=== PATIENT | male | born 1945 | race Caucasian/White ===

== ENCOUNTER → 2018-01-02 09:39 | Outpatient (CLI) | payer MEDICARE, OTHER, SELFPAY ==
[2018-01-02 10:32] LABS: Hemoglobin 14.4 g/dl (13.0-16.5); Mean Corp Hgb Conc 33.5 g/gl (32-36); Mean Corpuscular Hgb 30.4 pg (27.0-32.0); Mean Corpuscular Volume 90.9 fL (80-94); Mean Platelet Vol. 11.2 fl (6.2-12.0); Platelet Count 221 K/mm3 (150-450); RBC Distribution Width CV 13.3 % (11.6-14.6); RBC Distribution Width SD 43.8 fl (35.1-43.9); Red Blood Count 4.73 M/mm3 (4.6-6.2); White Blood Count 7.1 K/mm3 (4.4-11.0)
[2018-01-02 10:50] LABS: AST(SGOT) 28 U/L (15-37); Alanine Aminotransfer ALT/SGPT 41 U/L (16-61); CRP < 2.90 mg/L (0.0-3.0); Creatinine, Serum 1.12 mg/dL (0.70-1.30); EST Glomerular Filtration Rate 68 mL/min (>60); Est Glom Filt Rate - Afr Amer 82 mL/min (>60)
[2018-01-02 10:51] LABS: Scan Indicated on CBC? Y/N NO
[2018-01-02 11:49] LABS: Erythrocyte Sedimentation Rate 2 mm/hr (0-20)
== END ==
PROVIDERS: Family Provider Family Medicine; PCP Family Medicine
DX: D64.9 Anemia, unspecified (principal); E11.40 Type 2 diabetes mellitus with diabetic neuropathy, unspecified; E78.5 Hyperlipidemia, unspecified; G47.30 Sleep apnea, unspecified; H40.9 Unspecified glaucoma; I10 Essential (primary) hypertension; K21.9 Gastro-esophageal reflux disease without esophagitis; L40.3 Pustulosis palmaris et plantaris; L40.52 Psoriatic arthritis mutilans; M17.9 Osteoarthritis of knee, unspecified; M25.569 Pain in unspecified knee; M50.90 Cervical disc disorder, unspecified, unspecified cervical region; M54.2 Cervicalgia; M89.9 Disorder of bone, unspecified; N40.1 Benign prostatic hyperplasia with lower urinary tract symptoms; R53.83 Other fatigue; Z68.33 Body mass index [BMI] 33.0-33.9, adult; Z79.899 Other long term (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
CPT/HCPCS: 36415; 82565; 84450; 84460; 85027; 85652; 86140

== ENCOUNTER → 2018-03-24 10:45 | Outpatient (CLI) | payer MEDICARE, OTHER, SELFPAY ==
[2018-03-24] MEDS: DiphenhydrAMINE 50 MG/ML Syringe 12.5 MG IV (10:52)
[2018-03-24 10:57] VITALS: BP 141/89; PULSE 56; RESP 18; TEMP 36.8; O2SAT 99; BMI 31.3
[2018-03-24 11:45] VITALS: BP 123/73; PULSE 50; RESP 16; TEMP 36.8; O2SAT 96
[2018-03-24 12:02] VITALS: BP 119/63; PULSE 56; RESP 16; TEMP 36.7; O2SAT 95
[2018-03-24 12:19] VITALS: BP 119/74; PULSE 53; RESP 16; TEMP 36.8; O2SAT 96
[2018-03-24 12:35] VITALS: BP 137/71; PULSE 73; RESP 18; TEMP 36.4; O2SAT 96
[2018-03-24 14:10] VITALS: BP 136/72; PULSE 58; RESP 16; TEMP 36.4; O2SAT 98
== END ==
PROVIDERS: Family Provider Family Medicine; PCP Family Medicine
DX: L40.50 Arthropathic psoriasis, unspecified (principal)
CPT/HCPCS: 96365; 96366; 96375; J7050; A4216; Q5103

== ENCOUNTER → 2018-04-07 10:55 | Outpatient (CLI) | payer MEDICARE, OTHER, SELFPAY ==
[2018-04-07 11:20] VITALS: BP 124/68; PULSE 60; RESP 18; TEMP 36.3; O2SAT 99; BMI 31.1
[2018-04-07] MEDS: DiphenhydrAMINE 50 MG/ML Syringe 12.5 MG IV (11:55)
[2018-04-07 12:25] VITALS: BP 118/68; PULSE 60; RESP 16; TEMP 36.2; O2SAT 97
[2018-04-07 12:46] VITALS: BP 128/67; PULSE 71; RESP 16; TEMP 36.3; O2SAT 97
[2018-04-07 13:01] VITALS: BP 112/59; PULSE 77; RESP 18; TEMP 36.2; O2SAT 99
[2018-04-07 13:15] VITALS: BP 106/69; PULSE 58; RESP 18; TEMP 35.9; O2SAT 95
[2018-04-07 14:15] VITALS: BP 107/62; PULSE 61; RESP 16; O2SAT 98
== END ==
PROVIDERS: Family Provider Family Medicine; PCP Family Medicine; Visit Provider Internal Medicine Rheumatology
DX: L40.50 Arthropathic psoriasis, unspecified (principal)
CPT/HCPCS: 96365; 96366; 96375; J7050; A4216; Q5103

== ENCOUNTER → 2018-04-13 09:05 | Outpatient (CLI) | payer MEDICARE, OTHER, SELFPAY ==
[2018-04-13 09:57] LABS: Erythrocyte Sedimentation Rate 5 mm/hr (0-20)
[2018-04-13 09:58] LABS: Hematocrit 39.8 % (40-54); Hemoglobin 13.8 g/dl (13.0-16.5); Mean Corp Hgb Conc 34.7 g/gl (32-36); Mean Corpuscular Hgb 32.2 pg (27.0-32.0); Mean Corpuscular Volume 92.8 fL (80-94); Mean Platelet Vol. 10.8 fl (6.2-12.0); Platelet Count 201 K/mm3 (150-450); RBC Distribution Width CV 13.8 % (11.6-14.6); RBC Distribution Width SD 45.7 fl (35.1-43.9); Red Blood Count 4.29 M/mm3 (4.6-6.2); White Blood Count 6.7 K/mm3 (4.4-11.0)
[2018-04-13 10:04] LABS: Scan Indicated on CBC? Y/N NO
[2018-04-13 10:50] LABS: AST(SGOT) 30 U/L (15-37); Alanine Aminotransfer ALT/SGPT 41 U/L (16-61); CRP < 2.90 mg/L (0.0-3.0); Creatinine, Serum 1.22 mg/dL (0.70-1.30); EST Glomerular Filtration Rate 62 mL/min (>60); Est Glom Filt Rate - Afr Amer 75 mL/min (>60)
== END ==
PROVIDERS: Family Provider Family Medicine; PCP Family Medicine; Visit Provider Internal Medicine Rheumatology
DX: D64.9 Anemia, unspecified (principal); E11.40 Type 2 diabetes mellitus with diabetic neuropathy, unspecified; E78.5 Hyperlipidemia, unspecified; G47.30 Sleep apnea, unspecified; H40.9 Unspecified glaucoma; I10 Essential (primary) hypertension; K21.9 Gastro-esophageal reflux disease without esophagitis; L40.3 Pustulosis palmaris et plantaris; L40.52 Psoriatic arthritis mutilans; M17.9 Osteoarthritis of knee, unspecified; M50.90 Cervical disc disorder, unspecified, unspecified cervical region; M89.9 Disorder of bone, unspecified; N40.1 Benign prostatic hyperplasia with lower urinary tract symptoms; R53.83 Other fatigue; Z79.899 Other long term (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
CPT/HCPCS: 36415; 82565; 84450; 84460; 85027; 85652; 86140

== ENCOUNTER → 2018-05-02 12:52 | Outpatient (CLI) | payer MEDICARE, OTHER, SELFPAY ==
--- NOTE | 2018-05-02 12:57 | CT_ITS ---
STUDY: CT MAXILLOFACIAL SINUSES REASON FOR EXAM: Male, 72 years old. Chronic maxillary sinusitis RADIATION DOSAGE (If Supplied By Facility): CTDIvol = ( 33.06 ) mGy, DLP = ( 928.89 ) mGycm TECHNIQUE: The patient was scanned in a multi detector CT scanner. High resolution axial imaging was performed without the administration of intravenous contrast material. Sagittal and coronal images were reconstructed. Individualized dose optimization techniques were used for this CT. COMPARISON: None. FINDINGS: The nasal septum is midline. Hypertrophic changes of the turbinates are noted. 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 Chronic inflammatory changes in the left frontal sinus,, both maxillary sinuses and the anterior ethmoid air cells. The sphenoid sinuses are clear. CT/Sinus/Facial Bone IMPRESSION: Bilateral uncinectomies. Chronic inflammatory changes in the left frontal sinus, both maxillary sinuses and the anterior ethmoid air cells Electronically Signed: Rudolph Win, at 6:46 EDT Tel , Service support ,
== END ==
PROVIDERS: Family Provider Family Medicine; PCP Family Medicine; Visit Provider Otolaryngology
DX: J32.0 Chronic maxillary sinusitis (principal)
CPT/HCPCS: 70486

== ENCOUNTER → 2018-05-05 10:25 | Outpatient (CLI) | payer MEDICARE, OTHER, SELFPAY ==
[2018-05-05 10:37] VITALS: BP 142/85; PULSE 57; RESP 16; TEMP 36.4; O2SAT 97; BMI 32.0
[2018-05-05] MEDS: DiphenhydrAMINE 50 MG/ML Syringe 12.5 MG IV (10:49)
[2018-05-05 11:30] VITALS: BP 116/66; PULSE 56; RESP 16; TEMP 36.6; O2SAT 95
[2018-05-05 11:53] VITALS: BP 114/71; PULSE 79; RESP 16; TEMP 36.6; O2SAT 98
[2018-05-05 12:10] VITALS: BP 124/73; PULSE 78; RESP 16; TEMP 36.6; O2SAT 96
[2018-05-05 12:27] VITALS: BP 122/74; PULSE 68; RESP 16; TEMP 36.6; O2SAT 96
[2018-05-05 13:29] VITALS: BP 115/69; PULSE 65; RESP 18; TEMP 36.4; O2SAT 95
== END ==
PROVIDERS: Family Provider Family Medicine; PCP Family Medicine; Visit Provider Internal Medicine Rheumatology
DX: L40.50 Arthropathic psoriasis, unspecified (principal)
CPT/HCPCS: 96365; 96366; 96375; J7050; A4216; Q5103

== ENCOUNTER → 2018-05-27 09:14 | Outpatient (CLI) | payer MEDICARE, OTHER, SELFPAY ==
[2018-05-27 10:44] LABS: Hematocrit 40.8 % (40-54); Hemoglobin 13.6 g/dl (13.0-16.5); Mean Corp Hgb Conc 33.3 g/gl (32-36); Mean Corpuscular Hgb 31.3 pg (27.0-32.0); Mean Corpuscular Volume 93.8 fL (80-94); Mean Platelet Vol. 10.5 fl (6.2-12.0); Platelet Count 248 K/mm3 (150-450); RBC Distribution Width SD 44.8 fl (35.1-43.9); Red Blood Count 4.35 M/mm3 (4.6-6.2); White Blood Count 7.6 K/mm3 (4.4-11.0)
[2018-05-27 10:48] LABS: Scan Indicated on CBC? Y/N NO
[2018-05-27 10:52] LABS: Erythrocyte Sedimentation Rate 10 mm/hr (0-20)
[2018-05-27 10:54] LABS: PSA,Total- Diagnostic 1.13 ng/mL (0.0-4.0)
[2018-05-27 11:55] LABS: AST(SGOT) 27 U/L (15-37); Alanine Aminotransfer ALT/SGPT 39 U/L (16-61); CRP < 2.90 mg/L (0.0-3.0); Creatinine, Serum 1.15 mg/dL (0.70-1.30); EST Glomerular Filtration Rate 66 mL/min (>60); Est Glom Filt Rate - Afr Amer 80 mL/min (>60)
== END ==
PROVIDERS: Internal Medicine Rheumatology; Family Provider Family Medicine; PCP Family Medicine; Visit Provider Urology
DX: L40.50 Arthropathic psoriasis, unspecified (principal); L40.52 Psoriatic arthritis mutilans; L40.3 Pustulosis palmaris et plantaris; M17.0 Bilateral primary osteoarthritis of knee; M50.90 Cervical disc disorder, unspecified, unspecified cervical region; Z85.46 Personal history of malignant neoplasm of prostate; Z79.1 Long term (current) use of non-steroidal anti-inflammatories (NSAID); Z79.899 Other long term (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
CPT/HCPCS: 36415; 82565; 84153; 84450; 84460; 85027; 85652; 86140

== ENCOUNTER → 2018-06-30 10:56 | Outpatient (CLI) | payer MEDICARE, OTHER, SELFPAY ==
[2018-06-30] VITALS (7 sets, daily range): BP systolic 110–132; BP diastolic 61–76; PULSE 54–79; RESP 16–18; TEMP 36.4–36.6; O2SAT 94–100; BMI 30.9
[2018-06-30] MEDS: DiphenhydrAMINE 50 MG/ML Syringe 12.5 MG IV (12:10)
== END ==
PROVIDERS: Family Provider Family Medicine; PCP Family Medicine; Visit Provider Internal Medicine Rheumatology
DX: L40.50 Arthropathic psoriasis, unspecified (principal)
CPT/HCPCS: 96365; 96366; 96375; J7050; A4216; Q5103

== ENCOUNTER → 2018-07-27 14:02 | Outpatient (CLI) | payer MEDICARE, OTHER, SELFPAY ==
[2018-07-27 14:54] LABS: Erythrocyte Sedimentation Rate 5 mm/hr (0-20)
[2018-07-27 14:56] LABS: Hematocrit 39.7 % (40-54); Hemoglobin 13.2 g/dl (13.0-16.5); Mean Corp Hgb Conc 33.2 g/gl (32-36); Mean Corpuscular Hgb 31.1 pg (27.0-32.0); Mean Corpuscular Volume 93.6 fL (80-94); Mean Platelet Vol. 10.8 fl (6.2-12.0); Platelet Count 231 K/mm3 (150-450); RBC Distribution Width CV 13.6 % (11.6-14.6); RBC Distribution Width SD 45.9 fl (35.1-43.9); Red Blood Count 4.24 M/mm3 (4.6-6.2); White Blood Count 7.8 K/mm3 (4.4-11.0)
[2018-07-27 15:02] LABS: Scan Indicated on CBC? Y/N NO
[2018-07-27 17:41] LABS: AST(SGOT) 29 U/L (15-37); Alanine Aminotransfer ALT/SGPT 44 U/L (16-61); CRP < 2.90 mg/L (0.0-3.0); Creatinine, Serum 1.24 mg/dL (0.70-1.30); EST Glomerular Filtration Rate 60 mL/min (>60); Est Glom Filt Rate - Afr Amer 73 mL/min (>60)
== END ==
PROVIDERS: Family Provider Family Medicine; PCP Family Medicine; Visit Provider Internal Medicine Rheumatology
DX: M17.0 Bilateral primary osteoarthritis of knee (principal); M50.90 Cervical disc disorder, unspecified, unspecified cervical region; L40.52 Psoriatic arthritis mutilans; L40.3 Pustulosis palmaris et plantaris; L40.50 Arthropathic psoriasis, unspecified; L40.9 Psoriasis, unspecified; Z79.01 Long term (current) use of anticoagulants; Z79.899 Other long term (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
CPT/HCPCS: 36415; 82565; 84450; 84460; 85027; 85652; 86140

== ENCOUNTER → 2018-08-25 10:55 | Outpatient (CLI) | payer MEDICARE, OTHER, SELFPAY ==
[2018-08-25] VITALS (7 sets, daily range): BP systolic 120–149; BP diastolic 59–67; PULSE 57–80; RESP 16–18; TEMP 36.2–36.6; O2SAT 97–99; BMI 31.1
[2018-08-25] MEDS: DiphenhydrAMINE 50 MG/ML Syringe 12.5 MG IV (11:31)
== END ==
PROVIDERS: Family Provider Family Medicine; PCP Family Medicine; Referring Provider Internal Medicine Rheumatology; Visit Provider Internal Medicine Rheumatology
DX: L40.50 Arthropathic psoriasis, unspecified (principal); L40.52 Psoriatic arthritis mutilans; L40.3 Pustulosis palmaris et plantaris; L40.9 Psoriasis, unspecified; M17.0 Bilateral primary osteoarthritis of knee; M50.90 Cervical disc disorder, unspecified, unspecified cervical region; Z79.899 Other long term (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
CPT/HCPCS: 96365; 96366; 96375; J7050; A4216; Q5103

== ENCOUNTER → 2018-09-30 08:47 | Outpatient (CLI) | payer MEDICARE, OTHER, SELFPAY ==
[2018-09-22 10:40] VITALS: BMI 31.0
[2018-09-30 10:30] LABS: AST(SGOT) 34 U/L (15-37); Alanine Aminotransfer ALT/SGPT 45 U/L (16-61); Albumin, Serum 3.4 g/dL (3.2-5.0); Alkaline Phosphatase 63 U/L (45-117); Anion Gap 6 (5-15); BUN 19 mg/dL (7-18); BUN/Creat Ratio 16.2 RATIO (10-20); Bilirubin, Direct 0.19 mg/dL (0.00-0.30); Calcium,Total 8.8 mg/dL (8.5-10.1); Chloride 105 mmol/L (98-107); Cholesterol 132 mg/dL (200); Creatinine, Serum 1.17 mg/dL (0.70-1.30); EST Glomerular Filtration Rate 65 mL/min (>60); Est Glom Filt Rate - Afr Amer 78 mL/min (>60); Globulin 3.6 g/dL (2.2-4.2); Glucose 154 mg/dL (74-106); High Density Lipoprotein 43 mg/dL; Potassium 4.3 mmol/L (3.5-5.1); Sodium Level 142 mmol/L (136-145); Triglycerides 90 mg/dL; Very Low Density Lipoprotein 18 mg/dL (5-40)
== END ==
PROVIDERS: Family Provider Family Medicine; PCP Family Medicine; Referring Provider Internal Medicine Cardiovascular Disease; Visit Provider Internal Medicine Cardiovascular Disease
DX: I10 Essential (primary) hypertension (principal); E78.5 Hyperlipidemia, unspecified
CPT/HCPCS: 36415; 80048; 80061; 80076

== ENCOUNTER → 2018-10-20 10:26 | Outpatient (CLI) | payer MEDICARE, OTHER, SELFPAY ==
[2018-10-20 10:58] VITALS: BP 125/76; PULSE 52; RESP 18; TEMP 26.6; O2SAT 96; BMI 31.5
[2018-10-20] MEDS: DiphenhydrAMINE 50 MG/ML Syringe 12.5 MG IV (11:17)
[2018-10-20 11:51] VITALS: BP 118/64; PULSE 56; RESP 16; TEMP 36.6; O2SAT 97
[2018-10-20 12:06] VITALS: BP 114/72; PULSE 56; RESP 16; TEMP 36.7; O2SAT 97
[2018-10-20 12:25] VITALS: BP 132/78; PULSE 65; RESP 18; TEMP 36.4; O2SAT 98
[2018-10-20 12:42] VITALS: BP 122/68; PULSE 71; RESP 16; TEMP 37.1
== END ==
PROVIDERS: Family Provider Family Medicine; PCP Family Medicine; Referring Provider Internal Medicine Rheumatology; Visit Provider Internal Medicine Rheumatology
DX: M50.90 Cervical disc disorder, unspecified, unspecified cervical region (principal); M17.0 Bilateral primary osteoarthritis of knee; L40.50 Arthropathic psoriasis, unspecified; L40.52 Psoriatic arthritis mutilans; L40.3 Pustulosis palmaris et plantaris; L40.9 Psoriasis, unspecified; Z79.899 Other long term (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
CPT/HCPCS: 96365; 96366; 96375; J7050; A4216; Q5103

== ENCOUNTER → 2018-12-02 10:52 | Outpatient (CLI) | payer MEDICARE, OTHER, SELFPAY ==
[2018-10-20 10:58] VITALS: BMI 31.5
[2018-12-02 11:24] LABS: Absolute Lymphocyte Count 1.77 X10^3/ul (0.83-4.51); Absolute Neutrophil Count 4.2 X10^3/uL (2.0-7.7); Basophil# 0.03 X10^3/uL; Basophil% 0.4 % (0-1); Eosinophil# 0.47 X10^3/uL; Eosinophils% 6.6 % (0-5); Erythrocyte Sedimentation Rate 3 mm/hr (0-20); Hemoglobin 14.3 g/dl (13.0-16.5); Lymphocyte # 1.77 X10^3/ul (4.0); Lymphocyte % 24.9 % (19-41); Mean Corpuscular Hgb 32.1 pg (27.0-32.0); Mean Corpuscular Volume 94.2 fL (80-94); Mean Platelet Vol. 10.3 fl (6.2-12.0); Monocyte# 0.67 X10^3/uL; Monocyte% 9.4 % (0-10); Neutrophil # 4.17 X10^3/uL (2.7-7.7); Neutrophil % 58.6 % (47-70); Platelet Count 243 K/mm3 (150-450); RBC Distribution Width CV 13.7 % (11.6-14.6); RBC Distribution Width SD 45.3 fl (35.1-43.9); Red Blood Count 4.46 M/mm3 (4.6-6.2); White Blood Count 7.1 K/mm3 (4.4-11.0)
[2018-12-02 11:25] LABS: POSITIVE COUNT NO; POSITIVE DIFFERENTIAL NO; POSITIVE MORPHOLOGY NO
[2018-12-02 11:47] LABS: AST(SGOT) 29 U/L (15-37); Alanine Aminotransfer ALT/SGPT 45 U/L (16-61); CRP < 2.90 mg/L (0.0-3.0); Creatinine, Serum 1.32 mg/dL (0.70-1.30); EST Glomerular Filtration Rate 56 mL/min (>60); Est Glom Filt Rate - Afr Amer 68 mL/min (>60)
--- OUTSIDE RECORDS SUMMARY | 2019-02-05 10:06 | XMS RPT_ITS ---
:1945 Author Organization OHIP Support Name Relationship Address Phone DELMAR GRACE Unavailable [address] + [place] [address] R Unavailable Unavailable Unavailable ZIA GRACEE Unavailable [address] + [place] [address] R Unavailable Unavailable Unavailable ZIA GRACEE Unavailable [address] + [place] [address] R Unavailable Unavailable Unavailable GRACE DELMAR Unavailable [address] + [place] [address] R Unavailable Unavailable Unavailable GRACE DELMAR Unavailable [address] + [place] [address] R Unavailable Unavailable Unavailable GRACE DELMAR Unavailable [address] + [place] [address] R Unavailable Unavailable Unavailable GRACE DELMAR Unavailable [address] + [place] [address] R Unavailable Unavailable Unavailable GRACE DELMAR Unavailable [address] + [place] [address] R Unavailable Unavailable Unavailable GRACE DELMAR Unavailable [address] + [place] [address] R Unavailable Unavailable Unavailable GRACE DELMAR Unavailable [address] + [place] [address] R Unavailable Unavailable Unavailable GRACE DELMAR Unavailable [address] + [place] [address] R Unavailable Unavailable Unavailable GRACE DELMAR Unavailable [address] + [place] [address] R Unavailable Unavailable Unavailable GRACE DELMAR Unavailable [address] [phone] [place] [address] R Unavailable Unavailable Unavailable GRACE, DELMAR Unavailable [address] [phone] [place] [address] R Unavailable Unavailable Unavailable GRACE, DELMAR Unavailable [address] [phone] [place] [address] R Unavailable Unavailable Unavailable GRACE, DELMAR Unavailable [address] [phone] [place] [address] R Unavailable Unavailable Unavailable GRACE, DELMAR Unavailable [address] [phone] [place] [address] R Unavailable Unavailable Unavailable GRACE, DELMAR Unavailable [address] [phone] [place] [address] R Unavailable Unavailable Unavailable Care Team Providers Name Role Phone COCO SHAH JR. Attending Unavailable TURNER, ZACH A Referring Unavailable COCO SHAH JR. Unavailable SELF, SELF Referring Unavailable STAINBRONANCY JRKeerthi, COCO Attending Unavailable STAINBROOK JR.COCO Referring Unavailable STAINBROOK JR.COCO Attending Unavailable SELF, SELF Referring Unavailable StainCoco loving Jr. Attending Unavailable Coco Shah Jr. Referring Unavailable Turner, Zach Primary Care Unavailable SOLEDAD ADEN Attending Unavailable Turner, Zach Primary Care Unavailable SOLEDAD ADEN Attending Unavailable Turner, Zach Primary Care Unavailable Turner, Zach Primary Care Unavailable SOLEDAD ADEN Attending Unavailable SOLEDAD ADEN Referring Unavailable Coco Shah Jr. Attending Unavailable Coco Shah Jr. Referring Unavailable Turner, Zach Primary Care Unavailable Coco Shah Jr. Attending Unavailable StainbroCoco cruz Jr. Referring Unavailable Turner, Zach Primary Care Unavailable Memo Hernández Consulting Unavailable Tomasa Russell Attending Unavailable Turner, Zach Referring Unavailable Coco Shah Jr. Attending Unavailable Stainbronancy Sánchez.Coco Referring Unavailable Turner, Zach Primary Care Unavailable Wyatt, Zach Attending Unavailable Wyatt, Zach Referring Unavailable Turner, Zach Primary Care Unavailable Memo Hernández Attending Unavailable Turner, Zach Primary Care Unavailable Memo Hernández Referring Unavailable Pablo Sánchez.Coco Consulting Unavailable Stainbrook Jr., Coco Carter Attending Unavailable Stainbrook Jr., Coco Carter Referring Unavailable Turner, Zach Primary Care Unavailable Winnie Corona Attending Unavailable Stainbrook Jr., Coco Carter Attending Unavailable Stainbrook Jr., Coco Carter Referring Unavailable Turner, Zach Primary Care Unavailable Stainbrook Jr., Coco Carter Attending Unavailable Stainbrook Jr., Coco Carter Referring Unavailable Turner, Zach Primary Care Unavailable Winnie Corona Attending Unavailable Moodispaw, Miguelanegl Attending Unavailable Turner, Zach Referring Unavailable Moodispaw, Miguelangel Attending Unavailable Moodispaw, Miguelangel Referring Unavailable Turner, Zach Primary Care Unavailable Stainbrook Jr., Coco Carter Attending Unavailable Stainbrook Jr., Coco Carter Referring Unavailable Turnre, Zach Primary Care Unavailable PROBLEMS PROBLEMS DATE TYPE CONDITION / CODE ATTENDING STATUS SOURCE 12/02/2018 Unknown Z79.899 - Other Stainbrook Jr., Active [place] custodial (current) Coco Carter [facility] drug therapy / Hospital Z79.899(ICD-10) Repository 12/02/2018 Unknown L40.50 - Stainbrook Jr., Active [facility]oco Carter [facility] psoriasis, Hospital unspecified / Repository L40.50(ICD-10) 12/02/2018 Unknown R94.4 - Abnormal Stainbrook Jr., Active [place] results of kidney [facility]oco Carter [facility] function studies / Hospital R94.4(ICD-10) Repository 12/02/2018 Unknown 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., 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) use of Coco Carter [facility] non-steroidal Hospital anti-inflammatories Repository (NSAID) / Z79.1(ICD-10) 12/02/2018 Unknown M17.0 - Bilateral Stainbrook Jr., 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 / Repository M17.0(ICD-10) 12/02/2018 Unknown M50.90 - Cervical Stainbrook Jr., Active [place] disc disorder, [facility]oco Carter [facility] unspecified, Hospital unspecified Repository cervical region / M50.90(ICD-10) 12/02/2018 Unknown 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., 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 Coco Carter [facility] / L40.52(ICD-10) Hospital Repository 12/02/2018 Unknown 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., 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 / Hospital L40.3(ICD-10) Repository 12/02/2018 Unknown L30.9 - Dermatitis, Stainbrook Jr., Active [place] unspecified / [facility] L30.9(ICD-10) Hospital Repository 09/30/2018 Unknown E78.5 - Miguelangel Watlon Active [place] Hyperlipidemia, Community unspecified / Hospital E78.5(ICD-10) Repository 09/30/2018 Unknown I10 - Essential MoodispaMiguelangel jacobs Active [place] (primary) Community hypertension / Hospital I10(ICD-10) Repository 09/25/2018 Admitting Other custodial STAINBROOK JR., Active [facility] [place] [facility] therapy / Repository Z79.899(ICD-10) 09/25/2018 Admitting Psoriatic arthritis STAINBROOK JR., 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 / [facility] L40.52(ICD-10) Repository 09/25/2018 Admitting Pustulosis palmaris STAINBROOK JR., 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 / [facility] L40.3(ICD-10) Repository 09/25/2018 Admitting Psoriasis, STAINBROOK JR., Active [facility] unspecified / [facility] L40.9(ICD-10) Repository 09/25/2018 Admitting Abnormal results of STAINBROOK JR., Active [facility] kidney function [facility] studies / Repository R94.4(ICD-10) 08/29/2017 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 (current) STAINBROOK JR., Active [facility] use of [facility] non-steroidal Repository anti-inflammatories (nsaid) / Z79.1(ICD-10) 04/18/2017 Admitting Bilateral primary STAINBROOK JR., Active [facility] osteoarthritis of [facility] knee / Repository M17.0(ICD-10) 04/18/2017 Admitting Arthropathic STAINBROOK JR., Active [facility] psoriasis, [facility] [place] unspecified / Repository L40.50(ICD-10) 04/18/2017 Admitting Dermatitis, STAINBROOK JR., Active [facility] Diagnosis unspecified / [facility] L30.9(ICD-10) Repository 03/04/2017 Admitting Cervical disc STAINBROOK JR., Active [facility] disorder, [facility] unspecified, Repository unspecified cervical region / M50.90(ICD-10) 05/22/2018 Admitting Joint Pain / STAINBROOK JR., Active [facility] Diagnosis [id number]() [facility] Repository 04/13/2018 Unknown D64.9 - Anemia, Stainbrook Jr., Active [place] unspecified / 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 / G47.30(ICD-10) Hospital Repository 04/13/2018 Unknown H40.9 - Unspecified Stainbrook Jr., Active [place] glaucoma / [facility] H40.9(ICD-10) Hospital Repository 04/13/2018 Unknown K21.9 - Stainbrook Jr., Active [place] Gastro-esophageal [facility] reflux disease Hospital without esophagitis Repository / K21.9(ICD-10) PROCEDURES PROCEDURES No Procedure Records FoundRESULTS RESULTS ERYTHROCYTE SED RATE Collected: 12/02/2018 Status: F Source: [place] 11:03 [facility] [place] REPOSITORY TYPE CODE TESTS RESULT OUT OF RANGE REFERENCE UNITS LAB L102.0000 0-20 mm/hr Normal SED RATE 3 Performed By: #### L101.9900, L100.0100 #### [facility] [address] [place], [address] CBC W/DIFF, AUTOMATED Collected: 12/02/2018 Status: F Source: [place] 11:03 AM [facility] [place] TYPE CODE TESTS RESULT OUT OF RANGE REFERENCE UNITS LAB L100.1000 4.4-11.0 K/mm3 Normal WBC 7.1 LAB L100.1200 4.6-6.2 M/mm3 Low RBC 4.46 LAB L100.1300 13.0-16.5 g/dl Normal HGB 14.3 LAB L100.1400 40-54 % Normal HCT 42.0 LAB L100.1500 80-94 fL High MCV 94.2 LAB L100.1600 27.0-32.0 pg High MCH 32.1 LAB L100.1700 32-36 g/gl Normal MCHC 34.0 LAB L100.1810 11.6-14.6 % Normal RDW CV 13.7 LAB L100.1820 35.1-43.9 fl High RDW SD 45.3 LAB L100.1900 150-450 K/mm3 Normal PLT 243 LAB L100.2000 6.2-12.0 fl Normal MPV 10.3 LAB L100.2100 47-70 % Normal NEUT% 58.6 LAB L100.2200 19-41 % Normal LY% 24.9 LAB L100.2300 0-10 % Normal MONO% 9.4 LAB L100.2400 0-5 % High EO% 6.6 LAB L100.2500 0-1 % Normal BASO% 0.4 LAB L100.2550 0.0-0.9 % Normal IM GRAN % 0.100 Result Comment: IG% - Immature Granulocytes (promyelocytes, myelocytes and metamyelocytes) > 1% indicates that a LEFT SHIFT is Present. LAB L100.2620 2.0-7.7 X10 3/uL Normal Absolute Neut 4.2 LAB L100.2720 0.83-4.51 X10 3/ul Normal Absolute Lymph 1.77 Performed By: #### L101.9900, L100.0100 #### [facility] [address] [facility]. [place], [place], [id number] SERUM CREATININE AND Collected: 12/02/2018 Status: F Source: [place] GFR 11:03 AM [facility] [place] TYPE CODE TESTS RESULT OUT OF RANGE REFERENCE UNITS LAB L501.1100 0.70-1.30 mg/dL High 1.32 CREAT,SERUM Result Comment: The validity of the calculated GFR AND GFRAA in patients over 70 years has not been determined. Clinical correlation is essential. LAB L501.1110 >60 mL/min Low EST GFR 56 Result Comment: Non- GFR Calc LAB L501.1115 >60 mL/min Normal EST GFR - AA 68 Result Comment: GFR Calc Performed By: #### L501.1105, L501.4100, L501.4405, L501.6710 #### [facility] [address] [place], [place], AST(SGOT) Collected: 12/02/2018 Status: F Source: [place] 11:03 AM [facility] [place] TYPE CODE TESTS RESULT OUT OF RANGE REFERENCE UNITS LAB L501.4100 15-37 U/L Normal AST 29 Performed By: #### L501.1105, L501.4100, L501.4405, L501.6710 #### [facility] [address] [place], [address] ALANINE AMINOTRANSFERAS Collected: 12/02/2018 Status: F Source: [place] (SGPT) 11:03 AM [facility] [place] TYPE CODE TESTS RESULT OUT OF RANGE REFERENCE UNITS LAB L501.4405 16-61 U/L Normal ALT 45 Performed By: #### L501.1105, L501.4100, L501.4405, L501.6710 #### [facility] [address], [address] CRP Collected: 12/02/2018 Status: F Source: [place] 11:03 AM [facility] [place] TYPE CODE TESTS RESULT OUT OF RANGE REFERENCE UNITS LAB L501.6710 0.0-3.0 mg/L Normal < 2.90 C-REACTIVE PROT Result Comment: C-Reactive Protein (CRP) provides useful information for the diagnosis, therapy and monitoring of inflammatory processes and associated diseases. For the evaluation of Relative Risk for Cardiovascular Disease, a High Sensitivity CRP (HSCRP) should be ordered. Performed By: #### L501.1105, L501.4100, L501.4405, L501.6710 #### [facility] [address] [place], [address] BASIC METABOLIC Collected: 09/30/2018 Status: F Source: [place] PROFILE (BMP) 8:58 AM [facility] [place] TYPE CODE TESTS RESULT OUT OF RANGE REFERENCE UNITS LAB L501.0100 74-106 mg/dL High GLU 154 Result Comment: Fasting Glucose result greater than or equal to 126 mg/dL suggests DIABETES MELLITUS per A.D.A. criteria. Please note revised GLUCOSE reference range effective 2017. LAB L501.1000 7-18 mg/dL High BUN 19 LAB L501.1100 0.70-1.30 mg/dL Normal CREAT,SERUM 1.17 Result Comment: The validity of the calculated GFR AND GFRAA in patients over 70 years has not been determined. Clinical correlation is essential. LAB L501.1110 >60 mL/min Normal EST GFR 65 Result Comment: Non- GFR Calc LAB L501.1115 >60 mL/min Normal EST GFR - AA 78 Result Comment: GFR Calc LAB L501.1300 10-20 RATIO Normal BUN/CRE 16.2 LAB L501.2200 8.5-10.1 mg/dL CA Normal 8.8 LAB L501.5300 136-145 mmol/L NA Normal 142 LAB L501.5600 3.5-5.1 mmol/L K Normal 4.3 LAB L501.5900 98-107 mmol/L CL Normal 105 LAB L501.6100 21.0-32.0 mmol/L Normal CO2 31.0 LAB L501.6200 5-15 Normal GAP 6 Performed By: #### L500.2500, L500.3400, L500.4100 #### [facility] [address] [place], [place], [address] LIVER PROFILE Collected: 09/30/2018 Status: F Source: [place] 8:58 AM [facility] [place] TYPE CODE TESTS RESULT OUT OF RANGE REFERENCE UNITS LAB L501.1500 6.4-8.2 g/dL Normal T PROT 7.0 LAB L501.1800 3.2-5.0 g/dL Normal ALB 3.4 LAB L501.1950 2.2-4.2 g/dL Normal GLOB 3.6 LAB L501.4100 15-37 U/L Normal AST 34 LAB L501.4305 45-117 U/L Normal ALK P 63 LAB L501.4405 16-61 U/L Normal ALT 45 LAB L501.4600 0.20-1.00 mg/dL Normal T BILI 0.60 LAB L501.4700 0.00-0.30 mg/dL Normal D BILI 0.19 Performed By: #### L500.2500, L500.3400, L500.4100 #### [facility] [address] [place], [place], [id number] LIPID PROFILE Collected: 09/30/2018 Status: F Source: [place] 8:58 AM [facility] [place] TYPE CODE TESTS RESULT OUT OF RANGE REFERENCE UNITS LAB L501.4900 200 mg/dL Normal CHOL 132 Result Comment: <200 mg/dL Desirable 200-240 mg/dL Borderline >240 mg/dL High Risk LAB L501.5000 mg/dL Normal TRIG 90 Result Comment: The drugs N-Acetylcysteine and Metamizole may falsely depress this assay. Serum Triglycerides Reference Interval Normal <150 mg/dL Borderline high 150 - 199 mg/dL High 200 - 499 mg/dL Very High > or = 500 mg/dL LAB L501.6400 mg/dL Normal HDL 43 Result Comment: The drugs N-Acetylcysteine and Metamizole may falsely depress this assay. Reference Range HDL <40 mg/dL Low HDL Cholesterol HDL >or= 60 mg/dL High HDL Cholesterol LAB L501.6500 0-130 mg/dL Normal LDL 71 LAB L501.6600 5-40 mg/dL Normal VLDL 18 Performed By: #### L500.2500, L500.3400, L500.4100 #### [facility] [address] [place], [place], [id number] CBC Collected: 09/25/2018 Status: F Source: [facility] 10:36 AM [facility] [place] REPOSITORY TYPE CODE TESTS RESULT OUT OF REFERENCE UNITS RANGE LAB WBC 3.6-11.0 /cmm WBC COUNT 8.2 LAB RBC 4.0-6.1 /cmm RBC COUNT 4.48 LAB HGB 14.0-18.0 G/DL HEMOGLOBIN 14.0 LAB HCT 42.0-52.0 % Low HEMATOCRIT 41.4 LAB MCV 80.0-100.0 FL MCV 92.6 LAB MCH 26.0-35.0 PG MCH 31.3 LAB MCHC 27.0-37.0 G/DL MCHC 33.8 LAB RDW 11.5-14.5 % RDW 13.7 LAB PLTC 130.0-400.0 /cmm PLATELET COUNT 272 LAB MPV 7.4-11.0 FL MPV 8.8 LAB DTYPE % DTYPE AUTO DIFF LAB NEUT 37.0-75.0 % NEUTROPHIL 65.4 LAB LYMP 20.0-55.0 % LYMPHOCYTE 21.1 LAB AOMONO 0.0-10.0 % MONOCYTE 8.5 LAB EOS 0.0-11.0 % EOSINOPHIL 4.4 LAB BASO 0.0-2.0 % BASOPHIL 0.6 LAB ANC 1.0-7.0 x10 ABSOLUTE NEUTROPHIL COUNT 5.4 LAB ALYM X10 ABSOLUTE LYMPHOCYTE 1.70 LAB AMONO X10 ABSOLUTE MONOCYTE 0.7 LAB AEO X10 ABSOLUTE EOS 0.40 LAB ABAS X10 ABSOLUTE BAS 0.0 Performed By: #### ACBC, ESR, ALT, AST, CREACT #### [place] [address] ESR Collected: 09/25/2018 Status: F Source: [facility] 10:36 AM [facility] [place] REPOSITORY TYPE CODE TESTS RESULT OUT OF RANGE REFERENCE UNITS LAB ESR 0-20 MM/HR ESR 12 Performed By: #### ACBC, ESR, ALT, AST, CREACT #### [place] [address] ALT Collected: 09/25/2018 Status: F Source: [facility] 10:36 AM [facility] [place] REPOS[place] TYPE CODE TESTS RESULT OUT OF RANGE REFERENCE UNITS LAB ALT 17-63 IU/L ALT 39 Performed By: #### ACBC, ESR, ALT, AST, CREACT #### [place] [address] AST Collected: 09/25/2018 Status: F Source: [facility] 10:36 AM [facility] [place] TYPE CODE TESTS RESULT OUT OF RANGE REFERENCE UNITS LAB AST 15-41 IU/L AST 34 Performed By: #### ACBC, ESR, ALT, AST, CREACT #### Testing performed at [place] [id number] C REACTIVE PROTEIN Collected: 09/25/2018 Status: F Source: [place] 10:36 [place] [facility] [place] TYPE CODE TESTS RESULT OUT OF REFERENCE UNITS RANGE LAB CREACT 0-10.0 MG/L C REACTIVE <8.9 PROTEIN Performed By: #### ACBC, ESR, ALT, AST, CREACT #### Testing performed at [facility] [address] [place] [address] CARDIOLOGY VISIT Observed: 09/22/2018 Status: F Source: [place] REPORT 5:10 PM [facility] [place] [facility] [address] [place] [address] OFFICE VISIT Date of Service: 09/22/18 MR#: [id number] Acct: [id number] Name: YESSI GRACE Rep #: [id number] : 1945 Provider: Miguelangel Walton MD Age/Sex: 73/M Location: [facility] [place] Status: Signed HPI HPI Details: YESSI GRACE, is a 73 M who presents to the office today for outpatient cardiovascular follow-up. Since his last office visit on 10/03/2017 he notes overall from a cardiac standpoint he feels he is been doing well. He denies any ongoing issues of classic angina pectoris nor is he had any overt issues of CHF or pulmonary edema. There has been no near syncope or syncope. He has had ongoing lower extremity peripheral pitting edema. This is worsened on the right side. His right lower extremity in the above the ankle area appears to be somewhat erythematous as well as edematous. It is not this way on the left. Intake Vital Signs09/22/18 Height 6 ft 09/22/18 Weight: 229 lb 09/22/18 Body Mass Index (BMI) 31.0 09/22/18 Blood Pressure 134/78 H Intake Visit Reasons: 6 M FU (pt r/s from -) Allergies Penicillins Adverse Reaction (Verified 09/22/18 10:41) Unknown Medications Finasteride [Proscar] 5 mg PO DAILY 02/03/16 [History Confirmed 09/22/18] Lisinopril [Zestril] 40 mg PO DAILY 02/03/16 [History Confirmed 09/22/18] Metformin HCl [Glucophage] 1,000 mg PO BIDCM 02/03/16 [History Confirmed 09/22/18] Ranitidine [Zantac] 150 mg PO DAILY 02/03/16 [History Confirmed 09/22/18] Tamsulosin HCl [Flomax] 0.4 mg PO DAILY 02/03/16 [History Confirmed 09/22/18] Timolol 0.5% [Timoptic] 1 drp EACH EYE BID 02/03/16 [History Confirmed 09/22/18] Vit C/E/Zn/Coppr/Lutein/Zeaxan [Preservision Areds 2 Softgel] 1 ea PO DAILY 02/03/16 [History Confirmed 09/22/18] metoprolol succinate ER 100 mg tablet,extended release 24 hr 100 mg PO BID #180 tab 06/21/18 [Rx Confirmed 09/22/18] Bimatoprost [Lumigan] 1 drp EACH EYE DAILY 06/30/18 [History Confirmed 09/22/18] Fexofenadine HCl 180 mg PO DAILY 06/30/18 [History Confirmed 09/22/18] Fluticasone 0.05% [Flonase Nasal Free Soil] 1 spray NASAL DAILY 06/30/18 [History Confirmed 09/22/18] Folic Acid 4 mg PO DAILY 06/30/18 [History Confirmed 09/22/18] 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 7.5 mg PO Q7D 06/30/18 [History Confirmed 09/22/18] Oxybutynin [Ditropan] 5 mg PO DAILY 06/30/18 [History Confirmed 09/22/18] Pyridoxine HCl [Vitamin B-6] 100 mg PO DAILY 06/30/18 [History Confirmed 09/22/18] hydrochlorothiazide 25 mg tablet 25 mg PO DAILY #90 tab 07/18/18 [Rx Confirmed 09/22/18] azithromycin 250 mg tablet See Rx Instructions PO .COMPLEX #6 tab 09/22/18 [Rx] ezetimibe 10 mg tablet 10 mg PO DAILY #90 tab 09/22/18 [Rx Confirmed 09/22/18] furosemide 40 mg tablet 40 mg PO DAILY #30 tab 09/22/18 [Rx Confirmed 09/22/18] infliximab-dyyb 100 mg intravenous solution 5 mg .ROUTE [id number] ea 09/22/18 [History Confirmed 09/22/18] potassium chloride ER 20 mEq tablet,extended release(part/cryst) 20 meq PO DAILY 09/22/18 [History Confirmed 09/22/18] [facility] Medical History Essential hypertension (Chronic) RAJESH (obstructive sleep apnea) (Chronic) Ectopic atrial tachycardia (Acute) Paroxysmal ventricular tachycardia (Acute) Premature atrial contractions (Acute) Shortness of breath (Chronic) Hyperlipidemia (Chronic) Premature ventricular contraction (Chronic) Supraventricular tachycardia (Acute) Long-term use of high-risk medication (Chronic) Body mass index 31.0-31.9, adult (Chronic) Diabetes mellitus (Chronic) 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) Acute osteomyelitis involving ankle and foot (Acute) Chronic osteomyelitis involving ankle and foot (Chronic) Cellulitis (Acute) Arthritis (Chronic) Psoriasis (Chronic) Hypertension (Inactive) Surgical History History of hernia repair (Resolved) History of partial amputation of toe (Resolved) History of tonsillectomy and adenoidectomy (Resolved) Family History Father Cancer Prostate Mother Depression Social History Smoking Status: Former smoker pack-years: 30 second hand exposure: No alcohol intake: current alcohol intake frequency: 0-2 drinks per day Alcohol type: hard liquor substance use type: does not use caffeine: Yes (4+ drinks/day) what type of physical activity do you participate in: running, weight training frequency: 1-2 times per week ROS Const Const: Negative for fatigue, weakness, weight gain, weight loss, frequent falls or excessive sweating Eyes Eyes: Negative for change in vision, blurry vision or transient loss of vision ENT ENT: Positive for balance problems (unsteadiness); negative for dizziness Cardio Chest Pain: No Palpitations: No Edema: Right (+1) Muscle aches with walking: None Resp Respiratory: Positive for SOB with activity (slight); negative for SOB at rest GI GI: Negative vomiting or vomiting blood/hematemesis : Negative for hematuria Musc Musc: Positive for balance problems (unsteadiness) and joint pain (HX arthritis); negative for muscle aches/ myalgia or muscle weakness Skin Skin: Negative non-healing lesions or rash Neuro Neuro: Negative for weakness, blurry vision, dizziness, lightheadedness, frequent falls or orthostatic symptoms Miah Hematologic/Lymphatic: Negative for easy bleeding Endo Endo: Negative for fatigue or excessive sweating Psych Psych: Negative for anxiety or depression Allergy Allergy/Immunology: Negative for hives, Negative for rash Cardiology Exam Const Appearance: cooperative, healthy appearing, comfortable, no acute distress, well developed and well groomed Nutritional Appearance: overweight Orientation: alert, awake and oriented x3 Head Head: normal to inspection, normocephalic and atraumatic Ears: hearing grossly normal bilaterally Nose: external nose normal Mouth: oral mucosae normal Eyes Eyelids: eyelids normal Conjunctivae: conjunctivae normal Pupils: PERRL EOM: EOM intact bilaterally Neck Neck: normal visual inspection and full ROM Carotids: normal carotid upstroke Chest Chest inspection: normal inspection of the chest, symmetric chest movement and normal respiratory effort Auscultation: Bilateral: Clear to Auscultation Cardio Palpation: normal PMI Rate: regular rate Rhythm: regular rhythm Heart sounds: S1 normal and S2 normal GI GI: normal to inspection, bowel sounds present and soft Neuro General: alert, awake, oriented x3 and moves all extremities Skin Skin: erythema (Right lower calf) Extremities Pulses: Normal: Right Radial Pulse, Left Radial Pulse Lower Extremity Edema: +2: Left, +3: Right Psych Psychological: normal affect Supplemental Info Transthoracic echocardiogram: 10/10/2017 Interpretation Summary Normal LV size. Left ventricular systolic function is normal. The estimated ejection fraction is 60 %. Mild (1+) tricuspid valve insufficiency. Pulmonary artery systolic pressure is 33 mmHg. Cardiac cath: 07/18/2007 FINAL IMPRESSION 1. Elevated left ventricular end systolic pressure compatible with decreased diastolic compliance. 2. Left ventricle: Preserved LV size, wall motion, and systolic function with an estimated LVEF of 55%. 3. Left main: Large short vessel with a very proximal [place] but with no angiographically appearing atherosclerotic coronary disease and no decreased arterial waveform or pressure damping upon engagement with the catheter. 4. LAD: 1rigiographically normal. 5. LcX: Large dominant vessel - angiographically normal. 6. Intermediate ramus angiographically normal. 7. RCA: Nondominant vessel - angiographically normal. Holter monitor: 01/04/2012 THIS JAY 24 HOUR HOLTER SCAN. SINUS RHYTHM. MINIMUM HEART RATE 51 BPM AT 3:44 AM. AVERAGE HEART RATE 72 BPM. MAXIMUM HEART RATE 102 BPM AT 9:52 PM. NO ACTIVITY RECORDED IN PT DIARY AT THIS TIME. RARE PREMATURE ATRIAL COMPLEXES. FOUR ATRIAL COUPETS. 20 BEATS IN ATRIAL TRIGEMINY. NO RUNS. OCCASIONAL PREMATURE VENTRICULAR COMPLEXES. 107 BEATS IN VENTRICULAR BIGEMINY AND 24 BEATS IN VENTRICULAR TRIGEMINY. 34 VENTRICULAR COUPLETS, ONE TRIPLET. NO RUNS. NO SYMPTOMS RECORDED IN PT. DIARY. Assessment AND Plan 1. Premature atrial beat I49.1 Plan At the present time he does not appear to be complaining of his ongoing ectopy. He will continue his medical management and follow-up. 2. Paroxysmal ventricular tachycardia I47.2 Plan Again he appears to be without ongoing acute symptoms. He will continue medical therapy and follow-up. 3. 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 He will continue his current medical therapy and follow-up. 4. Hyperlipidemia, unspecified hyperlipidemia type E78.5 Plan He will be having his lipid profile performed Orders Orders: 5. Essential hypertension I10 Plan He does have a history of hypertension. He will continue medical management and follow-up. Orders Orders: 6. Cellulitis L03.90 Plan There is concern about cellulitis of the right lower extremity. His medications will be altered. He will be placed on furosemide 40 mg a day. His potassium supplement will be increased to 40 mEq a day. He will have a follow-up BMP. Hopefully the this will help diminish his lower extremity edema which may be beneficial. In the meantime he will be placed on antibiotic therapy. He has a penicillin allergy. Thus he will be placed on medical management with azithromycin. He was told that if his lower extremity edema/erythema does not improve then he should be further evaluated by his primary care physician for ongoing concerns about the possibility of cellulitis and the need for further evaluation and care. Plan Detail Other Medications New: Additional Comments Thank you for allowing me to participate in the care of your patient. Please don't hesitate to call if any issues arise. This note was generated using a voice recognition system and there may be incorrect words, spelling or punctuation that were not noted when reviewing the office note prior to saving. Follow Up 6 Months (PFM) Coding Level of Care Code Off vis,est,level 4 Diagnoses Premature atrial beat I49.1 Paroxysmal ventricular tachycardia I47.2 Ectopic atrial tachycardia I47.1 Hyperlipidemia, unspecified hyperlipidemia type E78.5 Hyperlipidemia type: unspecified Essential hypertension I10 Cellulitis L03.90 Coding Level of Care Code Off vis,est,level 4 Diagnoses Premature atrial beat I49.1 Paroxysmal ventricular tachycardia I47.2 Ectopic atrial tachycardia I47.1 Hyperlipidemia, unspecified hyperlipidemia type E78.5 Hyperlipidemia type: unspecified Essential hypertension I10 Cellulitis L03.90 09/22/18 1710 <Electronically signed by Miguelangel Walton MD> Date Miguelangel Walton MD Cosigner Signature: Date (if applicable) CC: Zach Turner MD ERYTHROCYTE SED RATE Collected: 07/27/2018 Status: F Source: [place] 2:[place] PM [facility] [place] CODE TESTS RESULT OUT OF RANGE REFERENCE UNITS LAB L102.0000 0-20 mm/hr Normal SED RATE 5 Performed By: #### L101.9900, L100.0500 #### [facility] [address] [place], [address] CBC-COMPLETE BLOOD CNT Collected: 07/27/2018 Status: F Source: [place] NO DIFF 2:18 PM [facility] [place] CODE TESTS RESULT OUT OF RANGE REFERENCE UNITS LAB L100.1000 4.4-11.0 K/mm3 Normal WBC 7.8 LAB L100.1200 4.6-6.2 M/mm3 Low RBC 4.24 LAB L100.1300 13.0-16.5 g/dl Normal HGB 13.2 LAB L100.1400 40-54 % Low HCT 39.7 LAB L100.1500 80-94 fL Normal MCV 93.6 LAB L100.1600 27.0-32.0 pg Normal MCH 31.1 LAB L100.1700 32-36 g/gl Normal MCHC 33.2 LAB L100.1810 11.6-14.6 % Normal RDW CV 13.6 LAB L100.1820 35.1-43.9 fl High RDW SD 45.9 LAB L100.1900 150-450 K/mm3 Normal PLT 231 LAB L100.2000 6.2-12.0 fl Normal MPV 10.8 Performed By: #### L101.9900, L100.0500 #### [facility] [address] [place], [address] SERUM CREATININE AND Collected: 07/27/2018 Status: F Source: [place] GFR 2:18 PM [facility] [place] CODE TESTS RESULT OUT OF RANGE REFERENCE UNITS LAB L501.1100 0.70-1.30 mg/dL Normal 1.24 CREAT,SERUM Result Comment: The validity of the calculated GFR AND GFRAA in patients over 70 years has not been determined. Clinical correlation is essential. LAB L501.1110 >60 mL/min Normal EST GFR 60 Result Comment: Non- GFR Calc LAB L501.1115 >60 mL/min Normal EST GFR - AA 73 Result Comment: GFR Calc Performed By: #### L501.1105, L501.4100, L501.4405, L501.6710 #### [facility] [address] [place], [address] AST(SGOT) Collected: 07/27/2018 Status: F Source: [place] 2:18 PM [facility] [place] CODE TESTS RESULT OUT OF RANGE REFERENCE UNITS LAB L501.4100 15-37 U/L Normal AST 29 Performed By: #### L501.1105, L501.4100, L501.4405, L501.6710 #### [facility] [address] [place], [address] ALANINE AMINOTRANSFERAS Collected: 07/27/2018 Status: F Source: [place] (SGPT) 2:18 PM [facility] [place] CODE TESTS RESULT OUT OF RANGE REFERENCE UNITS LAB L501.4405 16-61 U/L Normal ALT 44 Performed By: #### L501.1105, L501.4100, L501.4405, L501.6710 #### [facility] [address] [place], [address] CRP Collected: 07/27/2018 Status: F Source: [place] 2:18 PM [facility] [place] CODE TESTS RESULT OUT OF RANGE REFERENCE UNITS LAB L501.6710 0.0-3.0 mg/L Normal < 2.90 C-REACTIVE PROT Result Comment: C-Reactive Protein (CRP) provides useful information for the diagnosis, therapy and monitoring of inflammatory processes and associated diseases. For the evaluation of Relative Risk for Cardiovascular Disease, a High Sensitivity CRP (HSCRP) should be ordered. Performed By: #### L501.1105, L501.4100, L501.4405, L501.6710 #### [facility] [address] [place], [place], [address] CBC-COMPLETE BLOOD CNT Collected: 05/27/2018 Status: F Source: [place] NO DIFF 9:26 AM [facility] [place] CODE TESTS RESULT OUT OF RANGE REFERENCE UNITS LAB L100.1000 4.4-11.0 K/mm3 Normal WBC 7.6 LAB L100.1200 4.6-6.2 M/mm3 Low RBC 4.35 LAB L100.1300 13.0-16.5 g/dl Normal HGB 13.6 LAB L100.1400 40-54 % Normal HCT 40.8 LAB L100.1500 80-94 fL Normal MCV 93.8 LAB L100.1600 27.0-32.0 pg Normal MCH 31.3 LAB L100.1700 32-36 g/gl Normal MCHC 33.3 LAB L100.1810 11.6-14.6 % Normal RDW CV 13.0 LAB L100.1820 35.1-43.9 fl High RDW SD 44.8 LAB L100.1900 150-450 K/mm3 Normal PLT 248 LAB L100.2000 6.2-12.0 fl Normal MPV 10.5 Performed By: #### L100.0500, L101.9900 #### [facility] [address] [place], [place], [address] ERYTHROCYTE SED RATE Collected: 05/27/2018 Status: F Source: [place] 9:26 AM [facility] [place] CODE TESTS RESULT OUT OF RANGE REFERENCE UNITS LAB L102.0000 0-20 mm/hr Normal SED RATE 10 Performed By: #### L100.0500, L101.9900 #### [facility] [address] [place], [address] PSA,TOTAL- DIAGNOSTIC Collected: 05/27/2018 Status: F Source: [place] 9:26 AM [facility] [place] CODE TESTS RESULT OUT OF RANGE REFERENCE UNITS LAB L501.9940 0.0-4.0 ng/mL PSA, Normal DIAGNOSTIC 1.13 Result Comment: This test was performed using the TPSA assay method for the [employer] chemistry system. Values obtained with different assay methods cannot be used interchangably. When changing PSA assays in the course of monitoring a patient, additional sequential testing should be carried out to confirm baseline values. Performed By: #### L501.9940 #### [facility] [address] [place], [address] SERUM CREATININE AND Collected: 05/27/2018 Status: F Source: [place] GFR 9:26 AM [facility] [place] CODE TESTS RESULT OUT OF RANGE REFERENCE UNITS LAB L501.1100 0.70-1.30 mg/dL Normal 1.15 CREAT,SERUM Result Comment: The validity of the calculated GFR AND GFRAA in patients over 70 years has not been determined. Clinical correlation is essential. LAB L501.1110 >60 mL/min Normal EST GFR 66 Result Comment: Non- GFR Calc LAB L501.1115 >60 mL/min Normal EST GFR - AA 80 Result Comment: GFR Calc Performed By: #### L501.1105, L501.4100, L501.4405, L501.6710 #### [facility] [address] [place], [address] AST(SGOT) Collected: 05/27/2018 Status: F Source: [place] 9:26 AM [facility] [place] CODE TESTS RESULT OUT OF RANGE REFERENCE UNITS LAB L501.4100 15-37 U/L Normal AST 27 Performed By: #### L501.1105, L501.4100, L501.4405, L501.6710 #### [facility] [address] [place], [address] ALANINE AMINOTRANSFERAS Collected: 05/27/2018 Status: F Source: [place] (SGPT) 9:26 AM [facility] [place] CODE TESTS RESULT OUT OF RANGE REFERENCE UNITS LAB L501.4405 16-61 U/L Normal ALT 39 Performed By: #### L501.1105, L501.4100, L501.4405, L501.6710 #### [facility] [address] [place], [address] CRP Collected: 05/27/2018 Status: F Source: [place] 9:26 AM [facility] [place] CODE TESTS RESULT OUT OF RANGE REFERENCE UNITS LAB L501.6710 0.0-3.0 mg/L Normal < 2.90 C-REACTIVE PROT Result Comment: C-Reactive Protein (CRP) provides useful information for the diagnosis, therapy and monitoring of inflammatory processes and associated diseases. For the evaluation of Relative Risk for Cardiovascular Disease, a High Sensitivity CRP (HSCRP) should be ordered. Performed By: #### L501.1105, L501.4100, L501.4405, L501.6710 #### [facility] [address] [facility] [address] [place], [address] SINUS/FACIAL BONE Observed: 05/02/2018 Status: F Source: [place] 12:57 PM [facility] [place] [facility] Imaging Services [address] [place] [address] Sinus/Facial Bone MR#: [id number] Acct: [id number] Name: YESSI GRACE Rep #: [id number] : 1945 M 72 From: Rudolph Win MD PCP: Zach Turner MD Status: REG CLI Study: Sinus/Facial Bone Date of Exam: 05/02/18 Exam# [id number] Ordering Dr: Zach Wyatt MD STUDY: CT MAXILLOFACIAL SINUSES REASON FOR EXAM: Male, 72 years old. Chronic maxillary sinusitis RADIATION DOSAGE (If Supplied By Facility): CTDIvol = ( 33.06 ) mGy, DLP = ( 928.89 ) mGycm TECHNIQUE: The patient was scanned in a multi detector CT scanner. High resolution axial imaging was performed without the administration of intravenous contrast material. Sagittal and coronal images were reconstructed. Individualized dose optimization techniques were used for this CT. COMPARISON: None. FINDINGS: The nasal septum is midline. Hypertrophic changes of the turbinates are noted. 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 Chronic inflammatory changes in the left frontal sinus,, both maxillary sinuses and the anterior ethmoid air cells. The sphenoid sinuses are clear. CT/Sinus/Facial Bone IMPRESSION: Bilateral uncinectomies. Chronic inflammatory changes in the left frontal sinus, both maxillary sinuses and the anterior ethmoid air cells Electronically Signed: Rudolph Win, at 6:46 EDT Tel , Service support , CC: Zach Wyatt MD; Zach Turner MD Chartered Wealth Manager: Signed ERYTHROCYTE SED RATE Collected: 04/13/2018 Status: F Source: [place] 9:20 AM [facility] [place] CODE TESTS RESULT OUT OF RANGE REFERENCE UNITS LAB L102.0000 0-20 mm/hr Normal SED RATE 5 Performed By: #### L101.9900, L100.0500 #### [facility] [address] [place], [place] [address] [place], [place], [id number] CBC-COMPLETE BLOOD CNT Collected: 04/13/2018 Status: F Source: [place] NO DIFF 9:20 AM [facility] [place] CODE TESTS RESULT OUT OF RANGE REFERENCE UNITS LAB L100.1000 4.4-11.0 K/mm3 Normal WBC 6.7 LAB L100.1200 4.6-6.2 M/mm3 Low RBC 4.29 LAB L100.1300 13.0-16.5 g/dl Normal HGB 13.8 LAB L100.1400 40-54 % Low HCT 39.8 LAB L100.1500 80-94 fL Normal MCV 92.8 LAB L100.1600 27.0-32.0 pg High MCH 32.2 LAB L100.1700 32-36 g/gl Normal MCHC 34.7 LAB L100.1810 11.6-14.6 % Normal RDW CV 13.8 LAB L100.1820 35.1-43.9 fl High RDW SD 45.7 LAB L100.1900 150-450 K/mm3 Normal PLT 201 LAB L100.2000 6.2-12.0 fl Normal MPV 10.8 Performed By: #### L101.9900, L100.0500 #### [facility] [address], [address] SERUM CREATININE AND Collected: 04/13/2018 Status: F Source: [place] GFR 9:20 AM [facility] [place] CODE TESTS RESULT OUT OF RANGE REFERENCE UNITS LAB L501.1100 0.70-1.30 mg/dL Normal 1.22 CREAT,SERUM Result Comment: The validity of the calculated GFR AND GFRAA in patients over 70 years has not been determined. Clinical correlation is essential. LAB L501.1110 >60 mL/min Normal EST GFR 62 Result Comment: Non- GFR Calc LAB L501.1115 >60 mL/min Normal EST GFR - AA 75 Result Comment: GFR Calc Performed By: #### L501.1105, L501.4100, L501.4405, L501.6710 #### [facility] [address] [place], [place], [address] AST(SGOT) Collected: 04/13/2018 Status: F Source: [place] 9:20 AM [facility] [place] CODE TESTS RESULT OUT OF RANGE REFERENCE UNITS LAB L501.4100 15-37 U/L Normal AST 30 Performed By: #### L501.1105, L501.4100, L501.4405, L501.6710 #### [facility] [address] [place], [address] ALANINE AMINOTRANSFERAS Collected: 04/13/2018 Status: F Source: [place] (SGPT) 9:20 AM [facility] [place] CODE TESTS RESULT OUT OF RANGE REFERENCE UNITS LAB L501.4405 16-61 U/L Normal ALT 41 Performed By: #### L501.1105, L501.4100, L501.4405, L501.6710 #### [facility] [address] [place], [address] CRP Collected: 04/13/2018 Status: F Source: [place] 9:20 AM [facility] [place] CODE TESTS RESULT OUT OF RANGE REFERENCE UNITS LAB L501.6710 0.0-3.0 mg/L Normal < 2.90 C-REACTIVE PROT Result Comment: C-Reactive Protein (CRP) provides useful information for the diagnosis, therapy and monitoring of inflammatory processes and associated diseases. For the evaluation of Relative Risk for Cardiovascular Disease, a High Sensitivity CRP (HSCRP) should be ordered. Performed By: #### L501.1105, L501.4100, L501.4405, L501.6710 #### [facility] [address] [place], [address] SERUM CREATININE AND Collected: 01/02/2018 Status: F Source: [place] GFR 9:47 AM [facility] [place] CODE TESTS RESULT OUT OF RANGE REFERENCE UNITS LAB L501.1100 0.70-1.30 mg/dL Normal 1.12 CREAT,SERUM Result Comment: The validity of the calculated GFR AND GFRAA in patients over 70 years has not been determined. Clinical correlation is essential. LAB L501.1110 >60 mL/min Normal EST GFR 68 Result Comment: Non- GFR Calc LAB L501.1115 >60 mL/min Normal EST GFR - AA 82 Result Comment: GFR Calc Performed By: #### L501.1105, L501.4100, L501.4405, L501.6710 #### [facility] [address] [place], [address] AST(SGOT) Collected: 01/02/2018 Status: F Source: [place] 9:47 AM [facility] [place] CODE TESTS RESULT OUT OF RANGE REFERENCE UNITS LAB L501.4100 15-37 U/L Normal AST 28 Performed By: #### L501.1105, L501.4100, L501.4405, L501.6710 #### [facility] [address] [place], [address] ALANINE AMINOTRANSFERAS Collected: 01/02/2018 Status: F Source: [place] (SGPT) 9:47 AM [facility] [place] CODE TESTS RESULT OUT OF RANGE REFERENCE UNITS LAB L501.4405 16-61 U/L Normal ALT 41 Result Comment: Please note revised ALT reference range effective 2017. Performed By: #### L501.1105, L501.4100, L501.4405, L501.6710 #### [facility] [address] [place], [address] CRP Collected: 01/02/2018 Status: F Source: [place] 9:47 AM [facility] [place] CODE TESTS RESULT OUT OF RANGE REFERENCE UNITS LAB L501.6710 0.0-3.0 mg/L Normal < 2.90 C-REACTIVE PROT Result Comment: C-Reactive Protein (CRP) provides useful information for the diagnosis, therapy and monitoring of inflammatory processes and associated diseases. For the evaluation of Relative Risk for Cardiovascular Disease, a High Sensitivity CRP (HSCRP) should be ordered. Performed By: #### L501.1105, L501.4100, L501.4405, L501.6710 #### [facility] [address] [facility] [place], [address] CBC-COMPLETE BLOOD CNT Collected: 01/02/2018 Status: F Source: [place] NO DIFF 9:47 AM [facility] [place] CODE TESTS RESULT OUT OF RANGE REFERENCE UNITS LAB L100.1000 4.4-11.0 K/mm3 Normal WBC 7.1 LAB L100.1200 4.6-6.2 M/mm3 Normal RBC 4.73 LAB L100.1300 13.0-16.5 g/dl Normal HGB 14.4 LAB L100.1400 40-54 % Normal HCT 43.0 LAB L100.1500 80-94 fL Normal MCV 90.9 LAB L100.1600 27.0-32.0 pg Normal MCH 30.4 LAB L100.1700 32-36 g/gl Normal MCHC 33.5 LAB L100.1810 11.6-14.6 % Normal RDW CV 13.3 LAB L100.1820 35.1-43.9 fl Normal RDW SD 43.8 LAB L100.1900 150-450 K/mm3 Normal PLT 221 LAB L100.2000 6.2-12.0 fl Normal MPV 11.2 Performed By: #### L100.0500, L101.9900 #### [facility] [address] [place], [address] ERYTHROCYTE SED RATE Collected: 01/02/2018 Status: F Source: [place] 9:47 AM [facility] [place] CODE TESTS RESULT OUT OF RANGE REFERENCE UNITS LAB L102.0000 0-20 mm/hr Normal SED RATE 2 Performed By: #### L100.0500, L101.9900 #### [facility] [address] [place], [address] ALLERGIES ALLERGIES DATE TYPE / CODE NAME / CODE REACTION SEVERITY SOURCE 09/22/2018 Drug Penicillins/ Unknown Unknown [facility] Allergy/4160 [id number]( Hospital 33884(SNOMED XNORM) Repository CT) ENCOUNTERS ENCOUNTERS ADMIT/DISCHARGE ACCOUNT NUMBER ADMITTING ENCOUNTER LOCATION SOURCE CLASS 12/02/2018 [id number] Ambulatory [facility] ding:LAB Repository 10/20/2018 [id number] [facility] ding:MEDOUTP Repository 09/30/2018 [id number] Ambulatory [facility] ding:LAB Repository 09/25/2018 [id number] Ambulatory [facility] ([place] 09/25/2018 [id number] Ambulatory [facility] ([place] 09/22/2018/09/22/20 [id number] [facility] [place] [facility] 09/21/2018 [id number] Ambulatory BMSBuilding: [place] [facility] Repository 08/25/2018 [id number] Ambulatory [facility] ding:MEDOUTP Repository 07/27/2018 [id number] Ambulatory [facility] ding:LAB Repository 06/30/2018 [id number] Ambulatory BMSBuilding: [place] [facility]MS[facility] Repository 06/30/2018 [id number] Ambulatory [facility] ding:MEDOUTP Repository 05/27/2018 [id number] Ambulatory [facility] ding:LAB.FUT Repository URE 05/22/2018 [id number] Ambulatory BuildinR [facility] ([place] Repository 05/05/2018 [id number] Ambulatory [facility] ding:MEDOUTP Repository 05/02/2018 [id number] Ambulatory [facility] ding:CT Repository 04/24/2018/04/24/20 [id number] Ambulatory BMSBuilding: [place] 18 [facility] Repository 04/13/2018 [id number] Ambulatory [facility] ding:LAB Repository 04/07/2018 [id number] Ambulatory [facility] ding:MEDOUTP Repository 03/24/2018 [id number] Ambulatory [facility] ding:MEDOUTP Repository 01/18/2018 [id number] Ambulatory [facility]inR [facility] ([place] Repository 01/17/2018 [id number] Ambulatory [facility] ding:LAB.FUT Repository URE 01/02/2018 [id number] Ambulatory [facility] ding:LAB Repository PAYERS PAYERS ENCOUNTER GUARANTOR PAYER SUBSCRIBER SOURCE 12/02/2018 YESSI Grant Primary YESSI E [place] [id number] Insurance:MEDICARE [place]OT [place]: [facility] [place], [place] A BPolicy [id number] [address]Bsr: Number: Repository [id number] () Date:2018-12-02 12/02/2018 Secondary YESSI E [place] [facility] Number: [id number] Hospital [id number] Repository Date:6059-26-29[place]DE[place] [address]WV: 12/02/2018 Tertiary NOT GIVENUNK [place] Insurance:SELF PAY [facility] Number: Effective Repository Date:2018-12-02 10/20/2018 YESSI E Primary YESSI E [place] [id number] Insurance:MEDICARE FLANAGANDOB: Community [place], PART A [facility] [id number] County Medical Center [address]Wow: Number: Repository [id number] () Date:2018-08-25 10/20/2018 Secondary YESSI E [place] Insurance:MUTUAL OF F[place]OB: [facility] Number: [id number] Hospital [id number] Repository Date:6110-16-06MYNNBE OF [place], [place] [address]OU: 10/20/2018 Tertiary NOT GIVENUNK [place] Insurance:SELF PAY [facility] Number: Effective Repository Date:2018-08-25 09/30/2018 YESSI E Primary YESSI E [place] [id number] Insurance:MEDICARE FLANAGANDOB: Community [place], PART A [facility] [id number] County Medical Center [address]Yqq: Number: Repository [id number] () Date:2018-09-30 09/30/2018 Secondary YESSI E [place] Insurance:MUTUAL OF [place]OB: [facility] Number: [id number] Hospital [id number] Repository Date:3099-74-03EHBBIB OF [place] [address]BV: 09/30/2018 Tertiary NOT GIVENUNK [place] Insurance:SELF PAY [facility] Number: Effective Repository Date:2018-09-30 09/22/2018 YESSI E Primary YESSI E [place] [id number] Insurance:MEDICARE FLANAGANDOB: Community [place], PART A [facility] [id number] County Medical Center [address]Ane: Number: Repository [id number] (HP) Date:2017-11-01 09/22/2018 Secondary YESSI E Alexandra Insurance:MUTUAL OF [place]OB: [facility] Number: [id number] [facility] [id number] Repository Date:1347-25-39WCHWJB OF [place], [place] [address]BJ: 09/22/2018 Tertiary NOT GIVENUNK [place] Insurance:SELF PAY [facility] Number: Effective Repository Date:2018-06-30 09/21/2018 YESSI E Primary YESSI E [place] [id number] Insurance:MEDICARE FLANAGANDOB: [facility], PART A [facility] [id number] [facility] [address]Qmr: Number: Repository [id number] (HP) Date:2018-09-21 09/21/2018 Secondary YESSI E Alexandra Insurance:MUTUAL OF [place]OB: [facility] Number: [id number] Hospital [id number] Repository Date:7582-97-67DAEYGH OF [place], [place] [address]SX: 09/21/2018 Tertiary NOT GIVENUNK [place] Insurance:SELF PAY [facility] Number: Effective Repository Date:2018-09-21 08/25/2018 YESSI E Primary YESSI E [place] [id number] Insurance:MEDICARE FLANAGANDOB: [facility], PART A [facility] [id number] County Medical Center [address]Fnr: Number: Repository [id number] (HP) Date:2018-06-30 08/25/2018 Secondary YESSI E [place] Insurance:MUTUAL OF [place]: [facility] Number: [id number] Hospital [id number] Repository Date:8278-45-79URGAME OF [place], [place] [address]NE: 08/25/2018 Tertiary NOT GIVENUNK [place] Insurance:SELF PAY [facility] Number: Effective Repository Date:2018-06-30 07/27/2018 YESSI E Primary YESSI E [place] [id number] Insurance:MEDICARE FLANAGANDOB[facility] [id number] County Medical Center [address]Zlm: Number: Repository [id number] (HP) Date:2018-07-27 07/27/2018 Secondary YESSI E [place] Insurance:MUTUAL OF [place]OB: [facility] Number: [id number] [place] [address] [id number] Repository Date:8713-10-62RKAGID OF [place], [place] [address]SZ: 07/27/2018 Tertiary NOT GIVENUNK [place] Insurance:SELF PAY [facility] Number: Effective Repository Date:2018-07-27 06/30/2018 YSESI E Primary YESSI E [place] [id number] Insurance:MEDICARE FLANAGANDOB: [facility], PART A [facility] [id number] [address]Dqp: Number: Repository [id number] (HP) Date:2018-06-30 06/30/2018 Secondary YESSI E Alexandra Insurance:MUTUAL OF [place]OB: [facility] Number: [id number] [place] [address] [id number] Repository Date:8922-19-98AGJEHA OF [place], [place] [address]HR: 06/30/2018 Tertiary NOT GIVENUNK [place] Insurance:SELF PAY [facility] Number: Effective Repository Date:2018-06-30 06/30/2018 YESSI E Primary YESSI E [place] [id number] Insurance:MEDICARE FLANAGANDOB: [facility], PART A [facility] [id number] [address]Ttz: Number: Repository [id number] (HP) Date:2018-05-05 06/30/2018 Secondary YESSI E [place] Insurance:MUTUAL OF [place]LA[place]OB: [facility] Number: [id number] [place] [address] [id number] Repository Date:3710-31-18CZODHXNOR[place], [place] [address]NX: 06/30/2018 Tertiary [place] GIV[place]UNK [place] Insurance:SELF PAY [facility] Number: Effective Repository Date:2018-05-05 05/27/2018 YESSI E Primary YESSI E Alexandra [id number] Insurance:MEDICARE FLANAGANDOB: [facility], PART A [address] [address]Gau: Number: Repository [id number] (HP) Date:2018-05-03 05/27/2018 Secondary YESSI E [place] Insurance:MUTUAL OF [place]OB: [facility] Number: [id number] [place] [address] [id number] Repository Date:0260-07-64FAKYRR OF [place], [place] [address]OR: 05/27/2018 Tertiary NOT GIV[place]UNK [place] Insurance:SELF PAY [facility] Number: Effective Repository Date:2018-05-03 05/05/2018 YESSI E Primary YESSI E [place] [id number] Insurance:MEDICARE FLANAGANDOB: [facility], PART A [address] [address]Obk: Number: Repository [id number] (HP) Date:2018-04-07 05/05/2018 Secondary YESSI E Alexandra Insurance:MUTUAL OF [place]OB: [facility] Number: [id number] [id number] Repository Date:1093-52-87RMXUPHNORTH LITTLE [place], [place] [address]DI: 05/05/2018 Tertiary NOT GIVENUNK [place] Insurance:SELF PAY [facility] Number: Effective Repository Date:2018-04-07 05/02/2018 YESSI E Primary YESSI E [place] [id number] Insurance:MEDICARE FLANAGANDOB: [facility], PART A [address] [address]Vvv: Number: Repository [id number] (HP) Date:2018-04-21 05/02/2018 Secondary YESSI E [place] Insurance:MUTUAL OF [place]: [facility] Number: [id number] Hospital [id number] Repository Date:8971-74-56QEQGUU OF [place], [place] [address]UC: 05/02/2018 Tertiary NOT GIVENUNK [place] Insurance:SELF PAY [facility] Number: Effective Repository Date:2018-04-21 04/24/2018 YESSI E Primary YESSI E [place] [id number] Insurance:MEDICARE FLANAGANDOB: [facility] [place], [place] [facility] [id number] County Medical Center [address]Xfy: Number: Repository [id number] (HP) Date:2017-11-02 04/24/2018 Secondary YESSI E [place] Insurance:MUTUAL OF [place]OB: [facility] Number: [id number] Hospital [id number] Repository Date:6463-39-33ZXIKLW OF [place], [place] [address]IG: 04/24/2018 Tertiary NOT GIVENUNK [place] Insurance:SELF PAY [facility] Number: Effective Repository Date:2018-04-14 04/13/2018 YESSI E Primary YESSI E [place] [id number] Insurance:MEDICARE FLANAGANDOB[facility] [id number] County Medical Center [address]Vof: Number: Repository [id number] (HP) Date:2018-04-13 04/13/2018 Secondary YESSI E [place] Insurance:MUTUAL OF [place]OB: [facility] Number: [id number] Hospital [id number] Repository Date:0939-46-44WYJEPG OF [place], [place] [address]DO: 04/13/2018 Tertiary NOT GIVENUNK [place] Insurance:SELF PAY [facility] Number: Effective Repository Date:2018-04-13 04/07/2018 YESSI E Primary YESSI E Alexandra [id number] Insurance:MEDICARE FLANAGANDOB: [facility], PART A [facility] [id number] County Medical Center [address]Whv: Number: Repository [id number] (HP) Date:2018-03-24 04/07/2018 Secondary YESSI E [place] Insurance:MUTUAL OF FLANA[place]OB: [facility] Number: [id number] Hospital [id number] Repository Date:2506-10-11KBKCXJNORTH [place]ITTLE [place], [place] [address]MP: 04/07/2018 Tertiary NOT GIVENUNK [place] Insurance:SELF PAY [facility] Number: Effective Repository Date:2018-03-24 03/24/2018 YESSI E Primary YESSI E [place] [id number] Insurance:MEDICARE FLANAGANDOB: [facility], PART A [facility] [id number] [address]Oup: Number: Repository [id number] (HP) Date:2018-03-21 03/24/2018 Secondary YESSI E [place] Insurance:MUTUAL OF [place]OB: [facility] Number: [id number] [place] [address] [id number] Repository Date:5554-51-05FNTOGL OF [place], [place] [address]SB: 03/24/2018 Tertiary NOT GIV[place]UNK [place] Insurance:SELF PAY [facility] Number: Effective Repository Date:2018-03-21 01/17/2018 YESSI E Primary YESSI E Alexandra [id number] Insurance:MEDICARE FLANAGANDOB: [facility], PART A [place] [id number] County Medical Center [address]Zqk: Number: Repository [id number] (HP) Date:2018-01-17 01/17/2018 Secondary YESSI E Alex[place] Insurance:MUTUAL OF FLANAG[place]OB: [facility] Number: [id number] Hospital [id number] Repository Date:6841-80-37YRAKKUNORTH [place], [place] [address]OX: 01/17/2018 Tertiary NOT GIVENUNK [place] Insurance:SELF PAY [facility] Number: Effective Repository Date:2018-01-17 01/02/2018 YESSI E Primary YESSI [place] [id number] Insurance:MEDICARE FLANAGANDOB: [facility] BPolicy [id number] [place] [address]Vzu: Number: Repository [id number] () Date:2018-01-02 01/02/2018 Secondary YESSI [place] Insurance:[facility]: [facility] Number: [id number] Hospital [id number] Repository Date:1242-95-50QBVSOYNORTH [place]ITTLE [place], [place] [address]CJ: 01/02/2018 Tertiary NOT GIVENUNK [place] Insurance:SELF PAY [facility] Number: Effective Repository Date:2018-01-02
== END ==
PROVIDERS: Family Provider Family Medicine; PCP Family Medicine; Referring Provider Internal Medicine Rheumatology; Visit Provider Internal Medicine Rheumatology
DX: L40.50 Arthropathic psoriasis, unspecified (principal); R94.4 Abnormal results of kidney function studies; M17.0 Bilateral primary osteoarthritis of knee; M50.90 Cervical disc disorder, unspecified, unspecified cervical region; L40.52 Psoriatic arthritis mutilans; L40.3 Pustulosis palmaris et plantaris; L30.9 Dermatitis, unspecified; L40.9 Psoriasis, unspecified; Z79.1 Long term (current) use of non-steroidal anti-inflammatories (NSAID); Z79.899 Other long term (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
CPT/HCPCS: 36415; 82565; 84450; 84460; 85025; 85652; 86140

== ENCOUNTER → 2018-12-15 10:09 | Outpatient (CLI) | payer MEDICARE, OTHER, SELFPAY ==
[2018-10-20 10:58] VITALS: BMI 31.5
[2018-12-15 10:30] VITALS: BP 162/81; PULSE 55; RESP 18; TEMP 35.9; O2SAT 100; BMI 32.0
[2018-12-15] MEDS: DiphenhydrAMINE 50 MG/ML Syringe 12.5 MG IV (10:41)
[2018-12-15 13:29] VITALS: BP 150/61; PULSE 57; TEMP 36.3
== END ==
PROVIDERS: Family Provider Family Medicine; PCP Family Medicine; Referring Provider Internal Medicine Rheumatology; Visit Provider Internal Medicine Rheumatology
DX: L40.50 Arthropathic psoriasis, unspecified (principal); M17.0 Bilateral primary osteoarthritis of knee; M50.90 Cervical disc disorder, unspecified, unspecified cervical region; L40.52 Psoriatic arthritis mutilans; L40.3 Pustulosis palmaris et plantaris; L40.9 Psoriasis, unspecified; Z79.899 Other long term (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
CPT/HCPCS: 96365; 96366; 96375; J7050; A4216; Q5103

== ENCOUNTER → 2019-01-22 16:22 | Outpatient (CLI) | payer MEDICARE, OTHER, SELFPAY ==
[2018-12-15 10:30] VITALS: BMI 32.0
--- NOTE | 2019-01-22 16:28 | RAD_ITS ---
STUDY: X-RAY RIGHT FOOT, FIRST TOE REASON FOR EXAM: Male, 73 years old. Ulcer TECHNIQUE: 3 view(s) of the toe were obtained. COMPARISON: None. FINDINGS: Metatarsophalangeal and interphalangeal osteoarthritis. No fractures or erosive lesions are seen. Distal soft tissue ulceration. No radiographic evidence of osteomyelitis. RAD/Toe(s) Min 2 Views IMPRESSION: No radiographic evidence of osteomyelitis. Electronically Signed: Gerard Valiente MD at 15:50 EDT Tel , Service support ,
== END ==
PROVIDERS: Family Provider Family Medicine; PCP Family Medicine; Referring Provider Family Medicine; Visit Provider Family Medicine
DX: L97.519 Non-pressure chronic ulcer of other part of right foot with unspecified severity (principal)
CPT/HCPCS: 73660

== ENCOUNTER → 2019-02-09 10:22 | Outpatient (CLI) | payer MEDICARE, OTHER, SELFPAY ==
[2018-12-15 10:30] VITALS: BMI 32.0
[2019-02-09 10:35] VITALS: BP 133/64; PULSE 51; RESP 16; TEMP 36.8; O2SAT 99; BMI 32.3
[2019-02-09] MEDS: DiphenhydrAMINE 50 MG/ML Syringe 12.5 MG IV (11:20)
[2019-02-09 11:29] LABS: Absolute Lymphocyte Count 1.25 X10^3/ul (0.83-4.51); Absolute Neutrophil Count 3.5 X10^3/uL (2.0-7.7); Basophil# 0.01 X10^3/uL; Basophil% 0.2 % (0-1); Eosinophils% 7.1 % (0-5); Hematocrit 40.7 % (40-54); Lymphocyte # 1.25 X10^3/ul (4.0); Lymphocyte % 22.3 % (19-41); Mean Corp Hgb Conc 34.4 g/gl (32-36); Mean Corpuscular Hgb 31.9 pg (27.0-32.0); Mean Corpuscular Volume 92.7 fL (80-94); Mean Platelet Vol. 10.5 fl (6.2-12.0); Monocyte# 0.44 X10^3/uL; Monocyte% 7.8 % (0-10); Neutrophil # 3.51 X10^3/uL (2.7-7.7); Neutrophil % 62.6 % (47-70); Platelet Count 212 K/mm3 (150-450); RBC Distribution Width CV 13.1 % (11.6-14.6); RBC Distribution Width SD 43.8 fl (35.1-43.9); Red Blood Count 4.39 M/mm3 (4.6-6.2); White Blood Count 5.6 K/mm3 (4.4-11.0)
[2019-02-09 11:30] LABS: POSITIVE COUNT NO; POSITIVE DIFFERENTIAL NO; POSITIVE MORPHOLOGY NO
[2019-02-09 11:31] LABS: Erythrocyte Sedimentation Rate 17 mm/hr (0-20)
[2019-02-09 11:48] LABS: AST(SGOT) 40 U/L (15-37); Alanine Aminotransfer ALT/SGPT 43 U/L (16-61); CRP 4.01 mg/L (0.0-3.0); Creatinine, Serum 1.23 mg/dL (0.70-1.30); EST Glomerular Filtration Rate 61 mL/min (>60); Est Glom Filt Rate - Afr Amer 74 mL/min (>60); Estimated Creatinine Clearance 56.96 ml/min
== END ==
PROVIDERS: Family Provider Family Medicine; PCP Family Medicine; Referring Provider Internal Medicine Rheumatology; Visit Provider Internal Medicine Rheumatology
DX: L40.50 Arthropathic psoriasis, unspecified (principal); L40.52 Psoriatic arthritis mutilans; L40.3 Pustulosis palmaris et plantaris; L40.9 Psoriasis, unspecified; M17.0 Bilateral primary osteoarthritis of knee; M50.90 Cervical disc disorder, unspecified, unspecified cervical region; R94.4 Abnormal results of kidney function studies; E11.621 Type 2 diabetes mellitus with foot ulcer; L97.519 Non-pressure chronic ulcer of other part of right foot with unspecified severity; L30.9 Dermatitis, unspecified; Z79.1 Long term (current) use of non-steroidal anti-inflammatories (NSAID); Z79.899 Other long term (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
CPT/HCPCS: 96365; 96366; 96375; 36415; 82565; 84450; 84460; 85025; 85652; 86140; J7050; A4216; Q5103

== ENCOUNTER → 2019-03-31 | Outpatient (CLI) | payer MEDICARE, OTHER, SELFPAY ==
[2019-02-09 10:35] VITALS: BMI 32.3
[2019-03-31 09:18] LABS: Erythrocyte Sedimentation Rate 13 mm/hr (0-20)
[2019-03-31 09:21] LABS: Hematocrit 39.7 % (40-54); Hemoglobin 13.3 g/dl (13.0-16.5); Mean Corp Hgb Conc 33.5 g/gl (32-36); Mean Corpuscular Hgb 30.2 pg (27.0-32.0); Mean Platelet Vol. 9.9 fl (6.2-12.0); Platelet Count 371 K/mm3 (150-450); RBC Distribution Width CV 12.8 % (11.6-14.6); Red Blood Count 4.41 M/mm3 (4.6-6.2); White Blood Count 6.9 K/mm3 (4.4-11.0)
[2019-03-31 09:22] LABS: Scan Indicated on CBC? Y/N NO
[2019-03-31 09:43] LABS: AST(SGOT) 39 U/L (15-37); Alanine Aminotransfer ALT/SGPT 50 U/L (16-61); Creatinine, Serum 1.37 mg/dL (0.70-1.30); EST Glomerular Filtration Rate 54 mL/min (>60); Est Glom Filt Rate - Afr Amer 65 mL/min (>60)
== END | disposition home or self-care (01) ==
LOC: LAB 08:45
PROVIDERS: Family Provider Family Medicine; PCP Family Medicine; Referring Provider Internal Medicine Rheumatology; Visit Provider Internal Medicine Rheumatology
DX: Z79.899 Other long term (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 (principal)
CPT/HCPCS: 36415; 82565; 84450; 84460; 85027; 85652; 86140

== ENCOUNTER → 2019-04-16 | Outpatient (CLI) | payer MEDICARE, OTHER, SELFPAY ==
[2019-02-09 10:35] VITALS: BMI 32.3
[2019-04-16 14:54] LABS: Erythrocyte Sedimentation Rate 17 mm/hr (0-20)
[2019-04-16 14:58] LABS: Absolute Lymphocyte Count 1.37 X10^3/ul (0.83-4.51); Absolute Neutrophil Count 3.2 X10^3/uL (2.0-7.7); Basophil# 0.02 X10^3/uL; Basophil% 0.4 % (0-1); Eosinophil# 0.54 X10^3/uL; Eosinophils% 9.5 % (0-5); Hematocrit 39.1 % (40-54); Hemoglobin 12.9 g/dl (13.0-16.5); Lymphocyte # 1.37 X10^3/ul (4.0); Mean Corpuscular Hgb 29.5 pg (27.0-32.0); Mean Corpuscular Volume 89.5 fL (80-94); Mean Platelet Vol. 10.1 fl (6.2-12.0); Monocyte# 0.53 X10^3/uL; Monocyte% 9.3 % (0-10); Neutrophil # 3.23 X10^3/uL (2.7-7.7); Neutrophil % 56.6 % (47-70); Platelet Count 349 K/mm3 (150-450); RBC Distribution Width CV 13.4 % (11.6-14.6); Red Blood Count 4.37 M/mm3 (4.6-6.2); White Blood Count 5.7 K/mm3 (4.4-11.0)
[2019-04-16 15:00] LABS: POSITIVE COUNT NO; POSITIVE DIFFERENTIAL NO; POSITIVE MORPHOLOGY NO
[2019-04-16 15:23] LABS: Hemoglobin A1c 7.2 % (4.2-6.3)
[2019-04-16 15:25] LABS: ALB/GLOB Ratio 0.7 RATIO (0.9-2.4); AST(SGOT) 42 U/L (15-37); Alanine Aminotransfer ALT/SGPT 41 U/L (16-61); Albumin, Serum 3.3 g/dL (3.2-5.0); Alkaline Phosphatase 103 U/L (45-117); Anion Gap 8 (5-15); BUN 21 mg/dL (7-18); BUN/Creat Ratio 14.6 RATIO (10-20); Calcium,Total 9.3 mg/dL (8.5-10.1); Chloride 105 mmol/L (98-107); Creatinine, Serum 1.44 mg/dL (0.70-1.30); EST Glomerular Filtration Rate 51 mL/min (>60); Est Glom Filt Rate - Afr Amer 61 mL/min (>60); Globulin 4.7 g/dL (2.2-4.2); Glucose 108 mg/dL (74-106); Potassium 4.4 mmol/L (3.5-5.1); Sodium Level 140 mmol/L (136-145)
== END | disposition home or self-care (01) ==
LOC: LAB 13:32
PROVIDERS: Family Provider Family Medicine; PCP Family Medicine; Referring Provider Podiatrist; Visit Provider Podiatrist
DX: E11.621 Type 2 diabetes mellitus with foot ulcer (principal); L97.529 Non-pressure chronic ulcer of other part of left foot with unspecified severity; L08.9 Local infection of the skin and subcutaneous tissue, unspecified
CPT/HCPCS: 36415; 80053; 83036; 85025; 85652; 86140

== ENCOUNTER → 2019-06-01 | Outpatient (CLI) | payer MEDICARE, OTHER, SELFPAY ==
[2019-02-09 10:35] VITALS: BMI 32.3
[2019-06-01 13:25] LABS: PSA,Total- Diagnostic 0.96 ng/mL (0.0-4.0)
== END | disposition home or self-care (01) ==
LOC: LAB 11:54
PROVIDERS: Family Provider Family Medicine; PCP Family Medicine; Referring Provider Urology; Visit Provider Urology
DX: C61 Malignant neoplasm of prostate (principal)
CPT/HCPCS: 36415; 84153

== ENCOUNTER → 2019-06-22 11:02 | Outpatient (CLI) | payer MEDICARE, OTHER, SELFPAY ==
[2019-06-01 15:07] VITALS: BMI 30.7
[2019-06-22 11:11] VITALS: BP 152/81; PULSE 53; RESP 16; TEMP 36.3; O2SAT 99; BMI 29.9
[2019-06-22] MEDS: DiphenhydrAMINE 50 MG/ML Syringe 12.5 MG IV (11:22)
[2019-06-22 12:11] VITALS: BP 135/69; PULSE 54; RESP 16; TEMP 36.3; O2SAT 99
[2019-06-22 12:42] VITALS: BP 162/71; PULSE 54; RESP 16; TEMP 36.5; O2SAT 98
[2019-06-22 12:43] VITALS: BP 151/65; PULSE 57; RESP 16; TEMP 36.4
[2019-06-22 13:01] VITALS: BP 142/70; PULSE 66; RESP 16; O2SAT 93
[2019-06-22 14:00] VITALS: BP 147/66; PULSE 60; RESP 16
== END ==
PROVIDERS: Family Provider Family Medicine; PCP Family Medicine; Referring Provider Internal Medicine Rheumatology; Visit Provider Internal Medicine Rheumatology
DX: L40.50 Arthropathic psoriasis, unspecified (principal); M17.0 Bilateral primary osteoarthritis of knee; M50.90 Cervical disc disorder, unspecified, unspecified cervical region; L40.52 Psoriatic arthritis mutilans; L40.3 Pustulosis palmaris et plantaris; L40.9 Psoriasis, unspecified; Z79.899 Other long term (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
CPT/HCPCS: 96365; 96366 ×3; J7050; A4216; Q5103

== ENCOUNTER → 2019-07-26 | Outpatient (CLI) | payer MEDICARE, OTHER, SELFPAY ==
[2019-06-22 11:11] VITALS: BMI 29.9
[2019-07-26 09:49] LABS: Erythrocyte Sedimentation Rate 12 mm/hr (0-20)
[2019-07-26 09:53] LABS: Absolute Lymphocyte Count 1.42 X10^3/uL (0.83-4.51); Absolute Neutrophil Count 2.9 X10^3/uL (2.0-7.7); Basophil# 0.03 X10^3/uL; Basophil% 0.6 % (0-1); Eosinophil# 0.46 X10^3/uL; Eosinophils% 8.6 % (0-5); Hematocrit 42.4 % (40-54); Lymphocyte # 1.42 X10^3/ul (4.0); Lymphocyte % 26.4 % (19-41); Mean Platelet Vol. 11.1 fl (6.2-12.0); Monocyte# 0.54 X10^3/uL; NRBC Flagged by Analyzer 0 % (0-5); Neutrophil # 2.91 X10^3/uL (2.7-7.7); Platelet Count 215 K/mm3 (150-450); RBC Distribution Width CV 13.3 % (11.6-14.6); RBC Distribution Width SD 43.4 fl (35.1-43.9); Red Blood Count 4.66 M/mm3 (4.6-6.2); White Blood Count 5.4 K/mm3 (4.4-11.0)
[2019-07-26 10:29] LABS: AST(SGOT) 33 U/L (15-37); Alanine Aminotransfer ALT/SGPT 46 U/L (16-61); CRP < 2.90 mg/L (0.0-3.0); Creatinine, Serum 1.21 mg/dL (0.70-1.30); EST Glomerular Filtration Rate 62 mL/min (>60); Est Glom Filt Rate - Afr Amer 75 mL/min (>60)
== END | disposition home or self-care (01) ==
PROVIDERS: Family Provider Family Medicine; PCP Family Medicine; Referring Provider Internal Medicine Rheumatology; Visit Provider Internal Medicine Rheumatology
DX: L40.50 Arthropathic psoriasis, unspecified (principal); L30.9 Dermatitis, unspecified; R94.4 Abnormal results of kidney function studies; M17.0 Bilateral primary osteoarthritis of knee; M50.90 Cervical disc disorder, unspecified, unspecified cervical region; L40.52 Psoriatic arthritis mutilans; L40.9 Psoriasis, unspecified; Z79.1 Long term (current) use of non-steroidal anti-inflammatories (NSAID); Z79.899 Other long term (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
CPT/HCPCS: 36415; 82565; 84450; 84460; 85025; 85652; 86140

== ENCOUNTER → 2019-08-17 | Outpatient (CLI) | payer MEDICARE, OTHER, SELFPAY ==
[2019-06-22 11:11] VITALS: BMI 29.9
[2019-08-17] VITALS (7 sets, daily range): BP systolic 124–144; BP diastolic 70–83; PULSE 58–71; RESP 15–18; TEMP 35.9–37.2; O2SAT 96–99; BMI 30.3
[2019-08-17] MEDS: DiphenhydrAMINE 50 MG/ML Syringe 12.5 MG IV (11:16)
== END | disposition home or self-care (01) ==
LOC: MEDOUTP 10:54
PROVIDERS: Family Provider Family Medicine; PCP Family Medicine; Referring Provider Internal Medicine Rheumatology; Visit Provider Internal Medicine Rheumatology
DX: L40.52 Psoriatic arthritis mutilans (principal); L40.9 Psoriasis, unspecified; L40.50 Arthropathic psoriasis, unspecified; M50.90 Cervical disc disorder, unspecified, unspecified cervical region; M17.0 Bilateral primary osteoarthritis of knee; Z79.899 Other long term (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
CPT/HCPCS: 96365; 96366; 96375; J7050; A4216; Q5103

== ENCOUNTER → 2019-10-12 10:57 | Outpatient (CLI) | payer MEDICARE, OTHER, SELFPAY ==
[2019-08-17 11:06] VITALS: BMI 30.3
[2019-10-12 11:23] VITALS: BP 138/63; PULSE 64; RESP 16; TEMP 36.6; O2SAT 96
[2019-10-12] MEDS: DiphenhydrAMINE 50 MG/ML Syringe 12.5 MG IV (11:42)
[2019-10-12 12:21] VITALS: BP 140/58; PULSE 58; RESP 16; TEMP 36.3
[2019-10-12 12:40] VITALS: BP 123/59; PULSE 59; RESP 16; TEMP 36.3; O2SAT 96
[2019-10-12 12:54] VITALS: BP 138/66; PULSE 70; RESP 16; TEMP 36.5
[2019-10-12 13:10] VITALS: BP 136/90; PULSE 73; RESP 16; TEMP 36.3
[2019-10-12 14:42] VITALS: BP 125/59; PULSE 63; RESP 16; TEMP 36.2; O2SAT 96
== END ==
PROVIDERS: Family Provider Family Medicine; PCP Family Medicine; Referring Provider Family Medicine; Visit Provider Family Medicine
DX: L40.52 Psoriatic arthritis mutilans (principal); L40.9 Psoriasis, unspecified; L40.50 Arthropathic psoriasis, unspecified; M50.90 Cervical disc disorder, unspecified, unspecified cervical region; M17.0 Bilateral primary osteoarthritis of knee; Z79.899 Other long term (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
CPT/HCPCS: 96365; 96366; 96375; J7050; A4216; Q5103

== ENCOUNTER → 2019-12-07 10:26 | Outpatient (CLI) | payer MEDICARE, OTHER, SELFPAY ==
[2019-08-17 11:06] VITALS: BMI 30.3
[2019-12-07 10:54] VITALS: BP 136/64; PULSE 60; RESP 18; TEMP 36.8; O2SAT 99; BMI 31.1
[2019-12-07] MEDS: DiphenhydrAMINE 50 MG/ML Syringe 12.5 MG IV (11:12)
[2019-12-07 12:10] VITALS: BP 159/67; PULSE 57; RESP 18; TEMP 36.6; O2SAT 99
[2019-12-07 12:26] VITALS: BP 154/90; PULSE 60; RESP 18; TEMP 36.6
[2019-12-07 12:42] VITALS: BP 140/86; PULSE 65; RESP 18; TEMP 36.6
[2019-12-07 12:57] VITALS: BP 144/64; PULSE 72; RESP 16; TEMP 36.6
[2019-12-07 14:34] VITALS: BP 150/62; PULSE 82; RESP 16; TEMP 36.7
== END ==
PROVIDERS: Family Provider Family Medicine; PCP Family Medicine; Referring Provider Family Medicine; Visit Provider Family Medicine
DX: L40.52 Psoriatic arthritis mutilans (principal); M50.90 Cervical disc disorder, unspecified, unspecified cervical region; M17.0 Bilateral primary osteoarthritis of knee; Z79.899 Other long term (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
CPT/HCPCS: 96375; 96413; 96415; J7050; A4216; Q5103

== ENCOUNTER → 2020-01-28 | Outpatient (CLI) | payer MEDICARE, OTHER, SELFPAY ==
[2019-12-07 10:54] VITALS: BMI 31.1
[2020-01-28 12:58] LABS: Erythrocyte Sedimentation Rate 2 mm/hr (0-20)
[2020-01-28 13:01] LABS: Absolute Lymphocyte Count 1.76 X10^3/uL (0.83-4.51); Absolute Neutrophil Count 3.9 X10^3/uL (2.0-7.7); Basophil# 0.06 X10^3/uL; Basophil% 0.8 % (0-1); Eosinophil# 0.73 X10^3/uL; Eosinophils% 10.2 % (0-5); Hemoglobin 14.4 g/dL (13.0-16.5); Lymphocyte # 1.76 X10^3/ul (4.0); Lymphocyte % 24.7 % (19-41); Mean Corp Hgb Conc 33.5 g/dL (32-36); Mean Corpuscular Hgb 31.8 pg (27.0-32.0); Mean Corpuscular Volume 94.9 fL (80-94); Mean Platelet Vol. 10.7 fl (6.2-12.0); Monocyte# 0.68 X10^3/uL; Monocyte% 9.5 % (0-10); NRBC Flagged by Analyzer 0 % (0-5); Neutrophil # 3.88 X10^3/uL (2.7-7.7); Neutrophil % 54.5 % (47-70); Platelet Count 239 K/mm3 (150-450); RBC Distribution Width CV 12.8 % (11.6-14.6); RBC Distribution Width SD 43.6 fl (35.1-43.9); Red Blood Count 4.53 M/mm3 (4.6-6.2); White Blood Count 7.1 K/mm3 (4.4-11.0)
[2020-01-28 16:37] LABS: AST(SGOT) 33 U/L (15-37); Alanine Aminotransfer ALT/SGPT 53 U/L (16-61); CRP < 2.90 mg/L (0.0-3.0); Creatinine, Serum 1.27 mg/dL (0.70-1.30); EST Glomerular Filtration Rate 59 mL/min (>60); Est Glom Filt Rate - Afr Amer 71 mL/min (>60)
== END | disposition home or self-care (01) ==
PROVIDERS: PCP Family Medicine; Referring Provider Internal Medicine Rheumatology; Visit Provider Internal Medicine Rheumatology
DX: L40.50 Arthropathic psoriasis, unspecified (principal); L40.52 Psoriatic arthritis mutilans; L40.3 Pustulosis palmaris et plantaris; L85.3 Xerosis cutis; L21.9 Seborrheic dermatitis, unspecified; L30.9 Dermatitis, unspecified; M50.90 Cervical disc disorder, unspecified, unspecified cervical region; M17.0 Bilateral primary osteoarthritis of knee; L40.9 Psoriasis, unspecified; Z79.1 Long term (current) use of non-steroidal anti-inflammatories (NSAID); Z79.899 Other long term (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
CPT/HCPCS: 36415; 82565; 84450; 84460; 85025; 85652; 86140

== ENCOUNTER → 2020-02-01 | Outpatient (CLI) | payer MEDICARE, OTHER, SELFPAY ==
[2019-12-07 10:54] VITALS: BMI 31.1
[2020-02-01 10:39] VITALS: BP 152/70; PULSE 59; RESP 16; TEMP 36.7; O2SAT 97; BMI 31.3
[2020-02-01] MEDS: 0.9% NaCl IVPB Med Flush (250 mL) 15 ML IV (10:57)
[2020-02-01] MEDS: DiphenhydrAMINE 50 MG/ML Syringe 12.5 MG IV (10:58)
[2020-02-01] MEDS: 0.9% NaCl Peripheral Flush Adult/Peds IV (10:58)
== END | disposition home or self-care (01) ==
LOC: MEDOUTP 10:26
PROVIDERS: PCP Family Medicine; Referring Provider Family Medicine; Visit Provider Family Medicine
DX: L40.52 Psoriatic arthritis mutilans (principal); M50.90 Cervical disc disorder, unspecified, unspecified cervical region; L40.9 Psoriasis, unspecified; Z79.899 Other long term (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
CPT/HCPCS: 96375; 96365; 96366; J7050; A4216; Q5103

== ENCOUNTER → 2020-03-20 | Outpatient (CLI) | payer MEDICARE, OTHER, SELFPAY ==
[2020-02-20 11:30] VITALS: BMI 31.1
[2020-03-20 11:25] LABS: Absolute Lymphocyte Count 1.24 X10^3/uL (0.83-4.51); Absolute Neutrophil Count 4.4 X10^3/uL (2.0-7.7); Basophil# 0.05 X10^3/uL; Basophil% 0.7 % (0-1); Eosinophil# 0.71 X10^3/uL; Eosinophils% 9.8 % (0-5); Hematocrit 42.5 % (40-54); Hemoglobin 14.4 g/dL (13.0-16.5); Lymphocyte # 1.24 X10^3/ul (4.0); Lymphocyte % 17.1 % (19-41); Mean Corp Hgb Conc 33.9 g/dL (32-36); Mean Corpuscular Hgb 31.2 pg (27.0-32.0); Mean Corpuscular Volume 92.2 fL (80-94); Mean Platelet Vol. 10.2 fl (6.2-12.0); Monocyte# 0.86 X10^3/uL; Monocyte% 11.9 % (0-10); NRBC Flagged by Analyzer 0 % (0-5); Neutrophil # 4.36 X10^3/uL (2.7-7.7); Neutrophil % 60.2 % (47-70); Platelet Count 272 K/mm3 (150-450); RBC Distribution Width CV 13.6 % (11.6-14.6); RBC Distribution Width SD 45.3 fl (35.1-43.9); Red Blood Count 4.61 M/mm3 (4.6-6.2); White Blood Count 7.2 K/mm3 (4.4-11.0)
[2020-03-20 12:01] LABS: Erythrocyte Sedimentation Rate 17 mm/hr (0-20)
[2020-03-20 12:06] LABS: AST(SGOT) 27 U/L (15-37); Alanine Aminotransfer ALT/SGPT 49 U/L (16-61); CRP 3.06 mg/L (0.0-3.0); Creatinine, Serum 1.28 mg/dL (0.70-1.30); EST Glomerular Filtration Rate 58 mL/min (>60); Est Glom Filt Rate - Afr Amer 70 mL/min (>60)
[2020-03-20 12:19] LABS: AST(SGOT) 29 U/L (15-37); Alanine Aminotransfer ALT/SGPT 47 U/L (16-61); Albumin, Serum 3.8 g/dL (3.2-5.0); Alkaline Phosphatase 75 U/L (45-117); Cholesterol 158 mg/dL (200); Globulin 3.8 g/dL (2.2-4.2); High Density Lipoprotein 37 mg/dL; Protein, Total 7.6 g/dL (6.4-8.2); Triglycerides 127 mg/dL; Very Low Density Lipoprotein 25 mg/dL (5-40)
== END | disposition home or self-care (01) ==
PROVIDERS: Internal Medicine Rheumatology; Urology; PCP Family Medicine; Referring Provider Internal Medicine Cardiovascular Disease; Visit Provider Internal Medicine Cardiovascular Disease
DX: L40.50 Arthropathic psoriasis, unspecified (principal); L40.52 Psoriatic arthritis mutilans; E78.00 Pure hypercholesterolemia, unspecified; C61 Malignant neoplasm of prostate; L40.3 Pustulosis palmaris et plantaris; L85.3 Xerosis cutis; L21.9 Seborrheic dermatitis, unspecified; L30.9 Dermatitis, unspecified; M50.90 Cervical disc disorder, unspecified, unspecified cervical region; M17.0 Bilateral primary osteoarthritis of knee; L40.9 Psoriasis, unspecified; Z79.1 Long term (current) use of non-steroidal anti-inflammatories (NSAID); Z79.899 Other long term (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
CPT/HCPCS: 36415; 80061; 80076; 82565; 84153; 84450; 84460; 85025; 85652; 86140

== ENCOUNTER → 2020-04-21 14:07 | Outpatient (CLI) | payer MEDICARE, OTHER, SELFPAY ==
[2020-02-20 11:30] VITALS: BMI 31.1
[2020-04-21 17:47] LABS: Absolute Lymphocyte Count 1.63 X10^3/uL (0.83-4.51); Absolute Neutrophil Count 4.1 X10^3/uL (2.0-7.7); Basophil# 0.05 X10^3/uL; Basophil% 0.7 % (0-1); Eosinophil# 0.67 X10^3/uL; Eosinophils% 9.5 % (0-5); Hematocrit 40.9 % (40-54); Hemoglobin 13.2 g/dL (13.0-16.5); Lymphocyte # 1.63 X10^3/ul (4.0); Mean Corp Hgb Conc 32.3 g/dL (32-36); Mean Corpuscular Hgb 30.9 pg (27.0-32.0); Mean Corpuscular Volume 95.8 fL (80-94); Mean Platelet Vol. 10.9 fl (6.2-12.0); Monocyte# 0.64 X10^3/uL; NRBC Flagged by Analyzer 0 % (0-5); Neutrophil # 4.06 X10^3/uL (2.7-7.7); Neutrophil % 57.4 % (47-70); Platelet Count 371 K/mm3 (150-450); RBC Distribution Width CV 13.3 % (11.6-14.6); RBC Distribution Width SD 45.6 fl (35.1-43.9); Red Blood Count 4.27 M/mm3 (4.6-6.2); White Blood Count 7.1 K/mm3 (4.4-11.0)
[2020-04-21 18:04] LABS: ALB/GLOB Ratio 0.8 RATIO (0.9-2.4); AST(SGOT) 31 U/L (15-37); Alanine Aminotransfer ALT/SGPT 47 U/L (16-61); Albumin, Serum 3.6 g/dL (3.2-5.0); Alkaline Phosphatase 94 U/L (45-117); Anion Gap 7 (5-15); BUN 23 mg/dL (7-18); BUN/Creat Ratio 20.4 RATIO (10-20); CRP < 2.90 mg/L (0.0-3.0); Calcium,Total 9.8 mg/dL (8.5-10.1); Chloride 105 mmol/L (98-107); Creatinine, Serum 1.13 mg/dL (0.70-1.30); EST Glomerular Filtration Rate 67 mL/min (>60); Est Glom Filt Rate - Afr Amer 81 mL/min (>60); Globulin 4.4 g/dL (2.2-4.2); Glucose 118 mg/dL (74-106); Potassium 4.3 mmol/L (3.5-5.1); Sodium Level 138 mmol/L (136-145)
[2020-04-21 18:06] LABS: Erythrocyte Sedimentation Rate 33 mm/hr (0-20)
== END ==
PROVIDERS: PCP Family Medicine; Referring Provider Family Medicine; Visit Provider Family Medicine
DX: E11.621 Type 2 diabetes mellitus with foot ulcer (principal)
CPT/HCPCS: 36415; 80053; 85025; 85652; 86140

== ENCOUNTER → 2020-04-25 | Outpatient (CLI) | payer MEDICARE, OTHER, SELFPAY ==
[2019-12-07 10:54] VITALS: BMI 31.1
[2020-04-24 09:17] VITALS: BMI 31.1
[2020-04-25 11:06] VITALS: BP 123/72; PULSE 97; RESP 16; TEMP 36.2; O2SAT 97; BMI 30.2
[2020-04-25] MEDS: 0.9% NaCl Peripheral Flush Adult/Peds IV (11:09)
[2020-04-25 14:26] VITALS: BP 155/77
== END | disposition home or self-care (01) ==
PROVIDERS: PCP Family Medicine; Referring Provider Family Medicine; Visit Provider Family Medicine
DX: L40.52 Psoriatic arthritis mutilans (principal); M50.90 Cervical disc disorder, unspecified, unspecified cervical region; L40.9 Psoriasis, unspecified; Z79.899 Other long term (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
CPT/HCPCS: 96413; 96415; J7050; A4216; Q5103

== ENCOUNTER 2020-05-08 13:00 | Outpatient (RCR) | payer MEDICARE, OTHER, SELFPAY ==
[2020-02-20 11:30] VITALS: BMI 31.1
[2020-04-24 09:17] VITALS: BP 144/79; PULSE 63; RESP 18; TEMP 36.8; BMI 31.1
--- NOTE | 2020-04-24 14:05 | PCM.WC.HP ---
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 Surgery was on 25 March and per patient was uneventful however has had delayed healing of his surgical wound. He has been on a 3-week course of doxycycline and is currently on levofloxacin and has been applying antibiotic ointment daily. History of diabetes mellitus and per patient his last A1c was 7.6. He reports compliance with his medication. Denies chills, fever or otherwise feeling of unwell at this time. Past Medical History Past Medical History: Chronic Problems (Last Reviewed 02/20/20 @ 11:36 by Winnie Corona) Non-healing surgical wound (Chronic) Left Great Toe ( Dorsum and Plantar ) Essential hypertension (Chronic) RAJESH (obstructive sleep apnea) (Chronic) Ectopic atrial tachycardia (Chronic) Paroxysmal ventricular tachycardia (Chronic) Premature atrial contractions (Chronic) Shortness of breath (Chronic) Hyperlipidemia (Chronic) Premature ventricular contraction (Chronic) Supraventricular tachycardia (Chronic) Long-term use of high-risk medication (Chronic) Body mass index 31.0-31.9, adult (Chronic) Diabetes mellitus (Chronic) 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) Chronic osteomyelitis involving ankle and foot (Chronic) Allergies/Adverse Reactions: Allergies cephalexin [From Keflex] Allergy (Severe, Verified 02/20/20 11:31) rash sulfamethoxazole [From Bactrim] Allergy (Severe, Verified 02/20/20 11:31) Rash trimethoprim [From Bactrim] Allergy (Severe, Verified 02/20/20 11:31) Rash Penicillins Adverse Reaction (Verified 02/20/20 11:31) Unknown Home Medications: Ambulatory Orders Medication Instructions Recorded Finasteride [Proscar] 5 mg PO DAILY 02/03/16 Tamsulosin HCl [Flomax] 0.4 mg PO DAILY 03/22/16 metFORMIN HCl [Glucophage] 1,000 mg PO BIDCM 02/03/16 Bimatoprost [Lumigan] 1 drp EACH EYE DAILY 06/30/18 Fluticasone 0.05% [Flonase Nasal 2 spray NASAL DAILY PRN 06/30/18 [place]] 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 7.5 mg PO Q7D 06/30/18 Pyridoxine HCl [Vitamin B-6] 100 mg PO DAILY 06/30/18 infliximab-dyyb 100 mg intravenous mg IV [id number] 09/22/18 solution Multivitamins,Therapeutic 1 tab PO DAILY 10/20/18 [Multivitamin] Oxybutynin Chloride [Ditropan Xl] 5 mg PO DAILY 10/20/18 Timolol 0.25% [Timoptic] 1 drp EACH EYE BID 10/20/18 fexofenadine 180 mg tablet 180 mg PO DAILY 06/01/19 folic acid 1 mg tablet 4 mg PO DAILY 06/01/19 lisinopril 40 mg tablet 40 mg PO DAILY #90 tab 06/01/19 potassium chloride 20 mEq 20 meq PO DAILY #90 tab 06/01/19 tablet,extended release(part/cryst) pravastatin 40 mg tablet 40 mg PO DAILY #90 tab 06/01/19 cyanocobalamin (vitamin B-12) 100 100 mcg PO DAILY 02/20/20 mcg tablet glucosamine HCl 1,500 mg tablet 1,500 mg PO BID tab 02/20/20 vit C 250 mg-E 200 unit-zinc 40 1 cap PO DAILY 02/20/20 mg-copper 1 xa-hdnrfu-xiotuu capsule hydrochlorothiazide 25 mg tablet 25 mg PO DAILY #90 tab 04/18/20 metoprolol succinate 100 mg 100 mg PO BID #180 tab 04/18/20 tablet,extended release 24 hr Levofloxacin [Levaquin] 500 mg PO DAILY 04/24/20 Smoking Status: Former smoker Review of Systems Constitutional: Denies: Anorexia, Chills, Fever, Malaise, Weakness Eyes: Denies: Blurred vision, Pain, Redness HEENT: Denies: Difficulty Swallowing, Nasal bleeding, Sore Throat Cardiovascular: Denies: Chest Pain, Claudication, Chest Pressure, Chest Tightness Respiratory: Denies: Hemoptysis Gastrointestinal: Denies: Abdominal Pain, Hematemesis, Vomiting Genitourinary: Denies: Hematuria Skin: Denies: Jaundice - Physical Exam Vital Signs Temp Pulse Resp BP 98.2 F 63 18 144/79 H 04/24/20 09:17 04/24/20 09:17 04/24/20 09:17 04/24/20 09:17 General: Alert, Oriented x3, Cooperative, No apparent distress HEENT: Atraumatic, Normocephalic Oral: Moist Mucosa Neck: Supple Lungs: Normal air movement Cardiovascular: Regular rate, Normal S1, Normal S2 Abdomen: Soft, Non Tender, Obese Extremities: No cyanosis, Edema Skin: Ulcer/ Wound Wound Measurements and Assessment WC - Nurse 1 - General Ulcer Measurement Start: 04/24/20 09:03 Freq: Status: Active Protocol: Activity Type Activity Date Activity User E-Sign Co-Sign Detail Recorded Client Recorded Date Recorded By Document 04/24/20 09:17 RB [id number] 04/24/20 09:21 RB 04/24/20 09:17 Wound Center Nurse 1 [Ulcer Assessment] 2. L plantar foot medial -Combined with other wound No -Current Size (cm) - Length 0.8 -Current Size (cm) - Width 1 -Current Size (cm) - Depth 0.2 -Total Square Cm 0.8 -Photo Taken Yes -Tunneling No -Undermining/Tunneling No -Circular Undermining No -Exudate Amt Small -Exudate Type Serosanguineous -Wound Margin Flat & Intact -Granulation Amt Medium (34-66%) -Granulation Quality [place] -Slough/Fibrin Yes -Necrosis Amt Small (1-33%) -Necrotic Tissue Type Adherent Slough -Structure Exposed N/A -Texture (Angie-wound Skin Appearance) Assessed,Callus -Moisture (Angie-wound Skin Appearance Assessed ) -Color (Angie-wound Skin Appearance) Assessed -Temperature (Angie-wound Skin No Abnormality Appearance) (Pt Warm) -Tenderness on Palpation (Angie-wound No Skin Appearance) -Ulcer Cleansing Wound Cleanser -Foul Odor after Cleansing No -Anesthetic Used 4% Lidocaine Solution 1. left dorsal great toe -Combined with other wound No -Current Size (cm) - Length 1.8 -Current Size (cm) - Width 0.7 -Current Size (cm) - Depth 0.1 -Total Square Cm 1.26 -Photo Taken Yes -Tunneling No -Undermining/Tunneling No -Circular Undermining No -Exudate Amt Small -Exudate Type Serosanguineous -Wound Margin Flat & Intact -Granulation Amt Medium (34-66%) -Granulation Quality [place] -Slough/Fibrin Yes -Necrosis Amt Small (1-33%) -Necrotic Tissue Type Adherent Slough -Structure Exposed N/A -Texture (Angie-wound Skin Appearance) Assessed -Moisture (Angie-wound Skin Appearance Assessed ) -Color (Angie-wound Skin Appearance) Assessed -Temperature (Angie-wound Skin No Abnormality Appearance) (Pt Warm) -Tenderness on Palpation (Angie-wound No Skin Appearance) -Ulcer Cleansing Wound Cleanser -Foul Odor after Cleansing No -Anesthetic Used 4% Lidocaine Solution [Edema Assessment] -Lower Limb Edema Present Yes -Right Calf (cm) 42 -Right Ankle (cm) 25 -Right Foot (cm) 22 -Left Calf (cm) 41.2 -Left Ankle (cm) 25.5 -Left Foot (cm) 22 WC - Nurse 2 - General Ulcer CM Notes Start: 04/24/20 09:03 Freq: Status: Active Protocol: Activity Type Activity Date Activity User E-Sign Co-Sign Detail Recorded Client Recorded Date Recorded By Document 04/24/20 09:31 MW [id number] 04/24/20 09:37 MW 04/24/20 09:31 Wound Center Nurse 2 [Procedure/Treatment] 2. L plantar foot medial -Time 09:34 -Correct Patient Yes -Correct Side, Site, Position Yes -Correct Procedure Yes -Procedure Performed Yes -Type of Procedure Debridement -Clinical Debridement Subcutaneous -Post Debridement Size (cm) - Length 0.7 -Post Debridement Size (cm) - Width 1.0 -Post Debridement Size (cm) - Depth 0.2 -Total Square Cm 0.70 -Wound/Ulcer Outcome Not Healed -Ulcer Cleansing Rinsed/ Irrigated with Saline -Foul Odor after Cleansing No -Bioengineered Tissue No 1. left dorsal great toe -Time 09:36 -Correct Patient Yes -Correct Side, Site, Position Yes -Correct Procedure Yes -Procedure Performed Yes -Type of Procedure Debridement -Clinical Debridement Subcutaneous -Post Debridement Size (cm) - Length 2.2 -Post Debridement Size (cm) - Width 0.6 -Post Debridement Size (cm) - Depth 0.2 -Total Square Cm 1.32 -Wound/Ulcer Outcome Not Healed -Ulcer Cleansing Rinsed/ Irrigated with Saline -Foul Odor after Cleansing No -Bioengineered Tissue No -Bleeding Controlled with Pressure -Offloading No -Treatment Response Procedure Tolerated Well [See Physician Procedure note for Specifics] Pain Scale: 0-10 Numeric [Pain] -Is Patient Pain Free? Yes Musculoskeletal: No Muscle Wasting Neurological: Cranial nerves II-XII grossly intact Debridement Note Post-Debridement Measurements/Treatment WC - Nurse 2 - General Ulcer CM Notes Start: 04/24/20 09:03 Freq: Status: Active Protocol: Activity Type Activity Date Activity User E-Sign Co-Sign Detail Recorded Client Recorded Date Recorded By Document 04/24/20 09:31 MW [id number] 04/24/20 09:37 MW 04/24/20 09:31 Wound Center Nurse 2 2. L plantar foot medial -Time 09:34 -Correct Patient Yes -Correct Side, Site, Position Yes -Correct Procedure Yes -Procedure Performed Yes -Type of Procedure Debridement -Clinical Debridement Subcutaneous -Post Debridement Size (cm) - Length 0.7 -Post Debridement Size (cm) - Width 1.0 -Post Debridement Size (cm) - Depth 0.2 -Total Square Cm 0.70 -Wound/Ulcer Outcome Not Healed -Ulcer Cleansing Rinsed/ Irrigated with Saline -Foul Odor after Cleansing No -Bioengineered Tissue No 1. left dorsal great toe -Time 09:36 -Correct Patient Yes -Correct Side, Site, Position Yes -Correct Procedure Yes -Procedure Performed Yes -Type of Procedure Debridement -Clinical Debridement Subcutaneous -Post Debridement Size (cm) - Length 2.2 -Post Debridement Size (cm) - Width 0.6 -Post Debridement Size (cm) - Depth 0.2 -Total Square Cm 1.32 -Wound/Ulcer Outcome Not Healed -Ulcer Cleansing Rinsed/ Irrigated with Saline -Foul Odor after Cleansing No -Bioengineered Tissue No -Bleeding Controlled with Pressure -Offloading No -Treatment Response Procedure Tolerated Well Pain Scale: 0-10 Numeric Is Patient Pain Free? Yes Wound debrided: Left great toe (dorsal aspect) Type of Debridement: Excisional debridement Anesthesia Used: 4% Lidocaine Solution Depth: Down to and including healthy tissue, in the subcutaneous layer Percentage of wound debrided: 100 Instrument Used: 3mm curette Tissue Removed: Slough and devitalized tissue Severity: Fat Layer Exposed Amount of bleeding with debridement: Mild Bleeding Controlled with: Pressure Patient tolerated procedure well - Additional Wound Wound debrided: Left great toe (plantar) Type of Debridement: Excisional debridement Anesthesia Used: 4% Lidocaine Solution Depth: Down to and including healthy tissue, in the subcutaneous layer Percentage of wound debrided: 100 Instrument Used: 3mm curette Tissue Removed: Slough and devitalized tissue Severity: Fat Layer Exposed Amount of bleeding with debridement: Mild Bleeding Controlled with: Pressure Patient tolerated procedure: Patient tolerated procedure well Assessment/Plan Active Problems (Last Reviewed 02/20/20 @ 11:36 by Winnie Corona) Non-healing surgical wound (Chronic) Left Great Toe ( Dorsum and Plantar ) Diabetes mellitus (Chronic) Assessment: Same as above. Plan: Debridement done as documented above. Procedure was well-tolerated. About a month postop which nonhealing. History of diabetes which is not optimally controlled. For now, Promogran daily with Adaptic over top. Double layer Tubigrip for edema management. Optimal diabetes control, increased fluid intake and offloading recommended. Will also apply for skin substitute due to the chronicity of wound. His questions were answered and he was advised to call with any further questions or concerns. Follow-up in a week. Multi Select Codes - Visit Charges Office Visit/Consults: 83489 OV L3 Est - Integumentary Integumentary CPT Codes: 99977 Vannessa subq tissue 20 sq cm/<
[2020-05-01 10:12] VITALS: BP 134/75; PULSE 77; RESP 18; TEMP 36.6; BMI 31.1
--- NOTE | 2020-05-01 10:43 | PCM.WC.PN ---
(1) Non-healing surgical wound Status: Chronic Current Visit: Yes Code(s): T81.89XA - Other complications of procedures, not elsewhere classified, initial encounter Comment: Left Great Toe ( Dorsum and Plantar ) (2) Diabetes mellitus Status: Chronic Current Visit: Yes Code(s): E11.9 - Type 2 diabetes mellitus without complications Type of Wound Date of Service: 05/01/20 Chief Complaint: Non healing Left Great Toe Surgical wound History of Wound: Mr Hatch Was referred here by his packager hand due to nonhealing left great toe wound status post surgery. Surgery was on 25 March and per patient was uneventful however has had delayed healing of his surgical wound. He has been on a 3-week course of doxycycline and is currently on levofloxacin and has been applying antibiotic ointment daily. History of diabetes mellitus and per patient his last A1c was 7.6. He reports compliance with his medication. Denies chills, fever or otherwise feeling of unwell at this time. Progress of Wound: Improving. No new concerns. - Physical Exam Vital Signs Temp Pulse Resp BP 97.8 F 77 18 134/75 H 05/01/20 10:12 05/01/20 10:12 05/01/20 10:12 05/01/20 10:12 General: Alert, Oriented x3, Cooperative, No apparent distress HEENT: Atraumatic, Normocephalic Oral: Moist Mucosa Neck: Supple Lungs: Normal air movement Extremities: No cyanosis Skin: Ulcer/ Wound Wound Measurements and Assessment WC - Nurse 1 - General Ulcer Measurement Start: 04/24/20 09:03 Freq: Status: Active Protocol: Activity Type Activity Date Activity User E-Sign Co-Sign Detail Recorded Client Recorded Date Recorded By Document 05/01/20 10:12 DL [id number] 05/01/20 10:17 DL 05/01/20 10:12 Wound Center Nurse 1 [Ulcer Assessment] 2. L plantar foot medial -Current Size (cm) - Length 0.4 -Current Size (cm) - Width 0.7 -Current Size (cm) - Depth 0.3 -Total Square Cm 0.28 -Photo Taken No -Undermining/Tunneling Starts (O' 11 clock) -Undermining/Tunneling Ends (O'clock) 2 -Maximum Distance (cm) 0.2 -Exudate Amt Small -Exudate Type Serosanguineous -Wound Margin Thickened -Granulation Amt Large (67-100%) -Granulation Quality Red -Necrosis Amt Small (1-33%) -Necrotic Tissue Type Adherent Slough -Structure Exposed N/A -Texture (Angie-wound Skin Appearance) Callus -Moisture (Angie-wound Skin Appearance Dry/Scaly ) -Color (Angie-wound Skin Appearance) Rubor -Temperature (Angie-wound Skin No Abnormality Appearance) (Pt Warm) -Tenderness on Palpation (Angie-wound No Skin Appearance) -Ulcer Cleansing Wound Cleanser -Foul Odor after Cleansing No -Anesthetic Used 4% Lidocaine Solution 1. left dorsal great toe -Current Size (cm) - Length 1.4 -Current Size (cm) - Width 0.5 -Current Size (cm) - Depth 0.2 -Total Square Cm 0.70 -Photo Taken No -Exudate Amt Small -Exudate Type Serosanguineous -Wound Margin Distinct, Outline Attached -Granulation Amt Large (67-100%) -Granulation Quality Red -Necrosis Amt Small (1-33%) -Necrotic Tissue Type Adherent Slough -Structure Exposed N/A -Texture (Angie-wound Skin Appearance) Scarring -Moisture (Angie-wound Skin Appearance Dry/Scaly ) -Color (Angie-wound Skin Appearance) Erythema,Rubor -Temperature (Angie-wound Skin No Abnormality Appearance) (Pt Warm) -Tenderness on Palpation (Angie-wound No Skin Appearance) -Ulcer Cleansing Rinsed/ Irrigated with Saline -Foul Odor after Cleansing No -Anesthetic Used 4% Lidocaine Solution [Edema Assessment] -Left Calf (cm) 25.6 -Left Ankle (cm) 41.5 Musculoskeletal: No Muscle Wasting Neurological: Cranial nerves II-XII grossly intact Psych/Mental Status: Normal Affect Debridement Note Post-Debridement Measurements/Treatment WC - Nurse 2 - General Ulcer CM Notes Start: 04/24/20 09:03 Freq: Status: Active Protocol: Activity Type Activity Date Activity User E-Sign Co-Sign Detail Recorded Client Recorded Date Recorded By Document 04/24/20 09:31 MW [id number] 04/24/20 09:37 MW 04/24/20 09:31 Wound Center Nurse 2 2. L plantar foot medial -Time 09:34 -Correct Patient Yes -Correct Side, Site, Position Yes -Correct Procedure Yes -Procedure Performed Yes -Type of Procedure Debridement -Clinical Debridement Subcutaneous -Post Debridement Size (cm) - Length 0.7 -Post Debridement Size (cm) - Width 1.0 -Post Debridement Size (cm) - Depth 0.2 -Total Square Cm 0.70 -Wound/Ulcer Outcome Not Healed -Ulcer Cleansing Rinsed/ Irrigated with Saline -Foul Odor after Cleansing No -Bioengineered Tissue No 1. left dorsal great toe -Time 09:36 -Correct Patient Yes -Correct Side, Site, Position Yes -Correct Procedure Yes -Procedure Performed Yes -Type of Procedure Debridement -Clinical Debridement Subcutaneous -Post Debridement Size (cm) - Length 2.2 -Post Debridement Size (cm) - Width 0.6 -Post Debridement Size (cm) - Depth 0.2 -Total Square Cm 1.32 -Wound/Ulcer Outcome Not Healed -Ulcer Cleansing Rinsed/ Irrigated with Saline -Foul Odor after Cleansing No -Bioengineered Tissue No -Bleeding Controlled with Pressure -Offloading No -Treatment Response Procedure Tolerated Well Pain Scale: 0-10 Numeric Is Patient Pain Free? Yes Wound debrided: Left toe plantar Type of Debridement: Excisional debridement Anesthesia Used: 4% Lidocaine Solution Depth: Down to and including healthy tissue, in the subcutaneous layer Percentage of wound debrided: 100 Instrument Used: 3mm curette Tissue Removed: Slough and devitalized tissue Severity: Fat Layer Exposed Amount of bleeding with debridement: Mild Bleeding Controlled with: Pressure Patient tolerated procedure well - Additional Wound Wound debrided: Left great toe dorsal Type of Debridement: Excisional debridement Anesthesia Used: 4% Lidocaine Solution Depth: Down to and including healthy tissue, in the subcutaneous layer Percentage of wound debrided: 100 Instrument Used: 3mm curette Tissue Removed: Slough and devitalized tissue Severity: Fat Layer Exposed Amount of bleeding with debridement: Mild Bleeding Controlled with: Pressure Patient tolerated procedure: Patient tolerated procedure well Assessment/Plan Active Problems (Last Reviewed 02/20/20 @ 11:36 by Winnie Corona) Non-healing surgical wound (Chronic) Left Great Toe ( Dorsum and Plantar ) Diabetes mellitus (Chronic) Assessment: Same as above. Plan: Debridement done as documented above. Procedure was well-tolerated. Improving. Continue Promogran daily with Adaptic over top. Double layer Tubigrip for edema management. Optimal diabetes control, increased fluid intake and offloading recommended. His questions were answered and he was advised to call with any further questions or concerns. Follow-up in a week. This note was generated with [employer] software. It may contain incorrect words, spelling, and punctuation that were not noted in checking the note before signing. [id number]: [id number] Vannessa subq tissue 20 sq cm/<
[2020-05-08 13:07] VITALS: RESP 18; TEMP 36.5; BMI 31.1
--- NOTE | 2020-05-08 13:35 | PCM.WC.PN ---
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 Surgery was on 25 March and per patient was uneventful however has had delayed healing of his surgical wound. He has been on a 3-week course of doxycycline and is currently on levofloxacin and has been applying antibiotic ointment daily. History of diabetes mellitus and per patient his last A1c was 7.6. He reports compliance with his medication. Denies chills, fever or otherwise feeling of unwell at this time. Progress of Wound: Left dorsal is healed, plantar with no significant change. - Physical Exam Vital Signs Temp Pulse Resp BP 97.7 F L 77 18 134/75 H 05/08/20 13:07 05/01/20 10:12 05/08/20 13:07 05/01/20 10:12 General: Alert, Oriented x3, Cooperative, No apparent distress HEENT: Atraumatic, Normocephalic Oral: Moist Mucosa Neck: Supple Lungs: Normal air movement Abdomen: Non Tender Extremities: No cyanosis, Edema Skin: Ulcer/ Wound Wound Measurements and Assessment WC - Nurse 1 - General Ulcer Measurement Start: 04/24/20 09:03 Freq: Status: Active Protocol: Activity Type Activity Date Activity User E-Sign Co-Sign Detail Recorded Client Recorded Date Recorded By Document 05/08/20 13:07 ZION [id number] 05/08/20 13:13 ZION 05/08/20 13:07 Wound Center Nurse 1 [Ulcer Assessment] 2. L plantar foot medial -Combined with other wound No -Current Size (cm) - Length 0.5 -Current Size (cm) - Width 0.6 -Current Size (cm) - Depth 0.2 -Total Square Cm 0.30 -Photo Taken No -Epithelialization None Present -Tunneling No -Undermining/Tunneling No -Circular Undermining Yes -Exudate Amt Small -Exudate Type Serosanguineous -Wound Margin Flat & Intact -Granulation Amt Large (67-100%) -Granulation Quality Red -Slough/Fibrin Yes -Necrosis Amt Small (1-33%) -Necrotic Tissue Type Adherent Slough -Structure Exposed N/A -Texture (Angie-wound Skin Appearance) Assessed,Callus -Moisture (Angie-wound Skin Appearance Assessed,Dry/ ) Scaly -Color (Angie-wound Skin Appearance) Assessed -Temperature (Angie-wound Skin No Abnormality Appearance) (Pt Warm) -Tenderness on Palpation (Angie-wound No Skin Appearance) -Ulcer Cleansing Rinsed/ Irrigated with Saline -Foul Odor after Cleansing No -Anesthetic Used 4% Lidocaine Solution 1. left dorsal great toe -Combined with other wound No -Current Size (cm) - Length 0.1 -Current Size (cm) - Width 0.1 -Current Size (cm) - Depth 0 -Total Square Cm 0.01 -Photo Taken No -Epithelialization Large 67-100% -Tunneling No -Undermining/Tunneling No -Circular Undermining No -Exudate Amt None Present -Wound Margin Indistinct, Non -Visible -Granulation Amt None Present (0 %) -Slough/Fibrin Yes -Necrosis Amt Medium (34-66%) -Necrotic Tissue Type Adherent Slough -Structure Exposed N/A -Texture (Angie-wound Skin Appearance) Assessed, Localized Edema -Moisture (Angie-wound Skin Appearance Assessed,Dry/ ) Scaly -Color (Angie-wound Skin Appearance) Assessed -Temperature (Angie-wound Skin No Abnormality Appearance) (Pt Warm) -Tenderness on Palpation (Angie-wound No Skin Appearance) -Ulcer Cleansing Rinsed/ Irrigated with Saline -Foul Odor after Cleansing No -Anesthetic Used 4% Lidocaine Solution [Edema Assessment] -Lower Limb Edema Present Yes WC - Nurse 2 - General Ulcer CM Notes Start: 04/24/20 09:03 Freq: Status: Active Protocol: Activity Type Activity Date Activity User E-Sign Co-Sign Detail Recorded Client Recorded Date Recorded By Document 05/08/20 13:23 DV [id number] 05/08/20 13:25 DV 05/08/20 13:23 Wound Center Nurse 2 [Procedure/Treatment] 2. L plantar foot medial -Time 13:25 -Correct Patient Yes -Correct Side, Site, Position Yes -Correct Procedure Yes -Procedure Performed Yes -Type of Procedure Debridement -Clinical Debridement Subcutaneous -Post Debridement Size (cm) - Length 0.6 -Post Debridement Size (cm) - Width 0.7 -Post Debridement Size (cm) - Depth 0.2 -Total Square Cm 0.42 -Wound/Ulcer Outcome Not Healed 1. left dorsal great toe -Time 13:24 -Correct Patient Yes -Correct Side, Site, Position Yes -Correct Procedure No -Procedure Performed No -Post Debridement Size (cm) - Length 0.1 -Post Debridement Size (cm) - Width 0.1 -Post Debridement Size (cm) - Depth 0.1 -Total Square Cm 0.01 -Wound/Ulcer Outcome Not Healed -Ulcer Cleansing Rinsed/ Irrigated with Saline -Foul Odor after Cleansing No -Bioengineered Tissue No [See Physician Procedure note for Specifics] Pain Scale: 0-10 Numeric [Pain] -Is Patient Pain Free? Yes Musculoskeletal: No Muscle Wasting Neurological: Cranial nerves II-XII grossly intact Psych/Mental Status: Normal Affect Debridement Note Post-Debridement Measurements/Treatment WC - Nurse 2 - General Ulcer CM Notes Start: 04/24/20 09:03 Freq: Status: Active Protocol: Activity Type Activity Date Activity User E-Sign Co-Sign Detail Recorded Client Recorded Date Recorded By Document 04/24/20 09:31 MW [id number] 04/24/20 09:37 MW Document 05/01/20 12:52 PL [id number] 05/01/20 12:55 PL Document 05/08/20 13:23 DV [id number] 05/08/20 13:25 DV 04/24/20 05/01/20 05/08/20 09:31 12:52 13:23 Wound Center Nurse 2 2. L plantar foot medial -Time 09:34 10:35 13:25 -Correct Patient Yes Yes Yes -Correct Side, Site, Position Yes Yes Yes -Correct Procedure Yes Yes Yes -Procedure Performed Yes Yes Yes -Type of Procedure Debridement Debridement Debridement -Clinical Debridement Subcutaneous Subcutaneous Subcutaneous -Post Debridement Size (cm) - Length 0.7 0.5 0.6 -Post Debridement Size (cm) - Width 1.0 0.8 0.7 -Post Debridement Size (cm) - Depth 0.2 0.2 0.2 -Total Square Cm 0.70 0.40 0.42 -Wound/Ulcer Outcome Not Healed Not Healed Not Healed -Ulcer Cleansing Rinsed/ Rinsed/ Irrigated with Irrigated with Saline Saline -Foul Odor after Cleansing No No -Bioengineered Tissue No -Bleeding Controlled with Pressure -Treatment Response Procedure Tolerated Well 1. left dorsal great toe -Time 09:36 10:35 13:24 -Correct Patient Yes Yes Yes -Correct Side, Site, Position Yes Yes Yes -Correct Procedure Yes Yes No -Procedure Performed Yes Yes No -Type of Procedure Debridement Debridement -Clinical Debridement Subcutaneous Subcutaneous -Post Debridement Size (cm) - Length 2.2 1.4 0.1 -Post Debridement Size (cm) - Width 0.6 0.4 0.1 -Post Debridement Size (cm) - Depth 0.2 0.1 0.1 -Total Square Cm 1.32 0.56 0.01 -Wound/Ulcer Outcome Not Healed Not Healed Not Healed -Ulcer Cleansing Rinsed/ Rinsed/ Rinsed/ Irrigated with Irrigated with Irrigated with Saline Saline Saline -Foul Odor after Cleansing No No No -Bioengineered Tissue No No -Bleeding Controlled with Pressure Pressure -Offloading No -Treatment Response Procedure Procedure Tolerated Well Tolerated Well Pain Scale: 0-10 Numeric Is Patient Pain Free? Yes Yes Yes Wound debrided: Left Great Toe ( Plantar ) Type of Debridement: Excisional debridement Anesthesia Used: 4% Lidocaine Solution Depth: Down to and including healthy tissue, in the subcutaneous layer Percentage of wound debrided: 100 Instrument Used: 5mm curette Tissue Removed: Slough and devitalized tissue Severity: Fat Layer Exposed Amount of bleeding with debridement: Mild Bleeding Controlled with: Pressure Patient tolerated procedure well Assessment/Plan Active Problems (Last Reviewed 02/20/20 @ 11:36 by Winnie Corona) Non-healing surgical wound (Chronic) Left Great Toe ( Dorsum and Plantar ) Diabetes mellitus (Chronic) Assessment: Same as above. Plan: Debridement done as documented above. Procedure was well-tolerated. Adaptic to the dorsal area. Continue Pomogran daily with Adaptic over top to plantar wound. Double layer Tubigrip for edema management. Optimal diabetes control, increased fluid intake and offloading recommended. His questions were answered and he was advised to call with any further questions or concerns. Follow-up in 2 weeks. This note was generated with [employer] software. It may contain incorrect words, spelling, and punctuation that were not noted in checking the note before signing. [id number]: [id number] Vannessa subq tissue 20 sq cm/<
== END 2020-05-13 23:59 ==
LOC: WC 13:00
PROVIDERS: PCP Family Medicine; Visit Provider Internal Medicine
DX: T81.89XA Other complications of procedures, not elsewhere classified, initial encounter (principal); Y83.8 Other surgical procedures as the cause of abnormal reaction of the patient, or of later complication, without mention of misadventure at the time of the procedure; G47.33 Obstructive sleep apnea (adult) (pediatric); I10 Essential (primary) hypertension; E78.5 Hyperlipidemia, unspecified; M86.679 Other chronic osteomyelitis, unspecified ankle and foot; E11.69 Type 2 diabetes mellitus with other specified complication; Z86.14 Personal history of Methicillin resistant Staphylococcus aureus infection; Z79.899 Other long term (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; Z87.891 Personal history of nicotine dependence
CPT/HCPCS: 11042; 99213; G0463

== ENCOUNTER 2020-06-12 10:30 | Outpatient (RCR) | payer MEDICARE, OTHER, SELFPAY ==
[2020-05-14 00:36] VITALS: BP 134/75; PULSE 77; RESP 18; TEMP 36.5; BMI 30.2
[2020-05-22 11:20] VITALS: BP 151/71; PULSE 80; RESP 18; TEMP 36.6; BMI 30.2
--- NOTE | 2020-05-22 11:40 | PCM.WC.PN ---
(1) Non-healing surgical wound Status: Chronic Current Visit: Yes Code(s): T81.89XA - Other complications of procedures, not elsewhere classified, initial encounter Comment: Left Great Toe ( Dorsum and Plantar ) (2) Diabetes mellitus Status: Chronic Current Visit: Yes Qualifiers: Diabetes mellitus type: type 2 Code(s): E11.9 - Type 2 diabetes mellitus without complications Type of Wound Date of Service: 05/22/20 Chief Complaint: Non healing Left Great Toe Surgical wound History of Wound: Mr Hatch Was referred here by his speech language assistant due to nonhealing left great toe wound status post surgery. Surgery was on 25 March and per patient was uneventful however has had delayed healing of his surgical wound. He has been on a 3-week course of doxycycline and is currently on levofloxacin and has been applying antibiotic ointment daily. History of diabetes mellitus and per patient his last A1c was 7.6. He reports compliance with his medication. Denies chills, fever or otherwise feeling of unwell at this time. Progress of Wound: Left dorsal stays healed, plantar with no significant change. - Physical Exam Vital Signs Temp Pulse Resp BP 97.9 F 80 18 151/71 H 05/22/20 11:20 05/22/20 11:20 05/22/20 11:20 05/22/20 11:20 General: Alert, Oriented x3, Cooperative, No apparent distress HEENT: Atraumatic, Normocephalic Oral: Moist Mucosa Neck: Supple Lungs: Normal air movement Extremities: No cyanosis Skin: Ulcer/ Wound Wound Measurements and Assessment WC - Nurse 1 - General Ulcer Measurement Start: 05/22/20 11:20 Freq: Status: Active Protocol: Activity Type Activity Date Activity User E-Sign Co-Sign Detail Recorded Client Recorded Date Recorded By Document 05/22/20 11:20 RB [id number] 05/22/20 11:23 RB 05/22/20 11:20 Wound Center Nurse 1 [Ulcer Assessment] 2. L plantar foot medial -Combined with other wound No -Current Size (cm) - Length 0.7 -Current Size (cm) - Width 0.5 -Current Size (cm) - Depth 0.5 -Total Square Cm 0.35 -Tunneling No -Undermining/Tunneling Yes -Undermining/Tunneling Starts (O' 12 clock) -Undermining/Tunneling Ends (O'clock) 12 -Maximum Distance (cm) 0.2 -Circular Undermining Yes -Exudate Amt Small -Exudate Type Serosanguineous -Wound Margin Thickened -Granulation Amt Medium (34-66%) -Granulation Quality [place] -Slough/Fibrin Yes -Necrosis Amt Small (1-33%) -Necrotic Tissue Type Adherent Slough -Structure Exposed N/A -Texture (Angie-wound Skin Appearance) Assessed,Callus -Moisture (Angie-wound Skin Appearance Assessed ) -Color (Angie-wound Skin Appearance) Assessed -Temperature (Angie-wound Skin No Abnormality Appearance) (Pt Warm) -Tenderness on Palpation (Angie-wound No Skin Appearance) -Ulcer Cleansing Wound Cleanser -Foul Odor after Cleansing No -Anesthetic Used 5% Lidocaine Gel 1. left dorsal great toe -Current Size (cm) - Length 0.1 -Current Size (cm) - Width 0.1 -Current Size (cm) - Depth 0.1 -Total Square Cm 0.01 -Tunneling No -Undermining/Tunneling No -Circular Undermining No -Exudate Amt None Present -Wound Margin Flat & Intact -Granulation Amt Large (67-100%) -Granulation Quality [place] -Necrosis Amt None Present (0 %) -Structure Exposed N/A -Texture (Angie-wound Skin Appearance) Assessed, Scarring -Moisture (Angie-wound Skin Appearance Assessed ) -Color (Angie-wound Skin Appearance) Assessed -Temperature (Angie-wound Skin No Abnormality Appearance) (Pt Warm) -Tenderness on Palpation (Angie-wound No Skin Appearance) -Ulcer Cleansing Wound Cleanser -Foul Odor after Cleansing No -Anesthetic Used 5% Lidocaine Gel [Edema Assessment] -Lower Limb Edema Present Yes -Left Calf (cm) 41.5 -Left Ankle (cm) 25.7 WC - Nurse 2 - General Ulcer CM Notes Start: 05/22/20 11:20 Freq: Status: Active Protocol: Activity Type Activity Date Activity User E-Sign Co-Sign Detail Recorded Client Recorded Date Recorded By Document 05/22/20 11:29 MW [id number] 05/22/20 11:38 MW 05/22/20 11:29 Wound Center Nurse 2 [Procedure/Treatment] 2. L plantar foot medial -Time 11:34 -Correct Patient Yes -Correct Side, Site, Position Yes -Correct Procedure Yes -Procedure Performed No -Post Debridement Size (cm) - Length 0.8 -Post Debridement Size (cm) - Width 0.6 -Post Debridement Size (cm) - Depth 0.4 -Total Square Cm 0.48 -Wound/Ulcer Outcome Not Healed -Ulcer Cleansing Rinsed/ Irrigated with Saline -Foul Odor after Cleansing No -Bioengineered Tissue No -Bleeding Controlled with Pressure -Offloading No -Treatment Response Procedure Tolerated Well 1. left dorsal great toe -Time 11:33 -Correct Patient Yes -Correct Side, Site, Position Yes -Correct Procedure Yes -Procedure Performed No -Post Debridement Size (cm) - Length 0 -Post Debridement Size (cm) - Width 0 -Post Debridement Size (cm) - Depth 0 -Total Square Cm 0 -Wound/Ulcer Outcome Healed- Epithelialized [See Physician Procedure note for Specifics] Pain Scale: 0-10 Numeric [Pain] -Is Patient Pain Free? Yes Musculoskeletal: No Muscle Wasting Neurological: Cranial nerves II-XII grossly intact Psych/Mental Status: Normal Affect Debridement Note Post-Debridement Measurements/Treatment WC - Nurse 2 - General Ulcer CM Notes Start: 05/22/20 11:20 Freq: Status: Active Protocol: Activity Type Activity Date Activity User E-Sign Co-Sign Detail Recorded Client Recorded Date Recorded By Document 05/22/20 11:29 MW [id number] 05/22/20 11:38 MW 05/22/20 11:29 Wound Center Nurse 2 2. L plantar foot medial -Time 11:34 -Correct Patient Yes -Correct Side, Site, Position Yes -Correct Procedure Yes -Procedure Performed No -Post Debridement Size (cm) - Length 0.8 -Post Debridement Size (cm) - Width 0.6 -Post Debridement Size (cm) - Depth 0.4 -Total Square Cm 0.48 -Wound/Ulcer Outcome Not Healed -Ulcer Cleansing Rinsed/ Irrigated with Saline -Foul Odor after Cleansing No -Bioengineered Tissue No -Bleeding Controlled with Pressure -Offloading No -Treatment Response Procedure Tolerated Well 1. left dorsal great toe -Time 11:33 -Correct Patient Yes -Correct Side, Site, Position Yes -Correct Procedure Yes -Procedure Performed No -Post Debridement Size (cm) - Length 0 -Post Debridement Size (cm) - Width 0 -Post Debridement Size (cm) - Depth 0 -Total Square Cm 0 -Wound/Ulcer Outcome Healed- Epithelialized Pain Scale: 0-10 Numeric Is Patient Pain Free? Yes Wound debrided: Left great toe (plantar) Type of Debridement: Excisional debridement Anesthesia Used: 4% Lidocaine Solution Depth: Down to and including healthy tissue, in the subcutaneous layer Percentage of wound debrided: 100 Instrument Used: 3mm curette Tissue Removed: Slough and devitalized tissue Severity: Fat Layer Exposed Amount of bleeding with debridement: Mild Bleeding Controlled with: Pressure Patient tolerated procedure well Assessment/Plan Active Problems (Last Reviewed 02/20/20 @ 11:36 by Winnie Corona) Non-healing surgical wound (Chronic) Left Great Toe ( Dorsum and Plantar ) Diabetes mellitus (Chronic) Assessment: Same as above. Plan: Debridement done as documented above. Procedure was well-tolerated. Left plantar wound still with no significant improvement. Cultures taken. Continue Pomogran daily with Adaptic over top to plantar wound. Double layer Tubigrip for edema management. Optimal diabetes control, increased fluid intake and offloading recommended. His questions were answered and he was advised to call with any further questions or concerns. Follow-up in 1 week. This note was generated with [employer] software. It may contain incorrect words, spelling, and punctuation that were not noted in checking the note before signing. [id number]: [id number] Vannessa subq tissue 20 sq cm/<
[2020-05-29 09:00] VITALS: BP 151/85; PULSE 73; RESP 18; TEMP 35.9; BMI 30.2
--- NOTE | 2020-05-29 09:34 | PN.PCM_ITS ---
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 Surgery was on 25 March and per patient was uneventful however has had delayed healing of his surgical wound. He has been on a 3-week course of doxycycline and is currently on levofloxacin and has been applying antibiotic ointment daily. History of diabetes mellitus and per patient his last A1c was 7.6. He reports compliance with his medication. Denies chills, fever or otherwise feeling of unwell at this time. Progress of Wound: Left dorsal stays healed, plantar with no significant change. Now approved for epi-fix. - Physical Exam Vital Signs Temp Pulse Resp BP 96.7 F L 73 18 151/85 H 05/29/20 09:00 05/29/20 09:00 05/29/20 09:00 05/29/20 09:00 General: Alert, Oriented x3, Cooperative, No apparent distress HEENT: Atraumatic, Normocephalic Oral: Moist Mucosa Neck: Supple Lungs: Normal air movement Extremities: No cyanosis Skin: Ulcer/ Wound Wound Measurements and Assessment WC - Nurse 1 - General Ulcer Measurement Start: 05/22/20 11:20 Freq: Status: Active Protocol: Activity Type Activity Date Activity User E-Sign Co-Sign Detail Recorded Client Recorded Date Recorded By Document 05/29/20 09:00 RB [id number] 05/29/20 09:02 RB 05/29/20 09:00 Wound Center Nurse 1 [Ulcer Assessment] 2. L plantar foot medial -Combined with other wound No -Current Size (cm) - Length 0.6 -Current Size (cm) - Width 0.5 -Current Size (cm) - Depth 0.4 -Total Square Cm 0.30 -Photo Taken No -Tunneling No -Undermining/Tunneling Yes -Undermining/Tunneling Starts (O' 12 clock) -Undermining/Tunneling Ends (O'clock) 12 -Maximum Distance (cm) 0.2 -Circular Undermining Yes -Exudate Amt Small -Exudate Type Serosanguineous -Wound Margin Thickened -Granulation Amt Medium (34-66%) -Granulation Quality [place] -Slough/Fibrin Yes -Necrosis Amt Small (1-33%) -Necrotic Tissue Type Adherent Slough -Structure Exposed N/A -Texture (Angie-wound Skin Appearance) Callus -Moisture (Angie-wound Skin Appearance Assessed ) -Color (Angie-wound Skin Appearance) Assessed -Temperature (Angie-wound Skin No Abnormality Appearance) (Pt Warm) -Tenderness on Palpation (Angie-wound No Skin Appearance) -Ulcer Cleansing Wound Cleanser -Foul Odor after Cleansing No -Anesthetic Used 4% Lidocaine Solution [Edema Assessment] -Lower Limb Edema Present Yes -Left Calf (cm) 41.2 -Left Ankle (cm) 25 WC - Nurse 2 - General Ulcer CM Notes Start: 05/22/20 11:20 Freq: Status: Active Protocol: Activity Type Activity Date Activity User E-Sign Co-Sign Detail Recorded Client Recorded Date Recorded By Document 05/29/20 09:13 MW [id number] 05/29/20 09:21 MW 05/29/20 09:13 Wound Center Nurse 2 [Procedure/Treatment] 2. L plantar foot medial -Time 09:18 -Correct Patient Yes -Correct Side, Site, Position Yes -Correct Procedure Yes -Procedure Performed Yes -Type of Procedure Debridement -Clinical Debridement Subcutaneous -Post Debridement Size (cm) - Length 0.8 -Post Debridement Size (cm) - Width 0.6 -Post Debridement Size (cm) - Depth 0.4 -Total Square Cm 0.48 -Wound/Ulcer Outcome Not Healed -Ulcer Cleansing Rinsed/ Irrigated with Saline -Foul Odor after Cleansing No -Bioengineered Tissue Yes -Type of bioengineered Tissue EPIFIX -Expiration Date 12/15/24 -Product Lot Number [id number] -Percent Used 100 -Saline Lot Number [id number] -Bleeding Controlled with Pressure -Offloading No -Treatment Response Procedure Tolerated Well [See Physician Procedure note for Specifics] Pain Scale: 0-10 Numeric [Pain] -Is Patient Pain Free? Yes Musculoskeletal: No Muscle Wasting Neurological: Cranial nerves II-XII grossly intact Psych/Mental Status: Normal Affect Debridement Note Post-Debridement Measurements/Treatment WC - Nurse 2 - General Ulcer CM Notes Start: 05/22/20 11:20 Freq: Status: Active Protocol: Activity Type Activity Date Activity User E-Sign Co-Sign Detail Recorded Client Recorded Date Recorded By Document 05/22/20 11:29 MW [id number] 05/22/20 11:38 MW Document 05/29/20 09:13 MW [id number] 05/29/20 09:21 MW 05/22/20 05/29/20 11:29 09:13 Wound Center Nurse 2 2. L plantar foot medial -Time 11:34 09:18 -Correct Patient Yes Yes -Correct Side, Site, Position Yes Yes -Correct Procedure Yes Yes -Procedure Performed No Yes -Type of Procedure Debridement -Clinical Debridement Subcutaneous -Post Debridement Size (cm) - Length 0.8 0.8 -Post Debridement Size (cm) - Width 0.6 0.6 -Post Debridement Size (cm) - Depth 0.4 0.4 -Total Square Cm 0.48 0.48 -Wound/Ulcer Outcome Not Healed Not Healed -Ulcer Cleansing Rinsed/ Rinsed/ Irrigated with Irrigated with Saline Saline -Foul Odor after Cleansing No No -Bioengineered Tissue No Yes -Type of bioengineered Tissue EPIFIX -Expiration Date 12/15/24 -Product Lot Number [id number] -Percent Used 100 -Saline Lot Number [id number] -Bleeding Controlled with Pressure Pressure -Offloading No No -Treatment Response Procedure Procedure Tolerated Well Tolerated Well 1. left dorsal great toe -Time 11:33 -Correct Patient Yes -Correct Side, Site, Position Yes -Correct Procedure Yes -Procedure Performed No -Post Debridement Size (cm) - Length 0 -Post Debridement Size (cm) - Width 0 -Post Debridement Size (cm) - Depth 0 -Total Square Cm 0 -Wound/Ulcer Outcome Healed- Epithelialized Pain Scale: 0-10 Numeric Is Patient Pain Free? Yes Yes Wound debrided: Left Great Toe (Plantar) Type of Debridement: Excisional debridement Anesthesia Used: 4% Lidocaine Solution Depth: Down to and including healthy tissue, in the subcutaneous layer Instrument Used: 3mm curette Tissue Removed: Slough and devitalized tissue Severity: Fat Layer Exposed Amount of bleeding with debridement: Mild Bleeding Controlled with: Pressure Patient tolerated procedure well Assessment/Plan Active Problems (Last Reviewed 02/20/20 @ 11:36 by Winnie Corona) Non-healing surgical wound (Chronic) Left Great Toe ( Dorsum and Plantar ) Diabetes mellitus (Chronic) Assessment: Same as above. Plan: Debridement done as documented above. Procedure was well-tolerated. Again, no significant improvement. Initial application of epi-fix done today using 100% of product. Moistened with saline. Wound veil over top and Steri- Strips to hold in place. Advised to keep in place for a week. May change outer dressing if drainage is noted. Continue double layer Tubigrip for edema management. Optimal diabetes control, increased fluid intake and offloading recommended. His questions were answered and he was advised to call with any further questions or concerns. Follow-up in 1 week. This note was generated with [employer] dictation software. It may contain incorrect words, spelling, and punctuation that were not noted in checking the note before signing. [id number]: [id number] Skin sub graft trnk/arm/leg
[2020-06-05 10:31] VITALS: BP 159/70; PULSE 81; RESP 18; TEMP 36.3; BMI 30.2
--- NOTE | 2020-06-05 11:41 | PCM.WC.PN ---
(1) Non-healing surgical wound Status: Chronic Current Visit: Yes Code(s): T81.89XA - Other complications of procedures, not elsewhere classified, initial encounter Comment: Left Great Toe ( Dorsum and Plantar ) (2) Diabetes mellitus Status: Chronic Current Visit: Yes Qualifiers: Diabetes mellitus type: type 2 Code(s): E11.9 - Type 2 diabetes mellitus without complications Type of Wound Date of Service: 06/05/20 Chief Complaint: Non healing Left Great Toe Surgical wound History of Wound: Mr Hatch Was referred here by his adult crossing guard due to nonhealing left great toe wound status post surgery. Surgery was on 25 March and per patient was uneventful however has had delayed healing of his surgical wound. He has been on a 3-week course of doxycycline and is currently on levofloxacin and has been applying antibiotic ointment daily. History of diabetes mellitus and per patient his last A1c was 7.6. He reports compliance with his medication. Denies chills, fever or otherwise feeling of unwell at this time. Progress of Wound: Recently managed for left foot cellulitis. Has had 1 application of epi fix so far. - Physical Exam Vital Signs Temp Pulse Resp BP 97.4 F L 81 18 159/70 H 06/05/20 10:31 06/05/20 10:31 06/05/20 10:31 06/05/20 10:31 General: Alert, Oriented x3, Cooperative, No apparent distress HEENT: Atraumatic, Normocephalic Oral: Moist Mucosa Neck: Supple Lungs: Normal air movement Extremities: No cyanosis, Edema Skin: Ulcer/ Wound Wound Measurements and Assessment WC - Nurse 1 - General Ulcer Measurement Start: 05/22/20 11:20 Freq: Status: Active Protocol: Activity Type Activity Date Activity User E-Sign Co-Sign Detail Recorded Client Recorded Date Recorded By Document 06/05/20 10:31 [facility] [id number] 06/05/20 10:35 [facility] 06/05/20 10:31 Wound Center Nurse 1 [Ulcer Assessment] 2. L plantar foot medial -Combined with other wound No -Current Size (cm) - Length 0.5 -Current Size (cm) - Width 0.5 -Current Size (cm) - Depth 0.4 -Total Square Cm 0.25 -Photo Taken No -Epithelialization Small 1-33% -Tunneling No -Undermining/Tunneling Yes -Undermining/Tunneling Starts (O' 12 clock) -Undermining/Tunneling Ends (O'clock) 5 -Maximum Distance (cm) 0.4 -Circular Undermining No -Exudate Amt Small -Exudate Type Serosanguineous -Wound Margin Distinct, Outline Attached -Granulation Amt Large (67-100%) -Granulation Quality Red -Slough/Fibrin Yes -Necrosis Amt Small (1-33%) -Necrotic Tissue Type Adherent Slough -Texture (Angie-wound Skin Appearance) Assessed,Callus ,Scarring -Moisture (Angie-wound Skin Appearance Assessed ) -Color (Angie-wound Skin Appearance) Assessed -Temperature (Angie-wound Skin No Abnormality Appearance) (Pt Warm) -Tenderness on Palpation (Angie-wound No Skin Appearance) -Ulcer Cleansing SOAPY WATER -Foul Odor after Cleansing No -Anesthetic Used 5% Lidocaine Gel [Edema Assessment] -Lower Limb Edema Present Yes -Right Calf (cm) 41.4 -Right Ankle (cm) 26.4 WC - Nurse 2 - General Ulcer CM Notes Start: 05/22/20 11:20 Freq: Status: Active Protocol: Activity Type Activity Date Activity User E-Sign Co-Sign Detail Recorded Client Recorded Date Recorded By Document 06/05/20 10:52 [id number] 06/05/20 11:03 06/05/20 10:52 Wound Center Nurse 2 [Procedure/Treatment] 2. L plantar foot medial -Time 10:53 -Correct Patient Yes -Correct Side, Site, Position Yes -Correct Procedure Yes -Procedure Performed Yes -Type of Procedure Debridement -Clinical Debridement Subcutaneous -Post Debridement Size (cm) - Length 0.6 -Post Debridement Size (cm) - Width 0.6 -Post Debridement Size (cm) - Depth 0.4 -Total Square (cm) 0.36 -Wound/Ulcer Outcome Not Healed -Ulcer Cleansing Rinsed/ Irrigated with Saline -Foul Odor after Cleansing No -Bioengineered Tissue Yes -Type of bioengineered Tissue EPIFIX -Expiration Date 12/15/24 -Product Lot Number [id number] -Percent Used 100 -Saline Lot Number [id number] -Bleeding Controlled with Pressure -Offloading No -Treatment Response Procedure Tolerated Well [See Physician Procedure note for Specifics] Pain Scale: 0-10 Numeric [Pain] -Is Patient Pain Free? Yes Musculoskeletal: No Muscle Wasting Neurological: Cranial nerves II-XII grossly intact Psych/Mental Status: Normal Affect Debridement Note Post-Debridement Measurements/Treatment WC - Nurse 2 - General Ulcer CM Notes Start: 05/22/20 11:20 Freq: Status: Active Protocol: Activity Type Activity Date Activity User E-Sign Co-Sign Detail Recorded Client Recorded Date Recorded By Document 05/22/20 11:29 MW [id number] 05/22/20 11:38 MW Document 05/29/20 09:13 MW [id number] 05/29/20 09:21 MW Document 06/05/20 10:52 JF [id number] 06/05/20 11:03 JF 05/22/20 05/29/20 06/05/20 11:29 09:13 10:52 Wound Center Nurse 2 2. L plantar foot medial -Time 11:34 09:18 10:53 -Correct Patient Yes Yes Yes -Correct Side, Site, Position Yes Yes Yes -Correct Procedure Yes Yes Yes -Procedure Performed No Yes Yes -Type of Procedure Debridement Debridement -Clinical Debridement Subcutaneous Subcutaneous -Post Debridement Size (cm) - Length 0.8 0.8 0.6 -Post Debridement Size (cm) - Width 0.6 0.6 0.6 -Post Debridement Size (cm) - Depth 0.4 0.4 0.4 -Total Square (cm) 0.48 0.48 0.36 -Wound/Ulcer Outcome Not Healed Not Healed Not Healed -Ulcer Cleansing Rinsed/ Rinsed/ Rinsed/ Irrigated with Irrigated with Irrigated with Saline Saline Saline -Foul Odor after Cleansing No No No -Bioengineered Tissue No Yes Yes -Type of bioengineered Tissue EPIFIX EPIFIX -Expiration Date 12/15/24 12/15/24 -Product Lot Number [id number] -Percent Used 100 100 -Saline Lot Number [id number] -Bleeding Controlled with Pressure Pressure Pressure -Offloading No No No -Treatment Response Procedure Procedure Procedure Tolerated Well Tolerated Well Tolerated Well 1. left dorsal great toe -Time 11:33 -Correct Patient Yes -Correct Side, Site, Position Yes -Correct Procedure Yes -Procedure Performed No -Post Debridement Size (cm) - Length 0 -Post Debridement Size (cm) - Width 0 -Post Debridement Size (cm) - Depth 0 -Total Square (cm) 0 -Wound/Ulcer Outcome Healed- Epithelialized Pain Scale: 0-10 Numeric Is Patient Pain Free? Yes Yes Yes Wound debrided: Left plantar Type of Debridement: Excisional debridement Anesthesia Used: 4% Lidocaine Solution Depth: Down to and including healthy tissue, in the subcutaneous layer Percentage of wound debrided: 100 Instrument Used: 3mm curette Tissue Removed: Slough and devitalized tissue Severity: Fat Layer Exposed Amount of bleeding with debridement: Mild Bleeding Controlled with: Pressure Patient tolerated procedure well Assessment/Plan Active Problems (Last Reviewed 05/30/20 @ 08:41 by Olga Hammond) Non-healing surgical wound (Chronic) Left Great Toe ( Dorsum and Plantar ) Diabetes mellitus (Chronic) Assessment: Same as above. Plan: Debridement done as documented above. Procedure was well-tolerated. 2nd application of epi-fix done today using 100% of product. Moistened with saline. Adaptic touch over top and Steri-Strips to hold in place. Advised to keep in place for a week. May change outer dressing if drainage is noted. Continue double layer Tubigrip for edema management. Optimal diabetes control, increased fluid intake and offloading recommended. His questions were answered and he was advised to call with any further questions or concerns. Follow-up in 1 week. This note was generated with [employer] dictation software. It may contain incorrect words, spelling, and punctuation that were not noted in checking the note before signing. [id number]: [id number] Skin sub graft trnk/arm/leg
[2020-06-12 10:40] VITALS: BP 151/79; PULSE 70; RESP 16; TEMP 36.3; O2SAT 97; BMI 30.2
--- NOTE | 2020-06-12 11:49 | PCM.WC.PN ---
(1) Non-healing surgical wound Status: Chronic Current Visit: Yes Code(s): T81.89XA - Other complications of procedures, not elsewhere classified, initial encounter Comment: Left Great Toe ( Dorsum and Plantar ) (2) Diabetes mellitus Status: Chronic Current Visit: Yes Qualifiers: Diabetes mellitus type: type 2 Code(s): E11.9 - Type 2 diabetes mellitus without complications Type of Wound Date of Service: 06/12/20 Chief Complaint: Non healing Left Great Toe Surgical wound History of Wound: Mr Hatch Was referred here by his highway engineering technician due to nonhealing left great toe wound status post surgery. Surgery was on 25 March and per patient was uneventful however has had delayed healing of his surgical wound. He has been on a 3-week course of doxycycline and is currently on levofloxacin and has been applying antibiotic ointment daily. History of diabetes mellitus and per patient his last A1c was 7.6. He reports compliance with his medication. Denies chills, fever or otherwise feeling of unwell at this time. Progress of Wound: Imoroving depth. No new concerns at this time. - Physical Exam Vital Signs Temp Pulse Resp BP Pulse Ox 97.4 F L 70 16 151/79 H 97 06/12/20 10:40 06/12/20 10:40 06/12/20 10:40 06/12/20 10:40 06/12/20 10:40 General: Alert, Oriented x3, Cooperative, No apparent distress HEENT: Atraumatic, Normocephalic Oral: Moist Mucosa Neck: Supple Lungs: Normal air movement Extremities: No cyanosis Skin: Ulcer/ Wound Wound Measurements and Assessment WC - Nurse 1 - General Ulcer Measurement Start: 05/22/20 11:20 Freq: Status: Active Protocol: Activity Type Activity Date Activity User E-Sign Co-Sign Detail Recorded Client Recorded Date Recorded By Document 06/12/20 10:40 IA [id number] 06/12/20 10:46 IA 06/12/20 10:40 Wound Center Nurse 1 [Ulcer Assessment] 2. L plantar foot medial -Current Size (cm) - Length 0.6 -Current Size (cm) - Width 0.7 -Current Size (cm) - Depth 0.1 -Total Square Cm 0.42 -Exudate Amt Small -Exudate Type Serosanguineous -Wound Margin Thickened & Rolled Under -Granulation Amt Small (1-33%) -Granulation Quality Pale,[place] -Necrosis Amt Large (67-100%) -Necrotic Tissue Type Adherent Slough -Texture (Angie-wound Skin Appearance) Assessed,Callus -Moisture (Angie-wound Skin Appearance Assessed ) -Color (Angie-wound Skin Appearance) Assessed -Temperature (Angie-wound Skin No Abnormality Appearance) (Pt Warm) -Tenderness on Palpation (Angie-wound No Skin Appearance) -Ulcer Cleansing Rinsed/ Irrigated with Saline -Foul Odor after Cleansing No -Anesthetic Used 5% Lidocaine Gel [Edema Assessment] -Lower Limb Edema Present Yes -Right Calf (cm) 41.4 -Right Ankle (cm) 26.4 WC - Nurse 2 - General Ulcer CM Notes Start: 05/22/20 11:20 Freq: Status: Active Protocol: Activity Type Activity Date Activity User E-Sign Co-Sign Detail Recorded Client Recorded Date Recorded By Document 06/12/20 11:00 MW [id number] 06/12/20 11:07 MW 06/12/20 11:00 Wound Center Nurse 2 [Procedure/Treatment] 2. L plantar foot medial -Time 11:01 -Correct Patient Yes -Correct Side, Site, Position Yes -Correct Procedure Yes -Procedure Performed Yes -Type of Procedure Debridement -Clinical Debridement Subcutaneous -Post Debridement Size (cm) - Length 0.7 -Post Debridement Size (cm) - Width 0.7 -Post Debridement Size (cm) - Depth 0.2 -Total Square (cm) 0.49 -Wound/Ulcer Outcome Not Healed -Ulcer Cleansing Rinsed/ Irrigated with Saline -Foul Odor after Cleansing No -Bioengineered Tissue Yes -Type of bioengineered Tissue EPIFIX -Expiration Date 02/12/25 -Product Lot Number [id number] -Percent Used 100 -Saline Lot Number [id number] -Bleeding Controlled with Pressure -Offloading No -Treatment Response Procedure Tolerated Well [See Physician Procedure note for Specifics] Pain Scale: 0-10 Numeric [Pain] -Is Patient Pain Free? Yes Musculoskeletal: No Muscle Wasting Neurological: Cranial nerves II-XII grossly intact Psych/Mental Status: Normal Affect Debridement Note Post-Debridement Measurements/Treatment WC - Nurse 2 - General Ulcer CM Notes Start: 05/22/20 11:20 Freq: Status: Active Protocol: Activity Type Activity Date Activity User E-Sign Co-Sign Detail Recorded Client Recorded Date Recorded By Document 05/22/20 11:29 MW [id number] 05/22/20 11:38 MW Document 05/29/20 09:13 MW [id number] 05/29/20 09:21 MW Document 06/05/20 10:52 JF [id number] 06/05/20 11:03 JF Document 06/12/20 11:00 MW [id number] 06/12/20 11:07 MW 05/22/20 05/29/20 06/05/20 11:29 09:13 10:52 Wound Center Nurse 2 2. L plantar foot medial -Time 11:34 09:18 10:53 -Correct Patient Yes Yes Yes -Correct Side, Site, Position Yes Yes Yes -Correct Procedure Yes Yes Yes -Procedure Performed No Yes Yes -Type of Procedure Debridement Debridement -Clinical Debridement Subcutaneous Subcutaneous -Post Debridement Size (cm) - Length 0.8 0.8 0.6 -Post Debridement Size (cm) - Width 0.6 0.6 0.6 -Post Debridement Size (cm) - Depth 0.4 0.4 0.4 -Total Square (cm) 0.48 0.48 0.36 -Wound/Ulcer Outcome Not Healed Not Healed Not Healed -Ulcer Cleansing Rinsed/ Rinsed/ Rinsed/ Irrigated with Irrigated with Irrigated with Saline Saline Saline -Foul Odor after Cleansing No No No -Bioengineered Tissue No Yes Yes -Type of bioengineered Tissue EPIFIX EPIFIX -Expiration Date 12/15/24 12/15/24 -Product Lot Number [id number] -Percent Used 100 100 -Saline Lot Number [id number] -Bleeding Controlled with Pressure Pressure Pressure -Offloading No No No -Treatment Response Procedure Procedure Procedure Tolerated Well Tolerated Well Tolerated Well 1. left dorsal great toe -Time 11:33 -Correct Patient Yes -Correct Side, Site, Position Yes -Correct Procedure Yes -Procedure Performed No -Post Debridement Size (cm) - Length 0 -Post Debridement Size (cm) - Width 0 -Post Debridement Size (cm) - Depth 0 -Total Square (cm) 0 -Wound/Ulcer Outcome Healed- Epithelialized Pain Scale: 0-10 Numeric Is Patient Pain Free? Yes Yes Yes 06/12/20 11:00 Wound Center Nurse 2 2. L plantar foot medial -Time 11:01 -Correct Patient Yes -Correct Side, Site, Position Yes -Correct Procedure Yes -Procedure Performed Yes -Type of Procedure Debridement -Clinical Debridement Subcutaneous -Post Debridement Size (cm) - Length 0.7 -Post Debridement Size (cm) - Width 0.7 -Post Debridement Size (cm) - Depth 0.2 -Total Square (cm) 0.49 -Wound/Ulcer Outcome Not Healed -Ulcer Cleansing Rinsed/ Irrigated with Saline -Foul Odor after Cleansing No -Bioengineered Tissue Yes -Type of bioengineered Tissue EPIFIX -Expiration Date 02/12/25 -Product Lot Number [id number] -Percent Used 100 -Saline Lot Number [id number] -Bleeding Controlled with Pressure -Offloading No -Treatment Response Procedure Tolerated Well 1. left dorsal great toe -Time -Correct Patient -Correct Side, Site, Position -Correct Procedure -Procedure Performed -Post Debridement Size (cm) - Length -Post Debridement Size (cm) - Width -Post Debridement Size (cm) - Depth -Total Square (cm) -Wound/Ulcer Outcome Pain Scale: 0-10 Numeric Is Patient Pain Free? Yes Wound debrided: Left Great Toe ( Plantar ) Type of Debridement: Excisional debridement Anesthesia Used: 4% Lidocaine Solution Depth: Down to and including healthy tissue, in the subcutaneous layer Percentage of wound debrided: 100 Instrument Used: 3mm curette Tissue Removed: Slough and devitalized tissue Severity: Fat Layer Exposed Amount of bleeding with debridement: Mild Bleeding Controlled with: Pressure Patient tolerated procedure well Assessment/Plan Active Problems (Last Reviewed 05/30/20 @ 08:41 by Olga Hammond) Non-healing surgical wound (Chronic) Left Great Toe ( Dorsum and Plantar ) Diabetes mellitus (Chronic) Assessment: Same as above. Plan: Debridement done as documented above. Procedure was well-tolerated. Improving depth. 3rd application of epi-fix done today using 100% of product. Moistened with saline. Adaptic touch over top and Steri-Strips to hold in place. Advised to keep in place for a week. May change outer dressing if drainage is noted. Continue double layer Tubigrip for edema management. Optimal diabetes control, increased fluid intake and offloading recommended. His questions were answered and he was advised to call with any further questions or concerns. Follow-up in 1 week. This note was generated with [employer] software. It may contain incorrect words, spelling, and punctuation that were not noted in checking the note before signing. [id number]: [id number] Skin sub graft trnk/arm/leg
== END 2020-06-13 23:59 ==
LOC: WC 10:30
PROVIDERS: PCP Family Medicine; Visit Provider Internal Medicine
DX: T81.89XA Other complications of procedures, not elsewhere classified, initial encounter (principal); E11.9 Type 2 diabetes mellitus without complications
CPT/HCPCS: 11042; 15275; 87070; 87075; 87077; 87186; 87205; Q4186

== ENCOUNTER 2020-06-16 12:23 | Outpatient (RCR) | payer MEDICARE, OTHER, SELFPAY ==
[2019-08-17 11:06] VITALS: BMI 30.3
[2020-06-14 00:34] VITALS: BMI 31.6
[2020-06-16 14:01] LABS: Erythrocyte Sedimentation Rate 28 mm/hr (0-20)
[2020-06-16 14:02] LABS: Absolute Lymphocyte Count 1.69 X10^3/uL (0.83-4.51); Basophil# 0.07 X10^3/uL; Basophil% 0.8 % (0-1); Eosinophil# 0.94 X10^3/uL; Hematocrit 40.4 % (40-54); Hemoglobin 13.6 g/dL (13.0-16.5); Lymphocyte # 1.69 X10^3/ul (4.0); Lymphocyte % 19.9 % (19-41); Mean Corp Hgb Conc 33.7 g/dL (32-36); Mean Corpuscular Hgb 31.5 pg (27.0-32.0); Mean Corpuscular Volume 93.5 fL (80-94); Mean Platelet Vol. 10.3 fl (6.2-12.0); Monocyte# 0.76 X10^3/uL; Monocyte% 8.9 % (0-10); NRBC Flagged by Analyzer 0 % (0-5); Neutrophil # 4.97 X10^3/uL (2.7-7.7); Neutrophil % 58.5 % (47-70); Platelet Count 438 K/mm3 (150-450); RBC Distribution Width CV 13.5 % (11.6-14.6); RBC Distribution Width SD 45.6 fl (35.1-43.9); Red Blood Count 4.32 M/mm3 (4.6-6.2); White Blood Count 8.5 K/mm3 (4.4-11.0)
[2020-06-16 14:25] LABS: AST(SGOT) 26 U/L (15-37); Alanine Aminotransfer ALT/SGPT 37 U/L (16-61); CRP < 2.90 mg/L (0.0-3.0); Creatinine, Serum 1.31 mg/dL (0.70-1.30); EST Glomerular Filtration Rate 56 mL/min (>60); Est Glom Filt Rate - Afr Amer 68 mL/min (>60)
== END 2020-07-14 18:00 | disposition home or self-care (01) ==
LOC: LAB 12:23
PROVIDERS: Family Provider Family Medicine; PCP Family Medicine; Referring Provider Internal Medicine Rheumatology; Visit Provider Internal Medicine Rheumatology
DX: L40.50 Arthropathic psoriasis, unspecified (principal); L40.52 Psoriatic arthritis mutilans; L40.3 Pustulosis palmaris et plantaris; L85.3 Xerosis cutis; L21.9 Seborrheic dermatitis, unspecified; L30.9 Dermatitis, unspecified; M50.90 Cervical disc disorder, unspecified, unspecified cervical region; M17.0 Bilateral primary osteoarthritis of knee; L40.9 Psoriasis, unspecified; Z79.1 Long term (current) use of non-steroidal anti-inflammatories (NSAID); Z79.899 Other long term (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
CPT/HCPCS: 36415; 82565; 84450; 84460; 85025; 85652; 86140

== ENCOUNTER → 2020-06-20 10:28 | Outpatient (CLI) | payer MEDICARE, OTHER, SELFPAY ==
[2020-02-20 11:30] VITALS: BMI 31.1
[2020-06-19 10:55] VITALS: BMI 31.6
[2020-06-20 10:35] VITALS: BP 146/83; PULSE 60; RESP 18; TEMP 36.6; O2SAT 98; BMI 25.6
[2020-06-20] MEDS: 0.9% NaCl Peripheral Flush Adult/Peds IV (10:42)
[2020-06-20] MEDS: 0.9% NaCl IVPB Med Flush (250 mL) 15 ML IV (10:57)
[2020-06-20] MEDS: DiphenhydrAMINE 50 MG/ML Syringe 12.5 MG IV (10:57)
[2020-06-20 14:12] VITALS: BP 149/78; PULSE 78; RESP 18
== END ==
PROVIDERS: PCP Family Medicine; Referring Provider Family Medicine; Visit Provider Family Medicine
DX: L40.52 Psoriatic arthritis mutilans (principal); Z79.899 Other long term (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
CPT/HCPCS: 96375; 96413; 96415; J7050; A4216; Q5103

== ENCOUNTER 2020-07-10 10:00 | Outpatient (RCR) | payer MEDICARE, OTHER, SELFPAY ==
[2020-06-14 00:34] VITALS: BMI 31.6
[2020-06-19 10:55] VITALS: BP 156/66; PULSE 66; RESP 20; TEMP 36.6; BMI 31.6
--- NOTE | 2020-06-19 12:32 | PCM.WC.PN ---
(1) Non-healing surgical wound Status: Chronic Current Visit: Yes Code(s): T81.89XA - Other complications of procedures, not elsewhere classified, initial encounter Comment: Left Great Toe ( Dorsum and Plantar ) (2) Diabetes mellitus Status: Chronic Current Visit: Yes Qualifiers: Diabetes mellitus type: type 2 Code(s): E11.9 - Type 2 diabetes mellitus without complications Type of Wound Date of Service: 06/19/20 Chief Complaint: Non healing Left Great Toe Surgical wound History of Wound: Mr Hatch Was referred here by his glassie due to nonhealing left great toe wound status post surgery. Surgery was on 25 March and per patient was uneventful however has had delayed healing of his surgical wound. He has been on a 3-week course of doxycycline and is currently on levofloxacin and has been applying antibiotic ointment daily. History of diabetes mellitus and per patient his last A1c was 7.6. He reports compliance with his medication. Denies chills, fever or otherwise feeling of unwell at this time. Progress of Wound: Stable. No new concerns at this time. - Physical Exam Vital Signs Temp Pulse Resp BP 97.8 F 66 20 H 156/66 H 06/19/20 10:55 06/19/20 10:55 06/19/20 10:55 06/19/20 10:55 General: Alert, Oriented x3, Cooperative, No apparent distress HEENT: Atraumatic, Normocephalic Oral: Moist Mucosa Neck: Supple Lungs: Normal air movement Extremities: No cyanosis Skin: Ulcer/ Wound Wound Measurements and Assessment WC - Nurse 1 - General Ulcer Measurement Start: 06/19/20 10:55 Freq: Status: Active Protocol: Activity Type Activity Date Activity User E-Sign Co-Sign Detail Recorded Client Recorded Date Recorded By Document 06/19/20 10:55 DL [id number] 06/19/20 11:01 DL 06/19/20 10:55 Wound Center Nurse 1 [Ulcer Assessment] 2. L plantar foot medial -Current Size (cm) - Length 0.7 -Current Size (cm) - Width 0.7 -Current Size (cm) - Depth 0.2 -Total Square Cm 0.49 -Photo Taken No -Exudate Amt Medium -Exudate Type Serosanguineous -Wound Margin Thickened -Granulation Amt Large (67-100%) -Granulation Quality [place] -Necrosis Amt Small (1-33%) -Necrotic Tissue Type Adherent Slough -Structure Exposed N/A -Texture (Angie-wound Skin Appearance) Callus -Moisture (Angie-wound Skin Appearance Maceration ) -Color (Angie-wound Skin Appearance) No Abnormality, Rubor -Temperature (Angie-wound Skin No Abnormality Appearance) (Pt Warm) -Tenderness on Palpation (Angie-wound No Skin Appearance) -Ulcer Cleansing Rinsed/ Irrigated with Saline -Foul Odor after Cleansing No -Anesthetic Used 4% Lidocaine Solution [Edema Assessment] -Left Calf (cm) 40 -Left Ankle (cm) 24 WC - Nurse 2 - General Ulcer CM Notes Start: 06/19/20 10:55 Freq: Status: Active Protocol: Activity Type Activity Date Activity User E-Sign Co-Sign Detail Recorded Client Recorded Date Recorded By Document 06/19/20 11:20 MW [id number] 06/19/20 11:29 MW 06/19/20 11:20 Wound Center Nurse 2 [Procedure/Treatment] 2. L plantar foot medial -Time 11:20 -Correct Patient Yes -Correct Side, Site, Position Yes -Correct Procedure Yes -Procedure Performed Yes -Type of Procedure Debridement -Clinical Debridement Subcutaneous -Post Debridement Size (cm) - Length 0.5 -Post Debridement Size (cm) - Width 0.7 -Post Debridement Size (cm) - Depth 0.2 -Total Square (cm) 0.35 -Wound/Ulcer Outcome Not Healed -Ulcer Cleansing Rinsed/ Irrigated with Saline -Foul Odor after Cleansing No -Bioengineered Tissue Yes -Type of bioengineered Tissue EPIFIX -Expiration Date 02/12/25 -Product Lot Number [id number] -Percent Used 100 -Saline Lot Number [id number] -Bleeding Controlled with Pressure -Offloading No -Treatment Response Procedure Tolerated Well [See Physician Procedure note for Specifics] Pain Scale: 0-10 Numeric [Pain] -Is Patient Pain Free? Yes Musculoskeletal: No Muscle Wasting Neurological: Cranial nerves II-XII grossly intact Psych/Mental Status: Normal Affect Debridement Note Post-Debridement Measurements/Treatment WC - Nurse 2 - General Ulcer CM Notes Start: 06/19/20 10:55 Freq: Status: Active Protocol: Activity Type Activity Date Activity User E-Sign Co-Sign Detail Recorded Client Recorded Date Recorded By Document 06/19/20 11:20 MW [id number] 06/19/20 11:29 MW 06/19/20 11:20 Wound Center Nurse 2 2. L plantar foot medial -Time 11:20 -Correct Patient Yes -Correct Side, Site, Position Yes -Correct Procedure Yes -Procedure Performed Yes -Type of Procedure Debridement -Clinical Debridement Subcutaneous -Post Debridement Size (cm) - Length 0.5 -Post Debridement Size (cm) - Width 0.7 -Post Debridement Size (cm) - Depth 0.2 -Total Square (cm) 0.35 -Wound/Ulcer Outcome Not Healed -Ulcer Cleansing Rinsed/ Irrigated with Saline -Foul Odor after Cleansing No -Bioengineered Tissue Yes -Type of bioengineered Tissue EPIFIX -Expiration Date 02/12/25 -Product Lot Number [id number] -Percent Used 100 -Saline Lot Number [id number] -Bleeding Controlled with Pressure -Offloading No -Treatment Response Procedure Tolerated Well Pain Scale: 0-10 Numeric Is Patient Pain Free? 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 Plan: Debridement done as documented above. Procedure was well-tolerated. Improving. 4thapplication of epi-fix done today using 100% of product. Moistened with saline. Adaptic touch over top and Steri-Strips to hold in place. Advised to keep in place for a week. May change outer dressing if drainage is noted. Continue double layer Tubigrip for edema management. Optimal diabetes control, increased fluid intake and offloading recommended. His questions were answered and he was advised to call with any further questions or concerns. Follow-up in 1 week. This note was generated with [employer] software. It may contain incorrect words, spelling, and punctuation that were not noted in checking the note before signing. [id number]: [id number] Skin sub graft trnk/arm/leg
[2020-06-25 09:31] VITALS: BP 164/69; PULSE 61; RESP 18; TEMP 36.3; BMI 31.6
--- NOTE | 2020-06-25 10:04 | PCM.WC.PN ---
(1) Diabetes mellitus Status: Chronic Current Visit: Yes Qualifiers: Diabetes mellitus type: type 2 Code(s): E11.9 - Type 2 diabetes mellitus without complications (2) Non-healing surgical wound Status: Chronic Current Visit: Yes Code(s): T81.89XA - Other complications of procedures, not elsewhere classified, initial encounter Comment: Left Great Toe ( Dorsum and Plantar ) (3) Diabetic foot ulcer associated with type 2 diabetes mellitus Status: Acute Current Visit: Yes Code(s): E11.621 - Type 2 diabetes mellitus with foot ulcer; L97.509 - Non-pressure chronic ulcer of other part of unspecified foot with unspecified severity (4) Decubitus ulcer limited to breakdown of skin (stage 2) Status: Acute Current Visit: Yes Qualifiers: Laterality: right Code(s): L89.92 - Pressure ulcer of unspecified site, stage 2 Type of Wound Date of Service: 06/25/20 Chief Complaint: Non healing Left Great Toe Surgical wound History of Wound: Mr Hatch Was referred here by his application services manager due to nonhealing left great toe wound status post surgery. Surgery was on 25 March and per patient was uneventful however has had delayed healing of his surgical wound. He has been on a 3-week course of doxycycline and is currently on levofloxacin and has been applying antibiotic ointment daily. History of diabetes mellitus and per patient his last A1c was 7.6. He reports compliance with his medication. Denies chills, fever or otherwise feeling of unwell at this time. Progress of Wound: Stable. No new concerns at this time. Courtesy visit #5 epi-fix applied. Pared down callus around ulcer. Ulcer is smaller. - Physical Exam Vital Signs Temp Pulse Resp BP 97.4 F L 61 18 164/69 H 06/25/20 09:31 06/25/20 09:31 06/25/20 09:31 06/25/20 09:31 General: Oriented x3, Cooperative, Well developed HEENT: Atraumatic, PERRLA Oral: Moist Mucosa Neck: Supple, No JVD Lungs: Clear to auscultation, Normal air movement Cardiovascular: Regular rate, Regular Rhythm Abdomen: Bowel Sounds Present, Soft, Non Tender, No Hepato-splenomegaly Extremities: No clubbing, No edema Skin: Ulcer/ Wound - Right foot decubitus ulcer Wound Measurements and Assessment WC - Nurse 1 - General Ulcer Measurement Start: 06/19/20 10:55 Freq: Status: Active Protocol: Activity Type Activity Date Activity User E-Sign Co-Sign Detail Recorded Client Recorded Date Recorded By Document 06/25/20 09:31 RB [id number] 06/25/20 09:33 RB 06/25/20 09:31 Wound Center Nurse 1 [Ulcer Assessment] 2. L plantar foot medial -Combined with other wound No -Current Size (cm) - Length 0.5 -Current Size (cm) - Width 0.5 -Current Size (cm) - Depth 0.2 -Total Square Cm 0.25 -Tunneling No -Undermining/Tunneling No -Circular Undermining No -Exudate Amt Small -Exudate Type Serosanguineous -Wound Margin Thickened -Granulation Amt Medium (34-66%) -Granulation Quality [place] -Slough/Fibrin Yes -Necrosis Amt Medium (34-66%) -Structure Exposed N/A -Texture (Angie-wound Skin Appearance) Callus -Moisture (Angie-wound Skin Appearance Assessed ) -Color (Angie-wound Skin Appearance) Assessed -Temperature (Angie-wound Skin No Abnormality Appearance) (Pt Warm) -Tenderness on Palpation (Angie-wound No Skin Appearance) -Ulcer Cleansing Wound Cleanser -Foul Odor after Cleansing No -Anesthetic Used 4% Lidocaine Solution [Edema Assessment] -Lower Limb Edema Present Yes -Left Calf (cm) 40.8 -Left Ankle (cm) 24.5 - Nurse 2 - General Ulcer CM Notes Start: 06/19/20 10:55 Freq: Status: Active Protocol: Activity Type Activity Date Activity User E-Sign Co-Sign Detail Recorded Client Recorded Date Recorded By Document 06/25/20 09:42 MW [id number] 06/25/20 09:49 MW 06/25/20 09:42 Wound Center Nurse 2 [Procedure/Treatment] 2. L plantar foot medial -Time 09:43 -Correct Patient Yes -Correct Side, Site, Position Yes -Correct Procedure Yes -Procedure Performed Yes -Type of Procedure Debridement -Clinical Debridement Subcutaneous -Post Debridement Size (cm) - Length 0.3 -Post Debridement Size (cm) - Width 0.6 -Post Debridement Size (cm) - Depth 0.2 -Total Square (cm) 0.18 -Wound/Ulcer Outcome Not Healed -Ulcer Cleansing Rinsed/ Irrigated with Saline -Foul Odor after Cleansing No -Bioengineered Tissue No -Type of bioengineered Tissue EPIFIX -Expiration Date 02/12/25 -Product Lot Number [id number] -Percent Used 100 -Saline Lot Number [id number] -Bleeding Controlled with Pressure -Offloading No -Treatment Response Procedure Tolerated Well [See Physician Procedure note for Specifics] Pain Scale: 0-10 Numeric [Pain] -Is Patient Pain Free? Yes Musculoskeletal: No Tenderness to Palpation of Joints or Extremities Lymphatic: No Cervical, Supraclavicular, or Inguinal Adenopathy Neurological: Cranial nerves II-XII grossly intact, Neuro grossly intact Psych/Mental Status: Normal Affect, Appropriate Debridement Note Post-Debridement Measurements/Treatment WC - Nurse 2 - General Ulcer CM Notes Start: 06/19/20 10:55 Freq: Status: Active Protocol: Activity Type Activity Date Activity User E-Sign Co-Sign Detail Recorded Client Recorded Date Recorded By Document 06/19/20 11:20 MW [id number] 06/19/20 11:29 MW Document 06/25/20 09:42 MW [id number] 06/25/20 09:49 MW 06/19/20 06/25/20 11:20 09:42 Wound Center Nurse 2 2. L plantar foot medial -Time 11:20 09:43 -Correct Patient Yes Yes -Correct Side, Site, Position Yes Yes -Correct Procedure Yes Yes -Procedure Performed Yes Yes -Type of Procedure Debridement Debridement -Clinical Debridement Subcutaneous Subcutaneous -Post Debridement Size (cm) - Length 0.5 0.3 -Post Debridement Size (cm) - Width 0.7 0.6 -Post Debridement Size (cm) - Depth 0.2 0.2 -Total Square (cm) 0.35 0.18 -Wound/Ulcer Outcome Not Healed Not Healed -Ulcer Cleansing Rinsed/ Rinsed/ Irrigated with Irrigated with Saline Saline -Foul Odor after Cleansing No No -Bioengineered Tissue Yes No -Type of bioengineered Tissue EPIFIX EPIFIX -Expiration Date 02/12/25 02/12/25 -Product Lot Number [id number] -Percent Used 100 100 -Saline Lot Number [id number] -Bleeding Controlled with Pressure Pressure -Offloading No No -Treatment Response Procedure Procedure Tolerated Well Tolerated Well Pain Scale: 0-10 Numeric Is Patient Pain Free? Yes Yes Wound debrided: Right plantar foot decubitus ulcer Wound Grade/Stage: Stage II Anesthesia Used: 5% Lidocaine Gel Depth: Down to and including healthy tissue, in the subcutaneous layer Instrument Used: 5mm curette, - - Nippers Tissue Removed: Callus fibrin Severity: Limited To Skin Breakdown Amount of bleeding with debridement: None Bleeding Controlled with: Pressure Patient tolerated procedure well Assessment/Plan Active Problems (Last Reviewed 05/30/20 @ 08:41 by Olga Hammond) Diabetic foot ulcer associated with type 2 diabetes mellitus (Acute) Decubitus ulcer limited to breakdown of skin (stage 2) (Acute) Non-healing surgical wound (Chronic) Left Great Toe ( Dorsum and Plantar ) Diabetes mellitus (Chronic) Assessment: Same as above. Plan: Debridement done as documented above. Procedure was well-tolerated. Improving. 5th application of epi-fix done today using 100% of product. Moistened with saline. Adaptic touch over top and Steri-Strips to hold in place. Advised to keep in place for a week. May change outer dressing if drainage is noted. Continue double layer Tubigrip for edema management. Optimal diabetes control, increased fluid intake and offloading recommended. His questions were answered and he was advised to call with any further questions or concerns. Follow-up in 1 week. This note was generated with [employer] dictation software. It may contain incorrect words, spelling, and punctuation that were not noted in checking the note before signing.
[2020-07-03 09:53] VITALS: BP 166/89; PULSE 65; RESP 18; TEMP 36.3; BMI 31.6
--- NOTE | 2020-07-03 13:21 | PN.PCM_ITS ---
(1) Non-healing surgical wound Status: Chronic Current Visit: Yes Code(s): T81.89XA - Other complications of procedures, not elsewhere classified, initial encounter Comment: Left Great Toe ( Dorsum and Plantar ) (2) Diabetes mellitus Status: Chronic Current Visit: Yes Qualifiers: Diabetes mellitus type: type 2 Code(s): E11.9 - Type 2 diabetes mellitus without complications Type of Wound Date of Service: 07/03/20 Chief Complaint: Non healing Left Great Toe Surgical wound History of Wound: Mr Hatch Was referred here by his director of pulmonary unit due to nonhealing left great toe wound status post surgery. Surgery was on 25 March and per patient was uneventful however has had delayed healing of his surgical wound. He has been on a 3-week course of doxycycline and is currently on levofloxacin and has been applying antibiotic ointment daily. History of diabetes mellitus and per patient his last A1c was 7.6. He reports compliance with his medication. Denies chills, fever or otherwise feeling of unwell at this time. Progress of Wound: Stable. No new concerns at this time. Has had 5 applications of epi fix so far. - Physical Exam Vital Signs Temp Pulse Resp BP 97.3 F L 65 18 166/89 H 07/03/20 09:53 07/03/20 09:53 07/03/20 09:53 07/03/20 09:53 General: Alert, Oriented x3, Cooperative, No apparent distress HEENT: Atraumatic, Normocephalic Oral: Moist Mucosa Neck: Supple Lungs: Normal air movement Extremities: No cyanosis Wound Measurements and Assessment WC - Nurse 1 - General Ulcer Measurement Start: 06/19/20 10:55 Freq: Status: Active Protocol: Activity Type Activity Date Activity User E-Sign Co-Sign Detail Recorded Client Recorded Date Recorded By Document 07/03/20 09:53 RB [id number] 07/03/20 09:58 RB 07/03/20 09:53 Wound Center Nurse 1 [Ulcer Assessment] 2. L plantar foot medial -Combined with other wound No -Current Size (cm) - Length 0.8 -Current Size (cm) - Width 0.3 -Current Size (cm) - Depth 0.2 -Total Square Cm 0.24 -Tunneling No -Undermining/Tunneling No -Circular Undermining No -Exudate Amt Small -Exudate Type Serosanguineous -Wound Margin Flat & Intact -Granulation Amt Medium (34-66%) -Granulation Quality [place] -Slough/Fibrin Yes -Necrosis Amt Small (1-33%) -Necrotic Tissue Type Adherent Slough -Structure Exposed N/A -Texture (Angie-wound Skin Appearance) Assessed,Callus -Moisture (Angie-wound Skin Appearance Assessed ) -Color (Angie-wound Skin Appearance) Assessed -Temperature (Angie-wound Skin No Abnormality Appearance) (Pt Warm) -Tenderness on Palpation (Angie-wound No Skin Appearance) -Ulcer Cleansing Wound Cleanser -Foul Odor after Cleansing No -Anesthetic Used 4% Lidocaine Solution [Edema Assessment] -Lower Limb Edema Present Yes -Left Calf (cm) 40.5 -Left Ankle (cm) 25.5 WC - Nurse 2 - General Ulcer CM Notes Start: 07/01/20 20:00 Freq: Status: Active Protocol: Activity Type Activity Date Activity User E-Sign Co-Sign Detail Recorded Client Recorded Date Recorded By Document 07/03/20 10:19 MW [id number] 07/03/20 10:30 MW 07/03/20 10:19 Wound Center Nurse 2 [Procedure/Treatment] 2. L plantar foot medial -Time 10:22 -Correct Patient Yes -Correct Side, Site, Position Yes -Correct Procedure Yes -Procedure Performed Yes -Type of Procedure Debridement -Clinical Debridement Subcutaneous -Tissue Removed Subcutaneous -Post Debridement (cm) - Length 0.2 -Post Debridement (cm) - Width 0.5 -Post Debridement (cm) - Depth 0.2 -Total Square (Post) (cm) 0.10 -Area of Debridement (cm) - Length 0.2 -Area of Debridement (cm) - Width 0.5 -Total Square (Area) (cm) 0.10 -Tunneling No -Undermining/Tunneling No -Circular Undermining No -Wound/Ulcer Outcome Not Healed -Ulcer Cleansing Rinsed/ Irrigated with Saline -Foul Odor after Cleansing No -Bioengineered Tissue Yes -Type of Bioengineered Tissue Epifix 18mm Disc -Expiration Date 02/12/25 -Product Lot Number [id number] -Percent Used 100 -Saline Lot Number [id number] -Bleeding Controlled with Pressure -Offloading No -Treatment Response Procedure Tolerated Well -Debridement - Subq, 1st 20sq cm Yes -Apply Skin Sub - 1st 25 sq cm - Feet 1 -Epifix 18mm Disc 3 Query Text:18mm = 3 [See Physician Procedure note for Specifics] Pain Scale: 0-10 Numeric [Pain] -Is Patient Pain Free? Yes - Nurse 3 - General Ulcer D/C NN Start: 07/01/20 20:00 Freq: Status: Active Protocol: Activity Type Activity Date Activity User E-Sign Co-Sign Detail Recorded Client Recorded Date Recorded By Document 07/03/20 10:43 [facility] [id number] 07/03/20 10:44 [facility] 07/03/20 10:43 Wound Care Nurse 3 [Wound Dressing] 2. L plantar foot medial -Primary Dressing Applied Other -Other Dressing EPIFIX PER MD -Primary Dressing Covered/Secured Dry Gauze & with Roll Gauze, Secured with Tape [Compression Applied] Left -Other APPLIED PTS OWN TUBIGRIP [Post Procedure Tolerated] -Treatment Response Procedure Tolerated Well Pain Scale: 0-10 Numeric [Pain] -Is Patient Pain Free? Yes - Visit Discharge [Visit Discharge Information] -Discharge Condition Stable -Ambulatory Status Ambulatory -Transportation Private Auto Musculoskeletal: No Muscle Wasting Neurological: Cranial nerves II-XII grossly intact Psych/Mental Status: Normal Affect Debridement Note Post-Debridement Measurements/Treatment WC - Nurse 2 - General Ulcer CM Notes Start: 07/01/20 20:00 Freq: Status: Active Protocol: Activity Type Activity Date Activity User E-Sign Co-Sign Detail Recorded Client Recorded Date Recorded By Document 07/03/20 10:19 MW [id number] 07/03/20 10:30 MW 07/03/20 10:19 Wound Center Nurse 2 2. L plantar foot medial -Time 10:22 -Correct Patient Yes -Correct Side, Site, Position Yes -Correct Procedure Yes -Procedure Performed Yes -Type of Procedure Debridement -Clinical Debridement Subcutaneous -Tissue Removed Subcutaneous -Post Debridement (cm) - Length 0.2 -Post Debridement (cm) - Width 0.5 -Post Debridement (cm) - Depth 0.2 -Total Square (Post) (cm) 0.10 -Area of Debridement (cm) - Length 0.2 -Area of Debridement (cm) - Width 0.5 -Total Square (Area) (cm) 0.10 -Tunneling No -Undermining/Tunneling No -Circular Undermining No -Wound/Ulcer Outcome Not Healed -Ulcer Cleansing Rinsed/ Irrigated with Saline -Foul Odor after Cleansing No -Bioengineered Tissue Yes -Type of Bioengineered Tissue Epifix 18mm Disc -Expiration Date 02/12/25 -Product Lot Number [id number] -Percent Used 100 -Saline Lot Number [id number] -Bleeding Controlled with Pressure -Offloading No -Treatment Response Procedure Tolerated Well -Debridement - Subq, 1st 20sq cm Yes -Apply Skin Sub - 1st 25 sq cm - Feet 1 -Epifix 18mm Disc 3 Query Text:18mm = 3 Pain Scale: 0-10 Numeric Is Patient Pain Free? Yes - Nurse 3 - General Ulcer D/C NN Start: 07/01/20 20:00 Freq: Status: Active Protocol: Activity Type Activity Date Activity User E-Sign Co-Sign Detail Recorded Client Recorded Date Recorded By Document 07/03/20 10:43 [facility] [id number] 07/03/20 10:44 [facility] 07/03/20 10:43 Wound Care Nurse 3 2. L plantar foot medial -Primary Dressing Applied Other -Other Dressing EPIFIX PER MD -Primary Dressing Covered/Secured with Dry Gauze & Roll Gauze, Secured with Tape Left -Other APPLIED PTS OWN TUBIGRIP Treatment Response Procedure Tolerated Well Pain Scale: 0-10 Numeric Is Patient Pain Free? Yes - Visit Discharge Discharge Condition Stable Ambulatory Status Ambulatory Transportation Private Auto Wound debrided: Right great toe (plantar) Type of Debridement: Excisional debridement Anesthesia Used: 4% Lidocaine Solution Depth: Down to and including healthy tissue, in the subcutaneous layer Percentage of wound debrided: 100 Instrument Used: 3mm curette Tissue Removed: Slough and devitalized tissue Severity: Fat Layer Exposed Amount of bleeding with debridement: Mild Bleeding Controlled with: Pressure Patient tolerated procedure well Assessment/Plan Active Problems (Last Reviewed 05/30/20 @ 08:41 by Olga Hammond) Diabetic foot ulcer associated with type 2 diabetes mellitus (Acute) Decubitus ulcer limited to breakdown of skin (stage 2) (Acute) Non-healing surgical wound (Chronic) Left Great Toe ( Dorsum and Plantar ) Diabetes mellitus (Chronic) Assessment: Same as above. Plan: Debridement done as documented above. Procedure was well-tolerated. Improving. 6th application of epi-fix done today using 100% of product. Moistened with saline. Adaptic touch over top and Steri-Strips to hold in place. Advised to keep in place for a week. May change outer dressing if drainage is noted. Continue double layer Tubigrip for edema management. Optimal diabetes control, increased fluid intake and offloading recommended. His questions were answered and he was advised to call with any further questions or concerns. Follow-up in 1 week. This note was generated with [employer] dictation software. It may contain incorrect words, spelling, and punctuation that were not noted in checking the note before signing. [id number]: [id number] Skin sub graft trnk/arm/leg
[2020-07-10 10:07] VITALS: BP 143/81; PULSE 61; RESP 18; TEMP 36.6; BMI 31.6
--- NOTE | 2020-07-10 10:40 | PN.PCM_ITS ---
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 Surgery was on 25 March and per patient was uneventful however has had delayed healing of his surgical wound. He has been on a 3-week course of doxycycline and is currently on levofloxacin and has been applying antibiotic ointment daily. History of diabetes mellitus and per patient his last A1c was 7.6. He reports compliance with his medication. Denies chills, fever or otherwise feeling of unwell at this time. Progress of Wound: Stable. No new concerns at this time. some improvement in the past week. Has had 6 applications of epi fix so far. - Physical Exam Vital Signs Temp Pulse Resp BP 97.8 F 61 18 143/81 H 07/10/20 10:07 07/10/20 10:07 07/10/20 10:07 07/10/20 10:07 General: Alert, Oriented x3, Cooperative, No apparent distress HEENT: Atraumatic, Normocephalic Oral: Moist Mucosa Neck: Supple Lungs: Normal air movement Abdomen: Non Tender, Obese Skin: Ulcer/ Wound Wound Measurements and Assessment WC - Nurse 1 - General Ulcer Measurement Start: 06/19/20 10:55 Freq: Status: Active Protocol: Activity Type Activity Date Activity User E-Sign Co-Sign Detail Recorded Client Recorded Date Recorded By Document 07/10/20 10:07 PL [id number] 07/10/20 10:16 PL 07/10/20 10:07 Wound Center Nurse 1 [Ulcer Assessment] 2. L plantar foot medial -Combined with other wound No -Current Size (cm) - Length 0 -Current Size (cm) - Width 0 -Current Size (cm) - Depth 0 -Total Square Cm 0 -Photo Taken No -Epithelialization None Present -Exudate Amt None Present -Texture (Angie-wound Skin Appearance) Callus -Moisture (Angie-wound Skin Appearance No Abnormality ) -Color (Angie-wound Skin Appearance) No Abnormality -Temperature (Angie-wound Skin No Abnormality Appearance) (Pt Warm) -Ulcer Cleansing Rinsed/ Irrigated with Saline -Foul Odor after Cleansing No -Anesthetic Used 4% Lidocaine Solution WC - Nurse 2 - General Ulcer CM Notes Start: 07/01/20 20:00 Freq: Status: Active Protocol: Activity Type Activity Date Activity User E-Sign Co-Sign Detail Recorded Client Recorded Date Recorded By Document 07/10/20 10:26 MW [id number] 07/10/20 10:35 MW 07/10/20 10:26 Wound Center Nurse 2 [Procedure/Treatment] -Time 10:27 -Correct Patient Yes -Correct Side, Site, Position Yes -Correct Procedure Yes -Procedure Performed Yes -Type of Procedure Debridement -Clinical Debridement Subcutaneous -Tissue Removed Subcutaneous -Post Debridement (cm) - Length 0.2 -Post Debridement (cm) - Width 0.4 -Post Debridement (cm) - Depth 0.2 -Total Square (Post) (cm) 0.08 -Area of Debridement (cm) - Length 0.2 -Area of Debridement (cm) - Width 0.4 -Total Square (Area) (cm) 0.08 -Tunneling No -Undermining/Tunneling No -Circular Undermining No -Wound/Ulcer Outcome Not Healed -Ulcer Cleansing Rinsed/ Irrigated with Saline -Foul Odor after Cleansing No -Bioengineered Tissue Yes -Type of Bioengineered Tissue Epifix 18mm Disc -Expiration Date 03/14/25 -Product Lot Number [id number] -Percent Used 100 -Saline Lot Number [id number] -Bleeding Controlled with Pressure -Offloading No -Debridement - Subq, 1st 20sq cm Yes -Epifix 18mm Disc 3 Query Text:18mm = 3 [See Physician Procedure note for Specifics] Pain Scale: 0-10 Numeric [Pain] -Is Patient Pain Free? Yes Musculoskeletal: No Muscle Wasting Neurological: Cranial nerves II-XII grossly intact Psych/Mental Status: Normal Affect Debridement Note Post-Debridement Measurements/Treatment WC - Nurse 2 - General Ulcer CM Notes Start: 07/01/20 20:00 Freq: Status: Active Protocol: Activity Type Activity Date Activity User E-Sign Co-Sign Detail Recorded Client Recorded Date Recorded By Document 07/03/20 10:19 MW [id number] 07/03/20 10:30 MW Document 07/10/20 10:26 MW [id number] 07/10/20 10:35 MW 07/03/20 07/10/20 10:19 10:26 Wound Center Nurse 2 2. L plantar foot medial -Time 10:22 10:27 -Correct Patient Yes Yes -Correct Side, Site, Position Yes Yes -Correct Procedure Yes Yes -Procedure Performed Yes Yes -Type of Procedure Debridement Debridement -Clinical Debridement Subcutaneous Subcutaneous -Tissue Removed Subcutaneous Subcutaneous -Post Debridement (cm) - Length 0.2 0.2 -Post Debridement (cm) - Width 0.5 0.4 -Post Debridement (cm) - Depth 0.2 0.2 -Total Square (Post) (cm) 0.10 0.08 -Area of Debridement (cm) - Length 0.2 0.2 -Area of Debridement (cm) - Width 0.5 0.4 -Total Square (Area) (cm) 0.10 0.08 -Tunneling No No -Undermining/Tunneling No No -Circular Undermining No No -Wound/Ulcer Outcome Not Healed Not Healed -Ulcer Cleansing Rinsed/ Rinsed/ Irrigated with Irrigated with Saline Saline -Foul Odor after Cleansing No No -Bioengineered Tissue Yes Yes -Type of Bioengineered Tissue Epifix 18mm Epifix 18mm Disc Disc -Expiration Date 02/12/25 03/14/25 -Product Lot Number [id number] -Percent Used 100 100 -Saline Lot Number [id number] -Bleeding Controlled with Pressure Pressure -Offloading No No -Treatment Response Procedure Tolerated Well -Debridement - Subq, 1st 20sq cm No Yes -Apply Skin Sub - 1st 25 sq cm - Feet 1 -Epifix 18mm Disc 3 3 Query Text:18mm = 3 Pain Scale: 0-10 Numeric Is Patient Pain Free? Yes Yes WC - Nurse 3 - General Ulcer D/C NN Start: 07/01/20 20:00 Freq: Status: Active Protocol: Activity Type Activity Date Activity User E-Sign Co-Sign Detail Recorded Client Recorded Date Recorded By Document 07/03/20 10:43 [facility] [id number] 07/03/20 10:44 BMF 07/03/20 10:43 Wound Care Nurse 3 2. L plantar foot medial -Primary Dressing Applied Other -Other Dressing EPIFIX PER MD -Primary Dressing Covered/Secured with Dry Gauze & Roll Gauze, Secured with Tape Left -Other APPLIED PTS OWN TUBIGRIP Treatment Response Procedure Tolerated Well Pain Scale: 0-10 Numeric Is Patient Pain Free? Yes WC - Visit Discharge Discharge Condition Stable Ambulatory Status Ambulatory Transportation Private Auto Wound debrided: Left Great Toe ( Plantar ) Type of Debridement: Excisional debridement Anesthesia Used: 4% Lidocaine Solution Depth: Down to and including healthy tissue, in the subcutaneous layer Percentage of wound debrided: 100 Instrument Used: 5mm curette - and 1 mm Tissue Removed: Slough and devitalized tissue Severity: Fat Layer Exposed Amount of bleeding with debridement: Mild Bleeding Controlled with: Pressure Patient tolerated procedure well Assessment/Plan Active Problems (Last Reviewed 05/30/20 @ 08:41 by Olga Hammond) Diabetic foot ulcer associated with type 2 diabetes mellitus (Acute) Decubitus ulcer limited to breakdown of skin (stage 2) (Acute) Non-healing surgical wound (Chronic) Left Great Toe ( Dorsum and Plantar ) Diabetes mellitus (Chronic) Assessment: Same as above. Plan: Debridement done as documented above. Procedure was well-tolerated. Improving. 7th application of epi-fix done today using 100% of product. Moistened with saline. Adaptic touch over top and Steri-Strips to hold in place. Advised to keep in place for a week. May change outer dressing if drainage is noted. Continue double layer Tubigrip for edema management. Optimal diabetes control, increased fluid intake and offloading recommended. His questions were answered and he was advised to call with any further questions or concerns. Follow-up in 1 week. This note was generated with [employer] software. It may contain incorrect words, spelling, and punctuation that were not noted in checking the note before signing. [id number]: [id number] Skin sub graft trnk/arm/leg
== END 2020-07-14 23:59 ==
LOC: WC 10:00
PROVIDERS: PCP Family Medicine; Visit Provider Internal Medicine
DX: T81.89XA Other complications of procedures, not elsewhere classified, initial encounter (principal); Y83.8 Other surgical procedures as the cause of abnormal reaction of the patient, or of later complication, without mention of misadventure at the time of the procedure; E11.621 Type 2 diabetes mellitus with foot ulcer; L89.892 Pressure ulcer of other site, stage 2
CPT/HCPCS: 11042; 15275; Q4186

== ENCOUNTER 2020-08-08 13:41 | Outpatient (RCR) | payer MEDICARE, OTHER, SELFPAY ==
[2020-07-14 21:02] VITALS: BMI 25.6
[2020-07-15 00:47] VITALS: BP 143/81; PULSE 61; RESP 18; TEMP 36.6
[2020-07-17 10:52] VITALS: BP 168/78; PULSE 72; RESP 16; TEMP 36.4; BMI 25.6
--- NOTE | 2020-07-17 12:37 | PCM.WC.PN ---
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 Surgery was on 25 March and per patient was uneventful however has had delayed healing of his surgical wound. He has been on a 3-week course of doxycycline and is currently on levofloxacin and has been applying antibiotic ointment daily. History of diabetes mellitus and per patient his last A1c was 7.6. He reports compliance with his medication. Denies chills, fever or otherwise feeling of unwell at this time. Progress of Wound: Has had 7 applications of epi fix so far. Wound appears healed. Denies any concerns. - Physical Exam Vital Signs Temp Pulse Resp BP 97.6 F L 72 16 168/78 H 07/17/20 10:52 07/17/20 10:52 07/17/20 10:52 07/17/20 10:52 General: Alert, Oriented x3, Cooperative, No apparent distress HEENT: Atraumatic, Normocephalic Oral: Moist Mucosa Lungs: Normal air movement Abdomen: Non Tender, Obese Extremities: No cyanosis Skin: Ulcer/ Wound Wound Measurements and Assessment WC - Nurse 1 - General Ulcer Measurement Start: 07/17/20 10:52 Freq: Status: Active Protocol: Activity Type Activity Date Activity User E-Sign Co-Sign Detail Recorded Client Recorded Date Recorded By Document 07/17/20 10:52 [facility] [id number] 07/17/20 11:01 [facility] 07/17/20 10:52 Wound Center Nurse 1 [Ulcer Assessment] 2. L plantar foot medial -Combined with other wound No -Current Size (cm) - Length 0.1 -Current Size (cm) - Width 0.1 -Current Size (cm) - Depth 0.1 -Total Square Cm 0.01 -Photo Taken No -Tunneling No -Undermining/Tunneling No -Circular Undermining No -Texture (Angie-wound Skin Appearance) Assessed,Callus ,Scarring -Moisture (Angie-wound Skin Appearance Assessed,Dry/ ) Scaly -Color (Angie-wound Skin Appearance) Assessed -Temperature (Angie-wound Skin No Abnormality Appearance) (Pt Warm) -Tenderness on Palpation (Angie-wound No Skin Appearance) -Ulcer Cleansing soapy water -Foul Odor after Cleansing No -Anesthetic Used 5% Lidocaine Gel [Edema Assessment] -Lower Limb Edema Present Yes -Left Calf (cm) 41 -Left Ankle (cm) 25.6 WC - Nurse 2 - General Ulcer CM Notes Start: 07/17/20 10:52 Freq: Status: Active Protocol: Activity Type Activity Date Activity User E-Sign Co-Sign Detail Recorded Client Recorded Date Recorded By Document 07/17/20 11:21 MW [id number] 07/17/20 11:24 MW 07/17/20 11:21 Wound Center Nurse 2 [Procedure/Treatment] 2. L plantar foot medial -Time 11:23 -Correct Patient Yes -Correct Side, Site, Position Yes -Correct Procedure Yes -Procedure Performed Yes -Type of Procedure Debridement -Clinical Debridement Epidermis / Dermis -Tissue Removed Epidermis -Post Debridement (cm) - Length 0.1 -Post Debridement (cm) - Width 0.1 -Post Debridement (cm) - Depth 0.1 -Total Square (Post) (cm) 0.01 -Area of Debridement (cm) - Length 0.1 -Area of Debridement (cm) - Width 0.1 -Total Square (Area) (cm) 0.01 -Tunneling No -Undermining/Tunneling No -Circular Undermining No -Wound/Ulcer Outcome Not Healed -Ulcer Cleansing Rinsed/ Irrigated with Saline -Foul Odor after Cleansing No -Bioengineered Tissue No -Bleeding Controlled with Pressure -Offloading No -Debridement - Open, 1st 20sq cm Yes [See Physician Procedure note for Specifics] Pain Scale: 0-10 Numeric [Pain] -Is Patient Pain Free? Yes Musculoskeletal: No Muscle Wasting Neurological: Cranial nerves II-XII grossly intact Psych/Mental Status: Normal Affect Debridement Note Post-Debridement Measurements/Treatment WC - Nurse 2 - General Ulcer CM Notes Start: 07/17/20 10:52 Freq: Status: Active Protocol: Activity Type Activity Date Activity User E-Sign Co-Sign Detail Recorded Client Recorded Date Recorded By Document 07/17/20 11:21 MW [id number] 07/17/20 11:24 MW 07/17/20 11:21 Wound Center Nurse 2 2. L plantar foot medial -Time 11:23 -Correct Patient Yes -Correct Side, Site, Position Yes -Correct Procedure Yes -Procedure Performed Yes -Type of Procedure Debridement -Clinical Debridement Epidermis / Dermis -Tissue Removed Epidermis -Post Debridement (cm) - Length 0.1 -Post Debridement (cm) - Width 0.1 -Post Debridement (cm) - Depth 0.1 -Total Square (Post) (cm) 0.01 -Area of Debridement (cm) - Length 0.1 -Area of Debridement (cm) - Width 0.1 -Total Square (Area) (cm) 0.01 -Tunneling No -Undermining/Tunneling No -Circular Undermining No -Wound/Ulcer Outcome Not Healed -Ulcer Cleansing Rinsed/ Irrigated with Saline -Foul Odor after Cleansing No -Bioengineered Tissue No -Bleeding Controlled with Pressure -Offloading No -Debridement - Open, 1st 20sq cm Yes Pain Scale: 0-10 Numeric Is Patient Pain Free? Yes Wound debrided: Right greater toe (plantar) Type of Debridement: Selective debridement Anesthesia Used: 4% Lidocaine Solution Depth: Down to and including healthy tissue, in the subcutaneous layer Percentage of wound debrided: 100 Tissue Removed: Devitalized tissue Severity: Limited To Skin Breakdown Amount of bleeding with debridement: None Patient tolerated procedure well Assessment/Plan Assessment: Non healing post surgical wound. Plan: Debridement done as documented above. Procedure was well-tolerated. Minimal area left, essentially healed. No Epi-fix applied today. Adaptic and gauze daily. Follow-up in a week to ensure stability. Continue double layer Tubigrip for edema management. Optimal diabetes control, increased fluid intake and offloading recommended. His questions were answered and he was advised to call with any further questions or concerns. Follow-up in 1 week. This note was generated with [employer] dictation software. It may contain incorrect words, spelling, and punctuation that were not noted in checking the note before signing. 111xxx-113xx: [id number] Vannessa subq tissue 20 sq cm/< - Selective/superficial debridement done today, please refer to clinical note.
[2020-07-24 10:57] VITALS: BP 165/94; PULSE 70; RESP 18; TEMP 36.6; BMI 25.6
--- NOTE | 2020-07-24 11:50 | WC ---
2x2 gauze and tape to healed wound
--- NOTE | 2020-07-24 12:48 | PCM.WC.PN ---
(1) Diabetic foot ulcer associated with type 2 diabetes mellitus Status: Chronic Code(s): E11.621 - Type 2 diabetes mellitus with foot ulcer; L97.509 - Non-pressure chronic ulcer of other part of unspecified foot with unspecified severity Type of Wound Date of Service: 07/24/20 Chief Complaint: Non healing Left Great Toe Surgical wound History of Wound: Mr Hatch Was referred here by his chief embalmer due to nonhealing left great toe wound status post surgery. Surgery was on 25 March and per patient was uneventful however has had delayed healing of his surgical wound. He has been on a 3-week course of doxycycline and is currently on levofloxacin and has been applying antibiotic ointment daily. History of diabetes mellitus and per patient his last A1c was 7.6. He reports compliance with his medication. Denies chills, fever or otherwise feeling of unwell at this time. Progress of Wound: Has had 7 applications of epi fix so far. Wound appears healed. Denies any concerns. - Physical Exam Vital Signs Temp Pulse Resp BP 97.8 F 70 18 165/94 H 07/24/20 10:57 07/24/20 10:57 07/24/20 10:57 07/24/20 10:57 General: Alert, Oriented x3, Cooperative HEENT: Atraumatic Oral: Moist Mucosa Lungs: Normal air movement Cardiovascular: Regular rate Extremities: Capillary Refill Less than 3 Seconds Skin: Ulcer/ Wound - Left plantar great toe ulcer is healed. Wound Measurements and Assessment WC - Nurse 1 - General Ulcer Measurement Start: 07/17/20 10:52 Freq: Status: Active Protocol: Activity Type Activity Date Activity User E-Sign Co-Sign Detail Recorded Client Recorded Date Recorded By Document 07/24/20 10:57 [id number] 07/24/20 11:02 RB 07/24/20 10:57 Wound Center Nurse 1 [Ulcer Assessment] 2. L plantar foot medial -Combined with other wound No -Current Size (cm) - Length 0.1 -Current Size (cm) - Width 0.1 -Current Size (cm) - Depth 0.1 -Total Square Cm 0.01 -Tunneling No -Undermining/Tunneling No -Circular Undermining No -Exudate Amt None Present -Wound Margin Thickened -Granulation Amt Small (1-33%) -Granulation Quality Pale,[place] -Slough/Fibrin Yes -Necrosis Amt Medium (34-66%) -Necrotic Tissue Type Adherent Slough -Structure Exposed N/A -Texture (Angie-wound Skin Appearance) Callus -Moisture (Angie-wound Skin Appearance Assessed ) -Color (Angie-wound Skin Appearance) Assessed -Temperature (Angie-wound Skin No Abnormality Appearance) (Pt Warm) -Tenderness on Palpation (Angie-wound No Skin Appearance) -Ulcer Cleansing Wound Cleanser -Foul Odor after Cleansing No -Anesthetic Used 5% Lidocaine Gel - Nurse 2 - General Ulcer CM Notes Start: 07/17/20 10:52 Freq: Status: Active Protocol: Activity Type Activity Date Activity User E-Sign Co-Sign Detail Recorded Client Recorded Date Recorded By Document 07/24/20 11:40 MW [id number] 07/24/20 11:45 MW 07/24/20 11:40 Wound Center Nurse 2 [Procedure/Treatment] -Time 11:40 -Correct Patient Yes -Correct Side, Site, Position Yes -Correct Procedure Yes -Procedure Performed No -Post Debridement (cm) - Length 0 -Post Debridement (cm) - Width 0 -Post Debridement (cm) - Depth 0 -Total Square (Post) (cm) 0 -Wound/Ulcer Outcome Healed- Epithelialized [See Physician Procedure note for Specifics] Pain Scale: 0-10 Numeric [Pain] -Is Patient Pain Free? Yes - Nurse 3 - General Ulcer D/C NN Start: 07/17/20 10:52 Freq: Status: Active Protocol: Activity Type Activity Date Activity User E-Sign Co-Sign Detail Recorded Client Recorded Date Recorded By Document 07/24/20 11:50 RB [id number] 07/24/20 11:51 RB 07/24/20 11:50 Wound Care Nurse 3 [Post Procedure Tolerated] -Treatment Response Procedure Tolerated Well Pain Scale: 0-10 Numeric [Pain] -Is Patient Pain Free? Yes Teaching: Wound Center [Wound Center Education] (Items with an * have Printed Materials Available- Please identify what is given to patient under the Teaching materials given to patient and caregiver Section. Foot Care -Person Taught Patient -Teaching Method Demonstration -Response to teaching Verbalize understanding WC - Visit Discharge [Visit Discharge Information] -Discharge Condition Stable -Ambulatory Status Ambulatory -Transportation Private Auto -Medication Reconcilliation completed No & provided to patient/care provider -Clinical Summary of Care Provided Yes 07/24/20 11:50 Wound Center by Suzette Gil 2x2 gauze and tape to healed wound Initialized on 07/24/20 11:50 - END OF NOTE Musculoskeletal: No Tenderness to Palpation of Joints or Extremities Neurological: Cranial nerves II-XII grossly intact Psych/Mental Status: Normal Affect, Appropriate Debridement Note Post-Debridement Measurements/Treatment WC - Nurse 2 - General Ulcer CM Notes Start: 07/17/20 10:52 Freq: Status: Active Protocol: Activity Type Activity Date Activity User E-Sign Co-Sign Detail Recorded Client Recorded Date Recorded By Document 07/17/20 11:21 MW [id number] 07/17/20 11:24 MW Document 07/24/20 11:40 MW [id number] 07/24/20 11:45 MW 07/17/20 07/24/20 11:21 11:40 Wound Center Nurse 2 2. L plantar foot medial -Time 11:23 11:40 -Correct Patient Yes Yes -Correct Side, Site, Position Yes Yes -Correct Procedure Yes Yes -Procedure Performed Yes No -Type of Procedure Debridement -Clinical Debridement Epidermis / Dermis -Tissue Removed Epidermis -Post Debridement (cm) - Length 0.1 0 -Post Debridement (cm) - Width 0.1 0 -Post Debridement (cm) - Depth 0.1 0 -Total Square (Post) (cm) 0.01 0 -Area of Debridement (cm) - Length 0.1 -Area of Debridement (cm) - Width 0.1 -Total Square (Area) (cm) 0.01 -Tunneling No -Undermining/Tunneling No -Circular Undermining No -Wound/Ulcer Outcome Not Healed Healed- Epithelialized -Ulcer Cleansing Rinsed/ Irrigated with Saline -Foul Odor after Cleansing No -Bioengineered Tissue No -Bleeding Controlled with Pressure -Offloading No -Debridement - Open, 1st 20sq cm Yes Pain Scale: 0-10 Numeric Is Patient Pain Free? Yes Yes WC - Nurse 3 - General Ulcer D/C NN Start: 07/17/20 10:52 Freq: Status: Active Protocol: Activity Type Activity Date Activity User E-Sign Co-Sign Detail Recorded Client Recorded Date Recorded By Document 07/17/20 14:14 PL [id number] 07/17/20 14:15 PL Document 07/24/20 11:50 RB [id number] 07/24/20 11:51 RB 07/17/20 07/24/20 14:14 11:50 Wound Care Nurse 3 2. L plantar foot medial -Ulcer Cleansing Rinsed/ Irrigated with Saline -Foul Odor after Cleansing No -Primary Dressing Applied Other -Other Dressing Adaptic, 4 x 4, conform, tape -Primary Dressing Covered/Secured with Dry Gauze & Roll Gauze, Secured with Tape Treatment Response Procedure Tolerated Well Pain Scale: 0-10 Numeric Is Patient Pain Free? Yes Yes Teaching: Wound Center Foot Care -Person Taught Patient -Teaching Method Demonstration -Response to teaching Verbalize understanding WC - Visit Discharge Discharge Condition Stable Stable Ambulatory Status Ambulatory Ambulatory Transportation Private Auto Private Auto Medication Reconcilliation completed & No provided to patient/care provider Clinical Summary of Care Provided Yes Yes 07/24/20 11:50 Wound Center by Suzette Gil 2x2 gauze and tape to healed wound Initialized on 07/24/20 11:50 - END OF NOTE No debridement was completed today Assessment/Plan Assessment: Non healing post surgical wound. Plan: Ulcer is healed. Area is very dry and flaky. Instructed to use emolient lotion or aquaphor or vasoline. Encouraged to massage the area daily to help soften the scaring. Follow-up as needed. Encouraged to continue to wear compression. Office Visits / Consults: [id number] Est
[2020-08-07 09:10] VITALS: BP 154/80; PULSE 72; RESP 16; TEMP 36.2; BMI 25.6
[2020-08-07 09:57] VITALS: RESP 16
--- NOTE | 2020-08-07 10:57 | PN.PCM_ITS ---
(1) Non-healing surgical wound Status: Chronic Current Visit: Yes Code(s): T81.89XA - Other complications of procedures, not elsewhere classified, initial encounter Comment: Left Great Toe ( Dorsum and Plantar ) (2) Diabetes mellitus Status: Chronic Current Visit: No Qualifiers: Diabetes mellitus type: type 2 Code(s): E11.9 - Type 2 diabetes mellitus without complications Type of Wound Date of Service: 08/07/20 Chief Complaint: Non healing Left Great Toe Surgical wound History of Wound: Mr Hatch Was referred here by his junior recruiter due to nonhealing left great toe wound status post surgery. Surgery was on 25 March and per patient was uneventful however has had delayed healing of his surgical wound. He has been on a 3-week course of doxycycline and is currently on levofloxacin and has been applying antibiotic ointment daily. History of diabetes mellitus and per patient his last A1c was 7.6. He reports compliance with his medication. Denies chills, fever or otherwise feeling of unwell at this time. Progress of Wound: Was discharged about 2 weeks ago however returns with a little opening which is said to be draining a lot. Had 7 applications of epi- fix prior to healing/discharged. Was seen by his junior recruiter yesterday and plan is for possible joint fusion due to pressure around the area. - Physical Exam Vital Signs Temp Pulse Resp BP 97.1 F L 72 16 154/80 H 08/07/20 09:10 08/07/20 09:10 08/07/20 09:57 08/07/20 09:10 General: Alert, Oriented x3, Cooperative, No apparent distress HEENT: Atraumatic, Normocephalic Oral: Moist Mucosa Neck: Supple Lungs: Normal air movement Extremities: No cyanosis Skin: Ulcer/ Wound Wound Measurements and Assessment WC - Nurse 1 - General Ulcer Measurement Start: 07/17/20 10:52 Freq: Status: Active Protocol: Activity Type Activity Date Activity User E-Sign Co-Sign Detail Recorded Client Recorded Date Recorded By Document 08/07/20 09:10 [facility] [id number] 08/07/20 09:17 [facility] 08/07/20 09:10 Wound Center Nurse 1 [Ulcer Assessment] 2. L plantar foot medial -Combined with other wound No -Current Size (cm) - Length 0.8 -Current Size (cm) - Width 0.8 -Current Size (cm) - Depth 0.2 -Total Square Cm 0.64 -Date of Last Picture (Recall this 08/07/20 field) -Photo Taken Yes -Epithelialization None Present -Tunneling No -Undermining/Tunneling No -Circular Undermining No -Exudate Amt Small -Exudate Type Serosanguineous -Wound Margin Distinct, Outline Attached -Granulation Amt Large (67-100%) -Granulation Quality Red -Slough/Fibrin No -Necrosis Amt None Present (0 %) -Texture (Angie-wound Skin Appearance) Assessed, Scarring -Moisture (Angie-wound Skin Appearance Assessed ) -Color (Angie-wound Skin Appearance) Assessed -Temperature (Angie-wound Skin No Abnormality Appearance) (Pt Warm) -Tenderness on Palpation (Angie-wound No Skin Appearance) -Ulcer Cleansing Rinsed/ Irrigated with Saline -Foul Odor after Cleansing No -Anesthetic Used 5% Lidocaine Gel [Edema Assessment] -Lower Limb Edema Present Yes -Left Calf (cm) 40.6 -Left Ankle (cm) 24.8 WC - Nurse 2 - General Ulcer CM Notes Start: 07/17/20 10:52 Freq: Status: Active Protocol: Activity Type Activity Date Activity User E-Sign Co-Sign Detail Recorded Client Recorded Date Recorded By Document 08/07/20 09:46 MW [id number] 08/07/20 09:48 MW 08/07/20 09:46 Wound Center Nurse 2 [Procedure/Treatment] 2. L plantar foot medial -Time 09:47 -Correct Patient Yes -Correct Side, Site, Position Yes -Correct Procedure Yes -Procedure Performed Yes -Type of Procedure Debridement -Clinical Debridement Subcutaneous -Tissue Removed Subcutaneous -Post Debridement (cm) - Length 0.2 -Post Debridement (cm) - Width 0.2 -Post Debridement (cm) - Depth 0.1 -Total Square (Post) (cm) 0.04 -Area of Debridement (cm) - Length 0.2 -Area of Debridement (cm) - Width 0.2 -Total Square (Area) (cm) 0.04 -Tunneling No -Undermining/Tunneling No -Circular Undermining No -Wound/Ulcer Outcome Not Healed -Ulcer Cleansing Rinsed/ Irrigated with Saline -Foul Odor after Cleansing No -Bioengineered Tissue No -Bleeding Controlled with Pressure -Offloading No -Treatment Response Procedure Tolerated Well -Debridement - Subq, 1st 20sq cm Yes [See Physician Procedure note for Specifics] Pain Scale: 0-10 Numeric [Pain] -Is Patient Pain Free? Yes - Nurse 3 - General Ulcer D/C NN Start: 07/17/20 10:52 Freq: Status: Active Protocol: Activity Type Activity Date Activity User E-Sign Co-Sign Detail Recorded Client Recorded Date Recorded By Document 08/07/20 09:57 [facility] [id number] 08/07/20 09:57 [facility] 08/07/20 09:57 Wound Care Nurse 3 [Wound Dressing] 2. L plantar foot medial -Ulcer Cleansing Rinsed/ Irrigated with Saline -Foul Odor after Cleansing No -Primary Dressing Applied Promogran -Primary Dressing Covered/Secured Dry Gauze, with Secured with Tape -Promogran 1 [Post Procedure Tolerated] -Treatment Response Procedure Tolerated Well Vital Signs [Respirations] -Respiratory Rate (12-18 breaths/min) 16 -Respiratory rate source Observation -Oxygen Delivery Method Room Air Pain Scale: 0-10 Numeric [Pain] -Is Patient Pain Free? Yes - Visit Discharge [Visit Discharge Information] -Discharge Condition Stable -Ambulatory Status Ambulatory -Transportation Private Auto -Accompanied by Musculoskeletal: No Muscle Wasting Neurological: Cranial nerves II-XII grossly intact Psych/Mental Status: Normal Affect Debridement Note Post-Debridement Measurements/Treatment - Nurse 2 - General Ulcer CM Notes Start: 07/17/20 10:52 Freq: Status: Active Protocol: Activity Type Activity Date Activity User E-Sign Co-Sign Detail Recorded Client Recorded Date Recorded By Document 07/17/20 11:21 MW [id number] 07/17/20 11:24 MW Document 07/24/20 11:40 MW [id number] 07/24/20 11:45 MW Document 08/07/20 09:46 MW [id number] 08/07/20 09:48 MW 07/17/20 07/24/20 08/07/20 11:21 11:40 09:46 Wound Center Nurse 2 2. L plantar foot medial -Time 11:23 11:40 09:47 -Correct Patient Yes Yes Yes -Correct Side, Site, Position Yes Yes Yes -Correct Procedure Yes Yes Yes -Procedure Performed Yes No Yes -Type of Procedure Debridement Debridement -Clinical Debridement Epidermis / Subcutaneous Dermis -Tissue Removed Epidermis Subcutaneous -Post Debridement (cm) - Length 0.1 0 0.2 -Post Debridement (cm) - Width 0.1 0 0.2 -Post Debridement (cm) - Depth 0.1 0 0.1 -Total Square (Post) (cm) 0.01 0 0.04 -Area of Debridement (cm) - Length 0.1 0.2 -Area of Debridement (cm) - Width 0.1 0.2 -Total Square (Area) (cm) 0.01 0.04 -Tunneling No No -Undermining/Tunneling No No -Circular Undermining No No -Wound/Ulcer Outcome Not Healed Healed- Not Healed Epithelialized -Ulcer Cleansing Rinsed/ Rinsed/ Irrigated with Irrigated with Saline Saline -Foul Odor after Cleansing No No -Bioengineered Tissue No No -Bleeding Controlled with Pressure Pressure -Offloading No No -Treatment Response Procedure Tolerated Well -Debridement - Open, 1st 20sq cm Yes -Debridement - Subq, 1st 20sq cm Yes Pain Scale: 0-10 Numeric Is Patient Pain Free? Yes Yes Yes - Nurse 3 - General Ulcer D/C NN Start: 07/17/20 10:52 Freq: Status: Active Protocol: Activity Type Activity Date Activity User E-Sign Co-Sign Detail Recorded Client Recorded Date Recorded By Document 07/17/20 14:14 PL [id number] 07/17/20 14:15 PL Document 07/24/20 11:50 RB [id number] 07/24/20 11:51 RB Document 08/07/20 09:57 [facility] [id number] 08/07/20 09:57 [facility] 07/17/20 07/24/20 08/07/20 14:14 11:50 09:57 Wound Care Nurse 3 2. L plantar foot medial -Ulcer Cleansing Rinsed/ Rinsed/ Irrigated with Irrigated with Saline Saline -Foul Odor after Cleansing No No -Primary Dressing Applied Other Promogran -Other Dressing Adaptic, 4 x 4, conform, tape -Primary Dressing Covered/Secured with Dry Gauze & Dry Gauze, Roll Gauze, Secured with Secured with Tape Tape -Promogran 1 Treatment Response Procedure Procedure Tolerated Well Tolerated Well Pain Scale: 0-10 Numeric Is Patient Pain Free? Yes Yes Yes Vital Signs Respiratory Rate (12-18 breaths/min) 16 Respiratory rate source Observation Oxygen Delivery Method Room Air Teaching: Wound Center Foot Care -Person Taught Patient -Teaching Method Demonstration -Response to teaching Verbalize understanding WC - Visit Discharge Discharge Condition Stable Stable Stable Ambulatory Status Ambulatory Ambulatory Ambulatory Transportation Private Auto Private Auto Private Auto Accompanied by Medication Reconcilliation completed & No provided to patient/care provider Clinical Summary of Care Provided Yes Yes 07/24/20 11:50 Wound Center by Suzette Gil 2x2 gauze and tape to healed wound Initialized on 07/24/20 11:50 - END OF NOTE Wound debrided: Left great toe (plantar) Type of Debridement: Excisional debridement Anesthesia Used: 4% Lidocaine Solution Depth: Down to and including healthy tissue, in the subcutaneous layer Percentage of wound debrided: 100 Instrument Used: 5mm curette Tissue Removed: Devitalized tissue Severity: Fat Layer Exposed Amount of bleeding with debridement: Mild Bleeding Controlled with: Pressure Patient tolerated procedure well Assessment/Plan Active Problems (Last Reviewed 05/30/20 @ 08:41 by Olga Hammond) Non-healing surgical wound (Chronic) Left Great Toe ( Dorsum and Plantar ) Assessment: Non healing post surgical wound. Left great toe deformity. Plan: Returns due to a new area of opening in previously healed wound. Patient and his report a lot of drainage. Area of opening is around a bony prominence/pressure area. Offloading very strongly recommended. Continue following up closely with podiatry. Promogran daily with OptiForm over top. X- ray ordered, follow-up with results. Their questions were answered and they were advised to call with any further questions or concerns. Follow-up in a week. This note was generated with [employer] dictation software. It may contain incorrect words, spelling, and punctuation that were not noted in checking the note before signing. [id number]: [id number] Vannessa subq tissue 20 sq cm/<
--- NOTE | 2020-08-08 13:53 | RAD_ITS ---
STUDY: X-RAY LEFT FOOT, GREAT TOE REASON FOR EXAM: Male, 75 years old. LEFT PLANTAR ULCER, JUST UNDERNEATH BIG TOE. TAPED WITH GAUZE. TECHNIQUE: 3 view(s) of the toe were obtained. COMPARISON: Comparison is made with prior examination dated 02/04/2016. FINDINGS: There is evidence of erosive changes at the level of the distal portion of the occipital phalanx of the great toe suggestive of osteomyelitis. Soft tissue swelling. 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 RAD/Toe(s) Min 2 Views IMPRESSION: Erosive changes at the head of the proximal phalanx of the great toe with overlying soft tissue swelling in keeping with osteomyelitis. Electronically Signed: Shorty Elizabeth, at 15:13 EDT , Service support ,
== END 2020-08-13 23:59 ==
LOC: WC 13:41
PROVIDERS: PCP Family Medicine; Referring Provider Internal Medicine; Visit Provider Internal Medicine
DX: E11.621 Type 2 diabetes mellitus with foot ulcer (principal); L97.509 Non-pressure chronic ulcer of other part of unspecified foot with unspecified severity; T81.89XA Other complications of procedures, not elsewhere classified, initial encounter; E11.9 Type 2 diabetes mellitus without complications; M20.62 Acquired deformities of toe(s), unspecified, left foot
CPT/HCPCS: 11042; 73660; 97597; 99213; G0463

== ENCOUNTER → 2020-08-15 | Outpatient (CLI) | payer MEDICARE, OTHER, SELFPAY ==
[2020-06-19 10:55] VITALS: BMI 31.6
[2020-08-14 10:06] VITALS: BMI 25.6
[2020-08-15 10:30] VITALS: BP 158/78; PULSE 60; RESP 16; TEMP 36.2; O2SAT 98; BMI 32.1
[2020-08-15] MEDS: 0.9% NaCl Peripheral Flush Adult/Peds IV (10:52)
[2020-08-15] MEDS: 0.9% NaCl IVPB Med Flush (250 mL) 15 ML IV (10:52)
[2020-08-15] MEDS: DiphenhydrAMINE 50 MG/ML Syringe 12.5 MG IV (11:02)
== END | disposition home or self-care (01) ==
LOC: MEDOUTP 10:35
PROVIDERS: PCP Family Medicine; Referring Provider Family Medicine; Visit Provider Family Medicine
DX: L40.52 Psoriatic arthritis mutilans (principal); M50.90 Cervical disc disorder, unspecified, unspecified cervical region; Z79.899 Other long term (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
CPT/HCPCS: 96365; 96366; 96375; J7050; A4216; Q5103

== ENCOUNTER 2020-09-04 11:07 | Outpatient (RCR) | payer MEDICARE, OTHER, SELFPAY ==
[2020-07-14 21:02] VITALS: BMI 25.6
[2020-09-04 10:08] VITALS: BMI 25.6
[2020-09-04 11:29] LABS: Erythrocyte Sedimentation Rate 2 mm/hr (0-20)
[2020-09-04 11:31] LABS: Absolute Lymphocyte Count 1.49 X10^3/uL (0.83-4.51); Absolute Neutrophil Count 3.2 X10^3/uL (2.0-7.7); Basophil# 0.04 X10^3/uL; Basophil% 0.7 % (0-1); Eosinophil# 0.54 X10^3/uL; Eosinophils% 9.2 % (0-5); Hematocrit 42.9 % (40-54); Hemoglobin 14.2 g/dL (13.0-16.5); Lymphocyte # 1.49 X10^3/ul (4.0); Lymphocyte % 25.3 % (19-41); Mean Corp Hgb Conc 33.1 g/dL (32-36); Mean Corpuscular Hgb 31.5 pg (27.0-32.0); Mean Corpuscular Volume 95.1 fL (80-94); Mean Platelet Vol. 10.4 fl (6.2-12.0); Monocyte# 0.58 X10^3/uL; Monocyte% 9.8 % (0-10); NRBC Flagged by Analyzer 0 % (0-5); Neutrophil # 3.22 X10^3/uL (2.7-7.7); Neutrophil % 54.5 % (47-70); Platelet Count 235 K/mm3 (150-450); RBC Distribution Width CV 14.3 % (11.6-14.6); RBC Distribution Width SD 49.2 fl (35.1-43.9); Red Blood Count 4.51 M/mm3 (4.6-6.2); White Blood Count 5.9 K/mm3 (4.4-11.0)
[2020-09-04 11:55] LABS: AST(SGOT) 40 U/L (15-37); Alanine Aminotransfer ALT/SGPT 53 U/L (16-61); CRP < 2.90 mg/L (0.0-3.0); Creatinine, Serum 1.26 mg/dL (0.70-1.30); EST Glomerular Filtration Rate 59 mL/min (>60); Est Glom Filt Rate - Afr Amer 71 mL/min (>60)
== END 2020-09-04 18:00 | disposition home or self-care (01) ==
LOC: LAB 11:07
PROVIDERS: Family Provider Family Medicine; PCP Family Medicine; Referring Provider Internal Medicine Rheumatology; Visit Provider Internal Medicine Rheumatology
DX: L40.50 Arthropathic psoriasis, unspecified (principal); L40.52 Psoriatic arthritis mutilans; L40.3 Pustulosis palmaris et plantaris; L85.3 Xerosis cutis; L21.9 Seborrheic dermatitis, unspecified; L30.9 Dermatitis, unspecified; M50.90 Cervical disc disorder, unspecified, unspecified cervical region; M17.0 Bilateral primary osteoarthritis of knee; L40.9 Psoriasis, unspecified; Z79.1 Long term (current) use of non-steroidal anti-inflammatories (NSAID); Z79.899 Other long term (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; E11.621 Type 2 diabetes mellitus with foot ulcer; T81.89XA Other complications of procedures, not elsewhere classified, initial encounter; Y83.8 Other surgical procedures as the cause of abnormal reaction of the patient, or of later complication, without mention of misadventure at the time of the procedure; L97.522 Non-pressure chronic ulcer of other part of left foot with fat layer exposed
CPT/HCPCS: 11042; 36415; 82565; 84450; 84460; 85025; 85652; 86140

== ENCOUNTER 2020-09-11 10:45 | Outpatient (RCR) | payer MEDICARE, OTHER, SELFPAY ==
[2020-08-07 09:10] VITALS: BMI 25.6
[2020-08-14 00:37] VITALS: BP 154/80; PULSE 72; RESP 16; TEMP 36.2
[2020-08-14 10:06] VITALS: BP 163/97; RESP 18; TEMP 36.2; BMI 25.6
[2020-08-14 11:01] VITALS: BP 150/57; PULSE 59; RESP 18
--- NOTE | 2020-08-14 13:03 | PCM.WC.PN ---
(1) Non-healing surgical wound Status: Chronic Current Visit: Yes Code(s): T81.89XA - Other complications of procedures, not elsewhere classified, initial encounter Comment: Left Great Toe ( Dorsum and Plantar ) (2) Diabetic foot ulcer associated with type 2 diabetes mellitus Status: Chronic Current Visit: Yes Code(s): E11.621 - Type 2 diabetes mellitus with foot ulcer; L97.509 - Non-pressure chronic ulcer of other part of unspecified foot with unspecified severity (3) Diabetes mellitus Status: Chronic Current Visit: Yes Code(s): E11.9 - Type 2 diabetes mellitus without complications Type of Wound Date of Service: 08/14/20 Chief Complaint: Non healing Left Great Toe Surgical wound History of Wound: Mr Hatch Was referred here by his restaurant busser due to nonhealing left great toe wound status post surgery. Surgery was on 25 March and per patient was uneventful however has had delayed healing of his surgical wound. He has been on a 3-week course of doxycycline and is currently on levofloxacin and has been applying antibiotic ointment daily. History of diabetes mellitus and per patient his last A1c was 7.6. He reports compliance with his medication. Denies chills, fever or otherwise feeling of unwell at this time. Progress of Wound: Stable, no new concerns. X-ray done suggestive of osteomyelitis. - Physical Exam Vital Signs Temp Pulse Resp BP 97.2 F L 59 L 18 150/57 H 08/14/20 10:06 08/14/20 11:01 08/14/20 11:01 08/14/20 11:01 General: Alert, Oriented x3, Cooperative, No apparent distress HEENT: Atraumatic, Normocephalic Oral: Moist Mucosa Neck: Supple Lungs: Normal air movement Abdomen: Non Tender, Obese Skin: Ulcer/ Wound Wound Measurements and Assessment WC - Nurse 1 - General Ulcer Measurement Start: 08/14/20 10:06 Freq: Status: Active Protocol: Activity Type Activity Date Activity User E-Sign Co-Sign Detail Recorded Client Recorded Date Recorded By Document 08/14/20 10:06 RB [id number] 08/14/20 10:20 RB 08/14/20 10:06 Wound Center Nurse 1 [Ulcer Assessment] 2. L plantar foot medial -Combined with other wound No -Current Size (cm) - Length 0.7 -Current Size (cm) - Width 0.5 -Current Size (cm) - Depth 0.2 -Total Square Cm 0.35 -Photo Taken No -Tunneling No -Undermining/Tunneling No -Circular Undermining No -Exudate Amt Small -Exudate Type Serosanguineous -Wound Margin Thickened -Granulation Amt Large (67-100%) -Granulation Quality Red -Slough/Fibrin No -Necrosis Amt None Present (0 %) -Structure Exposed N/A -Texture (Angie-wound Skin Appearance) Callus -Moisture (Angie-wound Skin Appearance Assessed ) -Color (Angie-wound Skin Appearance) Assessed -Temperature (Angie-wound Skin No Abnormality Appearance) (Pt Warm) -Tenderness on Palpation (Angie-wound No Skin Appearance) -Ulcer Cleansing Wound Cleanser -Foul Odor after Cleansing No -Anesthetic Used 5% Lidocaine Gel [Edema Assessment] -Lower Limb Edema Present Yes -Left Calf (cm) 40.4 -Left Ankle (cm) 24.6 WC - Nurse 2 - General Ulcer CM Notes Start: 08/14/20 10:06 Freq: Status: Active Protocol: Activity Type Activity Date Activity User E-Sign Co-Sign Detail Recorded Client Recorded Date Recorded By Document 08/14/20 10:36 MW [id number] 08/14/20 10:41 MW 08/14/20 10:36 Wound Center Nurse 2 [Procedure/Treatment] 2. L plantar foot medial -Time 10:39 -Correct Patient Yes -Correct Side, Site, Position Yes -Correct Procedure Yes -Procedure Performed No -Wound/Ulcer Outcome Not Healed -Ulcer Cleansing Not Cleansed -Foul Odor after Cleansing No -Bioengineered Tissue No -Bleeding Controlled with NA -Offloading No [See Physician Procedure note for Specifics] Pain Scale: 0-10 Numeric [Pain] -Is Patient Pain Free? Yes - Nurse 3 - General Ulcer D/C NN Start: 08/14/20 10:06 Freq: Status: Active Protocol: Activity Type Activity Date Activity User E-Sign Co-Sign Detail Recorded Client Recorded Date Recorded By Document 08/14/20 11:01 RB [id number] 08/14/20 11:03 RB 08/14/20 11:01 Wound Care Nurse 3 [Wound Dressing] 2. L plantar foot medial -Ulcer Cleansing Wound Cleanser -Primary Dressing Applied Promogran -Primary Dressing Covered/Secured Dry Gauze,Dry with Gauze & Roll Gauze,Secured with Tape -Promogran 1 [Post Procedure Tolerated] -Treatment Response Procedure Tolerated Well Vital Signs [Pulse] -Pulse Rate (60-100 beats/min) 59 L -Pulse Location Monitor [Respirations] -Respiratory Rate (12-18 breaths/min) 18 -Respiratory rate source Observation [Blood Pressure] -Blood Pressure (90/60-120/80 mm Hg) 150/57 H -Blood Pressure Mean (mm Hg) 88 -Source Monitor -Position Semi-Fowlers -Blood Pressure Location Left Arm Pain Scale: 0-10 Numeric [Pain] -Is Patient Pain Free? Yes WC - Visit Discharge [Visit Discharge Information] -Discharge Condition Stable -Ambulatory Status Ambulatory -Transportation Private Auto -Medication Reconcilliation completed No & provided to patient/care provider -Clinical Summary of Care Provided Yes Musculoskeletal: No Muscle Wasting Neurological: Cranial nerves II-XII grossly intact Psych/Mental Status: Normal Affect Debridement Note Post-Debridement Measurements/Treatment WC - Nurse 2 - General Ulcer CM Notes Start: 08/14/20 10:06 Freq: Status: Active Protocol: Activity Type Activity Date Activity User E-Sign Co-Sign Detail Recorded Client Recorded Date Recorded By Document 08/14/20 10:36 MW [id number] 08/14/20 10:41 MW 08/14/20 10:36 Wound Center Nurse 2 2. L plantar foot medial -Time 10:39 -Correct Patient Yes -Correct Side, Site, Position Yes -Correct Procedure Yes -Procedure Performed No -Wound/Ulcer Outcome Not Healed -Ulcer Cleansing Not Cleansed -Foul Odor after Cleansing No -Bioengineered Tissue No -Bleeding Controlled with NA -Offloading No Pain Scale: 0-10 Numeric Is Patient Pain Free? Yes - Nurse 3 - General Ulcer D/C NN Start: 08/14/20 10:06 Freq: Status: Active Protocol: Activity Type Activity Date Activity User E-Sign Co-Sign Detail Recorded Client Recorded Date Recorded By Document 08/14/20 11:01 RB [id number] 08/14/20 11:03 RB 08/14/20 11:01 Wound Care Nurse 3 2. L plantar foot medial -Ulcer Cleansing Wound Cleanser -Primary Dressing Applied Promogran -Primary Dressing Covered/Secured with Dry Gauze,Dry Gauze & Roll Gauze,Secured with Tape -Promogran 1 Treatment Response Procedure Tolerated Well Vital Signs Pulse Rate (60-100 beats/min) 59 L Pulse Location Monitor Respiratory Rate (12-18 breaths/min) 18 Respiratory rate source Observation Blood Pressure (90/60-120/80 mm Hg) 150/57 H Blood Pressure Mean (mm Hg) 88 Source Monitor Position Semi-Fowlers Blood Pressure Location Left Arm Pain Scale: 0-10 Numeric Is Patient Pain Free? Yes WC - Visit Discharge Discharge Condition Stable Ambulatory Status Ambulatory Transportation Private Auto Medication Reconcilliation completed & No provided to patient/care provider Clinical Summary of Care Provided Yes No debridement was completed today Assessment/Plan Active Problems (Last Reviewed 05/30/20 @ 08:41 by Olga Hammond) Diabetic foot ulcer associated with type 2 diabetes mellitus (Chronic) Non-healing surgical wound (Chronic) Left Great Toe ( Dorsum and Plantar ) Diabetes mellitus (Chronic) Assessment: Non healing post surgical wound. Left great toe deformity. Plan: Stable. Drainage said to have improved. X-ray done suggestive of osteomyelitis however patient with history of chronic osteomyelitis. He was advised to follow-up with his restaurant busser for management/next step. He states that he has never been on prolonged antibiotic course. For now, continue Promogran daily with OptiForm over top. Their questions were answered and they were advised to call with any further questions or concerns. Follow-up in a week. This note was generated with [employer] dictation software. It may contain incorrect words, spelling, and punctuation that were not noted in checking the note before signing. Office Visits / Consults: [id number] OV L3 Est
[2020-08-21 09:48] VITALS: BP 156/89; PULSE 78; RESP 16; TEMP 36.3; BMI 25.6
--- NOTE | 2020-08-21 12:18 | PCM.WC.PN ---
(1) Non-healing surgical wound Status: Chronic Current Visit: Yes Code(s): T81.89XA - Other complications of procedures, not elsewhere classified, initial encounter Comment: Left Great Toe ( Dorsum and Plantar ) (2) Diabetic foot ulcer associated with type 2 diabetes mellitus Status: Chronic Current Visit: Yes Code(s): E11.621 - Type 2 diabetes mellitus with foot ulcer; L97.509 - Non-pressure chronic ulcer of other part of unspecified foot with unspecified severity (3) Diabetes mellitus Status: Chronic Current Visit: Yes Code(s): E11.9 - Type 2 diabetes mellitus without complications Type of Wound Date of Service: 08/21/20 Chief Complaint: Non healing Left Great Toe Surgical wound History of Wound: Mr Hatch 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 Surgery was on 25 March and per patient was uneventful however has had delayed healing of his surgical wound. He has been on a 3-week course of doxycycline and is currently on levofloxacin and has been applying antibiotic ointment daily. History of diabetes mellitus and per patient his last A1c was 7.6. He reports compliance with his medication. Denies chills, fever or otherwise feeling of unwell at this time. Progress of Wound: Some worsening noted. 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 - Physical Exam Vital Signs Temp Pulse Resp BP 97.3 F L 78 16 156/89 H 08/21/20 09:48 08/21/20 09:48 08/21/20 09:48 08/21/20 09:48 General: Alert, Oriented x3, Cooperative, No apparent distress HEENT: Atraumatic, Normocephalic Oral: Moist Mucosa Neck: Supple Lungs: Normal air movement Abdomen: Non Tender, Obese Extremities: No cyanosis Skin: Ulcer/ Wound Wound Measurements and Assessment WC - Nurse 1 - General Ulcer Measurement Start: 08/14/20 10:06 Freq: Status: Active Protocol: Activity Type Activity Date Activity User E-Sign Co-Sign Detail Recorded Client Recorded Date Recorded By Document 08/21/20 09:48 BMF [id number] 08/21/20 09:51 BMF 08/21/20 09:48 Wound Center Nurse 1 [Ulcer Assessment] 2. L plantar foot medial -Combined with other wound No -Current Size (cm) - Length 0.4 -Current Size (cm) - Width 0.4 -Current Size (cm) - Depth 0.2 -Total Square Cm 0.16 -Photo Taken No -Epithelialization None Present -Tunneling No -Undermining/Tunneling No -Circular Undermining No -Exudate Amt Small -Exudate Type Serosanguineous -Wound Margin Distinct, Outline Attached -Granulation Amt Large (67-100%) -Granulation Quality Red -Slough/Fibrin No -Necrosis Amt None Present (0 %) -Texture (Angie-wound Skin Appearance) Assessed,Callus ,Scarring -Moisture (Angie-wound Skin Appearance Assessed,Dry/ ) Scaly -Color (Angie-wound Skin Appearance) Assessed -Temperature (Angie-wound Skin No Abnormality Appearance) (Pt Warm) -Tenderness on Palpation (Angie-wound No Skin Appearance) -Ulcer Cleansing Rinsed/ Irrigated with Saline -Foul Odor after Cleansing No -Anesthetic Used 5% Lidocaine Gel WC - Nurse 2 - General Ulcer CM Notes Start: 08/14/20 10:06 Freq: Status: Active Protocol: Activity Type Activity Date Activity User E-Sign Co-Sign Detail Recorded Client Recorded Date Recorded By Document 08/21/20 10:09 MW [id number] 08/21/20 10:15 MW 08/21/20 10:09 Wound Center Nurse 2 [Procedure/Treatment] -Time 10:11 -Correct Patient Yes -Correct Side, Site, Position Yes -Correct Procedure Yes -Procedure Performed Yes -Type of Procedure Debridement -Clinical Debridement Subcutaneous -Tissue Removed Subcutaneous -Post Debridement (cm) - Length 0.5 -Post Debridement (cm) - Width 0.5 -Post Debridement (cm) - Depth 0.2 -Total Square (Post) (cm) 0.25 -Area of Debridement (cm) - Length 0.5 -Area of Debridement (cm) - Width 0.5 -Total Square (Area) (cm) 0.25 -Tunneling No -Undermining/Tunneling No -Circular Undermining No -Wound/Ulcer Outcome Not Healed -Ulcer Cleansing Rinsed/ Irrigated with Saline -Foul Odor after Cleansing No -Bioengineered Tissue No -Bleeding Controlled with Pressure -Offloading No -Treatment Response Procedure Tolerated Well -Debridement - Subq, 1st 20sq cm Yes [See Physician Procedure note for Specifics] Pain Scale: 0-10 Numeric [Pain] -Is Patient Pain Free? Yes - Nurse 3 - General Ulcer D/C NN Start: 08/14/20 10:06 Freq: Status: Active Protocol: Activity Type Activity Date Activity User E-Sign Co-Sign Detail Recorded Client Recorded Date Recorded By Document 08/21/20 10:27 [facility] [id number] 08/21/20 10:29 [facility] 08/21/20 10:27 Wound Care Nurse 3 [Wound Dressing] 2. L plantar foot medial -Ulcer Cleansing Rinsed/ Irrigated with Saline -Foul Odor after Cleansing No -Primary Dressing Applied NonAdherent Contact Layer, Promogran -Primary Dressing Covered/Secured Secured with with Tape,Other -Other Covering ABD -Promogran 1 [Compression Applied] Left -Other APPLIED PTS OWN TUBI APPLICATION LEAD [Post Procedure Tolerated] -Treatment Response Procedure Tolerated Well Pain Scale: 0-10 Numeric [Pain] -Is Patient Pain Free? Yes - Visit Discharge [Visit Discharge Information] -Discharge Condition Stable -Ambulatory Status Ambulatory -Transportation Private Auto Musculoskeletal: No Muscle Wasting Neurological: Cranial nerves II-XII grossly intact Psych/Mental Status: Normal Affect Debridement Note Post-Debridement Measurements/Treatment - Nurse 2 - General Ulcer CM Notes Start: 08/14/20 10:06 Freq: Status: Active Protocol: Activity Type Activity Date Activity User E-Sign Co-Sign Detail Recorded Client Recorded Date Recorded By Document 08/14/20 10:36 MW [id number] 08/14/20 10:41 MW Document 08/21/20 10:09 MW [id number] 08/21/20 10:15 MW 08/14/20 08/21/20 10:36 10:09 Wound Center Nurse 2 2. L plantar foot medial -Time 10:39 10:11 -Correct Patient Yes Yes -Correct Side, Site, Position Yes Yes -Correct Procedure Yes Yes -Procedure Performed No Yes -Type of Procedure Debridement -Clinical Debridement Subcutaneous -Tissue Removed Subcutaneous -Post Debridement (cm) - Length 0.5 -Post Debridement (cm) - Width 0.5 -Post Debridement (cm) - Depth 0.2 -Total Square (Post) (cm) 0.25 -Area of Debridement (cm) - Length 0.5 -Area of Debridement (cm) - Width 0.5 -Total Square (Area) (cm) 0.25 -Tunneling No -Undermining/Tunneling No -Circular Undermining No -Wound/Ulcer Outcome Not Healed Not Healed -Ulcer Cleansing Not Cleansed Rinsed/ Irrigated with Saline -Foul Odor after Cleansing No No -Bioengineered Tissue No No -Bleeding Controlled with NA Pressure -Offloading No No -Treatment Response Procedure Tolerated Well -Debridement - Subq, 1st 20sq cm Yes Pain Scale: 0-10 Numeric Is Patient Pain Free? Yes Yes - Nurse 3 - General Ulcer D/C NN Start: 08/14/20 10:06 Freq: Status: Active Protocol: Activity Type Activity Date Activity User E-Sign Co-Sign Detail Recorded Client Recorded Date Recorded By Document 08/14/20 11:01 [id number] 08/14/20 11:03 RB Document 08/21/20 10:27 [facility] [id number] 08/21/20 10:29 [facility] 08/14/20 08/21/20 11:01 10:27 Wound Care Nurse 3 2. L plantar foot medial -Ulcer Cleansing Wound Cleanser Rinsed/ Irrigated with Saline -Foul Odor after Cleansing No -Primary Dressing Applied Promogran NonAdherent Contact Layer, Promogran -Primary Dressing Covered/Secured with Dry Gauze,Dry Secured with Gauze & Roll Tape,Other Gauze,Secured with Tape -Other Covering ABD -Promogran 1 1 Left -Other APPLIED PTS OWN TUBI APPLICATION LEAD Treatment Response Procedure Procedure Tolerated Well Tolerated Well Vital Signs Pulse Rate (60-100 beats/min) 59 L Pulse Location Monitor Respiratory Rate (12-18 breaths/min) 18 Respiratory rate source Observation Blood Pressure (90/60-120/80 mm Hg) 150/57 H Blood Pressure Mean (mm Hg) 88 Source Monitor Position Semi-Fowlers Blood Pressure Location Left Arm Pain Scale: 0-10 Numeric Is Patient Pain Free? Yes Yes WC - Visit Discharge Discharge Condition Stable Stable Ambulatory Status Ambulatory Ambulatory Transportation Private Auto Private Auto Medication Reconcilliation completed & No provided to patient/care provider Clinical Summary of Care Provided Yes Wound debrided: Left Great Toe ( Plantar ) Type of Debridement: Excisional debridement Anesthesia Used: 4% Lidocaine Solution Depth: Down to and including healthy tissue, in the subcutaneous layer Percentage of wound debrided: 100 Instrument Used: 3mm curette Tissue Removed: Slough and devitalized tissue Severity: Fat Layer Exposed Amount of bleeding with debridement: Mild Bleeding Controlled with: Pressure Patient tolerated procedure well Assessment/Plan Active Problems (Last Reviewed 05/30/20 @ 08:41 by Olga Hammond) Diabetic foot ulcer associated with type 2 diabetes mellitus (Chronic) Non-healing surgical wound (Chronic) Left Great Toe ( Dorsum and Plantar ) Diabetes mellitus (Chronic) Assessment: Non healing post surgical wound. Left great toe deformity. Plan: Debridement done as documented above, procedure was well-tolerated. 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 Believes findings are postsurgical changes. I have requested records. For now, continue Promogran daily with OptiForm over top. Offloading very strongly recommended. He was given a prescription for a knee walker. His questions were answered and he were advised to call with any further questions or concerns. Follow-up in a week. This note was generated with [employer]panda / hellof[employer] dictation software. It may contain incorrect words, spelling, and punctuation that were not noted in checking the note before signing. [id number]: [id number] [place] subq tissue 20 sq cm/<
[2020-08-28 10:22] VITALS: BP 148/61; PULSE 78; RESP 18; TEMP 36.3; BMI 25.6
--- NOTE | 2020-08-28 10:40 | PN.PCM_ITS ---
(1) Non-healing surgical wound Status: Chronic Code(s): T81.89XA - Other complications of procedures, not elsewhere classified, initial encounter Comment: Left Great Toe ( Dorsum and Plantar ) (2) Diabetic foot ulcer associated with type 2 diabetes mellitus Status: Chronic Code(s): E11.621 - Type 2 diabetes mellitus with foot ulcer; L97.509 - Non-pressure chronic ulcer of other part of unspecified foot with unspecified severity (3) Diabetes mellitus Status: Chronic Code(s): E11.9 - Type 2 diabetes mellitus without complications Type of Wound Date of Service: 08/28/20 Chief Complaint: Non healing Left Great Toe Surgical wound History of Wound: Mr aHtch 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 Surgery was on 25 March and per patient was uneventful however has had delayed healing of his surgical wou nd. He has been on a 3-week course of doxycycline and is currently on levofloxacin and has been applying antibiotic ointment daily. History of diabetes mellitus and per patient his last A1c was 7.6. He reports compliance with his medication. Denies chills, fever or otherwise feeling of unwell at this time. Progress of Wound: No concerns at this time. Plan is for surgery but patient states that he would like to wait till after the holiday. - Physical Exam Vital Signs Temp Pulse Resp BP 97.3 F L 78 18 148/61 H 08/28/20 10:22 08/28/20 10:22 08/28/20 10:22 08/28/20 10:22 General: Alert, Oriented x3, Cooperative, No apparent distress HEENT: Atraumatic, Normocephalic Oral: Moist Mucosa Lungs: Normal air movement Abdomen: Non Tender, Obese Extremities: No cyanosis Skin: Ulcer/ Wound Wound Measurements and Assessment WC - Nurse 1 - General Ulcer Measurement Start: 08/14/20 10:06 Freq: Status: Active Protocol: Activity Type Activity Date Activity User E-Sign Co-Sign Detail Recorded Client Recorded Date Recorded By Document 08/28/20 10:22 RB [id number] 08/28/20 10:25 RB 08/28/20 10:22 Wound Center Nurse 1 [Ulcer Assessment] 3. L plantar foot medial -Combined with other wound No -Current Size (cm) - Length 0.4 -Current Size (cm) - Width 0.4 -Current Size (cm) - Depth 0.3 -Total Square Cm 0.16 -Tunneling No -Undermining/Tunneling No -Circular Undermining No -Exudate Amt Small -Exudate Type Serosanguineous -Wound Margin Thickened -Granulation Amt Medium (34-66%) -Granulation Quality [address] -Slough/Fibrin Yes -Necrosis Amt Small (1-33%) -Necrotic Tissue Type Adherent Slough -Structure Exposed N/A -Texture (Angie-wound Skin Appearance) Assessed -Moisture (Angie-wound Skin Appearance Assessed ) -Color (Angie-wound Skin Appearance) Assessed -Temperature (Angie-wound Skin No Abnormality Appearance) (Pt Warm) -Tenderness on Palpation (Angie-wound No Skin Appearance) -Ulcer Cleansing Wound Cleanser -Foul Odor after Cleansing No -Anesthetic Used 5% Lidocaine Gel WC - Nurse 2 - General Ulcer CM Notes Start: 08/14/20 10:06 Freq: Status: Active Protocol: Activity Type Activity Date Activity User E-Sign Co-Sign Detail Recorded Client Recorded Date Recorded By Document 08/28/20 10:34 MW [id number] 08/28/20 10:36 MW 08/28/20 10:34 Wound Center Nurse 2 [Procedure/Treatment] -Time 10:34 -Correct Patient Yes -Correct Side, Site, Position Yes -Correct Procedure Yes -Procedure Performed Yes -Type of Procedure Debridement -Clinical Debridement Subcutaneous -Tissue Removed Subcutaneous -Post Debridement (cm) - Length 0.5 -Post Debridement (cm) - Width 0.5 -Post Debridement (cm) - Depth 0.2 -Total Square (Post) (cm) 0.25 -Area of Debridement (cm) - Length 0.5 -Area of Debridement (cm) - Width 0.5 -Total Square (Area) (cm) 0.25 -Tunneling No -Undermining/Tunneling No -Circular Undermining No -Wound/Ulcer Outcome Not Healed -Ulcer Cleansing Rinsed/ Irrigated with Saline -Foul Odor after Cleansing No -Bioengineered Tissue No -Bleeding Controlled with Pressure -Offloading No -Treatment Response Procedure Tolerated Well -Debridement - Subq, 1st 20sq cm Yes [See Physician Procedure note for Specifics] Pain Scale: 0-10 Numeric [Pain] -Is Patient Pain Free? Yes Musculoskeletal: No Muscle Wasting Neurological: Cranial nerves II-XII grossly intact Psych/Mental Status: Normal Affect Debridement Note Post-Debridement Measurements/Treatment WC - Nurse 2 - General Ulcer CM Notes Start: 08/14/20 10:06 Freq: Status: Active Protocol: Activity Type Activity Date Activity User E-Sign Co-Sign Detail Recorded Client Recorded Date Recorded By Document 08/14/20 10:36 MW [id number] 08/14/20 10:41 MW Document 08/21/20 10:09 MW [id number] 08/21/20 10:15 MW Document 08/28/20 10:34 MW [id number] 08/28/20 10:36 MW 08/14/20 08/21/20 08/28/20 10:36 10:09 10:34 Wound Center Nurse 2 3. L plantar foot medial -Time 10:39 10:11 10:34 -Correct Patient Yes Yes Yes -Correct Side, Site, Position Yes Yes Yes -Correct Procedure Yes Yes Yes -Procedure Performed No Yes Yes -Type of Procedure Debridement Debridement -Clinical Debridement Subcutaneous Subcutaneous -Tissue Removed Subcutaneous Subcutaneous -Post Debridement (cm) - Length 0.5 0.5 -Post Debridement (cm) - Width 0.5 0.5 -Post Debridement (cm) - Depth 0.2 0.2 -Total Square (Post) (cm) 0.25 0.25 -Area of Debridement (cm) - Length 0.5 0.5 -Area of Debridement (cm) - Width 0.5 0.5 -Total Square (Area) (cm) 0.25 0.25 -Tunneling No No -Undermining/Tunneling No No -Circular Undermining No No -Wound/Ulcer Outcome Not Healed Not Healed Not Healed -Ulcer Cleansing Not Cleansed Rinsed/ Rinsed/ Irrigated with Irrigated with Saline Saline -Foul Odor after Cleansing No No No -Bioengineered Tissue No No No -Bleeding Controlled with NA Pressure Pressure -Offloading No No No -Treatment Response Procedure Procedure Tolerated Well Tolerated Well -Debridement - Subq, 1st 20sq cm Yes Yes Pain Scale: 0-10 Numeric Is Patient Pain Free? Yes Yes Yes WC - Nurse 3 - General Ulcer D/C NN Start: 08/14/20 10:06 Freq: Status: Active Protocol: Activity Type Activity Date Activity User E-Sign Co-Sign Detail Recorded Client Recorded Date Recorded By Document 08/14/20 11:01 RB [id number] 08/14/20 11:03 RB Document 08/21/20 10:27 [facility] [id number] 08/21/20 10:29 BMF 08/14/20 08/21/20 11:01 10:27 Wound Care Nurse 3 3. L plantar foot medial -Ulcer Cleansing Wound Cleanser Rinsed/ Irrigated with Saline -Foul Odor after Cleansing No -Primary Dressing Applied Promogran NonAdherent Contact Layer, Promogran -Primary Dressing Covered/Secured with Dry Gauze,Dry Secured with Gauze & Roll Tape,Other Gauze,Secured with Tape -Other Covering ABD -Promogran 1 1 Left -Other APPLIED PTS [employer]WN [employer] Treatment Response Procedure Procedure Tolerated Well Tolerated Well Vital Signs Pulse Rate (60-100 beats/min) 59 L Pulse Location Monitor Respiratory Rate (12-18 breaths/min) 18 Respiratory rate source Observation Blood Pressure (90/60-120/80 mm Hg) 150/57 H Blood Pressure Mean (mm Hg) 88 Source Monitor Position Semi-Fowlers Blood Pressure Location Left Arm Pain Scale: 0-10 Numeric Is Patient Pain Free? Yes Yes WC - Visit Discharge Discharge Condition Stable Stable Ambulatory Status Ambulatory Ambulatory Transportation Private Auto Private Auto Medication Reconcilliation completed & No provided to patient/care provider Clinical Summary of Care Provided Yes Wound debrided: Left Great Toe Type of Debridement: Excisional debridement Anesthesia Used: 4% Lidocaine Solution Depth: Down to and including healthy tissue, in the subcutaneous layer Instrument Used: 3mm curette, 7mm curette Tissue Removed: Slough and devitalized tissue Severity: Fat Layer Exposed Amount of bleeding with debridement: Mild Bleeding Controlled with: Pressure Patient tolerated procedure well Assessment/Plan Assessment: Non healing post surgical wound. Left great toe deformity. Plan: Debridement done as documented above, procedure was well-tolerated. No significant change. As above, plan is for surgery due to pressure points in increased risk for reulceration. Patient however would like to wait till after the holidays. Promogran with OptiForm over top. Change every other day. Offloading very strongly recommended. He was given a prescription for a knee walker however cost prohibitive. His questions were answered and he were advised to call with any further questions or concerns. Follow-up in a week. This note was generated with [employer] software. It may contain incorrect words, spelling, and punctuation that were not noted in checking the note before signing. [id number]: [id number] Vannessa subq tissue 20 sq cm/<
[2020-09-04 10:08] VITALS: BP 152/93; PULSE 78; RESP 18; TEMP 36.1
[2020-09-04 10:43] VITALS: BP 163/75; PULSE 73
--- NOTE | 2020-09-04 12:26 | PN.PCM_ITS ---
(1) Non-healing surgical wound Status: Chronic Code(s): T81.89XA - Other complications of procedures, not elsewhere classified, initial encounter Comment: Left Great Toe ( Dorsum and Plantar ) (2) Diabetic foot ulcer associated with type 2 diabetes mellitus Status: Chronic Code(s): E11.621 - Type 2 diabetes mellitus with foot ulcer; L97.509 - Non-pressure chronic ulcer of other part of unspecified foot with unspecified severity (3) Diabetes mellitus Status: Chronic Code(s): E11.9 - Type 2 diabetes mellitus without complications Type of Wound Date of Service: 09/04/20 Chief Complaint: Non healing Left Great Toe Surgical wound History of Wound: Mr Hatch Was referred here by his 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 Surgery was on 25 March and per patient was uneventful however has had delayed healing of his surgical wou nd. He has been on a 3-week course of doxycycline and is currently on levofloxacin and has been applying antibiotic ointment daily. History of diabetes mellitus and per patient his last A1c was 7.6. He reports compliance with his medication. Denies chills, fever or otherwise feeling of unwell at this time. Progress of Wound: No concerns at this time. Plan is for surgery but patient states that he would like to wait till after the holiday. Some improvement noted. - Physical Exam Vital Signs Temp Pulse Resp BP 97 F L 73 18 163/75 H 09/04/20 10:08 09/04/20 10:43 09/04/20 10:08 09/04/20 10:43 General: Alert, Oriented x3, Cooperative, No apparent distress HEENT: Atraumatic, Normocephalic Oral: Moist Mucosa Neck: Supple Lungs: Normal air movement Extremities: No cyanosis Skin: Ulcer/ Wound Wound Measurements and Assessment WC - Nurse 1 - General Ulcer Measurement Start: 08/14/20 10:06 Freq: Status: Active Protocol: Activity Type Activity Date Activity User E-Sign Co-Sign Detail Recorded Client Recorded Date Recorded By Document 09/04/20 10:08 RB [id number] 09/04/20 10:11 RB 09/04/20 10:08 Wound Center Nurse 1 [Ulcer Assessment] 3. L plantar foot medial -Combined with other wound No -Current Size (cm) - Length 0.4 -Current Size (cm) - Width 0.4 -Current Size (cm) - Depth 0.2 -Total Square Cm 0.16 -Tunneling No -Undermining/Tunneling No -Circular Undermining No -Exudate Amt Small -Exudate Type Serosanguineous -Wound Margin Thickened -Granulation Amt Medium (34-66%) -Granulation Quality [place] -Slough/Fibrin Yes -Necrosis Amt Small (1-33%) -Necrotic Tissue Type Adherent Slough -Structure Exposed N/A -Texture (Angie-wound Skin Appearance) Assessed -Moisture (Angie-wound Skin Appearance Assessed ) -Color (Angie-wound Skin Appearance) Assessed -Temperature (Angie-wound Skin No Abnormality Appearance) (Pt Warm) -Tenderness on Palpation (Angie-wound No Skin Appearance) -Ulcer Cleansing Wound Cleanser -Foul Odor after Cleansing No -Anesthetic Used 5% Lidocaine Gel [Edema Assessment] -Lower Limb Edema Present Yes -Left Calf (cm) 41.2 -Left Ankle (cm) 25 WC - Nurse 2 - General Ulcer CM Notes Start: 08/14/20 10:06 Freq: Status: Active Protocol: Activity Type Activity Date Activity User E-Sign Co-Sign Detail Recorded Client Recorded Date Recorded By Document 09/04/20 10:31 MW [id number] 09/04/20 10:35 MW 09/04/20 10:31 Wound Center Nurse 2 [Procedure/Treatment] 3. L plantar foot medial -Time 10:32 -Correct Patient Yes -Correct Side, Site, Position Yes -Correct Procedure Yes -Procedure Performed Yes -Type of Procedure Debridement -Clinical Debridement Subcutaneous -Tissue Removed Subcutaneous -Post Debridement (cm) - Length 0.4 -Post Debridement (cm) - Width 0.4 -Post Debridement (cm) - Depth 0.2 -Total Square (Post) (cm) 0.16 -Area of Debridement (cm) - Length 0.4 -Area of Debridement (cm) - Width 0.4 -Total Square (Area) (cm) 0.16 -Tunneling No -Undermining/Tunneling No -Circular Undermining No -Wound/Ulcer Outcome Not Healed -Ulcer Cleansing Rinsed/ Irrigated with Saline -Foul Odor after Cleansing No -Bioengineered Tissue No -Bleeding Controlled with Pressure -Offloading No -Treatment Response Procedure Tolerated Well -Debridement - Subq, 1st 20sq cm Yes [See Physician Procedure note for Specifics] Pain Scale: 0-10 Numeric [Pain] -Is Patient Pain Free? Yes - Nurse 3 - General Ulcer D/C NN Start: 08/14/20 10:06 Freq: Status: Active Protocol: Activity Type Activity Date Activity User E-Sign Co-Sign Detail Recorded Client Recorded Date Recorded By Document 09/04/20 10:43 RB [id number] 09/04/20 10:45 RB 09/04/20 10:43 Wound Care Nurse 3 [Wound Dressing] 3. L plantar foot medial -Ulcer Cleansing Rinsed/ Irrigated with Saline -Primary Dressing Applied NonAdherent Contact Layer, Promogran -Other Dressing abd for padding -Primary Dressing Covered/Secured Dry Gauze, with Secured with Tape -Promogran 1 [Compression Applied] Left -Other pt own double layer Vital Signs [Pulse] -Pulse Rate (60-100 beats/min) 73 -Pulse Location Monitor [Blood Pressure] -Blood Pressure (90/60-120/80 mm Hg) 163/75 H -Blood Pressure Mean (mm Hg) 104 -Source Monitor Pain Scale: 0-10 Numeric [Pain] -Is Patient Pain Free? Yes - Visit Discharge [Visit Discharge Information] -Discharge Condition Stable -Ambulatory Status Ambulatory -Transportation Private Auto -Medication Reconcilliation completed No & provided to patient/care provider -Clinical Summary of Care Provided Yes Musculoskeletal: No Muscle Wasting Neurological: Cranial nerves II-XII grossly intact Psych/Mental Status: Normal Affect Debridement Note Post-Debridement Measurements/Treatment - Nurse 2 - General Ulcer CM Notes Start: 08/14/20 10:06 Freq: Status: Active Protocol: Activity Type Activity Date Activity User E-Sign Co-Sign Detail Recorded Client Recorded Date Recorded By Document 08/14/20 10:36 MW [id number] 08/14/20 10:41 MW Document 08/21/20 10:09 MW [id number] 08/21/20 10:15 MW Document 08/28/20 10:34 MW [id number] 08/28/20 10:36 MW Document 09/04/20 10:31 MW [id number] 09/04/20 10:35 MW 08/14/20 08/21/20 08/28/20 10:36 10:09 10:34 Wound Center Nurse 2 3. L plantar foot medial -Time 10:39 10:11 10:34 -Correct Patient Yes Yes Yes -Correct Side, Site, Position Yes Yes Yes -Correct Procedure Yes Yes Yes -Procedure Performed No Yes Yes -Type of Procedure Debridement Debridement -Clinical Debridement Subcutaneous Subcutaneous -Tissue Removed Subcutaneous Subcutaneous -Post Debridement (cm) - Length 0.5 0.5 -Post Debridement (cm) - Width 0.5 0.5 -Post Debridement (cm) - Depth 0.2 0.2 -Total Square (Post) (cm) 0.25 0.25 -Area of Debridement (cm) - Length 0.5 0.5 -Area of Debridement (cm) - Width 0.5 0.5 -Total Square (Area) (cm) 0.25 0.25 -Tunneling No No -Undermining/Tunneling No No -Circular Undermining No No -Wound/Ulcer Outcome Not Healed Not Healed Not Healed -Ulcer Cleansing Not Cleansed Rinsed/ Rinsed/ Irrigated with Irrigated with Saline Saline -Foul Odor after Cleansing No No No -Bioengineered Tissue No No No -Bleeding Controlled with NA Pressure Pressure -Offloading No No No -Treatment Response Procedure Procedure Tolerated Well Tolerated Well -Debridement - Subq, 1st 20sq cm Yes Yes Pain Scale: 0-10 Numeric Is Patient Pain Free? Yes Yes Yes 09/04/20 10:31 Wound Center Nurse 2 3. L plantar foot medial -Time 10:32 -Correct Patient Yes -Correct Side, Site, Position Yes -Correct Procedure Yes -Procedure Performed Yes -Type of Procedure Debridement -Clinical Debridement Subcutaneous -Tissue Removed Subcutaneous -Post Debridement (cm) - Length 0.4 -Post Debridement (cm) - Width 0.4 -Post Debridement (cm) - Depth 0.2 -Total Square (Post) (cm) 0.16 -Area of Debridement (cm) - Length 0.4 -Area of Debridement (cm) - Width 0.4 -Total Square (Area) (cm) 0.16 -Tunneling No -Undermining/Tunneling No -Circular Undermining No -Wound/Ulcer Outcome Not Healed -Ulcer Cleansing Rinsed/ Irrigated with Saline -Foul Odor after Cleansing No -Bioengineered Tissue No -Bleeding Controlled with Pressure -Offloading No -Treatment Response Procedure Tolerated Well -Debridement - Subq, 1st 20sq cm Yes Pain Scale: 0-10 Numeric Is Patient Pain Free? Yes WC - Nurse 3 - General Ulcer D/C NN Start: 08/14/20 10:06 Freq: Status: Active Protocol: Activity Type Activity Date Activity User E-Sign Co-Sign Detail Recorded Client Recorded Date Recorded By Document 08/14/20 11:01 RB [id number] 08/14/20 11:03 RB Document 08/21/20 10:27 [facility] [id number] 08/21/20 10:29 [facility] Document 09/04/20 10:43 RB [id number] 09/04/20 10:45 RB 08/14/20 08/21/20 09/04/20 11:01 10:27 10:43 Wound Care Nurse 3 3. L plantar foot medial -Ulcer Cleansing Wound Cleanser Rinsed/ Rinsed/ Irrigated with Irrigated with Saline Saline -Foul Odor after Cleansing No -Primary Dressing Applied Promogran NonAdherent NonAdherent Contact Layer, Contact Layer, Promogran Promogran -Other Dressing abd for padding -Primary Dressing Covered/Secured with Dry Gauze,Dry Secured with Dry Gauze, Gauze & Roll Tape,Other Secured with Gauze,Secured Tape with Tape -Other Covering ABD -Promogran 1 1 1 Left -Other APPLIED PTS OWN pt own double TUBI [employer] WELDER layer Treatment Response Procedure Procedure Tolerated Well Tolerated Well Vital Signs Pulse Rate (60-100 beats/min) 59 L 73 Pulse Location Monitor Monitor Respiratory Rate (12-18 breaths/min) 18 Respiratory rate source Observation Blood Pressure (90/60-120/80 mm Hg) 150/57 H 163/75 H Blood Pressure Mean (mm Hg) 88 104 Source Monitor Monitor Position Semi-Fowlers Blood Pressure Location Left Arm Pain Scale: 0-10 Numeric Is Patient Pain Free? Yes Yes Yes WC - Visit Discharge Discharge Condition Stable Stable Stable Ambulatory Status Ambulatory Ambulatory Ambulatory Transportation Private Auto Private Auto Private Auto Medication Reconcilliation completed & No No provided to patient/care provider Clinical Summary of Care Provided Yes Yes Wound debrided: Left Great Toe Type of Debridement: Excisional debridement Anesthesia Used: 4% Lidocaine Solution Depth: Down to and including healthy tissue, in the subcutaneous layer Percentage of wound debrided: 100 Instrument Used: 3mm curette Tissue Removed: Slough and devitalized tissue Severity: Fat Layer Exposed Amount of bleeding with debridement: Mild Bleeding Controlled with: Pressure Patient tolerated procedure well Assessment/Plan Active Problems (Last Reviewed 05/30/20 @ 08:41 by Olga Hammond) Diabetic foot ulcer associated with type 2 diabetes mellitus (Chronic) Non-healing surgical wound (Chronic) Left Great Toe ( Dorsum and Plantar ) Diabetes mellitus (Chronic) Assessment: Non healing post surgical wound. Left great toe deformity. Plan: Debridement done as documented above, procedure was well-tolerated. Some improvement noted. As above, plan is for surgery due to pressure points and increased risk for reulceration. Patient however would like to wait till after the holidays. Continue Promogran with OptiForm over top. Change every other day. Offloading very strongly recommended. He was given a prescription for a knee walker however cost prohibitive. His questions were answered and he were advised to call with any further questions or concerns. Follow-up in a week. This note was generated with [employer] dictation software. It may contain incorrect words, spelling, and punctuation that were not noted in checking the note before signing. [id number]: [id number] [place] subq tissue 20 sq cm/<
[2020-09-11 10:51] VITALS: BP 166/89; PULSE 75; RESP 18; TEMP 36.6; BMI 25.6
--- NOTE | 2020-09-11 12:31 | PCM.WC.PN ---
(1) Non-healing surgical wound Status: Chronic Code(s): T81.89XA - Other complications of procedures, not elsewhere classified, initial encounter Comment: Left Great Toe ( Dorsum and Plantar ) (2) Diabetic foot ulcer associated with type 2 diabetes mellitus Status: Chronic Code(s): E11.621 - Type 2 diabetes mellitus with foot ulcer; L97.509 - Non-pressure chronic ulcer of other part of unspecified foot with unspecified severity (3) Diabetes mellitus Status: Chronic Code(s): E11.9 - Type 2 diabetes mellitus without complications Type of Wound Date of Service: 09/11/20 Chief Complaint: Non healing Left Great Toe Surgical wound History of Wound: Mr Htach Was referred here by his general foundry worker due to nonhealing left great toe wound status post surgery. Surgery was on 25 March and per patient was uneventful however has had delayed healing of his surgical wound. He has been on a 3-week course of doxycycline and is currently on levofloxacin and has been applying antibiotic ointment daily. History of diabetes mellitus and per patient his last A1c was 7.6. He reports compliance with his medication. Denies chills, fever or otherwise feeling of unwell at this time. Progress of Wound: Worsening/new areas of ulceration noted on the plantar surface of his great toe. Denies any known precipitating factor. Great toe also with increased redness. He denies chills, fever or feeling of unwell. - Physical Exam Vital Signs Temp Pulse Resp BP 98 F 75 18 166/89 H 09/11/20 10:51 09/11/20 10:51 09/11/20 10:51 09/11/20 10:51 General: Alert, Oriented x3, Cooperative, No apparent distress HEENT: Atraumatic, Normocephalic Oral: Moist Mucosa Neck: Supple Lungs: Normal air movement Abdomen: Non Tender, Obese Extremities: No cyanosis, Edema Skin: Ulcer/ Wound Wound Measurements and Assessment WC - Nurse 1 - General Ulcer Measurement Start: 08/14/20 10:06 Freq: Status: Active Protocol: Activity Type Activity Date Activity User E-Sign Co-Sign Detail Recorded Client Recorded Date Recorded By Document 09/11/20 10:51 RB [id number] 09/11/20 11:02 RB 09/11/20 10:51 Wound Center Nurse 1 [Ulcer Assessment] 3. L plantar foot medial -Combined with other wound No -Current Size (cm) - Length 0.4 -Current Size (cm) - Width 0.4 -Current Size (cm) - Depth 0.3 -Total Square Cm 0.16 -Photo Taken No -Epithelialization None Present -Tunneling No -Undermining/Tunneling Yes -Undermining/Tunneling Starts (O' 1 clock) -Undermining/Tunneling Ends (O'clock) 2 -Maximum Distance (cm) 0.5 -Circular Undermining No -Exudate Amt Small -Exudate Type Serosanguineous -Wound Margin Thickened -Granulation Amt Medium (34-66%) -Granulation Quality [place] -Slough/Fibrin Yes -Necrosis Amt Small (1-33%) -Necrotic Tissue Type Adherent Slough -Structure Exposed N/A -Texture (Angie-wound Skin Appearance) Callus -Moisture (Angie-wound Skin Appearance Assessed ) -Color (Angie-wound Skin Appearance) Assessed, Ecchymosis -Temperature (Angie-wound Skin No Abnormality Appearance) (Pt Warm) -Tenderness on Palpation (Angie-wound No Skin Appearance) -Ulcer Cleansing Rinsed/ Irrigated with Saline -Foul Odor after Cleansing No -Anesthetic Used 4% Lidocaine Solution [Edema Assessment] -Lower Limb Edema Present Yes -Left Calf (cm) 41.5 -Left Ankle (cm) 25.7 WC - Nurse 2 - General Ulcer CM Notes Start: 08/14/20 10:06 Freq: Status: Active Protocol: Activity Type Activity Date Activity User E-Sign Co-Sign Detail Recorded Client Recorded Date Recorded By Document 09/11/20 11:12 MW [id number] 09/11/20 11:16 MW 09/11/20 11:12 Wound Center Nurse 2 [Procedure/Treatment] 3. L plantar foot medial -Time 11:12 -Correct Patient Yes -Correct Side, Site, Position Yes -Correct Procedure Yes -Procedure Performed No -Tunneling No -Undermining/Tunneling No -Circular Undermining No -Wound/Ulcer Outcome Not Healed -Ulcer Cleansing Rinsed/ Irrigated with Saline -Bleeding Controlled with NA -Offloading No -Treatment Response Procedure Tolerated Well [See Physician Procedure note for Specifics] Pain Scale: 0-10 Numeric [Pain] -Is Patient Pain Free? Yes - Nurse 3 - General Ulcer D/C NN Start: 08/14/20 10:06 Freq: Status: Active Protocol: Activity Type Activity Date Activity User E-Sign Co-Sign Detail Recorded Client Recorded Date Recorded By Document 09/11/20 11:26 [facility] [id number] 09/11/20 11:26 [facility] 09/11/20 11:26 Wound Care Nurse 3 [Wound Dressing] 3. L plantar foot medial -Ulcer Cleansing Rinsed/ Irrigated with Saline -Foul Odor after Cleansing No -Primary Dressing Applied NonAdherent Contact Layer, Other -Other Dressing promogran, -Primary Dressing Covered/Secured Dry Gauze & with Roll Gauze, Secured with Tape [Compression Applied] Left -Other applied pts own tubigrip Pain Scale: 0-10 Numeric [Pain] -Is Patient Pain Free? Yes WC - Visit Discharge [Visit Discharge Information] -Discharge Condition Stable -Ambulatory Status Ambulatory -Transportation Private Auto -Accompanied by Musculoskeletal: No Muscle Wasting Neurological: Cranial nerves II-XII grossly intact Psych/Mental Status: Normal Affect Debridement Note Post-Debridement Measurements/Treatment WC - Nurse 2 - General Ulcer CM Notes Start: 08/14/20 10:06 Freq: Status: Active Protocol: Activity Type Activity Date Activity User E-Sign Co-Sign Detail Recorded Client Recorded Date Recorded By Document 08/14/20 10:36 MW [id number] 08/14/20 10:41 MW Document 08/21/20 10:09 MW [id number] 08/21/20 10:15 MW Document 08/28/20 10:34 MW [id number] 08/28/20 10:36 MW Document 09/04/20 10:31 MW [id number] 09/04/20 10:35 MW Document 09/11/20 11:12 MW [id number] 09/11/20 11:16 MW 08/14/20 08/21/20 08/28/20 10:36 10:09 10:34 Wound Center Nurse 2 3. L plantar foot medial -Time 10:39 10:11 10:34 -Correct Patient Yes Yes Yes -Correct Side, Site, Position Yes Yes Yes -Correct Procedure Yes Yes Yes -Procedure Performed No Yes Yes -Type of Procedure Debridement Debridement -Clinical Debridement Subcutaneous Subcutaneous -Tissue Removed Subcutaneous Subcutaneous -Post Debridement (cm) - Length 0.5 0.5 -Post Debridement (cm) - Width 0.5 0.5 -Post Debridement (cm) - Depth 0.2 0.2 -Total Square (Post) (cm) 0.25 0.25 -Area of Debridement (cm) - Length 0.5 0.5 -Area of Debridement (cm) - Width 0.5 0.5 -Total Square (Area) (cm) 0.25 0.25 -Tunneling No No -Undermining/Tunneling No No -Circular Undermining No No -Wound/Ulcer Outcome Not Healed Not Healed Not Healed -Ulcer Cleansing Not Cleansed Rinsed/ Rinsed/ Irrigated with Irrigated with Saline Saline -Foul Odor after Cleansing No No No -Bioengineered Tissue No No No -Bleeding Controlled with NA Pressure Pressure -Offloading No No No -Treatment Response Procedure Procedure Tolerated Well Tolerated Well -Debridement - Subq, 1st 20sq cm Yes Yes Pain Scale: 0-10 Numeric Is Patient Pain Free? Yes Yes Yes 09/04/20 09/11/20 10:31 11:12 Wound Center Nurse 2 3. L plantar foot medial -Time 10:32 11:12 -Correct Patient Yes Yes -Correct Side, Site, Position Yes Yes -Correct Procedure Yes Yes -Procedure Performed Yes No -Type of Procedure Debridement -Clinical Debridement Subcutaneous -Tissue Removed Subcutaneous -Post Debridement (cm) - Length 0.4 -Post Debridement (cm) - Width 0.4 -Post Debridement (cm) - Depth 0.2 -Total Square (Post) (cm) 0.16 -Area of Debridement (cm) - Length 0.4 -Area of Debridement (cm) - Width 0.4 -Total Square (Area) (cm) 0.16 -Tunneling No No -Undermining/Tunneling No No -Circular Undermining No No -Wound/Ulcer Outcome Not Healed Not Healed -Ulcer Cleansing Rinsed/ Rinsed/ Irrigated with Irrigated with Saline Saline -Foul Odor after Cleansing No -Bioengineered Tissue No -Bleeding Controlled with Pressure NA -Offloading No No -Treatment Response Procedure Procedure Tolerated Well Tolerated Well -Debridement - Subq, 1st 20sq cm Yes Pain Scale: 0-10 Numeric Is Patient Pain Free? Yes Yes - Nurse 3 - General Ulcer D/C NN Start: 08/14/20 10:06 Freq: Status: Active Protocol: Activity Type Activity Date Activity User E-Sign Co-Sign Detail Recorded Client Recorded Date Recorded By Document 08/14/20 11:01 RB [id number] 08/14/20 11:03 RB Document 08/21/20 10:27 [facility] [id number] 08/21/20 10:29 [facility] Document 09/04/20 10:43 RB [id number] 09/04/20 10:45 RB Document 09/11/20 11:26 [facility] [id number] 09/11/20 11:26 [facility] 08/14/20 08/21/20 09/04/20 11:01 10:27 10:43 Wound Care Nurse 3 3. L plantar foot medial -Ulcer Cleansing Wound Cleanser Rinsed/ Rinsed/ Irrigated with Irrigated with Saline Saline -Foul Odor after Cleansing No -Primary Dressing Applied Promogran NonAdherent NonAdherent Contact Layer, Contact Layer, Promogran Promogran -Other Dressing abd for padding -Primary Dressing Covered/Secured with Dry Gauze,Dry Secured with Dry Gauze, Gauze & Roll Tape,Other Secured with Gauze,Secured Tape with Tape -Other Covering ABD -Promogran 1 1 1 Left -Other APPLIED PTS OWN pt own double TUBI [employer]PER layer Treatment Response Procedure Procedure Tolerated Well Tolerated Well Vital Signs Pulse Rate (60-100 beats/min) 59 L 73 Pulse Location Monitor Monitor Respiratory Rate (12-18 breaths/min) 18 Respiratory rate source Observation Blood Pressure (90/60-120/80 mm Hg) 150/57 H 163/75 H Blood Pressure Mean (mm Hg) 88 104 Source Monitor Monitor Position Semi-Fowlers Blood Pressure Location Left Arm Pain Scale: 0-10 Numeric Is Patient Pain Free? Yes Yes Yes WC - Visit Discharge Discharge Condition Stable Stable Stable Ambulatory Status Ambulatory Ambulatory Ambulatory Transportation Private Auto Private Auto Private Auto Accompanied by Medication Reconcilliation completed & No No provided to patient/care provider Clinical Summary of Care Provided Yes Yes 09/11/20 11:26 Wound Care Nurse 3 3. L plantar foot medial -Ulcer Cleansing Rinsed/ Irrigated with Saline -Foul Odor after Cleansing No -Primary Dressing Applied NonAdherent Contact Layer, Other -Other Dressing promogran, -Primary Dressing Covered/Secured with Dry Gauze & Roll Gauze, Secured with Tape -Other Covering -Promogran Left -Other applied pts own tubigrip Treatment Response Vital Signs Pulse Rate (60-100 beats/min) Pulse Location Respiratory Rate (12-18 breaths/min) Respiratory rate source Blood Pressure (90/60-120/80 mm Hg) Blood Pressure Mean (mm Hg) Source Position Blood Pressure Location Pain Scale: 0-10 Numeric Is Patient Pain Free? Yes WC - Visit Discharge Discharge Condition Stable Ambulatory Status Ambulatory Transportation Private Auto Accompanied by Medication Reconcilliation completed & provided to patient/care provider Clinical Summary of Care Provided No debridement was completed today Assessment/Plan Active Problems (Last Reviewed 05/30/20 @ 08:41 by Olga Hammond) Diabetic foot ulcer associated with type 2 diabetes mellitus (Chronic) Non-healing surgical wound (Chronic) Left Great Toe ( Dorsum and Plantar ) Diabetes mellitus (Chronic) Assessment: Non healing post surgical wound. Left great toe deformity. Plan: No debridement completed today. New areas of ulceration/concern noted. Strongly advised to follow-up with his general foundry worker and go ahead with surgery as recommended. For now, continue Promogran with OptiForm over top. Change every other day. Offloading very strongly recommended. He was given a prescription for a knee walker however cost prohibitive. His questions were answered and he were advised to call with any further questions or concerns. If no surgery done, may follow-up in a week. This note was generated with [employer] dictation software. It may contain incorrect words, spelling, and punctuation that were not noted in checking the note before signing. Office Visits / Consults: [id number] OV L3 Est
== END 2020-09-13 23:59 ==
LOC: WC 10:45
PROVIDERS: PCP Family Medicine; Referring Provider Internal Medicine; Visit Provider Internal Medicine
DX: E11.621 Type 2 diabetes mellitus with foot ulcer (principal); T81.89XA Other complications of procedures, not elsewhere classified, initial encounter; Y83.8 Other surgical procedures as the cause of abnormal reaction of the patient, or of later complication, without mention of misadventure at the time of the procedure; L97.522 Non-pressure chronic ulcer of other part of left foot with fat layer exposed
CPT/HCPCS: 11042; 99213; G0463

== ENCOUNTER → 2020-09-19 10:22 | Outpatient (CLI) | payer MEDICARE, OTHER, SELFPAY ==
[2020-09-18 10:40] VITALS: BMI 32.1
[2020-09-19 11:32] LABS: BNP,B-Type NATRIURETIC PEPTIDE 138.9 pg/mL (0-100)
[2020-09-19 11:38] LABS: AST(SGOT) 32 U/L (15-37); Alanine Aminotransfer ALT/SGPT 50 U/L (16-61); Albumin, Serum 3.8 g/dL (3.2-5.0); Alkaline Phosphatase 70 U/L (45-117); Bilirubin, Direct 0.19 mg/dL (0.00-0.30); Cholesterol 142 mg/dL (200); High Density Lipoprotein 52 mg/dL; Protein, Total 7.8 g/dL (6.4-8.2); Triglycerides 80 mg/dL; Very Low Density Lipoprotein 16 mg/dL (5-40)
== END ==
PROVIDERS: PCP Family Medicine; Visit Provider Nurse Practitioner Family
DX: E78.5 Hyperlipidemia, unspecified (principal); E11.621 Type 2 diabetes mellitus with foot ulcer; L97.509 Non-pressure chronic ulcer of other part of unspecified foot with unspecified severity; R06.02 Shortness of breath
CPT/HCPCS: 36415; 80061; 80076; 83880

== ENCOUNTER 2020-09-26 09:26 | Day surgery (SDC) | payer MEDICARE, OTHER, SELFPAY ==
[2020-09-11 12:35] VITALS: BMI 32.1
[2020-09-18 10:40] VITALS: BMI 32.1
[2020-09-26] VITALS (7 sets, daily range): BP systolic 119–158; BP diastolic 65–79; PULSE 65–87; RESP 16–17; TEMP 36.5–37; O2SAT 94–100; BMI 31.5
[2020-09-26] MEDS: Lactated Ringers 1,000 ML 100 ML IV (11:30)
[2020-09-26 11:51] LABS: Bedside Glucose 165 mg/dL (70-110)
[2020-09-26] MEDS: Bupivacaine Mpf 0.5% 30 ML VIAL (12:00)
--- NOTE | 2020-09-26 14:18 | OP.PCM_ITS ---
Report of Operation Date of Procedure: 09/26/20 Pre-Operative Diagnosis: 1. Hammertoe third digit right foot #2 chronic u lceration with underlying bony deformity left great toe #3 spontaneous rupture of the anterior tibial tendon left leg Post-Operative Diagnosis: Same Surgery/Procedure Performed:: 1. Arthroplasty third toe right foot #2 ostectomy plantar left great toe #3 repair with free graft tibialis anterior tendon left leg #4 application of posterior splint Description of Surgical Findings:: Patient was brought to the operating room and placed on the table in supine position. 20 mils of 1% lidocaine plain and half percent Marcaine plain mixed in a one-to-one ratio was injected in the surgical areas. Both feet were prepped and draped in normal sterile fashion the right foot was elevated and exsanguinated to semielliptical incisions were made over the distal interphalangeal joint of the third toe right foot. The head of the intermediate phalanx was delivered through the wound and resected. The position of the toe was corrected and sutured with simple 3-0 nylon. Dry sterile dressing was applied. Tourniquet was deflated and full vascular flow was restored to the toe. A dry sterile dressing was applied. Attention was directed to the left foot. A plantar medial incision was made on the great toe adjacent to the chronic plantar ulceration. Sharp dissection was carried down to bone freeing the periosteum and capsule from side to side. A very prominent bony surface was identified underneath the chronic ulceration and it was resected with a rongeur and smoothed with a rasp. The wound was flushed with copious amounts normal saline solution. Deep tissue was closed with 3-0 Vicryl. Skin was closed with 3-0 nylon. Attention was now directed to the anterior tibial tendon area where an incision was made along its course from about 8 cm above the ankle joint to its origin. Carefully dissected bluntly taking care to retract and preserve all vital structures and Bovie bleeders as necessary. Prior to the beginning of this procedure the left leg was elevated and exsanguinated and the tourniquet was inflated over the calf. There was hematoma on the ruptured proximal end of the tendon the distal end of the tendon could not be located there was an 8 cm gap. The proximal incision was extended more proximally. Approximately half of the tendon was incised and rotated down to cover the gap. It was sutured into place on a small tag of retinaculum at the base of the first metatarsal. The tendon was tubularized and repaired with simple 3-0 Vicryl suture. The foot was then normal neutral position the tendon was tensioned appropriately with the suture. The wound was flushed with copious amounts of normal saline. The tendon sheath was repaired. Skin was closed with nylon. A dry sterile dressing was applied. Tourniquet was deflated and full vascular flow was restored to the foot and digits. Posterior splint was applied along with a dry sterile dressing. Patient left the operating room with vital signs stable. Type of Anesthesia:: MAC/Supplemental/Local
== END 2020-09-26 15:17 | disposition home or self-care (01) ==
LOC: SDC 09:27 → AC 09:28
PROVIDERS: PCP Family Medicine; Referring Provider Podiatrist Foot & Ankle Surgery; Visit Provider Podiatrist Foot & Ankle Surgery
PROC: (CPT 27658; principal; 2020-09-26 10:50)
DX: M20.41 Other hammer toe(s) (acquired), right foot (principal); L97.519 Non-pressure chronic ulcer of other part of right foot with unspecified severity; M66.861 Spontaneous rupture of other tendons, right lower leg; M19.90 Unspecified osteoarthritis, unspecified site; J45.909 Unspecified asthma, uncomplicated; E11.9 Type 2 diabetes mellitus without complications; E78.00 Pure hypercholesterolemia, unspecified; G47.30 Sleep apnea, unspecified; I11.9 Hypertensive heart disease without heart failure; L40.52 Psoriatic arthritis mutilans; K21.9 Gastro-esophageal reflux disease without esophagitis; Z87.891 Personal history of nicotine dependence; Z79.84 Long term (current) use of oral hypoglycemic drugs; Z79.899 Other long term (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
CPT/HCPCS: 01480; 27658; 28124; 28285; 82962; 87426; C9803; J7120; J2405

== ENCOUNTER → 2020-10-10 10:25 | Outpatient (CLI) | payer MEDICARE, OTHER, SELFPAY ==
[2020-08-07 09:10] VITALS: BMI 25.6
[2020-09-26 11:04] VITALS: BMI 31.5
[2020-10-10] MEDS: 0.9% NaCl IVPB Med Flush (250 mL) 15 ML IV (11:06)
[2020-10-10 11:10] VITALS: BP 150/69; PULSE 74; RESP 16; TEMP 36.1; O2SAT 91; BMI 32.1
[2020-10-10] MEDS: 0.9% NaCl Peripheral Flush Adult/Peds IV (11:11)
[2020-10-10] MEDS: DiphenhydrAMINE 50 MG/ML Syringe 12.5 MG IV (11:11)
== END ==
PROVIDERS: PCP Family Medicine; Referring Provider Family Medicine; Visit Provider Family Medicine
DX: M50.90 Cervical disc disorder, unspecified, unspecified cervical region (principal); L40.52 Psoriatic arthritis mutilans; Z79.899 Other long term (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
CPT/HCPCS: 96375; 96413; 96415; J7050; A4216; Q5103

== ENCOUNTER → 2020-12-05 10:30 | Outpatient (CLI) | payer MEDICARE, OTHER, SELFPAY ==
[2020-09-26 11:04] VITALS: BMI 31.5
[2020-12-01 11:01] VITALS: BMI 32.5
[2020-12-05 10:49] VITALS: BP 151/97; PULSE 62; RESP 16; TEMP 35.8; O2SAT 99; BMI 32.2
[2020-12-05] MEDS: DiphenhydrAMINE 50 MG/ML Syringe 12.5 MG IV (10:55)
[2020-12-05] MEDS: 0.9% NaCl IVPB Med Flush (250 mL) 15 ML IV (10:56)
[2020-12-05 14:00] VITALS: BP 154/68; PULSE 65; RESP 18; TEMP 36; O2SAT 100
[2020-12-05 16:07] LABS: PSA,Total- Diagnostic 0.88 ng/mL (0.0-4.0)
== END ==
PROVIDERS: PCP Family Medicine; Referring Provider Family Medicine; Visit Provider Family Medicine
DX: C61 Malignant neoplasm of prostate (principal); M50.90 Cervical disc disorder, unspecified, unspecified cervical region; L40.52 Psoriatic arthritis mutilans; L40.9 Psoriasis, unspecified; Z79.899 Other long term (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
CPT/HCPCS: 36415; 84153; 96413; 96415; J7050; Q5103

== ENCOUNTER 2020-12-09 13:46 | Outpatient (RCR) | payer MEDICARE, OTHER, SELFPAY ==
[2020-12-05 10:49] VITALS: BMI 32.2
[2020-12-09 15:13] LABS: Absolute Lymphocyte Count 1.83 X10^3/uL (0.83-4.51); Absolute Neutrophil Count 4.5 X10^3/uL (2.0-7.7); Basophil# 0.04 X10^3/uL; Basophil% 0.5 % (0-1); Eosinophil# 0.43 X10^3/uL; Eosinophils% 5.7 % (0-5); Erythrocyte Sedimentation Rate 3 mm/hr (0-20); Hematocrit 44.4 % (40-54); Hemoglobin 14.7 g/dL (13.0-16.5); Lymphocyte # 1.83 X10^3/ul (4.0); Lymphocyte % 24.1 % (19-41); Mean Corp Hgb Conc 33.1 g/dL (32-36); Mean Corpuscular Hgb 30.9 pg (27.0-32.0); Mean Corpuscular Volume 93.5 fL (80-94); Mean Platelet Vol. 11.3 fl (6.2-12.0); Monocyte# 0.74 X10^3/uL; Monocyte% 9.8 % (0-10); NRBC Flagged by Analyzer 0 % (0-5); Neutrophil # 4.51 X10^3/uL (2.7-7.7); Neutrophil % 59.5 % (47-70); Platelet Count 292 K/mm3 (150-450); RBC Distribution Width CV 13.2 % (11.6-14.6); RBC Distribution Width SD 44.9 fl (35.1-43.9); Red Blood Count 4.75 M/mm3 (4.6-6.2); White Blood Count 7.6 K/mm3 (4.4-11.0)
[2020-12-09 15:41] LABS: AST(SGOT) 36 U/L (15-37); Alanine Aminotransfer ALT/SGPT 52 U/L (16-61); CRP < 2.90 mg/L (0.0-3.0); Creatinine, Serum 1.29 mg/dL (0.70-1.30); EST Glomerular Filtration Rate 57 mL/min (>60); Est Glom Filt Rate - Afr Amer 69 mL/min (>60)
== END 2020-12-09 18:00 | disposition home or self-care (01) ==
LOC: LAB 13:46
PROVIDERS: PCP Family Medicine; Referring Provider Internal Medicine Rheumatology; Visit Provider Internal Medicine Rheumatology
DX: L40.52 Psoriatic arthritis mutilans (principal); L30.9 Dermatitis, unspecified; Z85.828 Personal history of other malignant neoplasm of skin; Z79.899 Other long term (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; Z79.1 Long term (current) use of non-steroidal anti-inflammatories (NSAID); M17.0 Bilateral primary osteoarthritis of knee; M50.90 Cervical disc disorder, unspecified, unspecified cervical region; L40.3 Pustulosis palmaris et plantaris
CPT/HCPCS: 36415; 82565; 84450; 84460; 85025; 85652; 86140

== ENCOUNTER → 2021-01-30 10:33 | Outpatient (CLI) | payer MEDICARE, OTHER, SELFPAY ==
[2020-12-01 11:01] VITALS: BMI 32.5
[2020-12-05 10:49] VITALS: BMI 32.2
[2021-01-30 10:41] VITALS: BP 143/60; PULSE 63; RESP 18; TEMP 35.9; BMI 31.7
[2021-01-30] MEDS: 0.9% NaCl PICC Flush IV (11:01)
[2021-01-30] MEDS: DiphenhydrAMINE 50 MG/ML Syringe 12.5 MG IV (11:05)
== END ==
PROVIDERS: PCP Family Medicine; Referring Provider Family Medicine; Visit Provider Family Medicine
DX: M50.90 Cervical disc disorder, unspecified, unspecified cervical region (principal); L40.52 Psoriatic arthritis mutilans; L40.9 Psoriasis, unspecified; Z79.899 Other long term (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
CPT/HCPCS: 96413; 96415; J7050; A4216; Q5103

== ENCOUNTER → 2021-02-12 10:48 | Outpatient (CLI) | payer MEDICARE, OTHER, SELFPAY ==
[2020-12-05 10:49] VITALS: BMI 32.2
[2021-01-30 10:41] VITALS: BMI 31.7
[2021-02-12 12:48] LABS: Erythrocyte Sedimentation Rate 6 mm/hr (0-20)
[2021-02-12 12:50] LABS: Absolute Lymphocyte Count 1.65 X10^3/uL (0.83-4.51); Absolute Neutrophil Count 6.5 X10^3/uL (2.0-7.7); Basophil# 0.04 X10^3/uL; Basophil% 0.4 % (0-1); Eosinophil# 0.45 X10^3/uL; Eosinophils% 4.7 % (0-5); Hematocrit 45.1 % (40-54); Hemoglobin 14.7 g/dL (13.0-16.5); Lymphocyte # 1.65 X10^3/ul (4.0); Lymphocyte % 17.2 % (19-41); Mean Corp Hgb Conc 32.6 g/dL (32-36); Mean Corpuscular Hgb 30.8 pg (27.0-32.0); Mean Corpuscular Volume 94.5 fL (80-94); Mean Platelet Vol. 10.7 fl (6.2-12.0); Monocyte# 0.87 X10^3/uL; Monocyte% 9.1 % (0-10); NRBC Flagged by Analyzer 0 % (0-5); Neutrophil # 6.54 X10^3/uL (2.7-7.7); Neutrophil % 68.2 % (47-70); Platelet Count 302 K/mm3 (150-450); RBC Distribution Width CV 13.6 % (11.6-14.6); RBC Distribution Width SD 47.1 fl (35.1-43.9); Red Blood Count 4.77 M/mm3 (4.6-6.2); White Blood Count 9.6 K/mm3 (4.4-11.0)
[2021-02-12 13:17] LABS: AST(SGOT) 34 U/L (15-37); Alanine Aminotransfer ALT/SGPT 50 U/L (16-61); CRP < 2.90 mg/L (0.0-3.0); Creatinine, Serum 1.29 mg/dL (0.70-1.30); EST Glomerular Filtration Rate 57 mL/min (>60); Est Glom Filt Rate - Afr Amer 69 mL/min (>60)
--- NOTE | 2021-02-12 14:51 | PFTCOMP ---
COMPLETE PULMONARY FUNCTION TEST INTERPRETATION Brief HPI: Patient is a 75 year old male, currently under the care of Dr. Turner, who presents to [facility] for complete pulmonary function tests secondary to diagnosis of pulmonary hypertension. Respiratory therapist reports good effort and reproducible results. Interpretation: Forced expiration spirometry shows a mild large airways obstructive ventilatory defect with an FEV1 of 118% predicted. There is a significant bronchodilator response in FVC and FEV1 by strict ATS criteria. Spirograms are of good quality and plateau slowly, indicating slowly emptying areas of the lungs. The respiratory flow volume loop shows decreased expiratory flow rates at high lung volumes consistent with small airways obstruction. Lung volumes by body plethysmography show a normal total lung capacity at 7.16 L, 104% predicted. All other lung volumes are within normal limits. Diffusion capacity by carbon monoxide is normal at 80% predicted. The airway resistance is normal. Compared to previous pulmonary function tests from 01/10/2017, there has been no significant change. Impression: Fully reversible mild large airways obstructive ventilatory defect with no significant change compared to previous
== END ==
PROVIDERS: PCP Family Medicine; Referring Provider Family Medicine; Visit Provider Family Medicine
DX: G47.33 Obstructive sleep apnea (adult) (pediatric) (principal); L40.52 Psoriatic arthritis mutilans; L40.50 Arthropathic psoriasis, unspecified; L40.9 Psoriasis, unspecified; L30.9 Dermatitis, unspecified; Z79.1 Long term (current) use of non-steroidal anti-inflammatories (NSAID); M17.0 Bilateral primary osteoarthritis of knee; M50.90 Cervical disc disorder, unspecified, unspecified cervical region; L40.3 Pustulosis palmaris et plantaris; Z85.828 Personal history of other malignant neoplasm of skin; Z79.899 Other long term (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
CPT/HCPCS: 36415; 82565; 84450; 84460; 85025; 85652; 86140; 94060; 94726; 94729

== ENCOUNTER → 2021-02-26 11:10 | Outpatient (CLI) | payer MEDICARE, OTHER, SELFPAY ==
[2021-02-25 09:12] VITALS: BMI 31.8
[2021-02-26 11:31] LABS: Absolute Lymphocyte Count 1.58 X10^3/uL (0.83-4.51); Absolute Neutrophil Count 2.8 X10^3/uL (2.0-7.7); Basophil# 0.03 X10^3/uL; Basophil% 0.5 % (0-1); Eosinophil# 0.46 X10^3/uL; Eosinophils% 8.2 % (0-5); Hematocrit 42.8 % (40-54); Hemoglobin 13.7 g/dL (13.0-16.5); Lymphocyte # 1.58 X10^3/ul (0.83-4.51); Mean Corpuscular Hgb 30.8 pg (27.0-32.0); Mean Corpuscular Volume 96.2 fL (80-94); Mean Platelet Vol. 10.7 fl (6.2-12.0); Monocyte# 0.71 X10^3/uL; Monocyte% 12.6 % (0-10); NRBC Flagged by Analyzer 0 % (0-5); Neutrophil # 2.84 X10^3/uL (2.7-7.7); Neutrophil % 50.3 % (47-70); Platelet Count 242 K/mm3 (150-450); RBC Distribution Width CV 13.8 % (11.6-14.6); RBC Distribution Width SD 48.2 fl (35.1-43.9); Red Blood Count 4.45 M/mm3 (4.6-6.2); White Blood Count 5.6 K/mm3 (4.4-11.0)
--- NOTE | 2021-02-26 11:34 | EKG12_ITS ---
Test Reason : HTN,WOUND CTR Blood Pressure : / mmHG Vent. Rate : 059 BPM Atrial Rate : 059 BPM P-R Int : 176 ms QRS Dur : 094 ms QT Int : 408 ms P-R-T Axes : 063 054 052 degrees QTc Int : 403 ms Sinus bradycardia with marked sinus arrhythmia Otherwise normal ECG Confirmed by HOA BENITEZ, MIKE ([id number]), newspaper photo editor CARMEN MATUTE ([id number]) on 02/27/2021 11:53:54 AM Referred By: Martha Alva Confirmed By:MIKE CAMARA MD
--- NOTE | 2021-02-26 11:44 | RAD_ITS ---
STUDY: X-RAY CHEST REASON FOR EXAM: Male, 75 years old. HYPERBARIC OXYGEN THERAPY TECHNIQUE: PA and lateral views of the chest. COMPARISON: 10/31/2015. FINDINGS: Cardiac silhouette unremarkable. Pulmonary vascularity unremarkable. Aorta unremarkable. Minimal bibasilar densities may represent atelectasis. No focal consolidation. No pleural effusions. Upper abdomen unremarkable. Osseous structures intact. No pneumothorax. RAD/Chest PA and Lateral IMPRESSION: No acute cardiopulmonary process identified. Electronically Signed: Niranjan Cook MD at 12:23 EDT Tel , Service support ,
[2021-02-26 12:12] LABS: ALB/GLOB Ratio 0.9 RATIO (0.9-2.4); AST(SGOT) 31 U/L (15-37); Alanine Aminotransfer ALT/SGPT 42 U/L (16-61); Albumin, Serum 3.7 g/dL (3.2-5.0); Alkaline Phosphatase 74 U/L (45-117); Anion Gap 2 (5-15); BUN 26 mg/dL (7-18); BUN/Creat Ratio 19.1 RATIO (10-20); CRP 6.71 mg/L (0.0-3.0); Calcium,Total 9.8 mg/dL (8.5-10.1); Chloride 107 mmol/L (98-107); Creatinine, Serum 1.36 mg/dL (0.70-1.30); EST Glomerular Filtration Rate 54 mL/min (>60); Est Glom Filt Rate - Afr Amer 65 mL/min (>60); Globulin 4.1 g/dL (2.2-4.2); Glucose 81 mg/dL (74-106); Potassium 4.5 mmol/L (3.5-5.1); Prealbumin 22.8 mg/dL (20.0-40.0); Protein, Total 7.8 g/dL (6.4-8.2); Sodium Level 138 mmol/L (136-145)
[2021-02-26 13:08] LABS: Hemoglobin A1c 6.7 % (3.8-5.6)
== END ==
PROVIDERS: PCP Family Medicine; Referring Provider Nurse Practitioner; Visit Provider Nurse Practitioner
DX: I10 Essential (primary) hypertension (principal); E11.69 Type 2 diabetes mellitus with other specified complication; M86.9 Osteomyelitis, unspecified; E11.621 Type 2 diabetes mellitus with foot ulcer; L97.529 Non-pressure chronic ulcer of other part of left foot with unspecified severity
CPT/HCPCS: 36415; 71046; 80053; 83036; 84134; 85025; 86140; 93005

== ENCOUNTER → 2021-03-05 16:55 | Outpatient (CLI) | payer MEDICARE, OTHER, SELFPAY ==
[2021-02-25 09:12] VITALS: BMI 31.8
[2021-03-04 08:09] VITALS: BMI 31.8
--- NOTE | 2021-03-05 17:30 | MRI_ITS ---
ACR Level 3 findings have been noted. An addendum which confirms receipt of the report will follow. STUDY: MRI LEFT FOREFOOT WITHOUT CONTRAST REASON FOR EXAM: Pain in ball of the foot, diabetic foot ulcer great toe, evaluate for osteomyelitis of the great toe. TECHNIQUE: Standardized fat and water weighted pulse sequences were obtained in all 3 orthogonal planes. COMPARISON: Radiographs 08/08/2020. FINDINGS: There is arthrosis of the metatarsophalangeal joint of the hallux with mild subchondral cystic change of the first metatarsal head and chondral thinning (T2 series 8 images 14-16). There is slight bone edema of the tibial and fibular sesamoids (inversion recovery series 5 image 15). There is deformity of the interphalangeal joint of the hallux (T1 sagittal images 26, 27), likely a sequelae of septic arthritis. There is bone edema of the plantar aspect of the first proximal phalanx (inversion recovery sagittal images 27, 28). Normal medial and lateral heads of the flexor hallucis brevis tendons. Normal flexor and extensor hallucis longus tendons. Normal second through fifth metatarsophalangeal (MTP) joints. There is amputation of the third digit at the level of the base of the middle phalanx and amputation of the fourth toe at the level of the distal interphalangeal joint. There is hammertoe deformity of the second digit. Normal first through fourth intermetatarsal spaces. There is a small volume of fluid in the flexor tendon sheaths of the second and third digits at the level of the distal metatarsals (inversion recovery series 5 images 12, 13). There is bone edema of the neck and distal diaphysis of the first metatarsal (inversion recovery sagittal images 23, 24). There is arthrosis of the second and third tarsometatarsal articulations with mild subchondral bone edema (inversion recovery sagittal images 10-14). There is arthrosis of the navicular-cuneiform articulations with mild subchondral bone edema (inversion recovery sagittal images 17-20). There is atrophy with fat replacement of the intrinsic muscles of the forefoot (T1 sagittal images 9-24). There is edema in the subcutis adipose space without focal fluid collection to indicate soft tissue abscess. MRI/Lower Ext/No Jt/w/o IMPRESSION: Bone edema of the distal first metatarsal and first proximal phalangeal base, potentially representing osteomyelitis. Deformity of the interphalangeal joint of the first digit, likely a sequelae of septic arthritis. Arthrosis of the first metatarsophalangeal joint. Slight bone edema of the tibial and fibular sesamoids. Arthrosis of the second and third tarsometatarsal articulations and navicular-cuneiform articulations. Mild flexor tenosynovitis of the second and third digits. Atrophy of the intrinsic muscles of the forefoot suggestive of peripheral neuropathy. No demonstrated soft tissue abscess. Electronically Signed: Prateek Fu MD at 8:40 EDT Tel , Service support ,
== END ==
PROVIDERS: PCP Family Medicine; Visit Provider Nurse Practitioner
DX: M86.9 Osteomyelitis, unspecified (principal)
CPT/HCPCS: 73718

== ENCOUNTER 2021-03-13 10:00 | Outpatient (RCR) | payer MEDICARE, OTHER, SELFPAY ==
[2021-01-30 10:41] VITALS: BMI 31.7
[2021-02-25 09:12] VITALS: BP 165/78; PULSE 64; RESP 16; TEMP 36.6; BMI 31.8
--- NOTE | 2021-02-25 10:40 | PCM.WC.HP ---
(1) Osteomyelitis of great toe of left foot Status: Acute Code(s): M86.9 - Osteomyelitis, unspecified (2) Diabetic foot ulcer associated with type 2 diabetes mellitus Status: Chronic Code(s): E11.621 - Type 2 diabetes mellitus with foot ulcer; L97.509 - Non-pressure chronic ulcer of other part of unspecified foot with unspecified severity (3) Essential hypertension Status: Chronic Code(s): I10 - Essential (primary) hypertension (4) 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 Status: Acute Code(s): E08.621 - Diabetes mellitus due to underlying condition with foot ulcer; L97.509 - Non-pressure chronic ulcer of other part of unspecified foot with unspecified severity History of Present Illness Date of Service: 02/25/21 Chief Complaint: Non healing Left Great toe plantar wound and left third toe plantar wound History of Wound: Mr Hatch Was referred here by 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 Surgery was on 25 March and per patient was uneventful however has had delayed healing of his surgical wound. He has been on a 3-week course of doxycycline History of diabetes mellitus and per patient his last A1c was 7.6. He reports compliance with his medication. Denies chills, fever or otherwise feeling of unwell at this time. X-ray back in July 2020 showed osteomyelitis of the left great toe since then he has developed open area on the plantar side of the third toe. He does have a Rubert colored foot and swelling. Patient complains of chronic pain in the posterior lower ankle area. Patient has been using Silvadene cream to the third great toe and to the base of the left great toe. Wounds appear clean no odor noted midfoot and toes are erythematous and swollen. Patient may be an HBO candidate and will be worked up as such with a CBC hemoglobin A1c prealbumin CMP will obtain a chest x-ray EKG repeat his arterial brachial studies and ultrasound last was done in 2014. Also will get an MRI of the left foot from previous x-ray done in July 2020 showing osteomyelitis in the left great toe. We we will apply for epi fix. Past Medical History Past Medical History: Chronic Problems (Last Reviewed 12/01/20 @ 11:28 by Winnie MILLER, PA) Diabetic foot ulcer associated with type 2 diabetes mellitus (Chronic) Non-healing surgical wound (Chronic) Left Great Toe ( Dorsum and Plantar ) Essential hypertension (Chronic) RAJESH (obstructive sleep apnea) (Chronic) Ectopic atrial tachycardia (Chronic) Paroxysmal ventricular tachycardia (Chronic) Premature atrial contractions (Chronic) Shortness of breath (Chronic) Hyperlipidemia (Chronic) Premature ventricular contraction (Chronic) Supraventricular tachycardia (Chronic) Long-term use of high-risk medication (Chronic) Body mass index 31.0-31.9, adult (Chronic) Diabetes mellitus (Chronic) 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) Chronic osteomyelitis involving ankle and foot (Chronic) Allergies/Adverse Reactions: Allergies cephalexin [From Keflex] Allergy (Severe, Verified 12/01/20 11:05) rash sulfamethoxazole [From Bactrim] Allergy (Severe, Verified 12/01/20 11:05) Rash trimethoprim [From Bactrim] Allergy (Severe, Verified 12/01/20 11:05) Rash Penicillins Adverse Reaction (Verified 12/01/20 11:05) Unknown Home Medications: Ambulatory Orders Medication Instructions Recorded Finasteride [Proscar] 5 mg PO DAILY 02/03/16 Tamsulosin HCl [Flomax] 0.4 mg PO QHS 02/03/16 metFORMIN HCl [Glucophage] 1,000 mg PO BIDCM 02/03/16 Bimatoprost [Lumigan] 1 drp EACH EYE DAILY 06/30/18 Fluticasone 0.05% [Flonase Nasal 2 spray NASAL DAILY PRN 06/30/18 [place]] 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 7.5 mg PO Q7D 06/30/18 Pyridoxine HCl [Vitamin B-6] 100 mg PO QHS 06/30/18 Multivitamins,Therapeutic 1 tab PO DAILY 10/20/18 [Multivitamin] Oxybutynin Chloride [Ditropan Xl] 5 mg PO QHS 10/20/18 Timolol 0.25% [Timoptic] 1 drp EACH EYE BID 10/20/18 fexofenadine 180 mg tablet 180 mg PO DAILY 06/01/19 folic acid 1 mg tablet 4 mg PO DAILY 06/01/19 glucosamine HCl 1,500 mg tablet 1,500 mg PO BID tab 02/20/20 vit C 250 mg-vit E 90 mg-zinc 40 1 cap PO DAILY 02/20/20 mg-copper 1 mn-boxkac-khorvs capsule hydrochlorothiazide 25 mg tablet 25 mg PO DAILY #90 tab 04/18/20 potassium chloride 20 mEq 20 meq PO DAILY #90 tab 05/20/20 tablet,extended release(part/cryst) lisinopril 40 mg tablet 40 mg PO DAILY #90 tab 05/23/20 glipizide 10 mg tablet 10 mg PO DAILY tab 05/30/20 infliximab-dyyb 100 mg intravenous mg IV [id number] ea 05/30/20 solution Metoprolol Succinate [Toprol Xl] 100 mg PO BID 09/24/20 Naproxen Sodium [Aleve] 220 mg PO PRN PRN 09/24/20 Pravastatin Sodium 40 mg PO QHS 09/24/20 cyanocobalamin (vitamin B-12) 100 500 mcg PO DAILY tab 12/01/20 mcg tablet ranitidine HCl 150 mg tablet mg PO 12/01/20 Lives: Spouse/ Significant Other Smoking Status: Former smoker Review of Systems Constitutional: Denies: Chills, Fever Eyes: Denies: Blurred vision, Drainage, Pain HEENT: Denies: Difficulty Hearing, Difficulty Swallowing, Sore Throat, Visual Changes Cardiovascular: Denies: Chest Pain, Palpitations, Syncope Respiratory: Denies: Cough, Shortness of Breath Gastrointestinal: Denies: Abdominal Pain, Nausea, Vomiting Genitourinary: Denies: Dysuria, Frequency Musculoskeletal: Denies: Joint Pain, Muscle pain Skin: Reports: - - Open wounds left third toe plantar side and base of left great toe. Denies: Jaundice, Rash Neurological: Denies: Balance problems, Change in Speech, Difficulty swallowing, Focal weakness Psychiatric: Denies: Anxiety, Depression Endocrine: Denies: Change in Body Habitus Hematologic/ Lymphatic: Denies: Adenopathy - Physical Exam Vital Signs Temp Pulse Resp BP 97.8 F 64 16 165/78 H 02/25/21 09:12 02/25/21 09:12 02/25/21 09:12 02/25/21 09:12 General: Oriented x3, Cooperative, Well developed HEENT: Atraumatic, PERRLA Oral: Moist Mucosa Neck: Supple, No JVD Lungs: Clear to auscultation, Normal air movement Cardiovascular: Regular rate, Regular Rhythm Abdomen: Bowel Sounds Present, Soft, Non Tender, No Hepato-splenomegaly Extremities: No clubbing, No edema, - - Left third toe plantar side open wound x2 months Of left great toe open since last March had surgery Wound Measurements and Assessment WC - Nurse 1 - General Ulcer Measurement Start: 02/25/21 09:12 Freq: Status: Active Protocol: Activity Type Activity Date Activity User E-Sign Co-Sign Detail Recorded Client Recorded Date Recorded By Document 02/25/21 09:12 [facility] [id number] 02/25/21 09:21 [facility] 02/25/21 09:12 Wound Center Nurse 1 [Ulcer Assessment] #5- L PLANTAR FOOT 1ST MET -Combined with other wound No -Current Size (cm) - Length 0.3 -Current Size (cm) - Width 1.1 -Current Size (cm) - Depth 0.1 -Total Square Cm 0.33 -Date of Last Picture (Recall this 02/25/21 field) -Photo Taken Yes -Epithelialization None Present -Tunneling No -Undermining/Tunneling No -Circular Undermining No -Exudate Amt Small -Exudate Type Serosanguineous -Wound Margin Distinct, Outline Attached -Granulation Amt Large (67-100%) -Granulation Quality Red -Slough/Fibrin Yes -Necrosis Amt Small (1-33%) -Necrotic Tissue Type Adherent Slough -Texture (Angie-wound Skin Appearance) Assessed, Scarring -Moisture (Angie-wound Skin Appearance Assessed ) -Color (Angie-wound Skin Appearance) Assessed -Temperature (Angie-wound Skin No Abnormality Appearance) (Pt Warm) -Tenderness on Palpation (Angie-wound No Skin Appearance) -Ulcer Cleansing Rinsed/ Irrigated with Saline -Foul Odor after Cleansing No -Anesthetic Used 4% Lidocaine Solution #4- L PLANTAR 3RD TOE -Combined with other wound No -Current Size (cm) - Length 1.6 -Current Size (cm) - Width 1.5 -Current Size (cm) - Depth 0.2 -Total Square Cm 2.40 -Date of Last Picture (Recall this 02/25/21 field) -Photo Taken Yes -Epithelialization None Present -Tunneling No -Undermining/Tunneling No -Circular Undermining No -Exudate Amt Small -Exudate Type Serosanguineous -Wound Margin Distinct, Outline Attached -Granulation Amt Large (67-100%) -Granulation Quality Red -Slough/Fibrin Yes -Necrosis Amt Small (1-33%) -Necrotic Tissue Type Adherent Slough -Texture (Angie-wound Skin Appearance) Assessed, Scarring -Moisture (Angie-wound Skin Appearance Assessed,Dry/ ) Scaly -Color (Angie-wound Skin Appearance) Assessed, Erythema -Temperature (Angie-wound Skin No Abnormality Appearance) (Pt Warm) -Tenderness on Palpation (Angie-wound No Skin Appearance) -Ulcer Cleansing Rinsed/ Irrigated with Saline -Foul Odor after Cleansing No -Anesthetic Used 4% Lidocaine Solution [Edema Assessment] -Lower Limb Edema Present Yes -Right Calf (cm) 42.3 -Right Ankle (cm) 27.5 -Left Calf (cm) 42.4 -Left Ankle (cm) 28.1 WC - Nurse 2 - General Ulcer CM Notes Start: 02/25/21 09:12 Freq: Status: Active Protocol: Activity Type Activity Date Activity User E-Sign Co-Sign Detail Recorded Client Recorded Date Recorded By Document 02/25/21 09:34 MW [id number] 02/25/21 09:46 MW 02/25/21 09:34 Wound Center Nurse 2 [Procedure/Treatment] #5- L PLANTAR FOOT 1ST MET -Time 09:34 -Correct Patient Yes -Correct Side, Site, Position Yes -Correct Procedure Yes -Procedure Performed Yes -Type of Procedure Debridement -Clinical Debridement Subcutaneous -Tissue Removed Subcutaneous -Post Debridement (cm) - Length 0.2 -Post Debridement (cm) - Width 1.5 -Post Debridement (cm) - Depth 0.1 -Total Square (Post) (cm) 0.30 -Area of Debridement (cm) - Length 0.2 -Area of Debridement (cm) - Width 1.5 -Total Square (Area) (cm) 0.30 -Tunneling No -Undermining/Tunneling No -Circular Undermining No -Wound/Ulcer Outcome Not Healed -Ulcer Cleansing Rinsed/ Irrigated with Saline -Foul Odor after Cleansing No -Bioengineered Tissue No -Bleeding Controlled with Pressure -Offloading No -Treatment Response Procedure Tolerated Well -Debridement - Subq, 1st 20sq cm Yes #4- L PLANTAR 3RD TOE -Time 09:34 -Correct Patient Yes -Correct Side, Site, Position Yes -Correct Procedure Yes -Procedure Performed Yes -Type of Procedure Debridement -Clinical Debridement Subcutaneous -Tissue Removed Subcutaneous -Post Debridement (cm) - Length 1.5 -Post Debridement (cm) - Width 1.5 -Post Debridement (cm) - Depth 0.2 -Total Square (Post) (cm) 2.25 -Area of Debridement (cm) - Length 1.5 -Area of Debridement (cm) - Width 1.5 -Total Square (Area) (cm) 2.25 -Tunneling No -Undermining/Tunneling No -Circular Undermining No -Wound/Ulcer Outcome Not Healed -Ulcer Cleansing Rinsed/ Irrigated with Saline -Foul Odor after Cleansing No -Bioengineered Tissue No -Bleeding Controlled with Pressure -Offloading No -Treatment Response Procedure Tolerated Well -Debridement - Subq, 1st 20sq cm No [See Physician Procedure note for Specifics] Pain Scale: 0-10 Numeric [Pain] -Is Patient Pain Free? Yes - Nurse 3 - General Ulcer D/C NN Start: 02/25/21 09:12 Freq: Status: Active Protocol: Activity Type Activity Date Activity User E-Sign Co-Sign Detail Recorded Client Recorded Date Recorded By Document 02/25/21 10:05 KR [id number] 02/25/21 10:06 NEEMA 02/25/21 10:05 Wound Care Nurse 3 [Wound Dressing] #5- L PLANTAR FOOT 1ST MET -Ulcer Cleansing Rinsed/ Irrigated with Saline -Primary Dressing Applied Aquacel AG 4x4, NonAdherent Contact Layer -Primary Dressing Covered/Secured Dry Gauze, with Secured with Tape -Aquacel AG 4x4 1 #4- L PLANTAR 3RD TOE -Primary Dressing Applied NonAdherent Contact Layer -Primary Dressing Covered/Secured Dry Gauze, with Secured with Tape Pain Scale: 0-10 Numeric [Pain] -Is Patient Pain Free? Yes - Visit Discharge [Visit Discharge Information] -Discharge Condition Stable -Ambulatory Status Ambulatory -Transportation Private Auto -Accompanied by Musculoskeletal: No Tenderness to Palpation of Joints or Extremities Lymphatic: No Cervical, Supraclavicular, or Inguinal Adenopathy Neurological: Cranial nerves II-XII grossly intact, Neuro grossly intact Psych/Mental Status: Normal Affect, Appropriate Debridement Note Post-Debridement Measurements/Treatment WC - Nurse 2 - General Ulcer CM Notes Start: 02/25/21 09:12 Freq: Status: Active Protocol: Activity Type Activity Date Activity User E-Sign Co-Sign Detail Recorded Client Recorded Date Recorded By Document 02/25/21 09:34 MW [id number] 02/25/21 09:46 MW 02/25/21 09:34 Wound Center Nurse 2 #5- L PLANTAR FOOT 1ST MET -Time 09:34 -Correct Patient Yes -Correct Side, Site, Position Yes -Correct Procedure Yes -Procedure Performed Yes -Type of Procedure Debridement -Clinical Debridement Subcutaneous -Tissue Removed Subcutaneous -Post Debridement (cm) - Length 0.2 -Post Debridement (cm) - Width 1.5 -Post Debridement (cm) - Depth 0.1 -Total Square (Post) (cm) 0.30 -Area of Debridement (cm) - Length 0.2 -Area of Debridement (cm) - Width 1.5 -Total Square (Area) (cm) 0.30 -Tunneling No -Undermining/Tunneling No -Circular Undermining No -Wound/Ulcer Outcome Not Healed -Ulcer Cleansing Rinsed/ Irrigated with Saline -Foul Odor after Cleansing No -Bioengineered Tissue No -Bleeding Controlled with Pressure -Offloading No -Treatment Response Procedure Tolerated Well -Debridement - Subq, 1st 20sq cm Yes #4- L PLANTAR 3RD TOE -Time 09:34 -Correct Patient Yes -Correct Side, Site, Position Yes -Correct Procedure Yes -Procedure Performed Yes -Type of Procedure Debridement -Clinical Debridement Subcutaneous -Tissue Removed Subcutaneous -Post Debridement (cm) - Length 1.5 -Post Debridement (cm) - Width 1.5 -Post Debridement (cm) - Depth 0.2 -Total Square (Post) (cm) 2.25 -Area of Debridement (cm) - Length 1.5 -Area of Debridement (cm) - Width 1.5 -Total Square (Area) (cm) 2.25 -Tunneling No -Undermining/Tunneling No -Circular Undermining No -Wound/Ulcer Outcome Not Healed -Ulcer Cleansing Rinsed/ Irrigated with Saline -Foul Odor after Cleansing No -Bioengineered Tissue No -Bleeding Controlled with Pressure -Offloading No -Treatment Response Procedure Tolerated Well -Debridement - Subq, 1st 20sq cm No Pain Scale: 0-10 Numeric Is Patient Pain Free? Yes WC - Nurse 3 - General Ulcer D/C NN Start: 02/25/21 09:12 Freq: Status: Active Protocol: Activity Type Activity Date Activity User E-Sign Co-Sign Detail Recorded Client Recorded Date Recorded By Document 02/25/21 10:05 NEEMA [id number] 02/25/21 10:06 NEEMA 02/25/21 10:05 Wound Care Nurse 3 #5- L PLANTAR FOOT 1ST MET -Ulcer Cleansing Rinsed/ Irrigated with Saline -Primary Dressing Applied Aquacel AG 4x4, NonAdherent Contact Layer -Primary Dressing Covered/Secured with Dry Gauze, Secured with Tape -Aquacel AG 4x4 1 #4- L PLANTAR 3RD TOE -Primary Dressing Applied NonAdherent Contact Layer -Primary Dressing Covered/Secured with Dry Gauze, Secured with Tape Pain Scale: 0-10 Numeric Is Patient Pain Free? Yes WC - Visit Discharge Discharge Condition Stable Ambulatory Status Ambulatory Transportation Private Auto Accompanied by Wound debrided: Base of left great toe Type of Debridement: Excisional debridement Anesthesia Used: 5% Lidocaine Gel Depth: Down to and including healthy tissue, in the subcutaneous layer Percentage of wound debrided: 100 Instrument Used: 5mm curette Tissue Removed: Fibrin Severity: Limited To Skin Breakdown Amount of bleeding with debridement: Mild Bleeding Controlled with: Pressure, Compression and gauze Patient tolerated procedure well - Additional Wound Wound debrided: Left third toe plantar Type of Debridement: Excisional debridement Anesthesia Used: 5% Lidocaine Gel Depth: Down to and including healthy tissue, in the subcutaneous layer Percentage of wound debrided: 100 Instrument Used: 5mm curette Tissue Removed: Fibrin and devitalized tissue callus Severity: Limited To Skin Breakdown Amount of bleeding with debridement: Mild Bleeding Controlled with: Compression and gauze Patient tolerated procedure: Patient tolerated procedure well Assessment/Plan Cultures aerobic anaerobic acquired from wound. Obtained CBC CMP hemoglobin A1c prealbumin chest x-ray EKG and schedule patient for an MRI of left foot toes Active Problems (Last Reviewed 12/01/20 @ 11:28 by Winnie MILLER, PA) Osteomyelitis of great toe of left foot (Acute) 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 (Acute) Diabetic foot ulcer associated with type 2 diabetes mellitus (Chronic) Essential hypertension (Chronic) Assessment: Left great toe open wound base. Osteomyelitis left great toe. Left third toe open wound nonhealing Plan: Aquacel extra to both wound areas moistened with Adaptic and gauze tape every day. We will call with cultures results patient is to go ahead and get chest x-ray EKG and labs drawn will call with results. Plying for epi fix also. Follow-up in 1 week
[2021-03-04 08:09] VITALS: BP 178/84; PULSE 78; TEMP 36.1; BMI 31.8
--- NOTE | 2021-03-04 09:23 | HBO.CON.PC_ITS ---
(1) Osteomyelitis of great toe of left foot Status: Acute Code(s): M86.9 - Osteomyelitis, unspecified (2) Diabetic foot ulcer associated with type 2 diabetes mellitus Status: Chronic Code(s): E11.621 - Type 2 diabetes mellitus with foot ulcer; L97.509 - Non-pressure chronic ulcer of other part of unspecified foot with unspecified severity (3) Essential hypertension Status: Chronic Code(s): I10 - Essential (primary) hypertension (4) 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 Status: Acute Code(s): E08.621 - Diabetes mellitus due to underlying condition with foot ulcer; L97.509 - Non-pressure chronic ulcer of other part of unspecified foot with unspecified severity History of Present Illness Date of Service: 03/04/21 Presenting Chief Complaint: Non healing Left Great toe plantar wound and left third toe plantar wound The patient is a 75 year old M who [facility] the possibility of initiating hyperbaric oxygen therapy for treatment of osteomylitis of the L great toe and DFU of the L 3rd toe and base of the L great toe. Patient was approved for epi fix epi fix #1 applied to plantar left third toe and base of left great toe [] Patient will be ordered hyperbaric oxygen protocol at 2 tulio absolute CLAY for 90 minutes without air breaks 1 treatment per day delivered Tuesday through Tuesday unless otherwise specified 30 total number of treatments. Past Medical History Chronic Problems (Last Reviewed 12/01/20 @ 11:28 by Winnie MILLER, PA) Diabetic foot ulcer associated with type 2 diabetes mellitus (Chronic) Non-healing surgical wound (Chronic) Left Great Toe ( Dorsum and Plantar ) Essential hypertension (Chronic) RAJESH (obstructive sleep apnea) (Chronic) Ectopic atrial tachycardia (Chronic) Paroxysmal ventricular tachycardia (Chronic) Premature atrial contractions (Chronic) Shortness of breath (Chronic) Hyperlipidemia (Chronic) Premature ventricular contraction (Chronic) Supraventricular tachycardia (Chronic) Long-term use of high-risk medication (Chronic) Body mass index 31.0-31.9, adult (Chronic) Diabetes mellitus (Chronic) 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) Chronic osteomyelitis involving ankle and foot (Chronic) Allergies/Adverse Reactions: Allergies cephalexin [From Keflex] Allergy (Severe, Verified 12/01/20 11:05) rash sulfamethoxazole [From Bactrim] Allergy (Severe, Verified 12/01/20 11:05) Rash trimethoprim [From Bactrim] Allergy (Severe, Verified 12/01/20 11:05) Rash Penicillins Adverse Reaction (Verified 12/01/20 11:05) Unknown Home Medications: Ambulatory Orders Medication Instructions Recorded Finasteride [Proscar] 5 mg PO DAILY 02/03/16 Tamsulosin HCl [Flomax] 0.4 mg PO QHS 02/03/16 metFORMIN HCl [Glucophage] 1,000 mg PO BIDCM 02/03/16 Bimatoprost [Lumigan] 1 drp EACH EYE DAILY 06/30/18 Fluticasone 0.05% [Flonase Nasal 2 spray NASAL DAILY PRN 06/30/18 [place]] 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 7.5 mg PO Q7D 06/30/18 Pyridoxine HCl [Vitamin B-6] 100 mg PO QHS 06/30/18 Multivitamins,Therapeutic 1 tab PO DAILY 10/20/18 [Multivitamin] Oxybutynin Chloride [Ditropan Xl] 5 mg PO QHS 10/20/18 Timolol 0.25% [Timoptic] 1 drp EACH EYE BID 10/20/18 fexofenadine 180 mg tablet 180 mg PO DAILY 06/01/19 folic acid 1 mg tablet 4 mg PO DAILY 06/01/19 glucosamine HCl 1,500 mg tablet 1,500 mg PO BID tab 02/20/20 vit C 250 mg-vit E 90 mg-zinc 40 1 cap PO DAILY 02/20/20 mg-copper 1 hp-yogwdb-ngiujp capsule hydrochlorothiazide 25 mg tablet 25 mg PO DAILY #90 tab 04/18/20 potassium chloride 20 mEq 20 meq PO DAILY #90 tab 05/20/20 tablet,extended release(part/cryst) lisinopril 40 mg tablet 40 mg PO DAILY #90 tab 05/23/20 glipizide 10 mg tablet 10 mg PO DAILY tab 05/30/20 infliximab-dyyb 100 mg intravenous mg IV [id number] [id number] 05/30/20 solution Metoprolol Succinate [Toprol Xl] 100 mg PO BID 09/24/20 Naproxen Sodium [Aleve] 220 mg PO PRN PRN 09/24/20 Pravastatin Sodium 40 mg PO QHS 09/24/20 cyanocobalamin (vitamin B-12) 100 500 mcg PO DAILY tab 12/01/20 mcg tablet ranitidine HCl 150 mg tablet mg PO 12/01/20 Lives: Spouse/ Significant Other Smoking Status: Former smoker Tobacco Use: Non-smoker Alcohol: None Drugs: None Review of Systems Constitutional: Denies: Chills, Fever Eyes: Denies: Blurred vision, Drainage, Pain HEENT: Denies: Difficulty Hearing, Difficulty Swallowing, Sore Throat, Visual Changes Cardiovascular: Denies: Chest Pain, Palpitations, Syncope Respiratory: Denies: Cough, Shortness of Breath Gastrointestinal: Denies: Abdominal Pain, Nausea, Vomiting Genitourinary: Denies: Dysuria, Frequency Musculoskeletal: Denies: Joint Pain, Muscle pain Skin: Denies: Jaundice, Rash Neurological: Denies: Balance problems, Change in Speech, Difficulty swallowing, Focal weakness Psychiatric: Denies: Anxiety, Depression Endocrine: Denies: Change in Body Habitus Hematologic/ Lymphatic: Denies: Adenopathy - Physical Exam Vital Signs Temp Pulse Resp BP 96.9 F L 78 16 178/84 H 03/04/21 08:09 03/04/21 08:09 02/25/21 09:12 03/04/21 08:09 General: Oriented x3, Cooperative, Well developed HEENT: Atraumatic, PERRLA Oral: Moist Mucosa Neck: Supple, No JVD Lungs: Clear to auscultation, Normal air movement Cardiovascular: Regular rate, Regular Rhythm Abdomen: Bowel Sounds Present, Soft, Non Tender, No Hepato-splenomegaly Extremities: No clubbing, No edema, - - Open wound left great toe base plantar side and plantar third toe left foot been wound Wound Measurements and Assessment WC - Nurse 1 - General Ulcer Measurement Start: 02/25/21 09:12 Freq: Status: Active Protocol: Activity Type Activity Date Activity User E-Sign Co-Sign Detail Recorded Client Recorded Date Recorded By Document 03/04/21 08:09 NEEMA [id number] 03/04/21 08:20 NEEMA 03/04/21 08:09 Wound Center Nurse 1 [Ulcer Assessment] #5- L PLANTAR FOOT 1ST MET -Current Size (cm) - Length 0.2 -Current Size (cm) - Width 1.3 -Current Size (cm) - Depth 0.1 -Total Square Cm 0.26 -Exudate Amt Small -Exudate Type Serosanguineous -Wound Margin Distinct, Outline Attached -Granulation Amt Large (67-100%) -Granulation Quality Red -Necrosis Amt None Present (0 %) -Texture (Agnie-wound Skin Appearance) Assessed, Scarring -Moisture (Angie-wound Skin Appearance No Abnormality, ) Assessed -Color (Angie-wound Skin Appearance) No Abnormality, Assessed -Temperature (Angie-wound Skin No Abnormality Appearance) (Pt Warm) -Tenderness on Palpation (Angie-wound No Skin Appearance) -Ulcer Cleansing Rinsed/ Irrigated with Saline -Foul Odor after Cleansing No -Anesthetic Used 4% Lidocaine Solution #4- L PLANTAR 3RD TOE -Current Size (cm) - Length 1.6 -Current Size (cm) - Width 1.6 -Current Size (cm) - Depth 0.2 -Total Square Cm 2.56 -Exudate Amt Small -Exudate Type Serosanguineous -Wound Margin Distinct, Outline Attached -Granulation Amt Large (67-100%) -Granulation Quality Red -Necrosis Amt None Present (0 %) -Texture (Angie-wound Skin Appearance) Assessed, Scarring -Moisture (Angie-wound Skin Appearance No Abnormality, ) Assessed -Color (Angie-wound Skin Appearance) No Abnormality, Assessed -Temperature (Angie-wound Skin No Abnormality Appearance) (Pt Warm) -Tenderness on Palpation (Angie-wound No Skin Appearance) -Ulcer Cleansing Rinsed/ Irrigated with Saline -Foul Odor after Cleansing No -Anesthetic Used 4% Lidocaine Solution WC - Nurse 2 - General Ulcer CM Notes Start: 02/25/21 09:12 Freq: Status: Active Protocol: Activity Type Activity Date Activity User E-Sign Co-Sign Detail Recorded Client Recorded Date Recorded By Document 03/04/21 08:27 MW [id number] 03/04/21 08:39 MW 03/04/21 08:27 Wound Center Nurse 2 [Procedure/Treatment] #5- L PLANTAR FOOT 1ST MET -Time 08:27 -Correct Patient Yes -Correct Side, Site, Position Yes -Correct Procedure Yes -Procedure Performed Yes -Type of Procedure Debridement -Clinical Debridement Subcutaneous -Tissue Removed Subcutaneous -Post Debridement (cm) - Length 0.3 -Post Debridement (cm) - Width 1.5 -Post Debridement (cm) - Depth 0.1 -Total Square (Post) (cm) 0.45 -Area of Debridement (cm) - Length 0.3 -Area of Debridement (cm) - Width 1.5 -Total Square (Area) (cm) 0.45 -Tunneling No -Undermining/Tunneling No -Circular Undermining No -Wound/Ulcer Outcome Not Healed -Ulcer Cleansing Rinsed/ Irrigated with Saline -Foul Odor after Cleansing No -Bioengineered Tissue No -Bleeding Controlled with Pressure -Offloading No -Treatment Response Procedure Tolerated Well -Debridement - Subq, 1st 20sq cm Yes #4- L PLANTAR 3RD TOE -Time 08:28 -Correct Patient Yes -Correct Side, Site, Position Yes -Correct Procedure Yes -Procedure Performed Yes -Type of Procedure Debridement -Clinical Debridement Subcutaneous -Tissue Removed Subcutaneous -Post Debridement (cm) - Length 1.5 -Post Debridement (cm) - Width 1.5 -Post Debridement (cm) - Depth 0.2 -Total Square (Post) (cm) 2.25 -Area of Debridement (cm) - Length 1.5 -Area of Debridement (cm) - Width 1.5 -Total Square (Area) (cm) 2.25 -Tunneling No -Undermining/Tunneling No -Circular Undermining No -Wound/Ulcer Outcome Not Healed -Ulcer Cleansing Rinsed/ Irrigated with Saline -Foul Odor after Cleansing No -Bioengineered Tissue Yes -Type of Bioengineered Tissue Epifix 18mm Disc -Expiration Date 11/14/25 -Product Lot Number [id number] -Percent Used 100 -Lot number of Saline Used [id number] -Bleeding Controlled with Pressure -Offloading No -Treatment Response Procedure Tolerated Well -Debridement - Subq, 1st 20sq cm No -Apply Skin Sub - 1st 25 sq cm - Feet 1 -Epifix 18mm Disc 3 Query Text:18mm = 3 [See Physician Procedure note for Specifics] Pain Scale: 0-10 Numeric [Pain] -Is Patient Pain Free? Yes WC - Nurse 3 - General Ulcer D/C NN Start: 02/25/21 09:12 Freq: Status: Active Protocol: Activity Type Activity Date Activity User E-Sign Co-Sign Detail Recorded Client Recorded Date Recorded By Document 03/04/21 08:58 NEEMA [id number] 03/04/21 08:59 KR 03/04/21 08:58 Wound Care Nurse 3 [Wound Dressing] #5- L PLANTAR FOOT 1ST MET -Primary Dressing Covered/Secured Dry Gauze, with Secured with Tape #4- L PLANTAR 3RD TOE -Primary Dressing Covered/Secured Dry Gauze, with Secured with Tape Pain Scale: 0-10 Numeric [Pain] -Is Patient Pain Free? Yes WC - Visit Discharge [Visit Discharge Information] -Discharge Condition Stable -Ambulatory Status Ambulatory -Transportation Private Auto -Accompanied by Musculoskeletal: No Tenderness to Palpation of Joints or Extremities Lymphatic: No Cervical, Supraclavicular, or Inguinal Adenopathy Neurological: Cranial nerves II-XII grossly intact, Neuro grossly intact Psych/Mental Status: Normal Affect, Appropriate Assessment/Plan Active Problems (Last Reviewed 12/01/20 @ 11:28 by Winnie MILLER, PA) Osteomyelitis of great toe of left foot (Acute) 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 (Acute) Diabetic foot ulcer associated with type 2 diabetes mellitus (Chronic) Essential hypertension (Chronic) YESSI GRACE is an appropriate candidate for hyperbaric oxygen therapy. Hyperbaric Oxygen Therapy would be an essential adjunct in the resolution and treatment of this patient's presenting problem. This patient has sufficient physiologic and psychological stamina to undergo the rigors of hyperbaric oxygen therapy. As such, I recommend the following: Hyperbaric Oxygen Treatments at 2.0 CLAY in 100% Oxygen for 90 minutes per treatment, for 30 treatments. I have discussed the possible benefits of hyperbaric oxygen therapy with this patient. I have also presented and described the risks, including: air gas embolism, pneumothorax, central nervous system and pulmonary oxygen toxicity, flash pulmonary edema, hypoglycemia, reversible visual refractive changes, ear and sinus priscilla-trauma, and confinement anxiety. The patient has verbalized understanding of these risks, and is still wanting to undergo hyperbaric oxygen therapy. The patient understands the significant time and transportation commitment involved in daily treatments of up to two hours duration and has stated that they are willing to commit to this therapy. - HBOT Diagnosis Garcia III Diabetic Foot/Toe Ulcer (707.15/250.8) CBC prealbumin hemoglobin A1c chest x-ray MRI left foot x-ray left foot X-ray left foot great toe shows left plantar ulcer just underneath great big toe taped with gauze evidence of erosive changes in the level of the distal portion of the occipital phalanx of the great toe suggestion of osteomyelitis with skin swelling. CMP creatinine 1.36 slightly elevated GFR's are good at 65 greater than 60 C-reactive protein elevated showing inflammatory process of 6.71 greater than 3 a complete blood count shows no sign of anemia good platelet count cultures were positive and patient is currently on clindamycin for his infection his prealbumin was 22.8 which is within the normal limits patient's hemoglobin A1c was 7.2 which is well controlled
--- NOTE | 2021-03-09 06:58 | WC ---
[facility] call # for authorization for HBO treatment is #[phone] Call number was received on 03/06/21
--- NOTE | 2021-03-10 13:05 | ART_ITS ---
Reason For Study: PAD Procedure A bilateral lower extremity continuous wave Doppler with analog waveform analysis,segmental pressures,and ankle brachial indexes without exercise. Left Segmental Pressures Left brachial= 143mmHg. Left posterior tibial artery = 193mmHg. Left dorsalis pedis artery = 165mmHg. The left dorsalis pedis waveforms are triphasic. The left posterior tibial artery waveforms are triphasic. Right Segmental Pressures Right brachial= 134mmHg. Right posterior tibial artery = 190mmHg. Right dorsalis pedis artery = 144mmHg. The right dorsalis pedis waveforms are triphasic. The right posterior tibial artery waveforms are triphasic. Indices The right ankle brachial index by the dorsalis pedis is 1.01. The right ankle brachial index by the posterior tibial artery is 1.33. The left ankle brachial index by the dorsalis pedis is 1.15. The left ankle brachial index by the posterior tibial artery is 1.35. VL/Lower Ext Art Exam w/o Exercis Interpretation Summary Normal bilateral lower extremity resting ankle-brachial indices and triphasic b ilateral posterior tibial and dorsalis pedis Doppler waveforms Toe size prohibits the obtaining of digital brachial indices however volume pul se recordings are normal at the digital level Ordering Physician: Martha Alva Performed By: MARLO MACDONALD RVT
--- NOTE | 2021-03-10 13:05 | VDLE_ITS ---
Reason For Study: edema, L plantar toe ulcer RIGHT LEFT CFV is compressible, spontaneous, phasic, CFV is compressible, spontaneous, phasic, competent and demonstrates normal competent, and demonstrates normal augmentation. augmentation. FV is compressible, spontaneous, phasic, FV is compressible, spontaneous, phasic, competent and demonstrates normal competent and demonstrates normal augmentation. augmentation. POP V is compressible, spontaneous, phasic, POP V is compressible, spontaneous, phasic, competent and demonstrates normal competent and demonstrates normal augmentation. augmentation. T/P Trunk is compressible. T/P Trunk is compressible. PTV is compressible. PTV is compressible. RT PerV is compressible. LT PerV is compressible. Hypoechoic area behind the knee measuring .88 Hypoechoic area medial knee measuring 1.15 x x 2.84 cm. Area is nonvascular. 2.2 cm. Area is nonvascular. SFJ is competent and measures .63 cm. SFJ is competent and measures .59 cm. GSV proximal thigh measures .5 x .52 cm. GSV proximal thigh measures .48 x .47 cm. GSV at knee measures .29 x .31 cm. GSV at knee measures .37 x .39 cm. GSV INCOMPETENT throughout for greater than GSV above knee is competent. 0.5 seconds. GSV below knee is INCOMPETENT for greater SSV proximal calf is competent and than 0.5 seconds. measures .34 x .35 cm. SSV proximal calf is competent and ASV proximal thigh is INCOMPETENT for greater measures .19 x .19 cm. than 0.5 seconds and measures .38 x .42 cm. Procedure This is a venous duplex using B-mode, color flow and spectral Doppler. Exam performed in department. The exam was diagnostic. VL/Venous Duplex US - Neal Extrem Interpretation Summary No evidence for acute deep venous thrombosis bilateral lower extremities with p atent and compressible bilateral great saphenous veins. Right popliteal space 0.88 x 2.84 cm Gonzalez's cyst, nonvascular Left popliteal space 1.15 x 2.20 cm Gonzalez's cyst, nonvascular Right great saphenous vein is incompetent Right accessory saphenous vein to the proximal thigh incompetent Left great saphenous vein below the knee is incompetent Ordering Physician: Martha Alva Performed By: Jonathan Rausch RVT
[2021-03-11 08:59] VITALS: BP 169/83; PULSE 59; RESP 16; TEMP 36.8; BMI 31.8
--- NOTE | 2021-03-11 12:56 | PCM.PROGNOTE ---
Subjective Subjective: 75 year old white male her for follow up on his L great toe and L 3rd toe . He currently is a candidate for HBO for Osteomylitis found on as x-ray in Jul. Sugar had + cultures and has been on antibiotics for this . He has gotten his MRI done all his labs and chest x-ray, ekg done and is waiting for the results. Objective Data Objective Data MRI shows osteomyelitis in the bone of the L great toe base and into the first toe base Will refer to I&D for treatment. the patient has everything done and his ins has OK for HBO treatment and will start tomorrow The L great toe base is smaller and just a small slit and the L 3rd toe is open on the posterior side and will receive the 2 nd epifix to the area . Debrided around the edge for callus and hardened devitalized tissue with #7 curette. tolerated well. bleeding under controlled and no sign of infection in the surrounding tissue \ Vital Signs: Vital Signs Temp Pulse Resp BP 98.2 F 59 L 16 169/83 H 03/11/21 08:59 03/11/21 08:59 03/11/21 08:59 03/11/21 08:59 Oxygen Delivery Method Room Air Weight: 235 lb Body Mass Index (BMI) 31.8 Lab / Micro Data Micro: Microbiology 02/25/21 09:45 Wound Abcess - Toe Gram Stain - Final 02/25/21 09:45 Wound Abcess - Toe Wound Culture - Final Staphylococcus aureus Acinetobacter baumannii Actinomyces naeslundii 02/25/21 09:45 Wound Abcess - Toe Anaerobic Culture - Final No anaerobic bacteria isolated. Radiography Diagnostic Testing: Radiology Impression Extremity Arterial Study 03/10/21 13:05 Interpretation Summary Normal bilateral lower extremity resting ankle-brachial indices and triphasic bilateral posterior tibial and dorsalis pedis Doppler waveforms Toe size prohibits the obtaining of digital brachial indices however volume pulse recordings are normal at the digital level Ordering Physician: Martha Alva Performed By: MARLO MACDONALD RVT Venous Doppler Study 03/10/21 13:05 Interpretation Summary No evidence for acute deep venous thrombosis bilateral lower extremities with patent and compressible bilateral great saphenous veins. Right popliteal space 0.88 x 2.84 cm Gonzalez's cyst, nonvascular Left popliteal space 1.15 x 2.20 cm Gonzalez's cyst, nonvascular Right great saphenous vein is incompetent Right accessory saphenous vein to the proximal thigh incompetent Left great saphenous vein below the knee is incompetent Ordering Physician: Martha Alva Performed By: Marlo Macdonald, RVT Physical Exam Const alert and oriented x3 HEENT head/scalp atraumatic Eyes PERRL Neck supple and no JVD Lymph Lymphatic: no lymphadenopathy noted Resp normal respiratory effort Cardio regular rate and regular rhythm GI normal to inspection, nondistended, normoactive bowel sounds Extremity no clubbing, cyanosis or edema Skin General Skin Exam: turgor normal Rashes: no rashes Wounds: wounds noted size Size: L great toe0.2x0.5x0.1 L 3rd toe posterior regional loss prevention manager 1.4x1.6x0.2, bed beefy red, margins well approximated and well defined, no odor, open and No surrounding erythema Neuro CN's II-XII intact bilaterally Psych affect normal Assessment & Plan Assessment/Plan (1) Osteomyelitis of great toe of left foot: Status: Acute Code(s): M86.9 - Osteomyelitis, unspecified Plan: start HBO tomorrow (2) 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: Status: Acute Code(s): E08.621 - Diabetes mellitus due to underlying condition with foot ulcer; L97.509 - Non-pressure chronic ulcer of other part of unspecified foot with unspecified severity Qualifiers: Laterality: left Non-pressure ulcer stage: with fat layer exposed Qualified Code(s): E08.621 - Diabetes mellitus due to underlying condition with foot ulcer; L97.522 - Non-pressure chronic ulcer of other part of left foot with fat layer exposed Plan: epifix #2 applied with wound genteel veil and steri-strips gauze and tape to do the dressing and to only change the outer dressing follow up 1 week (3) Diabetic foot ulcer associated with type 2 diabetes mellitus: Status: Chronic Code(s): E11.621 - Type 2 diabetes mellitus with foot ulcer; L97.509 - Non-pressure chronic ulcer of other part of unspecified foot with unspecified severity Qualifiers: Diabetic foot ulcer location: toe Laterality: left Non-pressure ulcer stage: with bone involvement without evidence of necrosis Qualified Code(s): E11.621 - Type 2 diabetes mellitus with foot ulcer; L97.526 - 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 involvement without evidence of necrosis Plan: same as above (4) Non-healing surgical wound: Status: Chronic Code(s): T81.89XA - Other complications of procedures, not elsewhere classified, initial encounter Qualifiers: Encounter type: subsequent encounter Qualified Code(s): T81.89XD - Other complications of procedures, not elsewhere classified, subsequent encounter
[2021-03-12 11:12] VITALS: BP 149/71; BP 160/91; PULSE 105; PULSE 81; RESP 16; RESP 76; TEMP 36.4; TEMP 36.6
[2021-03-12 12:51] LABS: Bedside Glucose 122 mg/dL (70-110)
[2021-03-12 16:16] LABS: Bedside Glucose 124 mg/dL (70-110)
[2021-03-12 16:16] LABS: Bedside Glucose 143 mg/dL (70-110)
[2021-03-13 10:21] LABS: Bedside Glucose 103 mg/dL (70-110)
[2021-03-13 11:05] LABS: Bedside Glucose 109 mg/dL (70-110)
[2021-03-13 13:25] LABS: Bedside Glucose 111 mg/dL (70-110)
[2021-03-13 13:36] VITALS: BP 144/87; BP 164/74; PULSE 69; PULSE 77; RESP 16; RESP 18; TEMP 36.6; TEMP 36.7
[2021-03-13 13:51] LABS: Bedside Glucose 133 mg/dL (70-110)
[2021-03-13 13:51] LABS: Bedside Glucose 121 mg/dL (70-110)
--- NOTE | 2021-03-13 15:00 | HBO.PN.PCM_ITS ---
History of Present Illness Date of Service: 03/20/21 Chief Complaint: Non healing Left Great toe plantar wound and left third toe plantar wound History of Wound: Mr Hatch Was referred here by his senior data quality analyst due to nonhealing left great toe wound status post surgery. Surgery was on 25 March and per patient was uneventful however has had delayed healing of his surgical wound. He has been on a 3-week course of doxycycline History of diabetes mellitus and per patient his last A1c was 7.6. He reports compliance with his medication. Denies chills, fever or otherwise feeling of unwell at this time. X-ray back in July 2020 showed osteomyelitis of the left great toe since then he has developed open area on the plantar side of the third toe. Patient is undergoing treatment with advanced wound care as well as hyperbaric oxygen treatment to salvage his left foot. Subjective Subjective: Progress: Today is the 2nd treatment of hyperbaric oxygen therapy. The patient is scheduled for 30 treatments total. Tolerance of hyperbaric oxygen therapy: Hyperbaric oxygen treatment was provided as per the facility's protocol at 2.0 CLAY in 100% oxygen for 90 minutes without air breaks. Initially his blood sugar was low and he was given glucerna and it improved but was still not very high. He was given some cookies to increase his sugar and prevent hypoglycemia during his treatment. The patient tolerated hyperbaric oxygen well, without complications or complaints. Upon emergence of the hyperbaric chamber, the patient's vital signs remained stable. Objective Data Objective Data Vital Signs: Vital Signs Temp Pulse Resp BP 98.0 F 77 16 144/87 H 03/13/21 13:36 03/13/21 13:36 03/13/21 13:36 03/13/21 13:36 Oxygen Delivery Method Room Air Weight: 235 lb Body Mass Index (BMI) 31.8 Lab / Micro Data Labs: Laboratory Results - last 24 hr 03/12/21 03/12/21 03/13/21 09:54 10:08 10:12 POC Glucose 124 H 143 H 103 03/13/21 03/13/21 03/13/21 10:28 10:49 11:00 POC Glucose 109 121 H 133 H 03/13/21 13:21 POC Glucose 111 H Micro: Microbiology 02/25/21 09:45 Wound Abcess - Toe Gram Stain - Final 02/25/21 09:45 Wound Abcess - Toe Wound Culture - Final Staphylococcus aureus Acinetobacter baumannii Actinomyces naeslundii 02/25/21 09:45 Wound Abcess - Toe Anaerobic Culture - Final No anaerobic bacteria isolated. Exam Physical Exam Const alert, oriented x3 and no apparent distress General Appearance: cooperative HEENT normocephalic and head/scalp atraumatic External Auditory Canal: EAC's normal Tympanic Membrane: TM's normal bilaterally Psych mental status grossly normal and affect normal Appearance: grossly normal Speech: normal speech Nursing Assessment and Debridement Post-Debridement Measurements and Additional Note: Post-Debridement Measurements/Treatment - Nurse 1 - General Ulcer Assessment Start: 02/25/21 09:12 Freq: Status: Active Protocol: REMA Activity Type Activity Date Activity User E-Sign Co-Sign Detail Recorded Client Recorded Date Recorded By Document 03/11/21 08:59 [facility] [id number] 03/11/21 09:11 [facility] 03/11/21 08:59 WC - Today's Visit Information Type of service Follow-up Visit (Physician/MULTIMEDIA TEACHER ) Arrival Mode Ambulatory Transfer Assistance None Accompanied by Patient Identification Verified (Name & Yes ) Patient Requires Transmission-Based No Precautions Height and Weight Body Mass Index (BMI) 31.8 BMI Classification Obese Vital Signs Temperature (97.8 F-99.1 F) 98.2 F Temperature Source Temporal Pulse Rate (60-100) 59 L Pulse Location Monitor Respiratory Rate (12-18) 16 Respiratory rate source Observation Oxygen Delivery Method Room Air Blood Pressure (90/60-120/80) 169/83 H Blood Pressure Mean (mm Hg) 111 Source Monitor Position Sitting Blood Pressure Location Right Arm History Since Last Visit- (Skip if this is Patient's initial visit) Have you changed medications since your No last visit? Any new allergies or adverse reactions No Had a fall/change in ADL's that may No increase risk of falls Signs or symptoms of abuse and/or No neglect since last visit Have you been in the hospital since your No last visit? Has dressing in place as prescribed Yes Has compression in place as prescribed Yes Has offloadiing in place as prescribed N/A Experienced any changes in pain level or No management Left Footwear Regular Shoe Right Footwear Regular Shoe Pain Scale: 0-10 Numeric Is Patient Pain Free? Yes - Nurse 1 - General Ulcer Measurement Start: 02/25/21 09:12 Freq: Status: Active Protocol: Activity Type Activity Date Activity User E-Sign Co-Sign Detail Recorded Client Recorded Date Recorded By Document 03/11/21 08:59 [facility] [id number] 03/11/21 09:11 [facility] 03/11/21 08:59 Wound Center Nurse 1 #5- L PLANTAR FOOT 1ST MET -Combined with other wound No -Current Size (cm) - Length 0.1 -Current Size (cm) - Width 0.1 -Current Size (cm) - Depth 0.1 -Total Square Cm 0.01 -Epithelialization Large 67-100% -Tunneling No -Undermining/Tunneling No -Circular Undermining No -Exudate Amt None Present -Granulation Amt None Present (0 %) -Slough/Fibrin Yes -Necrosis Amt Large (67-100%) -Necrotic Tissue Type Adherent Slough -Texture (Angie-wound Skin Appearance) Callus -Moisture (Angie-wound Skin Appearance) Dry/Scaly -Color (Angie-wound Skin Appearance) Assessed -Temperature (Angie-wound Skin No Abnormality Appearance) (Pt Warm) -Tenderness on Palpation (Angie-wound No Skin Appearance) -Ulcer Cleansing SOAPY WATER -Foul Odor after Cleansing No -Anesthetic Used 5% Lidocaine Gel #4- L PLANTAR 3RD TOE -Combined with other wound No -Current Size (cm) - Length 1.5 -Current Size (cm) - Width 1.6 -Current Size (cm) - Depth 0.2 -Total Square Cm 2.40 -Photo Taken No -Epithelialization None Present -Tunneling No -Undermining/Tunneling No -Circular Undermining No -Exudate Amt Medium -Exudate Type Serosanguineous -Wound Margin Distinct, Outline Attached -Granulation Amt Large (67-100%) -Granulation Quality Hyper- granulation,Red -Slough/Fibrin No -Necrosis Amt None Present (0 %) -Texture (Angie-wound Skin Appearance) Assessed,Callus ,Scarring -Moisture (Angie-wound Skin Appearance) Assessed -Color (Angie-wound Skin Appearance) Assessed -Temperature (Angie-wound Skin No Abnormality Appearance) (Pt Warm) -Tenderness on Palpation (Angie-wound No Skin Appearance) -Ulcer Cleansing SOAPY WATER -Foul Odor after Cleansing No -Anesthetic Used 5% Lidocaine Gel Lower Limb Edema Present Yes Left Calf (cm) 39.8 Point of Measurement (cm from the medial 24.5 instep) WC - Nurse 2 - General Ulcer CM Notes Start: 02/25/21 09:12 Freq: Status: Active Protocol: Activity Type Activity Date Activity User E-Sign Co-Sign Detail Recorded Client Recorded Date Recorded By Document 03/11/21 09:18 MW [id number] 03/11/21 09:31 MW 03/11/21 09:18 Wound Center Nurse 2 #5- L PLANTAR FOOT 1ST MET -Time 09:19 -Correct Patient Yes -Correct Side, Site, Position Yes -Correct Procedure Yes -Procedure Performed Yes -Type of Procedure Debridement -Clinical Debridement Subcutaneous -Tissue Removed Subcutaneous -Post Debridement (cm) - Length 0.2 -Post Debridement (cm) - Width 0.5 -Post Debridement (cm) - Depth 0.1 -Total Square (Post) (cm) 0.10 -Area of Debridement (cm) - Length 0.2 -Area of Debridement (cm) - Width 0.5 -Total Square (Area) (cm) 0.10 -Tunneling No -Undermining/Tunneling No -Circular Undermining No -Wound/Ulcer Outcome Not Healed -Ulcer Cleansing Rinsed/ Irrigated with Saline -Foul Odor after Cleansing No -Bioengineered Tissue No -Bleeding Controlled with Pressure -Offloading No -Treatment Response Procedure Tolerated Well -Debridement - Subq, 1st 20sq cm Yes #4- L PLANTAR 3RD TOE -Time 09:21 -Correct Patient Yes -Correct Side, Site, Position Yes -Correct Procedure Yes -Procedure Performed Yes -Type of Procedure Debridement -Clinical Debridement Subcutaneous -Tissue Removed Subcutaneous -Post Debridement (cm) - Length 1.4 -Post Debridement (cm) - Width 1.6 -Post Debridement (cm) - Depth 0.2 -Total Square (Post) (cm) 2.24 -Area of Debridement (cm) - Length 1.4 -Area of Debridement (cm) - Width 1.6 -Total Square (Area) (cm) 2.24 -Tunneling No -Undermining/Tunneling No -Circular Undermining No -Wound/Ulcer Outcome Not Healed -Ulcer Cleansing Rinsed/ Irrigated with Saline -Foul Odor after Cleansing No -Bioengineered Tissue Yes -Type of Bioengineered Tissue Epifix 18mm Disc -Expiration Date 11/14/25 -Product Lot Number [id number] -Percent Used 100 -Lot number of Saline Used [id number] -Bleeding Controlled with Pressure -Offloading No -Debridement - Subq, 1st 20sq cm No -Apply Skin Sub - 1st 25 sq cm - Feet 1 -Epifix 18mm Disc 3 Pain Scale: 0-10 Numeric Is Patient Pain Free? No WC - Nurse 3 - General Ulcer D/C NN Start: 02/25/21 09:12 Freq: Status: Active Protocol: Activity Type Activity Date Activity User E-Sign Co-Sign Detail Recorded Client Recorded Date Recorded By Document 03/11/21 09:47 [facility] [id number] 03/11/21 09:48 [facility] 03/11/21 09:47 Wound Care Nurse 3 #5- L PLANTAR FOOT 1ST MET -Other Dressing EPIFIX -Primary Dressing Covered/Secured with Dry Gauze & Roll Gauze, Secured with Tape #4- L PLANTAR 3RD TOE -Other Dressing EPIFIX -Primary Dressing Covered/Secured with Dry Gauze & Roll Gauze, Secured with Tape Left -Other APPLIED PTS OWN DOUBLE LAYER TUBI Treatment Response Procedure Tolerated Well Pain Scale: 0-10 Numeric Is Patient Pain Free? Yes WC - Visit Discharge Discharge Condition Stable Ambulatory Status Ambulatory Transportation Private Auto Accompanied by Assessment & Plan Assessment/Plan (1) Osteomyelitis of great toe of left foot: Status: Acute Code(s): M86.9 - Osteomyelitis, unspecified (2) 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: Status: Acute Code(s): E08.621 - Diabetes mellitus due to underlying condition with foot ulcer; L97.509 - Non-pressure chronic ulcer of other part of unspecified foot with unspecified severity Qualifiers: Laterality: left Non-pressure ulcer stage: with fat layer exposed Qualified Code(s): E08.621 - Diabetes mellitus due to underlying condition with foot ulcer; L97.522 - Non-pressure chronic ulcer of other part of left foot with fat layer exposed (3) Diabetic foot ulcer associated with type 2 diabetes mellitus: Status: Chronic Code(s): E11.621 - Type 2 diabetes mellitus with foot ulcer; L97.509 - Non-pressure chronic ulcer of other part of unspecified foot with unspecified severity Qualifiers: Diabetic foot ulcer location: toe Laterality: left Non-pressure ulcer stage: with bone involvement without evidence of necrosis Qualified Code(s): E11.621 - Type 2 diabetes mellitus with foot ulcer; L97.526 - 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 involvement without evidence of necrosis (4) Diabetes mellitus: Status: Chronic Code(s): E11.9 - Type 2 diabetes mellitus without complications Qualifiers: Diabetes mellitus complication detail: with foot ulcer Diabetes mellitus complication status: with skin complications Diabetes mellitus long term care administrator insulin use: without fci use Diabetes mellitus type: type 2 Qualified Code(s): E11.621 - Type 2 diabetes mellitus with foot ulcer; L97.509 - Non-pressure chronic ulcer of other part of unspecified foot with unspecified severity (5) Chronic osteomyelitis involving ankle and foot: Status: Chronic Code(s): M86.679 - Other chronic osteomyelitis, unspecified ankle and foot Qualifiers: Laterality: left Qualified Code(s): M86.672 - Other chronic osteomyelitis, left ankle and foot Plan: The patient appears to be tolerating hyperbaric oxygen therapy well, which will be continued as per his medical treatment plan. He was instructed to hold his glipizide prior to treatments and to decrease his metformin to 1/2 tablet in the morning on days that he is having treatments. Will continue to monitor his sugars closely and adjust medication as needed to prevent hypoglycemia during treatments and maintain adequate glucose control.
== END 2021-03-13 23:59 ==
LOC: WC 10:00
PROVIDERS: PCP Family Medicine; Referring Provider Podiatrist Foot & Ankle Surgery; Visit Provider Nurse Practitioner
DX: E11.621 Type 2 diabetes mellitus with foot ulcer (principal); L97.526 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 involvement without evidence of necrosis; T81.89XD Other complications of procedures, not elsewhere classified, subsequent encounter; L97.522 Non-pressure chronic ulcer of other part of left foot with fat layer exposed; M86.9 Osteomyelitis, unspecified; I10 Essential (primary) hypertension; G89.29 Other chronic pain; G47.33 Obstructive sleep apnea (adult) (pediatric); E78.5 Hyperlipidemia, unspecified; Z87.891 Personal history of nicotine dependence; M71.22 Synovial cyst of popliteal space [Baker], left knee; M71.21 Synovial cyst of popliteal space [Baker], right knee; Z79.84 Long term (current) use of oral hypoglycemic drugs; Z88.0 Allergy status to penicillin; Z88.1 Allergy status to other antibiotic agents; Z88.2 Allergy status to sulfonamides; I27.21 Secondary pulmonary arterial hypertension; R60.0 Localized edema
CPT/HCPCS: 11042; 15275; 82962; 87070; 87075; 87077; 87186; 87205; 93923; 93970; 99183; 99213; Q4186; G0277; G0463

== ENCOUNTER 2021-04-10 10:00 | Outpatient (RCR) | payer MEDICARE, OTHER, SELFPAY ==
[2021-03-11 08:59] VITALS: BMI 31.8
[2021-03-14 00:54] VITALS: BP 144/87; PULSE 77; RESP 16; TEMP 36.7
[2021-03-16 10:11] LABS: Bedside Glucose 185 mg/dL (70-110)
[2021-03-16 12:07] VITALS: BP 154/76; BP 162/87; PULSE 70; PULSE 77; RESP 16; RESP 6; TEMP 36.6; TEMP 36.7
[2021-03-16 12:35] LABS: Bedside Glucose 130 mg/dL (70-110)
--- NOTE | 2021-03-17 08:00 | PCM.HBO.PN ---
History of Present Illness Date of Service: 03/16/21 Chief Complaint: Non healing Left Great toe plantar wound and left third toe plantar wound History of Wound: Mr Hatch Was referred here by his surveillance technician due to nonhealing left great toe wound status post surgery. Surgery was on 25 March and per patient was uneventful however has had delayed healing of his surgical wound. He has been on a 3-week course of doxycycline History of diabetes mellitus and per patient his last A1c was 7.6. He reports compliance with his medication. Denies chills, fever or otherwise feeling of unwell at this time. X-ray back in July 2020 showed osteomyelitis of the left great toe since then he has developed open area on the plantar side of the third toe. Patient is undergoing treatment with advanced wound care as well as hyperbaric oxygen treatment to salvage his left foot. Subjective Subjective: Progress: Today is the 3rd treatment of hyperbaric oxygen therapy. The patient is scheduled for 30 treatments total. Tolerance of hyperbaric oxygen therapy: Hyperbaric oxygen treatment was provided as per the facility's protocol at 2.0 CLAY in 100% oxygen for 90 minutes without air breaks. The patient tolerated hyperbaric oxygen well, without complications or complaints. Upon emergence of the hyperbaric chamber, the patient's vital signs remained stable. Objective Data Objective Data Vital Signs: Vital Signs Temp Pulse Resp BP 98 F 77 16 162/87 H 03/16/21 12:07 03/16/21 12:07 03/16/21 12:07 03/16/21 12:07 Weight: 235 lb Body Mass Index (BMI) 31.8 Lab / Micro Data Labs: Laboratory Results - last 24 hr 03/16/21 03/16/21 10:04 12:30 POC Glucose 185 H 130 H Exam Physical Exam Const alert, oriented x3 and no apparent distress General Appearance: cooperative HEENT normocephalic and head/scalp atraumatic External Auditory Canal: EAC's normal Tympanic Membrane: TM's normal bilaterally Psych mental status grossly normal and affect normal Appearance: grossly normal Speech: normal speech Assessment & Plan Assessment/Plan (1) Osteomyelitis of great toe of left foot: Status: Acute Code(s): M86.9 - Osteomyelitis, unspecified Plan: The patient is benefiting from hyperbaric oxygen therapy. This will be continued as per the patient's medical plan. (2) 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: Status: Acute Code(s): E08.621 - Diabetes mellitus due to underlying condition with foot ulcer; L97.509 - Non-pressure chronic ulcer of other part of unspecified foot with unspecified severity Qualifiers: Laterality: left Non-pressure ulcer stage: with fat layer exposed Qualified Code(s): E08.621 - Diabetes mellitus due to underlying condition with foot ulcer; L97.522 - Non-pressure chronic ulcer of other part of left foot with fat layer exposed (3) Diabetic foot ulcer associated with type 2 diabetes mellitus: Status: Chronic Code(s): E11.621 - Type 2 diabetes mellitus with foot ulcer; L97.509 - Non-pressure chronic ulcer of other part of unspecified foot with unspecified severity Qualifiers: Diabetic foot ulcer location: toe Laterality: left Non-pressure ulcer stage: with bone involvement without evidence of necrosis Qualified Code(s): E11.621 - Type 2 diabetes mellitus with foot ulcer; L97.526 - 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 involvement without evidence of necrosis (4) Diabetes mellitus: Status: Chronic Code(s): E11.9 - Type 2 diabetes mellitus without complications Qualifiers: Diabetes mellitus complication detail: with foot ulcer Diabetes mellitus complication status: with skin complications Diabetes mellitus residential insulin use: without residential use Diabetes mellitus type: type 2 Qualified Code(s): E11.621 - Type 2 diabetes mellitus with foot ulcer; L97.509 - Non-pressure chronic ulcer of other part of unspecified foot with unspecified severity (5) Chronic osteomyelitis involving ankle and foot: Status: Chronic Code(s): M86.679 - Other chronic osteomyelitis, unspecified ankle and foot Qualifiers: Laterality: left Qualified Code(s): M86.672 - Other chronic osteomyelitis, left ankle and foot
[2021-03-17 10:10] LABS: Bedside Glucose 162 mg/dL (70-110)
[2021-03-17 10:57] VITALS: BP 153/86; BP 159/81; PULSE 64; PULSE 69; RESP 16; TEMP 36.6
[2021-03-17 12:26] LABS: Bedside Glucose 138 mg/dL (70-110)
--- NOTE | 2021-03-17 15:24 | PCM.HBO.PN ---
History of Present Illness Date of Service: 03/18/21 Chief Complaint: Non healing Left Great toe plantar wound and left third toe plantar wound with osteomyelitis History of Wound: Mr Hatch Was referred here by his glass deposition tender due to nonhealing left great toe wound status post surgery. Surgery was on 25 March and per patient was uneventful however has had delayed healing of his surgical wound. He has been on a 3-week course of doxycycline History of diabetes mellitus and per patient his last A1c was 7.6. He reports compliance with his medication. Denies chills, fever or otherwise feeling of unwell at this time. X-ray back in July 2020 showed osteomyelitis of the left great toe since then he has developed open area on the plantar side of the third toe. Patient is undergoing treatment with advanced wound care as well as hyperbaric oxygen treatment to salvage his left foot. Progress of Wound: Hyperbaric oxygen therapy was administered as per the facility's protocol. Today's hyperbaric oxygen therapy session represents the fourth such session, of an anticipated 30 such sessions. Hyperbaric oxygen therapy was administered at 2 tulio for 90 minutes with no air breaks. Patient tolerated hyperbaric oxygen therapy well, without complaints or complications. Upon emergence from the hyperbaric chamber, the patient's vital signs remained stable. He was discharged in good condition. Pre- and post-blood glucose measurements are documented elsewhere. Objective Data Objective Data Vital Signs: Vital Signs Temp Pulse Resp BP 97.9 F 64 16 153/86 H 03/17/21 10:57 03/17/21 10:57 03/17/21 10:57 03/17/21 10:57 Weight: 235 lb Body Mass Index (BMI) 31.8 Lab / Micro Data Labs: Laboratory Results - last 24 hr 03/17/21 03/17/21 10:06 12:21 POC Glucose 162 H 138 H Exam Physical Exam Const alert, oriented x3 and no apparent distress General Appearance: cooperative and well developed HEENT normocephalic Head and Scalp: atraumatic Eyes PERRL and EOMs intact bilaterally Resp normal respiratory effort and no use of accessory muscles Psych Appearance: grossly normal Assessment & Plan Assessment/Plan (1) Osteomyelitis of great toe of left foot: Status: Acute Code(s): M86.9 - Osteomyelitis, unspecified (2) 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: Status: Acute Code(s): E08.621 - Diabetes mellitus due to underlying condition with foot ulcer; L97.509 - Non-pressure chronic ulcer of other part of unspecified foot with unspecified severity Qualifiers: Laterality: left Non-pressure ulcer stage: with fat layer exposed Qualified Code(s): E08.621 - Diabetes mellitus due to underlying condition with foot ulcer; L97.522 - Non-pressure chronic ulcer of other part of left foot with fat layer exposed (3) Diabetic foot ulcer associated with type 2 diabetes mellitus: Status: Chronic Code(s): E11.621 - Type 2 diabetes mellitus with foot ulcer; L97.509 - Non-pressure chronic ulcer of other part of unspecified foot with unspecified severity Qualifiers: Diabetic foot ulcer location: toe Laterality: left Non-pressure ulcer stage: with bone involvement without evidence of necrosis Qualified Code(s): E11.621 - Type 2 diabetes mellitus with foot ulcer; L97.526 - 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 involvement without evidence of necrosis Plan: The patient appears to be tolerating hyperbaric oxygen therapy well, which will be continued as per the patient's medical plan.
[2021-03-18 08:56] VITALS: BP 175/73; PULSE 65; TEMP 36.6; BMI 31.8
[2021-03-18 09:50] LABS: Bedside Glucose 187 mg/dL (70-110)
[2021-03-18 11:50] VITALS: BP 175/73; PULSE 65; RESP 16; TEMP 36.6
--- NOTE | 2021-03-18 11:55 | PN.PCM_ITS ---
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 Surgery was on 25 March and per patient was uneventful however has had delayed healing of his surgical wound. He has been on a 3-week course of doxycycline History of diabetes mellitus and per patient his last A1c was 7.6. He reports compliance with his medication. Denies chills, fever or otherwise feeling of unwell at this time. X-ray back in July 2020 showed osteomyelitis of the left great toe since then he has developed open area on the plantar side of the third toe. Patient is undergoing treatment with advanced wound care as well as hyperbaric oxygen treatment to salvage his left foot. Progress of Wound: Hyperbaric oxygen therapy was administered as per the facility's protocol. Today's hyperbaric oxygen therapy session represents the fourth such session, of an anticipated 30 such sessions. Hyperbaric oxygen therapy was administered at 2 tulio for 90 minutes with no air breaks. Patient tolerated hyperbaric oxygen therapy well, without complaints or complications. Upon emergence from the hyperbaric chamber, the patient's vital signs remained stable. He was discharged in good condition. Pre- and post-blood glucose measurements are documented elsewhere. Subjective Subjective: States has been offloading more than usual. Objective Data Objective Data Vital Signs: Vital Signs Temp Pulse Resp BP 97.9 F 65 16 175/73 H 03/18/21 08:56 03/18/21 08:56 03/17/21 10:57 03/18/21 08:56 Weight: 235 lb Body Mass Index (BMI) 31.8 Lab / Micro Data Labs: Laboratory Results - last 24 hr 03/17/21 03/18/21 12:21 09:47 POC Glucose 138 H 187 H Assessment & Plan Assessment/Plan (1) Osteomyelitis of great toe of left foot: Status: Acute Code(s): M86.9 - Osteomyelitis, unspecified Plan: meets with the I&D Dr in about 2 weeks baseof the toe is healed. continues HBO treatments (2) 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: Status: Acute Code(s): E08.621 - Diabetes mellitus due to underlying condition with foot ulcer; L97.509 - Non-pressure chronic ulcer of other part of unspecified foot with unspecified severity Qualifiers: Laterality: left Non-pressure ulcer stage: with fat layer exposed Qualified Code(s): E08.621 - Diabetes mellitus due to underlying condition with foot ulcer; L97.522 - Non-pressure chronic ulcer of other part of left foot with fat layer exposed Plan: 3rd toe continue epifix #3 to the plantar toe with wound veil and steri-strips Aquacel-Xtra and gauze dressing (3) Diabetic foot ulcer associated with type 2 diabetes mellitus: Status: Chronic Code(s): E11.621 - Type 2 diabetes mellitus with foot ulcer; L97.509 - Non-pressure chronic ulcer of other part of unspecified foot with unspecified severity Qualifiers: Diabetic foot ulcer location: toe Laterality: left Non-pressure ulcer stage: with bone involvement without evidence of necrosis Qualified Code(s): E11.621 - Type 2 diabetes mellitus with foot ulcer; L97.526 - 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 involvement without evidence of necrosis (4) Nonhealing nonsurgical wound with fat layer exposed: Status: Acute Code(s): T14.8XXA - Other injury of unspecified body region, initial encounter Plan: follow up 1 week Physical Exam Const oriented x3 General Appearance: cooperative Exam Limitations: no limitations HEENT normocephalic Head and Scalp: normal to inspection Face and Sinus: normal facial exam Nose: external nose normal General Ear: hearing grossly impaired External Ear: external ears normal Mouth: oral and palatal mucosa normal Eyes PERRL General Eye: normal appearance of both eyes Neck full ROM General: normal visual inspection Resp normal respiratory effort Effort and Inspection: able to speak in complete sentences Auscultation: clear to auscultation bilaterally Cardio regular rate and regular rhythm Palpation: normal PMI Rate: regular rate Rhythm: regular rhythm GI Auscultation: normoactive bowel sounds Palpation: soft and no hepatosplenomegaly external exam normal Back/Spine Cervical Spine: cervical ROM normal Thoracic Spine / Upper Back: normal to inspection Lumbar Spine / Lower Back: normal to inspection Extremity normal to inspection General Extremity: normal exam except as noted Skin no rashes or lesions noted Wounds: amputation and wounds noted Wound Narrative: wound on the baseof the L great toe healed and the 3 plantar side of the toe open and beefy red Neuro oriented x3 Psych Appearance: grossly normal Speech: normal speech Thought Content: normal thought content Judgement: judgement good Debridement Note Debridement Note Post-Debridement Measurements and Additional Note: Post-Debridement Measurements/Treatment JONNY - Nurse 2 - General Ulcer CM Notes Start: 03/16/21 12:07 Freq: Status: Active Protocol: Activity Type Activity Date Activity User E-Sign Co-Sign Detail Recorded Client Recorded Date Recorded By Document 03/18/21 09:23 MW [id number] 03/18/21 09:32 MW 03/18/21 09:23 Wound Center Nurse 2 #5- L PLANTAR FOOT 1ST MET -Time 09:24 -Correct Patient Yes -Correct Side, Site, Position Yes -Correct Procedure Yes -Procedure Performed No -Post Debridement (cm) - Length 0 -Post Debridement (cm) - Width 0 -Post Debridement (cm) - Depth 0 -Total Square (Post) (cm) 0 -Wound/Ulcer Outcome Healed- Epithelialized #4- L PLANTAR 3RD TOE -Time 09:24 -Correct Patient Yes -Correct Side, Site, Position Yes -Correct Procedure Yes -Procedure Performed Yes -Type of Procedure Debridement -Clinical Debridement Subcutaneous -Tissue Removed Subcutaneous -Post Debridement (cm) - Length 1.5 -Post Debridement (cm) - Width 1.6 -Post Debridement (cm) - Depth 0.1 -Total Square (Post) (cm) 2.40 -Area of Debridement (cm) - Length 1.5 -Area of Debridement (cm) - Width 1.6 -Total Square (Area) (cm) 2.40 -Tunneling No -Undermining/Tunneling No -Circular Undermining No -Wound/Ulcer Outcome Not Healed -Ulcer Cleansing Rinsed/ Irrigated with Saline -Foul Odor after Cleansing No -Bioengineered Tissue Yes -Type of Bioengineered Tissue Epifix 18mm Disc -Expiration Date 11/14/25 -Product Lot Number [id number] -Percent Used 100 -Lot number of Saline Used [id number] -Bleeding Controlled with Pressure -Offloading No -Treatment Response Procedure Tolerated Well -Debridement - Subq, 1st 20sq cm No -Apply Skin Sub - 1st 25 sq cm - Feet 1 -Epifix 18mm Disc 3 Pain Scale: 0-10 Numeric Is Patient Pain Free? Yes JONNY - Nurse 3 - General Ulcer D/C NN Start: 03/16/21 12:07 Freq: Status: Active Protocol: Activity Type Activity Date Activity User E-Sign Co-Sign Detail Recorded Client Recorded Date Recorded By Document 03/18/21 09:47 NEEMA [id number] 03/18/21 09:48 NEEMA 03/18/21 09:47 Wound Care Nurse 3 #4- L PLANTAR 3RD TOE -Primary Dressing Applied Aquacel Extra -Primary Dressing Covered/Secured with Dry Gauze, Secured with Tape -Aquacel Extra 1 Pain Scale: 0-10 Numeric Is Patient Pain Free? Yes WC - Visit Discharge Discharge Condition Stable Ambulatory Status Ambulatory Transportation Private Auto Accompanied by Wound debrided: L 3rd toe Laterality: Left Type of Debridement: Excisional debridement Anesthesia Used: 5% Lidocaine Gel Depth: Down to and including healthy tissue Percentage of wound debrided: 100 Instrument Used: 5mm curette Tissue Removed: fibrin Severity: Limited To Skin Breakdown Amount of bleeding with debridement: None Bleeding Controlled with: Pressure Patient tolerated procedure: Patient tolerated procedure well Debridement Free Text: applied epi fix #3 to the plantar 3rd toe covered with veil then steri-strips . aquacel xtra then guaze covering
[2021-03-18 12:06] LABS: Bedside Glucose 111 mg/dL (70-110)
--- NOTE | 2021-03-18 12:42 | PCM.HBO.PN ---
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 Surgery was on 25 March and per patient was uneventful however has had delayed healing of his surgical wound. He has been on a 3-week course of doxycycline History of diabetes mellitus and per patient his last A1c was 7.6. He reports compliance with his medication. Denies chills, fever or otherwise feeling of unwell at this time. X-ray back in July 2020 showed osteomyelitis of the left great toe since then he has developed open area on the plantar side of the third toe. Patient is undergoing treatment with advanced wound care as well as hyperbaric oxygen treatment to salvage his left foot. Progress of Wound: Hyperbaric oxygen therapy was administered as per the facility's protocol. Today's hyperbaric oxygen therapy session represents the fourth such session, of an anticipated 30 such sessions. Hyperbaric oxygen therapy was administered at 2 tulio for 90 minutes with no air breaks. Patient tolerated hyperbaric oxygen therapy well, without complaints or complications. Upon emergence from the hyperbaric chamber, the patient's vital signs remained stable. He was discharged in good condition. Pre- and post-blood glucose measurements are documented elsewhere. Objective Data Objective Data treatment 5th HBO treatment tolerated well and was discharged in good condition Vital Signs: Vital Signs Temp Pulse Resp BP 97.8 F 65 16 175/73 H 03/18/21 11:50 03/18/21 11:50 03/18/21 11:50 03/18/21 11:50 Weight: 235 lb Body Mass Index (BMI) 31.8 Lab / Micro Data Labs: Laboratory Results - last 24 hr 03/18/21 03/18/21 09:47 12:03 POC Glucose 187 H 111 H Exam Nursing Assessment and Debridement Post-Debridement Measurements and Additional Note: Post-Debridement Measurements/Treatment WC - Nurse 1 - General Ulcer Assessment Start: 03/16/21 12:07 Freq: Status: Active Protocol: [email or web address] Activity Type Activity Date Activity User E-Sign Co-Sign Detail Recorded Client Recorded Date Recorded By Document 03/18/21 08:56 NEEMA [id number] 03/18/21 09:01 KR 03/18/21 08:56 - Today's Visit Information Type of service Follow-up Visit (Physician/SUPREME COURT JUDGE ) Arrival Mode Ambulatory Patient Identification Verified (Name & Yes ) Height and Weight Body Mass Index (BMI) 31.8 BMI Classification Obese Vital Signs Temperature (97.8 F-99.1 F) 97.9 F Temperature Source Temporal Pulse Rate (60-100) 65 Pulse Location Monitor Blood Pressure (90/60-120/80) 175/73 H Blood Pressure Mean (mm Hg) 107 Source Monitor Position Sitting Blood Pressure Location Right Arm History Since Last Visit- (Skip if this is Patient's initial visit) Have you changed medications since your No last visit? Any new allergies or adverse reactions No Had a fall/change in ADL's that may No increase risk of falls Signs or symptoms of abuse and/or No neglect since last visit Have you been in the hospital since your No last visit? Has dressing in place as prescribed Yes Has compression in place as prescribed Yes Has offloadiing in place as prescribed N/A Left Footwear Regular Shoe Right Footwear Regular Shoe Pain Scale: 0-10 Numeric Is Patient Pain Free? Yes - Nurse 1 - General Ulcer Measurement Start: 03/16/21 12:07 Freq: Status: Active Protocol: Activity Type Activity Date Activity User E-Sign Co-Sign Detail Recorded Client Recorded Date Recorded By Document 03/18/21 08:56 NEEMA [id number] 03/18/21 09:01 NEEMA 03/18/21 08:56 Wound Center Nurse 1 #5- L PLANTAR FOOT 1ST MET -Current Size (cm) - Length 0.1 -Current Size (cm) - Width 0.1 -Current Size (cm) - Depth 0.1 -Total Square Cm 0.01 -Exudate Amt Small -Exudate Type Serosanguineous -Wound Margin Distinct, Outline Attached -Granulation Amt None Present (0 %) -Granulation Quality Red -Necrosis Amt None Present (0 %) -Texture (Angie-wound Skin Appearance) Assessed, Scarring -Moisture (Angie-wound Skin Appearance) No Abnormality, Assessed -Temperature (Angie-wound Skin No Abnormality Appearance) (Pt Warm) -Tenderness on Palpation (Angie-wound No Skin Appearance) -Ulcer Cleansing Rinsed/ Irrigated with Saline -Foul Odor after Cleansing No -Anesthetic Used 4% Lidocaine Solution #4- L PLANTAR 3RD TOE -Current Size (cm) - Length 1.5 -Current Size (cm) - Width 1.5 -Current Size (cm) - Depth 0.3 -Total Square Cm 2.25 -Exudate Amt Medium -Exudate Type Serosanguineous -Wound Margin Distinct, Outline Attached -Granulation Amt Large (67-100%) -Granulation Quality Red -Necrosis Amt None Present (0 %) -Texture (Angie-wound Skin Appearance) Assessed, Scarring -Moisture (Angie-wound Skin Appearance) No Abnormality, Assessed -Color (Angie-wound Skin Appearance) No Abnormality, Assessed -Temperature (Angie-wound Skin No Abnormality Appearance) (Pt Warm) -Tenderness on Palpation (Angie-wound No Skin Appearance) -Ulcer Cleansing Rinsed/ Irrigated with Saline -Foul Odor after Cleansing No -Anesthetic Used 4% Lidocaine Solution WC - Nurse 2 - General Ulcer CM Notes Start: 03/16/21 12:07 Freq: Status: Active Protocol: Activity Type Activity Date Activity User E-Sign Co-Sign Detail Recorded Client Recorded Date Recorded By Document 03/18/21 09:23 MW [id number] 03/18/21 09:32 MW 03/18/21 09:23 Wound Center Nurse 2 #5- L PLANTAR FOOT 1ST MET -Time 09:24 -Correct Patient Yes -Correct Side, Site, Position Yes -Correct Procedure Yes -Procedure Performed No -Post Debridement (cm) - Length 0 -Post Debridement (cm) - Width 0 -Post Debridement (cm) - Depth 0 -Total Square (Post) (cm) 0 -Wound/Ulcer Outcome Healed- Epithelialized #4- L PLANTAR 3RD TOE -Time 09:24 -Correct Patient Yes -Correct Side, Site, Position Yes -Correct Procedure Yes -Procedure Performed Yes -Type of Procedure Debridement -Clinical Debridement Subcutaneous -Tissue Removed Subcutaneous -Post Debridement (cm) - Length 1.5 -Post Debridement (cm) - Width 1.6 -Post Debridement (cm) - Depth 0.1 -Total Square (Post) (cm) 2.40 -Area of Debridement (cm) - Length 1.5 -Area of Debridement (cm) - Width 1.6 -Total Square (Area) (cm) 2.40 -Tunneling No -Undermining/Tunneling No -Circular Undermining No -Wound/Ulcer Outcome Not Healed -Ulcer Cleansing Rinsed/ Irrigated with Saline -Foul Odor after Cleansing No -Bioengineered Tissue Yes -Type of Bioengineered Tissue Epifix 18mm Disc -Expiration Date 11/14/25 -Product Lot Number [id number] -Percent Used 100 -Lot number of Saline Used [id number] -Bleeding Controlled with Pressure -Offloading No -Treatment Response Procedure Tolerated Well -Debridement - Subq, 1st 20sq cm No -Apply Skin Sub - 1st 25 sq cm - Feet 1 -Epifix 18mm Disc 3 Pain Scale: 0-10 Numeric Is Patient Pain Free? Yes - Nurse 3 - General Ulcer D/C NN Start: 03/16/21 12:07 Freq: Status: Active Protocol: Activity Type Activity Date Activity User E-Sign Co-Sign Detail Recorded Client Recorded Date Recorded By Document 03/18/21 09:47 NEEMA [id number] 03/18/21 09:48 NEEMA 03/18/21 09:47 Wound Care Nurse 3 #4- L PLANTAR 3RD TOE -Primary Dressing Applied Aquacel Extra -Primary Dressing Covered/Secured with Dry Gauze, Secured with Tape -Aquacel Extra 1 Pain Scale: 0-10 Numeric Is Patient Pain Free? Yes - Visit Discharge Discharge Condition Stable Ambulatory Status Ambulatory Transportation Private Auto Accompanied by
[2021-03-19 10:16] LABS: Bedside Glucose 157 mg/dL (70-110)
[2021-03-19 12:45] LABS: Bedside Glucose 128 mg/dL (70-110)
--- NOTE | 2021-03-19 13:19 | HBO.PN.PCM_ITS ---
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 Surgery was on 25 March and per patient was uneventful however has had delayed healing of his surgical wound. He has been on a 3-week course of doxycycline History of diabetes mellitus and per patient his last A1c was 7.6. He reports compliance with his medication. Denies chills, fever or otherwise feeling of unwell at this time. X-ray back in July 2020 showed osteomyelitis of the left great toe since then he has developed open area on the plantar side of the third toe. Patient is undergoing treatment with advanced wound care as well as hyperbaric oxygen treatment to salvage his left foot. Subjective Subjective: Mr Hatch is a 75 yo who presents for HBO treatment for osteomyelitis and diabetic foot ulcer Progress: Today's hyperbaric oxygen session represents the 5th session. Tolerance of hyperbaric oxygen therapy: Hyperbaric oxygen therapy was administered as per the facility's protocol. Hyperbaric oxygen therapy was administered at 2 tulio for 90 minutes with no air breaks. The patient tolerated hyperbaric oxygen therapy well, without complaints or complications. Upon emergence from the hyperbaric chamber, the patient's vital signs remained stable. He was discharged in good condition, See blood glucose levels documented elsewhere. Objective Data Objective Data Vital Signs: Vital Signs Temp Pulse Resp BP 97.8 F 65 16 175/73 H 03/18/21 11:50 03/18/21 11:50 03/18/21 11:50 03/18/21 11:50 Weight: 235 lb Body Mass Index (BMI) 31.8 Lab / Micro Data Labs: Laboratory Results - last 24 hr 03/19/21 03/19/21 10:09 12:27 POC Glucose 157 H 128 H Exam Physical Exam Const alert, oriented x3 and no apparent distress General Appearance: cooperative and comfortable HEENT normocephalic, hearing grossly normal bilaterally and TM's normal bilaterally Eyes EOMs intact bilaterally Neck full ROM and supple General: normal visual inspection Resp normal respiratory effort Effort and Inspection: able to speak in complete sentences Cardio regular rate Neuro oriented x3, CN's II-XII intact bilaterally and moves all extremities Psych mental status grossly normal Appearance: grossly normal Nursing Assessment and Debridement Post-Debridement Measurements and Additional Note: Post-Debridement Measurements/Treatment JONNY - Nurse 1 - General Ulcer Assessment Start: 03/16/21 12:07 Freq: Status: Active Protocol: REMA Activity Type Activity Date Activity User E-Sign Co-Sign Detail Recorded Client Recorded Date Recorded By Document 03/18/21 08:56 NEEMA [id number] 03/18/21 09:01 NEEMA 03/18/21 08:56 WC - Today's Visit Information Type of service Follow-up Visit (Physician/CORE MOUNTER ) Arrival Mode Ambulatory Patient Identification Verified (Name & Yes ) Height and Weight Body Mass Index (BMI) 31.8 BMI Classification Obese Vital Signs Temperature (97.8 F-99.1 F) 97.9 F Temperature Source Temporal Pulse Rate (60-100) 65 Pulse Location Monitor Blood Pressure (90/60-120/80) 175/73 H Blood Pressure Mean (mm Hg) 107 Source Monitor Position Sitting Blood Pressure Location Right Arm History Since Last Visit- (Skip if this is Patient's initial visit) Have you changed medications since your No last visit? Any new allergies or adverse reactions No Had a fall/change in ADL's that may No increase risk of falls Signs or symptoms of abuse and/or No neglect since last visit Have you been in the hospital since your No last visit? Has dressing in place as prescribed Yes Has compression in place as prescribed Yes Has offloadiing in place as prescribed N/A Left Footwear Regular Shoe Right Footwear Regular Shoe Pain Scale: 0-10 Numeric Is Patient Pain Free? Yes JONNY - Nurse 1 - General Ulcer Measurement Start: 03/16/21 12:07 Freq: Status: Active Protocol: Activity Type Activity Date Activity User E-Sign Co-Sign Detail Recorded Client Recorded Date Recorded By Document 03/18/21 08:56 NEEMA [id number] 03/18/21 09:01 NEEMA 03/18/21 08:56 Wound Center Nurse 1 #5- L PLANTAR FOOT 1ST MET -Current Size (cm) - Length 0.1 -Current Size (cm) - Width 0.1 -Current Size (cm) - Depth 0.1 -Total Square Cm 0.01 -Exudate Amt Small -Exudate Type Serosanguineous -Wound Margin Distinct, Outline Attached -Granulation Amt None Present (0 %) -Granulation Quality Red -Necrosis Amt None Present (0 %) -Texture (Angie-wound Skin Appearance) Assessed, Scarring -Moisture (Angie-wound Skin Appearance) No Abnormality, Assessed -Temperature (Angie-wound Skin No Abnormality Appearance) (Pt Warm) -Tenderness on Palpation (Angie-wound No Skin Appearance) -Ulcer Cleansing Rinsed/ Irrigated with Saline -Foul Odor after Cleansing No -Anesthetic Used 4% Lidocaine Solution #4- L PLANTAR 3RD TOE -Current Size (cm) - Length 1.5 -Current Size (cm) - Width 1.5 -Current Size (cm) - Depth 0.3 -Total Square Cm 2.25 -Exudate Amt Medium -Exudate Type Serosanguineous -Wound Margin Distinct, Outline Attached -Granulation Amt Large (67-100%) -Granulation Quality Red -Necrosis Amt None Present (0 %) -Texture (Angie-wound Skin Appearance) Assessed, Scarring -Moisture (Angie-wound Skin Appearance) No Abnormality, Assessed -Color (Angie-wound Skin Appearance) No Abnormality, Assessed -Temperature (Angie-wound Skin No Abnormality Appearance) (Pt Warm) -Tenderness on Palpation (Angie-wound No Skin Appearance) -Ulcer Cleansing Rinsed/ Irrigated with Saline -Foul Odor after Cleansing No -Anesthetic Used 4% Lidocaine Solution WC - Nurse 2 - General Ulcer CM Notes Start: 03/16/21 12:07 Freq: Status: Active Protocol: Activity Type Activity Date Activity User E-Sign Co-Sign Detail Recorded Client Recorded Date Recorded By Document 03/18/21 09:23 MW [id number] 03/18/21 09:32 MW 03/18/21 09:23 Wound Center Nurse 2 #5- L PLANTAR FOOT 1ST MET -Time 09:24 -Correct Patient Yes -Correct Side, Site, Position Yes -Correct Procedure Yes -Procedure Performed No -Post Debridement (cm) - Length 0 -Post Debridement (cm) - Width 0 -Post Debridement (cm) - Depth 0 -Total Square (Post) (cm) 0 -Wound/Ulcer Outcome Healed- Epithelialized #4- L PLANTAR 3RD TOE -Time 09:24 -Correct Patient Yes -Correct Side, Site, Position Yes -Correct Procedure Yes -Procedure Performed Yes -Type of Procedure Debridement -Clinical Debridement Subcutaneous -Tissue Removed Subcutaneous -Post Debridement (cm) - Length 1.5 -Post Debridement (cm) - Width 1.6 -Post Debridement (cm) - Depth 0.1 -Total Square (Post) (cm) 2.40 -Area of Debridement (cm) - Length 1.5 -Area of Debridement (cm) - Width 1.6 -Total Square (Area) (cm) 2.40 -Tunneling No -Undermining/Tunneling No -Circular Undermining No -Wound/Ulcer Outcome Not Healed -Ulcer Cleansing Rinsed/ Irrigated with Saline -Foul Odor after Cleansing No -Bioengineered Tissue Yes -Type of Bioengineered Tissue Epifix 18mm Disc -Expiration Date 11/14/25 -Product Lot Number [id number] -Percent Used 100 -Lot number of Saline Used [id number] -Bleeding Controlled with Pressure -Offloading No -Treatment Response Procedure Tolerated Well -Debridement - Subq, 1st 20sq cm No -Apply Skin Sub - 1st 25 sq cm - Feet 1 -Epifix 18mm Disc 3 Pain Scale: 0-10 Numeric Is Patient Pain Free? Yes - Nurse 3 - General Ulcer D/C NN Start: 03/16/21 12:07 Freq: Status: Active Protocol: Activity Type Activity Date Activity User E-Sign Co-Sign Detail Recorded Client Recorded Date Recorded By Document 03/18/21 09:47 NEEMA [id number] 03/18/21 09:48 NEEMA 03/18/21 09:47 Wound Care Nurse 3 #4- L PLANTAR 3RD TOE -Primary Dressing Applied Aquacel Extra -Primary Dressing Covered/Secured with Dry Gauze, Secured with Tape -Aquacel Extra 1 Pain Scale: 0-10 Numeric Is Patient Pain Free? Yes - Visit Discharge Discharge Condition Stable Ambulatory Status Ambulatory Transportation Private Auto Accompanied by Assessment & Plan Assessment/Plan (1) Osteomyelitis of great toe of left foot: (2) 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: QUALIFIERS: Laterality: left Non-pressure ulcer stage: with fat layer exposed Qualified Code(s): E08.621 - Diabetes mellitus due to underlying condition with foot ulcer; L97.522 - Non-pressure chronic ulcer of other part of left foot with fat layer exposed PLAN: Hyperbaric oxygen treatment which was administered as per the facility's per protocol at 90 tulio for 2 hours. Hyperbaric oxygen treatment was well-tolerated. Upon emerging from the hyperbaric oxygen chamber, his vitals remained stable and he was discharged in stable condition. He will continue hyperbaric oxygen treatment as per facility's protocol. This note was generated with [employer] dictation software. It may contain incorrect words, spelling, and punctuation that were not noted in checking the note before signing. Charges/Coding Wound Center CF Procedures HBO Supervision: [id number] Hyperbaric Oxygen; supervision
[2021-03-19 13:51] VITALS: BP 135/81; BP 160/86; PULSE 72; PULSE 74; RESP 18; TEMP 36.4; TEMP 36.6
[2021-03-20 10:06] LABS: Bedside Glucose 214 mg/dL (70-110)
[2021-03-20 10:43] VITALS: BP 150/86; BP 156/81; PULSE 71; PULSE 76; RESP 16; TEMP 36.4; TEMP 36.5
[2021-03-20 12:21] LABS: Bedside Glucose 118 mg/dL (70-110)
--- NOTE | 2021-03-20 14:49 | PCM.HBO.PN ---
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 Surgery was on 25 March and per patient was uneventful however has had delayed healing of his surgical wound. He has been on a 3-week course of doxycycline History of diabetes mellitus and per patient his last A1c was 7.6. He reports compliance with his medication. Denies chills, fever or otherwise feeling of unwell at this time. X-ray back in July 2020 showed osteomyelitis of the left great toe since then he has developed open area on the plantar side of the third toe. Patient is undergoing treatment with advanced wound care as well as hyperbaric oxygen treatment to salvage his left foot. Subjective Subjective: Progress: Today's hyperbaric oxygen session represents the 7th session. Tolerance of hyperbaric oxygen therapy: Hyperbaric oxygen therapy was administered as per the facility's protocol. Hyperbaric oxygen therapy was administered at 2 tulio for 90 minutes with no air breaks. The patient tolerated hyperbaric oxygen therapy well, without complaints or complications. Upon emergence from the hyperbaric chamber, the patient's vital signs remained stable. He was discharged in good condition, See blood glucose levels documented elsewhere. Objective Data Objective Data Vital Signs: Vital Signs Temp Pulse Resp BP 97.7 F L 76 16 150/86 H 03/20/21 10:43 03/20/21 10:43 03/20/21 10:43 03/20/21 10:43 Weight: 106.594 kg Body Mass Index (BMI) 31.8 Lab / Micro Data Labs: Laboratory Results - last 24 hr 03/20/21 03/20/21 10:00 12:17 POC Glucose 214 H 118 H Exam Physical Exam Const alert, oriented x3 and no apparent distress General Appearance: cooperative Psych mental status grossly normal and affect normal Appearance: grossly normal and appropriate Nursing Assessment and Debridement Post-Debridement Measurements and Additional Note: Post-Debridement Measurements/Treatment WC - Nurse 1 - General Ulcer Assessment Start: 03/16/21 12:07 Freq: Status: Active Protocol: JONNY.LOWEXT Activity Type Activity Date Activity User E-Sign Co-Sign Detail Recorded Client Recorded Date Recorded By Document 03/18/21 08:56 [id number] 03/18/21 09:01 NEEMA 03/18/21 08:56 - Today's Visit Information Type of service Follow-up Visit (Physician/FRUIT ROOM HAND ) Arrival Mode Ambulatory Patient Identification Verified (Name & Yes ) Height and Weight Body Mass Index (BMI) 31.8 BMI Classification Obese Vital Signs Temperature (97.8 F-99.1 F) 97.9 F Temperature Source Temporal Pulse Rate (60-100) 65 Pulse Location Monitor Blood Pressure (90/60-120/80) 175/73 H Blood Pressure Mean (mm Hg) 107 Source Monitor Position Sitting Blood Pressure Location Right Arm History Since Last Visit- (Skip if this is Patient's initial visit) Have you changed medications since your No last visit? Any new allergies or adverse reactions No Had a fall/change in ADL's that may No increase risk of falls Signs or symptoms of abuse and/or No neglect since last visit Have you been in the hospital since your No last visit? Has dressing in place as prescribed Yes Has compression in place as prescribed Yes Has offloadiing in place as prescribed N/A Left Footwear Regular Shoe Right Footwear Regular Shoe Pain Scale: 0-10 Numeric Is Patient Pain Free? Yes - Nurse 1 - General Ulcer Measurement Start: 03/16/21 12:07 Freq: Status: Active Protocol: Activity Type Activity Date Activity User E-Sign Co-Sign Detail Recorded Client Recorded Date Recorded By Document 03/18/21 08:56 NEEMA [id number] 03/18/21 09:01 NEEMA 03/18/21 08:56 Wound Center Nurse 1 #5- L PLANTAR FOOT 1ST MET -Current Size (cm) - Length 0.1 -Current Size (cm) - Width 0.1 -Current Size (cm) - Depth 0.1 -Total Square Cm 0.01 -Exudate Amt Small -Exudate Type Serosanguineous -Wound Margin Distinct, Outline Attached -Granulation Amt None Present (0 %) -Granulation Quality Red -Necrosis Amt None Present (0 %) -Texture (Angie-wound Skin Appearance) Assessed, Scarring -Moisture (Angie-wound Skin Appearance) No Abnormality, Assessed -Temperature (Angie-wound Skin No Abnormality Appearance) (Pt Warm) -Tenderness on Palpation (Angie-wound No Skin Appearance) -Ulcer Cleansing Rinsed/ Irrigated with Saline -Foul Odor after Cleansing No -Anesthetic Used 4% Lidocaine Solution #4- L PLANTAR 3RD TOE -Current Size (cm) - Length 1.5 -Current Size (cm) - Width 1.5 -Current Size (cm) - Depth 0.3 -Total Square Cm 2.25 -Exudate Amt Medium -Exudate Type Serosanguineous -Wound Margin Distinct, Outline Attached -Granulation Amt Large (67-100%) -Granulation Quality Red -Necrosis Amt None Present (0 %) -Texture (Angie-wound Skin Appearance) Assessed, Scarring -Moisture (Angie-wound Skin Appearance) No Abnormality, Assessed -Color (Angie-wound Skin Appearance) No Abnormality, Assessed -Temperature (Angie-wound Skin No Abnormality Appearance) (Pt Warm) -Tenderness on Palpation (Angie-wound No Skin Appearance) -Ulcer Cleansing Rinsed/ Irrigated with Saline -Foul Odor after Cleansing No -Anesthetic Used 4% Lidocaine Solution WC - Nurse 2 - General Ulcer CM Notes Start: 03/16/21 12:07 Freq: Status: Active Protocol: Activity Type Activity Date Activity User E-Sign Co-Sign Detail Recorded Client Recorded Date Recorded By Document 03/18/21 09:23 MW [id number] 03/18/21 09:32 MW 03/18/21 09:23 Wound Center Nurse 2 #5- L PLANTAR FOOT 1ST MET -Time 09:24 -Correct Patient Yes -Correct Side, Site, Position Yes -Correct Procedure Yes -Procedure Performed No -Post Debridement (cm) - Length 0 -Post Debridement (cm) - Width 0 -Post Debridement (cm) - Depth 0 -Total Square (Post) (cm) 0 -Wound/Ulcer Outcome Healed- Epithelialized #4- L PLANTAR 3RD TOE -Time 09:24 -Correct Patient Yes -Correct Side, Site, Position Yes -Correct Procedure Yes -Procedure Performed Yes -Type of Procedure Debridement -Clinical Debridement Subcutaneous -Tissue Removed Subcutaneous -Post Debridement (cm) - Length 1.5 -Post Debridement (cm) - Width 1.6 -Post Debridement (cm) - Depth 0.1 -Total Square (Post) (cm) 2.40 -Area of Debridement (cm) - Length 1.5 -Area of Debridement (cm) - Width 1.6 -Total Square (Area) (cm) 2.40 -Tunneling No -Undermining/Tunneling No -Circular Undermining No -Wound/Ulcer Outcome Not Healed -Ulcer Cleansing Rinsed/ Irrigated with Saline -Foul Odor after Cleansing No -Bioengineered Tissue Yes -Type of Bioengineered Tissue Epifix 18mm Disc -Expiration Date 11/14/25 -Product Lot Number [id number] -Percent Used 100 -Lot number of Saline Used [id number] -Bleeding Controlled with Pressure -Offloading No -Treatment Response Procedure Tolerated Well -Debridement - Subq, 1st 20sq cm No -Apply Skin Sub - 1st 25 sq cm - Feet 1 -Epifix 18mm Disc 3 Pain Scale: 0-10 Numeric Is Patient Pain Free? Yes WC - Nurse 3 - General Ulcer D/C NN Start: 03/16/21 12:07 Freq: Status: Active Protocol: Activity Type Activity Date Activity User E-Sign Co-Sign Detail Recorded Client Recorded Date Recorded By Document 03/18/21 09:47 NEEMA [id number] 03/18/21 09:48 NEEMA 03/18/21 09:47 Wound Care Nurse 3 #4- L PLANTAR 3RD TOE -Primary Dressing Applied Aquacel Extra -Primary Dressing Covered/Secured with Dry Gauze, Secured with Tape -Aquacel Extra 1 Pain Scale: 0-10 Numeric Is Patient Pain Free? Yes WC - Visit Discharge Discharge Condition Stable Ambulatory Status Ambulatory Transportation Private Auto Accompanied by Assessment & Plan Assessment/Plan (1) Osteomyelitis of great toe of left foot: (2) 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: QUALIFIERS: Laterality: left Non-pressure ulcer stage: with fat layer exposed Qualified Code(s): E08.621 - Diabetes mellitus due to underlying condition with foot ulcer; L97.522 - Non-pressure chronic ulcer of other part of left foot with fat layer exposed PLAN: PLAN: Hyperbaric oxygen treatment which was administered as per the facility's per protocol at 90 tulio for 2 hours. Hyperbaric oxygen treatment was well-tolerated. Upon emerging from the hyperbaric oxygen chamber, his vitals remained stable and he was discharged in stable condition. He will continue hyperbaric oxygen treatment as per facility's protocol. 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
[2021-03-24 09:56] LABS: Bedside Glucose 162 mg/dL (70-110)
[2021-03-24 11:23] VITALS: BP 152/84; BP 166/85; PULSE 67; PULSE 72; RESP 16; TEMP 36.4
[2021-03-24 12:21] LABS: Bedside Glucose 97 mg/dL (70-110)
--- NOTE | 2021-03-24 14:12 | PCM.HBO.PN ---
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 Surgery was on 25 March and per patient was uneventful however has had delayed healing of his surgical wound. He has been on a 3-week course of doxycycline History of diabetes mellitus and per patient his last A1c was 7.6. He reports compliance with his medication. Denies chills, fever or otherwise feeling of unwell at this time. X-ray back in July 2020 showed osteomyelitis of the left great toe since then he has developed open area on the plantar side of the third toe. Patient is undergoing treatment with advanced wound care as well as hyperbaric oxygen treatment to salvage his left foot. Subjective Subjective Today's hyperbaric oxygen therapy session represents the 8th such session. Objective Data Objective Data Hyperbaric oxygen therapy was administered as per the facility's protocol. Hyperbaric oxygen therapy was administered at 2 tulio for 90 minutes with no air breaks. Patient tolerated hyperbaric oxygen therapy well, without complaints or complications. Upon emergence from the hyperbaric chamber, the patient's vital signs remained stable. He was discharged in good condition. Pre- and post- blood glucose levels were documented elsewhere. Vital Signs: Vital Signs Temp Pulse Resp BP 97.6 F L 67 16 152/84 H 03/24/21 11:23 03/24/21 11:23 03/24/21 11:23 03/24/21 11:23 Weight: 235 lb Body Mass Index (BMI) 31.8 Lab / Micro Data Labs: Laboratory Results - last 24 hr 03/24/21 03/24/21 09:49 12:08 POC Glucose 162 H 97 Exam Physical Exam Const alert, oriented x3, no apparent distress and well nourished General Appearance: cooperative and well developed HEENT normocephalic Head and Scalp: atraumatic Eyes PERRL and EOMs intact bilaterally Resp normal respiratory effort and no use of accessory muscles Psych Appearance: grossly normal Assessment & Plan Assessment/Plan (1) Osteomyelitis of great toe of left foot: (2) Nonhealing nonsurgical wound with fat layer exposed: (3) 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: QUALIFIERS: Laterality: left Non-pressure ulcer stage: with fat layer exposed Qualified Code(s): E08.621 - Diabetes mellitus due to underlying condition with foot ulcer; L97.522 - Non-pressure chronic ulcer of other part of left foot with fat layer exposed (4) Diabetic foot ulcer associated with type 2 diabetes mellitus: QUALIFIERS: Diabetic foot ulcer location: toe Laterality: left Non-pressure ulcer stage: with bone involvement without evidence of necrosis Qualified Code(s): E11.621 - Type 2 diabetes mellitus with foot ulcer; L97.526 - 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 involvement without evidence of necrosis (5) Decubitus ulcer limited to breakdown of skin (stage 2): QUALIFIERS: Pressure injury location: toe Laterality: left Qualified Code(s): L89.892 - Pressure ulcer of other site, stage 2 (6) Non-healing surgical wound: QUALIFIERS: Encounter type: subsequent encounter Qualified Code(s): T81.89XD - Other complications of procedures, not elsewhere classified, subsequent encounter (7) Acute osteomyelitis involving ankle and foot: (8) Chronic osteomyelitis involving ankle and foot: QUALIFIERS: Laterality: left Qualified Code(s): M86.672 - Other chronic osteomyelitis, left ankle and foot PLAN: The patient appears to be tolerating hyperbaric oxygen therapy well, which will be continued as per the patient's medical plan.
[2021-03-25 09:22] VITALS: BP 179/89; PULSE 89; TEMP 36.2; BMI 31.8
[2021-03-25 10:31] LABS: Bedside Glucose 108 mg/dL (70-110)
[2021-03-25 10:31] LABS: Bedside Glucose 118 mg/dL (70-110)
[2021-03-25 11:05] VITALS: BP 179/89; PULSE 78; RESP 16; TEMP 36.2
--- NOTE | 2021-03-25 11:42 | PN.PCM_ITS ---
History of Present Illness Date of Service: 03/25/21 Chief Complaint: Non healing Left Great toe plantar wound and left third toe plantar wound with osteomyelitis History of Wound: Mr Hatch Was referred here by his hot car operator due to nonhealing left great toe wound status post surgery. Surgery was on 25 March and per patient was uneventful however has had delayed healing of his surgical wound. He has been on a 3-week course of doxycycline History of diabetes mellitus and per patient his last A1c was 7.6. He reports compliance with his medication. Denies chills, fever or otherwise feeling of unwell at this time. X-ray back in July 2020 showed osteomyelitis of the left great toe since then he has developed open area on the plantar side of the third toe. Patient is undergoing treatment with advanced wound care as well as hyperbaric oxygen treatment to salvage his left foot. Subjective Subjective no c/o Objective Data Objective Data The base of the L great toe is healed still The plantar 3 rd toe is still open beefy tolerating the epifix well. Appointment with infectious disease next Wed here at the wound center. Vital Signs: Vital Signs Temp Pulse Resp BP 97.2 F L 78 16 179/89 H 03/25/21 11:05 03/25/21 11:05 03/25/21 11:05 03/25/21 11:05 Weight: 235 lb Body Mass Index (BMI) 31.8 Lab / Micro Data Labs: Laboratory Results - last 24 hr 03/24/21 03/25/21 03/25/21 12:08 10:09 10:28 POC Glucose 97 118 H 108 Assessment & Plan Assessment/Plan (1) Nonhealing nonsurgical wound with fat layer exposed: PLAN: continue the epifix #3 covered with wound veil and steristrips and then aquacell over top (2) Osteomyelitis of great toe of left foot: PLAN: continue the antibiotics till seen by Infectious disease (3) 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: QUALIFIERS: Laterality: left Non-pressure ulcer stage: with fat layer exposed Qualified Code(s): E08.621 - Diabetes mellitus due to underlying condition with foot ulcer; L97.522 - Non-pressure chronic ulcer of other part of left foot with fat layer exposed PLAN: continue HBO treatments (4) Diabetic foot ulcer associated with type 2 diabetes mellitus: QUALIFIERS: Diabetic foot ulcer location: toe Laterality: left Non-pressure ulcer stage: with bone involvement without evidence of necrosis Qualified Code(s): E11.621 - Type 2 diabetes mellitus with foot ulcer; L97.526 - 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 involvement without evidence of necrosis (5) Decubitus ulcer limited to breakdown of skin (stage 2): QUALIFIERS: Pressure injury location: toe Laterality: left Qualified Code(s): L89.892 - Pressure ulcer of other site, stage 2 Physical Exam Const oriented x3 General Appearance: cooperative Exam Limitations: no limitations HEENT normocephalic Head and Scalp: normal to inspection Face and Sinus: normal facial exam Nose: external nose normal General Ear: hearing grossly impaired External Ear: external ears normal Mouth: oral and palatal mucosa normal Eyes PERRL General Eye: normal appearance of both eyes Neck full ROM General: normal visual inspection Resp normal respiratory effort Effort and Inspection: able to speak in complete sentences Auscultation: clear to auscultation bilaterally Cardio regular rate and regular rhythm Palpation: normal PMI Rate: regular rate Rhythm: regular rhythm GI Auscultation: normoactive bowel sounds Palpation: soft and no hepatosplenomegaly external exam normal Back/Spine Cervical Spine: cervical ROM normal Thoracic Spine / Upper Back: normal to inspection Lumbar Spine / Lower Back: normal to inspection Extremity normal to inspection General Extremity: normal exam except as noted Skin no rashes or lesions noted Neuro oriented x3 Psych Appearance: grossly normal Speech: normal speech Thought Content: normal thought content Judgement: judgement good Debridement Note Debridement Note Post-Debridement Measurements and Additional Note: Post-Debridement Measurements/Treatment - Nurse 1 - General Ulcer Assessment Start: 03/16/21 12:07 Freq: Status: Active Protocol: WC.LOWEXT Activity Type Activity Date Activity User E-Sign Co-Sign Detail Recorded Client Recorded Date Recorded By Document 03/18/21 08:56 NEEMA [id number] 03/18/21 09:01 KR Document 03/25/21 09:22 NEEMA [id number] 03/25/21 09:25 KR 03/18/21 03/25/21 08:56 09:22 - Today's Visit Information Type of service Follow-up Visit Follow-up Visit (Physician/IT APPLICATION ADMINISTRATOR (Physician/IT APPLICATION ADMINISTRATOR ) ) Arrival Mode Ambulatory Ambulatory Patient Identification Verified (Name & Yes Yes ) Height and Weight Body Mass Index (BMI) 31.8 31.8 BMI Classification Obese Obese Vital Signs Temperature (97.8 F-99.1 F) 97.9 F 97.2 F L Temperature Source Temporal Temporal Pulse Rate (60-100) 65 89 Pulse Location Monitor Monitor Blood Pressure (90/60-120/80) 175/73 H 179/89 H Blood Pressure Mean (mm Hg) 107 119 Source Monitor Monitor Position Sitting Semi-Fowlers Blood Pressure Location Right Arm Left Arm History Since Last Visit- (Skip if this is Patient's initial visit) Have you changed medications since your No No last visit? Any new allergies or adverse reactions No No Had a fall/change in ADL's that may No No increase risk of falls Signs or symptoms of abuse and/or No No neglect since last visit Have you been in the hospital since your No No last visit? Has dressing in place as prescribed Yes Yes Has compression in place as prescribed Yes N/A Has offloadiing in place as prescribed N/A N/A Experienced any changes in pain level or No management Left Footwear Regular Shoe Regular Shoe Right Footwear Regular Shoe Regular Shoe Pain Scale: 0-10 Numeric Is Patient Pain Free? Yes Yes WC - Nurse 1 - General Ulcer Measurement Start: 03/16/21 12:07 Freq: Status: Active Protocol: Activity Type Activity Date Activity User E-Sign Co-Sign Detail Recorded Client Recorded Date Recorded By Document 03/18/21 08:56 NEEMA [id number] 03/18/21 09:01 KR Document 03/25/21 09:22 KR [id number] 03/25/21 09:25 KR 03/18/21 03/25/21 08:56 09:22 Wound Center Nurse 1 #5- L PLANTAR FOOT 1ST MET -Current Size (cm) - Length 0.1 -Current Size (cm) - Width 0.1 -Current Size (cm) - Depth 0.1 -Total Square Cm 0.01 -Exudate Amt Small -Exudate Type Serosanguineous -Wound Margin Distinct, Outline Attached -Granulation Amt None Present (0 %) -Granulation Quality Red -Necrosis Amt None Present (0 %) -Texture (Angie-wound Skin Appearance) Assessed, Scarring -Moisture (Angie-wound Skin Appearance) No Abnormality, Assessed -Temperature (Angie-wound Skin No Abnormality Appearance) (Pt Warm) -Tenderness on Palpation (Angie-wound No Skin Appearance) -Ulcer Cleansing Rinsed/ Irrigated with Saline -Foul Odor after Cleansing No -Anesthetic Used 4% Lidocaine Solution #4- L PLANTAR 3RD TOE -Current Size (cm) - Length 1.5 1.4 -Current Size (cm) - Width 1.5 1.5 -Current Size (cm) - Depth 0.3 0.1 -Total Square Cm 2.25 2.10 -Exudate Amt Medium Small -Exudate Type Serosanguineous Serosanguineous -Wound Margin Distinct, Distinct, Outline Outline Attached Attached -Granulation Amt Large (67-100%) Medium (34-66%) -Granulation Quality Red Red -Necrosis Amt None Present (0 Medium (34-66%) %) -Necrotic Tissue Type Adherent Slough -Texture (Angie-wound Skin Appearance) Assessed, Assessed, Scarring Scarring -Moisture (Angie-wound Skin Appearance) No Abnormality, No Abnormality, Assessed Assessed -Color (Angei-wound Skin Appearance) No Abnormality, No Abnormality, Assessed Assessed -Temperature (Angie-wound Skin No Abnormality No Abnormality Appearance) (Pt Warm) (Pt Warm) -Tenderness on Palpation (Angie-wound No No Skin Appearance) -Ulcer Cleansing Rinsed/ Rinsed/ Irrigated with Irrigated with Saline Saline -Foul Odor after Cleansing No No -Anesthetic Used 4% Lidocaine 5% Lidocaine Solution Gel WC - Nurse 2 - General Ulcer CM Notes Start: 03/16/21 12:07 Freq: Status: Active Protocol: Activity Type Activity Date Activity User E-Sign Co-Sign Detail Recorded Client Recorded Date Recorded By Document 03/18/21 09:23 MW [id number] 03/18/21 09:32 MW Document 03/25/21 09:34 MW [id number] 03/25/21 09:46 MW 03/18/21 03/25/21 09:23 09:34 Wound Center Nurse 2 #5- L PLANTAR FOOT 1ST MET -Time 09:24 -Correct Patient Yes -Correct Side, Site, Position Yes -Correct Procedure Yes -Procedure Performed No -Post Debridement (cm) - Length 0 -Post Debridement (cm) - Width 0 -Post Debridement (cm) - Depth 0 -Total Square (Post) (cm) 0 -Wound/Ulcer Outcome Healed- Epithelialized #4- L PLANTAR 3RD TOE -Time 09:24 09:35 -Correct Patient Yes Yes -Correct Side, Site, Position Yes Yes -Correct Procedure Yes Yes -Procedure Performed Yes Yes -Type of Procedure Debridement Debridement -Clinical Debridement Subcutaneous Subcutaneous -Tissue Removed Subcutaneous Subcutaneous -Post Debridement (cm) - Length 1.5 1.5 -Post Debridement (cm) - Width 1.6 1.8 -Post Debridement (cm) - Depth 0.1 0.1 -Total Square (Post) (cm) 2.40 2.70 -Area of Debridement (cm) - Length 1.5 1.5 -Area of Debridement (cm) - Width 1.6 1.8 -Total Square (Area) (cm) 2.40 2.70 -Tunneling No No -Undermining/Tunneling No No -Circular Undermining No No -Wound/Ulcer Outcome Not Healed Not Healed -Ulcer Cleansing Rinsed/ Rinsed/ Irrigated with Irrigated with Saline Saline -Foul Odor after Cleansing No No -Bioengineered Tissue Yes Yes -Type of Bioengineered Tissue Epifix 18mm Epifix 18mm Disc Disc -Expiration Date 11/14/25 11/14/25 -Product Lot Number [id number] -Percent Used 100 100 -Lot number of Saline Used [id number] -Bleeding Controlled with Pressure Pressure -Offloading No No -Treatment Response Procedure Procedure Tolerated Well Tolerated Well -Debridement - Subq, 1st 20sq cm No No -Apply Skin Sub - 1st 25 sq cm - Feet 1 1 -Epifix 18mm Disc 3 3 Pain Scale: 0-10 Numeric Is Patient Pain Free? Yes Yes - Nurse 3 - General Ulcer D/C NN Start: 03/16/21 12:07 Freq: Status: Active Protocol: Activity Type Activity Date Activity User E-Sign Co-Sign Detail Recorded Client Recorded Date Recorded By Document 03/18/21 09:47 NEEMA [id number] 03/18/21 09:48 KR Document 03/25/21 09:55 KR [id number] 03/25/21 09:56 KR 03/18/21 03/25/21 09:47 09:55 Wound Care Nurse 3 #4- L PLANTAR 3RD TOE -Primary Dressing Applied Aquacel Extra Aquacel Extra -Primary Dressing Covered/Secured with Dry Gauze, Dry Gauze,Dry Secured with Gauze & Roll Tape Gauze,Secured with Tape -Aquacel Extra 1 1 Pain Scale: 0-10 Numeric Is Patient Pain Free? Yes Yes WC - Visit Discharge Discharge Condition Stable Stable Ambulatory Status Ambulatory Ambulatory Transportation Private Auto Private Auto Accompanied by Wound debrided: L 3rd toe plqntar side Laterality: Left Type of Debridement: Excisional debridement Anesthesia Used: 5% Lidocaine Gel Depth: in the subcutaneous layer Percentage of wound debrided: 100 Instrument Used: 5mm curette Tissue Removed: callus strngulates around the wound Severity: Limited To Skin Breakdown Amount of bleeding with debridement: Mild Bleeding Controlled with: Compression and gauze Patient tolerated procedure: Patient tolerated procedure well
[2021-03-26 08:50] LABS: Bedside Glucose 172 mg/dL (70-110)
[2021-03-26 09:48] VITALS: BP 161/103; BP 171/82; PULSE 65; PULSE 75; RESP 18; RESP 6; TEMP 36.4; TEMP 36.5
[2021-03-26 11:11] LABS: Bedside Glucose 146 mg/dL (70-110)
--- NOTE | 2021-03-26 12:02 | HBO.PN.PCM_ITS ---
History of Present Illness Date of Service: 03/26/21 Chief Complaint: Non healing Left Great toe plantar wound and left third toe plantar wound with osteomyelitis History of Wound: Mr Hatch Was referred here by his preparation center coordinator due to nonhealing left great toe wound status post surgery. Surgery was on 25 March and per patient was uneventful however has had delayed healing of his surgical wound. He has been on a 3-week course of doxycycline History of diabetes mellitus and per patient his last A1c was 7.6. He reports compliance with his medication. Denies chills, fever or otherwise feeling of unwell at this time. X-ray back in July 2020 showed osteomyelitis of the left great toe since then he has developed open area on the plantar side of the third toe. Patient is undergoing treatment with advanced wound care as well as hyperbaric oxygen treatment to salvage his left foot. Subjective Subjective Today's hyperbaric oxygen therapy session represents the 08/13 sessions. Objective Data Objective Data Hyperbaric oxygen therapy was administered as per the facility's protocol.? Hyperbaric oxygen therapy was administered at 2 tulio for 90 minutes with no air breaks.? Patient tolerated hyperbaric oxygen therapy well, without complaints or complications.? Upon emergence from the hyperbaric chamber, the patient's vital signs remained stable.? He was discharged in good condition.? Pre- and post- blood glucose levels were documented elsewhere. Vital Signs: Vital Signs Temp Pulse Resp BP 97.7 F L 65 18 171/82 H 03/26/21 09:48 03/26/21 09:48 03/26/21 09:48 03/26/21 09:48 Weight: 235 lb Body Mass Index (BMI) 31.8 Lab / Micro Data Attestation: I reviewed the patient's lab results. Labs: Laboratory Results - last 24 hr 03/26/21 03/26/21 08:47 11:05 POC Glucose 172 H 146 H Exam Physical Exam Const alert and oriented x3 General Appearance: cooperative HEENT normocephalic and TM's normal bilaterally Head and Scalp: atraumatic Eyes PERRL Resp normal respiratory effort, no use of accessory muscles and clear to auscultation bilaterally Effort and Inspection: able to speak in complete sentences Cardio regular rate and regular rhythm Psych Appearance: grossly normal Nursing Assessment and Debridement Post-Debridement Measurements and Additional Note: Post-Debridement Measurements/Treatment WC - Nurse 1 - General Ulcer Assessment Start: 03/16/21 12:07 Freq: Status: Active Protocol: REMA Activity Type Activity Date Activity User E-Sign Co-Sign Detail Recorded Client Recorded Date Recorded By Document 03/25/21 09:22 NEEMA [id number] 03/25/21 09:25 NEEMA 03/25/21 09:22 - Today's Visit Information Type of service Follow-up Visit (Physician/ADMINISTRATIVE SERVICES SPECIALIST ) Arrival Mode Ambulatory Patient Identification Verified (Name & Yes ) Height and Weight Body Mass Index (BMI) 31.8 BMI Classification Obese Vital Signs Temperature (97.8 F-99.1 F) 97.2 F L Temperature Source Temporal Pulse Rate (60-100) 89 Pulse Location Monitor Blood Pressure (90/60-120/80) 179/89 H Blood Pressure Mean (mm Hg) 119 Source Monitor Position Semi-Fowlers Blood Pressure Location Left Arm History Since Last Visit- (Skip if this is Patient's initial visit) Have you changed medications since your No last visit? Any new allergies or adverse reactions No Had a fall/change in ADL's that may No increase risk of falls Signs or symptoms of abuse and/or No neglect since last visit Have you been in the hospital since your No last visit? Has dressing in place as prescribed Yes Has compression in place as prescribed N/A Has offloadiing in place as prescribed N/A Experienced any changes in pain level or No management Left Footwear Regular Shoe Right Footwear Regular Shoe Pain Scale: 0-10 Numeric Is Patient Pain Free? Yes - Nurse 1 - General Ulcer Measurement Start: 03/16/21 12:07 Freq: Status: Active Protocol: Activity Type Activity Date Activity User E-Sign Co-Sign Detail Recorded Client Recorded Date Recorded By Document 03/25/21 09:22 KR [id number] 03/25/21 09:25 NEEMA 03/25/21 09:22 Wound Center Nurse 1 #4- L PLANTAR 3RD TOE -Current Size (cm) - Length 1.4 -Current Size (cm) - Width 1.5 -Current Size (cm) - Depth 0.1 -Total Square Cm 2.10 -Exudate Amt Small -Exudate Type Serosanguineous -Wound Margin Distinct, Outline Attached -Granulation Amt Medium (34-66%) -Granulation Quality Red -Necrosis Amt Medium (34-66%) -Necrotic Tissue Type Adherent Slough -Texture (Angie-wound Skin Appearance) Assessed, Scarring -Moisture (Angie-wound Skin Appearance) No Abnormality, Assessed -Color (Angie-wound Skin Appearance) No Abnormality, Assessed -Temperature (Angie-wound Skin No Abnormality Appearance) (Pt Warm) -Tenderness on Palpation (Angie-wound No Skin Appearance) -Ulcer Cleansing Rinsed/ Irrigated with Saline -Foul Odor after Cleansing No -Anesthetic Used 5% Lidocaine Gel WC - Nurse 2 - General Ulcer CM Notes Start: 03/16/21 12:07 Freq: Status: Active Protocol: Activity Type Activity Date Activity User E-Sign Co-Sign Detail Recorded Client Recorded Date Recorded By Document 03/25/21 09:34 MW [id number] 03/25/21 09:46 MW 03/25/21 09:34 Wound Center Nurse 2 -Time 09:35 -Correct Patient Yes -Correct Side, Site, Position Yes -Correct Procedure Yes -Procedure Performed Yes -Type of Procedure Debridement -Clinical Debridement Subcutaneous -Tissue Removed Subcutaneous -Post Debridement (cm) - Length 1.5 -Post Debridement (cm) - Width 1.8 -Post Debridement (cm) - Depth 0.1 -Total Square (Post) (cm) 2.70 -Area of Debridement (cm) - Length 1.5 -Area of Debridement (cm) - Width 1.8 -Total Square (Area) (cm) 2.70 -Tunneling No -Undermining/Tunneling No -Circular Undermining No -Wound/Ulcer Outcome Not Healed -Ulcer Cleansing Rinsed/ Irrigated with Saline -Foul Odor after Cleansing No -Bioengineered Tissue Yes -Type of Bioengineered Tissue Epifix 18mm Disc -Expiration Date 11/14/25 -Product Lot Number [id number] -Percent Used 100 -Lot number of Saline Used [id number] -Bleeding Controlled with Pressure -Offloading No -Treatment Response Procedure Tolerated Well -Debridement - Subq, 1st 20sq cm No -Apply Skin Sub - 1st 25 sq cm - Feet 1 -Epifix 18mm Disc 3 Pain Scale: 0-10 Numeric Is Patient Pain Free? Yes WC - Nurse 3 - General Ulcer D/C NN Start: 03/16/21 12:07 Freq: Status: Active Protocol: Activity Type Activity Date Activity User E-Sign Co-Sign Detail Recorded Client Recorded Date Recorded By Document 03/25/21 09:55 NEEMA [id number] 03/25/21 09:56 NEEMA 03/25/21 09:55 Wound Care Nurse 3 #4- L PLANTAR 3RD TOE -Primary Dressing Applied Aquacel Extra -Primary Dressing Covered/Secured with Dry Gauze,Dry Gauze & Roll Gauze,Secured with Tape -Aquacel Extra 1 Pain Scale: 0-10 Numeric Is Patient Pain Free? Yes WC - Visit Discharge Discharge Condition Stable Ambulatory Status Ambulatory Transportation Private Auto Assessment & Plan Assessment/Plan (1) Osteomyelitis of great toe of left foot: (2) Nonhealing nonsurgical wound with fat layer exposed: (3) 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: QUALIFIERS: Laterality: left Non-pressure ulcer stage: with fat layer exposed Qualified Code(s): E08.621 - Diabetes mellitus due to underlying condition with foot ulcer; L97.522 - Non-pressure chronic ulcer of other part of left foot with fat layer exposed (4) Diabetic foot ulcer associated with type 2 diabetes mellitus: QUALIFIERS: Diabetic foot ulcer location: toe Laterality: left Non-pressure ulcer stage: with bone involvement without evidence of necrosis Qualified Code(s): E11.621 - Type 2 diabetes mellitus with foot ulcer; L97.526 - 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 involvement without evidence of necrosis (5) Decubitus ulcer limited to breakdown of skin (stage 2): QUALIFIERS: Pressure injury location: toe Laterality: left Qualified Code(s): L89.892 - Pressure ulcer of other site, stage 2 (6) Non-healing surgical wound: QUALIFIERS: Encounter type: subsequent encounter Qualified Code(s): T81.89XD - Other complications of procedures, not elsewhere classified, subsequent encounter (7) Acute osteomyelitis involving ankle and foot: (8) Chronic osteomyelitis involving ankle and foot: QUALIFIERS: Laterality: left Qualified Code(s): M86.672 - Other chronic osteomyelitis, left ankle and foot PLAN: The patient appears to be tolerating hyperbaric oxygen therapy well, which will be continued as per the patient's medical plan. Charges/Coding Addendum Addendum: 96696 HBO therapy CHART COMPUTER supervision.
[2021-03-27 10:00] LABS: Bedside Glucose 156 mg/dL (70-110)
[2021-03-27 10:35] VITALS: BP 165/71; BP 169/90; PULSE 69; PULSE 71; RESP 16; RESP 18; TEMP 36.6; TEMP 36.7
[2021-03-27 12:20] LABS: Bedside Glucose 133 mg/dL (70-110)
--- NOTE | 2021-03-27 12:53 | PCM.HBO.PN ---
History of Present Illness Date of Service: 03/30/21 Chief Complaint: Non healing Left Great toe plantar wound and left third toe plantar wound with osteomyelitis History of Wound: Mr Hatch Was referred here by his [employer] operator due to nonhealing left great toe wound status post surgery. Surgery was on 25 March and per patient was uneventful however has had delayed healing of his surgical wound. He has been on a 3-week course of doxycycline History of diabetes mellitus and per patient his last A1c was 7.6. He reports compliance with his medication. Denies chills, fever or otherwise feeling of unwell at this time. X-ray back in July 2020 showed osteomyelitis of the left great toe since then he has developed open area on the plantar side of the third toe. Patient is undergoing treatment with advanced wound care as well as hyperbaric oxygen treatment to salvage his left foot. Subjective Subjective Progress: Today is the 10th treatment of hyperbaric oxygen therapy. The patient is scheduled for 30 treatments total. Tolerance of hyperbaric oxygen therapy: Hyperbaric oxygen treatment was provided as per the facility's protocol at 2.0 CLAY in 100% oxygen for 90 minutes without air breaks. The patient tolerated hyperbaric oxygen well, without complications or complaints. Upon emergence of the hyperbaric chamber, the patient's vital signs remained stable. Objective Data Objective Data Vital Signs: Vital Signs Temp Pulse Resp BP 98.0 F 69 16 165/71 H 03/27/21 10:35 03/27/21 10:35 03/27/21 10:35 03/27/21 10:35 Weight: 106.594 kg Body Mass Index (BMI) 31.8 Exam Physical Exam Const alert, oriented x3 and no apparent distress General Appearance: cooperative Psych mental status grossly normal and affect normal Appearance: grossly normal and appropriate Assessment & Plan Assessment/Plan (1) Osteomyelitis of great toe of left foot: (2) 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: QUALIFIERS: Laterality: left Non-pressure ulcer stage: with fat layer exposed Qualified Code(s): E08.621 - Diabetes mellitus due to underlying condition with foot ulcer; L97.522 - Non-pressure chronic ulcer of other part of left foot with fat layer exposed (3) Diabetic foot ulcer associated with type 2 diabetes mellitus: QUALIFIERS: Diabetic foot ulcer location: toe Laterality: left Non-pressure ulcer stage: with bone involvement without evidence of necrosis Qualified Code(s): E11.621 - Type 2 diabetes mellitus with foot ulcer; L97.526 - 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 involvement without evidence of necrosis PLAN: PLAN: Hyperbaric oxygen treatment which was administered as per the facility's per protocol at 90 tulio for 2 hours. Hyperbaric oxygen treatment was well-tolerated. Upon emerging from the hyperbaric oxygen chamber, his vitals remained stable and he was discharged in stable condition. He will continue hyperbaric oxygen treatment as per facility's protocol. The patient appears to be tolerating hyperbaric oxygen therapy well, which will be continued as per his comprehensive medical treatment plan.
[2021-03-31 10:05] LABS: Bedside Glucose 191 mg/dL (70-110)
[2021-03-31 11:32] VITALS: BP 149/75; BP 155/79; PULSE 74; PULSE 75; RESP 16; TEMP 36.7; TEMP 36.8
[2021-03-31 12:25] LABS: Bedside Glucose 176 mg/dL (70-110)
--- NOTE | 2021-03-31 13:12 | PCM.HBO.PN ---
History of Present Illness Date of Service: 03/31/21 Chief Complaint: Non-healing left great toe plantar wound and left third toe plantar wound with osteomyelitis History of Wound: Mr Hatch Was referred here by his install technician due to nonhealing left great toe wound status post surgery. Surgery was on 25 March and per patient was uneventful however has had delayed healing of his surgical wound. He has been on a 3-week course of doxycycline History of diabetes mellitus and per patient his last A1c was 7.6. He reports compliance with his medication. Denies chills, fever or otherwise feeling of unwell at this time. X-ray back in July 2020 showed osteomyelitis of the left great toe since then he has developed open area on the plantar side of the third toe. Patient is undergoing treatment with advanced wound care as well as hyperbaric oxygen treatment to salvage his left foot. Subjective Subjective Today's hyperbaric oxygen therapy session represents the 11th of such session of the planned 30 such sessions. Hyperbaric oxygen therapy was administered as per the facility's protocol. Hyperbaric oxygen therapy was administered at 2 tulio for 90 minutes with no air breaks. The patient tolerated hyperbaric oxygen therapy well, without complaints or complications. Upon emergence from the hyperbaric chamber, the patient's vital signs remained stable. The patient was discharged in good condition. Pre-and post?hyperbaric oxygen therapy blood glucose levels were documented elsewhere. Objective Data Objective Data Vital Signs: Vital Signs Temp Pulse Resp BP 98.2 F 75 16 149/75 H 03/31/21 11:32 03/31/21 11:32 03/31/21 11:32 03/31/21 11:32 Weight: 235 lb Body Mass Index (BMI) 31.8 Lab / Micro Data Labs: Laboratory Results - last 24 hr 03/31/21 03/31/21 10:00 12:17 POC Glucose 191 H 176 H Exam Physical Exam Const alert, oriented x3, no apparent distress and well nourished General Appearance: cooperative and well developed HEENT normocephalic Head and Scalp: atraumatic Eyes PERRL and EOMs intact bilaterally Resp normal respiratory effort and no use of accessory muscles Psych affect normal Appearance: grossly normal Assessment & Plan Assessment/Plan (1) Chronic osteomyelitis involving ankle and foot: QUALIFIERS: Laterality: left Qualified Code(s): M86.672 - Other chronic osteomyelitis, left ankle and foot (2) Osteomyelitis of great toe of left foot: (3) Nonhealing nonsurgical wound with fat layer exposed: (4) 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: QUALIFIERS: Laterality: left Non-pressure ulcer stage: with fat layer exposed Qualified Code(s): E08.621 - Diabetes mellitus due to underlying condition with foot ulcer; L97.522 - Non-pressure chronic ulcer of other part of left foot with fat layer exposed (5) Diabetic foot ulcer associated with type 2 diabetes mellitus: QUALIFIERS: Diabetic foot ulcer location: toe Laterality: left Non-pressure ulcer stage: with bone involvement without evidence of necrosis Qualified Code(s): E11.621 - Type 2 diabetes mellitus with foot ulcer; L97.526 - 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 involvement without evidence of necrosis (6) Non-healing surgical wound: QUALIFIERS: Encounter type: subsequent encounter Qualified Code(s): T81.89XD - Other complications of procedures, not elsewhere classified, subsequent encounter PLAN: The patient appears to be tolerating hyperbaric oxygen therapy well, which will be continued as per the patient's medical plan.
[2021-04-01 09:28] VITALS: BP 163/87; PULSE 82; TEMP 36.5; BMI 31.8
[2021-04-01 11:10] VITALS: BP 144/72; BP 163/87; PULSE 66; PULSE 82; RESP 16; TEMP 36.3; TEMP 36.5
[2021-04-01 11:37] LABS: Bedside Glucose 152 mg/dL (70-110)
--- NOTE | 2021-04-01 12:14 | PN.PCM_ITS ---
History of Present Illness Date of Service: 04/01/21 Chief Complaint: Non-healing left great toe plantar wound and left third toe plantar wound with osteomyelitis History of Wound: Mr Hatch Was referred here by his analysis director due to nonhealing left great toe wound status post surgery. Surgery was on 25 March and per patient was uneventful however has had delayed healing of his surgical wound. He has been on a 3-week course of doxycycline History of diabetes mellitus and per patient his last A1c was 7.6. He reports compliance with his medication. Denies chills, fever or otherwise feeling of unwell at this time. X-ray back in July 2020 showed osteomyelitis of the left great toe since then he has developed open area on the plantar side of the third toe. Patient is undergoing treatment with advanced wound care as well as hyperbaric oxygen treatment to salvage his left foot. Subjective Subjective feeling better getting better control of BS Objective Data Objective Data L 3rd toe healing well still using epifix no sign of infection .Sees the infectious disease Dr today Vital Signs: Vital Signs Temp Pulse Resp BP 97.7 F L 82 16 163/87 H 04/01/21 11:10 04/01/21 11:10 04/01/21 11:10 04/01/21 11:10 Weight: 235 lb Body Mass Index (BMI) 31.8 Lab / Micro Data Labs: Laboratory Results - last 24 hr 03/31/21 04/01/21 12:17 10:16 POC Glucose 176 H 152 H Physical Exam Const oriented x3 General Appearance: cooperative Exam Limitations: no limitations HEENT normocephalic Head and Scalp: normal to inspection Face and Sinus: normal facial exam Nose: external nose normal General Ear: hearing grossly impaired External Ear: external ears normal Mouth: oral and palatal mucosa normal Eyes PERRL General Eye: normal appearance of both eyes Neck full ROM General: normal visual inspection Resp normal respiratory effort Effort and Inspection: able to speak in complete sentences Auscultation: clear to auscultation bilaterally Cardio regular rate and regular rhythm Palpation: normal PMI Rate: regular rate Rhythm: regular rhythm GI Auscultation: normoactive bowel sounds Palpation: soft and no hepatosplenomegaly external exam normal Back/Spine Cervical Spine: cervical ROM normal Thoracic Spine / Upper Back: normal to inspection Lumbar Spine / Lower Back: normal to inspection Extremity normal to inspection General Extremity: normal exam except as noted Skin no rashes or lesions noted Neuro oriented x3 Psych Appearance: grossly normal Speech: normal speech Thought Content: normal thought content Judgement: judgement good Debridement Note Debridement Note Post-Debridement Measurements and Additional Note: Post-Debridement Measurements/Treatment - Nurse 1 - General Ulcer Assessment Start: 03/16/21 12:07 Freq: Status: Active Protocol: JONNY.[email or web address] Activity Type Activity Date Activity User E-Sign Co-Sign Detail Recorded Client Recorded Date Recorded By Document 03/18/21 08:56 KR [id number] 03/18/21 09:01 KR Document 03/25/21 09:22 KR [id number] 03/25/21 09:25 KR Document 04/01/21 09:28 KR [id number] 04/01/21 09:30 KR 03/18/21 03/25/21 04/01/21 08:56 09:22 09:28 - Today's Visit Information Type of service Follow-up Visit Follow-up Visit Follow-up Visit (Physician/SUPERVISOR ACCOUNTS RECEIVABLE (Physician/SUPERVISOR ACCOUNTS RECEIVABLE (Physician/SUPERVISOR ACCOUNTS RECEIVABLE ) ) ) Arrival Mode Ambulatory Ambulatory Ambulatory Patient Identification Verified (Name & Yes Yes Yes ) Finger Stick Blood Sugar(mg/dl) (if 131 indicated): Blood Sugar Stated by Patient Height and Weight Body Mass Index (BMI) 31.8 31.8 31.8 BMI Classification Obese Obese Obese Vital Signs Temperature (97.8 F-99.1 F) 97.9 F 97.2 F L 97.7 F L Temperature Source Temporal Temporal Temporal Pulse Rate (60-100) 65 89 82 Pulse Location Monitor Monitor Monitor Blood Pressure (90/60-120/80) 175/73 H 179/89 H 163/87 H Blood Pressure Mean (mm Hg) 107 119 112 Source Monitor Monitor Monitor Position Sitting Semi-Fowlers Semi-Fowlers Blood Pressure Location Right Arm Left Arm Right Arm History Since Last Visit- (Skip if this is Patient's initial visit) Have you changed medications since your No No No last visit? Any new allergies or adverse reactions No No No Had a fall/change in ADL's that may No No No increase risk of falls Signs or symptoms of abuse and/or No No No neglect since last visit Have you been in the hospital since your No No No last visit? Has dressing in place as prescribed Yes Yes Yes Has compression in place as prescribed Yes N/A N/A Has offloadiing in place as prescribed N/A N/A N/A Experienced any changes in pain level or No No management Left Footwear Regular Shoe Regular Shoe Regular Shoe Right Footwear Regular Shoe Regular Shoe Regular Shoe Pain Scale: 0-10 Numeric Is Patient Pain Free? Yes Yes Yes WC - Nurse 1 - General Ulcer Measurement Start: 03/16/21 12:07 Freq: Status: Active Protocol: Activity Type Activity Date Activity User E-Sign Co-Sign Detail Recorded Client Recorded Date Recorded By Document 03/18/21 08:56 KR [id number] 03/18/21 09:01 KR Document 03/25/21 09:22 KR [id number] 03/25/21 09:25 KR Document 04/01/21 09:28 KR [id number] 04/01/21 09:30 KR 03/18/21 03/25/21 04/01/21 08:56 09:22 09:28 Wound Center Nurse 1 #5- L PLANTAR FOOT 1ST MET -Current Size (cm) - Length 0.1 -Current Size (cm) - Width 0.1 -Current Size (cm) - Depth 0.1 -Total Square Cm 0.01 -Exudate Amt Small -Exudate Type Serosanguineous -Wound Margin Distinct, Outline Attached -Granulation Amt None Present (0 %) -Granulation Quality Red -Necrosis Amt None Present (0 %) -Texture (Angie-wound Skin Appearance) Assessed, Scarring -Moisture (Angie-wound Skin Appearance) No Abnormality, Assessed -Temperature (Angie-wound Skin No Abnormality Appearance) (Pt Warm) -Tenderness on Palpation (Angie-wound No Skin Appearance) -Ulcer Cleansing Rinsed/ Irrigated with Saline -Foul Odor after Cleansing No -Anesthetic Used 4% Lidocaine Solution #4- L PLANTAR 3RD TOE -Current Size (cm) - Length 1.5 1.4 1.5 -Current Size (cm) - Width 1.5 1.5 1.6 -Current Size (cm) - Depth 0.3 0.1 0.1 -Total Square Cm 2.25 2.10 2.40 -Exudate Amt Medium Small Small -Exudate Type Serosanguineous Serosanguineous Serosanguineous -Wound Margin Distinct, Distinct, Distinct, Outline Outline Outline Attached Attached Attached -Granulation Amt Large (67-100%) Medium (34-66%) Large (67-100%) -Granulation Quality Red Red Red -Slough/Fibrin No -Necrosis Amt None Present (0 Medium (34-66%) Small (1-33%) %) -Necrotic Tissue Type Adherent Slough Adherent Slough -Texture (Angie-wound Skin Appearance) Assessed, Assessed, Assessed, Scarring Scarring Scarring -Moisture (Angie-wound Skin Appearance) No Abnormality, No Abnormality, No Abnormality, Assessed Assessed Assessed -Color (Angie-wound Skin Appearance) No Abnormality, No Abnormality, No Abnormality, Assessed Assessed Assessed -Temperature (Angie-wound Skin No Abnormality No Abnormality No Abnormality Appearance) (Pt Warm) (Pt Warm) (Pt Warm) -Tenderness on Palpation (Angie-wound No No No Skin Appearance) -Ulcer Cleansing Rinsed/ Rinsed/ Rinsed/ Irrigated with Irrigated with Irrigated with Saline Saline Saline -Foul Odor after Cleansing No No No -Anesthetic Used 4% Lidocaine 5% Lidocaine 5% Lidocaine Solution Gel Gel WC - Nurse 2 - General Ulcer CM Notes Start: 03/16/21 12:07 Freq: Status: Active Protocol: Activity Type Activity Date Activity User E-Sign Co-Sign Detail Recorded Client Recorded Date Recorded By Document 03/18/21 09:23 MW [id number] 03/18/21 09:32 MW Document 03/25/21 09:34 MW [id number] 03/25/21 09:46 MW Document 04/01/21 09:44 MW [id number] 04/01/21 09:56 MW 03/18/21 03/25/21 04/01/21 09:23 09:34 09:44 Wound Center Nurse 2 #5- L PLANTAR FOOT 1ST MET -Time 09:24 -Correct Patient Yes -Correct Side, Site, Position Yes -Correct Procedure Yes -Procedure Performed No -Post Debridement (cm) - Length 0 -Post Debridement (cm) - Width 0 -Post Debridement (cm) - Depth 0 -Total Square (Post) (cm) 0 -Wound/Ulcer Outcome Healed- Epithelialized #4- L PLANTAR 3RD TOE -Time 09:24 09:35 09:44 -Correct Patient Yes Yes Yes -Correct Side, Site, Position Yes Yes Yes -Correct Procedure Yes Yes Yes -Procedure Performed Yes Yes Yes -Type of Procedure Debridement Debridement Debridement -Clinical Debridement Subcutaneous Subcutaneous Subcutaneous -Tissue Removed Subcutaneous Subcutaneous Subcutaneous -Post Debridement (cm) - Length 1.5 1.5 1.5 -Post Debridement (cm) - Width 1.6 1.8 1.5 -Post Debridement (cm) - Depth 0.1 0.1 0.1 -Total Square (Post) (cm) 2.40 2.70 2.25 -Area of Debridement (cm) - Length 1.5 1.5 1.5 -Area of Debridement (cm) - Width 1.6 1.8 1.5 -Total Square (Area) (cm) 2.40 2.70 2.25 -Tunneling No No No -Undermining/Tunneling No No No -Circular Undermining No No No -Wound/Ulcer Outcome Not Healed Not Healed Not Healed -Ulcer Cleansing Rinsed/ Rinsed/ Rinsed/ Irrigated with Irrigated with Irrigated with Saline Saline Saline -Foul Odor after Cleansing No No No -Bioengineered Tissue Yes Yes Yes -Type of Bioengineered Tissue Epifix 18mm Epifix 18mm Epifix 18mm Disc Disc Disc -Expiration Date 11/14/25 11/14/25 11/14/25 -Product Lot Number [id number] -Percent Used 100 100 100 -Lot number of Saline Used [id number] -Bleeding Controlled with Pressure Pressure Pressure -Offloading No No No -Treatment Response Procedure Procedure Procedure Tolerated Well Tolerated Well Tolerated Well -Debridement - Subq, 1st 20sq cm No No No -Apply Skin Sub - 1st 25 sq cm - Feet 1 1 1 -Epifix 18mm Disc 3 3 3 Pain Scale: 0-10 Numeric Is Patient Pain Free? Yes Yes Yes - Nurse 3 - General Ulcer D/C NN Start: 03/16/21 12:07 Freq: Status: Active Protocol: Activity Type Activity Date Activity User E-Sign Co-Sign Detail Recorded Client Recorded Date Recorded By Document 03/18/21 09:47 NEEMA [id number] 03/18/21 09:48 KR Document 03/25/21 09:55 KR [id number] 03/25/21 09:56 KR Document 04/01/21 10:01 KR [id number] 04/01/21 10:01 KR 03/18/21 03/25/21 04/01/21 09:47 09:55 10:01 Wound Care Nurse 3 #4- L PLANTAR 3RD TOE -Ulcer Cleansing Rinsed/ Irrigated with Saline -Primary Dressing Applied Aquacel Extra Aquacel Extra Aquacel Extra -Primary Dressing Covered/Secured with Dry Gauze, Dry Gauze,Dry Dry Gauze,Dry Secured with Gauze & Roll Gauze & Roll Tape Gauze,Secured Gauze,Secured with Tape with Tape -Aquacel Extra 1 1 1 Pain Scale: 0-10 Numeric Is Patient Pain Free? Yes Yes Yes WC - Visit Discharge Discharge Condition Stable Stable Stable Ambulatory Status Ambulatory Ambulatory Ambulatory Transportation Private Auto Private Auto Private Auto Accompanied by Wound debrided: L 3 rd toe plantar side Laterality: Left Type of Debridement: Excisional debridement Anesthesia Used: 5% Lidocaine Gel Depth: Down to and including healthy tissue Percentage of wound debrided: 100 Instrument Used: 5mm curette Tissue Removed: fibrin Severity: Limited To Skin Breakdown Amount of bleeding with debridement: Mild Bleeding Controlled with: Pressure Patient tolerated procedure: Patient tolerated procedure well
[2021-04-01 12:35] LABS: Bedside Glucose 221 mg/dL (70-110)
--- NOTE | 2021-04-01 13:30 | HBO.PN.PCM_ITS ---
History of Present Illness Date of Service: 04/01/21 Chief Complaint: Non-healing left great toe plantar wound and left third toe plantar wound with osteomyelitis History of Wound: Mr Hatch Was referred here by his care director due to nonhealing left great toe wound status post surgery. Surgery was on 25 March and per patient was uneventful however has had delayed healing of his surgical wound. He has been on a 3-week course of doxycycline History of diabetes mellitus and per patient his last A1c was 7.6. He reports compliance with his medication. Denies chills, fever or otherwise feeling of unwell at this time. X-ray back in July 2020 showed osteomyelitis of the left great toe since then he has developed open area on the plantar side of the third toe. Patient is undergoing treatment with advanced wound care as well as hyperbaric oxygen treatment to salvage his left foot. Objective Data Objective Data finished his HBO treatment # 6 Tolerated well BS controlled Vital Signs: Vital Signs Temp Pulse Resp BP 97.7 F L 82 16 163/87 H 04/01/21 11:10 04/01/21 11:10 04/01/21 11:10 04/01/21 11:10 Weight: 235 lb Body Mass Index (BMI) 31.8 Lab / Micro Data Attestation: I reviewed the patient's lab results. Labs: Laboratory Results - last 24 hr 04/01/21 04/01/21 10:16 12:31 POC Glucose 152 H 221 H Exam Nursing Assessment and Debridement Post-Debridement Measurements and Additional Note: Post-Debridement Measurement s/Treatment WC - Nurse 1 - General Ulcer Assessment Start: 03/16/21 12:07 Freq: Status: Active Protocol: JONNY.LIDA Activity Type Activity Date Activity User E-Sign Co-Sign Detail Recorded Client Recorded Date Recorded By Document 04/01/21 09:28 KR [id number] 04/01/21 09:30 KR 04/01/21 09:28 WC - Today's Visit Information Type of service Follow-up Visit (Physician/SALES MANAGEMENT TRAINEE ) Arrival Mode Ambulatory Patient Identification Verified (Name & Yes ) Finger Stick Blood Sugar(mg/dl) (if 131 indicated): Blood Sugar Stated by Patient Height and Weight Body Mass Index (BMI) 31.8 BMI Classification Obese Vital Signs Temperature (97.8 F-99.1 F) 97.7 F L Temperature Source Temporal Pulse Rate (60-100) 82 Pulse Location Monitor Blood Pressure (90/60-120/80) 163/87 H Blood Pressure Mean (mm Hg) 112 Source Monitor Position Semi-Fowlers Blood Pressure Location Right Arm History Since Last Visit- (Skip if this is Patient's initial visit) Have you changed medications since your No last visit? Any new allergies or adverse reactions No Had a fall/change in ADL's that may No increase risk of falls Signs or symptoms of abuse and/or No neglect since last visit Have you been in the hospital since your No last visit? Has dressing in place as prescribed Yes Has compression in place as prescribed N/A Has offloadiing in place as prescribed N/A Experienced any changes in pain level or No management Left Footwear Regular Shoe Right Footwear Regular Shoe Pain Scale: 0-10 Numeric Is Patient Pain Free? Yes WC - Nurse 1 - General Ulcer Measurement Start: 03/16/21 12:07 Freq: Status: Active Protocol: Activity Type Activity Date Activity User E-Sign Co-Sign Detail Recorded Client Recorded Date Recorded By Document 04/01/21 09:28 NEEMA [id number] 04/01/21 09:30 NEEMA 04/01/21 09:28 Wound Center Nurse 1 #4- L PLANTAR 3RD TOE -Current Size (cm) - Length 1.5 -Current Size (cm) - Width 1.6 -Current Size (cm) - Depth 0.1 -Total Square Cm 2.40 -Exudate Amt Small -Exudate Type Serosanguineous -Wound Margin Distinct, Outline Attached -Granulation Amt Large (67-100%) -Granulation Quality Red -Slough/Fibrin No -Necrosis Amt Small (1-33%) -Necrotic Tissue Type Adherent Slough -Texture (Angie-wound Skin Appearance) Assessed, Scarring -Moisture (Angie-wound Skin Appearance) No Abnormality, Assessed -Color (Angie-wound Skin Appearance) No Abnormality, Assessed -Temperature (Angie-wound Skin No Abnormality Appearance) (Pt Warm) -Tenderness on Palpation (Angie-wound No Skin Appearance) -Ulcer Cleansing Rinsed/ Irrigated with Saline -Foul Odor after Cleansing No -Anesthetic Used 5% Lidocaine Gel WC - Nurse 2 - General Ulcer CM Notes Start: 03/16/21 12:07 Freq: Status: Active Protocol: Activity Type Activity Date Activity User E-Sign Co-Sign Detail Recorded Client Recorded Date Recorded By Document 04/01/21 09:44 MW [id number] 04/01/21 09:56 MW 04/01/21 09:44 Wound Center Nurse 2 -Time 09:44 -Correct Patient Yes -Correct Side, Site, Position Yes -Correct Procedure Yes -Procedure Performed Yes -Type of Procedure Debridement -Clinical Debridement Subcutaneous -Tissue Removed Subcutaneous -Post Debridement (cm) - Length 1.5 -Post Debridement (cm) - Width 1.5 -Post Debridement (cm) - Depth 0.1 -Total Square (Post) (cm) 2.25 -Area of Debridement (cm) - Length 1.5 -Area of Debridement (cm) - Width 1.5 -Total Square (Area) (cm) 2.25 -Tunneling No -Undermining/Tunneling No -Circular Undermining No -Wound/Ulcer Outcome Not Healed -Ulcer Cleansing Rinsed/ Irrigated with Saline -Foul Odor after Cleansing No -Bioengineered Tissue Yes -Type of Bioengineered Tissue Epifix 18mm Disc -Expiration Date 11/14/25 -Product Lot Number [id number] -Percent Used 100 -Lot number of Saline Used [id number] -Bleeding Controlled with Pressure -Offloading No -Treatment Response Procedure Tolerated Well -Debridement - Subq, 1st 20sq cm No -Apply Skin Sub - 1st 25 sq cm - Feet 1 -Epifix 18mm Disc 3 Pain Scale: 0-10 Numeric Is Patient Pain Free? Yes - Nurse 3 - General Ulcer D/C NN Start: 03/16/21 12:07 Freq: Status: Active Protocol: Activity Type Activity Date Activity User E-Sign Co-Sign Detail Recorded Client Recorded Date Recorded By Document 04/01/21 10:01 KR [id number] 04/01/21 10:01 04/01/21 10:01 Wound Care Nurse 3 #4- L PLANTAR 3RD TOE -Ulcer Cleansing Rinsed/ Irrigated with Saline -Primary Dressing Applied Aquacel Extra -Primary Dressing Covered/Secured with Dry Gauze,Dry Gauze & Roll Gauze,Secured with Tape -Aquacel Extra 1 Pain Scale: 0-10 Numeric Is Patient Pain Free? Yes WC - Visit Discharge Discharge Condition Stable Ambulatory Status Ambulatory Transportation Private Auto
[2021-04-02 09:46] LABS: Bedside Glucose 212 mg/dL (70-110)
[2021-04-02 12:05] LABS: Bedside Glucose 150 mg/dL (70-110)
[2021-04-02 12:10] VITALS: BP 138/66; BP 153/84; PULSE 75; PULSE 79; RESP 16; RESP 17; TEMP 36.1; TEMP 36.6
--- NOTE | 2021-04-02 16:40 | PCM.HBO.PN ---
History of Present Illness Date of Service: 04/02/21 Chief Complaint: Non-healing left great toe plantar wound and left third toe plantar wound with osteomyelitis History of Wound: Mr Hatch Was referred here by his stemming machine operator due to nonhealing left great toe wound status post surgery. Surgery was on 25 March and per patient was uneventful however has had delayed healing of his surgical wound. He has been on a 3-week course of doxycycline History of diabetes mellitus and per patient his last A1c was 7.6. He reports compliance with his medication. Denies chills, fever or otherwise feeling of unwell at this time. X-ray back in July 2020 showed osteomyelitis of the left great toe since then he has developed open area on the plantar side of the third toe. Patient is undergoing treatment with advanced wound care as well as hyperbaric oxygen treatment to salvage his left foot. Subjective Subjective Today's hyperbaric oxygen therapy session represents the 12th of such session of the planned 30 such sessions. Hyperbaric oxygen therapy was administered as per the facility's protocol. Hyperbaric oxygen therapy was administered at 2 tulio for 90 minutes with no air breaks. The patient tolerated hyperbaric oxygen therapy well, without complaints or complications. Upon emergence from the hyperbaric chamber, the patient's vital signs remained stable. The patient was discharged in good condition. Pre-and post?hyperbaric oxygen therapy blood glucose levels were documented elsewhere. Objective Data Objective Data Vital Signs: Vital Signs Temp Pulse Resp BP 97 F L 79 17 138/66 H 04/02/21 12:10 04/02/21 12:10 04/02/21 12:10 04/02/21 12:10 Weight: 235 lb Body Mass Index (BMI) 31.8 Lab / Micro Data Labs: Laboratory Results - last 24 hr 04/02/21 04/02/21 09:43 11:58 POC Glucose 212 H 150 H Exam Physical Exam Const alert, oriented x3 and no apparent distress General Appearance: cooperative and comfortable HEENT normocephalic, hearing grossly normal bilaterally and TM's normal bilaterally Eyes EOMs intact bilaterally Neck full ROM and supple General: normal visual inspection Resp normal respiratory effort Effort and Inspection: able to speak in complete sentences Cardio regular rate Neuro oriented x3, CN's II-XII intact bilaterally and moves all extremities Psych mental status grossly normal Appearance: grossly normal Nursing Assessment and Debridement Post-Debridement Measurements and Additional Note: Post-Debridement Measurements/Treatment JONNY - Nurse 1 - General Ulcer Assessment Start: 03/16/21 12:07 Freq: Status: Active Protocol: REMA Activity Type Activity Date Activity User E-Sign Co-Sign Detail Recorded Client Recorded Date Recorded By Document 04/01/21 09:28 NEEMA [id number] 04/01/21 09:30 NEEMA 04/01/21 09:28 WC - Today's Visit Information Type of service Follow-up Visit (Physician/RN CHILD ) Arrival Mode Ambulatory Patient Identification Verified (Name & Yes ) Finger Stick Blood Sugar(mg/dl) (if 131 indicated): Blood Sugar Stated by Patient Height and Weight Body Mass Index (BMI) 31.8 BMI Classification Obese Vital Signs Temperature (97.8 F-99.1 F) 97.7 F L Temperature Source Temporal Pulse Rate (60-100) 82 Pulse Location Monitor Blood Pressure (90/60-120/80) 163/87 H Blood Pressure Mean (mm Hg) 112 Source Monitor Position Semi-Fowlers Blood Pressure Location Right Arm History Since Last Visit- (Skip if this is Patient's initial visit) Have you changed medications since your No last visit? Any new allergies or adverse reactions No Had a fall/change in ADL's that may No increase risk of falls Signs or symptoms of abuse and/or No neglect since last visit Have you been in the hospital since your No last visit? Has dressing in place as prescribed Yes Has compression in place as prescribed N/A Has offloadiing in place as prescribed N/A Experienced any changes in pain level or No management Left Footwear Regular Shoe Right Footwear Regular Shoe Pain Scale: 0-10 Numeric Is Patient Pain Free? Yes - Nurse 1 - General Ulcer Measurement Start: 03/16/21 12:07 Freq: Status: Active Protocol: Activity Type Activity Date Activity User E-Sign Co-Sign Detail Recorded Client Recorded Date Recorded By Document 04/01/21 09:28 NEEMA [id number] 04/01/21 09:30 NEEMA 04/01/21 09:28 Wound Center Nurse 1 #4- L PLANTAR 3RD TOE -Current Size (cm) - Length 1.5 -Current Size (cm) - Width 1.6 -Current Size (cm) - Depth 0.1 -Total Square Cm 2.40 -Exudate Amt Small -Exudate Type Serosanguineous -Wound Margin Distinct, Outline Attached -Granulation Amt Large (67-100%) -Granulation Quality Red -Slough/Fibrin No -Necrosis Amt Small (1-33%) -Necrotic Tissue Type Adherent Slough -Texture (Angie-wound Skin Appearance) Assessed, Scarring -Moisture (Angie-wound Skin Appearance) No Abnormality, Assessed -Color (Angie-wound Skin Appearance) No Abnormality, Assessed -Temperature (Angie-wound Skin No Abnormality Appearance) (Pt Warm) -Tenderness on Palpation (Angie-wound No Skin Appearance) -Ulcer Cleansing Rinsed/ Irrigated with Saline -Foul Odor after Cleansing No -Anesthetic Used 5% Lidocaine Gel WC - Nurse 2 - General Ulcer CM Notes Start: 03/16/21 12:07 Freq: Status: Active Protocol: Activity Type Activity Date Activity User E-Sign Co-Sign Detail Recorded Client Recorded Date Recorded By Document 04/01/21 09:44 MW [id number] 04/01/21 09:56 MW 04/01/21 09:44 Wound Center Nurse 2 -Time 09:44 -Correct Patient Yes -Correct Side, Site, Position Yes -Correct Procedure Yes -Procedure Performed Yes -Type of Procedure Debridement -Clinical Debridement Subcutaneous -Tissue Removed Subcutaneous -Post Debridement (cm) - Length 1.5 -Post Debridement (cm) - Width 1.5 -Post Debridement (cm) - Depth 0.1 -Total Square (Post) (cm) 2.25 -Area of Debridement (cm) - Length 1.5 -Area of Debridement (cm) - Width 1.5 -Total Square (Area) (cm) 2.25 -Tunneling No -Undermining/Tunneling No -Circular Undermining No -Wound/Ulcer Outcome Not Healed -Ulcer Cleansing Rinsed/ Irrigated with Saline -Foul Odor after Cleansing No -Bioengineered Tissue Yes -Type of Bioengineered Tissue Epifix 18mm Disc -Expiration Date 11/14/25 -Product Lot Number [id number] -Percent Used 100 -Lot number of Saline Used [id number] -Bleeding Controlled with Pressure -Offloading No -Treatment Response Procedure Tolerated Well -Debridement - Subq, 1st 20sq cm No -Apply Skin Sub - 1st 25 sq cm - Feet 1 -Epifix 18mm Disc 3 Pain Scale: 0-10 Numeric Is Patient Pain Free? Yes - Nurse 3 - General Ulcer D/C NN Start: 03/16/21 12:07 Freq: Status: Active Protocol: Activity Type Activity Date Activity User E-Sign Co-Sign Detail Recorded Client Recorded Date Recorded By Document 04/01/21 10:01 NEEMA [id number] 04/01/21 10:01 NEEMA 04/01/21 10:01 Wound Care Nurse 3 #4- L PLANTAR 3RD TOE -Ulcer Cleansing Rinsed/ Irrigated with Saline -Primary Dressing Applied Aquacel Extra -Primary Dressing Covered/Secured with Dry Gauze,Dry Gauze & Roll Gauze,Secured with Tape -Aquacel Extra 1 Pain Scale: 0-10 Numeric Is Patient Pain Free? Yes WC - Visit Discharge Discharge Condition Stable Ambulatory Status Ambulatory Transportation Private Auto Charges/Coding Wound Center CF Procedures HBO Supervision: [id number] Hyperbaric Oxygen; supervision Assessment/Plan Assessment/Plan (1) Nonhealing nonsurgical wound with fat layer exposed: CODE(S): Code(s): T14.8XXA - Other injury of unspecified body region, initial encounter (2) Osteomyelitis of great toe of left foot: CODE(S): Code(s): M86.9 - Osteomyelitis, unspecified (3) Diabetic foot ulcer associated with type 2 diabetes mellitus: CODE(S): Code(s): E11.621 - Type 2 diabetes mellitus with foot ulcer; L97.509 - Non-pressure chronic ulcer of other part of unspecified foot with unspecified severity QUALIFIERS: Diabetic foot ulcer location: toe Laterality: left Non-pressure ulcer stage: with bone involvement without evidence of necrosis Qualified Code(s): E11.621 - Type 2 diabetes mellitus with foot ulcer; L97.526 - 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 involvement without evidence of necrosis PLAN: Patient is tolerating hyperbaric oxygen therapy well and will continue as per his medical plan. This note was generated with [employer] software. It may contain incorrect words, spelling, and punctuation that were not noted in checking the note before signing.
[2021-04-03 10:11] LABS: Bedside Glucose 177 mg/dL (70-110)
[2021-04-03 12:10] VITALS: BP 151/81; BP 158/74; PULSE 64; PULSE 68; RESP 16; TEMP 36.3; TEMP 36.4
[2021-04-03 12:26] LABS: Bedside Glucose 129 mg/dL (70-110)
[2021-04-06 10:15] LABS: Bedside Glucose 175 mg/dL (70-110)
--- NOTE | 2021-04-06 10:48 | HBO.PN.PCM_ITS ---
History of Present Illness Date of Service: 04/06/21 Chief Complaint: Non-healing left great toe plantar wound and left third toe plantar wound with osteomyelitis History of Wound: Mr Hatch Was referred here by his washroom attendant due to nonhealing left great toe wound status post surgery. Surgery was on 25 March and per patient was uneventful however has had delayed healing of his surgical wound. He has been on a 3-week course of doxycycline History of diabetes mellitus and per patient his last A1c was 7.6. He reports compliance with his medication. Denies chills, fever or otherwise feeling of unwell at this time. X-ray back in July 2020 showed osteomyelitis of the left great toe since then he has developed open area on the plantar side of the third toe. Patient is undergoing treatment with advanced wound care as well as hyperbaric oxygen treatment to salvage his left foot. Subjective Subjective Today's hyperbaric oxygen therapy session represents the 15th of such session of the planned 30 such sessions. Hyperbaric oxygen therapy was administered as per the facility's protocol. Hyperbaric oxygen therapy was administered at 2 tulio for 90 minutes with no air breaks. The patient tolerated hyperbaric oxygen therapy well, without complaints or complications. Upon emergence from the hyperbaric chamber, the patient's vital signs remained stable. The patient was discharged in good condition. Pre-and post?hyperbaric oxygen therapy blood glucose levels were documented elsewhere. Objective Data Objective Data Vital Signs: Vital Signs Temp Pulse Resp BP 97.4 F L 64 16 151/81 H 04/03/21 12:10 04/03/21 12:10 04/03/21 12:10 04/03/21 12:10 Weight: 235 lb Body Mass Index (BMI) 31.8 Lab / Micro Data Labs: Laboratory Results - last 24 hr 04/06/21 10:12 POC Glucose 175 H Exam Physical Exam Const alert and oriented x3 General Appearance: cooperative and comfortable HEENT normocephalic and TM's normal bilaterally Head and Scalp: normal to inspection Chest Chest: symmetrical chest wall rise Resp normal respiratory effort and normal air movement Effort and Inspection: able to speak in complete sentences Cardio regular rate and regular rhythm Assessment/Plan Assessment/Plan (1) Nonhealing nonsurgical wound with fat layer exposed: CODE(S): T14.8XXA - Other injury of unspecified body region, initial encounter (2) Osteomyelitis of great toe of left foot: CODE(S): M86.9 - Osteomyelitis, unspecified (3) Diabetic foot ulcer associated with type 2 diabetes mellitus: CODE(S): E11.621 - Type 2 diabetes mellitus with foot ulcer; L97.509 - Non-pressure chronic ulcer of other part of unspecified foot with unspecified severity QUALIFIERS: Diabetic foot ulcer location: toe Laterality: left Non-pressure ulcer stage: with bone involvement without evidence of necrosis Qualified Code(s): E11.621 - Type 2 diabetes mellitus with foot ulcer; L97.526 - 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 involvement without evidence of necrosis PLAN: Patient is tolerating hyperbaric oxygen therapy which will be continued as per the patient's medical plan.
[2021-04-06 12:11] VITALS: BP 148/72; BP 153/87; PULSE 64; PULSE 65; RESP 16; TEMP 36.8; TEMP 36.9
[2021-04-06 12:40] LABS: Bedside Glucose 122 mg/dL (70-110)
[2021-04-07 10:10] LABS: Bedside Glucose 150 mg/dL (70-110)
[2021-04-07 12:25] VITALS: BP 155/96; BP 162/77; PULSE 69; PULSE 70; RESP 17; TEMP 36.7; TEMP 36.8
[2021-04-07 12:25] LABS: Bedside Glucose 144 mg/dL (70-110)
--- NOTE | 2021-04-07 14:24 | HBO.PN.PCM_ITS ---
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 Surgery was on 25 March and per patient was uneventful however has had delayed healing of his surgical wound. He has been on a 3-week course of doxycycline History of diabetes mellitus and per patient his last A1c was 7.6. He reports compliance with his medication. Denies chills, fever or otherwise feeling of unwell at this time. X-ray back in July 2020 showed osteomyelitis of the left great toe since then he has developed open area on the plantar side of the third toe. Patient is undergoing treatment with advanced wound care as well as hyperbaric oxygen treatment to salvage his left foot. Subjective Subjective Today's hyperbaric oxygen therapy session represents the 16th of such session of the planned 30 such sessions. Hyperbaric oxygen therapy was administered as per the facility's protocol.? Hyperbaric oxygen therapy was administered at 2 tulio for 90 minutes with no air breaks.? The patient tolerated hyperbaric oxygen therapy well, without complaints or complications.? Upon emergence from the hyperbaric chamber, the patient's vital signs remained stable.? The patient was discharged in good condition.? Pre-and post?hyperbaric oxygen therapy blood glucose levels were documented elsewhere. Objective Data Objective Data Vital Signs: Vital Signs Temp Pulse Resp BP 98.2 F 69 17 155/96 H 04/07/21 12:25 04/07/21 12:25 04/07/21 12:25 04/07/21 12:25 Weight: 235 lb Body Mass Index (BMI) 31.8 Lab / Micro Data Labs: Laboratory Results - last 24 hr 04/07/21 04/07/21 10:06 12:16 POC Glucose 150 H 144 H Exam Physical Exam Const alert, oriented x3, no apparent distress and well nourished General Appearance: cooperative and well developed HEENT normocephalic Head and Scalp: atraumatic Eyes PERRL and EOMs intact bilaterally Resp normal respiratory effort and no use of accessory muscles Psych affect normal Appearance: grossly normal and well kempt Assessment/Plan Assessment/Plan (1) Nonhealing nonsurgical wound with fat layer exposed: CODE(S): T14.8XXA - Other injury of unspecified body region, initial encounter (2) Osteomyelitis of great toe of left foot: CODE(S): M86.9 - Osteomyelitis, unspecified (3) 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 (4) Diabetic foot ulcer associated with type 2 diabetes mellitus: CODE(S): E11.621 - Type 2 diabetes mellitus with foot ulcer; L97.509 - Non-pressure chronic ulcer of other part of unspecified foot with unspecified severity QUALIFIERS: Diabetic foot ulcer location: toe Laterality: left Non-pressure ulcer stage: with bone involvement without evidence of necrosis Qualified Code(s): E11.621 - Type 2 diabetes mellitus with foot ulcer; L97.526 - 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 involvement without evidence of necrosis (5) Diabetes mellitus: CODE(S): E11.9 - Type 2 diabetes mellitus without complications QUALIFIERS: Diabetes mellitus type: type 2 Diabetes mellitus longterm insulin use: without longterm use Diabetes mellitus complication status: with skin complications Diabetes mellitus complication detail: with foot ulcer Qualified Code(s): E11.621 - Type 2 diabetes mellitus with foot ulcer; L97.509 - Non-pressure chronic ulcer of other part of unspecified foot with unspecified severity (6) Chronic osteomyelitis involving ankle and foot: CODE(S): M86.679 - Other chronic osteomyelitis, unspecified ankle and foot QUALIFIERS: Laterality: left Qualified Code(s): M86.672 - Other chronic osteomyelitis, left ankle and foot PLAN: The patient appears to be tolerating hyperbaric oxygen therapy well, which will be continued as per the patient's medical plan.
[2021-04-08 09:09] VITALS: BP 150/81; PULSE 73; RESP 18; TEMP 36.4; BMI 31.8
[2021-04-08 09:56] LABS: Bedside Glucose 155 mg/dL (70-110)
--- NOTE | 2021-04-08 10:10 | PN.PCM_ITS ---
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 Surgery was on 25 March and per patient was uneventful however has had delayed healing of his surgical wound. He has been on a 3-week course of doxycycline History of diabetes mellitus and per patient his last A1c was 7.6. He reports compliance with his medication. Denies chills, fever or otherwise feeling of unwell at this time. X-ray back in July 2020 showed osteomyelitis of the left great toe since then he has developed open area on the plantar side of the third toe. Patient is undergoing treatment with advanced wound care as well as hyperbaric oxygen treatment to salvage his left foot. Subjective Subjective no concerns Objective Data Objective Data Starting to see improvement with the HBO treatments and the epifix Will continue same treatment plan From infectious disease showed up last week Tuesday and started him on 6 weeks of doxycycline for his osteomyelitis Patient will be continuing his HBO treatments also Vital Signs: Vital Signs Temp Pulse Resp BP 97.5 F L 73 18 150/81 H 04/08/21 09:09 04/08/21 09:09 04/08/21 09:09 04/08/21 09:09 Oxygen Delivery Method Room Air Weight: 235 lb Body Mass Index (BMI) 31.8 Lab / Micro Data Attestation: I reviewed the patient's lab results. Labs: Laboratory Results - last 24 hr 04/07/21 04/07/21 04/08/21 10:06 12:16 09:53 POC Glucose 150 H 144 H 155 H Physical Exam Const oriented x3 General Appearance: cooperative Exam Limitations: no limitations Resp normal respiratory effort Effort and Inspection: able to speak in complete sentences Auscultation: clear to auscultation bilaterally Cardio regular rate and regular rhythm Palpation: normal PMI Rate: regular rate Rhythm: regular rhythm GI Auscultation: normoactive bowel sounds Palpation: soft and no hepatosplenomegaly external exam normal Back/Spine Cervical Spine: cervical ROM normal Thoracic Spine / Upper Back: normal to inspection Lumbar Spine / Lower Back: normal to inspection Extremity normal to inspection General Extremity: normal exam except as noted Skin Wounds: wounds noted Neuro oriented x3 Psych Appearance: grossly normal Speech: normal speech Thought Content: normal thought content Judgement: judgement good Debridement Note Debridement Note Post-Debridement Measurements and Additional Note: Post-Debridement Measurements/Treatment - Nurse 1 - General Ulcer Assessment Start: 03/16/21 12:07 Freq: Status: Active Protocol: REMA Activity Type Activity Date Activity User E-Sign Co-Sign Detail Recorded Client Recorded Date Recorded By Document 03/18/21 08:56 KR [id number] 03/18/21 09:01 KR Document 03/25/21 09:22 KR [id number] 03/25/21 09:25 KR Document 04/01/21 09:28 KR [id number] 04/01/21 09:30 KR Document 04/08/21 09:09 [facility] [id number] 04/08/21 09:13 BM 03/18/21 03/25/21 04/01/21 08:56 09:22 09:28 - Today's Visit Information Type of service Follow-up Visit Follow-up Visit Follow-up Visit (Physician/LACTATION CONSULTANT (Physician/LACTATION CONSULTANT (Physician/LACTATION CONSULTANT ) ) ) Arrival Mode Ambulatory Ambulatory Ambulatory Transfer Assistance Patient Identification Verified (Name & Yes Yes Yes ) Patient Requires Transmission-Based Precautions Finger Stick Blood Sugar(mg/dl) (if 131 indicated): Blood Sugar Stated by Patient Height and Weight Body Mass Index (BMI) 31.8 31.8 31.8 BMI Classification Obese Obese Obese Vital Signs Temperature (97.8 F-99.1 F) 97.9 F 97.2 F L 97.7 F L Temperature Source Temporal Temporal Temporal Pulse Rate (60-100) 65 89 82 Pulse Location Monitor Monitor Monitor Respiratory Rate (12-18) Respiratory rate source Oxygen Delivery Method Blood Pressure (90/60-120/80) 175/73 H 179/89 H 163/87 H Blood Pressure Mean (mm Hg) 107 119 112 Source Monitor Monitor Monitor Position Sitting Semi-Fowlers Semi-Fowlers Blood Pressure Location Right Arm Left Arm Right Arm History Since Last Visit- (Skip if this is Patient's initial visit) Have you changed medications since your No No No last visit? Any new allergies or adverse reactions No No No Had a fall/change in ADL's that may No No No increase risk of falls Signs or symptoms of abuse and/or No No No neglect since last visit Have you been in the hospital since your No No No last visit? Has dressing in place as prescribed Yes Yes Yes Has compression in place as prescribed Yes N/A N/A Has offloadiing in place as prescribed N/A N/A N/A Experienced any changes in pain level or No No management Left Footwear Regular Shoe Regular Shoe Regular Shoe Right Footwear Regular Shoe Regular Shoe Regular Shoe Pain Scale: 0-10 Numeric Is Patient Pain Free? Yes Yes Yes 04/08/21 09:09 WC - Today's Visit Information Type of service Follow-up Visit (Physician/LACTATION CONSULTANT ) Arrival Mode Ambulatory Transfer Assistance None Patient Identification Verified (Name & Yes ) Patient Requires Transmission-Based No Precautions Finger Stick Blood Sugar(mg/dl) (if indicated): Blood Sugar Height and Weight Body Mass Index (BMI) 31.8 BMI Classification Obese Vital Signs Temperature (97.8 F-99.1 F) 97.5 F L Temperature Source Temporal Pulse Rate (60-100) 73 Pulse Location Monitor Respiratory Rate (12-18) 18 Respiratory rate source Observation Oxygen Delivery Method Room Air Blood Pressure (90/60-120/80) 150/81 H Blood Pressure Mean (mm Hg) 104 Source Monitor Position Sitting Blood Pressure Location Left Arm History Since Last Visit- (Skip if this is Patient's initial visit) Have you changed medications since your No last visit? Any new allergies or adverse reactions No Had a fall/change in ADL's that may No increase risk of falls Signs or symptoms of abuse and/or No neglect since last visit Have you been in the hospital since your No last visit? Has dressing in place as prescribed Yes Has compression in place as prescribed N/A Has offloadiing in place as prescribed N/A Experienced any changes in pain level or No management Left Footwear Regular Shoe Right Footwear Regular Shoe Pain Scale: 0-10 Numeric Is Patient Pain Free? Yes - Nurse 1 - General Ulcer Measurement Start: 03/16/21 12:07 Freq: Status: Active Protocol: Activity Type Activity Date Activity User E-Sign Co-Sign Detail Recorded Client Recorded Date Recorded By Document 03/18/21 08:56 NEEMA [id number] 03/18/21 09:01 KR Document 03/25/21 09:22 KR [id number] 03/25/21 09:25 KR Document 04/01/21 09:28 KR [id number] 04/01/21 09:30 KR Document 04/08/21 09:09 [facility] [id number] 04/08/21 09:13 BMF 03/18/21 03/25/21 04/01/21 08:56 09:22 09:28 Wound Center Nurse 1 #5- L PLANTAR FOOT 1ST MET -Current Size (cm) - Length 0.1 -Current Size (cm) - Width 0.1 -Current Size (cm) - Depth 0.1 -Total Square Cm 0.01 -Exudate Amt Small -Exudate Type Serosanguineous -Wound Margin Distinct, Outline Attached -Granulation Amt None Present (0 %) -Granulation Quality Red -Necrosis Amt None Present (0 %) -Texture (Angie-wound Skin Appearance) Assessed, Scarring -Moisture (Angie-wound Skin Appearance) No Abnormality, Assessed -Temperature (Angie-wound Skin No Abnormality Appearance) (Pt Warm) -Tenderness on Palpation (Angie-wound No Skin Appearance) -Ulcer Cleansing Rinsed/ Irrigated with Saline -Foul Odor after Cleansing No -Anesthetic Used 4% Lidocaine Solution #4- L PLANTAR 3RD TOE -Combined with other wound -Current Size (cm) - Length 1.5 1.4 1.5 -Current Size (cm) - Width 1.5 1.5 1.6 -Current Size (cm) - Depth 0.3 0.1 0.1 -Total Square Cm 2.25 2.10 2.40 -Photo Taken -Epithelialization -Tunneling -Undermining/Tunneling -Circular Undermining -Exudate Amt Medium Small Small -Exudate Type Serosanguineous Serosanguineous Serosanguineous -Wound Margin Distinct, Distinct, Distinct, Outline Outline Outline Attached Attached Attached -Granulation Amt Large (67-100%) Medium (34-66%) Large (67-100%) -Granulation Quality Red Red Red -Slough/Fibrin No -Necrosis Amt None Present (0 Medium (34-66%) Small (1-33%) %) -Necrotic Tissue Type Adherent Slough Adherent Slough -Texture (Angie-wound Skin Appearance) Assessed, Assessed, Assessed, Scarring Scarring Scarring -Moisture (Angie-wound Skin Appearance) No Abnormality, No Abnormality, No Abnormality, Assessed Assessed Assessed -Color (Angie-wound Skin Appearance) No Abnormality, No Abnormality, No Abnormality, Assessed Assessed Assessed -Temperature (Angie-wound Skin No Abnormality No Abnormality No Abnormality Appearance) (Pt Warm) (Pt Warm) (Pt Warm) -Tenderness on Palpation (Angie-wound No No No Skin Appearance) -Ulcer Cleansing Rinsed/ Rinsed/ Rinsed/ Irrigated with Irrigated with Irrigated with Saline Saline Saline -Foul Odor after Cleansing No No No -Anesthetic Used 4% Lidocaine 5% Lidocaine 5% Lidocaine Solution Gel Gel 04/08/21 09:09 Wound Center Nurse 1 #5- L PLANTAR FOOT 1ST MET -Current Size (cm) - Length -Current Size (cm) - Width -Current Size (cm) - Depth -Total Square Cm -Exudate Amt -Exudate Type -Wound Margin -Granulation Amt -Granulation Quality -Necrosis Amt -Texture (Angie-wound Skin Appearance) -Moisture (Angie-wound Skin Appearance) -Temperature (Agnie-wound Skin Appearance) -Tenderness on Palpation (Angie-wound Skin Appearance) -Ulcer Cleansing -Foul Odor after Cleansing -Anesthetic Used #4- L PLANTAR 3RD TOE -Combined with other wound No -Current Size (cm) - Length 1.5 -Current Size (cm) - Width 1.1 -Current Size (cm) - Depth 0.2 -Total Square Cm 1.65 -Photo Taken No -Epithelialization None Present -Tunneling No -Undermining/Tunneling No -Circular Undermining No -Exudate Amt Medium -Exudate Type Serosanguineous -Wound Margin Distinct, Outline Attached -Granulation Amt Large (67-100%) -Granulation Quality Red -Slough/Fibrin No -Necrosis Amt None Present (0 %) -Necrotic Tissue Type -Texture (Angie-wound Skin Appearance) Assessed, Scarring -Moisture (Angie-wound Skin Appearance) Assessed, Maceration -Color (Angie-wound Skin Appearance) Assessed,Palor -Temperature (Angie-wound Skin No Abnormality Appearance) (Pt Warm) -Tenderness on Palpation (Angie-wound No Skin Appearance) -Ulcer Cleansing soapy water -Foul Odor after Cleansing No -Anesthetic Used 5% Lidocaine Gel WC - Nurse 2 - General Ulcer CM Notes Start: 03/16/21 12:07 Freq: Status: Active Protocol: Activity Type Activity Date Activity User E-Sign Co-Sign Detail Recorded Client Recorded Date Recorded By Document 03/18/21 09:23 MW [id number] 03/18/21 09:32 MW Document 03/25/21 09:34 MW [id number] 03/25/21 09:46 MW Document 04/01/21 09:44 MW [id number] 04/01/21 09:56 MW Document 04/08/21 09:19 MW [id number] 04/08/21 09:29 MW 03/18/21 03/25/21 04/01/21 09:23 09:34 09:44 Wound Center Nurse 2 #5- L PLANTAR FOOT 1ST MET -Time 09:24 -Correct Patient Yes -Correct Side, Site, Position Yes -Correct Procedure Yes -Procedure Performed No -Post Debridement (cm) - Length 0 -Post Debridement (cm) - Width 0 -Post Debridement (cm) - Depth 0 -Total Square (Post) (cm) 0 -Wound/Ulcer Outcome Healed- Epithelialized #4- L PLANTAR 3RD TOE -Time 09:24 09:35 09:44 -Correct Patient Yes Yes Yes -Correct Side, Site, Position Yes Yes Yes -Correct Procedure Yes Yes Yes -Procedure Performed Yes Yes Yes -Type of Procedure Debridement Debridement Debridement -Clinical Debridement Subcutaneous Subcutaneous Subcutaneous -Tissue Removed Subcutaneous Subcutaneous Subcutaneous -Post Debridement (cm) - Length 1.5 1.5 1.5 -Post Debridement (cm) - Width 1.6 1.8 1.5 -Post Debridement (cm) - Depth 0.1 0.1 0.1 -Total Square (Post) (cm) 2.40 2.70 2.25 -Area of Debridement (cm) - Length 1.5 1.5 1.5 -Area of Debridement (cm) - Width 1.6 1.8 1.5 -Total Square (Area) (cm) 2.40 2.70 2.25 -Tunneling No No No -Undermining/Tunneling No No No -Circular Undermining No No No -Wound/Ulcer Outcome Not Healed Not Healed Not Healed -Ulcer Cleansing Rinsed/ Rinsed/ Rinsed/ Irrigated with Irrigated with Irrigated with Saline Saline Saline -Foul Odor after Cleansing No No No -Bioengineered Tissue Yes Yes Yes -Type of Bioengineered Tissue Epifix 18mm Epifix 18mm Epifix 18mm Disc Disc Disc -Expiration Date 11/14/25 11/14/25 11/14/25 -Product Lot Number [id number] -Percent Used 100 100 100 -Lot number of Saline Used [id number] -Bleeding Controlled with Pressure Pressure Pressure -Offloading No No No -Treatment Response Procedure Procedure Procedure Tolerated Well Tolerated Well Tolerated Well -Debridement - Subq, 1st 20sq cm No No No -Apply Skin Sub - 1st 25 sq cm - Feet 1 1 1 -Epifix 18mm Disc 3 3 3 Pain Scale: 0-10 Numeric Is Patient Pain Free? Yes Yes Yes 04/08/21 09:19 Wound Center Nurse 2 #5- L PLANTAR FOOT 1ST MET -Time -Correct Patient -Correct Side, Site, Position -Correct Procedure -Procedure Performed -Post Debridement (cm) - Length -Post Debridement (cm) - Width -Post Debridement (cm) - Depth -Total Square (Post) (cm) -Wound/Ulcer Outcome #4- L PLANTAR 3RD TOE -Time 09:20 -Correct Patient Yes -Correct Side, Site, Position Yes -Correct Procedure Yes -Procedure Performed Yes -Type of Procedure Debridement -Clinical Debridement Subcutaneous -Tissue Removed Subcutaneous -Post Debridement (cm) - Length 1.5 -Post Debridement (cm) - Width 1.4 -Post Debridement (cm) - Depth 0.1 -Total Square (Post) (cm) 2.10 -Area of Debridement (cm) - Length 1.5 -Area of Debridement (cm) - Width 1.4 -Total Square (Area) (cm) 2.10 -Tunneling No -Undermining/Tunneling No -Circular Undermining No -Wound/Ulcer Outcome Not Healed -Ulcer Cleansing Rinsed/ Irrigated with Saline -Foul Odor after Cleansing No -Bioengineered Tissue Yes -Type of Bioengineered Tissue Epifix 18mm Disc -Expiration Date 01/12/26 -Product Lot Number [id number] -Percent Used 100 -Lot number of Saline Used [id number] -Bleeding Controlled with Pressure -Offloading No -Treatment Response Procedure Tolerated Well -Debridement - Subq, 1st 20sq cm No -Apply Skin Sub - 1st 25 sq cm - Feet 1 -Epifix 18mm Disc 3 Pain Scale: 0-10 Numeric Is Patient Pain Free? Yes - Nurse 3 - General Ulcer D/C NN Start: 03/16/21 12:07 Freq: Status: Active Protocol: Activity Type Activity Date Activity User E-Sign Co-Sign Detail Recorded Client Recorded Date Recorded By Document 03/18/21 09:47 KR [id number] 03/18/21 09:48 KR Document 03/25/21 09:55 KR [id number] 03/25/21 09:56 KR Document 04/01/21 10:01 KR [id number] 04/01/21 10:01 KR Document 04/08/21 09:31 MS [id number] 04/08/21 09:32 MS 03/18/21 03/25/21 04/01/21 09:47 09:55 10:01 Wound Care Nurse 3 #4- L PLANTAR 3RD TOE -Ulcer Cleansing Rinsed/ Irrigated with Saline -Primary Dressing Applied Aquacel Extra Aquacel Extra Aquacel Extra -Primary Dressing Covered/Secured with Dry Gauze, Dry Gauze,Dry Dry Gauze,Dry Secured with Gauze & Roll Gauze & Roll Tape Gauze,Secured Gauze,Secured with Tape with Tape -Aquacel Extra 1 1 1 Pain Scale: 0-10 Numeric Is Patient Pain Free? Yes Yes Yes WC - Visit Discharge Discharge Condition Stable Stable Stable Ambulatory Status Ambulatory Ambulatory Ambulatory Transportation Private Auto Private Auto Private Auto Accompanied by Medication Reconcilliation completed & provided to patient/care provider Clinical Summary of Care Provided 04/08/21 09:31 Wound Care Nurse 3 #4- L PLANTAR 3RD TOE -Ulcer Cleansing -Primary Dressing Applied Aquacel Extra -Primary Dressing Covered/Secured with Dry Gauze & Roll Gauze, Secured with Tape -Aquacel Extra 1 Pain Scale: 0-10 Numeric Is Patient Pain Free? Yes WC - Visit Discharge Discharge Condition Stable Ambulatory Status Ambulatory Transportation Private Auto Accompanied by Medication Reconcilliation completed & No provided to patient/care provider Clinical Summary of Care Provided Yes Wound debrided: Left third toe Wound Grade/Stage: Bal 2 Type of Debridement: Excisional debridement Anesthesia Used: 5% Lidocaine Gel Depth: Down to and including healthy tissue and in the subcutaneous layer Percentage of wound debrided: 100 Instrument Used: 5mm curette and - (Nippers) Tissue Removed: Devitalized tissue and fibrin Severity: Limited To Skin Breakdown Amount of bleeding with debridement: Mild Bleeding Controlled with: Pressure Patient tolerated procedure: Patient tolerated procedure well Assessment/Plan Assessment/Plan (1) Nonhealing nonsurgical wound with fat layer exposed: CODE(S): T14.8XXA - Other injury of unspecified body region, initial encounter PLAN: Epi fix #6 applied wound veil, Steri-Strips, gauze padding Follow-up in 1 week (2) Osteomyelitis of great toe of left foot: CODE(S): M86.9 - Osteomyelitis, unspecified PLAN: Continue HBO treatments (3) 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
[2021-04-08 10:26] VITALS: BP 150/81; BP 152/79; PULSE 73; PULSE 76; RESP 17; RESP 18; TEMP 36.3; TEMP 36.4
--- NOTE | 2021-04-08 11:35 | HBO.PN.PCM_ITS ---
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 Surgery was on 25 March and per patient was uneventful however has had delayed healing of his surgical wound. He has been on a 3-week course of doxycycline History of diabetes mellitus and per patient his last A1c was 7.6. He reports compliance with his medication. Denies chills, fever or otherwise feeling of unwell at this time. X-ray back in July 2020 showed osteomyelitis of the left great toe since then he has developed open area on the plantar side of the third toe. Patient is undergoing treatment with advanced wound care as well as hyperbaric oxygen treatment to salvage his left foot. Objective Data Objective Data Here for HBO treatment #17, for his DFU of the left foot and osteomyelitis patient tolerant to treatments and will continue preblood sugars were within normal limits patient is stable and will be discharged with stable vital signs follow-up in 1 day Vital Signs: Vital Signs Temp Pulse Resp BP 97.5 F L 73 18 150/81 H 04/08/21 10:26 04/08/21 10:26 04/08/21 10:26 04/08/21 10:26 Oxygen Delivery Method Room Air Weight: 235 lb Body Mass Index (BMI) 31.8 Lab / Micro Data Labs: Laboratory Results - last 24 hr 04/07/21 04/08/21 12:16 09:53 POC Glucose 144 H 155 H Exam Nursing Assessment and Debridement Post-Debridement Measurements and Additional Note: Post-Debridement Measurements/Treatment - Nurse 1 - General Ulcer Assessment Start: 03/16/21 12:07 Freq: Status: Active Protocol: WC.LOWEXT Activity Type Activity Date Activity User E-Sign Co-Sign Detail Recorded Client Recorded Date Recorded By Document 04/08/21 09:09 [facility] [id number] 04/08/21 09:13 [facility] 04/08/21 09:09 - Today's Visit Information Type of service Follow-up Visit (Physician/[employer] ) Arrival Mode Ambulatory Transfer Assistance None Patient Identification Verified (Name & Yes ) Patient Requires Transmission-Based No Precautions Height and Weight Body Mass Index (BMI) 31.8 BMI Classification Obese Vital Signs Temperature (97.8 F-99.1 F) 97.5 F L Temperature Source Temporal Pulse Rate (60-100) 73 Pulse Location Monitor Respiratory Rate (12-18) 18 Respiratory rate source Observation Oxygen Delivery Method Room Air Blood Pressure (90/60-120/80) 150/81 H Blood Pressure Mean (mm Hg) 104 Source Monitor Position Sitting Blood Pressure Location Left Arm History Since Last Visit- (Skip if this is Patient's initial visit) Have you changed medications since your No last visit? Any new allergies or adverse reactions No Had a fall/change in ADL's that may No increase risk of falls Signs or symptoms of abuse and/or No neglect since last visit Have you been in the hospital since your No last visit? Has dressing in place as prescribed Yes Has compression in place as prescribed N/A Has offloadiing in place as prescribed N/A Experienced any changes in pain level or No management Left Footwear Regular Shoe Right Footwear Regular Shoe Pain Scale: 0-10 Numeric Is Patient Pain Free? Yes WC - Nurse 1 - General Ulcer Measurement Start: 03/16/21 12:07 Freq: Status: Active Protocol: Activity Type Activity Date Activity User E-Sign Co-Sign Detail Recorded Client Recorded Date Recorded By Document 04/08/21 09:09 [facility] [id number] 04/08/21 09:13 [facility] 04/08/21 09:09 Wound Center Nurse 1 #4- L PLANTAR 3RD TOE -Combined with other wound No -Current Size (cm) - Length 1.5 -Current Size (cm) - Width 1.1 -Current Size (cm) - Depth 0.2 -Total Square Cm 1.65 -Photo Taken No -Epithelialization None Present -Tunneling No -Undermining/Tunneling No -Circular Undermining No -Exudate Amt Medium -Exudate Type Serosanguineous -Wound Margin Distinct, Outline Attached -Granulation Amt Large (67-100%) -Granulation Quality Red -Slough/Fibrin No -Necrosis Amt None Present (0 %) -Texture (Angie-wound Skin Appearance) Assessed, Scarring -Moisture (Angie-wound Skin Appearance) Assessed, Maceration -Color (Angie-wound Skin Appearance) Assessed,Palor -Temperature (Angie-wound Skin No Abnormality Appearance) (Pt Warm) -Tenderness on Palpation (Angie-wound No Skin Appearance) -Ulcer Cleansing soapy water -Foul Odor after Cleansing No -Anesthetic Used 5% Lidocaine Gel WC - Nurse 2 - General Ulcer CM Notes Start: 03/16/21 12:07 Freq: Status: Active Protocol: Activity Type Activity Date Activity User E-Sign Co-Sign Detail Recorded Client Recorded Date Recorded By Document 04/08/21 09:19 MW [id number] 04/08/21 09:29 MW 04/08/21 09:19 Wound Center Nurse 2 -Time 09:20 -Correct Patient Yes -Correct Side, Site, Position Yes -Correct Procedure Yes -Procedure Performed Yes -Type of Procedure Debridement -Clinical Debridement Subcutaneous -Tissue Removed Subcutaneous -Post Debridement (cm) - Length 1.5 -Post Debridement (cm) - Width 1.4 -Post Debridement (cm) - Depth 0.1 -Total Square (Post) (cm) 2.10 -Area of Debridement (cm) - Length 1.5 -Area of Debridement (cm) - Width 1.4 -Total Square (Area) (cm) 2.10 -Tunneling No -Undermining/Tunneling No -Circular Undermining No -Wound/Ulcer Outcome Not Healed -Ulcer Cleansing Rinsed/ Irrigated with Saline -Foul Odor after Cleansing No -Bioengineered Tissue Yes -Type of Bioengineered Tissue Epifix 18mm Disc -Expiration Date 01/12/26 -Product Lot Number [id number] -Percent Used 100 -Lot number of Saline Used [id number] -Bleeding Controlled with Pressure -Offloading No -Treatment Response Procedure Tolerated Well -Debridement - Subq, 1st 20sq cm No -Apply Skin Sub - 1st 25 sq cm - Feet 1 -Epifix 18mm Disc 3 Pain Scale: 0-10 Numeric Is Patient Pain Free? Yes WC - Nurse 3 - General Ulcer D/C NN Start: 03/16/21 12:07 Freq: Status: Active Protocol: Activity Type Activity Date Activity User E-Sign Co-Sign Detail Recorded Client Recorded Date Recorded By Document 04/08/21 09:31 MS [id number] 04/08/21 09:32 MS 04/08/21 09:31 Wound Care Nurse 3 #4- L PLANTAR 3RD TOE -Primary Dressing Applied Aquacel Extra -Primary Dressing Covered/Secured with Dry Gauze & Roll Gauze, Secured with Tape -Aquacel Extra 1 Pain Scale: 0-10 Numeric Is Patient Pain Free? Yes WC - Visit Discharge Discharge Condition Stable Ambulatory Status Ambulatory Transportation Private Auto Medication Reconcilliation completed & No provided to patient/care provider Clinical Summary of Care Provided Yes Assessment/Plan Assessment/Plan (1) Osteomyelitis of great toe of left foot: CODE(S): M86.9 - Osteomyelitis, unspecified PLAN: Continue HBO treatments foot is improving (2) Nonhealing nonsurgical wound with fat layer exposed: CODE(S): T14.8XXA - Other injury of unspecified body region, initial encounter
[2021-04-08 12:16] LABS: Bedside Glucose 150 mg/dL (70-110)
[2021-04-09 10:01] LABS: Bedside Glucose 202 mg/dL (70-110)
[2021-04-09 10:40] VITALS: BP 143/67; BP 157/88; PULSE 71; PULSE 80; RESP 16; RESP 17; TEMP 36.7; TEMP 36.8
--- NOTE | 2021-04-09 11:49 | HBO.PN.PCM_ITS ---
History of Present Illness Date of Service: 04/09/21 Chief Complaint: Non-healing left great toe plantar wound and left third toe plantar wound with osteomyelitis History of Wound: Mr Hatch Was referred here by his governor assembler hydraulic due to nonhealing left great toe wound status post surgery. Surgery was on 25 March and per patient was uneventful however has had delayed healing of his surgical wound. He has been on a 3-week course of doxycycline History of diabetes mellitus and per patient his last A1c was 7.6. He reports compliance with his medication. Denies chills, fever or otherwise feeling of unwell at this time. X-ray back in July 2020 showed osteomyelitis of the left great toe since then he has developed open area on the plantar side of the third toe. Patient is undergoing treatment with advanced wound care as well as hyperbaric oxygen treatment to salvage his left foot. Subjective Subjective Today's hyperbaric oxygen therapy session represents the 18th of such session of the planned 30 such sessions. Hyperbaric oxygen therapy was administered as per the facility's protocol.? Hyperbaric oxygen therapy was administered at 2 tulio for 90 minutes with no air breaks.? The patient tolerated hyperbaric oxygen therapy well, without complaints or complications.? Upon emergence from the hyperbaric chamber, the patient's vital signs remained stable.? The patient was discharged in good condition.? Pre-and post?hyperbaric oxygen therapy blood glucose levels were documented elsewhere. Objective Data Objective Data Vital Signs: Vital Signs Temp Pulse Resp BP 98.2 F 80 17 143/67 H 04/09/21 10:40 04/09/21 10:40 04/09/21 10:40 04/09/21 10:40 Oxygen Delivery Method Room Air Weight: 235 lb Body Mass Index (BMI) 31.8 Lab / Micro Data Labs: Laboratory Results - last 24 hr 04/08/21 04/09/21 12:08 09:57 POC Glucose 150 H 202 H Exam Physical Exam Const alert, oriented x3 and no apparent distress General Appearance: cooperative and comfortable HEENT normocephalic, hearing grossly normal bilaterally and TM's normal bilaterally Eyes EOMs intact bilaterally Neck full ROM and supple General: normal visual inspection Resp normal respiratory effort Effort and Inspection: able to speak in complete sentences Cardio regular rate Neuro oriented x3, CN's II-XII intact bilaterally and moves all extremities Psych mental status grossly normal Appearance: grossly normal Nursing Assessment and Debridement Post-Debridement Measurements and Additional Note: Post-Debridement Measurements/Treatment - Nurse 1 - General Ulcer Assessment Start: 03/16/21 12:07 Freq: Status: Active Protocol: REMA Activity Type Activity Date Activity User E-Sign Co-Sign Detail Recorded Client Recorded Date Recorded By Document 04/08/21 09:09 [facility] [id number] 04/08/21 09:13 [facility] 04/08/21 09:09 WC - Today's Visit Information Type of service Follow-up Visit (Physician/[employer]ER ) Arrival Mode Ambulatory Transfer Assistance None Patient Identification Verified (Name & Yes ) Patient Requires Transmission-Based No Precautions Height and Weight Body Mass Index (BMI) 31.8 BMI Classification Obese Vital Signs Temperature (97.8 F-99.1 F) 97.5 F L Temperature Source Temporal Pulse Rate (60-100) 73 Pulse Location Monitor Respiratory Rate (12-18) 18 Respiratory rate source Observation Oxygen Delivery Method Room Air Blood Pressure (90/60-120/80) 150/81 H Blood Pressure Mean (mm Hg) 104 Source Monitor Position Sitting Blood Pressure Location Left Arm History Since Last Visit- (Skip if this is Patient's initial visit) Have you changed medications since your No last visit? Any new allergies or adverse reactions No Had a fall/change in ADL's that may No increase risk of falls Signs or symptoms of abuse and/or No neglect since last visit Have you been in the hospital since your No last visit? Has dressing in place as prescribed Yes Has compression in place as prescribed N/A Has offloadiing in place as prescribed N/A Experienced any changes in pain level or No management Left Footwear Regular Shoe Right Footwear Regular Shoe Pain Scale: 0-10 Numeric Is Patient Pain Free? Yes - Nurse 1 - General Ulcer Measurement Start: 03/16/21 12:07 Freq: Status: Active Protocol: Activity Type Activity Date Activity User E-Sign Co-Sign Detail Recorded Client Recorded Date Recorded By Document 04/08/21 09:09 [facility] [id number] 04/08/21 09:13 [facility] 04/08/21 09:09 Wound Center Nurse 1 #4- L PLANTAR 3RD TOE -Combined with other wound No -Current Size (cm) - Length 1.5 -Current Size (cm) - Width 1.1 -Current Size (cm) - Depth 0.2 -Total Square Cm 1.65 -Photo Taken No -Epithelialization None Present -Tunneling No -Undermining/Tunneling No -Circular Undermining No -Exudate Amt Medium -Exudate Type Serosanguineous -Wound Margin Distinct, Outline Attached -Granulation Amt Large (67-100%) -Granulation Quality Red -Slough/Fibrin No -Necrosis Amt None Present (0 %) -Texture (Angie-wound Skin Appearance) Assessed, Scarring -Moisture (Angie-wound Skin Appearance) Assessed, Maceration -Color (Angie-wound Skin Appearance) Assessed,Palor -Temperature (Angie-wound Skin No Abnormality Appearance) (Pt Warm) -Tenderness on Palpation (Angie-wound No Skin Appearance) -Ulcer Cleansing soapy water -Foul Odor after Cleansing No -Anesthetic Used 5% Lidocaine Gel WC - Nurse 2 - General Ulcer CM Notes Start: 03/16/21 12:07 Freq: Status: Active Protocol: Activity Type Activity Date Activity User E-Sign Co-Sign Detail Recorded Client Recorded Date Recorded By Document 04/08/21 09:19 MW [id number] 04/08/21 09:29 MW 04/08/21 09:19 Wound Center Nurse 2 -Time 09:20 -Correct Patient Yes -Correct Side, Site, Position Yes -Correct Procedure Yes -Procedure Performed Yes -Type of Procedure Debridement -Clinical Debridement Subcutaneous -Tissue Removed Subcutaneous -Post Debridement (cm) - Length 1.5 -Post Debridement (cm) - Width 1.4 -Post Debridement (cm) - Depth 0.1 -Total Square (Post) (cm) 2.10 -Area of Debridement (cm) - Length 1.5 -Area of Debridement (cm) - Width 1.4 -Total Square (Area) (cm) 2.10 -Tunneling No -Undermining/Tunneling No -Circular Undermining No -Wound/Ulcer Outcome Not Healed -Ulcer Cleansing Rinsed/ Irrigated with Saline -Foul Odor after Cleansing No -Bioengineered Tissue Yes -Type of Bioengineered Tissue Epifix 18mm Disc -Expiration Date 01/12/26 -Product Lot Number [id number] -Percent Used 100 -Lot number of Saline Used [id number] -Bleeding Controlled with Pressure -Offloading No -Treatment Response Procedure Tolerated Well -Debridement - Subq, 1st 20sq cm No -Apply Skin Sub - 1st 25 sq cm - Feet 1 -Epifix 18mm Disc 3 Pain Scale: 0-10 Numeric Is Patient Pain Free? Yes WC - Nurse 3 - General Ulcer D/C NN Start: 03/16/21 12:07 Freq: Status: Active Protocol: Activity Type Activity Date Activity User E-Sign Co-Sign Detail Recorded Client Recorded Date Recorded By Document 04/08/21 09:31 MS [id number] 04/08/21 09:32 MS 04/08/21 09:31 Wound Care Nurse 3 #4- L PLANTAR 3RD TOE -Primary Dressing Applied Aquacel Extra -Primary Dressing Covered/Secured with Dry Gauze & Roll Gauze, Secured with Tape -Aquacel Extra 1 Pain Scale: 0-10 Numeric Is Patient Pain Free? Yes WC - Visit Discharge Discharge Condition Stable Ambulatory Status Ambulatory Transportation Private Auto Medication Reconcilliation completed & No provided to patient/care provider Clinical Summary of Care Provided Yes Charges/Coding Wound Center CF Procedures HBO Supervision: [id number] Hyperbaric Oxygen; supervision Assessment/Plan Assessment/Plan (1) Nonhealing nonsurgical wound with fat layer exposed: CODE(S): T14.8XXA - Other injury of unspecified body region, initial encounter (2) Osteomyelitis of great toe of left foot: CODE(S): M86.9 - Osteomyelitis, unspecified (3) Diabetic foot ulcer associated with type 2 diabetes mellitus: CODE(S): E11.621 - Type 2 diabetes mellitus with foot ulcer; L97.509 - Non-pressure chronic ulcer of other part of unspecified foot with unspecified severity QUALIFIERS: Diabetic foot ulcer location: toe Laterality: left Non-pressure ulcer stage: with bone involvement without evidence of necrosis Qualified Code(s): E11.621 - Type 2 diabetes mellitus with foot ulcer; L97.526 - 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 involvement without evidence of necrosis PLAN: Patient is tolerating hyperbaric oxygen therapy well and will continue as per his medical plan. This note was generated with [employer] software. It may contain incorrect words, spelling, and punctuation that were not noted in checking the note before signing.
[2021-04-09 12:20] LABS: Bedside Glucose 158 mg/dL (70-110)
[2021-04-10 10:06] LABS: Bedside Glucose 166 mg/dL (70-110)
[2021-04-10 10:35] VITALS: BP 144/69; BP 152/79; PULSE 71; PULSE 77; RESP 16; RESP 18; TEMP 36.6; TEMP 36.8
[2021-04-10 12:21] LABS: Bedside Glucose 142 mg/dL (70-110)
--- NOTE | 2021-04-10 12:52 | PCM.HBO.PN ---
History of Present Illness Date of Service: 04/10/21 Chief Complaint: Non-healing left great toe plantar wound and left third toe plantar wound with osteomyelitis History of Wound: Mr Hatch Was referred here by his scale clerk due to nonhealing left great toe wound status post surgery. Surgery was on 25 March and per patient was uneventful however has had delayed healing of his surgical wound. He has been on a 3-week course of doxycycline History of diabetes mellitus and per patient his last A1c was 7.6. He reports compliance with his medication. Denies chills, fever or otherwise feeling of unwell at this time. X-ray back in July 2020 showed osteomyelitis of the left great toe since then he has developed open area on the plantar side of the third toe. Patient is undergoing treatment with advanced wound care as well as hyperbaric oxygen treatment to salvage his left foot. Subjective Subjective Today's hyperbaric oxygen therapy session represents the 19th of such session of the planned 30 such sessions. Hyperbaric oxygen therapy was administered as per the facility's protocol.? Hyperbaric oxygen therapy was administered at 2 tulio for 90 minutes with no air breaks.? The patient tolerated hyperbaric oxygen therapy well, without complaints or complications.? Upon emergence from the hyperbaric chamber, the patient's vital signs remained stable.? The patient was discharged in good condition.? Pre-and post?hyperbaric oxygen therapy blood glucose levels were documented elsewhere. Objective Data Objective Data Vital Signs: Vital Signs Temp Pulse Resp BP 98.2 F 71 18 144/69 H 04/10/21 10:35 04/10/21 10:35 04/10/21 10:35 04/10/21 10:35 Oxygen Delivery Method Room Air Weight: 106.594 kg Body Mass Index (BMI) 31.8 Lab / Micro Data Labs: Laboratory Results - last 24 hr 04/10/21 04/10/21 10:02 12:13 POC Glucose 166 H 142 H Exam Physical Exam Const alert, oriented x3 and no apparent distress General Appearance: cooperative Psych mental status grossly normal and affect normal Appearance: grossly normal and appropriate Nursing Assessment and Debridement Post-Debridement Measurements and Additional Note: Post-Debridement Measurements/Treatment WC - Nurse 1 - General Ulcer Assessment Start: 03/16/21 12:07 Freq: Status: Active Protocol: REMA Activity Type Activity Date Activity User E-Sign Co-Sign Detail Recorded Client Recorded Date Recorded By Document 04/08/21 09:09 [facility] [id number] 04/08/21 09:13 [facility] 04/08/21 09:09 - Today's Visit Information Type of service Follow-up Visit (Physician/[employer] ) Arrival Mode Ambulatory Transfer Assistance None Patient Identification Verified (Name & Yes ) Patient Requires Transmission-Based No Precautions Height and Weight Body Mass Index (BMI) 31.8 BMI Classification Obese Vital Signs Temperature (97.8 F-99.1 F) 97.5 F L Temperature Source Temporal Pulse Rate (60-100) 73 Pulse Location Monitor Respiratory Rate (12-18) 18 Respiratory rate source Observation Oxygen Delivery Method Room Air Blood Pressure (90/60-120/80) 150/81 H Blood Pressure Mean (mm Hg) 104 Source Monitor Position Sitting Blood Pressure Location Left Arm History Since Last Visit- (Skip if this is Patient's initial visit) Have you changed medications since your No last visit? Any new allergies or adverse reactions No Had a fall/change in ADL's that may No increase risk of falls Signs or symptoms of abuse and/or No neglect since last visit Have you been in the hospital since your No last visit? Has dressing in place as prescribed Yes Has compression in place as prescribed N/A Has offloadiing in place as prescribed N/A Experienced any changes in pain level or No management Left Footwear Regular Shoe Right Footwear Regular Shoe Pain Scale: 0-10 Numeric Is Patient Pain Free? Yes - Nurse 1 - General Ulcer Measurement Start: 03/16/21 12:07 Freq: Status: Active Protocol: Activity Type Activity Date Activity User E-Sign Co-Sign Detail Recorded Client Recorded Date Recorded By Document 04/08/21 09:09 [facility] [id number] 04/08/21 09:13 [facility] 04/08/21 09:09 Wound Center Nurse 1 #4- L PLANTAR 3RD TOE -Combined with other wound No -Current Size (cm) - Length 1.5 -Current Size (cm) - Width 1.1 -Current Size (cm) - Depth 0.2 -Total Square Cm 1.65 -Photo Taken No -Epithelialization None Present -Tunneling No -Undermining/Tunneling No -Circular Undermining No -Exudate Amt Medium -Exudate Type Serosanguineous -Wound Margin Distinct, Outline Attached -Granulation Amt Large (67-100%) -Granulation Quality Red -Slough/Fibrin No -Necrosis Amt None Present (0 %) -Texture (Angie-wound Skin Appearance) Assessed, Scarring -Moisture (Angie-wound Skin Appearance) Assessed, Maceration -Color (Angie-wound Skin Appearance) Assessed,Palor -Temperature (Angie-wound Skin No Abnormality Appearance) (Pt Warm) -Tenderness on Palpation (Angie-wound No Skin Appearance) -Ulcer Cleansing soapy water -Foul Odor after Cleansing No -Anesthetic Used 5% Lidocaine Gel WC - Nurse 2 - General Ulcer CM Notes Start: 03/16/21 12:07 Freq: Status: Active Protocol: Activity Type Activity Date Activity User E-Sign Co-Sign Detail Recorded Client Recorded Date Recorded By Document 04/08/21 09:19 MW [id number] 04/08/21 09:29 MW 04/08/21 09:19 Wound Center Nurse 2 -Time 09:20 -Correct Patient Yes -Correct Side, Site, Position Yes -Correct Procedure Yes -Procedure Performed Yes -Type of Procedure Debridement -Clinical Debridement Subcutaneous -Tissue Removed Subcutaneous -Post Debridement (cm) - Length 1.5 -Post Debridement (cm) - Width 1.4 -Post Debridement (cm) - Depth 0.1 -Total Square (Post) (cm) 2.10 -Area of Debridement (cm) - Length 1.5 -Area of Debridement (cm) - Width 1.4 -Total Square (Area) (cm) 2.10 -Tunneling No -Undermining/Tunneling No -Circular Undermining No -Wound/Ulcer Outcome Not Healed -Ulcer Cleansing Rinsed/ Irrigated with Saline -Foul Odor after Cleansing No -Bioengineered Tissue Yes -Type of Bioengineered Tissue Epifix 18mm Disc -Expiration Date 01/12/26 -Product Lot Number [id number] -Percent Used 100 -Lot number of Saline Used [id number] -Bleeding Controlled with Pressure -Offloading No -Treatment Response Procedure Tolerated Well -Debridement - Subq, 1st 20sq cm No -Apply Skin Sub - 1st 25 sq cm - Feet 1 -Epifix 18mm Disc 3 Pain Scale: 0-10 Numeric Is Patient Pain Free? Yes WC - Nurse 3 - General Ulcer D/C NN Start: 03/16/21 12:07 Freq: Status: Active Protocol: Activity Type Activity Date Activity User E-Sign Co-Sign Detail Recorded Client Recorded Date Recorded By Document 04/08/21 09:31 [id number] 04/08/21 09:32 MS 04/08/21 09:31 Wound Care Nurse 3 #4- L PLANTAR 3RD TOE -Primary Dressing Applied Aquacel Extra -Primary Dressing Covered/Secured with Dry Gauze & Roll Gauze, Secured with Tape -Aquacel Extra 1 Pain Scale: 0-10 Numeric Is Patient Pain Free? Yes WC - Visit Discharge Discharge Condition Stable Ambulatory Status Ambulatory Transportation Private Auto Medication Reconcilliation completed & No provided to patient/care provider Clinical Summary of Care Provided Yes Assessment/Plan Assessment/Plan (1) Osteomyelitis of great toe of left foot: CODE(S): M86.9 - Osteomyelitis, unspecified (2) 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 (3) Diabetic foot ulcer associated with type 2 diabetes mellitus: CODE(S): E11.621 - Type 2 diabetes mellitus with foot ulcer; L97.509 - Non-pressure chronic ulcer of other part of unspecified foot with unspecified severity QUALIFIERS: Diabetic foot ulcer location: toe Laterality: left Non-pressure ulcer stage: with bone involvement without evidence of necrosis Qualified Code(s): E11.621 - Type 2 diabetes mellitus with foot ulcer; L97.526 - 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 involvement without evidence of necrosis PLAN: PLAN: Hyperbaric oxygen treatment which was administered as per the facility's per protocol at 90 tulio for 2 hours. Hyperbaric oxygen treatment was well-tolerated. Upon emerging from the hyperbaric oxygen chamber, his vitals remained stable and he was discharged in stable condition. He will continue hyperbaric oxygen treatment as per facility's protocol. The patient appears to be tolerating hyperbaric oxygen therapy well, which will be continued as per his comprehensive medical treatment plan.
== END 2021-04-13 23:59 ==
LOC: WC 10:00
PROVIDERS: PCP Family Medicine; Referring Provider Podiatrist Foot & Ankle Surgery; Visit Provider Nurse Practitioner
DX: E11.621 Type 2 diabetes mellitus with foot ulcer (principal); L89.892 Pressure ulcer of other site, stage 2; L97.526 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 involvement without evidence of necrosis; E11.69 Type 2 diabetes mellitus with other specified complication; M86.9 Osteomyelitis, unspecified
CPT/HCPCS: 15275; 82962; 99183; Q4186; G0277

== ENCOUNTER → 2021-05-05 09:52 | Outpatient (CLI) | payer MEDICARE, OTHER, SELFPAY ==
[2021-04-29 10:56] VITALS: BMI 31.8
[2021-05-05 10:00] VITALS: BP 138/66; PULSE 69; RESP 18; TEMP 35.8; O2SAT 98; BMI 31.2
[2021-05-05] MEDS: 0.9% NaCl Peripheral Flush Adult/Peds IV (10:17)
[2021-05-05] MEDS: 0.9% NaCl IVPB Med Flush (250 mL) 15 ML IV (10:35)
[2021-05-05] MEDS: DiphenhydrAMINE 50 MG/ML Syringe 12.5 MG IV (10:35)
== END ==
PROVIDERS: PCP Family Medicine; Referring Provider Family Medicine; Visit Provider Family Medicine
DX: M50.90 Cervical disc disorder, unspecified, unspecified cervical region (principal); L40.52 Psoriatic arthritis mutilans; L40.9 Psoriasis, unspecified; Z79.899 Other long term (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
CPT/HCPCS: 96365; 96366 ×2; 96375; J7050; A4216; Q5103

== ENCOUNTER 2021-05-13 09:30 | Outpatient (RCR) | payer MEDICARE, OTHER, SELFPAY ==
[2021-04-08 09:09] VITALS: BMI 31.8
[2021-04-14 00:34] VITALS: BP 152/79; PULSE 77; RESP 16; TEMP 36.6
[2021-04-14 11:27] VITALS: BP 147/72; BP 149/88; PULSE 70; PULSE 76; RESP 16; RESP 17; TEMP 36.7
[2021-04-14 11:39] LABS: Bedside Glucose 161 mg/dL (70-110)
[2021-04-14 12:11] LABS: Bedside Glucose 135 mg/dL (70-110)
--- NOTE | 2021-04-14 15:27 | HBO.PN.PCM_ITS ---
History of Present Illness Date of Service: 04/14/21 Chief Complaint: Non-healing left great toe plantar wound and left third toe plantar wound with osteomyelitis History of Wound: Mr Hatch Was referred here by his food service substitute due to nonhealing left great toe wound status post surgery. Surgery was on 25 March and per patient was uneventful however has had delayed healing of his surgical wound. He has been on a 3-week course of doxycycline History of diabetes mellitus and per patient his last A1c was 7.6. He reports compliance with his medication. Denies chills, fever or otherwise feeling of unwell at this time. X-ray back in July 2020 showed osteomyelitis of the left great toe since then he has developed open area on the plantar side of the third toe. Patient is undergoing treatment with advanced wound care as well as hyperbaric oxygen treatment to salvage his left foot. Subjective Subjective Today's hyperbaric oxygen session represents the 20th session of a planned 30 such sessions. Hyperbaric oxygen therapy was administered as per the facility's protocol. Hyperbaric oxygen therapy was administered at 2 tulio for 90 minutes with no air breaks. Patient tolerated hyperbaric oxygen therapy well, without complaints or complications. Upon emergence from the hyperbaric chamber, the patient's vital signs remained stable. The patient was discharged in good condition. Pre- and post- hyperbaric oxygen therapy blood glucose levels were documented elsewhere. Objective Data Objective Data Vital Signs: Vital Signs Temp Pulse Resp BP 98.1 F 70 17 147/72 H 04/14/21 11:27 04/14/21 11:27 04/14/21 11:27 04/14/21 11:27 Weight: 235 lb Body Mass Index (BMI) 31.8 Lab / Micro Data Labs: Laboratory Results - last 24 hr 04/14/21 04/14/21 09:55 12:07 POC Glucose 161 H 135 H Exam Physical Exam Const alert, no apparent distress and well nourished General Appearance: cooperative and well developed HEENT normocephalic Head and Scalp: atraumatic Eyes PERRL and EOMs intact bilaterally Resp normal respiratory effort, no use of accessory muscles and clear to auscultation bilaterally Effort and Inspection: able to speak in complete sentences Psych affect normal Appearance: grossly normal Assessment/Plan Assessment/Plan (1) Chronic osteomyelitis involving ankle and foot: CODE(S): M86.679 - Other chronic osteomyelitis, unspecified ankle and foot QUALIFIERS: Laterality: left Qualified Code(s): M86.672 - Other chronic osteomyelitis, left ankle and foot (2) Osteomyelitis of great toe of left foot: CODE(S): M86.9 - Osteomyelitis, unspecified (3) Nonhealing nonsurgical wound with fat layer exposed: CODE(S): T14.8XXA - Other injury of unspecified body region, initial encounter (4) 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 (5) Diabetic foot ulcer associated with type 2 diabetes mellitus: CODE(S): E11.621 - Type 2 diabetes mellitus with foot ulcer; L97.509 - Non-pressure chronic ulcer of other part of unspecified foot with unspecified severity QUALIFIERS: Diabetic foot ulcer location: toe Laterality: left Non-pressure ulcer stage: with bone involvement without evidence of necrosis Qualified Code(s): E11.621 - Type 2 diabetes mellitus with foot ulcer; L97.526 - 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 involvement without evidence of necrosis (6) Decubitus ulcer limited to breakdown of skin (stage 2): CODE(S): L89.92 - Pressure ulcer of unspecified site, stage 2 QUALIFIERS: Pressure injury location: toe Laterality: left Qualified Code(s): L89.892 - Pressure ulcer of other site, stage 2 (7) Secondary pulmonary arterial hypertension: CODE(S): I27.21 - Secondary pulmonary arterial hypertension (8) Diabetes mellitus: CODE(S): E11.9 - Type 2 diabetes mellitus without complications QUALIFIERS: Diabetes mellitus type: type 2 Diabetes mellitus [facility] insulin use: without laborer marine terminal use Diabetes mellitus complication status: with skin complications Diabetes mellitus complication detail: with foot ulcer Qualified Code(s): E11.621 - Type 2 diabetes mellitus with foot ulcer; L97.509 - Non-pressure chronic ulcer of other part of unspecified foot with unspecified severity (9) Body mass index 31.0-31.9, adult: CODE(S): Z68.31 - Body mass index [BMI] 31.0-31.9, adult (10) Hyperlipidemia: CODE(S): E78.5 - Hyperlipidemia, unspecified QUALIFIERS: Hyperlipidemia type: unspecified Qualified Code(s): E78.5 - Hyperlipidemia, unspecified (11) Paroxysmal ventricular tachycardia: CODE(S): I47.2 - Ventricular tachycardia (12) Ectopic atrial tachycardia: CODE(S): I47.1 - Supraventricular tachycardia (13) RAJESH (obstructive sleep apnea): CODE(S): G47.33 - Obstructive sleep apnea (adult) (pediatric) (14) Non-healing surgical wound: CODE(S): T81.89XA - Other complications of procedures, not elsewhere classified, initial encounter QUALIFIERS: Encounter type: subsequent encounter Qualified Code(s): T81.89XD - Other complications of procedures, not elsewhere classified, subsequent encounter PLAN: The patient appears to be tolerating hyperbaric oxygen therapy well, which will be continued as per the patient's medical plan.
[2021-04-15 09:01] VITALS: BP 166/75; PULSE 74; RESP 18; TEMP 36.2; BMI 31.8
[2021-04-15 09:45] LABS: Bedside Glucose 177 mg/dL (70-110)
[2021-04-15 11:03] VITALS: BP 155/74; BP 166/75; PULSE 74; PULSE 77; RESP 16; RESP 18; TEMP 36.2; TEMP 36.3
--- NOTE | 2021-04-15 11:46 | PCM.WC.PN ---
History of Present Illness Date of Service: 04/15/21 Chief Complaint: Non-healing left great toe plantar wound and left third toe plantar wound with osteomyelitis History of Wound: Mr Hatch Was referred here by his trade embalmer due to nonhealing left great toe wound status post surgery. Surgery was on 25 March and per patient was uneventful however has had delayed healing of his surgical wound. He has been on a 3-week course of doxycycline History of diabetes mellitus and per patient his last A1c was 7.6. He reports compliance with his medication. Denies chills, fever or otherwise feeling of unwell at this time. X-ray back in July 2020 showed osteomyelitis of the left great toe since then he has developed open area on the plantar side of the third toe. Patient is undergoing treatment with advanced wound care as well as hyperbaric oxygen treatment to salvage his left foot. Subjective Subjective feeling well with no c/o Objective Data Objective Data The base of the great toe is healing well. The 3rd toe plantar side isfilling wout well with the epifix .No signof infection and is smaller . Also tolerating HBO well Vital Signs: Vital Signs Temp Pulse Resp BP 97.2 F L 74 18 166/75 H 04/15/21 11:03 04/15/21 11:03 04/15/21 11:03 04/15/21 11:03 Weight: 235 lb Body Mass Index (BMI) 31.8 Lab / Micro Data Labs: Laboratory Results - last 24 hr 04/14/21 04/15/21 12:07 09:42 POC Glucose 135 H 177 H Physical Exam Const oriented x3 General Appearance: cooperative Exam Limitations: no limitations HEENT normocephalic Head and Scalp: normal to inspection Face and Sinus: normal facial exam Nose: external nose normal General Ear: hearing grossly impaired External Ear: external ears normal Mouth: oral and palatal mucosa normal Eyes PERRL General Eye: normal appearance of both eyes Neck full ROM General: normal visual inspection Resp normal respiratory effort Effort and Inspection: able to speak in complete sentences Auscultation: clear to auscultation bilaterally Cardio regular rate and regular rhythm Palpation: normal PMI Rate: regular rate Rhythm: regular rhythm GI Auscultation: normoactive bowel sounds Palpation: soft and no hepatosplenomegaly external exam normal Back/Spine Cervical Spine: cervical ROM normal Thoracic Spine / Upper Back: normal to inspection Lumbar Spine / Lower Back: normal to inspection Extremity normal to inspection General Extremity: normal exam except as noted Skin no rashes or lesions noted Neuro oriented x3 Psych Appearance: grossly normal Speech: normal speech Thought Content: normal thought content Judgement: judgement good Debridement Note Debridement Note Post-Debridement Measurements and Additional Note: Post-Debridement Measurements/Treatment JONNY - Nurse 1 - General Ulcer Assessment Start: 04/14/21 11:27 Freq: Status: Active Protocol: REMA Activity Type Activity Date Activity User E-Sign Co-Sign Detail Recorded Client Recorded Date Recorded By Document 04/15/21 09:01 PL [id number] 04/15/21 09:07 PL 04/15/21 09:01 WC - Today's Visit Information Type of service Follow-up Visit (Physician/RESPIRATORY THERAPY AIDE ) Arrival Mode Ambulatory Transfer Assistance None Patient Identification Verified (Name & Yes ) Patient Requires Transmission-Based No Precautions Safety Precautions NA Finger Stick Blood Sugar(mg/dl) (if 179 indicated): Blood Sugar Stated by Patient Height and Weight Body Mass Index (BMI) 31.8 BMI Classification Obese Vital Signs Temperature (97.8 F-99.1 F) 97.2 F L Temperature Source Temporal Pulse Rate (60-100) 74 Respiratory Rate (12-18) 18 Blood Pressure (90/60-120/80) 166/75 H Blood Pressure Mean (mm Hg) 105 History Since Last Visit- (Skip if this is Patient's initial visit) Have you changed medications since your No last visit? Any new allergies or adverse reactions No Had a fall/change in ADL's that may No increase risk of falls Signs or symptoms of abuse and/or No neglect since last visit Have you been in the hospital since your No last visit? Has dressing in place as prescribed Yes Has compression in place as prescribed N/A Has offloadiing in place as prescribed N/A Experienced any changes in pain level or No management - Nurse 1 - General Ulcer Measurement Start: 04/14/21 11:27 Freq: Status: Active Protocol: Activity Type Activity Date Activity User E-Sign Co-Sign Detail Recorded Client Recorded Date Recorded By Document 04/15/21 09:01 PL [id number] 04/15/21 09:07 PL 04/15/21 09:01 Wound Center Nurse 1 #4- L PLANTAR 3RD TOE -Combined with other wound No -Current Size (cm) - Length 1.5 -Current Size (cm) - Width 1.0 -Current Size (cm) - Depth 0.5 -Total Square Cm 1.50 -Photo Taken No -Epithelialization None Present -Tunneling No -Undermining/Tunneling No -Circular Undermining No -Exudate Amt Medium -Exudate Type Serosanguineous -Granulation Amt Large (67-100%) -Granulation Quality [place] -Slough/Fibrin Yes -Necrosis Amt Small (1-33%) -Necrotic Tissue Type Adherent Slough -Temperature (Angie-wound Skin No Abnormality Appearance) (Pt Warm) -Tenderness on Palpation (Angie-wound No Skin Appearance) -Ulcer Cleansing Rinsed/ Irrigated with Saline -Foul Odor after Cleansing No -Anesthetic Used 5% Lidocaine Gel WC - Nurse 2 - General Ulcer CM Notes Start: 04/14/21 11:27 Freq: Status: Active Protocol: Activity Type Activity Date Activity User E-Sign Co-Sign Detail Recorded Client Recorded Date Recorded By Document 04/15/21 09:30 MW [id number] 04/15/21 09:32 MW 04/15/21 09:30 Wound Center Nurse 2 -Time 09:20 -Correct Patient Yes -Correct Side, Site, Position Yes -Correct Procedure Yes -Procedure Performed Yes -Type of Procedure Debridement -Clinical Debridement Subcutaneous -Tissue Removed Subcutaneous -Post Debridement (cm) - Length 1.4 -Post Debridement (cm) - Width 1.2 -Post Debridement (cm) - Depth 0.2 -Total Square (Post) (cm) 1.68 -Area of Debridement (cm) - Length 1.4 -Area of Debridement (cm) - Width 1.2 -Total Square (Area) (cm) 1.68 -Tunneling No -Undermining/Tunneling No -Circular Undermining No -Wound/Ulcer Outcome Not Healed -Ulcer Cleansing Rinsed/ Irrigated with Saline -Foul Odor after Cleansing No -Bioengineered Tissue Yes -Type of Bioengineered Tissue Epifix 18mm Disc -Expiration Date 01/12/26 -Product Lot Number [id number] -Percent Used 100 -Lot number of Saline Used [id number] -Bleeding Controlled with Pressure -Offloading No -Treatment Response Procedure Tolerated Well -Debridement - Subq, 1st 20sq cm No -Apply Skin Sub - 1st 25 sq cm - Feet 1 -Epifix 18mm Disc 3 Pain Scale: 0-10 Numeric Is Patient Pain Free? Yes - Nurse 3 - General Ulcer D/C NN Start: 04/14/21 11:27 Freq: Status: Active Protocol: Activity Type Activity Date Activity User E-Sign Co-Sign Detail Recorded Client Recorded Date Recorded By Document 04/15/21 09:41 NEEMA [id number] 04/15/21 09:43 NEEMA 04/15/21 09:41 Wound Care Nurse 3 #4- L PLANTAR 3RD TOE -Primary Dressing Covered/Secured with Dry Gauze, Secured with Tape Pain Scale: 0-10 Numeric Is Patient Pain Free? Yes WC - Visit Discharge Discharge Condition Stable Ambulatory Status Ambulatory Transportation Private Auto Wound debrided: L 3rd tod plantar side Laterality: Left Wound Grade/Stage: barbara 2 Type of Debridement: Excisional debridement Anesthesia Used: 5% Lidocaine Gel Depth: in the subcutaneous layer Percentage of wound debrided: 100 Instrument Used: - (nippers) Tissue Removed: callus and maceration , and fibrin Severity: Limited To Skin Breakdown Amount of bleeding with debridement: Mild Bleeding Controlled with: Pressure Patient tolerated procedure: Patient tolerated procedure well Assessment/Plan Assessment/Plan (1) Nonhealing nonsurgical wound with fat layer exposed: CODE(S): T14.8XXA - Other injury of unspecified body region, initial encounter PLAN: continue the Epifix #7 to toe with wound veil and steri-stsrips over top leave dressing on and only change the outer dressing if needed (2) Osteomyelitis of great toe of left foot: CODE(S): M86.9 - Osteomyelitis, unspecified PLAN: continue the doxycycline ordered by Torres kaur and continue the HBO treatments (3) 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
[2021-04-15 12:06] LABS: Bedside Glucose 173 mg/dL (70-110)
--- NOTE | 2021-04-15 12:36 | PCM.HBO.PN ---
History of Present Illness Date of Service: 04/15/21 Chief Complaint: Non-healing left great toe plantar wound and left third toe plantar wound with osteomyelitis History of Wound: Mr Hatch Was referred here by his hide grader due to nonhealing left great toe wound status post surgery. Surgery was on 25 March and per patient was uneventful however has had delayed healing of his surgical wound. He has been on a 3-week course of doxycycline History of diabetes mellitus and per patient his last A1c was 7.6. He reports compliance with his medication. Denies chills, fever or otherwise feeling of unwell at this time. X-ray back in July 2020 showed osteomyelitis of the left great toe since then he has developed open area on the plantar side of the third toe. Patient is undergoing treatment with advanced wound care as well as hyperbaric oxygen treatment to salvage his left foot. Subjective Subjective No concerns at this time doing well Objective Data Objective Data Third toe healing well great toe healed patient feels well with no concerns vital signs have been stable blood sugars have been controlled. Vital Signs: Vital Signs Temp Pulse Resp BP 97.2 F L 74 18 166/75 H 04/15/21 11:03 04/15/21 11:03 04/15/21 11:03 04/15/21 11:03 Weight: 235 lb Body Mass Index (BMI) 31.8 Lab / Micro Data Labs: Laboratory Results - last 24 hr 04/15/21 04/15/21 09:42 12:01 POC Glucose 177 H 173 H Exam Nursing Assessment and Debridement Post-Debridement Measurements and Additional Note: Post-Debridement Measurements/Treatment - Nurse 1 - General Ulcer Assessment Start: 04/14/21 11:27 Freq: Status: Active Protocol: [email or web address] Activity Type Activity Date Activity User E-Sign Co-Sign Detail Recorded Client Recorded Date Recorded By Document 04/15/21 09:01 TY [id number] 04/15/21 09:07 PL 04/15/21 09:01 - Today's Visit Information Type of service Follow-up Visit (Physician/STAFF DEVELOPMENT COORDINATOR RN ) Arrival Mode Ambulatory Transfer Assistance None Patient Identification Verified (Name & Yes ) Patient Requires Transmission-Based No Precautions Safety Precautions NA Finger Stick Blood Sugar(mg/dl) (if 179 indicated): Blood Sugar Stated by Patient Height and Weight Body Mass Index (BMI) 31.8 BMI Classification Obese Vital Signs Temperature (97.8 F-99.1 F) 97.2 F L Temperature Source Temporal Pulse Rate (60-100 beats/min) 74 Respiratory Rate (12-18 breaths/min) 18 Blood Pressure (90/60-120/80 mm Hg) 166/75 H Blood Pressure Mean (mm Hg) 105 History Since Last Visit- (Skip if this is Patient's initial visit) Have you changed medications since your No last visit? Any new allergies or adverse reactions No Had a fall/change in ADL's that may No increase risk of falls Signs or symptoms of abuse and/or No neglect since last visit Have you been in the hospital since your No last visit? Has dressing in place as prescribed Yes Has compression in place as prescribed N/A Has offloadiing in place as prescribed N/A Experienced any changes in pain level or No management WC - Nurse 1 - General Ulcer Measurement Start: 04/14/21 11:27 Freq: Status: Active Protocol: Activity Type Activity Date Activity User E-Sign Co-Sign Detail Recorded Client Recorded Date Recorded By Document 04/15/21 09:01 PL [id number] 04/15/21 09:07 PL 04/15/21 09:01 Wound Center Nurse 1 #4- L PLANTAR 3RD TOE -Combined with other wound No -Current Size (cm) - Length 1.5 -Current Size (cm) - Width 1.0 -Current Size (cm) - Depth 0.5 -Total Square Cm 1.50 -Photo Taken No -Epithelialization None Present -Tunneling No -Undermining/Tunneling No -Circular Undermining No -Exudate Amt Medium -Exudate Type Serosanguineous -Granulation Amt Large (67-100%) -Granulation Quality [place] -Slough/Fibrin Yes -Necrosis Amt Small (1-33%) -Necrotic Tissue Type Adherent Slough -Temperature (Angie-wound Skin No Abnormality Appearance) (Pt Warm) -Tenderness on Palpation (Angie-wound No Skin Appearance) -Ulcer Cleansing Rinsed/ Irrigated with Saline -Foul Odor after Cleansing No -Anesthetic Used 5% Lidocaine Gel WC - Nurse 2 - General Ulcer CM Notes Start: 04/14/21 11:27 Freq: Status: Active Protocol: Activity Type Activity Date Activity User E-Sign Co-Sign Detail Recorded Client Recorded Date Recorded By Document 04/15/21 09:30 MW [id number] 04/15/21 09:32 MW 04/15/21 09:30 Wound Center Nurse 2 -Time 09:20 -Correct Patient Yes -Correct Side, Site, Position Yes -Correct Procedure Yes -Procedure Performed Yes -Type of Procedure Debridement -Clinical Debridement Subcutaneous -Tissue Removed Subcutaneous -Post Debridement (cm) - Length 1.4 -Post Debridement (cm) - Width 1.2 -Post Debridement (cm) - Depth 0.2 -Total Square (Post) (cm) 1.68 -Area of Debridement (cm) - Length 1.4 -Area of Debridement (cm) - Width 1.2 -Total Square (Area) (cm) 1.68 -Tunneling No -Undermining/Tunneling No -Circular Undermining No -Wound/Ulcer Outcome Not Healed -Ulcer Cleansing Rinsed/ Irrigated with Saline -Foul Odor after Cleansing No -Bioengineered Tissue Yes -Type of Bioengineered Tissue Epifix 18mm Disc -Expiration Date 01/12/26 -Product Lot Number [id number] -Percent Used 100 -Lot number of Saline Used [id number] -Bleeding Controlled with Pressure -Offloading No -Treatment Response Procedure Tolerated Well -Debridement - Subq, 1st 20sq cm No -Apply Skin Sub - 1st 25 sq cm - Feet 1 -Epifix 18mm Disc 3 Pain Scale: 0-10 Numeric Is Patient Pain Free? Yes - Nurse 3 - General Ulcer D/C NN Start: 04/14/21 11:27 Freq: Status: Active Protocol: Activity Type Activity Date Activity User E-Sign Co-Sign Detail Recorded Client Recorded Date Recorded By Document 04/15/21 09:41 NEEMA [id number] 04/15/21 09:43 NEEMA 04/15/21 09:41 Wound Care Nurse 3 #4- L PLANTAR 3RD TOE -Primary Dressing Covered/Secured with Dry Gauze, Secured with Tape Pain Scale: 0-10 Numeric Is Patient Pain Free? Yes - Visit Discharge Discharge Condition Stable Ambulatory Status Ambulatory Transportation Private Auto Assessment/Plan Assessment/Plan (1) Osteomyelitis of great toe of left foot: CODE(S): M86.9 - Osteomyelitis, unspecified PLAN: Continue HBO treatments and continue better sugar control and follow-up as scheduled for HBO
[2021-04-20 10:01] LABS: Bedside Glucose 185 mg/dL (70-110)
--- NOTE | 2021-04-20 10:58 | HBO.PN.PCM_ITS ---
History of Present Illness Date of Service: 04/20/21 Chief Complaint: Non-healing left great toe plantar wound and left third toe plantar wound with osteomyelitis History of Wound: Mr Hatch Was referred here by his small parts assembler due to nonhealing left great toe wound status post surgery. Surgery was on 25 March and per patient was uneventful however has had delayed healing of his surgical wound. He has been on a 3-week course of doxycycline History of diabetes mellitus and per patient his last A1c was 7.6. He reports compliance with his medication. Denies chills, fever or otherwise feeling of unwell at this time. X-ray back in July 2020 showed osteomyelitis of the left great toe since then he has developed open area on the plantar side of the third toe. Patient is undergoing treatment with advanced wound care as well as hyperbaric oxygen treatment to salvage his left foot. Subjective Subjective Today's hyperbaric oxygen session represents the 22nd session of a planned 30 such sessions. Hyperbaric oxygen therapy was administered as per the facility's protocol. Hyperbaric oxygen therapy was administered at 2 tulio for 90 minutes with no air breaks. Patient tolerated hyperbaric oxygen therapy well, without complaints or complications. Upon emergence from the hyperbaric chamber, the patient's vital signs remained stable. The patient was discharged in good condition. Pre- and post- hyperbaric oxygen therapy blood glucose levels were documented elsewhere. Objective Data Objective Data Vital Signs: Vital Signs Temp Pulse Resp BP 97.2 F L 74 18 166/75 H 04/15/21 11:03 04/15/21 11:03 04/15/21 11:03 04/15/21 11:03 Weight: 235 lb Body Mass Index (BMI) 31.8 Lab / Micro Data Labs: Laboratory Results - last 24 hr 04/20/21 09:55 POC Glucose 185 H Exam Physical Exam Const oriented x3 General Appearance: cooperative HEENT normocephalic Tympanic Membrane: TM's normal bilaterally Neck General: normal visual inspection Resp normal respiratory effort Effort and Inspection: able to speak in complete sentences Auscultation: clear to auscultation bilaterally Cardio regular rate and regular rhythm Rate: regular rate Rhythm: regular rhythm GI Palpation: soft Neuro oriented x3 Psych Appearance: grossly normal Speech: normal speech Thought Content: normal thought content Judgement: judgement good Assessment/Plan Assessment/Plan (1) Osteomyelitis of great toe of left foot: CODE(S): M86.9 - Osteomyelitis, unspecified PLAN: The patient appears to be tolerating hyperbaric oxygen therapy well, which will be continued as per his medical plan.
[2021-04-20 11:33] VITALS: BP 142/96; PULSE 65; PULSE 66; RESP 16; RESP 17; TEMP 36.7; TEMP 36.8
[2021-04-20 12:26] LABS: Bedside Glucose 143 mg/dL (70-110)
[2021-04-21 10:00] LABS: Bedside Glucose 156 mg/dL (70-110)
[2021-04-21 12:36] LABS: Bedside Glucose 149 mg/dL (70-110)
[2021-04-21 12:38] VITALS: BP 136/69; BP 153/93; PULSE 65; PULSE 79; RESP 17; RESP 18; TEMP 36.8
--- NOTE | 2021-04-21 14:43 | HBO.PN.PCM_ITS ---
History of Present Illness Date of Service: 04/21/21 Chief Complaint: Non-healing left great toe plantar wound and left third toe plantar wound with osteomyelitis History of Wound: Mr Hatch Was referred here by his roller leveler operator due to nonhealing left great toe wound status post surgery. Surgery was on 25 March and per patient was uneventful however has had delayed healing of his surgical wound. He has been on a 3-week course of doxycycline History of diabetes mellitus and per patient his last A1c was 7.6. He reports compliance with his medication. Denies chills, fever or otherwise feeling of unwell at this time. X-ray back in July 2020 showed osteomyelitis of the left great toe since then he has developed open area on the plantar side of the third toe. Patient is undergoing treatment with advanced wound care as well as hyperbaric oxygen treatment to salvage his left foot. Subjective Subjective Today's hyperbaric oxygen session represents the 22nd session of a planned 30 such sessions. Hyperbaric oxygen therapy was administered as per the facility's protocol. Hyperbaric oxygen therapy was administered at 2 tulio for 90 minutes with no air breaks. Patient tolerated hyperbaric oxygen therapy well, without complaints or complications. Upon emergence from the hyperbaric chamber, the patient's vital signs remained stable. The patient did experience bilateral ear pain on descent, however he did not report this to the industrial waste treatment technician. 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 He has been referred to research animal attendant for evaluation. Pre- and post- hyperbaric oxygen therapy blood glucose levels were documented elsewhere. Objective Data Objective Data Vital Signs: Vital Signs Temp Pulse Resp BP 98.3 F 65 18 136/69 H 04/21/21 12:38 04/21/21 12:38 04/21/21 12:38 04/21/21 12:38 Weight: 235 lb Body Mass Index (BMI) 31.8 Lab / Micro Data Labs: Laboratory Results - last 24 hr 04/21/21 04/21/21 09:58 12:26 POC Glucose 156 H 149 H Exam Physical Exam Const oriented x3 General Appearance: cooperative HEENT normocephalic Tympanic Membrane: TM's normal bilaterally Neck General: normal visual inspection Resp normal respiratory effort Effort and Inspection: able to speak in complete sentences Auscultation: clear to auscultation bilaterally Cardio Negative for regular rate or regular rhythm Rate: regular rate Rhythm: regular rhythm GI Palpation: soft Neuro oriented x3 Psych Appearance: grossly normal Speech: normal speech Thought Content: normal thought content Judgement: judgement good Assessment/Plan Assessment/Plan (1) Osteomyelitis of great toe of left foot: CODE(S): M86.9 - Osteomyelitis, unspecified PLAN: Patient has experienced bilateral barotrauma to the tympanic membran es of varying degrees. Sending him to research animal attendant for evaluation and treatment. Hyperbaric oxygen therapy on hold until cleared by ear nose and throat specialty.
[2021-04-22 09:13] VITALS: BP 174/80; PULSE 61; RESP 17; TEMP 36.6; BMI 31.8
--- NOTE | 2021-04-22 12:47 | PN.PCM_ITS ---
History of Present Illness Date of Service: 04/22/21 Chief Complaint: Non-healing left great toe plantar wound and left third toe plantar wound with osteomyelitis History of Wound: Mr Hatch Was referred here by his mathematical physicist due to nonhealing left great toe wound status post surgery. Surgery was on 25 March and per patient was uneventful however has had delayed healing of his surgical wound. He has been on a 3-week course of doxycycline History of diabetes mellitus and per patient his last A1c was 7.6. He reports compliance with his medication. Denies chills, fever or otherwise feeling of unwell at this time. X-ray back in July 2020 showed osteomyelitis of the left great toe since then he has developed open area on the plantar side of the third toe. Patient is undergoing treatment with advanced wound care as well as hyperbaric oxygen treatment to salvage his left foot. Subjective Subjective no concerns ,Needs tubes and is not diving today Objective Data Objective Data Vital Signs: Vital Signs Temp Pulse Resp BP 97.8 F 61 17 174/80 H 04/22/21 09:13 04/22/21 09:13 04/22/21 09:13 04/22/21 09:13 Weight: 235 lb Body Mass Index (BMI) 31.8 Physical Exam Const oriented x3 General Appearance: cooperative Exam Limitations: no limitations HEENT normocephalic Head and Scalp: normal to inspection Face and Sinus: normal facial exam Nose: external nose normal General Ear: hearing grossly impaired External Ear: external ears normal Mouth: oral and palatal mucosa normal Eyes PERRL General Eye: normal appearance of both eyes Neck full ROM General: normal visual inspection Resp normal respiratory effort Effort and Inspection: able to speak in complete sentences Auscultation: clear to auscultation bilaterally Cardio regular rate and regular rhythm Palpation: normal PMI Rate: regular rate Rhythm: regular rhythm GI Auscultation: normoactive bowel sounds Palpation: soft and no hepatosplenomegaly external exam normal Back/Spine Cervical Spine: cervical ROM normal Thoracic Spine / Upper Back: normal to inspection Lumbar Spine / Lower Back: normal to inspection Extremity normal to inspection General Extremity: normal exam except as noted Skin no rashes or lesions noted Neuro oriented x3 Psych Appearance: grossly normal Speech: normal speech Thought Content: normal thought content Judgement: judgement good Debridement Note Debridement Note Post-Debridement Measurements and Additional Note: Post-Debridement Measurements/Treatment WC - Nurse 1 - General Ulcer Assessment Start: 04/14/21 11:27 Freq: Status: Active Protocol: REMA Activity Type Activity Date Activity User E-Sign Co-Sign Detail Recorded Client Recorded Date Recorded By Document 04/15/21 09:01 PL [id number] 04/15/21 09:07 PL Document 04/22/21 09:13 MS [id number] 04/22/21 09:23 MS 04/15/21 04/22/21 09:01 09:13 WC - Today's Visit Information Type of service Follow-up Visit Follow-up Visit (Physician/ADHESIVE BANDAGE MACHINE OPERATOR (Physician/ADHESIVE BANDAGE MACHINE OPERATOR ) ) Arrival Mode Ambulatory Ambulatory Transfer Assistance None None Patient Identification Verified (Name & Yes Yes ) Patient Requires Transmission-Based No No Precautions Safety Precautions NA NA Finger Stick Blood Sugar(mg/dl) (if 179 148 indicated): Blood Sugar Stated by Stated by Patient Patient Height and Weight Body Mass Index (BMI) 31.8 31.8 BMI Classification Obese Obese Vital Signs Temperature (97.8 F-99.1 F) 97.2 F L 97.8 F Temperature Source Temporal Temporal Pulse Rate (60-100) 74 61 Pulse Location Monitor Respiratory Rate (12-18) 18 17 Respiratory rate source Observation Blood Pressure (90/60-120/80) 166/75 H 174/80 H Blood Pressure Mean (mm Hg) 105 111 Source Monitor Position Sitting Blood Pressure Location Left Arm History Since Last Visit- (Skip if this is Patient's initial visit) Have you changed medications since your No No last visit? Any new allergies or adverse reactions No No Had a fall/change in ADL's that may No No increase risk of falls Signs or symptoms of abuse and/or No No neglect since last visit Have you been in the hospital since your No No last visit? Has dressing in place as prescribed Yes Yes Has compression in place as prescribed N/A N/A Has offloadiing in place as prescribed N/A N/A Experienced any changes in pain level or No No management Left Footwear Regular Shoe Right Footwear Regular Shoe Pain Scale: 0-10 Numeric Is Patient Pain Free? Yes - Nurse 1 - General Ulcer Measurement Start: 04/14/21 11:27 Freq: Status: Active Protocol: Activity Type Activity Date Activity User E-Sign Co-Sign Detail Recorded Client Recorded Date Recorded By Document 04/15/21 09:01 PL [id number] 04/15/21 09:07 PL Document 04/22/21 09:13 MS [id number] 04/22/21 09:23 MS 04/15/21 04/22/21 09:01 09:13 Wound Center Nurse 1 #4- L PLANTAR 3RD TOE -Combined with other wound No -Current Size (cm) - Length 1.5 1 -Current Size (cm) - Width 1.0 1.5 -Current Size (cm) - Depth 0.5 0.2 -Total Square Cm 1.50 1.5 -Photo Taken No -Epithelialization None Present -Tunneling No -Undermining/Tunneling No -Circular Undermining No -Exudate Amt Medium Small -Exudate Type Serosanguineous Serosanguineous -Wound Margin Distinct, Outline Attached -Granulation Amt Large (67-100%) Medium (34-66%) -Granulation Quality [place] -Slough/Fibrin Yes -Necrosis Amt Small (1-33%) Medium (34-66%) -Necrotic Tissue Type Adherent Slough Adherent Slough -Texture (Angie-wound Skin Appearance) No Abnormality -Moisture (Angie-wound Skin Appearance) Maceration -Color (Angie-wound Skin Appearance) No Abnormality -Temperature (Angie-wound Skin No Abnormality No Abnormality Appearance) (Pt Warm) (Pt Warm) -Tenderness on Palpation (Angie-wound No Skin Appearance) -Ulcer Cleansing Rinsed/ Wound Cleanser Irrigated with Saline -Foul Odor after Cleansing No No -Anesthetic Used 5% Lidocaine 4% Lidocaine Gel Solution WC - Nurse 2 - General Ulcer CM Notes Start: 04/14/21 11:27 Freq: Status: Active Protocol: Activity Type Activity Date Activity User E-Sign Co-Sign Detail Recorded Client Recorded Date Recorded By Document 04/15/21 09:30 MW [id number] 04/15/21 09:32 MW Document 04/22/21 10:00 MW [id number] 04/22/21 12:18 MW 04/15/21 04/22/21 09:30 10:00 Wound Center Nurse 2 #4- L PLANTAR 3RD TOE -Time 09:20 10:00 -Correct Patient Yes Yes -Correct Side, Site, Position Yes Yes -Correct Procedure Yes Yes -Procedure Performed Yes Yes -Type of Procedure Debridement Debridement -Clinical Debridement Subcutaneous Subcutaneous -Tissue Removed Subcutaneous Subcutaneous -Post Debridement (cm) - Length 1.4 1.3 -Post Debridement (cm) - Width 1.2 1.3 -Post Debridement (cm) - Depth 0.2 0.2 -Total Square (Post) (cm) 1.68 1.69 -Area of Debridement (cm) - Length 1.4 1.3 -Area of Debridement (cm) - Width 1.2 1.3 -Total Square (Area) (cm) 1.68 1.69 -Tunneling No No -Undermining/Tunneling No No -Circular Undermining No No -Wound/Ulcer Outcome Not Healed Not Healed -Ulcer Cleansing Rinsed/ Rinsed/ Irrigated with Irrigated with Saline Saline -Foul Odor after Cleansing No No -Bioengineered Tissue Yes Yes -Type of Bioengineered Tissue Epifix 18mm Epifix 18mm Disc Disc -Expiration Date 01/12/26 01/12/26 -Product Lot Number [id number] -Percent Used 100 100 -Lot number of Saline Used [id number] -Bleeding Controlled with Pressure Pressure -Offloading No No -Treatment Response Procedure Procedure Tolerated Well Tolerated Well -Debridement - Subq, 1st 20sq cm No No -Apply Skin Sub - 1st 25 sq cm - Feet 1 1 -Epifix 18mm Disc 3 3 Pain Scale: 0-10 Numeric Is Patient Pain Free? Yes Yes - Nurse 3 - General Ulcer D/C NN Start: 04/14/21 11:27 Freq: Status: Active Protocol: Activity Type Activity Date Activity User E-Sign Co-Sign Detail Recorded Client Recorded Date Recorded By Document 04/15/21 09:41 KR [id number] 04/15/21 09:43 KR Document 04/22/21 10:09 MS [id number] 04/22/21 10:10 HI 04/15/21 04/22/21 09:41 10:09 Wound Care Nurse 3 #4- L PLANTAR 3RD TOE -Primary Dressing Applied Aquacel Extra -Primary Dressing Covered/Secured with Dry Gauze, Dry Gauze, Secured with Secured with Tape Tape -Aquacel Extra 1 Pain Scale: 0-10 Numeric Is Patient Pain Free? Yes Yes - Visit Discharge Discharge Condition Stable Stable Ambulatory Status Ambulatory Ambulatory Transportation Private Auto Private Auto Medication Reconcilliation completed & No provided to patient/care provider Clinical Summary of Care Provided Yes Wound debrided: L 3rd toe plabntar side Laterality: Left Wound Grade/Stage: stage 3 Type of Debridement: Excisional debridement Anesthesia Used: 5% Lidocaine Gel Depth: Down to and including healthy tissue Percentage of wound debrided: 100 Instrument Used: 5mm curette Tissue Removed: callus and fibrin Severity: Limited To Skin Breakdown Amount of bleeding with debridement: Mild Bleeding Controlled with: Pressure Patient tolerated procedure: Patient tolerated procedure well Assessment/Plan Assessment/Plan (1) Osteomyelitis of great toe of left foot: CODE(S): M86.9 - Osteomyelitis, unspecified PLAN: continue HBO treatments (2) Nonhealing nonsurgical wound with fat layer exposed: CODE(S): T14.8XXA - Other injury of unspecified body region, initial encounter PLAN: Epifix #8 applied to toe with wound veil and ster-strips applied covered with gauze dressing follow up 1 week leave the dressing alone only change the outer dressing as needed (3) 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
[2021-04-27 10:16] LABS: Bedside Glucose 172 mg/dL (70-110)
--- NOTE | 2021-04-27 10:20 | HBO.PN.PCM_ITS ---
History of Present Illness Date of Service: 04/27/21 Chief Complaint: Non-healing left great toe plantar wound and left third toe plantar wound with osteomyelitis History of Wound: Mr Hatch Was referred here by his emergency medical technician due to nonhealing left great toe wound status post surgery. Surgery was on 25 March and per patient was uneventful however has had delayed healing of his surgical wound. He has been on a 3-week course of doxycycline History of diabetes mellitus and per patient his last A1c was 7.6. He reports compliance with his medication. Denies chills, fever or otherwise feeling of unwell at this time. X-ray back in July 2020 showed osteomyelitis of the left great toe since then he has developed open area on the plantar side of the third toe. Patient is undergoing treatment with advanced wound care as well as hyperbaric oxygen treatment to salvage his left foot. Subjective Subjective Today's hyperbaric oxygen session represents the 24th session of a planned 30 such sessions. Hyperbaric oxygen therapy was administered as per the facility's protocol. Recently placed bilateral eustachian tubes intact. Plan of treatment was for hyperbaric oxygen therapy to be administered at 2 CLAY for 90 minutes with no air breaks. After only a few minutes in the chamber, the patient had not even reached depth, she was experiencing severe head pain and the treatment was terminated. The patient was brought back up to level and out of the tube. The patient was complaining of left-sided frontal sinus pain. He initially had rated it a 7 out of 10. It began to dissipate almost immediately after being removed from the hyperbaric oxygen chamber. By the time that I was contacted for an update the patient states that his pain had almost completely gone away. Vital signs remained stable, see documented. Also see blood glucose levels documented elsewhere. The patient was then seen by another provider at the wound center, please see that progress note for additional information. Objective Data Objective Data Vital Signs: Vital Signs Temp Pulse Resp BP 98.3 F 81 16 131/75 H 04/27/21 11:22 04/27/21 11:22 04/27/21 11:22 04/27/21 11:22 Weight: 235 lb Body Mass Index (BMI) 31.8 Lab / Micro Data Labs: Laboratory Results - last 24 hr 04/27/21 10:11 POC Glucose 172 H Exam Physical Exam Const oriented x3 General Appearance: cooperative HEENT normocephalic Tympanic Membrane: TM's normal bilaterally Neck General: normal visual inspection Resp normal respiratory effort Effort and Inspection: able to speak in complete sentences Auscultation: clear to auscultation bilaterally Cardio Negative for regular rate or regular rhythm Rate: regular rate Rhythm: regular rhythm GI Palpation: soft Neuro oriented x3 Psych Appearance: grossly normal Speech: normal speech Thought Content: normal thought content Judgement: judgement good Assessment/Plan Assessment/Plan (1) Osteomyelitis of great toe of left foot: CODE(S): M86.9 - Osteomyelitis, unspecified PLAN: The patient was not able to complete hyperbaric oxygen therapy today. May resume per the patient's medical plan once cleared by his primary care provider. (2) Frontal sinus pain: CODE(S): J34.89 - Other specified disorders of nose and nasal sinuses PLAN: Acute. The patient was encouraged to be evaluated in the emergency department. To which he declined. I did contact his primary care provider and made him aware of the situation today. The primary care provider reports that he is going to contact gluing machine offbearer to have the patient follow-up with him. Defer further management of the symptoms to PCP.
[2021-04-27 11:22] VITALS: BP 131/75; BP 158/73; PULSE 77; PULSE 81; RESP 16; TEMP 36.8
--- NOTE | 2021-04-27 19:54 | PN_ITS ---
Progress Note Patient was receiving HBO therapy when he developed a severe left frontal forehead pain. The pain remained until he was out of the chamber. Once he was out of the chamber, he no longer had the pain. I was asked to evaluate the patient and do an assessment. Physical Exam Const alert, oriented x3 and no apparent distress General Appearance: cooperative and well kempt Orientation / Consciousness: awake Exam Limitations: no limitations HEENT normocephalic, head/scalp atraumatic, hearing grossly normal bilaterally and oropharynx normal HEENT Narrative: Bilateral ear tubes in place. Patient wears dentures. Head and Scalp: normocephalic and atraumatic; Negative for occipital foramen ten derness or scalp tenderness Face and Sinus: normal facial exam and face symmetric; Negative for sinuses nontender or sinus tenderness Nose: external nose normal and nares normal External Ear: external ears normal Mouth: oral and palatal mucosa normal, lips normal and tongue normal Eyes PERRL and EOMs intact bilaterally General Eye: normal appearance of both eyes and normal light reflex Visual Acuity: acuity normal Visual Field: No peripheral vision loss Eyelid: eyelids normal Conjunctiva: conjunctiva normal Sclera: sclera normal Pupil: PERRL, accommodation reflex normal, pupil size - right Right Pupil Size: 0.16 in and pupil size - left Left Pupil Size: 0.16 in Neck full ROM Chest Chest: abnormal inspection of the chest Resp normal respiratory effort, normal air movement and no use of accessory muscles Auscultation: clear to auscultation bilaterally Cardio regular rate and regular rhythm GI normal to inspection, nondistended, normoactive bowel sounds and soft to palpation Back/Spine Cervical Spine: cervical ROM normal Extremity normal to inspection and full ROM Neuro oriented x3, CN's II-XII intact bilaterally, moves all extremities, no focal motor deficits and gait normal Sensorium / Orientation: awake and alert; Negative for orientation impaired or confused Speech: speech normal Gait (Neuro): normal gait Motor Exam: strength 5/5 throughout, muscle tone normal throughout, no pronator drift and no tremor Pupil Exam: Normal Pupillary Reactivity/Response: bilateral Right Pupil Size (mm): 4 Left Pupil Size (mm): 4 Psych mental status grossly normal, thought process normal, cooperative, affect normal, speech normal, activity/motor behavior normal, denies hallucinations and denies suicidal ideation Appearance: grossly normal, appropriate and well kempt Attitude: calm Activity / Motor Behavior: appropriate eye contact Speech: normal speech Mood & Affect: Negative for depressed Thought Process: normal thought process Thought Content: normal thought content Attention / Concentration: attention grossly intact and concentration grossly intact Memory / Cognition: memory grossly intact and cognition grossly intact Insight: insight good Judgement: judgement good Assessment & Plan Assessment/Plan (1) 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 Patient refuses to go. Spoke with Tomasa Banuelos CNP who assessed the patient before he was placed in the HBO chamber. She states she will notify his PCP, Dr. Turner. After the patient refused to go to the ED, discussed that he is to seek further evaluation if he has any headache, dizziness, nausea, vomiting diarrhea. Alteration in mental status, one side weakness, change in mental status, for difficulty speaking/swallowing. Patient verbalized understanding. Instructed patient to follow up with his PCP for further evaluation. Visit Charges Office Visits / Consults: [id number] OV L3 Est
[2021-04-28 10:45] LABS: Bedside Glucose 147 mg/dL (70-110)
[2021-04-28 10:45] LABS: Bedside Glucose 129 mg/dL (70-110)
[2021-04-28 10:57] VITALS: BP 138/82; BP 155/82; PULSE 74; PULSE 98; RESP 16; TEMP 36.7; TEMP 36.8
--- NOTE | 2021-04-28 16:38 | PCM.HBO.PN ---
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 Surgery was on 25 March and per patient was uneventful however has had delayed healing of his surgical wound. He has been on a 3-week course of doxycycline History of diabetes mellitus and per patient his last A1c was 7.6. He reports compliance with his medication. Denies chills, fever or otherwise feeling of unwell at this time. X-ray back in July 2020 showed osteomyelitis of the left great toe since then he has developed open area on the plantar side of the third toe. Patient is undergoing treatment with advanced wound care as well as hyperbaric oxygen treatment to salvage his left foot. Progress of Wound: Today's hyperbaric oxygen session represents the 25th session of a planned 30 such sessions. Hyperbaric oxygen therapy was administered as per the facility's protocol. Recently placed bilateral eustachian tubes intact. Plan of treatment was for hyperbaric oxygen therapy to be administered at 2 CLAY for 90 minutes with no air breaks. Yesterday, the patient's hyperbaric oxygen therapy session was terminated early due to complaints of pain in the left supraorbital area. Concern at that time was that this may be related to a frontal sinus issue. The patient returns today for his next session of hyperbaric oxygen therapy. After only a few minutes in the chamber, the patient had not even reached depth, and he was again experiencing pain in the left supraorbital area. The patient was brought back up to level and out of the chamber. The patient was complaining of left-sided frontal sinus pain. It began to dissipate almost immediately after being removed from the hyperbaric oxygen chamber. Vital signs remained stable. Blood glucose levels are documented elsewhere. The patient's hyperbaric oxygen sessions are now to be placed on hold until the patient can be evaluated by his ENT physician within the next several days. Objective Data Objective Data Vital Signs: Vital Signs Temp Pulse Resp BP 98.2 F 98 16 155/82 H 04/28/21 10:57 04/28/21 10:57 04/28/21 10:57 04/28/21 10:57 Weight: 235 lb Body Mass Index (BMI) 31.8 Lab / Micro Data Labs: Laboratory Results - last 24 hr 04/28/21 04/28/21 09:58 10:13 POC Glucose 129 H 147 H Exam Physical Exam Const alert, oriented x3 and well nourished General Appearance: cooperative and well developed HEENT normocephalic Head and Scalp: atraumatic Eyes PERRL and EOMs intact bilaterally Resp normal respiratory effort and no use of accessory muscles Effort and Inspection: able to speak in complete sentences Psych affect normal Appearance: grossly normal and well kempt Assessment/Plan Assessment/Plan (1) Acute osteomyelitis involving ankle and foot: CODE(S): M86.179 - Other acute osteomyelitis, unspecified ankle and foot (2) Chronic osteomyelitis involving ankle and foot: CODE(S): M86.679 - Other chronic osteomyelitis, unspecified ankle and foot QUALIFIERS: Laterality: left Qualified Code(s): M86.672 - Other chronic osteomyelitis, left ankle and foot (3) Frontal sinus pain: CODE(S): J34.89 - Other specified disorders of nose and nasal sinuses (4) Nonhealing nonsurgical wound with fat layer exposed: CODE(S): T14.8XXA - Other injury of unspecified body region, initial encounter (5) Osteomyelitis of great toe of left foot: CODE(S): M86.9 - Osteomyelitis, unspecified (6) 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 (7) Diabetic foot ulcer associated with type 2 diabetes mellitus: CODE(S): E11.621 - Type 2 diabetes mellitus with foot ulcer; L97.509 - Non-pressure chronic ulcer of other part of unspecified foot with unspecified severity QUALIFIERS: Diabetic foot ulcer location: toe Laterality: left Non-pressure ulcer stage: with bone involvement without evidence of necrosis Qualified Code(s): E11.621 - Type 2 diabetes mellitus with foot ulcer; L97.526 - 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 involvement without evidence of necrosis (8) Decubitus ulcer limited to breakdown of skin (stage 2): CODE(S): L89.92 - Pressure ulcer of unspecified site, stage 2 QUALIFIERS: Pressure injury location: toe Laterality: left Qualified Code(s): L89.892 - Pressure ulcer of other site, stage 2 (9) Non-healing surgical wound: CODE(S): T81.89XA - Other complications of procedures, not elsewhere classified, initial encounter QUALIFIERS: Encounter type: subsequent encounter Qualified Code(s): T81.89XD - Other complications of procedures, not elsewhere classified, subsequent encounter (10) Essential hypertension: CODE(S): I10 - Essential (primary) hypertension (11) RAJESH (obstructive sleep apnea): CODE(S): G47.33 - Obstructive sleep apnea (adult) (pediatric) (12) Paroxysmal ventricular tachycardia: CODE(S): I47.2 - Ventricular tachycardia (13) Premature atrial contractions: CODE(S): I49.1 - Atrial premature depolarization (14) Hyperlipidemia: CODE(S): E78.5 - Hyperlipidemia, unspecified QUALIFIERS: Hyperlipidemia type: unspecified Qualified Code(s): E78.5 - Hyperlipidemia, unspecified (15) Diabetes mellitus: CODE(S): E11.9 - Type 2 diabetes mellitus without complications QUALIFIERS: Diabetes mellitus type: type 2 Diabetes mellitus senior care insulin use: without 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 Wyatt, ENT specialist, within the next several days, prior to continuation of his hyperbaric oxygen therapy sessions.
[2021-04-29 10:56] VITALS: RESP 16; TEMP 36.3; BMI 31.8
--- NOTE | 2021-04-29 12:57 | PCM.WC.PN ---
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 Surgery was on 25 March and per patient was uneventful however has had delayed healing of his surgical wound. He has been on a 3-week course of doxycycline History of diabetes mellitus and per patient his last A1c was 7.6. He reports compliance with his medication. Denies chills, fever or otherwise feeling of unwell at this time. X-ray back in July 2020 showed osteomyelitis of the left great toe since then he has developed open area on the plantar side of the third toe. Patient is undergoing treatment with advanced wound care as well as hyperbaric oxygen treatment to salvage his left foot. Progress of Wound: Today's hyperbaric oxygen session represents the 25th session of a planned 30 such sessions. Hyperbaric oxygen therapy was administered as per the facility's protocol. Recently placed bilateral eustachian tubes intact. Plan of treatment was for hyperbaric oxygen therapy to be administered at 2 CLAY for 90 minutes with no air breaks. Yesterday, the patient's hyperbaric oxygen therapy session was terminated early due to complaints of pain in the left supraorbital area. Concern at that time was that this may be related to a frontal sinus issue. The patient returns today for his next session of hyperbaric oxygen therapy. After only a few minutes in the chamber, the patient had not even reached depth, and he was again experiencing pain in the left supraorbital area. The patient was brought back up to level and out of the chamber. The patient was complaining of left-sided frontal sinus pain. It began to dissipate almost immediately after being removed from the hyperbaric oxygen chamber. Vital signs remained stable. Blood glucose levels are documented elsewhere. The patient's hyperbaric oxygen sessions are now to be placed on hold until the patient can be evaluated by his ENT physician within the next several days. Subjective Subjective unable to do HBO because of severe headaches after tube placements . Still taking his antibiotics Objective Data Objective Data The skin is flatter and the top of the 3rd toe is filling in well. the bottom half still open and has depth developed more macerated edge removed with nippers .No sign of infection Epi-fix #9 applied tolerated well Vital Signs: Vital Signs Temp Pulse Resp BP 97.3 F L 98 16 155/82 H 04/29/21 10:56 04/28/21 10:57 04/29/21 10:56 04/28/21 10:57 Oxygen Delivery Method Room Air Weight: 235 lb Body Mass Index (BMI) 31.8 Physical Exam Const oriented x3 General Appearance: cooperative Exam Limitations: no limitations HEENT normocephalic Head and Scalp: normal to inspection Face and Sinus: normal facial exam Nose: external nose normal General Ear: hearing grossly impaired External Ear: external ears normal Mouth: oral and palatal mucosa normal Eyes PERRL General Eye: normal appearance of both eyes Neck full ROM General: normal visual inspection Resp normal respiratory effort Effort and Inspection: able to speak in complete sentences Auscultation: clear to auscultation bilaterally Cardio regular rate and regular rhythm Palpation: normal PMI Rate: regular rate Rhythm: regular rhythm GI Auscultation: normoactive bowel sounds Palpation: soft and no hepatosplenomegaly external exam normal Back/Spine Cervical Spine: cervical ROM normal Thoracic Spine / Upper Back: normal to inspection Lumbar Spine / Lower Back: normal to inspection Extremity normal to inspection General Extremity: normal exam except as noted Skin no rashes or lesions noted Neuro oriented x3 Psych Appearance: grossly normal Speech: normal speech Thought Content: normal thought content Judgement: judgement good Debridement Note Debridement Note Post-Debridement Measurements and Additional Note: Post-Debridement Measurements/Treatment - Nurse 1 - General Ulcer Assessment Start: 04/14/21 11:27 Freq: Status: Active Protocol: REMA Activity Type Activity Date Activity User E-Sign Co-Sign Detail Recorded Client Recorded Date Recorded By Document 04/15/21 09:01 PL [id number] 04/15/21 09:07 PL Document 04/22/21 09:13 MS [id number] 04/22/21 09:23 MS Document 04/29/21 10:56 [facility] [id number] 04/29/21 11:05 [facility] 04/15/21 04/22/21 04/29/21 09:01 09:13 10:56 - Today's Visit Information Type of service Follow-up Visit Follow-up Visit Follow-up Visit (Physician/MARINE CHRONOMETER ASSEMBLER (Physician/MARINE CHRONOMETER ASSEMBLER (Physician/MARINE CHRONOMETER ASSEMBLER ) ) ) Arrival Mode Ambulatory Ambulatory Ambulatory Transfer Assistance None None None Patient Identification Verified (Name & Yes Yes Yes ) Patient Requires Transmission-Based No No No Precautions Safety Precautions NA NA Finger Stick Blood Sugar(mg/dl) (if 179 148 indicated): Blood Sugar Stated by Stated by Patient Patient Height and Weight Body Mass Index (BMI) 31.8 31.8 31.8 BMI Classification Obese Obese Obese Vital Signs Temperature (97.8 F-99.1 F) 97.2 F L 97.8 F 97.3 F L Temperature Source Temporal Temporal Temporal Pulse Rate (60-100) 74 61 Pulse Location Monitor Monitor Respiratory Rate (12-18) 18 17 16 Respiratory rate source Observation Observation Oxygen Delivery Method Room Air Blood Pressure (90/60-120/80) 166/75 H 174/80 H Blood Pressure Mean (mm Hg) 105 111 Source Monitor Monitor Position Sitting Sitting Blood Pressure Location Left Arm Left Arm History Since Last Visit- (Skip if this is Patient's initial visit) Have you changed medications since your No No No last visit? Any new allergies or adverse reactions No No No Had a fall/change in ADL's that may No No No increase risk of falls Signs or symptoms of abuse and/or No No No neglect since last visit Have you been in the hospital since your No No No last visit? Has dressing in place as prescribed Yes Yes Yes Has compression in place as prescribed N/A N/A N/A Has offloadiing in place as prescribed N/A N/A N/A Experienced any changes in pain level or No No No management Left Footwear Regular Shoe Regular Shoe Right Footwear Regular Shoe Regular Shoe Pain Scale: 0-10 Numeric Is Patient Pain Free? Yes Yes WC - Nurse 1 - General Ulcer Measurement Start: 04/14/21 11:27 Freq: Status: Active Protocol: Activity Type Activity Date Activity User E-Sign Co-Sign Detail Recorded Client Recorded Date Recorded By Document 04/15/21 09:01 PL [id number] 04/15/21 09:07 PL Document 04/22/21 09:13 MS [id number] 04/22/21 09:23 MS Document 04/29/21 10:56 [facility] [id number] 04/29/21 11:05 BMF 04/15/21 04/22/21 04/29/21 09:01 09:13 10:56 Wound Center Nurse 1 #4- L PLANTAR 3RD TOE -Combined with other wound No No -Current Size (cm) - Length 1.5 1 1.4 -Current Size (cm) - Width 1.0 1.5 1.1 -Current Size (cm) - Depth 0.5 0.2 0.1 -Total Square Cm 1.50 1.5 1.54 -Photo Taken No No -Epithelialization None Present None Present -Tunneling No No -Undermining/Tunneling No Yes -Undermining/Tunneling Starts (O'clock 5 ) -Undermining/Tunneling Ends (O'clock) 8 -Maximum Distance (cm) 0.3 -Circular Undermining No No -Exudate Amt Medium Small Medium -Exudate Type Serosanguineous Serosanguineous Serosanguineous -Wound Margin Distinct, Distinct, Outline Outline Attached Attached -Granulation Amt Large (67-100%) Medium (34-66%) Large (67-100%) -Granulation Quality Knierim Knierim Red -Slough/Fibrin Yes No -Necrosis Amt Small (1-33%) Medium (34-66%) None Present (0 %) -Necrotic Tissue Type Adherent Slough Adherent Slough -Texture (Angie-wound Skin Appearance) No Abnormality Assessed,Callus ,Scarring -Moisture (Angie-wound Skin Appearance) Maceration Assessed, Maceration,Dry/ Scaly -Color (Angie-wound Skin Appearance) No Abnormality Assessed,Palor -Temperature (Angie-wound Skin No Abnormality No Abnormality No Abnormality Appearance) (Pt Warm) (Pt Warm) (Pt Warm) -Tenderness on Palpation (Angie-wound No No Skin Appearance) -Ulcer Cleansing Rinsed/ Wound Cleanser soapy water Irrigated with Saline -Foul Odor after Cleansing No No No -Anesthetic Used 5% Lidocaine 4% Lidocaine 5% Lidocaine Gel Solution Gel WC - Nurse 2 - General Ulcer CM Notes Start: 04/14/21 11:27 Freq: Status: Active Protocol: Activity Type Activity Date Activity User E-Sign Co-Sign Detail Recorded Client Recorded Date Recorded By Document 04/15/21 09:30 MW [id number] 04/15/21 09:32 MW Document 04/22/21 10:00 MW [id number] 04/22/21 12:18 MW Document 04/29/21 11:22 MW [id number] 04/29/21 11:32 MW 04/15/21 04/22/2104/29/21 09:30 10:00 11:22 Wound Center Nurse 2 #4- L PLANTAR 3RD TOE -Time 09: 10:00 11:22 -Correct Patient Yes Yes Yes -Correct Side, Site, Position Yes Yes Yes -Correct Procedure Yes Yes Yes -Procedure Performed Yes Yes Yes -Type of Procedure Debridement Debridement Debridement -Clinical Debridement Subcutaneous Subcutaneous Subcutaneous -Tissue Removed Subcutaneous Subcutaneous Subcutaneous -Post Debridement (cm) - Length 1.4 1.3 1.5 -Post Debridement (cm) - Width 1.2 1.3 1.3 -Post Debridement (cm) - Depth 0.2 0.2 0.2 -Total Square (Post) (cm) 1.68 1.69 1.95 -Area of Debridement (cm) - Length 1.4 1.3 1.5 -Area of Debridement (cm) - Width 1.2 1.3 1.3 -Total Square (Area) (cm) 1.68 1.69 1.95 -Tunneling No No No -Undermining/Tunneling No No No -Circular Undermining No No No -Wound/Ulcer Outcome Not Healed Not Healed Not Healed -Ulcer Cleansing Rinsed/ Rinsed/ Rinsed/ Irrigated with Irrigated with Irrigated with Saline Saline Saline -Foul Odor after Cleansing No No No -Bioengineered Tissue Yes Yes Yes -Type of Bioengineered Tissue Epifix 18mm Epifix 18mm Epifix 18mm Disc Disc Disc -Expiration Date 01/12/26 01/12/26 01/12/26 -Product Lot Number [id number] -Percent Used 100 100 100 -Lot number of Saline Used [id number] -Bleeding Controlled with Pressure Pressure -Offloading No No -Type of Offloading Total Contact Cast (TCC) - Left ($) -Treatment Response Procedure Procedure Procedure Not Tolerated Well Tolerated Well Tolerated Well -Debridement - Subq, 1st 20sq cm No No No -Apply Skin Sub - 1st 25 sq cm - Feet 1 1 1 -Epifix 18mm Disc 3 3 3 Pain Scale: 0-10 Numeric Is Patient Pain Free? Yes Yes Yes WC - Nurse 3 - General Ulcer D/C NN Start: 04/14/21 11:27 Freq: Status: Active Protocol: Activity Type Activity Date Activity User E-Sign Co-Sign Detail Recorded Client Recorded Date Recorded By Document 04/15/21 09:41 KR [id number] 04/15/21 09:43 KR Document 04/22/21 10:09 MS [id number] 04/22/21 10:10 MS Document 04/29/21 11:36 [facility] [id number] 04/29/21 11:37 [facility] 04/15/21 04/22/21 04/29/21 09:41 10:09 11:36 Wound Care Nurse 3 #4- L PLANTAR 3RD TOE -Primary Dressing Applied Aquacel Extra -Other Dressing EPIFIX -Primary Dressing Covered/Secured with Dry Gauze, Dry Gauze, Dry Gauze & Secured with Secured with Roll Gauze, Tape Tape Secured with Tape,Other -Other Covering DRSG PER KR BROOCH [employer]ER [employer] -Aquacel Extra 1 Treatment Response Procedure Tolerated Well Pain Scale: 0-10 Numeric Is Patient Pain Free? Yes Yes Yes WC - Visit Discharge Discharge Condition Stable Stable Stable Ambulatory Status Ambulatory Ambulatory Ambulatory Transportation Private Auto Private Auto Private Auto Accompanied by Medication Reconcilliation completed & No provided to patient/care provider Clinical Summary of Care Provided Yes Wound debrided: L 3 rd toe plantar Type of Debridement: Excisional debridement Anesthesia Used: 5% Lidocaine Gel Depth: Down to and including healthy tissue Percentage of wound debrided: 100 Instrument Used: 5mm curette and - (nippers) Tissue Removed: devitalized and fibrin Severity: Limited To Skin Breakdown Amount of bleeding with debridement: Mild Bleeding Controlled with: Pressure Patient tolerated procedure: Patient tolerated procedure well Assessment/Plan Assessment/Plan (1) Nonhealing nonsurgical wound with fat layer exposed: CODE(S): T14.8XXA - Other injury of unspecified body region, initial encounter PLAN: Epifix #9 applied to toe with wound veil and ster-strips applied covered with 2 layers of Aquacell then gauze dressing follow up 1 week leave the dressing alone only change the outer dressing as needed (2) Osteomyelitis of great toe of left foot: CODE(S): M86.9 - Osteomyelitis, unspecified PLAN: continue HBO treatments when able (3) 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 (4) Diabetic foot ulcer associated with type 2 diabetes mellitus: CODE(S): E11.621 - Type 2 diabetes mellitus with foot ulcer; L97.509 - Non-pressure chronic ulcer of other part of unspecified foot with unspecified severity QUALIFIERS: Diabetic foot ulcer location: toe Laterality: left Non-pressure ulcer stage: with bone involvement without evidence of necrosis Qualified Code(s): E11.621 - Type 2 diabetes mellitus with foot ulcer; L97.526 - 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 involvement without evidence of necrosis
[2021-05-06 08:30] VITALS: BP 165/88; PULSE 79; RESP 16; TEMP 36.3; BMI 31.8
--- NOTE | 2021-05-06 11:58 | PCM.WC.PN ---
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 Surgery was on 25 March and per patient was uneventful however has had delayed healing of his surgical wound. He has been on a 3-week course of doxycycline History of diabetes mellitus and per patient his last A1c was 7.6. He reports compliance with his medication. Denies chills, fever or otherwise feeling of unwell at this time. X-ray back in July 2020 showed osteomyelitis of the left great toe since then he has developed open area on the plantar side of the third toe. Patient is undergoing treatment with advanced wound care as well as hyperbaric oxygen treatment to salvage his left foot. Progress of Wound: Today's hyperbaric oxygen session represents the 25th session of a planned 30 such sessions. Hyperbaric oxygen therapy was administered as per the facility's protocol. Recently placed bilateral eustachian tubes intact. Plan of treatment was for hyperbaric oxygen therapy to be administered at 2 CLAY for 90 minutes with no air breaks. Yesterday, the patient's hyperbaric oxygen therapy session was terminated early due to complaints of pain in the left supraorbital area. Concern at that time was that this may be related to a frontal sinus issue. The patient returns today for his next session of hyperbaric oxygen therapy. After only a few minutes in the chamber, the patient had not even reached depth, and he was again experiencing pain in the left supraorbital area. The patient was brought back up to level and out of the chamber. The patient was complaining of left-sided frontal sinus pain. It began to dissipate almost immediately after being removed from the hyperbaric oxygen chamber. Vital signs remained stable. Blood glucose levels are documented elsewhere. The patient's hyperbaric oxygen sessions are now to be placed on hold until the patient can be evaluated by his ENT physician within the next several days. Subjective Subjective Patient denies any complaints of problems. Patient does state he is on his last weeks of antibiotic therapy and wondering what he needs to do about the osteomyelitis. He has polyps in his sinuses and is on a prednisone pack at this time to see if that works for the pain experiencing through HBO. He does have a follow-up with his ENT in the coming week to determine if he is capable of tolerating HBO treatments. We discussed he should probably follow-up with Mikayla Centeno for further evaluation of his osteomyelitis. Objective Data Objective Data The posterior third toe looks very good healing well flatter he is coming to the end of his epi fix his. No sign of infection still likes to build some extra callus around the edge of the wound. We continue to debride that area and once he is done with the epi fix we will probably finish him off on Promogran. Vital Signs: Vital Signs Temp Pulse Resp BP 97.3 F L 79 16 165/88 H 05/06/21 08:30 05/06/21 08:30 05/06/21 08:30 05/06/21 08:30 Oxygen Delivery Method Room Air Weight: 235 lb Body Mass Index (BMI) 31.8 Physical Exam Const oriented x3 General Appearance: cooperative Exam Limitations: no limitations HEENT normocephalic Head and Scalp: normal to inspection Face and Sinus: normal facial exam Nose: external nose normal General Ear: hearing grossly impaired External Ear: external ears normal Mouth: oral and palatal mucosa normal Eyes PERRL General Eye: normal appearance of both eyes Neck full ROM General: normal visual inspection Resp normal respiratory effort Effort and Inspection: able to speak in complete sentences Auscultation: clear to auscultation bilaterally Cardio regular rate and regular rhythm Palpation: normal PMI Rate: regular rate Rhythm: regular rhythm GI Auscultation: normoactive bowel sounds Palpation: soft and no hepatosplenomegaly external exam normal Back/Spine Cervical Spine: cervical ROM normal Thoracic Spine / Upper Back: normal to inspection Lumbar Spine / Lower Back: normal to inspection Extremity normal to inspection General Extremity: normal exam except as noted Skin no rashes or lesions noted Neuro oriented x3 Psych Appearance: grossly normal Speech: normal speech Thought Content: normal thought content Judgement: judgement good Debridement Note Debridement Note Post-Debridement Measurements and Additional Note: Post-Debridement Measurements/Treatment WC - Nurse 1 - General Ulcer Assessment Start: 04/14/21 11:27 Freq: Status: Active Protocol: REMA Activity Type Activity Date Activity User E-Sign Co-Sign Detail Recorded Client Recorded Date Recorded By Document 04/15/21 09:01 PL [id number] 04/15/21 09:07 PL Document 04/22/21 09:13 ML [id number] 04/22/21 09:23 ML Document 04/29/21 10:56 [facility] [id number] 04/29/21 11:05 BMF Document 05/06/21 08:30 KR [id number] 05/06/21 08:36 KR 04/15/21 04/22/21 04/29/21 09:01 09:13 10:56 WC - Today's Visit Information Type of service Follow-up Visit Follow-up Visit Follow-up Visit (Physician/IRRIGATION INSTALLATION SPECIALIST (Physician/IRRIGATION INSTALLATION SPECIALIST (Physician/IRRIGATION INSTALLATION SPECIALIST ) ) ) Arrival Mode Ambulatory Ambulatory Ambulatory Transfer Assistance None None None Patient Identification Verified (Name & Yes Yes Yes ) Patient Requires Transmission-Based No No No Precautions Safety Precautions NA NA Finger Stick Blood Sugar(mg/dl) (if 179 148 indicated): Blood Sugar Stated by Stated by Patient Patient Height and Weight Body Mass Index (BMI) 31.8 31.8 31.8 BMI Classification Obese Obese Obese Vital Signs Temperature (97.8 F-99.1 F) 97.2 F L 97.8 F 97.3 F L Temperature Source Temporal Temporal Temporal Pulse Rate (60-100) 74 61 Pulse Location Monitor Monitor Respiratory Rate (12-18) 18 17 16 Respiratory rate source Observation Observation Oxygen Delivery Method Room Air Blood Pressure (90/60-120/80) 166/75 H 174/80 H Blood Pressure Mean (mm Hg) 105 111 Source Monitor Monitor Position Sitting Sitting Blood Pressure Location Left Arm Left Arm History Since Last Visit- (Skip if this is Patient's initial visit) Have you changed medications since your No No No last visit? Any new allergies or adverse reactions No No No Had a fall/change in ADL's that may No No No increase risk of falls Signs or symptoms of abuse and/or No No No neglect since last visit Have you been in the hospital since your No No No last visit? Has dressing in place as prescribed Yes Yes Yes Has compression in place as prescribed N/A N/A N/A Has offloadiing in place as prescribed N/A N/A N/A Experienced any changes in pain level or No No No management Left Footwear Regular Shoe Regular Shoe Right Footwear Regular Shoe Regular Shoe Pain Scale: 0-10 Numeric Is Patient Pain Free? Yes Yes 05/06/21 08:30 WC - Today's Visit Information Type of service Follow-up Visit (Physician/IRRIGATION INSTALLATION SPECIALIST ) Arrival Mode Ambulatory Transfer Assistance Patient Identification Verified (Name & Yes ) Patient Requires Transmission-Based Precautions Safety Precautions Finger Stick Blood Sugar(mg/dl) (if indicated): Blood Sugar Height and Weight Body Mass Index (BMI) 31.8 BMI Classification Obese Vital Signs Temperature (97.8 F-99.1 F) 97.3 F L Temperature Source Temporal Pulse Rate (60-100) 79 Pulse Location Monitor Respiratory Rate (12-18) 16 Respiratory rate source Observation Oxygen Delivery Method Room Air Blood Pressure (90/60-120/80) 165/88 H Blood Pressure Mean (mm Hg) 113 Source Monitor Position Semi-Fowlers Blood Pressure Location Left Arm History Since Last Visit- (Skip if this is Patient's initial visit) Have you changed medications since your No last visit? Any new allergies or adverse reactions No Had a fall/change in ADL's that may No increase risk of falls Signs or symptoms of abuse and/or No neglect since last visit Have you been in the hospital since your No last visit? Has dressing in place as prescribed Yes Has compression in place as prescribed N/A Has offloadiing in place as prescribed N/A Experienced any changes in pain level or No management Left Footwear Regular Shoe Right Footwear Regular Shoe Pain Scale: 0-10 Numeric Is Patient Pain Free? Yes WC - Nurse 1 - General Ulcer Measurement Start: 04/14/21 11:27 Freq: Status: Active Protocol: Activity Type Activity Date Activity User E-Sign Co-Sign Detail Recorded Client Recorded Date Recorded By Document 04/15/21 09:01 PL [id number] 04/15/21 09:07 PL Document 04/22/21 09:13 ML [id number] 04/22/21 09:23 ML Document 04/29/21 10:56 BM [id number] 04/29/21 11:05 BMF Document 05/06/21 08:30 KR [id number] 05/06/21 08:36 KR 04/15/21 04/22/21 04/29/21 09:01 09:13 10:56 Wound Center Nurse 1 #4- L PLANTAR 3RD TOE -Combined with other wound No No -Current Size (cm) - Length 1.5 1 1.4 -Current Size (cm) - Width 1.0 1.5 1.1 -Current Size (cm) - Depth 0.5 0.2 0.1 -Total Square Cm 1.50 1.5 1.54 -Photo Taken No No -Epithelialization None Present None Present -Tunneling No No -Undermining/Tunneling No Yes -Undermining/Tunneling Starts (O'clock 5 ) -Undermining/Tunneling Ends (O'clock) 8 -Maximum Distance (cm) 0.3 -Circular Undermining No No -Exudate Amt Medium Small Medium -Exudate Type Serosanguineous Serosanguineous Serosanguineous -Wound Margin Distinct, Distinct, Outline Outline Attached Attached -Granulation Amt Large (67-100%) Medium (34-66%) Large (67-100%) -Granulation Quality [place] Red -Slough/Fibrin Yes No -Necrosis Amt Small (1-33%) Medium (34-66%) None Present (0 %) -Necrotic Tissue Type Adherent Slough Adherent Slough -Texture (Angie-wound Skin Appearance) No Abnormality Assessed,Callus ,Scarring -Moisture (Angie-wound Skin Appearance) Maceration Assessed, Maceration,Dry/ Scaly -Color (Angie-wound Skin Appearance) No Abnormality Assessed,Palor -Temperature (Angie-wound Skin No Abnormality No Abnormality No Abnormality Appearance) (Pt Warm) (Pt Warm) (Pt Warm) -Tenderness on Palpation (Angie-wound No No Skin Appearance) -Ulcer Cleansing Rinsed/ Wound Cleanser soapy water Irrigated with Saline -Foul Odor after Cleansing No No No -Anesthetic Used 5% Lidocaine 4% Lidocaine 5% Lidocaine Gel Solution Gel Lower Limb Edema Present Left Calf (cm) Left Ankle (cm) 05/06/21 08:30 Wound Center Nurse 1 #4- L PLANTAR 3RD TOE -Combined with other wound No -Current Size (cm) - Length 1.1 -Current Size (cm) - Width 0.8 -Current Size (cm) - Depth 0.2 -Total Square Cm 0.88 -Photo Taken No -Epithelialization Small 1-33% -Tunneling No -Undermining/Tunneling No -Undermining/Tunneling Starts (O'clock ) -Undermining/Tunneling Ends (O'clock) -Maximum Distance (cm) -Circular Undermining No -Exudate Amt Medium -Exudate Type Serosanguineous -Wound Margin Distinct, Outline Attached -Granulation Amt Large (67-100%) -Granulation Quality Red -Slough/Fibrin No -Necrosis Amt None Present (0 %) -Necrotic Tissue Type -Texture (Angie-wound Skin Appearance) Assessed, Scarring -Moisture (Angie-wound Skin Appearance) Assessed -Color (Angie-wound Skin Appearance) Assessed -Temperature (Angie-wound Skin No Abnormality Appearance) (Pt Warm) -Tenderness on Palpation (Angie-wound No Skin Appearance) -Ulcer Cleansing soapy water -Foul Odor after Cleansing No -Anesthetic Used 5% Lidocaine Gel Lower Limb Edema Present Yes Left Calf (cm) 41.3 Left Ankle (cm) 26.9 WC - Nurse 2 - General Ulcer CM Notes Start: 04/14/21 11:27 Freq: Status: Active Protocol: Activity Type Activity Date Activity User E-Sign Co-Sign Detail Recorded Client Recorded Date Recorded By Document 04/15/21 09:30 MW [id number] 04/15/21 09:32 MW Document 04/22/21 10:00 MW [id number] 04/22/21 12:18 MW Document 04/29/21 11:22 MW [id number] 04/29/21 11:32 MW Edit Result 04/29/21 11:22 MW (1) [id number] 05/01/21 07:18 PL Document 05/06/21 09:18 MW [id number] 05/06/21 09:27 MW (1) #4- L PLANTAR 3RD TOE - Type of Offloading Total Contact Cast => (TCC) - Left ($) => 04/15/21 04/22/21 04/29/21 09:30 10:00 11:22 Wound Center Nurse 2 #4- L PLANTAR 3RD TOE -Time 09:20 10:00 11:22 -Correct Patient Yes Yes Yes -Correct Side, Site, Position Yes Yes Yes -Correct Procedure Yes Yes Yes -Procedure Performed Yes Yes Yes -Type of Procedure Debridement Debridement Debridement -Clinical Debridement Subcutaneous Subcutaneous Subcutaneous -Tissue Removed Subcutaneous Subcutaneous Subcutaneous -Post Debridement (cm) - Length 1.4 1.3 1.5 -Post Debridement (cm) - Width 1.2 1.3 1.3 -Post Debridement (cm) - Depth 0.2 0.2 0.2 -Total Square (Post) (cm) 1.68 1.69 1.95 -Area of Debridement (cm) - Length 1.4 1.3 1.5 -Area of Debridement (cm) - Width 1.2 1.3 1.3 -Total Square (Area) (cm) 1.68 1.69 1.95 -Tunneling No No No -Undermining/Tunneling No No No -Circular Undermining No No No -Wound/Ulcer Outcome Not Healed Not Healed Not Healed -Ulcer Cleansing Rinsed/ Rinsed/ Rinsed/ Irrigated with Irrigated with Irrigated with Saline Saline Saline -Foul Odor after Cleansing No No No -Bioengineered Tissue Yes Yes Yes -Type of Bioengineered Tissue Epifix 18mm Epifix 18mm Epifix 18mm Disc Disc Disc -Expiration Date 01/12/26 01/12/26 01/12/26 -Product Lot Number [id number] -Percent Used 100 100 100 -Lot number of Saline Used [id number] -Bleeding Controlled with Pressure Pressure -Offloading No No -Treatment Response Procedure Procedure Procedure Not Tolerated Well Tolerated Well Tolerated Well -Debridement - Subq, 1st 20sq cm No No No -Apply Skin Sub - 1st 25 sq cm - Feet 1 1 1 -Epifix 18mm Disc 3 3 3 Pain Scale: 0-10 Numeric Is Patient Pain Free? Yes Yes Yes 05/06/21 09:18 Wound Center Nurse 2 #4- L PLANTAR 3RD TOE -Time 09:18 -Correct Patient Yes -Correct Side, Site, Position Yes -Correct Procedure Yes -Procedure Performed Yes -Type of Procedure Debridement -Clinical Debridement Subcutaneous -Tissue Removed Subcutaneous -Post Debridement (cm) - Length 1.2 -Post Debridement (cm) - Width 0.8 -Post Debridement (cm) - Depth 0.2 -Total Square (Post) (cm) 0.96 -Area of Debridement (cm) - Length 1.2 -Area of Debridement (cm) - Width 0.8 -Total Square (Area) (cm) 0.96 -Tunneling No -Undermining/Tunneling No -Circular Undermining No -Wound/Ulcer Outcome Not Healed -Ulcer Cleansing Rinsed/ Irrigated with Saline -Foul Odor after Cleansing No -Bioengineered Tissue Yes -Type of Bioengineered Tissue Epifix 18mm Disc -Expiration Date 02/12/26 -Product Lot Number [id number] -Percent Used 100 -Lot number of Saline Used [id number] -Bleeding Controlled with Pressure -Offloading No -Treatment Response Procedure Tolerated Well -Debridement - Subq, 1st 20sq cm No -Apply Skin Sub - 1st 25 sq cm - Feet 1 -Epifix 18mm Disc 3 Pain Scale: 0-10 Numeric Is Patient Pain Free? Yes - Nurse 3 - General Ulcer D/C NN Start: 04/14/21 11:27 Freq: Status: Active Protocol: Activity Type Activity Date Activity User E-Sign Co-Sign Detail Recorded Client Recorded Date Recorded By Document 04/15/21 09:41 KR [id number] 04/15/21 09:43 KR Document 04/22/21 10:09 ML [id number] 04/22/21 10:10 ML Document 04/29/21 11:36 BMF [id number] 04/29/21 11:37 BMF Document 05/06/21 09:38 DL [id number] 05/06/21 09:39 DL 04/15/21 04/22/21 04/29/21 09:41 10:09 11:36 Wound Care Nurse 3 #4- L PLANTAR 3RD TOE -Foul Odor after Cleansing -Primary Dressing Applied Aquacel Extra -Other Dressing EPIFIX -Primary Dressing Covered/Secured with Dry Gauze, Dry Gauze, Dry Gauze & Secured with Secured with Roll Gauze, Tape Tape Secured with Tape,Other -Other Covering DRSG PER KR PULP TESTER -Aquacel Extra 1 Treatment Response Procedure Tolerated Well Pain Scale: 0-10 Numeric Is Patient Pain Free? Yes Yes Yes WC - Visit Discharge Discharge Condition Stable Stable Stable Ambulatory Status Ambulatory Ambulatory Ambulatory Transportation Private Auto Private Auto Private Auto Accompanied by Medication Reconcilliation completed & No provided to patient/care provider Clinical Summary of Care Provided Yes 05/06/21 09:38 Wound Care Nurse 3 #4- L PLANTAR 3RD TOE -Foul Odor after Cleansing No -Primary Dressing Applied Aquacel Extra -Other Dressing EpiFix -Primary Dressing Covered/Secured with Dry Gauze & Roll Gauze, Secured with Tape -Other Covering -Aquacel Extra 1 Treatment Response Procedure Tolerated Well Pain Scale: 0-10 Numeric Is Patient Pain Free? Yes WC - Visit Discharge Discharge Condition Stable Ambulatory Status Ambulatory Transportation Private Auto Accompanied by Medication Reconcilliation completed & provided to patient/care provider Clinical Summary of Care Provided Wound debrided: Left plantar third toe Laterality: Left Wound Grade/Stage: Stage III Type of Debridement: Excisional debridement Anesthesia Used: 5% Lidocaine Gel Depth: Down to and including healthy tissue Percentage of wound debrided: 100 Instrument Used: 7mm curette and - Tissue Removed: Nippers Severity: Limited To Skin Breakdown Amount of bleeding with debridement: Mild Bleeding Controlled with: Pressure and Silver Nitrate Patient tolerated procedure: Patient tolerated procedure well Assessment/Plan Assessment/Plan (1) Nonhealing nonsurgical wound with fat layer exposed: CODE(S): T14.8XXA - Other injury of unspecified body region, initial encounter PLAN: Epifix #10 applied to toe with wound veil and ster-strips applied covered with 2 layers of Aquacell then gauze dressing follow up 1 week leave the dressing alone only change the outer dressing as needed (2) Osteomyelitis of great toe of left foot: CODE(S): M86.9 - Osteomyelitis, unspecified PLAN: continue HBO treatments when able (3) 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 (4) Decubitus ulcer limited to breakdown of skin (stage 2): CODE(S): L89.92 - Pressure ulcer of unspecified site, stage 2 QUALIFIERS: Pressure injury location: toe Laterality: left Qualified Code(s): L89.892 - Pressure ulcer of other site, stage 2 (5) Diabetic foot ulcer associated with type 2 diabetes mellitus: CODE(S): E11.621 - Type 2 diabetes mellitus with foot ulcer; L97.509 - Non-pressure chronic ulcer of other part of unspecified foot with unspecified severity QUALIFIERS: Diabetic foot ulcer location: toe Laterality: left Non-pressure ulcer stage: with bone involvement without evidence of necrosis Qualified Code(s): E11.621 - Type 2 diabetes mellitus with foot ulcer; L97.526 - 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 involvement without evidence of necrosis
[2021-05-13 09:29] VITALS: BP 161/91; PULSE 83; RESP 16; TEMP 36.1; BMI 31.8
--- NOTE | 2021-05-13 12:24 | PN.PCM_ITS ---
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 Surgery was on 25 March and per patient was uneventful however has had delayed healing of his surgical wound. He has been on a 3-week course of doxycycline History of diabetes mellitus and per patient his last A1c was 7.6. He reports compliance with his medication. Denies chills, fever or otherwise feeling of unwell at this time. X-ray back in July 2020 showed osteomyelitis of the left great toe since then he has developed open area on the plantar side of the third toe. Patient is undergoing treatment with advanced wound care as well as hyperbaric oxygen treatment to salvage his left foot. Progress of Wound: Today's hyperbaric oxygen session represents the 25th session of a planned 30 such sessions. Hyperbaric oxygen therapy was administered as per the facility's protocol. Recently placed bilateral eustachian tubes intact. Plan of treatment was for hyperbaric oxygen therapy to be administered at 2 CLAY for 90 minutes with no air breaks. Yesterday, the patient's hyperbaric oxygen therapy session was terminated early due to complaints of pain in the left supraorbital area. Concern at that time was that this may be related to a frontal sinus issue. The patient returns today for his next session of hyperbaric oxygen therapy. After only a few minutes in the chamber, the patient had not even reached depth, and he was again experiencing pain in the left supraorbital area. The patient was brought back up to level and out of the chamber. The patient was complaining of left-sided frontal sinus pain. It began to dissipate almost immediately after being removed from the hyperbaric oxygen chamber. Vital signs remained stable. Blood glucose levels are documented elsewhere. The patient's hyperbaric oxygen sessions are now to be placed on hold until the patient can be evaluated by his ENT physician within the next several days. Subjective Subjective No concerns of the third plantar toe. Has appointment with his ENT about further ear problems. Still not at HBO. Patient still has not followed up with I&D and he said he will make an appointment Objective Data Objective Data Patient received his last epi fix this last week with very much improved at flat there is no indentations the toe is really starting to take form. We will try Promogran this week and see if he can heal him up. Vital Signs: Vital Signs Temp Pulse Resp BP 96.9 F L 83 16 161/91 H 05/13/21 09:29 05/13/21 09:29 05/13/21 09:29 05/13/21 09:29 Oxygen Delivery Method Room Air Weight: 235 lb Body Mass Index (BMI) 31.8 Physical Exam Const oriented x3 General Appearance: cooperative Exam Limitations: no limitations Resp normal respiratory effort Effort and Inspection: able to speak in complete sentences Auscultation: clear to auscultation bilaterally Cardio regular rate and regular rhythm Palpation: normal PMI Rate: regular rate Rhythm: regular rhythm Extremity normal to inspection General Extremity: normal exam except as noted Skin no rashes or lesions noted Neuro oriented x3 Psych Appearance: grossly normal Speech: normal speech Thought Content: normal thought content Judgement: judgement good Debridement Note Debridement Note Post-Debridement Measurements and Additional Note: Post-Debridement Measurements/Treatment - Nurse 1 - General Ulcer Assessment Start: 04/14/21 11:27 Freq: Status: Active Protocol: .LOWEZEKIELT Activity Type Activity Date Activity User E-Sign Co-Sign Detail Recorded Client Recorded Date Recorded By Document 04/15/21 09:01 PL [id number] 04/15/21 09:07 PL Document 04/22/21 09:13 ML [id number] 04/22/21 09:23 ML Document 04/29/21 10:56 [facility] [id number] 04/29/21 11:05 [facility] Document 05/06/21 08:30 KR [id number] 05/06/21 08:36 KR Document 05/13/21 09:29 [facility] [id number] 05/13/21 09:34 [facility] 04/15/21 04/22/21 04/29/21 09:01 09:13 10:56 - Today's Visit Information Type of service Follow-up Visit Follow-up Visit Follow-up Visit (Physician/COMBINATION MACHINE TOOL SETTER (Physician/COMBINATION MACHINE TOOL SETTER (Physician/COMBINATION MACHINE TOOL SETTER ) ) ) Arrival Mode Ambulatory Ambulatory Ambulatory Transfer Assistance None None None Patient Identification Verified (Name & Yes Yes Yes ) Patient Requires Transmission-Based No No No Precautions Safety Precautions NA NA Finger Stick Blood Sugar(mg/dl) (if 179 148 indicated): Blood Sugar Stated by Stated by Patient Patient Height and Weight Body Mass Index (BMI) 31.8 31.8 31.8 BMI Classification Obese Obese Obese Vital Signs Temperature (97.8 F-99.1 F) 97.2 F L 97.8 F 97.3 F L Temperature Source Temporal Temporal Temporal Pulse Rate (60-100) 74 61 Pulse Location Monitor Monitor Respiratory Rate (12-18) 18 17 16 Respiratory rate source Observation Observation Oxygen Delivery Method Room Air Blood Pressure (90/60-120/80) 166/75 H 174/80 H Blood Pressure Mean (mm Hg) 105 111 Source Monitor Monitor Position Sitting Sitting Blood Pressure Location Left Arm Left Arm History Since Last Visit- (Skip if this is Patient's initial visit) Have you changed medications since your No No No last visit? Any new allergies or adverse reactions No No No Had a fall/change in ADL's that may No No No increase risk of falls Signs or symptoms of abuse and/or No No No neglect since last visit Have you been in the hospital since your No No No last visit? Has dressing in place as prescribed Yes Yes Yes Has compression in place as prescribed N/A N/A N/A Has offloadiing in place as prescribed N/A N/A N/A Experienced any changes in pain level or No No No management Left Footwear Regular Shoe Regular Shoe Right Footwear Regular Shoe Regular Shoe Pain Scale: 0-10 Numeric Is Patient Pain Free? Yes Yes 05/06/21 05/13/21 08:30 09:29 WC - Today's Visit Information Type of service Follow-up Visit Follow-up Visit (Physician/COMBINATION MACHINE TOOL SETTER (Physician/COMBINATION MACHINE TOOL SETTER ) ) Arrival Mode Ambulatory Ambulatory Transfer Assistance None Patient Identification Verified (Name & Yes Yes ) Patient Requires Transmission-Based No Precautions Safety Precautions Finger Stick Blood Sugar(mg/dl) (if indicated): Blood Sugar Height and Weight Body Mass Index (BMI) 31.8 31.8 BMI Classification Obese Obese Vital Signs Temperature (97.8 F-99.1 F) 97.3 F L 96.9 F L Temperature Source Temporal Temporal Pulse Rate (60-100) 79 83 Pulse Location Monitor Monitor Respiratory Rate (12-18) 16 16 Respiratory rate source Observation Observation Oxygen Delivery Method Room Air Room Air Blood Pressure (90/60-120/80) 165/88 H 161/91 H Blood Pressure Mean (mm Hg) 113 114 Source Monitor Monitor Position Semi-Fowlers Sitting Blood Pressure Location Left Arm Left Arm History Since Last Visit- (Skip if this is Patient's initial visit) Have you changed medications since your No No last visit? Any new allergies or adverse reactions No No Had a fall/change in ADL's that may No No increase risk of falls Signs or symptoms of abuse and/or No No neglect since last visit Have you been in the hospital since your No No last visit? Has dressing in place as prescribed Yes Yes Has compression in place as prescribed N/A N/A Has offloadiing in place as prescribed N/A N/A Experienced any changes in pain level or No No management Left Footwear Regular Shoe Regular Shoe Right Footwear Regular Shoe Regular Shoe Pain Scale: 0-10 Numeric Is Patient Pain Free? Yes Yes WC - Nurse 1 - General Ulcer Measurement Start: 04/14/21 11:27 Freq: Status: Active Protocol: Activity Type Activity Date Activity User E-Sign Co-Sign Detail Recorded Client Recorded Date Recorded By Document 04/15/21 09:01 PL [id number] 04/15/21 09:07 PL Document 04/22/21 09:13 ML [id number] 04/22/21 09:23 ML Document 04/29/21 10:56 BMF [id number] 04/29/21 11:05 BMF Document 05/06/21 08:30 KR [id number] 05/06/21 08:36 KR Document 05/13/21 09:29 BMF [id number] 05/13/21 09:34 BMF 04/15/21 04/22/21 04/29/21 09:01 09:13 10:56 Wound Center Nurse 1 #4- L PLANTAR 3RD TOE -Combined with other wound No No -Current Size (cm) - Length 1.5 1 1.4 -Current Size (cm) - Width 1.0 1.5 1.1 -Current Size (cm) - Depth 0.5 0.2 0.1 -Total Square Cm 1.50 1.5 1.54 -Photo Taken No No -Epithelialization None Present None Present -Tunneling No No -Undermining/Tunneling No Yes -Undermining/Tunneling Starts (O'clock 5 ) -Undermining/Tunneling Ends (O'clock) 8 -Maximum Distance (cm) 0.3 -Circular Undermining No No -Exudate Amt Medium Small Medium -Exudate Type Serosanguineous Serosanguineous Serosanguineous -Wound Margin Distinct, Distinct, Outline Outline Attached Attached -Granulation Amt Large (67-100%) Medium (34-66%) Large (67-100%) -Granulation Quality [place] Red -Slough/Fibrin Yes No -Necrosis Amt Small (1-33%) Medium (34-66%) None Present (0 %) -Necrotic Tissue Type Adherent Slough Adherent Slough -Texture (Angie-wound Skin Appearance) No Abnormality Assessed,Callus ,Scarring -Moisture (Angie-wound Skin Appearance) Maceration Assessed, Maceration,Dry/ Scaly -Color (Angie-wound Skin Appearance) No Abnormality Assessed,Palor -Temperature (Angie-wound Skin No Abnormality No Abnormality No Abnormality Appearance) (Pt Warm) (Pt Warm) (Pt Warm) -Tenderness on Palpation (Angie-wound No No Skin Appearance) -Ulcer Cleansing Rinsed/ Wound Cleanser soapy water Irrigated with Saline -Foul Odor after Cleansing No No No -Anesthetic Used 5% Lidocaine 4% Lidocaine 5% Lidocaine Gel Solution Gel Lower Limb Edema Present Left Calf (cm) Left Ankle (cm) 05/06/21 05/13/21 08:30 09:29 Wound Center Nurse 1 #4- L PLANTAR 3RD TOE -Combined with other wound No No -Current Size (cm) - Length 1.1 0.6 -Current Size (cm) - Width 0.8 1 -Current Size (cm) - Depth 0.2 0.2 -Total Square Cm 0.88 0.6 -Photo Taken No No -Epithelialization Small 1-33% Small 1-33% -Tunneling No No -Undermining/Tunneling No No -Undermining/Tunneling Starts (O'clock ) -Undermining/Tunneling Ends (O'clock) -Maximum Distance (cm) -Circular Undermining No No -Exudate Amt Medium Medium -Exudate Type Serosanguineous Serosanguineous -Wound Margin Distinct, Distinct, Outline Outline Attached Attached -Granulation Amt Large (67-100%) Large (67-100%) -Granulation Quality Red Red -Slough/Fibrin No No -Necrosis Amt None Present (0 None Present (0 %) %) -Necrotic Tissue Type -Texture (Angie-wound Skin Appearance) Assessed, Assessed, Scarring Scarring -Moisture (Angie-wound Skin Appearance) Assessed Assessed -Color (Angie-wound Skin Appearance) Assessed Assessed -Temperature (Angie-wound Skin No Abnormality No Abnormality Appearance) (Pt Warm) (Pt Warm) -Tenderness on Palpation (Angie-wound No No Skin Appearance) -Ulcer Cleansing soapy water soapy water -Foul Odor after Cleansing No No -Anesthetic Used 5% Lidocaine 5% Lidocaine Gel Gel Lower Limb Edema Present Yes Yes Left Calf (cm) 41.3 40.5 Left Ankle (cm) 26.9 26.2 WC - Nurse 2 - General Ulcer CM Notes Start: 04/14/21 11:27 Freq: Status: Active Protocol: Activity Type Activity Date Activity User E-Sign Co-Sign Detail Recorded Client Recorded Date Recorded By Document 04/15/21 09:30 MW [id number] 04/15/21 09:32 MW Document 04/22/21 10:00 MW [id number] 04/22/21 12:18 MW Document 04/29/21 11:22 MW [id number] 04/29/21 11:32 MW Edit Result 04/29/21 11:22 MW (1) [id number] 05/01/21 07:18 PL Document 05/06/21 09:18 MW [id number] 05/06/21 09:27 MW (1) #4- L PLANTAR 3RD TOE - Type of Offloading Total Contact Cast => (TCC) - Left ($) => 04/15/21 04/22/21 04/29/21 09:30 10:00 11:22 Wound Center Nurse 2 #4- L PLANTAR 3RD TOE -Time 09:20 10:00 11:22 -Correct Patient Yes Yes Yes -Correct Side, Site, Position Yes Yes Yes -Correct Procedure Yes Yes Yes -Procedure Performed Yes Yes Yes -Type of Procedure Debridement Debridement Debridement -Clinical Debridement Subcutaneous Subcutaneous Subcutaneous -Tissue Removed Subcutaneous Subcutaneous Subcutaneous -Post Debridement (cm) - Length 1.4 1.3 1.5 -Post Debridement (cm) - Width 1.2 1.3 1.3 -Post Debridement (cm) - Depth 0.2 0.2 0.2 -Total Square (Post) (cm) 1.68 1.69 1.95 -Area of Debridement (cm) - Length 1.4 1.3 1.5 -Area of Debridement (cm) - Width 1.2 1.3 1.3 -Total Square (Area) (cm) 1.68 1.69 1.95 -Tunneling No No No -Undermining/Tunneling No No No -Circular Undermining No No No -Wound/Ulcer Outcome Not Healed Not Healed Not Healed -Ulcer Cleansing Rinsed/ Rinsed/ Rinsed/ Irrigated with Irrigated with Irrigated with Saline Saline Saline -Foul Odor after Cleansing No No No -Bioengineered Tissue Yes Yes Yes -Type of Bioengineered Tissue Epifix 18mm Epifix 18mm Epifix 18mm Disc Disc Disc -Expiration Date 01/12/26 01/12/26 01/12/26 -Product Lot Number [id number] -Percent Used 100 100 100 -Lot number of Saline Used [id number] -Bleeding Controlled with Pressure Pressure -Offloading No No -Treatment Response Procedure Procedure Procedure Not Tolerated Well Tolerated Well Tolerated Well -Debridement - Subq, 1st 20sq cm No No No -Apply Skin Sub - 1st 25 sq cm - Feet 1 1 1 -Epifix 18mm Disc 3 3 3 Pain Scale: 0-10 Numeric Is Patient Pain Free? Yes Yes Yes 05/06/21 09:18 Wound Center Nurse 2 #4- L PLANTAR 3RD TOE -Time 09:18 -Correct Patient Yes -Correct Side, Site, Position Yes -Correct Procedure Yes -Procedure Performed Yes -Type of Procedure Debridement -Clinical Debridement Subcutaneous -Tissue Removed Subcutaneous -Post Debridement (cm) - Length 1.2 -Post Debridement (cm) - Width 0.8 -Post Debridement (cm) - Depth 0.2 -Total Square (Post) (cm) 0.96 -Area of Debridement (cm) - Length 1.2 -Area of Debridement (cm) - Width 0.8 -Total Square (Area) (cm) 0.96 -Tunneling No -Undermining/Tunneling No -Circular Undermining No -Wound/Ulcer Outcome Not Healed -Ulcer Cleansing Rinsed/ Irrigated with Saline -Foul Odor after Cleansing No -Bioengineered Tissue Yes -Type of Bioengineered Tissue Epifix 18mm Disc -Expiration Date 02/12/26 -Product Lot Number [id number] -Percent Used 100 -Lot number of Saline Used [id number] -Bleeding Controlled with Pressure -Offloading No -Treatment Response Procedure Tolerated Well -Debridement - Subq, 1st 20sq cm No -Apply Skin Sub - 1st 25 sq cm - Feet 1 -Epifix 18mm Disc 3 Pain Scale: 0-10 Numeric Is Patient Pain Free? Yes - Nurse 3 - General Ulcer D/C NN Start: 04/14/21 11:27 Freq: Status: Active Protocol: Activity Type Activity Date Activity User E-Sign Co-Sign Detail Recorded Client Recorded Date Recorded By Document 04/15/21 09:41 KR [id number] 04/15/21 09:43 KR Document 04/22/21 10:09 ML [id number] 04/22/21 10:10 ML Document 04/29/21 11:36 BMF [id number] 04/29/21 11:37 BMF Document 05/06/21 09:38 DL [id number] 05/06/21 09:39 DL Document 05/13/21 10:14 KR [id number] 05/13/21 10:14 KR 04/15/21 04/22/21 04/29/21 09:41 10:09 11:36 Wound Care Nurse 3 #4- L PLANTAR 3RD TOE -Foul Odor after Cleansing -Primary Dressing Applied Aquacel Extra -Other Dressing EPIFIX -Primary Dressing Covered/Secured with Dry Gauze, Dry Gauze, Dry Gauze & Secured with Secured with Roll Gauze, Tape Tape Secured with Tape,Other -Other Covering DRSG PER KR GENERAL INTERNAL MEDICINE DOCTOR -Aquacel Extra 1 -Promogran Treatment Response Procedure Tolerated Well Pain Scale: 0-10 Numeric Is Patient Pain Free? Yes Yes Yes - Visit Discharge Discharge Condition Stable Stable Stable Ambulatory Status Ambulatory Ambulatory Ambulatory Transportation Private Auto Private Auto Private Auto Accompanied by Medication Reconcilliation completed & No provided to patient/care provider Clinical Summary of Care Provided Yes 05/06/21 05/13/21 09:38 10:14 Wound Care Nurse 3 #4- L PLANTAR 3RD TOE -Foul Odor after Cleansing No -Primary Dressing Applied Aquacel Extra NonAdherent Contact Layer, Promogran -Other Dressing EpiFix -Primary Dressing Covered/Secured with Dry Gauze & Dry Gauze,Dry Roll Gauze, Gauze & Roll Secured with Gauze,Secured Tape with Tape -Other Covering -Aquacel Extra 1 -Promogran 1 Treatment Response Procedure Tolerated Well Pain Scale: 0-10 Numeric Is Patient Pain Free? Yes Yes WC - Visit Discharge Discharge Condition Stable Stable Ambulatory Status Ambulatory Ambulatory Transportation Private Auto Private Auto Accompanied by Medication Reconcilliation completed & provided to patient/care provider Clinical Summary of Care Provided Wound debrided: Left plantar third toe Type of Debridement: Excisional debridement Anesthesia Used: 5% Lidocaine Gel Depth: Down to and including healthy tissue and in the subcutaneous layer Percentage of wound debrided: 100 Instrument Used: 3mm curette Tissue Removed: Fibrin Severity: Limited To Skin Breakdown Amount of bleeding with debridement: None Bleeding Controlled with: Pressure Assessment/Plan Assessment/Plan (1) Osteomyelitis of great toe of left foot: CODE(S): M86.9 - Osteomyelitis, unspecified (2) Nonhealing nonsurgical wound with fat layer exposed: CODE(S): T14.8XXA - Other injury of unspecified body region, initial encounter PLAN: Wash foot with antibacterial soap apply Promogran to wound base cover with Adaptic gauze dressing follow-up in 1 week (3) 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 (4) Diabetic foot ulcer associated with type 2 diabetes mellitus: CODE(S): E11.621 - Type 2 diabetes mellitus with foot ulcer; L97.509 - Non-pressure chronic ulcer of other part of unspecified foot with unspecified severity QUALIFIERS: Diabetic foot ulcer location: toe Laterality: left Non-pressure ulcer stage: with bone involvement without evidence of necrosis Qualified Code(s): E11.621 - Type 2 diabetes mellitus with foot ulcer; L97.526 - 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 involvement without evidence of necrosis
== END 2021-05-13 23:59 ==
LOC: WC 09:30
PROVIDERS: PCP Family Medicine; Referring Provider Podiatrist Foot & Ankle Surgery; Visit Provider Nurse Practitioner
DX: T14.8XXA Other injury of unspecified body region, initial encounter (principal); E11.621 Type 2 diabetes mellitus with foot ulcer; L97.526 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 involvement without evidence of necrosis; M86.9 Osteomyelitis, unspecified
CPT/HCPCS: 11042; 15275; 29445; 82962; 99183; Q4186; G0277

== ENCOUNTER 2021-05-19 12:25 | Emergency (ER) | payer MEDICARE, OTHER, SELFPAY ==
[2021-05-13 12:33] VITALS: BMI 31.2
[2021-05-19 12:26] VITALS: BP 135/82; PULSE 65; RESP 18; TEMP 36.3; O2SAT 98; BMI 30.6
--- NOTE | 2021-05-19 12:47 | RAD_ITS ---
STUDY: X-RAY - LEFT FOOT CLINICAL: Male, 75 years old. 3rd toe infection TECHNIQUE: 3 view(s) of the foot. COMPARISON: Comparison is made with prior examination dated 08/08/2020. FINDINGS: There is a plantar calcaneal spur. Normal visualized subtalar, talonavicular, calcaneocuboid, tarsal and tarsometatarsal articulations. Normal metatarsi. There is degenerative arthrosis of the metatarsophalangeal joint of the hallux . There is evidence of the periarticular erosive changes at the head of the first metatarsal. Normal tibial and fibular sesamoid bones. Joint space narrowing of the distal interphalangeal joint with the erosive changes. This is unchanged. Normal second through fifth metatarsophalangeal joints. 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 Irregularity seen along the distal portion of the distal pharynx of the second toe suggestive of a possible osteomyelitis. Mild irregularity overlying the proximal phalanx of the third toe with overlying soft tissue swelling. Osteomyelitis should be ruled out. There is non-specific soft tissue swelling of the foot. RAD/Foot min 3 Views IMPRESSION: Soft tissue swelling with evidence of findings suggestive of osteomyelitis as described. Electronically Signed: Shorty Elizabeth MD at 13:55 EDT , Service support ,
--- NOTE | 2021-05-19 12:47 | EDS_ITS ---
HPI History of Present Illness Chief Complaint: Wound Check Narrative Narrative: Patient presenting for wound on left third toe. He states this has been here since March. He was seen by his take down inspector Dr. Chun and had a foot x- ray for previous great toe osteomyelitis and the radiologist read the x-ray as osteomyelitis however his take down inspector disagreed and he had problems with this. Patient states that he has been going to the wound care center since the problem on the third so started and has not had an evaluation by the take down inspector except for to get his nails trimmed. He states that he did not even look under the dressing because wound care was managing it. Patient has seen Dr. Franklin previously and was put on doxycycline for 6 weeks. He states that it was still getting red prior to ending his antibiotic regimen last week. Patient states that he wishes to find a new take down inspector. He has had no systemic signs or symptoms. [facility] Medical History Acute osteomyelitis involving ankle and foot Arthritis Body mass index 31.0-31.9, adult Cellulitis Chronic osteomyelitis involving ankle and foot Diabetes mellitus Ectopic atrial tachycardia Essential hypertension Hyperlipidemia Hypertension Long-term use of high-risk medication Methicillin susceptible Staphylococcus aureus infection Nonhealing nonsurgical wound with fat layer exposed RAJESH (obstructive sleep apnea) Paroxysmal ventricular tachycardia Premature atrial contractions Premature ventricular contraction Psoriasis Secondary pulmonary arterial hypertension Shortness of breath Supraventricular tachycardia Home Medications finasteride 5 mg PO DAILY 02/03/16 [History Last Taken Unknown] metformin 1,000 mg PO BIDCM 02/03/16 [History Last Taken Unknown] tamsulosin 0.4 mg PO QHS 02/03/16 [History Last Taken Unknown] bimatoprost 1 drp EACH EYE DAILY 06/30/18 [History Last Taken Unknown] fluticasone propionate 2 spray NASAL DAILY PRN 06/30/18 [History Last Taken Unknown] methotrexate sodium 7.5 mg PO Q7D 06/30/18 [History Last Taken Unknown] pyridoxine (vitamin B6) 100 mg PO QHS 06/30/18 [History Last Taken Unknown] multivitamin with folic acid 1 tab PO DAILY 10/20/18 [History Last Taken Unknown] oxybutynin chloride 5 mg PO QHS 10/20/18 [History Last Taken Unknown] timolol maleate 1 drp EACH EYE BID 10/20/18 [History Last Taken 09/26/20 07:30] fexofenadine 180 mg tablet 180 mg PO DAILY 06/01/19 [History Last Taken Unknown] folic acid 1 mg tablet 4 mg PO DAILY 06/01/19 [History Last Taken Unknown] glucosamine HCl 1,500 mg tablet 1,500 mg PO BID tab 02/20/20 [History Last Taken Unknown] vit C 250 mg-vit E 90 mg-zinc 40 mg-copper 1 kz-hpsovd-voafcb capsule 1 cap PO DAILY 02/20/20 [History Last Taken Unknown] glipizide 10 mg tablet 10 mg PO DAILY tab 05/30/20 [History Last Taken Unknown] infliximab-dyyb 100 mg intravenous solution mg IV [id number] ea 05/30/20 [History Last Taken 08/15/20] naproxen sodium 220 mg PO PRN PRN 09/24/20 [History Last Taken Unknown] cyanocobalamin (vitamin B-12) 100 mcg tablet 500 mcg PO DAILY tab 12/01/20 [History Last Taken Unknown] ranitidine HCl 150 mg tablet mg PO 12/01/20 [History Last Taken Unknown] hydrochlorothiazide 25 mg tablet 25 mg PO DAILY #90 tab 03/30/21 [Rx Last Taken Unknown] lisinopril 40 mg tablet 40 mg PO DAILY #90 tab 03/30/21 [Rx Last Taken Unknown] metoprolol succinate 100 mg tablet,extended release 24 hr 100 mg PO BID #180 tab 03/30/21 [Rx Last Taken Unknown] potassium chloride 20 mEq tablet,extended release(part/cryst) 20 meq PO DAILY #90 tab 03/30/21 [Rx Last Taken Unknown] pravastatin 40 mg tablet 40 mg PO QHS #90 tab 03/30/21 [Rx Last Taken Unknown] doxycycline hyclate 100 mg PO BID 05/05/21 [History Last Taken 05/05/21] Allergy/AdvReac Type Severity Reaction Status Date / Time cephalexin [From Keflex] Allergy Severe rash Verified 05/19/21 12:25 sulfamethoxazole Allergy Severe Rash Verified 05/19/21 12:25 [From Bactrim] trimethoprim [From Bactrim] Allergy Severe Rash Verified 05/19/21 12:25 Penicillins AdvReac Unknown Verified 05/19/21 12:25 Family History Father Cancer Prostate Mother Depression Surgical History excision of skin cancer History of foot surgery History of hammer toe correction (09/26/20) History of hernia repair History of partial amputation of toe History of tonsillectomy and adenoidectomy Social History Smoking Status: Former smoker pack-years: 30 alcohol intake: current alcohol intake frequency: holidays/special occasions only substance use type: does not use caffeine: Yes Type: coffee Number of servings: 3 what type of physical activity do you participate in: running and weight training frequency: 1-2 times per week ROS ROS ED Constitutional Constitutional ED: Denies chills, fever(s) or subjective Eyes Eyes: Denies change in vision ENT ENT ED: Denies rhinorrhea or sore throat Cardiovascular Cardiovascular: Denies chest pain or palpitations Respiratory/Chest Respiratory/Chest: Denies cough or dyspnea Gastrointestinal Gastrointestinal: Denies abdominal pain, nausea or vomiting Genitourinary Genitourinary ED: Denies dysuria or hematuria Musculoskeletal Musculoskeletal: Reports other; Denies arthralgias or myalgias Integumentary Reports other Details: Ulceration to the plantar surface of left third toe Neurologic Neurologic: Denies headache(s) or weakness Psychiatric Psychiatric: Denies anxiety or depression EXAM Physical Exam Const Vital Signs: 05/19/21 12:26 05/19/21 14:58 Temperature 97.4 F L Temperature Source Temporal Pulse Rate 65 64 Respiratory Rate 18 16 Blood Pressure 135/82 H 150/78 H Blood Pressure Mean 99 Pulse Ox 98 100 Positive well nourished General Appearance ED: NAD HEENT normocephalic and atraumatic Resp normal respiratory effort and clear to auscultation bilaterally Cardio regular rate and regular rhythm Extremity Extremity Narrative: Erythema and swelling of left third toe distally with a small ulceration approximately 0.5 cm there is no active drainage. There is no lymphangitic streaking. Neuro oriented x3 Sensorium / Orientation: alert Psych mental status grossly normal Skin Skin Narrative: As described above MDM MDM MDM Narrative Medical decision making narrative: Patient presenting with left toe infection which has been infected for months. He has no systemic signs or symptoms. He states he was not content with his previous take down inspector. He is also been in contact with his infectious disease physician who has him on doxycycline which was just refilled. On examination he has a small ulceration on the plantar surface of the third toe of the left foot and there are some erythema surrounding. The foot x-ray of the left foot as interpreted by myself shows soft tissue swelling with findings suggestive of possible osteomyelitis. The radiologist does agree. His lab work-up shows a white blood cell count of 8.9, hemoglobin hematocrit are stable. Renal function and electrolytes are normal. CRP is 22.4 sed rate is 26. Patient was discussed with Dr. Alston who was amenable to seeing the patient. She did ask if the patient was feeling like he needed to be admitted to the hospital or could be followed up outpatient and he felt comfortable following up outpatient given that he has had this for months. Patient was given her office address and phone number. He will call tomorrow to set up appointment. Patient will take his doxycycline as prescribed. He is given return precautions. Impression: 1. Chronic osteomyelitis left third toe Lab Data Attestation: I reviewed the patient's lab results. Labs: Laboratory Results - last 24 hr 05/19/21 05/19/21 13:15 13:15 WBC 8.9 RBC 4.38 L Hgb 13.5 Hct 40.4 MCV 92.2 MCH 30.8 MCHC 33.4 RDW Std Deviation 45.1 H RDW Coeff of Jaimee 13.3 Plt Count 257 MPV 10.7 Immature Gran % (Auto) 0.300 Neut % (Auto) 64.2 Lymph % (Auto) 20.2 [place] % (Auto) 9.5 Eos % (Auto) 5.3 H Baso % (Auto) 0.5 Absolute Neuts (auto) 5.7 Absolute Lymphs (auto) 1.79 Nucleated RBC % 0 ESR 26 H Sodium 138 Potassium 4.0 Chloride 108 H Carbon Dioxide 25.0 Anion Gap 5 BUN 22 H Creatinine 1.24 Estim Creat Clear Calc 54.76 Est GFR (MDRD) Af Amer 73 Est GFR (MDRD) Non-Af 60 BUN/Creatinine Ratio 17.7 Glucose 116 H Calcium 9.1 C-React Prot Ext Range 22.40 H Radiography Diagnostic Testing: Radiology Impression Foot X-Ray 05/19/21 12:47 IMPRESSION: Soft tissue swelling with evidence of findings suggestive of osteomyelitis as described. Electronically Signed: Shorty Elizabeth MD at 13:55 EDT , Service support , Discharge Plan Triage Chief Complaint: Wound Check ED Provider: Xavier Foreman Dx/Rx/DC Orders Instructions: ED Wound Check (Infection) Prescriptions: No Action Inflectra 100 mg recon soln IV [id number] RF: 0 glucosamine HCl 1,500 mg tablet 1,500 mg PO BID RF: 0 cyanocobalamin (vitamin B-12) 100 mcg tablet 500 mcg PO DAILY RF: 0 glipizide 10 mg tablet 10 mg PO DAILY RF: 0 ranitidine HCl 150 mg tablet PO RF: 0 tamsulosin 0.4 MG capsule 0.4 mg PO QHS RF: 0 metformin 1,000 MG tablet 1,000 mg PO BIDCM RF: 0 finasteride 5 MG tablet 5 mg PO DAILY RF: 0 vit C,U-Dx-rsjqu-lutein-zeaxan [id number] jw-isjp-zd-mg capsule 1 cap PO DAILY RF: 0 methotrexate sodium 2.5 MG tablet 7.5 mg PO Q7D RF: 0 pyridoxine (vitamin B6) 50 MG tablet 100 mg PO QHS RF: 0 fluticasone propionate 1 SPRAY spray,suspension 2 spray NASAL DAILY PRN (Reason: Nasal Congestion) RF: 0 bimatoprost 1 DROP drops 1 drp EACH EYE DAILY RF: 0 fexofenadine 180 mg tablet 180 mg PO DAILY RF: 0 folic acid 1 mg tablet 4 mg PO DAILY RF: 0 oxybutynin chloride 5 MG tablet 5 mg PO QHS RF: 0 timolol maleate 1 DROP drops 1 drp EACH EYE BID RF: 0 multivitamin with folic acid 1 TABLET tablet 1 tab PO DAILY RF: 0 naproxen sodium 220 MG capsule 220 mg PO PRN PRN (Reason: Pain 1-10 Or Fever) RF: 0 doxycycline hyclate 100 mg Capsule 100 mg PO BID RF: 0 lisinopril 40 mg tablet 40 mg PO DAILY Qty: 90 RF: 3 metoprolol succinate 100 mg tablet extended release 24 hr 100 mg PO BID Qty: 180 RF: 3 potassium chloride 20 mEq tablet,ER particles/crystals 20 meq PO DAILY Qty: 90 RF: 3 pravastatin 40 mg tablet 40 mg PO QHS Qty: 90 RF: 3 hydrochlorothiazide 25 mg tablet 25 mg PO DAILY Qty: 90 RF: 3 Primary Care Provider: Jose Turner Referrals: Jose Turner MD [Primary Care Provider] - Kayy Alston DPM [STAFF PHYSICIAN] - As soon as possible Disposition Disposition: Home, Self Care Discharge Date/Time: 05/19/21 15:05
[2021-05-19 13:25] LABS: Erythrocyte Sedimentation Rate 26 mm/hr (0-20)
[2021-05-19 13:30] LABS: Absolute Lymphocyte Count 1.79 X10^3/uL (0.83-4.51); Absolute Neutrophil Count 5.7 X10^3/uL (2.0-7.7); Basophil# 0.04 X10^3/uL; Basophil% 0.5 % (0-1); Eosinophil# 0.47 X10^3/uL; Eosinophils% 5.3 % (0-5); Hematocrit 40.4 % (40-54); Hemoglobin 13.5 g/dL (13.0-16.5); Lymphocyte # 1.79 X10^3/ul (0.83-4.51); Lymphocyte % 20.2 % (19-41); Mean Corp Hgb Conc 33.4 g/dL (32-36); Mean Corpuscular Hgb 30.8 pg (27.0-32.0); Mean Corpuscular Volume 92.2 fL (80-94); Mean Platelet Vol. 10.7 fl (6.2-12.0); Monocyte# 0.84 X10^3/uL; Monocyte% 9.5 % (0-10); NRBC Flagged by Analyzer 0 % (0-5); Neutrophil # 5.68 X10^3/uL (2.7-7.7); Neutrophil % 64.2 % (47-70); Platelet Count 257 K/mm3 (150-450); RBC Distribution Width CV 13.3 % (11.6-14.6); RBC Distribution Width SD 45.1 fl (35.1-43.9); Red Blood Count 4.38 M/mm3 (4.6-6.2); White Blood Count 8.9 K/mm3 (4.4-11.0)
[2021-05-19 13:34] LABS: Anion Gap 5 (5-15); BUN 22 mg/dL (7-18); BUN/Creat Ratio 17.7 RATIO (10-20); Calcium,Total 9.1 mg/dL (8.5-10.1); Chloride 108 mmol/L (98-107); Creatinine, Serum 1.24 mg/dL (0.70-1.30); EST Glomerular Filtration Rate 60 mL/min (>60); Est Glom Filt Rate - Afr Amer 73 mL/min (>60); Estimated Creatinine Clearance 54.76 ml/min; Glucose 116 mg/dL (74-106); Sodium Level 138 mmol/L (136-145)
[2021-05-19 14:58] VITALS: BP 150/78; PULSE 64; RESP 16; O2SAT 100
== END 2021-05-19 15:05 | disposition home or self-care (01) ==
PROVIDERS: Emergency Provider Student in an Organized Health Care Education/Training Program; PCP Family Medicine
DX: E11.69 Type 2 diabetes mellitus with other specified complication (principal); M86.672 Other chronic osteomyelitis, left ankle and foot; M19.90 Unspecified osteoarthritis, unspecified site; I10 Essential (primary) hypertension; E78.5 Hyperlipidemia, unspecified; Z79.84 Long term (current) use of oral hypoglycemic drugs; Z79.899 Other long term (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; Z87.891 Personal history of nicotine dependence
CPT/HCPCS: 73630; 80048; 85025; 85652; 86140; 99283; A4216

== ENCOUNTER → 2021-05-21 11:37 | Outpatient (CLI) | payer MEDICARE, OTHER, SELFPAY ==
[2021-05-20 09:00] VITALS: BMI 30.6
[2021-05-21 13:01] LABS: Erythrocyte Sedimentation Rate 32 mm/hr (0-20)
[2021-05-21 13:03] LABS: Absolute Lymphocyte Count 1.74 X10^3/uL (0.83-4.51); Absolute Neutrophil Count 5.8 X10^3/uL (2.0-7.7); Basophil# 0.05 X10^3/uL; Basophil% 0.6 % (0-1); Eosinophil# 0.48 X10^3/uL; Eosinophils% 5.3 % (0-5); Hematocrit 40.3 % (40-54); Hemoglobin 13.3 g/dL (13.0-16.5); Lymphocyte # 1.74 X10^3/ul (0.83-4.51); Lymphocyte % 19.3 % (19-41); Mean Corpuscular Volume 93.9 fL (80-94); Monocyte# 0.91 X10^3/uL; Monocyte% 10.1 % (0-10); NRBC Flagged by Analyzer 0 % (0-5); Neutrophil # 5.79 X10^3/uL (2.7-7.7); Neutrophil % 64.4 % (47-70); Platelet Count 298 K/mm3 (150-450); RBC Distribution Width CV 13.6 % (11.6-14.6); RBC Distribution Width SD 45.8 fl (35.1-43.9); Red Blood Count 4.29 M/mm3 (4.6-6.2)
[2021-05-21 13:28] LABS: AST(SGOT) 26 U/L (15-37); Alanine Aminotransfer ALT/SGPT 41 U/L (16-61); Creatinine, Serum 1.17 mg/dL (0.70-1.30); EST Glomerular Filtration Rate 64 mL/min (>60); Est Glom Filt Rate - Afr Amer 78 mL/min (>60)
== END ==
PROVIDERS: PCP Family Medicine; Referring Provider Internal Medicine Rheumatology; Visit Provider Internal Medicine Rheumatology
DX: L40.52 Psoriatic arthritis mutilans (principal); L40.50 Arthropathic psoriasis, unspecified; L40.9 Psoriasis, unspecified; L30.9 Dermatitis, unspecified; Z79.1 Long term (current) use of non-steroidal anti-inflammatories (NSAID); M17.0 Bilateral primary osteoarthritis of knee; M50.90 Cervical disc disorder, unspecified, unspecified cervical region; L40.3 Pustulosis palmaris et plantaris; Z85.828 Personal history of other malignant neoplasm of skin; Z79.899 Other long term (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
CPT/HCPCS: 36415; 82565; 84450; 84460; 85025; 85652; 86140

== ENCOUNTER → 2021-05-28 09:59 | Outpatient (CLI) | payer MEDICARE, OTHER, SELFPAY ==
[2021-04-29 10:56] VITALS: BMI 31.8
[2021-05-27 09:32] VITALS: BMI 30.6
--- NOTE | 2021-05-28 10:09 | ADUL_ITS ---
Reason For Study: stricture of artery Left Velocities Ext Iliac Artery, dist = 104.5 cm./sec. Common Femoral Artery, mid = 97.9 cm./sec. Supf. Femoral Artery, prox = 114.3 cm./sec. Supf. Femoral Artery, mid = 101.5 cm./sec. Supf. Femoral Artery, dist = 81.4 cm./sec. Profunda Femoral Artery = 66.6 cm./sec. Popliteal Artery, proximal, = 105.2 cm./sec. Popliteal Artery, mid = 79.6 cm./sec. Popliteal Artery, distal = 123.4 cm./sec. Ant.Tibial Artery, prox = 83.2 cm./sec. Ant Tibial Artery, mid = 90.5 cm./sec. Ant. Tibial Artery, distal = 88.6 cm./sec. Post. Tibial Artery, prox = 83.3 cm./sec. Post Tibial Artery, mid = 88.7 cm./sec. Post Tibial Artery, dist. = 127 cm./sec. Peroneal Artery, prox = 83.2 cm./sec. Peroneal Artery, mid = 85.0 cm./sec. Peroneal Artery,dist. = 81.4 cm./sec. /US Art Duplex Unilat Lower Ext Interpretation Summary Left leg with no evidence of stenosis noted throughout. There is triphasic flow all the way through the ankle. Ordering Physician: Wally Egan Performed By: Jerrod Rausch RVT and Student
== END ==
PROVIDERS: PCP Family Medicine; Referring Provider Surgery Vascular Surgery; Visit Provider Surgery Vascular Surgery
DX: I70.213 Atherosclerosis of native arteries of extremities with intermittent claudication, bilateral legs (principal); I77.1 Stricture of artery; M79.605 Pain in left leg; M79.604 Pain in right leg; E78.00 Pure hypercholesterolemia, unspecified; I10 Essential (primary) hypertension; E11.9 Type 2 diabetes mellitus without complications; M19.90 Unspecified osteoarthritis, unspecified site
CPT/HCPCS: 93926

== ENCOUNTER → 2021-06-03 | Outpatient (CLI) | payer MEDICARE, OTHER, SELFPAY ==
[2021-06-03 14:12] VITALS: BMI 30.6
--- NOTE | 2021-06-03 16:34 | PN.PCM_ITS ---
History of Present Illness Date of Service: 06/03/21 Chief Complaint: Non-healing left third toe plantar wound with osteomyelitis History of Wound: This 75-year-old diabetic male patient was seen today as a podiatry consultation for nonhealing left third toe ulcer with suspected osteomyelitis. History of diabetes mellitus and per patient his last A1c was 7.6 percent. He reports compliance with his medication. He denies chills, fever, nausea, vomiting, diarrhea or other illness. Patient is undergoing treatment with advanced wound care as well as hyperbaric oxygen treatment to salvage his left foot. He has been walking in a regular close shoe. His swelling has also decreased. He is with his today. He was also seen by infectious disease specialist, Dr. Berry, today as well. He is interested in proceeding with hyperbaric oxygen therapy if possible. He also brought his offloading cam walker boot for adjustment today. Progress of Wound: stable Objective Data Objective Data Vital Signs: Body Mass Index (BMI) 30.6 Physical Exam Const alert and oriented x3 General Appearance: cooperative HEENT normocephalic Extremity Extremity Narrative: No calf tenderness Diminished pulses Muscle wasting noted Bulbous third distal toe without palpable fluctuance or bogginess or crepitus Compartments of left lower extremity remain soft Dorsal contraction and transverse plane deviation of lesser digits General Extremity: edema and no tenderness to palpation of joints or extremities; Negative for cyanosis Skin Skin Narrative: no purulence, no streaking, no odor, no infection. Plantar left third toe ulcer with granular base and deep probing to bone and joint noted. Adjacent skin is hairless and atrophic. Predebridement plantar left third toe 1.0 x 0.8 x 0.4 cm and post debridement 1.2 x 0.9 x 1.3 cm. General Skin Exam: Negative for erythema Neuro Neuro Narrative: lack of normal epicritic sensation via light touch is consistent with neuropathy status Psych cooperative and affect normal Debridement Note Debridement Note Wound debrided: plantar left third toe Wound Grade/Stage: 3 Type of Debridement: Excisional debridement Anesthesia Used: 4% Lidocaine Solution Depth: to bone Percentage of wound debrided: 100 Instrument Used: #15 blade Tissue Removed: fibrous, devitalized bone, biofilm, slough Severity: Fat Layer Exposed Amount of bleeding with debridement: Mild Bleeding Controlled with: Pressure Patient tolerated procedure: Patient tolerated procedure well Assessment/Plan Assessment/Plan (1) 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 (2) Osteomyelitis, unspecified: CODE(S): M86.9 - Osteomyelitis, unspecified QUALIFIERS: Osteomyelitis type: chronic multifocal Osteomyelitis location: foot Laterality: left Qualified Code(s): M86.372 - Chronic multifocal osteomyelitis, left ankle and foot (3) Cellulitis of left lower limb: CODE(S): L03.116 - Cellulitis of left lower limb (4) Diabetic foot ulcer associated with type 2 diabetes mellitus: CODE(S): E11.621 - Type 2 diabetes mellitus with foot ulcer; L97.509 - Non-pressure chronic ulcer of other part of unspecified foot with unspecified severity QUALIFIERS: Diabetic foot ulcer location: toe Laterality: left Non-pressure ulcer stage: with bone involvement without evidence of necrosis Qualified Code(s): E11.621 - Type 2 diabetes mellitus with foot ulcer; L97.526 - 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 involvement without evidence of necrosis (5) Non-pressure chronic ulcer of other part of left foot with necrosis of bone: CODE(S): L97.524 - Non-pressure chronic ulcer of other part of left foot with necrosis of bone PLAN: I reviewed and discussed his case today. Debridement was performed today as noted in the clinical panel to the ulcer site. Chart review was performed including recent hyperbaric oxygen sessions, wound center progress notes from clinical nurse practitioner Martha Alva, and emergency room visit notes. The following work up and care recommendations were made: Dressing: betadine wet to dry gauze. Wash: Antibacterial soap Tissue growth optimization: To continue hyperbaric oxygen therapy for treatment of osteomyelitis and necrosis of bone. He is already been undergoing this therapy and it is going well. It is noted he is also been recently seen and treated by an ENT specialist. The purpose of this therapy was briefly reviewed today including indications and benefits. I recommend pursuing additional hyperbaric oxygen therapy now that he has osteomyelitis at any site. He will follow-up with Martha Alva next week for extension of the service. Offload: I recommend offloading the ulcer site to allow healing progression. To discontinue wearing closed shoe. He has a cam walker boot at home and it was advised to resume use and to place weight on his heel. I recommended he uses an assistive device to aid in this process if needed. He brought his CAM Walker in today and I applied dual density Plastizote offloading liners to take pressure off the site. Vascular: His recent noninvasive vascular studies were reviewed from within the past year with normal ABIs and PVRs to the toe level. Systolic toe pressures of the toes were not obtained. Edema: To elevate limb at rest and reduce salt intake. Infection: It is noted he is being treated for osteomyelitis and this information was gathered through prior cultures and x-ray findings. He was recently on a course of doxycycline. He was seen by Dr. Berry, infectious disease specialist this afternoon in which his recommendations will be reviewed in regards to additional antibiotics. I did review his most recent culture results obtained at this facility including Staph aureus, actinobacter baumanni, actinomyces nauslundii. He has been seen by multiple providers including another gang mower operator in the [facility] area. It is not clear if he had other cultures obtained at another facility. Due to his concerning x-ray findings and nonhealing wound I would also offer removal of the prominent head of the proximal phalanx of this toe. Verbal consent was obtained today for removal of bone from the left third toe. Isopropyl alcohol preparation was performed and the proximal phalanx phalanx of the left third toe was removed with a rongeur instrument and this was sent to microbiology (aerobic, anaerobic, acid-fast, fungal) and also to pathology for histopathological evaluation for the suspected osteomyelitis. Imaging: His x-rays were reviewed 3 views of the foot from 05-19-21 without acute fracture or dislocation. The third left toe has removal of the distal middle phalanx. There is some rare fraction of the head of the proximal phalanx that is remaining and this is concerning for osteomyelitis. Adjacent edema is noted at the ulcer site as well. There is no foreign body or soft tissue emphysema. He reports he had an MRI and this is presumed to have been completed at an outside facility in which I do not have access to the results or images. He reports this confirmed his diagnosis of osteomyelitis. Labs: Most recent labs demonstrate white blood cell count of 9.0, ESR 32, C-reactive protein of 19.7. Pain: He is neuropathic and does not have pain. Host factors: He has multiple comorbidities that are contributing to delayed healing including diabetes. His A1c is noted to be at 6.7%. He was advised to maintain proper nutrition and protein supplementation to optimize healing. I recommend Enmanuel supplementation and samples were provided today. He understands he is at risk for amputation and would like to proceed forward with all measures to avoid this if possible. He is already tried many of the nonsurgical options. He will proceed forward with improved offloading, con tinued hyperbarics, and continued infectious disease management. He continues to fail nonsurgical care or has worsening status surgery is recommended. I answered all the patient's questions. To return to the wound healing center in 1 week or call sooner if the patient has any questions or concerns.
== END | disposition home or self-care (01) ==
LOC: LABSPEC 16:32
PROVIDERS: PCP Family Medicine; Referring Provider Podiatrist; Visit Provider Podiatrist
DX: L97.526 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 involvement without evidence of necrosis (principal); M86.372 Chronic multifocal osteomyelitis, left ankle and foot
CPT/HCPCS: 11044; 87070; 87075; 87077; 87186; 87205; 88311

== ENCOUNTER 2021-06-10 09:15 | Outpatient (RCR) | payer MEDICARE, OTHER, SELFPAY ==
[2021-05-13 12:33] VITALS: BMI 31.2
[2021-05-14 00:25] VITALS: BP 161/91; PULSE 83; RESP 16; TEMP 36.1
[2021-05-20 09:00] VITALS: BP 166/78; PULSE 71; RESP 18; TEMP 37; BMI 30.6
--- NOTE | 2021-05-20 10:02 | PCM.WC.PN ---
History of Present Illness Date of Service: 05/20/21 Chief Complaint: Non-healing left great toe plantar wound and left third toe plantar wound with osteomyelitis History of Wound: Mr Hatch Was referred here by his surveyor's assistant due to nonhealing left great toe wound status post surgery. Surgery was on 25 March and per patient was uneventful however has had delayed healing of his surgical wound. He has been on a 3-week course of doxycycline History of diabetes mellitus and per patient his last A1c was 7.6. He reports compliance with his medication. Denies chills, fever or otherwise feeling of unwell at this time. X-ray back in July 2020 showed osteomyelitis of the left great toe since then he has developed open area on the plantar side of the third toe. Patient is undergoing treatment with advanced wound care as well as hyperbaric oxygen treatment to salvage his left foot. Progress of Wound: The wound on the plantar side of the third toe looks very good its flatter smaller healing well. Base of the great toe there is no scabbing and is healed well. The third toe now is all red and swollen. Patient was seen in the emergency department over the holiday weekend and x-ray showed possible osteomyelitis. Patient was restarted on his doxycycline since Tuesday till he seen by infectious disease which was on vacation this week and will be back and he will be seen the end of May. Patient has an appointment tomorrow with his ENT about resuming HBO for his headaches from polyps in his sinuses. Subjective Subjective Complaining of the redness of the third toe and swelling of the toe was seen in the emergency room over the weekend. Made an appointment with Dr. Lisette Gasca this afternoon. Objective Data Objective Data We will continue with the Promogran which seems to be healing him well. He is to continue doxycycline because all the other medications he is either allergic to or develops tendon problems with the Cipro and Levaquin. Patient to follow-up with Dr. Amador next week Vital Signs: Vital Signs Temp Pulse Resp BP 98.6 F 71 18 166/78 H 05/20/21 09:00 05/20/21 09:00 05/20/21 09:00 05/20/21 09:00 Weight: 235 lb Body Mass Index (BMI) 30.6 Physical Exam Const oriented x3 General Appearance: cooperative Exam Limitations: no limitations Resp normal respiratory effort Effort and Inspection: able to speak in complete sentences Auscultation: clear to auscultation bilaterally Cardio regular rate and regular rhythm Palpation: normal PMI Rate: regular rate Rhythm: regular rhythm Extremity normal to inspection General Extremity: normal exam except as noted Skin no rashes or lesions noted Wounds: wounds noted Neuro oriented x3 Psych Appearance: grossly normal Speech: normal speech Thought Content: normal thought content Judgement: judgement good Debridement Note Debridement Note Post-Debridement Measurements and Additional Note: Post-Debridement Measurements/Treatment JONNY - Nurse 1 - General Ulcer Assessment Start: 05/20/21 08:59 Freq: Status: Active Protocol: REMA Activity Type Activity Date Activity User E-Sign Co-Sign Detail Recorded Client Recorded Date Recorded By Document 05/20/21 09:00 PL [id number] 05/20/21 09:09 PL 05/20/21 09:00 WC - Today's Visit Information Type of service Follow-up Visit (Physician/MENTAL HEALTH PROGRAM MANAGER ) Arrival Mode Ambulatory Transfer Assistance None Patient Identification Verified (Name & Yes ) Patient Requires Transmission-Based No Precautions Safety Precautions NA Finger Stick Blood Sugar(mg/dl) (if 135 indicated): Blood Sugar Stated by Patient Height and Weight Body Mass Index (BMI) 30.6 BMI Classification Obese Vital Signs Temperature (97.8 F-99.1 F) 98.6 F Temperature Source Temporal Pulse Rate (60-100) 71 Respiratory Rate (12-18) 18 Blood Pressure (90/60-120/80) 166/78 H Blood Pressure Mean (mm Hg) 107 History Since Last Visit- (Skip if this is Patient's initial visit) Have you changed medications since your No last visit? Any new allergies or adverse reactions No Had a fall/change in ADL's that may No increase risk of falls Signs or symptoms of abuse and/or No neglect since last visit Have you been in the hospital since your Yes last visit? Has dressing in place as prescribed Yes Has compression in place as prescribed N/A Has offloadiing in place as prescribed N/A Experienced any changes in pain level or No management Pain Scale: 0-10 Numeric Is Patient Pain Free? Yes JONNY - Nurse 1 - General Ulcer Measurement Start: 05/20/21 08:59 Freq: Status: Active Protocol: Activity Type Activity Date Activity User E-Sign Co-Sign Detail Recorded Client Recorded Date Recorded By Document 05/20/21 09:00 PL [id number] 05/20/21 09:09 PL 05/20/21 09:00 Wound Center Nurse 1 #4- L PLANTAR 3RD TOE -Combined with other wound No -Current Size (cm) - Length 0.5 -Current Size (cm) - Width 0.6 -Current Size (cm) - Depth 0.1 -Total Square Cm 0.30 -Photo Taken No -Tunneling No -Undermining/Tunneling No -Circular Undermining No -Exudate Amt Medium -Exudate Type Serosanguineous -Granulation Amt Large (67-100%) -Granulation Quality [place] -Slough/Fibrin Yes -Necrosis Amt Small (1-33%) -Moisture (Angie-wound Skin Appearance) Dry/Scaly -Color (Angie-wound Skin Appearance) Erythema -Ulcer Cleansing Rinsed/ Irrigated with Saline -Foul Odor after Cleansing No -Anesthetic Used 5% Lidocaine Gel WC - Nurse 2 - General Ulcer CM Notes Start: 05/20/21 08:59 Freq: Status: Active Protocol: Activity Type Activity Date Activity User E-Sign Co-Sign Detail Recorded Client Recorded Date Recorded By Document 05/20/21 09:23 MW [id number] 05/20/21 09:27 MW 05/20/21 09:23 Wound Center Nurse 2 -Time 09:23 -Correct Patient Yes -Correct Side, Site, Position Yes -Correct Procedure Yes -Procedure Performed Yes -Type of Procedure Debridement -Clinical Debridement Subcutaneous -Tissue Removed Subcutaneous -Post Debridement (cm) - Length 0.5 -Post Debridement (cm) - Width 0.6 -Post Debridement (cm) - Depth 0.1 -Total Square (Post) (cm) 0.30 -Area of Debridement (cm) - Length 0.5 -Area of Debridement (cm) - Width 0.6 -Total Square (Area) (cm) 0.30 -Tunneling No -Undermining/Tunneling No -Circular Undermining No -Wound/Ulcer Outcome Not Healed -Ulcer Cleansing Rinsed/ Irrigated with Saline -Foul Odor after Cleansing No -Bioengineered Tissue No -Bleeding Controlled with Pressure -Offloading No -Treatment Response Procedure Tolerated Well -Debridement - Subq, 1st 20sq cm Yes Pain Scale: 0-10 Numeric Is Patient Pain Free? Yes Wound debrided: Third toe plantar side left foot Laterality: Left Type of Debridement: Excisional debridement Anesthesia Used: 5% Lidocaine Gel Depth: Down to and including healthy tissue and in the subcutaneous layer Percentage of wound debrided: 100 Tissue Removed: Callus and fibrin Severity: Limited To Skin Breakdown Amount of bleeding with debridement: Mild Bleeding Controlled with: Pressure Patient tolerated procedure: Patient tolerated procedure well Assessment/Plan Assessment/Plan (1) Nonhealing nonsurgical wound with fat layer exposed: CODE(S): T14.8XXA - Other injury of unspecified body region, initial encounter PLAN: Wash foot with antibacterial soap apply Promogran to wound base cover with Adaptic gauze dressing follow-up in 1 week (2) Osteomyelitis of great toe of left foot: CODE(S): M86.9 - Osteomyelitis, unspecified PLAN: Follow-up with ENT to determine if you can continue HBO Keep appointment with infectious disease Continue doxycycline 100 mg twice daily (3) 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
[2021-05-25 11:17] VITALS: BP 134/78; BP 136/78; PULSE 70; PULSE 78; RESP 16; TEMP 36.2
[2021-05-25 11:51] LABS: Bedside Glucose 176 mg/dL (70-110)
--- NOTE | 2021-05-25 13:18 | PCM.HBO.PN ---
History of Present Illness Date of Service: 05/25/21 Chief Complaint: Non-healing left great toe plantar wound and left third toe plantar wound with osteomyelitis History of Wound: Mr Hatch Was referred here by his search optimization analyst due to nonhealing left great toe wound status post surgery. Surgery was on 25 March and per patient was uneventful however has had delayed healing of his surgical wound. He has been on a 3-week course of doxycycline History of diabetes mellitus and per patient his last A1c was 7.6. He reports compliance with his medication. Denies chills, fever or otherwise feeling of unwell at this time. X-ray back in July 2020 showed osteomyelitis of the left great toe since then he has developed open area on the plantar side of the third toe. Patient is undergoing treatment with advanced wound care as well as hyperbaric oxygen treatment to salvage his left foot. Progress of Wound: The wound on the plantar side of the third toe looks very good its flatter smaller healing well. Base of the great toe there is no scabbing and is healed well. The third toe now is all red and swollen. Patient was seen in the emergency department over the holiday weekend and x-ray showed possible osteomyelitis. Patient was restarted on his doxycycline since Tuesday till he seen by infectious disease which was on vacation this week and will be back and he will be seen the end of May. Patient has an appointment tomorrow with his ENT about resuming HBO for his headaches from polyps in his sinuses. Subjective Subjective Today's hyperbaric oxygen session represents the 24th session of a planned 30 such sessions. Hyperbaric oxygen therapy was administered as per the facility's protocol. Recently placed bilateral eustachian tubes intact. Plan of treatment was for hyperbaric oxygen therapy to be administered at 2 CLAY for 90 minutes with no air breaks. This was the first dive since the patient experienced the head pain during his last hyperbaric oxygen therapy treatment. He was able to tolerate the treatment well, no complaints. Vital signs were stable and the patient was discharged in good condition. Objective Data Objective Data Vital Signs: Vital Signs Temp Pulse Resp BP 97.2 F L 70 16 134/78 H 05/25/21 11:17 05/25/21 11:17 05/25/21 11:17 05/25/21 11:17 Weight: 235 lb Body Mass Index (BMI) 30.6 Lab / Micro Data Labs: Laboratory Results - last 24 hr 05/25/21 10:36: POC Glucose 176 H Exam Physical Exam Const oriented x3 General Appearance: cooperative HEENT normocephalic Tympanic Membrane: TM's normal bilaterally Neck General: normal visual inspection Resp normal respiratory effort Effort and Inspection: able to speak in complete sentences Auscultation: clear to auscultation bilaterally Cardio Negative for regular rate or regular rhythm Rate: regular rate Rhythm: regular rhythm GI Palpation: soft Neuro oriented x3 Psych Appearance: grossly normal Speech: normal speech Thought Content: normal thought content Judgement: judgement good Assessment/Plan Assessment/Plan (1) Osteomyelitis of great toe of left foot: CODE(S): M86.9 - Osteomyelitis, unspecified PLAN: The patient appears to be tolerating hyperbaric oxygen therapy well, which will be continued as per his medical plan.
[2021-05-25 15:56] LABS: Bedside Glucose 134 mg/dL (70-110)
[2021-05-26 11:20] LABS: Bedside Glucose 159 mg/dL (70-110)
[2021-05-26 12:39] VITALS: BP 141/93; BP 145/95; PULSE 68; PULSE 79; RESP 16; TEMP 36.2; TEMP 36.5
[2021-05-26 12:51] LABS: Bedside Glucose 132 mg/dL (70-110)
--- NOTE | 2021-05-26 14:04 | HBO.PN.PCM_ITS ---
History of Present Illness Date of Service: 05/26/21 Chief Complaint: Non-healing left great toe plantar wound and left third toe plantar wound with osteomyelitis History of Wound: Mr Hatch Was referred here by his rehabilitation caseworker due to nonhealing left great toe wound status post surgery. Surgery was on 25 March and per patient was uneventful however has had delayed healing of his surgical wound. He has been on a 3-week course of doxycycline History of diabetes mellitus and per patient his last A1c was 7.6. He reports compliance with his medication. Denies chills, fever or otherwise feeling of unwell at this time. X-ray back in July 2020 showed osteomyelitis of the left great toe since then he has developed open area on the plantar side of the third toe. Patient is undergoing treatment with advanced wound care as well as hyperbaric oxygen treatment to salvage his left foot. Progress of Wound: The wound on the plantar side of the third toe looks very good its flatter smaller healing well. Base of the great toe there is no scabbing and is healed well. The third toe now is all red and swollen. Patient was seen in the emergency department over the holiday weekend and x-ray showed possible osteomyelitis. Patient was restarted on his doxycycline since Tuesday till he seen by infectious disease which was on vacation this week and will be back and he will be seen the end of May. Patient has an appointment tomorrow with his ENT about resuming HBO for his headaches from polyps in his sinuses. Subjective Subjective Today's hyperbaric oxygen therapy session represents the 25th session of a planned 30 such sessions. Hyperbaric oxygen therapy was administered as per the facility's protocol. Hyperbaric oxygen therapy was administered at 2 tulio for 90 minutes with no air breaks. Patient tolerated hyperbaric oxygen therapy well, without complaints or complications. Upon emergence from the hyperbaric chamber, the patient's vital signs remained stable. Pre- and post- treatment blood sugars are recorded elsewhere. Objective Data Objective Data Vital Signs: Vital Signs Temp Pulse Resp BP 97.7 F L 68 16 141/93 H 05/26/21 12:39 05/26/21 12:39 05/26/21 12:39 05/26/21 12:39 Weight: 235 lb Body Mass Index (BMI) 30.6 Lab / Micro Data Labs: Laboratory Results - last 24 hr 05/25/21 12:55: POC Glucose 134 H 05/26/21 10:34: POC Glucose 159 H 05/26/21 12:46: POC Glucose 132 H Exam Physical Exam Const alert, oriented x3, no apparent distress and well nourished General Appearance: cooperative and well developed HEENT normocephalic Head and Scalp: atraumatic Eyes PERRL and EOMs intact bilaterally Resp normal respiratory effort and no use of accessory muscles Effort and Inspection: able to speak in complete sentences Psych affect normal Appearance: grossly normal Assessment/Plan Assessment/Plan (1) Nonhealing nonsurgical wound with fat layer exposed: CODE(S): T14.8XXA - Other injury of unspecified body region, initial encounter (2) Osteomyelitis of great toe of left foot: CODE(S): M86.9 - Osteomyelitis, unspecified (3) 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 (4) Diabetic foot ulcer associated with type 2 diabetes mellitus: CODE(S): E11.621 - Type 2 diabetes mellitus with foot ulcer; L97.509 - Non-pressure chronic ulcer of other part of unspecified foot with unspecified severity QUALIFIERS: Diabetic foot ulcer location: toe Laterality: left Non-pressure ulcer stage: with bone involvement without evidence of necrosis Qualified Code(s): E11.621 - Type 2 diabetes mellitus with foot ulcer; L97.526 - 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 involvement without evidence of necrosis (5) Decubitus ulcer limited to breakdown of skin (stage 2): CODE(S): L89.92 - Pressure ulcer of unspecified site, stage 2 QUALIFIERS: Pressure injury location: toe Laterality: left Qualified Code(s): L89.892 - Pressure ulcer of other site, stage 2 (6) Non-healing surgical wound: CODE(S): T81.89XA - Other complications of procedures, not elsewhere classified, initial encounter QUALIFIERS: Encounter type: subsequent encounter Qualified Code(s): T81.89XD - Other complications of procedures, not elsewhere classified, subsequent encounter (7) Diabetes mellitus: CODE(S): E11.9 - Type 2 diabetes mellitus without complications QUALIFIERS: Diabetes mellitus type: type 2 Diabetes mellitus correction insulin use: without lobsterman use Diabetes mellitus complication status: with skin complications Diabetes mellitus complication detail: with foot ulcer Qualified Code(s): E11.621 - Type 2 diabetes mellitus with foot ulcer; L97.509 - Non-pressure chronic ulcer of other part of unspecified foot with unspecified severity (8) Chronic osteomyelitis involving ankle and foot: CODE(S): M86.679 - Other chronic osteomyelitis, unspecified ankle and foot QUALIFIERS: Laterality: left Qualified Code(s): M86.672 - Other chronic osteomyelitis, left ankle and foot (9) Acute osteomyelitis involving ankle and foot: CODE(S): M86.179 - Other acute osteomyelitis, unspecified ankle and foot PLAN: The patient appears to be tolerating hyperbaric oxygen therapy well, which will be continued as per the patient's medical plan.
[2021-05-27 09:32] VITALS: BP 105/60; PULSE 77; RESP 20; TEMP 36.6; BMI 30.6
[2021-05-27 10:50] LABS: Bedside Glucose 150 mg/dL (70-110)
--- NOTE | 2021-05-27 10:56 | PN.PCM_ITS ---
History of Present Illness Date of Service: 05/27/21 Chief Complaint: Non-healing left third toe plantar wound with osteomyelitis History of Wound: This 75-year-old diabetic male patient was seen today as a podiatry consultation for nonhealing left third toe ulcer with suspected osteomyelitis. History of diabetes mellitus and per patient his last A1c was 7.6 percent. He recently had a doxycycline oral antibiotic extension for 2 additional weeks per infectious disease specialist, Dr. Parker. He reports compliance with his medication. He denies chills, fever, nausea, vomiting, diarrhea or other illness. Patient is undergoing treatment with advanced wound care as well as hyperbaric o xygen treatment to salvage his left foot. He has been walking in a regular close shoe. He takes 30 g of additional protein supplementation does not recall the brand name. His redness has resolved since last week. His swelling has also decreased. He is with his today. Progress of Wound: stable Objective Data Objective Data Vital Signs: Vital Signs Temp Pulse Resp BP 98 F 77 20 H 105/60 05/27/21 09:32 05/27/21 09:32 05/27/21 09:32 05/27/21 09:32 Weight: 106.594 kg Body Mass Index (BMI) 30.6 Lab / Micro Data Labs: Laboratory Results - last 24 hr 05/26/21 10:34: POC Glucose 159 H 05/26/21 12:46: POC Glucose 132 H 05/27/21 10:46: POC Glucose 150 H Physical Exam Const alert and oriented x3 General Appearance: cooperative HEENT normocephalic Extremity Extremity Narrative: No calf tenderness Diminished pulses Muscle wasting noted Bulbous third distal toe without palpable fluctuance or bogginess or crepitus Compartments of left lower extremity remain soft Dorsal contraction and transverse plane deviation of lesser digits General Extremity: edema and no tenderness to palpation of joints or extremities ; Negative for cyanosis Skin Skin Narrative: no purulence, no streaking, no odor, no infection. Plantar left third toe ulcer with granular base and deep probing to bone and joint noted. Adjacent skin is hairless and atrophic General Skin Exam: Negative for erythema Neuro Neuro Narrative: lack of normal epicritic sensation via light touch is consistent with neuropathy status Psych cooperative and affect normal Debridement Note Debridement Note Post-Debridement Measurements and Additional Note: Post-Debridement Measurements/Treatment WC - Nurse 1 - General Ulcer Assessment Start: 05/20/21 08:59 Freq: Status: Active Protocol: REMA Activity Type Activity Date Activity User E-Sign Co-Sign Detail Recorded Client Recorded Date Recorded By Document 05/20/21 09:00 PL [id number] 05/20/21 09:09 PL Document 05/27/21 09:32 DL Desktop 05/27/21 09:38 DL 05/20/21 05/27/21 09:00 09:32 - Today's Visit Information Type of service Follow-up Visit Follow-up Visit (Physician/CUSHION INSTALLER (Physician/CUSHION INSTALLER ) ) Arrival Mode Ambulatory Ambulatory Transfer Assistance None None Patient Identification Verified (Name & Yes Yes ) Patient Requires Transmission-Based No No Precautions Safety Precautions NA Finger Stick Blood Sugar(mg/dl) (if 135 133 indicated): Blood Sugar Stated by Stated by Patient Patient Height and Weight Body Mass Index (BMI) 30.6 30.6 BMI Classification Obese Obese Vital Signs Temperature (97.8 F-99.1 F) 98.6 F 98 F Temperature Source Temporal Temporal Pulse Rate (60-100) 71 77 Pulse Location Monitor Respiratory Rate (12-18) 18 20 H Respiratory rate source Observation Blood Pressure (90/60-120/80) 166/78 H 105/60 Blood Pressure Mean (mm Hg) 107 75 Source Monitor History Since Last Visit- (Skip if this is Patient's initial visit) Have you changed medications since your No No last visit? Any new allergies or adverse reactions No No Had a fall/change in ADL's that may No No increase risk of falls Signs or symptoms of abuse and/or No No neglect since last visit Have you been in the hospital since your Yes No last visit? Has dressing in place as prescribed Yes Yes Has compression in place as prescribed N/A N/A Has offloadiing in place as prescribed N/A Yes Experienced any changes in pain level or No No management Pain Scale: 0-10 Numeric Is Patient Pain Free? Yes Yes - Nurse 1 - General Ulcer Measurement Start: 05/20/21 08:59 Freq: Status: Active Protocol: Activity Type Activity Date Activity User E-Sign Co-Sign Detail Recorded Client Recorded Date Recorded By Document 05/20/21 09:00 PL [id number] 05/20/21 09:09 PL Document 05/27/21 09:32 DL Desktop 05/27/21 09:38 DL 05/20/21 05/27/21 09:00 09:32 Wound Center Nurse 1 #4- L PLANTAR 3RD TOE -Combined with other wound No -Current Size (cm) - Length 0.5 0.4 -Current Size (cm) - Width 0.6 0.3 -Current Size (cm) - Depth 0.1 0.1 -Total Square Cm 0.30 0.12 -Photo Taken No No -Tunneling No -Undermining/Tunneling No -Circular Undermining No -Exudate Amt Medium Medium -Exudate Type Serosanguineous -Wound Margin Thickened -Granulation Amt Large (67-100%) -Granulation Quality [place] Hyper- granulation, [place] -Slough/Fibrin Yes -Necrosis Amt Small (1-33%) Small (1-33%) -Necrotic Tissue Type Adherent Slough -Structure Exposed N/A -Texture (Angie-wound Skin Appearance) Callus, Localized Edema ,Scarring -Moisture (Angie-wound Skin Appearance) Dry/Scaly Maceration -Color (Angie-wound Skin Appearance) Erythema Erythema,Rubor -Temperature (Angie-wound Skin No Abnormality Appearance) (Pt Warm) -Tenderness on Palpation (Angie-wound No Skin Appearance) -Ulcer Cleansing Rinsed/ Wound Cleanser Irrigated with Saline -Foul Odor after Cleansing No No -Anesthetic Used 5% Lidocaine 5% Lidocaine Gel Gel WC - Nurse 2 - General Ulcer CM Notes Start: 05/20/21 08:59 Freq: Status: Active Protocol: Activity Type Activity Date Activity User E-Sign Co-Sign Detail Recorded Client Recorded Date Recorded By Document 05/20/21 09:23 MW [id number] 05/20/21 09:27 MW 05/20/21 09:23 Wound Center Nurse 2 -Time 09:23 -Correct Patient Yes -Correct Side, Site, Position Yes -Correct Procedure Yes -Procedure Performed Yes -Type of Procedure Debridement -Clinical Debridement Subcutaneous -Tissue Removed Subcutaneous -Post Debridement (cm) - Length 0.5 -Post Debridement (cm) - Width 0.6 -Post Debridement (cm) - Depth 0.1 -Total Square (Post) (cm) 0.30 -Area of Debridement (cm) - Length 0.5 -Area of Debridement (cm) - Width 0.6 -Total Square (Area) (cm) 0.30 -Tunneling No -Undermining/Tunneling No -Circular Undermining No -Wound/Ulcer Outcome Not Healed -Ulcer Cleansing Rinsed/ Irrigated with Saline -Foul Odor after Cleansing No -Bioengineered Tissue No -Bleeding Controlled with Pressure -Offloading No -Treatment Response Procedure Tolerated Well -Debridement - Subq, 1st 20sq cm Yes Pain Scale: 0-10 Numeric Is Patient Pain Free? Yes WC - Nurse 3 - General Ulcer D/C NN Start: 05/20/21 08:59 Freq: Status: Active Protocol: Activity Type Activity Date Activity User E-Sign Co-Sign Detail Recorded Client Recorded Date Recorded By Document 05/20/21 13:19 PL [id number] 05/20/21 13:20 PL 05/20/21 13:19 Wound Care Nurse 3 #4- L PLANTAR 3RD TOE -Ulcer Cleansing Rinsed/ Irrigated with Saline -Foul Odor after Cleansing No -Primary Dressing Applied Promogran [place] Matter -Primary Dressing Covered/Secured with Dry Gauze & Roll Gauze, Secured with Tape -Promogran [place] Matter 1 Left -Compression Wrap Unna Boot ($) ( single) -Size of Tubigrip Used Size E Pain Scale: 0-10 Numeric Is Patient Pain Free? Yes Wound debrided: left third toe Wound Grade/Stage: 3 Type of Debridement: Excisional debridement Anesthesia Used: 4% Lidocaine Solution Depth: in the subcutaneous layer Percentage of wound debrided: 100 Instrument Used: #15 blade Tissue Removed: fibrous, devitalized subcutaneous, biofilm, slough Severity: Fat Layer Exposed Amount of bleeding with debridement: Mild Bleeding Controlled with: Pressure Patient tolerated procedure: Patient tolerated procedure well Assessment/Plan Assessment/Plan (1) Diabetic foot ulcer associated with type 2 diabetes mellitus: CODE(S): E11.621 - Type 2 diabetes mellitus with foot ulcer; L97.509 - Non-pressure chronic ulcer of other part of unspecified foot with unspecified severity QUALIFIERS: Diabetic foot ulcer location: toe Laterality: left Non-pressure ulcer stage: with bone involvement without evidence of necrosis Qualified Code(s): E11.621 - Type 2 diabetes mellitus with foot ulcer; L97.526 - 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 involvement without evidence of necrosis (2) Osteomyelitis, unspecified: CODE(S): M86.9 - Osteomyelitis, unspecified (3) Ulcer of left foot with bone involvement without evidence of necrosis: CODE(S): L97.526 - 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 involvement without evidence of necrosis (4) Deformity of toe of left foot: CODE(S): M20.62 - Acquired deformities of toe(s), unspecified, left foot (5) Cellulitis of left lower limb: CODE(S): L03.116 - Cellulitis of left lower limb (6) Unspecified protein-calorie malnutrition: CODE(S): E46 - Unspecified protein-calorie malnutrition PLAN: I reviewed and discussed his case today. Debridement was performed today as noted in the clinical panel to all of the ulcer sites. Chart review was performed including recent hyperbaric oxygen sessions, wound center progress notes from clinical nurse practitioner Martha Alva, and emergency room visit notes. The following work up and care recommendations were made: Dressing: Promogran daily. It is also okay to apply Adaptic if this wound is getting too dry. Wash: Antibacterial soap Tissue growth optimization: To continue hyperbaric oxygen therapy for treatment of osteomyelitis and necrosis of bone. He is already been undergoing this therapy and it is going well. It is noted he is also been recently seen and treated by an ENT specialist. The purpose of this therapy was briefly reviewed today including indications and benefits. Offload: I recommend offloading the ulcer site to allow healing progression. To discontinue wearing closed shoe. He has a cam walker boot at home and it was advised to resume use and to place weight on his heel. I recommended he uses an assistive device to aid in this process if needed. He will bring this next week in which additional offloading liners will be fabricated to take pressure off of the ulcer the toe Vascular: His recent noninvasive vascular studies were reviewed from within the past year with normal ABIs and PVRs to the toe level. Systolic toe pressures of the toes were not obtained. Edema: To elevate limb at rest and reduce salt intake. Infection: It is noted he is being treated for osteomyelitis and this information was gathered through prior cultures and x-ray findings. He is also under the recent management of infectious disease and Dr. Parker (per the patient) extended his doxycycline course for 2 additional weeks. He is also scheduled to follow-up with Dr. Berry in 1 week. He reports he is on doxycycline. I did review his most recent culture results obtained at this facility including Staph aureus, actinobacter baumanni, actinomyces nauslundii. He has been seen by multiple providers including another well cleaner in the [facility] area. It is not clear if he had other cultures obtained at another [facility]. Due to his concerning x-ray findings and nonhealing wound I would also offer removal of the prominent head of the proximal phalanx of this toe in clinic next week in which this can be sent for updated bone culture and pathology evaluation. Imaging: His x-rays were reviewed 3 views of the foot from 05-19-21 without acute fracture or dislocation. The third left toe has removal of the distal middle phalanx. There is some rare fraction of the head of the proximal phalanx that is remaining and this is concerning for osteomyelitis. Adjacent edema is noted at the ulcer site as well. There is no foreign body or soft tissue emphysema. He reports he had an MRI and this is presumed to have been completed at an outside facility in which I do not have access to the results or images. He rep orts this confirmed his diagnosis of osteomyelitis. Labs: Most recent labs demonstrate white blood cell count of 9.0, ESR 32, C- reactive protein of 19.7. Pain: He is neuropathic and does not have pain. Host factors: He has multiple comorbidities that are contributing to delayed healing including diabetes. His A1c is noted to be at 6.7%. He was advised to maintain proper nutrition and protein supplementation to optimize healing. I recommend Enmanuel supplementation and samples were provided today. He understands he is at risk for amputation and would like to proceed forward with all measures to avoid this if possible. He is already tried many of the nonsurgical options. He will proceed forward with improved offloading, continued hyperbarics, and continued infectious disease management. He continues to fail nonsurgical care or has worsening status surgery is recommended. I answered all the patient's questions. To return to the wound healing center in 1 week or call sooner if the patient has any questions or concerns. The medical decision making level is moderate. There is noted moderate risk of morbidity after considering this treatment plan and diagnostic data. Considerations were given to prescription management, decisions regarding surgical options, or social determinants of health. The problems addressed require a moderate decision making level which includes one or more chronic illnesses (w/ exacerbation, progression, or side effects), two or more stable chronic illnesses, one undiagnosed new problem w/ uncertain prognosis, one acute illness with systemic symptoms, or one acute complicated injury. The medical decision making level is moderate based on data including at least three of the following: review of prior external notes, review of a test, ordering a test, assessment requiring an independent historian.
[2021-05-27 11:15] VITALS: BP 105/60; BP 153/88; PULSE 77; PULSE 78; RESP 17; RESP 20; TEMP 36.6; TEMP 36.7
--- NOTE | 2021-05-27 12:45 | PCM.HBO.PN ---
History of Present Illness Date of Service: 05/27/21 Chief Complaint: Non-healing left third toe plantar wound with osteomyelitis History of Wound: This 75-year-old diabetic male patient was seen today as a podiatry consultation for nonhealing left third toe ulcer with suspected osteomyelitis. History of diabetes mellitus and per patient his last A1c was 7.6 percent. He recently had a doxycycline oral antibiotic extension for 2 additional weeks per infectious disease specialist, Dr. Parker. He reports compliance with his medication. He denies chills, fever, nausea, vomiting, diarrhea or other illness. Patient is undergoing treatment with advanced wound care as well as hyperbaric oxygen treatment to salvage his left foot. He has been walking in a regular close shoe. He takes 30 g of additional protein supplementation does not recall the brand name. His redness has resolved since last week. His swelling has also decreased. He is with his today. Progress of Wound: stable Subjective Subjective No concerns Objective Data Objective Data Tolerating HBO today well vital signs are stable. Receiving #26 of 30 treatments Vital Signs: Vital Signs Temp Pulse Resp BP 98.0 F 77 20 H 105/60 05/27/21 11:15 05/27/21 11:15 05/27/21 11:15 05/27/21 11:15 Weight: 235 lb Body Mass Index (BMI) 30.6 Lab / Micro Data Labs: Laboratory Results - last 24 hr 05/26/21 12:46: POC Glucose 132 H 05/27/21 10:46: POC Glucose 150 H Exam Nursing Assessment and Debridement Post-Debridement Measurements and Additional Note: Post-Debridement Measurements/Treatment - Nurse 1 - General Ulcer Assessment Start: 05/20/21 08:59 Freq: Status: Active Protocol: WC.LOWEXT Activity Type Activity Date Activity User E-Sign Co-Sign Detail Recorded Client Recorded Date Recorded By Document 05/27/21 09:32 DL Desktop 05/27/21 09:38 DL 05/27/21 09:32 - Today's Visit Information Type of service Follow-up Visit (Physician/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 ) Arrival Mode Ambulatory Transfer Assistance None Patient Identification Verified (Name & Yes ) Patient Requires Transmission-Based No Precautions Finger Stick Blood Sugar(mg/dl) (if 133 indicated): Blood Sugar Stated by Patient Height and Weight Body Mass Index (BMI) 30.6 BMI Classification Obese Vital Signs Temperature (97.8 F-99.1 F) 98 F Temperature Source Temporal Pulse Rate (60-100) 77 Pulse Location Monitor Respiratory Rate (12-18) 20 H Respiratory rate source Observation Blood Pressure (90/60-120/80) 105/60 Blood Pressure Mean (mm Hg) 75 Source Monitor History Since Last Visit- (Skip if this is Patient's initial visit) Have you changed medications since your No last visit? Any new allergies or adverse reactions No Had a fall/change in ADL's that may No increase risk of falls Signs or symptoms of abuse and/or No neglect since last visit Have you been in the hospital since your No last visit? Has dressing in place as prescribed Yes Has compression in place as prescribed N/A Has offloadiing in place as prescribed Yes Experienced any changes in pain level or No management Pain Scale: 0-10 Numeric Is Patient Pain Free? Yes WC - Nurse 1 - General Ulcer Measurement Start: 05/20/21 08:59 Freq: Status: Active Protocol: Activity Type Activity Date Activity User E-Sign Co-Sign Detail Recorded Client Recorded Date Recorded By Document 05/27/21 09:32 DL Desktop 05/27/21 09:38 DL 05/27/21 09:32 Wound Center Nurse 1 #4- L PLANTAR 3RD TOE -Current Size (cm) - Length 0.4 -Current Size (cm) - Width 0.3 -Current Size (cm) - Depth 0.1 -Total Square Cm 0.12 -Photo Taken No -Exudate Amt Medium -Wound Margin Thickened -Granulation Quality Hyper- granulation, [place] -Necrosis Amt Small (1-33%) -Necrotic Tissue Type Adherent Slough -Structure Exposed N/A -Texture (Angie-wound Skin Appearance) Callus, Localized Edema ,Scarring -Moisture (Angie-wound Skin Appearance) Maceration -Color (Angie-wound Skin Appearance) Erythema,Rubor -Temperature (Angie-wound Skin No Abnormality Appearance) (Pt Warm) -Tenderness on Palpation (Angie-wound No Skin Appearance) -Ulcer Cleansing Wound Cleanser -Foul Odor after Cleansing No -Anesthetic Used 5% Lidocaine Gel WC - Nurse 2 - General Ulcer CM Notes Start: 05/20/21 08:59 Freq: Status: Active Protocol: Activity Type Activity Date Activity User E-Sign Co-Sign Detail Recorded Client Recorded Date Recorded By Document 05/27/21 10:56 PL Laptop 05/27/21 11:01 PL 05/27/21 10:56 Wound Center Nurse 2 -Time 10:12 -Correct Patient Yes -Correct Side, Site, Position Yes -Correct Procedure Yes -Procedure Performed Yes -Type of Procedure Debridement -Clinical Debridement Subcutaneous -Tissue Removed Subcutaneous -Post Debridement (cm) - Length 0.4 -Post Debridement (cm) - Width 0.3 -Post Debridement (cm) - Depth 1.6 -Total Square (Post) (cm) 0.12 -Area of Debridement (cm) - Length 0.4 -Area of Debridement (cm) - Width 0.3 -Total Square (Area) (cm) 0.12 -Tunneling No -Undermining/Tunneling No -Circular Undermining No -Wound/Ulcer Outcome Not Healed -Ulcer Cleansing Rinsed/ Irrigated with Saline -Foul Odor after Cleansing No -Bioengineered Tissue No -Debridement - Subq, 1st 20sq cm Yes Pain Scale: 0-10 Numeric Is Patient Pain Free? Yes WC - Nurse 3 - General Ulcer D/C NN Start: 05/20/21 08:59 Freq: Status: Active Protocol: Activity Type Activity Date Activity User E-Sign Co-Sign Detail Recorded Client Recorded Date Recorded By Document 05/27/21 11:01 PL Laptop 05/27/21 11:01 05/27/21 11:01 Wound Care Nurse 3 #4- L PLANTAR 3RD TOE -Ulcer Cleansing Rinsed/ Irrigated with Saline -Foul Odor after Cleansing No -Primary Dressing Applied Promogran -Primary Dressing Covered/Secured with Dry Gauze & Roll Gauze, Secured with Tape -Promogran 1 Pain Scale: 0-10 Numeric Is Patient Pain Free? 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: CODE(S): L97.526 - 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 involvement without evidence of necrosis PLAN: Continue HBO treatments vital signs stable on discharge (2) Osteomyelitis, unspecified: CODE(S): M86.9 - Osteomyelitis, unspecified QUALIFIERS: Osteomyelitis type: chronic multifocal Osteomyelitis location: foot Laterality: left Qualified Code(s): M86.372 - Chronic multifocal osteomyelitis, left ankle and foot (3) Unspecified protein-calorie malnutrition: CODE(S): E46 - Unspecified protein-calorie malnutrition QUALIFIERS: Protein-calorie malnutrition severity: moderate Qualified Code(s): E44.0 - Moderate protein-calorie malnutrition (4) Deformity of toe of left foot: CODE(S): M20.62 - Acquired deformities of toe(s), unspecified, left foot (5) Cellulitis of left lower limb: CODE(S): L03.116 - Cellulitis of left lower limb
[2021-05-27 13:06] LABS: Bedside Glucose 121 mg/dL (70-110)
[2021-06-01 10:36] LABS: Bedside Glucose 156 mg/dL (70-110)
--- NOTE | 2021-06-01 11:09 | PCM.HBO.PN ---
History of Present Illness Date of Service: 06/01/21 Chief Complaint: Non-healing left third toe plantar wound with osteomyelitis History of Wound: This 75-year-old diabetic male patient was seen today as a podiatry consultation for nonhealing left third toe ulcer with suspected osteomyelitis. History of diabetes mellitus and per patient his last A1c was 7.6 percent. He recently had a doxycycline oral antibiotic extension for 2 additional weeks per infectious disease specialist, Dr. Parker. He reports compliance with his medication. He denies chills, fever, nausea, vomiting, diarrhea or other illness. Patient is undergoing treatment with advanced wound care as well as hyperbaric oxygen treatment to salvage his left foot. He has been walking in a regular close shoe. He takes 30 g of additional protein supplementation does not recall the brand name. His redness has resolved since last week. His swelling has also decreased. He is with his today. Progress of Wound: stable Subjective Subjective Today's hyperbaric oxygen therapy session represents the 27th session of a planned 30 such sessions. Hyperbaric oxygen therapy was administered as per the facility's protocol. Hyperbaric oxygen therapy was administered at 2 tulio for 90 minutes with no air breaks. Patient tolerated hyperbaric oxygen therapy well, without complaints or complications. Upon emergence from the hyperbaric chamber, the patient's vital signs remained stable. Pre- and post- treatment blood sugars are recorded elsewhere. Objective Data Objective Data Vital Signs: Vital Signs Temp Pulse Resp BP 98.0 F 77 20 H 105/60 05/27/21 11:15 05/27/21 11:15 05/27/21 11:15 05/27/21 11:15 Weight: 235 lb Body Mass Index (BMI) 30.6 Lab / Micro Data Labs: Laboratory Results - last 24 hr 06/01/21 10:32: POC Glucose 156 H Exam Physical Exam Const oriented x3 General Appearance: cooperative HEENT normocephalic Tympanic Membrane: TM's normal bilaterally Neck General: normal visual inspection Resp normal respiratory effort Effort and Inspection: able to speak in complete sentences Auscultation: clear to auscultation bilaterally Cardio Negative for regular rate or regular rhythm GI Palpation: soft Neuro oriented x3 Psych Appearance: grossly normal Speech: normal speech Thought Content: normal thought content Judgement: judgement good Assessment/Plan Assessment/Plan (1) Nonhealing nonsurgical wound with fat layer exposed: CODE(S): T14.8XXA - Other injury of unspecified body region, initial encounter (2) Osteomyelitis of great toe of left foot: CODE(S): M86.9 - Osteomyelitis, unspecified (3) 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 (4) Diabetic foot ulcer associated with type 2 diabetes mellitus: CODE(S): E11.621 - Type 2 diabetes mellitus with foot ulcer; L97.509 - Non-pressure chronic ulcer of other part of unspecified foot with unspecified severity QUALIFIERS: Diabetic foot ulcer location: toe Laterality: left Non-pressure ulcer stage: with bone involvement without evidence of necrosis Qualified Code(s): E11.621 - Type 2 diabetes mellitus with foot ulcer; L97.526 - 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 involvement without evidence of necrosis (5) Decubitus ulcer limited to breakdown of skin (stage 2): CODE(S): L89.92 - Pressure ulcer of unspecified site, stage 2 QUALIFIERS: Laterality: left Pressure injury location: toe Qualified Code(s): L89.892 - Pressure ulcer of other site, stage 2 (6) Non-healing surgical wound: CODE(S): T81.89XA - Other complications of procedures, not elsewhere classified, initial encounter QUALIFIERS: Encounter type: subsequent encounter Qualified Code(s): T81.89XD - Other complications of procedures, not elsewhere classified, subsequent encounter (7) Diabetes mellitus: CODE(S): E11.9 - Type 2 diabetes mellitus without complications QUALIFIERS: Diabetes mellitus complication detail: with foot ulcer Diabetes mellitus complication status: with skin complications Diabetes mellitus computer terminal operator insulin use: without computer terminal operator use Diabetes mellitus type: type 2 Qualified Code(s): E11.621 - Type 2 diabetes mellitus with foot ulcer; L97.509 - Non-pressure chronic ulcer of other part of unspecified foot with unspecified severity (8) Chronic osteomyelitis involving ankle and foot: CODE(S): M86.679 - Other chronic osteomyelitis, unspecified ankle and foot QUALIFIERS: Laterality: left Qualified Code(s): M86.672 - Other chronic osteomyelitis, left ankle and foot (9) Acute osteomyelitis involving ankle and foot: CODE(S): M86.179 - Other acute osteomyelitis, unspecified ankle and foot
[2021-06-01 11:20] VITALS: BP 135/69; BP 143/70; PULSE 58; PULSE 75; RESP 16; RESP 17; TEMP 36.7
[2021-06-01 12:50] LABS: Bedside Glucose 122 mg/dL (70-110)
[2021-06-02 10:45] LABS: Bedside Glucose 167 mg/dL (70-110)
[2021-06-02 11:01] VITALS: BP 140/73; BP 158/85; PULSE 68; PULSE 74; RESP 16; RESP 17; TEMP 36.7; TEMP 36.8
[2021-06-02 12:56] LABS: Bedside Glucose 146 mg/dL (70-110)
--- NOTE | 2021-06-02 13:08 | HBO.PN.PCM_ITS ---
History of Present Illness Date of Service: 06/02/21 Chief Complaint: Non-healing left third toe plantar wound with osteomyelitis History of Wound: This 75-year-old diabetic male patient was seen today as a podiatry consultation for nonhealing left third toe ulcer with suspected osteomyelitis. History of diabetes mellitus and per patient his last A1c was 7.6 percent. He recently had a doxycycline oral antibiotic extension for 2 additional weeks per infectious disease specialist, Dr. Parker. He reports compliance with his medication. He denies chills, fever, nausea, vomiting, diarrhea or other illness. Patient is undergoing treatment with advanced wound care as well as hyperbaric o xygen treatment to salvage his left foot. He has been walking in a regular close shoe. He takes 30 g of additional protein supplementation does not recall the brand name. His redness has resolved since last week. His swelling has also decreased. He is with his today. Progress of Wound: stable Subjective Subjective Today's session of hyperbaric oxygen therapy represents the 28th session of a planned 30 such sessions. Hyperbaric oxygen therapy was administered as per the facility's protocol. Hyperbaric oxygen therapy was administered at 2 tulio for 90 minutes, with no air breaks. Patient tolerated hyperbaric oxygen therapy well, without complaints or complications. Upon emergence from the hyperbaric chamber, the patient's vital signs remained stable. He was discharged in good condition. The patient's pre and post treatment blood glucose measurements are documented elsewhere. Objective Data Objective Data Vital Signs: Vital Signs Temp Pulse Resp BP 98.2 F 68 17 140/73 H 06/02/21 11:01 06/02/21 11:01 06/02/21 11:01 06/02/21 11:01 Weight: 235 lb Body Mass Index (BMI) 30.6 Lab / Micro Data Labs: Laboratory Results - last 24 hr 06/02/21 10:39: POC Glucose 167 H 06/02/21 12:49: POC Glucose 146 H Exam Physical Exam Const alert, oriented x3, no apparent distress and well nourished General Appearance: cooperative and well developed HEENT normocephalic Head and Scalp: atraumatic Eyes PERRL and EOMs intact bilaterally Resp normal respiratory effort and no use of accessory muscles Effort and Inspection: able to speak in complete sentences Psych affect normal Appearance: grossly normal and well kempt Assessment/Plan Assessment/Plan (1) 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 (2) Chronic osteomyelitis involving ankle and foot: CODE(S): M86.679 - Other chronic osteomyelitis, unspecified ankle and foot QUALIFIERS: Laterality: left Qualified Code(s): M86.672 - Other chronic osteomyelitis, left ankle and foot (3) Osteomyelitis, unspecified: CODE(S): M86.9 - Osteomyelitis, unspecified QUALIFIERS: Osteomyelitis type: chronic multifocal Osteomyelitis location: foot Laterality: left Qualified Code(s): M86.372 - Chronic multifocal osteomyelitis, left ankle and foot (4) Cellulitis of left lower limb: CODE(S): L03.116 - Cellulitis of left lower limb (5) Diabetic foot ulcer associated with type 2 diabetes mellitus: CODE(S): E11.621 - Type 2 diabetes mellitus with foot ulcer; L97.509 - Non-pressure chronic ulcer of other part of unspecified foot with unspecified severity QUALIFIERS: Diabetic foot ulcer location: toe Laterality: left Non-pressure ulcer stage: with bone involvement without evidence of necrosis Qualified Code(s): E11.621 - Type 2 diabetes mellitus with foot ulcer; L97.526 - 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 involvement without evidence of necrosis PLAN: The patient appears to be tolerating hyperbaric oxygen therapy well, which will be continued as per the patient's medical plan.
[2021-06-03 14:12] VITALS: BP 166/80; PULSE 76; RESP 18; TEMP 36.5; BMI 30.6
--- NOTE | 2021-06-03 16:23 | PN.PCM_ITS ---
History of Present Illness Chief Complaint: Non-healing left third toe plantar wound with osteomyelitis History of Wound: This 75-year-old diabetic male patient was seen today as a podiatry consultation for nonhealing left third toe ulcer with suspected osteomyelitis. History of diabetes mellitus and per patient his last A1c was 7.6 percent. He recently had a doxycycline oral antibiotic extension for 2 additional weeks per infectious disease specialist, Dr. Parker. He reports compliance with his medication. He denies chills, fever, nausea, vomiting, diarrhea or other illness. Patient is undergoing treatment with advanced wound care as well as hyperbaric oxygen treatment to salvage his left foot. He has been walking in a regular close shoe. He takes 30 g of additional protein supplementation does not recall the brand name. His redness has resolved since last week. His swelling has also decreased. He is with his today. Progress of Wound: stable Objective Data Objective Data Vital Signs: Vital Signs Temp Pulse Resp BP 97.7 F L 76 18 166/80 H 06/03/21 14:12 06/03/21 14:12 06/03/21 14:12 06/03/21 14:12 Weight: 106.594 kg Body Mass Index (BMI) 30.6 Debridement Note Debridement Note Post-Debridement Measurements and Additional Note: Post-Debridement Measurements/Treatment - Nurse 1 - General Ulcer Assessment Start: 05/20/21 08:59 Freq: Status: Active Protocol: [email or web address] Activity Type Activity Date Activity User E-Sign Co-Sign Detail Recorded Client Recorded Date Recorded By Document 05/20/21 09:00 PL [id number] 05/20/21 09:09 PL Document 05/27/21 09:32 DL Desktop 05/27/21 09:38 DL Document 06/03/21 14:12 ML [id number] 06/03/21 14:25 ML 05/20/21 05/27/21 06/03/21 09:00 09:32 14:12 - Today's Visit Information Type of service Follow-up Visit Follow-up Visit Follow-up Visit (Physician/CHIEF OF FIELD OPERATIONS (Physician/CHIEF OF FIELD OPERATIONS (Physician/CHIEF OF FIELD OPERATIONS ) ) ) Arrival Mode Ambulatory Ambulatory Ambulatory Transfer Assistance None None None Patient Identification Verified (Name & Yes Yes Yes ) Patient Requires Transmission-Based No No No Precautions Safety Precautions NA NA Finger Stick Blood Sugar(mg/dl) (if 135 133 indicated): Blood Sugar Stated by Stated by Patient Patient Height and Weight Body Mass Index (BMI) 30.6 30.6 30.6 BMI Classification Obese Obese Obese Vital Signs Temperature (97.8 F-99.1 F) 98.6 F 98 F 97.7 F L Temperature Source Temporal Temporal Temporal Pulse Rate (60-100) 71 77 76 Pulse Location Monitor Monitor Respiratory Rate (12-18) 18 20 H 18 Respiratory rate source Observation Observation Blood Pressure (90/60-120/80) 166/78 H 105/60 166/80 H Blood Pressure Mean (mm Hg) 107 75 108 Source Monitor Monitor Position Sitting Blood Pressure Location Left Arm History Since Last Visit- (Skip if this is Patient's initial visit) Have you changed medications since your No No No last visit? Any new allergies or adverse reactions No No No Had a fall/change in ADL's that may No No No increase risk of falls Signs or symptoms of abuse and/or No No No neglect since last visit Have you been in the hospital since your Yes No No last visit? Has dressing in place as prescribed Yes Yes Yes Has compression in place as prescribed N/A N/A N/A Has offloadiing in place as prescribed N/A Yes N/A Experienced any changes in pain level or No No No management Left Footwear Removable Cast Walker/Walking Boot Right Footwear Regular Shoe Pain Scale: 0-10 Numeric Is Patient Pain Free? Yes Yes Yes WC - Nurse 1 - General Ulcer Measurement Start: 05/20/21 08:59 Freq: Status: Active Protocol: Activity Type Activity Date Activity User E-Sign Co-Sign Detail Recorded Client Recorded Date Recorded By Document 05/20/21 09:00 PL [id number] 05/20/21 09:09 PL Document 05/27/21 09:32 DL Desktop 05/27/21 09:38 DL Document 06/03/21 14:12 ML [id number] 06/03/21 14:25 ML 05/20/21 05/27/21 06/03/21 09:00 09:32 14:12 Wound Center Nurse 1 #4- L PLANTAR 3RD TOE -Combined with other wound No -Current Size (cm) - Length 0.5 0.4 1 -Current Size (cm) - Width 0.6 0.3 0.8 -Current Size (cm) - Depth 0.1 0.1 0.4 -Total Square Cm 0.30 0.12 0.8 -Photo Taken No No -Tunneling No -Undermining/Tunneling No -Circular Undermining No -Exudate Amt Medium Medium Medium -Exudate Type Serosanguineous Serosanguineous -Wound Margin Thickened Distinct, Outline Attached -Granulation Amt Large (67-100%) Medium (34-66%) -Granulation Quality Sperry Hyper- granulation, Sperry -Slough/Fibrin Yes Yes -Necrosis Amt Small (1-33%) Small (1-33%) Medium (34-66%) -Necrotic Tissue Type Adherent Slough Adherent Slough -Structure Exposed N/A -Texture (Angie-wound Skin Appearance) Callus, Assessed Localized Edema ,Scarring -Moisture (Angie-wound Skin Appearance) Dry/Scaly Maceration Maceration -Color (Angie-wound Skin Appearance) Erythema Erythema,Rubor Assessed -Temperature (Angie-wound Skin No Abnormality No Abnormality Appearance) (Pt Warm) (Pt Warm) -Tenderness on Palpation (Angie-wound No No Skin Appearance) -Ulcer Cleansing Rinsed/ Wound Cleanser Wound Cleanser Irrigated with Saline -Foul Odor after Cleansing No No No -Anesthetic Used 5% Lidocaine 5% Lidocaine 4% Lidocaine Gel Gel Solution WC - Nurse 2 - General Ulcer CM Notes Start: 05/20/21 08:59 Freq: Status: Active Protocol: Activity Type Activity Date Activity User E-Sign Co-Sign Detail Recorded Client Recorded Date Recorded By Document 05/20/21 09:23 MW [id number] 05/20/21 09:27 MW Document 05/27/21 10:56 PL Laptop 05/27/21 11:01 PL Document 06/03/21 16:03 [id number] 06/03/21 16:16 05/20/21 05/27/21 06/03/21 09:23 10:56 16:03 Wound Center Nurse 2 #4- L PLANTAR 3RD TOE -Time 09:23 10:12 16:04 -Correct Patient Yes Yes Yes -Correct Side, Site, Position Yes Yes Yes -Correct Procedure Yes Yes Yes -Procedure Performed Yes Yes Yes -Type of Procedure Debridement Debridement Debridement -Clinical Debridement Subcutaneous Subcutaneous Bone -Tissue Removed Subcutaneous Subcutaneous Slough -Post Debridement (cm) - Length 0.5 0.4 2.4 -Post Debridement (cm) - Width 0.6 0.3 0.6 -Post Debridement (cm) - Depth 0.1 1.6 2.8 -Total Square (Post) (cm) 0.30 0.12 1.44 -Area of Debridement (cm) - Length 0.5 0.4 2.4 -Area of Debridement (cm) - Width 0.6 0.3 0.6 -Total Square (Area) (cm) 0.30 0.12 1.44 -Tunneling No No No -Undermining/Tunneling No No No -Circular Undermining No No No -Wound/Ulcer Outcome Not Healed Not Healed Not Healed -Ulcer Cleansing Rinsed/ Rinsed/ Rinsed/ Irrigated with Irrigated with Irrigated with Saline Saline Saline -Foul Odor after Cleansing No No No -Bioengineered Tissue No No No -Bleeding Controlled with Pressure Pressure -Offloading No Yes -Type of Offloading Camwalker -Treatment Response Procedure Procedure Tolerated Well Tolerated Well -Debridement - Subq, 1st 20sq cm Yes Yes No -Debridement - Bone, 1st 20sq cm Yes Pain Scale: 0-10 Numeric Is Patient Pain Free? Yes Yes Yes - Nurse 3 - General Ulcer D/C NN Start: 05/20/21 08:59 Freq: Status: Active Protocol: Activity Type Activity Date Activity User E-Sign Co-Sign Detail Recorded Client Recorded Date Recorded By Document 05/20/21 13:19 PL [id number] 05/20/21 13:20 PL Document 05/27/21 11:01 PL Laptop 05/27/21 11:01 PL 05/20/21 05/27/21 13:19 11:01 Wound Care Nurse 3 #4- L PLANTAR 3RD TOE -Ulcer Cleansing Rinsed/ Rinsed/ Irrigated with Irrigated with Saline Saline -Foul Odor after Cleansing No No -Primary Dressing Applied Promogran Promogran Anne Marie Matter -Primary Dressing Covered/Secured with Dry Gauze & Dry Gauze & Roll Gauze, Roll Gauze, Secured with Secured with Tape Tape -Promogran 1 -Promogran Anne Marie Matter 1 Left -Compression Wrap Unna Boot ($) ( single) -Size of Tubigrip Used Size E Pain Scale: 0-10 Numeric Is Patient Pain Free? Yes Yes
--- NOTE | 2021-06-03 19:13 | PCM.PN.ID ---
Physical Exam Narrative C/o several days L 3rd toe swelling, redness, and pain. Last dose of doxy this AM. L 1st toe much improved. Const alert and no apparent distress General Appearance: cooperative Resp normal air movement and clear to auscultation bilaterally Cardio regular rate and regular rhythm GI normal to inspection, nondistended, normoactive bowel sounds Skin Skin Narrative: L 3rd toe swelling and redness, plantar wound ID ID: Route of nutrition/ use of supplements: [] Nutritional Intake: [] IV Site: [] Skelton Catheter: [] Assessment & Plan Assessment/Plan (1) Osteomyelitis, unspecified: QUALIFIERS: Osteomyelitis type: chronic multifocal Osteomyelitis location: foot Laterality: left Qualified Code(s): M86.372 - Chronic multifocal osteomyelitis, left ankle and foot PLAN: Completed course of doxy for L 1st toe osteo. Now with L 3rd toe infected wound and possible osteo. Would send wound cx. Will follow, d/w Dr. Unger
--- NOTE | 2021-06-04 | BON_PTH ---
PATIENT: YESSI GRACE LOC: U#:[id number] AGE/SX: 75/M ROOM: RE06/10/[address]: ANGELICA Ruiz : 1945 BED: DIS: 06/13/2021 SPEC #: [id number] RECD: 06/04/21 13:31 STATUS: TITUS RE #: [id number] MOIRA: 06/04/21 00:[address]: Gisell Unger DEPT: SURGICAL PATHOLOGY RECD BY: Glenroy Valentin ENTERED: 06/04/21 13:31 SP TYPE: Bone OTHR DR: MD Dr. Glenroy Tobin, DPM ANGELICA Ruiz Tissues: Bone of foot, NOS Procedures: Decalcification bone/plaque Surgery Specimen Level V Comments: @ Ordering doctor for DEC edited from CAROLE to @ by SAJI at 06/04/21 1435 @ Ordering doctor for SUIII edited from CAROLE to DR.JFASCI Alexander LENNON at 06/04/21 1435 @ Submitting doctor edited from CAROLE to @ by SAJI at 06/04/21 1435 HEADER OPERATION: Bone biopsy left third toe PRE-OP DIAGNOSIS: Chronic ulcer with bone; osteomyelitis suspected TISSUE SUBMITTED: Phalanx bone left third toe MICROSCOPIC DIAGNOSIS Phalanx of left third toe, bone biopsy: Acute osteomyelitis. AM:florentin 06/08/2021 MICROSCOPIC DESCRIPTION Slides are reviewed. GROSS DESCRIPTION Received in fixative is one container labeled with the patient's name and designated left third toe biopsy. The specimen consists of a single irregular fragment of vides bone measuring 0.9 x 0.5 x 0.3 cm. The specimen is totally submitted in one cassette after decalcification. / AM:florentin 06/04/21 TC:2 CPT: 47441, 83310
[2021-06-05 10:01] LABS: Bedside Glucose 210 mg/dL (70-110)
[2021-06-05 11:53] VITALS: BP 134/67; BP 146/65; PULSE 63; PULSE 75; RESP 16; TEMP 36.3
[2021-06-05 12:30] LABS: Bedside Glucose 142 mg/dL (70-110)
--- NOTE | 2021-06-05 12:48 | PCM.HBO.PN ---
History of Present Illness Date of Service: 06/05/21 Chief Complaint: Non-healing left third toe plantar wound with osteomyelitis History of Wound: This 75-year-old diabetic male patient was seen today as a podiatry consultation for nonhealing left third toe ulcer with suspected osteomyelitis. History of diabetes mellitus and per patient his last A1c was 7.6 percent. He reports compliance with his medication. He denies chills, fever, nausea, vomiting, diarrhea or other illness. Patient is undergoing treatment with advanced wound care as well as hyperbaric oxygen treatment to salvage his left foot. He has been walking in a regular close shoe. His swelling has also decreased. He is with his today. He was also seen by infectious disease specialist, Dr. Berry, today as well. He is interested in proceeding with hyperbaric oxygen therapy if possible. He also brought his offloading cam walker boot for adjustment today. Subjective Subjective Today's session of hyperbaric oxygen therapy represents the 29th session of a planned 30 such sessions. Hyperbaric oxygen therapy was administered as per the facility's protocol. Hyperbaric oxygen therapy was administered at 2 tulio for 90 minutes, with no air breaks. Patient tolerated hyperbaric oxygen therapy well, without complaints or complications. Upon emergence from the hyperbaric chamber, the patient's vital signs remained stable. He was discharged in good condition. The patient's pre and post treatment blood glucose measurements are documented elsewhere. Objective Data Objective Data Vital Signs: Vital Signs Temp Pulse Resp BP 97.3 F L 63 16 134/67 H 06/05/21 11:53 06/05/21 11:53 06/05/21 11:53 06/05/21 11:53 Weight: 106.594 kg Body Mass Index (BMI) 30.6 Lab / Micro Data Labs: Laboratory Results - last 24 hr 06/05/21 09:56: POC Glucose 210 H 06/05/21 12:11: POC Glucose 142 H Exam Physical Exam Const alert, oriented x3, no apparent distress and healthy appearing General Appearance: cooperative HEENT normocephalic, head/scalp atraumatic, EAC's normal and TM's normal bilaterally HEENT Narrative: myringotomy tubes present and patent bilateral TMs Mouth: oral and palatal mucosa normal Psych thought process normal, cooperative and affect normal Nursing Assessment and Debridement Post-Debridement Measurements and Additional Note: Post-Debridement Measurements/Treatment WC - Nurse 1 - General Ulcer Assessment Start: 05/20/21 08:59 Freq: Status: Active Protocol: REMA Activity Type Activity Date Activity User E-Sign Co-Sign Detail Recorded Client Recorded Date Recorded By Document 06/03/21 14:12 ML [id number] 06/03/21 14:25 ML 06/03/21 14:12 WC - Today's Visit Information Type of service Follow-up Visit (Physician/DIRECTOR SECURITY MANAGEMENT ) Arrival Mode Ambulatory Transfer Assistance None Patient Identification Verified (Name & Yes ) Patient Requires Transmission-Based No Precautions Safety Precautions NA Height and Weight Body Mass Index (BMI) 30.6 BMI Classification Obese Vital Signs Temperature (97.8 F-99.1 F) 97.7 F L Temperature Source Temporal Pulse Rate (60-100) 76 Pulse Location Monitor Respiratory Rate (12-18) 18 Respiratory rate source Observation Blood Pressure (90/60-120/80) 166/80 H Blood Pressure Mean (mm Hg) 108 Source Monitor Position Sitting Blood Pressure Location Left Arm History Since Last Visit- (Skip if this is Patient's initial visit) Have you changed medications since your No last visit? Any new allergies or adverse reactions No Had a fall/change in ADL's that may No increase risk of falls Signs or symptoms of abuse and/or No neglect since last visit Have you been in the hospital since your No last visit? Has dressing in place as prescribed Yes Has compression in place as prescribed N/A Has offloadiing in place as prescribed N/A Experienced any changes in pain level or No management Left Footwear Removable Cast Walker/Walking Boot Right Footwear Regular Shoe Pain Scale: 0-10 Numeric Is Patient Pain Free? Yes - Nurse 1 - General Ulcer Measurement Start: 05/20/21 08:59 Freq: Status: Active Protocol: Activity Type Activity Date Activity User E-Sign Co-Sign Detail Recorded Client Recorded Date Recorded By Document 06/03/21 14:12 ML [id number] 06/03/21 14:25 ML 06/03/21 14:12 Wound Center Nurse 1 #4- L PLANTAR 3RD TOE -Current Size (cm) - Length 1 -Current Size (cm) - Width 0.8 -Current Size (cm) - Depth 0.4 -Total Square Cm 0.8 -Exudate Amt Medium -Exudate Type Serosanguineous -Wound Margin Distinct, Outline Attached -Granulation Amt Medium (34-66%) -Slough/Fibrin Yes -Necrosis Amt Medium (34-66%) -Necrotic Tissue Type Adherent Slough -Texture (Angie-wound Skin Appearance) Assessed -Moisture (Angie-wound Skin Appearance) Maceration -Color (Angie-wound Skin Appearance) Assessed -Temperature (Angie-wound Skin No Abnormality Appearance) (Pt Warm) -Tenderness on Palpation (Angie-wound No Skin Appearance) -Ulcer Cleansing Wound Cleanser -Foul Odor after Cleansing No -Anesthetic Used 4% Lidocaine Solution WC - Nurse 2 - General Ulcer CM Notes Start: 05/20/21 08:59 Freq: Status: Active Protocol: Activity Type Activity Date Activity User E-Sign Co-Sign Detail Recorded Client Recorded Date Recorded By Document 06/03/21 16:03 ZION [id number] 06/03/21 16:16 ZION 06/03/21 16:03 Wound Center Nurse 2 -Time 16:04 -Correct Patient Yes -Correct Side, Site, Position Yes -Correct Procedure Yes -Procedure Performed Yes -Type of Procedure Debridement -Clinical Debridement Bone -Tissue Removed Slough -Post Debridement (cm) - Length 2.4 -Post Debridement (cm) - Width 0.6 -Post Debridement (cm) - Depth 2.8 -Total Square (Post) (cm) 1.44 -Area of Debridement (cm) - Length 2.4 -Area of Debridement (cm) - Width 0.6 -Total Square (Area) (cm) 1.44 -Tunneling No -Undermining/Tunneling No -Circular Undermining No -Wound/Ulcer Outcome Not Healed -Ulcer Cleansing Rinsed/ Irrigated with Saline -Foul Odor after Cleansing No -Bioengineered Tissue No -Bleeding Controlled with Pressure -Offloading Yes -Type of Offloading Camwalker -Treatment Response Procedure Tolerated Well -Debridement - Subq, 1st 20sq cm No -Debridement - Bone, 1st 20sq cm Yes Pain Scale: 0-10 Numeric Is Patient Pain Free? Yes - Nurse 3 - General Ulcer D/C NN Start: 05/20/21 08:59 Freq: Status: Active Protocol: Activity Type Activity Date Activity User E-Sign Co-Sign Detail Recorded Client Recorded Date Recorded By Document 06/03/21 16:33 ML [id number] 06/03/21 16:34 ML 06/03/21 16:33 Wound Care Nurse 3 #4- L PLANTAR 3RD TOE -Ulcer Cleansing Rinsed/ Irrigated with Saline -Foul Odor after Cleansing No -Other Dressing BETADINE,WET TO DRY -Primary Dressing Covered/Secured with Dry Gauze & Roll Gauze, Secured with Tape WC - Visit Discharge Discharge Condition Stable Ambulatory Status Ambulatory Medication Reconcilliation completed & No provided to patient/care provider Clinical Summary of Care Provided Yes Assessment/Plan Assessment/Plan (1) Non-pressure chronic ulcer of other part of left foot with necrosis of bone: CODE(S): L97.524 - Non-pressure chronic ulcer of other part of left foot with necrosis of bone (2) Cellulitis of left lower limb: CODE(S): L03.116 - Cellulitis of left lower limb (3) Ulcer of left foot with bone involvement without evidence of necrosis: CODE(S): L97.526 - 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 involvement without evidence of necrosis (4) Osteomyelitis, unspecified: CODE(S): M86.9 - Osteomyelitis, unspecified QUALIFIERS: Osteomyelitis type: chronic multifocal Osteomyelitis location: foot Laterality: left Qualified Code(s): M86.372 - Chronic multifocal osteomyelitis, left ankle and foot (5) Diabetic foot ulcer associated with type 2 diabetes mellitus: CODE(S): E11.621 - Type 2 diabetes mellitus with foot ulcer; L97.509 - Non-pressure chronic ulcer of other part of unspecified foot with unspecified severity QUALIFIERS: Diabetic foot ulcer location: toe Laterality: left Non-pressure ulcer stage: with bone involvement without evidence of necrosis Qualified Code(s): E11.621 - Type 2 diabetes mellitus with foot ulcer; L97.526 - 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 involvement without evidence of necrosis (6) Osteomyelitis of great toe of left foot: CODE(S): M86.9 - Osteomyelitis, unspecified PLAN: The patient appears to be tolerating hyperbaric oxygen therapy well, which will be continued as per his medical treatment plan.
[2021-06-09 11:11] LABS: Bedside Glucose 126 mg/dL (70-110)
[2021-06-09 11:11] LABS: Bedside Glucose 144 mg/dL (70-110)
[2021-06-09 11:29] VITALS: BP 136/69; BP 150/74; PULSE 65; PULSE 70; RESP 16; RESP 6; TEMP 36.7; TEMP 36.8
[2021-06-09 13:06] LABS: Bedside Glucose 146 mg/dL (70-110)
--- NOTE | 2021-06-09 13:59 | HBO.PN.PCM_ITS ---
History of Present Illness Date of Service: 06/09/21 Chief Complaint: Non-healing left third toe plantar wound with osteomyelitis History of Wound: This 75-year-old diabetic male patient was seen today as a podiatry consultation for nonhealing left third toe ulcer with suspected osteomyelitis. History of diabetes mellitus and per patient his last A1c was 7.6 percent. He reports compliance with his medication. He denies chills, fever, nausea, vomiting, diarrhea or other illness. Patient is undergoing treatment with advanced wound care as well as hyperbaric oxygen treatment to salvage his left foot. He has been walking in a regular close shoe. His swelling has also decreased. He is with his today. He was also seen by infectious disease specialist, Dr. Berry, today as well. He is interested in proceeding with hyperbaric oxygen therapy if possible. He also brought his offloading cam walker boot for adjustment today. Progress of Wound: Today represents the 30th session of hyperbaric oxygen therapy, of a planned 30 such sessions. Subjective Subjective Hyperbaric oxygen therapy was administered as per the facility's protocol. Hyperbaric oxygen therapy was administered at 2 tulio for 90 minutes with no air breaks. The patient tolerated hyperbaric oxygen therapy well, without complaints or complications. Upon emergence from the hyperbaric chamber, the p atient's vital signs remained stable. He was discharged in good condition. The patient's pre and post procedure blood glucose measurements are documented elsewhere. Objective Data Objective Data Vital Signs: Vital Signs Temp Pulse Resp BP 98.2 F 70 6 L 136/69 H 06/09/21 11:29 06/09/21 11:29 06/09/21 11:29 06/09/21 11:29 Weight: 235 lb Body Mass Index (BMI) 30.6 Lab / Micro Data Labs: Laboratory Results - last 24 hr 06/09/21 10:39: POC Glucose 126 H 06/09/21 11:01: POC Glucose 144 H 06/09/21 13:03: POC Glucose 146 H Exam Physical Exam Const alert, oriented x3, no apparent distress and well nourished General Appearance: cooperative and well developed HEENT normocephalic Head and Scalp: atraumatic Eyes PERRL and EOMs intact bilaterally Resp normal respiratory effort and no use of accessory muscles Effort and Inspection: able to speak in complete sentences Psych affect normal Appearance: grossly normal Assessment/Plan Assessment/Plan (1) Non-pressure chronic ulcer of other part of left foot with necrosis of bone: CODE(S): L97.524 - Non-pressure chronic ulcer of other part of left foot with necrosis of bone (2) Cellulitis of left lower limb: CODE(S): L03.116 - Cellulitis of left lower limb (3) Deformity of toe of left foot: CODE(S): M20.62 - Acquired deformities of toe(s), unspecified, left foot (4) Ulcer of left foot with bone involvement without evidence of necrosis: CODE(S): L97.526 - 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 involvement without evidence of necrosis (5) Osteomyelitis, unspecified: CODE(S): M86.9 - Osteomyelitis, unspecified QUALIFIERS: Osteomyelitis type: chronic multifocal Osteomyelitis location: foot Laterality: left Qualified Code(s): M86.372 - Chronic multifocal osteomyelitis, left ankle and foot (6) 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 (7) Diabetic foot ulcer associated with type 2 diabetes mellitus: CODE(S): E11.621 - Type 2 diabetes mellitus with foot ulcer; L97.509 - Non-pressure chronic ulcer of other part of unspecified foot with unspecified severity QUALIFIERS: Diabetic foot ulcer location: toe Laterality: left Non-pressure ulcer stage: with bone involvement without evidence of necrosis Qualified Code(s): E11.621 - Type 2 diabetes mellitus with foot ulcer; L97.526 - 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 involvement without evidence of necrosis PLAN: The patient appears to have tolerated his sessions of hyperbaric oxygen therapy well, which have now reached their intended conclusion. He will return at a later date for reassessment as to the benefits of hyperbaric oxygen therapy, and a decision as to whether any further recommendations are to be considered.
[2021-06-10 09:59] VITALS: BP 168/92; PULSE 77; RESP 18; TEMP 36.1; BMI 30.6
--- NOTE | 2021-06-10 12:01 | PN.PCM_ITS ---
History of Present Illness Date of Service: 06/10/21 Chief Complaint: Non-healing left third toe plantar wound with osteomyelitis History of Wound: This 75-year-old diabetic male patient was seen today as a podiatry consultation for nonhealing left third toe ulcer with suspected osteomyelitis. History of diabetes mellitus and per patient his last A1c was 7.6 percent. He reports compliance with his medication. He denies chills, fever, nausea, vomiting, diarrhea or other illness. Patient is undergoing treatment with advanced wound care as well as hyperbaric oxygen treatment to salvage his left foot. He has been walking in a regular close shoe. His swelling has also decreased. He is with his today. He was also seen by infectious disease specialist, Dr. Berry, today as well. He is interested in proceeding with hyperbaric oxygen therapy if possible. He also brought his offloading cam walker boot for adjustment today. Progress of Wound: Today represents the 30th session of hyperbaric oxygen therapy, of a planned 30 such sessions. Subjective Subjective Patient is here for reevaluation of his wounds on his third toe Dr. Amador has biopsied bone found more osteomyelitis in the third toe and he will restart HBO treatments for this he also has a plantar wound and a lateral wound of the third toe more superficial. 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 Objective Data Objective Data Superficial openings to the plantar and lateral third toe still erythematous and swollen will start him on Aquacel extra daily dressings and reapply for HBO for the third toe osteomyelitis Vital Signs: Vital Signs Temp Pulse Resp BP 97 F L 77 18 168/92 H 06/10/21 09:59 06/10/21 09:59 06/10/21 09:59 06/10/21 09:59 Oxygen Delivery Method Room Air Weight: 235 lb Body Mass Index (BMI) 30.6 Lab / Micro Data Labs: Laboratory Results - last 24 hr 06/09/21 13:03: POC Glucose 146 H Radiography Diagnostic Testing: Biopsy of bone shows osteomyelitis third toe Physical Exam Const oriented x3 General Appearance: cooperative Exam Limitations: no limitations HEENT normocephalic Head and Scalp: normal to inspection Face and Sinus: normal facial exam Nose: external nose normal General Ear: hearing grossly impaired External Ear: external ears normal Mouth: oral and palatal mucosa normal Eyes PERRL General Eye: normal appearance of both eyes Neck full ROM General: normal visual inspection Resp normal respiratory effort Effort and Inspection: able to speak in complete sentences Auscultation: clear to auscultation bilaterally Cardio regular rate and regular rhythm Palpation: normal PMI Rate: regular rate Rhythm: regular rhythm GI Auscultation: normoactive bowel sounds Palpation: soft and no hepatosplenomegaly external exam normal Back/Spine Cervical Spine: cervical ROM normal Thoracic Spine / Upper Back: normal to inspection Lumbar Spine / Lower Back: normal to inspection Extremity normal to inspection General Extremity: normal exam except as noted Skin no rashes or lesions noted Neuro oriented x3 Psych Appearance: grossly normal Speech: normal speech Thought Content: normal thought content Judgement: judgement good Debridement Note Debridement Note Post-Debridement Measurements and Additional Note: Post-Debridement Measurements/Treatment - Nurse 1 - General Ulcer Assessment Start: 05/20/21 08:59 Freq: Status: Active Protocol: .LOWEX Activity Type Activity Date Activity User E-Sign Co-Sign Detail Recorded Client Recorded Date Recorded By Document 05/20/21 09:00 PL [id number] 05/20/21 09:09 PL Document 05/27/21 09:32 DL Desktop 05/27/21 09:38 DL Document 06/03/21 14:12 ML [id number] 06/03/21 14:25 ML Document 06/10/21 09:59 MT [id number] 06/10/21 10:04 MT 05/20/21 05/27/21 06/03/21 09:00 09:32 14:12 - Today's Visit Information Type of service Follow-up Visit Follow-up Visit Follow-up Visit (Physician/TELESCOPE MAINTENANCE (Physician/TELESCOPE MAINTENANCE (Physician/TELESCOPE MAINTENANCE ) ) ) Arrival Mode Ambulatory Ambulatory Ambulatory Transfer Assistance None None None Accompanied by Patient Identification Verified (Name & Yes Yes Yes ) Patient Requires Transmission-Based No No No Precautions Safety Precautions NA NA Finger Stick Blood Sugar(mg/dl) (if 135 133 indicated): Blood Sugar Stated by Stated by Patient Patient Height and Weight Body Mass Index (BMI) 30.6 30.6 30.6 BMI Classification Obese Obese Obese Vital Signs Temperature (97.8 F-99.1 F) 98.6 F 98 F 97.7 F L Temperature Source Temporal Temporal Temporal Pulse Rate (60-100) 71 77 76 Pulse Location Monitor Monitor Respiratory Rate (12-18) 18 20 H 18 Respiratory rate source Observation Observation Oxygen Delivery Method Blood Pressure (90/60-120/80) 166/78 H 105/60 166/80 H Blood Pressure Mean (mm Hg) 107 75 108 Source Monitor Monitor Position Sitting Blood Pressure Location Left Arm History Since Last Visit- (Skip if this is Patient's initial visit) Have you changed medications since your No No No last visit? Any new allergies or adverse reactions No No No Had a fall/change in ADL's that may No No No increase risk of falls Signs or symptoms of abuse and/or No No No neglect since last visit Have you been in the hospital since your Yes No No last visit? Has dressing in place as prescribed Yes Yes Yes Has compression in place as prescribed N/A N/A N/A Has offloadiing in place as prescribed N/A Yes N/A Experienced any changes in pain level or No No No management Left Footwear Removable Cast Walker/Walking Boot Right Footwear Regular Shoe Pain Scale: 0-10 Numeric Is Patient Pain Free? Yes Yes Yes 06/10/21 09:59 WC - Today's Visit Information Type of service Follow-up Visit (Physician/TELESCOPE MAINTENANCE ) Arrival Mode Ambulatory Transfer Assistance Accompanied by Patient Identification Verified (Name & Yes ) Patient Requires Transmission-Based Precautions Safety Precautions Finger Stick Blood Sugar(mg/dl) (if 134 indicated): Blood Sugar Stated by Patient Height and Weight Body Mass Index (BMI) 30.6 BMI Classification Obese Vital Signs Temperature (97.8 F-99.1 F) 97 F L Temperature Source Temporal Pulse Rate (60-100) 77 Pulse Location Monitor Respiratory Rate (12-18) 18 Respiratory rate source Observation Oxygen Delivery Method Room Air Blood Pressure (90/60-120/80) 168/92 H Blood Pressure Mean (mm Hg) 117 Source Monitor Position Sitting Blood Pressure Location Left Arm History Since Last Visit- (Skip if this is Patient's initial visit) Have you changed medications since your last visit? Any new allergies or adverse reactions Had a fall/change in ADL's that may increase risk of falls Signs or symptoms of abuse and/or neglect since last visit Have you been in the hospital since your last visit? Has dressing in place as prescribed Yes Has compression in place as prescribed Yes Has offloadiing in place as prescribed Yes Experienced any changes in pain level or No management Left Footwear Other Footwear (Comment) Right Footwear Regular Shoe Pain Scale: 0-10 Numeric Is Patient Pain Free? WC - Nurse 1 - General Ulcer Measurement Start: 05/20/21 08:59 Freq: Status: Active Protocol: Activity Type Activity Date Activity User E-Sign Co-Sign Detail Recorded Client Recorded Date Recorded By Document 05/20/21 09:00 PL [id number] 05/20/21 09:09 PL Document 05/27/21 09:32 DL Desktop 05/27/21 09:38 DL Document 06/03/21 14:12 ML [id number] 06/03/21 14:25 ML Document 06/10/21 09:59 MT [id number] 06/10/21 10:04 MT 05/20/21 05/27/21 06/03/21 09:00 09:32 14:12 Wound Center Nurse 1 #4- L PLANTAR 3RD TOE -Combined with other wound No -Current Size (cm) - Length 0.5 0.4 1 -Current Size (cm) - Width 0.6 0.3 0.8 -Current Size (cm) - Depth 0.1 0.1 0.4 -Total Square Cm 0.30 0.12 0.8 -Photo Taken No No -Tunneling No -Undermining/Tunneling No -Circular Undermining No -Exudate Amt Medium Medium Medium -Exudate Type Serosanguineous Serosanguineous -Wound Margin Thickened Distinct, Outline Attached -Granulation Amt Large (67-100%) Medium (34-66%) -Granulation Quality Morrow Hyper- granulation, Morrow -Slough/Fibrin Yes Yes -Necrosis Amt Small (1-33%) Small (1-33%) Medium (34-66%) -Necrotic Tissue Type Adherent Slough Adherent Slough -Structure Exposed N/A -Texture (Angie-wound Skin Appearance) Callus, Assessed Localized Edema ,Scarring -Moisture (Angie-wound Skin Appearance) Dry/Scaly Maceration Maceration -Color (Angie-wound Skin Appearance) Erythema Erythema,Rubor Assessed -Temperature (Angie-wound Skin No Abnormality No Abnormality Appearance) (Pt Warm) (Pt Warm) -Tenderness on Palpation (Angie-wound No No Skin Appearance) -Ulcer Cleansing Rinsed/ Wound Cleanser Wound Cleanser Irrigated with Saline -Foul Odor after Cleansing No No No -Anesthetic Used 5% Lidocaine 5% Lidocaine 4% Lidocaine Gel Gel Solution Lower Limb Edema Present Left Calf (cm) Left Ankle (cm) 06/10/21 09:59 Wound Center Nurse 1 #4- L PLANTAR 3RD TOE -Combined with other wound -Current Size (cm) - Length 0.8 -Current Size (cm) - Width 0.3 -Current Size (cm) - Depth 0.2 -Total Square Cm 0.24 -Photo Taken -Tunneling No -Undermining/Tunneling No -Circular Undermining No -Exudate Amt Medium -Exudate Type Serosanguineous -Wound Margin Thickened & Rolled Under -Granulation Amt Medium (34-66%) -Granulation Quality -Slough/Fibrin Yes -Necrosis Amt Medium (34-66%) -Necrotic Tissue Type Adherent Slough -Structure Exposed -Texture (Angie-wound Skin Appearance) Assessed -Moisture (Angie-wound Skin Appearance) Assessed -Color (Angie-wound Skin Appearance) Assessed -Temperature (Angie-wound Skin No Abnormality Appearance) (Pt Warm) -Tenderness on Palpation (Angie-wound No Skin Appearance) -Ulcer Cleansing Rinsed/ Irrigated with Saline -Foul Odor after Cleansing No -Anesthetic Used 4% Lidocaine Solution Lower Limb Edema Present Yes Left Calf (cm) 39.5 Left Ankle (cm) 27.5 WC - Nurse 2 - General Ulcer CM Notes Start: 05/20/21 08:59 Freq: Status: Active Protocol: Activity Type Activity Date Activity User E-Sign Co-Sign Detail Recorded Client Recorded Date Recorded By Document 05/20/21 09:23 MW [id number] 05/20/21 09:27 MW Document 05/27/21 10:56 PL Laptop 05/27/21 11:01 PL Document 06/03/21 16:03 [id number] 06/03/21 16:16 JF Document 06/10/21 10:23 MW [id number] 06/10/21 10:25 MW 05/20/21 05/27/21 06/03/21 09:23 10:56 16:03 Wound Center Nurse 2 #4- L PLANTAR 3RD TOE -Time 09:23 10:12 16:04 -Correct Patient Yes Yes Yes -Correct Side, Site, Position Yes Yes Yes -Correct Procedure Yes Yes Yes -Procedure Performed Yes Yes Yes -Type of Procedure Debridement Debridement Debridement -Clinical Debridement Subcutaneous Subcutaneous Bone -Tissue Removed Subcutaneous Subcutaneous Slough -Post Debridement (cm) - Length 0.5 0.4 2.4 -Post Debridement (cm) - Width 0.6 0.3 0.6 -Post Debridement (cm) - Depth 0.1 1.6 2.8 -Total Square (Post) (cm) 0.30 0.12 1.44 -Area of Debridement (cm) - Length 0.5 0.4 2.4 -Area of Debridement (cm) - Width 0.6 0.3 0.6 -Total Square (Area) (cm) 0.30 0.12 1.44 -Tunneling No No No -Undermining/Tunneling No No No -Circular Undermining No No No -Wound/Ulcer Outcome Not Healed Not Healed Not Healed -Ulcer Cleansing Rinsed/ Rinsed/ Rinsed/ Irrigated with Irrigated with Irrigated with Saline Saline Saline -Foul Odor after Cleansing No No No -Bioengineered Tissue No No No -Bleeding Controlled with Pressure Pressure -Offloading No Yes -Type of Offloading Camwalker -Treatment Response Procedure Procedure Tolerated Well Tolerated Well -Debridement - Subq, 1st 20sq cm Yes Yes No -Debridement - Bone, 1st 20sq cm Yes Pain Scale: 0-10 Numeric Is Patient Pain Free? Yes Yes Yes 06/10/21 10:23 Wound Center Nurse 2 #4- L PLANTAR 3RD TOE -Time 10:24 -Correct Patient Yes -Correct Side, Site, Position Yes -Correct Procedure Yes -Procedure Performed Yes -Type of Procedure Debridement -Clinical Debridement Subcutaneous -Tissue Removed Subcutaneous -Post Debridement (cm) - Length 1.0 -Post Debridement (cm) - Width 1.8 -Post Debridement (cm) - Depth 0.2 -Total Square (Post) (cm) 1.80 -Area of Debridement (cm) - Length 1.0 -Area of Debridement (cm) - Width 1.8 -Total Square (Area) (cm) 1.80 -Tunneling No -Undermining/Tunneling No -Circular Undermining No -Wound/Ulcer Outcome Not Healed -Ulcer Cleansing Rinsed/ Irrigated with Saline -Foul Odor after Cleansing No -Bioengineered Tissue No -Bleeding Controlled with Pressure -Offloading No -Type of Offloading -Treatment Response Procedure Tolerated Well -Debridement - Subq, 1st 20sq cm Yes -Debridement - Bone, 1st 20sq cm Pain Scale: 0-10 Numeric Is Patient Pain Free? WC - Nurse 3 - General Ulcer D/C NN Start: 05/20/21 08:59 Freq: Status: Active Protocol: Activity Type Activity Date Activity User E-Sign Co-Sign Detail Recorded Client Recorded Date Recorded By Document 05/20/21 13:19 PL [id number] 05/20/21 13:20 PL Document 05/27/21 11:01 PL Laptop 05/27/21 11:01 PL Document 06/03/21 16:33 ML [id number] 06/03/21 16:34 ML Document 06/10/21 10:31 AK [id number] 06/10/21 10:42 AK 05/20/21 05/27/21 06/03/21 13:19 11:01 16:33 Wound Care Nurse 3 #4- L PLANTAR 3RD TOE -Ulcer Cleansing Rinsed/ Rinsed/ Rinsed/ Irrigated with Irrigated with Irrigated with Saline Saline Saline -Foul Odor after Cleansing No No No -Primary Dressing Applied Promogran Promogran Anne Marie Matter -Other Dressing BETADINE,WET TO DRY -Primary Dressing Covered/Secured with Dry Gauze & Dry Gauze & Dry Gauze & Roll Gauze, Roll Gauze, Roll Gauze, Secured with Secured with Secured with Tape Tape Tape -Aquacel Extra -Promogran 1 -Promogran Anne Marie Matter 1 Left -Compression Wrap Unna Boot ($) ( single) -Size of Tubigrip Used Size E Pain Scale: 0-10 Numeric Is Patient Pain Free? Yes Yes WC - Visit Discharge Discharge Condition Stable Ambulatory Status Ambulatory Transportation Medication Reconcilliation completed & No provided to patient/care provider Clinical Summary of Care Provided Yes 06/10/21 10:31 Wound Care Nurse 3 #4- L PLANTAR 3RD TOE -Ulcer Cleansing Rinsed/ Irrigated with Saline -Foul Odor after Cleansing No -Primary Dressing Applied Aquacel Extra -Other Dressing -Primary Dressing Covered/Secured with -Aquacel Extra 1 -Promogran -Promogran Anne Marie Matter Left -Compression Wrap -Size of Tubigrip Used Pain Scale: 0-10 Numeric Is Patient Pain Free? WC - Visit Discharge Discharge Condition Stable Ambulatory Status Ambulatory Transportation [facility] Medication Reconcilliation completed & provided to patient/care provider Clinical Summary of Care Provided Yes Wound debrided: Left third toe cluster Type of Debridement: Excisional debridement Anesthesia Used: 5% Lidocaine Gel Depth: Down to and including healthy tissue and in the subcutaneous layer Percentage of wound debrided: 100 Instrument Used: 7mm curette Tissue Removed: Fibrin and devitalized tissue Severity: Fat Layer Exposed Amount of bleeding with debridement: Mild Bleeding Controlled with: Compression and gauze Patient tolerated procedure: Patient tolerated procedure well Assessment/Plan Assessment/Plan (1) Non-pressure chronic ulcer of other part of left foot with necrosis of bone: CODE(S): L97.524 - Non-pressure chronic ulcer of other part of left foot with necrosis of bone PLAN: Wash foot with antibacterial soap and apply Aquacel extra to wound bases cover with Adaptic wrapped in gauze and tape daily Follow-up in 1 week (2) Deformity of toe of left foot: CODE(S): M20.62 - Acquired deformities of toe(s), unspecified, left foot (3) Osteomyelitis, unspecified: CODE(S): M86.9 - Osteomyelitis, unspecified QUALIFIERS: Osteomyelitis type: chronic multifocal Osteomyelitis location: foot Laterality: left Qualified Code(s): M86.372 - Chronic multifocal osteomyelitis, left ankle and foot PLAN: We will reapply for HBO treatments #30 Start metronidazole 250s 1 p.o. 3 times daily for 14 days #42 (4) Non-healing surgical wound: CODE(S): T81.89XA - Other complications of procedures, not elsewhere classified, initial encounter QUALIFIERS: Encounter type: subsequent encounter Qualified Code(s): T81.89XD - Other complications of procedures, not elsewhere classified, subsequent encounter
--- NOTE | 2021-06-10 12:08 | PCM.CONHBO ---
Assessment & Plan Assessment/Plan (1) Non-pressure chronic ulcer of other part of left foot with necrosis of bone: (2) Deformity of toe of left foot: (3) Osteomyelitis, unspecified: QUALIFIERS: Osteomyelitis type: chronic multifocal Osteomyelitis location: foot Laterality: left Qualified Code(s): M86.372 - Chronic multifocal osteomyelitis, left ankle and foot PLAN: CLAY 2.0 no breaks for approximately 2 hours/day once a day for 30 days (4) Non-healing surgical wound: QUALIFIERS: Encounter type: subsequent encounter Qualified Code(s): T81.89XD - Other complications of procedures, not elsewhere classified, subsequent encounter History of Present Illness Date of Service: 06/10/21 Chief Complaint: Non-healing left third toe plantar wound with osteomyelitis History of Wound: This 75-year-old diabetic male patient was seen today as a podiatry consultation for nonhealing left third toe ulcer with suspected osteomyelitis. History of diabetes mellitus and per patient his last A1c was 7.6 percent. He reports compliance with his medication. He denies chills, fever, nausea, vomiting, diarrhea or other illness. Patient is undergoing treatment with advanced wound care as well as hyperbaric oxygen treatment to salvage his left foot. He has been walking in a regular close shoe. His swelling has also decreased. He is with his today. He was also seen by infectious disease specialist, Dr. Berry, today as well. He is interested in proceeding with hyperbaric oxygen therapy if possible. He also brought his offloading cam walker boot for adjustment today. Progress of Wound: Patient developed osteomyelitis of the third toe and by bone biopsy to Dr. Amador on and is now reapplying for HBO treatments for the third toe osteomyelitis. The great toe is healed he is finished 30 treatments for the great toe. Now he has redness and swelling of the left third toe. [facility] Medical History Acute osteomyelitis involving ankle and foot Arthritis Body mass index 31.0-31.9, adult Cellulitis Chronic osteomyelitis involving ankle and foot Diabetes mellitus Ectopic atrial tachycardia Essential hypertension Hyperlipidemia Hypertension Long-term use of high-risk medication Methicillin susceptible Staphylococcus aureus infection Nonhealing nonsurgical wound with fat layer exposed RAJESH (obstructive sleep apnea) Paroxysmal ventricular tachycardia Premature atrial contractions Premature ventricular contraction Psoriasis Secondary pulmonary arterial hypertension Shortness of breath Supraventricular tachycardia Home Medications finasteride 5 mg PO DAILY 02/03/16 [History Last Taken Unknown] metformin 1,000 mg PO BIDCM 02/03/16 [History Last Taken Unknown] tamsulosin 0.4 mg PO QHS 02/03/16 [History Last Taken Unknown] bimatoprost 1 drp EACH EYE DAILY 06/30/18 [History Last Taken Unknown] fluticasone propionate 2 spray NASAL DAILY PRN 06/30/18 [History Last Taken Unknown] methotrexate sodium 7.5 mg PO Q7D 06/30/18 [History Last Taken Unknown] pyridoxine (vitamin B6) 100 mg PO QHS 06/30/18 [History Last Taken Unknown] multivitamin with folic acid 1 tab PO DAILY 10/20/18 [History Last Taken Unknown] oxybutynin chloride 5 mg PO QHS 10/20/18 [History Last Taken Unknown] timolol maleate 1 drp EACH EYE BID 10/20/18 [History Last Taken 09/26/20 07:30] fexofenadine 180 mg tablet 180 mg PO DAILY 06/01/19 [History Last Taken Unknown] folic acid 1 mg tablet 4 mg PO DAILY 06/01/19 [History Last Taken Unknown] glucosamine HCl 1,500 mg tablet 1,500 mg PO BID tab 02/20/20 [History Last Taken Unknown] vit C 250 mg-vit E 90 mg-zinc 40 mg-copper 1 [id number]-xlnavp capsule 1 cap PO DAILY 02/20/20 [History Last Taken Unknown] glipizide 10 mg tablet 10 mg PO DAILY tab 05/30/20 [History Last Taken Unknown] infliximab-dyyb 100 mg intravenous solution mg IV [id number] ea 05/30/20 [History Last Taken 08/15/20] naproxen sodium 220 mg PO PRN PRN 09/24/20 [History Last Taken Unknown] cyanocobalamin (vitamin B-12) 100 mcg tablet 500 mcg PO DAILY tab 12/01/20 [History Last Taken Unknown] ranitidine HCl 150 mg tablet mg PO 12/01/20 [History Last Taken Unknown] hydrochlorothiazide 25 mg tablet 25 mg PO DAILY #90 tab 03/30/21 [Rx Last Taken Unknown] lisinopril 40 mg tablet 40 mg PO DAILY #90 tab 03/30/21 [Rx Last Taken Unknown] metoprolol succinate 100 mg tablet,extended release 24 hr 100 mg PO BID #180 tab 03/30/21 [Rx Last Taken Unknown] potassium chloride 20 mEq tablet,extended release(part/cryst) 20 meq PO DAILY #90 tab 03/30/21 [Rx Last Taken Unknown] pravastatin 40 mg tablet 40 mg PO QHS #90 tab 03/30/21 [Rx Last Taken Unknown] doxycycline hyclate 100 mg PO BID 05/05/21 [History Last Taken 05/05/21] Allergy/AdvReac Type Severity Reaction Status Date / Time cephalexin [From Keflex] Allergy Severe rash Verified 05/19/21 12:25 sulfamethoxazole Allergy Severe Rash Verified 05/19/21 12:25 [From Bactrim] trimethoprim [From Bactrim] Allergy Severe Rash Verified 05/19/21 12:25 levofloxacin [From Levaquin] AdvReac Other Verified 05/20/21 13:34 Penicillins AdvReac Unknown Verified 05/19/21 12:25 Family History Father Cancer Prostate Mother Depression Surgical History excision of skin cancer History of foot surgery History of hammer toe correction (09/26/20) History of hernia repair History of partial amputation of toe History of tonsillectomy and adenoidectomy Social History Smoking Status: Former smoker pack-years: 30 alcohol intake: current alcohol intake frequency: holidays/special occasions only substance use type: does not use caffeine: Yes Type: coffee Number of servings: 3 what type of physical activity do you participate in: running and weight training frequency: 1-2 times per week ROS Constitutional Constitutional: Reports systems reviewed and no addt'l complaints, except as documented Eyes Eyes: Reports systems reviewed and no addt'l complaints, except as documented ENT HEENT: Reports systems reviewed and no addt'l complaints, except as documented Cardiovascular Cardiovascular: Reports systems reviewed and no addt'l complaints, except as documented Respiratory/Chest Respiratory/Chest: Reports systems reviewed and no addt'l complaints, except as documented Gastrointestinal Gastrointestinal: Reports systems reviewed and no addt'l complaints, except as documented Genitourinary Genitourinary: Reports systems reviewed and no addt'l complaints, except as documented Musculoskeletal Musculoskeletal: Reports systems reviewed and no addt'l complaints, except as documented Integumentary Integumentary: Reports systems reviewed and no addt'l complaints, except as documented Neurologic Neurologic: Reports systems reviewed and no addt'l complaints, except as documented Psychiatric Psychiatric: Reports systems reviewed and no addt'l complaints, except as documented Endocrine Endocrinology: Reports systems reviewed and no addt'l complaints, except as documented Hematologic/Lymphatic Hematologic/Lymphatic: Reports systems reviewed and no addt'l complaints, except as documented Allergic/Immunologic Allergic/Immunologic: Reports systems reviewed and no addt'l complaints, except as documented Physical Exam Physical Exam Const oriented x3 General Appearance: cooperative Exam Limitations: no limitations HEENT normocephalic Head and Scalp: normal to inspection Face and Sinus: normal facial exam Nose: external nose normal General Ear: hearing grossly impaired External Ear: external ears normal Mouth: oral and palatal mucosa normal Eyes PERRL General Eye: normal appearance of both eyes Neck full ROM General: normal visual inspection Resp normal respiratory effort Effort and Inspection: able to speak in complete sentences Auscultation: clear to auscultation bilaterally Cardio regular rate and regular rhythm Palpation: normal PMI Rate: regular rate Rhythm: regular rhythm GI Auscultation: normoactive bowel sounds Palpation: soft and no hepatosplenomegaly external exam normal Back/Spine Cervical Spine: cervical ROM normal Thoracic Spine / Upper Back: normal to inspection Lumbar Spine / Lower Back: normal to inspection Extremity normal to inspection General Extremity: normal exam except as noted Skin no rashes or lesions noted Neuro oriented x3 Psych Appearance: grossly normal Speech: normal speech Thought Content: normal thought content Judgement: judgement good Nursing Assessment and Debridement Post-Debridement Measurements and Additional Note: Post-Debridement Measurements/Treatment - Nurse 1 - General Ulcer Assessment Start: 05/20/21 08:59 Freq: Status: Active Protocol: REMA Activity Type Activity Date Activity User E-Sign Co-Sign Detail Recorded Client Recorded Date Recorded By Document 06/10/21 09:59 ND [id number] 06/10/21 10:04 ND 06/10/21 09:59 - Today's Visit Information Type of service Follow-up Visit (Physician/[employer] ) Arrival Mode Ambulatory Accompanied by Patient Identification Verified (Name & Yes ) Finger Stick Blood Sugar(mg/dl) (if 134 indicated): Blood Sugar Stated by Patient Height and Weight Body Mass Index (BMI) 30.6 BMI Classification Obese Vital Signs Temperature (97.8 F-99.1 F) 97 F L Temperature Source Temporal Pulse Rate (60-100) 77 Pulse Location Monitor Respiratory Rate (12-18) 18 Respiratory rate source Observation Oxygen Delivery Method Room Air Blood Pressure (90/60-120/80) 168/92 H Blood Pressure Mean (mm Hg) 117 Source Monitor Position Sitting Blood Pressure Location Left Arm History Since Last Visit- (Skip if this is Patient's initial visit) Has dressing in place as prescribed Yes Has compression in place as prescribed Yes Has offloadiing in place as prescribed Yes Experienced any changes in pain level or No management Left Footwear Other Footwear (Comment) Right Footwear Regular Shoe WC - Nurse 1 - General Ulcer Measurement Start: 05/20/21 08:59 Freq: Status: Active Protocol: Activity Type Activity Date Activity User E-Sign Co-Sign Detail Recorded Client Recorded Date Recorded By Document 06/10/21 09:59 ND [id number] 06/10/21 10:04 ND 06/10/21 09:59 Wound Center Nurse 1 #4- L PLANTAR 3RD TOE -Current Size (cm) - Length 0.8 -Current Size (cm) - Width 0.3 -Current Size (cm) - Depth 0.2 -Total Square Cm 0.24 -Tunneling No -Undermining/Tunneling No -Circular Undermining No -Exudate Amt Medium -Exudate Type Serosanguineous -Wound Margin Thickened & Rolled Under -Granulation Amt Medium (34-66%) -Slough/Fibrin Yes -Necrosis Amt Medium (34-66%) -Necrotic Tissue Type Adherent Slough -Texture (Angie-wound Skin Appearance) Assessed -Moisture (Angie-wound Skin Appearance) Assessed -Color (Angie-wound Skin Appearance) Assessed -Temperature (Angie-wound Skin No Abnormality Appearance) (Pt Warm) -Tenderness on Palpation (Angie-wound No Skin Appearance) -Ulcer Cleansing Rinsed/ Irrigated with Saline -Foul Odor after Cleansing No -Anesthetic Used 4% Lidocaine Solution Lower Limb Edema Present Yes Left Calf (cm) 39.5 Left Ankle (cm) 27.5 WC - Nurse 2 - General Ulcer CM Notes Start: 05/20/21 08:59 Freq: Status: Active Protocol: Activity Type Activity Date Activity User E-Sign Co-Sign Detail Recorded Client Recorded Date Recorded By Document 06/10/21 10:23 MW [id number] 06/10/21 10:25 MW 06/10/21 10:23 Wound Center Nurse 2 #4- L PLANTAR 3RD TOE -Time 10:24 -Correct Patient Yes -Correct Side, Site, Position Yes -Correct Procedure Yes -Procedure Performed Yes -Type of Procedure Debridement -Clinical Debridement Subcutaneous -Tissue Removed Subcutaneous -Post Debridement (cm) - Length 1.0 -Post Debridement (cm) - Width 1.8 -Post Debridement (cm) - Depth 0.2 -Total Square (Post) (cm) 1.80 -Area of Debridement (cm) - Length 1.0 -Area of Debridement (cm) - Width 1.8 -Total Square (Area) (cm) 1.80 -Tunneling No -Undermining/Tunneling No -Circular Undermining No -Wound/Ulcer Outcome Not Healed -Ulcer Cleansing Rinsed/ Irrigated with Saline -Foul Odor after Cleansing No -Bioengineered Tissue No -Bleeding Controlled with Pressure -Offloading No -Treatment Response Procedure Tolerated Well -Debridement - Subq, 1st 20sq cm Yes WC - Nurse 3 - General Ulcer D/C NN Start: 05/20/21 08:59 Freq: Status: Active Protocol: Activity Type Activity Date Activity User E-Sign Co-Sign Detail Recorded Client Recorded Date Recorded By Document 06/10/21 10:31 AK [id number] 06/10/21 10:42 AK 06/10/21 10:31 Wound Care Nurse 3 -Ulcer Cleansing Rinsed/ Irrigated with Saline -Foul Odor after Cleansing No -Primary Dressing Applied Aquacel Extra -Aquacel Extra 1 WC - Visit Discharge Discharge Condition Stable Ambulatory Status Ambulatory Transportation Private Auto Clinical Summary of Care Provided Yes Lab / Micro Data Labs: Laboratory Results - last 24 hr 06/09/21 13:03: POC Glucose 146 H
== END 2021-06-13 23:59 ==
LOC: WC 09:15
PROVIDERS: PCP Family Medicine; Referring Provider Podiatrist Foot & Ankle Surgery; Visit Provider Nurse Practitioner
DX: E11.621 Type 2 diabetes mellitus with foot ulcer (principal); L97.522 Non-pressure chronic ulcer of other part of left foot with fat layer exposed; M86.172 Other acute osteomyelitis, left ankle and foot; E66.9 Obesity, unspecified; Z68.30 Body mass index [BMI] 30.0-30.9, adult
CPT/HCPCS: 11042; 11044; 82962; 88304; 88307; 88311; 99183; G0277

== ENCOUNTER → 2021-06-17 12:25 | Outpatient (CLI) | payer MEDICARE, OTHER, SELFPAY ==
[2021-06-17 09:19] VITALS: BMI 30.6
== END ==
PROVIDERS: PCP Family Medicine; Referring Provider Nurse Practitioner; Visit Provider Nurse Practitioner
DX: E11.621 Type 2 diabetes mellitus with foot ulcer (principal); L97.526 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 involvement without evidence of necrosis; L97.522 Non-pressure chronic ulcer of other part of left foot with fat layer exposed; M86.9 Osteomyelitis, unspecified
CPT/HCPCS: 11042; 82962; 87070; 87075; 87077; 87186; 87205; 99183; G0277

== ENCOUNTER → 2021-06-29 14:02 | Outpatient (CLI) | payer MEDICARE, OTHER, SELFPAY ==
[2021-06-24 09:22] VITALS: BMI 30.6
[2021-06-29 15:02] LABS: Hematocrit 43.8 % (40-54); Hemoglobin 14.3 g/dL (13.0-16.5); Mean Corp Hgb Conc 32.6 g/dL (32-36); Mean Corpuscular Volume 94.8 fL (80-94); Mean Platelet Vol. 10.9 fl (6.2-12.0); Platelet Count 249 K/mm3 (150-450); RBC Distribution Width CV 13.7 % (11.6-14.6); RBC Distribution Width SD 46.9 fl (35.1-43.9); Red Blood Count 4.62 M/mm3 (4.6-6.2); White Blood Count 7.3 K/mm3 (4.4-11.0)
[2021-06-29 15:14] LABS: Erythrocyte Sedimentation Rate 15 mm/hr (0-20)
[2021-06-29 15:30] LABS: Anion Gap 5 (5-15); BUN 29 mg/dL (7-18); BUN/Creat Ratio 24.2 RATIO (10-20); Calcium,Total 9.5 mg/dL (8.5-10.1); Chloride 108 mmol/L (98-107); EST Glomerular Filtration Rate 62 mL/min (>60); Est Glom Filt Rate - Afr Amer 75 mL/min (>60); Glucose 109 mg/dL (74-106); Potassium 4.1 mmol/L (3.5-5.1); Sodium Level 140 mmol/L (136-145)
== END ==
PROVIDERS: PCP Family Medicine; Visit Provider Internal Medicine Infectious Disease
DX: E11.69 Type 2 diabetes mellitus with other specified complication (principal); M86.9 Osteomyelitis, unspecified; E11.621 Type 2 diabetes mellitus with foot ulcer; L97.522 Non-pressure chronic ulcer of other part of left foot with fat layer exposed
CPT/HCPCS: 36415; 80048; 82962; 85027; 85652; 99183; G0277

== ENCOUNTER → 2021-06-30 10:00 | Outpatient (CLI) | payer MEDICARE, OTHER, SELFPAY ==
[2021-04-29 10:56] VITALS: BMI 31.8
[2021-06-24 09:22] VITALS: BMI 30.6
[2021-06-30 10:07] VITALS: BP 135/71; PULSE 66; RESP 16; TEMP 35.6; O2SAT 98; BMI 30.5
[2021-06-30] MEDS: 0.9% NaCl Peripheral Flush Adult/Peds IV (10:27)
[2021-06-30] MEDS: 0.9% NaCl IVPB Med Flush (250 mL) 15 ML IV (10:27)
[2021-06-30] MEDS: DiphenhydrAMINE 50 MG/ML Syringe 12.5 MG IV (10:27)
== END ==
PROVIDERS: PCP Family Medicine; Referring Provider Family Medicine; Visit Provider Family Medicine
DX: M50.90 Cervical disc disorder, unspecified, unspecified cervical region (principal); L40.52 Psoriatic arthritis mutilans; L40.9 Psoriasis, unspecified; Z79.899 Other long term (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
CPT/HCPCS: 96375; 96413; 96415; J7050; A4216; Q5103

== ENCOUNTER 2021-07-08 09:15 | Outpatient (RCR) | payer MEDICARE, OTHER, SELFPAY ==
[2021-06-14 00:28] VITALS: BP 168/92; PULSE 77; RESP 18; TEMP 36.1
[2021-06-15 10:55] LABS: Bedside Glucose 170 mg/dL (70-110)
[2021-06-15 10:58] VITALS: BP 134/75; BP 156/91; PULSE 66; PULSE 71; RESP 16; RESP 17; TEMP 36.3; TEMP 36.7
[2021-06-15 13:11] LABS: Bedside Glucose 129 mg/dL (70-110)
--- NOTE | 2021-06-15 13:17 | PCM.HBO.PN ---
History of Present Illness Date of Service: 06/15/21 Chief Complaint: Non-healing left third toe plantar wound with osteomyelitis History of Wound: This 75-year-old diabetic male patient was seen today as a podiatry consultation for nonhealing left third toe ulcer with suspected osteomyelitis. History of diabetes mellitus and per patient his last A1c was 7.6 percent. He reports compliance with his medication. He denies chills, fever, nausea, vomiting, diarrhea or other illness. Patient is undergoing treatment with advanced wound care as well as hyperbaric oxygen treatment to salvage his left foot. He has been walking in a regular close shoe. His swelling has also decreased. He is with his today. He was also seen by infectious disease specialist, Dr. Berry, today as well. He is interested in proceeding with hyperbaric oxygen therapy if possible. He also brought his offloading cam walker boot for adjustment today. Subjective Subjective Today's hyperbaric oxygen therapy session represents the 31st session of a planned 60 such sessions. Hyperbaric oxygen therapy was administered as per the facility's protocol. Hyperbaric oxygen therapy was administered at 2 tulio for 90 minutes with no air breaks. Patient tolerated hyperbaric oxygen therapy well, without complaints or complications. Upon emergence from the hyperbaric chamber, the patient's vital signs remained stable. Pre- and post- treatment blood sugars are recorded elsewhere. Objective Data Objective Data Vital Signs: Vital Signs Temp Pulse Resp BP 98.0 F 66 17 134/75 H 06/15/21 10:58 06/15/21 10:58 06/15/21 10:58 06/15/21 10:58 Weight: 235 lb Body Mass Index (BMI) 30.6 Lab / Micro Data Labs: Laboratory Results - last 24 hr 06/15/21 10:50: POC Glucose 170 H 06/15/21 13:02: POC Glucose 129 H Exam Physical Exam Const oriented x3 General Appearance: cooperative HEENT normocephalic Head and Scalp: normal to inspection General Ear: hearing grossly impaired External Ear: external ears normal Tympanic Membrane: TM's normal bilaterally Neck full ROM General: normal visual inspection Resp normal respiratory effort Effort and Inspection: able to speak in complete sentences Auscultation: clear to auscultation bilaterally Cardio Negative for regular rate or regular rhythm Neuro oriented x3 Psych Appearance: grossly normal Speech: normal speech Thought Content: normal thought content Assessment/Plan Assessment/Plan (1) Non-pressure chronic ulcer of other part of left foot with necrosis of bone: CODE(S): L97.524 - Non-pressure chronic ulcer of other part of left foot with necrosis of bone (2) Cellulitis of left lower limb: CODE(S): L03.116 - Cellulitis of left lower limb (3) Ulcer of left foot with bone involvement without evidence of necrosis: CODE(S): L97.526 - 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 involvement without evidence of necrosis (4) Osteomyelitis, unspecified: CODE(S): M86.9 - Osteomyelitis, unspecified QUALIFIERS: Laterality: left Osteomyelitis location: foot Osteomyelitis type: chronic multifocal Qualified Code(s): M86.372 - Chronic multifocal osteomyelitis, left ankle and foot (5) Diabetic foot ulcer associated with type 2 diabetes mellitus: CODE(S): E11.621 - Type 2 diabetes mellitus with foot ulcer; L97.509 - Non-pressure chronic ulcer of other part of unspecified foot with unspecified severity QUALIFIERS: Diabetic foot ulcer location: toe Laterality: left Non-pressure ulcer stage: with bone involvement without evidence of necrosis Qualified Code(s): E11.621 - Type 2 diabetes mellitus with foot ulcer; L97.526 - 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 involvement without evidence of necrosis (6) Osteomyelitis of great toe of left foot: CODE(S): M86.9 - Osteomyelitis, unspecified
[2021-06-16 10:40] LABS: Bedside Glucose 189 mg/dL (70-110)
[2021-06-16 11:07] VITALS: BP 160/88; BP 160/92; PULSE 66; RESP 17; RESP 18; TEMP 36.1
[2021-06-16 13:00] LABS: Bedside Glucose 105 mg/dL (70-110)
--- NOTE | 2021-06-16 17:11 | HBO.PN.PCM_ITS ---
History of Present Illness Date of Service: 06/16/21 Chief Complaint: Non-healing left third toe plantar wound with osteomyelitis History of Wound: This 75-year-old diabetic male patient was seen today as a podiatry consultation for nonhealing left third toe ulcer with suspected osteomyelitis. History of diabetes mellitus and per patient his last A1c was 7.6 percent. He reports compliance with his medication. He denies chills, fever, nausea, vomiting, diarrhea or other illness. Patient is undergoing treatment with advanced wound care as well as hyperbaric oxygen treatment to salvage his left foot. He has been walking in a regular close shoe. His swelling has also decreased. He is with his today. He was also seen by infectious disease specialist, Dr. Berry, today as well. He is interested in proceeding with hyperbaric oxygen therapy if possible. He also brought his offloading cam walker boot for adjustment today. Subjective Subjective Today's session represents the 32nd session of hyperbaric oxygen therapy of a planned 60 such sessions. Hyperbaric therapy was administered as per the facility's protocol. Hyperbaric oxygen therapy was administered at 2 tulio for 90 minutes, with no air breaks. Th e patient tolerated hyperbaric oxygen therapy well, without complaints or complications. Upon emergence from the hyperbaric chamber, the patient's vital signs remained stable. The patient was discharged in good condition. Pre and post treatment blood glucose levels are documented elsewhere. Objective Data Objective Data Vital Signs: Vital Signs Temp Pulse Resp BP 96.9 F L 66 18 160/88 H 06/16/21 11:07 06/16/21 11:07 06/16/21 11:07 06/16/21 11:07 Weight: 235 lb Body Mass Index (BMI) 30.6 Lab / Micro Data Labs: Laboratory Results - last 24 hr 06/16/21 10:36: POC Glucose 189 H 06/16/21 12:56: POC Glucose 105 Exam Physical Exam Const alert, oriented x3, no apparent distress and well nourished General Appearance: cooperative and well developed HEENT normocephalic Head and Scalp: atraumatic Eyes PERRL and EOMs intact bilaterally Resp normal respiratory effort and no use of accessory muscles Effort and Inspection: able to speak in complete sentences Psych affect normal Appearance: grossly normal Assessment/Plan Assessment/Plan (1) Non-pressure chronic ulcer of other part of left foot with necrosis of bone: CODE(S): L97.524 - Non-pressure chronic ulcer of other part of left foot with necrosis of bone (2) Cellulitis of left lower limb: CODE(S): L03.116 - Cellulitis of left lower limb (3) Deformity of toe of left foot: CODE(S): M20.62 - Acquired deformities of toe(s), unspecified, left foot (4) Osteomyelitis, unspecified: CODE(S): M86.9 - Osteomyelitis, unspecified QUALIFIERS: Osteomyelitis type: chronic multifocal Osteomyelitis location: foot Laterality: left Qualified Code(s): M86.372 - Chronic multifocal osteomyelitis, left ankle and foot (5) Nonhealing nonsurgical wound with fat layer exposed: CODE(S): T14.8XXA - Other injury of unspecified body region, initial encounter (6) 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 (7) Diabetic foot ulcer associated with type 2 diabetes mellitus: CODE(S): E11.621 - Type 2 diabetes mellitus with foot ulcer; L97.509 - Non-pressure chronic ulcer of other part of unspecified foot with unspecified severity QUALIFIERS: Diabetic foot ulcer location: toe Laterality: left Non-pressure ulcer stage: with bone involvement without evidence of necrosis Qualified Code(s): E11.621 - Type 2 diabetes mellitus with foot ulcer; L97.526 - 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 involvement without evidence of necrosis (8) Chronic osteomyelitis involving ankle and foot: CODE(S): M86.679 - Other chronic osteomyelitis, unspecified ankle and foot QUALIFIERS: Laterality: left Qualified Code(s): M86.672 - Other chronic osteomyelitis, left ankle and foot PLAN: The patient appears to be tolerating hyperbaric oxygen therapy well, which will be continued as per the patient's medical plan.
[2021-06-17 09:19] VITALS: BP 141/69; PULSE 81; TEMP 36.5; BMI 30.6
--- NOTE | 2021-06-17 10:08 | PCM.WC.PN ---
History of Present Illness Date of Service: 06/17/21 Chief Complaint: Non-healing left third toe plantar wound with osteomyelitis History of Wound: This 75-year-old diabetic male patient was seen today as a podiatry consultation for nonhealing left third toe ulcer with suspected osteomyelitis. History of diabetes mellitus and per patient his last A1c was 7.6 percent. He reports compliance with his medication. He denies chills, fever, nausea, vomiting, diarrhea or other illness. Patient is undergoing treatment with advanced wound care as well as hyperbaric oxygen treatment to salvage his left foot. He has been walking in a regular close shoe. His swelling has also decreased. He is with his today. He was also seen by infectious disease specialist, Dr. Berry, today as well. He is interested in proceeding with hyperbaric oxygen therapy if possible. He also brought his offloading cam walker boot for adjustment today. Progress of Wound: He has developed a through and through from the lateral aspect of his left third toe to the plantar side of the left third toe. We will start packing with half-inch iodoform gauze. Cultures will be obtained today we will call him with results. Patient is still receiving HBO treatments for another 30 days. Patient is still seeing Dr. Can for his infectious disease. Subjective Subjective No concerns at this time Objective Data Objective Data Left third toe is not erythematous normal color with a lateral and plantar hole that are communicating irrigated and debrided easily with a #3 debridement tolerated all well we will pack with iodoform gauze daily and follow-up in a week we did obtain cultures today Vital Signs: Vital Signs Temp Pulse Resp BP 97.7 F L 81 18 141/69 H 06/17/21 09:19 06/17/21 09:19 06/16/21 11:07 06/17/21 09:19 Weight: 235 lb Body Mass Index (BMI) 30.6 Lab / Micro Data Attestation: I reviewed the patient's lab results. Labs: Laboratory Results - last 24 hr 06/16/21 10:36: POC Glucose 189 H 06/16/21 12:56: POC Glucose 105 Physical Exam Const alert, oriented x3, no apparent distress and well nourished General Appearance: cooperative and well developed HEENT normocephalic Head and Scalp: atraumatic Eyes PERRL and EOMs intact bilaterally Resp normal respiratory effort and no use of accessory muscles Effort and Inspection: able to speak in complete sentences Cardio regular rate Palpation: normal PMI Heart Sounds: S1 normal Extremity General Extremity: normal exam except as noted Skin Wounds: wounds noted Psych affect normal Appearance: grossly normal Debridement Note Debridement Note Post-Debridement Measurements and Additional Note: Post-Debridement Measurements/Treatment - Nurse 1 - General Ulcer Assessment Start: 06/15/21 10:58 Freq: Status: Active Protocol: STEPHANIEEXAugustus Activity Type Activity Date Activity User E-Sign Co-Sign Detail Recorded Client Recorded Date Recorded By Document 06/17/21 09:19 OCTAVIO [id number] 06/17/21 09:29 MA 06/17/21 09:19 - Today's Visit Information Type of service Follow-up Visit (Physician/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 Any new allergies or adverse reactions No Had a fall/change in ADL's that may No increase risk of falls Signs or symptoms of abuse and/or No neglect since last visit Have you been in the hospital since your No last visit? Has dressing in place as prescribed Yes Has compression in place as prescribed Yes Has offloadiing in place as prescribed Yes Experienced any changes in pain level or No management Left Footwear Regular Shoe Right Footwear Regular Shoe - Nurse 1 - General Ulcer Measurement Start: 06/15/21 10:58 Freq: Status: Active Protocol: Activity Type Activity Date Activity User E-Sign Co-Sign Detail Recorded Client Recorded Date Recorded By Document 06/17/21 09:19 OCTAVIO [id number] 06/17/21 09:29 MA 06/17/21 09:19 Wound Center Nurse 1 #4- L PLANTAR 3RD TOE -Combined with other wound No -Epithelialization Small 1-33% -Tunneling No -Undermining/Tunneling No -Circular Undermining No -Exudate Amt Medium -Exudate Type Serosanguineous -Wound Margin Distinct, Outline Attached -Granulation Amt None Present (0 %) -Slough/Fibrin Yes -Necrosis Amt Small (1-33%) -Structure Exposed N/A -Texture (Angie-wound Skin Appearance) No Abnormality, Assessed -Moisture (Angie-wound Skin Appearance) Weeping -Color (Angie-wound Skin Appearance) No Abnormality, Assessed -Temperature (Angie-wound Skin No Abnormality Appearance) (Pt Warm) -Tenderness on Palpation (Angie-wound No Skin Appearance) -Ulcer Cleansing Rinsed/ Irrigated with Saline -Foul Odor after Cleansing No -Anesthetic Used 5% Lidocaine Gel JONNY - Nurse 2 - General Ulcer CM Notes Start: 06/15/21 10:58 Freq: Status: Active Protocol: Activity Type Activity Date Activity User E-Sign Co-Sign Detail Recorded Client Recorded Date Recorded By Document 06/17/21 09:48 MW [id number] 06/17/21 09:52 MW 06/17/21 09:48 Wound Center Nurse 2 -Time 09:49 -Correct Patient Yes -Correct Side, Site, Position Yes -Correct Procedure Yes -Procedure Performed Yes -Type of Procedure Debridement -Clinical Debridement Subcutaneous -Tissue Removed Subcutaneous -Post Debridement (cm) - Length 1.2 -Post Debridement (cm) - Width 1.8 -Post Debridement (cm) - Depth 1.5 -Total Square (Post) (cm) 2.16 -Area of Debridement (cm) - Length 1.2 -Area of Debridement (cm) - Width 1.8 -Total Square (Area) (cm) 2.16 -Tunneling No -Undermining/Tunneling No -Circular Undermining No -Wound/Ulcer Outcome Not Healed -Ulcer Cleansing Rinsed/ Irrigated with Saline -Foul Odor after Cleansing No -Bioengineered Tissue No -Bleeding Controlled with Pressure -Offloading No -Treatment Response Procedure Tolerated Well -Debridement - Subq, 1st 20sq cm Yes Pain Scale: 0-10 Numeric Is Patient Pain Free? Yes JONNY - Nurse 3 - General Ulcer D/C NN Start: 06/15/21 10:58 Freq: Status: Active Protocol: Activity Type Activity Date Activity User E-Sign Co-Sign Detail Recorded Client Recorded Date Recorded By Document 06/17/21 09:55 MW [id number] 06/17/21 09:57 MW 06/17/21 09:55 Wound Care Nurse 3 #4- L PLANTAR 3RD TOE -Ulcer Cleansing Rinsed/ Irrigated with Saline -Foul Odor after Cleansing No -Negative Pressure Wound Therapy N/A -Primary Dressing Applied Nugauze, Plain Iodoform -Primary Dressing Covered/Secured with Dry Gauze, Secured with Tape -Nugauze, Plain Iodoform / 1 Treatment Response Procedure Tolerated Well Pain Scale: 0-10 Numeric Is Patient Pain Free? Yes Teaching: Wound Center Dressing Your Wound -Person Taught Patient -Teaching Method Discussion -Response to teaching Verbalize understanding WC - Visit Discharge Discharge Condition Stable Ambulatory Status Ambulatory Transportation Private Auto Accompanied by self Medication Reconcilliation completed & No provided to patient/care provider Clinical Summary of Care Provided Yes Notes: HBO treatment to follow appointment Wound debrided: Left lateral third toe Laterality: Left Type of Debridement: Excisional debridement Anesthesia Used: 5% Lidocaine Gel Depth: Down to and including healthy tissue and in the subcutaneous layer Percentage of wound debrided: 100 Instrument Used: 3mm curette Tissue Removed: Fibrin Severity: Fat Layer Exposed Amount of bleeding with debridement: Mild Bleeding Controlled with: Compression and gauze Patient tolerated procedure: Patient tolerated procedure well Additional Wound Wound debrided: Left third plantar toe Type of Debridement: Excisional debridement Anesthesia Used: 5% Lidocaine Gel Depth: Down to and including healthy tissue and in the subcutaneous layer Percentage of wound debrided: 100 Instrument Used: 3mm curette Severity: Fat Layer Exposed Amount of bleeding with debridement: Mild Bleeding Controlled with: Pressure and Compression and gauze Patient tolerated procedure: Patient tolerated procedure well Assessment/Plan Assessment/Plan (1) Non-pressure chronic ulcer of other part of left foot with necrosis of bone: CODE(S): L97.524 - Non-pressure chronic ulcer of other part of left foot with necrosis of bone (2) Deformity of toe of left foot: CODE(S): M20.62 - Acquired deformities of toe(s), unspecified, left foot (3) Diabetic foot ulcer associated with type 2 diabetes mellitus: CODE(S): E11.621 - Type 2 diabetes mellitus with foot ulcer; L97.509 - Non-pressure chronic ulcer of other part of unspecified foot with unspecified severity QUALIFIERS: Diabetic foot ulcer location: toe Laterality: left Non-pressure ulcer stage: with bone involvement without evidence of necrosis Qualified Code(s): E11.621 - Type 2 diabetes mellitus with foot ulcer; L97.526 - 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 involvement without evidence of necrosis PLAN: Cleanse foot with antibacterial soap pack wound from lateral to posterior with half-inch iodoform gauze cover with gauze and tape every day Follow-up in 1 week Obtained cultures will call with results (4) Non-healing surgical wound: CODE(S): T81.89XA - Other complications of procedures, not elsewhere classified, initial encounter QUALIFIERS: Encounter type: subsequent encounter Qualified Code(s): T81.89XD - Other complications of procedures, not elsewhere classified, subsequent encounter
[2021-06-17 10:36] LABS: Bedside Glucose 159 mg/dL (70-110)
[2021-06-17 11:44] VITALS: BP 141/69; BP 159/85; PULSE 68; PULSE 81; RESP 16; TEMP 36.4; TEMP 36.5
--- NOTE | 2021-06-17 12:11 | HBO.PN.PCM_ITS ---
History of Present Illness Date of Service: 06/17/21 Chief Complaint: Non-healing left third toe plantar wound with osteomyelitis History of Wound: This 75-year-old diabetic male patient was seen today as a podiatry consultation for nonhealing left third toe ulcer with suspected osteomyelitis. History of diabetes mellitus and per patient his last A1c was 7.6 percent. He reports compliance with his medication. He denies chills, fever, nausea, vomiting, diarrhea or other illness. Patient is undergoing treatment with advanced wound care as well as hyperbaric oxygen treatment to salvage his left foot. He has been walking in a regular close shoe. His swelling has also decreased. He is with his today. He was also seen by infectious disease specialist, Dr. Berry, today as well. He is interested in proceeding with hyperbaric oxygen therapy if possible. He also brought his offloading cam walker boot for adjustment today. Progress of Wound: He has developed a through and through from the lateral aspect of his left third toe to the plantar side of the left third toe. We will start packing with half-inch iodoform gauze. Cultures will be obtained today we will call him with results. Patient is still receiving HBO treatments for anot her 30 days. Patient is still seeing Dr. Can for his infectious disease. Patient is successfully completing his 33 years of 160 treatments on his HBO vital signs are stable patient will be discharged for another day. Objective Data Objective Data Vital Signs: Vital Signs Temp Pulse Resp BP 97.7 F L 81 16 141/69 H 06/17/21 11:44 06/17/21 11:44 06/17/21 11:44 06/17/21 11:44 Weight: 235 lb Body Mass Index (BMI) 30.6 Lab / Micro Data Labs: Laboratory Results - last 24 hr 06/16/21 12:56: POC Glucose 105 06/17/21 10:31: POC Glucose 159 H Exam Nursing Assessment and Debridement Post-Debridement Measurements and Additional Note: Post-Debridement Measurements/Treatment WC - Nurse 1 - General Ulcer Assessment Start: 06/15/21 10:58 Freq: Status: Active Protocol: [email or web address] Activity Type Activity Date Activity User E-Sign Co-Sign Detail Recorded Client Recorded Date Recorded By Document 06/17/21 09:19 OCTAVIO [id number] 06/17/21 09:29 AK 06/17/21 09:19 WC - Today's Visit Information Type of service Follow-up Visit (Physician/OFFICE SERVICES CLERK ) Arrival Mode Ambulatory Patient Identification Verified (Name & Yes ) Height and Weight Body Mass Index (BMI) 30.6 BMI Classification Obese Vital Signs Temperature (97.8 F-99.1 F) 97.7 F L Temperature Source Temporal Pulse Rate (60-100) 81 Blood Pressure (90/60-120/80) 141/69 H Blood Pressure Mean (mm Hg) 93 Source Monitor History Since Last Visit- (Skip if this is Patient's initial visit) Have you changed medications since your No last visit? Any new allergies or adverse reactions No Had a fall/change in ADL's that may No increase risk of falls Signs or symptoms of abuse and/or No neglect since last visit Have you been in the hospital since your No last visit? Has dressing in place as prescribed Yes Has compression in place as prescribed Yes Has offloadiing in place as prescribed Yes Experienced any changes in pain level or No management Left Footwear Regular Shoe Right Footwear Regular Shoe - Nurse 1 - General Ulcer Measurement Start: 06/15/21 10:58 Freq: Status: Active Protocol: Activity Type Activity Date Activity User E-Sign Co-Sign Detail Recorded Client Recorded Date Recorded By Document 06/17/21 09:19 SC [id number] 06/17/21 09:29 AK 06/17/21 09:19 Wound Center Nurse 1 #4- L PLANTAR 3RD TOE -Combined with other wound No -Epithelialization Small 1-33% -Tunneling No -Undermining/Tunneling No -Circular Undermining No -Exudate Amt Medium -Exudate Type Serosanguineous -Wound Margin Distinct, Outline Attached -Granulation Amt None Present (0 %) -Slough/Fibrin Yes -Necrosis Amt Small (1-33%) -Structure Exposed N/A -Texture (Angie-wound Skin Appearance) No Abnormality, Assessed -Moisture (Angie-wound Skin Appearance) Weeping -Color (Angie-wound Skin Appearance) No Abnormality, Assessed -Temperature (Angie-wound Skin No Abnormality Appearance) (Pt Warm) -Tenderness on Palpation (Angie-wound No Skin Appearance) -Ulcer Cleansing Rinsed/ Irrigated with Saline -Foul Odor after Cleansing No -Anesthetic Used 5% Lidocaine Gel - Nurse 2 - General Ulcer CM Notes Start: 06/15/21 10:58 Freq: Status: Active Protocol: Activity Type Activity Date Activity User E-Sign Co-Sign Detail Recorded Client Recorded Date Recorded By Document 06/17/21 09:48 MW [id number] 06/17/21 09:52 MW 06/17/21 09:48 Wound Center Nurse 2 -Time 09:49 -Correct Patient Yes -Correct Side, Site, Position Yes -Correct Procedure Yes -Procedure Performed Yes -Type of Procedure Debridement -Clinical Debridement Subcutaneous -Tissue Removed Subcutaneous -Post Debridement (cm) - Length 1.2 -Post Debridement (cm) - Width 1.8 -Post Debridement (cm) - Depth 1.5 -Total Square (Post) (cm) 2.16 -Area of Debridement (cm) - Length 1.2 -Area of Debridement (cm) - Width 1.8 -Total Square (Area) (cm) 2.16 -Tunneling No -Undermining/Tunneling No -Circular Undermining No -Wound/Ulcer Outcome Not Healed -Ulcer Cleansing Rinsed/ Irrigated with Saline -Foul Odor after Cleansing No -Bioengineered Tissue No -Bleeding Controlled with Pressure -Offloading No -Treatment Response Procedure Tolerated Well -Debridement - Subq, 1st 20sq cm Yes Pain Scale: 0-10 Numeric Is Patient Pain Free? Yes WC - Nurse 3 - General Ulcer D/C NN Start: 06/15/21 10:58 Freq: Status: Active Protocol: Activity Type Activity Date Activity User E-Sign Co-Sign Detail Recorded Client Recorded Date Recorded By Document 06/17/21 09:55 MW [id number] 06/17/21 09:57 MW 06/17/21 09:55 Wound Care Nurse 3 #4- L PLANTAR 3RD TOE -Ulcer Cleansing Rinsed/ Irrigated with Saline -Foul Odor after Cleansing No -Negative Pressure Wound Therapy N/A -Primary Dressing Applied Nugauze, Plain Iodoform -Primary Dressing Covered/Secured with Dry Gauze, Secured with Tape -Nugauze, Plain Iodoform 1/4 1 Treatment Response Procedure Tolerated Well Pain Scale: 0-10 Numeric Is Patient Pain Free? Yes Teaching: Wound Center Dressing Your Wound -Person Taught Patient -Teaching Method Discussion -Response to teaching Verbalize understanding WC - Visit Discharge Discharge Condition Stable Ambulatory Status Ambulatory Transportation Private Auto Accompanied by self Medication Reconcilliation completed & No provided to patient/care provider Clinical Summary of Care Provided Yes Notes: HBO treatment to follow appointment Assessment/Plan Assessment/Plan (1) Non-pressure chronic ulcer of other part of left foot with necrosis of bone: CODE(S): L97.524 - Non-pressure chronic ulcer of other part of left foot with necrosis of bone (2) Cellulitis of left lower limb: CODE(S): L03.116 - Cellulitis of left lower limb (3) Ulcer of left foot with bone involvement without evidence of necrosis: CODE(S): L97.526 - 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 involvement without evidence of necrosis (4) Osteomyelitis, unspecified: CODE(S): M86.9 - Osteomyelitis, unspecified QUALIFIERS: Osteomyelitis type: chronic multifocal Osteomyelitis location: foot Laterality: left Qualified Code(s): M86.372 - Chronic multifocal osteomyelitis, left ankle and foot (5) Diabetic foot ulcer associated with type 2 diabetes mellitus: CODE(S): E11.621 - Type 2 diabetes mellitus with foot ulcer; L97.509 - Non-pressure chronic ulcer of other part of unspecified foot with unspecified severity QUALIFIERS: Diabetic foot ulcer location: toe Laterality: left Non-pressure ulcer stage: with bone involvement without evidence of necrosis Qualified Code(s): E11.621 - Type 2 diabetes mellitus with foot ulcer; L97.526 - 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 involvement without evidence of necrosis (6) Osteomyelitis of great toe of left foot: CODE(S): M86.9 - Osteomyelitis, unspecified
[2021-06-17 12:51] LABS: Bedside Glucose 132 mg/dL (70-110)
[2021-06-18 10:30] LABS: Bedside Glucose 236 mg/dL (70-110)
[2021-06-18 11:20] VITALS: BP 136/73; BP 172/81; PULSE 64; PULSE 74; RESP 16; RESP 17; TEMP 36.3; TEMP 36.4
--- NOTE | 2021-06-18 12:33 | HBO.PN.PCM_ITS ---
History of Present Illness Date of Service: 06/18/21 Chief Complaint: Non-healing left third toe plantar wound with osteomyelitis History of Wound: This 75-year-old diabetic male patient was seen today as a podiatry consultation for nonhealing left third toe ulcer with suspected osteomyelitis. History of diabetes mellitus and per patient his last A1c was 7.6 percent. He reports compliance with his medication. He denies chills, fever, nausea, vomiting, diarrhea or other illness. Patient is undergoing treatment with advanced wound care as well as hyperbaric oxygen treatment to salvage his left foot. He has been walking in a regular close shoe. His swelling has also decreased. He is with his today. He was also seen by infectious disease specialist, Dr. Berry, today as well. He is interested in proceeding with hyperbaric oxygen therapy if possible. He also brought his offloading cam walker boot for adjustment today. Subjective Subjective Today's hyperbaric oxygen therapy session represents the 24th of such session of the planned 60 such sessions. Some bright red drainage noted from his left ear. Patient denied pain or congestion. [place] well. Hyperbaric oxygen therapy was administered as per the facility's protocol.? Hyperbaric oxygen therapy was administered at 2 tulio for 90 minutes with no air breaks.? The patient tolerated hyperbaric oxygen therapy well, without complaints or complications.? Upon emergence from the hyperbaric chamber, the patient's vital signs remained stable.? The patient was discharged in good condition.? Pre-and post?hyperbaric oxygen therapy blood glucose levels were documented elsewhere. Objective Data Objective Data Vital Signs: Vital Signs Temp Pulse Resp BP 97.5 F L 64 17 136/73 H 06/18/21 11:20 06/18/21 11:20 06/18/21 11:20 06/18/21 11:20 Weight: 235 lb Body Mass Index (BMI) 30.6 Lab / Micro Data Labs: Laboratory Results - last 24 hr 06/17/21 12:44: POC Glucose 132 H 06/18/21 10:26: POC Glucose 236 H Micro: Microbiology 06/17/21 09:50 Wound Abcess - Toe Gram Stain - Final 06/17/21 09:50 Wound Abcess - Toe Wound Culture - Preliminary Mixed Gram Positive Organisms Exam Physical Exam Const alert, oriented x3, no apparent distress and well nourished General Appearance: cooperative and well developed HEENT normocephalic and head/scalp atraumatic Head and Scalp: normocephalic and atraumatic Eyes PERRL and EOMs intact bilaterally Resp normal respiratory effort and no use of accessory muscles Effort and Inspection: able to speak in complete sentences Psych affect normal Appearance: grossly normal Nursing Assessment and Debridement Post-Debridement Measurements and Additional Note: Post-Debridement Measurements/Treatment - Nurse 1 - General Ulcer Assessment Start: 06/15/21 10:58 Freq: Status: Active Protocol: REMA Activity Type Activity Date Activity User E-Sign Co-Sign Detail Recorded Client Recorded Date Recorded By Document 06/17/21 09:19 OCTAVIO [id number] 06/17/21 09:29 AK 06/17/21 09:19 - Today's Visit Information Type of service 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 Any new allergies or adverse reactions No Had a fall/change in ADL's that may No increase risk of falls Signs or symptoms of abuse and/or No neglect since last visit Have you been in the hospital since your No last visit? Has dressing in place as prescribed Yes Has compression in place as prescribed Yes Has offloadiing in place as prescribed Yes Experienced any changes in pain level or No management Left Footwear Regular Shoe Right Footwear Regular Shoe - Nurse 1 - General Ulcer Measurement Start: 06/15/21 10:58 Freq: Status: Active Protocol: Activity Type Activity Date Activity User E-Sign Co-Sign Detail Recorded Client Recorded Date Recorded By Document 06/17/21 09:19 OCTAVIO [id number] 06/17/21 09:29 AK 06/17/21 09:19 Wound Center Nurse 1 #4- L PLANTAR 3RD TOE -Combined with other wound No -Epithelialization Small 1-33% -Tunneling No -Undermining/Tunneling No -Circular Undermining No -Exudate Amt Medium -Exudate Type Serosanguineous -Wound Margin Distinct, Outline Attached -Granulation Amt None Present (0 %) -Slough/Fibrin Yes -Necrosis Amt Small (1-33%) -Structure Exposed N/A -Texture (Angie-wound Skin Appearance) No Abnormality, Assessed -Moisture (Angie-wound Skin Appearance) Weeping -Color (Angie-wound Skin Appearance) No Abnormality, Assessed -Temperature (Angie-wound Skin No Abnormality Appearance) (Pt Warm) -Tenderness on Palpation (Angie-wound No Skin Appearance) -Ulcer Cleansing Rinsed/ Irrigated with Saline -Foul Odor after Cleansing No -Anesthetic Used 5% Lidocaine Gel WC - Nurse 2 - General Ulcer CM Notes Start: 06/15/21 10:58 Freq: Status: Active Protocol: Activity Type Activity Date Activity User E-Sign Co-Sign Detail Recorded Client Recorded Date Recorded By Document 06/17/21 09:48 MW [id number] 06/17/21 09:52 MW 06/17/21 09:48 Wound Center Nurse 2 -Time 09:49 -Correct Patient Yes -Correct Side, Site, Position Yes -Correct Procedure Yes -Procedure Performed Yes -Type of Procedure Debridement -Clinical Debridement Subcutaneous -Tissue Removed Subcutaneous -Post Debridement (cm) - Length 1.2 -Post Debridement (cm) - Width 1.8 -Post Debridement (cm) - Depth 1.5 -Total Square (Post) (cm) 2.16 -Area of Debridement (cm) - Length 1.2 -Area of Debridement (cm) - Width 1.8 -Total Square (Area) (cm) 2.16 -Tunneling No -Undermining/Tunneling No -Circular Undermining No -Wound/Ulcer Outcome Not Healed -Ulcer Cleansing Rinsed/ Irrigated with Saline -Foul Odor after Cleansing No -Bioengineered Tissue No -Bleeding Controlled with Pressure -Offloading No -Treatment Response Procedure Tolerated Well -Debridement - Subq, 1st 20sq cm Yes Pain Scale: 0-10 Numeric Is Patient Pain Free? Yes JONNY - Nurse 3 - General Ulcer D/C NN Start: 06/15/21 10:58 Freq: Status: Active Protocol: Activity Type Activity Date Activity User E-Sign Co-Sign Detail Recorded Client Recorded Date Recorded By Document 06/17/21 09:55 MW [id number] 06/17/21 09:57 MW 06/17/21 09:55 Wound Care Nurse 3 #4- L PLANTAR 3RD TOE -Ulcer Cleansing Rinsed/ Irrigated with Saline -Foul Odor after Cleansing No -Negative Pressure Wound Therapy N/A -Primary Dressing Applied Nugauze, Plain Iodoform -Primary Dressing Covered/Secured with Dry Gauze, Secured with Tape -Nugauze, Plain Iodoform 1/4 1 Treatment Response Procedure Tolerated Well Pain Scale: 0-10 Numeric Is Patient Pain Free? Yes Teaching: Wound Center Dressing Your Wound -Person Taught Patient -Teaching Method Discussion -Response to teaching Verbalize understanding WC - Visit Discharge Discharge Condition Stable Ambulatory Status Ambulatory Transportation Private Auto Accompanied by self Medication Reconcilliation completed & No provided to patient/care provider Clinical Summary of Care Provided Yes Notes: HBO treatment to follow appointment Charges/Coding Wound Center CF Procedures HBO Supervision: [id number] Hyperbaric Oxygen; supervision Assessment/Plan Assessment/Plan (1) Nonhealing nonsurgical wound with fat layer exposed: CODE(S): T14.8XXA - Other injury of unspecified body region, initial encounter (2) Osteomyelitis of great toe of left foot: CODE(S): M86.9 - Osteomyelitis, unspecified (3) Diabetic foot ulcer associated with type 2 diabetes mellitus: CODE(S): E11.621 - Type 2 diabetes mellitus with foot ulcer; L97.509 - No n-pressure chronic ulcer of other part of unspecified foot with unspecified severity QUALIFIERS: Diabetic foot ulcer location: toe Laterality: left Non-pressure ulcer stage: with bone involvement without evidence of necrosis Qualified Code(s): E11.621 - Type 2 diabetes mellitus with foot ulcer; L97.526 - 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 involvement without evidence of necrosis PLAN: Patient is tolerating hyperbaric oxygen therapy well and will continue as per his medical plan. He was however advised to get evaluated by his ENT due to bleeding noted. This note was generated with [employer] dictation software. It may contain incorrect words, spelling, and punctuation that were not noted in checking the note before signing.
[2021-06-18 13:05] LABS: Bedside Glucose 141 mg/dL (70-110)
[2021-06-19 10:30] LABS: Bedside Glucose 165 mg/dL (70-110)
--- NOTE | 2021-06-19 13:52 | HBO.PN.PCM_ITS ---
History of Present Illness Date of Service: 06/19/21 Chief Complaint: Non-healing left third toe plantar wound with osteomyelitis History of Wound: This 75-year-old diabetic male patient was seen today as a podiatry consultation for nonhealing left third toe ulcer with suspected osteomyelitis. History of diabetes mellitus and per patient his last A1c was 7.6 percent. He reports compliance with his medication. He denies chills, fever, nausea, vomiting, diarrhea or other illness. Patient is undergoing treatment with advanced wound care as well as hyperbaric oxygen treatment to salvage his left foot. He has been walking in a regular close shoe. His swelling has also decreased. He is with his today. He was also seen by infectious disease specialist, Dr. Berry, today as well. He is interested in proceeding with hyperbaric oxygen therapy if possible. He also brought his offloading cam walker boot for adjustment today. Subjective Subjective Today's hyperbaric oxygen therapy session represents the 25th of such session of the planned 60 such sessions. Had bleeding in left ear after HBO treatment yesterday 06/18/21. Upon exam today there is clotted blood and some dried blood in EAC and nonvisualization of his tympanostomy tube. Patient denied pain or congestion. [place] well. Although he does not have any pain currently, recommended that he see ENT prior to restarting treatment for evaluation of cause of bleeding and to have ear canal irrigated and make sure blood is not clotting the tympanostomy tube closed. He did not undergo HBO treatment on 06/19/21 due to above. Objective Data Objective Data Vital Signs: Vital Signs Temp Pulse Resp BP 97.5 F L 64 17 136/73 H 06/18/21 11:20 06/18/21 11:20 06/18/21 11:20 06/18/21 11:20 Weight: 106.594 kg Body Mass Index (BMI) 30.6 Lab / Micro Data Labs: Laboratory Results - last 24 hr 06/19/21 10:28: POC Glucose 165 H Micro: Microbiology 06/17/21 09:50 Wound Abcess - Toe Gram Stain - Final 06/17/21 09:50 Wound Abcess - Toe Wound Culture - Preliminary Staphylococcus aureus Coag Negative Staph Gram positive chris 06/17/21 09:50 Wound Abcess - Toe Anaerobic Culture - Preliminary Checking for anaerobes, further studies to follow. Exam Physical Exam Const alert, oriented x3 and no apparent distress HEENT HEENT Narrative: L ear - EAC obstructed with maroon thickened, clotted blood and dried blood closer to external ear without visualization of the left TM or tympanostomy tube R ear - EAC clear and TM visualized with tympanostomy tube open and in place. 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 Any new allergies or adverse reactions No Had a fall/change in ADL's that may No increase risk of falls Signs or symptoms of abuse and/or No neglect since last visit Have you been in the hospital since your No last visit? Has dressing in place as prescribed Yes Has compression in place as prescribed Yes Has offloadiing in place as prescribed Yes Experienced any changes in pain level or No management Left Footwear Regular Shoe Right Footwear Regular Shoe - Nurse 1 - General Ulcer Measurement Start: 06/15/21 10:58 Freq: Status: Active Protocol: Activity Type Activity Date Activity User E-Sign Co-Sign Detail Recorded Client Recorded Date Recorded By Document 06/17/21 09:19 OCTAVIO [id number] 06/17/21 09:29 AK 06/17/21 09:19 Wound Center Nurse 1 #4- L PLANTAR 3RD TOE -Combined with other wound No -Epithelialization Small 1-33% -Tunneling No -Undermining/Tunneling No -Circular Undermining No -Exudate Amt Medium -Exudate Type Serosanguineous -Wound Margin Distinct, Outline Attached -Granulation Amt None Present (0 %) -Slough/Fibrin Yes -Necrosis Amt Small (1-33%) -Structure Exposed N/A -Texture (Angie-wound Skin Appearance) No Abnormality, Assessed -Moisture (Angie-wound Skin Appearance) Weeping -Color (Angie-wound Skin Appearance) No Abnormality, Assessed -Temperature (Angie-wound Skin No Abnormality Appearance) (Pt Warm) -Tenderness on Palpation (Angie-wound No Skin Appearance) -Ulcer Cleansing Rinsed/ Irrigated with Saline -Foul Odor after Cleansing No -Anesthetic Used 5% Lidocaine Gel WC - Nurse 2 - General Ulcer CM Notes Start: 06/15/21 10:58 Freq: Status: Active Protocol: Activity Type Activity Date Activity User E-Sign Co-Sign Detail Recorded Client Recorded Date Recorded By Document 06/17/21 09:48 MW [id number] 06/17/21 09:52 MW 06/17/21 09:48 Wound Center Nurse 2 -Time 09:49 -Correct Patient Yes -Correct Side, Site, Position Yes -Correct Procedure Yes -Procedure Performed Yes -Type of Procedure Debridement -Clinical Debridement Subcutaneous -Tissue Removed Subcutaneous -Post Debridement (cm) - Length 1.2 -Post Debridement (cm) - Width 1.8 -Post Debridement (cm) - Depth 1.5 -Total Square (Post) (cm) 2.16 -Area of Debridement (cm) - Length 1.2 -Area of Debridement (cm) - Width 1.8 -Total Square (Area) (cm) 2.16 -Tunneling No -Undermining/Tunneling No -Circular Undermining No -Wound/Ulcer Outcome Not Healed -Ulcer Cleansing Rinsed/ Irrigated with Saline -Foul Odor after Cleansing No -Bioengineered Tissue No -Bleeding Controlled with Pressure -Offloading No -Treatment Response Procedure Tolerated Well -Debridement - Subq, 1st 20sq cm Yes Pain Scale: 0-10 Numeric Is Patient Pain Free? Yes JONNY - Nurse 3 - General Ulcer D/C NN Start: 06/15/21 10:58 Freq: Status: Active Protocol: Activity Type Activity Date Activity User E-Sign Co-Sign Detail Recorded Client Recorded Date Recorded By Document 06/17/21 09:55 MW [id number] 06/17/21 09:57 MW 06/17/21 09:55 Wound Care Nurse 3 #4- L PLANTAR 3RD TOE -Ulcer Cleansing Rinsed/ Irrigated with Saline -Foul Odor after Cleansing No -Negative Pressure Wound Therapy N/A -Primary Dressing Applied Nugauze, Plain Iodoform -Primary Dressing Covered/Secured with Dry Gauze, Secured with Tape -Nugauze, Plain Iodoform / 1 Treatment Response Procedure Tolerated Well Pain Scale: 0-10 Numeric Is Patient Pain Free? Yes Teaching: Wound Center Dressing Your Wound -Person Taught Patient -Teaching Method Discussion -Response to teaching Verbalize understanding WC - Visit Discharge Discharge Condition Stable Ambulatory Status Ambulatory Transportation Private Auto Accompanied by self Medication Reconcilliation completed & No provided to patient/care provider Clinical Summary of Care Provided Yes Notes: HBO treatment to follow appointment Assessment/Plan Assessment/Plan (1) Non-pressure chronic ulcer of other part of left foot with necrosis of bone: CODE(S): L97.524 - Non-pressure chronic ulcer of other part of left foot with necrosis of bone (2) Ulcer of left foot with bone involvement without evidence of necrosis: CODE(S): L97.526 - 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 involvement without evidence of necrosis (3) Osteomyelitis, unspecified: CODE(S): M86.9 - Osteomyelitis, unspecified QUALIFIERS: Laterality: left Osteomyelitis location: foot Osteomyelitis type: chronic multifocal Qualified Code(s): M86.372 - Chronic multifocal osteomyelitis, left ankle and foot (4) Diabetic foot ulcer associated with type 2 diabetes mellitus: CODE(S): E11.621 - Type 2 diabetes mellitus with foot ulcer; L97.509 - Non-pressure chronic ulcer of other part of unspecified foot with unspecified severity QUALIFIERS: Diabetic foot ulcer location: toe Laterality: left Non-pressure ulcer stage: with bone involvement without evidence of necrosis Q ualified Code(s): E11.621 - Type 2 diabetes mellitus with foot ulcer; L97.526 - 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 involvement without evidence of necrosis PLAN: Patient is tolerating hyperbaric oxygen therapy well but no treatment given today because of blood in left ear. He was advised to get evaluated by his ENT due to bleeding noted prior to restarting treatment.
--- NOTE | 2021-06-22 14:20 | WC ---
Prescription for Linezolid 600mg PO BID x 14 days dispense 28 no Refills VM was left with pt to contact the WC regard the prescription.
[2021-06-24 09:22] VITALS: BP 181/88; PULSE 77; RESP 18; TEMP 35.9; BMI 30.6
--- NOTE | 2021-06-24 10:13 | PN.PCM_ITS ---
History of Present Illness Date of Service: 06/24/21 Chief Complaint: Non-healing left third toe plantar wound with osteomyelitis History of Wound: This 75-year-old diabetic male patient was seen today as a podiatry consultation for nonhealing left third toe ulcer with suspected osteomyelitis. History of diabetes mellitus and per patient his last A1c was 7.6 percent. He reports compliance with his medication. He denies chills, fever, nausea, vomiting, diarrhea or other illness. Patient is undergoing treatment with advanced wound care as well as hyperbaric oxygen treatment to salvage his left foot. He has been walking in a regular close shoe. His swelling has also decreased. He is with his today. He was also seen by infectious disease specialist, Dr. Berry, today as well. He is interested in proceeding with hyperbaric oxygen therapy if possible. He also brought his offloading cam walker boot for adjustment today. Progress of Wound: Third toe still has connecting open areas of tunneling smaller than was last week clean wounds. Cultures came back positive for 2 bacteria is patient is already on doxycycline but only covers one of the bacteria is we will start linezolid also 600 mg 2 times a day for 14 days. Patient is finishing up his metronidazole also. He is seeing Dr. Whiteside for his infectious disease. Patient is to restart HBO tomorrow has had ear bleeding problems and was cleared by ear nose throat yesterday. Subjective Subjective Patient has no concerns and is doing well with dressing changes has no concerns either Objective Data Objective Data The wound itself looks clean and has no odor surrounding tissue is well approximated and no redness or irritation noted. We have been packing with half inch iodoform gauze tolerating well is able to do the packing wounds are measuring smaller follow-up weekly Vital Signs: Vital Signs Temp Pulse Resp BP 96.6 F L 77 18 181/88 H 06/24/21 09:22 06/24/21 09:22 06/24/21 09:22 06/24/21 09:22 Weight: 235 lb Body Mass Index (BMI) 30.6 Lab / Micro Data Micro: Microbiology 06/17/21 09:50 Wound Abcess - Toe Gram Stain - Final 06/17/21 09:50 Wound Abcess - Toe Wound Culture - Final Staphylococcus aureus Staphylococcus epidermidis Gram positive chris 06/17/21 09:50 Wound Abcess - Toe Anaerobic Culture - Final No anaerobic bacteria isolated. Physical Exam Const alert, oriented x3 and no apparent distress HEENT HEENT Narrative: L ear - EAC obstructed with maroon thickened, clotted blood and dried blood closer to external ear without visualization of the left TM or tympanostomy tube R ear - EAC clear and TM visualized with tympanostomy tube open and in place. Face and Sinus: normal facial exam Mouth: oral and palatal mucosa normal Throat: posterior oropharynx normal Debridement Note Debridement Note Post-Debridement Measurements and Additional Note: Post-Debridement Measurements/Treatment - Nurse 1 - General Ulcer Assessment Start: 06/15/21 10:58 Freq: Status: Active Protocol: JONNY.Auto Load LogicEXT Activity Type Activity Date Activity User E-Sign Co-Sign Detail Recorded Client Recorded Date Recorded By Document 06/17/21 09:19 AK [id number] 06/17/21 09:29 AK Document 06/24/21 09:22 PL [id number] 06/24/21 09:33 PL 06/17/21 06/24/21 09:19 09:22 - Today's Visit Information Type of service Follow-up Visit Follow-up Visit (Physician/FELT HAT FLANGING OPERATOR (Physician/FELT HAT FLANGING OPERATOR ) ) Arrival Mode Ambulatory Ambulatory Transfer Assistance None Patient Identification Verified (Name & Yes Yes ) Patient Requires Transmission-Based No Precautions Safety Precautions NA Finger Stick Blood Sugar(mg/dl) (if 115 indicated): Blood Sugar Stated by Patient Height and Weight Body Mass Index (BMI) 30.6 30.6 BMI Classification Obese Obese Vital Signs Temperature (97.8 F-99.1 F) 97.7 F L 96.6 F L Temperature Source Temporal Temporal Pulse Rate (60-100) 81 77 Respiratory Rate (12-18) 18 Blood Pressure (90/60-120/80) 141/69 H 181/88 H Blood Pressure Mean (mm Hg) 93 119 Source Monitor History Since Last Visit- (Skip if this is Patient's initial visit) Have you changed medications since your No No last visit? Any new allergies or adverse reactions No No Had a fall/change in ADL's that may No No increase risk of falls Signs or symptoms of abuse and/or No No neglect since last visit Have you been in the hospital since your No No last visit? Has dressing in place as prescribed Yes Yes Has compression in place as prescribed Yes Yes Has offloadiing in place as prescribed Yes Yes Experienced any changes in pain level or No No management Left Footwear Regular Shoe Right Footwear Regular Shoe WC - Nurse 1 - General Ulcer Measurement Start: 06/15/21 10:58 Freq: Status: Active Protocol: Activity Type Activity Date Activity User E-Sign Co-Sign Detail Recorded Client Recorded Date Recorded By Document 06/17/21 09:19 AK [id number] 06/17/21 09:29 AK Document 06/24/21 09:22 PL [id number] 06/24/21 09:33 PL 06/17/21 06/24/21 09:19 09:22 Wound Center Nurse 1 #4- L PLANTAR 3RD TOE -Combined with other wound No -Current Size (cm) - Length 0.3 -Current Size (cm) - Width 1.5 -Current Size (cm) - Depth 0.4 -Total Square Cm 0.45 -Photo Taken No -Epithelialization Small 1-33% -Tunneling No -Tunneling Position (O'clock) 9 -Tunneling Distance (cm) 1.0 -Undermining/Tunneling No -Circular Undermining No -Exudate Amt Medium Medium -Exudate Type Serosanguineous Serosanguineous -Wound Margin Distinct, Outline Attached -Granulation Amt None Present (0 Medium (34-66%) %) -Granulation Quality [place] -Slough/Fibrin Yes Yes -Necrosis Amt Small (1-33%) Medium (34-66%) -Necrotic Tissue Type Adherent Slough -Structure Exposed N/A -Texture (Angie-wound Skin Appearance) No Abnormality, Localized Edema Assessed -Moisture (Angie-wound Skin Appearance) Weeping No Abnormality -Color (Angie-wound Skin Appearance) No Abnormality, No Abnormality Assessed -Temperature (Angie-wound Skin No Abnormality No Abnormality Appearance) (Pt Warm) (Pt Warm) -Tenderness on Palpation (Angie-wound No No Skin Appearance) -Ulcer Cleansing Rinsed/ Rinsed/ Irrigated with Irrigated with Saline Saline -Foul Odor after Cleansing No -Anesthetic Used 5% Lidocaine 5% Lidocaine Gel Gel WC - Nurse 2 - General Ulcer CM Notes Start: 06/15/21 10:58 Freq: Status: Active Protocol: Activity Type Activity Date Activity User E-Sign Co-Sign Detail Recorded Client Recorded Date Recorded By Document 06/17/21 09:48 MW [id number] 06/17/21 09:52 MW Document 06/24/21 09:49 MW [id number] 06/24/21 09:56 MW 06/17/21 06/24/21 09:48 09:49 Wound Center Nurse 2 #4- L PLANTAR 3RD TOE -Time 09:49 09:49 -Correct Patient Yes Yes -Correct Side, Site, Position Yes Yes -Correct Procedure Yes Yes -Procedure Performed Yes Yes -Type of Procedure Debridement Debridement -Clinical Debridement Subcutaneous Subcutaneous -Tissue Removed Subcutaneous Subcutaneous -Post Debridement (cm) - Length 1.2 0.3 -Post Debridement (cm) - Width 1.8 1.6 -Post Debridement (cm) - Depth 1.5 0.6 -Total Square (Post) (cm) 2.16 0.48 -Area of Debridement (cm) - Length 1.2 0.3 -Area of Debridement (cm) - Width 1.8 1.6 -Total Square (Area) (cm) 2.16 0.48 -Tunneling No No -Undermining/Tunneling No No -Circular Undermining No No -Wound/Ulcer Outcome Not Healed Not Healed -Ulcer Cleansing Rinsed/ Rinsed/ Irrigated with Irrigated with Saline Saline -Foul Odor after Cleansing No No -Bioengineered Tissue No No -Bleeding Controlled with Pressure Pressure -Offloading No No -Treatment Response Procedure Procedure Tolerated Well Tolerated Well -Debridement - Subq, 1st 20sq cm Yes Yes Pain Scale: 0-10 Numeric Is Patient Pain Free? Yes Yes - Nurse 3 - General Ulcer D/C NN Start: 06/15/21 10:58 Freq: Status: Active Protocol: Activity Type Activity Date Activity User E-Sign Co-Sign Detail Recorded Client Recorded Date Recorded By Document 06/17/21 09:55 MW [id number] 06/17/21 09:57 MW Document 06/24/21 09:56 MW [id number] 06/24/21 09:57 MW 06/17/21 06/24/21 09:55 09:56 Wound Care Nurse 3 #4- L PLANTAR 3RD TOE -Ulcer Cleansing Rinsed/ Rinsed/ Irrigated with Irrigated with Saline Saline -Foul Odor after Cleansing No No -Negative Pressure Wound Therapy N/A N/A -Primary Dressing Applied Nugauze, Plain Nugauze, Iodoform Iodoform -Primary Dressing Covered/Secured with Dry Gauze, Dry Gauze, Secured with Secured with Tape Tape -Nugauze, Iodoform 1/4 1 -Nugauze, Plain Iodoform 1/4 1 Treatment Response Procedure Procedure Tolerated Well Tolerated Well Pain Scale: 0-10 Numeric Is Patient Pain Free? Yes Yes Teaching: Wound Center Dressing Your Wound -Person Taught Patient Patient,Family -Teaching Method Discussion Discussion, Demonstration -Response to teaching Verbalize Verbalize understanding understanding WC - Visit Discharge Discharge Condition Stable Stable Ambulatory Status Ambulatory Ambulatory Transportation Private Auto Private Auto Accompanied by self Medication Reconcilliation completed & No No provided to patient/care provider Clinical Summary of Care Provided Yes Yes Notes: HBO treatment to follow appointment Wound debrided: Left third toe Type of Debridement: Excisional debridement Anesthesia Used: 5% Lidocaine Gel Depth: Down to and including healthy tissue, in the subcutaneous layer and to bone Percentage of wound debrided: 100 Instrument Used: 5mm curette Tissue Removed: Fibrin Severity: Necrosis of Bone Amount of bleeding with debridement: Mild Bleeding Controlled with: Compression and gauze Patient tolerated procedure: Patient tolerated procedure well Assessment/Plan Assessment/Plan (1) Non-pressure chronic ulcer of other part of left foot with necrosis of bone: CODE(S): L97.524 - Non-pressure chronic ulcer of other part of left foot with necrosis of bone (2) Deformity of toe of left foot: CODE(S): M20.62 - Acquired deformities of toe(s), unspecified, left foot (3) Diabetic foot ulcer associated with type 2 diabetes mellitus: CODE(S): E11.621 - Type 2 diabetes mellitus with foot ulcer; L97.509 - Non-pressure chronic ulcer of other part of unspecified foot with unspecified severity QUALIFIERS: Diabetic foot ulcer location: toe Laterality: left Non-pressure ulcer stage: with bone involvement without evidence of necrosis Qualified Code(s): E11.621 - Type 2 diabetes mellitus with foot ulcer; L97.526 - 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 involvement without evidence of necrosis PLAN: Cleanse foot with antibacterial soap pack wound from lateral to posterior with half-inch iodoform gauze cover with gauze and tape every day Follow-up in 1 week Obtained cultures start linezolid 600 mg 2 times a day for 14 days Continue the doxycycline 100 mg twice a day and finish the metronidazole as ordered Continue HBO treatments (4) Non-healing surgical wound: CODE(S): T81.89XA - Other complications of procedures, not elsewhere classified, initial encounter QUALIFIERS: Encounter type: subsequent encounter Qualified Code(s): T81.89XD - Other complications of procedures, not elsewhere classified, subsequent encounter
[2021-06-29 10:51] LABS: Bedside Glucose 178 mg/dL (70-110)
--- NOTE | 2021-06-29 12:28 | PCM.HBO.PN ---
History of Present Illness Date of Service: 06/29/21 Chief Complaint: Non-healing left third toe plantar wound with osteomyelitis History of Wound: This 75-year-old diabetic male patient was seen today as a podiatry consultation for nonhealing left third toe ulcer with suspected osteomyelitis. History of diabetes mellitus and per patient his last A1c was 7.6 percent. He reports compliance with his medication. He denies chills, fever, nausea, vomiting, diarrhea or other illness. Patient is undergoing treatment with advanced wound care as well as hyperbaric oxygen treatment to salvage his left foot. He has been walking in a regular close shoe. His swelling has also decreased. He is with his today. He was also seen by infectious disease specialist, Dr. Berry, today as well. He is interested in proceeding with hyperbaric oxygen therapy if possible. He also brought his offloading cam walker boot for adjustment today. Progress of Wound: Third toe still has connecting open areas of tunneling smaller than was last week clean wounds. Cultures came back positive for 2 bacteria is patient is already on doxycycline but only covers one of the bacteria is we will start linezolid also 600 mg 2 times a day for 14 days. Patient is finishing up his metronidazole also. He is seeing Dr. Whiteside for his infectious disease. Patient is to restart HBO tomorrow has had ear bleeding problems and was cleared by ear nose throat yesterday. Subjective Subjective Today's hyperbaric oxygen therapy session represents the 34th of such session of the planned 60 such sessions. Some bright red drainage noted from his left ear. Patient denied pain or congestion. [place] well. Hyperbaric oxygen therapy was administered as per the facility's protocol.? Hyperbaric oxygen therapy was administered at 2 tulio for 90 minutes with no air breaks.? The patient tolerated hyperbaric oxygen therapy well, without complaints or complications.? Upon emergence from the hyperbaric chamber, the patient's vital signs remained stable.? The patient was discharged in good condition.? Pre-and post?hyperbaric oxygen therapy blood glucose levels were documented elsewhere. Objective Data Objective Data Vital Signs: Vital Signs Temp Pulse Resp BP 96.6 F L 77 18 181/88 H 06/24/21 09:22 06/24/21 09:22 06/24/21 09:22 06/24/21 09:22 Weight: 235 lb Body Mass Index (BMI) 30.6 Lab / Micro Data Labs: Laboratory Results - last 24 hr 06/29/21 10:47: POC Glucose 178 H Micro: Microbiology 06/17/21 09:50 Wound Abcess - Toe Gram Stain - Final 06/17/21 09:50 Wound Abcess - Toe Wound Culture - Final Staphylococcus aureus Staphylococcus epidermidis Gram positive chris 06/17/21 09:50 Wound Abcess - Toe Anaerobic Culture - Final No anaerobic bacteria isolated. Exam Physical Exam Const oriented x3 General Appearance: cooperative HEENT normocephalic Head and Scalp: normal to inspection General Ear: hearing grossly impaired External Ear: external ears normal Tympanic Membrane: other Other Details: Right tympanic membrane intact and normal with slight laceration inside right ear canal, left tympanic membrane with some fairly recent bloody drainage. Eustachian tubes intact bilaterally. Neck full ROM General: normal visual inspection Resp normal respiratory effort Effort and Inspection: able to speak in complete sentences Auscultation: clear to auscultation bilaterally Cardio Negative for regular rate or regular rhythm Neuro oriented x3 Psych Appearance: grossly normal Speech: normal speech Thought Content: normal thought content Assessment/Plan Assessment/Plan (1) Non-pressure chronic ulcer of other part of left foot with necrosis of bone: CODE(S): L97.524 - Non-pressure chronic ulcer of other part of left foot with necrosis of bone (2) Cellulitis of left lower limb: CODE(S): L03.116 - Cellulitis of left lower limb (3) Deformity of toe of left foot: CODE(S): M20.62 - Acquired deformities of toe(s), unspecified, left foot (4) Osteomyelitis, unspecified: CODE(S): M86.9 - Osteomyelitis, unspecified QUALIFIERS: Laterality: left Osteomyelitis location: foot Osteomyelitis type: chronic multifocal Qualified Code(s): M86.372 - Chronic multifocal osteomyelitis, left ankle and foot (5) Nonhealing nonsurgical wound with fat layer exposed: CODE(S): T14.8XXA - Other injury of unspecified body region, initial encounter (6) 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 (7) Diabetic foot ulcer associated with type 2 diabetes mellitus: CODE(S): E11.621 - Type 2 diabetes mellitus with foot ulcer; L97.509 - Non-pressure chronic ulcer of other part of unspecified foot with unspecified severity QUALIFIERS: Diabetic foot ulcer location: toe Laterality: left Non-pressure ulcer stage: with bone involvement without evidence of necrosis Qualified Code(s): E11.621 - Type 2 diabetes mellitus with foot ulcer; L97.526 - 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 involvement without evidence of necrosis (8) Chronic osteomyelitis involving ankle and foot: CODE(S): M86.679 - Other chronic osteomyelitis, unspecified ankle and foot QUALIFIERS: Laterality: left Qualified Code(s): M86.672 - Other chronic osteomyelitis, left ankle and foot
[2021-06-29 12:58] VITALS: BP 150/83; BP 160/62; PULSE 68; PULSE 82; RESP 16; TEMP 36.4
[2021-06-29 13:21] LABS: Bedside Glucose 131 mg/dL (70-110)
[2021-07-01 09:19] VITALS: BP 165/83; PULSE 72; TEMP 36.1; BMI 30.6
--- NOTE | 2021-07-01 09:58 | PN.PCM_ITS ---
History of Present Illness Date of Service: 07/01/21 Chief Complaint: Non-healing left third toe plantar wound with osteomyelitis History of Wound: This 75-year-old diabetic male patient was seen today as a podiatry consultation for nonhealing left third toe ulcer with suspected osteomyelitis. History of diabetes mellitus and per patient his last A1c was 7.6 percent. He reports compliance with his medication. He denies chills, fever, nausea, vomiting, diarrhea or other illness. Patient is undergoing treatment with advanced wound care as well as hyperbaric oxygen treatment to salvage his left foot. He has been walking in a regular close shoe. His swelling has also decreased. He is with his today. He was also seen by infectious disease specialist, Dr. Berry, today as well. He is interested in proceeding with hyperbaric oxygen therapy if possible. He also brought his offloading cam walker boot for adjustment today. Progress of Wound: Third toe still has connecting open areas of tunneling smaller than was last week clean wounds. Today the tunnel is open and small slit on the third toe much improved on antibiotics. No sign of infection clean bleeds easily with debridement. Cultures came back positive for 2 bacteria is patient is already on doxycycline but only covers one of the bacteria is we will start linezolid also 600 mg 2 times a day for 14 days. Patient is finishing up his metronidazole also. He is seeing Dr. Whiteside for his infectious disease. Patient is to restart HBO tomorrow has had ear bleeding problems and was cleared by ear nose throat yesterday. Subjective Subjective Patient has no concerns doing well Objective Data Objective Data Measurements are smaller no sign of infection healing well Vital Signs: Vital Signs Temp Pulse Resp BP 96.9 F L 72 16 165/83 H 07/01/21 09:19 07/01/21 09:19 06/29/21 12:58 07/01/21 09:19 Weight: 235 lb Body Mass Index (BMI) 30.6 Lab / Micro Data Micro: Microbiology 06/17/21 09:50 Wound Abcess - Toe Gram Stain - Final 06/17/21 09:50 Wound Abcess - Toe Wound Culture - Final Staphylococcus aureus Staphylococcus epidermidis Gram positive chris 06/17/21 09:50 Wound Abcess - Toe Anaerobic Culture - Final No anaerobic bacteria isolated. Physical Exam Const oriented x3 General Appearance: cooperative HEENT normocephalic Head and Scalp: normal to inspection General Ear: hearing grossly impaired External Ear: external ears normal Tympanic Membrane: other Other Details: Right tympanic membrane intact and normal with slight laceration inside right ear canal, left tympanic membrane with some fairly recent bloody drainage. Eustachian tubes intact bilaterally. Neck full ROM General: normal visual inspection Resp normal respiratory effort Effort and Inspection: able to speak in complete sentences Auscultation: clear to auscultation bilaterally Cardio Negative for regular rate or regular rhythm Neuro oriented x3 Psych Appearance: grossly normal Speech: normal speech Thought Content: normal thought content Debridement Note Debridement Note Post-Debridement Measurements and Additional Note: Post-Debridement Measuremen ts/Treatment WC - Nurse 1 - General Ulcer Assessment Start: 06/15/21 10:58 Freq: Status: Active Protocol: REMA Activity Type Activity Date Activity User E-Sign Co-Sign Detail Recorded Client Recorded Date Recorded By Document 06/17/21 09:19 AK [id number] 06/17/21 09:29 AK Document 06/24/21 09:22 PL [id number] 06/24/21 09:33 PL Document 07/01/21 09:19 AK [id number] 07/01/21 09:29 AK 06/17/21 06/24/21 07/01/21 09:19 09:22 09:19 - Today's Visit Information Type of service Follow-up Visit Follow-up Visit Follow-up Visit (Physician/TELECOMMUNICATIONS FIELD ENGINEER (Physician/TELECOMMUNICATIONS FIELD ENGINEER (Physician/TELECOMMUNICATIONS FIELD ENGINEER ) ) ) Arrival Mode Ambulatory Ambulatory Ambulatory Transfer Assistance None Patient Identification Verified (Name & Yes Yes Yes ) Patient Requires Transmission-Based No Precautions Safety Precautions NA Finger Stick Blood Sugar(mg/dl) (if 115 indicated): Blood Sugar Stated by Patient Height and Weight Body Mass Index (BMI) 30.6 30.6 30.6 BMI Classification Obese Obese Obese Vital Signs Temperature (97.8 F-99.1 F) 97.7 F L 96.6 F L 96.9 F L Temperature Source Temporal Temporal Temporal Pulse Rate (60-100) 81 77 72 Pulse Location Monitor Respiratory Rate (12-18) 18 Blood Pressure (90/60-120/80) 141/69 H 181/88 H 165/83 H Blood Pressure Mean (mm Hg) 93 119 110 Source Monitor Monitor History Since Last Visit- (Skip if this is Patient's initial visit) Have you changed medications since your No No No last visit? Any new allergies or adverse reactions No No No Had a fall/change in ADL's that may No No No increase risk of falls Signs or symptoms of abuse and/or No No No neglect since last visit Have you been in the hospital since your No No No last visit? Has dressing in place as prescribed Yes Yes Yes Has compression in place as prescribed Yes Yes Yes Has offloadiing in place as prescribed Yes Yes No Experienced any changes in pain level or No No No management Left Footwear Regular Shoe Regular Shoe Right Footwear Regular Shoe Removable Cast Walker/Walking Boot WC - Nurse 1 - General Ulcer Measurement Start: 06/15/21 10:58 Freq: Status: Active Protocol: Activity Type Activity Date Activity User E-Sign Co-Sign Detail Recorded Client Recorded Date Recorded By Document 06/17/21 09:19 AK [id number] 06/17/21 09:29 AK Document 06/24/21 09:22 PL [id number] 06/24/21 09:33 PL Document 07/01/21 09:19 AK [id number] 07/01/21 09:29 AK 06/17/21 06/24/21 07/01/21 09:19 09:22 09:19 Wound Center Nurse 1 #4- L PLANTAR 3RD TOE -Combined with other wound No -Current Size (cm) - Length 0.3 1.9 -Current Size (cm) - Width 1.5 1 -Current Size (cm) - Depth 0.4 0.1 -Total Square Cm 0.45 1.9 -Photo Taken No -Epithelialization Small 1-33% -Tunneling No -Tunneling Position (O'clock) 9 -Tunneling Distance (cm) 1.0 -Undermining/Tunneling No -Circular Undermining No -Exudate Amt Medium Medium None Present -Exudate Type Serosanguineous Serosanguineous -Wound Margin Distinct, Distinct, Outline Outline Attached Attached -Granulation Amt None Present (0 Medium (34-66%) None Present (0 %) %) -Granulation Quality Burden -Slough/Fibrin Yes Yes -Necrosis Amt Small (1-33%) Medium (34-66%) None Present (0 %) -Necrotic Tissue Type Adherent Slough -Structure Exposed N/A -Texture (Angie-wound Skin Appearance) No Abnormality, Localized Edema Assessed,Callus Assessed -Moisture (Angie-wound Skin Appearance) Weeping No Abnormality No Abnormality, Assessed -Color (Angie-wound Skin Appearance) No Abnormality, No Abnormality No Abnormality, Assessed Assessed -Temperature (Angie-wound Skin No Abnormality No Abnormality Appearance) (Pt Warm) (Pt Warm) -Tenderness on Palpation (Angie-wound No No No Skin Appearance) -Ulcer Cleansing Rinsed/ Rinsed/ Rinsed/ Irrigated with Irrigated with Irrigated with Saline Saline Saline -Foul Odor after Cleansing No -Anesthetic Used 5% Lidocaine 5% Lidocaine 5% Lidocaine Gel Gel Gel Right Calf (cm) 36.5 Right Ankle (cm) 24 WC - Nurse 2 - General Ulcer CM Notes Start: 06/15/21 10:58 Freq: Status: Active Protocol: Activity Type Activity Date Activity User E-Sign Co-Sign Detail Recorded Client Recorded Date Recorded By Document 06/17/21 09:48 MW [id number] 06/17/21 09:52 MW Document 06/24/21 09:49 MW [id number] 06/24/21 09:56 MW Document 07/01/21 09:53 PL [id number] 07/01/21 09:54 PL 06/17/21 06/24/21 07/01/21 09:48 09:49 09:53 Wound Center Nurse 2 #4- L PLANTAR 3RD TOE -Time 09:49 09:49 09:34 -Correct Patient Yes Yes Yes -Correct Side, Site, Position Yes Yes Yes -Correct Procedure Yes Yes Yes -Procedure Performed Yes Yes Yes -Type of Procedure Debridement Debridement Debridement -Clinical Debridement Subcutaneous Subcutaneous Subcutaneous -Tissue Removed Subcutaneous Subcutaneous Subcutaneous -Post Debridement (cm) - Length 1.2 0.3 0.5 -Post Debridement (cm) - Width 1.8 1.6 1.0 -Post Debridement (cm) - Depth 1.5 0.6 0.4 -Total Square (Post) (cm) 2.16 0.48 0.50 -Area of Debridement (cm) - Length 1.2 0.3 0.5 -Area of Debridement (cm) - Width 1.8 1.6 1.0 -Total Square (Area) (cm) 2.16 0.48 0.50 -Tunneling No No No -Undermining/Tunneling No No No -Circular Undermining No No No -Wound/Ulcer Outcome Not Healed Not Healed Not Healed -Ulcer Cleansing Rinsed/ Rinsed/ Rinsed/ Irrigated with Irrigated with Irrigated with Saline Saline Saline -Foul Odor after Cleansing No No No -Bioengineered Tissue No No No -Bleeding Controlled with Pressure Pressure -Offloading No No -Treatment Response Procedure Procedure Tolerated Well Tolerated Well -Debridement - Subq, 1st 20sq cm Yes Yes Yes Pain Scale: 0-10 Numeric Is Patient Pain Free? Yes Yes WC - Nurse 3 - General Ulcer D/C NN Start: 06/15/21 10:58 Freq: Status: Active Protocol: Activity Type Activity Date Activity User E-Sign Co-Sign Detail Recorded Client Recorded Date Recorded By Document 06/17/21 09:55 MW [id number] 06/17/21 09:57 MW Document 06/24/21 09:56 MW [id number] 06/24/21 09:57 MW Document 07/01/21 09:47 KR Desktop 07/01/21 09:47 KR 06/17/21 06/24/21 07/01/21 09:55 09:56 09:47 Wound Care Nurse 3 #4- L PLANTAR 3RD TOE -Ulcer Cleansing Rinsed/ Rinsed/ Irrigated with Irrigated with Saline Saline -Foul Odor after Cleansing No No -Negative Pressure Wound Therapy N/A N/A -Primary Dressing Applied Nugauze, Plain Nugauze, Aquacel Extra Iodoform Iodoform -Primary Dressing Covered/Secured with Dry Gauze, Dry Gauze, Dry Gauze,Dry Secured with Secured with Gauze & Roll Tape Tape Gauze,Secured with Tape -Aquacel Extra 1 -Nugauze, Iodoform 1/4 1 -Nugauze, Plain Iodoform 1/4 1 Treatment Response Procedure Procedure Tolerated Well Tolerated Well Pain Scale: 0-10 Numeric Is Patient Pain Free? Yes Yes Yes Teaching: Wound Center Dressing Your Wound -Person Taught Patient Patient,Family -Teaching Method Discussion Discussion, Demonstration -Response to teaching Verbalize Verbalize understanding understanding WC - Visit Discharge Discharge Condition Stable Stable Stable Ambulatory Status Ambulatory Ambulatory Ambulatory Transportation Private Auto Private Auto Private Auto Accompanied by self Medication Reconcilliation completed & No No provided to patient/care provider Clinical Summary of Care Provided Yes Yes Notes: HBO treatment to follow appointment Wound debrided: Left third toe Type of Debridement: Excisional debridement Anesthesia Used: 5% Lidocaine Gel Depth: Down to and including healthy tissue and in the subcutaneous layer Percentage of wound debrided: 100 Instrument Used: 7mm curette Tissue Removed: Fibrin Severity: Necrosis of Bone Amount of bleeding with debridement: Mild Bleeding Controlled with: Compression and gauze Patient tolerated procedure: Patient tolerated procedure well Assessment/Plan Assessment/Plan (1) Non-pressure chronic ulcer of other part of left foot with necrosis of bone: CODE(S): L97.524 - Non-pressure chronic ulcer of other part of left foot with necrosis of bone (2) Deformity of toe of left foot: CODE(S): M20.62 - Acquired deformities of toe(s), unspecified, left foot (3) Diabetic foot ulcer associated with type 2 diabetes mellitus: CODE(S): E11.621 - Type 2 diabetes mellitus with foot ulcer; L97.509 - Non-pressure chronic ulcer of other part of unspecified foot with unspecified severity QUALIFIERS: Diabetic foot ulcer location: toe Laterality: left Non-pressure ulcer stage: with bone involvement without evidence of necrosis Qualified Code(s): E11.621 - Type 2 diabetes mellitus with foot ulcer; L97.526 - 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 involvement without evidence of necrosis PLAN: Cleanse foot with antibacterial soap pack wound from lateral to posterior with Aquacel extra gauze cover with gauze and tape every day Follow-up in 1 week Obtained cultures start linezolid 600 mg 2 times a day for 14 days Continue the doxycycline 100 mg twice a day and finish the metronidazole as ordered Continue HBO treatments (4) Non-healing surgical wound: CODE(S): T81.89XA - Other complications of procedures, not elsewhere classified, initial encounter QUALIFIERS: Encounter type: subsequent encounter Qualified Code(s): T81.89XD - Other complications of procedures, not elsewhere classified, subsequent encounter
[2021-07-06 10:46] LABS: Bedside Glucose 177 mg/dL (70-110)
[2021-07-06 11:06] VITALS: BP 135/73; BP 137/71; PULSE 73; PULSE 76; RESP 16; RESP 17; TEMP 36.4
--- NOTE | 2021-07-06 11:11 | HBO.PN.PCM_ITS ---
History of Present Illness Date of Service: 07/06/21 Chief Complaint: Non-healing left third toe plantar wound with osteomyelitis Subjective Subjective Today's hyperbaric oxygen therapy session represents the 37th of such session of the planned 60 such sessions. Some bright red drainage noted from his left ear. Patient denied pain or congestion. [employer] well. Hyperbaric oxygen therapy was administered as per the facility's protocol.? Hyperbaric oxygen therapy was administered at 2 tulio for 90 minutes with no air breaks.? The patient tolerated hyperbaric oxygen therapy well, without complaints or complications.? Upon emergence from the hyperbaric chamber, the patient's vital signs remained stable.? The patient was discharged in good condition.? Pre-and post?hyperbaric oxygen therapy blood glucose levels were documented elsewhere. Objective Data Objective Data Vital Signs: Vital Signs Temp Pulse Resp BP 96.9 F L 72 16 165/83 H 07/01/21 09:19 07/01/21 09:19 06/29/21 12:58 07/01/21 09:19 Weight: 235 lb Body Mass Index (BMI) 30.6 Lab / Micro Data Labs: Laboratory Results - last 24 hr 07/06/21 10:39: POC Glucose 177 H Micro: Microbiology 06/17/21 09:50 Wound Abcess - Toe Gram Stain - Final 06/17/21 09:50 Wound Abcess - Toe Wound Culture - Final Staphylococcus aureus Staphylococcus epidermidis Gram positive chris 06/17/21 09:50 Wound Abcess - Toe Anaerobic Culture - Final No anaerobic bacteria isolated. Exam Physical Exam Const oriented x3 General Appearance: cooperative HEENT normocephalic Head and Scalp: normal to inspection General Ear: hearing grossly impaired External Ear: external ears normal Tympanic Membrane: other Other Details: Right tympanic membrane intact and normal with slight laceration inside right ear canal, left tympanic membrane with some fairly recent bloody drainage. Eustachian tubes intact bilaterally. Neck full ROM General: normal visual inspection Resp normal respiratory effort Effort and Inspection: able to speak in complete sentences Auscultation: clear to auscultation bilaterally Cardio Negative for regular rate or regular rhythm Neuro oriented x3 Psych Appearance: grossly normal Speech: normal speech Thought Content: normal thought content Assessment/Plan Assessment/Plan (1) Non-pressure chronic ulcer of other part of left foot with necrosis of bone: CODE(S): L97.524 - Non-pressure chronic ulcer of other part of left foot with necrosis of bone (2) Cellulitis of left lower limb: CODE(S): L03.116 - Cellulitis of left lower limb (3) Deformity of toe of left foot: CODE(S): M20.62 - Acquired deformities of toe(s), unspecified, left foot (4) Osteomyelitis, unspecified: CODE(S): M86.9 - Osteomyelitis, unspecified QUALIFIERS: Laterality: left Osteomyelitis location: foot Osteomyelitis type: chronic multifocal Qualified Code(s): M86.372 - Chronic multifocal osteomyelitis, left ankle and foot (5) Nonhealing nonsurgical wound with fat layer exposed: CODE(S): T14.8XXA - Other injury of unspecified body region, initial encounter (6) 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 (7) Diabetic foot ulcer associated with type 2 diabetes mellitus: CODE(S): E11.621 - Type 2 diabetes mellitus with foot ulcer; L97.509 - Non-pressure chronic ulcer of other part of unspecified foot with unspecified severity QUALIFIERS: Diabetic foot ulcer location: toe Laterality: left Non-pressure ulcer stage: with bone involvement without evidence of necrosis Qualified Code(s): E11.621 - Type 2 diabetes mellitus with foot ulcer; L97.526 - 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 involvement without evidence of necrosis (8) Chronic osteomyelitis involving ankle and foot: CODE(S): M86.679 - Other chronic osteomyelitis, unspecified ankle and foot QUALIFIERS: Laterality: left Qualified Code(s): M86.672 - Other chronic osteomyelitis, left ankle and foot PLAN: Is tolerating hyperbaric oxygen therapy well, which will be continued as per his medical plan.
[2021-07-06 12:56] LABS: Bedside Glucose 143 mg/dL (70-110)
[2021-07-08 09:27] VITALS: BP 144/77; PULSE 70; RESP 18; TEMP 36.4; BMI 30.6
--- NOTE | 2021-07-08 12:05 | PCM.WC.PN ---
History of Present Illness Date of Service: 07/08/21 Chief Complaint: Non-healing left third toe plantar wound with osteomyelitis History of Wound: This 75-year-old diabetic male patient was seen today as a podiatry consultation for nonhealing left third toe ulcer with suspected osteomyelitis. History of diabetes mellitus and per patient his last A1c was 7.6 percent. He reports compliance with his medication. He denies chills, fever, nausea, vomiting, diarrhea or other illness. Patient is undergoing treatment with advanced wound care as well as hyperbaric oxygen treatment to salvage his left foot. He has been walking in a regular close shoe. His swelling has also decreased. He is with his today. He was also seen by infectious disease specialist, Dr. Berry, today as well. He is interested in proceeding with hyperbaric oxygen therapy if possible. He also brought his offloading cam walker boot for adjustment today. Progress of Wound: Third toe open wound more like a slit clean no erythema of the toe at all. Today the tunnel is open and small slit on the third toe much improved on antibiotics. No sign of infection clean bleeds easily with debridement. Cultures came back positive for 2 bacteria is patient is already on doxycycline but only covers one of the bacteria is we will start linezolid also 600 mg 2 times a day for 14 days. Patient is finishing up his metronidazole also. He is seeing Dr. Whiteside for his infectious disease. Patient is to restart HBO tomorrow has had ear bleeding problems and was cleared by ear nose throat yesterday. Subjective Subjective Still having issues with ear bleeding on the HBO's. Objective Data Objective Data Wound looks clean bleeds easily depth is better improving Vital Signs: Vital Signs Temp Pulse Resp BP 97.6 F L 70 18 144/77 H 07/08/21 09:27 07/08/21 09:27 07/08/21 09:27 07/08/21 09:27 Oxygen Delivery Method Room Air Weight: 235 lb Body Mass Index (BMI) 30.6 Lab / Micro Data Micro: Microbiology 06/17/21 09:50 Wound Abcess - Toe Gram Stain - Final 06/17/21 09:50 Wound Abcess - Toe Wound Culture - Final Staphylococcus aureus Staphylococcus epidermidis Gram positive chris 06/17/21 09:50 Wound Abcess - Toe Anaerobic Culture - Final No anaerobic bacteria isolated. Physical Exam Const oriented x3 General Appearance: cooperative HEENT normocephalic Head and Scalp: normal to inspection General Ear: hearing grossly impaired External Ear: external ears normal Tympanic Membrane: other Other Details: Right tympanic membrane intact and normal with slight laceration inside right ear canal, left tympanic membrane with some fairly recent bloody drainage. Eustachian tubes intact bilaterally. Neck full ROM General: normal visual inspection Resp normal respiratory effort Effort and Inspection: able to speak in complete sentences Auscultation: clear to auscultation bilaterally Cardio Negative for regular rate or regular rhythm Neuro oriented x3 Psych Appearance: grossly normal Speech: normal speech Thought Content: normal thought content Debridement Note Debridement Note Post-Debridement Measurements and Additional Note: Post-Debridement Measurements/Treatment - Nurse 1 - General Ulcer Assessment Start: 06/15/21 10:58 Freq: Status: Active Protocol: REMA Activity Type Activity Date Activity User E-Sign Co-Sign Detail Recorded Client Recorded Date Recorded By Document 06/17/21 09:19 AK [id number] 06/17/21 09:29 AK Document 06/24/21 09:22 PL [id number] 06/24/21 09:33 PL Document 07/01/21 09:19 AK [id number] 07/01/21 09:29 AK Document 07/08/21 09:27 AK [id number] 07/08/21 09:32 AK 06/17/21 06/24/21 07/01/21 09:19 09:22 09:19 - Today's Visit Information Type of service Follow-up Visit Follow-up Visit Follow-up Visit (Physician/PROGRAM ARRANGER (Physician/PROGRAM ARRANGER (Physician/PROGRAM ARRANGER ) ) ) Arrival Mode Ambulatory Ambulatory Ambulatory Transfer Assistance None Accompanied by Patient Identification Verified (Name & Yes Yes Yes ) Patient Requires Transmission-Based No Precautions Safety Precautions NA Finger Stick Blood Sugar(mg/dl) (if 115 indicated): Blood Sugar Stated by Patient Height and Weight Body Mass Index (BMI) 30.6 30.6 30.6 BMI Classification Obese Obese Obese Vital Signs Temperature (97.8 F-99.1 F) 97.7 F L 96.6 F L 96.9 F L Temperature Source Temporal Temporal Temporal Pulse Rate (60-100) 81 77 72 Pulse Location Monitor Respiratory Rate (12-18) 18 Respiratory rate source Oxygen Delivery Method Blood Pressure (90/60-120/80) 141/69 H 181/88 H 165/83 H Blood Pressure Mean (mm Hg) 93 119 110 Source Monitor Monitor Position Blood Pressure Location History Since Last Visit- (Skip if this is Patient's initial visit) Have you changed medications since your No No No last visit? Any new allergies or adverse reactions No No No Had a fall/change in ADL's that may No No No increase risk of falls Signs or symptoms of abuse and/or No No No neglect since last visit Have you been in the hospital since your No No No last visit? Has dressing in place as prescribed Yes Yes Yes Has compression in place as prescribed Yes Yes Yes Has offloadiing in place as prescribed Yes Yes No Experienced any changes in pain level or No No No management Left Footwear Regular Shoe Regular Shoe Right Footwear Regular Shoe Removable Cast Walker/Walking Boot 07/08/21 09:27 WC - Today's Visit Information Type of service Follow-up Visit (Physician/PROGRAM ARRANGER ) Arrival Mode Ambulatory Transfer Assistance Accompanied by self Patient Identification Verified (Name & ) Patient Requires Transmission-Based Precautions Safety Precautions Finger Stick Blood Sugar(mg/dl) (if indicated): Blood Sugar Height and Weight Body Mass Index (BMI) 30.6 BMI Classification Obese Vital Signs Temperature (97.8 F-99.1 F) 97.6 F L Temperature Source Temporal Pulse Rate (60-100) 70 Pulse Location Monitor Respiratory Rate (12-18) 18 Respiratory rate source Observation Oxygen Delivery Method Room Air Blood Pressure (90/60-120/80) 144/77 H Blood Pressure Mean (mm Hg) 99 Source Monitor Position Sitting Blood Pressure Location Left Arm History Since Last Visit- (Skip if this is Patient's initial visit) Have you changed medications since your last visit? Any new allergies or adverse reactions Had a fall/change in ADL's that may increase risk of falls Signs or symptoms of abuse and/or neglect since last visit Have you been in the hospital since your last visit? Has dressing in place as prescribed Has compression in place as prescribed Has offloadiing in place as prescribed Experienced any changes in pain level or management Left Footwear Right Footwear - Nurse 1 - General Ulcer Measurement Start: 06/15/21 10:58 Freq: Status: Active Protocol: Activity Type Activity Date Activity User E-Sign Co-Sign Detail Recorded Client Recorded Date Recorded By Document 06/17/21 09:19 AK [id number] 06/17/21 09:29 AK Document 06/24/21 09:22 PL [id number] 06/24/21 09:33 PL Document 07/01/21 09:19 AK [id number] 07/01/21 09:29 AK Document 07/08/21 09:27 AK [id number] 07/08/21 09:32 AK 06/17/21 06/24/21 07/01/21 09:19 09:22 09:19 Wound Center Nurse 1 #4- L PLANTAR 3RD TOE -Combined with other wound No -Current Size (cm) - Length 0.3 1.9 -Current Size (cm) - Width 1.5 1 -Current Size (cm) - Depth 0.4 0.1 -Total Square Cm 0.45 1.9 -Photo Taken No -Epithelialization Small 1-33% -Tunneling No -Tunneling Position (O'clock) 9 -Tunneling Distance (cm) 1.0 -Undermining/Tunneling No -Circular Undermining No -Exudate Amt Medium Medium None Present -Exudate Type Serosanguineous Serosanguineous -Wound Margin Distinct, Distinct, Outline Outline Attached Attached -Granulation Amt None Present (0 Medium (34-66%) None Present (0 %) %) -Granulation Quality Ballard -Slough/Fibrin Yes Yes -Necrosis Amt Small (1-33%) Medium (34-66%) None Present (0 %) -Necrotic Tissue Type Adherent Slough -Structure Exposed N/A -Texture (Angie-wound Skin Appearance) No Abnormality, Localized Edema Assessed,Callus Assessed -Moisture (Angie-wound Skin Appearance) Weeping No Abnormality No Abnormality, Assessed -Color (Angie-wound Skin Appearance) No Abnormality, No Abnormality No Abnormality, Assessed Assessed -Temperature (Angie-wound Skin No Abnormality No Abnormality Appearance) (Pt Warm) (Pt Warm) -Tenderness on Palpation (Angie-wound No No No Skin Appearance) -Ulcer Cleansing Rinsed/ Rinsed/ Rinsed/ Irrigated with Irrigated with Irrigated with Saline Saline Saline -Foul Odor after Cleansing No -Anesthetic Used 5% Lidocaine 5% Lidocaine 5% Lidocaine Gel Gel Gel Right Calf (cm) 36.5 Right Ankle (cm) 24 07/08/21 09:27 Wound Center Nurse 1 #4- L PLANTAR 3RD TOE -Combined with other wound -Current Size (cm) - Length 1.5 -Current Size (cm) - Width 0.1 -Current Size (cm) - Depth 0.2 -Total Square Cm 0.15 -Photo Taken -Epithelialization -Tunneling -Tunneling Position (O'clock) -Tunneling Distance (cm) -Undermining/Tunneling -Circular Undermining -Exudate Amt None Present -Exudate Type -Wound Margin Thickened & Rolled Under -Granulation Amt Large (67-100%) -Granulation Quality Pale -Slough/Fibrin No -Necrosis Amt -Necrotic Tissue Type -Structure Exposed -Texture (Angie-wound Skin Appearance) Assessed -Moisture (Angie-wound Skin Appearance) Assessed -Color (Angie-wound Skin Appearance) Assessed -Temperature (Angie-wound Skin No Abnormality Appearance) (Pt Warm) -Tenderness on Palpation (Angie-wound No Skin Appearance) -Ulcer Cleansing Rinsed/ Irrigated with Saline -Foul Odor after Cleansing No -Anesthetic Used 4% Lidocaine Solution Right Calf (cm) 33 Right Ankle (cm) 24 WC - Nurse 2 - General Ulcer CM Notes Start: 06/15/21 10:58 Freq: Status: Active Protocol: Activity Type Activity Date Activity User E-Sign Co-Sign Detail Recorded Client Recorded Date Recorded By Document 06/17/21 09:48 MW [id number] 06/17/21 09:52 MW Document 06/24/21 09:49 MW [id number] 06/24/21 09:56 MW Document 07/01/21 09:53 PL [id number] 07/01/21 09:54 PL Document 07/08/21 09:46 MW [id number] 07/08/21 09:46 MW 06/17/21 06/24/21 07/01/21 09:48 09:49 09:53 Wound Center Nurse 2 #4- L PLANTAR 3RD TOE -Time 09:49 09:49 09:34 -Correct Patient Yes Yes Yes -Correct Side, Site, Position Yes Yes Yes -Correct Procedure Yes Yes Yes -Procedure Performed Yes Yes Yes -Type of Procedure Debridement Debridement Debridement -Clinical Debridement Subcutaneous Subcutaneous Subcutaneous -Tissue Removed Subcutaneous Subcutaneous Subcutaneous -Post Debridement (cm) - Length 1.2 0.3 0.5 -Post Debridement (cm) - Width 1.8 1.6 1.0 -Post Debridement (cm) - Depth 1.5 0.6 0.4 -Total Square (Post) (cm) 2.16 0.48 0.50 -Area of Debridement (cm) - Length 1.2 0.3 0.5 -Area of Debridement (cm) - Width 1.8 1.6 1.0 -Total Square (Area) (cm) 2.16 0.48 0.50 -Tunneling No No No -Undermining/Tunneling No No No -Circular Undermining No No No -Wound/Ulcer Outcome Not Healed Not Healed Not Healed -Ulcer Cleansing Rinsed/ Rinsed/ Rinsed/ Irrigated with Irrigated with Irrigated with Saline Saline Saline -Foul Odor after Cleansing No No No -Bioengineered Tissue No No No -Bleeding Controlled with Pressure Pressure -Offloading No No -Treatment Response Procedure Procedure Tolerated Well Tolerated Well -Debridement - Subq, 1st 20sq cm Yes Yes Yes Pain Scale: 0-10 Numeric Is Patient Pain Free? Yes Yes 07/08/21 09:46 Wound Center Nurse 2 #4- L PLANTAR 3RD TOE -Time 09:46 -Correct Patient Yes -Correct Side, Site, Position Yes -Correct Procedure Yes -Procedure Performed Yes -Type of Procedure Debridement -Clinical Debridement Subcutaneous -Tissue Removed Subcutaneous -Post Debridement (cm) - Length 0.5 -Post Debridement (cm) - Width 1.0 -Post Debridement (cm) - Depth 0.3 -Total Square (Post) (cm) 0.50 -Area of Debridement (cm) - Length 0.5 -Area of Debridement (cm) - Width 1.0 -Total Square (Area) (cm) 0.50 -Tunneling No -Undermining/Tunneling No -Circular Undermining No -Wound/Ulcer Outcome Not Healed -Ulcer Cleansing Rinsed/ Irrigated with Saline -Foul Odor after Cleansing No -Bioengineered Tissue No -Bleeding Controlled with Pressure -Offloading No -Treatment Response Procedure Tolerated Well -Debridement - Subq, 1st 20sq cm Yes Pain Scale: 0-10 Numeric Is Patient Pain Free? Yes - Nurse 3 - General Ulcer D/C NN Start: 06/15/21 10:58 Freq: Status: Active Protocol: Activity Type Activity Date Activity User E-Sign Co-Sign Detail Recorded Client Recorded Date Recorded By Document 06/17/21 09:55 MW [id number] 06/17/21 09:57 MW Document 06/24/21 09:56 MW [id number] 06/24/21 09:57 MW Document 07/01/21 09:47 KR Desktop 07/01/21 09:47 KR Document 07/08/21 09:57 ML [id number] 07/08/21 09:57 ML 06/17/21 06/24/21 07/01/21 09:55 09:56 09:47 Wound Care Nurse 3 #4- L PLANTAR 3RD TOE -Ulcer Cleansing Rinsed/ Rinsed/ Irrigated with Irrigated with Saline Saline -Foul Odor after Cleansing No No -Negative Pressure Wound Therapy N/A N/A -Primary Dressing Applied Nugauze, Plain Nugauze, Aquacel Extra Iodoform Iodoform -Primary Dressing Covered/Secured with Dry Gauze, Dry Gauze, Dry Gauze,Dry Secured with Secured with Gauze & Roll Tape Tape Gauze,Secured with Tape -Aquacel Extra 1 -Nugauze, Iodoform 1/4 1 -Nugauze, Plain Iodoform 1/4 1 Treatment Response Procedure Procedure Tolerated Well Tolerated Well Pain Scale: 0-10 Numeric Is Patient Pain Free? Yes Yes Yes Teaching: Wound Center Dressing Your Wound -Person Taught Patient Patient,Family -Teaching Method Discussion Discussion, Demonstration -Response to teaching Verbalize Verbalize understanding understanding WC - Visit Discharge Discharge Condition Stable Stable Stable Ambulatory Status Ambulatory Ambulatory Ambulatory Transportation Private Auto Private Auto Private Auto Accompanied by self Medication Reconcilliation completed & No No provided to patient/care provider Clinical Summary of Care Provided Yes Yes Notes: HBO treatment to follow appointment 07/08/21 09:57 Wound Care Nurse 3 #4- L PLANTAR 3RD TOE -Ulcer Cleansing Rinsed/ Irrigated with Saline -Foul Odor after Cleansing No -Negative Pressure Wound Therapy -Primary Dressing Applied Aquacel Extra -Primary Dressing Covered/Secured with Dry Gauze & Roll Gauze, Secured with Tape -Aquacel Extra 1 -Nugauze, Iodoform 1/4 -Nugauze, Plain Iodoform 1/4 Treatment Response Pain Scale: 0-10 Numeric Is Patient Pain Free? Teaching: Wound Center Dressing Your Wound -Person Taught -Teaching Method -Response to teaching WC - Visit Discharge Discharge Condition Stable Ambulatory Status Ambulatory Transportation Private Auto Accompanied by Medication Reconcilliation completed & No provided to patient/care provider Clinical Summary of Care Provided Yes Notes: Wound debrided: Left third toe Type of Debridement: Selective debridement Anesthesia Used: 5% Lidocaine Gel Depth: Down to and including healthy tissue and in the subcutaneous layer Percentage of wound debrided: 100 Instrument Used: 5mm curette Tissue Removed: Fibrin Severity: Fat Layer Exposed Amount of bleeding with debridement: Mild Bleeding Controlled with: Compression and gauze Patient tolerated procedure: Patient tolerated procedure well Assessment/Plan Assessment/Plan (1) Non-pressure chronic ulcer of other part of left foot with necrosis of bone: CODE(S): L97.524 - Non-pressure chronic ulcer of other part of left foot with necrosis of bone (2) Deformity of toe of left foot: CODE(S): M20.62 - Acquired deformities of toe(s), unspecified, left foot (3) Diabetic foot ulcer associated with type 2 diabetes mellitus: CODE(S): E11.621 - Type 2 diabetes mellitus with foot ulcer; L97.509 - Non-pressure chronic ulcer of other part of unspecified foot with unspecified severity QUALIFIERS: Diabetic foot ulcer location: toe Laterality: left Non-pressure ulcer stage: with bone involvement without evidence of necrosis Qualified Code(s): E11.621 - Type 2 diabetes mellitus with foot ulcer; L97.526 - 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 involvement without evidence of necrosis PLAN: Cleanse foot with antibacterial soap pack wound from lateral to posterior with Aquacel extra gauze cover with gauze and tape every day Follow-up in 1 week Obtained cultures start linezolid 600 mg 2 times a day for 14 days Continue HBO treatments as tolerates (4) Non-healing surgical wound: CODE(S): T81.89XA - Other complications of procedures, not elsewhere classified, initial encounter QUALIFIERS: Encounter type: subsequent encounter Qualified Code(s): T81.89XD - Other complications of procedures, not elsewhere classified, subsequent encounter
== END 2021-07-14 23:59 ==
LOC: WC 09:15
PROVIDERS: PCP Family Medicine; Referring Provider Podiatrist Foot & Ankle Surgery; Visit Provider Nurse Practitioner
DX: E11.621 Type 2 diabetes mellitus with foot ulcer (principal); L97.524 Non-pressure chronic ulcer of other part of left foot with necrosis of bone; T81.89XD Other complications of procedures, not elsewhere classified, subsequent encounter; M20.62 Acquired deformities of toe(s), unspecified, left foot; L97.526 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 involvement without evidence of necrosis; M86.372 Chronic multifocal osteomyelitis, left ankle and foot; L03.116 Cellulitis of left lower limb
CPT/HCPCS: 11042; 82962; 87186; 99183; G0277

== ENCOUNTER 2021-07-20 18:44 | Emergency (ER) | payer MEDICARE, OTHER, SELFPAY ==
[2021-07-20 18:45] VITALS: BP 168/99; PULSE 78; RESP 16; TEMP 36.6; O2SAT 99; BMI 32.0
--- NOTE | 2021-07-20 20:03 | EDS_ITS ---
HPI HPI - GI History of Present Illness Chief Complaint: Constipation Informant: patient and spouse/S.O. Narrative Narrative: 76-year-old male presents the emergency department with 3 weeks of intermittent constipation and now experiencing bloating and nausea and vomiting. Patient admits to having flatus. No fevers. He notes a prior inguinal hernia repair but no other abdominal surgeries. He did have a small bowel movement yesterday. He has a history of diabetes. He has had multiple surgeries for amputations of the feet. [facility] Medical History Acute osteomyelitis involving ankle and foot Arthritis Body mass index 31.0-31.9, adult Cellulitis Chronic osteomyelitis involving ankle and foot Diabetes mellitus Ectopic atrial tachycardia Essential hypertension Hyperlipidemia Hypertension Long-term use of high-risk medication Methicillin susceptible Staphylococcus aureus infection Nonhealing nonsurgical wound with fat layer exposed RAJESH (obstructive sleep apnea) Paroxysmal ventricular tachycardia Premature atrial contractions Premature ventricular contraction Psoriasis Secondary pulmonary arterial hypertension Shortness of breath Supraventricular tachycardia Home Medications finasteride 5 mg PO DAILY 02/03/16 [History Last Taken Unknown] metformin 1,000 mg PO BIDCM 02/03/16 [History Last Taken Unknown] tamsulosin 0.4 mg PO QHS 02/03/16 [History Last Taken Unknown] bimatoprost 1 drp EACH EYE DAILY 06/30/18 [History Last Taken Unknown] fluticasone propionate 2 spray NASAL DAILY PRN 06/30/18 [History Last Taken Unknown] methotrexate sodium 7.5 mg PO Q7D 06/30/18 [History Last Taken Unknown] pyridoxine (vitamin B6) 100 mg PO QHS 06/30/18 [History Last Taken Unknown] multivitamin with folic acid 1 tab PO DAILY 10/20/18 [History Last Taken Unknown] oxybutynin chloride 5 mg PO QHS 10/20/18 [History Last Taken Unknown] timolol maleate 1 drp EACH EYE BID 10/20/18 [History Last Taken 09/26/20 07:30] fexofenadine 180 mg tablet 180 mg PO DAILY 06/01/19 [History Last Taken Unknown] folic acid 1 mg tablet 4 mg PO DAILY 06/01/19 [History Last Taken Unknown] glucosamine HCl 1,500 mg tablet 1,500 mg PO BID tab 02/20/20 [History Last Taken Unknown] vit C 250 mg-vit E 90 mg-zinc 40 mg-copper 1 [id number] capsule 1 cap PO DAILY 02/20/20 [History Last Taken Unknown] glipizide 10 mg tablet 10 mg PO DAILY tab 05/30/20 [History Last Taken Unknown] infliximab-dyyb 100 mg intravenous solution mg IV [id number] ea 05/30/20 [History Last Taken 08/15/20] naproxen sodium 220 mg PO PRN PRN 09/24/20 [History Last Taken Unknown] cyanocobalamin (vitamin B-12) 100 mcg tablet 500 mcg PO DAILY tab 12/01/20 [History Last Taken Unknown] ranitidine HCl 150 mg tablet mg PO 12/01/20 [History Last Taken Unknown] hydrochlorothiazide 25 mg tablet 25 mg PO DAILY #90 tab 03/30/21 [Rx Last Taken Unknown] lisinopril 40 mg tablet 40 mg PO DAILY #90 tab 03/30/21 [Rx Last Taken Unknown] metoprolol succinate 100 mg tablet,extended release 24 hr 100 mg PO BID #180 tab 03/30/21 [Rx Last Taken Unknown] potassium chloride 20 mEq tablet,extended release(part/cryst) 20 meq PO DAILY #90 tab 03/30/21 [Rx Last Taken Unknown] pravastatin 40 mg tablet 40 mg PO QHS #90 tab 03/30/21 [Rx Last Taken Unknown] doxycycline hyclate 100 mg PO BID 05/05/21 [History Last Taken 05/05/21] magnesium citrate 300 ml PO DAILY PRN #600 ml 07/20/21 [Rx Last Taken Unknown] ondansetron 4 mg PO Q6H PRN PRN #15 tab 07/20/21 [Rx Last Taken Unknown] Allergy/AdvReac Type Severity Reaction Status Date / Time cephalexin [From Keflex] Allergy Severe rash Verified 07/20/21 19:07 sulfamethoxazole Allergy Severe Rash Verified 07/20/21 19:07 [From Bactrim] trimethoprim [From Bactrim] Allergy Severe Rash Verified 07/20/21 19:07 levofloxacin [From Levaquin] AdvReac Other Verified 07/20/21 19:07 Penicillins AdvReac Unknown Verified 07/20/21 19:07 Family History Father Cancer Prostate Mother Depression Surgical History excision of skin cancer History of foot surgery History of hammer toe correction (09/26/20) History of hernia repair History of partial amputation of toe History of tonsillectomy and adenoidectomy Social History Smoking Status: Former smoker pack-years: 30 alcohol intake: current alcohol intake frequency: holidays/special occasions only substance use type: does not use caffeine: Yes Type: coffee Number of servings: 3 what type of physical activity do you participate in: running and weight training frequency: 1-2 times per week ROS ROS ED Constitutional Constitutional ED: Denies chills or weight loss Eyes Eyes: Denies change in vision or diplopia ENT ENT ED: Denies ear pain, rhinorrhea or sore throat Cardiovascular Cardiovascular: Denies chest pain, orthopnea, palpitations or racing heartbeat Respiratory/Chest Respiratory/Chest: Denies cough, dyspnea or orthopnea Gastrointestinal Gastrointestinal: Reports abdominal pain, constipation, nausea and vomiting; Denies diarrhea Genitourinary Genitourinary ED: Denies dysuria, hematuria or urinary frequency Musculoskeletal Musculoskeletal: Denies arthralgias or myalgias Integumentary Denies abscess or rash Neurologic Neurologic: Denies headache(s) or weakness Psychiatric Psychiatric: Denies anxiety, depression, suicidal ideation or suicidal thoughts Endocrine Endocrinology: Denies polydipsia, polyphagia or polyuria Allergic/Immunologic Allergic/Immunologic ED: Denies mouth swelling, tongue swelling or urticaria EXAM Physical Exam Const Vital Signs: 07/20/21 18:45 Temperature 97.8 F Temperature Source Temporal Pulse Rate 78 Respiratory Rate 16 Blood Pressure 168/99 H Blood Pressure Mean 122 Pulse Ox 99 Oxygen Delivery Method Room Air Positive well nourished and well developed General Appearance ED: well developed HEENT Reports normocephalic, head/scalp atraumatic and moist mucous membranes Eyes PERRL and EOMs intact bilaterally Neck no lymphadenopathy, supple and no JVD Resp normal respiratory effort and clear to auscultation bilaterally Cardio regular rate, regular rhythm and no murmurs GI normal to inspection, nondistended, normoactive bowel sounds and non-tender Inspection: Negative for abdominal distention Auscultation: normoactive bowel sounds Palpation: soft; Negative for tender, guarding or rebound tenderness present Back/Spine no CVA tenderness and normal ROM Extremity normal to inspection General Extremety ED: Negative for edema General Extremity: Negative for edema Neuro oriented x3 and CN's II-XII intact bilaterally Sensorium / Orientation: alert Motor Exam: strength 5/5 throughout Psych mental status grossly normal Mood & Affect: Negative for depressed or tearful Skin no rashes or lesions noted and no wounds MDM MDM MDM Narrative Medical decision making narrative: Basic blood work was negative. CT of the abdomen pelvis demonstrates a stool-filled colon but no obstructive pattern no fecal impaction. No acute or active process noted. All right for the patient to have some Zofran. We will try a couple bottles of magnesium citrate. Follow-up with primary care if not improving return if worsening or concerns Lab Data Attestation: I reviewed the patient's lab results. Labs: Laboratory Results - last 24 hr 07/20/21 07/20/21 20:15 20:15 WBC 5.3 RBC 4.52 L Hgb 14.0 Hct 41.2 MCV 91.2 MCH 31.0 MCHC 34.0 RDW Std Deviation 43.4 RDW Coeff of Jaimee 13.4 Plt Count 197 MPV 10.8 Immature Gran % (Auto) 0.200 Neut % (Auto) 55.0 Lymph % (Auto) 29.9 Maverick % (Auto) 8.7 Eos % (Auto) 5.8 H Baso % (Auto) 0.4 Absolute Neuts (auto) 2.9 Absolute Lymphs (auto) 1.59 Nucleated RBC % 0 Sodium 142 Potassium 4.0 Chloride 108 H Carbon Dioxide 25.0 Anion Gap 9 BUN 27 H Creatinine 1.15 Estim Creat Clear Calc 58.11 Est GFR (MDRD) Af Amer 79 Est GFR (MDRD) Non-Af 65 BUN/Creatinine Ratio 23.5 H Glucose 118 H Calcium 9.1 Total Bilirubin 0.60 AST 48 H ALT 71 H Alkaline Phosphatase 60 Total Protein 6.9 Albumin 3.4 Globulin 3.5 Albumin/Globulin Ratio 1.0 Lipase 110 Radiography Diagnostic Testing: Radiology Impression Abdomen/Pelvis CT 07/20/21 20:38 IMPRESSION: 1. No demonstrated acute or active process of the abdomen and pelvis. 2. Stool-filled colon. Electronically Signed: Cal Deleon MD at 21:56 EDT , Service support , Discharge Plan Triage Chief Complaint: Constipation ED Provider: Manan Hobbs Dx/Rx/DC Orders Clinical Impression: Constipation, Nausea & vomiting Instructions: ED Constipation (Adult) Prescriptions: New ondansetron [ondansetron] 4 MG tablet 4 mg PO Q6H PRN PRN (Reason: Nausea) Qty: 15 RF: 0 magnesium citrate Solution 300 ml PO DAILY PRN (Reason: constipation) Qty: 600 RF: 0 No Action Inflectra 100 mg recon soln IV [id number] RF: 0 glucosamine HCl 1,500 mg tablet 1,500 mg PO BID RF: 0 cyanocobalamin (vitamin B-12) 100 mcg tablet 500 mcg PO DAILY RF: 0 glipizide 10 mg tablet 10 mg PO DAILY RF: 0 ranitidine HCl 150 mg tablet PO RF: 0 tamsulosin 0.4 MG capsule 0.4 mg PO QHS RF: 0 metformin 1,000 MG tablet 1,000 mg PO BIDCM RF: 0 finasteride 5 MG tablet 5 mg PO DAILY RF: 0 vit C,I-Yu-eclgj-lutein-zeaxan [id number] bt-qqoc-nr-mg capsule 1 cap PO DAILY RF: 0 methotrexate sodium 2.5 MG tablet 7.5 mg PO Q7D RF: 0 pyridoxine (vitamin B6) 50 MG tablet 100 mg PO QHS RF: 0 fluticasone propionate 1 SPRAY spray,suspension 2 spray NASAL DAILY PRN (Reason: Nasal Congestion) RF: 0 bimatoprost 1 DROP drops 1 drp EACH EYE DAILY RF: 0 fexofenadine 180 mg tablet 180 mg PO DAILY RF: 0 folic acid 1 mg tablet 4 mg PO DAILY RF: 0 oxybutynin chloride 5 MG tablet 5 mg PO QHS RF: 0 timolol maleate 1 DROP drops 1 drp EACH EYE BID RF: 0 multivitamin with folic acid 1 TABLET tablet 1 tab PO DAILY RF: 0 naproxen sodium 220 MG capsule 220 mg PO PRN PRN (Reason: Pain 1-10 Or Fever) RF: 0 doxycycline hyclate 100 mg Capsule 100 mg PO BID RF: 0 lisinopril 40 mg tablet 40 mg PO DAILY Qty: 90 RF: 3 metoprolol succinate 100 mg tablet extended release 24 hr 100 mg PO BID Qty: 180 RF: 3 potassium chloride 20 mEq tablet,ER particles/crystals 20 meq PO DAILY Qty: 90 RF: 3 pravastatin 40 mg tablet 40 mg PO QHS Qty: 90 RF: 3 hydrochlorothiazide 25 mg tablet 25 mg PO DAILY Qty: 90 RF: 3 Primary Care Provider: Jose Turner Referrals: Jose Turner MD [Primary Care Provider] - 3-5 Days if not improving Disposition Disposition: Home, Self Care
[2021-07-20] MEDS: Ondansetron 4 MG/2 ML Vial IV (20:13)
[2021-07-20] MEDS: 0.9% Normal Saline 1,000 ML 1000 ML IV (20:14)
[2021-07-20 20:19] LABS: Absolute Lymphocyte Count 1.59 X10^3/uL (0.83-4.51); Absolute Neutrophil Count 2.9 X10^3/uL (2.0-7.7); Basophil# 0.02 X10^3/uL; Basophil% 0.4 % (0-1); Eosinophil# 0.31 X10^3/uL; Eosinophils% 5.8 % (0-5); Hematocrit 41.2 % (40-54); Lymphocyte # 1.59 X10^3/ul (0.83-4.51); Lymphocyte % 29.9 % (19-41); Mean Corpuscular Volume 91.2 fL (80-94); Mean Platelet Vol. 10.8 fl (6.2-12.0); Monocyte# 0.46 X10^3/uL; Monocyte% 8.7 % (0-10); NRBC Flagged by Analyzer 0 % (0-5); Neutrophil # 2.92 X10^3/uL (2.7-7.7); Platelet Count 197 K/mm3 (150-450); RBC Distribution Width CV 13.4 % (11.6-14.6); RBC Distribution Width SD 43.4 fl (35.1-43.9); Red Blood Count 4.52 M/mm3 (4.6-6.2); White Blood Count 5.3 K/mm3 (4.4-11.0)
[2021-07-20 20:36] LABS: AST(SGOT) 48 U/L (15-37); Alanine Aminotransfer ALT/SGPT 71 U/L (16-61); Albumin, Serum 3.4 g/dL (3.2-5.0); Alkaline Phosphatase 60 U/L (45-117); Anion Gap 9 (5-15); BUN 27 mg/dL (7-18); BUN/Creat Ratio 23.5 RATIO (10-20); Calcium,Total 9.1 mg/dL (8.5-10.1); Chloride 108 mmol/L (98-107); Creatinine, Serum 1.15 mg/dL (0.70-1.30); EST Glomerular Filtration Rate 65 mL/min (>60); Est Glom Filt Rate - Afr Amer 79 mL/min (>60); Estimated Creatinine Clearance 58.11 ml/min; Globulin 3.5 g/dL (2.2-4.2); Glucose 118 mg/dL (74-106); Lipase 110 U/L (73-393); Protein, Total 6.9 g/dL (6.4-8.2); Sodium Level 142 mmol/L (136-145)
--- NOTE | 2021-07-20 20:38 | CT_ITS ---
STUDY: CT ABDOMEN AND PELVIS WITH CONTRAST REASON FOR EXAM: Male, 76 years old. CONSTIPATION,BLOATING,NAUSEA AND VOMITING X 2-3 WEEKS HX:HTN,DIABETES,HLD,OSTEOMYELITIS,PROSTATE AND SKIN CANCER PRIOR HERNIA REPAIR,HAS RADIATION SEEDS RADIATION DOSAGE (If Supplied By Facility): CTDIvol = ( 16.50 ) mGy, DLP = ( 1059.34 ) mGycm TECHNIQUE: Transaxial images were obtained from the dome of the diaphragm to the symphysis pubis without oral contrast. IV 100mL Isovue-300 was administered. Sagittal and coronal images were reconstructed. Individualized dose optimization techniques were used for this CT. COMPARISON: None. FINDINGS: Mild interstitial scarring is present in the medial aspect of the right lower lobe. Normal liver. Tiny punctate calcification seen in the posterior aspect of the right lobe of the liver. Normal gallbladder and extrahepatic biliary system. Normal spleen. Normal pancreas. Normal bilateral adrenal glands. Normal right kidney. Small simple cyst seen in the anterior aspect of the midpole of left kidney which does not require any additional imaging. Otherwise normal left kidney. Normal visualized stomach. Normal small intestine. Normal colon. The appendix is visualized and appears normal. The proximal to descending colonic regions are stool filled but not distended. Normal abdominal aorta. Normal inferior vena cava. Normal retroperitoneum. Normal urinary bladder. Numerous prostate brachytherapy seeds are present. Normal abdominal wall. There are diffuse degenerative changes of the visualized lumbar spine. CT/Abdomen/Pelvis W IV Cont ONLY IMPRESSION: 1. No demonstrated acute or active process of the abdomen and pelvis. 2. Stool-filled colon. Electronically Signed: Cal Deleon MD at 21:56 EDT , Service support ,
[2021-07-20 22:29] VITALS: BP 173/82; PULSE 78; RESP 19; O2SAT 97
== END 2021-07-20 22:35 | disposition home or self-care (01) ==
PROVIDERS: Emergency Provider Emergency Medicine; PCP Family Medicine
DX: K59.00 Constipation, unspecified (principal); R11.2 Nausea with vomiting, unspecified; M19.90 Unspecified osteoarthritis, unspecified site; E11.9 Type 2 diabetes mellitus without complications; I10 Essential (primary) hypertension; E78.5 Hyperlipidemia, unspecified; Z79.84 Long term (current) use of oral hypoglycemic drugs; Z79.899 Other long term (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; Z87.891 Personal history of nicotine dependence
CPT/HCPCS: 74177; 80053; 83690; 85025; 96361; 96374; 99282; J7030; Q9967; J2405

== ENCOUNTER 2021-07-22 09:30 | Outpatient (RCR) | payer MEDICARE, OTHER, SELFPAY ==
[2021-07-15 00:32] VITALS: BP 144/77; PULSE 70; RESP 18; TEMP 36.4; BMI 30.6
[2021-07-15 09:40] VITALS: BP 138/70; RESP 18; TEMP 36.1; BMI 30.6
--- NOTE | 2021-07-15 11:23 | PN.PCM_ITS ---
History of Present Illness Date of Service: 07/15/21 Chief Complaint: Non-healing left third toe plantar wound with osteomyelitis History of Wound: This 75-year-old diabetic male patient was seen today as a podiatry consultation for nonhealing left third toe ulcer with suspected osteomyelitis. History of diabetes mellitus and per patient his last A1c was 7.6 percent. He reports compliance with his medication. He denies chills, fever, nausea, vomiting, diarrhea or other illness. Patient is undergoing treatment with advanced wound care as well as hyperbaric oxygen treatment to salvage his left foot. He has been walking in a regular close shoe. His swelling has also decreased. He is with his today. He was also seen by infectious disease specialist, Dr. Berry, today as well. He is interested in proceeding with hyperbaric oxygen therapy if possible. He also brought his offloading cam walker boot for adjustment today. Progress of Wound: Left third toe healing well small slit still using Aquacel extra seems to be healing well bleeds easily with debridement. Patient unable to do HBO on a regular basis is missing too many days so we will cancel at this time and if we has to we can restart if we feel it is necessary for healing purposes Subjective Subjective Patient has no concerns doing well with dressing changes Objective Data Objective Data Left third toe healing well smaller tolerating the Aquacel extra well Vital Signs: Vital Signs Temp Pulse Resp BP 97.0 F L 70 18 138/70 H 07/15/21 09:40 07/15/21 00:32 07/15/21 09:40 07/15/21 09:40 Oxygen Delivery Method Room Air Weight: 235 lb Body Mass Index (BMI) 30.6 Physical Exam Const oriented x3 General Appearance: cooperative HEENT normocephalic Head and Scalp: normal to inspection General Ear: hearing grossly impaired External Ear: external ears normal Tympanic Membrane: other Other Details: Right tympanic membrane intact and normal with slight laceration inside right ear canal, left tympanic membrane with some fairly recent bloody drainage. Eustachian tubes intact bilaterally. Neck full ROM General: normal visual inspection Resp normal respiratory effort Effort and Inspection: able to speak in complete sentences Auscultation: clear to auscultation bilaterally Cardio Negative for regular rate or regular rhythm Neuro oriented x3 Psych Appearance: grossly normal Speech: normal speech Thought Content: normal thought content Debridement Note Debridement Note Post-Debridement Measurements and Additional Note: Post-Debridement Measurements/Treatment JONNY - Nurse 1 - General Ulcer Assessment Start: 07/15/21 09:40 Freq: Status: Active Protocol: REMA Activity Type Activity Date Activity User E-Sign Co-Sign Detail Recorded Client Recorded Date Recorded By Document 07/15/21 09:40 MT [id number] 07/15/21 09:48 MT Edit Result 07/15/21 09:40 MT (1) [id number] 07/15/21 09:50 MT (1) Blood Pressure (90/60-120/80) => 138/70 H Blood Pressure Mean (mm Hg) => 92 07/15/21 09:40 - Today's Visit Information Type of service Follow-up Visit (Physician/TELEHEALTH NURSE EDUCATOR ) Arrival Mode Ambulatory Accompanied by self Patient Identification Verified (Name & Yes ) Height and Weight Body Mass Index (BMI) 30.6 BMI Classification Obese Vital Signs Temperature (97.8 F-99.1 F) 97.0 F L Temperature Source Temporal Pulse Location Monitor Respiratory Rate (12-18) 18 Respiratory rate source Observation Oxygen Delivery Method Room Air Blood Pressure (90/60-120/80) 138/70 H Blood Pressure Mean (mm Hg) 92 Source Monitor Position Sitting Blood Pressure Location Left Arm History Since Last Visit- (Skip if this is Patient's initial visit) Has dressing in place as prescribed Yes Has compression in place as prescribed Yes Has offloadiing in place as prescribed Yes Experienced any changes in pain level or Yes management Left Footwear Removable Cast Walker/Walking Boot Right Footwear Regular Shoe JONNY - Nurse 1 - General Ulcer Measurement Start: 07/15/21 09:40 Freq: Status: Active Protocol: Activity Type Activity Date Activity User E-Sign Co-Sign Detail Recorded Client Recorded Date Recorded By Document 07/15/21 09:40 MT [id number] 07/15/21 09:48 MT 07/15/21 09:40 Wound Center Nurse 1 #4- L PLANTAR 3RD TOE -Current Size (cm) - Length 0.1 -Current Size (cm) - Width 0.4 -Current Size (cm) - Depth 0.1 -Total Square Cm 0.04 -Exudate Amt Small -Exudate Type Serosanguineous -Wound Margin Thickened & Rolled Under -Granulation Amt Large (67-100%) -Granulation Quality Drain -Necrosis Amt Small (1-33%) -Necrotic Tissue Type Adherent Slough -Texture (Angie-wound Skin Appearance) Assessed,Callus -Moisture (Angie-wound Skin Appearance) Assessed -Color (Angie-wound Skin Appearance) Assessed -Temperature (Angie-wound Skin No Abnormality Appearance) (Pt Warm) -Tenderness on Palpation (Angie-wound No Skin Appearance) -Ulcer Cleansing Rinsed/ Irrigated with Saline -Foul Odor after Cleansing No -Anesthetic Used 4% Lidocaine Solution Left Calf (cm) 38 Left Ankle (cm) 25 WC - Nurse 2 - General Ulcer CM Notes Start: 07/15/21 09:40 Freq: Status: Active Protocol: Activity Type Activity Date Activity User E-Sign Co-Sign Detail Recorded Client Recorded Date Recorded By Document 07/15/21 09:54 MW [id number] 07/15/21 09:58 MW 07/15/21 09:54 Wound Center Nurse 2 #4- L PLANTAR 3RD TOE -Time 09:54 -Correct Patient Yes -Correct Side, Site, Position Yes -Correct Procedure Yes -Procedure Performed Yes -Type of Procedure Debridement -Clinical Debridement Subcutaneous -Tissue Removed Subcutaneous -Post Debridement (cm) - Length 0.2 -Post Debridement (cm) - Width 0.6 -Post Debridement (cm) - Depth 0.2 -Total Square (Post) (cm) 0.12 -Area of Debridement (cm) - Length 0.2 -Area of Debridement (cm) - Width 0.6 -Total Square (Area) (cm) 0.12 -Tunneling No -Undermining/Tunneling No -Circular Undermining No -Wound/Ulcer Outcome Not Healed -Ulcer Cleansing Rinsed/ Irrigated with Saline -Foul Odor after Cleansing No -Bioengineered Tissue No -Bleeding Controlled with Pressure -Offloading No -Treatment Response Procedure Tolerated Well -Debridement - Subq, 1st 20sq cm Yes Pain Scale: 0-10 Numeric Is Patient Pain Free? Yes - Nurse 3 - General Ulcer D/C NN Start: 07/15/21 09:40 Freq: Status: Active Protocol: Activity Type Activity Date Activity User E-Sign Co-Sign Detail Recorded Client Recorded Date Recorded By Document 07/15/21 10:07 MW [id number] 07/15/21 10:08 MW 07/15/21 10:07 Wound Care Nurse 3 #4- L PLANTAR 3RD TOE -Ulcer Cleansing Rinsed/ Irrigated with Saline -Primary Dressing Applied Aquacel Extra -Primary Dressing Covered/Secured with Dry Gauze & Roll Gauze, Secured with Tape -Aquacel Extra 1 WC - Visit Discharge Discharge Condition Stable Ambulatory Status Ambulatory Transportation Private Auto Medication Reconcilliation completed & No provided to patient/care provider Clinical Summary of Care Provided Yes Wound debrided: Left third toe Type of Debridement: Excisional debridement Anesthesia Used: 5% Lidocaine Gel Depth: Down to and including healthy tissue Percentage of wound debrided: 100 Instrument Used: 3mm curette Tissue Removed: Fibrin Severity: Limited To Skin Breakdown Amount of bleeding with debridement: Mild Bleeding Controlled with: Pressure Patient tolerated procedure: Patient tolerated procedure well Assessment/Plan Assessment/Plan (1) Non-pressure chronic ulcer of other part of left foot with necrosis of bone: CODE(S): L97.524 - Non-pressure chronic ulcer of other part of left foot with necrosis of bone (2) Deformity of toe of left foot: CODE(S): M20.62 - Acquired deformities of toe(s), unspecified, left foot (3) Diabetic foot ulcer associated with type 2 diabetes mellitus: CODE(S): E11.621 - Type 2 diabetes mellitus with foot ulcer; L97.509 - Non-pressure chronic ulcer of other part of unspecified foot with unspecified severity QUALIFIERS: Diabetic foot ulcer location: toe Laterality: left Non-pressure ulcer stage: with bone involvement without evidence of necrosis Qualified Code(s): E11.621 - Type 2 diabetes mellitus with foot ulcer; L97.526 - 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 involvement without evidence of necrosis PLAN: Cleanse foot with antibacterial soap pack wound from lateral to posterior with Aquacel extra gauze cover with gauze and tape every day Follow-up in 1 week Discontinue HBO treatments as tolerates (4) Non-healing surgical wound: CODE(S): T81.89XA - Other complications of procedures, not elsewhere classified, initial encounter QUALIFIERS: Encounter type: subsequent encounter Qualified Code(s): T81.89XD - Other complications of procedures, not elsewhere classified, subsequent encounter
[2021-07-22 09:42] VITALS: BP 150/73; PULSE 85; TEMP 35.8; BMI 30.6
--- NOTE | 2021-07-22 10:50 | PN.PCM_ITS ---
History of Present Illness Date of Service: 07/22/21 Chief Complaint: Non-healing left third toe plantar wound with osteomyelitis History of Wound: This 75-year-old diabetic male patient was seen today as a podiatry consultation for nonhealing left third toe ulcer with suspected osteomyelitis. History of diabetes mellitus and per patient his last A1c was 7.6 percent. He reports compliance with his medication. He denies chills, fever, nausea, vomiting, diarrhea or other illness. Patient is undergoing treatment with advanced wound care as well as hyperbaric oxygen treatment to salvage his left foot. He has been walking in a regular close shoe. His swelling has also decreased. He is with his today. He was also seen by infectious disease specialist, Dr. Berry, today as well. He is interested in proceeding with hyperbaric oxygen therapy if possible. He also brought his offloading cam walker boot for adjustment today. Progress of Wound: Today the wound is closed and healed patient will be discharged from the wound center Subjective Subjective No concerns Objective Data Objective Data Skin wound of the third toe is well approximated and healed patient will be discharged from the wound center follow-up as needed Vital Signs: Vital Signs Temp Pulse Resp BP 96.5 F L 85 18 150/73 H 07/22/21 09:42 07/22/21 09:42 07/15/21 09:40 07/22/21 09:42 Oxygen Delivery Method Room Air Weight: 235 lb Body Mass Index (BMI) 30.6 Physical Exam Const oriented x3 General Appearance: cooperative HEENT normocephalic Head and Scalp: normal to inspection General Ear: hearing grossly impaired External Ear: external ears normal Tympanic Membrane: other Other Details: Right tympanic membrane intact and normal with slight laceration inside right ear canal, left tympanic membrane with some fairly recent bloody drainage. Eustachian tubes intact bilaterally. Neck full ROM General: normal visual inspection Resp normal respiratory effort Effort and Inspection: able to speak in complete sentences Auscultation: clear to auscultation bilaterally Cardio Negative for regular rate or regular rhythm Neuro oriented x3 Psych Appearance: grossly normal Speech: normal speech Thought Content: normal thought content Debridement Note Debridement Note No debridement was completed: No debridement was completed today Assessment/Plan Assessment/Plan (1) Non-pressure chronic ulcer of other part of left foot with necrosis of bone: CODE(S): L97.524 - Non-pressure chronic ulcer of other part of left foot with necrosis of bone (2) Deformity of toe of left foot: CODE(S): M20.62 - Acquired deformities of toe(s), unspecified, left foot (3) Diabetic foot ulcer associated with type 2 diabetes mellitus: CODE(S): E11.621 - Type 2 diabetes mellitus with foot ulcer; L97.509 - Non-pressure chronic ulcer of other part of unspecified foot with unspecified severity QUALIFIERS: Diabetic foot ulcer location: toe Laterality: left Non-pressure ulcer stage: with bone involvement without evidence of necrosis Qualified Code(s): E11.621 - Type 2 diabetes mellitus with foot ulcer; L97.526 - 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 involvement without evidence of necrosis PLAN: Discharge from the wound center follow-up as needed may cover the wound with gauze dressing for 1 week follow-up with Dr. Amador on for shoe f ittings For proper fit (4) Non-healing surgical wound: CODE(S): T81.89XA - Other complications of procedures, not elsewhere classified, initial encounter QUALIFIERS: Encounter type: subsequent encounter Qualified Code(s): T81.89XD - Other complications of procedures, not elsewhere classified, subsequent encounter
== END 2021-07-22 10:35 | disposition home or self-care (01) ==
LOC: WC 09:30
PROVIDERS: PCP Family Medicine; Referring Provider Podiatrist Foot & Ankle Surgery; Visit Provider Nurse Practitioner
DX: E11.621 Type 2 diabetes mellitus with foot ulcer (principal); L97.524 Non-pressure chronic ulcer of other part of left foot with necrosis of bone; M20.62 Acquired deformities of toe(s), unspecified, left foot; T81.89XD Other complications of procedures, not elsewhere classified, subsequent encounter
CPT/HCPCS: 11042; 99213; G0463

== ENCOUNTER → 2021-07-31 09:23 | Outpatient (CLI) | payer MEDICARE, OTHER, SELFPAY ==
[2021-07-31 12:46] LABS: AST(SGOT) 43 U/L (15-37); Alanine Aminotransfer ALT/SGPT 78 U/L (16-61); Albumin, Serum 3.4 g/dL (3.2-5.0); Alkaline Phosphatase 56 U/L (45-117); Bilirubin, Direct 0.16 mg/dL (0.00-0.30); Cholesterol 132 mg/dL (200); Globulin 3.6 g/dL (2.2-4.2); High Density Lipoprotein 52 mg/dL; Triglycerides 83 mg/dL; Very Low Density Lipoprotein 17 mg/dL (5-40)
== END ==
PROVIDERS: PCP Family Medicine; Referring Provider Internal Medicine Cardiovascular Disease; Visit Provider Internal Medicine Cardiovascular Disease
DX: E78.00 Pure hypercholesterolemia, unspecified (principal)
CPT/HCPCS: 36415; 80061; 80076

== ENCOUNTER → 2021-08-07 10:57 | Outpatient (CLI) | payer MEDICARE, OTHER, SELFPAY ==
[2021-08-07 11:36] LABS: Absolute Lymphocyte Count 1.31 X10^3/uL (0.83-4.51); Absolute Neutrophil Count 2.6 X10^3/uL (2.0-7.7); Basophil# 0.02 X10^3/uL; Basophil% 0.4 % (0-1); Eosinophil# 0.42 X10^3/uL; Eosinophils% 8.7 % (0-5); Hematocrit 36.2 % (40-54); Hemoglobin 12.3 g/dL (13.0-16.5); Lymphocyte # 1.31 X10^3/ul (0.83-4.51); Lymphocyte % 27.1 % (19-41); Mean Corpuscular Hgb 31.5 pg (27.0-32.0); Mean Corpuscular Volume 92.8 fL (80-94); Mean Platelet Vol. 10.6 fl (6.2-12.0); Monocyte# 0.43 X10^3/uL; Monocyte% 8.9 % (0-10); NRBC Flagged by Analyzer 0 % (0-5); Neutrophil # 2.64 X10^3/uL (2.7-7.7); Neutrophil % 54.7 % (47-70); Platelet Count 205 K/mm3 (150-450); RBC Distribution Width CV 14.8 % (11.6-14.6); RBC Distribution Width SD 49.9 fl (35.1-43.9); White Blood Count 4.8 K/mm3 (4.4-11.0)
[2021-08-07 11:37] LABS: Erythrocyte Sedimentation Rate 9 mm/hr (0-20)
[2021-08-07 12:04] LABS: AST(SGOT) 31 U/L (15-37); Alanine Aminotransfer ALT/SGPT 52 U/L (16-61); CRP < 2.90 mg/L (0.0-3.0); Creatinine, Serum 1.18 mg/dL (0.70-1.30); EST Glomerular Filtration Rate 63 mL/min (>60); Est Glom Filt Rate - Afr Amer 77 mL/min (>60)
== END ==
PROVIDERS: PCP Family Medicine; Referring Provider Internal Medicine Rheumatology; Visit Provider Internal Medicine Rheumatology
DX: L40.52 Psoriatic arthritis mutilans (principal); L40.50 Arthropathic psoriasis, unspecified; L40.9 Psoriasis, unspecified; L30.9 Dermatitis, unspecified; M17.0 Bilateral primary osteoarthritis of knee; M50.90 Cervical disc disorder, unspecified, unspecified cervical region; L40.3 Pustulosis palmaris et plantaris; Z85.828 Personal history of other malignant neoplasm of skin; Z79.899 Other long term (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; Z79.1 Long term (current) use of non-steroidal anti-inflammatories (NSAID)
CPT/HCPCS: 36415; 82565; 84450; 84460; 85025; 85652; 86140

== ENCOUNTER → 2021-08-11 09:01 | Outpatient (CLI) | payer MEDICARE, OTHER, SELFPAY ==
[2021-08-11 09:35] LABS: Absolute Lymphocyte Count 1.36 X10^3/uL (0.83-4.51); Absolute Neutrophil Count 2.2 X10^3/uL (2.0-7.7); Basophil# 0.03 X10^3/uL; Basophil% 0.7 % (0-1); Eosinophil# 0.47 X10^3/uL; Eosinophils% 10.3 % (0-5); Hematocrit 39.9 % (40-54); Lymphocyte # 1.36 X10^3/ul (0.83-4.51); Lymphocyte % 29.7 % (19-41); Mean Corp Hgb Conc 32.6 g/dL (32-36); Mean Corpuscular Hgb 30.7 pg (27.0-32.0); Mean Corpuscular Volume 94.3 fL (80-94); Mean Platelet Vol. 11.1 fl (6.2-12.0); Monocyte# 0.48 X10^3/uL; Monocyte% 10.5 % (0-10); NRBC Flagged by Analyzer 0 % (0-5); Neutrophil # 2.22 X10^3/uL (2.7-7.7); Neutrophil % 48.4 % (47-70); Platelet Count 214 K/mm3 (150-450); RBC Distribution Width CV 14.7 % (11.6-14.6); RBC Distribution Width SD 51.1 fl (35.1-43.9); Red Blood Count 4.23 M/mm3 (4.6-6.2); White Blood Count 4.6 K/mm3 (4.4-11.0)
[2021-08-11 10:10] LABS: Microalbumin:Creatinine Ratio 90.2 mg/g CRE (<30 mg/g CRE)
[2021-08-11 10:11] LABS: ALB/GLOB Ratio 0.9 RATIO (0.9-2.4); AST(SGOT) 31 U/L (15-37); Alanine Aminotransfer ALT/SGPT 49 U/L (16-61); Albumin, Serum 3.5 g/dL (3.2-5.0); Alkaline Phosphatase 64 U/L (45-117); Anion Gap 7 (5-15); BUN 17 mg/dL (7-18); Calcium,Total 9.4 mg/dL (8.5-10.1); Chloride 104 mmol/L (98-107); Cholesterol 143 mg/dL (200); Creatinine, Serum 1.06 mg/dL (0.70-1.30); EST Glomerular Filtration Rate 72 mL/min (>60); Est Glom Filt Rate - Afr Amer 87 mL/min (>60); Globulin 3.8 g/dL (2.2-4.2); Glucose 155 mg/dL (74-106); High Density Lipoprotein 52 mg/dL; Protein, Total 7.3 g/dL (6.4-8.2); Sodium Level 140 mmol/L (136-145); Thyroid Stim Hormone (TSH) 2.53 uIU/mL (0.358-3.74); Triglycerides 82 mg/dL; Very Low Density Lipoprotein 16 mg/dL (5-40)
[2021-08-11 10:27] LABS: Hemoglobin A1c 6.7 % (3.8-5.6)
== END ==
PROVIDERS: PCP Family Medicine; Referring Provider Family Medicine; Visit Provider Family Medicine
DX: M86.179 Other acute osteomyelitis, unspecified ankle and foot (principal); E11.8 Type 2 diabetes mellitus with unspecified complications; I10 Essential (primary) hypertension
CPT/HCPCS: 36415; 80053; 80061; 82043; 82570; 83036; 84443; 85025

== ENCOUNTER → 2021-08-21 11:53 | Outpatient (CLI) | payer MEDICARE, OTHER, SELFPAY ==
[2021-08-21 13:28] LABS: PSA,Total- Diagnostic 0.76 ng/mL (0.0-4.0)
== END ==
PROVIDERS: PCP Family Medicine; Referring Provider Urology; Visit Provider Urology
DX: C61 Malignant neoplasm of prostate (principal)
CPT/HCPCS: 36415; 84153

== ENCOUNTER → 2021-08-25 09:59 | Outpatient (CLI) | payer MEDICARE, OTHER, SELFPAY ==
[2021-06-24 09:22] VITALS: BMI 30.6
[2021-08-25 10:42] VITALS: BP 152/69; PULSE 81; RESP 16; TEMP 36.6; O2SAT 100; BMI 29.8
[2021-08-25] MEDS: 0.9% NaCl IVPB Med Flush (250 mL) 15 ML IV (10:45)
[2021-08-25] MEDS: DiphenhydrAMINE 50 MG/ML Syringe 12.5 MG IV (10:45)
[2021-08-25] MEDS: 0.9% NaCl Peripheral Flush Adult/Peds IV (11:47)
== END ==
PROVIDERS: PCP Family Medicine; Referring Provider Family Medicine; Visit Provider Family Medicine
DX: Z51.11 Encounter for antineoplastic chemotherapy (principal); M50.90 Cervical disc disorder, unspecified, unspecified cervical region; L40.52 Psoriatic arthritis mutilans; L40.9 Psoriasis, unspecified; Z79.899 Other long term (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
CPT/HCPCS: 96375; 96376; 96413; 96415; J7050; A4216; Q5103

== ENCOUNTER → 2021-09-17 11:30 | Outpatient (CLI) | payer MEDICARE, OTHER, SELFPAY ==
--- NOTE | 2021-09-17 11:34 | RAD_ITS ---
STUDY: X-RAY - LEFT FOOT CLINICAL: Male, 76 years old. swelling entire foot, hx of osteomyelitis, lateral 3rd toe draining TECHNIQUE: 3 view(s) of the foot. COMPARISON: Left foot x-ray dated May 19, 2021 FINDINGS: There is absence head and neck of the third proximal phalanx either due to prior amputation or sequela from chronic osteomyelitis. Consolidative bone at the tip of the third proximal phalanx extending distally could be reparative or surgically intentional bone graft. These findings were not present on the prior left foot x-ray. The distal phalanx of the fourth toe is absent due to prior amputation. Reidentification of scattered degenerative changes throughout the foot. Normal talus, calcaneus, and tarsal bones. Normal visualized subtalar, talonavicular, calcaneocuboid, tarsal and tarsometatarsal articulations. Normal metatarsi. Normal metatarsophalangeal joint of the great toe. Normal tibial and fibular sesamoid bones. Normal interphalangeal joint of the great toe. Normal second through fifth metatarsophalangeal joints. The soft tissue structures are unremarkable. RAD/Foot min 3 Views IMPRESSION: 1. There is absence head and neck of the third proximal phalanx either due to prior amputation or sequela from chronic osteomyelitis. Consolidative bone at the tip of the third proximal phalanx extending distally could be reparative or surgically intentional bone graft. These findings were not present on the prior left foot x-ray. Electronically Signed: Cal Deleon MD at 16:16 EDT , Service support ,
[2021-09-17 15:46] LABS: Absolute Lymphocyte Count 1.53 X10^3/uL (0.83-4.51); Absolute Neutrophil Count 3.4 X10^3/uL (2.0-7.7); Basophil# 0.02 X10^3/uL; Basophil% 0.3 % (0-1); Eosinophil# 0.51 X10^3/uL; Eosinophils% 8.5 % (0-5); Hematocrit 42.1 % (40-54); Hemoglobin 13.8 g/dL (13.0-16.5); Lymphocyte # 1.53 X10^3/ul (0.83-4.51); Lymphocyte % 25.4 % (19-41); Mean Corp Hgb Conc 32.8 g/dL (32-36); Mean Corpuscular Hgb 31.1 pg (27.0-32.0); Mean Corpuscular Volume 94.8 fL (80-94); Mean Platelet Vol. 11.6 fl (6.2-12.0); Monocyte# 0.58 X10^3/uL; Monocyte% 9.6 % (0-10); NRBC Flagged by Analyzer 0 % (0-5); Neutrophil # 3.38 X10^3/uL (2.7-7.7); Platelet Count 262 K/mm3 (150-450); RBC Distribution Width CV 13.9 % (11.6-14.6); RBC Distribution Width SD 48.7 fl (35.1-43.9); Red Blood Count 4.44 M/mm3 (4.6-6.2)
[2021-09-17 15:54] LABS: Erythrocyte Sedimentation Rate 9 mm/hr (0-20)
[2021-09-17 15:57] LABS: ALB/GLOB Ratio 0.9 RATIO (0.9-2.4); AST(SGOT) 30 U/L (15-37); Alanine Aminotransfer ALT/SGPT 42 U/L (16-61); Albumin, Serum 3.7 g/dL (3.2-5.0); Alkaline Phosphatase 80 U/L (45-117); Anion Gap 4 (5-15); BUN 20 mg/dL (7-18); BUN/Creat Ratio 18.7 RATIO (10-20); CRP < 2.90 mg/L (0.0-3.0); Calcium,Total 9.7 mg/dL (8.5-10.1); Chloride 104 mmol/L (98-107); Creatinine, Serum 1.07 mg/dL (0.70-1.30); EST Glomerular Filtration Rate 71 mL/min (>60); Est Glom Filt Rate - Afr Amer 86 mL/min (>60); Globulin 4.2 g/dL (2.2-4.2); Glucose 103 mg/dL (74-106); Hemoglobin A1c 6.3 % (3.8-5.6); Protein, Total 7.9 g/dL (6.4-8.2); Sodium Level 139 mmol/L (136-145)
[2021-09-17 16:08] LABS: Microalbumin:Creatinine Ratio 132.9 mg/g CRE (<30 mg/g CRE)
[2021-09-18 08:14] LABS: PTHIN 40.9 pg/mL (18.4-80.1)
== END ==
PROVIDERS: PCP Family Medicine; Referring Provider Family Medicine; Visit Provider Family Medicine
DX: E11.8 Type 2 diabetes mellitus with unspecified complications (principal); R60.0 Localized edema
CPT/HCPCS: 36415; 73630; 80053; 82043; 82570; 83036; 83970; 85025; 85652; 86140

== ENCOUNTER → 2021-10-20 09:55 | Outpatient (CLI) | payer MEDICARE, OTHER, SELFPAY ==
[2021-10-20 10:00] VITALS: BP 141/67; PULSE 68; RESP 16; TEMP 35.6; BMI 29.9
[2021-10-20] MEDS: DiphenhydrAMINE 50 MG/ML Syringe 12.5 MG IV (10:26)
== END ==
PROVIDERS: PCP Family Medicine; Referring Provider Family Medicine; Visit Provider Family Medicine
DX: M50.90 Cervical disc disorder, unspecified, unspecified cervical region (principal); M17.0 Bilateral primary osteoarthritis of knee; L40.52 Psoriatic arthritis mutilans; L40.50 Arthropathic psoriasis, unspecified; L40.9 Psoriasis, unspecified; L21.9 Seborrheic dermatitis, unspecified; L30.9 Dermatitis, unspecified; L85.3 Xerosis cutis; Z79.899 Other long term (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; Z79.1 Long term (current) use of non-steroidal anti-inflammatories (NSAID); L40.3 Pustulosis palmaris et plantaris
CPT/HCPCS: 96376; 96413; 96415; J7050; A4216; Q5103

== ENCOUNTER 2021-11-16 11:34 | Outpatient (CLI) | payer MEDICARE, OTHER, SELFPAY | END 2021-11-16 23:59 | disposition short-term general hospital (02) | LOC: LABSPEC 11:37 | PROVIDERS: PCP Family Medicine; Referring Provider Physician Assistant Surgical; Visit Provider Physician Assistant Surgical | DX: U07.1 COVID-19 (principal) | CPT/HCPCS: 87635; U0003; U0005 ==

== ENCOUNTER 2021-12-04 11:43 | Outpatient (RCR) | payer MEDICARE, OTHER, SELFPAY ==
[2021-12-04 12:13] LABS: Absolute Lymphocyte Count 1.62 X10^3/uL (0.83-4.51); Absolute Neutrophil Count 3.5 X10^3/uL (2.0-7.7); Basophil# 0.03 X10^3/uL; Basophil% 0.5 % (0-1); Eosinophil# 0.48 X10^3/uL; Eosinophils% 7.7 % (0-5); Hematocrit 42.2 % (40-54); Hemoglobin 14.1 g/dL (13.0-16.5); Lymphocyte # 1.62 X10^3/ul (0.83-4.51); Lymphocyte % 26.1 % (19-41); Mean Corp Hgb Conc 33.4 g/dL (32-36); Mean Corpuscular Hgb 31.5 pg (27.0-32.0); Mean Corpuscular Volume 94.2 fL (80-94); Mean Platelet Vol. 10.5 fl (6.2-12.0); Monocyte# 0.61 X10^3/uL; Monocyte% 9.8 % (0-10); NRBC Flagged by Analyzer 0 % (0-5); Neutrophil # 3.45 X10^3/uL (2.7-7.7); Neutrophil % 55.6 % (47-70); Platelet Count 264 K/mm3 (150-450); RBC Distribution Width CV 13.7 % (11.6-14.6); Red Blood Count 4.48 M/mm3 (4.6-6.2); White Blood Count 6.2 K/mm3 (4.4-11.0)
[2021-12-04 12:14] LABS: Erythrocyte Sedimentation Rate 5 mm/hr (0-20)
[2021-12-04 12:39] LABS: AST(SGOT) 30 U/L (15-37); Alanine Aminotransfer ALT/SGPT 46 U/L (16-61); CRP < 2.90 mg/L (0.0-3.0); Creatinine, Serum 1.17 mg/dL (0.70-1.30); EST Glomerular Filtration Rate 64 mL/min (>60); Est Glom Filt Rate - Afr Amer 77 mL/min (>60)
== END 2021-12-14 18:00 | disposition home or self-care (01) ==
LOC: LAB 11:43
PROVIDERS: PCP Family Medicine; Referring Provider Internal Medicine Rheumatology; Visit Provider Internal Medicine Rheumatology
DX: L40.52 Psoriatic arthritis mutilans (principal); L21.9 Seborrheic dermatitis, unspecified; L57.8 Other skin changes due to chronic exposure to nonionizing radiation; L85.3 Xerosis cutis; L57.0 Actinic keratosis; D64.9 Anemia, unspecified; M17.0 Bilateral primary osteoarthritis of knee; M50.90 Cervical disc disorder, unspecified, unspecified cervical region; L40.3 Pustulosis palmaris et plantaris; Z79.899 Other long term (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; Z79.01 Long term (current) use of anticoagulants; Z85.828 Personal history of other malignant neoplasm of skin; Z87.39 Personal history of other diseases of the musculoskeletal system and connective tissue
CPT/HCPCS: 36415; 82565; 84450; 84460; 85025; 85652; 86140

== ENCOUNTER 2021-12-15 10:05 | Outpatient (CLI) | payer MEDICARE, OTHER, SELFPAY ==
[2021-12-15 10:10] VITALS: BP 144/74; PULSE 63; RESP 16; TEMP 35.9; O2SAT 98; BMI 31.1
[2021-12-15] MEDS: DiphenhydrAMINE 50 MG/ML Syringe 12.5 MG IV (10:44)
== END 2021-12-15 23:59 | disposition short-term general hospital (02) ==
LOC: MEDOUTP 10:05
PROVIDERS: PCP Family Medicine; Referring Provider Family Medicine; Visit Provider Family Medicine
DX: L40.52 Psoriatic arthritis mutilans (principal); L40.50 Arthropathic psoriasis, unspecified; L21.9 Seborrheic dermatitis, unspecified; L30.9 Dermatitis, unspecified; L85.3 Xerosis cutis; Z79.899 Other long term (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; Z79.1 Long term (current) use of non-steroidal anti-inflammatories (NSAID); M17.0 Bilateral primary osteoarthritis of knee; M50.90 Cervical disc disorder, unspecified, unspecified cervical region; L40.3 Pustulosis palmaris et plantaris
CPT/HCPCS: 96413; 96415; 96374; J7050; A4216; Q5103

== ENCOUNTER 2022-02-05 08:49 | Outpatient (CLI) | payer MEDICARE, OTHER, SELFPAY ==
[2022-02-05 09:25] LABS: Absolute Lymphocyte Count 1.31 X10^3/uL (0.83-4.51); Absolute Neutrophil Count 3.5 X10^3/uL (2.0-7.7); Basophil# 0.05 X10^3/uL; Basophil% 0.8 % (0-1); Eosinophil# 0.42 X10^3/uL; Eosinophils% 6.9 % (0-5); Hematocrit 42.8 % (40-54); Hemoglobin 14.3 g/dL (13.0-16.5); Lymphocyte # 1.31 X10^3/ul (0.83-4.51); Lymphocyte % 21.5 % (19-41); Mean Corp Hgb Conc 33.4 g/dL (32-36); Mean Corpuscular Hgb 31.7 pg (27.0-32.0); Mean Corpuscular Volume 94.9 fL (80-94); Mean Platelet Vol. 10.3 fl (6.2-12.0); Monocyte# 0.81 X10^3/uL; Monocyte% 13.3 % (0-10); NRBC Flagged by Analyzer 0 % (0-5); Neutrophil # 3.48 X10^3/uL (2.7-7.7); Neutrophil % 57.2 % (47-70); Platelet Count 208 K/mm3 (150-450); RBC Distribution Width CV 13.9 % (11.6-14.6); RBC Distribution Width SD 48.2 fl (35.1-43.9); Red Blood Count 4.51 M/mm3 (4.6-6.2); White Blood Count 6.1 K/mm3 (4.4-11.0)
[2022-02-05 09:32] LABS: Erythrocyte Sedimentation Rate 21 mm/hr (0-20)
[2022-02-05 09:59] LABS: Hemoglobin A1c 6.9 % (3.8-5.6)
[2022-02-05 10:17] LABS: ALB/GLOB Ratio 0.9 RATIO (0.9-2.4); AST(SGOT) 27 U/L (15-37); Alanine Aminotransfer ALT/SGPT 56 U/L (16-61); Albumin, Serum 3.6 g/dL (3.2-5.0); Alkaline Phosphatase 77 U/L (45-117); Anion Gap 5 (5-15); BUN 23 mg/dL (7-18); BUN/Creat Ratio 17.4 RATIO (10-20); CRP 4.99 mg/L (0.0-3.0); Calcium,Total 9.7 mg/dL (8.5-10.1); Chloride 106 mmol/L (98-107); Cholesterol 144 mg/dL (200); Creatinine, Serum 1.32 mg/dL (0.70-1.30); EST Glomerular Filtration Rate 56 mL/min (>60); Est Glom Filt Rate - Afr Amer 67 mL/min (>60); Globulin 3.9 g/dL (2.2-4.2); Glucose 166 mg/dL (74-106); High Density Lipoprotein 47 mg/dL; PSA,Total- Diagnostic 0.86 ng/mL (0.0-4.0); Potassium 4.4 mmol/L (3.5-5.1); Protein, Total 7.5 g/dL (6.4-8.2); Sodium Level 139 mmol/L (136-145); Triglycerides 76 mg/dL; Very Low Density Lipoprotein 15 mg/dL (5-40)
[2022-02-05 10:34] LABS: Microalbumin:Creatinine Ratio 123.7 mg/g CRE (<30 mg/g CRE)
== END 2022-02-05 23:59 | disposition home or self-care (01) ==
LOC: LAB 08:54
PROVIDERS: PCP Family Medicine; Visit Provider Family Medicine
DX: C61 Malignant neoplasm of prostate (principal); L40.52 Psoriatic arthritis mutilans; L21.9 Seborrheic dermatitis, unspecified; L57.8 Other skin changes due to chronic exposure to nonionizing radiation; L85.3 Xerosis cutis; L57.0 Actinic keratosis; D64.9 Anemia, unspecified; M17.0 Bilateral primary osteoarthritis of knee; M50.90 Cervical disc disorder, unspecified, unspecified cervical region; L40.3 Pustulosis palmaris et plantaris; Z79.899 Other long term (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; Z79.1 Long term (current) use of non-steroidal anti-inflammatories (NSAID); Z85.828 Personal history of other malignant neoplasm of skin; Z87.39 Personal history of other diseases of the musculoskeletal system and connective tissue
CPT/HCPCS: 36415; 80053; 80061; 82043; 82248; 82570; 83036; 84153; 85025; 85652; 86140

== ENCOUNTER 2022-02-12 10:00 | Outpatient (CLI) | payer MEDICARE, OTHER, SELFPAY ==
[2022-02-12 10:08] VITALS: BP 149/103; PULSE 83; RESP 16; TEMP 36; O2SAT 97; BMI 30.2
[2022-02-12] MEDS: DiphenhydrAMINE 50 MG/ML Syringe 12.5 MG IV (10:20)
== END 2022-02-12 23:59 | disposition home or self-care (01) ==
LOC: MEDOUTP 10:01
PROVIDERS: PCP Family Medicine; Referring Provider Family Medicine; Visit Provider Family Medicine
DX: L40.52 Psoriatic arthritis mutilans (principal); L40.50 Arthropathic psoriasis, unspecified; L21.9 Seborrheic dermatitis, unspecified; L85.3 Xerosis cutis; Z79.899 Other long term (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; Z79.1 Long term (current) use of non-steroidal anti-inflammatories (NSAID); M17.0 Bilateral primary osteoarthritis of knee; M50.90 Cervical disc disorder, unspecified, unspecified cervical region; L40.3 Pustulosis palmaris et plantaris
CPT/HCPCS: 96365; 96366; 96375; J7050; A4216; Q5103

== ENCOUNTER 2022-02-22 13:29 | Emergency (ER) | payer MEDICARE, OTHER, SELFPAY ==
[2022-02-22 13:30] VITALS: BP 157/115; PULSE 59; RESP 18; TEMP 35.9; O2SAT 99; BMI 29.8
--- NOTE | 2022-02-22 14:25 | RAD_ITS ---
STUDY: X-RAY - RIGHT FOOT CLINICAL: Male, 76 years old. History of infection. TECHNIQUE: 3 view(s) of the foot. COMPARISON: Comparison is made with prior study dated 01/23/2016. FINDINGS: There is a plantar calcaneal spur. Normal visualized subtalar, talonavicular, calcaneocuboid, tarsal and tarsometatarsal articulations. Normal metatarsi. Normal metatarsophalangeal joint of the great toe. Normal tibial and fibular sesamoid bones. The patient is status post resection of the distal pharynx of the great toe. Soft tissue swelling. Normal second through fifth metatarsophalangeal joints. Status post resection of the distal phalanx and proximal phalanx of the third toe. Flexion deformity of the fourth and fifth proximal interphalangeal joints. Soft tissue swelling overlying the proximal pharynx of the great toe as well as the second toe. Early osteomyelitis should be ruled out. RAD/Foot min 3 Views IMPRESSION: Status post amputation of the proximal and distal phalanges of the third toe and distal phalanx of the great toe. Questionable early osteomyelitis of the distal portion of the second toe with overlying soft tissue swelling. Electronically Signed: Shorty Elizabeth MD at 14:53 EDT ,
[2022-02-22 14:30] LABS: Absolute Lymphocyte Count 1.91 X10^3/uL (0.83-4.51); Absolute Neutrophil Count 4.6 X10^3/uL (2.0-7.7); Basophil# 0.03 X10^3/uL; Basophil% 0.4 % (0-1); Eosinophil# 0.41 X10^3/uL; Eosinophils% 5.2 % (0-5); Hematocrit 42.5 % (40-54); Hemoglobin 14.6 g/dL (13.0-16.5); Lymphocyte # 1.91 X10^3/ul (0.83-4.51); Lymphocyte % 24.4 % (19-41); Mean Corp Hgb Conc 34.4 g/dL (32-36); Mean Corpuscular Hgb 32.4 pg (27.0-32.0); Mean Corpuscular Volume 94.4 fL (80-94); Mean Platelet Vol. 10.1 fl (6.2-12.0); Monocyte# 0.79 X10^3/uL; Monocyte% 10.1 % (0-10); NRBC Flagged by Analyzer 0 % (0-5); Neutrophil # 4.64 X10^3/uL (2.7-7.7); Neutrophil % 59.3 % (47-70); Platelet Count 277 K/mm3 (150-450); RBC Distribution Width CV 13.4 % (11.6-14.6); RBC Distribution Width SD 46.1 fl (35.1-43.9); White Blood Count 7.8 K/mm3 (4.4-11.0)
[2022-02-22 14:38] LABS: Erythrocyte Sedimentation Rate 12 mm/hr (0-20)
--- NOTE | 2022-02-22 14:41 | EDS_ITS ---
HPI History of Present Illness Chief Complaint: Lower Extremity Injury Narrative Narrative: 68-year-old male with history of cellulitis of the lower extremity presenting with cellulitic change on the lateral aspect of his right foot. Patient was placed on doxycycline by Dr. Gomez last week. He has a follow-up appointment today at 4:00 but wanted to come to the emergency room due to the increased redness in this area of the foot. This is apparently worsening. Patient denies any systemic signs or symptoms. He has neuropathy and has no pain with this. [facility] Medical History Acute osteomyelitis involving ankle and foot Arthritis Body mass index 31.0-31.9, adult Cellulitis Chronic osteomyelitis involving ankle and foot Diabetes mellitus Ectopic atrial tachycardia Essential hypertension Hyperlipidemia Hypertension Long-term use of high-risk medication Methicillin susceptible Staphylococcus aureus infection Nonhealing nonsurgical wound with fat layer exposed RAJESH (obstructive sleep apnea) Paroxysmal ventricular tachycardia Premature atrial contractions Premature ventricular contraction Psoriasis Secondary pulmonary arterial hypertension Shortness of breath Supraventricular tachycardia Home Medications finasteride 5 mg PO DAILY 02/03/16 [History Last Taken Unknown] metformin 1,000 mg PO BIDCM 02/03/16 [History Last Taken Unknown] tamsulosin 0.4 mg PO QHS 02/03/16 [History Last Taken Unknown] bimatoprost 1 drp EACH EYE DAILY 06/30/18 [History Last Taken Unknown] fluticasone propionate 2 spray NASAL DAILY PRN 06/30/18 [History Last Taken Unknown] methotrexate sodium 7.5 mg PO Q7D 06/30/18 [History Last Taken Unknown] pyridoxine (vitamin B6) 100 mg PO QHS 06/30/18 [History Last Taken Unknown] multivitamin with folic acid 1 tab PO DAILY 10/20/18 [History Last Taken Unknown] oxybutynin chloride 5 mg PO QHS 10/20/18 [History Last Taken Unknown] timolol maleate 1 drp EACH EYE BID 10/20/18 [History Last Taken 09/26/20 07:30] folic acid 1 mg tablet 4 mg PO DAILY 06/01/19 [History Last Taken Unknown] glucosamine HCl 1,500 mg tablet 1,500 mg PO BID tab 02/20/20 [History Last T akant Unknown] vit C 250 mg-vit E 90 mg-zinc 40 mg-copper 1 [id number]-[id number]-orwrrd capsule 1 cap PO DAILY 02/20/20 [History Last Taken Unknown] glipizide 10 mg tablet 10 mg PO DAILY tab 05/30/20 [History Last Taken Unknown] infliximab-dyyb 100 mg intravenous solution mg IV [id number] ea 05/30/20 [History Last Taken 08/15/20] naproxen sodium 220 mg PO PRN PRN 09/24/20 [History Last Taken Unknown] cyanocobalamin (vitamin B-12) 100 mcg tablet 500 mcg PO DAILY tab 12/01/20 [History Last Taken Unknown] amlodipine 2.5 mg tablet 2.5 mg PO DAILY #90 tab 02/03/22 [Rx Last Taken Unknown] cholecalciferol (vitamin D3) 25 mcg (1,000 unit) tablet 25 mcg PO BID tab 02/03/22 [History Last Taken Unknown] fexofenadine 180 mg tablet 180 mg PO DAILY PRN 02/03/22 [History Last Taken Unknown] hydrochlorothiazide 25 mg tablet 25 mg PO DAILY #90 tab 02/03/22 [Rx Last Taken Unknown] lisinopril 40 mg tablet 40 mg PO DAILY #90 tab 02/03/22 [Rx Last Taken Unknown] metoprolol succinate 100 mg tablet,extended release 24 hr 100 mg PO BID #180 tab 02/03/22 [Rx Last Taken Unknown] potassium chloride 20 mEq tablet,extended release(part/cryst) 20 meq PO DAILY #90 tab 02/03/22 [Rx Last Taken Unknown] pravastatin 40 mg tablet 40 mg PO QHS #90 tab 02/03/22 [Rx Last Taken Unknown] doxycycline hyclate 100 mg PO BID 02/22/22 [History Last Taken Unknown] Allergy/AdvReac Type Severity Reaction Status Date / Time cephalexin [From Keflex] Allergy Severe rash Verified 02/22/22 13:32 sulfamethoxazole Allergy Severe Rash Verified 02/22/22 13:32 [From Bactrim] trimethoprim [From Bactrim] Allergy Severe Rash Verified 02/22/22 13:32 levofloxacin [From Levaquin] AdvReac Other Verified 02/22/22 13:32 Penicillins AdvReac Unknown Verified 02/22/22 13:32 Family History Father Cancer Prostate Mother Depression Surgical History excision of skin cancer History of foot surgery History of hammer toe correction (09/26/20) History of hernia repair History of partial amputation of toe History of tonsillectomy and adenoidectomy Social History Smoking Status: Former smoker pack-years: 30 alcohol intake: current alcohol intake frequency: holidays/special occasions only substance use type: does not use caffeine: Yes Type: coffee Number of servings: 3 what type of physical activity do you participate in: running and weight training frequency: 1-2 times per week ROS ROS ED Constitutional Constitutional ED: Denies chills or fever(s) Eyes Eyes: Denies blurry vision or change in vision ENT ENT ED: Denies rhinorrhea or sore throat Cardiovascular Cardiovascular: Denies chest pain or palpitations Respiratory/Chest Respiratory/Chest: Denies cough or dyspnea Gastrointestinal Gastrointestinal: Denies abdominal pain, nausea or vomiting Genitourinary Genitourinary ED: Denies dysuria or hematuria Musculoskeletal Musculoskeletal: Denies arthralgias or myalgias Integumentary Reports rash Neurologic Neurologic: Denies headache(s) or paresthesias Psychiatric Psychiatric: Denies anxiety or depression EXAM Physical Exam Const Vital Signs: 02/22/22 13:30 Temperature 96.7 F L Temperature Source Temporal Pulse Rate 59 L Respiratory Rate 18 Blood Pressure 157/115 H Blood Pressure Mean 129 Pulse Ox 99 Oxygen Delivery Method Room Air Positive well nourished General Appearance ED: NAD HEENT normocephalic and atraumatic Resp normal respiratory effort and clear to auscultation bilaterally Cardio regular rate and regular rhythm Neuro oriented x3 and CN's II-XII intact bilaterally Sensorium / Orientation: alert Skin Skin Narrative: Erythema and swelling over the right 4 toe laterally. There is some mild erythema of the dorsum of the foot. No tenderness to palpation. No crepitance. No drainage. MDM MDM MDM Narrative Medical decision making narrative: Patient presented with cellulitis of the right foot. This is over the lateral aspect at the base of the fourth and fifth toes on the plantar surface. No crepitance. No pain. Increased warmth. Patient not having systemic signs or symptoms. Obtain blood work and his CBC and CMP are unremarkable. CRP is slightly elevated 11.3. ESR is within normal limits. X-ray of the right foot does not show any fracture on my in terpretation. There is she denies not any evidence of osteomyelitis where his erythema is. Radiologist reads this as possible osteomyelitis of his second toe. Discussed with Dr. Nguyen. He stated that it sound like he can be discharged and followed up in the office. We will start him on clindamycin. Patient is to reschedule his appointment for evaluation next week. Patient able discharge. Impression: 1. Right foot cellulitis Lab Data Attestation: I reviewed the patient's lab results. Labs: Laboratory Results - last 24 hr 02/22/22 02/22/22 14:20 14:20 WBC 7.8 RBC 4.50 L Hgb 14.6 Hct 42.5 MCV 94.4 H MCH 32.4 H MCHC 34.4 RDW Std Deviation 46.1 H RDW Coeff of Jaimee 13.4 Plt Count 277 MPV 10.1 Immature Gran % (Auto) 0.600 Neut % (Auto) 59.3 Lymph % (Auto) 24.4 [place] % (Auto) 10.1 H Eos % (Auto) 5.2 H Baso % (Auto) 0.4 Absolute Neuts (auto) 4.6 Absolute Lymphs (auto) 1.91 Nucleated RBC % 0 ESR 12 Sodium 138 Potassium 4.2 Chloride 106 Carbon Dioxide 30.0 Anion Gap 2 L BUN 23 H Creatinine 1.22 Estim Creat Clear Calc 54.77 Est GFR (MDRD) Af Amer 74 Est GFR (MDRD) Non-Af 61 BUN/Creatinine Ratio 18.9 Glucose 127 H Calcium 9.4 Total Bilirubin 0.40 AST 32 ALT 58 Alkaline Phosphatase 89 C-React Prot Ext Range 11.30 H Total Protein 7.2 Albumin 3.4 Globulin 3.8 Albumin/Globulin Ratio 0.9 Radiography Diagnostic Testing: Clinical Impression(s) from Imaging Studies Foot X-Ray 02/22/22 14:25 IMPRESSION: Status post amputation of the proximal and distal phalanges of the third toe and distal phalanx of the great toe. Questionable early osteomyelitis of the distal portion of the second toe with overlying soft tissue swelling. Electronically Signed: Shorty Elizabeth MD at 14:53 EDT , Discharge Plan Triage Chief Complaint: Lower Extremity Injury ED Provider: Xavier Foreman Dx/Rx/DC Orders Instructions: Osteomyelitis Dc, Cellulitis Prescriptions: No Action Inflectra 100 mg recon soln IV [id number] RF: 0 glucosamine HCl 1,500 mg tablet 1,500 mg PO BID RF: 0 cyanocobalamin (vitamin B-12) 100 mcg tablet 500 mcg PO DAILY RF: 0 glipizide 10 mg tablet 10 mg PO DAILY RF: 0 cholecalciferol (vitamin D3) 25 mcg (1,000 unit) tablet 25 mcg PO BID RF: 0 amlodipine 2.5 mg tablet 2.5 mg PO DAILY Qty: 90 RF: 3 hydrochlorothiazide 25 mg tablet 25 mg PO DAILY Qty: 90 RF: 3 lisinopril 40 mg tablet 40 mg PO DAILY Qty: 90 RF: 3 metoprolol succinate 100 mg tablet extended release 24 hr 100 mg PO BID Qty: 180 RF: 3 pravastatin 40 mg tablet 40 mg PO QHS Qty: 90 RF: 3 potassium chloride 20 mEq tablet,ER particles/crystals 20 meq PO DAILY Qty: 90 RF: 3 tamsulosin 0.4 MG capsule 0.4 mg PO QHS RF: 0 metformin 1,000 MG tablet 1,000 mg PO BIDCM RF: 0 finasteride 5 MG tablet 5 mg PO DAILY RF: 0 vit C,L-Lc-nnqdv-lutein-zeaxan [id number] kb-qzxl-cy-mg capsule 1 cap PO DAILY RF: 0 methotrexate sodium 2.5 MG tablet 7.5 mg PO Q7D RF: 0 pyridoxine (vitamin B6) 50 MG tablet 100 mg PO QHS RF: 0 fluticasone propionate 1 SPRAY spray,suspension 2 spray NASAL DAILY PRN (Reason: Nasal Congestion) RF: 0 bimatoprost 1 DROP drops 1 drp EACH EYE DAILY RF: 0 folic acid 1 mg tablet 4 mg PO DAILY RF: 0 fexofenadine 180 mg tablet 180 mg PO DAILY PRN (Reason: allergies) RF: 0 oxybutynin chloride 5 MG tablet 5 mg PO QHS RF: 0 timolol maleate 1 DROP drops 1 drp EACH EYE BID RF: 0 multivitamin with folic acid 1 TABLET tablet 1 tab PO DAILY RF: 0 naproxen sodium 220 MG capsule 220 mg PO PRN PRN (Reason: Pain 1-10 Or Fever) RF: 0 doxycycline hyclate 100 mg tablet 100 mg PO BID RF: 0 Primary Care Provider: Jose Turner Referrals: Jose Turner MD [Primary Care Provider] - Glenroy Nguyen DPM [STAFF PHYSICIAN] - As soon as possible Disposition Disposition: Home, Self Care
[2022-02-22 14:45] LABS: ALB/GLOB Ratio 0.9 RATIO (0.9-2.4); AST(SGOT) 32 U/L (15-37); Alanine Aminotransfer ALT/SGPT 58 U/L (16-61); Albumin, Serum 3.4 g/dL (3.2-5.0); Alkaline Phosphatase 89 U/L (45-117); Anion Gap 2 (5-15); BUN 23 mg/dL (7-18); BUN/Creat Ratio 18.9 RATIO (10-20); Calcium,Total 9.4 mg/dL (8.5-10.1); Chloride 106 mmol/L (98-107); Creatinine, Serum 1.22 mg/dL (0.70-1.30); EST Glomerular Filtration Rate 61 mL/min (>60); Est Glom Filt Rate - Afr Amer 74 mL/min (>60); Estimated Creatinine Clearance 54.77 ml/min; Globulin 3.8 g/dL (2.2-4.2); Glucose 127 mg/dL (74-106); Potassium 4.2 mmol/L (3.5-5.1); Protein, Total 7.2 g/dL (6.4-8.2); Sodium Level 138 mmol/L (136-145)
== END 2022-02-22 16:04 | disposition home or self-care (01) ==
PROVIDERS: Emergency Provider Student in an Organized Health Care Education/Training Program; PCP Family Medicine; Visit Provider Student in an Organized Health Care Education/Training Program
DX: L03.115 Cellulitis of right lower limb (principal); I27.21 Secondary pulmonary arterial hypertension; E11.40 Type 2 diabetes mellitus with diabetic neuropathy, unspecified; E78.5 Hyperlipidemia, unspecified; I10 Essential (primary) hypertension; R79.82 Elevated C-reactive protein (CRP); Z87.891 Personal history of nicotine dependence; M19.90 Unspecified osteoarthritis, unspecified site; G47.33 Obstructive sleep apnea (adult) (pediatric); L40.9 Psoriasis, unspecified; Z79.899 Other long term (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; Z79.84 Long term (current) use of oral hypoglycemic drugs
CPT/HCPCS: 73630; 80053; 85025; 85652; 86140; 99283; A4216

== ENCOUNTER 2022-04-09 10:04 | Outpatient (CLI) | payer MEDICARE, OTHER, SELFPAY ==
[2022-04-09 10:21] VITALS: BP 140/88; PULSE 62; RESP 12; TEMP 36.4; O2SAT 96
[2022-04-09] MEDS: DiphenhydrAMINE 50 MG/ML Syringe 12.5 MG IV (10:52)
== END 2022-04-09 23:59 | disposition home or self-care (01) ==
LOC: MEDOUTP 10:04
PROVIDERS: PCP Family Medicine; Referring Provider Family Medicine; Visit Provider Family Medicine
DX: L40.52 Psoriatic arthritis mutilans (principal); L40.9 Psoriasis, unspecified; L21.9 Seborrheic dermatitis, unspecified; L30.9 Dermatitis, unspecified; L85.3 Xerosis cutis; Z79.899 Other long term (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; Z79.1 Long term (current) use of non-steroidal anti-inflammatories (NSAID); M17.0 Bilateral primary osteoarthritis of knee; M50.90 Cervical disc disorder, unspecified, unspecified cervical region; L40.3 Pustulosis palmaris et plantaris
CPT/HCPCS: 96365; 96413; J7050; A4216; Q5103

== ENCOUNTER 2022-04-21 09:46 | Outpatient (RCR) | payer MEDICARE, OTHER, SELFPAY ==
[2022-04-21 10:35] LABS: Absolute Lymphocyte Count 1.19 X10^3/uL (0.83-4.51); Absolute Neutrophil Count 5.6 X10^3/uL (2.0-7.7); Basophil# 0.05 X10^3/uL; Basophil% 0.6 % (0-1); Eosinophil# 0.35 X10^3/uL; Eosinophils% 4.4 % (0-5); Hematocrit 40.3 % (40-54); Hemoglobin 13.8 g/dL (13.0-16.5); Lymphocyte # 1.19 X10^3/ul (0.83-4.51); Lymphocyte % 14.9 % (19-41); Mean Corp Hgb Conc 34.2 g/dL (32-36); Mean Corpuscular Hgb 33.3 pg (27.0-32.0); Mean Corpuscular Volume 97.1 fL (80-94); Mean Platelet Vol. 10.5 fl (6.2-12.0); Monocyte# 0.71 X10^3/uL; Monocyte% 8.9 % (0-10); NRBC Flagged by Analyzer 0 % (0-5); Neutrophil # 5.63 X10^3/uL (2.7-7.7); Neutrophil % 70.4 % (47-70); Platelet Count 255 K/mm3 (150-450); RBC Distribution Width CV 13.2 % (11.6-14.6); RBC Distribution Width SD 46.5 fl (35.1-43.9); Red Blood Count 4.15 M/mm3 (4.6-6.2)
[2022-04-21 10:40] LABS: Erythrocyte Sedimentation Rate 13 mm/hr (0-20)
[2022-04-21 10:57] LABS: Creatinine, Serum 1.22 mg/dL (0.70-1.30)
[2022-04-21 10:58] LABS: AST(SGOT) 23 U/L (15-37); Alanine Aminotransfer ALT/SGPT 43 U/L (16-61); CRP 5.46 mg/L (0.0-3.0); EST Glomerular Filtration Rate 61 mL/min (>60); Est Glom Filt Rate - Afr Amer 74 mL/min (>60)
== END 2022-04-21 23:59 | disposition home or self-care (01) ==
LOC: LAB 09:46
PROVIDERS: PCP Family Medicine; Referring Provider Internal Medicine Rheumatology; Visit Provider Internal Medicine Rheumatology
DX: L40.52 Psoriatic arthritis mutilans (principal); L21.9 Seborrheic dermatitis, unspecified; L57.8 Other skin changes due to chronic exposure to nonionizing radiation; L30.9 Dermatitis, unspecified; L85.3 Xerosis cutis; L57.0 Actinic keratosis; D64.9 Anemia, unspecified; Z85.828 Personal history of other malignant neoplasm of skin; Z79.899 Other long term (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; Z87.39 Personal history of other diseases of the musculoskeletal system and connective tissue; Z79.1 Long term (current) use of non-steroidal anti-inflammatories (NSAID); M17.0 Bilateral primary osteoarthritis of knee; M50.90 Cervical disc disorder, unspecified, unspecified cervical region; L40.3 Pustulosis palmaris et plantaris
CPT/HCPCS: 36415; 82565; 84450; 84460; 85025; 85652; 86140

== ENCOUNTER 2022-05-12 09:00 | Outpatient (RCR) | payer MEDICARE, OTHER, SELFPAY ==
[2022-04-21 08:10] VITALS: BP 154/80; PULSE 76; TEMP 36
--- NOTE | 2022-04-21 09:37 | PN.PCM_ITS ---
History of Present Illness Date of Service: 04/21/22 Chief Complaint: Follow-up on right fifth toe plantar side left plantar great toe and left plantar second toe. History of Wound: 76-year-old white male with previous history of amputations of the toes. Appears with increase in wounds to the toes for the last 6 weeks at least. He has been seen by his own health and safety instructor Dr. Nguyen and he referred him to here. He is currently using Aquacel to his wounds. His usually helps with dressing changes without a problem. Progress of Wound: Left plantar great toe started as a blister and has progressed to an open wound debrided most of the discoloration and maceration down to new skin. Noted on the left plantar great toe some redness going up into the other toes we will get cultures today for that also will expect to get x-rays of the foot to make sure he does not have any osteomyelitis developing. On the right fifth toe and the left second toe a lot of callus with open wounds in the center. Debrided most of the callus off with nippers and down to the new skin. Subjective Subjective No concerns he is just here for treatment Objective Data Objective Data As written above in progress notes we will try using Aquacel continue for treatment for now see what the cultures show and the x-rays show. Vital Signs: Vital Signs Temp Pulse BP 96.8 F L 76 154/80 H 04/21/22 08:10 04/21/22 08:10 04/21/22 08:10 Physical Exam Const oriented x3 General Appearance: cooperative Exam Limitations: no limitations Resp normal respiratory effort Effort and Inspection: able to speak in complete sentences Auscultation: clear to auscultation bilaterally Cardio regular rate and regular rhythm Palpation: normal PMI Rate: regular rate Rhythm: regular rhythm GI Auscultation: normoactive bowel sounds Palpation: soft and no hepatosplenomegaly Extremity normal to inspection General Extremity: normal exam except as noted Skin no rashes or lesions noted Wound Narrative: Open wounds with callus around on the right fifth toe plantar left second toe plantar and left great toe plantar with all with open wounds also. Neuro oriented x3 Psych Appearance: grossly normal Speech: normal speech Thought Content: normal thought content Judgement: judgement good Debridement Note Debridement Note Wound debrided: Right fifth toe plantar Type of Debridement: Excisional debridement Anesthesia Used: 5% Lidocaine Gel Depth: Down to and including healthy tissue Percentage of wound debrided: 100 Instrument Used: 7mm curette and - (Nippers) Tissue Removed: Callus fibrin devitalized tissue Severity: Limited To Skin Breakdown Amount of bleeding with debridement: Mild Bleeding Controlled with: Compression and gauze Patient tolerated procedure: Patient tolerated procedure well Post-Debridement Measurements and Additional Note: Post-Debridement Measurements/Treatment JONNY - Nurse 1 - General Ulcer Assessment Start: 04/21/22 08:09 Freq: Status: Active Protocol: REMA Activity Type Activity Date Activity User E-Sign Co-Sign Detail Recorded Client Recorded Date Recorded By Document 04/21/22 08:10 NEEMA [id number] 04/21/22 08:19 NEEMA 04/21/22 08:10 JONNY - Today's Visit Information Type of service Initial Visit Arrival Mode Ambulatory Patient Identification Verified (Name & Yes ) Vital Signs Temperature (97.8 F-99.1 F) 96.8 F L Temperature Source Temporal Pulse Rate (60-100) 76 Pulse Location Monitor Blood Pressure (90/60-120/80) 154/80 H Blood Pressure Mean (mm Hg) 104 Source Monitor Position Semi-Fowlers Blood Pressure Location Left Arm History Since Last Visit- (Skip if this is Patient's initial visit) Have you changed medications since your No last visit? Any new allergies or adverse reactions No Had a fall/change in ADL's that may No increase risk of falls Signs or symptoms of abuse and/or No neglect since last visit Have you been in the hospital since your No last visit? Has dressing in place as prescribed No Has compression in place as prescribed N/A Has offloadiing in place as prescribed N/A Experienced any changes in pain level or No management Left Footwear Regular Shoe Right Footwear Regular Shoe Pain Scale: 0-10 Numeric Is Patient Pain Free? Yes - Nurse 1 - General Ulcer Measurement Start: 04/21/22 08:09 Freq: Status: Active Protocol: Activity Type Activity Date Activity User E-Sign Co-Sign Detail Recorded Client Recorded Date Recorded By Document 04/21/22 08:10 NEEMA [id number] 04/21/22 08:19 NEEMA 04/21/22 08:10 Wound Center Nurse 1 #8 Left 2nd Toe -Current Size (cm) - Length 0.3 -Current Size (cm) - Width 0.4 -Current Size (cm) - Depth 0.1 -Total Square Cm 0.12 -Exudate Amt Small -Exudate Type Serosanguineous -Wound Margin Distinct, Outline Attached -Granulation Amt Large (67-100%) -Granulation Quality Red -Texture (Angie-wound Skin Appearance) Assessed,Callus ,Scarring -Moisture (Angie-wound Skin Appearance) No Abnormality, Assessed -Color (Angie-wound Skin Appearance) Assessed,Not Assessed -Temperature (Angie-wound Skin No Abnormality Appearance) (Pt Warm) -Tenderness on Palpation (Angie-wound No Skin Appearance) -Ulcer Cleansing Rinsed/ Irrigated with Saline -Foul Odor after Cleansing No -Anesthetic Used 5% Lidocaine Gel #7 Left plantar -Current Size (cm) - Length 1.2 -Current Size (cm) - Width 1.8 -Current Size (cm) - Depth 0.8 -Total Square Cm 2.16 -Exudate Amt Small -Exudate Type Serosanguineous -Wound Margin Distinct, Outline Attached -Granulation Amt Large (67-100%) -Granulation Quality Red -Texture (Angie-wound Skin Appearance) Assessed,Callus -Moisture (Angie-wound Skin Appearance) No Abnormality, Assessed -Color (Angie-wound Skin Appearance) No Abnormality, Assessed -Temperature (Angie-wound Skin No Abnormality Appearance) (Pt Warm) -Tenderness on Palpation (Angie-wound No Skin Appearance) -Ulcer Cleansing Rinsed/ Irrigated with Saline -Foul Odor after Cleansing No -Anesthetic Used 5% Lidocaine Gel #6 Right 5th Toe -Current Size (cm) - Length 0.8 -Current Size (cm) - Width 1 -Current Size (cm) - Depth 0.1 -Total Square Cm 0.8 -Exudate Amt Medium -Exudate Type Serosanguineous -Wound Margin Distinct, Outline Attached -Granulation Amt Medium (34-66%) -Granulation Quality [place] -Necrosis Amt Small (1-33%) -Necrotic Tissue Type Adherent Slough -Texture (Angie-wound Skin Appearance) Assessed,Callus ,Scarring -Moisture (Angie-wound Skin Appearance) No Abnormality, Assessed -Color (Angie-wound Skin Appearance) No Abnormality, Assessed -Temperature (Angie-wound Skin No Abnormality Appearance) (Pt Warm) -Tenderness on Palpation (Angie-wound No Skin Appearance) -Ulcer Cleansing Rinsed/ Irrigated with Saline -Anesthetic Used 5% Lidocaine Gel Right Calf (cm) 39 Right Ankle (cm) 25.5 Left Calf (cm) 38 Left Ankle (cm) 28.5 WC - Nurse 2 - General Ulcer CM Notes Start: 04/21/22 08:09 Freq: Status: Active Protocol: Activity Type Activity Date Activity User E-Sign Co-Sign Detail Recorded Client Recorded Date Recorded By Document 04/21/22 08:34 MW [id number] 04/21/22 08:49 MW 04/21/22 08:34 Wound Center Nurse 2 #8 Left 2nd Toe -Time 08:34 -Correct Patient Yes -Correct Side, Site, Position Yes -Correct Procedure Yes -Procedure Performed Yes -Type of Procedure Debridement -Clinical Debridement Subcutaneous -Tissue Removed Subcutaneous -Post Debridement (cm) - Length 0.5 -Post Debridement (cm) - Width 0.5 -Post Debridement (cm) - Depth 0.1 -Total Square (Post) (cm) 0.25 -Area of Debridement (cm) - Length 0.5 -Area of Debridement (cm) - Width 0.5 -Total Square (Area) (cm) 0.25 -Tunneling No -Undermining/Tunneling No -Circular Undermining No -Wound/Ulcer Outcome Not Healed -Ulcer Cleansing Rinsed/ Irrigated with Saline -Foul Odor after Cleansing No -Bioengineered Tissue No -Bleeding Controlled with Pressure -Treatment Response Procedure Tolerated Well -Offloading No -Debridement - Subq, 1st 20sq cm Yes #7 Left plantar -Time 08:35 -Correct Patient Yes -Correct Side, Site, Position Yes -Correct Procedure Yes -Procedure Performed Yes -Type of Procedure Debridement -Clinical Debridement Subcutaneous -Tissue Removed Subcutaneous -Post Debridement (cm) - Length 2.0 -Post Debridement (cm) - Width 3.0 -Post Debridement (cm) - Depth 0.2 -Total Square (Post) (cm) 6.00 -Area of Debridement (cm) - Length 2.0 -Area of Debridement (cm) - Width 3.0 -Total Square (Area) (cm) 6.00 -Tunneling No -Undermining/Tunneling No -Circular Undermining No -Wound/Ulcer Outcome Not Healed -Ulcer Cleansing Rinsed/ Irrigated with Saline -Foul Odor after Cleansing No -Bioengineered Tissue No -Bleeding Controlled with Pressure -Treatment Response Procedure Tolerated Well -Offloading No -Debridement - Subq, 1st 20sq cm No #6 Right 5th Toe -Time 08:35 -Correct Patient Yes -Correct Side, Site, Position Yes -Correct Procedure Yes -Procedure Performed Yes -Type of Procedure Debridement -Clinical Debridement Subcutaneous -Tissue Removed Subcutaneous -Post Debridement (cm) - Length 1.0 -Post Debridement (cm) - Width 1.0 -Post Debridement (cm) - Depth 0.1 -Total Square (Post) (cm) 1.00 -Area of Debridement (cm) - Length 1.0 -Area of Debridement (cm) - Width 1.0 -Total Square (Area) (cm) 1.00 -Tunneling No -Undermining/Tunneling No -Circular Undermining No -Wound/Ulcer Outcome Not Healed -Ulcer Cleansing Rinsed/ Irrigated with Saline -Foul Odor after Cleansing No -Bioengineered Tissue No -Bleeding Controlled with Pressure -Treatment Response Procedure Tolerated Well -Offloading No -Debridement - Subq, 1st 20sq cm No Pain Scale: 0-10 Numeric Is Patient Pain Free? Yes - Nurse 3 - General Ulcer D/C NN Start: 04/21/22 08:09 Freq: Status: Active Protocol: Activity Type Activity Date Activity User E-Sign Co-Sign Detail Recorded Client Recorded Date Recorded By Document 04/21/22 08:49 NEEMA [id number] 04/21/22 08:50 NEEMA 04/21/22 08:49 Wound Care Nurse 3 #8 Left 2nd Toe -Ulcer Cleansing Rinsed/ Irrigated with Saline -Primary Dressing Applied Aquacel Extra -Primary Dressing Covered/Secured with Dry Gauze, Secured with Tape -Aquacel Extra 1 #7 Left plantar -Ulcer Cleansing Rinsed/ Irrigated with Saline -Primary Dressing Covered/Secured with Dry Gauze, Secured with Tape #6 Right 5th Toe -Ulcer Cleansing Rinsed/ Irrigated with Saline -Primary Dressing Covered/Secured with Dry Gauze, Secured with Tape Pain Scale: 0-10 Numeric Is Patient Pain Free? Yes WC - Visit Discharge Discharge Condition Stable Ambulatory Status Ambulatory Transportation Private Auto Additional Wound Wound debrided: Left second toe plantar Laterality: Left Wound Grade/Stage: Stage II Type of Debridement: Excisional debridement Anesthesia Used: 5% Lidocaine Gel Depth: Down to and including healthy tissue Percentage of wound debrided: 100 Instrument Used: 5mm curette and - (Nippers) Tissue Removed: Callus fibrin devitalized tissue Severity: Limited To Skin Breakdown Amount of bleeding with debridement: Mild Bleeding Controlled with: Compression and gauze Patient tolerated procedure: Patient tolerated procedure well Additional Wound Wound debrided: Left great toe plantar side Wound Grade/Stage: Stage II Type of Debridement: Excisional debridement Anesthesia Used: 5% Lidocaine Gel Depth: Down to and including healthy tissue Percentage of wound debrided: 100 Instrument Used: 5mm curette Tissue Removed: Devitalized tissue and fibrin Severity: Limited To Skin Breakdown Amount of bleeding with debridement: Mild Bleeding Controlled with: Compression and gauze Patient tolerated procedure: Patient tolerated procedure well Assessment/Plan Assessment/Plan (1) 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 (2) Decubitus ulcer limited to breakdown of skin (stage 2): CODE(S): L89.92 - Pressure ulcer of unspecified site, stage 2 QUALIFIERS: Pressure injury location: toe Laterality: left Qualified Code(s): L89.892 - Pressure ulcer of other site, stage 2 PLAN: Wash all areas with antibacterial soap apply Aquacel extra to wound bases cover with gauze and tape We will call with the results of the cultures obtained Follow-up in 1 week
--- NOTE | 2022-04-21 10:13 | RAD_ITS ---
EXAM: XR LEFT FOOT COMPLETE, 3 OR MORE VIEWS CLINICAL INDICATION: OSTEOMYELITIS TECHNIQUE: Frontal, lateral and oblique views of the left foot. This report was created using [employer] report generation technology. COMPARISON: Sep 17 2021 11:14am FINDINGS: BONES/JOINTS: There is absence head and neck of the third proximal phalanx either due to prior amputation or sequela from chronic osteomyelitis. The distal phalanx of the fourth toe is absent due to prior amputation. Mild degenerative findings of the first metatarsal phalangeal joint. Stable degenerative findings of the first interphalangeal joint. There is a calcaneal spur. No acute fracture. No subluxation. Normal alignment. No sclerotic or destructive changes observed. SOFT TISSUES: Soft tissue swelling around the second digit. This suggests an infectious process. No radiopaque foreign body. RAD/Foot min 3 Views IMPRESSION: Soft tissue swelling around the second digit. This suggests an infectious process. Electronically Signed: Hernando Jarvis MD at 16:39 EDT ,
--- NOTE | 2022-04-21 10:13 | RAD_ITS ---
EXAM: XR RIGHT FOOT COMPLETE, 3 OR MORE VIEWS CLINICAL INDICATION: OSTEOMYELITIS TECHNIQUE: Frontal, lateral and oblique views of the right foot. This report was created using [employer] report generation technology. COMPARISON: 02.22.22 FINDINGS: BONES/JOINTS: There is a plantar calcaneal spur. Normal visualized subtalar, talonavicular, calcaneocuboid, tarsal and tarsometatarsal articulations. Normal metatarsi. There is degenerative arthrosis of the metatarsophalangeal joint of the hallux . Normal tibial and fibular sesamoid bones. The patient is status post resection of the distal phalanx of the great toe. Normal second through fifth metatarsophalangeal joints. Status post resection of the distal phalanx and proximal phalanx of the third toe. Flexion deformity of the fourth and fifth proximal interphalangeal joints. No acute fracture. No subluxation. Normal alignment. No sclerotic or destructive changes observed. SOFT TISSUES: Soft tissue swelling. Soft tissue swelling overlying the proximal phalanx of the great toe as well as the second toe. No radiopaque foreign body. RAD/Foot min 3 Views IMPRESSION: Status post amputation of the distal phalanges as noted above. No significant change from prior. Electronically Signed: Hernando Jarvis MD at 19:35 EDT ,
[2022-04-28 10:06] VITALS: BP 150/82; PULSE 84; RESP 16; TEMP 36.4
--- NOTE | 2022-04-28 12:03 | PN.PCM_ITS ---
History of Present Illness Date of Service: 04/28/22 Chief Complaint: Follow-up on right fifth toe plantar side left plantar great toe and left plantar second toe. History of Wound: 76-year-old white male with previous history of amputations of the toes. Appears with increase in wounds to the toes for the last 6 weeks at least. He has been seen by his own space studies faculty member Dr. Nguyen and he referred him to here. He is currently using Aquacel to his wounds. His usually helps with dressing changes without a problem. Progress of Wound: Left plantar great toe started as a blister and has progressed to an open wound debrided most of the discoloration and maceration down to new skin. Since all of the wounds are greater than 1 month old to be applied for epi fix which he was approved for. Noted on the left plantar great toe some redness going up into the other toes we got cultures and was positive for Pseudomonas and has been started on antibiotics that he has not started yet. X-rays were negative. On the right fifth toe and the left second toe a lot of callus with open wounds in the center. Debrided most of the callus off with nippers and down to the new skin again. Subjective Subjective Patient saw his family doctor was started on doxycycline and I told him he needs to start the clindamycin that I ordered because that was what the cultures say will heal him not Doxy he can hold on that he is guessing I am going according to cultures. Patient understands and will start the clindamycin today Objective Data Objective Data Again I reiterated how he needs to be on the proper antibiotics for his health concerns and foot healing. Still developing a lot of callus around all of his wound base. All measurements are smaller. We will apply epi fix #1 today and hopefully see some better healing with the antibiotic also Vital Signs: Vital Signs Temp Pulse Resp BP 97.5 F L 84 16 150/82 H 04/28/22 10:06 04/28/22 10:06 04/28/22 10:06 04/28/22 10:06 Lab / Micro Data Micro: Microbiology 04/21/22 08:40 Wound Abcess - Plantar Gram Stain - Final 04/21/22 08:40 Wound Abcess - Plantar Wound Culture - Final Staphylococcus aureus Staphylococcus haemolyticus 04/21/22 08:40 Wound Abcess - Plantar Anaerobic Culture - Final No anaerobic bacteria isolated. Physical Exam Const oriented x3 General Appearance: cooperative Exam Limitations: no limitations Resp normal respiratory effort Effort and Inspection: able to speak in complete sentences Auscultation: clear to auscultation bilaterally Cardio regular rate and regular rhythm Palpation: normal PMI Rate: regular rate Rhythm: regular rhythm GI Auscultation: normoactive bowel sounds Palpation: soft and no hepatosplenomegaly Extremity normal to inspection General Extremity: normal exam except as noted Skin no rashes or lesions noted Wound Narrative: Open wounds with callus around on the right fifth toe plantar left second toe plantar and left great toe plantar with all with open wounds also. Neuro oriented x3 Psych Appearance: grossly normal Speech: normal speech Thought Content: normal thought content Judgement: judgement good Debridement Note Debridement Note Wound debrided: Left plantar foot decubitus ulcer Laterality: Left Wound Grade/Stage: Stage II Type of Debridement: Excisional debridement Anesthesia Used: 4% Lidocaine Solution and 5% Lidocaine Gel Depth: in the subcutaneous layer Percentage of wound debrided: 100 Instrument Used: 5mm curette and #15 blade Tissue Removed: Devitalized tissue and fibrin Severity: Fat Layer Exposed Amount of bleeding with debridement: Mild Bleeding Controlled with: Compression and gauze Patient tolerated procedure: Patient tolerated procedure well Post-Debridement Measurements and Additional Note: Post-Debridement Measurements/Treatment - Nurse 1 - General Ulcer Assessment Start: 04/21/22 08:09 Freq: Status: Active Protocol: JONNY.LIDA Activity Type Activity Date Activity User E-sign Co-sign Detail Recorded Client Recorded Date Recorded By Document 04/21/22 08:10 KR [id number] 04/21/22 08:19 KR Document 04/28/22 10:06 ML [id number] 04/28/22 10:22 ML 04/21/22 04/28/22 08:10 10:06 - Today's Visit Information Type of service Initial Visit Follow-up Visit (Physician/AIR LIAISON AND SPECIAL STAFF ) Arrival Mode Ambulatory Ambulatory Transfer Assistance None Patient Identification Verified (Name & Yes Yes ) Patient Requires Transmission-Based No Precautions Safety Precautions NA Vital Signs Temperature (97.8 F-99.1 F) 96.8 F L 97.5 F L Temperature Source Temporal Temporal Pulse Rate (60-100) 76 84 Pulse Location Monitor Monitor Respiratory Rate (12-18) 16 Respiratory rate source Observation Blood Pressure (90/60-120/80) 154/80 H 150/82 H Blood Pressure Mean (mm Hg) 104 104 Source Monitor Monitor Position Semi-Fowlers Blood Pressure Location Left Arm History Since Last Visit- (Skip if this is Patient's initial visit) Have you changed medications since your No No last visit? Any new allergies or adverse reactions No No Had a fall/change in ADL's that may No No increase risk of falls Signs or symptoms of abuse and/or No No neglect since last visit Have you been in the hospital since your No No last visit? Has dressing in place as prescribed No Yes Has compression in place as prescribed N/A N/A Has offloadiing in place as prescribed N/A N/A Experienced any changes in pain level or No No management Left Footwear Regular Shoe Regular Shoe Right Footwear Regular Shoe Regular Shoe Pain Scale: 0-10 Numeric Is Patient Pain Free? Yes Yes WC - Nurse 1 - General Ulcer Measurement Start: 04/21/22 08:09 Freq: Status: Active Protocol: Activity Type Activity Date Activity User E-sign Co-sign Detail Recorded Client Recorded Date Recorded By Document 04/21/22 08:10 KR [id number] 04/21/22 08:19 KR Document 04/28/22 10:06 [id number] 04/28/22 10:22 ML 04/21/22 04/28/22 08:10 10:06 Wound Center Nurse 1 #8 Left 2nd Toe -Current Size (cm) - Length 0.3 0.1 -Current Size (cm) - Width 0.4 0.1 -Current Size (cm) - Depth 0.1 0.1 -Total Square Cm 0.12 0.01 -Exudate Amt Small None Present -Exudate Type Serosanguineous -Wound Margin Distinct, Distinct, Outline Outline Attached Attached -Granulation Amt Large (67-100%) Large (67-100%) -Granulation Quality Red -Slough/Fibrin No -Necrosis Amt None Present (0 %) -Texture (Angie-wound Skin Appearance) Assessed,Callus Assessed ,Scarring -Moisture (Angie-wound Skin Appearance) No Abnormality, Assessed Assessed -Color (Angie-wound Skin Appearance) Assessed,Not Assessed Assessed -Temperature (Angie-wound Skin No Abnormality No Abnormality Appearance) (Pt Warm) (Pt Warm) -Tenderness on Palpation (Angie-wound No No Skin Appearance) -Ulcer Cleansing Rinsed/ Soap and Water Irrigated with Saline -Foul Odor after Cleansing No No -Anesthetic Used 5% Lidocaine 5% Lidocaine Gel Gel #7 Left plantar -Current Size (cm) - Length 1.2 3 -Current Size (cm) - Width 1.8 2.8 -Current Size (cm) - Depth 0.8 0.2 -Total Square Cm 2.16 8.4 -Exudate Amt Small Medium -Exudate Type Serosanguineous Purulent -Wound Margin Distinct, Distinct, Outline Outline Attached Attached -Granulation Amt Large (67-100%) Medium (34-66%) -Granulation Quality Red -Slough/Fibrin Yes -Necrosis Amt Medium (34-66%) -Necrotic Tissue Type Adherent Slough -Texture (Angie-wound Skin Appearance) Assessed,Callus Assessed -Moisture (Angie-wound Skin Appearance) No Abnormality, Assessed Assessed -Color (Angie-wound Skin Appearance) No Abnormality, Assessed Assessed -Temperature (Angie-wound Skin No Abnormality No Abnormality Appearance) (Pt Warm) (Pt Warm) -Tenderness on Palpation (Angie-wound No No Skin Appearance) -Ulcer Cleansing Rinsed/ Soap and Water Irrigated with Saline -Foul Odor after Cleansing No No -Anesthetic Used 5% Lidocaine 5% Lidocaine Gel Gel #6 Right 5th Toe -Current Size (cm) - Length 0.8 2 -Current Size (cm) - Width 1 2 -Current Size (cm) - Depth 0.1 0.2 -Total Square Cm 0.8 4 -Exudate Amt Medium Medium -Exudate Type Serosanguineous Serous -Wound Margin Distinct, Distinct, Outline Outline Attached Attached -Granulation Amt Medium (34-66%) Small (1-33%) -Granulation Quality [place] -Slough/Fibrin Yes -Necrosis Amt Small (1-33%) Medium (34-66%) -Necrotic Tissue Type Adherent Slough Eschar -Texture (Angie-wound Skin Appearance) Assessed,Callus Assessed ,Scarring -Moisture (Angie-wound Skin Appearance) No Abnormality, Assessed Assessed -Color (Angie-wound Skin Appearance) No Abnormality, Assessed Assessed -Temperature (Angie-wound Skin No Abnormality No Abnormality Appearance) (Pt Warm) (Pt Warm) -Tenderness on Palpation (Angie-wound No No Skin Appearance) -Ulcer Cleansing Rinsed/ Soap and Water Irrigated with Saline -Foul Odor after Cleansing No -Anesthetic Used 5% Lidocaine 5% Lidocaine Gel Gel Right Calf (cm) 39 Right Ankle (cm) 25.5 Left Calf (cm) 38 Left Ankle (cm) 28.5 WC - Nurse 2 - General Ulcer CM Notes Start: 04/21/22 08:09 Freq: Status: Active Protocol: Activity Type Activity Date Activity User E-sign Co-sign Detail Recorded Client Recorded Date Recorded By Document 04/21/22 08:34 MW [id number] 04/21/22 08:49 MW Document 04/28/22 10:30 MW [id number] 04/28/22 10:50 MW 04/21/22 04/28/22 08:34 10:30 Wound Center Nurse 2 #8 Left 2nd Toe -Time 08:34 10:31 -Correct Patient Yes Yes -Correct Side, Site, Position Yes Yes -Correct Procedure Yes Yes -Procedure Performed Yes Yes -Type of Procedure Debridement Debridement -Clinical Debridement Subcutaneous Subcutaneous -Tissue Removed Subcutaneous Subcutaneous -Post Debridement (cm) - Length 0.5 0.3 -Post Debridement (cm) - Width 0.5 0.3 -Post Debridement (cm) - Depth 0.1 0.2 -Total Square (Post) (cm) 0.25 0.09 -Area of Debridement (cm) - Length 0.5 0.3 -Area of Debridement (cm) - Width 0.5 0.3 -Total Square (Area) (cm) 0.25 0.09 -Tunneling No No -Undermining/Tunneling No No -Circular Undermining No No -Wound/Ulcer Outcome Not Healed Not Healed -Ulcer Cleansing Rinsed/ Rinsed/ Irrigated with Irrigated with Saline Saline -Foul Odor after Cleansing No No -Bioengineered Tissue No No -Bleeding Controlled with Pressure Pressure -Treatment Response Procedure Procedure Tolerated Well Tolerated Well -Offloading No No -Debridement - Subq, 1st 20sq cm Yes Yes #7 Left plantar -Time 08:35 10:31 -Correct Patient Yes Yes -Correct Side, Site, Position Yes Yes -Correct Procedure Yes Yes -Procedure Performed Yes Yes -Type of Procedure Debridement Debridement -Clinical Debridement Subcutaneous Subcutaneous -Tissue Removed Subcutaneous Subcutaneous -Post Debridement (cm) - Length 2.0 1.5 -Post Debridement (cm) - Width 3.0 2.0 -Post Debridement (cm) - Depth 0.2 0.1 -Total Square (Post) (cm) 6.00 3.00 -Area of Debridement (cm) - Length 2.0 1.5 -Area of Debridement (cm) - Width 3.0 2.0 -Total Square (Area) (cm) 6.00 3.00 -Tunneling No No -Undermining/Tunneling No No -Circular Undermining No No -Wound/Ulcer Outcome Not Healed Not Healed -Ulcer Cleansing Rinsed/ Rinsed/ Irrigated with Irrigated with Saline Saline -Foul Odor after Cleansing No No -Bioengineered Tissue No Yes -Type of Bioengineered Tissue Epifix -Expiration Date 01/12/27 -Product Lot Number [id number] -Percent Used 100 -Lot number of Saline Used [id number] -Bleeding Controlled with Pressure Pressure -Treatment Response Procedure Procedure Tolerated Well Tolerated Well -Offloading No No -Debridement - Subq, 1st 20sq cm No No -Apply Skin Sub - 1st 25 sq cm - Feet 1 -Epifix (per sq cm) 4 #6 Right 5th Toe -Time 08:35 10:31 -Correct Patient Yes Yes -Correct Side, Site, Position Yes Yes -Correct Procedure Yes Yes -Procedure Performed Yes Yes -Type of Procedure Debridement Debridement -Clinical Debridement Subcutaneous Subcutaneous -Tissue Removed Subcutaneous Subcutaneous -Post Debridement (cm) - Length 1.0 1.0 -Post Debridement (cm) - Width 1.0 1.0 -Post Debridement (cm) - Depth 0.1 0.1 -Total Square (Post) (cm) 1.00 1.00 -Area of Debridement (cm) - Length 1.0 1.0 -Area of Debridement (cm) - Width 1.0 1.0 -Total Square (Area) (cm) 1.00 1.00 -Tunneling No No -Undermining/Tunneling No No -Circular Undermining No No -Wound/Ulcer Outcome Not Healed Not Healed -Ulcer Cleansing Rinsed/ Rinsed/ Irrigated with Irrigated with Saline Saline -Foul Odor after Cleansing No No -Bioengineered Tissue No No -Bleeding Controlled with Pressure Pressure -Treatment Response Procedure Procedure Tolerated Well Tolerated Well -Offloading No No -Debridement - Subq, 1st 20sq cm No No Pain Scale: 0-10 Numeric Is Patient Pain Free? Yes Yes WC - Nurse 3 - General Ulcer D/C NN Start: 04/21/22 08:09 Freq: Status: Active Protocol: Activity Type Activity Date Activity User E-sign Co-sign Detail Recorded Client Recorded Date Recorded By Document 04/21/22 08:49 KR [id number] 04/21/22 08:50 KR Document 04/28/22 11:08 KR [id number] 04/28/22 11:08 KR 04/21/22 04/28/22 08:49 11:08 Wound Care Nurse 3 #8 Left 2nd Toe -Ulcer Cleansing Rinsed/ Irrigated with Saline -Primary Dressing Applied Aquacel Extra Aquacel Extra -Primary Dressing Covered/Secured with Dry Gauze, Dry Gauze,Dry Secured with Gauze & Roll Tape Gauze,Secured with Tape -Aquacel Extra 1 1 #7 Left plantar -Ulcer Cleansing Rinsed/ Irrigated with Saline -Primary Dressing Covered/Secured with Dry Gauze, Dry Gauze, Secured with Secured with Tape Tape #6 Right 5th Toe -Ulcer Cleansing Rinsed/ Irrigated with Saline -Primary Dressing Covered/Secured with Dry Gauze, Dry Gauze, Secured with Secured with Tape Tape Pain Scale: 0-10 Numeric Is Patient Pain Free? Yes Yes - Visit Discharge Discharge Condition Stable Stable Ambulatory Status Ambulatory Ambulatory Transportation Private Auto Private Auto Additional Wound Wound debrided: Left second toe plantar side decubitus ulcer Laterality: Left Wound Grade/Stage: Stage II Type of Debridement: Excisional debridement Anesthesia Used: 5% Lidocaine Gel Depth: in the subcutaneous layer Percentage of wound debrided: 100 Instrument Used: 5mm curette and - (Nippers) Tissue Removed: Devitalized tissue and fibrin Severity: Fat Layer Exposed Amount of bleeding with debridement: Mild Bleeding Controlled with: Compression and gauze Patient tolerated procedure: Patient tolerated procedure well Additional Wound Wound debrided: Right fifth toe decubitus ulcer plantar side Laterality: Right Wound Grade/Stage: Stage II Type of Debridement: Excisional debridement Anesthesia Used: 5% Lidocaine Gel Depth: Down to and including healthy tissue and in the subcutaneous layer Percentage of wound debrided: 100 Instrument Used: 5mm curette and - (Nippers) Tissue Removed: Devitalized and fibrin Severity: Fat Layer Exposed Amount of bleeding with debridement: Mild Bleeding Controlled with: Compression and gauze Patient tolerated procedure: Patient tolerated procedure well Assessment/Plan Assessment/Plan (1) 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 (2) Decubitus ulcer limited to breakdown of skin (stage 2): CODE(S): L89.92 - Pressure ulcer of unspecified site, stage 2 QUALIFIERS: Pressure injury location: toe Laterality: left Qualified Code(s): L89.892 - Pressure ulcer of other site, stage 2 PLAN: Epi fix #1 applied to all areas covered with wound veil and Steri-Strips gauze and tape Patient is not to get them wet and follow-up in 1 week
[2022-05-05 08:16] VITALS: BP 151/69; PULSE 69; TEMP 36.1
--- NOTE | 2022-05-05 09:37 | PN.PCM_ITS ---
History of Present Illness Date of Service: 05/05/22 Chief Complaint: Follow-up on right fifth toe plantar side left plantar great toe and left plantar second toe. History of Wound: 76-year-old white male with previous history of amputations of the toes. Appears with increase in wounds to the toes for the last 6 weeks at least. He has been seen by his own machine riveter Dr. Nguyen and he referred him to here. He is currently using Aquacel to his wounds. His usually helps with dressing changes without a problem. Progress of Wound: Left second toe is almost healed probably 1 more week with the epi fix right fifth toe still open but smaller healing is occurring with epi fix. Left plantar doing very well with epi fix and is measuring smaller. Again debrided a lot of callus and macerated tissue around the wound. Subjective Subjective No concerns per or Objective Data Objective Data As stated above in progress notes patient is doing well tolerating epi fix #2 today no sign of infection or swelling or serious illnesses. Vital Signs: Vital Signs Temp Pulse Resp BP 97.0 F L 69 16 151/69 H 05/05/22 08:16 05/05/22 08:16 04/28/22 10:06 05/05/22 08:16 Lab / Micro Data Micro: Microbiology 04/21/22 08:40 Wound Abcess - Plantar Gram Stain - Final 04/21/22 08:40 Wound Abcess - Plantar Wound Culture - Final Staphylococcus aureus Staphylococcus haemolyticus 04/21/22 08:40 Wound Abcess - Plantar Anaerobic Culture - Final No anaerobic bacteria isolated. Physical Exam Const oriented x3 General Appearance: cooperative Exam Limitations: no limitations Resp normal respiratory effort Effort and Inspection: able to speak in complete sentences Auscultation: clear to auscultation bilaterally Cardio regular rate and regular rhythm Palpation: normal PMI Rate: regular rate Rhythm: regular rhythm GI Auscultation: normoactive bowel sounds Palpation: soft and no hepatosplenomegaly Extremity normal to inspection General Extremity: normal exam except as noted Skin no rashes or lesions noted Wound Narrative: Open wounds with callus around on the right fifth toe plantar left second toe plantar and left great toe plantar with all with open wounds also. Neuro oriented x3 Psych Appearance: grossly normal Speech: normal speech Thought Content: normal thought content Judgement: judgement good Debridement Note Debridement Note Wound debrided: Left second toe blisters now open Wound Grade/Stage: Stage II Type of Debridement: Excisional debridement Anesthesia Used: 4% Lidocaine Solution and 5% Lidocaine Gel Depth: Down to and including healthy tissue Percentage of wound debrided: 100 Instrument Used: 5mm curette Tissue Removed: Fibrin and callus Severity: Limited To Skin Breakdown Amount of bleeding with debridement: Mild Patient tolerated procedure: Patient tolerated procedure well Post-Debridement Measurements and Additional Note: Post-Debridement Measurements/Treatment - Nurse 1 - General Ulcer Assessment Start: 04/21/22 08:09 Freq: Status: Active Protocol: REMA Activity Type Activity Date Activity User E-sign Co-sign Detail Recorded Client Recorded Date Recorded By Document 04/21/22 08:10 KR [id number] 04/21/22 08:19 KR Document 04/28/22 10:06 ML [id number] 04/28/22 10:22 ML Document 05/05/22 08:16 KR [id number] 05/05/22 08:20 KR 04/21/22 04/28/22 05/05/22 08:10 10:06 08:16 - Today's Visit Information Type of service Initial Visit Follow-up Visit Follow-up Visit (Physician/SOCIAL SECURITY BENEFITS INTERVIEWER (Physician/SOCIAL SECURITY BENEFITS INTERVIEWER ) ) Arrival Mode Ambulatory Ambulatory Ambulatory Transfer Assistance None Patient Identification Verified (Name & Yes Yes Yes ) Patient Requires Transmission-Based No Precautions Safety Precautions NA Vital Signs Temperature (97.8 F-99.1 F) 96.8 F L 97.5 F L 97.0 F L Temperature Source Temporal Temporal Temporal Pulse Rate (60-100) 76 84 69 Pulse Location Monitor Monitor Monitor Respiratory Rate (12-18) 16 Respiratory rate source Observation Blood Pressure (90/60-120/80) 154/80 H 150/82 H 151/69 H Blood Pressure Mean (mm Hg) 104 104 96 Source Monitor Monitor Monitor Position Semi-Fowlers Semi-Fowlers Blood Pressure Location Left Arm Right Arm History Since Last Visit- (Skip if this is Patient's initial visit) Have you changed medications since your No No No last visit? Any new allergies or adverse reactions No No No Had a fall/change in ADL's that may No No No increase risk of falls Signs or symptoms of abuse and/or No No No neglect since last visit Have you been in the hospital since your No No No last visit? Has dressing in place as prescribed No Yes Yes Has compression in place as prescribed N/A N/A N/A Has offloadiing in place as prescribed N/A N/A N/A Experienced any changes in pain level or No No No management Left Footwear Regular Shoe Regular Shoe Regular Shoe Right Footwear Regular Shoe Regular Shoe Regular Shoe Pain Scale: 0-10 Numeric Is Patient Pain Free? Yes Yes Yes WC - Nurse 1 - General Ulcer Measurement Start: 04/21/22 08:09 Freq: Status: Active Protocol: Activity Type Activity Date Activity User E-sign Co-sign Detail Recorded Client Recorded Date Recorded By Document 04/21/22 08:10 KR [id number] 04/21/22 08:19 KR Document 04/28/22 10:06 ML [id number] 04/28/22 10:22 ML Document 05/05/22 08:16 KR [id number] 05/05/22 08:20 KR 04/21/22 04/28/22 05/05/22 08:10 10:06 08:16 Wound Center Nurse 1 #8 Left 2nd Toe -Current Size (cm) - Length 0.3 0.1 0.2 -Current Size (cm) - Width 0.4 0.1 0.2 -Current Size (cm) - Depth 0.1 0.1 0.1 -Total Square Cm 0.12 0.01 0.04 -Exudate Amt Small None Present Small -Exudate Type Serosanguineous Serosanguineous -Wound Margin Distinct, Distinct, Distinct, Outline Outline Outline Attached Attached Attached -Granulation Amt Large (67-100%) Large (67-100%) Small (1-33%) -Granulation Quality Red [place] -Slough/Fibrin No -Necrosis Amt None Present (0 None Present (0 %) %) -Texture (Angie-wound Skin Appearance) Assessed,Callus Assessed Assessed, ,Scarring Scarring -Moisture (Angie-wound Skin Appearance) No Abnormality, Assessed No Abnormality, Assessed Assessed -Color (Angie-wound Skin Appearance) Assessed,Not Assessed No Abnormality, Assessed Assessed -Temperature (Angie-wound Skin No Abnormality No Abnormality No Abnormality Appearance) (Pt Warm) (Pt Warm) (Pt Warm) -Tenderness on Palpation (Angie-wound No No No Skin Appearance) -Ulcer Cleansing Rinsed/ Soap and Water Rinsed/ Irrigated with Irrigated with Saline Saline -Foul Odor after Cleansing No No No -Anesthetic Used 5% Lidocaine 5% Lidocaine 4% Lidocaine Gel Gel Solution #7 Left plantar -Current Size (cm) - Length 1.2 3 1.6 -Current Size (cm) - Width 1.8 2.8 1.6 -Current Size (cm) - Depth 0.8 0.2 0.1 -Total Square Cm 2.16 8.4 2.56 -Exudate Amt Small Medium Small -Exudate Type Serosanguineous Purulent Serosanguineous -Wound Margin Distinct, Distinct, Distinct, Outline Outline Outline Attached Attached Attached -Granulation Amt Large (67-100%) Medium (34-66%) Large (67-100%) -Granulation Quality Red Red -Slough/Fibrin Yes -Necrosis Amt Medium (34-66%) None Present (0 %) -Necrotic Tissue Type Adherent Slough -Texture (Angie-wound Skin Appearance) Assessed,Callus Assessed Assessed,Callus ,Scarring -Moisture (Angie-wound Skin Appearance) No Abnormality, Assessed No Abnormality, Assessed Assessed -Color (Angie-wound Skin Appearance) No Abnormality, Assessed No Abnormality, Assessed Assessed -Temperature (Angie-wound Skin No Abnormality No Abnormality No Abnormality Appearance) (Pt Warm) (Pt Warm) (Pt Warm) -Tenderness on Palpation (Angie-wound No No No Skin Appearance) -Ulcer Cleansing Rinsed/ Soap and Water Rinsed/ Irrigated with Irrigated with Saline Saline -Foul Odor after Cleansing No No No -Anesthetic Used 5% Lidocaine 5% Lidocaine 4% Lidocaine Gel Gel Solution #6 Right 5th Toe -Current Size (cm) - Length 0.8 2 0.5 -Current Size (cm) - Width 1 2 1 -Current Size (cm) - Depth 0.1 0.2 0.1 -Total Square Cm 0.8 4 0.5 -Exudate Amt Medium Medium Small -Exudate Type Serosanguineous Serous Serosanguineous -Wound Margin Distinct, Distinct, Distinct, Outline Outline Outline Attached Attached Attached -Granulation Amt Medium (34-66%) Small (1-33%) Large (67-100%) -Granulation Quality [place] -Slough/Fibrin Yes -Necrosis Amt Small (1-33%) Medium (34-66%) None Present (0 %) -Necrotic Tissue Type Adherent Slough Eschar -Texture (Angie-wound Skin Appearance) Assessed,Callus Assessed Assessed, ,Scarring Scarring -Moisture (Angie-wound Skin Appearance) No Abnormality, Assessed No Abnormality, Assessed Assessed -Color (Angie-wound Skin Appearance) No Abnormality, Assessed No Abnormality, Assessed Assessed -Temperature (Angie-wound Skin No Abnormality No Abnormality No Abnormality Appearance) (Pt Warm) (Pt Warm) (Pt Warm) -Tenderness on Palpation (Angie-wound No No No Skin Appearance) -Ulcer Cleansing Rinsed/ Soap and Water Rinsed/ Irrigated with Irrigated with Saline Saline -Foul Odor after Cleansing No No -Anesthetic Used 5% Lidocaine 5% Lidocaine 4% Lidocaine Gel Gel Solution Right Calf (cm) 39 Right Ankle (cm) 25.5 Left Calf (cm) 38 Left Ankle (cm) 28.5 WC - Nurse 2 - General Ulcer CM Notes Start: 04/21/22 08:09 Freq: Status: Active Protocol: Activity Type Activity Date Activity User E-sign Co-sign Detail Recorded Client Recorded Date Recorded By Document 04/21/22 08:34 MW [id number] 04/21/22 08:49 MW Document 04/28/22 10:30 MW [id number] 04/28/22 10:50 MW Document 05/05/22 08:27 MW [id number] 05/05/22 08:40 MW 04/21/22 04/28/22 05/05/22 08:34 10:30 08:27 Wound Center Nurse 2 #8 Left 2nd Toe -Time 08:34 10:31 08:28 -Correct Patient Yes Yes Yes -Correct Side, Site, Position Yes Yes Yes -Correct Procedure Yes Yes Yes -Procedure Performed Yes Yes Yes -Type of Procedure Debridement Debridement Debridement -Clinical Debridement Subcutaneous Subcutaneous Subcutaneous -Tissue Removed Subcutaneous Subcutaneous Subcutaneous -Post Debridement (cm) - Length 0.5 0.3 0.4 -Post Debridement (cm) - Width 0.5 0.3 0.1 -Post Debridement (cm) - Depth 0.1 0.2 0.1 -Total Square (Post) (cm) 0.25 0.09 0.04 -Area of Debridement (cm) - Length 0.5 0.3 0.4 -Area of Debridement (cm) - Width 0.5 0.3 0.1 -Total Square (Area) (cm) 0.25 0.09 0.04 -Tunneling No No No -Undermining/Tunneling No No No -Circular Undermining No No No -Wound/Ulcer Outcome Not Healed Not Healed Not Healed -Ulcer Cleansing Rinsed/ Rinsed/ Rinsed/ Irrigated with Irrigated with Irrigated with Saline Saline Saline -Foul Odor after Cleansing No No No -Bioengineered Tissue No No No -Bleeding Controlled with Pressure Pressure Pressure -Treatment Response Procedure Procedure Procedure Tolerated Well Tolerated Well Tolerated Well -Offloading No No No -Debridement - Subq, 1st 20sq cm Yes Yes Yes #7 Left plantar -Time 08:35 10:31 08:28 -Correct Patient Yes Yes Yes -Correct Side, Site, Position Yes Yes Yes -Correct Procedure Yes Yes Yes -Procedure Performed Yes Yes Yes -Type of Procedure Debridement Debridement Debridement -Clinical Debridement Subcutaneous Subcutaneous Subcutaneous -Tissue Removed Subcutaneous Subcutaneous Subcutaneous -Post Debridement (cm) - Length 2.0 1.5 0.5 -Post Debridement (cm) - Width 3.0 2.0 1.7 -Post Debridement (cm) - Depth 0.2 0.1 0.1 -Total Square (Post) (cm) 6.00 3.00 0.85 -Area of Debridement (cm) - Length 2.0 1.5 0.5 -Area of Debridement (cm) - Width 3.0 2.0 1.7 -Total Square (Area) (cm) 6.00 3.00 0.85 -Tunneling No No No -Undermining/Tunneling No No No -Circular Undermining No No No -Wound/Ulcer Outcome Not Healed Not Healed Not Healed -Ulcer Cleansing Rinsed/ Rinsed/ Rinsed/ Irrigated with Irrigated with Irrigated with Saline Saline Saline -Foul Odor after Cleansing No No No -Bioengineered Tissue No Yes Yes -Type of Bioengineered Tissue Epifix Epifix -Expiration Date 01/12/27 01/12/27 -Product Lot Number [id number] -Percent Used 100 100 -Lot number of Saline Used [id number] -Bleeding Controlled with Pressure Pressure Pressure -Treatment Response Procedure Procedure Procedure Tolerated Well Tolerated Well Tolerated Well -Offloading No No No -Debridement - Subq, 1st 20sq cm No No No -Apply Skin Sub - 1st 25 sq cm - Feet 1 1 -Epifix (per sq cm) 4 4 #6 Right 5th Toe -Time 08:35 10:31 08:29 -Correct Patient Yes Yes Yes -Correct Side, Site, Position Yes Yes Yes -Correct Procedure Yes Yes Yes -Procedure Performed Yes Yes Yes -Type of Procedure Debridement Debridement Debridement -Clinical Debridement Subcutaneous Subcutaneous Subcutaneous -Tissue Removed Subcutaneous Subcutaneous Subcutaneous -Post Debridement (cm) - Length 1.0 1.0 0.6 -Post Debridement (cm) - Width 1.0 1.0 1.0 -Post Debridement (cm) - Depth 0.1 0.1 0.1 -Total Square (Post) (cm) 1.00 1.00 0.60 -Area of Debridement (cm) - Length 1.0 1.0 0.6 -Area of Debridement (cm) - Width 1.0 1.0 1.0 -Total Square (Area) (cm) 1.00 1.00 0.60 -Tunneling No No No -Undermining/Tunneling No No No -Circular Undermining No No No -Wound/Ulcer Outcome Not Healed Not Healed Not Healed -Ulcer Cleansing Rinsed/ Rinsed/ Rinsed/ Irrigated with Irrigated with Irrigated with Saline Saline Saline -Foul Odor after Cleansing No No No -Bioengineered Tissue No No No -Bleeding Controlled with Pressure Pressure Pressure -Treatment Response Procedure Procedure Procedure Tolerated Well Tolerated Well Tolerated Well -Offloading No No No -Debridement - Subq, 1st 20sq cm No No No Pain Scale: 0-10 Numeric Is Patient Pain Free? Yes Yes Yes - Nurse 3 - General Ulcer D/C NN Start: 04/21/22 08:09 Freq: Status: Active Protocol: Activity Type Activity Date Activity User E-sign Co-sign Detail Recorded Client Recorded Date Recorded By Document 04/21/22 08:49 KR [id number] 04/21/22 08:50 KR Document 04/28/22 11:08 NEEMA [id number] 04/28/22 11:08 KR Document 05/05/22 09:05 AK [id number] 05/05/22 09:06 AK 04/21/22 04/28/22 05/05/22 08:49 11:08 09:05 Wound Care Nurse 3 #8 Left 2nd Toe -Ulcer Cleansing Rinsed/ Rinsed/ Irrigated with Irrigated with Saline Saline -Foul Odor after Cleansing No -Negative Pressure Wound Therapy N/A -Primary Dressing Applied Aquacel Extra Aquacel Extra Aquacel Extra -Primary Dressing Covered/Secured with Dry Gauze, Dry Gauze,Dry Dry Gauze & Secured with Gauze & Roll Roll Gauze, Tape Gauze,Secured Secured with with Tape Tape -Aquacel Extra 1 1 1 #7 Left plantar -Ulcer Cleansing Rinsed/ Rinsed/ Irrigated with Irrigated with Saline Saline -Foul Odor after Cleansing No -Negative Pressure Wound Therapy N/A -Primary Dressing Applied Aquacel Extra -Primary Dressing Covered/Secured with Dry Gauze, Dry Gauze, Dry Gauze & Secured with Secured with Roll Gauze, Tape Tape Secured with Tape -Aquacel Extra 0 #6 Right 5th Toe -Ulcer Cleansing Rinsed/ Rinsed/ Irrigated with Irrigated with Saline Saline -Foul Odor after Cleansing No -Negative Pressure Wound Therapy N/A -Primary Dressing Applied Aquacel Extra -Primary Dressing Covered/Secured with Dry Gauze, Dry Gauze, Dry Gauze & Secured with Secured with Roll Gauze, Tape Tape Secured with Tape -Aquacel Extra 0 Pain Scale: 0-10 Numeric Is Patient Pain Free? Yes Yes Yes WC - Visit Discharge Discharge Condition Stable Stable Stable Ambulatory Status Ambulatory Ambulatory Ambulatory Transportation Private Auto Private Auto Private Auto Accompanied by Medication Reconcilliation completed & No provided to patient/care provider Clinical Summary of Care Provided No Additional Wound Wound debrided: Left plantar diabetic foot ulcer Laterality: Left Wound Grade/Stage: Stage II Type of Debridement: Excisional debridement Anesthesia Used: 5% Lidocaine Gel Percentage of wound debrided: 100 Instrument Used: 5mm curette and - (Nippers and scissors) Tissue Removed: Fibrin and devitalized tissue callus Severity: Limited To Skin Breakdown Amount of bleeding with debridement: Mild Patient tolerated procedure: Patient tolerated procedure well Additional Wound Wound debrided: Right fifth toe plantar side Laterality: Right Wound Grade/Stage: Stage II Type of Debridement: Excisional debridement Anesthesia Used: 5% Lidocaine Gel Depth: Down to and including healthy tissue Percentage of wound debrided: 100 Instrument Used: 5mm curette Tissue Removed: Fibrin and callus Severity: Limited To Skin Breakdown Amount of bleeding with debridement: Mild Patient tolerated procedure: Patient tolerated procedure well Assessment/Plan Assessment/Plan (1) 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 (2) Decubitus ulcer limited to breakdown of skin (stage 2): CODE(S): L89.92 - Pressure ulcer of unspecified site, stage 2 QUALIFIERS: Pressure injury location: toe Laterality: left Qualified Code(s): L89.892 - Pressure ulcer of other site, stage 2 PLAN: Epi fix #2 applied to all areas covered with wound veil and Steri-Strips gauze and tape Patient is not to get them wet and follow-up in 1 week
[2022-05-12 09:11] VITALS: BP 151/88; PULSE 84; RESP 17; TEMP 36.2
--- NOTE | 2022-05-12 11:03 | PCM.WC.PN ---
History of Present Illness Date of Service: 05/12/22 Chief Complaint: Follow-up on right fifth toe plantar side left plantar great toe and left plantar second toe. History of Wound: 76-year-old white male with previous history of amputations of the toes. Appears with increase in wounds to the toes for the last 6 weeks at least. 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 Nguyen and he referred him to here. He is currently using Aquacel to his wounds. His usually helps with dressing changes without a problem. Progress of Wound: Left second toe is smaller and healing well. The right fifth toe still open, the whole foot looks very swollen and the top of the toe has macerated and looks like it as a blister that we will unroofed today for a lot of liquid serous fluid. Remove the right fifth toenail also. We will get cultures and start him on metronidazole. Left plantar doing very well with epi fix and is measuring smaller. Again debrided a lot of callus and macerated tissue around the wound. Subjective Subjective Patient states the redness and swelling of the right foot started about 2 days ago Objective Data Objective Data As written above in the progress notes right fifth toe looks definitely infected we grabbed cultures and we will see what happens we will already start him on some metronidazole to get him started to we get the cultures back next week. Vital Signs: Vital Signs Temp Pulse Resp BP 97.1 F L 84 17 151/88 H 05/12/22 09:11 05/12/22 09:11 05/12/22 09:11 05/12/22 09:11 Lab / Micro Data Micro: Microbiology 04/21/22 08:40 Wound Abcess - Plantar Gram Stain - Final 04/21/22 08:40 Wound Abcess - Plantar Wound Culture - Final Staphylococcus aureus Staphylococcus haemolyticus 04/21/22 08:40 Wound Abcess - Plantar Anaerobic Culture - Final No anaerobic bacteria isolated. Physical Exam Const oriented x3 General Appearance: cooperative Exam Limitations: no limitations Resp normal respiratory effort Effort and Inspection: able to speak in complete sentences Auscultation: clear to auscultation bilaterally Cardio regular rate and regular rhythm Palpation: normal PMI Rate: regular rate Rhythm: regular rhythm GI Auscultation: normoactive bowel sounds Palpation: soft and no hepatosplenomegaly Extremity normal to inspection General Extremity: normal exam except as noted Skin no rashes or lesions noted Wound Narrative: Open wounds with callus around on the right fifth toe plantar left second toe plantar and left great toe plantar with all with open wounds also. Neuro oriented x3 Psych Appearance: grossly normal Speech: normal speech Thought Content: normal thought content Judgement: judgement good Debridement Note Debridement Note Wound debrided: Left second toe pressure Laterality: Left Wound Grade/Stage: Stage II Type of Debridement: Excisional debridement Anesthesia Used: 5% Lidocaine Gel Depth: Down to and including healthy tissue and in the subcutaneous layer Percentage of wound debrided: 100 Instrument Used: 5mm curette Tissue Removed: Fibrin and devitalized tissue Severity: Fat Layer Exposed Amount of bleeding with debridement: Mild Bleeding Controlled with: Compression and gauze Patient tolerated procedure: Patient tolerated procedure well Post-Debridement Measurements and Additional Note: Post-Debridement Measurements/Treatment - Nurse 1 - General Ulcer Assessment Start: 04/21/22 08:09 Freq: Status: Active Protocol: REMA Activity Type Activity Date Activity User E-sign Co-sign Detail Recorded Client Recorded Date Recorded By Document 04/21/22 08:10 KR [id number] 04/21/22 08:19 KR Document 04/28/22 10:06 ML [id number] 04/28/22 10:22 ML Document 05/05/22 08:16 KR [id number] 05/05/22 08:20 KR Document 05/12/22 09:11 ML [id number] 05/12/22 09:16 ML 04/21/22 04/28/22 05/05/22 08:10 10:06 08:16 - Today's Visit Information Type of service Initial Visit Follow-up Visit Follow-up Visit (Physician/CDS SALES ADVISOR (Physician/CDS SALES ADVISOR ) ) Arrival Mode Ambulatory Ambulatory Ambulatory Transfer Assistance None Patient Identification Verified (Name & Yes Yes Yes ) Patient Requires Transmission-Based No Precautions Safety Precautions NA Vital Signs Temperature (97.8 F-99.1 F) 96.8 F L 97.5 F L 97.0 F L Temperature Source Temporal Temporal Temporal Pulse Rate (60-100) 76 84 69 Pulse Location Monitor Monitor Monitor Respiratory Rate (12-18) 16 Respiratory rate source Observation Blood Pressure (90/60-120/80) 154/80 H 150/82 H 151/69 H Blood Pressure Mean (mm Hg) 104 104 96 Source Monitor Monitor Monitor Position Semi-Fowlers Semi-Fowlers Blood Pressure Location Left Arm Right Arm History Since Last Visit- (Skip if this is Patient's initial visit) Have you changed medications since your No No No last visit? Any new allergies or adverse reactions No No No Had a fall/change in ADL's that may No No No increase risk of falls Signs or symptoms of abuse and/or No No No neglect since last visit Have you been in the hospital since your No No No last visit? Has dressing in place as prescribed No Yes Yes Has compression in place as prescribed N/A N/A N/A Has offloadiing in place as prescribed N/A N/A N/A Experienced any changes in pain level or No No No management Left Footwear Regular Shoe Regular Shoe Regular Shoe Right Footwear Regular Shoe Regular Shoe Regular Shoe Pain Scale: 0-10 Numeric Is Patient Pain Free? Yes Yes Yes 05/12/22 09:11 WC - Today's Visit Information Type of service Follow-up Visit (Physician/CDS SALES ADVISOR ) Arrival Mode Ambulatory Transfer Assistance None Patient Identification Verified (Name & Yes ) Patient Requires Transmission-Based No Precautions Safety Precautions NA Vital Signs Temperature (97.8 F-99.1 F) 97.1 F L Temperature Source Temporal Pulse Rate (60-100) 84 Pulse Location Monitor Respiratory Rate (12-18) 17 Respiratory rate source Observation Blood Pressure (90/60-120/80) 151/88 H Blood Pressure Mean (mm Hg) 109 Source Monitor Position Blood Pressure Location History Since Last Visit- (Skip if this is Patient's initial visit) Have you changed medications since your No last visit? Any new allergies or adverse reactions No Had a fall/change in ADL's that may No increase risk of falls Signs or symptoms of abuse and/or No neglect since last visit Have you been in the hospital since your No last visit? Has dressing in place as prescribed Yes Has compression in place as prescribed No Has offloadiing in place as prescribed Yes Experienced any changes in pain level or No management Left Footwear Regular Shoe Right Footwear Regular Shoe Pain Scale: 0-10 Numeric Is Patient Pain Free? Yes WC - Nurse 1 - General Ulcer Measurement Start: 04/21/22 08:09 Freq: Status: Active Protocol: Activity Type Activity Date Activity User E-sign Co-sign Detail Recorded Client Recorded Date Recorded By Document 04/21/22 08:10 KR [id number] 04/21/22 08:19 KR Document 04/28/22 10:06 ML [id number] 04/28/22 10:22 ML Document 05/05/22 08:16 KR [id number] 05/05/22 08:20 KR Document 05/12/22 09:11 ML [id number] 05/12/22 09:16 ML 04/21/22 04/28/22 05/05/22 08:10 10:06 08:16 Wound Center Nurse 1 #8 Left 2nd Toe -Current Size (cm) - Length 0.3 0.1 0.2 -Current Size (cm) - Width 0.4 0.1 0.2 -Current Size (cm) - Depth 0.1 0.1 0.1 -Total Square Cm 0.12 0.01 0.04 -Exudate Amt Small None Present Small -Exudate Type Serosanguineous Serosanguineous -Wound Margin Distinct, Distinct, Distinct, Outline Outline Outline Attached Attached Attached -Granulation Amt Large (67-100%) Large (67-100%) Small (1-33%) -Granulation Quality [place] -Slough/Fibrin No -Necrosis Amt None Present (0 None Present (0 %) %) -Necrotic Tissue Type -Texture (Angie-wound Skin Appearance) Assessed,Callus Assessed Assessed, ,Scarring Scarring -Moisture (Angie-wound Skin Appearance) No Abnormality, Assessed No Abnormality, Assessed Assessed -Color (Angie-wound Skin Appearance) Assessed,Not Assessed No Abnormality, Assessed Assessed -Temperature (Angie-wound Skin No Abnormality No Abnormality No Abnormality Appearance) (Pt Warm) (Pt Warm) (Pt Warm) -Tenderness on Palpation (Angie-wound No No No Skin Appearance) -Ulcer Cleansing Rinsed/ Soap and Water Rinsed/ Irrigated with Irrigated with Saline Saline -Foul Odor after Cleansing No No No -Anesthetic Used 5% Lidocaine 5% Lidocaine 4% Lidocaine Gel Gel Solution #7 Left plantar -Current Size (cm) - Length 1.2 3 1.6 -Current Size (cm) - Width 1.8 2.8 1.6 -Current Size (cm) - Depth 0.8 0.2 0.1 -Total Square Cm 2.16 8.4 2.56 -Epithelialization -Exudate Amt Small Medium Small -Exudate Type Serosanguineous Purulent Serosanguineous -Wound Margin Distinct, Distinct, Distinct, Outline Outline Outline Attached Attached Attached -Granulation Amt Large (67-100%) Medium (34-66%) Large (67-100%) -Granulation Quality Red Red -Slough/Fibrin Yes -Necrosis Amt Medium (34-66%) None Present (0 %) -Necrotic Tissue Type Adherent Slough -Texture (Angie-wound Skin Appearance) Assessed,Callus Assessed Assessed,Callus ,Scarring -Moisture (Angie-wound Skin Appearance) No Abnormality, Assessed No Abnormality, Assessed Assessed -Color (Angie-wound Skin Appearance) No Abnormality, Assessed No Abnormality, Assessed Assessed -Temperature (Angie-wound Skin No Abnormality No Abnormality No Abnormality Appearance) (Pt Warm) (Pt Warm) (Pt Warm) -Tenderness on Palpation (Angie-wound No No No Skin Appearance) -Ulcer Cleansing Rinsed/ Soap and Water Rinsed/ Irrigated with Irrigated with Saline Saline -Foul Odor after Cleansing No No No -Anesthetic Used 5% Lidocaine 5% Lidocaine 4% Lidocaine Gel Gel Solution #6 Right 5th Toe -Current Size (cm) - Length 0.8 2 0.5 -Current Size (cm) - Width 1 2 1 -Current Size (cm) - Depth 0.1 0.2 0.1 -Total Square Cm 0.8 4 0.5 -Exudate Amt Medium Medium Small -Exudate Type Serosanguineous Serous Serosanguineous -Wound Margin Distinct, Distinct, Distinct, Outline Outline Outline Attached Attached Attached -Granulation Amt Medium (34-66%) Small (1-33%) Large (67-100%) -Granulation Quality [place] -Slough/Fibrin Yes -Necrosis Amt Small (1-33%) Medium (34-66%) None Present (0 %) -Necrotic Tissue Type Adherent Slough [place] -Texture (Angie-wound Skin Appearance) Assessed,Callus Assessed Assessed, ,Scarring Scarring -Moisture (Angie-wound Skin Appearance) No Abnormality, Assessed No Abnormality, Assessed Assessed -Color (Angie-wound Skin Appearance) No Abnormality, Assessed No Abnormality, Assessed Assessed -Temperature (Angie-wound Skin No Abnormality No Abnormality No Abnormality Appearance) (Pt Warm) (Pt Warm) (Pt Warm) -Tenderness on Palpation (Angie-wound No No No Skin Appearance) -Ulcer Cleansing Rinsed/ Soap and Water Rinsed/ Irrigated with Irrigated with Saline Saline -Foul Odor after Cleansing No No -Anesthetic Used 5% Lidocaine 5% Lidocaine 4% Lidocaine Gel Gel Solution Right Calf (cm) 39 Right Ankle (cm) 25.5 Left Calf (cm) 38 Left Ankle (cm) 28.5 05/12/22 09:11 Wound Center Nurse 1 #8 Left 2nd Toe -Current Size (cm) - Length 0.2 -Current Size (cm) - Width 0.2 -Current Size (cm) - Depth 0.1 -Total Square Cm 0.04 -Exudate Amt Medium -Exudate Type Serous -Wound Margin Distinct, Outline Attached -Granulation Amt Small (1-33%) -Granulation Quality Pale,Red -Slough/Fibrin Yes -Necrosis Amt Medium (34-66%) -Necrotic Tissue Type Adherent Slough -Texture (Angie-wound Skin Appearance) Assessed -Moisture (Angie-wound Skin Appearance) No Abnormality -Color (Angie-wound Skin Appearance) Assessed -Temperature (Angie-wound Skin No Abnormality Appearance) (Pt Warm) -Tenderness on Palpation (Angie-wound No Skin Appearance) -Ulcer Cleansing Rinsed/ Irrigated with Saline -Foul Odor after Cleansing No -Anesthetic Used 4% Lidocaine Solution #7 Left plantar -Current Size (cm) - Length 2 -Current Size (cm) - Width 1 -Current Size (cm) - Depth 0.2 -Total Square Cm 2 -Epithelialization Medium 34-66% -Exudate Amt Medium -Exudate Type -Wound Margin Distinct, Outline Attached -Granulation Amt Medium (34-66%) -Granulation Quality -Slough/Fibrin Yes -Necrosis Amt Medium (34-66%) -Necrotic Tissue Type Adherent Slough -Texture (Angie-wound Skin Appearance) Assessed -Moisture (Angie-wound Skin Appearance) Assessed -Color (Angie-wound Skin Appearance) Assessed -Temperature (Angie-wound Skin Appearance) -Tenderness on Palpation (Angie-wound Skin Appearance) -Ulcer Cleansing Rinsed/ Irrigated with Saline -Foul Odor after Cleansing No -Anesthetic Used 4% Lidocaine Solution #6 Right 5th Toe -Current Size (cm) - Length 1 -Current Size (cm) - Width 1 -Current Size (cm) - Depth 0.1 -Total Square Cm 1 -Exudate Amt Medium -Exudate Type Serous -Wound Margin Distinct, Outline Attached -Granulation Amt Medium (34-66%) -Granulation Quality Pale -Slough/Fibrin Yes -Necrosis Amt Medium (34-66%) -Necrotic Tissue Type Adherent Slough -Texture (Angie-wound Skin Appearance) Assessed -Moisture (Angie-wound Skin Appearance) Assessed -Color (Angie-wound Skin Appearance) Assessed -Temperature (Angie-wound Skin No Abnormality Appearance) (Pt Warm) -Tenderness on Palpation (Angie-wound No Skin Appearance) -Ulcer Cleansing Rinsed/ Irrigated with Saline -Foul Odor after Cleansing No -Anesthetic Used 4% Lidocaine Solution Right Calf (cm) 38.5 Right Ankle (cm) 28 Left Calf (cm) 38 Left Ankle (cm) 27 WC - Nurse 2 - General Ulcer CM Notes Start: 04/21/22 08:09 Freq: Status: Active Protocol: Activity Type Activity Date Activity User E-sign Co-sign Detail Recorded Client Recorded Date Recorded By Document 04/21/22 08:34 MW [id number] 04/21/22 08:49 MW Document 04/28/22 10:30 MW [id number] 04/28/22 10:50 MW Document 05/05/22 08:27 MW [id number] 05/05/22 08:40 MW Document 05/12/22 09:25 MW [id number] 05/12/22 09:48 MW 04/21/22 04/28/22 05/05/22 08:34 10:30 08:27 Wound Center Nurse 2 #8 Left 2nd Toe -Time 08:34 10:31 08:28 -Correct Patient Yes Yes Yes -Correct Side, Site, Position Yes Yes Yes -Correct Procedure Yes Yes Yes -Procedure Performed Yes Yes Yes -Type of Procedure Debridement Debridement Debridement -Clinical Debridement Subcutaneous Subcutaneous Subcutaneous -Tissue Removed Subcutaneous Subcutaneous Subcutaneous -Post Debridement (cm) - Length 0.5 0.3 0.4 -Post Debridement (cm) - Width 0.5 0.3 0.1 -Post Debridement (cm) - Depth 0.1 0.2 0.1 -Total Square (Post) (cm) 0.25 0.09 0.04 -Area of Debridement (cm) - Length 0.5 0.3 0.4 -Area of Debridement (cm) - Width 0.5 0.3 0.1 -Total Square (Area) (cm) 0.25 0.09 0.04 -Tunneling No No No -Undermining/Tunneling No No No -Circular Undermining No No No -Wound/Ulcer Outcome Not Healed Not Healed Not Healed -Ulcer Cleansing Rinsed/ Rinsed/ Rinsed/ Irrigated with Irrigated with Irrigated with Saline Saline Saline -Foul Odor after Cleansing No No No -Bioengineered Tissue No No No -Bleeding Controlled with Pressure Pressure Pressure -Treatment Response Procedure Procedure Procedure Tolerated Well Tolerated Well Tolerated Well -Offloading No No No -Debridement - Subq, 1st 20sq cm Yes Yes Yes #7 Left plantar -Time 08:35 10:31 08:28 -Correct Patient Yes Yes Yes -Correct Side, Site, Position Yes Yes Yes -Correct Procedure Yes Yes Yes -Procedure Performed Yes Yes Yes -Type of Procedure Debridement Debridement Debridement -Clinical Debridement Subcutaneous Subcutaneous Subcutaneous -Tissue Removed Subcutaneous Subcutaneous Subcutaneous -Post Debridement (cm) - Length 2.0 1.5 0.5 -Post Debridement (cm) - Width 3.0 2.0 1.7 -Post Debridement (cm) - Depth 0.2 0.1 0.1 -Total Square (Post) (cm) 6.00 3.00 0.85 -Area of Debridement (cm) - Length 2.0 1.5 0.5 -Area of Debridement (cm) - Width 3.0 2.0 1.7 -Total Square (Area) (cm) 6.00 3.00 0.85 -Tunneling No No No -Undermining/Tunneling No No No -Circular Undermining No No No -Wound/Ulcer Outcome Not Healed Not Healed Not Healed -Ulcer Cleansing Rinsed/ Rinsed/ Rinsed/ Irrigated with Irrigated with Irrigated with Saline Saline Saline -Foul Odor after Cleansing No No No -Bioengineered Tissue No Yes Yes -Type of Bioengineered Tissue Epifix Epifix -Expiration Date 01/12/27 01/12/27 -Product Lot Number [id number] -Percent Used 100 100 -Lot number of Saline Used [id number] -Bleeding Controlled with Pressure Pressure Pressure -Treatment Response Procedure Procedure Procedure Tolerated Well Tolerated Well Tolerated Well -Offloading No No No -Debridement - Subq, 1st 20sq cm No No No -Apply Skin Sub - 1st 25 sq cm - Feet 1 1 -Epifix (per sq cm) 4 4 -Epifix 18mm Disc #6 Right 5th Toe -Time 08:35 10:31 08:29 -Correct Patient Yes Yes Yes -Correct Side, Site, Position Yes Yes Yes -Correct Procedure Yes Yes Yes -Procedure Performed Yes Yes Yes -Type of Procedure Debridement Debridement Debridement -Clinical Debridement Subcutaneous Subcutaneous Subcutaneous -Tissue Removed Subcutaneous Subcutaneous Subcutaneous -Post Debridement (cm) - Length 1.0 1.0 0.6 -Post Debridement (cm) - Width 1.0 1.0 1.0 -Post Debridement (cm) - Depth 0.1 0.1 0.1 -Total Square (Post) (cm) 1.00 1.00 0.60 -Area of Debridement (cm) - Length 1.0 1.0 0.6 -Area of Debridement (cm) - Width 1.0 1.0 1.0 -Total Square (Area) (cm) 1.00 1.00 0.60 -Tunneling No No No -Undermining/Tunneling No No No -Circular Undermining No No No -Wound/Ulcer Outcome Not Healed Not Healed Not Healed -Ulcer Cleansing Rinsed/ Rinsed/ Rinsed/ Irrigated with Irrigated with Irrigated with Saline Saline Saline -Foul Odor after Cleansing No No No -Bioengineered Tissue No No No -Bleeding Controlled with Pressure Pressure Pressure -Treatment Response Procedure Procedure Procedure Tolerated Well Tolerated Well Tolerated Well -Offloading No No No -Debridement - Subq, 1st 20sq cm No No No Pain Scale: 0-10 Numeric Is Patient Pain Free? Yes Yes Yes 05/12/22 09:25 Wound Center Nurse 2 #8 Left 2nd Toe -Time 09:25 -Correct Patient Yes -Correct Side, Site, Position Yes -Correct Procedure Yes -Procedure Performed Yes -Type of Procedure Debridement -Clinical Debridement Subcutaneous -Tissue Removed Subcutaneous -Post Debridement (cm) - Length 0.3 -Post Debridement (cm) - Width 0.3 -Post Debridement (cm) - Depth 0.3 -Total Square (Post) (cm) 0.09 -Area of Debridement (cm) - Length 0.3 -Area of Debridement (cm) - Width 0.3 -Total Square (Area) (cm) 0.09 -Tunneling No -Undermining/Tunneling No -Circular Undermining No -Wound/Ulcer Outcome Not Healed -Ulcer Cleansing Rinsed/ Irrigated with Saline -Foul Odor after Cleansing No -Bioengineered Tissue No -Bleeding Controlled with Pressure -Treatment Response Procedure Tolerated Well -Offloading No -Debridement - Subq, 1st 20sq cm Yes #7 Left plantar -Time 09:25 -Correct Patient Yes -Correct Side, Site, Position Yes -Correct Procedure Yes -Procedure Performed Yes -Type of Procedure Debridement -Clinical Debridement Subcutaneous -Tissue Removed Subcutaneous -Post Debridement (cm) - Length 0.6 -Post Debridement (cm) - Width 1.8 -Post Debridement (cm) - Depth 0.2 -Total Square (Post) (cm) 1.08 -Area of Debridement (cm) - Length 0.6 -Area of Debridement (cm) - Width 1.8 -Total Square (Area) (cm) 1.08 -Tunneling No -Undermining/Tunneling No -Circular Undermining No -Wound/Ulcer Outcome Not Healed -Ulcer Cleansing Rinsed/ Irrigated with Saline -Foul Odor after Cleansing No -Bioengineered Tissue Yes -Type of Bioengineered Tissue Epifix 18mm Disc -Expiration Date 02/12/27 -Product Lot Number [id number] -Percent Used 100 -Lot number of Saline Used [id number] -Bleeding Controlled with Pressure -Treatment Response Procedure Tolerated Well -Offloading No -Debridement - Subq, 1st 20sq cm No -Apply Skin Sub - 1st 25 sq cm - Feet 1 -Epifix (per sq cm) -Epifix 18mm Disc 3 #6 Right 5th Toe -Time 09:26 -Correct Patient Yes -Correct Side, Site, Position Yes -Correct Procedure Yes -Procedure Performed Yes -Type of Procedure Debridement -Clinical Debridement Subcutaneous -Tissue Removed Subcutaneous -Post Debridement (cm) - Length 3.8 -Post Debridement (cm) - Width 1.5 -Post Debridement (cm) - Depth 0.2 -Total Square (Post) (cm) 5.70 -Area of Debridement (cm) - Length 3.8 -Area of Debridement (cm) - Width 1.5 -Total Square (Area) (cm) 5.70 -Tunneling No -Undermining/Tunneling No -Circular Undermining No -Wound/Ulcer Outcome Not Healed -Ulcer Cleansing Rinsed/ Irrigated with Saline -Foul Odor after Cleansing No -Bioengineered Tissue No -Bleeding Controlled with Pressure -Treatment Response Procedure Tolerated Well -Offloading No -Debridement - Subq, 1st 20sq cm No Pain Scale: 0-10 Numeric Is Patient Pain Free? Yes WC - Nurse 3 - General Ulcer D/C NN Start: 04/21/22 08:09 Freq: Status: Active Protocol: Activity Type Activity Date Activity User E-sign Co-sign Detail Recorded Client Recorded Date Recorded By Document 04/21/22 08:49 KR [id number] 04/21/22 08:50 KR Document 04/28/22 11:08 KR [id number] 04/28/22 11:08 KR Document 05/05/22 09:05 AK [id number] 05/05/22 09:06 AK Document 05/12/22 09:56 ML [id number] 05/12/22 10:01 ML 04/21/22 04/28/22 05/05/22 08:49 11:08 09:05 Wound Care Nurse 3 #8 Left 2nd Toe -Ulcer Cleansing Rinsed/ Rinsed/ Irrigated with Irrigated with Saline Saline -Foul Odor after Cleansing No -Negative Pressure Wound Therapy N/A -Primary Dressing Applied Aquacel Extra Aquacel Extra Aquacel Extra -Primary Dressing Covered/Secured with Dry Gauze, Dry Gauze,Dry Dry Gauze & Secured with Gauze & Roll Roll Gauze, Tape Gauze,Secured Secured with with Tape Tape -Aquacel Extra 1 1 1 #7 Left plantar -Ulcer Cleansing Rinsed/ Rinsed/ Irrigated with Irrigated with Saline Saline -Foul Odor after Cleansing No -Negative Pressure Wound Therapy N/A -Primary Dressing Applied Aquacel Extra -Primary Dressing Covered/Secured with Dry Gauze, Dry Gauze, Dry Gauze & Secured with Secured with Roll Gauze, Tape Tape Secured with Tape -Aquacel Extra 0 #6 Right 5th Toe -Ulcer Cleansing Rinsed/ Rinsed/ Irrigated with Irrigated with Saline Saline -Foul Odor after Cleansing No -Negative Pressure Wound Therapy N/A -Primary Dressing Applied Aquacel Extra -Primary Dressing Covered/Secured with Dry Gauze, Dry Gauze, Dry Gauze & Secured with Secured with Roll Gauze, Tape Tape Secured with Tape -Aquacel Extra 0 Right -Tubular Bandage -Size of Tubigrip Used -Size D ($) Left -Tubular Bandage -Size of Tubigrip Used -Size D ($) Pain Scale: 0-10 Numeric Is Patient Pain Free? Yes Yes Yes WC - Visit Discharge Discharge Condition Stable Stable Stable Ambulatory Status Ambulatory Ambulatory Ambulatory Transportation Private Auto Private Auto Private Auto Accompanied by Medication Reconcilliation completed & No provided to patient/care provider Clinical Summary of Care Provided No 05/12/22 09:56 Wound Care Nurse 3 #8 Left 2nd Toe -Ulcer Cleansing Rinsed/ Irrigated with Saline -Foul Odor after Cleansing -Negative Pressure Wound Therapy -Primary Dressing Applied Aquacel Extra -Primary Dressing Covered/Secured with Dry Gauze, Secured with Tape -Aquacel Extra 1 #7 Left plantar -Ulcer Cleansing -Foul Odor after Cleansing -Negative Pressure Wound Therapy -Primary Dressing Applied -Primary Dressing Covered/Secured with Dry Gauze, Secured with Tape -Aquacel Extra #6 Right 5th Toe -Ulcer Cleansing Rinsed/ Irrigated with Saline -Foul Odor after Cleansing -Negative Pressure Wound Therapy -Primary Dressing Applied Aquacel Extra -Primary Dressing Covered/Secured with Dry Gauze, Secured with Tape -Aquacel Extra 0 Right -Tubular Bandage Single Layer -Size of Tubigrip Used Size D -Size D ($) 1 Left -Tubular Bandage Single Layer -Size of Tubigrip Used Size D -Size D ($) 1 Pain Scale: 0-10 Numeric Is Patient Pain Free? Yes WC - Visit Discharge Discharge Condition Stable Ambulatory Status Ambulatory Transportation Accompanied by Medication Reconcilliation completed & No provided to patient/care provider Clinical Summary of Care Provided Yes Additional Wound Wound debrided: Left plantar ulcer from pressure Laterality: Left Wound Grade/Stage: Stage II Anesthesia Used: 5% Lidocaine Gel Depth: in the subcutaneous layer Percentage of wound debrided: 100 Instrument Used: 5mm curette Tissue Removed: Devitalized tissue and fibrin Severity: Fat Layer Exposed Amount of bleeding with debridement: Mild Bleeding Controlled with: Compression and gauze Patient tolerated procedure: Patient tolerated procedure well Additional Wound Wound debrided: Right fifth toe Laterality: Right Wound Grade/Stage: Stage II Type of Debridement: Excisional debridement Anesthesia Used: 5% Lidocaine Gel Depth: in the subcutaneous layer Percentage of wound debrided: 100 Instrument Used: 7mm curette and - ( nippers) Tissue Removed: Devitalized tissue macerated tissue fibrin slough Amount of bleeding with debridement: Mild Bleeding Controlled with: Compression and gauze Patient tolerated procedure: Patient tolerated procedure well Assessment/Plan Assessment/Plan (1) 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 (2) Decubitus ulcer limited to breakdown of skin (stage 2): CODE(S): L89.92 - Pressure ulcer of unspecified site, stage 2 QUALIFIERS: Pressure injury location: toe Laterality: left Qualified Code(s): L89.892 - Pressure ulcer of other site, stage 2 PLAN: Epi fix #3 applied to left plantar and left second toe areas covered with wound veil and Steri-Strips gauze and tape Right fifth toe Aquacel extra gauze and tape every day Start Flagyl 250 mg twice daily for 14 days and fluconazole 100 mg every day Patient is not to get them wet and follow-up in 1 week
== END 2022-05-13 23:59 | disposition home or self-care (01) ==
LOC: WC 09:00
PROVIDERS: PCP Family Medicine; Visit Provider Nurse Practitioner
DX: E08.621 Diabetes mellitus due to underlying condition with foot ulcer (principal); L89.892 Pressure ulcer of other site, stage 2; L97.526 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 involvement without evidence of necrosis
CPT/HCPCS: 11042; 15275; 73630; 87070; 87075; 87077; 87186; 87205; 99213; Q4186; G0463

== ENCOUNTER → 2022-06-04 | Outpatient (CLI) | payer MEDICARE, OTHER, SELFPAY ==
[2022-06-04] MEDS: DiphenhydrAMINE 50 MG/ML Syringe 12.5 MG IV (10:23)
[2022-06-04 10:28] VITALS: BP 115/63; PULSE 52; RESP 16; TEMP 36.2; O2SAT 99
== END | disposition home or self-care (01) ==
LOC: MEDOUTP 10:01
PROVIDERS: PCP Family Medicine; Referring Provider Family Medicine; Visit Provider Family Medicine
DX: L40.52 Psoriatic arthritis mutilans (principal); L40.50 Arthropathic psoriasis, unspecified; L40.9 Psoriasis, unspecified; L21.9 Seborrheic dermatitis, unspecified; L85.3 Xerosis cutis; M17.0 Bilateral primary osteoarthritis of knee; M50.90 Cervical disc disorder, unspecified, unspecified cervical region; Z79.899 Other long term (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; Z79.1 Long term (current) use of non-steroidal anti-inflammatories (NSAID)
CPT/HCPCS: 96415; 96413; J7050; A4216; Q5103

== ENCOUNTER 2022-06-09 09:00 | Outpatient (RCR) | payer MEDICARE, OTHER, SELFPAY ==
[2022-05-14 00:46] VITALS: BP 151/88; PULSE 84; RESP 17; TEMP 36.2
[2022-05-19 09:18] VITALS: BP 109/76; PULSE 57; TEMP 36.2
--- NOTE | 2022-05-19 10:20 | PCM.WC.PN ---
History of Present Illness Date of Service: 05/19/22 Chief Complaint: Follow-up on right fifth toe plantar side left plantar great toe and left plantar second toe. History of Wound: 76-year-old white male with previous history of amputations of the toes. Appears with increase in wounds to the toes for the last 6 weeks at least. He has been seen by his own whiting machine operator Dr. Nguyen and he referred him to here. He is currently using Aquacel to his wounds. His usually helps with dressing changes without a problem. Progress of Wound: Patient had positive wound cultures and is currently on linezolid 600 mg twice a day right fifth toe is totally encompassed and red but its not moving up his foot. Had a large yellow crusted film over the entire toe that was debrided off. Left second toe plantar side looks very good almost healed and the plantar side of his ball of his foot looks very good also improving filling and with the epi fix. Subjective Subjective Patient has no concerns Objective Data Objective Data As stated above in progress note patient was started on antibiotic therapy measurements are slightly smaller right fifth toe is encompassed in redness. Vital Signs: Vital Signs Temp Pulse Resp BP 97.2 F L 57 L 17 109/76 05/19/22 09:18 05/19/22 09:18 05/14/22 00:46 05/19/22 09:18 Physical Exam Const oriented x3 General Appearance: cooperative Exam Limitations: no limitations Resp normal respiratory effort Effort and Inspection: able to speak in complete sentences Auscultation: clear to auscultation bilaterally Cardio regular rate and regular rhythm Palpation: normal PMI Rate: regular rate Rhythm: regular rhythm GI Auscultation: normoactive bowel sounds Palpation: soft and no hepatosplenomegaly Extremity normal to inspection General Extremity: normal exam except as noted Skin no rashes or lesions noted Wound Narrative: Open wounds with callus around on the right fifth toe plantar left second toe plantar and left great toe plantar with all with open wounds also. Neuro oriented x3 Psych Appearance: grossly normal Speech: normal speech Thought Content: normal thought content Judgement: judgement good Debridement Note Debridement Note Wound debrided: Right fifth toe Laterality: Right Wound Grade/Stage: Diabetic foot ulcer right fifth toe Garcia 2 Type of Debridement: Excisional debridement Anesthesia Used: 5% Lidocaine Gel Depth: in the subcutaneous layer Percentage of wound debrided: 100 Instrument Used: 3mm curette and - (Nippers) Tissue Removed: Devitalized tissue fibrin callus Severity: Fat Layer Exposed Amount of bleeding with debridement: Mild Bleeding Controlled with: Compression and gauze Patient tolerated procedure: Patient tolerated procedure well Post-Debridement Measurements and Additional Note: Post-Debridement Measurements/Treatment - Nurse 1 - General Ulcer Assessment Start: 05/19/22 09:17 Freq: Status: Active Protocol: STEPHANIEEXT Activity Type Activity Date Activity User E-sign Co-sign Detail Recorded Client Recorded Date Recorded By Document 05/19/22 09:18 OCTAVIO [id number] 05/19/22 09:26 CT 05/19/22 09:18 WC - Today's Visit Information Type of service Follow-up Visit (Physician/[employer]UL[employer]ER ) Arrival Mode Ambulatory Patient Identification Verified (Name & Yes ) Patient Requires Transmission-Based No Precautions Safety Precautions NA Vital Signs Temperature (97.8 F-99.1 F) 97.2 F L Temperature Source Temporal Pulse Rate (60-100) 57 L Pulse Location Monitor Blood Pressure (90/60-120/80) 109/76 Blood Pressure Mean (mm Hg) 87 Source Monitor History Since Last Visit- (Skip if this is Patient's initial visit) Have you changed medications since your No last visit? Any new allergies or adverse reactions No Had a fall/change in ADL's that may No increase risk of falls Signs or symptoms of abuse and/or No neglect since last visit Have you been in the hospital since your No last visit? Has dressing in place as prescribed Yes Has compression in place as prescribed No Has offloadiing in place as prescribed N/A Experienced any changes in pain level or No management Left Footwear Regular Shoe Right Footwear Regular Shoe Pain Scale: 0-10 Numeric Is Patient Pain Free? Yes [facility] Nurse 1 - General Ulcer Measurement Start: 05/19/22 09:17 Freq: Status: Active Protocol: Activity Type Activity Date Activity User E-sign Co-sign Detail Recorded Client Recorded Date Recorded By Document 05/19/22 09:18 OCTAVIO [id number] 05/19/22 09:26 CT 05/19/22 09:18 Wound Center Nurse 1 #8 Left 2nd Toe -Combined with other wound No -Current Size (cm) - Length 0.1 -Current Size (cm) - Width 0.1 -Current Size (cm) - Depth 0.1 -Total Square Cm 0.01 -Photo Taken No -Tunneling No -Undermining/Tunneling No -Circular Undermining No -Change in Wound Grade/Stage No -Exudate Amt Small -Exudate Type Serosanguineous -Wound Margin Distinct, Outline Attached -Granulation Amt Small (1-33%) -Granulation Quality Pale,[place] -Slough/Fibrin No -Structure Exposed N/A -Texture (Angie-wound Skin Appearance) Assessed,Callus -Moisture (Angie-wound Skin Appearance) No Abnormality, Assessed -Color (Angie-wound Skin Appearance) No Abnormality, Assessed -Temperature (Angie-wound Skin No Abnormality Appearance) (Pt Warm) -Tenderness on Palpation (Angie-wound No Skin Appearance) -Ulcer Cleansing Rinsed/ Irrigated with Saline -Foul Odor after Cleansing No -Anesthetic Used 5% Lidocaine Gel #7 Left plantar -Combined with other wound No -Current Size (cm) - Length 0.8 -Current Size (cm) - Width 1.5 -Current Size (cm) - Depth 0.1 -Total Square Cm 1.20 -Photo Taken No -Epithelialization None Present -Tunneling No -Undermining/Tunneling No -Circular Undermining No -Exudate Amt None Present -Granulation Amt None Present (0 %) -Granulation Quality Red -Slough/Fibrin Yes -Necrosis Amt Small (1-33%) -Necrotic Tissue Type Adherent Slough -Structure Exposed N/A -Texture (Angie-wound Skin Appearance) Assessed,Callus -Moisture (Angie-wound Skin Appearance) No Abnormality, Assessed -Color (Angie-wound Skin Appearance) No Abnormality, Assessed -Temperature (Angie-wound Skin No Abnormality Appearance) (Pt Warm) -Tenderness on Palpation (Angie-wound No Skin Appearance) -Ulcer Cleansing Rinsed/ Irrigated with Saline -Foul Odor after Cleansing No -Anesthetic Used 4% Lidocaine Solution #6 Right 5th Toe -Combined with other wound No -Current Size (cm) - Length 0.5 -Current Size (cm) - Width 0.5 -Current Size (cm) - Depth 0.2 -Total Square Cm 0.25 -Photo Taken No -Tunneling No -Undermining/Tunneling No -Circular Undermining No -Change in Wound Grade/Stage No -Exudate Amt Small -Exudate Type Serosanguineous -Wound Margin Distinct, Outline Attached -Granulation Amt Medium (34-66%) -Granulation Quality [place] -Slough/Fibrin Yes -Necrosis Amt Small (1-33%) -Necrotic Tissue Type Adherent Slough -Structure Exposed N/A -Texture (Angie-wound Skin Appearance) Assessed,Callus -Moisture (Angie-wound Skin Appearance) No Abnormality, Assessed -Color (Angie-wound Skin Appearance) No Abnormality, Assessed -Temperature (Angie-wound Skin No Abnormality Appearance) (Pt Warm) -Tenderness on Palpation (Angie-wound No Skin Appearance) -Ulcer Cleansing Rinsed/ Irrigated with Saline -Foul Odor after Cleansing No -Anesthetic Used 5% Lidocaine Gel WC - Nurse 2 - General Ulcer CM Notes Start: 05/19/22 09:17 Freq: Status: Active Protocol: Activity Type Activity Date Activity User E-sign Co-sign Detail Recorded Client Recorded Date Recorded By Document 05/19/22 09:32 MW [id number] 05/19/22 09:48 MW 05/19/22 09:32 Wound Center Nurse 2 #8 Left 2nd Toe -Time 09:35 -Correct Patient Yes -Correct Side, Site, Position Yes -Correct Procedure Yes -Procedure Performed Yes -Type of Procedure Debridement -Clinical Debridement Subcutaneous -Tissue Removed Subcutaneous -Post Debridement (cm) - Length 0.3 -Post Debridement (cm) - Width 0.2 -Post Debridement (cm) - Depth 0.1 -Total Square (Post) (cm) 0.06 -Area of Debridement (cm) - Length 0.3 -Area of Debridement (cm) - Width 0.2 -Total Square (Area) (cm) 0.06 -Tunneling No -Undermining/Tunneling No -Circular Undermining No -Wound/Ulcer Outcome Not Healed -Ulcer Cleansing Rinsed/ Irrigated with Saline -Foul Odor after Cleansing No -Bioengineered Tissue No -Bleeding Controlled with Pressure -Treatment Response Procedure Tolerated Well -Offloading No -Debridement - Subq, 1st 20sq cm Yes #7 Left plantar -Time 09:35 -Correct Patient Yes -Correct Side, Site, Position Yes -Correct Procedure Yes -Procedure Performed Yes -Type of Procedure Debridement -Clinical Debridement Subcutaneous -Tissue Removed Subcutaneous -Post Debridement (cm) - Length 1.4 -Post Debridement (cm) - Width 1.8 -Post Debridement (cm) - Depth 0.2 -Total Square (Post) (cm) 2.52 -Area of Debridement (cm) - Length 1.4 -Area of Debridement (cm) - Width 1.8 -Total Square (Area) (cm) 2.52 -Tunneling No -Undermining/Tunneling No -Circular Undermining No -Wound/Ulcer Outcome Not Healed -Ulcer Cleansing Rinsed/ Irrigated with Saline -Foul Odor after Cleansing No -Bioengineered Tissue Yes -Type of Bioengineered Tissue Epifix -Expiration Date 01/12/27 -Product Lot Number [id number] -Percent Used 100 -Lot number of Saline Used [id number] -Bleeding Controlled with Pressure -Treatment Response Procedure Tolerated Well -Offloading No -Debridement - Subq, 1st 20sq cm No -Apply Skin Sub - 1st 25 sq cm - Feet 1 -Epifix (per sq cm) 4 #6 Right 5th Toe -Time 09:35 -Correct Patient Yes -Correct Side, Site, Position Yes -Correct Procedure Yes -Procedure Performed Yes -Type of Procedure Debridement -Clinical Debridement Subcutaneous -Tissue Removed Subcutaneous -Post Debridement (cm) - Length 0.5 -Post Debridement (cm) - Width 0.5 -Post Debridement (cm) - Depth 0.2 -Total Square (Post) (cm) 0.25 -Area of Debridement (cm) - Length 0.5 -Area of Debridement (cm) - Width 0.5 -Total Square (Area) (cm) 0.25 -Tunneling No -Undermining/Tunneling No -Circular Undermining No -Wound/Ulcer Outcome Not Healed -Ulcer Cleansing Rinsed/ Irrigated with Saline -Foul Odor after Cleansing No -Bioengineered Tissue No -Bleeding Controlled with Pressure -Treatment Response Procedure Tolerated Well -Offloading No -Debridement - Subq, 1st 20sq cm No Pain Scale: 0-10 Numeric Is Patient Pain Free? Yes WC - Nurse 3 - General Ulcer D/C NN Start: 05/19/22 09:17 Freq: Status: Active Protocol: Activity Type Activity Date Activity User E-sign Co-sign Detail Recorded Client Recorded Date Recorded By Document 05/19/22 10:07 ML [id number] 05/19/22 10:09 ML 05/19/22 10:07 Wound Care Nurse 3 #8 Left 2nd Toe -Primary Dressing Applied Aquacel Extra -Primary Dressing Covered/Secured with Dry Gauze & Roll Gauze, Secured with Tape -Aquacel Extra 1 #7 Left plantar -Primary Dressing Applied Aquacel Extra -Primary Dressing Covered/Secured with Dry Gauze & Roll Gauze, Secured with Tape -Aquacel Extra 0 #6 Right 5th Toe -Primary Dressing Applied Aquacel Extra -Primary Dressing Covered/Secured with Dry Gauze & Roll Gauze, Secured with Tape -Aquacel Extra 0 Right -Tubular Bandage Single Layer -Size of Tubigrip Used Size F -Size F ($) 1 Left -Tubular Bandage Single Layer -Size of Tubigrip Used Size F -Size F ($) 1 Vital Signs Temperature Source Oral Pain Scale: 0-10 Numeric Is Patient Pain Free? Yes Additional Wound Wound debrided: Left second toe Laterality: Left Wound Grade/Stage: Stage II diabetic foot ulcer Type of Debridement: Excisional debridement Anesthesia Used: 5% Lidocaine Gel Depth: Down to and including healthy tissue Percentage of wound debrided: 100 Instrument Used: 3mm curette Tissue Removed: Fibrin and callus Severity: Limited To Skin Breakdown Amount of bleeding with debridement: Mild Bleeding Controlled with: Compression and gauze Patient tolerated procedure: Patient tolerated procedure well Additional Wound Wound debrided: Left plantar decubitus ulcer Laterality: Left Wound Grade/Stage: Stage II Type of Debridement: Excisional debridement Anesthesia Used: 5% Lidocaine Gel Depth: in the subcutaneous layer Percentage of wound debrided: 100 Instrument Used: 3mm curette and - (Nippers) Tissue Removed: Fibrin and callus and devitalized tissue Severity: Fat Layer Exposed Amount of bleeding with debridement: Mild Bleeding Controlled with: Compression and gauze Patient tolerated procedure: Patient tolerated procedure well Assessment/Plan Assessment/Plan (1) 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 (2) Decubitus ulcer limited to breakdown of skin (stage 2): CODE(S): L89.92 - Pressure ulcer of unspecified site, stage 2 QUALIFIERS: Pressure injury location: toe Laterality: left Qualified Code(s): L89.892 - Pressure ulcer of other site, stage 2 PLAN: Epi fix #4 applied to left plantar and left second toe areas covered with wound veil and Steri-Strips gauze and tape Right fifth toe Aquacel extra gauze and tape every day Continue Flagyl 250 mg twice daily for 14 days and fluconazole 100 mg every day also linezolid 600 mg twice daily for 14 days Patient is not to get them wet and follow-up in 1 week
[2022-05-26 09:19] VITALS: BP 153/72; PULSE 68; TEMP 36
--- NOTE | 2022-05-26 12:01 | PN.PCM_ITS ---
History of Present Illness Date of Service: 05/26/22 Chief Complaint: Follow-up on right fifth toe plantar side left plantar great toe and left plantar second toe. History of Wound: 76-year-old white male with previous history of amputations of the toes. Appears with increase in wounds to the toes for the last 6 weeks at least. He has been seen by his own crinkling machine operator Dr. Nguyen and he referred him to here. He is currently using Aquacel to his wounds. His usually helps with dressing changes without a problem. Progress of Wound: All wounds today are totally much better from last week. Continues to finish his antibiotic therapy. Left second toe is healed we are just dealing with the left plantar ulcer and the right fifth toe. Subjective Subjective Patient has no feeling in his toes but feels he is happy that were getting improvement Objective Data Objective Data No sign of infection noted. Wounds are well demarcated and smaller on measurements. We will restart using epi fix #5 Vital Signs: Vital Signs Temp Pulse Resp BP 96.8 F L 68 17 153/72 H 05/26/22 09:19 05/26/22 09:19 05/14/22 00:46 05/26/22 09:19 Lab / Micro Data Attestation: I reviewed the patient's lab results. Physical Exam Const oriented x3 General Appearance: cooperative Exam Limitations: no limitations Resp normal respiratory effort Effort and Inspection: able to speak in complete sentences Auscultation: clear to auscultation bilaterally Cardio regular rate and regular rhythm Palpation: normal PMI Rate: regular rate Rhythm: regular rhythm GI Auscultation: normoactive bowel sounds Palpation: soft and no hepatosplenomegaly Extremity normal to inspection General Extremity: normal exam except as noted Skin no rashes or lesions noted Wound Narrative: Open wounds with callus around on the right fifth toe plantar left second toe plantar and left great toe plantar with all with open wounds also. Neuro oriented x3 Psych Appearance: grossly normal Speech: normal speech Thought Content: normal thought content Judgement: judgement good Debridement Note Debridement Note Wound debrided: Plantar ulcer Laterality: Left Type of Debridement: Excisional debridement Anesthesia Used: 4% Lidocaine Solution and 5% Lidocaine Gel Depth: in the subcutaneous layer Percentage of wound debrided: 100 Instrument Used: 5mm curette Tissue Removed: Fibrin Severity: Limited To Skin Breakdown Amount of bleeding with debridement: None Patient tolerated procedure: Patient tolerated procedure well Post-Debridement Measurements and Additional Note: Post-Debridement Measurements/Treatment WC - Nurse 1 - General Ulcer Assessment Start: 05/19/22 09:17 Freq: Status: Active Protocol: REMA Activity Type Activity Date Activity User E-sign Co-sign Detail Recorded Client Recorded Date Recorded By Document 05/19/22 09:18 AK [id number] 05/19/22 09:26 AK Document 05/26/22 09:19 KR [id number] 05/26/22 09:27 KR 05/19/22 05/26/22 09:18 09:19 WC - Today's Visit Information Type of service Follow-up Visit Follow-up Visit (Physician/DIRECTOR OF INSTRUCTION (Physician/DIRECTOR OF INSTRUCTION ) ) Arrival Mode Ambulatory Ambulatory Patient Identification Verified (Name & Yes Yes ) Patient Requires Transmission-Based No Precautions Safety Precautions NA Vital Signs Temperature (97.8 F-99.1 F) 97.2 F L 96.8 F L Temperature Source Temporal Temporal Pulse Rate (60-100) 57 L 68 Pulse Location Monitor Monitor Blood Pressure (90/60-120/80) 109/76 153/72 H Blood Pressure Mean (mm Hg) 87 99 Source Monitor Monitor Position Semi-Fowlers Blood Pressure Location Right Arm History Since Last Visit- (Skip if this is Patient's initial visit) Have you changed medications since your No No last visit? Any new allergies or adverse reactions No No Had a fall/change in ADL's that may No No increase risk of falls Signs or symptoms of abuse and/or No No neglect since last visit Have you been in the hospital since your No No last visit? Has dressing in place as prescribed Yes Yes Has compression in place as prescribed No N/A Has offloadiing in place as prescribed N/A N/A Experienced any changes in pain level or No No management Left Footwear Regular Shoe Regular Shoe Right Footwear Regular Shoe Regular Shoe Pain Scale: 0-10 Numeric Is Patient Pain Free? Yes Yes - Nurse 1 - General Ulcer Measurement Start: 05/19/22 09:17 Freq: Status: Active Protocol: Activity Type Activity Date Activity User E-sign Co-sign Detail Recorded Client Recorded Date Recorded By Document 05/19/22 09:18 AK [id number] 05/19/22 09:26 AK Document 05/26/22 09:19 KR [id number] 05/26/22 09:27 KR 05/19/22 05/26/22 09:18 09:19 Wound Center Nurse 1 #8 Left 2nd Toe -Combined with other wound No -Current Size (cm) - Length 0.1 0.1 -Current Size (cm) - Width 0.1 0.1 -Current Size (cm) - Depth 0.1 0.1 -Total Square Cm 0.01 0.01 -Photo Taken No -Tunneling No -Undermining/Tunneling No -Circular Undermining No -Change in Wound Grade/Stage No -Exudate Amt Small None Present -Exudate Type Serosanguineous -Wound Margin Distinct, Distinct, Outline Outline Attached Attached -Granulation Amt Small (1-33%) Small (1-33%) -Granulation Quality Pale,Speed Speed -Slough/Fibrin No -Necrosis Amt None Present (0 %) -Structure Exposed N/A -Texture (Angie-wound Skin Appearance) Assessed,Callus Assessed, Scarring -Moisture (Angie-wound Skin Appearance) No Abnormality, No Abnormality, Assessed Assessed -Color (Angie-wound Skin Appearance) No Abnormality, No Abnormality, Assessed Assessed -Temperature (Angie-wound Skin No Abnormality No Abnormality Appearance) (Pt Warm) (Pt Warm) -Tenderness on Palpation (Angie-wound No No Skin Appearance) -Ulcer Cleansing Rinsed/ Rinsed/ Irrigated with Irrigated with Saline Saline -Foul Odor after Cleansing No No -Anesthetic Used 5% Lidocaine 4% Lidocaine Gel Solution #7 Left plantar -Combined with other wound No -Current Size (cm) - Length 0.8 0.8 -Current Size (cm) - Width 1.5 1.4 -Current Size (cm) - Depth 0.1 0.1 -Total Square Cm 1.20 1.12 -Photo Taken No -Epithelialization None Present -Tunneling No -Undermining/Tunneling No -Circular Undermining No -Exudate Amt None Present Small -Exudate Type Serosanguineous -Granulation Amt None Present (0 Large (67-100%) %) -Granulation Quality Red Speed -Slough/Fibrin Yes -Necrosis Amt Small (1-33%) None Present (0 %) -Necrotic Tissue Type Adherent Slough -Structure Exposed N/A -Texture (Angie-wound Skin Appearance) Assessed,Callus Assessed, Scarring -Moisture (Angie-wound Skin Appearance) No Abnormality, No Abnormality, Assessed Assessed -Color (Angie-wound Skin Appearance) No Abnormality, No Abnormality, Assessed Assessed -Temperature (Angie-wound Skin No Abnormality No Abnormality Appearance) (Pt Warm) (Pt Warm) -Tenderness on Palpation (Angie-wound No No Skin Appearance) -Ulcer Cleansing Rinsed/ Rinsed/ Irrigated with Irrigated with Saline Saline -Foul Odor after Cleansing No No -Anesthetic Used 4% Lidocaine 4% Lidocaine Solution Solution #6 Right 5th Toe -Combined with other wound No -Current Size (cm) - Length 0.5 0.2 -Current Size (cm) - Width 0.5 0.2 -Current Size (cm) - Depth 0.2 0.2 -Total Square Cm 0.25 0.04 -Photo Taken No -Tunneling No -Undermining/Tunneling No -Circular Undermining No -Change in Wound Grade/Stage No -Exudate Amt Small Small -Exudate Type Serosanguineous Serosanguineous -Wound Margin Distinct, Distinct, Outline Outline Attached Attached -Granulation Amt Medium (34-66%) Large (67-100%) -Granulation Quality Speed Red -Slough/Fibrin Yes -Necrosis Amt Small (1-33%) None Present (0 %) -Necrotic Tissue Type Adherent Slough -Structure Exposed N/A -Texture (Angie-wound Skin Appearance) Assessed,Callus Assessed, Scarring -Moisture (Angie-wound Skin Appearance) No Abnormality, No Abnormality, Assessed Assessed -Color (Angie-wound Skin Appearance) No Abnormality, No Abnormality, Assessed Assessed -Temperature (Angie-wound Skin No Abnormality No Abnormality Appearance) (Pt Warm) (Pt Warm) -Tenderness on Palpation (Angie-wound No No Skin Appearance) -Ulcer Cleansing Rinsed/ Rinsed/ Irrigated with Irrigated with Saline Saline -Foul Odor after Cleansing No No -Anesthetic Used 5% Lidocaine 4% Lidocaine Gel Solution WC - Nurse 2 - General Ulcer CM Notes Start: 05/19/22 09:17 Freq: Status: Active Protocol: Activity Type Activity Date Activity User E-sign Co-sign Detail Recorded Client Recorded Date Recorded By Document 05/19/22 09:32 MW [id number] 05/19/22 09:48 MW Document 05/26/22 09:33 MW [id number] 05/26/22 09:44 MW 05/19/22 05/26/22 09:32 09:33 Wound Center Nurse 2 #8 Left 2nd Toe -Time 09:35 09:34 -Correct Patient Yes Yes -Correct Side, Site, Position Yes Yes -Correct Procedure Yes Yes -Procedure Performed Yes No -Type of Procedure Debridement -Clinical Debridement Subcutaneous -Tissue Removed Subcutaneous -Post Debridement (cm) - Length 0.3 0 -Post Debridement (cm) - Width 0.2 0 -Post Debridement (cm) - Depth 0.1 0 -Total Square (Post) (cm) 0.06 0 -Area of Debridement (cm) - Length 0.3 -Area of Debridement (cm) - Width 0.2 -Total Square (Area) (cm) 0.06 -Tunneling No No -Undermining/Tunneling No No -Circular Undermining No No -Wound/Ulcer Outcome Not Healed Healed- Epithelialized -Ulcer Cleansing Rinsed/ Irrigated with Saline -Foul Odor after Cleansing No -Bioengineered Tissue No -Bleeding Controlled with Pressure -Treatment Response Procedure Tolerated Well -Offloading No -Debridement - Subq, 1st 20sq cm Yes #7 Left plantar -Time 09:35 09:34 -Correct Patient Yes Yes -Correct Side, Site, Position Yes Yes -Correct Procedure Yes Yes -Procedure Performed Yes Yes -Type of Procedure Debridement Debridement -Clinical Debridement Subcutaneous Subcutaneous -Tissue Removed Subcutaneous Subcutaneous -Post Debridement (cm) - Length 1.4 1.2 -Post Debridement (cm) - Width 1.8 1.4 -Post Debridement (cm) - Depth 0.2 0.1 -Total Square (Post) (cm) 2.52 1.68 -Area of Debridement (cm) - Length 1.4 1.2 -Area of Debridement (cm) - Width 1.8 1.4 -Total Square (Area) (cm) 2.52 1.68 -Tunneling No No -Undermining/Tunneling No No -Circular Undermining No No -Wound/Ulcer Outcome Not Healed Not Healed -Ulcer Cleansing Rinsed/ Rinsed/ Irrigated with Irrigated with Saline Saline -Foul Odor after Cleansing No No -Bioengineered Tissue Yes Yes -Type of Bioengineered Tissue Epifix Epifix 18mm Disc -Expiration Date 01/12/27 03/14/27 -Product Lot Number [id number] -Percent Used 100 100 -Lot number of Saline Used [id number] -Bleeding Controlled with Pressure Pressure -Treatment Response Procedure Procedure Tolerated Well Tolerated Well -Offloading No No -Debridement - Subq, 1st 20sq cm No No -Apply Skin Sub - 1st 25 sq cm - Feet 1 1 -Epifix (per sq cm) 4 -Epifix 18mm Disc 3 #6 Right 5th Toe -Time 09:35 09:35 -Correct Patient Yes Yes -Correct Side, Site, Position Yes Yes -Correct Procedure Yes Yes -Procedure Performed Yes Yes -Type of Procedure Debridement Debridement -Clinical Debridement Subcutaneous Subcutaneous -Tissue Removed Subcutaneous Subcutaneous -Post Debridement (cm) - Length 0.5 0.3 -Post Debridement (cm) - Width 0.5 0.3 -Post Debridement (cm) - Depth 0.2 0.2 -Total Square (Post) (cm) 0.25 0.09 -Area of Debridement (cm) - Length 0.5 0.3 -Area of Debridement (cm) - Width 0.5 0.3 -Total Square (Area) (cm) 0.25 0.09 -Tunneling No No -Undermining/Tunneling No No -Circular Undermining No No -Wound/Ulcer Outcome Not Healed Not Healed -Ulcer Cleansing Rinsed/ Rinsed/ Irrigated with Irrigated with Saline Saline -Foul Odor after Cleansing No No -Bioengineered Tissue No No -Bleeding Controlled with Pressure Pressure -Treatment Response Procedure Procedure Tolerated Well Tolerated Well -Offloading No No -Debridement - Subq, 1st 20sq cm No Yes Pain Scale: 0-10 Numeric Is Patient Pain Free? Yes Yes WC - Nurse 3 - General Ulcer D/C NN Start: 05/19/22 09:17 Freq: Status: Active Protocol: Activity Type Activity Date Activity User E-sign Co-sign Detail Recorded Client Recorded Date Recorded By Document 05/19/22 10:07 ML [id number] 05/19/22 10:09 ML Document 05/26/22 10:55 [id number] [id number] 05/26/22 10:56 KR 05/19/22 05/26/22 10:07 10:55 Wound Care Nurse 3 #8 Left 2nd Toe -Primary Dressing Applied Aquacel Extra -Primary Dressing Covered/Secured with Dry Gauze & Roll Gauze, Secured with Tape -Aquacel Extra 1 #7 Left plantar -Primary Dressing Applied Aquacel Extra Aquacel Extra -Primary Dressing Covered/Secured with Dry Gauze & Dry Gauze, Roll Gauze, Secured with Secured with Tape Tape -Aquacel Extra 0 1 #6 Right 5th Toe -Primary Dressing Applied Aquacel Extra -Primary Dressing Covered/Secured with Dry Gauze & Dry Gauze, Roll Gauze, Secured with Secured with Tape Tape -Aquacel Extra 0 Right -Tubular Bandage Single Layer -Size of Tubigrip Used Size F -Size F ($) 1 Left -Tubular Bandage Single Layer -Size of Tubigrip Used Size F -Size F ($) 1 Vital Signs Temperature Source Oral Pain Scale: 0-10 Numeric Is Patient Pain Free? Yes Yes WC - Visit Discharge Discharge Condition Stable Ambulatory Status Ambulatory Transportation Private Auto Additional Wound Wound debrided: Right fifth toe Laterality: Right Type of Debridement: Excisional debridement Anesthesia Used: 4% Lidocaine Solution and 5% Lidocaine Gel Depth: Down to and including healthy tissue Percentage of wound debrided: 100 Instrument Used: 5mm curette Tissue Removed: Fibrin Severity: Limited To Skin Breakdown Amount of bleeding with debridement: Mild Bleeding Controlled with: Compression and gauze Patient tolerated procedure: Patient tolerated procedure well Assessment/Plan Assessment/Plan (1) 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 (2) Decubitus ulcer limited to breakdown of skin (stage 2): CODE(S): L89.92 - Pressure ulcer of unspecified site, stage 2 QUALIFIERS: Pressure injury location: toe Laterality: left Qualified Code(s): L89.892 - Pressure ulcer of other site, stage 2 PLAN: Epi fix #5 applied to left plantar and R little toe areas covered with wound veil and Steri-Strips gauze and tape Left second toe resolved Continue Flagyl 250 mg twice daily for 14 days and fluconazole 100 mg every day also linezolid 600 mg twice daily for 14 days Patient is not to get them wet and follow-up in 1 week
[2022-06-02 09:13] VITALS: BP 146/63; PULSE 69; TEMP 36.3
--- NOTE | 2022-06-02 12:07 | PN.PCM_ITS ---
History of Present Illness Date of Service: 06/02/22 Chief Complaint: Follow-up on right fifth toe plantar side left plantar great toe and left plantar second toe. History of Wound: 76-year-old white male with previous history of amputations of the toes. Appears with increase in wounds to the toes for the last 6 weeks at least. He has been seen by his own gang drill operator Dr. Nguyen and he referred him to here. He is currently using Aquacel to his wounds. His usually helps with dressing changes without a problem. Progress of Wound: All wounds today are totally much better from last week. Continues to finish his antibiotic therapy. Left second toe is healed we are just dealing with the left plantar ulcer and the right fifth toe. Subjective Subjective Patient states right fifth toe was draining pus over the weekend. Objective Data Objective Data Noted a callus blistered over the left toe and might be where it was draining from. Debrided off good skin underneath no sign of infection toe looks good color. We will continue using epi fix #6. Vital Signs: Vital Signs Temp Pulse Resp BP 97.4 F L 69 17 146/63 H 06/02/22 09:13 06/02/22 09:13 05/14/22 00:46 06/02/22 09:13 Lab / Micro Data Attestation: I reviewed the patient's lab results. Physical Exam Const oriented x3 General Appearance: cooperative Exam Limitations: no limitations Resp normal respiratory effort Effort and Inspection: able to speak in complete sentences Auscultation: clear to auscultation bilaterally Cardio regular rate and regular rhythm Palpation: normal PMI Rate: regular rate Rhythm: regular rhythm GI Auscultation: normoactive bowel sounds Palpation: soft and no hepatosplenomegaly Extremity normal to inspection General Extremity: normal exam except as noted Skin no rashes or lesions noted Wound Narrative: Open wounds with callus around on the right fifth toe plantar left second toe plantar and left great toe plantar with all with open wounds also. Neuro oriented x3 Psych Appearance: grossly normal Speech: normal speech Thought Content: normal thought content Judgement: judgement good Debridement Note Debridement Note Wound debrided: Right fifth toe Laterality: Right Wound Grade/Stage: Stage II Type of Debridement: Excisional debridement Anesthesia Used: 5% Lidocaine Gel Depth: Down to and including healthy tissue Percentage of wound debrided: 100 Instrument Used: 5mm curette Tissue Removed: Fibrin Severity: Limited To Skin Breakdown Amount of bleeding with debridement: None Patient tolerated procedure: Patient tolerated procedure well Post-Debridement Measurements and Additional Note: Post-Debridement Measurements/Treatment - Nurse 1 - General Ulcer Assessment Start: 05/19/22 09:17 Freq: Status: Active Protocol: REMA Activity Type Activity Date Activity User E-sign Co-sign Detail Recorded Client Recorded Date Recorded By Document 05/19/22 09:18 AK [id number] 05/19/22 09:26 AK Document 05/26/22 09:19 KR [id number] 05/26/22 09:27 KR Document 06/02/22 09:13 KR [id number] 06/02/22 09:17 KR 05/19/22 05/26/22 06/02/22 09:18 09:19 09:13 - Today's Visit Information Type of service Follow-up Visit Follow-up Visit Follow-up Visit (Physician/INDUSTRIAL PHOTOGRAPHER (Physician/INDUSTRIAL PHOTOGRAPHER (Physician/INDUSTRIAL PHOTOGRAPHER ) ) ) Arrival Mode Ambulatory Ambulatory Ambulatory Patient Identification Verified (Name & Yes Yes Yes ) Patient Requires Transmission-Based No Precautions Safety Precautions NA Vital Signs Temperature (97.8 F-99.1 F) 97.2 F L 96.8 F L 97.4 F L Temperature Source Temporal Temporal Temporal Pulse Rate (60-100) 57 L 68 69 Pulse Location Monitor Monitor Monitor Blood Pressure (90/60-120/80) 109/76 153/72 H 146/63 H Blood Pressure Mean (mm Hg) 87 99 90 Source Monitor Monitor Monitor Position Semi-Fowlers Semi-Fowlers Blood Pressure Location Right Arm Left Arm History Since Last Visit- (Skip if this is Patient's initial visit) Have you changed medications since your No No No last visit? Any new allergies or adverse reactions No No No Had a fall/change in ADL's that may No No No increase risk of falls Signs or symptoms of abuse and/or No No No neglect since last visit Have you been in the hospital since your No No No last visit? Has dressing in place as prescribed Yes Yes Yes Has compression in place as prescribed No N/A Yes Has offloadiing in place as prescribed N/A N/A N/A Experienced any changes in pain level or No No No management Left Footwear Regular Shoe Regular Shoe Regular Shoe Right Footwear Regular Shoe Regular Shoe Regular Shoe Pain Scale: 0-10 Numeric Is Patient Pain Free? Yes Yes Yes WC - Nurse 1 - General Ulcer Measurement Start: 05/19/22 09:17 Freq: Status: Active Protocol: Activity Type Activity Date Activity User E-sign Co-sign Detail Recorded Client Recorded Date Recorded By Document 05/19/22 09:18 AK [id number] 05/19/22 09:26 AK Document 05/26/22 09:19 KR [id number] 05/26/22 09:27 KR Document 06/02/22 09:13 KR [id number] 06/02/22 09:17 KR 05/19/22 05/26/22 06/02/22 09:18 09:19 09:13 Wound Center Nurse 1 #8 Left 2nd Toe -Combined with other wound No -Current Size (cm) - Length 0.1 0.1 -Current Size (cm) - Width 0.1 0.1 -Current Size (cm) - Depth 0.1 0.1 -Total Square Cm 0.01 0.01 -Photo Taken No -Tunneling No -Undermining/Tunneling No -Circular Undermining No -Change in Wound Grade/Stage No -Exudate Amt Small None Present -Exudate Type Serosanguineous -Wound Margin Distinct, Distinct, Outline Outline Attached Attached -Granulation Amt Small (1-33%) Small (1-33%) -Granulation Quality Pale,[place] -Slough/Fibrin No -Necrosis Amt None Present (0 %) -Structure Exposed N/A -Texture (Angie-wound Skin Appearance) Assessed,Callus Assessed, Scarring -Moisture (Angie-wound Skin Appearance) No Abnormality, No Abnormality, Assessed Assessed -Color (Angie-wound Skin Appearance) No Abnormality, No Abnormality, Assessed Assessed -Temperature (Angie-wound Skin No Abnormality No Abnormality Appearance) (Pt Warm) (Pt Warm) -Tenderness on Palpation (Angie-wound No No Skin Appearance) -Ulcer Cleansing Rinsed/ Rinsed/ Irrigated with Irrigated with Saline Saline -Foul Odor after Cleansing No No -Anesthetic Used 5% Lidocaine 4% Lidocaine Gel Solution #7 Left plantar -Combined with other wound No -Current Size (cm) - Length 0.8 0.8 1.2 -Current Size (cm) - Width 1.5 1.4 1.5 -Current Size (cm) - Depth 0.1 0.1 0.1 -Total Square Cm 1.20 1.12 1.80 -Photo Taken No -Epithelialization None Present -Tunneling No -Undermining/Tunneling No -Circular Undermining No -Exudate Amt None Present Small Small -Exudate Type Serosanguineous Serosanguineous -Wound Margin Distinct, Outline Attached -Granulation Amt None Present (0 Large (67-100%) Large (67-100%) %) -Granulation Quality Red [place],Red -Slough/Fibrin Yes -Necrosis Amt Small (1-33%) None Present (0 None Present (0 %) %) -Necrotic Tissue Type Adherent Slough -Structure Exposed N/A -Texture (Angie-wound Skin Appearance) Assessed,Callus Assessed, Assessed, Scarring Scarring -Moisture (Angie-wound Skin Appearance) No Abnormality, No Abnormality, No Abnormality, Assessed Assessed Assessed -Color (Angie-wound Skin Appearance) No Abnormality, No Abnormality, No Abnor mality, Assessed Assessed Assessed -Temperature (Angie-wound Skin No Abnormality No Abnormality No Abnormality Appearance) (Pt Warm) (Pt Warm) (Pt Warm) -Tenderness on Palpation (Angie-wound No No No Skin Appearance) -Ulcer Cleansing Rinsed/ Rinsed/ Rinsed/ Irrigated with Irrigated with Irrigated with Saline Saline Saline -Foul Odor after Cleansing No No No -Anesthetic Used 4% Lidocaine 4% Lidocaine 5% Lidocaine Solution Solution Gel #6 Right 5th Toe -Combined with other wound No -Current Size (cm) - Length 0.5 0.2 0.1 -Current Size (cm) - Width 0.5 0.2 0.1 -Current Size (cm) - Depth 0.2 0.2 0.1 -Total Square Cm 0.25 0.04 0.01 -Photo Taken No -Tunneling No -Undermining/Tunneling No -Circular Undermining No -Change in Wound Grade/Stage No -Exudate Amt Small Small Small -Exudate Type Serosanguineous Serosanguineous Serosanguineous -Wound Margin Distinct, Distinct, Distinct, Outline Outline Outline Attached Attached Attached -Granulation Amt Medium (34-66%) Large (67-100%) Small (1-33%) -Granulation Quality [place] -Slough/Fibrin Yes -Necrosis Amt Small (1-33%) None Present (0 Small (1-33%) %) -Necrotic Tissue Type Adherent Slough -Structure Exposed N/A -Texture (Angie-wound Skin Appearance) Assessed,Callus Assessed, Assessed, Scarring Scarring -Moisture (Angie-wound Skin Appearance) No Abnormality, No Abnormality, No Abnormality, Assessed Assessed Assessed -Color (Angie-wound Skin Appearance) No Abnormality, No Abnormality, No Abnormality, Assessed Assessed Assessed -Temperature (Angie-wound Skin No Abnormality No Abnormality No Abnormality Appearance) (Pt Warm) (Pt Warm) (Pt Warm) -Tenderness on Palpation (Angie-wound No No No Skin Appearance) -Ulcer Cleansing Rinsed/ Rinsed/ Rinsed/ Irrigated with Irrigated with Irrigated with Saline Saline Saline -Foul Odor after Cleansing No No No -Anesthetic Used 5% Lidocaine 4% Lidocaine 5% Lidocaine Gel Solution Gel WC - Nurse 2 - General Ulcer CM Notes Start: 05/19/22 09:17 Freq: Status: Active Protocol: Activity Type Activity Date Activity User E-sign Co-sign Detail Recorded Client Recorded Date Recorded By Document 05/19/22 09:32 MW [id number] 05/19/22 09:48 MW Document 05/26/22 09:33 MW [id number] 05/26/22 09:44 MW Document 06/02/22 09:41 MW [id number] 06/02/22 09:49 MW 05/19/22 05/26/22 06/02/22 09:32 09:33 09:41 Wound Center Nurse 2 #8 Left 2nd Toe -Time 09:35 09:34 -Correct Patient Yes Yes -Correct Side, Site, Position Yes Yes -Correct Procedure Yes Yes -Procedure Performed Yes No -Type of Procedure Debridement -Clinical Debridement Subcutaneous -Tissue Removed Subcutaneous -Post Debridement (cm) - Length 0.3 0 -Post Debridement (cm) - Width 0.2 0 -Post Debridement (cm) - Depth 0.1 0 -Total Square (Post) (cm) 0.06 0 -Area of Debridement (cm) - Length 0.3 -Area of Debridement (cm) - Width 0.2 -Total Square (Area) (cm) 0.06 -Tunneling No No -Undermining/Tunneling No No -Circular Undermining No No -Wound/Ulcer Outcome Not Healed Healed- Epithelialized -Ulcer Cleansing Rinsed/ Irrigated with Saline -Foul Odor after Cleansing No -Bioengineered Tissue No -Bleeding Controlled with Pressure -Treatment Response Procedure Tolerated Well -Offloading No -Debridement - Subq, 1st 20sq cm Yes #7 Left plantar -Time 09:35 09:34 09:41 -Correct Patient Yes Yes Yes -Correct Side, Site, Position Yes Yes Yes -Correct Procedure Yes Yes Yes -Procedure Performed Yes Yes Yes -Type of Procedure Debridement Debridement Debridement -Clinical Debridement Subcutaneous Subcutaneous Subcutaneous -Tissue Removed Subcutaneous Subcutaneous Subcutaneous -Post Debridement (cm) - Length 1.4 1.2 1.3 -Post Debridement (cm) - Width 1.8 1.4 1.5 -Post Debridement (cm) - Depth 0.2 0.1 0.1 -Total Square (Post) (cm) 2.52 1.68 1.95 -Area of Debridement (cm) - Length 1.4 1.2 1.3 -Area of Debridement (cm) - Width 1.8 1.4 1.5 -Total Square (Area) (cm) 2.52 1.68 1.95 -Tunneling No No No -Undermining/Tunneling No No No -Circular Undermining No No No -Wound/Ulcer Outcome Not Healed Not Healed Not Healed -Ulcer Cleansing Rinsed/ Rinsed/ Rinsed/ Irrigated with Irrigated with Irrigated with Saline Saline Saline -Foul Odor after Cleansing No No No -Bioengineered Tissue Yes Yes Yes -Type of Bioengineered Tissue Epifix Epifix 18mm Epifix 18mm Disc Disc -Expiration Date 01/12/27 03/14/27 03/14/27 -Product Lot Number [id number] -Percent Used 100 100 100 -Lot number of Saline Used [id number] -Bleeding Controlled with Pressure Pressure Pressure -Treatment Response Procedure Procedure Procedure Tolerated Well Tolerated Well Tolerated Well -Offloading No No No -Debridement - Subq, 1st 20sq cm No No No -Apply Skin Sub - 1st 25 sq cm - Feet 1 1 -Epifix (per sq cm) 4 -Epifix 18mm Disc 3 3 #6 Right 5th Toe -Time 09:35 09:35 09:41 -Correct Patient Yes Yes Yes -Correct Side, Site, Position Yes Yes Yes -Correct Procedure Yes Yes Yes -Procedure Performed Yes Yes Yes -Type of Procedure Debridement Debridement Debridement -Clinical Debridement Subcutaneous Subcutaneous Subcutaneous -Tissue Removed Subcutaneous Subcutaneous Subcutaneous -Post Debridement (cm) - Length 0.5 0.3 0.2 -Post Debridement (cm) - Width 0.5 0.3 0.1 -Post Debridement (cm) - Depth 0.2 0.2 0.1 -Total Square (Post) (cm) 0.25 0.09 0.02 -Area of Debridement (cm) - Length 0.5 0.3 0.2 -Area of Debridement (cm) - Width 0.5 0.3 0.1 -Total Square (Area) (cm) 0.25 0.09 0.02 -Tunneling No No No -Undermining/Tunneling No No No -Circular Undermining No No No -Wound/Ulcer Outcome Not Healed Not Healed Not Healed -Ulcer Cleansing Rinsed/ Rinsed/ Rinsed/ Irrigated with Irrigated with Irrigated with Saline Saline Saline -Foul Odor after Cleansing No No No -Bioengineered Tissue No No No -Bleeding Controlled with Pressure Pressure Pressure -Treatment Response Procedure Procedure Procedure Tolerated Well Tolerated Well Tolerated Well -Offloading No No No -Debridement - Subq, 1st 20sq cm No Yes Yes Pain Scale: 0-10 Numeric Is Patient Pain Free? Yes Yes Yes WC - Nurse 3 - General Ulcer D/C NN Start: 05/19/22 09:17 Freq: Status: Active Protocol: Activity Type Activity Date Activity User E-sign Co-sign Detail Recorded Client Recorded Date Recorded By Document 05/19/22 10:07 ML [id number] 05/19/22 10:09 ML Document 05/26/22 10:55 KR [id number] 05/26/22 10:56 KR Document 06/02/22 09:56 KR [id number] 06/02/22 09:56 KR 05/19/22 05/26/22 06/02/22 10:07 10:55 09:56 Wound Care Nurse 3 #8 Left 2nd Toe -Primary Dressing Applied Aquacel Extra -Primary Dressing Covered/Secured with Dry Gauze & Roll Gauze, Secured with Tape -Aquacel Extra 1 #7 Left plantar -Ulcer Cleansing Rinsed/ Irrigated with Saline -Primary Dressing Applied Aquacel Extra Aquacel Extra -Other Dressing abd pad -Primary Dressing Covered/Secured with Dry Gauze & Dry Gauze, Secured with Roll Gauze, Secured with Tape Secured with Tape Tape -Aquacel Extra 0 1 #6 Right 5th Toe -Ulcer Cleansing Rinsed/ Irrigated with Saline -Primary Dressing Applied Aquacel Extra Aquacel AG 4x4 -Primary Dressing Covered/Secured with Dry Gauze & Dry Gauze, Dry Gauze,Dry Roll Gauze, Secured with Gauze & Roll Secured with Tape Gauze,Secured Tape with Tape -Aquacel Extra 0 -Aquacel AG 4x4 1 Right -Tubular Bandage Single Layer -Size of Tubigrip Used Size F -Size F ($) 1 Left -Tubular Bandage Single Layer -Size of Tubigrip Used Size F -Size F ($) 1 Vital Signs Temperature Source Oral Pain Scale: 0-10 Numeric Is Patient Pain Free? Yes Yes Yes WC - Visit Discharge Discharge Condition Stable Stable Ambulatory Status Ambulatory Ambulatory Transportation Private Auto Private Auto Additional Wound Wound debrided: Left plantar foot Laterality: Left Wound Grade/Stage: Stage II Type of Debridement: Excisional debridement Anesthesia Used: 5% Lidocaine Gel Depth: in the subcutaneous layer Percentage of wound debrided: 100 Instrument Used: 5mm curette Tissue Removed: Fibrin Severity: Limited To Skin Breakdown Amount of bleeding with debridement: Mild Bleeding Controlled with: Compression and gauze Patient tolerated procedure: Patient tolerated procedure well Assessment/Plan Assessment/Plan (1) 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 (2) Decubitus ulcer limited to breakdown of skin (stage 2): CODE(S): L89.92 - Pressure ulcer of unspecified site, stage 2 QUALIFIERS: Pressure injury location: toe Laterality: left Qualified Code(s): L89.892 - Pressure ulcer of other site, stage 2 PLAN: Epi fix #6 applied to left plantar and R little toe areas covered with wound veil and Steri-Strips gauze and tape Left second toe resolved Patient is not to get them wet and follow-up in 1 week
[2022-06-09 09:19] VITALS: BP 142/61; PULSE 78; TEMP 36.2
--- NOTE | 2022-06-09 10:30 | RAD_ITS ---
STUDY: X-RAY - LEFT FOOT CLINICAL: Male, 76 years old. Diabetic wound. TECHNIQUE: 3 view(s) of the foot. COMPARISON: 09/17/2021 FINDINGS: Stable osteopenia. Moderate osteoarthritic changes of the MTP and IP joints with flexion deformities. Stable diffuse soft tissue swelling. No definite bony erosion to suggest osteomyelitis. RAD/Foot min 3 Views IMPRESSION: Stable osteopenia with osteoarthritic changes and soft tissue swelling. No radiographic evidence of osteomyelitis. Electronically Signed: Navid Oconnor MD at 9:47 EDT ,
--- NOTE | 2022-06-09 10:30 | RAD_ITS ---
STUDY: X-RAY - RIGHT FOOT CLINICAL: Male, 76 years old. Diabetic wound. TECHNIQUE: 3 view(s) of the foot. COMPARISON: 02/22/2022. FINDINGS: Stable osteopenia. Resection of the distal aspect of the proximal phalanx and distal phalanx of the first digit unaltered. Resection of the distal phalanges of the third, fourth and fifth digits unaltered. No bone erosion to suggest osteomyelitis. RAD/Foot min 3 Views IMPRESSION: Stable osteopenia with osteoarthritic and postsurgical changes. No bone erosion to suggest osteomyelitis. Electronically Signed: Navid Oconnor MD at 9:50 EDT ,
--- NOTE | 2022-06-09 11:15 | PN.PCM_ITS ---
History of Present Illness Date of Service: 06/09/22 Chief Complaint: Follow-up on right fifth toe plantar side left plantar great toe and left plantar second toe. History of Wound: 76-year-old white male with previous history of amputations of the toes. Appears with increase in wounds to the toes for the last 6 weeks at least. He has been seen by his own tire specialist Dr. Nguyen and he referred him to here. He is currently using Aquacel to his wounds. His usually helps with dressing changes without a problem. Progress of Wound: So the left second toe developed another callus and opened again. The left plantar had a lot of callus around the edge today cleared and off.. The right little toe still gets a lot of callus and debrided down to new skin thereto. Worried about osteomyelitis. We will maryam-ray both feet. We will hold on the epi fix this week and just go back to Aquacel extra dressing changes daily. Wait for the x-ray results. Cultures were obtained from the plantar ulcer Subjective Subjective concerned about the drainage from the left plantar ball of the foot wound. It he had some green drainage Objective Data Objective Data I thought the wounds did not look bad but the left second toe just keeps getting a callus and then opening. So we discussed about his shoes he needs to get used to his new shoes or get a wider pair shoes because I feel like these are pressure areas from the shoe. Vital Signs: Vital Signs Temp Pulse Resp BP 97.2 F L 78 17 142/61 H 06/09/22 09:19 06/09/22 09:19 05/14/22 00:46 06/09/22 09:19 Physical Exam Const oriented x3 General Appearance: cooperative Exam Limitations: no limitations Resp normal respiratory effort Effort and Inspection: able to speak in complete sentences Auscultation: clear to auscultation bilaterally Cardio regular rate and regular rhythm Palpation: normal PMI Rate: regular rate Rhythm: regular rhythm GI Auscultation: normoactive bowel sounds Palpation: soft and no hepatosplenomegaly Extremity normal to inspection General Extremity: normal exam except as noted Skin no rashes or lesions noted Wound Narrative: Open wounds with callus around on the right fifth toe plantar left second toe plantar and left great toe plantar with all with open wounds also. Neuro oriented x3 Psych Appearance: grossly normal Speech: normal speech Thought Content: normal thought content Judgement: judgement good Debridement Note Debridement Note Wound debrided: Left plantar ball of foot Laterality: Left Wound Grade/Stage: Stage II Type of Debridement: Excisional debridement Anesthesia Used: 5% Lidocaine Gel Depth: in the subcutaneous layer Percentage of wound debrided: 100 Instrument Used: 5mm curette Tissue Removed: Fibrin and devitalized tissue Severity: Fat Layer Exposed Amount of bleeding with debridement: Mild Bleeding Controlled with: Compression and gauze Patient tolerated procedure: Patient tolerated procedure well Post-Debridement Measurements and Additional Note: Post-Debridement Measurements/Treatment - Nurse 1 - General Ulcer Assessment Start: 05/19/22 09:17 Freq: Status: Active Protocol: [facility] Activity Type Activity Date Activity User E-sign Co-sign Detail Recorded Client Recorded Date Recorded By Document 05/19/22 09:18 AK [id number] 05/19/22 09:26 AK Document 05/26/22 09:19 KR [id number] 05/26/22 09:27 KR Document 06/02/22 09:13 KR [id number] 06/02/22 09:17 KR Document 06/09/22 09:19 KR [id number] 06/09/22 09:27 KR 05/19/22 05/26/22 06/02/22 09:18 09:19 09:13 - Today's Visit Information Type of service Follow-up Visit Follow-up Visit Follow-up Visit (Physician/[facility] (Physician/[facility] [facility] (Physician/[facility] ) ) ) Arrival Mode Ambulatory Ambulatory Ambulatory Patient Identification Verified (Name & Yes Yes Yes ) Patient Requires Transmission-Based No Precautions Safety Precautions NA Vital Signs Temperature (97.8 F-99.1 F) 97.2 F L 96.8 F L 97.4 F L Temperature Source Temporal Temporal Temporal Pulse Rate (60-100) 57 L 68 69 Pulse Location Monitor Monitor Monitor Blood Pressure (90/60-120/80) 109/76 153/72 H 146/63 H Blood Pressure Mean (mm Hg) 87 99 90 Source Monitor Monitor Monitor Position Semi-Fowlers Semi-Fowlers Blood Pressure Location Right Arm Left Arm History Since Last Visit- (Skip if this is Patient's initial visit) Have you changed medications since your No No No last visit? Any new allergies or adverse reactions No No No Had a fall/change in ADL's that may No No No increase risk of falls Signs or symptoms of abuse and/or No No No neglect since last visit Have you been in the hospital since your No No No last visit? Has dressing in place as prescribed Yes Yes Yes Has compression in place as prescribed No N/A Yes Has offloadiing in place as prescribed N/A N/A N/A Experienced any changes in pain level or No No No management Left Footwear Regular Shoe Regular Shoe Regular Shoe Right Footwear Regular Shoe Regular Shoe Regular Shoe Pain Scale: 0-10 Numeric Is Patient Pain Free? Yes Yes Yes 06/09/22 09:19 WC - Today's Visit Information Type of service Follow-up Visit (Physician/[facility] [facility] ) Arrival Mode Ambulatory Patient Identification Verified (Name & Yes ) Patient Requires Transmission-Based Precautions Safety Precautions Vital Signs Temperature (97.8 F-99.1 F) 97.2 F L Temperature Source Temporal Pulse Rate (60-100) 78 Pulse Location Monitor Blood Pressure (90/60-120/80) 142/61 H Blood Pressure Mean (mm Hg) 88 Source Monitor Position Semi-Fowlers Blood Pressure Location Right Arm History Since Last Visit- (Skip if this is Patient's initial visit) Have you changed medications since your No last visit? Any new allergies or adverse reactions No Had a fall/change in ADL's that may No increase risk of falls Signs or symptoms of abuse and/or No neglect since last visit Have you been in the hospital since your No last visit? Has dressing in place as prescribed Yes Has compression in place as prescribed Yes Has offloadiing in place as prescribed N/A Experienced any changes in pain level or No management Left Footwear Regular Shoe Right Footwear Regular Shoe Pain Scale: 0-10 Numeric Is Patient Pain Free? Yes - Nurse 1 - General Ulcer Measurement Start: 05/19/22 09:17 Freq: Status: Active Protocol: Activity Type Activity Date Activity User E-sign Co-sign Detail Recorded Client Recorded Date Recorded By Document 05/19/22 09:18 AK [id number] 05/19/22 09:26 AK Document 05/26/22 09:19 KR [id number] 05/26/22 09:27 KR Document 06/02/22 09:13 KR [id number] 06/02/22 09:17 KR Document 06/09/22 09:19 KR [id number] 06/09/22 09:27 KR 05/19/22 05/26/22 06/02/22 09:18 09:19 09:13 Wound Center Nurse 1 #8 Left 2nd Toe -Combined with other wound No -Current Size (cm) - Length 0.1 0.1 -Current Size (cm) - Width 0.1 0.1 -Current Size (cm) - Depth 0.1 0.1 -Total Square Cm 0.01 0.01 -Photo Taken No -Tunneling No -Undermining/Tunneling No -Circular Undermining No -Change in Wound Grade/Stage No -Exudate Amt Small None Present -Exudate Type Serosanguineous -Wound Margin Distinct, Distinct, Outline Outline Attached Attached -Granulation Amt Small (1-33%) Small (1-33%) -Granulation Quality Pale,[place] -Slough/Fibrin No -Necrosis Amt None Present (0 %) -Structure Exposed N/A -Texture (Angie-wound Skin Appearance) Assessed,Callus Assessed, Scarring -Moisture (Angie-wound Skin Appearance) No Abnormality, No Abnormality, Assessed Assessed -Color (Angie-wound Skin Appearance) No Abnormality, No Abnormality, Assessed Assessed -Temperature (Angie-wound Skin No Abnormality No Abnormality Appearance) (Pt Warm) (Pt Warm) -Tenderness on Palpation (Angie-wound No No Skin Appearance) -Ulcer Cleansing Rinsed/ Rinsed/ Irrigated with Irrigated with Saline Saline -Foul Odor after Cleansing No No -Anesthetic Used 5% Lidocaine 4% Lidocaine Gel Solution #9 Left 2nd toe -Current Size (cm) - Length -Current Size (cm) - Width -Current Size (cm) - Depth -Total Square Cm -Exudate Amt -Wound Margin -Granulation Amt -Granulation Quality -Necrosis Amt -Texture (Angie-wound Skin Appearance) -Moisture (Angie-wound Skin Appearance) -Color (Angie-wound Skin Appearance) -Temperature (Angie-wound Skin Appearance) -Tenderness on Palpation (Angie-wound Skin Appearance) -Ulcer Cleansing -Foul Odor after Cleansing -Anesthetic Used #7 Left plantar -Combined with other wound No -Current Size (cm) - Length 0.8 0.8 1.2 -Current Size (cm) - Width 1.5 1.4 1.5 -Current Size (cm) - Depth 0.1 0.1 0.1 -Total Square Cm 1.20 1.12 1.80 -Photo Taken No -Epithelialization None Present -Tunneling No -Undermining/Tunneling No -Circular Undermining No -Exudate Amt None Present Small Small -Exudate Type Serosanguineous Serosanguineous -Wound Margin Distinct, Outline Attached -Granulation Amt None Present (0 Large (67-100%) Large (67-100%) %) -Granulation Quality [place] [employer] [place],Red -Slough/Fibrin Yes -Necrosis Amt Small (1-33%) None Present (0 None Present (0 %) %) -Necrotic Tissue Type Adherent Slough -Structure Exposed N/A -Texture (Angie-wound Skin Appearance) Assessed,Callus Assessed, Assessed, Scarring Scarring -Moisture (Angie-wound Skin Appearance) No Abnormality, No Abnormality, No Abnormality, Assessed Assessed Assessed -Color (Angie-wound Skin Appearance) No Abnormality, No Abnormality, No Abnormality, Assessed Assessed Assessed -Temperature (Angie-wound Skin No Abnormality No Abnormality No Abnormality Appearance) (Pt Warm) (Pt Warm) (Pt Warm) -Tenderness on Palpation (Angie-wound No No No Skin Appearance) -Ulcer Cleansing Rinsed/ Rinsed/ Rinsed/ Irrigated with Irrigated with Irrigated with Saline Saline Saline -Foul Odor after Cleansing No No No -Anesthetic Used 4% Lidocaine 4% Lidocaine 5% Lidocaine Solution Solution Gel #6 Right 5th Toe -Combined with other wound No -Current Size (cm) - Length 0.5 0.2 0.1 -Current Size (cm) - Width 0.5 0.2 0.1 -Current Size (cm) - Depth 0.2 0.2 0.1 -Total Square Cm 0.25 0.04 0.01 -Photo Taken No -Tunneling No -Undermining/Tunneling No -Circular Undermining No -Change in Wound Grade/Stage No -Exudate Amt Small Small Small -Exudate Type Serosanguineous Serosanguineous Serosanguineous -Wound Margin Distinct, Distinct, Distinct, Outline Outline Outline Attached Attached Attached -Granulation Amt Medium (34-66%) Large (67-100%) Small (1-33%) -Granulation Quality [employer] [place] [employer] [place] -Slough/Fibrin Yes -Necrosis Amt Small (1-33%) None Present (0 Small (1-33%) %) -Necrotic Tissue Type Adherent Slough -Structure Exposed N/A -Texture (Angie-wound Skin Appearance) Assessed,Callus Assessed, Assessed, Scarring Scarring -Moisture (Angie-wound Skin Appearance) No Abnormality, No Abnormality, No Abnormality, Assessed Assessed Assessed -Color (Angie-wound Skin Appearance) No Abnormality, No Abnormality, No Abnormality, Assessed Assessed Assessed -Temperature (Angie-wound Skin No Abnormality No Abnormality No Abnormality Appearance) (Pt Warm) (Pt Warm) (Pt Warm) -Tenderness on Palpation (Angie-wound No No No Skin Appearance) -Ulcer Cleansing Rinsed/ Rinsed/ Rinsed/ Irrigated with Irrigated with Irrigated with Saline Saline Saline -Foul Odor after Cleansing No No No -Anesthetic Used 5% Lidocaine 4% Lidocaine 5% Lidocaine Gel Solution Gel 06/09/22 09:19 Wound Center Nurse 1 #8 Left 2nd Toe -Combined with other wound -Current Size (cm) - Length -Current Size (cm) - Width -Current Size (cm) - Depth -Total Square Cm -Photo Taken -Tunneling -Undermining/Tunneling -Circular Undermining -Change in Wound Grade/Stage -Exudate Amt -Exudate Type -Wound Margin -Granulation Amt -Granulation Quality -Slough/Fibrin -Necrosis Amt -Structure Exposed -Texture (Angie-wound Skin Appearance) -Moisture (Angie-wound Skin Appearance) -Color (Angie-wound Skin Appearance) -Temperature (Angie-wound Skin Appearance) -Tenderness on Palpation (Angie-wound Skin Appearance) -Ulcer Cleansing -Foul Odor after Cleansing -Anesthetic Used #9 Left 2nd toe -Current Size (cm) - Length 0.2 -Current Size (cm) - Width 0.2 -Current Size (cm) - Depth 0.1 -Total Square Cm 0.04 -Exudate Amt None Present -Wound Margin Distinct, Outline Attached -Granulation Amt Small (1-33%) -Granulation Quality [employer] [place] -Necrosis Amt None Present (0 %) -Texture (Angie-wound Skin Appearance) Assessed, Scarring -Moisture (Angie-wound Skin Appearance) No Abnormality, Assessed -Color (Angie-wound Skin Appearance) No Abnormality, Assessed -Temperature (Angie-wound Skin No Abnormality Appearance) (Pt Warm) -Tenderness on Palpation (Angie-wound No Skin Appearance) -Ulcer Cleansing Rinsed/ Irrigated with Saline -Foul Odor after Cleansing No -Anesthetic Used 5% Lidocaine Gel #7 Left plantar -Combined with other wound -Current Size (cm) - Length 1.1 -Current Size (cm) - Width 1.6 -Current Size (cm) - Depth 0.2 -Total Square Cm 1.76 -Photo Taken -Epithelialization -Tunneling -Undermining/Tunneling -Circular Undermining -Exudate Amt Small -Exudate Type Yellow/Green -Wound Margin Distinct, Outline Attached -Granulation Amt Medium (34-66%) -Granulation Quality Red -Slough/Fibrin -Necrosis Amt Small (1-33%) -Necrotic Tissue Type Adherent Slough -Structure Exposed -Texture (Angie-wound Skin Appearance) Assessed, Scarring -Moisture (Angie-wound Skin Appearance) No Abnormality, Assessed -Color (Angie-wound Skin Appearance) No Abnormality, Assessed -Temperature (Angie-wound Skin No Abnormality Appearance) (Pt Warm) -Tenderness on Palpation (Angie-wound No Skin Appearance) -Ulcer Cleansing Rinsed/ Irrigated with Saline -Foul Odor after Cleansing No -Anesthetic Used 5% Lidocaine Gel #6 Right 5th Toe -Combined with other wound -Current Size (cm) - Length 0.2 -Current Size (cm) - Width 0.1 -Current Size (cm) - Depth 0.1 -Total Square Cm 0.02 -Photo Taken -Tunneling -Undermining/Tunneling -Circular Undermining -Change in Wound Grade/Stage -Exudate Amt None Present -Exudate Type -Wound Margin Distinct, Outline Attached -Granulation Amt None Present (0 %) -Granulation Quality -Slough/Fibrin -Necrosis Amt None Present (0 %) -Necrotic Tissue Type -Structure Exposed -Texture (Angie-wound Skin Appearance) Assessed, Scarring -Moisture (Angie-wound Skin Appearance) Assessed,Dry/ Scaly -Color (Angie-wound Skin Appearance) No Abnormality, Assessed -Temperature (Angie-wound Skin No Abnormality Appearance) (Pt Warm) -Tenderness on Palpation (Angie-wound No Skin Appearance) -Ulcer Cleansing Rinsed/ Irrigated with Saline -Foul Odor after Cleansing No -Anesthetic Used 5% Lidocaine Gel WC - Nurse 2 - General Ulcer CM Notes Start: 05/19/22 09:17 Freq: Status: Active Protocol: Activity Type Activity Date Activity User E-sign Co-sign Detail Recorded Client Recorded Date Recorded By Document 05/19/22 09:32 MW [id number] 05/19/22 09:48 MW Document 05/26/22 09:33 MW [id number] 05/26/22 09:44 MW Document 06/02/22 09:41 MW [id number] 06/02/22 09:49 MW Edit Result 06/02/22 09:41 MW (1) [id number] 06/03/22 15:07 PL Document 06/09/22 09:33 MW [id number] 06/09/22 09:46 MW (1) #7 Left plantar - Apply Skin Sub - 1st 25 sq cm - Legs => 1 05/19/22 05/26/22 06/02/22 09:32 09:33 09:41 Wound Center Nurse 2 #8 Left 2nd Toe -Time 09:35 09:34 -Correct Patient Yes Yes -Correct Side, Site, Position Yes Yes -Correct Procedure Yes Yes -Procedure Performed Yes No -Type of Procedure Debridement -Clinical Debridement Subcutaneous -Tissue Removed Subcutaneous -Post Debridement (cm) - Length 0.3 0 -Post Debridement (cm) - Width 0.2 0 -Post Debridement (cm) - Depth 0.1 0 -Total Square (Post) (cm) 0.06 0 -Area of Debridement (cm) - Length 0.3 -Area of Debridement (cm) - Width 0.2 -Total Square (Area) (cm) 0.06 -Tunneling No No -Undermining/Tunneling No No -Circular Undermining No No -Wound/Ulcer Outcome Not Healed Healed- Epithelialized -Ulcer Cleansing Rinsed/ Irrigated with Saline -Foul Odor after Cleansing No -Bioengineered Tissue No -Bleeding Controlled with Pressure -Treatment Response Procedure Tolerated Well -Offloading No -Debridement - Subq, 1st 20sq cm Yes #9 Left 2nd toe -Time -Correct Patient -Correct Side, Site, Position -Correct Procedure -Procedure Performed -Type of Procedure -Clinical Debridement -Tissue Removed -Post Debridement (cm) - Length -Post Debridement (cm) - Width -Post Debridement (cm) - Depth -Total Square (Post) (cm) -Area of Debridement (cm) - Length -Area of Debridement (cm) - Width -Total Square (Area) (cm) -Tunneling -Undermining/Tunneling -Circular Undermining -Wound/Ulcer Outcome -Ulcer Cleansing -Foul Odor after Cleansing -Bioengineered Tissue -Bleeding Controlled with -Treatment Response -Offloading -Debridement - Subq, 1st 20sq cm #7 Left plantar -Time 09:35 09:34 09:41 -Correct Patient Yes Yes Yes -Correct Side, Site, Position Yes Yes Yes -Correct Procedure Yes Yes Yes -Procedure Performed Yes Yes Yes -Type of Procedure Debridement Debridement Debridement -Clinical Debridement Subcutaneous Subcutaneous Subcutaneous -Tissue Removed Subcutaneous Subcutaneous Subcutaneous -Post Debridement (cm) - Length 1.4 1.2 1.3 -Post Debridement (cm) - Width 1.8 1.4 1.5 -Post Debridement (cm) - Depth 0.2 0.1 0.1 -Total Square (Post) (cm) 2.52 1.68 1.95 -Area of Debridement (cm) - Length 1.4 1.2 1.3 -Area of Debridement (cm) - Width 1.8 1.4 1.5 -Total Square (Area) (cm) 2.52 1.68 1.95 -Tunneling No No No -Undermining/Tunneling No No No -Circular Undermining No No No -Wound/Ulcer Outcome Not Healed Not Healed Not Healed -Ulcer Cleansing Rinsed/ Rinsed/ Rinsed/ Irrigated with Irrigated with Irrigated with Saline Saline Saline -Foul Odor after Cleansing No No No -Bioengineered Tissue Yes Yes Yes -Type of Bioengineered Tissue Epifix Epifix 18mm Epifix 18mm Disc Disc -Expiration Date 01/12/27 03/14/27 03/14/27 -Product Lot Number [id number] -Percent Used 100 100 100 -Lot number of Saline Used [id number] -Bleeding Controlled with Pressure Pressure Pressure -Treatment Response Procedure Procedure Procedure Tolerated Well Tolerated Well Tolerated Well -Offloading No No No -Debridement - Subq, 1st 20sq cm No No No -Apply Skin Sub - 1st 25 sq cm - Legs 1 -Apply Skin Sub - 1st 25 sq cm - Feet 1 1 -Epifix (per sq cm) 4 -Epifix 18mm Disc 3 3 #6 Right 5th Toe -Time 09:35 09:35 09:41 -Correct Patient Yes Yes Yes -Correct Side, Site, Position Yes Yes Yes -Correct Procedure Yes Yes Yes -Procedure Performed Yes Yes Yes -Type of Procedure Debridement Debridement Debridement -Clinical Debridement Subcutaneous Subcutaneous Subcutaneous -Tissue Removed Subcutaneous Subcutaneous Subcutaneous -Post Debridement (cm) - Length 0.5 0.3 0.2 -Post Debridement (cm) - Width 0.5 0.3 0.1 -Post Debridement (cm) - Depth 0.2 0.2 0.1 -Total Square (Post) (cm) 0.25 0.09 0.02 -Area of Debridement (cm) - Length 0.5 0.3 0.2 -Area of Debridement (cm) - Width 0.5 0.3 0.1 -Total Square (Area) (cm) 0.25 0.09 0.02 -Tunneling No No No -Undermining/Tunneling No No No -Circular Undermining No No No -Wound/Ulcer Outcome Not Healed Not Healed Not Healed -Ulcer Cleansing Rinsed/ Rinsed/ Rinsed/ Irrigated with Irrigated with Irrigated with Saline Saline Saline -Foul Odor after Cleansing No No No -Bioengineered Tissue No No No -Bleeding Controlled with Pressure Pressure Pressure -Treatment Response Procedure Procedure Procedure Tolerated Well Tolerated Well Tolerated Well -Offloading No No No -Debridement - Subq, 1st 20sq cm No Yes Yes Pain Scale: 0-10 Numeric Is Patient Pain Free? Yes Yes Yes 06/09/22 09:33 Wound Center Nurse 2 #8 Left 2nd Toe -Time -Correct Patient -Correct Side, Site, Position -Correct Procedure -Procedure Performed -Type of Procedure -Clinical Debridement -Tissue Removed -Post Debridement (cm) - Length -Post Debridement (cm) - Width -Post Debridement (cm) - Depth -Total Square (Post) (cm) -Area of Debridement (cm) - Length -Area of Debridement (cm) - Width -Total Square (Area) (cm) -Tunneling -Undermining/Tunneling -Circular Undermining -Wound/Ulcer Outcome -Ulcer Cleansing -Foul Odor after Cleansing -Bioengineered Tissue -Bleeding Controlled with -Treatment Response -Offloading -Debridement - Subq, 1st 20sq cm #9 Left 2nd toe -Time 09:34 -Correct Patient Yes -Correct Side, Site, Position Yes -Correct Procedure Yes -Procedure Performed Yes -Type of Procedure Debridement -Clinical Debridement Subcutaneous -Tissue Removed Subcutaneous -Post Debridement (cm) - Length 1.7 -Post Debridement (cm) - Width 2.0 -Post Debridement (cm) - Depth 0.2 -Total Square (Post) (cm) 3.40 -Area of Debridement (cm) - Length 1.7 -Area of Debridement (cm) - Width 2.0 -Total Square (Area) (cm) 3.40 -Tunneling No -Undermining/Tunneling No -Circular Undermining No -Wound/Ulcer Outcome Not Healed -Ulcer Cleansing Rinsed/ Irrigated with Saline -Foul Odor after Cleansing No -Bioengineered Tissue No -Bleeding Controlled with Pressure -Treatment Response Procedure Tolerated Well -Offloading No -Debridement - Subq, 1st 20sq cm Yes #7 Left plantar -Time 09:34 -Correct Patient Yes -Correct Side, Site, Position Yes -Correct Procedure Yes -Procedure Performed Yes -Type of Procedure Debridement -Clinical Debridement Subcutaneous -Tissue Removed Subcutaneous -Post Debridement (cm) - Length 1.4 -Post Debridement (cm) - Width 1.6 -Post Debridement (cm) - Depth 0.2 -Total Square (Post) (cm) 2.24 -Area of Debridement (cm) - Length 1.4 -Area of Debridement (cm) - Width 1.6 -Total Square (Area) (cm) 2.24 -Tunneling No -Undermining/Tunneling No -Circular Undermining No -Wound/Ulcer Outcome Not Healed -Ulcer Cleansing Rinsed/ Irrigated with Saline -Foul Odor after Cleansing No -Bioengineered Tissue No -Type of Bioengineered Tissue -Expiration Date -Product Lot Number -Percent Used -Lot number of Saline Used -Bleeding Controlled with Pressure -Treatment Response Procedure Tolerated Well -Offloading No -Debridement - Subq, 1st 20sq cm No -Apply Skin Sub - 1st 25 sq cm - Legs -Apply Skin Sub - 1st 25 sq cm - Feet -Epifix (per sq cm) -Epifix 18mm Disc #6 Right 5th Toe -Time 09:35 -Correct Patient Yes -Correct Side, Site, Position Yes -Correct Procedure Yes -Procedure Performed Yes -Type of Procedure Debridement -Clinical Debridement Subcutaneous -Tissue Removed Subcutaneous -Post Debridement (cm) - Length 2.0 -Post Debridement (cm) - Width 1.0 -Post Debridement (cm) - Depth 0.1 -Total Square (Post) (cm) 2.00 -Area of Debridement (cm) - Length 2.0 -Area of Debridement (cm) - Width 1.0 -Total Square (Area) (cm) 2.00 -Tunneling No -Undermining/Tunneling No -Circular Undermining No -Wound/Ulcer Outcome Not Healed -Ulcer Cleansing Rinsed/ Irrigated with Saline -Foul Odor after Cleansing No -Bioengineered Tissue No -Bleeding Controlled with Pressure -Treatment Response Procedure Tolerated Well -Offloading No -Debridement - Subq, 1st 20sq cm No Pain Scale: 0-10 Numeric Is Patient Pain Free? Yes WC - Nurse 3 - General Ulcer D/C NN Start: 05/19/22 09:17 Freq: Status: Active Protocol: Activity Type Activity Date Activity User E-sign Co-sign Detail Recorded Client Recorded Date Recorded By Document 05/19/22 10:07 ML [id number] 05/19/22 10:09 ML Document 05/26/22 10:55 KR [id number] 05/26/22 10:56 KR Document 06/02/22 09:56 KR [id number] 06/02/22 09:56 KR 05/19/22 05/26/22 06/02/22 10:07 10:55 09:56 Wound Care Nurse 3 #8 Left 2nd Toe -Primary Dressing Applied Aquacel Extra -Primary Dressing Covered/Secured with Dry Gauze & Roll Gauze, Secured with Tape -Aquacel Extra 1 #7 Left plantar -Ulcer Cleansing Rinsed/ Irrigated with Saline -Primary Dressing Applied Aquacel Extra Aquacel Extra -Other Dressing abd pad -Primary Dressing Covered/Secured with Dry Gauze & Dry Gauze, Secured with Roll Gauze, Secured with Tape Secured with Tape Tape -Aquacel Extra 0 1 #6 Right 5th Toe -Ulcer Cleansing Rinsed/ Irrigated with Saline -Primary Dressing Applied Aquacel Extra Aquacel AG 4x4 -Primary Dressing Covered/Secured with Dry Gauze & Dry Gauze, Dry Gauze,Dry Roll Gauze, Secured with Gauze & Roll Secured with Tape Gauze,Secured Tape with Tape -Aquacel Extra 0 -Aquacel AG 4x4 1 Right -Tubular Bandage Single Layer -Size of Tubigrip Used Size F -Size F ($) 1 Left -Tubular Bandage Single Layer -Size of Tubigrip Used Size F -Size F ($) 1 Vital Signs Temperature Source Oral Pain Scale: 0-10 Numeric Is Patient Pain Free? Yes Yes Yes WC - Visit Discharge Discharge Condition Stable Stable Ambulatory Status Ambulatory Ambulatory Transportation Private Auto Private Auto Additional Wound Wound debrided: Left second toe plantar side blister Laterality: Left Wound Grade/Stage: Stage II Type of Debridement: Excisional debridement Anesthesia Used: 5% Lidocaine Gel Depth: in the subcutaneous layer Percentage of wound debrided: 100 Instrument Used: 5mm curette and - (Nippers) Tissue Removed: Devitalized tissue and fibrin Severity: Fat Layer Exposed Amount of bleeding with debridement: Mild Bleeding Controlled with: Compression and gauze Patient tolerated procedure: Patient tolerated procedure well Additional Wound Wound debrided: Right little toe Laterality: Right Wound Grade/Stage: Stage II Type of Debridement: Excisional debridement Anesthesia Used: 5% Lidocaine Gel Depth: in the subcutaneous layer Percentage of wound debrided: 100 Instrument Used: 5mm curette and - (Nippers) Tissue Removed: Devitalized tissue fibrin Severity: Fat Layer Exposed Amount of bleeding with debridement: Mild Bleeding Controlled with: Compression and gauze Patient tolerated procedure: Patient did not tolerate procedure well Assessment/Plan Assessment/Plan (1) 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 (2) Decubitus ulcer limited to breakdown of skin (stage 2): CODE(S): L89.92 - Pressure ulcer of unspecified site, stage 2 QUALIFIERS: Pressure injury location: toe Laterality: left Qualified Code(s): L89.892 - Pressure ulcer of other site, stage 2 PLAN: Wash bilateral feet with antibacterial soap apply Aquacel extra to left plantar left second toe plantar right little toe plantar. Moistened and cover with gauze and tape every day every day. Follow-up in 1 week We will call with the results of x-ray and cultures
== END 2022-06-13 23:59 | disposition home or self-care (01) ==
LOC: WC 09:00
PROVIDERS: PCP Family Medicine; Visit Provider Nurse Practitioner
DX: L89.892 Pressure ulcer of other site, stage 2 (principal); E08.621 Diabetes mellitus due to underlying condition with foot ulcer; L97.522 Non-pressure chronic ulcer of other part of left foot with fat layer exposed; L97.526 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 involvement without evidence of necrosis
CPT/HCPCS: 11042; 15271; 15275; 73630; 87070; 87075; 87077; 87186; 87205; Q4186

== ENCOUNTER → 2022-06-11 | Outpatient (CLI) | payer MEDICARE, OTHER, SELFPAY ==
--- NOTE | 2022-06-11 14:04 | CT_ITS ---
STUDY: CT MAXILLOFACIAL SINUSES REASON FOR EXAM: Male, 76 years old. SINUSITIS RADIATION DOSAGE (If Supplied By Facility): CTDIvol = ( 33.06 ) mGy, DLP = ( 871.04 ) mGycm TECHNIQUE: The patient was scanned in a multi detector CT scanner. High resolution axial imaging was performed without the administration of intravenous contrast material. Sagittal and coronal images were reconstructed. Individualized dose optimization techniques were used for this CT. COMPARISON: Comparison is made with prior study dated 05/02/2018. FINDINGS: FRONTAL SINUSES: Normal aeration, without mucosal inflammatory disease. ETHMOIDAL SINUSES: Partial opacification of the ethmoid sinuses bilaterally. MAXILLARY SINUSES: There is opacification of the left maxillary sinus. Mucosal nodular thickening at the base of the right maxillary sinus. There has been essentially no change. SPHENOIDAL SINUSES: Normal aeration, without mucosal inflammatory disease. There is compromise of the bilateral maxillary infundibula due to mucosal hypertrophy. Hypertrophy of the right middle turbinate. Normal bilateral inferior turbinates. Normal midline nasal septum. There is patency of the bilateral nasal airways. The visualized osseous structures are normal. The visualized bilateral orbital contents are normal. CT/Sinus/Facial Bone IMPRESSION: Bilateral maxillary and ethmoid sinusitis. Hypertrophy of the right middle turbinate. Electronically Signed: Shorty Elizabeth MD at 14:38 EDT ,
== END | disposition home or self-care (01) ==
LOC: CT 13:55
PROVIDERS: PCP Family Medicine; Referring Provider Otolaryngology; Visit Provider Otolaryngology
DX: J32.9 Chronic sinusitis, unspecified (principal)
CPT/HCPCS: 70486

== ENCOUNTER 2022-06-21 13:44 | Outpatient (RCR) | payer MEDICARE, OTHER, SELFPAY ==
[2022-06-21 14:58] LABS: Erythrocyte Sedimentation Rate 8 mm/hr (0-20)
[2022-06-21 14:59] LABS: Absolute Lymphocyte Count 1.75 X10^3/uL (0.83-4.51); Absolute Neutrophil Count 2.9 X10^3/uL (2.0-7.7); Basophil# 0.02 X10^3/uL; Basophil% 0.4 % (0-1); Eosinophil# 0.47 X10^3/uL; Eosinophils% 8.3 % (0-5); Hematocrit 38.1 % (40-54); Hemoglobin 12.9 g/dL (13.0-16.5); Lymphocyte # 1.75 X10^3/ul (0.83-4.51); Lymphocyte % 30.9 % (19-41); Mean Corp Hgb Conc 33.9 g/dL (32-36); Mean Corpuscular Hgb 32.6 pg (27.0-32.0); Mean Corpuscular Volume 96.2 fL (80-94); Monocyte# 0.51 X10^3/uL; NRBC Flagged by Analyzer 0 % (0-5); Neutrophil % 51.2 % (47-70); Platelet Count 220 K/mm3 (150-450); RBC Distribution Width SD 48.8 fl (35.1-43.9); Red Blood Count 3.96 M/mm3 (4.6-6.2); White Blood Count 5.7 K/mm3 (4.4-11.0)
[2022-06-21 15:31] LABS: AST(SGOT) 27 U/L (15-37); Alanine Aminotransfer ALT/SGPT 56 U/L (16-61); CRP < 2.90 mg/L (0.0-3.0); Creatinine, Serum 1.43 mg/dL (0.70-1.30); EST Glomerular Filtration Rate 51 mL/min (>60); Est Glom Filt Rate - Afr Amer 61 mL/min (>60); Uric Acid 6.3 mg/dL (3.5-7.2)
== END 2022-06-21 18:00 | disposition home or self-care (01) ==
LOC: LAB 13:44
PROVIDERS: PCP Family Medicine; Referring Provider Internal Medicine Rheumatology; Visit Provider Internal Medicine Rheumatology
DX: L40.50 Arthropathic psoriasis, unspecified (principal); L40.52 Psoriatic arthritis mutilans; L40.3 Pustulosis palmaris et plantaris; L85.3 Xerosis cutis; L57.8 Other skin changes due to chronic exposure to nonionizing radiation; R79.82 Elevated C-reactive protein (CRP); M50.90 Cervical disc disorder, unspecified, unspecified cervical region; M17.0 Bilateral primary osteoarthritis of knee; L21.9 Seborrheic dermatitis, unspecified; L30.9 Dermatitis, unspecified; Z85.828 Personal history of other malignant neoplasm of skin; Z87.39 Personal history of other diseases of the musculoskeletal system and connective tissue; Z79.2 Long term (current) use of antibiotics; Z79.899 Other long term (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
CPT/HCPCS: 36415; 82565; 84450; 84460; 84550; 85025; 85652; 86140

== ENCOUNTER 2022-07-14 10:45 | Outpatient (RCR) | payer MEDICARE, OTHER, SELFPAY ==
[2022-06-14 00:34] VITALS: BP 142/61; PULSE 78; RESP 17; TEMP 36.2
[2022-06-16 09:06] VITALS: BP 139/86; PULSE 68; RESP 16; TEMP 35.7
--- NOTE | 2022-06-16 10:31 | PN.PCM_ITS ---
History of Present Illness Date of Service: 06/16/22 Chief Complaint: Follow-up on right fifth toe plantar side left plantar great toe and left plantar second toe. History of Wound: 76-year-old white male with previous history of amputations of the toes. Appears with increase in wounds to the toes for the last 6 weeks at least. He has been seen by his own care companion Dr. Nguyen and he referred him to here. He is currently using Aquacel to his wounds. His usually helps with dressing changes without a problem. Progress of Wound: Right fifth toe is healed, left second toe is just a slit very small. The left plantar foot wound is smaller shallower. Looks very good no sign of infection. Patient is taking his linezolid well for his staph infection. Subjective Subjective Patient states he did get new boots and shoes from Dr. Nguyen. Objective Data Objective Data All wounds look well healing nicely no sign of infection noted X-rays came back negative on his feet for any lesions or osteomyelitis Cultures came back positive for staph aureus Vital Signs: Vital Signs Temp Pulse Resp BP O2 Del Method 96.2 F L 68 16 139/86 H Room Air 06/16/22 09:06 06/16/22 09:06 06/16/22 09:06 06/16/22 09:06 06/16/22 09:06 Oxygen Delivery Method Room Air Lab / Micro Data Attestation: I reviewed the patient's lab results. Physical Exam Const oriented x3 General Appearance: cooperative Exam Limitations: no limitations Resp normal respiratory effort Effort and Inspection: able to speak in complete sentences Auscultation: clear to auscultation bilaterally Cardio regular rate and regular rhythm Palpation: normal PMI Rate: regular rate Rhythm: regular rhythm GI Auscultation: normoactive bowel sounds Palpation: soft and no hepatosplenomegaly Extremity normal to inspection General Extremity: normal exam except as noted Skin no rashes or lesions noted Wound Narrative: Open wounds with callus around on the right fifth toe plantar left second toe plantar and left great toe plantar with all with open wounds also. Neuro oriented x3 Psych Appearance: grossly normal Speech: normal speech Thought Content: normal thought content Judgement: judgement good Debridement Note Debridement Note Wound debrided: Left plantar foot ulcer Laterality: Left Type of Debridement: Excisional debridement Anesthesia Used: 5% Lidocaine Gel Depth: Down to and including healthy tissue Percentage of wound debrided: 100 Instrument Used: 5mm curette Tissue Removed: Fibrin callus Severity: Fat Layer Exposed Amount of bleeding with debridement: Mild Bleeding Controlled with: Compression and gauze Patient tolerated procedure: Patient tolerated procedure well Post-Debridement Measurements and Additional Note: Post-Debridement Measurements/Treatment - Nurse 1 - General Ulcer Assessment Start: 06/16/22 09:06 Freq: Status: Active Protocol: REMA Activity Type Activity Date Activity User E-sign Co-sign Detail Recorded Client Recorded Date Recorded By Document 06/16/22 09:06 [facility] [id number] 06/16/22 09:17 [facility] 06/16/22 09:06 WC - Today's Visit Information Type of service 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 ) Arrival Mode Ambulatory Transfer Assistance None Patient Identification Verified (Name & Yes ) Patient Requires Transmission-Based No Precautions Vital Signs Temperature (97.8 F-99.1 F) 96.2 F L Temperature Source Temporal Pulse Rate (60-100) 68 Pulse Location Monitor Respiratory Rate (12-18) 16 Respiratory rate source Observation Oxygen Delivery Method Room Air Blood Pressure (90/60-120/80) 139/86 H Blood Pressure Mean (mm Hg) 103 Source Monitor Position Sitting Blood Pressure Location Left Arm History Since Last Visit- (Skip if this is Patient's initial visit) Have you changed medications since your No last visit? Any new allergies or adverse reactions No Had a fall/change in ADL's that may No increase risk of falls Signs or symptoms of abuse and/or No neglect since last visit Have you been in the hospital since your No last visit? Has dressing in place as prescribed Yes Has compression in place as prescribed N/A Has offloadiing in place as prescribed Yes Experienced any changes in pain level or No management Left Footwear Removable Cast Walker/Walking Boot Right Footwear Diabetic Shoe Pain Scale: 0-10 Numeric Is Patient Pain Free? Yes [facility] Nurse 1 - General Ulcer Measurement Start: 06/16/22 09:06 Freq: Status: Active Protocol: Activity Type Activity Date Activity User E-sign Co-sign Detail Recorded Client Recorded Date Recorded By Document 06/16/22 09:06 [facility] [id number] 06/16/22 09:17 [facility] 06/16/22 09:06 Wound Center Nurse 1 #6 Right 5th Toe -Combined with other wound No -Current Size (cm) - Length 0.1 -Current Size (cm) - Width 0.1 -Current Size (cm) - Depth 0.1 -Total Square Cm 0.01 -Date of Last Picture (Recall this 06/16/22 field) -Photo Taken Yes -Epithelialization Large 67-100% -Exudate Amt None Present -Slough/Fibrin Yes -Necrosis Amt Small (1-33%) -Necrotic Tissue Type Eschar -Texture (Angie-wound Skin Appearance) Assessed, Scarring -Moisture (Angie-wound Skin Appearance) Assessed -Color (Angie-wound Skin Appearance) Assessed -Temperature (Angie-wound Skin No Abnormality Appearance) (Pt Warm) -Tenderness on Palpation (Angie-wound No Skin Appearance) -Ulcer Cleansing Rinsed/ Irrigated with Saline -Foul Odor after Cleansing No -Anesthetic Used 5% Lidocaine Gel #9 Left 2nd toe -Combined with other wound No -Current Size (cm) - Length 0.2 -Current Size (cm) - Width 0.1 -Current Size (cm) - Depth 0.1 -Total Square Cm 0.02 -Date of Last Picture (Recall this 06/16/22 field) -Photo Taken No -Epithelialization None Present -Tunneling No -Undermining/Tunneling No -Circular Undermining No -Exudate Amt Small -Exudate Type Serosanguineous -Wound Margin Distinct, Outline Attached -Granulation Amt Large (67-100%) -Granulation Quality Red -Slough/Fibrin Yes -Necrosis Amt Large (67-100%) -Necrotic Tissue Type Adherent Slough -Texture (Angie-wound Skin Appearance) Assessed, Scarring -Moisture (Angie-wound Skin Appearance) Assessed,Dry/ Scaly -Color (Angie-wound Skin Appearance) Assessed -Temperature (Angie-wound Skin No Abnormality Appearance) (Pt Warm) -Tenderness on Palpation (Angie-wound No Skin Appearance) -Ulcer Cleansing Rinsed/ Irrigated with Saline -Foul Odor after Cleansing No -Anesthetic Used 5% Lidocaine Gel #7 Left plantar -Combined with other wound No -Current Size (cm) - Length 0.8 -Current Size (cm) - Width 1.4 -Current Size (cm) - Depth 0.2 -Total Square Cm 1.12 -Date of Last Picture (Recall this 06/16/22 field) -Photo Taken Yes -Epithelialization None Present -Tunneling No -Undermining/Tunneling No -Circular Undermining No -Exudate Amt Medium -Exudate Type Serosanguineous -Wound Margin Thickened -Granulation Amt Large (67-100%) -Granulation Quality Red -Slough/Fibrin Yes -Necrosis Amt Small (1-33%) -Necrotic Tissue Type Adherent Slough -Texture (Angie-wound Skin Appearance) Assessed,Callus ,Scarring -Moisture (Angie-wound Skin Appearance) Assessed,Dry/ Scaly -Color (Angie-wound Skin Appearance) Assessed -Temperature (Angie-wound Skin No Abnormality Appearance) (Pt Warm) -Tenderness on Palpation (Angie-wound No Skin Appearance) -Ulcer Cleansing Rinsed/ Irrigated with Saline -Foul Odor after Cleansing No -Anesthetic Used 5% Lidocaine Gel WC - Nurse 2 - General Ulcer CM Notes Start: 06/16/22 09:06 Freq: Status: Active Protocol: Activity Type Activity Date Activity User E-sign Co-sign Detail Recorded Client Recorded Date Recorded By Document 06/16/22 09:52 PL [id number] 06/16/22 09:56 PL 06/16/22 09:52 Wound Center Nurse 2 #6 Right 5th Toe -Procedure Performed No -Wound/Ulcer Outcome Healed- Epithelialized #9 Left 2nd toe -Time 09:22 -Correct Patient Yes -Correct Side, Site, Position Yes -Correct Procedure Yes -Procedure Performed Yes -Type of Procedure Debridement -Clinical Debridement Subcutaneous -Tissue Removed Subcutaneous -Post Debridement (cm) - Length 0.6 -Post Debridement (cm) - Width 0.1 -Post Debridement (cm) - Depth 0.1 -Total Square (Post) (cm) 0.06 -Area of Debridement (cm) - Length 0.6 -Area of Debridement (cm) - Width 1 -Total Square (Area) (cm) 0.6 -Tunneling No -Undermining/Tunneling No -Circular Undermining No -Wound/Ulcer Outcome Not Healed -Ulcer Cleansing Rinsed/ Irrigated with Saline -Foul Odor after Cleansing No -Bioengineered Tissue No -Bleeding Controlled with Pressure -Treatment Response Procedure Tolerated Well -Debridement - Subq, 1st 20sq cm No #7 Left plantar -Time 09:22 -Correct Patient Yes -Correct Side, Site, Position Yes -Correct Procedure Yes -Procedure Performed Yes -Type of Procedure Debridement -Clinical Debridement Subcutaneous -Tissue Removed Subcutaneous -Post Debridement (cm) - Length 1.2 -Post Debridement (cm) - Width 1.7 -Post Debridement (cm) - Depth 0.2 -Total Square (Post) (cm) 2.04 -Area of Debridement (cm) - Length 1.2 -Area of Debridement (cm) - Width 1.7 -Total Square (Area) (cm) 2.04 -Tunneling No -Undermining/Tunneling No -Circular Undermining No -Wound/Ulcer Outcome Not Healed -Ulcer Cleansing Rinsed/ Irrigated with Saline -Foul Odor after Cleansing No -Bioengineered Tissue Yes -Type of Bioengineered Tissue Epifix 18mm Disc -Expiration Date 03/14/27 -Product Lot Number [id number] -Percent Used 100 -Bleeding Controlled with Pressure -Treatment Response Procedure Tolerated Well -Debridement - Subq, 1st 20sq cm No -Apply Skin Sub - 1st 25 sq cm - Feet 1 -Epifix 18mm Disc 3 Pain Scale: 0-10 Numeric Is Patient Pain Free? Yes - Nurse 3 - General Ulcer D/C NN Start: 06/16/22 09:06 Freq: Status: Active Protocol: Activity Type Activity Date Activity User E-sign Co-sign Detail Recorded Client Recorded Date Recorded By Document 06/16/22 10:17 [facility] [id number] 06/16/22 10:18 NEEMA 06/16/22 10:17 Wound Care Nurse 3 #9 Left 2nd toe -Primary Dressing Applied Aquacel Extra -Primary Dressing Covered/Secured with Dry Gauze,Dry Gauze & Roll Gauze,Secured with Tape -Aquacel Extra 1 #7 Left plantar -Primary Dressing Covered/Secured with Dry Gauze, Secured with Tape Pain Scale: 0-10 Numeric Is Patient Pain Free? Yes WC - Visit Discharge Discharge Condition Stable Ambulatory Status Ambulatory Transportation Private Auto Additional Wound Wound debrided: Left second toe plantar side Laterality: Left Type of Debridement: Excisional debridement Anesthesia Used: 5% Lidocaine Gel Depth: in the subcutaneous layer Percentage of wound debrided: 100 Instrument Used: 5mm curette Tissue Removed: Fibrin devitalized tissue Severity: Limited To Skin Breakdown Amount of bleeding with debridement: Mild Bleeding Controlled with: Compression and gauze Patient tolerated procedure: Patient tolerated procedure well Assessment/Plan Assessment/Plan (1) 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 (2) Decubitus ulcer limited to breakdown of skin (stage 2): CODE(S): L89.92 - Pressure ulcer of unspecified site, stage 2 QUALIFIERS: Pressure injury location: toe Laterality: left Qualified Code(s): L89.892 - Pressure ulcer of other site, stage 2 PLAN: Epi fix #7 applied to plantar left foot and toe. Covered with veil Steri- Strips and Aquacel extra over top with regular dressing on top of that Leave dressing on for the week do not change dressing Follow-up sooner if having issues
[2022-06-23 10:21] VITALS: BP 142/74; PULSE 76; TEMP 36
--- NOTE | 2022-06-23 10:58 | PCM.WC.PN ---
History of Present Illness Date of Service: 06/23/22 Chief Complaint: Follow-up on right fifth toe plantar side left plantar great toe and left plantar second toe. History of Wound: 76-year-old white male with previous history of amputations of the toes. Appears with increase in wounds to the toes for the last 6 weeks at least. 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 Nguyen and he referred him to here. He is currently using Aquacel to his wounds. His usually helps with dressing changes without a problem. Progress of Wound: Right fifth toe is healed, left second toe is healed. The left plantar foot wound is smaller shallower. Looks very good no sign of infection. We will continue with epi fix #8 Subjective Subjective Patient is pleased with outcomes Objective Data Objective Data Sign of infection plantar wound is healing looks smaller tolerating the epi fix well Vital Signs: Vital Signs Temp Pulse Resp BP O2 Del Method 96.8 F L 76 16 142/74 H Room Air 06/23/22 10:21 06/23/22 10:21 06/16/22 09:06 06/23/22 10:21 06/16/22 09:06 Oxygen Delivery Method Room Air Lab / Micro Data Attestation: I reviewed the patient's lab results. Physical Exam Const oriented x3 General Appearance: cooperative Exam Limitations: no limitations Resp normal respiratory effort Effort and Inspection: able to speak in complete sentences Auscultation: clear to auscultation bilaterally Cardio regular rate and regular rhythm Palpation: normal PMI Rate: regular rate Rhythm: regular rhythm GI Auscultation: normoactive bowel sounds Palpation: soft and no hepatosplenomegaly Extremity normal to inspection General Extremity: normal exam except as noted Skin no rashes or lesions noted Wound Narrative: Open wounds with callus around on the right fifth toe plantar left second toe plantar and left great toe plantar with all with open wounds also. Neuro oriented x3 Psych Appearance: grossly normal Speech: normal speech Thought Content: normal thought content Judgement: judgement good Debridement Note Debridement Note Wound debrided: Left plantar ulcer Laterality: Left Type of Debridement: Excisional debridement Anesthesia Used: 5% Lidocaine Gel Depth: in the subcutaneous layer Percentage of wound debrided: 100 Instrument Used: 5mm curette Tissue Removed: Fibrin Severity: Limited To Skin Breakdown Amount of bleeding with debridement: Mild Bleeding Controlled with: Compression and gauze Patient tolerated procedure: Patient tolerated procedure well Post-Debridement Measurements and Additional Note: Post-Debridement Measurements/Treatment WC - Nurse 1 - General Ulcer Assessment Start: 06/16/22 09:06 Freq: Status: Active Protocol: REMA Activity Type Activity Date Activity User E-sign Co-sign Detail Recorded Client Recorded Date Recorded By Document 06/16/22 09:06 BMF [id number] 06/16/22 09:17 BMF Document 06/23/22 10:21 KR [id number] 06/23/22 10:26 KR 06/16/22 06/23/22 09:06 10:21 WC - Today's Visit Information Type of service Follow-up Visit Follow-up Visit (Physician/TABLE AND DESK FINISHER (Physician/TABLE AND DESK FINISHER ) ) Arrival Mode Ambulatory Ambulatory Transfer Assistance None Patient Identification Verified (Name & Yes Yes ) Patient Requires Transmission-Based No Precautions Vital Signs Temperature (97.8 F-99.1 F) 96.2 F L 96.8 F L Temperature Source Temporal Temporal Pulse Rate (60-100) 68 76 Pulse Location Monitor Monitor Respiratory Rate (12-18) 16 Respiratory rate source Observation Oxygen Delivery Method Room Air Blood Pressure (90/60-120/80) 139/86 H 142/74 H Blood Pressure Mean (mm Hg) 103 96 Source Monitor Monitor Position Sitting Sitting Blood Pressure Location Left Arm Left Arm History Since Last Visit- (Skip if this is Patient's initial visit) Have you changed medications since your No No last visit? Any new allergies or adverse reactions No No Had a fall/change in ADL's that may No No increase risk of falls Signs or symptoms of abuse and/or No No neglect since last visit Have you been in the hospital since your No No last visit? Has dressing in place as prescribed Yes Yes Has compression in place as prescribed N/A N/A Has offloadiing in place as prescribed Yes Yes Experienced any changes in pain level or No No management Left Footwear Removable Cast Regular Shoe Walker/Walking Boot Right Footwear Diabetic Shoe Removable Cast Walker/Walking Boot Pain Scale: 0-10 Numeric Is Patient Pain Free? Yes Yes JONNY Fabian Nurse 1 - General Ulcer Measurement Start: 06/16/22 09:06 Freq: Status: Active Protocol: Activity Type Activity Date Activity User E-sign Co-sign Detail Recorded Client Recorded Date Recorded By Document 06/16/22 09:06 [facility] [id number] 06/16/22 09:17 [facility] Document 06/23/22 10:21 KR [id number] 06/23/22 10:26 KR 06/16/22 06/23/22 09:06 10:21 Wound Center Nurse 1 #9 Left 2nd toe -Combined with other wound No -Current Size (cm) - Length 0.2 0.3 -Current Size (cm) - Width 0.1 0.1 -Current Size (cm) - Depth 0.1 0.1 -Total Square Cm 0.02 0.03 -Date of Last Picture (Recall this 06/16/22 field) -Photo Taken No -Epithelialization None Present -Tunneling No -Undermining/Tunneling No -Circular Undermining No -Exudate Amt Small None Present -Exudate Type Serosanguineous -Wound Margin Distinct, Distinct, Outline Outline Attached Attached -Granulation Amt Large (67-100%) Small (1-33%) -Granulation Quality Red [place] -Slough/Fibrin Yes -Necrosis Amt Large (67-100%) None Present (0 %) -Necrotic Tissue Type Adherent Slough -Texture (Angie-wound Skin Appearance) Assessed, Assessed, Scarring Scarring -Moisture (Angie-wound Skin Appearance) Assessed,Dry/ No Abnormality, Scaly Assessed -Color (Angie-wound Skin Appearance) Assessed No Abnormality, Assessed -Temperature (Angie-wound Skin No Abnormality No Abnormality Appearance) (Pt Warm) (Pt Warm) -Tenderness on Palpation (Angie-wound No No Skin Appearance) -Ulcer Cleansing Rinsed/ Rinsed/ Irrigated with Irrigated with Saline Saline -Foul Odor after Cleansing No No -Anesthetic Used 5% Lidocaine 5% Lidocaine Gel Gel #6 Right 5th Toe -Combined with other wound No -Current Size (cm) - Length 0.1 -Current Size (cm) - Width 0.1 -Current Size (cm) - Depth 0.1 -Total Square Cm 0.01 -Date of Last Picture (Recall this 06/16/22 field) -Photo Taken Yes -Epithelialization Large 67-100% -Exudate Amt None Present -Slough/Fibrin Yes -Necrosis Amt Small (1-33%) -Necrotic Tissue Type Eschar -Texture (Angie-wound Skin Appearance) Assessed, Scarring -Moisture (Angie-wound Skin Appearance) Assessed -Color (Angie-wound Skin Appearance) Assessed -Temperature (Angie-wound Skin No Abnormality Appearance) (Pt Warm) -Tenderness on Palpation (Angie-wound No Skin Appearance) -Ulcer Cleansing Rinsed/ Irrigated with Saline -Foul Odor after Cleansing No -Anesthetic Used 5% Lidocaine Gel #10 L PLANTAR -Combined with other wound No -Current Size (cm) - Length 0.8 0.9 -Current Size (cm) - Width 1.4 1.4 -Current Size (cm) - Depth 0.2 0.1 -Total Square Cm 1.12 1.26 -Date of Last Picture (Recall this 06/16/22 field) -Photo Taken Yes -Epithelialization None Present -Tunneling No -Undermining/Tunneling No -Circular Undermining No -Exudate Amt Medium Small -Exudate Type Serosanguineous Serosanguineous -Wound Margin Thickened Distinct, Outline Attached -Granulation Amt Large (67-100%) Large (67-100%) -Granulation Quality Red Red -Slough/Fibrin Yes -Necrosis Amt Small (1-33%) None Present (0 %) -Necrotic Tissue Type Adherent Slough -Texture (Angie-wound Skin Appearance) Assessed,Callus Assessed, ,Scarring Scarring -Moisture (Angie-wound Skin Appearance) Assessed,Dry/ No Abnormality, Scaly Assessed -Color (Angie-wound Skin Appearance) Assessed No Abnormality, Assessed -Temperature (Angie-wound Skin No Abnormality No Abnormality Appearance) (Pt Warm) (Pt Warm) -Tenderness on Palpation (Angie-wound No No Skin Appearance) -Ulcer Cleansing Rinsed/ Rinsed/ Irrigated with Irrigated with Saline Saline -Foul Odor after Cleansing No No -Anesthetic Used 5% Lidocaine 5% Lidocaine Gel Gel WC - Nurse 2 - General Ulcer CM Notes Start: 06/16/22 09:06 Freq: Status: Active Protocol: Activity Type Activity Date Activity User E-sign Co-sign Detail Recorded Client Recorded Date Recorded By Document 06/16/22 09:52 PL [id number] 06/16/22 09:56 PL Edit Result 06/16/22 09:52 PL (1) [id number] 06/17/22 16:18 PL Document 06/23/22 10:42 MW [id number] 06/23/22 10:52 MW (1) #9 Left 2nd toe - Debridement - Subq, 1st 20sq cm No => Yes 06/16/22 06/23/22 09:52 10:42 Wound Center Nurse 2 #9 Left 2nd toe -Time 09: 10:44 -Correct Patient Yes Yes -Correct Side, Site, Position Yes Yes -Correct Procedure Yes Yes -Procedure Performed Yes No -Type of Procedure Debridement -Clinical Debridement Subcutaneous -Tissue Removed Subcutaneous -Post Debridement (cm) - Length 0.6 0 -Post Debridement (cm) - Width 0.1 0 -Post Debridement (cm) - Depth 0.1 0 -Total Square (Post) (cm) 0.06 0 -Area of Debridement (cm) - Length 0.6 -Area of Debridement (cm) - Width 1 -Total Square (Area) (cm) 0.6 -Tunneling No No -Undermining/Tunneling No No -Circular Undermining No No -Wound/Ulcer Outcome Not Healed Healed- Epithelialized -Ulcer Cleansing Rinsed/ Irrigated with Saline -Foul Odor after Cleansing No No -Bioengineered Tissue No No -Bleeding Controlled with Pressure -Treatment Response Procedure Tolerated Well -Debridement - Subq, 1st 20sq cm Yes #6 Right 5th Toe -Procedure Performed No -Wound/Ulcer Outcome Healed- Epithelialized #10 L PLANTAR -Time : 10:46 -Correct Patient Yes Yes -Correct Side, Site, Position Yes Yes -Correct Procedure Yes Yes -Procedure Performed Yes Yes -Type of Procedure Debridement Debridement -Clinical Debridement Subcutaneous Subcutaneous -Tissue Removed Subcutaneous Subcutaneous -Post Debridement (cm) - Length 1.2 1.1 -Post Debridement (cm) - Width 1.7 1.4 -Post Debridement (cm) - Depth 0.2 0.1 -Total Square (Post) (cm) 2.04 1.54 -Area of Debridement (cm) - Length 1.2 1.1 -Area of Debridement (cm) - Width 1.7 1.4 -Total Square (Area) (cm) 2.04 1.54 -Tunneling No No -Undermining/Tunneling No No -Circular Undermining No No -Wound/Ulcer Outcome Not Healed Not Healed -Ulcer Cleansing Rinsed/ Rinsed/ Irrigated with Irrigated with Saline Saline -Foul Odor after Cleansing No No -Bioengineered Tissue Yes Yes -Type of Bioengineered Tissue Epifix 18mm Epifix 18mm Disc Disc -Expiration Date 03/14/27 03/14/27 -Product Lot Number [id number] -Percent Used 100 100 -Lot number of Saline Used [id number] -Bleeding Controlled with Pressure Pressure -Treatment Response Procedure Procedure Tolerated Well Tolerated Well -Offloading No -Debridement - Subq, 1st 20sq cm No No -Apply Skin Sub - 1st 25 sq cm - Feet 1 1 -Epifix 18mm Disc 3 3 Pain Scale: 0-10 Numeric Is Patient Pain Free? Yes Yes - Nurse 3 - General Ulcer D/C NN Start: 06/16/22 09:06 Freq: Status: Active Protocol: Activity Type Activity Date Activity User E-sign Co-sign Detail Recorded Client Recorded Date Recorded By Document 06/16/22 10:17 NEEMA [id number] 06/16/22 10:18 NEEMA 06/16/22 10:17 Wound Care Nurse 3 #9 Left 2nd toe -Primary Dressing Applied Aquacel Extra -Primary Dressing Covered/Secured with Dry Gauze,Dry Gauze & Roll Gauze,Secured with Tape -Aquacel Extra 1 #10 L PLANTAR -Primary Dressing Covered/Secured with Dry Gauze, Secured with Tape Pain Scale: 0-10 Numeric Is Patient Pain Free? 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 (2) Decubitus ulcer limited to breakdown of skin (stage 2): CODE(S): L89.92 - Pressure ulcer of unspecified site, stage 2 QUALIFIERS: Pressure injury location: toe Laterality: left Qualified Code(s): L89.892 - Pressure ulcer of other site, stage 2 PLAN: Epi fix #8 applied to plantar left foot . Covered with veil Steri-Strips and Aquacel extra over top with regular dressing on top of that Leave dressing on for the week do not change dressing Follow-up sooner if having issues
[2022-06-30 10:59] VITALS: BP 150/79; PULSE 68; TEMP 36.4
--- NOTE | 2022-06-30 11:47 | PCM.WC.PN ---
History of Present Illness Date of Service: 06/30/22 Chief Complaint: Follow-up on right fifth toe plantar side left plantar great toe and left plantar second toe. History of Wound: 76-year-old white male with previous history of amputations of the toes. Appears with increase in wounds to the toes for the last 6 weeks at least. 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 Nguyen and he referred him to here. He is currently using Aquacel to his wounds. His usually helps with dressing changes without a problem. Progress of Wound: The woundRight fifth toe is healed, left second toe is healed. The left plantar foot wound is smaller shallower. Looks very good no sign of infection. We will continue with epi fix #9 has developed some pressure area underneath wound we will use a Stasis pad under the wound when we are dressing it. Subjective Subjective Patient is happy with treatments Objective Data Objective Data We will try applying #9 epi fix today Vital Signs: Vital Signs Temp Pulse Resp BP O2 Del Method 97.6 F L 68 16 150/79 H Room Air 06/30/22 10:59 06/30/22 10:59 06/16/22 09:06 06/30/22 10:59 06/16/22 09:06 Oxygen Delivery Method Room Air Physical Exam Const oriented x3 General Appearance: cooperative Exam Limitations: no limitations Resp normal respiratory effort Effort and Inspection: able to speak in complete sentences Auscultation: clear to auscultation bilaterally Cardio regular rate and regular rhythm Palpation: normal PMI Rate: regular rate Rhythm: regular rhythm GI Auscultation: normoactive bowel sounds Palpation: soft and no hepatosplenomegaly Extremity normal to inspection General Extremity: normal exam except as noted Skin no rashes or lesions noted Wound Narrative: Open wounds with callus around on the right fifth toe plantar left second toe plantar and left great toe plantar with all with open wounds also. Neuro oriented x3 Psych Appearance: grossly normal Speech: normal speech Thought Content: normal thought content Judgement: judgement good Debridement Note Debridement Note Wound debrided: Left plantar nonpressure chronic ulcer Laterality: Left Type of Debridement: Excisional debridement Anesthesia Used: 5% Lidocaine Gel Depth: in the subcutaneous layer Percentage of wound debrided: 100 Instrument Used: 5mm curette Tissue Removed: Fibrin and callus Severity: Fat Layer Exposed Amount of bleeding with debridement: None Bleeding Controlled with: Compression and gauze Patient tolerated procedure: Patient tolerated procedure well Post-Debridement Measurements and Additional Note: Post-Debridement Measurements/Treatment WC - Nurse 1 - General Ulcer Assessment Start: 06/16/22 09:06 Freq: Status: Active Protocol: REMA Activity Type Activity Date Activity User E-sign Co-sign Detail Recorded Client Recorded Date Recorded By Document 06/16/22 09:06 BM [id number] 06/16/22 09:17 BMF Document 06/23/22 10:21 KR [id number] 06/23/22 10:26 KR Document 06/30/22 10:59 KR [id number] 06/30/22 11:01 KR 06/16/22 06/23/22 06/30/22 09:06 10:21 10:59 - Today's Visit Information Type of service Follow-up Visit Follow-up Visit Follow-up Visit (Physician/MOBILE DEVICE ENGINEER (Physician/MOBILE DEVICE ENGINEER (Physician/MOBILE DEVICE ENGINEER ) ) ) Arrival Mode Ambulatory Ambulatory Ambulatory Transfer Assistance None Patient Identification Verified (Name & Yes Yes Yes ) Patient Requires Transmission-Based No Precautions Vital Signs Temperature (97.8 F-99.1 F) 96.2 F L 96.8 F L 97.6 F L Temperature Source Temporal Temporal Temporal Pulse Rate (60-100) 68 76 68 Pulse Location Monitor Monitor Monitor Respiratory Rate (12-18) 16 Respiratory rate source Observation Oxygen Delivery Method Room Air Blood Pressure (90/60-120/80) 139/86 H 142/74 H 150/79 H Blood Pressure Mean (mm Hg) 103 96 102 Source Monitor Monitor Monitor Position Sitting Sitting Sitting Blood Pressure Location Left Arm Left Arm Left Arm History Since Last Visit- (Skip if this is Patient's initial visit) Have you changed medications since your No No No last visit? Any new allergies or adverse reactions No No No Had a fall/change in ADL's that may No No No increase risk of falls Signs or symptoms of abuse and/or No No No neglect since last visit Have you been in the hospital since your No No No last visit? Has dressing in place as prescribed Yes Yes Yes Has compression in place as prescribed N/A N/A N/A Has offloadiing in place as prescribed Yes Yes N/A Experienced any changes in pain level or No No No management Left Footwear Removable Cast Regular Shoe Regular Shoe Walker/Walking Boot Right Footwear Diabetic Shoe Removable Cast Regular Shoe Walker/Walking Boot Pain Scale: 0-10 Numeric Is Patient Pain Free? Yes Yes Yes WC - Nurse 1 - General Ulcer Measurement Start: 06/16/22 09:06 Freq: Status: Active Protocol: Activity Type Activity Date Activity User E-sign Co-sign Detail Recorded Client Recorded Date Recorded By Document 06/16/22 09:06 [facility] [id number] 06/16/22 09:17 BM Document 06/23/22 10:21 KR [id number] 06/23/22 10:26 KR Document 06/30/22 10:59 KR [id number] 06/30/22 11:01 KR 06/16/22 06/23/22 06/30/22 09:06 10:21 10:59 Wound Center Nurse 1 #9 Left 2nd toe -Combined with other wound No -Current Size (cm) - Length 0.2 0.3 -Current Size (cm) - Width 0.1 0.1 -Current Size (cm) - Depth 0.1 0.1 -Total Square Cm 0.02 0.03 -Date of Last Picture (Recall this 06/16/22 field) -Photo Taken No -Epithelialization None Present -Tunneling No -Undermining/Tunneling No -Circular Undermining No -Exudate Amt Small None Present -Exudate Type Serosanguineous -Wound Margin Distinct, Distinct, Outline Outline Attached Attached -Granulation Amt Large (67-100%) Small (1-33%) -Granulation Quality Red [place]romm[place] -Slough/Fibrin Yes -Necrosis Amt Large (67-100%) None Present (0 %) -Necrotic Tissue Type Adherent Slough -Texture (Angie-wound Skin Appearance) Assessed, Assessed, Scarring Scarring -Moisture (Angie-wound Skin Appearance) Assessed,Dry/ No Abnormality, Scaly Assessed -Color (Angie-wound Skin Appearance) Assessed No Abnormality, Assessed -Temperature (Angie-wound Skin No Abnormality No Abnormality Appearance) (Pt Warm) (Pt Warm) -Tenderness on Palpation (Angie-wound No No Skin Appearance) -Ulcer Cleansing Rinsed/ Rinsed/ Irrigated with Irrigated with Saline Saline -Foul Odor after Cleansing No No -Anesthetic Used 5% Lidocaine 5% Lidocaine Gel Gel #6 Right 5th Toe -Combined with other wound No -Current Size (cm) - Length 0.1 -Current Size (cm) - Width 0.1 -Current Size (cm) - Depth 0.1 -Total Square Cm 0.01 -Date of Last Picture (Recall this 06/16/22 field) -Photo Taken Yes -Epithelialization Large 67-100% -Exudate Amt None Present -Slough/Fibrin Yes -Necrosis Amt Small (1-33%) -Necrotic Tissue Type Eschar -Texture (Angie-wound Skin Appearance) Assessed, Scarring -Moisture (Angie-wound Skin Appearance) Assessed -Color (Angie-wound Skin Appearance) Assessed -Temperature (Angie-wound Skin No Abnormality Appearance) (Pt Warm) -Tenderness on Palpation (Angie-wound No Skin Appearance) -Ulcer Cleansing Rinsed/ Irrigated with Saline -Foul Odor after Cleansing No -Anesthetic Used 5% Lidocaine Gel #10 L PLANTAR -Combined with other wound No -Current Size (cm) - Length 0.8 0.9 1 -Current Size (cm) - Width 1.4 1.4 1.4 -Current Size (cm) - Depth 0.2 0.1 0.1 -Total Square Cm 1.12 1.26 1.4 -Date of Last Picture (Recall this 06/16/22 field) -Photo Taken Yes -Epithelialization None Present -Tunneling No -Undermining/Tunneling No -Circular Undermining No -Exudate Amt Medium Small Small -Exudate Type Serosanguineous Serosanguineous Serosanguineous -Wound Margin Thickened Distinct, Distinct, Outline Outline Attached Attached -Granulation Amt Large (67-100%) Large (67-100%) Medium (34-66%) -Granulation Quality Red Red Tromm[place] -Slough/Fibrin Yes -Necrosis Amt Small (1-33%) None Present (0 Medium (34-66%) %) -Necrotic Tissue Type Adherent Slough Adherent Slough -Texture (Angie-wound Skin Appearance) Assessed,Callus Assessed, Assessed, ,Scarring Scarring Scarring -Moisture (Angie-wound Skin Appearance) Assessed,Dry/ No Abnormality, No Abnormality, Scaly Assessed Assessed -Color (Angie-wound Skin Appearance) Assessed No Abnormality, No Abnormality, Assessed Assessed -Temperature (Angie-wound Skin No Abnormality No Abnormality No Abnormality Appearance) (Pt Warm) (Pt Warm) (Pt Warm) -Tenderness on Palpation (Angie-wound No No No Skin Appearance) -Ulcer Cleansing Rinsed/ Rinsed/ Rinsed/ Irrigated with Irrigated with Irrigated with Saline Saline Saline -Foul Odor after Cleansing No No No -Anesthetic Used 5% Lidocaine 5% Lidocaine 5% Lidocaine Gel Gel Gel WC - Nurse 2 - General Ulcer CM Notes Start: 06/16/22 09:06 Freq: Status: Active Protocol: Activity Type Activity Date Activity User E-sign Co-sign Detail Recorded Client Recorded Date Recorded By Document 06/16/22 09:52 PL [id number] 06/16/22 09:56 PL Edit Result 06/16/22 09:52 PL (1) [id number] 06/17/22 16:18 PL Document 06/23/22 10:42 MW [id number] 06/23/22 10:52 MW Document 06/30/22 11:11 MW [id number] 06/30/22 11:20 MW (1) #9 Left 2nd toe - Debridement - Subq, 1st 20sq cm No => Yes 06/16/22 06/23/22 06/30/22 09:52 10:42 11:11 Wound Center Nurse 2 #9 Left 2nd toe -Time : 10:44 -Correct Patient Yes Yes -Correct Side, Site, Position Yes Yes -Correct Procedure Yes Yes -Procedure Performed Yes No -Type of Procedure Debridement -Clinical Debridement Subcutaneous -Tissue Removed Subcutaneous -Post Debridement (cm) - Length 0.6 0 -Post Debridement (cm) - Width 0.1 0 -Post Debridement (cm) - Depth 0.1 0 -Total Square (Post) (cm) 0.06 0 -Area of Debridement (cm) - Length 0.6 -Area of Debridement (cm) - Width 1 -Total Square (Area) (cm) 0.6 -Tunneling No No -Undermining/Tunneling No No -Circular Undermining No No -Wound/Ulcer Outcome Not Healed Healed- Epithelialized -Ulcer Cleansing Rinsed/ Irrigated with Saline -Foul Odor after Cleansing No No -Bioengineered Tissue No No -Bleeding Controlled with Pressure -Treatment Response Procedure Tolerated Well -Debridement - Subq, 1st 20sq cm Yes #6 Right 5th Toe -Procedure Performed No -Wound/Ulcer Outcome Healed- Epithelialized #10 L PLANTAR -Time : 10:46 11:11 -Correct Patient Yes Yes Yes -Correct Side, Site, Position Yes Yes Yes -Correct Procedure Yes Yes Yes -Procedure Performed Yes Yes Yes -Type of Procedure Debridement Debridement Debridement -Clinical Debridement Subcutaneous Subcutaneous Subcutaneous -Tissue Removed Subcutaneous Subcutaneous Subcutaneous -Post Debridement (cm) - Length 1.2 1.1 1.0 -Post Debridement (cm) - Width 1.7 1.4 1.5 -Post Debridement (cm) - Depth 0.2 0.1 0.1 -Total Square (Post) (cm) 2.04 1.54 1.50 -Area of Debridement (cm) - Length 1.2 1.1 1.0 -Area of Debridement (cm) - Width 1.7 1.4 1.5 -Total Square (Area) (cm) 2.04 1.54 1.50 -Tunneling No No No -Undermining/Tunneling No No No -Circular Undermining No No No -Wound/Ulcer Outcome Not Healed Not Healed Not Healed -Ulcer Cleansing Rinsed/ Rinsed/ Rinsed/ Irrigated with Irrigated with Irrigated with Saline Saline Saline -Foul Odor after Cleansing No No No -Bioengineered Tissue Yes Yes Yes -Type of Bioengineered Tissue Epifix 18mm Epifix 18mm Epifix 18mm Disc Disc Disc -Expiration Date 03/14/27 03/14/27 03/14/27 -Product Lot Number [id number] -Percent Used 100 100 100 -Lot number of Saline Used [id number] -Bleeding Controlled with Pressure Pressure Pressure -Treatment Response Procedure Procedure Procedure Tolerated Well Tolerated Well Tolerated Well -Offloading No No -Debridement - Subq, 1st 20sq cm No No No -Apply Skin Sub - 1st 25 sq cm - Feet 1 1 1 -Epifix 18mm Disc 3 3 3 Pain Scale: 0-10 Numeric Is Patient Pain Free? Yes Yes Yes WC - Nurse 3 - General Ulcer D/C NN Start: 06/16/22 09:06 Freq: Status: Active Protocol: Activity Type Activity Date Activity User E-sign Co-sign Detail Recorded Client Recorded Date Recorded By Document 06/16/22 10:17 KR [id number] 06/16/22 10:18 KR Document 06/23/22 11:26 KR [id number] 06/23/22 11:26 KR Document 06/30/22 11:24 MW [id number] 06/30/22 11:25 MW 06/16/22 06/23/22 06/30/22 10:17 11:26 11:24 Wound Care Nurse 3 #9 Left 2nd toe -Primary Dressing Applied Aquacel Extra -Primary Dressing Covered/Secured with Dry Gauze,Dry Gauze & Roll Gauze,Secured with Tape -Aquacel Extra 1 #10 L PLANTAR -Ulcer Cleansing Not Cleansed -Foul Odor after Cleansing No -Negative Pressure Wound Therapy N/A -Primary Dressing Applied Aquacel AG 4x4 Aquacel Extra -Other Dressing ABD, STASIS PAD -Primary Dressing Covered/Secured with Dry Gauze, Dry Gauze,Dry Dry Gauze & Secured with Gauze & Roll Roll Gauze, Tape Gauze,Secured Secured with with Tape Tape -Aquacel Extra 1 -Aquacel AG 4x4 1 Treatment Response Procedure Tolerated Well Pain Scale: 0-10 Numeric Is Patient Pain Free? 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 (2) Decubitus ulcer limited to breakdown of skin (stage 2): CODE(S): L89.92 - Pressure ulcer of unspecified site, stage 2 QUALIFIERS: Pressure injury location: toe Laterality: left Qualified Code(s): L89.892 - Pressure ulcer of other site, stage 2 PLAN: Epi fix #9 applied to plantar left foot . Covered with veil Steri-Strips and Aquacel extra over top with stasis pad under wound regular dressing on top of that Leave dressing on for the week do not change dressing Follow-up sooner if having issues
[2022-07-07 10:59] VITALS: BP 156/69; PULSE 78; RESP 18; TEMP 36.1
--- NOTE | 2022-07-07 12:01 | PN.PCM_ITS ---
History of Present Illness Date of Service: 07/07/22 Chief Complaint: Follow-up on right fifth toe plantar side left plantar great toe and left plantar second toe. History of Wound: 76-year-old white male with previous history of amputations of the toes. Appears with increase in wounds to the toes for the last 6 weeks at least. He has been seen by his own internal security manager Dr. Nguyen and he referred him to here. He is currently using Aquacel to his wounds. His usually helps with dressing changes without a problem. Progress of Wound: The wound Right fifth toe is healed, left second toe is healed. The left plantar foot wound is smaller but deeper this week. We will culture before adding the last epi fix. We will continue with epi fix #10 has developed some pressure area underneath wound we will use a Stasis pad under the wound when we are dressing it. Subjective Subjective Patient has no concerns Objective Data Objective Data We will obtain cultures and call patient with results we will continue using the #10 epi fix. We will try to offload that foot did get all of the callus off under the wound this week and we will use another stasis pad Vital Signs: Vital Signs Temp Pulse Resp BP O2 Del Method 96.9 F L 78 18 156/69 H Room Air 07/07/22 10:59 07/07/22 10:59 07/07/22 10:59 07/07/22 10:59 07/07/22 10:59 Oxygen Delivery Method Room Air Lab / Micro Data Attestation: I reviewed the patient's lab results. Physical Exam Const oriented x3 General Appearance: cooperative Exam Limitations: no limitations Resp normal respiratory effort Effort and Inspection: able to speak in complete sentences Auscultation: clear to auscultation bilaterally Cardio regular rate and regular rhythm Palpation: normal PMI Rate: regular rate Rhythm: regular rhythm GI Auscultation: normoactive bowel sounds Palpation: soft and no hepatosplenomegaly Extremity normal to inspection General Extremity: normal exam except as noted Skin no rashes or lesions noted Wound Narrative: Open wounds with callus around on the right fifth toe plantar left second toe plantar and left great toe plantar with all with open wounds also. Neuro oriented x3 Psych Appearance: grossly normal Speech: normal speech Thought Content: normal thought content Judgement: judgement good Debridement Note Debridement Note Wound debrided: Left plantar ball of foot Laterality: Left Type of Debridement: Excisional debridement Anesthesia Used: 5% Lidocaine Gel Depth: in the subcutaneous layer Percentage of wound debrided: 100 Instrument Used: 5mm curette, #15 blade, Forceps and - (Nippers) Tissue Removed: Callus devitalized tissue fibrin Severity: Fat Layer Exposed Amount of bleeding with debridement: Mild Bleeding Controlled with: Compression and gauze Patient tolerated procedure: Patient tolerated procedure well Post-Debridement Measurements and Additional Note: Post-Debridement Measurements/Treatment - Nurse 1 - General Ulcer Assessment Start: 06/16/22 09:06 Freq: Status: Active Protocol: REMA Activity Type Activity Date Activity User E-sign Co-sign Detail Recorded Client Recorded Date Recorded By Document 06/16/22 09:06 [facility] [id number] 06/16/22 09:17 [facility] Document 06/23/22 10:21 [id number] 06/23/22 10:26 Document 06/30/22 10:59 [id number] 06/30/22 11:01 Document 07/07/22 10:59 [facility] [id number] 07/07/22 11:09 [facility] 06/16/22 06/23/22 06/30/22 09:06 10:21 10:59 - Today's Visit Information Type of service Follow-up Visit Follow-up Visit Follow-up Visit (Physician/BORING MACHINE OPERATOR (Physician/BORING MACHINE OPERATOR (Physician/BORING MACHINE OPERATOR ) ) ) Arrival Mode Ambulatory Ambulatory Ambulatory Transfer Assistance None Patient Identification Verified (Name & Yes Yes Yes ) Patient Requires Transmission-Based No Precautions Vital Signs Temperature (97.8 F-99.1 F) 96.2 F L 96.8 F L 97.6 F L Temperature Source Temporal Temporal Temporal Pulse Rate (60-100) 68 76 68 Pulse Location Monitor Monitor Monitor Respiratory Rate (12-18) 16 Respiratory rate source Observation Oxygen Delivery Method Room Air Blood Pressure (90/60-120/80) 139/86 H 142/74 H 150/79 H Blood Pressure Mean (mm Hg) 103 96 102 Source Monitor Monitor Monitor Position Sitting Sitting Sitting Blood Pressure Location Left Arm Left Arm Left Arm History Since Last Visit- (Skip if this is Patient's initial visit) Have you changed medications since your No No No last visit? Any new allergies or adverse reactions No No No Had a fall/change in ADL's that may No No No increase risk of falls Signs or symptoms of abuse and/or No No No neglect since last visit Have you been in the hospital since your No No No last visit? Has dressing in place as prescribed Yes Yes Yes Has compression in place as prescribed N/A N/A N/A Has offloadiing in place as prescribed Yes Yes N/A Experienced any changes in pain level or No No No management Left Footwear Removable Cast Regular Shoe Regular Shoe Walker/Walking Boot Right Footwear Diabetic Shoe Removable Cast Regular Shoe Walker/Walking Boot Pain Scale: 0-10 Numeric Is Patient Pain Free? Yes Yes Yes 07/07/22 10:59 - Today's Visit Information Type of service Follow-up Visit (Physician/BORING MACHINE OPERATOR ) Arrival Mode Ambulatory Transfer Assistance None Patient Identification Verified (Name & Yes ) Patient Requires Transmission-Based No Precautions Vital Signs Temperature (97.8 F-99.1 F) 96.9 F L Temperature Source Temporal Pulse Rate (60-100) 78 Pulse Location Monitor Respiratory Rate (12-18) 18 Respiratory rate source Observation Oxygen Delivery Method Room Air Blood Pressure (90/60-120/80) 156/69 H Blood Pressure Mean (mm Hg) 98 Source Monitor Position Sitting Blood Pressure Location Left Arm History Since Last Visit- (Skip if this is Patient's initial visit) Have you changed medications since your No last visit? Any new allergies or adverse reactions No Had a fall/change in ADL's that may No increase risk of falls Signs or symptoms of abuse and/or No neglect since last visit Have you been in the hospital since your No last visit? Has dressing in place as prescribed Yes Has compression in place as prescribed N/A Has offloadiing in place as prescribed Yes Experienced any changes in pain level or No management Left Footwear Removable Cast Walker/Walking Boot Right Footwear Diabetic Shoe Pain Scale: 0-10 Numeric Is Patient Pain Free? Yes - Nurse 1 - General Ulcer Measurement Start: 06/16/22 09:06 Freq: Status: Active Protocol: Activity Type Activity Date Activity User E-sign Co-sign Detail Recorded Client Recorded Date Recorded By Document 06/16/22 09:06 [facility] [id number] 06/16/22 09:17 [facility] Document 06/23/22 10:21 KR [id number] 06/23/22 10:26 KR Document 06/30/22 10:59 KR [id number] 06/30/22 11:01 Document 07/07/22 10:59 [facility] [id number] 07/07/22 11:09 [facility] 06/16/22 06/23/22 06/30/22 09:06 10:21 10:59 Wound Center Nurse 1 #9 Left 2nd toe -Combined with other wound No -Current Size (cm) - Length 0.2 0.3 -Current Size (cm) - Width 0.1 0.1 -Current Size (cm) - Depth 0.1 0.1 -Total Square Cm 0.02 0.03 -Date of Last Picture (Recall this 06/16/22 field) -Photo Taken No -Epithelialization None Present -Tunneling No -Undermining/Tunneling No -Circular Undermining No -Exudate Amt Small None Present -Exudate Type Serosanguineous -Wound Margin Distinct, Distinct, Outline Outline Attached Attached -Granulation Amt Large (67-100%) Small (1-33%) -Granulation Quality [place] -Slough/Fibrin Yes -Necrosis Amt Large (67-100%) None Present (0 %) -Necrotic Tissue Type Adherent Slough -Texture (Angie-wound Skin Appearance) Assessed, Assessed, Scarring Scarring -Moisture (Angie-wound Skin Appearance) Assessed,Dry/ No Abnormality, Scaly Assessed -Color (Angie-wound Skin Appearance) Assessed No Abnormality, Assessed -Temperature (Angie-wound Skin No Abnormality No Abnormality Appearance) (Pt Warm) (Pt Warm) -Tenderness on Palpation (Angie-wound No No Skin Appearance) -Ulcer Cleansing Rinsed/ Rinsed/ Irrigated with Irrigated with Saline Saline -Foul Odor after Cleansing No No -Anesthetic Used 5% Lidocaine 5% Lidocaine Gel Gel #6 Right 5th Toe -Combined with other wound No -Current Size (cm) - Length 0.1 -Current Size (cm) - Width 0.1 -Current Size (cm) - Depth 0.1 -Total Square Cm 0.01 -Date of Last Picture (Recall this 06/16/22 field) -Photo Taken Yes -Epithelialization Large 67-100% -Exudate Amt None Present -Slough/Fibrin Yes -Necrosis Amt Small (1-33%) -Necrotic Tissue Type Eschar -Texture (Angie-wound Skin Appearance) Assessed, Scarring -Moisture (Angie-wound Skin Appearance) Assessed -Color (Angie-wound Skin Appearance) Assessed -Temperature (Angie-wound Skin No Abnormality Appearance) (Pt Warm) -Tenderness on Palpation (Angie-wound No Skin Appearance) -Ulcer Cleansing Rinsed/ Irrigated with Saline -Foul Odor after Cleansing No -Anesthetic Used 5% Lidocaine Gel #10 L PLANTAR -Combined with other wound No -Current Size (cm) - Length 0.8 0.9 1 -Current Size (cm) - Width 1.4 1.4 1.4 -Current Size (cm) - Depth 0.2 0.1 0.1 -Total Square Cm 1.12 1.26 1.4 -Date of Last Picture (Recall this 06/16/22 field) -Photo Taken Yes -Epithelialization None Present -Tunneling No -Undermining/Tunneling No -Circular Undermining No -Exudate Amt Medium Small Small -Exudate Type Serosanguineous Serosanguineous Serosanguineous -Wound Margin Thickened Distinct, Distinct, Outline Outline Attached Attached -Granulation Amt Large (67-100%) Large (67-100%) Medium (34-66%) -Granulation Quality [place] -Slough/Fibrin Yes -Necrosis Amt Small (1-33%) None Present (0 Medium (34-66%) %) -Necrotic Tissue Type Adherent Slough Adherent Slough -Texture (Angie-wound Skin Appearance) Assessed,Callus Assessed, Assessed, ,Scarring Scarring Scarring -Moisture (Angie-wound Skin Appearance) Assessed,Dry/ No Abnormality, No Abnor mality, Scaly Assessed Assessed -Color (Angie-wound Skin Appearance) Assessed No Abnormality, No Abnormality, Assessed Assessed -Temperature (Angie-wound Skin No Abnormality No Abnormality No Abnormality Appearance) (Pt Warm) (Pt Warm) (Pt Warm) -Tenderness on Palpation (Angie-wound No No No Skin Appearance) -Ulcer Cleansing Rinsed/ Rinsed/ Rinsed/ Irrigated with Irrigated with Irrigated with Saline Saline Saline -Foul Odor after Cleansing No No No -Anesthetic Used 5% Lidocaine 5% Lidocaine 5% Lidocaine Gel Gel Gel 07/07/22 10:59 Wound Center Nurse 1 #9 Left 2nd toe -Combined with other wound -Current Size (cm) - Length -Current Size (cm) - Width -Current Size (cm) - Depth -Total Square Cm -Date of Last Picture (Recall this field) -Photo Taken -Epithelialization -Tunneling -Undermining/Tunneling -Circular Undermining -Exudate Amt -Exudate Type -Wound Margin -Granulation Amt -Granulation Quality -Slough/Fibrin -Necrosis Amt -Necrotic Tissue Type -Texture (Angie-wound Skin Appearance) -Moisture (Angie-wound Skin Appearance) -Color (Angie-wound Skin Appearance) -Temperature (Angie-wound Skin Appearance) -Tenderness on Palpation (Angie-wound Skin Appearance) -Ulcer Cleansing -Foul Odor after Cleansing -Anesthetic Used #6 Right 5th Toe -Combined with other wound -Current Size (cm) - Length -Current Size (cm) - Width -Current Size (cm) - Depth -Total Square Cm -Date of Last Picture (Recall this field) -Photo Taken -Epithelialization -Exudate Amt -Slough/Fibrin -Necrosis Amt -Necrotic Tissue Type -Texture (Angie-wound Skin Appearance) -Moisture (Angie-wound Skin Appearance) -Color (Angie-wound Skin Appearance) -Temperature (Angie-wound Skin Appearance) -Tenderness on Palpation (Angie-wound Skin Appearance) -Ulcer Cleansing -Foul Odor after Cleansing -Anesthetic Used #10 L PLANTAR -Combined with other wound No -Current Size (cm) - Length 1 -Current Size (cm) - Width 1.4 -Current Size (cm) - Depth 0.2 -Total Square Cm 1.4 -Date of Last Picture (Recall this 07/07/22 field) -Photo Taken Yes -Epithelialization Small 1-33% -Tunneling No -Undermining/Tunneling No -Circular Undermining No -Exudate Amt Medium -Exudate Type Serosanguineous -Wound Margin Distinct, Outline Attached -Granulation Amt Large (67-100%) -Granulation Quality Red -Slough/Fibrin Yes -Necrosis Amt Small (1-33%) -Necrotic Tissue Type Adherent Slough -Texture (Angie-wound Skin Appearance) Assessed,Callus ,Scarring -Moisture (Angie-wound Skin Appearance) Assessed -Color (Angie-wound Skin Appearance) Assessed -Temperature (Angie-wound Skin No Abnormality Appearance) (Pt Warm) -Tenderness on Palpation (Anige-wound No Skin Appearance) -Ulcer Cleansing Soap and Water -Foul Odor after Cleansing No -Anesthetic Used 5% Lidocaine Gel WC - Nurse 2 - General Ulcer CM Notes Start: 06/16/22 09:06 Freq: Status: Active Protocol: Activity Type Activity Date Activity User E-sign Co-sign Detail Recorded Client Recorded Date Recorded By Document 06/16/22 09:52 PL [id number] 06/16/22 09:56 PL Edit Result 06/16/22 09:52 PL (1) [id number] 06/17/22 16:18 PL Document 06/23/22 10:42 MW [id number] 06/23/22 10:52 MW Document 06/30/22 11:11 MW [id number] 06/30/22 11:20 MW Document 07/07/22 11:21 MW [id number] 07/07/22 11:33 MW (1) #9 Left 2nd toe - Debridement - Subq, 1st 20sq cm No => Yes 06/16/22 06/23/22 06/30/22 09:52 10:42 11:11 Wound Center Nurse 2 #9 Left 2nd toe -Time 09: 10:44 -Correct Patient Yes Yes -Correct Side, Site, Position Yes Yes -Correct Procedure Yes Yes -Procedure Performed Yes No -Type of Procedure Debridement -Clinical Debridement Subcutaneous -Tissue Removed Subcutaneous -Post Debridement (cm) - Length 0.6 0 -Post Debridement (cm) - Width 0.1 0 -Post Debridement (cm) - Depth 0.1 0 -Total Square (Post) (cm) 0.06 0 -Area of Debridement (cm) - Length 0.6 -Area of Debridement (cm) - Width 1 -Total Square (Area) (cm) 0.6 -Tunneling No No -Undermining/Tunneling No No -Circular Undermining No No -Wound/Ulcer Outcome Not Healed Healed- Epithelialized -Ulcer Cleansing Rinsed/ Irrigated with Saline -Foul Odor after Cleansing No No -Bioengineered Tissue No No -Bleeding Controlled with Pressure -Treatment Response Procedure Tolerated Well -Debridement - Subq, 1st 20sq cm Yes #6 Right 5th Toe -Procedure Performed No -Wound/Ulcer Outcome Healed- Epithelialized #10 L PLANTAR -Time :22 10:46 11:11 -Correct Patient Yes Yes Yes -Correct Side, Site, Position Yes Yes Yes -Correct Procedure Yes Yes Yes -Procedure Performed Yes Yes Yes -Type of Procedure Debridement Debridement Debridement -Clinical Debridement Subcutaneous Subcutaneous Subcutaneous -Tissue Removed Subcutaneous Subcutaneous Subcutaneous -Post Debridement (cm) - Length 1.2 1.1 1.0 -Post Debridement (cm) - Width 1.7 1.4 1.5 -Post Debridement (cm) - Depth 0.2 0.1 0.1 -Total Square (Post) (cm) 2.04 1.54 1.50 -Area of Debridement (cm) - Length 1.2 1.1 1.0 -Area of Debridement (cm) - Width 1.7 1.4 1.5 -Total Square (Area) (cm) 2.04 1.54 1.50 -Tunneling No No No -Undermining/Tunneling No No No -Circular Undermining No No No -Wound/Ulcer Outcome Not Healed Not Healed Not Healed -Ulcer Cleansing Rinsed/ Rinsed/ Rinsed/ Irrigated with Irrigated with Irrigated with Saline Saline Saline -Foul Odor after Cleansing No No No -Bioengineered Tissue Yes Yes Yes -Type of Bioengineered Tissue Epifix 18mm Epifix 18mm Epifix 18mm Disc Disc Disc -Expiration Date 03/14/27 03/14/27 03/14/27 -Product Lot Number [id number] -Percent Used 100 100 100 -Lot number of Saline Used [id number] -Bleeding Controlled with Pressure Pressure Pressure -Treatment Response Procedure Procedure Procedure Tolerated Well Tolerated Well Tolerated Well -Offloading No No -Debridement - Subq, 1st 20sq cm No No No -Apply Skin Sub - 1st 25 sq cm - Feet 1 1 1 -Epifix 18mm Disc 3 3 3 Pain Scale: 0-10 Numeric Is Patient Pain Free? Yes Yes Yes 07/07/22 11:21 Wound Center Nurse 2 #9 Left 2nd toe -Time -Correct Patient -Correct Side, Site, Position -Correct Procedure -Procedure Performed -Type of Procedure -Clinical Debridement -Tissue Removed -Post Debridement (cm) - Length -Post Debridement (cm) - Width -Post Debridement (cm) - Depth -Total Square (Post) (cm) -Area of Debridement (cm) - Length -Area of Debridement (cm) - Width -Total Square (Area) (cm) -Tunneling -Undermining/Tunneling -Circular Undermining -Wound/Ulcer Outcome -Ulcer Cleansing -Foul Odor after Cleansing -Bioengineered Tissue -Bleeding Controlled with -Treatment Response -Debridement - Subq, 1st 20sq cm #6 Right 5th Toe -Procedure Performed -Wound/Ulcer Outcome #10 L PLANTAR -Time 11:24 -Correct Patient Yes -Correct Side, Site, Position Yes -Correct Procedure Yes -Procedure Performed Yes -Type of Procedure Debridement -Clinical Debridement Subcutaneous -Tissue Removed Subcutaneous -Post Debridement (cm) - Length 1.0 -Post Debridement (cm) - Width 1.3 -Post Debridement (cm) - Depth 0.3 -Total Square (Post) (cm) 1.30 -Area of Debridement (cm) - Length 1.0 -Area of Debridement (cm) - Width 1.3 -Total Square (Area) (cm) 1.30 -Tunneling No -Undermining/Tunneling No -Circular Undermining No -Wound/Ulcer Outcome Not Healed -Ulcer Cleansing Rinsed/ Irrigated with Saline -Foul Odor after Cleansing No -Bioengineered Tissue Yes -Type of Bioengineered Tissue Epifix 18mm Disc -Expiration Date 04/14/27 -Product Lot Number [id number] -Percent Used 100 -Lot number of Saline Used [id number] -Bleeding Controlled with Pressure -Treatment Response Procedure Tolerated Well -Offloading No -Debridement - Subq, 1st 20sq cm No -Apply Skin Sub - 1st 25 sq cm - Feet 1 -Epifix 18mm Disc 3 Pain Scale: 0-10 Numeric Is Patient Pain Free? Yes WC - Nurse 3 - General Ulcer D/C NN Start: 06/16/22 09:06 Freq: Status: Active Protocol: Activity Type Activity Date Activity User E-sign Co-sign Detail Recorded Client Recorded Date Recorded By Document 06/16/22 10:17 KR [id number] 06/16/22 10:18 KR Document 06/23/22 11:26 KR [id number] 06/23/22 11:26 KR Document 06/30/22 11:24 MW [id number] 06/30/22 11:25 MW Document 07/07/22 11:53 [id number] 07/07/22 11:53 KR 06/16/22 06/23/22 06/30/22 10:17 11:26 11:24 Wound Care Nurse 3 #9 Left 2nd toe -Primary Dressing Applied Aquacel Extra -Primary Dressing Covered/Secured with Dry Gauze,Dry Gauze & Roll Gauze,Secured with Tape -Aquacel Extra 1 #10 L PLANTAR -Ulcer Cleansing Not Cleansed -Foul Odor after Cleansing No -Negative Pressure Wound Therapy N/A -Primary Dressing Applied Aquacel AG 4x4 Aquacel Extra -Other Dressing ABD, STASIS PAD -Primary Dressing Covered/Secured with Dry Gauze, Dry Gauze,Dry Dry Gauze & Secured with Gauze & Roll Roll Gauze, Tape Gauze,Secured Secured with with Tape Tape -Aquacel Extra 1 -Aquacel AG 4x4 1 Treatment Response Procedure Tolerated Well Pain Scale: 0-10 Numeric Is Patient Pain Free? Yes Yes Yes WC - Visit Discharge Discharge Condition Stable Stable Stable Ambulatory Status Ambulatory Ambulatory Ambulatory Transportation Private Auto Private Auto Private Auto Accompanied by SELF Medication Reconcilliation completed & No provided to patient/care provider Clinical Summary of Care Provided Yes 07/07/22 11:53 Wound Care Nurse 3 #9 Left 2nd toe -Primary Dressing Applied -Primary Dressing Covered/Secured with -Aquacel Extra #10 L PLANTAR -Ulcer Cleansing Rinsed/ Irrigated with Saline -Foul Odor after Cleansing No -Negative Pressure Wound Therapy N/A -Primary Dressing Applied Aquacel Extra -Other Dressing ABD -Primary Dressing Covered/Secured with Dry Gauze & Roll Gauze, Secured with Tape -Aquacel Extra 1 -Aquacel AG 4x4 Treatment Response Pain Scale: 0-10 Numeric Is Patient Pain Free? 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 (2) Decubitus ulcer limited to breakdown of skin (stage 2): CODE(S): L89.92 - Pressure ulcer of unspecified site, stage 2 QUALIFIERS: Pressure injury location: toe Laterality: left Qualified Code(s): L89.892 - Pressure ulcer of other site, stage 2 PLAN: Epi fix #10 applied to plantar left foot . Covered with veil Steri-Strips and Aquacel extra over top with stasis pad under wound regular dressing on top of that Leave dressing on for the week do not change dressing Cultures obtained for aerobic and anaerobic bacteria, will call with results Follow-up sooner if having issues
[2022-07-14 10:58] VITALS: BP 121/71; PULSE 70; RESP 16; TEMP 36.4
--- NOTE | 2022-07-14 12:42 | PCM.WC.PN ---
History of Present Illness Date of Service: 07/14/22 Chief Complaint: Follow-up on right fifth toe plantar side left plantar great toe and left plantar second toe. History of Wound: 76-year-old white male with previous history of amputations of the toes. Appears with increase in wounds to the toes for the last 6 weeks at least. He has been seen by his own conference services director Dr. Nguyen and he referred him to here. He is currently using Aquacel to his wounds. His usually helps with dressing changes without a problem. Progress of Wound: The wound Right fifth toe is healed, left second toe is healed. The left plantar foot wound is smaller this week. The cultures came back positive and we is been started on antibiotic therapy. His last epi fix was last week we will continue using Promogran on the wound base with a daily dressing. Patient is currently taking his ciprofloxacin and tolerating it well Subjective Subjective Patient has no concerns Objective Data Objective Data Area appears smaller healing better antibiotic therapy is working very well we will continue with the Promogran to try to heal closed Vital Signs: Vital Signs Temp Pulse Resp BP O2 Del Method 97.5 F L 70 16 121/71 H Room Air 07/14/22 10:58 07/14/22 10:58 07/14/22 10:58 07/14/22 10:58 07/14/22 10:58 Oxygen Delivery Method Room Air Lab / Micro Data Attestation: I reviewed the patient's lab results. Micro: Microbiology 07/07/22 11:30 Wound Abcess - Plantar Gram Stain - Final 07/07/22 11:30 Wound Abcess - Plantar Wound Culture - Final Pseudomonas aeroginosa 07/07/22 11:30 Wound Abcess - Plantar Anaerobic Culture - Preliminary No growth in 48 hours. Physical Exam Const oriented x3 General Appearance: cooperative Exam Limitations: no limitations Resp normal respiratory effort Effort and Inspection: able to speak in complete sentences Auscultation: clear to auscultation bilaterally Cardio regular rate and regular rhythm Palpation: normal PMI Rate: regular rate Rhythm: regular rhythm GI Auscultation: normoactive bowel sounds Palpation: soft and no hepatosplenomegaly Extremity normal to inspection General Extremity: normal exam except as noted Skin no rashes or lesions noted Wound Narrative: Open wounds with callus around on the right fifth toe plantar left second toe plantar and left great toe plantar with all with open wounds also. Neuro oriented x3 Psych Appearance: grossly normal Speech: normal speech Thought Content: normal thought content Judgement: judgement good Debridement Note Debridement Note Wound debrided: Left foot ulcer Laterality: Left Type of Debridement: Excisional debridement Anesthesia Used: 5% Lidocaine Gel Depth: in the subcutaneous layer Percentage of wound debrided: 100 Instrument Used: 7mm curette Tissue Removed: Fibrin and callus Severity: Fat Layer Exposed Amount of bleeding with debridement: Mild Bleeding Controlled with: Compression and gauze Patient tolerated procedure: Patient tolerated procedure well Post-Debridement Measurements and Additional Note: Post-Debridement Measurements/Treatment - Nurse 1 - General Ulcer Assessment Start: 06/16/22 09:06 Freq: Status: Active Protocol: BAUDILIO Activity Type Activity Date Activity User E-sign Co-sign Detail Recorded Client Recorded Date Recorded By Document 06/16/22 09:06 [facility] [id number] 06/16/22 09:17 [facility] Document 06/23/22 10:21 [id number] 06/23/22 10:26 Document 06/30/22 10:59 [id number] 06/30/22 11:01 Document 07/07/22 10:59 [facility] [id number] 07/07/22 11:09 [facility] Document 07/14/22 10:58 [facility] [id number] 07/14/22 11:03 [facility] 06/16/22 06/23/22 06/30/22 09:06 10:21 10:59 [facility] Today's Visit Information Type of service Follow-up Visit Follow-up Visit Follow-up Visit (Physician/FOUNTAIN HELPER (Physician/FOUNTAIN HELPER (Physician/FOUNTAIN HELPER ) ) ) Arrival Mode Ambulatory Ambulatory Ambulatory Transfer Assistance None Patient Identification Verified (Name & Yes Yes Yes ) Patient Requires Transmission-Based No Precautions Vital Signs Temperature (97.8 F-99.1 F) 96.2 F L 96.8 F L 97.6 F L Temperature Source Temporal Temporal Temporal Pulse Rate (60-100) 68 76 68 Pulse Location Monitor Monitor Monitor Respiratory Rate (12-18) 16 Respiratory rate source Observation Oxygen Delivery Method Room Air Blood Pressure (90/60-120/80) 139/86 H 142/74 H 150/79 H Blood Pressure Mean (mm Hg) 103 96 102 Source Monitor Monitor Monitor Position Sitting Sitting Sitting Blood Pressure Location Left Arm Left Arm Left Arm History Since Last Visit- (Skip if this is Patient's initial visit) Have you changed medications since your No No No last visit? Any new allergies or adverse reactions No No No Had a fall/change in ADL's that may No No No increase risk of falls Signs or symptoms of abuse and/or No No No neglect since last visit Have you been in the hospital since your No No No last visit? Has dressing in place as prescribed Yes Yes Yes Has compression in place as prescribed N/A N/A N/A Has offloadiing in place as prescribed Yes Yes N/A Experienced any changes in pain level or No No No management Left Footwear Removable Cast Regular Shoe Regular Shoe Walker/Walking Boot Right Footwear Diabetic Shoe Removable Cast Regular Shoe Walker/Walking Boot Other Footwear Pain Scale: 0-10 Numeric Is Patient Pain Free? Yes Yes Yes 07/07/22 07/14/22 10:59 10:58 WC - Today's Visit Information Type of service Follow-up Visit Follow-up Visit (Physician/FOUNTAIN HELPER (Physician/FOUNTAIN HELPER ) ) Arrival Mode Ambulatory Ambulatory Transfer Assistance None None Patient Identification Verified (Name & Yes Yes ) Patient Requires Transmission-Based No No Precautions Vital Signs Temperature (97.8 F-99.1 F) 96.9 F L 97.5 F L Temperature Source Temporal Temporal Pulse Rate (60-100) 78 70 Pulse Location Monitor Monitor Respiratory Rate (12-18) 18 16 Respiratory rate source Observation Observation Oxygen Delivery Method Room Air Room Air Blood Pressure (90/60-120/80) 156/69 H 121/71 H Blood Pressure Mean (mm Hg) 98 87 Source Monitor Monitor Position Sitting Sitting Blood Pressure Location Left Arm Left Arm History Since Last Visit- (Skip if this is Patient's initial visit) Have you changed medications since your No No last visit? Any new allergies or adverse reactions No No Had a fall/change in ADL's that may No No increase risk of falls Signs or symptoms of abuse and/or No No neglect since last visit Have you been in the hospital since your No No last visit? Has dressing in place as prescribed Yes No Has compression in place as prescribed N/A N/A Has offloadiing in place as prescribed Yes Yes Experienced any changes in pain level or No No management Left Footwear Removable Cast Removable Cast Walker/Walking Walker/Walking Boot Boot Right Footwear Diabetic Shoe Regular Shoe Other Footwear PT REMOVED THIS AM AND SHOWERED Pain Scale: 0-10 Numeric Is Patient Pain Free? Yes Yes WC - Nurse 1 - General Ulcer Measurement Start: 06/16/22 09:06 Freq: Status: Active Protocol: Activity Type Activity Date Activity User E-sign Co-sign Detail Recorded Client Recorded Date Recorded By Document 06/16/22 09:06 [facility] [id number] 06/16/22 09:17 [facility] Document 06/23/22 10:21 KR [id number] 06/23/22 10:26 KR Document 06/30/22 10:59 KR [id number] 06/30/22 11:01 KR Document 07/07/22 10:59 [facility] [id number] 07/07/22 11:09 [facility] Document 07/14/22 10:58 [facility] [id number] 07/14/22 11:03 BMF 06/16/22 06/23/22 06/30/22 09:06 10:21 10:59 Wound Center Nurse 1 #9 Left 2nd toe -Combined with other wound No -Current Size (cm) - Length 0.2 0.3 -Current Size (cm) - Width 0.1 0.1 -Current Size (cm) - Depth 0.1 0.1 -Total Square Cm 0.02 0.03 -Date of Last Picture (Recall this 06/16/22 field) -Photo Taken No -Epithelialization None Present -Tunneling No -Undermining/Tunneling No -Circular Undermining No -Exudate Amt Small None Present -Exudate Type Serosanguineous -Wound Margin Distinct, Distinct, Outline Outline Attached Attached -Granulation Amt Large (67-100%) Small (1-33%) -Granulation Quality Red [place] -Slough/Fibrin Yes -Necrosis Amt Large (67-100%) None Present (0 %) -Necrotic Tissue Type Adherent Slough -Texture (Angie-wound Skin Appearance) Assessed, Assessed, Scarring Scarring -Moisture (Angie-wound Skin Appearance) Assessed,Dry/ No Abnormality, Scaly Assessed -Color (Angie-wound Skin Appearance) Assessed No Abnormality, Assessed -Temperature (Angie-wound Skin No Abnormality No Abnormality Appearance) (Pt Warm) (Pt Warm) -Tenderness on Palpation (Angie-wound No No Skin Appearance) -Ulcer Cleansing Rinsed/ Rinsed/ Irrigated with Irrigated with Saline Saline -Foul Odor after Cleansing No No -Anesthetic Used 5% Lidocaine 5% Lidocaine Gel Gel #6 Right 5th Toe -Combined with other wound No -Current Size (cm) - Length 0.1 -Current Size (cm) - Width 0.1 -Current Size (cm) - Depth 0.1 -Total Square Cm 0.01 -Date of Last Picture (Recall this 06/16/22 field) -Photo Taken Yes -Epithelialization Large 67-100% -Exudate Amt None Present -Slough/Fibrin Yes -Necrosis Amt Small (1-33%) -Necrotic Tissue Type Eschar -Texture (Angie-wound Skin Appearance) Assessed, Scarring -Moisture (Angie-wound Skin Appearance) Assessed -Color (Angie-wound Skin Appearance) Assessed -Temperature (Angie-wound Skin No Abnormality Appearance) (Pt Warm) -Tenderness on Palpation (Angie-wound No Skin Appearance) -Ulcer Cleansing Rinsed/ Irrigated with Saline -Foul Odor after Cleansing No -Anesthetic Used 5% Lidocaine Gel #10 L PLANTAR -Combined with other wound No -Current Size (cm) - Length 0.8 0.9 1 -Current Size (cm) - Width 1.4 1.4 1.4 -Current Size (cm) - Depth 0.2 0.1 0.1 -Total Square Cm 1.12 1.26 1.4 -Date of Last Picture (Recall this 06/16/22 field) -Photo Taken Yes -Epithelialization None Present -Tunneling No -Undermining/Tunneling No -Circular Undermining No -Exudate Amt Medium Small Small -Exudate Type Serosanguineous Serosanguineous Serosanguineous -Wound Margin Thickened Distinct, Distinct, Outline Outline Attached Attached -Granulation Amt Large (67-100%) Large (67-100%) Medium (34-66%) -Granulation Quality Red Red [place] -Slough/Fibrin Yes -Necrosis Amt Small (1-33%) None Present (0 Medium (34-66%) %) -Necrotic Tissue Type Adherent Slough Adherent Slough -Texture (Angie-wound Skin Appearance) Assessed,Callus Assessed, Assessed, ,Scarring Scarring Scarring -Moisture (Angie-wound Skin Appearance) Assessed,Dry/ No Abnormality, No Abnormality, Scaly Assessed Assessed -Color (Angie-wound Skin Appearance) Assessed No Abnormality, No Abnormality, Assessed Assessed -Temperature (Angie-wound Skin No Abnormality No Abnormality No Abnormality Appearance) (Pt Warm) (Pt Warm) (Pt Warm) -Tenderness on Palpation (Angie-wound No No No Skin Appearance) -Ulcer Cleansing Rinsed/ Rinsed/ Rinsed/ Irrigated with Irrigated with Irrigated with Saline Saline Saline -Foul Odor after Cleansing No No No -Anesthetic Used 5% Lidocaine 5% Lidocaine 5% Lidocaine Gel Gel Gel 07/07/22 07/14/22 10:59 10:58 Wound Center Nurse 1 #9 Left 2nd toe -Combined with other wound -Current Size (cm) - Length -Current Size (cm) - Width -Current Size (cm) - Depth -Total Square Cm -Date of Last Picture (Recall this field) -Photo Taken -Epithelialization -Tunneling -Undermining/Tunneling -Circular Undermining -Exudate Amt -Exudate Type -Wound Margin -Granulation Amt -Granulation Quality -Slough/Fibrin -Necrosis Amt -Necrotic Tissue Type -Texture (Angie-wound Skin Appearance) -Moisture (Angie-wound Skin Appearance) -Color (Angie-wound Skin Appearance) -Temperature (Angie-wound Skin Appearance) -Tenderness on Palpation (Angie-wound Skin Appearance) -Ulcer Cleansing -Foul Odor after Cleansing -Anesthetic Used #6 Right 5th Toe -Combined with other wound -Current Size (cm) - Length -Current Size (cm) - Width -Current Size (cm) - Depth -Total Square Cm -Date of Last Picture (Recall this field) -Photo Taken -Epithelialization -Exudate Amt -Slough/Fibrin -Necrosis Amt -Necrotic Tissue Type -Texture (Angie-wound Skin Appearance) -Moisture (Angie-wound Skin Appearance) -Color (Angie-wound Skin Appearance) -Temperature (Angie-wound Skin Appearance) -Tenderness on Palpation (Angie-wound Skin Appearance) -Ulcer Cleansing -Foul Odor after Cleansing -Anesthetic Used #10 L PLANTAR -Combined with other wound No No -Current Size (cm) - Length 1 1 -Current Size (cm) - Width 1.4 1 -Current Size (cm) - Depth 0.2 0.2 -Total Square Cm 1.4 1 -Date of Last Picture (Recall this 07/07/22 07/14/22 field) -Photo Taken Yes Yes -Epithelialization Small 1-33% Small 1-33% -Tunneling No No -Undermining/Tunneling No No -Circular Undermining No No -Exudate Amt Medium Small -Exudate Type Serosanguineous Serosanguineous -Wound Margin Distinct, Distinct, Outline Outline Attached Attached -Granulation Amt Large (67-100%) Large (67-100%) -Granulation Quality Red Red -Slough/Fibrin Yes Yes -Necrosis Amt Small (1-33%) Small (1-33%) -Necrotic Tissue Type Adherent Slough Adherent Slough -Texture (Angie-wound Skin Appearance) Assessed,Callus Assessed, ,Scarring Scarring -Moisture (Angie-wound Skin Appearance) Assessed Assessed,Dry/ Scaly -Color (Angie-wound Skin Appearance) Assessed Assessed -Temperature (Angie-wound Skin No Abnormality No Abnormality Appearance) (Pt Warm) (Pt Warm) -Tenderness on Palpation (Angie-wound No No Skin Appearance) -Ulcer Cleansing Soap and Water Rinsed/ Irrigated with Saline -Foul Odor after Cleansing No No -Anesthetic Used 5% Lidocaine 5% Lidocaine Gel Gel WC - Nurse 2 - General Ulcer CM Notes Start: 06/16/22 09:06 Freq: Status: Active Protocol: Activity Type Activity Date Activity User E-sign Co-sign Detail Recorded Client Recorded Date Recorded By Document 06/16/22 09:52 PL [id number] 06/16/22 09:56 PL Edit Result 06/16/22 09:52 PL (1) [id number] 06/17/22 16:18 PL Document 06/23/22 10:42 MW [id number] 06/23/22 10:52 MW Document 06/30/22 11:11 MW [id number] 06/30/22 11:20 MW Document 07/07/22 11:21 MW [id number] 07/07/22 11:33 MW Document 07/14/22 11:13 MW [id number] 07/14/22 11:16 MW (1) #9 Left 2nd toe - Debridement - Subq, 1st 20sq cm No => Yes 06/16/22 06/23/22 06/30/22 09:52 10:42 11:11 Wound Center Nurse 2 #9 Left 2nd toe -Time 09: 10:44 -Correct Patient Yes Yes -Correct Side, Site, Position Yes Yes -Correct Procedure Yes Yes -Procedure Performed Yes No -Type of Procedure Debridement -Clinical Debridement Subcutaneous -Tissue Removed Subcutaneous -Post Debridement (cm) - Length 0.6 0 -Post Debridement (cm) - Width 0.1 0 -Post Debridement (cm) - Depth 0.1 0 -Total Square (Post) (cm) 0.06 0 -Area of Debridement (cm) - Length 0.6 -Area of Debridement (cm) - Width 1 -Total Square (Area) (cm) 0.6 -Tunneling No No -Undermining/Tunneling No No -Circular Undermining No No -Wound/Ulcer Outcome Not Healed Healed- Epithelialized -Ulcer Cleansing Rinsed/ Irrigated with Saline -Foul Odor after Cleansing No No -Bioengineered Tissue No No -Bleeding Controlled with Pressure -Treatment Response Procedure Tolerated Well -Debridement - Subq, 1st 20sq cm Yes #6 Right 5th Toe -Procedure Performed No -Wound/Ulcer Outcome Healed- Epithelialized #10 L PLANTAR -Time 09: 10:46 11:11 -Correct Patient Yes Yes Yes -Correct Side, Site, Position Yes Yes Yes -Correct Procedure Yes Yes Yes -Procedure Performed Yes Yes Yes -Type of Procedure Debridement Debridement Debridement -Clinical Debridement Subcutaneous Subcutaneous Subcutaneous -Tissue Removed Subcutaneous Subcutaneous Subcutaneous -Post Debridement (cm) - Length 1.2 1.1 1.0 -Post Debridement (cm) - Width 1.7 1.4 1.5 -Post Debridement (cm) - Depth 0.2 0.1 0.1 -Total Square (Post) (cm) 2.04 1.54 1.50 -Area of Debridement (cm) - Length 1.2 1.1 1.0 -Area of Debridement (cm) - Width 1.7 1.4 1.5 -Total Square (Area) (cm) 2.04 1.54 1.50 -Tunneling No No No -Undermining/Tunneling No No No -Circular Undermining No No No -Wound/Ulcer Outcome Not Healed Not Healed Not Healed -Ulcer Cleansing Rinsed/ Rinsed/ Rinsed/ Irrigated with Irrigated with Irrigated with Saline Saline Saline -Foul Odor after Cleansing No No No -Bioengineered Tissue Yes Yes Yes -Type of Bioengineered Tissue Epifix 18mm Epifix 18mm Epifix 18mm Disc Disc Disc -Expiration Date 03/14/27 03/14/27 03/14/27 -Product Lot Number [id number] -Percent Used 100 100 100 -Lot number of Saline Used [id number] -Bleeding Controlled with Pressure Pressure Pressure -Treatment Response Procedure Procedure Procedure Tolerated Well Tolerated Well Tolerated Well -Offloading No No -Debridement - Subq, 1st 20sq cm No No No -Apply Skin Sub - 1st 25 sq cm - Feet 1 1 1 -Epifix 18mm Disc 3 3 3 Pain Scale: 0-10 Numeric Is Patient Pain Free? Yes Yes Yes 07/07/22 07/14/22 11:21 11:13 Wound Center Nurse 2 #9 Left 2nd toe -Time -Correct Patient -Correct Side, Site, Position -Correct Procedure -Procedure Performed -Type of Procedure -Clinical Debridement -Tissue Removed -Post Debridement (cm) - Length -Post Debridement (cm) - Width -Post Debridement (cm) - Depth -Total Square (Post) (cm) -Area of Debridement (cm) - Length -Area of Debridement (cm) - Width -Total Square (Area) (cm) -Tunneling -Undermining/Tunneling -Circular Undermining -Wound/Ulcer Outcome -Ulcer Cleansing -Foul Odor after Cleansing -Bioengineered Tissue -Bleeding Controlled with -Treatment Response -Debridement - Subq, 1st 20sq cm #6 Right 5th Toe -Procedure Performed -Wound/Ulcer Outcome #10 L PLANTAR -Time 11:24 11:14 -Correct Patient Yes Yes -Correct Side, Site, Position Yes Yes -Correct Procedure Yes Yes -Procedure Performed Yes Yes -Type of Procedure Debridement Debridement -Clinical Debridement Subcutaneous Subcutaneous -Tissue Removed Subcutaneous Subcutaneous -Post Debridement (cm) - Length 1.0 1.0 -Post Debridement (cm) - Width 1.3 1.2 -Post Debridement (cm) - Depth 0.3 0.2 -Total Square (Post) (cm) 1.30 1.20 -Area of Debridement (cm) - Length 1.0 1.0 -Area of Debridement (cm) - Width 1.3 1.2 -Total Square (Area) (cm) 1.30 1.20 -Tunneling No No -Undermining/Tunneling No No -Circular Undermining No No -Wound/Ulcer Outcome Not Healed Not Healed -Ulcer Cleansing Rinsed/ Rinsed/ Irrigated with Irrigated with Saline Saline -Foul Odor after Cleansing No No -Bioengineered Tissue Yes No -Type of Bioengineered Tissue Epifix 18mm Disc -Expiration Date 04/14/27 -Product Lot Number [id number] -Percent Used 100 -Lot number of Saline Used [id number] -Bleeding Controlled with Pressure Pressure -Treatment Response Procedure Procedure Tolerated Well Tolerated Well -Offloading No No -Debridement - Subq, 1st 20sq cm No Yes -Apply Skin Sub - 1st 25 sq cm - Feet 1 -Epifix 18mm Disc 3 Pain Scale: 0-10 Numeric Is Patient Pain Free? Yes Yes WC - Nurse 3 - General Ulcer D/C NN Start: 06/16/22 09:06 Freq: Status: Active Protocol: Activity Type Activity Date Activity User E-sign Co-sign Detail Recorded Client Recorded Date Recorded By Document 06/16/22 10:17 KR [id number] 06/16/22 10:18 KR Document 06/23/22 11:26 KR [id number] 06/23/22 11:26 KR Document 06/30/22 11:24 MW [id number] 06/30/22 11:25 MW Document 07/07/22 11:53 KR [id number] 07/07/22 11:53 KR Document 07/14/22 11:17 MW [id number] 07/14/22 11:18 MW Edit Result 07/14/22 11:17 MW (1) [id number] 07/14/22 11:27 MW (1) #10 L PLANTAR - Promogran 1 => 2 06/16/22 06/23/22 06/30/22 10:17 11:26 11:24 Wound Care Nurse 3 #9 Left 2nd toe -Primary Dressing Applied Aquacel Extra -Primary Dressing Covered/Secured with Dry Gauze,Dry Gauze & Roll Gauze,Secured with Tape -Aquacel Extra 1 #10 L PLANTAR -Ulcer Cleansing Not Cleansed -Foul Odor after Cleansing No -Negative Pressure Wound Therapy N/A -Primary Dressing Applied Aquacel AG 4x4 Aquacel Extra -Other Dressing ABD, STASIS PAD -Primary Dressing Covered/Secured with Dry Gauze, Dry Gauze,Dry Dry Gauze & Secured with Gauze & Roll Roll Gauze, Tape Gauze,Secured Secured with with Tape Tape -Aquacel Extra 1 -Aquacel AG 4x4 1 -Promogran Treatment Response Procedure Tolerated Well Pain Scale: 0-10 Numeric Is Patient Pain Free? Yes Yes Yes Teaching: Wound Center Dressing Your Wound -Person Taught -Teaching Method -Response to teaching WC - Visit Discharge Discharge Condition Stable Stable Stable Ambulatory Status Ambulatory Ambulatory Ambulatory Transportation Network [employer] Auto Accompanied by SELF Medication Reconcilliation completed & No provided to patient/care provider Clinical Summary of Care Provided Yes 07/07/22 07/14/22 11:53 11:17 Wound Care Nurse 3 #9 Left 2nd toe -Primary Dressing Applied -Primary Dressing Covered/Secured with -Aquacel Extra #10 L PLANTAR -Ulcer Cleansing Rinsed/ Rinsed/ Irrigated with Irrigated with Saline Saline -Foul Odor after Cleansing No No -Negative Pressure Wound Therapy N/A N/A -Primary Dressing Applied Aquacel Extra NonAdherent Contact Layer, Promogran -Other Dressing ABD -Primary Dressing Covered/Secured with Dry Gauze & Dry Gauze & Roll Gauze, Roll Gauze, Secured with Secured with Tape Tape -Aquacel Extra 1 -Aquacel AG 4x4 -Promogran 2 Treatment Response Procedure Tolerated Well Pain Scale: 0-10 Numeric Is Patient Pain Free? 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 (2) Decubitus ulcer limited to breakdown of skin (stage 2): CODE(S): L89.92 - Pressure ulcer of unspecified site, stage 2 QUALIFIERS: Pressure injury location: toe Laterality: left Qualified Code(s): L89.892 - Pressure ulcer of other site, stage 2 PLAN: Wash foot with antibacterial soap pat dry apply the Promogran to wound base with Adaptic over top gauze and tape offload is much as possible follow-up in 1 week
== END 2022-07-14 23:59 | disposition home or self-care (01) ==
LOC: WC 10:45
PROVIDERS: PCP Family Medicine; Visit Provider Nurse Practitioner
DX: L97.526 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 involvement without evidence of necrosis (principal); E08.621 Diabetes mellitus due to underlying condition with foot ulcer; L89.892 Pressure ulcer of other site, stage 2
CPT/HCPCS: 11042; 15275; 87070; 87075; 87077; 87186; 87205; Q4186

== ENCOUNTER → 2022-07-16 | Outpatient (CLI) | payer MEDICARE, OTHER, SELFPAY ==
[2022-07-16 09:13] VITALS: BP 123/75; PULSE 64; RESP 16; TEMP 35.8; O2SAT 99; BMI 29.6
[2022-07-16] MEDS: DiphenhydrAMINE 50 MG/ML Syringe 12.5 MG IV (09:23)
== END | disposition home or self-care (01) ==
LOC: MEDOUTP 09:02
PROVIDERS: PCP Family Medicine; Referring Provider Family Medicine; Visit Provider Family Medicine
DX: L40.52 Psoriatic arthritis mutilans (principal); L40.3 Pustulosis palmaris et plantaris; L85.3 Xerosis cutis; M50.90 Cervical disc disorder, unspecified, unspecified cervical region; M17.0 Bilateral primary osteoarthritis of knee; L21.9 Seborrheic dermatitis, unspecified; Z79.899 Other long term (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; Z79.1 Long term (current) use of non-steroidal anti-inflammatories (NSAID)
CPT/HCPCS: 96415; 96413; J7050; A4216; Q5103

== ENCOUNTER 2022-08-11 10:15 | Outpatient (RCR) | payer MEDICARE, OTHER, SELFPAY ==
[2022-07-15 00:35] VITALS: BP 121/71; PULSE 70; RESP 16; TEMP 36.4
[2022-07-21 11:23] VITALS: BP 148/64; PULSE 72; TEMP 36.4
--- NOTE | 2022-07-21 13:07 | PN.PCM_ITS ---
History of Present Illness Date of Service: 07/21/22 Chief Complaint: Follow-up on right fifth toe plantar side left plantar great toe and left plantar second toe. History of Wound: 76-year-old white male with previous history of amputations of the toes. Appears with increase in wounds to the toes for the last 6 weeks at least. He has been seen by his own childcare attendant Dr. Nguyen and he referred him to here. He is currently using Aquacel to his wounds. His usually helps with dressing changes without a problem. Progress of Wound: The plantar wound is measuring smaller did fine anaerobes and will start him on metronidazole also with his other antibiotic. Surrounding skin of the wound is in good condition and supple Subjective Subjective Patient is without complaints Objective Data Objective Data Patient developed anaerobes in the wound also and will be started on metronidazole which should help with a lot with healing. Tolerating treatment well Vital Signs: Vital Signs Temp Pulse Resp BP 97.5 F L 72 16 148/64 H 07/21/22 11:23 07/21/22 11:23 07/15/22 00:35 07/21/22 11:23 Physical Exam Const oriented x3 General Appearance: cooperative Exam Limitations: no limitations Resp normal respiratory effort Effort and Inspection: able to speak in complete sentences Auscultation: clear to auscultation bilaterally Cardio regular rate and regular rhythm Palpation: normal PMI Rate: regular rate Rhythm: regular rhythm GI Auscultation: normoactive bowel sounds Palpation: soft and no hepatosplenomegaly Extremity normal to inspection General Extremity: normal exam except as noted Skin no rashes or lesions noted Wound Narrative: Open wounds with callus around on the right fifth toe plantar left second toe plantar and left great toe plantar with all with open wounds also. Neuro oriented x3 Psych Appearance: grossly normal Speech: normal speech Thought Content: normal thought content Judgement: judgement good Debridement Note Debridement Note Post-Debridement Measurements and Additional Note: Post-Debridement Measurements/Treatment JONNY - Nurse 1 - General Ulcer Assessment Start: 07/21/22 11:22 Freq: Status: Active Protocol: REMA Activity Type Activity Date Activity User E-sign Co-sign Detail Recorded Client Recorded Date Recorded By Document 07/21/22 11:23 NEEMA [id number] 07/21/22 11:26 NEEMA 07/21/22 11:23 - Today's Visit Information Type of service Follow-up Visit (Physician/INFANT LEAD TEACHER ) Arrival Mode Ambulatory Patient Identification Verified (Name & Yes ) Vital Signs Temperature (97.8 F-99.1 F) 97.5 F L Temperature Source Temporal Pulse Rate (60-100) 72 Pulse Location Monitor Blood Pressure (90/60-120/80) 148/64 H Blood Pressure Mean (mm Hg) 92 Source Monitor Position Sitting Blood Pressure Location Right Arm History Since Last Visit- (Skip if this is Patient's initial visit) Have you changed medications since your No last visit? Any new allergies or adverse reactions No Had a fall/change in ADL's that may No increase risk of falls Signs or symptoms of abuse and/or No neglect since last visit Have you been in the hospital since your No last visit? Has dressing in place as prescribed Yes Has compression in place as prescribed N/A Has offloadiing in place as prescribed N/A Experienced any changes in pain level or No management Left Footwear Regular Shoe Right Footwear Regular Shoe Pain Scale: 0-10 Numeric Is Patient Pain Free? Yes - Nurse 1 - General Ulcer Measurement Start: 07/21/22 11:22 Freq: Status: Active Protocol: Activity Type Activity Date Activity User E-sign Co-sign Detail Recorded Client Recorded Date Recorded By Document 07/21/22 11:23 NEEMA [id number] 07/21/22 11:26 NEEMA 07/21/22 11:23 Wound Center Nurse 1 #10 L PLANTAR -Current Size (cm) - Length 0.6 -Current Size (cm) - Width 1 -Current Size (cm) - Depth 0.2 -Total Square Cm 0.6 -Exudate Amt Small -Exudate Type Serosanguineous -Wound Margin Distinct, Outline Attached -Granulation Amt Medium (34-66%) -Granulation Quality Viking -Necrosis Amt Small (1-33%) -Necrotic Tissue Type Adherent Slough -Texture (Angie-wound Skin Appearance) Assessed, Scarring -Moisture (Angie-wound Skin Appearance) No Abnormality, Assessed -Color (Angie-wound Skin Appearance) No Abnormality, Assessed -Tenderness on Palpation (Angie-wound No Skin Appearance) -Ulcer Cleansing Rinsed/ Irrigated with Saline -Foul Odor after Cleansing No -Anesthetic Used 5% Lidocaine Gel - Nurse 2 - General Ulcer CM Notes Start: 07/21/22 11:22 Freq: Status: Active Protocol: Activity Type Activity Date Activity User E-sign Co-sign Detail Recorded Client Recorded Date Recorded By Document 07/21/22 11:32 MW [id number] 07/21/22 11:35 MW 07/21/22 11:32 Wound Center Nurse 2 -Time 11:32 -Correct Patient Yes -Correct Side, Site, Position Yes -Correct Procedure Yes -Procedure Performed Yes -Type of Procedure Debridement -Clinical Debridement Subcutaneous -Tissue Removed Subcutaneous -Post Debridement (cm) - Length 0.8 -Post Debridement (cm) - Width 1.0 -Post Debridement (cm) - Depth 0.2 -Total Square (Post) (cm) 0.80 -Area of Debridement (cm) - Length 0.8 -Area of Debridement (cm) - Width 1.0 -Total Square (Area) (cm) 0.80 -Tunneling No -Undermining/Tunneling No -Circular Undermining No -Wound/Ulcer Outcome Not Healed -Ulcer Cleansing Rinsed/ Irrigated with Saline -Foul Odor after Cleansing No -Bioengineered Tissue No -Bleeding Controlled with Pressure -Treatment Response Procedure Tolerated Well -Debridement - Subq, 1st 20sq cm Yes Pain Scale: 0-10 Numeric Is Patient Pain Free? Yes - Nurse 3 - General Ulcer D/C NN Start: 07/21/22 11:22 Freq: Status: Active Protocol: Activity Type Activity Date Activity User E-sign Co-sign Detail Recorded Client Recorded Date Recorded By Document 07/21/22 11:47 MW [id number] 07/21/22 11:47 MW 07/21/22 11:47 Wound Care Nurse 3 #10 L PLANTAR -Ulcer Cleansing Rinsed/ Irrigated with Saline -Foul Odor after Cleansing No -Negative Pressure Wound Therapy N/A -Primary Dressing Applied NonAdherent Contact Layer, Promogran -Primary Dressing Covered/Secured with Dry Gauze & Roll Gauze, Secured with Tape -Promogran 1 Treatment Response Procedure Tolerated Well Pain Scale: 0-10 Numeric Is Patient Pain Free? 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
[2022-07-28 09:50] VITALS: BP 163/94; PULSE 84; RESP 16; TEMP 36.3
--- NOTE | 2022-07-28 12:44 | PCM.WC.PN ---
History of Present Illness Date of Service: 07/28/22 Chief Complaint: Follow-up on right fifth toe plantar side left plantar great toe and left plantar second toe. History of Wound: 76-year-old white male with previous history of amputations of the toes. Appears with increase in wounds to the toes for the last 6 weeks at least. He has been seen by his own instant potato processing supervisor Dr. Nguyen and he referred him to here. He is currently using Aquacel to his wounds. His usually helps with dressing changes without a problem. Progress of Wound: The plantar wound is measuring smaller did fine anaerobes and he is on metronidazole also with his other antibiotic. Surrounding skin of the wound is in good condition and supple Subjective Subjective Patient is pleased with outcomes Objective Data Objective Data Still developing a heavy callus around the wound that was debrided with nippers today tolerated well Vital Signs: Vital Signs Temp Pulse Resp BP O2 Del Method 97.3 F L 84 16 163/94 H Room Air 07/28/22 09:50 07/28/22 09:50 07/28/22 09:50 07/28/22 09:50 07/28/22 09:50 Oxygen Delivery Method Room Air Debridement Note Debridement Note Wound debrided: Left plantar wound Laterality: Left Type of Debridement: Excisional debridement Anesthesia Used: 5% Lidocaine Gel Depth: in the subcutaneous layer Percentage of wound debrided: 100 Instrument Used: 7mm curette, #15 blade and - (Nippers) Tissue Removed: Callus fibrin Severity: Fat Layer Exposed Amount of bleeding with debridement: Mild Bleeding Controlled with: Compression and gauze Patient tolerated procedure: Patient tolerated procedure well Post-Debridement Measurements and Additional Note: Post-Debridement Measurements/Treatment - Nurse 1 - General Ulcer Assessment Start: 07/21/22 11:22 Freq: Status: Active Protocol: REMA Activity Type Activity Date Activity User E-sign Co-sign Detail Recorded Client Recorded Date Recorded By Document 07/21/22 11:23 NEEMA [id number] 07/21/22 11:26 KR Document 07/28/22 09:50 [facility] [id number] 07/28/22 09:57 BMF 07/21/22 07/28/22 11:23 09:50 - Today's Visit Information Type of service Follow-up Visit Follow-up Visit (Physician/CLINICAL PROGRAM COORDINATOR (Physician/CLINICAL PROGRAM COORDINATOR ) ) Arrival Mode Ambulatory Ambulatory Transfer Assistance None Patient Identification Verified (Name & Yes Yes ) Patient Requires Transmission-Based No Precautions Vital Signs Temperature (97.8 F-99.1 F) 97.5 F L 97.3 F L Temperature Source Temporal Temporal Pulse Rate (60-100) 72 84 Pulse Location Monitor Monitor Respiratory Rate (12-18) 16 Respiratory rate source Observation Oxygen Delivery Method Room Air Blood Pressure (90/60-120/80) 148/64 H 163/94 H Blood Pressure Mean (mm Hg) 92 117 Source Monitor Monitor Position Sitting Sitting Blood Pressure Location Right Arm Right Arm History Since Last Visit- (Skip if this is Patient's initial visit) Have you changed medications since your No No last visit? Any new allergies or adverse reactions No No Had a fall/change in ADL's that may No No increase risk of falls Signs or symptoms of abuse and/or No No neglect since last visit Have you been in the hospital since your No No last visit? Has dressing in place as prescribed Yes Yes Has compression in place as prescribed N/A N/A Has offloadiing in place as prescribed N/A Yes Experienced any changes in pain level or No No management Left Footwear Regular Shoe Removable Cast Walker/Walking Boot Right Footwear Regular Shoe Diabetic Shoe Pain Scale: 0-10 Numeric Is Patient Pain Free? Yes Yes WC - Nurse 1 - General Ulcer Measurement Start: 07/21/22 11:22 Freq: Status: Active Protocol: Activity Type Activity Date Activity User E-sign Co-sign Detail Recorded Client Recorded Date Recorded By Document 07/21/22 11:23 [id number] 07/21/22 11:26 KR Document 07/28/22 09:50 [facility] [id number] 07/28/22 09:57 [facility] 07/21/22 07/28/22 11:23 09:50 Wound Center Nurse 1 #10 L PLANTAR -Combined with other wound No -Current Size (cm) - Length 0.6 0.6 -Current Size (cm) - Width 1 0.9 -Current Size (cm) - Depth 0.2 0.3 -Total Square Cm 0.6 0.54 -Date of Last Picture (Recall this 07/28/22 field) -Photo Taken Yes -Epithelialization None Present -Tunneling No -Undermining/Tunneling No -Circular Undermining No -Exudate Amt Small Small -Exudate Type Serosanguineous Serosanguineous -Wound Margin Distinct, Distinct, Outline Outline Attached Attached -Granulation Amt Medium (34-66%) Medium (34-66%) -Granulation Quality Luther Red -Slough/Fibrin Yes -Necrosis Amt Small (1-33%) Small (1-33%) -Necrotic Tissue Type Adherent Slough Adherent Slough -Texture (Angie-wound Skin Appearance) Assessed, Assessed,Callus Scarring ,Scarring -Moisture (Angie-wound Skin Appearance) No Abnormality, Assessed,Dry/ Assessed Scaly -Color (Angie-wound Skin Appearance) No Abnormality, Assessed Assessed -Temperature (Angie-wound Skin No Abnormality Appearance) (Pt Warm) -Tenderness on Palpation (Angie-wound No No Skin Appearance) -Ulcer Cleansing Rinsed/ Rinsed/ Irrigated with Irrigated with Saline Saline -Foul Odor after Cleansing No No -Anesthetic Used 5% Lidocaine 5% Lidocaine Gel Gel WC - Nurse 2 - General Ulcer CM Notes Start: 07/21/22 11:22 Freq: Status: Active Protocol: Activity Type Activity Date Activity User E-sign Co-sign Detail Recorded Client Recorded Date Recorded By Document 07/21/22 11:32 MW [id number] 07/21/22 11:35 MW Document 07/28/22 10:13 MW [id number] 07/28/22 10:17 MW 07/21/22 07/28/22 11:32 10:13 Wound Center Nurse 2 #10 L PLANTAR -Time 11:32 10:13 -Correct Patient Yes Yes -Correct Side, Site, Position Yes Yes -Correct Procedure Yes Yes -Procedure Performed Yes Yes -Type of Procedure Debridement Debridement -Clinical Debridement Subcutaneous Subcutaneous -Tissue Removed Subcutaneous Subcutaneous -Post Debridement (cm) - Length 0.8 0.7 -Post Debridement (cm) - Width 1.0 1.0 -Post Debridement (cm) - Depth 0.2 0.2 -Total Square (Post) (cm) 0.80 0.70 -Area of Debridement (cm) - Length 0.8 0.7 -Area of Debridement (cm) - Width 1.0 1.0 -Total Square (Area) (cm) 0.80 0.70 -Tunneling No No -Undermining/Tunneling No No -Circular Undermining No No -Wound/Ulcer Outcome Not Healed Not Healed -Ulcer Cleansing Rinsed/ Rinsed/ Irrigated with Irrigated with Saline Saline -Foul Odor after Cleansing No No -Bioengineered Tissue No No -Bleeding Controlled with Pressure Pressure -Treatment Response Procedure Procedure Tolerated Well Tolerated Well -Offloading No -Debridement - Subq, 1st 20sq cm Yes Yes Pain Scale: 0-10 Numeric Is Patient Pain Free? Yes Yes - Nurse 3 - General Ulcer D/C NN Start: 07/21/22 11:22 Freq: Status: Active Protocol: Activity Type Activity Date Activity User E-sign Co-sign Detail Recorded Client Recorded Date Recorded By Document 07/21/22 11:47 MW [id number] 07/21/22 11:47 MW Document 07/28/22 10:37 DL [id number] 07/28/22 10:38 DL 07/21/22 07/28/22 11:47 10:37 Wound Care Nurse 3 #10 L PLANTAR -Ulcer Cleansing Rinsed/ Irrigated with Saline -Foul Odor after Cleansing No -Negative Pressure Wound Therapy N/A -Primary Dressing Applied NonAdherent NonAdherent Contact Layer, Contact Layer, Promogran Promogran -Other Dressing stasis pad -Primary Dressing Covered/Secured with Dry Gauze & Dry Gauze & Roll Gauze, Roll Gauze, Secured with Secured with Tape Tape -Promogran 1 1 Treatment Response Procedure Tolerated Well Pain Scale: 0-10 Numeric Is Patient Pain Free? 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 (2) Decubitus ulcer limited to breakdown of skin (stage 2): CODE(S): L89.92 - Pressure ulcer of unspecified site, stage 2 QUALIFIERS: Pressure injury location: toe Laterality: left Qualified Code(s): L89.892 - Pressure ulcer of other site, stage 2 PLAN: Wash foot with antibacterial soap pat dry apply the Promogran to wound base with Adaptic over top gauze and tape offload is much as possible follow-up in 1 week Finish metronidazole also as an antimicrobial for the anaerobes
[2022-08-04 10:21] VITALS: BP 136/82; PULSE 74; RESP 16; TEMP 36.3
--- NOTE | 2022-08-04 11:57 | PN.PCM_ITS ---
History of Present Illness Date of Service: 08/04/22 Chief Complaint: Follow-up on right fifth toe plantar side left plantar great toe and left plantar second toe. History of Wound: 76-year-old white male with previous history of amputations of the toes. Appears with increase in wounds to the toes for the last 6 weeks at least. He has been seen by his own ballaster Dr. Nguyen and he referred him to here. He is currently using Aquacel to his wounds. His usually helps with dressing changes without a problem. Progress of Wound: The plantar wound is measuring smaller Surrounding skin of the wound is in good condition and supple Subjective Subjective Patient and are happy with outcome Objective Data Objective Data Wound is measuring same but shallower no sign of infection doing well. Continue using Promogran Vital Signs: Vital Signs Temp Pulse Resp BP O2 Del Method 97.3 F L 74 16 136/82 H Room Air 08/04/22 10:21 08/04/22 10:21 08/04/22 10:21 08/04/22 10:21 08/04/22 10:21 Oxygen Delivery Method Room Air Physical Exam Const oriented x3 General Appearance: cooperative Exam Limitations: no limitations Resp normal respiratory effort Effort and Inspection: able to speak in complete sentences Auscultation: clear to auscultation bilaterally Cardio regular rate and regular rhythm Palpation: normal PMI Rate: regular rate Rhythm: regular rhythm GI Auscultation: normoactive bowel sounds Palpation: soft and no hepatosplenomegaly Extremity normal to inspection General Extremity: normal exam except as noted Skin no rashes or lesions noted Wound Narrative: Open wounds with callus around on the right fifth toe plantar left second toe plantar and left great toe plantar with all with open wounds also. Neuro oriented x3 Psych Appearance: grossly normal Speech: normal speech Thought Content: normal thought content Judgement: judgement good Debridement Note Debridement Note Wound debrided: Left plantar foot Laterality: Left Wound Grade/Stage: Stage II Type of Debridement: Excisional debridement Anesthesia Used: 5% Lidocaine Gel Depth: in the subcutaneous layer Percentage of wound debrided: 100 Instrument Used: 5mm curette Tissue Removed: Fibrin and callus Severity: Fat Layer Exposed Amount of bleeding with debridement: Mild Bleeding Controlled with: Compression and gauze Patient tolerated procedure: Patient tolerated procedure well Post-Debridement Measurements and Additional Note: Post-Debridement Measurements/Treatment WC - Nurse 1 - General Ulcer Assessment Start: 07/21/22 11:22 Freq: Status: Active Protocol: WC.LOWEXT Activity Type Activity Date Activity User E-sign Co-sign Detail Recorded Client Recorded Date Recorded By Document 07/21/22 11:23 KR [id number] 07/21/22 11:26 KR Document 07/28/22 09:50 [facility] [id number] 07/28/22 09:57 [facility] Document 08/04/22 10:21 [facility] [id number] 08/04/22 10:28 BMF 07/21/22 07/28/22 08/04/22 11:23 09:50 10:21 - Today's Visit Information Type of service Follow-up Visit Follow-up Visit Follow-up Visit (Physician/FRONT DESK REPRESENTATIVE (Physician/FRONT DESK REPRESENTATIVE (Physician/FRONT DESK REPRESENTATIVE ) ) ) Arrival Mode Ambulatory Ambulatory Ambulatory Transfer Assistance None None Patient Identification Verified (Name & Yes Yes Yes ) Patient Requires Transmission-Based No No Precautions Vital Signs Temperature (97.8 F-99.1 F) 97.5 F L 97.3 F L 97.3 F L Temperature Source Temporal Temporal Temporal Pulse Rate (60-100) 72 84 74 Pulse Location Monitor Monitor Monitor Respiratory Rate (12-18) 16 16 Respiratory rate source Observation Observation Oxygen Delivery Method Room Air Room Air Blood Pressure (90/60-120/80) 148/64 H 163/94 H 136/82 H Blood Pressure Mean (mm Hg) 92 117 100 Source Monitor Monitor Monitor Position Sitting Sitting Sitting Blood Pressure Location Right Arm Right Arm Left Arm History Since Last Visit- (Skip if this is Patient's initial visit) Have you changed medications since your No No No last visit? Any new allergies or adverse reactions No No No Had a fall/change in ADL's that may No No No increase risk of falls Signs or symptoms of abuse and/or No No No neglect since last visit Have you been in the hospital since your No No No last visit? Has dressing in place as prescribed Yes Yes Yes Has compression in place as prescribed N/A N/A N/A Has offloadiing in place as prescribed N/A Yes Yes Experienced any changes in pain level or No No No management Left Footwear Regular Shoe Removable Cast Removable Cast Walker/Walking Walker/Walking Boot Boot Right Footwear Regular Shoe Diabetic Shoe Diabetic Shoe Pain Scale: 0-10 Numeric Is Patient Pain Free? Yes Yes Yes WC - Nurse 1 - General Ulcer Measurement Start: 07/21/22 11:22 Freq: Status: Active Protocol: Activity Type Activity Date Activity User E-sign Co-sign Detail Recorded Client Recorded Date Recorded By Document 07/21/22 11:23 KR [id number] 07/21/22 11:26 KR Document 07/28/22 09:50 BMF [id number] 07/28/22 09:57 BMF Document 08/04/22 10:21 BM [id number] 08/04/22 10:28 BMF 07/21/22 07/28/22 08/04/22 11:23 09:50 10:21 Wound Center Nurse 1 #10 L PLANTAR -Combined with other wound No No -Current Size (cm) - Length 0.6 0.6 0.7 -Current Size (cm) - Width 1 0.9 1 -Current Size (cm) - Depth 0.2 0.3 0.3 -Total Square Cm 0.6 0.54 0.7 -Date of Last Picture (Recall this 07/28/22 08/04/22 field) -Photo Taken Yes Yes -Epithelialization None Present Small 1-33% -Tunneling No No -Undermining/Tunneling No No -Circular Undermining No No -Exudate Amt Small Small Small -Exudate Type Serosanguineous Serosanguineous Serosanguineous -Wound Margin Distinct, Distinct, Distinct, Outline Outline Outline Attached Attached Attached -Granulation Amt Medium (34-66%) Medium (34-66%) Large (67-100%) -Granulation Quality [place] Red Red -Slough/Fibrin Yes Yes -Necrosis Amt Small (1-33%) Small (1-33%) Small (1-33%) -Necrotic Tissue Type Adherent Slough Adherent Slough Adherent Slough -Texture (Angie-wound Skin Appearance) Assessed, Assessed,Callus Assessed, Scarring ,Scarring Scarring -Moisture (Angie-wound Skin Appearance) No Abnormality, Assessed,Dry/ Assessed Assessed Scaly -Color (Angie-wound Skin Appearance) No Abnormality, Assessed Assessed Assessed -Temperature (Angie-wound Skin No Abnormality No Abnormality Appearance) (Pt Warm) (Pt Warm) -Tenderness on Palpation (Angie-wound No No No Skin Appearance) -Ulcer Cleansing Rinsed/ Rinsed/ Rinsed/ Irrigated with Irrigated with Irrigated with Saline Saline Saline -Foul Odor after Cleansing No No No -Anesthetic Used 5% Lidocaine 5% Lidocaine 5% Lidocaine Gel Gel Gel WC - Nurse 2 - General Ulcer CM Notes Start: 07/21/22 11:22 Freq: Status: Active Protocol: Activity Type Activity Date Activity User E-sign Co-sign Detail Recorded Client Recorded Date Recorded By Document 07/21/22 11:32 MW [id number] 07/21/22 11:35 MW Document 07/28/22 10:13 [id number] 07/28/22 10:17 MW Document 08/04/22 10:40 MW [id number] 08/04/22 10:42 MW 07/21/22 07/28/22 08/04/22 11:32 10:13 10:40 Wound Center Nurse 2 #10 L PLANTAR -Time 11:32 10:13 10:40 -Correct Patient Yes Yes Yes -Correct Side, Site, Position Yes Yes Yes -Correct Procedure Yes Yes Yes -Procedure Performed Yes Yes Yes -Type of Procedure Debridement Debridement Debridement -Clinical Debridement Subcutaneous Subcutaneous Subcutaneous -Tissue Removed Subcutaneous Subcutaneous Subcutaneous -Post Debridement (cm) - Length 0.8 0.7 0.8 -Post Debridement (cm) - Width 1.0 1.0 1.0 -Post Debridement (cm) - Depth 0.2 0.2 0.2 -Total Square (Post) (cm) 0.80 0.70 0.80 -Area of Debridement (cm) - Length 0.8 0.7 0.8 -Area of Debridement (cm) - Width 1.0 1.0 1.0 -Total Square (Area) (cm) 0.80 0.70 0.80 -Tunneling No No No -Undermining/Tunneling No No No -Circular Undermining No No No -Wound/Ulcer Outcome Not Healed Not Healed Not Healed -Ulcer Cleansing Rinsed/ Rinsed/ Rinsed/ Irrigated with Irrigated with Irrigated with Saline Saline Saline -Foul Odor after Cleansing No No No -Bioengineered Tissue No No No -Bleeding Controlled with Pressure Pressure Pressure -Treatment Response Procedure Procedure Procedure Not Tolerated Well Tolerated Well Tolerated Well -Offloading No No -Debridement - Subq, 1st 20sq cm Yes Yes Yes Pain Scale: 0-10 Numeric Is Patient Pain Free? Yes Yes Yes - Nurse 3 - General Ulcer D/C NN Start: 07/21/22 11:22 Freq: Status: Active Protocol: Activity Type Activity Date Activity User E-sign Co-sign Detail Recorded Client Recorded Date Recorded By Document 07/21/22 11:47 MW [id number] 07/21/22 11:47 MW Document 07/28/22 10:37 DL [id number] 07/28/22 10:38 DL 07/21/22 07/28/22 11:47 10:37 Wound Care Nurse 3 #10 L PLANTAR -Ulcer Cleansing Rinsed/ Irrigated with Saline -Foul Odor after Cleansing No -Negative Pressure Wound Therapy N/A -Primary Dressing Applied NonAdherent NonAdherent Contact Layer, Contact Layer, Promogran Promogran -Other Dressing stasis pad -Primary Dressing Covered/Secured with Dry Gauze & Dry Gauze & Roll Gauze, Roll Gauze, Secured with Secured with Tape Tape -Promogran 1 1 Treatment Response Procedure Tolerated Well Pain Scale: 0-10 Numeric Is Patient Pain Free? 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 (2) Decubitus ulcer limited to breakdown of skin (stage 2): CODE(S): L89.92 - Pressure ulcer of unspecified site, stage 2 QUALIFIERS: Pressure injury location: toe Laterality: left Qualified Code(s): L89.892 - Pressure ulcer of other site, stage 2 PLAN: Wash foot with antibacterial soap pat dry apply the Promogran to wound base with Adaptic over top gauze and tape offload is much as possible follow-up in 1 week
[2022-08-11 10:27] VITALS: BP 131/77; PULSE 74; RESP 16; TEMP 35.5
--- NOTE | 2022-08-11 10:57 | PCM.WC.PN ---
History of Present Illness Date of Service: 08/11/22 Chief Complaint: Follow-up on right fifth toe plantar side left plantar great toe and left plantar second toe. History of Wound: 76-year-old white male with previous history of amputations of the toes. Appears with increase in wounds to the toes for the last 6 weeks at least. He has been seen by his own wallpaper cleaner Dr. Nguyen and he referred him to here. He is currently using Aquacel to his wounds. His usually helps with dressing changes without a problem. Progress of Wound: The plantar wound is measuring smaller Surrounding skin of the wound is in good condition and supple Subjective Subjective Patient is pleased with his care Objective Data Objective Data Looking smaller we will continue using the Promogran to base of wound and a stasis pad around the edge to stop the callusing. 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 Laterality: Left Type of Debridement: Excisional debridement Anesthesia Used: 5% Lidocaine Gel Depth: in the subcutaneous layer Percentage of wound debrided: 100 Instrument Used: 5mm curette Tissue Removed: Fibrin and callus Severity: Fat Layer Exposed Amount of bleeding with debridement: Mild Bleeding Controlled with: Compression and gauze Patient tolerated procedure: Patient tolerated procedure well Post-Debridement Measurements and Additional Note: Post-Debridement Measurements/Treatment - Nurse 1 - General Ulcer Assessment Start: 07/21/22 11:22 Freq: Status: Active Protocol: REMA Activity Type Activity Date Activity User E-sign Co-sign Detail Recorded Client Recorded Date Recorded By Document 07/21/22 11:23 [id number] 07/21/22 11:26 KR Document 07/28/22 09:50 [facility] [id number] 07/28/22 09:57 [facility] Document 08/04/22 10:21 [facility] [id number] 08/04/22 10:28 BMF Document 08/11/22 10:27 [place] [id number] 08/11/22 10:29 AK 07/21/22 07/28/22 08/04/22 11:23 09:50 10:21 - Today's Visit Information Type of service Follow-up Visit Follow-up Visit Follow-up Visit (Physician/JAVA DEVELOPMENT MANAGER (Physician/JAVA DEVELOPMENT MANAGER (Physician/JAVA DEVELOPMENT MANAGER ) ) ) Arrival Mode Ambulatory Ambulatory Ambulatory Transfer Assistance None None Patient Identification Verified (Name & Yes Yes Yes ) Patient Requires Transmission-Based No No Precautions Vital Signs Temperature (97.8 F-99.1 F) 97.5 F L 97.3 F L 97.3 F L Temperature Source Temporal Temporal Temporal Pulse Rate (60-100) 72 84 74 Pulse Location Monitor Monitor Monitor Respiratory Rate (12-18) 16 16 Respiratory rate source Observation Observation Oxygen Delivery Method Room Air Room Air Blood Pressure (90/60-120/80) 148/64 H 163/94 H 136/82 H Blood Pressure Mean (mm Hg) 92 117 100 Source Monitor Monitor Monitor Position Sitting Sitting Sitting Blood Pressure Location Right Arm Right Arm Left Arm History Since Last Visit- (Skip if this is Patient's initial visit) Have you changed medications since your No No No last visit? Any new allergies or adverse reactions No No No Had a fall/change in ADL's that may No No No increase risk of falls Signs or symptoms of abuse and/or No No No neglect since last visit Have you been in the hospital since your No No No last visit? Has dressing in place as prescribed Yes Yes Yes Has compression in place as prescribed N/A N/A N/A Has offloadiing in place as prescribed N/A Yes Yes Experienced any changes in pain level or No No No management Left Footwear Regular Shoe Removable Cast Removable Cast Walker/Walking Walker/Walking Boot Boot Right Footwear Regular Shoe Diabetic Shoe Diabetic Shoe Pain Scale: 0-10 Numeric Is Patient Pain Free? Yes Yes Yes 08/11/22 10:27 - Today's Visit Information Type of service Follow-up Visit (Physician/JAVA DEVELOPMENT MANAGER ) Arrival Mode Ambulatory Transfer Assistance None Patient Identification Verified (Name & Yes ) Patient Requires Transmission-Based No Precautions Vital Signs Temperature (97.8 F-99.1 F) 95.9 F L Temperature Source Temporal Pulse Rate (60-100) 74 Pulse Location Monitor Respiratory Rate (12-18) 16 Respiratory rate source Observation Oxygen Delivery Method Room Air Blood Pressure (90/60-120/80) 131/77 H Blood Pressure Mean (mm Hg) 95 Source Monitor Position Sitting Blood Pressure Location Right Arm History Since Last Visit- (Skip if this is Patient's initial visit) Have you changed medications since your No last visit? Any new allergies or adverse reactions No Had a fall/change in ADL's that may No increase risk of falls Signs or symptoms of abuse and/or No neglect since last visit Have you been in the hospital since your No last visit? Has dressing in place as prescribed Yes Has compression in place as prescribed N/A Has offloadiing in place as prescribed N/A Experienced any changes in pain level or No management Left Footwear Diabetic Shoe Right Footwear Diabetic Shoe Pain Scale: 0-10 Numeric Is Patient Pain Free? Yes WC - Nurse 1 - General Ulcer Measurement Start: 07/21/22 11:22 Freq: Status: Active Protocol: Activity Type Activity Date Activity User E-sign Co-sign Detail Recorded Client Recorded Date Recorded By Document 07/21/22 11:23 KR [id number] 07/21/22 11:26 KR Document 07/28/22 09:50 [facility] [id number] 07/28/22 09:57 [facility] Document 08/04/22 10:21 BMF [id number] 08/04/22 10:28 BMF Document 08/11/22 10:27 AK [id number] 08/11/22 10:29 AK 07/21/22 07/28/22 08/04/22 11:23 09:50 10:21 Wound Center Nurse 1 #10 L PLANTAR -Combined with other wound No No -Current Size (cm) - Length 0.6 0.6 0.7 -Current Size (cm) - Width 1 0.9 1 -Current Size (cm) - Depth 0.2 0.3 0.3 -Total Square Cm 0.6 0.54 0.7 -Date of Last Picture (Recall this 07/28/22 08/04/22 field) -Photo Taken Yes Yes -Epithelialization None Present Small 1-33% -Tunneling No No -Undermining/Tunneling No No -Circular Undermining No No -Exudate Amt Small Small Small -Exudate Type Serosanguineous Serosanguineous Serosanguineous -Wound Margin Distinct, Distinct, Distinct, Outline Outline Outline Attached Attached Attached -Granulation Amt Medium (34-66%) Medium (34-66%) Large (67-100%) -Granulation Quality [place] Red Red -Slough/Fibrin Yes Yes -Necrosis Amt Small (1-33%) Small (1-33%) Small (1-33%) -Necrotic Tissue Type Adherent Slough Adherent Slough Adherent Slough -Texture (Angie-wound Skin Appearance) Assessed, Assessed,Callus Assessed, Scarring ,Scarring Scarring -Moisture (Angie-wound Skin Appearance) No Abnormality, Assessed,Dry/ Assessed Assessed Scaly -Color (Angie-wound Skin Appearance) No Abnormality, Assessed Assessed Assessed -Temperature (Angie-wound Skin No Abnormality No Abnormality Appearance) (Pt Warm) (Pt Warm) -Tenderness on Palpation (Angie-wound No No No Skin Appearance) -Ulcer Cleansing Rinsed/ Rinsed/ Rinsed/ Irrigated with Irrigated with Irrigated with Saline Saline Saline -Foul Odor after Cleansing No No No -Anesthetic Used 5% Lidocaine 5% Lidocaine 5% Lidocaine Gel Gel Gel 08/11/22 10:27 Wound Center Nurse 1 #10 L PLANTAR -Combined with other wound No -Current Size (cm) - Length 0.5 -Current Size (cm) - Width 0.9 -Current Size (cm) - Depth 0.2 -Total Square Cm 0.45 -Date of Last Picture (Recall this field) -Photo Taken No -Epithelialization Small 1-33% -Tunneling No -Undermining/Tunneling No -Circular Undermining No -Exudate Amt Small -Exudate Type Serosanguineous -Wound Margin Distinct, Outline Attached -Granulation Amt Large (67-100%) -Granulation Quality Red -Slough/Fibrin No -Necrosis Amt None Present (0 %) -Necrotic Tissue Type -Texture (Angie-wound Skin Appearance) Assessed, Scarring -Moisture (Angie-wound Skin Appearance) Assessed,Dry/ Scaly -Color (Angie-wound Skin Appearance) Assessed -Temperature (Angie-wound Skin No Abnormality Appearance) (Pt Warm) -Tenderness on Palpation (Angie-wound No Skin Appearance) -Ulcer Cleansing Rinsed/ Irrigated with Saline -Foul Odor after Cleansing No -Anesthetic Used 5% Lidocaine Gel WC - Nurse 2 - General Ulcer CM Notes Start: 07/21/22 11:22 Freq: Status: Active Protocol: Activity Type Activity Date Activity User E-sign Co-sign Detail Recorded Client Recorded Date Recorded By Document 07/21/22 11:32 MW [id number] 07/21/22 11:35 MW Document 07/28/22 10:13 MW [id number] 07/28/22 10:17 MW Document 08/04/22 10:40 MW [id number] 08/04/22 10:42 MW Document 08/11/22 10:44 MW [id number] 08/11/22 10:46 MW 07/21/22 07/28/22 08/04/22 11:32 10:13 10:40 Wound Center Nurse 2 #10 L PLANTAR -Time 11:32 10:13 10:40 -Correct Patient Yes Yes Yes -Correct Side, Site, Position Yes Yes Yes -Correct Procedure Yes Yes Yes -Procedure Performed Yes Yes Yes -Type of Procedure Debridement Debridement Debridement -Clinical Debridement Subcutaneous Subcutaneous Subcutaneous -Tissue Removed Subcutaneous Subcutaneous Subcutaneous -Post Debridement (cm) - Length 0.8 0.7 0.8 -Post Debridement (cm) - Width 1.0 1.0 1.0 -Post Debridement (cm) - Depth 0.2 0.2 0.2 -Total Square (Post) (cm) 0.80 0.70 0.80 -Area of Debridement (cm) - Length 0.8 0.7 0.8 -Area of Debridement (cm) - Width 1.0 1.0 1.0 -Total Square (Area) (cm) 0.80 0.70 0.80 -Tunneling No No No -Undermining/Tunneling No No No -Circular Undermining No No No -Wound/Ulcer Outcome Not Healed Not Healed Not Healed -Ulcer Cleansing Rinsed/ Rinsed/ Rinsed/ Irrigated with Irrigated with Irrigated with Saline Saline Saline -Foul Odor after Cleansing No No No -Bioengineered Tissue No No No -Bleeding Controlled with Pressure Pressure Pressure -Treatment Response Procedure Procedure Procedure Not Tolerated Well Tolerated Well Tolerated Well -Offloading No No -Debridement - Subq, 1st 20sq cm Yes Yes Yes Pain Scale: 0-10 Numeric Is Patient Pain Free? Yes Yes Yes 08/11/22 10:44 Wound Center Nurse 2 #10 L PLANTAR -Time 10:44 -Correct Patient Yes -Correct Side, Site, Position Yes -Correct Procedure Yes -Procedure Performed Yes -Type of Procedure Debridement -Clinical Debridement Subcutaneous -Tissue Removed Subcutaneous -Post Debridement (cm) - Length 0.6 -Post Debridement (cm) - Width 0.9 -Post Debridement (cm) - Depth 0.1 -Total Square (Post) (cm) 0.54 -Area of Debridement (cm) - Length 0.6 -Area of Debridement (cm) - Width 0.9 -Total Square (Area) (cm) 0.54 -Tunneling No -Undermining/Tunneling No -Circular Undermining No -Wound/Ulcer Outcome -Ulcer Cleansing -Foul Odor after Cleansing No -Bioengineered Tissue No -Bleeding Controlled with Pressure -Treatment Response Procedure Tolerated Well -Offloading No -Debridement - Subq, 1st 20sq cm Yes Pain Scale: 0-10 Numeric Is Patient Pain Free? Yes - Nurse 3 - General Ulcer D/C NN Start: 07/21/22 11:22 Freq: Status: Active Protocol: Activity Type Activity Date Activity User E-sign Co-sign Detail Recorded Client Recorded Date Recorded By Document 07/21/22 11:47 MW [id number] 07/21/22 11:47 MW Document 07/28/22 10:37 DL [id number] 07/28/22 10:38 DL 07/21/22 07/28/22 11:47 10:37 Wound Care Nurse 3 #10 L PLANTAR -Ulcer Cleansing Rinsed/ Irrigated with Saline -Foul Odor after Cleansing No -Negative Pressure Wound Therapy N/A -Primary Dressing Applied NonAdherent NonAdherent Contact Layer, Contact Layer, Promogran Promogran -Other Dressing stasis pad -Primary Dressing Covered/Secured with Dry Gauze & Dry Gauze & Roll Gauze, Roll Gauze, Secured with Secured with Tape Tape -Promogran 1 1 Treatment Response Procedure Tolerated Well Pain Scale: 0-10 Numeric Is Patient Pain Free? 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 (2) Decubitus ulcer limited to breakdown of skin (stage 2): CODE(S): L89.92 - Pressure ulcer of unspecified site, stage 2 QUALIFIERS: Pressure injury location: toe Laterality: left Qualified Code(s): L89.892 - Pressure ulcer of other site, stage 2 PLAN: Wash foot with antibacterial soap pat dry apply the Promogran to wound base apply stasis pad under wound with Adaptic over top gauze and tape offload is much as possible follow-up in 1 week Apply stasis pad to second toe plantar side
== END 2022-08-13 23:59 | disposition home or self-care (01) ==
LOC: WC 10:15
PROVIDERS: PCP Family Medicine; Visit Provider Nurse Practitioner
DX: E11.621 Type 2 diabetes mellitus with foot ulcer (principal); L89.892 Pressure ulcer of other site, stage 2; Z89.429 Acquired absence of other toe(s), unspecified side
CPT/HCPCS: 11042

== ENCOUNTER 2022-08-23 11:46 | Outpatient (RCR) | payer MEDICARE, OTHER, SELFPAY ==
[2022-08-23 13:14] LABS: Erythrocyte Sedimentation Rate 5 mm/hr (0-20)
[2022-08-23 13:16] LABS: Absolute Lymphocyte Count 1.68 X10^3/uL (0.83-4.51); Absolute Neutrophil Count 4.3 X10^3/uL (2.0-7.7); Basophil# 0.04 X10^3/uL; Basophil% 0.5 % (0-1); Eosinophil# 0.54 X10^3/uL; Eosinophils% 7.2 % (0-5); Hematocrit 40.2 % (40-54); Hemoglobin 13.7 g/dL (13.0-16.5); Lymphocyte # 1.68 X10^3/ul (0.83-4.51); Lymphocyte % 22.5 % (19-41); Mean Corp Hgb Conc 34.1 g/dL (32-36); Mean Corpuscular Hgb 33.6 pg (27.0-32.0); Mean Corpuscular Volume 98.5 fL (80-94); Mean Platelet Vol. 10.9 fl (6.2-12.0); Monocyte# 0.83 X10^3/uL; Monocyte% 11.1 % (0-10); NRBC Flagged by Analyzer 0 % (0-5); Neutrophil # 4.33 X10^3/uL (2.7-7.7); Neutrophil % 58.2 % (47-70); Platelet Count 264 K/mm3 (150-450); RBC Distribution Width CV 13.6 % (11.6-14.6); RBC Distribution Width SD 48.3 fl (35.1-43.9); Red Blood Count 4.08 M/mm3 (4.6-6.2); White Blood Count 7.5 K/mm3 (4.4-11.0)
[2022-08-23 13:43] LABS: AST(SGOT) 28 U/L (15-37); Alanine Aminotransfer ALT/SGPT 47 U/L (16-61); CRP < 2.90 mg/L (0.0-3.0); Creatinine, Serum 1.29 mg/dL (0.70-1.30); EST Glomerular Filtration Rate 57 mL/min (>60); Est Glom Filt Rate - Afr Amer 69 mL/min (>60); Uric Acid 5.9 mg/dL (3.5-7.2)
== END 2022-09-13 18:00 | disposition home or self-care (01) ==
LOC: LAB 11:46
PROVIDERS: PCP Family Medicine; Referring Provider Internal Medicine Rheumatology; Visit Provider Internal Medicine Rheumatology
DX: L40.50 Arthropathic psoriasis, unspecified (principal); L40.52 Psoriatic arthritis mutilans; L40.3 Pustulosis palmaris et plantaris; L85.3 Xerosis cutis; L57.8 Other skin changes due to chronic exposure to nonionizing radiation; R79.82 Elevated C-reactive protein (CRP); M50.90 Cervical disc disorder, unspecified, unspecified cervical region; M17.0 Bilateral primary osteoarthritis of knee; L21.9 Seborrheic dermatitis, unspecified; L30.9 Dermatitis, unspecified; Z85.828 Personal history of other malignant neoplasm of skin; Z87.39 Personal history of other diseases of the musculoskeletal system and connective tissue; Z79.2 Long term (current) use of antibiotics; Z79.899 Other long term (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
CPT/HCPCS: 36415; 82565; 84450; 84460; 84550; 85025; 85652; 86140

== ENCOUNTER → 2022-08-27 | Outpatient (CLI) | payer MEDICARE, OTHER, SELFPAY ==
[2022-08-27 09:11] VITALS: BP 110/79; PULSE 78; TEMP 36.4; O2SAT 98
[2022-08-27] MEDS: DiphenhydrAMINE 50 MG/ML Syringe 12.5 MG IV (09:26)
== END | disposition home or self-care (01) ==
LOC: MEDOUTP 09:04
PROVIDERS: PCP Family Medicine; Referring Provider Family Medicine; Visit Provider Family Medicine
DX: L40.52 Psoriatic arthritis mutilans (principal); L40.3 Pustulosis palmaris et plantaris; L21.9 Seborrheic dermatitis, unspecified; M50.90 Cervical disc disorder, unspecified, unspecified cervical region; M17.0 Bilateral primary osteoarthritis of knee; Z79.899 Other long term (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
CPT/HCPCS: 96375; 96413; 96415; J7050; A4216; Q5103

== ENCOUNTER 2022-09-08 10:15 | Outpatient (RCR) | payer MEDICARE, OTHER, SELFPAY ==
[2022-08-14 01:25] VITALS: BP 131/77; PULSE 74; RESP 16; TEMP 35.5
[2022-08-18 10:06] VITALS: BP 128/75; PULSE 60; TEMP 36.4
--- NOTE | 2022-08-18 13:02 | PN.PCM_ITS ---
History of Present Illness Date of Service: 08/18/22 Chief Complaint: Follow-up on right fifth toe plantar side left plantar great toe and left plantar second toe. History of Wound: 76-year-old white male with previous history of amputations of the toes. Appears with increase in wounds to the toes for the last 6 weeks at least. He has been seen by his own exhibits coordinator Dr. Nguyen and he referred him to here. He is currently using Aquacel to his wounds. His usually helps with dressing changes without a problem. Progress of Wound: Wound is measuring smaller no sign of infection no odor still gets a callus around the edge. Subjective Subjective Patient is pleased with outcomes and no complaints from his Objective Data Objective Data Continue with same treatments seems to be doing well Vital Signs: Vital Signs Temp Pulse Resp BP 97.5 F L 60 16 128/75 H 08/18/22 10:06 08/18/22 10:06 08/14/22 01:25 08/18/22 10:06 Lab / Micro Data Attestation: I reviewed the patient's lab results. Physical Exam Const oriented x3 General Appearance: cooperative Exam Limitations: no limitations Resp normal respiratory effort Effort and Inspection: able to speak in complete sentences Auscultation: clear to auscultation bilaterally Cardio regular rate and regular rhythm Palpation: normal PMI Rate: regular rate Rhythm: regular rhythm GI Auscultation: normoactive bowel sounds Palpation: soft and no hepatosplenomegaly Extremity normal to inspection General Extremity: normal exam except as noted Skin no rashes or lesions noted Wound Narrative: Open wounds with callus around on the right fifth toe plantar left second toe plantar and left great toe plantar with all with open wounds also. Neuro oriented x3 Psych Appearance: grossly normal Speech: normal speech Thought Content: normal thought content Judgement: judgement good Debridement Note Debridement Note Wound debrided: Left plantar ulcer Laterality: Left Type of Debridement: Excisional debridement Anesthesia Used: 5% Lidocaine Gel Depth: in the subcutaneous layer Percentage of wound debrided: 100 Instrument Used: 7mm curette Tissue Removed: Callus and fibrin Severity: Fat Layer Exposed Amount of bleeding with debridement: Mild Bleeding Controlled with: Compression and gauze Patient tolerated procedure: Patient tolerated procedure well Post-Debridement Measurements and Additional Note: Post-Debridement Measurements/Treatment WC - Nurse 1 - General Ulcer Assessment Start: 08/18/22 10:05 Freq: Status: Active Protocol: REMA Activity Type Activity Date Activity User E-sign Co-sign Detail Recorded Client Recorded Date Recorded By Document 08/18/22 10:06 NEEMA [id number] 08/18/22 10:08 NEEMA 08/18/22 10:06 - Today's Visit Information Type of service Follow-up Visit (Physician/COMMUNITY MUSIC THERAPIST ) Arrival Mode Ambulatory Patient Identification Verified (Name & Yes ) Vital Signs Temperature (97.8 F-99.1 F) 97.5 F L Temperature Source Temporal Pulse Rate (60-100) 60 Pulse Location Monitor Blood Pressure (90/60-120/80) 128/75 H Blood Pressure Mean (mm Hg) 92 Source Monitor Position Semi-Fowlers Blood Pressure Location Right Arm History Since Last Visit- (Skip if this is Patient's initial visit) Have you changed medications since your No last visit? Any new allergies or adverse reactions No Had a fall/change in ADL's that may No increase risk of falls Signs or symptoms of abuse and/or No neglect since last visit Have you been in the hospital since your No last visit? Has dressing in place as prescribed Yes Has compression in place as prescribed N/A Has offloadiing in place as prescribed N/A Experienced any changes in pain level or No management Left Footwear Regular Shoe Right Footwear Regular Shoe Pain Scale: 0-10 Numeric Is Patient Pain Free? Yes - Nurse 1 - General Ulcer Measurement Start: 08/18/22 10:05 Freq: Status: Active Protocol: Activity Type Activity Date Activity User E-sign Co-sign Detail Recorded Client Recorded Date Recorded By Document 08/18/22 10:06 NEEMA [id number] 08/18/22 10:08 NEEMA 08/18/22 10:06 Wound Center Nurse 1 #10 L PLANTAR -Current Size (cm) - Length 0.4 -Current Size (cm) - Width 0.9 -Current Size (cm) - Depth 0.2 -Total Square Cm 0.36 -Wound Margin Distinct, Outline Attached -Granulation Amt Large (67-100%) -Granulation Quality [place] -Necrosis Amt None Present (0 %) -Texture (Angie-wound Skin Appearance) Assessed, Scarring -Moisture (Angie-wound Skin Appearance) No Abnormality, Assessed -Color (Angie-wound Skin Appearance) No Abnormality, Assessed -Temperature (Angie-wound Skin No Abnormality Appearance) (Pt Warm) -Tenderness on Palpation (Angie-wound No Skin Appearance) -Ulcer Cleansing Soap and Water -Foul Odor after Cleansing No -Anesthetic Used 5% Lidocaine Gel JONNY - Nurse 2 - General Ulcer CM Notes Start: 08/18/22 10:05 Freq: Status: Active Protocol: Activity Type Activity Date Activity User E-sign Co-sign Detail Recorded Client Recorded Date Recorded By Document 08/18/22 10:16 MW [id number] 08/18/22 10:23 MW 08/18/22 10:16 Wound Center Nurse 2 -Time 10:16 -Correct Patient Yes -Correct Side, Site, Position Yes -Correct Procedure Yes -Procedure Performed Yes -Type of Procedure Debridement -Clinical Debridement Subcutaneous -Tissue Removed Subcutaneous -Post Debridement (cm) - Length 0.6 -Post Debridement (cm) - Width 0.9 -Post Debridement (cm) - Depth 0.1 -Total Square (Post) (cm) 0.54 -Area of Debridement (cm) - Length 0.6 -Area of Debridement (cm) - Width 0.9 -Total Square (Area) (cm) 0.54 -Tunneling No -Undermining/Tunneling No -Circular Undermining No -Wound/Ulcer Outcome Not Healed -Ulcer Cleansing Rinsed/ Irrigated with Saline -Foul Odor after Cleansing No -Bioengineered Tissue No -Bleeding Controlled with Pressure -Treatment Response Procedure Tolerated Well -Offloading No -Debridement - Subq, 1st 20sq cm Yes Pain Scale: 0-10 Numeric Is Patient Pain Free? Yes WC - Nurse 3 - General Ulcer D/C NN Start: 08/18/22 10:05 Freq: Status: Active Protocol: Activity Type Activity Date Activity User E-sign Co-sign Detail Recorded Client Recorded Date Recorded By Document 08/18/22 12:06 AK [id number] 08/18/22 12:06 AK 08/18/22 12:06 Wound Care Nurse 3 #10 L PLANTAR -Ulcer Cleansing Rinsed/ Irrigated with Saline -Foul Odor after Cleansing No -Negative Pressure Wound Therapy N/A -Primary Dressing Applied NonAdherent Contact Layer, Promogran -Primary Dressing Covered/Secured with Dry Gauze & Roll Gauze, Secured with Tape -Promogran 1 Pain Scale: 0-10 Numeric Is Patient Pain Free? 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 (2) Decubitus ulcer limited to breakdown of skin (stage 2): CODE(S): L89.92 - Pressure ulcer of unspecified site, stage 2 QUALIFIERS: Pressure injury location: toe Laterality: left Qualified Code(s): L89.892 - Pressure ulcer of other site, stage 2 PLAN: Wash foot with antibacterial soap pat dry apply the Promogran to wound base apply stasis pad under wound with Adaptic over top gauze and tape offload is much as possible follow-up in 1 week Apply stasis pad to second toe plantar side
[2022-08-25 10:20] VITALS: BP 124/56; PULSE 54; RESP 16; TEMP 35.9
--- NOTE | 2022-08-25 11:47 | PCM.WC.PN ---
History of Present Illness Date of Service: 08/25/22 Chief Complaint: Follow-up on right fifth toe plantar side left plantar great toe and left plantar second toe. History of Wound: 76-year-old white male with previous history of amputations of the toes. Appears with increase in wounds to the toes for the last 6 weeks at least. He has been seen by his own nail galvanizer Dr. Nguyen and he referred him to here. He is currently using Aquacel to his wounds. His usually helps with dressing changes without a problem. Progress of Wound: Wound is measuring smaller no sign of infection no odor still gets a callus around the edge. Subjective Subjective Patient is happy with outcomes Objective Data Objective Data No sign of infection measure smaller we will follow-up in 2 weeks Vital Signs: Vital Signs Temp Pulse Resp BP O2 Del Method 96.7 F L 54 L 16 124/56 H Room Air 08/25/22 10:20 08/25/22 10:20 08/25/22 10:20 08/25/22 10:20 08/25/22 10:20 Oxygen Delivery Method Room Air Lab / Micro Data Attestation: I reviewed the patient's lab results. Physical Exam Const oriented x3 General Appearance: cooperative Exam Limitations: no limitations Resp normal respiratory effort Effort and Inspection: able to speak in complete sentences Auscultation: clear to auscultation bilaterally Cardio regular rate and regular rhythm Palpation: normal PMI Rate: regular rate Rhythm: regular rhythm GI Auscultation: normoactive bowel sounds Palpation: soft and no hepatosplenomegaly Extremity normal to inspection General Extremity: normal exam except as noted Skin no rashes or lesions noted Wound Narrative: Open wounds with callus around on the right fifth toe plantar left second toe plantar and left great toe plantar with all with open wounds also. Neuro oriented x3 Psych Appearance: grossly normal Speech: normal speech Thought Content: normal thought content Judgement: judgement good Debridement Note Debridement Note Wound debrided: Left plantar nonpressure ulcer Type of Debridement: Excisional debridement Anesthesia Used: 5% Lidocaine Gel Depth: in the subcutaneous layer Percentage of wound debrided: 100 Instrument Used: 7mm curette Tissue Removed: Fibrin callus Severity: Limited To Skin Breakdown Amount of bleeding with debridement: Mild Bleeding Controlled with: Compression and gauze Patient tolerated procedure: Patient tolerated procedure well Post-Debridement Measurements and Additional Note: Post-Debridement Measurements/Treatment WC - Nurse 1 - General Ulcer Assessment Start: 08/18/22 10:05 Freq: Status: Active Protocol: REMA Activity Type Activity Date Activity User E-sign Co-sign Detail Recorded Client Recorded Date Recorded By Document 08/18/22 10:06 NEEMA [id number] 08/18/22 10:08 KR Document 08/25/22 10:20 [facility] Desktop 08/25/22 10:26 BM 08/18/22 08/25/22 10:06 10:20 - Today's Visit Information Type of service Follow-up Visit Follow-up Visit (Physician/EDUCATION COURSES SALES REPRESENTATIVE (Physician/EDUCATION COURSES SALES REPRESENTATIVE ) ) Arrival Mode Ambulatory Ambulatory Transfer Assistance None Patient Identification Verified (Name & Yes Yes ) Patient Requires Transmission-Based No Precautions Vital Signs Temperature (97.8 F-99.1 F) 97.5 F L 96.7 F L Temperature Source Temporal Temporal Pulse Rate (60-100) 60 54 L Pulse Location Monitor Monitor Respiratory Rate (12-18) 16 Respiratory rate source Observation Oxygen Delivery Method Room Air Blood Pressure (90/60-120/80) 128/75 H 124/56 H Blood Pressure Mean (mm Hg) 92 78 Source Monitor Monitor Position Semi-Fowlers Sitting Blood Pressure Location Right Arm Left Arm History Since Last Visit- (Skip if this is Patient's initial visit) Have you changed medications since your No No last visit? Any new allergies or adverse reactions No No Had a fall/change in ADL's that may No No increase risk of falls Signs or symptoms of abuse and/or No No neglect since last visit Have you been in the hospital since your No No last visit? Has dressing in place as prescribed Yes No Has compression in place as prescribed N/A Yes Has offloadiing in place as prescribed N/A Yes Experienced any changes in pain level or No No management Left Footwear Regular Shoe Diabetic Shoe Right Footwear Regular Shoe Diabetic Shoe Pain Scale: 0-10 Numeric Is Patient Pain Free? Yes Yes - Nurse 1 - General Ulcer Measurement Start: 08/18/22 10:05 Freq: Status: Active Protocol: Activity Type Activity Date Activity User E-sign Co-sign Detail Recorded Client Recorded Date Recorded By Document 08/18/22 10:06 NEEMA [id number] 08/18/22 10:08 KR Document 08/25/22 10:20 BMF Desktop 08/25/22 10:26 BMF 08/18/22 08/25/22 10:06 10:20 Wound Center Nurse 1 #10 L PLANTAR -Combined with other wound No -Current Size (cm) - Length 0.4 0.4 -Current Size (cm) - Width 0.9 0.6 -Current Size (cm) - Depth 0.2 0.3 -Total Square Cm 0.36 0.24 -Photo Taken No -Epithelialization Small 1-33% -Tunneling No -Undermining/Tunneling No -Circular Undermining No -Exudate Amt Small -Exudate Type Serosanguineous -Wound Margin Distinct, Distinct, Outline Outline Attached Attached -Granulation Amt Large (67-100%) Large (67-100%) -Granulation Quality [place] Pale -Slough/Fibrin No -Necrosis Amt None Present (0 None Present (0 %) %) -Texture (Angie-wound Skin Appearance) Assessed, Assessed,Callus Scarring ,Scarring -Moisture (Angie-wound Skin Appearance) No Abnormality, Assessed, Assessed Maceration -Color (Angie-wound Skin Appearance) No Abnormality, Assessed Assessed -Temperature (Angie-wound Skin No Abnormality No Abnormality Appearance) (Pt Warm) (Pt Warm) -Tenderness on Palpation (Angie-wound No No Skin Appearance) -Ulcer Cleansing Soap and Water Rinsed/ Irrigated with Saline -Foul Odor after Cleansing No No -Anesthetic Used 5% Lidocaine 5% Lidocaine Gel Gel WC - Nurse 2 - General Ulcer CM Notes Start: 08/18/22 10:05 Freq: Status: Active Protocol: Activity Type Activity Date Activity User E-sign Co-sign Detail Recorded Client Recorded Date Recorded By Document 08/18/22 10:16 MW [id number] 08/18/22 10:23 MW Document 08/25/22 10:40 MW [id number] 08/25/22 10:42 MW 08/18/22 08/25/22 10:16 10:40 Wound Center Nurse 2 #10 L PLANTAR -Time 10:16 10:40 -Correct Patient Yes Yes -Correct Side, Site, Position Yes Yes -Correct Procedure Yes Yes -Procedure Performed Yes Yes -Type of Procedure Debridement Debridement -Clinical Debridement Subcutaneous Subcutaneous -Tissue Removed Subcutaneous Subcutaneous -Post Debridement (cm) - Length 0.6 0.4 -Post Debridement (cm) - Width 0.9 0.7 -Post Debridement (cm) - Depth 0.1 0.1 -Total Square (Post) (cm) 0.54 0.28 -Area of Debridement (cm) - Length 0.6 0.4 -Area of Debridement (cm) - Width 0.9 0.7 -Total Square (Area) (cm) 0.54 0.28 -Tunneling No No -Undermining/Tunneling No No -Circular Undermining No No -Wound/Ulcer Outcome Not Healed Not Healed -Ulcer Cleansing Rinsed/ Rinsed/ Irrigated with Irrigated with Saline Saline -Foul Odor after Cleansing No No -Bioengineered Tissue No No -Bleeding Controlled with Pressure Pressure -Treatment Response Procedure Procedure Tolerated Well Tolerated Well -Offloading No No -Debridement - Subq, 1st 20sq cm Yes Yes Pain Scale: 0-10 Numeric Is Patient Pain Free? Yes Yes - Nurse 3 - General Ulcer D/C NN Start: 08/18/22 10:05 Freq: Status: Active Protocol: Activity Type Activity Date Activity User E-sign Co-sign Detail Recorded Client Recorded Date Recorded By Document 08/18/22 12:06 AK [id number] 08/18/22 12:06 AK Document 08/25/22 11:22 AK [id number] 08/25/22 11:24 AK 08/18/22 08/25/22 12:06 11:22 Wound Care Nurse 3 #10 L PLANTAR -Ulcer Cleansing Rinsed/ Rinsed/ Irrigated with Irrigated with Saline Saline -Foul Odor after Cleansing No No -Negative Pressure Wound Therapy N/A N/A -Primary Dressing Applied NonAdherent NonAdherent Contact Layer, Contact Layer, Promogran Promogran [place] -Other Dressing stasis pad below -Primary Dressing Covered/Secured with Dry Gauze & Dry Gauze & Roll Gauze, Roll Gauze, Secured with Secured with Tape Tape -Promogran 1 -Promogran [place] 1 Pain Scale: 0-10 Numeric Is Patient Pain Free? 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 (2) Decubitus ulcer limited to breakdown of skin (stage 2): CODE(S): L89.92 - Pressure ulcer of unspecified site, stage 2 QUALIFIERS: Pressure injury location: toe Laterality: left Qualified Code(s): L89.892 - Pressure ulcer of other site, stage 2 PLAN: Wash foot with antibacterial soap pat dry apply the Promogran to wound base apply stasis pad under wound with Adaptic over top gauze and tape offload is much as possible follow-up in 2 week Apply stasis pad to second toe plantar side
[2022-09-08 10:26] VITALS: BP 145/82; PULSE 59; RESP 18; TEMP 36.3
--- NOTE | 2022-09-08 11:43 | PN.PCM_ITS ---
History of Present Illness Date of Service: 09/08/22 Chief Complaint: Follow-up on right fifth toe plantar side left plantar great toe and left plantar second toe. History of Wound: 76-year-old white male with previous history of amputations of the toes. Appears with increase in wounds to the toes for the last 6 weeks at least. He has been seen by his own rehab specialist Dr. Nguyen and he referred him to here. He is currently using Aquacel to his wounds. His usually helps with dressing changes without a problem. Progress of Wound: At this point were just following the ulcer on the plantar side of his great toe all other wounds have healed and look nice. The wound itself measures about the same but it is taken a different shape and is now become narrower and healing well still likes to get a callus around the edge but otherwise he is doing well Subjective Subjective He and his are pleased with their care and he asks if we can close it Objective Data Objective Data We will continue with the same treatment of Marisa seems to be doing well on it and hopefully we will have him back in 2 weeks and will be smaller. Vital Signs: Vital Signs Temp Pulse Resp BP O2 Del Method 97.3 F L 59 L 18 145/82 H Room Air 09/08/22 10:26 09/08/22 10:26 09/08/22 10:26 09/08/22 10:08/25/22 10:20 Oxygen Delivery Method Room Air Lab / Micro Data Attestation: I reviewed the patient's lab results. Physical Exam Const oriented x3 General Appearance: cooperative Exam Limitations: no limitations Resp normal respiratory effort Effort and Inspection: able to speak in complete sentences Auscultation: clear to auscultation bilaterally Cardio regular rate and regular rhythm Palpation: normal PMI Rate: regular rate Rhythm: regular rhythm GI Auscultation: normoactive bowel sounds Palpation: soft and no hepatosplenomegaly Extremity normal to inspection General Extremity: normal exam except as noted Skin no rashes or lesions noted Wound Narrative: Open wounds with callus around on the right fifth toe plantar left second toe plantar and left great toe plantar with all with open wounds also. Neuro oriented x3 Psych Appearance: grossly normal Speech: normal speech Thought Content: normal thought content Judgement: judgement good Debridement Note Debridement Note Wound debrided: Left foot plantar aspect of the great toe Laterality: Left Type of Debridement: Excisional debridement Anesthesia Used: 5% Lidocaine Gel Depth: in the subcutaneous layer Percentage of wound debrided: 100 Instrument Used: 5mm curette Tissue Removed: Callus and fibrin Severity: Fat Layer Exposed Amount of bleeding with debridement: None Patient tolerated procedure: Patient tolerated procedure well Post-Debridement Measurements and Additional Note: Post-Debridement Measurements/Treatment - Nurse 1 - General Ulcer Assessment Start: 08/18/22 10:05 Freq: Status: Active Protocol: REMA Activity Type Activity Date Activity User E-sign Co-sign Detail Recorded Client Recorded Date Recorded By Document 08/18/22 10:06 KR [id number] 08/18/22 10:08 KR Document 08/25/22 10:20 BM Desktop 08/25/22 10:26 BM Document 09/08/22 10:26 DL [id number] 09/08/22 10:31 DL 08/18/22 08/25/22 09/08/22 10:06 10:20 10:26 - Today's Visit Information Type of service Follow-up Visit Follow-up Visit Follow-up Visit (Physician/PALEONTOLOGICAL HELPER (Physician/PALEONTOLOGICAL HELPER (Physician/PALEONTOLOGICAL HELPER ) ) ) Arrival Mode Ambulatory Ambulatory Ambulatory Transfer Assistance None None Patient Identification Verified (Name & Yes Yes Yes ) Patient Requires Transmission-Based No No Precautions Finger Stick Blood Sugar(mg/dl) (if 138 indicated): Blood Sugar Stated by Patient Vital Signs Temperature (97.8 F-99.1 F) 97.5 F L 96.7 F L 97.3 F L Temperature Source Temporal Temporal Temporal Pulse Rate (60-100) 60 54 L 59 L Pulse Location Monitor Monitor Monitor Respiratory Rate (12-18) 16 18 Respiratory rate source Observation Observation Oxygen Delivery Method Room Air Blood Pressure (90/60-120/80) 128/75 H 124/56 H 145/82 H Blood Pressure Mean (mm Hg) 92 78 103 Source Monitor Monitor Monitor Position Semi-Fowlers Sitting Blood Pressure Location Right Arm Left Arm History Since Last Visit- (Skip if this is Patient's initial visit) Have you changed medications since your No No No last visit? Any new allergies or adverse reactions No No No Had a fall/change in ADL's that may No No No increase risk of falls Signs or symptoms of abuse and/or No No No neglect since last visit Have you been in the hospital since your No No No last visit? Has dressing in place as prescribed Yes No Yes Has compression in place as prescribed N/A Yes N/A Has offloadiing in place as prescribed N/A Yes N/A Experienced any changes in pain level or No No No management Left Footwear Regular Shoe Diabetic Shoe Right Footwear Regular Shoe Diabetic Shoe Pain Scale: 0-10 Numeric Is Patient Pain Free? Yes Yes Yes WC - Nurse 1 - General Ulcer Measurement Start: 08/18/22 10:05 Freq: Status: Active Protocol: Activity Type Activity Date Activity User E-sign Co-sign Detail Recorded Client Recorded Date Recorded By Document 08/18/22 10:06 KR [id number] 08/18/22 10:08 KR Document 08/25/22 10:20 BMF Desktop 08/25/22 10:26 BMF Document 09/08/22 10:26 DL [id number] 09/08/22 10:31 DL 08/18/22 08/25/22 09/08/22 10:06 10:20 10:26 Wound Center Nurse 1 #10 L PLANTAR -Combined with other wound No -Current Size (cm) - Length 0.4 0.4 0.3 -Current Size (cm) - Width 0.9 0.6 0.7 -Current Size (cm) - Depth 0.2 0.3 0.4 -Total Square Cm 0.36 0.24 0.21 -Photo Taken No Yes -Epithelialization Small 1-33% -Tunneling No -Undermining/Tunneling No -Undermining/Tunneling Starts (O'clock 10 ) -Undermining/Tunneling Ends (O'clock) 2 -Maximum Distance (cm) 0.3 -Circular Undermining No -Exudate Amt Small Medium -Exudate Type Serosanguineous Serosanguineous -Wound Margin Distinct, Distinct, Distinct, Outline Outline Outline Attached Attached Attached -Granulation Amt Large (67-100%) Large (67-100%) Large (67-100%) -Granulation Quality [place] Pale Red -Slough/Fibrin No -Necrosis Amt None Present (0 None Present (0 None Present (0 %) %) %) -Structure Exposed N/A -Texture (Angie-wound Skin Appearance) Assessed, Assessed,Callus Callus Scarring ,Scarring -Moisture (Angie-wound Skin Appearance) No Abnormality, Assessed, Maceration Assessed Maceration -Color (Angie-wound Skin Appearance) No Abnormality, Assessed No Abnormality Assessed -Temperature (Angie-wound Skin No Abnormality No Abnormality No Abnormality Appearance) (Pt Warm) (Pt Warm) (Pt Warm) -Tenderness on Palpation (Angie-wound No No No Skin Appearance) -Ulcer Cleansing Soap and Water Rinsed/ Rinsed/ Irrigated with Irrigated with Saline Saline -Foul Odor after Cleansing No No -Anesthetic Used 5% Lidocaine 5% Lidocaine 5% Lidocaine Gel Gel Gel WC - Nurse 2 - General Ulcer CM Notes Start: 08/18/22 10:05 Freq: Status: Active Protocol: Activity Type Activity Date Activity User E-sign Co-sign Detail Recorded Client Recorded Date Recorded By Document 08/18/22 10:16 MW [id number] 08/18/22 10:23 MW Document 08/25/22 10:40 MW [id number] 08/25/22 10:42 MW Document 09/08/22 10:43 MW [id number] 09/08/22 10:47 MW 08/18/22 08/25/22 09/08/22 10:16 10:40 10:43 Wound Center Nurse 2 #10 L PLANTAR -Time 10:16 10:40 10:44 -Correct Patient Yes Yes Yes -Correct Side, Site, Position Yes Yes Yes -Correct Procedure Yes Yes Yes -Procedure Performed Yes Yes Yes -Type of Procedure Debridement Debridement Debridement -Clinical Debridement Subcutaneous Subcutaneous Subcutaneous -Tissue Removed Subcutaneous Subcutaneous Subcutaneous -Post Debridement (cm) - Length 0.6 0.4 0.3 -Post Debridement (cm) - Width 0.9 0.7 0.7 -Post Debridement (cm) - Depth 0.1 0.1 0.2 -Total Square (Post) (cm) 0.54 0.28 0.21 -Area of Debridement (cm) - Length 0.6 0.4 0.3 -Area of Debridement (cm) - Width 0.9 0.7 0.7 -Total Square (Area) (cm) 0.54 0.28 0.21 -Tunneling No No No -Undermining/Tunneling No No No -Circular Undermining No No No -Wound/Ulcer Outcome Not Healed Not Healed Not Healed -Ulcer Cleansing Rinsed/ Rinsed/ Rinsed/ Irrigated with Irrigated with Irrigated with Saline Saline Saline -Foul Odor after Cleansing No No No -Bioengineered Tissue No No No -Bleeding Controlled with Pressure Pressure Pressure -Treatment Response Procedure Procedure Procedure Tolerated Well Tolerated Well Tolerated Well -Offloading No No No -Debridement - Subq, 1st 20sq cm Yes Yes Yes Pain Scale: 0-10 Numeric Is Patient Pain Free? Yes Yes Yes - Nurse 3 - General Ulcer D/C NN Start: 08/18/22 10:05 Freq: Status: Active Protocol: Activity Type Activity Date Activity User E-sign Co-sign Detail Recorded Client Recorded Date Recorded By Document 08/18/22 12:06 AK [id number] 08/18/22 12:06 AK Document 08/25/22 11:22 [place] [id number] 08/25/22 11:24 AK Document 09/08/22 11:10 MW [id number] 09/08/22 11:11 MW 08/18/22 08/25/22 09/08/22 12:06 11:22 11:10 Wound Care Nurse 3 #10 L PLANTAR -Ulcer Cleansing Rinsed/ Rinsed/ Rinsed/ Irrigated with Irrigated with Irrigated with Saline Saline Saline -Foul Odor after Cleansing No No No -Negative Pressure Wound Therapy N/A N/A N/A -Primary Dressing Applied NonAdherent NonAdherent NonAdherent Contact Layer, Contact Layer, Contact Layer, Promogran Promogran Promogran [place] Matter -Other Dressing stasis pad below -Primary Dressing Covered/Secured with Dry Gauze & Dry Gauze & Dry Gauze & Roll Gauze, Roll Gauze, Roll Gauze, Secured with Secured with Secured with Tape Tape Tape -Promogran 1 1 -Promogran [place] Matter 1 Treatment Response Procedure Tolerated Well Pain Scale: 0-10 Numeric Is Patient Pain Free? 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 (2) Decubitus ulcer limited to breakdown of skin (stage 2): CODE(S): L89.92 - Pressure ulcer of unspecified site, stage 2 QUALIFIERS: Pressure injury location: toe Laterality: left Qualified Code(s): L89.892 - Pressure ulcer of other site, stage 2 PLAN: Wash foot with antibacterial soap pat dry apply the Promogran to wound base apply stasis pad under wound with Adaptic over top gauze and tape offload is much as possible follow-up in 2 week Apply stasis pad to second toe plantar side
== END 2022-09-13 23:59 | disposition home or self-care (01) ==
LOC: WC 10:15
PROVIDERS: PCP Family Medicine; Visit Provider Nurse Practitioner
DX: L89.892 Pressure ulcer of other site, stage 2 (principal); E08.621 Diabetes mellitus due to underlying condition with foot ulcer; L89.92 Pressure ulcer of unspecified site, stage 2; L97.522 Non-pressure chronic ulcer of other part of left foot with fat layer exposed; L97.526 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 involvement without evidence of necrosis
CPT/HCPCS: 11042

== ENCOUNTER → 2022-10-08 | Outpatient (CLI) | payer MEDICARE, OTHER, SELFPAY ==
[2022-10-08 10:12] VITALS: BP 114/63; PULSE 64; RESP 16; TEMP 35.7; O2SAT 97; BMI 30.2
[2022-10-08] MEDS: DiphenhydrAMINE 50 MG/ML Syringe 12.5 MG IV (10:20)
== END | disposition home or self-care (01) ==
LOC: MEDOUTP 10:01
PROVIDERS: PCP Family Medicine; Referring Provider Family Medicine; Visit Provider Family Medicine
DX: L40.52 Psoriatic arthritis mutilans (principal); L40.3 Pustulosis palmaris et plantaris; L85.3 Xerosis cutis; M50.90 Cervical disc disorder, unspecified, unspecified cervical region; M17.0 Bilateral primary osteoarthritis of knee; L21.9 Seborrheic dermatitis, unspecified; Z79.1 Long term (current) use of non-steroidal anti-inflammatories (NSAID); Z79.899 Other long term (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
CPT/HCPCS: 96375; 96413; 96415; J7050; A4216; Q5103

== ENCOUNTER 2022-10-13 09:45 | Outpatient (RCR) | payer MEDICARE, OTHER, SELFPAY ==
[2022-09-14 00:28] VITALS: BP 145/82; PULSE 59; RESP 18; TEMP 36.3
[2022-09-22 10:16] VITALS: BP 135/61; PULSE 67; RESP 16; TEMP 35.9
--- NOTE | 2022-09-22 11:12 | PN.PCM_ITS ---
History of Present Illness Date of Service: 09/22/22 Chief Complaint: Follow-up on right fifth toe plantar side left plantar great toe and left plantar second toe. History of Wound: 76-year-old white male with previous history of amputations of the toes. Appears with increase in wounds to the toes for the last 6 weeks at least. He has been seen by his own [employer] equipment operator Dr. Nguyen and he referred him to here. He is currently using Aquacel to his wounds. His usually helps with dressing changes without a problem. Progress of Wound: Wound has developed some undermining that will be removed and some redness going into the second toe again at the base patient complains he has some pain in that second toe. Measures are smaller on the wound we will continue with the Promogran to heal Subjective Subjective complains that there is some undermining and she thought there was some odor to the wound. She also would like the second toe callus removed from the plantar side. The second toe continues to be closed Objective Data Objective Data No odor noted redness at the base of the second toe going into the plantar wound on the great toe. Removed callus with nippers and the undermining that was on the wound. Obtain cultures for aerobic and anaerobic bacteria. We will continue using the Promogran to close patient tolerated treatment well. Debrided callus off the second toe with nippers Vital Signs: Vital Signs Temp Pulse Resp BP O2 Del Method 96.7 F L 67 16 135/61 H Room Air 09/22/22 10:16 09/22/22 10:16 09/22/22 10:16 09/22/22 10:16 09/22/22 10:16 Oxygen Delivery Method Room Air Lab / Micro Data Attestation: I reviewed the patient's lab results. Physical Exam Const oriented x3 General Appearance: cooperative Exam Limitations: no limitations Resp normal respiratory effort Effort and Inspection: able to speak in complete sentences Auscultation: clear to auscultation bilaterally Cardio regular rate and regular rhythm Palpation: normal PMI Rate: regular rate Rhythm: regular rhythm GI Auscultation: normoactive bowel sounds Palpation: soft and no hepatosplenomegaly Extremity normal to inspection General Extremity: normal exam except as noted Skin no rashes or lesions noted Wound Narrative: Open wounds with callus around on the right fifth toe plantar left second toe plantar and left great toe plantar with all with open wounds also. Neuro oriented x3 Psych Appearance: grossly normal Speech: normal speech Thought Content: normal thought content Judgement: judgement good Debridement Note Debridement Note Wound debrided: Plantar side of great toe Laterality: Left Type of Debridement: Excisional debridement Anesthesia Used: 5% Lidocaine Gel Depth: in the subcutaneous layer Percentage of wound debrided: 100 Instrument Used: 7mm curette, #15 blade, Forceps and - (Nippers) Tissue Removed: Callus fibrin Severity: Fat Layer Exposed Amount of bleeding with debridement: Mild Bleeding Controlled with: Compression and gauze Patient tolerated procedure: Patient tolerated procedure well Debridement Free Text: Debrided callus on second toe with nippers, no open wound Post-Debridement Measurements and Additional Note: Post-Debridement Measurements/Treatment - Nurse 1 - General Ulcer Assessment Start: 09/22/22 10:16 Freq: Status: Active Protocol: REMA Activity Type Activity Date Activity User E-sign Co-sign Detail Recorded Client Recorded Date Recorded By Document 09/22/22 10:16 [facility] [id number] 09/22/22 10:18 [facility] 09/22/22 10:16 - Today's Visit Information Type of service Follow-up Visit (Physician/GAS UTILITY WORKER ) Arrival Mode Ambulatory Transfer Assistance None Accompanied by Patient Identification Verified (Name & Yes ) Patient Requires Transmission-Based No Precautions Vital Signs Temperature (97.8 F-99.1 F) 96.7 F L Temperature Source Temporal Pulse Rate (60-100) 67 Pulse Location Monitor Respiratory Rate (12-18) 16 Respiratory rate source Observation Oxygen Delivery Method Room Air Blood Pressure (90/60-120/80) 135/61 H Blood Pressure Mean (mm Hg) 85 Source Monitor Position Sitting Blood Pressure Location Left Arm History Since Last Visit- (Skip if this is Patient's initial visit) Have you changed medications since your No last visit? Any new allergies or adverse reactions No Had a fall/change in ADL's that may No increase risk of falls Signs or symptoms of abuse and/or No neglect since last visit Have you been in the hospital since your No last visit? Has dressing in place as prescribed Yes Has compression in place as prescribed Yes Has offloadiing in place as prescribed N/A Experienced any changes in pain level or No management Left Footwear Removable Cast Walker/Walking Boot Right Footwear Regular Shoe Pain Scale: 0-10 Numeric Is Patient Pain Free? Yes WC - Nurse 1 - General Ulcer Measurement Start: 09/22/22 10:16 Freq: Status: Active Protocol: Activity Type Activity Date Activity User E-sign Co-sign Detail Recorded Client Recorded Date Recorded By Document 09/22/22 10:16 [facility] [id number] 09/22/22 10:18 BM 09/22/22 10:16 Wound Center Nurse 1 #10 L PLANTAR -Combined with other wound No -Current Size (cm) - Length 0.4 -Current Size (cm) - Width 0.4 -Current Size (cm) - Depth 0.4 -Total Square Cm 0.16 -Date of Last Picture (Recall this 09/22/22 field) -Photo Taken Yes -Epithelialization None Present -Tunneling No -Undermining/Tunneling Yes -Undermining/Tunneling Starts (O'clock 1 ) -Undermining/Tunneling Ends (O'clock) 3 -Maximum Distance (cm) 0.4 -Circular Undermining No -Exudate Amt Medium -Exudate Type Serosanguineous -Wound Margin Thickened -Granulation Amt Medium (34-66%) -Granulation Quality Red -Slough/Fibrin No -Necrosis Amt Medium (34-66%) -Necrotic Tissue Type Adherent Slough -Texture (Angie-wound Skin Appearance) Assessed,Callus -Moisture (Angie-wound Skin Appearance) Assessed,Dry/ Scaly -Color (Angie-wound Skin Appearance) Assessed -Temperature (Angie-wound Skin No Abnormality Appearance) (Pt Warm) -Tenderness on Palpation (Angie-wound No Skin Appearance) -Ulcer Cleansing Rinsed/ Irrigated with Saline -Foul Odor after Cleansing No -Anesthetic Used 5% Lidocaine Gel WC - Nurse 2 - General Ulcer CM Notes Start: 09/22/22 10:16 Freq: Status: Active Protocol: Activity Type Activity Date Activity User E-sign Co-sign Detail Recorded Client Recorded Date Recorded By Document 09/22/22 10:31 MW [id number] 09/22/22 10:45 MW 09/22/22 10:31 Wound Center Nurse 2 -Time 10:31 -Correct Patient Yes -Correct Side, Site, Position Yes -Correct Procedure Yes -Procedure Performed Yes -Type of Procedure Debridement -Clinical Debridement Subcutaneous -Tissue Removed Epidermis, Subcutaneous -Post Debridement (cm) - Length 0.5 -Post Debridement (cm) - Width 0.8 -Post Debridement (cm) - Depth 0.2 -Total Square (Post) (cm) 0.40 -Area of Debridement (cm) - Length 0.5 -Area of Debridement (cm) - Width 0.8 -Total Square (Area) (cm) 0.40 -Tunneling No -Undermining/Tunneling No -Circular Undermining No -Wound/Ulcer Outcome Not Healed -Ulcer Cleansing Rinsed/ Irrigated with Saline -Foul Odor after Cleansing No -Bioengineered Tissue No -Bleeding Controlled with Pressure -Treatment Response Procedure Tolerated Well -Offloading No -Debridement - Subq, 1st 20sq cm Yes Pain Scale: 0-10 Numeric Is Patient Pain Free? Yes - Nurse 3 - General Ulcer D/C NN Start: 09/22/22 10:16 Freq: Status: Active Protocol: Activity Type Activity Date Activity User E-sign Co-sign Detail Recorded Client Recorded Date Recorded By Document 09/22/22 11:00 [facility] [id number] 09/22/22 11:01 [facility] 09/22/22 11:00 Wound Care Nurse 3 #10 L PLANTAR -Ulcer Cleansing Rinsed/ Irrigated with Saline -Foul Odor after Cleansing No -Negative Pressure Wound Therapy N/A -Primary Dressing Applied Promogran -Other Dressing stasis pad -Primary Dressing Covered/Secured with Dry Gauze & Roll Gauze -Promogran 1 Pain Scale: 0-10 Numeric Is Patient Pain Free? 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 (2) Decubitus ulcer limited to breakdown of skin (stage 2): CODE(S): L89.92 - Pressure ulcer of unspecified site, stage 2 QUALIFIERS: Pressure injury location: toe Laterality: left Qualified Code(s): L89.892 - Pressure ulcer of other site, stage 2 PLAN: Wash foot with antibacterial soap pat dry apply the Promogran to wound base apply stasis pad under wound with Adaptic over top gauze and tape offload is much as possible follow-up in 1 week Apply stasis pad to second toe plantar side
[2022-09-29 10:34] VITALS: RESP 16; TEMP 36.3
--- NOTE | 2022-09-29 11:01 | PN.PCM_ITS ---
History of Present Illness Date of Service: 09/29/22 Chief Complaint: Follow-up on right fifth toe plantar side left plantar great toe and left plantar second toe. History of Wound: 76-year-old white male with previous history of amputations of the toes. Appears with increase in wounds to the toes for the last 6 weeks at least. He has been seen by his own manager fleet Dr. Nguyen and he referred him to here. He is currently using Aquacel to his wounds. His usually helps with dressing changes without a problem. Progress of Wound: Wound has developed some undermining that will be removed and some redness going into the second toe again at the base patient complains he has some pain in that second toe. Patient was positive on last week's wound cultures with cocci's. Patient has not started antibiotics yet will start today. Wound is actually measuring smaller no odor redness is still there in between the great toe and 2nd toe We will change his dressing to Anne Marie until done with antibiotic therapy. Subjective Subjective Patient was unaware that he had antibiotics waiting will start today Objective Data Objective Data Wound looks good but needs to be on antibiotics he does have bacteria and anaerobes Vital Signs: Vital Signs Temp Pulse Resp BP O2 Del Method 97.3 F L 67 16 135/61 H Room Air 09/29/22 10:34 09/22/22 10:16 09/29/22 10:34 09/22/22 10:16 09/29/22 10:34 Oxygen Delivery Method Room Air Lab / Micro Data Attestation: I reviewed the patient's lab results. Micro: Microbiology 09/22/22 10:35 Wound Abcess - Left Foot Gram Stain - Final 09/22/22 10:35 Wound Abcess - Left Foot Wound Culture - Final Staphylococcus aureus 09/22/22 10:35 Wound Abcess - Left Foot Anaerobic Culture - Final Anaerobic cocci Physical Exam Const oriented x3 General Appearance: cooperative Exam Limitations: no limitations Resp normal respiratory effort Effort and Inspection: able to speak in complete sentences Auscultation: clear to auscultation bilaterally Cardio regular rate and regular rhythm Palpation: normal PMI Rate: regular rate Rhythm: regular rhythm GI Auscultation: normoactive bowel sounds Palpation: soft and no hepatosplenomegaly Extremity normal to inspection General Extremity: normal exam except as noted Skin no rashes or lesions noted Wound Narrative: Open wounds with callus around on the right fifth toe plantar left second toe plantar and left great toe plantar with all with open wounds also. Neuro oriented x3 Psych Appearance: grossly normal Speech: normal speech Thought Content: normal thought content Judgement: judgement good Debridement Note Debridement Note Wound debrided: Left foot ulcer Laterality: Left Wound Grade/Stage: Stage II Type of Debridement: Excisional debridement Anesthesia Used: 5% Lidocaine Gel Depth: Down to and including healthy tissue and in the subcutaneous layer Percentage of wound debrided: 100 Instrument Used: 5mm curette Tissue Removed: Callus fibrin Severity: Fat Layer Exposed Amount of bleeding with debridement: Mild Bleeding Controlled with: Compression and gauze Patient tolerated procedure: Patient tolerated procedure well Post-Debridement Measurements and Additional Note: Post-Debridement Measurements/Treatment - Nurse 1 - General Ulcer Assessment Start: 09/22/22 10:16 Freq: Status: Active Protocol: JONNY.LIDA Activity Type Activity Date Activity User E-sign Co-sign Detail Recorded Client Recorded Date Recorded By Document 09/22/22 10:16 [facility] [id number] 09/22/22 10:18 [facility] Document 09/29/22 10:34 [facility] [id number] 09/29/22 10:41 [facility] 09/22/22 09/29/22 10:16 10:34 - Today's Visit Information Type of service Follow-up Visit Follow-up Visit (Physician/PIN WORKER (Physician/PIN WORKER ) ) Arrival Mode Ambulatory Ambulatory Transfer Assistance None None Accompanied by Patient Identification Verified (Name & Yes Yes ) Patient Requires Transmission-Based No No Precautions Vital Signs Temperature (97.8 F-99.1 F) 96.7 F L 97.3 F L Temperature Source Temporal Temporal Pulse Rate (60-100) 67 Pulse Location Monitor Monitor Respiratory Rate (12-18) 16 16 Respiratory rate source Observation Observation Oxygen Delivery Method Room Air Room Air Blood Pressure (90/60-120/80) 135/61 H Blood Pressure Mean (mm Hg) 85 Source Monitor Monitor Position Sitting Sitting Blood Pressure Location Left Arm Left Arm History Since Last Visit- (Skip if this is Patient's initial visit) Have you changed medications since your No No last visit? Any new allergies or adverse reactions No No Had a fall/change in ADL's that may No No increase risk of falls Signs or symptoms of abuse and/or No No neglect since last visit Have you been in the hospital since your No No last visit? Has dressing in place as prescribed Yes Yes Has compression in place as prescribed Yes N/A Has offloadiing in place as prescribed N/A Yes Experienced any changes in pain level or No No management Left Footwear Removable Cast Diabetic Shoe Walker/Walking Boot Right Footwear Regular Shoe Diabetic Shoe Pain Scale: 0-10 Numeric Is Patient Pain Free? Yes Yes WC - Nurse 1 - General Ulcer Measurement Start: 09/22/22 10:16 Freq: Status: Active Protocol: Activity Type Activity Date Activity User E-sign Co-sign Detail Recorded Client Recorded Date Recorded By Document 09/22/22 10:16 [facility] [id number] 09/22/22 10:18 BM Document 09/29/22 10:34 [facility] [id number] 09/29/22 10:41 BMF 09/22/22 09/29/22 10:16 10:34 Wound Center Nurse 1 #10 L PLANTAR -Combined with other wound No No -Current Size (cm) - Length 0.4 0.3 -Current Size (cm) - Width 0.4 0.5 -Current Size (cm) - Depth 0.4 0.4 -Total Square Cm 0.16 0.15 -Date of Last Picture (Recall this 09/22/22 field) -Photo Taken Yes Yes -Epithelialization None Present -Tunneling No No -Undermining/Tunneling Yes No -Undermining/Tunneling Starts (O'clock 1 ) -Undermining/Tunneling Ends (O'clock) 3 -Maximum Distance (cm) 0.4 -Circular Undermining No No -Change in Wound Grade/Stage No -Exudate Amt Medium Medium -Exudate Type Serosanguineous Serosanguineous -Wound Margin Thickened Distinct, Outline Attached -Granulation Amt Medium (34-66%) Large (67-100%) -Granulation Quality Red Red -Slough/Fibrin No No -Necrosis Amt Medium (34-66%) None Present (0 %) -Necrotic Tissue Type Adherent Slough -Structure Exposed N/A -Texture (Angie-wound Skin Appearance) Assessed,Callus Assessed,Callus -Moisture (Angie-wound Skin Appearance) Assessed,Dry/ No Abnormality, Scaly Assessed -Color (Angie-wound Skin Appearance) Assessed No Abnormality, Assessed -Temperature (Angie-wound Skin No Abnormality No Abnormality Appearance) (Pt Warm) (Pt Warm) -Tenderness on Palpation (Angie-wound No No Skin Appearance) -Ulcer Cleansing Rinsed/ Rinsed/ Irrigated with Irrigated with Saline Saline -Foul Odor after Cleansing No No -Anesthetic Used 5% Lidocaine 5% Lidocaine Gel Gel WC - Nurse 2 - General Ulcer CM Notes Start: 09/22/22 10:16 Freq: Status: Active Protocol: Activity Type Activity Date Activity User E-sign Co-sign Detail Recorded Client Recorded Date Recorded By Document 09/22/22 10:31 MW [id number] 09/22/22 10:45 MW Document 09/29/22 10:48 MW [id number] 09/29/22 10:55 MW 09/22/22 09/29/22 10:31 10:48 Wound Center Nurse 2 #10 L PLANTAR -Time 10:31 10:53 -Correct Patient Yes Yes -Correct Side, Site, Position Yes Yes -Correct Procedure Yes Yes -Procedure Performed Yes Yes -Type of Procedure Debridement Debridement -Clinical Debridement Subcutaneous Subcutaneous -Tissue Removed Epidermis, Subcutaneous Subcutaneous -Post Debridement (cm) - Length 0.5 0.4 -Post Debridement (cm) - Width 0.8 0.5 -Post Debridement (cm) - Depth 0.2 0.2 -Total Square (Post) (cm) 0.40 0.20 -Area of Debridement (cm) - Length 0.5 0.4 -Area of Debridement (cm) - Width 0.8 0.5 -Total Square (Area) (cm) 0.40 0.20 -Tunneling No No -Undermining/Tunneling No No -Circular Undermining No No -Wound/Ulcer Outcome Not Healed Not Healed -Ulcer Cleansing Rinsed/ Rinsed/ Irrigated with Irrigated with Saline Saline -Foul Odor after Cleansing No No -Bioengineered Tissue No No -Bleeding Controlled with Pressure Pressure -Treatment Response Procedure Procedure Tolerated Well Tolerated Well -Offloading No No -Debridement - Subq, 1st 20sq cm Yes Yes Pain Scale: 0-10 Numeric Is Patient Pain Free? Yes Yes WC - Nurse 3 - General Ulcer D/C NN Start: 09/22/22 10:16 Freq: Status: Active Protocol: Activity Type Activity Date Activity User E-sign Co-sign Detail Recorded Client Recorded Date Recorded By Document 09/22/22 11:00 OCTAVIO [id number] 09/22/22 11:01 OCTAVIO 09/22/22 11:00 Wound Care Nurse 3 #10 L PLANTAR -Ulcer Cleansing Rinsed/ Irrigated with Saline -Foul Odor after Cleansing No -Negative Pressure Wound Therapy N/A -Primary Dressing Applied Promogran -Other Dressing stasis pad -Primary Dressing Covered/Secured with Dry Gauze & Roll Gauze -Promogran 1 Pain Scale: 0-10 Numeric Is Patient Pain Free? 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 Start antibiotic therapy REBECA for bacteria and anaerobes
--- NOTE | 2022-09-29 11:30 | RAD_ITS ---
STUDY: X-RAY LEFT FOOT, LEFT TOE REASON FOR EXAM: Male, 77 years old. Wound of the left toe. TECHNIQUE: 3 view(s) of the toes of the left foot were obtained. COMPARISON: June 09, 2022. FINDINGS: Osteopenia. 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 Loss of substance of the distal aspect of the distal phalanx of the third digit with fusion at the PIP and DIP joints, unchanged from prior study. Findings may be secondary 2 surgery or trauma. Diffuse soft tissue swelling. RAD/Toe(s) Min 2 Views IMPRESSION: Stable post compared to the prior study. Diffuse soft tissue swelling with no focal bone resorption to suggest osteomyelitis. Electronically Signed: Navid Oconnor, at 12:48 EST ,
--- NOTE | 2022-09-29 11:43 | RAD_ITS ---
STUDY: X-RAY - LEFT FOOT CLINICAL: Male, 77 years old. Wound. TECHNIQUE: 3 view(s) of the foot. COMPARISON: June 09, 2022. FINDINGS: Diffuse osteopenia unchanged. Stable mild arthrosis of the tibiotalar joint. Mild arthrosis of the subtalar joint unchanged. Stable small inferior calcaneal spur. Stable moderate arthrosis of the midfoot. Mild arthrosis of the TMT joints unchanged. 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 Stable deformity of the proximal and distal phalanges of the third digit which may be secondary to remote trauma or postsurgical changes. Diffuse soft tissue swelling with no bone resorption to suggest osteomyelitis.. RAD/Foot min 3 Views IMPRESSION: Stable osteopenia with inferior calcaneal spur and diffuse osteoarthritic changes. No acute abnormality, chondrocalcinosis or erosive changes. Electronically Signed: Navid Oconnor, at 12:50 EST ,
[2022-10-06 10:07] VITALS: BP 115/70; PULSE 63; RESP 16; TEMP 36
--- NOTE | 2022-10-06 12:59 | PCM.WC.PN ---
History of Present Illness Date of Service: 10/06/22 Chief Complaint: Follow-up on right fifth toe plantar side left plantar great toe and left plantar second toe. History of Wound: 76-year-old white male with previous history of amputations of the toes. Appears with increase in wounds to the toes for the last 6 weeks at least. He has been seen by his own scale technician Dr. Nguyen and he referred him to here. He is currently using Aquacel to his wounds. His usually helps with dressing changes without a problem. Progress of Wound: Wound is very clean measuring smaller depth is good no sign of infection. Patient still on antibiotic therapy from previous bacteria growth. No odor or signs of infection noted Subjective Subjective Patient is happy with care Objective Data Objective Data Continue with the same wound care using Anne Marie in base to keep clean Vital Signs: Vital Signs Temp Pulse Resp BP O2 Del Method 96.8 F L 63 16 115/70 Room Air 10/06/22 10:07 10/06/22 10:07 10/06/22 10:07 10/06/22 10:07 10/06/22 10:07 Oxygen Delivery Method Room Air Lab / Micro Data Attestation: I reviewed the patient's lab results. Micro: Microbiology 09/22/22 10:35 Wound Abcess - Left Foot Gram Stain - Final 09/22/22 10:35 Wound Abcess - Left Foot Wound Culture - Final Staphylococcus aureus 09/22/22 10:35 Wound Abcess - Left Foot Anaerobic Culture - Final Anaerobic cocci Physical Exam Const oriented x3 General Appearance: cooperative Exam Limitations: no limitations Resp normal respiratory effort Effort and Inspection: able to speak in complete sentences Auscultation: clear to auscultation bilaterally Cardio regular rate and regular rhythm Palpation: normal PMI Rate: regular rate Rhythm: regular rhythm GI Auscultation: normoactive bowel sounds Palpation: soft and no hepatosplenomegaly Extremity normal to inspection General Extremity: normal exam except as noted Skin no rashes or lesions noted Wound Narrative: Open wounds with callus around on the right fifth toe plantar left second toe plantar and left great toe plantar with all with open wounds also. Neuro oriented x3 Psych Appearance: grossly normal Speech: normal speech Thought Content: normal thought content Judgement: judgement good Debridement Note Debridement Note Wound debrided: Left plantar foot diabetic foot ulcer Laterality: Left Wound Grade/Stage: Stage III Type of Debridement: Excisional debridement Anesthesia Used: 5% Lidocaine Gel Depth: in the subcutaneous layer Percentage of wound debrided: 100 Instrument Used: 7mm curette and - (Nippers) Tissue Removed: Callus fibrin Severity: Limited To Skin Breakdown Amount of bleeding with debridement: Mild Bleeding Controlled with: Compression and gauze Patient tolerated procedure: Patient tolerated procedure well Post-Debridement Measurements and Additional Note: Post-Debridement Measurements/Treatment - Nurse 1 - General Ulcer Assessment Start: 09/22/22 10:16 Freq: Status: Active Protocol: REMA Activity Type Activity Date Activity User E-sign Co-sign Detail Recorded Client Recorded Date Recorded By Document 09/22/22 10:16 [facility] [id number] 09/22/22 10:18 [facility] Document 09/29/22 10:34 [facility] [id number] 09/29/22 10:41 [facility] Document 10/06/22 10:07 [id number] 10/06/22 10:12 09/22/22 09/29/22 10/06/22 10:16 10:34 10:07 - Today's Visit Information Type of service Follow-up Visit Follow-up Visit Follow-up Visit (Physician/PELLETIZER OPERATOR (Physician/PELLETIZER OPERATOR (Physician/PELLETIZER OPERATOR ) ) ) Arrival Mode Ambulatory Ambulatory Ambulatory Transfer Assistance None None None Accompanied by Patient Identification Verified (Name & Yes Yes Yes ) Patient Requires Transmission-Based No No No Precautions Vital Signs Temperature (97.8 F-99.1 F) 96.7 F L 97.3 F L 96.8 F L Temperature Source Temporal Temporal Temporal Pulse Rate (60-100) 67 63 Pulse Location Monitor Monitor Monitor Respiratory Rate (12-18) 16 16 16 Respiratory rate source Observation Observation Observation Oxygen Delivery Method Room Air Room Air Room Air Blood Pressure (90/60-120/80) 135/61 H 115/70 Blood Pressure Mean (mm Hg) 85 85 Source Monitor Monitor Monitor Position Sitting Sitting Sitting Blood Pressure Location Left Arm Left Arm Left Arm History Since Last Visit- (Skip if this is Patient's initial visit) Have you changed medications since your No No No last visit? Any new allergies or adverse reactions No No No Had a fall/change in ADL's that may No No No increase risk of falls Signs or symptoms of abuse and/or No No No neglect since last visit Have you been in the hospital since your No No No last visit? Has dressing in place as prescribed Yes Yes Yes Has compression in place as prescribed Yes N/A N/A Has offloadiing in place as prescribed N/A Yes Yes Experienced any changes in pain level or No No No management Left Footwear Removable Cast Diabetic Shoe Diabetic Shoe Walker/Walking Boot Right Footwear Regular Shoe Diabetic Shoe Diabetic Shoe Pain Scale: 0-10 Numeric Is Patient Pain Free? Yes Yes Yes - Nurse 1 - General Ulcer Measurement Start: 09/22/22 10:16 Freq: Status: Active Protocol: Activity Type Activity Date Activity User E-sign Co-sign Detail Recorded Client Recorded Date Recorded By Document 09/22/22 10:16 [facility] [id number] 09/22/22 10:18 [facility] Document 09/29/22 10:34 [facility] [id number] 09/29/22 10:41 [facility] Document 10/06/22 10:07 [id number] 10/06/22 10:12 09/22/22 09/29/22 10/06/22 10:16 10:34 10:07 Wound Center Nurse 1 #10 L PLANTAR -Combined with other wound No No No -Current Size (cm) - Length 0.4 0.3 0.4 -Current Size (cm) - Width 0.4 0.5 0.5 -Current Size (cm) - Depth 0.4 0.4 0.1 -Total Square Cm 0.16 0.15 0.20 -Date of Last Picture (Recall this 09/22/22 10/06/22 field) -Photo Taken Yes Yes Yes -Epithelialization None Present Small 1-33% -Tunneling No No No -Undermining/Tunneling Yes No No -Undermining/Tunneling Starts (O'clock 1 ) -Undermining/Tunneling Ends (O'clock) 3 -Maximum Distance (cm) 0.4 -Circular Undermining No No No -Change in Wound Grade/Stage No -Exudate Amt Medium Medium Medium -Exudate Type Serosanguineous Serosanguineous Serosanguineous -Wound Margin Thickened Distinct, Distinct, Outline Outline Attached Attached -Granulation Amt Medium (34-66%) Large (67-100%) Large (67-100%) -Granulation Quality Red Red Pale -Slough/Fibrin No No Yes -Necrosis Amt Medium (34-66%) None Present (0 Small (1-33%) %) -Necrotic Tissue Type Adherent Slough Adherent Slough -Structure Exposed N/A -Texture (Angie-wound Skin Appearance) Assessed,Callus Assessed,Callus Assessed,Callus -Moisture (Angie-wound Skin Appearance) Assessed,Dry/ No Abnormality, Assessed,Dry/ Scaly Assessed Scaly -Color (Angie-wound Skin Appearance) Assessed No Abnormality, Assessed Assessed -Temperature (Nagie-wound Skin No Abnormality No Abnormality No Abnormality Appearance) (Pt Warm) (Pt Warm) (Pt Warm) -Tenderness on Palpation (Angie-wound No No No Skin Appearance) -Ulcer Cleansing Rinsed/ Rinsed/ Rinsed/ Irrigated with Irrigated with Irrigated with Saline Saline Saline -Foul Odor after Cleansing No No No -Anesthetic Used 5% Lidocaine 5% Lidocaine 5% Lidocaine Gel Gel Gel WC - Nurse 2 - General Ulcer CM Notes Start: 09/22/22 10:16 Freq: Status: Active Protocol: Activity Type Activity Date Activity User E-sign Co-sign Detail Recorded Client Recorded Date Recorded By Document 09/22/22 10:31 MW [id number] 09/22/22 10:45 MW Document 09/29/22 10:48 MW [id number] 09/29/22 10:55 MW Document 10/06/22 10:24 MW [id number] 10/06/22 10:29 MW 09/22/22 09/29/22 10/06/22 10:31 10:48 10:24 Wound Center Nurse 2 #10 L PLANTAR -Time 10:31 10:53 10:24 -Correct Patient Yes Yes Yes -Correct Side, Site, Position Yes Yes Yes -Correct Procedure Yes Yes Yes -Procedure Performed Yes Yes Yes -Type of Procedure Debridement Debridement Debridement -Clinical Debridement Subcutaneous Subcutaneous Subcutaneous -Tissue Removed Epidermis, Subcutaneous Subcutaneous Subcutaneous -Post Debridement (cm) - Length 0.5 0.4 0.4 -Post Debridement (cm) - Width 0.8 0.5 0.7 -Post Debridement (cm) - Depth 0.2 0.2 0.2 -Total Square (Post) (cm) 0.40 0.20 0.28 -Area of Debridement (cm) - Length 0.5 0.4 0.4 -Area of Debridement (cm) - Width 0.8 0.5 0.7 -Total Square (Area) (cm) 0.40 0.20 0.28 -Tunneling No No No -Undermining/Tunneling No No No -Circular Undermining No No No -Wound/Ulcer Outcome Not Healed Not Healed Not Healed -Ulcer Cleansing Rinsed/ Rinsed/ Rinsed/ Irrigated with Irrigated with Irrigated with Saline Saline Saline -Foul Odor after Cleansing No No No -Bioengineered Tissue No No No -Bleeding Controlled with Pressure Pressure Pressure -Treatment Response Procedure Procedure Procedure Tolerated Well Tolerated Well Tolerated Well -Offloading No No No -Debridement - Subq, 1st 20sq cm Yes Yes Yes Pain Scale: 0-10 Numeric Is Patient Pain Free? Yes Yes Yes WC - Nurse 3 - General Ulcer D/C NN Start: 09/22/22 10:16 Freq: Status: Active Protocol: Activity Type Activity Date Activity User E-sign Co-sign Detail Recorded Client Recorded Date Recorded By Document 09/22/22 11:00 [place] [id number] 09/22/22 11:01 [place] Document 09/29/22 11:06 [facility] [id number] 09/29/22 11:07 [facility] Document 10/06/22 10:38 [facility] [id number] 10/06/22 10:38 [facility] 09/22/22 09/29/22 10/06/22 11:00 11:06 10:38 Wound Care Nurse 3 #10 L PLANTAR -Ulcer Cleansing Rinsed/ Rinsed/ Rinsed/ Irrigated with Irrigated with Irrigated with Saline Saline Saline -Foul Odor after Cleansing No No No -Negative Pressure Wound Therapy N/A -Primary Dressing Applied Promogran NonAdherent NonAdherent Contact Layer, Contact Layer, Promogran Promogran Anne Marie Matter Anne Marie Matter -Other Dressing stasis pad [facility] -Primary Dressing Covered/Secured with Dry Gauze & Dry Gauze & Dry Gauze & Roll Gauze Roll Gauze, Roll Gauze, Secured with Secured with Tape Tape -Other Covering DRSG PER [place] [employer] stasis pad -Promogran 1 -Promogran Anne Marie Matter 1 1 Treatment Response Procedure Procedure Tolerated Well Tolerated Well Pain Scale: 0-10 Numeric Is Patient Pain Free? 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 Continue antibiotic therapy REBECA for bacteria and anaerobes
[2022-10-13 10:01] VITALS: BP 154/77; PULSE 60; TEMP 35.3
--- NOTE | 2022-10-13 10:30 | PN.PCM_ITS ---
History of Present Illness Date of Service: 10/13/22 Chief Complaint: Follow-up on right fifth toe plantar side left plantar great toe and left plantar second toe. History of Wound: 76-year-old white male with previous history of amputations of the toes. Appears with increase in wounds to the toes for the last 6 weeks at least. 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 Nguyen and he referred him to here. He is currently using Aquacel to his wounds. His usually helps with dressing changes without a problem. Progress of Wound: Wound is very clean measuring smaller depth is good no sign of infection. Patient still on antibiotic therapy from previous bacteria growth. No odor or signs of infection noted. Subjective Subjective Patient is comfortable with dressing changes will be on his own for 3 to 5 days changing his own dressing going out of town by himself. Objective Data Objective Data As stated above no sign of infection measuring smaller still has depth but looks good Vital Signs: Vital Signs Temp Pulse Resp BP O2 Del Method 95.6 F L 60 16 154/77 H Room Air 10/13/22 10:01 10/13/22 10:01 10/06/22 10:07 10/13/22 10:01 10/06/22 10:07 Oxygen Delivery Method Room Air Lab / Micro Data Micro: Microbiology 09/22/22 10:35 Wound Abcess - Left Foot Gram Stain - Final 09/22/22 10:35 Wound Abcess - Left Foot Wound Culture - Final Staphylococcus aureus 09/22/22 10:35 Wound Abcess - Left Foot Anaerobic Culture - Final Anaerobic cocci Physical Exam Const oriented x3 General Appearance: cooperative Exam Limitations: no limitations Resp normal respiratory effort Effort and Inspection: able to speak in complete sentences Auscultation: clear to auscultation bilaterally Cardio regular rate and regular rhythm Palpation: normal PMI Rate: regular rate Rhythm: regular rhythm GI Auscultation: normoactive bowel sounds Palpation: soft and no hepatosplenomegaly Extremity normal to inspection General Extremity: normal exam except as noted Skin no rashes or lesions noted Wound Narrative: Open wounds with callus around on the right fifth toe plantar left second toe plantar and left great toe plantar with all with open wounds also. Neuro oriented x3 Psych Appearance: grossly normal Speech: normal speech Thought Content: normal thought content Judgement: judgement good Debridement Note Debridement Note Wound debrided: Left plantar foot Laterality: Left Wound Grade/Stage: Stage II Type of Debridement: Excisional debridement Anesthesia Used: 5% Lidocaine Gel Depth: Down to and including healthy tissue Percentage of wound debrided: 100 Instrument Used: 5mm curette Tissue Removed: Fibrin and callus Severity: Fat Layer Exposed Amount of bleeding with debridement: Mild Bleeding Controlled with: Compression and gauze Patient tolerated procedure: Patient tolerated procedure well Post-Debridement Measurements and Additional Note: Post-Debridement Measurements/Treatment - Nurse 1 - General Ulcer Assessment Start: 09/22/22 10:16 Freq: Status: Active Protocol: REMA Activity Type Activity Date Activity User E-sign Co-sign Detail Recorded Client Recorded Date Recorded By Document 09/22/22 10:16 [facility] [id number] 09/22/22 10:18 [facility] Document 09/29/22 10:34 [facility] [id number] 09/29/22 10:41 [facility] Document 10/06/22 10:07 [id number] 10/06/22 10:12 Document 10/13/22 10:01 [place] [id number] 10/13/22 10:03 [place] 09/22/22 09/29/22 10/06/22 10:16 10:34 10:07 - Today's Visit Information Type of service Follow-up Visit Follow-up Visit Follow-up Visit (Physician/REHEATER (Physician/REHEATER (Physician/REHEATER ) ) ) Arrival Mode Ambulatory Ambulatory Ambulatory Transfer Assistance None None None Accompanied by Patient Identification Verified (Name & Yes Yes Yes ) Patient Requires Transmission-Based No No No Precautions Vital Signs Temperature (97.8 F-99.1 F) 96.7 F L 97.3 F L 96.8 F L Temperature Source Temporal Temporal Temporal Pulse Rate (60-100) 67 63 Pulse Location Monitor Monitor Monitor Respiratory Rate (12-18) 16 16 16 Respiratory rate source Observation Observation Observation Oxygen Delivery Method Room Air Room Air Room Air Blood Pressure (90/60-120/80) 135/61 H 115/70 Blood Pressure Mean (mm Hg) 85 85 Source Monitor Monitor Monitor Position Sitting Sitting Sitting Blood Pressure Location Left Arm Left Arm Left Arm History Since Last Visit- (Skip if this is Patient's initial visit) Have you changed medications since your No No No last visit? Any new allergies or adverse reactions No No No Had a fall/change in ADL's that may No No No increase risk of falls Signs or symptoms of abuse and/or No No No neglect since last visit Have you been in the hospital since your No No No last visit? Has dressing in place as prescribed Yes Yes Yes Has compression in place as prescribed Yes N/A N/A Has offloadiing in place as prescribed N/A Yes Yes Experienced any changes in pain level or No No No management Left Footwear Removable Cast Diabetic Shoe Diabetic Shoe Walker/Walking Boot Right Footwear Regular Shoe Diabetic Shoe Diabetic Shoe Pain Scale: 0-10 Numeric Is Patient Pain Free? Yes Yes Yes 10/13/22 10:01 - Today's Visit Information Type of service Follow-up Visit (Physician/REHEATER ) Arrival Mode Ambulatory Transfer Assistance Accompanied by Patient Identification Verified (Name & Yes ) Patient Requires Transmission-Based No Precautions Vital Signs Temperature (97.8 F-99.1 F) 95.6 F L Temperature Source Temporal Pulse Rate (60-100) 60 Pulse Location Monitor Respiratory Rate (12-18) Respiratory rate source Oxygen Delivery Method Blood Pressure (90/60-120/80) 154/77 H Blood Pressure Mean (mm Hg) 102 Source Monitor Position Blood Pressure Location History Since Last Visit- (Skip if this is Patient's initial visit) Have you changed medications since your No last visit? Any new allergies or adverse reactions No Had a fall/change in ADL's that may No increase risk of falls Signs or symptoms of abuse and/or No neglect since last visit Have you been in the hospital since your No last visit? Has dressing in place as prescribed Yes Has compression in place as prescribed N/A Has offloadiing in place as prescribed N/A Experienced any changes in pain level or No management Left Footwear Regular Shoe Right Footwear Regular Shoe Pain Scale: 0-10 Numeric Is Patient Pain Free? No - Nurse 1 - General Ulcer Measurement Start: 09/22/22 10:16 Freq: Status: Active Protocol: Activity Type Activity Date Activity User E-sign Co-sign Detail Recorded Client Recorded Date Recorded By Document 09/22/22 10:16 [facility] [id number] 09/22/22 10:18 [facility] Document 09/29/22 10:34 [facility] [id number] 09/29/22 10:41 [facility] Document 10/06/22 10:07 [id number] 10/06/22 10:12 Document 10/13/22 10:01 [place] [id number] 10/13/22 10:03 [place] 09/22/22 09/29/22 10/06/22 10:16 10:34 10:07 Wound Center Nurse 1 #10 L PLANTAR -Combined with other wound No No No -Current Size (cm) - Length 0.4 0.3 0.4 -Current Size (cm) - Width 0.4 0.5 0.5 -Current Size (cm) - Depth 0.4 0.4 0.1 -Total Square Cm 0.16 0.15 0.20 -Date of Last Picture (Recall this 09/22/22 10/06/22 field) -Photo Taken Yes Yes Yes -Epithelialization None Present Small 1-33% -Tunneling No No No -Undermining/Tunneling Yes No No -Undermining/Tunneling Starts (O'clock 1 ) -Undermining/Tunneling Ends (O'clock) 3 -Maximum Distance (cm) 0.4 -Circular Undermining No No No -Change in Wound Grade/Stage No -Exudate Amt Medium Medium Medium -Exudate Type Serosanguineous Serosanguineous Serosanguineous -Wound Margin Thickened Distinct, Distinct, Outline Outline Attached Attached -Granulation Amt Medium (34-66%) Large (67-100%) Large (67-100%) -Granulation Quality Red Red Pale -Slough/Fibrin No No Yes -Necrosis Amt Medium (34-66%) None Present (0 Small (1-33%) %) -Necrotic Tissue Type Adherent Slough Adherent Slough -Structure Exposed N/A -Texture (Angie-wound Skin Appearance) Assessed,Callus Assessed,Callus Assess ed,Callus -Moisture (Angie-wound Skin Appearance) Assessed,Dry/ No Abnormality, Assessed,Dry/ Scaly Assessed Scaly -Color (Angie-wound Skin Appearance) Assessed No Abnormality, Assessed Assessed -Temperature (Angie-wound Skin No Abnormality No Abnormality No Abnormality Appearance) (Pt Warm) (Pt Warm) (Pt Warm) -Tenderness on Palpation (Angie-wound No No No Skin Appearance) -Ulcer Cleansing Rinsed/ Rinsed/ Rinsed/ Irrigated with Irrigated with Irrigated with Saline Saline Saline -Foul Odor after Cleansing No No No -Anesthetic Used 5% Lidocaine 5% Lidocaine 5% Lidocaine Gel Gel Gel 10/13/22 10:01 Wound Center Nurse 1 #10 L PLANTAR -Combined with other wound No -Current Size (cm) - Length 0.3 -Current Size (cm) - Width 0.4 -Current Size (cm) - Depth 0.2 -Total Square Cm 0.12 -Date of Last Picture (Recall this field) -Photo Taken No -Epithelialization -Tunneling No -Undermining/Tunneling No -Undermining/Tunneling Starts (O'clock ) -Undermining/Tunneling Ends (O'clock) -Maximum Distance (cm) -Circular Undermining No -Change in Wound Grade/Stage No -Exudate Amt Medium -Exudate Type Serosanguineous -Wound Margin Distinct, Outline Attached -Granulation Amt Medium (34-66%) -Granulation Quality [place] -Slough/Fibrin Yes -Necrosis Amt Medium (34-66%) -Necrotic Tissue Type Adherent Slough -Structure Exposed N/A -Texture (Angie-wound Skin Appearance) No Abnormality, Assessed -Moisture (Angie-wound Skin Appearance) No Abnormality, Assessed -Color (Angie-wound Skin Appearance) No Abnormality, Assessed -Temperature (Angie-wound Skin No Abnormality Appearance) (Pt Warm) -Tenderness on Palpation (Angie-wound No Skin Appearance) -Ulcer Cleansing Rinsed/ Irrigated with Saline -Foul Odor after Cleansing No -Anesthetic Used 4% Lidocaine Solution,5% Lidocaine Gel WC - Nurse 2 - General Ulcer CM Notes Start: 09/22/22 10:16 Freq: Status: Active Protocol: Activity Type Activity Date Activity User E-sign Co-sign Detail Recorded Client Recorded Date Recorded By Document 09/22/22 10:31 MW [id number] 09/22/22 10:45 MW Document 09/29/22 10:48 MW [id number] 09/29/22 10:55 MW Document 10/06/22 10:24 MW [id number] 10/06/22 10:29 MW Document 10/13/22 10:04 MW [id number] 10/13/22 10:08 MW 11/08/0509/29/22 10/06/22 10:31 10:48 10:24 Wound Center Nurse 2 #10 L PLANTAR -Time 10: 10:53 10:24 -Correct Patient Yes Yes Yes -Correct Side, Site, Position Yes Yes Yes -Correct Procedure Yes Yes Yes -Procedure Performed Yes Yes Yes -Type of Procedure Debridement Debridement Debridement -Clinical Debridement Subcutaneous Subcutaneous Subcutaneous -Tissue Removed Epidermis, Subcutaneous Subcutaneous Subcutaneous -Post Debridement (cm) - Length 0.5 0.4 0.4 -Post Debridement (cm) - Width 0.8 0.5 0.7 -Post Debridement (cm) - Depth 0.2 0.2 0.2 -Total Square (Post) (cm) 0.40 0.20 0.28 -Area of Debridement (cm) - Length 0.5 0.4 0.4 -Area of Debridement (cm) - Width 0.8 0.5 0.7 -Total Square (Area) (cm) 0.40 0.20 0.28 -Tunneling No No No -Undermining/Tunneling No No No -Circular Undermining No No No -Wound/Ulcer Outcome Not Healed Not Healed Not Healed -Ulcer Cleansing Rinsed/ Rinsed/ Rinsed/ Irrigated with Irrigated with Irrigated with Saline Saline Saline -Foul Odor after Cleansing No No No -Bioengineered Tissue No No No -Bleeding Controlled with Pressure Pressure Pressure -Treatment Response Procedure Procedure Procedure Tolerated Well Tolerated Well Tolerated Well -Offloading No No No -Debridement - Subq, 1st 20sq cm Yes Yes Yes Pain Scale: 0-10 Numeric Is Patient Pain Free? Yes Yes Yes 10/13/22 10:04 Wound Center Nurse 2 #10 L PLANTAR -Time 10:05 -Correct Patient Yes -Correct Side, Site, Position Yes -Correct Procedure Yes -Procedure Performed Yes -Type of Procedure Debridement -Clinical Debridement Subcutaneous -Tissue Removed Subcutaneous -Post Debridement (cm) - Length 0.3 -Post Debridement (cm) - Width 0.5 -Post Debridement (cm) - Depth 0.2 -Total Square (Post) (cm) 0.15 -Area of Debridement (cm) - Length 0.3 -Area of Debridement (cm) - Width 0.5 -Total Square (Area) (cm) 0.15 -Tunneling No -Undermining/Tunneling No -Circular Undermining No -Wound/Ulcer Outcome Not Healed -Ulcer Cleansing Rinsed/ Irrigated with Saline -Foul Odor after Cleansing No -Bioengineered Tissue No -Bleeding Controlled with Pressure -Treatment Response Procedure Tolerated Well -Offloading No -Debridement - Subq, 1st 20sq cm Yes Pain Scale: 0-10 Numeric Is Patient Pain Free? Yes - Nurse 3 - General Ulcer D/C NN Start: 09/22/22 10:16 Freq: Status: Active Protocol: Activity Type Activity Date Activity User E-sign Co-sign Detail Recorded Client Recorded Date Recorded By Document 09/22/22 11:00 MA [id number] 09/22/22 11:01 MA Document 09/29/22 11:06 [facility] [id number] 09/29/22 11:07 [facility] Document 10/06/22 10:38 [facility] [id number] 10/06/22 10:38 [facility] Document 10/13/22 10:19 [facility] [id number] 10/13/22 10:20 [facility] 09/22/22 09/29/22 10/06/22 11:00 11:06 10:38 Wound Care Nurse 3 #10 L PLANTAR -Ulcer Cleansing Rinsed/ Rinsed/ Rinsed/ Irrigated with Irrigated with Irrigated with Saline Saline Saline -Foul Odor after Cleansing No No No -Negative Pressure Wound Therapy N/A -Primary Dressing Applied Promogran NonAdherent NonAdherent Contact Layer, Contact Layer, Promogran Promogran Anne Marie Matter Anne Marie Matter -Other Dressing stasis pad STASIS 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 Yes Yes Yes - Visit Discharge Discharge Condition Stable Stable Stable Ambulatory Status Ambulatory Ambulatory Transportation Private Auto Private Auto Private Auto Accompanied by Medication Reconcilliation completed & Yes provided to patient/care provider Clinical Summary of Care Provided Yes 10/13/22 10:19 Wound Care Nurse 3 #10 L PLANTAR -Ulcer Cleansing Rinsed/ Irrigated with Saline -Foul Odor after Cleansing No -Negative Pressure Wound Therapy -Primary Dressing Applied NonAdherent Contact Layer, Promogran Anne Marie Matter -Other Dressing STASIS PAD -Primary Dressing Covered/Secured with Dry Gauze & Roll Gauze, Secured with Tape -Other Covering -Promogran -Promogran Anne Marie Matter 1 Treatment Response Procedure Tolerated Well Pain Scale: 0-10 Numeric Is Patient Pain Free? 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 (2) Decubitus ulcer limited to breakdown of skin (stage 2): CODE(S): L89.92 - Pressure ulcer of unspecified site, stage 2 QUALIFIERS: Pressure injury location: toe Laterality: left Qualified Code(s): L89.892 - Pressure ulcer of other site, stage 2 PLAN: Wash foot with antibacterial soap pat dry apply the Anne Marie to wound base apply stasis pad under wound with Adaptic over top gauze and tape off load is m uch as possible follow-up in 1 week Apply stasis pad to second toe plantar side Continue antibiotic therapy REBECA for bacteria and anaerobes
== END 2022-10-13 23:59 | disposition home or self-care (01) ==
LOC: WC 09:45
PROVIDERS: PCP Family Medicine; Referring Provider Nurse Practitioner; Visit Provider Nurse Practitioner
DX: E08.621 Diabetes mellitus due to underlying condition with foot ulcer (principal); L89.892 Pressure ulcer of other site, stage 2; L97.526 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 involvement without evidence of necrosis
CPT/HCPCS: 11042; 73630; 73660; 87070; 87075; 87077; 87186; 87205

== ENCOUNTER 2022-11-10 09:45 | Outpatient (RCR) | payer MEDICARE, OTHER, SELFPAY ==
[2022-10-14 00:27] VITALS: BP 154/77; PULSE 60; RESP 16; TEMP 35.3
[2022-10-20 09:42] VITALS: BP 129/63; PULSE 63; TEMP 36.6
--- NOTE | 2022-10-20 11:52 | PCM.WC.PN ---
History of Present Illness Date of Service: 10/20/22 Chief Complaint: Follow-up on right fifth toe plantar side left plantar great toe and left plantar second toe. History of Wound: 76-year-old white male with previous history of amputations of the toes. Appears with increase in wounds to the toes for the last 6 weeks at least. He has been seen by his own pneumatic system conveyor operator Dr. Nguyen and he referred him to here. He is currently using Aquacel to his wounds. His usually helps with dressing changes without a problem. Progress of Wound: Plantar left foot looks good smaller measurements still gets a callus around the edge. Subjective Subjective Patient is pleased with progress Objective Data Objective Data We will continue using the Anne Marie seems to be keeping it clean and getting it closed. Vital Signs: Vital Signs Temp Pulse Resp BP 97.9 F 63 16 129/63 H 10/20/22 09:42 10/20/22 09:42 10/14/22 00:27 10/20/22 09:42 Lab / Micro Data Attestation: I reviewed the patient's lab results. Physical Exam Const oriented x3 General Appearance: cooperative Exam Limitations: no limitations Resp normal respiratory effort Effort and Inspection: able to speak in complete sentences Auscultation: clear to auscultation bilaterally Cardio regular rate and regular rhythm Palpation: normal PMI Rate: regular rate Rhythm: regular rhythm GI Auscultation: normoactive bowel sounds Palpation: soft and no hepatosplenomegaly Extremity normal to inspection General Extremity: normal exam except as noted Skin no rashes or lesions noted Wound Narrative: Open wounds with callus around on the right fifth toe plantar left second toe plantar and left great toe plantar with all with open wounds also. Neuro oriented x3 Psych Appearance: grossly normal Speech: normal speech Thought Content: normal thought content Judgement: judgement good Debridement Note Debridement Note Wound debrided: Left plantar foot Wound Grade/Stage: ulcer nonpressure Type of Debridement: Excisional debridement Anesthesia Used: 5% Lidocaine Gel Depth: Down to and including healthy tissue and in the subcutaneous layer Percentage of wound debrided: 100 Instrument Used: 5mm curette Tissue Removed: Fibrin and callus Severity: Limited To Skin Breakdown Amount of bleeding with debridement: Mild Bleeding Controlled with: Compression and gauze Patient tolerated procedure: Patient tolerated procedure well Post-Debridement Measurements and Additional Note: Post-Debridement Measurements/Treatment WC - Nurse 1 - General Ulcer Assessment Start: 10/20/22 09:42 Freq: Status: Active Protocol: REMA Activity Type Activity Date Activity User E-sign Co-sign Detail Recorded Client Recorded Date Recorded By Document 10/20/22 09:42 OCTAVIO [id number] 10/20/22 09:50 OCTAVIO 10/20/22 09:42 WC - Today's Visit Information Type of service Follow-up Visit (Physician/CARTON MAKING MACHINE OPERATOR ) Arrival Mode Ambulatory Patient Identification Verified (Name & Yes ) Patient Requires Transmission-Based No Precautions Safety Precautions NA Vital Signs Temperature (97.8 F-99.1 F) 97.9 F Temperature Source Temporal Pulse Rate (60-100) 63 Pulse Location Monitor Blood Pressure (90/60-120/80) 129/63 H Blood Pressure Mean (mm Hg) 85 Source Monitor History Since Last Visit- (Skip if this is Patient's initial visit) Have you changed medications since your No last visit? Any new allergies or adverse reactions No Had a fall/change in ADL's that may No increase risk of falls Signs or symptoms of abuse and/or No neglect since last visit Have you been in the hospital since your No last visit? Has dressing in place as prescribed Yes Has compression in place as prescribed Yes Has offloadiing in place as prescribed Yes Experienced any changes in pain level or No management Left Footwear Removable Cast Walker/Walking Boot Right Footwear Regular Shoe Pain Scale: 0-10 Numeric Is Patient Pain Free? Yes - Nurse 1 - General Ulcer Measurement Start: 10/20/22 09:42 Freq: Status: Active Protocol: Activity Type Activity Date Activity User E-sign Co-sign Detail Recorded Client Recorded Date Recorded By Document 10/20/22 09:42 OCTAVIO [id number] 10/20/22 09:50 OCTAVIO 10/20/22 09:42 Wound Center Nurse 1 #10 L PLANTAR -Combined with other wound No -Current Size (cm) - Length 0.3 -Current Size (cm) - Width 0.4 -Current Size (cm) - Depth 0.2 -Total Square Cm 0.12 -Photo Taken No -Tunneling No -Undermining/Tunneling No -Circular Undermining No -Change in Wound Grade/Stage No -Exudate Amt Small -Exudate Type Serosanguineous -Wound Margin Distinct, Outline Attached -Granulation Amt Medium (34-66%) -Granulation Quality Pale,Mershon -Slough/Fibrin Yes -Necrosis Amt Small (1-33%) -Necrotic Tissue Type Adherent Slough -Structure Exposed N/A -Texture (Angie-wound Skin Appearance) Assessed,Callus -Moisture (Angie-wound Skin Appearance) No Abnormality, Assessed -Color (Angie-wound Skin Appearance) No Abnormality, Assessed -Temperature (Angie-wound Skin No Abnormality Appearance) (Pt Warm) -Tenderness on Palpation (Angie-wound No Skin Appearance) -Ulcer Cleansing Rinsed/ Irrigated with Saline -Foul Odor after Cleansing No -Anesthetic Used 5% Lidocaine Gel WC - Nurse 2 - General Ulcer CM Notes Start: 10/20/22 09:42 Freq: Status: Active Protocol: Activity Type Activity Date Activity User E-sign Co-sign Detail Recorded Client Recorded Date Recorded By Document 10/20/22 10:03 MW [id number] 10/20/22 10:11 MW 10/20/22 10:03 Wound Center Nurse 2 -Time 10:03 -Correct Patient Yes -Correct Side, Site, Position Yes -Correct Procedure Yes -Procedure Performed Yes -Type of Procedure Debridement -Clinical Debridement Subcutaneous -Tissue Removed Subcutaneous -Post Debridement (cm) - Length 0.2 -Post Debridement (cm) - Width 0.7 -Post Debridement (cm) - Depth 0.2 -Total Square (Post) (cm) 0.14 -Area of Debridement (cm) - Length 0.2 -Area of Debridement (cm) - Width 0.7 -Total Square (Area) (cm) 0.14 -Tunneling No -Undermining/Tunneling No -Circular Undermining No -Wound/Ulcer Outcome Not Healed -Ulcer Cleansing Rinsed/ Irrigated with Saline -Foul Odor after Cleansing No -Bioengineered Tissue No -Bleeding Controlled with Pressure -Treatment Response Procedure Tolerated Well -Offloading No -Debridement - Subq, 1st 20sq cm Yes Pain Scale: 0-10 Numeric Is Patient Pain Free? Yes - Nurse 3 - General Ulcer D/C NN Start: 10/20/22 09:42 Freq: Status: Active Protocol: Activity Type Activity Date Activity User E-sign Co-sign Detail Recorded Client Recorded Date Recorded By Document 10/20/22 10:23 [facility] [id number] 10/20/22 10:24 BMF 10/20/22 10:23 Wound Care Nurse 3 #10 L PLANTAR -Ulcer Cleansing Rinsed/ Irrigated with Saline -Foul Odor after Cleansing No -Primary Dressing Applied NonAdherent Contact Layer, Promogran Anne Marie Matter -Primary Dressing Covered/Secured with Dry Gauze & Roll Gauze, Secured with Tape -Promogran Anne Marie Matter 1 Treatment Response Procedure Tolerated Well Pain Scale: 0-10 Numeric Is Patient Pain Free? 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 Continue antibiotic therapy REBECA for bacteria and anaerobes
[2022-10-27 09:47] VITALS: BP 140/75; PULSE 80; RESP 16; TEMP 35.4
--- NOTE | 2022-10-27 12:23 | PN.PCM_ITS ---
History of Present Illness Date of Service: 10/27/22 Chief Complaint: Follow-up on right fifth toe plantar side left plantar great toe and left plantar second toe. History of Wound: 76-year-old white male with previous history of amputations of the toes. Appears with increase in wounds to the toes for the last 6 weeks at least. He has been seen by his own medical supervisor Dr. Nguyen and he referred him to here. He is currently using Aquacel to his wounds. His usually helps with dressing changes without a problem. Progress of Wound: Plantar left foot looks good measurements still same gets a callus around the edge. We will culture this week suspicious of smell. Subjective Subjective is suspicious of the smell we will suggested a culture be done Objective Data Objective Data The measurements are smaller I do not see any sign of infection still gets a big callus around the edge that I debrided again. Vital Signs: Vital Signs Temp Pulse Resp BP O2 Del Method 95.8 F L 80 16 140/75 H Room Air 10/27/22 09:47 10/27/22 09:47 10/27/22 09:47 10/27/22 09:47 10/27/22 09:47 Oxygen Delivery Method Room Air Lab / Micro Data Attestation: I reviewed the patient's lab results. Physical Exam Const oriented x3 General Appearance: cooperative Exam Limitations: no limitations Resp normal respiratory effort Effort and Inspection: able to speak in complete sentences Auscultation: clear to auscultation bilaterally Cardio regular rate and regular rhythm Palpation: normal PMI Rate: regular rate Rhythm: regular rhythm GI Auscultation: normoactive bowel sounds Palpation: soft and no hepatosplenomegaly Extremity normal to inspection General Extremity: normal exam except as noted Skin no rashes or lesions noted Wound Narrative: Open wounds with callus around on the right fifth toe plantar left second toe plantar and left great toe plantar with all with open wounds also. Neuro oriented x3 Psych Appearance: grossly normal Speech: normal speech Thought Content: normal thought content Judgement: judgement good Debridement Note Debridement Note Wound debrided: Left plantar foot Wound Grade/Stage: Stage II Type of Debridement: Excisional debridement Anesthesia Used: 5% Lidocaine Gel Depth: in the subcutaneous layer Percentage of wound debrided: 100 Instrument Used: 7mm curette Tissue Removed: Callus and fibrin Severity: Fat Layer Exposed Amount of bleeding with debridement: Mild Bleeding Controlled with: Compression and gauze Patient tolerated procedure: Patient tolerated procedure well Post-Debridement Measurements and Additional Note: Post-Debridement Measurements/Treatment - Nurse 1 - General Ulcer Assessment Start: 10/20/22 09:42 Freq: Status: Active Protocol: REMA Activity Type Activity Date Activity User E-sign Co-sign Detail Recorded Client Recorded Date Recorded By Document 10/20/22 09:42 AK [id number] 10/20/22 09:50 AK Document 10/27/22 09:47 BMF [id number] 10/27/22 09:51 BMF 10/20/22 10/27/22 09:42 09:47 WC - Today's Visit Information Type of service Follow-up Visit Follow-up Visit (Physician/NURSING STAFFING COORDINATOR (Physician/NURSING STAFFING COORDINATOR ) ) Arrival Mode Ambulatory Ambulatory Transfer Assistance None Patient Identification Verified (Name & Yes Yes ) Patient Requires Transmission-Based No No Precautions Safety Precautions NA Vital Signs Temperature (97.8 F-99.1 F) 97.9 F 95.8 F L Temperature Source Temporal Temporal Pulse Rate (60-100) 63 80 Pulse Location Monitor Monitor Respiratory Rate (12-18) 16 Respiratory rate source Observation Oxygen Delivery Method Room Air Blood Pressure (90/60-120/80) 129/63 H 140/75 H Blood Pressure Mean (mm Hg) 85 96 Source Monitor Monitor Position Sitting Blood Pressure Location Left Arm History Since Last Visit- (Skip if this is Patient's initial visit) Have you changed medications since your No No last visit? Any new allergies or adverse reactions No No Had a fall/change in ADL's that may No No increase risk of falls Signs or symptoms of abuse and/or No No neglect since last visit Have you been in the hospital since your No No last visit? Has dressing in place as prescribed Yes Yes Has compression in place as prescribed Yes N/A Has offloadiing in place as prescribed Yes Yes Experienced any changes in pain level or No No management Left Footwear Removable Cast Removable Cast Walker/Walking Walker/Walking Boot Boot Right Footwear Regular Shoe Diabetic Shoe Pain Scale: 0-10 Numeric Is Patient Pain Free? Yes Yes JONNY - Nurse 1 - General Ulcer Measurement Start: 10/20/22 09:42 Freq: Status: Active Protocol: Activity Type Activity Date Activity User E-sign Co-sign Detail Recorded Client Recorded Date Recorded By Document 10/20/22 09:42 AK [id number] 10/20/22 09:50 AK Document 10/27/22 09:47 BM [id number] 10/27/22 09:51 BM 10/20/22 10/27/22 09:42 09:47 Wound Center Nurse 1 #10 L PLANTAR -Combined with other wound No No -Current Size (cm) - Length 0.3 0.3 -Current Size (cm) - Width 0.4 0.4 -Current Size (cm) - Depth 0.2 0.2 -Total Square Cm 0.12 0.12 -Date of Last Picture (Recall this 10/27/22 field) -Photo Taken No Yes -Epithelialization None Present -Tunneling No No -Undermining/Tunneling No No -Circular Undermining No No -Change in Wound Grade/Stage No -Exudate Amt Small Small -Exudate Type Serosanguineous Serosanguineous -Wound Margin Distinct, Distinct, Outline Outline Attached Attached -Granulation Amt Medium (34-66%) Large (67-100%) -Granulation Quality Pale,[place] -Slough/Fibrin Yes Yes -Necrosis Amt Small (1-33%) Small (1-33%) -Necrotic Tissue Type Adherent Slough Adherent Slough -Structure Exposed N/A -Texture (Angie-wound Skin Appearance) Assessed,Callus Assessed, Scarring -Moisture (Angie-wound Skin Appearance) No Abnormality, Assessed,Dry/ Assessed Scaly -Color (Angie-wound Skin Appearance) No Abnormality, Assessed Assessed -Temperature (Angie-wound Skin No Abnormality No Abnormality Appearance) (Pt Warm) (Pt Warm) -Tenderness on Palpation (Angie-wound No No Skin Appearance) -Ulcer Cleansing Rinsed/ Rinsed/ Irrigated with Irrigated with Saline Saline -Foul Odor after Cleansing No No -Anesthetic Used 5% Lidocaine 5% Lidocaine Gel Gel WC - Nurse 2 - General Ulcer CM Notes Start: 10/20/22 09:42 Freq: Status: Active Protocol: Activity Type Activity Date Activity User E-sign Co-sign Detail Recorded Client Recorded Date Recorded By Document 10/20/22 10:03 MW [id number] 10/20/22 10:11 MW Document 10/27/22 09:59 MW [id number] 10/27/22 10:05 MW 10/20/22 10/27/22 10:03 09:59 Wound Center Nurse 2 #10 L PLANTAR -Time 10:03 10:02 -Correct Patient Yes Yes -Correct Side, Site, Position Yes Yes -Correct Procedure Yes Yes -Procedure Performed Yes Yes -Type of Procedure Debridement Debridement -Clinical Debridement Subcutaneous Subcutaneous -Tissue Removed Subcutaneous Subcutaneous -Post Debridement (cm) - Length 0.2 0.3 -Post Debridement (cm) - Width 0.7 0.4 -Post Debridement (cm) - Depth 0.2 0.2 -Total Square (Post) (cm) 0.14 0.12 -Area of Debridement (cm) - Length 0.2 0.3 -Area of Debridement (cm) - Width 0.7 0.4 -Total Square (Area) (cm) 0.14 0.12 -Tunneling No No -Undermining/Tunneling No No -Circular Undermining No No -Wound/Ulcer Outcome Not Healed Not Healed -Ulcer Cleansing Rinsed/ Rinsed/ Irrigated with Irrigated with Saline Saline -Foul Odor after Cleansing No No -Bioengineered Tissue No No -Bleeding Controlled with Pressure Pressure -Treatment Response Procedure Procedure Tolerated Well Tolerated Well -Offloading No No -Debridement - Subq, 1st 20sq cm Yes Yes Pain Scale: 0-10 Numeric Is Patient Pain Free? Yes Yes WC - Nurse 3 - General Ulcer D/C NN Start: 10/20/22 09:42 Freq: Status: Active Protocol: Activity Type Activity Date Activity User E-sign Co-sign Detail Recorded Client Recorded Date Recorded By Document 10/20/22 10:23 [facility] [id number] 10/20/22 10:24 [facility] Document 10/27/22 10:09 [facility] [id number] 10/27/22 10:10 [facility] 10/20/22 10/27/22 10:23 10:09 Wound Care Nurse 3 #10 L PLANTAR -Ulcer Cleansing Rinsed/ Rinsed/ Irrigated with Irrigated with Saline Saline -Foul Odor after Cleansing No No -Primary Dressing Applied NonAdherent NonAdherent Contact Layer, Contact Layer, Promogran Promogran Anne Marie Matter Anne Marie Matter -Other Dressing stasis pad; drsg per ak production support consultant -Primary Dressing Covered/Secured with Dry Gauze & Dry Gauze & Roll Gauze, Roll Gauze, Secured with Secured with Tape Tape -Promogran Anne Marie Matter 1 1 Treatment Response Procedure Procedure Tolerated Well Tolerated Well Pain Scale: 0-10 Numeric Is Patient Pain Free? 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 Cultures obtained will call with results
[2022-11-03 10:09] VITALS: BP 145/69; PULSE 82; TEMP 36
--- NOTE | 2022-11-03 11:39 | PCM.WC.PN ---
History of Present Illness Date of Service: 11/03/22 Chief Complaint: Follow-up on right fifth toe plantar side left plantar great toe and left plantar second toe. History of Wound: 76-year-old white male with previous history of amputations of the toes. Appears with increase in wounds to the toes for the last 6 weeks at least. He has been seen by his own boat loader helper Dr. Nguyen and he referred him to here. He is currently using Aquacel to his wounds. His usually helps with dressing changes without a problem. Progress of Wound: Plantar left foot looks good measurements still same gets a callus around the edge. Cultures were positive patient was started on vancomycin. Measurements are about the same we will see how the works with the antibiotic to make it smaller Subjective Subjective Still pleased with outcomes Objective Data Objective Data We will continue same dressing change Vital Signs: Vital Signs Temp Pulse Resp BP O2 Del Method 96.8 F L 82 16 145/69 H Room Air 11/03/22 10:09 11/03/22 10:09 10/27/22 09:47 11/03/22 10:09 10/27/22 09:47 Oxygen Delivery Method Room Air Lab / Micro Data Attestation: I reviewed the patient's lab results. Micro: Microbiology 10/27/22 10:00 Wound Abcess - Left Foot Gram Stain - Final 10/27/22 10:00 Wound Abcess - Left Foot Wound Culture - Final Staphylococcus lugdunensis 10/27/22 10:00 Wound Abcess - Left Foot Anaerobic Culture - Final No anaerobic bacteria isolated. Physical Exam Const oriented x3 General Appearance: cooperative Exam Limitations: no limitations Resp normal respiratory effort Effort and Inspection: able to speak in complete sentences Auscultation: clear to auscultation bilaterally Cardio regular rate and regular rhythm Palpation: normal PMI Rate: regular rate Rhythm: regular rhythm GI Auscultation: normoactive bowel sounds Palpation: soft and no hepatosplenomegaly Extremity normal to inspection General Extremity: normal exam except as noted Skin no rashes or lesions noted Wound Narrative: Open wounds with callus around on the right fifth toe plantar left second toe plantar and left great toe plantar with all with open wounds also. Neuro oriented x3 Psych Appearance: grossly normal Speech: normal speech Thought Content: normal thought content Judgement: judgement good Debridement Note Debridement Note Wound debrided: Left plantar foot Wound Grade/Stage: Stage II Type of Debridement: Excisional debridement Anesthesia Used: 5% Lidocaine Gel Depth: Down to and including healthy tissue Percentage of wound debrided: 100 Instrument Used: 7mm curette and - (Nippers) Tissue Removed: Callus and fibrin Amount of bleeding with debridement: Mild Bleeding Controlled with: Compression and gauze Patient tolerated procedure: Patient tolerated procedure well Post-Debridement Measurements and Additional Note: Post-Debridement Measurements/Treatment - Nurse 1 - General Ulcer Assessment Start: 10/20/22 09:42 Freq: Status: Active Protocol: REMA Activity Type Activity Date Activity User E-sign Co-sign Detail Recorded Client Recorded Date Recorded By Document 10/20/22 09:42 UT [id number] 10/20/22 09:50 UT Document 10/27/22 09:47 [facility] [id number] 10/27/22 09:51 [facility] Document 11/03/22 10:09 UT [id number] 11/03/22 10:11 UT 10/20/22 10/27/22 11/03/22 09:42 09:47 10:09 - Today's Visit Information Type of service Follow-up Visit Follow-up Visit Follow-up Visit (Physician/DESIGN ENGINEER [employer] (Physician/DESIGN ENGINEER [employer] (Physician/DESIGN ENGINEER [employer] ) ) ) Arrival Mode Ambulatory Ambulatory Ambulatory Transfer Assistance None Patient Identification Verified (Name & Yes Yes Yes ) Patient Requires Transmission-Based No No No Precautions Safety Precautions NA Vital Signs Temperature (97.8 F-99.1 F) 97.9 F 95.8 F L 96.8 F L Temperature Source Temporal Temporal Temporal Pulse Rate (60-100) 63 80 82 Pulse Location Monitor Monitor Monitor Respiratory Rate (12-18) 16 Respiratory rate source Observation Oxygen Delivery Method Room Air Blood Pressure (90/60-120/80) 129/63 H 140/75 H 145/69 H Blood Pressure Mean (mm Hg) 85 96 94 Source Monitor Monitor Monitor Position Sitting Blood Pressure Location Left Arm History Since Last Visit- (Skip if this is Patient's initial visit) Have you changed medications since your No No No last visit? Any new allergies or adverse reactions No No No Had a fall/change in ADL's that may No No No increase risk of falls Signs or symptoms of abuse and/or No No No neglect since last visit Have you been in the hospital since your No No No last visit? Has dressing in place as prescribed Yes Yes Yes Has compression in place as prescribed Yes N/A No Has offloadiing in place as prescribed Yes Yes N/A Experienced any changes in pain level or No No No management Left Footwear Removable Cast Removable Cast Regular Shoe Walker/Walking Walker/Walking Boot Boot Right Footwear Regular Shoe Diabetic Shoe Regular Shoe Pain Scale: 0-10 Numeric Is Patient Pain Free? Yes Yes Yes WC - Nurse 1 - General Ulcer Measurement Start: 10/20/22 09:42 Freq: Status: Active Protocol: Activity Type Activity Date Activity User E-sign Co-sign Detail Recorded Client Recorded Date Recorded By Document 10/20/22 09:42 AK [id number] 10/20/22 09:50 AK Document 10/27/22 09:47 [facility] [id number] 10/27/22 09:51 BM Document 11/03/22 10:09 UT [id number] 11/03/22 10:11 UT 10/20/22 10/27/22 11/03/22 09:42 09:47 10:09 Wound Center Nurse 1 #10 L PLANTAR -Combined with other wound No No No -Current Size (cm) - Length 0.3 0.3 0.3 -Current Size (cm) - Width 0.4 0.4 0.2 -Current Size (cm) - Depth 0.2 0.2 0.2 -Total Square Cm 0.12 0.12 0.06 -Date of Last Picture (Recall this 10/27/22 field) -Photo Taken No Yes Yes -Epithelialization None Present -Tunneling No No No -Undermining/Tunneling No No No -Circular Undermining No No No -Change in Wound Grade/Stage No No -Exudate Amt Small Small Medium -Exudate Type Serosanguineous Serosanguineous Serosanguineous -Wound Margin Distinct, Distinct, Distinct, Outline Outline Outline Attached Attached Attached -Granulation Amt Medium (34-66%) Large (67-100%) Small (1-33%) -Granulation Quality Pale,Bowlegs Bowlegs Bowlegs -Slough/Fibrin Yes Yes Yes -Necrosis Amt Small (1-33%) Small (1-33%) Small (1-33%) -Necrotic Tissue Type Adherent Slough Adherent Slough Adherent Slough -Structure Exposed N/A N/A -Texture (Angie-wound Skin Appearance) Assessed,Callus Assessed, No Abnormality, Scarring Assessed -Moisture (Angie-wound Skin Appearance) No Abnormality, Assessed,Dry/ No Abnormality, Assessed Scaly Assessed -Color (Angie-wound Skin Appearance) No Abnormality, Assessed No Abnormality, Assessed Assessed -Temperature (Angie-wound Skin No Abnormality No Abnormality No Abnormality Appearance) (Pt Warm) (Pt Warm) (Pt Warm) -Tenderness on Palpation (Angie-wound No No No Skin Appearance) -Ulcer Cleansing Rinsed/ Rinsed/ Soap and Water Irrigated with Irrigated with Saline Saline -Foul Odor after Cleansing No No No -Anesthetic Used 5% Lidocaine 5% Lidocaine 5% Lidocaine Gel Gel Gel WC - Nurse 2 - General Ulcer CM Notes Start: 10/20/22 09:42 Freq: Status: Active Protocol: Activity Type Activity Date Activity User E-sign Co-sign Detail Recorded Client Recorded Date Recorded By Document 10/20/22 10:03 MW [id number] 10/20/22 10:11 MW Document 10/27/22 09:59 MW [id number] 10/27/22 10:05 MW Document 11/03/22 10:15 MW [id number] 11/03/22 10:22 MW 10/20/22 10/27/22 11/03/22 10:03 09:59 10:15 Wound Center Nurse 2 #10 L PLANTAR -Time 10:03 10:02 10:16 -Correct Patient Yes Yes Yes -Correct Side, Site, Position Yes Yes Yes -Correct Procedure Yes Yes Yes -Procedure Performed Yes Yes Yes -Type of Procedure Debridement Debridement Incision & Drainage -Clinical Debridement Subcutaneous Subcutaneous Subcutaneous -Tissue Removed Subcutaneous Subcutaneous Subcutaneous -Post Debridement (cm) - Length 0.2 0.3 0.3 -Post Debridement (cm) - Width 0.7 0.4 0.5 -Post Debridement (cm) - Depth 0.2 0.2 0.2 -Total Square (Post) (cm) 0.14 0.12 0.15 -Area of Debridement (cm) - Length 0.2 0.3 0.3 -Area of Debridement (cm) - Width 0.7 0.4 0.5 -Total Square (Area) (cm) 0.14 0.12 0.15 -Tunneling No No No -Undermining/Tunneling No No No -Circular Undermining No No No -Wound/Ulcer Outcome Not Healed Not Healed Not Healed -Ulcer Cleansing Rinsed/ Rinsed/ Rinsed/ Irrigated with Irrigated with Irrigated with Saline Saline Saline -Foul Odor after Cleansing No No No -Bioengineered Tissue No No No -Bleeding Controlled with Pressure Pressure Pressure -Treatment Response Procedure Procedure Procedure Not Tolerated Well Tolerated Well Tolerated Well -Offloading No No No -Debridement - Subq, 1st 20sq cm Yes Yes Yes Pain Scale: 0-10 Numeric Is Patient Pain Free? Yes Yes Yes - Nurse 3 - General Ulcer D/C NN Start: 10/20/22 09:42 Freq: Status: Active Protocol: Activity Type Activity Date Activity User E-sign Co-sign Detail Recorded Client Recorded Date Recorded By Document 10/20/22 10:23 [facility] [id number] 10/20/22 10:24 [facility] Document 10/27/22 10:09 [facility] [id number] 10/27/22 10:10 [facility] Document 11/03/22 11:17 AK [id number] 11/03/22 11:18 AK 10/20/22 10/27/22 11/03/22 10:23 10:09 11:17 Wound Care Nurse 3 #10 L PLANTAR -Ulcer Cleansing Rinsed/ Rinsed/ Rinsed/ Irrigated with Irrigated with Irrigated with Saline Saline Saline -Foul Odor after Cleansing No No No -Negative Pressure Wound Therapy N/A -Primary Dressing Applied NonAdherent NonAdherent Promogran Contact Layer, Contact Layer, Promogran Promogran Anne Marie Matter Anne Marie Matter -Other Dressing stasis pad; drsg per ak division plant engineer -Primary Dressing Covered/Secured with Dry Gauze & Dry Gauze & Dry Gauze & Roll Gauze, Roll Gauze, Roll Gauze, Secured with Secured with Secured with Tape Tape Tape -Promogran 1 -Promogran Anne Marie Matter 1 1 Treatment Response Procedure Procedure Tolerated Well Tolerated Well Pain Scale: 0-10 Numeric Is Patient Pain Free? 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 Continue vancomycin as prescribed
[2022-11-10 09:44] VITALS: BP 152/86; PULSE 75; TEMP 36.1
--- NOTE | 2022-11-10 11:53 | PN.PCM_ITS ---
History of Present Illness Date of Service: 11/10/22 Chief Complaint: Follow-up on right fifth toe plantar side left plantar great toe and left plantar second toe. History of Wound: 76-year-old white male with previous history of amputations of the toes. Appears with increase in wounds to the toes for the last 6 weeks at least. He has been seen by his own senior mobile developer Dr. Nguyen and he referred him to here. He is currently using Aquacel to his wounds. His usually helps with dressing changes without a problem. Progress of Wound: Plantar left foot looks good measurements still same gets a callus around the edge. Cultures were positive patient was started on vancomycin. Measurements are about the same we will see how the works with the antibiotic to make it smaller. Tolerating the antibiotic well and it looks smaller but the measurements are about the same no sign of infection we will continue using Anne Marie to the wound base Subjective Subjective Patient is okay with going out 2 weeks to be seen Objective Data Objective Data No sign of infection tolerating antibiotic wound looks good its healing. Vital Signs: Vital Signs Temp Pulse Resp BP O2 Del Method 96.9 F L 75 16 152/86 H Room Air 11/10/22 09:44 11/10/22 09:44 10/27/22 09:47 11/10/22 09:44 10/27/22 09:47 Oxygen Delivery Method Room Air Lab / Micro Data Attestation: I reviewed the patient's lab results. Micro: Microbiology 10/27/22 10:00 Wound Abcess - Left Foot Gram Stain - Final 10/27/22 10:00 Wound Abcess - Left Foot Wound Culture - Final Staphylococcus lugdunensis 10/27/22 10:00 Wound Abcess - Left Foot Anaerobic Culture - Final No anaerobic bacteria isolated. Physical Exam Const oriented x3 General Appearance: cooperative Exam Limitations: no limitations Resp normal respiratory effort Effort and Inspection: able to speak in complete sentences Auscultation: clear to auscultation bilaterally Cardio regular rate and regular rhythm Palpation: normal PMI Rate: regular rate Rhythm: regular rhythm GI Auscultation: normoactive bowel sounds Palpation: soft and no hepatosplenomegaly Extremity normal to inspection General Extremity: normal exam except as noted Skin no rashes or lesions noted Wound Narrative: Open wounds with callus around on the right fifth toe plantar left second toe plantar and left great toe plantar with all with open wounds also. Neuro oriented x3 Psych Appearance: grossly normal Speech: normal speech Thought Content: normal thought content Judgement: judgement good Debridement Note Debridement Note Wound debrided: Left plantar wound Wound Grade/Stage: Stage II Type of Debridement: Excisional debridement Anesthesia Used: 5% Lidocaine Gel Depth: in the subcutaneous layer Percentage of wound debrided: 100 Instrument Used: 7mm curette Tissue Removed: Fibrin and callus Severity: Limited To Skin Breakdown Amount of bleeding with debridement: Mild Bleeding Controlled with: Pressure and Compression and gauze Patient tolerated procedure: Patient tolerated procedure well Post-Debridement Measurements and Additional Note: Post-Debridement Measurements/Treatment - Nurse 1 - General Ulcer Assessment Start: 10/20/22 09:42 Freq: Status: Active Protocol: REMA Activity Type Activity Date Activity User E-sign Co-sign Detail Recorded Client Recorded Date Recorded By Document 10/20/22 09:42 AL [id number] 10/20/22 09:50 AL Document 10/27/22 09:47 [facility] [id number] 10/27/22 09:51 [facility] Document 11/03/22 10:09 AL [id number] 11/03/22 10:11 AL Document 11/10/22 09:44 AL [id number] 11/10/22 09:52 AL 10/20/22 10/27/22 11/03/22 09:42 09:47 10:09 - Today's Visit Information Type of service Follow-up Visit Follow-up Visit Follow-up Visit (Physician/TELEVISION ANALYZER (Physician/TELEVISION ANALYZER (Physician/TELEVISION ANALYZER ) ) ) Arrival Mode Ambulatory Ambulatory Ambulatory Transfer Assistance None Patient Identification Verified (Name & Yes Yes Yes ) Patient Requires Transmission-Based No No No Precautions Safety Precautions NA Vital Signs Temperature (97.8 F-99.1 F) 97.9 F 95.8 F L 96.8 F L Temperature Source Temporal Temporal Temporal Pulse Rate (60-100) 63 80 82 Pulse Location Monitor Monitor Monitor Respiratory Rate (12-18) 16 Respiratory rate source Observation Oxygen Delivery Method Room Air Blood Pressure (90/60-120/80) 129/63 H 140/75 H 145/69 H Blood Pressure Mean (mm Hg) 85 96 94 Source Monitor Monitor Monitor Position Sitting Blood Pressure Location Left Arm History Since Last Visit- (Skip if this is Patient's initial visit) Have you changed medications since your No No No last visit? Any new allergies or adverse reactions No No No Had a fall/change in ADL's that may No No No increase risk of falls Signs or symptoms of abuse and/or No No No neglect since last visit Have you been in the hospital since your No No No last visit? Has dressing in place as prescribed Yes Yes Yes Has compression in place as prescribed Yes N/A No Has offloadiing in place as prescribed Yes Yes N/A Experienced any changes in pain level or No No No management Left Footwear Removable Cast Removable Cast Regular Shoe Walker/Walking Walker/Walking Boot Boot Right Footwear Regular Shoe Diabetic Shoe Regular Shoe Pain Scale: 0-10 Numeric Is Patient Pain Free? Yes Yes Yes 11/10/22 09:44 WC - Today's Visit Information Type of service Follow-up Visit (Physician/TELEVISION ANALYZER ) Arrival Mode Ambulatory Transfer Assistance Patient Identification Verified (Name & Yes ) Patient Requires Transmission-Based No Precautions Safety Precautions NA Vital Signs Temperature (97.8 F-99.1 F) 96.9 F L Temperature Source Temporal Pulse Rate (60-100) 75 Pulse Location Monitor Respiratory Rate (12-18) Respiratory rate source Oxygen Delivery Method Blood Pressure (90/60-120/80) 152/86 H Blood Pressure Mean (mm Hg) 108 Source Monitor Position Blood Pressure Location History Since Last Visit- (Skip if this is Patient's initial visit) Have you changed medications since your No last visit? Any new allergies or adverse reactions No Had a fall/change in ADL's that may No increase risk of falls Signs or symptoms of abuse and/or No neglect since last visit Have you been in the hospital since your No last visit? Has dressing in place as prescribed Yes Has compression in place as prescribed N/A Has offloadiing in place as prescribed N/A Experienced any changes in pain level or No management Left Footwear Regular Shoe Right Footwear Regular Shoe Pain Scale: 0-10 Numeric Is Patient Pain Free? Yes - Nurse 1 - General Ulcer Measurement Start: 10/20/22 09:42 Freq: Status: Active Protocol: Activity Type Activity Date Activity User E-sign Co-sign Detail Recorded Client Recorded Date Recorded By Document 10/20/22 09:42 OCTAVIO [id number] 10/20/22 09:50 AL Document 10/27/22 09:47 [facility] [id number] 10/27/22 09:51 [facility] Document 11/03/22 10:09 AL [id number] 11/03/22 10:11 AL Document 11/10/22 09:44 AL [id number] 11/10/22 09:52 AL 10/20/22 10/27/22 11/03/22 09:42 09:47 10:09 Wound Center Nurse 1 #10 L PLANTAR -Combined with other wound No No No -Current Size (cm) - Length 0.3 0.3 0.3 -Current Size (cm) - Width 0.4 0.4 0.2 -Current Size (cm) - Depth 0.2 0.2 0.2 -Total Square Cm 0.12 0.12 0.06 -Date of Last Picture (Recall this 10/27/22 field) -Photo Taken No Yes Yes -Epithelialization None Present -Tunneling No No No -Undermining/Tunneling No No No -Circular Undermining No No No -Change in Wound Grade/Stage No No -Exudate Amt Small Small Medium -Exudate Type Serosanguineous Serosanguineous Serosanguineous -Wound Margin Distinct, Distinct, Distinct, Outline Outline Outline Attached Attached Attached -Granulation Amt Medium (34-66%) Large (67-100%) Small (1-33%) -Granulation Quality Pale,[place] -Slough/Fibrin Yes Yes Yes -Necrosis Amt Small (1-33%) Small (1-33%) Small (1-33%) -Necrotic Tissue Type Adherent Slough Adherent Slough Adherent Slough -Structure Exposed N/A N/A -Texture (Angie-wound Skin Appearance) Assessed,Callus Assessed, No Abnormality, Scarring Assessed -Moisture (Angie-wound Skin Appearance) No Abnormality, Assessed,Dry/ No Abnormality, Assessed Scaly Assessed -Color (Angie-wound Skin Appearance) No Abnormality, Assessed No Abnormality, Assessed Assessed -Temperature (Angie-wound Skin No Abnormality No Abnormality No Abnormality Appearance) (Pt Warm) (Pt Warm) (Pt Warm) -Tenderness on Palpation (Angie-wound No No No Skin Appearance) -Ulcer Cleansing Rinsed/ Rinsed/ Soap and Water Irrigated with Irrigated with Saline Saline -Foul Odor after Cleansing No No No -Anesthetic Used 5% Lidocaine 5% Lidocaine 5% Lidocaine Gel Gel Gel 11/10/22 09:44 Wound Center Nurse 1 #10 L PLANTAR -Combined with other wound No -Current Size (cm) - Length 0.3 -Current Size (cm) - Width 0.2 -Current Size (cm) - Depth 0.2 -Total Square Cm 0.06 -Date of Last Picture (Recall this field) -Photo Taken Yes -Epithelialization -Tunneling No -Undermining/Tunneling No -Circular Undermining No -Change in Wound Grade/Stage No -Exudate Amt Small -Exudate Type Serosanguineous -Wound Margin Distinct, Outline Attached -Granulation Amt Medium (34-66%) -Granulation Quality [place],Red -Slough/Fibrin Yes -Necrosis Amt Medium (34-66%) -Necrotic Tissue Type Adherent Slough -Structure Exposed N/A -Texture (Angie-wound Skin Appearance) No Abnormality, Assessed -Moisture (Angie-wound Skin Appearance) No Abnormality, Assessed -Color (Angie-wound Skin Appearance) No Abnormality, Assessed -Temperature (Angie-wound Skin No Abnormality Appearance) (Pt Warm) -Tenderness on Palpation (Angie-wound No Skin Appearance) -Ulcer Cleansing Rinsed/ Irrigated with Saline -Foul Odor after Cleansing No -Anesthetic Used 5% Lidocaine Gel WC - Nurse 2 - General Ulcer CM Notes Start: 10/20/22 09:42 Freq: Status: Active Protocol: Activity Type Activity Date Activity User E-sign Co-sign Detail Recorded Client Recorded Date Recorded By Document 10/20/22 10:03 MW [id number] 10/20/22 10:11 MW Document 10/27/22 09:59 MW [id number] 10/27/22 10:05 MW Document 11/03/22 10:15 MW [id number] 11/03/22 10:22 MW Document 11/10/22 09:56 MW [id number] 11/10/22 09:59 MW 10/20/22 10/27/22 11/03/22 10:03 09:59 10:15 Wound Center Nurse 2 #10 L PLANTAR -Time 10:03 10:02 10:16 -Correct Patient Yes Yes Yes -Correct Side, Site, Position Yes Yes Yes -Correct Procedure Yes Yes Yes -Procedure Performed Yes Yes Yes -Type of Procedure Debridement Debridement Incision & Drainage -Clinical Debridement Subcutaneous Subcutaneous Subcutaneous -Tissue Removed Subcutaneous Subcutaneous Subcutaneous -Post Debridement (cm) - Length 0.2 0.3 0.3 -Post Debridement (cm) - Width 0.7 0.4 0.5 -Post Debridement (cm) - Depth 0.2 0.2 0.2 -Total Square (Post) (cm) 0.14 0.12 0.15 -Area of Debridement (cm) - Length 0.2 0.3 0.3 -Area of Debridement (cm) - Width 0.7 0.4 0.5 -Total Square (Area) (cm) 0.14 0.12 0.15 -Tunneling No No No -Undermining/Tunneling No No No -Circular Undermining No No No -Wound/Ulcer Outcome Not Healed Not Healed Not Healed -Ulcer Cleansing Rinsed/ Rinsed/ Rinsed/ Irrigated with Irrigated with Irrigated with Saline Saline Saline -Foul Odor after Cleansing No No No -Bioengineered Tissue No No No -Bleeding Controlled with Pressure Pressure Pressure -Treatment Response Procedure Procedure Procedure Not Tolerated Well Tolerated Well Tolerated Well -Offloading No No No -Debridement - Subq, 1st 20sq cm Yes Yes Yes Pain Scale: 0-10 Numeric Is Patient Pain Free? Yes Yes Yes 11/10/22 09:56 Wound Center Nurse 2 #10 L PLANTAR -Time 09:56 -Correct Patient Yes -Correct Side, Site, Position Yes -Correct Procedure Yes -Procedure Performed Yes -Type of Procedure Debridement -Clinical Debridement Subcutaneous -Tissue Removed Subcutaneous -Post Debridement (cm) - Length 0.4 -Post Debridement (cm) - Width 0.5 -Post Debridement (cm) - Depth 0.2 -Total Square (Post) (cm) 0.20 -Area of Debridement (cm) - Length 0.4 -Area of Debridement (cm) - Width 0.5 -Total Square (Area) (cm) 0.20 -Tunneling No -Undermining/Tunneling No -Circular Undermining No -Wound/Ulcer Outcome Not Healed -Ulcer Cleansing Rinsed/ Irrigated with Saline -Foul Odor after Cleansing No -Bioengineered Tissue No -Bleeding Controlled with Pressure -Treatment Response Procedure Tolerated Well -Offloading No -Debridement - Subq, 1st 20sq cm Yes Pain Scale: 0-10 Numeric Is Patient Pain Free? Yes - Nurse 3 - General Ulcer D/C NN Start: 10/20/22 09:42 Freq: Status: Active Protocol: Activity Type Activity Date Activity User E-sign Co-sign Detail Recorded Client Recorded Date Recorded By Document 10/20/22 10:23 [facility] [id number] 10/20/22 10:24 [facility] Document 10/27/22 10:09 [facility] [id number] 10/27/22 10:10 [facility] Document 11/03/22 11:17 [place] [id number] 11/03/22 11:18 AK 10/20/22 10/27/22 11/03/22 10:23 10:09 11:17 Wound Care Nurse 3 #10 L PLANTAR -Ulcer Cleansing Rinsed/ Rinsed/ Rinsed/ Irrigated with Irrigated with Irrigated with Saline Saline Saline -Foul Odor after Cleansing No No No -Negative Pressure Wound Therapy N/A -Primary Dressing Applied NonAdherent NonAdherent Promogran Contact Layer, Contact Layer, Promogran Promogran Anne Marie Matter Anne Marie Matter -Other Dressing stasis pad; drsg per ak melter supervisor -Primary Dressing Covered/Secured with Dry Gauze & Dry Gauze & Dry Gauze & Roll Gauze, Roll Gauze, Roll Gauze, Secured with Secured with Secured with Tape Tape Tape -Promogran 1 -Promogran Anne Marie Matter 1 1 Treatment Response Procedure Procedure Tolerated Well Tolerated Well Pain Scale: 0-10 Numeric Is Patient Pain Free? 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 (2) Decubitus ulcer limited to breakdown of skin (stage 2): CODE(S): L89.92 - Pressure ulcer of unspecified site, stage 2 QUALIFIERS: Pressure injury location: toe Laterality: left Qualified Code(s): L89.892 - Pressure ulcer of other site, stage 2 PLAN: Wash foot with antibacterial soap pat dry apply the Anne Marie to wound base apply stasis pad under wound with Adaptic over top gauze and tape off load is much as possible follow-up in 2 week Apply stasis pad to second toe plantar side Continue vancomycin as prescribed
== END 2022-11-13 23:59 | disposition home or self-care (01) ==
LOC: WC 09:45
PROVIDERS: PCP Family Medicine; Referring Provider Nurse Practitioner; Visit Provider Nurse Practitioner
DX: E11.622 Type 2 diabetes mellitus with other skin ulcer (principal); L89.892 Pressure ulcer of other site, stage 2; L97.526 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 involvement without evidence of necrosis
CPT/HCPCS: 11042; 87070; 87075; 87077; 87186; 87205

== ENCOUNTER → 2022-11-19 | Outpatient (CLI) | payer MEDICARE, OTHER, SELFPAY ==
[2022-11-19 10:18] VITALS: BP 151/67; PULSE 60; RESP 18; TEMP 36.3; O2SAT 100; BMI 30.4
[2022-11-19] MEDS: DiphenhydrAMINE 50 MG/ML Syringe 12.5 MG IV (11:02)
== END | disposition home or self-care (01) ==
LOC: MEDOUTP 10:08
PROVIDERS: PCP Family Medicine; Referring Provider Family Medicine; Visit Provider Family Medicine
DX: L40.52 Psoriatic arthritis mutilans (principal); L40.3 Pustulosis palmaris et plantaris; L85.3 Xerosis cutis; Z79.899 Other long term (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; M50.90 Cervical disc disorder, unspecified, unspecified cervical region; M17.0 Bilateral primary osteoarthritis of knee; L21.9 Seborrheic dermatitis, unspecified; Z79.1 Long term (current) use of non-steroidal anti-inflammatories (NSAID)
CPT/HCPCS: 96365; 96366; 96375; 96413; 96415; J7050; Q5103

== ENCOUNTER → 2022-11-25 | Outpatient (CLI) | payer MEDICARE, OTHER, SELFPAY ==
[2022-11-25 13:11] LABS: Erythrocyte Sedimentation Rate 9 mm/hr (0-20)
[2022-11-25 13:15] LABS: Absolute Lymphocyte Count 1.86 X10^3/uL (0.83-4.51); Absolute Neutrophil Count 3.7 X10^3/uL (2.0-7.7); Basophil# 0.03 X10^3/uL; Basophil% 0.4 % (0-1); Eosinophil# 0.46 X10^3/uL; Eosinophils% 6.5 % (0-5); Hematocrit 41.4 % (40-54); Lymphocyte # 1.86 X10^3/ul (0.83-4.51); Lymphocyte % 26.5 % (19-41); Mean Corp Hgb Conc 33.8 g/dL (32-36); Mean Corpuscular Volume 94.5 fL (80-94); Mean Platelet Vol. 10.2 fl (6.2-12.0); Monocyte# 0.92 X10^3/uL; Monocyte% 13.1 % (0-10); NRBC Flagged by Analyzer 0 % (0-5); Neutrophil # 3.73 X10^3/uL (2.7-7.7); Neutrophil % 53.1 % (47-70); Platelet Count 257 K/mm3 (150-450); RBC Distribution Width CV 13.2 % (11.6-14.6); RBC Distribution Width SD 45.5 fl (35.1-43.9); Red Blood Count 4.38 M/mm3 (4.6-6.2)
[2022-11-25 13:47] LABS: AST(SGOT) 33 U/L (15-37); Alanine Aminotransfer ALT/SGPT 59 U/L (16-61); CRP < 2.90 mg/L (0.0-3.0); Creatinine, Serum 1.31 mg/dL (0.70-1.30); EST Glomerular Filtration Rate 56 mL/min (>60); Est Glom Filt Rate - Afr Amer 68 mL/min (>60)
== END | disposition home or self-care (01) ==
LOC: LAB 12:30
PROVIDERS: PCP Family Medicine; Referring Provider Internal Medicine Rheumatology; Visit Provider Internal Medicine Rheumatology
DX: L40.52 Psoriatic arthritis mutilans (principal); L40.3 Pustulosis palmaris et plantaris; L85.3 Xerosis cutis; L57.8 Other skin changes due to chronic exposure to nonionizing radiation; L21.9 Seborrheic dermatitis, unspecified; L82.1 Other seborrheic keratosis; L30.1 Dyshidrosis [pompholyx]; Z79.1 Long term (current) use of non-steroidal anti-inflammatories (NSAID); Z85.828 Personal history of other malignant neoplasm of skin; Z87.39 Personal history of other diseases of the musculoskeletal system and connective tissue; Z79.899 Other long term (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; M50.90 Cervical disc disorder, unspecified, unspecified cervical region; M17.0 Bilateral primary osteoarthritis of knee
CPT/HCPCS: 36415; 82565; 84450; 84460; 85025; 85652; 86140

== ENCOUNTER 2022-12-01 09:45 | Outpatient (RCR) | payer MEDICARE, OTHER, SELFPAY ==
[2022-11-14 00:23] VITALS: BP 152/86; PULSE 75; RESP 16; TEMP 36.1
[2022-11-24 09:40] VITALS: BP 157/77; PULSE 72; RESP 16; TEMP 35.8
--- NOTE | 2022-11-24 11:07 | PN.PCM_ITS ---
History of Present Illness Date of Service: 11/24/22 Chief Complaint: Follow-up on right fifth toe plantar side left plantar great toe and left plantar second toe. History of Wound: 76-year-old white male with previous history of amputations of the toes. Appears with increase in wounds to the toes for the last 6 weeks at least. He has been seen by his own strip catcher Dr. Nguyen and he referred him to here. He is currently using Aquacel to his wounds. His usually helps with dressing changes without a problem. Progress of Wound: Wound is progressing well slightly smaller but still gets a callus around the total peripheral edge of the wound Subjective Subjective Patient is pleased with outcomes and is needing new supplies Objective Data Objective Data No sign of infection no odor finishes antibiotic therapy. Vital Signs: Vital Signs Temp Pulse Resp BP O2 Del Method 96.4 F L 72 16 157/77 H Room Air 11/24/22 09:40 11/24/22 09:40 11/24/22 09:40 11/24/22 09:40 11/24/22 09:40 Oxygen Delivery Method Room Air Lab / Micro Data Attestation: I reviewed the patient's lab results. Physical Exam Const oriented x3 General Appearance: cooperative Exam Limitations: no limitations Resp normal respiratory effort Effort and Inspection: able to speak in complete sentences Auscultation: clear to auscultation bilaterally Cardio regular rate and regular rhythm Palpation: normal PMI Rate: regular rate Rhythm: regular rhythm GI Auscultation: normoactive bowel sounds Palpation: soft and no hepatosplenomegaly Extremity normal to inspection General Extremity: normal exam except as noted Skin no rashes or lesions noted Wound Narrative: Open wounds with callus around on the right fifth toe plantar left second toe plantar and left great toe plantar with all with open wounds also. Neuro oriented x3 Psych Appearance: grossly normal Speech: normal speech Thought Content: normal thought content Judgement: judgement good Debridement Note Debridement Note Wound debrided: Left plantar ulcer Laterality: Left Wound Grade/Stage: Stage II Type of Debridement: Excisional debridement Depth: in the subcutaneous layer Percentage of wound debrided: 100 Instrument Used: 7mm curette and - (Nippers) Severity: Fat Layer Exposed Amount of bleeding with debridement: Mild Bleeding Controlled with: Compression and gauze Patient tolerated procedure: Patient tolerated procedure well Post-Debridement Measurements and Additional Note: Post-Debridement Measurements/Treatment WC - Nurse 1 - General Ulcer Assessment Start: 11/24/22 09:40 Freq: Status: Active Protocol: REMA Activity Type Activity Date Activity User E-sign Co-sign Detail Recorded Client Recorded Date Recorded By Document 11/24/22 09:40 [facility] [id number] 11/24/22 09:45 [facility] 11/24/22 09:40 WC - Today's Visit Information Type of service Follow-up Visit (Physician/EGG SMELLER ) Arrival Mode Ambulatory Transfer Assistance None Patient Identification Verified (Name & Yes ) Patient Requires Transmission-Based No Precautions Vital Signs Temperature (97.8 F-99.1 F) 96.4 F L Temperature Source Temporal Pulse Rate (60-100) 72 Pulse Location Monitor Respiratory Rate (12-18) 16 Respiratory rate source Observation Oxygen Delivery Method Room Air Blood Pressure (90/60-120/80) 157/77 H Blood Pressure Mean (mm Hg) 103 Source Monitor Position Sitting Blood Pressure Location Left Arm History Since Last Visit- (Skip if this is Patient's initial visit) Have you changed medications since your No last visit? Any new allergies or adverse reactions No Had a fall/change in ADL's that may No increase risk of falls Signs or symptoms of abuse and/or No neglect since last visit Have you been in the hospital since your No last visit? Has dressing in place as prescribed Yes Has compression in place as prescribed N/A Has offloadiing in place as prescribed Yes Left Footwear Diabetic Shoe Right Footwear Diabetic Shoe Pain Scale: 0-10 Numeric Is Patient Pain Free? Yes - Nurse 1 - General Ulcer Measurement Start: 11/24/22 09:40 Freq: Status: Active Protocol: Activity Type Activity Date Activity User E-sign Co-sign Detail Recorded Client Recorded Date Recorded By Document 11/24/22 09:40 [facility] [id number] 11/24/22 09:45 [facility] 11/24/22 09:40 Wound Center Nurse 1 #10 L PLANTAR -Combined with other wound No -Current Size (cm) - Length 0.4 -Current Size (cm) - Width 0.4 -Current Size (cm) - Depth 0.3 -Total Square Cm 0.16 -Date of Last Picture (Recall this 11/24/22 field) -Photo Taken Yes -Epithelialization None Present -Tunneling No -Undermining/Tunneling No -Circular Undermining No -Exudate Amt Medium -Exudate Type Serosanguineous -Wound Margin Distinct, Outline Attached -Granulation Amt Medium (34-66%) -Granulation Quality [place],Red -Slough/Fibrin No -Necrosis Amt Medium (34-66%) -Necrotic Tissue Type Adherent Slough -Texture (Angie-wound Skin Appearance) Assessed,Callus ,Scarring -Moisture (Angie-wound Skin Appearance) Assessed,Dry/ Scaly -Color (Angie-wound Skin Appearance) Assessed -Temperature (Angie-wound Skin No Abnormality Appearance) (Pt Warm) -Tenderness on Palpation (Angie-wound No Skin Appearance) -Ulcer Cleansing Rinsed/ Irrigated with Saline -Foul Odor after Cleansing No -Anesthetic Used 5% Lidocaine Gel WC - Nurse 2 - General Ulcer CM Notes Start: 11/24/22 09:40 Freq: Status: Active Protocol: Activity Type Activity Date Activity User E-sign Co-sign Detail Recorded Client Recorded Date Recorded By Document 11/24/22 09:57 MW [id number] 11/24/22 10:04 MW 11/24/22 09:57 Wound Center Nurse 2 -Time 09:57 -Correct Patient Yes -Correct Side, Site, Position Yes -Correct Procedure Yes -Procedure Performed Yes -Type of Procedure Debridement -Clinical Debridement Subcutaneous -Tissue Removed Subcutaneous -Post Debridement (cm) - Length 0.3 -Post Debridement (cm) - Width 0.5 -Post Debridement (cm) - Depth 0.2 -Total Square (Post) (cm) 0.15 -Area of Debridement (cm) - Length 0.3 -Area of Debridement (cm) - Width 0.5 -Total Square (Area) (cm) 0.15 -Tunneling No -Undermining/Tunneling No -Circular Undermining No -Wound/Ulcer Outcome Not Healed -Ulcer Cleansing Rinsed/ Irrigated with Saline -Foul Odor after Cleansing No -Bioengineered Tissue No -Bleeding Controlled with Pressure -Treatment Response Procedure Tolerated Well -Offloading No -Debridement - Subq, 1st 20sq cm Yes Pain Scale: 0-10 Numeric Is Patient Pain Free? Yes JONNY - Nurse 3 - General Ulcer D/C NN Start: 11/24/22 09:40 Freq: Status: Active Protocol: Activity Type Activity Date Activity User E-sign Co-sign Detail Recorded Client Recorded Date Recorded By Document 11/24/22 10:13 [facility] [id number] 11/24/22 10:13 [facility] 11/24/22 10:13 Wound Care Nurse 3 #10 L PLANTAR -Ulcer Cleansing Rinsed/ Irrigated with Saline -Foul Odor after Cleansing No -Primary Dressing Applied NonAdherent Contact Layer, Promogran Anne Marie Matter -Primary Dressing Covered/Secured with Dry Gauze & Roll Gauze, Secured with Tape -Other Covering stasis pad -Promogran Anne Marie Matter 1 Treatment Response Procedure Tolerated Well Pain Scale: 0-10 Numeric Is Patient Pain Free? 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 Continue vancomycin as prescribed
[2022-12-01 09:50] VITALS: BP 139/67; PULSE 67; TEMP 35.7
--- NOTE | 2022-12-01 10:21 | PN.PCM_ITS ---
History of Present Illness Date of Service: 12/01/22 Chief Complaint: Follow-up on right fifth toe plantar side left plantar great toe and left plantar second toe. History of Wound: 76-year-old white male with previous history of amputations of the toes. Appears with increase in wounds to the toes for the last 6 weeks at least. He has been seen by his own engine dynamometer tester Dr. Nguyen and he referred him to here. He is currently using Aquacel to his wounds. His usually helps with dressing changes without a problem. Progress of Wound: Wound is progressing well slightly smaller but still gets a callus around the total peripheral edge of the wound Subjective Subjective Patient is pleased with outcomes Objective Data Objective Data No sign of infection measurements are about the same still has a callus around the edge doing well switch him over to Promogran from Anne Marie. Vital Signs: Vital Signs Temp Pulse Resp BP O2 Del Method 96.3 F L 67 16 139/67 H Room Air 12/01/22 09:50 12/01/22 09:50 11/24/22 09:40 12/01/22 09:50 11/24/22 09:40 Oxygen Delivery Method Room Air Lab / Micro Data Attestation: I reviewed the patient's lab results. Physical Exam Const oriented x3 General Appearance: cooperative Exam Limitations: no limitations Resp normal respiratory effort Effort and Inspection: able to speak in complete sentences Auscultation: clear to auscultation bilaterally Cardio regular rate and regular rhythm Palpation: normal PMI Rate: regular rate Rhythm: regular rhythm GI Auscultation: normoactive bowel sounds Palpation: soft and no hepatosplenomegaly Extremity normal to inspection General Extremity: normal exam except as noted Skin no rashes or lesions noted Wound Narrative: Open wounds with callus around on the right fifth toe plantar left second toe plantar and left great toe plantar with all with open wounds also. Neuro oriented x3 Psych Appearance: grossly normal Speech: normal speech Thought Content: normal thought content Judgement: judgement good Debridement Note Debridement Note Wound debrided: Left plantar pressure Laterality: Left Type of Debridement: Excisional debridement Anesthesia Used: 5% Lidocaine Gel Depth: in the subcutaneous layer Percentage of wound debrided: 100 Instrument Used: 5mm curette Tissue Removed: Fibrin and callus Severity: Fat Layer Exposed Amount of bleeding with debridement: Mild Bleeding Controlled with: Compression and gauze Patient tolerated procedure: Patient tolerated procedure well Post-Debridement Measurements and Additional Note: Post-Debridement Measurements/Treatment - Nurse 1 - General Ulcer Assessment Start: 11/24/22 09:40 Freq: Status: Active Protocol: REMA Activity Type Activity Date Activity User E-sign Co-sign Detail Recorded Client Recorded Date Recorded By Document 11/24/22 09:40 [facility] [id number] 11/24/22 09:45 BM Document 12/01/22 09:50 [place] [id number] 12/01/22 09:53 [place] 11/24/22 12/01/22 09:40 09:50 WC - Today's Visit Information Type of service Follow-up Visit Follow-up Visit (Physician/PORCELAIN TURNER (Physician/PORCELAIN TURNER ) ) Arrival Mode Ambulatory Ambulatory Transfer Assistance None Patient Identification Verified (Name & Yes Yes ) Patient Requires Transmission-Based No No Precautions Vital Signs Temperature (97.8 F-99.1 F) 96.4 F L 96.3 F L Temperature Source Temporal Temporal Pulse Rate (60-100) 72 67 Pulse Location Monitor Monitor Respiratory Rate (12-18) 16 Respiratory rate source Observation Oxygen Delivery Method Room Air Blood Pressure (90/60-120/80) 157/77 H 139/67 H Blood Pressure Mean (mm Hg) 103 91 Source Monitor Monitor Position Sitting Blood Pressure Location Left Arm History Since Last Visit- (Skip if this is Patient's initial visit) Have you changed medications since your No No last visit? Any new allergies or adverse reactions No No Had a fall/change in ADL's that may No No increase risk of falls Signs or symptoms of abuse and/or No No neglect since last visit Have you been in the hospital since your No No last visit? Has dressing in place as prescribed Yes Yes Has compression in place as prescribed N/A N/A Has offloadiing in place as prescribed Yes Yes Experienced any changes in pain level or No management Left Footwear Diabetic Shoe Removable Cast Walker/Walking Boot Right Footwear Diabetic Shoe Regular Shoe Pain Scale: 0-10 Numeric Is Patient Pain Free? Yes Yes JONNY Fabian Nurse 1 - General Ulcer Measurement Start: 11/24/22 09:40 Freq: Status: Active Protocol: Activity Type Activity Date Activity User E-sign Co-sign Detail Recorded Client Recorded Date Recorded By Document 11/24/22 09:40 [facility] [id number] 11/24/22 09:45 [facility] Document 12/01/22 09:50 [place] [id number] 12/01/22 09:53 [place] 11/24/22 12/01/22 09:40 09:50 Wound Center Nurse 1 #10 L PLANTAR -Combined with other wound No No -Current Size (cm) - Length 0.4 0.1 -Current Size (cm) - Width 0.4 0.2 -Current Size (cm) - Depth 0.3 0.3 -Total Square Cm 0.16 0.02 -Date of Last Picture (Recall this 11/24/22 12/01/22 field) -Photo Taken Yes Yes -Epithelialization None Present -Tunneling No No -Undermining/Tunneling No No -Circular Undermining No Yes -Exudate Amt Medium Medium -Exudate Type Serosanguineous Serosanguineous -Wound Margin Distinct, Distinct, Outline Outline Attached Attached -Granulation Amt Medium (34-66%) Large (67-100%) -Granulation Quality [place],Red Red -Slough/Fibrin No No -Necrosis Amt Medium (34-66%) None Present (0 %) -Necrotic Tissue Type Adherent Slough -Structure Exposed N/A -Texture (Angie-wound Skin Appearance) Assessed,Callus Assessed,Callus ,Scarring -Moisture (Angie-wound Skin Appearance) Assessed,Dry/ No Abnormality, Scaly Assessed -Color (Angie-wound Skin Appearance) Assessed No Abnormality, Assessed -Temperature (Angie-wound Skin No Abnormality No Abnormality Appearance) (Pt Warm) (Pt Warm) -Tenderness on Palpation (Angie-wound No No Skin Appearance) -Ulcer Cleansing Rinsed/ Rinsed/ Irrigated with Irrigated with Saline Saline -Foul Odor after Cleansing No No -Anesthetic Used 5% Lidocaine 5% Lidocaine Gel Gel WC - Nurse 2 - General Ulcer CM Notes Start: 11/24/22 09:40 Freq: Status: Active Protocol: Activity Type Activity Date Activity User E-sign Co-sign Detail Recorded Client Recorded Date Recorded By Document 11/24/22 09:57 MW [id number] 11/24/22 10:04 MW Document 12/01/22 09:58 MW [id number] 12/01/22 10:01 MW 11/24/22 12/01/22 09:57 09:58 Wound Center Nurse 2 #10 L PLANTAR -Time 09:57 09:58 -Correct Patient Yes Yes -Correct Side, Site, Position Yes Yes -Correct Procedure Yes Yes -Procedure Performed Yes Yes -Type of Procedure Debridement Debridement -Clinical Debridement Subcutaneous Subcutaneous -Tissue Removed Subcutaneous Subcutaneous -Post Debridement (cm) - Length 0.3 0.3 -Post Debridement (cm) - Width 0.5 0.5 -Post Debridement (cm) - Depth 0.2 0.2 -Total Square (Post) (cm) 0.15 0.15 -Area of Debridement (cm) - Length 0.3 0.3 -Area of Debridement (cm) - Width 0.5 0.5 -Total Square (Area) (cm) 0.15 0.15 -Tunneling No No -Undermining/Tunneling No No -Circular Undermining No No -Wound/Ulcer Outcome Not Healed Not Healed -Ulcer Cleansing Rinsed/ Rinsed/ Irrigated with Irrigated with Saline Saline -Foul Odor after Cleansing No No -Bioengineered Tissue No No -Bleeding Controlled with Pressure Pressure -Treatment Response Procedure Procedure Tolerated Well Tolerated Well -Offloading No No -Debridement - Subq, 1st 20sq cm Yes Yes Pain Scale: 0-10 Numeric Is Patient Pain Free? Yes Yes - Nurse 3 - General Ulcer D/C NN Start: 11/24/22 09:40 Freq: Status: Active Protocol: Activity Type Activity Date Activity User E-sign Co-sign Detail Recorded Client Recorded Date Recorded By Document 11/24/22 10:13 [facility] [id number] 11/24/22 10:13 [facility] 11/24/22 10:13 Wound Care Nurse 3 #10 L PLANTAR -Ulcer Cleansing Rinsed/ Irrigated with Saline -Foul Odor after Cleansing No -Primary Dressing Applied NonAdherent Contact Layer, Promogran Anne Marie Matter -Primary Dressing Covered/Secured with Dry Gauze & Roll Gauze, Secured with Tape -Other Covering stasis pad -Promogran Anne Marie Matter 1 Treatment Response Procedure Tolerated Well Pain Scale: 0-10 Numeric Is Patient Pain Free? 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
== END 2022-12-14 23:59 | disposition home or self-care (01) ==
LOC: WC 09:45
PROVIDERS: PCP Family Medicine; Referring Provider Nurse Practitioner; Visit Provider Nurse Practitioner
DX: L89.892 Pressure ulcer of other site, stage 2 (principal); E08.621 Diabetes mellitus due to underlying condition with foot ulcer; L97.522 Non-pressure chronic ulcer of other part of left foot with fat layer exposed; L97.526 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 involvement without evidence of necrosis
CPT/HCPCS: 11042

== ENCOUNTER → 2022-12-31 | Outpatient (CLI) | payer MEDICARE, OTHER, SELFPAY ==
[2022-12-31 10:24] VITALS: BP 149/78; PULSE 56; RESP 16; TEMP 35.9; O2SAT 100; BMI 29.1
[2022-12-31] MEDS: DiphenhydrAMINE 50 MG/ML Syringe 12.5 MG IV (10:55)
== END | disposition home or self-care (01) ==
LOC: MEDOUTP 10:01
PROVIDERS: PCP Family Medicine; Referring Provider Family Medicine; Visit Provider Family Medicine
DX: L40.52 Psoriatic arthritis mutilans (principal); L40.3 Pustulosis palmaris et plantaris; L85.3 Xerosis cutis; M50.90 Cervical disc disorder, unspecified, unspecified cervical region; M17.0 Bilateral primary osteoarthritis of knee; L21.9 Seborrheic dermatitis, unspecified; Z79.1 Long term (current) use of non-steroidal anti-inflammatories (NSAID); Z79.899 Other long term (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
CPT/HCPCS: 96375; 96413; 96415; J7050; A4216; Q5103

== ENCOUNTER 2023-01-06 10:00 | Outpatient (RCR) | payer MEDICARE, OTHER, SELFPAY ==
[2022-12-15 00:28] VITALS: BP 139/67; PULSE 67; RESP 16; TEMP 35.7
[2022-12-15 10:20] VITALS: BP 130/76; PULSE 58; RESP 16; TEMP 36.2
--- NOTE | 2022-12-15 12:15 | PCM.WC.PN ---
History of Present Illness Date of Service: 12/15/22 Chief Complaint: Follow-up on right fifth toe plantar side left plantar great toe and left plantar second toe. History of Wound: 76-year-old white male with previous history of amputations of the toes. Appears with increase in wounds to the toes for the last 6 weeks at least. He has been seen by his own rewriter Dr. Nguyen and he referred him to here. He is currently using Aquacel to his wounds. His usually helps with dressing changes without a problem. Progress of Wound: He grew a huge callus over his wound that had to be debrided off still has a hole in the top of the foot. We are going to have him follow-up with podiatry this next week and see what he thinks. I think he needs to be offloaded with the boot. We will continue with Promogran and using the stasis pads. Subjective Subjective Patient is fine with treatment Objective Data Objective Data Thick callus removed with sharps and nippers. Wound itself is still the same about the same size. Vital Signs: Vital Signs Temp Pulse Resp BP O2 Del Method 97.1 F L 58 L 16 130/76 H Room Air 12/15/22 10:20 12/15/22 10:20 12/15/22 10:20 12/15/22 10:20 12/15/22 10:20 Oxygen Delivery Method Room Air Lab / Micro Data Attestation: I reviewed the patient's lab results. Physical Exam Const oriented x3 General Appearance: cooperative Exam Limitations: no limitations Resp normal respiratory effort Effort and Inspection: able to speak in complete sentences Auscultation: clear to auscultation bilaterally Cardio regular rate and regular rhythm Palpation: normal PMI Rate: regular rate Rhythm: regular rhythm GI Auscultation: normoactive bowel sounds Palpation: soft and no hepatosplenomegaly Extremity normal to inspection General Extremity: normal exam except as noted Skin no rashes or lesions noted Wound Narrative: Open wounds with callus around on the right fifth toe plantar left second toe plantar and left great toe plantar with all with open wounds also. Neuro oriented x3 Psych Appearance: grossly normal Speech: normal speech Thought Content: normal thought content Judgement: judgement good Debridement Note Debridement Note Wound debrided: Left foot plantar Wound Grade/Stage: Stage II Type of Debridement: Excisional debridement Anesthesia Used: 5% Lidocaine Gel Depth: Down to and including healthy tissue and in the subcutaneous layer Percentage of wound debrided: 100 Instrument Used: 7mm curette, #15 blade and - (Nippers) Tissue Removed: Callus fibrin Severity: Limited To Skin Breakdown Amount of bleeding with debridement: Mild Patient tolerated procedure: Patient tolerated procedure well Post-Debridement Measurements and Additional Note: Post-Debridement Measurements/Treatment JONNY Fabian Nurse 1 - General Ulcer Assessment Start: 12/15/22 10:18 Freq: Status: Active Protocol: REMA Activity Type Activity Date Activity User E-sign Co-sign Detail Recorded Client Recorded Date Recorded By Document 12/15/22 10:20 [facility] [id number] 12/15/22 10:27 [facility] 12/15/22 10:20 JONNY Fabian Today's Visit Information Type of service Follow-up Visit (Physician/LOADMASTER ) Arrival Mode Ambulatory Transfer Assistance None Patient Identification Verified (Name & Yes ) Patient Requires Transmission-Based No Precautions Vital Signs Temperature (97.8 F-99.1 F) 97.1 F L Temperature Source Temporal Pulse Rate (60-100) 58 L Pulse Location Monitor Respiratory Rate (12-18) 16 Respiratory rate source Observation Oxygen Delivery Method Room Air Blood Pressure (90/60-120/80) 130/76 H Blood Pressure Mean (mm Hg) 94 Source Monitor Position Sitting Blood Pressure Location Right Arm History Since Last Visit- (Skip if this is Patient's initial visit) Have you changed medications since your No last visit? Any new allergies or adverse reactions No Had a fall/change in ADL's that may No increase risk of falls Signs or symptoms of abuse and/or No neglect since last visit Have you been in the hospital since your No last visit? Has dressing in place as prescribed Yes Has compression in place as prescribed N/A Has offloadiing in place as prescribed No Experienced any changes in pain level or No management Left Footwear Diabetic Shoe Right Footwear Diabetic Shoe Pain Scale: 0-10 Numeric Is Patient Pain Free? Yes JONNY Fabian Nurse 1 - General Ulcer Measurement Start: 12/15/22 10:18 Freq: Status: Active Protocol: Activity Type Activity Date Activity User E-sign Co-sign Detail Recorded Client Recorded Date Recorded By Document 12/15/22 10:20 [facility] [id number] 12/15/22 10:27 [facility] 12/15/22 10:20 Wound Center Nurse 1 #10 L PLANTAR -Combined with other wound No -Current Size (cm) - Length 0.3 -Current Size (cm) - Width 0.1 -Current Size (cm) - Depth 0.4 -Total Square Cm 0.03 -Date of Last Picture (Recall this 12/15/22 field) -Photo Taken Yes -Epithelialization None Present -Tunneling No -Undermining/Tunneling Yes -Undermining/Tunneling Starts (O'clock 12 ) -Undermining/Tunneling Ends (O'clock) 4 -Maximum Distance (cm) 0.6 -Circular Undermining No -Exudate Amt Medium -Exudate Type Serosanguineous -Wound Margin Distinct, Outline Attached -Granulation Amt Small (1-33%) -Granulation Quality Red -Texture (Angie-wound Skin Appearance) Assessed,Callus ,Scarring -Moisture (Angie-wound Skin Appearance) Assessed,Dry/ Scaly -Color (Angie-wound Skin Appearance) Assessed -Temperature (Angie-wound Skin No Abnormality Appearance) (Pt Warm) -Tenderness on Palpation (Angie-wound No Skin Appearance) -Ulcer Cleansing Rinsed/ Irrigated with Saline -Foul Odor after Cleansing No -Anesthetic Used 5% Lidocaine Gel WC - Nurse 2 - General Ulcer CM Notes Start: 12/15/22 10:18 Freq: Status: Active Protocol: Activity Type Activity Date Activity User E-sign Co-sign Detail Recorded Client Recorded Date Recorded By Document 12/15/22 10:35 MW [id number] 12/15/22 10:47 MW 12/15/22 10:35 Wound Center Nurse 2 -Time 10:36 -Correct Patient Yes -Correct Side, Site, Position Yes -Correct Procedure Yes -Procedure Performed Yes -Type of Procedure Debridement -Clinical Debridement Subcutaneous -Tissue Removed Subcutaneous -Post Debridement (cm) - Length 0.3 -Post Debridement (cm) - Width 0.6 -Post Debridement (cm) - Depth 0.2 -Total Square (Post) (cm) 0.18 -Area of Debridement (cm) - Length 0.3 -Area of Debridement (cm) - Width 0.6 -Total Square (Area) (cm) 0.18 -Tunneling No -Undermining/Tunneling No -Circular Undermining No -Wound/Ulcer Outcome Not Healed -Ulcer Cleansing Rinsed/ Irrigated with Saline -Foul Odor after Cleansing No -Bioengineered Tissue No -Bleeding Controlled with Pressure -Offloading No -Debridement - Subq, 1st 20sq cm Yes Pain Scale: 0-10 Numeric Is Patient Pain Free? Yes - Nurse 3 - General Ulcer D/C NN Start: 12/15/22 10:18 Freq: Status: Active Protocol: Activity Type Activity Date Activity User E-sign Co-sign Detail Recorded Client Recorded Date Recorded By Document 12/15/22 10:57 [facility] [id number] 12/15/22 11:00 [facility] 12/15/22 10:57 Wound Care Center Nurse 3 #10 L PLANTAR -Ulcer Cleansing Rinsed/ Irrigated with Saline -Foul Odor after Cleansing No -Primary Dressing Applied NonAdherent Contact Layer, Promogran Anne Marie Matter -Other Dressing stasis pad -Primary Dressing Covered/Secured with Dry Gauze & Roll Gauze, Secured with Tape -Promogran Anne Marie Matter 1 Treatment Response Procedure Tolerated Well Pain Scale: 0-10 Numeric Is Patient Pain Free? 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 (2) Decubitus ulcer limited to breakdown of skin (stage 2): CODE(S): L89.92 - Pressure ulcer of unspecified site, stage 2 QUALIFIERS: Pressure injury location: toe Laterality: left Qualified Code(s): L89.892 - Pressure ulcer of other site, stage 2 PLAN: Wash foot with antibacterial soap pat dry apply the Anne Marie to wound base apply stasis pad under wound with Adaptic over top gauze and tape off load is much as possible follow-up in 1 week with podiatry Apply stasis pad to second toe plantar side
[2022-12-23 10:13] VITALS: BP 163/88; PULSE 81; RESP 18; TEMP 36.3
--- NOTE | 2022-12-23 10:19 | PN.PCM_ITS ---
History of Present Illness Date of Service: 12/23/22 Chief Complaint: Follow-up on right fifth toe plantar side left plantar great toe and left plantar second toe. History of Wound: 76-year-old white male with previous history of amputations of the toes. Appears with increase in wounds to the toes for the last 6 weeks at least. He has been seen by his own mangle roll operator Dr. Nguyen and he referred him to here. He is currently using Aquacel to his wounds. His usually helps with dressing changes without a problem. Progress of Wound: He grew a huge callus over his wound that had to be debrided off still has a hole in the top of the foot. We are going to have him follow-up with podiatry this next week and see what he thinks. I think he needs to be offloaded with the boot. We will continue with Promogran and using the stasis pads. Subjective Subjective This is a 77-year-old male who presents to the wound care center today for consultation concerning plantar hallux wound of the left foot. He is seen by Martha Alva NP for multiple forefoot wounds. He has previously healed 2 of these wounds with the plantar hallux remaining. He has been offloading with a diabetic shoe. He denies any constitutional symptoms. Has no further complaints. Objective Data Objective Data Vital Signs: Vital Signs Temp Pulse Resp BP O2 Del Method 97.3 F L 81 18 163/88 H Room Air 12/23/22 10:13 12/23/22 10:13 12/23/22 10:13 12/23/22 10:13 12/15/22 10:20 Oxygen Delivery Method Room Air Physical Exam Const alert, oriented x3 and no apparent distress General Appearance: cooperative HEENT normocephalic Eyes General Eye: normal appearance of both eyes Neck General: normal visual inspection Lymph Lymphatic: no lymphadenopathy noted and no lymphedema noted Resp normal respiratory effort Cardio regular rate and regular rhythm Extremity normal capillary refill, no joint enlargement, no calf tenderness and no pedal edema Extremity Narrative: Left lower extremity: DP and PT pulses palpable. CFT less than 4 seconds to the digits. Musculoskeletal: There is hallux extensus/cock-up deformity noted to the first digit secondary to previous tendon rupture and repair. Distal aspect of the digit is significantly dorsiflexed driving base of the proximal phalanx into the ground thus creating pressure which has caused ulceration. Muscle strength 5 of 5 age-appropriate Skin no rashes or lesions noted, skin turgor normal and no jaundice Wound Narrative: There is hallux extensus/cock-up deformity noted to the first digit secondary to previous tendon rupture and repair. Distal aspect of the digit is significantly dorsiflexed driving base of the proximal phalanx into the ground thus creating pressure which has caused ulceration. Ulceration demonstrates surrounding hyperkeratotic rim with healthy appearing granular base. No visible abscess, no palpable fluctuance/bogginess, no malodor, no purulent drainage, no erythema. No signs of infection Neuro moves all extremities Debridement Note Debridement Note Wound debrided: Plantar left hallux Laterality: Left Wound Grade/Stage: Garcia stage II Type of Debridement: Excisional debridement Anesthesia Used: 5% Lidocaine Gel Depth: Down to and including healthy tissue and in the subcutaneous layer Percentage of wound debrided: 100 Instrument Used: 3mm curette Tissue Removed: Fibrous, devitalized subcutaneous, biofilm, slough Severity: Fat Layer Exposed Amount of bleeding with debridement: Mild Bleeding Controlled with: Compression and gauze Patient tolerated procedure: Patient tolerated procedure well Post-Debridement Measurements and Additional Note: Post-Debridement Measurements/Treatment - Nurse 1 - General Ulcer Assessment Start: 12/15/22 10:18 Freq: Status: Active Protocol: REMA Activity Type Activity Date Activity User E-sign Co-sign Detail Recorded Client Recorded Date Recorded By Document 12/15/22 10:20 [facility] [id number] 12/15/22 10:27 [facility] Document 12/23/22 10:13 [id number] 12/23/22 10:16 ML 12/15/22 12/23/22 10:20 10:13 - Today's Visit Information Type of service Follow-up Visit Follow-up Visit (Physician/LOCKSTITCH SLEEVE SETTER (Physician/LOCKSTITCH SLEEVE SETTER ) ) Arrival Mode Ambulatory Ambulatory Transfer Assistance None None Patient Identification Verified (Name & Yes Yes ) Patient Requires Transmission-Based No No Precautions Safety Precautions NA Finger Stick Blood Sugar(mg/dl) (if 142 indicated): Blood Sugar Stated by Patient Vital Signs Temperature (97.8 F-99.1 F) 97.1 F L 97.3 F L Temperature Source Temporal Temporal Pulse Rate (60-100) 58 L 81 Pulse Location Monitor Monitor Respiratory Rate (12-18) 16 18 Respiratory rate source Observation Observation Oxygen Delivery Method Room Air Blood Pressure (90/60-120/80) 130/76 H 163/88 H Blood Pressure Mean (mm Hg) 94 113 Source Monitor Monitor Position Sitting Sitting Blood Pressure Location Right Arm Left Arm History Since Last Visit- (Skip if this is Patient's initial visit) Have you changed medications since your No No last visit? Any new allergies or adverse reactions No No Had a fall/change in ADL's that may No No increase risk of falls Signs or symptoms of abuse and/or No No neglect since last visit Have you been in the hospital since your No No last visit? Has dressing in place as prescribed Yes Yes Has compression in place as prescribed N/A N/A Has offloadiing in place as prescribed No N/A Experienced any changes in pain level or No No management Left Footwear Diabetic Shoe Diabetic Shoe Right Footwear Diabetic Shoe Diabetic Shoe Pain Scale: 0-10 Numeric Is Patient Pain Free? Yes Yes WC - Nurse 1 - General Ulcer Measurement Start: 12/15/22 10:18 Freq: Status: Active Protocol: Activity Type Activity Date Activity User E-sign Co-sign Detail Recorded Client Recorded Date Recorded By Document 12/15/22 10:20 [facility] [id number] 12/15/22 10:27 [facility] Document 12/23/22 10:13 [id number] 12/23/22 10:16 ML 12/15/22 12/23/22 10:20 10:13 Wound Center Nurse 1 #10 L PLANTAR -Combined with other wound No -Current Size (cm) - Length 0.3 0.5 -Current Size (cm) - Width 0.1 0.5 -Current Size (cm) - Depth 0.4 0.3 -Total Square Cm 0.03 0.25 -Date of Last Picture (Recall this 12/15/22 field) -Photo Taken Yes -Epithelialization None Present -Tunneling No -Undermining/Tunneling Yes -Undermining/Tunneling Starts (O'clock 12 ) -Undermining/Tunneling Ends (O'clock) 4 -Maximum Distance (cm) 0.6 -Circular Undermining No -Exudate Amt Medium Small -Exudate Type Serosanguineous Serosanguineous -Wound Margin Distinct, Distinct, Outline Outline Attached Attached -Granulation Amt Small (1-33%) -Granulation Quality Red -Slough/Fibrin Yes -Necrosis Amt Small (1-33%) -Necrotic Tissue Type Adherent Slough -Texture (Angie-wound Skin Appearance) Assessed,Callus Assessed ,Scarring -Moisture (Angie-wound Skin Appearance) Assessed,Dry/ Assessed Scaly -Color (Angie-wound Skin Appearance) Assessed Assessed -Temperature (Angie-wound Skin No Abnormality No Abnormality Appearance) (Pt Warm) (Pt Warm) -Tenderness on Palpation (Angie-wound No No Skin Appearance) -Ulcer Cleansing Rinsed/ Rinsed/ Irrigated with Irrigated with Saline Saline -Foul Odor after Cleansing No No -Anesthetic Used 5% Lidocaine 5% Lidocaine Gel Gel WC - Nurse 2 - General Ulcer CM Notes Start: 12/15/22 10:18 Freq: Status: Active Protocol: Activity Type Activity Date Activity User E-sign Co-sign Detail Recorded Client Recorded Date Recorded By Document 12/15/22 10:35 MW [id number] 12/15/22 10:47 MW 12/15/22 10:35 Wound Center Nurse 2 -Time 10:36 -Correct Patient Yes -Correct Side, Site, Position Yes -Correct Procedure Yes -Procedure Performed Yes -Type of Procedure Debridement -Clinical Debridement Subcutaneous -Tissue Removed Subcutaneous -Post Debridement (cm) - Length 0.3 -Post Debridement (cm) - Width 0.6 -Post Debridement (cm) - Depth 0.2 -Total Square (Post) (cm) 0.18 -Area of Debridement (cm) - Length 0.3 -Area of Debridement (cm) - Width 0.6 -Total Square (Area) (cm) 0.18 -Tunneling No -Undermining/Tunneling No -Circular Undermining No -Wound/Ulcer Outcome Not Healed -Ulcer Cleansing Rinsed/ Irrigated with Saline -Foul Odor after Cleansing No -Bioengineered Tissue No -Bleeding Controlled with Pressure -Offloading No -Debridement - Subq, 1st 20sq cm Yes Pain Scale: 0-10 Numeric Is Patient Pain Free? Yes JONNY - Nurse 3 - General Ulcer D/C NN Start: 12/15/22 10:18 Freq: Status: Active Protocol: Activity Type Activity Date Activity User E-sign Co-sign Detail Recorded Client Recorded Date Recorded By Document 12/15/22 10:57 [facility] [id number] 12/15/22 11:00 [facility] 12/15/22 10:57 Wound Care Center Nurse 3 #10 L PLANTAR -Ulcer Cleansing Rinsed/ Irrigated with Saline -Foul Odor after Cleansing No -Primary Dressing Applied NonAdherent Contact Layer, Promogran Anne Marie Matter -Other Dressing stasis pad -Primary Dressing Covered/Secured with Dry Gauze & Roll Gauze, Secured with Tape -Promogran Anne Marie Matter 1 Treatment Response Procedure Tolerated Well Pain Scale: 0-10 Numeric Is Patient Pain Free? Yes WC - Visit Discharge Discharge Condition Stable Ambulatory Status Ambulatory Transportation Private Auto Assessment/Plan Assessment/Plan (1) Diabetic foot ulcer associated with type 2 diabetes mellitus: CODE(S): E11.621 - Type 2 diabetes mellitus with foot ulcer; L97.509 - Non-pressure chronic ulcer of other part of unspecified foot with unspecified severity QUALIFIERS: Diabetic foot ulcer location: toe Laterality: left Non-pressure ulcer stage: with bone involvement without evidence of necrosis Qualified Code(s): E11.621 - Type 2 diabetes mellitus with foot ulcer; L97.526 - 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 involvement without evidence of necrosis (2) Decubitus ulcer limited to breakdown of skin (stage 2): CODE(S): L89.92 - Pressure ulcer of unspecified site, stage 2 QUALIFIERS: Laterality: left Pressure injury location: toe Qualified Code(s): L89.892 - Pressure ulcer of other site, stage 2 (3) 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: CODE(S): M20.42 - Other hammer toe(s) (acquired), left foot (4) Chronic ulcer of right foot with fat layer exposed: CODE(S): L97.512 - Non-pressure chronic ulcer of other part of right foot with fat layer exposed (5) Acquired hallux extensus: CODE(S): M20.5X9 - Other deformities of toe(s) (acquired), unspecified foot (6) Diabetes mellitus: CODE(S): E11.9 - Type 2 diabetes mellitus without complications QUALIFIERS: Diabetes mellitus complication detail: with foot ulcer Diabetes mellitus complication status: with skin complications Diabetes mellitus mcc insulin use: without mcc use Diabetes mellitus type: type 2 Qualified Code(s): E11.621 - Type 2 diabetes mellitus with foot ulcer; L97.509 - Non-pressure chronic ulcer of other part of unspecified foot with unspecified severity PLAN: Plan Patient seen and evaluated Patient reported several years ago being on Levaquin and ruptured the extensor tendon to his hallux. He underwent repair of the extensor tendon by Dr. Nguyen in [place]. Over the years the hallux has undergone deformity. There is hallux extensus/cock-up deformity noted to the first digit secondary to previous tendon rupture and repair. Distal aspect of the digit is significantly dorsiflexed driving base of the proximal phalanx into the ground thus creating pressure which has caused ulceration. Ulcerative site was debrided as noted in the clinical panel above. Ulceration measures 0.6 cm x 0.7 cm x 0.1 cm. Ulceration demonstrates healthy granular base. No signs of infection. Ulcerative site dressed with Anne Marie and dry sterile dressing. Plantar offloading pad applied sub first metatarsal head. This will aid in elevation of the metatarsal head and thus decrease pressure at the base of the hallux. Radiographs were ordered 12/23/22 to evaluate deformity. Radiographic impression stable fluid no new finding. Diffuse osteoarthrosis with postsurgical changes.. I also interpreted the radiographs independently which demonstrates hallux extensus consistent with exam findings with prominent base of the proximal phalanx. There is also osteoarthritic changes to the hallucal interphalangeal joint noted. No osteomyelitis noted. There is diffuse soft tissue swelling of the forefoot. I discussed the cause of his ulceration today in relation to the deformity of the hallux. Discussed continued offloading to aid in healing the ulcerative site. I also discussed surgical intervention by means of either hallucal interphalangeal joint fusion or Odonnell Procedure versus Cosme osteotomy of the hallux proximal phalanx base to aid in offloading the ulcerative site. Patient states that he will need to think about having this intervention. I discussed the signs and symptoms to continue to observe for for infection. He was instructed if the site becomes more red about the wound that moves up onto the foot, or if he has any purulent drainage from the wound site, increased foul odor, or if he experiences any fever greater than 101 degree, nausea, vomiting, or chills that these are signs of a progressing infection and he needs to report straight to the ED. Patient voices understanding of this today. Following recommendations were made: Dressing: Anne Marie and dry sterile dressing with plantar offloading pad of the first metatarsal head Wash: Soap and water. Pat the area dry. Tissue growth optimization: Anne Marie Offload: Plantar offloading pad to the first metatarsal head and continued use of diabetic shoes with protective inserts. Vascular: DP and PT pulses are palpable with adequate capillary fill time. I do not feel vascular is impeding healing progress. 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 I answered all the patient's questions. To return to the wound healing center in 1 week or call sooner if the patient has any questions or concerns. Note: [employer] speech recognition mobile sales technician software was used to create portions of this document. Sound-alike and misspelled words, as well as other mobile sales technician errors may be contained in the documentation.
--- NOTE | 2022-12-23 11:24 | RAD_ITS ---
STUDY: X-RAY - LEFT FOOT CLINICAL: Male, 77 years old. Wound. TECHNIQUE: 3 view(s) of the foot. COMPARISON: September 29, 2022. FINDINGS: Osteopenia. Mild arthrosis of the tibiotalar and subtalar joints, unchanged. Stable inferior calcaneal spur. Moderate arthrosis of the midfoot, unchanged. Moderate arthrosis of the first through third TMT joints. Normal fourth and fifth TMT joints. Moderate to marked arthrosis of the MTP and IP joints with hammertoe deformities. Stable fusion of the phalanges of the third digit. Apparent resection of the majority of the distal phalanx of the fourth digit, unchanged. Stable soft tissue swelling over the first through fifth phalanges. RAD/Foot min 3 Views IMPRESSION: Stable fluid with no new finding. Diffuse osteoarthrosis with postsurgical changes. Electronically Signed: Navid Oconnor, at 13:30 EST ,
--- NOTE | 2022-12-30 10:18 | PN.PCM_ITS ---
History of Present Illness Date of Service: 12/30/22 Chief Complaint: Follow-up on right fifth toe plantar side left plantar great toe and left plantar second toe. History of Wound: 76-year-old white male with previous history of amputations of the toes. Appears with increase in wounds to the toes for the last 6 weeks at least. He has been seen by his own promotor group [employer] Dr. Nguyen and he referred him to here. He is currently using Aquacel to his wounds. His usually helps with dressing changes without a problem. Progress of Wound: He grew a huge callus over his wound that had to be debrided off still has a hole in the top of the foot. We are going to have him follow-up with podiatry this next week and see what he thinks. I think he needs to be offloaded with the boot. We will continue with Promogran and using the stasis pads. Subjective Subjective This is a 77-year-old male who presents to the wound care center today for consultation concerning plantar hallux wound of the left foot.? He is seen by Martha Alva NP for multiple forefoot wounds.? He has previously healed 2 of these wounds with the plantar hallux remaining.? He has been offloading with a diabetic shoe.? He denies any constitutional symptoms.? Has no further complaints. Objective Data Objective Data Vital Signs: Vital Signs Temp Pulse Resp BP O2 Del Method 97.3 F L 81 18 163/88 H Room Air 12/23/22 10:13 12/23/22 10:13 12/23/22 10:13 12/23/22 10:13 12/15/22 10:20 Oxygen Delivery Method Room Air Physical Exam Const alert, oriented x3 and no apparent distress General Appearance: cooperative HEENT normocephalic Eyes General Eye: normal appearance of both eyes Neck General: normal visual inspection Lymph Lymphatic: no lymphadenopathy noted and no lymphedema noted Resp normal respiratory effort Cardio regular rate and regular rhythm Extremity normal capillary refill, no joint enlargement, no calf tenderness and no pedal edema Extremity Narrative: Left lower extremity: DP and PT pulses palpable. CFT less than 4 seconds to the digits. Musculoskeletal: There is hallux extensus/cock-up deformity noted to the first digit secondary to previous tendon rupture and repair. Distal aspect of the digit is significantly dorsiflexed driving base of the proximal phalanx into the ground thus creating pressure which has caused ulceration. Muscle strength 5 of 5 age-appropriate Skin no rashes or lesions noted, skin turgor normal and no jaundice Wound Narrative: There is hallux extensus/cock-up deformity noted to the first digit secondary to previous tendon rupture and repair. Distal aspect of the digit is significantly dorsiflexed driving base of the proximal phalanx into the ground thus creating pressure which has caused ulceration. Ulceration demonstrates surrounding hyperkeratotic rim with healthy appearing granular base. No visible abscess, no palpable fluctuance/bogginess, no malodor, no purulent drainage, no erythema. No signs of infection Neuro moves all extremities Debridement Note Debridement Note Wound debrided: Plantar hallux base Laterality: Left Wound Grade/Stage: Garcia stage II Type of Debridement: Excisional debridement Anesthesia Used: 5% Lidocaine Gel Depth: Down to and including healthy tissue and in the subcutaneous layer Percentage of wound debrided: 100 Instrument Used: 3mm curette Tissue Removed: Fibrous, devitalized subcutaneous, biofilm, slough Severity: Fat Layer Exposed Amount of bleeding with debridement: Mild Bleeding Controlled with: Compression and gauze Patient tolerated procedure: Patient tolerated procedure well Post-Debridement Measurements and Additional Note: Post-Debridement Measurements/Treatment - Nurse 1 - General Ulcer Assessment Start: 12/15/22 10:18 Freq: Status: Active Protocol: REMA Activity Type Activity Date Activity User E-sign Co-sign Detail Recorded Client Recorded Date Recorded By Document 12/15/22 10:20 [facility] [id number] 12/15/22 10:27 [facility] Document 12/23/22 10:13 ML [id number] 12/23/22 10:16 ML 12/15/22 12/23/22 10:20 10:13 - Today's Visit Information Type of service Follow-up Visit Follow-up Visit (Physician/GENERAL SCIENCE TEACHER (Physician/GENERAL SCIENCE TEACHER ) ) Arrival Mode Ambulatory Ambulatory Transfer Assistance None None Patient Identification Verified (Name & Yes Yes ) Patient Requires Transmission-Based No No Precautions Safety Precautions NA Finger Stick Blood Sugar(mg/dl) (if 142 indicated): Blood Sugar Stated by Patient Vital Signs Temperature (97.8 F-99.1 F) 97.1 F L 97.3 F L Temperature Source Temporal Temporal Pulse Rate (60-100) 58 L 81 Pulse Location Monitor Monitor Respiratory Rate (12-18) 16 18 Respiratory rate source Observation Observation Oxygen Delivery Method Room Air Blood Pressure (90/60-120/80) 130/76 H 163/88 H Blood Pressure Mean (mm Hg) 94 113 Source Monitor Monitor Position Sitting Sitting Blood Pressure Location Right Arm Left Arm History Since Last Visit- (Skip if this is Patient's initial visit) Have you changed medications since your No No last visit? Any new allergies or adverse reactions No No Had a fall/change in ADL's that may No No increase risk of falls Signs or symptoms of abuse and/or No No neglect since last visit Have you been in the hospital since your No No last visit? Has dressing in place as prescribed Yes Yes Has compression in place as prescribed N/A N/A Has offloadiing in place as prescribed No N/A Experienced any changes in pain level or No No management Left Footwear Diabetic Shoe Diabetic Shoe Right Footwear Diabetic Shoe Diabetic Shoe Pain Scale: 0-10 Numeric Is Patient Pain Free? Yes Yes WC - Nurse 1 - General Ulcer Measurement Start: 12/15/22 10:18 Freq: Status: Active Protocol: Activity Type Activity Date Activity User E-sign Co-sign Detail Recorded Client Recorded Date Recorded By Document 12/15/22 10:20 [facility] [id number] 12/15/22 10:27 [facility] Document 12/23/22 10:13 [id number] 12/23/22 10:16 ML 12/15/22 12/23/22 10:20 10:13 Wound Center Nurse 1 #10 L PLANTAR -Combined with other wound No -Current Size (cm) - Length 0.3 0.5 -Current Size (cm) - Width 0.1 0.5 -Current Size (cm) - Depth 0.4 0.3 -Total Square Cm 0.03 0.25 -Date of Last Picture (Recall this 12/15/22 field) -Photo Taken Yes -Epithelialization None Present -Tunneling No -Undermining/Tunneling Yes -Undermining/Tunneling Starts (O'clock 12 ) -Undermining/Tunneling Ends (O'clock) 4 -Maximum Distance (cm) 0.6 -Circular Undermining No -Exudate Amt Medium Small -Exudate Type Serosanguineous Serosanguineous -Wound Margin Distinct, Distinct, Outline Outline Attached Attached -Granulation Amt Small (1-33%) -Granulation Quality Red -Slough/Fibrin Yes -Necrosis Amt Small (1-33%) -Necrotic Tissue Type Adherent Slough -Texture (Angie-wound Skin Appearance) Assessed,Callus Assessed ,Scarring -Moisture (Angie-wound Skin Appearance) Assessed,Dry/ Assessed Scaly -Color (Angie-wound Skin Appearance) Assessed Assessed -Temperature (Angie-wound Skin No Abnormality No Abnormality Appearance) (Pt Warm) (Pt Warm) -Tenderness on Palpation (Angie-wound No No Skin Appearance) -Ulcer Cleansing Rinsed/ Rinsed/ Irrigated with Irrigated with Saline Saline -Foul Odor after Cleansing No No -Anesthetic Used 5% Lidocaine 5% Lidocaine Gel Gel WC - Nurse 2 - General Ulcer CM Notes Start: 12/15/22 10:18 Freq: Status: Active Protocol: Activity Type Activity Date Activity User E-sign Co-sign Detail Recorded Client Recorded Date Recorded By Document 12/15/22 10:35 MW [id number] 12/15/22 10:47 MW Document 12/23/22 12:00 PL [id number] 12/23/22 12:01 PL 12/15/22 12/23/22 10:35 12:00 Wound Center Nurse 2 #10 L PLANTAR -Time 10:36 10:36 -Correct Patient Yes Yes -Correct Side, Site, Position Yes Yes -Correct Procedure Yes Yes -Procedure Performed Yes Yes -Type of Procedure Debridement Debridement -Clinical Debridement Subcutaneous Subcutaneous -Tissue Removed Subcutaneous Subcutaneous -Post Debridement (cm) - Length 0.3 0.6 -Post Debridement (cm) - Width 0.6 0.7 -Post Debridement (cm) - Depth 0.2 0.2 -Total Square (Post) (cm) 0.18 0.42 -Area of Debridement (cm) - Length 0.3 0.6 -Area of Debridement (cm) - Width 0.6 0.7 -Total Square (Area) (cm) 0.18 0.42 -Tunneling No No -Undermining/Tunneling No No -Circular Undermining No No -Wound/Ulcer Outcome Not Healed Not Healed -Ulcer Cleansing Rinsed/ Rinsed/ Irrigated with Irrigated with Saline Saline -Foul Odor after Cleansing No No -Bioengineered Tissue No No -Bleeding Controlled with Pressure Pressure -Treatment Response Procedure Tolerated Well -Offloading No -Debridement - Subq, 1st 20sq cm Yes Yes Pain Scale: 0-10 Numeric Is Patient Pain Free? Yes Yes - Nurse 3 - General Ulcer D/C NN Start: 12/15/22 10:18 Freq: Status: Active Protocol: Activity Type Activity Date Activity User E-sign Co-sign Detail Recorded Client Recorded Date Recorded By Document 12/15/22 10:57 [facility] [id number] 12/15/22 11:00 [facility] Document 12/23/22 10:51 AK [id number] 12/23/22 10:52 AK 12/15/22 12/23/22 10:57 10:51 Wound Care Center Nurse 3 #10 L PLANTAR -Ulcer Cleansing Rinsed/ Rinsed/ Irrigated with Irrigated with Saline Saline -Foul Odor after Cleansing No No -Negative Pressure Wound Therapy N/A -Primary Dressing Applied NonAdherent NonAdherent Contact Layer, Contact Layer, Promogran Promogran Anne Marie Matter Anne Marie Matter -Other Dressing stasis pad stasis pad -Primary Dressing Covered/Secured with Dry Gauze & Dry Gauze & Roll Gauze, Roll Gauze, Secured with Secured with Tape Tape -Promogran Anne Marie Matter 1 1 Left -Lotion applied to leg before No compression wrap -Other own tubi Treatment Response Procedure Tolerated Well Pain Scale: 0-10 Numeric Is Patient Pain Free? Yes Yes - Visit Discharge Discharge Condition Stable Ambulatory Status Ambulatory Transportation Private Auto Assessment/Plan Assessment/Plan (1) Diabetic foot ulcer associated with type 2 diabetes mellitus: CODE(S): E11.621 - Type 2 diabetes mellitus with foot ulcer; L97.509 - Non-pressure chronic ulcer of other part of unspecified foot with unspecified severity QUALIFIERS: Diabetic foot ulcer location: toe Laterality: left Non-pressure ulcer stage: with bone involvement without evidence of necrosis Qualified Code(s): E11.621 - Type 2 diabetes mellitus with foot ulcer; L97.526 - 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 involvement without evidence of necrosis (2) Decubitus ulcer limited to breakdown of skin (stage 2): CODE(S): L89.92 - Pressure ulcer of unspecified site, stage 2 QUALIFIERS: Laterality: left Pressure injury location: toe Qualified Code(s): L89.892 - Pressure ulcer of other site, stage 2 (3) 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: CODE(S): M20.42 - Other hammer toe(s) (acquired), left foot (4) Chronic ulcer of right foot with fat layer exposed: CODE(S): L97.512 - Non-pressure chronic ulcer of other part of right foot with fat layer exposed (5) Acquired hallux extensus: CODE(S): M20.5X9 - Other deformities of toe(s) (acquired), unspecified foot (6) Diabetes mellitus: CODE(S): E11.9 - Type 2 diabetes mellitus without complications QUALIFIERS: Diabetes mellitus complication detail: with foot ulcer Diabetes mellitus complication status: with skin complications Diabetes mellitus prison insulin use: without moth exterminator use Diabetes mellitus type: type 2 Qualified Code(s): E11.621 - Type 2 diabetes mellitus with foot ulcer; L97.509 - Non-pressure chronic ulcer of other part of unspecified foot with unspecified severity PLAN: Plan Patient seen and evaluated Patient reported several years ago being on Levaquin and ruptured the extensor tendon to his hallux. He underwent repair of the extensor tendon by Dr. Nguyen in [place]. Over the years the hallux has undergone deformity. There is hallux extensus/cock-up deformity noted to the first digit secondary to previous tendon rupture and repair. Distal aspect of the digit is significantly dorsiflexed driving base of the proximal phalanx into the ground thus creating pressure which has caused ulceration. Ulcerative site was debrided as noted in the clinical panel above. Ulceration measures 0.6 cm x 0.9 cm x 0.1 cm. Ulceration demonstrates healthy granular base. No signs of infection. Ulcerative site dressed with Anne Marie and dry sterile dressing. Plantar offloading pad applied sub first metatarsal head. This will aid in elevation of the metatarsal head and thus decrease pressure at the base of the hallux. Radiographs were ordered 12/23/22 to evaluate deformity. Radiographic impression stable fluid no new finding. Diffuse osteoarthrosis with postsurgical changes.. I also interpreted the radiographs independently which demonstrates hallux extensus consistent with exam findings with prominent base of the proximal phalanx. There is also osteoarthritic changes to the hallucal interphalangeal joint noted. No osteomyelitis noted. There is diffuse soft tissue swelling of the forefoot. I discussed the cause of his ulceration today with him and his in relation to the deformity of the hallux. Discussed continued offloading to aid in heali ng the ulcerative site. I also discussed surgical intervention by means of either hallucal interphalangeal joint fusion or Odonnell Procedure versus Cosme osteotomy of the hallux proximal phalanx base to aid in offloading the ulcerative site. Patient states that he will need to think about having this intervention and discuss further with his . Discussed with him today that I feel removing the portion of bone would be his best shot to heal. I discussed the signs and symptoms to continue to observe for for infection. He was instructed if the site becomes more red about the wound that moves up onto the foot, or if he has any purulent drainage from the wound site, increased foul odor, or if he experiences any fever greater than 101 degree, nausea, vomiting, or chills that these are signs of a progressing infection and he needs to report straight to the ED. Patient voices understanding of this today. Following recommendations were made: Dressing: Anne Marie and dry sterile dressing with plantar offloading pad of the first metatarsal head Wash: Soap and water. Pat the area dry. Tissue growth optimization: Anne Marie Offload: Plantar offloading pad to the first metatarsal head and continued use of diabetic shoes with protective inserts. Vascular: DP and PT pulses are palpable with adequate capillary fill time. I do not feel vascular is impeding healing progress. 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 I answered all the patient's questions. To return to the wound healing center in 1 week or call sooner if the patient has any questions or concerns. Note: [employer] speech recognition supervisor trust accounts software was used to create portions of this document. Sound-alike and misspelled words, as well as other supervisor trust accounts errors may be contained in the documentation.
[2022-12-30 10:20] VITALS: BP 161/68; PULSE 76; RESP 18; TEMP 36.5
--- NOTE | 2023-01-06 10:21 | PCM.WC.PN ---
History of Present Illness Date of Service: 01/06/23 Chief Complaint: Follow-up on right fifth toe plantar side left plantar great toe and left plantar second toe. History of Wound: 76-year-old white male with previous history of amputations of the toes. Appears with increase in wounds to the toes for the last 6 weeks at least. He has been seen by his own vest baster Dr. Nguyen and he referred him to here. He is currently using Aquacel to his wounds. His usually helps with dressing changes without a problem. Progress of Wound: He grew a huge callus over his wound that had to be debrided off still has a hole in the top of the foot. We are going to have him follow-up with podiatry this next week and see what he thinks. I think he needs to be offloaded with the boot. We will continue with Promogran and using the stasis pads. Subjective Subjective This is a 77-year-old male who presents to the wound care center today for consultation concerning plantar hallux wound of the left foot.? He was seen by Martha Alva NP for multiple forefoot wounds.? He has previously healed 2 of these wounds with the plantar hallux remaining. Plantar hallux wound has demonstrated delayed healing. He has been offloading with a diabetic shoe.? He denies any constitutional symptoms.?Has no further complaints. Objective Data Objective Data Vital Signs: Vital Signs Temp Pulse Resp BP O2 Del Method 97.7 F L 76 18 161/68 H Room Air 12/30/22 10:20 12/30/22 10:20 12/30/22 10:20 12/30/22 10:20 12/15/22 10:20 Oxygen Delivery Method Room Air Physical Exam Const alert, oriented x3 and no apparent distress General Appearance: cooperative HEENT normocephalic Eyes General Eye: normal appearance of both eyes Neck General: normal visual inspection Lymph Lymphatic: no lymphadenopathy noted and no lymphedema noted Resp normal respiratory effort Cardio regular rate and regular rhythm Extremity normal capillary refill, no joint enlargement, no calf tenderness and no pedal edema Extremity Narrative: Left lower extremity: DP and PT pulses palpable. CFT less than 4 seconds to the digits. Musculoskeletal: There is hallux extensus/cock-up deformity noted to the first digit secondary to previous tendon rupture and repair. Distal aspect of the digit is significantly dorsiflexed driving base of the proximal phalanx into the ground thus creating pressure which has caused ulceration. Muscle strength 5 of 5 age-appropriate Skin no rashes or lesions noted, skin turgor normal and no jaundice Wound Narrative: There is hallux extensus/cock-up deformity noted to the first digit secondary to previous tendon rupture and repair. Distal aspect of the digit is significantly dorsiflexed driving base of the proximal phalanx into the ground thus creating pressure which has caused ulceration. Ulceration demonstrates surrounding hyperkeratotic rim with healthy appearing granular base. No visible abscess, no palpable fluctuance/bogginess, no malodor, no purulent drainage, no erythema. No signs of infection Neuro moves all extremities Debridement Note Debridement Note Wound debrided: Base of the plantar hallux Laterality: Left Wound Grade/Stage: Garcia stage II Type of Debridement: Excisional debridement Anesthesia Used: 5% Lidocaine Gel Depth: Down to and including healthy tissue and in the subcutaneous layer Percentage of wound debrided: 100 Instrument Used: 3mm curette Tissue Removed: fibrous, devitalized subcutaneous, biofilm, slough Severity: Fat Layer Exposed Amount of bleeding with debridement: Mild Bleeding Controlled with: Compression and gauze Patient tolerated procedure: Patient tolerated procedure well Post-Debridement Measurements and Additional Note: Post-Debridement Measurements/Treatment - Nurse 1 - General Ulcer Assessment Start: 12/15/22 10:18 Freq: Status: Active Protocol: REMA Activity Type Activity Date Activity User E-sign Co-sign Detail Recorded Client Recorded Date Recorded By Document 12/15/22 10:20 [facility] [id number] 12/15/22 10:27 [facility] Document 12/23/22 10:13 [id number] 12/23/22 10:16 Document 12/30/22 10:20 [id number] 12/30/22 10:26 12/15/22 12/23/22 12/30/22 10:20 10:13 10:20 - Today's Visit Information Type of service Follow-up Visit Follow-up Visit Follow-up Visit (Physician/[employer] (Physician/[employer] (Physician/[employer] ) ) ) Arrival Mode Ambulatory Ambulatory Ambulatory Transfer Assistance None None Patient Identification Verified (Name & Yes Yes Yes ) Patient Requires Transmission-Based No No No Precautions Safety Precautions NA Finger Stick Blood Sugar(mg/dl) (if 142 180 indicated): Blood Sugar Stated by Stated by Patient Patient Vital Signs Temperature (97.8 F-99.1 F) 97.1 F L 97.3 F L 97.7 F L Temperature Source Temporal Temporal Temporal Pulse Rate (60-100) 58 L 81 76 Pulse Location Monitor Monitor Monitor Respiratory Rate (12-18) 16 18 18 Respiratory rate source Observation Observation Observation Oxygen Delivery Method Room Air Blood Pressure (90/60-120/80) 130/76 H 163/88 H 161/68 H Blood Pressure Mean (mm Hg) 94 113 99 Source Monitor Monitor Monitor Position Sitting Sitting Semi-Fowlers Blood Pressure Location Right Arm Left Arm Left Arm History Since Last Visit- (Skip if this is Patient's initial visit) Have you changed medications since your No No No last visit? Any new allergies or adverse reactions No No No Had a fall/change in ADL's that may No No No increase risk of falls Signs or symptoms of abuse and/or No No No neglect since last visit Have you been in the hospital since your No No No last visit? Has dressing in place as prescribed Yes Yes Yes Has compression in place as prescribed N/A N/A Yes Has offloadiing in place as prescribed No N/A Yes Experienced any changes in pain level or No No No management Left Footwear Diabetic Shoe Diabetic Shoe Diabetic Shoe Right Footwear Diabetic Shoe Diabetic Shoe Diabetic Shoe Pain Scale: 0-10 Numeric Is Patient Pain Free? Yes Yes Yes WC - Nurse 1 - General Ulcer Measurement Start: 12/15/22 10:18 Freq: Status: Active Protocol: Activity Type Activity Date Activity User E-sign Co-sign Detail Recorded Client Recorded Date Recorded By Document 12/15/22 10:20 [facility] [id number] 12/15/22 10:27 BMF Document 12/23/22 10:13 ML [id number] 12/23/22 10:16 ML Document 12/30/22 10:20 [id number] 12/30/22 10:26 JF 12/15/22 12/23/22 12/30/22 10:20 10:13 10:20 Wound Center Nurse 1 #10 L PLANTAR -Combined with other wound No No -Current Size (cm) - Length 0.3 0.5 0.4 -Current Size (cm) - Width 0.1 0.5 0.4 -Current Size (cm) - Depth 0.4 0.3 0.3 -Total Square Cm 0.03 0.25 0.16 -Date of Last Picture (Recall this 12/15/22 field) -Photo Taken Yes Yes -Epithelialization None Present None Present -Tunneling No No -Undermining/Tunneling Yes No -Undermining/Tunneling Starts (O'clock 12 ) -Undermining/Tunneling Ends (O'clock) 4 -Maximum Distance (cm) 0.6 -Circular Undermining No No -Exudate Amt Medium Small Small -Exudate Type Serosanguineous Serosanguineous Serosanguineous -Wound Margin Distinct, Distinct, Flat & Intact Outline Outline Attached Attached -Granulation Amt Small (1-33%) Medium (34-66%) -Granulation Quality [place] -Slough/Fibrin Yes Yes -Necrosis Amt Small (1-33%) Small (1-33%) -Necrotic Tissue Type Adherent Slough Adherent Slough -Structure Exposed N/A -Texture (Angie-wound Skin Appearance) Assessed,Callus Assessed Assessed,Callus ,Scarring -Moisture (Angie-wound Skin Appearance) Assessed,Dry/ Assessed Assessed,Dry/ Scaly Scaly -Color (Angie-wound Skin Appearance) Assessed Assessed Assessed -Temperature (Angie-wound Skin No Abnormality No Abnormality No Abnormality Appearance) (Pt Warm) (Pt Warm) (Pt Warm) -Tenderness on Palpation (Angie-wound No No No Skin Appearance) -Ulcer Cleansing Rinsed/ Rinsed/ Rinsed/ Irrigated with Irrigated with Irrigated with Saline Saline Saline -Foul Odor after Cleansing No No No -Anesthetic Used 5% Lidocaine 5% Lidocaine 5% Lidocaine Gel Gel Gel Lower Limb Edema Present NA WC - Nurse 2 - General Ulcer CM Notes Start: 12/15/22 10:18 Freq: Status: Active Protocol: Activity Type Activity Date Activity User E-sign Co-sign Detail Recorded Client Recorded Date Recorded By Document 12/15/22 10:35 MW [id number] 12/15/22 10:47 MW Document 12/23/22 12:00 PL [id number] 12/23/22 12:01 PL Document 12/30/22 11:56 PL [id number] 12/30/22 11:57 PL 12/15/22 12/23/22 12/30/22 10:35 12:00 11:56 Wound Center Nurse 2 #10 L PLANTAR -Time 10:36 10:36 10:44 -Correct Patient Yes Yes Yes -Correct Side, Site, Position Yes Yes Yes -Correct Procedure Yes Yes Yes -Procedure Performed Yes Yes Yes -Type of Procedure Debridement Debridement Debridement -Clinical Debridement Subcutaneous Subcutaneous Subcutaneous -Tissue Removed Subcutaneous Subcutaneous Subcutaneous -Post Debridement (cm) - Length 0.3 0.6 0.6 -Post Debridement (cm) - Width 0.6 0.7 0.9 -Post Debridement (cm) - Depth 0.2 0.2 0.1 -Total Square (Post) (cm) 0.18 0.42 0.54 -Area of Debridement (cm) - Length 0.3 0.6 0.6 -Area of Debridement (cm) - Width 0.6 0.7 0.9 -Total Square (Area) (cm) 0.18 0.42 0.54 -Tunneling No No No -Undermining/Tunneling No No No -Circular Undermining No No No -Wound/Ulcer Outcome Not Healed Not Healed Not Healed -Ulcer Cleansing Rinsed/ Rinsed/ Rinsed/ Irrigated with Irrigated with Irrigated with Saline Saline Saline -Foul Odor after Cleansing No No No -Bioengineered Tissue No No No -Bleeding Controlled with Pressure Pressure Pressure -Treatment Response Procedure Procedure Tolerated Well Tolerated Well -Offloading No -Debridement - Subq, 1st 20sq cm Yes Yes Yes Pain Scale: 0-10 Numeric Is Patient Pain Free? Yes Yes Yes - Nurse 3 - General Ulcer D/C NN Start: 12/15/22 10:18 Freq: Status: Active Protocol: Activity Type Activity Date Activity User E-sign Co-sign Detail Recorded Client Recorded Date Recorded By Document 12/15/22 10:57 [facility] [id number] 12/15/22 11:00 BM Document 12/23/22 10:51 AK [id number] 12/23/22 10:52 AK Document 12/30/22 11:11 ML [id number] 12/30/22 11:12 ML 12/15/22 12/23/22 12/30/22 10:57 10:51 11:11 Wound Care Center Nurse 3 #10 L PLANTAR -Ulcer Cleansing Rinsed/ Rinsed/ Rinsed/ Irrigated with Irrigated with Irrigated with Saline Saline Saline -Foul Odor after Cleansing No No -Negative Pressure Wound Therapy N/A -Primary Dressing Applied NonAdherent NonAdherent Promogran Contact Layer, Contact Layer, Anne Marie Matter Promogran Promogran Anne Marie Matter Anne Marie Matter -Other Dressing stasis pad stasis pad adaptic,stasis pad -Primary Dressing Covered/Secured with Dry Gauze & Dry Gauze & Dry Gauze & Roll Gauze, Roll Gauze, Roll Gauze, Secured with Secured with Secured with Tape Tape Tape -Promogran Anne Marie Matter 1 1 1 Left -Lotion applied to leg before No compression wrap -Other own tubi Treatment Response Procedure Tolerated Well Pain Scale: 0-10 Numeric Is Patient Pain Free? Yes Yes Yes WC - Visit Discharge Discharge Condition Stable Ambulatory Status Ambulatory Transportation Private Auto Assessment/Plan Assessment/Plan (1) Diabetic foot ulcer associated with type 2 diabetes mellitus: CODE(S): E11.621 - Type 2 diabetes mellitus with foot ulcer; L97.509 - Non-pressure chronic ulcer of other part of unspecified foot with unspecified severity QUALIFIERS: Diabetic foot ulcer location: toe Laterality: left Non-pressure ulcer stage: with bone involvement without evidence of necrosis Qualified Code(s): E11.621 - Type 2 diabetes mellitus with foot ulcer; L97.526 - 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 involvement without evidence of necrosis (2) Decubitus ulcer limited to breakdown of skin (stage 2): CODE(S): L89.92 - Pressure ulcer of unspecified site, stage 2 QUALIFIERS: Laterality: left Pressure injury location: toe Qualified Code(s): L89.892 - Pressure ulcer of other site, stage 2 (3) 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: CODE(S): M20.42 - Other hammer toe(s) (acquired), left foot (4) Acquired hallux extensus: CODE(S): M20.5X9 - Other deformities of toe(s) (acquired), unspecified foot (5) Diabetes mellitus: CODE(S): E11.9 - Type 2 diabetes mellitus without complications QUALIFIERS: Diabetes mellitus complication detail: with foot ulcer Diabetes mellitus complication status: with skin complications Diabetes mellitus intermediate insulin use: without intermediate use Diabetes mellitus type: type 2 Qualified Code(s): E11.621 - Type 2 diabetes mellitus with foot ulcer; L97.509 - Non-pressure chronic ulcer of other part of unspecified foot with unspecified severity (6) Non-pressure chronic ulcer of other part of left foot with fat layer exposed: CODE(S): L97.522 - Non-pressure chronic ulcer of other part of left foot with fat layer exposed PLAN: Plan Patient seen and evaluated Patient reported several years ago being on Levaquin and ruptured the extensor tendon to his hallux. He underwent repair of the extensor tendon by Dr. Nguyen in [place]. Over the years the hallux has undergone deformity. There is hallux extensus/cock-up deformity noted to the first digit secondary to previous tendon rupture and repair. Distal aspect of the digit is significantly dorsiflexed driving base of the proximal phalanx into the ground thus creating pressure which has caused ulceration. Ulcerative site was debrided as noted in the clinical panel above. Ulceration measures 0.5 cm x 0.7 cm x 0.1 cm. Ulceration demonstrates healthy granular base. No signs of infection. Ulceration continues to decrease in size with offloading. Ulcerative site dressed with Anne Marie and dry sterile dressing. Plantar offloading pad applied sub first metatarsal head. This will aid in elevation of the metatarsal head and thus decrease pressure at the base of the hallux. Radiographs were ordered 12/23/22 to evaluate deformity. Radiographic impression stable fluid no new finding. Diffuse osteoarthrosis with postsurgical changes.. I also interpreted the radiographs independently which demonstrates hallux extensus consistent with exam findings with prominent base of the proximal phalanx. There is also osteoarthritic changes to the hallucal interphalangeal joint noted. No osteomyelitis noted. There is diffuse soft tissue swelling of the forefoot. I discussed the cause of his ulceration with him and his in relation to the deformity of the hallux. Discussed continued offloading to aid in healing the ulcerative site. I also discussed surgical intervention by means of either hallucal interphalangeal joint fusion or Odonnell Procedure versus Cosme osteotomy of the hallux proximal phalanx base to aid in offloading the ulcerative site. Patient states that he will need to think about having this intervention and discuss further with his . Discussed with him today that I feel removing the portion of bone would be his best shot to heal. He states he will consider surgical intervention following his scheduled procedure on his eye. I discussed the signs and symptoms to continue to observe for for infection. He was instructed if the site becomes more red about the wound that moves up onto the foot, or if he has any purulent drainage from the wound site, increased foul odor, or if he experiences any fever greater than 101 degree, nausea, vomiting, or chills that these are signs of a progressing infection and he needs to report straight to the ED. Patient voices understanding of this today. Following recommendations were made: Dressing: Anne Marie and dry sterile dressing with plantar offloading pad of the first metatarsal head Wash: Soap and water. Pat the area dry. Tissue growth optimization: Anne Marie Offload: Plantar offloading pad to the first metatarsal head and continued use of diabetic shoes with protective inserts. Vascular: DP and PT pulses are palpable with adequate capillary fill time. I do not feel vascular is impeding healing progress. 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 I answered all the patient's questions. To return to the wound healing center in 1 week or call sooner if the patient has any questions or concerns. Note: [employer] speech recognition school office assistant software was used to create portions of this document. Sound-alike and misspelled words, as well as other school office assistant errors may be contained in the documentation.
[2023-01-06 10:40] VITALS: BP 96/75; PULSE 57; TEMP 35.1
== END 2023-01-11 23:59 | disposition home or self-care (01) ==
LOC: WC 10:00
PROVIDERS: PCP Family Medicine; Referring Provider Student in an Organized Health Care Education/Training Program; Visit Provider Student in an Organized Health Care Education/Training Program
DX: E11.621 Type 2 diabetes mellitus with foot ulcer (principal); L89.92 Pressure ulcer of unspecified site, stage 2; L97.526 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 involvement without evidence of necrosis; L97.522 Non-pressure chronic ulcer of other part of left foot with fat layer exposed; M20.42 Other hammer toe(s) (acquired), left foot; M20.5X9 Other deformities of toe(s) (acquired), unspecified foot
CPT/HCPCS: 11042; 73630

== ENCOUNTER 2023-02-11 09:25 | Outpatient (CLI) | payer MEDICARE, OTHER, SELFPAY ==
[2023-02-11 09:33] VITALS: BP 154/59; PULSE 45; RESP 16; TEMP 36.1; O2SAT 100; BMI 29.0
[2023-02-11] MEDS: DiphenhydrAMINE 50 MG/ML Syringe 12.5 MG IV (09:43)
== END 2023-02-11 23:59 | disposition home or self-care (01) ==
LOC: MEDOUTP 09:26
PROVIDERS: PCP Family Medicine; Referring Provider Family Medicine; Visit Provider Family Medicine
DX: L40.52 Psoriatic arthritis mutilans (principal); L40.3 Pustulosis palmaris et plantaris; L85.3 Xerosis cutis; M50.90 Cervical disc disorder, unspecified, unspecified cervical region; M17.0 Bilateral primary osteoarthritis of knee; L21.9 Seborrheic dermatitis, unspecified; L30.9 Dermatitis, unspecified; Z79.1 Long term (current) use of non-steroidal anti-inflammatories (NSAID); Z79.899 Other long term (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
CPT/HCPCS: 96375; 96413; 96415; J7050; A4216; Q5103

== ENCOUNTER → 2023-02-22 | Outpatient (CLI) | payer MEDICARE, OTHER, SELFPAY | END | disposition home or self-care (01) | PROVIDERS: PCP Family Medicine; Visit Provider Podiatrist | DX: L97.522 Non-pressure chronic ulcer of other part of left foot with fat layer exposed (principal) | CPT/HCPCS: 87070; 87077; 87186; 87205 ==

== ENCOUNTER 2023-02-25 11:59 | Inpatient (IN) | payer MEDICARE, OTHER, SELFPAY ==
[2023-02-25] VITALS (8 sets, daily range): BP systolic 119–175; BP diastolic 56–96; PULSE 66–94; RESP 14–18; TEMP 35.9–37.1; O2SAT 95–98; BMI 29.0; BMI 28.6
--- NOTE | 2023-02-25 12:35 | EDS_ITS ---
HPI History of Present Illness Chief Complaint: Cellulitis Informant: patient and spouse/S.O. Onset/Context/Timing Onset: Today Narrative Narrative: Patient has a history of diabetic foot ulcers that have been present on his left foot for 6 months or more. Mainly, the one on the bottom of the foot, close to the great toe, that he has been following with podiatry Dr. Freeman for, and suspecting that this is a pressure ulcer. Has been undergoing treatment for that period of time, has been seen multiple times in the last couple weeks, had a culture done 3 days ago, and today it started hurting a little more than it had been, and he developed redness that was not there yesterday. Discussed with Dr. Freeman over the phone, and they were directed to the ER because the culture was positive, all of this is per patient. Patient denies any fevers or chills today, or other systemic symptoms except for feeling a little malaised today compared to normal. [facility] Medical History Acute osteomyelitis involving ankle and foot Arthritis Body mass index 31.0-31.9, adult Cellulitis Chronic osteomyelitis involving ankle and foot Diabetes mellitus Ectopic atrial tachycardia Essential hypertension Hyperlipidemia Hypertension Long-term use of high-risk medication Methicillin susceptible Staphylococcus aureus infection Nonhealing nonsurgical wound with fat layer exposed RAJESH (obstructive sleep apnea) Paroxysmal ventricular tachycardia Premature atrial contractions Premature ventricular contraction Psoriasis Secondary pulmonary arterial hypertension Shortness of breath Supraventricular tachycardia Home Medications finasteride 5 mg tablet 5 mg PO DAILY 02/03/16 [History Last Taken Unknown] metformin 1,000 mg tablet 1,000 mg PO BIDCM 02/03/16 [History Last Taken Unknown] tamsulosin 0.4 mg capsule 0.4 mg PO QHS prostate 02/03/16 [History Last Taken Unknown] bimatoprost 0.01 % eye drops 1 drp EACH EYE DAILY 06/30/18 [History Last Taken Unknown] fluticasone propionate 50 mcg/actuation nasal spray,suspension 2 spray NASAL QUITA LY PRN Nasal Congestion 06/30/18 [History Last Taken Unknown] methotrexate sodium 2.5 mg tablet 7.5 mg PO Q7D 06/30/18 [History Last Taken Unknown] pyridoxine (vitamin B6) 50 mg tablet 100 mg PO QHS 06/30/18 [History Last Taken Unknown] multivitamin with folic acid 400 mcg tablet 1 tab PO DAILY 10/20/18 [History Last Taken Unknown] oxybutynin chloride 5 mg tablet,extended release 24 hr 5 mg PO QHS bladder 10/20/18 [History Last Taken Unknown] timolol maleate 0.25 % eye drops 1 drp EACH EYE BID 10/20/18 [History Last Taken 09/26/20 07:30] folic acid 1 mg tablet 4 mg PO DAILY 06/01/19 [History Last Taken Unknown] glucosamine HCl 1,500 mg tablet 1,500 mg PO BID 02/20/20 [History Last Taken Unknown] vit C 250 mg-vit E 90 mg-zinc 40 mg-copper 1 [id number] capsule 1 cap PO DAILY 02/20/20 [History Last Taken Unknown] glipizide 10 mg tablet 10 mg PO DAILY 05/30/20 [History Last Taken Unknown] infliximab-dyyb 100 mg intravenous solution (Inflectra) mg IV [id number] psoriatic arthritis 05/30/20 [History Last Taken 08/15/20] naproxen sodium 220 mg capsule 220 mg PO PRN PRN Pain 1-10 Or Fever 09/24/20 [History Last Taken Unknown] cyanocobalamin (vitamin B-12) 100 mcg tablet 500 mcg PO DAILY 12/01/20 [History Last Taken Unknown] cholecalciferol (vitamin D3) 25 mcg (1,000 unit) tablet 25 mcg PO BID 02/03/22 [History Last Taken Unknown] fexofenadine 180 mg tablet 180 mg PO DAILY PRN allergies 02/03/22 [History Last Taken Unknown] potassium chloride 20 mEq tablet,extended release(part/cryst) 20 meq PO DAILY #90 tabs 02/03/22 [Rx Last Taken Unknown] pravastatin 40 mg tablet 40 mg PO QHS cholesterol #90 tabs 02/03/22 [Rx Last Taken Unknown] doxycycline hyclate 100 mg tablet 100 mg PO BID 02/22/22 [History Last Taken Unknown] amlodipine 2.5 mg tablet 2.5 mg PO DAILY #90 tabs 02/24/23 [Rx Last Taken Unknown] hydrochlorothiazide 25 mg tablet 25 mg PO DAILY #90 tabs 02/24/23 [Rx Last Taken Unknown] lisinopril 40 mg tablet 40 mg PO DAILY #90 tabs 02/24/23 [Rx Last Taken Unknown] metoprolol succinate 100 mg tablet,extended release 24 hr 100 mg PO BID bp/heart #180 tabs 02/24/23 [Rx Last Taken Unknown] Allergy/AdvReac Type Severity Reaction Status Date / Time cephalexin [From Keflex] Allergy Severe rash Verified 02/25/23 12:02 sulfamethoxazole Allergy Severe Rash Verified 02/25/23 12:02 [From Bactrim] trimethoprim [From Bactrim] Allergy Severe Rash Verified 02/25/23 12:02 levofloxacin [From Levaquin] AdvReac Other Verified 02/25/23 12:02 Penicillins AdvReac Unknown Verified 02/25/23 12:02 Family History Father Cancer Prostate Mother Depression Surgical History excision of skin cancer History of foot surgery History of hammer toe correction (09/26/20) History of hernia repair History of partial amputation of toe History of tonsillectomy and adenoidectomy Social History Smoking Status: Former smoker pack-years: 30 alcohol intake: current alcohol intake frequency: holidays/special occasions only substance use type: does not use caffeine: Yes Type: coffee Number of servings: 3 what type of physical activity do you participate in: running and weight training frequency: 1-2 times per week ROS ROS ED Constitutional Constitutional ED: Reports malaise; Denies chills or fever(s) Cardiovascular Cardiovascular: Denies chest pain or palpitations Respiratory/Chest Respiratory/Chest: Denies cough or dyspnea Musculoskeletal Musculoskeletal: Reports extremity pain; Denies neck pain Integumentary Reports rash and wounds; Denies Abrasions Neurologic Neurologic: Reports paresthesias RLE and LLE; Denies weakness EXAM Physical Exam Const Vital Signs: 02/25/23 12:02 02/25/23 14:05 Temperature 96.6 F L 98.3 F Temperature Source Temporal Oral Pulse Rate 83 94 Respiratory Rate 14 16 Blood Pressure 119/96 H 141/56 H Blood Pressure Mean 103 84 Pulse Ox 95 Oxygen Delivery Method Room Air Positive well nourished and well developed General Appearance ED: well developed and NAD HEENT Reports moist mucous membranes normocephalic and atraumatic Eyes PERRL and EOMs intact bilaterally Neck full ROM and supple Resp normal respiratory effort and clear to auscultation bilaterally Cardio regular rate, regular rhythm and no murmurs Rate: Negative for tachycardic GI non-tender and non-distended Auscultation: normoactive bowel sounds Palpation: soft Back/Spine normal ROM and normal to inspection General Back: other FROM Extremity Extremity Narrative: Left foot: Erythematous great and second toes, there is a recently debrided superficial ulceration at the tip of the second toe, and at the plantar aspect of the first ray near the metacarpal head area/ball of the foot, there is a deep wound, there is a scant amount of discharge from both of these wounds on the dressings that were on them. There is swelling and erythema that progresses into the dorsal forefoot/metacarpal area, that is limited and then there is lymphangitis that goes up the medial aspect of the lower leg, none of this area is tender and however he has insensate feet due to peripheral neuropathy. There is no inguinal lymphadenopathy. Full range of motion all joints, all compartments are soft and nondistended. Neuro oriented x3 and no focal motor deficits Neuro Narrative: Decree sensation both feet symmetrically Sensorium / Orientation: alert Motor Exam: strength 5/5 throughout Psych mental status grossly normal and thought process normal Skin Skin Narrative: Wounds left first and second toes, with what appears to be cellulitis and lymphangitis see above MDM MDM MDM Narrative Medical decision making narrative: Patient clearly has clinical cellulitis that appears to be emanating from these wounds on his left foot, I did a work-up to see if he also has osteomyelitis. The x-rays do not show any obvious evidence of that, but he does have a leukocytosis and elevated CRP with a negative ESR, he is doing well clinically and hemodynamically, treated empirically with vancomycin, given the lymphangitis I believe admitting to the hospital is reasonable here. Lab Data Attestation: I reviewed the patient's lab results. Labs: Laboratory Results - last 24 hr 02/25/23 02/25/23 12:40 12:40 WBC 13.7 H RBC 4.45 L Hgb 14.1 Hct 42.9 MCV 96.4 H MCH 31.7 MCHC 32.9 RDW Std Deviation 49.5 H RDW Coeff of Jaimee 14.1 Plt Count 229 MPV 10.6 Immature Gran % (Auto) 0.700 Neut % (Auto) 76.7 H Lymph % (Auto) 11.3 L Perkins % (Auto) 8.9 Eos % (Auto) 2.2 Baso % (Auto) 0.2 Absolute Neuts (auto) 10.5 H Absolute Lymphs (auto) 1.54 Nucleated RBC % 0 ESR 6 Sodium 136 Potassium 4.0 Chloride 102 Carbon Dioxide 31.0 Anion Gap 3 L BUN 27 H Creatinine 1.31 H Estim Creat Clear Calc 50.19 Est GFR (MDRD) Af Amer 68 Est GFR (MDRD) Non-Af 56 L BUN/Creatinine Ratio 20.6 H Glucose 155 H Calcium 10.0 C-React Prot Ext Range 50.30 H Radiography Diagnostic Testing: Clinical Impression(s) from Imaging Studies Foot X-Ray 02/25/23 13:30 IMPRESSION: Stable degenerative changes throughout the left foot as described. Overall, no interval change since the previous study. No acute fracture or suspicious erosive osseous lesion Stable nonspecific soft tissue swelling but no subcutaneous emphysema noted Electronically Signed: Nnamdi Carlson MD at 13:57 EDT , Management Discussion w/another healthcare provider: Hospitalist Discharge Plan Triage Chief Complaint: Cellulitis ED Provider: Mervin White Dx/Rx/DC Orders Clinical Impression: Diabetic infection of left foot, Cellulitis of left foot Prescriptions: No Action Inflectra 100 mg recon soln IV [id number] Label Comments: IV Rx Instructions: 8 MG/KG glucosamine HCl 1,500 mg tablet 1,500 mg PO BID Rx Instructions: administer with a meal cyanocobalamin (vitamin B-12) 100 mcg tablet 500 mcg PO DAILY glipizide 10 mg tablet 10 mg PO DAILY cholecalciferol (vitamin D3) 25 mcg (1,000 unit) tablet 25 mcg PO BID pravastatin 40 mg tablet 40 mg PO QHS Qty: 90 3RF potassium chloride 20 mEq tablet,ER particles/crystals 20 meq PO DAILY Qty: 90 3RF tamsulosin 0.4 MG capsule 0.4 mg PO QHS metformin 1,000 MG tablet 1,000 mg PO BIDCM finasteride 5 MG tablet 5 mg PO DAILY vit C,L-Oc-lepyd-lutein-zeaxan [id number] um-bhje-yd-mg capsule 1 cap PO DAILY methotrexate sodium 2.5 MG tablet 7.5 mg PO Q7D pyridoxine (vitamin B6) 50 MG tablet 100 mg PO QHS fluticasone propionate 1 SPRAY spray,suspension 2 spray NASAL DAILY PRN (Reason: Nasal Congestion) bimatoprost 1 DROP drops 1 drp EACH EYE DAILY folic acid 1 mg tablet 4 mg PO DAILY fexofenadine 180 mg tablet 180 mg PO DAILY PRN (Reason: allergies) oxybutynin chloride 5 MG tablet 5 mg PO QHS timolol maleate 1 DROP drops 1 drp EACH EYE BID multivitamin with folic acid 1 TABLET tablet 1 tab PO DAILY naproxen sodium 220 MG capsule 220 mg PO PRN PRN (Reason: Pain 1-10 Or Fever) doxycycline hyclate 100 mg tablet 100 mg PO BID Label Comments: TAKE 1 TABLET BY MOUTH TWICE A DAY metoprolol succinate 100 mg tablet extended release 24 hr 100 mg PO BID Qty: 180 3RF hydrochlorothiazide 25 mg tablet 25 mg PO DAILY Qty: 90 3RF amlodipine 2.5 mg tablet 2.5 mg PO DAILY Qty: 90 3RF lisinopril 40 mg tablet 40 mg PO DAILY Qty: 90 3RF Primary Care Provider: Jose Turner Referrals: Jose Turner MD [Primary Care Provider] - Disposition Disposition: Acute Care [facility]
[2023-02-25 12:57] LABS: Erythrocyte Sedimentation Rate 6 mm/hr (0-20)
[2023-02-25 12:59] LABS: Absolute Lymphocyte Count 1.54 X10^3/uL (0.83-4.51); Absolute Neutrophil Count 10.5 X10^3/uL (2.0-7.7); Basophil# 0.03 X10^3/uL; Basophil% 0.2 % (0-1); Eosinophils% 2.2 % (0-5); Hematocrit 42.9 % (40-54); Hemoglobin 14.1 g/dL (13.0-16.5); Lymphocyte # 1.54 X10^3/ul (0.83-4.51); Lymphocyte % 11.3 % (19-41); Mean Corp Hgb Conc 32.9 g/dL (32-36); Mean Corpuscular Hgb 31.7 pg (27.0-32.0); Mean Corpuscular Volume 96.4 fL (80-94); Mean Platelet Vol. 10.6 fl (6.2-12.0); Monocyte# 1.21 X10^3/uL; Monocyte% 8.9 % (0-10); NRBC Flagged by Analyzer 0 % (0-5); Neutrophil # 10.49 X10^3/uL (2.7-7.7); Neutrophil % 76.7 % (47-70); Platelet Count 229 K/mm3 (150-450); RBC Distribution Width CV 14.1 % (11.6-14.6); RBC Distribution Width SD 49.5 fl (35.1-43.9); Red Blood Count 4.45 M/mm3 (4.6-6.2); White Blood Count 13.7 K/mm3 (4.4-11.0)
[2023-02-25 13:07] LABS: Anion Gap 3 (5-15); BUN 27 mg/dL (7-18); BUN/Creat Ratio 20.6 RATIO (10-20); Chloride 102 mmol/L (98-107); Creatinine, Serum 1.31 mg/dL (0.70-1.30); EST Glomerular Filtration Rate 56 mL/min (>60); Est Glom Filt Rate - Afr Amer 68 mL/min (>60); Estimated Creatinine Clearance 50.19 ml/min; Glucose 155 mg/dL (74-106); Sodium Level 136 mmol/L (136-145)
--- NOTE | 2023-02-25 13:30 | RAD_ITS ---
STUDY: X-RAY - LEFT FOOT CLINICAL: Male, 77 years old. Pain and swelling TECHNIQUE: 3 view(s) of the foot. COMPARISON: 12/23/2022. FINDINGS: Lateral view shows calcaneal spurs. Subtalar joints are well preserved. Stable age consistent intratarsal joint space narrowing. Stable first second and third MTP joint arthrosis with stable subchondral changes in the distal first metatarsal. Stable subchondral erosions involving the distal aspect of the proximal first phalanx. Stable significant PIP and DIP joint arthrosis in the second fourth and fifth toes with previous amputation of the phalanges of the third toe. There is nonspecific essentially stable soft tissue swelling no subcutaneous emphysema is noted. Overall, no significant interval change since the previous study RAD/Foot min 3 Views IMPRESSION: Stable degenerative changes throughout the left foot as described. Overall, no interval change since the previous study. No acute fracture or suspicious erosive osseous lesion Stable nonspecific soft tissue swelling but no subcutaneous emphysema noted Electronically Signed: Nnamdi Carlson MD at 13:57 EDT ,
[2023-02-25] MEDS: metFORMIN HCl 1,000 MG Tablet 1000 MG PO (17:40)
--- NOTE | 2023-02-25 18:34 | CON.PCM_ITS ---
Assessment & Plan Assessment/Plan (1) Diabetic foot ulcer associated with type 2 diabetes mellitus: QUALIFIERS: Diabetic foot ulcer location: toe Laterality: left Non-pressure ulcer stage: with bone involvement without evidence of necrosis Qualified Code(s): E11.621 - Type 2 diabetes mellitus with foot ulcer; L97.526 - 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 involvement without evidence of necrosis (2) Pressure ulcer of toe of right foot, stage 2: (3) Deformity of toe of left foot: (4) Cellulitis of left foot: (5) Diabetes mellitus with diabetic polyneuropathy: (6) Acquired hammer toe of left foot: (7) 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 of skin: PLAN: Plan Patient seen and evaluated Despite no significant erythema there is increased warmth to the dorsum of the left foot versus contralateral limb. Patient does have significant neuropathy to bilateral foot. 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 Ulceration has mixed fibrogranular tissue measuring 1.5 cm x 1.3 cm x 1 cm with tunneling at the the 6 o'clock position of 2 cm, 9 o'clock position 1.4 cm and 11 o'clock position 1.3 cm. No erythema, no purulent drainage, no malodor, no palpable fluctuance/bogginess noted, no visible abscess formation, no lymphangitic streaking. Ulceration does extend towards the capsule of the first metatarsal phalangeal joint but does not penetrate the joint capsule. No purulence was expressible. Second digit distal tuft abrasion left foot secondary to hammertoe formation He did have cultures 3 days prior demonstrating E faecalis. WBC 13.7, ESR 6, CRP 50.30. Patient currently on IV meropenem. Following verbal for permission I did perform a bedside sharp debridement of the ulcerative site utilizing a #3 curette. 100% of the ulceration was debrided without use of local anesthetic secondary to peripheral polyneuropathy. Ulceration is a Garcia stage II. Debridement consisted of fibrous, devitalized subcutaneous, biofilm, slough. Hemostasis achieved with pressure and gauze. Patient tolerated the procedure well. Following debridement site was copiously irrigated including tunneling pockets with 200 mL normal sterile saline utilizing a 30 cc syringe and an 18-gauge needle. Adequate soft tissue bleeding was noted following procedure. Site was dressed with Betadine, gauze, ABD, Kerlix, and Grant. Dressings to be changed daily. Nursing to assist in changes. Continue to elevate left lower extremity at all times of rest. He is to remain nonweightbearing to the left lower extremity with assistance of a walker. Medicine team following for medical management, they are greatly appreciated. Infectious disease has been consulted for antibiotic management. Patient was seen with Dr. Hendricks present for debridement. Following this Dr. Hendricks and myself did discuss on phone with Dr. Xiomara Freeman D.P.M. in regards to surgical management of this patient as patient has requested he wants to continue to follow with Dr. Freeman. While on phone with her she is willing to proceed with surgical intervention for a Cosme procedure/osteotomy of the left hallux base to effectively offload this ulceration allowing healing. She discussed that she will do as an outpatient. He will continue with IV antibiotics while in house for treatment of cellulitis. I discussed with her that I will evaluate again over the weekend prior to his discharge. She is in agreement with plan. Podiatry will continue to follow while in house. At this time no surgical intervention planned as patient would like to follow-up with Dr. Freeman. Chevy Bautista Jr. [facility] [phone] HPI Consult Data Date of Consult: 02/25/23 HPI Narrative Reason for Consultation: Left Sub hallux ulceration HPI Narrative: YESSI GRACE, is a 77 M who presents presents to the [facility] ED with a nonhealing ulceration to the plantar aspect of the hallux of the left foot. Patient was previously seen in the wound care center by Martha Alva NP and was consulted to me for nonhealing ulceration in December 2022. At that time I discussed with him the need to perform a Cosme osteotomy to effectively offload the prominent portion of bone creating the neuropathic ulceration to the plantar hallux of the left foot. Patient stated he would talk it over with his however never returned to the wound care center or follow back with me. He did seek treatment with Dr. Xiomara Freeman D.P.M. and undergoing conservative treatment with local wound care. She did perform a culture 3 days ago with positive results and was started on oral doxycycline. He states that the ulceration was hurting more today with some redness that did develop in which he did call Dr. Freeman and discussed briefly over the phone and was directed to the ED. He denies N/V/F/chills today. States that the ulcer does have bloody drainage. He was admitted to [facility] and he was consulted to podiatry for evaluation of his nonhealing plantar hallux wound. [facility] Medical History (Updated 02/25/23 @ 18:[address] Chevy Bautista, DPElvia) Acute osteomyelitis involving ankle and foot Arthritis Asthma Atrial fibrillation Body mass index 31.0-31.9, adult Cellulitis Chronic osteomyelitis involving ankle and foot CPAP (continuous positive airway pressure) dependence Diabetes mellitus Ectopic atrial tachycardia Essential hypertension Hyperlipidemia Hypertension Long-term use of high-risk medication Methicillin susceptible Staphylococcus aureus infection Nonhealing nonsurgical wound with fat layer exposed RAJESH (obstructive sleep apnea) Paroxysmal ventricular tachycardia Premature atrial contractions Premature ventricular contraction Psoriasis Secondary pulmonary arterial hypertension Shortness of breath Sleep apnea Supraventricular tachycardia Home Medications finasteride 5 mg tablet 5 mg PO DAILY prostate 02/03/16 [History Last Taken Unknown] metformin 1,000 mg tablet 1,000 mg PO BIDCM dm 02/03/16 [History Last Taken 02/25/23] tamsulosin 0.4 mg capsule 0.4 mg PO QHS prostate 02/03/16 [History Last Taken 02/24/23] bimatoprost 0.01 % eye drops 1 drp EACH EYE DAILY glaucoma 06/30/18 [History Last Taken 02/25/23] fluticasone propionate 50 mcg/actuation nasal spray,suspension 2 spray NASAL DAILY PRN Nasal Congestion 06/30/18 [History Last Taken Unknown] methotrexate sodium 2.5 mg tablet 7.5 mg PO Q7D arthritis 06/30/18 [History Last Taken 02/23/23] pyridoxine (vitamin B6) 50 mg tablet 100 mg PO QHS supplement 06/30/18 [History Last Taken 02/24/23] multivitamin with folic acid 400 mcg tablet 1 tab PO DAILY supplement 10/20/18 [History Last Taken 02/25/23] oxybutynin chloride 5 mg tablet,extended release 24 hr 5 mg PO QHS bladder 10/20/18 [History Last Taken 02/24/23] timolol maleate 0.25 % eye drops 1 drp EACH EYE BID glaucoma 10/20/18 [History Last Taken 02/25/23] folic acid 1 mg tablet 4 mg PO DAILY supplement 06/01/19 [History Last Taken Unknown] glucosamine HCl 1,500 mg tablet 1,500 mg PO BID supplemt 02/20/20 [History Last Taken 02/25/23] glipizide 10 mg tablet 10 mg PO DAILY PRN dm 05/30/20 [History Last Taken 02/25/23] infliximab-dyyb 100 mg intravenous solution (Inflectra) mg IV UD psoriatic arthritis 05/30/20 [History Last Taken 02/18/23] naproxen sodium 220 mg capsule 220 mg PO PRN PRN Pain 1-10 Or Fever 09/24/20 [History Last Taken 02/25/23] cyanocobalamin (vitamin B-12) 100 mcg tablet 500 mcg PO DAILY supplement 12/01/20 [History Last Taken 02/25/23] cholecalciferol (vitamin D3) 25 mcg (1,000 unit) tablet 25 mcg PO DAILY supplement 02/03/22 [History Last Taken 02/24/23] fexofenadine 180 mg tablet 180 mg PO DAILY PRN allergies 02/03/22 [History Last Taken Unknown] potassium chloride 20 mEq tablet,extended release(part/cryst) 20 meq PO DAILY #90 tabs 02/03/22 [Rx Last Taken 02/25/23] pravastatin 40 mg tablet 40 mg PO QHS cholesterol #90 tabs 02/03/22 [Rx Last Taken 02/24/23] amlodipine 2.5 mg tablet 2.5 mg PO DAILY #90 tabs 02/24/23 [Rx Last Taken 02/25/23] hydrochlorothiazide 25 mg tablet 25 mg PO DAILY #90 tabs 02/24/23 [Rx Last Taken 02/25/23] lisinopril 40 mg tablet 40 mg PO DAILY #90 tabs 02/24/23 [Rx Last Taken 02/25/23] metoprolol succinate 100 mg tablet,extended release 24 hr 100 mg PO BID bp/heart #180 tabs 02/24/23 [Rx Last Taken 02/25/23] Allergy/AdvReac Type Severity Reaction Status Date / Time cephalexin [From Keflex] Allergy Severe rash Verified 02/25/23 12:02 sulfamethoxazole Allergy Severe Rash Verified 02/25/23 12:02 [From Bactrim] trimethoprim [From Bactrim] Allergy Severe Rash Verified 02/25/23 12:02 Penicillins Allergy Rash Verified 02/25/23 17:04 levofloxacin [From Levaquin] AdvReac Other Verified 02/25/23 12:02 Family History Father Cancer Prostate Mother Depression Surgical History excision of skin cancer History of foot surgery History of hammer toe correction (09/26/20) History of hernia repair History of partial amputation of toe History of tonsillectomy and adenoidectomy Social History Smoking Status: Former smoker pack-years: 30 alcohol intake: current alcohol intake frequency: holidays/special occasions only substance use type: does not use caffeine: Yes Type: coffee Number of servings: 3 what type of physical activity do you participate in: running and weight training frequency: 1-2 times per week ROS Constitutional Constitutional: Reports malaise; Denies body ache(s), chills or fever(s) Eyes Eyes: Denies change in vision, diplopia or erythema ENT HEENT: Denies dysphagia, mouth pain, nasal congestion, nasal discharge or sore throat Cardiovascular Cardiovascular: Denies chest pain, claudication, cold extremities or leg edema Respiratory/Chest Respiratory/Chest: Denies cough, dyspnea or shortness of breath at rest Gastrointestinal Gastrointestinal: Denies abdominal pain, constipation, diarrhea, nausea or vomiting Genitourinary Genitourinary: Reports urinary frequency and urinary hesitancy; Denies dysuria or hematuria Musculoskeletal Musculoskeletal: Denies joint pain, joint stiffness or joint swelling Integumentary Integumentary: Denies lesions, pruritus or rash Neurologic Neurologic: Denies dizziness, numbness or seizures Psychiatric Psychiatric: Denies anxiety or depression Endocrine Endocrinology: Denies polydipsia, polyphagia or polyuria Hematologic/Lymphatic Hematologic/Lymphatic: Denies easy bleeding or easy bruising Physical Exam Const alert, oriented x3 and no apparent distress Constitutional Narrative: Nontoxic-appearing HEENT normocephalic Eyes General Eye: normal appearance of both eyes Neck General: normal visual inspection Lymph Lymphatic: no lymphadenopathy noted and no lymphedema noted Resp normal respiratory effort Cardio regular rate and regular rhythm Extremity normal capillary refill, no calf tenderness and no pedal edema Extremity Narrative: DP and PT pulses are palpable bilateral with adequate capillary fill time to the digits Left foot: There is increased warmth of the left foot dorsally compared to contralateral limb however no overt erythema noted. 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 Ulceration has mixed fibrogranular tissue with tunneling at the the 6 o'clock position of 2 cm, 9 o'clock position 1.4 cm and 11 o'clock position 1.3 cm. No erythema, no purulent drainage, no malodor, no palpable fluctuance/bogginess noted, no visible abscess formation, no lymphangitic streaking. Second digit distal tuft abrasion left foot secondary to hammertoe formation Skin no rashes or lesions noted, skin turgor normal and no jaundice Wound Narrative: Neuropathic pressure ulceration secondary to base of the proximal phalanx of the left hallux. Ulceration has mixed fibrogranular tissue with tunneling at the the 6 o'clock position of 2 cm, 9 o'clock position 1.4 cm and 11 o'clock po sition 1.3 cm. No erythema, no purulent drainage, no malodor, no palpable fluctuance/bogginess noted, no visible abscess formation, no lymphangitic streaking. Second digit distal tuft abrasion left foot secondary to hammertoe formation Neuro moves all extremities Lab / Micro Data Result Diagrams: 02/25/23 12:40 02/25/23 12:40 Labs: Laboratory Results - last 24 hr 02/25/23 12:40: WBC 13.7 H, RBC 4.45 L, Hgb 14.1, Hct 42.9, MCV 96.4 H, MCH 31.7, MCHC 32.9, RDW Std Deviation 49.5 H, RDW Coeff of Jaimee 14.1, Plt Count 229, MPV 10.6, Immature Gran % (Auto) 0.700, Neut % (Auto) 76.7 H, Lymph % (Auto) 11.3 L, [place] % (Auto) 8.9, Eos % (Auto) 2.2, Baso % (Auto) 0.2, Absolute Neuts (auto) 10.5 H, Absolute Lymphs (auto) 1.54, Nucleated RBC % 0, ESR 6 02/25/23 12:40: Sodium 136, Potassium 4.0, Chloride 102, Carbon Dioxide 31.0, Anion Gap 3 L, BUN 27 H, Creatinine 1.31 H, Estim Creat Clear Calc 50.19, Est GFR (MDRD) Af Amer 68, Est GFR (MDRD) Non-Af 56 L, BUN/Creatinine Ratio 20.6 H, Glucose 155 H, Calcium 10.0, C-React Prot Ext Range 50.30 H Radiology Impression Foot X-Ray 02/25/23 13:30 IMPRESSION: Stable degenerative changes throughout the left foot as described. Overall, no interval change since the previous study. No acute fracture or suspicious erosive osseous lesion Stable nonspecific soft tissue swelling but no subcutaneous emphysema noted Electronically Signed: Nnamdi Carlson MD at 13:57 EDT ,
--- NOTE | 2023-02-25 20:37 | PCM.PN.HOSP ---
Reason for Visit Reason for Visit: Diagnoses Type 2 diabetes mellitus with diabetic polyneuropathy (02/25/23) Type 2 diabetes mellitus with foot ulcer (02/25/23) Cellulitis of left lower limb (02/25/23) Pressure ulcer of other site, stage 2 (02/25/23) 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 of skin (02/25/23) 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 involvement without evidence of necrosis (02/25/23) Other hammer toe(s) (acquired), left foot (02/25/23) Acquired deformities of toe(s), unspecified, left foot (02/25/23) Subjective Subjective Patient was seen and examined today, he came to the ER with complaints of increased redness and pain in his left foot. Patient has a chronic ulceration over the plantar surface of the great toe area, he has been seen in the wound center here by Dr. Bautista (podiatry) in December. Work-up in the emergency room showed the patient have an elevated white blood cell count of 13.7, creatinine was 1.31, BUN was 27, glucose was 155. C-reactive protein was elevated at 50.3. X-ray of the left foot was obtained that showed degenerative changes throughout the left foot, no acute fracture or suspicious erosive bone lesion was noted, there is nonspecific soft tissue swelling but no subcutaneous emphysema noted. Patient had a recent outpatient culture done of his wound on his left foot, the culture grew out Enterococcus, it is susceptible to ampicillin, Zyvox, streptomycin, vancomycin, and gentamicin. Patient is unfortunately allergic to penicillin which causes a severe rash. Patient will be admitted to [facility], he was placed on IV meropenem for cellulitis of the left foot, he will be seen in consultation by Dr. Bautista podiatry, he usually follows up as an outpatient with Dr. Freeman. Patient's home medications will be continued, blood sugars will be monitored. Objective Data Objective Data Vital Signs: Vital Signs Temp Pulse Resp BP Pulse Ox O2 Del Method 97.9 F 67 16 175/80 H 98 Room Air 02/25/23 17:03 02/25/23 18:19 02/25/23 17:03 02/25/23 17:03 02/25/23 17:03 02/25/23 17:44 Oxygen Delivery Method Room Air Weight: 95.708 kg Body Mass Index (BMI) 28.6 Intake & Output: Intake and Output for Last 24 Hours 02/23/23 02/24/23 02/25/23 23:59 23:59 23:59 Intake Total 650 / 650 Balance 650 / 650 Lab / Micro Data Result Diagrams: 02/25/23 12:40 02/25/23 12:40 Labs: Laboratory Results - last 24 hr 02/25/23 12:40: WBC 13.7 H, RBC 4.45 L, Hgb 14.1, Hct 42.9, MCV 96.4 H, MCH 31.7, MCHC 32.9, RDW Std Deviation 49.5 H, RDW Coeff of Jaimee 14.1, Plt Count 229, MPV 10.6, Immature Gran % (Auto) 0.700, Neut % (Auto) 76.7 H, Lymph % (Auto) 11.3 L, [place]ahan % (Auto) 8.9, Eos % (Auto) 2.2, Baso % (Auto) 0.2, Absolute Neuts (auto) 10.5 H, Absolute Lymphs (auto) 1.54, Nucleated RBC % 0, ESR 6 02/25/23 12:40: Sodium 136, Potassium 4.0, Chloride 102, Carbon Dioxide 31.0, Anion Gap 3 L, BUN 27 H, Creatinine 1.31 H, Estim Creat Clear Calc 50.19, Est GFR (MDRD) Af Amer 68, Est GFR (MDRD) Non-Af 56 L, BUN/Creatinine Ratio 20.6 H, Glucose 155 H, Calcium 10.0, C-React Prot Ext Range 50.30 H Radiography Diagnostic Testing: Radiology Impression Foot X-Ray 02/25/23 13:30 IMPRESSION: Stable degenerative changes throughout the left foot as described. Overall, no interval change since the previous study. No acute fracture or suspicious erosive osseous lesion Stable nonspecific soft tissue swelling but no subcutaneous emphysema noted Electronically Signed: Nnamdi Carlson MD at 13:57 EDT ,
[2023-02-25] MEDS: 0.9% Saline Lock 10 ML Syringe IV (22:59)
[2023-02-25] MEDS: Latanoprost 0.005% 1 Bottle 1 DRP EACH EYE (23:02)
[2023-02-25] MEDS: Timolol 0.25% 5ML OPTH.BTL 1 DRP EACH EYE (23:04)
[2023-02-25] MEDS: Pyridoxine HCl 100 MG Tablet PO (23:05)
[2023-02-25] MEDS: Oxybutynin 5 MG Tablet PO (23:06)
[2023-02-25] MEDS: Metoprolol(XL)Succ 100 MG Tablet PO (23:06)
[2023-02-25] MEDS: Tamsulosin HCl 0.4 MG Capsule PO (23:06)
[2023-02-25] MEDS: Heparin Injection (Vial) 5,000 UNIT/ML VIAL 5000 UNIT SC (23:06)
[2023-02-25] MEDS: Pravastatin 40 MG Tablet PO (23:06)
[2023-02-25 23:40] LABS: Bedside Glucose 171 mg/dL (74-106)
[2023-02-26] VITALS (7 sets, daily range): BP systolic 129–159; BP diastolic 72–80; PULSE 66–80; RESP 14–18; TEMP 36.7–37; O2SAT 95–100
[2023-02-26] MEDS: 0.9% Saline Lock 10 ML Syringe IV ×3 (06:42→20:37)
[2023-02-26 07:21] LABS: Absolute Lymphocyte Count 1.78 X10^3/uL (0.83-4.51); Absolute Neutrophil Count 6.2 X10^3/uL (2.0-7.7); Basophil# 0.03 X10^3/uL; Basophil% 0.3 % (0-1); Eosinophil# 0.28 X10^3/uL; Eosinophils% 3.1 % (0-5); Hematocrit 43.8 % (40-54); Hemoglobin 14.4 g/dL (13.0-16.5); Lymphocyte # 1.78 X10^3/ul (0.83-4.51); Lymphocyte % 19.7 % (19-41); Mean Corp Hgb Conc 32.9 g/dL (32-36); Mean Corpuscular Hgb 32.1 pg (27.0-32.0); Mean Corpuscular Volume 97.6 fL (80-94); Mean Platelet Vol. 10.6 fl (6.2-12.0); Monocyte# 0.65 X10^3/uL; Monocyte% 7.2 % (0-10); NRBC Flagged by Analyzer 0 % (0-5); Neutrophil # 6.24 X10^3/uL (2.7-7.7); Neutrophil % 69.1 % (47-70); Platelet Count 222 K/mm3 (150-450); RBC Distribution Width CV 14.2 % (11.6-14.6); RBC Distribution Width SD 50.3 fl (35.1-43.9); Red Blood Count 4.49 M/mm3 (4.6-6.2)
[2023-02-26 07:56] LABS: Anion Gap 2 (5-15); BUN 23 mg/dL (7-18); Calcium,Total 9.8 mg/dL (8.5-10.1); Chloride 103 mmol/L (98-107); Creatinine, Serum 1.28 mg/dL (0.70-1.30); EST Glomerular Filtration Rate 58 mL/min (>60); Est Glom Filt Rate - Afr Amer 70 mL/min (>60); Estimated Creatinine Clearance 51.36 ml/min; Glucose 156 mg/dL (74-106); Potassium 4.2 mmol/L (3.5-5.1); Sodium Level 135 mmol/L (136-145)
[2023-02-26] MEDS: metFORMIN HCl 1,000 MG Tablet 1000 MG PO ×2 (08:42→15:29)
[2023-02-26] MEDS: Potassium Chloride Oral Tablet 20 MEQ PO (08:42)
[2023-02-26] MEDS: glipiZIDE 10 MG Tablet PO (08:43)
[2023-02-26] MEDS: hydroCHLOROthiazide 25 MG Tablet PO (08:43)
[2023-02-26] MEDS: amLODIPine 2.5 MG Tablet PO (08:44)
[2023-02-26] MEDS: Heparin Injection (Vial) 5,000 UNIT/ML VIAL 5000 UNIT SC ×2 (08:44→20:38)
[2023-02-26] MEDS: Finasteride 5 MG Tablet PO (08:45)
[2023-02-26] MEDS: Lisinopril 40 MG Tablet PO (08:45)
[2023-02-26] MEDS: Metoprolol(XL)Succ 100 MG Tablet PO ×2 (08:45→20:37)
[2023-02-26] MEDS: Timolol 0.25% 5ML OPTH.BTL 1 DRP EACH EYE ×2 (08:45→20:46)
--- NOTE | 2023-02-26 12:30 | CASEMGMT ---
RN CM Face to Face with patient for initial transition planning/care coordination assessment. RN CM introduced self and role at [facility]. Patient lying in bed, alert and oriented. Patient willing to participate in assessment and is able to answer all questions appropriately. Care providers, pharmacy, and demographics verified. Patient wishes to discharge home, denies need for home health at this time. Patient states he has no further needs or concerns at this time. CM to follow for discharge planning needs that may arise. PCP: Jose Turner Specialists: Martine trim technician; [facility] Preferred [facility]acy: [facility] Insurance: [facility] [place] [facility] [place] Prescription Benefit: yes Living Will/HPOA: living will only LNOK: Living Arrangements: Patient lives with in a single story home with 3 steps and railing x2 to enter. Patient states he is independent at home. Transportation: self, DME/HHC: Patient had cane, walker, knee scooter, and grab bars at home. No previous HHC or SNF Disposition Plan: Patient to discharge home with family support and follow-up plans in place. Sherita GILLILAND, RN, CM
[2023-02-26] MEDS: Juven (unflavored) Packet 1 PACKET PO (15:29)
--- NOTE | 2023-02-26 16:33 | PN_ITS ---
Subjective Subjective Patient seen this afternoon resting in chair with feet elevated. is present to discuss his ulcer and culture results. She previously discussed culture results and antibiotic management with hospitalist. States he feels the foot is a little better today. Patient denies constitutional symptoms today. Denies further complaints. Objective Data Objective Data Vital Signs: Vital Signs Temp Pulse Resp BP Pulse Ox O2 Del Method 98.1 F 70 18 129/72 H 97 Room Air 02/26/23 14:28 02/26/23 14:28 02/26/23 14:28 02/26/23 14:28 02/26/23 14:28 02/26/23 14:28 Oxygen Delivery Method Room Air Weight: 95.708 kg Body Mass Index (BMI) 28.6 Intake & Output: Intake and Output for Last 24 Hours 02/24/23 02/25/23 02/26/23 23:59 23:59 23:59 Intake Total 860 / 860 1070 / 1070 Balance 860 / 860 1070 / 1070 Lab / Micro Data Result Diagrams: 02/26/23 07:06 02/26/23 07:06 Labs: Laboratory Results - last 24 hr 02/25/23 23:17: POC Glucose 171 H 02/26/23 07:06: WBC 9.0, RBC 4.49 L, Hgb 14.4, Hct 43.8, MCV 97.6 H, MCH 32.1 H, MCHC 32.9, RDW Std Deviation 50.3 H, RDW Coeff of Jaimee 14.2, Plt Count 222, MPV 10.6, Immature Gran % (Auto) 0.600, Neut % (Auto) 69.1, Lymph % (Auto) 19.7, Mon o % (Auto) 7.2, Eos % (Auto) 3.1, Baso % (Auto) 0.3, Absolute Neuts (auto) 6.2, Absolute Lymphs (auto) 1.78, Nucleated RBC % 0 02/26/23 07:06: Sodium 135 L, Potassium 4.2, Chloride 103, Carbon Dioxide 30.0, Anion Gap 2 L, BUN 23 H, Creatinine 1.28, Estim Creat Clear Calc 51.36, Est GFR (MDRD) Af Amer 70, Est GFR (MDRD) Non-Af 58 L, BUN/Creatinine Ratio 18.0, Glucose 156 H, Calcium 9.8 Physical Exam Const alert, oriented x3 and no apparent distress Constitutional Narrative: Nontoxic-appearing HEENT normocephalic Eyes General Eye: normal appearance of both eyes Neck General: normal visual inspection Lymph Lymphatic: no lymphadenopathy noted and no lymphedema noted Resp normal respiratory effort Cardio regular rate and regular rhythm Extremity normal capillary refill, no calf tenderness and no pedal edema Extremity Narrative: DP and PT pulses are palpable bilateral with adequate capillary fill time to the digits Left foot: There is increased warmth of the left foot dorsally compared to contralateral limb however no overt erythema noted, this is improving. 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 Ulceration has mixed fibrogranular tissue with tunneling at the the 6 o'clock position of 2 cm, 9 o'clock position 1.4 cm and 11 o'clock position 1.3 cm. No erythema, no purulent drainage, no malodor, no palpable fluctuance/bogginess noted, no visible abscess formation, no lymphangitic streaking. Second digit distal tuft abrasion left foot secondary to hammertoe formation Skin no rashes or lesions noted, skin turgor normal and no jaundice Wound Narrative: Neuropathic pressure ulceration secondary to base of the proximal phalanx of the left hallux. Ulceration has mixed fibrogranular tissue with tunneling at the the 6 o'clock position of 2 cm, 9 o'clock position 1.4 cm and 11 o'clock position 1.3 cm. No erythema, no purulent drainage, no malodor, no palpable fluctuance/bogginess noted, no visible abscess formation, no lymphangitic streaking. Second digit distal tuft abrasion left foot secondary to hammertoe formation Neuro moves all extremities Assessment & Plan Assessment/Plan (1) Diabetic foot ulcer associated with type 2 diabetes mellitus: QUALIFIERS: Diabetic foot ulcer location: toe Laterality: left Non-pressure ulcer stage: with bone involvement without evidence of necrosis Qualified Code(s): E11.621 - Type 2 diabetes mellitus with foot ulcer; L97.526 - 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 involvement without evidence of necrosis (2) Pressure ulcer of toe of right foot, stage 2: (3) Deformity of toe of left foot: (4) Cellulitis of left foot: (5) Diabetes mellitus with diabetic polyneuropathy: (6) Acquired hammer toe of left foot: (7) 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 of skin: PLAN: Plan Patient seen and evaluated Despite no significant erythema there is increased warmth to the dorsum of the left foot versus contralateral limb. Patient does have significant neuropathy to bilateral foot. Neuropathic pressure ulceration secondary to hallux extensus and base of the proximal phalanx of the left hallux creating plantar prominence. Ulceration has mixed fibrogranular tissue measuring 1.5 cm x 1.3 cm x 1 cm with tunneling at the the 6 o'clock position of 2 cm, 9 o'clock position 1.4 cm and 11 o'clock position 1.3 cm. No erythema, no purulent drainage, no malodor, no palpable fluctuance/bogginess noted, no visible abscess formation, no lymphangitic streaking. Ulceration does extend towards the capsule of the first metatarsal phalangeal joint but does not penetrate the joint capsule. Scant purulence expressible today from the 9 o'clock position, this was extensively irrigated and no further purulence was expressible. Second digit distal tuft abrasion left foot secondary to hammertoe formation He did have cultures 3 days prior demonstrating E faecalis. WBC 13.7 trending down currently 9.0, ESR 6, CRP 50.30. Patient currently on IV meropenem. On 02/25/2023 he underwent sharp debridement of the ulcerative site and copiously irrigated including tunneling pockets with 200 mL normal sterile saline utilizing a 30 cc syringe and an 18-gauge needle. Adequate soft tissue bleeding was noted following procedure. Site was again copiously irrigated with 250 mL normal sterile saline on 02/26/2023. Site was dressed with Betadine, gauze, ABD, Kerlix, and Grant. Dressings to be changed daily. Nursing to assist in changes. Continue to elevate left lower extremity at all times of rest. He is to remain nonweightbearing to the left lower extremity with assistance of a walker. Medicine team following for medical management, they are greatly appreciated. Infectious disease has been consulted for antibiotic management. Patient was seen with Dr. Hendricks present for debridement on 02/25/2023. Following this Dr. Hendricks and myself did discuss on phone with Dr. Xiomara Freeman, Jacob[facility].P.M. in regards to surgical management of this patient as patient has requested he wants to continue to follow with Dr. Freeman. While on phone with her she is willing to proceed with surgical intervention for a Cosme procedure/osteotomy of the left hallux base to effectively offload this ulceration allowing healing. She discussed that she will do as an outpatient. He will continue with IV antibiotics while in house for treatment of cellulitis. I discussed with her that I will evaluate again over the weekend prior to his discharge. She is in agreement with plan. Today I discussed the necessary procedure to be performed of the Cosme o steotomy of the left hallux with the patient again and his . states she has understanding of what needs to be done following our discussion and per both her wishes will follow with Dr. Freeman. Podiatry will continue to follow while in house. At this time no surgical intervention planned as patient would like to follow-up with Dr. Freeman. Patient is currently stable and following discussion with hospitalist plan is to discharge home on Zyvox and per patient wishes he will follow with Dr. Freeman to receive Cosme osteotomy of the left hallux. Jr. Loan SorensenP.M. [facility] [phone]
--- NOTE | 2023-02-26 17:39 | PN.HOSP_ITS ---
Reason for Visit Reason for Visit: Diagnoses Type 2 diabetes mellitus with diabetic polyneuropathy (02/25/23) Type 2 diabetes mellitus with foot ulcer (02/25/23) Cellulitis of left lower limb (02/25/23) Pressure ulcer of other site, stage 2 (02/25/23) 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 of skin (02/25/23) 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 involvement wi thout evidence of necrosis (02/25/23) Other hammer toe(s) (acquired), left foot (02/25/23) Acquired deformities of toe(s), unspecified, left foot (02/25/23) Subjective Subjective Patient was seen and examined today, had a lengthy conversation with the patient and his concerning his medical care. I also talked with Dr. Bautista today about his medical care. Patient's white blood cell count today is normal. Objective Data Objective Data Vital Signs: Vital Signs Temp Pulse Resp BP Pulse Ox O2 Del Method 98.1 F 80 18 129/72 H 97 Room Air 02/26/23 14:28 02/26/23 16:00 02/26/23 14:28 02/26/23 14:28 02/26/23 14:28 02/26/23 14:28 Oxygen Delivery Method Room Air Weight: 95.708 kg Body Mass Index (BMI) 28.6 Intake & Output: Intake and Output for Last 24 Hours 02/24/23 02/25/23 02/26/23 23:59 23:59 23:59 Intake Total 860 / 860 1070 / 1070 Balance 860 / 860 1070 / 1070 Lab / Micro Data Result Diagrams: 02/26/23 07:06 02/26/23 07:06 Labs: Laboratory Results - last 24 hr 02/25/23 23:17: POC Glucose 171 H 02/26/23 07:06: WBC 9.0, RBC 4.49 L, Hgb 14.4, Hct 43.8, MCV 97.6 H, MCH 32.1 H, MCHC 32.9, RDW Std Deviation 50.3 H, RDW Coeff of Jaimee 14.2, Plt Count 222, MPV 10.6, Immature Gran % (Auto) 0.600, Neut % (Auto) 69.1, Lymph % (Auto) 19.7, Mcpherson % (Auto) 7.2, Eos % (Auto) 3.1, Baso % (Auto) 0.3, Absolute Neuts (auto) 6.2, Absolute Lymphs (auto) 1.78, Nucleated RBC % 0 02/26/23 07:06: Sodium 135 L, Potassium 4.2, Chloride 103, Carbon Dioxide 30.0, Anion Gap 2 L, BUN 23 H, Creatinine 1.28, Estim Creat Clear Calc 51.36, Est GFR (MDRD) Af Amer 70, Est GFR (MDRD) Non-Af 58 L, BUN/Creatinine Ratio 18.0, Glucose 156 H, Calcium 9.8 Physical Exam Const alert, oriented x3, no apparent distress and healthy appearing General Appearance: cooperative, well kempt and well developed Orientation / Consciousness: awake, oriented to person, oriented to place and oriented to time HEENT normocephalic and moist oral mucous membranes Eyes PERRL, EOMs intact bilaterally and conjunctivae normal Neck supple, no JVD, thyroid normal and no carotid bruits General: trachea midline Resp normal respiratory effort and clear to auscultation bilaterally Auscultation: Negative for rales, rhonchi or wheezes Cardio regular rate, regular rhythm, no murmurs, no rub and no gallops GI normal to inspection, nondistended, normoactive bowel sounds, soft to palpation, non-tender and non-distended Extremity Extremity Narrative: Patient's left foot is wrapped with surgical dressing, this was not removed for inspection of the area Neuro oriented x3, CN's II-XII intact bilaterally, moves all extremities, no focal motor deficits and no sensory deficits noted Sensorium / Orientation: awake, alert, oriented to person, oriented to place and oriented to time Speech: speech normal Psych affect normal Assessment & Plan Assessment/Plan (1) 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 of skin: PLAN: Plan 1. 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 at the base of the left great toe on its plantar surface-patient will be admitted to [facility] 3, he will be placed on IV meropenem, he will be seen in consultation by podiatry, his recent culture grew out Enterococcus #2 type 2 diabetes-blood sugars will be monitored with fingerstick blood sugars, sliding scale insulin will be given #3 cardiac arrhythmia-patient has a history of paroxysmal ventricular tachycardia, he currently is in normal sinus rhythm, patient is on metoprolol #4 psoriatic arthritis-patient is on methotrexate weekly #5 essential hypertension-patient is to remain on his current medication Total clinical time spent by myself addressing the patient's medical issues, reviewing all the data, and collaborating with patient's care team: 35 minutes Charges/Coding Visit Charges Inpatient E&M: 50340 Subs Hosp L2
[2023-02-26] MEDS: Pyridoxine HCl 100 MG Tablet PO (20:36)
[2023-02-26] MEDS: Pravastatin 40 MG Tablet PO (20:36)
[2023-02-26] MEDS: Oxybutynin 5 MG Tablet PO (20:36)
[2023-02-26] MEDS: Tamsulosin HCl 0.4 MG Capsule PO (20:37)
[2023-02-26] MEDS: Latanoprost 0.005% 1 Bottle 1 DRP EACH EYE (20:46)
[2023-02-27 04:22] VITALS: BP 155/73; PULSE 67; RESP 18; TEMP 36.5; O2SAT 98
[2023-02-27 08:28] VITALS: BP 156/72; PULSE 66; RESP 18; TEMP 36.7; O2SAT 100
[2023-02-27] MEDS: metFORMIN HCl 1,000 MG Tablet 1000 MG PO (08:30)
[2023-02-27] MEDS: Potassium Chloride Oral Tablet 20 MEQ PO (08:31)
[2023-02-27] MEDS: glipiZIDE 10 MG Tablet PO (08:31)
[2023-02-27] MEDS: Juven (unflavored) Packet 1 PACKET PO (08:31)
[2023-02-27] MEDS: hydroCHLOROthiazide 25 MG Tablet PO (08:32)
[2023-02-27] MEDS: Finasteride 5 MG Tablet PO (08:32)
[2023-02-27 08:33] VITALS: PULSE 66
[2023-02-27] MEDS: amLODIPine 2.5 MG Tablet PO (08:33)
[2023-02-27] MEDS: Metoprolol(XL)Succ 100 MG Tablet PO (08:33)
[2023-02-27] MEDS: Heparin Injection (Vial) 5,000 UNIT/ML VIAL 5000 UNIT SC (08:33)
[2023-02-27] MEDS: Timolol 0.25% 5ML OPTH.BTL 1 DRP EACH EYE (08:34)
[2023-02-27] MEDS: Lisinopril 40 MG Tablet PO (08:35)
[2023-02-27 08:44] VITALS: PULSE 68
[2023-02-27 10:35] LABS: Hemoglobin A1c 7.5 % (3.8-5.6)
--- NOTE | 2023-02-27 11:38 | DCINST_ITS ---
Discharge Instructions Diet Discharge Diet: 1800 Calorie Control Diet Activity Discharge Activity: Return to Normal Activity and - (no weight bearing on left forefoot) Weight Bearing Status: No weight bearing (left forefoot) Dressing / Incision Call your doctor if your incision/area has: - (do not change dressing) Change Dressing in: leave in place till F/U (with Dr. Farley) Follow Up Care Test Results: Test results from this visit will be discussed in further detail at your follow- up appointment, if applicable. Discharge Plan Admission Admit Date/Time: 02/25/23 16:33 Primary Reason for Your Visit: left foot cellulitis Attending Provider: Eddie Hendricks Primary Care Provider: Jose Turner Consulting Providers: Chevy Bautista Discharge Orders/Prescriptions Prescriptions: New acetaminophen 325 mg Tablet 650 mg PO Q6H PRN PRN (Reason: Pain 1-10 Or Fever >100.7) Qty: 0 0RF linezolid [Zyvox] 600 mg tablet 600 mg PO BID Qty: 14 0RF Rx Instructions: start today Continued Inflectra 100 mg recon soln IV UD Label Comments: IV Rx Instructions: 8 MG/KG, [id number] glucosamine HCl 1,500 mg tablet 1,500 mg PO BID Rx Instructions: administer with a meal cyanocobalamin (vitamin B-12) 100 mcg tablet 500 mcg PO DAILY glipizide 10 mg tablet 10 mg PO DAILY PRN (Reason: dm) cholecalciferol (vitamin D3) 25 mcg (1,000 unit) tablet 25 mcg PO DAILY pravastatin 40 mg tablet 40 mg PO QHS Qty: 90 3RF potassium chloride 20 mEq tablet,ER particles/crystals 20 meq PO DAILY Qty: 90 3RF tamsulosin 0.4 MG capsule 0.4 mg PO QHS metformin 1,000 MG tablet 1,000 mg PO BIDCM finasteride 5 MG tablet 5 mg PO DAILY methotrexate sodium 2.5 MG tablet 7.5 mg PO Q7D pyridoxine (vitamin B6) 50 MG tablet 100 mg PO QHS fluticasone propionate 1 SPRAY spray,suspension 2 spray NASAL DAILY PRN (Reason: Nasal Congestion) bimatoprost 1 DROP drops 1 drp EACH EYE DAILY folic acid 1 mg tablet 4 mg PO DAILY fexofenadine 180 mg tablet 180 mg PO DAILY PRN (Reason: allergies) oxybutynin chloride 5 MG tablet 5 mg PO QHS timolol maleate 1 DROP drops 1 drp EACH EYE BID multivitamin with folic acid 1 TABLET tablet 1 tab PO DAILY naproxen sodium 220 MG capsule 220 mg PO PRN PRN (Reason: Pain 1-10 Or Fever) metoprolol succinate 100 mg tablet extended release 24 hr 100 mg PO BID Qty: 180 3RF hydrochlorothiazide 25 mg tablet 25 mg PO DAILY Qty: 90 3RF amlodipine 2.5 mg tablet 2.5 mg PO DAILY Qty: 90 3RF lisinopril 40 mg tablet 40 mg PO DAILY Qty: 90 3RF Referrals / Follow Up: Jose Turner MD [Primary Care Provider] - Xiomara Farley DPM [Med Staff - Active Staff] - See Referral Note (see her this week) Disposition Disposition (needs filled in before D/C Order can be placed): Home, Self Care
--- NOTE | 2023-02-27 11:51 | PCM.DC.SUM ---
Providers Date of Admission: 02/25/23 Date of Discharge: 02/27/23 Primary Care Physician: Dr. Jose Turner MD Consultations 02/25/23 19:50 Consult: Podiatry Routine Consulting Provider: Chevy Bautista Reason for Consult: left foot cellulitis EMERGENT Consult: No MD Notified: Yes Date Notified: 02/25/23 Time Notified: 17:02 Method of Notification: Verbal Reason For Visit: CELLULITIS Diagnosis Discharge Diagnosis (1) Diabetic foot ulcer associated with type 2 diabetes mellitus: Status: Chronic Code(s): E11.621 - Type 2 diabetes mellitus with foot ulcer; L97.509 - Non-pressure chronic ulcer of other part of unspecified foot with unspecified severity Qualifiers: Diabetic foot ulcer location: toe Laterality: left Non-pressure ulcer stage: with bone involvement without evidence of necrosis Qualified Code(s): E11.621 - Type 2 diabetes mellitus with foot ulcer; L97.526 - 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 involvement without evidence of necrosis (2) Pressure ulcer of toe of right foot, stage 2: Status: Acute Code(s): L89.892 - Pressure ulcer of other site, stage 2 (3) Deformity of toe of left foot: Status: Acute Code(s): M20.62 - Acquired deformities of toe(s), unspecified, left foot (4) Cellulitis of left foot: Status: Acute Code(s): L03.116 - Cellulitis of left lower limb (5) Diabetes mellitus with diabetic polyneuropathy: Status: Acute Code(s): E11.42 - Type 2 diabetes mellitus with diabetic polyneuropathy (6) Acquired hammer toe of left foot: Status: Acute Code(s): M20.42 - Other hammer toe(s) (acquired), left foot (7) 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 of skin: Status: Chronic Code(s): L97.521 - 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 of skin Plan 1.?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 at the base of the left great toe on its plantar surface secondary to Enterococcus-patient will be admitted to [facility], he will be placed on IV meropenem, he will be seen in consultation by podiatry, his recent culture grew out Enterococcus #2 type 2 diabetes-blood sugars will be monitored with fingerstick blood sugars, sliding scale insulin will be given #3 cardiac arrhythmia-patient has a history of paroxysmal ventricular tachycardia, he currently is in normal sinus rhythm, patient is on metoprolol #4 psoriatic arthritis-patient is on methotrexate weekly #5 essential hypertension-patient is to remain on his current medication #6 neuropathy secondary to type 2 diabetes #7 chronic kidney [id number] to type 2 diabetes Medications at Discharge Home Medications finasteride 5 mg tablet 5 mg PO DAILY prostate 02/03/16 metformin 1,000 mg tablet 1,000 mg PO BIDCM dm 02/03/16 tamsulosin 0.4 mg capsule 0.4 mg PO QHS prostate 02/03/16 bimatoprost 0.01 % eye drops 1 drp EACH EYE DAILY glaucoma 06/30/18 fluticasone propionate 50 mcg/actuation nasal spray,suspension 2 spray NASAL DAILY PRN Nasal Congestion 06/30/18 methotrexate sodium 2.5 mg tablet 7.5 mg PO Q7D arthritis 06/30/18 pyridoxine (vitamin B6) 50 mg tablet 100 mg PO QHS supplement 06/30/18 multivitamin with folic acid 400 mcg tablet 1 tab PO DAILY supplement 10/20/18 oxybutynin chloride 5 mg tablet,extended release 24 hr 5 mg PO QHS bladder 10/20/18 timolol maleate 0.25 % eye drops 1 drp EACH EYE BID glaucoma 10/20/18 folic acid 1 mg tablet 4 mg PO DAILY supplement 06/01/19 glucosamine HCl 1,500 mg tablet 1,500 mg PO BID supplemt 02/20/20 glipizide 10 mg tablet 10 mg PO DAILY PRN dm 05/30/20 infliximab-dyyb 100 mg intravenous solution (Inflectra) mg IV UD psoriatic arthritis 05/30/20 naproxen sodium 220 mg capsule 220 mg PO PRN PRN Pain 1-10 Or Fever 09/24/20 cyanocobalamin (vitamin B-12) 100 mcg tablet 500 mcg PO DAILY supplement 12/01/20 cholecalciferol (vitamin D3) 25 mcg (1,000 unit) tablet 25 mcg PO DAILY supplement 02/03/22 fexofenadine 180 mg tablet 180 mg PO DAILY PRN allergies 02/03/22 potassium chloride 20 mEq tablet,extended release(part/cryst) 20 meq PO DAILY #90 tabs 02/03/22 amlodipine 2.5 mg tablet 2.5 mg PO DAILY #90 tabs 02/24/23 hydrochlorothiazide 25 mg tablet 25 mg PO DAILY #90 tabs 02/24/23 lisinopril 40 mg tablet 40 mg PO DAILY #90 tabs 02/24/23 metoprolol succinate 100 mg tablet,extended release 24 hr 100 mg PO BID bp/heart #180 tabs 02/24/23 acetaminophen 325 mg tablet 650 mg PO Q6H PRN PRN Pain 1-10 Or Fever >100.7 #0 tabs 02/27/23 linezolid 600 mg tablet (Zyvox) 600 mg PO BID #14 tabs 02/27/23 pravastatin 40 mg tablet 40 mg PO QHS cholesterol #90 tabs 02/28/23 Hospital Course Operations None Procedures None Summary of Care Provided Minutes Spent on Discharge: 39 Hospital Course: This 77-year-old white male was seen in the emergency room at [facility] with complaints of drainage from his chronic left foot wound, he was seeing podiatry as an outpatient (Dr. Farley), a culture was obtained recently that grew out Enterococcus. Patient had been on doxycycline for a time as an outpatient but was no longer on it. Patient had labs performed in the emergency room which showed an elevated white count of 13.7, chemistry panel showed a slightly elevated creatinine-it appears that the patient had elevated creatinines before. Patient was admitted to [place] [address] for neuropathic ulceration of the left foot with infection from Enterococcus, he was placed on meropenem, he was seen in consultation by Dr. Bautista of podiatry. Conversations were carried out over the phone with Dr. Farley-she felt that she could see the patient as an outpatient after the patient was discharged from the hospital and arrange for further intervention. Patient improved during his hospital stay, his wound was washed out by podiatry (Dr. Bautista) and there were no complications during his hospitalization. On 02/27/2023, patient was seen and examined: On examination he appeared in good health and spirits. Vital signs as documented. Skin warm and dry and without overt rashes. Neck without JVD, neck was supple, trachea midline, thyroid was normal. Lungs clear bilaterally, normal air movement was noted. Heart exam notable for regular rhythm, normal sounds and absence of murmurs, rubs or gallops. Abdomen unremarkable and without evidence of organomegaly, masses, or abdominal aortic enlargement. Bowel sounds are present, abdomen is not distended. Extremities-left foot was wrapped with surgical dressing this was not removed for examination, nonedematous, no cyanosis was noted, no clubbing was noted. Neuro: Cranial nerves II through XII are grossly intact, no focal motor deficits were noted, sensation to light touch and pinprick intact, motor exam 5/5 throughout. Psych: Patient is alert and oriented x3, he does not appear anxious or depressed, he does not appear agitated. Patient was discharged in stable condition on 02/27/2023 Weight / BMI Weight Weight: 95.708 kg Body Mass Index (BMI) 28.6 ABG / Lab / Microbiology Data Result Diagrams: 02/26/23 07:06 02/26/23 07:06 Laboratory: Laboratory Results - last 24 hr 02/26/23 07:06: Hemoglobin A1c 7.5 H D/C Instructions Discharge Diet: 1800 Calorie Control Diet Weight Bearing Status: No weight bearing (left forefoot) Call your doctor if your incision/area has: - (do not change dressing) Meaningful Use Info Meaningful Use Diagnoses (Choose all that apply): None applicable Discharge Plan Admission Admit Date/Time: 02/25/23 16:33 Primary Reason for Your Visit: left foot cellulitis Attending Provider: Eddie Hendricks Primary Care Provider: Jose Turner Consulting Providers: Chevy Bautista Discharge Orders/Prescriptions Prescriptions: New acetaminophen 325 mg Tablet 650 mg PO Q6H PRN PRN (Reason: Pain 1-10 Or Fever >100.7) Qty: 0 0RF linezolid [Zyvox] 600 mg tablet 600 mg PO BID Qty: 14 0RF Rx Instructions: start today Continued Inflectra 100 mg recon soln IV UD Label Comments: IV Rx Instructions: 8 MG/KG, [id number] glucosamine HCl 1,500 mg tablet 1,500 mg PO BID Rx Instructions: administer with a meal cyanocobalamin (vitamin B-12) 100 mcg tablet 500 mcg PO DAILY glipizide 10 mg tablet 10 mg PO DAILY PRN (Reason: dm) cholecalciferol (vitamin D3) 25 mcg (1,000 unit) tablet 25 mcg PO DAILY potassium chloride 20 mEq tablet,ER particles/crystals 20 meq PO DAILY Qty: 90 3RF tamsulosin 0.4 MG capsule 0.4 mg PO QHS metformin 1,000 MG tablet 1,000 mg PO BIDCM finasteride 5 MG tablet 5 mg PO DAILY methotrexate sodium 2.5 MG tablet 7.5 mg PO Q7D pyridoxine (vitamin B6) 50 MG tablet 100 mg PO QHS fluticasone propionate 1 SPRAY spray,suspension 2 spray NASAL DAILY PRN (Reason: Nasal Congestion) bimatoprost 1 DROP drops 1 drp EACH EYE DAILY folic acid 1 mg tablet 4 mg PO DAILY fexofenadine 180 mg tablet 180 mg PO DAILY PRN (Reason: allergies) oxybutynin chloride 5 MG tablet 5 mg PO QHS timolol maleate 1 DROP drops 1 drp EACH EYE BID multivitamin with folic acid 1 TABLET tablet 1 tab PO DAILY naproxen sodium 220 MG capsule 220 mg PO PRN PRN (Reason: Pain 1-10 Or Fever) metoprolol succinate 100 mg tablet extended release 24 hr 100 mg PO BID Qty: 180 3RF hydrochlorothiazide 25 mg tablet 25 mg PO DAILY Qty: 90 3RF amlodipine 2.5 mg tablet 2.5 mg PO DAILY Qty: 90 3RF lisinopril 40 mg tablet 40 mg PO DAILY Qty: 90 3RF No Action pravastatin 40 mg tablet 40 mg PO QHS Qty: 90 3RF Referrals / Follow Up: Jose Turner MD [Primary Care Provider] - Xiomara Farley DPM [Med Staff - Active Staff] - See Referral Note (see her this week) Disposition Disposition (needs filled in before D/C Order can be placed): Home, Self Care Charges/Coding Visit Charges Inpatient E&M: 87903 Disch Hosp >30min
--- NOTE | 2023-02-28 13:02 | NURSING ---
SILVIO CM Discharge Follow-up Phone Call: RUDDY:Jacqui Strata:3 Date of Call:02/28/23 Time of Call:1302 Admitting Diagnosis:Cellulitis Summary of Call: Left VM message. Instructed for questions call PCP.
--- NOTE | 2023-03-01 09:29 | PCM.HP.STD ---
HPI - General General Date of Admission: 02/25/23 Date of Service: 02/25/23 Chief Complaint: Left foot pain, redness, infection HPI Narrative Patient was seen and examined today, he came to the ER with complaints of increased redness and pain in his left foot.? Patient has a chronic ulceration over the plantar surface of the great toe area, he has been seen in the wound center here by Dr. Bautista (podiatry) in December.? Work-up in the emergency room showed the patient have an elevated white blood cell count of 13.7, creatinine was 1.31, BUN was 27, glucose was 155.? C-reactive protein was elevated at 50.3.? X-ray of the left foot was obtained that showed degenerative changes throughout the left foot, no acute fracture or suspicious erosive bone lesion was noted, there is nonspecific soft tissue swelling but no subcutaneous emphysema noted. Patient had a recent outpatient culture done of his wound on his left foot, the culture grew out Enterococcus, it is susceptible to ampicillin, Zyvox, streptomycin, vancomycin, and gentamicin.? Patient is unfortunately allergic to penicillin which causes a severe rash. Patient will be admitted to [place] [address], he was placed on IV meropenem for cellulitis of the left foot, he will be seen in consultation by Dr. Bautista podiatry, he usually follows up as an outpatient with Dr. Freeman.? Patient's home medications will be continued, blood sugars will be monitored. [facility] Medical History (Updated 02/25/23 @ 18:[address] Chevy Bautista, DPElvia) Acute osteomyelitis involving ankle and foot Arthritis Asthma Atrial fibrillation Body mass index 31.0-31.9, adult Cellulitis Chronic osteomyelitis involving ankle and foot CPAP (continuous positive airway pressure) dependence Diabetes mellitus Ectopic atrial tachycardia Essential hypertension Hyperlipidemia Hypertension Long-term use of high-risk medication Methicillin susceptible Staphylococcus aureus infection Nonhealing nonsurgical wound with fat layer exposed RAJESH (obstructive sleep apnea) Paroxysmal ventricular tachycardia Premature atrial contractions Premature ventricular contraction Psoriasis Secondary pulmonary arterial hypertension Shortness of breath Sleep apnea Supraventricular tachycardia Home Medications finasteride 5 mg tablet 5 mg PO DAILY prostate 02/03/16 [History Last Taken Unknown] metformin 1,000 mg tablet 1,000 mg PO BIDCM dm 02/03/16 [History Last Taken 02/25/23] tamsulosin 0.4 mg capsule 0.4 mg PO QHS prostate 02/03/16 [History Last Taken 02/24/23] bimatoprost 0.01 % eye drops 1 drp EACH EYE DAILY glaucoma 06/30/18 [History Last Taken 02/25/23] fluticasone propionate 50 mcg/actuation nasal spray,suspension 2 spray NASAL DAILY PRN Nasal Congestion 06/30/18 [History Last Taken Unknown] methotrexate sodium 2.5 mg tablet 7.5 mg PO Q7D arthritis 06/30/18 [History Last Taken 02/23/23] pyridoxine (vitamin B6) 50 mg tablet 100 mg PO QHS supplement 06/30/18 [History Last Taken 02/24/23] multivitamin with folic acid 400 mcg tablet 1 tab PO DAILY supplement 10/20/18 [History Last Taken 02/25/23] oxybutynin chloride 5 mg tablet,extended release 24 hr 5 mg PO QHS bladder 10/20/18 [History Last Taken 02/24/23] timolol maleate 0.25 % eye drops 1 drp EACH EYE BID glaucoma 10/20/18 [History Last Taken 02/25/23] folic acid 1 mg tablet 4 mg PO DAILY supplement 06/01/19 [History Last Taken Unknown] glucosamine HCl 1,500 mg tablet 1,500 mg PO BID supplemt 02/20/20 [History Last Taken 02/25/23] glipizide 10 mg tablet 10 mg PO DAILY PRN dm 05/30/20 [History Last Taken 02/25/23] infliximab-dyyb 100 mg intravenous solution (Inflectra) mg IV UD psoriatic arthritis 05/30/20 [History Last Taken 02/18/23] naproxen sodium 220 mg capsule 220 mg PO PRN PRN Pain 1-10 Or Fever 09/24/20 [History Last Taken 02/25/23] cyanocobalamin (vitamin B-12) 100 mcg tablet 500 mcg PO DAILY supplement 12/01/20 [History Last Taken 02/25/23] cholecalciferol (vitamin D3) 25 mcg (1,000 unit) tablet 25 mcg PO DAILY supplement 02/03/22 [History Last Taken 02/24/23] fexofenadine 180 mg tablet 180 mg PO DAILY PRN allergies 02/03/22 [History Last Taken Unknown] potassium chloride 20 mEq tablet,extended release(part/cryst) 20 meq PO DAILY #90 tabs 02/03/22 [Rx Last Taken 02/25/23] amlodipine 2.5 mg tablet 2.5 mg PO DAILY #90 tabs 02/24/23 [Rx Last Taken 02/25/23] hydrochlorothiazide 25 mg tablet 25 mg PO DAILY #90 tabs 02/24/23 [Rx Last Taken 02/25/23] lisinopril 40 mg tablet 40 mg PO DAILY #90 tabs 02/24/23 [Rx Last Taken 02/25/23] metoprolol succinate 100 mg tablet,extended release 24 hr 100 mg PO BID bp/heart #180 tabs 02/24/23 [Rx Last Taken 02/25/23] acetaminophen 325 mg tablet 650 mg PO Q6H PRN PRN Pain 1-10 Or Fever >100.7 #0 tabs 02/27/23 [Rx Last Taken Unknown] linezolid 600 mg tablet (Zyvox) 600 mg PO BID #14 tabs 02/27/23 [Rx Last Taken Unknown] pravastatin 40 mg tablet 40 mg PO QHS cholesterol #90 tabs 02/28/23 [Rx Last Taken Unknown] Allergy/AdvReac Type Severity Reaction Status Date / Time cephalexin [From Keflex] Allergy Severe rash Verified 02/25/23 12:02 sulfamethoxazole Allergy Severe Rash Verified 02/25/23 12:02 [From Bactrim] trimethoprim [From Bactrim] Allergy Severe Rash Verified 02/25/23 12:02 Penicillins Allergy Rash Verified 02/25/23 17:04 levofloxacin [From Levaquin] AdvReac Other Verified 02/25/23 12:02 Family History Father Cancer Prostate Mother Depression Surgical History excision of skin cancer History of foot surgery History of hammer toe correction (09/26/20) History of hernia repair History of partial amputation of toe History of tonsillectomy and adenoidectomy Social History Smoking Status: Former smoker pack-years: 30 alcohol intake: current alcohol intake frequency: holidays/special occasions only substance use type: does not use caffeine: Yes Type: coffee Number of servings: 3 what type of physical activity do you participate in: running and weight training frequency: 1-2 times per week ROS Constitutional Constitutional: Denies anorexia, change in weight, chills, fatigue, fever(s), malaise, night sweats or weakness Eyes Eyes: Denies blurry vision, change in vision, discharge from eye(s) or eye pain Cardiovascular Cardiovascular: Denies chest pain, claudication, edema or palpitations Respiratory/Chest Respiratory/Chest: Denies cough, hemoptysis, shortness of breath at rest or shortness of breath with exertion Gastrointestinal Gastrointestinal: Denies abdominal pain, constipation, diarrhea, hematemesis, hematochezia, melena, nausea or vomiting Genitourinary Genitourinary: Denies dysuria, hematuria, urinary frequency, urinary hesitancy, urinary incontinence or urinary urgency Musculoskeletal Musculoskeletal: Reports other Details: Chronic left first toe ulceration at the base of the left first toe ; Denies back pain, joint pain, joint stiffness, joint swelling, myalgias or neck pain Neurologic Neurologic: Denies abnormal gait, abnormal speech, confusion, dizziness, focal weakness, headache(s), loss of vision, numbness, other visual disturbances, paresthesias, syncope or tingling Psychiatric Psychiatric: Denies anxiety, cognitive impairment, depression, irritability, mood swings or suicidal ideation Endocrine Endocrinology: Denies change in body appearance, cold intolerance, excessive sweating, heat intolerance, polydipsia or polyuria Hematologic/Lymphatic Hematologic/Lymphatic: Denies none, anemia, easy bleeding, easy bruising or lymphadenopathy Allergic/Immunologic Allergic/Immunologic: Denies rhinitis, urticaria, eczemia or asthma Vital Signs Vital Signs Vital Signs: Weight Weight: 95.708 kg Body Mass Index (BMI) 28.6 Physical Exam Const alert, oriented x3, no apparent distress and average body habitus General Appearance: cooperative, well kempt and well developed Orientation / Consciousness: awake, oriented to person, oriented to place and oriented to time HEENT normocephalic, head/scalp atraumatic, hearing grossly normal bilaterally and moist oral mucous membranes Eyes PERRL, EOMs intact bilaterally and conjunctivae normal Neck supple, no JVD, thyroid normal and no carotid bruits General: trachea midline Resp normal respiratory effort, no retractions, no use of accessory muscles and clear to auscultation bilaterally Auscultation: Negative for rales, rhonchi or wheezes Cardio regular rate, regular rhythm, S1 normal heart sound, S2 normal heart sound, no murmurs, no rub and no gallops GI normal to inspection, nondistended, normoactive bowel sounds, soft to palpation, non-tender and non-distended Extremity Extremity Narrative: There is an ulceration noted on the plantar surface of the left great toe, this area is approximately 1/2 to 1 cm in diameter, depth is unknown Skin Skin Narrative: There is an ulceration on the plantar aspect of the left great toe at its base Neuro oriented x3, CN's II-XII intact bilaterally, moves all extremities and no focal motor deficits Neuro Narrative: There is decreased sensation to light touch over both feet bilaterally on their plantar surface Sensorium / Orientation: awake, alert, oriented to person, oriented to place and oriented to time Speech: speech normal Psych affect normal Results Lab / Micro Data Result Diagrams: 02/26/23 07:06 02/26/23 07:06 Assessment & Plan Assessment/Plan (1) 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 of skin: PLAN: Plan 1. 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 at the base of the left great toe on its plantar surface-patient will be admitted to [facility], he will be placed on IV meropenem, he will be seen in consultation by podiatry, his recent culture grew out Enterococcus #2 type 2 diabetes-blood sugars will be monitored with fingerstick blood sugars, sliding scale insulin will be given #3 cardiac arrhythmia-patient has a history of paroxysmal ventricular tachycardia, he currently is in normal sinus rhythm, patient is on metoprolol #4 psoriatic arthritis-patient is on methotrexate weekly #5 essential hypertension-patient is to remain on his current medication Total clinical time spent by myself addressing the patient's medical issues, reviewing all the data, and collaborating with patient's care team: 75 minutes Charges/Coding Visit Charges Inpatient E&M: 30605 Init Hosp L3
== END 2023-02-27 12:47 | disposition home or self-care (01) | DRG 623 ==
LOC: ED 14:30 → MS3 16:56
PROVIDERS: Admitting Provider Internal Medicine; Emergency Provider Emergency Medicine; PCP Family Medicine; Visit Provider Internal Medicine
DX: E11.621 Type 2 diabetes mellitus with foot ulcer (principal); L03.116 Cellulitis of left lower limb; L97.526 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 involvement without evidence of necrosis; I27.21 Secondary pulmonary arterial hypertension; E11.22 Type 2 diabetes mellitus with diabetic chronic kidney disease; E11.42 Type 2 diabetes mellitus with diabetic polyneuropathy; E11.628 Type 2 diabetes mellitus with other skin complications; L89.892 Pressure ulcer of other site, stage 2; L97.522 Non-pressure chronic ulcer of other part of left foot with fat layer exposed; N18.31 Chronic kidney disease, stage 3a; L40.50 Arthropathic psoriasis, unspecified; M20.42 Other hammer toe(s) (acquired), left foot; I12.9 Hypertensive chronic kidney disease with stage 1 through stage 4 chronic kidney disease, or unspecified chronic kidney disease; I49.9 Cardiac arrhythmia, unspecified; E78.5 Hyperlipidemia, unspecified; M19.072 Primary osteoarthritis, left ankle and foot; G47.33 Obstructive sleep apnea (adult) (pediatric); Z79.1 Long term (current) use of non-steroidal anti-inflammatories (NSAID); Z79.84 Long term (current) use of oral hypoglycemic drugs; Z79.899 Other long term (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; Z87.891 Personal history of nicotine dependence; Z88.0 Allergy status to penicillin
CPT/HCPCS: 73630; 80048; 82962; 83036; 85025; 85652; 86140; 87070; 87077; 87186; 87205; 97162; 97165; 97802; 99284; J2185; J7040; A4216

== ENCOUNTER 2023-03-25 09:24 | Outpatient (CLI) | payer MEDICARE, OTHER, SELFPAY ==
[2023-03-25 09:41] VITALS: BP 137/62; PULSE 68; RESP 16; O2SAT 100; BMI 29.0
[2023-03-25] MEDS: DiphenhydrAMINE 50 MG/ML Syringe 12.5 MG IV (09:55)
== END 2023-03-25 09:25 | disposition home or self-care (01) ==
LOC: MEDOUTP 09:24
PROVIDERS: PCP Family Medicine; Referring Provider Family Medicine; Visit Provider Family Medicine
DX: L40.52 Psoriatic arthritis mutilans (principal); L40.3 Pustulosis palmaris et plantaris; L85.3 Xerosis cutis; Z79.899 Other long term (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; M50.90 Cervical disc disorder, unspecified, unspecified cervical region; M17.0 Bilateral primary osteoarthritis of knee; L21.9 Seborrheic dermatitis, unspecified; L30.9 Dermatitis, unspecified; Z79.1 Long term (current) use of non-steroidal anti-inflammatories (NSAID)
CPT/HCPCS: 96413; 96415; 96375; J7050; A4216; Q5103

== ENCOUNTER → 2023-03-29 | Outpatient (CLI) | payer MEDICARE, OTHER, SELFPAY | END | disposition home or self-care (01) | LOC: LABSPEC 15:27 | PROVIDERS: PCP Family Medicine; Referring Provider Podiatrist; Visit Provider Podiatrist | DX: L02.612 Cutaneous abscess of left foot (principal) | CPT/HCPCS: 87070; 87077; 87186; 87205 ==

== ENCOUNTER → 2023-04-26 | Outpatient (CLI) | payer MEDICARE, OTHER, SELFPAY ==
[2023-04-26 13:06] LABS: Absolute Lymphocyte Count 1.68 X10^3/uL (0.83-4.51); Absolute Neutrophil Count 4.8 X10^3/uL (2.0-7.7); Basophil# 0.07 X10^3/uL; Basophil% 0.9 % (0-1); Eosinophil# 0.55 X10^3/uL; Hematocrit 40.5 % (40-54); Hemoglobin 13.4 g/dL (13.0-16.5); Lymphocyte # 1.68 X10^3/ul (0.83-4.51); Lymphocyte % 21.3 % (19-41); Mean Corp Hgb Conc 33.1 g/dL (32-36); Mean Corpuscular Hgb 32.7 pg (27.0-32.0); Mean Corpuscular Volume 98.8 fL (80-94); Mean Platelet Vol. 10.3 fl (6.2-12.0); Monocyte# 0.77 X10^3/uL; Monocyte% 9.8 % (0-10); NRBC Flagged by Analyzer 0 % (0-5); Neutrophil # 4.79 X10^3/uL (2.7-7.7); Neutrophil % 60.6 % (47-70); Platelet Count 317 K/mm3 (150-450); RBC Distribution Width CV 13.4 % (11.6-14.6); RBC Distribution Width SD 47.6 fl (35.1-43.9); White Blood Count 7.9 K/mm3 (4.4-11.0)
[2023-04-26 13:16] LABS: Erythrocyte Sedimentation Rate 10 mm/hr (0-20)
[2023-04-26 13:33] LABS: AST(SGOT) 24 U/L (15-37); Alanine Aminotransfer ALT/SGPT 38 U/L (16-61); CRP < 2.90 mg/L (0.0-3.0); Creatinine, Serum 1.55 mg/dL (0.70-1.30); EST Glomerular Filtration Rate 46 mL/min (>60); Est Glom Filt Rate - Afr Amer 56 mL/min (>60); PSA,Total- Diagnostic 1.28 ng/mL (0.0-4.0)
== END | disposition home or self-care (01) ==
LOC: LAB 12:25
PROVIDERS: PCP Family Medicine; Referring Provider Urology; Visit Provider Urology
DX: L40.52 Psoriatic arthritis mutilans (principal); L40.3 Pustulosis palmaris et plantaris; L57.0 Actinic keratosis; L85.3 Xerosis cutis; L57.8 Other skin changes due to chronic exposure to nonionizing radiation; L21.9 Seborrheic dermatitis, unspecified; L82.1 Other seborrheic keratosis; L30.1 Dyshidrosis [pompholyx]; M17.0 Bilateral primary osteoarthritis of knee; M50.90 Cervical disc disorder, unspecified, unspecified cervical region; Z79.899 Other long term (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; Z79.1 Long term (current) use of non-steroidal anti-inflammatories (NSAID); Z85.828 Personal history of other malignant neoplasm of skin; Z87.39 Personal history of other diseases of the musculoskeletal system and connective tissue; Z85.46 Personal history of malignant neoplasm of prostate
CPT/HCPCS: 82565; 84153; 84450; 84460; 85025; 85652; 86140

== ENCOUNTER → 2023-05-04 | Outpatient (CLI) | payer MEDICARE, OTHER, SELFPAY ==
[2023-05-04 11:16] LABS: BUN 27 mg/dL (7-18); Creatinine, Serum 1.15 mg/dL (0.70-1.30); EST Glomerular Filtration Rate 65 mL/min (>60); Glucose 186 mg/dL (74-106)
[2023-05-04 11:17] LABS: Anion Gap 3 (5-15); BUN/Creat Ratio 23.5 RATIO (10-20); Calcium,Total 9.2 mg/dL (8.5-10.1); Chloride 110 mmol/L (98-107); Est Glom Filt Rate - Afr Amer 79 mL/min (>60); Potassium 4.1 mmol/L (3.5-5.1); Sodium Level 141 mmol/L (136-145)
== END | disposition home or self-care (01) ==
LOC: MFPLAB 08:48
PROVIDERS: PCP Family Medicine; Visit Provider Family Medicine
DX: N18.2 Chronic kidney disease, stage 2 (mild) (principal)
CPT/HCPCS: 36415; 80048

== ENCOUNTER → 2023-05-10 | Outpatient (CLI) | payer MEDICARE, OTHER, SELFPAY | END | disposition home or self-care (01) | LOC: LABSPEC 16:15 | PROVIDERS: PCP Family Medicine; Referring Provider Podiatrist; Visit Provider Podiatrist | DX: L97.524 Non-pressure chronic ulcer of other part of left foot with necrosis of bone (principal) | CPT/HCPCS: 87070; 87077; 87186; 87205 ==

== ENCOUNTER → 2023-05-13 | Outpatient (CLI) | payer MEDICARE, OTHER, SELFPAY ==
--- NOTE | 2023-05-13 09:54 | ART_ITS ---
Reason For Study: PVD Procedure A bilateral lower extremity continuous wave Doppler with analog waveform analysis and ankle brachial indexes. Left Segmental Pressures Left brachial= 142mmHg. Left posterior tibial artery = 168mmHg. Left dorsalis pedis artery = 175mmHg. Left digit = >254 mmHg. The left posterior tibial artery waveforms are triphasic. The left dorsalis pedis waveforms are triphasic. Right Segmental Pressures Right brachial= 147mmHg. Right posterior tibial artery = 197mmHg. Right dorsalis pedis artery = 176mmHg. Right digit = 83 mmHg. The right posterior tibial artery waveforms are triphasic. The right dorsalis pedis waveforms are triphasic. Indices The right ankle brachial index by the posterior tibial artery is 1.34. The right ankle brachial index by the dorsalis pedis is 1.20. The right digital-brachial index is 0.56. The left ankle brachial index by the posterior tibial artery is 1.14. The left ankle brachial index by the dorsalis pedis is 1.19. The left digital-brachial index is N/C. VL/Ankle Brachial Index Interpretation Summary Triphasic Doppler waveforms are noted at ankle level bilaterally. Pulse-volume recordings appear satisfactory at ankle and digital level bilaterally. Resting ankle-brachial ind ices are normal bilaterally. The right digital-brachial index is mildly diminished. The left di gital-brachial index could not be determined due to the non-compressibility of the vasculature at di gital level on the left. Arterial flow appears normal at ankle level bilaterally. There is evidence of m ild arterial occlusive disease at digital level on the right. Arterial flow at digital level on the left could not be fully assessed due to the non-compressibility of the vasculature at digi enrique level on the left. Ordering Physician: Xiomara Farley Referring Physician: Jose Turner MD Performed By: Kush Segovia, RVT
== END | disposition home or self-care (01) ==
LOC: CVS 09:53
PROVIDERS: PCP Family Medicine; Referring Provider Podiatrist; Visit Provider Podiatrist
DX: I73.9 Peripheral vascular disease, unspecified (principal)
CPT/HCPCS: 93922

== ENCOUNTER 2023-05-27 09:25 | Outpatient (CLI) | payer MEDICARE, OTHER, SELFPAY ==
[2023-05-27 09:58] VITALS: BP 116/52; PULSE 62; RESP 16; TEMP 36.2; O2SAT 96; BMI 28.6
[2023-05-27] MEDS: DiphenhydrAMINE 50 MG/ML Syringe 12.5 MG IV (10:25)
[2023-05-27] MEDS: 0.9% NaCl IVPB Med Flush (250 mL) 15 ML IV (10:29)
[2023-05-27] MEDS: 0.9% NaCl Peripheral Flush Adult/Peds IV (10:29)
== END 2023-05-27 09:26 | disposition home or self-care (01) ==
LOC: MEDOUTP 09:26
PROVIDERS: PCP Family Medicine; Referring Provider Family Medicine; Visit Provider Family Medicine
DX: L40.50 Arthropathic psoriasis, unspecified (principal)
CPT/HCPCS: 96413; 96415; 96375; J7050; A4216; Q5103

== ENCOUNTER 2023-06-13 17:30 | Outpatient (RCR) | payer SELFPAY | END 2023-06-13 23:59 | LOC: NS 17:30 | PROVIDERS: PCP Family Medicine | DX: Z71.3 Dietary counseling and surveillance (principal); E11.9 Type 2 diabetes mellitus without complications ==

== ENCOUNTER 2023-07-08 09:58 | Outpatient (CLI) | payer MEDICARE, OTHER, SELFPAY ==
[2023-07-08 10:24] VITALS: BP 125/64; PULSE 86; RESP 16; TEMP 36.4; O2SAT 98; BMI 29.0
[2023-07-08] MEDS: 0.9% NaCl Peripheral Flush Adult/Peds IV (10:45)
[2023-07-08] MEDS: DiphenhydrAMINE 50 MG/ML Syringe 12.5 MG IV (10:55)
[2023-07-08] MEDS: 0.9% NaCl IVPB Med Flush (250 mL) 15 ML IV (10:55)
== END 2023-07-08 09:59 | disposition home or self-care (01) ==
LOC: MEDOUTP 09:59
PROVIDERS: PCP Family Medicine; Referring Provider Internal Medicine Rheumatology; Visit Provider Internal Medicine Rheumatology
DX: L40.50 Arthropathic psoriasis, unspecified (principal)
CPT/HCPCS: 96413; 96415; 96375; J7050; A4216; Q5103

== ENCOUNTER 2023-08-19 10:00 | Outpatient (CLI) | payer MEDICARE, OTHER, SELFPAY ==
[2023-08-19 10:09] VITALS: BP 143/75; PULSE 94; RESP 16; TEMP 35.8; O2SAT 99; BMI 29.1
[2023-08-19] MEDS: 0.9% NaCl Peripheral Flush Adult/Peds IV (10:29)
[2023-08-19] MEDS: DiphenhydrAMINE 50 MG/ML Syringe 12.5 MG IV (10:39)
[2023-08-19] MEDS: 0.9% NaCl IVPB Med Flush (250 mL) 15 ML IV (10:39)
[2023-08-19] MEDS: NORMAL SALINE 0.9% IV (11:02)
[2023-08-19] MEDS: INFLIXIMAB DYYB IV (11:02)
== END 2023-08-19 10:01 | disposition home or self-care (01) ==
PROVIDERS: PCP Family Medicine; Referring Provider Internal Medicine Rheumatology; Visit Provider Internal Medicine Rheumatology
DX: L40.50 Arthropathic psoriasis, unspecified (principal)
CPT/HCPCS: 96365; 96366; J7050; A4216; Q5103

== ENCOUNTER 2023-08-22 13:35 | Outpatient (RCR) | payer MEDICARE, OTHER, SELFPAY ==
[2023-08-22 14:48] LABS: Absolute Lymphocyte Count 2.02 X10^3/uL (0.83-4.51); Absolute Neutrophil Count 4.1 X10^3/uL (2.0-7.7); Basophil# 0.07 X10^3/uL; Basophil% 0.9 % (0-1); Eosinophil# 0.68 X10^3/uL; Eosinophils% 8.8 % (0-5); Hematocrit 38.1 % (40-54); Hemoglobin 13.2 g/dL (13.0-16.5); Lymphocyte # 2.02 X10^3/ul (0.83-4.51); Mean Corp Hgb Conc 34.6 g/dL (32-36); Mean Corpuscular Hgb 34.1 pg (27.0-32.0); Mean Corpuscular Volume 98.4 fL (80-94); Mean Platelet Vol. 10.4 fl (6.2-12.0); Monocyte# 0.88 X10^3/uL; Monocyte% 11.3 % (0-10); NRBC Flagged by Analyzer 0 % (0-5); Neutrophil # 4.08 X10^3/uL (2.7-7.7); Neutrophil % 52.6 % (47-70); Platelet Count 303 K/mm3 (150-450); RBC Distribution Width CV 14.6 % (11.6-14.6); RBC Distribution Width SD 49.7 fl (35.1-43.9); Red Blood Count 3.87 M/mm3 (4.6-6.2); White Blood Count 7.8 K/mm3 (4.4-11.0)
[2023-08-22 14:51] LABS: Erythrocyte Sedimentation Rate 10 mm/hr (0-20)
[2023-08-22 15:13] LABS: AST(SGOT) 36 U/L (15-37); Alanine Aminotransfer ALT/SGPT 57 U/L (16-61); CRP < 2.90 mg/L (0.0-3.0); Creatinine, Serum 1.23 mg/dL (0.70-1.30); EST Glomerular Filtration Rate 60 mL/min (>60); Est Glom Filt Rate - Afr Amer 73 mL/min (>60)
== END 2023-08-22 18:00 | disposition home or self-care (01) ==
LOC: LAB 13:35
PROVIDERS: PCP Family Medicine; Referring Provider Internal Medicine Rheumatology; Visit Provider Internal Medicine Rheumatology
DX: L40.50 Arthropathic psoriasis, unspecified (principal); L40.52 Psoriatic arthritis mutilans; L40.3 Pustulosis palmaris et plantaris; R94.4 Abnormal results of kidney function studies; Z79.1 Long term (current) use of non-steroidal anti-inflammatories (NSAID); Z85.828 Personal history of other malignant neoplasm of skin; Z87.39 Personal history of other diseases of the musculoskeletal system and connective tissue; Z79.899 Other long term (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; Z79.631 Long term (current) use of antimetabolite agent; M50.90 Cervical disc disorder, unspecified, unspecified cervical region; M17.0 Bilateral primary osteoarthritis of knee; Z79.620 Long term (current) use of immunosuppressive biologic
CPT/HCPCS: 36415; 82565; 84450; 84460; 85025; 85652; 86140

== ENCOUNTER 2023-09-30 10:00 | Outpatient (CLI) | payer MEDICARE, OTHER, SELFPAY ==
[2023-09-30 10:09] VITALS: BP 142/81; PULSE 76; RESP 16; TEMP 36.1; O2SAT 99; BMI 30.1
[2023-09-30] MEDS: DiphenhydrAMINE 50 MG/ML Syringe 12.5 MG IV (10:20)
[2023-09-30] MEDS: 0.9% NaCl IVPB Med Flush (250 mL) 15 ML IV (10:21)
[2023-09-30] MEDS: 0.9% NaCl Peripheral Flush Adult/Peds IV (10:23)
[2023-09-30 13:45] VITALS: BP 130/67; PULSE 75; TEMP 36.2
== END 2023-09-30 10:01 | disposition home or self-care (01) ==
LOC: MEDOUTP 10:00
PROVIDERS: PCP Family Medicine; Referring Provider Internal Medicine Rheumatology; Visit Provider Internal Medicine Rheumatology
DX: L40.50 Arthropathic psoriasis, unspecified (principal)
CPT/HCPCS: 96413; 96415; 96375; 96365; 96366; J7050; A4216; Q5103

== ENCOUNTER 2023-11-11 09:52 | Outpatient (CLI) | payer MEDICARE, OTHER, SELFPAY ==
[2023-11-11 10:04] VITALS: BP 167/63; PULSE 77; RESP 16; TEMP 36.3; O2SAT 98; BMI 29.0
[2023-11-11] MEDS: 0.9% NaCl Peripheral Flush Adult/Peds IV (10:29)
--- OUTSIDE RECORDS SUMMARY | 2023-11-11 10:30 | XMS RPT_ITS | CCD ---
Author Name Unknown Address [address] [place] [address] Organization [facility] Care Team Providers Care Tool And Production Planner Name Role Phone Tomasa Russell CNP Unavailable MD Teri, Larry S Unavailable Zach Turner Primary Care Provider Zach Turner Primary Care Provider Zach Turner MD Primary Care Provider Zach Turner MD Primary Care Provider Zach Turner MD A Primary Care Provider PATRICK FARLEY DPM Primary Care Unavailable CRYSTAL, PATRICK DPM Admitting Unavailable TURNER ZACH A Consulting Unavailable CRYSTAL, PATRICK DPM Attending Unavailable PROVIDER, UNKNOWN Consulting Unavailable HORN, PATRICK DPM Attending Unavailable HORN, PATRICK DPM Primary Care Unavailable HORN, PATRICK DPM Admitting Unavailable TURNER, ZACH A Consulting Unavailable PROVIDER, UNKNOWN Consulting Unavailable ZACH TURNER A Primary Care Unavailable Zach Turner MD A Primary Care Provider ZACH TURNER Primary Care Unavailable COCO SHAH JR, JR Attending Unavaila ble ZACH TURNER A Primary Care Unavailable SELF, SELF Referring Unavailable SELF, SELF Referring Unavailable COCO SHAH JR, JR Attending Unavaila ZACH Vasquez A Primary Care Unavailable COCO SHAH JR, JR Attending Unavaila ble ACACIA ZACH A Primary Care Unavailable SELF, SELF Referring Unavailable ACACIA ZACH A Primary Care Unavailable Allergies Allergy Classification Reported Allergen(s) Allergy Type Date of Onset Reaction(s) Facility Cephalosporins (antibiotic) (1 source) Cephalexin Drug Allergy 06-01-20 [facility] Dihydrofolate Reductase Inhibitors (antibiotic) (1 source) Trimethoprim Drug Allergy 06-01-20 [facility] Penicillins (antibiotic) (1 source) Penicillins Drug Allergy [facility] Sulfonamides (antibiotic) (1 source) Sulfamethoxazole Drug Allergy 06-01-20 19 [facility] (2 sources) penicillin Drug Allergy 03-10-20 11 [facility] Work Phone: (11 sources) Penicillins Propensity to adverse reactions to drug [facility] Work Phone: (6 sources) Cephalexin Drug Allergy 06-01-20 19 [facility] (4 sources) Sulfamethoxazole Drug Allergy 06-01-20 19 [facility] (6 sources) Trimethoprim Drug Allergy 06-01-20 19 [facility] (1 source) levoFLOXacin Drug Allergy [facility] (1 source) Penicillin Drug Allergy [facility] (1 source) Sulfamethoxazole / Trimethoprim Drug Allergy [facility] (2 sources) Penicillins Propensity to adverse reactions to drug [facility] (2 sources) Sulfamethoxazole Propensity to adverse reactions to drug 06-01-20 [facility] Medications Current Medications Medication Drug Class(es) Dates Sig (Normalized) Sig (Original) amLODIPine 2.5 mg oral tablet (4 sources) Dihydropyridine Calcium Channel Justino Start: 07-27-2021 take 1 tablet by mouth once daily amLODIPine 2.5 MG tablet Take 1 tablet by mouth daily. 0 07/27/2021 Active bimatoprost 0.1 mg/ml ophthalmic solution (20 sources) Prostaglandin Analog Start: 10-03-2017 take 1 drop(s) into the eye(s) once daily LUMIGAN 0.01 % SOLN One drop in each eye daily BIMATOPROST [id number] Merrill Coppola NP Completed/Discontinued Medications Medication Drug Class(es) Dates Sig (Normalized) Sig (Original) adalimumab (2 sources) Tumor Necrosis Factor Justino Start: 11-29-2016 HUMIRA 40 MG/0.8ML KIT as directed ADALIMUMAB Winnie Aguirre PA-C azithromycin 250 mg oral tablet (2 sources) Macrolide Antimicrobial Start: 09-22-2018 End: 01-22-2019 take 2 tablets by mouth once daily, then take 1 tablet by mouth azithromycin 250 MG Tab tablet TAKE 2 TABLETS BY MOUTH ON DAY 1; THEN 1 TABLET DAILY ON DAYS 2-5 0 09/22/2018 01/22/2019 Discontinued ciprofloxacin 3 mg/ml / dexamethasone 1 mg/ml otic suspension (2 sources) Corticosteroid, Quinolone Antimicrobial End: 01-22-2019 ciprofloxacin-dex amethasone (CIPRODEX) 0.3-0.1 % Suspension otic suspension Ciprodex 0.3 %-0.1 % ear drops,suspension 0 01/22/2019 Discontinued clindamycin 300 mg oral capsule (4 sources) Lincosamide Antibacterial End: 01-23-2016 take 1 tablet by mouth four times daily CLINDAMYCIN HCL 300 MG CAPS One tablet by mouth four times daily CLINDAMYCIN HCL [id number] Mariah Valdes clobetasol propionate 0.5 mg/ml topical solution (14 sources) Corticosteroid Start: 07-24-2018 End: 10-26-2023 clobetasol 0.05 % Solution escitalopram 10 mg oral tablet (4 sources) Serotonin Reuptake Inhibitor Start: 05-30-2015 End: 08-12-2015 take 1 tablet by mouth once daily ESCITALOPRAM OXALATE 10 MG TABS One tablet by mouth daily ESCITALOPRAM OXALATE [id number] Miguelangel Walton MD ezetimibe 10 mg oral tablet (20 sources) Dietary Cholesterol Absorption Inhibitor Start: 09-22-2018 End: 10-08-2019 ezetimibe 10 MG Tab per tablet Problems Active Problems Problem Classification Problem Date Documented Date Episodic/Chronic Allergic reactions (9 sources) Skin changes due to chronic exposure to non-ionizing radiation; Translations: [Other skin changes due to chronic exposure to nonionizing radiation] Onset: 9 04-18-2017 Chronic Allergic reactions (20 sources) Solar degeneration; Translations: [Contact dermatitis due to solar radiation] Onset: 9 Resolved: 3 04-18-2017 Episodic Cancer of prostate (14 sources) Malignant tumor of prostate; Translations: [Malignant neoplasm of prostate] Onset: 2 04-18-2017 Chronic Cardiac dysrhythmias (20 sources) Ventricular premature beats; Translations: [Supraventricular tachycardia] Onset: 1 03-10-2011 Chronic Diabetes mellitus with complications (14 sources) Neuropathy due to type 2 diabetes mellitus; Translations: [Type 2 diabetes mellitus with diabetic neuropathy, unspecified] Onset: 7 09-25-2018 Chronic Diabetes mellitus without complication (20 sources) Diabetes mellitus; Translations: [Type 2 diabetes mellitus] Onset: 4 07-22-2014 Chronic Disorders of lipid metabolism (16 sources) Hyperlipidemia; Translations: [Hyperlipidemia, unspecified] Onset: 1 03-10-2011 Chronic Esophageal disorders (14 sources) Gastro-esophageal reflux disease without esophagitis; Translations: [Gastroesophageal reflux disease without esophagitis] Onset: 8 09-25-2018 Chronic Essential hypertension (20 sources) Hypertensive disorder; Translations: [Essential hypertension] Onset: 1 03-10-2011 Chronic Genitourinary symptoms and ill-defined conditions (20 sources) Urgent desire to urinate; Translations: [Nocturia] Onset: 2 04-18-2017 Episodic Genitourinary symptoms and ill-defined conditions (4 sources) Other difficulties with micturition; Translations: [Difficulty in urination] Onset: 2 04-18-2017 Glaucoma (14 sources) Glaucoma; Translations: [Unspecified glaucoma] 09-25-2018 Chronic Hyperplasia of prostate (14 sources) Benign prostatic hyperplasia; Translations: [Benign prostatic hyperplasia without lower urinary tract symptoms] Onset: 2 04-18-2017 Chronic Infective arthritis and osteomyelitis (except that caused by tuberculosis or sexually transmitted di (20 sources) Other chronic osteomyelitis, unspecified ankle and foot; Translations: [Other acute osteomyelitis, unspecified ankle and foot] Onset: 5 01-16-2016 Chronic Osteoarthritis (20 sources) Osteoarthritis of knee; Translations: [Primary gonarthrosis, bilateral] Onset: 8 Resolved: 1 04-18-2017 Chronic Other aftercare (20 sources) intermediate methotrexate user; Translations: [Other intermediate manager (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] Onset: 7 08-29-2017 Episodic Other aftercare (18 sources) Drug therapy finding; Translations: [Other detention (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] Onset: 7 Episodic Other aftercare (10 sources) Patient encounter status; Translations: [continuous churn buttermaker (current) use of non-steroidal anti-inflammatories (NSAID)] Onset: 7 Episodic Other aftercare (1 source) Long-term 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; Translations: [Other detention (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] Episodic Other connective tissue disease (8 sources) History of osteomyelitis; Translations: [Personal history of other diseases of the musculoskeletal system and connective tissue] Onset: 1 Episodic Other inflammatory condition of skin (20 sources) Psoriasis; Translations: [Psoriasis, unspecified] Onset: 0 01-24-2016 Chronic Other inflammatory condition of skin (20 sources) Psoriatic arthritis mutilans; 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] Onset: 7 Resolved: 7 04-18-2017 Chronic Other inflammatory condition of skin (20 sources) Arthropathic psoriasis, unspecified; Translations: [Psoriatic arthritis] Onset: 7 04-18-2017 Chronic Other inflammatory condition of skin (20 sources) 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; 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] Onset: 3 09-25-2018 Chronic Other inflammatory condition of skin (2 sources) Psoriasis, unspecified; Translations: [Psoriasis, unspecified] Onset: 8 Chronic Other inflammatory condition of skin (1 source) Pustulosis palmaris et plantaris; 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] Onset: 8 Chronic Other inflammatory condition of skin (20 sources) Seborrheic dermatitis; Translations: [Seborrheic dermatitis, unspecified] Onset: 2 04-18-2017 Episodic Other inflammatory condition of skin (2 sources) Seborrheic dermatitis, unspecified; Translations: [Seborrheic dermatitis, unspecified] Onset: 7 Episodic Other non-epithelial cancer of skin (20 sources) History of malignant neoplasm of skin; Translations: [Personal history of other malignant neoplasm of skin] Onset: 9 04-18-2017 Episodic Other nutritional; endocrine; and metabolic disorders (20 sources) Body mass index 30+ - obesity; Translations: [Body mass index (BMI) 31.0-31.9, adult] Onset: 4 09-25-2018 Chronic Other skin disorders (17 sources) Actinic keratosis; Translations: [Actinic keratosis] Onset: 9 08-29-2017 Episodic Other skin disorders (19 sources) Asteatosis cutis; Translations: [Xerosis cutis] Onset: 0 04-18-2017 Episodic Other skin disorders (2 sources) Xerosis cutis; Translations: [Xerosis cutis] Onset: 7 Episodic Peripheral and visceral atherosclerosis (15 sources) Intermittent claudication; Translations: [Peripheral vascular disease, unspecified] Onset: 8 05-22-2018 Chronic Pulmonary heart disease (20 sources) Secondary pulmonary hypertension; Translations: [Other secondary pulmonary hypertension] Onset: 5 07-31-2015 Chronic Skin and subcutaneous tissue infections (5 sources) Cellulitis of toe of right foot; Translations: [Cellulitis of right toe] Onset: 5 09-25-2018 Spondylosis; intervertebral disc disorders; other back problems (20 sources) Cervical disc disorder; Translations: [Cervical disc disorder, unspecified, unspecified cervical region] Onset: 8 09-25-2018 Chronic Unclassified (20 sources) Sleep apnea; Translations: [Body mass index (BMI) 32.0-32.9, adult] Onset: 1 Resolved: 4 03-10-2011 Chronic Unclassified (2 sources) Long-term drug therapy; Translations: [Other intermediate manager (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] Onset: 1 03-10-2011 Unclassified (7 sources) Drug indicated; Translations: [Other detention (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] 09-25-2018 Unclassified (13 sources) Patient encounter status; Translations: [Encounter for long-term (current) use of non-steroidal anti-inflammatories] Onset: 7 08-29-2017 Unclassified (13 sources) Drug therapy finding; Translations: [Long-term current use of high risk medication other than anticoagulant] Onset: 7 04-18-2017 Unclassified (6 sources) Long-term current use of drug therapy; Translations: [Other intermediate manager (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] 09-25-2018 Unclassified (2 sources) Long-term 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; Translations: [continuous churn buttermaker 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] Unclassified (1 source) continuous churn buttermaker (current) use of antimetabolite agent; Translations: [intermediate (current) use of antimetabolite agent] Onset: 7 Unclassified (1 source) intermediate (current) use of immunosuppressive biologic; Translations: [continuous churn buttermaker (current) use of immunosuppressive biologic] Onset: 3 Past or Other Problems Problem Classification Problem Date Documented Da te Episodic/Chronic Bacterial infection (16 sources) Methicillin susceptible Staphylococcus aureus infection, unspecified site; Translations: [Infection by methicillin sensitive Staphylococcus aureus] Onset: 5 08-14-2015 Episodic Deficiency and other anemia (20 sources) Anemia; Translations: [Anemia, unspecified] Onset: 8 Resolved: 9 08-29-2017 Episodic Deficiency and other anemia (4 sources) Normocytic normochromic anemia; Translations: [Anemia, unspecified] Onset: 8 Resolved: 2 05-19-2022 Episodic Neoplasms of unspecified nature or uncertain behavior (14 sources) Neoplasm of uncertain behavior of skin; Translations: [Neoplasm of uncertain behavior of skin] Onset: 2 08-29-2017 Episodic Open wounds of extremities (20 sources) Open wound of foot except toes with complication; Translations: [Unspecified open wound, unspecified foot, initial encounter] Onset: 5 08-14-2015 Episodic Other aftercare (11 sources) Long-term current use of drug therapy; Translations: [Other detention (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] Onset: 3 Episodic Other aftercare (7 sources) Long-term current use of antibiotic; Translations: [continuous churn buttermaker (current) use of antibiotics] Onset: 1 Resolved: 2 Episodic Other aftercare (3 sources) Drug indicated; Translations: [Infliximab (Remicade) long-term use] Onset: 3 07-04-2023 Episodic Other aftercare (2 sources) continuous churn buttermaker (current) use of non-steroidal anti-inflammatories (NSAID); Translations: [intermediate (current) use of non-steroidal anti-inflammatories (nsaid)] Onset: 7 Episodic Other aftercare (1 source) Other detention (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; Translations: [Other intermediate manager (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] Onset: 2 Episodic Other connective tissue disease (2 sources) Personal history of other diseases of the musculoskeletal system and connective tissue; Translations: [Personal history of other diseases of the musculoskeletal system and connective tissue] Onset: 1 Episodic Other gastrointestinal disorders (12 sources) Alteration in bowel elimination; Translations: [Change in bowel habit] Onset: 2 04-18-2017 Episodic Other gastrointestinal disorders (2 sources) Altered bowel function; Translations: [Change in bowel habit] Onset: 2 04-18-2017 Episodic Other screening for suspected conditions (not mental disorders or infectious disease) (20 sources) Renal function tests abnormal; Translations: [Abnormal results of kidney function studies] Onset: 7 Resolved: 3 01-18-2018 Episodic Other skin disorders (9 sources) Senile hyperkeratosis; Translations: [Seborrheic keratosis] Onset: 9 04-18-2017 Episodic Other skin disorders (14 sources) Fissure in skin; Translations: [Changes in skin texture] Onset: 2 04-18-2017 Episodic Other skin disorders (14 sources) Hypertrophic scar; Translations: [Hypertrophic scar] Onset: 2 04-18-2017 Episodic Other skin disorders (14 sources) Senile lentigo; Translations: [Other melanin hyperpigmentation] Onset: 0 04-18-2017 Episodic Other skin disorders (14 sources) Scar conditions and fibrosis of skin; Translations: [Scar conditions and fibrosis of skin] Onset: 9 04-18-2017 Episodic Other skin disorders (14 sources) Changes in skin texture; Translations: [Changes in skin texture] Onset: 3 04-18-2017 Episodic Other skin disorders (7 sources) Vesicular eczema of hands and/or feet; Translations: [Vesicular palmoplantar eczema] Onset: 2 04-18-2017 Episodic Other skin disorders (7 sources) Other seborrheic keratosis; Translations: [Seborrheic keratosis] Onset: 9 04-18-2017 Episodic Other skin disorders (6 sources) Vesicular eczema; Translations: [Dyshidrosis [pompholyx]] Onset: 2 04-18-2017 Episodic Other skin disorders (1 source) Actinic keratosis; Translations: [Actinic keratosis] Onset: 7 Episodic Skin and subcutaneous tissue infections (20 sources) Cellulitis of right toe; Translations: [Cellulitis] Onset: 5 08-14-2015 Episodic Unclassified (1 source) intermediate (current) use of antimetabolite agent; Translations: [intermediate (current) use of antimetabolite agent] Onset: 3 Unclassified (1 source) intermediate (current) use of immunosuppressive biologic; Translations: [continuous churn buttermaker (current) use of immunosuppressive biologic] Onset: 3 Results Test Name Value Interpretation Reference Range Facil ity Vital Signs Date Time Vital Sign Value Performing Clinician Laura harmon 10-26-2023 14:38-0500 Body height 182.9 cm Coco Shah Jr., DO Work Phone: [facility] 10-26-2023 14:38-0500 Body mass index (BMI) [Ratio] 30.53 kg/m2 Coco Shah Jr., DO Work Phone: [facility] 10-26-2023 14:38-0500 Body temperature 98.71 [degF] Coco Shah Jr., DO Work Phone: [facility] 10-26-2023 14:38-0500 Body weight 102.1 kg Coco Shah Jr., DO Work Phone: [facility] 10-26-2023 14:38-0500 Diastolic blood pressure 78 mm[Hg] Coco Shah Jr., DO Work Phone: [facility] 10-26-2023 14:38-0500 Systolic blood pressure 118 mm[Hg] Coco Shah Jr., DO Work Phone: [facility] 07-04-2023 12:52-0400 Body height 182.9 cm Coco Ashishhenrrynancy ., DO Work Phone: [facility] 07-04-2023 12:52-0400 Body mass index (BMI) [Ratio] 30.53 kg/m2 Coco Ashishhenrrynancy Jr., DO Work Phone: [facility] 07-04-2023 12:52-0400 Body temperature 97.81 [degF] Coco Shah Jr., DO Work Phone: [facility] 07-04-2023 12:52-0400 Body weight 102.1 kg Coco Shah Jr., DO Work Phone: 6(148)955-408046 [place] [address] 07-04-2023 12:52-0400 Diastolic blood pressure 84 mm[Hg] Coco Shah Jr., DO Work Phone: 4(419)785-650646 [place] [address] 07-04-2023 12:52-0400 Systolic blood pressure 118 mm[Hg] Coco Ashishfabienne Sánchez., DO Work Phone: 3(265)872-245946 [place] [address] 09-20-2022 13:00-0500 Body height 182.9 cm Coco Shah Jr., DO Work Phone: 8(610)262-410646 [place] [address] 09-20-2022 13:00-0500 Body mass index (BMI) [Ratio] 30.52 kg/m2 Coco Shah Jr., DO Work Phone: [facility] 09-20-2022 13:00-0500 Body temperature 98.01 [degF] Coco Shah Jr., DO Work Phone: 9(318)330-693446 [place] [address] 09-20-2022 13:00-0500 Body weight 102.06 kg Coco Shah Jr., DO Work Phone: 3(599)223-120846 [place] [address] 09-20-2022 13:00-0500 Diastolic blood pressure 78 mm[Hg] Coco Ashishfabienne Keerthi, DO Work Phone: 7(278)701-527546 [place] [address] 09-20-2022 13:00-0500 Heart rate 70 /min Coco Hinojosahenrrynancy Wilson, DO Work Phone: 8(948)076-442646 [place] [address] 09-20-2022 13:00-0500 SaO2% (BldA) [Mass fraction] 97 % Coco Ashishhenrrynancy SánchezKeerthi, DO Work Phone: 0(654)379-264446 [place] [address] 09-20-2022 13:00-0500 Systolic blood pressure 134 mm[Hg] Coco Shah Jr., DO Work Phone: 6(553)858-879746 [place] [address] 05-19-2022 12:29-0400 Body height 182.9 cm Coco Shah Keerthi, DO Work Phone: 6(371)081-708087 [place] [address] 05-19-2022 12:29-0400 Body mass index (BMI) [Ratio] 29.57 kg/m2 Coco Ashishhenrrynancy SánchezKeerthi, DO Work Phone: 0(290)790-989546 [place] [address] 05-19-2022 12:29-0400 Body weight 98.88 kg Coco Hinojosahenrrynancy SánchezKeerthi, DO Work Phone: [facility] 05-19-2022 12:29-0400 Diastolic blood pressure 82 mm[Hg] Coco Shah Jr., DO Work Phone: 1(510)812-868246 [place] [address] 05-19-2022 12:29-0400 Heart rate 65 /min Coco Ashishhenrrynancy SánchezKeerthi, DO Work Phone: [facility] 05-19-2022 12:29-0400 SaO2% (BldA) [Mass fraction] 99 % Coco Shah Keerthi, DO Work Phone: [facility] 05-19-2022 12:29-0400 Systolic blood pressure 128 mm[Hg] Coco Shah Jr., DO Work Phone: [facility] 03-23-2021 11:26-0400 Body height 182.9 cm Coco Shah Jr., DO Work Phone: 4(827)105-541046 [place] [address] 03-23-2021 11:26-0400 Body mass index (BMI) [Ratio] 31.87 kg/m2 Coco Shah Jr., DO Work Phone: 0(365)842-841246 [place] [address] 03-23-2021 11:26-0400 Body temperature 98.4 [degF] Coco Shah Jr., DO Work Phone: 3(531)974-267093 [address] 03-23-2021 11:26-0400 Body weight 106.59 kg Coco Shah Jr., DO Work Phone: 7(812)333-743787 [place] [address] 03-23-2021 11:26-0400 Diastolic blood pressure 72 mm[Hg] Coco Shah Jr., DO Work Phone: 4(996)097-032687 [place] [address] 03-23-2021 11:26-0400 Heart rate 73 /min Coco Shah Jr., DO Work Phone: 5(098)326-786387 [place] [address] 03-23-2021 11:26-0400 SaO2% (BldA) [Mass fraction] 96 % Coco Shah Jr., DO Work Phone: [facility] 03-23-2021 11:26-0400 Systolic blood pressure 128 mm[Hg] Coco Shah Jr., DO Work Phone: [facility] 09-22-2020 11:26-0500 BMI (Body Mass Index) 32.14 kg/m2 Coco Shah [facility] 09-22-2020 11:26-0500 Body Temperature 97.11 [degF] [facility] 09-22-2020 11:26-0500 Body weight 107.5 kg [facility] 09-22-2020 11:26-0500 BP Diastolic 82 mm[Hg] [facility] 09-22-2020 11:26-0500 BP Systolic 122 mm[Hg] [facility] 09-22-2020 11:26-0500 Height 182.9 cm [facility] 09-22-2020 11:26-0500 Pulse (Heart Rate) 64 /min [facility] 09-22-2020 11:26-0500 Pulse Oximetry 99 % [facility] 05-14-2020 10:54-0400 BMI (Body Mass Index) 30.79 kg/m2 [facility] 05-14-2020 10:54-0400 Body Temperature 98.29 [degF] [facility] 05-14-2020 10:54-0400 Body weight 102.97 kg [facility] 05-14-2020 10:54-0400 BP Diastolic 72 mm[Hg] [facility] 05-14-2020 10:54-0400 BP Systolic 130 mm[Hg] [facility] 05-14-2020 10:54-0400 Height 182.9 cm [facility] 05-14-2020 10:54-0400 Pulse (Heart Rate) 69 /min [facility] 05-14-2020 10:54-0400 Pulse Oximetry 97 % [facility] 10-08-2019 10:26-0500 BMI (Body Mass Index) 30.65 kg/m2 [facility] 10-08-2019 10:26-0500 Body Temperature 97 [degF] [facility] 10-08-2019 10:26-0500 Body weight 102.51 kg [facility] 10-08-2019 10:26-0500 BP Diastolic 74 mm[Hg] [facility] 10-08-2019 10:26-0500 BP Systolic 128 mm[Hg] [facility] 10-08-2019 10:26-0500 Height 182.9 cm [facility] 10-08-2019 10:26-0500 Pulse (Heart Rate) 68 /min [facility] 10-08-2019 10:26-0500 Pulse Oximetry 97 % [facility] 01-22-2019 07:43-0400 BMI (Body Mass Index) 32.4 kg/m2 [facility]note 3][facility] 01-22-2019 07:43-0400 Body Temperature 96.21 [degF] [facility] 01-22-2019 07:43-0400 Body weight 108.36 kg [facility] 01-22-2019 07:43-0400 BP Diastolic 78 mm[Hg] [facility] 01-22-2019 07:43-0400 BP Systolic 140 mm[Hg] [facility] 01-22-2019 07:43-0400 Height 182.9 cm [facility] 01-22-2019 07:43-0400 Pulse (Heart Rate) 51 /min [facility] 01-22-2019 07:43-0400 Pulse Oximetry 97 % [facility] 10-03-2017 08:10-0500 BMI (Body Mass Index) 31.87 kg/m2 MD Alexandra Armstrong [facility] Work Phone: 10-03-2017 08:10-0500 BP Diastolic 80 mm[Hg] MD [facility] Work Phone: 10-03-2017 08:10-0500 BP Systolic 140 mm[Hg] MD [facility] Work Phone: 10-03-2017 08:10-0500 Height 182.88 cm Larry Williamson MD [facility] Work Phone: 10-03-2017 08:10-0500 Pulse (Heart Rate) 60 /min MD [facility] Work Phone: 10-03-2017 08:10-0500 Respiratory Rate 18 /min MD [facility] Work Phone: 10-03-2017 08:10-0500 Weight 106.6 kg MD [facility] Work Phone: 05-09-2017 13:20-0400 Body Temperature 98 [degF] MD [facility] Work Phone: 11-29-2016 11:54-0500 BSA (Body Surface Area) 2.3 m2 MD [facility] Work Phone: 11-16-2016 10:34-0500 Body Temperature 97.16 [degF] MD [facility] Work Phone: 11-16-2016 10:34-0500 Height 182.88 cm MD [facility] Work Phone: 11-16-2016 10:34-0500 Weight 108.64 kg MD [facility] Work Phone: Encounters Encounter Date Encounter Type Care Provider Facility Start: 05-07-2024 ambulatory [facility] Start: 10-26-2023 ambulatory [facility] Start: 10-26-2023 End: 10-26-2023 Office outpatient visit 25 minutes Coco Shah DO Work Phone: [facility] Rheumatology Procedures Date Procedure Procedure Detail Performing Clinician Start: 12-02-2018 LABS (OUTSIDE) Coco Shah Work Phone: Start: 10-03-2017 End: 10-11-2017 Echo tthrc r-t 2d w/wom-mode compl spec&colr d Tomasa Russell TOP TILE DECORATOR Work Phone: Start: 10-03-2017 End: 10-03-2017 Follow Up Appt 6 months Merrill Coppola HELP DESK MANAGER Work Phone: Start: 10-03-2017 End: 10-03-2017 PFM Merrill Coppola HELP DESK MANAGER Work Phone: Start: 05-09-2017 End: 10-11-2017 BWLivia Christian HELP DESK MANAGER Work Phone: Start: 05-09-2017 End: 10-11-2017 Follow Up Appt 6 months Tomasa guzman TOP TILE DECORATOR Work Phone: Start: 11-29-2016 End: 11-29-2016 Follow Up Appt 6 months Winnie treviño PA-C Work Phone: Start: 11-29-2016 End: 11-29-2016 PFM Winnie Aguirre PA-C Work Phone: Start: 05-31-2016 End: 05-31-2016 Follow Up Appt 6 months Miguelangel Walton MD Start: 05-31-2016 End: 05-31-2016 MMM Miguelangel Walton MD Start: 04-06-2016 End: 04-08-2016 *MRSAW, Staph A, DNA, Amp Probe, Wound Alyx Blue MD Start: 01-23-2016 End: 01-24-2016 Erythrocyte sedimentation rate Alyx Blue MD Start: 01-23-2016 End: 01-24-2016 Hemoglobin A1c/Hemoglobin.total in Blood Alyx Blue MD Start: 01-23-2016 End: 04-06-2016 Radex foot complete minimum 3 views Alyx Blue MD Start: 11-17-2015 End: 11-20-2015 *Hepatic Function Panel Winnie treviño PA-C Work Phone: Start: 11-17-2015 End: 11-17-2015 Ecg routine ecg w/least 12 lds w/i&r Winnie Aguirre PA-C Work Phone: Start: 11-17-2015 End: 11-17-2015 Follow Up Appt 6 months Winnie treviño PA-C Work Phone: Start: 11-17-2015 End: 11-20-2015 Lipid 1996 panel - Serum or Plasma Winnie Aguirre PA-C Work Phone: Start: 11-17-2015 End: 11-17-2015 PFM Winnie Aguirre PA-C Work Phone: Start: 09-22-2015 End: 09-22-2015 Documentation of current medications Alyx Blue MD Start: 09-22-2015 End: 11-20-2015 Erythrocyte sedimentation rate Alyx Blue MD Start: 09-22-2015 End: 10-17-2015 Radex foot complete minimum 3 views Alyx Blue MD Start: 09-22-2015 End: 09-22-2015 Smoking cessation education Alyx vazquez MD Start: 08-25-2015 End: 08-25-2015 *CBC with Differential Alyx Blue MD Start: 08-25-2015 End: 08-25-2015 *Renal Panel Alyx Blue MD Start: 08-25-2015 End: 08-26-2015 Documentation of current medications Alyx Blue MD Start: 08-25-2015 End: 08-25-2015 Erythrocyte sedimentation rate Alyx Blue MD Start: 08-14-2015 End: 08-25-2015 Bacteria identified in Wound by Culture Alyx Blue MD Start: 08-14-2015 End: 08-15-2015 Documentation of current medications Alyx Blue MD Start: 07-31-2015 End: 07-31-2015 Documentation of current medications Clint Carpenter Work Phone: Start: 05-30-2015 End: 05-31-2015 Documentation of current medications Miguelangel Walton MD Start: 05-30-2015 End: 11-17-2015 Follow Up Appt 6 months Miguelangel Walton MD Start: 05-30-2015 End: 11-17-2015 MMM Miguelangel Walton MD Start: 07-22-2014 End: 07-22-2014 Follow Up Appt 6 months Winnie treviño PA-C Work Phone: Start: 07-22-2014 End: 07-22-2014 PFM Winnie Aguirre PA-C Work Phone: Start: 01-14-2014 End: 01-14-2014 Follow Up Appt 6 months Miguelangel Walton MD Start: 01-14-2014 End: 01-14-2014 MMM Miguelangel Walton MD Start: 12-14-2013 End: 11-17-2015 *Hepatic Function Panel Winnie treviño PA-C Work Phone: Start: 12-14-2013 End: 11-17-2015 Lipid 1996 panel - Serum or Plasma Winnie Aguirre PA-C Work Phone: Start: 06-11-2013 End: 01-14-2014 Ecg routine ecg w/least 12 lds w/i&r Winnie Aguirre PA-C Work Phone: Start: 06-11-2013 End: 01-14-2014 Follow Up Appt 6 months Winnie treviño PA-C Work Phone: Start: 06-11-2013 End: 01-14-2014 PF Winnie Aguirre PA-C Work Phone: Start: 11-24-2012 End: 05-15-2013 Follow Up Appt 6 months Miguelangel Walton MD Start: 01-17-2012 End: 05-15-2013 *Hepatic Function Panel Miguelangel Walton MD Start: 01-17-2012 End: 01-17-2012 Ecg routine ecg w/least 12 lds w/i&r Miguelangel Walton MD Start: 01-17-2012 End: 01-17-2012 Follow Up Appt 6 months Miguelangel Walton MD Start: 01-17-2012 End: 05-15-2013 Lipid 1996 panel - Serum or Plasma Miguelangel Walton MD Plan of Treatment Date Care Activity Detail Author Start: 12-30-2024 Tetanus vaccination TETANUS [facility] Start: 05-07-2024 End: 05-07-2024 Patient encounter procedure 05/07/2024 12:00 PM EDT Office Visit [facility] [address] [place] [address], [place] [phone] Coco Shah Jr., DO [address] [facility] [address] [facility] Start: 10-26-2023 End: 10-26-2023 Patient encounter procedure 10/26/2023 2:30 PM EST Office Visit [facility] [address] [place] [address], [place] [address] Coco Shah Jr., DO [address] [facility] [address] [facility] Start: 07-15-2023 COVID-19 VACCINE ( season) COVID-19 VACCINE ( season) [facility] Start: 07-15-2023 Influenza vaccination INFLUENZA VACCINE (#1) [facility] Start: 03-28-2023 End: 03-28-2023 Patient encounter procedure 03/28/2023 Office Visit Rheumatology Coco Shah Jr., DO [address] [facility] [address] [facility] Start: 03-01-2023 Colonoscopy COLORECTAL CANCER SCREENING DISCUSSION [facility] Start: 03-01-2023 Screening for malignant neoplasm of colon COLORECTAL CANCER SCREENING DISCUSSION [facility] Start: 09-20-2022 End: 09-20-2022 Patient encounter procedure 09/20/2022 Office Visit Rheumatology Coco Shah Jr., DO [address] [facility] [address] [facility] Start: 07-15-2022 Influenza vaccination INFLUENZA VACCINE (#1) [facility] Start: 01-23-2022 COVID-19 VACCINE (4 - Booster for Pfizer series) COVID-19 VACCINE (4 - Booster for Pfizer series) [facility] Start: 11-20-2021 COVID-19 VACCINE (4 - Booster for Pfizer series) COVID-19 VACCINE (4 - Booster for Pfizer series) [facility] Start: 11-20-2021 COVID-19 VACCINE (4 - Pfizer series) COVID-19 VACCINE (4 - Pfizer series) [facility] Start: 07-27-2021 End: 07-27-2021 Patient encounter procedure 07/27/2021 Office Visit Rheumatology Coco Shah Jr., [address] [place] [address] [facility] Start: 07-15-2021 Influenza vaccination INFLUENZA VACCINE (Season Ended) [facility] Start: 03-23-2021 End: 03-23-2021 Office Visit 03/23/2021 Office Visit Rheumatology Coco Shah Jr., [address] [place] [phone] [facility] Start: 09-22-2020 End: 09-22-2020 Office Visit 09/22/2020 Office Visit Rheumatology Coco Shah Jr., [address] [place] [phone] [facility] Start: 07-15-2020 Influenza vaccination INFLUENZA VACCINE (#1) [facility] Start: 02-20-2020 End: 02-20-2020 Office Visit 02/20/2020 Office Visit Rheumatology Coco Shah Jr., DO [address] [place] [address] [facility] Start: 09-25-2019 Potassium molar conc POTASSIUM [facility] Work Phone: Start: 07-23-2019 End: 07-23-2019 Office Visit [facility] Start: 07-15-2019 Influenza vaccination INFLUENZA VACCINE (#1) [facility] Start: 01-22-2019 End: 01-22-2019 Ambulatory 01/22/2019 Office Visit Rheumatology Pablo Wilson, Coco Carter, DO [address] [place] [address] [phone] [facility] Start: 07-15-2018 Influenza vaccination INFLUENZA VACCINE (#1) [facility] Work Phone: Start: 07-03-2018 End: 07-03-2018 Appointment [facility]ointment [facility] Work Phone: Start: 11-02-2017 End: 11-02-2017 Appointment Appointment [facility] Work Phone: Start: 10-03-2017 End: 10-11-2017 Echo tthrc r-t 2d w/wom-mode compl spec&colr d Echo Complete with Color Flow [facility] Work Phone: Start: 10-03-2017 End: 10-03-2017 Follow Up Appt 6 months Follow Up Appt 6 months [facility] Work Phone: Start: 10-03-2017 End: 10-03-2017 PFM PFM [facility] Work Phone: Start: 05-09-2017 End: 10-11-2017 BWA BWA [facility] Work Phone: Start: 05-09-2017 End: 10-11-2017 Follow Up Appt 6 months Follow Up Appt 6 months [facility] Work Phone: Start: 11-29-2016 End: 11-29-2016 Follow Up Appt 6 months Follow Up Appt 6 months [facility] Work Phone: Start: 11-29-2016 End: 11-29-2016 PFM PFM [facility] Work Phone: Start: 11-16-2016 End: 11-16-2016 [facility] Work Phone: Start: 11-16-2016 End: 11-16-2016 Follow Up Appt 6 months Follow Up Appt 6 months [employer] Work Phone: Start: 11-16-2016 End: 11-16-2016 Pulmonary Function Test - complete Pulmonary Function Test - complete [facility] Work Phone: Start: 11-16-2016 End: 11-16-2016 Pulmonary stress test/simple Pulmonary stress testing; simple (eg, 6-minute walk) [facility] Work Phone: Start: 05-31-2016 End: 05-31-2016 Follow Up Appt 6 months Follow Up Appt 6 months [employer] Work Phone: Start: 05-31-2016 End: 05-31-2016 MMM MMM [facility] Work Phone: Start: 05-20-2016 End: 11-21-2015 *Hepatic Function Panel *Hepatic Function Panel [employer] Work Phone: Start: 05-20-2016 End: 11-21-2015 Lipid panel [AGGREGATE] *Lipid Profile CC PCP [facility] Work Phone: Start: 05-19-2016 End: 05-19-2016 Follow Up Appt 6 months Follow Up Appt 6 months [employer] Work Phone: Start: 04-19-2016 End: 04-19-2016 Debridement subcutaneous tissue 20 sq cm/< Debridement, subcutaneous tissue first 20 sq cm or less [facility] Work Phone: Start: 04-09-2016 End: 04-09-2016 Radex foot complete minimum 3 views X-Ray, Foot [facility] Work Phone: Start: 04-06-2016 End: 04-06-2016 *MRSAW, Staph A, DNA, Amp Probe, Wound *MRSAW, Staph A, DNA, Amp Probe, Wound [facility] Work Phone: Start: 01-23-2016 End: 01-24-2016 Erythrocyte sedimentation rate *Sedimentation Rate (ESR) [facility] Work Phone: Start: 01-23-2016 End: 01-24-2016 Hemoglobin A1c/Hemoglobin.total mass fraction (Bld) *HgA1C [facility] Phone: Start: 01-23-2016 End: 04-06-2016 Radex foot complete minimum 3 views X-Ray, Foot [facility] Work Phone: Start: 11-17-2015 End: 11-20-2015 *Hepatic Function Panel *Hepatic Function Panel [employer] [facility] Work Phone: Start: 11-17-2015 End: 11-17-2015 Ecg routine ecg w/least 12 lds w/i&r EKG (In office) [facility] Phone: Start: 11-17-2015 End: 11-17-2015 Follow Up Appt 6 months Follow Up Appt 6 months [facility] Phone: Start: 11-17-2015 End: 11-20-2015 Lipid panel [AGGREGATE] *Lipid Profile CC PCP [facility] Work Phone: Start: 11-17-2015 End: 11-17-2015 PFM PFM [facility] Work Phone: Start: 11-12-2015 End: 11-12-2015 Follow Up Appt 6 months Follow Up Appt 6 months [facility] Phone: Start: 09-22-2015 End: 10-17-2015 Erythrocyte sedimentation rate *Sedimentation Rate (ESR) [facility] Phone: Start: 09-22-2015 End: 10-17-2015 Radex foot complete minimum 3 views X-Ray, Foot [facility] Phone: Start: 08-25-2015 End: 08-25-2015 *CBC with Differential *CBC with Differential [facility] Phone: Start: 08-25-2015 End: 08-25-2015 *Renal Panel *Renal Panel [facility] Phone: Start: 08-25-2015 End: 08-25-2015 Erythrocyte sedimentation rate *Sedimentation Rate (ESR) [facility] Work Phone: Start: 08-14-2015 End: 08-25-2015 Bacterica wound culture *Culture and Sensitivity, wound [facility] Work Phone: Start: 07-31-2015 End: 07-31-2015 Chest x-ray X-Ray, Chest, PA & Lateral [facility] Work Phone: Start: 07-31-2015 End: 07-31-2015 Follow Up Appt 3 months Follow Up Appt 3 months [employer] Work Phone: Start: 07-31-2015 End: 07-31-2015 Pulmonary Function Test - complete Pulmonary Function Test - complete [facility] Work Phone: Start: 07-31-2015 End: 07-31-2015 Pulmonary stress test/simple Pulmonary stress testing; simple (eg, 6-minute walk) [facility] Work Phone: Start: 05-30-2015 End: 11-17-2015 Follow Up Appt 6 months Follow Up Appt 6 months [facility] Work Phone: Start: 05-30-2015 End: 11-17-2015 MMM MMM [facility] Work Phone: Start: 07-22-2014 End: 07-22-2014 Follow Up Appt 6 months Follow Up Appt 6 months [facility] Work Phone: Start: 07-22-2014 End: 07-22-2014 PFM PFM [facility] Work Phone: Start: 01-14-2014 End: 01-14-2014 Follow Up Appt 6 months Follow Up Appt 6 months [facility] Work Phone: Start: 01-14-2014 End: 01-14-2014 MMM MMM [facility] Work Phone: Start: 12-14-2013 End: 11-17-2015 *Hepatic Function Panel *Hepatic Function Panel [facility] Work Phone: Start: 12-14-2013 End: 11-17-2015 Lipid panel [AGGREGATE] *Lipid Profile CC PCP [facility] Work Phone: Start: 06-11-2013 End: 01-14-2014 Ecg routine ecg w/least 12 lds w/i&r EKG (In office) [facility] Work Phone: Start: 06-11-2013 End: 01-14-2014 Follow Up Appt 6 months Follow Up Appt 6 months [facility] Work Phone: Start: 06-11-2013 End: 01-14-2014 PFM PFM [facility] Work Phone: Start: 11-24-2012 End: 05-15-2013 Follow Up Appt 6 months Follow Up Appt 6 months [facility] Work Phone: Start: 01-17-2012 End: 05-15-2013 *Hepatic Function Panel *Hepatic Function Panel [facility] Work Phone: Start: 01-17-2012 End: 01-17-2012 Ecg routine ecg w/least 12 lds w/i&r EKG (In office) [facility] Work Phone: Start: 01-17-2012 End: 01-17-2012 Follow Up Appt 6 months Follow Up Appt 6 months [facility] Work Phone: Start: 01-17-2012 End: 05-15-2013 Lipid panel [AGGREGATE] *Lipid Profile [facility] Work Phone: Start: 01-28-2010 Hepatitis B vaccination HEP B VACCINE (3 of 3 - 19+ 3-dose series) [facility] Start: 2008 Abdominal aortic aneurysm screening ABDOMINAL AORTIC ANEURYSM HIGH RISK SCREEN [facility] Work Phone: Start: 2008 Pneumococcal vaccination PNEUMOCOCCAL VACCINE SERIES (1 of 2 - PCV13) [facility] Work Phone: Start: 1993 Colonoscopy [employer] [facility] Start: 1993 Prostate specific antigen measurement PROSTATE CANCER SCREENING DISCUSSION [facility] Work Phone: Start: 1993 Protein mass conc COLON CANCER SCREENING DISCUSSION [facility] Work Phone: Start: 1993 Zoster vaccine hzv live for subcutaneous use ZOSTER (SHINGLES) VACCINE (1 of 2) [employer] Start: 1983 Fasting lipid profile LIPID SCREENING [facility] Work Phone: Start: 1962 Third diphtheria, tetanus and acellular pertussis (DTaP) vaccination TDAP (ADULT) [facility] Start: 1961 Tetanus vaccination TETANUS [facility] Start: 1959 COVID-19 VACCINE (1) COVID-19 VACCINE (1) [employer] Start: 1949 Pneumococcal vaccination PNEUMOCOCCAL VACCINE SERIES (1 - PCV) [employer] Start: 1943 Hepatitis C antibody, confirmatory test HEPATITIS C VIRUS SCREENING [facility] Start: 1943 Hepatitis C screening HEPATITIS C VIRUS SCREENING [facility] Start: 1943 Potassium [Moles/Vol] POTASSIUM [employer] End: 05-19-2023 Alanine aminotransferase [Enzymatic activity/volume] in Serum or Plasma ALT Lab Routine Psoriatic arthritis Psoriatic arthritis mutilans Unspecified open wound, unspecified foot, initial encounter 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 Photoaged skin CRP elevated History of malignant neoplasm of skin History of osteomyelitis intermediate (current) use of antibiotics Long-term current use of high risk medication other than anticoagulant 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, detention, current use On statin therapy Other detention (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 Personal history of other malignant neoplasm of skin Cervical disc disorder Cervical disc disorder, unspecified, unspecified cervical region Primary osteoarthritis of both knees Seborrheic eczema Eczema, unspecified type Encounter for long-term (current) use of non-steroidal anti-inflammatories intermediate 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 Osteoarthritis of both knees, unspecified osteoarthritis type Every 8 Weeks for 6 Occurrences starting 05/19/2022 until 05/19/2023 [facility] Immunizations Immunization Date Immunization Notes Care Provider July reyna 09-02-2022 influenza virus vaccine, unspecified formulation Coco Hinojosahenrrynancy , DO Work Phone: [facility] 09-17-2021 influenza virus vaccine, unspecified formulation Coco Shah , DO Work Phone: [facility] Payers Date Payer Category Payer Medicare MEDICARE MEDICAR E A AND B xxxxxxxxxxx 2008-Present [place], [place] xxxxxxxxxxx [id number] 2008 Medicare MEDICARE MEDICAR E A AND B [id number] 2008-Present [place], [place] [id number] 2008 Medicare MEDICARE MEDICAR E A AND B [id number] 2008-Present [address] [place] [address] [id number] 2008 Medicare [id number] 2007 Unknown GENERIC EXCHANGE GENERIC EXCHANGE [id number] 2007-Present [id number] 2007 Unknown GENERIC EXCHANGE GENERIC EXCHANGE [id number] 2007-Present [id number] 2007 Unknown GENERIC EXCHANGE GENERIC EXCHANGE [id number] 2007-[place] [address] [id number] 2007 Unknown [id number] 1943 Unknown [id number] 1943 Unknown [id number] 1943 Unknown [id number] 1943 Unknown [id number] 1943 Unknown [id number] 1943 Unknown [id number] 1943 Unknown [id number] 1943 Unknown [id number] Social History Date Type Detail Facility Start: 09-25-2018 End: 09-20-2022 Tobacco smoking status NHIS Former smoker [facility] Start: 1945 Sex Assigned At Not on file [facility] Work Phone: Start: 10-08-2019 End: 10-26-2023 Alcohol intake Current non-drinker of alcohol (finding) [facility] Start: 09-22-2020 End: 09-20-2022 Tobacco use and exposure Never used [facility] History of tobacco use Current smoker [facility] Start: 09-20-2022 End: 07-04-2023 History of Social function [facility] Start: 09-20-2022 End: 07-04-2023 Tobacco use panel [facility] Gender identity Identifies as ma le gender (finding) [facility] Clinical Notes 03-23-2021 to 10-26-2023 Coco Shah Jr., DO - 10/26/2023 2:30 PM Lex Shah Jr., DO - 07/04/2023 1:00 PM EDTDaisaiah Shah Jr., DO - 09/20/2022 1:00 PM EST Note Date & Type Note Facility 10-26-2023 History of Present illness Narrative Images from the original note were not included. Subjective History of Present Illness Patient started Humira 08/09/16. Humira was helping and not bothering him. Patient lost financial assistance and is now 2 expensive. Patient started Generic remicade in 03/2018. Remicade has been helping and not bothering him. Renflexis is 8 mg/kg every 6 weeks. Presence of Pain: complains of pain/discomfort Select Pain Scale: DVPRS (Defense and Veterans Pain Rating Scale) (Adult-Cognitively Intact) DVPRS: Rest: 4- mild pain Select Pain Scale: DVPRS (Defense and Veterans Pain Rating Scale) (Adult-Cognitively Intact). Total time spent in this encounter was 30 minutes. Psoriasis/Rash is the same he would say. Claudication continues. Prostate unchanged. Glaucoma better after surgery. Joint pain is knees. Patient is here for 4 month Follow-up. Patient states he is doing ok. States he is having some knee pain. I have been told that patient is on a high risk medication as it either treats cancer or requires blood work every 2-3 months. Prednisone 2 times since last seen for joint pain and skin rash. Last took prednisone 3 weeks ago. I have been told that prednisone is a high risk medication. Objective Review of Systems Review of Systems Constitutional: Negative. Skin: Psoriasis HENT: Negative. Eyes: Glaucoma/Cataract S/P surgery Cardiovascular: Positive for claudication. Respiratory: Negative. Gastrointestinal: Negative. Breast: Negative. Genitourinary: Positive for hesitancy. BPH Prostate cancer Nocturia times one. Musculoskeletal: Positive for joint pain. Neurological: Negative. Psychiatric: Negative. Allergy/Immunology: Negative. Lymph/Heme: Negative. Endocrine: Negative. Physical Exam Blood pressure 118/78, temperature 98.7 F (37.1 C), temperature source Temporal, height 1.829 m (6'), weight 102.1 kg (225 lb 1.4 oz). Physical Exam Vitals and nursing note reviewed. Constitutional: Appearance: Normal appearance. HENT: Head: Normocephalic and atraumatic. 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 Left Ear: External ear normal. Nose: Nose normal. Mouth/Throat: Mouth: Mucous membranes are moist. Pharynx: Oropharynx is clear. Eyes: Extraocular Movements: Extraocular movements intact and EOM normal. Conjunctiva/sclera: Conjunctivae normal. Pupils: Pupils are equal, round, and reactive to light. Cardiovascular: Rate and Rhythm: Normal rate and regular rhythm. Pulses: Radial pulses are 2+ on the right side and 2+ on the left side. Heart sounds: Normal heart sounds. Pulmonary: Effort: Pulmonary effort is normal. Breath sounds: Normal breath sounds. Abdominal: General: Bowel sounds are normal. Palpations: Abdomen is soft. Comments: obese Musculoskeletal: Right shoulder: Normal. Left shoulder: Normal. Right upper arm: Normal. Left upper arm: Normal. Right elbow: Normal. Left elbow: Normal. Right forearm: Normal. Left forearm: Normal. Right wrist: Crepitus present. Decreased range of motion. Left wrist: Crepitus present. Decreased range of motion. Right hand: Decreased range of motion. Left hand: Decreased range of motion. Cervical back: Neck supple. Right upper leg: Normal. Left upper leg: Normal. Right knee: Crepitus present. Decreased range of motion. Tenderness present. Left knee: Crepitus present. Decreased range of motion. Tenderness present. Right lower le+ Edema present. Left lower le+ Edema present. Right ankle: Decreased range of motion. Left ankle: Decreased range of motion. Legs: Skin: General: Skin is warm and dry. Findings: Bruising present. Comments: Psoriasis a little in scalp -imporved Also now arms. - improved Ecchymosis dorsum R hand Neurological: Mental Status: He is alert and oriented to person, place, and time. Cranial Nerves: Cranial nerves 2-12 are intact. Sensory: Sensation is intact. Motor: Motor strength is normal.Motor function is intact. Psychiatric: Mood and Affect: Mood and affect normal. Behavior: Behavior normal. Thought Content: Thought content normal. Cognition and Memory: Memory normal. Judgment: Judgment normal. Neurological Exam Mental Status Alert. Oriented to person, place, and time. Memory is normal. Cranial Nerves CN III, IV, : Extraocular movements intact bilaterally. Extraocular movements intact bilaterally. Pupils equal round and reactive to light bilaterally. Motor Strength is 5/5 throughout all four extremities. Sensory Normal sensation. 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 Primary osteoarthritis of both knees Cervical disc disorder, unspecified, unspecified cervical region Cervical disc disorder Pustulosis palmaris et plantaris Psoriasis Seborrheic eczema Photoaged skin Other skin changes due to chronic exposure to nonionizing radiation Eczema, unspecified type Asteatosis cutis Actinic keratosis Personal history of other malignant neoplasm of skin Other intermediate manager (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 On statin therapy Nocturia 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, intermediate manager, current use Long-term current use of high risk medication other than anticoagulant History of osteomyelitis History of malignant neoplasm of skin Encounter for long-term (current) use of non-steroidal anti-inflammatories 1. Patient stopped Humira as no longer is getting assistance 2. Time was spent with the patient today in education in re: to all their medical conditions. A complete H&P&ROS was obtained and is either in this note or in the EHR. Please do not hesitate to contact me with any questions or concerns re: this patient. 3. Thank you for allowing me to participate in the care of your patient. With your permission I would like to F/U with your patient. 4. CRP was negative at < 2.9 and still is at < 2.9 5. 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 (M T X):Hold MTX week before, week during and, week after any surgery. Hold MTX any time have an infection can restart once off of ATB and/or antiviral and free of infection. Hold MTX week before, week during and, week after any live attenuated vaccine (shingles). Monitor CBC/LFT/Renal func every 2-3 months on MTX. hold MTX anytime there is an open wound and can restart once wound has healed 6. Hold Remicade month before and month after any surgery. Hold Remicade anytime have an infection can restart once off of ATB and/or antiviral and free of infection. Hold Remicade month before and month after live attenuated vaccines (shingles). Hold Remicade is open wound and can restart once wound has healed. 7. ESR was normal at 10 and still is at 10 8. Inflectra to 8 mg / kg IV every 6 weeks 9. Lab on or about 11/22/2023 and every 3 months thereafter 10. Patient is taking Vit D3 11. Patient told he could take OTC Tylenol 12. Monitor CBC/LFT/Renal func every 6-12 months as long as patient is on daily NSAID 13. . L ankle surgery by podiatry 09/26/[address] Johnson for posterior tibial tendon tear - podiatry. S/P L midfoot amputation for infection. 14. Uric acid was normal at 5.9 15. FORCE DISPATCHER was elevated at 1.55 with GFR of 46 and is now normal at 1.23 with GFR of 60 16. Derm F/U per Dr. Joe malloy 17. Stop Aleve 18. Optho F/U per Dr. Chan. 19. 90 day supply on medications 20. Rx given for Sulindac 200 mg 1 or 2 pills a day 21. Follow-up with me in 6 months 22. Rx given for Prednisone 5 mg 8 pills one day decrease by 1 pill a day until of to be used as needed 23. continuous churn buttermaker side effects of prednisone gone over with the patient 24. Rx given for 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 3 pills one day a week documented in this encounter [facility] 07-04-2023 History of Present illness Narrative Images from the original note were not included. History of Present Illness Patient started Humira 08/09/16. Humira was helping and not bothering him. Patient lost financial assistance and is now 2 expensive. Patient started Generic remicade in 03/2018. Remicade has been helping and not bothering him. Renflexis is 8 mg/kg every 6 weeks. Presence of Pain: denies pain/discomfort. Total time spent in this encounter was 22 minutes. Psoriasis/Rash is not sure. Claudication continues. Prostate is doing all right. Joint pain is knees. Mild though. Patient is here for 6 month F/U. Patient states that he is doing pretty good. I have been told that patient is on a high risk medication as it either treats cancer or requires blood work every 2-3 months. Prednisone one time since last seen. For skin rash. Review of Systems Review of Systems Constitutional: Negative. Skin: Psoriasis HENT: Negative. Eyes: Glaucoma/Cataract S/P surgery Cardiovascular: Positive for claudication. Respiratory: Negative. Gastrointestinal: Negative. Breast: Negative. Genitourinary: BPH Musculoskeletal: Positive for joint pain. Neurological: Negative. Psychiatric: Negative. Allergy/Immunology: Negative. Lymph/Heme: Negative. Endocrine: Negative. Physical Exam Blood pressure 118/84, temperature 97.8 F (36.6 C), temperature source Temporal, height 1.829 m (6'), weight 102.1 kg (225 lb 1.4 oz). Physical Exam Vitals and nursing note reviewed. Constitutional: Appearance: Normal appearance. HENT: Head: Normocephalic and atraumatic. 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 Left Ear: External ear normal. Nose: Nose normal. Mouth/Throat: Mouth: Mucous membranes are moist. Pharynx: Oropharynx is clear. Eyes: Extraocular Movements: Extraocular movements intact and EOM normal. Conjunctiva/sclera: Conjunctivae normal. Pupils: Pupils are equal, round, and reactive to light. Cardiovascular: Rate and Rhythm: Normal rate and regular rhythm. Pulses: Radial pulses are 2+ on the right side and 2+ on the left side. Heart sounds: Normal heart sounds. Pulmonary: Effort: Pulmonary effort is normal. Breath sounds: Normal breath sounds. Abdominal: General: Bowel sounds are normal. Palpations: Abdomen is soft. Comments: obese Musculoskeletal: Right shoulder: Normal. Left shoulder: Normal. Right upper arm: Normal. Left upper arm: Normal. Right elbow: Normal. Left elbow: Normal. Right forearm: Normal. Left forearm: Normal. Right wrist: Crepitus present. Decreased range of motion. Left wrist: Crepitus present. Decreased range of motion. Right hand: Decreased range of motion. Left hand: Decreased range of motion. Cervical back: Neck supple. Right upper leg: Normal. Left upper leg: Normal. Right knee: Decreased range of motion. Left knee: Decreased range of motion. Right lower le+ Edema present. Left lower le+ Edema present. Right ankle: Decreased range of motion. Left ankle: Decreased range of motion. Legs: Skin: General: Skin is warm and dry. Comments: Psoriasis a little in scalp -imporved Also now arms. - improved Neurological: Mental Status: He is alert and oriented to person, place, and time. Cranial Nerves: Cranial nerves 2-12 are intact. Sensory: Sensation is intact. Motor: Motor strength is normal.Motor function is intact. Psychiatric: Mood and Affect: Mood and affect normal. Behavior: Behavior normal. Thought Content: Thought content normal. Cognition and Memory: Memory normal. Judgment: Judgment normal. Neurological Exam Mental Status Alert. Oriented to person, place, and time. Memory is normal. Cranial Nerves CN III, IV, : Extraocular movements intact bilaterally. Extraocular movements intact bilaterally. Pupils equal round and reactive to light bilaterally. Motor Strength is 5/5 throughout all four extremities. Sensory Normal sensation. Assessment and Plan Encounter Diagnoses Name Primary? Psoriatic arthritis Yes 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 Abnormal renal function test Encounter for long-term (current) use of non-steroidal anti-inflammatories History of malignant neoplasm of skin History of osteomyelitis Long-term current use of high risk medication other than anticoagulant 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, intermediate manager, current use On statin therapy Other intermediate manager (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 Cervical disc disorder Cervical disc disorder, unspecified, unspecified cervical region Primary osteoarthritis of both knees Infliximab (Remicade) long-term use 1. Patient stopped Humira as no longer is getting assistance 2. Time was spent with the patient today in education in re: to all their medical conditions. A complete H&P&ROS was obtained and is either in this note or in the EHR. Please do not hesitate to contact me with any questions or concerns re: this patient. 3. Thank you for allowing me to participate in the care of your patient. With your permission I would like to F/U with your patient. 4. CRP was negative at < 2.9 and still is at < 2.9 5. 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 (M T X):Hold MTX week before, week during and, week after any surgery. Hold MTX any time have an infection can restart once off of ATB and/or antiviral and free of infection. Hold MTX week before, week during and, week after any live attenuated vaccine (shingles). Monitor CBC/LFT/Renal func every 2-3 months on MTX. hold MTX anytime there is an open wound and can restart once wound has healed 6. Hold Remicade month before and month after any surgery. Hold Remicade anytime have an infection can restart once off of ATB and/or antiviral and free of infection. Hold Remicade month before and month after live attenuated vaccines (shingles). Hold Remicade is open wound and can restart once wound has healed. 7. ESR was normal at 5 and still is at 10 8. Inflectra to 8 mg / kg IV every 6 weeks 9. Lab on or about 07/27/2023 and every 3 months thereafter 10. Patient is taking Glucosamine and Vit D3 11. Patient told he could take OTC Aleve and Tyelnol 12. Monitor CBC/LFT/Renal func every 6-12 months as long as patient is on daily NSAID 13. . L ankle surgery by podiatry 09/26/[address] Johnson for posterior tibial tendon tear - podiatry. S/P L midfoot amputation for infection. 14. Uric acid was normal at 5.9 15. FORCE DISPATCHER is elevated at 1.55 with GFr of 46 16. Derm F/U per Dr. Joe malloy 17. Call if need Rx's 18. Optho F/U per Dr. Chan. 19. Rx given for Prednisone 5 gm 8 pills one day decrease by 1 pill a day until off to be used as needed. 20. 90 day supply on medications 21. Rx given for 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 3 pills one day a week 22. F/U with me in 4 months documented in this encounter [facility] 03-28-2023 Note [facility] HISTORY & PHYSICAL NAME ACCOUNT SEX AGE ADMIT DISCHARGE PT MED. RECORD# NUMBER DATE DATE TYPE LESLY, [id number] M 77 03/03/23 03/03/23 2 YESSI [id number] ROOM: DATE OF : 41 DICTATING PHYSICIAN: Patrick Farley PREOPERATIVE DIAGNOSES: 1. Ulcer with possible osteomyelitis of the left hallux. 2. Nonhealing ulcer of left second distal toe. 3. Diabetes mellitus with peripheral neuropathy. HISTORY OF PRESENT ILLNESS: The patient is known to me from my private office, where he had presented several weeks ago complaining of a nonhealing ulceration to the left hallux. The patient and his admit that the patient has dealt with many ulcerations throughout the years, and this ulcer at the hallux has been there for over a year. He had been treated at the wound healing center. The patient was wearing diabetic shoes, but there was no custom offloading insole inside. The patient was adamant that he was walking in the shoe at all times at home. The patient's wound started to get larger over time, and an appointment was made for him to go to [facility] but unfortunately the appointment is not for at least another month. The patient then had called the office stating that his foot was starting to get warm and swollen, and the previous cultures had been taken. The patient was encouraged to report to the Emergency Department, where he did at [facility]. He was admitted for a few days and placed on antibiotics. He was educated that surgical intervention would likely be necessary in an effort to heal the wound. The patient wished to follow up as an outpatient to have the surgery performed. When the patient had come to the office, he stated that another comparison shopper had suggested a Cosme arthroplasty with pin placement in the big toe as well as an arthroplasty of the left second toe to straighten it a little better. ALLERGIES: Bactrim, Levaquin and penicillin. IMPRESSION/PLAN: The risks, complications, and alternative treatments were reviewed in detail. We did discuss continued conservative treatment and await the offloading insole. The hospitalist had spoken to me personally, stating that there obviously was some confusion with the patient, and his admitted that to them so sometimes strict adherence to recommendations was questionable. We did discuss that it is not advisable to put metal implants into an area where there is a known infection, and that could result in further infection. We also discussed the head of the proximal phalanx of the left hallux is deformed possibly from remote chronic osteomyelitis, as the patient states that surgery was never performed there and there was never an injury. Surgical intervention was discussed, and it was recommended for a hallux amputation to give the most predictable outcome of healing. Also, straightening the left second toe Page 1 of 2 YESSI GRACE History & Physical YESSI GRACE :1945 in the face of an ulceration and an absent hallux would make the second toe much longer. We do recommend a distal Syme's amputation, and the patient concurs. The patient will present for outpatient surgical intervention to [facility] on the morning of March 04, 2023. All questions were answered, and no guarantees were given. The patient understands that he may need a plate stiffener in his shoe. He also understands that it could take several weeks to heal and further surgery as well as skin breakdown could be present. All questions were answered. The patient will continue with outpatient antibiotics as directed upon his discharge. Dictated By: Patrick Farley DPM 03/03/23 17:05 JOB #: [id number] Transcribed By: fani 03/03/23 17:15 Electronically signed by: E-SIGN PATRICK FARLEY 03/28/23 07:28 Update to H&P: [ ] No changes: I have examined the patient and reviewed the H&P and there are no changes. [ ] As previously dictated with the following changes: PHYSICIAN SIGNATURE: TIME: DATE: Page 2 of 2 YESSI GRACE History & Physical [facility] 09-20-2022 History of Present illness Narrative Images from the original note were not included. History of Present Illness Patient started Humira 9/26/16. Humira was helping and not bothering him. Patient lost financial assistance and is now 2 expensive. Patient started Generic remicade in 03/2018. Remicade has been helping and not bothering him. Renflexis is 8 mg/kg every 6 weeks. Presence of Pain: denies pain/discomfort. Total time spent in this encounter was 20 minutes. Psoriasis/Rash fluctuates. Glaucoma is doing all right. About the same. Claudication continues. Prostates is the same. Joint pain is knees. Patient is here today for his 4 Month F/U. Patient states he is not having joint pain. Patient states he has been doing good since his last appointment. Patient states the Infect[facility] infusions are working good. Prednisone one time since last seen for psoriasis. I have been told that prednisone is a high risk medication. I have been told that patient is on a high risk medication as it either treats cancer or requires blood work every 2-3 months. Review of Systems Review of Systems Constitutional: Negative. Skin: Psoriasis HENT: Negative. Eyes: Glaucoma Cardiovascular: Positive for claudication. Respiratory: Negative. Gastrointestinal: Negative. Breast: Negative. Genitourinary: BPH Musculoskeletal: Positive for joint pain. Neurological: Negative. Psychiatric: Negative. Allergy/Immunology: Negative. Lymph/Heme: Negative. Endocrine: Negative. Physical Exam Blood pressure 134/78, pulse 70, temperature 98 F (36.7 C), temperature source Temporal, height 1.829 m (6'), weight 102.1 kg (225 lb), SpO2 97 %. Physical Exam Vitals and nursing note reviewed. Constitutional: Appearance: Normal appearance. He is obese. HENT: Head: Normocephalic and atraumatic. 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 Left Ear: External ear normal. Nose: Nose normal. Mouth/Throat: Comments: mask Eyes: Extraocular Movements: Extraocular movements intact and EOM normal. Conjunctiva/sclera: Conjunctivae normal. Pupils: Pupils are equal, round, and reactive to light. Cardiovascular: Rate and Rhythm: Normal rate and regular rhythm. Pulses: Radial pulses are 2+ on the right side and 2+ on the left side. Heart sounds: Normal heart sounds. Pulmonary: Effort: Pulmonary effort is normal. Breath sounds: Normal breath sounds. Abdominal: General: Bowel sounds are normal. Palpations: Abdomen is soft. Comments: obese Musculoskeletal: Right shoulder: Decreased range of motion. Left shoulder: Decreased range of motion. Right upper arm: Normal. Left upper arm: Normal. Right elbow: Decreased range of motion. Left elbow: Decreased range of motion. Right forearm: Normal. Left forearm: Normal. Right wrist: Crepitus present. Decreased range of motion. Left wrist: Crepitus present. Decreased range of motion. Right hand: Decreased range of motion. Left hand: Decreased range of motion. Cervical back: Neck supple. Right upper leg: Normal. Left upper leg: Normal. Right knee: Decreased range of motion. Left knee: Swelling and effusion present. Decreased range of motion. Right lower le+ Edema present. Left lower le+ Edema present. Right ankle: Decreased range of motion. Left ankle: Decreased range of motion. Legs: Skin: General: Skin is warm and dry. Findings: Bruising present. Comments: Psoriasis a little in scalp -imporved Also now arms. - improved Neurological: Mental Status: He is alert and oriented to person, place, and time. Cranial Nerves: Cranial nerves 2-12 are intact. Sensory: Sensation is intact. Motor: Motor strength is normal. Motor function is intact. Psychiatric: Mood and Affect: Mood and affect normal. Behavior: Behavior normal. Thought Content: Thought content normal. Cognition and Memory: Memory normal. Judgment: Judgment normal. Neurological Exam Mental Status Alert. Oriented to person, place, and time. Memory is normal. Cranial Nerves CN III, IV, : Extraocular movements intact bilaterally. Extraocular movements intact bilaterally. Pupils equal round and reactive to light bilaterally. Motor Strength is 5/5 throughout all four extremities. Sensory Normal sensation. Left Knee Exam Other Effusion: effusion present Assessment and Plan Encounter Diagnoses Name Primary? Psoriatic arthritis Yes 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 Actinic keratosis Asteatosis cutis Eczema, unspecified type Other skin changes due to chronic exposure to nonionizing radiation Photoaged skin Seborrheic eczema Seborrheic keratosis Vesicular palmoplantar eczema Encounter for long-term (current) use of non-steroidal anti-inflammatories History of malignant neoplasm of skin History of osteomyelitis Long-term current use of high risk medication other than anticoagulant On statin therapy Other intermediate manager (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 Cervical disc disorder Cervical disc disorder, unspecified, unspecified cervical region Primary osteoarthritis of both knees 1. Patient stopped Humira as no longer is getting assistance 2. Time was spent with the patient today in education in re: to all their medical conditions. A complete H&P&ROS was obtained and is either in this note or in the EHR. Please do not hesitate to contact me with any questions or concerns re: this patient. 3. Thank you for allowing me to participate in the care of your patient. With your permission I would like to F/U with your patient. 4. CRP was elevated at 5.46 and is now negative at < 2.9 5. 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 (M T X):Hold MTX week before, week during and, week after any surgery. Hold MTX any time have an infection can restart once off of ATB and/or antiviral and free of infection. Hold MTX week before, week during and, week after any live attenuated vaccine (shingles). Monitor CBC/LFT/Renal func every 2-3 months on MTX. hold MTX anytime there is an open wound and can restart once wound has healed 6. Hold Remicade month before and month after any surgery. Hold Remicade anytime have an infection can restart once off of ATB and/or antiviral and free of infection. Hold Remicade month before and month after live attenuated vaccines (shingles). Hold Remicade is open wound and can restart once wound has healed. 7. ESR was normal at 13 and still is at 5 8. Inflectra to 8 mg / kg IV every 6 weeks 9. Lab on or about 11/23/2022 and every 3 months thereafter 10. Patient is taking Glucosamine and Vit D 11. Patient told he could take OTC Aleve and Tyelnol 12. Monitor CBC/LFT/Renal func every 6-12 months as long as patient is on daily NSAID 13. . L ankle surgery by podiatry 09/26/[address] Johnson for posterior tibial tendon tear - podiatry. S/P L midfoot amputation for infection. 14. Uric acid is normal at 5.9 15. F/U with me in 16. Derm F/U per Dr. Joe malloy 17. Call if need Rx's 18. Optho F/U per Dr. Chan. 19. Wound clinic in [place] 20. 90 day supply on medications documented in this encounter [facility] 05-19-2022 History of Present illness Narrative Images from the original note were not included. History of Present Illness Patient started Humira 08/09/16. Humira was helping and not bothering him. Patient lost financial assistance and is now 2 expensive. Patient started Generic remicade in 03/2018. Remicade has been helping and not bothering him. Renflexis is 8 mg/kg every 8 weeks. Presence of Pain: denies pain/discomfort. Total time spent in this encounter was 30 minutes. Psoriasis/Rash is doing better as got injection from derm last week. Glaucoma is the same. Claudication continues. BPH is doing all right he guesses. Joint pain is just the knees. Patient is here for a 6 Month F/U. Patient states that he is not having any pain today. Patient states he is currently on an ATB and seeing the wound clinic for 3 wounds. I told patient to stop Infusions and 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 until healed. A week ago he had right hand pain but it is better. Prednisone 3 times since last seen 2 times for joint pain and the other was for psoriasis. I have been told that prednisone is a high risk medication. Patient has been off and on medications since last seen. I have been told that patient is on a high risk medication as it either treats cancer or requires blood work every 2-3 months. Patient is on ATB for B/L LE ulcers. Patient would like to go to every 6 weeks on Renflexis Review of Systems Review of Systems Constitutional: Negative. Skin: Psoriasis HENT: Negative. Eyes: Glaucoma Cardiovascular: Positive for claudication. Respiratory: Negative. Gastrointestinal: Negative. Breast: Negative. Genitourinary: BPH Musculoskeletal: Positive for joint pain. Neurological: Negative. Psychiatric: Negative. Allergy/Immunology: Negative. Lymph/Heme: Negative. Endocrine: Negative. Physical Exam Blood pressure 128/82, pulse 65, height 1.829 m (6'), weight 98.9 kg (218 lb), SpO2 99 %. Physical Exam Vitals and nursing note reviewed. Constitutional: Appearance: Normal appearance. He is obese. HENT: Head: Normocephalic and atraumatic. 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 Left Ear: External ear normal. Nose: Nose normal. Mouth/Throat: Comments: mask Eyes: Extraocular Movements: Extraocular movements intact and EOM normal. Conjunctiva/sclera: Conjunctivae normal. Pupils: Pupils are equal, round, and reactive to light. Cardiovascular: Rate and Rhythm: Normal rate and regular rhythm. Pulses: Radial pulses are 2+ on the right side and 2+ on the left side. Heart sounds: Normal heart sounds. Comments: B/L PHAM wraps Pulmonary: Effort: Pulmonary effort is normal. Breath sounds: Normal breath sounds. Abdominal: General: Bowel sounds are normal. Palpations: Abdomen is soft. Comments: obese Musculoskeletal: Right shoulder: Decreased range of motion. Left shoulder: Decreased range of motion. Right upper arm: Normal. Left upper arm: Normal. Right elbow: Normal. Left elbow: Normal. Right forearm: Normal. Left forearm: Normal. Right wrist: Crepitus present. Decreased range of motion. Left wrist: Crepitus present. Decreased range of motion. Right hand: Decreased range of motion. Left hand: Decreased range of motion. Cervical back: Neck supple. Right upper leg: Normal. Left upper leg: Normal. Right knee: Decreased range of motion. Left knee: Decreased range of motion. Right lower leg: Edema present. Left lower leg: Edema present. Right ankle: Decreased range of motion. Left ankle: Decreased range of motion. Legs: Skin: General: Skin is warm and dry. Comments: Psoriasis a little in scalp -imporved Also now arms. - improved Neurological: Mental Status: He is alert and oriented to person, place, and time. Cranial Nerves: Cranial nerves are intact. Sensory: Sensation is intact. Motor: Motor function is intact. Deep Tendon Reflexes: Strength normal. Psychiatric: Mood and Affect: Mood and affect normal. Behavior: Behavior normal. Thought Content: Thought content normal. Cognition and Memory: Memory normal. Judgment: Judgment normal. Neurological Exam Mental Status Alert. Oriented to person, place, and time. Memory is normal. Cranial Nerves CN III, IV, : Extraocular movements intact bilaterally. Extraocular movements intact bilaterally. Pupils equal round and reactive to light bilaterally. Motor Strength is 5/5 throughout all four extremities. Sensory Normal sensation. Assessment and Plan Encounter Diagnoses Name Primary? Psoriatic arthritis Yes Psoriatic arthritis mutilans Unspecified open wound, unspecified foot, initial encounter 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 Photoaged skin CRP elevated History of malignant neoplasm of skin History of osteomyelitis intermediate (current) use of antibiotics Long-term current use of high risk medication other than anticoagulant 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, intermediate manager, current use On statin therapy Other detention (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 Personal history of other malignant neoplasm of skin Cervical disc disorder Cervical disc disorder, unspecified, unspecified cervical region Primary osteoarthritis of both knees 1. Patient stopped Humira as no longer is getting assistance 2. Time was spent with the patient today in education in re: to all their medical conditions. A complete H&P&ROS was obtained and is either in this note or in the EHR. Please do not hesitate to contact me with any questions or concerns re: this patient. 3. Thank you for allowing me to participate in the care of your patient. With your permission I would like to F/U with your patient. 4. CRP was negative at < 2.90 and is now elevated at 5.46 5. 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 (M T X):Hold MTX week before, week during and, week after any surgery. Hold MTX any time have an infection can restart once off of ATB and/or antiviral and free of infection. Hold MTX week before, week during and, week after any live attenuated vaccine (shingles). Monitor CBC/LFT/Renal func every 2-3 months on MTX. hold MTX anytime there is an open wound and can restart once wound has healed 6. Hold Remicade month before and month after any surgery. Hold Remicade anytime have an infection can restart once off of ATB and/or antiviral and free of infection. Hold Remicade month before and month after live attenuated vaccines (shingles). Hold Remicade is open wound and can restart once wound has healed. 7. ESR was normal at 9 and still is at 13 8. Inflectra to 8 mg / kg IV every 6 weeks 9. Lab on or about 06/21/2022 and every 2 months thereafter 10. Patient is taking Glucosamine and Vit D 11. Patient told he could take OTC Aleve and Tyelnol 12. Monitor CBC/LFT/Renal func every 6-12 months as long as patient is on daily NSAID 13. . L ankle surgery by podiatry 09/26/[address] Johnson for posterior tibial tendon tear - podiatry. S/P L midfoot amputation for infection. 14. HGB was low at 12.3 and is now normal at 13.8 15. Derm would like him to get Renflexis more often 16. Derm F/U per Dr. Joe malloy 17. Rx given for Prednisone 5 mg 8 pills one day decrease by 1 pill a day until off to be used as needed 18. F/u with me in 4 months 19. Optho F/U per Dr. Chan. 20. Wound clinic in [place] 21. 90 day supply on medications documented in this encounter [facility] 03-23-2021 History of Present illness Narrative History of Present Illness Patient started Humira 08/09/16. Humira was helping and not bothering him. Patient lost financial assistance and is now 2 expensive. Patient started Generic remicade in 03/2018. Remicade has been helping and not bothering him. Renflexis is 8 mg/kg every 8 weeks. Presence of Pain: denies pain/discomfort. Total time spent in this encounter was 25 minutes. Psoriasis/Rash is worse. Glaucoma is doing all right. Legs still getting tired when he walks. Patient is going to have vascular procedure next month. Joint pain is knees. Comes and Goes. Patient is here for a 6 Month F/U. Patient states that he is not in any pain today. Patient has a bone infection and is being treated by tanesha morales cnp. 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 I have been told that patient is on a high risk medication as it either treats cancer or requires blood work every 2-3 months. 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 is 3 pills one day a week. I have no results of blood work and will try to track those down. Review of Systems Review of Systems Constitutional: Negative. Skin: Positive for rash. Psoriasis HENT: Negative. Eyes: Glaucoma Cardiovascular: Positive for claudication. Respiratory: Negative. Gastrointestinal: Negative. Breast: Negative. Genitourinary: BPH Musculoskeletal: Positive for joint pain. Neurological: Negative. Psychiatric: Negative. Allergy/Immunology: Negative. Lymph/Heme: Negative. Endocrine: Negative. Physical Exam Blood pressure 128/72, pulse 73, temperature 98.4 F (36.9 C), height 1.829 m (6'), weight 106.6 kg (235 lb), SpO2 96 %. Physical Exam Constitutional: He is oriented to person, place, and time and well-developed, well-nourished, and in no distress. HENT: Head: Normocephalic and atraumatic. Right Ear: External ear normal. Left Ear: External ear normal. Nose: Nose normal. Mouth/Throat: Oropharynx is clear and moist. 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 Conjunctivae and EOM are normal. Cardiovascular: Normal rate, regular rhythm and normal heart sounds. Pulses: Radial pulses are 2+ on the right side and 2+ on the left side. Pulmonary/Chest: Effort normal and breath sounds normal. Abdominal: Soft. Bowel sounds are normal. obese Musculoskeletal: Right shoulder: Decreased range of motion. Left shoulder: Decreased range of motion. Right upper arm: Normal. Left upper arm: Normal. Right elbow: Normal. Left elbow: Normal. Right forearm: Normal. Left forearm: Normal. Right wrist: Crepitus present. Decreased range of motion. Left wrist: Crepitus present. Decreased range of motion. Right hand: Normal. Left hand: Normal. Cervical back: Neck supple. Right upper leg: Normal. Left upper leg: Normal. Right knee: Decreased range of motion. Left knee: Decreased range of motion. Right lower leg: Edema present. Left lower leg: Edema present. Right ankle: Decreased range of motion. Left ankle: Decreased range of motion. Legs: Neurological: He is alert and oriented to person, place, and time. He has normal sensation, normal strength and intact cranial nerves. Gait abnormal. GCS score is 15. Skin: Skin is warm and dry. Rash noted. Psoriasis a little in scalp -imporved Also now arms. - improved Psychiatric: Mood, memory, affect and judgment normal. Nursing note and vitals reviewed. Neurologic Exam Mental Status Oriented to person, place, and time. Cranial Nerves CN III, IV, Pupils are equal, round, and reactive to light. Extraocular motions are normal. Motor Exam Strength Strength 5/5 throughout. 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 Patient stopped Humira as no longer is getting assistance 2. Time was spent with the patient today in education in re: to all their medical conditions. A complete H&P&ROS was obtained and is either in this note or in the EHR. Please do not hesitate to contact me with any questions or concerns re: this patient. 3. Thank you for allowing me to participate in the care of your patient. With your permission I would like to F/U with your patient. 4. CRP was elevated at 3.06 5. 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 (M T X):Hold MTX week before, week during and, week after any surgery. Hold MTX any time have an infection can restart once off of ATB and/or antiviral and free of infection. Hold MTX week before, week during and, week after any live attenuated vaccine (shingles). Monitor CBC/LFT/Renal func every 2-3 months on MTX. hold MTX anytime there is an open wound and can restart once wound has healed 6. Hold Remicade month before and month after any surgery. Hold Remicade anytime have an infection can restart once off of ATB and/or antiviral and free of infection. Hold Remicade month before and month after live attenuated vaccines (shingles). Hold Remicade is open wound and can restart once wound has healed. 7. ESR was normal at 17 8. Remicade to 8 mg / kg IV every 8 weeks 9. Lab on or about 04/14/2021 and every 2 months thereafter - patient has standing order 10. Patient is taking Glucosamine and Vit D 11. Patient told he could take OTC Aleve and Tyelnol 12. Monitor CBC/LFT/Renal func every 6-12 months as long as patient is on daily NSAID 13. Call if need Rx's 14. L ankle surgery by podiatry 09/26/[address] Johnson for posterior tibial tendon tear - podiatry. S/P L midfoot amputation for infection. 15. F/U with me in 4 months documented in this encounter [facility] Psoriatic arthritis- Primary Psoriatic arthropathy Psoriatic arthritis mutilans Psoriatic arthropathy Unspecified open wound, unspecified foot, initial encounter Psoriasis Other psoriasis Pustulosis palmaris et plantaris Other psoriasis Asteatosis cutis Other specified disease of sebaceous glands Photoaged skin Other chronic dermatitis due to solar radiation CRP elevated Elevated C-reactive protein (CRP) History of malignant neoplasm of skin Personal history of other malignant neoplasm of skin History of osteomyelitis Personal history of other musculoskeletal disorders continuous churn buttermaker (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) use of antibiotics Long-term current use of high risk medication other than anticoagulant 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, detention, current use Encounter for long-term (current) use of other medications On statin therapy Other intermediate manager (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 Personal history of other malignant neoplasm of skin Cervical disc disorder Other and unspecified disc disorder of cervical region Cervical disc disorder, unspecified, unspecified cervical region Primary osteoarthritis of both knees Primary localized osteoarthrosis, lower leg Seborrheic eczema Other seborrheic dermatitis Eczema, unspecified type Encounter for long-term (current) use of non-steroidal anti-inflammatories continuous churn buttermaker 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 Osteoarthritis of both knees, unspecified osteoarthritis type [facility] Diagnosis Psoriatic arthritis- Primary Psoriatic arthropathy Psoriatic arthritis mutilans Psoriatic arthropathy Psoriasis Other psoriasis Pustulosis palmaris et plantaris Other psoriasis Actinic keratosis Asteatosis cutis Other specified disease of sebaceous glands Eczema, unspecified type Other skin changes due to chronic exposure to nonionizing radiation Photoaged skin Other chronic dermatitis due to solar radiation Seborrheic eczema Other seborrheic dermatitis Seborrheic keratosis Other seborrheic keratosis Vesicular palmoplantar eczema Dyshidrosis Encounter for long-term (current) use of non-steroidal anti-inflammatories History of malignant neoplasm of skin Personal history of other malignant neoplasm of skin History of osteomyelitis Personal history of other musculoskeletal disorders Long-term current use of high risk medication other than anticoagulant On statin therapy Other intermediate manager (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 Cervical disc disorder Other and unspecified disc disorder of cervical region Cervical disc disorder, unspecified, unspecified cervical region Primary osteoarthritis of both knees Primary localized osteoarthrosis, lower leg [facility] Diagnosis Psoriatic arthritis- Primary Psoriatic arthropathy Psoriatic arthritis mutilans Psoriatic arthropathy Psoriasis Other psoriasis Pustulosis palmaris et plantaris Other psoriasis Abnormal renal function test Nonspecific abnormal results of kidney function study Encounter for long-term (current) use of non-steroidal anti-inflammatories History of malignant neoplasm of skin Personal history of other malignant neoplasm of skin History of osteomyelitis Personal history of other musculoskeletal disorders Long-term current use of high risk medication other than anticoagulant 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, detention, current use Encounter for long-term (current) use of other medications On statin therapy Other intermediate manager (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 Cervical disc disorder Other and unspecified disc disorder of cervical region Cervical disc disorder, unspecified, unspecified cervical region Primary osteoarthritis of both knees Primary localized osteoarthrosis, lower leg Infliximab (Remicade) long-term use [facility] Diagnosis Psoriatic arthritis mutilans- Primary Psoriatic arthropathy Psoriatic arthritis Psoriatic arthropathy Primary osteoarthritis of both knees Primary localized osteoarthrosis, lower leg Cervical disc disorder, unspecified, unspecified cervical region Cervical disc disorder Other and unspecified disc disorder of cervical region Pustulosis palmaris et plantaris Other psoriasis Psoriasis Other psoriasis Seborrheic eczema Other seborrheic dermatitis Photoaged skin Other chronic dermatitis due to solar radiation Other skin changes due to chronic exposure to nonionizing radiation Eczema, unspecified type Asteatosis cutis Other specified disease of sebaceous glands Actinic keratosis Personal history of other malignant neoplasm of skin Other detention (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 On statin therapy Nocturia 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, detention, current use Encounter for long-term (current) use of other medications Long-term current use of high risk medication other than anticoagulant History of osteomyelitis Personal history of other musculoskeletal disorders History of malignant neoplasm of skin Personal history of other malignant neoplasm of skin Encounter for long-term (current) use of non-steroidal anti-inflammatories documented in this encounter [facility] Summary Purpose Family History No Family History Records FoundNo Family History Records FoundNo Family History Records FoundNo Family History Records FoundNo Family History Records Found Advance Directives No Advanced Directives Records FoundNo Advanced Directives Records FoundNo Advanced Directives Records FoundNo Advanced Directives Records FoundNo Advanced Directives Records Found History of Present Illness * Coco Shah Jr., DO - 10/08/2019 10:45 AM EST History of Present Illness Patient started Humira 08/09/16. Humira was helping and not bothering him. Patient lost financial assistance and is now 2 expensive. Patient started Generic remicade in 03/2018. Remicade has been helping and not bothering him. Presence of Pain: denies pain/discomfort . Due to complex issues I spent at least 24 minutes in face to face time with patient, more than 50% of that time was spent on counseling and coordination of care. Psoriasis is under control. Rash on arms. Glaucoma is stable. Claudication is improved. Joint pain is very minor. BPH is unchanged. Patient is here today for his 6 MonthF/U. Patient states he has been doing okay since his last appointment. Patient states he has a rashall over his body that does not seem to be going away. Patient is wanting to know if the Remicade is causing. Patient states the rash will itch. 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 is 3 pills one day a week. I have been told that patient is on a high risk medication as it either treats cancer or requires blood work every2-3 months. Remicade is wearing off at 7 weeks. Patient was off of Remicade for foot surgery. Review of Systems Review of Systems Constitutional: Negative. Skin: Positive for rash. Psoriasis HENT: Negative. Eyes: Glaucoma Cardiovascular: Positive for claudication. Respiratory: Negative. Gastrointestinal: Negative. Breast: Negative. Genitourinary: BPH Musculoskeletal: Positive for joint pain. Neurological: Negative. Psychiatric: Negative. Allergy/Immunology: Negative. Lymph/Heme: Negative. Endocrine: Negative. Physical Exam Blood pressure 128/74, pulse 68, temperature 97 F (36.1 C), temperature source Temporal, height 1.829 m (6'), weight 102.5 kg (226 lb), SpO2 97 %. Physical Exam Constitutional: He is oriented to person, place, and time and well-developed, well-nourished, and in no distress. HENT: Head: Normocephalic and atraumatic. Right Ear: External ear normal. Left Ear: External ear normal. Nose: Nose normal. Mouth/Throat: Oropharynx is clear and moist. Male pattern alopecia Eyes: Pupils are equal, round, and reactive to light. Conjunctivae and EOM are normal. Neck: Neck supple. Cardiovascular: Normal rate, regular rhythm and normal heart sounds. Pulses: Radial pulses are 2+ on the right side and 2+ on the left side. Pulmonary/Chest: Effort normal and breath sounds normal. Abdominal: Soft. Bowel sounds are normal. obese Musculoskeletal: Right shoulder: He exhibits decreased range of motion. Left shoulder: He exhibits decreased range of motion. Right elbow: Normal. Left elbow: Normal. Right wrist: He exhibits decreased range of motion and crepitus. Left wrist: He exhibits decreased range of motion and crepitus. Right knee: He exhibits decreased range of motion. Left knee: He exhibits decreased range of motion. Right ankle: He exhibits decreased range of motion. Left ankle: He exhibits decreased range of motion. Right upper arm: Normal. Left upper arm: Normal. Right forearm: Normal. Left forearm: Normal. Right hand: He exhibits decreased range of motion. Left hand: He exhibits decreased range of motion. Right upper leg: Normal. Left upper leg: Normal. Right lower leg: Edema present. Left lower leg: Edema present. Legs: Neurological: He is alert and oriented to person, place, and time. He has normal sensation, normal strength and intact cranial nerves. Gait normal. GCS score is 15. Skin: Skin is warm and dry. Rash noted. Psoriasis a little in scalp Also now arms. Psychiatric: Mood, memory, affect and judgment normal. Nursing note and vitals reviewed. Neurologic Exam Mental Status Oriented to person, place, and time. Cranial Nerves CN III, IV, Pupils are equal, round, and reactive to light. Extraocular motions are normal. Motor Exam Strength Strength 5/5 throughout. Gait, Coordination, and Reflexes Gait Gait: normal Assessment and Plan Encounter Diagnoses Name Primary? 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 Patient stopped Humira as no longer is getting assistance 2. Time was spent with the patient today in education in re: to all their medical conditions. A complete H&P&ROS was obtained and is either in this note or in the EHR. Please do not hesitate to contact me with any questions or concerns re: this patient. 3. Thank you for allowing me to participate in the care of your patient. With your permission I would like to F/U with your patient. 4. CRP was negative at < 8.9 and still is at < 2.9 5. 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 (M T X):Hold MTX week before, week during and, week after any surgery. Hold MTX anytime have an infection can restart once off of ATB and/or antiviral and free of infection. Hold MTXweek before, week during and, week after any live attenuated vaccine (shingles). Monitor CBC/LFT/Renal func every 2-3 months on MTX. hold MTX anytime there is an open wound and can restart once woundhas healed 6. Hold Remicade month before and month after any surgery. Hold Remicade anytime have an infection can restart once off of ATB and/or antiviral and free of infection. Hold Remicade month before and month after live attenuated vaccines (shingles). Hold Remicade is open wound and can restart once wound has healed. 7. ESR was normal at 12 and still is at 12 8. Rx given for Remicade to increase to 7 mg / kg IV every 8 weeks 9. Lab on or about 09/25/19 and every 2 months thereafter 10. Patient is taking Glucosamine 11. Patient told he could take OTC Aleve and Tyelnol 12. Monitor CBC/LFT/Renal func every 6-12 months as long as patient is on daily NSAID 13. F/U with me in 4 months documented in this encounter* Coco Shah Jr., DO - 09/22/2020 11:30 AM EST History of Present Illness Patient started Humira 08/09/16. Humira was helping and not bothering him. Patient lost financial assistance and is now 2 expensive. Patient started Generic remicade in 03/2018. Remicade has been helping and not bothering him. Renflexis is 8 mg/kg every 8 weeks. Presence of Pain: complains of pain/dis comfort Pain Location: knee, right Select Pain Scale: DVPRS ([employer] Pain Rating Scale) (Adult- Cognitively Intact) DVPRS: Rest: 1- mild pain DVPRS: Activity: 2- mild pain Select Pain Scale: DVPRS ([employer] and [employer] Pain Rating Scale) (Adult- Cognitively Intact) Pain Frequency: constant Pain Quality: aching . Due to complex issues I spent at least 25 minutes in face to face time with patient, more than 50% of that time was spent on counseling and coordination of care. Psoriasis is breaking out here and there. Glaucoma is stable. Claudication continues. Joint pain is a little in the knee - not much. BPH is doing all right. Patient is here for a 4 Month F/U. Patient states he is having tendone repair surgery tuesday with . Patient states that he is doing okay since his last appointment. Patient states he has no new concerns. Patient states he has not stopped his medications for the surgery. I have been told that patient is on a high risk medication as it either treats cancer or requires blood work every 2-3 months. 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 is 3 pills one day a week. Renflexisis lasting the whole 2 months. Patient had blood work 09/04/2020 and we will try to track down those results. Review of Systems Review of Systems Constitutional: Negative. Skin: Positive for rash. Psoriasis HENT: Negative. Eyes: Glaucoma Cardiovascular: Positive for claudication. Respiratory: Negative. Gastrointestinal: Negative. Breast: Negative. Genitourinary: BPH Musculoskeletal: Positive for joint pain. Neurological: Negative. Psychiatric: Negative. Allergy/Immunology: Negative. Lymph/Heme: Negative. Endocrine: Negative. Physical Exam There were no vitals taken for this visit. Physical Exam Constitutional: He is oriented to person, place, and time and well-developed, well-nourished, and in no distress. HENT: Head: Normocephalic and atraumatic. Right Ear: External ear normal. Left Ear: External ear normal. Nose: Nose normal. Mouth/Throat: Oropharynx is clear and moist. 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 Conjunctivae and EOM are normal. Neck: Neck supple. Cardiovascular: Normal rate, regular rhythm and normal heart sounds. Pulses: Radial pulses are 2+ on the right side and 2+ on the left side. Pulmonary/Chest: Effort normal and breath sounds normal. Abdominal: Soft. Bowel sounds are normal. obese Musculoskeletal: Right shoulder: He exhibits decreased range of motion. Left shoulder: He exhibits decreased range of motion. Right elbow: Normal. Left elbow: Normal. Right wrist: He exhibits decreased range of motion and crepitus. Left wrist: He exhibits decreased range of motion and crepitus. Right knee: He exhibits decreased range of motion. Tenderness found. Left knee: He exhibits decreased range of motion. Tenderness found. Right ankle: He exhibits decreased range of motion. Left ankle: He exhibits decreased range of motion. Tenderness. Right upper arm: Normal. Left upper arm: Normal. Right forearm: Normal. Left forearm: Normal. Right hand: Normal. Left hand: Normal. Right upper leg: Normal. Left upper leg: Normal. Right lower leg: Edema present. Left lower leg: Edema present. Legs: Neurological: He is alert and oriented to person, place, and time. He has normal sensation, normal strength and intact cranial nerves. Gait abnormal. GCS score is 15. Skin: Skin is warm and dry. Rash noted. Psoriasis a little in scalp -imporved Also now arms. - improved Psychiatric: Mood, memory, affect and judgment normal. Nursing note and vitals reviewed. Neurologic Exam Mental Status Oriented to person, place, and time. Cranial Nerves CN III, IV, Pupils are equal, round, and reactive to light. Extraocular motions are normal. Motor Exam Strength Strength 5/5 throughout. 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 Patient stopped Humira as no longer is getting assistance 2. Time was spent with the patient today in education in re: to all their medical conditions. A complete H&P&ROS was obtained and is either in this note or in the EHR. Please do not hesitate to contact me with any questions or concerns re: this patient. 3. Thank you for allowing me to participate in the care of your patient. With your permission I would like to F/U with your patient. 4. CRP was elevated at 3.06 5. 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 (M T X):Hold MTX week before, week during and, week after any surgery. Hold MTX anytime have an infection can restart once off of ATB and/or antiviral and free of infection. Hold MTXweek before, week during and, week after any live attenuated vaccine (shingles). Monitor CBC/LFT/Renal func every 2-3 months on MTX. hold MTX anytime there is an open wound and can restart once woundhas healed 6. Hold Remicade month before and month after any surgery. Hold Remicade anytime have an infection can restart once off of ATB and/or antiviral and free of infection. Hold Remicade month before and month after live attenuated vaccines (shingles). Hold Remicade is open wound and can restart once wound has healed. 7. ESR was normal at 17 8. Remicade to 8 mg / kg IV every 8 weeks 9. Lab on or about 11/04/2020 and every 2 months thereafter 10. Patient is taking Glucosamine 11. Patient told he could take OTC Aleve and Tyelnol 12. Monitor CBC/LFT/Renal func every 6-12 months as long as patient is on daily NSAID 13. Folic acid 4 mg a day 14. L ankle surgery by podiatry 09/26/[address] Johnson for posterior tibial tendon tear - podiatry. 15. Call if need Rx's 16. F/U with me in 6 months documented in this encounter* Coco Shah Jr., DO - 01/22/2019 7:45 AM EDT History of Present Illness Patient started Humira 08/09/16. Humira was helping and not bothering him. Patient lost financial assistance and is now 2 expensive. Patient started Generic remicade in 03/2018. Remicade has been helping and not bothering him. Presence of Pain: denies pain/discomfort (01/22/19 0744) Psoriasis is pretty busy. Glaucoma is stable. Claudication continues. Joint pain is no. BPH is doing all right. 4 Month F/U, patient states that he has been doing pretty well. Remicade is lasting there whole 8 weeks. Patient had lab 12/2018 in [place] but I do not have the results and will try to track them down. Review of Systems Review of Systems Constitutional: Negative. Skin: Positive for rash. Psoriasis HENT: Negative. Eyes: Glaucoma Cardiovascular: Positive for claudication. Respiratory: Negative. Gastrointestinal: Negative. Breast: Negative. Genitourinary: BPH Musculoskeletal: Positive for joint pain. Neurological: Negative. Psychiatric: Negative. Allergy/Immunology: Negative. Lymph/Heme: Negative. Endocrine: Negative. Physical Exam Blood pressure 140/78, pulse 51, temperature 96.2 F (35.7 C), temperature source Temporal, height 1.829 m (6'), weight 108.4 kg (238 lb 14.4 oz), SpO2 97 %. Physical Exam Constitutional: He is oriented to person, place, and time and well-developed, well-nourished, and in no distress. HENT: Head: Normocephalic and atraumatic. Right Ear: External ear normal. Left Ear: External ear normal. Nose: Nose normal. Mouth/Throat: Oropharynx is clear and moist. Male pattern alopecia Eyes: Pupils are equal, round, and reactive to light. Conjunctivae and EOM are normal. Neck: Neck supple. Cardiovascular: Normal rate, regular rhythm and normal heart sounds. Pulses: Radial pulses are 2+ on the right side, and 2+ on the left side. Pulmonary/Chest: Effort normal and breath sounds normal. Abdominal: Soft. Bowel sounds are normal. obese Musculoskeletal: Right shoulder: Normal. Left shoulder: Normal. Right elbow: Normal. Left elbow: Normal. Right wrist: He exhibits decreased range of motion and crepitus. Left wrist: He exhibits decreased range of motion and crepitus. Right knee: He exhibits decreased range of motion. Left knee: He exhibits decreased range of motion. Right ankle: He exhibits decreased range of motion. Left ankle: He exhibits decreased range of motion. Right upper arm: Normal. Left upper arm: Normal. Right forearm: Normal. Left forearm: Normal. Right hand: He exhibits decreased range of motion. Left hand: He exhibits decreased range of motion. Right upper leg: Normal. Left upper leg: Normal. Right lower leg: He exhibits edema. Left lower leg: He exhibits edema. Legs: Neurological: He is alert and oriented to person, place, and time. He has normal sensation, normal strength and intact cranial nerves. Gait normal. GCS score is 15. Skin: Skin is warm and dry. Rash noted. Psoriasis a little in scalp Psychiatric: Mood, memory, affect and judgment normal. Nursing note and vitals reviewed. Neurologic Exam Mental Status Oriented to person, place, and time. Cranial Nerves CN III, IV, Pupils are equal, round, and reactive to light. Extraocular motions are normal. Motor Exam Strength Strength 5/5 throughout. Gait, Coordination, and Reflexes Gait Gait: normal Assessment and Plan 1. Patient stopped Humira as no longer is getting assistance 2. Time was spent with the patient today in education in re: to all their medical conditions. A complete H&P&ROS was obtained and is either in this note or in the EHR. Please do not hesitate to contact me with any questions or concerns re: this patient. 3. Thank you for allowing me to participate in the care of your patient. With your permission I would like to F/U with your patient. 4. CRP was negative at < 2.9 and still is at < 8.9 5. 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 (M T X):Hold MTX week before, week during and, week after any surgery. Hold MTX anytime have an infection can restart once off of ATB and/or antiviral and free of infection. Hold MTXweek before, week during and, week after any live attenuated vaccine (shingles). Monitor CBC/LFT/Renal func every 2-3 months on MTX. hold MTX anytime there is an open wound and can restart once woundhas healed 6. Hold Remicade month before and month after any surgery. Hold Remicade anytime have an infection can restart once off of ATB and/or antiviral and free of infection. Hold Remicade month before and month after live attenuated vaccines (shingles). Hold Remicade is open wound and can restart once wound has healed. 7. ESR was normal at 2 and still is at 12 8. Remicade to 6 mg / kg IV every 8 weeks 9. Lab on or about 02/12/19 and every 2 months thereafter - patient has standing order 10. Patient is taking Glucosamine 11. Patient told he could take OTC Aleve and Tyelnol 12. Monitor CBC/LFT/Renal func every 6-12 months as long as patient is on daily NSAID 13. Call if need Rx 14. F/u with me in 6 months documented in this encounter* Coco Shah Jr., DO - 05/14/2020 10:45 AM EDT History of Present Illness Patient started Humira 08/09/16. Humira was helping and not bothering him. Patient lost financial assistance and is now 2 expensive. Patient started Generic remicade in 03/2018. Remicade has been helping and not bothering him. Renflexis is 7 mg/kg every 8 weeks Presence of Pain: denies pain/discomfort . Due to complex issues I spent at least 21 minutes in face to face time with patient, more than 50% of that time was spent on counseling and coordination of care. Psoriasis is stable. Eyes are doing fine. Claudication continues. BPH is stable. Joint pain is not really. Patient is here today for her 4 Month F/u. Patient states he had left foot surgery 01/2020 so he has been recovering from that.Patient states he is not having any joint pain or new symptoms. Patient states the infusions are still working good. I have been told that patient is on a high risk medication as it either treats cancer or requires blood work every 2-3 months. 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 is 3 pills one day a week. Remicade is wearing off before the next infusion. Review of Systems Review of Systems Constitutional: Negative. Skin: Positive for rash. Psoriasis HENT: Negative. Eyes: Glaucoma Cardiovascular: Positive for claudication. Respiratory: Negative. Gastrointestinal: Negative. Breast: Negative. Genitourinary: BPH Musculoskeletal: Positive for joint pain. Neurological: Negative. Psychiatric: Negative. Allergy/Immunology: Negative. Lymph/Heme: Negative. Endocrine: Negative. Physical Exam Blood pressure 130/72, pulse 69, temperature 98.3 F (36.8 C), temperature source Temporal, height 1.829 m (6'), weight 103 kg (227 lb), SpO2 97 %. Physical Exam Constitutional: He is oriented to person, place, and time and well-developed, well-nourished, and in no distress. HENT: Head: Normocephalic and atraumatic. Right Ear: External ear normal. Left Ear: External ear normal. Nose: Nose normal. Mouth/Throat: Oropharynx is clear and moist. 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 Conjunctivae and EOM are normal. Neck: Neck supple. Cardiovascular: Normal rate, regular rhythm and normal heart sounds. Pulses: Radial pulses are 2+ on the right side and 2+ on the left side. Pulmonary/Chest: Effort normal and breath sounds normal. Abdominal: Soft. Bowel sounds are normal. obese Musculoskeletal: Right shoulder: He exhibits decreased range of motion. Left shoulder: He exhibits decreased range of motion. Right elbow: Normal. Left elbow: Normal. Right wrist: He exhibits decreased range of motion and crepitus. Left wrist: He exhibits decreased range of motion and crepitus. Right knee: He exhibits decreased range of motion. Tenderness found. Left knee: He exhibits decreased range of motion. Right ankle: He exhibits decreased range of motion. Left ankle: He exhibits decreased range of motion. Right upper arm: Normal. Left upper arm: Normal. Right forearm: Normal. Left forearm: Normal. Right hand: Normal. Left hand: Normal. Right upper leg: Normal. Left upper leg: Normal. Right lower leg: Edema present. Left lower leg: Edema present. Legs: Neurological: He is alert and oriented to person, place, and time. He has normal motor skills, normal sensation, normal strength and intact cranial nerves. Gait normal. GCS score is 15. Skin: Skin is warm and dry. Rash noted. Psoriasis a little in scalp -imporved Also now arms. - improved Psychiatric: Mood, memory, affect and judgment normal. Nursing note and vitals reviewed. Neurologic Exam Mental Status Oriented to person, place, and time. Cranial Nerves CN III, IV, Pupils are equal, round, and reactive to light. Extraocular motions are normal. Motor Exam Strength Strength 5/5 throughout. Gait, Coordination, and Reflexes Gait Gait: normal Assessment and Plan Encounter Diagnoses Name Primary? 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 Patient stopped Humira as no longer is getting assistance 2. Time was spent with the patient today in education in re: to all their medical conditions. A complete H&P&ROS was obtained and is either in this note or in the EHR. Please do not hesitate to contact me with any questions or concerns re: this patient. 3. Thank you for allowing me to participate in the care of your patient. With your permission I would like to F/U with your patient. 4. CRP was negative at < 2.9 and is now elevated at 3.06 5. 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 (M T X):Hold MTX week before, week during and, week after any surgery. Hold MTX anytime have an infection can restart once off of ATB and/or antiviral and free of infection. Hold MTXweek before, week during and, week after any live attenuated vaccine (shingles). Monitor CBC/LFT/Renal func every 2-3 months on MTX. hold MTX anytime there is an open wound and can restart once woundhas healed 6. Hold Remicade month before and month after any surgery. Hold Remicade anytime have an infection can restart once off of ATB and/or antiviral and free of infection. Hold Remicade month before and month after live attenuated vaccines (shingles). Hold Remicade is open wound and can restart once wound has healed. 7. ESR was normal at 12 and still is at 17 8. Increase Remicade to 8 mg / kg IV every 8 weeks 9. Lab on or about 05/20/2020 and every 2 months thereafter - patient has standing order 10. Patient is taking Glucosamine 11. Patient told he could take OTC Aleve and Tyelnol 12. Monitor CBC/LFT/Renal func every 6-12 months as long as patient is on daily NSAID 13. Folic acid 4 mg a day 14. F/u with me in 4 months documented in this encounter Assessments Diagnosis Psoriatic arthritis- Primary 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 Other psoriasis Asteatosis cutis Other specified disease of sebaceous glands Seborrheic eczema Other seborrheic dermatitis Long-term current use of high risk medication other than anticoagulant 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, intermediate manager, current use Encounter for long-term (current) use of other medications Other intermediate manager (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 Eczema, unspecified type Cervical disc disorder Other and unspecified disc disorder of cervical region Cervical disc disorder, unspecified, unspecified cervical region Osteoarthritis of both knees, unspecified osteoarthritis type Primary osteoarthritis of both knees Primary localized osteoarthrosis, lower leg Psoriasis Other psoriasis intermediate 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 Encounter for long-term (current) use of non-steroidal anti-inflammatories Diagnosis Psoriatic arthritis mutilans- Primary Psoriatic arthropathy Psoriatic arthritis Psoriatic arthropathy Psoriasis Other psoriasis Eczema, unspecified type Personal history of other malignant neoplasm of skin Other intermediate manager (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, detention, current use Encounter for long-term (current) use of other medications Long-term current use of high risk medication other than anticoagulant History of malignant neoplasm of skin Personal history of other malignant neoplasm of skin Encounter for long-term (current) use of non-steroidal anti-inflammatories Primary osteoarthritis of both knees Primary localized osteoarthrosis, lower leg Osteoarthritis of both knees, unspecified osteoarthritis type Cervical disc disorder, unspecified, unspecified cervical region Cervical disc disorder Other and unspecified disc disorder of cervical region Pustulosis palmaris et plantaris Other psoriasis Diagnosis Psoriatic arthritis- Primary 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 Other psoriasis Seborrheic eczema Other seborrheic dermatitis Seborrheic keratosis Other seborrheic keratosis Vesicular palmoplantar eczema Dyshidrosis Encounter for long-term (current) use of non-steroidal anti-inflammatories Long-term current use of high risk medication other than anticoagulant 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, detention, current use Encounter for long-term (current) use of other medications Other intermediate manager (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 Claudication Peripheral vascular disease, unspecified Osteoarthritis of both knees, unspecified osteoarthritis type Primary osteoarthritis of both knees Primary localized osteoarthrosis, lower leg Eczema, unspecified type Psoriasis Other psoriasis Diagnosis Psoriatic arthritis 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 Other psoriasis Long-term current use of high risk medication other than anticoagulant 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, detention, current use Encounter for long-term (current) use of other medications Other intermediate manager (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 Cervical disc disorder Other and unspecified disc disorder of cervical region Cervical disc disorder, unspecified, unspecified cervical region Osteoarthritis of both knees, unspecified osteoarthritis type Primary osteoarthritis of both knees Primary localized osteoarthrosis, lower leg Psoriasis 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 Encounter for long-term (current) use of non-steroidal anti-inflammatories Asteatosis cutis Other specified disease of sebaceous glands Seborrheic eczema Other seborrheic dermatitis Eczema, unspecified type Reason for Referral Specialty Diagnoses / Procedures Referred By Vanesa shultz Referred To Contact Diagnoses Psoriatic arthritis 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 Long-term current use of high risk medication other than anticoagulant 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, detention, current use Other detention (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 Cervical disc disorder Cervical disc disorder, unspecified, unspecified cervical region Primary osteoarthritis of both knees Seborrheic eczema Eczema, unspecified type Encounter for long-term (current) use of non-steroidal anti-inflammatories intermediate 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 Osteoarthritis of both knees, unspecified osteoarthritis type Pablo Wilson, Coco Carter, DO [address] [place] [address] Referral ID Status Reason Start Date Expiration Date Visits Re quested Visits Authorized [id number] Closed 1 1 Additional Source Comments (unrecognized sect ion and content) No Status Records FoundNo Status Records FoundNo Status Records FoundNo Status Records FoundNo Status Records Found INFORMATION SOURCE (unrecogn ized section and content) DATE CREATED AUTHOR AUTHOR'S ORGANIZ ATION 03/10/2023 [facility] ([place]) DATE CREATED AUTHOR AUTHOR'S ORGANIZ ATION 03/28/2023 [facility] DATE CREATED AUTHOR AUTHOR'S ORGANIZ ATION 05/04/2023 [facility] DATE CREATED AUTHOR AUTHOR'S ORGANIZ ATION 10/28/2023 [facility] [place] Reason for Visit (unrecogniz ed section and content) Reason Comments Results Reason Comments Joint Pain Patient is here toda y for his 6 Month F/U. Patient states he has been doing okay since his last appointment. Patient states he has a rash all over his body that does not seem to be going away. Patient is wanting to know if the Remicade is causing. Patient states the rash will itch. Reason Comments Joint Pain Patient is here for a 4 Month F/U. Patient states he is having tendone repair surgery tuesday with . Patient states that he is doing okay since his last appointment. Patient states he has no new concerns. Patient states he has not stopped his medications for the surgery. Reason Comments Joint Pain 4 Month F/U, patient states that he has been doing pretty well. Reason Comments Joint Pain Patient is here toda y for her 4 Month F/u. Patient states he had left foot surgery 01/2020 so he has been recovering from that. Patient states he is not having any joint pain or new symptoms. Patient states the infusions are still working good. Reason Comments Joint Pain Patient is here for a 6 Month F/U. Patient states that he is not in any pain today. Patient has a bone infection and is being treated by tanesha morales cnp. 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 Reason Comments Joint Pain Patient is here for a 6 Month F/U. Patient states that he is not having any pain today. Patient states he is currently on an ATB and seeing the wound clinic for 3 wounds. I told patient to stop Infusions and 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 until healed. Reason Comments Follow-up Patient is here toda y for his 4 Month F/U. Patient states he is not having joint pain. Patient states he has been doing good since his last appointment. Patient states the [facility] infusions are working good. Reason Comments Follow-up Patient is here for 6 month F/U. Patient states that he is doing pretty good. Reason Comments Follow-up Patient is here for 4 month Follow-up. Patient states he is doing ok. States he is having some knee pain. Care Teams (unrecognized sec tion and content) [employer] Relationship Specialty Start Date End Date Zach Turner MD [address] [place] [address] PCP - General Family Medicine 04/18/17 [employer] Relationship Specialty Start Date End Date Zach Turner MD [address] [place] [address] PCP - General Family Medicine 04/18/17 [employer]anner Relationship Specialty Start Date End Date Zach Turner MD [address] [place] [address] PCP - General Family Medicine 04/18/17 FOR RECORDS PERTAINING TO PATIENTS WHO ARE OR HAVE BEEN ENROLLED IN A CHEMICAL DEPENDENCY/SUBSTANCEABUSE PROGRAM, SOME INFORMATION MAY BE OMITTED. This clinical summary was aggregated from multiple sources. Caution should be exercised in using it in the provision of clinical care. This summary normalizes information from multiple sources, and as a consequence, information in this document may materially change the coding, format and clinical context of patient data. In addition, data may be omitted in some cases. CLINICAL DECISIONS SHOULD BE BASED ON THE PRIMARY CLINICAL RECORDS. [facility]. provides no warranty or guarantee of the accuracy or completeness of information in this document.
[2023-11-11] MEDS: 0.9% NaCl IVPB Med Flush (250 mL) 15 ML IV ×2 (10:50→10:53)
[2023-11-11] MEDS: DiphenhydrAMINE 50 MG/ML Syringe 12.5 MG IV (10:50)
[2023-11-11] MEDS: NORMAL SALINE 0.9% IV (11:24)
[2023-11-11] MEDS: INFLIXIMAB DYYB IV (11:24)
== END 2023-11-11 09:53 | disposition home or self-care (01) ==
LOC: MEDOUTP 09:53
PROVIDERS: PCP Family Medicine; Referring Provider Internal Medicine Rheumatology; Visit Provider Internal Medicine Rheumatology
DX: L40.50 Arthropathic psoriasis, unspecified (principal)
CPT/HCPCS: 96413; 96415; 96375; J7050; A4216; Q5103

== ENCOUNTER → 2023-11-22 | Outpatient (CLI) | payer MEDICARE, OTHER, SELFPAY ==
[2023-11-22 13:23] LABS: Erythrocyte Sedimentation Rate 2 mm/hr (0-20)
[2023-11-22 13:26] LABS: Absolute Lymphocyte Count 1.29 X10^3/uL (0.83-4.51); Absolute Neutrophil Count 5.1 X10^3/uL (2.0-7.7); Basophil# 0.04 X10^3/uL; Basophil% 0.5 % (0-1); Eosinophil# 0.58 X10^3/uL; Eosinophils% 7.5 % (0-5); Hemoglobin 14.9 g/dL (13.0-16.5); Lymphocyte # 1.29 X10^3/ul (0.83-4.51); Lymphocyte % 16.7 % (19-41); Mean Corp Hgb Conc 33.1 g/dL (32-36); Mean Corpuscular Hgb 30.4 pg (27.0-32.0); Mean Corpuscular Volume 91.8 fL (80-94); Mean Platelet Vol. 10.4 fl (6.2-12.0); Monocyte# 0.65 X10^3/uL; Monocyte% 8.4 % (0-10); NRBC Flagged by Analyzer 0 % (0-5); Neutrophil # 5.11 X10^3/uL (2.7-7.7); Neutrophil % 66.1 % (47-70); Platelet Count 189 K/mm3 (150-450); RBC Distribution Width CV 13.6 % (11.6-14.6); RBC Distribution Width SD 45.8 fl (35.1-43.9); White Blood Count 7.7 K/mm3 (4.4-11.0)
[2023-11-22 13:55] LABS: AST(SGOT) 34 U/L (15-37); Alanine Aminotransfer ALT/SGPT 54 U/L (16-61); Albumin, Serum 3.6 g/dL (3.2-5.0); Alkaline Phosphatase 77 U/L (45-117); Anion Gap 4 (5-15); BUN 23 mg/dL (7-18); BUN/Creat Ratio 16.5 RATIO (10-20); CRP < 2.90 mg/L (0.0-3.0); Calcium,Total 9.5 mg/dL (8.5-10.1); Chloride 106 mmol/L (98-107); Creatinine, Serum 1.39 mg/dL (0.70-1.30); EST Glomerular Filtration Rate 52 mL/min (>60); Est Glom Filt Rate - Afr Amer 63 mL/min (>60); Globulin 3.7 g/dL (2.2-4.2); Glucose 144 mg/dL (74-106); Potassium 3.9 mmol/L (3.5-5.1); Protein, Total 7.3 g/dL (6.4-8.2); Sodium Level 139 mmol/L (136-145)
[2023-11-22 14:08] LABS: Microalbumin:Creatinine Ratio 235.6 mg/g CRE (<30 mg/g CRE)
== END | disposition home or self-care (01) ==
LOC: LAB 12:49
PROVIDERS: PCP Family Medicine; Referring Provider Internal Medicine Rheumatology; Visit Provider Internal Medicine Rheumatology
DX: L40.52 Psoriatic arthritis mutilans (principal); M17.0 Bilateral primary osteoarthritis of knee; M50.90 Cervical disc disorder, unspecified, unspecified cervical region; L40.3 Pustulosis palmaris et plantaris; L21.9 Seborrheic dermatitis, unspecified; L57.8 Other skin changes due to chronic exposure to nonionizing radiation; L85.3 Xerosis cutis; L57.0 Actinic keratosis; Z85.828 Personal history of other malignant neoplasm of skin; Z79.899 Other long term (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; Z79.631 Long term (current) use of antimetabolite agent; Z87.39 Personal history of other diseases of the musculoskeletal system and connective tissue; Z79.1 Long term (current) use of non-steroidal anti-inflammatories (NSAID)
CPT/HCPCS: 36415; 80053; 82043; 82570; 83036; 85025; 85652; 86140

== ENCOUNTER 2024-01-13 10:01 | Outpatient (CLI) | payer MEDICARE, OTHER, SELFPAY ==
[2024-01-13 10:21] VITALS: BP 134/79; PULSE 72; RESP 16; TEMP 36.3; O2SAT 98; BMI 28.0
[2024-01-13] MEDS: 0.9% NaCl Peripheral Flush Adult/Peds IV (10:47)
[2024-01-13] MEDS: 0.9% NaCl IVPB Med Flush (250 mL) 15 ML IV (10:47)
[2024-01-13] MEDS: DiphenhydrAMINE 50 MG/ML Syringe 12.5 MG IV (10:52)
[2024-01-13] MEDS: INFLIXIMAB DYYB IV (11:01)
[2024-01-13] MEDS: NORMAL SALINE 0.9% IV (11:01)
== END 2024-01-13 10:02 | disposition home or self-care (01) ==
LOC: MEDOUTP 10:01
PROVIDERS: PCP Family Medicine; Referring Provider Internal Medicine Rheumatology; Visit Provider Internal Medicine Rheumatology
DX: L40.50 Arthropathic psoriasis, unspecified (principal)
CPT/HCPCS: 96413; 96415; 96375; J7050; A4216; Q5103

== ENCOUNTER → 2024-02-15 | Outpatient (CLI) | payer MEDICARE, OTHER, SELFPAY | END | disposition home or self-care (01) | LOC: LABSPEC 15:20 | PROVIDERS: PCP Family Medicine; Referring Provider Podiatrist; Visit Provider Podiatrist | DX: L97.522 Non-pressure chronic ulcer of other part of left foot with fat layer exposed (principal) | CPT/HCPCS: 87070; 87077; 87186; 87205 ==

== ENCOUNTER 2024-02-21 11:11 | Outpatient (RCR) | payer MEDICARE, OTHER, SELFPAY ==
[2024-02-21 11:44] LABS: Erythrocyte Sedimentation Rate 3 mm/hr (0-20)
[2024-02-21 11:46] LABS: Absolute Lymphocyte Count 1.27 X10^3/uL (0.83-4.51); Absolute Neutrophil Count 2.7 X10^3/uL (2.0-7.7); Basophil# 0.05 X10^3/uL; Basophil% 0.9 % (0-1); Eosinophil# 0.56 X10^3/uL; Eosinophils% 10.4 % (0-5); Hematocrit 37.2 % (40-54); Hemoglobin 12.7 g/dL (13.0-16.5); Lymphocyte # 1.27 X10^3/ul (0.83-4.51); Lymphocyte % 23.5 % (19-41); Mean Corp Hgb Conc 34.1 g/dL (32-36); Mean Corpuscular Hgb 32.6 pg (27.0-32.0); Mean Corpuscular Volume 95.6 fL (80-94); Mean Platelet Vol. 9.7 fl (6.2-12.0); Monocyte# 0.77 X10^3/uL; Monocyte% 14.2 % (0-10); NRBC Flagged by Analyzer 0 % (0-5); Neutrophil # 2.73 X10^3/uL (2.7-7.7); Neutrophil % 50.4 % (47-70); Platelet Count 218 K/mm3 (150-450); RBC Distribution Width CV 14.7 % (11.6-14.6); RBC Distribution Width SD 50.7 fl (35.1-43.9); Red Blood Count 3.89 M/mm3 (4.6-6.2); White Blood Count 5.4 K/mm3 (4.4-11.0)
[2024-02-21 15:20] LABS: AST(SGOT) 27 U/L (15-37); Alanine Aminotransfer ALT/SGPT 33 U/L (16-61); CRP < 2.90 mg/L (0.0-3.0); Creatinine, Serum 1.42 mg/dL (0.70-1.30); EST Glomerular Filtration Rate 51 mL/min (>60); Est Glom Filt Rate - Afr Amer 62 mL/min (>60)
== END 2024-03-13 22:38 | disposition home or self-care (01) ==
LOC: LAB 11:11
PROVIDERS: PCP Family Medicine; Referring Provider Internal Medicine Rheumatology; Visit Provider Internal Medicine Rheumatology
DX: L40.52 Psoriatic arthritis mutilans; L40.3 Pustulosis palmaris et plantaris; R94.4 Abnormal results of kidney function studies; Z79.1 Long term (current) use of non-steroidal anti-inflammatories (NSAID); Z85.828 Personal history of other malignant neoplasm of skin; Z87.39 Personal history of other diseases of the musculoskeletal system and connective tissue; Z79.899 Other long term (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; Z79.631 Long term (current) use of antimetabolite agent; M50.90 Cervical disc disorder, unspecified, unspecified cervical region; M17.0 Bilateral primary osteoarthritis of knee; Z79.620 Long term (current) use of immunosuppressive biologic
CPT/HCPCS: 36415; 82565; 84450; 84460; 85025; 85652; 86140

== ENCOUNTER 2024-02-24 09:55 | Outpatient (CLI) | payer MEDICARE, OTHER, SELFPAY ==
[2024-02-24 10:11] VITALS: BP 125/52; PULSE 80; RESP 16; TEMP 36.2; O2SAT 98; BMI 28.6
[2024-02-24] MEDS: 0.9% NaCl IVPB Med Flush (250 mL) 15 ML IV (10:35)
[2024-02-24] MEDS: DiphenhydrAMINE 50 MG/ML Syringe 12.5 MG IV (10:38)
[2024-02-24] MEDS: NORMAL SALINE 0.9% IV (11:11)
[2024-02-24] MEDS: INFLIXIMAB DYYB IV (11:11)
== END 2024-02-24 09:56 | disposition home or self-care (01) ==
PROVIDERS: PCP Family Medicine; Referring Provider Internal Medicine Rheumatology; Visit Provider Internal Medicine Rheumatology
DX: L40.52 Psoriatic arthritis mutilans (principal); L21.9 Seborrheic dermatitis, unspecified
CPT/HCPCS: 96375; 96365; 96366; 96413; 96415; J7050; A4216; Q5103

== ENCOUNTER 2024-04-06 10:02 | Outpatient (CLI) | payer MEDICARE, OTHER, SELFPAY ==
[2024-04-06 10:16] VITALS: BP 119/66; PULSE 89; RESP 14; TEMP 35.9; O2SAT 100; BMI 28.2
[2024-04-06] MEDS: 0.9% NaCl Peripheral Flush Adult/Peds IV (10:25)
[2024-04-06] MEDS: DiphenhydrAMINE 50 MG/ML Syringe 12.5 MG IV (10:31)
[2024-04-06] MEDS: 0.9% NaCl IVPB Med Flush (250 mL) 15 ML IV (10:31)
[2024-04-06] MEDS: INFLIXIMAB DYYB IV (10:55)
[2024-04-06] MEDS: NORMAL SALINE 0.9% IV (10:55)
== END 2024-04-06 23:59 | disposition home or self-care (01) ==
LOC: MEDOUTP 10:03
PROVIDERS: PCP Family Medicine; Referring Provider Internal Medicine Rheumatology; Visit Provider Internal Medicine Rheumatology
DX: L40.52 Psoriatic arthritis mutilans (principal); L21.9 Seborrheic dermatitis, unspecified
CPT/HCPCS: 96413; 96415; 96375; J7050; A4216; Q5103

== ENCOUNTER 2024-05-18 09:58 | Outpatient (CLI) | payer MEDICARE, OTHER, SELFPAY ==
[2024-05-18 10:21] VITALS: BP 123/74; PULSE 77; RESP 16; TEMP 36.6; O2SAT 98; BMI 27.9
[2024-05-18] MEDS: 0.9% NaCl Peripheral Flush Adult/Peds IV (10:33)
[2024-05-18] MEDS: DiphenhydrAMINE 50 MG/ML Syringe 12.5 MG IV (10:37)
[2024-05-18] MEDS: INFLIXIMAB DYYB IV (10:54)
[2024-05-18] MEDS: NORMAL SALINE 0.9% IV (10:54)
== END 2024-05-18 23:59 | disposition home or self-care (01) ==
LOC: MEDOUTP 09:59
PROVIDERS: PCP Family Medicine; Referring Provider Internal Medicine Rheumatology; Visit Provider Internal Medicine Rheumatology
DX: L40.52 Psoriatic arthritis mutilans (principal); L40.4 Guttate psoriasis; L21.9 Seborrheic dermatitis, unspecified
CPT/HCPCS: 96413; 96415; 96365; 96366; J7050; A4216; Q5103

== ENCOUNTER → 2024-05-21 | Outpatient (CLI) | payer MEDICARE, OTHER, SELFPAY ==
[2024-05-21 14:36] LABS: Absolute Lymphocyte Count 1.35 X10^3/uL (0.83-4.51); Absolute Neutrophil Count 3.5 X10^3/uL (2.0-7.7); Basophil# 0.07 X10^3/uL; Basophil% 1.1 % (0-1); Eosinophil# 0.72 X10^3/uL; Eosinophils% 11.6 % (0-5); Hematocrit 31.9 % (40-54); Hemoglobin 11.5 g/dL (13.0-16.5); Lymphocyte # 1.35 X10^3/ul (0.83-4.51); Lymphocyte % 21.8 % (19-41); Mean Corp Hgb Conc 36.1 g/dL (32-36); Mean Corpuscular Hgb 36.3 pg (27.0-32.0); Mean Corpuscular Volume 100.6 fL (80-94); Mean Platelet Vol. 10.8 fl (6.2-12.0); Monocyte# 0.56 X10^3/uL; NRBC Flagged by Analyzer 0 % (0-5); Neutrophil # 3.48 X10^3/uL (2.7-7.7); Neutrophil % 56.2 % (47-70); Platelet Count 223 K/mm3 (150-450); RBC Distribution Width CV 14.4 % (11.6-14.6); RBC Distribution Width SD 51.4 fl (35.1-43.9); Red Blood Count 3.17 M/mm3 (4.6-6.2); White Blood Count 6.2 K/mm3 (4.4-11.0)
[2024-05-21 14:41] LABS: Erythrocyte Sedimentation Rate 11 mm/hr (0-20)
[2024-05-21 15:43] LABS: AST(SGOT) 27 U/L (15-37); Alanine Aminotransfer ALT/SGPT 29 U/L (16-61); CRP < 2.90 mg/L (0.0-3.0); Creatinine, Serum 1.27 mg/dL (0.70-1.30); EST Glomerular Filtration Rate 58 mL/min (>60); Est Glom Filt Rate - Afr Amer 70 mL/min (>60)
== END | disposition home or self-care (01) ==
LOC: LAB 13:28
PROVIDERS: PCP Family Medicine; Referring Provider Internal Medicine Rheumatology; Visit Provider Internal Medicine Rheumatology
DX: C61 Malignant neoplasm of prostate (principal); L40.52 Psoriatic arthritis mutilans; D64.89 Other specified anemias; D53.9 Nutritional anemia, unspecified; R94.4 Abnormal results of kidney function studies; Z79.1 Long term (current) use of non-steroidal anti-inflammatories (NSAID); Z85.828 Personal history of other malignant neoplasm of skin; Z87.39 Personal history of other diseases of the musculoskeletal system and connective tissue; Z79.620 Long term (current) use of immunosuppressive biologic; Z79.899 Other long term (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; M50.90 Cervical disc disorder, unspecified, unspecified cervical region; M17.0 Bilateral primary osteoarthritis of knee; L40.3 Pustulosis palmaris et plantaris; L85.3 Xerosis cutis; Z79.631 Long term (current) use of antimetabolite agent; L21.9 Seborrheic dermatitis, unspecified
CPT/HCPCS: 36415; 82565; 84153; 84450; 84460; 85025; 85652; 86140

== ENCOUNTER → 2024-06-04 | Outpatient (CLI) | payer MEDICARE, OTHER, SELFPAY ==
--- NOTE | 2024-06-04 13:55 | RAD_ITS ---
STUDY: X-RAY - LEFT FOOT CLINICAL: Male, 78 years old. Wound overlying the great toe with drainage. TECHNIQUE: 3 view(s) of the foot. COMPARISON: Comparison is made with prior study dated February 25, 2023. FINDINGS: There is a plantar calcaneal spur. Degenerative changes of the tarsal bones. Normal metatarsi. The patient is status post amputation of the great toe. Overlying soft tissue swelling with air in the soft tissues suggestive of possible ulceration overlying the distal portion of the first metatarsal. There is been resorption of the distal phalanx of the fourth digit with overlying soft tissue swelling as well as the distal phalanx of the third digit suggestive of possible osteomyelitis. Normal interphalangeal joints and phalanges of the lesser toes. Diffuse soft tissue swelling. RAD/Foot min 3 Views IMPRESSION: Status post amputation of the great toe with overlying soft tissue swelling and possible ulceration. Findings suggestive of a osteomyelitis with destruction of the distal phalanx of the third and fourth toes. Electronically Signed: Shorty Elizabeth MD at 14:59 EDT ,
== END | disposition home or self-care (01) ==
PROVIDERS: PCP Family Medicine; Referring Provider Podiatrist; Visit Provider Podiatrist
DX: L97.923 Non-pressure chronic ulcer of unspecified part of left lower leg with necrosis of muscle (principal)
CPT/HCPCS: 73630

== ENCOUNTER → 2024-06-21 | Outpatient (CLI) | payer MEDICARE, OTHER, SELFPAY ==
[2024-06-21 14:21] LABS: Hematocrit 33.8 % (40-54); Hemoglobin 12.2 g/dL (13.0-16.5); Mean Corp Hgb Conc 36.1 g/dL (32-36); Mean Corpuscular Hgb 35.7 pg (27.0-32.0); Mean Corpuscular Volume 98.8 fL (80-94); Platelet Count 275 K/mm3 (150-450); RBC Distribution Width CV 13.6 % (11.6-14.6); RBC Distribution Width SD 46.9 fl (35.1-43.9); Red Blood Count 3.42 M/mm3 (4.6-6.2); White Blood Count 8.3 K/mm3 (4.4-11.0)
[2024-06-21 14:35] LABS: Anion Gap 6 (5-15); BUN 30 mg/dL (7-18); BUN/Creat Ratio 20.5 RATIO (10-20); Calcium,Total 9.7 mg/dL (8.5-10.1); Chloride 108 mmol/L (98-107); Creatinine, Serum 1.46 mg/dL (0.70-1.30); EST Glomerular Filtration Rate 49 mL/min (>60); Est Glom Filt Rate - Afr Amer 60 mL/min (>60); Glucose 167 mg/dL (74-106); Potassium 4.2 mmol/L (3.5-5.1); Sodium Level 140 mmol/L (136-145)
== END | disposition home or self-care (01) ==
PROVIDERS: PCP Family Medicine; Referring Provider Internal Medicine Cardiovascular Disease; Visit Provider Internal Medicine Cardiovascular Disease
DX: I48.91 Unspecified atrial fibrillation (principal); Z79.899 Other long term (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
CPT/HCPCS: 36415; 80048; 85027

== ENCOUNTER 2024-06-29 09:58 | Outpatient (CLI) | payer MEDICARE, OTHER, SELFPAY ==
[2024-06-29 10:13] VITALS: BP 114/65; PULSE 78; RESP 16; TEMP 36.2; O2SAT 96; BMI 26.7
[2024-06-29] MEDS: DiphenhydrAMINE 50 MG/ML Syringe 12.5 MG IV (10:30)
[2024-06-29] MEDS: INFLIXIMAB DYYB IV (11:04)
[2024-06-29] MEDS: NORMAL SALINE 0.9% IV (11:04)
[2024-06-29 13:11] VITALS: BP 119/69; PULSE 74; RESP 16
== END 2024-06-29 23:59 | disposition home or self-care (01) ==
LOC: MEDOUTP 09:58
PROVIDERS: PCP Family Medicine; Referring Provider Internal Medicine Rheumatology; Visit Provider Internal Medicine Rheumatology
DX: L40.52 Psoriatic arthritis mutilans (principal); M50.90 Cervical disc disorder, unspecified, unspecified cervical region; M17.0 Bilateral primary osteoarthritis of knee; L40.3 Pustulosis palmaris et plantaris; L85.3 Xerosis cutis; L21.9 Seborrheic dermatitis, unspecified; Z79.1 Long term (current) use of non-steroidal anti-inflammatories (NSAID); Z79.899 Other long term (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
CPT/HCPCS: 96413; 96415; 96375; J7050; A4216; Q5103

== ENCOUNTER → 2024-07-27 | Outpatient (CLI) | payer MEDICARE, OTHER, SELFPAY ==
[2024-07-27 14:55] LABS: Absolute Lymphocyte Count 1.01 X10^3/uL (0.83-4.51); Absolute Neutrophil Count 2.5 X10^3/uL (2.0-7.7); Basophil# 0.04 X10^3/uL; Basophil% 0.9 % (0-1); Eosinophil# 0.47 X10^3/uL; Eosinophils% 10.4 % (0-5); Hematocrit 33.9 % (40-54); Hemoglobin 11.4 g/dL (13.0-16.5); Lymphocyte # 1.01 X10^3/ul (0.83-4.51); Lymphocyte % 22.2 % (19-41); Mean Corp Hgb Conc 33.6 g/dL (32-36); Mean Corpuscular Hgb 33.5 pg (27.0-32.0); Mean Corpuscular Volume 99.7 fL (80-94); Mean Platelet Vol. 10.5 fl (6.2-12.0); Monocyte# 0.47 X10^3/uL; Monocyte% 10.4 % (0-10); NRBC Flagged by Analyzer 0 % (0-5); Neutrophil # 2.53 X10^3/uL (2.7-7.7); Neutrophil % 55.7 % (47-70); Platelet Count 209 K/mm3 (150-450); RBC Distribution Width CV 14.6 % (11.6-14.6); RBC Distribution Width SD 50.9 fl (35.1-43.9); White Blood Count 4.5 K/mm3 (4.4-11.0)
== END | disposition home or self-care (01) ==
LOC: LAB 13:29
PROVIDERS: Nurse Practitioner Gerontology; PCP Family Medicine; Referring Provider Internal Medicine Cardiovascular Disease; Visit Provider Internal Medicine Cardiovascular Disease
DX: Z79.01 Long term (current) use of anticoagulants (principal)
CPT/HCPCS: 36415; 85025

== ENCOUNTER 2024-08-06 14:00 | Outpatient (RCR) | payer MEDICARE, OTHER, SELFPAY ==
--- NOTE | 2024-06-05 16:23 | HP.PTEVAL_ITS ---
Patient's Visit Information Visit Information Visit Information: YESSI GRACE is a 78 year old M referred to Physical Therapy by Dr. Jose Pearce DO with a diagnosis of Right Knee Pain. Date of Evaluation: 06/05/24 Physical Therapist: Antonieta Kam DPT Visit Plan Frequency: 2x /Week Duration: 4 Weeks Plan: Patellar Tracking- Hip, Core Strength/Stabilization- Hamstring Flexibility- Proprioception. HEP Given IE: Quad set, sit to stand, TKE, hamstring stretch Subjective Subjective: Right knee issues for a few years- gradual insidious onset. He does not describe it as pain. If he is standing for less than 2 min the right will shift and he feels unstable. He has not had any falls. He had an x-ray which showed bone one bone on one side. MD does not think a brace will work and sent him to PT. If he does nothing it just keeps doing it. If he starts walking it feels better or if he sits down its better. Normally he goes the [employer] and uses the resistance machines- in February- but has not noticed a difference but mostly doing arm exercises. Balance exercises he does daily are tandem stance, squatting, etc.. he has not noticed that they bother his knee. Sleep: no changes. Only does it when he weight bears on it. PMHx/Meds: no changes since he saw them- Left toe amputation- still healing. Objective Objective: Posture: forward head, rounded shoulders- can correct but does not maintain Gait: toed turned out- slow laisha- decreased step length HR/TR: able with decreased TR SLS: weight shift only ROM: WFL in all planes of the LE Strength: Core: fair, Hip: Flexion: 4-/5, Quad set: slightly painful, Ext: 4/5, Add: 4+/5 Abd: 4/5, IR/ER: 4/5, Knee: Extn: Right: 55 left: 46 Flexion: Left: 35 Right: 34. Ankle: 5/5 Flex: HS: severe, Gastroc: severe Special Tests: poor patellar tracking Palpation: not tender to touch Balance/Special Test Scores Lower Extremity Functional Score: 53 Goals Goal 1:: Patient will be I with HEP and progression Goal Time Frame: 4-6 Weeks Goal 2:: Patient will report no dislocation of his right knee Goal Time Frame: 4-6 Weeks Goal 3:: Patient will demo normal patellar tracking Goal Time Frame: 4-6 Weeks Goal 4:: Patient will report 80% improvement Goal Time Frame: 4-6 Weeks Rehabilitation Potential Physical Therapy Diagnosis: Patient presents with decreased LE and core strength/stabilization, proprioception, flex and muscular endurance leading to poor patellar tracking and decreased ability to perform ADL's. Rehabilitation Potential: Good Anticipated Interventions Patient/Client Instruction: Educate patient on: Benefits of Fitness Program Therapeutic Exercise to Include: Strength training, Endurance training, Balance training, Agility training, Body mechanics, Postural training, Flexibilty training, Gait and locomotor training, Neuromotor development, Dynamic Lumbar Stabilization and Scapular Strength/Stabilization Text: Thank you for the opportunity to evaluate your patient. For Medicare and Medicare HMO plans, please review the plan of care and approve it. It will need to be FAXED BACK to us at [phone] for Medicare purposes. For Medicare only, by signing this I certify the plan of care. Please let me know if there are questions or concerns regarding this plan of care. Physician Signature: Date:
--- NOTE | 2024-07-18 16:14 | HP.PTREVAL ---
Re-Evaluation Intro: Dr. Jose Pearce, DO, It has been my pleasure to treat YESSI GRACE over the last 9 visits for Right Knee Pain. Please see the progress note below for an update on the physical therapy plan of care! Subjective Subjective: Pt reports that both knees are weak but the R is worse standing still. He feels that his balance is better and that was a big benefit. He has no pain. He still struggles with standing in one spot (something shifts in there). Objective Objective/Function: Pt has popping with PROM of the R LE... no pain. He has B LE swelling. He seems unsteady when he first stands up. Plan Plan Plan: 1X/ weej for 3 more weeks. Patellar Tracking- Hip, Core Strength/Stabilization- Hamstring Flexibility- Proprioception. HEP Given IE: Quad set, sit to stand, TKE, hamstring stretch Balance/Gait/Functional tests Balance/Special Test Scores Lower Extremity Functional Score: 49 Goals Goals Goal 1:: Patient will be I with HEP and progression Goal Time Frame: 4-6 Weeks Goal Progress: Goal Met Goal 2:: Patient will report no dislocation of his right knee Goal Time Frame: 4-6 Weeks Goal Progress: Goal Met Goal 3:: Patient will demo normal patellar tracking Goal Time Frame: 4-6 Weeks Goal 4:: Patient will report 80% improvement Goal Time Frame: 4-6 Weeks Goal Progress: Progressing Anticipated Interventions Anticipated Interventions Patient/Client Instruction: Educate patient on: Benefits of Fitness Program Therapeutic Exercise to Include: Strength training, Endurance training, Balance training, Agility training, Body mechanics, Postural training, Flexibilty training, Gait and locomotor training, Neuromotor development, Dynamic Lumbar Stabilization and Scapular Strength/Stabilization Re-Evaluation Ending Re-evaluation ending: Please do not hesitate to contact me at [phone] by phone or if you have questions or concerns regarding this new plan of care! Sincerely, Ana María Antony, SIMEON
--- NOTE | 2024-08-06 14:48 | HP.PTDCSUM ---
Discharge Summary D/C summary: It has been my pleasure to treat YESSI GRACE referred by Dr. Jose Pearce DO, with the diagnosis of Right Knee Pain for a total of 12 visit(s). Discharge Date: 08/06/24 Please see the following information for a summary of their discharge status. Subjective Subjective: Pt reports that his knee is off and on pain. The pain is very light. Walking makes it worse. His balance is even better. He has exercises that his is doing at home. He will still have some locking or his knee will move out of place if he stands in one place too long like shaving so he tries not to stand on his leg too long Overall Improvement % Improvement: 80 Objective Objective/Function: Pt slow to sit to stand and make sure he has his balance before walking. Walks with flexed trunk and shorter strides. Goals Goal 1:: Patient will be I with HEP and progression Goal Progress: Goal Met Goal 2:: Patient will report no dislocation of his right knee Goal Progress: Goal Met Goal 3:: Patient will demo normal patellar tracking Goal Progress: Progressing Goal 4:: Patient will report 80% improvement Goal Progress: Goal Met Plan Plan: DC PT to HEP HEP Given IE: Quad set, sit to stand, TKE, hamstring stretch D/C Information Discharge Comments: DC PT to HEP d/c sentence: If there are questions or concerns regarding this patient's physical therapy, please feel free to call me at [phone]. Thank you for the referral of this patient. Sincerely, Ana María Antony, MPT Balance/Gait/Functional tests Balance/Special Test Scores Lower Extremity Functional Score: 54 Improvement % Improvement: 80
== END 2024-08-06 19:00 | disposition home or self-care (01) ==
LOC: PT 14:00
PROVIDERS: PCP Family Medicine; Referring Provider Orthopaedic Surgery; Visit Provider Orthopaedic Surgery
DX: M17.11 Unilateral primary osteoarthritis, right knee (principal); M25.361 Other instability, right knee
CPT/HCPCS: 97110; 97162; 97530

== ENCOUNTER 2024-08-10 09:53 | Outpatient (CLI) | payer MEDICARE, OTHER, SELFPAY ==
[2024-08-10 10:11] VITALS: BP 154/86; PULSE 85; RESP 16; O2SAT 100; BMI 29.1
[2024-08-10] MEDS: DiphenhydrAMINE 50 MG/ML Syringe 25 MG IV (10:14)
[2024-08-10] MEDS: 0.9% NaCl Peripheral Flush Adult/Peds IV (10:20)
[2024-08-10] MEDS: INFLIXIMAB DYYB IV (10:50)
[2024-08-10] MEDS: NORMAL SALINE 0.9% IV (10:50)
== END 2024-08-10 23:59 | disposition home or self-care (01) ==
LOC: MEDOUTP 09:53
PROVIDERS: PCP Family Medicine; Referring Provider Internal Medicine Rheumatology; Visit Provider Internal Medicine Rheumatology
DX: L40.52 Psoriatic arthritis mutilans (principal); M50.90 Cervical disc disorder, unspecified, unspecified cervical region; M17.0 Bilateral primary osteoarthritis of knee; L40.3 Pustulosis palmaris et plantaris; L85.3 Xerosis cutis; L21.9 Seborrheic dermatitis, unspecified; Z79.1 Long term (current) use of non-steroidal anti-inflammatories (NSAID); Z79.899 Other long term (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; Z79.631 Long term (current) use of antimetabolite agent
CPT/HCPCS: 96375; 96365; 96366; 96413; 96415; A4216; Q5103

== ENCOUNTER 2024-08-22 12:28 | Outpatient (RCR) | payer MEDICARE, OTHER, SELFPAY ==
[2024-08-22 13:20] LABS: Absolute Lymphocyte Count 1.01 X10^3/uL (0.83-4.51); Absolute Neutrophil Count 3.8 X10^3/uL (2.0-7.7); Basophil# 0.05 X10^3/uL; Basophil% 0.8 % (0-1); Eosinophils% 9.5 % (0-5); Hemoglobin 11.4 g/dL (13.0-16.5); Lymphocyte # 1.01 X10^3/ul (0.83-4.51); Mean Corp Hgb Conc 33.5 g/dL (32-36); Mean Corpuscular Hgb 33.5 pg (27.0-32.0); Mean Platelet Vol. 10.5 fl (6.2-12.0); Monocyte# 0.81 X10^3/uL; Monocyte% 12.8 % (0-10); NRBC Flagged by Analyzer 0 % (0-5); Neutrophil # 3.81 X10^3/uL (2.7-7.7); Neutrophil % 60.1 % (47-70); Platelet Count 192 K/mm3 (150-450); RBC Distribution Width CV 14.7 % (11.6-14.6); RBC Distribution Width SD 52.3 fl (35.1-43.9); White Blood Count 6.3 K/mm3 (4.4-11.0)
[2024-08-22 13:44] LABS: Erythrocyte Sedimentation Rate 2 mm/hr (0-20)
[2024-08-22 14:06] LABS: AST(SGOT) 23 U/L (15-37); Alanine Aminotransfer ALT/SGPT 27 U/L (16-61); CRP < 2.90 mg/L (0.0-3.0); Creatinine, Serum 1.53 mg/dL (0.70-1.30); EST Glomerular Filtration Rate 47 mL/min (>60); Est Glom Filt Rate - Afr Amer 56 mL/min (>60)
== END 2024-08-22 18:00 | disposition home or self-care (01) ==
LOC: LAB 12:28
PROVIDERS: PCP Family Medicine; Referring Provider Internal Medicine Rheumatology; Visit Provider Internal Medicine Rheumatology
DX: L40.50 Arthropathic psoriasis, unspecified (principal); L40.52 Psoriatic arthritis mutilans; L40.9 Psoriasis, unspecified; R94.4 Abnormal results of kidney function studies; Z79.1 Long term (current) use of non-steroidal anti-inflammatories (NSAID); Z85.828 Personal history of other malignant neoplasm of skin; Z87.39 Personal history of other diseases of the musculoskeletal system and connective tissue; Z79.899 Other long term (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; Z79.631 Long term (current) use of antimetabolite agent; M50.90 Cervical disc disorder, unspecified, unspecified cervical region; M17.0 Bilateral primary osteoarthritis of knee; Z79.620 Long term (current) use of immunosuppressive biologic
CPT/HCPCS: 36415; 82565; 84450; 84460; 85025; 85652; 86140

== ENCOUNTER → 2024-09-07 | Outpatient (CLI) | payer MEDICARE, OTHER, SELFPAY ==
[2024-09-07 12:07] LABS: Bacteria 0 SEEN /hpf (None Seen); Mucous, Urine 0 SEEN /hpf (<or=2+); Red Blood Cells-Urine 0 SEEN /hpf (0-5); Squamous Epithelial Cells - UA 0 SEEN /hpf (0-5); White Blood Cells 0 SEEN /hpf (0-5)
[2024-09-07 12:34] LABS: Color, Urine Yellow (Yellow); Glucose, Dipstick Normal (Normal); Ketone-Dipstick Negative (Negative); Leukocyte Esterase-Dipstick Negative /ul (Negative); Nitrite-Dipstick Negative (Negative); Occult Blood-Urine Negative /ul (Negative); Protein-Dipstick 30 mg/dl (Negative); Specific Gravity, Urine 1.015 (1.002-1.030); Urine Bilirubin Dipstick Negative (Negative); Urine Clarity Clear (Clear); Urine Urobilinogen Normal (Normal); Urine pH 6.5 (5.0 - 8.0)
[2024-09-07 13:06] LABS: BUN 26 mg/dL (7-18); EST Glomerular Filtration Rate 52 mL/min (>60); Est Glom Filt Rate - Afr Amer 63 mL/min (>60)
== END | disposition home or self-care (01) ==
LOC: LAB 11:39
PROVIDERS: PCP Family Medicine; Referring Provider Internal Medicine Rheumatology; Visit Provider Internal Medicine Rheumatology
DX: R94.4 Abnormal results of kidney function studies (principal)
CPT/HCPCS: 36415; 81001; 82565; 84520

== ENCOUNTER 2024-09-28 10:27 | Outpatient (CLI) | payer MEDICARE, OTHER, SELFPAY ==
[2024-09-28 10:58] VITALS: BP 141/80; PULSE 79; RESP 16; TEMP 36.3; O2SAT 99; BMI 29.1
[2024-09-28] MEDS: DiphenhydrAMINE 50 MG/ML Syringe 12.5 MG IV (11:29)
[2024-09-28] MEDS: NORMAL SALINE 0.9% IV (11:44)
[2024-09-28] MEDS: INFLIXIMAB DYYB IV (11:44)
== END 2024-09-28 23:59 | disposition home or self-care (01) ==
LOC: MEDOUTP 10:27
PROVIDERS: PCP Family Medicine; Referring Provider Internal Medicine Rheumatology; Visit Provider Internal Medicine Rheumatology
DX: L40.52 Psoriatic arthritis mutilans (principal); M50.90 Cervical disc disorder, unspecified, unspecified cervical region; M17.0 Bilateral primary osteoarthritis of knee; L40.3 Pustulosis palmaris et plantaris; L85.3 Xerosis cutis; L21.9 Seborrheic dermatitis, unspecified; Z79.1 Long term (current) use of non-steroidal anti-inflammatories (NSAID); Z79.899 Other long term (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
CPT/HCPCS: 96413; 96415; J7050; A4216; Q5103

== ENCOUNTER 2024-09-30 18:04 | Emergency (ER) | payer MEDICARE, OTHER, SELFPAY ==
[2024-09-30 18:05] VITALS: BP 160/85; PULSE 87; RESP 18; TEMP 36.1; O2SAT 99; BMI 29.5
[2024-09-30] MEDS: Doxycycline 100 MG CAPSULE PO (18:48)
--- NOTE | 2024-09-30 19:05 | EDS_ITS ---
HPI History of Present Illness Chief Complaint: Cellulitis Narrative Narrative: Patient is a 79-year-old male with past medical history of hypertension, glaucoma, RAJESH, atrial fibrillation on Eliquis, diabetes, neuropathy, osteomyelitis involving the foot and ankle who presents to the emergency department with a chief complaint of concern for cellulitis to left foot. He states that he noted that he developed some redness and warmth to his left dorsal aspect of his left foot yesterday and feels that may be spreading therefore he came here for further evaluation management. Patient states that he is not on any antibiotics and notes that he did not have any injuries. [facility] Medical History Hypertension, well controlled Amputation toe Cataract Glaucoma CPAP (continuous positive airway pressure) dependence Sleep apnea Asthma Atrial fibrillation Nonhealing nonsurgical wound with fat layer exposed Essential hypertension RAJESH (obstructive sleep apnea) Ectopic atrial tachycardia Paroxysmal ventricular tachycardia Premature atrial contractions Cellulitis Psoriasis Arthritis Shortness of breath Hyperlipidemia Hypertension Premature ventricular contraction Supraventricular tachycardia Long-term use of high-risk medication Body mass index 31.0-31.9, adult Diabetes mellitus Secondary pulmonary arterial hypertension Methicillin susceptible Staphylococcus aureus infection Acute osteomyelitis involving ankle and foot Chronic osteomyelitis involving ankle and foot Home Medications ?Medication ?Instructions ?Recorded ?Last Taken ?Type finasteride 5 mg tablet 5 mg PO DAILY prostate 02/03/16 Unknown History metformin 1,000 mg tablet 1,000 mg PO BIDCM dm 02/03/16 02/25/23 History tamsulosin 0.4 mg capsule 0.4 mg PO QHS prostate 02/03/16 02/24/23 History fluticasone propionate 50 2 spray NASAL DAILY PRN Nasal 06/30/18 Unknown History mcg/actuation nasal Congestion spray,suspension methotrexate sodium 2.5 mg tablet 7.5 mg PO Q7D arthritis 06/30/18 02/23/23 History pyridoxine (vitamin B6) 50 mg 100 mg PO QHS supplement 06/30/18 02/24/23 History tablet multivitamin with folic acid 400 1 tab PO DAILY supplement 10/20/18 02/25/23 History mcg tablet oxybutynin chloride 5 mg 5 mg PO QHS bladder 10/20/18 02/24/23 History tablet,extended release 24 hr folic acid 1 mg tablet 4 mg PO DAILY supplement 06/01/19 Unknown History glucosamine HCl 1,500 mg tablet 1,500 mg PO BID supplemt 02/20/20 02/25/23 History infliximab-dyyb 100 mg intravenous 100 mg IV UD psoriatic arthritis 05/30/20 05/27/23 History solution (Inflectra) cyanocobalamin (vitamin B-12) 100 500 mcg PO DAILY supplement 12/01/20 02/25/23 History mcg tablet hydrochlorothiazide 25 mg tablet 25 mg PO DAILY #90 tabs 02/24/23 02/25/23 Rx sulindac 200 mg tablet 200 mg PO BID 11/11/23 Unknown History lisinopril 40 mg tablet 40 mg PO DAILY #90 tabs 11/28/23 Unknown Rx amlodipine 2.5 mg tablet 2.5 mg PO DAILY #90 tabs 04/10/24 Unknown Rx metoprolol succinate 100 mg 100 mg PO BID bp/heart #180 tabs 04/10/24 Unknown Rx tablet,extended release 24 hr pravastatin 40 mg tablet 40 mg PO QHS cholesterol #90 tabs 04/10/24 Unknown Rx cholecalciferol (vitamin D3) 25 25 mcg PO BID supplement 06/20/24 Unknown History mcg (1,000 unit) tablet ginkgo biloba leaf extract 60 mg 60 mg PO DAILY 06/20/24 Unknown History capsule glipizide 10 mg tablet 10 mg PO DAILY dm 06/20/24 Unknown History potassium chloride 20 mEq 20 meq PO DAILY 06/20/24 Unknown History tablet,extended release(part/cryst) (Klor-Con M) apixaban 2.5 mg tablet 2.5 mg PO BID #180 tabs 07/30/24 Unknown Rx doxycycline hyclate 100 mg capsule 100 mg PO BID 7 days #14 caps 09/30/24 Unknown Rx ondansetron 4 mg disintegrating 4 mg PO Q6H PRN nausea and 09/30/24 Unknown Rx tablet vomiting #14 tabs Allergy/AdvReac Type Severity Reaction Status Date / Time cephalexin (From Keflex) Allergy Severe rash Verified 09/30/24 18:05 sulfamethoxazole (From Allergy Severe Rash Verified 09/30/24 18:05 Bactrim) trimethoprim (From Bactrim) Allergy Severe Rash Verified 09/30/24 18:05 Penicillins Allergy Rash Verified 09/30/24 18:05 doxycycline AdvReac Severe GI upset Verified 09/30/24 18:05 levofloxacin (From Levaquin) AdvReac Other Verified 09/30/24 18:05 Family History Father Cancer Prostate Mother Depression Uncle Myocardial infarction Son CVA (cerebral vascular accident) Surgical History History of bilateral cataract extraction History of foot surgery (~02/2023) excision of skin cancer History of hammer toe correction (09/26/20) History of partial amputation of toe History of hernia repair History of tonsillectomy and adenoidectomy Social History Smoking Status: Former smoker pack-years: 30 alcohol intake: current alcohol intake frequency: holidays/special occasions only substance use type: does not use caffeine: Yes Type: coffee Number of servings: 2 what type of physical activity do you participate in: running and weight training frequency: 1-2 times per week ROS ROS ED ROS Narrative Constitutional: Denies any fevers, chills, headaches, lightness, dizziness Eyes: Denies change in vision double vision blurry vision Cardiovascular: Denies chest pain or palpitation Respiratory: denies coughing wheezing shortness of breath Abdomen: Denies nausea vomit diarrhea : Denies urinary symptoms Neurological: Patient states that he has neuropathy in his legs bilaterally from his diabetes denies any new numbness or tingling Musculoskeletal: Denies back pain Skin: Complains of left foot cellulitis as noted above EXAM Physical Exam Narrative Exam Narrative: General: Patient lying in bed rest comfortably did not appear to be in acute distress Head: Atraumatic, normocephalic Eyes: PERRL bilateral, EOMI bilateral no conjunctival injection noted Neck: Soft, supple, trach midline Cardiovascular: Regular rate and rhythm no murmurs gallops rubs noted Respiratory: Clear to auscultation bilaterally no rales rhonchi or wheeze noted Extremities: 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 DP pulses +2/4 in the bilateral lower extremities, +4/5 strength noted in the bilateral upper and lower extremities, patient has swelling bilaterally in his lower extremities and for member bedside states that he has had this ever since starting Eliquis Neurological: Patient following commands knew he was at [facility] years 2023, sensation decreased in the bilateral lower extremity secondary to the neuropathy which she states is chronic this is not new Skin: Patient has erythema and warmth to the dorsal aspect of his left foot as well as lower left montanez consistent with cellulitis. No petechia no purpura no sloughing of the skin noted Const Vital Signs: 09/30/24 18:05 Temperature 96.9 F L Temperature Source Temporal Pulse Rate 87 Respiratory Rate 18 Blood Pressure 160/85 H Blood Pressure Mean 110 Pulse Ox 99 Oxygen Delivery Method Room Air MDM MDM MDM Narrative Medical decision making narrative: Patient is a 79-year-old male who presented to the emerged part with a chief complaint of concern for left foot cellulitis. Patient does appear to have left foot cellulitis noted on exam. On the differential diagnose includes but limited to cellulitis, erysipelas. Patient will be given a dose of doxycycline here in the emergency department as he states that he has tolerated this in the past. Will send a prescription for doxycycline to the pharmacy. He is advised to keep his appointment with his physician on Tuesday and his radar systems engineer on Tuesday and to go to those appointments. He is advised to return with worsening fevers, redness while on antibiotics or any other concerns. He and his significant other at bedside are agreeable to this plan they would like to go home all question concerns answered he was discharged home in stable condition. Discharge Plan Triage Chief Complaint: Cellulitis ED Provider: Bhanu Lopes Dx/Rx/DC Orders Clinical Impression: Cellulitis of foot, left Prescriptions: New doxycycline hyclate 100 mg capsule 100 mg PO BID 7 Days Qty: 14 0RF ondansetron 4 mg tablet,disintegrating 4 mg PO Q6H PRN (Reason: nausea and vomiting) Qty: 14 0RF No Action Inflectra 100 mg recon soln 100 mg IV UD Patient Comments: IV Rx Instructions: 8 MG/KG, [id number] glucosamine HCl 1,500 mg tablet 1,500 mg PO BID Rx Instructions: administer with a meal cyanocobalamin (vitamin B-12) 100 mcg tablet 500 mcg PO DAILY glipizide 10 mg tablet 10 mg PO DAILY cholecalciferol (vitamin D3) 25 mcg (1,000 unit) tablet 25 mcg PO BID potassium chloride [Klor-Con M20] 20 mEq tablet,ER particles/crystals 20 meq PO DAILY ginkgo biloba leaf extract 60 mg capsule 60 mg PO DAILY Rx Instructions: give with meal/snack tamsulosin 0.4 MG capsule 0.4 mg PO QHS metformin 1,000 MG tablet 1,000 mg PO BIDCM finasteride 5 MG tablet 5 mg PO DAILY methotrexate sodium 2.5 MG tablet 7.5 mg PO Q7D pyridoxine (vitamin B6) 50 MG tablet 100 mg PO QHS fluticasone propionate 1 SPRAY spray,suspension 2 spray NASAL DAILY PRN (Reason: Nasal Congestion) folic acid 1 mg tablet 4 mg PO DAILY oxybutynin chloride 5 MG tablet 5 mg PO QHS multivitamin with folic acid 1 TABLET tablet 1 tab PO DAILY sulindac 200 mg tablet 200 mg PO BID hydrochlorothiazide 25 mg tablet 25 mg PO DAILY Qty: 90 3RF lisinopril 40 mg tablet 40 mg PO DAILY Qty: 90 3RF amlodipine 2.5 mg tablet 2.5 mg PO DAILY Qty: 90 3RF metoprolol succinate 100 mg tablet extended release 24 hr 100 mg PO BID Qty: 180 3RF pravastatin 40 mg tablet 40 mg PO QHS Qty: 90 3RF Eliquis 2.5 mg tablet 2.5 mg PO BID Qty: 180 3RF Patient Comments: taking 2.5mg bid Primary Care Provider: Jose Turner Referrals: Jose Turner MD [Primary Care Provider] - Activity Restrictions/Additional Instructions: Follow-up with your primary care physician and your radar systems engineer at your next scheduled appointment. Return with worsening symptoms or other concerns. Take antibiotics as prescribed and use the Zofran as needed for nausea. Return for worsening redness that is spreading while on antibiotics. Print Language: Danish Disposition Disposition: Home, Self Care
[2024-09-30 19:19] VITALS: BP 148/87; PULSE 85; RESP 19; TEMP 36.8; O2SAT 97
== END 2024-09-30 19:20 | disposition home or self-care (01) ==
PROVIDERS: Emergency Provider Emergency Medicine; PCP Family Medicine; Visit Provider Emergency Medicine
DX: E11.628 Type 2 diabetes mellitus with other skin complications (principal); I48.91 Unspecified atrial fibrillation; E11.40 Type 2 diabetes mellitus with diabetic neuropathy, unspecified; L03.116 Cellulitis of left lower limb; I10 Essential (primary) hypertension; E78.5 Hyperlipidemia, unspecified; Z89.421 Acquired absence of other right toe(s); Z89.422 Acquired absence of other left toe(s); Z79.01 Long term (current) use of anticoagulants; Z79.84 Long term (current) use of oral hypoglycemic drugs; Z79.899 Other long term (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; Z87.891 Personal history of nicotine dependence
CPT/HCPCS: 99282; A4216

== ENCOUNTER → 2024-10-02 | Outpatient (CLI) | payer MEDICARE, OTHER, SELFPAY ==
[2024-10-02 17:41] LABS: Erythrocyte Sedimentation Rate 16 mm/hr (0-20)
[2024-10-02 18:11] LABS: CRP 9.97 mg/L (0.0-3.0)
== END | disposition home or self-care (01) ==
LOC: MFPLAB 14:44
PROVIDERS: PCP Family Medicine; Visit Provider Family Medicine
DX: L03.116 Cellulitis of left lower limb (principal)
CPT/HCPCS: 36415; 85652; 86140

== ENCOUNTER → 2024-10-08 | Outpatient (CLI) | payer MEDICARE, OTHER, SELFPAY ==
[2024-10-08 15:40] LABS: Anion Gap 8 (5-15); BUN 28 mg/dL (7-18); Chloride 106 mmol/L (98-107); EST Glomerular Filtration Rate 52 mL/min (>60); Est Glom Filt Rate - Afr Amer 63 mL/min (>60); Glucose 169 mg/dL (74-106); Potassium 4.1 mmol/L (3.5-5.1); Sodium Level 140 mmol/L (136-145)
== END | disposition home or self-care (01) ==
LOC: MFPLAB 11:38
PROVIDERS: PCP Family Medicine; Visit Provider Family Medicine
DX: M79.89 Other specified soft tissue disorders (principal)
CPT/HCPCS: 36415; 80048

== ENCOUNTER → 2024-10-30 | Outpatient (CLI) | payer MEDICARE, OTHER, SELFPAY ==
[2024-10-30 18:26] LABS: ALB/GLOB Ratio 0.8 RATIO (0.9-2.4); AST(SGOT) 26 U/L (15-37); Alanine Aminotransfer ALT/SGPT 31 U/L (16-61); Albumin, Serum 3.4 g/dL (3.2-5.0); Alkaline Phosphatase 110 U/L (45-117); Anion Gap 5 (5-15); BUN 22 mg/dL (7-18); BUN/Creat Ratio 16.2 RATIO (10-20); Calcium,Total 9.8 mg/dL (8.5-10.1); Chloride 106 mmol/L (98-107); Creatinine, Serum 1.36 mg/dL (0.70-1.30); EST Glomerular Filtration Rate 53 mL/min (>60); Est Glom Filt Rate - Afr Amer 65 mL/min (>60); Globulin 4.2 g/dL (2.2-4.2); Glucose 195 mg/dL (74-106); Potassium 3.9 mmol/L (3.5-5.1); Protein, Total 7.6 g/dL (6.4-8.2); Sodium Level 138 mmol/L (136-145)
== END | disposition home or self-care (01) ==
LOC: MFPLAB 16:47
PROVIDERS: PCP Family Medicine; Referring Provider Family Medicine; Visit Provider Family Medicine
DX: M79.89 Other specified soft tissue disorders (principal)
CPT/HCPCS: 36415; 80053

== ENCOUNTER 2024-11-09 09:54 | Outpatient (CLI) | payer MEDICARE, OTHER, SELFPAY ==
[2024-11-09 10:14] VITALS: BP 116/68; PULSE 84; RESP 16; TEMP 36.1; O2SAT 97; BMI 27.7
[2024-11-09] MEDS: DiphenhydrAMINE 50 MG/ML Syringe 12.5 MG IV (10:29)
[2024-11-09] MEDS: NORMAL SALINE 0.9% IV (11:06)
[2024-11-09] MEDS: INFLIXIMAB DYYB IV (11:06)
== END 2024-11-09 23:59 | disposition home or self-care (01) ==
LOC: MEDOUTP 09:55
PROVIDERS: PCP Family Medicine; Referring Provider Internal Medicine Rheumatology; Visit Provider Internal Medicine Rheumatology
DX: L40.52 Psoriatic arthritis mutilans (principal); M50.90 Cervical disc disorder, unspecified, unspecified cervical region; M17.0 Bilateral primary osteoarthritis of knee; L40.3 Pustulosis palmaris et plantaris; L85.3 Xerosis cutis; L21.9 Seborrheic dermatitis, unspecified; Z79.1 Long term (current) use of non-steroidal anti-inflammatories (NSAID); Z79.899 Other long term (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; Z79.631 Long term (current) use of antimetabolite agent
CPT/HCPCS: 96413; 96415; 96375; A4216; Q5103

== ENCOUNTER 2024-12-25 10:04 | Outpatient (CLI) | payer MEDICARE, OTHER, SELFPAY ==
[2024-12-25 10:15] VITALS: BP 144/79; PULSE 79; RESP 16; TEMP 36.3; O2SAT 98; BMI 25.6
[2024-12-25] MEDS: DiphenhydrAMINE 50 MG/ML Syringe 12.5 MG IV (11:36)
[2024-12-25] MEDS: INFLIXIMAB DYYB IV (11:49)
[2024-12-25] MEDS: NORMAL SALINE 0.9% IV (11:49)
== END 2024-12-25 23:59 | disposition home or self-care (01) ==
LOC: MEDOUTP 10:04
PROVIDERS: PCP Family Medicine; Referring Provider Internal Medicine Rheumatology; Visit Provider Internal Medicine Rheumatology
DX: L40.52 Psoriatic arthritis mutilans (principal); Z79.1 Long term (current) use of non-steroidal anti-inflammatories (NSAID); Z79.899 Other long term (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; M50.90 Cervical disc disorder, unspecified, unspecified cervical region; M17.0 Bilateral primary osteoarthritis of knee; L40.3 Pustulosis palmaris et plantaris; L85.3 Xerosis cutis; Z79.631 Long term (current) use of antimetabolite agent; L21.9 Seborrheic dermatitis, unspecified
CPT/HCPCS: 96413; 96415; Q5103

== ENCOUNTER 2025-02-21 09:54 | Outpatient (CLI) | payer MEDICARE, OTHER, SELFPAY ==
[2025-02-21 09:58] VITALS: BP 111/65; PULSE 71; RESP 16; TEMP 36; O2SAT 100; BMI 24.8
[2025-02-21] MEDS: DiphenhydrAMINE 50 MG/ML Syringe 12.5 MG IV (10:10)
[2025-02-21] MEDS: INFLIXIMAB DYYB IV (10:50)
[2025-02-21] MEDS: NORMAL SALINE 0.9% IV (10:50)
== END 2025-02-21 23:59 | disposition home or self-care (01) ==
LOC: MEDOUTP 09:54
PROVIDERS: PCP Family Medicine; Referring Provider Internal Medicine Rheumatology; Visit Provider Internal Medicine Rheumatology
DX: L40.52 Psoriatic arthritis mutilans (principal); M50.90 Cervical disc disorder, unspecified, unspecified cervical region; M17.0 Bilateral primary osteoarthritis of knee; L40.3 Pustulosis palmaris et plantaris; L85.3 Xerosis cutis; L21.9 Seborrheic dermatitis, unspecified; Z79.899 Other long term (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; Z79.1 Long term (current) use of non-steroidal anti-inflammatories (NSAID)
CPT/HCPCS: 96413; 96415; 96375; A4216; Q5103

== ENCOUNTER 2025-02-26 11:54 | Outpatient (RCR) | payer MEDICARE, OTHER, SELFPAY ==
[2025-02-26 14:05] LABS: Absolute Lymphocyte Count 2.01 X10^3/uL (0.83-4.51); Absolute Neutrophil Count 2.2 X10^3/uL (2.0-7.7); Basophil# 0.03 X10^3/uL; Basophil% 0.6 % (0-1); Eosinophil# 0.29 X10^3/uL; Eosinophils% 5.7 % (0-5); Hematocrit 33.7 % (40-54); Hemoglobin 11.9 g/dL (13.0-16.5); Lymphocyte # 2.01 X10^3/ul (0.83-4.51); Lymphocyte % 39.8 % (19-41); Mean Corp Hgb Conc 35.3 g/dL (32-36); Mean Corpuscular Hgb 33.7 pg (27.0-32.0); Mean Corpuscular Volume 95.5 fL (80-94); Mean Platelet Vol. 10.8 fl (6.2-12.0); Monocyte# 0.54 X10^3/uL; Monocyte% 10.7 % (0-10); NRBC Flagged by Analyzer 0 % (0-5); Neutrophil # 2.17 X10^3/uL (2.7-7.7); Platelet Count 278 K/mm3 (150-450); RBC Distribution Width CV 14.3 % (11.6-14.6); RBC Distribution Width SD 48.7 fl (35.1-43.9); Red Blood Count 3.53 M/mm3 (4.6-6.2); White Blood Count 5.1 K/mm3 (4.4-11.0)
[2025-02-26 14:40] LABS: Erythrocyte Sedimentation Rate 3 mm/hr (0-20)
[2025-02-26 16:30] LABS: AST(SGOT) 35 U/L (<=37); Alanine Aminotransfer ALT/SGPT 32 U/L (<=46); Creatinine, Serum 1.64 mg/dL (0.70-1.20); EST Glomerular Filtration Rate 42 (>60)
[2025-02-26 16:31] LABS: CRP < 3.00 mg/L (0.0-3.0)
== END 2025-03-13 18:00 | disposition home or self-care (01) ==
LOC: LAB 11:54
PROVIDERS: PCP Family Medicine; Referring Provider Internal Medicine Rheumatology; Visit Provider Internal Medicine Rheumatology
DX: M17.0 Bilateral primary osteoarthritis of knee; M50.90 Cervical disc disorder, unspecified, unspecified cervical region; D53.9 Nutritional anemia, unspecified; D64.89 Other specified anemias; L30.1 Dyshidrosis [pompholyx]; L81.4 Other melanin hyperpigmentation; L82.1 Other seborrheic keratosis; L21.9 Seborrheic dermatitis, unspecified; L40.3 Pustulosis palmaris et plantaris; L57.8 Other skin changes due to chronic exposure to nonionizing radiation; L85.3 Xerosis cutis; L57.0 Actinic keratosis; R80.8 Other proteinuria; Z79.899 Other long term (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; Z79.631 Long term (current) use of antimetabolite agent; R35.1 Nocturia; Z87.39 Personal history of other diseases of the musculoskeletal system and connective tissue; Z79.620 Long term (current) use of immunosuppressive biologic; Z85.828 Personal history of other malignant neoplasm of skin; R39.198 Other difficulties with micturition; Z79.01 Long term (current) use of anticoagulants; R94.4 Abnormal results of kidney function studies; L40.52 Psoriatic arthritis mutilans
CPT/HCPCS: 36415; 82565; 82570; 84450; 84460; 85025; 85652; 86140

== ENCOUNTER → 2025-03-27 | Outpatient (CLI) | payer MEDICARE, OTHER, SELFPAY ==
--- NOTE | 2025-03-27 09:09 | RAD_ITS ---
EXAM: XR Left Foot Complete, 3 or More Views CLINICAL INDICATION: PAIN, ULCER TECHNIQUE: Frontal, lateral and oblique views of the left foot. COMPARISON: No relevant prior studies available. FINDINGS: BONES/JOINTS: Amputation of the 3rd and 4th proximal PIP joints. Amputation of the 1st metatarsophalangeal joint. Haziness of the surgical margins. Osteomyelitis can not be excluded. No acute fracture. No dislocation. SOFT TISSUES: Soft tissue swelling. No radiopaque foreign body. RAD/Foot min 3 Views IMPRESSION: Amputation of the 3rd and 4th proximal PIP joints. Amputation of the 1st metata rsophalangeal joint. Haziness of the surgical margins. Osteomyelitis can not be excluded. Reading Location: [id number]
== END | disposition home or self-care (01) ==
LOC: MTRAD 09:07
PROVIDERS: PCP Family Medicine; Referring Provider Podiatrist; Visit Provider Podiatrist
DX: L97.524 Non-pressure chronic ulcer of other part of left foot with necrosis of bone (principal)
CPT/HCPCS: 73630

== ENCOUNTER 2025-04-04 09:57 | Outpatient (CLI) | payer MEDICARE, OTHER, SELFPAY ==
[2025-04-04 10:12] VITALS: BP 119/68; PULSE 70; RESP 16; TEMP 36; O2SAT 99; BMI 26.2
[2025-04-04] MEDS: DiphenhydrAMINE 50 MG/ML Syringe 12.5 MG IV (10:30)
[2025-04-04] MEDS: NORMAL SALINE 0.9% IV (10:49)
[2025-04-04] MEDS: INFLIXIMAB DYYB IV (10:49)
[2025-04-04 13:13] VITALS: BP 129/71; PULSE 60; RESP 16; TEMP 36.6; O2SAT 100
== END 2025-04-04 23:59 | disposition home or self-care (01) ==
LOC: MEDOUTP 09:58
PROVIDERS: PCP Family Medicine; Referring Provider Internal Medicine Rheumatology; Visit Provider Internal Medicine Rheumatology
DX: L40.52 Psoriatic arthritis mutilans (principal); M50.90 Cervical disc disorder, unspecified, unspecified cervical region; M17.0 Bilateral primary osteoarthritis of knee; L40.3 Pustulosis palmaris et plantaris; L21.9 Seborrheic dermatitis, unspecified; Z79.1 Long term (current) use of non-steroidal anti-inflammatories (NSAID); Z79.899 Other long term (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
CPT/HCPCS: 96413; 96415; A4216; Q5103

== ENCOUNTER 2025-04-15 15:13 | Inpatient (IN) | payer MEDICARE, OTHER, SELFPAY ==
[2025-04-15] VITALS (8 sets, daily range): BP systolic 110–147; BP diastolic 55–91; PULSE 63–89; RESP 10–18; TEMP 36.5–37.1; O2SAT 95–100; BMI 27.0; BMI 26.7
--- NOTE | 2025-04-15 15:55 | EX.ED.DYSGE1 ---
HPI History of Present Illness Chief Complaint: Cellulitis Narrative Narrative: Chief complaint and HPI: 79-year-old male with past medical history of DM2, history of MRSA and osteomyelitis, atrial fibrillation on Eliquis presents for evaluation of left toe wound and cellulitis. Patient has a history of osteomyelitis in the past which she has required toe amputations. He follows with podiatry, Dr. Freeman. Patient states that he recently obtained an x-ray a couple weeks ago that showed possible osteomyelitis in his fourth toe. He states he has an appointment with podiatry tomorrow. He states on Tuesday they noticed blood on his sock and when they took his sock off he had an open wound on his left toe. He states since then it has become red and the redness is spreading to the other toes as well as up the foot. He denies any fever, chills, body aches, nausea, vomiting. States he has peripheral neuropathy at baseline and therefore does not feel pain. Review of systems: See HPI Medications: As listed on the chart Allergies: As listed on the chart PFSH: Per chart Vital signs: As listed on the chart. Reviewed. Physical exam: Gen: A&O x3, NAD Head: Normocephalic, atraumatic Eyes: No sclera icterus, conjunctiva clear ENT: Moist mucous membranes Neck: Trachea midline, No JVD CV: RRR, no murmurs, no peripheral edema Resp: Lungs CTA BL, no w/r/c Musc: Full ROM, no deformity, patient has toe amputations to the majority of his toes bilaterally, he has a small open wound to the left dorsal aspect of the toe, there is erythema and warmth to all the toes extending to the dorsum of the left foot, he has bilateral peripheral pitting edema which she states is chronic palpable peripheral pulses Skin: Warm, dry Neuro: Alert, oriented, grossly intact, sensation intact Psych: Cooperative, appropriate mood and affect [facility] Medical History (Updated 04/15/25 @ 18:32 by Sierra Chan) Kidney disease GERD (gastroesophageal reflux disease) Former smoker Hypertension Hypertension, well controlled Amputation toe Cataract Glaucoma CPAP (continuous positive airway pressure) dependence Sleep apnea Asthma Atrial fibrillation Nonhealing nonsurgical wound with fat layer exposed Essential hypertension RAJESH (obstructive sleep apnea) Ectopic atrial tachycardia Paroxysmal ventricular tachycardia Premature atrial contractions Cellulitis Psoriasis Arthritis Shortness of breath Hyperlipidemia Hypertension Premature ventricular contraction Supraventricular tachycardia Long-term use of high-risk medication Body mass index 31.0-31.9, adult Diabetes mellitus Secondary pulmonary arterial hypertension Methicillin susceptible Staphylococcus aureus infection Acute osteomyelitis involving ankle and foot Chronic osteomyelitis involving ankle and foot Home Medications ?Medication ?Instructions ?Recorded ?Last Taken ?Type finasteride 5 mg tablet 5 mg PO DAILY prostate 02/03/16 04/15/25 History tamsulosin 0.4 mg capsule 0.4 mg PO QHS prostate 02/03/16 04/14/25 History fluticasone propionate 50 2 spray NASAL DAILY PRN Nasal 06/30/18 04/15/25 History mcg/actuation nasal Congestion spray,suspension methotrexate sodium 2.5 mg tablet 7.5 mg PO Q7D arthritis 06/30/18 04/10/25 History pyridoxine (vitamin B6) 50 mg 100 mg PO QHS supplement 06/30/18 04/14/25 History tablet multivitamin with folic acid 400 1 tab PO DAILY supplement 10/20/18 04/15/25 History mcg tablet oxybutynin chloride 5 mg 5 mg PO QHS bladder 10/20/18 04/14/25 History tablet,extended release 24 hr folic acid 1 mg tablet 4 mg PO DAILY supplement 06/01/19 04/15/25 History glucosamine HCl 1,500 mg tablet 1,500 mg PO BID supplemt 02/20/20 04/15/25 History infliximab-dyyb 100 mg intravenous 100 mg IV UD psoriatic arthritis 05/30/20 04/08/25 History solution (Inflectra) cyanocobalamin (vitamin B-12) 100 500 mcg PO DAILY supplement 12/01/20 04/15/25 History mcg tablet amlodipine 2.5 mg tablet 2.5 mg PO DAILY #90 tabs 04/10/24 04/15/25 Rx metoprolol succinate 100 mg 100 mg PO BID bp/heart #180 tabs 04/10/24 04/15/25 Rx tablet,extended release 24 hr pravastatin 40 mg tablet 40 mg PO QHS cholesterol #90 tabs 04/10/24 04/14/25 Rx cholecalciferol (vitamin D3) 25 25 mcg PO DAILY supplement 06/20/24 04/13/25 History mcg (1,000 unit) tablet ginkgo biloba leaf extract 60 mg 60 mg PO DAILY 06/20/24 04/15/25 History capsule glipizide 10 mg tablet 10 mg PO DAILY dm 06/20/24 04/15/25 History lisinopril 40 mg tablet 40 mg PO DAILY #90 tabs 02/13/25 04/15/25 Rx furosemide 20 mg tablet (Lasix) 20 mg PO DAILY PRN edema 03/08/25 04/12/25 History hydrochlorothiazide 12.5 mg capsule 12.5 mg PO QDAY 03/08/25 04/15/25 History vitamins A,C,B-bylb-cyhsoc 4,296 1 cap PO QDAY 03/08/25 04/15/25 History mcg-226 mg-90 mg capsule (PreserVision AREDS) apixaban 5 mg tablet (Eliquis) 5 mg PO BID 04/15/25 04/14/25 History doxycycline hyclate 100 mg capsule 100 mg PO Q12H 04/15/25 04/15/25 History lactulose 10 gram/15 mL oral 15 ml PO QHS 04/15/25 04/12/25 History solution (Enulose) multivitamin (Daily Multi-Vitamin 1 tab PO DAILY 04/15/25 04/15/25 History tablet) Allergy/AdvReac Type Severity Reaction Status Date / Time cephalexin (From Keflex) Allergy Severe rash Verified 04/04/25 10:13 sulfamethoxazole (From Allergy Severe Rash Verified 04/04/25 10:13 Bactrim) trimethoprim (From Bactrim) Allergy Severe Rash Verified 04/04/25 10:13 Penicillins Allergy Rash Verified 04/04/25 10:13 doxycycline AdvReac Severe GI upset Verified 04/04/25 10:13 levofloxacin (From Levaquin) AdvReac Other Verified 04/04/25 10:13 Family History Father Cancer Prostate Mother Depression Uncle Myocardial infarction Son CVA (cerebral vascular accident) Surgical History History of bilateral cataract extraction History of foot surgery (~02/2023) excision of skin cancer History of hammer toe correction (09/26/20) History of partial amputation of toe History of hernia repair History of tonsillectomy and adenoidectomy Social History Smoking Status: Former smoker pack-years: 30 alcohol intake: current alcohol intake frequency: holidays/special occasions only substance use type: does not use caffeine: Yes Type: coffee Number of servings: 2 what type of physical activity do you participate in: running and weight training frequency: 1-2 times per week EXAM Physical Exam Const Vital Signs: 04/15/25 15:13 04/15/25 15:15 04/15/25 16:15 Temperature 97.9 F 97.9 F 97.9 F Temperature Source Oral Oral Oral Pulse Rate 85 85 75 Respiratory Rate 16 16 17 Blood Pressure 143/80 H 143/80 H 128/81 H Blood Pressure Mean 101 101 96 Pulse Ox 99 99 100 Oxygen Delivery Method Room Air Room Air Room Air 04/15/25 17:00 Temperature 97.9 F Temperature Source Oral Pulse Rate 71 Respiratory Rate 10 L Blood Pressure 142/91 H Blood Pressure Mean 108 Pulse Ox 100 Oxygen Delivery Method Room Air MDM MDM MDM Narrative Medical decision making narrative: 79-year-old male with past medical history of DM2, history of MRSA and osteomyelitis, atrial fibrillation on Eliquis presents for evaluation of left toe wound and cellulitis. Patient states that several weeks ago he obtained an x-ray that showed possible osteomyelitis in the toe. Send he developed a wound with spreading erythema. Denies any systemic symptoms. Differential diagnosis includes but is not limited to cellulitis, osteomyelitis, bacteremia. Laboratory workup ordered including repeat x-ray of the right foot. On chart review, I was unable to find any podiatry notes. However patient did have x-ray of the left foot on 03/27 that showed amputation of 3rd and 4th proximal PIP joints. Amputation of the first metatarsal phalangeal joint. Haziness at the surgical margins. Osteomyelitis cannot be excluded. Chart review, patient is on immunosuppressants including Inflectra and methotrexate. CBC without leukocytosis however this may be skewed due to his immunosuppressants. Patient has baseline anemia of 11.4. ESR unremarkable. BMP shows baseline renal insufficiency. Lactic acid unremarkable. CRP elevated at 30.6. X-ray of the left foot shows soft tissue swelling involving multiple toes. Similar appearance compared to previous x-ray. Recommends MRI for concern for osteomyelitis. Mildly displaced fracture of the fourth proximal phalanx. Given these findings, podiatry was contacted and patient was discussed with Dr. Freeman. Given patient is on immunosuppressants with previous history of poor wound healing, recommended admission for IV antibiotics. I spoke with the patient and updated him on the results and the plan. He confirmed understanding. Meropenem and vancomycin ordered for antibiotics due to his allergies. Patient was discussed with the hospitalist service who accepted admission. Impression: 1. Diabetic left foot wound with cellulitis 2. Chronic osteomyelitis 3. Immunosuppression Lab Data Labs: Laboratory Results - last 24 hr 04/15/25 15:55 WBC 5.9 RBC 3.22 L Hgb 11.4 L Hct 32.5 L MCV 100.9 H MCH 35.4 H MCHC 35.1 RDW Std Deviation 51.8 H RDW Coeff of Jaimee 14.3 Plt Count 200 MPV 10.8 Immature Gran % (Auto) 0.300 Neut % (Auto) 59.2 Lymph % (Auto) 21.9 [place] % (Auto) 12.1 H Eos % (Auto) 5.6 H Baso % (Auto) 0.9 Absolute Neuts (auto) 3.5 Absolute Lymphs (auto) 1.28 Nucleated RBC % 0 ESR 21 H Sodium 139 Potassium 3.9 Chloride 103 Carbon Dioxide 24.3 Anion Gap 12 BUN 26 H Creatinine 1.38 H Estim Creat Clear Calc 46.08 L Est GFR (MDRD) Non-Af 51 L BUN/Creatinine Ratio 19.1 Glucose 183 H Lactic Acid 1.6 Calcium 9.4 C-React Prot Ext Range 30.20 H Radiography Diagnostic Testing: Clinical Impression(s) from Imaging Studies Foot X-Ray 04/15/25 16:13 IMPRESSION: 1. Similar appearance of the left foot compared to radiographs on 03/27/2025, including amputation and soft tissue swelling involving multiple toes. Consider bone scan or MRI if there is concern for osteomyelitis. 2. Mildly displaced fracture of the 4th proximal phalanx. Reading Location: [id number] Discharge Plan Disposition Disposition: Acute Care Hospital [facility] Discharge Date/Time: 04/15/25 18:06
--- NOTE | 2025-04-15 16:13 | RAD_ITS ---
PROCEDURE: FOOT MIN 3 VIEWS 04/15/2025 REASON FOR EXAM: FOURTH TOE WOUND TECHNIQUE: 3 views of the left foot. COMPARISON: Left foot radiographs 03/27/2020 FINDINGS: There is amputation throughout the phalanges, at the metatarsophalangeal joint of the great toe, and at the proximal interphalangeal joints of the 3rd and 4th toes. Mildly displaced fracture through the 4th proximal phalanx. Soft tissue swelling throughout the foot, predominantly involving the toes. Plantar heel spur. Degenerative changes throughout the foot. RAD/Foot min 3 Views IMPRESSION: 1. Similar appearance of the left foot compared to radiographs on 03/27/2025, including amputation and soft tissue swelling involving multiple toes. Consider bone scan or MRI if there is concern for ost eomyelitis. 2. Mildly displaced fracture of the 4th proximal phalanx. Reading Location: [id number]
[2025-04-15 16:23] LABS: Absolute Lymphocyte Count 1.28 X10^3/uL (0.83-4.51); Absolute Neutrophil Count 3.5 X10^3/uL (2.0-7.7); Basophil# 0.05 X10^3/uL; Basophil% 0.9 % (0-1); Eosinophil# 0.33 X10^3/uL; Eosinophils% 5.6 % (0-5); Hematocrit 32.5 % (40-54); Hemoglobin 11.4 g/dL (13.0-16.5); Lymphocyte # 1.28 X10^3/ul (0.83-4.51); Lymphocyte % 21.9 % (19-41); Mean Corp Hgb Conc 35.1 g/dL (32-36); Mean Corpuscular Hgb 35.4 pg (27.0-32.0); Mean Corpuscular Volume 100.9 fL (80-94); Mean Platelet Vol. 10.8 fl (6.2-12.0); Monocyte# 0.71 X10^3/uL; Monocyte% 12.1 % (0-10); NRBC Flagged by Analyzer 0 % (0-5); Neutrophil # 3.46 X10^3/uL (2.7-7.7); Neutrophil % 59.2 % (47-70); Platelet Count 200 K/mm3 (150-450); RBC Distribution Width CV 14.3 % (11.6-14.6); RBC Distribution Width SD 51.8 fl (35.1-43.9); Red Blood Count 3.22 M/mm3 (4.6-6.2); White Blood Count 5.9 K/mm3 (4.4-11.0)
[2025-04-15 16:25] LABS: Erythrocyte Sedimentation Rate 21 mm/hr (0-20)
[2025-04-15 16:26] LABS: Anion Gap 12 (5-15); BUN 26 mg/dL (4-19); BUN/Creat Ratio 19.1 RATIO (10-20); Calcium,Total 9.4 mg/dL (7.6-11.0); Carbon Dioxide 24.3 mmol/L (21.0-32.0); Chloride 103 mmol/L (98-108); Creatinine, Serum 1.38 mg/dL (0.70-1.20); EST Glomerular Filtration Rate 51 (>60); Estimated Creatinine Clearance 46.08 ml/min (50-250); Glucose 183 mg/dL (70-99); Potassium 3.9 mmol/L (3.3-5.1); Sodium Level 139 mmol/L (133-145)
[2025-04-15 16:32] LABS: Lactic Acid 1.6 mmol/L (0.0-2.0)
--- NOTE | 2025-04-15 17:20 | PCM.HP.STD ---
HPI - General General Date of Admission: 04/15/25 Date of Service: 04/15/25 Chief Complaint: Left foot pain and right HPI Narrative YESSI GRACE, is a 79 M with past medical history as For diabetes mellitus type 2, previous history of diabetic foot infections including osteomyelitis, paroxysmal A-fib on apixaban who presented to the emergency department with a 3-day history of redness swelling involving the left foot stump. Patient has history of osteomyelitis and had some residual doxycycline prescription from her previous visit. Patient taking the doxycycline without much improvement. Patient did inform his remote sensing technician Dr. Xiomara Farley who advised patient to to present to the emergency department. Imaging studies obtained demonstrated degenerative changes throughout the right foot with soft tissue swelling involving multiple toes. Patient was started on broad-spectrum antibiotic therapy admitted to regular nursing floor for further management [facility] Medical History Hypertension, well controlled Amputation toe Cataract Glaucoma CPAP (continuous positive airway pressure) dependence Sleep apnea Asthma Atrial fibrillation Nonhealing nonsurgical wound with fat layer exposed Essential hypertension RAJESH (obstructive sleep apnea) Ectopic atrial tachycardia Paroxysmal ventricular tachycardia Premature atrial contractions Cellulitis Psoriasis Arthritis Shortness of breath Hyperlipidemia Hypertension Premature ventricular contraction Supraventricular tachycardia Long-term use of high-risk medication Body mass index 31.0-31.9, adult Diabetes mellitus Secondary pulmonary arterial hypertension Methicillin susceptible Staphylococcus aureus infection Acute osteomyelitis involving ankle and foot Chronic osteomyelitis involving ankle and foot Home Medications ?Medication ?Instructions ?Recorded ?Last Taken ?Type finasteride 5 mg tablet 5 mg PO DAILY prostate 02/03/16 04/15/25 History tamsulosin 0.4 mg capsule 0.4 mg PO QHS prostate 02/03/16 04/14/25 History fluticasone propionate 50 2 spray NASAL DAILY PRN Nasal 06/30/18 04/15/25 History mcg/actuation nasal Congestion spray,suspension methotrexate sodium 2.5 mg tablet 7.5 mg PO Q7D arthritis 06/30/18 04/10/25 History pyridoxine (vitamin B6) 50 mg 100 mg PO QHS supplement 06/30/18 04/14/25 History tablet multivitamin with folic acid 400 1 tab PO DAILY supplement 10/20/18 04/15/25 History mcg tablet oxybutynin chloride 5 mg 5 mg PO QHS bladder 10/20/18 04/14/25 History tablet,extended release 24 hr folic acid 1 mg tablet 4 mg PO DAILY supplement 06/01/19 04/15/25 History glucosamine HCl 1,500 mg tablet 1,500 mg PO BID supplemt 02/20/20 04/15/25 History infliximab-dyyb 100 mg intravenous 100 mg IV UD psoriatic arthritis 05/30/20 04/08/25 History solution (Inflectra) cyanocobalamin (vitamin B-12) 100 500 mcg PO DAILY supplement 12/01/20 04/15/25 History mcg tablet amlodipine 2.5 mg tablet 2.5 mg PO DAILY #90 tabs 04/10/24 04/15/25 Rx metoprolol succinate 100 mg 100 mg PO BID bp/heart #180 tabs 04/10/24 04/15/25 Rx tablet,extended release 24 hr pravastatin 40 mg tablet 40 mg PO QHS cholesterol #90 tabs 04/10/24 04/14/25 Rx cholecalciferol (vitamin D3) 25 25 mcg PO DAILY supplement 06/20/24 04/13/25 History mcg (1,000 unit) tablet ginkgo biloba leaf extract 60 mg 60 mg PO DAILY 06/20/24 04/15/25 History capsule glipizide 10 mg tablet 10 mg PO DAILY dm 06/20/24 04/15/25 History lisinopril 40 mg tablet 40 mg PO DAILY #90 tabs 02/13/25 04/15/25 Rx furosemide 20 mg tablet (Lasix) 20 mg PO DAILY PRN edema 03/08/25 04/12/25 History hydrochlorothiazide 12.5 mg capsule 12.5 mg PO QDAY 03/08/25 04/15/25 History vitamins A,C,A-wyjc-qivihv 4,296 1 cap PO QDAY 03/08/25 04/15/25 History mcg-226 mg-90 mg capsule (PreserVision AREDS) apixaban 5 mg tablet (Eliquis) 5 mg PO BID 04/15/25 04/14/25 History doxycycline hyclate 100 mg capsule 100 mg PO Q12H 04/15/25 04/15/25 History lactulose 10 gram/15 mL oral 15 ml PO QHS 04/15/25 04/12/25 History solution (Enulose) multivitamin (Daily Multi-Vitamin 1 tab PO DAILY 04/15/25 04/15/25 History tablet) Allergy/AdvReac Type Severity Reaction Status Date / Time cephalexin (From Keflex) Allergy Severe rash Verified 04/04/25 10:13 sulfamethoxazole (From Allergy Severe Rash Verified 04/04/25 10:13 Bactrim) trimethoprim (From Bactrim) Allergy Severe Rash Verified 04/04/25 10:13 Penicillins Allergy Rash Verified 04/04/25 10:13 doxycycline AdvReac Severe GI upset Verified 04/04/25 10:13 levofloxacin (From Levaquin) AdvReac Other Verified 04/04/25 10:13 Family History Father Cancer Prostate Mother Depression Uncle Myocardial infarction Son CVA (cerebral vascular accident) Surgical History History of bilateral cataract extraction History of foot surgery (~02/2023) excision of skin cancer History of hammer toe correction (09/26/20) History of partial amputation of toe History of hernia repair History of tonsillectomy and adenoidectomy Social History Smoking Status: Former smoker pack-years: 30 alcohol intake: current alcohol intake frequency: holidays/special occasions only substance use type: does not use caffeine: Yes Type: coffee Number of servings: 2 what type of physical activity do you participate in: running and weight training frequency: 1-2 times per week ROS ROS Narrative GENERAL: denies fever, chills, night sweats, weight loss, anorexia HEENT: denies headache, sinus congestion, or drainage, dysphagia RESPIRATORY: denies cough, sputum production, shortness of breath, dyspnea on exertion CARDIAC: denies chest pain, palpitations, orthopnea, PND GASTROINTESTINAL: denies abdominal pain, nausea, vomiting, melena, GENITOURINARY: denies dysuria, urgency, frequency, heamaturia EXTREMITY: denies swelling MUSCULOSKELETAL: Left foot swelling and erythema NEUROLOGIC: denies focal numbness, weakness, tingling HEMATOLOGIC: denies easy bruising and/or hemorrhage INTEGUMENT: denies rashes PSYCHIATRIC: denies suicidal or homicidal ideation Vital Signs Vital Signs Vital Signs: 04/15/25 15:13 04/15/25 15:15 04/15/25 16:15 Temperature 97.9 F 97.9 F 97.9 F Temperature Source Oral Oral Oral Pulse Rate 85 85 75 Respiratory Rate 16 16 17 Blood Pressure 143/80 H 143/80 H 128/81 H Blood Pressure Mean 101 101 96 Pulse Ox 99 99 100 Oxygen Delivery Method Room Air Room Air Room Air 04/15/25 17:00 Temperature 97.9 F Temperature Source Oral Pulse Rate 71 Respiratory Rate 10 L Blood Pressure 142/91 H Blood Pressure Mean 108 Pulse Ox 100 Oxygen Delivery Method Room Air Weight Weight: 90.356 kg Body Mass Index (BMI) 27.0 Physical Exam Narrative GENERAL: cooperative HEENT: Atraumatic; normocephalic EYES; Anicteric, Normal Conjunctiva NECK; supple, normal thyroid, RESPIRATORY: Diminished to auscultation CARDIOVASCULAR: Regular S1 S2, GI: soft, normoactive bowel sounds, : No Renal angle tenderness; EXTREMITIES: Amputation of previous phalanges involving the left foot with residual swelling and erythema and warmth MUSCULOSKELETAL: no muscle wasting NEURO: Awake; no lateralizing signs. SKIN: As discussed above PSYCH; Flat affect Results Lab / Micro Data 04/15/25 15:55 04/15/25 15:55 Labs: Laboratory Results - last 24 hr 04/15/25 15:55: WBC 5.9, RBC 3.22 L, Hgb 11.4 L, Hct 32.5 L, MCV 100.9 H, MCH 35.4 H, MCHC 35.1, RDW Std Deviation 51.8 H, RDW Coeff of Jaimee 14.3, Plt Count 200, MPV 10.8, Immature Gran % (Auto) 0.300, Neut % (Auto) 59.2, Lymph % (Auto) 21.9, [place] % (Auto) 12.1 H, Eos % (Auto) 5.6 H, Baso % (Auto) 0.9, Absolute Neuts (auto) 3.5, Absolute Lymphs (auto) 1.28, Nucleated RBC % 0, ESR 21 H, Sodium 139, Potassium 3.9, Chloride 103, Carbon Dioxide 24.3, Anion Gap 12, BUN 26 H, Creatinine 1.38 H, Estim Creat Clear Calc 46.08 L, Est GFR (MDRD) Non-Af 51 L, BUN/Creatinine Ratio 19.1, Glucose 183 H, Lactic Acid 1.6, Calcium 9.4, C-React Prot Ext Range 30.20 H Imaging Radiology Impression Foot X-Ray 04/15/25 16:13 IMPRESSION: 1. Similar appearance of the left foot compared to radiographs on 03/27/2025, including amputation and soft tissue swelling involving multiple toes. Consider bone scan or MRI if there is concern for osteomyelitis. 2. Mildly displaced fracture of the 4th proximal phalanx. Reading Location: [id number] Assessment & Plan Assessment/Plan (1) Diabetic foot ulcer associated with type 2 diabetes mellitus: QUALIFIERS: Diabetic foot ulcer location: toe Laterality: left Non-pressure ulcer stage: with bone involvement without evidence of necrosis Qualified Code(s): E11.621 - Type 2 diabetes mellitus with foot ulcer; L97.526 - 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 involvement without evidence of necrosis PLAN: Plan Patient is an 79-year-old gentleman presenting with erythema swelling and warmth involving the left foot 1. Diabetic foot infection involving the left foot. 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 Imaging studies obtained demonstrated soft tissue swelling involving multiple toes was however nonconclusive for osteomyelitis. Patient has been admitted to regular nursing floor started on broad-spectrum antibiotic therapy with meropenem and vancomycin. Ordered MRI to rule out osteomyelitis. Also ordered hemoglobin A1c ESR as well as CRP 2. 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 Held patient oral agents. Started patient on long-acting insulin in addition to Accu-Cheks AC and at bedtime with sliding scale coverage. Patient was also placed on 1800 ADA diet 3. Paroxysmal A-fib ? Patient heart rate was relatively low. Will place patient on continuous telemetry monitoring. Patient is on metoprolol 100 mg twice daily will hold for heart rate less than 50 and blood pressure less than 100. Patient is on systemic anticoagulation apixaban did continue 4. Chronic kidney disease stage III ? Avoided nephrotoxic medications. Patient is on furosemide Lasix as well as HCTZ held 5. Essential hypertension ? Patient antihypertensives adjusted as above ordered hydralazine for systolic blood pressure greater than 160 6. Obstructive sleep apnea ? Consistent use of PAP therapy encouraged 7. 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 Patient is on methotrexate as well as infliximab held in view of patient infection 8. BPH with lower urinary obstructive symptoms - Patient treated with tamsulosin 9. Anemia ? Secondary to chronic disorder monitoring H&H and transfuse if patient becomes symptomatic or hemoglobin falls below 7 10. DVT prophylaxis ? Patient is on apixaban no need for additional measures Advance planning; did discuss with the patient and family (patient's ) regarding advanced directives as well as CODE STATUS. Did explain the various scenarios involved ( FULL CODE, DNR CCA, DNR CCA with no intubation, and DNR CC and what each meant) patient elected to remain full code with CPR and intubation if warranted. Order was placed. Time spent on discussion 17 minutes. Charges/Coding Multi Select Codes Visit Charges Visit Charges: 51297 Init Hosp L3 Hospitalists' Procedures Procedures: 96352 Advncd Care Plan 30 Min
[2025-04-15] MEDS: Meropenem 1 GM in 0.9% Normal Saline (100mL MB+) 100 ML IV (17:34)
--- NOTE | 2025-04-15 18:22 | CASEMGMT ---
Care Management Face to Face with patient for initial transition planning/care coordination assessment in the ED.? This keno writer introduced self and role at [facility]. Patient alert and oriented. Patient willing to participate in assessment and is able to answer all questions appropriately.? Care providers, pharmacy, and demographics verified. Admitting Diagnosis: Diabetic foot ulcer Other diagnosis history: Afib, hypertension, Diabetes, Asthma PCP: ?Johnny Specialists: ?Paulo Gary [place] Preferred Pharmacy: [facility] [employer] Insurance: ?Medicare Prescription Benefit: ?Yes Living Will/HPOA: Completed but not on file LNOK: Living Arrangements: ?[facility] step to enter. Patient states independent with ADLs. Transportation: ?Patient drives DME: ?None HHC: None SNF/Rehab: ?None Community Resources: ?None Behavioral Health History: ?None Patient goals: Patient wishes to discharge home, denies need for home health care at this time. Patient denies any further needs or concerns at this time. Disposition Plan: admission to acute; RN CM/SW to follow for discharge planning needs that may arise. Pippa Blankenship, CURVE SAW OPERATOR, TATTOO AND BODY ARTIST
--- NOTE | 2025-04-15 18:28 | MRI_ITS ---
PROCEDURE: LOWER EXT NO JOINT W/WO CONT 04/16/2025 REASON FOR EXAM: OSTEOMYELITIS TECHNIQUE: MRI of the left foot intravenous gadolinium-based contrast. Multiplanar and multisequence images were obtained. CONTRAST: Clariscan VOLUME: 18mL COMPARISON: 04/15/2025. FINDINGS: Prominent soft tissue edema and swelling overlying the tip of the proximal phalanx of the 4th toe with associated subcutaneous abscess formation measuring 1.4 x 1.5 cm. Prominent underlying bone marrow edema of the proximal phalanx of the 4th toe suggestive of osteomyelitis. No drainable intraosseous abscess formation is identified. There is amputation throughout the phalanges, at the metatarsophalangeal joint of the great toe, and at the proximal interphalangeal joints of the 3rd and 4th toes. Mildly displaced fracture through the 4th proximal phalanx. Soft tissue swelling throughout the foot, predominantly involving the toes. Plantar heel spur. Degenerative changes throughout the foot. Mild bone marrow edema of the head of the 1st metatarsal bone, probably fibrovascular reaction from repetitive minor trauma. No other abnormalities identified in the metatarsal bones. MRI/Lower Ext No Joint W/WO Cont IMPRESSION: 1. Prominent soft tissue edema and swelling overlying the tip of the proximal p halanx of the 4th toe with associated subcutaneous abscess formation measuring 1.4 x 1.5 cm. Prominent underlying bone marrow tanner ma of the proximal phalanx of the 4th toe suggestive of osteomyelitis. No drainable intraosseous abscess formation is gray ntified. 2. Amputation throughout the phalanges, at the metatarsophalangeal joint of the great toe, and 3. at the proximal interphalangeal joints of the 3rd and 4th toes. Mildly displ aced fracture through the 4th proximal 4. phalanx. 5. Soft tissue swelling throughout the foot, predominantly involving the toes. Reading [facility]
[2025-04-15] MEDS: Vancomycin HCl 2,000 MG in 0.9% Normal Saline (500mL Bag) 500 ML 250 MG IV (18:30)
[2025-04-15 19:37] LABS: Erythrocyte Sedimentation Rate 10 mm/hr (0-20)
--- NOTE | 2025-04-15 19:57 | PCM.RX.CS ---
Consult Antibiotic Management Pharmacy has been consulted to manage selected antibiotic: Vancomycin Type of Intervention Type of Consult: New start Suspected Infection Suspected Infection: Skin/Soft tissue Labs Labs: Sodium 139 mmol/L (133-145) 04/15/25 15:55 Potassium 3.9 mmol/L (3.3-5.1) 04/15/25 15:55 Chloride 103 mmol/L (98-108) 04/15/25 15:55 Carbon Dioxide 24.3 mmol/L (21.0-32.0) 04/15/25 15:55 Anion Gap 12 (5-15) 04/15/25 15:55 BUN 26 mg/dL (4-19) H 04/15/25 15:55 Creatinine 1.38 mg/dL (0.70-1.20) H 04/15/25 15:55 Est GFR (MDRD) Non-Af 51 (>60) L 04/15/25 15:55 BUN/Creatinine Ratio 19.1 RATIO (10-20) 04/15/25 15:55 Glucose 183 mg/dL (70-99) H 04/15/25 15:55 Microbiology Microbiology: Microbiology 04/15/25 18:00 Wound - Toe Skin and Soft Tissue MRSA/MSSA (PCR - Preliminary Staphylococcus aureus Dosing Weight Weight used for dosin.5 kg Goal Trough Goal Trough: 15-20 mcg/mL Pharmacy Plan for Drug Dosing Pharmacy Plan for Drug Dosing: NEW START IV VANCOMYCIN Consulting Physician: ROSALINDA Indication: SST/DIABETIC FOOT ULCER Goal Trough: 15-20 SrCr: 1.38 mg/dL CrCl: 46.08 Comments: pt started in the ED with 2000 mg Vancomycin Dose: 750 Q24H Pending Level: 04/17/2025 @0600 Pharmacy Service will continue to monitor and adjust dosing as required.
[2025-04-15] MEDS: APIXABAN 5 MG TABLET PO (21:06)
[2025-04-15] MEDS: hydrALAZINE 25 MG Tablet PO (21:07)
[2025-04-15] MEDS: Metoprolol(XL)Succ 100 MG Tablet PO (21:07)
[2025-04-15] MEDS: Pravastatin 40 MG Tablet PO (21:07)
[2025-04-15] MEDS: Pyridoxine HCl 100 MG Tablet PO (21:07)
[2025-04-15] MEDS: Tamsulosin HCl 0.4 MG Capsule PO (21:07)
[2025-04-15] MEDS: Oxybutynin 5 MG Tablet PO (21:07)
[2025-04-15 21:35] LABS: Bedside Glucose 117 mg/dL (74-106)
[2025-04-16] VITALS (10 sets, daily range): BP systolic 139–148; BP diastolic 71–87; PULSE 54–75; RESP 16–18; TEMP 36.4–37.1; O2SAT 95–99; BMI 26.7
[2025-04-16] MEDS: 0.9% Normal Saline (250mL Bag) 250 ML 15 ML IV (02:11)
[2025-04-16 06:03] LABS: Absolute Lymphocyte Count 1.34 X10^3/uL (0.83-4.51); Absolute Neutrophil Count 2.5 X10^3/uL (2.0-7.7); Basophil# 0.04 X10^3/uL; Basophil% 0.9 % (0-1); Eosinophil# 0.26 X10^3/uL; Eosinophils% 5.6 % (0-5); Hematocrit 29.2 % (40-54); Hemoglobin 10.2 g/dL (13.0-16.5); Lymphocyte # 1.34 X10^3/ul (0.83-4.51); Lymphocyte % 28.7 % (19-41); Mean Corp Hgb Conc 34.9 g/dL (32-36); Mean Corpuscular Hgb 35.2 pg (27.0-32.0); Mean Corpuscular Volume 100.7 fL (80-94); Mean Platelet Vol. 10.8 fl (6.2-12.0); Monocyte# 0.57 X10^3/uL; Monocyte% 12.2 % (0-10); NRBC Flagged by Analyzer 0 % (0-5); Neutrophil # 2.45 X10^3/uL (2.7-7.7); Neutrophil % 52.4 % (47-70); POSITIVE MORPHOLOGY YES; Platelet Count 174 K/mm3 (150-450); RBC Distribution Width CV 14.5 % (11.6-14.6); White Blood Count 4.7 K/mm3 (4.4-11.0)
[2025-04-16] MEDS: Insulin Lispro 100 UNIT/ML INSULN.PEN SC ×4 (06:14→22:49)
[2025-04-16] MEDS: hydrALAZINE 25 MG Tablet PO ×3 (06:15→22:51)
[2025-04-16 06:16] LABS: Differential Indicated SCAN CRITERIA MET
[2025-04-16 06:27] LABS: Anion Gap 9 (5-15); BUN 24 mg/dL (4-19); BUN/Creat Ratio 18.4 RATIO (10-20); Calcium,Total 9.1 mg/dL (7.6-11.0); Carbon Dioxide 23.9 mmol/L (21.0-32.0); Chloride 107 mmol/L (98-108); Creatinine, Serum 1.28 mg/dL (0.70-1.20); EST Glomerular Filtration Rate 56 (>60); Estimated Creatinine Clearance 49.68 ml/min (50-250); Glucose 183 mg/dL (70-99); Magnesium 1.9 mg/dL (1.5-2.2); Potassium 3.7 mmol/L (3.3-5.1); Sodium Level 140 mmol/L (133-145)
--- NOTE | 2025-04-16 07:28 | PCM.PN.HOSP ---
Reason for Visit Reason for Visit: Diagnoses Type 2 diabetes mellitus with foot ulcer (04/15/25) 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 involvement without evidence of necrosis (04/15/25) Subjective Subjective Patient is on 79-year-old gentleman admitted with diabetic foot infection plan is for patient to undergo subsequent evaluation with an MRI to rule out osteomyelitis. Wound cultures obtained on admission so far positive for staph. Objective Data Objective Data Vital Signs: Vital Signs Temp Pulse Resp BP Pulse Ox O2 Del Method 98.4 F 73 18 139/71 H 95 Room Air 04/16/25 06:02 04/16/25 06:15 04/16/25 06:02 04/16/25 06:15 04/16/25 06:02 04/16/25 06:02 Oxygen Delivery Method Room Air Weight: 89.539 kg Body Mass Index (BMI) 26.7 Intake & Output: Intake and Output for Last 24 Hours 04/14/25 04/15/25 04/16/25 23:59 23:59 23:59 Intake Total 660.00 / 660.00 900 / 900 Output Total 300 / 300 Balance 660.00 / 660.00 600 / 600 Lab / Micro Data 04/16/25 05:34 04/16/25 05:34 Labs: Laboratory Results - last 24 hr 04/15/25 15:55: WBC 5.9, RBC 3.22 L, Hgb 11.4 L, Hct 32.5 L, MCV 100.9 H, MCH 35.4 H, MCHC 35.1, RDW Std Deviation 51.8 H, RDW Coeff of Jaimee 14.3, Plt Count 200, MPV 10.8, Immature Gran % (Auto) 0.300, Neut % (Auto) 59.2, Lymph % (Auto) 21.9, Nance % (Auto) 12.1 H, Eos % (Auto) 5.6 H, Baso % (Auto) 0.9, Absolute Neuts (auto) 3.5, Absolute Lymphs (auto) 1.28, Nucleated RBC % 0, ESR 21 H, Sodium 139, Potassium 3.9, Chloride 103, Carbon Dioxide 24.3, Anion Gap 12, BUN 26 H, Creatinine 1.38 H, Estim Creat Clear Calc 46.08 L, Est GFR (MDRD) Non-Af 51 L, BUN/Creatinine Ratio 19.1, Glucose 183 H, Lactic Acid 1.6, Calcium 9.4, C-React Prot Ext Range 30.20 H 04/15/25 18:56: ESR 10, C-React Prot Ext Range 30.60 H 04/15/25 21:10: POC Glucose 117 H 04/16/25 05:34: WBC 4.7, RBC 2.90 L, Hgb 10.2 L, Hct 29.2 L, MCV 100.7 H, MCH 35.2 H, MCHC 34.9, RDW Std Deviation 52.0 H, RDW Coeff of Jaimee 14.5, Plt Count 174, MPV 10.8, Immature Gran % (Auto) 0.200, Neut % (Auto) 52.4, Lymph % (Auto) 28.7, Nance % (Auto) 12.2 H, Eos % (Auto) 5.6 H, Baso % (Auto) 0.9, Absolute Neuts (auto) 2.5, Absolute Lymphs (auto) 1.34, Nucleated RBC % 0, Sodium 140, Potassium 3.7, Chloride 107, Carbon Dioxide 23.9, Anion Gap 9, BUN 24 H, Creatinine 1.28 H, Estim Creat Clear Calc 49.68 L, Est GFR (MDRD) Non-Af 56 L, BUN/Creatinine Ratio 18.4, Glucose 183 H, Hemoglobin A1c 7.0 H, Calcium 9.1, Phosphorus 3.0, Magnesium 1.9 Micro: Microbiology 04/15/25 18:00 Wound - Toe Skin and Soft Tissue MRSA/MSSA (PCR - Final Staphylococcus aureus Radiography Diagnostic Testing: Radiology Impression Foot X-Ray 04/15/25 16:13 IMPRESSION: 1. Similar appearance of the left foot compared to radiographs on 03/27/2025, including amputation and soft tissue swelling involving multiple toes. Consider bone scan or MRI if there is concern for osteomyelitis. 2. Mildly displaced fracture of the 4th proximal phalanx. Reading Location: [id number] Physical Exam Narrative GENERAL: cooperative HEENT: Atraumatic; normocephalic EYES; Anicteric, Normal Conjunctiva NECK; supple, normal thyroid, RESPIRATORY: Diminished to auscultation CARDIOVASCULAR: Regular S1 S2, GI: soft, normoactive bowel sounds, : No Renal angle tenderness; EXTREMITIES: Amputation of previous phalanges involving the left foot with residual swelling and erythema and warmth MUSCULOSKELETAL: no muscle wasting NEURO: Awake; no lateralizing signs. SKIN: As discussed above PSYCH; Flat affect Assessment & Plan Assessment/Plan (1) Diabetic foot ulcer associated with type 2 diabetes mellitus: QUALIFIERS: Diabetic foot ulcer location: toe Laterality: left Non-pressure ulcer stage: with bone involvement without evidence of necrosis Qualified Code(s): E11.621 - Type 2 diabetes mellitus with foot ulcer; L97.526 - 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 involvement without evidence of necrosis PLAN: Plan Patient is an 79-year-old gentleman presenting with erythema swelling and warmth involving the left foot 1. Diabetic foot infection involving the left foot. 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 Imaging studies obtained demonstrated soft tissue swelling involving multiple toes was however nonconclusive for osteomyelitis. Patient has been admitted to regular nursing floor started on broad-spectrum antibiotic therapy with meropenem and vancomycin. Ordered MRI to rule out osteomyelitis. Also ordered hemoglobin A1c ESR as well as CRP ? 04/16/2025; scheduled to undergo MRI to rule out 2. 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 Held patient oral agents. Started patient on long-acting insulin in addition to Accu-Cheks AC and at bedtime with sliding scale coverage. Patient was also placed on 1800 ADA diet ? 04/16/2025; patient blood glucose levels remain controlled we will continue with current treatment regimen 3. Paroxysmal A-fib ? Patient heart rate was relatively low. Will place patient on continuous telemetry monitoring. Patient is on metoprolol 100 mg twice daily will hold for heart rate less than 50 and blood pressure less than 100. Patient is on systemic anticoagulation apixaban did continue 4. Chronic kidney disease stage III ? Avoided nephrotoxic medications. Patient is on furosemide Lasix as well as HCTZ held 5. Essential hypertension ? Patient antihypertensives adjusted as above ordered hydralazine for systolic blood pressure greater than 160 6. Obstructive sleep apnea ? Consistent use of PAP therapy encouraged 7. 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 Patient is on methotrexate as well as infliximab held in view of patient infection 8. BPH with lower urinary obstructive symptoms - Patient treated with tamsulosin 9. Anemia ? Secondary to chronic disorder monitoring H&H and transfuse if patient becomes symptomatic or hemoglobin falls below 7 10. DVT prophylaxis ? Patient is on apixaban no need for additional measures Charges/Coding Visit Charges Inpatient E&M: 37324 Subs Hosp L2
[2025-04-16] MEDS: Vancomycin HCl 750 MG in 0.9% Normal Saline (250mL Bag) 250 ML 250 MG IV ×2 (07:49→18:14)
[2025-04-16] MEDS: Folic Acid 1 MG Tablet 4 MG PO (10:00)
[2025-04-16] MEDS: LORazepam 1 MG Tablet 2 MG PO (10:00)
[2025-04-16] MEDS: Multivitamins,Therapeutic Tablet 1 TABLET PO (10:01)
[2025-04-16] MEDS: Finasteride 5 MG Tablet PO (10:01)
[2025-04-16] MEDS: Metoprolol(XL)Succ 100 MG Tablet PO ×2 (10:01→22:51)
[2025-04-16] MEDS: amLODIPine 2.5 MG Tablet PO (10:02)
[2025-04-16] MEDS: Insulin Glargine-YFGN 100 UNIT/ML Pen SC (10:02)
[2025-04-16] MEDS: APIXABAN 5 MG TABLET PO ×2 (10:03→22:51)
--- NOTE | 2025-04-16 10:32 | PCM.CONS.GEN ---
Assessment & Plan Assessment/Plan (1) Chronic kidney disease: QUALIFIERS: Chronic kidney disease stage: stage 3 (moderate) Chronic kidney disease stage 3 subtype: stage 3b (GFR 30-44) Qualified Code(s): N18.32 - Chronic kidney disease, stage 3b (2) Diabetes mellitus with diabetic polyneuropathy: (3) Diabetic infection of left foot: PLAN: MRI pending. Wound cx pending. Wound pcr (+) mssa. Cont vanc/elliot for now. Will follow, thank you HPI Consult Data Date of Consult: 04/16/25 HPI Narrative Reason for Consultation: foot infection HPI Narrative: YESSI GRACE, is a 79 M with DM neuropathy, presented with several days worsening redness and swelling of toes on L foot. Prior L hallux amp. No fever or chills. No pain in foot. Was started on doxycycline recently but sx worsened. Came to ED, admitted on vanc/elliot, MRI planned. Full ROS performed and neg except as noted above. [facility] Medical History Kidney disease GERD (gastroesophageal reflux disease) Former smoker Hypertension Hypertension, well controlled Amputation toe Cataract Glaucoma CPAP (continuous positive airway pressure) dependence Sleep apnea Asthma Atrial fibrillation Nonhealing nonsurgical wound with fat layer exposed Essential hypertension RAJESH (obstructive sleep apnea) Ectopic atrial tachycardia Paroxysmal ventricular tachycardia Premature atrial contractions Cellulitis Psoriasis Arthritis Shortness of breath Hyperlipidemia Hypertension Premature ventricular contraction Supraventricular tachycardia Long-term use of high-risk medication Body mass index 31.0-31.9, adult Diabetes mellitus Secondary pulmonary arterial hypertension Methicillin susceptible Staphylococcus aureus infection Acute osteomyelitis involving ankle and foot Chronic osteomyelitis involving ankle and foot Home Medications ?Medication ?Instructions ?Recorded ?Last Taken ?Type finasteride 5 mg tablet 5 mg PO DAILY prostate 02/03/16 04/15/25 History tamsulosin 0.4 mg capsule 0.4 mg PO QHS prostate 02/03/16 04/14/25 History fluticasone propionate 50 2 spray NASAL DAILY PRN Nasal 06/30/18 04/15/25 History mcg/actuation nasal Congestion spray,suspension methotrexate sodium 2.5 mg tablet 7.5 mg PO Q7D arthritis 06/30/18 04/10/25 History pyridoxine (vitamin B6) 50 mg 100 mg PO QHS supplement 06/30/18 04/14/25 History tablet multivitamin with folic acid 400 1 tab PO DAILY supplement 10/20/18 04/15/25 History mcg tablet oxybutynin chloride 5 mg 5 mg PO QHS bladder 10/20/18 04/14/25 History tablet,extended release 24 hr folic acid 1 mg tablet 4 mg PO DAILY supplement 06/01/19 04/15/25 History glucosamine HCl 1,500 mg tablet 1,500 mg PO BID supplemt 02/20/20 04/15/25 History infliximab-dyyb 100 mg intravenous 100 mg IV UD psoriatic arthritis 05/30/20 04/08/25 History solution (Inflectra) cyanocobalamin (vitamin B-12) 100 500 mcg PO DAILY supplement 12/01/20 04/15/25 History mcg tablet amlodipine 2.5 mg tablet 2.5 mg PO DAILY #90 tabs 04/10/24 04/15/25 Rx metoprolol succinate 100 mg 100 mg PO BID bp/heart #180 tabs 04/10/24 04/15/25 Rx tablet,extended release 24 hr pravastatin 40 mg tablet 40 mg PO QHS cholesterol #90 tabs 04/10/24 04/14/25 Rx cholecalciferol (vitamin D3) 25 25 mcg PO DAILY supplement 06/20/24 04/13/25 History mcg (1,000 unit) tablet ginkgo biloba leaf extract 60 mg 60 mg PO DAILY 06/20/24 04/15/25 History capsule glipizide 10 mg tablet 10 mg PO DAILY dm 06/20/24 04/15/25 History lisinopril 40 mg tablet 40 mg PO DAILY #90 tabs 02/13/25 04/15/25 Rx furosemide 20 mg tablet (Lasix) 20 mg PO DAILY PRN edema 03/08/25 04/12/25 History hydrochlorothiazide 12.5 mg capsule 12.5 mg PO QDAY 03/08/25 04/15/25 History vitamins A,C,P-moqn-cuvhsj 4,296 1 cap PO QDAY 03/08/25 04/15/25 History mcg-226 mg-90 mg capsule (PreserVision AREDS) apixaban 5 mg tablet (Eliquis) 5 mg PO BID 04/15/25 04/14/25 History doxycycline hyclate 100 mg capsule 100 mg PO Q12H 04/15/25 04/15/25 History lactulose 10 gram/15 mL oral 15 ml PO QHS 04/15/25 04/12/25 History solution (Enulose) multivitamin (Daily Multi-Vitamin 1 tab PO DAILY 04/15/25 04/15/25 History tablet) Allergy/AdvReac Type Severity Reaction Status Date / Time cephalexin (From Keflex) Allergy Severe rash Verified 04/04/25 10:13 sulfamethoxazole (From Allergy Severe Rash Verified 04/04/25 10:13 Bactrim) trimethoprim (From Bactrim) Allergy Severe Rash Verified 04/04/25 10:13 Penicillins Allergy Rash Verified 04/04/25 10:13 doxycycline AdvReac Severe GI upset Verified 04/04/25 10:13 levofloxacin (From Levaquin) AdvReac Other Verified 04/04/25 10:13 Family History Father Cancer Prostate Mother Depression Uncle Myocardial infarction Son CVA (cerebral vascular accident) Surgical History History of bilateral cataract extraction History of foot surgery (~02/2023) excision of skin cancer History of hammer toe correction (09/26/20) History of partial amputation of toe History of hernia repair History of tonsillectomy and adenoidectomy Social History Smoking Status: Former smoker pack-years: 30 alcohol intake: current alcohol intake frequency: holidays/special occasions only substance use type: does not use caffeine: Yes Type: coffee Number of servings: 2 what type of physical activity do you participate in: running and weight training frequency: 1-2 times per week Physical Exam Const alert, oriented x3 and no apparent distress General Appearance: cooperative HEENT normocephalic and head/scalp atraumatic Eyes PERRL and EOMs intact bilaterally Neck supple and No nodes Resp normal air movement and clear to auscultation bilaterally Cardio regular rate and regular rhythm GI soft to palpation, non-tender and non-distended Extremity General Extremity: edema Skin Skin Narrative: L 3rd and 4th toes with swelling, redness, shallow ulceration Neuro CN's II-XII intact bilaterally Lab / Micro Data Attestation: I reviewed the patient's lab results. 04/16/25:34 04/16/25 05:34 Labs: Laboratory Results - last 24 hr 04/15/25 15:55: WBC 5.9, RBC 3.22 L, Hgb 11.4 L, Hct 32.5 L, MCV 100.9 H, MCH 35.4 H, MCHC 35.1, RDW Std Deviation 51.8 H, RDW Coeff of Jaimee 14.3, Plt Count 200, MPV 10.8, Immature Gran % (Auto) 0.300, Neut % (Auto) 59.2, Lymph % (Auto) 21.9, Holt % (Auto) 12.1 H, Eos % (Auto) 5.6 H, Baso % (Auto) 0.9, Absolute Neuts (auto) 3.5, Absolute Lymphs (auto) 1.28, Nucleated RBC % 0, ESR 21 H, Sodium 139, Potassium 3.9, Chloride 103, Carbon Dioxide 24.3, Anion Gap 12, BUN 26 H, Creatinine 1.38 H, Estim Creat Clear Calc 46.08 L, Est GFR (MDRD) Non-Af 51 L, BUN/Creatinine Ratio 19.1, Glucose 183 H, Lactic Acid 1.6, Calcium 9.4, C-React Prot Ext Range 30.20 H 04/15/25 18:56: ESR 10, C-React Prot Ext Range 30.60 H 04/15/25 21:10: POC Glucose 117 H 04/16/25 05:34: WBC 4.7, RBC 2.90 L, Hgb 10.2 L, Hct 29.2 L, MCV 100.7 H, MCH 35.2 H, MCHC 34.9, RDW Std Deviation 52.0 H, RDW Coeff of Jaimee 14.5, Plt Count 174, MPV 10.8, Immature Gran % (Auto) 0.200, Neut % (Auto) 52.4, Lymph % (Auto) 28.7, Holt % (Auto) 12.2 H, Eos % (Auto) 5.6 H, Baso % (Auto) 0.9, Absolute Neuts (auto) 2.5, Absolute Lymphs (auto) 1.34, Nucleated RBC % 0, Sodium 140, Potassium 3.7, Chloride 107, Carbon Dioxide 23.9, Anion Gap 9, BUN 24 H, Creatinine 1.28 H, Estim Creat Clear Calc 49.68 L, Est GFR (MDRD) Non-Af 56 L, BUN/Creatinine Ratio 18.4, Glucose 183 H, Hemoglobin A1c 7.0 H, Calcium 9.1, Phosphorus 3.0, Magnesium 1.9 Micro: Microbiology 04/15/25 20:30 Wound - Toe Gram Stain - Final 04/15/25 20:30 Wound - Toe Wound Culture - Preliminary Gram positive organism 04/15/25 18:00 Wound - Toe Skin and Soft Tissue MRSA/MSSA (PCR - Final Staphylococcus aureus Imaging Radiology Impression Foot X-Ray 04/15/25 16:13 IMPRESSION: 1. Similar appearance of the left foot compared to radiographs on 03/27/2025, including amputation and soft tissue swelling involving multiple toes. Consider bone scan or MRI if there is concern for osteomyelitis. 2. Mildly displaced fracture of the 4th proximal phalanx. Reading Location: [facility]
--- NOTE | 2025-04-16 11:19 | WOUNDNOTE ---
Pt currently off the unit for MRI.
[2025-04-16 11:25] LABS: Bedside Glucose 159 mg/dL (74-106)
--- NOTE | 2025-04-16 12:25 | PCM.CONS.GEN ---
Assessment & Plan Assessment/Plan (1) Cellulitis of left foot: (2) Non-pressure chronic ulcer of other part of left foot with fat layer exposed: PLAN: Reviewed findings with patient. Awaiting MRI results. Likely osteomyelitis is going to be noted but it is encouraging that there is no purulence deep within the wound. It is difficult to fully assess if the fracture was secondary to chronic osteomyelitis or just simple injury. The portion of the middle phalanx remains and osteomyelitis is present. Osteomyelitis which is chronic is also seen to the head of the third digit. The patient had been treated with conservative care with his wounds secondary to comorbidities and intolerance to many medications. We did discuss amputation of the left fourth toe and risks and complications associated with that. No guarantees were given. Patient understands possibility of another long-term wound. And he will discuss this with his . Podiatry will continue to follow and review this again with the patient tomorrow. Continue with local wound care and I did discuss this with Jacqueline Del Rio. (3) Diabetes mellitus with diabetic polyneuropathy: HPI Consult Data Date of Consult: 04/17/25 HPI Narrative Reason for Consultation: Ulceration of toe HPI Narrative: YESSI GRACE, is a 79 M who presents complaining of ulceration with cellulitis to the left fourth toe. The patient is known to me from my private office where he has been treated for many ulcerations of bilateral feet. In 2022, the left hallux was amputated and the patient had very slow healing which took over a year. He had local wound care as well as Apligraf. Multiple courses of antibiotics. The patient is complicated secondary to lymphedema, immunosuppressive therapy, methotrexate, etc. When the lesser toes, which many of them had partial amputations performed by other physicians, had opened up periodically with ulcerations, he prefers conservative therapy. The patient does not tolerate many antibiotics secondary to renal status as well as chronic diarrhea. The patient presented to [facility] emergency department secondary to swollen toe which did not seem to get better. [facility] Medical History Kidney disease GERD (gastroesophageal reflux disease) Former smoker Hypertension Hypertension, well controlled Amputation toe Cataract Glaucoma CPAP (continuous positive airway pressure) dependence Sleep apnea Asthma Atrial fibrillation Nonhealing nonsurgical wound with fat layer exposed Essential hypertension RAJESH (obstructive sleep apnea) Ectopic atrial tachycardia Paroxysmal ventricular tachycardia Premature atrial contractions Cellulitis Psoriasis Arthritis Shortness of breath Hyperlipidemia Hypertension Premature ventricular contraction Supraventricular tachycardia Long-term use of high-risk medication Body mass index 31.0-31.9, adult Diabetes mellitus Secondary pulmonary arterial hypertension Methicillin susceptible Staphylococcus aureus infection Acute osteomyelitis involving ankle and foot Chronic osteomyelitis involving ankle and foot Home Medications ?Medication ?Instructions ?Recorded ?Last Taken ?Type finasteride 5 mg tablet 5 mg PO DAILY prostate 02/03/16 04/15/25 History tamsulosin 0.4 mg capsule 0.4 mg PO QHS prostate 02/03/16 04/14/25 History fluticasone propionate 50 2 spray NASAL DAILY PRN Nasal 06/30/18 04/15/25 History mcg/actuation nasal Congestion spray,suspension methotrexate sodium 2.5 mg tablet 7.5 mg PO Q7D arthritis 06/30/18 04/10/25 History pyridoxine (vitamin B6) 50 mg 100 mg PO QHS supplement 06/30/18 04/14/25 History tablet multivitamin with folic acid 400 1 tab PO DAILY supplement 10/20/18 04/15/25 History mcg tablet oxybutynin chloride 5 mg 5 mg PO QHS bladder 10/20/18 04/14/25 History tablet,extended release 24 hr folic acid 1 mg tablet 4 mg PO DAILY supplement 06/01/19 04/15/25 History glucosamine HCl 1,500 mg tablet 1,500 mg PO BID supplemt 02/20/20 04/15/25 History infliximab-dyyb 100 mg intravenous 100 mg IV UD psoriatic arthritis 05/30/20 04/08/25 History solution (Inflectra) cyanocobalamin (vitamin B-12) 100 500 mcg PO DAILY supplement 12/01/20 04/15/25 History mcg tablet amlodipine 2.5 mg tablet 2.5 mg PO DAILY #90 tabs 04/10/24 04/15/25 Rx metoprolol succinate 100 mg 100 mg PO BID bp/heart #180 tabs 04/10/24 04/15/25 Rx tablet,extended release 24 hr pravastatin 40 mg tablet 40 mg PO QHS cholesterol #90 tabs 04/10/24 04/14/25 Rx cholecalciferol (vitamin D3) 25 25 mcg PO DAILY supplement 06/20/24 04/13/25 History mcg (1,000 unit) tablet ginkgo biloba leaf extract 60 mg 60 mg PO DAILY 06/20/24 04/15/25 History capsule glipizide 10 mg tablet 10 mg PO DAILY dm 06/20/24 04/15/25 History lisinopril 40 mg tablet 40 mg PO DAILY #90 tabs 02/13/25 04/15/25 Rx furosemide 20 mg tablet (Lasix) 20 mg PO DAILY PRN edema 03/08/25 04/12/25 History hydrochlorothiazide 12.5 mg capsule 12.5 mg PO QDAY 03/08/25 04/15/25 History vitamins A,C,V-zpkx-whybwh 4,296 1 cap PO QDAY 03/08/25 04/15/25 History mcg-226 mg-90 mg capsule (PreserVision AREDS) apixaban 5 mg tablet (Eliquis) 5 mg PO BID 04/15/25 04/14/25 History doxycycline hyclate 100 mg capsule 100 mg PO Q12H 04/15/25 04/15/25 History lactulose 10 gram/15 mL oral 15 ml PO QHS 04/15/25 04/12/25 History solution (Enulose) multivitamin (Daily Multi-Vitamin 1 tab PO DAILY 04/15/25 04/15/25 History tablet) Allergy/AdvReac Type Severity Reaction Status Date / Time cephalexin (From Keflex) Allergy Severe rash Verified 04/04/25 10:13 sulfamethoxazole (From Allergy Severe Rash Verified 04/04/25 10:13 Bactrim) trimethoprim (From Bactrim) Allergy Severe Rash Verified 04/04/25 10:13 Penicillins Allergy Rash Verified 04/04/25 10:13 doxycycline AdvReac Severe GI upset Verified 04/04/25 10:13 levofloxacin (From Levaquin) AdvReac Other Verified 04/04/25 10:13 Family History Father Cancer Prostate Mother Depression Uncle Myocardial infarction Son CVA (cerebral vascular accident) Surgical History History of bilateral cataract extraction History of foot surgery (~02/2023) excision of skin cancer History of hammer toe correction (09/26/20) History of partial amputation of toe History of hernia repair History of tonsillectomy and adenoidectomy Social History Smoking Status: Former smoker pack-years: 30 alcohol intake: current alcohol intake frequency: holidays/special occasions only substance use type: does not use caffeine: Yes Type: coffee Number of servings: 2 what type of physical activity do you participate in: running and weight training frequency: 1-2 times per week Physical Exam Narrative Patient was resting comfortably in bed getting ready to order lunch. MRI had just been performed. Const alert, oriented x3 and no apparent distress Extremity Extremity Narrative: +2 edema is noted to bilateral lower extremities which is baseline for the patient. He has had compressive therapy in the past but is not particularly compliant. Peripheral Pulses: Yes posterior tibial pulses present bilateral (Pulses can be difficult to locate secondary to the lymphedema.) and dorsalis pedis pulses present Right Lower Extremity: foot and digits Positive for inspection (Recent radiographs show the head of the proximal phalanx of the left fourth digit is fractured. It has shifted since previous radiographs in middle of March 2024. This is likely the cause of the hematoma that was expelled.) and other (Many digits have been partially amputated secondary to many diabetic foot ulcerations.) Left Lower Extremity: foot and digits Positive for other (Many digits have been partially amputated secondary to many diabetic foot ulcerations. Left hallux was amputated in 2022.) Skin Wounds: wounds noted open Wound Narrative: Small wound noted to the dorsal left 4th toe with granular base. There was a mild amount of minimal scabbing over top which was sharply debrided bedside. The area was squeezed and then a large gelatinous hematoma was expelled. There was no purulence. There was no malodor. No pieces of bone were expelled. Wound measures approximately 0.6 x 0.9 x 1.6 cm. Neuro Neuro Narrative: Peripheral neuropathy is noted and significant. Lab / Micro Data 04/17/25 06:50 04/17/25 06:50 Labs: Laboratory Results - last 24 hr 04/15/25 15:55: WBC 5.9, RBC 3.22 L, Hgb 11.4 L, Hct 32.5 L, MCV 100.9 H, MCH 35.4 H, MCHC 35.1, RDW Std Deviation 51.8 H, RDW Coeff of Jaimee 14.3, Plt Count 200, MPV 10.8, Immature Gran % (Auto) 0.300, Neut % (Auto) 59.2, Lymph % (Auto) 21.9, [place] % (Auto) 12.1 H, Eos % (Auto) 5.6 H, Baso % (Auto) 0.9, Absolute Neuts (auto) 3.5, Absolute Lymphs (auto) 1.28, Nucleated RBC % 0, ESR 21 H, Sodium 139, Potassium 3.9, Chloride 103, Carbon Dioxide 24.3, Anion Gap 12, BUN 26 H, Creatinine 1.38 H, Estim Creat Clear Calc 46.08 L, Est GFR (MDRD) Non-Af 51 L, BUN/Creatinine Ratio 19.1, Glucose 183 H, Lactic Acid 1.6, Calcium 9.4, C-React Prot Ext Range 30.20 H 04/15/25 18:56: ESR 10, C-React Prot Ext Range 30.60 H 04/15/25 21:10: POC Glucose 117 H 04/16/25 05:34: WBC 4.7, RBC 2.90 L, Hgb 10.2 L, Hct 29.2 L, MCV 100.7 H, MCH 35.2 H, MCHC 34.9, RDW Std Deviation 52.0 H, RDW Coeff of Jaimee 14.5, Plt Count 174, MPV 10.8, Immature Gran % (Auto) 0.200, Neut % (Auto) 52.4, Lymph % (Auto) 28.7, [place] % (Auto) 12.2 H, Eos % (Auto) 5.6 H, Baso % (Auto) 0.9, Absolute Neuts (auto) 2.5, Absolute Lymphs (auto) 1.34, Nucleated RBC % 0, Sodium 140, Potassium 3.7, Chloride 107, Carbon Dioxide 23.9, Anion Gap 9, BUN 24 H, Creatinine 1.28 H, Estim Creat Clear Calc 49.68 L, Est GFR (MDRD) Non-Af 56 L, BUN/Creatinine Ratio 18.4, Glucose 183 H, Hemoglobin A1c 7.0 H, Calcium 9.1, Phosphorus 3.0, Magnesium 1.9 04/16/25 06:09: POC Glucose 159 H Micro: Microbiology 04/15/25 20:30 Wound - Toe Gram Stain - Final 04/15/25 20:30 Wound - Toe Wound Culture - Preliminary Gram positive organism 04/15/25 18:00 Wound - Toe Skin and Soft Tissue MRSA/MSSA (PCR - Final Staphylococcus aureus Imaging Radiology Impression Foot X-Ray 04/15/25 16:13 IMPRESSION: 1. Similar appearance of the left foot compared to radiographs on 03/27/2025, including amputation and soft tissue swelling involving multiple toes. Consider bone scan or MRI if there is concern for osteomyelitis. 2. Mildly displaced fracture of the 4th proximal phalanx. Reading Location: [id number]
[2025-04-16] MEDS: Meropenem 1 GM in 0.9% Normal Saline (100mL MB+) 100 ML IV ×2 (12:27→22:48)
[2025-04-16 12:57] LABS: Bedside Glucose 166 mg/dL (74-106)
[2025-04-16 17:28] LABS: Bedside Glucose 181 mg/dL (74-106)
[2025-04-16] MEDS: Oxybutynin 5 MG Tablet PO (22:51)
[2025-04-16] MEDS: Tamsulosin HCl 0.4 MG Capsule PO (22:52)
[2025-04-16] MEDS: Pravastatin 40 MG Tablet PO (22:52)
[2025-04-16] MEDS: Pyridoxine HCl 100 MG Tablet PO (22:52)
[2025-04-16 23:15] LABS: Bedside Glucose 161 mg/dL (74-106)
[2025-04-17] VITALS (7 sets, daily range): BP systolic 139–144; BP diastolic 79–85; PULSE 80–87; RESP 16–18; TEMP 36.3–36.9; O2SAT 94–99; BMI 26.7
[2025-04-17] MEDS: 0.9% Saline Lock 10 ML Syringe IV ×2 (06:14→08:35)
[2025-04-17] MEDS: hydrALAZINE 25 MG Tablet PO ×2 (06:14→14:37)
[2025-04-17 06:37] LABS: Bedside Glucose 122 mg/dL (74-106)
--- NOTE | 2025-04-17 07:09 | WOUNDNOTE ---
wound photo: left 4th toe
[2025-04-17 07:11] LABS: Absolute Lymphocyte Count 1.18 X10^3/uL (0.83-4.51); Absolute Neutrophil Count 5.5 X10^3/uL (2.0-7.7); Basophil# 0.04 X10^3/uL; Basophil% 0.5 % (0-1); Eosinophil# 0.38 X10^3/uL; Eosinophils% 4.8 % (0-5); Hematocrit 37.1 % (40-54); Hemoglobin 12.6 g/dL (13.0-16.5); Lymphocyte # 1.18 X10^3/ul (0.83-4.51); Mean Corpuscular Hgb 33.9 pg (27.0-32.0); Mean Corpuscular Volume 99.7 fL (80-94); Mean Platelet Vol. 10.4 fl (6.2-12.0); Monocyte% 8.9 % (0-10); NRBC Flagged by Analyzer 0 % (0-5); Neutrophil # 5.51 X10^3/uL (2.7-7.7); Neutrophil % 70.3 % (47-70); Platelet Count 207 K/mm3 (150-450); RBC Distribution Width CV 14.6 % (11.6-14.6); RBC Distribution Width SD 52.2 fl (35.1-43.9); Red Blood Count 3.72 M/mm3 (4.6-6.2); White Blood Count 7.9 K/mm3 (4.4-11.0)
--- NOTE | 2025-04-17 07:14 | PCM.PN.HOSP ---
Reason for Visit Reason for Visit: Diagnoses Type 2 diabetes mellitus with diabetic polyneuropathy (04/15/25) Type 2 diabetes mellitus with foot ulcer (04/15/25) Type 2 diabetes mellitus with other skin complications (04/15/25) Local infection of the skin and subcutaneous tissue, unspecified (04/15/25) 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 involvement without evidence of necrosis (04/15/25) Chronic kidney disease, stage 3b (04/15/25) Subjective Subjective Patient underwent MRI of the left lower extremity results still pending. Patient was seen in consultation by both Dr. Thornton with podiatry and Dr. Berry with ID notes and recommendations reviewed Objective Data Objective Data Vital Signs: Vital Signs Temp Pulse Resp BP Pulse Ox O2 Del Method O2 Flow Rate 98.2 F 87 18 144/85 H 98 Room Air 2 04/17/25 05:51 04/17/25 06:14 04/17/25 05:51 04/17/25 06:14 04/17/25 05:51 04/17/25 05:51 04/16/25 19:54 Oxygen Flow Rate (L/min) 2 Oxygen Delivery Method Room Air Weight: 89.5 kg Body Mass Index (BMI) 26.7 Intake & Output: Intake and Output for Last 24 Hours 04/15/25 04/16/25 04/17/25 23:59 23:59 23:59 Intake Total 660.00 / 660.00 3100 / 3100 1120 / 1120 Output Total 300 / 300 Balance 660.00 / 660.00 2800 / 2800 1120 / 1120 Lab / Micro Data 04/17/25 06:50 04/17/25 06:50 Labs: Laboratory Results - last 24 hr 04/16/25 06:09: POC Glucose 159 H 04/16/25 12:25: POC Glucose 166 H 04/16/25 16:51: POC Glucose 181 H 04/16/25 22:47: POC Glucose 161 H 04/17/25 06:03: POC Glucose 122 H 04/17/25 06:50: WBC 7.9, RBC 3.72 L, Hgb 12.6 L, Hct 37.1 L, MCV 99.7 H, MCH 33.9 H, MCHC 34.0, RDW Std Deviation 52.2 H, RDW Coeff of Jaimee 14.6, Plt Count 207, MPV 10.4, Immature Gran % (Auto) 0.500, Neut % (Auto) 70.3 H, Lymph % (Auto) 15.0 L, [place] % (Auto) 8.9, Eos % (Auto) 4.8, Baso % (Auto) 0.5, Absolute Neuts (auto) 5.5, Absolute Lymphs (auto) 1.18, Nucleated RBC % 0 Micro: Microbiology 04/15/25 20:30 Wound - Toe Gram Stain - Final 04/15/25 20:30 Wound - Toe Wound Culture - Preliminary Gram positive organism 04/15/25 18:00 Wound - Toe Skin and Soft Tissue MRSA/MSSA (PCR - Final Staphylococcus aureus Physical Exam Narrative GENERAL: cooperative HEENT: Atraumatic; normocephalic EYES; Anicteric, Normal Conjunctiva NECK; supple, normal thyroid, RESPIRATORY: Diminished to auscultation CARDIOVASCULAR: Regular S1 S2, GI: soft, normoactive bowel sounds, : No Renal angle tenderness; EXTREMITIES: Amputation of previous phalanges involving the left foot with residual swelling and erythema and warmth MUSCULOSKELETAL: no muscle wasting NEURO: Awake; no lateralizing signs. SKIN: As discussed above PSYCH; Flat affect Assessment & Plan Assessment/Plan (1) Diabetic foot ulcer associated with type 2 diabetes mellitus: QUALIFIERS: Diabetic foot ulcer location: toe Laterality: left Non-pressure ulcer stage: with bone involvement without evidence of necrosis Qualified Code(s): E11.621 - Type 2 diabetes mellitus with foot ulcer; L97.526 - 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 involvement without evidence of necrosis PLAN: Plan Patient is an 79-year-old gentleman presenting with erythema swelling and warmth involving the left foot 1. Diabetic foot infection involving the left foot. 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 Imaging studies obtained demonstrated soft tissue swelling involving multiple toes was however nonconclusive for osteomyelitis. Patient has been admitted to regular nursing floor started on broad-spectrum antibiotic therapy with meropenem and vancomycin. Ordered MRI to rule out osteomyelitis. Also ordered hemoglobin A1c ESR as well as CRP ? 04/16/2025; scheduled to undergo MRI to rule out ? 04/17/2025;Patient underwent MRI of the left lower extremity results still pending. Patient was seen in consultation by both Dr. Thornton with podiatry and Dr. Berry with ID notes and recommendations reviewed 2. 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 Held patient oral agents. Started patient on long-acting insulin in addition to Accu-Cheks AC and at bedtime with sliding scale coverage. Patient was also placed on 1800 ADA diet ? 04/16/2025; patient blood glucose levels remain controlled we will continue with current treatment regimen 3. Paroxysmal A-fib ? Patient heart rate was relatively low. Will place patient on continuous telemetry monitoring. Patient is on metoprolol 100 mg twice daily will hold for heart rate less than 50 and blood pressure less than 100. Patient is on systemic anticoagulation apixaban did continue 4. Chronic kidney disease stage III ? Avoided nephrotoxic medications. Patient is on furosemide Lasix as well as HCTZ held ? 04/17/2025; patient kidney function did improve after potential nephrotoxic medications held we will continue with daily monitoring BMP 5. Essential hypertension ? Patient antihypertensives adjusted as above ordered hydralazine for systolic blood pressure greater than 160 6. Obstructive sleep apnea ? Consistent use of PAP therapy encouraged 7. 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 Patient is on methotrexate as well as infliximab held in view of patient infection 8. BPH with lower urinary obstructive symptoms - Patient treated with tamsulosin 9. Anemia ? Secondary to chronic disorder monitoring H&H and transfuse if patient becomes symptomatic or hemoglobin falls below 7 10. DVT prophylaxis ? Patient is on apixaban no need for additional measures Charges/Coding Visit Charges Inpatient E&M: 21687 Subs Hosp L2
[2025-04-17 07:48] LABS: Anion Gap 13 (5-15); BUN 20 mg/dL (4-19); BUN/Creat Ratio 16.8 RATIO (10-20); Calcium,Total 9.5 mg/dL (7.6-11.0); Carbon Dioxide 21.9 mmol/L (21.0-32.0); Chloride 106 mmol/L (98-108); Creatinine, Serum 1.19 mg/dL (0.70-1.20); EST Glomerular Filtration Rate 61 (>60); Estimated Creatinine Clearance 53.44 ml/min (50-250); Glucose 171 mg/dL (70-99); Potassium 4.4 mmol/L (3.3-5.1); Sodium Level 140 mmol/L (133-145)
[2025-04-17 07:51] LABS: Vancomycin, Trough Level 12.9 ug/mL (5.0-15.0)
[2025-04-17] MEDS: Vancomycin IV 1,000 MG/200 ML BAG 200 MG IV (08:35)
--- NOTE | 2025-04-17 08:37 | PCM.RX.CS ---
Consult Antibiotic Management Pharmacy has been consulted to manage selected antibiotic: Vancomycin Type of Intervention Type of Consult: Follow-up Suspected Infection Suspected Infection: Skin/Soft tissue Prior Doses of Antibiotics Prior Doses of Antibiotics Received/Current Regimen: 04/16/25 @ 0749 Vancomycin 750mg 04/16/25 @ 1900 Vancomycin 750mg Labs Labs: Sodium 140 mmol/L (133-145) 04/17/25 06:50 Potassium 4.4 mmol/L (3.3-5.1) 04/17/25 06:50 Chloride 106 mmol/L (98-108) 04/17/25 06:50 Carbon Dioxide 21.9 mmol/L (21.0-32.0) 04/17/25 06:50 Anion Gap 13 (5-15) 04/17/25 06:50 BUN 20 mg/dL (4-19) H 04/17/25 06:50 Creatinine 1.19 mg/dL (0.70-1.20) 04/17/25 06:50 Est GFR (MDRD) Non-Af 61 (>60) 04/17/25 06:50 BUN/Creatinine Ratio 16.8 RATIO (10-20) 04/17/25 06:50 Glucose 171 mg/dL (70-99) H 04/17/25 06:50 Vancomycin Trough 12.9 ug/mL (5.0-15.0) 04/17/25 06:50 Microbiology Microbiology: Microbiology 04/15/25 20:30 Wound - Toe Gram Stain - Final 04/15/25 20:30 Wound - Toe Wound Culture - Preliminary Gram positive organism 04/15/25 18:00 Wound - Toe Skin and Soft Tissue MRSA/MSSA (PCR - Final Staphylococcus aureus Dosing Weight Weight used for dosin kg Goal Trough Goal Trough: 15-20 mcg/mL Pharmacy Plan for Drug Dosing Pharmacy Plan for Drug Dosing: Increase Vancomyvin to 1000mg every 12 hours Pharmacy Service will continue to monitor and adjust dosing as required. Follow-Up Labs Follow-Up Labs: Trough: Vancomycin Date/Time Labs Ordered Labs to be done on [date and time ordered]: 04/18/25 @ 2100
[2025-04-17] MEDS: Folic Acid 1 MG Tablet 4 MG PO (08:38)
[2025-04-17] MEDS: Finasteride 5 MG Tablet PO (08:38)
[2025-04-17] MEDS: APIXABAN 5 MG TABLET PO (08:38)
[2025-04-17] MEDS: Multivitamins,Therapeutic Tablet 1 TABLET PO (08:39)
[2025-04-17] MEDS: Metoprolol(XL)Succ 100 MG Tablet PO (08:39)
[2025-04-17] MEDS: amLODIPine 2.5 MG Tablet PO (08:40)
[2025-04-17] MEDS: Insulin Glargine-YFGN 100 UNIT/ML Pen SC (08:40)
[2025-04-17] MEDS: Meropenem 1 GM in 0.9% Normal Saline (100mL MB+) 100 ML IV (10:31)
[2025-04-17] MEDS: Insulin Lispro 100 UNIT/ML INSULN.PEN SC (11:34)
[2025-04-17 11:43] LABS: Bedside Glucose 174 mg/dL (74-106)
--- NOTE | 2025-04-17 12:45 | PN_ITS ---
Subjective Subjective Patient was resting comfortably in bed while eating lunch. He states he is feeling well and he is hopeful to go home soon. He has been thinking about what we talked about yesterday and is not exactly sure which route he would like to go. He has a few more questions today. Objective Data Objective Data Dressing was intact recently from wound care nurse and there is scant serosanguineous drainage. Vital Signs: Vital Signs Temp Pulse Resp BP Pulse Ox O2 Del Method O2 Flow Rate 97.4 F L 80 16 139/84 H 94 Room Air 2 04/17/25 08:15 04/17/25 08:39 04/17/25 08:15 04/17/25 08:15 04/17/25 08:58 04/17/25 08:58 04/16/25 19:54 Oxygen Flow Rate (L/min) 2 Oxygen Delivery Method Room Air Weight: 89.5 kg Body Mass Index (BMI) 26.7 Intake & Output: Intake and Output for Last 24 Hours 04/15/25 04/16/25 04/17/25 23:59 23:59 23:59 Intake Total 660.00 / 660.00 3300.25 / 3300.25 1324.75 / 1324.75 Output Total 300 / 300 Balance 660.00 / 660.00 3000.25 / 3000.25 1324.75 / 1324.75 Lab / Micro Data 04/17/25 06:50 04/17/25 06:50 Labs: Laboratory Results - last 24 hr 04/16/25 12:25: POC Glucose 166 H 04/16/25 16:51: POC Glucose 181 H 04/16/25 22:47: POC Glucose 161 H 04/17/25 06:03: POC Glucose 122 H 04/17/25 06:50: WBC 7.9, RBC 3.72 L, Hgb 12.6 L, Hct 37.1 L, MCV 99.7 H, MCH 33.9 H, MCHC 34.0, RDW Std Deviation 52.2 H, RDW Coeff of Jaimee 14.6, Plt Count 207, MPV 10.4, Immature Gran % (Auto) 0.500, Neut % (Auto) 70.3 H, Lymph % (Auto) 15.0 L, [place] % (Auto) 8.9, Eos % (Auto) 4.8, Baso % (Auto) 0.5, Absolute Neuts (auto) 5.5, Absolute Lymphs (auto) 1.18, Nucleated RBC % 0, Sodium 140, Potassium 4.4, Chloride 106, Carbon Dioxide 21.9, Anion Gap 13, BUN 20 H, Creatinine 1.19, Estim Creat Clear Calc 53.44, Est GFR (MDRD) Non-Af 61, BUN/Creatinine Ratio 16.8, Glucose 171 H, Calcium 9.5, Vancomycin Trough 12.9 04/17/25 11:21: POC Glucose 174 H Micro: Microbiology 04/15/25 20:30 Wound - Toe Gram Stain - Final 04/15/25 20:30 Wound - Toe Wound Culture - Preliminary Staphylococcus aureus 04/15/25 20:30 Wound - Toe Anaerobic Culture - Preliminary Checking for anaerobes, further studies to follow. 04/15/25 18:00 Wound - Toe Skin and Soft Tissue MRSA/MSSA (PCR - Final Staphylococcus aureus Physical Exam Narrative Clinically great improvement is seen and still awaiting the MRI report. Skin Wounds: wounds noted Wound Narrative: Left fourth toe dorsally has open wound with 100% granular base. There is scant serosanguineous drainage. Erythema has greatly improved from yesterday and is mainly at the distal aspect of the toenail. Edema has also greatly improved and peeling skin surrounding the toe and the proximal portion of the lesser toes would be consistent with decreased edema. Minimal packing with gauze was noticed. Assessment & Plan Assessment/Plan (1) Non-pressure chronic ulcer of other part of left foot with necrosis of bone: PLAN: Reviewed findings with patient. Even though we are still awaiting the official report from the MRI, we did discuss that it is likely the toe is suffering from osteomyelitis. Treatment options were reviewed in detail which would include medical management with antibiotics as directed and managed by infectious disease. Risks and complications associated with this treatment option were reviewed in detail. The patient often does not tolerate antibiotics as he states he gets diarrhea quite often. He understands that he must take the antibiotics as directed by infectious disease and he cannot skip days when he is feeling badly. It is important and must be taken in an effort to help quiet the acute osteomyelitis and turn it to chronic. No guarantees were given with this. The other treatment option is for the fourth toe amputation. The patient was educated that it would be amputated at the metatarsal phalangeal joint. The last amputation the patient had undergone for the left hallux resulted in over a year of slow healing with an open wound. Patient is concerned about that being a result and it is very possible. He is on immunosuppressive therapy. The patient states at this point he prefers to treat this with conservative therapy and antibiotic management. If this does not work, he can always choose to have the toe amputated and this could be done on an outpatient basis. This was reviewed in detail with the patient. He feels that is the option that he would like to move forward with. Risks, complications, alternative treatments were reviewed in detail and no guarantees were given. Patient understands possibility of failure of treatment resulting in further need for surgery. All questions were answered today. The patient may be discharged from a podiatric standpoint and continue to follow in my office for wound care management. Surgery may be performed on an outpatient basis if needed. Dressing was reapplied today. Podiatry will follow on an outpatient basis as needed. (2) Cellulitis of left lower limb:
--- NOTE | 2025-04-17 13:34 | PCM.PN.ID ---
Physical Exam Narrative Feeling better, no fever, no n/v/d, foot feels better Const alert and no apparent distress General Appearance: cooperative Resp normal air movement and clear to auscultation bilaterally Cardio regular rate and regular rhythm GI soft to palpation, non-tender and non-distended Skin Skin Narrative: foot wrapped ID ID: Route of nutrition/ use of supplements: [] Nutritional Intake: [] IV Site: [] Skelton Catheter: [] Assessment & Plan Assessment/Plan (1) Chronic kidney disease: QUALIFIERS: Chronic kidney disease stage: stage 3 (moderate) Chronic kidney disease stage 3 subtype: stage 3b (GFR 30-44) Qualified Code(s): N18.32 - Chronic kidney disease, stage 3b (2) Diabetes mellitus with diabetic polyneuropathy: (3) Diabetic infection of left foot: PLAN: MRI report pending. Wound cx with staph aureus. Wound pcr (+) mssa. On vanc/elliot. Ok for discharge with 6 weeks po cefdinir for mssa coverage. ID followup in 2-3 weeks. Will follow
--- NOTE | 2025-04-17 13:40 | PCM.DC.SUM ---
Providers Date of Admission: 04/15/25 Date of Discharge: 04/17/25 Primary Care Physician: Dr. Jose Turner MD Consultations 04/15/25 18:28 Consult: Infectious Disease Routine Consulting Provider: Moise Berry Reason for Consult: DFU EMERGENT Consult: No Notified: Yes Date Notified: 04/16/25 Time Notified: 06:37 Method of Notification: Text Consult: Onc/Wound/legal administrator Routine Comment: Reason for Consult:: skin tear also on right Arm Consult: Podiatry Routine Consulting Provider: Xiomara Farley Reason for Consult: DFU EMERGENT Consult: No Notified: Yes Date Notified: 04/15/25 Time Notified: 18:39 Method of Notification: Verbal Reason For Visit: CELLULITIS Diagnosis Discharge Diagnosis (1) Chronic kidney disease: Status: Chronic Code(s): N18.9 - Chronic kidney disease, unspecified Qualifiers: Chronic kidney disease stage: stage 3 (moderate) Chronic kidney disease stage 3 subtype: stage 3b (GFR 30-44) Qualified Code(s): N18.32 - Chronic kidney disease, stage 3b (2) Diabetes mellitus with diabetic polyneuropathy: Status: Acute Code(s): E11.42 - Type 2 diabetes mellitus with diabetic polyneuropathy (3) Diabetic infection of left foot: Status: Acute Code(s): E11.628 - Type 2 diabetes mellitus with other skin complications; L08.9 - Local infection of the skin and subcutaneous tissue, unspecified Plan Patient is an 79-year-old gentleman presenting with erythema swelling and warmth involving the left foot 1. Diabetic foot infection involving the left foot. 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 Imaging studies obtained demonstrated soft tissue swelling involving multiple toes was however nonconclusive for osteomyelitis. Patient has been admitted to regular nursing floor started on broad-spectrum antibiotic therapy with meropenem and vancomycin. Ordered MRI to rule out osteomyelitis. Also ordered hemoglobin A1c ESR as well as CRP ? 04/16/2025; scheduled to undergo MRI to rule out ? 04/17/2025;Patient underwent MRI of the left lower extremity results still pending. Patient was seen in consultation by both Dr. Thornton with podiatry and Dr. Berry with ID notes and recommendations reviewed ? ID recommended for patient to be discharged with 6 weeks of p.o. cefdinir for MSSA 2. 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 Held patient oral agents. Started patient on long-acting insulin in addition to Accu-Cheks AC and at bedtime with sliding scale coverage. Patient was also placed on 1800 ADA diet ? 04/16/2025; patient blood glucose levels remain controlled we will continue with current treatment regimen 3. Paroxysmal A-fib ? Patient heart rate was relatively low. Will place patient on continuous telemetry monitoring. Patient is on metoprolol 100 mg twice daily will hold for heart rate less than 50 and blood pressure less than 100. Patient is on systemic anticoagulation apixaban did continue 4. Chronic kidney disease stage III ? Avoided nephrotoxic medications. Patient is on furosemide Lasix as well as HCTZ held ? 04/17/2025; patient kidney function did improve after potential nephrotoxic medications held we will continue with daily monitoring BMP 5. Essential hypertension ? Patient antihypertensives adjusted as above ordered hydralazine for systolic blood pressure greater than 160 ? Patient was on lisinopril and HCTZ discontinued given his impaired kidney function new prescription written for amlodipine 10 mg daily as well as hydralazine 25 mg p.o. twice daily patient instructed to follow-up with primary care physician in 2 weeks for adjustment of medication therapy if needed 6. Obstructive sleep apnea ? Consistent use of PAP therapy encouraged 7. 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 Patient is on methotrexate as well as infliximab held in view of patient infection 8. BPH with lower urinary obstructive symptoms - Patient treated with tamsulosin 9. Anemia ? Secondary to chronic disorder monitoring H&H and transfuse if patient becomes symptomatic or hemoglobin falls below 7 10. DVT prophylaxis ? Patient is on apixaban no need for additional measures Medications at Discharge Home Medications finasteride 5 mg tablet 5 mg PO DAILY prostate 02/03/16 tamsulosin 0.4 mg capsule 0.4 mg PO QHS prostate 02/03/16 fluticasone propionate 50 mcg/actuation nasal spray,suspension 2 spray NASAL DAILY PRN Nasal Congestion 06/30/18 methotrexate sodium 2.5 mg tablet 7.5 mg PO Q7D arthritis 06/30/18 pyridoxine (vitamin B6) 50 mg tablet 100 mg PO QHS supplement 06/30/18 multivitamin with folic acid 400 mcg tablet 1 tab PO DAILY supplement 10/20/18 oxybutynin chloride 5 mg tablet,extended release 24 hr 5 mg PO QHS bladder 10/20/18 folic acid 1 mg tablet 4 mg PO DAILY supplement 06/01/19 glucosamine HCl 1,500 mg tablet 1,500 mg PO BID supplemt 02/20/20 infliximab-dyyb 100 mg intravenous solution (Inflectra) 100 mg IV UD psoriatic arthritis 05/30/20 cyanocobalamin (vitamin B-12) 100 mcg tablet 500 mcg PO DAILY supplement 12/01/20 metoprolol succinate 100 mg tablet,extended release 24 hr 100 mg PO BID bp/heart #180 tabs 04/10/24 pravastatin 40 mg tablet 40 mg PO QHS cholesterol #90 tabs 04/10/24 cholecalciferol (vitamin D3) 25 mcg (1,000 unit) tablet 25 mcg PO DAILY supplement 06/20/24 ginkgo biloba leaf extract 60 mg capsule 60 mg PO DAILY 06/20/24 glipizide 10 mg tablet 10 mg PO DAILY dm 06/20/24 furosemide 20 mg tablet (Lasix) 20 mg PO DAILY PRN edema 03/08/25 vitamins A,C,A-vnmo-rwzccz 4,296 mcg-226 mg-90 mg capsule (PreserVision AREDS) 1 cap PO QDAY 03/08/25 apixaban 5 mg tablet (Eliquis) 5 mg PO BID 04/15/25 lactulose 10 gram/15 mL oral solution (Enulose) 15 ml PO QHS 04/15/25 multivitamin (Daily Multi-Vitamin tablet) 1 tab PO DAILY 04/15/25 L.acidophil,salivari-Bifido bifidum-Strep thermoph 175 mg capsule 1 cap PO BID 8 weeks #112 caps 04/17/25 acetaminophen 325 mg tablet 650 mg (2 x 325 mg) PO Q6H PRN PRN Pain 1-10 Or Fever >100.7 #0 tabs 04/17/25 amlodipine 10 mg tablet 10 mg PO DAILY 60 days #60 tabs 04/17/25 cefdinir 300 mg capsule 300 mg PO BID #80 caps 04/17/25 hydralazine 25 mg tablet 25 mg PO BID 60 days #120 tabs 04/17/25 Hospital Course Summary of Care Provided Minutes Spent on Discharge: 35 Physical Exam Narrative GENERAL: cooperative HEENT: Atraumatic; normocephalic EYES; Anicteric, Normal Conjunctiva NECK; supple, normal thyroid, RESPIRATORY: Diminished to auscultation CARDIOVASCULAR: Regular S1 S2, GI: soft, normoactive bowel sounds, : No Renal angle tenderness; EXTREMITIES: Left foot in surgical dressing MUSCULOSKELETAL: no muscle wasting NEURO: Awake; no lateralizing signs. SKIN: As discussed above PSYCH; Flat affect Weight / BMI Weight Weight: 89.5 kg Body Mass Index (BMI) 26.7 ABG / Lab / Microbiology Data 04/17/25 06:50 04/17/25 06:50 Laboratory: Laboratory Results - last 24 hr 04/16/25 16:51: POC Glucose 181 H 04/16/25 22:47: POC Glucose 161 H 04/17/25 06:03: POC Glucose 122 H 04/17/25 06:50: WBC 7.9, RBC 3.72 L, Hgb 12.6 L, Hct 37.1 L, MCV 99.7 H, MCH 33.9 H, MCHC 34.0, RDW Std Deviation 52.2 H, RDW Coeff of Jaimee 14.6, Plt Count 207, MPV 10.4, Immature Gran % (Auto) 0.500, Neut % (Auto) 70.3 H, Lymph % (Auto) 15.0 L, Grimes % (Auto) 8.9, Eos % (Auto) 4.8, Baso % (Auto) 0.5, Absolute Neuts (auto) 5.5, Absolute Lymphs (auto) 1.18, Nucleated RBC % 0, Sodium 140, Potassium 4.4, Chloride 106, Carbon Dioxide 21.9, Anion Gap 13, BUN 20 H, Creatinine 1.19, Estim Creat Clear Calc 53.44, Est GFR (MDRD) Non-Af 61, BUN/Creatinine Ratio 16.8, Glucose 171 H, Calcium 9.5, Vancomycin Trough 12.9 04/17/25 11:21: POC Glucose 174 H Microbiology: Microbiology 04/15/25 20:30 Wound - Toe Gram Stain - Final 04/15/25 20:30 Wound - Toe Wound Culture - Preliminary Staphylococcus aureus 04/15/25 20:30 Wound - Toe Anaerobic Culture - Preliminary Checking for anaerobes, further studies to follow. 04/15/25 18:00 Wound - Toe Skin and Soft Tissue MRSA/MSSA (PCR - Final Staphylococcus aureus D/C Instructions Discharge Diet: 1800 Calorie Control Diet Discharge Activity: Return to Normal Activity Call your doctor if you observe: Fever of 101 or Higher, Shortness of breath, Fainting spells and Chest pain DC O2, CPAP, BIPAP Needs Home O2 Discharge instructions: No Meaningful Use Info Meaningful Use Meaningful Use Diagnoses (Choose all that apply): None applicable Ischemic Stroke Statin Dosing Therapy Reference: STATIN DOSE THERAPY REFERENCE: * Patients > 75 years receive moderate or high dose statin therapy. * Patients 75 years or YOUNGER should receive HIGH intensity statin dose unless contraindicated. You will be required to document reason for non-treatment if statin daily dose does not meet guidelines. HIGH DOSE STATIN THERAPY DAILY Atorvastatin > than or = to 40 mg Rosuvastatin > than or = to 20 mg Amlodipine + Atorvastatin > than or = to 2.5/40 mg Ezetimibe + Simvastatin 10/80 mg Simvastatin 80mg Discharge Plan Admission Admit Date/Time: 04/15/25 17:21 Attending Provider: Artie Pepe Primary Care Provider: Jose Turner Consulting Providers: Xiomara Farley; Moise Berry Discharge Orders/Prescriptions Prescriptions: New cefdinir 300 mg capsule 300 mg PO BID Qty: 80 0RF hydralazine 25 mg Tablet 25 mg PO BID 60 Days Qty: 120 0RF L.acidoph,saliva-B.bif-S.therm 175 mg Capsule 1 cap PO BID 56 Days Qty: 112 0RF acetaminophen 325 mg Tablet 650 mg PO Q6H PRN PRN (Reason: Pain 1-10 Or Fever >100.7) Qty: 0 0RF amlodipine 10 mg tablet 10 mg PO DAILY 60 Days Qty: 60 0RF Continued Inflectra 100 mg recon soln 100 mg IV UD Patient Comments: IV Rx Instructions: 8 MG/KG, [id number] glucosamine HCl 1,500 mg tablet 1,500 mg PO BID Rx Instructions: administer with a meal cyanocobalamin (vitamin B-12) 100 mcg tablet 500 mcg PO DAILY glipizide 10 mg tablet 10 mg PO DAILY cholecalciferol (vitamin D3) 25 mcg (1,000 unit) tablet 25 mcg PO DAILY ginkgo biloba leaf extract 60 mg capsule 60 mg PO DAILY Rx Instructions: give with meal/snack PreserVision AREDS 4,296 mcg-226 mg-90 mg capsule 1 cap PO QDAY tamsulosin 0.4 MG capsule 0.4 mg PO QHS finasteride 5 MG tablet 5 mg PO DAILY methotrexate sodium 2.5 MG tablet 7.5 mg PO Q7D pyridoxine (vitamin B6) 50 MG tablet 100 mg PO QHS fluticasone propionate 1 SPRAY spray,suspension 2 spray NASAL DAILY PRN (Reason: Nasal Congestion) folic acid 1 mg tablet 4 mg PO DAILY oxybutynin chloride 5 MG tablet 5 mg PO QHS multivitamin with folic acid 1 TABLET tablet 1 tab PO DAILY furosemide [Lasix] 20 mg tablet 20 mg PO DAILY PRN (Reason: edema) lactulose [Enulose] 10 gram/15 mL solution 15 ml PO QHS Eliquis 5 mg tablet 5 mg PO BID multivitamin [Daily Multi-Vitamin] Tablet 1 tab PO DAILY metoprolol succinate 100 mg tablet extended release 24 hr 100 mg PO BID Qty: 180 3RF pravastatin 40 mg tablet 40 mg PO QHS Qty: 90 3RF Discontinued hydrochlorothiazide 12.5 mg capsule 12.5 mg PO QDAY doxycycline hyclate 100 mg capsule 100 mg PO Q12H amlodipine 2.5 mg tablet 2.5 mg PO DAILY Qty: 90 3RF lisinopril 40 mg tablet 40 mg PO DAILY Qty: 90 3RF Referrals / Follow Up: Jose Turner MD [Primary Care Provider] - Within 2 Weeks Xiomara Farley DPM [Med Staff - Active Staff] - Within 1 Week Moise Berry MD [Med Staff - Active Staff] - Within 2 Weeks Disposition Disposition (needs filled in before D/C Order can be placed): Home Health Service Charges/Coding Visit Charges Inpatient E&M: 31526 Disch Hosp >30min
--- NOTE | 2025-04-17 14:08 | CASEMGMT ---
SILVIO RAMÍREZ reviewed DC order, into pt room. Pt present in room, pt agreeable to discussing DC planning. Pt states he has DME at home, has a walker but does not use it. Pt states he has BGM and supplies at home, denies any DC needs. Requested to have the nurse go over his wound care before discharging. SILVIO RAMÍREZ spoke with nurse, she will review wound care and provide supplies to go home with. Pt denied further questions at this time.
== END 2025-04-17 15:06 | disposition home health service (06) | DRG 638 ==
LOC: ED 17:29 → MS3 17:40
PROVIDERS: Internal Medicine Infectious Disease; Admitting Provider Internal Medicine; Emergency Provider Surgery; PCP Family Medicine; Visit Provider Internal Medicine
DX: E11.69 Type 2 diabetes mellitus with other specified complication (principal); L03.116 Cellulitis of left lower limb; M86.172 Other acute osteomyelitis, left ankle and foot; E11.621 Type 2 diabetes mellitus with foot ulcer; N18.32 Chronic kidney disease, stage 3b; L40.50 Arthropathic psoriasis, unspecified; I12.9 Hypertensive chronic kidney disease with stage 1 through stage 4 chronic kidney disease, or unspecified chronic kidney disease; I48.0 Paroxysmal atrial fibrillation; E11.22 Type 2 diabetes mellitus with diabetic chronic kidney disease; G47.33 Obstructive sleep apnea (adult) (pediatric); I73.00 Raynaud's syndrome without gangrene; E78.5 Hyperlipidemia, unspecified; E11.628 Type 2 diabetes mellitus with other skin complications; L97.522 Non-pressure chronic ulcer of other part of left foot with fat layer exposed; E11.42 Type 2 diabetes mellitus with diabetic polyneuropathy; K21.9 Gastro-esophageal reflux disease without esophagitis; Z87.891 Personal history of nicotine dependence; Z79.84 Long term (current) use of oral hypoglycemic drugs; N13.9 Obstructive and reflux uropathy, unspecified; Z79.01 Long term (current) use of anticoagulants; Z82.49 Family history of ischemic heart disease and other diseases of the circulatory system; Z79.631 Long term (current) use of antimetabolite agent; Z99.89 Dependence on other enabling machines and devices; Z79.899 Other long term (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; L08.9 Local infection of the skin and subcutaneous tissue, unspecified
CPT/HCPCS: 36415; 73630; 73720; 80048; 80202; 82962; 83036; 83605; 83735; 84100; 85025; 85652; 86140; 87040; 87070; 87075; 87077; 87186; 87205; 87640; 94668; 97161; 97165; 97802; 99285; A9575; J2185; A4216

== ENCOUNTER → 2025-05-14 | Outpatient (CLI) | payer MEDICARE, OTHER, SELFPAY ==
[2025-05-14 13:26] LABS: Anion Gap 11 (5-15); BUN 26 mg/dL (4-19); BUN/Creat Ratio 17.6 RATIO (10-20); Calcium,Total 9.8 mg/dL (7.6-11.0); Carbon Dioxide 23.2 mmol/L (21.0-32.0); Chloride 104 mmol/L (98-108); Glucose 204 mg/dL (70-99); Potassium 4.3 mmol/L (3.3-5.1)
[2025-05-14 14:27] LABS: Hematocrit 35.4 % (40-54); Hemoglobin 12.3 g/dL (13.0-16.5); Mean Corp Hgb Conc 34.7 g/dL (32-36); Mean Corpuscular Volume 97.5 fL (80-94); Mean Platelet Vol. 11.6 fl (6.2-12.0); Platelet Count 208 K/mm3 (150-450); RBC Distribution Width CV 13.3 % (11.6-14.6); RBC Distribution Width SD 47.7 fl (35.1-43.9); Red Blood Count 3.63 M/mm3 (4.6-6.2); White Blood Count 6.5 K/mm3 (4.4-11.0)
== END | disposition home or self-care (01) ==
LOC: MTLAB 09:36
PROVIDERS: PCP Family Medicine; Referring Provider Internal Medicine Infectious Disease; Visit Provider Internal Medicine Infectious Disease
DX: M86.9 Osteomyelitis, unspecified (principal)
CPT/HCPCS: 36415; 80048; 85027; 85652

== ENCOUNTER → 2025-05-24 | Outpatient (CLI) | payer MEDICARE, OTHER, SELFPAY ==
[2025-05-24 16:23] LABS: PSA,Total- Diagnostic 0.57 ng/mL (0.00-4.00)
== END | disposition home or self-care (01) ==
LOC: MTLAB 11:30
PROVIDERS: PCP Family Medicine; Referring Provider Urology; Visit Provider Urology
DX: C61 Malignant neoplasm of prostate (principal)
CPT/HCPCS: 36415; 84153

== ENCOUNTER 2025-05-28 09:58 | Outpatient (RCR) | payer MEDICARE, OTHER, SELFPAY ==
[2025-05-28 12:33] LABS: AST(SGOT) 47 U/L (<=37); Alanine Aminotransfer ALT/SGPT 49 U/L (<=46)
[2025-05-28 12:36] LABS: CRP < 3.00 mg/L (0.0-3.0); Hematocrit 38.9 % (40-54); Hemoglobin 13.2 g/dL (13.0-16.5); Immature Granulocytes Count 0.020 X10^3/uL (0.0-0.0); Mean Corp Hgb Conc 33.9 g/dL (32-36); Mean Corpuscular Volume 93.7 fL (80-94); Mean Platelet Vol. 10.6 fl (6.2-12.0); NRBC Flagged by Analyzer 0 % (0-5); Platelet Count 308 K/mm3 (150-450); RBC Distribution Width CV 12.4 % (11.6-14.6); RBC Distribution Width SD 42.8 fl (35.1-43.9); Red Blood Count 4.15 M/mm3 (4.6-6.2); White Blood Count 7.4 K/mm3 (4.4-11.0)
== END 2025-06-13 18:00 | disposition home or self-care (01) ==
LOC: MTLAB 09:58
PROVIDERS: PCP Family Medicine; Referring Provider Internal Medicine Rheumatology; Visit Provider Internal Medicine Rheumatology
DX: L40.50 Arthropathic psoriasis, unspecified (principal); M17.0 Bilateral primary osteoarthritis of knee; M50.90 Cervical disc disorder, unspecified, unspecified cervical region; D53.9 Nutritional anemia, unspecified; D64.89 Other specified anemias; L30.1 Dyshidrosis [pompholyx]; L81.4 Other melanin hyperpigmentation; L82.1 Other seborrheic keratosis; L21.9 Seborrheic dermatitis, unspecified; L40.3 Pustulosis palmaris et plantaris; L57.8 Other skin changes due to chronic exposure to nonionizing radiation; L85.3 Xerosis cutis; L57.0 Actinic keratosis; R80.8 Other proteinuria; Z79.899 Other long term (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; Z79.631 Long term (current) use of antimetabolite agent; R35.1 Nocturia; Z79.620 Long term (current) use of immunosuppressive biologic; Z87.39 Personal history of other diseases of the musculoskeletal system and connective tissue; Z85.828 Personal history of other malignant neoplasm of skin; R39.198 Other difficulties with micturition; Z79.01 Long term (current) use of anticoagulants; R94.4 Abnormal results of kidney function studies; L40.52 Psoriatic arthritis mutilans
CPT/HCPCS: 36415; 82565; 84450; 84460; 85025; 85652; 86140

== ENCOUNTER 2025-06-07 10:21 | Outpatient (CLI) | payer MEDICARE, OTHER, SELFPAY ==
[2025-06-07 10:57] VITALS: BP 113/57; PULSE 62; RESP 16; TEMP 36.1; O2SAT 97; BMI 25.4
[2025-06-07] MEDS: DiphenhydrAMINE 50 MG/ML Syringe 12.5 MG IV (11:37)
[2025-06-07] MEDS: NORMAL SALINE 0.9% IV (12:12)
[2025-06-07] MEDS: INFLIXIMAB DYYB IV (12:12)
[2025-06-07 14:47] VITALS: BP 108/56; PULSE 78; RESP 16; TEMP 36.8; O2SAT 97
== END 2025-06-07 23:59 | disposition home or self-care (01) ==
LOC: MEDOUTP 10:21
PROVIDERS: PCP Family Medicine; Referring Provider Internal Medicine Rheumatology; Visit Provider Internal Medicine Rheumatology
DX: L40.50 Arthropathic psoriasis, unspecified (principal)
CPT/HCPCS: 96413; 96415; A4216; Q5103

== ENCOUNTER → 2025-06-11 | Outpatient (CLI) | payer MEDICARE, OTHER, SELFPAY ==
[2025-06-11 16:05] LABS: AST(SGOT) 50 U/L (<=37); Alanine Aminotransfer ALT/SGPT 65 U/L (<=46)
== END | disposition home or self-care (01) ==
LOC: MTLAB 13:42
PROVIDERS: PCP Family Medicine; Referring Provider Internal Medicine Rheumatology; Visit Provider Internal Medicine Rheumatology
DX: R79.89 Other specified abnormal findings of blood chemistry (principal)
CPT/HCPCS: 36415; 84450; 84460

== ENCOUNTER 2025-06-21 15:50 | Emergency (ER) | payer MEDICARE, OTHER, SELFPAY ==
[2025-06-21 15:52] VITALS: BP 175/126; PULSE 99; RESP 18; TEMP 35.9; O2SAT 99
--- NOTE | 2025-06-21 16:22 | CT_ITS ---
PROCEDURE: ABDOMEN/PELVIS W IV CONT ONLY 06/21/2025 REASON FOR EXAM: ABDOMINAL CRAMPING TECHNIQUE: ABDOMEN/PELVIS W IV CONT ONLY Coronal and Sagittal reconstruction series were provided. CONTRAST: 100 cc of Isovue 370 intravenous contrast One or more dose reduction techniques were used (e.g., Automated exposure control, adjustment of the mA and/or kV according to patient size, use of iterative reconstruction technique. RADIATION DOSE SUMMARY: CTDlvol: 35 mGy DLP: 689 mGycm COMPARISON: 07/20/2021 FINDINGS: Lung bases: Hyperinflated. Clear. Liver: Mildly enlarged measuring up to 18.2 cm craniocaudally. Mild diffuse hepatic steatosis. No obvious hepatic mass. Gallbladder: Unremarkable. No biliary ductal dilatation Spleen: Normal size. Pancreas: There is a calcified stone measuring 1.1 x 0.9 cm in the distal main pancreatic duct causing mild proximal dilatation of the main pancreatic duct measuring up to 7 mm. No obvious pancreatic mass visualized. Adrenals: Unremarkable. Kidneys: Normal renal sizes. No hydronephrosis. Left kidney lower pole cyst measures 1.8 x 2.0 x 1.9 cm. Bladder: Unremarkable. Reproductive Organs: Brachytherapy seeds are present. Bowel: Colonic diverticulosis without diverticulitis. Chronic inflammatory changes of the sigmoid colon. No bowel obstruction. Appendix: Normal. Lymph nodes: Unremarkable. Vasculature: The abdominal aorta and IVC are normal. Peritoneum / Retroperitoneum: No free fluid or air. Bones: Degenerative changes of the spine. CT/Abdomen/Pelvis W IV Cont ONLY IMPRESSION: 1. Calcified 1.1 x 0.9 cm stone in the distal main pancreatic duct causing mild dilatation of the proximal main pancreatic duct measuring 7 mm. 2. Left renal cyst measures 2.0 cm. 3. Chronic inflammatory changes of the sigmoid colon. 4. No acute findings in the abdomen or pelvis as imaged. Reading Location: [facility]
--- NOTE | 2025-06-21 16:29 | EX.ED.DYSGE1 ---
HPI History of Present Illness Chief Complaint: GI Bleed Narrative Narrative: Chief complaint and HPI: Bright red blood per rectum. 79-year-old male with past medical history of atrial fibrillation on Eliquis, DM, arthritis presents for evaluation of bright red blood per rectum. Patient states he has a history of constipation. States he has been constipated for the past 4 days. Has only had boswell soup to help with his constipation. Does not take any bowel regimen. Patient states he had the sensation that he needed to have a bowel movement today. States he sat on the toilet for approximately 1 hour and when she had a bowel movement with bright red blood per rectum. States after that he had multiple episodes of bright red blood per rectum. He endorses abdominal cramping. He denies any fever, chills, shortness of breath, chest pain, nausea, vomiting, dysuria. No history of diverticulosis or colitis. States his last colonoscopy was years ago in [place] that was unremarkable. Review of systems: See HPI Medications: As listed on the chart Allergies: As listed on the chart PFSH: Per chart Vital signs: As listed on the chart. Reviewed. Physical exam: Gen: A&O x3, NAD Head: Normocephalic, atraumatic Eyes: No sclera icterus, conjunctiva clear ENT: Moist mucous membranes Neck: Trachea midline, No JVD CV: RRR, no murmurs, no peripheral edema Resp: Lungs CTA BL, no w/r/c GI: Abd soft, non-distended, mildly tender to palpation in the bilateral lower quadrants, no r/r/g Rectal: Normal external examination. No evidence of hemorrhoids or fissures. Normal tone and sensation. No masses, fluctuance, or tenderness. No pain out of proportion. No stool or blood on gloved finger-mucosa present. Musc: Full ROM, no deformity Skin: Warm, dry Neuro: Alert, oriented, grossly intact, sensation intact Psych: Cooperative, appropriate mood and affect [facility] Medical History Kidney disease GERD (gastroesophageal reflux disease) Former smoker Hypertension Hypertension, well controlled Amputation toe Cataract Glaucoma CPAP (continuous positive airway pressure) dependence Sleep apnea Asthma Atrial fibrillation Nonhealing nonsurgical wound with fat layer exposed Essential hypertension RAJESH (obstructive sleep apnea) Ectopic atrial tachycardia Paroxysmal ventricular tachycardia Premature atrial contractions Cellulitis Psoriasis Arthritis Shortness of breath Hyperlipidemia Hypertension Premature ventricular contraction Supraventricular tachycardia Long-term use of high-risk medication Body mass index 31.0-31.9, adult Diabetes mellitus Secondary pulmonary arterial hypertension Methicillin susceptible Staphylococcus aureus infection Acute osteomyelitis involving ankle and foot Chronic osteomyelitis involving ankle and foot Home Medications ?Medication ?Instructions ?Recorded ?Last Taken ?Type finasteride 5 mg tablet 5 mg PO DAILY prostate 02/03/16 06/21/25 History tamsulosin 0.4 mg capsule 0.4 mg PO QHS prostate 02/03/16 06/20/25 History fluticasone propionate 50 2 spray NASAL DAILY PRN Nasal 06/30/18 04/15/25 History mcg/actuation nasal Congestion spray,suspension methotrexate sodium 2.5 mg tablet 7.5 mg PO Q7D arthritis 06/30/18 06/19/25 History pyridoxine (vitamin B6) 50 mg 100 mg PO QHS supplement 06/30/18 06/20/25 History tablet oxybutynin chloride 5 mg 5 mg PO QHS bladder 10/20/18 06/20/25 History tablet,extended release 24 hr folic acid 1 mg tablet 4 mg PO DAILY supplement 06/01/19 04/15/25 History glucosamine HCl 1,500 mg tablet 1,500 mg PO BID supplemt 02/20/20 06/21/25 History infliximab-dyyb 100 mg intravenous 100 mg IV UD psoriatic arthritis 05/30/20 06/07/25 History solution (Inflectra) cyanocobalamin (vitamin B-12) 100 500 mcg PO DAILY supplement 12/01/20 06/21/25 History mcg tablet cholecalciferol (vitamin D3) 25 25 mcg PO DAILY supplement 06/20/24 06/21/25 History mcg (1,000 unit) tablet ginkgo biloba leaf extract 60 mg 60 mg PO DAILY 06/20/24 06/21/25 History capsule glipizide 10 mg tablet 10 mg PO DAILY dm 06/20/24 04/15/25 History Held on 06/21/25. Instructions: MD Ordered vitamins A,C,T-gwyl-yhucwz 4,296 1 cap PO QDAY 03/08/25 06/21/25 History mcg-226 mg-90 mg capsule (PreserVision AREDS) apixaban 5 mg tablet (Eliquis) 2.5 mg PO BID 04/15/25 06/21/25 History multivitamin (Daily Multi-Vitamin 1 tab PO DAILY 04/15/25 06/21/25 History tablet) L.acidophil,salivari-Bifido 1 cap PO BID 8 weeks #112 caps 04/17/25 06/21/25 Rx bifidum-Strep thermoph 175 mg capsule acetaminophen 325 mg tablet 650 mg (2 x 325 mg) PO Q6H PRN PRN 04/17/25 Unknown Rx Pain 1-10 Or Fever >100.7 #0 tabs pravastatin 40 mg tablet 40 mg PO QHS cholesterol #90 tabs 05/15/25 06/20/25 Rx amlodipine 2.5 mg tablet 2.5 mg PO DAILY 06/21/25 06/21/25 History bimatoprost 0.01 % eye drops 1 drp ophthalmic (eye) DAILY 06/21/25 06/21/25 History (Vida) carvedilol 25 mg tablet 25 mg PO BID 06/21/25 06/21/25 History empagliflozin 10 mg tablet 10 mg PO DAILY 06/21/25 06/21/25 History (Jardiance) fluocinolone 0.01 % topical body 1 applic topical BID 06/21/25 06/21/25 History oil Allergy/AdvReac Type Severity Reaction Status Date / Time cephalexin (From Keflex) Allergy Severe rash Verified 06/21/25 15:51 sulfamethoxazole (From Allergy Severe Rash Verified 06/21/25 15:51 Bactrim) trimethoprim (From Bactrim) Allergy Severe Rash Verified 06/21/25 15:51 cefdinir Allergy Mild Abd Verified 06/21/25 15:52 cramps/diarrhea Penicillins Allergy Rash Verified 06/21/25 15:51 doxycycline AdvReac Severe GI upset Verified 06/21/25 15:51 levofloxacin (From Levaquin) AdvReac Other Verified 06/21/25 15:51 Family History Father Cancer Prostate Mother Depression Uncle Myocardial infarction Son CVA (cerebral vascular accident) Surgical History History of bilateral cataract extraction History of foot surgery (~02/2023) excision of skin cancer History of hammer toe correction (09/26/20) History of partial amputation of toe History of hernia repair History of tonsillectomy and adenoidectomy Social History Smoking Status: Former smoker pack-years: 30 alcohol intake: current alcohol intake frequency: holidays/special occasions only substance use type: does not use caffeine: Yes Type: coffee Number of servings: 2 what type of physical activity do you participate in: running and weight training frequency: 1-2 times per week EXAM Physical Exam Const Vital Signs: 06/21/25 15:52 06/21/25 17:51 06/21/25 19:00 Temperature 96.6 F L Temperature Source Temporal Pulse Rate 99 91 Respiratory Rate 18 16 Blood Pressure 175/126 H 150/78 H 146/81 H Blood Pressure Mean 142 102 102 Pulse Ox 99 99 97 Oxygen Delivery Method Room Air Room Air Room Air MDM MDM MDM Narrative Medical decision making narrative: 79-year-old male with past medical history of atrial fibrillation on Eliquis, DM, arthritis presents for evaluation of bright red blood per rectum. Patient states he has a history of constipation. States he has been constipated for the past 4 days. Patient states he had the sensation that he needed to have a bowel movement today. States he sat on the toilet for approximately 1 hour and when she had a bowel movement with bright red blood per rectum. States after that he had multiple episodes of bright red blood per rectum. He endorses abdominal cramping. Differential diagnosis includes but is not limited to diverticulosis, diverticulitis, constipation, hemorrhoidal bleeding, electrolyte abnormality, anemia, dysplastic lesion. NS bolus ordered. Patient offered pain medicine but declined. GI bleed workup ordered including CT abdomen pelvis. CBC with mild leukocytosis 11.5. No anemia. Hemoglobin 15.7. Platelet count unremarkable. CMP shows CKD with a BUN of 43 and a creatinine of 1.92. In November his BUN was 26 his creatinine was 1.92. Patient states he has been eating and drinking well. I spoke with patient as well as his . They state that he is currently seeing a buy boat operator due to his CKD. They state his last BUN was in the 40s. They do not know what his last creatinine was. Given that his BUN is currently 43 I suspect this is his baseline. Lactic acid unremarkable. Patient has baseline transaminitis. AST of 55 and ALT of 69. His lipase is 450. Patient not endorsing any right upper quadrant or epigastric abdominal pain. UA is negative for UTI. Patient's stool occult positive. CT abdomen pelvis shows calcified 1.1 x 0.9 cm stone in the distal main pancreatic duct causing mild dilation of the proximal main pancreatic duct measuring 7 mm. This is likely why his lipase is elevated. Left renal cyst. Chronic inflammatory changes of the sigmoid colon. No acute findings on CT abdomen and pelvis. Diverticulosis without diverticulitis. On reevaluation, patient has had no bright red blood per rectum while being here in the emergency department. Again not endorsing any epigastric abdominal pain. States he has been eating and drinking well. Given the findings on CT abdomen pelvis as well as the GI bleed, Dr. Sullivan with GI was consulted. Patient was discussed. Given that patient is asymptomatic from the elevated lipase as well as the pancreatic stone, no need for any emergent intervention. Recommend following up in his office. Same recommendation for the GI bleed. Patient and his are updated of all the results and the findings. Patient stable to discharge home. Patient was educated return back to the ED if bleeding reoccurs or abdominal pain worsens. He confirmed understanding of plan. Impression: 1. Bright red blood per rectum 2. Incidental pancreatic stone with elevated lipase 3. CKD 4. Mild chronic transaminitis Lab Data Labs: Laboratory Results - last 24 hr 06/21/25 16:45 WBC 11.5 H RBC 4.63 Hgb 15.7 Hct 43.5 MCV 94.0 MCH 33.9 H MCHC 36.1 H RDW Std Deviation 41.9 RDW Coeff of Jaimee 12.7 Plt Count 234 MPV 10.5 Immature Gran % (Auto) 0.300 Neut % (Auto) 84.3 H Lymph % (Auto) 8.8 L Greer % (Auto) 5.6 Eos % (Auto) 0.7 Baso % (Auto) 0.3 Absolute Neuts (auto) 9.7 H Absolute Lymphs (auto) 1.01 Nucleated RBC % 0 Sodium 135 Potassium 4.8 Chloride 101 Carbon Dioxide 19.1 L Anion Gap 15 BUN 43 H Creatinine 1.92 H Estim Creat Clear Calc 33.12 L Est GFR (MDRD) Non-Af 35 L BUN/Creatinine Ratio 22.6 H Glucose 202 H Lactic Acid 1.5 Calcium 11.2 H Total Bilirubin 1.03 AST 55 H ALT 69 H Alkaline Phosphatase 98 Total Protein 8.4 Albumin 4.5 Globulin 3.9 Albumin/Globulin Ratio 1.2 Lipase 450 H Urine Color Yellow Urine Clarity Clear Urine pH 5.0 Ur Specific [place] 1.020 Urine Protein 30 H Urine Glucose (UA) 1000 H Urine Ketones Negative Urine Occult Blood 10 H Urine Nitrite Negative Urine Bilirubin Negative Urine Urobilinogen Normal Ur Leukocyte Esterase Negative Urine RBC 0-5 SEEN Urine WBC 0-5 SEEN Ur Squamous Epith Cells 0-5 SEEN Urine Bacteria 0 SEEN Urine Mucus 0 SEEN Radiography Diagnostic Testing: Clinical Impression(s) from Imaging Studies Abdomen/Pelvis CT 06/21/25 16:22 IMPRESSION: 1. Calcified 1.1 x 0.9 cm stone in the distal main pancreatic duct causing mild dilatation of the proximal main pancreatic duct measuring 7 mm. 2. Left renal cyst measures 2.0 cm. 3. Chronic inflammatory changes of the sigmoid colon. 4. No acute findings in the abdomen or pelvis as imaged. Reading [facility] Discharge Plan Triage Chief Complaint: GI Bleed ED Provider: Edgar Gudino Dx/Rx/DC Orders Prescriptions: No Action Inflectra 100 mg recon soln 100 mg IV UD Patient Comments: IV Rx Instructions: 8 MG/KG, [id number] glucosamine HCl 1,500 mg tablet 1,500 mg PO BID Rx Instructions: administer with a meal cyanocobalamin (vitamin B-12) 100 mcg tablet 500 mcg PO DAILY glipizide 10 mg tablet 10 mg PO DAILY cholecalciferol (vitamin D3) 25 mcg (1,000 unit) tablet 25 mcg PO DAILY ginkgo biloba leaf extract 60 mg capsule 60 mg PO DAILY Rx Instructions: give with meal/snack PreserVision AREDS 4,296 mcg-226 mg-90 mg capsule 1 cap PO QDAY tamsulosin 0.4 MG capsule 0.4 mg PO QHS finasteride 5 MG tablet 5 mg PO DAILY methotrexate sodium 2.5 MG tablet 7.5 mg PO Q7D pyridoxine (vitamin B6) 50 MG tablet 100 mg PO QHS fluticasone propionate 1 SPRAY spray,suspension 2 spray NASAL DAILY PRN (Reason: Nasal Congestion) folic acid 1 mg tablet 4 mg PO DAILY oxybutynin chloride 5 MG tablet 5 mg PO QHS amlodipine 2.5 mg tablet 2.5 mg PO DAILY carvedilol 25 mg tablet 25 mg PO BID fluocinolone 0.01 % oil 1 applic topical BID Jardiance 10 mg tablet 10 mg PO DAILY Lumigan 0.01 % drops 1 drp ophthalmic (eye) DAILY Eliquis 5 mg tablet 2.5 mg PO BID multivitamin [Daily Multi-Vitamin] Tablet 1 tab PO DAILY L.acidoph,saliva-B.bif-S.therm 175 mg Capsule 1 cap PO BID 56 Days Qty: 112 0RF acetaminophen 325 mg Tablet 650 mg PO Q6H PRN PRN (Reason: Pain 1-10 Or Fever >100.7) Qty: 0 0RF pravastatin 40 mg tablet 40 mg PO QHS Qty: 90 3RF Primary Care Provider: Jose Turner Referrals: Jose Turner MD [Primary Care Provider] - Print Language: Kyrgyz
[2025-06-21] MEDS: 0.9% Normal Saline (1000mL) 1,000 ML 999 ML IV (16:37)
[2025-06-21 16:50] LABS: Mucous, Urine 0 SEEN /hpf (<or=2+)
[2025-06-21 16:54] LABS: Hematocrit 43.5 % (40-54); Hemoglobin 15.7 g/dL (13.0-16.5); Immature Granulocytes Count 0.040 X10^3/uL (0.0-0.0); Mean Corp Hgb Conc 36.1 g/dL (32-36); Mean Corpuscular Volume 94.0 fL (80-94); Mean Platelet Vol. 10.5 fl (6.2-12.0); NRBC Flagged by Analyzer 0 % (0-5); Platelet Count 234 K/mm3 (150-450); RBC Distribution Width CV 12.7 % (11.6-14.6); RBC Distribution Width SD 41.9 fl (35.1-43.9); Red Blood Count 4.63 M/mm3 (4.6-6.2); White Blood Count 11.5 K/mm3 (4.4-11.0)
[2025-06-21 17:10] LABS: Color, Urine Yellow (Yellow); Glucose, Dipstick 1000 mg/dl (Normal); Ketone-Dipstick Negative (Negative); Leukocyte Esterase-Dipstick Negative /ul (Negative); Nitrite-Dipstick Negative (Negative); Occult Blood-Urine 10 /ul (Negative); Protein-Dipstick 30 mg/dl (Negative); Specific Gravity, Urine 1.020 (1.002-1.030); Urine Bilirubin Dipstick Negative (Negative)
[2025-06-21 17:20] VITALS: BMI 24.4
[2025-06-21 17:29] LABS: Red Blood Cells-Urine 0-5 SEEN /hpf (0-5); Squamous Epithelial Cells - UA 0-5 SEEN /hpf (0-5)
[2025-06-21 17:36] LABS: AST(SGOT) 55 U/L (<=37); Alanine Aminotransfer ALT/SGPT 69 U/L (<=46); Albumin, Serum 4.5 g/dL (3.4-4.8); Alkaline Phosphatase 98 U/L (40-129); Anion Gap 15 (5-15); BUN 43 mg/dL (4-19); BUN/Creat Ratio 22.6 RATIO (10-20); Calcium,Total 11.2 mg/dL (7.6-11.0); Carbon Dioxide 19.1 mmol/L (21.0-32.0); Chloride 101 mmol/L (98-108); Estimated Creatinine Clearance 33.12 ml/min (50-250); Globulin 3.9 g/dL (2.2-4.2); Glucose 202 mg/dL (70-99); Potassium 4.8 mmol/L (3.3-5.1)
[2025-06-21 17:51] VITALS: BP 150/78; O2SAT 99
[2025-06-21 18:00] LABS: Lipase 450 U/L (13-75)
[2025-06-21 19:00] VITALS: BP 146/81; PULSE 91; RESP 16; O2SAT 97
[2025-06-21 20:05] VITALS: BP 148/68; PULSE 70; RESP 18; TEMP 36.7; O2SAT 97
== END 2025-06-21 20:08 | disposition home or self-care (01) ==
PROVIDERS: Emergency Provider Surgery; PCP Family Medicine; Visit Provider Surgery
DX: K92.2 Gastrointestinal hemorrhage, unspecified (principal); I48.91 Unspecified atrial fibrillation; E11.22 Type 2 diabetes mellitus with diabetic chronic kidney disease; R10.9 Unspecified abdominal pain; N18.9 Chronic kidney disease, unspecified; E78.5 Hyperlipidemia, unspecified; R74.01 Elevation of levels of liver transaminase levels; Z87.891 Personal history of nicotine dependence; I12.9 Hypertensive chronic kidney disease with stage 1 through stage 4 chronic kidney disease, or unspecified chronic kidney disease; Z79.01 Long term (current) use of anticoagulants; K59.00 Constipation, unspecified; J45.909 Unspecified asthma, uncomplicated; K21.9 Gastro-esophageal reflux disease without esophagitis; Z79.899 Other long term (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; K86.89 Other specified diseases of pancreas
CPT/HCPCS: 74177; 80053; 81001; 82274; 83605; 83690; 85025; 96360; 99283; Q9967; A4216

== ENCOUNTER 2025-06-28 19:00 | Inpatient (IN) | payer MEDICARE, OTHER, SELFPAY ==
[2025-06-28 19:00] VITALS: BP 117/72; PULSE 98; RESP 16; TEMP 36.2; O2SAT 99; BMI 24.1
[2025-06-28 21:08] VITALS: BP 151/92; PULSE 84; RESP 20; O2SAT 100
--- NOTE | 2025-06-28 21:19 | ED.VIS.GI ---
HPI HPI - GI History of Present Illness Chief Complaint: Abd Pain Narrative Narrative: Patient is an 80-year-old male presenting to emergency department for abnormal outpatient labs. Patient has been since past medical history as below. Patient states that he was just here for rectal bleeding last week. States that he was feeling weak still since he was discharged and followed up with his primary care doctor who ordered labs. He was told that his lipase was elevated and to come to the ED. He denies fever, chills, chest pain, worsening shortness of breath, nausea, vomiting, diarrhea, dysuria or hematuria. He endorses some lower abdominal pain but no upper abdominal pain. Denies any alcohol use. Denies any history of pancreatitis. [facility] Medical History Kidney disease GERD (gastroesophageal reflux disease) Former smoker Hypertension Hypertension, well controlled Amputation toe Cataract Glaucoma CPAP (continuous positive airway pressure) dependence Sleep apnea Asthma Atrial fibrillation Nonhealing nonsurgical wound with fat layer exposed Essential hypertension RAJESH (obstructive sleep apnea) Ectopic atrial tachycardia Paroxysmal ventricular tachycardia Premature atrial contractions Cellulitis Psoriasis Arthritis Shortness of breath Hyperlipidemia Hypertension Premature ventricular contraction Supraventricular tachycardia Long-term use of high-risk medication Body mass index 31.0-31.9, adult Diabetes mellitus Secondary pulmonary arterial hypertension Methicillin susceptible Staphylococcus aureus infection Acute osteomyelitis involving ankle and foot Chronic osteomyelitis involving ankle and foot Home Medications ?Medication ?Instructions ?Recorded ?Last Taken ?Type finasteride 5 mg tablet 5 mg PO DAILY prostate 02/03/16 06/21/25 History tamsulosin 0.4 mg capsule 0.4 mg PO QHS prostate 02/03/16 06/20/25 History fluticasone propionate 50 2 spray NASAL DAILY PRN Nasal 06/30/18 04/15/25 History mcg/actuation nasal Congestion spray,suspension methotrexate sodium 2.5 mg tablet 7.5 mg PO Q7D arthritis 06/30/18 06/19/25 History pyridoxine (vitamin B6) 50 mg 100 mg PO QHS supplement 06/30/18 06/20/25 History tablet oxybutynin chloride 5 mg 5 mg PO QHS bladder 10/20/18 06/20/25 History tablet,extended release 24 hr folic acid 1 mg tablet 4 mg PO DAILY supplement 06/01/19 04/15/25 History glucosamine HCl 1,500 mg tablet 1,500 mg PO BID supplemt 02/20/20 06/21/25 History infliximab-dyyb 100 mg intravenous 100 mg IV UD psoriatic arthritis 05/30/20 06/07/25 History solution (Inflectra) cyanocobalamin (vitamin B-12) 100 500 mcg PO DAILY supplement 12/01/20 06/21/25 History mcg tablet cholecalciferol (vitamin D3) 25 25 mcg PO DAILY supplement 06/20/24 06/21/25 History mcg (1,000 unit) tablet ginkgo biloba leaf extract 60 mg 60 mg PO DAILY 06/20/24 06/21/25 History capsule glipizide 10 mg tablet 10 mg PO DAILY dm 06/20/24 04/15/25 History Held on 06/21/25. Instructions: MD Ordered vitamins A,C,H-jmiu-mvugzl 4,296 1 cap PO QDAY 03/08/25 06/21/25 History mcg-226 mg-90 mg capsule (PreserVision AREDS) apixaban 5 mg tablet (Eliquis) 2.5 mg PO BID 04/15/25 06/21/25 History Held on 06/28/25. Instructions: GI Bleed multivitamin (Daily Multi-Vitamin 1 tab PO DAILY 04/15/25 06/21/25 History tablet) acetaminophen 325 mg tablet 650 mg (2 x 325 mg) PO Q6H PRN PRN 04/17/25 Unknown Rx Pain 1-10 Or Fever >100.7 #0 tabs pravastatin 40 mg tablet 40 mg PO QHS cholesterol #90 tabs 05/15/25 06/20/25 Rx amlodipine 2.5 mg tablet 2.5 mg PO DAILY 06/21/25 06/21/25 History bimatoprost 0.01 % eye drops 1 drp ophthalmic (eye) DAILY 06/21/25 06/21/25 History (Lumigan) carvedilol 25 mg tablet 25 mg PO BID 06/21/25 06/21/25 History empagliflozin 10 mg tablet 10 mg PO DAILY 06/21/25 06/21/25 History (Jardiance) fluocinolone 0.01 % topical body 1 applic topical BID 06/21/25 06/21/25 History oil Lactobacillus acidophilus 1 cap PO BID 06/28/25 Unknown History (Acidophilus capsule) potassium chloride 20 mEq 20 meq PO DAILY 06/28/25 Unknown History tablet,extended release(part/cryst) spironolactone 25 1 tab PO DAILY 06/28/25 Unknown History mg-hydrochlorothiazide 25 mg tablet Allergy/AdvReac Type Severity Reaction Status Date / Time cephalexin (From Keflex) Allergy Severe rash Verified 06/28/25 19:02 sulfamethoxazole (From Allergy Severe Rash Verified 06/28/25 19:02 Bactrim) trimethoprim (From Bactrim) Allergy Severe Rash Verified 06/28/25 19:02 cefdinir Allergy Mild Abd Verified 06/28/25 19:02 cramps/diarrhea Penicillins Allergy Rash Verified 06/28/25 19:02 doxycycline AdvReac Severe GI upset Verified 06/28/25 19:02 levofloxacin (From Levaquin) AdvReac Other Verified 06/28/25 19:02 Family History Father Cancer Prostate Mother Depression Uncle Myocardial infarction Son CVA (cerebral vascular accident) Surgical History History of bilateral cataract extraction History of foot surgery (~02/2023) excision of skin cancer History of hammer toe correction (09/26/20) History of partial amputation of toe History of hernia repair History of tonsillectomy and adenoidectomy Social History Smoking Status: Former smoker pack-years: 30 alcohol intake: current alcohol intake frequency: holidays/special occasions only substance use type: does not use caffeine: Yes Type: coffee Number of servings: 2 what type of physical activity do you participate in: running and weight training frequency: 1-2 times per week ROS ROS ED ROS Narrative see HPI EXAM Physical Exam Narrative Exam Narrative: Vital signs: Reviewed General: Alert and oriented. No acute distress HEENT: Head is normocephalic and atraumatic, sinuses nontender, pupils equal round and reactive. Nares are patent. Oropharynx and throat exams normal. Neck: Supple without lymphadenopathy nontender Cardiovascular: Regular rate and rhythm, no murmurs. No rubs or gallops. Normal S1 and S2 Respiratory: Clear to auscultation bilaterally. No wheezes, rales, rhonchi Abdominal: Soft and nontender. Normal bowel sounds. No guarding or rebound. Nonsurgical abdomen Extremities: No tenderness. No bruising. Normal range of motion. Normal sensation. Skin: No rash or redness. Neurological: Cranial nerves II through XII are grossly intact. Normal strength and sensation. Normal cerebellar function The rest of the physical exam is unremarkable Const Vital Signs: 06/28/25 19:00 06/28/25 21:06 06/28/25 21:08 Temperature 97.2 F L Temperature Source Temporal Pulse Rate 98 84 Respiratory Rate 16 20 H Respiratory Effort Normal Non-Labored Respiratory Pattern Normal Blood Pressure 117/72 151/92 H Blood Pressure Mean 87 111 Pulse Ox 99 100 Oxygen Delivery Method Room Air Room Air 06/28/25 23:00 Temperature Temperature Source Pulse Rate 76 Respiratory Rate 20 H Respiratory Effort Respiratory Pattern Blood Pressure 130/83 H Blood Pressure Mean 98 Pulse Ox 100 Oxygen Delivery Method Room Air MDM MDM MDM Narrative Medical decision making narrative: Patient is an 80-year-old male presenting emergency department for abnormal outpatient labs. Patient was seen and examined. Vitals are stable. Patient resting bed comfortably no acute distress. Differential includes but is not limited to: Gallstone pancreatitis, Triclyceride related, alcohol use (denies use) CT abdomen ordered. Fluids ordered. Labs were just done this morning, did not need to repeat these. Lipase is noted in the 1999's. No leukocytosis. CT shows a 12 mm stone in the pancreatic head which is obstructing the main pancreatic duct and CBD with pancreatic ductal dilatation. There is evidence of superimposed acute on chronic pancreatitis. I spoke to GI, Dr. Sullivan, who will perform ERCP tomorrow recommended admission to hospitalist. Discussed findings with patient and at bedside. He still denies any significant pain and denies analgesia at this time. Is agreeable with admission. Patient admitted to Dr. Dr ward for further management. Clinical impression: Acute pancreatitis History & Record Review Discussion w/independent historian: Patient and Family Additional record(s) reviewed:: Prior labs Radiography Diagnostic Testing: Clinical Impression(s) from Imaging Studies Abdomen/Pelvis CT 06/28/25 21:40 IMPRESSION: Sequelae of chronic pancreatitis with multiple parenchymal calcifications. Redemonstrated prominent 12 mm stone in the region of the pancreatic head which appears to be obstructing at the confluence of the main pancreatic duct and CBD, with interval increased pancreatic ductal dilatation. Probable additional small stone in the accessory pancreatic duct may also be obstructive. Mild peripancreatic fat infiltration/edema is suggestive of superimposed acute on chronic pancreatitis. Reading Location: [id number] Discharge Plan Disposition Disposition: Acute Care Hospital [facility] Discharge Date/Time: 06/29/25 00:11
[2025-06-28] MEDS: 0.9% Normal Saline (1000mL) 1,000 ML 1000 ML IV (21:23)
--- OUTSIDE RECORDS SUMMARY | 2025-06-28 21:24 | XMS RPT_ITS | CCD ---
Author Organization [facility] Care Team Providers Care Industrial Service Technician Name Role Phone Russell Tomasa CWOART S Unavailable MD Teri, Larry S Unavailable Zach Turner Primary Care Provider [phone] Zach Turner Primary Care Provider Zach Turner MD Primary Care Provider Dr. Zach Turner Primary Care Provider Dr. Zach Turner Referring Provider [phone] Dr. Betito Torres Attending Provider [facility] DENTISTRY TEACHER, DENTISTRY TEACHER-C Merrill Carroll Attending Provider Dr. Zach Turner Primary Care Provider Dr. Zach Turner Referring Provider Zach Turner MD Primary Care Provider Dr. Zach Turner Primary Care Provider Dr. Zach Turner Referring Provider ANGELA Zacarias Attending Provider Zach Turner MD Primary Care Provider Dr. Zach Turner Primary Care Provider Dr. Zach Turner Referring Provider ANGELA Zacarias Attending Provider Dr. Zach Turner Primary Care Provider Dr. Mervin White Emergency Provider [phone] Eddie Hendricks Admit Provider Dr. Eddie Hendricks Attending Provider Dr. Eddie Hendricks Other Provider Dr. Chevy Bautista Other Provider [phone] HORN, PATRICK DPM Primary Care Unavailable HORN, PATRICK DPM Admitting Unavailable TURNER, ZACH A Consulting Unavailable HORN, PATRICK DPM Attending Unavailable PROVIDER, UNKNOWN Consulting Unavailable HORN, PATRICK DPM Attending Unavailable HORN, PATRICK DPM Primary Care Unavailable HORN, PATRICK DPM Admitting Unavailable TURNER, ZACH A Consulting Unavailable PROVIDER, UNKNOWN Consulting Unavailable TURNER, ZACH A Primary Care Unavailable Johnny BENITEZ, Zach A Primary Care Provider [phone] Zach Turner Primary Care Provider [phone] Johnny BENITEZ, Dr. Garcia Primary Care Provider Johnny BENITEZ, Dr. Garcia Attending Provider [phone] Jonhny BENITEZ, Dr. Garcia Referring Provider [phone] Pablo BENITEZ, Dr. Coco Carter Attending Provider Dr. Coco Shah MD Referring Provider [phone] Odalis Rust Attending Provider Johnny BENITEZ, Zach Bhakta Primary Care Provider Johnny BENITEZ, Dr. Garcia Primary Care Provider Pablo BENITEZ, Dr. Coco Carter Attending Provider Dr. Coco Shah MD Referring Provider Johnny BENITEZ, Dr. Garcia Referring Provider Dr. Chevy Gary MD Attending Provider Martine DPM, Dr. Solano Attending Provider Martine DPM, Dr. Solano Referring Provider Shahab BURKETT, Dr. Hernández Emergency Provider My BENITEZ, Dr. Alva Admit Provider Unavailable My BENITEZ, Dr. Alva Attending Provider Unavaila ble Martine DPM, Dr. Solano Other Provider Kristi BENITEZ, Dr. Phipps Other Provider My BENITEZ, Dr. Alva Other Provider Unavailable Johnny BENITEZ, Dr. Garcia Primary Care Provider Pablo BENITEZ, Dr. Coco Carter Attending Provider Pablo BENITEZ, Dr. Coco Carter Referring Provider Johnny BENITEZ, Dr. Garcia Referring Provider [phone] Kristi BENITEZ, Dr. Phipps Attending Provider Kristi BENITEZ, Dr. Phipps Referring Provider [phone] Edgar BENITEZ, Dr. Memo Gillette Attending Provider [phone] Edgar BENITEZ, Dr. Memo Gillette Referring Provider REJI, CHRISTINA Attending Unavailable REJI, CHRISTINA Referring Unavailable TURNER, ZACH A Primary Care Unavailable REJI, CHRISTINA Attending Unavailable REJI, CHRISTINA Referring Unavailable TURNER, ZACH A Primary Care Unavailable TURNER, ZACH A Primary Care Unavailable REJI, CHRISTINA Attending Unavailable TURNER, ZACH A Referring Unavailable SELF, SELF Referring Unavailable STAINBROOK JR JR, COCO Attending Unavaila ble TURNER, ZACH A Primary Care Unavailable SELF, SELF Referring Unavailable STAINBROOK JR JR, COCO Attending Unavaila ble TURNER, ZACH A Primary Care Unavailable SELF, SELF Referring Unavailable STAINBROOK JR JR, COCO Attending Unavaila ble TURNER, ZACH A Primary Care Unavailable REJI, CHRISTINA Attending Unavailable STAINBROOK JR JR, COCO Referring Unavaila ble TURNER, ZACH A Primary Care Unavailable GEORGINA MOORE Attending Unavailable TURNER, ZCAH Primary Care Unavailable GEORGINA MOORE Attending Unavailable TURNER, ZACH Primary Care Unavailable GEORGINA MOORE Attending Unavailable TURNER, ZACH Primary Care Unavailable Stainbrook Jr., Coco Carter Referring Unavaila ble Stainbrook Jr., Coco Carter Attending Unavaila ble Turner, Zach Primary Care Unavailable Stainbrook Jr., Coco Carter Referring Unavaila ble Stainbrook Jr., Coco Carter Attending Unavaila ble Turner, Zach Primary Care Unavailable Turner, Zach Primary Care Unavailable Stainbrook Jr., Coco Carter Referring Unavaila ble Stainbrook Jr., Coco Carter Attending Unavaila ble Stainbrook Jr., Coco Carter Referring Unavaila ble Stainbrook Jr., Coco Carter Attending Unavaila ble Turner, Zach Primary Care Unavailable Stainbrook Jr., Coco Carter Referring Unavaila ble Stainbrook Jr., Coco G Attending Unavaila ble Turner, Zach Primary Care Unavailable Turner, Zach Primary Care Unavailable Turner, Zach Attending Unavailable Turner, Zach Referring Unavailable Bhanu Lopes Attending Unavailable Turner, Zach Primary Care Unavailable Edgar Gudino Attending Unavailabl e Turner, Zach Primary Care Unavailable Turner, Zach Primary Care Unavailable Stainbronancy Wilson, Coco Carter Referring Unavaila ble Stainbrook Jr., Coco Carter Attending Unavaila ble Stainbrook Jr., Coco Carter Referring Unavaila ble Stainbrook Jr., Coco Carter Attending Unavaila ble Turner, Zach Primary Care Unavailable Latonia Berry Attending Unavailable Latonia Berry Referring Unavailable Turner, Zach Primary Care Unavailable Memo Hernández Attending Unavailable Memo Hernández Referring Unavailable Turner, Zach Primary Care Unavailable Stainbrook Jr., Coco Carter Attending Unavaila ble Stainbrook Jr., Coco Carter Referring Unavaila ble Turner, Zach Primary Care Unavailable Turner, Zach Primary Care Unavailable Stainbrook Jr., Coco Carter Attending Unavaila ble Stainbrook Jr.Coco Referring Unavaila ble Turner, Zach Primary Care Unavailable Patrick Rojas Attending Unavailable Patrick Rojas Referring Unavailable Turner, Zach Primary Care Unavailable Turner, Zach Attending Unavailable Turner, Zach Primary Care Unavailable Turner, Zach Attending Unavailable Luz Hodge Attending Unavailable Turner, Zach Referring Unavailable Turner, Zach Primary Care Unavailable Chevy Gary Attending Unavailable Chevy Gary Referring Unavailable Turner, Zach Primary Care Unavailable Stainfabienne Wilson, Coco Carter Attending Unavaila ble Stainbrook Jr.Coco Referring Unavaila ble Turner, Zach Primary Care Unavailable Turner, Zach Primary Care Unavailable Coco Pepe Attending Unavailable Patrick Rojas Consulting Unavailable Coco Pepe Admitting Unavailable Latonia Berry Consulting Unavailable Jose Pearce Attending Unavailable Jose Pearce Referring Unavailable Turner, Zach Primary Care Unavailable Coco Pepe Attending Unavailable Coco Pepe Admitting Unavailable Patrick Rojas Consulting Unavailable Turner, Zach Primary Care Unavailable Latonia Berry Consulting Unavailable Coco Pepe Consulting Unavailable Turner, Zach Primary Care Unavailable Pablo Wilson, Coco Carter Referring Unavaila ble Stainbrook Jr., Coco Carter Attending Unavaila ble Turner, Zach Primary Care Unavailable Odalis Lara Attending Unavailable Turner, Zach Referring Unavailable Turner, Zach Primary Care Unavailable Chevy Gary Attending Unavailable Turner, Zach Referring Unavailable Stainbrook Jr., Coco Carter Referring Unavaila ble Stainbrook Jr., Coco Carter Attending Unavaila ble Turner, Zach Primary Care Unavailable Stainbrook Jr., Coco Carter Referring Unavaila ble Stainbrook Jr., Coco Carter Attending Unavaila ble Johnny, Zach Primary Care Unavailable Stainbrook Jr., Coco Carter Referring Unavaila ble Stainbrook Jr., Coco Carter Attending Unavaila ble Turner, Zach Primary Care Unavailable Stainbrook Jr., Coco Carter Referring Unavaila ble Stainbrook Jr., Coco Carter Attending Unavaila ble Turner, [facility] Primary Care Unavailable Allergies Allergy Classification Reported Allergen(s) Allergy Type Date of Onset Reaction(s) Facility Cephalosporins (antibiotic) (1 source) Cephalexin Drug Allergy 06-01-[address] [facility] Dihydrofolate Reductase Inhibitors (antibiotic) (1 source) Trimethoprim Drug Allergy 06-01-[address] [facility] Penicillins (antibiotic) (1 source) Penicillins Drug Allergy [facility] Sulfonamides (antibiotic) (1 source) Sulfamethoxazole Drug Allergy 06-01-[address] [facility] (2 sources) penicillin Drug Allergy 03-10-20 11 [facility] Work Phone: (19 sources) Penicillins Propensity to adverse reactions to drug 02-04-20 22 Unknown [facility] Work Phone: (20 sources) Cephalexin Drug Allergy 06-01-20 19 [facility] (20 sources) Sulfamethoxazole Drug Allergy 06-01-20 19 [facility] (20 sources) Trimethoprim Drug Allergy 06-01-20 19 [facility] (20 sources) levoFLOXacin Drug Allergy 07-20-20 21 Other [facility] Comment on above: tendon separation (20 sources) Penicillins Propensity to adverse reactions 02-23-20 22 Unknown, Rash [facility] (1 source) levoFLOXacin Drug Allergy [facility] (1 source) Penicillin Drug Allergy [facility] (1 source) Sulfamethoxazole / Trimethoprim Drug Allergy [facility] (12 sources) Penicillins Propensity to adverse reactions to drug 11-27-19 09 Rash, Unknown [facility] (12 sources) Sulfamethoxazole Propensity to adverse reactions to drug 06-01-[address] [facility] (14 sources) Doxycycline Drug Allergy 06-29-20 24 GI upset [facility] (5 sources) Sulfamethoxazole / Trimethoprim Drug Allergy 07-11-20 [facility] (1 source) cefdinir Drug Allergy 06-21-20 Abd cramps/diarrhe a [facility] (1 source) cefdinir Drug Allergy 06-21-20 [facility] (1 source) Cephalexin Drug Allergy 06-21-20 [facility] (1 source) Doxycycline Drug Allergy 06-21-20 [facility] (1 source) levoFLOXacin Drug Allergy 06-21-20 [facility] (1 source) Penicillins Drug allergy (disorder) 06-21-20 [facility] (1 source) Sulfamethoxazole Drug Allergy 06-21-20 [facility] (1 source) Trimethoprim Drug Allergy 06-21-20 [facility] Repository Medications Current Medications Medication Drug Class(es) Dates Sig (Normalized) Sig (Original) acetaminophen 325 mg oral tablet (20 sources) Start: 04-17-2025 Acetaminophen 325 mg Tablet Active 650 mg PO EVERY 6 HOURS NEEDED as needed for Pain 1-10 Or Fever >100.7 0 0 April 17, 2025 12:00am Start: 02-27-2023 acetaminophen (Tylenol) 325 MG tablet Take 650 mg by mouth. 02/27/2023 Active Start: 02-27-2023 End: 05-28-2024 Acetaminophen 325 mg Tablet Discontinued 650 mg PO EVERY 6 HOURS NEEDED as needed for Pain 1-10 Or Fever >100.7 0 0 February 27, 2023 12:00am May 28, 2024 3:48pm Start: 02-27-2023 take 650 mg by mouth every six hours as needed Acetaminophen Active 650 MG PO EVERY 6 HOURS NEEDED 0 February 27, 2023 12:00am amLODIPine 2.5 mg oral tablet (20 sources) Dihydropyridine Calcium Channel Justino Start: 06-21-2025 take 1 tablet by mouth once daily Amlodipine 2.5 mg tablet Active 2.5 mg PO DAILY June 21, 2025 12:00am Start: 04-17-2025 End: 06-21-2025 take 1 tablet by mouth once daily Amlodipine 10 mg tablet Discontinued 10 mg PO DAILY 90 60 3 May 15, 2025 10:32am June 21, 2025 5:11pm Start: 07-27-2021 End: 04-17-2025 take 1 tablet by mouth once daily Amlodipine 2.5 mg tablet Discontinued 2.5 mg PO DAILY 90 3 April 10, 2024 2:06pm April 17, 2025 1:46pm apixaban 5 mg oral tablet (20 sources) Factor Xa Inhibitor Start: 04-15-2025 take 2.5 mg by mouth twice daily Apixaban (Eliquis) 5 mg tablet Active 2.5 mg PO TWICE A DAY April 15, 2025 12:00am Start: 04-15-2025 take 1 tablet by maicol th twice daily Apixaban (Eliquis) 5 mg tablet Active 5 mg PO TWICE A DAY April 15, 2025 12:00am Start: 07-30-2024 End: 04-15-2025 take 1 tablet by mouth twice daily Apixaban (Eliquis) 2.5 mg tablet Discontinued 2.5 mg PO TWICE A DAY 180 July 30, 2024 2:37pm April 15, 2025 3:21pm Start: 06-20-2024 End: 07-30-2024 take 1 tablet by mouth twice daily Apixaban (Eliquis) 5 mg tablet Discontinued 5 mg PO TWICE A DAY 180 July 17, 2024 10:54am July 30, 2024 2:38pm bimatoprost 0.1 mg/ml ophthalmic solution (20 sources) Prostaglandin Analog Start: 06-21-[address] (Bimatoprost 0.01 % Eye Drops) 0.01 % drops Active 1 NMA OPHTHALMIC DAILY June 21, 2025 12:00am Start: 07-02-2024 Lumigan 0.01 % ophthalmic solution 07/02/2024 Active Start: 06-30-2018 End: 06-20-2024 Bimatoprost 1 DROP drops Discontinued 1 NMA EACH EYE DAILY June 30, 2018 12:00am June 20, 2024 1:46pm glaucoma On Hold: per dr order Start: 10-03-2017 take 1 drop(s) into the eye(s) once daily LUMIGAN 0.01 % SOLN One drop in each eye daily BIMATOPROST [id number] Merrill Coppola MIYA Start: 07-31-2015 End: 10-08-2019 bimatoprost (LUMIGAN) 0.01 % Solution LUMIGAN 0.01 % SOLN 0 10/03/2017 Active End: 07-04-2023 take 1 drop(s) into the eye(s) at bedtime bimatoprost 0.01 % Solution Apply 1 drop to eye at bedtime. 0 07/04/2023 Discontinued carvedilol 25 mg oral tablet (3 sources) alpha-Adrenergic Justino, beta-Adrenergic Justino Start: 06-21-2025 take 1 tablet by mouth twice daily Carvedilol 25 mg tablet Active 25 mg PO TWICE A DAY June 21, 2025 12:00am Start: 04-25-2025 carvedilol (Co reg) 25 MG tablet 25 mg. 04/25/2025 Active cholecalciferol 0.025 mg oral tablet (20 sources) Vitamin D Start: 06-20-2024 take 1 tablet by mouth twice daily Cholecalciferol (Vitamin D3) 25 mcg (1,000 unit) tablet Active 25 ug PO TWICE A DAY June 20, 2024 1:41pm Start: 02-03-2022 End: 06-20-2024 take 1 tablet by mouth once daily Cholecalciferol (Vitamin D3) 25 mcg (1,000 unit) tablet Active 25 ug PO DAILY June 20, 2024 1:41pm supplement Start: 02-03-2022 take 25 ug by mouth twice daily Cholecalciferol (Vitamin D3) Active 25 MCG PO TWICE A DAY February 03, 2022 12:00am empagliflozin 10 mg oral tablet (2 sources) Sodium-Glucose Cotransporter 2 Inhibitor Start: 06-21-2025 take 1 tablet by mouth once daily Empagliflozin (Empagliflozin 10 Mg Tablet) 10 mg tablet Active 10 mg PO DAILY June 21, 2025 12:00am Start: 05-30-2025 take 1 tablet by maicol th once daily Empagliflozin (Jardiance) 10 MG tablet Take 1 tablet by mouth daily. 90 tablet 3 05/30/2025 Active finasteride 5 mg oral tablet (20 sources) 5-alpha Reductase Inhibitor Start: 11-24-2012 End: 10-08-2019 take 1 tablet by mouth once daily Finasteride 5 MG tablet Active 5 mg PO DAILY February 03, 2016 12:00am prostate fluocinolone acetonide 0.1 mg/ml topical oil (9 sources) Corticosteroid Start: 06-21-2025 Fluocinolone 0.01 % oil Active 1 NMA TOPICAL TWICE A DAY June 21, 2025 12:00am Start: 06-12-2025 fluocinolone ( Carmichael-Smoothe) 0.01 % external oil Apply to itchy areas of skin at bedtime while skin is damp 120 mL 5 06/12/2025 Active Start: 07-20-2018 End: 10-08-2019 Fluocinolone Acetonide Scalp 0.01 % Oil fluorouracil 50 mg/ml topical cream (5 sources) Nucleoside Metabolic Inhibitor Start: 07-11-2024 fluorouracil (Efudex ) 5 % cream Indications: Actinic keratoses Apply a thin layer to affected areas bid x 6 weeks 120 g 3 07/11/2024 Active fluticasone propionate 0.05 mg/actuat metered dose nasal spray (20 sources) Corticosteroid Start: 10-03-2017 End: 05-07-2024 fluticasone 50 MCG/ACT Suspension nasal spray 10/03/2017 05/07/2024 Discontinued Start: 10-03-2017 FLUTICASONE MD OPIONATE 50 MCG/ACT SUSP (0.05mg/inh) 1 spray each nostril once a day FLUTICASONE PROPIONATE [id number] Merrill Coppola NP Start: 02-03-2016 End: 06-30-2018 Fluticasone Propionate 1 SPR AY spray,suspension Active 2 NMA NASAL DAILY as needed for Nasal Congestion June 30, 2018 12:00am Start: 02-03-2016 End: 06-30-2018 Fluticasone Propionate Activ e 2 SPRAY NASAL DAILY June 29, 2018 11:00pm Ginkgo Biloba Verdel Extract (9 sources) Start: 06-20-2024 take 1 capsule by mouth once daily Ginkgo Biloba Verdel Extract 60 mg capsule Active 60 mg PO DAILY June 20, 2024 12:00am give with meal/snack glucosamine hydrochloride 1500 mg oral tablet (20 sources) Start: 02-20-2020 take 1 tablet by mouth twice daily Glucosamine Hcl 1,500 mg tablet Active 1500 mg PO TWICE A DAY February 20, 2020 12:00am supplemt administer with a meal Rzqeyzanjda-Kdttrdumt-Anw C-Mn (GLUCOSAMINE 1500 COMPLEX PO) (6 sources) Glucosamine-Juan Pablo droit- Vit C-Mn (GLUCOSAMINE 1500 COMPLEX PO) Take 1,500 mg by mouth 2 times daily. Active Glucosamine-Juan Pablo droit-Vit C-Mn (GLUCOSAMINE 1500 COMPLEX PO) Take 1,500 mg by mouth 2 times daily. 0 Active hydrocortisone 25 mg/ml topical cream (5 sources) Corticosteroid Start: 05-08-2024 hydrocortisone 2.5 % cream 05/08/2024 Active inFLIXimab-dyyb 100 mg injection (20 sources) Tumor Necrosis Factor Justino Start: 05-19-2022 End: 01-25-2025 inFLIXimab-dyyb (Inflectra) 100 MG injection 8 mg / kg IV infusion over 2 hours every 6 weeks. Premedicated with Benadryl 12.5 mg IV 05/07/2024 Active Start: 08-19-2021 End: 05-19-2022 inFLIXimab-dyyb (Inflectra) 100 MG Recon Soln Indications: Psoriatic arthritis mutilans , Psoriatic arthritis , Psoriasis , Seborrheic eczema , Eczema, unspecified type , Asteatosis cutis , Other intermodal dispatcher (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 , 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, intermodal dispatcher, current use , Long-term current use of high risk medication other than anticoagulant , Encounter for long-term (current) use of non-steroidal anti-inflammatories , Primary osteoarthritis of both knees , Cervical disc disorder, unspecified, unspecified cervical region , Cervical disc disorder , Pustulosis palmaris et plantaris , [facility] 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 , Osteoarthritis of both knees, unspecified osteoarthritis type 8 mg / kg IV infusion over 2 hours every 8 weeks. Premedicated with Benadryl 12.5 mg IV 1 Each 08/19/2021 05/19/2022 Discontinued Start: 05-30-2020 Infliximab-Dyy b (Inflectra) 100 mg recon soln Active 100 mg IV DIRECTED 0 May 30, 2020 8:36am psoriatic arthritis 8 MG/KG, [id number] Start: 05-30-2020 Infliximab-Dyy b (Inflectra) 100 mg recon soln Active 100 mg IV DIRECTED May 30, 2020 8:36am 8 MG/KG, [id number] Start: 09-22-2018 End: 05-30-2020 take 1 mg intravenously every two months Infliximab-Dyyb (Inflectra) 100 mg recon soln Discontinued mg IV every 2 months 0 September 22, 2018 1:00am May 30, 2020 8:38am 6 MG/KG Start: 05-22-2018 End: 05-14-2020 inFLIXimab-dyyb (Inflectra) 100 MG Recon Soln Indications: [facility] 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 , Psoriatic arthritis , Other intermodal dispatcher (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 , Long-term current use of high risk medication other than anticoagulant , Encounter for long-term (current) use of non-steroidal anti-inflammatories , 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, intermodal dispatcher, current use , Osteoarthritis of both knees, unspecified osteoarthritis type , Cervical disc disorder, unspecified, unspecified cervical region , Psoriatic arthritis mutilans , Pustulosis palmaris et plantaris , Psoriasis , Asteatosis cutis , Seborrheic eczema , Eczema, unspecified type , Cervical disc disorder , Primary osteoarthritis of both knees 8 mg / kg IV infusion over 2 hours every 8 weeks. Premedicated with Benadryl 12.5 mg IV 1 Each 05/14/2020 Active ipratropium bromide 0.042 mg/actuat metered dose nasal spray (5 sources) Anticholinergic Start: 11-23-2023 take 2 spray(s) nasal route three times daily as needed ipratropium (Atrovent) 0.06 % nasal spray USE 2 SPRAYS IN THE AFFECTED NOSTRIL THREE TIMES DAILY, NEEDED 11/23/2023 Active Kp Vision Formula Po Tabs (1 source) Start: 10-03-2017 Multiple Vitamins-Minerals (KP VISION FORMULA) Tab KP VISION FORMULA TABS 10/03/2017 Active L.Acidoph,Saliva-B. Bif-S.Therm 175 mg Capsule (6 sources) Start: 04-17-2025 take 1 capsule by mouth twice daily L.Acidoph,Saliva-B .Bif-S.Therm 175 mg Capsule Active 1 NMA PO TWICE A DAY 112 56 0 April 17, 2025 12:00am Start: 04-17-2025 take 1 capsule by mouth twice daily L.Acidoph,Saliva-B.Bif-S.Therm 175 mg Ca psule Active 1 NMA PO TWICE A DAY 112 56 April 17, 2025 12:00am lactobacillus acidophilus 16 mg oral capsule (1 source) Start: 04-17-2025 take 1 capsule by mouth twice daily Lactobacillus (Acidophilus) capsule TAKE 1 CAPSULE BY MOUTH TWICE A DAY FOR 8 WEEKS 04/17/2025 Active linezolid 600 mg oral tablet (20 sources) Oxazolidinone Antibacterial Start: 02-27-2024 take 1 tablet by mouth twice daily linezolid (Zyvox) 600 MG tablet Take 600 mg by mouth 2 times daily. 02/27/2024 Active Start: 02-27-2023 End: 07-08-2023 take 1 tablet by mouth twice daily Linezolid (Zyvox) 600 mg tablet Discontinued 600 mg PO TWICE A DAY 14 February 27, 2023 12:00am July 08, 2023 10:20am start today loteprednol etabonate 0.005 mg/mg ophthalmic ointment (5 sources) Start: 12-29-2023 Lotemax 0.5 % ointment 12/29/2023 Active methotrexate 2.5 mg oral tablet (20 sources) Folate Analog Metabolic Inhibitor Start: 05-29-2025 take 2 tablets by mouth every week methotrexate 2.5 MG tablet Indications: Psoriatic arthritis mutilans , Psoriatic arthritis , Primary osteoarthritis of both knees , Cervical disc disorder, unspecified, unspecified cervical region , Cervical disc disorder , Pustulosis palmaris et plantaris , Psoriasis , Seborrheic eczema , Photoaged skin , Other skin changes due to chronic exposure to nonionizing radiation , Eczema, unspecified type , Asteatosis cutis , Actinic keratosis , Personal history of other malignant neoplasm of skin , Other intermodal dispatcher (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 , On statin therapy , Nocturia , 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, care home, current use , Long-term current use of high risk medication other than anticoagulant , History of osteomyelitis , History of malignant neoplasm of skin , Encounter for long-term (current) use of non-steroidal anti-inflammatories TAKE 2 TABLETS BY MOUTH 1 DAY WEEKLY 24 tablet 3 05/29/2025 Active Start: 10-26-2023 take 3 tablets by mouth once m ethotrexate 2.5 MG tablet 3 po one day a week 10/26/2023 Active Start: 08-12-2020 take 3 tablets by mo uth once daily methotrexate 2.5 MG tablet TAKE 3 TABLETS BY MOUTH ONE DAY A WEEK 39 tablet 5 08/12/2020 Active Start: 06-30-2018 End: 10-26-2023 take 3 tablets by mouth every week 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 Sodium 2.5 MG tablet Active 7.5 mg PO Q7D June 30, 2018 12:00am arthritis Start: 05-22-2018 End: 06-21-2019 take 3 tablets by mouth once daily methotrexate 2.5 MG tablet TAKE 3 TABLETS BY MOUTH ONE DAY A WEEK 39 tablet 5 06/21/2019 Active Start: 04-07-2018 End: 06-30-2018 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 Sodium 2.5 MG t ablet Discontinued 3 {tbl} EVERY WEEK April 07, 2018 12:00am June 30, 2018 4:08pm Start: 04-07-2018 End: 06-30-2018 take 7.5 mg by mouth every week 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 Sodium Ac tive 7.5 MG PO Q7D June 29, 2018 11:00pm Start: 11-29-2016 End: 06-21-2019 methotrexate 2.5 MG tablet METHOTREXATE 2.5 MG TABS 0 11/29/2016 06/21/2019 Discontinued Start: 11-29-2016 METHOTREXATE 2 .5 MG TABS two times a week METHOTREXATE SODIUM [id number] Maddison Elvia Quiles Start: 11-29-2016 METHOTREXATE 2 .5 MG TABS three times a week METHOTREXATE SODIUM [id number] Winnie Aguirre PA-C Multiple Vitamin (MULTIVITAM IN PO) (19 sources) Multiple Vitamin (MULTIVITAMIN PO) take 1 tablet by mouth daily.. 0 Active Multiple Vitamin (MULTIVITAMIN PO) take 1 tablet by mouth daily.. Active Multivitamin (Daily Multi-Vitamin) tablet (7 sources) Start: 04-15-2025 Multivitamin ( Daily Multi-Vitamin) tablet Active 1 {tbl} PO DAILY April 15, 2025 12:00am Multivitamin With Folic Acid (20 sources) Start: 10-20-2018 take 1 tablet by mouth once daily Multivitamin With Folic Acid Active 1 TABLET PO DAILY October 20, 2018 12:21pm Start: 10-20-2018 take 1 tablet by maicol th once daily Multivitamin With Folic Acid Active 1 TABLET PO DAILY October 20, 2018 12:00am Start: 10-20-2018 take 1 tablet by maicol th once daily Multivitamin With Folic Acid Active 1 TABLET PO DAILY October 20, 2018 1:00am Multivitamins Po Caps (1 source) Start: 08-12-2015 Multiple Vitamin (MULTIVITAMIN) Cap MULTIVITAMINS CAPS 08/12/2015 Active 24 hr oxybutynin chloride 5 mg extended release oral tablet (20 sources) Cholinergic Muscarinic Antagonist Start: 10-20-2018 End: 10-08-2019 take 1 tablet by mouth at bedtime Oxybutynin Chloride 5 MG tablet Active 5 mg PO AT BEDTIME October 20, 2018 1:00am bladder Start: 11-29-2016 oxybutynin 5 M G Tab OXYBUTYNIN CHLORIDE 5 MG TABS 11/29/2016 Active predniSONE 5 mg oral tablet (17 sources) Start: 09-28-2021 End: 05-30-2025 take 8 tablets by mouth once in the morning as needed, then take 1 tablet by mouth once daily as needed predniSONE (Deltasone) 5 MG tablet 8 po q AM for 1 day decrease by 1 pill a day until off - to be used on a PRN basis 10/26/2023 Active pyridoxine (13 sources) Start: 06-30-2018 Pyridoxine (Vi tamin B6) 50 MG tablet Active 100 mg PO AT BEDTIME June 30, 2018 12:00am supplement Start: 06-30-2018 Pyridoxine (Vi tamin B6) 50 MG tablet Active 100 mg PO AT BEDTIME June 30, 2018 12:00am Start: 06-30-2018 take 100 mg by mouth at bedtim e Pyridoxine (Vitamin B6) Active 100 MG PO AT BEDTIME June 30, 2018 12:00am Start: 06-30-2018 take 100 mg by mouth at bedtim e Pyridoxine (Vitamin B6) Active 100 MG PO AT BEDTIME June 29, 2018 11:00pm silver sulfADIAZINE 10 mg/ml topical cream (1 source) Sulfonamide Antibacterial Start: 12-22-2020 silver sulfADIAZINE 1 % Cream cream As directed. 0 12/22/2020 Active tamsulosin hydrochloride 0.4 mg oral capsule (20 sources) alpha-Adrenergic Justino Start: 07-10-2024 tamsulosin (Flomax) 0.4 MG 24 hr capsule 07/10/2024 Active Start: 11-24-2012 End: 10-08-2019 take 1 capsule by mouth at bedtime Tamsulosin 0.4 MG capsule Active 0.4 mg PO AT BEDTIME February 03, 2016 12:00am prostate Start: 11-24-2012 take 1 tablet by once daily FLOMAX 0.4 MG CAPS One tablet by mouth daily TAMSULOSIN HCL [id number] Miguelangel Walton MD traMADol hydrochloride 50 mg oral tablet (3 sources) Opioid Agonist Start: 01-25-2025 take 2 tablets by mouth four times daily as needed traMADol 50 MG tablet Indications: Psoriatic arthritis , Primary osteoarthritis of both knees , Cervical disc disorder, unspecified, unspecified cervical region , Cervical disc disorder , Macrocytic anemia , Hyperchromic anemia , Vesicular palmoplantar eczema , Senile lentigo , Seborrheic keratosis , Seborrheic eczema , Pustulosis palmaris et plantaris , Psoriasis , Photoaged skin , Other skin changes due to chronic exposure to nonionizing radiation , Eczema, unspecified type , Asteatosis cutis , Actinic keratosis , Other proteinuria , Other care home (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 , On statin therapy , 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, care home, current use , Nocturia , Long-term current use of high risk medication other than anticoagulant , [facility] use of drug , Infliximab (Remicade) long-term use , History of osteomyelitis , History of malignant neoplasm of skin , Difficulty in urination , Current use of care home anticoagulation , Abnormal renal function test , Psoriatic arthritis mutilans 2 po qid PRN 720 tablet 01/25/2025 Active triamcinolone acetonide 0.001 mg/mg topical ointment (14 sources) Corticosteroid Start: 10-31-2024 triamcinolone (Kenalog) 0.1 % ointment Indications: Stasis dermatitis Apply to affected areas BID x 2 weeks Stop using when clear. Repeat as needed for flares. Do not use on face, armpits, groin. 454.6 g 1 10/31/2024 Active Start: 05-08-2024 triamcinolone (Kenalog) 0.1 % cream 05/08/2024 Active Start: 07-20-2018 End: 10-08-2019 triamcinolone 0.1 % Ointment ointment Vit C,B-Vl-Dvioi-Lutein-Zeax an (20 sources) Start: 02-20-2020 take 1 capsule by mouth once daily Vit C,S-Xi-Qtkdw-Lutein-Zeaxan Active 1 CAP PO DAILY February 20, 2020 10:34am Start: 02-20-2020 take 1 capsule by mo [facility] once daily Vit C,E-Km-Zfuks-Lutein-Zeaxan Active 1 CAP PO DAILY February 20, 2020 11:34am Start: 02-03-2016 End: 02-20-2020 Vit C,C-Xv-Cdqmo-Lutein-Zeax an Discontinued 1 EACH PO DAILY February 03, 2016 11:49am February 20, 2020 11:35am Start: 02-03-2016 End: 02-20-2020 Vit C,U-Nl-Ryooe-Lutein-Zeax an Discontinued 1 EACH PO DAILY February 02, 2016 11:00pm February 20, 2020 10:35am Start: 02-03-2016 End: 02-20-2020 Vit C,W-Jx-Snkje-Lutein-Zeax an Discontinued 1 EACH PO DAILY February 03, 2016 12:00am February 20, 2020 11:35am vitamin b12 0.1 mg oral tablet (20 sources) Vitamin B12 Start: 12-01-2020 take 5 tablets by mouth once daily Cyanocobalamin (Vitamin B-12) 100 mcg tablet Active 500 ug PO DAILY December 01, 2020 12:07pm supplement Start: 12-01-2020 take 500 ug by mouth once daily Cyanocobalamin (Vitamin B-12) Active 500 MCG PO DAILY December 01, 2020 12:07pm Start: 02-20-2020 End: 12-01-2020 take 1 tablet by mouth once daily Cyanocobalamin (Vitamin B-12) 100 mcg tablet Discontinued 100 ug PO DAILY February 20, 2020 12:00am December 01, 2020 12:10pm Start: 08-12-2015 End: 11-12-2015 take 1 tablet by mouth once daily VITAMIN B-12 1000 MCG TABS One tablet by mouth daily CYANOCOBALAMIN [id number] Mariah Valdes vitamin b6 50 mg oral tablet (20 sources) Start: 06-30-2018 take 100 mg by mouth at bedtime Pyridoxine (Vitamin B6) Active 100 MG PO AT BEDTIME June 29, 2018 11:00pm Start: 08-12-2015 Pyridoxine HCl (B-6) 100 MG Tab B-6 100 MG TABS 08/12/2015 Active Start: 08-12-2015 End: 10-08-2019 Pyridoxine HCl (B-6) 100 MG Tab B-6 100 MG TABS 0 08/12/2015 10/08/2019 Discontinued (Medication Reconciliation (suppress cancel msg)) Start: 08-12-2015 take 1 tablet by maicol once daily B-6 100 MG TABS One tablet by mouth daily PYRIDOXINE HCL [id number] Mariah Valdes Vitamins A,C,Z-Pcat-Bjzqlb (Preservision Areds) 4,296 mcg-226 mg-90 mg capsule (8 sources) Start: 03-08-2025 Vitamins A,C,E -Zinc-Copper (Preservision Areds) 4,296 mcg-226 mg-90 mg capsule Active 1 NMA PO daily March 08, 2025 12:00am Completed/Discontinued Medications Medication Drug Class(es) Dates Sig [...] ON DAYS 2-5 0 09/22/2018 01/22/2019 Discontinued cefdinir 300 mg oral capsule (7 sources) Cephalosporin Antibacterial Start: 04-17-2025 End: 06-21-2025 take 1 capsule by mouth twice daily Cefdinir 300 mg capsule Discontinued 300 mg PO TWICE A DAY 80 0 April 17, 2025 12:00am June 21, 2025 5:12pm ciprofloxacin 3 mg/ml / dexamethasone 1 mg/ml [...] by mouth four times daily CLINDAMYCIN HCL [id number] Mariah Valdes clobetasol propionate 0.5 mg/ml topical solution (14 sources) Corticosteroid Start: 07-24-2018 End: 10-26-2023 clobetasol 0.05 % Solution doxycycline hyclate 100 mg oral capsule (20 sources) Tetracycline-class Drug Start: 04-15-2025 End: 04-17-2025 take 1 capsule by mouth every twelve hours Doxycycline Hyclate 100 mg capsule Discontinued 100 mg PO Q12H April 15, 2025 12:00am April 17, 2025 1:36pm Start: 09-30-2024 End: 12-25-2024 take 1 capsule by mouth twice daily Doxycycline Hyclate 100 mg capsule Discontinued 100 mg PO TWICE A DAY 14 7 0 September 30, 2024 1:00am December 25, 2024 11:12am Start: 02-22-2022 take 100 mg by mouth twice daily Doxycycline Hyclate Active 100 MG PO TWICE A DAY February 22, 2022 12:00am Start: 05-05-2021 End: 02-03-2022 take 1 capsule by mouth twice daily Doxycycline Hyclate 100 mg Capsule Discontinued 100 mg PO TWICE A DAY May 05, 2021 12:00am February 03, 2022 11:28am take for 6 weeks escitalopram 10 mg oral tablet (4 sources) Serotonin Reuptake Inhibitor Start: 05-30-2015 End: 08-12-2015 take 1 tablet by mouth once daily ESCITALOPRAM OXALATE 10 MG TABS One tablet by mouth daily ESCITALOPRAM OXALATE [id number] Miguelangel Walton MD ezetimibe 10 mg oral tablet (20 sources) Dietary Cholesterol Absorption Inhibitor Start: 09-22-2018 End: 10-08-2019 take 1 tablet by mouth once daily Ezetimibe (Zetia) 10 mg tablet Discontinued 10 mg PO DAILY September 22, 2018 1:00am September 22, 2018 11:47am Start: 03-10-2011 End: 11-29-2016 take 1 tablet by mouth once daily ZETIA 10 MG TABS One tablet by mouth daily EZETIMIBE [id number] Miguelangel Walton MD fexofenadine hydrochloride 180 mg oral tablet (20 sources) Histamine-1 Receptor Antagonist Start: 11-29-2016 End: 07-08-2023 take 1 tablet by mouth once daily as needed Fexofenadine 180 mg tablet Discontinued 180 mg PO DAILY as needed for allergies February 03, 2022 11:29am July 08, 2023 10:21am Start: 03-10-2011 End: 08-12-2015 take 1 tablet by mouth once daily as needed FEXOFENADINE HCL 180 MG TABS One tablet by mouth daily as needed FEXOFENADINE HCL [id number] Mariah Valdes Finerenone (Kerendia) 10 MG tablet (3 sources) Start: 02-28-2025 End: 05-30-2025 take 1 tablet by mouth once daily Finerenone (Kerendia) 10 MG tablet Take 1 tablet by mouth daily. 30 tablet 1 02/28/2025 05/30/2025 Discontinued Start: 02-28-2025 take 1 tablet by maicol th once daily Finerenone (Kerendia) 10 MG tablet Take 1 tablet by mouth daily. 30 tablet 1 02/28/2025 Active Fluocinolone Acetonide Scalp 0.01% (20 sources) Start: 06-01-2019 End: 02-20-2020 Fluocinolone Acetonide Scalp 0.01% Discontinued 1 - 3 ML TOPICAL June 01, 2019 2:11pm February 20, 2020 10:35am apply 1-3ml to scalp at bedtime twice a week as directed for 90 days, beginning 07/20/2018 Start: 06-01-2019 End: 02-20-2020 Fluocinolone Acetonide Scalp 0.01% Discontinued 1 - 3 ML TOPICAL June 01, 2019 3:11pm February 20, 2020 11:35am apply 1-3ml to scalp at bedtime twice a week as directed for 90 days, beginning 07/20/2018 Start: 10-20-2018 End: 06-01-2019 Fluocinolone Acetonide Scalp 0.01% Discontinued 1 - 3 ML TOPICAL October 20, 2018 12:21pm June 01, 2019 3:14pm apply 1-3ml to scalp at bedtime twice a week as directed for 90 days, beginning 07/20/2018 Start: 10-20-2018 End: 06-01-2019 Fluocinolone Acetonide Scalp 0.01% Discontinued 1 - 3 ML TOPICAL October 20, 2018 12:00am June 01, 2019 2:14pm apply 1-3ml to scalp at bedtime twice a week as directed for 90 days, beginning 07/20/2018 Start: 10-20-2018 End: 06-01-2019 Fluocinolone Acetonide Scalp 0.01% Discontinued 1 - 3 ML TOPICAL October 20, 2018 1:00am June 01, 2019 3:14pm apply 1-3ml to scalp at bedtime twice a week as directed for 90 days, beginning 07/20/2018 Fluocinolone Acetonide Scalp 0.01% oil (18 sources) Start: 06-01-2019 End: 02-20-2020 Fluocinolone Acetonide Scalp 0.01% oil Discontinued 1 - 3 mL TOPICAL as needed for Dry Skin June 01, 2019 3:11pm February 20, 2020 11:35am apply 1-3ml to scalp at bedtime twice a week as directed for 90 days, beginning 07/20/2018 Start: 10-20-2018 End: 06-01-2019 Fluocinolone Acetonide Scalp 0.01% oil Discontinued 1 - 3 mL TOPICAL October 20, 2018 1:00am June 01, 2019 3:14pm apply 1-3ml to scalp at bedtime twice a week as directed for 90 days, beginning 07/20/2018 folic acid 1 mg oral tablet (20 sources) Start: 06-30-2018 End: 06-01-2019 take 4 mg by mouth once daily Folic Acid Active 4 MG PO DAILY June 01, 2019 2:11pm Start: 03-21-2018 End: 06-01-2019 take 4 tablets by mouth once daily Folic Acid 1 MG tablet Discontinued 4 mg PO DAILY June 30, 2018 12:00am June 01, 2019 3:14pm Start: 11-29-2016 End: 09-22-2020 folic acid 1 MG Tab tablet F OLIC ACID 1 MG TABS 0 11/29/2016 09/22/2020 Discontinued fosinopril sodium 40 mg oral tablet (8 sources) Angiotensin Converting Enzyme Inhibitor Start: 08-11-2015 take 1 tablet by mouth once daily FOSINOPRIL SODIUM 40 MG TABS One tablet by mouth daily FOSINOPRIL SODIUM [id number] Mariah Valdes Start: 03-10-2011 End: 07-31-2015 take 1 tablet by mouth once daily FOSINOPRIL SODIUM 40 MG TABS One tablet by mouth daily FOSINOPRIL SODIUM [id number] Mariah Valdes furosemide 20 mg oral tablet (20 sources) Loop Diuretic Start: 10-29-2024 End: 06-21-2025 take 1 tablet by mouth once daily as needed for edema Furosemide (Lasix) 20 mg tablet Discontinued 20 mg PO DAILY as needed for edema March 08, 2025 11:25am June 21, 2025 5:13pm Start: 09-22-2018 End: 01-22-2019 take 1 tablet by mouth once daily furOSEmide 40 MG Tab tablet Take 40 mg by mouth daily. 6 09/22/2018 01/22/2019 Discontinued glipiZIDE 10 mg oral tablet (20 sources) Sulfonylurea Start: 04-21-2020 End: 06-20-2024 take 1 tablet by mouth once daily as needed Glipizide 10 mg tablet Discontinued 10 mg PO DAILY as needed for dm May 30, 2020 12:00am June 20, 2024 1:46pm hydrALAZINE hydrochloride 25 mg oral tablet (7 sources) Arteriolar Vasodilator Start: 04-17-2025 End: 06-21-2025 take 1 tablet by mouth twice daily Hydralazine 25 mg Tablet Discontinued 25 mg PO TWICE A DAY 120 60 0 April 17, 2025 12:00am June 21, 2025 5:14pm hydroCHLOROthiazide 12.5 mg oral capsule (20 sources) Thiazide Diuretic Start: 03-08-2025 End: 04-17-2025 take 1 capsule by mouth once daily Hydrochlorothiazide 12.5 mg capsule Discontinued 12.5 mg PO daily March 08, 2025 12:00am April 17, 2025 1:44pm Start: 05-08-2024 hydroCHLOROthi azide 12.5 MG tablet 05/08/2024 Active Start: 03-10-2011 End: 01-25-2025 take 1 tablet by mouth once daily Hydrochlorothiazide 25 mg tablet Discontinued 25 mg PO DAILY 90 3 February 24, 2023 8:12am January 09, 2025 11:02am hydroCHLOROthiazide 25 mg / spironolactone 25 mg oral tablet (10 sources) Thiazide Diuretic, Aldosterone Antagonist Start: 10-30-2024 End: 04-15-2025 take 1 tablet by mouth once daily Spironolacton-Hydrochlorothiaz 25-25 mg tablet Discontinued 1 {tbl} PO DAILY April 15, 2025 12:00am April 15, 2025 3:58pm lactulose 667 mg/ml oral solution (7 sources) Osmotic Laxative Start: 04-15-2025 End: 06-21-2025 take 1 mL by mouth at bedtime Lactulose (Enulose) 10 gram/15 mL solution Discontinued 15 mL PO AT BEDTIME April 15, 2025 12:00am June 21, 2025 5:15pm levoFLOXacin 500 mg oral tablet (20 sources) Quinolone Antimicrobial Start: 04-24-2020 End: 05-30-2020 take 1 tablet by mouth once daily Levofloxacin 500 MG tablet Discontinued 500 mg PO DAILY April 24, 2020 12:00am May 30, 2020 8:37am Start: 05-09-2017 End: 10-03-2017 take 1 tablet by mouth once daily LEVAQUIN 500 MG TABS One tablet by mouth daily times 10 days LEVOFLOXACIN [id number] Maddison Quiles Start: 01-16-2016 End: 05-31-2016 take 1 tablet by mouth once daily LEVAQUIN 500 MG TABS One tablet by mouth daily LEVOFLOXACIN [id number] Miguelangel Walton MD Start: 08-25-2015 End: 09-15-2015 take 1 tablet by mouth once LEVAQUIN 500 MG TABS one p o q 24 LEVOFLOXACIN [id number] Alyx Blue MD Start: 08-11-2015 End: 08-25-2015 take 1 tablet by mouth once daily LEVAQUIN 750 MG TABS One tablet by mouth daily LEVOFLOXACIN [id number] Mariah Valdes lisinopril 40 mg oral tablet (20 sources) Angiotensin Converting Enzyme Inhibitor Start: 07-31-2015 End: 04-17-2025 take 1 tablet by mouth once daily Lisinopril 40 mg tablet Discontinued 40 mg PO DAILY 90 February 13, 2025 11:13am April 17, 2025 1:44pm lovastatin 40 mg oral tablet (10 sources) HMG-CoA Reductase Inhibitor Start: 08-12-2015 take 1 tablet by mouth once daily LOVASTATIN 40 MG TABS One tablet by mouth daily LOVASTATIN [id number] Mariah Valdes Start: 03-10-2011 End: 01-17-2012 take 1 tablet by mouth once daily LOVASTATIN 10 MG TABS One tablet by mouth daily M-F (STOP) LOVASTATIN [id number] Saima Gonzalez Start: 03-10-2011 End: 01-17-2012 take 1 tablet by mouth once daily LOVASTATIN 40 MG TABS One tablet by mouth daily LOVASTATIN [id number] Mariah Valdes magnesium citrate 58.2 mg/ml oral solution (20 sources) Start: 07-20-2021 End: 02-03-2022 take 1 mL by mouth once daily as needed for constipation Magnesium Citrate solution Discontinued 300 mL PO DAILY as needed for constipation 600 0 July 20, 2021 12:00am February 03, 2022 11:29am Start: 07-20-2021 End: 02-03-2022 take 1 mL by mouth once daily Magnesium Citrate Discon tinued 300 ML PO DAILY 600 July 20, 2021 12:00am February 03, 2022 11:29am metFORMIN hydrochloride 1000 mg oral tablet (20 sources) Biguanide Start: 01-14-2014 End: 04-15-2025 take 1 tablet by mouth twice daily at mealtime Metformin 1,000 MG tablet Discontinued 1000 mg PO TWICE DAILY WITH MEALS February 03, 2016 12:00am April 15, 2025 3:57pm dm Start: 01-14-2014 End: 10-08-2019 take 1 tablet by mouth twice daily METFORMIN HCL 850 MG TABS One tablet by mouth twice daily METFORMIN HCL [id number] Miguelangel Walton MD Start: 11-24-2012 take 1 tablet by maicol th twice daily METFORMIN HCL ER 750 MG [id number] One tablet by mouth twice daily METFORMIN HCL [id number] Miguelangel Walton MD Start: 03-10-2011 take 1 tablet by maicol th twice daily METFORMIN HCL 500 MG TABS One tablet by mouth twice daily METFORMIN HCL [id number] Saima Gonzalez take 1 tablet by maicol th every twenty-four hours metFORMIN XR (Glucophage-XR) 750 MG 24 hr tablet Take 1,000 mg by mouth. Active 24 hr metoprolol succinate 100 mg extended release oral tablet (20 sources) beta-Adrenergic Justino Start: 05-08-2024 metopr olol succinate XL (Toprol-XL) 100 MG 24 hr tablet 05/08/2024 Active Start: 10-21-2011 End: 10-08-2019 metoprolol succinate 100 MG tablet XL TOPROL XL 100 MG [id number] 10/21/2011 Active Start: 03-10-2011 End: 06-21-2025 take 1 tablet by mouth twice daily Metoprolol Succinate 100 mg tablet extended release 24 hr Discontinued 100 mg PO TWICE A DAY 180 3 May 15, 2025 10:30am June 21, 2025 5:15pm bp/heart End: 10-08-2019 take 1 tablet by mouth at mealtime metoprolol 100 MG tab regular release take 100 mg by mouth 2 times daily.. With meals 0 10/08/2019 Discontinued (Medication Reconciliation (suppress cancel msg)) metroNIDAZOLE 500 mg oral tablet (4 sources) Nitroimidazole Antimicrobial Start: 08-11-2015 End: 08-25-2015 take 1 tablet by mouth three times daily FLAGYL 500 MG TABS One tablet by mouth three times daily METRONIDAZOLE [id number] Mariah E Carmenlar MULTIPLE VITAMIN (2 sources) Start: 08-12-2015 take 1 tablet by mouth once daily MULTIVITAMINS CAPS One tablet by mouth daily MULTIPLE VITAMIN [id number] Mariah E Tullar Multiple Vitamin (MULTIVITAMIN) Cap (6 sources) Start: 08-12-2015 End: 10-08-2019 Multiple Vitamin (MULTIVITAMIN) Cap MULTIVITAMINS CAPS 0 08/12/2015 10/08/2019 Discontinued (Medication Reconciliation (suppress cancel msg)) Start: 08-12-2015 Multiple Vitam in (MULTIVITAMIN) Cap MULTIVITAMINS CAPS 0 08/12/2015 Active MULTIPLE VITAMINS-MINERALS (2 sources) Start: 10-03-2017 take 1 tablet by mouth once daily KP VISION FORMULA TABS One tablet by mouth daily MULTIPLE VITAMINS-MINERALS [id number] 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 Multiple Vitamins-Minerals (KP VISION FORMULA) Tab (6 sources) Start: 10-03-2017 End: 10-08-2019 Multiple Vitamins-Minerals (KP VISION FORMULA) Tab KP VISION FORMULA TABS 0 10/03/2017 10/08/2019 Discontinued (Medication Reconciliation (suppress cancel msg)) Start: 10-03-2017 Multiple Vitam ins-Minerals (KP VISION FORMULA) Tab KP VISION FORMULA TABS 0 10/03/2017 Active Multivitamin 1 EACH tablet (9 sources) Start: 02-03-2016 End: 06-30-2018 Multivitamin 1 EACH tablet Discontinued 1 NMA PO DAILY February 03, 2016 12:00am June 30, 2018 4:08pm Multivitamin preparation (20 sources) Start: 02-03-2016 End: 06-30-2018 Multivitamin Discontinued 1 EACH PO DAILY February 03, 2016 11:49am June 30, 2018 4:08pm Start: 02-03-2016 End: 06-30-2018 Multivitamin Discontinued 1 EACH PO DAILY February 02, 2016 11:00pm June 30, 2018 3:08pm Start: 02-03-2016 End: 06-30-2018 Multivitamin Discontinued 1 EACH PO DAILY February 03, 2016 12:00am June 30, 2018 4:08pm Multivitamin With Folic Acid 1 TABLET tablet (9 sources) Start: 10-20-2018 End: 06-21-2025 take 1 tablet by mouth once daily Multivitamin With Folic Acid 1 TABLET tablet Discontinued 1 {tbl} PO DAILY October 20, 2018 1:00am June 21, 2025 5:16pm supplement Start: 10-20-2018 take 1 tablet by maicol th once daily Multivitamin With Folic Acid 1 TABLET tablet Active 1 {tbl} PO DAILY October 20, 2018 1:00am supplement Start: 10-20-2018 take 1 tablet by maicol th once daily Multivitamin With Folic Acid 1 TABLET tablet Active 1 {tbl} PO DAILY October 20, 2018 1:00am naproxen sodium 220 mg oral capsule (20 sources) Nonsteroidal Anti-inflammatory Drug Start: 09-24-2020 End: 05-28-2024 Naproxen Sodium 220 MG capsule Discontinued 220 mg PO NEEDED as needed for Pain 1-10 Or Fever September 24, 2020 1:00am Rehana 15th, 2024 3:47pm ondansetron 4 mg disintegrating oral tablet (20 sources) Serotonin-3 Receptor Antagonist Start: 09-30-2024 End: 12-25-2024 take 1 tablet by mouth every six hours as needed for nausea and vomiting Ondansetron 4 mg tablet,disintegr ating Discontinued 4 mg PO EVERY 6 HOURS as needed for nausea and vomiting 14 0 September 30, 2024 1:00am December 25, 2024 11:14am Start: 07-20-2021 End: 02-03-2022 take 1 tablet by mouth every six hours as needed for nausea Ondansetron 4 MG tablet Discontinued 4 mg PO EVERY 6 HOURS NEEDED as needed for Nausea July 20, 2021 10:14pm February 03, 2022 11:29am microencapsulated potassium chloride 20 meq extended release oral tablet (20 sources) Start: 06-20-2024 End: 04-15-2025 Potassium Chloride (Klor-Con M20) 20 mEq tablet,ER particles/crystals Discontinued 20 meq PO DAILY June 20, 2024 12:00am April 15, 2025 3:59pm Start: 02-03-2016 End: 09-22-2018 take 1 tablet by mouth once daily Potassium Chloride 20 MEQ tablet,ER particles/crystals Discontinued 20 meq PO DAILY February 03, 2016 12:00am September 22, 2018 12:53pm Start: 01-17-2012 End: 05-28-2024 take 1 tablet by mouth once daily Potassium Chloride 20 mEq tablet,ER particles/crystals Discontinued 20 meq PO DAILY 90 March 30, 2021 1:57pm February 03, 2022 11:54am Start: 01-17-2012 take 1 tablet by maicol th once daily KLOR-CON M20 20 MEQ CR-TABS One tablet by mouth daily POTASSIUM CHLORIDE HENRY CR [id number] Miguelangel Walton MD Start: 03-10-2011 take 1 tablet by maicol th once daily POTASSIUM CHLORIDE 20 MEQ PACK One tablet by mouth daily POTASSIUM CHLORIDE [id number] Saima Gonzalez pravastatin sodium 40 mg oral tablet (20 sources) HMG-CoA Reductase Inhibitor Start: 10-20-2018 End: 06-01-2019 take 2 tablets by mouth once daily Pravastatin Sodium 20 MG tablet Discontinued 40 mg PO DAILY October 20, 2018 1:00am June 01, 2019 3:13pm Start: 11-29-2016 End: 05-15-2025 take 1 tablet by mouth at bedtime Pravastatin 40 mg tablet Discontinued 40 mg PO AT BEDTIME 90 3 May 13, 2025 12:05pm May 15, 2025 10:31am cholesterol raNITIdine 150 mg oral tablet (20 sources) Histamine-2 Receptor Antagonist Start: 12-01-2020 End: 02-03-2022 Ranitidine Hcl Discontinued MG PO December 01, 2020 12:00am February 03, 2022 10:30am Start: 12-01-2020 End: 02-03-2022 Ranitidine Hcl Discontinued MG PO December 01, 2020 1:00am February 03, 2022 11:30am Start: 12-01-2020 End: 02-03-2022 Ranitidine Hcl Discontinued MG PO December 01, 2020 1:00am February 03, 2022 11:30am Start: 09-24-2020 End: 02-03-2022 Ranitidine Hcl 150 mg tablet Discontinued mg PO December 01, 2020 1:00am February 03, 2022 11:30am Start: 03-10-2011 End: 02-20-2020 take 1 tablet by mouth once daily as needed Ranitidine Hcl 150 mg tablet Discontinued 150 mg PO DAILY as needed June 01, 2019 3:13pm February 20, 2020 11:34am End: 10-08-2019 RaNITidine HCl 150 MG Cap ta ke 150 mg by mouth daily.. 0 10/08/2019 Discontinued (Medication Reconciliation (suppress cancel msg)) sulindac 200 mg oral tablet (20 sources) Nonsteroidal Anti-inflammatory Drug Start: 08-25-2024 End: 01-25-2025 take 1 mg by mouth once daily as needed sulindac 200 MG tablet Indications: Psoriatic arthritis mutilans , Psoriatic arthritis , Primary osteoarthritis of both knees , Cervical disc disorder, unspecified, unspecified cervical region , Cervical disc disorder , Pustulosis palmaris et plantaris , Psoriasis , Seborrheic eczema , Photoaged skin , Other skin changes due to chronic exposure to nonionizing radiation , Eczema, unspecified type , Asteatosis cutis , Actinic keratosis , Personal history of other malignant neoplasm of skin , 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 intermodal dispatcher (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 , On statin therapy , Nocturia , 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, care home, current use , Long-term current use of high risk medication other than anticoagulant , History of osteomyelitis , History of malignant neoplasm of skin , Encounter for long-term (current) use of non-steroidal anti-inflammatories 1 po q day PRN 90 tablet 3 08/25/2024 01/25/2025 Discontinued Start: 10-26-2023 End: 12-25-2024 take 1 tablet by mouth twice daily Sulindac 200 mg tablet Discontinued 200 mg PO TWICE A DAY November 11, 2023 1:00am December 25, 2024 11:14am timolol 2.5 mg/ml ophthalmic solution (20 sources) beta-Adrenergic Justino Start: 10-20-2018 End: 06-20-2024 Timolol Maleate 1 DROP drops Discontinued 1 NMA EACH EYE TWICE A DAY October 20, 2018 1:00am June 20, 2024 1:45pm glaucoma On Hold: on hold Start: 10-20-2018 Timolol Maleat e Active 1 DRP EACH EYE TWICE A DAY October 20, 2018 1:00am Start: 07-24-2018 End: 07-04-2023 timolol maleate 0.5 % Soluti on ophthalmic solution Start: 10-03-2017 End: 10-08-2019 timolol maleate 0.25 % Solut ion TIMOLOL MALEATE 0.25 % SOLN 0 10/03/2017 10/08/2019 Discontinued (Medication Reconciliation (suppress cancel msg)) Start: 10-03-2017 take 1 drop(s) into the eye(s) twice daily TIMOLOL MALEATE 0.25 % SOLN Take as directed, one drop in each eye twice a day TIMOLOL MALEATE [id number] Merrill Coppola NP timolol hemihydr ate (BETIMOL) 0.5 % Solution 1 drop 2 times daily.. affected eye(s) Active Vit C,Z-Tr-Juttn-Lutein-Zeax an 1 EACH capsule (9 sources) Start: 02-03-2016 End: 02-20-2020 take 1 capsule by mouth once daily Vit C,Q-Dd-Amkll-Lutein-Zeaxan 1 EACH capsule Discontinued 1 NMA PO DAILY February 03, 2016 12:00am February 20, 2020 11:35am Problems Active Problems Problem Classification Problem Date Documented Da te Episodic/Chronic Acquired foot deformities (20 sources) Acquired hammer toe of lesser toe of left foot; Translations: [Other hammer toe(s) (acquired), left foot] 12-23-2022 Chronic Acquired foot deformities (20 sources) Deformity of toe; Translations: [Acquired deformities of toe(s), unspecified, left foot] 05-27-2021 Episodic Allergic reactions (9 sources) Skin changes due to chronic exposure to non-ionizing radiation; Translations: [Other skin changes due to chronic exposure to nonionizing radiation] Onset: 9 04-18-2017 Chronic Bacterial infection (20 sources) Methicillin susceptible Staphylococcus aureus infection, unspecified site; Translations: [Infection by methicillin sensitive Staphylococcus aureus] Onset: 5 08-14-2015 Episodic Cancer of prostate (20 sources) Malignant tumor of prostate; Translations: [Malignant neoplasm of prostate] Onset: 2 04-18-2017 Chronic Cardiac dysrhythmias (20 sources) Ventricular premature beats; Translations: [Supraventricular tachycardia] Onset: 1 03-10-2011 Chronic Chronic kidney disease (20 sources) Chronic kidney disease stage 3B ; Translations: [Stage 3b chronic kidney disease] 02-28-2025 Chronic Chronic kidney disease (3 sources) Chronic kidney disease; Translations: [Chronic kidney disease, stage 3b] Onset: 5 Chronic ulcer of skin (20 sources) Pressure ulcer stage 2; Translations: [Pressure ulcer of unspecified site, stage 2] Onset: 5 Chronic Complications of surgical procedures or medical care (20 sources) Non-healing surgical wound; Translations: [Other complications of procedures, not elsewhere classified, initial encounter] 06-10-2021 Episodic Deficiency and other anemia (20 sources) Anemia; Translations: [Anemia, unspecified] Onset: 8 Resolved: 9 08-29-2017 Episodic Diabetes mellitus with complications (20 sources) Neuropathy due to type 2 diabetes mellitus; Translations: [Type 2 diabetes mellitus with diabetic neuropathy, unspecified] Onset: 7 09-25-2018 Chronic Diabetes mellitus without complication (20 sources) Diabetes mellitus; Translations: [Type 2 diabetes mellitus] Onset: 4 07-22-2014 Chronic Disorders of lipid metabolism (20 sources) Hyperlipidemia; Translations: [Hyperlipidemia, unspecified] Onset: 1 03-10-2011 Chronic Esophageal disorders (19 sources) Gastro-esophageal reflux disease without esophagitis; Translations: [Gastroesophageal reflux disease without esophagitis] Onset: 8 09-25-2018 Chronic Essential hypertension (20 sources) Hypertensive disorder; Translations: [Essential hypertension] Onset: 1 03-10-2011 Chronic Gastrointestinal hemorrhage (2 sources) Gastrointestinal hemorrhage; Translations: [Hemorrhage of anus and rectum] Onset: 5 06-21-2025 Episodic Genitourinary symptoms and ill-defined conditions (4 sources) Other difficulties with micturition; Translations: [Difficulty in urination] Onset: 2 04-18-2017 Glaucoma (19 sources) Glaucoma; Translations: [Unspecified glaucoma] 09-25-2018 Chronic Hyperplasia of prostate (19 sources) Benign prostatic hyperplasia; Translations: [Benign prostatic hyperplasia without lower urinary tract symptoms] Onset: 2 04-18-2017 Chronic Infective arthritis and osteomyelitis (except that caused by tuberculosis or sexually transmitted di (20 sources) Other chronic osteomyelitis, unspecified ankle and foot; Translations: [Other acute osteomyelitis, unspecified ankle and foot] Onset: 5 01-16-2016 Chronic Nausea and vomiting (20 sources) Nausea and vomiting; Translations: [Nausea with vomiting, unspecified] 07-20-2021 Episodic Nutritional deficiencies (20 sources) Deficiency of macronutrients; Translations: [Unspecified protein-calorie malnutrition] 05-27-2021 Chronic Osteoarthritis (20 sources) Osteoarthritis of knee; Translations: [Primary gonarthrosis, bilateral] Onset: 8 Resolved: 1 04-18-2017 Chronic Other aftercare (12 sources) Patient encounter status; Translations: [[facility] (current) use of non-steroidal anti-inflammatories (NSAID)] Onset: 7 Episodic Other aftercare (20 sources) H/O: high risk medication; Translations: [Other care home (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] 10-29-2017 Episodic Other aftercare (3 sources) Long-term 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; Translations: [Other care home (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] Episodic Other circulatory disease (13 sources) Raynaud's phenomenon; Translations: [Raynaud's syndrome without gangrene] 01-09-2025 Chronic Other diseases of veins and lymphatics (1 source) Stasis dermatitis; Translations: [Venous insufficiency (chronic) (peripheral)] 10-31-2024 Episodic Other gastrointestinal disorders (20 sources) Constipation; Translations: [Constipation, unspecified] 07-20-2021 Episodic Other inflammatory condition of skin (20 [...] soles; 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] Onset: 5 09-25-2018 Chronic Other inflammatory condition of skin (2 sources) Pustulosis palmaris et plantaris; 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] Onset: 8 Chronic Other inflammatory condition of skin (3 sources) Psoriasis, unspecified; Translations: [Psoriasis, unspecified] Onset: 8 Chronic Other inflammatory condition of skin (3 sources) Pruritus, unspecified; Translations: [Unspecified pruritic disorder] Onset: 5 06-12-2025 Episodic Other injuries and conditions due to external causes (20 sources) Open wound with complication; Translations: [Other injury of unspecified body region, initial encounter] 03-18-2021 Episodic Other injuries and conditions due to external causes (9 sources) Open wound; Translations: [Other injury of unspecified body region, initial encounter] 03-18-2021 Episodic Other lower respiratory disease (20 sources) Dyspnea; Translations: [Shortness of breath] 10-29-2017 Episodic Other non-traumatic joint disorders (9 sources) Unstable knee; Translations: [Other instability, unspecified knee] 05-28-2024 Episodic Other nutritional; endocrine; and metabolic disorders (20 sources) Body mass index 30+ - obesity; Translations: [Body mass index (BMI) 31.0-31.9, adult] Onset: 4 09-25-2018 Chronic Other screening for suspected conditions (not mental disorders or infectious disease) (20 sources) Renal function tests abnormal; Translations: [Abnormal results of kidney function studies] Onset: 7 Resolved: 3 01-18-2018 Episodic Other skin disorders (3 sources) Multiple actinic keratoses; Translations: [Actinic keratosis] 07-11-2024 Episodic Other skin disorders (1 source) Skin lesion; Translations: [Disorder of the skin and subcutaneous tissue, unspecified] 06-12-2025 Episodic Other skin disorders (2 sources) Disorder of the skin and subcutaneous tissue, unspecified; Translations: [Disorder of the skin and subcutaneous tissue, unspecified] Onset: Episodic Other upper respiratory disease (20 sources) Frontal sinus pain; Translations: [Other specified disorders of nose and nasal sinuses] 04-27-2021 Episodic Pancreatic disorders (not diabetes) (1 source) Pancreatic duct calculus; Translations: [Other specified diseases of pancreas] 06-21-2025 Episodic Peripheral and visceral atherosclerosis (20 sources) Intermittent claudication; Translations: [Peripheral vascular disease, unspecified] Onset: 8 05-22-2018 Chronic Pulmonary heart disease (20 sources) Secondary pulmonary hypertension; Translations: [Other secondary pulmonary hypertension] Onset: 5 07-31-2015 Chronic Residual codes; unclassified (20 sources) Obstructive sleep apnea syndrome; Translations: [Obstructive sleep apnea (adult) (pediatric)] 06-30-2018 Chronic Skin and subcutaneous tissue infections (20 sources) Cellulitis of right toe; Translations: [Cellulitis] Onset: 5 08-14-2015 Episodic Skin and subcutaneous tissue infections (5 sources) [...] (2 sources) Long-term drug therapy; Translations: [Other intermodal dispatcher (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] Onset: 1 03-10-2011 Unclassified (7 sources) Drug indicated; Translations: [Other intermodal dispatcher (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] 09-25-2018 Unclassified (13 sources) Patient encounter status; Translations: [Encounter for long-term (current) use of non-steroidal anti-inflammatories] Onset: 7 08-29-2017 Unclassified (2 sources) Long-term 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; Translations: [[facility] 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] Unclassified (2 sources) 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 (current) use of antimetabolite agent; Translations: [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 (current) use of antimetabolite agent] Onset: 7 Unclassified (2 sources) 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 (current) use of immunosuppressive biologic; Translations: [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 (current) use of immunosuppressive biologic] Onset: 3 Past or Other Problems Problem Classification Problem Date Documented Da te Episodic/Chronic Allergic reactions (20 sources) Solar degeneration; Translations: [Contact dermatitis due to solar radiation] Onset: 9 Resolved: 3 04-18-2017 Episodic Deficiency and other anemia (9 sources) Normocytic normochromic anemia; Translations: [Anemia, unspecified] Onset: 8 Resolved: 2 05-19-2022 Episodic Deficiency and other anemia (8 sources) Macrocytic anemia; Translations: [Nutritional anemia, unspecified] Onset: 4 05-07-2024 Episodic Deficiency and other anemia (3 sources) Nutritional anemia, unspecified; Translations: [Nutritional anemia, unspecified] Onset: 4 Episodic Deficiency and other anemia (3 sources) Other specified anemias; Translations: [Other specified anemias] Onset: 4 Episodic Genitourinary symptoms and ill-defined conditions (20 sources) Urgent desire to urinate; Translations: [Nocturia] Onset: 2 04-18-2017 Episodic Neoplasms of unspecified nature or uncertain behavior (20 sources) Neoplasm of uncertain behavior of skin; Translations: [Neoplasm of uncertain behavior of skin] Onset: 2 08-29-2017 Episodic Open wounds of extremities (20 sources) Open wound of foot except toes with complication; Translations: [Unspecified open wound, unspecified foot, initial encounter] Onset: 5 08-14-2015 Episodic Other aftercare (20 sources) 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 methotrexate user; Translations: [Other care home (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] Onset: 7 08-29-2017 Episodic Other aftercare (20 sources) Long-term current use of drug therapy; Translations: [Other intermodal dispatcher (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] Onset: 5 Episodic Other aftercare (20 sources) Drug therapy finding; Translations: [Other intermodal dispatcher (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] Onset: 7 Episodic Other aftercare (12 sources) Long-term current use of antibiotic; Translations: [[facility] (current) use of antibiotics] Onset: 1 Resolved: 2 Episodic Other aftercare (11 sources) Drug indicated; Translations: [Infliximab (Remicade) long-term use] Onset: 3 07-04-2023 Episodic Other aftercare (6 sources) Long-term current use of anticoagulant; Translations: [[facility] (current) use of anticoagulants] Onset: 5 01-25-2025 Episodic Other aftercare (5 sources) 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 use of non-steroidal anti-inflammatory drug; Translations: [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 (current) use of non-steroidal anti-inflammatories (NSAID)] Onset: 7 Resolved: 5 01-25-2025 Episodic Other aftercare (2 sources) Other intermodal dispatcher (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; Translations: [Other intermodal dispatcher (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] Onset: 5 Episodic Other aftercare (3 sources) 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 (current) use of anticoagulants; Translations: [[facility] (current) use of anticoagulants] Onset: 5 Episodic Other aftercare (2 sources) 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 (current) use of non-steroidal anti-inflammatories (NSAID); Translations: [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 (current) use of non-steroidal anti-inflammatories (nsaid)] Onset: 5 Episodic Other connective tissue disease (16 sources) History of osteomyelitis; Translations: [Personal history of other diseases of the musculoskeletal system and connective tissue] Onset: 1 Episodic Other connective tissue disease (3 sources) Personal history of other diseases of the musculoskeletal system and connective tissue; Translations: [Personal history of other diseases of the musculoskeletal system and connective tissue] Onset: 1 Episodic Other connective tissue disease (1 source) Other specified soft tissue disorders; Translations: [Other specified soft tissue disorders] Onset: 5 Episodic Other diseases of veins and lymphatics (2 sources) Venous insufficiency (chronic) (peripheral); Translations: [Venous insufficiency (chronic) (peripheral)] Onset: 4 Episodic Other gastrointestinal disorders (12 sources) Alteration in bowel elimination; Translations: [Change in bowel habit] Onset: 2 04-18-2017 Episodic Other gastrointestinal disorders (7 sources) Altered bowel function; Translations: [Change in bowel habit] Onset: 2 04-18-2017 Episodic Other inflammatory condition of skin (20 sources) Seborrheic dermatitis; Translations: [Seborrheic dermatitis, unspecified] Onset: 2 04-18-2017 Episodic Other inflammatory condition of skin (3 sources) Seborrheic dermatitis, unspecified; Translations: [Seborrheic dermatitis, unspecified] Onset: 7 Episodic Other non-epithelial cancer of skin (20 sources) History of malignant neoplasm of skin; Translations: [Personal history of other malignant neoplasm of skin] Onset: 9 04-18-2017 Episodic Other skin disorders (9 sources) Senile hyperkeratosis; Translations: [Seborrheic keratosis] Onset: 9 04-18-2017 Episodic Other skin disorders (20 sources) Actinic keratosis; Translations: [Actinic keratosis] Onset: 9 08-29-2017 Episodic Other skin disorders (19 sources) Fissure in skin; Translations: [Changes in skin texture] Onset: 2 04-18-2017 Episodic Other skin disorders (20 sources) Asteatosis cutis; Translations: [Xerosis cutis] Onset: 0 04-18-2017 Episodic Other skin disorders (19 sources) Hypertrophic scar; Translations: [Hypertrophic scar] Onset: 2 04-18-2017 Episodic Other skin disorders (20 sources) Senile lentigo; Translations: [Other melanin hyperpigmentation] Onset: 0 04-18-2017 Episodic Other skin disorders (19 sources) Scar conditions and fibrosis of skin; Translations: [Scar conditions and fibrosis of skin] Onset: 9 04-18-2017 Episodic Other skin disorders (19 sources) Changes in skin texture; Translations: [Changes in skin texture] Onset: 3 04-18-2017 Episodic Other skin disorders (7 sources) Vesicular eczema of hands and/or feet; Translations: [Vesicular palmoplantar eczema] Onset: 2 04-18-2017 Episodic Other skin disorders (16 sources) Other seborrheic keratosis; Translations: [Seborrheic keratosis] Onset: 9 04-18-2017 Episodic Other skin disorders (12 sources) Vesicular eczema; Translations: [Dyshidrosis [pompholyx]] Onset: 2 04-18-2017 Episodic Other skin disorders (3 sources) Dyshidrosis [pompholyx]; Translations: [Dyshidrosis (pompholyx)] Onset: 7 Episodic Other skin disorders (3 sources) Other melanin hyperpigmentation; Translations: [Other melanin hyperpigmentation] Onset: 7 Episodic Other skin disorders (3 sources) Xerosis cutis; Translations: [Xerosis cutis] Onset: 7 Episodic Other skin disorders (3 sources) Actinic keratosis; Translations: [Actinic keratosis] Onset: 7 Episodic Unclassified (15 sources) Drug therapy finding; Translations: [Long-term current use of high risk medication other than anticoagulant] Onset: 7 04-18-2017 Unclassified (8 sources) Long-term current use of drug therapy; Translations: [Other care home (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] 09-25-2018 Unclassified (1 source) Seborrheic keratosis 01-25-2025 Unclassified (1 source) 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 (current) use of antimetabolite agent; Translations: [[facility] (current) use of antimetabolite agent] Onset: 5 Unclassified (1 source) 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 (current) use of immunosuppressive biologic; Translations: [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 (current) use of immunosuppressive biologic] Onset: 5 Results Test Name Value Interpretation Reference Range Facility Abdomen/Pelvis W IV Cont ONL Yon 06-21-2025 Abdomen/Pelvis W IV Cont ONLY Normal [facility] Absolute lymphocyte countOrd ered By: Edgar Gudino on 06-21-2025 Lymphocytes Auto (Unsp spec) [#/Vol] 1.01 10*3/uL 0.83-4.51 [facility] Absolute neutrophil countOrd ered By: Edgar Gudino on 06-21-2025 Neutrophils (Bld) [#/Vol] 9.7 10*3/uL High 2.0-7.7 [facility] Anion gap in Serum or Plasma Ordered By: Edgar Gudino on 06-21-2025 Anion gap [Moles/Vol] 15 mmol/L 5-15 [facility] Automated lymphocyte count a s percentage of total leukocytesOrdered By: Edgar Gudino on 06-21-2025 Lymphocytes/100 WBC Auto (Unsp spec) 8.8 % Low 19-41 [facility] BUN/creatinine ratioOrdered By: Edgar Gudino on 06-21-2025 Urea nitrogen/Creatinine [Mass ratio] 22.6 mg/mg High 10-20 [facility] Basophil percentageOrdered B y: Edgar Gudino on 06-21-2025 Basophils/100 WBC (Bld) 0.3 % 0-1 [facility] Bilirubin Test strip Ql (U)O rdered By: Edgar Gudino on 06-21-2025 Bilirubin Ql (U) Negative Negative [facility] Bilirubin, totalOrdered By: Edgar Gudino on 06-21-2025 Bilirubin [Mass/Vol] 1.03 mg/dL 0.00-1.30 [facility] CBC W/Diff, Automatedon Absolute Lymph 1.01 X10 3/uL Normal 0.83-4.51 [facility] Comment on above: Performed By: #### L 100.0100, M100.7900 ####[facility] [address] [place], [address] Absolute Neut 9.7 X10 3/uL High 2.0-7.7 [facility] Comment on above: Performed By: #### L 100.0100, M100.7900 ####[facility] [address] [place], [address] Basophils/100 WBC (Bld) 0.3 % Normal 0-1 [facility] Comment on above: Performed By: #### L 100.0100, M100.7900 ####[facility] [address] [place], [address] Eosinophils/100 WBC (Bld) 0.7 % Normal 0-5 [facility] Comment on above: Performed By: #### L 100.0100, M100.7900 ####[facility] [address] [place], [address] Erythrocyte distribution width (RBC) [Ratio] 12.7 % Normal 11.6-14.6 [facility] Comment on above: Performed By: #### L 100.0100, M100.7900 ####[facility] [address] [place], [address] Hematocrit (Bld) [Volume fraction] 43.5 % Normal 40-54 [facility] Comment on above: Performed By: #### L 100.0100, M100.7900 ####[facility] [address] [place], [address] Hemoglobin (Bld) [Mass/Vol] 15.7 g/dL Normal 13.0-16.5 [facility] Comment on above: Performed By: #### L 100.0100, M100.7900 ####[facility] [address] [place], [address] IG% 0.300 Normal 0.0-0.9 [facility] Comment on above: Result Comment: IG% - Immature Granulocytes (promyelocytes, myelocytes andmetamyelocytes) > 1% indicates that a LEFT SHIFT is Present. Performed By: #### L 100.0100, M100.7900 ####[facility] [address] [place], [address] Lymphocytes/100 WBC (Bld) 8.8 % Low 19-41 [facility] Comment on above: Performed By: #### L 100.0100, M100.7900 ####[facility] [address] [place], [address] MCH (RBC) [Entitic mass] 33.9 pg High 27.0-32.0 [facility] Comment on above: Performed By: #### L 100.0100, M100.7900 ####[facility] [address] [place], [address] MCHC (RBC) [Mass/Vol] 36.1 g/dL High 32-36 [facility] Comment on above: Performed By: #### L 100.0100, M100.7900 ####[facility] [address] [place], [address] MCV (RBC) [Entitic vol] 94.0 fL Normal 80-94 [facility] Comment on above: Performed By: #### L 100.0100, M100.7900 ####[facility] [address] [place], [address] Monocytes/100 WBC (Bld) 5.6 % Normal 0-10 [facility] Comment on above: Performed By: #### L 100.0100, M100.7900 ####[facility] [address] [place], [address] Neutrophils/100 WBC (Bld) 84.3 % High 47-70 [facility] Comment on above: Performed By: #### L 100.0100, M100.7900 ####[facility] [address] [place], [address] Nucleated RBC (Bld) [#/Vol] 0 10*3/uL Normal 0-5 [facility] Comment on above: Performed By: #### L 100.0100, M100.7900 ####[facility] [address] [place], [address] Platelet mean volume (Bld) [Entitic vol] 10.5 fL Normal 6.2-12.0 [facility] Comment on above: Performed By: #### L 100.0100, M100.7900 ####[facility] [address] [place], [address] Platelets (Bld) [#/Vol] 234 10*3/uL Normal 150-450 [facility] Comment on above: Performed By: #### L 100.0100, M100.7900 ####[facility] [address] [place], [address] RBC (Bld) [#/Vol] 4.63 10*6/uL Normal 4.6-6.2 [facility] Comment on above: Performed By: #### L 100.0100, M100.7900 ####[facility] [address] [place], [address] RDW SD 41.9 fl Normal 35.1-43.9 [facility] Comment on above: Performed By: #### L 100.0100, M100.7900 ####[facility] [address] [place], [address] WBC (Bld) [#/Vol] 11.5 10*3/uL High 4.4-11.0 [facility] Comment on above: Performed By: #### L 100.0100, M100.7900 ####[facility] [address] [place], [address] Carbon dioxide, total [Moles /volume] in Central venous bloodOrdered By: Edgar Gudino on 06-21-2025 CO2 [Moles/Vol] 19.1 mmol/L Low 21.0-32.0 [facility] Chloride assayOrdered By: Candelario Gudino on 06-21-2025 Chloride [Moles/Vol] 101 mmol/L 98-108 [facility] Comprehensive Metabolic Prof ilon 06-21-2025 Albumin [Mass/Vol] 4.5 g/dL Normal 3.4-4.8 [facility] Comment on above: Performed By: #### L 503.6005, L501.2450, L500.4050 ####[facility] [address] [place], [address] Albumin/Globulin [Mass ratio] 1.2 {ratio} Normal 0.9-2.4 [facility] Comment on above: Performed By: #### L 503.6005, L501.2450, L500.4050 ####[facility] [address] [place], [address] ALK PHOS 98 U/L Normal 40-129 [facility] Comment on above: Performed By: #### L 503.6005, L501.2450, L500.4050 ####[facility] [address] [place], [address] ALT [Catalytic activity/Vol] 69 U/L High <=46 [facility] Comment on above: Performed By: #### L 503.6005, L501.2450, L500.4050 ####[facility] [address] [place], [address] AST [Catalytic activity/Vol] 55 U/L High <=37 [facility] Comment on above: Performed By: #### L 503.6005, L501.2450, L500.4050 ####[facility] [address] [place], [address] Bilirubin [Mass/Vol] 1.03 mg/dL Normal 0.00-1.30 [facility] Comment on above: Performed By: #### L 503.6005, L501.2450, L500.4050 ####[facility] [address] [place], [address] BUN/CRE 22.6 RATIO High 10-20 [facility] Comment on above: Performed By: #### L 503.6005, L501.2450, L500.4050 ####[facility] [address] [place], [address] Calcium [Mass/Vol] 11.2 mg/dL High 7.6-11.0 [facility] Comment on above: Performed By: #### L 503.6005, L501.2450, L500.4050 ####[facility] [address] [place], [address] Chloride [Moles/Vol] 101 mmol/L Normal 98-108 [facility] Comment on above: Performed By: #### L 503.6005, L501.2450, L500.4050 ####[facility] [address] [place], [address] CO2 [Moles/Vol] 19.1 mmol/L Low 21.0-32.0 [facility] Comment on above: Performed By: #### L 503.6005, L501.2450, L500.4050 ####[facility] [address] [place], [address] Creatinine [Mass/Vol] 1.92 mg/dL High 0.70-1.20 [facility] Comment on above: Performed By: #### L 503.6005, L501.2450, L500.4050 ####[facility] [address] [place], [address] ECRCL 33.12 ml/min Low 50-250 [facility] Comment on above: Performed By: #### L 503.6005, L501.2450, L500.4050 ####[facility] [address] [place], [address] GAP 15 Normal 5-15 [facility] Comment on above: Performed By: #### L 503.6005, L501.2450, L500.4050 ####[facility] [address] [place], [address] GFR/1.73 sq M.predicted among non-blacks MDRD (S/P/Bld) [Vol rate/Area] 35 mL/min/{1.73_m2} Low >60 [facility] Comment on above: Result Comment: mL/m in/1.73m2 CKD-EPI Creatinine Equation (2020) Performed By: #### L 503.6005, L501.2450, L500.4050 ####[facility] [address] [place], [address] Globulin (S) [Mass/Vol] 3.9 g/dL Normal 2.2-4.2 [facility] Comment on above: Performed By: #### L 503.6005, L501.2450, L500.4050 ####[facility] [address] [place], [address] Glucose [Mass/Vol] 202 mg/dL High 70-99 [facility] Comment on above: Performed By: #### L 503.6005, L501.2450, L500.4050 ####[facility] [address] [place], [address] Potassium [Moles/Vol] 4.8 mmol/L Normal 3.3-5.1 [facility] Comment on above: Performed By: #### L 503.6005, L501.2450, L500.4050 ####[facility] [address] [place], [address] Sodium [Moles/Vol] 135 mmol/L Normal 133-145 [facility] Comment on above: Performed By: #### L 503.6005, L501.2450, L500.4050 ####[facility] [address] [place], [address] T PROT 8.4 g/dL Normal 5.9-8.4 [facility] Comment on above: Performed By: #### L 503.6005, L501.2450, L500.4050 ####[facility] [address] [place], [address] Urea nitrogen [Mass/Vol] 43 mg/dL High 4-19 [facility] Comment on above: Performed By: #### L 503.6005, L501.2450, L500.4050 ####[facility] [address] [place], [address] Emergency Department Summary on 06-21-2025 Emergency Department Summary Normal [facility] Eosinophil percentageOrdered By: Edgar Gudino on 06-21-2025 Eosinophils/100 WBC (Bld) 0.7 % 0-5 [facility] Erythrocyte distribution wid th ratioOrdered By: Edgar Gudino on 06-21-2025 Erythrocyte distribution width (RBC) [Ratio] 12.7 % 11.6-14.6 [facility] Erythrocyte distribution wid th standard deviationOrdered By: Edgar Manning on 06-21-2025 Erythrocyte distribution width (RBC) [Ratio] 41.9 fl 35.1-43.9 [facility] Glomerular filtration rate ( GFR) estimation/1.73 sq m using serum, plasma, or whole bOrdered By: Edgar Gudino on 06-21-2025 GFR/1.73 sq M.predicted among non-blacks MDRD (S/P/Bld) [Vol rate/Area] 35 mL/min/{1.73_m2} Low >60 [facility] Comment on above: mL/min/1.73m2 CKD-EP I Creatinine Equation (2020) Hematocrit Auto (Bld) [Volum e fraction]Ordered By: Edgar Gudino on 06-21-2025 Hematocrit (Bld) [Volume fraction] 43.5 % 40-54 [facility] Hemoglobin measurementOrdere d By: Edgar Gudino on 06-21-2025 Hemoglobin (Bld) [Mass/Vol] 15.7 g/dL 13.0-16.5 [facility] Immature granulocytes/100 WB C Auto (Bld)Ordered By: Edgar Gudino on 06-21-2025 Immature granulocytes/100 WBC (Bld) 0.300 % 0.0-0.9 [facility] Comment on above: IG% - Immature Granu locytes (promyelocytes, myelocytes and metamyelocytes) > 1% indicates that a LEFT SHIFT is Present. Ketones Test strip Ql (U)Ord ered By: Edgar Gudino on 06-21-2025 Ketones Ql (U) Negative Negative [facility] Laboratory - Chemistry and C hemistry - challengeOrdered By: Edgar Gudino on 06-21-2025 AST [Catalytic activity/Vol] 55 U/L High <38 [facility] Lactic Acidon 06-21-2025 Lactate [Moles/Vol] 1.5 mmol/L Normal 0.0-2.0 [facility] Comment on above: Order Comment: Y Performed By: #### L 503.2180, L501.2450, L500.4050 ####[facility] [address] [facility] [place] [place], [place], [id number] Lactic acid measurementOrder ed By: Edgar Gudino on 06-21-2025 Lactate [Moles/Vol] 1.5 mmol/L 0.0-2.0 [facility] Lipase measurementOrdered By : Edgar Gudino on 06-21-2025 Lipase [Catalytic activity/Vol] 450 U/L High 13-75 [facility] Comment on above: Please note:LIPASE r evised reference range effective 23. New Lipase methodology. Expected to produce lower values than the previous assay method. NEW Reference Range: 13 - 75 U/L Result Comment: Sid ott note:LIPASE revised reference range effective 23.New Lipase methodology. Expected to produce lower valuesthan the previous assay method.NEW Reference Range: 13 - 75 U/L Performed By: #### L 503.6005, L501.2450, L500.4050 ####[facility] [address] [place], [address] MCV (mean corpuscular volume ) determinationOrdered By: Edgar Gudino on 06-21-2025 MCV (RBC) [Entitic vol] 94.0 fL 80-94 [facility] Mean corpuscular hemoglobin (MCH) determinationOrdered By: Edgar Gudino on 06-21-2025 MCH (RBC) [Entitic mass] 33.9 pg High 27.0-32.0 [facility] Mean corpuscular hemoglobin concentration (MCHC) determinationOrdered By: Edgar Gudino on 06-21-2025 MCHC (RBC) [Mass/Vol] 36.1 g/dL High 32-36 [facility] Mean platelet volume determi nationOrdered By: Edgar Gudino on 06-21-2025 Platelet mean volume (Bld) [Entitic vol] 10.5 fL 6.2-12.0 [facility] Microscopic analysis of urin e for red blood cells (RBC)Ordered By: Edgar Gudino on 06-21-2025 Microscopic analysis of urine for red blood cells (RBC) 0-5 SEEN /hpf 0-5 [facility] Monocyte percentageOrdered B y: Edgar Gudino on 06-21-2025 Monocytes/100 WBC (Bld) 5.6 % 0-10 [facility] Mucus LM Ql (Urine sed)Order ed By: Edgar Gudino on 06-21-2025 Mucus Ql (Urine sed) 0 SEEN /hpf [facility] Neutrophil percentageOrdered By: Edgar Gudino on 06-21-2025 Neutrophils/100 WBC (Bld) 84.3 % High 47-70 [facility] Nitrite Test strip Ql (U)Ord ered By: Edgar Gudino on 06-21-2025 Nitrite Ql (U) Negative Negative [facility] Nucleated red blood cell per centageOrdered By: Edgar Gudino on 06-21-2025 Nucleated RBC/100 WBC (Bld) [Ratio] 0 % 0-5 [facility] Platelet countOrdered By: Candelario Gudino on 06-21-2025 Platelets (Bld) [#/Vol] 234 10*3/uL 150-450 [facility] Potassium measurement (mass/ volume)Ordered By: Edgar Gudino on 06-21-2025 Potassium (Unsp spec) [Mass/Vol] 4.8 mmol/L 3.3-5.1 [facility] Protein Test strip Ql (U)Ord ered By: Edgar Gudino on 06-21-2025 Protein Ql (U) 30 mg/dl High Negative [facility] RBC Auto (Bld) [#/Vol]Ordere d By: Edgar Gudino on 06-21-2025 RBC (Bld) [#/Vol] 4.63 10*6/uL 4.6-6.2 [facility] Serum creatinine measurement (mass/volume)Ordered By: Edgar Gudino on 06-21-2025 Creatinine [Mass/Vol] 1.92 mg/dL High 0.70-1.20 [facility] Serum globulin measurementOr dered By: Edgar Gudino on 06-21-2025 Globulin (S) [Mass/Vol] 3.9 g/dL 2.2-4.2 [facility] Serum glucose measurement (m ass/volume)Ordered By: Edgar Gudino on 06-21-2025 Glucose [Mass/Vol] 202 mg/dL High 70-99 [facility] Serum or plasma alanine pham otransferase (ALT) measurementOrdered By: Edgar Gudino on 06-21-2025 ALT [Catalytic activity/Vol] 69 U/L High <47 [facility] Serum or plasma albumin amadou urement (mass/volume)Ordered By: Edgar Manning on 06-21-2025 Albumin [Mass/Vol] 4.5 g/dL 3.4-4.8 [facility] Serum or plasma albumin/glob ulin mass ratioOrdered By: Edgar Gudino on 06-21-2025 Albumin/Globulin [Mass ratio] 1.2 {ratio} 0.9-2.4 [facility] Serum or plasma alkaline jovana sphatase measurementOrdered By: Edgar Gudino on 06-21-2025 ALP [Catalytic activity/Vol] 98 U/L 40-129 [facility] Serum or plasma calcium amadou urement (mass/volume)Ordered By: Edgar Manning on 06-21-2025 Calcium [Mass/Vol] 11.2 mg/dL High 7.6-11.0 [facility] Serum or plasma urea nitroge n measurement (mass/volume)Ordered By: Edgar Gudino on 06-21-2025 Urea nitrogen [Mass/Vol] 43 mg/dL High 4-19 [facility] Sodium levelOrdered By: Aly Gudino on 06-21-2025 Sodium [Moles/Vol] 135 mmol/L 133-145 [facility] Squamous epithelial cells de tection in urine sediment by light microscopyOrdered By: Edgar Gudino on 06-21-2025 Epithelial cells.squamous LM Ql (Urine sed) 0-5 SEEN /hpf 0-5 [facility] Stool Occult Blood iFOBon STOB Positive Normal [facility] Comment on above: Performed By: #### L 100.0100, M100.7900 ####[facility] [address] [place], [address] Stool gastrointestinal hemog lobin detection by immunologic methodOrdered By: Edgar Gudino on 06-21-2025 Lower GI hemoglobin IA Ql (Stl) Positive Abnormal [facility] Total proteinOrdered By: Pj Gudino on 06-21-2025 Protein [Mass/Vol] 8.4 g/dL 5.9-8.4 [facility] Urinalysis, Completeon 06-21 EPI,SQUAMOUS 0-5 SEEN Normal 0-5 [facility] Comment on above: Order Comment: CLEAN CATCH Performed By: #### L 400.0001 ####[facility] [address] [place], [address] RBC 0-5 SEEN Normal 0-5 [facility] Comment on above: Order Comment: CLEAN CATCH Performed By: #### L 400.0001 ####[facility] [address] [place], [address] WBC 0-5 SEEN Normal 0-5 [facility] Comment on above: Order Comment: CLEAN CATCH Performed By: #### L 400.0001 ####[facility] [address] [place], [address] BACTERIA 0 SEEN Normal None Seen [facility] Comment on above: Order Comment: CLEAN CATCH Performed By: #### L 400.0001 ####[facility] [address] [place], [address] Mucus Ql (Urine sed) 0 SEEN Normal [facility] Comment on above: Order Comment: CLEAN CATCH Performed By: #### L 400.0001 ####[facility] [address] [place], [address] Urine clarityOrdered By: Pj Gudino on 06-21-2025 Clarity (U) Clear Clear [facility] Urine color determinationOrd ered By: Edgar Gudino on 06-21-2025 Color (U) Yellow Yellow [facility] Urine glucose detectionOrder ed By: Edgar Gudino on 06-21-2025 Glucose Ql (U) 1000 mg/dl High Normal [facility] Urine leukocyte esterase det ection by dipstickOrdered By: Edgar Gudino on 06-21-2025 Leukocyte esterase Test strip Ql (U) Negative Negative [facility] Urine pHOrdered By: Edgar Grissom on 06-21-2025 pH (U) 5.0 [pH] 5.0 - 8.0 [facility] Urine sediment bacteria coun t by microscopy (number/high power field)Ordered By: Edgar Gudino on 06-21-2025 Bacteria LM.HPF (Urine sed) [#/Area] 0 /[HPF] None Seen [facility] Urine specific gravity measu rementOrdered By: Edgar Gudino on 06-21-2025 Specific gravity (U) [Rel density] 1.020 1.002-1.030 [facility] Urine urobilinogen measureme ntOrdered By: Edgar Gudino on 06-21-2025 Urobilinogen Ql (U) Normal mg/dl Normal [facility] White blood cell (WBC) count Ordered By: Edgar Gudino on 06-21-2025 WBC (Bld) [#/Vol] 11.5 10*3/uL High 4.4-11.0 [facility] White blood cell countOrdere d By: Edgar Gudino on 06-21-2025 White blood cell count 0-5 SEEN /hpf 0-5 [facility] Office Visiton 06-12-2025 Follow-up visit [id number] Yessi Hatch 1945 M Date Provider Department Center 06/12/2025 [id number] CONRAD [facility] None No family history on file Level of Service:76058 MD OFFICE/OUTPATIENT ESTABLISHED MOD MDM 30 MIN Reason for Visit and Comments: Skin Lesion [[id number]] - EVAN-10/31/2024,ZB Normal [facility] Progress Noteon 06-12-2025 Progress Note DATE OF SERVICE: 06/12/2025 PATIENT NAME: Yessi Hatch : 1945 AGE: 79 y.o. CLINIC NUMBER: [id number] Visit type: Established patient Chief Complaint Patient presents with Skin Lesion EVAN-10/31/2024,ZB Subjective HISTORY OF PRESENT ILLNESS: This is a 79 y.o. male who presents for evaluation of skin lesion; last seen 10/31/2024. Patient states he is on inflectra infusion for psoriatic arthritis. Pt h/o numerous BCC and SCC. F/u- actinic keratoses located on the Left Forehead, Left Parotid Area, Left Shinto, Left Temporal Scalp, Left Zygomatic Area, Right Forehead, Right Parotid Area, Right Shinto, Right Temporal Scalp, Right Zygomatic Area At this visit patient was treated with efudex to apply to sides of face BID x three weeks. Patient states the one on his left neck has not healed Denies redness, roughness, flaking, itching, bleeding, and tenderness. Patient does believe that the areas have resolved-besides the left neck F/u-stasis derm on left leg. Improved since last visit. Currently treating with: - Triamcinolone 0.1% ointment Denies itching, bleeding, pain. Denies flares Pt. Has been getting severe itching of both of his forearms for a few weeks. He does not see a rash, but the itching is very bothersome and OTC anti-itch lotion does not help for long. History of pacemaker/ defibrillator? No History of HIV/ Hep C? No Allergies to Lidocaine, Epinephrine, Latex or Adhesive? No Review of Systems Orders Placed This Encounter Medications fluocinolone (Carmichael-Smoothe) 0.01 % external oil Sig: Apply to itchy areas of skin at bedtime while skin is damp Dispense: 120 mL Refill: 5 Vitals: 06/12/25 1117 BP: 135/82 Pulse: 82 PHYSICAL EXAM GENERAL APPEARANCE: alert & oriented x3, pleasant. Well developed, well nourished. PSYCH: appropriate mood and affect DERMATOLOGY: (all measurements are in cm, unless otherwise noted) Skin Exam 1. SKIN LESION Left Anterior Neck 2cm round hemorrhagic ulcer of the left neck; no specific findings on dermoscopy []Chronic [x]Acute []Stable [x]Flaring/Exacerbatio n Lesion of the left neck is an ulcer, but it is unclear if this is the primary lesion or if this is the appearance of the site due to having used fluorouracil. I asked the patient to stop treatment at the site and return in three weeks so I can assess what sort of lesion might be present and whether a biopsy is needed. 2. PRURITUS (2) Left Arm, Right Arm Sun damage and scattered AK's but no rash noted. []Chronic [x]Acute []Stable [x]Flaring/Exacerbatio n Educated and reassured. Treatment options, risks, benefits, and expectations reviewed. Start: Dermasmoothe oil to damp skin of upper extremities every day prn itching Follow up in about 8 weeks (around 08/07/2025). Georgina Moore MD 06/12/25 7:49 AM REFERRING MD: [facility] AST(SGOT)on 06-11-2025 AST [Catalytic activity/Vol] 50 U/L High <=37 [facility] Comment on above: Performed By: #### L 501.4100, L501.2715 ####[facility] [address] [place], [place], [id number] Alanine Aminotransferas (SGP T)on 06-11-2025 ALT [Catalytic activity/Vol] 65 U/L High <=46 [facility] Comment on above: Performed By: #### L 501.4100, L501.4405 ####[facility] [address] [place], [place], [id number] Laboratory - Chemistry and C hemistry - challengeOrdered By: Coco Shah on 06-11-2025 AST [Catalytic activity/Vol] 50 U/L High <38 [facility] Serum or plasma alanine pham otransferase (ALT) measurementOrdered By: Coco Shah on 06-11-2025 ALT [Catalytic activity/Vol] 65 U/L High <47 [facility] AST(SGOT)on 05-28-2025 AST [Catalytic activity/Vol] 47 U/L High <=37 [facility] Comment on above: Order Comment: FAX R ESULTS TO [phone] Performed By: #### L 501.4405, L501.1105, L100.0100, L101.9900, L501.6710, L501.4100 ####[facility] [address] [place], [place], [id number] Absolute lymphocyte countOrd ered By: Coco Shah on 05-28-2025 Lymphocytes Auto (Unsp spec) [#/Vol] 1.62 10*3/uL 0.83-4.51 [facility] Absolute neutrophil countOrd ered By: Coco Shah on 05-28-2025 Neutrophils (Bld) [#/Vol] 3.2 10*3/uL 2.0-7.7 [facility] Alanine Aminotransferas (SGP T)on 05-28-2025 ALT [Catalytic activity/Vol] 49 U/L High <=46 [facility] Comment on above: Order Comment: FAX R ESULTS TO [phone] Performed By: #### L 501.4405, L501.1105, L100.0100, L101.9900, L501.6710, L501.4100 ####[facility] [address] [place], [place], [id number] Automated lymphocyte count a s percentage of total leukocytesOrdered By: Coco Shah on 05-28-2025 Lymphocytes/100 WBC Auto (Unsp spec) 22.0 % 19-41 [facility] Basophil percentageOrdered B y: Coco Shah on 05-28-2025 Basophils/100 WBC (Bld) 0.8 % 0-1 [facility] CBC W/Diff, Automatedon 05-14 Absolute Lymph 1.62 X10 3/uL Normal 0.83-4.51 [facility] Comment on above: Performed By: #### L 501.4405, L501.1105, L100.0100, L101.9900, L501.6710, L501.4100 ####[facility] [address] [place], [address] Absolute Neut 3.2 X10 3/uL Normal 2.0-7.7 [facility] Comment on above: Performed By: #### L 501.4405, L501.1105, L100.0100, L101.9900, L501.6710, L501.4100 ####[facility] [address] [place], [address] Basophils/100 WBC (Bld) 0.8 % Normal 0-1 [facility] Comment on above: Performed By: #### L 501.4405, L501.1105, L100.0100, L101.9900, L501.6710, L501.4100 ####[facility] [address] [place], [address] Eosinophils/100 WBC (Bld) 22.6 % High 0-5 [facility] Comment on above: Performed By: #### L 501.4405, L501.1105, L100.0100, L101.9900, L501.6710, L501.4100 ####[facility] [address] [place], [address] Erythrocyte distribution width (RBC) [Ratio] 12.4 % Normal 11.6-14.6 [facility] Comment on above: Performed By: #### L 501.4405, L501.1105, L100.0100, L101.9900, L501.6710, L501.4100 ####[facility] [address] [place], [address] Hematocrit (Bld) [Volume fraction] 38.9 % Low 40-54 [facility] Comment on above: Performed By: #### L 501.4405, L501.1105, L100.0100, L101.9900, L501.6710, L501.4100 ####[facility] [address] [place], [address] Hemoglobin (Bld) [Mass/Vol] 13.2 g/dL Normal 13.0-16.5 [facility] Comment on above: Performed By: #### L 501.4405, L501.1105, L100.0100, L101.9900, L501.6710, L501.4100 ####[facility] [address] [place], [address] IG% 0.300 Normal 0.0-0.9 [facility] Comment on above: Result Comment: IG% - Immature Granulocytes (promyelocytes, myelocytes andmetamyelocytes) > 1% indicates that a LEFT SHIFT is Present. Performed By: #### L 501.4405, L501.1105, L100.0100, L101.9900, L501.6710, L501.4100 ####[facility] [address] [place], [address] Lymphocytes/100 WBC (Bld) 22.0 % Normal 19-41 [facility] Comment on above: Performed By: #### L 501.4405, L501.1105, L100.0100, L101.9900, L501.6710, L501.4100 ####[facility] [address] [place], [address] MCH (RBC) [Entitic mass] 31.8 pg Normal 27.0-32.0 [facility] Comment on above: Performed By: #### L 501.4405, L501.1105, L100.0100, L101.9900, L501.6710, L501.4100 ####[facility] [address] [place], [address] MCHC (RBC) [Mass/Vol] 33.9 g/dL Normal 32-36 [facility] Comment on above: Performed By: #### L 501.4405, L501.1105, L100.0100, L101.9900, L501.6710, L501.4100 ####[facility] [address] [place], [address] MCV (RBC) [Entitic vol] 93.7 fL Normal 80-94 [facility] Comment on above: Performed By: #### L 501.4405, L501.1105, L100.0100, L101.9900, L501.6710, L501.4100 ####[facility] [address] [place], [address] Monocytes/100 WBC (Bld) 11.2 % High 0-10 [facility] Comment on above: Performed By: #### L 501.4405, L501.1105, L100.0100, L101.9900, L501.6710, L501.4100 ####[facility] [address] [place], [address] Neutrophils/100 WBC (Bld) 43.1 % Low 47-70 [facility] Comment on above: Performed By: #### L 501.4405, L501.1105, L100.0100, L101.9900, L501.6710, L501.4100 ####[facility] [address] [place], [address] Nucleated RBC (Bld) [#/Vol] 0 10*3/uL Normal 0-5 [facility] Comment on above: Performed By: #### L 501.4405, L501.1105, L100.0100, L101.9900, L501.6710, L501.4100 ####[facility] [address] [place], [address] Platelet mean volume (Bld) [Entitic vol] 10.6 fL Normal 6.2-12.0 [facility] Comment on above: Performed By: #### L 501.4405, L501.1105, L100.0100, L101.9900, L501.6710, L501.4100 ####[facility] [address] [place], [address] Platelets (Bld) [#/Vol] 308 10*3/uL Normal 150-450 [facility] Comment on above: Performed By: #### L 501.4405, L501.1105, L100.0100, L101.9900, L501.6710, L501.4100 ####[facility] [address] [place], [address] RBC (Bld) [#/Vol] 4.15 10*6/uL Low 4.6-6.2 [facility] Comment on above: Performed By: #### L 501.4405, L501.1105, L100.0100, L101.9900, L501.6710, L501.4100 ####[facility] [address] [place], [address] RDW SD 42.8 fl Normal 35.1-43.9 [facility] Comment on above: Performed By: #### L 501.4405, L501.1105, L100.0100, L101.9900, L501.6710, L501.4100 ####[facility] [address] [place], [address] WBC (Bld) [#/Vol] 7.4 10*3/uL Normal 4.4-11.0 [facility] Comment on above: Performed By: #### L 501.4405, L501.1105, L100.0100, L101.9900, L501.6710, L501.4100 ####[facility] [address] [place], [place], [address] CRPon 05-28-2025 C-REACTIVE PROT < 3.00 Normal 0.0-3.0 [facility] Comment on above: Order Comment: FAX R ESULTS TO [phone] Performed By: #### L 501.4405, L501.1105, L100.0100, L101.9900, L501.6710, L501.4100 ####[facility] [address] [place], [address] Eosinophil percentageOrdered By: Coco Shah on 05-28-2025 Eosinophils/100 WBC (Bld) 22.6 % High 0-5 [facility] Erythrocyte Sed Rateon 05-28 SED RATE 24 mm/hr High 0-20 [facility] Comment on above: Performed By: #### L 501.4405, L501.1105, L100.0100, L101.9900, L501.6710, L501.4100 ####[facility] [address] [place], [place], [id number] Erythrocyte distribution wid th ratioOrdered By: Coco Shah on 05-28-2025 Erythrocyte distribution width (RBC) [Ratio] 12.4 % 11.6-14.6 [facility] Erythrocyte distribution wid th standard deviationOrdered By: Coco Shah on 05-28-2025 Erythrocyte distribution width (RBC) [Ratio] 42.8 fl 35.1-43.9 [facility] Erythrocyte sedimentation ra teOrdered By: Coco Shah on 05-28-2025 ESR (Bld) [Velocity] 24 mm/h High 0-20 [facility] Glomerular filtration rate ( GFR) estimation/1.73 sq m using serum, plasma, or whole bOrdered By: Coco Shah on 05-28-2025 GFR/1.73 sq M.predicted among non-blacks MDRD (S/P/Bld) [Vol rate/Area] 46 mL/min/{1.73_m2} Low >60 [facility] Comment on above: mL/min/1.73m2 CKD-EP I Creatinine Equation (2020) Hematocrit Auto (Bld) [Volum e fraction]Ordered By: Coco Shah on 05-28-2025 Hematocrit (Bld) [Volume fraction] 38.9 % Low 40-54 [facility] Hemoglobin measurementOrdere d By: Coco Shah on 05-28-2025 Hemoglobin (Bld) [Mass/Vol] 13.2 g/dL 13.0-16.5 [facility] Immature granulocytes/100 WB C Auto (Bld)Ordered By: Coco Shah on 05-28-2025 Immature granulocytes/100 WBC (Bld) 0.300 % 0.0-0.9 [facility] Comment on above: IG% - Immature Granu locytes (promyelocytes, myelocytes and metamyelocytes) > 1% indicates that a LEFT SHIFT is Present. Laboratory - Chemistry and C hemistry - challengeOrdered By: Coco Shah on 05-28-2025 AST [Catalytic activity/Vol] 47 U/L High <38 [facility] MCV (mean corpuscular volume ) determinationOrdered By: Coco Shah on 05-28-2025 MCV (RBC) [Entitic vol] 93.7 fL 80-94 [facility] Mean corpuscular hemoglobin (MCH) determinationOrdered By: Coco Shah 05-28-2025 MCH (RBC) [Entitic mass] 31.8 pg 27.0-32.0 [facility] Mean corpuscular hemoglobin concentration (MCHC) determinationOrdered By: Coco Shah 05-28-2025 MCHC (RBC) [Mass/Vol] 33.9 g/dL 32-36 [facility] Mean platelet volume determi nationOrdered By: Coco Shah on 05-28-2025 Platelet mean volume (Bld) [Entitic vol] 10.6 fL 6.2-12.0 [facility] Monocyte percentageOrdered B y: Coco Shah on 05-28-2025 Monocytes/100 WBC (Bld) 11.2 % High 0-10 [facility] Neutrophil percentageOrdered By: Coco Shah on 05-28-2025 Neutrophils/100 WBC (Bld) 43.1 % Low 47-70 [facility] Nucleated red blood cell per centageOrdered By: Coco Shah on 05-28-2025 Nucleated RBC/100 WBC (Bld) [Ratio] 0 % 0-5 [facility] Platelet countOrdered By: Filemon isaiah Pablo on 05-28-2025 Platelets (Bld) [#/Vol] 308 10*3/uL 150-450 [facility] RBC Auto (Bld) [#/Vol]Ordere d By: Coco Shah on 05-28-2025 RBC (Bld) [#/Vol] 4.15 10*6/uL Low 4.6-6.2 [facility] Serum Creatinine AND GFRon 0 05-28-2025 Creatinine [Mass/Vol] 1.52 mg/dL High 0.70-1.20 [facility] Comment on above: Order Comment: FAX R ESULTS TO [phone] Performed By: #### L 501.4405, L501.1105, L100.0100, L101.9900, L501.6710, L501.4100 ####[facility] [address] [place], [place], [id number] GFR/1.73 sq M.predicted among non-blacks MDRD (S/P/Bld) [Vol rate/Area] 46 mL/min/{1.73_m2} Low >60 [facility] Comment on above: Order Comment: FAX R ESULTS TO [phone] Result Comment: mL/m in/1.73m2 CKD-EPI Creatinine Equation (2020) Performed By: #### L 501.4405, L501.1105, L100.0100, L101.9900, L501.6710, L501.4100 ####[facility] [address] [place], [place], [id number] Serum creatinine measurement (mass/volume)Ordered By: Coco Shah on 05-28-2025 Creatinine [Mass/Vol] 1.52 mg/dL High 0.70-1.20 [facility] Serum or plasma C reactive p rotein measurement (mass/volume)Ordered By: Coco Shah on 05-28-2025 CRP [Mass/Vol] mg/L 0.0-3.0 [facility] Serum or plasma alanine pham otransferase (ALT) measurementOrdered By: Coco [facility] on 05-28-2025 ALT [Catalytic activity/Vol] 49 U/L High <47 [facility] White blood cell (WBC) count Ordered By: Coco [facility] on 05-28-2025 WBC (Bld) [#/Vol] 7.4 10*3/uL 4.4-11.0 [facility] PSA,Total- Diagnosticon 05-14 PSA, DIAGNOSTIC 0.57 ng/mL Normal 0.00-4.00 [facility] Comment on above: Result Comment: This test was performed using the [employer] tPSAmethod. Measured values of a patient??sample can varydepending on the testing procedure used. PSA valuesdetermined on patient samples by different testingprocedures cannot be used interchangeably. If there is achange in PSA assays while monitoring therapy, sequentialtesting should be performed to confirm baseline values. Performed By: #### L 501.9940 ####[facility] [address] [place], [place], [id number] 0H VITAMIN D LEVELon 25 0H VITAMIN D LEVEL 80.5 NG/ML Normal [facility] Comment on above: Result Comment: DEFICIENT <20 NG/ML INSUFFICIENT 20-<30 NG/ML SUFFICIENT 30-100 NG/ML POTENTIAL TOXICITY >100 NG/ML Performed By: #### V ITD #### Testing performed at [address] [address] CBCon 05-22-2025 ABSOLUTE BAS 0.2 10*3/uL Normal 0.0-0.2 [facility] Comment on above: Performed By: #### A CBC, MG, URIC, RENF, IPTH #### Testing performed at [address] [address] ABSOLUTE EOS 1.4 10*3/uL High 0.0-0.7 [facility] Comment on above: Performed By: #### A CBC, MG, URIC, RENF, IPTH #### Testing performed at [address] [place] [address] ABSOLUTE NEUTROPHIL COUNT 3.4 10*3/uL Normal 1.4-6.5 [facility] Comment on above: Performed By: #### A CBC, MG, URIC, RENF, IPTH #### Testing performed at [address] [place] [address] Basophils/100 WBC (Bld) 2.6 % High 0.0-2.0 [facility] Comment on above: Performed By: #### A CBC, MG, URIC, RENF, IPTH #### Testing performed at [address] [address] DTYPE AUTO DIFF Normal [facility] Comment on above: Performed By: #### A CBC, MG, URIC, RENF, IPTH #### Testing performed at [address] [address] Eosinophils/100 WBC (Bld) 19.1 % High 0.0-11.0 [facility] Comment on above: Performed By: #### A CBC, MG, URIC, RENF, IPTH #### Testing performed at [address] [address] Lymphocytes (Bld) [#/Vol] 1.5 10*3/uL Normal 1.2-3.4 [facility] Comment on above: Performed By: #### A CBC, MG, URIC, RENF, IPTH #### Testing performed at [address] [address] Lymphocytes/100 WBC (Bld) 21.2 % Normal 20.0-55.0 [facility] Comment on above: Performed By: #### A CBC, MG, URIC, RENF, IPTH #### Testing performed at [address] [address] Monocytes (Bld) [#/Vol] 0.7 10*3/uL Normal 0.0-0.7 [facility] Comment on above: Performed By: #### A CBC, MG, URIC, RENF, IPTH #### Testing performed at [address] [address] Monocytes/100 WBC (Bld) 10.0 % Normal 0.0-10.0 [facility] Comment on above: Performed By: #### A CBC, MG, URIC, RENF, IPTH #### Testing performed at [address] [address] Neutrophils/100 WBC (Bld) 47.1 % Normal 37.0-75.0 [facility] Comment on above: Performed By: #### A CBC, MG, URIC, RENF, IPTH #### Testing performed at [address] [address] Erythrocyte distribution width (RBC) [Ratio] 13.7 % Normal 11.5-14.5 [facility] Comment on above: Performed By: #### A CBC, MG, URIC, RENF, IPTH #### Testing performed at [address] [address] Hematocrit (Bld) [Volume fraction] 41.3 % Low 42.0-52.0 [facility] Comment on above: Performed By: #### A CBC, MG, URIC, RENF, IPTH #### Testing performed at [address] [address] Hemoglobin (Bld) [Mass/Vol] 14.2 g/dL Normal 14.0-18.0 [facility] Comment on above: Performed By: #### A CBC, MG, URIC, RENF, IPTH #### Testing performed at [address] [address] MCH (RBC) [Entitic mass] 33.2 pg Normal 26.0-35.0 [facility] Comment on above: Performed By: #### A CBC, MG, URIC, RENF, IPTH #### Testing performed at [address] [address] MCHC (RBC) [Mass/Vol] 34.3 g/dL Normal 27.0-37.0 [facility] Comment on above: Performed By: #### A CBC, MG, URIC, RENF, IPTH #### Testing performed at [address] [address] MCV (RBC) [Entitic vol] 96.6 fL Normal 80.0-100.0 [facility] Comment on above: Performed By: #### A CBC, MG, URIC, RENF, IPTH #### Testing performed at [address] [address] Platelet mean volume (Bld) [Entitic vol] 8.6 fL Normal 7.4-11.0 [facility] Comment on above: Performed By: #### A CBC, MG, URIC, RENF, IPTH #### Testing performed at [address] [address] Platelets (Bld) [#/Vol] 283 10*3/uL Normal 130-400 [facility] Comment on above: Performed By: #### A CBC, MG, URIC, RENF, IPTH #### Testing performed at [address] [address] RBC (Bld) [#/Vol] 4.28 10*6/uL Normal 4.0-6.1 [facility] Comment on above: Performed By: #### A CBC, MG, URIC, RENF, IPTH #### Testing performed at [address] [address] WBC (Bld) [#/Vol] 7.2 10*3/uL Normal 3.6-11.0 [facility] Comment on above: Performed By: #### A CBC, MG, URIC, RENF, IPTH #### Testing performed at [address] [address] MAGNESIUMon 05-22-2025 Magnesium [Mass/Vol] 2.2 mg/dL Normal 1.6-2.3 [facility] Comment on above: Performed By: #### A CBC, MG, URIC, RENF, IPTH #### Testing performed at [address] [address] MALB/CREAT RATIO,URINEon MALB/CREAT RATIO,URINE 94.0 mg MALB/g CREAT High 1.3 -30.0 [facility] Comment on above: Performed By: #### A CBC, MG, URIC, RENF, IPTH #### Testing performed at [facility] [place] [facility] [address] [place] [address] MICROALBUMIN,RANDOM URINE 45.5 mg/L High 0.0-16.7 [facility] Comment on above: Performed By: #### A CBC, MG, URIC, RENF, IPTH #### Testing performed at [address] [address] URINE CREATININE RANDOM 48.4 MG/DL Normal [facility] Comment on above: Result Comment: NO N ORMAL VALUES ESTABLISHED FOR RANDOM SPECIMENS Performed By: #### A CBC, MG, URIC, RENF, IPTH #### Testing performed at [address] [address] PROTEIN CREATININE RATIOon 0 05-22-2025 PROTEIN CREATININE RATIO 0.3 Normal [facility] Comment on above: Result Comment: REFERENCE RANGES <0.2 NORMAL 0.2-3.5 NON-NEPHROTIC >3.5 NEPHROTIC Performed By: #### P CR #### Testing performed at [address] [address] URINE CREATININE RANDOM 48.4 MG/DL Normal [facility] Comment on above: Result Comment: NO N ORMAL VALUES ESTABLISHED FOR RANDOM SPECIMENS Performed By: #### P CR #### Testing performed at [address] [address] URINE TP RANDOM 16 MG/DL High 0-12 [facility] Comment on above: Performed By: #### P CR #### Testing performed at [address] [address] PTH,INTACTon 05-22-2025 PTH,INTACT 34.7 pg/mL Normal 14.5-75.2 [facility] Comment on above: Performed By: #### A CBC, MG, URIC, RENF, IPTH #### Testing performed at [address] [address] RENAL PANEL,FASTINGon 2024 Albumin [Mass/Vol] 4.6 g/dL Normal 3.5-5.0 [facility] Comment on above: Performed By: #### A CBC, MG, URIC, RENF, IPTH #### Testing performed at [address] [address] Calcium [Mass/Vol] 10.4 mg/dL High 8.4-10.2 [facility] Comment on above: Performed By: #### A CBC, MG, URIC, RENF, IPTH #### Testing performed at [address] [address] Chloride [Moles/Vol] 103 mmol/L Normal 98-107 [facility] Comment on above: Result Comment: Sid ott note: Triglyceride levels of 600mg/dL or higher may positively bias chloride results by approximately 2.1 mmol Performed By: #### A CBC, MG, URIC, RENF, IPTH #### Testing performed at [address] [address] CO2 [Moles/Vol] 27 mmol/L Normal 22-30 [facility] Comment on above: Performed By: #### A CBC, MG, URIC, RENF, IPTH #### Testing performed at [address] [address] Creatinine [Mass/Vol] 1.70 mg/dL High 0.70-1.20 [facility] Comment on above: Performed By: #### A CBC, MG, URIC, RENF, IPTH #### Testing performed at [address] [address] GFR Information Average GFR for 70+ years old = 75. Normal [facility] Comment on above: Result Comment: Car Pincher torin Kidney disease, GFR = <60. Kidney failure, GFR = <15. The GFR estimate is not adjusted for extreme body surface area or acute process, nor has it been validated for women or ethnic groups other than and . Performed By: #### A CBC, MG, URIC, RENF, IPTH #### Testing performed at [address] [address] GFR/1.73 sq M.predicted MDRD (S/P/Bld) [Vol rate/Area] 41 mL/min/{1.73_m2} Normal [facility] Comment on above: Performed By: #### A CBC, MG, URIC, RENF, IPTH #### Testing performed at [address] [address] Glucose [Mass/Vol] 154 mg/dL High 70-100 [facility] Comment on above: Result Comment: NORMAL <100 mg/dL PREDIABETES 101-126 mg/dL DIABETES 126 mg/dL or higher Performed By: #### A CBC, MG, URIC, RENF, IPTH #### Testing performed at [address] [address] PHOSPHOROUS 4.2 MG/DL Normal 2.5-4.5 [facility] Comment on above: Performed By: #### A CBC, MG, URIC, RENF, IPTH #### Testing performed at [address] [address] Potassium [Moles/Vol] 4.8 mmol/L Normal 3.5-5.1 [facility] Comment on above: Performed By: #### A CBC, MG, URIC, RENF, IPTH #### Testing performed at [address] [address] Sodium [Moles/Vol] 138 mmol/L Normal 137-145 [facility] Comment on above: Performed By: #### A CBC, MG, URIC, RENF, IPTH #### Testing performed at [address] [address] Urea nitrogen [Mass/Vol] 27 mg/dL High 7-20 [facility] Comment on above: Performed By: #### A CBC, MG, URIC, RENF, IPTH #### Testing performed at [address] [address] URIC ACIDon 05-22-2025 Urate [Mass/Vol] 7.1 mg/dL High 2.4-7.0 [facility] Comment on above: Performed By: #### A CBC, MG, URIC, RENF, IPTH #### Testing performed at [address] [address] URINE MACROSCOPICon 05-22-20 25 Bilirubin Ql (U) Negative Normal NEGATIVE [facility] Comment on above: Performed By: #### U PAYAM, UNAR, UMAC, MCRAT #### Testing performed at [address] [address] Clarity (U) CLEAR Normal CLEAR [facility] Comment on above: Performed By: #### U PAYAM, UNAR, UMAC, MCRAT #### Testing performed at [address] [address] Color (U) YELLOW Normal YELLOW [facility] Comment on above: Performed By: #### U PAYAM, UNAR, UMAC, MCRAT #### Testing performed at [address] [address] Glucose Ql (U) Negative Normal NEGATIVE [facility] Comment on above: Performed By: #### U PAYAM, UNAR, UMAC, MCRAT #### Testing performed at [address] [address] pH (U) 6.0 [pH] Normal 5.0-7.0 [facility] Comment on above: Performed By: #### U PAYAM, UNAR, UMAC, MCRAT #### Testing performed at [address] [address] URINE HEMOGLOBIN Negative Normal NEGATIVE [facility] Comment on above: Performed By: #### U PAYAM, UNAR, UMAC, MCRAT #### Testing performed at [address] [address] URINE KETONE Negative Normal NEGATIVE [facility] Comment on above: Performed By: #### U PAYAM, UNAR, UMAC, MCRAT #### Testing performed at [address] [address] URINE LEUKOTEST Negative Normal NEGATIVE [facility] Comment on above: Performed By: #### U PAYAM, UNAR, UMAC, MCRAT #### Testing performed at [address] [address] URINE NITRATES Negative Normal NEGATIVE [facility] Comment on above: Performed By: #### U PAYAM, UNAR, UMAC, MCRAT #### Testing performed at [address] [address] URINE SPEC GRAVITY 1.015 Normal 1.010-1.025 [facility] Comment on above: Performed By: #### U PAYAM, UNAR, UMAC, MCRAT #### Testing performed at [address] [address] URINE TOTAL PROTEIN Negative Normal NEGATIVE [facility] Comment on above: Performed By: #### U PAYAM, UNAR, UMAC, MCRAT #### Testing performed at [address] [address] Urobilinogen Qn (U) 0.2 {Lisa'U}/dL Normal 0.2-1.0 [facility] Comment on above: Performed By: #### U PAYAM, UNAR, UMAC, MCRAT #### Testing performed at [address] [address] URINE MICROSCOPICon 05-22-20 25 BACTERIA 1+ Abnormal NEGATIVE [facility] Comment on above: Performed By: #### U PAYAM, UNAR, UMAC, MCRAT #### Testing performed at [address] [address] CASTS NONE Normal NONE [facility] Comment on above: Performed By: #### U PAYAM, UNAR, UMAC, MCRAT #### Testing performed at [address] [address] CRYSTAL NONE Normal NONE [facility] Comment on above: Performed By: #### U PAYAM, UNAR, UMAC, MCRAT #### Testing performed at [address] [address] Epithelial cells LM Ql (Urine sed) NONE Normal [facility] Comment on above: Performed By: #### U PAYAM, UNAR, UMAC, MCRAT #### Testing performed at [address] [address] Mucus Ql (Urine sed) Negative Normal NEGATIVE [facility] Comment on above: Performed By: #### U PAYAM, UNAR, UMAC, MCRAT #### Testing performed at [address] [address] URINE COMMENT CULTURE CRITERIA NOT MET, NO CULTURE PERFORMED. Normal [facility] Comment on above: Performed By: #### U PAYAM, UNAR, UMAC, MCRAT #### Testing performed at [address] [address] URINE RBC'S Negative Normal NEGATIVE [facility] Comment on above: Performed By: #### U PAYAM, UNAR, UMAC, MCRAT #### Testing performed at [address] [address] URINE WBC'S Negative Normal NEGATIVE [facility] Comment on above: Performed By: #### U PAYAM, UNAR, UMAC, MCRAT #### Testing performed at [address] [address] URINE SODIUM RANDOMon 2024 Sodium (U) [Moles/Vol] 93 mmol/L High 30-90 [facility] Comment on above: Performed By: #### A CBC, MG, URIC, RENF, IPTH #### Testing performed at [address] [address] Anion gap in Serum or Plasma Ordered By: Latonia Berry on 05-14-2025 Anion gap [Moles/Vol] 11 mmol/L - [facility] BUN/creatinine ratioOrdered By: Latonia Berry on 05-14-2025 Urea nitrogen/Creatinine [Mass ratio] 17.6 mg/mg 09-02 [facility] Basic Metabolic Profile (BMP )on 05-14-2025 BUN/CRE 17.6 RATIO Normal 09-02 [facility] Comment on above: Performed By: #### L 101.9900, L100.0500, L500.2500 ####[facility] [address] [place], [address] Calcium [Mass/Vol] 9.8 mg/dL Normal 7.6-11.0 [facility] Comment on above: Performed By: #### L 101.9900, L100.0500, L500.2500 ####[facility] [address] [place], [address] Chloride [Moles/Vol] 104 mmol/L Normal 98-108 [facility] Comment on above: Performed By: #### L 101.9900, L100.0500, L500.2500 ####[facility] [address] [place], [address] CO2 [Moles/Vol] 23.2 mmol/L Normal 21.0-32.0 [facility] Comment on above: Performed By: #### L 101.9900, L100.0500, L500.2500 ####[facility] [address] [place], [address] Creatinine [Mass/Vol] 1.45 mg/dL High 0.70-1.20 [facility] Comment on above: Performed By: #### L 101.9900, L100.0500, L500.2500 ####[facility] [address] [place], [address] GAP 11 Normal 5-15 [facility] Comment on above: Performed By: #### L 101.9900, L100.0500, L500.2500 ####[facility] [address] [place], [address] GFR/1.73 sq M.predicted among non-blacks MDRD (S/P/Bld) [Vol rate/Area] 48 mL/min/{1.73_m2} Low >60 [facility] Comment on above: Result Comment: mL/m in/1.73m2 CKD-EPI Creatinine Equation (2020) Performed By: #### L 101.9900, L100.0500, L500.2500 ####[facility] [address] [place], [address] Glucose [Mass/Vol] 204 mg/dL High 70-99 [facility] Comment on above: Performed By: #### L 101.9900, L100.0500, L500.2500 ####[facility] [address] [place], [address] Potassium [Moles/Vol] 4.3 mmol/L Normal 3.3-5.1 [facility] Comment on above: Performed By: #### L 101.9900, L100.0500, L500.2500 ####[facility] [address] [place], [address] Sodium [Moles/Vol] 138 mmol/L Normal 133-145 [facility] Comment on above: Performed By: #### L 101.9900, L100.0500, L500.2500 ####[facility] [address] [place], [address] Urea nitrogen [Mass/Vol] 26 mg/dL High 4-19 [facility] Comment on above: Performed By: #### L 101.9900, L100.0500, L500.2500 ####[facility] [address] [place], [address] CBC-Complete Blood Cnt No Di ffon 05-14-2025 Erythrocyte distribution width (RBC) [Ratio] 13.3 % Normal 11.6-14.6 [facility] Comment on above: Performed By: #### L 101.9900, L100.0500, L500.2500 ####[facility] [address] [place], [address] Hematocrit (Bld) [Volume fraction] 35.4 % Low 40-54 [facility] Comment on above: Performed By: #### L 101.9900, L100.0500, L500.2500 ####[facility] [address] [place], [address] Hemoglobin (Bld) [Mass/Vol] 12.3 g/dL Low 13.0-16.5 [facility] Comment on above: Performed By: #### L 101.9900, L100.0500, L500.2500 ####[facility] [address] [place], [address] MCH (RBC) [Entitic mass] 33.9 pg High 27.0-32.0 [facility] Comment on above: Performed By: #### L 101.9900, L100.0500, L500.2500 ####[facility] [address] [place], [address] MCHC (RBC) [Mass/Vol] 34.7 g/dL Normal 32-36 [facility] Comment on above: Performed By: #### L 101.9900, L100.0500, L500.2500 ####[facility] [address] [place], [address] MCV (RBC) [Entitic vol] 97.5 fL High 80-94 [facility] Comment on above: Performed By: #### L 101.9900, L100.0500, L500.2500 ####[facility] [address] [place], [address] Platelet mean volume (Bld) [Entitic vol] 11.6 fL Normal 6.2-12.0 [facility] Comment on above: Performed By: #### L 101.9900, L100.0500, L500.2500 ####[facility] [address] [place], [address] Platelets (Bld) [#/Vol] 208 10*3/uL Normal 150-450 [facility] Comment on above: Performed By: #### L 101.9900, L100.0500, L500.2500 ####[facility] [address] [place], [address] RBC (Bld) [#/Vol] 3.63 10*6/uL Low 4.6-6.2 [facility] Comment on above: Performed By: #### L 101.9900, L100.0500, L500.2500 ####[facility] [address] [place], [address] RDW SD 47.7 fl High 35.1-43.9 [facility] Comment on above: Performed By: #### L 101.9900, L100.0500, L500.2500 ####[facility] [address] [place], [address] WBC (Bld) [#/Vol] 6.5 10*3/uL Normal 4.4-11.0 [facility] Comment on above: Performed By: #### L 101.9900, L100.0500, L500.2500 ####[facility] [address] [place], [place], [address] Carbon dioxide, total [Moles /volume] in Central venous bloodOrdered By: Latonia Berry on 05-14-2025 CO2 [Moles/Vol] 23.2 mmol/L 21.0-32.0 [facility] Chloride assayOrdered By: Cathy Berry on 05-14-2025 Chloride [Moles/Vol] 104 mmol/L 98-108 [facility] Erythrocyte Sed Rateon 05-14 SED RATE 16 mm/hr Normal 0-20 [facility] Comment on above: Performed By: #### L 101.9900, L100.0500, L500.2500 ####[facility] [address] [place], [place], [id number] Erythrocyte distribution wid th ratioOrdered By: Latonia Berry on 05-14-2025 Erythrocyte distribution width (RBC) [Ratio] 13.3 % 11.6-14.6 [facility] Erythrocyte distribution wid th standard deviationOrdered By: Latonia Berry on 05-14-2025 Erythrocyte distribution width (RBC) [Ratio] 47.7 fl High 35.1-43.9 [facility] Erythrocyte sedimentation ra teOrdered By: Latonia Berry on 05-14-2025 ESR (Bld) [Velocity] 16 mm/h 0-20 [facility] Glomerular filtration rate ( GFR) estimation/1.73 sq m using serum, plasma, or whole bOrdered By: Latonia Berry on 05-14-2025 GFR/1.73 sq M.predicted among non-blacks MDRD (S/P/Bld) [Vol rate/Area] 48 mL/min/{1.73_m2} Low >60 [facility] Comment on above: mL/min/1.73m2 CKD-EP I Creatinine Equation (2020) Hematocrit Auto (Bld) [Volum e fraction]Ordered By: Latonia Berry on 05-14-2025 Hematocrit (Bld) [Volume fraction] 35.4 % Low 40-54 [facility] Hemoglobin measurementOrdere d By: Latonia Berry on 05-14-2025 Hemoglobin (Bld) [Mass/Vol] 12.3 g/dL Low 13.0-16.5 [facility] MCV (mean corpuscular volume ) determinationOrdered By: Latonia Berry on 05-14-2025 MCV (RBC) [Entitic vol] 97.5 fL High 80-94 [facility] Mean corpuscular hemoglobin (MCH) determinationOrdered By: Latonia Berry on 05-14-2025 MCH (RBC) [Entitic mass] 33.9 pg High 27.0-32.0 [facility] Mean corpuscular hemoglobin concentration (MCHC) determinationOrdered By: Latonia Berry on 05-14-2025 MCHC (RBC) [Mass/Vol] 34.7 g/dL 32-36 [facility] Mean platelet volume determi nationOrdered By: Latonia Berry on 05-14-2025 Platelet mean volume (Bld) [Entitic vol] 11.6 fL 6.2-12.0 [facility] Platelet countOrdered By: Cathy Berry on 05-14-2025 Platelets (Bld) [#/Vol] 208 10*3/uL 150-450 [facility] Potassium measurement (mass/ volume)Ordered By: Latonia Berry on 05-14-2025 Potassium (Unsp spec) [Mass/Vol] 4.3 mmol/L 3.3-5.1 [facility] RBC Auto (Bld) [#/Vol]Ordere d By: Latonia Berry on 05-14-2025 RBC (Bld) [#/Vol] 3.63 10*6/uL Low 4.6-6.2 [facility] Serum creatinine measurement (mass/volume)Ordered By: Latonia Berry on 05-14-2025 Creatinine [Mass/Vol] 1.45 mg/dL High 0.70-1.20 [facility] Serum glucose measurement (m ass/volume)Ordered By: Latonia Berry on 05-14-2025 Glucose [Mass/Vol] 204 mg/dL High 70-99 [facility] Serum or plasma calcium amadou urement (mass/volume)Ordered By: Latonia Berry on 05-14-2025 Calcium [Mass/Vol] 9.8 mg/dL 7.6-11.0 [facility] Serum or plasma urea nitroge n measurement (mass/volume)Ordered By: Latonia Berry on 05-14-2025 Urea nitrogen [Mass/Vol] 26 mg/dL High 4-19 [facility] Sodium levelOrdered By: Apollo Berry on 05-14-2025 Sodium [Moles/Vol] 138 mmol/L 133-145 [facility] White blood cell (WBC) count Ordered By: Latonia Berry on 05-14-2025 WBC (Bld) [#/Vol] 6.5 10*3/uL 4.4-11.0 [facility] Culture, Blood (WB)on 2024 CUB Blood cultures x2, from two different sites No growth in 5 days. Normal [facility] Comment on above: Performed By: #### M 200.1000 ####[facility] [address] [place], [address] Basic Metabolic Profile (BMP )on 04-20-2025 BUN Normal - [facility] Comment on above: Result Comment: Canc elled via OM: Order cancelled - Patient discharged Performed By: #### L 500.2500, L100.0100 ####[facility] [address] [place], [address] BUN/CRE Normal 10-20 [facility] Comment on above: Result Comment: Canc elled via OM: Order cancelled - Patient discharged Performed By: #### L 500.2500, L100.0100 ####[facility] [address] [place], [address] Calcium Normal 7.6-11.0 [facility] Comment on above: Result Comment: Canc elled via OM: Order cancelled - Patient discharged Performed By: #### L 500.2500, L100.0100 ####[facility] [address] [place], [address] CL Normal 98-108 [facility] Comment on above: Result Comment: Canc elled via OM: Order cancelled - Patient discharged Performed By: #### L 500.2500, L100.0100 ####[facility] [address] [place], [address] CO2 Normal 21.0-32.0 [facility] Comment on above: Result Comment: Canc elled via OM: Order cancelled - Patient discharged Performed By: #### L 500.2500, L100.0100 ####[facility] [address] [place], [address] CREAT,SERUM Normal 0.70-1.20 [facility] Comment on above: Result Comment: Canc elled via OM: Order cancelled - Patient discharged Performed By: #### L 500.2500, L100.0100 ####[facility] [address] [place], [address] eGFR Normal >60 [facility] Comment on above: Result Comment: Canc elled via OM: Order cancelled - Patient discharged Performed By: #### L 500.2500, L100.0100 ####[facility] [address] [place], [address] GAP Normal 5-15 [facility] Comment on above: Result Comment: Canc elled via OM: Order cancelled - Patient discharged Performed By: #### L 500.2500, L100.0100 ####[facility] [address] [place], [address] GLU Normal 70-99 [facility] Comment on above: Result Comment: Canc elled via OM: Order cancelled - Patient discharged Performed By: #### L 500.2500, L100.0100 ####[facility] [address] [place], [address] Potassium Normal 3.3-5.1 [facility] Comment on above: Result Comment: Canc elled via OM: Order cancelled - Patient discharged Performed By: #### L 500.2500, L100.0100 ####[facility] [address] [place], [address] Basic Metabolic Profile (BMP) Normal 133-145 [facility] Comment on above: Result Comment: Canc elled via OM: Order cancelled - Patient discharged Performed By: #### L 500.2500, L100.0100 ####[facility] [address] [place], [address] CBC W/Diff, Automatedon 06-0 7-2024 Absolute Neut Normal 2.0-7.7 [facility] Comment on above: Result Comment: Canc elled via OM: Order cancelled - Patient discharged Performed By: #### L 500.2500, L100.0100 ####[facility] [address] [place], [address] HCT Normal 40-54 [facility] Comment on above: Result Comment: Canc elled via OM: Order cancelled - Patient discharged Performed By: #### L 500.2500, L100.0100 ####[facility] [address] [place], [address] HGB Normal 13.0-16.5 [facility] Comment on above: Result Comment: Canc elled via OM: Order cancelled - Patient discharged Performed By: #### L 500.2500, L100.0100 ####[facility] [address] [place], [address] MCH Normal 27.0-32.0 [facility] Comment on above: Result Comment: Canc elled via OM: Order cancelled - Patient discharged Performed By: #### L 500.2500, L100.0100 ####[facility] [address] [place], [address] MCHC Normal 32-36 [facility] Comment on above: Result Comment: Canc elled via OM: Order cancelled - Patient discharged Performed By: #### L 500.2500, L100.0100 ####[facility] [address] [place], [address] MCV Normal 80-94 [facility] Comment on above: Result Comment: Canc elled via OM: Order cancelled - Patient discharged Performed By: #### L 500.2500, L100.0100 ####[facility] [address] [place], [address] NEUT% Normal 47-70 [facility] Comment on above: Result Comment: Canc elled via OM: Order cancelled - Patient discharged Performed By: #### L 500.2500, L100.0100 ####[facility] [address] [place], [address] PLT Normal 150-450 [facility] Comment on above: Result Comment: Canc elled via OM: Order cancelled - Patient discharged Performed By: #### L 500.2500, L100.0100 ####[facility] [address] [place], [address] RBC Normal 4.6-6.2 [facility] Comment on above: Result Comment: Canc elled via OM: Order cancelled - Patient discharged Performed By: #### L 500.2500, L100.0100 ####[facility] [address] [place], [address] RDW CV Normal 11.6-14.6 [facility] Comment on above: Result Comment: Canc elled via OM: Order cancelled - Patient discharged Performed By: #### L 500.2500, L100.0100 ####[facility] [address] [place], [address] RDW SD Normal 35.1-43.9 [facility] Comment on above: Result Comment: Canc elled via OM: Order cancelled - Patient discharged Performed By: #### L 500.2500, L100.0100 ####[facility] [address] [place], [address] WBC Normal 4.4-11.0 [facility] Comment on above: Result Comment: Canc elled via OM: Order cancelled - Patient discharged Performed By: #### L 500.2500, L100.0100 ####[facility] [address] [place], [address] Basic Metabolic Profile (BMP )on 04-19-2025 BUN Normal 4-19 [facility] Comment on above: Result Comment: Canc elled via OM: Order cancelled - Patient discharged Performed By: #### L 100.0100, L500.2500 ####[facility] [address] [place], [address] BUN/CRE Normal 10-20 [facility] Comment on above: Result Comment: Canc elled via OM: Order cancelled - Patient discharged Performed By: #### L 100.0100, L500.2500 ####[facility] [address] [place], [address] Calcium Normal 7.6-11.0 [facility] Comment on above: Result Comment: Canc elled via OM: Order cancelled - Patient discharged Performed By: #### L 100.0100, L500.2500 ####[facility] [address] [place], [address] CL Normal 98-108 [facility] Comment on above: Result Comment: Canc elled via OM: Order cancelled - Patient discharged Performed By: #### L 100.0100, L500.2500 ####[facility] [address] [place], [address] CO2 Normal 21.0-32.0 [facility] Comment on above: Result Comment: Canc elled via OM: Order cancelled - Patient discharged Performed By: #### L 100.0100, L500.2500 ####[facility] [address] [place], [address] CREAT,SERUM Normal 0.70-1.20 [facility] Comment on above: Result Comment: Canc elled via OM: Order cancelled - Patient discharged Performed By: #### L 100.0100, L500.2500 ####[facility] [address] [place], [address] eGFR Normal >60 [facility] Comment on above: Result Comment: Canc elled via OM: Order cancelled - Patient discharged Performed By: #### L 100.0100, L500.2500 ####[facility] [address] [place], [address] GAP Normal 5-15 [facility] Comment on above: Result Comment: Canc elled via OM: Order cancelled - Patient discharged Performed By: #### L 100.0100, L500.2500 ####[facility] [address] [place], [address] GLU Normal 70-99 [facility] Comment on above: Result Comment: Canc elled via OM: Order cancelled - Patient discharged Performed By: #### L 100.0100, L500.2500 ####[facility] [address] [place], [address] Potassium Normal 3.3-5.1 [facility] Comment on above: Result Comment: Canc elled via OM: Order cancelled - Patient discharged Performed By: #### L 100.0100, L500.2500 ####[facility] [address] [place], [address] Basic Metabolic Profile (BMP) Normal 133-145 [facility] Comment on above: Result Comment: Canc elled via OM: Order cancelled - Patient discharged Performed By: #### L 100.0100, L500.2500 ####[facility] [address] [place], [address] CBC W/Diff, Automatedon 06-0 6-2025 Absolute Neut Normal 2.0-7.7 [facility] Comment on above: Result Comment: Canc elled via OM: Order cancelled - Patient discharged Performed By: #### L 100.0100, L500.2500 ####[facility] [address] [place], [address] HCT Normal 40-54 [facility] Comment on above: Result Comment: Canc elled via OM: Order cancelled - Patient discharged Performed By: #### L 100.0100, L500.2500 ####[facility] [address] [place], [address] HGB Normal 13.0-16.5 [facility] Comment on above: Result Comment: Canc elled via OM: Order cancelled - Patient discharged Performed By: #### L 100.0100, L500.2500 ####[facility] [address] [place], [address] MCH Normal 27.0-32.0 [facility] Comment on above: Result Comment: Canc elled via OM: Order cancelled - Patient discharged Performed By: #### L 100.0100, L500.2500 ####[facility] [address] [place], [address] MCHC Normal 32-36 [facility] Comment on above: Result Comment: Canc elled via OM: Order cancelled - Patient discharged Performed By: #### L 100.0100, L500.2500 ####[facility] [address] [place], [address] MCV Normal 80-94 [facility] Comment on above: Result Comment: Canc elled via OM: Order cancelled - Patient discharged Performed By: #### L 100.0100, L500.2500 ####[facility] [address] [place], [address] NEUT% Normal 47-70 [facility] Comment on above: Result Comment: Canc elled via OM: Order cancelled - Patient discharged Performed By: #### L 100.0100, L500.2500 ####[facility] [address] [place], [address] PLT Normal 150-450 [facility] Comment on above: Result Comment: Canc elled via OM: Order cancelled - Patient discharged Performed By: #### L 100.0100, L500.2500 ####[facility] [address] [place], [address] RBC Normal 4.6-6.2 [facility] Comment on above: Result Comment: Canc elled via OM: Order cancelled - Patient discharged Performed By: #### L 100.0100, L500.2500 ####[facility] [address] [place], [address] RDW CV Normal 11.6-14.6 [facility] Comment on above: Result Comment: Canc elled via OM: Order cancelled - Patient discharged Performed By: #### L 100.0100, L500.2500 ####[facility] [address] [place], [address] RDW SD Normal 35.1-43.9 [facility] Comment on above: Result Comment: Canc elled via OM: Order cancelled - Patient discharged Performed By: #### L 100.0100, L500.2500 ####[facility] [address] [place], [address] WBC Normal 4.4-11.0 [facility] Comment on above: Result Comment: Canc elled via OM: Order cancelled - Patient discharged Performed By: #### L 100.0100, L500.2500 ####[facility] [address] [place], [address] Culture, Anaerobic Any Sourc alec 04-19-2025 CUAN List Antibiotics [place] 48 Hours? merrem, vanco, doxycycline No anaerobic bacteria isolated. Normal [facility] Comment on above: Performed By: #### M 100.3000, M100.4001, M100.2000 ####[facility] [address] [place], [address] Basic Metabolic Profile (BMP )on 04-18-2025 BUN Normal 4-19 [facility] Comment on above: Result Comment: Canc elled via OM: Order cancelled - Patient discharged Performed By: #### L 500.2500, L100.0100 ####[facility] [address] [place], [address] BUN/CRE Normal 10-20 [facility] Comment on above: Result Comment: Canc elled via OM: Order cancelled - Patient discharged Performed By: #### L 500.2500, L100.0100 ####[facility] [address] [place], [address] Calcium Normal 7.6-11.0 [facility] Comment on above: Result Comment: Canc elled via OM: Order cancelled - Patient discharged Performed By: #### L 500.2500, L100.0100 ####[facility] [address] [place], [address] CL Normal 98-108 [facility] Comment on above: Result Comment: Canc elled via OM: Order cancelled - Patient discharged Performed By: #### L 500.2500, L100.0100 ####[facility] [address] [place], [address] CO2 Normal 21.0-32.0 [facility] Comment on above: Result Comment: Canc elled via OM: Order cancelled - Patient discharged Performed By: #### L 500.2500, L100.0100 ####[facility] [address] [place], [address] CREAT,SERUM Normal 0.70-1.20 [facility] Comment on above: Result Comment: Canc elled via OM: Order cancelled - Patient discharged Performed By: #### L 500.2500, L100.0100 ####[facility] [address] [place], [address] eGFR Normal >60 [facility] Comment on above: Result Comment: Canc elled via OM: Order cancelled - Patient discharged Performed By: #### L 500.2500, L100.0100 ####[facility] [address] [place], [address] GAP Normal 5-15 [facility] Comment on above: Result Comment: Canc elled via OM: Order cancelled - Patient discharged Performed By: #### L 500.2500, L100.0100 ####[facility] [address] [place], [address] GLU Normal 70-99 [facility] Comment on above: Result Comment: Canc elled via OM: Order cancelled - Patient discharged Performed By: #### L 500.2500, L100.0100 ####[facility] [address] [place], [address] Potassium Normal 3.3-5.1 [facility] Comment on above: Result Comment: Canc elled via OM: Order cancelled - Patient discharged Performed By: #### L 500.2500, L100.0100 ####[facility] [address] [place], [address] Basic Metabolic Profile (BMP) Normal 133-145 [facility] Comment on above: Result Comment: Canc elled via OM: Order cancelled - Patient discharged Performed By: #### L 500.2500, L100.0100 ####[facility] [address] [place], [address] CBC W/Diff, Automatedon 06-0 5-2024 Absolute Neut Normal 2.0-7.7 [facility] Comment on above: Result Comment: Canc elled via OM: Order cancelled - Patient discharged Performed By: #### L 500.2500, L100.0100 ####[facility] [address] [place], [address] HCT Normal 40-54 [facility] Comment on above: Result Comment: Canc elled via OM: Order cancelled - Patient discharged Performed By: #### L 500.2500, L100.0100 ####[facility] [address] [place], [address] HGB Normal 13.0-16.5 [facility] Comment on above: Result Comment: Canc elled via OM: Order cancelled - Patient discharged Performed By: #### L 500.2500, L100.0100 ####[facility] [address] [place], [address] MCH Normal 27.0-32.0 [facility] Comment on above: Result Comment: Canc elled via OM: Order cancelled - Patient discharged Performed By: #### L 500.2500, L100.0100 ####[facility] [address] [place], [address] MCHC Normal 32-36 [facility] Comment on above: Result Comment: Canc elled via OM: Order cancelled - Patient discharged Performed By: #### L 500.2500, L100.0100 ####[facility] [address] [place], [address] MCV Normal 80-94 [facility] Comment on above: Result Comment: Canc elled via OM: Order cancelled - Patient discharged Performed By: #### L 500.2500, L100.0100 ####[facility] [address] [place], [address] NEUT% Normal 47-70 [facility] Comment on above: Result Comment: Canc elled via OM: Order cancelled - Patient discharged Performed By: #### L 500.2500, L100.0100 ####[facility] [address] [place], [address] PLT Normal 150-450 [facility] Comment on above: Result Comment: Canc elled via OM: Order cancelled - Patient discharged Performed By: #### L 500.2500, L100.0100 ####[facility] [address] [place], [address] RBC Normal 4.6-6.2 [facility] Comment on above: Result Comment: Canc elled via OM: Order cancelled - Patient discharged Performed By: #### L 500.2500, L100.0100 ####[facility] [address] [place], [address] RDW CV Normal 11.6-14.6 [facility] Comment on above: Result Comment: Canc elled via OM: Order cancelled - Patient discharged Performed By: #### L 500.2500, L100.0100 ####[facility] [address] [place], [address] RDW SD Normal 35.1-43.9 [facility] Comment on above: Result Comment: Canc elled via OM: Order cancelled - Patient discharged Performed By: #### L 500.2500, L100.0100 ####[facility] [address] [place], [address] WBC Normal 4.4-11.0 [facility] Comment on above: Result Comment: Canc elled via OM: Order cancelled - Patient discharged Performed By: #### L 500.2500, L100.0100 ####[facility] [address] [place], [address] Wound Cultureon 04-18-2025 WC Normal [facility] Comment on above: Performed By: #### M 100.3000, M100.4001, M100.2000 ####[facility] [address] [place], [address] Absolute lymphocyte countOrd ered By: Coco Pepe on 04-17-2025 Lymphocytes Auto (Unsp spec) [#/Vol] 1.18 10*3/uL 0.83-4.51 [facility] Absolute neutrophil countOrd ered By: Coco Pepe on 04-17-2025 Neutrophils (Bld) [#/Vol] 5.5 10*3/uL 2.0-7.7 [facility] Anion gap in Serum or Plasma Ordered By: Coco Pepe on 04-17-2025 Anion gap [Moles/Vol] 13 mmol/L 03-28 [facility] Automated lymphocyte count a s percentage of total leukocytesOrdered By: Coco Pepe on 04-17-2025 Lymphocytes/100 WBC Auto (Unsp spec) 15.0 % Low [facility] BUN/creatinine ratioOrdered By: Coco Pepe on 04-17-2025 Urea nitrogen/Creatinine [Mass ratio] 16.8 mg/mg 09-02 [facility] Basic Metabolic Profile (BMP )on 04-17-2025 BUN/CRE 16.8 RATIO Normal - [facility] Comment on above: Performed By: #### L 500.2500, L100.0100 ####[facility] [address] [place], [address] Calcium [Mass/Vol] 9.5 mg/dL Normal 7.6-11.0 [facility] Comment on above: Performed By: #### L 500.2500, L100.0100 ####[facility] [address] [place], [address] Chloride [Moles/Vol] 106 mmol/L Normal 98-108 [facility] Comment on above: Performed By: #### L 500.2500, L100.0100 ####[facility] [address] [place], [address] CO2 [Moles/Vol] 21.9 mmol/L Normal 21.0-32.0 [facility] Comment on above: Performed By: #### L 500.2500, L100.0100 ####[facility] [address] [place], [address] Creatinine [Mass/Vol] 1.19 mg/dL Normal 0.70-1.20 [facility] Comment on above: Performed By: #### L 500.2500, L100.0100 ####[facility] [address] [place], [address] ECRCL 53.44 ml/min Normal 50-250 [facility] Comment on above: Performed By: #### L 500.2500, L100.0100 ####[facility] [address] [place], [address] GAP 13 Normal 5-15 [facility] Comment on above: Performed By: #### L 500.2500, L100.0100 ####[facility] [address] [place], [address] GFR/1.73 sq M.predicted among non-blacks MDRD (S/P/Bld) [Vol rate/Area] 61 mL/min/{1.73_m2} Normal >60 [facility] Comment on above: Result Comment: mL/m in/1.73m2 CKD-EPI Creatinine Equation (2020) Performed By: #### L 500.2500, L100.0100 ####[facility] [address] [place], [address] Glucose [Mass/Vol] 171 mg/dL High 70-99 [facility] Comment on above: Performed By: #### L 500.2500, L100.0100 ####[facility] [address] [place], [address] Potassium [Moles/Vol] 4.4 mmol/L Normal 3.3-5.1 [facility] Comment on above: Performed By: #### L 500.2500, L100.0100 ####[facility] [address] [place], [address] Sodium [Moles/Vol] 140 mmol/L Normal 133-145 [facility] Comment on above: Performed By: #### L 500.2500, L100.0100 ####[facility] [address] [place], [address] Urea nitrogen [Mass/Vol] 20 mg/dL High 4-19 [facility] Comment on above: Performed By: #### L 500.2500, L100.0100 ####[facility] [address] [place], [address] Basophil percentageOrdered B y: Coco Pepe on 04-17-2025 Basophils/100 WBC (Bld) 0.5 % 0-1 [facility] Bedside Glucoseon 04-17-2025 FINGERSTICK GLU 174 mg/dL High 74-106 [facility] Comment on above: Result Comment: SEFERINO GEMENT OF PATIENT CARE PER NURSING PROTOCOL Performed By: #### L 501.080 ####[facility] [address] [place], [address] FINGERSTICK GLU 122 mg/dL High 74-106 [facility] Comment on above: Result Comment: SEFERINO GEMENT OF PATIENT CARE PER NURSING PROTOCOL Performed By: #### L 501.080 ####[facility] [address] [place], [address] CBC W/Diff, Automatedon - Absolute Lymph 1.18 X10 3/uL Normal 0.83-4.51 [facility] Comment on above: Performed By: #### L 500.2500, L100.0100 ####[facility] [address] [place], [address] Absolute Neut 5.5 X10 3/uL Normal 2.0-7.7 [facility] Comment on above: Performed By: #### L 500.2500, L100.0100 ####[facility] [address] [place], [address] Basophils/100 WBC (Bld) 0.5 % Normal 0-1 [facility] Comment on above: Performed By: #### L 500.2500, L100.0100 ####[facility] [address] [place], [address] Eosinophils/100 WBC (Bld) 4.8 % Normal 0-5 [facility] Comment on above: Performed By: #### L 500.2500, L100.0100 ####[facility] [address] [place], [address] Erythrocyte distribution width (RBC) [Ratio] 14.6 % Normal 11.6-14.6 [facility] Comment on above: Performed By: #### L 500.2500, L100.0100 ####[facility] [address] [place], [address] Hematocrit (Bld) [Volume fraction] 37.1 % Low 40-54 [facility] Comment on above: Performed By: #### L 500.2500, L100.0100 ####[facility] [address] [place], [address] Hemoglobin (Bld) [Mass/Vol] 12.6 g/dL Low 13.0-16.5 [facility] Comment on above: Performed By: #### L 500.2500, L100.0100 ####[facility] [address] [place], [address] IG% 0.500 Normal 0.0-0.9 [facility] Comment on above: Result Comment: IG% - Immature Granulocytes (promyelocytes, myelocytes andmetamyelocytes) > 1% indicates that a LEFT SHIFT is Present. Performed By: #### L 500.2500, L100.0100 ####[facility] [address] [place], [address] Lymphocytes/100 WBC (Bld) 15.0 % Low 19-41 [facility] Comment on above: Performed By: #### L 500.2500, L100.0100 ####[facility] [address] [place], [address] MCH (RBC) [Entitic mass] 33.9 pg High 27.0-32.0 [facility] Comment on above: Performed By: #### L 500.2500, L100.0100 ####[facility] [address] [place], [address] MCHC (RBC) [Mass/Vol] 34.0 g/dL Normal 32-36 [facility] Comment on above: Performed By: #### L 500.2500, L100.0100 ####[facility] [address] [place], [address] MCV (RBC) [Entitic vol] 99.7 fL High 80-94 [facility] Comment on above: Performed By: #### L 500.2500, L100.0100 ####[facility] [address] [place], [address] Monocytes/100 WBC (Bld) 8.9 % Normal 0-10 [facility] Comment on above: Performed By: #### L 500.2500, L100.0100 ####[facility] [address] [place], [address] Neutrophils/100 WBC (Bld) 70.3 % High 47-70 [facility] Comment on above: Performed By: #### L 500.2500, L100.0100 ####[facility] [address] [place], [address] Nucleated RBC (Bld) [#/Vol] 0 10*3/uL Normal 0-5 [facility] Comment on above: Performed By: #### L 500.2500, L100.0100 ####[facility] [address] [place], [address] Platelet mean volume (Bld) [Entitic vol] 10.4 fL Normal 6.2-12.0 [facility] Comment on above: Performed By: #### L 500.2500, L100.0100 ####[facility] [address] [place], [address] Platelets (Bld) [#/Vol] 207 10*3/uL Normal 150-450 [facility] Comment on above: Performed By: #### L 500.2500, L100.0100 ####[facility] [address] [place], [address] RBC (Bld) [#/Vol] 3.72 10*6/uL Low 4.6-6.2 [facility] Comment on above: Performed By: #### L 500.2500, L100.0100 ####[facility] [address] [place], [address] RDW SD 52.2 fl High 35.1-43.9 [facility] Comment on above: Performed By: #### L 500.2500, L100.0100 ####[facility] [address] [place], [address] WBC (Bld) [#/Vol] 7.9 10*3/uL Normal 4.4-11.0 [facility] Comment on above: Performed By: #### L 500.2500, L100.0100 ####[facility] [address] [place], [address] Carbon dioxide, total [Moles /volume] in Central venous bloodOrdered By: Coco Pepe on 04-17-2025 CO2 [Moles/Vol] 21.9 mmol/L 21.0-32.0 [facility] Chloride assayOrdered By: Filemon Pepe on 04-17-2025 Chloride [Moles/Vol] 106 mmol/L 98-108 [facility] Eosinophil percentageOrdered By: Coco Pepe on 04-17-2025 Eosinophils/100 WBC (Bld) 4.8 % 0-5 [facility] Erythrocyte distribution wid th ratioOrdered By: Coco Pepe on 04-17-2025 Erythrocyte distribution width (RBC) [Ratio] 14.6 % 11.6-14.6 [facility] Erythrocyte distribution wid th standard deviationOrdered By: Coco Pepe on 04-17-2025 Erythrocyte distribution width (RBC) [Ratio] 52.2 fl High 35.1-43.9 [facility] Glomerular filtration rate ( GFR) estimation/1.73 sq m using serum, plasma, or whole bOrdered By: Coco Pepe on 04-17-2025 GFR/1.73 sq M.predicted among non-blacks MDRD (S/P/Bld) [Vol rate/Area] 61 mL/min/{1.73_m2} >60 [facility] Comment on above: mL/min/1.73m2 CKD-EP I Creatinine Equation (2020) [facility] deOrdered By: Coco Pepe on 04-17-2025 Glucose [Mass/Vol] 174 mg/dL High 74-106 [facility] Comment on above: MANAGEMENT OF PATIEN T CARE PER NURSING PROTOCOL Hematocrit Auto (Bld) [Volum e fraction]Ordered By: Coco Pepe on 04-17-2025 Hematocrit (Bld) [Volume fraction] 37.1 % Low 40-54 [facility] Hemoglobin measurementOrdere d By: Coco Pepe on 04-17-2025 Hemoglobin (Bld) [Mass/Vol] 12.6 g/dL Low 13.0-16.5 [facility] Immature granulocytes/100 WB C Auto (Bld)Ordered By: Coco Pepe on 04-17-2025 Immature granulocytes/100 WBC (Bld) 0.500 % 0.0-0.9 [facility] Comment on above: IG% - Immature Granu locytes (promyelocytes, myelocytes and metamyelocytes) > 1% indicates that a LEFT SHIFT is Present. MCV (mean corpuscular volume ) determinationOrdered By: Coco Pepe on 04-17-2025 MCV (RBC) [Entitic vol] 99.7 fL High 80-94 [facility] Mean corpuscular hemoglobin (MCH) determinationOrdered By: Coco Peep on 04-17-2025 MCH (RBC) [Entitic mass] 33.9 pg High 27.0-32.0 [facility] Mean corpuscular hemoglobin concentration (MCHC) determinationOrdered By: Coco Pepe on 04-17-2025 MCHC (RBC) [Mass/Vol] 34.0 g/dL 32-36 [facility] Mean platelet volume determi nationOrdered By: Coco Pepe on 04-17-2025 Platelet mean volume (Bld) [Entitic vol] 10.4 fL 6.2-12.0 [facility] Monocyte percentageOrdered B y: Coco Pepe on 04-17-2025 Monocytes/100 WBC (Bld) 8.9 % 0-10 [facility] Neutrophil percentageOrdered By: Coco Pepe on 04-17-2025 Neutrophils/100 WBC (Bld) 70.3 % High 47-70 [facility] Nucleated red blood cell per centageOrdered By: Coco Pepe on 04-17-2025 Nucleated RBC/100 WBC (Bld) [Ratio] 0 % 0-5 [facility] Platelet countOrdered By: Filemon Pepe on 04-17-2025 Platelets (Bld) [#/Vol] 207 10*3/uL 150-450 [facility] Potassium measurement (mass/ volume)Ordered By: Coco Pepe on 04-17-2025 Potassium (Unsp spec) [Mass/Vol] 4.4 mmol/L 3.3-5.1 [facility] RBC Auto (Bld) [#/Vol]Ordere d By: Coco Pepe on 04-17-2025 RBC (Bld) [#/Vol] 3.72 10*6/uL Low 4.6-6.2 [facility] Serum creatinine measurement (mass/volume)Ordered By: Coco Pepe on 04-17-2025 Creatinine [Mass/Vol] 1.19 mg/dL 0.70-1.20 [facility] Serum glucose measurement (m ass/volume)Ordered By: Coco Pepe on 04-17-2025 Glucose [Mass/Vol] 171 mg/dL High 70-99 [facility] Serum or plasma calcium amadou urement (mass/volume)Ordered By: Coco Pepe on 04-17-2025 Calcium [Mass/Vol] 9.5 mg/dL 7.6-11.0 [facility] Serum or plasma urea nitroge n measurement (mass/volume)Ordered By: Coco Pepe on 04-17-2025 Urea nitrogen [Mass/Vol] 20 mg/dL High 4-19 [facility] Sodium levelOrdered By: Kit Pepe on 04-17-2025 Sodium [Moles/Vol] 140 mmol/L 133-145 [facility] Trough vancomycin levelOrder ed By: Latonia Berry on 04-17-2025 Vancomycin trough [Mass/Vol] 12.9 ug/mL 5.0-15.0 [facility] Comment on above: Recommended goal tro ugh ranges are generally 10-15 mcg/ml for less severe/complicated infections such as cellulitis or UTI and 15-20 mcg/ml for more severe/complicated infections such as bacteremia/sepsis, osteomyelitis, pneumonia or meningitis. Goal trough ranges should take into account indication, patient-specific factors and organism PAYAM.VANCOMYCIN STANDARED DRUG THERAPY TROUGH LEVEL: 5.0 - 15.0 mg/L VANCOMYCIN HIGH INTENSITY THERAPY TROUGH LEVEL: 15.0 - 20.0 mg/L High Intensity therapy recommended for serious lifethreatening infections include:- Uwcflcrtau-Ghgmwsydjkwq-Jiinxougi (Ventilator/Healtcare Associated)-Sepsis PLEASE CONTACT PHARMACY SERVICES (#9354) FOR INTERPRETATIONOF RESULTS. Vancomycin, Trough Levelon 0 04-17-2025 VANCO, TROUGH 12.9 ug/mL Normal 5.0-15.0 [facility] Comment on above: Order Comment: Comme nts: DRAW 30 MIN PRIOR TO [id number] Result Comment: Harpal mmended goal trough ranges are generally 10-15 mcg/mlfor less severe/complicated infections such as cellulitisor UTI and 15-20 mcg/ml for more severe/complicatedinfections such as bacteremia/sepsis, osteomyelitis,pneumonia or meningitis. Goal trough ranges should takeinto account indication, patient-specific factors andorganism PAYAM.VANCOMYCIN STANDARED DRUG THERAPY TROUGH LEVEL: 5.0 - 15.0 mg/LVANCOMYCIN HIGH INTENSITY THERAPY TROUGH LEVEL: 15.0 - 20.0 mg/LHigh Intensity therapy recommended for serious lifethreatening infections include:- Pmfbeyxhkb-Cfwlorpygypu-Gpjubloon (Ventilator/Healtcare Associated)-SepsisPLEASE CONTACT PHARMACY SERVICES (#1604) FOR INTERPRETATIONOF RESULTS. Performed By: #### L 501.8820 ####[facility] [address] [place], [address] White blood cell (WBC) count Ordered By: Coco Pepe on 04-17-2025 WBC (Bld) [#/Vol] 7.9 10*3/uL 4.4-11.0 [facility] Basic Metabolic Profile (BMP )on 04-16-2025 BUN/CRE 18.4 RATIO Normal 10-20 [facility] Comment on above: Performed By: #### L 100.0100, L500.2500, L501.2300, L501.5200, L501.9985 ####[facility] [address] [place], [address] Calcium [Mass/Vol] 9.1 mg/dL Normal 7.6-11.0 [facility] Comment on above: Performed By: #### L 100.0100, L500.2500, L501.2300, L501.5200, L501.9985 ####[facility] [address] [place], [address] Chloride [Moles/Vol] 107 mmol/L Normal 98-108 [facility] Comment on above: Performed By: #### L 100.0100, L500.2500, L501.2300, L501.5200, L501.9985 ####[facility] [address] [place], [address] CO2 [Moles/Vol] 23.9 mmol/L Normal 21.0-32.0 [facility] Comment on above: Performed By: #### L 100.0100, L500.2500, L501.2300, L501.5200, L501.9985 ####[facility] [address] [place], [address] Creatinine [Mass/Vol] 1.28 mg/dL High 0.70-1.20 [facility] Comment on above: Performed By: #### L 100.0100, L500.2500, L501.2300, L501.5200, L501.9985 ####[facility] [address] [place], [address] ECRCL 49.68 ml/min Low 50-250 [facility] Comment on above: Performed By: #### L 100.0100, L500.2500, L501.2300, L501.5200, L501.9985 ####[facility] [address] [place], [address] GAP 9 Normal 5-15 [facility] Comment on above: Performed By: #### L 100.0100, L500.2500, L501.2300, L501.5200, L501.9985 ####[facility] [facility] [address] [place], [address] GFR/1.73 sq M.predicted among non-blacks MDRD (S/P/Bld) [Vol rate/Area] 56 mL/min/{1.73_m2} Low >60 [facility] Comment on above: Result Comment: mL/m in/1.73m2 CKD-EPI Creatinine Equation (2020) Performed By: #### L 100.0100, L500.2500, L501.2300, L501.5200, L501.9985 ####[facility] [address] [place], [address] Glucose [Mass/Vol] 183 mg/dL High 70-99 [facility] Comment on above: Performed By: #### L 100.0100, L500.2500, L501.2300, L501.5200, L501.9985 ####[facility] [address] [place], [address] Potassium [Moles/Vol] 3.7 mmol/L Normal 3.3-5.1 [facility] Comment on above: Performed By: #### L 100.0100, L500.2500, L501.2300, L501.5200, L501.9985 ####[facility] [address] [place], [address] Sodium [Moles/Vol] 140 mmol/L Normal 133-145 [facility] Comment on above: Performed By: #### L 100.0100, L500.2500, L501.2300, L501.5200, L501.9985 ####[facility] [address] [place], [address] Urea nitrogen [Mass/Vol] 24 mg/dL High 4-19 [facility] Comment on above: Performed By: #### L 100.0100, L500.2500, L501.2300, L501.5200, L501.9985 ####[facility] [address] [place], [address] Bedside Glucoseon 04-16-2025 FINGERSTICK GLU 161 mg/dL High 74-106 [facility] Comment on above: Result Comment: SEFERINO GEMENT OF PATIENT CARE PER NURSING PROTOCOL Performed By: #### L 501.080 ####[facility] [address] [place], [address] FINGERSTICK GLU 181 mg/dL High 74-106 [facility] Comment on above: Result Comment: SEFERINO GEMENT OF PATIENT CARE PER NURSING PROTOCOL Performed By: #### L 501.080 ####[facility] [address] [place], [address] FINGERSTICK GLU 166 mg/dL High 74-106 [facility] Comment on above: Result Comment: SEFERINO GEMENT OF PATIENT CARE PER NURSING PROTOCOL Performed By: #### L 501.080 ####[facility] [address] [place], [address] FINGERSTICK GLU 159 mg/dL High 74-106 [facility] Comment on above: Result Comment: SEFERINO COLON OF PATIENT CARE PER NURSING PROTOCOL Performed By: #### L 501.080 ####[facility] [address] [place], [address] CBC W/Diff, Automatedon 06-0 3-2024 Absolute Lymph 1.34 X10 3/uL Normal 0.83-4.51 [facility] Comment on above: Performed By: #### L 100.0100, L500.2500, L501.2300, L501.5200, L501.9985 ####[facility] [address] [place], [address] Absolute Neut 2.5 X10 3/uL Normal 2.0-7.7 [facility] Comment on above: Performed By: #### L 100.0100, L500.2500, L501.2300, L501.5200, L501.9985 ####[facility] [address] [place], [address] Basophils/100 WBC (Bld) 0.9 % Normal 0-1 [facility] Comment on above: Performed By: #### L 100.0100, L500.2500, L501.2300, L501.5200, L501.9985 ####[facility] [address] [place], [address] Eosinophils/100 WBC (Bld) 5.6 % High 0-5 [facility] Comment on above: Performed By: #### L 100.0100, L500.2500, L501.2300, L501.5200, L501.9985 ####[facility] [address] [place], [address] Erythrocyte distribution width (RBC) [Ratio] 14.5 % Normal 11.6-14.6 [facility] Comment on above: Performed By: #### L 100.0100, L500.2500, L501.2300, L501.5200, L501.9985 ####[facility] [address] [place], [address] Hematocrit (Bld) [Volume fraction] 29.2 % Low 40-54 [facility] Comment on above: Performed By: #### L 100.0100, L500.2500, L501.2300, L501.5200, L501.9985 ####[facility] [address] [place], [address] Hemoglobin (Bld) [Mass/Vol] 10.2 g/dL Low 13.0-16.5 [facility] Comment on above: Performed By: #### L 100.0100, L500.2500, L501.2300, L501.5200, L501.9985 ####[facility] [address] [place], [address] IG% 0.200 Normal 0.0-0.9 [facility] Comment on above: Result Comment: IG% - Immature Granulocytes (promyelocytes, myelocytes andmetamyelocytes) > 1% indicates that a LEFT SHIFT is Present. Performed By: #### L 100.0100, L500.2500, L501.2300, L501.5200, L501.9985 ####[facility] [address] [place], [address] Lymphocytes/100 WBC (Bld) 28.7 % Normal 19-41 [facility] Comment on above: Performed By: #### L 100.0100, L500.2500, L501.2300, L501.5200, L501.9985 ####[facility] [address] [place], [address] MCH (RBC) [Entitic mass] 35.2 pg High 27.0-32.0 [facility] Comment on above: Performed By: #### L 100.0100, L500.2500, L501.2300, L501.5200, L501.9985 ####[facility] [address] [place], [address] MCHC (RBC) [Mass/Vol] 34.9 g/dL Normal 32-36 [facility] Comment on above: Performed By: #### L 100.0100, L500.2500, L501.2300, L501.5200, L501.9985 ####[facility] [address] [place], [address] MCV (RBC) [Entitic vol] 100.7 fL High 80-94 [facility] Comment on above: Performed By: #### L 100.0100, L500.2500, L501.2300, L501.5200, L501.9985 ####[facility] [address] [place], [address] Monocytes/100 WBC (Bld) 12.2 % High 0-10 [facility] Comment on above: Performed By: #### L 100.0100, L500.2500, L501.2300, L501.5200, L501.9985 ####[facility] [address] [place], [address] Neutrophils/100 WBC (Bld) 52.4 % Normal 47-70 [facility] Comment on above: Performed By: #### L 100.0100, L500.2500, L501.2300, L501.5200, L501.9985 ####[facility] [address] [place], [address] Nucleated RBC (Bld) [#/Vol] 0 10*3/uL Normal 0-5 [facility] Comment on above: Performed By: #### L 100.0100, L500.2500, L501.2300, L501.5200, L501.9985 ####[facility] [address] [place], [address] Platelet mean volume (Bld) [Entitic vol] 10.8 fL Normal 6.2-12.0 [facility] Comment on above: Performed By: #### L 100.0100, L500.2500, L501.2300, L501.5200, L501.9985 ####[facility] [address] [place], [address] Platelets (Bld) [#/Vol] 174 10*3/uL Normal 150-450 [facility] Comment on above: Performed By: #### L 100.0100, L500.2500, L501.2300, L501.5200, L501.9985 ####[facility] [address] [place], [address] RBC (Bld) [#/Vol] 2.90 10*6/uL Low 4.6-6.2 [facility] Comment on above: Performed By: #### L 100.0100, L500.2500, L501.2300, L501.5200, L501.9985 ####[facility] [address] [place], [address] RDW SD 52.0 fl High 35.1-43.9 [facility] Comment on above: Performed By: #### L 100.0100, L500.2500, L501.2300, L501.5200, L501.9985 ####[facility] [address] [place], [address] WBC (Bld) [#/Vol] 4.7 10*3/uL Normal 4.4-11.0 [facility] Comment on above: Performed By: #### L 100.0100, L500.2500, L501.2300, L501.5200, L501.9985 ####[facility] [address] [place], [address] Consultation - Infectious Dx on 04-16-2025 Consultation - Infectious Dx Normal [facility] Gram Stainon 04-16-2025 GS List Antibiotics Las t 48 Hours? merrem, vanco, doxycycline Gram Stain Rare Gram negative rods Rare Gram positive cocci No cells seen Normal [facility] Comment on above: Performed By: #### M 100.3000, M100.4001, M100.2000 ####[facility] [address], [address] Hemoglobin A1con 04-16-2025 HbA1c (Bld) [Mass fraction] 7.0 % High <=5.6 [facility] Comment on above: Result Comment: Norm al < 5.7 % Prediabetic 5.7 - 6.4 % Diabetic >or= 6.5 % Please note range changes. Performed By: #### L 100.0100, L500.2500, L501.2300, L501.5200, L501.9985 ####[facility] [address] [place], [place], [id number] Hemoglobin A1c percentageOrd ered By: Coco Pepe on 04-16-2025 HbA1c (Bld) [Mass fraction] 7.0 % High <5.7 [facility] Comment on above: Normal < 5.7 % Predi abetic 5.7 - 6.4 % Diabetic >or= 6.5 % Please note range changes. Magnesiumon 04-16-2025 Magnesium [Mass/Vol] 1.9 mg/dL Normal 1.5-2.2 [facility] Comment on above: Performed By: #### L 100.0100, L500.2500, L501.2300, L501.5200, L501.9985 ####[facility] [address] [place], [place], [id number] Magnesium measurement (mass/ volume)Ordered By: Coco Pepe on 04-16-2025 Magnesium (Unsp spec) [Mass/Vol] 1.9 mg/dL 1.5-2.2 [facility] Phosphoruson 04-16-2025 Phosphate [Mass/Vol] 3.0 mg/dL Normal 2.7-4.5 [facility] Comment on above: Performed By: #### L 100.0100, L500.2500, L501.2300, L501.5200, L501.9985 ####[facility] [address] [place], [address] Absolute lymphocyte countOrd ered By: Edgar Gudino on 04-15-2025 Lymphocytes Auto (Unsp spec) [#/Vol] 1.28 10*3/uL 0.83-4.51 [facility] Absolute neutrophil countOrd ered By: Edgar trinoKerri on 04-15-2025 Neutrophils (Bld) [#/Vol] 3.5 10*3/uL 2.0-7.7 [facility] Anaerobic cultureOrdered By: Coco Pepe on 04-15-2025 Bacteria identified Anaer cx Nom (Unsp spec) No anaerobic bacteria isolated. [facility] Anion gap in Serum or Plasma Ordered By: Edgar Jaciel on 04-15-2025 Anion gap [Moles/Vol] 12 mmol/L 5-15 [facility] Automated lymphocyte count a s percentage of total leukocytesOrdered By: Edgarcony Gudino on 04-15-2025 Lymphocytes/100 WBC Auto (Unsp spec) 21.9 % 19-41 [facility] BUN/creatinine ratioOrdered By: Edgar JasperKerri on 04-15-2025 Urea nitrogen/Creatinine [Mass ratio] 19.1 mg/mg 10-20 [facility] Basic Metabolic Profile (BMP )on 04-15-2025 BUN/CRE 19.1 RATIO Normal 10-20 [facility] Comment on above: Performed By: #### L 500.2500, L100.0100, L503.6005, L501.6710, L101.9900 ####[facility] [address] [place], [address] Calcium [Mass/Vol] 9.4 mg/dL Normal 7.6-11.0 [facility] Comment on above: Performed By: #### L 500.2500, L100.0100, L503.6005, L501.6710, L101.9900 ####[facility] [address] [place], [address] Chloride [Moles/Vol] 103 mmol/L Normal 98-108 [facility] Comment on above: Performed By: #### L 500.2500, L100.0100, L503.6005, L501.6710, L101.9900 ####[facility] [address] [place], [address] CO2 [Moles/Vol] 24.3 mmol/L Normal 21.0-32.0 [facility] Comment on above: Performed By: #### L 500.2500, L100.0100, L503.6005, L501.6710, L101.9900 ####[facility] [address] [place], [address] Creatinine [Mass/Vol] 1.38 mg/dL High 0.70-1.20 [facility] Comment on above: Performed By: #### L 500.2500, L100.0100, L503.6005, L501.6710, L101.9900 ####[facility] [address] [place], [address] ECRCL 46.08 ml/min Low 50-250 [facility] Comment on above: Performed By: #### L 500.2500, L100.0100, L503.6005, L501.6710, L101.9900 ####[facility] [address] [place], [address] GAP 12 Normal 5-15 [facility] Comment on above: Performed By: #### L 500.2500, L100.0100, L503.6005, L501.6710, L101.9900 ####[facility] [address] [place], [address] GFR/1.73 sq M.predicted among non-blacks MDRD (S/P/Bld) [Vol rate/Area] 51 mL/min/{1.73_m2} Low >60 [facility] Comment on above: Result Comment: mL/m in/1.73m2 CKD-EPI Creatinine Equation (2020) Performed By: #### L 500.2500, L100.0100, L503.6005, L501.6710, L101.9900 ####[facility] [address] [place], [address] Glucose [Mass/Vol] 183 mg/dL High 70-99 [facility] Comment on above: Performed By: #### L 500.2500, L100.0100, L503.6005, L501.6710, L101.9900 ####[facility] [address] [place], [address] Potassium [Moles/Vol] 3.9 mmol/L Normal 3.3-5.1 [facility] Comment on above: Performed By: #### L 500.2500, L100.0100, L503.6005, L501.6710, L101.9900 ####[facility] [address] [place], [address] Sodium [Moles/Vol] 139 mmol/L Normal 133-145 [facility] Comment on above: Performed By: #### L 500.2500, L100.0100, L503.6005, L501.6710, L101.9900 ####[facility] [address] [place], [address] Urea nitrogen [Mass/Vol] 26 mg/dL High 4-19 [facility] Comment on above: Performed By: #### L 500.2500, L100.0100, L503.6005, L501.6710, L101.9900 ####[facility] [address] [place], [address] Basophil percentageOrdered B y: Edgar Shahab on 04-15-2025 Basophils/100 WBC (Bld) 0.9 % 0-1 [facility] Bedside Glucoseon 04-15-2025 FINGERSTICK GLU 117 mg/dL High 74-106 [facility] Comment on above: Result Comment: SEFERINO COLON OF PATIENT CARE PER NURSING PROTOCOL Performed By: #### L 501.080 ####[facility] [address] [place], [address] Blood cultureOrdered By: Pj cony Gudino on 04-15-2025 Bacteria identified Cx Nom (Bld) No growth in 5 days. [facility] Bacteria identified Cx Nom (Bld) No growth in 5 days. [facility] CBC W/Diff, Automatedon Absolute Lymph 1.28 X10 3/uL Normal 0.83-4.51 [facility] Comment on above: Performed By: #### L 500.2500, L100.0100, L503.6005, L501.6710, L101.9900 ####[facility] [address] [place], [address] Absolute Neut 3.5 X10 3/uL Normal 2.0-7.7 [facility] Comment on above: Performed By: #### L 500.2500, L100.0100, L503.6005, L501.6710, L101.9900 ####[facility] [address] [place], [address] Basophils/100 WBC (Bld) 0.9 % Normal 0-1 [facility] Comment on above: Performed By: #### L 500.2500, L100.0100, L503.6005, L501.6710, L101.9900 ####[facility] [address] [place], [address] Eosinophils/100 WBC (Bld) 5.6 % High 0-5 [facility] Comment on above: Performed By: #### L 500.2500, L100.0100, L503.6005, L501.6710, L101.9900 ####[facility] [address] [place], [address] Erythrocyte distribution width (RBC) [Ratio] 14.3 % Normal 11.6-14.6 [facility] Comment on above: Performed By: #### L 500.2500, L100.0100, L503.6005, L501.6710, L101.9900 ####[facility] [address] [place], [address] Hematocrit (Bld) [Volume fraction] 32.5 % Low 40-54 [facility] Comment on above: Performed By: #### L 500.2500, L100.0100, L503.6005, L501.6710, L101.9900 ####[facility] [address] [place], [address] Hemoglobin (Bld) [Mass/Vol] 11.4 g/dL Low 13.0-16.5 [facility] Comment on above: Performed By: #### L 500.2500, L100.0100, L503.6005, L501.6710, L101.9900 ####[facility] [address] [place], [address] IG% 0.300 Normal 0.0-0.9 [facility] Comment on above: Result Comment: IG% - Immature Granulocytes (promyelocytes, myelocytes andmetamyelocytes) > 1% indicates that a LEFT SHIFT is Present. Performed By: #### L 500.2500, L100.0100, L503.6005, L501.6710, L101.9900 ####[facility] [address] [place], [address] Lymphocytes/100 WBC (Bld) 21.9 % Normal 19-41 [facility] Comment on above: Performed By: #### L 500.2500, L100.0100, L503.6005, L501.6710, L101.9900 ####[facility] [address] [place], [address] MCH (RBC) [Entitic mass] 35.4 pg High 27.0-32.0 [facility] Comment on above: Performed By: #### L 500.2500, L100.0100, L503.6005, L501.6710, L101.9900 ####[facility] [address] [place], [address] MCHC (RBC) [Mass/Vol] 35.1 g/dL Normal 32-36 [facility] Comment on above: Performed By: #### L 500.2500, L100.0100, L503.6005, L501.6710, L101.9900 ####[facility] [address] [place], [address] MCV (RBC) [Entitic vol] 100.9 fL High 80-94 [facility] Comment on above: Performed By: #### L 500.2500, L100.0100, L503.6005, L501.6710, L101.9900 ####[facility] [address] [place], [address] Monocytes/100 WBC (Bld) 12.1 % High 0-10 [facility] Comment on above: Performed By: #### L 500.2500, L100.0100, L503.6005, L501.6710, L101.9900 ####[facility] [address] [place], [address] Neutrophils/100 WBC (Bld) 59.2 % Normal 47-70 [facility] Comment on above: Performed By: #### L 500.2500, L100.0100, L503.6005, L501.6710, L101.9900 ####[facility] [address] [place], [address] Nucleated RBC (Bld) [#/Vol] 0 10*3/uL Normal 0-5 [facility] Comment on above: Performed By: #### L 500.2500, L100.0100, L503.6005, L501.6710, L101.9900 ####[facility] [address] [place], [address] Platelet mean volume (Bld) [Entitic vol] 10.8 fL Normal 6.2-12.0 [facility] Comment on above: Performed By: #### L 500.2500, L100.0100, L503.6005, L501.6710, L101.9900 ####[facility] [address] [place], [address] Platelets (Bld) [#/Vol] 200 10*3/uL Normal 150-450 [facility] Comment on above: Performed By: #### L 500.2500, L100.0100, L503.6005, L501.6710, L101.9900 ####[facility] [address] [place], [address] RBC (Bld) [#/Vol] 3.22 10*6/uL Low 4.6-6.2 [facility] Comment on above: Performed By: #### L 500.2500, L100.0100, L503.6005, L501.6710, L101.9900 ####[facility] [address] [place], [address] RDW SD 51.8 fl High 35.1-43.9 [facility] Comment on above: Performed By: #### L 500.2500, L100.0100, L503.6005, L501.6710, L101.9900 ####[facility] [address] [place], [address] WBC (Bld) [#/Vol] 5.9 10*3/uL Normal 4.4-11.0 [facility] Comment on above: Performed By: #### L 500.2500, L100.0100, L503.6005, L501.6710, L101.9900 ####[facility] [address] [place], [address] CRPon 04-15-2025 C-REACTIVE PROT 30.60 mg/L High 0.0-3.0 [facility] Comment on above: Performed By: #### L 501.6710, L101.9900 ####[facility] [address] [place], [address] C-REACTIVE PROT 30.20 mg/L High 0.0-3.0 [facility] Comment on above: Performed By: #### L 500.2500, L100.0100, L503.6005, L501.6710, L101.9900 ####[facility] [address] [place], [address] Carbon dioxide, total [Moles /volume] in Central venous bloodOrdered By: Edgar Gudino on 04-15-2025 CO2 [Moles/Vol] 24.3 mmol/L 21.0-32.0 [facility] Chloride assayOrdered By: Candelario Gudino on 04-15-2025 Chloride [Moles/Vol] 103 mmol/L 98-108 [facility] Emergency Department Summary on 04-15-2025 Emergency Department Summary Normal [facility] Eosinophil percentageOrdered By: Edgar Gudino on 04-15-2025 Eosinophils/100 WBC (Bld) 5.6 % High 0-5 [facility] Erythrocyte Sed Rateon 04-15 SED RATE 10 mm/hr Normal 0-20 [facility] Comment on above: Performed By: #### L 501.6710, L101.9900 ####[facility] [address] [place], [address] SED RATE 21 mm/hr High 0-20 [facility] Comment on above: Performed By: #### L 500.2500, L100.0100, L503.6005, L501.6710, L101.9900 ####[facility] [address] [place], [address] Erythrocyte distribution wid th ratioOrdered By: Edgar Gudino on 04-15-2025 Erythrocyte distribution width (RBC) [Ratio] 14.3 % 11.6-14.6 [facility] Erythrocyte distribution wid th standard deviationOrdered By: Edgar Manning on 04-15-2025 Erythrocyte distribution width (RBC) [Ratio] 51.8 fl High 35.1-43.9 [facility] Erythrocyte sedimentation ra teOrdered By: Coco Pepe on 04-15-2025 ESR (Bld) [Velocity] 10 mm/h 0-20 [facility] Erythrocyte sedimentation ra teOrdered By: Edgar Gudino on 04-15-2025 ESR (Bld) [Velocity] 21 mm/h High 0-20 [facility] Foot min 3 Viewson 5 Foot min 3 Views Normal [facility] Glomerular filtration rate ( GFR) estimation/1.73 sq m using serum, plasma, or whole bOrdered By: Edgar Gudino on 04-15-2025 GFR/1.73 sq M.predicted among non-blacks MDRD (S/P/Bld) [Vol rate/Area] 51 mL/min/{1.73_m2} Low >60 [facility] Comment on above: mL/min/1.73m2 CKD-EP I Creatinine Equation (2020) Gram stainOrdered By: Coco Pepe on 04-15-2025 Microscopic observation Gram stain Nom (Unsp spec) [facility] H AND P Exam - Hospitaliston 04-15-2025 H&P Exam - Hospitalist Normal [facility] Hematocrit Auto (Bld) [Volum e fraction]Ordered By: Edgar Gudino on 04-15-2025 Hematocrit (Bld) [Volume fraction] 32.5 % Low 40-54 [facility] Hemoglobin measurementOrdere d By: Edgar Gudino on 04-15-2025 Hemoglobin (Bld) [Mass/Vol] 11.4 g/dL Low 13.0-16.5 [facility] Immature granulocytes/100 WB C Auto (Bld)Ordered By: Edgar Gudino on 04-15-2025 Immature granulocytes/100 WBC (Bld) 0.300 % 0.0-0.9 [facility] Comment on above: IG% - Immature Granu locytes (promyelocytes, myelocytes and metamyelocytes) > 1% indicates that a LEFT SHIFT is Present. Lactic Acidon 04-15-2025 Lactate [Moles/Vol] 1.6 mmol/L Normal 0.0-2.0 [facility] Comment on above: Order Comment: Y Performed By: #### L 500.2500, L100.0100, L503.6005, L501.6710, L101.9900 ####[facility] [address] [place], [address] Lactic acid measurementOrder ed By: Edgar Gudino on 04-15-2025 Lactate [Moles/Vol] 1.6 mmol/L 0.0-2.0 [facility] Lower Ext No Joint W/WO Cont on 04-15-2025 Lower Ext No Joint W/WO Cont Normal [facility] [id number] 04-15-2025 M8200.1075 Normal [facility] Comment on above: Performed By: #### M 8200.1075 ####[facility] [address] [place], [address] MCV (mean corpuscular volume ) determinationOrdered By: Edgar Gudino on 04-15-2025 MCV (RBC) [Entitic vol] 100.9 fL High 80-94 [facility] Mean corpuscular hemoglobin (MCH) determinationOrdered By: Edgar Gudino on 04-15-2025 MCH (RBC) [Entitic mass] 35.4 pg High 27.0-32.0 [facility] Mean corpuscular hemoglobin concentration (MCHC) determinationOrdered By: Edgar Gudino on 04-15-2025 MCHC (RBC) [Mass/Vol] 35.1 g/dL 32-36 [facility] Mean platelet volume determi nationOrdered By: Edgar Gudino on 04-15-2025 Platelet mean volume (Bld) [Entitic vol] 10.8 fL 6.2-12.0 [facility] Monocyte percentageOrdered B y: Edgar Gudino on 04-15-2025 Monocytes/100 WBC (Bld) 12.1 % High 0-10 [facility] Neutrophil percentageOrdered By: Edgar Gudino on 04-15-2025 Neutrophils/100 WBC (Bld) 59.2 % 47-70 [facility] Nucleated red blood cell per centageOrdered By: Edgar Gudino on 04-15-2025 Nucleated RBC/100 WBC (Bld) [Ratio] 0 % 0-5 [facility] Platelet countOrdered By: Candelario Gudino on 04-15-2025 Platelets (Bld) [#/Vol] 200 10*3/uL 150-450 [facility] Potassium measurement (mass/ volume)Ordered By: Edgar Gudino on 04-15-2025 Potassium (Unsp spec) [Mass/Vol] 3.9 mmol/L 3.3-5.1 [facility] RBC Auto (Bld) [#/Vol]Ordere d By: Edgar Gudino on 04-15-2025 RBC (Bld) [#/Vol] 3.22 10*6/uL Low 4.6-6.2 [facility] Serum creatinine measurement (mass/volume)Ordered By: Edgar Gudino on 04-15-2025 Creatinine [Mass/Vol] 1.38 mg/dL High 0.70-1.20 [facility] Serum glucose measurement (m ass/volume)Ordered By: Edgar Gudino on 04-15-2025 Glucose [Mass/Vol] 183 mg/dL High 70-99 [facility] Serum or plasma C reactive p rotein measurement (mass/volume)Ordered By: Coco Pepe on 04-15-2025 CRP [Mass/Vol] 30.60 mg/L High 0.0-3.0 [facility] Serum or plasma C reactive p rotein measurement (mass/volume)Ordered By: Edgar Gudino on 04-15-2025 CRP [Mass/Vol] 30.20 mg/L High 0.0-3.0 [facility] Serum or plasma calcium amadou urement (mass/volume)Ordered By: Edgar Manning on 04-15-2025 Calcium [Mass/Vol] 9.4 mg/dL 7.6-11.0 [facility] Serum or plasma urea nitroge n measurement (mass/volume)Ordered By: Edgar Gudino on 04-15-2025 Urea nitrogen [Mass/Vol] 26 mg/dL High 4-19 [facility] Sodium levelOrdered By: Aly Gudino on 04-15-2025 Sodium [Moles/Vol] 139 mmol/L 133-145 [facility] White blood cell (WBC) count Ordered By: Edgar Gudino on 04-15-2025 WBC (Bld) [#/Vol] 5.9 10*3/uL 4.4-11.0 [facility] Foot min 3 Viewson 5 Foot min 3 Views Normal [facility] 12 Lead EKG performed by [facility] on 03-08-2025 12 Lead EKG performed by [facility] Normal [facility] Cardiology Visit Reporton Cardiology Visit Report Normal [facility] AST(SGOT)on 02-26-2025 AST [Catalytic activity/Vol] 35 U/L Normal <=37 [facility] Comment on above: Performed By: #### L 501.4100, L501.1105, L100.0100, L501.4405, L101.9900, L501.6710 ####[facility] [address] [place], [place], [id number] Absolute lymphocyte countOrd ered By: Coco Hinojosafabienne on 02-26-2025 Lymphocytes Auto (Unsp spec) [#/Vol] 2.01 10*3/uL 0.83-4.51 [facility] Absolute neutrophil countOrd ered By: [facility] on 02-26-2025 Neutrophils (Bld) [#/Vol] 2.2 10*3/uL 2.0-7.7 [facility] Alanine Aminotransferas (SGP T)on 02-26-2025 ALT [Catalytic activity/Vol] 32 U/L Normal <=46 [facility] Comment on above: Performed By: #### L 501.4100, L501.1105, L100.0100, L501.4405, L101.9900, L501.6710 ####[facility] [address] [place], [address] Automated lymphocyte count a s percentage of total leukocytesOrdered By: Coco Shah on 02-26-2025 Lymphocytes/100 WBC Auto (Unsp spec) 39.8 % 19-41 [facility] Basophil percentageOrdered B y: Coco Shah on 02-26-2025 Basophils/100 WBC (Bld) 0.6 % 0-1 [facility] CBC W/Diff, Automatedon 02-12 Absolute Lymph 2.01 X10 3/uL Normal 0.83-4.51 [facility] Comment on above: Performed By: #### L 501.4100, L501.1105, L100.0100, L501.4405, L101.9900, L501.6710 ####[facility] [address] [place], [address] Absolute Neut 2.2 X10 3/uL Normal 2.0-7.7 [facility] Comment on above: Performed By: #### L 501.4100, L501.1105, L100.0100, L501.4405, L101.9900, L501.6710 ####[facility] [address] [place], [address] Basophils/100 WBC (Bld) 0.6 % Normal 0-1 [facility] Comment on above: Performed By: #### L 501.4100, L501.1105, L100.0100, L501.4405, L101.9900, L501.6710 ####[facility] [address] [place], [address] Eosinophils/100 WBC (Bld) 5.7 % High 0-5 [facility] Comment on above: Performed By: #### L 501.4100, L501.1105, L100.0100, L501.4405, L101.9900, L501.6710 ####[facility] [address] [place], [address] Erythrocyte distribution width (RBC) [Ratio] 14.3 % Normal 11.6-14.6 [facility] Comment on above: Performed By: #### L 501.4100, L501.1105, L100.0100, L501.4405, L101.9900, L501.6710 ####[facility] [address] [place], [address] Hematocrit (Bld) [Volume fraction] 33.7 % Low 40-54 [facility] Comment on above: Performed By: #### L 501.4100, L501.1105, L100.0100, L501.4405, L101.9900, L501.6710 ####[facility] [address] [place], [address] Hemoglobin (Bld) [Mass/Vol] 11.9 g/dL Low 13.0-16.5 [facility] Comment on above: Performed By: #### L 501.4100, L501.1105, L100.0100, L501.4405, L101.9900, L501.6710 ####[facility] [address] [place], [address] IG% 0.200 Normal 0.0-0.9 [facility] Comment on above: Result Comment: IG% - Immature Granulocytes (promyelocytes, myelocytes andmetamyelocytes) > 1% indicates that a LEFT SHIFT is Present. Performed By: #### L 501.4100, L501.1105, L100.0100, L501.4405, L101.9900, L501.6710 ####[facility] [address] [place], [address] Lymphocytes/100 WBC (Bld) 39.8 % Normal 19-41 [facility] Comment on above: Performed By: #### L 501.4100, L501.1105, L100.0100, L501.4405, L101.9900, L501.6710 ####[facility] [address] [place], [address] MCH (RBC) [Entitic mass] 33.7 pg High 27.0-32.0 [facility] Comment on above: Performed By: #### L 501.4100, L501.1105, L100.0100, L501.4405, L101.9900, L501.6710 ####[facility] [address] [place], [address] MCHC (RBC) [Mass/Vol] 35.3 g/dL Normal 32-36 [facility] Comment on above: Performed By: #### L 501.4100, L501.1105, L100.0100, L501.4405, L101.9900, L501.6710 ####[facility] [address] [place], [address] MCV (RBC) [Entitic vol] 95.5 fL High 80-94 [facility] Comment on above: Performed By: #### L 501.4100, L501.1105, L100.0100, L501.4405, L101.9900, L501.6710 ####[facility] [address] [place], [address] Monocytes/100 WBC (Bld) 10.7 % High 0-10 [facility] Comment on above: Performed By: #### L 501.4100, L501.1105, L100.0100, L501.4405, L101.9900, L501.6710 ####[facility] [address] [place], [address] Neutrophils/100 WBC (Bld) 43.0 % Low 47-70 [facility] Comment on above: Performed By: #### L 501.4100, L501.1105, L100.0100, L501.4405, L101.9900, L501.6710 ####[facility] [address] [place], [address] Nucleated RBC (Bld) [#/Vol] 0 10*3/uL Normal 0-5 [facility] Comment on above: Performed By: #### L 501.4100, L501.1105, L100.0100, L501.4405, L101.9900, L501.6710 ####[facility] [address] [place], [address] Platelet mean volume (Bld) [Entitic vol] 10.8 fL Normal 6.2-12.0 [facility] Comment on above: Performed By: #### L 501.4100, L501.1105, L100.0100, L501.4405, L101.9900, L501.6710 ####[facility] [address] [place], [address] Platelets (Bld) [#/Vol] 278 10*3/uL Normal 150-450 [facility] Comment on above: Performed By: #### L 501.4100, L501.1105, L100.0100, L501.4405, L101.9900, L501.6710 ####[facility] [address] [place], [address] RBC (Bld) [#/Vol] 3.53 10*6/uL Low 4.6-6.2 [facility] Comment on above: Performed By: #### L 501.4100, L501.1105, L100.0100, L501.4405, L101.9900, L501.6710 ####[facility] [address] [place], [address] RDW SD 48.7 fl High 35.1-43.9 [facility] Comment on above: Performed By: #### L 501.4100, L501.1105, L100.0100, L501.4405, L101.9900, L501.6710 ####[facility] [address] [place], [address] WBC (Bld) [#/Vol] 5.1 10*3/uL Normal 4.4-11.0 [facility] Comment on above: Performed By: #### L 501.4100, L501.1105, L100.0100, L501.4405, L101.9900, L501.6710 ####[facility] [address] [place], [address] CRPon 02-26-2025 C-REACTIVE PROT < 3.00 Normal 0.0-3.0 [facility] Comment on above: Performed By: #### L 501.4100, L501.1105, L100.0100, L501.4405, L101.9900, L501.6710 ####[facility] [address] [place], [address] Eosinophil percentageOrdered By: Coco Shah on 02-26-2025 Eosinophils/100 WBC (Bld) 5.7 % High 0-5 [facility] Erythrocyte Sed Rateon 02-26 SED RATE 3 mm/hr Normal 0-20 [facility] Comment on above: Performed By: #### L 501.4100, L501.1105, L100.0100, L501.4405, L101.9900, L501.6710 ####[facility] [address] [place], [place], [id number] Erythrocyte distribution wid th ratioOrdered By: Coco Shah on 02-26-2025 Erythrocyte distribution width (RBC) [Ratio] 14.3 % 11.6-14.6 [facility] Erythrocyte distribution wid th standard deviationOrdered By: Coco Shah on 02-26-2025 Erythrocyte distribution width (RBC) [Ratio] 48.7 fl High 35.1-43.9 [facility] Erythrocyte sedimentation ra teOrdered By: Coco Shah on 02-26-2025 ESR (Bld) [Velocity] 3 mm/h 0-20 [facility] Glomerular filtration rate ( GFR) estimation/1.73 sq m using serum, plasma, or whole bOrdered By: Coco Shah on 02-26-2025 GFR/1.73 sq M.predicted among non-blacks MDRD (S/P/Bld) [Vol rate/Area] 42 mL/min/{1.73_m2} Low >60 [facility] Comment on above: mL/min/1.73m2 CKD-EP I Creatinine Equation (2020) Hematocrit Auto (Bld) [Volum e fraction]Ordered By: Coco Shah on 02-26-2025 Hematocrit (Bld) [Volume fraction] 33.7 % Low 40-54 [facility] Hemoglobin measurementOrdere d By: Coco Shah on 02-26-2025 Hemoglobin (Bld) [Mass/Vol] 11.9 g/dL Low 13.0-16.5 [facility] Immature granulocytes/100 WB C Auto (Bld)Ordered By: Coco Shah on 02-26-2025 Immature granulocytes/100 WBC (Bld) 0.200 % 0.0-0.9 [facility] Comment on above: IG% - Immature Granu locytes (promyelocytes, myelocytes and metamyelocytes) > 1% indicates that a LEFT SHIFT is Present. Laboratory - Chemistry and C hemistry - challengeOrdered By: Coco Shah on 02-26-2025 AST [Catalytic activity/Vol] 35 U/L <38 [facility] MCV (mean corpuscular volume ) determinationOrdered By: Coco Shah on 02-26-2025 MCV (RBC) [Entitic vol] 95.5 fL High 80-94 [facility] Mean corpuscular hemoglobin (MCH) determinationOrdered By: Coco Shah on 02-26-2025 MCH (RBC) [Entitic mass] 33.7 pg High 27.0-32.0 [facility] Mean corpuscular hemoglobin concentration (MCHC) determinationOrdered By: Coco Shah on 02-26-2025 MCHC (RBC) [Mass/Vol] 35.3 g/dL 32-36 [facility] Mean platelet volume determi nationOrdered By: Coco Shah on 02-26-2025 Platelet mean volume (Bld) [Entitic vol] 10.8 fL 6.2-12.0 [facility] Monocyte percentageOrdered B y: Coco Shah on 02-26-2025 Monocytes/100 WBC (Bld) 10.7 % High 0-10 [facility] Neutrophil percentageOrdered By: Coco Shah on 02-26-2025 Neutrophils/100 WBC (Bld) 43.0 % Low 47-70 [facility] Nucleated red blood cell per centageOrdered By: Coco Shah on 02-26-2025 Nucleated RBC/100 WBC (Bld) [Ratio] 0 % 0-5 [facility] Platelet countOrdered By: Filemon Shah on 02-26-2025 Platelets (Bld) [#/Vol] 278 10*3/uL 150-450 [facility] RBC Auto (Bld) [#/Vol]Ordere d By: Coco Shah on 02-26-2025 RBC (Bld) [#/Vol] 3.53 10*6/uL Low 4.6-6.2 [facility] Serum Creatinine AND GFRon 0 02-26-2025 Creatinine [Mass/Vol] 1.64 mg/dL High 0.70-1.20 [facility] Comment on above: Performed By: #### L 501.4100, L501.1105, L100.0100, L501.4405, L101.9900, L501.6710 ####[facility] [address] [place], [address] GFR/1.73 sq M.predicted among non-blacks MDRD (S/P/Bld) [Vol rate/Area] 42 mL/min/{1.73_m2} Low >60 [facility] Comment on above: Result Comment: mL/m in/1.73m2 CKD-EPI Creatinine Equation (2020) Performed By: #### L 501.4100, L501.1105, L100.0100, L501.4405, L101.9900, L501.6710 ####[facility] [address] [place], [place], [address] Serum creatinine measurement (mass/volume)Ordered By: Coco Shah on 02-26-2025 Creatinine [Mass/Vol] 1.64 mg/dL High 0.70-1.20 [facility] Serum or plasma C reactive p rotein measurement (mass/volume)Ordered By: Coco Shah on 02-26-2025 CRP [Mass/Vol] mg/L 0.0-3.0 [facility] Serum or plasma alanine pham otransferase (ALT) measurementOrdered By: Coco Shah on 02-26-2025 ALT [Catalytic activity/Vol] 32 U/L <47 [facility] White blood cell (WBC) count Ordered By: Coco Shah on 02-26-2025 WBC (Bld) [#/Vol] 5.1 10*3/uL 4.4-11.0 [facility] MR/BMSShima 01-09-2025 MR/BMS.JAISON Normal [facility] Office Visiton 10-31-2024 Follow-up visit [id number] Yessi Hatch 1945 M Date Provider Department Center 10/31/2024 GEORGINA MCBRIDE [facility] None No family history on file Level of Service:06883 MD OFFICE/OUTPATIENT ESTABLISHED MOD MDM 30 MIN Reason for Visit and Comments: Actinic Keratosis [[id number]] - EVAN 07/11/[address] Moore (AT) [facility] Progress Noteon 10-31-2024 Progress Note DATE OF SERVICE: 10/31/2024 PATIENT NAME: Yessi Hatch : 1945 AGE: 79 y.o. CLINIC NUMBER: [id number] Visit type: Established patient Chief Complaint Patient presents with Actinic Keratosis EVAN 07/11/[address] Moore (AT) Subjective HISTORY OF PRESENT ILLNESS: This is a 79 y.o. male who presents for a follow up of actinic keratoses located on the scalp, face and neck; last seen 07/11/2024. At this visit patient was prescribed efudex cream to apply BID x 6 weeks. Admits redness, roughness, flaking, itching to the scalp and posterior neck. Patient unsure if the areas have resolved. 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 Villarreal on 08/15/2024. History of pacemaker/ defibrillator? No. History of HIV/ Hep C? No. Allergies to Lidocaine, Epinephrine, Latex or Adhesive? No. 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 Patient does use additional sun protection measures. Review of Systems Orders Placed This Encounter Medications triamcinolone (Kenalog) 0.1 % ointment Sig: Apply to affected areas BID x 2 weeks Stop using when clear. Repeat as needed for flares. Do not use on face, armpits, groin. Dispense: 454.6 g Refill: 1 There were no vitals filed for this visit. PHYSICAL EXAM GENERAL APPEARANCE: alert & oriented x 3, pleasant. Well developed, well nourished. PSYCH: appropriate mood and affect DERMATOLOGY: (all measurements are in cm, unless otherwise noted) 1. Actinic keratoses (10) Left Forehead, Left Parotid Area, Left Shinto, Left Temporal Scalp, Left Zygomatic Area, Right Forehead, Right Parotid Area, Right Shinto, Right Temporal Scalp, Right Zygomatic Area Widespread red, scaly macules [x]Chronic []Acute []Stable [x]Flaring/Exacerbatio n Patient educated on actinic keratosis and the possibility of transformation into SCC. Treatment options are discussed with risks and benefits reviewed. Patient is agreeable to start treatment with Efudex (fluorouracil) . Rx: Efudex (fluorouracil) Cream Apply a very thin layer to the sides of the face twice daily x 3 weeks. Patient thoroughly educated about treatment with Efudex, including risks, benefits and detailed application instructions. The severity of your reaction to this medication cannot be predicted. It is normal to have some redness/ irritation and crusting, but to stop treatment if patient develops any pain, open sores, weeping, oozing or ulceration. If any issues with treatment, stop medication and contact office. The skin must be protected from sun exposure; use clothing, sunscreen, hats, etc. Apply 15-20 minutes before any other creams or makeup. Apply at least 1 hour before bedtime in order for medication to soak in. Do not get into eyes. Wash hands thoroughly after application. Related Medications fluorouracil (Efudex) 5 % cream Apply a thin layer to affected areas bid x 6 weeks 2. Stasis dermatitis Left Lower Leg - Anterior Pt. Has pronounced swelling of the bilateral lower legs. Eczematous patch of the left montanez [x]Chronic []Acute []Stable [x]Flaring/Exacerbatio n Educated and reassured. Treatment options, risks, benefits, and expectations reviewed. Start: - Triamcinolone 0.1% ointment- Apply to affected areas BID x 2 weeks Stop using when clear. Repeat as needed for flares. Do not use on face, armpits, groin Risks associated with care home topical steroid use reviewed in detail. Patient was advised that topical steroid is being used for short term relief and not as maintenance. Overuse of topical steroids can result in permanent skin thinning/atrophy, skin discoloration, unwanted hair growth, acne and/or stretch chi/striae. Educated and reassured. Advised patient to use compression stockings which can help alleviate symptoms and prevent worsening of the swelling and itching. Leg elevation also helps to temporarily relieve symptoms. Patient is going to start Lasix tomorrow, as prescribed by his PCP sandy Patelalog) 0.1 % ointment - Left Lower Leg - Anterior Apply to affected areas BID x 2 weeks Stop using when clear. Repeat as needed for flares. Do not use on face, armpits, groin. Follow up for February- f/u. Georgina Moore MD 10/31/24 10:46 AM REFERRING MD: [facility] Albumin to globulin ratioOrd ered By: Zach Turner on 10-30-2024 Albumin/Globulin [Mass ratio] 0.8 {ratio} Low 0.9-2.4 [facility] Bilirubin, totalOrdered By: Zach Turner on 10-30-2024 Bilirubin [Mass/Vol] 0.50 mg/dL 0.20-1.00 [facility] Comment on above: For patients on eltr ombopag therapy, use of Dimension Ramer TBIL is not recommended. Blood urea nitrogen (BUN)/cr eatinine ratioOrdered By: Zach Turner on 10-30-2024 Urea nitrogen/Creatinine [Mass ratio] 16.2 mg/mg 10-20 [facility] Carbon dioxide measurementOr dered By: Zach Turner on 10-30-2024 CO2 [Moles/Vol] 26.0 mmol/L 21.0-32.0 [facility] Chloride measurementOrdered By: Zach Turner on 10-30-2024 Chloride [Moles/Vol] 106 mmol/L 98-107 [facility] Comprehensive Metabolic Prof ilon 10-30-2024 Albumin [Mass/Vol] 3.4 g/dL Normal 3.2-5.0 [facility] Comment on above: Order Comment: Order Date: 10/30/24Order Info: [id number] - CMP Performed By: #### L 500.4050 ####[facility] [address] [place], [place], [id number] Albumin/Globulin [Mass ratio] 0.8 {ratio} Low 0.9-2.4 [facility] Comment on above: Order Comment: Order Date: 10/30/24Order Info: [id number] - CMP Performed By: #### L 500.4050 ####[facility] [address] [place] [place], [address] ALK P 110 U/L Normal 45-117 [facility] Comment on above: Order Comment: Order Date: 10/30/24Order Info: [id number] - CMP Performed By: #### L 500.4050 ####[facility] [facility] [address] [place], [address] ALT [Catalytic activity/Vol] 31 U/L Normal 16-61 [facility] Comment on above: Order Comment: Order Date: 10/30/24Order Info: 0786-1 - CMP Performed By: #### L 500.4050 ####[facility] [address] [place], [address] AST [Catalytic activity/Vol] 26 U/L Normal 15-37 [facility] Comment on above: Order Comment: Order Date: 10/30/24Order Info: 0786-1 - CMP Performed By: #### L 500.4050 ####[facility] [address] [place], [address] Bilirubin [Mass/Vol] 0.50 mg/dL Normal 0.20-1.00 [facility] Comment on above: Order Comment: Order Date: 10/30/24Order Info: 0786-1 - CMP Result Comment: For patients on eltrombopag therapy, use of Dimension Ramer TBIL is not recommended. Performed By: #### L 500.4050 ####[facility] [address] [place], [address] BUN/CRE 16.2 RATIO Normal 10-20 [facility] Comment on above: Order Comment: Order Date: 10/30/24Order Info: 0786-1 - CMP Performed By: #### L 500.4050 ####[facility] [address] [place], [address] CA,Total 9.8 mg/dL Normal 8.5-10.1 [facility] Comment on above: Order Comment: Order Date: 10/30/24Order Info: 07- - CMP Performed By: #### L 500.4050 ####[facility] [address] [place], [address] Chloride [Moles/Vol] 106 mmol/L Normal 98-107 [facility] Comment on above: Order Comment: Order Date: 10/30/24Order Info: 785-1 - CMP Performed By: #### L 500.4050 ####[facility] [address] [place], [address] CO2 [Moles/Vol] 26.0 mmol/L Normal 21.0-32.0 [facility] Comment on above: Order Comment: Order Date: 10/30/24Order Info: 785- - CMP Performed By: #### L 500.4050 ####[facility] [address] [place], [address] Creatinine [Mass/Vol] 1.36 mg/dL High 0.70-1.30 [facility] Comment on above: Order Comment: Order Date: 10/30/24Order Info: 785- - CMP Result Comment: The validity of the calculated GFR GFRAA in patients over70 years has not been determined. Clinical correlation isessential. Performed By: #### L 500.4050 ####[facility] [address] [place], [address] EST GFR - AA 65 mL/min Normal >60 [facility] Comment on above: Order Comment: Order Date: 10/30/24Order Info: 07-1 - CMP Result Comment: Afri can Belarusian GFR Calc Performed By: #### L 500.4050 ####[facility] [address] [place], [address] GAP 5 Normal 5-15 [facility] Comment on above: Order Comment: Order Date: 10/30/24Order Info: 07- - CMP Performed By: #### L 500.4050 ####[facility] [address] [place], [place], [address] GFR/1.73 sq M.predicted among non-blacks MDRD (S/P/Bld) [Vol rate/Area] 53 mL/min/{1.73_m2} Low >60 [facility] Comment on above: Order Comment: Order Date: 10/30/24Order Info: 0786-1 - CMP Result Comment: Non- GFR Calc Performed By: #### L 500.4050 ####[facility] [address] [place], [place], [phone] Globulin (S) [Mass/Vol] 4.2 g/dL Normal 2.2-4.2 [facility] Comment on above: Order Comment: Order Date: 10/30/24Order Info: 0786-1 - CMP Performed By: #### L 500.4050 ####[facility] [address] [place], [address] Glucose [Mass/Vol] 195 mg/dL High 74-106 [facility] Comment on above: Order Comment: Order Date: 10/30/24Order Info: 0786-1 - CMP Result Comment: Fast ing Glucose result greater than or equal to 126 mg/dLsuggests DIABETES MELLITUS per A.D.A. criteria. Performed By: #### L 500.4050 ####[facility] [address] [place], [place], [phone] Potassium [Moles/Vol] 3.9 mmol/L Normal 3.5-5.1 [facility] Comment on above: Order Comment: Order Date: 10/30/24Order Info: 0786-1 - CMP Performed By: #### L 500.4050 ####[facility] [address] [place], [place], [phone] Sodium [Moles/Vol] 138 mmol/L Normal 136-145 [facility] Comment on above: Order Comment: Order Date: 10/30/24Order Info: 0786-1 - CMP Performed By: #### L 500.4050 ####[facility] [address] [place], [place], [address] T PROT 7.6 g/dL Normal 6.4-8.2 [facility] Comment on above: Order Comment: Order Date: 10/30/24Order Info: 0786-1 - CMP Performed By: #### L 500.4050 ####[facility] [address] [place], [address] Urea nitrogen [Mass/Vol] 22 mg/dL High 7-18 [facility] Comment on above: Order Comment: Order Date: 10/30/24Order Info: 0786-1 - CMP Performed By: #### L 500.4050 ####[facility] [address] [place], [address] Estimated glomerular filtrat ion rate (GFR) AmericanOrdered By: Zach Turner on 10-30-2024 Estimated GFR (MDRD) Amer 65 mL/min >60 [facility] Comment on above: GFR Calc Glomerular filtration rate ( GFR) estimationOrdered By: Zach Turner on 10-30-2024 Estimated GFR (MDRD) Non-Af Amer 53 mL/min Low >60 [facility] Comment on above: Non- GFR Calc Glucose measurementOrdered B y: Zach Turner on 10-30-2024 Glucose [Mass/Vol] 195 mg/dL High 74-106 [facility] Comment on above: Fasting Glucose resu lt greater than or equal to 126 mg/dL suggests DIABETES MELLITUS per A.D.A. criteria. Laboratory - Chemistry and C hemistry - challengeOrdered By: Zach Turner on 10-30-2024 AST [Catalytic activity/Vol] 26 U/L 15-37 [facility] Potassium measurementOrdered By: Zach Turner on 10-30-2024 Potassium [Moles/Vol] 3.9 mmol/L 3.5-5.1 [facility] Serum anion gap measurementO rdered By: Zach Turner on 10-30-2024 Anion gap [Moles/Vol] 5 mmol/L 5-15 [facility] Serum globulin measurementOr dered By: Zach Turner on 10-30-2024 Globulin (S) [Mass/Vol] 4.2 g/dL 2.2-4.2 [facility] Serum or plasma alanine pham otransferase (ALT) measurementOrdered By: Zach Turner on 10-30-2024 ALT [Catalytic activity/Vol] 31 U/L 16-61 [facility] Serum or plasma albumin amadou urement (mass/volume)Ordered By: Zach Turner on 10-30-2024 Albumin [Mass/Vol] 3.4 g/dL 3.2-5.0 [facility] Serum or plasma alkaline jovana sphatase measurementOrdered By: Zach Turner on 10-30-2024 ALP [Catalytic activity/Vol] 110 U/L 45-117 [facility] Serum or plasma calcium amadou urement (mass/volume)Ordered By: Zach Turner on 10-30-2024 Calcium [Mass/Vol] 9.8 mg/dL 8.5-10.1 [facility] Serum or plasma creatinine m easurement (mass/volume)Ordered By: Zach Turner on 10-30-2024 Creatinine [Mass/Vol] 1.36 mg/dL High 0.70-1.30 [facility] Comment on above: The validity of the calculated GFR & GFRAA in patients over 70 years has not been determined. Clinical correlation is essential. Serum or plasma urea nitroge n measurement (mass/volume)Ordered By: Zach Turner on 10-30-2024 Urea nitrogen [Mass/Vol] 22 mg/dL High 7-18 [facility] Sodium levelOrdered By: Zach Turner on 10-30-2024 Sodium [Moles/Vol] 138 mmol/L 136-145 [facility] Total proteinOrdered By: Ksenia Turner on 10-30-2024 Protein [Mass/Vol] 7.6 g/dL 6.4-8.2 [facility] Basic Metabolic Profile (BMP )on 10-08-2024 BUN/CRE 20.0 RATIO Normal 10-20 [facility] Comment on above: Order Comment: Order Date: 10/02/24Order Info: 0667-1 - BMP Performed By: #### L 500.2500 ####[facility] [address] [place], [address] CA,Total 10.0 mg/dL Normal 8.5-10.1 [facility] Comment on above: Order Comment: Order Date: 10/02/24Order Info: 666-11 - BMP Performed By: #### L 500.2500 ####[facility] [address] [place], [address] Chloride [Moles/Vol] 106 mmol/L Normal 98-107 [facility] Comment on above: Order Comment: Order Date: 10/02/24Order Info: 666-11 - BMP Performed By: #### L 500.2500 ####[facility] [address] [place], [address] CO2 [Moles/Vol] 26.0 mmol/L Normal 21.0-32.0 [facility] Comment on above: Order Comment: Order Date: 10/02/24Order Info: 666-11 - BMP Performed By: #### L 500.2500 ####[facility] [address] [place], [address] Creatinine [Mass/Vol] 1.40 mg/dL High 0.70-1.30 [facility] Comment on above: Order Comment: Order Date: 10/02/24Order Info: 666-11 - BMP Result Comment: The validity of the calculated GFR GFRAA in patients over70 years has not been determined. Clinical correlation isessential. Performed By: #### L 500.2500 ####[facility] [address] [place], [address] EST GFR - AA 63 mL/min Normal >60 [facility] Comment on above: Order Comment: Order Date: 10/02/24Order Info: 666-11 - BMP Result Comment: Afri can Belarusian GFR Calc Performed By: #### L 500.2500 ####[facility] [address] [place], [address] GAP 8 Normal 5-15 [facility] Comment on above: Order Comment: Order Date: 10/02/24Order Info: 666-11 - BMP Performed By: #### L 500.2500 ####[facility] [address] [place], [phone](872) GFR/1.73 sq M.predicted among non-blacks MDRD (S/P/Bld) [Vol rate/Area] 52 mL/min/{1.73_m2} Low >60 [facility] Comment on above: Order Comment: Order Date: 10/02/24Order Info: 666-11 - BMP Result Comment: Non- GFR Calc Performed By: #### L 500.2500 ####[facility] [address] [place], [phone](964) Glucose [Mass/Vol] 169 mg/dL High 74-106 [facility] Comment on above: Order Comment: Order Date: 10/02/24Order Info: 666-11 - BMP Result Comment: Fast ing Glucose result greater than or equal to 126 mg/dLsuggests DIABETES MELLITUS per A.D.A. criteria. Performed By: #### L 500.2500 ####[facility] [address] [place], [address] Potassium [Moles/Vol] 4.1 mmol/L Normal 3.5-5.1 [facility] Comment on above: Order Comment: Order Date: 10/02/24Order Info: 666-11 - BMP Performed By: #### L 500.2500 ####[facility] [address] [place], [address] Sodium [Moles/Vol] 140 mmol/L Normal 136-145 [facility] Comment on above: Order Comment: Order Date: 10/02/24Order Info: 666-11 - BMP Performed By: #### L 500.2500 ####[facility] [address] [place], [address] Urea nitrogen [Mass/Vol] 28 mg/dL High 7-18 [facility] Comment on above: Order Comment: Order Date: 10/02/24Order Info: 0667-1 - BMP Performed By: #### L 500.2500 ####[facility] [address], [address] CRPon 10-02-2024 C-REACTIVE PROT 9.97 mg/L High 0.0-3.0 [facility] Comment on above: Order Comment: Order Date: 10/02/24Order Info: 58501-7 - CRP Result Comment: C-Re active Protein (CRP) provides useful information for thediagnosis, therapy and monitoring of inflammatory processesand associated diseases. For the evaluation of Relative Riskfor Cardiovascular Disease, a High Sensitivity CRP (HSCRP)should be ordered. Performed By: #### L 501.6710, L101.9900 ####[facility] [address] [place], [address] Erythrocyte Sed Rateon 10-02 SED RATE 16 mm/hr Normal 0- [facility] Comment on above: Order Comment: Order Date: 10/02/24Order Info: 31276-1 - SED Performed By: #### L 501.6710, L101.9900 ####[facility] [address] [place], [address] Emergency Department Summary on 09-30-2024 Emergency Department Summary Normal [facility] BUNon 09-07-2024 Urea nitrogen [Mass/Vol] 26 mg/dL High 05-31 [facility] Comment on above: Performed By: #### L 501.1000, L400.0001, L501.1105 ####[facility] [address] [place], [address] Serum Creatinine AND GFRon Creatinine [Mass/Vol] 1.40 mg/dL High 0.70-1.30 [facility] Comment on above: Result Comment: The validity of the calculated GFR GFRAA in patients over70 years has not been determined. Clinical correlation isessential. Performed By: #### L 501.1000, L400.0001, L501.1105 ####[facility] [address] [place], [address] EST GFR - AA 63 mL/min Normal >60 [facility] Comment on above: Result Comment: Afri can Belarusian GFR Calc Performed By: #### L 501.1000, L400.0001, L501.1105 ####[facility] [address] [place], [address] GFR/1.73 sq M.predicted among non-blacks MDRD (S/P/Bld) [Vol rate/Area] 52 mL/min/{1.73_m2} Low >60 [facility] Comment on above: Result Comment: Non- GFR Calc Performed By: #### L 501.1000, L400.0001, L501.1105 ####[facility] [address] [place], [address] Urinalysis, Completeon 09-07 BACTERIA 0 SEEN Normal None Seen [facility] Comment on above: Order Comment: CLEAN CATCH Performed By: #### L 501.1000, L400.0001, L501.1105 ####[facility] [address] [place], [address] EPI,SQUAMOUS 0 SEEN Normal 0-5 [facility] Comment on above: Order Comment: CLEAN CATCH Performed By: #### L 501.1000, L400.0001, L501.1105 ####[facility] [address] [place], [address] Mucus Ql (Urine sed) 0 SEEN Normal [facility] Comment on above: Order Comment: CLEAN CATCH Performed By: #### L 501.1000, L400.0001, L501.1105 ####[facility] [address] [place], [address] RBC 0 SEEN Normal 0-5 [facility] Comment on above: Order Comment: CLEAN CATCH Performed By: #### L 501.1000, L400.0001, L501.1105 ####[facility] [address] [place], [address] WBC 0 SEEN Normal 0-5 [facility] Comment on above: Order Comment: CLEAN CATCH Performed By: #### L 501.1000, L400.0001, L501.1105 ####[facility] [address] [place], [address] [facility] [place]ENDOUT (SENDOUT)o n 08-28-2024 [facility] MISCELLANEOUS LAB TEST RESULT Normal [facility] Comment on above: Result Comment: FARAZ Patel COMMENTS: Results are attached to the pathology report, case # [id number]. See scan in [employer]. Performed By: #### L [id number] ####Reeler Operator: SOLEDAD BEASLEY ([phone])[facility] ([address] AST(SGOT)on 08-22-2024 AST [Catalytic activity/Vol] 23 U/L Normal 15-37 [facility] Comment on above: Performed By: #### L 501.6710, L501.4405, L501.1105, L101.9900, L100.0100, L501.4100 ####[facility] [address] [place], [address] Alanine Aminotransferas (SGP T)on 08-22-2024 ALT [Catalytic activity/Vol] 27 U/L Normal 16-61 [facility] Comment on above: Performed By: #### L 501.6710, L501.4405, L501.1105, L101.9900, L100.0100, L501.4100 ####[facility] [address] [place], [address] CBC W/Diff, Automatedon 10-0 Absolute Lymph 1.01 X10 3/uL Normal 0.83-4.51 [facility] Comment on above: Performed By: #### L 501.6710, L501.4405, L501.1105, L101.9900, L100.0100, L501.4100 ####[facility] [address] [place], [address] Absolute Neut 3.8 X10 3/uL Normal 2.0-7.7 [facility] Comment on above: Performed By: #### L 501.6710, L501.4405, L501.1105, L101.9900, L100.0100, L501.4100 ####[facility] [address] [place], [address] Basophils/100 WBC (Bld) 0.8 % Normal 0-1 [facility] Comment on above: Performed By: #### L 501.6710, L501.4405, L501.1105, L101.9900, L100.0100, L501.4100 ####[facility] [address] [place], [address] Eosinophils/100 WBC (Bld) 9.5 % High 0-5 [facility] Comment on above: Performed By: #### L 501.6710, L501.4405, L501.1105, L101.9900, L100.0100, L501.4100 ####[facility] [address] [place], [address] Erythrocyte distribution width (RBC) [Ratio] 14.7 % High 11.6-14.6 [facility] Comment on above: Performed By: #### L 501.6710, L501.4405, L501.1105, L101.9900, L100.0100, L501.4100 ####[facility] [address] [place], [address] Hematocrit (Bld) [Volume fraction] 34.0 % Low 40-54 [facility] Comment on above: Performed By: #### L 501.6710, L501.4405, L501.1105, L101.9900, L100.0100, L501.4100 ####[facility] [address] [place], [address] Hemoglobin (Bld) [Mass/Vol] 11.4 g/dL Low 13.0-16.5 [facility] Comment on above: Performed By: #### L 501.6710, L501.4405, L501.1105, L101.9900, L100.0100, L501.4100 ####[facility] [address] [place], [address] IG% 0.800 Normal 0.0-0.9 [facility] Comment on above: Result Comment: IG% - Immature Granulocytes (promyelocytes, myelocytes andmetamyelocytes) > 1% indicates that a LEFT SHIFT is Present. Performed By: #### L 501.6710, L501.4405, L501.1105, L101.9900, L100.0100, L501.4100 ####[facility] [address] [place], [address] Lymphocytes/100 WBC (Bld) 16.0 % Low 19-41 [facility] Comment on above: Performed By: #### L 501.6710, L501.4405, L501.1105, L101.9900, L100.0100, L501.4100 ####[facility] [address] [place], [address] MCH (RBC) [Entitic mass] 33.5 pg High 27.0-32.0 [facility] Comment on above: Performed By: #### L 501.6710, L501.4405, L501.1105, L101.9900, L100.0100, L501.4100 ####[facility] [address] [place], [address] MCHC (RBC) [Mass/Vol] 33.5 g/dL Normal 32-36 [facility] Comment on above: Performed By: #### L 501.6710, L501.4405, L501.1105, L101.9900, L100.0100, L501.4100 ####[facility] [address] [place], [address] MCV (RBC) [Entitic vol] 100.0 fL High 80-94 [facility] Comment on above: Performed By: #### L 501.6710, L501.4405, L501.1105, L101.9900, L100.0100, L501.4100 ####[facility] [address] [place], [address] Monocytes/100 WBC (Bld) 12.8 % High 0-10 [facility] Comment on above: Performed By: #### L 501.6710, L501.4405, L501.1105, L101.9900, L100.0100, L501.4100 ####[facility] [address] [place], [address] Neutrophils/100 WBC (Bld) 60.1 % Normal 47-70 [facility] Comment on above: Performed By: #### L 501.6710, L501.4405, L501.1105, L101.9900, L100.0100, L501.4100 ####[facility] [address] [place], [address] Nucleated RBC (Bld) [#/Vol] 0 10*3/uL Normal 0-5 [facility] Comment on above: Performed By: #### L 501.6710, L501.4405, L501.1105, L101.9900, L100.0100, L501.4100 ####[facility] [address] [place], [address] Platelet mean volume (Bld) [Entitic vol] 10.5 fL Normal 6.2-12.0 [facility] Comment on above: Performed By: #### L 501.6710, L501.4405, L501.1105, L101.9900, L100.0100, L501.4100 ####[facility] [address] [place], [address] Platelets (Bld) [#/Vol] 192 10*3/uL Normal 150-450 [facility] Comment on above: Performed By: #### L 501.6710, L501.4405, L501.1105, L101.9900, L100.0100, L501.4100 ####[facility] [address] [place], [address] RBC (Bld) [#/Vol] 3.40 10*6/uL Low 4.6-6.2 [facility] Comment on above: Performed By: #### L 501.6710, L501.4405, L501.1105, L101.9900, L100.0100, L501.4100 ####[facility] [address] [place], [address] RDW SD 52.3 fl High 35.1-43.9 [facility] Comment on above: Performed By: #### L 501.6710, L501.4405, L501.1105, L101.9900, L100.0100, L501.4100 ####[facility] [address] [place], [address] WBC (Bld) [#/Vol] 6.3 10*3/uL Normal 4.4-11.0 [facility] Comment on above: Performed By: #### L 501.6710, L501.4405, L501.1105, L101.9900, L100.0100, L501.4100 ####[facility] [address] [place], [address] CRPon 08-22-2024 C-REACTIVE PROT < 2.90 Normal 0.0-3.0 [facility] Comment on above: Result Comment: C-Re active Protein (CRP) provides useful information for thediagnosis, therapy and monitoring of inflammatory processesand associated diseases. For the evaluation of Relative Riskfor Cardiovascular Disease, a High Sensitivity CRP (HSCRP)should be ordered. Performed By: #### L 501.6710, L501.4405, L501.1105, L101.9900, L100.0100, L501.4100 ####[facility] [address] [place], [address] Erythrocyte Sed Rateon 08-22 SED RATE 2 mm/hr Normal 0-20 [facility] Comment on above: Performed By: #### L 501.6710, L501.4405, L501.1105, L101.9900, L100.0100, L501.4100 ####[facility] [address] [place], [address] Serum Creatinine AND GFRon 1 Creatinine [Mass/Vol] 1.53 mg/dL High 0.70-1.30 [facility] Comment on above: Result Comment: The validity of the calculated GFR GFRAA in patients over70 years has not been determined. Clinical correlation isessential. Performed By: #### L 501.6710, L501.4405, L501.1105, L101.9900, L100.0100, L501.4100 ####[facility] [address] [place], [address] EST GFR - AA 56 mL/min Low >60 [facility] Comment on above: Result Comment: Afri can Belarusian GFR Calc Performed By: #### L 501.6710, L501.4405, L501.1105, L101.9900, L100.0100, L501.4100 ####[facility] [address] [place], [address] GFR/1.73 sq M.predicted among non-blacks MDRD (S/P/Bld) [Vol rate/Area] 47 mL/min/{1.73_m2} Low >60 [facility] Comment on above: Result Comment: Non- GFR Calc Performed By: #### L 501.6710, L501.4405, L501.1105, L101.9900, L100.0100, L501.4100 ####[facility] [address] [place], [address] PT D/C Summary (1)on 024 PT D/C Summary (1) Normal [facility] CBC W/Diff, Automatedon 07-15 Absolute Lymph 1.01 X10 3/uL Normal 0.83-4.51 [facility] Comment on above: Performed By: #### L 100.0100 ####[facility] [address] [place], [address] Absolute Neut 2.5 X10 3/uL Normal 2.0-7.7 [facility] Comment on above: Performed By: #### L 100.0100 ####[facility] [address] [place], [address] Basophils/100 WBC (Bld) 0.9 % Normal 0-1 [facility] Comment on above: Performed By: #### L 100.0100 ####[facility] [address] [place], [address] Eosinophils/100 WBC (Bld) 10.4 % High 0-5 [facility] Comment on above: Performed By: #### L 100.0100 ####[facility] [address] [place], [address] Erythrocyte distribution width (RBC) [Ratio] 14.6 % Normal 11.6-14.6 [facility] Comment on above: Performed By: #### L 100.0100 ####[facility] [address] [place], [address] Hematocrit (Bld) [Volume fraction] 33.9 % Low 40-54 [facility] Comment on above: Performed By: #### L 100.0100 ####[facility] [address] [place], [address] Hemoglobin (Bld) [Mass/Vol] 11.4 g/dL Low 13.0-16.5 [facility] Comment on above: Performed By: #### L 100.0100 ####[facility] [address] [place], [address] IG% 0.400 Normal 0.0-0.9 [facility] Comment on above: Result Comment: IG% - Immature Granulocytes (promyelocytes, myelocytes andmetamyelocytes) > 1% indicates that a LEFT SHIFT is Present. Performed By: #### L 100.0100 ####[facility] [address] [place], [address] Lymphocytes/100 WBC (Bld) 22.2 % Normal 19-41 [facility] Comment on above: Performed By: #### L 100.0100 ####[facility] [address] [place], [address] MCH (RBC) [Entitic mass] 33.5 pg High 27.0-32.0 [facility] Comment on above: Performed By: #### L 100.0100 ####[facility] [address] [place], [address] MCHC (RBC) [Mass/Vol] 33.6 g/dL Normal 32-36 [facility] Comment on above: Performed By: #### L 100.0100 ####[facility] [address] [place], [address] MCV (RBC) [Entitic vol] 99.7 fL High 80-94 [facility] Comment on above: Performed By: #### L 100.0100 ####[facility] [address] [place], [address] Monocytes/100 WBC (Bld) 10.4 % High 0-10 [facility] Comment on above: Performed By: #### L 100.0100 ####[facility] [address] [place], [address] Neutrophils/100 WBC (Bld) 55.7 % Normal 47-70 [facility] Comment on above: Performed By: #### L 100.0100 ####[facility] [address] [place], [address] Nucleated RBC (Bld) [#/Vol] 0 10*3/uL Normal 0-5 [facility] Comment on above: Performed By: #### L 100.0100 ####[facility] [address] [place], [address] Platelet mean volume (Bld) [Entitic vol] 10.5 fL Normal 6.2-12.0 [facility] Comment on above: Performed By: #### L 100.0100 ####[facility] [address] [place], [address] Platelets (Bld) [#/Vol] 209 10*3/uL Normal 150-450 [facility] Comment on above: Performed By: #### L 100.0100 ####[facility] [address] [place], [address] RBC (Bld) [#/Vol] 3.40 10*6/uL Low 4.6-6.2 [facility] Comment on above: Performed By: #### L 100.0100 ####[facility] [address] [place], [address] RDW SD 50.9 fl High 35.1-43.9 [facility] Comment on above: Performed By: #### L 100.0100 ####[facility] [address] [place], [address] WBC (Bld) [#/Vol] 4.5 10*3/uL Normal 4.4-11.0 [facility] Comment on above: Performed By: #### L 100.0100 ####[facility] [address] [place], [address] 36on 07-26-2024 36 Patient scheduled wi th DSC on 08/15/2024 at 1:15 pm. [facility] 07-23-[address] Moore: Please let the patient/his know that the lesion biopsied from his ear is a skin cancer that will require a further outpatient surgery to make sure all of the 'roots' are gone and that it does not recur. Please help him get referred to a Moh's surgeon to have this lesion taken care of. I will see him at his follow-up appointment but he is welcome to call at any time with any questions or concerns. Called and spoke with pt-Per Dr. Moore, advised him of all of the above. I then let him know I would fax over a referral to Dr. Khan office, and they should contact him directly to schedule. I then provided pt with Dr. Khan name and phone number. Pt educated and verbalized understanding. [facility] 07-20-2024 36 Called and LMOM for pt-Pt to return call. [facility] 07-19-2024 36 Patient left voicema il on nurse line requesting a call back for his recent biopsy results. He states he has other questions as well. [facility] 07-18-2024 36 Called and LMOM for pt-Pt to return call. [facility] Re-Evaluation - PT (1)on Re-Evaluation - PT (1) [facility] 36on 07-17-2024 36 Please refer the patient to a Moh's surgeon to have the lesion of his left ear treated by Moh's. [facility] Tissue examOrdered By: Reagan Burch on 07-13-2024 Case Report Surgical Pathology Case: [id number] Authorizing Provider: Georgina Moore MD Collected: 07/11/2024 1328 Ordering Location: [facility] Received: 07/12/2024 1034 Dermatology Pathologist: Adan Burch MD Specimen: DERM, Skin, Left [place] [facility] [employer] Work Phone: Clinical Information q9wkzPOmNMFloBMbATm wNF xrluJhZIMtfLHwE0Jbpqye MSujHX9pLW8euKeqzJWxjI TxUBItFlLxv9bwv686yZJa u2bnXCFGJYchOCLVOAo2zU tuD69ij5U5FxwtG28odFOn CTX6WEIvNPWhwMDiTQDcSW I3ISZtcKMzN7niBCLmVH4k tqtjGOczPKwqUJAtiAY4QM NinCZhT9McIQExGNvkPLKl qjk2VrYrAh2liRAiaBxuXQ xwYXJkXHBsYWluXGZzMjAg DeWUOWNnqpJ1lcMLR6CmhJ FyfQ== [employer] Work Phone: Disclaimer a3qvbXLqNWRfrTSyDnMa IlABHsl2wnIAQucDYlHeTp MzNcZnRuYmpcdWMxXGRlZm Ijp4ouq382wSDub1xlNRMy GpD9jLFrVZUaU48eZBJOU2 15MHQvJPlhp2guu5VqCXEb aKHjf9K3JHQBIZegISINEN s5oAskV81ov7C0VicsV5hb DRGhKMKsR5AaEY1hROVmYs r6JHM7AXC0CXYsHFFaK1Mf OT3nNKHssSUsJCg7y4wygT uqJJDfMZT5i9rlZMarhtLd BD0pem3rpRv9x8xbdlMsNN XvTXLwzYSQLLLsG8BycJlg Yu2zrHy3jTtnMdceAOA4Aw l9BE5uge07qvg3pZkiJINn fhnvQrW8ZUwnSUJcnjzzGG i9HAnxXPYspGS4FUCllFQq C3XvOXBsVT4scwx9GWO8GD uyPSYjWtO8PGSdiZWmUZRf yRwuWAqqa258YBK7AqIkSZ 8aL0Ndz9X3wD4mqQYtUDUh aULiAxTzDTOheq4elJHvEB vmi1DnKCS0uoH3gCNhmUPm WSVwLR14Egfmi8GnEgzkWO U8BBHcpdZiu5Zrp6crKwQv uuJpD3txM4CtQHZcFNNgLR LzGbMewpGkp3Ysi3BwoMHh lYi9y1skOQMvCFCahHbrp1 iqQXP2IJFbU4W8nTThs4jy SPkkIMHfvKJ9rlO5RYDwzU DiE7QboT1wYBGiXL0sxch1 m4bsVIK2TWheBISiLkR2cq N0MZKrhYUsQJYrfVngQHpb t310SUY9LqNjGLKts9NxX7 TwiDvpJ63itYrjS83jECPz pXjnoU4ahRsbbG2wRqEkMq MyNFxxbFxwbGFpblxmMVxm bvH8PEhmgzkpAVEvXLvtD0 tgUkTuKFTcnTjvIBbhj0Ih XYJeJDQfRQGzYIdjD6kirF 3yqvhhPZflELBkvIjlh3oo ByVlfHN7SP3vtmPgRGImbU vqtdU2abCphNrsfX9cyB4s zNwcvI7kiHKqaCK6ufruHB luIHNpdHUgaHlicmlkaXph oMvkutpzpO3eIES9kMCyTF O8dAXrOQNjQZTvBDOveX16 pa7ebWBebxWzJ9XdB1WkeM DsbQnpCdxmyIGkpCRwEo1y iPQxPO9gGCGtfEJiL5WuDJ 4gXHBhclxwYXIgVGhlIHVz YOLwWgWugjYgo6DnsE1iVA UgOEZhRJ12rdEpvaX2dKEt YWJvdmUgdGVzdHMgaXMgcm VndWxhdGVkIGFzIGFuIGFu SRr6uSJsd0JeJ8leyXWvwn JtS7ZbbLHlSFOHRP5lURxm u0ZuzIEifLDep8LhKEEdYM EfaQ1cCVYrMF6hLHVmHQcu ABTzwsKbhw4mfhZpITAqFV UqS0VxwclvwQqlmfTfVFYg rf8ueqRfYSZ9HPFzMSYmrF pmfUGcbRQpLAOfhsS7q9Bp SQIhy9WkU8GpoICjIIVmaW MuDRX7s6CimL3oRGsmqLXb MOTjKJ0qhVEeSDYzGWEnVJ FyZWQgYnkgdGhlIFVTIEZv r3FkQL3mDCTbnCatHXWmjH 6nv9CnAGSjf92zWXWRPLtq IFRoZSBGREEgaGFzIGRldG VybWluZWQgdGhhdCBzdWNo BFPoRXIlKK0wUOIbtbObgH Iqk8IhtOGateWig8NohdTw WAMxWGW9CqAarUVvEUCprh GPvPsilI2rbB6sm3MqhT9g FQfbwxAdoWFoOy4paXYsCM 9uIHBhcmFmZmluIGVtYmVk AHFgBWGvx8E7DF2sJLHhfx 0goxnzoSZclJ8ksIZaxmOn FH0tAT8vE9G2yGNsTZOkay Elr4zhXRq8nAOmSEAxjQBb cPHsOxpvONH0QQChFPJ7ty PhosXkVCBayTuqdJI4tHLz KUPmOSMdWFLfUF99J9Nus5 VyV3nkVR90ZUTxLRXfUNKc qyJkw9ygVYWul9tfUILmxP IwS7KqMEVobGMclryjEdZr GIP8GLZcDBZ1kESwJXZbO2 PfmYGjjUWicP84DM8ryVJ2 EB5oMUY5YRwtuJ4gPoWFqL 83iq4zdQQ3d9PbQN3oO2Nf BVUiz2W9qdQmCUAiHL0fxC BiZWVuIHZhbGlkYXRlZCBv tzMjXXVbwWOkMxzvKEK7yM RhbFMfXmMNRIZ4tVHaKUAs z6NnTIAqJICeoqWdfgKwCK CoBLU2uEEcGNDumYElf39n F4b0AH4owFkfJWAgsKPpCU Npd9ZzrIRfjMu2iDYjXzPq GRmhWPBzHUwtaCm3mPA8GS 0wGHLpD2RhH2yfdCJxHRFz YHTjsHChtn5nbMSopY== [facility] Work Phone: Gross Description g2txnQVmIHTcjLTyZVao NF exnkYdJOUfkJXjP8Qhkqro GXqjUQ8wRZ8xiMlnmMPrxN EmCUOgEtNab3pmg775rLFh l9vvJQFCYXhqGMZRENq8tF vzL32oy4F1OvqqW77iyKEi MPX7YEMyKBOwyGMfDYFsWO P0GCNkgRAyY8ieYCEvXL4u piqkFVsyULarQORzvGE1HY MajDAkZ8UkOHVmXZjlJWLp lbi6HmLzVp2crQKpuAozOA xwYXJkXHBsYWluXGZzMjAg JsEdZYd7ZANvoH2hXg3ybM UpaP1pyGYpXIbrZHXwQcjx OeCbr8NqHMVeo3XncSKwnI dzAExrDVMlaX5gsSkeouYs PbAwv7mkVDWcLSSbfPRha2 GxURTvPF8qYSnqFFC6KVBc NAQevD4xSXCrPPZsGVypNO ZsK6XamK92MN7saTEyqI0m XW7zXSLbHXHyoJZeIPPuDM 1eEELzXQZat3ebFT7wOOY4 cmluZyAxIGNtLiAgVGhlIG T0H4obhA5cPZ6smnnsdbEa cyBpbmtlZCBpbiBibGFjay 2xXFReTAFqlJWakS2zemEc etN6skaqOGO4YLYjRA2hXQ HifAIfhZQ7TLFoZW93hYQc iGxqtL5wo38dQMOsk2GvbX RlLiBccGFyfQ== [employer] Work Phone: Pathology report final diagnosis Narrative e7uzkZLnKCCiuRPcUFbwKV fmzcVhWIHfhSRtA1Uhluft PUfrXM3yHN5vwYfgmWUxpR FtAFXxKxRlr0vit971eWUj r5ffRRWIZIvsEHUEMPu8mP siZ12sr8Y7EkubL97hfPAb DYG1XFEjOVRwaIMzLDDkBO I4EVKtsDWoZ1hfQKRcVD0k tdgzDCpkSSowBRYboKU0CC LfwTUcH0IcQGRlXZdaTBSd bda4EdIkBa0xmFLuaViqOD xwYXJkXHBsYWluXGZzMjBc lIUvRHJdrJ6gLNesGxZix7 DcHDVqo2BlnTWdoEm6HKYj cez4WARjRbADt6MejnF3VD H1kjBhi86geEcrQSxlSeQz TT97tHP3GXUsAoJeRHthhZ Ojf5E0NI0tmVAnJ7TedLTy COUyeZ8faMLvbBNirQ== [employer] Work Phone: [employer] Work Phone: No Panel Informationon 07-11 Type of biopsy: tangential Informed consent: discussed and consent obtained Timeout: patient name, date of , surgical site, and procedure verified Anesthesia: the lesion was anesthetized in a standard fashion Anesthetic: 1% lidocaine w/ epinephrine 1-100,000 buffered w/ 8.4% NaHCO3 Instrument used: DermaBlade Outcome: patient tolerated procedure well Post-procedure details: wound care instructions given [facility] Office Visiton 07-11-2024 Follow-up visit [id number] Yessi Hatch 1945 [facility] Provider Department Center 07/11/2024 84519-UXPXGEORGINA CONRAD [facility] [place] None No family history on file Level of Service:77126 MD OFFICE/OUTPATIENT NEW MODERATE MDM 45 MINUTES (25) Reason for Visit and Comments: 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 Patient thoroughly educated about treatment with Efudex, including risks, benefits and detailed application instructions. The severity of your reaction to this medication cannot be predicted. It is normal to have some redness/ irritation and crusting, but to stop treatment if patient develops any pain, open sores, weeping, oozing or ulceration. If any issues with treatment, stop medication and contact office. The skin must be protected from sun exposure; use clothing, sunscreen, hats, etc. Apply 15-20 minutes before any other creams or makeup. Apply at least 1 hour before bedtime in order for medication to soak in. Do not get into eyes. Wash hands thoroughly after application. BIOPSY / SURGICAL AFTERCARE 1. If a dressing is in place, please leave it for 24 hours unless given other instructions. 2. After that time, remove the initial bandage, and cleanse the area with a mild, fragrance free soap such as Dove, Cetaphil, or CeraVe. 3. Apply Vaseline to the area and cover with a new bandage. Please do not use Neosporin, Polysporin, or Bacitracin, as these may cause unwanted allergic reactions in some patients, and are not necessary for good healing. 4. Repeat the above steps every day for 7 days unless otherwise directed by physician or nurse. 5. If any bleeding occurs, use a clean cotton or gauze, apply firm, direct pressure to the area for 10 to 15 minutes. If the bleeding does not stop, call our office at [phone]. 6. The wound should improve daily. If you notice any increased redness, swelling, drainage, warmth, or pain in the area, please notify our office. Please be advised that it can take up to 2 weeks for these sites to heal. In some patients it may take even longer depending on location (lower legs / feet) and / or if the patient has history of diabetes. Our office will notify you of the results in about 2 weeks. [facility] Progress Noteon 07-11-2024 Progress Note DATE OF SERVICE: 07/11/2024 PATIENT NAME: Yessi Hatch : 1945 AGE: 79 y.o. 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 male who presents for evaluation of spots on the scalp, face, neck and L ear x over 1 year. Pt states the lesions are scaly and bleed at time. Pt admits to picking at the lesion on the ear. Pt h/o numerous BCC and SCC. He was seeing a Manager Of Operations in [place] at [facility] but he retired a few years ago. Pt. Has had at least four surgeries for skin cancer. He has used fluorouracil. He had roya light treatment and this was painful for a week. Pt has seen numerous Dermatologists in the past. No personal h/o Melanoma. No f/h Melanoma. Pt has psoriatic arthritis and is on Inflectra and methotrexate x several years. His joint pain if better. He sees Dr. Shah in [place] twice a year. History of pacemaker/ defibrillator? No History of HIV/ Hep C? No Allergies to Lidocaine, Epinephrine, Latex or Adhesive? 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 Patient does use additional sun protection measures. REVIEW OF SYSTEMS: General/Constitutional Feels well; denies h/o fatigue, weight change, night sweats, fevers or chills. Lymphatic Denies swollen lymph nodes. Dermatologic As per HPI; denies new rashes, itching, hair loss, skin or nail changes. There were no vitals filed for this visit. GENERAL APPEARANCE:?Alert & oriented x3, pleasant. Well developed, well nourished. PSYCH: appropriate mood and affect 1. Neoplasm of uncertain behavior of skin Left [place] 1.5cm hemorrhagic nodule Skin Biopsy Type of biopsy: tangential Informed consent: discussed and consent obtained Timeout: patient name, date of , surgical site, and procedure verified Anesthesia: the lesion was anesthetized in a standard fashion Anesthetic: 1% lidocaine w/ epinephrine 1-100,000 buffered w/ 8.4% NaHCO3 Instrument used: DermaBlade Outcome: patient tolerated procedure well Post-procedure details: wound care instructions given Specimen A - Tissue exam Differential Diagnosis: BCC vs SCC Check Margins: No Biopsy recommended. Patient expresses understanding and is in agreement with the plan. Biopsy (x1) obtained today. Patient educated that we will call with the biopsy results within 2 weeks. Care instructions reviewed and written instructions provided to patient. 2. Actinic keratoses (3) Head - Anterior (Face), Neck - Anterior, Scalp Crusted papules [x]Chronic []Acute []Stable [x]Flaring/Exacerbatio n Patient educated on actinic keratosis and the possibility of transformation into SCC. Treatment options are discussed with risks and benefits reviewed. Patient is agreeable to start treatment with Efudex (fluorouracil) Rx: Efudex (fluorouracil) Cream Apply a very thin layer to the scalp, face and neck twice daily x 6 weeks. (Treating in sections) Patient thoroughly educated about treatment with Efudex, including risks, benefits and detailed application instructions. The severity of your reaction to this medication cannot be predicted. It is normal to have some redness/ irritation and crusting, but to stop treatment if patient develops any pain, open sores, weeping, oozing or ulceration. If any issues with treatment, stop medication and contact office. The skin must be protected from sun exposure; use clothing, sunscreen, hats, etc. Apply 15-20 minutes before any other creams or makeup. Apply at least 1 hour before bedtime in order for medication to soak in. Do not get into eyes. Wash hands thoroughly after application. fluorouracil (Efudex) 5 % cream - Head - Anterior (Face), Neck - Anterior, Scalp Apply a thin layer to affected areas bid x 6 weeks Orders Placed This Encounter Medications fluorouracil (Efudex) 5 % cream Sig: Apply a thin layer to affected areas bid x 6 weeks Dispense: 120 g Refill: 3 Follow up in about 4 months (around 11/10/2024) for AK f/u. Georgina Moore MD 07/11/24 7:08 AM REFERRING MD: [facility] Absolute lymphocyte countOrd ered By: Coco Shah on 02-21-2024 Lymphocytes Auto (Unsp spec) [#/Vol] 1.27 10*3/uL 0.83-4.51 [facility] Automated lymphocyte count a s percentage of total leukocytesOrdered By: Coco Shah on 02-21-2024 Lymphocytes/100 WBC Auto (Unsp spec) 23.5 % 19-41 [facility] Basophil percentageOrdered B y: Coco Shah on 02-21-2024 Basophils/100 WBC (Bld) 0.9 % 0-1 [facility] Eosinophils/100 WBC (Bld) 10.4 % 0-5 [facility] Hemoglobin (Bld) [Mass/Vol] 12.7 g/dL 13.0-16.5 [facility] Monocytes/100 WBC (Bld) 14.2 % 0-10 [facility] Neutrophils (Bld) [#/Vol] 2.7 10*3/uL 2.0-7.7 [facility] Neutrophils/100 WBC (Bld) 50.4 % 47-70 [facility] WBC (Bld) [#/Vol] 5.4 10*3/uL 4.4-11.0 [facility] Determination of erythrocyte mean corpuscular volume (MCV)Ordered By: Coco Shah on 02-21-2024 MCV (RBC) [Entitic vol] 95.6 fL 80-94 [facility] Erythrocyte distribution wid th ratioOrdered By: Coco Shah on 02-21-2024 Erythrocyte distribution width (RBC) [Ratio] 14.7 % 11.6-14.6 [facility] Erythrocyte distribution wid th standard deviationOrdered By: Coco Shah on 02-21-2024 Erythrocyte distribution width (RBC) [Entitic vol] 50.7 fL 35.1-43.9 [facility] Erythrocyte sedimentation ra teOrdered By: Coco Shah on 02-21-2024 ESR (Bld) [Velocity] 3 mm/h 0-20 [facility] Hematocrit Auto (Bld) [Volum e fraction]Ordered By: Coco Shah on 02-21-2024 Hematocrit (Bld) [Volume fraction] 37.2 % 40-54 [facility] Immature granulocytes/100 WB C Auto (Bld)Ordered By: Coco Shah on 02-21-2024 Immature granulocytes/100 WBC (Bld) 0.600 % 0.0-0.9 [facility] Comment on above: IG% - Immature Granu locytes (promyelocytes, myelocytes and metamyelocytes) > 1% indicates that a LEFT SHIFT is Present. Laboratory - Chemistry and C hemistry - challengeOrdered By: Coco Shah on 02-21-2024 ALT [Catalytic activity/Vol] 33 U/L 16-61 [facility] Laboratory - Hematology and Cell countsOrdered By: Coco Shah on 02-21-2024 MCH (RBC) [Entitic mass] 32.6 pg 27.0-32.0 [facility] MCHC (RBC) [Mass/Vol] 34.1 g/dL 32-36 [facility] Nucleated RBC/100 WBC (Bld) [Ratio] 0 % 0-5 [facility] Platelet mean volume (Bld) [Entitic vol] 9.7 fL 6.2-12.0 [facility] Platelets (Bld) [#/Vol] 218 10*3/uL 150-450 [facility] No Panel InformationOrdered By: Coco Shah on 02-21-2024 C-Reactive Protein Extended Range < 2.90 mg/L 0.0-3.0 [facility] Comment on above: C-Reactive Protein ( CRP) provides useful information for thediagnosis, therapy and monitoring of inflammatory processesand associated diseases. For the evaluation of Relative Riskfor Cardiovascular Disease, a High Sensitivity CRP (HSCRP)should be ordered. Estimated GFR (MDRD) Amer 62 mL/min >60 [facility] Comment on above: GFR Calc Estimated GFR (MDRD) Non-Af Amer 51 mL/min >60 [facility] Comment on above: Non- GFR Calc RBC Auto (Bld) [#/Vol]Ordere d By: Coco Shah on 02-21-2024 RBC (Bld) [#/Vol] 3.89 10*6/uL 4.6-6.2 [facility] Serum or plasma creatinine m easurement (mass/volume)Ordered By: Coco Shah on 02-21-2024 Creatinine [Mass/Vol] 1.42 mg/dL 0.70-1.30 [facility] Comment on above: The validity of the calculated GFR & GFRAA in patients over 70 years has not been determined. Clinical correlation is essential. Thin prep Papanicolaou smear with manual screeningOrdered By: Coco Shah on 02-21-2024 Thin prep Papanicolaou smear with manual screening 27 U/L 15-37 [facility] Bacteria identified Cx Nom ( Wound)Ordered By: Patrick Rojas on 02-15-2024 Wound Culture Staphylococcus aureus [facility] Gram stain for investigation of transfusion reactionOrdered By: Patrick Rojas on 02-15-2024 Microscopic observation Gram stain Nom (Unsp spec) [facility] Absolute lymphocyte countOrd ered By: Zach Turner on 11-22-2023 Lymphocytes Auto (Unsp spec) [#/Vol] 1.29 10*3/uL 0.83-4.51 [facility] Basophil percentageOrdered B y: Zach Turner on 11-22-2023 Basophils/100 WBC (Bld) 0.5 % 0-1 [facility] Bilirubin [Mass/Vol] 1.10 mg/dL 0.20-1.00 [facility] Comment on above: For patients on eltr ombopag therapy, use of Dimension Ramer TBIL is not recommended. Chloride [Moles/Vol] 106 mmol/L 98-107 [facility] Eosinophils/100 WBC (Bld) 7.5 % 0-5 [facility] Glucose [Mass/Vol] 144 mg/dL 74-106 [facility] Comment on above: Fasting Glucose resu lt greater than or equal to 126 mg/dL suggests DIABETES MELLITUS per A.D.A. criteria. Neutrophils (Bld) [#/Vol] 5.1 10*3/uL 2.0-7.7 [facility] Neutrophils/100 WBC (Bld) 66.1 % 47-70 [facility] Potassium [Moles/Vol] 3.9 mmol/L 3.5-5.1 [facility] Protein [Mass/Vol] 7.3 g/dL 6.4-8.2 [facility] Sodium [Moles/Vol] 139 mmol/L 136-145 [facility] WBC (Bld) [#/Vol] 7.7 10*3/uL 4.4-11.0 [facility] Blood erythrocytes count (nu mber/volume)Ordered By: Zach Turner on 11-22-2023 RBC (Bld) [#/Vol] 4.90 10*6/uL 4.6-6.2 [facility] Blood hemoglobin measurement (mass/volume)Ordered By: Zach Turner on 11-22-2023 Hemoglobin (Bld) [Mass/Vol] 14.9 g/dL 13.0-16.5 [facility] Blood lymphocytes/100 leukoc ytesOrdered By: Zach Turner on 11-22-2023 Lymphocytes/100 WBC (Bld) 16.7 % 19-41 [facility] Blood monocytes/100 leukocyt esOrdered By: Zach Turner on 11-22-2023 Monocytes/100 WBC (Bld) 8.4 % 0-10 [facility] Blood platelet mean volumeOr dered By: Zach Turner on 11-22-2023 Platelet mean volume (Bld) [Entitic vol] 10.4 fL 6.2-12.0 [facility] Determination of erythrocyte mean corpuscular volume (MCV)Ordered By: Zach Turner on 11-22-2023 MCV (RBC) [Entitic vol] 91.8 fL 80-94 [facility] Erythrocyte sedimentation ra teOrdered By: Zach Turner on 11-22-2023 ESR (Bld) [Velocity] 2 mm/h 0-20 [facility] Hematocrit Auto (Bld) [Volum e fraction]Ordered By: Zach Turner on 11-22-2023 Hematocrit (Bld) [Volume fraction] 45.0 % 40-54 [facility] Laboratory - Chemistry and C hemistry - challengeOrdered By: Zach Turner on 11-22-2023 ALP [Catalytic activity/Vol] 77 U/L 45-117 [facility] ALT [Catalytic activity/Vol] 54 U/L 16-61 [facility] CO2 [Moles/Vol] 29.0 mmol/L 21.0-32.0 [facility] Globulin (S) [Mass/Vol] 3.7 g/dL 2.2-4.2 [facility] Urea nitrogen/Creatinine [Mass ratio] 16.5 mg/mg 10-20 [facility] Laboratory - Hematology and Cell countsOrdered By: Zach Turner on 11-22-2023 Erythrocyte distribution width (RBC) [Entitic vol] 45.8 fL 35.1-43.9 [facility] Erythrocyte distribution width (RBC) [Ratio] 13.6 % 11.6-14.6 [facility] Immature granulocytes/100 WBC (Bld) 0.800 % 0.0-0.9 [facility] Comment on above: IG% - Immature Granu locytes (promyelocytes, myelocytes and metamyelocytes) > 1% indicates that a LEFT SHIFT is Present. MCH (RBC) [Entitic mass] 30.4 pg 27.0-32.0 [facility] Nucleated RBC/100 WBC (Bld) [Ratio] 0 % 0-5 [facility] MCHC Auto (RBC) [Mass/Vol]Or dered By: Zach Turner on 11-22-2023 MCHC (RBC) [Mass/Vol] 33.1 g/dL 32-36 [facility] No Panel InformationOrdered By: Zach Turner on 11-22-2023 Estimated GFR (MDRD) Amer 63 mL/min >60 [facility] Comment on above: GFR Calc Estimated GFR (MDRD) Non-Af Amer 52 mL/min >60 [facility] Comment on above: Non- GFR Calc Urine Microalbumin/Creatinine Ratio 235.6 mg/g CRE <30 [facility] Platelets bldOrdered By: Ksenia Turner on 11-22-2023 Platelets (Bld) [#/Vol] 189 10*3/uL 150-450 [facility] Serum or plasma C reactive p rotein measurement (mass/volume)Ordered By: Zach Turner on 11-22-2023 CRP [Mass/Vol] mg/L 0.0-3.0 [facility] Comment on above: C-Reactive Protein ( CRP) provides useful information for thediagnosis, therapy and monitoring of inflammatory processesand associated diseases. For the evaluation of Relative Riskfor Cardiovascular Disease, a High Sensitivity CRP (HSCRP)should be ordered. Serum or plasma albumin amadou urement (mass/volume)Ordered By: Zach Turner on 11-22-2023 Albumin [Mass/Vol] 3.6 g/dL 3.2-5.0 [facility] Serum or plasma albumin/glob ulin mass ratioOrdered By: Zach Turner on 11-22-2023 Albumin/Globulin [Mass ratio] 1.0 {ratio} 0.9-2.4 [facility] Serum or plasma calcium amadou urement (mass/volume)Ordered By: Zach Turner on 11-22-2023 Calcium [Mass/Vol] 9.5 mg/dL 8.5-10.1 [facility] Serum or plasma creatinine m easurement (mass/volume)Ordered By: Zach Turner on 11-22-2023 Creatinine [Mass/Vol] 1.39 mg/dL 0.70-1.30 [facility] Comment on above: The validity of the calculated GFR & GFRAA in patients over 70 years has not been determined. Clinical correlation is essential. Serum or plasma urea nitroge n measurement (mass/volume)Ordered By: Zach Turner on 11-22-2023 Urea nitrogen [Mass/Vol] 23 mg/dL 7-18 [facility] Thin prep Papanicolaou smear with manual screeningOrdered By: Zach Turner on 11-22-2023 Thin prep Papanicolaou smear with manual screening 34 U/L 15-37 [facility] Thin prep Papanicolaou smear with manual screening 4 5-15 [facility] Thin prep Papanicolaou smear with manual screening 344.0 mg/L NO RANGE EST. [facility] Urine creatinine measurement (mass/volume)Ordered By: Zach Turner on 11-22-2023 Creatinine (U) [Mass/Vol] 146.00 mg/dL NO RANGE EST. [facility] Whole blood hemoglobin A1c/t otal hemoglobin ratio (mass fraction)Ordered By: Zach Turner on 11-22-2023 HbA1c (Bld) [Mass fraction] 7.0 % 3.8-5.6 [facility] Comment on above: Normal < 5.7 % Predi abetic 5.7 - 6.4 % Diabetic >or= 6.5 % Please note range changes. Absolute lymphocyte countOrd ered By: Coco Shah on 08-22-2023 Lymphocytes Auto (Unsp spec) [#/Vol] 2.02 10*3/uL 0.83-4.51 [facility] Basophil percentageOrdered B y: Coco Shah on 08-22-2023 Basophils/100 WBC (Bld) 0.9 % 0-1 [facility] Eosinophils/100 WBC (Bld) 8.8 % 0-5 [facility] Neutrophils (Bld) [#/Vol] 4.1 10*3/uL 2.0-7.7 [facility] Neutrophils/100 WBC (Bld) 52.6 % 47-70 [facility] WBC (Bld) [#/Vol] 7.8 10*3/uL 4.4-11.0 [facility] Blood erythrocytes count (nu mber/volume)Ordered By: Coco Shah on 08-22-2023 RBC (Bld) [#/Vol] 3.87 10*6/uL 4.6-6.2 [facility] Blood hemoglobin measurement (mass/volume)Ordered By: Coco Shah on 08-22-2023 Hemoglobin (Bld) [Mass/Vol] 13.2 g/dL 13.0-16.5 [facility] Blood lymphocytes/100 leukoc ytesOrdered By: Coco Shah on 08-22-2023 Lymphocytes/100 WBC (Bld) 26.0 % 19-41 [facility] Blood monocytes/100 leukocyt esOrdered By: Coco Shah on 08-22-2023 Monocytes/100 WBC (Bld) 11.3 % 0-10 [facility] Blood platelet mean volumeOr dered By: Coco Shah on 08-22-2023 Platelet mean volume (Bld) [Entitic vol] 10.4 fL 6.2-12.0 [facility] Determination of erythrocyte mean corpuscular volume (MCV)Ordered By: Coco Shah on 08-22-2023 MCV (RBC) [Entitic vol] 98.4 fL 80-94 [facility] Erythrocyte sedimentation ra teOrdered By: Coco Shah on 08-22-2023 ESR (Bld) [Velocity] 10 mm/h 0-20 [facility] Hematocrit Auto (Bld) [Volum e fraction]Ordered By: Coco Shah on 08-22-2023 Hematocrit (Bld) [Volume fraction] 38.1 % 40-54 [facility] Laboratory - Chemistry and C hemistry - challengeOrdered By: Coco Shah on 08-22-2023 ALT [Catalytic activity/Vol] 57 U/L 16-61 [facility] Laboratory - Hematology and Cell countsOrdered By: Coco Shah on 08-22-2023 Erythrocyte distribution width (RBC) [Entitic vol] 49.7 fL 35.1-43.9 [facility] Erythrocyte distribution width (RBC) [Ratio] 14.6 % 11.6-14.6 [facility] Immature granulocytes/100 WBC (Bld) 0.400 % 0.0-0.9 [facility] Comment on above: IG% - Immature Granu locytes (promyelocytes, myelocytes and metamyelocytes) > 1% indicates that a LEFT SHIFT is Present. MCH (RBC) [Entitic mass] 34.1 pg 27.0-32.0 [facility] Nucleated RBC/100 WBC (Bld) [Ratio] 0 % 0-5 [facility] MCHC Auto (RBC) [Mass/Vol]Or dered By: Coco Shah on 08-22-2023 MCHC (RBC) [Mass/Vol] 34.6 g/dL 32-36 [facility] No Panel InformationOrdered By: Coco Shah on 08-22-2023 Estimated GFR (MDRD) Amer 73 mL/min >60 [facility] Comment on above: GFR Calc Estimated GFR (MDRD) Non-Af Amer 60 mL/min >60 [facility] Comment on above: Non- GFR Calc Platelets bldOrdered By: Santino Shah on 08-22-2023 Platelets (Bld) [#/Vol] 303 10*3/uL 150-450 [facility] Serum or plasma C reactive p rotein measurement (mass/volume)Ordered By: Coco Shah on 08-22-2023 CRP [Mass/Vol] mg/L 0.0-3.0 [facility] Comment on above: C-Reactive Protein ( CRP) provides useful information for thediagnosis, therapy and monitoring of inflammatory processesand associated diseases. For the evaluation of Relative Riskfor Cardiovascular Disease, a High Sensitivity CRP (HSCRP)should be ordered. Serum or plasma creatinine m easurement (mass/volume)Ordered By: Coco Shah on 08-22-2023 Creatinine [Mass/Vol] 1.23 mg/dL 0.70-1.30 [facility] Comment on above: The validity of the calculated GFR & GFRAA in patients over 70 years has not been determined. Clinical correlation is essential. Thin prep Papanicolaou smear with manual screeningOrdered By: Coco Shah on 08-22-2023 Thin prep Papanicolaou smear with manual screening 36 U/L 15-37 [facility] Bacteria identified Cx Nom ( Wound)Ordered By: Patrick Rojas on 05-10-2023 Wound Culture Staphylococcus lugdunensis [facility] Wound Culture Staphylococcus aureus [facility] Gram stain for investigation of transfusion reactionOrdered By: Patrick Rojas on 05-10-2023 Microscopic observation Gram stain Nom (Unsp spec) [facility] Basophil percentageOrdered B y: Dr. Turner on 05-04-2023 Chloride [Moles/Vol] 110 mmol/L 98-107 [facility] Glucose [Mass/Vol] 186 mg/dL 74-106 [facility] Comment on above: Fasting Glucose resu lt greater than or equal to 126 mg/dL suggests DIABETES MELLITUS per A.D.A. criteria. Potassium [Moles/Vol] 4.1 mmol/L 3.5-5.1 [facility] Sodium [Moles/Vol] 141 mmol/L 136-145 [facility] Laboratory - Chemistry and C hemistry - challengeOrdered By: Dr. Turner on 05-04-2023 CO2 [Moles/Vol] 28.0 mmol/L 21.0-32.0 [facility] Urea nitrogen/Creatinine [Mass ratio] 23.5 mg/mg 10-20 [facility] No Panel InformationOrdered By: Dr. Turner on 05-04-2023 Estimated GFR (MDRD) Amer 79 mL/min >60 [facility] Comment on above: GFR Calc Estimated GFR (MDRD) Non-Af Amer 65 mL/min >60 [facility] Comment on above: Non- GFR Calc Serum or plasma calcium amadou urement (mass/volume)Ordered By: Dr. Turner on 05-04-2023 Calcium [Mass/Vol] 9.2 mg/dL 8.5-10.1 [facility] Serum or plasma creatinine m easurement (mass/volume)Ordered By: Dr. Turner on 05-04-2023 Creatinine [Mass/Vol] 1.15 mg/dL 0.70-1.30 [facility] Comment on above: The validity of the calculated GFR & GFRAA in patients over 70 years has not been determined. Clinical correlation is essential. Serum or plasma urea nitroge n measurement (mass/volume)Ordered By: Dr. Turner on 05-04-2023 Urea nitrogen [Mass/Vol] 27 mg/dL 7-18 [facility] Thin prep Papanicolaou smear with manual screeningOrdered By: Dr. Turner on 05-04-2023 Thin prep Papanicolaou smear with manual screening 3 5-15 [facility] Absolute lymphocyte countOrd ered By: Dr. Hernández on 04-26-2023 Lymphocytes Auto (Unsp spec) [#/Vol] 1.68 10*3/uL 0.83-4.51 [facility] Basophil percentageOrdered B y: Dr. Hernández on 04-26-2023 Basophils/100 WBC (Bld) 0.9 % 0-1 [facility] Eosinophils/100 WBC (Bld) 7.0 % 0-5 [facility] Neutrophils (Bld) [#/Vol] 4.8 10*3/uL 2.0-7.7 [facility] Neutrophils/100 WBC (Bld) 60.6 % 47-70 [facility] WBC (Bld) [#/Vol] 7.9 10*3/uL 4.4-11.0 [facility] Blood erythrocytes count (nu mber/volume)Ordered By: Dr. Hernández on 04-26-2023 RBC (Bld) [#/Vol] 4.10 10*6/uL 4.6-6.2 [facility] Blood hemoglobin measurement (mass/volume)Ordered By: Dr. Hernández on 04-26-2023 Hemoglobin (Bld) [Mass/Vol] 13.4 g/dL 13.0-16.5 [facility] Blood lymphocytes/100 leukoc ytesOrdered By: Dr. Hernández on 04-26-2023 Lymphocytes/100 WBC (Bld) 21.3 % 19-41 [facility] Blood monocytes/100 leukocyt esOrdered By: Dr. Hernández on 04-26-2023 Monocytes/100 WBC (Bld) 9.8 % 0-10 [facility] Blood platelet mean volumeOr dered By: Dr. Hernández on 04-26-2023 Platelet mean volume (Bld) [Entitic vol] 10.3 fL 6.2-12.0 [facility] Determination of erythrocyte mean corpuscular volume (MCV)Ordered By: Dr. Hernández on 04-26-2023 MCV (RBC) [Entitic vol] 98.8 fL 80-94 [facility] Erythrocyte sedimentation ra teOrdered By: Dr. Hernández on 04-26-2023 ESR (Bld) [Velocity] 10 mm/h 0-20 [facility] Hematocrit Auto (Bld) [Volum e fraction]Ordered By: Dr. Hernández on 04-26-2023 Hematocrit (Bld) [Volume fraction] 40.5 % 40-54 [facility] Laboratory - Chemistry and C hemistry - challengeOrdered By: Dr. Hernández on 04-26-2023 ALT [Catalytic activity/Vol] 38 U/L 16-61 [facility] Laboratory - Hematology and Cell countsOrdered By: Dr. Hernández on 04-26-2023 Erythrocyte distribution width (RBC) [Entitic vol] 47.6 fL 35.1-43.9 [facility] Erythrocyte distribution width (RBC) [Ratio] 13.4 % 11.6-14.6 [facility] Immature granulocytes/100 WBC (Bld) 0.400 % 0.0-0.9 [facility] Comment on above: IG% - Immature Granu locytes (promyelocytes, myelocytes and metamyelocytes) > 1% indicates that a LEFT SHIFT is Present. MCH (RBC) [Entitic mass] 32.7 pg 27.0-32.0 [facility] Nucleated RBC/100 WBC (Bld) [Ratio] 0 % 0-5 [facility] MCHC Auto (RBC) [Mass/Vol]Or dered By: Dr. Hernández on 04-26-2023 MCHC (RBC) [Mass/Vol] 33.1 g/dL 32-36 [facility] No Panel InformationOrdered By: Dr. Hernández on 04-26-2023 Estimated GFR (MDRD) Amer 56 mL/min >60 [facility] Comment on above: GFR Calc Estimated GFR (MDRD) Non-Af Amer 46 mL/min >60 [facility] Comment on above: Non- GFR Calc Prostate Specific Antigen Total 1.28 ng/mL 0.0-4.0 [facility] Comment on above: This test was perfor med using the TPSA assay method for the[employer] [facility] chemistry system. Values obtained with differentassay methods cannot be used interchangably.When changing PSA assays in the course of monitoring apatient, additional sequential testing should be carriedout to confirm baseline values. Platelets bldOrdered By: Dr. Hernández on 04-26-2023 Platelets (Bld) [#/Vol] 317 10*3/uL 150-450 [facility] Serum or plasma C reactive p rotein measurement (mass/volume)Ordered By: Dr. Hernández on 04-26-2023 CRP [Mass/Vol] mg/L 0.0-3.0 [facility] Comment on above: C-Reactive Protein ( CRP) provides useful information for thediagnosis, therapy and monitoring of inflammatory processesand associated diseases. For the evaluation of Relative Riskfor Cardiovascular Disease, a High Sensitivity CRP (HSCRP)should be ordered. Serum or plasma creatinine m easurement (mass/volume)Ordered By: Dr. Hernández on 04-26-2023 Creatinine [Mass/Vol] 1.55 mg/dL 0.70-1.30 [facility] Comment on above: The validity of the calculated GFR & GFRAA in patients over 70 years has not been determined. Clinical correlation is essential. Thin prep Papanicolaou smear with manual screeningOrdered By: Dr. Hernández on 04-26-2023 Thin prep Papanicolaou smear with manual screening 24 U/L 15-37 [facility] Bacteria identified Cx Nom ( Wound)Ordered By: Dr. Rojas on 03-31-2023 Wound Culture Pseudomonas putida [facility] Gram stain for investigation of transfusion reactionOrdered By: Dr. Rojas on 03-30-2023 Microscopic observation Gram stain Nom (Unsp spec) [facility] Bacteria identified Cx Nom ( Wound)Ordered By: Patrick Rojas on 03-29-2023 Wound Culture Pseudomonas putida [facility] Gram stain for investigation of transfusion reactionOrdered By: Patrick Rojas on 03-29-2023 Microscopic observation Gram stain Nom (Unsp spec) [facility] OPERATIVE PROCEDURESon 03-28 OPERATIVE PROCEDURES [facility] OPERATIVE REPORT NAME ACCOUNT SEX AGE ADMIT DISCHARGE PT MED. RECORD# NUMBER DATE DATE TYPE LESLY, [id number] M 77 03/04/23 2 YESSI [id number] ROOM: [facility] DATE OF : 1945 DICTATING PHYSICIAN: Patrick Rojas DATE OF SURGERY: March 04, 2023 SURGEON: Patrick Rojas DPM SPECIAL TESTER: None. ANESTHESIOLOGIST: Braxton Ashby CRNA ANESTHETIC: MAC with local 10% of 1% lidocaine plain. 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 (2) Nonhealing ulceration of the left second toe. (3) Diabetes mellitus with peripheral neuropathy. 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 (2) Nonhealing ulceration of the left second toe. (3) Diabetes mellitus with peripheral neuropathy. OPERATION PERFORMED: (1) Amputation of left hallux. (2) Partial amputation of left second toe (at the distal interphalangeal joint). COMPLICATIONS: None. ESTIMATED BLOOD LOSS: Minimal. HEMOSTASIS: Pneumatic ankle tourniquet at 250 mmHg and electrocautery. DESCRIPTION OF OPERATION: Under mild sedation, the patient was brought into the OR and placed on the operating room table in the supine position. A pneumatic ankle tourniquet was placed about the patient's left ankle. Following IV sedation, local anesthesia was obtained about the toes one and two of the left foot. The foot was scrubbed, prepped and draped in the usual aseptic manner, and then the foot was elevated to exsanguinate the limb, and the pneumatic ankle tourniquet was inflated to 250 mmHg. Attention was then directed to the left hallux where two converging semielliptical Page 1 of 3 YESSI HATCH Operative Report YESSI HATCH : 1945 incisions were made with the apex pointing dorsal, proximal and plantar at the ulceration. The incision was deepened through sharp and blunt dissection, and care was taken to retract all vital neurovascular structures. All superficial bleeding vessels were cauterized and ligated as necessary. 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 The entire plantar aspect of the first metacarpophalangeal joint had darkened fernandes brown tissue, which was sharply debrided. The wound was flushed with copious amounts of normal sterile saline as the hallux was disarticulated at the first metatarsophalangeal joint and passed from the operative field. The head of the first metatarsal remained intact, but there was a significant amount of denuding of the cartilage. After all necrotic tissue was removed, deep tissues were reapproximated and coapted utilizing 3-0 Vicryl sutures. It should be noted that the ulceration was encompassed through the incision and was removed. Subcutaneous tissue was reapproximated and coapted utilizing 3-0 Vicryl sutures, and the skin was reapproximated and coapted utilizing 3-0 Prolene sutures. Attention was then directed to the left second toe where a fishmouth type of incision was made at the distal aspect of the second toe at the distal interphalangeal joint. The incision was deepened through sharp dissection down to the level of the joint and was disarticulated and passed from the operative field. The wound was flushed with copious amounts of normal sterile saline. There was no necrotic tissue within this incision, and the plantar flap was then pulled dorsally and the skin was reapproximated and coapted utilizing 3-0 Prolene sutures. Upon completion of the procedure, a postoperative block consisting of 6 mL of 1% lidocaine plain was infiltrated about both the surgical sites. A sterile compressive dressing consisting of Xeroform, 4x4's, and Caty was applied. Kerlix was then applied, and the pneumatic ankle tourniquet was deflated and a prompt hyperemic response was noted to the remaining digits of the left foot. The patient tolerated the procedure well, and an Pham wrap was applied. He was then transferred to the preoperative unit. Following a period of postoperative monitoring, he will be discharged home with written and oral postoperative instructions. He is to keep the dressings clean, dry, and intact, avoid excessive ambulation, and rest and elevate the left foot with no ice. He is to wear surgical shoe at all times while ambulating, focusing weightbearing on the heel. Contact Dr. Rojas for all postoperative care and if any problems arise. Postoperative pain prescription was written for Tylenol #3 as a precautionary measure. Dictated By: Patrick Rojas DPM 03/04/23 09:04 JOB #: [id number] Transcribed By: am Page 2 of 3 YESSI HATCH Operative Report YESSI HATCH : 1945 03/04/23 10:09 Electronically signed by: E-SIGN ALEXANDREA (more content not included)... [facility] Final Surgical Pathology Rep sadiq 03-09-2023 Final Surgical Pathology Report . Pathology Reports Accession: Collected Date/Time: Received Date/Time: Pathologist: [id number] 03/04/2023 12:00 EDT 03/07/2023 10:00 EDT PIETER MAGANA MD Final Surgical Pathology Report DIAGNOSIS: A. LEFT FIRST TOE, AMPUTATION SPECIMEN: - SKIN AND SOFT TISSUE OF RESECTION MARGINS VIABLE. B. LEFT SECOND TOE, AMPUTATION SPECIMEN: - CUTANEOUS ULCERATION IDENTIFIED. SKIN AND SOFT TISSUE RESECTION MARGIN APPEAR VIABLE COMMENT: [facility] - [id number] CLINICAL INFORMATION: NON-PRESSURE CHRONIC ULCER OF OTHER PART OF LEFT FOOT WITH FAT LAYER EXPOSED SPECIMEN: A LEFT FIRST TOE AMPUTATION B LEFT SECOND TOE AMPUTATION GROSS DESCRIPTION: A. Received in formalin, labeled with the patients name, Case #[id number], and left first toe is a amputated left great toe measuring 5.2 x 3.9 x 4.1 cm. Soft tissue excision margin appears viable. Extending beyond the margin is a cup-shaped disarticulated metatarsal bone measuring 2.5 x 2.5 x 2.5 cm. The skin surface appears to have an area of possible scarring on the dorsal surface measuring 1 x 1 cm just beneath the toenail. RS -2, A1 -soft tissue margin, A2 -area of possible skin scar and underlying bone following decalcification. B. Received in formalin labeled left second toe is the distal end of a left second toe measuring 2.2 x 1.5 x 1.4 cm. A total nail is identified measuring 0.8 x 0.4 cm. Soft tissue margin appears grossly viable. At the skin edge is a possible ulcerated area measuring 0.5 x 0.3 cm. RS -2, B1-soft tissue margin, B2 - possible ulcerated area and underlying bone following decalcification. Dictated by LATONIA ZULETA MICROSCOPIC DESCRIPTION: The microscopic examination is performed, except in the case of Gross Only. Electronically Signed by Pathology Report verified by [facility] PIETER MAGANA Sign out Date: 03/09/2023 10:52 Performing Lab: [facility], [address] [place] [address] Pathology Dept Normal [facility] ([place]) BUNon 03-03-2023 Urea nitrogen [Mass/Vol] 32 mg/dL High 7 - 18 [facility] Comment on above: Performed By: #### [id number] #### [facility],[address] [place] [address] CHEST 2 VIEWSon 03-03-2023 CHEST [address] [address] Patient: YESSI HATCH Phone#: : 1945 Age: 77 Gender: M Pt. Type: Out Account: [id number] Location: Ordering: PATRICK ROJAS Exam Date: 03/03/2023/14:45 Family Phys: ZACH TURNER Charge Code: 681399 Physician: [place]berg Order #: [id number] Dose#: PROCEDURE: X-RAY CHEST 2 VIEWS COMPARISON: None. INDICATIONS: Preoperative. FINDINGS: LUNGS: Normal. No significant pulmonary parenchymal abnormalities. VASCULATURE: Normal. Unremarkable pulmonary vasculature. CARDIAC: Normal. No cardiac silhouette abnormality or cardiomegaly. MEDIASTINUM: Normal. No visible mass or adenopathy. PLEURA: Normal. No effusion or pleural thickening. BONES: Mild degenerative changes of the spine OTHER: Negative. CONCLUSION: No acute disease. Dictated by: Joanna Ramirez MD on 03/03/2023 at 15:23 Approved by: Joanna Ramirez MD on 03/03/2023 at 15:25 Normal [facility] GLUCOSEon 03-03-2023 Glucose [Mass/Vol] 167 mg/dL High 74 - 106 [facility] Comment on above: Performed By: #### [id number] #### [place] [address] HEMATOCRITon 03-03-2023 Hematocrit (Bld) [Volume fraction] 40.4 % Normal 40.0 - 52.0 [facility] Comment on above: Performed By: #### 2 [id number] #### [place] [address] HEMOGLOBINon 03-03-2023 Hemoglobin (Bld) [Mass/Vol] 13.7 g/dL Normal 13.0 - 17.5 [facility] Comment on above: Performed By: #### 2 [id number] #### [facility],[address] [place] [address] Absolute lymphocyte countOrd ered By: Dr. Hendricks on 02-26-2023 Lymphocytes Auto (Unsp spec) [#/Vol] 1.78 10*3/uL 0.83-4.51 [facility] Basophil percentageOrdered B y: Dr. Hendricks on 02-26-2023 Basophils/100 WBC (Bld) 0.3 % 0-1 [facility] Chloride [Moles/Vol] 103 mmol/L 98-107 [facility] Eosinophils/100 WBC (Bld) 3.1 % 0-5 [facility] Glucose [Mass/Vol] 156 mg/dL 74-106 [facility] Comment on above: Fasting Glucose resu lt greater than or equal to 126 mg/dL suggests DIABETES MELLITUS per A.D.A. criteria. Neutrophils (Bld) [#/Vol] 6.2 10*3/uL 2.0-7.7 [facility] Neutrophils/100 WBC (Bld) 69.1 % 47-70 [facility] Potassium [Moles/Vol] 4.2 mmol/L 3.5-5.1 [facility] Sodium [Moles/Vol] 135 mmol/L 136-145 [facility] WBC (Bld) [#/Vol] 9.0 10*3/uL 4.4-11.0 [facility] Blood erythrocytes count (nu mber/volume)Ordered By: Dr. Hendricks on 02-26-2023 RBC (Bld) [#/Vol] 4.49 10*6/uL 4.6-6.2 [facility] Blood hemoglobin measurement (mass/volume)Ordered By: Dr. Hendricks on 02-26-2023 Hemoglobin (Bld) [Mass/Vol] 14.4 g/dL 13.0-16.5 [facility] Blood lymphocytes/100 leukoc ytesOrdered By: Dr. Hendricks on 02-26-2023 Lymphocytes/100 WBC (Bld) 19.7 % 19-41 [facility] Blood monocytes/100 leukocyt esOrdered By: Dr. Hendricks on 02-26-2023 Monocytes/100 WBC (Bld) 7.2 % 0-10 [facility] Blood platelet mean volumeOr dered By: Dr. Hendricks on 02-26-2023 Platelet mean volume (Bld) [Entitic vol] 10.6 fL 6.2-12.0 [facility] Determination of erythrocyte mean corpuscular volume (MCV)Ordered By: Dr. Hendricks on 02-26-2023 MCV (RBC) [Entitic vol] 97.6 fL 80-94 [facility] Hematocrit Auto (Bld) [Volum e fraction]Ordered By: Dr. Hendricks on 04-15-2023 Hematocrit (Bld) [Volume fraction] 43.8 % 40-54 [facility] Laboratory - Chemistry and C hemistry - challengeOrdered By: Dr. Hendricks on 02-26-2023 CO2 [Moles/Vol] 30.0 mmol/L 21.0-32.0 [facility] Urea nitrogen/Creatinine [Mass ratio] 18.0 mg/mg 10-20 [facility] Laboratory - Hematology and Cell countsOrdered By: Dr. Hendricks on 02-26-2023 Erythrocyte distribution width (RBC) [Entitic vol] 50.3 fL 35.1-43.9 [facility] Erythrocyte distribution width (RBC) [Ratio] 14.2 % 11.6-14.6 [facility] Immature granulocytes/100 WBC (Bld) 0.600 % 0.0-0.9 [facility] Comment on above: IG% - Immature Granu locytes (promyelocytes, myelocytes and metamyelocytes) > 1% indicates that a LEFT SHIFT is Present. MCH (RBC) [Entitic mass] 32.1 pg 27.0-32.0 [facility] Nucleated RBC/100 WBC (Bld) [Ratio] 0 % 0-5 [facility] MCHC Auto (RBC) [Mass/Vol]Or dered By: Dr. Hendricks on 02-26-2023 MCHC (RBC) [Mass/Vol] 32.9 g/dL 32-36 [facility] No Panel InformationOrdered By: Dr. Hendricks on 02-26-2023 Estimated Creatinine Clearance Calc 51.36 ml/min [facility] Estimated GFR (MDRD) Amer 70 mL/min >60 [facility] Comment on above: GFR Calc Estimated GFR (MDRD) Non-Af Amer 58 mL/min >60 [facility] Comment on above: Non- GFR Calc Platelets bldOrdered By: Dr. Hendricks on 02-26-2023 Platelets (Bld) [#/Vol] 222 10*3/uL 150-450 [facility] Serum or plasma calcium amadou urement (mass/volume)Ordered By: Dr. Hendricks on 02-26-2023 Calcium [Mass/Vol] 9.8 mg/dL 8.5-10.1 [facility] Serum or plasma creatinine m easurement (mass/volume)Ordered By: Dr. Hendricks on 02-26-2023 Creatinine [Mass/Vol] 1.28 mg/dL 0.70-1.30 [facility] Comment on above: The validity of the calculated GFR & GFRAA in patients over 70 years has not been determined. Clinical correlation is essential. Serum or plasma urea nitroge n measurement (mass/volume)Ordered By: Dr. Hendricks on 02-26-2023 Urea nitrogen [Mass/Vol] 23 mg/dL 7-18 [facility] Thin prep Papanicolaou smear with manual screeningOrdered By: Dr. Hendricks on 02-26-2023 Thin prep Papanicolaou smear with manual screening 2 5-15 [facility] Whole blood hemoglobin A1c/t otal hemoglobin ratio (mass fraction)Ordered By: Dr. Hendricks on 02-26-2023 HbA1c (Bld) [Mass fraction] 7.5 % 3.8-5.6 [facility] Comment on above: Normal < 5.7 % Predi abetic 5.7 - 6.4 % Diabetic >or= 6.5 % Please note range changes. Absolute lymphocyte countOrd ered By: Dr. White on 02-25-2023 Lymphocytes Auto (Unsp spec) [#/Vol] 1.54 10*3/uL 0.83-4.51 [facility] Basophil percentageOrdered B y: Dr. White on 02-25-2023 Basophils/100 WBC (Bld) 0.2 % 0-1 [facility] Chloride [Moles/Vol] 102 mmol/L 98-107 [facility] Eosinophils/100 WBC (Bld) 2.2 % 0-5 [facility] Glucose [Mass/Vol] 155 mg/dL 74-106 [facility] Comment on above: Fasting Glucose resu lt greater than or equal to 126 mg/dL suggests DIABETES MELLITUS per A.D.A. criteria. Neutrophils (Bld) [#/Vol] 10.5 10*3/uL 2.0-7.7 [facility] Neutrophils/100 WBC (Bld) 76.7 % 47-70 [facility] Potassium [Moles/Vol] 4.0 mmol/L 3.5-5.1 [facility] Sodium [Moles/Vol] 136 mmol/L 136-145 [facility] WBC (Bld) [#/Vol] 13.7 10*3/uL 4.4-11.0 [facility] Blood erythrocytes count (nu mber/volume)Ordered By: Dr. White on 02-25-2023 RBC (Bld) [#/Vol] 4.45 10*6/uL 4.6-6.2 [facility] Blood hemoglobin measurement (mass/volume)Ordered By: Dr. White on 02-25-2023 Hemoglobin (Bld) [Mass/Vol] 14.1 g/dL 13.0-16.5 [facility] Blood lymphocytes/100 leukoc ytesOrdered By: Dr. White on 02-25-2023 Lymphocytes/100 WBC (Bld) 11.3 % 19-41 [facility] Blood monocytes/100 leukocyt esOrdered By: Dr. White on 02-25-2023 Monocytes/100 WBC (Bld) 8.9 % 0-10 [facility] Blood platelet mean volumeOr dered By: Dr. White on 02-25-2023 Platelet mean volume (Bld) [Entitic vol] 10.6 fL 6.2-12.0 [facility] Determination of erythrocyte mean corpuscular volume (MCV)Ordered By: Dr. White on 02-25-2023 MCV (RBC) [Entitic vol] 96.4 fL 80-94 [facility] Erythrocyte sedimentation ra teOrdered By: Dr. White on 02-25-2023 ESR (Bld) [Velocity] 6 mm/h 0-20 [facility] Glucose Glucometer (BldC) [M ass/Vol]Ordered By: Dr. Hendricks on 02-25-2023 Glucose [Mass/Vol] 171 mg/dL 74-106 [facility] Comment on above: MANAGEMENT OF PATIEN T CARE PER NURSING PROTOCOL Hematocrit Auto (Bld) [Volum e fraction]Ordered By: Dr. White on 02-25-2023 Hematocrit (Bld) [Volume fraction] 42.9 % 40-54 [facility] Laboratory - Chemistry and C hemistry - challengeOrdered By: Dr. White on 02-25-2023 CO2 [Moles/Vol] 31.0 mmol/L 21.0-32.0 [facility] Urea nitrogen/Creatinine [Mass ratio] 20.6 mg/mg 10-20 [facility] Laboratory - Hematology and Cell countsOrdered By: Dr. White on 02-25-2023 Erythrocyte distribution width (RBC) [Entitic vol] 49.5 fL 35.1-43.9 [facility] Erythrocyte distribution width (RBC) [Ratio] 14.1 % 11.6-14.6 [facility] Immature granulocytes/100 WBC (Bld) 0.700 % 0.0-0.9 [facility] Comment on above: IG% - Immature Granu locytes (promyelocytes, myelocytes and metamyelocytes) > 1% indicates that a LEFT SHIFT is Present. MCH (RBC) [Entitic mass] 31.7 pg 27.0-32.0 [facility] Nucleated RBC/100 WBC (Bld) [Ratio] 0 % 0-5 [facility] MCHC Auto (RBC) [Mass/Vol]Or dered By: Dr. White on 02-25-2023 MCHC (RBC) [Mass/Vol] 32.9 g/dL 32-36 [facility] No Panel InformationOrdered By: Dr. White on 02-25-2023 Estimated Creatinine Clearance Calc 50.19 ml/min [facility] Estimated GFR (MDRD) Amer 68 mL/min >60 [facility] Comment on above: GFR Calc Estimated GFR (MDRD) Non-Af Amer 56 mL/min >60 [facility] Comment on above: Non- GFR Calc Platelets bldOrdered By: Dr. White on 02-25-2023 Platelets (Bld) [#/Vol] 229 10*3/uL 150-450 [facility] Serum or plasma C reactive p rotein measurement (mass/volume)Ordered By: Dr. White on 02-25-2023 CRP [Mass/Vol] 50.30 mg/L 0.0-3.0 [facility] Comment on above: C-Reactive Protein ( CRP) provides useful information for thediagnosis, therapy and monitoring of inflammatory processesand associated diseases. For the evaluation of Relative Riskfor Cardiovascular Disease, a High Sensitivity CRP (HSCRP)should be ordered. Serum or plasma calcium amadou urement (mass/volume)Ordered By: Dr. White on 02-25-2023 Calcium [Mass/Vol] 10.0 mg/dL 8.5-10.1 [facility] Serum or plasma creatinine m easurement (mass/volume)Ordered By: Dr. White on 02-25-2023 Creatinine [Mass/Vol] 1.31 mg/dL 0.70-1.30 [facility] Comment on above: The validity of the calculated GFR & GFRAA in patients over 70 years has not been determined. Clinical correlation is essential. Serum or plasma urea nitroge n measurement (mass/volume)Ordered By: Dr. White on 02-25-2023 Urea nitrogen [Mass/Vol] 27 mg/dL 7-18 [facility] Thin prep Papanicolaou smear with manual screeningOrdered By: Dr. White on 02-25-2023 Thin prep Papanicolaou smear with manual screening 3 5-15 [facility] Bacteria identified Cx Nom ( Wound)Ordered By: Dr. Rojas on 02-24-2023 Wound Culture Enterococcus faecalis [facility] Gram stain for investigation of transfusion reactionOrdered By: Dr. Rojas on 02-24-2023 Microscopic observation Gram stain Nom (Unsp spec) [facility] Bacteria identified Cx Nom ( Wound)Ordered By: Patrick Rojas on 02-22-2023 Wound Culture Enterococcus faecalis [facility] Gram stain for investigation of transfusion reactionOrdered By: Patrick Rojas on 02-22-2023 Microscopic observation Gram stain Nom (Unsp spec) [facility] Absolute lymphocyte countOrd ered By: Dr. Wilson on 11-25-2022 Lymphocytes Auto (Unsp spec) [#/Vol] 1.86 10*3/uL 0.83-4.51 [facility] Basophil percentageOrdered B y: Dr. Wilson on 11-25-2022 Basophils/100 WBC (Bld) 0.4 % 0-1 [facility] Eosinophils/100 WBC (Bld) 6.5 % 0-5 [facility] Neutrophils (Bld) [#/Vol] 3.7 10*3/uL 2.0-7.7 [facility] Neutrophils/100 WBC (Bld) 53.1 % 47-70 [facility] WBC (Bld) [#/Vol] 7.0 10*3/uL 4.4-11.0 [facility] Blood erythrocytes count (nu mber/volume)Ordered By: Dr. Wilson on 11-25-2022 RBC (Bld) [#/Vol] 4.38 10*6/uL 4.6-6.2 [facility] Blood hemoglobin measurement (mass/volume)Ordered By: Dr. Wilson on 11-25-2022 Hemoglobin (Bld) [Mass/Vol] 14.0 g/dL 13.0-16.5 [facility] Blood lymphocytes/100 leukoc ytesOrdered By: Dr. Wilson on 11-25-2022 Lymphocytes/100 WBC (Bld) 26.5 % 19-41 [facility] Blood monocytes/100 leukocyt esOrdered By: Dr. Wilson on 11-25-2022 Monocytes/100 WBC (Bld) 13.1 % 0-10 [facility] Blood platelet mean volumeOr dered By: Dr. Wilson on 11-25-2022 Platelet mean volume (Bld) [Entitic vol] 10.2 fL 6.2-12.0 [facility] Determination of erythrocyte mean corpuscular volume (MCV)Ordered By: Dr. Wilson on 11-25-2022 MCV (RBC) [Entitic vol] 94.5 fL 80-94 [facility] Erythrocyte sedimentation ra teOrdered By: Dr. Wilson on 11-25-2022 ESR (Bld) [Velocity] 9 mm/h 0-20 [facility] Hematocrit Auto (Bld) [Volum e fraction]Ordered By: Dr. Wilson on 11-25-2022 Hematocrit (Bld) [Volume fraction] 41.4 % 40-54 [facility] Laboratory - Chemistry and C hemistry - challengeOrdered By: Dr. Wilson on 11-25-2022 ALT [Catalytic activity/Vol] 59 U/L 16-61 [facility] Laboratory - Hematology and Cell countsOrdered By: Dr. Wilson on 11-25-2022 Erythrocyte distribution width (RBC) [Entitic vol] 45.5 fL 35.1-43.9 [facility] Erythrocyte distribution width (RBC) [Ratio] 13.2 % 11.6-14.6 [facility] Immature granulocytes/100 WBC (Bld) 0.400 % 0.0-0.9 [facility] Comment on above: IG% - Immature Granu locytes (promyelocytes, myelocytes and metamyelocytes) > 1% indicates that a LEFT SHIFT is Present. MCH (RBC) [Entitic mass] 32.0 pg 27.0-32.0 [facility] Nucleated RBC/100 WBC (Bld) [Ratio] 0 % 0-5 [facility] MCHC Auto (RBC) [Mass/Vol]Or dered By: Dr. Wilson on 11-25-2022 MCHC (RBC) [Mass/Vol] 33.8 g/dL 32-36 [facility] No Panel InformationOrdered By: Dr. Wilson on 11-25-2022 Estimated GFR (MDRD) Amer 68 mL/min >60 [facility] Comment on above: GFR Calc Estimated GFR (MDRD) Non-Af Amer 56 mL/min >60 [facility] Comment on above: Non- GFR Calc Platelets bldOrdered By: Dr. Wilson on 11-25-2022 Platelets (Bld) [#/Vol] 257 10*3/uL 150-450 [facility] Serum or plasma C reactive p rotein measurement (mass/volume)Ordered By: Dr. Wilson on 11-25-2022 CRP [Mass/Vol] mg/L 0.0-3.0 [facility] Comment on above: C-Reactive Protein ( CRP) provides useful information for thediagnosis, therapy and monitoring of inflammatory processesand associated diseases. For the evaluation of Relative Riskfor Cardiovascular Disease, a High Sensitivity CRP (HSCRP)should be ordered. Serum or plasma creatinine m easurement (mass/volume)Ordered By: Dr. Wilson on 11-25-2022 Creatinine [Mass/Vol] 1.31 mg/dL 0.70-1.30 [facility] Comment on above: The validity of the calculated GFR & GFRAA in patients over 70 years has not been determined. Clinical correlation is essential. Thin prep Papanicolaou smear with manual screeningOrdered By: Dr. Wilson on 11-25-2022 Thin prep Papanicolaou smear with manual screening 33 U/L 15-37 [facility] Anaerobic cultureOrdered By: Tanesha Alva on 10-31-2022 Bacteria identified Anaer cx Nom (Unsp spec) No anaerobic bacteria isolated. [facility] Bacteria identified Cx Nom ( Wound)Ordered By: Tanesha Alva on 10-29-2022 Wound Culture Staphylococcus lugdunensis [facility] Gram stain for investigation of transfusion reactionOrdered By: Tanesha Alva on 10-28-2022 Microscopic observation Gram stain Nom (Unsp spec) [facility] Bacteria identified Anaer cx Nom (Unsp spec)Ordered By: Tanesha Alva on 09-25-2022 Anaerobic Culture Anaerobic cocci [facility] Bacteria identified Cx Nom ( Wound)Ordered By: Tanesha Alva on 09-25-2022 Wound Culture Staphylococcus aureus [facility] Gram stain for investigation of transfusion reactionOrdered By: Tanesha Alva on 09-23-2022 Microscopic observation Gram stain Nom (Unsp spec) [facility] Absolute lymphocyte countOrd ered By: Dr. Wilson on 08-23-2022 Lymphocytes Auto (Unsp spec) [#/Vol] 1.68 10*3/uL 0.83-4.51 [facility] Basophil percentageOrdered B y: Dr. Wilson on 08-23-2022 Basophils/100 WBC (Bld) 0.5 % 0-1 [facility] Eosinophils/100 WBC (Bld) 7.2 % 0-5 [facility] Neutrophils (Bld) [#/Vol] 4.3 10*3/uL 2.0-7.7 [facility] Neutrophils/100 WBC (Bld) 58.2 % 47-70 [facility] WBC (Bld) [#/Vol] 7.5 10*3/uL 4.4-11.0 [facility] Blood erythrocytes count (nu mber/volume)Ordered By: Dr. Wilson on 08-23-2022 RBC (Bld) [#/Vol] 4.08 10*6/uL 4.6-6.2 [facility] Blood hemoglobin measurement (mass/volume)Ordered By: Dr. Wilson on 08-23-2022 Hemoglobin (Bld) [Mass/Vol] 13.7 g/dL 13.0-16.5 [facility] Blood lymphocytes/100 leukoc ytesOrdered By: Dr. Wilson on 08-23-2022 Lymphocytes/100 WBC (Bld) 22.5 % 19-41 [facility] Blood monocytes/100 leukocyt esOrdered By: Dr. Wilson on 08-23-2022 Monocytes/100 WBC (Bld) 11.1 % 0-10 [facility] Blood platelet mean volumeOr dered By: Dr. Wilson on 08-23-2022 Platelet mean volume (Bld) [Entitic vol] 10.9 fL 6.2-12.0 [facility] Determination of erythrocyte mean corpuscular volume (MCV)Ordered By: Dr. Wilson on 08-23-2022 MCV (RBC) [Entitic vol] 98.5 fL 80-94 [facility] Erythrocyte sedimentation ra teOrdered By: Dr. Wilson on 08-23-2022 ESR (Bld) [Velocity] 5 mm/h 0-20 [facility] Hematocrit Auto (Bld) [Volum e fraction]Ordered By: Dr. Wilson on 08-23-2022 Hematocrit (Bld) [Volume fraction] 40.2 % 40-54 [facility] Laboratory - Chemistry and C hemistry - challengeOrdered By: Dr. Wilson on 08-23-2022 ALT [Catalytic activity/Vol] 47 U/L 16-61 [facility] Laboratory - Hematology and Cell countsOrdered By: Dr. Wilson on 08-23-2022 Erythrocyte distribution width (RBC) [Entitic vol] 48.3 fL 35.1-43.9 [facility] Erythrocyte distribution width (RBC) [Ratio] 13.6 % 11.6-14.6 [facility] Immature granulocytes/100 WBC (Bld) 0.500 % 0.0-0.9 [facility] Comment on above: IG% - Immature Granu locytes (promyelocytes, myelocytes and metamyelocytes) > 1% indicates that a LEFT SHIFT is Present. MCH (RBC) [Entitic mass] 33.6 pg 27.0-32.0 [facility] Nucleated RBC/100 WBC (Bld) [Ratio] 0 % 0-5 [facility] MCHC Auto (RBC) [Mass/Vol]Or dered By: Dr. Wilson on 08-23-2022 MCHC (RBC) [Mass/Vol] 34.1 g/dL 32-36 [facility] No Panel InformationOrdered By: Dr. Wilson on 08-23-2022 Estimated GFR (MDRD) Amer 69 mL/min >60 [facility] Comment on above: GFR Calc Estimated GFR (MDRD) Non-Af Amer 57 mL/min >60 [facility] Comment on above: Non- GFR Calc Platelets bldOrdered By: Dr. Wilson on 08-23-2022 Platelets (Bld) [#/Vol] 264 10*3/uL 150-450 [facility] Serum or plasma C reactive p rotein measurement (mass/volume)Ordered By: Dr. Wilson on 08-23-2022 CRP [Mass/Vol] mg/L 0.0-3.0 [facility] Comment on above: C-Reactive Protein ( CRP) provides useful information for thediagnosis, therapy and monitoring of inflammatory processesand associated diseases. For the evaluation of Relative Riskfor Cardiovascular Disease, a High Sensitivity CRP (HSCRP)should be ordered. Serum or plasma creatinine m easurement (mass/volume)Ordered By: Dr. Wilson on 08-23-2022 Creatinine [Mass/Vol] 1.29 mg/dL 0.70-1.30 [facility] Comment on above: The validity of the calculated GFR & GFRAA in patients over 70 years has not been determined. Clinical correlation is essential. Serum or plasma uric acid me asurement (mass/volume)Ordered By: Dr. Wilson on 08-23-2022 Urate [Mass/Vol] 5.9 mg/dL 3.5-7.2 [facility] Comment on above: The drugs N-Acetylcy steine and Metamizole may falsely depress this assay. Thin prep Papanicolaou smear with manual screeningOrdered By: Dr. Wilson on 08-23-2022 Thin prep Papanicolaou smear with manual screening 28 U/L 15-37 [facility] Absolute lymphocyte counton 06-21-2022 Lymphocytes Auto (Unsp spec) [#/Vol] 1.75 10*3/uL 0.83-4.51 [facility] Work Phone: Basophil percentageon 2021 Basophils/100 WBC (Bld) 0.4 % 0-1 [facility] Work Phone: Eosinophils/100 WBC (Bld) 8.3 % 0-5 [facility] Work Phone: Neutrophils (Bld) [#/Vol] 2.9 10*3/uL 2.0-7.7 [facility] Work Phone: Neutrophils/100 WBC (Bld) 51.2 % 47-70 [facility] Work Phone: WBC (Bld) [#/Vol] 5.7 10*3/uL 4.4-11.0 [facility] Work Phone: Blood erythrocytes count (nu mber/volume)on 06-21-2022 RBC (Bld) [#/Vol] 3.96 10*6/uL 4.6-6.2 [facility]: Blood hemoglobin measurement (mass/volume)on 06-21-2022 Hemoglobin (Bld) [Mass/Vol] 12.9 g/dL 13.0-16.5 [facility] Work Phone: Blood lymphocytes/100 leukoc yteson 06-21-2022 Lymphocytes/100 WBC (Bld) 30.9 % 19-41 [facility] Work Phone: Blood monocytes/100 leukocyt eson 06-21-2022 Monocytes/100 WBC (Bld) 9.0 % 0-10 [facility] Work Phone: Blood platelet mean volumeon 06-21-2022 Platelet mean volume (Bld) [Entitic vol] 10.0 fL 6.2-12.0 [facility] Work Phone: Determination of erythrocyte mean corpuscular volume (MCV)on 06-21-2022 MCV (RBC) [Entitic vol] 96.2 fL 80-94 [facility] Work Phone: Erythrocyte sedimentation ra judie 06-21-2022 ESR (Bld) [Velocity] 8 mm/h 0-20 [facility] Work Phone: [phone] Hematocrit Auto (Bld) [Volum e fraction]on 06-21-2022 Hematocrit (Bld) [Volume fraction] 38.1 % 40-54 [facility] Work Phone: [phone] Laboratory - Chemistry and C hemistry - challengeon 06-21-2022 ALT [Catalytic activity/Vol] 56 U/L 16-61 [facility] Work Phone: [phone] Laboratory - Hematology and Cell countson 06-21-2022 Erythrocyte distribution width (RBC) [Entitic vol] 48.8 fL 35.1-43.9 [facility] Work Phone: [phone] Erythrocyte distribution width (RBC) [Ratio] 14.0 % 11.6-14.6 [facility] Work Phone: [phone] Immature granulocytes/100 WBC (Bld) 0.200 % 0.0-0.9 [facility] Work Phone: [phone] Comment on above: IG% - Immature Granu locytes (promyelocytes, myelocytes and metamyelocytes) > 1% indicates that a LEFT SHIFT is Present. MCH (RBC) [Entitic mass] 32.6 pg 27.0-32.0 [facility] Work Phone: [phone] Nucleated RBC/100 WBC (Bld) [Ratio] 0 % 0-5 [facility] Work Phone: [phone] MCHC Auto (RBC) [Mass/Vol]on 06-21-2022 MCHC (RBC) [Mass/Vol] 33.9 g/dL 32-36 [facility] Work Phone: [phone] No Panel Informationon 06-21 Estimated GFR (MDRD) Amer 61 mL/min >60 [facility] Work Phone: [phone] Comment on above: GFR Calc Estimated GFR (MDRD) Non-Af Amer 51 mL/min >60 [facility] Work Phone: [phone] Comment on above: Non- GFR Calc Platelets bldon 06-21-2022 Platelets (Bld) [#/Vol] 220 10*3/uL 150-450 [facility] Work Phone: Serum or plasma C reactive p rotein measurement (mass/volume)on 06-21-2022 CRP [Mass/Vol] mg/L 0.0-3.0 [facility] Work Phone: Comment on above: C-Reactive Protein ( CRP) provides useful information for thediagnosis, therapy and monitoring of inflammatory processesand associated diseases. For the evaluation of Relative Riskfor Cardiovascular Disease, a High Sensitivity CRP (HSCRP)should be ordered. Serum or plasma creatinine m easurement (mass/volume)on 06-21-2022 Creatinine [Mass/Vol] 1.43 mg/dL 0.70-1.30 [facility] Work Phone: Comment on above: The validity of the calculated GFR & GFRAA in patients over 70 years has not been determined. Clinical correlation is essential. Serum or plasma uric acid me asurement (mass/volume)on 06-21-2022 Urate [Mass/Vol] 6.3 mg/dL 3.5-7.2 [facility] Work Phone: Comment on above: The drugs N-Acetylcy steine and Metamizole may falsely depress this assay. Thin prep Papanicolaou smear with manual screeningon 06-21-2022 Thin prep Papanicolaou smear with manual screening 27 U/L 15-37 [facility] Work Phone: Absolute lymphocyte counton 04-21-2022 Lymphocytes Auto (Unsp spec) [#/Vol] 1.19 10*3/uL 0.83-4.51 [facility] Work Phone: Basophil percentageon 2021 Basophils/100 WBC (Bld) 0.6 % 0-1 [facility] Work Phone: Eosinophils/100 WBC (Bld) 4.4 % 0-5 [facility] Work Phone: [phone] Neutrophils (Bld) [#/Vol] 5.6 10*3/uL 2.0-7.7 [facility] Work Phone: Neutrophils/100 WBC (Bld) 70.4 % 47-70 [facility] Work Phone: WBC (Bld) [#/Vol] 8.0 10*3/uL 4.4-11.0 [facility]: Blood erythrocytes count (nu mber/volume)on 04-21-2022 RBC (Bld) [#/Vol] 4.15 10*6/uL 4.6-6.2 [facility]: Blood hemoglobin measurement (mass/volume)on 04-21-2022 Hemoglobin (Bld) [Mass/Vol] 13.8 g/dL 13.0-16.5 [facility] Work Phone: Blood lymphocytes/100 leukoc yteson 04-21-2022 Lymphocytes/100 WBC (Bld) 14.9 % 19-41 [facility] Work Phone: Blood monocytes/100 leukocyt eson 04-21-2022 Monocytes/100 WBC (Bld) 8.9 % 0-10 [facility] Work Phone: Blood platelet mean volumeon 04-21-2022 Platelet mean volume (Bld) [Entitic vol] 10.5 fL 6.2-12.0 [facility] Work Phone: Determination of erythrocyte mean corpuscular volume (MCV)on 04-21-2022 MCV (RBC) [Entitic vol] 97.1 fL 80-94 [facility] Work Phone: Erythrocyte sedimentation ra judie 04-21-2022 ESR (Bld) [Velocity] 13 mm/h 0-20 [facility]: Hematocrit Auto (Bld) [Volum e fraction]on 04-21-2022 Hematocrit (Bld) [Volume fraction] 40.3 % 40-54 [facility] Work Phone: Laboratory - Chemistry and C hemistry - challengeon 04-21-2022 ALT [Catalytic activity/Vol] 43 U/L 16-61 [facility] Work Phone: Laboratory - Hematology and Cell countson 04-21-2022 Erythrocyte distribution width (RBC) [Entitic vol] 46.5 fL 35.1-43.9 [facility] Work Phone: [phone] Erythrocyte distribution width (RBC) [Ratio] 13.2 % 11.6-14.6 [facility] Work Phone: [phone] Immature granulocytes/100 WBC (Bld) 0.800 % 0.0-0.9 [facility] Work Phone: [phone] Comment on above: IG% - Immature Granu locytes (promyelocytes, myelocytes and metamyelocytes) > 1% indicates that a LEFT SHIFT is Present. MCH (RBC) [Entitic mass] 33.3 pg 27.0-32.0 [facility] Work Phone: [phone] Nucleated RBC/100 WBC (Bld) [Ratio] 0 % 0-5 [facility] Work Phone: [phone] MCHC Auto (RBC) [Mass/Vol]on 04-21-2022 MCHC (RBC) [Mass/Vol] 34.2 g/dL 32-36 [facility] Work Phone: No Panel Informationon 04-21 Estimated GFR (MDRD) Amer 74 mL/min >60 [facility] Work Phone: Comment on above: GFR Calc Estimated GFR (MDRD) Non-Af Amer 61 mL/min >60 [facility] Work Phone: [phone] Comment on above: Non- GFR Calc Platelets bldon 04-21-2022 Platelets (Bld) [#/Vol] 255 10*3/uL 150-450 [facility] Work Phone: [phone] Serum or plasma C reactive p rotein measurement (mass/volume)on 04-21-2022 CRP [Mass/Vol] 5.46 mg/L 0.0-3.0 [facility] Work Phone: [phone] Comment on above: C-Reactive Protein ( CRP) provides useful information for thediagnosis, therapy and monitoring of inflammatory processesand associated diseases. For the evaluation of Relative Riskfor Cardiovascular Disease, a High Sensitivity CRP (HSCRP)should be ordered. Serum or plasma creatinine m easurement (mass/volume)on 04-21-2022 Creatinine [Mass/Vol] 1.22 mg/dL 0.70-1.30 [facility] Work Phone: Comment on above: The validity of the calculated GFR & GFRAA in patients over 70 years has not been determined. Clinical correlation is essential. Thin prep Papanicolaou smear with manual screeningon 04-21-2022 Thin prep Papanicolaou smear with manual screening 23 U/L 15-37 [facility] Work Phone: Absolute lymphocyte counton 02-22-2022 Lymphocytes Auto (Unsp spec) [#/Vol] 1.91 10*3/uL 0.83-4.51 [facility] Work Phone: Basophil percentageon 2021 Basophils/100 WBC (Bld) 0.4 % 0-1 [facility] Work Phone: Bilirubin [Mass/Vol] 0.40 mg/dL 0.20-1.00 [facility] Work Phone: Comment on above: For patients on eltr ombopag therapy, use of Dimension Ramer TBIL is not recommended. Chloride [Moles/Vol] 106 mmol/L 98-107 [facility] Work Phone: Eosinophils/100 WBC (Bld) 5.2 % 0-5 [facility] Work Phone: Glucose [Mass/Vol] 127 mg/dL 74-106 [facility] Work Phone: Comment on above: Fasting Glucose resu lt greater than or equal to 126 mg/dL suggests DIABETES MELLITUS per A.D.A. criteria. Neutrophils (Bld) [#/Vol] 4.6 10*3/uL 2.0-7.7 [facility] Work Phone: Neutrophils/100 WBC (Bld) 59.3 % 47-70 [facility] Work Phone: Potassium [Moles/Vol] 4.2 mmol/L 3.5-5.1 [facility] Work Phone: Protein [Mass/Vol] 7.2 g/dL 6.4-8.2 [facility] Work [facility]: Sodium [Moles/Vol] 138 mmol/L 136-145 [facility] Work Phone: [phone] WBC (Bld) [#/Vol] 7.8 10*3/uL 4.4-11.0 [facility] Work Phone: [phone] Blood erythrocytes count (nu mber/volume)on 02-22-2022 RBC (Bld) [#/Vol] 4.50 10*6/uL 4.6-6.2 [facility]: Blood hemoglobin measurement (mass/volume)on 02-22-2022 Hemoglobin (Bld) [Mass/Vol] 14.6 g/dL 13.0-16.5 [facility] Work Phone: [phone] Blood lymphocytes/100 leukoc yteson 02-22-2022 Lymphocytes/100 WBC (Bld) 24.4 % 19-41 [facility] Work Phone: [phone] Blood monocytes/100 leukocyt eson 02-22-2022 Monocytes/100 WBC (Bld) 10.1 % 0-10 [facility] Work Phone: Blood platelet mean volumeon 02-22-2022 Platelet mean volume (Bld) [Entitic vol] 10.1 fL 6.2-12.0 [facility] Work Phone: [phone] Determination of erythrocyte mean corpuscular volume (MCV)on 02-22-2022 MCV (RBC) [Entitic vol] 94.4 fL 80-94 [facility] Work Phone: [phone] Erythrocyte sedimentation ra judie 02-22-2022 ESR (Bld) [Velocity] 12 mm/h 0-20 [facility]: [phone] Hematocrit Auto (Bld) [Volum e fraction]on 02-22-2022 Hematocrit (Bld) [Volume fraction] 42.5 % 40-54 [facility] Work Phone: [phone] Laboratory - Chemistry and C hemistry - challengeon 02-22-2022 ALP [Catalytic activity/Vol] 89 U/L 45-117 [facility] Work Phone: [phone] ALT [Catalytic activity/Vol] 58 U/L 16-61 [facility] Work Phone: [phone] CO2 [Moles/Vol] 30.0 mmol/L 21.0-32.0 [facility] Work Phone: [phone] Globulin (S) [Mass/Vol] 3.8 g/dL 2.2-4.2 [facility] Work Phone: [phone] Urea nitrogen/Creatinine [Mass ratio] 18.9 mg/mg 10-20 [facility] Work Phone: [phone] Laboratory - Hematology and Cell countson 02-22-2022 Erythrocyte distribution width (RBC) [Entitic vol] 46.1 fL 35.1-43.9 [facility] Work Phone: [phone] Erythrocyte distribution width (RBC) [Ratio] 13.4 % 11.6-14.6 [facility] Work Phone: [phone] Immature granulocytes/100 WBC (Bld) 0.600 % 0.0-0.9 [facility] Work Phone: [phone] Comment on above: IG% - Immature Granu locytes (promyelocytes, myelocytes and metamyelocytes) > 1% indicates that a LEFT SHIFT is Present. MCH (RBC) [Entitic mass] 32.4 pg 27.0-32.0 [facility] Work Phone: [phone] Nucleated RBC/100 WBC (Bld) [Ratio] 0 % 0-5 [facility] Work Phone: [phone] MCHC Auto (RBC) [Mass/Vol]on 02-22-2022 MCHC (RBC) [Mass/Vol] 34.4 g/dL 32-36 [facility] Work [facility]: [phone] Panel Informationon 02-22 Estimated Creatinine Clearance Calc 54.77 ml/min [facility] Work Phone: Estimated GFR (MDRD) Amer 74 mL/min >60 [facility] Work Phone: Comment on above: GFR Calc Estimated GFR (MDRD) Non-Af Amer 61 mL/min >60 [facility] Work Phone: Comment on above: Non- GFR Calc Platelets bldon 02-22-2022 Platelets (Bld) [#/Vol] 277 10*3/uL 150-450 [facility] Work Phone: Serum or plasma C reactive p rotein measurement (mass/volume)on 02-22-2022 CRP [Mass/Vol] 11.30 mg/L 0.0-3.0 [facility] Work Phone: Comment on above: C-Reactive Protein ( CRP) provides useful information for thediagnosis, therapy and monitoring of inflammatory processesand associated diseases. For the evaluation of Relative Riskfor Cardiovascular Disease, a High Sensitivity CRP (HSCRP)should be ordered. Serum or plasma albumin amadou urement (mass/volume)on 02-22-2022 Albumin [Mass/Vol] 3.4 g/dL 3.2-5.0 [facility] Work Phone: Serum or plasma albumin/glob ulin mass ratioon 02-22-2022 Albumin/Globulin [Mass ratio] 0.9 {ratio} 0.9-2.4 [facility] Work Phone: Serum or plasma calcium amadou urement (mass/volume)on 02-22-2022 Calcium [Mass/Vol] 9.4 mg/dL 8.5-10.1 [facility] Work Phone: Serum or plasma creatinine m easurement (mass/volume)on 02-22-2022 Creatinine [Mass/Vol] 1.22 mg/dL 0.70-1.30 [facility] Work Phone: Comment on above: The validity of the calculated GFR & GFRAA in patients over 70 years has not been determined. Clinical correlation is essential. Serum or plasma urea nitroge n measurement (mass/volume)on 02-22-2022 Urea nitrogen [Mass/Vol] 23 mg/dL 7-18 [facility] Work Phone: Thin prep Papanicolaou smear with manual screeningon 02-22-2022 Thin prep Papanicolaou smear with manual screening 32 U/L 15-37 [facility] Work Phone: Thin prep Papanicolaou smear with manual screening 2 5-15 [facility] Work Phone: Absolute lymphocyte counton 02-05-2022 Lymphocytes Auto (Unsp spec) [#/Vol] 1.31 10*3/uL 0.83-4.51 [facility] Work Phone: Basophil percentageon 2021 Basophils/100 WBC (Bld) 0.8 % 0-1 [facility] Work Phone: Bilirubin [Mass/Vol] 0.60 mg/dL 0.20-1.00 [facility] Work Phone: Comment on above: For patients on eltr ombopag therapy, use of Dimension Ramer TBIL is not recommended. Chloride [Moles/Vol] 106 mmol/L 98-107 [facility] Work Phone: Cholesterol [Mass/Vol] 144 mg/dL <200 [facility] Work Phone: Comment on above: <200 mg/dL Desirable 200-240 mg/dL Borderline >240 mg/dL High Risk Eosinophils/100 WBC (Bld) 6.9 % 0-5 [facility] Work Phone: Glucose [Mass/Vol] 166 mg/dL 74-106 [facility] Work Phone: Comment on above: Fasting Glucose resu lt greater than or equal to 126 mg/dL suggests DIABETES MELLITUS per A.D.A. criteria. Neutrophils (Bld) [#/Vol] 3.5 10*3/uL 2.0-7.7 [facility] Work Phone: Neutrophils/100 WBC (Bld) 57.2 % 47-70 [facility] Work Phone: Potassium [Moles/Vol] 4.4 mmol/L 3.5-5.1 [facility] Work Phone: [phone] Protein [Mass/Vol] 7.5 g/dL 6.4-8.2 [facility] Work Phone: [phone] Sodium [Moles/Vol] 139 mmol/L 136-145 [facility] Work Phone: [phone] Triglyceride [Mass/Vol] 76 mg/dL <199 [facility] Work Phone: [phone] Comment on above: The drugs N-Acetylcy steine and Metamizole may falsely depress this assay.Serum Triglycerides Reference Interval Normal <150 mg/dL Borderline high 150 - 199 mg/dL High 200 - 499 mg/dL Very High > or = 500 mg/dL WBC (Bld) [#/Vol] 6.1 10*3/uL 4.4-11.0 [facility] Work Phone: [phone] Blood erythrocytes count (nu mber/volume)on 02-05-2022 RBC (Bld) [#/Vol] 4.51 10*6/uL 4.6-6.2 [facility] Work Phone: [phone] Blood hemoglobin measurement (mass/volume)on 02-05-2022 Hemoglobin (Bld) [Mass/Vol] 14.3 g/dL 13.0-16.5 [facility] Work Phone: [phone] Blood lymphocytes/100 leukoc yteson 02-05-2022 Lymphocytes/100 WBC (Bld) 21.5 % 19-41 [facility] Work Phone: [phone] Blood monocytes/100 leukocyt eson 02-05-2022 Monocytes/100 WBC (Bld) 13.3 % 0-10 [facility] Work Phone: [phone] Blood platelet mean volumeon 02-05-2022 Platelet mean volume (Bld) [Entitic vol] 10.3 fL 6.2-12.0 [facility] Work Phone: [phone] Determination of erythrocyte mean corpuscular volume (MCV)on 02-05-2022 MCV (RBC) [Entitic vol] 94.9 fL 80-94 [facility] Work Phone: Direct bilirubinon Bilirubin.direct [Mass/Vol] 0.20 mg/dL 0.00-0.30 [facility] Work Phone: Erythrocyte sedimentation ra judie 02-05-2022 ESR (Bld) [Velocity] 21 mm[facility]h 0-20 [facility] Work [facility]: Hematocrit Auto (Bld) [Volum e fraction]on 02-05-2022 Hematocrit (Bld) [Volume fraction] 42.8 % 40-54 [facility] Work Phone: Laboratory - Chemistry and C hemistry - challengeon 02-05-2022 ALP [Catalytic activity/Vol] 77 U/L 45-117 [facility] Work Phone: ALT [Catalytic activity/Vol] 56 U/L 16-61 [facility] Work Phone: [phone] CO2 [Moles/Vol] 28.0 mmol/L 21.0-32.0 [facility] Work Phone: Globulin (S) [Mass/Vol] 3.9 g/dL 2.2-4.2 [facility] Work Phone: Urea nitrogen/Creatinine [Mass ratio] 17.4 mg/mg 10-20 [facility] Work Phone: Laboratory - Hematology and Cell countson 02-05-2022 Erythrocyte distribution width (RBC) [Entitic vol] 48.2 fL 35.1-43.9 [facility] Work Phone: Erythrocyte distribution width (RBC) [Ratio] 13.9 % 11.6-14.6 [facility] Work Phone: Immature granulocytes/100 WBC (Bld) 0.300 % 0.0-0.9 [facility] Work Phone: Comment on above: IG% - Immature Granu locytes (promyelocytes, myelocytes and metamyelocytes) > 1% indicates that a LEFT SHIFT is Present. MCH (RBC) [Entitic mass] 31.7 pg 27.0-32.0 [facility] Work Phone: [phone] Nucleated RBC/100 WBC (Bld) [Ratio] 0 % 0-5 [facility] Work Phone: [phone] MCHC Auto (RBC) [Mass/Vol]on 02-05-2022 MCHC (RBC) [Mass/Vol] 33.4 g/dL 32-36 [facility] Work Phone: [phone] Panel Informationon 02-05 Estimated GFR (MDRD) Amer 67 mL/min >60 [facility] Work Phone: [phone] Comment on above: GFR Calc Estimated GFR (MDRD) Non-Af Amer 56 mL/min >60 [facility] Work Phone: [phone] Comment on above: Non- GFR Calc Prostate Specific Antigen Total 0.86 ng/mL 0.0-4.0 [facility] Work Phone: [phone] Comment on above: This test was perfor med using the TPSA assay method for [employer] chemistry system. Values obtained with differentassay methods cannot be used interchangably.When changing PSA assays in the course of monitoring apatient, additional sequential testing should be carriedout to confirm baseline values. Urine Microalbumin/Creatinine Ratio 123.7 mg/g CRE <30 [facility] Work Phone: [phone] Platelets bldon 02-05-2022 Platelets (Bld) [#/Vol] 208 10*3/uL 150-450 [facility] Work Phone: [phone] Serum or plasma C reactive p rotein measurement (mass/volume)on 02-05-2022 CRP [Mass/Vol] 4.99 mg/L 0.0-3.0 [facility] Work Phone: [phone] Comment on above: C-Reactive Protein ( CRP) provides useful information for thediagnosis, therapy and monitoring of inflammatory processesand associated diseases. For the evaluation of Relative Riskfor Cardiovascular Disease, a High Sensitivity CRP (HSCRP)should be ordered. Serum or plasma albumin amadou urement (mass/volume)on 02-05-2022 Albumin [Mass/Vol] 3.6 g/dL 3.2-5.0 [facility] Work Phone: [phone] Serum or plasma albumin/glob ulin mass ratioon 02-05-2022 Albumin/Globulin [Mass ratio] 0.9 {ratio} 0.9-2.4 [facility] Work Phone: Serum or plasma calcium amadou urement (mass/volume)on 02-05-2022 Calcium [Mass/Vol] 9.7 mg/dL 8.5-10.1 [facility] Work Phone: [phone] Serum or plasma cholesterol in HDL measurement (mass/volume)on 02-05-2022 Cholesterol in HDL [Mass/Vol] 47 mg/dL >40 [facility] Work Phone: Comment on above: The drugs N-Acetylcy steine and Metamizole may falsely depress this assay. Reference Range HDL <40 mg/dL Low HDL Cholesterol HDL >or= 60 mg/dL High HDL Cholesterol Serum or plasma cholesterol in VLDL measurement (mass/volume)on 02-05-2022 Cholesterol in VLDL [Mass/Vol] 15 mg/dL 5-40 [facility] Work Phone: [phone] Serum or plasma creatinine m easurement (mass/volume)on 02-05-2022 Creatinine [Mass/Vol] 1.32 mg/dL 0.70-1.30 [facility] Work Phone: Comment on above: The validity of the calculated GFR & GFRAA in patients over 70 years has not been determined. Clinical correlation is essential. Serum or plasma low density lipoprotein (LDL) cholesterol measurement (mass/volume)on 02-05-2022 Cholesterol in LDL [Mass/Vol] 82 mg/dL 0-130 [facility] Work Phone: [phone] Serum or plasma urea nitroge n measurement (mass/volume)on 02-05-2022 Urea nitrogen [Mass/Vol] 23 mg/dL 7-18 [facility] Work Phone: [phone] Thin prep Papanicolaou smear with manual screeningon 02-05-2022 Thin prep Papanicolaou smear with manual screening 27 U/L 15-37 [facility] Work Phone: Thin prep Papanicolaou smear with manual screening 5 5-15 [facility] Work Phone: [phone] Thin prep Papanicolaou smear with manual screening 277.0 mg/L NO RANGE EST. [facility] Work Phone: Urine creatinine measurement (mass/volume)on 02-05-2022 Creatinine (U) [Mass/Vol] 224.00 mg/dL NO RANGE EST. [facility] Work Phone: Whole blood hemoglobin A1c/t otal hemoglobin ratio (mass fraction)on 02-05-2022 HbA1c (Bld) [Mass fraction] 6.9 % 3.8-5.6 [facility] Work Phone: Comment on above: Normal < 5.7 % Predi abetic 5.7 - 6.4 % Diabetic >or= 6.5 % Please note range changes. Absolute lymphocyte counton 12-04-2021 Lymphocytes Auto (Unsp spec) [#/Vol] 1.62 10*3/uL 0.83-4.51 [facility] Work Phone: Basophil percentageon 2021 Basophils/100 WBC (Bld) 0.5 % 0-1 [facility] Work Phone: Eosinophils/100 WBC (Bld) 7.7 % 0-5 [facility] Work Phone: Neutrophils (Bld) [#/Vol] 3.5 10*3/uL 2.0-7.7 [facility] Work Phone: Neutrophils/100 WBC (Bld) 55.6 % 47-70 [facility] Work Phone: WBC (Bld) [#/Vol] 6.2 10*3/uL 4.4-11.0 [facility] Work Phone: Blood erythrocytes count (nu mber/volume)on 12-04-2021 RBC (Bld) [#/Vol] 4.48 10*6/uL 4.6-6.2 [facility] Work Phone: Blood hemoglobin measurement (mass/volume)on 12-04-2021 Hemoglobin (Bld) [Mass/Vol] 14.1 g/dL 13.0-16.5 [facility] Work Phone: Blood lymphocytes/100 leukoc yteson 12-04-2021 Lymphocytes/100 WBC (Bld) 26.1 % 19-41 [facility] Work Phone: [phone] Blood monocytes/100 leukocyt eson 12-04-2021 Monocytes/100 WBC (Bld) 9.8 % 0-10 [facility] Work Phone: Blood platelet mean volumeon 12-04-2021 Platelet mean volume (Bld) [Entitic vol] 10.5 fL 6.2-12.0 [facility] Work Phone: Determination of erythrocyte mean corpuscular volume (MCV)on 12-04-2021 MCV (RBC) [Entitic vol] 94.2 fL 80-94 [facility] Work Phone: Erythrocyte sedimentation ra judie 12-04-2021 ESR (Bld) [Velocity] 5 mm/h [facility]: Hematocrit Auto (Bld) [Volum e fraction]on 12-04-2021 Hematocrit (Bld) [Volume fraction] 42.2 % 40-54 [facility] Work Phone: Laboratory - Chemistry and C hemistry - challengeon 12-04-2021 ALT [Catalytic activity/Vol] 46 U/L 16-61 [facility] Work Phone: Laboratory - Hematology and Cell countson 12-04-2021 Erythrocyte distribution width (RBC) [Entitic vol] 47.0 fL 35.1-43.9 [facility] Work Phone: Erythrocyte distribution width (RBC) [Ratio] 13.7 % 11.6-14.6 [facility] Work Phone: Immature granulocytes/100 WBC (Bld) 0.300 % 0.0-0.9 [facility] Work Phone: Comment on above: IG% - Immature Granu locytes (promyelocytes, myelocytes and metamyelocytes) > 1% indicates that a LEFT SHIFT is Present. MCH (RBC) [Entitic mass] 31.5 pg 27.0-32.0 [facility] Work Phone: Nucleated RBC/100 WBC (Bld) [Ratio] 0 % 0-5 [facility] Work Phone: [phone] MCHC Auto (RBC) [Mass/Vol]on 12-04-2021 MCHC (RBC) [Mass/Vol] 33.4 g/dL 32-36 [facility] Work Phone: No Panel Informationon 12-04 Estimated GFR (MDRD) Amer 77 mL/min >60 [facility] Work Phone: Comment on above: GFR Calc Estimated GFR (MDRD) Non-Af Amer 64 mL/min >60 [facility] Work Phone: Comment on above: Non- GFR Calc Platelets bldon 12-04-2021 Platelets (Bld) [#/Vol] 264 10*3/uL 150-450 [facility] Work Phone: Serum or plasma C reactive p rotein measurement (mass/volume)on 12-04-2021 CRP [Mass/Vol] mg/L 0.0-3.0 [facility] Work Phone: Comment on above: C-Reactive Protein ( CRP) provides useful information for thediagnosis, therapy and monitoring of inflammatory processesand associated diseases. For the evaluation of Relative Riskfor Cardiovascular Disease, a High Sensitivity CRP (HSCRP)should be ordered. Serum or plasma creatinine m easurement (mass/volume)on 12-04-2021 Creatinine [Mass/Vol] 1.17 mg/dL 0.70-1.30 [facility] Work Phone: Comment on above: The validity of the calculated GFR & GFRAA in patients over 70 years has not been determined. Clinical correlation is essential. Thin prep Papanicolaou smear with manual screeningon 12-04-2021 Thin prep Papanicolaou smear with manual screening 30 U/L 15-37 [facility] Work Phone: Krysten 10-08-2019 ALT [Catalytic activity/Vol] 40 U/L [facility] Sandi 10-08-2019 AST [Catalytic activity/Vol] 31 U/L [facility] C REACTIVE PROTEINon 019 CRP [Mass/Vol] mg/L 0 - 10 MG/L [facility] CBC, EDIF, PLATELETon 2018 ABSOLUTE BASOPHIL COUNT 0.0 10*3/uL 0 - 0.2 10*3/uL [facility] Basophils/100 WBC (Bld) 0.6 % 0 - 2 % [facility] [employer] Differential cell count method Nom (Bld) AUTO DIFF % [facility] Eosinophils (Bld) [#/Vol] 1.30 10*3/uL High 0 - 0.7 10*3/uL [facility] Eosinophils/100 WBC (Bld) 16.9 % High 0 - 11 % [facility] Erythrocyte distribution width (RBC) [Ratio] 14.6 % High 11.5 - 14.5 % [facility] Hematocrit (Bld) [Volume fraction] 41.3 % Low 42 - 52 % [facility] Hemoglobin (Bld) [Mass/Vol] 13.8 g/dL Low [facility] Interpretation and review of laboratory results Abnormal [facility] Lymphocytes (Bld) [#/Vol] 1.80 10*3/uL 1.2 - 3.4 10*3/uL [facility] Lymphocytes/100 WBC (Bld) 24.3 % 20 - 55 % [facility] MCH (RBC) [Entitic mass] 31.2 pg 26 - 35 PG [facility] MCHC (RBC) [Mass/Vol] 33.5 g/dL [facility] MCV (RBC) [Entitic vol] 93.4 fL [facility] [employer] [place] Monocytes (Bld) [#/Vol] 0.7 10*3/uL 0 - 0.7 10*3/uL [facility] Monocytes/100 WBC (Bld) 8.9 % 0 - 10 % [facility] [employer] [place] Neutrophils (Bld) [#/Vol] 3.7 10*3/uL 1.4 - 6.5 10*3/uL [facility] [employer] [place] Neutrophils/100 WBC (Bld) 49.3 % 37 - 75 % [facility] Platelet mean volume (Bld) [Entitic vol] 9.8 fL [facility] [employer] [place] Platelets (Bld) [#/Vol] 215 10*3/uL 130 - 400 10*3/uL [facility] [employer] [place] RBC (Bld) [#/Vol] 4.42 10*6/uL 4 - 6.1 10*6/uL [facility] WBC (Bld) [#/Vol] 7.5 10*3/uL 3.6 - 11 10*3/uL [facility] CREATININE SERUMon 9 Creatinine [Mass/Vol] 0.98 mg/dL [facility] [employer] [place] GFR/1.73 sq M predicted among blacks MDRD (S/P/Bld) [Vol rate/Area] mL/min/{1.73_m2} ml/min/1.73 sq.m [facility] GFR/1.73 sq M predicted among non-blacks MDRD (S/P/Bld) [Vol rate/Area] Average GFR for 70+ years old = 75. [facility] Comment on above: Chronic Kidney disea se, GFR = <60. Kidney failure, GFR = <15. The GFR estimate is not adjusted for extreme body surface area or acute process, nor has it been validated for women or ethnic groups other than and . GFR/1.73 sq M predicted among non-blacks MDRD (S/P/Bld) [Vol rate/Area] mL/min/{1.73_m2} ml/min/1.73 sq.m [facility] SEDIMENTATION RATE, AUTOMATE Don 10-08-2019 ESR (Bld) [Velocity] 4 mm/h [facility] Office Visit: [facility] 10-03-20 17 Dietary management education, guidance, and counseling (procedure) yes Invalid Interpretation Code [facility] Work Phone: [phone] Documentation of current medications (procedure) Done Invalid Interpretation Code [facility] Work Phone: [phone] Fall risk assessment No Invalid Interpretation Code [facility] Work Phone: [phone] [facility] Note on 05-20-2017 [facility] Normal [facility] Office Visit: OSAon 05-09-20 17 Tobacco smoking status NHIS Never Invalid Interpretation Code [facility] Work Phone: [phone] Tobacco use [facility] Former smoker Invalid Interpretation Code [facility] Work Phone: [phone] Lab Report: Comprehensive Ri tabolic Profilon 01-03-2017 Alanine aminotransferase (ALT) 46 U/L Invalid Interpretation Code 12-78 [facility] Work Phone: [phone] Albumin 3.8 g/dL Invalid Interpretation Code 3.4-5.0 [facility] Work Phone: [phone] Albumin/Globulin Ratio 1.3 {ratio} Invalid Interpretation Code 0.9-2.4 [facility] Work Phone: [phone] Alkaline phosphatase (ALP) 48 U/L Invalid Interpretation Code 45-117 [facility] Work Phone: [phone] Anion gap 9 mmol/L Invalid Interpretation Code 5-15 [facility] Work Phone: [phone] Aspartate aminotransferase (AST) 25 U/L Invalid Interpretation Code 15-37 [facility] Work Phone: [phone] Bilirubin (total) 0.50 mg/dL Invalid Interpretation Code 0.20-1.00 [facility] Work Phone: [phone] BUN/Creatinine Ratio 21.8 RATIO High 10-[address] [facility] Work Phone: [phone] Calcium 9.2 mg/dL Invalid Interpretation Code 8.5-10.1 [facility] Work Phone: [phone] Chloride 104 mmol/L Invalid Interpretation Code 98-107 [facility] Work Phone: [phone] CO2 28.0 mmol/L Invalid Interpretation Code 21.0-32.0 [facility] Work Phone: [phone] Creatinine 1.10 mg/dL Invalid Interpretation Code 0.70-1.30 [facility] Work Phone: [phone] eGFR (non-black) 84 mL/min/{1.73_m2} Invalid Interpretation Code >60 [facility] Work Phone: [phone] eGFR (non-black) 70 mL/min/{1.73_m2} Invalid Interpretation Code >60 [facility] Work Phone: [phone] Globulin 3.0 g/dL Invalid Interpretation Code 2.3-3.5 [facility] Work Phone: [phone] Glucose mass conc 131 mg/dL High 70-110 [facility] Work Phone: [phone] Potassium molar conc 3.9 mmol/L Invalid Interpretation Code 3.5-5.1 [facility] Work Phone: [phone] Protein 6.8 g/dL Invalid Interpretation Code 6.4-8.2 [facility] Work Phone: [phone] Sodium 141 mmol/L Invalid Interpretation Code 136-145 [facility] Work Phone: [phone] Urea nitrogen 24 mg/dL High 7-18 [facility] Work Phone: [phone] Lab Report: Hemoglobin A1con 01-03-2017 Hemoglobin A1c/Hemoglobin.total mass fraction (Bld) 6.1 % Invalid Interpretation Code 4.2-6.3 [facility] Work Phone: [phone] Lab Report: Microalb:Creat R atio,Random URon 01-03-2017 ACR (microalbumin/creatinin e) ratio 27.4 MG/G CRE Invalid Interpretation Code <30 mg/g CRE [facility] Work Phone: [phone] Urine, creatinine 156.00 mg/dL Invalid Interpretation Code NO RANGE EST. [facility] Work Phone: [phone] Urine, microalbumin 4.28 mg/dL Invalid Interpretation Code Units converted. See lab report for original value. 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 Albumin/Globulin Ratio 1.0 {ratio} Invalid Interpretation Code [facility] Work Phone: [phone] Cholesterol 164 mg/dL Invalid Interpretation Code [facility] Work Phone: [phone] eGFR (non-black) 61 mL/min/{1.73_m2} Invalid Interpretation Code [facility] Work Phone: [phone] eGFR (non-black) 74 mL/min/{1.73_m2} Invalid Interpretation Code [facility] Work Phone: [phone] Erythrocyte distribution width Auto Ratio (RBC) 13.0 % Invalid Interpretation Code [facility] Work Phone: [phone] Erythrocytes (RBC) 4.71 10*6/uL Invalid Interpretation Code [facility] Work Phone: [phone] Globulin 3.5 g/dL Invalid Interpretation Code [facility] Work Phone: [phone] HDL Cholesterol 43 mg/dL Invalid Interpretation Code [facility] Work Phone: [phone] Hematocrit (HCT) 42.4 % Invalid Interpretation Code [facility] Work Phone: [phone] Hemoglobin mass conc (Bld) 14.3 g/dL Invalid Interpretation Code [facility] Work Phone: [phone] LDL Cholesterol 93 mg/dL Invalid Interpretation Code [facility] Work Phone: [phone] MCH 30.4 pg Invalid Interpretation Code [facility] Work Phone: [phone] MCHC mass conc (RBC) 33.7 g/dL Invalid Interpretation Code [facility] Work Phone: [phone] MCV 90.0 fL Invalid Interpretation Code [facility] Work Phone: [phone] Platelets 249 10*3/mm3 Invalid Interpretation Code [facility] Work Phone: [phone] PMV by Eleanor 10.7 fL Invalid Interpretation Code [facility] Work Phone: [phone] Triglyceride 138 mg/dL Invalid Interpretation Code [facility] Work Phone: [phone] very low density lipoproteins 28 mg/dL Invalid Interpretation Code [facility] Work Phone: [phone] WBC (Leukocytes) 7.4 10*3/uL Invalid Interpretation Code [facility] Work Phone: [phone] Lab Report: Erythrocyte Sed Rateon 01-23-2016 Erythrocyte sedimentation rate 9 mm/h Invalid Interpretation Code 0-20 [facility] Work Phone: [phone] Office Visit: 3rd toe(s) ost eo- L 3rd distal fracture/osteo- MSSA;Levoquin D8on 01-23-2016 Smoking cessation education (procedure) yes Invalid Interpretation Code [facility] Phone: [phone] Lab Report: Liver Profileon 11-20-2015 Bilirubin (direct) 0.13 mg/dL Invalid Interpretation Code 0.00-0.30 [facility] Work Phone: [phone] Office Visit: [facility] 11-17-19 16 General cardiovascular disease 10Y risk [#] [place].D'Agostino 27 % Invalid Interpretation Code [facility] Work Phone: [phone] Replaced Document: [facility]mark E CG Observationson 11-17-2015 EKG QRS axis 35 deg Invalid Interpretation Code [facility] Work Phone: [phone] Interpretation Sinus Rhythm - occasional PAC # PACs = 1.WITHIN NORMAL LIMITS Invalid Interpretation Code [facility] Work Phone: [phone] P [place] 46 deg Invalid Interpretation Code [facility] Work Phone: [phone] MD Interval 132 ms Invalid Interpretation Code [facility] Work Phone: [phone] Pulse (Heart Rate) 60 /min Invalid Interpretation Code [facility] Work Phone: [phone] QRS Duration 102 ms Invalid Interpretation Code [facility] Work Phone: [phone] QT Interval new path ms Invalid Interpretation Code [facility] Work Phone: [phone] T [place] 35 deg Invalid Interpretation Code [facility] Work Phone: [phone] Lab Report: Renal Profileon 08-25-2015 PHOS 3.0 mg/dL Invalid Interpretation Code 2.5-4.9 [facility] Work Phone: [phone] Replaced Document: (P) CBC W /Diff, Automatedon 08-25-2015 Absolute Neut 5.0 X10 3/UL Invalid Interpretation Code 2.0-7.7 [facility] Phone: Basophils/100 WBC Auto (Bld) 0.6 % Invalid Interpretation Code 0-1 [facility] Work Phone: [phone] Eosinophils/100 leukocytes 14.7 % High 0-5 [facility] Work Phone: [phone] Immature granulocytes/100 WBC (Bld) 0.300 % Invalid Interpretation Code 0.0-0.9 [facility] Work Phone: [phone] Lymphocytes 1.60 X10 3/UL Invalid Interpretation Code 0.83-4.51 [facility] Work Phone: [phone] Lymphocytes/100 leukocytes 18.4 % Low 19-41 [facility] Work Phone: [phone] Monocytes/100 leukocytes 8.8 % Invalid Interpretation Code 0-10 [facility] Work Phone: [phone] Neutrophils/100 WBC Auto (Bld) 57.2 % Invalid Interpretation Code 47-70 [facility] Phone: [phone] RDW SD 42.6 fL Invalid Interpretation Code 35.1-43.9 [facility] Phone: [phone] Office Visiton 05-30-2015 cardiac risk group C Invalid Interpretation Code [facility] Phone: [phone] Office Visit: [facility] 06-22-20 14 Thyroid stimulating hormone (TSH) 1.67 u[iU]/mL Invalid Interpretation Code [facility] Phone: [phone] External Other: Preferred Me thod of Contacton 06-03-2014 methcontact secmsg Invalid Interpretation Code [facility] Phone: [phone] Replaced Document: Midmark E CG Observationson 06-11-2013 Pulse (Heart Rate) 400 ms Invalid Interpretation Code [facility] Phone: [phone] 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 [facility] Work Phone: Bacteria identified Anaer cx Nom (Unsp spec) Anaerobic Culture Anaerococcus prevotii [facility] Work Phone: Anaerobic Culture Anaerobic cocci [facility] Work Phone: [phone] Anaerobic microbial culture No anaerobic bacteria isolated. [facility] Work Phone: Bacteria identified Cx Nom ( Wound) Wound Culture Staphylococcus aureus [facility] Work Phone: [phone] Wound Culture Staphylococcus epidermidis [facility] Work Phone: [phone] Wound Culture Corynebacterium species [facility] Work Phone: [phone] Wound Culture Pseudomonas aeroginosa [facility] Work Phone: [phone] Wound Culture Staphylococcus lugdunensis [facility] Work Phone: [phone] Gram stain for investigation of transfusion reaction Microscopic observation Gram stain Nom (Unsp spec) [facility] Work Phone: Vital Signs Date Time Vital Sign Value Performing Clinician Facility 06-21-2025 20:05-0400 Body temperature 98.1 [degF] Dr. Zach Turner MD Work Phone: [facility] 06-21-2025 20:05-0400 Diastolic blood pressure 68 mm[Hg] Dr. Zach Turner MD Work Phone: [facility] 06-21-2025 20:05-0400 Heart rate 70 /min Dr. Zach Turner MD Work Phone: [facility] 06-21-2025 20:05-0400 Respiratory rate 18 /min Dr. Zach Turner MD Work Phone: [facility] 06-21-2025 20:05-0400 SaO2% (BldA) [Mass fraction] 97 % Dr. Zach Turner MD Work Phone: [facility] 06-21-2025 20:05-0400 Systolic blood pressure 148 mm[Hg] Dr. Zach Turner MD Work Phone: [facility] 06-21-2025 17:20-0400 Body mass index (BMI) [Ratio] 24.4 kg/m2 Dr. Zach Turner MD Work Phone: [facility] 06-21-2025 17:20-0400 Body weight 81.[address] Zach Turner MD Work Phone: [facility] 06-21-2025 15:52-0400 Body height 182.[address] Zach Turner MD Work Phone: [facility] 06-12-2025 11:17-0400 Diastolic blood pressure 82 mm[Hg] Georgina Moore MD Work Phone: [facility] 06-12-2025 11:17-0400 Heart rate 82 /min Georgina Moore MD Work Phone: [facility] 06-12-2025 11:17-0400 Systolic blood pressure 135 mm[Hg] Georgina Moore MD Work Phone: [facility] 06-07-2025 14:47-0400 Body temperature 98.3 [degF] Dr. Zach Turner MD Work Phone: 1(984)600-993805 [place] [address] 06-07-2025 14:47-0400 Diastolic blood pressure 56 mm[Hg] Dr. Zach Turner MD Work Phone: 3(896)714-703439 [address] 06-07-2025 14:47-0400 Heart rate 78 /min Dr. Zach Turner MD Work Phone: 5(568)236-904805 [place] [address] 06-07-2025 14:47-0400 Respiratory rate 16 /min Dr. Zach Turner MD Work Phone: [facility] 06-07-2025 14:47-0400 SaO2% (BldA) [Mass fraction] 97 % Dr. Zach Turner MD Work Phone: [facility] 06-07-2025 14:47-0400 Systolic blood pressure 108 mm[Hg] Dr. Zach Turner MD Work Phone: [facility] 06-07-2025 10:57-0400 Body height 182.[address] Zach Turner MD Work Phone: [facility] 06-07-2025 10:57-0400 Body mass index (BMI) [Ratio] 25.4 kg/m2 Dr. Zach Turner MD Work Phone: [facility] 06-07-2025 10:57-0400 Body weight 85.[address] Zach Turner MD Work Phone: [facility] 05-30-2025 11:43-0400 Body height 182.9 cm Christina Cartagena MD Work Phone: [facility] 05-30-2025 11:43-0400 Body mass index (BMI) [Ratio] 25.67 kg/m2 Christina Cartagena MD Work Phone: [facility] 05-30-2025 11:43-0400 Body weight 85.87 kg Christina Cartagena MD Work Phone: [facility] 05-30-2025 11:43-0400 Diastolic blood pressure 76 mm[Hg] Christina Cartagena MD Work Phone: [facility] 05-30-2025 11:43-0400 Heart rate 71 /min Christina Cartagena MD Work Phone: [facility] 05-30-2025 11:43-0400 SaO2% (BldA) [Mass fraction] 98 % Christina Cartagena MD Work Phone: [facility] 05-30-2025 11:43-0400 Systolic blood pressure 110 mm[Hg] Christina Cartagena MD Work Phone: [facility] 04-17-2025 14:37-0400 Heart rate 84 /min Dr. aZch Turner MD Work Phone: [facility] 04-17-2025 14:36-0400 Body temperature 98.4 [degF] Dr. Zach Turner MD Work Phone: [facility] 04-17-2025 14:36-0400 Diastolic blood pressure 79 mm[Hg] Dr. Zach Turner MD Work Phone: 6(441)271-547905 [place] [address] 04-17-2025 14:36-0400 Respiratory rate 16 /min Dr. Zach Turner MD Work Phone: 4(504)437-075596 [place] [address] 04-17-2025 14:36-0400 SaO2% (BldA) [Mass fraction] 98 % Dr. Zach Turner MD Work Phone: 4(184)723-051696 [place] [address] 04-17-2025 14:36-0400 Systolic blood pressure 141 mm[Hg] Dr. Zach Turner MD Work Phone: 2(065)943-218796 [place] [address] 04-17-2025 06:00-0400 Body mass index (BMI) [Ratio] 26.7 kg/m2 Dr. Zach Turner MD Work Phone: 4(592)931-496196 [place] [address] 04-17-2025 06:00-0400 Body weight 89.[address] Zach Turner MD Work Phone: 1(418)005-202696 [place] [address] 04-16-2025 19:54-0400 Inhaled oxygen flow rate 2 L/min Dr. Zach Turner MD Work Phone: 1(209)691-929496 [place] [address] 04-16-2025 15:44-0400 Body height 182.[address] Zach Turner MD Work Phone: 8(499)368-924096 [place] [address] 04-15-2025 17:55-0400 Body temperature 97.9 [degF] Dr. Zach Turner MD Work Phone: 4(706)330-848396 [place] [address] 04-15-2025 17:55-0400 Diastolic blood pressure 90 mm[Hg] Dr. Zach Turner MD Work Phone: 8(824)188-817596 [place] [address] 04-15-2025 17:55-0400 Heart rate 63 /min Dr. Zach Turner MD Work Phone: 3(661)148-822396 [place] [address] 04-15-2025 17:55-0400 Respiratory rate 10 /min Dr. Zach Turner MD Work Phone: 0(912)219-496396 [place] [address] 04-15-2025 17:55-0400 SaO2% (BldA) [Mass fraction] 99 % Dr. Zach Turner MD Work Phone: 0(533)454-871596 [place] [address] 04-15-2025 17:55-0400 Systolic blood pressure 143 mm[Hg] Dr. Zach Turner MD Work Phone: 4(435)421-619196 [place] [address] 04-15-2025 15:13-0400 Body height 182.[address] Zach Turnre MD Work Phone: 3(217)624-970796 [place] [address] 04-15-2025 15:13-0400 Body mass index (BMI) [Ratio] 27 kg/m2 Dr. Zach Turner MD Work Phone: 9(303)155-985396 [place] [address] 04-15-2025 15:13-0400 Body weight 90.[address] Zach Turner MD Work Phone: 4(962)975-661596 [place] [address] 04-04-2025 13:13-0400 Body temperature 97.8 [degF] Dr. Zach Turner MD Work Phone: 7(116)064-352196 [place] [address] 04-04-2025 13:13-0400 Diastolic blood pressure 71 mm[Hg] Dr. Zach Turner MD Work Phone: 1(974)763-377296 [place] [address] 04-04-2025 13:13-0400 Heart rate 60 /min Dr. Zach Turner MD Work Phone: 9(540)996-068796 [place] [address] 04-04-2025 13:13-0400 Respiratory rate 16 /min Dr. Zach Turner MD Work Phone: 8(532)094-796996 [place] [address] 04-04-2025 13:13-0400 SaO2% (BldA) [Mass fraction] 100 % Dr. Zach Turner MD Work Phone: 0(210)557-510796 [place] [address] 04-04-2025 13:13-0400 Systolic blood pressure 129 mm[Hg] Dr. Zach Turner MD Work Phone: 5(851)035-550096 [place] [address] 04-04-2025 10:12-0400 Body mass index (BMI) [Ratio] 26.2 kg/m2 Dr. Zach Turner MD Work Phone: 4(166)440-233496 [place] [address] 04-04-2025 10:12-0400 Body weight 87.[address] Zach Turner MD Work Phone: 0(652)604-890296 [place] [address] 03-08-2025 11:21-0400 Body height 182.[address] Zach Turner MD Work Phone: [facility] 03-08-2025 11:21-0400 Body mass index (BMI) [Ratio] 25 kg/m2 Dr. Zach Turner MD Work Phone: [facility] 03-08-2025 11:21-0400 Body weight 83.[address] Zach Turner MD Work Phone: [facility] 03-08-2025 11:21-0400 Diastolic blood pressure 71 mm[Hg] Dr. Zach Turner MD Work Phone: [facility] 03-08-2025 11:21-0400 Heart rate 75 /min Dr. Zach Turner MD Work Phone: [facility] 03-08-2025 11:21-0400 Respiratory rate 18 /min Dr. Zach Turner MD Work Phone: [facility] 03-08-2025 11:21-0400 SaO2% (BldA) [Mass fraction] 98 % Dr. Zach Turner MD Work Phone: [facility] 03-08-2025 11:21-0400 Systolic blood pressure 111 mm[Hg] Dr. Zach Turner MD Work Phone: [facility] 02-28-2025 11:01-0400 Body mass index (BMI) [Ratio] 24.63 kg/m2 Christina Cartagena MD Work Phone: [facility] 02-28-2025 11:01-0400 Body weight 82.37 kg Christina Cartagena MD Work Phone: [facility] 02-28-2025 11:01-0400 Diastolic blood pressure 58 mm[Hg] Christina Cartagena MD Work Phone: [facility] 02-28-2025 11:01-0400 Systolic blood pressure 110 mm[Hg] Christina Cartagena MD Work Phone: [facility] 02-21-2025 09:58-0400 Body height 182.[address] Zach Turner MD Work Phone: [facility] 02-21-2025 09:58-0400 Body mass index (BMI) [Ratio] 24.8 kg/m2 Dr. Zach Turner MD Work Phone: [facility] 02-21-2025 09:58-0400 Body temperature 96.8 [degF] Dr. Zach Turner MD Work Phone: [facility] 02-21-2025 09:58-0400 Body weight 83.[address] Zach Turner MD Work Phone: [facility] 02-21-2025 09:58-0400 Diastolic blood pressure 65 mm[Hg] Dr. Zach Turner MD Work Phone: [facility] 02-21-2025 09:58-0400 Heart rate 71 /min Dr. Zach Turner MD Work Phone: [facility] 02-21-2025 09:58-0400 Respiratory rate 16 /min Dr. Zach Turner MD Work Phone: [facility] 02-21-2025 09:58-0400 SaO2% (BldA) [Mass fraction] 100 % Dr. Zach Turner MD Work Phone: [facility] 02-21-2025 09:58-0400 Systolic blood pressure 111 mm[Hg] Dr. Zach Turner MD Work Phone: [facility] 01-25-2025 12:01-0400 Body height 182.9 cm Coco Shah Jr., DO Work Phone: [facility] 01-25-2025 12:01-0400 Body mass index (BMI) [Ratio] 25.36 kg/m2 Coco Shah Jr., DO Work Phone: [facility] 01-25-2025 12:01-0400 Body weight 84.82 kg Coco Shah Jr., DO Work Phone: [facility] 01-25-2025 12:01-0400 Diastolic blood pressure 60 mm[Hg] Coco Shah Jr., DO Work Phone: [facility] 01-25-2025 12:01-0400 Systolic blood pressure 110 mm[Hg] Coco Shah Jr., DO Work Phone: [facility] 01-09-2025 09:59-0500 Body temperature 97.5 [degF] Dr. Zach Turner MD Work Phone: [facility] 01-09-2025 09:59-0500 Body weight 87.[address] Zach Turner MD Work Phone: [facility] 01-09-2025 09:59-0500 Diastolic blood pressure 69 mm[Hg] Dr. Zach Turner MD Work Phone: [facility] 01-09-2025 09:59-0500 Heart rate 78 /min Dr. Zach Turner MD Work Phone: [facility] 01-09-2025 09:59-0500 Respiratory rate 16 /min Dr. Zach Turner MD Work Phone: [facility] 01-09-2025 09:59-0500 SaO2% (BldA) [Mass fraction] 99 % Dr. Zach Turner MD Work Phone: [facility] 01-09-2025 09:59-0500 Systolic blood pressure 104 mm[Hg] Dr. Zach Turner MD Work Phone: [facility] 12-25-2024 10:15-0500 Body mass index (BMI) [Ratio] 25.6 kg/m2 Dr. Zach Turner MD Work Phone: [facility] 12-25-2024 10:15-0500 Body temperature 97.3 [degF] Dr. Zach Turner MD Work Phone: [facility] 12-25-2024 10:15-0500 Body weight 85.[address] Zach Turner MD Work Phone: [facility] 12-25-2024 10:15-0500 Diastolic blood pressure 79 mm[Hg] Dr. Zach Turner MD Work Phone: 1(200)265-415705 [place] [address] 12-25-2024 10:15-0500 Heart rate 79 /min Dr. Zach Turner MD Work Phone: 3(175)656-290996 [place] [address] 12-25-2024 10:15-0500 Respiratory rate 16 /min Dr. Zach Turner MD Work Phone: 2(787)723-201196 [place] [address] 12-25-2024 10:15-0500 SaO2% (BldA) [Mass fraction] 98 % Dr. Zach Turner MD Work Phone: 0(168)851-355596 [place] [address] 12-25-2024 10:15-0500 Systolic blood pressure 144 mm[Hg] Dr. Zach Turner MD Work Phone: 3(206)305-505996 [place] [address] 11-09-2024 10:14-0500 Body mass index (BMI) [Ratio] 27.7 kg/m2 Dr. Zach Turner MD Work Phone: 6(029)143-911305 [place] [address] 11-09-2024 10:14-0500 Body temperature 97 [degF] Dr. Zach Turner MD Work Phone: 9(357)896-860996 [place] [address] 11-09-2024 10:14-0500 Body weight 92.[address] Zach Turner MD Work Phone: 0(692)737-694096 [place] [address] 11-09-2024 10:14-0500 Diastolic blood pressure 68 mm[Hg] Dr. Zach Turner MD Work Phone: 9(245)033-216605 [place] [address] 11-09-2024 10:14-0500 Heart rate 84 /min Dr. Zach Turner MD Work Phone: 6(843)472-890096 [place] [address] 11-09-2024 10:14-0500 Respiratory rate 16 /min Dr. Zach Turner MD Work Phone: 0(231)031-956505 [place] [address] 11-09-2024 10:14-0500 SaO2% (BldA) [Mass fraction] 97 % Dr. Zach Turner MD Work Phone: 8(927)817-350405 [place] [address] 11-09-2024 10:14-0500 Systolic blood pressure 116 mm[Hg] Dr. Zach Turner MD Work Phone: [facility] 05-07-2024 11:55-0400 Body height 182.9 cm Coco Shah Jr., DO Work Phone: [facility] 05-07-2024 11:55-0400 Body mass index (BMI) [Ratio] 28.89 kg/m2 Coco Shah Jr., DO Work Phone: [facility] 05-07-2024 11:55-0400 Body weight 96.62 kg Coco Shah Jr., DO Work Phone: [facility] 05-07-2024 11:55-0400 Diastolic blood pressure 70 mm[Hg] Coco Shah Jr., DO Work Phone: [facility] 05-07-2024 11:55-0400 Heart rate 83 /min Coco Shah Jr., DO Work Phone: [facility] 05-07-2024 11:55-0400 SaO2% (BldA) [Mass fraction] 98 % Coco Shah Jr., DO Work Phone: [facility] 05-07-2024 11:55-0400 Systolic blood pressure 132 mm[Hg] Coco Shah Jr., DO Work Phone: [facility] 02-24-2024 10:11-0400 Body height 182.88 cm [facility] 02-24-2024 10:11-0400 Body mass index (BMI) [Ratio] 28.6 kg/m2 [facility] 02-24-2024 10:11-0400 Body temperature 97.2 [degF] [facility] 02-24-2024 10:11-0400 Body weight 95.88 kg [facility] 02-24-2024 10:11-0400 Diastolic blood pressure 52 mm[Hg] [facility] 02-24-2024 10:11-0400 Heart rate 80 /min [facility] 02-24-2024 10:11-0400 Respiratory rate 16 /min [facility] 02-24-2024 10:11-0400 SaO2% (BldA) [Mass fraction] 98 % [facility] 02-24-2024 10:11-0400 Systolic blood pressure 125 mm[Hg] [facility] 01-13-2024 10:21-0500 Body height 182.88 cm [facility] 01-13-2024 10:21-0500 Body mass index (BMI) [Ratio] 28 kg/m2 [facility] 01-13-2024 10:21-0500 Body temperature 97.4 [degF] [facility] 01-13-2024 10:21-0500 Body weight 93.89 kg [facility] 01-13-2024 10:21-0500 Diastolic blood pressure 79 mm[Hg] [facility] 01-13-2024 10:21-0500 Heart rate 72 /min [facility] 01-13-2024 10:21-0500 Respiratory rate 16 /min [facility] 01-13-2024 10:21-0500 SaO2% (BldA) [Mass fraction] 98 % [facility] 01-13-2024 10:21-0500 Systolic blood pressure 134 mm[Hg] [facility] 11-11-2023 10:04-0500 Body height 182.88 cm [facility] 11-11-2023 10:04-0500 Body mass index (BMI) [Ratio] 29 kg/m2 [facility] 11-11-2023 10:04-0500 Body temperature 97.4 [degF] [facility] 11-11-2023 10:04-0500 Body weight 97.25 kg [facility] 11-11-2023 10:04-0500 Diastolic blood pressure 63 mm[Hg] [facility] 11-11-2023 10:04-0500 Heart rate 77 /min [facility] 11-11-2023 10:04-0500 Respiratory rate 16 /min [facility] 11-11-2023 10:04-0500 SaO2% (BldA) [Mass fraction] 98 % [facility] 11-11-2023 10:04-0500 Systolic blood pressure 167 mm[Hg] [facility] 10-26-2023 14:38-0500 Body height 182.9 cm Coco Shah Jr., DO Work Phone: [facility] 10-26-2023 14:38-0500 Body mass index (BMI) [Ratio] 30.53 kg/m2 Coco Shah Jr., DO Work Phone: [facility] 10-26-2023 14:38-0500 Body temperature 98.71 [degF] Coco Shah Jr., DO Work Phone: [facility] 10-26-2023 14:38-0500 Body weight 102.1 kg Coco Shah Jr., DO Work Phone: [facility] 10-26-2023 14:38-0500 Diastolic blood pressure 78 mm[Hg] Coco Shah Jr., DO Work Phone: [facility] 10-26-2023 14:38-0500 Systolic blood pressure 118 mm[Hg] Coco Shah Jr., DO Work Phone: [facility] 09-30-2023 13:45-0500 Body temperature 97.1 [degF] [facility] 09-30-2023 13:45-0500 Diastolic blood pressure 67 mm[Hg] [facility] 09-30-2023 13:45-0500 Heart rate 75 /min [facility] 09-30-2023 13:45-0500 Systolic blood pressure 130 mm[Hg] [facility] 09-30-2023 10:09-0500 Body height 182.88 cm [facility] 09-30-2023 10:09-0500 Body mass index (BMI) [Ratio] 30.1 kg/m2 [facility] 09-30-2023 10:09-0500 Body weight 100.78 kg [facility] 09-30-2023 10:09-0500 Respiratory rate 16 /min [facility] 09-30-2023 10:09-0500 SaO2% (BldA) [Mass fraction] 99 % [facility] 08-19-2023 10:09-0400 Body height 182.88 cm [facility] 08-19-2023 10:09-0400 Body mass index (BMI) [Ratio] 29.1 kg/m2 [facility] 08-19-2023 10:09-0400 Body temperature 96.4 [degF] [facility] 08-19-2023 10:09-0400 Body weight 97.43 kg [facility] 08-19-2023 10:09-0400 Diastolic blood pressure 75 mm[Hg] [facility] 08-19-2023 10:09-0400 Heart rate 94 /min [facility] 08-19-2023 10:09-0400 Respiratory rate 16 /min [facility] 08-19-2023 10:09-0400 SaO2% (BldA) [Mass fraction] 99 % [facility] 08-19-2023 10:09-0400 Systolic blood pressure 143 mm[Hg] [facility] 07-08-2023 10:24-0400 Body height 182.88 cm [facility] 07-08-2023 10:24-0400 Body mass index (BMI) [Ratio] 29 kg/m2 [facility] 07-08-2023 10:24-0400 Body temperature 97.6 [degF] [facility] 07-08-2023 10:24-0400 Body weight 97.15 kg [facility] 07-08-2023 10:24-0400 Diastolic blood pressure 64 mm[Hg] [facility] 07-08-2023 10:24-0400 Heart rate 86 /min [facility] 07-08-2023 10:24-0400 Respiratory rate 16 /min [facility] 07-08-2023 10:24-0400 SaO2% (BldA) [Mass fraction] 98 % [facility] 07-08-2023 10:24-0400 Systolic blood pressure 125 mm[Hg] [facility] 07-04-2023 12:52-0400 Body height 182.9 cm Coco Shah JrKeerthi, DO Work Phone: [facility] 07-04-2023 12:52-0400 Body mass index (BMI) [Ratio] 30.53 kg/m2 Coco Shah Jr., DO Work Phone: [facility] 07-04-2023 12:52-0400 Body temperature 97.81 [degF] Coco Shah JrKeerthi, DO Work Phone: [facility] 07-04-2023 12:52-0400 Body weight 102.1 kg Coco Shah , DO Work Phone: [facility] 07-04-2023 12:52-0400 Diastolic blood pressure 84 mm[Hg] Coco Shah , DO Work Phone: [facility] 07-04-2023 12:52-0400 Systolic blood pressure 118 mm[Hg] Coco Shah JrKeerthi, DO Work Phone: [facility] 05-27-2023 09:58-0400 Body height 182.[address] Zach Turner Work Phone: [facility] 05-27-2023 09:58-0400 Body mass index (BMI) [Ratio] 28.6 kg/m2 Dr. Zach Turner Work Phone: [facility] 05-27-2023 09:58-0400 Body temperature 97.2 [degF] Dr. Zach Turner Work Phone: [facility] 05-27-2023 09:58-0400 Body weight 95.[address] Zach Turner Work Phone: [facility] 05-27-2023 09:58-0400 Diastolic blood pressure 52 mm[Hg] Dr. Zach Turner Work Phone: [facility] 05-27-2023 09:58-0400 Heart rate 62 /min Dr. Zach Turner Work Phone: [facility] 05-27-2023 09:58-0400 Respiratory rate 16 /min Dr. Zach Turner Work Phone: [facility] 05-27-2023 09:58-0400 SaO2% (BldA) [Mass fraction] 96 % Dr. Zach Turner Work Phone: [facility] 05-27-2023 09:58-0400 Systolic blood pressure 116 mm[Hg] Dr. Zach Turner Work Phone: [facility] 03-25-2023 09:41-0400 Body height 182.[address] Zach Turner Work Phone: [facility] 03-25-2023 09:41-0400 Body mass index (BMI) [Ratio] 29 kg/m2 Dr. Zach Turner Work Phone: [facility] 03-25-2023 09:41-0400 Body weight 97.[address] Zach Turner Work Phone: [facility] 03-25-2023 09:41-0400 Diastolic blood pressure 62 mm[Hg] Dr. Zach Turner Work Phone: [facility] 03-25-2023 09:41-0400 Heart rate 68 /min Dr. Zach Turner Work Phone: [facility] 03-25-2023 09:41-0400 Respiratory rate 16 /min Dr. Zach Turner Work Phone: [facility] 03-25-2023 09:41-0400 SaO2% (BldA) [Mass fraction] 100 % Dr. Zach Turner Work Phone: [facility] 03-25-2023 09:41-0400 Systolic blood pressure 137 mm[Hg] Dr. Zach Turner Work Phone: [facility] 02-27-2023 08:44-0400 Heart rate 68 /min [facility] 02-27-2023 08:28-0400 Body temperature 98 [degF] [facility] 02-27-2023 08:28-0400 Diastolic blood pressure 72 mm[Hg] [facility] 02-27-2023 08:28-0400 Respiratory rate 18 /min [facility] 02-27-2023 08:28-0400 SaO2% (BldA) [Mass fraction] 100 % [facility] 02-27-2023 08:28-0400 Systolic blood pressure 156 mm[Hg] [facility] 02-26-2023 10:29-0400 Body height 182.88 cm [facility] 02-26-2023 10:29-0400 Body weight 95.7 kg [facility] 02-25-2023 17:23-0400 Body mass index (BMI) [Ratio] 28.6 kg/m2 [facility] 02-25-2023 14:52-0400 Body temperature 98.2 [degF] [facility] 02-25-2023 14:52-0400 Diastolic blood pressure 62 mm[Hg] [facility] 02-25-2023 14:52-0400 Heart rate 82 /min [facility] 02-25-2023 14:52-0400 Respiratory rate 18 /min [facility] 02-25-2023 14:52-0400 SaO2% (BldA) [Mass fraction] 96 % [facility] 02-25-2023 14:52-0400 Systolic blood pressure 145 mm[Hg] [facility] 02-25-2023 12:02-0400 Body height 182.88 cm [facility] 02-25-2023 12:02-0400 Body mass index (BMI) [Ratio] 29 kg/m2 [facility] 02-25-2023 12:02-0400 Body weight 97.29 kg [facility] 02-11-2023 09:33-0400 Body height 182.88 cm [facility] 02-11-2023 09:33-0400 Body mass index (BMI) [Ratio] 29 kg/m2 [facility] 02-11-2023 09:33-0400 Body temperature 97 [degF] [facility] 02-11-2023 09:33-0400 Body weight 96.88 kg [facility] 02-11-2023 09:33-0400 Diastolic blood pressure 59 mm[Hg] [facility] 02-11-2023 09:33-0400 Heart rate 45 /min [facility] 02-11-2023 09:33-0400 Respiratory rate 16 /min [facility] 02-11-2023 09:33-0400 SaO2% (BldA) [Mass fraction] 100 % [facility] 02-11-2023 09:33-0400 Systolic blood pressure 154 mm[Hg] [facility] 01-06-2023 10:40-0500 Body temperature 95.1 [degF] [facility] 01-06-2023 10:40-0500 Diastolic blood pressure 75 mm[Hg] [facility] 01-06-2023 10:40-0500 Heart rate 57 /min [facility] 01-06-2023 10:40-0500 Systolic blood pressure 96 mm[Hg] [facility] 12-31-2022 10:24-0500 Body mass index (BMI) [Ratio] 29.1 kg/m2 [facility] 12-31-2022 10:24-0500 Body temperature 96.6 [degF] [facility] 12-31-2022 10:24-0500 Body weight 97.52 kg [facility] 12-31-2022 10:24-0500 Diastolic blood pressure 78 mm[Hg] [facility] 12-31-2022 10:24-0500 Heart rate 56 /min [facility] 12-31-2022 10:24-0500 Respiratory rate 16 /min [facility] 12-31-2022 10:24-0500 SaO2% (BldA) [Mass fraction] 100 % [facility] 12-31-2022 10:24-0500 Systolic blood pressure 149 mm[Hg] [facility] 12-30-2022 10:20-0500 Respiratory rate 18 /min [facility] 12-01-2022 09:50-0500 Body temperature 96.3 [degF] Dr. Zach Turner Work Phone: [facility] 12-01-2022 09:50-0500 Diastolic blood pressure 67 mm[Hg] Dr. Zach Turner Work Phone: [facility] 12-01-2022 09:50-0500 Heart rate 67 /min Dr. Zach Turner Work Phone: 1(446)839-834239 [address] 12-01-2022 09:50-0500 Systolic blood pressure 139 mm[Hg] Dr. Zach Turner Work Phone: 8(631)719-160496 [place] [address] 11-24-2022 09:40-0500 Respiratory rate 16 /min Dr. Zach Turner Work Phone: 7(743)717-134639 [address] 11-19-2022 10:18-0500 Body height 182.[address] Zach Turner Work Phone: 3(634)434-941996 [place] [address] 11-19-2022 10:18-0500 Body mass index (BMI) [Ratio] 30.4 kg/m2 Dr. Zach Turner Work Phone: 2(264)464-619696 [place] [address] 11-19-2022 10:18-0500 Body temperature 97.3 [degF] Dr. Zach Turner Work Phone: 5(904)250-555996 [place] [address] 11-19-2022 10:18-0500 Body weight 101.[address] Zach Turner Work Phone: 3(822)560-494696 [place] [address] 11-19-2022 10:18-0500 Diastolic blood pressure 67 mm[Hg] Dr. Zach Turner Work Phone: 7(656)140-890739 [address] 11-19-2022 10:18-0500 Heart rate 60 /min Dr. Zach Turner Work Phone: 9(832)918-353305 [place] [address] 11-19-2022 10:18-0500 Respiratory rate 18 /min Dr. Zach Turner Work Phone: 7(756)665-906696 [place] [address] 11-19-2022 10:18-0500 SaO2% (BldA) [Mass fraction] 100 % Dr. Zach Turner Work Phone: 3(211)759-398805 [place] [address] 11-19-2022 10:18-0500 Systolic blood pressure 151 mm[Hg] Dr. Zach Turner Work Phone: 1(026)753-300105 [place] [address] 11-10-2022 09:44-0500 Body temperature 96.9 [degF] Dr. Zach Turner Work Phone: [facility] 11-10-2022 09:44-0500 Diastolic blood pressure 86 mm[Hg] Dr. Zach Turner Work Phone: [facility] 11-10-2022 09:44-0500 Heart rate 75 /min Dr. Zcah Turner Work Phone: [facility] 11-10-2022 09:44-0500 Systolic blood pressure 152 mm[Hg] Dr. Zach Turner Work Phone: [facility] 10-27-2022 09:47-0500 Respiratory rate 16 /min Dr. Zach Turner Work Phone: [facility] 10-13-2022 10:01-0500 Body temperature 95.6 [degF] Dr. Zach Turner Work Phone: [facility] 10-13-2022 10:01-0500 Diastolic blood pressure 77 mm[Hg] Dr. Zach Turner Work Phone: [facility] 10-13-2022 10:01-0500 Heart rate 60 /min Dr. Zach Turner Work Phone: [facility] 10-13-2022 10:01-0500 Systolic blood pressure 154 mm[Hg] Dr. Zach Turner Work Phone: [facility] 10-08-2022 10:12-0500 Body height 182.[address] Zach Turner Work Phone: [facility] Work Phone: 10-08-2022 10:12-0500 Body mass index (BMI) [Ratio] 30.2 kg/m2 Dr. Zach Turner Work Phone: [facility] 10-08-2022 10:12-0500 Body temperature 96.2 [degF] Dr. Zach Turner Work Phone: [facility] 10-08-2022 10:12-0500 Body weight 101.[address] Zach Turner Work Phone: [facility] 10-08-2022 10:12-0500 Diastolic blood pressure 63 mm[Hg] Dr. Zach Turner Work Phone: [facility] 10-08-2022 10:12-0500 Heart rate 64 /min Dr. Zach Turner Work Phone: [facility] 10-08-2022 10:12-0500 Respiratory rate 16 /min Dr. Zach Turner Work Phone: [facility] 10-08-2022 10:12-0500 SaO2% (BldA) [Mass fraction] 97 % Dr. Zach Turner Work Phone: [facility] 10-08-2022 10:12-0500 Systolic blood pressure 114 mm[Hg] Dr. Zach Turner Work Phone: [facility] 10-06-2022 10:07-0500 Respiratory rate 16 /min Dr. Zach Turner Work Phone: [facility] 09-20-2022 13:00-0500 Body height 182.9 cm Coco Shah Jr., DO Work Phone: [facility] 09-20-2022 13:00-0500 Body mass index (BMI) [Ratio] 30.52 kg/m2 Coco Shah Jr., DO Work Phone: [facility] 09-20-2022 13:00-0500 Body temperature 98.01 [degF] Coco Shah Jr., DO Work Phone: [facility] 09-20-2022 13:00-0500 Body weight 102.06 kg Coco Shah Jr., DO Work Phone: [facility] 09-20-2022 13:00-0500 Diastolic blood pressure 78 mm[Hg] Coco Shah Jr., DO Work Phone: [facility] 09-20-2022 13:00-0500 Heart rate 70 /min Coco Shah Jr., DO Work Phone: [facility] 09-20-2022 13:00-0500 SaO2% (BldA) [Mass fraction] 97 % Coco Shah Jr., DO Work Phone: [facility] 09-20-2022 13:00-0500 Systolic blood pressure 134 mm[Hg] Coco Shah Jr., DO Work Phone: [facility] 09-08-2022 10:26-0400 Body temperature 97.3 [degF] Dr. Zach Turner Work Phone: [facility] 09-08-2022 10:26-0400 Diastolic blood pressure 82 mm[Hg] Dr. Zach Turner Work Phone: [facility] 09-08-2022 10:26-0400 Heart rate 59 /min Dr. aZch Turner Work Phone: [facility] 09-08-2022 10:26-0400 Respiratory rate 18 /min Dr. Zach Turner Work Phone: [facility] 09-08-2022 10:26-0400 Systolic blood pressure 145 mm[Hg] Dr. Zach Turner Work Phone: [facility] 08-27-2022 09:11-0400 Body temperature 97.5 [degF] [facility] 08-27-2022 09:11-0400 Body weight 100.51 kg [facility] 08-27-2022 09:11-0400 Diastolic blood pressure 79 mm[Hg] [facility] 08-27-2022 09:11-0400 Heart rate 78 /min [facility] 08-27-2022 09:11-0400 SaO2% (BldA) [Mass fraction] 98 % [facility] 08-27-2022 09:11-0400 Systolic blood pressure 110 mm[Hg] [facility] 08-25-2022 10:20-0400 Body temperature 96.7 [degF] [facility] Work Phone: 08-25-2022 10:20-0400 Diastolic blood pressure 56 mm[Hg] [facility] Work Phone: 08-25-2022 10:20-0400 Heart rate 54 /min [facility] Work Phone: 08-25-2022 10:20-0400 Respiratory rate 16 /min [facility] Work Phone: 08-25-2022 10:20-0400 Systolic blood pressure 124 mm[Hg] [facility] Work Phone: 08-11-2022 10:27-0400 Body temperature 95.9 [degF] [facility] 08-11-2022 10:27-0400 Diastolic blood pressure 77 mm[Hg] [facility] 08-11-2022 10:27-0400 Heart rate 74 /min [facility] 08-11-2022 10:27-0400 Respiratory rate 16 /min [facility] 08-11-2022 10:27-0400 Systolic blood pressure 131 mm[Hg] [facility] 07-21-2022 11:23-0400 Body temperature 97.5 [degF] [facility] Work Phone: 07-21-2022 11:23-0400 Diastolic blood pressure 64 mm[Hg] [facility] Work Phone: 07-21-2022 11:23-0400 Heart rate 72 /min [facility] Work Phone: 07-21-2022 11:23-0400 Systolic blood pressure 148 mm[Hg] [facility] Work Phone: 07-16-2022 09:13-0400 Body height 182.88 cm [facility] Work Phone: 07-16-2022 09:13-0400 Body mass index (BMI) [Ratio] 29.6 kg/m2 [facility] Work Phone: 07-16-2022 09:13-0400 Body temperature 96.4 [degF] [facility] Work Phone: 07-16-2022 09:13-0400 Body weight 99.15 kg [facility] Work Phone: 07-16-2022 09:13-0400 Diastolic blood pressure 75 mm[Hg] [facility] Work Phone: 07-16-2022 09:13-0400 Heart rate 64 /min [facility] Work Phone: 07-16-2022 09:13-0400 Respiratory rate 16 /min [facility] Work Phone: 07-16-2022 09:13-0400 SaO2% (BldA) [Mass fraction] 99 % [facility] Work Phone: 07-16-2022 09:13-0400 Systolic blood pressure 123 mm[Hg] [facility] Work Phone: 07-15-2022 00:35-0400 Respiratory rate 16 /min [facility] Work Phone: 07-14-2022 10:58-0400 Body temperature 97.5 [degF] [facility] Work Phone: 07-14-2022 10:58-0400 Diastolic blood pressure 71 mm[Hg] [facility] Work Phone: 07-14-2022 10:58-0400 Heart rate 70 /min [facility] Work Phone: 07-14-2022 10:58-0400 Respiratory rate 16 /min [facility] Work Phone: 07-14-2022 10:58-0400 Systolic blood pressure 121 mm[Hg] [facility] Work Phone: 06-16-2022 09:06-0400 Body temperature 96.2 [degF] [facility] Work Phone: 06-16-2022 09:06-0400 Diastolic blood pressure 86 mm[Hg] [facility] Work Phone: 06-16-2022 09:06-0400 Heart rate 68 /min [facility] Work Phone: 06-16-2022 09:06-0400 Respiratory rate 16 /min [facility] Work Phone: 06-16-2022 09:06-0400 Systolic blood pressure 139 mm[Hg] [facility] Work Phone: 06-09-2022 09:19-0400 Body temperature 97.2 [degF] [facility] Work Phone: 06-09-2022 09:19-0400 Diastolic blood pressure 61 mm[Hg] [facility] Work Phone: 06-09-2022 09:19-0400 Heart rate 78 /min [facility] Work Phone: 06-09-2022 09:19-0400 Systolic blood pressure 142 mm[Hg] [facility] Work Phone: 06-04-2022 10:28-0400 Body temperature 97.1 [degF] [facility] Work Phone: 06-04-2022 10:28-0400 Diastolic blood pressure 63 mm[Hg] [facility] Work Phone: 06-04-2022 10:28-0400 Heart rate 52 /min [facility] Work Phone: 06-04-2022 10:28-0400 Respiratory rate 16 /min [facility] Work Phone: 06-04-2022 10:28-0400 SaO2% (BldA) [Mass fraction] 99 % [facility] Work Phone: 06-04-2022 10:28-0400 Systolic blood pressure 115 mm[Hg] [facility] Work Phone: 06-04-2022 10:08-0400 Body weight 95.27 kg [facility] Work Phone: 05-19-2022 12:29-0400 Body height 182.9 cm Coco Shah Jr., DO Work Phone: [facility] 05-19-2022 12:29-0400 Body mass index (BMI) [Ratio] 29.57 kg/m2 Coco Shah Jr., DO Work Phone: [facility] 05-19-2022 12:29-0400 Body weight 98.88 kg Coco Ashishfabienne Wilson, DO Work Phone: [employer] [facility] 05-19-2022 12:29-0400 Diastolic blood pressure 82 mm[Hg] Coco Shah Jr., DO Work Phone: [facility] 05-19-2022 12:29-0400 Heart rate 65 /min Coco Shah Jr., DO Work Phone: [facility] 05-19-2022 12:29-0400 SaO2% (BldA) [Mass fraction] 99 % Coco Shah Jr., DO Work Phone: [employer] [facility] 05-19-2022 12:29-0400 Systolic blood pressure 128 mm[Hg] Coco Shah Jr., DO Work Phone: [facility] 05-14-2022 00:46-0400 Respiratory rate 17 /min [facility] Work Phone: 05-12-2022 09:11-0400 Body temperature 97.1 [degF] Dr. Zach Turner Work Phone: [facility] Work Phone: 05-12-2022 09:11-0400 Diastolic blood pressure 88 mm[Hg] Dr. Zach Turner Work Phone: [facility] Work Phone: 05-12-2022 09:11-0400 Heart rate 84 /min Dr. Zach Turner Work Phone: [facility] Work Phone: 05-12-2022 09:11-0400 Respiratory rate 17 /min Dr. Zach Turner Work Phone: [facility] Work Phone: 05-12-2022 09:11-0400 Systolic blood pressure 151 mm[Hg] Dr. Zach Turner Work Phone: [facility] Work Phone: 04-09-2022 10:21-0400 Body temperature 97.6 [degF] Dr. Zach Turner Work Phone: [facility] Work Phone: 04-09-2022 10:21-0400 Body weight 99.[address] Zach Turner Work Phone: [facility] Work Phone: 04-09-2022 10:21-0400 Diastolic blood pressure 88 mm[Hg] Dr. Zach Turner Work Phone: [facility] Work Phone: 04-09-2022 10:21-0400 Heart rate 62 /min Dr. Zach Turner Work Phone: [facility] Work Phone: 04-09-2022 10:21-0400 Respiratory rate 12 /min Dr. Zach Turner Work Phone: [facility] Work Phone: 04-09-2022 10:21-0400 SaO2% (BldA) [Mass fraction] 96 % Dr. Zach Turner Work Phone: [facility] Work Phone: 04-09-2022 10:21-0400 Systolic blood pressure 140 mm[Hg] Dr. Zach Turner Work Phone: [facility] Work Phone: 02-22-2022 13:30-0400 Body height 182.[address] Zach Turner Work Phone: [facility] Work Phone: 02-22-2022 13:30-0400 Body mass index (BMI) [Ratio] 29.8 kg/m2 Dr. Zach Turner Work Phone: [facility] Work Phone: 02-22-2022 13:30-0400 Body temperature 96.7 [degF] Dr. Zach Turner Work Phone: [facility] Work Phone: 02-22-2022 13:30-0400 Body weight 99.[address] Zach Turner Work Phone: [facility] Work Phone: 02-22-2022 13:30-0400 Diastolic blood pressure 115 mm[Hg] Dr. Zach Turner Work Phone: [facility] Work Phone: 02-22-2022 13:30-0400 Heart rate 59 /min Dr. Zach Turner Work Phone: [facility] Work Phone: 02-22-2022 13:30-0400 Respiratory rate 18 /min Dr. Zach Turner Work Phone: [facility] Work Phone: 02-22-2022 13:30-0400 SaO2% (BldA) [Mass fraction] 99 % Dr. Zach Turner Work Phone: [facility] Work Phone: 02-22-2022 13:30-0400 Systolic blood pressure 157 mm[Hg] Dr. Zach Turner Work Phone: [facility] Work Phone: 02-12-2022 10:08-0400 Body height 182.[address] Zach Turner Work Phone: [facility] Work Phone: 02-12-2022 10:08-0400 Body mass index (BMI) [Ratio] 30.2 kg/m2 Dr. Zach Turner Work Phone: [facility] Work Phone: 02-12-2022 10:08-0400 Body temperature 96.8 [degF] Dr. Zach Turner Work Phone: [facility] Work Phone: 02-12-2022 10:08-0400 Body weight 100.[address] Zach Turner Work Phone: [facility] Work Phone: 02-12-2022 10:08-0400 Diastolic blood pressure 103 mm[Hg] Dr. Zach Turner Work Phone: [facility] Work Phone: 02-12-2022 10:08-0400 Heart rate 83 /min Dr. Zach Turner Work Phone: [facility] Work Phone: 02-12-2022 10:08-0400 Respiratory rate 16 /min Dr. Zach Turner Work Phone: [facility] Work Phone: 02-12-2022 10:08-0400 SaO2% (BldA) [Mass fraction] 97 % Dr. Zach Turner Work Phone: [facility] Work Phone: 02-12-2022 10:08-0400 Systolic blood pressure 149 mm[Hg] Dr. Zach Turner Work Phone: [facility] Work Phone: 02-03-2022 11:21-0400 Body mass index (BMI) [Ratio] 30.1 kg/m2 Dr. Zach Turner Work Phone: [facility] Work Phone: 02-03-2022 11:21-0400 Body weight 100.[address] Zach Turner Work Phone: [facility] Work Phone: 02-03-2022 11:21-0400 Diastolic blood pressure 69 mm[Hg] Dr. Zach Turner Work Phone: [facility] Work Phone: 02-03-2022 11:21-0400 Heart rate 57 /min Dr. Zach Turner Work Phone: [facility] Work Phone: 02-03-2022 11:21-0400 Respiratory rate 18 /min Dr. Zach Turner Work Phone: [facility] Work Phone: 02-03-2022 11:21-0400 Systolic blood pressure 136 mm[Hg] Dr. Zach Turner Work Phone: [facility] Work Phone: 02-03-2022 11:21-0400 Body height 182.[address] Zach Turner Work Phone: [facility] Work Phone: 02-03-2022 11:21-0400 Body mass index (BMI) [Ratio] 30.1 kg/m2 Dr. Zach Turner Work Phone: [facility] Work Phone: 02-03-2022 11:21-0400 Body weight 100.[address] Zach Turner Work Phone: [facility] Work Phone: 02-03-2022 11:21-0400 Diastolic blood pressure 69 mm[Hg] Dr. Zach Turner Work Phone: [facility] Work Phone: 02-03-2022 11:21-0400 Heart rate 57 /min Dr. Zach Turner Work Phone: [facility] Work Phone: 02-03-2022 11:21-0400 Respiratory rate 18 /min Dr. Zach Turner Work Phone: [facility] Work Phone: 02-03-2022 11:21-0400 Systolic blood pressure 136 mm[Hg] Dr. Zach Turner Work Phone: [facility] Work Phone: 12-15-2021 09:10-0500 Body mass index (BMI) [Ratio] 31.1 kg/m2 Dr. Zach Turner Work Phone: [facility] Work Phone: 12-15-2021 09:10-0500 Body temperature 96.7 [degF] Dr. Zach Turner Work Phone: [facility] Work Phone: 12-15-2021 09:10-0500 Body weight 104.[address] Zach Turner Work Phone: [facility] Work Phone: 12-15-2021 09:10-0500 Diastolic blood pressure 74 mm[Hg] Dr. Zach Turner Work Phone: [facility] Work Phone: 12-15-2021 09:10-0500 Heart rate 63 /min Dr. Zach Turner Work Phone: [facility] Work Phone: 12-15-2021 09:10-0500 Respiratory rate 16 /min Dr. Zach Turner Work Phone: [facility] Work Phone: 12-15-2021 09:10-0500 SaO2% (BldA) [Mass fraction] 98 % Dr. Zach Turner Work Phone: [facility] Work Phone: 12-15-2021 09:10-0500 Systolic blood pressure 144 mm[Hg] Dr. Zach Turner Work Phone: [facility] Work Phone: 10-20-2021 09:00-0500 Body mass index (BMI) [Ratio] 29.9 kg/m2 Dr. Zach Turner Work Phone: [facility] Work Phone: 10-20-2021 09:00-0500 Body temperature 96 [degF] Dr. Zach Turner Work Phone: [facility] Work Phone: 10-20-2021 09:00-0500 Body weight 100.[address] Zach Turner Work Phone: [facility] Work Phone: 10-20-2021 09:00-0500 Diastolic blood pressure 67 mm[Hg] Dr. Zach Turner Work Phone: [facility] Work Phone: 10-20-2021 09:00-0500 Heart rate 68 /min Dr. Zach Turner Work Phone: [facility] Work Phone: 10-20-2021 09:00-0500 Respiratory rate 16 /min Dr. Zach Turner Work Phone: [facility] Work Phone: 10-20-2021 09:00-0500 Systolic blood pressure 141 mm[Hg] Dr. Zach Turner Work Phone: [facility] Work Phone: 03-23-2021 11:26-0400 Body height 182.9 cm Coco Shah Jr., DO Work Phone: [facility] 03-23-2021 11:26-0400 Body mass index (BMI) [Ratio] 31.87 kg/m2 Coco Shah Jr., DO Work Phone: [facility] 03-23-2021 11:26-0400 Body temperature 98.4 [degF] Coco Shah Jr., DO Work Phone: [facility] 03-23-2021 11:26-0400 Body weight 106.59 kg Coco Shah Jr., DO Work Phone: [facility] 03-23-2021 11:26-0400 Diastolic blood pressure 72 mm[Hg] Coco Shah Jr., DO Work Phone: [facility] 03-23-2021 11:26-0400 Heart rate 73 /min Coco Shah Jr., DO Work Phone: [facility] 03-23-2021 11:26-0400 SaO2% (BldA) [Mass fraction] 96 % Coco Shah Jr., DO Work Phone: [facility] 03-23-2021 11:26-0400 Systolic blood pressure 128 mm[Hg] Coco Shah Jr., DO Work Phone: [facility] 09-22-2020 11:26-0500 BMI (Body Mass Index) 32.14 kg/m2 [facility] 09-22-2020 11:26-0500 Body Temperature 97.11 [degF] [facility] 09-22-2020 11:26-0500 Body weight 107.5 kg [facility] 09-22-2020 11:26-0500 BP Diastolic 82 mm[Hg] [facility] 09-22-2020 11:26-0500 BP Systolic 122 mm[Hg] [facility] 09-22-2020 11:26-0500 Height 182.9 cm [facility] 09-22-2020 11:26-0500 Pulse (Heart Rate) 64 /min [facility] 09-22-2020 11:26-0500 Pulse Oximetry 99 % [facility] 05-14-2020 10:54-0400 BMI (Body Mass Index) 30.79 kg/m2 [facility] 05-14-2020 10:54-0400 Body Temperature 98.29 [degF] [facility] 05-14-2020 10:54-0400 Body weight 102.97 kg [facility] 05-14-2020 10:54-0400 BP Diastolic 72 mm[Hg] [facility] 05-14-2020 10:54-0400 BP Systolic 130 mm[Hg] [facility] 05-14-2020 10:54-0400 Height 182.9 cm [facility] 05-14-2020 10:54-0400 Pulse (Heart Rate) 69 /min [facility] 05-14-2020 10:54-0400 Pulse Oximetry 97 % [facility] 10-08-2019 10:26-0500 BMI (Body Mass Index) 30.65 kg/m2 [facility] 10-08-2019 10:26-0500 Body Temperature 97 [degF] [facility] 10-08-2019 10:26-0500 Body weight 102.51 kg [facility] 10-08-2019 10:26-0500 BP Diastolic 74 mm[Hg] [facility] 10-08-2019 10:26-0500 BP Systolic 128 mm[Hg] [facility] 10-08-2019 10:26-0500 Height 182.9 cm [facility] 10-08-2019 10:26-0500 Pulse (Heart Rate) 68 /min [facility] 10-08-2019 10:26-0500 Pulse Oximetry 97 % [facility] 01-22-2019 07:43-0400 BMI (Body Mass Index) 32.4 kg/m2 [facility] 01-22-2019 07:43-0400 Body Temperature 96.21 [degF] [facility] 01-22-2019 07:43-0400 Body weight 108.36 kg [facility] 01-22-2019 07:43-0400 BP Diastolic 78 mm[Hg] [facility] 01-22-2019 07:43-0400 BP Systolic 140 mm[Hg] [facility] 01-22-2019 07:43-0400 Height 182.9 cm [facility] 01-22-2019 07:43-0400 Pulse (Heart Rate) 51 /min [facility] 01-22-2019 07:43-0400 Pulse Oximetry 97 % [facility] 10-03-2017 08:10-0500 BMI (Body Mass Index) 31.87 kg/m2 MD [facility] Work Phone: 10-03-2017 08:10-0500 BP Diastolic 80 mm[Hg] MD [facility] Work Phone: 10-03-2017 08:10-0500 BP Systolic 140 mm[Hg] MD [facility] Work Phone: 10-03-2017 08:10-0500 Height 182.88 cm MD [facility] Work Phone: 10-03-2017 08:10-0500 Pulse [...] Weight 108.64 kg MD [facility] Work Phone: Encounters Encounter Date Encounter Type Care Provider Facility Start: 08-05-2025 ambulatory SELF SELF [facility] Start: 07-02-2025 ambulatory Luz Canalesi ty:[facility] Start: 06-27-2025 ambulatory Coco buchanan Jr. Facility:[facility] Start: 06-21-2025 End: 06-21-2025 Emergency department patient visit Dr. Zach Turner MD Work Phone: -Emergency Department Work Phone: Start: 06-14-2025 ambulatory Coco buchanan Jr. Facility:[facility] Start: 06-12-2025 End: 06-12-2025 Office outpatient visit 25 minutes Georgina Moore MD Work Phone: [facility] Comment on above: Skin lesion (Primary Dx); Pruritus Start: 06-12-2025 End: 06-12-2025 ambulatory [facility] Start: 06-11-[address] Keerthi Shah MD -[facility] [place] Work Phone: Start: 06-11-2025 ambulatory Coco buchanan Jr. Facility:[facility] Start: 06-07-2025 End: 06-07-[address] Coco Shah MD -[facility] Work Phone: Start: 06-07-2025 End: 06-07-[address] Zach Turner MD Work Phone: -[facility] Start: 05-30-2025 End: 05-30-2025 Office outpatient visit 25 minutes Christina Cartagena MD Work Phone: [facility] Nephrology 2 Comment on above: Stage 3b chronic kid marleny disease (Primary Dx) Start: 05-30-2025 ambulatory ZACH Livia [facility] Start: 05-28-2025 End: 06-13-[address] Coco Shah MD -[facility] [place] Work Phone: Start: 05-28-[address] Coco Shah MD -[facility] Work Phone: Start: 05-28-2025 End: 06-13-[address] Zach Turner MD Work Phone: -[facility] [place] Start: 05-24-2025 End: 05-24-[address] Zach Turner MD Work Phone: -[facility] Start: 05-24-2025 End: 05-24-[address] Memo Hernández MD -[facility] [place] Work Phone: Start: 05-24-2025 End: 05-24-2025 ambulatory Memo Hernández Facility:[facility] Start: 05-22-2025 ambulatory [facility] Start: 05-22-2025 End: 05-22-2025 Subsequent hospital visit by physician Christina Cartagena MD Work Phone: [facility] Comment on above: Arrived Start: 05-14-2025 End: 05-14-[address] Zach Turner MD Work Phone: -[facility] Start: 05-14-2025 End: 05-14-[address] Latonia Berry MD -[facility] Work Phone: Start: 05-14-2025 End: 05-14-2025 ambulatory Latonia Berry Facility:[facility] Start: 04-17-2025 Non-patient / Non-visit Dr. Coco hood MD -[facility] Work Phone: Start: 04-16-2025 Non-patient / Non-visit Dr. Coco hood MD -[facility] Work Phone: Start: 04-15-2025 ambulatory Coco Pepe Facility:[facility] Start: 04-15-2025 End: 04-17-2025 Evaluation and management of inpatient Dr. Coco Pepe MD -Medical Surgical 3 Work Phone: Start: 04-04-2025 End: 04-04-[address] Coco Shah MD -[facility] Out Work Phone: Start: 04-04-2025 End: 04-04-2025 ambulatory Zach Turner Facility:[facility] Start: 03-27-2025 End: 03-27-[address] Zach Turner MD Work Phone: [facility] Work Phone: Start: 03-27-2025 End: 03-27-[address] Patrick MOHAMUD -[facility] [place] Work Phone: Start: 03-27-2025 End: 03-27-2025 ambulatory Zach Turner Facility:[facility] Start: 03-08-2025 End: 03-08-[address] Chevy Gayr MD -[facility] Work Phone: Start: 03-08-2025 End: 03-08-2025 ambulatory Zach Turner Facility:[facility] Start: 02-28-2025 End: 02-28-2025 Office outpatient new 45 minutes Christina Cartagena MD Work Phone: [facility] Ne[facility]rology 2 Comment on above: Stage 3b chronic kid marleny disease (Primary Dx) Start: 02-28-2025 ambulatory [facility] Start: 02-26-2025 End: 03-13-[address] Coco Shah MD -Laboratory Work Phone: Start: 02-26-2025 End: 03-13-2025 ambulatory Coco Shah Jr. Facility:[facility] Start: 02-21-2025 End: 02-21-[address] Coco Shah MD -[facility] Out Work Phone: Start: 02-21-2025 End: 02-21-[address] Zach Turner MD Work Phone: [facility] Work Phone: Start: 01-25-2025 End: 01-25-2025 Office outpatient visit 40 minutes Coco Shah DO Work Phone: [facility] Comment on above: Psoriatic arthritis (Primary Dx); Primary osteoarthritis of both knees; Cervical disc disorder, unspecified, unspecified cervical region; Cervical disc disorder; Macrocytic anemia; Hyperchromic anemia; Vesicular palmoplantar eczema; Senile lentigo; Seborrheic keratosis; Seborrheic eczema; Pustulosis palmaris et plantaris; Psoriasis; Photoaged skin; Other skin changes due to chronic exposure to nonionizing radiation; Eczema, unspecified type; Asteatosis cutis; Actinic keratosis; Other proteinuria; Other care home (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; On statin therapy; 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, intermodal dispatcher, 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; Nocturia; Long-term current use of high risk medication other than anticoagulant; 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; Infliximab (Remicade) long-term use; History of osteomyelitis; History of malignant neoplasm of skin; Difficulty in urination; Current use of care home anticoagulation; Abnormal renal function test; Psoriatic arthritis mutilans; Encounter for long-term (current) use of non-steroidal anti-inflammatories; 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 Start: 12-25-2024 End: 12-25-[address] Coco Shah MD -Medical Out Work Phone: Start: 12-25-2024 End: 12-25-2024 ambulatory Zach Turner Facility:[facility] Start: 11-19-2024 ambulatory SELF SELF [facility] Start: 11-09-2024 End: 11-09-[address] Coco Shah MD -Medical Out Work Phone: Start: 11-09-2024 End: 11-09-2024 ambulatory Coco Shah Jr. Facility:[facility] Start: 10-31-2024 End: 10-31-2024 Office outpatient visit 25 minutes Georgina Moore MD Work Phone: [facility] [place] Comment on above: Actinic keratoses (P rimary Dx); Stasis dermatitis Start: 10-31-2024 End: 10-31-2024 ambulatory [facility] Start: 10-30-2024 End: 10-30-[address] Zach Turner MD -Laboratory, [facility] Start: 10-30-2024 End: 10-30-2024 ambulatory Zach Turner Facility:[facility] Start: 10-08-2024 End: 10-08-2024 ambulatory Zach Turner Facility:[facility] Start: 10-02-2024 End: 10-02-2024 ambulatory Zach Turner Facility:[facility] Start: 09-30-2024 End: 09-30-2024 Emergency department patient visit Bhanu Lopes Facility:[facility] Start: 09-28-2024 End: 09-28-2024 ambulatory Coco Shah Jr. Facility:[facility] Start: 09-07-2024 End: 09-07-2024 ambulatory Coco Shah Jr. Facility:[facility] Start: 08-22-2024 End: 08-22-2024 ambulatory Coco Shah Jr. Facility:[facility] Start: 08-10-2024 End: 08-10-2024 ambulatory Coco Shah Jr. Facility:[facility] Start: 08-06-2024 End: 08-06-2024 ambulatory Jose Pearce Facility:[facility] Start: 07-27-2024 End: 07-27-2024 ambulatory Chevy Abdirahman Facility:[facility] Start: 07-17-2024 End: 07-23-2024 Telephone encounter Georgina Moore MD Work Phone: [facility] - [place] [facility] Comment on above: Appointment Request Start: 07-11-2024 End: 07-11-2024 Office outpatient new 45 minutes Georgina Moore MD Work Phone: [facility] Dermatology Comment on above: Neoplasm of uncertai n behavior of skin (Primary Dx); Actinic keratoses Start: 07-11-2024 End: 07-11-2024 [facility] Start: 06-29-2024 End: 06-29-2024 ambulatory Coco Shah Jr. Facility:[facility] Start: 05-07-2024 End: 05-07-2024 Office outpatient visit 15 minutes Coco Shah DO Work Phone: [facility] Rheumatology Comment on above: Psoriatic arthritis (Primary Dx); Psoriatic arthritis mutilans; Hyperchromic anemia; Macrocytic anemia; Abnormal renal function test; Encounter for long-term (current) use of non-steroidal anti-inflammatories; History of malignant neoplasm of skin; History of osteomyelitis; Infliximab (Remicade) long-term use; Long-term current use of high risk medication other than anticoagulant; On statin therapy; Other intermodal dispatcher (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; Personal history of other malignant neoplasm of skin; Cervical disc disorder; Cervical disc disorder, unspecified, unspecified cervical region; Primary osteoarthritis of both knees; Psoriasis; Pustulosis palmaris et plantaris; Asteatosis cutis; 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, care home, current use; Seborrheic eczema; Eczema, unspecified type; 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; Osteoarthritis of both knees, unspecified osteoarthritis type Start: 02-24-2024 End: 02-24-2024 ambulatory [facility] Work Phone: Start: 02-24-2024 End: 02-24-2024 [facility] encounter procedure [facility] Work Phone: Start: 02-21-2024 End: 03-13-2024 ambulatory [facility] Work Phone: Start: 02-21-2024 End: 03-13-2024 Discharged Recurring [facility]-Laboratory Work Phone: Start: 02-21-2024 Registered Recurring [facility] Work Phone: Start: 02-15-2024 End: 02-15-2024 ambulatory [facility] Work Phone: Start: 02-15-2024 End: 02-15-2024 Patient encounter procedure [facility] Specimen Work Phone: Start: 01-13-2024 End: 01-13-2024 ambulatory [facility] Work Phone: Start: 01-13-2024 End: 01-13-2024 Patient encounter procedure [facility] Work Phone: Start: 11-22-2023 End: 11-22-2023 ambulatory [facility] Work Phone: Start: 11-22-2023 End: 11-22-2023 Patient encounter procedure [facility] Work Phone: Start: 11-11-2023 End: 11-11-2023 ambulatory [facility] Work Phone: Start: 11-11-2023 End: 11-11-[address] [facility] Start: 10-26-2023 End: 10-26-2023 Office outpatient visit 25 minutes Coco Shah DO Work Phone: [facility] Rheumatology Comment on above: Psoriatic arthritis mutilans (Primary Dx); Psoriatic arthritis; Primary osteoarthritis of both knees; Cervical disc disorder, unspecified, unspecified cervical region; Cervical disc disorder; Pustulosis palmaris et plantaris; Psoriasis; Seborrheic eczema; Photoaged skin; Other skin changes due to chronic exposure to nonionizing radiation; Eczema, unspecified type; Asteatosis cutis; Actinic keratosis; Personal history of other malignant neoplasm of skin; Other care home (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; On statin therapy; Nocturia; 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, care home, current use; Long-term current use of high risk medication other than anticoagulant; History of osteomyelitis; History of malignant neoplasm of skin; Encounter for long-term (current) use of non-steroidal anti-inflammatories Start: 09-30-2023 End: 09-30-2023 ambulatory [facility] Work Phone: Start: 09-30-2023 End: 09-30-[address] Start: 08-22-2023 End: 08-22-2023 ambulatory [facility] Work Phone: Start: 08-22-2023 End: 08-22-2023 Discharged Recurring [facility]-Laboratory Work Phone: Start: 08-19-2023 End: 08-19-2023 [facility] encounter procedure [facility] Work Phone: Start: 07-08-2023 End: 07-08-2023 ambulatory [facility] Work Phone: Start: 07-08-2023 End: 07-08-2023 Patient encounter procedure [facility] Work Phone: Start: 07-04-2023 End: 07-04-2023 Office outpatient visit 15 minutes Coco Shah DO Work Phone: [facility] Rheumatology Comment on above: Psoriatic arthritis (Primary Dx); Psoriatic arthritis mutilans; Psoriasis; Pustulosis palmaris et plantaris; Abnormal renal function test; Encounter for long-term (current) use of non-steroidal anti-inflammatories; History of malignant neoplasm of skin; History of osteomyelitis; Long-term current use of high risk medication other than anticoagulant; 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, intermodal dispatcher, current use; On statin therapy; Other care home (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; Cervical disc disorder; Cervical disc disorder, unspecified, unspecified cervical region; Primary osteoarthritis of both knees; Infliximab (Remicade) long-term use Start: 06-13-2023 End: 06-13-[address] Zach Turner Work Phone: [facility] Work Phone: Start: 06-13-2023 End: 06-13-[address] Zach Turner Work Phone: [facility]-Nutritional Services Work Phone: Start: 05-27-2023 End: 05-27-[address] Zach Turner Work Phone: [facility] Work Phone: Start: 05-27-2023 End: 05-27-[address] Zcah Turner Work Phone: [facility]-Medical Out Work Phone: Start: 05-23-[address] Zach Turner Work Phone: [facility]-Nutritional Services Work Phone: Start: 05-13-2023 End: 05-13-[address] Zach Turner Work Phone: [facility]-Cardiovascul ar Services Work Phone: Start: 05-10-2023 End: 05-10-[address] Zach Turner Work Phone: [facility] Work Phone: Start: 05-10-2023 End: 05-10-[address] Zach Turner [facility] Work Phone: Start: 05-04-2023 End: 05-04-[address] Zach Turner Work Phone: [facility] Work Phone: Start: 05-04-2023 End: 05-04-[address] Zach Turner Work Phone: [facility] Start: 04-28-2023 ambulatory ZACH Gant [facility] Start: 04-26-2023 End: 04-26-[address] Zach Turner Work Phone: [facility] Work Phone: Start: 04-26-2023 End: 04-26-[address] Zach Turner [facility] Start: 03-29-2023 End: 03-29-[address] Zach Turner Work Phone: [facility]-Laboratory, Specimen Start: 03-25-2023 End: 03-25-[address] Zach Turner Work Phone: [facility] Work Phone: Start: 03-25-2023 End: 03-25-[address] Zach Turner Work Phone: [facility]-Medical Out Start: 03-04-2023 End: 03-04-2023 [facility] Start: 03-03-2023 End: 03-03-2023 [facility] Start: 03-01-2023 Non-patient / Non-visit Dr. Pranay Turner Work Phone: [facility] Start: 02-27-2023 Non-patient / Non-visit Dr. Pranay Turner Work Phone: [facility] Start: 02-26-2023 Non-patient / Non-visit Dr. Pranay Turner Work Phone: [facility] Start: 02-25-2023 End: 02-27-2023 Evaluation and management of inpatient [facility]-Medical Surgical 3 Start: 02-22-2023 End: 02-22-2023 ambulatory [facility] Work Phone: Start: 02-22-2023 End: 02-22-2023 [facility] Spec[facility] Start: 02-11-2023 End: 02-11-2023 ambulatory [facility] Work Phone: Start: 02-11-2023 End: 02-11-2023 Patient encounter procedure [facility] Start: 01-06-2023 End: 01-11-2023 Discharged Recurring [facility]Wound Healing Center Start: 12-31-2022 End: 12-31-2022 Patient encounter procedure [facility] Start: 12-15-2022 Non-patient / Non-visit [facility] Start: 12-01-2022 Non-patient / Non-visit Dr. Pranay Turner Work Phone: [facility] Start: 12-01-2022 End: 12-14-[address] Zach Turner Work Phone: [facility] Work Phone: Start: 12-01-2022 End: 12-14-[address] [facility] Start: 12-01-[address] Zach Turner [facility] Start: 11-25-2022 End: 11-25-[address] Zach Turner Work Phone: [facility] Work Phone: Start: 11-25-2022 End: 11-25-[address] Zach Turner Work Phone: [facility]-Laboratory Start: 11-24-2022 Non-patient / Non-visit Dr. Pranay Turner Work Phone: [facility] Start: 11-19-2022 End: 11-19-[address] Zach Turner Work Phone: [facility] Work Phone: Start: 11-19-2022 End: 11-19-[address] Zach Turner Work Phone: [facility]-Medical Out Start: 11-10-2022 Non-patient / Non-visit Dr. Pranay Turner Work Phone: [facility] Start: 11-10-2022 End: 11-13-[address] Zach Turner Work Phone: [facility] Work Phone: Start: 11-10-2022 End: 11-13-[address] [facility] Phone[facility] Start: 11-03-2022 Non-patient / Non-visit Dr. Pranay Turner Work Phone: [facility] Start: 10-27-2022 Non-patient / Non-visit Dr. Pranay Turner Work Phone: [facility] Start: 10-20-2022 Non-patient / Non-visit Dr. Pranay Turner Work Phone: [facility] Start: 10-13-2022 Non-patient / Non-visit Dr. Pranay Turner Work Phone: [facility] Start: 10-13-2022 End: 10-13-[address] Zach Turner Work Phone: [facility] Work Phone: Start: 10-13-2022 End: 10-13-[address] Zach Turner [facility] Start: 10-08-2022 End: 10-08-[address] Zach Turner Work Phone: [facility] Work Phone: Start: 10-08-2022 End: 10-08-[address] Zach Turner Work Phone: [facility] Start: 10-06-2022 Non-patient / Non-visit Dr. Pranay Turner Work Phone: [facility] Start: 09-29-2022 Non-patient / Non-visit Dr. Pranay Turner Work Phone: [facility] Start: 09-22-2022 Non-patient / Non-visit Dr. Pranay Turner Work Phone: [facility] Start: 09-20-2022 End: 09-20-2022 Office outpatient visit 15 minutes Coco Shah DO Work Phone: [facility] Rheumatology Comment on above: Psoriatic arthritis (Primary Dx); Psoriatic arthritis mutilans; Psoriasis; Pustulosis palmaris et plantaris; Actinic keratosis; Asteatosis cutis; Eczema, unspecified type; Other skin changes due to chronic exposure to nonionizing radiation; Photoaged skin; Seborrheic eczema; Seborrheic keratosis; Vesicular palmoplantar eczema; Encounter for long-term (current) use of non-steroidal anti-inflammatories; History of malignant neoplasm of skin; History of osteomyelitis; Long-term current use of high risk medication other than anticoagulant; On statin therapy; Other care home (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; Cervical disc disorder; Cervical disc disorder, unspecified, unspecified cervical region; Primary osteoarthritis of both knees Start: 09-08-2022 Non-patient / Non-visit Dr. Pranay Turner Work Phone: [facility] Start: 09-08-2022 End: 09-13-[address] Zach Turner [facility] Start: 09-02-2022 End: 09-02-[address] Zach Turner Work Phone: [facility] Start: 08-27-2022 End: 08-27-2022 ambulatory [facility] Work Phone: Start: 08-27-2022 End: 08-27-2022 [facility] encounter procedure [facility] Start: 08-25-2022 Non-patient / Non-visit [facility] Start: 08-25-2022 [facility] Start: 08-23-2022 End: 09-13-[address] Zach Turner Work Phone: [facility] Work Phone: Start: 08-23-2022 End: 09-13-[address] Zach Turner Work Phone: [facility]-Laboratory Start: 08-23-2022 Registered Recurring [facility]Labor[facility] Start: 08-18-2022 Non-patient / Non-visit [facility] Start: 08-11-2022 Non-patient / Non-visit [facility] Start: 08-11-2022 End: 08-13-2022 ambulatory [facility] Work Phone: Start: 08-11-2022 End: 08-13-2022 Discharged Recurring [facility] Start: 08-04-2022 Non-patient / Non-visit [facility] Start: 07-28-2022 Non-patient / Non-visit [facility] Start: 07-21-2022 Non-patient / Non-visit [facility] Start: 07-21-2022 Registered Recur[facility] Start: 07-16-2022 End: 07-16-2022 ambulatory [facility] Work Phone: Start: 07-16-2022 End: 07-16-2022 [facility] encounter procedure [facility] Start: 07-14-2022 Non-patient / Non-visit [facility] Start: 07-14-2022 End: 07-14-2022 ambulatory [facility] Work Phone: Start: 07-14-2022 End: 07-14-2022 Discharged Recurring [facility] Start: 07-14-2022 [facility]istered [facility]ur[facility] Start: 07-07-2022 Non-patient / Non-visit [facility] Start: 06-30-2022 Non-patient / Non-visit [facility] Start: 2022 Non-patient / Non-visit [facility] Start: 06-21-2022 End: 06-21-2022 ambulatory [facility] Work Phone: Start: 06-21-2022 End: 06-21-2022 Discharged Recurring [facility]-Laboratory Start: 06-16-2022 Non-patient / Non-visit [facility] Start: 06-16-2022 Registered Recur[facility] Start: 06-11-2022 End: 06-11-2022 [facility] encounter [facility] Start: 06-09-2022 Non-patient / Non-visit [facility] Start: 06-09-2022 End: 06-13-2022 Discharged Recurring [facility] Start: 06-09-2022 Registered Recur[facility] Start: 06-04-2022 End: 06-04-2022 Patient encounter procedure [facility] Start: 06-02-2022 Non-patient / [facility]-visit [facility] Start: 05-26-2022 Non-patient / Non-visit [facility] Start: 05-19-2022 End: 05-19-2022 Office outpatient visit 25 minutes Coco Shah DO Work Phone: [facility] Rheumatology Comment on above: Psoriatic arthritis (Primary Dx); Psoriatic arthritis mutilans; Unspecified open wound, unspecified foot, initial encounter; Psoriasis; Pustulosis palmaris et plantaris; Asteatosis cutis; Photoaged skin; CRP elevated; History of malignant neoplasm of skin; History of osteomyelitis; [facility] (current) use of antibiotics; Long-term current use of high risk medication other than anticoagulant; 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, care home, current use; On statin therapy; Other intermodal dispatcher (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; Personal history of other malignant neoplasm of skin; Cervical disc disorder; Cervical disc disorder, unspecified, unspecified cervical region; Primary osteoarthritis of both knees; Seborrheic eczema; Eczema, unspecified type; Encounter for long-term (current) use of non-steroidal anti-inflammatories; 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; Osteoarthritis of both knees, unspecified osteoarthritis type Start: 05-19-2022 Non-patient / Non-visit [facility] Start: 05-12-2022 Non-patient / Non-visit Dr. Pranay Turner Work Phone: [facility] Start: 05-12-2022 End: 05-13-[address] Zach Turner [facility] Start: 05-05-2022 Non-patient / Non-visit Dr. Pranay Turner Work Phone: [facility] Start: 04-28-2022 Non-patient / Non-visit Dr. Parnay Turner Work Phone: [facility] Start: 04-21-2022 End: 04-21-2022 [facility]charged Rec[facility]ring [facility] Start: 04-21-[address] Zach Turner [facility] Start: 04-21-2022 Non-patient / Non-visit Dr. Pranay Turner Work Phone: [facility] Start: 04-09-2022 End: 04-09-[address] Zach Turner [facility] Start: 02-22-2022 End: 02-22-2022 Emergency department patient visit Dr. Zach Turner Work Phone: [facility]-Emergency Department Start: 02-12-2022 End: 02-12-[address] Zach Turner [facility] Start: 02-05-2022 End: 02-05-[address] Zach Turner Work Phone: [facility]-Laboratory Start: 02-03-2022 End: 02-03-[address] Zach Turner Work Phone: [facility] Start: 12-15-2021 End: 12-15-[address] Zach Turner [facility] Start: 12-04-2021 End: 12-14-[address] Zach Turner Work Phone: [facility]-Laboratory Start: 11-16-2021 End: 11-16-[address] Zach Turner Work Phone: [facility]-Laboratory, Specimen Start: 10-20-[address] Keerthi Turner Work Phone: [facility]-Medical Out Start: 03-23-2021 End: 03-23-2021 Office outpatient visit 25 minutes Coco Shah DO Work Phone: [facility] Rheumatology Comment on above: Psoriatic arthritis mutilans (Primary Dx); Pustulosis palmaris et plantaris; Psoriasis; Psoriatic arthritis; Other intermodal dispatcher (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; History of malignant neoplasm of skin; Long-term current use of high risk medication other than anticoagulant; Personal history of other malignant neoplasm of skin; Encounter for long-term (current) use of non-steroidal anti-inflammatories; 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, care home, current use; [facility] (current) use of antibiotics; Osteoarthritis of both knees, unspecified osteoarthritis type; Cervical disc disorder, unspecified, unspecified cervical region; Primary osteoarthritis of both knees; Cervical disc disorder Start: 09-22-2020 End: 09-22-2020 Office outpatient visit 25 minutes oCco Shah Work Phone: [facility] Rheumatology Comment on above: Psoriatic arthritis mutilans (Primary Dx); Psoriatic arthritis; Psoriasis; Eczema, unspecified type; Personal history of other malignant neoplasm of skin; Other care home (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; 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, intermodal dispatcher, current use; Long-term current use of high risk medication other than anticoagulant; History of malignant neoplasm of skin; Encounter for long-term (current) use of non-steroidal anti-inflammatories; Primary osteoarthritis of both knees; Osteoarthritis of both knees, unspecified osteoarthritis type; Cervical disc disorder, unspecified, unspecified cervical region; Cervical disc disorder; Pustulosis palmaris et plantaris Start: 05-14-2020 End: 05-14-2020 Office outpatient visit 25 minutes Coco Shah Work Phone: [facility] [employer] Rheumatology Comment on above: Psoriatic arthritis (Primary Dx); Psoriatic arthritis mutilans; Pustulosis palmaris et plantaris; Long-term current use of high risk medication other than anticoagulant; 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, care home, current use; Other care home (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; Cervical disc disorder; Cervical disc disorder, unspecified, unspecified cervical region; Osteoarthritis of both knees, unspecified osteoarthritis type; Primary osteoarthritis of both knees; Psoriasis; [facility] 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; Encounter for long-term (current) use of non-steroidal anti-inflammatories; Asteatosis cutis; Seborrheic eczema; Eczema, unspecified type Start: 10-08-2019 End: 10-08-2019 Office outpatient visit 25 minutes Coco Shah Work Phone: [facility] Rheumatology Comment on above: Psoriatic arthritis (Primary Dx); Psoriatic arthritis mutilans; Pustulosis palmaris et plantaris; Asteatosis cutis; Seborrheic eczema; Long-term current use of high risk medication other than anticoagulant; 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, intermodal dispatcher, current use; Other intermodal dispatcher (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; Eczema, unspecified type; Cervical disc disorder; Cervical disc disorder, unspecified, unspecified cervical region; Osteoarthritis of both knees, unspecified osteoarthritis type; Primary osteoarthritis of both knees; Psoriasis; 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; Encounter for long-term (current) use of non-steroidal anti-inflammatories Start: 06-21-2019 End: 06-21-2019 Refill Coco Shah Work Phone: [facility] Rheumat[facility] Start: 01-24-2019 End: 01-24-2019 Telephone encounter Yasmin Wlal [facility] Rheumatology Comment on above: Results Start: 01-23-2019 End: 01-23-2019 Patient encounter procedure Other Other [facility] Start: 01-22-2019 End: 01-22-2019 Patient encounter procedure Coco Shah Work Phone: [facility]umat[facility] Start: 01-22-2019 End: 01-22-2019 Office outpatient visit 25 minutes Coco Shah Work Phone: [facility] Rheumatology Comment on above: Psoriatic arthritis (Primary Dx); Psoriatic arthritis mutilans; Pustulosis palmaris et plantaris; Seborrheic eczema; Seborrheic keratosis; Vesicular palmoplantar eczema; Encounter for long-term (current) use of non-steroidal anti-inflammatories; Long-term current use of high risk medication other than anticoagulant; 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, intermodal dispatcher, current use; Other intermodal dispatcher (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; Claudication; Osteoarthritis of both knees, unspecified osteoarthritis type; Primary osteoarthritis of both knees; Eczema, unspecified type; Psoriasis Start: 11-18-2018 End: 11-18-2018 Sonja Christian Randall Work Phone: Division of Dermatology Procedures Date Procedure Procedure Detail Performing Clinician Start: 06-21-[address] Zach Turner MD Work Phone: Start: 06-21-2025 Urnls dip stick/tabl et reagent auto microscopy Dr. Zach Turner MD Work Phone: Start: 06-21-2025 Computed tomography of abdomen and pelvis with intravenous contrast Dr. Zach Turner MD Work Phone: Start: 06-21-2025 Measurement of occul t blood in stool specimen using immunoassay Dr. Zach Turner MD Work Phone: Start: 05-24-2025 Assay of prostate sp ecific antigen total Dr. Zach Turner MD Work Phone: Comment on above: This test was perfor med using the [employer] tPSA method. Measured values of a patient sample can vary depending on the testing procedure used. PSA values determined on patient samples by different testing procedures cannot be used interchangeably. If there is a change in PSA assays while monitoring therapy, sequential testing should be performed to confirm baseline values. Start: 04-17-[address] Zach Turner MD Work Phone: Start: 04-16-2025 Serum inorganic phos phate measurement Dr. Zach Turner MD Work Phone: Start: 04-15-2025 MRI of lower limb wi th contrast Dr. Zach Turner MD Work Phone: Start: 04-15-2025 X-ray of foot, three or more views Dr. Zach Turner MD Work Phone: Start: 04-15-[address] Zach Turner MD Work Phone: Start: 04-15-[address] Zach Turner MD Work Phone: Start: 04-15-2025 End: 04-15-2025 B[address] nucleic acid assay Dr[address] Zach Turner MD Work Phone: Start: 04-15-[address] Zach Turner MD Work Phone: Start: 04-15-2025 Gram stain microscopy D sheri Turner MD Work Phone: Start: 04-15-2025 End: 04-15-2025 Microbial culture, routine Dr. Zach carroll MD Work Phone: Start: 03-27-2025 X-ray of foot, three or more views Dr. Zcah Turner MD Work Phone: Start: 03-08-2025 Evaluation of diagno stic study results Dr. Zach Turner MD Work Phone: Start: 07-11-2024 SKIN BIOPSY Georgina bynum MD Work Phone: Start: 07-11-2024 Level iv surg pathol ogy gross&microscopic exam Georgina Moore MD Work Phone: Start: 02-15-2024 Investigation of transfusion reaction Start: 02-15-2024 Microbial culture, routine Start: 05-10-2023 Investigation of transfusion reaction Dr. Zach Turner Work Phone: Start: 05-10-2023 Microbial culture, routine Dr. Zach Turner Work Phone: Start: 03-29-2023 Investigation of transfusion reaction Dr. Zach Turner Work Phone: Start: 03-29-2023 Microbial culture, routine Dr. Zach Turner Work Phone: Start: 02-25-2023 X-ray of both feet Start: 02-22-2023 Investigation of transfusion reaction Dr. Zach Turner Work Phone: Start: 02-22-2023 Microbial culture, routine Dr. Zach Turner Work Phone: Start: 12-23-2022 X-ray of both feet Start: 09-29-2022 X-ray of both feet Dr. Zach Turner Work Phone: Start: 09-29-2022 Plain X-ray of toe Dr. Zach Turner Work Phone: Start: 06-11-2022 CT of face Start: 06-09-2022 X-ray of both feet Start: 04-21-2022 X-ray of both feet Dr. Zach Turner Work Phone: Start: 02-22-2022 X-ray of both feet Dr. Zach Turner Work Phone: Start: 12-02-2018 LABS (OUTSIDE) Coco Shah Work Phone: Start: 10-03-2017 End: 10-11-2017 [facility]-mode compl spec&colr d Tomasa Russell CNP Work Phone: Start: 10-03-2017 End: 10-03-2017 Follow Up Appt 6 months Merrill Coppola NP Work Phone: Start: 10-03-2017 End: 10-03-2017 PFM Merrill Coppola DENTISTRY TEACHER Work Phone: Start: 05-09-2017 End: 10-11-2017 BWA Tomasa Christian DENTISTRY TEACHER Work Phone: Start: 05-09-2017 End: 10-11-2017 Follow Up Appt 6 months Tomasa guzman PALLIATIVE MEDICINE PHYSICIAN Work Phone: Start: 11-29-2016 End: 11-29-2016 Follow [...] Start: 09-22-2015 End: 09-22-2015 Smoking cessation education lAyx vazquez MD Start: 08-25-2015 End: 08-25-2015 *CBC [...] PA-C Work Phone: Start: 06-11-2013 End: 01-14-2014 PFM Winnie Aguirre PA-C Work Phone: Start: 11-24-2012 [...] - Serum or Plasma Miguelangel Walton MD Anaerobic microbial culture Anaerobic microbial culture Dr. Zach Turner Work Phone: Anaerobic microbial culture Dr. Zach Turner Work Phone: Investigation of transfusion reaction Dr. Zach Turner Work Phone: Investigation of transfusion reaction Dr. Zach Turner Work Phone: Investigation of transfusion reaction Dr. Zach Turner Work Phone: Investigation of transfusion reaction Investigation of transfusion reaction Dr. Zach Turner Work Phone: Microbial culture, routine Microbial culture, routine D sheri Turner Work Phone: Microbial culture, routine D sheri Turner Work Phone: Microbial culture, routine Microbial culture, routine D sheri Turner Work Phone: Plan of Treatment Date Care Activity Detail Author Start: 05-22-2026 Diabetes: Urine Albumin-Creatinine Ratio for Kidney Health Diabetes: Urine Albumin-Creatinine Ratio for Kidney Health [facility] Start: 11-28-2025 End: 11-28-2025 Patient encounter procedure 11/28/2025 11:30 AM EST Office Visit [facility] Nephrology 2 [address] [place] [address] Christina Cartagena MD [address] [place] [id number] [facility]phrology 2 Start: 08-16-2025 End: 08-16-2025 Patient encounter procedure 08/16/2025 1:30 PM EDT Office Visit [facility] - [place] [address] [facility] [address] [place] [address] Georgina Moore MD [address] [facility] [place], [place] [id number] [facility] [place] Start: 08-05-2025 End: 08-05-2025 Patient encounter procedure 08/05/2025 12:00 PM EDT Office Visit [facility] Rheumatology [address] [place] [address] Pablo Wilson, Coco Carter, [address] [address] [facility] Start: 07-15-2025 Influenza vaccination INFLUENZA VACCINE (#1) [facility] Start: 06-21-2025 [facility] Start: 06-07-2025 Chemotherapy admn iv infusion tq ea hr CHEMO IV INFUSION ADDL HR [facility] Start: 06-07-2025 Chemotx admn iv nfs tq up 1 hr 11/14 sbst/drug CHEMO IV INFUSION 1 HR [facility] Start: 05-30-2025 End: 05-30-2026 Complete blood count with white cell differential, automated CBC, EDIF, PLATELET Lab Routine Stage 3b chronic kidney disease Expected: 05/30/2025, Expires: 05/30/2026 [facility] Comment on above: Expected: 05/30/2025, Expires: Start: 05-30-2025 End: 05-30-2026 DANELLE AND PE, SERUM DANELLE AND PE, SERUM Lab Routine Stage 3b chronic kidney disease Expected: 05/30/2025, Expires: 05/30/2026 [facility] Comment on above: Expected: 05/30/2025, Expires: Start: 05-30-2025 End: 05-30-2026 IMMUNOGLOBULIN FREE CHAINS IMMUNOGLOBULIN FREE CHAINS Lab Routine Stage 3b chronic kidney disease Expected: 05/30/2025, Expires: 05/30/2026 [facility] Comment on above: Expected: 05/30/2025, Expires: Start: 05-30-2025 End: 05-30-2026 Magnesium [Mass/volume] in Serum or Plasma MAGNESIUM Lab Routine Stage 3b chronic kidney disease Expected: 05/30/2025, Expires: 05/30/2026 [facility] Comment on above: Expected: 05/30/2025, Expires: Start: 05-30-2025 End: 05-30-2026 MICROALBUMIN/CREATININE RATIO MICROALBUMIN/CREATININE RATIO Fluids Routine Stage 3b chronic kidney disease Expected: 05/30/2025, Expires: 05/30/2026 [facility] Comment on above: Expected: 05/30/2025, Expires: Start: 05-30-2025 End: 05-30-2026 RENAL FUNCTION PANEL RENAL FUNCTION PANEL Lab Routine Stage 3b chronic kidney disease Expected: 05/30/2025, Expires: 05/30/2026 [facility] Comment on above: Expected: 05/30/2025, Expires: Start: 05-30-2025 End: 05-30-2026 Sodium [Moles/volume] in Urine SODIUM, RANDOM URINE Fluids Routine Stage 3b chronic kidney disease Expected: 05/30/2025, Expires: 05/30/2026 [facility] Comment on above: Expected: 05/30/2025, Expires: Start: 05-30-2025 End: 05-30-2026 Urinalysis, reagent strip without microscopy URINALYSIS, MACRO Fluids Routine Stage 3b chronic kidney disease Expected: 05/30/2025, Expires: 05/30/2026 [facility] Comment on above: Expected: 05/30/2025, Expires: Start: 05-30-2025 End: 05-30-2026 URINE PROTEIN/CREA RATIO, RANDOM URINE PROTEIN/CREA RATIO, RANDOM Fluids Routine Stage 3b chronic kidney disease Expected: 05/30/2025, Expires: 05/30/2026 [facility] Comment on above: Expected: 05/30/2025, Expires: Start: 05-30-2025 End: 05-30-2025 Patient encounter procedure 05/30/2025 11:30 AM EDT Office Visit [facility] Nephrology 2 [address] [place] [address] Christina Cartagena MD [address] [place] [address] [facility] 2 Start: 04-17-2025 Patient discharge [facility] Start: 04-17-2025 Referral to occupational therapist [facility] Start: 04-17-2025 Referral to service [facility] Start: 04-16-2025 [facility] Start: 04-15-2025 Source specific culture [facility] Start: 04-15-2025 [facility] Start: 04-15-2025 Ambulation without limitation [facility] Start: 04-15-2025 Assessment of risk of venous thromboembolism [facility] Start: 04-15-2025 Care regimes management [facility] Start: 04-15-2025 Consultation [facility] Start: 04-15-2025 Consultation for treatment [facility] Start: 04-15-2025 Elevation of affected extremity [facility] Start: 04-15-2025 Incentive spirometry [facility] Start: 04-15-2025 Inhalation therapy procedure [facility] Start: 04-15-2025 Insertion of catheter into peripheral vein [facility] Start: 04-15-2025 Measuring intake and output [facility] Start: 04-15-2025 Notification of physician [facility] Start: 04-15-2025 Oxygen therapy [facility] Start: 04-15-2025 Providing care according to standard [facility] Start: 04-15-2025 Referral to merit system director [facility] Start: 04-15-2025 Wound care [facility] Start: 04-15-2025 End: 04-15-2025 [facility] Start: 04-15-2025 Following clinical pathway protocol [facility] Start: 04-15-2025 MR Lower extremity [facility] Start: 04-15-2025 MRI of lower limb with contrast Lower Ext No Joint W/WO Cont [facility] Start: 04-15-2025 Bacterial nucleic acid assay [facility] Start: 04-15-2025 Verification routine [facility] Start: 04-15-2025 Hospital admission, emergency, from emergency room, medical nature [facility] Start: 04-15-2025 Admission procedure [facility] Start: 04-15-2025 [facility] Start: 04-15-2025 Anaerobic microbial culture Anaerobic Culture [facility] Start: 04-15-2025 Bacteria identified in Blood by Culture Blood Culture [facility] Start: 04-15-2025 Microbial culture, routine Wound Culture [facility] Start: 04-15-2025 Skin and Soft Tissue MRSA/MSSA (PCR Skin and Soft Tissue MRSA/MSSA (PCR [facility] Start: 04-15-2025 Patient referral to dietitian [facility] Start: 02-28-2025 End: 02-28-2026 US Kidney US RENAL RETROPERITONEAL Imaging Routine Stage 3b chronic kidney disease Expected: 02/28/2025, Expires: 02/28/2026 [facility] Comment on above: Expected: 02/28/2025, Expires: Start: 02-21-2025 Chemotherapy admn iv infusion tq ea hr CHEMO IV INFUSION ADDL HR [facility] Start: 02-21-2025 Chemotx admn iv nfs tq up 1 hr 11/14 sbst/drug CHEMO IV INFUSION 1 HR [facility] Start: 02-21-2025 Therapeutic injection iv push each new drug TX/PRO/DX INJ NEW DRUG ADDON [facility] Start: 02-13-2025 End: 02-13-2025 Patient encounter procedure 02/13/2025 11:30 AM EDT Office Visit [facility] [address] [facility] [address] [place] [phone] Georgina Moore MD [address] [facility] [place], [place] [address] [facility] Start: 02-12-2025 End: 01-25-2026 DRUG SCREEN MED COMPLIANCE I DRUG SCREEN MED COMPLIANCE I Lab Routine Psoriatic arthritis Primary osteoarthritis of both knees Cervical disc disorder, unspecified, unspecified cervical region Cervical disc disorder Macrocytic anemia Hyperchromic anemia Vesicular palmoplantar eczema Senile lentigo Seborrheic keratosis Seborrheic eczema Pustulosis palmaris et plantaris Psoriasis Photoaged skin Other skin changes due to chronic exposure to nonionizing radiation Eczema, unspecified type Asteatosis cutis Actinic keratosis Other proteinuria Other care home (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 On statin therapy 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, care home, current use Nocturia Long-term current use of high risk medication other than anticoagulant [facility] use of drug Infliximab (Remicade) long-term use History of osteomyelitis History of malignant neoplasm of skin Difficulty in urination Current use of care home anticoagulation Abnormal renal function test Psoriatic arthritis mutilans Expected: 02/12/2025 (Approximate), Expires: 01/25/2026 [facility] Comment on above: Expected: 02/12/2025 (Approximate), Expi res: 01/25/2026 Start: 12-30-2024 DTaP/Tdap/Td Vaccines (2 - Td or Tdap) DTaP/Tdap/Td Vaccines (2 - Td or Tdap) [facility] Start: 12-30-[address] [facility] Start: 12-25-2024 Chemotherapy admn iv infusion tq ea hr CHEMO IV INFUSION ADDL HR [facility] Start: 12-25-2024 Chemotx admn iv nfs tq up 1 hr 11/14 sbst/drug CHEMO IV INFUSION 1 HR [facility] Start: 11-19-2024 End: 11-19-2024 Patient encounter procedure 11/19/2024 1:00 PM EST Office Visit [facility] Rheumatology [address] [place] [address] Coco Shah Jr., DO [address] [place] [address] [facility] Start: 11-09-2024 Therapeutic injection iv push each new drug TX/PRO/DX INJ NEW DRUG ADDON [facility] Start: 10-31-2024 End: 10-31-2024 Patient encounter procedure [facility] Start: 08-28-2024 End: 08-28-2025 Decision Dx SCC - Misc Path Test [facility] Work Phone: Comment on above: Expected: 08/28/2024 (Approximate), Expi res: 08/28/2025 Start: 07-15-2024 COVID-19 Vaccine ( season) COVID-19 Vaccine ( season) [facility] Start: 07-15-2024 COVID-19 Vaccine ( season) COVID-19 Vaccine ( season) [facility] Start: 07-15-2024 Influenza vaccination Influenza Vaccine (#1) [facility] Start: 05-07-2024 End: 05-07-2024 Patient encounter procedure 05/07/2024 12:00 PM EDT Office Visit [facility] Rheumatology [address] [place] [address] Coco Shah Jr., [address] [place] [address] [facility] Start: 01-13-2024 Chemotherapy admn iv infusion tq ea hr CHEMO IV INFUSION [facility] Start: 01-13-2024 Chemotx admn iv nfs tq up 1 hr 1/1st sbst/drug CHEMO IV INFUSION 1 HR [facility] Start: 01-13-2024 Therapeutic injection iv push each new drug TX/PRO/DX INJ NEW DRUG [facility] Start: 11-11-2023 Chemotherapy admn iv infusion tq ea hr CHEMO IV INFUSION [facility] Start: 11-11-2023 Chemotx admn iv nfs tq up 1 hr 1/1st sbst/drug CHEMO IV INFUSION 1 HR [facility] Start: 11-11-2023 Therapeutic injection iv push each new drug TX/PRO/DX INJ NEW DRUG [facility] Start: 10-26-2023 End: 10-26-2023 Patient encounter procedure 10/26/2023 2:30 PM EST Office Visit [facility] Rheumatology [address] [place] [phone] Pablo Wilson, Coco Carter, DO [address] [place] [phone] [facility] Start: 09-30-2023 Chemotherapy admn iv infusion tq ea hr CHEMO IV INFUSION [facility] Start: 09-30-2023 Chemotx admn iv nfs tq up 1 hr 1/1st sbst/drug CHEMO IV INFUSION 1 HR [facility] Start: 09-30-2023 Therapeutic injection iv push each new drug TX/PRO/DX INJ NEW DRUG [facility] Start: 08-19-2023 Iv infusion therapy prophylaxis/dx ea hour THER/PROPH/DIAG IV INF [facility] Start: 08-19-2023 Iv infusion therapy/prophylaxis /dx 1st to 1 [facility] Start: 07-15-2023 COVID-19 VACCINE () COVID-19 VACCINE () [facility] Start: 07-15-2023 Influenza vaccination INFLUENZA VACCINE (#1[facility] Start: 07-08-2023 Chemotherapy admn [facility]q ea [facility] Start: 07-08-2023 Chemotx admn iv nfs tq up 1 hr 1/1st sbst/drug CHEMO IV INFUSION 1 HR [facility] Start: 07-08-2023 Therapeutic injection iv push each new drug TX/PRO/DX INJ NEW DRUG [facility] Start: 05-27-2023 Chemotherapy admn iv infusion [facility]q ea [facility] Start: 05-27-2023 Chemotx admn iv nfs tq up 1 hr 1/1st sbst/drug CHEMO IV INFUSION 1 HR [facility] Start: 05-27-2023 Therapeutic injection iv push each new drug TX/PRO/DX INJ NEW DRUG [facility] Start: 03-28-2023 End: 03-28-2023 Patient encounter procedure 03/28/2023 [facility] Coco [facility], [address] [place] [address] [facility] Start: 03-25-2023 Chemotherapy admn iv infusion tq ea hr CHEMO IV INFUSION [facility] Start: 03-25-2023 Chemotx admn iv nfs tq up 1 hr 1/1st sbst/drug CHEMO IV INFUSION 1 HR [facility] Start: 03-25-2023 Therapeutic injection iv push each new drug TX/PRO/DX INJ NEW DRUG [facility] Start: 03-01-2023 Colonoscopy COLORECTAL CANCER SCREENING DISCUSSION [facility] Start: 03-01-2023 Screening for malignant neoplasm of colon COLORECTAL CANCER SCREENING DISCUSSION [facility] Start: 02-27-2023 Patient discharge [facility] Start: 02-26-2023 Care planning and problem solving actions [facility] Start: 02-25-2023 Referral to merit system director [facility] Start: 02-25-2023 Care planning and problem solving actions [facility] Start: 02-25-2023 Assessment of risk of venous thromboembolism [facility] Start: 02-25-2023 Catheterization of vein [facility] Start: 02-25-2023 Insertion of catheter into peripheral vein [facility] Start: 02-25-2023 Providing care according to standard [facility] Start: 02-25-2023 Referral to occupational therapist [facility] Start: 02-25-2023 Referral to service [facility] Start: 02-25-2023 [facility] Start: 02-25-2023 Following clinical pathway protocol [facility] Start: 02-25-2023 Admission procedure [facility] Start: 02-25-2023 [facility] Start: 02-25-2023 Patient referral to dietitian [facility] Start: 10-08-2022 Therapeutic injection iv push each new drug TX/PRO/DX INJ NEW DRUG [facility] Start: 09-20-2022 End: 09-20-2022 Patient encounter procedure 09/20/2022 Office Visit Rheumatology Pablo Wilson, Coco Carter, DO [address] [place] [address] [facility] Start: 07-16-2022 Chemotherapy admn iv infusion tq ea hr CHEMO IV INFUSION ADDL HR [facility] Work Phone: Start: 07-15-2022 Influenza vaccination INFLUENZA VACCINE (#1) [facility] Start: 07-07-2022 [facility] Work Phone: Start: 06-09-2022 X-ray of both feet Foot min 3 Views [facility] Work Phone: Start: 06-09-2022 XR Foot GE 3 Views [facility] Work Phone: Start: 06-09-2022 [facility] Work Phone: Start: 06-04-2022 Chemotherapy admn iv infusion tq ea hr CHEMO IV INFUSION ADDL HR [facility] Work Phone: Start: 05-12-2022 [facility] Work Phone: Start: 04-09-2022 Iv infusion therapy prophylaxis/dx ea hour THER/PROPH/DIAG IV INF [facility] Work Phone: Start: 04-09-2022 Iv infusion therapy/prophylaxis /dx 1st to 1 hr THER/PROPH/DIAG IV INF [facility] Work Phone: Start: 02-12-2022 Iv infusion therapy prophylaxis/dx ea hour THER/PROPH/DIAG IV INF [facility] Work Phone: Start: 02-12-2022 Iv infusion therapy/prophylaxis /dx 1st to 1 hr THER/PROPH/DIAG IV INF [facility] Work Phone: Start: 02-12-2022 Therapeutic injection iv push each new drug TX/PRO/DX INJ NEW DRUG [facility] Work Phone: Start: 01-23-2022 COVID-19 VACCINE (4 - Booster for Pfizer series) COVID-19 VACCINE (4 - Booster for Pfizer series) [facility] Start: 12-15-2021 Chemotherapy admn iv infusion tq ea hr CHEMO IV INFUSION ADDL HR [facility] Work Phone: Start: 12-15-2021 Chemotx admn iv nfs tq up 1 hr 1/ sbst/drug CHEMO IV INFUSION 1 HR [facility] Work Phone: Start: 11-20-2021 COVID-19 VACCINE (4 - Booster for Pfizer series) COVID-19 VACCINE (4 - Booster for Pfizer series) [facility] Start: 11-20-2021 COVID-19 VACCINE (4 - Pfizer series) COVID-19 VACCINE (4 - Pfizer series) [facility] Start: 07-27-2021 End: 07-27-2021 Patient encounter procedure 07/27/2021 Office Visit Rheumatology Pablo Wilson, Coco Carter, [address] [place] [address] [facility] Start: 07-15-2021 Influenza vaccination INFLUENZA VACCINE (Season Ended) [facility] Start: 03-23-2021 End: 03-23-2021 Office Visit 03/23/2021 Office Visit Rheumatology Coco Shah Jr., DO [address] [facility] [place] [phone] [facility] Start: 09-22-2020 End: 09-22-2020 Office Visit 09/22/2020 Office Visit Rheumatology Coco Shah Jr., DO [address] [facility] [place] [phone] [facility] Start: 07-15-2020 Influenza vaccination INFLUENZA VACCINE (#1) [facility] Start: 02-20-2020 End: 02-20-2020 Office Visit 02/20/2020 Office Visit Rheumatology Coco Shah Jr., DO [address] [place] [address] [phone] [facility] Start: 09-25-2019 Potassium molar conc POTASSIUM [facility] Work Phone: Start: 07-23-2019 End: 07-23-2019 Office Visit [facility] Start: 07-15-2019 Influenza vaccination INFLUENZA VACCINE (#1) [facility] Start: 01-22-2019 End: 01-22-2019 Ambulatory 01/22/2019 Office Visit Rheumatology Coco Shah Jr., DO [address] [facility] [place] [place] [address] [phone] [facility] Start: 07-15-2018 Influenza vaccination INFLUENZA VACCINE (#1) [facility] Work Phone: Start: 07-03-2018 End: 07-03-2018 Appointment Appointment [facility] Work Phone: Start: 2018 RSV Immunization for Adults (1 - 1-dose 75+ series) RSV Immunization for Adults (1 - 1-dose 75+ series) [facility] Start: 2018 RSV VACCINE (1 - 1-dose 75+ series) RSV VACCINE (1 - 1-dose 75+ series) [facility] Start: 11-02-2017 End: 11-02-2017 Appointment Appointment [facility] Work Phone: Start: 10-03-2017 End: 10-11-2017 Echo tthrc r-t 2d w/wom-mode compl spec&colr d Echo Complete with Color Flow [facility] Work Phone: Start: 10-03-2017 End: 10-03-2017 Follow Up Appt 6 months Follow Up Appt 6 months [facility] Work Phone: Start: 10-03-2017 End: 10-03-2017 PFM PFM [facility] Work Phone: Start: 05-09-2017 End: 10-11-2017 BWA BWA [facility] Work Phone: Start: 05-09-2017 End: 10-11-2017 Follow Up Appt 6 months Follow Up Appt 6 months [facility] Work Phone: Start: 11-29-2016 End: 11-29-2016 Follow Up Appt 6 months Follow Up Appt 6 months [facility] Work Phone: Start: 11-29-2016 End: 11-29-2016 PFM PFM [facility] Work Phone: Start: 11-16-2016 End: 11-16-2016 CSM CSM [facility] Work Phone: Start: 11-16-2016 End: 11-16-2016 Follow Up Appt 6 months Follow Up Appt 6 months [facility] Work Phone: Start: 11-16-2016 End: 11-16-2016 Pulmonary Function Test - complete Pulmonary Function Test - complete [facility] Work Phone: Start: 11-16-2016 End: 11-16-2016 Pulmonary stress test/simple Pulmonary stress testing; simple (eg, 6-minute walk) [facility] Work Phone: Start: 05-31-2016 End: 05-31-2016 Follow Up Appt 6 months Follow Up Appt 6 months [facility] Work Phone: Start: 05-31-2016 End: 05-31-2016 MMM MMM [facility] Work Phone: Start: 05-20-2016 End: 11-21-2015 *Hepatic Function Panel *Hepatic Function Panel [employer] [facility] Work Phone: Start: 05-20-2016 End: 11-21-2015 Lipid panel [AGGREGATE] *Lipid Profile CC PCP [facility] Work Phone: Start: 05-19-2016 End: 05-19-2016 Follow Up Appt 6 months Follow Up Appt 6 months [employer] Work Phone: Start: 04-19-2016 End: 04-19-2016 Debridement subcutaneous tissue 20 sq cm/< Debridement, subcutaneous tissue first 20 sq cm or less [facility] Work Phone: Start: 04-09-2016 End: 04-09-2016 Radex foot complete minimum 3 views X-Ray, Foot [facility] Work Phone: Start: 04-06-2016 End: 04-06-2016 *MRSAW, Staph A, DNA, Amp Probe, Wound *MRSAW, Staph A, DNA, Amp Probe, Wound [facility] Work Phone: Start: 01-23-2016 End: 01-24-2016 Erythrocyte sedimentation rate *Sedimentation Rate (ESR) [facility] Work Phone: Start: 01-23-2016 End: 01-24-2016 Hemoglobin A1c/Hemoglobin.total mass fraction (Bld) *HgA1C [facility] Work Phone: Start: 01-23-2016 End: 04-06-2016 Radex foot complete minimum 3 views X-Ray, Foot [facility] Work Phone: Start: 11-17-2015 End: 11-20-2015 *Hepatic Function Panel *Hepatic Function Panel [employer] Work Phone: Start: 11-17-2015 End: 11-17-2015 Ecg routine ecg w/least 12 lds w/i&r EKG (In office) [facility] Work Phone: Start: 11-17-2015 End: 11-17-2015 Follow Up Appt 6 months Follow Up Appt 6 months [employer] Work Phone: Start: 11-17-2015 End: 11-20-2015 Lipid panel [AGGREGATE] *Lipid Profile CC PCP [facility] Work Phone: Start: 11-17-2015 End: 11-17-2015 PFM PFM [facility] Work Phone: Start: 11-12-2015 End: 11-12-2015 Follow Up Appt 6 months Follow Up Appt 6 months [employer] Work Phone: Start: 09-22-2015 End: 10-17-2015 Erythrocyte sedimentation rate *Sedimentation Rate (ESR) [facility] Work Phone: Start: 09-22-2015 End: 10-17-2015 Radex foot complete minimum 3 views X-Ray, Foot [facility] Work Phone: Start: 08-25-2015 End: 08-25-2015 *CBC with Differential *CBC with Differential [facility] Work Phone: Start: 08-25-2015 End: 08-25-2015 *Renal Panel *Renal Panel [facility] Work Phone: Start: 08-25-2015 End: 08-25-2015 Erythrocyte sedimentation rate *Sedimentation Rate (ESR) [facility] Work Phone: Start: 08-14-2015 End: 08-25-2015 Bacterica wound culture *Culture and Sensitivity, wound [facility] Work Phone: Start: 07-31-2015 End: 07-31-2015 Chest x-ray X-Ray, Chest, PA & Lateral [facility] Work Phone: Start: 07-31-2015 End: 07-31-2015 Follow Up Appt 3 months Follow Up Appt 3 months [employer] Work Phone: Start: 07-31-2015 End: 07-31-2015 Pulmonary Function Test - complete Pulmonary Function Test - complete [facility] Work Phone: Start: 07-31-2015 End: 07-31-2015 Pulmonary stress test/simple Pulmonary stress testing; simple (eg, 6-minute walk) [facility] Work Phone: Start: 05-30-2015 End: 11-17-2015 Follow Up Appt 6 months Follow Up Appt 6 months [employer] Work Phone: Start: 05-30-2015 End: 11-17-2015 MMM MMM [facility] Work Phone: Start: 07-22-2014 End: 07-22-2014 Follow Up Appt 6 months Follow Up Appt 6 months [employer] Work Phone: Start: 07-22-2014 End: 07-22-2014 PFM PFM [facility] Work Phone: Start: 01-14-2014 End: 01-14-2014 Follow Up Appt 6 months Follow Up Appt 6 months [employer] Work Phone: Start: 01-14-2014 End: 01-14-2014 MMM MMM [facility] Work Phone: Start: 12-14-2013 End: 11-17-2015 *Hepatic Function Panel *Hepatic Function Panel [employer] Phone: Start: 12-14-2013 End: 11-17-2015 Lipid panel [AGGREGATE] *Lipid Profile CC PCP [facility] Work Phone: Start: 06-11-2013 End: 01-14-2014 Ecg routine ecg w/least 12 lds w/i&r EKG (In office) [facility] Work Phone: Start: 06-11-2013 End: 01-14-2014 Follow Up Appt 6 months Follow Up Appt 6 months [employer] Work Phone: Start: 06-11-2013 End: 01-14-2014 PFM PFM [facility] Work Phone: Start: 11-24-2012 End: 05-15-2013 Follow Up Appt 6 months Follow Up Appt 6 months [facility] Work Phone: Start: 01-17-2012 End: 05-15-2013 *Hepatic Function Panel *Hepatic Function Panel [facility] Work Phone: Start: 01-17-2012 End: 01-17-2012 Ecg routine ecg w/least 12 lds w/i&r EKG (In office) [facility] Work Phone: Start: 01-17-2012 End: 01-17-2012 Follow Up Appt 6 months Follow Up Appt 6 months [facility] Work Phone: Start: 01-17-2012 End: 05-15-2013 Lipid panel [AGGREGATE] *Lipid Profile [facility] Work Phone: Start: 01-28-2010 Hepatitis B vaccination HEP B VACCINE (3 of 3 - 19+ 3-dose series) [employer] Start: 01-28-2010 Hepatitis B Vaccines (3 of 3 - 19+ 3-dose series) Hepatitis B Vaccines (3 of 3 - 19+ 3-dose series) [facility] Start: 2008 Abdominal aortic aneurysm screening ABDOMINAL AORTIC ANEURYSM HIGH RISK SCREEN [facility] Work Phone: Start: 2008 Pneumococcal vaccination PNEUMOCOCCAL VACCINE SERIES (1 of 2 - PCV13) [facility] Work Phone: Start: 2003 RSV Immunization aged 60 or older (1 - 1-dose 60+ series) RSV Immunization aged 60 or older (1 - 1-dose 60+ series) [facility] [employer] Start: 1993 Colonoscopy [facility] Start: 1993 Prostate specific antigen measurement PROSTATE CANCER SCREENING DISCUSSION [facility] Work Phone: Start: 1993 Protein mass conc COLON CANCER SCREENING DISCUSSION [facility] Work Phone: Start: 1993 Zoster vaccine hzv live for subcutaneous use ZOSTER (SHINGLES) VACCINE (1 of 2) [facility] Start: 1993 Zoster Vaccines (1 of 2) Zoster Vaccines (1 of 2) [facility] Start: 1983 Fasting lipid profile LIPID SCREENING [facility] Work Phone: Start: 1962 Third diphtheria, tetanus and acellular pertussis (DTaP) vaccination TDAP (ADULT) [facility] Start: 1961 Diabetes: Estimated Glomerular Filtration Rate for Kidney Health Diabetes: Estimated Glomerular Filtration Rate for Kidney Health [facility] Start: 1961 Diabetes: Urine Albumin-Creatinine Ratio for [facility] Diabetes: Urine Albumin-Creatinine Ratio for Kidney Health [facility] Start: [address] [facility] Start: 1959 COVID-19 VACCINE (1) COVID-19 VACCINE (1) [employer] [facility] Start: 1955 Depression Screening Depression Screening [facility] Start: 1949 Pneumococcal vaccination PNEUMOCOCCAL VACCINE SERIES (1 - PCV) [facility] Start: 1943 Examination of skin Derm Melanoma Skin Check [facility] Start: 1943 Hepatitis C antibody, confirmatory test HEPATITIS C VIRUS SCREENING [facility] Start: 1943 Hepatitis C screening HEPATITIS C VIRUS SCREENING [facility] Start: 1943 Medicare Annual Wellness (AWV) Medicare Annual Wellness (AWV) [facility] Start: 1943 Potassium [Moles/Vol] POTASSIUM 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 antibiotics Long-term current use of high risk medication other than anticoagulant 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, care home, current use On statin therapy Other care home (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 Personal history of other malignant neoplasm of skin Cervical disc disorder Cervical disc disorder, unspecified, unspecified cervical region Primary osteoarthritis of both knees Seborrheic eczema Eczema, unspecified type Encounter for long-term (current) use of non-steroidal anti-inflammatories 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 Osteoarthritis of both knees, unspecified osteoarthritis type Every 8 Weeks for 6 Occurrences starting 05/19/2022 until 05/19/2023 [employer] Comment on above: Every 8 Weeks for 6 Occurrences starting 05/19/2022 until 05/19/2023 End: 09-20-2023 Alanine aminotransferase [Enzymatic activity/volume] in Serum or Plasma ALT Lab Routine Psoriatic arthritis Psoriatic arthritis mutilans Psoriasis Pustulosis [...] other than anticoagulant On statin therapy Other intermodal dispatcher (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 Cervical disc disorder Cervical disc disorder, unspecified, unspecified cervical region Primary osteoarthritis of both knees Every 12 Weeks for 4 Occurrences starting 09/20/2022 until 09/20/2023 [employer] Comment on above: Every 12 Weeks for 4 Occurrences startin g 09/20/2022 until 09/20/2023 End: 07-04-2024 Alanine aminotransferase [Enzymatic activity/volume] in Serum or Plasma ALT Lab Routine Psoriatic arthritis 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 Abnormal renal function test Encounter for long-term (current) use of non-steroidal anti-inflammatories History of malignant neoplasm of skin History of osteomyelitis Long-term current use of high risk medication other than anticoagulant 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, care home, current use On statin therapy Other care home (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 Cervical disc disorder Cervical disc disorder, unspecified, unspecified cervical region Primary osteoarthritis of both knees Infliximab (Remicade) long-term use Every 12 Weeks for 4 Occurrences starting 07/04/2023 until 07/04/2024 [employer] Comment on above: Every 12 Weeks for 4 Occurrences startin g 07/04/2023 until 07/04/2024 End: 10-26-2024 Alanine aminotransferase [Enzymatic activity/volume] in Serum or Plasma ALT Lab Routine Psoriatic arthritis mutilans Psoriatic arthritis Primary osteoarthritis of both knees Cervical disc disorder, unspecified, unspecified cervical region Cervical disc disorder Pustulosis palmaris et plantaris Psoriasis Seborrheic eczema Photoaged skin Other skin changes due to chronic exposure to nonionizing radiation Eczema, unspecified type Asteatosis cutis Actinic keratosis Personal history of other malignant neoplasm of skin Other intermodal dispatcher (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 On statin therapy Nocturia 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, intermodal dispatcher, current use Long-term current use of high risk medication other than anticoagulant History of osteomyelitis History of malignant neoplasm of skin Encounter for long-term (current) use of non-steroidal anti-inflammatories Every 12 Weeks for 4 Occurrences starting 10/26/2023 until 10/26/2024 [facility] Comment on above: Every 12 Weeks for 4 Occurrences startin g 10/26/2023 until 10/26/2024 End: 05-07-2025 Alanine aminotransferase [Enzymatic activity/volume] in Serum or Plasma ALT Lab Routine Psoriatic arthritis Psoriatic arthritis mutilans Hyperchromic anemia Macrocytic anemia Abnormal renal function test Encounter for long-term (current) use of non-steroidal anti-inflammatories History of malignant neoplasm of skin History of osteomyelitis Infliximab (Remicade) long-term use Long-term current use of high risk medication other than anticoagulant On statin therapy Other intermodal dispatcher (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 Personal history of other malignant neoplasm of skin Cervical disc disorder Cervical disc disorder, unspecified, unspecified cervical region Primary osteoarthritis of both knees 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, care home, current use Seborrheic eczema Eczema, unspecified type [facility] 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 Osteoarthritis of both knees, unspecified osteoarthritis type Every 12 Weeks for 4 Occurrences starting 05/07/2024 until 05/07/2025 [facility] [employer] [facility] Comment on above: Every 12 Weeks for 4 Occurrences startin g 05/07/2024 until 05/07/2025 End: 01-25-2026 Alanine aminotransferase [Enzymatic activity/volume] in Serum or Plasma ALT Lab Routine Psoriatic arthritis Primary osteoarthritis of both knees Cervical disc disorder, unspecified, unspecified cervical region Cervical disc disorder Macrocytic anemia Hyperchromic anemia Vesicular palmoplantar eczema Senile lentigo Seborrheic keratosis Seborrheic eczema Pustulosis palmaris et plantaris Psoriasis Photoaged skin Other skin changes due to chronic exposure to nonionizing radiation Eczema, unspecified type Asteatosis cutis Actinic keratosis Other proteinuria Other intermodal dispatcher (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 On statin therapy 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, intermodal dispatcher, current use Nocturia Long-term current use of high risk medication other than anticoagulant 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 Asteatosis cutis Seborrheic eczema Long-term current use of high risk medication other than anticoagulant 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, intermodal dispatcher, current use Other intermodal dispatcher (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 Eczema, unspecified type Cervical disc disorder Cervical disc disorder, unspecified, unspecified cervical region Osteoarthritis of both knees, unspecified osteoarthritis type Primary osteoarthritis of both knees Psoriasis [facility] 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 Encounter for long-term (current) use of non-steroidal anti-inflammatories 6 Occurrences starting 10/08/2019 until 10/08/2020, 1 completed [facility] [employer] Comment on above: 6 Occurrences starting 10/08/2019 until 10/08/2020, 1 completed End: 09-22-2021 ALT [Catalytic activity/Vol] ALT Lab Routine Psoriatic arthritis mutilans Psoriatic arthritis Psoriasis Eczema, unspecified type Personal history of other malignant neoplasm of skin Other care home (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, intermodal dispatcher, current use Long-term current use of high risk medication other than anticoagulant History of malignant neoplasm of skin Encounter for long-term (current) use of non-steroidal anti-inflammatories Primary osteoarthritis of both knees Osteoarthritis of both knees, unspecified osteoarthritis type Cervical disc disorder, unspecified, unspecified cervical region Cervical disc disorder Pustulosis palmaris et plantaris 6 Occurrences starting 11/04/2020 until 09/22/2021 [facility] Comment on above: 6 Occurrences starting 11/04/2020 until 09/22/2021 Anaerobic Culture Anaerobic Culture [facility] Work Phone: Anaerobic microbial culture Anaerobic Culture [facility] Work Phone: Anion gap in Serum o r Plasma [facility] Anion gap in Serum o r Plasma [facility] Anion gap in Serum o r Plasma [facility] End: 05-19-2023 Aspartate aminotransferase [Enzymatic activity/volume] in Serum or Plasma AST Lab Routine Psoriatic arthritis Psoriatic arthritis mutilans Unspecified open wound, unspecified foot, initial encounter 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 Photoaged skin CRP elevated History of malignant neoplasm of skin History of osteomyelitis [facility] (current) use of antibiotics Long-term current use of high risk medication other than anticoagulant 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, intermodal dispatcher, current use On statin therapy Other care home (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 Personal history of other malignant neoplasm of skin Cervical disc disorder Cervical disc disorder, unspecified, unspecified cervical region Primary osteoarthritis of both knees Seborrheic eczema Eczema, unspecified type Encounter for long-term (current) use of non-steroidal anti-inflammatories [facility] 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 Osteoarthritis of both knees, unspecified osteoarthritis type Every 8 Weeks for 6 Occurrences starting 05/19/2022 until 05/19/2023 [employer] Comment on above: Every 8 Weeks for 6 Occurrences starting 05/19/2022 until 05/19/2023 End: 09-20-2023 Aspartate aminotransferase [Enzymatic activity/volume] in Serum or Plasma AST Lab Routine Psoriatic arthritis Psoriatic arthritis mutilans Psoriasis Pustulosis [...] other than anticoagulant On statin therapy Other care home (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 Cervical disc disorder Cervical disc disorder, unspecified, unspecified cervical region Primary osteoarthritis of both knees Every 12 Weeks for 4 Occurrences starting 09/20/2022 until 09/20/2023 [employer] Comment on above: Every 12 Weeks for 4 Occurrences startin g 09/20/2022 until 09/20/2023 End: 07-04-2024 Aspartate aminotransferase [Enzymatic activity/volume] in Serum or Plasma AST Lab Routine Psoriatic arthritis 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 Abnormal renal function test Encounter for long-term (current) use of non-steroidal anti-inflammatories History of malignant neoplasm of skin History of osteomyelitis Long-term current use of high risk medication other than anticoagulant 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, care home, current use On statin therapy Other care home (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 Cervical disc disorder Cervical disc disorder, unspecified, unspecified cervical region Primary osteoarthritis of both knees Infliximab (Remicade) long-term use Every 12 Weeks for 4 Occurrences starting 07/04/2023 until 07/04/2024 [facility] Comment on above: Every 12 Weeks for 4 Occurrences startin g 07/04/2023 until 07/04/2024 End: 10-26-2024 Aspartate aminotransferase [Enzymatic activity/volume] in Serum or Plasma AST Lab Routine Psoriatic arthritis mutilans Psoriatic arthritis Primary osteoarthritis of both knees Cervical disc disorder, unspecified, unspecified cervical region Cervical disc disorder Pustulosis palmaris et plantaris Psoriasis Seborrheic eczema Photoaged skin Other skin changes due to chronic exposure to nonionizing radiation Eczema, unspecified type Asteatosis cutis Actinic keratosis Personal history of other malignant neoplasm of skin Other care home (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 On statin therapy Nocturia 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, care home, current use Long-term current use of high risk medication other than anticoagulant History of osteomyelitis History of malignant neoplasm of skin Encounter for long-term (current) use of non-steroidal anti-inflammatories Every 12 Weeks for 4 Occurrences starting 10/26/2023 until 10/26/2024 [facility] Comment on above: Every 12 Weeks for 4 Occurrences startin g 10/26/2023 until 10/26/2024 End: 05-07-2025 Aspartate aminotransferase [Enzymatic activity/volume] in Serum or Plasma AST Lab Routine Psoriatic arthritis Psoriatic arthritis mutilans Hyperchromic anemia Macrocytic anemia Abnormal renal function test Encounter for long-term (current) use of non-steroidal anti-inflammatories History of malignant neoplasm of skin History of osteomyelitis Infliximab (Remicade) long-term use Long-term current use of high risk medication other than anticoagulant On statin therapy Other intermodal dispatcher (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 Personal history of other malignant neoplasm of skin Cervical disc disorder Cervical disc disorder, unspecified, unspecified cervical region Primary osteoarthritis of both knees 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, care home, current use Seborrheic eczema Eczema, unspecified type [facility] 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 Osteoarthritis of both knees, unspecified osteoarthritis type Every 12 Weeks for 4 Occurrences starting 05/07/2024 until 05/07/2025 [employer] Comment on above: Every 12 Weeks for 4 Occurrences startin g 05/07/2024 until 05/07/2025 End: 01-25-2026 Aspartate aminotransferase [Enzymatic activity/volume] in Serum or Plasma AST Lab Routine Psoriatic arthritis Primary osteoarthritis of both knees Cervical disc disorder, unspecified, unspecified cervical region Cervical disc disorder Macrocytic anemia Hyperchromic anemia Vesicular palmoplantar eczema Senile lentigo Seborrheic keratosis Seborrheic eczema Pustulosis palmaris et plantaris Psoriasis Photoaged skin Other skin changes due to chronic exposure to nonionizing radiation Eczema, unspecified type Asteatosis cutis Actinic keratosis Other proteinuria Other intermodal dispatcher (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 On statin therapy 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, care home, current use Nocturia Long-term current use of high risk medication other than anticoagulant [facility] use of drug Infliximab (Remicade) long-term use History of osteomyelitis History of malignant neoplasm of skin Difficulty in urination Current use of care home anticoagulation Abnormal renal function test 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 Occurrences starting 01/25/2025 until 01/25/2026 [employer] Comment on above: Every 12 Weeks for 4 Occurrences startin g 01/25/2025 until 01/25/2026 End: 10-08-2020 AST [Catalytic activity/Vol] AST Lab Routine Psoriatic arthritis 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 Asteatosis cutis Seborrheic eczema Long-term current use of high risk medication other than anticoagulant 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, care home, current use Other care home (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 Eczema, unspecified type Cervical disc disorder Cervical disc disorder, unspecified, unspecified cervical region Osteoarthritis of both knees, unspecified osteoarthritis type Primary osteoarthritis of both knees Psoriasis [facility] 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 Encounter for long-term (current) use of non-steroidal anti-inflammatories 6 Occurrences starting 10/08/2019 until 10/08/2020, 1 completed [employer] Comment on above: 6 Occurrences starting 10/08/2019 until 10/08/2020, 1 completed End: 09-22-2021 AST [Catalytic activity/Vol] AST Lab Routine Psoriatic arthritis mutilans Psoriatic arthritis Psoriasis Eczema, unspecified type Personal history of other malignant neoplasm of skin Other care home (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, intermodal dispatcher, current use Long-term current use of high risk medication other than anticoagulant History of malignant neoplasm of skin Encounter for long-term (current) use of non-steroidal anti-inflammatories Primary osteoarthritis of both knees Osteoarthritis of both knees, unspecified osteoarthritis type Cervical disc disorder, unspecified, unspecified cervical region Cervical disc disorder Pustulosis palmaris et plantaris 6 Occurrences starting 11/04/2020 until 09/22/2021 [facility] Comment on above: 6 Occurrences starting 11/04/2020 until 09/22/2021 Bacteria identified in Unspecified specimen by Anaerobe culture [facility] Work Phone: BUN/Creatinine ratio [facility] BUN/Creatinine ratio [facility] BUN/Creatinine ratio [facility] C reactive protein [Mass/volume] in Serum or Plasma [facility] End: 05-19-2023 C-reactive protein C REACTIVE PROTEIN Lab Routine Psoriatic arthritis Psoriatic arthritis mutilans Unspecified open wound, unspecified foot, initial encounter 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 Photoaged skin CRP elevated History of malignant neoplasm of skin History of osteomyelitis [facility] (current) use of antibiotics Long-term current use of high risk medication other than anticoagulant 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, care home, current use On statin therapy Other intermodal dispatcher (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 Personal history of other malignant neoplasm of skin Cervical disc disorder Cervical disc disorder, unspecified, unspecified cervical region Primary osteoarthritis of both knees Seborrheic eczema Eczema, unspecified type Encounter for long-term (current) use of non-steroidal anti-inflammatories [facility] 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 Osteoarthritis of both knees, unspecified osteoarthritis type Every 8 Weeks for 6 Occurrences starting 05/19/2022 until 05/19/2023 [employer] Comment on above: Every 8 Weeks for 6 Occurrences starting 05/19/2022 until 05/19/2023 End: 09-20-2023 C-reactive protein C REACTIVE PROTEIN Lab Routine Psoriatic arthritis Psoriatic arthritis mutilans Psoriasis Pustulosis [...] other than anticoagulant On statin therapy Other intermodal dispatcher (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 Cervical disc disorder Cervical disc disorder, unspecified, unspecified cervical region Primary osteoarthritis of both knees Every 12 Weeks for 4 Occurrences starting 09/20/2022 until 09/20/2023 [employer] Comment on above: Every 12 Weeks for 4 Occurrences startin g 09/20/2022 until 09/20/2023 End: 07-04-2024 C-reactive protein C REACTIVE PROTEIN Lab Routine Psoriatic arthritis 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 Abnormal renal function test Encounter for long-term (current) use of non-steroidal anti-inflammatories History of malignant neoplasm of skin History of osteomyelitis Long-term current use of high risk medication other than anticoagulant 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, care home, current use On statin therapy Other intermodal dispatcher (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 Cervical disc disorder Cervical disc disorder, unspecified, unspecified cervical region Primary osteoarthritis of both knees Infliximab (Remicade) long-term use Every 12 Weeks for 4 Occurrences starting 07/04/2023 until 07/04/2024 [employer] Comment on above: Every 12 Weeks for 4 Occurrences startin g 07/04/2023 until 07/04/2024 End: 10-26-2024 C-reactive protein C REACTIVE PROTEIN Lab Routine Psoriatic arthritis mutilans Psoriatic arthritis Primary osteoarthritis of both knees Cervical disc disorder, unspecified, unspecified cervical region Cervical disc disorder Pustulosis palmaris et plantaris Psoriasis Seborrheic eczema Photoaged skin Other skin changes due to chronic exposure to nonionizing radiation Eczema, unspecified type Asteatosis cutis Actinic keratosis Personal history of other malignant neoplasm of skin Other intermodal dispatcher (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 On statin therapy Nocturia 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, intermodal dispatcher, current use Long-term current use of high risk medication other than anticoagulant History of osteomyelitis History of malignant neoplasm of skin Encounter for long-term (current) use of non-steroidal anti-inflammatories Every 12 Weeks for 4 Occurrences starting 10/26/2023 until 10/26/2024 [employer] Comment on above: Every 12 Weeks for 4 Occurrences startin g 10/26/2023 until 10/26/2024 End: 05-07-2025 C-reactive protein C REACTIVE PROTEIN Lab Routine Psoriatic arthritis Psoriatic arthritis mutilans Hyperchromic anemia Macrocytic anemia Abnormal renal function test Encounter for long-term (current) use of non-steroidal anti-inflammatories History of malignant neoplasm of skin History of osteomyelitis Infliximab (Remicade) long-term use Long-term current use of high risk medication other than anticoagulant On statin therapy Other intermodal dispatcher (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 Personal history of other malignant neoplasm of skin Cervical disc disorder Cervical disc disorder, unspecified, unspecified cervical region Primary osteoarthritis of both knees 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, care home, current use Seborrheic eczema Eczema, unspecified type [facility] 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 Osteoarthritis of both knees, unspecified osteoarthritis type Every 12 Weeks for 4 Occurrences starting 05/07/2024 until 05/07/2025 [facility] Comment on above: Every 12 Weeks for 4 Occurrences startin g 05/07/2024 until 05/07/2025 End: 01-25-2026 C-reactive protein C REACTIVE PROTEIN Lab Routine Psoriatic arthritis Primary osteoarthritis of both knees Cervical disc disorder, unspecified, unspecified cervical region Cervical disc disorder Macrocytic anemia Hyperchromic anemia Vesicular palmoplantar eczema Senile lentigo Seborrheic keratosis Seborrheic eczema Pustulosis palmaris et plantaris Psoriasis Photoaged skin Other skin changes due to chronic exposure to nonionizing radiation Eczema, unspecified type Asteatosis cutis Actinic keratosis Other proteinuria Other intermodal dispatcher (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 On statin therapy 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, intermodal dispatcher, current use Nocturia Long-term current use of high risk medication other than anticoagulant 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 Comment on above: Every 12 Weeks for 4 Occurrences startin g 01/25/2025 until 01/25/2026 Calcium [Mass/volume ] in Serum or Plasma [facility] Calcium [Mass/volume ] in Serum or Plasma [facility] Calcium [Mass/volume ] in Serum or Plasma [facility] Carbon dioxide, tota l [Moles/volume] in Central venous blood [facility] Carbon dioxide, tota l [Moles/volume] in Central venous blood [facility] Carbon dioxide, tota l [Moles/volume] in Central venous blood [facility] End: 10-08-2020 CBC, EDIF, PLATELET CBC, EDIF, PLATELET Lab Routine Psoriatic arthritis 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 Asteatosis cutis Seborrheic eczema Long-term current use of high risk medication other than anticoagulant 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, intermodal dispatcher, current use Other intermodal dispatcher (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 Eczema, unspecified type Cervical disc disorder Cervical disc disorder, unspecified, unspecified cervical region Osteoarthritis of both knees, unspecified osteoarthritis type Primary osteoarthritis of both knees Psoriasis 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 Encounter for long-term (current) use of non-steroidal anti-inflammatories 6 Occurrences starting 10/08/2019 until 10/08/2020, 1 completed [employer] Comment on above: 6 Occurrences starting 10/08/2019 until 10/08/2020, 1 completed End: 09-22-2021 Complete blood count with white cell differential, automated CBC, EDIF, PLATELET Lab Routine Psoriatic arthritis mutilans Psoriatic arthritis Psoriasis Eczema, unspecified type Personal history of other malignant neoplasm of skin Other care home (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, care home, current use Long-term current use of high risk medication other than anticoagulant History of malignant neoplasm of skin Encounter for long-term (current) use of non-steroidal anti-inflammatories Primary osteoarthritis of both knees Osteoarthritis of both knees, unspecified osteoarthritis type Cervical disc disorder, unspecified, unspecified cervical region Cervical disc disorder Pustulosis palmaris et plantaris 6 Occurrences starting 11/04/2020 until 09/22/2021 [employer] [facility] Comment on above: 6 Occurrences starting 11/04/2020 until 09/22/2021 End: 05-19-2023 Complete blood count with white cell differential, automated CBC, EDIF, PLATELET Lab Routine Psoriatic arthritis Psoriatic arthritis mutilans Unspecified open wound, unspecified foot, initial encounter 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 Photoaged skin CRP elevated History of malignant neoplasm of skin History of osteomyelitis 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 (current) use of antibiotics Long-term current use of high risk medication other than anticoagulant 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, intermodal dispatcher, current use On statin therapy Other care home (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 Personal history of other malignant neoplasm of skin Cervical disc disorder Cervical disc disorder, unspecified, unspecified cervical region Primary osteoarthritis of both knees Seborrheic eczema Eczema, unspecified type Encounter for long-term (current) use of non-steroidal anti-inflammatories [facility] 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 Osteoarthritis of both knees, unspecified osteoarthritis type Every 8 Weeks for 6 Occurrences starting 05/19/2022 until 05[facility]19/[facility]: Every 8 Weeks for 6 Occurrences starting 05/19/2022 until 05/19/2023 End: 09-20-2023 Complete blood count with white cell differential, automated CBC, EDIF, PLATELET Lab Routine Psoriatic arthritis Psoriatic arthritis mutilans Psoriasis Pustulosis [...] other than anticoagulant On statin therapy Other intermodal dispatcher (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 Cervical disc disorder Cervical disc disorder, unspecified, unspecified cervical region Primary osteoarthritis of both knees Every 12 Weeks for 4 Occurrences starting 09/20/2022 until 09/20/2023 [employer] Comment on above: Every 12 Weeks for 4 Occurrences startin g 09/20/2022 until 09/20/2023 End: 07-04-2024 Complete blood count with white cell differential, automated CBC, EDIF, PLATELET Lab Routine Psoriatic arthritis 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 Abnormal renal function test Encounter for long-term (current) use of non-steroidal anti-inflammatories History of malignant neoplasm of skin History of osteomyelitis Long-term current use of high risk medication other than anticoagulant 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, intermodal dispatcher, current use On statin therapy Other care home (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 Cervical disc disorder Cervical disc disorder, unspecified, unspecified cervical region Primary osteoarthritis of both knees Infliximab (Remicade) long-term use Every 12 Weeks for 4 Occurrences starting 07/04/2023 until 07/04/2024 [employer] Comment on above: Every 12 Weeks for 4 Occurrences startin g 07/04/2023 until 07/04/2024 End: 10-26-2024 Complete blood count with white cell differential, automated CBC, EDIF, PLATELET Lab Routine Psoriatic arthritis mutilans Psoriatic arthritis Primary osteoarthritis of both knees Cervical disc disorder, unspecified, unspecified cervical region Cervical disc disorder Pustulosis palmaris et plantaris Psoriasis Seborrheic eczema Photoaged skin Other skin changes due to chronic exposure to nonionizing radiation Eczema, unspecified type Asteatosis cutis Actinic keratosis Personal history of other malignant neoplasm of skin Other intermodal dispatcher (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 On statin therapy Nocturia 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, care home, current use Long-term current use of high risk medication other than anticoagulant History of osteomyelitis History of malignant neoplasm of skin Encounter for long-term (current) use of non-steroidal anti-inflammatories Every 12 Weeks for 4 Occurrences starting 10/26/2023 until 10/26/2024 [facility] Comment on above: Every 12 Weeks for 4 Occurrences startin g 10/26/2023 until 10/26/2024 End: 05-07-2025 Complete blood count with white cell differential, automated CBC, EDIF, PLATELET Lab Routine Psoriatic arthritis Psoriatic arthritis mutilans Hyperchromic anemia Macrocytic anemia Abnormal renal function test Encounter for long-term (current) use of non-steroidal anti-inflammatories History of malignant neoplasm of skin History of osteomyelitis Infliximab (Remicade) long-term use Long-term current use of high risk medication other than anticoagulant On statin therapy Other care home (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 Personal history of other malignant neoplasm of skin Cervical disc disorder Cervical disc disorder, unspecified, unspecified cervical region Primary osteoarthritis of both knees 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, intermodal dispatcher, current use Seborrheic eczema Eczema, unspecified type [facility] 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 Osteoarthritis of both knees, unspecified osteoarthritis type Every 12 Weeks for 4 Occurrences starting 05/07/2024 until 05/07/2025 [facility] Comment on above: Every 12 Weeks for 4 Occurrences startin g 05/07/2024 until 05/07/2025 End: 01-25-2026 Complete blood count with white cell differential, automated CBC, EDIF, PLATELET Lab Routine Psoriatic arthritis Primary osteoarthritis of both knees Cervical disc disorder, unspecified, unspecified cervical region Cervical disc disorder Macrocytic anemia Hyperchromic anemia Vesicular palmoplantar eczema Senile lentigo Seborrheic keratosis Seborrheic eczema Pustulosis palmaris et plantaris Psoriasis Photoaged skin Other skin changes due to chronic exposure to nonionizing radiation Eczema, unspecified type Asteatosis cutis Actinic keratosis Other proteinuria Other intermodal dispatcher (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 On statin therapy 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, care home, current use Nocturia Long-term current use of high risk medication other than anticoagulant 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 Infliximab (Remicade) long-term use History of osteomyelitis History of malignant neoplasm of skin Difficulty in urination Current use of intermodal dispatcher anticoagulation Abnormal renal function test 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 Occurrences starting 01/25/2025 until 01/25/2026 [employer] Comment on above: Every 12 Weeks for 4 Occurrences startin g 01/25/2025 until 01/25/2026 Complete blood count with white cell differential, automated CBC, EDIF, PLATELET Lab Routine Stage 3b chronic kidney disease Ordered: 02/28/2025 [employer] Comment on above: Ordered: 02/28/2025 End: 10-08-2020 Creatinine [Mass/Vol] CREATININE SERUM Lab Routine Psoriatic arthritis 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 Asteatosis cutis Seborrheic eczema Long-term current use of high risk medication other than anticoagulant 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, intermodal dispatcher, current use Other intermodal dispatcher (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 Eczema, unspecified type Cervical disc disorder Cervical disc disorder, unspecified, unspecified cervical region Osteoarthritis of both knees, unspecified osteoarthritis type Primary osteoarthritis of both knees Psoriasis 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 Encounter for long-term (current) use of non-steroidal anti-inflammatories 6 Occurrences starting 10/08/2019 until 10/08/2020, 1 completed [employer] Comment on above: 6 Occurrences starting 10/08/2019 until 10/08/2020, 1 completed End: 09-22-2021 Creatinine [Mass/Vol] CREATININE SERUM Lab Routine Psoriatic arthritis mutilans Psoriatic arthritis Psoriasis Eczema, unspecified type Personal history of other malignant neoplasm of skin Other intermodal dispatcher (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, intermodal dispatcher, current use Long-term current use of high risk medication other than anticoagulant History of malignant neoplasm of skin Encounter for long-term (current) use of non-steroidal anti-inflammatories Primary osteoarthritis of both knees Osteoarthritis of both knees, unspecified osteoarthritis type Cervical disc disorder, unspecified, unspecified cervical region Cervical disc disorder Pustulosis palmaris et plantaris 6 Occurrences starting 11/04/2020 until 09/22/2021 [employer] Comment on above: 6 Occurrences starting 11/04/2020 until 09/22/2021 End: 05-19-2023 Creatinine [Mass/volume] in Serum or Plasma CREATININE SERUM Lab Routine Psoriatic arthritis Psoriatic arthritis mutilans Unspecified open wound, unspecified foot, initial encounter 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 Photoaged skin CRP elevated History of malignant neoplasm of skin History of osteomyelitis [facility] (current) use of antibiotics Long-term current use of high risk medication other than anticoagulant 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, intermodal dispatcher, current use On statin therapy Other care home (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 Personal history of other malignant neoplasm of skin Cervical disc disorder Cervical disc disorder, unspecified, unspecified cervical region Primary osteoarthritis of both knees Seborrheic eczema Eczema, unspecified type Encounter for long-term (current) use of non-steroidal anti-inflammatories 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 Osteoarthritis of both knees, unspecified osteoarthritis type Every 8 Weeks for 6 Occurrences starting 05/19/2022 until 05/19/2023 [employer] Comment on above: Every 8 Weeks for 6 Occurrences starting 05/19/2022 until 05/19/2023 End: 09-20-2023 Creatinine [Mass/volume] in Serum or Plasma CREATININE SERUM Lab Routine Psoriatic arthritis Psoriatic arthritis mutilans Psoriasis Pustulosis [...] other than anticoagulant On statin therapy Other intermodal dispatcher (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 Cervical disc disorder Cervical disc disorder, unspecified, unspecified cervical region Primary osteoarthritis of both knees Every 12 Weeks for 4 Occurrences starting 09/20/2022 until 09/20/2023 [employer] Comment on above: Every 12 Weeks for 4 Occurrences startin g 09/20/2022 until 09/20/2023 End: 07-04-2024 Creatinine [Mass/volume] in Serum or Plasma CREATININE SERUM Lab Routine Psoriatic arthritis 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 Abnormal renal function test Encounter for long-term (current) use of non-steroidal anti-inflammatories History of malignant neoplasm of skin History of osteomyelitis Long-term current use of high risk medication other than anticoagulant 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, intermodal dispatcher, current use On statin therapy Other care home (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 Cervical disc disorder Cervical disc disorder, unspecified, unspecified cervical region Primary osteoarthritis of both knees Infliximab (Remicade) long-term use Every 12 Weeks for 4 Occurrences starting 07/04/2023 until 07/04/2024 [employer] [facility] Comment on above: Every 12 Weeks for 4 Occurrences startin g 07/04/2023 until 07/04/2024 End: 10-26-2024 Creatinine [Mass/volume] in Serum or Plasma CREATININE SERUM Lab Routine Psoriatic arthritis mutilans Psoriatic arthritis Primary osteoarthritis of both knees Cervical disc disorder, unspecified, unspecified cervical region Cervical disc disorder Pustulosis palmaris et plantaris Psoriasis Seborrheic eczema Photoaged skin Other skin changes due to chronic exposure to nonionizing radiation Eczema, unspecified type Asteatosis cutis Actinic keratosis Personal history of other malignant neoplasm of skin Other care home (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 On statin therapy Nocturia 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, care home, current use Long-term current use of high risk medication other than anticoagulant History of osteomyelitis History of malignant neoplasm of skin Encounter for long-term (current) use of non-steroidal anti-inflammatories Every 12 Weeks for 4 Occurrences starting 10/26/2023 until 10/26/2024 [employer] Comment on above: Every 12 Weeks for 4 Occurrences startin g 10/26/2023 until 10/26/2024 End: 05-07-2025 Creatinine [Mass/volume] in Serum or Plasma CREATININE SERUM Lab Routine Psoriatic arthritis Psoriatic arthritis mutilans Hyperchromic anemia Macrocytic anemia Abnormal renal function test Encounter for long-term (current) use of non-steroidal anti-inflammatories History of malignant neoplasm of skin History of osteomyelitis Infliximab (Remicade) long-term use Long-term current use of high risk medication other than anticoagulant On statin therapy Other intermodal dispatcher (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 Personal history of other malignant neoplasm of skin Cervical disc disorder Cervical disc disorder, unspecified, unspecified cervical region Primary osteoarthritis of both knees 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, care home, current use Seborrheic eczema Eczema, unspecified type [facility] 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 Osteoarthritis of both knees, unspecified osteoarthritis type Every 12 Weeks for 4 Occurrences starting 05/07/2024 until 05/07/2025 [facility] Comment on above: Every 12 Weeks for 4 Occurrences startin g 05/07/2024 until 05/07/2025 End: 01-25-2026 Creatinine [Mass/volume] in Serum or Plasma CREATININE Lab Routine Psoriatic arthritis Primary osteoarthritis of both knees Cervical disc disorder, unspecified, unspecified cervical region Cervical disc disorder Macrocytic anemia Hyperchromic anemia Vesicular palmoplantar eczema Senile lentigo Seborrheic keratosis Seborrheic eczema Pustulosis palmaris et plantaris Psoriasis Photoaged skin Other skin changes due to chronic exposure to nonionizing radiation Eczema, unspecified type Asteatosis cutis Actinic keratosis Other proteinuria Other care home (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 On statin therapy 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, care home, current use Nocturia Long-term current use of high risk medication other than anticoagulant [facility] use of drug Infliximab (Remicade) long-term use History of osteomyelitis History of malignant neoplasm of skin Difficulty in urination Current use of care home anticoagulation Abnormal renal function test 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 Asteatosis cutis Seborrheic eczema Long-term current use of high risk medication other than anticoagulant 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, intermodal dispatcher, current use Other care home (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 Eczema, unspecified type Cervical disc disorder Cervical disc disorder, unspecified, unspecified cervical region Osteoarthritis of both knees, unspecified osteoarthritis type Primary osteoarthritis of both knees Psoriasis [facility] 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 Encounter for long-term (current) use of non-steroidal anti-inflammatories 6 Occurrences starting 10/08/2019 until 10/08/2020, 1 completed [employer] Comment on above: 6 Occurrences starting 10/08/2019 until 10/08/2020, 1 completed End: 09-22-2021 CRP [Mass/Vol] C REACTIVE PROTEIN Lab Routine Psoriatic arthritis mutilans Psoriatic arthritis Psoriasis Eczema, unspecified type Personal history of other malignant neoplasm of skin Other care home (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, intermodal dispatcher, current use Long-term current use of high risk medication other than anticoagulant History of malignant neoplasm of skin Encounter for long-term (current) use of non-steroidal anti-inflammatories Primary osteoarthritis of both knees Osteoarthritis of both knees, unspecified osteoarthritis type Cervical disc disorder, unspecified, unspecified cervical region Cervical disc disorder Pustulosis palmaris et plantaris 6 Occurrences starting 11/04/2020 until 09/22/2021 [employer] Comment on above: 6 Occurrences starting 11/04/2020 until 09/22/2021 Erythrocyte mean corpuscular volume determination [facility] Erythrocyte mean corpuscular volume determination [facility] Erythrocyte mean corpuscular volume determination [facility] Erythrocyte sedimentation rate [facility] Glucose [Mass/volume ] in Serum or Plasma [facility] Glucose [Mass/volume ] in Serum or Plasma [facility] Glucose [Mass/volume ] in Serum or Plasma [facility] Hematocrit [Volume Fraction] of Blood [facility] Hematocrit [Volume Fraction] of Blood [facility] Hematocrit [Volume Fraction] of Blood [facility] Hemoglobin [Mass/vol ume] in Blood [facility] Hemoglobin [Mass/vol ume] in Blood [facility] Hemoglobin [Mass/vol ume] in Blood [facility] Leukocytes [#/volume ] in Blood [facility] Leukocytes [#/volume ] in Blood [facility] Leukocytes [#/volume ] in Blood [facility] Magnesium [Mass/volu me] in Serum or Plasma MAGNESIUM Lab Routine Stage 3b chronic kidney disease Ordered: 02/28/2025 [employer] Comment on above: Ordered: 02/28/2025 Mean corpuscular hemoglobin concentration determination [facility] Mean corpuscular hemoglobin concentration determination [facility] Mean corpuscular hemoglobin concentration determination [facility] Mean corpuscular hemoglobin determination [facility] Mean corpuscular hemoglobin determination [facility] Mean corpuscular hemoglobin determination [facility] Measurement of renal function [facility] Measurement of renal function [facility] Measurement of renal function [facility] MICROALBUMIN/CREATIN INE RATIO MICROALBUMIN/CREATININE RATIO Fluids Routine Stage 3b chronic kidney disease Ordered: 02/28/2025 [facility] Comment on above: Ordered: 02/28/2025 Microbial culture, routine Wound Culture [facility] Work Phone: Microscopic observat ion [Identifier] in Unspecified specimen by Gram stain Gram Stain [facility] Work Phone: Neutrophil count [facility] Neutrophil count [facility] Neutrophil count [facility] Neutrophil percent differential count [facility] Neutrophil percent differential count [facility] Neutrophil percent differential count [facility] Patient Education [facility] [employer] Work Phone: Patient referral [facility] Work Phone: Platelets [#/volume] in Blood [facility] Platelets [#/volume] in Blood [facility] Platelets [#/volume] in Blood [facility] Potassium measurement [facility] Potassium measurement [facility] Potassium measurement [facility] PTH INTACT PTH INTACT Lab R outine Stage 3b chronic kidney disease Ordered: 02/28/2025 [facility] Comment on above: Ordered: 02/28/2025 Red blood cell count [facility] Red blood cell count [facility] Red blood cell count [facility] Red cell distributio n width determination [facility] Red cell distributio n width determination [facility] Red cell distributio n width determination [facility] RENAL FUNCTION PANEL RENAL FUNCT ION PANEL Lab Routine Stage 3b chronic kidney disease Ordered: 02/28/2025 [facility] 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, intermodal dispatcher, current use Other intermodal dispatcher (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 Eczema, unspecified type Cervical disc disorder Cervical disc disorder, unspecified, unspecified cervical region Osteoarthritis of both knees, unspecified osteoarthritis type Primary osteoarthritis of both knees Psoriasis [facility] 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 Encounter for long-term (current) use of non-steroidal anti-inflammatories 6 Occurrences starting 10/08/2019 until 10/08/2020, 1 completed [employer] Comment on above: 6 Occurrences starting 10/08/2019 until 10/08/2020, 1 completed End: 09-22-2021 SEDIMENTATION RATE, AUTOMATED SEDIMENTATION RATE, AUTOMATED Lab Routine Psoriatic arthritis mutilans Psoriatic arthritis Psoriasis Eczema, unspecified type Personal history of other malignant neoplasm of skin Other care home (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, intermodal dispatcher, current use Long-term current use of high risk medication other than anticoagulant History of malignant neoplasm of skin Encounter for long-term (current) use of non-steroidal anti-inflammatories Primary osteoarthritis of both knees Osteoarthritis of both knees, unspecified osteoarthritis type Cervical disc disorder, unspecified, unspecified cervical region Cervical disc disorder Pustulosis palmaris et plantaris 6 Occurrences starting 11/04/2020 until 09/22/2021 [employer] Comment on above: 6 Occurrences starting 11/04/2020 until 09/22/2021 End: 05-19-2023 SEDIMENTATION RATE, AUTOMATED SEDIMENTATION RATE, AUTOMATED Lab Routine Psoriatic arthritis Psoriatic arthritis mutilans Unspecified open wound, unspecified foot, initial encounter 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 Photoaged skin CRP elevated History of malignant neoplasm of skin History of osteomyelitis [facility] (current) use of antibiotics Long-term current use of high risk medication other than anticoagulant 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, intermodal dispatcher, current use On statin therapy Other care home (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 Personal history of other malignant neoplasm of skin Cervical disc disorder Cervical disc disorder, unspecified, unspecified cervical region Primary osteoarthritis of both knees Seborrheic eczema Eczema, unspecified type Encounter for long-term (current) use of non-steroidal anti-inflammatories [facility] 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 Osteoarthritis of both knees, unspecified osteoarthritis type Every 8 Weeks for 6 Occurrences starting 05/19/2022 until 05/19/2023 [employer] Comment on above: Every 8 Weeks for 6 Occurrences starting 05/19/2022 until 05/19/2023 End: 09-20-2023 SEDIMENTATION RATE, AUTOMATED SEDIMENTATION RATE, AUTOMATED Lab Routine Psoriatic arthritis Psoriatic arthritis mutilans Psoriasis Pustulosis [...] other than anticoagulant On statin therapy Other intermodal dispatcher (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 Cervical disc disorder Cervical disc disorder, unspecified, unspecified cervical region Primary osteoarthritis of both knees Every 12 Weeks for 4 Occurrences starting 09/20/2022 until 09/20/2023 [facility] Comment on above: Every 12 Weeks for 4 Occurrences startin g 09/20/2022 until 09/20/2023 End: 07-04-2024 SEDIMENTATION RATE, AUTOMATED SEDIMENTATION RATE, AUTOMATED Lab Routine Psoriatic arthritis 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 Abnormal renal function test Encounter for long-term (current) use of non-steroidal anti-inflammatories History of malignant neoplasm of skin History of osteomyelitis Long-term current use of high risk medication other than anticoagulant 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, care home, current use On statin therapy Other care home (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 Cervical disc disorder Cervical disc disorder, unspecified, unspecified cervical region Primary osteoarthritis of both knees Infliximab (Remicade) long-term use Every 12 Weeks for 4 Occurrences starting 07/04/2023 until 07/04/2024 [facility] Comment on above: Every 12 Weeks for 4 Occurrences startin g 07/04/2023 until 07/04/2024 End: 10-26-2024 SEDIMENTATION RATE, AUTOMATED SEDIMENTATION RATE, AUTOMATED Lab Routine Psoriatic arthritis mutilans Psoriatic arthritis Primary osteoarthritis of both knees Cervical disc disorder, unspecified, unspecified cervical region Cervical disc disorder Pustulosis palmaris et plantaris Psoriasis Seborrheic eczema Photoaged skin Other skin changes due to chronic exposure to nonionizing radiation Eczema, unspecified type Asteatosis cutis Actinic keratosis Personal history of other malignant neoplasm of skin Other care home (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 On statin therapy Nocturia 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, intermodal dispatcher, current use Long-term current use of high risk medication other than anticoagulant History of osteomyelitis History of malignant neoplasm of skin Encounter for long-term (current) use of non-steroidal anti-inflammatories Every 12 Weeks for 4 Occurrences starting 10/26/2023 until 10/26/2024 [facility] Comment on above: Every 12 Weeks for 4 Occurrences startin g 10/26/2023 until 10/26/2024 End: 05-07-2025 SEDIMENTATION RATE, AUTOMATED SEDIMENTATION RATE, AUTOMATED Lab Routine Psoriatic arthritis Psoriatic arthritis mutilans Hyperchromic anemia Macrocytic anemia Abnormal renal function test Encounter for long-term (current) use of non-steroidal anti-inflammatories History of malignant neoplasm of skin History of osteomyelitis Infliximab (Remicade) long-term use Long-term current use of high risk medication other than anticoagulant On statin therapy Other care home (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 Personal history of other malignant neoplasm of skin Cervical disc disorder Cervical disc disorder, unspecified, unspecified cervical region Primary osteoarthritis of both knees 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, care home, current use Seborrheic eczema Eczema, unspecified type 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 Osteoarthritis of both knees, unspecified osteoarthritis type Every 12 Weeks for 4 Occurrences starting 05/07/2024 until 05/07/2025 [employer] Comment on above: Every 12 Weeks for 4 Occurrences startin g 05/07/2024 until 05/07/2025 End: 01-25-2026 SEDIMENTATION RATE, AUTOMATED SEDIMENTATION RATE, AUTOMATED Lab Routine Psoriatic arthritis Primary osteoarthritis of both knees Cervical disc disorder, unspecified, unspecified cervical region Cervical disc disorder Macrocytic anemia Hyperchromic anemia Vesicular palmoplantar eczema Senile lentigo Seborrheic keratosis Seborrheic eczema Pustulosis palmaris et plantaris Psoriasis Photoaged skin Other skin changes due to chronic exposure to nonionizing radiation Eczema, unspecified type Asteatosis cutis Actinic keratosis Other proteinuria Other care home (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 On statin therapy 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, intermodal dispatcher, current use Nocturia Long-term current use of high risk medication other than anticoagulant [facility] use of drug Infliximab (Remicade) long-term use History of osteomyelitis History of malignant neoplasm of skin Difficulty in urination Current use of intermodal dispatcher anticoagulation Abnormal renal function test 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 Comment on above: Every 12 Weeks for 4 Occurrences startin g 01/25/2025 until 01/25/2026 Serum chloride measurement [facility] Serum chloride measurement [facility] Serum chloride measurement [facility] Sodium [Moles/volume ] in Urine SODIUM, RANDOM URINE Fluids Routine Stage 3b chronic kidney disease Ordered: 02/28/2025 [facility] Comment on above: Ordered: 02/28/2025 Sodium measurement [facility] Sodium measurement [facility] Sodium measurement [facility] Tissue exam Tissue exam Path ology and Cytology Timed Neoplasm of uncertain behavior of skin Release Upon Ordering for 1 Occurrences starting 07/11/2024 [facility] [employer] Work Phone: Comment on above: Release Upon Ordering for 1 Occurrences starting 07/11/2024 End: 05-19-2023 Urate [Mass/volume] in Serum or Plasma URIC ACID Lab Routine Psoriatic arthritis Psoriatic arthritis mutilans Unspecified open wound, unspecified foot, initial encounter 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 Photoaged skin CRP elevated History of malignant neoplasm of skin History of osteomyelitis [facility] (current) use of antibiotics Long-term current use of high risk medication other than anticoagulant 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, care home, current use On statin therapy Other care home (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 Personal history of other malignant neoplasm of skin Cervical disc disorder Cervical disc disorder, unspecified, unspecified cervical region Primary osteoarthritis of both knees Seborrheic eczema Eczema, unspecified type Encounter for long-term (current) use of non-steroidal anti-inflammatories 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 Comment on above: Every 8 Weeks for 6 Occurrences starting 05/19/2022 until 05/19/2023 Urate [Mass/volume] in Serum or Plasma URIC ACID Lab Routine Stage 3b chronic kidney disease Ordered: 02/28/2025 [facility] Comment on above: Ordered: 02/28/2025 Urea nitrogen [Mass/volume] in Serum or Plasma [facility] Urea nitrogen [Mass/volume] in Serum or Plasma [facility] Urea nitrogen [Mass/volume] in Serum or Plasma [facility] Urinalysis dipstick W Reflex Microscopic panel - Urine URINE MICROSCOPIC Fluids Routine Stage 3b chronic kidney disease Ordered: 02/28/2025 [facility] Comment on above: Ordered: 02/28/2025 Urinalysis, reagent strip without microscopy URINALYSIS, MACRO Fluids Routine Stage 3b chronic kidney disease Ordered: 02/28/2025 [facility] Comment on above: Ordered: 02/28/2025 URINE PROTEIN/CREA RATIO, RANDOM URINE PROTEIN/CREA RATIO, RANDOM Fluids Routine Stage 3b chronic kidney disease Ordered: 02/28/2025 [facility] Comment on above: Ordered: 02/28/2025 End: 05-22-[address] [facility] Comment on above: 1 Occurrences starting 05/22/2025 until 05/22/2025 Vancomycin [Mass/vol ume] in Serum or Plasma --trough [facility] VITAMIN D (25-HYDROXY,TOTAL) VITAMIN D (25-HYDROXY,TOTAL) Lab Routine Stage 3b chronic kidney disease Ordered: 02/28/2025 [facility] Comment on above: Ordered: 02/28/2025 Wound Culture Wound Culture [facility] Work Phone: Immunizations Immunization Date Immunization Notes Care Provider [facility] 09-11-2024 influenza virus vaccine, unspecified formulation Christina Cartagena MD Work Phone: [facility] 09-02-2023 influenza virus vaccine, unspecified formulation Georgina Moore MD Work Phone: [facility] 09-02-2022 influenza, injectabl e, quadrivalent, preservative free [facility] 09-02-2022 influenza, seasonal, injectable Dr. Zach Turner Work Phone: [facility] 09-02-2022 influenza virus vaccine, unspecified formulation Coco Shah Jr., DO Work Phone: [facility] 09-17-2021 influenza virus vaccine, unspecified formulation Coco Shah Jr., DO Work Phone: [facility] Payers Date Payer Category Payer Self-pay [id number] 2008 Commercial Managed C are - HMO [facility] [id number] 2008 Unknown [id number] 2008 Medicare MEDICARE MEDICAR E A AND B xxxxxxxxxxx 2008-Present [place], [place] xxxxxxxxxxx [id number] .[id number] 2008 Medicare MEDICARE MEDICAR E A AND B [id number] 2008-Present [place] [id number] .7.3.119174.315 2008 Medicare [id number]. 1.13.172.2 .7.3.402447.315 2008 Medicare [id number] 2007 Managed Care (unspecified) [id number] .[id number] 2007 Unknown GENERIC EXCHANGE GENERIC EXCHANGE [id number] 2007-Present [id number] .7.3.350838.315 2007 Unknown GENERIC EXCHANGE GENERIC EXCHANGE [id number] 2007-Present [id number] 1.2.840.488808.1.13.172.2 .7.3.208622.315 2007 Unknown 1.2.840.783768. 1.13.172.2 .7.3.088202.315 2007 Unknown [id number] 1945 Unknown [id number] 2.16.840.1.430700.3.579.2 .651 1943 Unknown [id number] 2.16.840.1.194417.3.579.2 .651 1943 Unknown [id number] 2.16.840.1.388702.3.579.2 .983 1943 Unknown [id number] 2.16.840.1.098415.3.579.2 .983 1943 Unknown [id number] 2.16.840.1.509466.3.579.2 .983 1943 Unknown [id number] 2.16.840.1.576173.3.579.2 .983 1943 Unknown [id number] 2.16.840.1.508273.3.579.2 .983 1943 Unknown [id number] 2.16.840.1.786840.3.579.2 .983 1943 Unknown [id number] 2.16.840.1.591799.3.579.2 .983 1943 Unknown [id number] 2.16.840.1.901310.3.579.2 .983 Self-pay SELF PAY BY [employer] REQUEST [id number] Unknown [id number] 2.16.840.1.887675.3.579.2 .462 Unknown [id number] 2.16.840.1.158307.3.579.2 .462 Unknown [id number] 2.16.840.1.573301.3.579.2 .462 Unknown [id number] 2.16.840.1.412833.3.579.2 .462 Unknown [id number] 2.16840.1.527745.3.579.2 .462 Unknown [id number] 2.16840.1.076459.3.579.2 .462 Unknown [id number] 2.840.1.844489.3.579.2 .462 Unknown [id number] 2.840.1.253494.3.579.2 .462 Unknown [id number] 2.840.1.920995.3.579.2 .462 Unknown [id number] 2.840.1.477011.3.579.2 .462 Unknown [id number] 2.840.1.254783.3.579.2 .462 Unknown [id number] 2.840.1.273135.3.579.2 .462 Unknown [id number] 2.840.1.773711.3.579.2 .462 Unknown [id number] 2.840.1.572648.3.579.2 .462 Unknown [id number] 2.840.1.082017.3.579.2 .462 Unknown [id number] 2.840.1.236634.3.579.2 .462 Unknown [id number] 2.840.1.006664.3.579.2 .462 Unknown [id number] 2.840.1.576308.3.579.2 .462 Unknown [id number] 2.840.1.424932.3.579.2 .462 Unknown [id number] 2.16840.1.562588.3.579.2 .462 Unknown [id number] 2.840.1.212702.3.579.2 .462 Unknown [id number] 2.16.840.1.082645.3.579.2 .462 Unknown [id number] 2.16.840.1.443829.3.579.2 .462 Unknown [id number] 2.16.840.1.771526.3.579.2 .462 Unknown [id number] 2.16.840.1.959212.3.579.2 .462 Unknown [id number] 2.16.840.1.023964.3.579.2 .462 Unknown [id number] 2.16.840.1.631653.3.579.2 .462 Unknown [id number] 2.16.840.1.516970.3.579.2 .462 Unknown [id number] 2.16.840.1.306593.3.579.2 .462 Unknown [id number] 2.16840.1.116194.3.579.2 .462 Unknown [id number] 2.16840.1.748494.3.579.2 .462 Unknown [id number] 2.16840.1.588784.3.579.2 .462 Social History Date Type Detail Facility Start: 09-25-2018 End: 06-21-2025 Tobacco smoking status NHIS Former smoker [facility] Start: 1945 Sex Assigned At Not on file [facility] Work Phone: Start: 10-08-2019 End: 05-30-2025 Alcohol intake Current non-drinker of alcohol (finding) [facility] [employer] [place] Start: 09-22-2020 End: 09-20-2022 Tobacco use and exposure Never used [facility] Start: 02-03-2022 End: 02-25-2023 Tobacco smoking status MSIS Unknown if ever smoked [facility] Start: 03-04-2021 None [facility] Start: 02-25-2021 Spouse/ Signif icant Other [facility] Start: 03-04-2021 Non-smoker [facility] Start: 1945 Sex Assigned At Male [facility] History of tobacco use Current smoker [facility] Start: 09-20-2022 End: 05-30-2025 History of [address] function [facility] Start: 09-20-2022 End: 05-30-[address] [facility] Gender identity Identifies as ma le gender (finding) [facility] Start: 02-16-2017 End: 05-24-2024 Sex Male (finding) [facility] Medical Equipment Procedure Code Equipment Code Equipment Origin al Text Equipment Identifier Dates TEST BLOOD SUGAR TWICE DAILY Start: 05-28-2024 Goals Date Patient Goal Desired Activity /State Functional Status Date Assessment Result Facility 04-17-2025 Functional status Standby Assist ;With Assist of 1 [facility] Work Phone: 02-27-2023 Functional status Ambulates [facility] Work Phone: 09-25-2018 Are you deaf, or do you have serious difficulty hearing No 09/25/2018 11:12 AM Yasmin Ortiz LPN [facility] 09-25-2018 Are you blind, or do you have serious difficulty seeing, even when wearing glasses No 09/25/2018 11:12 AM Yasmin Ortiz LPN [facility] 09-25-2018 Do you have serious difficulty walking or climbing stairs No 09/25/2018 11:12 AM Yasmin Ortiz LPN [facility] 09-25-2018 Do you have difficul ty dressing or bathing No 09/25/2018 11:12 AM Yasmin Ortiz LPN [facility] 09-25-2018 Because of a physica l, mental, or emotional condition, do you have difficulty doing errands alone such as visiting a physician's office or shopping No 09/25/2018 11:12 AM Yasmin Ortiz LPN [facility] Mental Status Date Assessment Result Facility 06-07-2025 Cognitive function Awake;Alert;A ppropriate;Fol lows Commands [facility] Work Phone: 04-17-2025 Cognitive function Appropriate;Cooperativ e [facility] Work Phone: 04-16-2025 Cognitive function Arousable To Voice/Nam e [facility] Work Phone: 04-04-2025 Cognitive function Awake;Alert;A ppropriate;Fol lows Commands [facility] Work Phone: 02-21-2025 Cognitive function Awake;Alert;A ppropriate;Fol lows Commands [facility] Work Phone: 12-25-2024 Cognitive function Voice/Name [facility] Work Phone: 11-09-2024 Cognitive function Awake;Alert;A ppropriate;Fol lows Commands [facility] Work Phone: 02-24-2024 Cognitive function Voice/Name [facility] Work Phone: 01-13-2024 Cognitive function Awake;Alert;A ppropriate;Fol lows Commands [facility] Work Phone: 11-11-2023 Cognitive function Voice/Name [facility] Work Phone: 09-30-2023 Cognitive function Awake;Alert;A ppropriate;Fol lows Commands [facility] Work Phone: 08-19-2023 Cognitive function Awake;Alert;A ppropriate;Fol lows Commands [facility] Work Phone: 07-08-2023 Cognitive function Awake;Alert;A ppropriate;Fol lows Commands [facility] Work Phone: 05-27-2023 Cognitive function Awake;Alert;A ppropriate;Fol lows Commands [facility] Work Phone: 03-25-2023 Cognitive function Voice/Name [facility] Work Phone: 02-27-2023 Cognitive function Voice/Name [facility] Work Phone: 02-25-2023 Cognitive function Level Of Cons ciousness Awake;Alert;Appropriate [facility] Work Phone: 02-11-2023 Cognitive function Voice/Name [facility] Work Phone: 12-31-2022 Cognitive function Level Of Cons ciousness Awake [facility] Work Phone: 10-08-2022 Cognitive function Voice/Name [facility] Work Phone: 08-27-2022 Cognitive function Level Of Cons ciousness Awake;Alert;Appropriate;Fol lows Commands [facility] Work Phone: 07-16-2022 Cognitive function Voice/Name [facility] Work Phone: 06-04-2022 Cognitive function Level Of Cons ciousness Awake;Alert;Appropriate;Fol lows Commands [facility] Work Phone: 04-09-2022 Cognitive function Level Of Cons ciousness Awake;Alert [facility] Work Phone: 02-12-2022 Cognitive function Awake;Alert;A ppropriate;Fol lows Commands [facility] Work Phone: 12-15-2021 Cognitive function Level Of Cons ciousness Awake;Alert;Appropriate;Fol lows Commands [facility] Work Phone: 10-20-2021 Cognitive function Voice/Name [facility] Work Phone: 09-25-2018 Because of a physica l, mental, or emotional condition, do you have serious difficulty concentrating, remembering, or making decisions No 09/25/2018 11:12 AM Yasmin Ortiz LPN [facility] Clinical Notes 03-23-2021 to 06-21-2025 Note Date & Type Note Facility 06-21-2025 Discharge summary [facility] 06-21-2025 Radiology Diagnostic study note [facility] Imaging Services [address] [place] [place] [address] Abdomen/Pelvis W IV Cont ONLY MR#: [id number] Acct: [id number] Name: YESSI HATCH Rep #: [id number] : 1945 M 79 From: Umair Patterson MD PCP: Dr. Zach Turner MD Status: REG ER Study:Abdomen/Pelvis W IV Cont ONLY Date of E xam: 06/21/25 Exam# [id number] Ordering Dr: Edgar Durham DO PROCEDURE: ABDOMEN/PELVIS W IV CONT ONLY 06/21/2025 REASON FOR EXAM: ABDOMINAL CRAMPING TECHNIQUE: ABDOMEN/PELVIS W IV CONT ONLY Coronal and Sagittal reconstruction series were provided. CONTRAST: 100 cc of Isovue 370 intravenous contrast One or more dose reduction techniques were used (e.g., Automated exposure control, adjustment of the mA and/or kV according to patient size, use of iterative reconstruction technique. RADIATION DOSE SUMMARY: CTDlvol: 35 mGy DLP: 689 mGycm COMPARISON: 07/20/2021 FINDINGS: Lung bases: Hyperinflated. Clear. Liver: Mildly enlarged measuring up to 18.2 cm craniocaudally. Mild diffuse hepatic steatosis. No obvious hepatic mass. Gallbladder: Unremarkable. No biliary ductal dilatation Spleen: Normal size. Pancreas: There is a calcified stone measuring 1.1 x 0.9 cm in the distal main pancreatic duct causing mild proximal dilatation of the main pancreatic duct measuring up to 7 mm. No obvious pancreatic mass visualized. Adrenals: Unremarkable. Kidneys: Normal renal sizes. No hydronephrosis. Left kidney lower pole cyst measures 1.8 x 2.0 x 1.9 cm. Bladder: Unremarkable. Reproductive Organs: Brachytherapy seeds are present. Bowel: Colonic diverticulosis without diverticulitis. Chronic inflammatory changes of the sigmoid colon. No bowel obstruction. Appendix: Normal. Lymph nodes: Unremarkable. Vasculature: The abdominal aorta and IVC are normal. Peritoneum / Retroperitoneum: No free fluid or air. Bones: Degenerative changes of the spine. CT/Abdomen/Pelvis W IV Cont ONLY IMPRESSION: 1. Calcified 1.1 x 0.9 cm stone in the distal main pancreatic duct causing mild dilatation of the proximal main pancreatic duct measuring 7 mm. 2. Left renal cyst measures 2.0 cm. 3. Chronic inflammatory changes of the sigmoid colon. 4. No acute findings in the abdomen or pelvis as imaged. Reading Location: [facility] CC: Dr. Edgar Gudino DO; Dr. Zach Turner MD ~ Program Paraprofessional: Signed [facility] 06-21-2025 Discharge summary Note Date/Time June 21, 2025 7:55pm [facility] Medical Records Department [address] [place] [address] Emergency Department Summary 06/21/25 MR#: [id number] Acct: [id number] Name: YESSI HATCH Rep #:[id number] : 1945 79 From: Edgar guillaume DO PCP: Dr. Zach Turner MD Status:REG ER Location: ED HPI History of Present Illness Chief Complaint: GI Bleed Narrative Narrative: Chief complaint and HPI: Bright red blood per rectum. 79-year-old male with past medical history of atrial fibrillation on Eliquis, DM, arthritis presents for evaluation of bright red blood per rectum. Patient states he has a history of constipation. States he has been constipated for the past 4 days. Has only had boswell soup to help with his constipation. Does not take any bowel regimen. Patient states he had the sensation that he needed to have a bowel movement today. States he sat on the toilet for approximately 1 hour and when she had a bowel movement with bright red blood per rectum. States after that he had multiple episodes of bright red blood per rectum. He endorses abdominal cramping. He denies any fever, chills, shortness of breath, chest pain, nausea,vomiting, dysuria. No history of diverticulosis or colitis. States his last colonoscopy was years ago in [place] that was unremarkable. Review of systems: See HPI Medications: As listed on the chart Allergies: As listed on the chart PFSH: Per chart Vital signs: As listed on the chart. Reviewed. Physical exam: Gen: A&O x3, NAD Head: Normocephalic, atraumatic Eyes: No sclera icterus, conjunctiva clear ENT: Moist mucous membranes Neck: Trachea midline, No JVD CV: RRR, no murmurs, no peripheral edema Resp: Lungs CTA BL, no w/r/c GI: Abd soft, non-distended, mildly tender to palpation in the bilateral lower quadrants, no r/r/g Rectal: Normal external examination. No evidence of hemorrhoids or fissures. Normal tone and sensation. No masses, fluctuance, or tenderness. No pain out of proportion. No stool or blood on gloved finger-mucosa present. Musc: Full ROM, no deformity Skin: Warm, dry Neuro: Alert, oriented, grossly intact, sensation intact Psych: Cooperative, appropriate mood and affect [facility] Medical History Kidney disease GERD (gastroesophageal reflux disease) Former smoker Hypertension Hypertension, well controlled Amputation toe Cataract Glaucoma CPAP (continuous positive airway pressure) dependence Sleep apnea Asthma Atrial fibrillation Nonhealing nonsurgical wound with fat layer exposed Essential hypertension RAJESH (obstructive sleep apnea) Ectopic atrial tachycardia Paroxysmal ventricular tachycardia Premature atrial contractions Cellulitis Psoriasis Arthritis Shortness of breath Hyperlipidemia Hypertension Premature ventricular contraction Supraventricular tachycardia Long-term use of high-risk medication Body mass index 31.0-31.9, adult Diabetes mellitus Secondary pulmonary arterial hypertension Methicillin susceptible Staphylococcus aureus infection Acute osteomyelitis involving ankle and foot Chronic osteomyelitis involving ankle and foot Home Medications ?Medication ?Instructions ?Recorded ?Last Taken ?Type finasteride 5 mg tablet 5 mg PO DAILY prostate 02/0206/21/25 History tamsulosin 0.4 mg capsule 0.4 mg PO QHS prostate 02/0206/20/25 History fluticasone propionate 50 2 spray NASAL DAILY PRN Nasa l 06/30/18 04/15/25 History mcg/actuation nasal Congestion spray,suspension methotrexate sodium 2.5 mg tablet 7.5 mg PO Q7D arthri tis 06/30/18 06/19/25 History pyridoxine (vitamin B6) 50 mg 100 mg PO QHS supplement 06/30/18 06/20/25 History tablet oxybutynin chloride 5 mg 5 mg PO QHS bladder 10/20/18 06/20/25 History tablet,extended release 24 hr folic acid 1 mg tablet 4 mg PO DAILY supplement 04/15/25 History glucosamine HCl 1,500 mg tablet 1,500 mg PO BID supple mt 02/20/20 06/21/25 History infliximab-dyyb 100 mg intravenous 100 mg IV UD psoria tic arthritis 05/30/20 06/07/25 History solution (Inflectra) cyanocobalamin (vitamin B-12) 100 500 mcg PO DAILY sup plement 12/01/20 06/21/25 History mcg tablet cholecalciferol (vitamin D3) 25 25 mcg PO DAILY supple ment 06/20/24 06/21/25 History mcg (1,000 unit) tablet ginkgo biloba leaf extract 60 mg 60 mg PO DAILY 06/21/25 History capsule glipizide 10 mg tablet 10 mg PO DAILY dm 06/20/24 0 04/15/25 History Held on 06/21/25. Instructions: MD Ordered vitamins A,C,U-pwge-mynypm 4,296 1 cap PO QDAY 03/08/2 5 06/21/25 History mcg-226 mg-90 mg capsule (PreserVision AREDS) apixaban 5 mg tablet (Eliquis) 2.5 mg PO BID 04/15/25 06/21/25 History multivitamin (Daily Multi-Vitamin 1 tab PO DAILY 04/1506/21/25 History tablet) L.acidophil,salivari-Bifido 1 cap PO BID 8 weeks #112 caps 04/17/25 06/21/25 Rx bifidum-Strep thermoph 175 mg capsule acetaminophen 325 mg tablet 650 mg (2 x 325 mg) PO Q6H PRN PRN 04/17/25 Unknown Rx Pain 1-10 Or Fever >100.7 #0 tabs pravastatin 40 mg tablet 40 mg PO QHS cholesterol #90 tabs 05/15/25 06/20/25 Rx amlodipine 2.5 mg tablet 2.5 mg PO DAILY 06/21/2507/08 History bimatoprost 0.01 % eye drops 1 drp ophthalmic (eye) DA AMALIA 06/21/25 06/21/25 History (Lumigan) carvedilol 25 mg tablet 25 mg PO BID 06/21/25 History empagliflozin 10 mg tablet 10 mg PO DAILY 06/21/2507/08 History (Jardiance) fluocinolone 0.01 % topical body 1 applic topical BID 06/21/25 06/21/25 History oil Allergy/AdvReac Type Severity Reaction Status Date / Time cephalexin (From Keflex) Allergy Severe rash Verified 06/21/25 15:51 sulfamethoxazole (From Allergy Severe Rash Verified 06/21/25 15:51 Bactrim) trimethoprim (From Bactrim) Allergy Severe Rash Verified 06/21/25 15:51 cefdinir Allergy Mild Abd Verified 06/21/25 15:52 cramps/diarrhea Penicillins Allergy Rash Verified 06/21/25 15:51 doxycycline AdvReac Severe GI upset Verified 06/21/25 15:51 levofloxacin (From Levaquin) AdvReac Other Verified 06/21/25 15:51 Family History Father Cancer Prostate Mother Depression Uncle Myocardial infarction Son CVA (cerebral vascular accident) Surgical History History of bilateral cataract extraction History of foot surgery (~02/2023) excision of skin cancer History of hammer toe correction (09/26/20) History of partial amputation of toe History of hernia repair History of tonsillectomy and adenoidectomy Social History Smoking Status: Former smoker pack-years: 30 alcohol intake: current alcohol intake frequency: holidays/special occasions only substance use type: does not use caffeine: Yes Type: coffee Number of servings: 2 what type of physical activity do you participate in: running and weight training frequency: 1-2 times per week EXAM Physical Exam Const Vital Signs: 06/21/25 15:52 06/21/25 17:51 06/21/25 19:00 Temperature 96.6 F L Temperature Source Temporal Pulse Rate 99 91 Respiratory Rate 18 16 Blood Pressure 175/126 H 150/78 H 146/81 H Blood Pressure Mean 142 102 102 Pulse Ox 99 99 97 Oxygen Delivery Method Room Air Room Air Room Air MDM MDM MDM Narrative Medical decision making narrative: 79-year-old male with past medical history of atrial fibrillation on Eliquis, DM, arthritis presents for evaluation of bright red blood per rectum. Patient states he has a history of constipation. States he has been constipated for thepast 4 days. Patient states he had the sensation that he needed to have a bowel movement today. States he sat on the toilet for approximately 1 hour and when she had a bowel movement with bright red blood per rectum. States after that hehad multiple episodes of bright red blood per rectum. He endorses abdominal cramping. Differential diagnosis includes but is not limited to diverticulosis,diverticulitis, constipation, hemorrhoidal bleeding, electrolyte abnormality, anemia, dysplastic lesion. NS bolus ordered. Patient offered pain medicine butdeclined. GI bleed workup ordered including CT abdomen pelvis. CBC with mild leukocytosis 11.5. No anemia. Hemoglobin 15.7. Platelet count unremarkable. CMP shows CKD with a BUN of 43 and a creatinine of 1.92. In November his BUN was26 his creatinine was 1.92. Patient states he has been eating and drinking well. I spoke with patient as well as his . They state that he is currently seeing a stone derrickman and rigger due to his CKD. They state his last BUN was in the 40s. They do not know what his last creatinine was. Given that his BUN is currently 43 I suspect this is his baseline. Lactic acid unremarkable. Patienthas baseline transaminitis. AST of 55 and ALT of 69. His lipase is 450. Patient not endorsing any right upper quadrant or epigastric abdominal pain. UAis negative for UTI. Patient's stool occult positive. CT abdomen pelvis shows calcified 1.1 x 0.9 cm stone in the distal main pancreatic duct causing mild dilation of the proximal main pancreatic duct measuring 7 mm. This is likely why his lipase is elevated. Left renal cyst. Chronic inflammatory changes of the sigmoid colon. No acute findings on CT abdomen and pelvis. Diverticulosis without diverticulitis. On reevaluation, patient has had no bright red blood per rectum while being here in the emergency department. Again not endorsing any epigastric abdominal pain. States he has been eating and drinking well. Given the findings on CT abdomen pelvis as well as the GI bleed, Dr. Nate Adame was consulted. Patient was discussed. Given that patient is asymptomatic from the elevated lipase as well as the pancreatic stone, no need for any emergent intervention. Recommend following up in his office. Same recommendation for the GI bleed. Patient and his are updated of all the results and the findings. Patient stable to discharge home. Patient was educated return back to the ED if bleeding reoccurs or abdominal pain worsens. He confirmed understanding of plan. Impression: 1. Bright red blood per rectum 2. Incidental pancreatic stone with elevated lipase 3. CKD 4. Mild chronic transaminitis Lab Data Labs: Laboratory Results - last 24 hr 06/21/25 16:45 WBC 11.5 H RBC 4.63 Hgb 15.7 Hct 43.5 MCV 94.0 MCH 33.9 H MCHC 36.1 H RDW Std Deviation 41.9 RDW Coeff of Jaimee 12.7 Plt Count 234 MPV 10.5 Immature Gran % (Auto) 0.300 Neut % (Auto) 84.3 H Lymph % (Auto) 8.8 L [place] % (Auto) 5.6 Eos % (Auto) 0.7 Baso % (Auto) 0.3 Absolute Neuts (auto) 9.7 H Absolute Lymphs (auto) 1.01 Nucleated RBC % 0 Sodium 135 Potassium 4.8 Chloride 101 Carbon Dioxide 19.1 L Anion Gap 15 BUN 43 H Creatinine 1.92 H Estim Creat Clear Calc 33.12 L Est GFR (MDRD) Non-Af 35 L BUN/Creatinine Ratio 22.6 H Glucose 202 H Lactic Acid 1.5 Calcium 11.2 H Total Bilirubin 1.03 AST 55 H ALT 69 H Alkaline Phosphatase 98 Total Protein 8.4 Albumin 4.5 Globulin 3.9 Albumin/Globulin Ratio 1.2 Lipase 450 H Urine Color Yellow Urine Clarity Clear Urine pH 5.0 Ur Specific [place] 1.020 Urine Protein 30 H Urine Glucose (UA) 1000 H Urine Ketones Negative Urine Occult Blood 10 H Urine Nitrite Negative Urine Bilirubin Negative Urine Urobilinogen Normal Ur Leukocyte Esterase Negative Urine RBC 0-5 SEEN Urine WBC 0-5 SEEN Ur Squamous Epith Cells 0-5 SEEN Urine Bacteria 0 SEEN Urine Mucus 0 SEEN Radiography Diagnostic Testing: Clinical Impression(s) from Imaging Studies Abdomen/Pelvis CT 06/21/25 16:22 IMPRESSION: 1. Calcified 1.1 x 0.9 cm stone in the distal main pancreatic duct causing mild dilatation of the proximal main pancreatic duct measuring 7 mm. 2. Left renal cyst measures 2.0 cm. 3. Chronic inflammatory changes of the sigmoid colon. 4. No acute findings in the abdomen or pelvis as imaged. Reading Location: [facility] Discharge Plan Triage Chief Complaint: GI Bleed ED Provider: Edgar Gudino Dx/Rx/DC Orders Prescriptions: No Action Inflectra 100 mg recon soln 100 mg IV UD Patient Comments: IV Rx Instructions: 8 MG/KG, g5yspah glucosamine HCl 1,500 mg tablet 1,500 mg PO BID Rx Instructions: administer with a meal cyanocobalamin (vitamin B-12) 100 mcg tablet 500 mcg PO DAILY glipizide 10 mg tablet 10 mg PO DAILY cholecalciferol (vitamin D3) 25 mcg (1,000 unit) tablet 25 mcg PO DAILY ginkgo biloba leaf extract 60 mg capsule 60 mg PO DAILY Rx Instructions: give with meal/snack PreserVision AREDS 4,296 mcg-226 mg-90 mg capsule 1 cap PO QDAY tamsulosin 0.4 MG capsule 0.4 mg PO QHS finasteride 5 MG tablet 5 mg PO DAILY methotrexate sodium 2.5 MG tablet 7.5 mg PO Q7D pyridoxine (vitamin B6) 50 MG tablet 100 mg PO QHS fluticasone propionate 1 SPRAY spray,suspension 2 spray NASAL DAILY PRN (Reason: Nasal Congestion) folic acid 1 mg tablet 4 mg PO DAILY oxybutynin chloride 5 MG tablet 5 mg PO QHS amlodipine 2.5 mg tablet 2.5 mg PO DAILY carvedilol 25 mg tablet 25 mg PO BID fluocinolone 0.01 % oil 1 applic topical BID Jardiance 10 mg tablet 10 mg PO DAILY Lumigan 0.01 % drops 1 drp ophthalmic (eye) DAILY Eliquis 5 mg tablet 2.5 mg PO BID multivitamin [Daily Multi-Vitamin] Tablet 1 tab PO DAILY L.acidoph,saliva-B.bif-S.therm 175 mg Capsule 1 cap PO BID 56 Days Qty: 112 0RF acetaminophen 325 mg Tablet 650 mg PO Q6H PRN PRN (Reason: Pain 1-10 Or Fever >100.7) Qty: 0 0RF pravastatin 40 mg tablet 40 mg PO QHS Qty: 90 3RF Primary Care Provider: Zach Turner Referrals: Zach Turner MD [Primary Care Provider] - Print Language: Prydeinig What to do if you have Problems For any increased pain, shortness of breath, bleeding, nausea or vomiting, chestpain, or any unexpected problems, contact your Primary Care Provider. Call [facility] ([phone]) or report to the closest Emergency Room. Call 911 if necessary. 06/21/251954 <Electronically signed by Edgar Gudino DO> Cosigner Signature (if applicable): CC: Dr. Zach Turner MD ~ Signed [facility] Work Phone: 1(448) 356-481307-30-2025 History of Present illness Narrative* Georgina Moore MD - 06/12/2025 11:15 AM EDT Images from the original note were not included. DATE OF SERVICE: 06/12/2025 PATIENT NAME: Yessi Hatch : 1945 AGE: 79 y.o. CLINIC NUMBER: [id number] Visit type: Established patient Chief Complaint Patient presents with Skin Lesion EVAN-10/31/2024,ZB Subjective HISTORY OF PRESENT ILLNESS: This is a 79 y.o. male who presents for evaluation of skin lesion; lastseen 10/31/2024. Patient states he is on inflectra infusion for psoriatic arthritis. Pt h/o numerous BCC and SCC. F/u- actinic keratoses located on the Left Forehead, Left Parotid Area, Left Shinto, Left Temporal Scalp, Left Zygomatic Area, Right Forehead, Right Parotid Area, Right Shinto, Right Temporal Scalp, Right Zygomatic Area At this visit patient was treated with efudex to apply to sides of face BID x three weeks. Patient states the one on his left neck has not healed Denies redness, roughness, flaking, itching, bleeding, and tenderness. Patient does believe that the areas have resolved-besides the left neck F/u-stasis derm on left leg. Improved since last visit. Currently treating with: - Triamcinolone 0.1% ointment Denies itching, bleeding, pain. Denies flares Pt. Has been getting severe itching of both of his forearms for a few weeks. He does not see a rash, but the itching is very bothersome and OTC anti-itch lotion does not help for long. History of pacemaker/ defibrillator? No History of HIV/ Hep C? No Allergies to Lidocaine, Epinephrine, Latex or Adhesive? No Review of Systems Orders Placed This Encounter Medications fluocinolone (Carmichael-Smoothe) 0.01 % external oil Sig: Apply to itchy areas of skin at bedtime while skin is damp Dispense: 120 mL Refill: 5 Vitals: 06/12/25 1117 BP: 135/82 Pulse: 82 PHYSICAL EXAM GENERAL APPEARANCE: alert & oriented x3, pleasant. Well developed, well nourished. PSYCH: appropriate mood and affect DERMATOLOGY: (all measurements are in cm, unless otherwise noted) Skin Exam 1. SKIN LESION Left Anterior Neck 2cm round hemorrhagic ulcer of the left neck; no specific findings on dermoscopy []Chronic [x]Acute []Stable [x]Flaring/Exacerbation Lesion of the left neck is an ulcer, but it is unclear if this is the primary lesion or if this is the appearance of the site due to having used fluorouracil. I asked the patient to stop treatment atthe site and return in three weeks so I can assess what sort of lesion might be present and whethera biopsy is needed. 2. PRURITUS (2) Left Arm, Right Arm Sun damage and scattered AK's but no rash noted. []Chronic [x]Acute []Stable [x]Flaring/Exacerbation Educated and reassured. Treatment options, risks, benefits, and expectations reviewed. Start: Dermasmoothe oil to damp skin of upper extremities every day prn itching Follow up in about 8 weeks (around 08/07/2025). Georgina Moore MD 06/12/25 7:49 AM REFERRING MD: documented in this [facility]07-17-2025 History of Present illness Narrative* Christina Cartagena MD - 05/30/2025 11:30 AM EDT DAILY PROGRESS NOTE Admit Date: (Not on file) Date of Evaluation: 1:56 AM [facility] @RRHLOS@ IMPRESSION AND PLAN: 79 y/o male with history of DMII, prostate cancer and HTN is here for CKD care 1) CKD IIIA Cr 1.64 -> 1.70 Urine Na 93 Spot urine pr/cr 0.3 Renal US disclosed no hydronephrosis or shadowing calculus. Left renal cyst. Kerendia is not covered. Will get UA Will get renal panel to ensure stability. Will start jardiance Will consult pharmacy. 2) HTN SBP 110s Continue with lisinopril Continue with metoprolol Continue with Hydrochlorothiazide 3) Chronic normocytic anemia H and H 11.9 -> 14.2 and 33.8 -> 41.3 Will get CBC 4) Hypercalcemia Ca 10.4 Will get immunofixation SUBJECTIVE: Patient seen and examined. Chart, medications, labs reviewed. Appointment on 05/22/2025 Component Date Value Ref Range Status URIC ACID 05/22/2025 7.1 (H) 2.4 - 7.0 MG/DL Final VITAMIN D 25 HYDROXY 05/22/2025 80.5 NG/ML Final Comment: DEFICIENT <20 NG/ML INSUFFICIENT 20-<30 NG/ML SUFFICIENT 30-100 NG/ML POTENTIAL TOXICITY >100 NG/ML PTH INTACT 05/22/2025 34.7 14.5 - 75.2 pg/mL Final Glucose 05/22/2025 154 (H) 70 - 100 MG/DL Final Comment: NORMAL <100 mg/dL PREDIABETES 101-126 mg/dL DIABETES 126 mg/dL or higher BUN 05/22/2025 27 (H) 7 - 20 mg/dL Final CREATININE SERUM 05/22/2025 1.70 (H) 0.70 - 1.20 mg/dL Final SODIUM 05/22/2025 138 137 - 145 MMOL/L Final Potassium 05/22/2025 4.8 3.5 - 5.1 MMOL/L Final CHLORIDE 05/22/2025 103 98 - 107 MMOL/L Final Please note: Triglyceride levels of 600mg/dL or higher may positively bias chloride results by approximately 2.1 mmol CARBON DIOXIDE (CO2) 05/22/2025 27 22 - 30 MMOL/L Final Albumin 05/22/2025 4.6 3.5 - 5.0 g/dL Final CALCIUM 05/22/2025 10.4 (H) 8.4 - 10.2 mg/dL Final PHOSPHORUS 05/22/2025 4.2 2.5 - 4.5 MG/DL Final ESTIMATED GFR 05/22/2025 41 ml/min/1.73sq.m Final GFR COMMENT 05/22/2025 Average GFR for 70+ years old = 75. Final Comment: Chronic Kidney disease, GFR = <60. Kidney failure, GFR = <15. The GFR estimate is not adjusted for extreme body surface area or acute process, nor has it been validated for women or ethnic groups other than and . MAGNESIUM 05/22/2025 2.2 1.6 - 2.3 MG/DL Final WBC (WHITE BLOOD COUNT) 05/22/2025 7.2 3.6 - 11.0 10*3/uL Final RBC 05/22/2025 4.28 4.0 - 6.1 10*6/uL Final HEMOGLOBIN (HGB) 05/22/2025 14.2 14.0 - 18.0 G/DL Final HEMATOCRIT (HCT) 05/22/2025 41.3 (L) 42.0 - 52.0 % Final Mean Cell Volume 05/22/2025 96.6 80.0 - 100.0 FL Final Mean Cell HGB 05/22/2025 33.2 26.0 - 35.0 PG Final Mean Cell HGB Concentration 05/22/2025 34.3 27.0 - 37.0 G/DL Final RBC Distribution 05/22/2025 13.7 11.5 - 14.5 % Final PLATELET COUNT 05/22/2025 283 130 - 400 10*3/uL Final Mean Platelet Volume 05/22/2025 8.6 7.4 - 11.0 FL Final DIFFERENTIAL TYPE 05/22/2025 AUTO DIFF % Final NEUTROPHILS 05/22/2025 47.1 37.0 - 75.0 % Final LYMPHOCYTE 05/22/2025 21.2 20.0 - 55.0 % Final MONOCYTE % 05/22/2025 10.0 0.0 - 10.0 % Final EOSINOPHIL % 05/22/2025 19.1 (H) 0.0 - 11.0 % Final BASOPHIL % 05/22/2025 2.6 (H) 0.0 - 2.0 % Final Absolute Neutrophil Count 05/22/2025 3.4 1.4 - 6.5 10*3/uL Final LYMPHOCYTES, ABSOLUTE 05/22/2025 1.5 1.2 - 3.4 10*3/uL Final MONOCYTES, ABSOLUTE 05/22/2025 0.7 0.0 - 0.7 10*3/uL Final ABSOLUTE EOSINOPHIL COUNT 05/22/2025 1.4 (H) 0.0 - 0.7 10*3/uL Final ABSOLUTE BASOPHIL COUNT 05/22/2025 0.2 0.0 - 0.2 10*3/uL Final CREATININE, MG/DL, URINE 05/22/2025 48.4 MG/DL Final NO NORMAL VALUES ESTABLISHED FOR RANDOM SPECIMENS Microalbumin, Urine, Random 05/22/2025 45.5 (H) 0.0 - 16.7 mg/L Final MICROALBUMIN/CREATININE RATIO 05/22/2025 94.0 (H) 1.3 - 30.0 mg MALB/g CREAT Final WBC, Urine 05/22/2025 NEGATIVE NEGATIVE /HPF Final RBC, Urine 05/22/2025 NEGATIVE NEGATIVE /HPF Final Epithelial Cells UA 05/22/2025 NONE /HPF Final Mucus 05/22/2025 NEGATIVE NEGATIVE Final Bacteria, Urine 05/22/2025 1+ (A) NEGATIVE Final CRYSTALS, URINE 05/22/2025 NONE NONE Final CASTS, URINE 05/22/2025 NONE NONE /LPF Final COMMENT, URINE 05/22/2025 CULTURE CRITERIA NOT MET, NO CULTURE PERFORMED. Final PROTEIN MG/DL-URINE 05/22/2025 16 (H) 0 - 12 MG/DL Final CREATININE, MG/DL, URINE 05/22/2025 48.4 MG/DL Final NO NORMAL VALUES ESTABLISHED FOR RANDOM SPECIMENS PROTEIN/CREAT RATIO, URINE 05/22/2025 0.3 Final Comment: REFERENCE RANGES <0.2 NORMAL 0.2-3.5 NON-NEPHROTIC >3.5 NEPHROTIC SODIUM, URINE RANDOM 05/22/2025 93 (H) 30 - 90 mmol/L Final Color, Urine 05/22/2025 YELLOW YELLOW Final Appearance, Urine 05/22/2025 CLEAR CLEAR Final Specific [place], Urine 05/22/2025 1.015 1.010 - 1.025 Final PH URINE 05/22/2025 6.0 5.0 - 7.0 Final Urine Protein 05/22/2025 NEGATIVE NEGATIVE mg/dl Final Glucose, Urine 05/22/2025 NEGATIVE NEGATIVE mg/dl Final Ketones, Urine 05/22/2025 NEGATIVE NEGATIVE mg/dl Final BILIRUBIN, URINE 05/22/2025 NEGATIVE NEGATIVE Final BLOOD, URINE DIPSTICK 05/22/2025 NEGATIVE NEGATIVE Final Nitrites, Urine 05/22/2025 NEGATIVE NEGATIVE Final Urobilinogen, Urine 05/22/2025 0.2 0.2 - 1.0 E.U./dL Final Leukocyte esterase, Urine 05/22/2025 NEGATIVE NEGATIVE Final LABS Labs-ABGs @ABGROUNDS@ Labs-CBC @CBCBRIEFROUNDS@ Labs-Chem 7([facility]) @[facility]@ Labs-Coags WBC (WHITE BLOOD COUNT) Date Value Ref Range Status 05/22/2025 7.2 3.6 - 11.0 10*3/uL Final 10/08/2019 7.5 3.6 - 11.0 10*3/uL Final 09/25/2018 8.2 3.6 - 11.0 /cmm Final HEMOGLOBIN (HGB) Date Value Ref Range Status 05/22/2025 14.2 14.0 - 18.0 G/DL Final 10/08/2019 13.8 (L) 14.0 - 18.0 G/DL Final 09/25/2018 14.0 14.0 - 18.0 G/DL Final HEMATOCRIT (HCT) Date Value Ref Range Status 05/22/2025 41.3 (L) 42.0 - 52.0 % Final 10/08/2019 41.3 (L) 42.0 - 52.0 % Final 09/25/2018 41.4 (L) 42.0 - 52.0 % Final PLATELET COUNT Date Value Ref Range Status 05/22/2025 283 130 - 400 10*3/uL Final 10/08/2019 215 130.0 - 400.0 10*3/uL Final 09/25/2018 272 130.0 - 400.0 /cmm Final SODIUM Date Value Ref Range Status 05/22/2025 138 137 - 145 MMOL/L Final CHLORIDE Date Value Ref Range Status 05/22/2025 103 98 - 107 MMOL/L Final Comment: Please note: Triglyceride levels of 600mg/dL or higher may positively bias chloride results by approximately 2.1 mmol BUN Date Value Ref Range Status 05/22/2025 27 (H) 7 - 20 mg/dL Final Potassium Date Value Ref Range Status 05/22/2025 4.8 3.5 - 5.1 MMOL/L Final CREATININE SERUM Date Value Ref Range Status 05/22/2025 1.70 (H) 0.70 - 1.20 mg/dL Final 10/08/2019 0.98 0.66 - 1.25 MG/DL Final 09/25/2018 1.2 0.66 - 1.25 MG/DL Final Glucose Date Value Ref Range Status 05/22/2025 154 (H) 70 - 100 MG/DL Final Comment: NORMAL <100 mg/dL PREDIABETES 101-126 mg/dL DIABETES 126 mg/dL or higher Albumin Date Value Ref Range Status 05/22/2025 4.6 3.5 - 5.0 g/dL Final AST Date Value Ref Range Status 10/08/2019 31 15 - 41 IU/L Final 09/25/2018 34 15 - 41 IU/L Final 06/01/2017 44 (H) 8 - 20 IU/L Final ALT Date Value Ref Range Status 10/08/2019 40 17 - 63 IU/L Final 09/25/2018 39 17 - 63 IU/L Final 06/01/2017 63 (H) 10 - 40 IU/L Final CALCIUM Date Value Ref Range Status 05/22/2025 10.4 (H) 8.4 - 10.2 mg/dL Final PHOSPHORUS Date Value Ref Range Status 05/22/2025 4.2 2.5 - 4.5 MG/DL Final MAGNESIUM Date Value Ref Range Status 05/22/2025 2.2 1.6 - 2.3 MG/DL Final Lab Results Component Value Date CREATURINE 48.4 05/22/2025 CREATURINE 48.4 05/22/2025 CREATSERUM 1.70 (H) 05/22/2025 BUN 27 (H) 05/22/2025 SODIUM 138 05/22/2025 POTASSIUM 4.8 05/22/2025 CHLORIDE 103 05/22/2025 CO2 27 05/22/2025 ROS: Constitution: No fever, no chill HEENT: No headache, no sinus issues CV: No chest pain, no palpitation Lung: No cough, No SOB Abd: No diarrhea, no constipation Neuro: No seizure, no loss of consciousness Heme: No bleeding, no bruise PHYSICAL EXAM: Wt Readings from Last 3 Encounters: 05/30/25 85.9 kg (189 lb 4.8 oz) 02/28/25 82.4 kg (181 lb 9.6 oz) 01/25/25 84.8 kg (187 lb) Temp Readings from Last 3 Encounters: 10/26/23 98.7 F (37.1 C) (Temporal) 07/04/23 97.8 F (36.6 C) (Temporal) 09/20/22 98 F (36.7 C) (Temporal) BP Readings from Last 3 Encounters: 05/30/25 110/76 02/28/25 110/58 01/25/25 110/60 Pulse Readings from Last 3 Encounters: 05/30/25 71 05/07/24 83 09/20/22 70 Gen: NAD, lying in bed, conversant HEENT: Atraumatic, PERRLA, moist membrane CV: RRR, nl S1 and S2, no m/g/r Lung: CTAB, no wheezing, no crackle Abd: +BS, nontender, no distended Ext: No rash, no clubbing, no cyanosis. No edema. Neuro: CNII-XII grossly intact, 5/5 strength, normal tone Skin: Warm and dry [facility] NotePROCEDURE: US RENAL RETROPERITONEAL HISTORY: Chronic kidney disease. TECHNIQUE: A renal ultrasound was performed. COMPARISON: None MEASUREMENTS: Right renal length: 11.0 cm Left renal length: 10.3 cm RENAL FINDINGS: There is preserved renal echogenicity and cortical thickness. No hydronephrosis or shadowing calculus is identified. There is a simple-appearing cyst within the interpole left kidney measuring 2.0 x 1.6 x 1.6 cm. BLADDER: The bladder is mildly distended and grossly unremarkable. Bilateral urinary jets noted. IMPRESSION: 1. No hydronephrosis or shadowing calculus. 2. Left renal cyst.[facility]06-04-2025 Consult note Author Patrick Rojas [facility] Note Date/Time April 17, 2025 12:53 pm [facility] Medical Records Department [address] [place] [address] Consultation 04/16/25 1225 MR#: [id number] Acct: [id number] Name: YESSI HATCH Rep #:[id number] : [id number] 79 From: Patrick Rojas DPM PCP: Dr. Zach Turner MD Status:ADM IN Location: MS3 [id number] Assessment & Plan Assessment/Plan (1) Cellulitis of left foot: (2) Non-pressure chronic ulcer of other part of left foot with fat layer exposed: PLAN: Reviewed findings with patient. Awaiting MRI results. Likely osteomyelitis is going to be noted but it is encouraging that there is no purulence deep within the wound. It is difficult to fully assess if the fracture was secondary to chronic osteomyelitis or just simple injury. The portion of the middle phalanx remains and osteomyelitis is present. Osteomyelitis which is chronic is also seen to the head of the third digit. The patient had been treated with conservative care with his wounds secondary tocomorbidities and intolerance to many medications. We did discuss amputation ofthe left fourth toe and risks and complications associated with that. No guarantees were given. Patient understands possibility of another long-term wound. And he will discuss this with his . Podiatry will continue to follow and review this again with the patient tomorrow. Continue with local wound care and I did discuss this with Jacqueline Del Rio. (3) Diabetes mellitus with diabetic polyneuropathy: HPI Consult Data Date of Consult: 04/17/25 HPI Narrative Reason for Consultation: Ulceration of toe HPI Narrative: YESSI HATCH, is a 79 M who presents complaining of ulceration with cellulitis to the left fourth toe. The patient is known to me from my private office where he has been treated for many ulcerations of bilateral feet. In 2022, the left hallux was amputated and the patient had very slow healing which took over a year. He had local wound care as well as Apligraf. Multiple courses of antibiotics. The patient is complicated secondary to lymphedema, immunosuppressive therapy, methotrexate, etc. When the lesser toes, which many of them had partial amputations performed by other physicians, had opened up periodically with ulcerations, he prefers conservative therapy. The patient does not tolerate many antibiotics secondary to renal status as well as chronic diarrhea. The patient presented to [facility] emergency department secondary to swollen toe which did not seem to get better. [facility] Medical History Kidney disease GERD (gastroesophageal reflux disease) Former smoker Hypertension Hypertension, well controlled Amputation toe Cataract Glaucoma CPAP (continuous positive airway pressure) dependence Sleep apnea Asthma Atrial fibrillation Nonhealing nonsurgical wound with fat layer exposed Essential hypertension RAJESH (obstructive sleep apnea) Ectopic atrial tachycardia Paroxysmal ventricular tachycardia Premature atrial contractions Cellulitis Psoriasis Arthritis Shortness of breath Hyperlipidemia Hypertension Premature ventricular contraction Supraventricular tachycardia Long-term use of high-risk medication Body mass index 31.0-31.9, adult Diabetes mellitus Secondary pulmonary arterial hypertension Methicillin susceptible Staphylococcus aureus infection Acute osteomyelitis involving ankle and foot Chronic osteomyelitis involving ankle and foot Home Medications ?Medication ?Instructions ?Recorded ?Last Taken ?Type finasteride 5 mg tablet 5 mg PO DAILY prostate 02/0204/15/25 History tamsulosin 0.4 mg capsule 0.4 mg PO QHS prostate 02/0204/14/25 History fluticasone propionate 50 2 spray NASAL DAILY PRN Nasa l 06/30/18 04/15/25 History mcg/actuation nasal Congestion spray,suspension methotrexate sodium 2.5 mg tablet 7.5 mg PO Q7D arthri tis 06/30/18 04/10/25 History pyridoxine (vitamin B6) 50 mg 100 mg PO QHS supplement 06/30/18 04/14/25 History tablet multivitamin with folic acid 400 1 tab PO DAILY supple ment 10/20/18 04/15/25 History mcg tablet oxybutynin chloride 5 mg 5 mg PO QHS bladder 10/20/18 04/14/25 History tablet,extended release 24 hr folic acid 1 mg tablet 4 mg PO DAILY supplement 04/15/25 History glucosamine HCl 1,500 mg tablet 1,500 mg PO BID supple mt 02/20/20 04/15/25 History infliximab-dyyb 100 mg intravenous 100 mg IV UD psoria tic arthritis 05/30/20 04/08/25 History solution (Inflectra) cyanocobalamin (vitamin B-12) 100 500 mcg PO DAILY sup plement 12/01/20 04/15/25 History mcg tablet amlodipine 2.5 mg tablet 2.5 mg PO DAILY #90 tabs 04/15/25 Rx metoprolol succinate 100 mg 100 mg PO BID bp/heart #18 0 tabs 04/10/24 04/15/25 Rx tablet,extended release 24 hr pravastatin 40 mg tablet 40 mg PO QHS cholesterol #90 tabs 04/10/24 04/14/25 Rx cholecalciferol (vitamin D3) 25 25 mcg PO DAILY supple ment 06/20/24 04/13/25 History mcg (1,000 unit) tablet ginkgo biloba leaf extract 60 mg 60 mg PO DAILY 04/15/25 History capsule glipizide 10 mg tablet 10 mg PO DAILY dm 06/20/24 0 04/15/25 History lisinopril 40 mg tablet 40 mg PO DAILY #90 tabs 01/0804/15/25 Rx furosemide 20 mg tablet (Lasix) 20 mg PO DAILY PRN tanner ma 03/08/25 04/12/25 History hydrochlorothiazide 12.5 mg capsule 12.5 mg PO QDAY 04/15/25 History vitamins A,C,Q-tazx-svmbzu 4,296 1 cap PO QDAY 5 04/15/25 History mcg-226 mg-90 mg capsule (PreserVision AREDS) apixaban 5 mg tablet (Eliquis) 5 mg PO BID 04/15/25 History doxycycline hyclate 100 mg capsule 100 mg PO Q12H 01/0804/15/25 History lactulose 10 gram/15 mL oral 15 ml PO QHS 04/15/25 History solution (Enulose) multivitamin (Daily Multi-Vitamin 1 tab PO DAILY 04/1504/15/25 History tablet) Allergy/AdvReac Type Severity Reaction Status Date / Time cephalexin (From Keflex) Allergy Severe rash Verified 04/04/25 10:13 sulfamethoxazole (From Allergy Severe Rash Verified 04/04/25 10:13 Bactrim) trimethoprim (From Bactrim) Allergy Severe Rash Verified 04/04/25 10:13 Penicillins Allergy Rash Verified 04/04/25 10:13 doxycycline AdvReac Severe GI upset Verified 04/04/25 10:13 levofloxacin (From Levaquin) AdvReac Other Verified 04/04/25 10:13 Family History Father Cancer Prostate Mother Depression Uncle Myocardial infarction Son CVA (cerebral vascular accident) Surgical History History of bilateral cataract extraction History of foot surgery (~02/2023) excision of skin cancer History of hammer toe correction (09/26/20) History of partial amputation of toe History of hernia repair History of tonsillectomy and adenoidectomy Social History Smoking Status: Former smoker pack-years: 30 alcohol intake: current alcohol intake frequency: holidays/special occasions only substance use type: does not use caffeine: Yes Type: coffee Number of servings: 2 what type of physical activity do you participate in: running and weight training frequency: 1-2 times per week Physical Exam Narrative Patient was resting comfortably in bed getting ready to order lunch. MRI had just been performed. Const alert, oriented x3 and no apparent distress Extremity Extremity Narrative: +2 edema is noted to bilateral lower extremities which is baseline for the patient. He has had compressive therapy in the past but is not particularly compliant. Peripheral Pulses: Yes posterior tibial pulses present bilateral (Pulses can be difficult to locate secondary to the lymphedema.) and dorsalis pedis pulses present Right Lower Extremity: foot and digits Positive for inspection (Recent radiographs show the head of the proximal phalanx of the left fourth digit is fractured. It has shifted since previous radiographs in middle of March 2024. This is likely the cause of the hematoma that was expelled.) and other (Many digits have been partially amputated secondary to many diabetic foot ulcerations.) Left Lower Extremity: foot and digits Positive for other (Many digits have been partially amputated secondary to many diabetic foot ulcerations. Left hallux was amputated in 2022.) Skin Wounds: wounds noted open Wound Narrative: Small wound noted to the dorsal left 4th toe with granular base. There was a mild amount of minimal scabbing over top which was sharply debrided bedside. The area was squeezed and then a large gelatinous hematoma was expelled. There was no purulence. There was no malodor. No pieces of bone were expelled. Wound measures approximately 0.6 x 0.9 x 1.6 cm. Neuro Neuro Narrative: Peripheral neuropathy is noted and significant. Lab / Micro Data 04/17/25 06:50 04/17/25 06:50 Labs: Laboratory Results - last 24 hr 04/15/25 15:55: WBC 5.9, RBC 3.22 L, Hgb 11.4 L, Hct 32.5 L, MCV 100.9 H, MCH 35.4 H, MCHC 35.1, RDW Std Deviation 51.8 H, RDW Coeff of Jaimee 14.3, Plt Count 200, MPV 10.8, Immature Gran % (Auto) 0.300, Neut % (Auto) 59.2, Lymph % (Auto) 21.9, [place] % (Auto) 12.1 H, Eos % (Auto) 5.6 H, Baso % (Auto) 0.9, Absolute Neuts (auto) 3.5, Absolute Lymphs (auto) 1.28, Nucleated RBC % 0, ESR 21 H, Sodium 139, Potassium 3.9, Chloride 103, Carbon Dioxide 24.3, Anion Gap 12, BUN 26 H, Creatinine 1.38 H, Estim Creat Clear Calc 46.08 L, Est GFR (MDRD) Non-Af 51 L, BUN/Creatinine Ratio 19.1, Glucose 183 H, Lactic Acid 1.6, Calcium 9.4, C-React Prot Ext Range 30.20 H 04/15/25 18:56: ESR 10, C-React Prot Ext Range 30.60 H 04/15/25 21:10: POC Glucose 117 H 04/16/25 05:34: WBC 4.7, RBC 2.90 L, Hgb 10.2 L, Hct 29.2 L, MCV 100.7 H, MCH 35.2 H, MCHC 34.9, RDW Std Deviation 52.0 H, RDW Coeff of Jaimee 14.5, Plt Count 174, MPV 10.8, Immature Gran % (Auto) 0.200, Neut % (Auto) 52.4, Lymph % (Auto) 28.7, [place] % (Auto) 12.2 H, Eos % (Auto) 5.6 H, Baso % (Auto) 0.9, Absolute Neuts (auto) 2.5, Absolute Lymphs (auto) 1.34, Nucleated RBC % 0, Sodium 140, Potassium 3.7, Chloride 107, Carbon Dioxide 23.9, Anion Gap 9, BUN 24 H, Creatinine 1.28 H, Estim Creat Clear Calc 49.68 L, Est GFR (MDRD) Non-Af 56 L, BUN/Creatinine Ratio 18.4, Glucose 183 H, Hemoglobin A1c 7.0 H, Calcium 9.1, Phosphorus 3.0, Magnesium 1.9 04/16/25 06:09: POC Glucose 159 H Micro: Microbiology 04/15/25 20:30 Wound - Toe Gram Stain - Final 04/15/25 20:30 Wound - Toe Wound Culture - Preliminary Gram positive organism 04/15/25 18:00 Wound - Toe Skin and Soft Tissue MRSA/MSSA (PCR - Final Staphylococcus aureus Imaging Radiology Impression Foot X-Ray 04/15/25 16:13 IMPRESSION: 1. Similar appearance of the left foot compared to radiographs on 03/27/2025, including amputation and soft tissue swelling involving multiple toes. Consider bone scan or MRI if there is concern for osteomyelitis. 2. Mildly displaced fracture of the 4th proximal phalanx. Reading Location: [id number] 04/17/25 1253 <Electronically signed by Patrick Rojas DPM> Cosigner Signature (if applicable): CC: Dr. Zach Turner MD~ Signed [facility] Work Phone: 1(611) 281-447506-04-2025 Progress note Author Patrick Rojas [facility] Note Date/Time April 17, 2025 12:53 pm [facility] Medical Records Department [address] [place] [address] Progress Note 04/17/25 1245 MR#: [id number] Acct: [id number] Name: YESSI HATCH Rep #:[id number] : 1945 79 From: Patrick Rojas DPM PCP: Dr. Zach Turner MD Status:ADM IN [place] [facility] [id number] Subjective Subjective Patient was resting comfortably in bed while eating lunch. He states he is feeling well and he is hopeful to go home soon. He has been thinking about whatwe talked about yesterday and is not exactly sure which route he would like to go. He has a few more questions today. Objective Data Objective Data Dressing was intact recently from wound care nurse and there is scant serosanguineous drainage. Vital Signs: Vital Signs Temp Pulse Resp BP Pulse Ox O2 Del Method O2 Flow Rate 97.4 F L 80 16 139/84 H 94 Room Air 2 04/17/25 08:15 04/17/25 08:39 04/17/25 08:15 04/17/25 08:15 04/17/25 08:58 04/17/25 08:58 04/16/25 19:54 Oxygen Flow Rate (L/min) 2 Oxygen Delivery Method Room Air Weight: 89.5 kg Body Mass Index (BMI) 26.7 Intake & Output: Intake and Output for Last 24 Hours 04/15/25 04/16/25 04/17/25 23:59 23:59 23:59 Intake Total 660.00 / 660.00 3300.25 / 3300.25 1324.75 / 1324.75 Output Total 300 / 300 Balance 660.00 / 660.00 3000.25 / 3000.25 1324.75 / 1324.75 Lab / Micro Data 04/17/25 06:50 04/17/25 06:50 Labs: Laboratory Results - last 24 hr 04/16/25 12:25: POC Glucose 166 H 04/16/25 16:51: POC Glucose 181 H 04/16/25 22:47: POC Glucose 161 H 04/17/25 06:03: POC Glucose 122 H 04/17/25 06:50: WBC 7.9, RBC 3.72 L, Hgb 12.6 L, Hct 37.1 L, MCV 99.7 H, MCH 33.9 H, MCHC 34.0, RDW Std Deviation 52.2 H, RDW Coeff of Jaimee 14.6, Plt Count 207, MPV 10.4, Immature Gran % (Auto) 0.500, Neut % (Auto) 70.3 H, Lymph % (Auto) 15.0 L, [place] % (Auto) 8.9, Eos % (Auto) 4.8, Baso % (Auto) 0.5, Absolute Neuts (auto) 5.5, Absolute Lymphs (auto) 1.18, Nucleated RBC % 0, Sodium 140, Potassium 4.4, Chloride 106, Carbon Dioxide 21.9, Anion Gap 13, BUN 20 H, Creatinine 1.19, Estim Creat Clear Calc 53.44, Est GFR (MDRD) Non-Af 61, BUN/Creatinine Ratio 16.8, Glucose 171 H, Calcium 9.5, Vancomycin Trough 12.9 04/17/25 11:21: POC Glucose 174 H Micro: Microbiology 04/15/25 20:30 Wound - Toe Gram Stain - Final 04/15/25 20:30 Wound - Toe Wound Culture - Preliminary Staphylococcus aureus 04/15/25 20:30 Wound - Toe Anaerobic Culture - Preliminary Checking for anaerobes, further studies to follow. 04/15/25 18:00 Wound - Toe Skin and Soft Tissue MRSA/MSSA (PCR - Final Staphylococcus aureus Physical Exam Narrative Clinically great improvement is seen and still awaiting the MRI report. Skin Wounds: wounds noted Wound Narrative: Left fourth toe dorsally has open wound with 100% granular base. There is scantserosanguineous drainage. Erythema has greatly improved from yesterday and is mainly at the distal aspect of the toenail. Edema has also greatly improved andpeeling skin surrounding the toe and the proximal portion of the lesser toes would be consistent with decreased edema. Minimal packing with gauze was noticed. Assessment & Plan Assessment/Plan (1) Non-pressure chronic ulcer of other part of left foot with necrosis of bone: PLAN: Reviewed findings with patient. Even though we are still awaiting the official report from the MRI, we did discuss that it is likely the toe is suffering from osteomyelitis. Treatment options were reviewed in detail which would include medical managementwith antibiotics as directed and managed by infectious disease. Risks and complications associated with this treatment option were reviewed in detail. The patient often does not tolerate antibiotics as he states he gets diarrhea quite often. He understands that he must take the antibiotics as directed by infectious disease and he cannot skip days when he is feeling badly. It is important and must be taken in an effort to help quiet the acute osteomyelitis and turn it to chronic. No guarantees were given with this. The other treatment option is for the fourth toe amputation. The patient was educated that it would be amputated at the metatarsal phalangeal joint. The last amputation the patient had undergone for the left hallux resulted in over ayear of slow healing with an open wound. Patient is concerned about that being a result and it is very possible. He is on immunosuppressive therapy. The patient states at this point he prefers to treat this with conservative therapy and antibiotic management. If this does not work, he can always choose to have the toe amputated and this could be done on an outpatient basis. This was reviewed in detail with the patient. He feels that is the option that he would like to move forward with. Risks, complications, alternative treatments were reviewed in detail and no guarantees were given. Patient understands possibility of failure of treatment resulting in further need for surgery. All questions were answered today. The patient may be discharged from a podiatric standpoint and continue to followin my office for wound care management. Surgery may be performed on an outpatient basis if needed. Dressing was reapplied today. Podiatry will follow on an outpatient basis as needed. (2) Cellulitis of left lower limb: 04/17/25 1253 <Electronically signed by Patrick Rojas DPM> Patrick Rojas DPM Cosigner Signature (if applicable): CC: ~ Signed [facility] Work Phone: 1([phone]) 820-567406-04-2025 Discharge summary [facility] Medical Records Department [address] [place] [address] Discharge Summary 04/17/25 1340 MR#: [id number] Acct: [id number] Name: YESSI HATCH Rep #:[id number] : 1945 79 From: Coco Pepe MD PCP: Dr. Zach Turner MD Status:ADM IN [place] [facility] [id number] Date of Admission: 04/15/25 Date of Discharge: 04/17/25 Primary Care Physician: Dr. Zach Turner MD Consultations 04/15/25 18:28 Consult: Infectious Disease Routine Consulting Provider: Latonia Berry Reason for Consult: DFU EMERGENT Consult: No Notified: Yes Date Notified: 04/16/25 Time Notified: 06:37 Method of Notification: Text Consult: Onc/Wound/hand therapist Routine Comment: Reason for Consult:: skin tear also on right Arm Consult: Podiatry Routine Consulting Provider: Patrick Rojas Reason for Consult: DFU EMERGENT Consult: No Notified: Yes Date Notified: 04/15/25 Time Notified: 18:39 Method of Notification: Verbal Reason For Visit: CELLULITIS Diagnosis Discharge Diagnosis (1) Chronic kidney disease: Status: Chronic Code(s): N18.9 - Chronic kidney disease, unspecified Qualifiers: Chronic kidney disease stage: stage 3 (moderate) Chronic kidney diseasestage 3 subtype: stage 3b (GFR 30-44) Qualified Code(s): N18.32 - Chronic kidney disease, stage 3b (2) Diabetes mellitus with diabetic polyneuropathy: Status: Acute Code(s): E11.42 - Type 2 diabetes mellitus with diabetic polyneuropathy (3) Diabetic infection of left foot: Status: Acute Code(s): E11.628 - Type 2 diabetes mellitus with other skin complications; L08.9 - Local infection of the skin and subcutaneous tissue, unspecified Plan Patient is an 79-year-old gentleman presenting with erythema swelling and warmthinvolving the left foot 1. Diabetic foot infection involving the left foot. Patient has previous history of osteomyelitis with previous amputation of the phalanges at the metatarsophalangeal joint of the great toe, and at the proximalinterphalangeal joints of the 3rd and 4thtoes. Imaging studies obtained demonstrated soft tissue swelling involving multiple toes was however nonconclusive for osteomyelitis. Patient has been admitted to regular nursing floor started on broad-spectrum antibiotic therapy with meropenem and vancomycin. Ordered MRI to rule out osteomyelitis.Also ordered hemoglobin A1cESR as well as CRP ? 04/16/2025; scheduled to undergo MRI to rule out ? 04/17/2025;Patient underwent MRI of the left lower extremity results still pending. Patient was seen in consultation by both Dr. Thornton with podiatry and Dr. Berry with ID notes and recommendationsreviewed ? ID recommended for patient to be discharged with 6 weeks of p.o. cefdinir for MSSA 2. 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 Held patient oral agents. Started patient on long-acting insulin in addition to Accu-Cheks AC andat bedtime with sliding scale coverage. Patient was also placed on 1800 ADA diet ? 04/16/2025; patient blood glucose levels remain controlled we will continue withcurrent treatment regimen 3. Paroxysmal A-fib ? Patient heart rate was relatively low. Will place patient on continuous telemetry monitoring. Patient is on metoprolol 100 mg twice daily will hold forheart rate less than 50 and blood pressure less than 100. Patient is on systemic anticoagulation apixaban did continue 4. Chronic kidney disease stage III ? Avoided nephrotoxic medications. Patient is on furosemide Lasix as well as HCTZ held ? 04/17/2025; patient kidney function did improve after potential nephrotoxic medications held we will continue with daily monitoring BMP 5. Essential hypertension ? Patient antihypertensives adjusted as above ordered hydralazine for systolic blood pressure greater than 160 ? Patient was on lisinopril and HCTZ discontinued given his impaired kidney function new prescription written for amlodipine 10 mg daily as well as hydralazine 25 mg p.o. twice daily patient instructed to follow-up with primary care physician in 2 weeks for adjustment of medication therapy if needed 6. Obstructive sleep apnea ? Consistent use of PAP therapy encouraged 7. 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 Patient is on methotrexate as well as infliximab held in view of patient infection 8. BPH with lower urinary obstructive symptoms - Patient treated with tamsulosin 9. Anemia ? Secondary to chronic disorder monitoring H&H and transfuse if patient becomes symptomatic or hemoglobin falls below 7 10. DVT prophylaxis ? Patient is on apixaban no need for additional measures Medications at Discharge Home Medications finasteride 5 mg tablet 5 mg PO DAILY prostate 02/03/16 tamsulosin 0.4 mg capsule 0.4 mg PO QHS prostate 02/03/16 fluticasone propionate 50 mcg/actuation nasal spray,suspension 2 spray NASAL DAILY PRN Nasal Congestion 06/30/18 methotrexate sodium 2.5 mg tablet 7.5 mg PO Q7D arthritis 06/30/18 pyridoxine (vitamin B6) 50 mg tablet 100 mg PO QHS supplement 06/30/18 multivitamin with folic acid 400 mcg tablet 1 tab PO DAILY supplement 10/20/18 oxybutynin chloride 5 mg tablet,extended release 24 hr 5 mg PO QHS bladder 10/20/18 folic acid 1 mg tablet 4 mg PO DAILY supplement 06/01/19 glucosamine HCl 1,500 mg tablet 1,500 mg PO BID supplemt 02/20/20 infliximab-dyyb 100 mg intravenous solution (Inflectra) 100 mg IV UD psoriatic arthritis 05/30/20 cyanocobalamin (vitamin B-12) 100 mcg tablet 500 mcg PO DAILY supplement 12/01/20 metoprolol succinate 100 mg tablet,extended release 24 hr 100 mg PO BID bp/heart#180 tabs 04/10/24 pravastatin 40 mg tablet 40 mg PO QHS cholesterol #90 tabs 04/10/24 cholecalciferol (vitamin D3) 25 mcg (1,000 unit) tablet 25 mcg PO DAILY supplement 06/20/24 ginkgo biloba leaf extract 60 mg capsule 60 mg PO DAILY 06/20/24 glipizide 10 mg tablet 10 mg PO DAILY dm 06/20/24 furosemide 20 mg tablet (Lasix) 20 mg PO DAILY PRN edema 03/08/25 vitamins A,C,P-gfwm-rnhxun 4,296 mcg-226 mg-90 mg capsule (PreserVision AREDS) 1cap PO QDAY 03/08/25 apixaban 5 mg tablet (Eliquis) 5 mg PO BID 04/15/25 lactulose 10 gram/15 mL oral solution (Enulose) 15 ml PO QHS 04/15/25 multivitamin (Daily Multi-Vitamin tablet) 1 tab PO DAILY 04/15/25 L.acidophil,salivari-Bifido bifidum-Strep thermoph 175 mg capsule 1 cap PO BID 8weeks #112 caps 04/17/25 acetaminophen 325 mg tablet 650 mg (2 x 325 mg) PO Q6H PRN PRN Pain 1-10 Or Fever >100.7 #0 tabs04/17/25 amlodipine 10 mg tablet 10 mg PO DAILY 60 days #60 tabs 04/17/25 cefdinir 300 mg capsule 300 mg PO BID #80 caps 04/17/25 hydralazine 25 mg tablet 25 mg PO BID 60 days #120 tabs 04/17/25 Hospital Course Summary of Care Provided Minutes Spent on Discharge: 35 Physical Exam Narrative GENERAL: cooperative HEENT: Atraumatic; normocephalic EYES; Anicteric, Normal Conjunctiva NECK; supple, normal thyroid, RESPIRATORY: Diminished to auscultation CARDIOVASCULAR: Regular S1 S2, GI: soft, normoactive bowel sounds, : No Renal angle tenderness; EXTREMITIES: Left foot in surgical dressing MUSCULOSKELETAL: no muscle wasting NEURO: Awake; no lateralizing signs. SKIN: As discussed above PSYCH; Flat affect Weight / BMI Weight Weight: 89.5 kg Body Mass Index (BMI) 26.7 ABG / Lab / Microbiology Data 04/17/25 06:50 04/17/25 06:50 Laboratory: Laboratory Results - last 24 hr 04/16/25 16:51: POC Glucose 181 H 04/16/25 22:47: POC Glucose 161 H 04/17/25 06:03: POC Glucose 122 H 04/17/25 06:50: WBC 7.9, RBC 3.72 L, Hgb 12.6 L, Hct 37.1 L, MCV 99.7 H, MCH 33.9 H, MCHC 34.0, RDWStd Deviation 52.2 H, RDW Coeff of Jaimee 14.6, Plt Count 207, MPV 10.4, Immature Gran % (Auto) 0.500,Neut % (Auto) 70.3 H, Lymph % (Auto) 15.0 L, [place] % (Auto) 8.9, Eos % (Auto) 4.8, Baso % (Auto) 0.5, Absolute Neuts (auto) 5.5, Absolute Lymphs (auto) 1.18, Nucleated RBC % 0, Sodium 140, Potassium 4.4, Chloride 106, Carbon Dioxide 21.9, Anion Gap 13, BUN 20 H, Creatinine 1.19, Estim Creat Clear Calc 53.44, Est GFR (MDRD) Non-Af 61, BUN/Creatinine Ratio 16.8, Glucose 171 H, Calcium 9.5, Vancomycin Trough 12.9 04/17/25 11:21: POC Glucose 174 H Microbiology: Microbiology 04/15/25 20:30 Wound - Toe Gram Stain - Final 04/15/25 20:30 Wound - Toe Wound Culture - Preliminary Staphylococcus aureus 04/15/25 20:30 Wound - Toe Anaerobic Culture - Preliminary Checking for anaerobes, further studies to follow. 04/15/25 18:00 Wound - Toe Skin and Soft Tissue MRSA/MSSA (PCR - Final Staphylococcus aureus D/C Instructions Discharge Diet: 1800 Calorie Control Diet Discharge Activity: Return to Normal Activity Call your doctor if you observe: Fever of 101 or Higher, Shortness of breath, Fainting spells and Chest pain DC O2, CPAP, BIPAP Needs Home O2 Discharge instructions: No Meaningful Use Info Meaningful Use Meaningful Use Diagnoses (Choose all that apply): None applicable Ischemic Stroke Statin Dosing Therapy Reference: STATIN DOSE THERAPY REFERENCE: * Patients > 75 years receive moderate or high dose statin therapy. * Patients 75 years or YOUNGER should receive HIGH intensity statin dose unless contraindicated. You will be required to document reason for non-treatment if statin daily dose does not meet guidelines. HIGH DOSE STATIN THERAPY DAILY Atorvastatin > than or = to 40 mg Rosuvastatin > than or = to 20 mg Amlodipine + Atorvastatin > than or = to 2.5/40 mg Ezetimibe + Simvastatin 10/80 mg Simvastatin 80mg Discharge Plan Admission Admit Date/Time: 04/15/25 17:21 Attending Provider: Coco Pepe Primary Care Provider: Zach Turner Consulting Providers: Patrick Rojas; Latonia Berry Discharge Orders/Prescriptions Prescriptions: New cefdinir 300 mg capsule 300 mg PO BID Qty: 80 0RF hydralazine 25 mg Tablet 25 mg PO BID 60 Days Qty: 120 0RF L.acidoph,saliva-B.bif-S.therm 175 mg Capsule 1 cap PO BID 56 Days Qty: 112 0RF acetaminophen 325 mg Tablet 650 mg PO Q6H PRN PRN (Reason: Pain 1-10 Or Fever >100.7) Qty: 0 0RF amlodipine 10 mg tablet 10 mg PO DAILY 60 Days Qty: 60 0RF Continued Inflectra 100 mg recon soln 100 mg IV UD Patient Comments: IV Rx Instructions: 8 MG/KG, [id number] glucosamine HCl 1,500 mg tablet 1,500 mg PO BID Rx Instructions: administer with a meal cyanocobalamin (vitamin B-12) 100 mcg tablet 500 mcg PO DAILY glipizide 10 mg tablet 10 mg PO DAILY cholecalciferol (vitamin D3) 25 mcg (1,000 unit) tablet 25 mcg PO DAILY ginkgo biloba leaf extract 60 mg capsule 60 mg PO DAILY Rx Instructions: give with meal/snack PreserVision AREDS 4,296 mcg-226 mg-90 mg capsule 1 cap PO QDAY tamsulosin 0.4 MG capsule 0.4 mg PO QHS finasteride 5 MG tablet 5 mg PO DAILY methotrexate sodium 2.5 MG tablet 7.5 mg PO Q7D pyridoxine (vitamin B6) 50 MG tablet 100 mg PO QHS fluticasone propionate 1 SPRAY spray,suspension 2 spray NASAL DAILY PRN (Reason: Nasal Congestion) folic acid 1 mg tablet 4 mg PO DAILY oxybutynin chloride 5 MG tablet 5 mg PO QHS multivitamin with folic acid 1 TABLET tablet 1 tab PO DAILY furosemide [Lasix] 20 mg tablet 20 mg PO DAILY PRN (Reason: edema) lactulose [Enulose] 10 gram/15 mL solution 15 ml PO QHS Eliquis 5 mg tablet 5 mg PO BID multivitamin [Daily Multi-Vitamin] Tablet 1 tab PO DAILY metoprolol succinate 100 mg tablet extended release 24 hr 100 mg PO BID Qty: 180 3RF pravastatin 40 mg tablet 40 mg PO QHS Qty: 90 3RF Discontinued hydrochlorothiazide 12.5 mg capsule 12.5 mg PO QDAY doxycycline hyclate 100 mg capsule 100 mg PO Q12H amlodipine 2.5 mg tablet 2.5 mg PO DAILY Qty: 90 3RF lisinopril 40 mg tablet 40 mg PO DAILY Qty: 90 3RF Referrals / Follow Up: Zach Turner MD [Primary Care Provider] - Within 2 Weeks Patrick Rojas DPM [Med Staff - Active Staff] - Within 1 Week Latonia Berry MD [Med Staff - Active Staff] - Within 2 Weeks Disposition Disposition (needs filled in before D/C Order can be placed): Home Health Service Charges/Coding Visit Charges Inpatient E&M: 72498 Disch Hosp >30min 04/17/25 1352 Cosigner Signature (if applicable): CC: Dr. Coco Pepe MD; Dr. Zach Turner MD~ Signed [facility]06[facility]04[facility] Consult note [facility] Medical Records Department [address] [address] Consultation 04/16/25 1225 MR#: [id number] Acct: [id number] Name: YESSI HATCH Rep #:[id number] : 1945 79 From: Patrick Rojas DPElvia PCP: Dr. Zach Turner MD Status:ADM IN [place] [facility] [id number] Assessment & Plan Assessment/Plan (1) Cellulitis of left foot: (2) Non-pressure chronic ulcer of other part of left foot with fat layer exposed: PLAN: Reviewed findings with patient. Awaiting MRI results. Likely osteomyelitis is going to be noted but it is encouraging that there is no purulence deep within the wound. It is difficult to fully assess if the fracture was secondary to chronic osteomyelitis or just simple injury. The portion of the middle phalanx remains and osteomyelitis is present. Osteomyelitis which is chronic is also seento the head of the third digit. The patient had been treated with conservative care with his wounds secondary tocomorbidities and intolerance to many medications. We did discuss amputation ofthe left fourth toe and risks and complications associated with that. No guarantees were given. Patient understands possibility of another long-term wound. And he will discuss this with his . Podiatry will continue to follow and review this again with the patient tomorrow. Continue with local wound care and I did discuss this with Jacqueline Del Rio. (3) Diabetes mellitus with diabetic polyneuropathy: HPI Consult Data Date of Consult: 04/17/25 HPI Narrative Reason for Consultation: Ulceration of toe HPI Narrative: YESSI HATCH, is a 79 M who presents complaining of ulceration with cellulitis to the left fourth toe. The patient is known to me from my private office where he has been treated for many ulcerations of bilateral feet. In 2022, the left hallux was amputated and the patient had very slow healing which took over a year. He had local wound care as well as Apligraf. Multiple courses of antibiotics. The patient is complicated secondary to lymphedema, immunosuppressive therapy, methotrexate, etc. When the lesser toes, which many of them had partial amputations performed by other physicians, had opened up periodically with ulcerations, he prefers conservative therapy. The patient does not tolerate many antibiotics secondary to renal status as well as chronic diarrhea. The patient presented [facility] emergency department secondary to swollen toe which did not seem to get better. [facility] Medical History Kidney disease GERD (gastroesophageal reflux disease) Former smoker Hypertension Hypertension, well controlled Amputation toe Cataract Glaucoma CPAP (continuous positive airway pressure) dependence Sleep apnea Asthma Atrial fibrillation Nonhealing nonsurgical wound with fat layer exposed Essential hypertension RAJESH (obstructive sleep apnea) Ectopic atrial tachycardia Paroxysmal ventricular tachycardia Premature atrial contractions Cellulitis Psoriasis Arthritis Shortness of breath Hyperlipidemia Hypertension Premature ventricular contraction Supraventricular tachycardia Long-term use of high-risk medication Body mass index 31.0-31.9, adult Diabetes mellitus Secondary pulmonary arterial hypertension Methicillin susceptible Staphylococcus aureus infection Acute osteomyelitis involving ankle and foot Chronic osteomyelitis involving ankle and foot Home Medications ?Medication ?Instructions ?Recorded ?Last Taken ?Type finasteride 5 mg tablet 5 mg PO DAILY prostate 02/0204/15/25 History tamsulosin 0.4 mg capsule 0.4 mg PO QHS prostate 02/0204/14/25 History fluticasone propionate 50 2 spray NASAL DAILY PRN Nasa l 06/30/18 04/15/25 History mcg/actuation nasal Congestion spray,suspension methotrexate sodium 2.5 mg tablet 7.5 mg PO Q7D arthri tis 06/30/18 04/10/25 History pyridoxine (vitamin B6) 50 mg 100 mg PO QHS supplement 06/30/18 04/14/25 History tablet multivitamin with folic acid 400 1 tab PO DAILY supple ment 10/20/18 04/15/25 History mcg tablet oxybutynin chloride 5 mg 5 mg PO QHS bladder 10/20/18 04/14/25 History tablet,extended release 24 hr folic acid 1 mg tablet 4 mg PO DAILY supplement 04/15/25 History glucosamine HCl 1,500 mg tablet 1,500 mg PO BID supple mt 02/20/20 04/15/25 History infliximab-dyyb 100 mg intravenous 100 mg IV UD psoria tic arthritis 05/30/20 04/08/25 History solution (Inflectra) cyanocobalamin (vitamin B-12) 100 500 mcg PO DAILY sup plement 12/01/20 04/15/25 History mcg tablet amlodipine 2.5 mg tablet 2.5 mg PO DAILY #90 tabs 04/15/25 Rx metoprolol succinate 100 mg 100 mg PO BID bp/heart #18 0 tabs 04/10/24 04/15/25 Rx tablet,extended release 24 hr pravastatin 40 mg tablet 40 mg PO QHS cholesterol #90 tabs 04/10/24 04/14/25 Rx cholecalciferol (vitamin D3) 25 25 mcg PO DAILY supple ment 06/20/24 04/13/25 History mcg (1,000 unit) tablet ginkgo biloba leaf extract 60 mg 60 mg PO DAILY 04/15/25 History capsule glipizide 10 mg tablet 10 mg PO DAILY dm 06/20/24 0 04/15/25 History lisinopril 40 mg tablet 40 mg PO DAILY #90 tabs 01/0804/15/25 Rx furosemide 20 mg tablet (Lasix) 20 mg PO DAILY PRN tanner ma 03/08/25 04/12/25 History hydrochlorothiazide 12.5 mg capsule 12.5 mg PO QDAY 04/15/25 History vitamins A,C,X-yiit-qinbrm 4,296 1 cap PO QDAY 5 04/15/25 History mcg-226 mg-90 mg capsule (PreserVision AREDS) apixaban 5 mg tablet (Eliquis) 5 mg PO BID 04/15/25 History doxycycline hyclate 100 mg capsule 100 mg PO Q12H 01/0804/15/25 History lactulose 10 gram/15 mL oral 15 ml PO QHS 04/15/25 History solution (Enulose) multivitamin (Daily Multi-Vitamin 1 tab PO DAILY 04/1504/15/25 History tablet) Allergy/AdvReac Type Severity Reaction Status Date / Time cephalexin (From Keflex) Allergy Severe rash Verified 04/04/25 10:13 sulfamethoxazole (From Allergy Severe Rash Verified 04/04/25 10:13 Bactrim) trimethoprim (From Bactrim) Allergy Severe Rash Verified 04/04/25 10:13 Penicillins Allergy Rash Verified 04/04/25 10:13 doxycycline AdvReac Severe GI upset Verified 04/04/25 10:13 levofloxacin (From Levaquin) AdvReac Other Verified 04/04/25 10:13 Family History Father Cancer Prostate Mother Depression Uncle Myocardial infarction Son CVA (cerebral vascular accident) Surgical History History of bilateral cataract extraction History of foot surgery (~02/2023) excision of skin cancer History of hammer toe correction (09/26/20) History of partial amputation of toe History of hernia repair History of tonsillectomy and adenoidectomy Social History Smoking Status: Former smoker pack-years: 30 alcohol intake: current alcohol intake frequency: holidays/special occasions only substance use type: does not use caffeine: Yes Type: coffee Number of servings: 2 what type of physical activity do you participate in: running and weight training frequency: 1-2 times per week Physical Exam Narrative Patient was resting comfortably in bed getting ready to order lunch. MRI had just been performed. Const alert, oriented x3 and no apparent distress Extremity Extremity Narrative: +2 edema is noted to bilateral lower extremities which is baseline for the patient. He has had compressive therapy in the past but is not particularly compliant. Peripheral Pulses: Yes posterior tibial pulses present bilateral (Pulses can be difficult to locatesecondary to the lymphedema.) and dorsalis pedis pulses present Right Lower Extremity: foot and digits Positive for inspection (Recent radiographs show the head ofthe proximal phalanx of the left fourth digit is fractured. It has shifted since previous radiographs in middle of March 2024. This is likely the cause of the hematoma that was expelled.) and other (Many digits have been partially amputated secondary to many diabetic foot ulcerations.) Left Lower Extremity: foot and digits Positive for other (Many digits have been partially amputatedsecondary to many diabetic foot ulcerations. Left hallux was amputated in 2022.) Skin Wounds: wounds noted open Wound Narrative: Small wound noted to the dorsal left 4th toe with granular base. There was a mild amount of minimalscabbing over top which was sharply debrided bedside. The area was squeezed and then a large gelatinous hematoma was expelled. There was no purulence. There was no malodor. No pieces of bone were expelled. Wound measures approximately 0.6 x 0.9 x 1.6 cm. Neuro Neuro Narrative: Peripheral neuropathy is noted and significant. Lab / Micro Data 04/17/25 06:50 04/17/25 06:50 Labs: Laboratory Results - last 24 hr 04/15/25 15:55: WBC 5.9, RBC 3.22 L, Hgb 11.4 L, Hct 32.5 L, MCV 100.9 H, MCH 35.4 H, MCHC 35.1, RDW Std Deviation 51.8 H, RDW Coeff of Jaimee 14.3, Plt Count 200, MPV 10.8, Immature Gran % (Auto) 0.300, Neut % (Auto) 59.2, Lymph % (Auto) 21.9, [place] % (Auto) 12.1 H, Eos % (Auto) 5.6 H, Baso % (Auto) 0.9, Absolute Neuts (auto) 3.5, Absolute Lymphs (auto) 1.28, Nucleated RBC % 0, ESR 21 H, Sodium 139,Potassium 3.9, Chloride 103, Carbon Dioxide 24.3, Anion Gap 12, BUN 26 H, Creatinine 1.38 H, Estim Creat Clear Calc 46.08 L, Est GFR (MDRD) Non-Af 51 L, BUN/Creatinine Ratio 19.1, Glucose 183 H, Lactic Acid 1.6, Calcium 9.4, C- React Prot Ext Range 30.20 H 04/15/25 18:56: ESR 10, C-React Prot Ext Range 30.60 H 04/15/25 21:10: POC Glucose 117 H 04/16/25 05:34: WBC 4.7, RBC 2.90 L, Hgb 10.2 L, Hct 29.2 L, MCV 100.7 H, MCH 35.2 H, MCHC 34.9, RDW Std Deviation 52.0 H, RDW Coeff of Jaimee 14.5, Plt Count 174, MPV 10.8, Immature Gran % (Auto) 0.200, Neut % (Auto) 52.4, Lymph % (Auto) 28.7, [place] % (Auto) 12.2 H, Eos % (Auto) 5.6 H, Baso % (Auto) 0.9, Absolute Neuts (auto) 2.5, Absolute Lymphs (auto) 1.34, Nucleated RBC % 0, Sodium 140, Potassium3.7, Chloride 107, Carbon Dioxide 23.9, Anion Gap 9, BUN 24 H, Creatinine 1.28 H, Estim Creat ClearCalc 49.68 L, Est GFR (MDRD) Non-Af 56 L, BUN/Creatinine Ratio 18.4, Glucose 183 H, Hemoglobin A1c 7.0 H, Calcium 9.1, Phosphorus 3.0, Magnesium 1.9 04/16/25 06:09: POC Glucose 159 H Micro: Microbiology 04/15/25 20:30 Wound - Toe Gram Stain - Final 04/15/25 20:30 Wound - Toe Wound Culture - Preliminary Gram positive organism 04/15/25 18:00 Wound - Toe Skin and Soft Tissue MRSA/MSSA (PCR - Final Staphylococcus aureus Imaging Radiology Impression Foot X-Ray 04/15/25 16:13 IMPRESSION: 1. Similar appearance of the left foot compared to radiographs on 03/27/2025, including amputation and soft tissue swelling involving multiple toes. Consider bone scan or MRI if there is concern for osteomyelitis. 2. Mildly displaced fracture of the 4th proximal phalanx. Reading Location: [id number] 04/17/25 1253 Cosigner Signature (if applicable): CC: Dr. Zach Turner MD~ Signed [facility]06-04-2025 Progress note [facility] Medical Records Department [address] [place] [address] Progress Note 04/17/25 1245 MR#: [id number] Acct: [id number] Name: YESSI HATCH Rep #:[id number] : 1945 79 From: Patrick Rojas DPM PCP: Dr. Zach Turner MD Status:ADM IN Location: MS3 [id number] Subjective Subjective Patient was resting comfortably in bed while eating lunch. He states he is feeling well and he is hopeful to go home soon. He has been thinking about whatwe talked about yesterday and is not exactly sure which route he would like to go. He has a few more questions today. Objective Data Objective Data Dressing was intact recently from wound care nurse and there is scant serosanguineous drainage. Vital Signs: Vital Signs Temp Pulse Resp BP Pulse Ox O2 Del Method O2 Flow Rate 97.4 F L 80 16 139/84 H 94 Room Air 2 04/17/25 08:15 04/17/25 08:39 04/17/25 08:15 04/17/25 08:15 04/17/25 08:58 04/17/25 08:58 04/16/25 19:54 Oxygen Flow Rate (L/min) 2 Oxygen Delivery Method Room Air Weight: 89.5 kg Body Mass Index (BMI) 26.7 Intake & Output: Intake and Output for Last 24 Hours 04/15/25 04/16/25 04/17/25 23:59 23:59 23:59 Intake Total 660.00 / 660.00 3300.25 / 3300.25 1324.75 / 1324.75 Output Total 300 / 300 Balance 660.00 / 660.00 3000.25 / 3000.25 1324.75 / 1324.75 Lab / Micro Data 04/17/25 06:50 04/17/25 06:50 Labs: Laboratory Results - last 24 hr 04/16/25 12:25: POC Glucose 166 H 04/16/25 16:51: POC Glucose 181 H 04/16/25 22:47: POC Glucose 161 H 04/17/25 06:03: POC Glucose 122 H 04/17/25 06:50: WBC 7.9, RBC 3.72 L, Hgb 12.6 L, Hct 37.1 L, MCV 99.7 H, MCH 33.9 H, MCHC 34.0, RDWStd Deviation 52.2 H, RDW Coeff of Jaimee 14.6, Plt Count 207, MPV 10.4, Immature Gran % (Auto) 0.500,Neut % (Auto) 70.3 H, Lymph % (Auto) 15.0 L, [place] % (Auto) 8.9, Eos % (Auto) 4.8, Baso % (Auto) 0.5, Absolute Neuts (auto) 5.5, Absolute Lymphs (auto) 1.18, Nucleated RBC % 0, Sodium 140, Potassium 4.4, Chloride 106, Carbon Dioxide 21.9, Anion Gap 13, BUN 20 H, Creatinine 1.19, Estim Creat Clear Calc 53.44, Est GFR (MDRD) Non-Af 61, BUN/Creatinine Ratio 16.8, Glucose 171 H, Calcium 9.5, Vancomycin Trough 12.9 04/17/25 11:21: POC Glucose 174 H Micro: Microbiology 04/15/25 20:30 Wound - Toe Gram Stain - Final 04/15/25 20:30 Wound - Toe Wound Culture - Preliminary Staphylococcus aureus 04/15/25 20:30 Wound - Toe Anaerobic Culture - Preliminary Checking for anaerobes, further studies to follow. 04/15/25 18:00 Wound - Toe Skin and Soft Tissue MRSA/MSSA (PCR - Final Staphylococcus aureus Physical Exam Narrative Clinically great improvement is seen and still awaiting the MRI report. Skin Wounds: wounds noted Wound Narrative: Left fourth toe dorsally has open wound with 100% granular base. There is scantserosanguineous drainage. Erythema has greatly improved from yesterday and is mainly at the distal aspect of the toenail. Edema has also greatly improved andpeeling skin surrounding the toe and the proximal portion of the lesser toes would be consistent with decreased edema. Minimal packing with gauze was noticed. Assessment & Plan Assessment/Plan (1) Non-pressure chronic ulcer of other part of left foot with necrosis of bone: PLAN: Reviewed findings with patient. Even though we are still awaiting the official report from the MRI, we did discuss that it is likely the toe is suffering from osteomyelitis. Treatment options were reviewed in detail which would include medical managementwith antibiotics asdirected and managed by infectious disease. Risks and complications associated with this treatment option were reviewed in detail. The patient often does not tolerate antibiotics as he states he getsdiarrhea quite often. He understands that he must take the antibiotics as directed by infectious disease and he cannot skip days when he is feeling badly. It is important and must be taken in an effort to help quiet the acute osteomyelitis and turn it to chronic. No guarantees were given with this. The other treatment option is for the fourth toe amputation. The patient was educated that it wouldbe amputated at the metatarsal phalangeal joint. The last amputation the patient had undergone for the left hallux resulted in over ayear of slow healing with an open wound. Patient is concerned about that being a result and it is very possible. He is on immunosuppressive therapy. The patient states at this point he prefers to treat this with conservative therapy and antibiotic management. If this does not work, he can always choose to have the toe amputated and this could be done on an outpatient basis. This was reviewed in detail with the patient. He feels that is the option that he would like to move forward with. Risks, complications, alternative treatments were reviewed in detail and no guarantees were given. Patient understands possibility of failure of treatment resulting in further need for surgery. All questions were answered today. The patient may be discharged from a podiatric standpoint and continue to followin my office for wound care management. Surgery may be performed on an outpatient basis if needed. Dressing was reapplied today. Podiatry will follow on an outpatient basis as needed. (2) Cellulitis of left lower limb: 04/17/25 1253 Patrick Rojas DPM Cosigner Signature (if applicable): CC: ~ Signed [facility]06-04-2025 Progress note Author Coco Pepe [facility] Note Date/Time April 17, 2025 8:55a m [facility] Medical Records Department [address] [place] [address] Progress Note - Hospitalist 04/17/25 0714 MR#: [id number] Acct: [id number] Name: YESSI HATCH Rep #:[id number] : 1945 79 From: Coco Pepe MD PCP: Dr. Zach Turner MD Status:ADM IN Location: LA3 [id number] Reason for Visit Reason for Visit: Diagnoses Type 2 diabetes mellitus with diabetic polyneuropathy (04/15/25) Type 2 diabetes mellitus with foot ulcer (04/15/25) Type 2 diabetes mellitus with other skin complications (04/15/25) Local infection of the skin and subcutaneous tissue, unspecified (04/15/25) 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 involvement without evidence of necrosis (04/15/25) Chronic kidney disease, stage 3b (04/15/25) Subjective Subjective Patient underwent MRI of the left lower extremity results still pending. Patient was seen in consultation by both Dr. Thornton with podiatry and Dr. Berry with ID notes and recommendations reviewed Objective Data Objective Data Vital Signs: Vital Signs Temp Pulse Resp BP Pulse Ox O2 Del Method O2 Flow Rate 98.2 F 87 18 144/85 H 98 Room Air 2 04/17/25 05:51 04/17/25 06:14 04/17/25 05:51 04/17/25 06:14 04/17/25 05:51 04/17/25 05:51 04/16/25 19:54 Oxygen Flow Rate (L/min) 2 Oxygen Delivery Method Room Air Weight: 89.5 kg Body Mass Index (BMI) 26.7 Intake & Output: Intake and Output for Last 24 Hours 04/15/25 04/16/25 04/17/25 23:59 23:59 23:59 Intake Total 660.00 / 660.00 3100 / 3100 1120 / 1120 Output Total 300 / 300 Balance 660.00 / 660.00 2800 / 2800 1120 / 1120 Lab / Micro Data 04/17/25 06:50 04/17/25 06:50 Labs: Laboratory Results - last 24 hr 04/16/25 06:09: POC Glucose 159 H 04/16/25 12:25: POC Glucose 166 H 04/16/25 16:51: POC Glucose 181 H 04/16/25 22:47: POC Glucose 161 H 04/17/25 06:03: POC Glucose 122 H 04/17/25 06:50: WBC 7.9, RBC 3.72 L, Hgb 12.6 L, Hct 37.1 L, MCV 99.7 H, MCH 33.9 H, MCHC 34.0, RDW Std Deviation 52.2 H, RDW Coeff of Jaimee 14.6, Plt Count 207, MPV 10.4, Immature Gran % (Auto) 0.500, Neut % (Auto) 70.3 H, Lymph % (Auto) 15.0 L, [place] % (Auto) 8.9, Eos % (Auto) 4.8, Baso % (Auto) 0.5, Absolute Neuts (auto) 5.5, Absolute Lymphs (auto) 1.18, Nucleated RBC % 0 Micro: Microbiology 04/15/25 20:30 Wound - Toe Gram Stain - Final 04/15/25 20:30 Wound - Toe Wound Culture - Preliminary Gram positive organism 04/15/25 18:00 Wound - Toe Skin and Soft Tissue MRSA/MSSA (PCR - Final Staphylococcus aureus Physical Exam Narrative GENERAL: cooperative HEENT: Atraumatic; normocephalic EYES; Anicteric, Normal Conjunctiva NECK; supple, normal thyroid, RESPIRATORY: Diminished to auscultation CARDIOVASCULAR: Regular S1 S2, GI: soft, normoactive bowel sounds, : No Renal angle tenderness; EXTREMITIES: Amputation of previous phalanges involving the left foot with residual swelling and erythema and warmth MUSCULOSKELETAL: no muscle wasting NEURO: Awake; no lateralizing signs. SKIN: As discussed above PSYCH; Flat affect Assessment & Plan Assessment/Plan (1) Diabetic foot ulcer associated with type 2 diabetes mellitus: QUALIFIERS: Diabetic foot ulcer location: toe Laterality: left Non-pressure ulcer stage: with bone involvement without evidence of necrosis Qualified Code(s): E11.621 - Type 2 diabetes mellitus with foot ulcer; L97.526 - 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 involvement without evidence of necrosis PLAN: Plan Patient is an 79-year-old gentleman presenting with erythema swelling and warmthinvolving the left foot 1. Diabetic foot infection involving the left foot. 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 Imaging studies obtained demonstrated soft tissue swelling involving multiple toes was however nonconclusive for osteomyelitis. Patient has been admitted to regular nursing floor started on broad-spectrum antibiotic therapy with meropenem and vancomycin. Ordered MRI to rule out osteomyelitis. Also ordered hemoglobin A1cESR as well as CRP ? 04/16/2025; scheduled to undergo MRI to rule out ? 04/17/2025;Patient underwent MRI of the left lower extremity results still pending. Patient was seen in consultation by both Dr. Thornton with podiatry and Dr. Berry with ID notes and recommendations reviewed 2. 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 Held patient oral agents. Started patient on long-acting insulin in addition to Accu-Cheks AC and at bedtime with sliding scale coverage. Patient was also placed on 1800 ADA diet ? 04/16/2025; patient blood glucose levels remain controlled we will continue withcurrent treatment regimen 3. Paroxysmal A-fib ? Patient heart rate was relatively low. Will place patient on continuous telemetry monitoring. Patient is on metoprolol 100 mg twice daily will hold forheart rate less than 50 and blood pressure less than 100. Patient is on systemic anticoagulation apixaban did continue 4. Chronic kidney disease stage III ? Avoided nephrotoxic medications. Patient is on furosemide Lasix as well as HCTZ held ? 04/17/2025; patient kidney function did improve after potential nephrotoxic medications held we will continue with daily monitoring BMP 5. Essential hypertension ? Patient antihypertensives adjusted as above ordered hydralazine for systolic blood pressure greater than 160 6. Obstructive sleep apnea ? Consistent use of PAP therapy encouraged 7. 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 Patient is on methotrexate as well as infliximab held in view of patient infection 8. BPH with lower urinary obstructive symptoms - Patient treated with tamsulosin 9. Anemia ? Secondary to chronic disorder monitoring H&H and transfuse if patient becomes symptomatic or hemoglobin falls below 7 10. DVT prophylaxis ? Patient is on apixaban no need for additional measures Charges/Coding Visit Charges Inpatient E&M: 02512 Subs Hosp L2 04/17/25 0855 <Electronically signed by Coco Pepe MD> Cosigner Signature (if applicable): CC: ~ Signed [facility] Work Phone: 1(374) 431-406406-04-2025 Consult note Author Judith Mar [facility] Note Date/Time April 17, 2025 8:39a m [facility] Medical Records Department [address] [place] [address] Pharmacokinetic/Renal -Consult 04/17/25 0837 MR#: [id number] Acct: [id number] Name: YESSI HATCH Rep #:[id number] : 1945 79 From: Judith Ivory PCP: Dr. Zach Turner MD Status:ADM IN [place] [facility] [id number] Consult Antibiotic Management Pharmacy has been consulted to manage selected antibiotic: Vancomycin Type of Intervention Type of Consult: Follow-up Suspected Infection Suspected Infection: Skin/Soft tissue Prior Doses of Antibiotics Prior Doses of Antibiotics Received/Current Regimen: 04/16/25 @ 0749 Vancomycin 750mg 04/16/25 @ 1900 Vancomycin 750mg Labs Labs: Sodium 140 mmol/L (133-145) 04/17/25 06:50 Potassium 4.4 mmol/L (3.3-5.1) 04/17/25 06:50 Chloride 106 mmol/L (98-108) 04/17/25 06:50 Carbon Dioxide 21.9 mmol/L (21.0-32.0) 04/17/25 06:50 Anion Gap 13 (5-15) 04/17/25 06:50 BUN 20 mg/dL (4-19) H 04/17/25 06:50 Creatinine 1.19 mg/dL (0.70-1.20) 04/17/25 06:50 Est GFR (MDRD) Non-Af 61 (>60) 04/17/25 06:50 BUN/Creatinine Ratio 16.8 RATIO (10-20) 04/17/25 06:50 Glucose 171 mg/dL (70-99) H 04/17/25 06:50 Vancomycin Trough 12.9 ug/mL (5.0-15.0) 04/17/25 06:50 Microbiology Microbiology: Microbiology 04/15/25 20:30 Wound - Toe Gram Stain - Final 04/15/25 20:30 Wound - Toe Wound Culture - Preliminary Gram positive organism 04/15/25 18:00 Wound - Toe Skin and Soft Tissue MRSA/MSSA (PCR - Final Staphylococcus aureus Dosing Weight Weight used for dosin kg Goal Trough Goal Trough: 15-20 mcg/mL Pharmacy Plan for Drug Dosing Pharmacy Plan for Drug Dosing: Increase Vancomyvin to 1000mg every 12 hours Pharmacy Service will continue to monitor and adjust dosing as required. Follow-Up Labs Follow-Up Labs: Trough: Vancomycin Date/Time Labs Ordered Labs to be done on [date and time ordered]: 04/18/25 @ 2100 04/17/25 0839 <Electronically signed by Judith Mar> Date _ Judith Doherty Signature (if applicable): Date CC: ~ Signed [facility] Work Phone: 1(315) 122-739406-04-2025 Progress note [facility] Medical Records Department [address] [place] [address] Progress Note - Hospitalist 04/17/25 0714 MR#: [id number] Acct: [id number] Name: YESSI HATCH Rep #:[id number] : 1945 79 From: Coco Pepe MD PCP: Dr. Zach Turner MD Status:ADM IN Location: [place] [address] Reason for Visit Reason for Visit: Diagnoses Type 2 diabetes mellitus with diabetic polyneuropathy (04/15/25) Type 2 diabetes mellitus with foot ulcer (04/15/25) Type 2 diabetes mellitus with other skin complications (04/15/25) Local infection of the skin and subcutaneous tissue, unspecified (04/15/25) 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 involvement without evidence of necrosis (04/15/25) Chronic kidney disease, stage 3b (04/15/25) Subjective Subjective Patient underwent MRI of the left lower extremity results still pending. Patient was seen in consultation by both Dr. Thornton with podiatry and Dr. Berry with ID notes and recommendations reviewed Objective Data Objective Data Vital Signs: Vital Signs Temp Pulse Resp BP Pulse Ox O2 Del Method O2 Flow Rate 98.2 F 87 18 144/85 H 98 Room Air 2 04/17/25 05:51 04/17/25 06:14 04/17/25 05:51 04/17/25 06:14 04/17/25 05:51 04/17/25 05:51 04/16/25 19:54 Oxygen Flow Rate (L/min) 2 Oxygen Delivery Method Room Air Weight: 89.5 kg Body Mass Index (BMI) 26.7 Intake & Output: Intake and Output for Last 24 Hours 04/15/25 04/16/25 04/17/25 23:59 23:59 23:59 Intake Total 660.00 / 660.00 3100 / 3100 1120 / 1120 Output Total 300 / 300 Balance 660.00 / 660.00 2800 / 2800 1120 / 1120 Lab / Micro Data 04/17/25 06:50 04/17/25 06:50 Labs: Laboratory Results - last 24 hr 04/16/25 06:09: POC Glucose 159 H 04/16/25 12:25: POC Glucose 166 H 04/16/25 16:51: POC Glucose 181 H 04/16/25 22:47: POC Glucose 161 H 04/17/25 06:03: POC Glucose 122 H 04/17/25 06:50: WBC 7.9, RBC 3.72 L, Hgb 12.6 L, Hct 37.1 L, MCV 99.7 H, MCH 33.9 H, MCHC 34.0, RDWStd Deviation 52.2 H, RDW Coeff of Jaimee 14.6, Plt Count 207, MPV 10.4, Immature Gran % (Auto) 0.500,Neut % (Auto) 70.3 H, Lymph % (Auto) 15.0 L, [place] % (Auto) 8.9, Eos % (Auto) 4.8, Baso % (Auto) 0.5, Absolute Neuts (auto) 5.5, Absolute Lymphs (auto) 1.18, Nucleated RBC % 0 Micro: Microbiology 04/15/25 20:30 Wound - Toe Gram Stain - Final 04/15/25 20:30 Wound - Toe Wound Culture - Preliminary Gram positive organism 04/15/25 18:00 Wound - Toe Skin and Soft Tissue MRSA/MSSA (PCR - Final Staphylococcus aureus Physical Exam Narrative GENERAL: cooperative HEENT: Atraumatic; normocephalic EYES; Anicteric, Normal Conjunctiva NECK; supple, normal thyroid, RESPIRATORY: Diminished to auscultation CARDIOVASCULAR: Regular S1 S2, GI: soft, normoactive bowel sounds, : No Renal angle tenderness; EXTREMITIES: Amputation of previous phalanges involving the left foot with residual swelling and erythema and warmth MUSCULOSKELETAL: no muscle wasting NEURO: Awake; no lateralizing signs. SKIN: As discussed above PSYCH; Flat affect Assessment & Plan Assessment/Plan (1) Diabetic foot ulcer associated with type 2 diabetes mellitus: QUALIFIERS: Diabetic foot ulcer location: toe Laterality: left Non-pressure ulcer stage: with bone involvement without evidence of necrosis Qualified Code(s): E11.621 - Type 2 diabetes mellitus with foot ulcer; L97.526 - 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 involvement without evidence of necrosis PLAN: Plan Patient is an 79-year-old gentleman presenting with erythema swelling and warmthinvolving the left foot 1. Diabetic foot infection involving the left foot. Patient has previous history of osteomyelitis with previous amputation of the phalanges at the metatarsophalangeal joint of the great toe, and at the proximalinterphalangeal joints of the 3rd and 4thtoes. Imaging studies obtained demonstrated soft tissue swelling involving multiple toes was however nonconclusive for osteomyelitis. Patient has been admitted to regular nursing floor started on broad-spectrum antibiotic therapy with meropenem and vancomycin. Ordered MRI to rule out osteomyelitis.Also ordered hemoglobin A1cESR as well as CRP ? 04/16/2025; scheduled to undergo MRI to rule out ? 04/17/2025;Patient underwent MRI of the left lower extremity results still pending. Patient was seen in consultation by both Dr. Thornton with podiatry and Dr. Berry with ID notes and recommendationsreviewed 2. 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 Held patient oral agents. Started patient on long-acting insulin in addition to Accu-Cheks AC andat bedtime with sliding scale coverage. Patient was also placed on 1800 ADA diet ? 04/16/2025; patient blood glucose levels remain controlled we will continue withcurrent treatment regimen 3. Paroxysmal A-fib ? Patient heart rate was relatively low. Will place patient on continuous telemetry monitoring. Patient is on metoprolol 100 mg twice daily will hold forheart rate less than 50 and blood pressure less than 100. Patient is on systemic anticoagulation apixaban did continue 4. Chronic kidney disease stage III ? Avoided nephrotoxic medications. Patient is on furosemide Lasix as well as HCTZ held ? 04/17/2025; patient kidney function did improve after potential nephrotoxic medications held we will continue with daily monitoring BMP 5. Essential hypertension ? Patient antihypertensives adjusted as above ordered hydralazine for systolic blood pressure greater than 160 6. Obstructive sleep apnea ? Consistent use of PAP therapy encouraged 7. 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 Patient is on methotrexate as well as infliximab held in view of patient infection 8. BPH with lower urinary obstructive symptoms - Patient treated with tamsulosin 9. Anemia ? Secondary to chronic disorder monitoring H&H and transfuse if patient becomes symptomatic or hemoglobin falls below 7 10. DVT prophylaxis ? Patient is on apixaban no need for additional measures Charges/Coding Visit Charges Inpatient E&M: 13647 Subs Hosp L2 04/17/25 0855 Cosigner Signature (if applicable): CC: ~ Signed [facility]06-04-[address] [facility] Medical Records Department [address] [place] [address] Pharmacokinetic/Renal -Consult 04/17/25 0837 MR#: [id number] Acct: [id number] Name: YESSI HATCH Rep #:[id number] : 1945 79 From: Judith Ivory PCP: Dr. Zach Turner MD Status:ADM IN Location: [place] [address] Consult Antibiotic Management Pharmacy has been consulted to manage selected antibiotic: Vancomycin Type of Intervention Type of Consult: Follow-up Suspected Infection Suspected Infection: Skin/Soft tissue Prior Doses of Antibiotics Prior Doses of Antibiotics Received/Current Regimen: 04/16/25 @ 0749 Vancomycin 750mg 04/16/25 @ 1900 Vancomycin 750mg Labs Labs: Sodium 140 mmol/L (133-145) 04/17/25 06:50 Potassium 4.4 mmol/L (3.3-5.1) 04/17/25 06:50 Chloride 106 mmol/L (98-108) 04/17/25 06:50 Carbon Dioxide 21.9 mmol/L (21.0-32.0) 04/17/25 06:50 Anion Gap 13 (5-15) 04/17/25 06:50 BUN 20 mg/dL (4-19) H 04/17/25 06:50 Creatinine 1.19 mg/dL (0.70-1.20) 04/17/25 06:50 Est GFR (MDRD) Non-Af 61 (>60) 04/17/25 06:50 BUN/Creatinine Ratio 16.8 RATIO (10-20) 04/17/25 06:50 Glucose 171 mg/dL (70-99) H 04/17/25 06:50 Vancomycin Trough 12.9 ug/mL (5.0-15.0) 04/17/25 06:50 Microbiology Microbiology: Microbiology 04/15/25 20:30 Wound - Toe Gram Stain - Final 04/15/25 20:30 Wound - Toe Wound Culture - Preliminary Gram positive organism 04/15/25 18:00 Wound - Toe Skin and Soft Tissue MRSA/MSSA (PCR - Final Staphylococcus aureus Dosing Weight Weight used for dosin kg Goal Trough Goal Trough: 15-20 mcg/mL Pharmacy Plan for Drug Dosing Pharmacy Plan for Drug Dosing: Increase Vancomyvin to 1000mg every 12 hours Pharmacy Service will continue to monitor and adjust dosing as required. Follow-Up Labs Follow-Up Labs: Trough: Vancomycin Date/Time Labs Ordered Labs to be done on [date and time ordered]: 04/18/25 @ 2100 04/17/25 0839 Radha Date _ Judith Doherty Signature (if applicable): Date CC: ~ Signed [facility]06-03-2025 Consult note Author Latonia Berry [facility] Note Date/Time April 16, 2025 10:35 am [facility] Medical Records Department [address] [place] [address] Consultation - Infectious Dx 04/16/25 1032 MR#: [id number] Acct: [id number] Name: YESSI HATCH Rep #:[id number] : 1945 79 From: Latonia patel MD PCP: Dr. Zach Turner MD Status:ADM IN [place] [facility] [id number] Assessment & Plan Assessment/Plan (1) Chronic kidney disease: QUALIFIERS: Chronic kidney disease stage: stage 3 (moderate) Chronic kidney disease stage 3 subtype: stage 3b (GFR 30-44) Qualified Code(s): N18.32 - Chronic kidney disease, stage 3b (2) Diabetes mellitus with diabetic polyneuropathy: (3) Diabetic infection of left foot: PLAN: MRI pending. Wound cx pending. Wound pcr (+) mssa. Cont vanc/elliot for now. Will follow, thank you HPI Consult Data Date of Consult: 04/16/25 HPI Narrative Reason for Consultation: foot infection HPI Narrative: YESSI HATCH, is a 79 M with DM neuropathy, presented with several days worsening redness and swelling of toes on L foot. Prior L hallux amp. No feveror chills. No pain in foot. Was started on doxycycline recently but sx worsened. Came to ED, admitted on vanc/elliot, MRI planned. Full ROS performed and neg except as noted above. [facility] Medical History Kidney disease GERD (gastroesophageal reflux disease) Former smoker Hypertension Hypertension, well controlled Amputation toe Cataract Glaucoma CPAP (continuous positive airway pressure) dependence Sleep apnea Asthma Atrial fibrillation Nonhealing nonsurgical wound with fat layer exposed Essential hypertension RAJESH (obstructive sleep apnea) Ectopic atrial tachycardia Paroxysmal ventricular tachycardia Premature atrial contractions Cellulitis Psoriasis Arthritis Shortness of breath Hyperlipidemia Hypertension Premature ventricular contraction Supraventricular tachycardia Long-term use of high-risk medication Body mass index 31.0-31.9, adult Diabetes mellitus Secondary pulmonary arterial hypertension Methicillin susceptible Staphylococcus aureus infection Acute osteomyelitis involving ankle and foot Chronic osteomyelitis involving ankle and foot Home Medications ?Medication ?Instructions ?Recorded ?Last Taken ?Type finasteride 5 mg tablet 5 mg PO DAILY prostate 02/0204/15/25 History tamsulosin 0.4 mg capsule 0.4 mg PO QHS prostate 02/0204/14/25 History fluticasone propionate 50 2 spray NASAL DAILY PRN Nasa l 06/30/18 04/15/25 History mcg/actuation nasal Congestion spray,suspension methotrexate sodium 2.5 mg tablet 7.5 mg PO Q7D arthri tis 06/30/18 04/10/25 History pyridoxine (vitamin B6) 50 mg 100 mg PO QHS supplement 06/30/18 04/14/25 History tablet multivitamin with folic acid 400 1 tab PO DAILY supple ment 10/20/18 04/15/25 History mcg tablet oxybutynin chloride 5 mg 5 mg PO QHS bladder 10/20/18 04/14/25 History tablet,extended release 24 hr folic acid 1 mg tablet 4 mg PO DAILY supplement 04/15/25 History glucosamine HCl 1,500 mg tablet 1,500 mg PO BID supple mt 02/20/20 04/15/25 History infliximab-dyyb 100 mg intravenous 100 mg IV UD psoria tic arthritis 05/30/20 04/08/25 History solution (Inflectra) cyanocobalamin (vitamin B-12) 100 500 mcg PO DAILY sup plement 12/01/20 04/15/25 History mcg tablet amlodipine 2.5 mg tablet 2.5 mg PO DAILY #90 tabs 04/15/25 Rx metoprolol succinate 100 mg 100 mg PO BID bp/heart #18 0 tabs 04/10/24 04/15/25 Rx tablet,extended release 24 hr pravastatin 40 mg tablet 40 mg PO QHS cholesterol #90 tabs 04/10/24 04/14/25 Rx cholecalciferol (vitamin D3) 25 25 mcg PO DAILY supple ment 06/20/24 04/13/25 History mcg (1,000 unit) tablet ginkgo biloba leaf extract 60 mg 60 mg PO DAILY 04/15/25 History capsule glipizide 10 mg tablet 10 mg PO DAILY dm 06/20/24 0 04/15/25 History lisinopril 40 mg tablet 40 mg PO DAILY #90 tabs 01/0804/15/25 Rx furosemide 20 mg tablet (Lasix) 20 mg PO DAILY PRN tanner ma 03/08/25 04/12/25 History hydrochlorothiazide 12.5 mg capsule 12.5 mg PO QDAY 04/15/25 History vitamins A,C,B-jtyj-jzhaeg 4,296 1 cap PO QDAY 03/08/ 5 04/15/25 History mcg-226 mg-90 mg capsule (PreserVision AREDS) apixaban 5 mg tablet (Eliquis) 5 mg PO BID 04/15/25 History doxycycline hyclate 100 mg capsule 100 mg PO Q12H 01/0804/15/25 History lactulose 10 gram/15 mL oral 15 ml PO QHS 04/15/25 History solution (Enulose) multivitamin (Daily Multi-Vitamin 1 tab PO DAILY 04/1504/15/25 History tablet) Allergy/AdvReac Type Severity Reaction Status Date / Time cephalexin (From Keflex) Allergy Severe rash Verified 04/04/25 10:13 sulfamethoxazole (From Allergy Severe Rash Verified 04/04/25 10:13 Bactrim) trimethoprim (From Bactrim) Allergy Severe Rash Verified 04/04/25 10:13 Penicillins Allergy Rash Verified 04/04/25 10:13 doxycycline AdvReac Severe GI upset Verified 04/04/25 10:13 levofloxacin (From Levaquin) AdvReac Other Verified 04/04/25 10:13 Family History Father Cancer Prostate Mother Depression Uncle Myocardial infarction Son CVA (cerebral vascular accident) Surgical History History of bilateral cataract extraction History of foot surgery (~02/2023) excision of skin cancer History of hammer toe correction (09/26/20) History of partial amputation of toe History of hernia repair History of tonsillectomy and adenoidectomy Social History Smoking Status: Former smoker pack-years: 30 alcohol intake: current alcohol intake frequency: holidays/special occasions only substance use type: does not use caffeine: Yes Type: coffee Number of servings: 2 what type of physical activity do you participate in: running and weight training frequency: 1-2 times per week Physical Exam Const alert, oriented x3 and no apparent distress General Appearance: cooperative HEENT normocephalic and head/scalp atraumatic Eyes PERRL and EOMs intact bilaterally Neck supple and No nodes Resp normal air movement and clear to auscultation bilaterally Cardio regular rate and regular rhythm GI soft to palpation, non-tender and non-distended Extremity General Extremity: edema Skin Skin Narrative: L 3rd and 4th toes with swelling, redness, shallow ulceration Neuro CN's II-XII intact bilaterally Lab / Micro Data Attestation: I reviewed the patient's lab results. 04/16/25 05:34 04/16/25 05:34 Labs: Laboratory Results - last 24 hr 04/15/25 15:55: WBC 5.9, RBC 3.22 L, Hgb 11.4 L, Hct 32.5 L, MCV 100.9 H, MCH 35.4 H, MCHC 35.1, RDW Std Deviation 51.8 H, RDW Coeff of Jaimee 14.3, Plt Count 200, MPV 10.8, Immature Gran % (Auto) 0.300, Neut % (Auto) 59.2, Lymph % (Auto) 21.9, [place] % (Auto) 12.1 H, Eos % (Auto) 5.6 H, Baso % (Auto) 0.9, Absolute Neuts (auto) 3.5, Absolute Lymphs (auto) 1.28, Nucleated RBC % 0, ESR 21 H, Sodium 139, Potassium 3.9, Chloride 103, Carbon Dioxide 24.3, Anion Gap 12, BUN 26 H, Creatinine 1.38 H, Estim Creat Clear Calc 46.08 L, Est GFR (MDRD) Non-Af 51 L, BUN/Creatinine Ratio 19.1, Glucose 183 H, Lactic Acid 1.6, Calcium 9.4, C-React Prot Ext Range 30.20 H 04/15/25 18:56: ESR 10, C-React Prot Ext Range 30.60 H 04/15/25 21:10: POC Glucose 117 H 04/16/25 05:34: WBC 4.7, RBC 2.90 L, Hgb 10.2 L, Hct 29.2 L, MCV 100.7 H, MCH 35.2 H, MCHC 34.9, RDW Std Deviation 52.0 H, RDW Coeff of Jaimee 14.5, Plt Count 174, MPV 10.8, Immature Gran % (Auto) 0.200, Neut % (Auto) 52.4, Lymph % (Auto) 28.7, [place] % (Auto) 12.2 H, Eos % (Auto) 5.6 H, Baso % (Auto) 0.9, Absolute Neuts (auto) 2.5, Absolute Lymphs (auto) 1.34, Nucleated RBC % 0, Sodium 140, Potassium 3.7, Chloride 107, Carbon Dioxide 23.9, Anion Gap 9, BUN 24 H, Creatinine 1.28 H, Estim Creat Clear Calc 49.68 L, Est GFR (MDRD) Non-Af 56 L, BUN/Creatinine Ratio 18.4, Glucose 183 H, Hemoglobin A1c 7.0 H, Calcium 9.1, Phosphorus 3.0, Magnesium 1.9 Micro: Microbiology 04/15/25 20:30 Wound - Toe Gram Stain - Final 04/15/25 20:30 Wound - Toe Wound Culture - Preliminary Gram positive organism 04/15/25 18:00 Wound - Toe Skin and Soft Tissue MRSA/MSSA (PCR - Final Staphylococcus aureus Imaging Radiology Impression Foot X-Ray 04/15/25 16:13 IMPRESSION: 1. Similar appearance of the left foot compared to radiographs on 03/27/2025, including amputation and soft tissue swelling involving multiple toes. Consider bone scan or MRI if there is concern for osteomyelitis. 2. Mildly displaced fracture of the 4th proximal phalanx. Reading Location: [facility] 04/16/251034 <Electronically signed by Latonia Berry MD> Cosigner Signature (if applicable): CC: Dr. Zach Turner MD~ Signed [facility] Work Phone: 1(840) 505-606406-03-2025 [facility]06-03-2025 Consult note [facility] Medical Records Department [address] [place] [address] Consultation - Infectious Dx 04/16/25 1032 MR#: [id number] Acct: [id number] Name: YESSI HATCH Rep #:[id number] : 1945 79 From: Latonia patel MD PCP: Dr. Zach Turner MD Status:ADM IN [place] [facility] [id number] Assessment & Plan Assessment/Plan (1) Chronic kidney disease: QUALIFIERS: Chronic kidney disease stage: stage 3 (moderate) Chronic kidney disease stage 3 subtype: stage 3b (GFR 30-44) Qualified Code(s): N18.32 - Chronic kidney disease, stage 3b (2) Diabetes mellitus with diabetic polyneuropathy: (3) Diabetic infection of left foot: PLAN: MRI pending. Wound cx pending. Wound pcr (+) mssa. Cont vanc/elliot for now. Will follow, thank you HPI Consult Data Date of Consult: 04/16/25 HPI Narrative Reason for Consultation: foot infection HPI Narrative: YESSI HATCH, is a 79 M with DM neuropathy, presented with several days worsening redness and swelling of toes on L foot. Prior L hallux amp. No feveror chills. No pain in foot. Was started on doxycycline recently but sx worsened. Came to ED, admitted on vanc/elliot, MRI planned. Full ROS performed and neg except as noted above. [facility] Medical History Kidney disease GERD (gastroesophageal reflux disease) Former smoker Hypertension Hypertension, well controlled Amputation toe Cataract Glaucoma CPAP (continuous positive airway pressure) dependence Sleep apnea Asthma Atrial fibrillation Nonhealing nonsurgical wound with fat layer exposed Essential hypertension RAJESH (obstructive sleep apnea) Ectopic atrial tachycardia Paroxysmal ventricular tachycardia Premature atrial contractions Cellulitis Psoriasis Arthritis Shortness of breath Hyperlipidemia Hypertension Premature ventricular contraction Supraventricular tachycardia Long-term use of high-risk medication Body mass index 31.0-31.9, adult Diabetes mellitus Secondary pulmonary arterial hypertension Methicillin susceptible Staphylococcus aureus infection Acute osteomyelitis involving ankle and foot Chronic osteomyelitis involving ankle and foot Home Medications ?Medication ?Instructions ?Recorded ?Last Taken ?Type finasteride 5 mg tablet 5 mg PO DAILY prostate 02/0204/15/25 History tamsulosin 0.4 mg capsule 0.4 mg PO QHS prostate 02/0204/14/25 History fluticasone propionate 50 2 spray NASAL DAILY PRN Nasa l 06/30/18 04/15/25 History mcg/actuation nasal Congestion spray,suspension methotrexate sodium 2.5 mg tablet 7.5 mg PO Q7D arthri tis 06/30/18 04/10/25 History pyridoxine (vitamin B6) 50 mg 100 mg PO QHS supplement 06/30/18 04/14/25 History tablet multivitamin with folic acid 400 1 tab PO DAILY supple ment 10/20/18 04/15/25 History mcg tablet oxybutynin chloride 5 mg 5 mg PO QHS bladder 10/20/18 04/14/25 History tablet,extended release 24 hr folic acid 1 mg tablet 4 mg PO DAILY supplement 04/15/25 History glucosamine HCl 1,500 mg tablet 1,500 mg PO BID supple mt 02/20/20 04/15/25 History infliximab-dyyb 100 mg intravenous 100 mg IV UD psoria tic arthritis 05/30/20 04/08/25 History solution (Inflectra) cyanocobalamin (vitamin B-12) 100 500 mcg PO DAILY sup plement 12/01/20 04/15/25 History mcg tablet amlodipine 2.5 mg tablet 2.5 mg PO DAILY #90 tabs 04/15/25 Rx metoprolol succinate 100 mg 100 mg PO BID bp/heart #18 0 tabs 04/10/24 04/15/25 Rx tablet,extended release 24 hr pravastatin 40 mg tablet 40 mg PO QHS cholesterol #90 tabs 04/10/24 04/14/25 Rx cholecalciferol (vitamin D3) 25 25 mcg PO DAILY supple ment 06/20/24 04/13/25 History mcg (1,000 unit) tablet ginkgo biloba leaf extract 60 mg 60 mg PO DAILY 04/15/25 History capsule glipizide 10 mg tablet 10 mg PO DAILY dm 06/20/24 0 04/15/25 History lisinopril 40 mg tablet 40 mg PO DAILY #90 tabs 01/0804/15/25 Rx furosemide 20 mg tablet (Lasix) 20 mg PO DAILY PRN tanner ma 03/08/25 04/12/25 History hydrochlorothiazide 12.5 mg capsule 12.5 mg PO QDAY 04/15/25 History vitamins A,C,U-scrw-ohksnd 4,296 1 cap PO QDAY 5 04/15/25 History mcg-226 mg-90 mg capsule (PreserVision AREDS) apixaban 5 mg tablet (Eliquis) 5 mg PO BID 04/15/25 History doxycycline hyclate 100 mg capsule 100 mg PO Q12H 01/0804/15/25 History lactulose 10 gram/15 mL oral 15 ml PO QHS 04/15/25 History solution (Enulose) multivitamin (Daily Multi-Vitamin 1 tab PO DAILY 04/1504/15/25 History tablet) Allergy/AdvReac Type Severity Reaction Status Date / Time cephalexin (From Keflex) Allergy Severe rash Verified 04/04/25 10:13 sulfamethoxazole (From Allergy Severe Rash Verified 04/04/25 10:13 Bactrim) trimethoprim (From Bactrim) Allergy Severe Rash Verified 04/04/25 10:13 Penicillins Allergy Rash Verified 04/04/25 10:13 doxycycline AdvReac Severe GI upset Verified 04/04/25 10:13 levofloxacin (From Levaquin) AdvReac Other Verified 04/04/25 10:13 Family History Father Cancer Prostate Mother Depression Uncle Myocardial infarction Son CVA (cerebral vascular accident) Surgical History History of bilateral cataract extraction History of foot surgery (~02/2023) excision of skin cancer History of hammer toe correction (09/26/20) History of partial amputation of toe History of hernia repair History of tonsillectomy and adenoidectomy Social History Smoking Status: Former smoker pack-years: 30 alcohol intake: current alcohol intake frequency: holidays/special occasions only substance use type: does not use caffeine: Yes Type: coffee Number of servings: 2 what type of physical activity do you participate in: running and weight training frequency: 1-2 times per week Physical Exam Const alert, oriented x3 and no apparent distress General Appearance: cooperative HEENT normocephalic and head/scalp atraumatic Eyes PERRL and EOMs intact bilaterally Neck supple and No nodes Resp normal air movement and clear to auscultation bilaterally Cardio regular rate and regular rhythm GI soft to palpation, non-tender and non-distended Extremity General Extremity: edema Skin Skin Narrative: L 3rd and 4th toes with swelling, redness, shallow ulceration Neuro CN's II-XII intact bilaterally Lab / Micro Data Attestation: I reviewed the patient's lab results. 04/16/25 05:34 04/16/25 05:34 Labs: Laboratory Results - last 24 hr 04/15/25 15:55: WBC 5.9, RBC 3.22 L, Hgb 11.4 L, Hct 32.5 L, MCV 100.9 H, MCH 35.4 H, MCHC 35.1, RDW Std Deviation 51.8 H, RDW Coeff of Jaimee 14.3, Plt Count 200, MPV 10.8, Immature Gran % (Auto) 0.300, Neut % (Auto) 59.2, Lymph % (Auto) 21.9, [place] % (Auto) 12.1 H, Eos % (Auto) 5.6 H, Baso % (Auto) 0.9, Absolute Neuts (auto) 3.5, Absolute Lymphs (auto) 1.28, Nucleated RBC % 0, ESR 21 H, Sodium 139,Potassium 3.9, Chloride 103, Carbon Dioxide 24.3, Anion Gap 12, BUN 26 H, Creatinine 1.38 H, Estim Creat Clear Calc 46.08 L, Est GFR (MDRD) Non-Af 51 L, BUN/Creatinine Ratio 19.1, Glucose 183 H, Lactic Acid 1.6, Calcium 9.4, C- React Prot Ext Range 30.20 H 04/15/25 18:56: ESR 10, C-React Prot Ext Range 30.60 H 04/15/25 21:10: POC Glucose 117 H 04/16/25 05:34: WBC 4.7, RBC 2.90 L, Hgb 10.2 L, Hct 29.2 L, MCV 100.7 H, MCH 35.2 H, MCHC 34.9, RDW Std Deviation 52.0 H, RDW Coeff of Jaimee 14.5, Plt Count 174, MPV 10.8, Immature Gran % (Auto) 0.200, Neut % (Auto) 52.4, Lymph % (Auto) 28.7, [place] % (Auto) 12.2 H, Eos % (Auto) 5.6 H, Baso % (Auto) 0.9, Absolute Neuts (auto) 2.5, Absolute Lymphs (auto) 1.34, Nucleated RBC % 0, Sodium 140, Potassium3.7, Chloride 107, Carbon Dioxide 23.9, Anion Gap 9, BUN 24 H, Creatinine 1.28 H, Estim Creat ClearCalc 49.68 L, Est GFR (MDRD) Non-Af 56 L, BUN/Creatinine Ratio 18.4, Glucose 183 H, Hemoglobin A1c 7.0 H, Calcium 9.1, Phosphorus 3.0, Magnesium 1.9 Micro: Microbiology 04/15/25 20:30 Wound - Toe Gram Stain - Final 04/15/25 20:30 Wound - Toe Wound Culture - Preliminary Gram positive organism 04/15/25 18:00 Wound - Toe Skin and Soft Tissue MRSA/MSSA (PCR - Final Staphylococcus aureus Imaging Radiology Impression Foot X-Ray 04/15/25 16:13 IMPRESSION: 1. Similar appearance of the left foot compared to radiographs on 03/27/2025, including amputation and soft tissue swelling involving multiple toes. Consider bone scan or MRI if there is concern for osteomyelitis. 2. Mildly displaced fracture of the 4th proximal phalanx. Reading Location: [id number] 04/16/25 1035 Cosigner Signature (if applicable): CC: Dr. Zach Turner MD~ Signed [facility]06-03-2025 Progress note Author Coco Pepe [facility] Note Date/Time April 16, 2025 8:26a m [facility] Medical Records Department [address] [place] [address] Progress Note - Hospitalist 04/16/25 0728 MR#: [id number] Acct: [id number] Name: YESSI HATCH Rep #:[id number] : 1945 79 From: Coco Pepe MD PCP: Dr. Zach Turner MD Status:ADM IN Location: [address] Reason for Visit Reason for Visit: Diagnoses Type 2 diabetes mellitus with foot ulcer (04/15/25) 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 involvement without evidence of necrosis (04/15/25) Subjective Subjective Patient is on 79-year-old gentleman admitted with diabetic foot infection plan is for patient to undergo subsequent evaluation with an MRI to rule out osteomyelitis. Wound cultures obtained on admission so far positive for staph. Objective Data Objective Data Vital Signs: Vital Signs Temp Pulse Resp BP Pulse Ox O2 Del Method 98.4 F 73 18 139/71 H 95 Room Air 04/16/25 06:02 04/16/25 06:15 04/16/25 06:02 04/16/25 06:15 04/16/25 06:02 04/16/25 06:02 Oxygen Delivery Method Room Air Weight: 89.539 kg Body Mass Index (BMI) 26.7 Intake & Output: Intake and Output for Last 24 Hours 04/14/25 04/15/25 04/16/25 23:59 23:59 23:59 Intake Total 660.00 / 660.00 900 / 900 Output Total 300 / 300 Balance 660.00 / 660.00 600 / 600 Lab / Micro Data 04/16/25 05:34 04/16/25 05:34 Labs: Laboratory Results - last 24 hr 04/15/25 15:55: WBC 5.9, RBC 3.22 L, Hgb 11.4 L, Hct 32.5 L, MCV 100.9 H, MCH 35.4 H, MCHC 35.1, RDW Std Deviation 51.8 H, RDW Coeff of Jaimee 14.3, Plt Count 200, MPV 10.8, Immature Gran % (Auto) 0.300, Neut % (Auto) 59.2, Lymph % (Auto) 21.9, [place] % (Auto) 12.1 H, Eos % (Auto) 5.6 H, Baso % (Auto) 0.9, Absolute Neuts (auto) 3.5, Absolute Lymphs (auto) 1.28, Nucleated RBC % 0, ESR 21 H, Sodium 139, Potassium 3.9, Chloride 103, Carbon Dioxide 24.3, Anion Gap 12, BUN 26 H, Creatinine 1.38 H, Estim Creat Clear Calc 46.08 L, Est GFR (MDRD) Non-Af 51 L, BUN/Creatinine Ratio 19.1, Glucose 183 H, Lactic Acid 1.6, Calcium 9.4, C-React Prot Ext Range 30.20 H 04/15/25 18:56: ESR 10, C-React Prot Ext Range 30.60 H 04/15/25 21:10: POC Glucose 117 H 04/16/25 05:34: WBC 4.7, RBC 2.90 L, Hgb 10.2 L, Hct 29.2 L, MCV 100.7 H, MCH 35.2 H, MCHC 34.9, RDW Std Deviation 52.0 H, RDW Coeff of Jaimee 14.5, Plt Count 174, MPV 10.8, Immature Gran % (Auto) 0.200, Neut % (Auto) 52.4, Lymph % (Auto) 28.7, [place] % (Auto) 12.2 H, Eos % (Auto) 5.6 H, Baso % (Auto) 0.9, Absolute Neuts (auto) 2.5, Absolute Lymphs (auto) 1.34, Nucleated RBC % 0, Sodium 140, Potassium 3.7, Chloride 107, Carbon Dioxide 23.9, Anion Gap 9, BUN 24 H, Creatinine 1.28 H, Estim Creat Clear Calc 49.68 L, Est GFR (MDRD) Non-Af 56 L, BUN/Creatinine Ratio 18.4, Glucose 183 H, Hemoglobin A1c 7.0 H, Calcium 9.1, Phosphorus 3.0, Magnesium 1.9 Micro: Microbiology 04/15/25 18:00 Wound - Toe Skin and Soft Tissue MRSA/MSSA (PCR - Final Staphylococcus aureus Radiography Diagnostic Testing: Radiology Impression Foot X-Ray 04/15/25 16:13 IMPRESSION: 1. Similar appearance of the left foot compared to radiographs on 03/27/2025, including amputation and soft tissue swelling involving multiple toes. Consider bone scan or MRI if there is concern for osteomyelitis. 2. Mildly displaced fracture of the 4th proximal phalanx. Reading Location: [facility] Physical Exam Narrative GENERAL: cooperative HEENT: Atraumatic; normocephalic EYES; Anicteric, Normal Conjunctiva NECK; supple, normal thyroid, RESPIRATORY: Diminished to auscultation CARDIOVASCULAR: Regular S1 S2, GI: soft, normoactive bowel sounds, : No Renal angle tenderness; EXTREMITIES: Amputation of previous phalanges involving the left foot with residual swelling and erythema and warmth MUSCULOSKELETAL: no muscle wasting NEURO: Awake; no lateralizing signs. SKIN: As discussed above PSYCH; Flat affect Assessment & Plan Assessment/Plan (1) Diabetic foot ulcer associated with type 2 diabetes mellitus: QUALIFIERS: Diabetic foot ulcer location: toe Laterality: left Non-pressure ulcer stage: with bone involvement without evidence of necrosis Qualified Code(s): E11.621 - Type 2 diabetes mellitus with foot ulcer; L97.526 - 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 involvement without evidence of necrosis PLAN: Plan Patient is an 79-year-old gentleman presenting with erythema swelling and warmthinvolving the left foot 1. Diabetic foot infection involving the left foot. 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 Imaging studies obtained demonstrated soft tissue swelling involving multiple toes was however nonconclusive for osteomyelitis. Patient has been admitted to regular nursing floor started on broad-spectrum antibiotic therapy with meropenem and vancomycin. Ordered MRI to rule out osteomyelitis. Also ordered hemoglobin A1cESR as well as CRP ? 04/16/2025; scheduled to undergo MRI to rule out 2. 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 Held patient oral agents. Started patient on long-acting insulin in addition to Accu-Cheks AC and at bedtime with sliding scale coverage. Patient was also placed on 1800 ADA diet ? 04/16/2025; patient blood glucose levels remain controlled we will continue withcurrent treatment regimen 3. Paroxysmal A-fib ? Patient heart rate was relatively low. Will place patient on continuous telemetry monitoring. Patient is on metoprolol 100 mg twice daily will hold forheart rate less than 50 and blood pressure less than 100. Patient is on systemic anticoagulation apixaban did continue 4. Chronic kidney disease stage III ? Avoided nephrotoxic medications. Patient is on furosemide Lasix as well as HCTZ held 5. Essential hypertension ? Patient antihypertensives adjusted as above ordered hydralazine for systolic blood pressure greater than 160 6. Obstructive sleep apnea ? Consistent use of PAP therapy encouraged 7. 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 Patient is on methotrexate as well as infliximab held in view of patient infection 8. BPH with lower urinary obstructive symptoms - Patient treated with tamsulosin 9. Anemia ? Secondary to chronic disorder monitoring H&H and transfuse if patient becomes symptomatic or hemoglobin falls below 7 10. DVT prophylaxis ? Patient is on apixaban no need for additional measures Charges/Coding Visit Charges Inpatient E&M: 73258 Subs Hosp L2 04/16/25 0826 <Electronically signed by Coco Pepe MD> Cosigner Signature (if applicable): CC: ~ Signed [facility] Work Phone: 1(174) 843-545806-03-2025 Consult note Author Meena Rico [facility] Note Date/Time April 16, 2025 7:15a m [facility] Medical Records Department [address] [place] [address] Pharmacokinetic/Renal -Consult 04/15/251956 MR#: [id number] Acct: [id number] Name: LESLYYESSI TSE Rep #:[id number] : 1945 79 From: Meena Rico PCP: Dr. Zach Turner MD Status:ADM IN Y Location: [place]3 [id number] Consult Antibiotic Management Pharmacy has been consulted to manage selected antibiotic: Vancomycin Type of Intervention Type of Consult: New start Suspected Infection Suspected Infection: Skin/Soft tissue Labs Labs: Sodium 139 mmol/L (133-145) 04/15/25 15:55 Potassium 3.9 mmol/L (3.3-5.1) 04/15/25 15:55 Chloride 103 mmol/L (98-108) 04/15/25 15:55 Carbon Dioxide 24.3 mmol/L (21.0-32.0) 04/15/25 15:55 Anion Gap 12 (5-15) 04/15/25 15:55 BUN 26 mg/dL (4-19) H 04/15/25 15:55 Creatinine 1.38 mg/dL (0.70-1.20) H 04/15/25 15:55 Est GFR (MDRD) Non-Af 51 (>60) L 04/15/25 15:55 BUN/Creatinine Ratio 19.1 RATIO (10-20) 04/15/25 15:55 Glucose 183 mg/dL (70-99) H 04/15/25 15:55 Microbiology Microbiology: Microbiology 04/15/25 18:00 Wound - Toe Skin and Soft Tissue MRSA/MSSA (PCR - Preliminary Staphylococcus aureus Dosing Weight Weight used for dosin.5 kg Goal Trough Goal Trough: 15-20 mcg/mL Pharmacy Plan for Drug Dosing Pharmacy Plan for Drug Dosing: NEW START IV VANCOMYCIN Consulting Physician: MY Indication: SST/DIABETIC FOOT ULCER Goal Trough: 15-20 SrCr: 1.38 mg/dL CrCl: 46.08 Comments: pt started in the ED with 2000 mg Vancomycin Dose: 750 Q24H Pending Level: 04/17/2025 @0600 Pharmacy Service will continue to monitor and adjust dosing as required. 04/15/251957 <Electronically signed by Meena garcia> Date _ Meena Rico 04/16/25 0715 <Electronically signed by Coco Pepe MD> Cosigner Signature (if applicable): Date Coco Pepe MD CC: ~ Signed [facility] Work Phone: 1(818) 749-985806-03-2025 Progress note [facility] Medical Records Department [address] [place] [address] Progress Note - Hospitalist 04/16/25 0728 MR#: [id number] Acct: [id number] Name: YESSI HATCH Rep #:[id number] : 1945 79 From: Coco Pepe MD PCP: Dr. Zach Turner MD Status:ADM IN Location: [place] [address] Reason for Visit Reason for Visit: Diagnoses Type 2 diabetes mellitus with foot ulcer (04/15/25) 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 involvement without evidence of necrosis (04/15/25) Subjective Subjective Patient is on 79-year-old gentleman admitted with diabetic foot infection plan is for patient to undergo subsequent evaluation with an MRI to rule out osteomyelitis. Wound cultures obtained on admission so far positive for staph. Objective Data Objective Data Vital Signs: Vital Signs Temp Pulse Resp BP Pulse Ox O2 Del Method 98.4 F 73 18 139/71 H 95 Room Air 04/16/25 06:02 04/16/25 06:15 04/16/25 06:02 04/16/25 06:15 04/16/25 06:02 04/16/25 06:02 Oxygen Delivery Method Room Air Weight: 89.539 kg Body Mass Index (BMI) 26.7 Intake & Output: Intake and Output for Last 24 Hours 04/14/25 04/15/25 04/16/25 23:59 23:59 23:59 Intake Total 660.00 / 660.00 900 / 900 Output Total 300 / 300 Balance 660.00 / 660.00 600 / 600 Lab / Micro Data 04/16/25 05:34 04/16/25 05:34 Labs: Laboratory Results - last 24 hr 04/15/25 15:55: WBC 5.9, RBC 3.22 L, Hgb 11.4 L, Hct 32.5 L, MCV 100.9 H, MCH 35.4 H, MCHC 35.1, RDW Std Deviation 51.8 H, RDW Coeff of Jaimee 14.3, Plt Count 200, MPV 10.8, Immature Gran % (Auto) 0.300, Neut % (Auto) 59.2, Lymph % (Auto) 21.9, [place] % (Auto) 12.1 H, Eos % (Auto) 5.6 H, Baso % (Auto) 0.9, Absolute Neuts (auto) 3.5, Absolute Lymphs (auto) 1.28, Nucleated RBC % 0, ESR 21 H, Sodium 139,Potassium 3.9, Chloride 103, Carbon Dioxide 24.3, Anion Gap 12, BUN 26 H, Creatinine 1.38 H, Estim Creat Clear Calc 46.08 L, Est GFR (MDRD) Non-Af 51 L, BUN/Creatinine Ratio 19.1, Glucose 183 H, Lactic Acid 1.6, Calcium 9.4, C- React Prot Ext Range 30.20 H 04/15/25 18:56: ESR 10, C-React Prot Ext Range 30.60 H 04/15/25 21:10: POC Glucose 117 H 04/16/25 05:34: WBC 4.7, RBC 2.90 L, Hgb 10.2 L, Hct 29.2 L, MCV 100.7 H, MCH 35.2 H, MCHC 34.9, RDW Std Deviation 52.0 H, RDW Coeff of Jaimee 14.5, Plt Count 174, MPV 10.8, Immature Gran % (Auto) 0.200, Neut % (Auto) 52.4, Lymph % (Auto) 28.7, [place] % (Auto) 12.2 H, Eos % (Auto) 5.6 H, Baso % (Auto) 0.9, Absolute Neuts (auto) 2.5, Absolute Lymphs (auto) 1.34, Nucleated RBC % 0, Sodium 140, Potassium3.7, Chloride 107, Carbon Dioxide 23.9, Anion Gap 9, BUN 24 H, Creatinine 1.28 H, Estim Creat ClearCalc 49.68 L, Est GFR (MDRD) Non-Af 56 L, BUN/Creatinine Ratio 18.4, Glucose 183 H, Hemoglobin A1c 7.0 H, Calcium 9.1, Phosphorus 3.0, Magnesium 1.9 Micro: Microbiology 04/15/25 18:00 Wound - Toe Skin and Soft Tissue MRSA/MSSA (PCR - Final Staphylococcus aureus Radiography Diagnostic Testing: Radiology Impression Foot X-Ray 04/15/25 16:13 IMPRESSION: 1. Similar appearance of the left foot compared to radiographs on 03/27/2025, including amputation and soft tissue swelling involving multiple toes. Consider bone scan or MRI if there is concern for osteomyelitis. 2. Mildly displaced fracture of the 4th proximal phalanx. Reading Location: [id number] Physical Exam Narrative GENERAL: cooperative HEENT: Atraumatic; normocephalic EYES; Anicteric, Normal Conjunctiva NECK; supple, normal thyroid, RESPIRATORY: Diminished to auscultation CARDIOVASCULAR: Regular S1 S2, GI: soft, normoactive bowel sounds, : No Renal angle tenderness; EXTREMITIES: Amputation of previous phalanges involving the left foot with residual swelling and erythema and warmth MUSCULOSKELETAL: no muscle wasting NEURO: Awake; no lateralizing signs. SKIN: As discussed above PSYCH; Flat affect Assessment & Plan Assessment/Plan (1) Diabetic foot ulcer associated with type 2 diabetes mellitus: QUALIFIERS: Diabetic foot ulcer location: toe Laterality: left Non-pressure ulcer stage: with bone involvement without evidence of necrosis Qualified Code(s): E11.621 - Type 2 diabetes mellitus with foot ulcer; L97.526 - 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 involvement without evidence of necrosis PLAN: Plan Patient is an 79-year-old gentleman presenting with erythema swelling and warmthinvolving the left foot 1. Diabetic foot infection involving the left foot. Patient has previous history of osteomyelitis with previous amputation of the phalanges at the metatarsophalangeal joint of the great toe, and at the proximalinterphalangeal joints of the 3rd and 4thtoes. Imaging studies obtained demonstrated soft tissue swelling involving multiple toes was however nonconclusive for osteomyelitis. Patient has been admitted to regular nursing floor started on broad-spectrum antibiotic therapy with meropenem and vancomycin. Ordered MRI to rule out osteomyelitis.Also ordered hemoglobin A1cESR as well as CRP ? 04/16/2025; scheduled to undergo MRI to rule out 2. 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 Held patient oral agents. Started patient on long-acting insulin in addition to Accu-Cheks AC andat bedtime with sliding scale coverage. Patient was also placed on 1800 ADA diet ? 04/16/2025; patient blood glucose levels remain controlled we will continue withcurrent treatment regimen 3. Paroxysmal A-fib ? Patient heart rate was relatively low. Will place patient on continuous telemetry monitoring. Patient is on metoprolol 100 mg twice daily will hold forheart rate less than 50 and blood pressure less than 100. Patient is on systemic anticoagulation apixaban did continue 4. Chronic kidney disease stage III ? Avoided nephrotoxic medications. Patient is on furosemide Lasix as well as HCTZ held 5. Essential hypertension ? Patient antihypertensives adjusted as above ordered hydralazine for systolic blood pressure greater than 160 6. Obstructive sleep apnea ? Consistent use of PAP therapy encouraged 7. 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 Patient is on methotrexate as well as infliximab held in view of patient infection 8. BPH with lower urinary obstructive symptoms - Patient treated with tamsulosin 9. Anemia ? Secondary to chronic disorder monitoring H&H and transfuse if patient becomes symptomatic or hemoglobin falls below 7 10. DVT prophylaxis ? Patient is on apixaban no need for additional measures Charges/Coding Visit Charges Inpatient E&M: 16661 Subs Hosp L2 04/16/25 0826 Cosigner Signature (if applicable): CC: ~ Signed [facility]06-03-[address] [facility] Medical Records Department [address] [place] [address] Pharmacokinetic/Renal -Consult 04/15/251956 MR#: [id number] Acct: [id number] Name: YESSI HATCH Rep #:[id number] : 1945 79 From: Meena Rico PCP: Dr. Zach Turner MD Status:ADM IN Y [place] [facility] [id number] Antibiotic Management Pharmacy has been consulted to manage selected antibiotic: Vancomycin Type of Intervention Type of Consult: New start Suspected Infection Suspected Infection: Skin/Soft tissue Labs Labs: Sodium 139 mmol/L (133-145) 04/15/25 15:55 Potassium 3.9 mmol/L (3.3-5.1) 04/15/25 15:55 Chloride 103 mmol/L (98-108) 04/15/25 15:55 Carbon Dioxide 24.3 mmol/L (21.0-32.0) 04/15/25 15:55 Anion Gap 12 (5-15) 04/15/25 15:55 BUN 26 mg/dL (4-19) H 04/15/25 15:55 Creatinine 1.38 mg/dL (0.70-1.20) H 04/15/25 15:55 Est GFR (MDRD) Non-Af 51 (>60) L 04/15/25 15:55 BUN/Creatinine Ratio 19.1 RATIO (10-20) 04/15/25 15:55 Glucose 183 mg/dL (70-99) H 04/15/25 15:55 Microbiology Microbiology: Microbiology 04/15/25 18:00 Wound - Toe Skin and Soft Tissue MRSA/MSSA (PCR - Preliminary Staphylococcus aureus Dosing Weight Weight used for dosin.5 kg Goal Trough Goal Trough: 15-20 mcg/mL Pharmacy Plan for Drug Dosing Pharmacy Plan for Drug Dosing: NEW START IV VANCOMYCIN Consulting Physician: MY Indication: SST/DIABETIC FOOT ULCER Goal Trough: 15-20 SrCr: 1.38 mg/dL CrCl: 46.08 Comments: pt started in the ED with 2000 mg Vancomycin Dose: 750 Q24H Pending Level: 04/17/2025 @0600 Pharmacy Service will continue to monitor and adjust dosing as required. 04/15/251957 ey> Date _ Meena Rico 04/16/2515 > Chas Signature (if applicable): Date Coco Pepe MD CC: ~ Signed [facility]06-03-2025 Discharge summary Author Edgar Gudino [facility] Note Date/Time April 16, 2025 1:44a m [facility] Medical Records Department [address] [place] [address] Emergency Department Summary 04/15/25 MR#: [id number] Acct: [id number] Name: YESSI HATCH Rep #:[id number] : 1945 79 From: Edgar Page ggett DO PCP: Dr. Zach Turner MD Status:ADM IN Location: [place] [id number] HPI History of Present Illness Chief Complaint: Cellulitis Narrative Narrative: Chief complaint and HPI: 79-year-old male with past medical history of DM2, history of MRSA and osteomyelitis, atrial fibrillation on Eliquis presents for evaluation of left toe wound and cellulitis. Patient has a history of osteomyelitis in the past which she has required toe amputations. He follows with podiatry, Dr. Freeman. Patient states that he recently obtained an x-ray a couple weeks ago that showed possible osteomyelitis in his fourth toe. He states he has an appointment with podiatry tomorrow. He states on Tuesday they noticed blood on his sock and when they took his sock off he had an open wound on his left toe. He states since then it has become red and the redness is spreading to the other toes as well as up the foot. He denies any fever, chills, body aches, nausea, vomiting. States he has peripheral neuropathy at baseline and therefore does not feel pain. Review of systems: See HPI Medications: As listed on the chart Allergies: As listed on the chart PFSH: Per chart Vital signs: As listed on the chart. Reviewed. Physical exam: Gen: A&O x3, NAD Head: Normocephalic, atraumatic Eyes: No sclera icterus, conjunctiva clear ENT: Moist mucous membranes Neck: Trachea midline, No JVD CV: RRR, no murmurs, no peripheral edema Resp: Lungs CTA BL, no w/r/c Musc: Full ROM, no deformity, patient has toe amputations to the majority of histoes bilaterally, he has a small open wound to the left dorsal aspect of the toe, there is erythema and warmth to all the toes extending to the dorsum of theleft foot, he has bilateral peripheral pitting edema which she states is chronicpalpable peripheral pulses Skin: Warm, dry Neuro: Alert, oriented, grossly intact, sensation intact Psych: Cooperative, appropriate mood and affect [facility] Medical History (Updated 04/15/25 @ 18:32 by Sierra Chan) Kidney disease GERD (gastroesophageal reflux disease) Former smoker Hypertension Hypertension, well controlled Amputation toe Cataract Glaucoma CPAP (continuous positive airway pressure) dependence Sleep apnea Asthma Atrial fibrillation Nonhealing nonsurgical wound with fat layer exposed Essential hypertension RAJESH (obstructive sleep apnea) Ectopic atrial tachycardia Paroxysmal ventricular tachycardia Premature atrial contractions Cellulitis Psoriasis Arthritis Shortness of breath Hyperlipidemia Hypertension Premature ventricular contraction Supraventricular tachycardia Long-term use of high-risk medication Body mass index 31.0-31.9, adult Diabetes mellitus Secondary pulmonary arterial hypertension Methicillin susceptible Staphylococcus aureus infection Acute osteomyelitis involving ankle and foot Chronic osteomyelitis involving ankle and foot Home Medications ?Medication ?Instructions ?Recorded ?Last Taken ?Type finasteride 5 mg tablet 5 mg PO DAILY prostate 02/0204/15/25 History tamsulosin 0.4 mg capsule 0.4 mg PO QHS prostate 02/0204/14/25 History fluticasone propionate 50 2 spray NASAL DAILY PRN Nasa l 06/30/18 04/15/25 History mcg/actuation nasal Congestion spray,suspension methotrexate sodium 2.5 mg tablet 7.5 mg PO Q7D arthri tis 06/30/18 04/10/25 History pyridoxine (vitamin B6) 50 mg 100 mg PO QHS supplement 06/30/18 04/14/25 History tablet multivitamin with folic acid 400 1 tab PO DAILY supple ment 10/20/18 04/15/25 History mcg tablet oxybutynin chloride 5 mg 5 mg PO QHS bladder 10/20/18 04/14/25 History tablet,extended release 24 hr folic acid 1 mg tablet 4 mg PO DAILY supplement 04/15/25 History glucosamine HCl 1,500 mg tablet 1,500 mg PO BID supple mt 02/20/20 04/15/25 History infliximab-dyyb 100 mg intravenous 100 mg IV UD psoria tic arthritis 05/30/20 04/08/25 History solution (Inflectra) cyanocobalamin (vitamin B-12) 100 500 mcg PO DAILY sup plement 12/01/20 04/15/25 History mcg tablet amlodipine 2.5 mg tablet 2.5 mg PO DAILY #90 tabs 04/15/25 Rx metoprolol succinate 100 mg 100 mg PO BID bp/heart #18 0 tabs 04/10/24 04/15/25 Rx tablet,extended release 24 hr pravastatin 40 mg tablet 40 mg PO QHS cholesterol #90 tabs 04/10/24 04/14/25 Rx cholecalciferol (vitamin D3) 25 25 mcg PO DAILY supple ment 06/20/24 04/13/25 History mcg (1,000 unit) tablet ginkgo biloba leaf extract 60 mg 60 mg PO DAILY 04/15/25 History capsule glipizide 10 mg tablet 10 mg PO DAILY dm 06/20/24 0 04/15/25 History lisinopril 40 mg tablet 40 mg PO DAILY #90 tabs 01/0804/15/25 Rx furosemide 20 mg tablet (Lasix) 20 mg PO DAILY PRN tanner ma 03/08/25 04/12/25 History hydrochlorothiazide 12.5 mg capsule 12.5 mg PO QDAY 04/15/25 History vitamins A,C,I-zrlr-ohuddg 4,296 1 cap PO QDAY 5 04/15/25 History mcg-226 mg-90 mg capsule (PreserVision AREDS) apixaban 5 mg tablet (Eliquis) 5 mg PO BID 04/15/25 History doxycycline hyclate 100 mg capsule 100 mg PO Q12H 01/0804/15/25 History lactulose 10 gram/15 mL oral 15 ml PO QHS 04/15/25 History solution (Enulose) multivitamin (Daily Multi-Vitamin 1 tab PO DAILY 04/1504/15/25 History tablet) Allergy/AdvReac Type Severity Reaction Status Date / Time cephalexin (From Keflex) Allergy Severe rash Verified 04/04/25 10:13 sulfamethoxazole (From Allergy Severe Rash Verified 04/04/25 10:13 Bactrim) trimethoprim (From Bactrim) Allergy Severe Rash Verified 04/04/25 10:13 Penicillins Allergy Rash Verified 04/04/25 10:13 doxycycline AdvReac Severe GI upset Verified 04/04/25 10:13 levofloxacin (From Levaquin) AdvReac Other Verified 04/04/25 10:13 Family History Father Cancer Prostate Mother Depression Uncle Myocardial infarction Son CVA (cerebral vascular accident) Surgical History History of bilateral cataract extraction History of foot surgery (~02/2023) excision of skin cancer History of hammer toe correction (09/26/20) History of partial amputation of toe History of hernia repair History of tonsillectomy and adenoidectomy Social History Smoking Status: Former smoker pack-years: 30 alcohol intake: current alcohol intake frequency: holidays/special occasions only substance use type: does not use caffeine: Yes Type: coffee Number of servings: 2 what type of physical activity do you participate in: running and weight training frequency: 1-2 times per week EXAM Physical Exam Const Vital Signs: 04/15/25 15:13 04/15/25 15:15 04/15/25 16:15 Temperature 97.9 F 97.9 F 97.9 F Temperature Source Oral Oral Oral Pulse Rate 85 85 75 Respiratory Rate 16 16 17 Blood Pressure 143/80 H 143/80 H 128/81 H Blood Pressure Mean 101 101 96 Pulse Ox 99 99 100 Oxygen Delivery Method Room Air Room Air Room Air 04/15/25 17:00 Temperature 97.9 F Temperature Source Oral Pulse Rate 71 Respiratory Rate 10 L Blood Pressure 142/91 H Blood Pressure Mean 108 Pulse Ox 100 Oxygen Delivery Method Room Air MDM MDM MDM Narrative Medical decision making narrative: 79-year-old male with past medical history of DM2, history of MRSA and osteomyelitis, atrial fibrillation on Eliquis presents for evaluation of left toe wound and cellulitis. Patient states that several weeks ago he obtained an x-ray that showed possible osteomyelitis in the toe. Send he developed a wound with spreading erythema. Denies any systemic symptoms. Differential diagnosis includes but is not limited to cellulitis, osteomyelitis, bacteremia. Laboratory workup ordered including repeat x-ray of the right foot. On chart review, I was unable to find any podiatry notes. However patient did have x-rayof the left foot on 03/27 that showed amputation of 3rd and 4th proximal PIP joints. Amputation of the first metatarsal phalangeal joint. Haziness at the surgical margins. Osteomyelitis cannot be excluded. Chart review, patient is on immunosuppressants including Inflectra and methotrexate. CBC without leukocytosis however this may be skewed due to his immunosuppressants. Patient has baseline anemia of 11.4. ESR unremarkable. BMP shows baseline renal insufficiency. Lactic acid unremarkable. CRP elevated at 30.6. X-ray of the left foot shows soft tissue swelling involving multiple toes. Similar appearance compared to previous x-ray. Recommends MRI for concern for osteomyelitis. Mildly displaced fracture of the fourth proximal phalanx. Giventhese findings, podiatry was contacted and patient was discussed with Dr. Freeman. Given patient is on immunosuppressants with previous history of poor wound healing, recommended admission for IV antibiotics. I spoke with the patient andupdated him on the results and the plan. He confirmed understanding. Meropenemand vancomycin ordered for antibiotics due to his allergies. Patient was discussed with the hospitalist service who accepted admission. Impression: 1. Diabetic left foot wound with cellulitis 2. Chronic osteomyelitis 3. Immunosuppression Lab Data Labs: Laboratory Results - last 24 hr 04/15/25 15:55 WBC 5.9 RBC 3.22 L Hgb 11.4 L Hct 32.5 L MCV 100.9 H MCH 35.4 H MCHC 35.1 RDW Std Deviation 51.8 H RDW Coeff of Jaimee 14.3 Plt Count 200 MPV 10.8 Immature Gran % (Auto) 0.300 Neut % (Auto) 59.2 Lymph % (Auto) 21.9 [place] % (Auto) 12.1 H Eos % (Auto) 5.6 H Baso % (Auto) 0.9 Absolute Neuts (auto) 3.5 Absolute Lymphs (auto) 1.28 Nucleated RBC % 0 ESR 21 H Sodium 139 Potassium 3.9 Chloride 103 Carbon Dioxide 24.3 Anion Gap 12 BUN 26 H Creatinine 1.38 H Estim Creat Clear Calc 46.08 L Est GFR (MDRD) Non-Af 51 L BUN/Creatinine Ratio 19.1 Glucose 183 H Lactic Acid 1.6 Calcium 9.4 C-React Prot Ext Range 30.20 H Radiography Diagnostic Testing: Clinical Impression(s) from Imaging Studies Foot X-Ray 04/15/25 16:13 IMPRESSION: 1. Similar appearance of the left foot compared to radiographs on 03/27/2025, including amputation and soft tissue swelling involving multiple toes. Consider bone scan or MRI if there is concern for osteomyelitis. 2. Mildly displaced fracture of the 4th proximal phalanx. Reading Location: [facility] Discharge Plan Disposition Disposition: Acute Care Hospital [facility] Discharge Date/Time: 04/15/25 18:06 What to do if you have Problems For any increased pain, shortness of breath, bleeding, nausea or vomiting, chestpain, or any unexpected problems, contact your Primary Care Provider. Call [facility] ([phone]) or report to the closest Emergency Room. Call 911 if necessary. 04/16/25 0144 <Electronically signed by Edgar Gudino DO> Cosigner Signature (if applicable): CC: Dr. Zach Turner MD ~ Signed [facility] Work Phone: 1(662) 669-838106-03-2025 Discharge summary [facility] Medical Records Department [address] [place] [address] Emergency Department Summary 04/15/25 MR#: [id number] Acct: [id number] Name: YESSI HATCH Rep #:[id number] : 1945 79 From: Edgar guillaume DO PCP: Dr. Zach Turner MD Status:ADM IN [place] [facility] [id number] HPI History of Present Illness Chief Complaint: Cellulitis Narrative Narrative: Chief complaint and HPI: 79-year-old male with past medical history of DM2, history of MRSA and osteomyelitis, atrial fibrillation on Eliquis presents for evaluation of left toe wound and cellulitis.Patient has a history of osteomyelitis in the past which she has required toe amputations. He follows with podiatry, Dr. Freeman. Patient states that he recently obtained an x-ray a couple weeks ago that showed possible osteomyelitis in his fourth toe. He states he has an appointment with podiatry tomorrow. He states on Tuesday they noticed blood on his sock and when they took his sock off he had anopen wound on his left toe. He states since then it has become red and the redness is spreading to the other toes as well as up the foot. He denies any fever, chills, body aches, nausea, vomiting. States he has peripheral neuropathy at baseline and therefore does not feel pain. Review of systems: See HPI Medications: As listed on the chart Allergies: As listed on the chart PFSH: Per chart Vital signs: As listed on the chart. Reviewed. Physical exam: Gen: A&O x3, NAD Head: Normocephalic, atraumatic Eyes: No sclera icterus, conjunctiva clear ENT: Moist mucous membranes Neck: Trachea midline, No JVD CV: RRR, no murmurs, no peripheral edema Resp: Lungs CTA BL, no w/r/c Musc: Full ROM, no deformity, patient has toe amputations to the majority of histoes bilaterally, he has a small open wound to the left dorsal aspect of the toe, there is erythema and warmth to all the toes extending to the dorsum of theleft foot, he has bilateral peripheral pitting edema which shestates is chronicpalpable peripheral pulses Skin: Warm, dry Neuro: Alert, oriented, grossly intact, sensation intact Psych: Cooperative, appropriate mood and affect [facility] Medical History (Updated 04/15/25 @ 18:32 by Sierra Chan) Kidney disease GERD (gastroesophageal reflux disease) Former smoker Hypertension Hypertension, well controlled Amputation toe Cataract Glaucoma CPAP (continuous positive airway pressure) dependence Sleep apnea Asthma Atrial fibrillation Nonhealing nonsurgical wound with fat layer exposed Essential hypertension RAJESH (obstructive sleep apnea) Ectopic atrial tachycardia Paroxysmal ventricular tachycardia Premature atrial contractions Cellulitis Psoriasis Arthritis Shortness of breath Hyperlipidemia Hypertension Premature ventricular contraction Supraventricular tachycardia Long-term use of high-risk medication Body mass index 31.0-31.9, adult Diabetes mellitus Secondary pulmonary arterial hypertension Methicillin susceptible Staphylococcus aureus infection Acute osteomyelitis involving ankle and foot Chronic osteomyelitis involving ankle and foot Home Medications ?Medication ?Instructions ?Recorded ?Last Taken ?Type finasteride 5 mg tablet 5 mg PO DAILY prostate 02/0204/15/25 History tamsulosin 0.4 mg capsule 0.4 mg PO QHS prostate 02/0204/14/25 History fluticasone propionate 50 2 spray NASAL DAILY PRN Nasa l 06/30/18 04/15/25 History mcg/actuation nasal Congestion spray,suspension methotrexate sodium 2.5 mg tablet 7.5 mg PO Q7D arthri tis 06/30/18 04/10/25 History pyridoxine (vitamin B6) 50 mg 100 mg PO QHS supplement 06/30/18 04/14/25 History tablet multivitamin with folic acid 400 1 tab PO DAILY supple ment 10/20/18 04/15/25 History mcg tablet oxybutynin chloride 5 mg 5 mg PO QHS bladder 10/20/18 04/14/25 History tablet,extended release 24 hr folic acid 1 mg tablet 4 mg PO DAILY supplement 04/15/25 History glucosamine HCl 1,500 mg tablet 1,500 mg PO BID supple mt 02/20/20 04/15/25 History infliximab-dyyb 100 mg intravenous 100 mg IV UD psoria tic arthritis 05/30/20 04/08/25 History solution (Inflectra) cyanocobalamin (vitamin B-12) 100 500 mcg PO DAILY sup plement 12/01/20 04/15/25 History mcg tablet amlodipine 2.5 mg tablet 2.5 mg PO DAILY #90 tabs 04/15/25 Rx metoprolol succinate 100 mg 100 mg PO BID bp/heart #18 0 tabs 04/10/24 04/15/25 Rx tablet,extended release 24 hr pravastatin 40 mg tablet 40 mg PO QHS cholesterol #90 tabs 04/10/24 04/14/25 Rx cholecalciferol (vitamin D3) 25 25 mcg PO DAILY supple ment 06/20/24 04/13/25 History mcg (1,000 unit) tablet ginkgo biloba leaf extract 60 mg 60 mg PO DAILY 04/15/25 History capsule glipizide 10 mg tablet 10 mg PO DAILY dm 06/20/24 0 04/15/25 History lisinopril 40 mg tablet 40 mg PO DAILY #90 tabs 01/0804/15/25 Rx furosemide 20 mg tablet (Lasix) 20 mg PO DAILY PRN tanner ma 03/08/25 04/12/25 History hydrochlorothiazide 12.5 mg capsule 12.5 mg PO QDAY 04/15/25 History vitamins A,C,H-aiut-pxunwk 4,296 1 cap PO QDAY 03/08/2 5 04/15/25 History mcg-226 mg-90 mg capsule (PreserVision AREDS) apixaban 5 mg tablet (Eliquis) 5 mg PO BID 04/15/25 History doxycycline hyclate 100 mg capsule 100 mg PO Q12H 01/0804/15/25 History lactulose 10 gram/15 mL oral 15 ml PO QHS 04/15/25 History solution (Enulose) multivitamin (Daily Multi-Vitamin 1 tab PO DAILY 04/1504/15/25 History tablet) Allergy/AdvReac Type Severity Reaction Status Date / Time cephalexin (From Keflex) Allergy Severe rash Verified 04/04/25 10:13 sulfamethoxazole (From Allergy Severe Rash Verified 04/04/25 10:13 Bactrim) trimethoprim (From Bactrim) Allergy Severe Rash Verified 04/04/25 10:13 Penicillins Allergy Rash Verified 04/04/25 10:13 doxycycline AdvReac Severe GI upset Verified 04/04/25 10:13 levofloxacin (From Levaquin) AdvReac Other Verified 04/04/25 10:13 Family History Father Cancer Prostate Mother Depression Uncle Myocardial infarction Son CVA (cerebral vascular accident) Surgical History History of bilateral cataract extraction History of foot surgery (~02/2023) excision of skin cancer History of hammer toe correction (09/26/20) History of partial amputation of toe History of hernia repair History of tonsillectomy and adenoidectomy Social History Smoking Status: Former smoker pack-years: 30 alcohol intake: current alcohol intake frequency: holidays/special occasions only substance use type: does not use caffeine: Yes Type: coffee Number of servings: 2 what type of physical activity do you participate in: running and weight training frequency: 1-2 times per week EXAM Physical Exam Const Vital Signs: 04/15/25 15:13 04/15/25 15:15 04/15/25 16:15 Temperature 97.9 F 97.9 F 97.9 F Temperature Source Oral Oral Oral Pulse Rate 85 85 75 Respiratory Rate 16 16 17 Blood Pressure 143/80 H 143/80 H 128/81 H Blood Pressure Mean 101 101 96 Pulse Ox 99 99 100 Oxygen Delivery Method Room Air Room Air Room Air 04/15/25 17:00 Temperature 97.9 F Temperature Source Oral Pulse Rate 71 Respiratory Rate 10 L Blood Pressure 142/91 H Blood Pressure Mean 108 Pulse Ox 100 Oxygen Delivery Method Room Air MDM MDM MDM Narrative Medical decision making narrative: 79-year-old male with past medical history of DM2, history of MRSA and osteomyelitis, atrial fibrillation on Eliquis presents for evaluation of left toe wound and cellulitis. Patient states that several weeks ago he obtained an x-ray that showed possible osteomyelitis in the toe. Send he developed a wound with spreading erythema. Denies any systemic symptoms. Differential diagnosis includes but is not limited to cellulitis, osteomyelitis, bacteremia. Laboratory workup ordered including repeat x-ray of the right foot. On chart review, I was unable to find any podiatry notes. However patient did have x-rayof the left foot on 03/27 that showed amputation of 3rd and 4th proximal PIP joints. Amput ation of the first metatarsal phalangeal joint. Haziness at the surgical margins. Osteomyelitis cannot be excluded. Chart review, patient is on immunosuppressants including Inflectra and methotrexate. CBC without leukocytosis however this may be skewed due to his immunosuppressants. Patient has baseline anemia of 11.4. ESR unremarkable. BMP shows baseline renal insufficiency. Lactic acid unremarkable. CRP elevated at 30.6. X-ray of the left foot shows soft tissue swelling involving multiple toes. Similar appearance compared to previous x-ray. Recommends MRI for concern for osteomyelitis. Mildly displaced fracture of the fourth proximal phalanx. Giventhese findings, podiatry was contacted and patient was discussed with Dr. Freeman. Given patient is on immunosuppressants with previous historyof poor wound healing, recommended admission for IV antibiotics. I spoke with the patient andupdated him on the results and the plan. He confirmed understanding. Meropenemand vancomycin ordered for antibiotics due to his allergies. Patient was discussed with the hospitalist service who accepted admission. Impression: 1. Diabetic left foot wound with cellulitis 2. Chronic osteomyelitis 3. Immunosuppression Lab Data Labs: Laboratory Results - last 24 hr 04/15/25 15:55 WBC 5.9 RBC 3.22 L Hgb 11.4 L Hct 32.5 L MCV 100.9 H MCH 35.4 H MCHC 35.1 RDW Std Deviation 51.8 H RDW Coeff of Jaimee 14.3 Plt Count 200 MPV 10.8 Immature Gran % (Auto) 0.300 Neut % (Auto) 59.2 Lymph % (Auto) 21.9 [place] % (Auto) 12.1 H Eos % (Auto) 5.6 H Baso % (Auto) 0.9 Absolute Neuts (auto) 3.5 Absolute Lymphs (auto) 1.28 Nucleated RBC % 0 ESR 21 H Sodium 139 Potassium 3.9 Chloride 103 Carbon Dioxide 24.3 Anion Gap 12 BUN 26 H Creatinine 1.38 H Estim Creat Clear Calc 46.08 L Est GFR (MDRD) Non-Af 51 L BUN/Creatinine Ratio 19.1 Glucose 183 H Lactic Acid 1.6 Calcium 9.4 C-React Prot Ext Range 30.20 H Radiography Diagnostic Testing: Clinical Impression(s) from Imaging Studies Foot X-Ray 04/15/25 16:13 IMPRESSION: 1. Similar appearance of the left foot compared to radiographs on 03/27/2025, including amputation and soft tissue swelling involving multiple toes. Consider bone scan or MRI if there is concern for osteomyelitis. 2. Mildly displaced fracture of the 4th proximal phalanx. Reading Location: [id number] Discharge Plan Disposition Disposition: Acute Care Hospital [facility] Discharge Date/Time: 04/15/25 18:06 What to do if you have Problems For any increased pain, shortness of breath, bleeding, nausea or vomiting, chestpain, or any unexpected problems, contact your Primary Care Provider. Call [facility] ([phone]) or report tothe closest Emergency Room. Call 911 if necessary. 04/16/25 0144 Cosigner Signature (if applicable): CC: Dr. Zach Turnre MD ~ Signed [facility]06-02-2025 History and physical note Author Coco Pepe [facility] Note Date/Time April 15, 2025 6:11p m [facility] Medical Records Department [address] [place] [address] H&P Exam - Hospitalist 04/15/25 1720 MR#: [id number] Acct: [id number] Name: YESSI HATCH Rep #:[id number] : 1945 79 From: Coco Pepe MD PCP: Dr. Zach Turner MD Status:ADM IN Location: MS3 [id number] HPI - General General Date of Admission: 04/15/25 Date of Service: 04/15/25 Chief Complaint: Left foot pain and right HPI Narrative YESSI HATCH, is a 79 M with past medical history as For diabetes mellitus type 2, previous history of diabetic foot infections including osteomyelitis, paroxysmal A-fib on apixaban who presented to the emergency department with a 3-day history of redness swelling involving the left foot stump. Patient has history of osteomyelitis and had some residual doxycycline prescription from herprevious visit. Patient taking the doxycycline without much improvement. Patient did inform his merit system director Dr. Patrick Rojas who advised patient to to present to the emergency department. Imaging studies obtained demonstrated degenerative changes throughout the right foot with soft tissue swelling involving multiple toes. Patient was started on broad- spectrum antibiotic therapy admitted to regular nursing floor for further management [facility] Medical History Hypertension, well controlled Amputation toe Cataract Glaucoma CPAP (continuous positive airway pressure) dependence Sleep apnea Asthma Atrial fibrillation Nonhealing nonsurgical wound with fat layer exposed Essential hypertension RAJESH (obstructive sleep apnea) Ectopic atrial tachycardia Paroxysmal ventricular tachycardia Premature atrial contractions Cellulitis Psoriasis Arthritis Shortness of breath Hyperlipidemia Hypertension Premature ventricular contraction Supraventricular tachycardia Long-term use of high-risk medication Body mass index 31.0-31.9, adult Diabetes mellitus Secondary pulmonary arterial hypertension Methicillin susceptible Staphylococcus aureus infection Acute osteomyelitis involving ankle and foot Chronic osteomyelitis involving ankle and foot Home Medications ?Medication ?Instructions ?Recorded ?Last Taken ?Type finasteride 5 mg tablet 5 mg PO DAILY prostate 02/0204/15/25 History tamsulosin 0.4 mg capsule 0.4 mg PO QHS prostate 02/0204/14/25 History fluticasone propionate 50 2 spray NASAL DAILY PRN Nasa l 06/30/18 04/15/25 History mcg/actuation nasal Congestion spray,suspension methotrexate sodium 2.5 mg tablet 7.5 mg PO Q7D arthri tis 06/30/18 04/10/25 History pyridoxine (vitamin B6) 50 mg 100 mg PO QHS supplement 06/30/18 04/14/25 History tablet multivitamin with folic acid 400 1 tab PO DAILY supple ment 10/20/18 04/15/25 History mcg tablet oxybutynin chloride 5 mg 5 mg PO QHS bladder 10/20/18 04/14/25 History tablet,extended release 24 hr folic acid 1 mg tablet 4 mg PO DAILY supplement 04/15/25 History glucosamine HCl 1,500 mg tablet 1,500 mg PO BID supple mt 02/20/20 04/15/25 History infliximab-dyyb 100 mg intravenous 100 mg IV UD psoria tic arthritis 05/30/20 04/08/25 History solution (Inflectra) cyanocobalamin (vitamin B-12) 100 500 mcg PO DAILY sup plement 12/01/20 04/15/25 History mcg tablet amlodipine 2.5 mg tablet 2.5 mg PO DAILY #90 tabs 04/15/25 Rx metoprolol succinate 100 mg 100 mg PO BID bp/heart #18 0 tabs 04/10/24 04/15/25 Rx tablet,extended release 24 hr pravastatin 40 mg tablet 40 mg PO QHS cholesterol #90 tabs 04/10/24 04/14/25 Rx cholecalciferol (vitamin D3) 25 25 mcg PO DAILY supple ment 06/20/24 04/13/25 History mcg (1,000 unit) tablet ginkgo biloba leaf extract 60 mg 60 mg PO DAILY 04/15/25 History capsule glipizide 10 mg tablet 10 mg PO DAILY dm 06/20/24 0 04/15/25 History lisinopril 40 mg tablet 40 mg PO DAILY #90 tabs 01/0804/15/25 Rx furosemide 20 mg tablet (Lasix) 20 mg PO DAILY PRN tanner ma 03/08/25 04/12/25 History hydrochlorothiazide 12.5 mg capsule 12.5 mg PO QDAY 04/15/25 History vitamins A,C,D-mheb-ggwfri 4,296 1 cap PO QDAY 5 04/15/25 History mcg-226 mg-90 mg capsule (PreserVision AREDS) apixaban 5 mg tablet (Eliquis) 5 mg PO BID 04/15/25 History doxycycline hyclate 100 mg capsule 100 mg PO Q12H 01/0804/15/25 History lactulose 10 gram/15 mL oral 15 ml PO QHS 04/15/25 History solution (Enulose) multivitamin (Daily Multi-Vitamin 1 tab PO DAILY 04/1504/15/25 History tablet) Allergy/AdvReac Type Severity Reaction Status Date / Time cephalexin (From Keflex) Allergy Severe rash Verified 04/04/25 10:13 sulfamethoxazole (From Allergy Severe Rash Verified 04/04/25 10:13 Bactrim) trimethoprim (From Bactrim) Allergy Severe Rash Verified 04/04/25 10:13 Penicillins Allergy Rash Verified 04/04/25 10:13 doxycycline AdvReac Severe GI upset Verified 04/04/25 10:13 levofloxacin (From Levaquin) AdvReac Other Verified 04/04/25 10:13 Family History Father Cancer Prostate Mother Depression Uncle Myocardial infarction Son CVA (cerebral vascular accident) Surgical History History of bilateral cataract extraction History of foot surgery (~02/2023) excision of skin cancer History of hammer toe correction (09/26/20) History of partial amputation of toe History of hernia repair History of tonsillectomy and adenoidectomy Social History Smoking Status: Former smoker pack-years: 30 alcohol intake: current alcohol intake frequency: holidays/special occasions only substance use type: does not use caffeine: Yes Type: coffee Number of servings: 2 what type of physical activity do you participate in: running and weight training frequency: 1-2 times per week ROS ROS Narrative GENERAL: denies fever, chills, night sweats, weight loss, anorexia HEENT: denies headache, sinus congestion, or drainage, dysphagia RESPIRATORY: denies cough, sputum production, shortness of breath, dyspnea on exertion CARDIAC: denies chest pain, palpitations, orthopnea, PND GASTROINTESTINAL: denies abdominal pain, nausea, vomiting, melena, GENITOURINARY: denies dysuria, urgency, frequency, heamaturia EXTREMITY: denies swelling MUSCULOSKELETAL: Left foot swelling and erythema NEUROLOGIC: denies focal numbness, weakness, tingling HEMATOLOGIC: denies easy bruising and/or hemorrhage INTEGUMENT: denies rashes PSYCHIATRIC: denies suicidal or homicidal ideation Vital Signs Vital Signs Vital Signs: 04/15/25 15:13 04/15/25 15:15 04/15/25 16:15 Temperature 97.9 F 97.9 F 97.9 F Temperature Source Oral Oral Oral Pulse Rate 85 85 75 Respiratory Rate 16 16 17 Blood Pressure 143/80 H 143/80 H 128/81 H Blood Pressure Mean 101 101 96 Pulse Ox 99 99 100 Oxygen Delivery Method Room Air Room Air Room Air 04/15/25 17:00 Temperature 97.9 F Temperature Source Oral Pulse Rate 71 Respiratory Rate 10 L Blood Pressure 142/91 H Blood Pressure Mean 108 Pulse Ox 100 Oxygen Delivery Method Room Air Weight Weight: 90.356 kg Body Mass Index (BMI) 27.0 Physical Exam Narrative GENERAL: cooperative HEENT: Atraumatic; normocephalic EYES; Anicteric, Normal Conjunctiva NECK; supple, normal thyroid, RESPIRATORY: Diminished to auscultation CARDIOVASCULAR: Regular S1 S2, GI: soft, normoactive bowel sounds, : No Renal angle tenderness; EXTREMITIES: Amputation of previous phalanges involving the left foot with residual swelling and erythema and warmth MUSCULOSKELETAL: no muscle wasting NEURO: Awake; no lateralizing signs. SKIN: As discussed above PSYCH; Flat affect Results Lab / Micro Data 04/15/25 15:55 04/15/25 15:55 Labs: Laboratory Results - last 24 hr 04/15/25 15:55: WBC 5.9, RBC 3.22 L, Hgb 11.4 L, Hct 32.5 L, MCV 100.9 H, MCH 35.4 H, MCHC 35.1, RDW Std Deviation 51.8 H, RDW Coeff of Jaimee 14.3, Plt Count 200, MPV 10.8, Immature Gran % (Auto) 0.300, Neut % (Auto) 59.2, Lymph % (Auto) 21.9, [place] % (Auto) 12.1 H, Eos % (Auto) 5.6 H, Baso % (Auto) 0.9, Absolute Neuts (auto) 3.5, Absolute Lymphs (auto) 1.28, Nucleated RBC % 0, ESR 21 H, Sodium 139, Potassium 3.9, Chloride 103, Carbon Dioxide 24.3, Anion Gap 12, BUN 26 H, Creatinine 1.38 H, Estim Creat Clear Calc 46.08 L, Est GFR (MDRD) Non-Af 51 L, BUN/Creatinine Ratio 19.1, Glucose 183 H, Lactic Acid 1.6, Calcium 9.4, C-React Prot Ext Range 30.20 H Imaging Radiology Impression Foot X-Ray 04/15/25 16:13 IMPRESSION: 1. Similar appearance of the left foot compared to radiographs on 03/27/2025, including amputation and soft tissue swelling involving multiple toes. Consider bone scan or MRI if there is concern for osteomyelitis. 2. Mildly displaced fracture of the 4th proximal phalanx. Reading Location: [id number] Assessment & Plan Assessment/Plan (1) Diabetic foot ulcer associated with type 2 diabetes mellitus: QUALIFIERS: Diabetic foot ulcer location: toe Laterality: left Non-pressure ulcer stage: with bone involvement without evidence of necrosis Qualified Code(s): E11.621 - Type 2 diabetes mellitus with foot ulcer; L97.526 - 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 involvement without evidence of necrosis PLAN: Plan Patient is an 79-year-old gentleman presenting with erythema swelling and warmthinvolving the left foot 1. Diabetic foot infection involving the left foot. 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 Imaging studies obtained demonstrated soft tissue swelling involving multiple toes was however nonconclusive for osteomyelitis. Patient has been admitted to regular nursing floor started on broad-spectrum antibiotic therapy with meropenem and vancomycin. Ordered MRI to rule out osteomyelitis. Also ordered hemoglobin A1cESR as well as CRP 2. 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 Held patient oral agents. Started patient on long-acting insulin in addition to Accu-Cheks AC and at bedtime with sliding scale coverage. Patient was also placed on 1800 ADA diet 3. Paroxysmal A-fib ? Patient heart rate was relatively low. Will place patient on continuous telemetry monitoring. Patient is on metoprolol 100 mg twice daily will hold forheart rate less than 50 and blood pressure less than 100. Patient is on systemic anticoagulation apixaban did continue 4. Chronic kidney disease stage III ? Avoided nephrotoxic medications. Patient is on furosemide Lasix as well as HCTZ held 5. Essential hypertension ? Patient antihypertensives adjusted as above ordered hydralazine for systolic blood pressure greater than 160 6. Obstructive sleep apnea ? Consistent use of PAP therapy encouraged 7. 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 Patient is on methotrexate as well as infliximab held in view of patient infection 8. BPH with lower urinary obstructive symptoms - Patient treated with tamsulosin 9. Anemia ? Secondary to chronic disorder monitoring H&H and transfuse if patient becomes symptomatic or hemoglobin falls below 7 10. DVT prophylaxis ? Patient is on apixaban no need for additional measures Advance planning; did discuss with the patient and family (patient's ) regarding advanced directives as well as CODE STATUS. Did explain the various scenarios involved ( FULL CODE, DNR CCA, DNR CCA with no intubation, and DNR CC and what each meant) patient elected to remain full code with CPR and intubationif warranted. Order was placed. Time spent on discussion 17 minutes. Charges/Coding Multi Select Codes Visit Charges Visit Charges: 87116 Init Hosp L3 Hospitalists' Procedures Procedures: 27559 Advncd Care Plan 30 Min 04/15/25 1811 <Electronically signed by Coco Pepe MD> Cosigner Signature (if applicable): CC: Dr. Coco Pepe MD; Dr. Zach Turner MD~ Signed [facility] Work Phone: 1(470) 609-741706-02-2025 History and physical note [facility] Medical Records Department [address] [place] [id number] H&P Exam - Hospitalist 04/15/25 1720 MR#: [id number] Acct: [id number] Name: YESSI HATCH Rep #:[id number] : 1945 79 From: Coco Pepe MD PCP: Dr. Zach Turner MD Status:ADM IN Location: MS3 [id number] HPI - General General Date of Admission: 04/15/25 Date of Service: 04/15/25 Chief Complaint: Left foot pain and right HPI Narrative YESSI HATCH, is a 79 M with past medical history as For diabetes mellitus type 2, previous history of diabetic foot infections including osteomyelitis, paroxysmal A-fib on apixaban who presented to the emergency department with a 3- day history of redness swelling involving the left foot stump. Patient has history of osteomyelitis and had some residual doxycycline prescription from herpreviousvisit. Patient taking the doxycycline without much improvement. Patient did inform his merit system director Dr. Patrick Rojas who advised patient to to present to the emergency department. Imaging studies obtained demonstrated degenerative changes throughout the right foot with soft tissue swelling involving multiple toes. Patient was started on broad-spectrum antibiotic therapy admitted to regular nursing floor for further management [facility] Medical History Hypertension, well controlled Amputation toe Cataract Glaucoma CPAP (continuous positive airway pressure) dependence Sleep apnea Asthma Atrial fibrillation Nonhealing nonsurgical wound with fat layer exposed Essential hypertension RAJESH (obstructive sleep apnea) Ectopic atrial tachycardia Paroxysmal ventricular tachycardia Premature atrial contractions Cellulitis Psoriasis Arthritis Shortness of breath Hyperlipidemia Hypertension Premature ventricular contraction Supraventricular tachycardia Long-term use of high-risk medication Body mass index 31.0-31.9, adult Diabetes mellitus Secondary pulmonary arterial hypertension Methicillin susceptible Staphylococcus aureus infection Acute osteomyelitis involving ankle and foot Chronic osteomyelitis involving ankle and foot Home Medications ?Medication ?Instructions ?Recorded ?Last Taken ?Type finasteride 5 mg tablet 5 mg PO DAILY prostate 02/0204/15/25 History tamsulosin 0.4 mg capsule 0.4 mg PO QHS prostate 02/0204/14/25 History fluticasone propionate 50 2 spray NASAL DAILY PRN Nasa l 06/30/18 04/15/25 History mcg/actuation nasal Congestion spray,suspension methotrexate sodium 2.5 mg tablet 7.5 mg PO Q7D arthri tis 06/30/18 04/10/25 History pyridoxine (vitamin B6) 50 mg 100 mg PO QHS supplement 06/30/18 04/14/25 History tablet multivitamin with folic acid 400 1 tab PO DAILY supple ment 10/20/18 04/15/25 History mcg tablet oxybutynin chloride 5 mg 5 mg PO QHS bladder 10/20/18 04/14/25 History tablet,extended release 24 hr folic acid 1 mg tablet 4 mg PO DAILY supplement 04/15/25 History glucosamine HCl 1,500 mg tablet 1,500 mg PO BID supple mt 02/20/20 04/15/25 History infliximab-dyyb 100 mg intravenous 100 mg IV UD psoria tic arthritis 05/30/20 04/08/25 History solution (Inflectra) cyanocobalamin (vitamin B-12) 100 500 mcg PO DAILY sup plement 12/01/20 04/15/25 History mcg tablet amlodipine 2.5 mg tablet 2.5 mg PO DAILY #90 tabs 04/15/25 Rx metoprolol succinate 100 mg 100 mg PO BID bp/heart #18 0 tabs 04/10/24 04/15/25 Rx tablet,extended release 24 hr pravastatin 40 mg tablet 40 mg PO QHS cholesterol #90 tabs 04/10/24 04/14/25 Rx cholecalciferol (vitamin D3) 25 25 mcg PO DAILY supple ment 06/20/24 04/13/25 History mcg (1,000 unit) tablet ginkgo biloba leaf extract 60 mg 60 mg PO DAILY 04/15/25 History capsule glipizide 10 mg tablet 10 mg PO DAILY dm 06/20/24 0 04/15/25 History lisinopril 40 mg tablet 40 mg PO DAILY #90 tabs 01/0804/15/25 Rx furosemide 20 mg tablet (Lasix) 20 mg PO DAILY PRN tanner ma 03/08/25 04/12/25 History hydrochlorothiazide 12.5 mg capsule 12.5 mg PO QDAY 04/15/25 History vitamins A,C,M-lgeb-teubjg 4,296 1 cap PO QDAY 5 04/15/25 History mcg-226 mg-90 mg capsule (PreserVision AREDS) apixaban 5 mg tablet (Eliquis) 5 mg PO BID 04/15/25 History doxycycline hyclate 100 mg capsule 100 mg PO Q12H 01/0804/15/25 History lactulose 10 gram/15 mL oral 15 ml PO QHS 04/15/25 History solution (Enulose) multivitamin (Daily Multi-Vitamin 1 tab PO DAILY 04/1504/15/25 History tablet) Allergy/AdvReac Type Severity Reaction Status Date / Time cephalexin (From Keflex) Allergy Severe rash Verified 04/04/25 10:13 sulfamethoxazole (From Allergy Severe Rash Verified 04/04/25 10:13 Bactrim) trimethoprim (From Bactrim) Allergy Severe Rash Verified 04/04/25 10:13 Penicillins Allergy Rash Verified 04/04/25 10:13 doxycycline AdvReac Severe GI upset Verified 04/04/25 10:13 levofloxacin (From Levaquin) AdvReac Other Verified 04/04/25 10:13 Family History Father Cancer Prostate Mother Depression Uncle Myocardial infarction Son CVA (cerebral vascular accident) Surgical History History of bilateral cataract extraction History of foot surgery (~02/2023) excision of skin cancer History of hammer toe correction (09/26/20) History of partial amputation of toe History of hernia repair History of tonsillectomy and adenoidectomy Social History Smoking Status: Former smoker pack-years: 30 alcohol intake: current alcohol intake frequency: holidays/special occasions only substance use type: does not use caffeine: Yes Type: coffee Number of servings: 2 what type of physical activity do you participate in: running and weight training frequency: 1-2 times per week ROS ROS Narrative GENERAL: denies fever, chills, night sweats, weight loss, anorexia HEENT: denies headache, sinus congestion, or drainage, dysphagia RESPIRATORY: denies cough, sputum production, shortness of breath, dyspnea on exertion CARDIAC: denies chest pain, palpitations, orthopnea, PND GASTROINTESTINAL: denies abdominal pain, nausea, vomiting, melena, GENITOURINARY: denies dysuria, urgency, frequency, heamaturia EXTREMITY: denies swelling MUSCULOSKELETAL: Left foot swelling and erythema NEUROLOGIC: denies focal numbness, weakness, tingling HEMATOLOGIC: denies easy bruising and/or hemorrhage INTEGUMENT: denies rashes PSYCHIATRIC: denies suicidal or homicidal ideation Vital Signs Vital Signs Vital Signs: 04/15/25 15:13 04/15/25 15:15 04/15/25 16:15 Temperature 97.9 F 97.9 F 97.9 F Temperature Source Oral Oral Oral Pulse Rate 85 85 75 Respiratory Rate 16 16 17 Blood Pressure 143/80 H 143/80 H 128/81 H Blood Pressure Mean 101 101 96 Pulse Ox 99 99 100 Oxygen Delivery Method Room Air Room Air Room Air 04/15/25 17:00 Temperature 97.9 F Temperature Source Oral Pulse Rate 71 Respiratory Rate 10 L Blood Pressure 142/91 H Blood Pressure Mean 108 Pulse Ox 100 Oxygen Delivery Method Room Air Weight Weight: 90.356 kg Body Mass Index (BMI) 27.0 Physical Exam Narrative GENERAL: cooperative HEENT: Atraumatic; normocephalic EYES; Anicteric, Normal Conjunctiva NECK; supple, normal thyroid, RESPIRATORY: Diminished to auscultation CARDIOVASCULAR: Regular S1 S2, GI: soft, normoactive bowel sounds, : No Renal angle tenderness; EXTREMITIES: Amputation of previous phalanges involving the left foot with residual swelling and erythema and warmth MUSCULOSKELETAL: no muscle wasting NEURO: Awake; no lateralizing signs. SKIN: As discussed above PSYCH; Flat affect Results Lab / Micro Data 04/15/25 15:55 04/15/25 15:55 Labs: Laboratory Results - last 24 hr 04/15/25 15:55: WBC 5.9, RBC 3.22 L, Hgb 11.4 L, Hct 32.5 L, MCV 100.9 H, MCH 35.4 H, MCHC 35.1, RDW Std Deviation 51.8 H, RDW Coeff of Jaimee 14.3, Plt Count 200, MPV 10.8, Immature Gran % (Auto) 0.300, Neut % (Auto) 59.2, Lymph % (Auto) 21.9, [place] % (Auto) 12.1 H, Eos % (Auto) 5.6 H, Baso % (Auto) 0.9, Absolute Neuts (auto) 3.5, Absolute Lymphs (auto) 1.28, Nucleated RBC % 0, ESR 21 H, Sodium 139,Potassium 3.9, Chloride 103, Carbon Dioxide 24.3, Anion Gap 12, BUN 26 H, Creatinine 1.38 H, Estim Creat Clear Calc 46.08 L, Est GFR (MDRD) Non-Af 51 L, BUN/Creatinine Ratio 19.1, Glucose 183 H, Lactic Acid 1.6, Calcium 9.4, C- React Prot Ext Range 30.20 H Imaging Radiology Impression Foot X-Ray 04/15/25 16:13 IMPRESSION: 1. Similar appearance of the left foot compared to radiographs on 03/27/2025, including amputation and soft tissue swelling involving multiple toes. Consider bone scan or MRI if there is concern for osteomyelitis. 2. Mildly displaced fracture of the 4th proximal phalanx. Reading Location: [facility] Assessment & Plan Assessment/Plan (1) Diabetic foot ulcer associated with type 2 diabetes mellitus: QUALIFIERS: Diabetic foot ulcer location: toe Laterality: left Non-pressure ulcer stage: with bone involvement without evidence of necrosis Qualified Code(s): E11.621 - Type 2 diabetes mellitus with foot ulcer; L97.526 - 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 involvement without evidence of necrosis PLAN: Plan Patient is an 79-year-old gentleman presenting with erythema swelling and warmthinvolving the left foot 1. Diabetic foot infection involving the left foot. Patient has previous history of osteomyelitis with previous amputation of the phalanges at the metatarsophalangeal joint of the great toe, and at the proximalinterphalangeal joints of the 3rd and 4thtoes. Imaging studies obtained demonstrated soft tissue swelling involving multiple toes was however nonconclusive for osteomyelitis. Patient has been admitted to regular nursing floor started on broad-spectrum antibiotic therapy with meropenem and vancomycin. Ordered MRI to rule out osteomyelitis.Also ordered hemoglobin A1cESR as well as CRP 2. 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 Held patient oral agents. Started patient on long-acting insulin in addition to Accu-Cheks AC andat bedtime with sliding scale coverage. Patient was also placed on 1800 ADA diet 3. Paroxysmal A-fib ? Patient heart rate was relatively low. Will place patient on continuous telemetry monitoring. Patient is on metoprolol 100 mg twice daily will hold forheart rate less than 50 and blood pressure less than 100. Patient is on systemic anticoagulation apixaban did continue 4. Chronic kidney disease stage III ? Avoided nephrotoxic medications. Patient is on furosemide Lasix as well as HCTZ held 5. Essential hypertension ? Patient antihypertensives adjusted as above ordered hydralazine for systolic blood pressure greater than 160 6. Obstructive sleep apnea ? Consistent use of PAP therapy encouraged 7. 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 Patient is on methotrexate as well as infliximab held in view of patient infection 8. BPH with lower urinary obstructive symptoms - Patient treated with tamsulosin 9. Anemia ? Secondary to chronic disorder monitoring H&H and transfuse if patient becomes symptomatic or hemoglobin falls below 7 10. DVT prophylaxis ? Patient is on apixaban no need for additional measures Advance planning; did discuss with the patient and family (patient's ) regarding advanced directives as well as CODE STATUS. Did explain the various scenarios involved ( FULL CODE, DNR CCA, DNR CCA with no intubation, and DNR CC and what each meant) patient elected to remain full code with CPR and intubationif warranted. Order was placed. Time spent on discussion 17 minutes. Charges/Coding Multi Select Codes Visit Charges Visit Charges: 24019 Init Hosp L3 Hospitalists' Procedures Procedures: 32648 Advncd Care Plan 30 Min 04/15/25 1811 Cosigner Signature (if applicable): CC: Dr. Coco Pepe MD; Dr. Zach Turner MD~ Signed [facility]06-02-2025 Radiology Diagnostic study note [facility] Imaging Services [address] [place], [place] [address] Foot min 3 Views MR#: [id number] Acct: [id number] Name: YESSI HATCH Rep #: [id number] : 1945 M 79 From: Meka Cabrales MD PCP: Dr. Zach Turner MD Status: REG ER Study:Foot min 3 Views Date of Exam: 01/08 Exam# [id number] Ordering Dr: Edgar Durham DO PROCEDURE: FOOT MIN 3 VIEWS 04/15/2025 REASON FOR EXAM: FOURTH TOE WOUND TECHNIQUE: 3 views of the left foot. COMPARISON: Left foot radiographs 03/27/2020 FINDINGS: There is amputation throughout the phalanges, at the metatarsophalangeal joint of the great toe, and at the proximal interphalangeal joints of the 3rd and 4th toes. Mildly displaced fracture through the 4th proximal phalanx. Soft tissue swelling throughout the foot, predominantly involving the toes. Plantar heel spur. Degenerative changes throughout the foot. RAD/Foot min 3 Views IMPRESSION: 1. Similar appearance of the left foot compared to radiographs on 03/27/2025, including amputation and soft tissue swelling involving multiple toes. Consider bone scan or MRI if there is concern for osteomyelitis. 2. Mildly displaced fracture of the 4th proximal phalanx. Reading Location: [id number] CC: Dr. Edgar Gudino DO; Dr. Zach Turner MD ~ Program Paraprofessional: Signed [facility]05-14-2025 Radiology Diagnostic study note [facility] Imaging Services [address] [place], [place] [address] Foot min 3 Views MR#: [id number] Acct: [id number] Name: YESSI HATCH Rep #: [id number] : 1945 M 79 From: Darling Lind MD PCP: Dr. Zach Turner MD Status: REG CLI Study:Foot min 3 Views Date of Exam: Exam# [id number] Ordering Dr: Torin Rojas DPM EXAM: XR Left Foot Complete, 3 or More Views CLINICAL INDICATION: PAIN, ULCER TECHNIQUE: Frontal, lateral and oblique views of the left foot. COMPARISON: No relevant prior studies available. FINDINGS: BONES/JOINTS: Amputation of the 3rd and 4th proximal PIP joints. Amputation of the 1st metatarsophalangeal joint. Haziness of the surgical margins. Osteomyelitis can not be excluded. No acute fracture. No dislocation. SOFT TISSUES: Soft tissue swelling. No radiopaque foreign body. RAD/Foot min 3 Views IMPRESSION: Amputation of the 3rd and 4th proximal PIP joints. Amputation of the 1st metatarsophalangeal joint.Haziness of the surgical margins. Osteomyelitis can not be excluded. Reading Location: [id number] CC: DPM Dr. Patrick Rojas; Dr. Zach Turner MD ~ Program Paraprofessional: Signed [facility]04-25-2025 Evaluation note* Diagnosis Onset Date Resolution Status Admit Date Atrial fibrillation acute March 08, 2025 11:13am Chronic kidney disease chronic Ap ril 2024 11:13am Essential hypertension chronic Ap ril 2024 11:13am Hyperlipidemia chronic February 11:13am Cellulitis of left foot acute J une 2024 5:21pm Cellulitis of left lower limb acute April 15, 2025 5:21pm Diabetes mellitus with diabe tic polyneuropathy acute April 15, 2025 5 :21pm Diabetic infection of left foot acut e April 15, 2025 5:21pm Chronic kidney disease chronic Ju ne 2024 5:21pm Diabetic foot ulcer associat ed with type 2 diabetes mellitus chronic Ju ne 2024 5:21pm Non-pressure chronic ulcer o f other part of left foot with fat layer exposed chronic April 15, 2025 5 :21pm 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 chronic April 15, 2025 5:21pm [facility] Work Phone: 1(701) 686-728804-17-2025 History and physical note* Christina Cartagena MD - 02/28/2025 10:30 AM EDT I saw Yessi Hatch in renal clinics at [facility] in [place] on 02/28/2025. Assessment/Plan: 79 y/o male with history of DMII, prostate cancer and HTN is here for CKD care 1) CKD IIIA Cr 1.64 Will get UA Will get renal panel to ensure stability. Will get renal US Continue kerendia Will consult pharmacy. 2) HTN SBP 110s Continue with lisinopril Continue with metoprolol Continue with Hydrochlorothiazide 3) Chronic normocytic anemia H and H 11.9 and 33.8 Will get CBC Reason for Consultation: CKD III Consulting Physician: Pablo History of Present Illness: Yessi Hatch is a 79 y.o. male who we have been consulted to see on 02/28/2025. 79 y/o male with history of DMII and HTN is here for CKD care DMII x decades Poor diet and hydration No NSAID No other complaint. Past Medical History: Diagnosis Date Diabetes mellitus Hypertension Prostate cancer Psoriasis Skin cancer (Not in a hospital admission) Scheduled Meds: IV Infusions: Allergies Allergen Reactions Cephalexin Other reaction(s): rash Sulfamethoxazole Other reaction(s): Rash Trimethoprim Other reaction(s): Rash Penicillins No family history on file. Social History Tobacco Use Smoking status: Former Smokeless tobacco: Never Substance Use Topics Alcohol use: No Drug use: Never Review of Systems: General ROS: Otherwise remainder of 14-point ROS is negative HEENT: No complaints of headache change in vision, nose or ear No sinus issues Cadiovascular: No chest pain, no diaphoresis, no palpitation Gastrointestinal: No complaints of dysphagia, nausea, vomiting. No change in stool pattern, consistency, or color. No epigastric pain Genitourinary: No complaints of dysuria, nocturia, polyuria, or hematuria. Pulmonary: No cough, no SOB, no wheezing Musculoskeletal: No arthralgias, muscle aches, or pains. Neurological: No weakness, numbness, or incoordination Integumentary: No rashes, itching. No hair or nail changes Psychiatric: No anxiety, depression, or sleep disturbance Hematologic / lymphatic: No easy bruising or bleeding. No enlarged lymph nodes. Allergic / immunologic: No hay fever/seasonal nasal congestion. No food/medication reactions Physical Examination: Vital Signs @VSRANGES@ No intake/output data recorded. @IOTHISSHIFT@ BP 110/58 (BP Location: Right arm, BP Position: Sitting) Wt 82.4 kg (181 lb 9.6 oz) BMI 24.63 kg/m Smoking Status Former General: Alert, oriented and cooperative. NAD Skin: Normal in appearance, texture, and temperature HEENT: Scalp normal. Pupils equally round,reactive to light and accommodation, sclera and conjunctiva normal. Nasal mucosa normal. Oral pharynx is normal without erythema or exudate. Tongue and gums are normal. Neck: Easily moveable without resistance, no abnormal adenopathy in the cervical or supraclavicular areas. Trachea is midline and thyroid gland is normal without masses. Carotid artery upstroke is normal bilaterally without bruits. CV: RRR, nl S1 and S2, no m/g/r Lungs: Lungs are clear to auscultation and percussion bilaterally No wheezing, no crackle. Normal effort. Abdomen: The abdomen is symmetrical without distention; bowel sounds are normal in quality and intensity in all areas. No masses or splenomegaly are noted; noo hepatomegaly Extremities: No cyanosis, clubbing, or edema are noted. Peripheral pulses in the femoral, popliteal, anterior tibial, dorsalis pedis,brachial, and radial areas are normal. Nodes: No palpable nodes in the cervical, supraclavicular, axillary or inguinal areas. Neurological: Cranial nerves II-XII are normal. Motor and sensory examination of the upper and lower extremities is normal. Gait and cerebellar function are also normal. Reflexes are normal and symmetrical bilaterally in both extremities. Relevant Data: Lab Results Component Value Date CREATSERUM 0.98 10/08/2019 No results found for: CALCIUM, PHOSPHORUS, PHOSPHORUSTI Lab Results Component Value Date WBC 7.5 10/08/2019 HGB 13.8 (L) 10/08/2019 HCT 41.3 (L) 10/08/2019 PLATELET 215 10/08/2019 MCV 93.4 10/08/2019 No results found for: SPGRVTYUR, SPECGRAVUR, GLUCUR, GLUCOSEURINE, BILIRUBINURI, KETONESURINE, BLOODURINE, PHURINE, NITRITEURINE, NITRITESURIN, LEUKOCESTUR, WBCURINE, RBCURINE, BACTERIAURIN Lab Results Component Value Date CREATSERUM 0.98 10/08/2019 CREATSERUM 1.2 09/25/2018 CREATSERUM 1.1 06/01/2017 [facility]04-17-2025 History and physical note* Christina Cartagena MD - 02/28/2025 10:30 AM EDT I saw Yessi Hatch in renal clinics at [facility] in [place] on 02/28/2025. Assessment/Plan: 79 y/o male with history of DMII, prostate cancer and HTN is here for CKD care 1) CKD IIIA Cr 1.64 Will get UA Will get renal panel to ensure stability. Will get renal US Continue kerendia Will consult pharmacy. 2) HTN SBP 110s Continue with lisinopril Continue with metoprolol Continue with Hydrochlorothiazide 3) Chronic normocytic anemia H and H 11.9 and 33.8 Will get CBC Reason for Consultation: CKD III Consulting Physician: Pablo History of Present Illness: Yessi Hatch is a 79 y.o. male who we have been consulted to see on 02/28/2025. 79 y/o male with history of DMII and HTN is here for CKD care DMII x decades Poor diet and hydration No NSAID No other complaint. Past Medical History: Diagnosis Date Diabetes mellitus Hypertension Prostate cancer Psoriasis Skin cancer (Not in a hospital admission) Scheduled Meds: IV Infusions: Allergies Allergen Reactions Cephalexin Other reaction(s): rash Sulfamethoxazole Other reaction(s): Rash Trimethoprim Other reaction(s): Rash Penicillins No family history on file. Social History Tobacco Use Smoking status: Former Smokeless tobacco: Never Substance Use Topics Alcohol use: No Drug use: Never Review of Systems: General ROS: Otherwise remainder of 14-point ROS is negative HEENT: No complaints of headache change in vision, nose or ear No sinus issues Cadiovascular: No chest pain, no diaphoresis, no palpitation Gastrointestinal: No complaints of dysphagia, nausea, vomiting. No change in stool pattern, consistency, or color. No epigastric pain Genitourinary: No complaints of dysuria, nocturia, polyuria, or hematuria. Pulmonary: No cough, no SOB, no wheezing Musculoskeletal: No arthralgias, muscle aches, or pains. Neurological: No weakness, numbness, or incoordination Integumentary: No rashes, itching. No hair or nail changes Psychiatric: No anxiety, depression, or sleep disturbance Hematologic / lymphatic: No easy bruising or bleeding. No enlarged lymph nodes. Allergic / immunologic: No hay fever/seasonal nasal congestion. No food/medication reactions Physical Examination: Vital Signs @VSRANGES@ No intake/output data recorded. @IOTHISSHIFT@ BP 110/58 (BP Location: Right arm, BP Position: Sitting) Wt 82.4 kg (181 lb 9.6 oz) BMI 24.63 kg/m Smoking Status Former General: Alert, oriented and cooperative. NAD Skin: Normal in appearance, texture, and temperature HEENT: Scalp normal. Pupils equally round,reactive to light and accommodation, sclera and conjunctiva normal. Nasal mucosa normal. Oral pharynx is normal without erythema or exudate. Tongue and gums are normal. Neck: Easily moveable without resistance, no abnormal adenopathy in the cervical or supraclavicular areas. Trachea is midline and thyroid gland is normal without masses. Carotid artery upstroke is normal bilaterally without bruits. CV: RRR, nl S1 and S2, no m/g/r Lungs: Lungs are clear to auscultation and percussion bilaterally No wheezing, no crackle. Normal effort. Abdomen: The abdomen is symmetrical without distention; bowel sounds are normal in quality and intensity in all areas. No masses or splenomegaly are noted; noo hepatomegaly Extremities: No cyanosis, clubbing, or edema are noted. Peripheral pulses in the femoral, popliteal, anterior tibial, dorsalis pedis,brachial, and radial areas are normal. Nodes: No palpable nodes in the cervical, supraclavicular, axillary or inguinal areas. Neurological: Cranial nerves II-XII are normal. Motor and sensory examination of the upper and lower extremities is normal. Gait and cerebellar function are also normal. Reflexes are normal and symmetrical bilaterally in both extremities. Relevant Data: Lab Results Component Value Date CREATSERUM 0.98 10/08/2019 No results found for: CALCIUM, PHOSPHORUS, PHOSPHORUSTI Lab Results Component Value Date WBC 7.5 10/08/2019 HGB 13.8 (L) 10/08/2019 HCT 41.3 (L) 10/08/2019 PLATELET 215 10/08/2019 MCV 93.4 10/08/2019 No results found for: SPGRVTYUR, SPECGRAVUR, GLUCUR, GLUCOSEURINE, BILIRUBINURI, KETONESURINE, BLOODURINE, PHURINE, NITRITEURINE, NITRITESURIN, LEUKOCESTUR, WBCURINE, RBCURINE, BACTERIAURIN Lab Results Component Value Date CREATSERUM 0.98 10/08/2019 CREATSERUM 1.2 09/25/2018 CREATSERUM 1.1 06/01/2017 documented in this [facility]03-14-2025 History of Present illness Narrative* Coco Shah Jr., DO - 01/25/2025 12:00 PM EDT Images from the original note were not included. Subjective History of Present Illness Patient started Humira 08/09/16. Humira was helping and not bothering him. Patient lost financial assistance and is now 2 expensive. Patient started Generic remicade in 03/2018. Remicade has been helping and not bothering him. Inflectra is 8 mg/kg every 6 weeks. Presence of Pain: reports pain/discomfort Select Pain Scale: DVPRS (Defense and Veterans Pain Rating Scale) (Adult- Cognitively Intact) DVPRS: Rest: 3- mild pain Select Pain Scale: DVPRS (Defense and Veterans Pain Rating Scale) (Adult- Cognitively Intact). Totaltime spent in this encounter was 40 minutes. Psoriasis/Rash is better. Glaucoma is the same. Claudication continues. Balance is an issue now. Hesitancy and nocturia continue. Joint pain is knees and neck. Patient is here for 6 month Follow-up. Patient states is having pain in the knees constantly. Having issues with balance. Prednisone 3 times since last seen. For rash and joint pain. I have beentold that prednisone is a high risk medication. Last took prednisone 3 months ago. I have been toldthat patient is on a high risk medication as it either treats cancer or requires blood work every 2-3 months. Patient states he got blood work 11/2024 and we will try to track that down. I have been told that Tramadol is a high risk medication. Objective Review of Systems Review of Systems Constitutional: Negative. Skin: Psoriasis HENT: Decreased hearing Eyes: Glaucoma/Cataract S/P surgery Cardiovascular: Positive for claudication. A fib Respiratory: Negative. Gastrointestinal: Negative. Breast: Negative. Genitourinary: Positive for hesitancy. BPH Prostate cancer Nocturia times one. Musculoskeletal: Positive for joint pain. Neck pain Neurological: Poor Balance Psychiatric: Negative. Allergy/Immunology: Negative. Lymph/Heme: Negative. Endocrine: Negative. Physical Exam Blood pressure 110/60, height 1.829 m (6'), weight 84.8 kg (187 lb). Physical Exam Vitals and nursing note reviewed. Constitutional: Appearance: Normal appearance. HENT: Head: Normocephalic and atraumatic. Comments: Male pattern alopecia Right Ear: Decreased hearing Left Ear: Decreased hearing with hearing aid Nose: Nose normal. Mouth/Throat: Mouth: Mucous membranes [...] soft. Comments: obese Musculoskeletal: Right shoulder: Decreased ROM Left shoulder: Decreased ROM. Right upper arm: Normal. Left upper arm: [...] in scalp -imporved Also now arms. - improved. Eccymosis and hyprpigmentation B/L forearms and wrists and hands Neurological: Mental Status: He is alert and oriented to person, place, and time. Cranial Nerves: Cranial nerves 2-12 are intact. Sensory: Sensation is intact. Motor: Decreased foreign clerk strength both hands Psychiatric: Mood and Affect: Mood and affect normal. Behavior: Behavior normal. Thought Content: Thought content normal. Cognition and Memory: Memory normal. Judgment: Judgment normal. Neurological Exam Mental Status Alert. Cranial Nerves CN III, IV, : Extraocular movements intact bilaterally. Extraocular movements intact bilaterally.Pupils equal round and reactive to light bilaterally. Motor Strength is 5/5 throughout all four extremities. Assessment and Plan Encounter Diagnoses Name Primary? 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 Seborrheic keratosis Seborrheic eczema Pustulosis palmaris et plantaris Psoriasis Photoaged skin Other skin changes due to chronic exposure to nonionizing radiation Eczema, unspecified type Asteatosis cutis Actinic keratosis Other proteinuria Other care home (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 On statin therapy 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, intermodal dispatcher, current use Nocturia Long-term current use of high risk medication other than anticoagulant 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 Infliximab (Remicade) long-term use History of osteomyelitis History of malignant neoplasm of skin Difficulty in urination Current use of care home anticoagulation Abnormal renal function test Psoriatic arthritis mutilans 1. Patient stopped Humira as no longer [...] has healed. 7. ESR was normal at 3 and still is at 2 8. Inflectra to 8 mg / kg IV every 6 weeks 9. Lab on or about 02/12/2025 and every 3 months thereafter 10. Patient is taking Vit D3 11. Patient told he could take OTC Tylenol 12. Call if need Rx's 13. . L ankle surgery by podiatry 09/26/[address] Johnson for posterior tibial tendon tear - podiatry. S/P L midfoot amputation for infection. 14. Uric acid was normal at 5.9 15. CRAFT CENTER DIRECTOR was elevated at 1.42 with GFR of 51 and still is at 26/1.4 with GFR of 52 16. Derm F/U per Dr. Joe malloy 17. Stop Aleve 18. Optho F/U per Dr. Chan. 19. 90 day supply on medications 20. 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 side effects of prednisone gone over with the patient 21. Hgb was low at 12.7 and still is at 11.4 22. UA shows no blood and 30 mg/dl Protein 23. Rec: Nephro eval and Follow-up 24. At patient' request will set up with Dr. Cartagena 25. Follow-up with me in 6 months 26. Check Urine 27. Check OARRS 28. Sign pain agreement 29. Rx given for Tramadol 50 mg 1-2 pills every 6 hours for pain documented in this [facility]02-26-2025 Evaluation note* Diagnosis Onset Date Resolution Status Admit Date Raynauds phenomenon acute Febru 2024 9:21am [facility] Work Phone: 1(157) 623-648502-26-2025 Evaluation note* Diagnosis Onset Date Resolution Status Admit Date Raynauds phenomenon acute Febru 2024 9:21am Atrial fibrillation acute March 08, 2025 11:13am Chronic kidney disease chronic Ap ril 2024 11:13am Essential hypertension chronic Ap ril 2024 11:13am Hyperlipidemia chronic February 11:13am [facility] Work Phone: 1(867) 161-950202-26-2025 Evaluation note* Diagnosis Onset Date Resolution Status Admit Date Raynauds phenomenon acute Febru 2024 9:21am Atrial fibrillation acute March 08, 2025 11:13am Chronic kidney disease chronic Ap ril 2024 11:13am Essential hypertension chronic Ap ril 2024 11:13am Hyperlipidemia chronic February 11:13am Cellulitis of left foot acute J 2024 5:21pm Cellulitis of left lower limb acute April 15, 2025 5:21pm Diabetes mellitus with diabe tic polyneuropathy acute April 15, 2025 5 :21pm Diabetic infection of left foot acut e April 15, 2025 5:21pm Chronic kidney disease chronic Ju ne 2024 5:21pm 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 DATE OF SERVICE: 10/31/2024 PATIENT NAME: Yessi Hatch : 1945 AGE: 79 y.o. CLINIC NUMBER: [id number] Visit type: Established patient Chief Complaint Patient presents with Actinic Keratosis EVAN 07/11/[address] Moore (AT) Subjective HISTORY OF PRESENT ILLNESS: This is a 79 y.o. male who presents for a follow up of actinic keratoses located on the scalp, face and neck; last seen 07/11/2024. At this visit patient was prescribed efudex cream to apply BID x 6 weeks. Admits redness, roughness, flaking, itching to the scalp and posterior neck. Patient unsure if the areas have resolved. 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 Villarreal on 08/15/2024. History of pacemaker/ defibrillator? No. History of HIV/ Hep C? No. Allergies to Lidocaine, Epinephrine, Latex or Adhesive? No. 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 Patient does use additional sun protection measures. Review of Systems Orders Placed This Encounter Medications triamcinolone (Kenalog) 0.1 % ointment Sig: Apply to affected areas BID x 2 weeks Stop using when clear. Repeat as needed for flares. Do not use on face, armpits, groin. Dispense: 454.6 g Refill: 1 There were no vitals filed for this visit. PHYSICAL EXAM GENERAL APPEARANCE: alert & oriented x 3, pleasant. Well developed, well nourished. PSYCH: appropriate mood and affect DERMATOLOGY: (all measurements are in cm, unless otherwise noted) 1. Actinic keratoses (10) Left Forehead, Left Parotid Area, Left Shinto, Left Temporal Scalp, Left Zygomatic Area, Right Forehead, Right Parotid Area, Right Shinto, Right Temporal Scalp, Right Zygomatic Area Widespread red, scaly macules [x]Chronic []Acute []Stable [x]Flaring/Exacerbation Patient educated on actinic keratosis and the possibility of transformation into SCC. Treatment options are discussed with risks and benefits reviewed. Patient is agreeable to start treatment with Efudex (fluorouracil) . Rx: Efudex (fluorouracil) Cream Apply a very thin layer to the sides of the face twice daily x 3 weeks. Patient thoroughly educated about treatment with Efudex, including risks, benefits and detailed application instructions. The severity of your reaction to this medication cannot be predicted. It is normal to have some redness/ irritation and crusting, but to stop treatment if patient develops any pain, open sores, weeping, oozing or ulceration. If any issues with treatment, stop medication and contact office. The skin must be protected from sun exposure; use clothing, sunscreen, hats, etc. Apply 15-20 minutes before any other creams or makeup. Apply at least 1 hour before bedtime in order formedication to soak in. Do not get into eyes. Wash hands thoroughly after application. Related Medications fluorouracil (Efudex) 5 % cream Apply a thin layer to affected areas bid x 6 weeks 2. Stasis dermatitis Left Lower Leg - Anterior Pt. Has pronounced swelling of the bilateral lower legs. Eczematous patch of the left montanez [x]Chronic []Acute []Stable [x]Flaring/Exacerbation Educated and reassured. Treatment options, risks, benefits, and expectations reviewed. Start: - Triamcinolone 0.1% ointment- Apply to affected areas BID x 2 weeks Stop using when clear. Repeat as needed for flares. Do not use on face, armpits, groin Risks associated with intermodal dispatcher topical steroid use reviewed in detail. Patient was advised that topical steroid is being used for short term relief and not as maintenance. Overuse of topical steroids can result in permanent skin thinning/atrophy, skin discoloration, unwanted hair growth, acne and/or stretch chi/striae. Educated and reassured. Advised patient to use compression stockings which can help alleviate symptoms and prevent worsening of the swelling and itching. Leg elevation also helps to temporarily relieve symptoms. Patient is going to start Lasix tomorrow, as prescribed by his PCP triamcinolone (Kenalog) 0.1 % ointment - Left Lower Leg - Anterior Apply to affected areas BID x 2 weeks Stop using when clear. Repeat as needed for flares. Do not use on face, armpits, groin. Follow up for February-AK f/u. Georgina Moore MD 10/31/24 10:46 AM REFERRING MD: documented in this [facility]09-12-2024 Telephone encounter Note* Telephone Encounter - Courtney Shoemaker LPN - 07/26/2024 5:22 PM EDT Patient scheduled with DSC on 08/15/2024 at 1:15 pm. [id number] Miscellaneous Notes* Telephone Encounter - Courtney Shoemaker LPN - 07/26/2024 5:22 PM EDT Patient scheduled with DSC on 08/15/2024 at 1:15 pm. * Telephone Encounter - Shala Vallejo MA - 07/23/2024 10:[address] Moore: Please let the patient/his know that the lesion biopsied from his ear is a skin cancer that will require a further outpatient surgery to make sure all of the 'roots' are gone and that it does not recur. Please help him get referred to a Moh's surgeon to have this lesion taken care of. I will see him at his follow-up appointment but he is welcome to call at any time with any questions or concerns. Called and spoke with pt-Per Dr. Moore, advised him of all of the above. I then let him know I wouldfax over a referral to Dr. Khan office, and they should contact him directly to schedule. I then provided pt with Dr. Khan name and phone number. Pt educated and verbalized understanding. * Telephone Encounter - Shala Vallejo MA - 07/20/2024 9:03 AM EDT Called and LMOM for pt-Pt to return call. * Telephone Encounter - Charu Wolfe RN - 07/19/2024 5:23 PM EDT Patient left voicemail on nurse line requesting a call back for his recent biopsy results. He states he has other questions as well. * Telephone Encounter - Shala Vallejo MA - 07/18/2024 4:57 PM EDT Called and LMOM for pt-Pt to return call. * Telephone Encounter - Georgina Moore MD - 07/17/2024 10:31 PM EDT Please refer the patient to a Moh's surgeon to have the lesion of his left ear treated by Moh's. documented in this [facility]09-09-2024 Telephone encounter Note* Telephone Encounter - Shala Vallejo MA - 07/23/2024 10:[address] Moore: Please let the patient/his know that the lesion biopsied from his ear is a skin cancer that will require a further outpatient surgery to make sure all of the 'roots' are gone and that it does not recur. Please help him get referred to a Moh's surgeon to have this lesion taken care of. I will see him at his follow-up appointment but he is welcome to call at any time with any questions or concerns. Called and spoke with pt-Per Dr. Moore, advised him of all of the above. I then let him know I wouldfax over a referral to Dr. Khan office, and they should contact him directly to schedule. I then provided pt with Dr. Khan name and phone number. Pt educated and verbalized understanding. [id number] Telephone encounter Note* Telephone Encounter - Shala Vallejo MA - 07/20/2024 9:03 AM EDT Called and LMOM for pt-Pt to return call. [id number] Telephone encounter Note* Telephone Encounter - Charu Wolfe RN - 07/19/2024 5:23 PM EDT Patient left voicemail on nurse line requesting a call back for his recent biopsy results. He states he has other questions as well. [id number] Telephone encounter Note* Telephone Encounter - Shala Vallejo MA - 07/18/2024 4:57 PM EDT Called and LMOM for pt-Pt to return call. [id number] Telephone encounter Note* Telephone Encounter - Georgina Moore MD - 07/17/2024 10:31 PM EDT Please refer the patient to a Moh's surgeon to have the lesion of his left ear treated by Moh's. [id number] History of Present illness Narrative* Georgina Moore MD - 07/11/2024 12:45 PM EDT Images from the original note were not included. DATE OF SERVICE: 07/11/2024 PATIENT NAME: Yessi Hatch : 1945 AGE: 79 y.o. 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 male who presents for evaluation of spots on the scalp, face, neck and L ear x over 1 year. Pt states the lesions are scaly and bleed at time. Pt admits to picking at the lesion on the ear. Pt h/o numerous BCC and SCC. He was seeing a Manager Of Operations in [place] at [facility] but he retired a few years ago. Pt. Has had at least four surgeries for skin cancer. He has used fluorouracil. He had roya light treatment and this was painful for a week. Pt has seen numerous Dermatologists in the past. No personal h/o Melanoma. No f/h Melanoma. Pt has psoriatic arthritis and is on Inflectra and methotrexate x several years. His joint pain if better. He sees Dr. Shah in [place] twice a year. History of pacemaker/ defibrillator? No History of HIV/ Hep C? No Allergies to Lidocaine, Epinephrine, Latex or Adhesive? 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 Patient does use additional sun protection measures. REVIEW OF SYSTEMS: General/Constitutional Feels well; denies h/o fatigue, weight change, night sweats, fevers or chills. Lymphatic Denies swollen lymph nodes. Dermatologic As per HPI; denies new rashes, itching, hair loss, skin or nail changes. There were no vitals filed for this visit. GENERAL APPEARANCE:?Alert & oriented x3, pleasant. Well developed, well nourished. PSYCH: appropriate mood and affect 1. Neoplasm of uncertain behavior of skin Left [place] 1.5cm hemorrhagic nodule Skin Biopsy Type of biopsy: tangential Informed consent: discussed and consent obtained Timeout: patient name, date of , surgical site, and procedure verified Anesthesia: the lesion was anesthetized in a standard fashion Anesthetic: 1% lidocaine w/ epinephrine 1-100,000 buffered w/ 8.4% NaHCO3 Instrument used: DermaBlade Outcome: patient tolerated procedure well Post-procedure details: wound care instructions given Specimen A - Tissue exam Differential Diagnosis: BCC vs SCC Check Margins: No Biopsy recommended. Patient expresses understanding and is in agreement with the plan. Biopsy (x1) obtained today. Patient educated that we will call with the biopsy results within 2 weeks. Care instructions reviewed and written instructions provided to patient. 2. Actinic keratoses (3) Head - Anterior (Face), Neck - Anterior, Scalp Crusted papules [x]Chronic []Acute []Stable [x]Flaring/Exacerbation Patient educated on actinic keratosis and the possibility of transformation into SCC. Treatment options are discussed with risks and benefits reviewed. Patient is agreeable to start treatment with Efudex (fluorouracil) Rx: Efudex (fluorouracil) Cream Apply a very thin layer to the scalp, face and neck twice daily x 6 weeks. (Treating in sections) Patient thoroughly educated about treatment with Efudex, including risks, benefits and detailed application instructions. The severity of your reaction to this medication cannot be predicted. It is normal to have some redness/ irritation and crusting, but to stop treatment if patient develops any pain, open sores, weeping, oozing or ulceration. If any issues with treatment, stop medication and contact office. The skin must be protected from sun exposure; use clothing, sunscreen, hats, etc. Apply 15-20 minutes before any other creams or makeup. Apply at least 1 hour before bedtime in order formedication to soak in. Do not get into eyes. Wash hands thoroughly after application. fluorouracil (Efudex) 5 % cream - Head - Anterior (Face), Neck - Anterior, Scalp Apply a thin layer to affected areas bid x 6 weeks Orders Placed This Encounter Medications fluorouracil (Efudex) 5 % cream Sig: Apply a thin layer to affected areas bid x 6 weeks Dispense: 120 g Refill: 3 Follow up in about 4 months (around 11/10/2024) for AK f/u. Georgina Moore MD 07/11/24 7:08 AM REFERRING MD: documented in this [facility]08-28-2024 History of Present illness Narrative* Georgina Moore MD - 07/11/2024 12:45 PM EDT Images from the original note were not included. DATE OF SERVICE: 07/11/2024 PATIENT NAME: Yessi Hatch : 1945 AGE: 79 y.o. 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 male who presents for evaluation of spots on the scalp, face, neck and L ear x over 1 year. Pt states the lesions are scaly and bleed at time. Pt admits to picking at the lesion on the ear. Pt h/o numerous BCC and SCC. He was seeing a Manager Of Operations in [place] at [facility] but he retired a few years ago. Pt. Has had at least four surgeries for skin cancer. He has used fluorouracil. He had roya light treatment and this was painful for a week. Pt has seen numerous Dermatologists in the past. No personal h/o Melanoma. No f/h Melanoma. Pt has psoriatic arthritis and is on Inflectra and methotrexate x several years. His joint pain if better. He sees Dr. Shah in [place] twice a year. History of pacemaker/ defibrillator? No History of HIV/ Hep C? No Allergies to Lidocaine, Epinephrine, Latex or Adhesive? 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 Patient does use additional sun protection measures. REVIEW OF SYSTEMS: General/Constitutional Feels well; denies h/o fatigue, weight change, night sweats, fevers or chills. Lymphatic Denies swollen lymph nodes. Dermatologic As per HPI; denies new rashes, itching, hair loss, skin or nail changes. There were no vitals filed for this visit. GENERAL APPEARANCE:?Alert & oriented x3, pleasant. Well developed, well nourished. PSYCH: appropriate mood and affect 1. Neoplasm of uncertain behavior of skin Left [place] 1.5cm hemorrhagic nodule Skin Biopsy Type of biopsy: tangential Informed consent: discussed and consent obtained Timeout: patient name, date of , surgical site, and procedure verified Anesthesia: the lesion was anesthetized in a standard fashion Anesthetic: 1% lidocaine w/ epinephrine 1-100,000 buffered w/ 8.4% NaHCO3 Instrument used: DermaBlade Outcome: patient tolerated procedure well Post-procedure details: wound care instructions given Specimen A - Tissue exam Differential Diagnosis: BCC vs SCC Check Margins: No Biopsy recommended. Patient expresses understanding and is in agreement with the plan. Biopsy (x1) obtained today. Patient educated that we will call with the biopsy results within 2 weeks. Care instructions reviewed and written instructions provided to patient. 2. Actinic keratoses (3) Head - Anterior (Face), Neck - Anterior, Scalp Crusted papules [x]Chronic []Acute []Stable [x]Flaring/Exacerbation Patient educated on actinic keratosis and the possibility of transformation into SCC. Treatment options are discussed with risks and benefits reviewed. Patient is agreeable to start treatment with Efudex (fluorouracil) Rx: Efudex (fluorouracil) Cream Apply a very thin layer to the scalp, face and neck twice daily x 6 weeks. (Treating in sections) Patient thoroughly educated about treatment with Efudex, including risks, benefits and detailed application instructions. The severity of your reaction to this medication cannot be predicted. It is normal to have some redness/ irritation and crusting, but to stop treatment if patient develops any pain, open sores, weeping, oozing or ulceration. If any issues with treatment, stop medication and contact office. The skin must be protected from sun exposure; use clothing, sunscreen, hats, etc. Apply 15-20 minutes before any other creams or makeup. Apply at least 1 hour before bedtime in order formedication to soak in. Do not get into eyes. Wash hands thoroughly after application. fluorouracil (Efudex) 5 % cream - Head - Anterior (Face), Neck - Anterior, Scalp Apply a thin layer to affected areas bid x 6 weeks Orders Placed This Encounter Medications fluorouracil (Efudex) 5 % cream Sig: Apply a thin layer to affected areas bid x 6 weeks Dispense: 120 g Refill: 3 Follow up in about 4 months (around 11/10/2024) for AK f/u. Georgina Moore MD 07/11/24 7:08 AM REFERRING MD: documented in this [facility]08-28-2024 Instructions* Patient Instructions* Shala Vallejo MA - 07/11/2024 12:45 PM EDT [facility] Rx: Efudex (fluorouracil) Cream Apply a very thin layer to the spots on the nose, face, scalp and neck twice daily x 6 weeks. Patient thoroughly educated about treatment with Efudex, including risks, benefits and detailed application instructions. The severity of your reaction to this medication cannot be predicted. It is normal to have some redness/ irritation and crusting, but to stop treatment if patient develops any pain, open sores, weeping, oozing or ulceration. If any issues with treatment, stop medication and contact office. The skin must be protected from sun exposure; use clothing, sunscreen, hats, etc. Apply 15-20 minutes before any other creams or makeup. Apply at least 1 hour before bedtime in order formedication to soak in. Do not get into eyes. Wash hands thoroughly after application. BIOPSY / SURGICAL AFTERCARE 1. If a dressing is in place, please leave it for 24 hours unless given other instructions. 2. After that time, remove the initial bandage, and cleanse the area with a mild, fragrance free soap such as Dove, Cetaphil, or CeraVe. 3. Apply Vaseline to the area and cover with a new bandage. Please do not use Neosporin, Polysporin, or Bacitracin, as these may cause unwanted allergic reactions in some patients, and are not necessary for good healing. 4. Repeat the above steps every day for 7 days unless otherwise directed by physician or nurse. 5. If any bleeding occurs, use a clean cotton or gauze, apply firm, direct pressure to the area for10 to 15 minutes. If the bleeding does not stop, call our office at [phone]. 6. The wound should improve daily. If you notice any increased redness, swelling, drainage, warmth,or pain in the area, please notify our office. Please be advised that it can take up to 2 weeks for these sites to heal. In some patients it may take even longer depending on location (lower legs / feet) and / or if the patient has history of diabetes. Our office will notify you of the results in about 2 weeks. documented in this [facility]08-28-2024 Instructions* Patient Instructions* Shala Vallejo MA - 07/11/2024 12:45 PM EDT [facility] [address] [place] [address] 101 Rx: Efudex (fluorouracil) Cream Apply a very thin layer to the spots on the nose, face, scalp and neck twice daily x 6 weeks. Patient thoroughly educated about treatment with Efudex, including risks, benefits and detailed application instructions. The severity of your reaction to this medication cannot be predicted. It is normal to have some redness/ irritation and crusting, but to stop treatment if patient develops any pain, open sores, weeping, oozing or ulceration. If any issues with treatment, stop medication and contact office. The skin must be protected from sun exposure; use clothing, sunscreen, hats, etc. Apply 15-20 minutes before any other creams or makeup. Apply at least 1 hour before bedtime in order formedication to soak in. Do not get into eyes. Wash hands thoroughly after application. BIOPSY / SURGICAL AFTERCARE 1. If a dressing is in place, please leave it for 24 hours unless given other instructions. 2. After that time, remove the initial bandage, and cleanse the area with a mild, fragrance free soap such as Dove, Cetaphil, or CeraVe. 3. Apply Vaseline to the area and cover with a new bandage. Please do not use Neosporin, Polysporin, or Bacitracin, as these may cause unwanted allergic reactions in some patients, and are not necessary for good healing. 4. Repeat the above steps every day for 7 days unless otherwise directed by physician or nurse. 5. If any bleeding occurs, use a clean cotton or gauze, apply firm, direct pressure to the area for10 to 15 minutes. If the bleeding does not stop, call our office at [phone]. 6. The wound should improve daily. If you notice any increased redness, swelling, drainage, warmth,or pain in the area, please notify our office. Please be advised that it can take up to 2 weeks for these sites to heal. In some patients it may take even longer depending on location (lower legs / feet) and / or if the patient has history of diabetes. Our office will notify you of the results in about 2 weeks. documented in this [facility]08-28-2024 Miscellaneous Notes* Addendum Note - Ernestine Grullon - 07/11/2024 12:45 PM EDTAddended by: ERNESTINE GRULLON on: 08/28/2024 08:46 AM Modules accepted: Orders documented in this [place] [address]-28-2024 Note* Addendum Note - Ernestine Grullon - 07/11/2024 12:45 PM EDTAddended by: ERNESTINE GRULLON on: 08/28/2024 08:46 AM Modules accepted: Orders [id number] NoteAddended by: ERNESTINE GRULLON on: 08/28/2024 08:46 AM Modules accepted: [facility]06-24-2024 History of Present illness Narrative* Coco Shah Jr., DO - 05/07/2024 12:00 PM EDT Images from the original note were not included. Subjective History of Present Illness Patient started Humira 08/09/16. Humira was helping and not bothering him. Patient lost financial assistance and is now 2 expensive. Patient started Generic remicade in 03/2018. Remicade has been helping and not bothering him. Inflectra is 8 mg/kg every 6 weeks. Presence of Pain: denies pain/discomfort. Total time spent in this encounter was 26 minutes. Psoriasis/Rash is the same. Claudication continues. Prostate is about the same. Nocturia continues times 1. No eye problems. Joint pain is knees.Patient is here today for his 6 Month Follow-up. Patient states he is doing okay since his last appointment. Patient states the Inflectra infusions are working. I have been told that patient is on a high risk medication as it either treats cancer or requires blood work every 2-3 months. On prednisone right now for joint pain and rash. Hs taken it 2 other times. Objective Review of Systems Review of Systems Constitutional: Negative. Skin: Psoriasis HENT: Negative. Eyes: Glaucoma/Cataract S/P surgery Cardiovascular: Positive for claudication. Respiratory: Negative. Gastrointestinal: Negative. Breast: Negative. Genitourinary: Positive for hesitancy. BPH Prostate cancer Nocturia times one. Musculoskeletal: Positive for joint pain. Neurological: Negative. Psychiatric: Negative. Allergy/Immunology: Negative. Lymph/Heme: Negative. Endocrine: Negative. Physical Exam Blood pressure 132/70, pulse 83, height 1.829 m (6'), weight 96.6 kg (213 lb), SpO2 98%. Physical Exam Vitals and nursing note reviewed. [...] Extraocular movements intact bilaterally. Extraocular movements intact bilaterally.Pupils equal round and reactive to light bilaterally. Motor Strength is 5/5 throughout all four extremities. Sensory Normal sensation. Assessment and Plan Encounter Diagnoses Name Primary? Psoriatic arthritis Yes Psoriatic arthritis mutilans Hyperchromic anemia Macrocytic anemia Abnormal renal function test Encounter for long-term (current) use of non-steroidal anti-inflammatories History of malignant neoplasm of skin History of osteomyelitis Infliximab (Remicade) long-term use Long-term current use of high risk medication other than anticoagulant On statin therapy Other care home (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 Personal history of other [...] normal at 10 and still is at 3 8. Inflectra to 8 mg / kg IV every 6 weeks: Rx given 9. Lab on or about 05/22/2024 and every 3 months thereafter 10. Patient [...] Uric acid was normal at 5.9 15. CRAFT CENTER DIRECTOR was 1.23 with GFR of 60 and is now elevated at 1.42 with GFR of 51 16. Derm F/U per Dr. Joe malloy 17. Stop Aleve 18. Optho F/U per Dr. Chan. 19. 90 day supply on medications 20. 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 side effects of prednisone gone over with the patient 21. Hgb 12.7 22. Call if need Rx's 23. Follow-up with me in 6 months documented in this [facility]12-13-2023 History of Present illness Narrative* Coco Shah Jr., - 10/26/2023 2:30 PM EST Images from the original note were not included. Subjective History of Present Illness Patient started Humira 08/09/16. Humira was helping and not bothering him. Patient lost financial assistance and is now 2 expensive. Patient started Generic remicade in 03/2018. Remicade has been helping and not bothering him. Renflexis is 8 mg/kg every 6 weeks. Presence of Pain: complains of pain/dis comfort Select Pain Scale: DVPRS (Defense and Veterans Pain Rating Scale) (Adult- Cognitively Intact) DVPRS: Rest: 4- mild pain Select Pain Scale: DVPRS (Defense and Veterans Pain Rating Scale) (Adult- Cognitively Intact). Totaltime spent in this encounter was 30 minutes. Psoriasis/Rash is the same he would say. Claudication continues. Prostate unchanged. Glaucoma better after surgery. Joint pain is knees. Patient is here for 4 month Follow-up. Patient states he is doing ok. States he is having some knee pain. I have beentold that patient is on a high risk [...] Extraocular movements intact bilaterally. Extraocular movements intact bilaterally.Pupils equal round and reactive to light bilaterally. [...] of other malignant neoplasm of skin Other care home (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 On statin therapy Nocturia 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, care home, current use Long-term current use of high [...] Uric acid was normal at 5.9 15. CRAFT CENTER DIRECTOR was elevated at 1.55 with GFR of [...] of to be used as needed 23. 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 side effects of prednisone gone over with the patient 24. Rx given for 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 3 pills one day a week [facility] History of Present illness Narrative* Coco Shah Jr., - 07/04/2023 1:00 PM EDT Images from the original note were not [...] Extraocular movements intact bilaterally. Extraocular movements intact bilaterally.Pupils equal round and reactive to light bilaterally. [...] high risk medication other than anticoagulant 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, intermodal dispatcher, current use On statin therapy Other intermodal dispatcher (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 Cervical disc disorder Cervical [...] Uric acid was normal at 5.9 15. CRAFT CENTER DIRECTOR is elevated at 1.55 with GFr of [...] me in 4 months documented in this [facility]05-15-2023 [facility] HISTORY & PHYSICAL NAME ACCOUNT SEX AGE ADMIT DISCHARGE PT MED. RECORD# NUMBER DATE DATE TYPE LESLY [id number] M 77 03/03/23 03/03/23 2 YESSI [id number] ROOM: DATE OF : 41 DICTATING PHYSICIAN: Patrick Rojas PREOPERATIVE DIAGNOSES: 1. Ulcer with possible osteomyelitis [...] was made for him to go to [facility] but unfortunately the appointment is not for at least another month. The patient then had called the office stating that his foot was starting to get warm and swollen, and the previous cultures had been taken. The patient was encouraged to report to the Emergency Department, where he did at [facility]. He was admitted for a few days and placed on antibiotics. He was educated that surgical intervention would likely be necessary in an effort to heal the wound. The patient wished to follow up as an outpatient to have the surgery performed. When the patient had come to the office, he stated that another merit system director had suggested a Cosme arthroplasty with pin [...] second toe Page 1 of 2 YESSI HATCH History & Physical YESSI HATCH :1945 in the face of an ulceration and an absent hallux would make the second toe much longer. We do recommend a distal Syme's amputation, and the patient concurs. The patient will present for outpatient surgical intervention to [facility] on the morning of March 04, [...] directed upon his discharge. Dictated By: Patrick Rojas DPM 03/03/23 17:05 JOB #: [id number] Transcribed By: fani 03/03/23 17:15 Electronically signed by: GLENN ROJAS 03/28/23 07:28 Update to H&P: [ ] No changes: I have examined the patient and reviewed the H&P and there are no changes. [ ] As previously dictated with the following changes: ____ ____ ____ PHYSICIAN SIGNATURE: TIME: DATE: Page 2 of 2 YESSI HATCH [facility] Hospital Discharge instructions Additional Instructions Date of Discharge: 02/27/23[facility] Work Phone: 1(221) 394-797704-15-2023 Progress note Author Chevy Bautista [facility] February 26, 2023 4:50pm Note Date/Time February 26, 2023 4:4 2pm [facility] Medical Records Department [address] [place] [address] Progress Note 02/26/23 1633 MR#: [id number] Acct: [id number] Name: YESSI HATCH Rep #:[id number] : 1945 77 From: Chevy schroeder DPM PCP: Dr. Zach Turner MD Status:ADM IN [place] [facility] Subjective Subjective Patient seen this afternoon resting in chair with feet elevated. is present to discuss his ulcer and culture results. She previously discussed culture results and antibiotic management with hospitalist. States he feels thefoot is a little better today. Patient denies constitutional symptoms today. Denies further complaints. Objective Data Objective Data Vital Signs: Vital Signs Temp Pulse Resp BP Pulse Ox O2 Del Method 98.1 F 70 18 129/72 H 97 Room Air 02/26/23 14:28 02/26/23 14:28 02/26/23 14:28 02/26/23 14:28 02/26/23 14:28 02/26/23 14:28 Oxygen Delivery Method Room Air Weight: 95.708 kg Body Mass Index (BMI) 28.6 Intake & Output: Intake and Output for Last 24 Hours 02/24/23 02/25/23 02/26/23 23:59 23:59 23:59 Intake Total 860 / 860 1070 / 1070 Balance 860 / 860 1070 / 1070 Lab / Micro Data Result Diagrams: 02/26/23 07:06 02/26/23 07:06 Labs: Laboratory Results - last 24 hr 02/25/23 23:17: POC Glucose 171 H 02/26/23 07:06: WBC 9.0, RBC 4.49 L, Hgb 14.4, Hct 43.8, MCV 97.6 H, MCH 32.1 H,MCHC 32.9, RDW Std Deviation 50.3 H, RDW Coeff of Jaimee 14.2, Plt Count 222, MPV 10.6, Immature Gran % (Auto) 0.600, Neut % (Auto) 69.1, Lymph % (Auto) 19.7, [place] % (Auto) 7.2, Eos % (Auto) 3.1, Baso % (Auto) 0.3, Absolute Neuts (auto) 6.2, Absolute Lymphs (auto) 1.78, Nucleated RBC % 0 02/26/23 07:06: Sodium 135 L, Potassium 4.2, Chloride 103, Carbon Dioxide 30.0, Anion Gap 2 L, BUN 23 H, Creatinine 1.28, Estim Creat Clear Calc 51.36, Est GFR (MDRD) Af Amer 70, Est GFR (MDRD) Non-Af 58 L, BUN/Creatinine Ratio 18.0, Glucose 156 H, Calcium 9.8 Physical Exam Const alert, oriented x3 and no apparent distress Constitutional Narrative: Nontoxic-appearing HEENT normocephalic Eyes General Eye: normal appearance of both eyes Neck General: normal visual inspection Lymph Lymphatic: no lymphadenopathy noted and no lymphedema noted Resp normal respiratory effort Cardio regular rate and regular rhythm Extremity normal capillary refill, no calf tenderness and no pedal edema Extremity Narrative: DP and PT pulses are palpable bilateral with adequate capillary fill time to thedigits Left foot: There is increased warmth of the left foot dorsally compared to contralateral limb however no overt erythema noted, this is improving. 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 Ulceration has mixed fibrogranular tissue with tunneling at the the 6 o'clock position of 2 cm, 9 o'clock position 1.4 cm and 11 o'clock position 1.3 cm. No erythema, no purulent drainage, no malodor, no palpable fluctuance/bogginess noted, no visible abscess formation, no lymphangitic streaking. Second digit distal tuft abrasion left foot secondary to hammertoe formation Skin no rashes or lesions noted, skin turgor normal and no jaundice Wound Narrative: Neuropathic pressure ulceration secondary to base of the proximal phalanx of theleft hallux. Ulceration has mixed fibrogranular tissue with tunneling at the the 6 o'clock position of 2 cm, 9 o'clock position 1.4 cm and 11 o'clock position 1.3 cm. No erythema, no purulent drainage, no malodor, no palpable fluctuance/bogginess noted, no visible abscess formation, no lymphangitic streaking. Second digit distal tuft abrasion left foot secondary to hammertoe formation Neuro moves all extremities Assessment & Plan Assessment/Plan (1) Diabetic foot ulcer associated with type 2 diabetes mellitus: QUALIFIERS: Diabetic foot ulcer location: toe Laterality: left Non-pressure ulcer stage: with bone involvement without evidence of necrosis Qualified Code(s): E11.621 - Type 2 diabetes mellitus with foot ulcer; L97.526 -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 involvement without evidence of necrosis (2) Pressure ulcer of toe of right foot, stage 2: (3) Deformity of toe of left foot: (4) Cellulitis of left foot: (5) Diabetes mellitus with diabetic polyneuropathy: (6) Acquired hammer toe of left foot: (7) 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 of skin: PLAN: Plan Patient seen and evaluated Despite no significant erythema there is increased warmth to the dorsum of the left foot versus contralateral limb. Patient does have significant neuropathy to bilateral foot. Neuropathic pressure ulceration secondary to hallux extensus and base of the proximal phalanx of the left hallux creating plantar prominence. Ulceration hasmixed fibrogranular tissue measuring 1.5 cm x 1.3 cm x 1 cm with tunneling at the the 6 o'clock position of 2 cm, 9 o'clock position 1.4 cm and 11 o'clock position 1.3 cm. No erythema, no purulent drainage, no malodor, no palpable fluctuance/bogginess noted, no visible abscess formation, no lymphangitic streaking. Ulceration does extend towards the capsule of the first metatarsal phalangeal joint but does not penetrate the joint capsule. Scant purulence expressible today from the 9 o'clock position, this was extensively irrigated and no further purulence was expressible. Second digit distal tuft abrasion left foot secondary to hammertoe formation He did have cultures 3 days prior demonstrating E faecalis. WBC 13.7 trending down currently 9.0, ESR 6, CRP 50.30. Patient currently on IV meropenem. On 02/25/2023 he underwent sharp debridement of the ulcerative site and copiouslyirrigated including tunneling pockets with 200 mL normal sterile saline utilizing a 30 cc syringe and an 18-gauge needle. Adequate soft tissue bleedingwas noted following procedure. Site was again copiously irrigated with 250 mL normal sterile saline on 02/26/2023. Site was dressed with Betadine, gauze, ABD, Kerlix, and Pham. Dressings to be changed daily. Nursing to assist in changes. Continue to elevate left lower extremity at all times of rest. He is to remain nonweightbearing to the left lower extremity with assistance of a walker. Medicine team following for medical management, they are greatly appreciated. Infectious disease has been consulted for antibiotic management. Patient was seen with Dr. Hendricks present for debridement on 02/25/2023. Following this Dr. Hendricks and myself did discuss on phone with Dr. Patrick Freeman D.P.M. in regards to surgical management of this patient as patient has requested he wants to continue to follow with Dr. Freeman. While on phone with her she is willing to proceed with surgical intervention for a Cosme procedure/osteotomy of the left hallux base to effectively offload this ulceration allowing healing. She discussed that she will do as an outpatient. He will continue with IV antibiotics while in house for treatment of cellulitis. I discussed with her that I will evaluate again over the weekend prior to his discharge. She is in agreement with plan. Today I discussed the necessary procedure to be performed of the Cosme osteotomy of the left hallux with the patient again and his . states she has understanding of what needs to be done following our discussion and per both herwishes will follow with Dr. Freeman. Podiatry will continue to follow while in house. At this time no surgical intervention planned as patient would like to follow-up with Dr. Freeman. Patientis currently stable and following discussion with hospitalist plan is to discharge home on Zyvox and per patient wishes he will follow with Dr. Freeman to receive Cosme osteotomy of the left hallux. Chevy Bautista Jr. D.P.M. [facility] [phone] 02/26/23 1650 <Electronically signed by Chevy Bautista DPM> Chevy Faulkner Cosigner Signature (if applicable): CC: ~ Signed [facility] Work Phone: 1(814) 369-267504-14-2023 Consult note Author Chevy Bautista [facility] February 25, 2023 7:05pm Note Date/Time February 25, 2023 6:5 6pm [facility] Medical Records Department [address] [place] [address] Consultation 02/25/23 1834 MR#: [id number] Acct: [id number] Name: YESSI HATCH Rep #:[id number] : 1945 77 From: Chevy schroeder DPM PCP: Dr. Zach Turner MD Status:ADM IN Location: MS3 WQ180-1 Assessment & Plan Assessment/Plan (1) Diabetic foot ulcer associated with type 2 diabetes mellitus: QUALIFIERS: Diabetic foot ulcer location: toe Laterality: left Non-pressure ulcer stage: with bone involvement without evidence of necrosis Qualified Code(s): E11.621 - Type 2 diabetes mellitus with foot ulcer; L97.526 -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 involvement without evidence of necrosis (2) Pressure ulcer of toe of right foot, stage 2: (3) Deformity of toe of left foot: (4) Cellulitis of left foot: (5) Diabetes mellitus with diabetic polyneuropathy: (6) Acquired hammer toe of left foot: (7) 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 of skin: PLAN: Plan Patient seen and evaluated Despite no significant erythema there is increased warmth to the dorsum of the left foot versus contralateral limb. Patient does have significant neuropathy to bilateral foot. Neuropathic pressure ulceration secondary to base of the proximal phalanx of theleft hallux. Ulceration has mixed fibrogranular tissue measuring 1.5 cm x 1.3 cm x 1 cm with tunneling at the the 6 o'clock position of 2 cm, 9 o'clock position 1.4 cm and 11 o'clock position 1.3 cm. No erythema, no purulent drainage, no malodor, no palpable fluctuance/bogginess noted, no visible abscessformation, no lymphangitic streaking. Ulceration does extend towards the capsule of the first metatarsal phalangeal joint but does not penetrate the joint capsule. No purulence was expressible. Second digit distal tuft abrasion left foot secondary to hammertoe formation He did have cultures 3 days prior demonstrating E faecalis. WBC 13.7, ESR 6, CRP 50.30. Patient currently on IV meropenem. Following verbal for permission I did perform a bedside sharp debridement of theulcerative site utilizing a #3 curette. 100% of the ulceration was debrided without use of local anesthetic secondary to peripheral polyneuropathy. Ulceration is a Garcia stage II. Debridement consisted of fibrous, devitalized subcutaneous, biofilm, slough. Hemostasis achieved with pressure and gauze. Patient tolerated the procedure well. Following debridement site was copiously irrigated including tunneling pockets with 200 mL normal sterile saline utilizing a 30 cc syringe and an 18-gauge needle. Adequate soft tissue bleeding was noted following procedure. Site was dressed with Betadine, gauze, ABD, Kerlix, and Pham. Dressings to be changed daily. Nursing to assist in changes. Continue to elevate left lower extremity at all times of rest. He is to remain nonweightbearing to the left lower extremity with assistance of a walker. Medicine team following for medical management, they are greatly appreciated. Infectious disease has been consulted for antibiotic management. Patient was seen with Dr. Hendricks present for debridement. Following this Dr. Hendricks and myself did discuss on phone with Dr. Patrick Freeman, Jacobo.P.Elvia. in regards to surgical management of this patient as patient has requested he wantsto continue to follow with Dr. Freeman. While on phone with her she is willing toproceed with surgical intervention for a Cosme procedure/osteotomy of the left hallux base to effectively offload this ulceration allowing healing. She discussed that she will do as an outpatient. He will continue with IV antibiotics while in house for treatment of cellulitis. I discussed with her that I will evaluate again over the weekend prior to his discharge. She is in agreement with plan. Podiatry will continue to follow while in house. At this time no surgical intervention planned as patient would like to follow-up with Dr. Freeman. Jr. Loan SorensenP.M. [facility] [phone] HPI Consult Data Date of Consult: 02/25/23 HPI Narrative Reason for Consultation: Left Sub hallux ulceration HPI Narrative: YESSI HATCH, is a 77 M who presents presents to the [facility] ED with a nonhealing ulceration to the plantar aspect of the hallux of the left foot. Patient was previously seen in the wound care center by Tanesha Alva NP and was consulted to me for nonhealing ulceration in December 2022. At that time I discussed with him the need to perform a Cosme osteotomy to effectively offload the prominent portion of bone creating the neuropathic ulceration to the plantar hallux of the left foot. Patient stated he would talkit over with his however never returned to the wound care center or follow back with me. He did seek treatment with Loan BroussardPLydia and undergoing conservative treatment with local wound care. She did perform a culture 3 days ago with positive results and was started on oral doxycycline. He states that the ulceration was hurting more today with some redness that did develop in which he did call Dr. Freeman and discussed briefly over the phone and was directed to the ED. He denies N/V/F/chills today. States that the ulcer does have bloody drainage. He was admitted to [facility] and hewas consulted to podiatry for evaluation of his nonhealing plantar hallux wound. [facility] Medical History (Updated 02/25/23 @ 18:[address] Chevy Bautista, FLORY) Acute osteomyelitis involving ankle and foot Arthritis Asthma Atrial fibrillation Body mass index 31.0-31.9, adult Cellulitis Chronic osteomyelitis involving ankle and foot CPAP (continuous positive airway pressure) dependence Diabetes mellitus Ectopic atrial tachycardia Essential hypertension Hyperlipidemia Hypertension Long-term use of high-risk medication Methicillin susceptible Staphylococcus aureus infection Nonhealing nonsurgical wound with fat layer exposed RAJESH (obstructive sleep apnea) Paroxysmal ventricular tachycardia Premature atrial contractions Premature ventricular contraction Psoriasis Secondary pulmonary arterial hypertension Shortness of breath Sleep apnea Supraventricular tachycardia Home Medications finasteride 5 mg tablet 5 mg PO DAILY prostate 02/03/16 [History Last Taken Unknown] metformin 1,000 mg tablet 1,000 mg PO BIDCM dm 02/03/16 [History Last Taken 02/25/23] tamsulosin 0.4 mg capsule 0.4 mg PO QHS prostate 02/03/16 [History Last Taken 02/24/23] bimatoprost 0.01 % eye drops 1 drp EACH EYE DAILY glaucoma 06/30/18 [History Last Taken 02/25/23] fluticasone propionate 50 mcg/actuation nasal spray,suspension 2 spray NASAL DAILY PRN Nasal Congestion 06/30/18 [History Last Taken Unknown] methotrexate sodium 2.5 mg tablet 7.5 mg PO Q7D arthritis 06/30/18 [History Last Taken 02/23/23] pyridoxine (vitamin B6) 50 mg tablet 100 mg PO QHS supplement 06/30/18 [History Last Taken 02/24/23] multivitamin with folic acid 400 mcg tablet 1 tab PO DAILY supplement 10/20/18 [History Last Taken 02/25/23] oxybutynin chloride 5 mg tablet,extended release 24 hr 5 mg PO QHS bladder 10/20/18 [History Last Taken 02/24/23] timolol maleate 0.25 % eye drops 1 drp EACH EYE BID glaucoma 10/20/18 [History Last Taken 02/25/23] folic acid 1 mg tablet 4 mg PO DAILY supplement 06/01/19 [History Last Taken Unknown] glucosamine HCl 1,500 mg tablet 1,500 mg PO BID supplemt 02/20/20 [History Last Taken 02/25/23] glipizide 10 mg tablet 10 mg PO DAILY PRN dm 05/30/20 [History Last Taken 02/25/23] infliximab-dyyb 100 mg intravenous solution (Inflectra) mg IV UD psoriatic arthritis 05/30/20 [History Last Taken 02/18/23] naproxen sodium 220 mg capsule 220 mg PO PRN PRN Pain 1-10 Or Fever 09/24/20 [History Last Taken 02/25/23] cyanocobalamin (vitamin B-12) 100 mcg tablet 500 mcg PO DAILY supplement 12/01/20 [History Last Taken 02/25/23] cholecalciferol (vitamin D3) 25 mcg (1,000 unit) tablet 25 mcg PO DAILY supplement 02/03/22 [History Last Taken 02/24/23] fexofenadine 180 mg tablet 180 mg PO DAILY PRN allergies 02/03/22 [History Last Taken Unknown] potassium chloride 20 mEq tablet,extended release(part/cryst) 20 meq PO DAILY #90 tabs 02/03/22 [Rx Last Taken 02/25/23] pravastatin 40 mg tablet 40 mg PO QHS cholesterol #90 tabs 02/03/22 [Rx Last Taken 02/24/23] amlodipine 2.5 mg tablet 2.5 mg PO DAILY #90 tabs 02/24/23 [Rx Last Taken 02/25/23] hydrochlorothiazide 25 mg tablet 25 mg PO DAILY #90 tabs 02/24/23 [Rx Last Taken 02/25/23] lisinopril 40 mg tablet 40 mg PO DAILY #90 tabs 02/24/23 [Rx Last Taken 02/25/23] metoprolol succinate 100 mg tablet,extended release 24 hr 100 mg PO BID bp/heart#180 tabs 02/24/23 [Rx Last Taken 02/25/23] Allergy/AdvReac Type Severity Reaction Status Date / Time cephalexin [From Keflex] Allergy Severe rash Verified 02/25/23 12:02 sulfamethoxazole Allergy Severe Rash Verified 02/25/23 12:02 [From Bactrim] trimethoprim [From Bactrim] Allergy Severe Rash Verified 02/25/23 12:02 Penicillins Allergy Rash Verified 02/25/23 17:04 levofloxacin [From Levaquin] AdvReac Other Verified 02/25/23 12:02 Family History Father Cancer Prostate Mother Depression Surgical History excision of skin cancer History of foot surgery History of hammer toe correction (09/26/20) History of hernia repair History of partial amputation of toe History of tonsillectomy and adenoidectomy Social History Smoking Status: Former smoker pack-years: 30 alcohol intake: current alcohol intake frequency: holidays/special occasions only substance use type: does not use caffeine: Yes Type: coffee Number of servings: 3 what type of physical activity do you participate in: running and weight training frequency: 1-2 times per week ROS Constitutional Constitutional: Reports malaise; Denies body ache(s), chills or fever(s) Eyes Eyes: Denies change in vision, diplopia or erythema ENT HEENT: Denies dysphagia, mouth pain, nasal congestion, nasal discharge or sore throat Cardiovascular Cardiovascular: Denies chest pain, claudication, cold extremities or leg edema Respiratory/Chest Respiratory/Chest: Denies cough, dyspnea or shortness of breath at rest Gastrointestinal Gastrointestinal: Denies abdominal pain, constipation, diarrhea, nausea or vomiting Genitourinary Genitourinary: Reports urinary frequency and urinary hesitancy; Denies dysuria or hematuria Musculoskeletal Musculoskeletal: Denies joint pain, joint stiffness or joint swelling Integumentary Integumentary: Denies lesions, pruritus or rash Neurologic Neurologic: Denies dizziness, numbness or seizures Psychiatric Psychiatric: Denies anxiety or depression Endocrine Endocrinology: Denies polydipsia, polyphagia or polyuria Hematologic/Lymphatic Hematologic/Lymphatic: Denies easy bleeding or easy bruising Physical Exam Const alert, oriented x3 and no apparent distress Constitutional Narrative: Nontoxic-appearing HEENT normocephalic Eyes General Eye: normal appearance of both eyes Neck General: normal visual inspection Lymph Lymphatic: no lymphadenopathy noted and no lymphedema noted Resp normal respiratory effort Cardio regular rate and regular rhythm Extremity normal capillary refill, no calf tenderness and no pedal edema Extremity Narrative: DP and PT pulses are palpable bilateral with adequate capillary fill time to thedigits Left foot: There is increased warmth of the left foot dorsally compared to contralateral limb however no overt erythema noted. 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 Ulceration has mixed fibrogranular tissue with tunneling at the the 6 o'clock position of 2 cm, 9 o'clock position 1.4 cm and 11 o'clock position 1.3 cm. No erythema, no purulent drainage, no malodor, no palpable fluctuance/bogginess noted, no visible abscess formation, no lymphangitic streaking. Second digit distal tuft abrasion left foot secondary to hammertoe formation Skin no rashes or lesions noted, skin turgor normal and no jaundice Wound Narrative: Neuropathic pressure ulceration secondary to base of the proximal phalanx of theleft hallux. Ulceration has mixed fibrogranular tissue with tunneling at the the 6 o'clock position of 2 cm, 9 o'clock position 1.4 cm and 11 o'clock position 1.3 cm. No erythema, no purulent drainage, no malodor, no palpable fluctuance/bogginess noted, no visible abscess formation, no lymphangitic streaking. Second digit distal tuft abrasion left foot secondary to hammertoe formation Neuro moves all extremities Lab / Micro Data Result Diagrams: 02/25/23 12:40 02/25/23 12:40 Labs: Laboratory Results - last 24 hr 02/25/23 12:40: WBC 13.7 H, RBC 4.45 L, Hgb 14.1, Hct 42.9, MCV 96.4 H, MCH 31.7, MCHC 32.9, RDW Std Deviation 49.5 H, RDW Coeff of Jaimee 14.1, Plt Count 229,MPV 10.6, Immature Gran % (Auto) 0.700, Neut % (Auto) 76.7 H, Lymph % (Auto) 11.3 L, [place] % (Auto) 8.9, Eos % (Auto) 2.2, Baso % (Auto) 0.2, Absolute Neuts (auto) 10.5 H, Absolute Lymphs (auto) 1.54, Nucleated RBC % 0, ESR 6 02/25/23 12:40: Sodium 136, Potassium 4.0, Chloride 102, Carbon Dioxide 31.0, Anion Gap 3 L, BUN 27 H, Creatinine 1.31 H, Estim Creat Clear Calc 50.19, Est GFR (MDRD) Af Amer 68, Est GFR (MDRD) Non-Af 56 L, BUN/Creatinine Ratio 20.6 H, Glucose 155 H, Calcium 10.0, C-React Prot Ext Range 50.30 H Radiology Impression Foot X-Ray 02/25/23 13:30 IMPRESSION: Stable degenerative changes throughout the left foot as described. Overall, no interval change since the previous study. No acute fracture or suspicious erosive osseous lesion Stable nonspecific soft tissue swelling but no subcutaneous emphysema noted Electronically Signed: Nnamdi Carlson MD at 13:57 EDT Reading Location ID and State: [address] [place] [address] , Service support , 02/25/23 1905 <Electronically signed by Chevy Bautista DPM> Cosigner Signature (if applicable): CC: Dr. Zach Turner MD~ Signed [place] [facility] Work Phone: [phone]) 174-952204-14-[address] White [facility] February 25, 2023 5:17pm Note Date/Time February 25, 2023 12: 41pm [facility] Medical Records Department [address] [place] [address] Emergency Department Summary 02/25/23 MR#: [id number] Acct: [id number] Name: YESSI HATCH Rep #:[id number] : 1945 77 From: Mervin White MD PCP: Dr. Zach Turner MD Status:ADM IN [facility] [id number] HPI History of Present Illness Chief Complaint: Cellulitis Informant: patient and spouse/S.O. Onset/Context/Timing Onset: Today Narrative Narrative: Patient has a history of diabetic foot ulcers that have been present on his leftfoot for 6 months or more. Mainly, the one on the bottom of the foot, close to the great toe, that he has been following with podiatry Dr. Freeman for, and suspecting that this is a pressure ulcer. Has been undergoing treatment for that period of time, has been seen multiple times in the last couple weeks, had a culture done 3 days ago, and today it started hurting a little more than it had been, and he developed redness that was not there yesterday. Discussed withDr. Freeman over the phone, and they were directed to the ER because the culture was positive, all of this is per patient. Patient denies any fevers or chills today, or other systemic symptoms except for feeling a little malaised today compared to normal. [facility] Medical History Acute osteomyelitis involving ankle and foot Arthritis Body mass index 31.0-31.9, adult Cellulitis Chronic osteomyelitis involving ankle and foot Diabetes mellitus Ectopic atrial tachycardia Essential hypertension Hyperlipidemia Hypertension Long-term use of high-risk medication Methicillin susceptible Staphylococcus aureus infection Nonhealing nonsurgical wound with fat layer exposed RAJESH (obstructive sleep apnea) Paroxysmal ventricular tachycardia Premature atrial contractions Premature ventricular contraction Psoriasis Secondary pulmonary arterial hypertension Shortness of breath Supraventricular tachycardia Home Medications finasteride 5 mg tablet 5 mg PO DAILY 02/03/16 [History Last Taken Unknown] metformin 1,000 mg tablet 1,000 mg PO BIDCM 02/03/16 [History Last Taken Unknown] tamsulosin 0.4 mg capsule 0.4 mg PO QHS prostate 02/03/16 [History Last Taken Unknown] bimatoprost 0.01 % eye drops 1 drp EACH EYE DAILY 06/30/18 [History Last Taken Unknown] fluticasone propionate 50 mcg/actuation nasal spray,suspension 2 spray NASAL DAILY PRN Nasal Congestion 06/30/18 [History Last Taken Unknown] methotrexate sodium 2.5 mg tablet 7.5 mg PO Q7D 06/30/18 [History Last Taken Unknown] pyridoxine (vitamin B6) 50 mg tablet 100 mg PO QHS 06/30/18 [History Last Taken Unknown] multivitamin with folic acid 400 mcg tablet 1 tab PO DAILY 10/20/18 [History Last Taken Unknown] oxybutynin chloride 5 mg tablet,extended release 24 hr 5 mg PO QHS bladder 10/20/18 [History Last Taken Unknown] timolol maleate 0.25 % eye drops 1 drp EACH EYE BID 10/20/18 [History Last Taken 09/26/20 07:30] folic acid 1 mg tablet 4 mg PO DAILY 06/01/19 [History Last Taken Unknown] glucosamine HCl 1,500 mg tablet 1,500 mg PO BID 02/20/20 [History Last Taken Unknown] vit C 250 mg-vit E 90 mg-zinc 40 mg-copper 1 in-mwhaxk-uqhtob capsule 1 cap PO DAILY 02/20/20 [History Last Taken Unknown] glipizide 10 mg tablet 10 mg PO DAILY 05/30/20 [History Last Taken Unknown] infliximab-dyyb 100 mg intravenous solution (Inflectra) mg IV [id number] psoriaticarthritis 05/30/20 [History Last Taken 08/15/20] naproxen sodium 220 mg capsule 220 mg PO PRN PRN Pain 1-10 Or Fever 09/24/20 [History Last Taken Unknown] cyanocobalamin (vitamin B-12) 100 mcg tablet 500 mcg PO DAILY 12/01/20 [History Last Taken Unknown] cholecalciferol (vitamin D3) 25 mcg (1,000 unit) tablet 25 mcg PO BID 02/03/22 [History Last Taken Unknown] fexofenadine 180 mg tablet 180 mg PO DAILY PRN allergies 02/03/22 [History Last Taken Unknown] potassium chloride 20 mEq tablet,extended release(part/cryst) 20 meq PO DAILY #90 tabs 02/03/22 [Rx Last Taken Unknown] pravastatin 40 mg tablet 40 mg PO QHS cholesterol #90 tabs 02/03/22 [Rx Last Taken Unknown] doxycycline hyclate 100 mg tablet 100 mg PO BID 02/22/22 [History Last Taken Unknown] amlodipine 2.5 mg tablet 2.5 mg PO DAILY #90 tabs 02/24/23 [Rx Last Taken Unknown] hydrochlorothiazide 25 mg tablet 25 mg PO DAILY #90 tabs 02/24/23 [Rx Last Taken Unknown] lisinopril 40 mg tablet 40 mg PO DAILY #90 tabs 02/24/23 [Rx Last Taken Unknown] metoprolol succinate 100 mg tablet,extended release 24 hr 100 mg PO BID bp/heart#180 tabs 02/24/23 [Rx Last Taken Unknown] Allergy/AdvReac Type Severity Reaction Status Date / Time cephalexin [From Keflex] Allergy Severe rash Verified 02/25/23 12:02 sulfamethoxazole Allergy Severe Rash Verified 02/25/23 12:02 [From Bactrim] trimethoprim [From Bactrim] Allergy Severe Rash Verified 02/25/23 12:02 levofloxacin [From Levaquin] AdvReac Other Verified 02/25/23 12:02 Penicillins AdvReac Unknown Verified 02/25/23 12:02 Family History Father Cancer Prostate Mother Depression Surgical History excision of skin cancer History of foot surgery History of hammer toe correction (09/26/20) History of hernia repair History of partial amputation of toe History of tonsillectomy and adenoidectomy Social History Smoking Status: Former smoker pack-years: 30 alcohol intake: current alcohol intake frequency: holidays/special occasions only substance use type: does not use caffeine: Yes Type: coffee Number of servings: 3 what type of physical activity do you participate in: running and weight training frequency: 1-2 times per week ROS ROS ED Constitutional Constitutional ED: Reports malaise; Denies chills or fever(s) Cardiovascular Cardiovascular: Denies chest pain or palpitations Respiratory/Chest Respiratory/Chest: Denies cough or dyspnea Musculoskeletal Musculoskeletal: Reports extremity pain; Denies neck pain Integumentary Reports rash and wounds; Denies Abrasions Neurologic Neurologic: Reports paresthesias RLE and LLE; Denies weakness EXAM Physical Exam Const Vital Signs: 02/25/23 12:02 02/25/23 14:05 Temperature 96.6 F L 98.3 F Temperature Source Temporal Oral Pulse Rate 83 94 Respiratory Rate 14 16 Blood Pressure 119/96 H 141/56 H Blood Pressure Mean 103 84 Pulse Ox 95 Oxygen Delivery Method Room Air Positive well nourished and well developed General Appearance ED: well developed and NAD HEENT Reports moist mucous membranes normocephalic and atraumatic Eyes PERRL and EOMs intact bilaterally Neck full ROM and supple Resp normal respiratory effort and clear to auscultation bilaterally Cardio regular rate, regular rhythm and no murmurs Rate: Negative for tachycardic GI non-tender and non-distended Auscultation: normoactive bowel sounds Palpation: soft Back/Spine normal ROM and normal to inspection General Back: other FROM Extremity Extremity Narrative: Left foot: Erythematous great and second toes, there is a recently debrided superficial ulceration at the tip of the second toe, and at the plantar aspect of the first ray near the metacarpal head area/ball of the foot, there is a deepwound, there is a scant amount of discharge from both of these wounds on the dressings that were on them. There is swelling and erythema that progresses into the dorsal forefoot/metacarpal area, that is limited and then there is lymphangitis that goes up the medial aspect of the lower leg, none of this area is tender and however he has insensate feet due to peripheral neuropathy. Thereis no inguinal lymphadenopathy. Full range of motion all joints, all compartments are soft and nondistended. Neuro oriented x3 and no focal motor deficits Neuro Narrative: Decree sensation both feet symmetrically Sensorium / Orientation: alert Motor Exam: strength 5/5 throughout Psych mental status grossly normal and thought process normal Skin Skin Narrative: Wounds left first and second toes, with what appears to be cellulitis and lymphangitis see above MDM MDM MDM Narrative Medical decision making narrative: Patient clearly has clinical cellulitis that appears to be emanating from these wounds on his left foot, I did a work-up to see if he also has osteomyelitis. The x-rays do not show any obvious evidence of that, but he does have a leukocytosis and elevated CRP with a negative ESR, he is doing well clinically and hemodynamically, treated empirically with vancomycin, given the lymphangitisI believe admitting to the hospital is reasonable here. Lab Data Attestation: I reviewed the patient's lab results. Labs: Laboratory Results - last 24 hr 02/25/23 02/25/23 12:40 12:40 WBC 13.7 H RBC 4.45 L Hgb 14.1 Hct 42.9 MCV 96.4 H MCH 31.7 MCHC 32.9 RDW Std Deviation 49.5 H RDW Coeff of Jaimee 14.1 Plt Count 229 MPV 10.6 Immature Gran % (Auto) 0.700 Neut % (Auto) 76.7 H Lymph % (Auto) 11.3 L [place] % (Auto) 8.9 Eos % (Auto) 2.2 Baso % (Auto) 0.2 Absolute Neuts (auto) 10.5 H Absolute Lymphs (auto) 1.54 Nucleated RBC % 0 ESR 6 Sodium 136 Potassium 4.0 Chloride 102 Carbon Dioxide 31.0 Anion Gap 3 L BUN 27 H Creatinine 1.31 H Estim Creat Clear Calc 50.19 Est GFR (MDRD) Af Amer 68 Est GFR (MDRD) Non-Af 56 L BUN/Creatinine Ratio 20.6 H Glucose 155 H Calcium 10.0 C-React Prot Ext Range 50.30 H Radiography Diagnostic Testing: Clinical Impression(s) from Imaging Studies Foot X-Ray 02/25/23 13:30 IMPRESSION: Stable degenerative changes throughout the left foot as described. Overall, no interval change since the previous study. No acute fracture or suspicious erosive osseous lesion Stable nonspecific soft tissue swelling but no subcutaneous emphysema noted Electronically Signed: Nnamdi Carlson MD at 13:57 EDT Reading Location ID and State: formerly [facility] / [place] , Service support , Management Discussion w/another healthcare provider: Hospitalist Discharge Plan Triage Chief Complaint: Cellulitis ED Provider: Mervin White Dx/Rx/DC Orders Clinical Impression: Diabetic infection of left foot, Cellulitis of left foot Prescriptions: No Action Inflectra 100 mg recon soln IV [id number] Label Comments: IV Rx Instructions: 8 MG/KG glucosamine HCl 1,500 mg tablet 1,500 mg PO BID Rx Instructions: administer with a meal cyanocobalamin (vitamin B-12) 100 mcg tablet 500 mcg PO DAILY glipizide 10 mg tablet 10 mg PO DAILY cholecalciferol (vitamin D3) 25 mcg (1,000 unit) tablet 25 mcg PO BID pravastatin 40 mg tablet 40 mg PO QHS Qty: 90 3RF potassium chloride 20 mEq tablet,ER particles/crystals 20 meq PO DAILY Qty: 90 3RF tamsulosin 0.4 MG capsule 0.4 mg PO QHS metformin 1,000 MG tablet 1,000 mg PO BIDCM finasteride 5 MG tablet 5 mg PO DAILY vit C,J-Ns-nfjmu-lutein-zeaxan [id number] zq-sdmc-fs-mg capsule 1 cap PO DAILY methotrexate sodium 2.5 MG tablet 7.5 mg PO Q7D pyridoxine (vitamin B6) 50 MG tablet 100 mg PO QHS fluticasone propionate 1 SPRAY spray,suspension 2 spray NASAL DAILY PRN (Reason: Nasal Congestion) bimatoprost 1 DROP drops 1 drp EACH EYE DAILY folic acid 1 mg tablet 4 mg PO DAILY fexofenadine 180 mg tablet 180 mg PO DAILY PRN (Reason: allergies) oxybutynin chloride 5 MG tablet 5 mg PO QHS timolol maleate 1 DROP drops 1 drp EACH EYE BID multivitamin with folic acid 1 TABLET tablet 1 tab PO DAILY naproxen sodium 220 MG capsule 220 mg PO PRN PRN (Reason: Pain 1-10 Or Fever) doxycycline hyclate 100 mg tablet 100 mg PO BID Label Comments: TAKE 1 TABLET BY MOUTH TWICE A DAY metoprolol succinate 100 mg tablet extended release 24 hr 100 mg PO BID Qty: 180 3RF hydrochlorothiazide 25 mg tablet 25 mg PO DAILY Qty: 90 3RF amlodipine 2.5 mg tablet 2.5 mg PO DAILY Qty: 90 3RF lisinopril 40 mg tablet 40 mg PO DAILY Qty: 90 3RF Primary Care Provider: Zach Turner Referrals: Zach Turner MD [Primary Care Provider] - Disposition Disposition: Acute Care Hospital [facility] What to do if you have Problems For any increased pain, shortness of breath, bleeding, nausea or vomiting, chestpain, or any unexpected problems, contact your Primary Care Provider. Call [facility] ([phone]) or report to the closest Emergency Room. Call 911 if necessary. 02/25/231716 <Electronically signed by Mervin White MD> Cosigner Signature (if applicable): CC: Dr. Zach Turner MD ~ Signed [facility] Work Phone: 1(373) 934-463401-18-2023 Progress note Author Tanesha Alva [facility] December 01, 2022 10:24am Note Date/Time December 01, 2022 1 0:24am [facility] [place] [address] [address] Progress Note - Wound Care 12/01/22 1021 MR#: [id number] Acct: [id number] Name: YESSI HATCH Rep #:[id number] : 1945 77 From: Tanesha Alva NP DENTISTRY TEACHER-C PCP: Dr. Zach Turner MD Status:REG RCR Location: History of Present Illness Date of Service: 12/01/22 Chief Complaint: Follow-up on right fifth toe plantar side left plantar great toe and left plantar second toe. History of Wound: 76-year-old white male with previous history of amputations ofthe toes. Appears with increase in wounds to the toes for the last 6 weeks at least. He has been seen by his own merit system director Dr. Nguyen and he referred him tohere. He is currently using Aquacel to his wounds. His usually helps withdressing changes without a problem. Progress of Wound: Wound is progressing well slightly smaller but still gets a callus around the total peripheral edge of the wound Subjective Subjective Patient is pleased with outcomes Objective Data Objective Data No sign of infection measurements are about the same still has a callus around the edge doing well switch him over to Promogran from [place]. Vital Signs: Vital Signs Temp Pulse Resp BP O2 Del Method 96.3 F L 67 16 139/67 H Room Air 12/01/22 09:50 12/01/22 09:50 11/24/22 09:40 12/01/22 09:50 11/24/22 09:40 Oxygen Delivery Method Room Air Lab / Micro Data Attestation: I reviewed the patient's lab results. Physical Exam Const oriented x3 General Appearance: cooperative Exam Limitations: no limitations Resp normal respiratory effort Effort and Inspection: able to speak in complete sentences Auscultation: clear to auscultation bilaterally Cardio regular rate and regular rhythm Palpation: normal PMI Rate: regular rate Rhythm: regular rhythm GI Auscultation: normoactive bowel sounds Palpation: soft and no hepatosplenomegaly Extremity normal to inspection General Extremity: normal exam except as noted Skin no rashes or lesions noted Wound Narrative: Open wounds with callus around on the right fifth toe plantar left second toe plantar and left great toe plantar with all with open wounds also. Neuro oriented x3 Psych Appearance: grossly normal Speech: normal speech Thought Content: normal thought content Judgement: judgement good Debridement Note Debridement Note Wound debrided: Left plantar pressure Laterality: Left Type of Debridement: Excisional debridement Anesthesia Used: 5% Lidocaine Gel Depth: in the subcutaneous layer Percentage of wound debrided: 100 Instrument Used: 5mm curette Tissue Removed: Fibrin and callus Severity: Fat Layer Exposed Amount of bleeding with debridement: Mild Bleeding Controlled with: Compression and gauze Patient tolerated procedure: Patient tolerated procedure well Post-Debridement Measurements and Additional Note: Post-Debridement Measurements/Treatment - Nurse 1 - General Ulcer Assessment Start: 11/24/22 09:40 Freq: Status: Active Protocol: REMA Activity Type Activity Date Activity User E-sign Co-sign Detail Recorded Client Recorded Date Recorded By Document 11/24/22 09:40 [facility] [id number] 11/24/22 09:45 [facility] Document 12/01/22 09:50 MA [id number] 12/01/22 09:53 [place] 11/24/22 12/01/22 09:40 09:50 - Today's Visit Information Type of service Follow-up Visit Follow-up Visit (Physician/PALLIATIVE MEDICINE PHYSICIAN (Physician/PALLIATIVE MEDICINE PHYSICIAN ) ) Arrival Mode Ambulatory Ambulatory Transfer Assistance None Patient Identification Verified (Name & Yes Yes ) Patient Requires Transmission-Based No No Precautions Vital Signs Temperature (97.8 F-99.1 F) 96.4 F L 96.3 F L Temperature Source Temporal Temporal Pulse Rate (60-100) 72 67 Pulse Location Monitor Monitor Respiratory Rate (12-18) 16 Respiratory rate source Observation Oxygen Delivery Method Room Air Blood Pressure (90/60-120/80) 157/77 H 139/67 H Blood Pressure Mean (mm Hg) 103 91 Source Monitor Monitor Position Sitting Blood Pressure Location Left Arm History Since Last Visit- (Skip if this is Patient's initial visit) Have you changed medications since your No No last visit? Any new allergies or adverse reactions No No Had a fall/change in ADL's that may No No increase risk of falls Signs or symptoms of abuse and/or No No neglect since last visit Have you been in the hospital since your No No last visit? Has dressing in place as prescribed Yes Yes Has compression in place as prescribed N/A N/A Has offloadiing in place as prescribed Yes Yes Experienced any changes in pain level or No management Left Footwear Diabetic Shoe Removable Cast Walker/Walking Boot Right Footwear Diabetic Shoe Regular Shoe Pain Scale: 0-10 Numeric Is Patient Pain Free? Yes Yes - Nurse 1 - General Ulcer Measurement Start: 11/24/22 09:40 Freq: Status: Active Protocol: Activity Type Activity Date Activity User E-sign Co-sign Detail Recorded Client Recorded Date Recorded By Document 11/24/22 09:40 [facility] [id number] 11/24/22 09:45 [facility] Document 12/01/22 09:50 [place] [id number] 12/01/22 09:53 [place] 11/24/22 12/01/22 09:40 09:50 Wound Center Nurse 1 #10 L PLANTAR -Combined with other wound No No -Current Size (cm) - Length 0.4 0.1 -Current Size (cm) - Width 0.4 0.2 -Current Size (cm) - Depth 0.3 0.3 -Total Square Cm 0.16 0.02 -Date of Last Picture (Recall this 11/24/22 12/01/22 field) -Photo Taken Yes Yes -Epithelialization None Present -Tunneling No No -Undermining/Tunneling No No -Circular Undermining No Yes -Exudate Amt Medium Medium -Exudate Type Serosanguineous Serosanguineous -Wound Margin Distinct, Distinct, Outline Outline Attached Attached -Granulation Amt Medium (34-66%) Large (67-100%) -Granulation Quality Manti,Red Red -Slough/Fibrin No No -Necrosis Amt Medium (34-66%) None Present (0 %) -Necrotic Tissue Type Adherent Slough -Structure Exposed N/A -Texture (Angie-wound Skin Appearance) Assessed,Callus Assessed,Callus ,Scarring -Moisture (Angie-wound Skin Appearance) Assessed,Dry/ No Abnormality, Scaly Assessed -Color (Angie-wound Skin Appearance) Assessed No Abnormality, Assessed -Temperature (Angie-wound Skin No Abnormality No Abnormality Appearance) (Pt Warm) (Pt Warm) -Tenderness on Palpation (Angie-wound No No Skin Appearance) -Ulcer Cleansing Rinsed/ Rinsed/ Irrigated with Irrigated with Saline Saline -Foul Odor after Cleansing No No -Anesthetic Used 5% Lidocaine 5% Lidocaine Gel Gel WC - Nurse 2 - General Ulcer CM Notes Start: 11/24/22 09:40 Freq: Status: Active Protocol: Activity Type Activity Date Activity User E-sign Co-sign Detail Recorded Client Recorded Date Recorded By Document 11/24/22 09:57 MW [id number] 11/24/22 10:04 MW Document 12/01/22 09:58 MW [id number] 12/01/22 10:01 MW 11/24/22 12/01/22 09:57 09:58 Wound Center Nurse 2 #10 L PLANTAR -Time 09:57 09:58 -Correct Patient Yes Yes -Correct Side, Site, Position Yes Yes -Correct Procedure Yes Yes -Procedure Performed Yes Yes -Type of Procedure Debridement Debridement -Clinical Debridement Subcutaneous Subcutaneous -Tissue Removed Subcutaneous Subcutaneous -Post Debridement (cm) - Length 0.3 0.3 -Post Debridement (cm) - Width 0.5 0.5 -Post Debridement (cm) - Depth 0.2 0.2 -Total Square (Post) (cm) 0.15 0.15 -Area of Debridement (cm) - Length 0.3 0.3 -Area of Debridement (cm) - Width 0.5 0.5 -Total Square (Area) (cm) 0.15 0.15 -Tunneling No No -Undermining/Tunneling No No -Circular Undermining No No -Wound/Ulcer Outcome Not Healed Not Healed -Ulcer Cleansing Rinsed/ Rinsed/ Irrigated with Irrigated with Saline Saline -Foul Odor after Cleansing No No -Bioengineered Tissue No No -Bleeding Controlled with Pressure Pressure -Treatment Response Procedure Procedure Tolerated Well Tolerated Well -Offloading No No -Debridement - Subq, 1st 20sq cm Yes Yes Pain Scale: 0-10 Numeric Is Patient Pain Free? Yes Yes - Nurse 3 - General Ulcer D/C NN Start: 11/24/22 09:40 Freq: Status: Active Protocol: Activity Type Activity Date Activity User E-sign Co-sign Detail Recorded Client Recorded Date Recorded By Document 11/24/22 10:13 [facility] [id number] 11/24/22 10:13 [facility] 11/24/22 10:13 Wound Care Nurse 3 #10 L PLANTAR -Ulcer Cleansing Rinsed/ Irrigated with Saline -Foul Odor after Cleansing No -Primary Dressing Applied NonAdherent Contact Layer, Promogran [place] Matter -Primary Dressing Covered/Secured with Dry Gauze & Roll Gauze, Secured with Tape -Other Covering stasis pad -Promogran [place] Matter 1 Treatment Response Procedure Tolerated Well Pain Scale: 0-10 Numeric Is Patient Pain Free? 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: CODE(S): E08.621 - Diabetes mellitus due to underlying condition with footulcer; L97.509 - Non-pressure chronic ulcer of other part of unspecified foot with unspecified severity QUALIFIERS: Laterality: left Non-pressure ulcer stage: with bone involvement without evidence of necrosis Qualified Code(s): E08.621 - Diabetes mellitus due to underlying condition with foot ulcer; L97.526 - 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 12/01/22 1024 <Electronically signed by Tanesha Alva NP DENTISTRY TEACHER-C> Cosigner Signature (if applicable): CC: ~ Signed [facility] Work Phone: 1(674) 474-227701-11-2023 Progress note Author Tanesha Alva [facility] November 24, 2022 11:10am Note Date/Time November 24, 2022 1 1:10am [facility] [address] [place] [id number] Progress Note - Wound Care 11/24/22 1107 MR#: [id number] Acct: [id number] Name: YESSI HATCH Rep #:[id number] : 1945 77 From: Tanesha Alva NP DENTISTRY TEACHER-C PCP: Dr. Zach Turner MD Status:REG RCR Location: History of Present Illness Date of Service: 11/24/22 Chief Complaint: Follow-up on right fifth toe plantar side left plantar great toe and left plantar second toe. History of Wound: 76-year-old white male with previous history of amputations ofthe toes. Appears with increase in wounds to the toes for the last 6 weeks at least. He has been seen by his own merit system director Dr. Nguyen and he referred him tohere. He is currently using Aquacel to his wounds. His usually helps withdressing changes without a problem. Progress of Wound: Wound is progressing well slightly smaller but still gets a callus around the total peripheral edge of the wound Subjective Subjective Patient is pleased with outcomes and is needing new supplies Objective Data Objective Data No sign of infection no odor finishes antibiotic therapy. Vital Signs: Vital Signs Temp Pulse Resp BP O2 Del Method 96.4 F L 72 16 157/77 H Room Air 11/24/22 09:40 11/24/22 09:40 11/24/22 09:40 11/24/22 09:40 11/24/22 09:40 Oxygen Delivery Method Room Air Lab / Micro Data Attestation: I reviewed the patient's lab results. Physical Exam Const oriented x3 General Appearance: cooperative Exam Limitations: no limitations Resp normal respiratory effort Effort and Inspection: able to speak in complete sentences Auscultation: clear to auscultation bilaterally Cardio regular rate and regular rhythm Palpation: normal PMI Rate: regular rate Rhythm: regular rhythm GI Auscultation: normoactive bowel sounds Palpation: soft and no hepatosplenomegaly Extremity normal to inspection General Extremity: normal exam except as noted Skin no rashes or lesions noted Wound Narrative: Open wounds with callus around on the right fifth toe plantar left second toe plantar and left great toe plantar with all with open wounds also. Neuro oriented x3 Psych Appearance: grossly normal Speech: normal speech Thought Content: normal thought content Judgement: judgement good Debridement Note Debridement Note Wound debrided: Left plantar ulcer Laterality: Left Wound Grade/Stage: Stage II Type of Debridement: Excisional debridement Depth: in the subcutaneous layer Percentage of wound debrided: 100 Instrument Used: 7mm curette and - (Nippers) Severity: Fat Layer Exposed Amount of bleeding with debridement: Mild Bleeding Controlled with: Compression and gauze Patient tolerated procedure: Patient tolerated procedure well Post-Debridement Measurements and Additional Note: Post-Debridement Measurements/Treatment - Nurse 1 - General Ulcer Assessment Start: 11/24/22 09:40 Freq: Status: Active Protocol: REMA Activity Type Activity Date Activity User E-sign Co-sign Detail Recorded Client Recorded Date Recorded By Document 11/24/22 09:40 [facility] [id number] 11/24/22 09:45 [facility] 11/24/22 09:40 WC - Today's Visit Information Type of service Follow-up Visit (Physician/PALLIATIVE MEDICINE PHYSICIAN ) Arrival Mode Ambulatory Transfer Assistance None Patient Identification Verified (Name & Yes ) Patient Requires Transmission-Based No Precautions Vital Signs Temperature (97.8 F-99.1 F) 96.4 F L Temperature Source Temporal Pulse Rate (60-100) 72 Pulse Location Monitor Respiratory Rate (12-18) 16 Respiratory rate source Observation Oxygen Delivery Method Room Air Blood Pressure (90/60-120/80) 157/77 H Blood Pressure Mean (mm Hg) 103 Source Monitor Position Sitting Blood Pressure Location Left Arm History Since Last Visit- (Skip if this is Patient's initial visit) Have you changed medications since your No last visit? Any new allergies or adverse reactions No Had a fall/change in ADL's that may No increase risk of falls Signs or symptoms of abuse and/or No neglect since last visit Have you been in the hospital since your No last visit? Has dressing in place as prescribed Yes Has compression in place as prescribed N/A Has offloadiing in place as prescribed Yes Left Footwear Diabetic Shoe Right Footwear Diabetic Shoe Pain Scale: 0-10 Numeric Is Patient Pain Free? Yes - Nurse 1 - General Ulcer Measurement Start: 11/24/22 09:40 Freq: Status: Active Protocol: Activity Type Activity Date Activity User E-sign Co-sign Detail Recorded Client Recorded Date Recorded By Document 11/24/22 09:40 [facility] [id number] 11/24/22 09:45 [facility] 11/24/22 09:40 Wound Center Nurse 1 #10 L PLANTAR -Combined with other wound No -Current Size (cm) - Length 0.4 -Current Size (cm) - Width 0.4 -Current Size (cm) - Depth 0.3 -Total Square Cm 0.16 -Date of Last Picture (Recall this 11/24/22 field) -Photo Taken Yes -Epithelialization None Present -Tunneling No -Undermining/Tunneling No -Circular Undermining No -Exudate Amt Medium -Exudate Type Serosanguineous -Wound Margin Distinct, Outline Attached -Granulation Amt Medium (34-66%) -Granulation Quality Manti,Red -Slough/Fibrin No -Necrosis Amt Medium (34-66%) -Necrotic Tissue Type Adherent Slough -Texture (Angie-wound Skin Appearance) Assessed,Callus ,Scarring -Moisture (Angie-wound Skin Appearance) Assessed,Dry/ Scaly -Color (Angie-wound Skin Appearance) Assessed -Temperature (Angie-wound Skin No Abnormality Appearance) (Pt Warm) -Tenderness on Palpation (Angie-wound No Skin Appearance) -Ulcer Cleansing Rinsed/ Irrigated with Saline -Foul Odor after Cleansing No -Anesthetic Used 5% Lidocaine Gel WC - Nurse 2 - General Ulcer CM Notes Start: 11/24/22 09:40 Freq: Status: Active Protocol: Activity Type Activity Date Activity User E-sign Co-sign Detail Recorded Client Recorded Date Recorded By Document 11/24/22 09:57 MW [id number] 11/24/22 10:04 MW 11/24/22 09:57 Wound Center Nurse 2 -Time 09:57 -Correct Patient Yes -Correct Side, Site, Position Yes -Correct Procedure Yes -Procedure Performed Yes -Type of Procedure Debridement -Clinical Debridement Subcutaneous -Tissue Removed Subcutaneous -Post Debridement (cm) - Length 0.3 -Post Debridement (cm) - Width 0.5 -Post Debridement (cm) - Depth 0.2 -Total Square (Post) (cm) 0.15 -Area of Debridement (cm) - Length 0.3 -Area of Debridement (cm) - Width 0.5 -Total Square (Area) (cm) 0.15 -Tunneling No -Undermining/Tunneling No -Circular Undermining No -Wound/Ulcer Outcome Not Healed -Ulcer Cleansing Rinsed/ Irrigated with Saline -Foul Odor after Cleansing No -Bioengineered Tissue No -Bleeding Controlled with Pressure -Treatment Response Procedure Tolerated Well -Offloading No -Debridement - Subq, 1st 20sq cm Yes Pain Scale: 0-10 Numeric Is Patient Pain Free? Yes WC - Nurse 3 - General Ulcer D/C NN Start: 11/24/22 09:40 Freq: Status: Active Protocol: Activity Type Activity Date Activity User E-sign Co-sign Detail Recorded Client Recorded Date Recorded By Document 11/24/22 10:13 [facility] [id number] 11/24/22 10:13 [facility] 11/24/22 10:13 Wound Care Nurse 3 #10 L PLANTAR -Ulcer Cleansing Rinsed/ Irrigated with Saline -Foul Odor after Cleansing No -Primary Dressing Applied NonAdherent Contact Layer, Promogran Anne Marie Matter -Primary Dressing Covered/Secured with Dry Gauze & Roll Gauze, Secured with Tape -Other Covering stasis pad -Promogran Anne Marie Matter 1 Treatment Response Procedure Tolerated Well Pain Scale: 0-10 Numeric Is Patient Pain Free? 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: CODE(S): E08.621 - Diabetes mellitus due to underlying condition with footulcer; L97.509 - Non-pressure chronic ulcer of other part of unspecified foot with unspecified severity QUALIFIERS: Laterality: left Non-pressure ulcer stage: with bone involvement without evidence of necrosis Qualified Code(s): E08.621 - Diabetes mellitus due to underlying condition with foot ulcer; L97.526 - 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 Continue vancomycin as prescribed 11/24/22 1110 <Electronically signed by Tanesha Alva NP DENTISTRY TEACHER-C> Cosigner Signature (if applicable): CC: ~ Signed [facility] Work Phone: 1(419) 167-510311-07-2022 History of Present illness Narrative* Coco Shah Jr., DO - 09/20/2022 1:00 PM EST Images from the original note were not [...] high risk medication as it either treats canceror requires blood work every 2-3 months. Review [...] Extraocular movements intact bilaterally. Extraocular movements intact bilaterally.Pupils equal round and reactive to light bilaterally. [...] other than anticoagulant On statin therapy Other care home (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 Cervical disc disorder Cervical [...] per Dr. Chan. 19. Wound clinic in [place] 20. 90 day supply [facility] of Present illness Narrative* Coco Shah Jr., - 05/19/2022 12:30 PM EDT Images from the original note were not [...] risk medication. Patient has been off and onmedications since last seen. I have been told [...] Extraocular movements intact bilaterally. Extraocular movements intact bilaterally.Pupils equal round and reactive to light bilaterally. Motor Strength is 5/5 throughout all four extremities. Sensory Normal sensation. Assessment and Plan Encounter Diagnoses Name Primary? 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 Chan. 20. Wound clinic in [place] . 90 day supply on medications [facility] SARS-CoV RNA RENATE+probe Ql (Unsp spec)Coronavirus 2019 (RENATE)November 16, 2021 12:37pmDetectedNot DetectedPatients who have a positive COVID-19 test result may nowhave treatment options. Treatment options are available forpatients with mild to moderate symptoms and forhospitalized patients. Visit our website [email or web address] for resources andinformation.This nucleic acid amplification test was developed and itsperformance characteristics determined by [facility]. Nucleic acid amplification tests include RT-PCR and TMA. This test has not been FDA cleared orapproved. This test has been authorized by FDA under anEmergency Use Authorization (EUA). This test is onlyauthorizedfor the duration of time the declaration thatcircumstances exist justifying the authorization of theemergency use of in vitro diagnostic tests for detection pyBJUS-[id number] virus and/or diagnosis of COVID-19 infectionunder section 564(b)(1) of the Act, 21 U.S.C. 360bbb-3(b)(1), unless the authorization is terminated or revokedsooner.When diagnostic testing is negative, the possibility of afalse negative result should be considered in the contextof a patient's recent exposures and the presence ofclinical signs and symptoms consistent with COVID- 19. Anindividual without symptoms of COVID-19 and who is notshedding SARS-CoV-2 virus would expect to have a negative(not detected) result in this assay.[employer]ing[employer] INTERFACED A#[id number] [facility] University [facility] Work Phone: Comment on above:Patients who have a positive COVID-19 test result may nowhave treatment options. Treatment options are available forpatients with mild to moderate symptoms and forhospitalized patients. Visit our website [email or web address] for resources andinformation.This nucleic acid amplification test was developed and itsperformance characteristics determined by [facility]. Nucleic acid amplification tests include RT- PCR and TMA. This test has not been FDA cleared orapproved. This test has been authorized by FDA under anEmergency Use Authorization (EUA). This test is onlyauthorizedfor the duration of time the declaration thatcircumstances exist justifying the authorization of theemergency use of in vitro diagnostic tests for detection irAXLE-WvW-2 virus and/or diagnosis of COVID-19 infectionunder section 564(b)(1) of the Act, 21 U.S.C. 360bbb-3(b)(1), unless the authorization is terminated or revokedsooner.When diagnostic testing is negative, the possibility of afalse negative result should be considered in the contextof a patient's recent exposures and the presence ofclinical signs and symptoms consistent with COVID-19. Anindividual without symptoms of COVID-19 and who is notshedding SARS-CoV-2 virus would expect to have a negative(not detected) result in this assay.03-23-2021 History of Present illness Narrative* Coco Shah Jr., DO - 03/23/2021 11:30 AM EDT History of Present Illness Patient [...] infection and is being treated by tanesha alva cnp. 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 Hendricks [facility] February 27, 2023 11:48am Note Date/Time February 27, 2023 11: 42am [facility] Medical Records Department [address] [place] [id number] Instructions for Home/Discharge Instructions 02/27/23 1138 MR#: [id number] Acct: [id number] Name: YESSI HATCH Rep #:[id number] : 1945 77 From: Eddie Hendricks DO PCP: Dr. Zach Turner MD Status:ADM IN Discharge Instructions Diet Discharge Diet: 1800 Calorie Control Diet Activity Discharge Activity: Return to Normal Activity and - (no weight bearing on left forefoot) Weight Bearing Status: No weight bearing (left forefoot) Dressing / Incision Call your doctor if your incision/area has: - (do not change dressing) Change Dressing in: leave in place till F/U (with Dr. Rojas) Follow Up Care Test Results: Test results from this visit will be discussed in further detail at your follow- up appointment, if applicable. Discharge Plan Admission Admit Date/Time: 02/25/23 16:33 Primary Reason for Your Visit: left foot cellulitis Attending Provider: Eddie Hendricks Primary Care Provider: Zach Turner Consulting Providers: Chevy Bautista Discharge Orders/Prescriptions Prescriptions: New acetaminophen 325 mg Tablet 650 mg PO Q6H PRN PRN (Reason: Pain 1-10 Or Fever >100.7) Qty: 0 0RF linezolid [Zyvox] 600 mg tablet 600 mg PO BID Qty: 14 0RF Rx Instructions: start today Continued Inflectra 100 mg recon soln IV UD Label Comments: IV Rx Instructions: 8 MG/KG, [id number] glucosamine HCl 1,500 mg tablet 1,500 mg PO BID Rx Instructions: administer with a meal cyanocobalamin (vitamin B-12) 100 mcg tablet 500 mcg PO DAILY glipizide 10 mg tablet 10 mg PO DAILY PRN (Reason: dm) cholecalciferol (vitamin D3) 25 mcg (1,000 unit) tablet 25 mcg PO DAILY pravastatin 40 mg tablet 40 mg PO QHS Qty: 90 3RF potassium chloride 20 mEq tablet,ER particles/crystals 20 meq PO DAILY Qty: 90 3RF tamsulosin 0.4 MG capsule 0.4 mg PO QHS metformin 1,000 MG tablet 1,000 mg PO BIDCM finasteride 5 MG tablet 5 mg PO DAILY methotrexate sodium 2.5 MG tablet 7.5 mg PO Q7D pyridoxine (vitamin B6) 50 MG tablet 100 mg PO QHS fluticasone propionate 1 SPRAY spray,suspension 2 spray NASAL DAILY PRN (Reason: Nasal Congestion) bimatoprost 1 DROP drops 1 drp EACH EYE DAILY folic acid 1 mg tablet 4 mg PO DAILY fexofenadine 180 mg tablet 180 mg PO DAILY PRN (Reason: allergies) oxybutynin chloride 5 MG tablet 5 mg PO QHS timolol maleate 1 DROP drops 1 drp EACH EYE BID multivitamin with folic acid 1 TABLET tablet 1 tab PO DAILY naproxen sodium 220 MG capsule 220 mg PO PRN PRN (Reason: Pain 1-10 Or Fever) metoprolol succinate 100 mg tablet extended release 24 hr 100 mg PO BID Qty: 180 3RF hydrochlorothiazide 25 mg tablet 25 mg PO DAILY Qty: 90 3RF amlodipine 2.5 mg tablet 2.5 mg PO DAILY Qty: 90 3RF lisinopril 40 mg tablet 40 mg PO DAILY Qty: 90 3RF Referrals / Follow Up: Zach Turner MD [Primary Care Provider] - Patrick Rojas DPM [Med Staff - Active Staff] - See Referral Note (see her this week) Disposition Disposition (needs filled in before D/C Order can be placed): Home, Self Care 02/27/23 1148<Electronically signed by Eddie Hendricks DO>Eddie Hendricks DO CC: FLORY Bautista; Dr. Zach Turner MD ~ Signed [facility] Work Phone: Discharge summary Author [facility] Note Date/Time April 17, 2025 1:52p [facility] Medical Records Department [address] [place] [address] Discharge Summary 04/17/25 1340 MR#: [id number] Acct: [id number] Name: YESSI HATCH Rep #:[id number] : 1945 79 From: Coco Pepe MD PCP: Dr. Zach Turner MD Status:ADM IN [place] [facility] [id number] Prov[place] Date of Admission: 04/15/25 Date of Discharge: 04/17/25 Primary Care Physician: Dr. Zach Turner MD Consultations 04/15/25 18:28 Consult: Infectious Disease Routine Consulting Provider: Latonia Berry Reason for Consult: DFU EMERGENT Consult: No MD Notified: Yes Date Notified: 04/16/25 Time Notified: 06:37 Method of Notification: Text Consult: Onc/Wound/hand therapist Routine Comment: Reason for Consult:: skin tear also on right Arm Consult: Podiatry Routine Consulting Provider: Patrick Rojas Reason for Consult: DFU EMERGENT Consult: No MD Notified: Yes Date Notified: 04/15/25 Time Notified: 18:39 Method of Notification: Verbal Reason For Visit: CELLULITIS Diagnosis Discharge Diagnosis (1) Chronic kidney disease: Status: Chronic Code(s): N18.9 - Chronic kidney disease, unspecified Qualifiers: Chronic kidney disease stage: stage 3 (moderate) Chronic kidney diseasestage 3 subtype: stage 3b (GFR 30-44) Qualified Code(s): N18.32 - Chronic kidney disease, stage 3b (2) Diabetes mellitus with diabetic polyneuropathy: Status: Acute Code(s): E11.42 - Type 2 diabetes mellitus with diabetic polyneuropathy (3) Diabetic infection of left foot: Status: Acute Code(s): E11.628 - Type 2 diabetes mellitus with other skin complications; L08.9 - Local infection of the skin and subcutaneous tissue, unspecified Plan Patient is an 79-year-old gentleman presenting with erythema swelling and warmthinvolving the left foot 1. Diabetic foot infection involving the left foot. 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 Imaging studies obtained demonstrated soft tissue swelling involving multiple toes was however nonconclusive for osteomyelitis. Patient has been admitted to regular nursing floor started on broad-spectrum antibiotic therapy with meropenem and vancomycin. Ordered MRI to rule out osteomyelitis. Also ordered hemoglobin A1cESR as well as CRP ? 04/16/2025; scheduled to undergo MRI to rule out ? 04/17/2025;Patient underwent MRI of the left lower extremity results still pending. Patient was seen in consultation by both Dr. Thornton with podiatry and Dr. Berry with ID notes and recommendations reviewed ? ID recommended for patient to be discharged with 6 weeks of p.o. cefdinir for MSSA 2. 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 Held patient oral agents. Started patient on long-acting insulin in addition to Accu-Cheks AC and at bedtime with sliding scale coverage. Patient was also placed on 1800 ADA diet ? 04/16/2025; patient blood glucose levels remain controlled we will continue withcurrent treatment regimen 3. Paroxysmal A-fib ? Patient heart rate was relatively low. Will place patient on continuous telemetry monitoring. Patient is on metoprolol 100 mg twice daily will hold forheart rate less than 50 and blood pressure less than 100. Patient is on systemic anticoagulation apixaban did continue 4. Chronic kidney disease stage III ? Avoided nephrotoxic medications. Patient is on furosemide Lasix as well as HCTZ held ? 04/17/2025; patient kidney function did improve after potential nephrotoxic medications held we will continue with daily monitoring BMP 5. Essential hypertension ? Patient antihypertensives adjusted as above ordered hydralazine for systolic blood pressure greater than 160 ? Patient was on lisinopril and HCTZ discontinued given his impaired kidney function new prescription written for amlodipine 10 mg daily as well as hydralazine 25 mg p.o. twice daily patient instructed to follow-up with primary care physician in 2 weeks for adjustment of medication therapy if needed 6. Obstructive sleep apnea ? Consistent use of PAP therapy encouraged 7. 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 Patient is on methotrexate as well as infliximab held in view of patient infection 8. BPH with lower urinary obstructive symptoms - Patient treated with tamsulosin 9. Anemia ? Secondary to chronic disorder monitoring H&H and transfuse if patient becomes symptomatic or hemoglobin falls below 7 10. DVT prophylaxis ? Patient is on apixaban no need for additional measures Medications at Discharge Home Medications finasteride 5 mg tablet 5 mg PO DAILY prostate 02/03/16 tamsulosin 0.4 mg capsule 0.4 mg PO QHS prostate 02/03/16 fluticasone propionate 50 mcg/actuation nasal spray,suspension 2 spray NASAL DAILY PRN Nasal Congestion 06/30/18 methotrexate sodium 2.5 mg tablet 7.5 mg PO Q7D arthritis 06/30/18 pyridoxine (vitamin B6) 50 mg tablet 100 mg PO QHS supplement 06/30/18 multivitamin with folic acid 400 mcg tablet 1 tab PO DAILY supplement 10/20/18 oxybutynin chloride 5 mg tablet,extended release 24 hr 5 mg PO QHS bladder 10/20/18 folic acid 1 mg tablet 4 mg PO DAILY supplement 06/01/19 glucosamine HCl 1,500 mg tablet 1,500 mg PO BID supplemt 02/20/20 infliximab-dyyb 100 mg intravenous solution (Inflectra) 100 mg IV UD psoriatic arthritis 05/30/20 cyanocobalamin (vitamin B-12) 100 mcg tablet 500 mcg PO DAILY supplement 12/01/20 metoprolol succinate 100 mg tablet,extended release 24 hr 100 mg PO BID bp/heart#180 tabs 04/10/24 pravastatin 40 mg tablet 40 mg PO QHS cholesterol #90 tabs 04/10/24 cholecalciferol (vitamin D3) 25 mcg (1,000 unit) tablet 25 mcg PO DAILY supplement 06/20/24 ginkgo biloba leaf extract 60 mg capsule 60 mg PO DAILY 06/20/24 glipizide 10 mg tablet 10 mg PO DAILY dm 06/20/24 furosemide 20 mg tablet (Lasix) 20 mg PO DAILY PRN edema 03/08/25 vitamins A,C,U-tidq-zqpjcc 4,296 mcg-226 mg-90 mg capsule (PreserVision AREDS) 1cap PO QDAY 03/08/25 apixaban 5 mg tablet (Eliquis) 5 mg PO BID 04/15/25 lactulose 10 gram/15 mL oral solution (Enulose) 15 ml PO QHS 04/15/25 multivitamin (Daily Multi-Vitamin tablet) 1 tab PO DAILY 04/15/25 L.acidophil,salivari-Bifido bifidum-Strep thermoph 175 mg capsule 1 cap PO BID 8weeks #112 caps 04/17/25 acetaminophen 325 mg tablet 650 mg (2 x 325 mg) PO Q6H PRN PRN Pain 1-10 Or Fever >100.7 #0 tabs 04/17/25 amlodipine 10 mg tablet 10 mg PO DAILY 60 days #60 tabs 04/17/25 cefdinir 300 mg capsule 300 mg PO BID #80 caps 04/17/25 hydralazine 25 mg tablet 25 mg PO BID 60 days #120 tabs 04/17/25 Hospital Course Summary of Care Provided Minutes Spent on Discharge: 35 Physical Exam Narrative GENERAL: cooperative HEENT: Atraumatic; normocephalic EYES; Anicteric, Normal Conjunctiva NECK; supple, normal thyroid, RESPIRATORY: Diminished to auscultation CARDIOVASCULAR: Regular S1 S2, GI: soft, normoactive bowel sounds, : No Renal angle tenderness; EXTREMITIES: Left foot in surgical dressing MUSCULOSKELETAL: no muscle wasting NEURO: Awake; no lateralizing signs. SKIN: As discussed above PSYCH; Flat affect Weight / BMI Weight Weight: 89.5 kg Body Mass Index (BMI) 26.7 ABG / Lab / Microbiology Data 04/17/25 06:50 04/17/25 06:50 Laboratory: Laboratory Results - last 24 hr 04/16/25 16:51: POC Glucose 181 H 04/16/25 22:47: POC Glucose 161 H 04/17/25 06:03: POC Glucose 122 H 04/17/25 06:50: WBC 7.9, RBC 3.72 L, Hgb 12.6 L, Hct 37.1 L, MCV 99.7 H, MCH 33.9 H, MCHC 34.0, RDW Std Deviation 52.2 H, RDW Coeff of Jaimee 14.6, Plt Count 207, MPV 10.4, Immature Gran % (Auto) 0.500, Neut % (Auto) 70.3 H, Lymph % (Auto) 15.0 L, [place] % (Auto) 8.9, Eos % (Auto) 4.8, Baso % (Auto) 0.5, Absolute Neuts (auto) 5.5, Absolute Lymphs (auto) 1.18, Nucleated RBC % 0, Sodium 140, Potassium 4.4, Chloride 106, Carbon Dioxide 21.9, Anion Gap 13, BUN 20 H, Creatinine 1.19, Estim Creat Clear Calc 53.44, Est GFR (MDRD) Non-Af 61, BUN/Creatinine Ratio 16.8, Glucose 171 H, Calcium 9.5, Vancomycin Trough 12.9 04/17/25 11:21: POC Glucose 174 H Microbiology: Microbiology 04/15/25 20:30 Wound - Toe Gram Stain - Final 04/15/25 20:30 Wound - Toe Wound Culture - Preliminary Staphylococcus aureus 04/15/25 20:30 Wound - Toe Anaerobic Culture - Preliminary Checking for anaerobes, further studies to follow. 04/15/25 18:00 Wound - Toe Skin and Soft Tissue MRSA/MSSA (PCR - Final Staphylococcus aureus D/C Instructions Discharge Diet: 1800 Calorie Control Diet Discharge Activity: Return to Normal Activity Call your doctor if you observe: Fever of 101 or Higher, Shortness of breath, Fainting spells and Chest pain DC O2, CPAP, BIPAP Needs Home O2 Discharge instructions: No Meaningful Use Info Meaningful Use Meaningful Use Diagnoses (Choose all that apply): None applicable Ischemic Stroke Statin Dosing Therapy Reference: STATIN DOSE THERAPY REFERENCE: * Patients > 75 years receive moderate or high dose statin therapy. * Patients 75 years or YOUNGER should receive HIGH intensity statin dose unless contraindicated. You will be required to document reason for non-treatment if statin daily dose does not meet guidelines. HIGH DOSE STATIN THERAPY DAILY Atorvastatin > than or = to 40 mg Rosuvastatin > than or = to 20 mg Amlodipine + Atorvastatin > than or = to 2.5/40 mg Ezetimibe + Simvastatin 10/80 mg Simvastatin 80mg Discharge Plan Admission Admit Date/Time: 04/15/25 17:21 Attending Provider: Coco Pepe Primary Care Provider: Zach Turner Consulting Providers: Patrick Rojas; Latonia Berry Discharge Orders/Prescriptions Prescriptions: New cefdinir 300 mg capsule 300 mg PO BID Qty: 80 0RF hydralazine 25 mg Tablet 25 mg PO BID 60 Days Qty: 120 0RF L.acidoph,saliva-B.bif-S.therm 175 mg Capsule 1 cap PO BID 56 Days Qty: 112 0RF acetaminophen 325 mg Tablet 650 mg PO Q6H PRN PRN (Reason: Pain 1-10 Or Fever >100.7) Qty: 0 0RF amlodipine 10 mg tablet 10 mg PO DAILY 60 Days Qty: 60 0RF Continued Inflectra 100 mg recon soln 100 mg IV UD Patient Comments: IV Rx Instructions: 8 MG/KG, t6ssmke glucosamine HCl 1,500 mg tablet 1,500 mg PO BID Rx Instructions: administer with a meal cyanocobalamin (vitamin B-12) 100 mcg tablet 500 mcg PO DAILY glipizide 10 mg tablet 10 mg PO DAILY cholecalciferol (vitamin D3) 25 mcg (1,000 unit) tablet 25 mcg PO DAILY ginkgo biloba leaf extract 60 mg capsule 60 mg PO DAILY Rx Instructions: give with meal/snack PreserVision AREDS 4,296 mcg-226 mg-90 mg capsule 1 cap PO QDAY tamsulosin 0.4 MG capsule 0.4 mg PO QHS finasteride 5 MG tablet 5 mg PO DAILY methotrexate sodium 2.5 MG tablet 7.5 mg PO Q7D pyridoxine (vitamin B6) 50 MG tablet 100 mg PO QHS fluticasone propionate 1 SPRAY spray,suspension 2 spray NASAL DAILY PRN (Reason: Nasal Congestion) folic acid 1 mg tablet 4 mg PO DAILY oxybutynin chloride 5 MG tablet 5 mg PO QHS multivitamin with folic acid 1 TABLET tablet 1 tab PO DAILY furosemide [Lasix] 20 mg tablet 20 mg PO DAILY PRN (Reason: edema) lactulose [Enulose] 10 gram/15 mL solution 15 ml PO QHS Eliquis 5 mg tablet 5 mg PO BID multivitamin [Daily Multi-Vitamin] Tablet 1 tab PO DAILY metoprolol succinate 100 mg tablet extended release 24 hr 100 mg PO BID Qty: 180 3RF pravastatin 40 mg tablet 40 mg PO QHS Qty: 90 3RF Discontinued hydrochlorothiazide 12.5 mg capsule 12.5 mg PO QDAY doxycycline hyclate 100 mg capsule 100 mg PO Q12H amlodipine 2.5 mg tablet 2.5 mg PO DAILY Qty: 90 3RF lisinopril 40 mg tablet 40 mg PO DAILY Qty: 90 3RF Referrals / Follow Up: Zach Turner MD [Primary Care Provider] - Within 2 Weeks Patrick Rojas DPM [Med Staff - Active Staff] - Within 1 Week Latonia Berry MD [Med Staff - Active Staff] - Within 2 Weeks Disposition Disposition (needs filled in before D/C Order can be placed): Home Health Service Charges/Coding Visit Charges Inpatient E&M: 86632 Disch Hosp >30min 04/17/25 1352 <Electronically signed by Coco Pepe MD> Cosigner Signature (if applicable): CC: Dr. Coco Pepe MD; Dr. 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 Other psoriasis Psoriasis Other psoriasis Psoriatic arthritis Psoriatic arthropathy Other care home (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 History of malignant neoplasm of skin Personal history of other malignant neoplasm of skin Long-term current use of high risk medication other than anticoagulant Personal history of other malignant neoplasm of skin Encounter for long-term (current) use of non-steroidal anti-inflammatories 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, intermodal dispatcher, current use Encounter for long-term (current) use of other medications 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 (current) use of antibiotics Osteoarthritis of both knees, unspecified osteoarthritis type Cervical disc disorder, unspecified, unspecified cervical region Primary osteoarthritis of both knees Primary localized osteoarthrosis, lower leg Cervical disc disorder Other and unspecified disc disorder of cervical region [facility] Diagnosis Onset Date Resolution Status Essential hypertension chron ic Hyperlipidemia chronic Paroxysmal ventricular tachycardia chronic Premature atrial contractions chronic Supraventricular tachycardia [facility] Work Phone: Evaluation note* Diagnosis Onset Date Resolution Status Essential hypertension chron ic Hyperlipidemia chronic Paroxysmal ventricular tachycardia chronic Premature atrial contractions chronic Supraventricular tachycardia chronic Decubitus ulcer limited to breakdown of skin (stage 2) acute [id number] [facility] Work Phone: Evaluation note* Diagnosis Psoriatic arthritis- Primary Psoriatic arthropathy [...] osteomyelitis Personal history of other musculoskeletal disorders 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 (current) use of antibiotics Long-term current use of high risk medication other than anticoagulant 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, care home, current use Encounter for long-term (current) use of other medications On statin therapy Other care home (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 Personal history of other malignant neoplasm of skin Cervical disc disorder Other and unspecified disc disorder of cervical region Cervical disc disorder, unspecified, unspecified cervical region Primary osteoarthritis of both knees Primary localized osteoarthrosis, lower leg Seborrheic eczema Other seborrheic dermatitis Eczema, unspecified type Encounter for long-term (current) use of non-steroidal anti-inflammatories [facility] 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 Osteoarthritis of both knees, unspecified osteoarthritis type [facility] Diagnosis Onset Date Resolution Status Decubitus ulcer limited to breakdown of skin (stage 2) acute [id number] acute Decubitus ulcer limited to breakdown of skin (stage 2) acute [id number] [facility] Work Phone: Evaluation note* Diagnosis Onset Date Resolution Status Decubitus ulcer limited to breakdown of skin (stage 2) acute [id number] acute Decubitus ulcer limited to breakdown of skin (stage 2) acute [id number] acute Decubitus ulcer limited to breakdown of skin (stage 2) acute [id number] [facility] Work Phone: Evaluation note* Diagnosis Onset Date Resolution Status Decubitus ulcer limited to breakdown of skin (stage 2) acute [id number] acute Decubitus ulcer limited to breakdown of skin (stage 2) acute [id number] acute Decubitus ulcer limited to breakdown of skin (stage 2) acute [id number] acute Decubitus ulcer limited to breakdown of skin (stage 2) acute [id number] [facility] Work Phone: evaluation note* Diagnosis Onset Date Resolution Status Decubitus ulcer limited to breakdown of skin (stage 2) acute [id number] acute Decubitus ulcer limited to breakdown of skin (stage 2) acute [id number] acute Decubitus ulcer limited to breakdown of skin (stage 2) acute [id number] acute Decubitus ulcer limited to breakdown of skin (stage 2) acute [id number] acute Decubitus ulcer limited to breakdown of skin (stage 2) acute [id number] [facility] Work Phone: Evaluation note* Diagnosis Psoriatic arthritis- Primary Psoriatic arthropathy [...] other than anticoagulant On statin therapy Other care home (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 Cervical disc disorder Other and unspecified disc disorder of cervical region Cervical disc disorder, unspecified, unspecified cervical region Primary osteoarthritis of both knees Primary localized osteoarthrosis, lower leg [facility] Diagnosis Onset Date Resolution Status Decubitus ulcer limited to breakdown of skin (stage 2) acute [id number] acute Decubitus ulcer limited to breakdown of skin (stage 2) acute [id number] acute Acquired hallux extensus acu te Acquired hammer toe deformit y of lesser toe of left foot acute Decubitus ulcer limited to breakdown of skin (stage 2) acute [id number] acute Chronic ulcer of right foot with fat layer exposed chronic Diabetes mellitus chronic Diabetic foot ulcer associat ed with type 2 diabetes mellitus chronic Non-pressure chronic ulcer o f other part of left foot with fat layer exposed chronic [facility] Work Phone: Evaluation note* Diagnosis Onset Date Resolution Status Decubitus ulcer limited to breakdown of skin (stage 2) acute [id number] acute Decubitus ulcer limited to breakdown of skin (stage 2) acute [id number] acute Acquired hallux extensus acu te Acquired hammer toe deformit y of lesser toe of left foot acute Decubitus ulcer limited to breakdown of skin (stage 2) acute [id number] acute Chronic ulcer of right foot with fat layer exposed chronic Diabetes mellitus chronic Diabetic foot ulcer associat ed with type 2 diabetes mellitus chronic Non-pressure chronic ulcer o f other part of left foot with fat layer exposed chronic Cellulitis of left foot acut e Diabetic infection of left foot acute [facility] Work Phone: Evaluation note* Diagnosis Onset Date Resolution Status Decubitus ulcer limited to breakdown of skin (stage 2) acute [id number] acute Decubitus ulcer limited to breakdown of skin (stage 2) acute [id number] acute Acquired hallux extensus acu te Acquired hammer toe deformit y of lesser toe of left foot acute Decubitus ulcer limited to breakdown of skin (stage 2) acute [id number] acute Chronic ulcer of right foot with fat layer exposed chronic Diabetes mellitus chronic Diabetic foot ulcer associat ed with type 2 diabetes mellitus chronic Non-pressure chronic ulcer o f other part of left foot with fat layer exposed chronic Acquired hammer toe of left foot acute Cellulitis of left foot acut e Deformity of toe of left foot acute Diabetes mellitus with diabetic polyneuropathy acute Diabetic infection of left foot acute Pressure ulcer of toe of right foot, stage 2 acute Diabetic foot ulcer associat ed with type 2 diabetes mellitus chronic [id number] [facility] Work Phone: Evaluation note* Diagnosis Onset Date Resolution Status Decubitus ulcer limited to breakdown of skin (stage 2) acute [id number] acute Acquired hallux extensus acu te Acquired hammer toe deformit y of lesser toe of left foot acute Decubitus ulcer limited to breakdown of skin (stage 2) acute [id number] acute Chronic ulcer of right foot with fat layer exposed chronic Diabetes mellitus chronic Diabetic foot ulcer associat ed with type 2 diabetes mellitus chronic Non-pressure chronic ulcer o f other part of left foot with fat layer exposed chronic Acquired hammer toe of left foot acute Cellulitis of left foot acut e Deformity of toe of left foot acute Diabetes mellitus with diabetic polyneuropathy acute Diabetic infection of left foot acute Pressure ulcer of toe of right foot, stage 2 acute Diabetic foot ulcer associat ed with type 2 diabetes mellitus chronic [id number] [facility] Work Phone: Evaluation note* Diagnosis Onset Date Resolution Status Acquired hallux extensus acu te Acquired hammer toe deformit y of lesser toe of left foot acute Decubitus ulcer limited to breakdown of skin (stage 2) acute [id number] acute Chronic ulcer of right foot with fat layer exposed chronic Diabetes mellitus chronic Diabetic foot ulcer associat ed with type 2 diabetes mellitus chronic Non-pressure chronic ulcer o f other part of left foot with fat layer exposed chronic Acquired hammer toe of left foot acute Cellulitis of left foot acut e Deformity of toe of left foot acute Diabetes mellitus with diabetic polyneuropathy acute Diabetic infection of left foot acute Pressure ulcer of toe of right foot, stage 2 acute Diabetic foot ulcer associat ed with type 2 diabetes mellitus chronic [id number] [facility] Work Phone: Evaluation note* Diagnosis Onset Date Resolution Status Acquired hammer toe of left foot acute Cellulitis of left foot acut e Deformity of toe of left foot acute Diabetes mellitus with diabetic polyneuropathy acute Diabetic infection of left foot acute Pressure ulcer of toe of right foot, stage 2 acute Diabetic foot ulcer associat ed with type 2 diabetes mellitus chronic [id number] [facility] Work Phone: Evaluation note* Diagnosis Psoriatic arthritis- Primary Psoriatic arthropathy [...] high risk medication other than anticoagulant 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, intermodal dispatcher, current use Encounter for long-term (current) use of other medications On statin therapy Other care home (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 Cervical disc disorder Other and unspecified disc disorder of cervical region Cervical disc disorder, unspecified, unspecified cervical region Primary osteoarthritis of both knees Primary localized osteoarthrosis, lower leg Infliximab (Remicade) long-term use documented [facility] noteNo assessment information availableWThe Christ [facility] Work Phone: Evaluation note* Diagnosis Psoriatic arthritis mutilans- Primary Psoriatic [...] of other malignant neoplasm of skin Other intermodal dispatcher (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 On statin therapy Nocturia 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, intermodal dispatcher, current use Encounter for long-term (current) use of other medications Long-term current use of high risk medication other than anticoagulant History of osteomyelitis Personal history of other musculoskeletal disorders History of malignant neoplasm of skin Personal history of other malignant neoplasm of skin Encounter for long-term (current) use of non-steroidal anti-inflammatories documented in this encounter [facility]* Diagnosis Psoriatic arthritis- Primary Psoriatic arthropathy Psoriatic arthritis mutilans Psoriatic arthropathy Hyperchromic anemia Anemia, unspecified Macrocytic anemia Unspecified deficiency anemia Abnormal renal function test Nonspecific abnormal results of kidney function study Encounter for long-term (current) use of non-steroidal anti-inflammatories History of malignant neoplasm of skin Personal history of other malignant neoplasm of skin History of osteomyelitis Personal history of other musculoskeletal disorders Infliximab (Remicade) long-term use Long-term current use of high risk medication other than anticoagulant On statin therapy Other care home (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 Personal history of other malignant neoplasm of skin Cervical disc disorder Other and unspecified disc disorder of cervical region Cervical disc disorder, unspecified, unspecified cervical region Primary osteoarthritis of both knees Primary localized osteoarthrosis, lower leg Psoriasis Other psoriasis Pustulosis palmaris et plantaris Other psoriasis Asteatosis cutis Other specified disease of sebaceous glands 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, care home, current use Encounter for long-term (current) use of other medications Seborrheic eczema Other seborrheic dermatitis Eczema, unspecified type 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 Osteoarthritis of both knees, unspecified osteoarthritis type documented in this encounter [facility]* Diagnosis Neoplasm of uncertain behavior of skin- Primary Actinic keratoses Actinic keratosis documented [facility]* Diagnosis 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 [facility] Diagnosis Neoplasm of uncertain behavior of skin- Primary Actinic keratoses Actinic keratosis documented in this encounter [facility]* Diagnosis Actinic keratoses- Primary Actinic keratosis 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 [facility]* Diagnosis Psoriatic arthritis- Primary Psoriatic arthropathy Primary osteoarthritis of both knees Primary localized osteoarthrosis, lower leg Cervical disc disorder, unspecified, unspecified cervical region Cervical disc disorder Other and unspecified disc disorder of cervical region Macrocytic anemia Unspecified deficiency anemia Hyperchromic anemia Anemia, unspecified Vesicular palmoplantar eczema Dyshidrosis Senile lentigo Other dyschromia Seborrheic keratosis Other seborrheic keratosis Seborrheic eczema Other seborrheic dermatitis Pustulosis palmaris et plantaris Other psoriasis Psoriasis Other psoriasis Photoaged skin Other chronic dermatitis due to solar radiation Other skin changes due to chronic exposure to nonionizing radiation Eczema, unspecified type Asteatosis cutis Other specified disease of sebaceous glands Actinic keratosis Other proteinuria Other care home (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 On statin therapy 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, care home, current use Encounter for long-term (current) use of other medications Nocturia Long-term current use of high risk medication other than anticoagulant [facility] use of drug Encounter for long-term (current) use of other medications Infliximab (Remicade) long-term use History of osteomyelitis Personal history of other musculoskeletal disorders History of malignant neoplasm of skin Personal history of other malignant neoplasm of skin Difficulty in urination Other symptoms involving urinary system Current use of intermodal dispatcher anticoagulation Encounter for long-term (current) use of anticoagulants Abnormal renal function test Nonspecific abnormal results of kidney function study Psoriatic arthritis mutilans Psoriatic arthropathy Encounter for long-term (current) use of non-steroidal anti-inflammatories [facility] 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 Osteoarthritis of both knees, unspecified osteoarthritis type documented in this encounter [facility]* Diagnosis Stage 3b chronic kidney disease- Primary documented in this encounter [facility]* Diagnosis Stage 3b chronic kidney disease [facility] Diagnosis Stage 3b chronic kidney disease- Primary [facility] Diagnosis Skin lesion- Primary Unspecified disorder of skin and subcutaneous tissue Pruritus Unspecified pruritic disorder documented in this encounter [facility] Discharge instructions Additional Instructions Date of Discharge: 02/27/23[facility] Work Phone: Hospital Discharge instructionsAdditional Instructions Return back to the emergency department if bleeding your symptoms symptoms reoccur or worsen. Follow-up with GI for your GI bleed and pancreatic duct stone. 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 Procedures MD OFFICE/[facility] [place] 60 MINUTES Georgina Moore MD [address] [facility], [address] [place] [address] Jordana Villarreal MD [address] [place] [address] Referral ID Status Reason Start Date Expiration Date V isits Requested Visits Authorized [id number] Closed Specialty Services Required 07/23/2024 07/23/2025 1 1 [facility] for referral (narrative)No reason for referral information availableWThe Christ Hospital Work Phone: Reason for visit Narrative* Radiology (Routine) - Closed Specialty Diagnoses / Procedures Referred By Vanesa t Referred To Contact Diagnoses Stage 3b chronic kidney disease Procedures US RENAL RETROPERITONEAL Christina Cartagena MD [address] [place] [address] Phone: tel: fax: Referral ID Status Reason Start Date Expiration Date Visits Re quested Visits Authorized [id number] Closed 02/28/2025 03/25/2026 1 [facility] Family History No Family History Records Found Relationship Condition Age at Onset Recorded Date/T emily father Malignant neoplasm Unknown mother Depression Unknown Relationship Condition Age at Onset Recorded Date/T emily father Malignant neoplasm Unknown mother Depression Unknown uncle Myocardial infarction Unknown son Cerebrovascular accident (CVA) Unknown Advance Directives No Advanced Directives Records Found Advance Directive Response Recorded Date/ Time Advance Directives Yes February 02 11:57am Living Will Yes July 20 7:07pm Power of Coastal/Harbor Defense Officer Yes July 20, 2021 7:07pm Advance Directive Response Recorded Date/ Time Advance Directives Yes February 02 11:57am Living Will No February 22, 2022 1:40pm Power of Coastal/Harbor Defense Officer Yes February 22 1:40pm Advance Directive Response Recorded Date/ Time Name of Medical Power of Coastal/Harbor Defense Officer DELMAR HATCH February 22, 2022 1:40pm Advance Directives Yes February 02 11:57am Living Will No February 22, 2022 1:40pm Power of Coastal/Harbor Defense Officer Yes February 22 1:40pm Advance Directive Response Recorded Date/ Time Advance Directives Yes February 02 10:57am Living Will No February 22, 2022 12:40pm Power of Coastal/Harbor Defense Officer Yes February 22 12:40pm Advance Directive Response Recorded Date/ Time Advance Directives Yes February 02 11:57am Living Will No February 25, 2023 12:33pm Power of Coastal/Harbor Defense Officer No February 25 12:33pm Advance Directive Response Recorded Date/ Time Advance Directives Yes February 02 11:57am Living Will Yes February 25, 2023 5:23pm Power of Coastal/Harbor Defense Officer No February 25 5:23pm Advance Directive Response Recorded Date/ Time Advance Directives Yes February 02 10:57am Living Will Yes February 25, 2023 4:23pm Power of Coastal/Harbor Defense Officer No February 25 4:23pm Advance Directive Response Recorded Date/ Time Advance Directives Yes February 02 11:57am Advance Directive Response Recorded Date/ Time Living Will Yes February 25, 2023 5:23pm Do you have a Healthcare Power of Coastal/Harbor Defense Officer? No February 25, 2023 5:23pm Advance Directives Yes February 02 11:57am Advance Directive Response Recorded Date/ Time Living Will Yes February 25, 2023 5:23pm Do you have a Healthcare Power of Coastal/Harbor Defense Officer? No February 25, 2023 5:23pm Do you have a Healthcare Power of Coastal/Harbor Defense Officer? Yes April 15, 2025 3:27pm Advance Directives Yes February 02 11:57am Advance Directive Response Recorded Date/ Time Living Will Yes February 25, 2023 5:23pm Do you have a Healthcare Power of Coastal/Harbor Defense Officer? No February 25, 2023 5:23pm Do you have a Healthcare Power of Coastal/Harbor Defense Officer? Yes April 15, 2025 6:22pm Advance Directives Yes February 02 11:57am Advance Directive Response Recorded Date/ Time Living Will Yes February 25, 2023 5:23pm Do you have a Healthcare Power of Coastal/Harbor Defense Officer? No February 25, 2023 5:23pm Living Will Yes March 13, 2025 8:41pm Do you have a Healthcare Power of Coastal/Harbor Defense Officer? No March 13, 2025 8:41pm Do you have a Healthcare Power of Coastal/Harbor Defense Officer? Yes April 15, 2025 6:22pm Advance Directives Yes February 02 11:57am Advance Directive Response Recorded Date/ Time Living Will Yes February 25, 2023 5:23pm Do you have a Healthcare Power of Coastal/Harbor Defense Officer? No February 25, 2023 5:23pm Do you have a Healthcare Power of Coastal/Harbor Defense Officer? Yes June 21, 2025 4:38pm Living Will Yes March 13, 2025 8:41pm Do you have a Healthcare Power of Coastal/Harbor Defense Officer? No March 13, 2025 8:41pm Do you have a Healthcare Power of Coastal/Harbor Defense Officer? Yes April 15, 2025 6:22pm Advance Directives Yes February 02 11:57am History of Present Illness * Pablo Wilson, Coco Carter, DO - 10/08/2019 10:45 AM EST History [...] high risk medication other than anticoagulant 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, care home, current use Other intermodal dispatcher (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 Eczema, unspecified type Cervical [...] documented in this encounter* Coco Shah Jr., - 09/22/2020 11:30 AM EST History of [...] Location: knee, right Select Pain Scale: DVPRS ([employer] [...] of other malignant neoplasm of skin Other intermodal dispatcher (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, care home, current use Long-term current use of high [...] in 6 months documented in this encounter* Pablo Wilson, Coco Carter, DO - 01/22/2019 7:45 AM EDT History [...] 8 weeks. Patient had lab 12/2018 in [place] but I do not have the results [...] high risk medication other than anticoagulant 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, intermodal dispatcher, current use Other intermodal dispatcher (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 Cervical disc disorder Cervical [...] high risk medication other than anticoagulant 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, care home, current use Encounter for long-term (current) use of other medications Other care home (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 Eczema, unspecified type Cervical disc disorder Other and unspecified disc disorder of cervical region Cervical disc disorder, unspecified, unspecified cervical region Osteoarthritis of both knees, unspecified osteoarthritis type Primary osteoarthritis of both knees Primary localized osteoarthrosis, lower leg Psoriasis Other psoriasis 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 Encounter for long-term (current) use of non-steroidal anti-inflammatories Diagnosis Psoriatic arthritis mutilans- Primary Psoriatic arthropathy Psoriatic arthritis Psoriatic arthropathy Psoriasis Other psoriasis Eczema, unspecified type Personal history of other malignant neoplasm of skin Other intermodal dispatcher (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, intermodal dispatcher, current use Encounter for long-term (current) use [...] high risk medication other than anticoagulant 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, care home, current use Encounter for long-term (current) use of other medications Other intermodal dispatcher (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 Claudication Peripheral vascular disease, unspecified Osteoarthritis of both knees, unspecified osteoarthritis type Primary osteoarthritis of both knees Primary localized osteoarthrosis, lower leg Eczema, unspecified type Psoriasis Other psoriasis Diagnosis Psoriatic arthritis 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 Other psoriasis Long-term current use of high risk medication other than anticoagulant 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, care home, current use Encounter for long-term (current) use of other medications Other care home (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 Cervical disc disorder Other and unspecified disc disorder of cervical region Cervical disc disorder, unspecified, unspecified cervical region Osteoarthritis of both knees, unspecified osteoarthritis type Primary osteoarthritis of both knees Primary localized osteoarthrosis, lower leg Psoriasis Other psoriasis 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 Encounter for long-term (current) use of non-steroidal anti-inflammatories Asteatosis cutis Other specified disease of sebaceous glands Seborrheic eczema Other seborrheic dermatitis Eczema, unspecified type Chief Complaint and Reason for Visit Chief Complaint PSORIATIC ARTHRITIS COVID TEST STANDING ORDER PSORIATIC ARTHRITIS 6 M FU 4 ORDERING DRS Reason for Visit Essential hypertensi on Hyperlipidemia Paroxysmal ventricular tachycardia Premature atrial contractions Supraventricular tachycardia Chief Complaint COVID TEST STANDING ORDER PSORIATIC ARTHRITIS 6 M FU 4 ORDERING DRS PSORIATIC ARTHRITIS Reason for Visit Essential hypertensi on Hyperlipidemia Paroxysmal ventricular tachycardia Premature atrial contractions Supraventricular tachycardia Chief Complaint COVID TEST STANDING ORDER PSORIATIC ARTHRITIS 6 M FU 4 ORDERING DRS PSORIATIC ARTHRITIS INFECTION IN FOOT Reason for Visit Essential hypertensi on Hyperlipidemia Paroxysmal ventricular tachycardia Premature atrial contractions Supraventricular tachycardia Chief Complaint PSORIATIC ARTHRITIS 6 M FU 4 ORDERING DRS PSORIATIC ARTHRITIS INFECTION IN FOOT PSORIATIC ARTHRITIS Reason for Visit Essential hypertensi on Hyperlipidemia Paroxysmal ventricular tachycardia Premature atrial contractions Supraventricular tachycardia Chief Complaint 6 M FU 4 ORDERING DRS PSORIATIC ARTHRITIS INFECTION IN FOOT PSORIATIC ARTHRITIS wound STANDING ORDER wound wound wound wound Reason for Visit Essential hypertensi on Hyperlipidemia Paroxysmal ventricular tachycardia Premature atrial contractions Supraventricular tachycardia Decubitus ulcer limited to breakdown of skin (stage 2) [id number] Chief Complaint PSORIATIC ARTHRITIS INFECTION IN FOOT PSORIATIC ARTHRITIS wound STANDING ORDER wound wound wound wound wound wound wound PSORIATIC ARTHRITIS wound wound Reason for Visit Decubitus ulcer limi brit to breakdown of skin (stage 2) [id number] Decubitus ulcer limited to breakdown of skin (stage 2) [id number] Chief Complaint INFECTION IN FOOT PSORIATIC ARTHRITIS wound STANDING ORDER wound wound wound wound wound wound wound PSORIATIC ARTHRITIS wound wound SINUSITIS Reason for Visit Decubitus ulcer limi brit to breakdown of skin (stage 2) [id number] Decubitus ulcer limited to breakdown of skin (stage 2) [id number] Chief Complaint INFECTION IN FOOT PSORIATIC ARTHRITIS wound STANDING ORDER wound wound wound wound wound wound wound PSORIATIC ARTHRITIS wound wound SINUSITIS wound wound Reason for Visit Decubitus ulcer limi brit to breakdown of skin (stage 2) [id number] Decubitus ulcer limited to breakdown of skin (stage 2) [id number] Decubitus ulcer limited to breakdown of skin (stage 2) [id number] Chief Complaint PSORIATIC ARTHRITIS wound STANDING ORDER wound wound wound wound wound wound wound PSORIATIC ARTHRITIS wound wound SINUSITIS wound S/O wound wound wound wound wound Reason for Visit Decubitus ulcer limi brit to breakdown of skin (stage 2) [id number] Decubitus ulcer limited to breakdown of skin (stage 2) [id number] Decubitus ulcer limited to breakdown of skin (stage 2) [id number] Chief Complaint PSORIATIC ARTHRITIS wound STANDING ORDER wound wound wound wound wound wound wound PSORIATIC ARTHRITIS wound wound SINUSITIS wound S/O wound wound wound wound wound PSORIATIC ARTHRITIS wound wound Reason for Visit Decubitus ulcer limi brit to breakdown of skin (stage 2) [id number] Decubitus ulcer limited to breakdown of skin (stage 2) [id number] Decubitus ulcer limited to breakdown of skin (stage 2) [id number] Decubitus ulcer limited to breakdown of skin (stage 2) [id number] Chief Complaint wound STANDING ORDER wound wound wound wound wound wound wound PSORIATIC ARTHRITIS wound wound SINUSITIS wound S/O wound wound wound wound wound PSORIATIC ARTHRITIS wound wound wound wound wound Reason for Visit Decubitus ulcer limi brit to breakdown of skin (stage 2) [id number] Decubitus ulcer limited to breakdown of skin (stage 2) [id number] Decubitus ulcer limited to breakdown of skin (stage 2) [id number] Decubitus ulcer limited to breakdown of skin (stage 2) [id number] Chief Complaint wound wound wound wound wound wound PSORIATIC ARTHRITIS wound wound SINUSITIS wound S/O wound wound wound wound wound PSORIATIC ARTHRITIS wound wound wound wound wound wound S/O wound wound PSORIATIC ARTHRITIS Reason for Visit Decubitus ulcer limi brit to breakdown of skin (stage 2) [id number] Decubitus ulcer limited to breakdown of skin (stage 2) [id number] Decubitus ulcer limited to breakdown of skin (stage 2) [id number] Decubitus ulcer limited to breakdown of skin (stage 2) [id number] Decubitus ulcer limited to breakdown of skin (stage 2) [id number] Chief Complaint wound wound wound PSORIATIC ARTHRITIS wound wound SINUSITIS wound S/O wound wound wound wound wound PSORIATIC ARTHRITIS wound wound wound wound wound wound S/O wound PSORIATIC ARTHRITIS FLU SHOT wound wound Reason for Visit Decubitus ulcer limi brit to breakdown of skin (stage 2) [id number] Decubitus ulcer limited to breakdown of skin (stage 2) [id number] Decubitus ulcer limited to breakdown of skin (stage 2) [id number] Decubitus ulcer limited to breakdown of skin (stage 2) [id number] Chief Complaint wound S/O wound wound wound wound wound PSORIATIC ARTHRITIS wound wound wound wound wound wound S/O wound PSORIATIC ARTHRITIS FLU SHOT wound wound wound wound wound PSORIATIC ARTHRITIS wound wound Reason for Visit Decubitus ulcer limi brit to breakdown of skin (stage 2) [id number] Decubitus ulcer limited to breakdown of skin (stage 2) [id number] Decubitus ulcer limited to breakdown of skin (stage 2) [id number] Decubitus ulcer limited to breakdown of skin (stage 2) [id number] Chief Complaint wound wound wound wound wound wound S/O wound PSORIATIC ARTHRITIS FLU SHOT wound wound wound wound wound PSORIATIC ARTHRITIS wound wound wound wound wound wound wound Reason for Visit Decubitus ulcer limi brit to breakdown of skin (stage 2) [id number] Decubitus ulcer limited to breakdown of skin (stage 2) [id number] Decubitus ulcer limited to breakdown of skin (stage 2) [id number] Decubitus ulcer limited to breakdown of skin (stage 2) [id number] Chief Complaint wound wound wound wound wound S/O wound PSORIATIC ARTHRITIS FLU SHOT wound wound wound wound wound PSORIATIC ARTHRITIS wound wound wound wound wound wound wound PSORIATIC ARTHRITIS Reason for Visit Decubitus ulcer limi brit to breakdown of skin (stage 2) [id number] Decubitus ulcer limited to breakdown of skin (stage 2) [id number] Decubitus ulcer limited to breakdown of skin (stage 2) [id number] Decubitus ulcer limited to breakdown of skin (stage 2) [id number] Chief Complaint wound wound wound S/O wound PSORIATIC ARTHRITIS FLU SHOT wound wound wound wound wound PSORIATIC ARTHRITIS wound wound wound wound wound wound wound PSORIATIC ARTHRITIS wound S/O EVERY 3 MONTHS wound wound Reason for Visit Decubitus ulcer limi brit to breakdown of skin (stage 2) [id number] Decubitus ulcer limited to breakdown of skin (stage 2) [id number] Decubitus ulcer limited to breakdown of skin (stage 2) [id number] Decubitus ulcer limited to breakdown of skin (stage 2) [id number] Decubitus ulcer limited to breakdown of skin (stage 2) [id number] Chief Complaint wound S/O wound PSORIATIC ARTHRITIS FLU SHOT wound wound wound wound wound PSORIATIC ARTHRITIS wound wound wound wound wound wound wound PSORIATIC ARTHRITIS wound S/O EVERY 3 MONTHS wound wound Reason for Visit Decubitus ulcer limi brit to breakdown of skin (stage 2) [id number] Decubitus ulcer limited to breakdown of skin (stage 2) [id number] Decubitus ulcer limited to breakdown of skin (stage 2) [id number] Decubitus ulcer limited to breakdown of skin (stage 2) [id number] Chief Complaint wound wound wound wound wound PSORIATIC ARTHRITIS wound S/O EVERY 3 MONTHS wound wound wound PSORIATIC ARTHRITIS wound PSORIATIC ARTHRITIS Reason for Visit Decubitus ulcer limi brit to breakdown of skin (stage 2) [id number] Decubitus ulcer limited to breakdown of skin (stage 2) [id number] 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 Decubitus ulcer limited to breakdown of skin (stage 2) [id number] Chronic ulcer of right foot with fat layer exposed Diabetes mellitus Diabetic foot ulcer associated with type 2 diabetes mellitus Non-pressure chronic ulcer of other part of left foot with fat layer exposed Chief Complaint wound wound wound PSORIATIC ARTHRITIS wound S/O EVERY 3 MONTHS wound wound wound PSORIATIC ARTHRITIS wound PSORIATIC ARTHRITIS CELLULITIS Reason for Visit Decubitus ulcer limi brit to breakdown of skin (stage 2) [id number] Decubitus ulcer limited to breakdown of skin (stage 2) [id number] 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 Decubitus ulcer limited to breakdown of skin (stage 2) [id number] Chronic ulcer of right foot with fat layer exposed Diabetes mellitus Diabetic foot ulcer associated with type 2 diabetes mellitus Non-pressure chronic ulcer of other part of left foot with fat layer exposed Cellulitis of left foot Diabetic infection of left foot Chief Complaint wound wound wound PSORIATIC ARTHRITIS wound S/O EVERY 3 MONTHS wound wound wound PSORIATIC ARTHRITIS wound PSORIATIC ARTHRITIS CELLULITIS Reason for Visit Decubitus ulcer limi brit to breakdown of skin (stage 2) [id number] Decubitus ulcer limited to breakdown of skin (stage 2) [id number] 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 Decubitus ulcer limited to breakdown of skin (stage 2) [id number] Chronic ulcer of right foot with fat layer exposed Diabetes mellitus Diabetic foot ulcer associated with type 2 diabetes mellitus Non-pressure chronic ulcer of other part of left foot with fat layer exposed Acquired hammer toe of left foot Cellulitis of left foot Deformity of toe of left foot Diabetes mellitus with diabetic polyneuropathy Diabetic infection of left foot Pressure ulcer of toe of right foot, stage 2 Diabetic foot ulcer associated with type 2 diabetes mellitus [id number] Chief Complaint wound wound wound PSORIATIC ARTHRITIS wound PSORIATIC ARTHRITIS CELLULITIS Cellulitis Cellulitis Cellulitis PSORIATIC ARTHRITIS Reason for Visit Decubitus ulcer limi brit to breakdown of skin (stage 2) [id number] 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 Decubitus ulcer limited to breakdown of skin (stage 2) [id number] Chronic ulcer of right foot with fat layer exposed Diabetes mellitus Diabetic foot ulcer associated with type 2 diabetes mellitus Non-pressure chronic ulcer of other part of left foot with fat layer exposed Acquired hammer toe of left foot Cellulitis of left foot Deformity of toe of left foot Diabetes mellitus with diabetic polyneuropathy Diabetic infection of left foot Pressure ulcer of toe of right foot, stage 2 Diabetic foot ulcer associated with type 2 diabetes mellitus [id number] Chief Complaint wound PSORIATIC ARTHRITIS CELLULITIS Cellulitis Cellulitis Cellulitis PSORIATIC ARTHRITIS 2 ORDERING DOCTORS Reason for Visit Acquired hallux exte nsus 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 Decubitus ulcer limited to breakdown of skin (stage 2) [id number] Chronic ulcer of right foot with fat layer exposed Diabetes mellitus Diabetic foot ulcer associated with type 2 diabetes mellitus Non-pressure chronic ulcer of other part of left foot with fat layer exposed Acquired hammer toe of left foot Cellulitis of left foot Deformity of toe of left foot Diabetes mellitus with diabetic polyneuropathy Diabetic infection of left foot Pressure ulcer of toe of right foot, stage 2 Diabetic foot ulcer associated with type 2 diabetes mellitus [id number] Chief Complaint PSORIATIC ARTHRITIS CELLULITIS Cellulitis Cellulitis Cellulitis PSORIATIC ARTHRITIS 2 ORDERING DOCTORS Reason for Visit Acquired hammer toe of left foot Cellulitis of left foot Deformity of toe of left foot Diabetes mellitus with diabetic polyneuropathy Diabetic infection of left foot Pressure ulcer of toe of right foot, stage 2 Diabetic foot ulcer associated with type 2 diabetes mellitus [id number] Chief Complaint PSORIATIC ARTHRITIS CELLULITIS Cellulitis Cellulitis Cellulitis PSORIATIC ARTHRITIS 2 ORDERING DOCTORS NON PRESSURE CHRONIC ULCER OF PART LEFT FOOT PVD Reason for Visit Acquired hammer toe of left foot Cellulitis of left foot Deformity of toe of left foot Diabetes mellitus with diabetic polyneuropathy Diabetic infection of left foot Pressure ulcer of toe of right foot, stage 2 Diabetic foot ulcer associated with type 2 diabetes mellitus [id number] Chief Complaint PSORIATIC ARTHRITIS CELLULITIS Cellulitis Cellulitis Cellulitis PSORIATIC ARTHRITIS 2 ORDERING DOCTORS NON PRESSURE CHRONIC ULCER OF PART LEFT FOOT PVD DINING WITH DIABETES PSORIATIC ARTHRITIS Reason for Visit Acquired hammer toe of left foot Cellulitis of left foot Deformity of toe of left foot Diabetes mellitus with diabetic polyneuropathy Diabetic infection of left foot Pressure ulcer of toe of right foot, stage 2 Diabetic foot ulcer associated with type 2 diabetes mellitus [id number] Chief Complaint CELLULITIS Cellulitis Cellulitis Cellulitis PSORIATIC ARTHRITIS 2 ORDERING DOCTORS NON PRESSURE CHRONIC ULCER OF PART LEFT FOOT PVD PSORIATIC ARTHRITIS DINING WITH DIABETES Reason for Visit Acquired hammer toe of left foot Cellulitis of left foot Deformity of toe of left foot Diabetes mellitus with diabetic polyneuropathy Diabetic infection of left foot Pressure ulcer of toe of right foot, stage 2 Diabetic foot ulcer associated with type 2 diabetes mellitus [id number] Chief Complaint PSORIATIC ARTHRITIS 2 ORDERING DOCTORS NON PRESSURE CHRONIC ULCER OF PART LEFT FOOT PVD PSORIATIC ARTHRITIS DINING WITH DIABETES PSORIATIC ARTHRITIS Chief Complaint PSORIATIC ARTHRITIS DINING WITH DIABETES PSORIATIC ARTHRITIS PSORIATIC ARTHRITIS Chief Complaint DINING WITH DIABETES PSORIATIC ARTHRITIS PSORIATIC ARTHRITIS PSORIATIC ARTHRITIS Chief Complaint PSORIATIC ARTHRITIS PSORIATIC ARTHRITIS PSORIATIC ARTHRITIS E ORDERS & S/O EVERY THREE MONTHS Chief Complaint PSORIATIC ARTHRITIS PSORIATIC ARTHRITIS E ORDERS & S/O EVERY THREE MONTHS PSORIATIC ARTHRITIS Chief Complaint PSORIATIC ARTHRITIS E ORDERS & S/O EVERY THREE MONTHS PSORIATIC ARTHRITIS Chief Complaint PSORIATIC ARTHRITIS E ORDERS & S/O EVERY THREE MONTHS PSORIATIC ARTHRITIS PSORIATIC ARTHRITIS Chief Complaint E ORDERS & S/O EVERY THREE MONTHS PSORIATIC ARTHRITIS PSORIATIC ARTHRITIS Chief Complaint PSORIATIC ARTHRITIS PSORIATIC ARTHRITIS PSORIATIC ARTHRITIS Chief Complaint Admit Date PSORIATIC ARTHRITIS November 09, 2024 9:54am PSORIATIC ARTHRITIS December 25, 2024 10:04am NEW PATIENT: Peripheral vascular disease January 09, 2025 9:21am PSORIATIC ARTHRITIS February 21, 2025 9:5 4am Reason for Visit Admit Date 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 09, 2025 9:21am Chief Complaint Admit Date PSORIATIC ARTHRITIS December 25, 2024 10:04am NEW PATIENT: Peripheral vascular disease January 09, 2025 9:21am PSORIATIC ARTHRITIS February 21, 2025 9:5 4am 6 M FU March 08, 2025 11: 13am LEFT FOOT March 27, 2025 9:06a m Reason for Visit Admit Date 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 09, 2025 9:21am Atrial fibrillation March 08, 2025 11: 13am Chronic kidney disease March 08, 2025 11:13am Essential hypertension March 08, 2025 11:13am Hyperlipidemia March 08, 2025 11: 13am Chief Complaint Admit Date PSORIATIC ARTHRITIS December 25, 2024 10:04am NEW PATIENT: Peripheral vascular disease January 09, 2025 9:21am PSORIATIC ARTHRITIS February 21, 2025 9:5 4am 6 M FU March 08, 2025 11: 13am LEFT FOOT March 27, 2025 9:06a m PSORIATIC ARTHRITIS April 04, 2025 9:57a m CELLULITIS April 15, 2025 5:21p m Chief Complaint Admit Date PSORIATIC ARTHRITIS December 25, 2024 10:04am NEW PATIENT: Peripheral vascular disease January 09, 2025 9:21am PSORIATIC ARTHRITIS February 21, 2025 9:5 4am 6 M FU March 08, 2025 11: 13am LEFT FOOT March 27, 2025 9:06a m PSORIATIC ARTHRITIS April 04, 2025 9:57a m CELLULITIS April 15, 2025 5:21p m Cellulitis April 16, 2025 7:28a m Cellulitis April 17, 2025 7:14a m Reason for Visit Admit Date 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 09, 2025 9:21am Atrial fibrillation March 08, 2025 11: 13am Chronic kidney disease March 08, 2025 11:13am Essential hypertension March 08, 2025 11:13am Hyperlipidemia March 08, 2025 11: 13am Cellulitis of left foot April 15, 2025 5 :21pm Cellulitis of left lower limb April 15, 2025 5:21pm Diabetes mellitus with diabetic polyneur opathy April 15, 2025 5:21pm Diabetic infection of left foot April 5:21pm Chronic kidney disease April 15, 2025 5: 21pm Diabetic foot ulcer associat ed with type 2 diabetes mellitus April 15, 2025 5:21pm Non-pressure chronic ulcer o f other part of left foot with fat layer exposed April 15, 2025 5:21pm 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 April 15, 2025 5:21pm Chief Complaint Admit Date PSORIATIC ARTHRITIS February 21, 2025 9:5 4am 6 M FU March 08, 2025 11: 13am LEFT FOOT March 27, 2025 9:06a m PSORIATIC ARTHRITIS April 04, 2025 9:57a m CELLULITIS April 15, 2025 5:21p m Cellulitis April 16, 2025 7:28a m Cellulitis April 17, 2025 7:14a m Reason for Visit Admit Date Atrial fibrillation March 08, 2025 11: 13am Chronic kidney disease March 08, 2025 11:13am Essential hypertension March 08, 2025 11:13am Hyperlipidemia March 08, 2025 11: 13am Cellulitis of left foot April 15, 2025 5 :21pm Cellulitis of left lower limb April 15, 2025 5:21pm Diabetes mellitus with diabetic polyneur opathy April 15, 2025 5:21pm Diabetic infection of left foot April 5:21pm Chronic kidney disease April 15, 2025 5: 21pm Diabetic foot ulcer associated with type 2 diabetes mellitus April 15, 2025 5:21pm Non-pressure chronic ulcer o f other part of left foot with fat layer exposed April 15, 2025 5:21pm 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 April 15, 2025 5:21pm Chief Complaint Admit Date PSORIATIC ARTHRITIS February 21, 2025 9:5 4am 6 M FU March 08, 2025 11: 13am LEFT FOOT March 27, 2025 9:06a m PSORIATIC ARTHRITIS April 04, 2025 9:57a m CELLULITIS April 15, 2025 5:21p m Cellulitis April 16, 2025 7:28a m Cellulitis April 17, 2025 7:14a m PSA May 24, 2025 11:2 8am S/O May 28, 2025 9:58 am Chief Complaint Admit Date PSORIATIC ARTHRITIS February 21, 2025 9:5 4am 6 M FU March 08, 2025 11: 13am LEFT FOOT March 27, 2025 9:06a m PSORIATIC ARTHRITIS April 04, 2025 9:57a m CELLULITIS April 15, 2025 5:21p m Cellulitis April 16, 2025 7:28a m Cellulitis April 17, 2025 7:14a m PSA May 24, 2025 11:2 8am S/O May 28, 2025 9:58 am PSORIATIC ARTHRITIS June 07, 2025 10:2 1am Chief Complaint Admit Date PSORIATIC ARTHRITIS February 21, 2025 9:5 4am 6 M FU March 08, 2025 11: 13am LEFT FOOT March 27, 2025 9:06a m PSORIATIC ARTHRITIS April 04, 2025 9:57a m CELLULITIS April 15, 2025 5:21p m Cellulitis April 16, 2025 7:28a m Cellulitis April 17, 2025 7:14a m PSA May 24, 2025 11:2 8am S/O May 28, 2025 9:58 am PSORIATIC ARTHRITIS June 07, 2025 10:2 1am gi bleed June 21, 2025 3:5 0pm Reason for Referral Specialty Diagnoses / Procedures Referred By Vanesa shultz Referred To Contact Diagnoses Psoriatic arthritis 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 Long-term current use of high risk medication other than anticoagulant 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, care home, current use Other care home (current) drug therapy Cervical disc disorder Cervical disc disorder, unspecified, unspecified cervical region Primary osteoarthritis of both knees Seborrheic eczema Eczema, unspecified type Encounter for long-term (current) use of non-steroidal anti-inflammatories [facility] 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 Osteoarthritis of both knees, unspecified osteoarthritis type Pablo Wilson, Coco Carter, DO [address] [place] [address] Referral ID Status Reason Start Date Expiration Date Visits Re quested Visits Authorized [id number] Closed 1 1 Specialty Diagnoses / Procedures Referred By Vanesa shultz Referred To Contact Diagnoses Psoriatic arthritis Psoriatic arthritis mutilans Encounter for long-term (current) use of non-steroidal anti-inflammatories Long-term current use of high risk medication other than anticoagulant Other intermodal dispatcher (current) drug therapy Cervical disc disorder Cervical disc disorder, unspecified, unspecified cervical region Primary osteoarthritis of both knees 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, intermodal dispatcher, current use Seborrheic eczema Eczema, unspecified type [facility] 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 Osteoarthritis of both knees, unspecified osteoarthritis type Pablo Wilson, Coco Carter, DO [address] [place] [address] Referral ID Status Reason Start Date Expiration Date V isits Requested Visits Authorized [id number] Pending Review 1 1 Additional Source Comments (unrecognized sect ion and content) No Status Records FoundNo Status Records FoundNo Status Records FoundNo Status Records FoundNo Status Records FoundNo Status Records FoundNo Status Records Found INFORMATION SOURCE (unrecogn ized section and content) DATE CREATED AUTHOR 05/10/2018 [facility] DATE CREATED AUTHOR AUTHOR'S ORGANIZ ATION 03/10/2023 [facility] ([place]) DATE CREATED AUTHOR AUTHOR'S ORGANIZ ATION 03/28/[address] [facility] DATE CREATED AUTHOR AUTHOR'S ORGANIZ ATION 05/04/2023 [facility] DATE CREATED AUTHOR AUTHOR'S ORGANIZ ATION 06/03/2025 [facility] DATE CREATED AUTHOR AUTHOR'S ORGANIZ ATION 06/14/2025 [facility] DATE CREATED AUTHOR AUTHOR'S ORGANIZ ATION 06/28/2025 [facility] Reason for Visit (unrecogniz ed section and content) Reason Comments Medication Refill Reason Comments Results Reason Comments Joint Pain [...] infection and is being treated by tanesha alva cnp. Patient had the front half of [...] States he is having some knee pain. Reason Comments Follow-up Patient is here toda y for his 6 Month Follow-up. Patient states he is doing okay since his last appointment. Patient states the Inflectra infusions are working. Reason Comments Skin Lesion DENTISTRY TEACHER (LMS) Reason Onset Date Comments Appointment Request 07/17/2024 Reason Comments Actinic Keratosis EVAN 07/11/2024 with Jacobo Moore([place]) Reason Comments Follow-up Patient is here for 6 month Follow-up. Patient states is having pain in the knees constantly. Having issues with balance. Reason Comments New Patient Ref- [facility] Kidney Problem Labs 09/07/24; BUN 2 6, Cr 1.40 Specialty Diagnoses / Procedures Referred By Vanesa shultz Referred To Contact Nephrology Diagnoses Psoriatic arthritis Primary osteoarthritis of both knees Cervical disc disorder, unspecified, unspecified cervical region Cervical disc disorder Macrocytic anemia Hyperchromic anemia Vesicular palmoplantar eczema Senile lentigo Seborrheic keratosis Seborrheic eczema Pustulosis palmaris et plantaris Psoriasis Photoaged skin Other skin changes due to chronic exposure to nonionizing radiation Eczema, unspecified type Asteatosis cutis Actinic keratosis Other proteinuria Other care home (current) drug therapy On statin therapy 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, care home, current use Nocturia Long-term current use of high risk medication other than anticoagulant 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 Infliximab (Remicade) long-term use History of osteomyelitis History of malignant neoplasm of skin Difficulty in urination Current use of intermodal dispatcher anticoagulation Abnormal renal function test Psoriatic arthritis shirley Shah Jr., Coco Carter, DO [address] [place] [address] Phone: tel: fax: Christina Cartagena MD [address] [facility] [place] [place] [address] Phone: tel: fax: Referral ID Status Reason Start Date Expiration Date Visits Re quested Visits Authorized [id number] Closed 01/25/2025 02/19/2026 1 1 Reason Comments Chronic Kidney Disease Labs 05/22/25BUN: 2 7Creat: 1.70 Reason Comments Skin Lesion EVAN-10/31/2024,ZB Goals (unrecognized section and content) Goals may be documented in a n alternate sectionGoals may be documented in an alternate sectionGoals may be documented in an alternate sectionGoals may be documented in an alternate sectionGoals may be documented in an alternate sectionGoals may be documented in an alternate sectionGoals may be documented in an alternate sectionGoals may be documented in an alternate sectionGoals may be documented in an alternate sectionGoals may be documented in an alternate sectionGoals may be documented in an alternate sectionGoals may be documented in an alternate sectionGoals may be documented in an alternate sectionGoals may be documented in an alternate sectionGoals may be documented in an alternate sectionGoals may be documented in an alternate sectionGoals may be documented in an alternate sectionGoals may be documented in an alternate sectionGoals may be documented in an alternate sectionGoals may be documented in an alternate sectionGoals may be documented in an alternate sectionGoals may be documented in an alternate sectionGoals may be documented in an alternate sectionGoals may be documented in an alternate sectionGoals may be documented in an alternate sectionGoals may be documented in an alternate sectionGoals may be documented in an alternate sectionGoals may be documented in an alternate sectionGoals may be documented in an alternate sectionGoals may be documented in an alternate sectionGoals may be documented in an alternate sectionGoals may be documented in an alternate sectionGoals may be documented in an alternate sectionGoals may be documented in an alternate section Care Teams (unrecognized sec tion and content) Industrial Service Technician Relationship Specialty Start Date End Date Zach Turner MD [address] [place] [address] PCP - General Family Medicine 04/18/17 Industrial Service Technician Relationship Specialty Start Date End Date Zach Turner MD [address] [place] [address] PCP - General Family Medicine 04/18/17 Team Status: Active Member Role Status Dates Dr. Zach Turenr MD Family Provider Active Dr. Zach Turner MD Primary Care Provider Active Team Status: Inactive Member Role Status Dates Dr. Zach Turner MD Primary Care Provider, Referring P chaz Active Alireza Grace PA, PA Attending Provider Active Team Status: Active Member Role Status Dates Dr. Zach Turner MD Primary Care Provider Active Tanesha Alva DENTISTRY TEACHER, DENTISTRY TEACHER-C Attending Provider, Other Pro vider Active Team Status: Active Member Role Status Dates Dr. Zach Turner MD Primary Care Provider Active Tanesha Alva DENTISTRY TEACHER, DENTISTRY TEACHER-C Attending Provi villa, Referring Provider, Other Provider Active Team Status: Inactive Member Role Status Dates Dr. Zach Turner MD Primary Care Provider Active Dr. Coco Shah Jr., MD Attending Provider, Ref erring Provider Active Team Status: Inactive Member Role Status Dates Dr. Zach Turner MD Primary Care Provider Active Tanesha Alva DENTISTRY TEACHER, DENTISTRY TEACHER-C Attending Provider Active Team Status: Inactive Member Role Status Dates Dr. Zach Turner MD Primary Care Provide r, Attending Provider, Referring Provider Active Team Status: Inactive Member Role Status Dates Dr. Zach Turner MD Primary Care Provider Active Tanesha Alva DENTISTRY TEACHER, DENTISTRY TEACHER-C Attending Provider, Referring Provider Active Team Status: Active Member Role Status Dates Dr. Zach Turner MD Primary Care Provider Active Tanesha Alva NP, DENTISTRY TEACHER-C Attending Provider, Referring Provider Active Team Status: Active Member Role Status Dates Dr. Zach Turner MD Primary Care Provider Active Dr. Coco Shah Jr., MD Attending Provider, Ref erring Provider Active Team Status: Inactive Member Role Status Dates Dr. Zach Turner MD Primary Care Provider Active Tanesha Alva DENTISTRY TEACHER, DENTISTRY TEACHER-C Other Provider Active Dr. Chevy Bautista DPM Attending Provider, Referri ng Provider Active Team Status: Active Member Role Status Dates Dr. Zach Turner MD Primary Care Provider Active Dr. Patrick Rojas DPM Attending Provider Active Team Status: Active Member Role Status Dates Dr. Zach Turner MD Primary Care Provider Active Dr. Mervin White MD Emergency Provider Active Dr. Eddie Hendricks DO Admit Provider, Attending Pro vider Active Team Status: Inactive Member Role Status Dates Dr. Zach Turner MD Primary Care Provider Active Dr. Mervin White MD Emergency Provider Active Dr. Eddie Hendricks DO Admit Provider, Attending Pro vider Active Dr. Chevy Bautista DPM Other Provider Active Team Status: Inactive Member Role Status Dates Dr. Zach Turner MD Primary Care Provider Active Dr. Patrick Rojas DPM Attending Provider Active Team Status: Active Member Role Status Dates Dr. Zach Turner MD Primary Care Provider Active Dr. Mervin White MD Emergency Provider Active Dr. Eddie Hendricks DO Admit Provider, Attending Provider, Other Provider Active Dr. Chevy Bautista DPM Other Provider Active Team Status: Inactive Member Role Status Dates Dr. Zach Turner MD Primary Care Provider Active Dr. Memo Hernández MD Attending Provider, Referr ing Provider Active Dr. Coco Shah Jr., MD Other Provider Active Team Status: Inactive Member Role Status Dates Dr. Zach Turner MD Primary Care Provider Active Dr. Patrick Rojas DPM Attending Provider, Referring Pr ovider Active Team Status: Inactive Member Role Status Dates Dr. Zach Turner MD Primary Care Provider, Attending P royoselin Active Team Status: Active Member Role Status Dates Dr. Zach Turner MD Primary Care Provider Active Dr. Patrick Rojas DPM Attending Provider, Referring Pr ovider Active Team Status: Active Member Role Status Dates Dr. Zach Turner MD Primary Care Provider Active Self Referred Attending Provider Active Team Status: Inactive Member Role Status Dates Dr. Zach Turner MD Primary Care Provider Active Self Referred Attending Provider Active Industrial Service Technician Relationship Specialty Start Date End Date Zach Turner [place] [address] PCP - General Family Medicine 04/18/17 Team Status: Inactive Member Role Status Dates Dr. Coco Shah Jr., MD Attending Provider, Ref erring Provider Active Dr. Zach Turner MD Primary Care Provider Active Industrial Service Technician Relationship Specialty Start Date End Date Zach Turner MD [address] [place] [address] PCP - General Family Medicine 04/18/17 Industrial Service Technician Relationship Specialty Start Date End Date Zach Turner MD [address] [facility] [place] [address] PCP - General Family Medicine 04/18/17 Industrial Service Technician Relationship Specialty Start Date End Date Zach Turner [address] [facility] [address] [place] [address] PCP - General Family Medicine 07/11/24 Industrial Service Technician Relationship Specialty Start Date End Date Zach Turner [address] [facility] [address] [place] [address] PCP - General Family Medicine 07/11/24 Industrial Service Technician Relationship Specialty Start Date End Date Zach Turner [address] [facility] [address] [place] [address] PCP - General Family Medicine 07/11/24 Industrial Service Technician Relationship Specialty Start Date End Date Zach Turner [address] [facility] [address] [place] [address] PCP - General Family Medicine 07/11/24 Industrial Service Technician Relationship Specialty Start Date End Date Zach Turner MD [address] [place] [address] PCP - General Family Medicine 04/18/17 Team Status: Active Member Role Status Dates Dr. Zach Turner MD Primary Care Provider Active Team Status: Inactive Member Role Status Dates Dr. Zach Turner MD Primary Care Provider Active Start: October 30, 2024 End: October 30, 2024 Dr. Zach Turner MD Attending Provider Active St art: October 30, 2024 End: October 30, 2024 Dr. Zach Turner MD Referring Provider Active St art: October 30, 2024 End: October 30, 2024 Team Status: Inactive Member Role Status Dates Dr. Zach Turner MD Primary Care Provider Active Start: November 09, 2024 End: November 09, 2024 Dr. Coco Shah Jr., MD Attending Provider Active Start: October End: November 09, 2024 Dr. Coco Shah Jr., MD Referring Provider Active Start: October End: November 09, 2024 Team Status: Inactive Member Role Status Dates Dr. Zach Turner MD Primary Care Provider Active Start: December 25, 2024 End: December 25, 2024 Dr. Coco Shah Jr., MD Attending Provider Active Start: December End: December 25, 2024 Dr. Coco Shah Jr., MD Referring Provider Active Start: December End: December 25, 2024 Team Status: Inactive Member Role Status Dates Dr. Zach Turner MD Primary Care Provider Active Start: January 09, 2025 End: January 09, 2025 Dr. Zach Turner MD Referring Provider Active St art: January 09, 2025 End: January 09, 2025 ANGELA Sosa Attending Provider Active Star t: January 09, 2025 End: January 09, 2025 Team Status: Inactive Member Role Status Dates Dr. Zach Turner MD Primary Care Provider Active Start: February 21, 2025 End: February 21, 2025 Dr. Coco Shah Jr., MD Attending Provider Acti ve Start: February 21, 2025 End: February 21, 2025 Dr. Coco Shah Jr., MD Referring Provider Acti ve Start: February 21, 2025 End: February 21, 2025 Industrial Service Technician Relationship Specialty Start Date End Date Zach Turner MD PCP - General Family Medicine 04/18/17 Team Status: Inactive Member Role Status Dates Dr. Zach Turner MD Primary Care Provider Active Start: February 26, 2025 End: March 13, 2025 Dr. Coco Shah Jr., MD Attending Provider Acti ve Start: February 26, 2025 End: March 13, 2025 Dr. Coco Shah Jr., MD Referring Provider Acti ve Start: February 26, 2025 End: March 13, 2025 Team Status: Inactive Member Role Status Dates Dr. Zach Turner MD Primary Care Provider Active Start: March 08, 2025 End: March 08, 2025 Dr. Zach Turner MD Referring Provider Active St art: March 08, 2025 End: March 08, 2025 Dr. Chevy Gary MD Attending Provider Active Start: March 08, 2025 End: March 08, 2025 Team Status: Inactive Member Role Status Dates Dr. Zach Turner MD Primary Care Provider Active Start: March 27, 2025 End: March 27, 2025 Dr. Patrick Rojas DPM Attending Provider Active Start: March 27, 2025 End: March 27, 2025 Dr. Patrick Rojas DPM Referring Provider Active Start: March 27, 2025 End: March 27, 2025 Team Status: Inactive Member Role Status Dates Dr. Zach Turner MD Primary Care Provider Active Start: April 04, 2025 End: April 04, 2025 Dr. Coco Shah Jr., MD Attending Provider Acti ve Start: April 04, 2025 End: April 04, 2025 Dr. Coco Shah Jr., MD Referring Provider Acti ve Start: April 04, 2025 End: April 04, 2025 Team Status: Active Member Role Status Dates Dr. Zach Turner MD Primary Care Provider Active Start: April 15, 2025 Dr. Edgar Gudino DO Emergency Provider Activ e Start: April 15, 2025 Dr. Coco Pepe MD Admit Provider Active Star t: April 15, 2025 Dr. Coco Pepe MD Attending Provider Active Start: April 15, 2025 Team Status: Inactive Member Role Status Dates Dr. Zach Turner MD Primary Care Provider Active Start: April 15, 2025 End: April 17, 2025 Dr. Edgar Gudino DO Emergency Provider Activ e Start: April 15, 2025 End: April 17, 2025 Dr. Coco Pepe MD Admit Provider Active Star t: April 15, 2025 End: April 17, 2025 Dr. Coco Pepe MD Attending Provider Active Start: April 15, 2025 End: April 17, 2025 Dr. Patrick Rojas DPM Other Provider Active Star t: April 15, 2025 End: April 17, 2025 Dr. Latonia Berry MD Other Provider Active Start: April 15, 2025 End: April 17, 2025 Team Status: Active Member Role Status Dates Dr. Zach Turner MD Primary Care Provider Active Start: April 16, 2025 Dr. Edgar Gudino DO Emergency Provider Activ e Start: April 16, 2025 Dr. Coco Pepe MD Admit Provider Active Star t: April 16, 2025 Dr. Coco Pepe MD Attending Provider Active Start: April 16, 2025 Dr. Coco Pepe MD Other Provider Active Star t: April 16, 2025 Dr. Patrick Rojas DPM Other Provider Active Star t: April 16, 2025 Dr. Latonia Berry MD Other Provider Active Start: April 16, 2025 Team Status: Active Member Role Status Dates Dr. Zach Turner MD Primary Care Provider Active Start: April 17, 2025 Dr. Edgar Gudino DO Emergency Provider Activ e Start: April 17, 2025 Dr. Coco Pepe MD Admit Provider Active Star t: April 17, 2025 Dr. Coco Pepe MD Attending Provider Active Start: April 17, 2025 Dr. Coco Pepe MD Other Provider Active Star t: April 17, 2025 Dr. Patrick Rojas DPM Other Provider Active Star t: April 17, 2025 Dr. Latonia Berry MD Other Provider Active Start: April 17, 2025 Team Status: Active Member Role/Relationship Status Dates Dr. Zach Turner MD Primary Care Provider Active Team Status: Inactive Member Role/Relationship Status Dates Dr. Zach Turner MD Primary Care Provider Active Start: February 21, 2025 End: February 21, 2025 Dr. Coco Shah Jr., MD Attending Provider Acti ve Start: February 21, 2025 End: February 21, 2025 Dr. Coco Shah Jr., MD Referring Provider Acti ve Start: February 21, 2025 End: February 21, 2025 Team Status: Inactive Member Role/Relationship Status Dates Dr. Zach Turner MD Primary Care Provider Active Start: February 26, 2025 End: March 13, 2025 Dr. Coco Shah Jr., MD Attending Provider Acti ve Start: February 26, 2025 End: March 13, 2025 Dr. Coco Shah Jr., MD Referring Provider Acti ve Start: February 26, 2025 End: March 13, 2025 Team Status: Inactive Member Role/Relationship Status Dates Dr. Zach Turner MD Primary Care Provider Active Start: March 08, 2025 End: March 08, 2025 Dr. Zach Turner MD Referring Provider Active St art: March 08, 2025 End: March 08, 2025 Dr. Chevy Gary MD Attending Provider Active Start: March 08, 2025 End: March 08, 2025 Team Status: Inactive Member Role/Relationship Status Dates Dr. Zach Turner MD Primary Care Provider Active Start: March 27, 2025 End: March 27, 2025 Dr. Patrick Rojas DPM Attending Provider Active Start: March 27, 2025 End: March 27, 2025 Dr. Patrick Rojas DPM Referring Provider Active Start: March 27, 2025 End: March 27, 2025 Team Status: Inactive Member Role/Relationship Status Dates Dr. Zach Turner MD Primary Care Provider Active Start: April 04, 2025 End: April 04, 2025 Dr. Coco Shah Jr., MD Attending Provider Acti ve Start: April 04, 2025 End: April 04, 2025 Dr. Coco Shah Jr., MD Referring Provider Acti ve Start: April 04, 2025 End: April 04, 2025 Team Status: Inactive Member Role/Relationship Status Dates Dr. Zach Turner MD Primary Care Provider Active Start: April 15, 2025 End: April 17, 2025 Dr. Edgar Gudino DO Emergency Provider Activ e Start: April 15, 2025 End: April 17, 2025 Dr. Coco Pepe MD Admit Provider Active Star t: April 15, 2025 End: April 17, 2025 Dr. Coco Pepe MD Attending Provider Active Start: April 15, 2025 End: April 17, 2025 Dr. Patrick Rojas DPM Other Provider Active Star t: April 15, 2025 End: April 17, 2025 Dr. Latonia Berry MD Other Provider Active Start: April 15, 2025 End: April 17, 2025 Team Status: Active Member Role/Relationship Status Dates Dr. Zach Turner MD Primary Care Provider Active Start: April 16, 2025 Dr. Edgar Gudino DO Emergency Provider Activ e Start: April 16, 2025 Dr. Coco Pepe MD Admit Provider Active Star t: April 16, 2025 Dr. Coco Pepe MD Attending Provider Active Start: April 16, 2025 Dr. Coco Pepe MD Other Provider Active Star t: April 16, 2025 Dr. Patrick Rojas DPM Other Provider Active Star t: April 16, 2025 Dr. Latonia Berry MD Other Provider Active Start: April 16, 2025 Team Status: Active Member Role/Relationship Status Dates Dr. Zach Turner MD Primary Care Provider Active Start: April 17, 2025 Dr. Edgar Gudino DO Emergency Provider Activ e Start: April 17, 2025 Dr. Coco Pepe MD Admit Provider Active Star t: April 17, 2025 Dr. Coco Pepe MD Attending Provider Active Start: April 17, 2025 Dr. Coco Pepe MD Other Provider Active Star t: April 17, 2025 Dr. Patrick Rojas DPM Other Provider Active Star t: April 17, 2025 Dr. Latonia Berry MD Other Provider Active Start: April 17, 2025 Team Status: Inactive Member Role/Relationship Status Dates Dr. Zach Turner MD Primary Care Provider Active Start: May 14, 2025 End: May 14, 2025 Dr. Latonia Berry MD Attending Provider Active Start: May 14, 2025 End: May 14, 2025 Dr. Latonia Berry MD Referring Provider Active Start: May 14, 2025 End: May 14, 2025 Industrial Service Technician Relationship Specialty Start Date End Date Zach Turner MD PCP - General Family Medicine 04/18/17 Team Status: Inactive Member Role/Relationship Status Dates Dr. Zach Turner MD Primary Care Provider Active Start: May 24, 2025 End: May 24, 2025 Dr. Mmeo Hernández MD Attending Provider Active Start: May 24, 2025 End: May 24, 2025 Dr. Memo Hernández MD Referring Provider Active Start: May 24, 2025 End: May 24, 2025 Team Status: Active Member Role/Relationship Status Dates Dr. Zach Turner MD Primary Care Provider Active Start: May 28, 2025 Dr. Coco Shah Jr., MD Attending Provider Acti ve Start: May 28, 2025 Dr. Coco Shah Jr., MD Referring Provider Acti ve Start: May 28, 2025 Industrial Service Technician Relationship Specialty Start Date End Date Zach Turner MD PCP - General Family Medicine 04/18/17 Team Status: Inactive Member Role/Relationship Status Dates Dr. Zach Turner MD Primary Care Provider Active Start: June 07, 2025 End: June 07, 2025 Dr. Coco Shah Jr., MD Attending Provider Acti ve Start: June 07, 2025 End: June 07, 2025 Dr. Coco Shah Jr., MD Referring Provider Acti ve Start: June 07, 2025 End: June 07, 2025 Industrial Service Technician Relationship Specialty Start Date End Date Zach Turner [address] [id number] PCP - General Family Medicine 07/11/24 Team Status: Inactive Member Role/Relationship Status Dates Dr. Zach Turner MD Primary Care Provider Active Start: May 28, 2025 End: June 13, 2025 Dr. Coco Shah Jr., MD Attending Provider Acti ve Start: May 28, 2025 End: June 13, 2025 Dr. Coco Shah Jr., MD Referring Provider Acti ve Start: May 28, 2025 End: June 13, 2025 Team Status: Active Member Role/Relationship Status Dates Dr. Zach Turner MD Primary Care Provider Active Start: June 11, 2025 Dr. Coco Shah Jr., MD Attending Provider Acti ve Start: June 11, 2025 Dr. Coco Shah Jr., MD Referring Provider Acti ve Start: June 11, 2025 Team Status: Inactive Member Role/Relationship Status Dates Dr. Zach Turner MD Primary Care Provider Active Start: June 21, 2025 End: June 21, 2025 Dr. Edgar Gudino DO Emergency Provider Activ e Start: June 21, 2025 End: June 21, 2025 FOR RECORDS PERTAINING TO PATIENTS WHO ARE [...] BE BASED ON THE PRIMARY CLINICAL RECORDS. [employer] provides no warranty or guarantee of the accuracy or completeness of information in this document.
--- NOTE | 2025-06-28 21:40 | CT_ITS ---
PROCEDURE: CT ABDOMEN/PELVIS W IV CONT ONLY 06/28/2025 REASON FOR EXAM: ELEVATED LIPASE ON OUTPATIENT LABS TECHNIQUE: CT ABDOMEN/PELVIS W IV CONT ONLY. Coronal and Sagittal reconstruction series were provided. CONTRAST: Isovue 370 VOLUME: 95 mL One or more dose reduction techniques were used (e.g., Automated exposure control, adjustment of the mA and/or kV according to patient size, use of iterative reconstruction technique. RADIATION DOSE SUMMARY: DLP: 451.32 mGycm COMPARISON: Abdominal CT 06/21/2025. FINDINGS: Lung bases: Clear. Mild four-chamber cardiomegaly. Liver: Unremarkable. Gallbladder: Unremarkable. Mildly prominent CBD. Spleen: Normal size and morphology. Pancreas: Sequelae of chronic pancreatitis with multiple scattered parenchymal calcifications. Unchanged prominent 12 mm stone in the region of the pancreatic head which appears to be within the confluence of the main pancreatic duct and CBD, likely obstructive with upstream prominent dilatation of the pancreatic duct, with the degree of ductal dilatation increased from prior exam. Additionally there is a small calculus in the region of the accessory pancreatic duct which also may be obstructive. There is mild subtle peripancreatic fat infiltration/edema, suggesting mild acute on chronic pancreatitis. Adrenals: Unremarkable. Kidneys: Normal in size with symmetric enhancement. No urolithiasis or hydronephrosis. Small simple appearing renal cyst in the lower pole of the left kidney. Bladder: Unremarkable. Reproductive Organs: Prostate brachytherapy seeds. Bowel: No evidence of obstruction or active inflammatory process. Normal appendix. Lymph nodes: No suspicious lymph node enlargement. Vasculature: Normal caliber abdominal aorta. Mild atherosclerotic calcifications. Peritoneum / Retroperitoneum: No ascites or free air. Bones: No acute or aggressive osseous abnormality. Mild degenerative changes of the visualized spine. Grade 1 degenerative anterolisthesis of L4 on L5. CT/Abdomen/Pelvis W IV Cont ONLY IMPRESSION: Sequelae of chronic pancreatitis with multiple parenchymal calcifications. Red emonstrated prominent 12 mm stone in the region of the pancreatic head which appears to be obstructing at the confluence of the ma in pancreatic duct and CBD, with interval increased pancreatic ductal dilatation. Probable additional small stone in the accessory pancreatic duct may also be obstructive. Mild peripancreatic fat infiltration/edema is suggestive of super imposed acute on chronic pancreatitis. Reading Location: [id number]
--- NOTE | 2025-06-28 22:59 | PCM.HP.STD ---
[facility] Date of Admission: 06/28/25 Date of Service: 06/28/25 Chief Complaint: Abdominal Pain with Elevated Lipase on Outpatient Testing. HPI Narrative YESSI GRACE, is a 80 M with a past medical history of essential hypertension; on amlodipine, carvedilol twice daily and spironolactone-hydrochlorothiazide, hyperlipidemia; on pravastatin, former tobacco abuse, DM-2; on empagliflozin and glipizide, chronic atrial fibrillation; on apixaban twice daily, history of ectopic atrial tachycardia, history of paroxysmal ventricular tachycardia, history of SVT, psoriatic arthritis; on methotrexate and Inflectra, history of asthma, history of secondary pulmonary arterial hypertension, RAJESH; on CPAP, glaucoma, OAB; on oxybutynin, BPH; on finasteride and tamsulosin, GERD; currently not on treatment, OA; with history of acute/chronic osteomyelitis of the ankle and foot and recent ER evaluation here on June 21, 2025 with BRBPR complicated by constipation for 4 days and abdominal cramping with a hemoglobin of 15.7 g/dL with gastroenterology recommending outpatient follow-up in his office and with patient instructed to come back to the ER if his bleeding returned who presents to [facility] ER complaining of abdominal pain with elevated lipase of 2,162 units/L on outpatient testing with patient instructed by his PCP to come to the ER for further evaluation and treatment. Mr. Grace reports his symptoms began approximately 1 day prior to admission with ongoing generalized weakness since his previous ER visit with his PCP ordering laboratory testing. With the laboratory testing returned positive for evidence of nudgu-ei-lcllfig pancreatitis with the patient complaining of lower abdominal pain he was instructed to come to the ER. He denies history of pancreatitis or EtOH abuse. He also denies associated fever, chills, runny nose, sore throat, ear pain, chest pain, palpitations, heart racing, lower extremity edema, shortness of breath, wheezing, nausea, vomiting, diarrhea, dysuria, hematuria, headache or rash. In the ER he was diagnosed with CT evidence of Fpbgt-[id number]-[id number] Pancreatitis complicated by Abdominal Pain with CT scan of the abdomen pelvis with IV contrast revealing sequelae of chronic pancreatitis with multiple scattered parenchymal calcifications and unchanged prominent ~12 mm stone in the region of the pancreatic head which appears to be within the confluence of the main pancreatic duct and common bile duct which is likely obstructive with upstream prominent dilatation of the pancreatic duct with degree of ductal dilatation increased from prior exam with an additional small calculus in the region of the accessory pancreatic duct which also may be obstructive in addition to mild subtle peripancreatic fat infiltration/edema suggesting mild twdkv-gi-tsplgbu pancreatitis with the ER physician speaking to the batter depositor on-call who is planning for ERCP in a.m., with help appreciated in advance. He was then admitted to the general medical floor telemetric monitoring for ongoing care for a stay that is expected to extend beyond 2 midnights. FOR[facility]LY [facility] Medical History Kidney disease GERD (gastroesophageal reflux disease) Former smoker Hypertension Hypertension, well controlled Amputation toe Cataract Glaucoma CPAP (continuous positive airway pressure) dependence Sleep apnea Asthma Atrial fibrillation Nonhealing nonsurgical wound with fat layer exposed Essential hypertension RAJESH (obstructive sleep apnea) Ectopic atrial tachycardia Paroxysmal ventricular tachycardia Premature atrial contractions Cellulitis Psoriasis Arthritis Shortness of breath Hyperlipidemia Hypertension Premature ventricular contraction Supraventricular tachycardia Long-term use of high-risk medication Body mass index 31.0-31.9, adult Diabetes mellitus Secondary pulmonary arterial hypertension Methicillin susceptible Staphylococcus aureus infection Acute osteomyelitis involving ankle and foot Chronic osteomyelitis involving ankle and foot Home Medications ?Medication ?Instructions ?Recorded ?Last Taken ?Type finasteride 5 mg tablet 5 mg PO DAILY prostate 02/03/16 06/21/25 History tamsulosin 0.4 mg capsule 0.4 mg PO QHS prostate 02/03/16 06/20/25 History fluticasone propionate 50 2 spray NASAL DAILY PRN Nasal 06/30/18 04/15/25 History mcg/actuation nasal Congestion spray,suspension methotrexate sodium 2.5 mg tablet 7.5 mg PO Q7D arthritis 06/30/18 06/19/25 History pyridoxine (vitamin B6) 50 mg 100 mg PO QHS supplement 06/30/18 06/20/25 History tablet oxybutynin chloride 5 mg 5 mg PO QHS bladder 10/20/18 06/20/25 History tablet,extended release 24 hr folic acid 1 mg tablet 4 mg PO DAILY supplement 06/01/19 04/15/25 History glucosamine HCl 1,500 mg tablet 1,500 mg PO BID supplemt 02/20/20 06/21/25 History infliximab-dyyb 100 mg intravenous 100 mg IV UD psoriatic arthritis 05/30/20 06/07/25 History solution (Inflectra) cyanocobalamin (vitamin B-12) 100 500 mcg PO DAILY supplement 12/01/20 06/21/25 History mcg tablet cholecalciferol (vitamin D3) 25 25 mcg PO DAILY supplement 06/20/24 06/21/25 History mcg (1,000 unit) tablet ginkgo biloba leaf extract 60 mg 60 mg PO DAILY 06/20/24 06/21/25 History capsule glipizide 10 mg tablet 10 mg PO DAILY dm 06/20/24 04/15/25 History Held on 06/21/25. Instructions: MD Ordered vitamins A,C,D-lemi-ooalbv 4,296 1 cap PO QDAY 03/08/25 06/21/25 History mcg-226 mg-90 mg capsule (PreserVision AREDS) apixaban 5 mg tablet (Eliquis) 2.5 mg PO BID 04/15/25 06/21/25 History Held on 06/28/25. Instructions: GI Bleed multivitamin (Daily Multi-Vitamin 1 tab PO DAILY 04/15/25 06/21/25 History tablet) acetaminophen 325 mg tablet 650 mg (2 x 325 mg) PO Q6H PRN PRN 04/17/25 Unknown Rx Pain 1-10 Or Fever >100.7 #0 tabs pravastatin 40 mg tablet 40 mg PO QHS cholesterol #90 tabs 05/15/25 06/20/25 Rx amlodipine 2.5 mg tablet 2.5 mg PO DAILY 06/21/25 06/21/25 History bimatoprost 0.01 % eye drops 1 drp ophthalmic (eye) DAILY 06/21/25 06/21/25 History (Lumigan) carvedilol 25 mg tablet 25 mg PO BID 06/21/25 06/21/25 History empagliflozin 10 mg tablet 10 mg PO DAILY 06/21/25 06/21/25 History (Jardiance) fluocinolone 0.01 % topical body 1 applic topical BID 06/21/25 06/21/25 History oil Lactobacillus acidophilus 1 cap PO BID 06/28/25 Unknown History (Acidophilus capsule) potassium chloride 20 mEq 20 meq PO DAILY 06/28/25 Unknown History tablet,extended release(part/cryst) spironolactone 25 1 tab PO DAILY 06/28/25 Unknown History mg-hydrochlorothiazide 25 mg tablet Allergy/AdvReac Type Severity Reaction Status Date / Time cephalexin (From Keflex) Allergy Severe rash Verified 06/28/25 19:02 sulfamethoxazole (From Allergy Severe Rash Verified 06/28/25 19:02 Bactrim) trimethoprim (From Bactrim) Allergy Severe Rash Verified 06/28/25 19:02 cefdinir Allergy Mild Abd Verified 06/28/25 19:02 cramps/diarrhea Penicillins Allergy Rash Verified 06/28/25 19:02 doxycycline AdvReac Severe GI upset Verified 06/28/25 19:02 levofloxacin (From Levaquin) AdvReac Other Verified 06/28/25 19:02 Family History Father Cancer Prostate Mother Depression Uncle Myocardial infarction Son CVA (cerebral vascular accident) Surgical History History of bilateral cataract extraction History of foot surgery (~02/2023) excision of skin cancer History of hammer toe correction (09/26/20) History of partial amputation of toe History of hernia repair History of tonsillectomy and adenoidectomy Social History Smoking Status: Former smoker pack-years: 30 alcohol intake: current alcohol intake frequency: holidays/special occasions only substance use type: does not use caffeine: Yes Type: coffee Number of servings: 2 what type of physical activity do you participate in: running and weight training frequency: 1-2 times per week ROS ROS Narrative Review of Systems: Constitutional: Patient denies fever or chills. Eyes: Patient denies changes in vision or discharge from eyes. ENT: Patient denies runny nose, sore throat or ear pain. Resp: Patient denies shortness of breath or cough. CV: Patient denies chest pain, palpitations or heart racing. GI: Patient admits to mild lower abdominal pain with constipation as per HPI. He denies nausea, vomiting or diarrhea. : Patient denies dysuria or hematuria. MSK: Patient admits to generalized weakness but he denies arthralgias or myalgias. Skin: Patient denies rash, abscess, wounds or jaundice. Psych: Patient denies symptoms uncontrolled depression or anxiety. Neuro: Patient denies headache, paresthesias or focal neurologic deficits. Allergy: Patient denies lip swelling, tongue swelling or urticaria. Hematology: Patient admits to recent BRBPR on June 21, 2025 with ER visit that day as per HPI. Endocrinology: Patient denies polyuria, polydipsia, polyphagia or heat/cold intolerance. 14 point ROS otherwise negative except for positives noted above in HPI. Vital Signs Vital Signs Vital Signs: 06/28/25 19:00 06/28/25 21:06 06/28/25 21:08 Temperature 97.2 F L Temperature Source Temporal Pulse Rate 98 84 Respiratory Rate 16 20 H Respiratory Effort Normal Non-Labored Respiratory Pattern Normal Blood Pressure 117/72 151/92 H Blood Pressure Mean 87 111 Pulse Ox 99 100 Oxygen Delivery Method Room Air Room Air Weight Weight: 178 lb Body Mass Index (BMI) 24.1 Physical Exam Const alert, oriented x3, no apparent distress, average body habitus and healthy appearing General Appearance: cooperative HEENT normocephalic, head/scalp atraumatic, hearing grossly normal bilaterally and moist oral mucous membranes Eyes PERRL, EOMs intact bilaterally and conjunctivae normal Neck no lymphadenopathy, supple and no JVD Resp normal respiratory effort, no retractions, no use of accessory muscles and clear to auscultation bilaterally Cardio regular rate and regular rhythm GI soft to palpation and non-distended GI Narrative: Patient has mild tenderness to palpation in the lower abdomen. Extremity normal to inspection, full ROM and no clubbing, cyanosis or edema Skin Skin Narrative: Patient has evidence of rash, abscess, wounds or jaundice. Neuro oriented x3, CN's II-XII intact bilaterally, moves all extremities and no focal motor deficits Sensorium / Orientation: awake, alert, oriented to person, oriented to place and oriented to time Speech: speech normal Psych affect normal Results Medical Records Data Attestation: I reviewed the patient's medical records Lab / Micro Data Attestation: I reviewed the patient's lab results. 06/28/25 23:42 06/28/25 23:43 Imaging Radiology Impression Abdomen/Pelvis CT 06/28/25 21:40 IMPRESSION: Sequelae of chronic pancreatitis with multiple parenchymal calcifications. Redemonstrated prominent 12 mm stone in the region of the pancreatic head which appears to be obstructing at the confluence of the main pancreatic duct and CBD, with interval increased pancreatic ductal dilatation. Probable additional small stone in the accessory pancreatic duct may also be obstructive. Mild peripancreatic fat infiltration/edema is suggestive of superimposed acute on chronic pancreatitis. Reading Location: [id number] Assessment & Plan Assessment/Plan (1) Acute on chronic pancreatitis: (2) Abdominal pain: QUALIFIERS: Abdominal location: lower abdomen, unspecified Qualified Code(s): R10.30 - Lower abdominal pain, unspecified (3) 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 (4) History of lower GI bleeding: (5) Generalized weakness: (6) Atrial fibrillation: QUALIFIERS: Atrial fibrillation type: unspecified Qualified Code(s): I48.91 - Unspecified atrial fibrillation (7) Chronic anticoagulation: (8) Diabetes mellitus: QUALIFIERS: Diabetes mellitus complication detail: with foot ulcer Diabetes mellitus complication status: with skin complications Diabetes mellitus intermediate manager insulin use: without penitentiary use Diabetes mellitus type: type 2 Qualified Code(s): E11.621 - Type 2 diabetes mellitus with foot ulcer; L97.509 - Non-pressure chronic ulcer of other part of unspecified foot with unspecified severity PLAN: Plan 1. CT evidence of Uaigp-ph-Vvgmvar Pancreatitis complicated by Abdominal Pain with CT scan of the abdomen pelvis with IV contrast revealing sequelae of chronic pancreatitis with multiple scattered parenchymal calcifications and unchanged prominent ~12 mm stone in the region of the pancreatic head which appears to be within the confluence of the main pancreatic duct and common bile duct which is likely obstructive with upstream prominent dilatation of the pancreatic duct with degree of ductal dilatation increased from prior exam with an additional small calculus in the region of the accessory pancreatic duct which also may be obstructive in addition to mild subtle peripancreatic fat infiltration/edema suggesting mild abvwm-kk-bfrzzwd pancreatitis with the ER physician speaking to the batter depositor on-call who is planning for ERCP in a.m - Admit to general medical floor with telemetric monitoring. Keep strict NPO with ERCP pending in AM. Give pantoprazole 40 mg IV daily. Start IV aztreonam and IV metronidazole to prophylax against infection given patient's extensive list of allergies. Give ondansetron IV prn for nausea and vomiting. Give ketorolac IV prn for ztoe-kx-dntarnzt (level 1-5/10) pain or fever. Give morphine IV for severe (level 6-10/10) pain. Gastroenterology help is appreciated in advance. 2. Recent ER evaluation here on June 21, 2025 with BRBPR complicated by constipation for 4 days and abdominal cramping with a hemoglobin of 15.7 g/dL with gastroenterology recommending outpatient follow-up in his office and with patient instructed to come back to the ER if his bleeding returned - Noted with no further complaints of bleeding. Hold apixaban until further notice. 3. Generalized Weakness due to #1 & #2 - PT/OT and Case Management to consult and treat on-rounds in the AM for further recommendations with help appreciated in advance. 4. Chronic atrial fibrillation; on apixaban twice daily adding to the medical complexity of #1 - #3 - Stable. Hold apixaban until patient cleared to restart by gastroenterology. 5. DM-2; on empagliflozin and glipizide - Hold oral hypoglycemic agents. Keep NPO with FSBS q. 6 hours plus cover with lowest intensity SSI. 6. Essential hypertension; on amlodipine, carvedilol twice daily and spironolactone-hydrochlorothiazide - Hold scheduled oral antihypertensives. Give hydralazine IV prn for systolic blood pressure > 160 mmHg. 7. Hyperlipidemia; on pravastatin - Hold statin until patient restarted on oral intake. 8. History of ectopic atrial tachycardia - Noted. 9. History of paroxysmal ventricular tachycardia - Noted. 10. History of SVT - Noted. 11. Psoriatic arthritis; on methotrexate and Inflectra - Noted. Hold these agents until further notice. 12. Former tobacco abuse - Noted. 13. History of asthma - Stable without evidence of acute flare at this time. Give nebulizers prn. 14. History of secondary pulmonary arterial hypertension - Noted. 15. RAJESH; on CPAP - Stable. Avoid restarting CPAP at this time to prevent insufflation of bowel. 16. Glaucoma - Maintain bimatoprost eye drops. 17. OAB; on oxybutynin - Restart when patient resumes oral intake. 18. BPH; on finasteride and tamsulosin - Hold these agents for now. 19. GERD; currently not on treatment - Patient on IV PPI for #1. 20. OA; with history of acute/chronic osteomyelitis of the ankle and foot - Noted. 21. DVT prophylaxis - SCD's only with impending ERCP. Total time: Approximately (but not less than) 75 minutes. Charges/Coding Visit Charges Inpatient E&M: 75445 Init Hosp L3
[2025-06-28 23:00] VITALS: BP 130/83; PULSE 76; RESP 20; O2SAT 100
--- OUTSIDE RECORDS SUMMARY | 2025-06-28 23:22 | XMS RPT_ITS | CCD ---
Author Organization [facility] Care Team Providers Care [employer]icate [employer] Presser Name Role Phone Russell Tomasa COWART S Unavailable MD Teri, Larry S Unavailable Zach Turner Primary Care Provider [phone] Zach Turner Primary Care Provider Zach Turner MD Primary Care Provider Dr. Zach Turner Primary Care Provider Dr. Zach Turner Referring Provider [phone] Dr. Betito Torres Attending Provider [facility] MEDICAL APPLIANCE MAKER, MEDICAL APPLIANCE MAKER-C Merrill Carroll Attending Provider Dr. Zach Turner [...] BENITEZ, Dr. Garcia Attending Provider [phone] Johnny BENITEZ, Dr. Garcia Referring Provider [phone] Pablo BENITEZ, Dr. Coco Carter Attending Provider Dr. Coco Shah MD Referring Provider Odalis Rust Attending Provider Johnny BENITEZ, Zach [...] Pablo BENITEZ, Dr. Coco Carter Referring Provider [phone] Johnny BENITEZ, Dr. Garcia Referring Provider Kristi BENITEZ, Dr. Phipps Attending Provider Kristi BENITEZ, Dr. Phipps Referring Provider Edgar BENITEZ, Dr. Memo Gillette Attending Provider Edgar BENITEZ, Dr. Memo Gillette Referring Provider [...] Jr., Coco Carter Attending Unavaila ble Turner, [facility] Primary Care Unavailable Allergies Allergy Classification Reported Allergen(s) Allergy Type Date of Onset Reaction(s) Facility Cephalosporins (antibiotic) (1 source) Cephalexin Drug Allergy 06-01-20 19 [facility] Dihydrofolate Reductase Inhibitors (antibiotic) (1 source) Trimethoprim Drug Allergy 06-01-20 19 [facility] Penicillins (antibiotic) (1 source) Penicillins Drug Allergy [facility] Sulfonamides (antibiotic) (1 source) Sulfamethoxazole Drug Allergy 06-01-20 19 [facility] (2 sources) penicillin Drug Allergy 03-10-20 11 [facility] Work Phone: (19 sources) Penicillins Propensity to adverse reactions to drug 02-04-20 22 Unknown [facility] Work Phone: (20 sources) Cephalexin Drug Allergy 06-01-20 19 [facility] (20 sources) Sulfamethoxazole Drug Allergy 06-01-20 19 [facility] (20 sources) Trimethoprim Drug Allergy 06-01-20 19 [facility] (20 sources) levoFLOXacin Drug Allergy 07-20-20 21 Other [facility] Comment on above: tendon separation (20 sources) Penicillins Propensity to adverse reactions 02-23-20 22 Unknown, Rash [facility] (1 source) levoFLOXacin Drug Allergy [facility] (1 source) Penicillin Drug Allergy [facility] (1 source) Sulfamethoxazole / Trimethoprim Drug Allergy [facility] (12 sources) Penicillins Propensity to adverse reactions to drug 11-27-19 09 Rash, Unknown [facility] (12 sources) Sulfamethoxazole Propensity to adverse reactions to drug 06-01-20 19 Rash [facility] (14 sources) Doxycycline Drug Allergy 06-29-20 24 GI upset [facility] (5 sources) Sulfamethoxazole / Trimethoprim Drug Allergy 07-11-20 [facility] (1 source) cefdinir Drug Allergy 06-21-20 Abd cramps/diarrhe a [facility] (1 source) cefdinir Drug Allergy 06-21-20 [facility] (1 source) Cephalexin Drug Allergy 06-21-20 [facility] (1 source) Doxycycline Drug Allergy 06-21-20 [facility] (1 source) levoFLOXacin Drug Allergy 06-21-20 [facility] (1 source) Penicillins Drug allergy (disorder) 06-21-20 [facility] (1 source) Sulfamethoxazole Drug Allergy 06-21-20 [facility] (1 source) Trimethoprim Drug Allergy 06-21-20 [facility] Repository Medications Current Medications Medication [...] One drop in each eye daily BIMATOPROST [id number] Merrill Coppola MIYA Start: 07-31-2015 End: 10-08-2019 [...] 21, 2025 12:00am Start: 06-12-2025 fluocinolone ( [place]a-Smoothe) 0.01 % external oil Apply to itchy [...] spray 10/03/2017 05/07/2024 Discontinued Start: 10-03-2017 FLUTICASONE NM OPIONATE 50 MCG/ACT SUSP (0.05mg/inh) 1 spray each nostril once a day FLUTICASONE PROPIONATE [id number] Merrill Coppola NP Start: 02-03-2016 End: 06-30-2018 Fluticasone Propionate 1 SPR AY spray,suspension Active 2 NMA NASAL DAILY as needed for Nasal Congestion June 30, 2018 12:00am Start: 02-03-2016 End: 06-30-2018 Fluticasone Propionate Activ e 2 SPRAY NASAL DAILY June 29, 2018 11:00pm Ginkgo Biloba Kaleva Extract (9 sources) Start: 06-20-2024 take 1 capsule by mouth once daily Ginkgo Biloba Kaleva Extract 60 mg capsule Active 60 mg PO DAILY June 20, 2024 12:00am give with meal/snack glucosamine hydrochloride 1500 mg oral tablet (20 sources) Start: 02-20-2020 take 1 tablet by mouth twice daily Glucosamine Hcl 1,500 mg tablet Active 1500 mg PO TWICE A DAY February 20, 2020 12:00am supplemt administer with a meal Tikfsddzrjk-Pyfgygfmy-Pwv C-Mn (GLUCOSAMINE 1500 COMPLEX PO) (6 sources) [...] unspecified type , Asteatosis cutis , Other 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 (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 Premedicated with Benadryl 12.5 mg IV 1 Each 08/19/2021 05/19/2022 Discontinued Start: 05-30-2020 Infliximab-Dyy b (Inflectra) 100 mg recon soln Active 100 mg IV DIRECTED 0 May 30, 2020 8:36am psoriatic arthritis 8 MG/KG, [id number] Start: 05-30-2020 Infliximab-Dyy b (Inflectra) 100 mg recon soln Active 100 mg IV DIRECTED May 30, 2020 8:36am 8 MG/KG, i7ddvjj Start: 09-22-2018 End: 05-30-2020 take 1 mg intravenously every two months Infliximab-Dyyb (Inflectra) 100 mg recon soln Discontinued mg IV every 2 months 0 September 22, 2018 1:00am May 30, 2020 8:38am 6 MG/KG Start: 05-22-2018 End: 05-14-2020 inFLIXimab-dyyb (Inflectra) 100 MG Recon Soln Indications: prison 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 , Psoriatic arthritis , Other 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 (current) drug therapy , Long-term current use of high risk medication other than anticoagulant , Encounter for long-term (current) use of non-steroidal anti-inflammatories , 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, 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, current use , Osteoarthritis of both knees, [...] other malignant neoplasm of skin , Other 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 (current) drug therapy , On statin therapy , Nocturia , 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, halfway, current use , Long-term current use of [...] TABS two times a week METHOTREXATE SODIUM [id number] Maddison Elvia Quiles Start: 11-29-2016 METHOTREXATE 2 .5 MG TABS three times a week METHOTREXATE SODIUM [id number] Winnie Aguirre PA-C Multiple Vitamin (MULTIVITAM IN [...] One tablet by mouth daily TAMSULOSIN HCL [id number] Miguelangel Walton MD traMADol hydrochloride 50 mg [...] Actinic keratosis , Other proteinuria , Other halfway (current) drug therapy , On statin therapy , 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, halfway, current use , Nocturia , Long-term current use of high risk medication other than anticoagulant , prison use of drug , Infliximab (Remicade) long-term use , History of osteomyelitis , History of malignant neoplasm of skin , Difficulty in urination , Current use of halfway anticoagulation , Abnormal renal function test , [...] 10-08-2019 triamcinolone 0.1 % Ointment ointment Vit C,X-Fy-Hkcgs-Lutein-Zeax an (20 sources) Start: 02-20-2020 take 1 capsule by mouth once daily Vit C,I-Dt-Oobzi-Lutein-Zeaxan Active 1 CAP PO DAILY February 20, 2020 10:34am Start: 02-20-2020 take 1 capsule by mo [place] once daily Vit C,F-Ol-Cdwnv-Lutein-Zeaxan Active 1 CAP PO DAILY February 20, 2020 11:34am Start: 02-03-2016 End: 02-20-2020 Vit C,X-Qe-Tmunk-Lutein-Zeax an Discontinued 1 EACH PO DAILY February 03, 2016 11:49am February 20, 2020 11:35am Start: 02-03-2016 End: 02-20-2020 Vit C,U-Ls-Phudd-Lutein-Zeax an Discontinued 1 EACH PO DAILY February 02, 2016 11:00pm February 20, 2020 10:35am Start: 02-03-2016 End: 02-20-2020 Vit C,M-Rh-Goeqx-Lutein-Zeax an Discontinued 1 EACH PO DAILY February [...] TABS One tablet by mouth daily CYANOCOBALAMIN [id number] Mariah aVldes vitamin b6 50 mg oral tablet (20 [...] One tablet by mouth daily PYRIDOXINE HCL [id number] Mariah Valdes Vitamins A,C,E-Gfqw-Icvfyx (Preservision Areds) 4,296 mcg-226 mg-90 mg capsule [...] by mouth four times daily CLINDAMYCIN HCL [id number] Mariah Valdes clobetasol propionate 0.5 mg/ml topical [...] One tablet by mouth daily ESCITALOPRAM OXALATE [id number] Miguelangel Walton MD ezetimibe 10 mg oral [...] TABS One tablet by mouth daily EZETIMIBE [id number] Miguelangel Walton MD fexofenadine hydrochloride 180 mg [...] by mouth daily as needed FEXOFENADINE HCL [id number] Mariah Valdes Finerenone (Kerendia) 10 MG tablet [...] One tablet by mouth daily FOSINOPRIL SODIUM [id number] Mariah Valdes Start: 03-10-2011 End: 07-31-2015 take 1 tablet by mouth once daily FOSINOPRIL SODIUM 40 MG TABS One tablet by mouth daily FOSINOPRIL SODIUM 55068761758 Mariah Valdes furosemide 20 mg oral tablet [...] by mouth daily times 10 days LEVOFLOXACIN [id number] Maddison Quiles Start: 01-16-2016 End: 05-31-2016 take 1 tablet by mouth once daily LEVAQUIN 500 MG TABS One tablet by mouth daily LEVOFLOXACIN [id number] Miguelangel Walton MD Start: 08-25-2015 End: 09-15-2015 take 1 tablet by mouth once LEVAQUIN 500 MG TABS one p o q 24 LEVOFLOXACIN [id number] Alyx Blue MD Start: 08-11-2015 End: 08-25-2015 take 1 tablet by mouth once daily LEVAQUIN 750 MG TABS One tablet by mouth daily LEVOFLOXACIN 11571018891 Mariah Valdes lisinopril 40 mg oral tablet [...] TABS One tablet by mouth daily LOVASTATIN [id number] Mariah Valdes Start: 03-10-2011 End: 01-17-2012 take 1 tablet by mouth once daily LOVASTATIN 10 MG TABS One tablet by mouth daily M-F (STOP) LOVASTATIN [id number] Saima Gonzalez Start: 03-10-2011 End: 01-17-2012 take 1 tablet by mouth once daily LOVASTATIN 40 MG TABS One tablet by mouth daily LOVASTATIN [id number] Mariah Valdes magnesium citrate 58.2 mg/ml oral [...] tablet by mouth twice daily METFORMIN HCL [id number] Miguelangel Walton MD Start: 11-24-2012 take 1 tablet by maicol th twice daily METFORMIN HCL ER 750 MG [id number] One tablet by mouth twice daily METFORMIN HCL [id number] Miguelangel Walton MD Start: 03-10-2011 take 1 tablet by maicol th twice daily METFORMIN HCL 500 MG TABS One tablet by mouth twice daily METFORMIN HCL 60793951477 Saima Gonzalez take 1 tablet by maicol [...] MG tablet XL TOPROL XL 100 MG [id number] 10/21/2011 Active Start: 03-10-2011 End: 06-21-2025 take [...] tablet by mouth three times daily METRONIDAZOLE [id number] Mariah E Carmenlar MULTIPLE VITAMIN (2 sources) Start: 08-12-2015 take 1 tablet by mouth once daily MULTIVITAMINS CAPS One tablet by mouth daily MULTIPLE VITAMIN [id number] Mariah E Tullar Multiple Vitamin (MULTIVITAMIN) Cap [...] One tablet by mouth daily MULTIPLE VITAMINS-MINERALS [id number] Merrill H Roof MEDICAL APPLIANCE MAKER Multiple Vitamins-Minerals (KP VISION FORMULA) Tab (6 [...] by mouth daily POTASSIUM CHLORIDE HENRY CR [id number] Miguelangel Walton MD Start: 03-10-2011 take 1 tablet by maicol th once daily POTASSIUM CHLORIDE 20 MEQ PACK One tablet by mouth daily POTASSIUM CHLORIDE 79526236073 Saima Gonzalez pravastatin sodium 40 mg oral [...] other malignant neoplasm of skin , Other 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 (current) drug therapy , On statin therapy , Nocturia , 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, halfway, current use , Long-term current use of [...] each eye twice a day TIMOLOL MALEATE [id number] Merrill Coppola NP timolol hemihydr ate (BETIMOL) 0.5 % Solution 1 drop 2 times daily.. affected eye(s) Active Vit C,L-Pw-Rpdcb-Lutein-Zeax an 1 EACH capsule (9 sources) Start: 02-03-2016 End: 02-20-2020 take 1 capsule by mouth once daily Vit C,E-Nn-Yydqd-Lutein-Zeaxan 1 EACH capsule Discontinued 1 NMA PO [...] aftercare (12 sources) Patient encounter status; Translations: [prison (current) use of non-steroidal anti-inflammatories (NSAID)] Onset: 7 Episodic Other aftercare (20 sources) H/O: high risk medication; Translations: [Other halfway (current) drug therapy] 10-29-2017 Episodic Other aftercare (3 sources) Long-term 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; Translations: [Other halfway (current) drug therapy] Episodic Other circulatory disease [...] (2 sources) Long-term drug therapy; Translations: [Other 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 (current) drug therapy] Onset: 1 03-10-2011 Unclassified (7 sources) Drug indicated; Translations: [Other 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 (current) drug therapy] 09-25-2018 Unclassified (13 sources) Patient encounter status; Translations: [Encounter for long-term (current) use of non-steroidal anti-inflammatories] Onset: 7 08-29-2017 Unclassified (2 sources) Long-term 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; Translations: [prison 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] Unclassified (2 sources) 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 (current) use of antimetabolite agent; Translations: [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 (current) use of antimetabolite agent] Onset: 7 Unclassified (2 sources) 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 (current) use of immunosuppressive biologic; Translations: [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 (current) use of immunosuppressive biologic] Onset: 3 [...] Episodic Other aftercare (20 sources) 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 methotrexate user; Translations: [Other halfway (current) drug therapy] Onset: 7 08-29-2017 Episodic Other aftercare (20 sources) Long-term current use of drug therapy; Translations: [Other 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 (current) drug therapy] Onset: 5 Episodic Other aftercare (20 sources) Drug therapy finding; Translations: [Other 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 (current) drug therapy] Onset: 7 Episodic Other aftercare (12 sources) Long-term current use of antibiotic; Translations: [prison (current) use of antibiotics] Onset: 1 Resolved: 2 Episodic Other aftercare (11 sources) Drug indicated; Translations: [Infliximab (Remicade) long-term use] Onset: 3 07-04-2023 Episodic Other aftercare (6 sources) Long-term current use of anticoagulant; Translations: [prison (current) use of anticoagulants] Onset: 5 01-25-2025 Episodic Other aftercare (5 sources) 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 of non-steroidal anti-inflammatory drug; Translations: [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 (current) use of non-steroidal anti-inflammatories (NSAID)] Onset: 7 Resolved: 5 01-25-2025 Episodic Other aftercare (2 sources) Other 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 (current) drug therapy; Translations: [Other 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 (current) drug therapy] Onset: 5 Episodic Other aftercare (3 sources) 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 (current) use of anticoagulants; Translations: [prison (current) use of anticoagulants] Onset: 5 Episodic Other aftercare (2 sources) 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 (current) use of non-steroidal anti-inflammatories (NSAID); Translations: [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 (current) use of non-steroidal anti-inflammatories (nsaid)] Onset: [...] current use of drug therapy; Translations: [Other halfway (current) drug therapy] 09-25-2018 Unclassified (1 source) Seborrheic keratosis 01-25-2025 Unclassified (1 source) 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 (current) use of antimetabolite agent; Translations: [prison (current) use of antimetabolite agent] Onset: 5 Unclassified (1 source) 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 (current) use of immunosuppressive biologic; Translations: [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 (current) use of immunosuppressive biologic] Onset: 5 Results Test Name Value Interpretation Reference Range Facility Abdomen/Pelvis W IV Cont ONL Yon 06-21-2025 Abdomen/Pelvis W IV Cont ONLY Normal [facility] Absolute lymphocyte countOrd ered By: Edgar Gudino on 06-21-2025 Lymphocytes Auto (Unsp spec) [#/Vol] 1.01 10*3/uL 0.83-4.51 [facility] Absolute neutrophil countOrd ered By: Edgar Gudino on 06-21-2025 Neutrophils (Bld) [#/Vol] 9.7 10*3/uL High 2.0-7.7 [facility] Anion gap in Serum or Plasma Ordered By: Edgar Gudino on 06-21-2025 Anion gap [Moles/Vol] 15 mmol/L 5-15 [facility] Automated lymphocyte count a s percentage of total leukocytesOrdered By: Edgar Gudino on 06-21-2025 Lymphocytes/100 WBC Auto (Unsp spec) 8.8 % Low 19-41 [facility] BUN/creatinine ratioOrdered By: Edgar Gudino on 06-21-2025 Urea nitrogen/Creatinine [Mass ratio] 22.6 mg/mg High 10-20 [facility] Basophil percentageOrdered B y: Edgar Gudino on 06-21-2025 Basophils/100 WBC (Bld) 0.3 % 0-1 [facility] Bilirubin Test strip Ql (U)O rdered By: Edgar Gudino on 06-21-2025 Bilirubin Ql (U) Negative Negative [facility] Bilirubin, totalOrdered By: Edgar Gudino on 06-21-2025 Bilirubin [Mass/Vol] 1.03 mg/dL 0.00-1.30 [facility] CBC W/Diff, Automatedon Absolute Lymph 1.01 X10 3/uL Normal 0.83-4.51 [facility] Comment on above: Performed By: #### L 100.0100, M100.7900 ####[facility] [address] [place], [address] Absolute Neut 9.7 X10 3/uL High 2.0-7.7 [facility] Comment on above: Performed By: #### L 100.0100, M100.7900 ####[facility] [address] [place], [address] Basophils/100 WBC (Bld) 0.3 % Normal 0-1 [facility] Comment on above: Performed By: #### L 100.0100, M100.7900 ####[facility] [address] [place], [address] Eosinophils/100 WBC (Bld) 0.7 % Normal 0-5 [facility] Comment on above: Performed By: #### L 100.0100, M100.7900 ####[facility] [address] [place], [address] Erythrocyte distribution width (RBC) [Ratio] 12.7 % Normal 11.6-14.6 [facility] Comment on above: Performed By: #### L 100.0100, M100.7900 ####[facility] [address] [place], [address] Hematocrit (Bld) [Volume fraction] 43.5 % Normal 40-54 [facility] Comment on above: Performed By: #### L 100.0100, M100.7900 ####[facility] [address] [place], [address] Hemoglobin (Bld) [Mass/Vol] 15.7 g/dL Normal 13.0-16.5 [facility] Comment on above: Performed By: #### L 100.0100, M100.7900 ####[facility] [address] [place], [address] IG% 0.300 Normal 0.0-0.9 [facility] Comment on above: Result Comment: IG% - Immature Granulocytes (promyelocytes, myelocytes andmetamyelocytes) > 1% indicates that a LEFT SHIFT is Present. Performed By: #### L 100.0100, M100.7900 ####[facility] [address] [place], [address] Lymphocytes/100 WBC (Bld) 8.8 % Low 19-41 [facility] Comment on above: Performed By: #### L 100.0100, M100.7900 ####[facility] [address] [place], [address] MCH (RBC) [Entitic mass] 33.9 pg High 27.0-32.0 [facility] Comment on above: Performed By: #### L 100.0100, M100.7900 ####[facility] [address] [place], [address] MCHC (RBC) [Mass/Vol] 36.1 g/dL High 32-36 [facility] Comment on above: Performed By: #### L 100.0100, M100.7900 ####[facility] [address] [place], [address] MCV (RBC) [Entitic vol] 94.0 fL Normal 80-94 [facility] Comment on above: Performed By: #### L 100.0100, M100.7900 ####[facility] [address] [place], [address] Monocytes/100 WBC (Bld) 5.6 % Normal 0-10 [facility] Comment on above: Performed By: #### L 100.0100, M100.7900 ####[facility] [address] [place], [address] Neutrophils/100 WBC (Bld) 84.3 % High 47-70 [facility] Comment on above: Performed By: #### L 100.0100, M100.7900 ####[facility] [address] [place], [address] Nucleated RBC (Bld) [#/Vol] 0 10*3/uL Normal 0-5 [facility] Comment on above: Performed By: #### L 100.0100, M100.7900 ####[facility] [address] [place], [address] Platelet mean volume (Bld) [Entitic vol] 10.5 fL Normal 6.2-12.0 [facility] Comment on above: Performed By: #### L 100.0100, M100.7900 ####[facility] [address] [place], [address] Platelets (Bld) [#/Vol] 234 10*3/uL Normal 150-450 [facility] Comment on above: Performed By: #### L 100.0100, M100.7900 ####[facility] [address] [place], [address] RBC (Bld) [#/Vol] 4.63 10*6/uL Normal 4.6-6.2 [facility] Comment on above: Performed By: #### L 100.0100, M100.7900 ####[facility] [address] [place], [address] RDW SD 41.9 fl Normal 35.1-43.9 [facility] Comment on above: Performed By: #### L 100.0100, M100.7900 ####[facility] [address] [place], [address] WBC (Bld) [#/Vol] 11.5 10*3/uL High 4.4-11.0 [facility] Comment on above: Performed By: #### L 100.0100, M100.7900 ####[facility] [address] [place], [address] Carbon dioxide, total [Moles /volume] in Central venous bloodOrdered By: Edgar Gudino on 06-21-2025 CO2 [Moles/Vol] 19.1 mmol/L Low 21.0-32.0 [facility] Chloride assayOrdered By: Candelario Gudino on 06-21-2025 Chloride [Moles/Vol] 101 mmol/L 98-108 [facility] Comprehensive Metabolic Prof ilon 06-21-2025 Albumin [Mass/Vol] 4.5 g/dL Normal 3.4-4.8 [facility] Comment on above: Performed By: #### L 503.6005, L501.2450, L500.4050 ####[facility] [address] [place], [address] Albumin/Globulin [Mass ratio] 1.2 {ratio} Normal 0.9-2.4 [facility] Comment on above: Performed By: #### L 503.6005, L501.2450, L500.4050 ####[facility] [address] [place], [address] ALK PHOS 98 U/L Normal 40-129 [facility] Comment on above: Performed By: #### L 503.6005, L501.2450, L500.4050 ####[facility] [address] [place], [address] ALT [Catalytic activity/Vol] 69 U/L High <=46 [facility] Comment on above: Performed By: #### L 503.6005, L501.2450, L500.4050 ####[facility] [address] [place], [address] AST [Catalytic activity/Vol] 55 U/L High <=37 [facility] Comment on above: Performed By: #### L 503.6005, L501.2450, L500.4050 ####[facility] [address] [place], [address] Bilirubin [Mass/Vol] 1.03 mg/dL Normal 0.00-1.30 [facility] Comment on above: Performed By: #### L 503.6005, L501.2450, L500.4050 ####[facility] [address] [place], [address] BUN/CRE 22.6 RATIO High 10-20 [facility] Comment on above: Performed By: #### L 503.6005, L501.2450, L500.4050 ####[facility] [address] [place], [address] Calcium [Mass/Vol] 11.2 mg/dL High 7.6-11.0 [facility] Comment on above: Performed By: #### L 503.6005, L501.2450, L500.4050 ####[facility] [address] [place], [address] Chloride [Moles/Vol] 101 mmol/L Normal 98-108 [facility] Comment on above: Performed By: #### L 503.6005, L501.2450, L500.4050 ####[facility] [address] [place], [address] CO2 [Moles/Vol] 19.1 mmol/L Low 21.0-32.0 [facility] Comment on above: Performed By: #### L 503.6005, L501.2450, L500.4050 ####[facility] [address] [place], [address] Creatinine [Mass/Vol] 1.92 mg/dL High 0.70-1.20 [facility] Comment on above: Performed By: #### L 503.6005, L501.2450, L500.4050 ####[facility] [address] [place], [address] ECRCL 33.12 ml/min Low 50-250 [facility] Comment on above: Performed By: #### L 503.6005, L501.2450, L500.4050 ####[facility] [address] [place], [address] GAP 15 Normal 5-15 [facility] Comment on above: Performed By: #### L 503.6005, L501.2450, L500.4050 ####[facility] [address] [place], [address] GFR/1.73 sq M.predicted among non-blacks MDRD (S/P/Bld) [Vol rate/Area] 35 mL/min/{1.73_m2} Low >60 [facility] Comment on above: Result Comment: mL/m in/1.73m2 CKD-EPI Creatinine Equation (2020) Performed By: #### L 503.6005, L501.2450, L500.4050 ####[facility] [address] [place], [address] Globulin (S) [Mass/Vol] 3.9 g/dL Normal 2.2-4.2 [facility] Comment on above: Performed By: #### L 503.6005, L501.2450, L500.4050 ####[facility] [address] [place], [address] Glucose [Mass/Vol] 202 mg/dL High 70-99 [facility] Comment on above: Performed By: #### L 503.6005, L501.2450, L500.4050 ####[facility] [address] [place], [address] Potassium [Moles/Vol] 4.8 mmol/L Normal 3.3-5.1 [facility] Comment on above: Performed By: #### L 503.6005, L501.2450, L500.4050 ####[facility] [address] [place], [address] Sodium [Moles/Vol] 135 mmol/L Normal 133-145 [facility] Comment on above: Performed By: #### L 503.6005, L501.2450, L500.4050 ####[facility] [address] [place], [address] T PROT 8.4 g/dL Normal 5.9-8.4 [facility] Comment on above: Performed By: #### L 503.6005, L501.2450, L500.4050 ####[facility] [address] [place], [address] Urea nitrogen [Mass/Vol] 43 mg/dL High 4-19 [facility] Comment on above: Performed By: #### L 503.6005, L501.2450, L500.4050 ####[facility] [address] [place], [address] Emergency Department Summary on 06-21-2025 Emergency Department Summary Normal [facility] Eosinophil percentageOrdered By: Edgar Gudino on 06-21-2025 Eosinophils/100 WBC (Bld) 0.7 % 0-5 [facility] Erythrocyte distribution wid th ratioOrdered By: Edgar Gudino on 06-21-2025 Erythrocyte distribution width (RBC) [Ratio] 12.7 % 11.6-14.6 [facility] Erythrocyte distribution wid th standard deviationOrdered By: Edgar Manning on 06-21-2025 Erythrocyte distribution width (RBC) [Ratio] 41.9 fl 35.1-43.9 [facility] Glomerular filtration rate ( GFR) estimation/1.73 sq m using serum, plasma, or whole bOrdered By: Edgar Gudino on 06-21-2025 GFR/1.73 sq M.predicted among non-blacks MDRD (S/P/Bld) [Vol rate/Area] 35 mL/min/{1.73_m2} Low >60 [facility] Comment on above: mL/min/1.73m2 CKD-EP I Creatinine Equation (2020) Hematocrit Auto (Bld) [Volum e fraction]Ordered By: Edgar Gudino on 06-21-2025 Hematocrit (Bld) [Volume fraction] 43.5 % 40-54 [facility] Hemoglobin measurementOrdere d By: Edgar Gudino on 06-21-2025 Hemoglobin (Bld) [Mass/Vol] 15.7 g/dL 13.0-16.5 [facility] Immature granulocytes/100 WB C Auto (Bld)Ordered By: Edgar Gudino on 06-21-2025 Immature granulocytes/100 WBC (Bld) 0.300 % 0.0-0.9 [facility] Comment on above: IG% - Immature Granu locytes (promyelocytes, myelocytes and metamyelocytes) > 1% indicates that a LEFT SHIFT is Present. Ketones Test strip Ql (U)Ord ered By: Edgar Gudino on 06-21-2025 Ketones Ql (U) Negative Negative [facility] Laboratory - Chemistry and C hemistry - challengeOrdered By: Edgar Gudino on 06-21-2025 AST [Catalytic activity/Vol] 55 U/L High <38 [facility] Lactic Acidon 06-21-2025 Lactate [Moles/Vol] 1.5 mmol/L Normal 0.0-2.0 [facility] Comment on above: Order Comment: Y Performed By: #### L 503.6628, L501.2450, L500.4050 ####[facility] [address] [facility] [place], [place], [id number] Lactic acid measurementOrder ed By: Edgar Gudino on 06-21-2025 Lactate [Moles/Vol] 1.5 mmol/L 0.0-2.0 [facility] Lipase measurementOrdered By : Edgar Gudino on 06-21-2025 Lipase [Catalytic activity/Vol] 450 U/L High 13-75 [facility] Comment on above: Please note:LIPASE r evised reference range effective 23. New Lipase methodology. Expected to produce lower values than the previous assay method. NEW Reference Range: 13 - 75 U/L Result Comment: Sdi ott note:LIPASE revised reference range effective 23.New Lipase methodology. Expected to produce lower valuesthan the previous assay method.NEW Reference Range: 13 - 75 U/L Performed By: #### L 503.6005, L501.2450, L500.4050 ####[facility] [address] [place], [address] MCV (mean corpuscular volume ) determinationOrdered By: Edgar Gudino on 06-21-2025 MCV (RBC) [Entitic vol] 94.0 fL 80-94 [facility] Mean corpuscular hemoglobin (MCH) determinationOrdered By: Edgar Gudino on 06-21-2025 MCH (RBC) [Entitic mass] 33.9 pg High 27.0-32.0 [facility] Mean corpuscular hemoglobin concentration (MCHC) determinationOrdered By: Edgar Gudino on 06-21-2025 MCHC (RBC) [Mass/Vol] 36.1 g/dL High 32-36 [facility] Mean platelet volume determi nationOrdered By: Edgar Gudino on 06-21-2025 Platelet mean volume (Bld) [Entitic vol] 10.5 fL 6.2-12.0 [facility] Microscopic analysis of urin e for red blood cells (RBC)Ordered By: Edgar Gudino on 06-21-2025 Microscopic analysis of urine for red blood cells (RBC) 0-5 SEEN /hpf 0-5 [facility] Monocyte percentageOrdered B y: Edgar Gudino on 06-21-2025 Monocytes/100 WBC (Bld) 5.6 % 0-10 [facility] Mucus LM Ql (Urine sed)Order ed By: Edgar Gudino on 06-21-2025 Mucus Ql (Urine sed) 0 SEEN /hpf [facility] Neutrophil percentageOrdered By: Edgar Gudino on 06-21-2025 Neutrophils/100 WBC (Bld) 84.3 % High 47-70 [facility] Nitrite Test strip Ql (U)Ord ered By: Edgar Gudino on 06-21-2025 Nitrite Ql (U) Negative Negative [facility] Nucleated red blood cell per centageOrdered By: Edgar Gudino on 06-21-2025 Nucleated RBC/100 WBC (Bld) [Ratio] 0 % 0-5 [facility] Platelet countOrdered By: Candelario Gudino on 06-21-2025 Platelets (Bld) [#/Vol] 234 10*3/uL 150-450 [facility] Potassium measurement (mass/ volume)Ordered By: Edgar Gudino on 06-21-2025 Potassium (Unsp spec) [Mass/Vol] 4.8 mmol/L 3.3-5.1 [facility] Protein Test strip Ql (U)Ord ered By: Edgar Gudino on 06-21-2025 Protein Ql (U) 30 mg/dl High Negative [facility] RBC Auto (Bld) [#/Vol]Ordere d By: Edgar Gudino on 06-21-2025 RBC (Bld) [#/Vol] 4.63 10*6/uL 4.6-6.2 [facility] Serum creatinine measurement (mass/volume)Ordered By: Edgar Gudino on 06-21-2025 Creatinine [Mass/Vol] 1.92 mg/dL High 0.70-1.20 [facility] Serum globulin measurementOr dered By: Edgar Gudino on 06-21-2025 Globulin (S) [Mass/Vol] 3.9 g/dL 2.2-4.2 [facility] Serum glucose measurement (m ass/volume)Ordered By: Edgar Gudino on 06-21-2025 Glucose [Mass/Vol] 202 mg/dL High 70-99 [facility] Serum or plasma alanine pham otransferase (ALT) measurementOrdered By: Edgar Gudino on 06-21-2025 ALT [Catalytic activity/Vol] 69 U/L High <47 [facility] Serum or plasma albumin amadou urement (mass/volume)Ordered By: Edgar Manning on 06-21-2025 Albumin [Mass/Vol] 4.5 g/dL 3.4-4.8 [facility] Serum or plasma albumin/glob ulin mass ratioOrdered By: Edgar Gudino on 06-21-2025 Albumin/Globulin [Mass ratio] 1.2 {ratio} 0.9-2.4 [facility] Serum or plasma alkaline jovana sphatase measurementOrdered By: Edgar Gudino on 06-21-2025 ALP [Catalytic activity/Vol] 98 U/L 40-129 [facility] Serum or plasma calcium amadou urement (mass/volume)Ordered By: Edgar Manning on 06-21-2025 Calcium [Mass/Vol] 11.2 mg/dL High 7.6-11.0 [facility] Serum or plasma urea nitroge n measurement (mass/volume)Ordered By: Edgar Gudino on 06-21-2025 Urea nitrogen [Mass/Vol] 43 mg/dL High 4-19 [facility] Sodium levelOrdered By: Aly Gudino on 06-21-2025 Sodium [Moles/Vol] 135 mmol/L 133-145 [facility] Squamous epithelial cells de tection in urine sediment by light microscopyOrdered By: Edgar Gudino on 06-21-2025 Epithelial cells.squamous LM Ql (Urine sed) 0-5 SEEN /hpf 0-5 [facility] Stool Occult Blood iFOBon STOB Positive Normal [facility] Comment on above: Performed By: #### L 100.0100, M100.7900 ####[facility] [address] [place], [address] Stool gastrointestinal hemog lobin detection by immunologic methodOrdered By: Edgar Gudino on 06-21-2025 Lower GI hemoglobin IA Ql (Stl) Positive Abnormal [facility] Total proteinOrdered By: Pj Gudino on 06-21-2025 Protein [Mass/Vol] 8.4 g/dL 5.9-8.4 [facility] Urinalysis, Completeon 06-21 EPI,SQUAMOUS 0-5 SEEN Normal 0-5 [facility] Comment on above: Order Comment: CLEAN CATCH Performed By: #### L 400.0001 ####[facility] [address] [place], [address] RBC 0-5 SEEN Normal 0-5 [facility] Comment on above: Order Comment: CLEAN CATCH Performed By: #### L 400.0001 ####[facility] [address] [place], [address] WBC 0-5 SEEN Normal 0-5 [facility] Comment on above: Order Comment: CLEAN CATCH Performed By: #### L 400.0001 ####[facility] [address] [place], [address] BACTERIA 0 SEEN Normal None Seen [facility] Comment on above: Order Comment: CLEAN CATCH Performed By: #### L 400.0001 ####[facility] [address] [place], [address] Mucus Ql (Urine sed) 0 SEEN Normal [facility] Comment on above: Order Comment: CLEAN CATCH Performed By: #### L 400.0001 ####[facility] [address] [place], [address] Urine clarityOrdered By: Pj Gudino on 06-21-2025 Clarity (U) Clear Clear [facility] Urine color determinationOrd ered By: Edgar Gudino on 06-21-2025 Color (U) Yellow Yellow [facility] Urine glucose detectionOrder ed By: Edgar Gudino on 06-21-2025 Glucose Ql (U) 1000 mg/dl High Normal [facility] Urine leukocyte esterase det ection by dipstickOrdered By: Edgar Gudino on 06-21-2025 Leukocyte esterase Test strip Ql (U) Negative Negative [facility] Urine pHOrdered By: Edgar Grissom on 06-21-2025 pH (U) 5.0 [pH] 5.0 - 8.0 [facility] Urine sediment bacteria coun t by microscopy (number/high power field)Ordered By: Edgar Gudino on 06-21-2025 Bacteria LM.HPF (Urine sed) [#/Area] 0 /[HPF] None Seen [facility] Urine specific gravity measu rementOrdered By: Edgar Gudino on 06-21-2025 Specific gravity (U) [Rel density] 1.020 1.002-1.030 [facility] Urine urobilinogen measureme ntOrdered By: Edgar Gudino on 06-21-2025 Urobilinogen Ql (U) Normal mg/dl Normal [facility] White blood cell (WBC) count Ordered By: Edgar Gudino on 06-21-2025 WBC (Bld) [#/Vol] 11.5 10*3/uL High 4.4-11.0 [facility] White blood cell countOrdere d By: Edgar Gudino on 06-21-2025 White blood cell count 0-5 SEEN /hpf 0-5 [facility] Office Visiton 06-12-2025 Follow-up visit [id number] Yessi Hatch 1945 M Date Provider Department Center 06/12/2025 60701-HQGYGEORGINA CONRAD [facility] [place] None No family history on file Level of Service:22141 NM OFFICE/OUTPATIENT ESTABLISHED MOD MDM 30 MIN Reason for Visit and Comments: Skin Lesion [[id number]] - EVAN-10/31/2024,ZB Normal [facility] Progress Noteon 06-12-2025 Progress Note DATE OF SERVICE: 06/12/2025 PATIENT NAME: Yessi Hatch : 1945 AGE: 79 y.o. CLINIC NUMBER: [id number] Visit type: Established patient Chief Complaint Patient presents with Skin Lesion EVAN-10/31/2024,ZB Subjective HISTORY OF PRESENT ILLNESS: This is a 79 y.o. male who presents for evaluation of skin lesion; last seen 10/31/2024. Patient states he is on inflectra infusion for psoriatic arthritis. Pt h/o numerous BCC and SCC. F/u- actinic keratoses located on the Left Forehead, Left Parotid Area, Left Tenriism, Left Temporal Scalp, Left Zygomatic Area, Right Forehead, Right Parotid Area, Right Tenriism, Right Temporal Scalp, Right Zygomatic Area At [...] Systems Orders Placed This Encounter Medications fluocinolone (Clarcona-Smoothe) 0.01 % external oil Sig: Apply to [...] Moore MD 06/12/25 7:49 AM REFERRING MD: [facility] AST(SGOT)on 06-11-2025 AST [Catalytic activity/Vol] 50 U/L High <=37 [facility] Comment on above: Performed By: #### L 501.4100, L501.5 ####[facility] [address] [place], [place], [id number] Alanine Aminotransferas (SGP T)on 06-11-2025 ALT [Catalytic activity/Vol] 65 U/L High <=46 [facility] Comment on above: Performed By: #### L 501.4100, L501.4405 ####[facility] [address] [place], [place], [id number] Laboratory - Chemistry and C hemistry - challengeOrdered By: Coco Shah on 06-11-2025 AST [Catalytic activity/Vol] 50 U/L High <38 [facility] Serum or plasma alanine pham otransferase (ALT) measurementOrdered By: Coco Shah on 06-11-2025 ALT [Catalytic activity/Vol] 65 U/L High <47 [facility] AST(SGOT)on 05-28-2025 AST [Catalytic activity/Vol] 47 U/L High <=37 [facility] Comment on above: Order Comment: FAX R ESULTS TO [phone] Performed By: #### L 501.4405, L501.1105, L100.0100, L101.9900, L501.6710, L501.4100 ####[facility] [address] [place], [place], [address] Absolute lymphocyte countOrd ered By: Coco Shah on 05-28-2025 Lymphocytes Auto (Unsp spec) [#/Vol] 1.62 10*3/uL 0.83-4.51 [facility] Absolute neutrophil countOrd ered By: Coco Shah on 05-28-2025 Neutrophils (Bld) [#/Vol] 3.2 10*3/uL 2.0-7.7 [facility] Alanine Aminotransferas (SGP T)on 05-28-2025 ALT [Catalytic activity/Vol] 49 U/L High <=46 [facility] Comment on above: Order Comment: FAX R ESULTS TO [phone] Performed By: #### L 501.4405, L501.1105, L100.0100, L101.9900, L501.6710, L501.4100 ####[facility] [address] [place], [place], [id number] Automated lymphocyte count a s percentage of total leukocytesOrdered By: Coco Shah on 05-28-2025 Lymphocytes/100 WBC Auto (Unsp spec) 22.0 % 19-41 [facility] Basophil percentageOrdered B y: Coco Shah on 05-28-2025 Basophils/100 WBC (Bld) 0.8 % 0-1 [facility] CBC W/Diff, Automatedon 05-14 Absolute Lymph 1.62 X10 3/uL Normal 0.83-4.51 [facility] Comment on above: Performed By: #### L 501.4405, L501.1105, L100.0100, L101.9900, L501.6710, L501.4100 ####[facility] [address] [place], [address] Absolute Neut 3.2 X10 3/uL Normal 2.0-7.7 [facility] Comment on above: Performed By: #### L 501.4405, L501.1105, L100.0100, L101.9900, L501.6710, L501.4100 ####[facility] [address] [place], [address] Basophils/100 WBC (Bld) 0.8 % Normal 0-1 [facility] Comment on above: Performed By: #### L 501.4405, L501.1105, L100.0100, L101.9900, L501.6710, L501.4100 ####[facility] [address] [place], [address] Eosinophils/100 WBC (Bld) 22.6 % High 0-5 [facility] Comment on above: Performed By: #### L 501.4405, L501.1105, L100.0100, L101.9900, L501.6710, L501.4100 ####[facility] [address] [place], [address] Erythrocyte distribution width (RBC) [Ratio] 12.4 % Normal 11.6-14.6 [facility] Comment on above: Performed By: #### L 501.4405, L501.1105, L100.0100, L101.9900, L501.6710, L501.4100 ####[facility] [address] [place], [address] Hematocrit (Bld) [Volume fraction] 38.9 % Low 40-54 [facility] Comment on above: Performed By: #### L 501.4405, L501.1105, L100.0100, L101.9900, L501.6710, L501.4100 ####[facility] [address] [place], [address] Hemoglobin (Bld) [Mass/Vol] 13.2 g/dL Normal 13.0-16.5 [facility] Comment on above: Performed By: #### L 501.4405, L501.1105, L100.0100, L101.9900, L501.6710, L501.4100 ####[facility] [address] [place], [address] IG% 0.300 Normal 0.0-0.9 [facility] Comment on above: Result Comment: IG% - Immature Granulocytes (promyelocytes, myelocytes andmetamyelocytes) > 1% indicates that a LEFT SHIFT is Present. Performed By: #### L 501.4405, L501.1105, L100.0100, L101.9900, L501.6710, L501.4100 ####[facility] [address] [place], [address] Lymphocytes/100 WBC (Bld) 22.0 % Normal 19-41 [facility] Comment on above: Performed By: #### L 501.4405, L501.1105, L100.0100, L101.9900, L501.6710, L501.4100 ####[facility] [address] [place], [address] MCH (RBC) [Entitic mass] 31.8 pg Normal 27.0-32.0 [facility] Comment on above: Performed By: #### L 501.4405, L501.1105, L100.0100, L101.9900, L501.6710, L501.4100 ####[facility] [address] [place], [address] MCHC (RBC) [Mass/Vol] 33.9 g/dL Normal 32-36 [facility] Comment on above: Performed By: #### L 501.4405, L501.1105, L100.0100, L101.9900, L501.6710, L501.4100 ####[facility] [address] [place], [address] MCV (RBC) [Entitic vol] 93.7 fL Normal 80-94 [facility] Comment on above: Performed By: #### L 501.4405, L501.1105, L100.0100, L101.9900, L501.6710, L501.4100 ####[facility] [address] [place], [address] Monocytes/100 WBC (Bld) 11.2 % High 0-10 [facility] Comment on above: Performed By: #### L 501.4405, L501.1105, L100.0100, L101.9900, L501.6710, L501.4100 ####[facility] [address] [place], [address] Neutrophils/100 WBC (Bld) 43.1 % Low 47-70 [facility] Comment on above: Performed By: #### L 501.4405, L501.1105, L100.0100, L101.9900, L501.6710, L501.4100 ####[facility] [address] [place], [address] Nucleated RBC (Bld) [#/Vol] 0 10*3/uL Normal 0-5 [facility] Comment on above: Performed By: #### L 501.4405, L501.1105, L100.0100, L101.9900, L501.6710, L501.4100 ####[facility] [address] [place], [address] Platelet mean volume (Bld) [Entitic vol] 10.6 fL Normal 6.2-12.0 [facility] Comment on above: Performed By: #### L 501.4405, L501.1105, L100.0100, L101.9900, L501.6710, L501.4100 ####[facility] [address] [place], [address] Platelets (Bld) [#/Vol] 308 10*3/uL Normal 150-450 [facility] Comment on above: Performed By: #### L 501.4405, L501.1105, L100.0100, L101.9900, L501.6710, L501.4100 ####[facility] [address] [place], [address] RBC (Bld) [#/Vol] 4.15 10*6/uL Low 4.6-6.2 [facility] Comment on above: Performed By: #### L 501.4405, L501.1105, L100.0100, L101.9900, L501.6710, L501.4100 ####[facility] [address] [place], [address] RDW SD 42.8 fl Normal 35.1-43.9 [facility] Comment on above: Performed By: #### L 501.4405, L501.1105, L100.0100, L101.9900, L501.6710, L501.4100 ####[facility] [address] [place], [address] WBC (Bld) [#/Vol] 7.4 10*3/uL Normal 4.4-11.0 [facility] Comment on above: Performed By: #### L 501.4405, L501.1105, L100.0100, L101.9900, L501.6710, L501.4100 ####[facility] [address] [place], [place], [address] CRPon 05-28-2025 C-REACTIVE PROT < 3.00 Normal 0.0-3.0 [facility] Comment on above: Order Comment: FAX R ESULTS TO [phone] Performed By: #### L 501.4405, L501.1105, L100.0100, L101.9900, L501.6710, L501.4100 ####[facility] [address] [place], [address] Eosinophil percentageOrdered By: Coco Shah on 05-28-2025 Eosinophils/100 WBC (Bld) 22.6 % High 0-5 [facility] Erythrocyte Sed Rateon 05-28 SED RATE 24 mm/hr High 0-20 [facility] Comment on above: Performed By: #### L 501.4405, L501.1105, L100.0100, L101.9900, L501.6710, L501.4100 ####[facility] [address] [place], [place], [address] Erythrocyte distribution wid th ratioOrdered By: Coco Shah on 05-28-2025 Erythrocyte distribution width (RBC) [Ratio] 12.4 % 11.6-14.6 [facility] Erythrocyte distribution wid th standard deviationOrdered By: Coco Shah on 05-28-2025 Erythrocyte distribution width (RBC) [Ratio] 42.8 fl 35.1-43.9 [facility] Erythrocyte sedimentation ra teOrdered By: Coco Shah on 05-28-2025 ESR (Bld) [Velocity] 24 mm/h High 0-20 [facility] Glomerular filtration rate ( GFR) estimation/1.73 sq m using serum, plasma, or whole bOrdered By: Coco Shah on 05-28-2025 GFR/1.73 sq M.predicted among non-blacks MDRD (S/P/Bld) [Vol rate/Area] 46 mL/min/{1.73_m2} Low >60 [facility] Comment on above: mL/min/1.73m2 CKD-EP I Creatinine Equation (2020) Hematocrit Auto (Bld) [Volum e fraction]Ordered By: Coco Shah on 05-28-2025 Hematocrit (Bld) [Volume fraction] 38.9 % Low 40-54 [facility] Hemoglobin measurementOrdere d By: Coco Shah on 05-28-2025 Hemoglobin (Bld) [Mass/Vol] 13.2 g/dL 13.0-16.5 [facility] Immature granulocytes/100 WB C Auto (Bld)Ordered By: Coco Shah on 05-28-2025 Immature granulocytes/100 WBC (Bld) 0.300 % 0.0-0.9 [facility] Comment on above: IG% - Immature Granu locytes (promyelocytes, myelocytes and metamyelocytes) > 1% indicates that a LEFT SHIFT is Present. Laboratory - Chemistry and C hemistry - challengeOrdered By: Coco Shah on 05-28-2025 AST [Catalytic activity/Vol] 47 U/L High <38 [facility] MCV (mean corpuscular volume ) determinationOrdered By: Coco Shah on 05-28-2025 MCV (RBC) [Entitic vol] 93.7 fL 80-94 [facility] Mean corpuscular hemoglobin (MCH) determinationOrdered By: Coco Shah 05-28-2025 MCH (RBC) [Entitic mass] 31.8 pg 27.0-32.0 [facility] Mean corpuscular hemoglobin concentration (MCHC) determinationOrdered By: Coco Sahh 05-28-2025 MCHC (RBC) [Mass/Vol] 33.9 g/dL 32-36 [facility] Mean platelet volume determi nationOrdered By: Coco Shah on 05-28-2025 Platelet mean volume (Bld) [Entitic vol] 10.6 fL 6.2-12.0 [facility] Monocyte percentageOrdered B y: Coco Shah on 05-28-2025 Monocytes/100 WBC (Bld) 11.2 % High 0-10 [facility] Neutrophil percentageOrdered By: Coco Shah on 05-28-2025 Neutrophils/100 WBC (Bld) 43.1 % Low 47-70 [facility] Nucleated red blood cell per centageOrdered By: Coco Shah on 05-28-2025 Nucleated RBC/100 WBC (Bld) [Ratio] 0 % 0-5 [facility] Platelet countOrdered By: Filemon isaiah Pablo on 05-28-2025 Platelets (Bld) [#/Vol] 308 10*3/uL 150-450 [facility] RBC Auto (Bld) [#/Vol]Ordere d By: Coco Shah on 05-28-2025 RBC (Bld) [#/Vol] 4.15 10*6/uL Low 4.6-6.2 [facility] Serum Creatinine AND GFRon 0 05-28-2025 Creatinine [Mass/Vol] 1.52 mg/dL High 0.70-1.20 [facility] Comment on above: Order Comment: FAX R ESULTS TO [phone] Performed By: #### L 501.4405, L501.1105, L100.0100, L101.9900, L501.6710, L501.4100 ####[facility] [address] [place], [place], [id number] GFR/1.73 sq M.predicted among non-blacks MDRD (S/P/Bld) [Vol rate/Area] 46 mL/min/{1.73_m2} Low >60 [facility] Comment on above: Order Comment: FAX R ESULTS TO [phone] Result Comment: mL/m in/1.73m2 CKD-EPI Creatinine Equation (2020) Performed By: #### L 501.4405, L501.1105, L100.0100, L101.9900, L501.6710, L501.4100 ####[facility] [address] [place], [place], [id number] Serum creatinine measurement (mass/volume)Ordered By: Coco Shah on 05-28-2025 Creatinine [Mass/Vol] 1.52 mg/dL High 0.70-1.20 [facility] Serum or plasma C reactive p rotein measurement (mass/volume)Ordered By: Coco Shah on 05-28-2025 CRP [Mass/Vol] mg/L 0.0-3.0 [facility] Serum or plasma alanine pham otransferase (ALT) measurementOrdered By: Coco [facility] on 05-28-2025 ALT [Catalytic activity/Vol] 49 U/L High <47 [facility] White blood cell (WBC) count Ordered By: Coco [facility] on 05-28-2025 WBC (Bld) [#/Vol] 7.4 10*3/uL 4.4-11.0 [facility] PSA,Total- Diagnosticon 05-14 PSA, DIAGNOSTIC 0.57 ng/mL Normal 0.00-4.00 [facility] Comment on above: Result Comment: This test was performed using the [employer] tPSAmethod. Measured values of a patient??sample can varydepending on the testing procedure used. PSA valuesdetermined on patient samples by different testingprocedures cannot be used interchangeably. If there is achange in PSA assays while monitoring therapy, sequentialtesting should be performed to confirm baseline values. Performed By: #### L 501.9940 ####[facility] [address], [place], [id number] 25 0H VITAMIN D LEVELon 25 0H VITAMIN D LEVEL 80.5 NG/ML Normal [facility]3] Comment on above: Result Comment: DEFICIENT <20 NG/ML INSUFFICIENT 20-<30 NG/ML SUFFICIENT 30-100 NG/ML POTENTIAL TOXICITY >100 NG/ML Performed By: #### V ITD #### Testing performed at [address] [address] CBCon 05-22-2025 ABSOLUTE BAS 0.2 10*3/uL Normal 0.0-0.2 [facility] Comment on above: Performed By: #### A CBC, MG, URIC, RENF, IPTH #### Testing performed at [address] [address] ABSOLUTE EOS 1.4 10*3/uL High 0.0-0.7 [facility] Comment on above: Performed By: #### A CBC, MG, URIC, RENF, IPTH #### Testing performed at [address] [place] [address] ABSOLUTE NEUTROPHIL COUNT 3.4 10*3/uL Normal 1.4-6.5 [facility] Comment on above: Performed By: #### A CBC, MG, URIC, RENF, IPTH #### Testing performed at [address] [place] [address] Basophils/100 WBC (Bld) 2.6 % High 0.0-2.0 [facility] Comment on above: Performed By: #### A CBC, MG, URIC, RENF, IPTH #### Testing performed at [address] [address] DTYPE AUTO DIFF Normal [facility] Comment on above: Performed By: #### A CBC, MG, URIC, RENF, IPTH #### Testing performed at [address] [address] Eosinophils/100 WBC (Bld) 19.1 % High 0.0-11.0 [facility] Comment on above: Performed By: #### A CBC, MG, URIC, RENF, IPTH #### Testing performed at [address] [address] Lymphocytes (Bld) [#/Vol] 1.5 10*3/uL Normal 1.2-3.4 [facility] Comment on above: Performed By: #### A CBC, MG, URIC, RENF, IPTH #### Testing performed at [address] [address] Lymphocytes/100 WBC (Bld) 21.2 % Normal 20.0-55.0 [facility] Comment on above: Performed By: #### A CBC, MG, URIC, RENF, IPTH #### Testing performed at [address] [address] Monocytes (Bld) [#/Vol] 0.7 10*3/uL Normal 0.0-0.7 [facility] Comment on above: Performed By: #### A CBC, MG, URIC, RENF, IPTH #### Testing performed at [address] [address] Monocytes/100 WBC (Bld) 10.0 % Normal 0.0-10.0 [facility] Comment on above: Performed By: #### A CBC, MG, URIC, RENF, IPTH #### Testing performed at [address] [address] Neutrophils/100 WBC (Bld) 47.1 % Normal 37.0-75.0 [facility] Comment on above: Performed By: #### A CBC, MG, URIC, RENF, IPTH #### Testing performed at [address] [address] Erythrocyte distribution width (RBC) [Ratio] 13.7 % Normal 11.5-14.5 [facility] Comment on above: Performed By: #### A CBC, MG, URIC, RENF, IPTH #### Testing performed at [address] [address] Hematocrit (Bld) [Volume fraction] 41.3 % Low 42.0-52.0 [facility] Comment on above: Performed By: #### A CBC, MG, URIC, RENF, IPTH #### Testing performed at [address] [address] Hemoglobin (Bld) [Mass/Vol] 14.2 g/dL Normal 14.0-18.0 [facility] Comment on above: Performed By: #### A CBC, MG, URIC, RENF, IPTH #### Testing performed at [address] [address] MCH (RBC) [Entitic mass] 33.2 pg Normal 26.0-35.0 [facility] Comment on above: Performed By: #### A CBC, MG, URIC, RENF, IPTH #### Testing performed at [address] [address] MCHC (RBC) [Mass/Vol] 34.3 g/dL Normal 27.0-37.0 [facility]3] Comment on above: Performed By: #### A CBC, MG, URIC, RENF, IPTH #### Testing performed at [address] [address] MCV (RBC) [Entitic vol] 96.6 fL Normal 80.0-100.0 [facility] Comment on above: Performed By: #### A CBC, MG, URIC, RENF, IPTH #### Testing performed at [address] [address] Platelet mean volume (Bld) [Entitic vol] 8.6 fL Normal 7.4-11.0 [facility] Comment on above: Performed By: #### A CBC, MG, URIC, RENF, IPTH #### Testing performed at [address] [address] Platelets (Bld) [#/Vol] 283 10*3/uL Normal 130-400 [facility] Comment on above: Performed By: #### A CBC, MG, URIC, RENF, IPTH #### Testing performed at [address] [address] RBC (Bld) [#/Vol] 4.28 10*6/uL Normal 4.0-6.1 [facility] Comment on above: Performed By: #### A CBC, MG, URIC, RENF, IPTH #### Testing performed at [address] [address] WBC (Bld) [#/Vol] 7.2 10*3/uL Normal 3.6-11.0 [facility] Comment on above: Performed By: #### A CBC, MG, URIC, RENF, IPTH #### Testing performed at [address] [address] MAGNESIUMon 05-22-2025 Magnesium [Mass/Vol] 2.2 mg/dL Normal 1.6-2.3 [facility] Comment on above: Performed By: #### A CBC, MG, URIC, RENF, IPTH #### Testing performed at [address] [address] MALB/CREAT RATIO,URINEon MALB/CREAT RATIO,URINE 94.0 mg MALB/g CREAT High 1.3 -30.0 [facility] Comment on above: Performed By: #### A CBC, MG, URIC, RENF, IPTH #### Testing performed at [facility] [place] [facility] [address] [place] [address] MICROALBUMIN,RANDOM URINE 45.5 mg/L High 0.0-16.7 [facility] Comment on above: Performed By: #### A CBC, MG, URIC, RENF, IPTH #### Testing performed at [address] [address] URINE CREATININE RANDOM 48.4 MG/DL Normal [facility] Comment on above: Result Comment: NO N ORMAL VALUES ESTABLISHED FOR RANDOM SPECIMENS Performed By: #### A CBC, MG, URIC, RENF, IPTH #### Testing performed at [address] [address] PROTEIN CREATININE RATIOon 0 05-22-2025 PROTEIN CREATININE RATIO 0.3 Normal [facility] Comment on above: Result Comment: REFERENCE RANGES <0.2 NORMAL 0.2-3.5 NON-NEPHROTIC >3.5 NEPHROTIC Performed By: #### P CR #### Testing performed at [address] [address] URINE CREATININE RANDOM 48.4 MG/DL Normal [facility] Comment on above: Result Comment: NO N ORMAL VALUES ESTABLISHED FOR RANDOM SPECIMENS Performed By: #### P CR #### Testing performed at [address] [address] URINE TP RANDOM 16 MG/DL High 0-12 [facility] Comment on above: Performed By: #### P CR #### Testing performed at [address] [address] PTH,INTACTon 05-22-2025 PTH,INTACT 34.7 pg/mL Normal 14.5-75.2 [facility] Comment on above: Performed By: #### A CBC, MG, URIC, RENF, IPTH #### Testing performed at [address] [address] RENAL PANEL,FASTINGon 2024 Albumin [Mass/Vol] 4.6 g/dL Normal 3.5-5.0 [facility] Comment on above: Performed By: #### A CBC, MG, URIC, RENF, IPTH #### Testing performed at [address] [address] Calcium [Mass/Vol] 10.4 mg/dL High 8.4-10.2 [facility] Comment on above: Performed By: #### A CBC, MG, URIC, RENF, IPTH #### Testing performed at [address] [address] Chloride [Moles/Vol] 103 mmol/L Normal 98-107 [facility] Comment on above: Result Comment: Sid ott note: Triglyceride levels of 600mg/dL or higher may positively bias chloride results by approximately 2.1 mmol Performed By: #### A CBC, MG, URIC, RENF, IPTH #### Testing performed at [address] [address] CO2 [Moles/Vol] 27 mmol/L Normal 22-30 [facility] Comment on above: Performed By: #### A CBC, MG, URIC, RENF, IPTH #### Testing performed at [address] [address] Creatinine [Mass/Vol] 1.70 mg/dL High 0.70-1.20 [facility]3] Comment on above: Performed By: #### A CBC, MG, URIC, RENF, IPTH #### Testing performed at [address] [address] GFR Information Average GFR for 70+ years old = 75. 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 Kidney failure, GFR = <15. The GFR estimate is not adjusted for extreme body surface area or acute process, nor has it been validated for women or ethnic groups other than and . Performed By: #### A CBC, MG, URIC, RENF, IPTH #### Testing performed at [address] [address] GFR/1.73 sq M.predicted MDRD (S/P/Bld) [Vol rate/Area] 41 mL/min/{1.73_m2} Normal [facility] Comment on above: Performed By: #### A CBC, MG, URIC, RENF, IPTH #### Testing performed at [address] [address] Glucose [Mass/Vol] 154 mg/dL High 70-100 [facility] Comment on above: Result Comment: NORMAL <100 mg/dL PREDIABETES 101-126 mg/dL DIABETES 126 mg/dL or higher Performed By: #### A CBC, MG, URIC, RENF, IPTH #### Testing performed at [address] [address] PHOSPHOROUS 4.2 MG/DL Normal 2.5-4.5 [facility] Comment on above: Performed By: #### A CBC, MG, URIC, RENF, IPTH #### Testing performed at [address] [address] Potassium [Moles/Vol] 4.8 mmol/L Normal 3.5-5.1 [facility]3] Comment on above: Performed By: #### A CBC, MG, URIC, RENF, IPTH #### Testing performed at [address] [address] Sodium [Moles/Vol] 138 mmol/L Normal 137-145 [facility] Comment on above: Performed By: #### A CBC, MG, URIC, RENF, IPTH #### Testing performed at [address] [address] Urea nitrogen [Mass/Vol] 27 mg/dL High 7-20 [facility] Comment on above: Performed By: #### A CBC, MG, URIC, RENF, IPTH #### Testing performed at [address] [address] URIC ACIDon 05-22-2025 Urate [Mass/Vol] 7.1 mg/dL High 2.4-7.0 [facility] Comment on above: Performed By: #### A CBC, MG, URIC, RENF, IPTH #### Testing performed at [address] [address] URINE MACROSCOPICon 05-22-20 25 Bilirubin Ql (U) Negative Normal NEGATIVE [facility] Comment on above: Performed By: #### U PAYAM, UNAR, UMAC, MCRAT #### Testing performed at [address] [address] Clarity (U) CLEAR Normal CLEAR [facility] Comment on above: Performed By: #### U PAYAM, UNAR, UMAC, MCRAT #### Testing performed at [address] [address] Color (U) YELLOW Normal YELLOW [facility] Comment on above: Performed By: #### U PAYAM, UNAR, UMAC, MCRAT #### Testing performed at [address] [address] Glucose Ql (U) Negative Normal NEGATIVE [facility] Comment on above: Performed By: #### U PAYAM, UNAR, UMAC, MCRAT #### Testing performed at [address] [address] pH (U) 6.0 [pH] Normal 5.0-7.0 [facility] Comment on above: Performed By: #### U PAYAM, UNAR, UMAC, MCRAT #### Testing performed at [address] [address] URINE HEMOGLOBIN Negative Normal NEGATIVE [facility] Comment on above: Performed By: #### U PAYAM, UNAR, UMAC, MCRAT #### Testing performed at [address] [address] URINE KETONE Negative Normal NEGATIVE [facility] Comment on above: Performed By: #### U PAYAM, UNAR, UMAC, MCRAT #### Testing performed at [address] [address] URINE LEUKOTEST Negative Normal NEGATIVE [facility] Comment on above: Performed By: #### U PAYAM, UNAR, UMAC, MCRAT #### Testing performed at [address] [address] URINE NITRATES Negative Normal NEGATIVE [facility] Comment on above: Performed By: #### U PAYAM, UNAR, UMAC, MCRAT #### Testing performed at [address] [address] URINE SPEC GRAVITY 1.015 Normal 1.010-1.025 [facility] Comment on above: Performed By: #### U PAYAM, UNAR, UMAC, MCRAT #### Testing performed at [address] [address] URINE TOTAL PROTEIN Negative Normal NEGATIVE [facility] Comment on above: Performed By: #### U PAYAM, UNAR, UMAC, MCRAT #### Testing performed at [address] [address] Urobilinogen Qn (U) 0.2 {Lisa'U}/dL Normal 0.2-1.0 [facility] Comment on above: Performed By: #### U PAYAM, UNAR, UMAC, MCRAT #### Testing performed at [address] [address] URINE MICROSCOPICon 05-22-20 25 BACTERIA 1+ Abnormal NEGATIVE [facility] Comment on above: Performed By: #### U PAYAM, UNAR, UMAC, MCRAT #### Testing performed at [address] [address] CASTS NONE Normal NONE [facility] Comment on above: Performed By: #### U PAYAM, UNAR, UMAC, MCRAT #### Testing performed at [address] [address] CRYSTAL NONE Normal NONE [facility] Comment on above: Performed By: #### U PAYAM, UNAR, UMAC, MCRAT #### Testing performed at [address] [address] Epithelial cells LM Ql (Urine sed) NONE Normal [facility] Comment on above: Performed By: #### U PAYAM, UNAR, UMAC, MCRAT #### Testing performed at [address] [address] Mucus Ql (Urine sed) Negative Normal NEGATIVE [facility] Comment on above: Performed By: #### U PAYAM, UNAR, UMAC, MCRAT #### Testing performed at [address] [address] URINE COMMENT CULTURE CRITERIA NOT MET, NO CULTURE PERFORMED. Normal [facility] Comment on above: Performed By: #### U PAYAM, UNAR, UMAC, MCRAT #### Testing performed at [address] [address] URINE RBC'S Negative Normal NEGATIVE [facility] Comment on above: Performed By: #### U PAYAM, UNAR, UMAC, MCRAT #### Testing performed at [address] [address] URINE WBC'S Negative Normal NEGATIVE [facility] Comment on above: Performed By: #### U PAYAM, UNAR, UMAC, MCRAT #### Testing performed at [address] [address] URINE SODIUM RANDOMon 2024 Sodium (U) [Moles/Vol] 93 mmol/L High 30-90 [facility] Comment on above: Performed By: #### A CBC, MG, URIC, RENF, IPTH #### Testing performed at [address] [address] Anion gap in Serum or Plasma Ordered By: Latonia Berry on 05-14-2025 Anion gap [Moles/Vol] 11 mmol/L - [facility] BUN/creatinine ratioOrdered By: Latonia Berry on 05-14-2025 Urea nitrogen/Creatinine [Mass ratio] 17.6 mg/mg 09-02 [facility] Basic Metabolic Profile (BMP )on 05-14-2025 BUN/CRE 17.6 RATIO Normal 09-02 [facility] Comment on above: Performed By: #### L 101.9900, L100.0500, L500.2500 ####[facility] [address] [place], [address] Calcium [Mass/Vol] 9.8 mg/dL Normal 7.6-11.0 [facility] Comment on above: Performed By: #### L 101.9900, L100.0500, L500.2500 ####[facility] [address] [place], [address] Chloride [Moles/Vol] 104 mmol/L Normal 98-108 [facility] Comment on above: Performed By: #### L 101.9900, L100.0500, L500.2500 ####[facility] [address] [place], [address] CO2 [Moles/Vol] 23.2 mmol/L Normal 21.0-32.0 [facility] Comment on above: Performed By: #### L 101.9900, L100.0500, L500.2500 ####[facility] [address] [place], [address] Creatinine [Mass/Vol] 1.45 mg/dL High 0.70-1.20 [facility] Comment on above: Performed By: #### L 101.9900, L100.0500, L500.2500 ####[facility] [address] [place], [address] GAP 11 Normal 5-15 [facility] Comment on above: Performed By: #### L 101.9900, L100.0500, L500.2500 ####[facility] [address] [place], [address] GFR/1.73 sq M.predicted among non-blacks MDRD (S/P/Bld) [Vol rate/Area] 48 mL/min/{1.73_m2} Low >60 [facility] Comment on above: Result Comment: mL/m in/1.73m2 CKD-EPI Creatinine Equation (2020) Performed By: #### L 101.9900, L100.0500, L500.2500 ####[facility] [address] [place], [address] Glucose [Mass/Vol] 204 mg/dL High 70-99 [facility] Comment on above: Performed By: #### L 101.9900, L100.0500, L500.2500 ####[facility] [address] [place], [address] Potassium [Moles/Vol] 4.3 mmol/L Normal 3.3-5.1 [facility] Comment on above: Performed By: #### L 101.9900, L100.0500, L500.2500 ####[facility] [address] [place], [address] Sodium [Moles/Vol] 138 mmol/L Normal 133-145 [facility] Comment on above: Performed By: #### L 101.9900, L100.0500, L500.2500 ####[facility] [address] [place], [address] Urea nitrogen [Mass/Vol] 26 mg/dL High 4-19 [facility] Comment on above: Performed By: #### L 101.9900, L100.0500, L500.2500 ####[facility] [address] [place], [address] CBC-Complete Blood Cnt No Di ffon 05-14-2025 Erythrocyte distribution width (RBC) [Ratio] 13.3 % Normal 11.6-14.6 [facility] Comment on above: Performed By: #### L 101.9900, L100.0500, L500.2500 ####[facility] [address] [place], [address] Hematocrit (Bld) [Volume fraction] 35.4 % Low 40-54 [facility] Comment on above: Performed By: #### L 101.9900, L100.0500, L500.2500 ####[facility] [address] [place], [address] Hemoglobin (Bld) [Mass/Vol] 12.3 g/dL Low 13.0-16.5 [facility] Comment on above: Performed By: #### L 101.9900, L100.0500, L500.2500 ####[facility] [address] [place], [address] MCH (RBC) [Entitic mass] 33.9 pg High 27.0-32.0 [facility] Comment on above: Performed By: #### L 101.9900, L100.0500, L500.2500 ####[facility] [address] [place], [address] MCHC (RBC) [Mass/Vol] 34.7 g/dL Normal 32-36 [facility] Comment on above: Performed By: #### L 101.9900, L100.0500, L500.2500 ####[facility] [address] [place], [address] MCV (RBC) [Entitic vol] 97.5 fL High 80-94 [facility] Comment on above: Performed By: #### L 101.9900, L100.0500, L500.2500 ####[facility] [address] [place], [address] Platelet mean volume (Bld) [Entitic vol] 11.6 fL Normal 6.2-12.0 [facility] Comment on above: Performed By: #### L 101.9900, L100.0500, L500.2500 ####[facility] [address] [place], [address] Platelets (Bld) [#/Vol] 208 10*3/uL Normal 150-450 [facility] Comment on above: Performed By: #### L 101.9900, L100.0500, L500.2500 ####[facility] [address] [place], [address] RBC (Bld) [#/Vol] 3.63 10*6/uL Low 4.6-6.2 [facility] Comment on above: Performed By: #### L 101.9900, L100.0500, L500.2500 ####[facility] [address] [place], [address] RDW SD 47.7 fl High 35.1-43.9 [facility] Comment on above: Performed By: #### L 101.9900, L100.0500, L500.2500 ####[facility] [address] [place], [address] WBC (Bld) [#/Vol] 6.5 10*3/uL Normal 4.4-11.0 [facility] Comment on above: Performed By: #### L 101.9900, L100.0500, L500.2500 ####[facility] [address] [place], [place], [address] Carbon dioxide, total [Moles /volume] in Central venous bloodOrdered By: Latonia Berry on 05-14-2025 CO2 [Moles/Vol] 23.2 mmol/L 21.0-32.0 [facility] Chloride assayOrdered By: Cathy Berry on 05-14-2025 Chloride [Moles/Vol] 104 mmol/L 98-108 [facility] Erythrocyte Sed Rateon 05-14 SED RATE 16 mm/hr Normal 0-20 [facility] Comment on above: Performed By: #### L 101.9900, L100.0500, L500.2500 ####[facility] [address] [place], [place], [id number] Erythrocyte distribution wid th ratioOrdered By: Latonia Berry on 05-14-2025 Erythrocyte distribution width (RBC) [Ratio] 13.3 % 11.6-14.6 [facility] Erythrocyte distribution wid th standard deviationOrdered By: Latonia Berry on 05-14-2025 Erythrocyte distribution width (RBC) [Ratio] 47.7 fl High 35.1-43.9 [facility] Erythrocyte sedimentation ra teOrdered By: Latonia Berry on 05-14-2025 ESR (Bld) [Velocity] 16 mm/h 0-20 [facility] Glomerular filtration rate ( GFR) estimation/1.73 sq m using serum, plasma, or whole bOrdered By: Latonia Berry on 05-14-2025 GFR/1.73 sq M.predicted among non-blacks MDRD (S/P/Bld) [Vol rate/Area] 48 mL/min/{1.73_m2} Low >60 [facility] Comment on above: mL/min/1.73m2 CKD-EP I Creatinine Equation (2020) Hematocrit Auto (Bld) [Volum e fraction]Ordered By: Latonia Berry on 05-14-2025 Hematocrit (Bld) [Volume fraction] 35.4 % Low 40-54 [facility] Hemoglobin measurementOrdere d By: Latonia Berry on 05-14-2025 Hemoglobin (Bld) [Mass/Vol] 12.3 g/dL Low 13.0-16.5 [facility] MCV (mean corpuscular volume ) determinationOrdered By: Latonia Berry on 05-14-2025 MCV (RBC) [Entitic vol] 97.5 fL High 80-94 [facility] Mean corpuscular hemoglobin (MCH) determinationOrdered By: Latonia Berry on 05-14-2025 MCH (RBC) [Entitic mass] 33.9 pg High 27.0-32.0 [facility] Mean corpuscular hemoglobin concentration (MCHC) determinationOrdered By: Latonia Berry on 05-14-2025 MCHC (RBC) [Mass/Vol] 34.7 g/dL 32-36 [facility] Mean platelet volume determi nationOrdered By: Latonia Berry on 05-14-2025 Platelet mean volume (Bld) [Entitic vol] 11.6 fL 6.2-12.0 [facility] Platelet countOrdered By: Cathy Berry on 05-14-2025 Platelets (Bld) [#/Vol] 208 10*3/uL 150-450 [facility] Potassium measurement (mass/ volume)Ordered By: Latonia Berry on 05-14-2025 Potassium (Unsp spec) [Mass/Vol] 4.3 mmol/L 3.3-5.1 [facility] RBC Auto (Bld) [#/Vol]Ordere d By: Latonia Berry on 05-14-2025 RBC (Bld) [#/Vol] 3.63 10*6/uL Low 4.6-6.2 [facility] Serum creatinine measurement (mass/volume)Ordered By: Latonia Berry on 05-14-2025 Creatinine [Mass/Vol] 1.45 mg/dL High 0.70-1.20 [facility] Serum glucose measurement (m ass/volume)Ordered By: Latonia Berry on 05-14-2025 Glucose [Mass/Vol] 204 mg/dL High 70-99 [facility] Serum or plasma calcium amadou urement (mass/volume)Ordered By: Latonia Berry on 05-14-2025 Calcium [Mass/Vol] 9.8 mg/dL 7.6-11.0 [facility] Serum or plasma urea nitroge n measurement (mass/volume)Ordered By: Latonia Berry on 05-14-2025 Urea nitrogen [Mass/Vol] 26 mg/dL High 4-19 [facility] Sodium levelOrdered By: Apollo Berry on 05-14-2025 Sodium [Moles/Vol] 138 mmol/L 133-145 [facility] White blood cell (WBC) count Ordered By: Latonia Berry on 05-14-2025 WBC (Bld) [#/Vol] 6.5 10*3/uL 4.4-11.0 [facility] Culture, Blood (WB)on 2024 CUB Blood cultures x2, from two different sites No growth in 5 days. Normal [facility] Comment on above: Performed By: #### M 200.1000 ####[facility] [address] [place], [address] Basic Metabolic Profile (BMP )on 04-20-2025 BUN Normal - [facility] Comment on above: Result Comment: Canc elled via OM: Order cancelled - Patient discharged Performed By: #### L 500.2500, L100.0100 ####[facility] [address] [place], [address] BUN/CRE Normal 10-20 [facility] Comment on above: Result Comment: Canc elled via OM: Order cancelled - Patient discharged Performed By: #### L 500.2500, L100.0100 ####[facility] [address] [place], [address] Calcium Normal 7.6-11.0 [facility] Comment on above: Result Comment: Canc elled via OM: Order cancelled - Patient discharged Performed By: #### L 500.2500, L100.0100 ####[facility] [address] [place], [address] CL Normal 98-108 [facility] Comment on above: Result Comment: Canc elled via OM: Order cancelled - Patient discharged Performed By: #### L 500.2500, L100.0100 ####[facility] [address] [place], [address] CO2 Normal 21.0-32.0 [facility] Comment on above: Result Comment: Canc elled via OM: Order cancelled - Patient discharged Performed By: #### L 500.2500, L100.0100 ####[facility] [address] [place], [address] CREAT,SERUM Normal 0.70-1.20 [facility] Comment on above: Result Comment: Canc elled via OM: Order cancelled - Patient discharged Performed By: #### L 500.2500, L100.0100 ####[facility] [address] [place], [address] eGFR Normal >60 [facility] Comment on above: Result Comment: Canc elled via OM: Order cancelled - Patient discharged Performed By: #### L 500.2500, L100.0100 ####[facility] [address] [place], [address] GAP Normal 5-15 [facility] Comment on above: Result Comment: Canc elled via OM: Order cancelled - Patient discharged Performed By: #### L 500.2500, L100.0100 ####[facility] [address] [place], [address] GLU Normal 70-99 [facility] Comment on above: Result Comment: Canc elled via OM: Order cancelled - Patient discharged Performed By: #### L 500.2500, L100.0100 ####[facility] [address] [place], [address] Potassium Normal 3.3-5.1 [facility] Comment on above: Result Comment: Canc elled via OM: Order cancelled - Patient discharged Performed By: #### L 500.2500, L100.0100 ####[facility] [address] [place], [address] Basic Metabolic Profile (BMP) Normal 133-145 [facility] Comment on above: Result Comment: Canc elled via OM: Order cancelled - Patient discharged Performed By: #### L 500.2500, L100.0100 ####[facility] [address] [place], [address] CBC W/Diff, Automatedon 06-0 7-2024 Absolute Neut Normal 2.0-7.7 [facility] Comment on above: Result Comment: Canc elled via OM: Order cancelled - Patient discharged Performed By: #### L 500.2500, L100.0100 ####[facility] [address] [place], [address] HCT Normal 40-54 [facility] Comment on above: Result Comment: Canc elled via OM: Order cancelled - Patient discharged Performed By: #### L 500.2500, L100.0100 ####[facility] [address] [place], [address] HGB Normal 13.0-16.5 [facility] Comment on above: Result Comment: Canc elled via OM: Order cancelled - Patient discharged Performed By: #### L 500.2500, L100.0100 ####[facility] [address] [place], [address] MCH Normal 27.0-32.0 [facility] Comment on above: Result Comment: Canc elled via OM: Order cancelled - Patient discharged Performed By: #### L 500.2500, L100.0100 ####[facility] [address] [place], [address] MCHC Normal 32-36 [facility] Comment on above: Result Comment: Canc elled via OM: Order cancelled - Patient discharged Performed By: #### L 500.2500, L100.0100 ####[facility] [address] [place], [address] MCV Normal 80-94 [facility] Comment on above: Result Comment: Canc elled via OM: Order cancelled - Patient discharged Performed By: #### L 500.2500, L100.0100 ####[facility] [address] [place], [address] NEUT% Normal 47-70 [facility] Comment on above: Result Comment: Canc elled via OM: Order cancelled - Patient discharged Performed By: #### L 500.2500, L100.0100 ####[facility] [address] [place], [address] PLT Normal 150-450 [facility] Comment on above: Result Comment: Canc elled via OM: Order cancelled - Patient discharged Performed By: #### L 500.2500, L100.0100 ####[facility] [address] [place], [address] RBC Normal 4.6-6.2 [facility] Comment on above: Result Comment: Canc elled via OM: Order cancelled - Patient discharged Performed By: #### L 500.2500, L100.0100 ####[facility] [address] [place], [address] RDW CV Normal 11.6-14.6 [facility] Comment on above: Result Comment: Canc elled via OM: Order cancelled - Patient discharged Performed By: #### L 500.2500, L100.0100 ####[facility] [address] [place], [address] RDW SD Normal 35.1-43.9 [facility] Comment on above: Result Comment: Canc elled via OM: Order cancelled - Patient discharged Performed By: #### L 500.2500, L100.0100 ####[facility] [address] [place], [address] WBC Normal 4.4-11.0 [facility] Comment on above: Result Comment: Canc elled via OM: Order cancelled - Patient discharged Performed By: #### L 500.2500, L100.0100 ####[facility] [address] [place], [address] Basic Metabolic Profile (BMP )on 04-19-2025 BUN Normal 4-19 [facility] Comment on above: Result Comment: Canc elled via OM: Order cancelled - Patient discharged Performed By: #### L 100.0100, L500.2500 ####[facility] [address] [place], [address] BUN/CRE Normal 10-20 [facility] Comment on above: Result Comment: Canc elled via OM: Order cancelled - Patient discharged Performed By: #### L 100.0100, L500.2500 ####[facility] [address] [place], [address] Calcium Normal 7.6-11.0 [facility] Comment on above: Result Comment: Canc elled via OM: Order cancelled - Patient discharged Performed By: #### L 100.0100, L500.2500 ####[facility] [address] [place], [address] CL Normal 98-108 [facility] Comment on above: Result Comment: Canc elled via OM: Order cancelled - Patient discharged Performed By: #### L 100.0100, L500.2500 ####[facility] [address] [place], [address] CO2 Normal 21.0-32.0 [facility] Comment on above: Result Comment: Canc elled via OM: Order cancelled - Patient discharged Performed By: #### L 100.0100, L500.2500 ####[facility] [address] [place], [address] CREAT,SERUM Normal 0.70-1.20 [facility] Comment on above: Result Comment: Canc elled via OM: Order cancelled - Patient discharged Performed By: #### L 100.0100, L500.2500 ####[facility] [address] [place], [address] eGFR Normal >60 [facility] Comment on above: Result Comment: Canc elled via OM: Order cancelled - Patient discharged Performed By: #### L 100.0100, L500.2500 ####[facility] [address] [place], [address] GAP Normal 5-15 [facility] Comment on above: Result Comment: Canc elled via OM: Order cancelled - Patient discharged Performed By: #### L 100.0100, L500.2500 ####[facility] [address] [place], [address] GLU Normal 70-99 [facility] Comment on above: Result Comment: Canc elled via OM: Order cancelled - Patient discharged Performed By: #### L 100.0100, L500.2500 ####[facility] [address] [place], [address] Potassium Normal 3.3-5.1 [facility] Comment on above: Result Comment: Canc elled via OM: Order cancelled - Patient discharged Performed By: #### L 100.0100, L500.2500 ####[facility] [address] [place], [address] Basic Metabolic Profile (BMP) Normal 133-145 [facility] Comment on above: Result Comment: Canc elled via OM: Order cancelled - Patient discharged Performed By: #### L 100.0100, L500.2500 ####[facility] [address] [place], [address] CBC W/Diff, Automatedon 06-0 6-2025 Absolute Neut Normal 2.0-7.7 [facility] Comment on above: Result Comment: Canc elled via OM: Order cancelled - Patient discharged Performed By: #### L 100.0100, L500.2500 ####[facility] [address] [place], [address] HCT Normal 40-54 [facility] Comment on above: Result Comment: Canc elled via OM: Order cancelled - Patient discharged Performed By: #### L 100.0100, L500.2500 ####[facility] [address] [place], [address] HGB Normal 13.0-16.5 [facility] Comment on above: Result Comment: Canc elled via OM: Order cancelled - Patient discharged Performed By: #### L 100.0100, L500.2500 ####[facility] [address] [place], [address] MCH Normal 27.0-32.0 [facility] Comment on above: Result Comment: Canc elled via OM: Order cancelled - Patient discharged Performed By: #### L 100.0100, L500.2500 ####[facility] [address] [place], [address] MCHC Normal 32-36 [facility] Comment on above: Result Comment: Canc elled via OM: Order cancelled - Patient discharged Performed By: #### L 100.0100, L500.2500 ####[facility] [address] [place], [address] MCV Normal 80-94 [facility] Comment on above: Result Comment: Canc elled via OM: Order cancelled - Patient discharged Performed By: #### L 100.0100, L500.2500 ####[facility] [address] [place], [address] NEUT% Normal 47-70 [facility] Comment on above: Result Comment: Canc elled via OM: Order cancelled - Patient discharged Performed By: #### L 100.0100, L500.2500 ####[facility] [address] [place], [address] PLT Normal 150-450 [facility] Comment on above: Result Comment: Canc elled via OM: Order cancelled - Patient discharged Performed By: #### L 100.0100, L500.2500 ####[facility] [address] [place], [address] RBC Normal 4.6-6.2 [facility] Comment on above: Result Comment: Canc elled via OM: Order cancelled - Patient discharged Performed By: #### L 100.0100, L500.2500 ####[facility] [address] [place], [address] RDW CV Normal 11.6-14.6 [facility] Comment on above: Result Comment: Canc elled via OM: Order cancelled - Patient discharged Performed By: #### L 100.0100, L500.2500 ####[facility] [address] [place], [address] RDW SD Normal 35.1-43.9 [facility] Comment on above: Result Comment: Canc elled via OM: Order cancelled - Patient discharged Performed By: #### L 100.0100, L500.2500 ####[facility] [address] [place], [address] WBC Normal 4.4-11.0 [facility] Comment on above: Result Comment: Canc elled via OM: Order cancelled - Patient discharged Performed By: #### L 100.0100, L500.2500 ####[facility] [address] [place], [address] Culture, Anaerobic Any Sourc alec 04-19-2025 CUAN List Antibiotics Las t 48 Hours? merrem, vanco, doxycycline No anaerobic bacteria isolated. Normal [facility] Comment on above: Performed By: #### M 100.3000, M100.4001, M100.2000 ####[facility] [address] [place], [address] Basic Metabolic Profile (BMP )on 04-18-2025 BUN Normal 4-19 [facility] Comment on above: Result Comment: Canc elled via OM: Order cancelled - Patient discharged Performed By: #### L 500.2500, L100.0100 ####[facility] [address] [place], [address] BUN/CRE Normal 10-20 [facility] Comment on above: Result Comment: Canc elled via OM: Order cancelled - Patient discharged Performed By: #### L 500.2500, L100.0100 ####[facility] [address] [place], [address] Calcium Normal 7.6-11.0 [facility] Comment on above: Result Comment: Canc elled via OM: Order cancelled - Patient discharged Performed By: #### L 500.2500, L100.0100 ####[facility] [address] [place], [address] CL Normal 98-108 [facility] Comment on above: Result Comment: Canc elled via OM: Order cancelled - Patient discharged Performed By: #### L 500.2500, L100.0100 ####[facility] [address] [place], [address] CO2 Normal 21.0-32.0 [facility] Comment on above: Result Comment: Canc elled via OM: Order cancelled - Patient discharged Performed By: #### L 500.2500, L100.0100 ####[facility] [address] [place], [address] CREAT,SERUM Normal 0.70-1.20 [facility] Comment on above: Result Comment: Canc elled via OM: Order cancelled - Patient discharged Performed By: #### L 500.2500, L100.0100 ####[facility] [address] [place], [address] eGFR Normal >60 [facility] Comment on above: Result Comment: Canc elled via OM: Order cancelled - Patient discharged Performed By: #### L 500.2500, L100.0100 ####[facility] [address] [place], [address] GAP Normal 5-15 [facility] Comment on above: Result Comment: Canc elled via OM: Order cancelled - Patient discharged Performed By: #### L 500.2500, L100.0100 ####[facility] [address] [place], [address] GLU Normal 70-99 [facility] Comment on above: Result Comment: Canc elled via OM: Order cancelled - Patient discharged Performed By: #### L 500.2500, L100.0100 ####[facility] [address] [place], [address] Potassium Normal 3.3-5.1 [facility] Comment on above: Result Comment: Canc elled via OM: Order cancelled - Patient discharged Performed By: #### L 500.2500, L100.0100 ####[facility] [address] [place], [address] Basic Metabolic Profile (BMP) Normal 133-145 [facility] Comment on above: Result Comment: Canc elled via OM: Order cancelled - Patient discharged Performed By: #### L 500.2500, L100.0100 ####[facility] [address] [place], [address] CBC W/Diff, Automatedon 06-0 5-2024 Absolute Neut Normal 2.0-7.7 [facility] Comment on above: Result Comment: Canc elled via OM: Order cancelled - Patient discharged Performed By: #### L 500.2500, L100.0100 ####[facility] [address] [place], [address] HCT Normal 40-54 [facility] Comment on above: Result Comment: Canc elled via OM: Order cancelled - Patient discharged Performed By: #### L 500.2500, L100.0100 ####[facility] [address] [place], [address] HGB Normal 13.0-16.5 [facility] Comment on above: Result Comment: Canc elled via OM: Order cancelled - Patient discharged Performed By: #### L 500.2500, L100.0100 ####[facility] [address] [place], [address] MCH Normal 27.0-32.0 [facility] Comment on above: Result Comment: Canc elled via OM: Order cancelled - Patient discharged Performed By: #### L 500.2500, L100.0100 ####[facility] [address] [place], [address] MCHC Normal 32-36 [facility] Comment on above: Result Comment: Canc elled via OM: Order cancelled - Patient discharged Performed By: #### L 500.2500, L100.0100 ####[facility] [address] [place], [address] MCV Normal 80-94 [facility] Comment on above: Result Comment: Canc elled via OM: Order cancelled - Patient discharged Performed By: #### L 500.2500, L100.0100 ####[facility] [address] [place], [address] NEUT% Normal 47-70 [facility] Comment on above: Result Comment: Canc elled via OM: Order cancelled - Patient discharged Performed By: #### L 500.2500, L100.0100 ####[facility] [address] [place], [address] PLT Normal 150-450 [facility] Comment on above: Result Comment: Canc elled via OM: Order cancelled - Patient discharged Performed By: #### L 500.2500, L100.0100 ####[facility] [address] [place], [address] RBC Normal 4.6-6.2 [facility] Comment on above: Result Comment: Canc elled via OM: Order cancelled - Patient discharged Performed By: #### L 500.2500, L100.0100 ####[facility] [address] [place], [address] RDW CV Normal 11.6-14.6 [facility] Comment on above: Result Comment: Canc elled via OM: Order cancelled - Patient discharged Performed By: #### L 500.2500, L100.0100 ####[facility] [address] [place], [address] RDW SD Normal 35.1-43.9 [facility] Comment on above: Result Comment: Canc elled via OM: Order cancelled - Patient discharged Performed By: #### L 500.2500, L100.0100 ####[facility] [address] [place], [address] WBC Normal 4.4-11.0 [facility] Comment on above: Result Comment: Canc elled via OM: Order cancelled - Patient discharged Performed By: #### L 500.2500, L100.0100 ####[facility] [address] [place], [address] Wound Cultureon 04-18-2025 WC Normal [facility] Comment on above: Performed By: #### M 100.3000, M100.4001, M100.2000 ####[facility] [address] [place], [address] Absolute lymphocyte countOrd ered By: Coco Pepe on 04-17-2025 Lymphocytes Auto (Unsp spec) [#/Vol] 1.18 10*3/uL 0.83-4.51 [facility] Absolute neutrophil countOrd ered By: Coco Pepe on 04-17-2025 Neutrophils (Bld) [#/Vol] 5.5 10*3/uL 2.0-7.7 [facility] Anion gap in Serum or Plasma Ordered By: Coco Pepe on 04-17-2025 Anion gap [Moles/Vol] 13 mmol/L 03-28 [facility] Automated lymphocyte count a s percentage of total leukocytesOrdered By: Coco Pepe on 04-17-2025 Lymphocytes/100 WBC Auto (Unsp spec) 15.0 % Low [facility] BUN/creatinine ratioOrdered By: Coco Pepe on 04-17-2025 Urea nitrogen/Creatinine [Mass ratio] 16.8 mg/mg 09-02 [facility] Basic Metabolic Profile (BMP )on 04-17-2025 BUN/CRE 16.8 RATIO Normal - [facility] Comment on above: Performed By: #### L 500.2500, L100.0100 ####[facility] [address] [place], [address] Calcium [Mass/Vol] 9.5 mg/dL Normal 7.6-11.0 [facility] Comment on above: Performed By: #### L 500.2500, L100.0100 ####[facility] [address] [place], [address] Chloride [Moles/Vol] 106 mmol/L Normal 98-108 [facility] Comment on above: Performed By: #### L 500.2500, L100.0100 ####[facility] [address] [place], [address] CO2 [Moles/Vol] 21.9 mmol/L Normal 21.0-32.0 [facility] Comment on above: Performed By: #### L 500.2500, L100.0100 ####[facility] [address] [place], [address] Creatinine [Mass/Vol] 1.19 mg/dL Normal 0.70-1.20 [facility] Comment on above: Performed By: #### L 500.2500, L100.0100 ####[facility] [address] [place], [address] ECRCL 53.44 ml/min Normal 50-250 [facility] Comment on above: Performed By: #### L 500.2500, L100.0100 ####[facility] [address] [place], [address] GAP 13 Normal 5-15 [facility] Comment on above: Performed By: #### L 500.2500, L100.0100 ####[facility] [address] [place], [address] GFR/1.73 sq M.predicted among non-blacks MDRD (S/P/Bld) [Vol rate/Area] 61 mL/min/{1.73_m2} Normal >60 [facility] Comment on above: Result Comment: mL/m in/1.73m2 CKD-EPI Creatinine Equation (2020) Performed By: #### L 500.2500, L100.0100 ####[facility] [address] [place], [address] Glucose [Mass/Vol] 171 mg/dL High 70-99 [facility] Comment on above: Performed By: #### L 500.2500, L100.0100 ####[facility] [address] [place], [address] Potassium [Moles/Vol] 4.4 mmol/L Normal 3.3-5.1 [facility] Comment on above: Performed By: #### L 500.2500, L100.0100 ####[facility] [address] [place], [address] Sodium [Moles/Vol] 140 mmol/L Normal 133-145 [facility] Comment on above: Performed By: #### L 500.2500, L100.0100 ####[facility] [address] [place], [address] Urea nitrogen [Mass/Vol] 20 mg/dL High 4-19 [facility] Comment on above: Performed By: #### L 500.2500, L100.0100 ####[facility] [address] [place], [address] Basophil percentageOrdered B y: Coco Pepe on 04-17-2025 Basophils/100 WBC (Bld) 0.5 % 0-1 [facility] Bedside Glucoseon 04-17-2025 FINGERSTICK GLU 174 mg/dL High 74-106 [facility] Comment on above: Result Comment: SEFERINO GEMENT OF PATIENT CARE PER NURSING PROTOCOL Performed By: #### L 501.080 ####[facility] [address] [place], [address] FINGERSTICK GLU 122 mg/dL High 74-106 [facility] Comment on above: Result Comment: SEFERINO GEMENT OF PATIENT CARE PER NURSING PROTOCOL Performed By: #### L 501.080 ####[facility] [address] [place], [address] CBC W/Diff, Automatedon - Absolute Lymph 1.18 X10 3/uL Normal 0.83-4.51 [facility] Comment on above: Performed By: #### L 500.2500, L100.0100 ####[facility] [address] [place], [address] Absolute Neut 5.5 X10 3/uL Normal 2.0-7.7 [facility] Comment on above: Performed By: #### L 500.2500, L100.0100 ####[facility] [address] [place], [address] Basophils/100 WBC (Bld) 0.5 % Normal 0-1 [facility] Comment on above: Performed By: #### L 500.2500, L100.0100 ####[facility] [address] [place], [address] Eosinophils/100 WBC (Bld) 4.8 % Normal 0-5 [facility] Comment on above: Performed By: #### L 500.2500, L100.0100 ####[facility] [address] [place], [address] Erythrocyte distribution width (RBC) [Ratio] 14.6 % Normal 11.6-14.6 [facility] Comment on above: Performed By: #### L 500.2500, L100.0100 ####[facility] [address] [place], [address] Hematocrit (Bld) [Volume fraction] 37.1 % Low 40-54 [facility] Comment on above: Performed By: #### L 500.2500, L100.0100 ####[facility] [address] [place], [address] Hemoglobin (Bld) [Mass/Vol] 12.6 g/dL Low 13.0-16.5 [facility] Comment on above: Performed By: #### L 500.2500, L100.0100 ####[facility] [address] [place], [address] IG% 0.500 Normal 0.0-0.9 [facility] Comment on above: Result Comment: IG% - Immature Granulocytes (promyelocytes, myelocytes andmetamyelocytes) > 1% indicates that a LEFT SHIFT is Present. Performed By: #### L 500.2500, L100.0100 ####[facility] [address] [place], [address] Lymphocytes/100 WBC (Bld) 15.0 % Low 19-41 [facility] Comment on above: Performed By: #### L 500.2500, L100.0100 ####[facility] [address] [place], [address] MCH (RBC) [Entitic mass] 33.9 pg High 27.0-32.0 [facility] Comment on above: Performed By: #### L 500.2500, L100.0100 ####[facility] [address] [place], [address] MCHC (RBC) [Mass/Vol] 34.0 g/dL Normal 32-36 [facility] Comment on above: Performed By: #### L 500.2500, L100.0100 ####[facility] [address] [place], [address] MCV (RBC) [Entitic vol] 99.7 fL High 80-94 [facility] Comment on above: Performed By: #### L 500.2500, L100.0100 ####[facility] [address] [place], [address] Monocytes/100 WBC (Bld) 8.9 % Normal 0-10 [facility] Comment on above: Performed By: #### L 500.2500, L100.0100 ####[facility] [address] [place], [address] Neutrophils/100 WBC (Bld) 70.3 % High 47-70 [facility] Comment on above: Performed By: #### L 500.2500, L100.0100 ####[facility] [address] [place], [address] Nucleated RBC (Bld) [#/Vol] 0 10*3/uL Normal 0-5 [facility] Comment on above: Performed By: #### L 500.2500, L100.0100 ####[facility] [address] [place], [address] Platelet mean volume (Bld) [Entitic vol] 10.4 fL Normal 6.2-12.0 [facility] Comment on above: Performed By: #### L 500.2500, L100.0100 ####[facility] [address] [place], [address] Platelets (Bld) [#/Vol] 207 10*3/uL Normal 150-450 [facility] Comment on above: Performed By: #### L 500.2500, L100.0100 ####[facility] [address] [place], [address] RBC (Bld) [#/Vol] 3.72 10*6/uL Low 4.6-6.2 [facility] Comment on above: Performed By: #### L 500.2500, L100.0100 ####[facility] [address] [place], [address] RDW SD 52.2 fl High 35.1-43.9 [facility] Comment on above: Performed By: #### L 500.2500, L100.0100 ####[facility] [address] [place], [address] WBC (Bld) [#/Vol] 7.9 10*3/uL Normal 4.4-11.0 [facility] Comment on above: Performed By: #### L 500.2500, L100.0100 ####[facility] [address] [place], [address] Carbon dioxide, total [Moles /volume] in Central venous bloodOrdered By: Coco Pepe on 04-17-2025 CO2 [Moles/Vol] 21.9 mmol/L 21.0-32.0 [facility] Chloride assayOrdered By: Filemon Pepe on 04-17-2025 Chloride [Moles/Vol] 106 mmol/L 98-108 [facility] Eosinophil percentageOrdered By: Coco Pepe on 04-17-2025 Eosinophils/100 WBC (Bld) 4.8 % 0-5 [facility] Erythrocyte distribution wid th ratioOrdered By: Coco Pepe on 04-17-2025 Erythrocyte distribution width (RBC) [Ratio] 14.6 % 11.6-14.6 [facility] Erythrocyte distribution wid th standard deviationOrdered By: Coco Pepe on 04-17-2025 Erythrocyte distribution width (RBC) [Ratio] 52.2 fl High 35.1-43.9 [facility] Glomerular filtration rate ( GFR) estimation/1.73 sq m using serum, plasma, or whole bOrdered By: Coco Pepe on 04-17-2025 GFR/1.73 sq M.predicted among non-blacks MDRD (S/P/Bld) [Vol rate/Area] 61 mL/min/{1.73_m2} >60 [facility] Comment on above: mL/min/1.73m2 CKD-EP I Creatinine Equation (2020) [facility] deOrdered By: Coco Pepe on 04-17-2025 Glucose [Mass/Vol] 174 mg/dL High 74-106 [facility] Comment on above: MANAGEMENT OF PATIEN T CARE PER NURSING PROTOCOL Hematocrit Auto (Bld) [Volum e fraction]Ordered By: Coco Pepe on 04-17-2025 Hematocrit (Bld) [Volume fraction] 37.1 % Low 40-54 [facility] Hemoglobin measurementOrdere d By: Coco Pepe on 04-17-2025 Hemoglobin (Bld) [Mass/Vol] 12.6 g/dL Low 13.0-16.5 [facility] Immature granulocytes/100 WB C Auto (Bld)Ordered By: Coco Pepe on 04-17-2025 Immature granulocytes/100 WBC (Bld) 0.500 % 0.0-0.9 [facility] Comment on above: IG% - Immature Granu locytes (promyelocytes, myelocytes and metamyelocytes) > 1% indicates that a LEFT SHIFT is Present. MCV (mean corpuscular volume ) determinationOrdered By: Coco Pepe on 04-17-2025 MCV (RBC) [Entitic vol] 99.7 fL High 80-94 [facility] Mean corpuscular hemoglobin (MCH) determinationOrdered By: Coco Pepe on 04-17-2025 MCH (RBC) [Entitic mass] 33.9 pg High 27.0-32.0 [facility] Mean corpuscular hemoglobin concentration (MCHC) determinationOrdered By: Coco Pepe on 04-17-2025 MCHC (RBC) [Mass/Vol] 34.0 g/dL 32-36 [facility] Mean platelet volume determi nationOrdered By: Coco Pepe on 04-17-2025 Platelet mean volume (Bld) [Entitic vol] 10.4 fL 6.2-12.0 [facility] Monocyte percentageOrdered B y: Coco Pepe on 04-17-2025 Monocytes/100 WBC (Bld) 8.9 % 0-10 [facility] Neutrophil percentageOrdered By: Coco Pepe on 04-17-2025 Neutrophils/100 WBC (Bld) 70.3 % High 47-70 [facility] Nucleated red blood cell per centageOrdered By: Coco Pepe on 04-17-2025 Nucleated RBC/100 WBC (Bld) [Ratio] 0 % 0-5 [facility] Platelet countOrdered By: Filemon Pepe on 04-17-2025 Platelets (Bld) [#/Vol] 207 10*3/uL 150-450 [facility] Potassium measurement (mass/ volume)Ordered By: Coco Pepe on 04-17-2025 Potassium (Unsp spec) [Mass/Vol] 4.4 mmol/L 3.3-5.1 [facility] RBC Auto (Bld) [#/Vol]Ordere d By: Coco Pepe on 04-17-2025 RBC (Bld) [#/Vol] 3.72 10*6/uL Low 4.6-6.2 [facility] Serum creatinine measurement (mass/volume)Ordered By: Coco Pepe on 04-17-2025 Creatinine [Mass/Vol] 1.19 mg/dL 0.70-1.20 [facility] Serum glucose measurement (m ass/volume)Ordered By: Coco Pepe on 04-17-2025 Glucose [Mass/Vol] 171 mg/dL High 70-99 [facility] Serum or plasma calcium amadou urement (mass/volume)Ordered By: Coco Pepe on 04-17-2025 Calcium [Mass/Vol] 9.5 mg/dL 7.6-11.0 [facility] Serum or plasma urea nitroge n measurement (mass/volume)Ordered By: Coco Pepe on 04-17-2025 Urea nitrogen [Mass/Vol] 20 mg/dL High 4-19 [facility] Sodium levelOrdered By: Kit Pepe on 04-17-2025 Sodium [Moles/Vol] 140 mmol/L 133-145 [facility] Trough vancomycin levelOrder ed By: Latonia Berry on 04-17-2025 Vancomycin trough [Mass/Vol] 12.9 ug/mL 5.0-15.0 [facility] Comment on above: Recommended goal [...] therapy recommended for serious lifethreatening infections include:- Sedraiircy-Kavwxsmjabmv-Nwlikzwgp (Ventilator/Healtcare Associated)-Sepsis PLEASE CONTACT PHARMACY SERVICES (#1007) FOR INTERPRETATIONOF RESULTS. Vancomycin, Trough Levelon 0 04-17-2025 VANCO, TROUGH 12.9 ug/mL Normal 5.0-15.0 [facility] Comment on above: Order Comment: Comme nts: DRAW 30 MIN PRIOR TO [id number] Result Comment: Harpal mmended goal trough ranges [...] therapy recommended for serious lifethreatening infections include:- Cfxwrgvwca-Nszlqatyursq-Gkamggouo (Ventilator/Healtcare Associated)-SepsisPLEASE CONTACT PHARMACY SERVICES (#1170) FOR INTERPRETATIONOF RESULTS. Performed By: #### L 501.8820 ####[facility] [address] [place], [address] White blood cell (WBC) count Ordered By: Coco Pepe on 04-17-2025 WBC (Bld) [#/Vol] 7.9 10*3/uL 4.4-11.0 [facility] Basic Metabolic Profile (BMP )on 04-16-2025 BUN/CRE 18.4 RATIO Normal 10-20 [facility] Comment on above: Performed By: #### L 100.0100, L500.2500, L501.2300, L501.5200, L501.9985 ####[facility] [address] [place], [address] Calcium [Mass/Vol] 9.1 mg/dL Normal 7.6-11.0 [facility] Comment on above: Performed By: #### L 100.0100, L500.2500, L501.2300, L501.5200, L501.9985 ####[facility] [address] [place], [address] Chloride [Moles/Vol] 107 mmol/L Normal 98-108 [facility] Comment on above: Performed By: #### L 100.0100, L500.2500, L501.2300, L501.5200, L501.9985 ####[facility] [address] [place], [address] CO2 [Moles/Vol] 23.9 mmol/L Normal 21.0-32.0 [facility] Comment on above: Performed By: #### L 100.0100, L500.2500, L501.2300, L501.5200, L501.9985 ####[facility] [address] [place], [address] Creatinine [Mass/Vol] 1.28 mg/dL High 0.70-1.20 [facility] Comment on above: Performed By: #### L 100.0100, L500.2500, L501.2300, L501.5200, L501.9985 ####[facility] [address] [place], [address] ECRCL 49.68 ml/min Low 50-250 [facility] Comment on above: Performed By: #### L 100.0100, L500.2500, L501.2300, L501.5200, L501.9985 ####[facility] [address] [place], [address] GAP 9 Normal 5-15 [facility] Comment on above: Performed By: #### L 100.0100, L500.2500, L501.2300, L501.5200, L501.9985 ####[facility] [address] [place], [address] GFR/1.73 sq M.predicted among non-blacks MDRD (S/P/Bld) [Vol rate/Area] 56 mL/min/{1.73_m2} Low >60 [facility] Comment on above: Result Comment: mL/m in/1.73m2 CKD-EPI Creatinine Equation (2020) Performed By: #### L 100.0100, L500.2500, L501.2300, L501.5200, L501.9985 ####[facility] [address] [place], [address] Glucose [Mass/Vol] 183 mg/dL High 70-99 [facility] Comment on above: Performed By: #### L 100.0100, L500.2500, L501.2300, L501.5200, L501.9985 ####[facility] [address] [place], [address] Potassium [Moles/Vol] 3.7 mmol/L Normal 3.3-5.1 [facility] Comment on above: Performed By: #### L 100.0100, L500.2500, L501.2300, L501.5200, L501.9985 ####[facility] [address] [place], [address] Sodium [Moles/Vol] 140 mmol/L Normal 133-145 [facility] Comment on above: Performed By: #### L 100.0100, L500.2500, L501.2300, L501.5200, L501.9985 ####[facility] [address] [place], [address] Urea nitrogen [Mass/Vol] 24 mg/dL High 4-19 [facility] Comment on above: Performed By: #### L 100.0100, L500.2500, L501.2300, L501.5200, L501.9985 ####[facility] [address] [place], [address] Bedside Glucoseon 04-16-2025 FINGERSTICK GLU 161 mg/dL High 74-106 [facility] Comment on above: Result Comment: SEFERINO GEMENT OF PATIENT CARE PER NURSING PROTOCOL Performed By: #### L 501.080 ####[facility] [address] [place], [address] FINGERSTICK GLU 181 mg/dL High 74-106 [facility] Comment on above: Result Comment: SEFERINO GEMENT OF PATIENT CARE PER NURSING PROTOCOL Performed By: #### L 501.080 ####[facility] [address] [place], [address] FINGERSTICK GLU 166 mg/dL High 74-106 [facility] Comment on above: Result Comment: SEFERINO GEMENT OF PATIENT CARE PER NURSING PROTOCOL Performed By: #### L 501.080 ####[facility] [address] [place], [address] FINGERSTICK GLU 159 mg/dL High 74-106 [facility] Comment on above: Result Comment: SEFERINO COLON OF PATIENT CARE PER NURSING PROTOCOL Performed By: #### L 501.080 ####[facility] [address] [place], [address] CBC W/Diff, Automatedon 06-0 3-2024 Absolute Lymph 1.34 X10 3/uL Normal 0.83-4.51 [facility] Comment on above: Performed By: #### L 100.0100, L500.2500, L501.2300, L501.5200, L501.9985 ####[facility] [address] [place], [address] Absolute Neut 2.5 X10 3/uL Normal 2.0-7.7 [facility] Comment on above: Performed By: #### L 100.0100, L500.2500, L501.2300, L501.5200, L501.9985 ####[facility] [address] [place], [address] Basophils/100 WBC (Bld) 0.9 % Normal 0-1 [facility] Comment on above: Performed By: #### L 100.0100, L500.2500, L501.2300, L501.5200, L501.9985 ####[facility] [address] [place], [address] Eosinophils/100 WBC (Bld) 5.6 % High 0-5 [facility] Comment on above: Performed By: #### L 100.0100, L500.2500, L501.2300, L501.5200, L501.9985 ####[facility] [address] [place], [address] Erythrocyte distribution width (RBC) [Ratio] 14.5 % Normal 11.6-14.6 [facility] Comment on above: Performed By: #### L 100.0100, L500.2500, L501.2300, L501.5200, L501.9985 ####[facility] [address] [place], [address] Hematocrit (Bld) [Volume fraction] 29.2 % Low 40-54 [facility] Comment on above: Performed By: #### L 100.0100, L500.2500, L501.2300, L501.5200, L501.9985 ####[facility] [address] [place], [address] Hemoglobin (Bld) [Mass/Vol] 10.2 g/dL Low 13.0-16.5 [facility] Comment on above: Performed By: #### L 100.0100, L500.2500, L501.2300, L501.5200, L501.9985 ####[facility] [address] [place], [address] IG% 0.200 Normal 0.0-0.9 [facility] Comment on above: Result Comment: IG% - Immature Granulocytes (promyelocytes, myelocytes andmetamyelocytes) > 1% indicates that a LEFT SHIFT is Present. Performed By: #### L 100.0100, L500.2500, L501.2300, L501.5200, L501.9985 ####[facility] [address] [place], [address] Lymphocytes/100 WBC (Bld) 28.7 % Normal 19-41 [facility] Comment on above: Performed By: #### L 100.0100, L500.2500, L501.2300, L501.5200, L501.9985 ####[facility] [address] [place], [address] MCH (RBC) [Entitic mass] 35.2 pg High 27.0-32.0 [facility] Comment on above: Performed By: #### L 100.0100, L500.2500, L501.2300, L501.5200, L501.9985 ####[facility] [address] [place], [address] MCHC (RBC) [Mass/Vol] 34.9 g/dL Normal 32-36 [facility] Comment on above: Performed By: #### L 100.0100, L500.2500, L501.2300, L501.5200, L501.9985 ####[facility] [address] [place], [address] MCV (RBC) [Entitic vol] 100.7 fL High 80-94 [facility] Comment on above: Performed By: #### L 100.0100, L500.2500, L501.2300, L501.5200, L501.9985 ####[facility] [address] [place], [address] Monocytes/100 WBC (Bld) 12.2 % High 0-10 [facility] Comment on above: Performed By: #### L 100.0100, L500.2500, L501.2300, L501.5200, L501.9985 ####[facility] [address] [place], [address] Neutrophils/100 WBC (Bld) 52.4 % Normal 47-70 [facility] Comment on above: Performed By: #### L 100.0100, L500.2500, L501.2300, L501.5200, L501.9985 ####[facility] [address] [place], [address] Nucleated RBC (Bld) [#/Vol] 0 10*3/uL Normal 0-5 [facility] Comment on above: Performed By: #### L 100.0100, L500.2500, L501.2300, L501.5200, L501.9985 ####[facility] [address] [place], [address] Platelet mean volume (Bld) [Entitic vol] 10.8 fL Normal 6.2-12.0 [facility] Comment on above: Performed By: #### L 100.0100, L500.2500, L501.2300, L501.5200, L501.9985 ####[facility] [address] [place], [address] Platelets (Bld) [#/Vol] 174 10*3/uL Normal 150-450 [facility] Comment on above: Performed By: #### L 100.0100, L500.2500, L501.2300, L501.5200, L501.9985 ####[facility] [address] [place], [address] RBC (Bld) [#/Vol] 2.90 10*6/uL Low 4.6-6.2 [facility] Comment on above: Performed By: #### L 100.0100, L500.2500, L501.2300, L501.5200, L501.9985 ####[facility] [address] [place], [address] RDW SD 52.0 fl High 35.1-43.9 [facility] Comment on above: Performed By: #### L 100.0100, L500.2500, L501.2300, L501.5200, L501.9985 ####[facility] [address] [place], [address] WBC (Bld) [#/Vol] 4.7 10*3/uL Normal 4.4-11.0 [facility] Comment on above: Performed By: #### L 100.0100, L500.2500, L501.2300, L501.5200, L501.9985 ####[facility] [address] [place], [address] Consultation - Infectious Dx on 04-16-2025 Consultation - Infectious Dx Normal [facility] Gram Stainon 04-16-2025 GS List Antibiotics [place] 48 Hours? merrem, vanco, doxycycline Gram Stain Rare Gram negative rods Rare Gram positive cocci No cells seen Normal [facility] Comment on above: Performed By: #### M 100.3000, M100.4001, M100.2000 ####[facility] [address] [place], [address] Hemoglobin A1con 04-16-2025 HbA1c (Bld) [Mass fraction] 7.0 % High <=5.6 [facility] Comment on above: Result Comment: Norm al < 5.7 % Prediabetic 5.7 - 6.4 % Diabetic >or= 6.5 % Please note range changes. Performed By: #### L 100.0100, L500.2500, L501.2300, L501.5200, L501.9985 ####[facility] [address] [place], [place], [address] Hemoglobin A1c percentageOrd ered By: Coco Pepe on 04-16-2025 HbA1c (Bld) [Mass fraction] 7.0 % High <5.7 [facility] Comment on above: Normal < 5.7 % Predi abetic 5.7 - 6.4 % Diabetic >or= 6.5 % Please note range changes. Magnesiumon 04-16-2025 Magnesium [Mass/Vol] 1.9 mg/dL Normal 1.5-2.2 [facility] Comment on above: Performed By: #### L 100.0100, L500.2500, L501.2300, L501.5200, L501.9985 ####[facility] [address] [place], [place], [address] Magnesium measurement (mass/ volume)Ordered By: Coco Pepe on 04-16-2025 Magnesium (Unsp spec) [Mass/Vol] 1.9 mg/dL 1.5-2.2 [facility] Phosphoruson 04-16-2025 Phosphate [Mass/Vol] 3.0 mg/dL Normal 2.7-4.5 [facility] Comment on above: Performed By: #### L 100.0100, L500.2500, L501.2300, L501.5200, L501.9985 ####[facility] [address] [place], [address] Absolute lymphocyte countOrd ered By: Edgar Gudino on 04-15-2025 Lymphocytes Auto (Unsp spec) [#/Vol] 1.28 10*3/uL 0.83-4.51 [facility] Absolute neutrophil countOrd ered By: Edgar trinoKerri on 04-15-2025 Neutrophils (Bld) [#/Vol] 3.5 10*3/uL 2.0-7.7 [facility] Anaerobic cultureOrdered By: Coco Pepe on 04-15-2025 Bacteria identified Anaer cx Nom (Unsp spec) No anaerobic bacteria isolated. [facility] Anion gap in Serum or Plasma Ordered By: Edgar Jaciel on 04-15-2025 Anion gap [Moles/Vol] 12 mmol/L 5-15 [facility] Automated lymphocyte count a s percentage of total leukocytesOrdered By: Edgarcony Gudino on 04-15-2025 Lymphocytes/100 WBC Auto (Unsp spec) 21.9 % 19-41 [facility] BUN/creatinine ratioOrdered By: Edgar JasperKerri on 04-15-2025 Urea nitrogen/Creatinine [Mass ratio] 19.1 mg/mg 10-20 [facility] Basic Metabolic Profile (BMP )on 04-15-2025 BUN/CRE 19.1 RATIO Normal 10-20 [facility] Comment on above: Performed By: #### L 500.2500, L100.0100, L503.6005, L501.6710, L101.9900 ####[facility] [address] [place], [address] Calcium [Mass/Vol] 9.4 mg/dL Normal 7.6-11.0 [facility] Comment on above: Performed By: #### L 500.2500, L100.0100, L503.6005, L501.6710, L101.9900 ####[facility] [address] [place], [address] Chloride [Moles/Vol] 103 mmol/L Normal 98-108 [facility] Comment on above: Performed By: #### L 500.2500, L100.0100, L503.6005, L501.6710, L101.9900 ####[facility] [address] [place], [address] CO2 [Moles/Vol] 24.3 mmol/L Normal 21.0-32.0 [facility] Comment on above: Performed By: #### L 500.2500, L100.0100, L503.6005, L501.6710, L101.9900 ####[facility] [address] [place], [address] Creatinine [Mass/Vol] 1.38 mg/dL High 0.70-1.20 [facility] Comment on above: Performed By: #### L 500.2500, L100.0100, L503.6005, L501.6710, L101.9900 ####[facility] [address] [place], [address] ECRCL 46.08 ml/min Low 50-250 [facility] Comment on above: Performed By: #### L 500.2500, L100.0100, L503.6005, L501.6710, L101.9900 ####[facility] [address] [place], [address] GAP 12 Normal 5-15 [facility] Comment on above: Performed By: #### L 500.2500, L100.0100, L503.6005, L501.6710, L101.9900 ####[facility] [address] [place], [address] GFR/1.73 sq M.predicted among non-blacks MDRD (S/P/Bld) [Vol rate/Area] 51 mL/min/{1.73_m2} Low >60 [facility] Comment on above: Result Comment: mL/m in/1.73m2 CKD-EPI Creatinine Equation (2020) Performed By: #### L 500.2500, L100.0100, L503.6005, L501.6710, L101.9900 ####[facility] [address] [place], [address] Glucose [Mass/Vol] 183 mg/dL High 70-99 [facility] Comment on above: Performed By: #### L 500.2500, L100.0100, L503.6005, L501.6710, L101.9900 ####[facility] [address] [place], [address] Potassium [Moles/Vol] 3.9 mmol/L Normal 3.3-5.1 [facility] Comment on above: Performed By: #### L 500.2500, L100.0100, L503.6005, L501.6710, L101.9900 ####[facility] [address] [place], [address] Sodium [Moles/Vol] 139 mmol/L Normal 133-145 [facility] Comment on above: Performed By: #### L 500.2500, L100.0100, L503.6005, L501.6710, L101.9900 ####[facility] [address] [place], [address] Urea nitrogen [Mass/Vol] 26 mg/dL High 4-19 [facility] Comment on above: Performed By: #### L 500.2500, L100.0100, L503.6005, L501.6710, L101.9900 ####[facility] [address] [place], [address] Basophil percentageOrdered B y: Edgar Shahab on 04-15-2025 Basophils/100 WBC (Bld) 0.9 % 0-1 [facility] Bedside Glucoseon 04-15-2025 FINGERSTICK GLU 117 mg/dL High 74-106 [facility] Comment on above: Result Comment: SEFERINO COLON OF PATIENT CARE PER NURSING PROTOCOL Performed By: #### L 501.080 ####[facility] [address] [place], [address] Blood cultureOrdered By: Pj cony Gudino on 04-15-2025 Bacteria identified Cx Nom (Bld) No growth in 5 days. [facility] Bacteria identified Cx Nom (Bld) No growth in 5 days. [facility] CBC W/Diff, Automatedon Absolute Lymph 1.28 X10 3/uL Normal 0.83-4.51 [facility] Comment on above: Performed By: #### L 500.2500, L100.0100, L503.6005, L501.6710, L101.9900 ####[facility] [address] [place], [address] Absolute Neut 3.5 X10 3/uL Normal 2.0-7.7 [facility] Comment on above: Performed By: #### L 500.2500, L100.0100, L503.6005, L501.6710, L101.9900 ####[facility] [address] [place], [address] Basophils/100 WBC (Bld) 0.9 % Normal 0-1 [facility] Comment on above: Performed By: #### L 500.2500, L100.0100, L503.6005, L501.6710, L101.9900 ####[facility] [address] [place], [address] Eosinophils/100 WBC (Bld) 5.6 % High 0-5 [facility] Comment on above: Performed By: #### L 500.2500, L100.0100, L503.6005, L501.6710, L101.9900 ####[facility] [address] [place], [address] Erythrocyte distribution width (RBC) [Ratio] 14.3 % Normal 11.6-14.6 [facility] Comment on above: Performed By: #### L 500.2500, L100.0100, L503.6005, L501.6710, L101.9900 ####[facility] [address] [place], [address] Hematocrit (Bld) [Volume fraction] 32.5 % Low 40-54 [facility] Comment on above: Performed By: #### L 500.2500, L100.0100, L503.6005, L501.6710, L101.9900 ####[facility] [address] [place], [address] Hemoglobin (Bld) [Mass/Vol] 11.4 g/dL Low 13.0-16.5 [facility] Comment on above: Performed By: #### L 500.2500, L100.0100, L503.6005, L501.6710, L101.9900 ####[facility] [address] [place], [address] IG% 0.300 Normal 0.0-0.9 [facility] Comment on above: Result Comment: IG% - Immature Granulocytes (promyelocytes, myelocytes andmetamyelocytes) > 1% indicates that a LEFT SHIFT is Present. Performed By: #### L 500.2500, L100.0100, L503.6005, L501.6710, L101.9900 ####[facility] [address] [place], [address] Lymphocytes/100 WBC (Bld) 21.9 % Normal 19-41 [facility] Comment on above: Performed By: #### L 500.2500, L100.0100, L503.6005, L501.6710, L101.9900 ####[facility] [address] [place], [address] MCH (RBC) [Entitic mass] 35.4 pg High 27.0-32.0 [facility] Comment on above: Performed By: #### L 500.2500, L100.0100, L503.6005, L501.6710, L101.9900 ####[facility] [address] [place], [address] MCHC (RBC) [Mass/Vol] 35.1 g/dL Normal 32-36 [facility] Comment on above: Performed By: #### L 500.2500, L100.0100, L503.6005, L501.6710, L101.9900 ####[facility] [address] [place], [address] MCV (RBC) [Entitic vol] 100.9 fL High 80-94 [facility] Comment on above: Performed By: #### L 500.2500, L100.0100, L503.6005, L501.6710, L101.9900 ####[facility] [address] [place], [address] Monocytes/100 WBC (Bld) 12.1 % High 0-10 [facility] Comment on above: Performed By: #### L 500.2500, L100.0100, L503.6005, L501.6710, L101.9900 ####[facility] [address] [place], [address] Neutrophils/100 WBC (Bld) 59.2 % Normal 47-70 [facility] Comment on above: Performed By: #### L 500.2500, L100.0100, L503.6005, L501.6710, L101.9900 ####[facility] [address] [place], [address] Nucleated RBC (Bld) [#/Vol] 0 10*3/uL Normal 0-5 [facility] Comment on above: Performed By: #### L 500.2500, L100.0100, L503.6005, L501.6710, L101.9900 ####[facility] [address] [place], [address] Platelet mean volume (Bld) [Entitic vol] 10.8 fL Normal 6.2-12.0 [facility] Comment on above: Performed By: #### L 500.2500, L100.0100, L503.6005, L501.6710, L101.9900 ####[facility] [address] [place], [address] Platelets (Bld) [#/Vol] 200 10*3/uL Normal 150-450 [facility] Comment on above: Performed By: #### L 500.2500, L100.0100, L503.6005, L501.6710, L101.9900 ####[facility] [address] [place], [address] RBC (Bld) [#/Vol] 3.22 10*6/uL Low 4.6-6.2 [facility] Comment on above: Performed By: #### L 500.2500, L100.0100, L503.6005, L501.6710, L101.9900 ####[facility] [address] [place], [address] RDW SD 51.8 fl High 35.1-43.9 [facility] Comment on above: Performed By: #### L 500.2500, L100.0100, L503.6005, L501.6710, L101.9900 ####[facility] [address] [place], [address] WBC (Bld) [#/Vol] 5.9 10*3/uL Normal 4.4-11.0 [facility] Comment on above: Performed By: #### L 500.2500, L100.0100, L503.6005, L501.6710, L101.9900 ####[facility] [address] [place], [address] CRPon 04-15-2025 C-REACTIVE PROT 30.60 mg/L High 0.0-3.0 [facility] Comment on above: Performed By: #### L 501.6710, L101.9900 ####[facility] [address] [place], [address] C-REACTIVE PROT 30.20 mg/L High 0.0-3.0 [facility] Comment on above: Performed By: #### L 500.2500, L100.0100, L503.6005, L501.6710, L101.9900 ####[facility] [address] [place], [address] Carbon dioxide, total [Moles /volume] in Central venous bloodOrdered By: Edgar Gudino on 04-15-2025 CO2 [Moles/Vol] 24.3 mmol/L 21.0-32.0 [facility] Chloride assayOrdered By: Candelario Gudino on 04-15-2025 Chloride [Moles/Vol] 103 mmol/L 98-108 [facility] Emergency Department Summary on 04-15-2025 Emergency Department Summary Normal [facility] Eosinophil percentageOrdered By: Edgar Gudino on 04-15-2025 Eosinophils/100 WBC (Bld) 5.6 % High 0-5 [facility] Erythrocyte Sed Rateon 04-15 SED RATE 10 mm/hr Normal 0-20 [facility] Comment on above: Performed By: #### L 501.6710, L101.9900 ####[facility] [address] [place], [address] SED RATE 21 mm/hr High 0-20 [facility] Comment on above: Performed By: #### L 500.2500, L100.0100, L503.6005, L501.6710, L101.9900 ####[facility] [address] [place], [address] Erythrocyte distribution wid th ratioOrdered By: Edgar Gudino on 04-15-2025 Erythrocyte distribution width (RBC) [Ratio] 14.3 % 11.6-14.6 [facility] Erythrocyte distribution wid th standard deviationOrdered By: Edgar Manning on 04-15-2025 Erythrocyte distribution width (RBC) [Ratio] 51.8 fl High 35.1-43.9 [facility] Erythrocyte sedimentation ra teOrdered By: Coco Pepe on 04-15-2025 ESR (Bld) [Velocity] 10 mm/h 0-20 [facility] Erythrocyte sedimentation ra teOrdered By: Edgar Gudino on 04-15-2025 ESR (Bld) [Velocity] 21 mm/h High 0-20 [facility] Foot min 3 Viewson 5 Foot min 3 Views Normal [facility] Glomerular filtration rate ( GFR) estimation/1.73 sq m using serum, plasma, or whole bOrdered By: Edgar Gudino on 04-15-2025 GFR/1.73 sq M.predicted among non-blacks MDRD (S/P/Bld) [Vol rate/Area] 51 mL/min/{1.73_m2} Low >60 [facility] Comment on above: mL/min/1.73m2 CKD-EP I Creatinine Equation (2020) Gram stainOrdered By: Coco Pepe on 04-15-2025 Microscopic observation Gram stain Nom (Unsp spec) [facility] H AND P Exam - Hospitaliston 04-15-2025 H&P Exam - Hospitalist Normal [facility] Hematocrit Auto (Bld) [Volum e fraction]Ordered By: Edgar Gudino on 04-15-2025 Hematocrit (Bld) [Volume fraction] 32.5 % Low 40-54 [facility] Hemoglobin measurementOrdere d By: Edgar Gudino on 04-15-2025 Hemoglobin (Bld) [Mass/Vol] 11.4 g/dL Low 13.0-16.5 [facility] Immature granulocytes/100 WB C Auto (Bld)Ordered By: Edgar Gudino on 04-15-2025 Immature granulocytes/100 WBC (Bld) 0.300 % 0.0-0.9 [facility] Comment on above: IG% - Immature Granu locytes (promyelocytes, myelocytes and metamyelocytes) > 1% indicates that a LEFT SHIFT is Present. Lactic Acidon 04-15-2025 Lactate [Moles/Vol] 1.6 mmol/L Normal 0.0-2.0 [facility] Comment on above: Order Comment: Y Performed By: #### L 500.2500, L100.0100, L503.6005, L501.6710, L101.9900 ####[facility] [address] [place], [address] Lactic acid measurementOrder ed By: Edgar Gudino on 04-15-2025 Lactate [Moles/Vol] 1.6 mmol/L 0.0-2.0 [facility] Lower Ext No Joint W/WO Cont on 04-15-2025 Lower Ext No Joint W/WO Cont Normal [facility] M8200.1075on 04-15-2025 M8200.1075 Normal [facility] Comment on above: Performed By: #### M 8200.1075 ####[facility] [address] [place], [address] MCV (mean corpuscular volume ) determinationOrdered By: Edgar Gudino on 04-15-2025 MCV (RBC) [Entitic vol] 100.9 fL High 80-94 [facility] Mean corpuscular hemoglobin (MCH) determinationOrdered By: Edgar Gudino on 04-15-2025 MCH (RBC) [Entitic mass] 35.4 pg High 27.0-32.0 [facility] Mean corpuscular hemoglobin concentration (MCHC) determinationOrdered By: Edgar Gudino on 04-15-2025 MCHC (RBC) [Mass/Vol] 35.1 g/dL 32-36 [facility] Mean platelet volume determi nationOrdered By: Edgar Gudino on 04-15-2025 Platelet mean volume (Bld) [Entitic vol] 10.8 fL 6.2-12.0 [facility] Monocyte percentageOrdered B y: Edgar Gudino on 04-15-2025 Monocytes/100 WBC (Bld) 12.1 % High 0-10 [facility] Neutrophil percentageOrdered By: Edgar Gudino on 04-15-2025 Neutrophils/100 WBC (Bld) 59.2 % 47-70 [facility] Nucleated red blood cell per centageOrdered By: Edgar Gudino on 04-15-2025 Nucleated RBC/100 WBC (Bld) [Ratio] 0 % 0-5 [facility] Platelet countOrdered By: Candelario Gudino on 04-15-2025 Platelets (Bld) [#/Vol] 200 10*3/uL 150-450 [facility] Potassium measurement (mass/ volume)Ordered By: Edgar Gudino on 04-15-2025 Potassium (Unsp spec) [Mass/Vol] 3.9 mmol/L 3.3-5.1 [facility] RBC Auto (Bld) [#/Vol]Ordere d By: Edgar Gudino on 04-15-2025 RBC (Bld) [#/Vol] 3.22 10*6/uL Low 4.6-6.2 [facility] Serum creatinine measurement (mass/volume)Ordered By: Edgar Gudino on 04-15-2025 Creatinine [Mass/Vol] 1.38 mg/dL High 0.70-1.20 [facility] Serum glucose measurement (m ass/volume)Ordered By: Edgar Gudino on 04-15-2025 Glucose [Mass/Vol] 183 mg/dL High 70-99 [facility] Serum or plasma C reactive p rotein measurement (mass/volume)Ordered By: Coco Pepe on 04-15-2025 CRP [Mass/Vol] 30.60 mg/L High 0.0-3.0 [facility] Serum or plasma C reactive p rotein measurement (mass/volume)Ordered By: Edgar Gudino on 04-15-2025 CRP [Mass/Vol] 30.20 mg/L High 0.0-3.0 [facility] Serum or plasma calcium amadou urement (mass/volume)Ordered By: Edgar Manning on 04-15-2025 Calcium [Mass/Vol] 9.4 mg/dL 7.6-11.0 [facility] Serum or plasma urea nitroge n measurement (mass/volume)Ordered By: Edgar Gudino on 04-15-2025 Urea nitrogen [Mass/Vol] 26 mg/dL High 4-19 [facility] Sodium levelOrdered By: Aly Gudino on 04-15-2025 Sodium [Moles/Vol] 139 mmol/L 133-145 [facility] White blood cell (WBC) count Ordered By: Edgar Gudino on 04-15-2025 WBC (Bld) [#/Vol] 5.9 10*3/uL 4.4-11.0 [facility] Foot min 3 Viewson 5 Foot min 3 Views Normal [facility] 12 Lead EKG performed by [facility] on 03-08-2025 12 Lead EKG performed by [facility] Normal [facility] Cardiology Visit Reporton Cardiology Visit Report Normal [facility] AST(SGOT)on 02-26-2025 AST [Catalytic activity/Vol] 35 U/L Normal <=37 [facility] Comment on above: Performed By: #### L 501.4100, L501.1105, L100.0100, L501.4405, L101.9900, L501.6710 ####[facility] [address] [place], [place], [address] Absolute lymphocyte countOrd ered By: Coco Hinojosafabienne on 02-26-2025 Lymphocytes Auto (Unsp spec) [#/Vol] 2.01 10*3/uL 0.83-4.51 [facility] Absolute neutrophil countOrd ered By: [facility] on 02-26-2025 Neutrophils (Bld) [#/Vol] 2.2 10*3/uL 2.0-7.7 [facility] Alanine Aminotransferas (SGP T)on 02-26-2025 ALT [Catalytic activity/Vol] 32 U/L Normal <=46 [facility] Comment on above: Performed By: #### L 501.4100, L501.1105, L100.0100, L501.4405, L101.9900, L501.6710 ####[facility] [address] [place], [address] Automated lymphocyte count a s percentage of total leukocytesOrdered By: Coco Shah on 02-26-2025 Lymphocytes/100 WBC Auto (Unsp spec) 39.8 % 19-41 [facility] Basophil percentageOrdered B y: Coco Shah on 02-26-2025 Basophils/100 WBC (Bld) 0.6 % 0-1 [facility] CBC W/Diff, Automatedon 02-12 Absolute Lymph 2.01 X10 3/uL Normal 0.83-4.51 [facility] Comment on above: Performed By: #### L 501.4100, L501.1105, L100.0100, L501.4405, L101.9900, L501.6710 ####[facility] [address] [place], [address] Absolute Neut 2.2 X10 3/uL Normal 2.0-7.7 [facility] Comment on above: Performed By: #### L 501.4100, L501.1105, L100.0100, L501.4405, L101.9900, L501.6710 ####[facility] [address] [place], [address] Basophils/100 WBC (Bld) 0.6 % Normal 0-1 [facility] Comment on above: Performed By: #### L 501.4100, L501.1105, L100.0100, L501.4405, L101.9900, L501.6710 ####[facility] [address] [place], [address] Eosinophils/100 WBC (Bld) 5.7 % High 0-5 [facility] Comment on above: Performed By: #### L 501.4100, L501.1105, L100.0100, L501.4405, L101.9900, L501.6710 ####[facility] [address] [place], [address] Erythrocyte distribution width (RBC) [Ratio] 14.3 % Normal 11.6-14.6 [facility] Comment on above: Performed By: #### L 501.4100, L501.1105, L100.0100, L501.4405, L101.9900, L501.6710 ####[facility] [address] [place], [address] Hematocrit (Bld) [Volume fraction] 33.7 % Low 40-54 [facility] Comment on above: Performed By: #### L 501.4100, L501.1105, L100.0100, L501.4405, L101.9900, L501.6710 ####[facility] [address] [place], [address] Hemoglobin (Bld) [Mass/Vol] 11.9 g/dL Low 13.0-16.5 [facility] Comment on above: Performed By: #### L 501.4100, L501.1105, L100.0100, L501.4405, L101.9900, L501.6710 ####[facility] [address] [place], [address] IG% 0.200 Normal 0.0-0.9 [facility] Comment on above: Result Comment: IG% - Immature Granulocytes (promyelocytes, myelocytes andmetamyelocytes) > 1% indicates that a LEFT SHIFT is Present. Performed By: #### L 501.4100, L501.1105, L100.0100, L501.4405, L101.9900, L501.6710 ####[facility] [address] [place], [address] Lymphocytes/100 WBC (Bld) 39.8 % Normal 19-41 [facility] Comment on above: Performed By: #### L 501.4100, L501.1105, L100.0100, L501.4405, L101.9900, L501.6710 ####[facility] [address] [place], [address] MCH (RBC) [Entitic mass] 33.7 pg High 27.0-32.0 [facility] Comment on above: Performed By: #### L 501.4100, L501.1105, L100.0100, L501.4405, L101.9900, L501.6710 ####[facility] [address] [place], [address] MCHC (RBC) [Mass/Vol] 35.3 g/dL Normal 32-36 [facility] Comment on above: Performed By: #### L 501.4100, L501.1105, L100.0100, L501.4405, L101.9900, L501.6710 ####[facility] [address] [place], [address] MCV (RBC) [Entitic vol] 95.5 fL High 80-94 [facility] Comment on above: Performed By: #### L 501.4100, L501.1105, L100.0100, L501.4405, L101.9900, L501.6710 ####[facility] [address] [place], [address] Monocytes/100 WBC (Bld) 10.7 % High 0-10 [facility] Comment on above: Performed By: #### L 501.4100, L501.1105, L100.0100, L501.4405, L101.9900, L501.6710 ####[facility] [address] [place], [address] Neutrophils/100 WBC (Bld) 43.0 % Low 47-70 [facility] Comment on above: Performed By: #### L 501.4100, L501.1105, L100.0100, L501.4405, L101.9900, L501.6710 ####[facility] [address] [place], [address] Nucleated RBC (Bld) [#/Vol] 0 10*3/uL Normal 0-5 [facility] Comment on above: Performed By: #### L 501.4100, L501.1105, L100.0100, L501.4405, L101.9900, L501.6710 ####[facility] [address] [place], [address] Platelet mean volume (Bld) [Entitic vol] 10.8 fL Normal 6.2-12.0 [facility] Comment on above: Performed By: #### L 501.4100, L501.1105, L100.0100, L501.4405, L101.9900, L501.6710 ####[facility] [address] [place], [address] Platelets (Bld) [#/Vol] 278 10*3/uL Normal 150-450 [facility] Comment on above: Performed By: #### L 501.4100, L501.1105, L100.0100, L501.4405, L101.9900, L501.6710 ####[facility] [address] [place], [address] RBC (Bld) [#/Vol] 3.53 10*6/uL Low 4.6-6.2 [facility] Comment on above: Performed By: #### L 501.4100, L501.1105, L100.0100, L501.4405, L101.9900, L501.6710 ####[facility] [address] [place], [address] RDW SD 48.7 fl High 35.1-43.9 [facility] Comment on above: Performed By: #### L 501.4100, L501.1105, L100.0100, L501.4405, L101.9900, L501.6710 ####[facility] [address] [place], [address] WBC (Bld) [#/Vol] 5.1 10*3/uL Normal 4.4-11.0 [facility] Comment on above: Performed By: #### L 501.4100, L501.1105, L100.0100, L501.4405, L101.9900, L501.6710 ####[facility] [address] [place], [address] CRPon 02-26-2025 C-REACTIVE PROT < 3.00 Normal 0.0-3.0 [facility] Comment on above: Performed By: #### L 501.4100, L501.1105, L100.0100, L501.4405, L101.9900, L501.6710 ####[facility] [address] [place], [address] Eosinophil percentageOrdered By: Coco Shah on 02-26-2025 Eosinophils/100 WBC (Bld) 5.7 % High 0-5 [facility] Erythrocyte Sed Rateon 02-26 SED RATE 3 mm/hr Normal 0-20 [facility] Comment on above: Performed By: #### L 501.4100, L501.1105, L100.0100, L501.4405, L101.9900, L501.6710 ####[facility] [address] [place], [place], [id number] Erythrocyte distribution wid th ratioOrdered By: Coco Shah on 02-26-2025 Erythrocyte distribution width (RBC) [Ratio] 14.3 % 11.6-14.6 [facility] Erythrocyte distribution wid th standard deviationOrdered By: Coco Shah on 02-26-2025 Erythrocyte distribution width (RBC) [Ratio] 48.7 fl High 35.1-43.9 [facility] Erythrocyte sedimentation ra teOrdered By: Coco Shah on 02-26-2025 ESR (Bld) [Velocity] 3 mm/h 0-20 [facility] Glomerular filtration rate ( GFR) estimation/1.73 sq m using serum, plasma, or whole bOrdered By: Coco Shah on 02-26-2025 GFR/1.73 sq M.predicted among non-blacks MDRD (S/P/Bld) [Vol rate/Area] 42 mL/min/{1.73_m2} Low >60 [facility] Comment on above: mL/min/1.73m2 CKD-EP I Creatinine Equation (2020) Hematocrit Auto (Bld) [Volum e fraction]Ordered By: Coco Shah on 02-26-2025 Hematocrit (Bld) [Volume fraction] 33.7 % Low 40-54 [facility] Hemoglobin measurementOrdere d By: Coco Shah on 02-26-2025 Hemoglobin (Bld) [Mass/Vol] 11.9 g/dL Low 13.0-16.5 [facility] Immature granulocytes/100 WB C Auto (Bld)Ordered By: Coco Shah on 02-26-2025 Immature granulocytes/100 WBC (Bld) 0.200 % 0.0-0.9 [facility] Comment on above: IG% - Immature Granu locytes (promyelocytes, myelocytes and metamyelocytes) > 1% indicates that a LEFT SHIFT is Present. Laboratory - Chemistry and C hemistry - challengeOrdered By: Coco Shah on 02-26-2025 AST [Catalytic activity/Vol] 35 U/L <38 [facility] MCV (mean corpuscular volume ) determinationOrdered By: Coco Shah on 02-26-2025 MCV (RBC) [Entitic vol] 95.5 fL High 80-94 [facility] Mean corpuscular hemoglobin (MCH) determinationOrdered By: Coco Shah on 02-26-2025 MCH (RBC) [Entitic mass] 33.7 pg High 27.0-32.0 [facility] Mean corpuscular hemoglobin concentration (MCHC) determinationOrdered By: Coco Shah on 02-26-2025 MCHC (RBC) [Mass/Vol] 35.3 g/dL 32-36 [facility] Mean platelet volume determi nationOrdered By: Coco Shah on 02-26-2025 Platelet mean volume (Bld) [Entitic vol] 10.8 fL 6.2-12.0 [facility] Monocyte percentageOrdered B y: Coco Shah on 02-26-2025 Monocytes/100 WBC (Bld) 10.7 % High 0-10 [facility] Neutrophil percentageOrdered By: Coco Shah on 02-26-2025 Neutrophils/100 WBC (Bld) 43.0 % Low 47-70 [facility] Nucleated red blood cell per centageOrdered By: Coco Shah on 02-26-2025 Nucleated RBC/100 WBC (Bld) [Ratio] 0 % 0-5 [facility] Platelet countOrdered By: Filemon Shah on 02-26-2025 Platelets (Bld) [#/Vol] 278 10*3/uL 150-450 [facility] RBC Auto (Bld) [#/Vol]Ordere d By: Coco Shah on 02-26-2025 RBC (Bld) [#/Vol] 3.53 10*6/uL Low 4.6-6.2 [facility] Serum Creatinine AND GFRon 0 02-26-2025 Creatinine [Mass/Vol] 1.64 mg/dL High 0.70-1.20 [facility] Comment on above: Performed By: #### L 501.4100, L501.1105, L100.0100, L501.4405, L101.9900, L501.6710 ####[facility] [address] [place], [address] GFR/1.73 sq M.predicted among non-blacks MDRD (S/P/Bld) [Vol rate/Area] 42 mL/min/{1.73_m2} Low >60 [facility] Comment on above: Result Comment: mL/m in/1.73m2 CKD-EPI Creatinine Equation (2020) Performed By: #### L 501.4100, L501.1105, L100.0100, L501.4405, L101.9900, L501.6710 ####[facility] [address] [place], [place], [address] Serum creatinine measurement (mass/volume)Ordered By: Coco Shah on 02-26-2025 Creatinine [Mass/Vol] 1.64 mg/dL High 0.70-1.20 [facility] Serum or plasma C reactive p rotein measurement (mass/volume)Ordered By: Coco Shah on 02-26-2025 CRP [Mass/Vol] mg/L 0.0-3.0 [facility] Serum or plasma alanine pham otransferase (ALT) measurementOrdered By: Coco Shah on 02-26-2025 ALT [Catalytic activity/Vol] 32 U/L <47 [facility] White blood cell (WBC) count Ordered By: Coco Shah on 02-26-2025 WBC (Bld) [#/Vol] 5.1 10*3/uL 4.4-11.0 [facility] MR/BMSShima 01-09-2025 MR/BMS.JAISON Normal [facility] Office Visiton 10-31-2024 Follow-up visit [id number] Yessi Hatch 1945 M Date Provider Department Center 10/31/2024 GEORGINA MCBRIDE [facility] None No family history on file Level of Service:55233 NM OFFICE/OUTPATIENT ESTABLISHED MOD MDM 30 MIN Reason for Visit and Comments: Actinic Keratosis [[id number]] - EVAN 07/11/[address] Moore (AT) [facility] Progress Noteon 10-31-2024 Progress Note DATE OF SERVICE: 10/31/2024 PATIENT NAME: Yessi Hatch : 1945 AGE: 79 y.o. CLINIC NUMBER: [id number] Visit type: Established patient Chief Complaint Patient [...] or Adhesive? No. 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 Excessive sun exposure: Yes Used tanning [...] (10) Left Forehead, Left Parotid Area, Left Tenriism, Left Temporal Scalp, Left Zygomatic Area, Right Forehead, Right Parotid Area, Right Tenriism, Right Temporal Scalp, Right Zygomatic Area Widespread [...] on face, armpits, groin Risks associated with halfway topical steroid use reviewed in detail. Patient [...] MD 10/31/24 10:46 AM REFERRING MD: Aliyah [facility] Albumin to globulin ratioOrd ered By: Zach Turner on 10-30-2024 Albumin/Globulin [Mass ratio] 0.8 {ratio} Low 0.9-2.4 [facility] Bilirubin, totalOrdered By: Zach Turner on 10-30-2024 Bilirubin [Mass/Vol] 0.50 mg/dL 0.20-1.00 [facility] Comment on above: For patients on eltr ombopag therapy, use of Dimension [place] TBIL is not recommended. Blood urea nitrogen (BUN)/cr eatinine ratioOrdered By: Zach Turner on 10-30-2024 Urea nitrogen/Creatinine [Mass ratio] 16.2 mg/mg 10-20 [facility] Carbon dioxide measurementOr dered By: Zach Turner on 10-30-2024 CO2 [Moles/Vol] 26.0 mmol/L 21.0-32.0 [facility] Chloride measurementOrdered By: Zach Turner on 10-30-2024 Chloride [Moles/Vol] 106 mmol/L 98-107 [facility] Comprehensive Metabolic Prof ilon 10-30-2024 Albumin [Mass/Vol] 3.4 g/dL Normal 3.2-5.0 [facility] Comment on above: Order Comment: Order Date: 10/30/24Order Info: 0786-1 - CMP Performed By: #### L 500.4050 ####[facility] [address] [place], [place], [id number] Albumin/Globulin [Mass ratio] 0.8 {ratio} Low 0.9-2.4 [facility] Comment on above: Order Comment: Order Date: 10/30/24Order Info: 0786-1 - CMP Performed By: #### L 500.4050 ####[facility] [address], [address] ALK P 110 U/L Normal 45-117 [facility] Comment on above: Order Comment: Order Date: 10/30/24Order Info: 0786-1 - CMP Performed By: #### L 500.4050 ####[facility] [address] [place], [address] ALT [Catalytic activity/Vol] 31 U/L Normal 16-61 [facility] Comment on above: Order Comment: Order Date: 10/30/24Order Info: 0786-1 - CMP Performed By: #### L 500.4050 ####[facility] [address] [place], [address] AST [Catalytic activity/Vol] 26 U/L Normal 15-37 [facility] Comment on above: Order Comment: Order Date: 10/30/24Order Info: 0786-1 - CMP Performed By: #### L 500.4050 ####[facility] [address] [place], [address] Bilirubin [Mass/Vol] 0.50 mg/dL Normal 0.20-1.00 [facility] Comment on above: Order Comment: Order Date: 10/30/24Order Info: 0786-1 - CMP Result Comment: For patients on eltrombopag therapy, use of Dimension [place] TBIL is not recommended. Performed By: #### L 500.4050 ####[facility] [address] [place], [address] BUN/CRE 16.2 RATIO Normal 10-20 [facility] Comment on above: Order Comment: Order Date: 10/30/24Order Info: 0786-1 - CMP Performed By: #### L 500.4050 ####[facility] [address] [place], [address] CA,Total 9.8 mg/dL Normal 8.5-10.1 [facility] Comment on above: Order Comment: Order Date: 10/30/24Order Info: 07- - CMP Performed By: #### L 500.4050 ####[facility] [address] [place], [address] Chloride [Moles/Vol] 106 mmol/L Normal 98-107 [facility] Comment on above: Order Comment: Order Date: 10/30/24Order Info: 785-1 - CMP Performed By: #### L 500.4050 ####[facility] [address] [place], [address] CO2 [Moles/Vol] 26.0 mmol/L Normal 21.0-32.0 [facility] Comment on above: Order Comment: Order Date: 10/30/24Order Info: 785- - CMP Performed By: #### L 500.4050 ####[facility] [address] [place], [address] Creatinine [Mass/Vol] 1.36 mg/dL High 0.70-1.30 [facility] Comment on above: Order Comment: Order Date: 10/30/24Order Info: 785- - CMP Result Comment: The validity of the calculated GFR GFRAA in patients over70 years has not been determined. Clinical correlation isessential. Performed By: #### L 500.4050 ####[facility] [address] [place], [address] EST GFR - AA 65 mL/min Normal >60 [facility] Comment on above: Order Comment: Order Date: 10/30/24Order Info: 07-1 - CMP Result Comment: Afri can Togolese GFR Calc Performed By: #### L 500.4050 ####[facility] [address] [place], [address] GAP 5 Normal 5-15 [facility] Comment on above: Order Comment: Order Date: 10/30/24Order Info: 07- - CMP Performed By: #### L 500.4050 ####[facility] [address] [place], [place], [id number] GFR/1.73 sq M.predicted among non-blacks MDRD (S/P/Bld) [Vol rate/Area] 53 mL/min/{1.73_m2} Low >60 [facility] Comment on above: Order Comment: Order Date: 10/30/24Order Info: 0786-1 - CMP Result Comment: Non- GFR Calc Performed By: #### L 500.4050 ####[facility] [address] [place], [place], [phone] Globulin (S) [Mass/Vol] 4.2 g/dL Normal 2.2-4.2 [facility] Comment on above: Order Comment: Order Date: 10/30/24Order Info: 0786-1 - CMP Performed By: #### L 500.4050 ####[facility] [address] [place], [address] Glucose [Mass/Vol] 195 mg/dL High 74-106 [facility] Comment on above: Order Comment: Order Date: 10/30/24Order Info: 0786-1 - CMP Result Comment: Fast ing Glucose result greater than or equal to 126 mg/dLsuggests DIABETES MELLITUS per A.D.A. criteria. Performed By: #### L 500.4050 ####[facility] [address] [place], [place], [phone] Potassium [Moles/Vol] 3.9 mmol/L Normal 3.5-5.1 [facility] Comment on above: Order Comment: Order Date: 10/30/24Order Info: 0786-1 - CMP Performed By: #### L 500.4050 ####[facility] [address] [place], [place], [phone] Sodium [Moles/Vol] 138 mmol/L Normal 136-145 [facility] Comment on above: Order Comment: Order Date: 10/30/24Order Info: 0786-1 - CMP Performed By: #### L 500.4050 ####[facility] [address] [place], [place], [address] T PROT 7.6 g/dL Normal 6.4-8.2 [facility] Comment on above: Order Comment: Order Date: 10/30/24Order Info: 0786-1 - CMP Performed By: #### L 500.4050 ####[facility] [address] [place], [address] Urea nitrogen [Mass/Vol] 22 mg/dL High 7-18 [facility] Comment on above: Order Comment: Order Date: 10/30/24Order Info: 0786-1 - CMP Performed By: #### L 500.4050 ####[facility] [address] [place], [address] Estimated glomerular filtrat ion rate (GFR) AmericanOrdered By: Zach Turner on 10-30-2024 Estimated GFR (MDRD) Amer 65 mL/min >60 [facility] Comment on above: GFR Calc Glomerular filtration rate ( GFR) estimationOrdered By: Zach Turner on 10-30-2024 Estimated GFR (MDRD) Non-Af Amer 53 mL/min Low >60 [facility] Comment on above: Non- GFR Calc Glucose measurementOrdered B y: Zach Turner on 10-30-2024 Glucose [Mass/Vol] 195 mg/dL High 74-106 [facility] Comment on above: Fasting Glucose resu lt greater than or equal to 126 mg/dL suggests DIABETES MELLITUS per A.D.A. criteria. Laboratory - Chemistry and C hemistry - challengeOrdered By: Zach Turner on 10-30-2024 AST [Catalytic activity/Vol] 26 U/L 15-37 [facility] Potassium measurementOrdered By: Zach Turner on 10-30-2024 Potassium [Moles/Vol] 3.9 mmol/L 3.5-5.1 [facility] Serum anion gap measurementO rdered By: Zach Turner on 10-30-2024 Anion gap [Moles/Vol] 5 mmol/L 5-15 [facility] Serum globulin measurementOr dered By: Zach Turner on 10-30-2024 Globulin (S) [Mass/Vol] 4.2 g/dL 2.2-4.2 [facility] Serum or plasma alanine pham otransferase (ALT) measurementOrdered By: Zach Turner on 10-30-2024 ALT [Catalytic activity/Vol] 31 U/L 16-61 [facility] Serum or plasma albumin amadou urement (mass/volume)Ordered By: Zach Turner on 10-30-2024 Albumin [Mass/Vol] 3.4 g/dL 3.2-5.0 [facility] Serum or plasma alkaline jovana sphatase measurementOrdered By: Zach Turner on 10-30-2024 ALP [Catalytic activity/Vol] 110 U/L 45-117 [facility] Serum or plasma calcium amadou urement (mass/volume)Ordered By: Zach Turner on 10-30-2024 Calcium [Mass/Vol] 9.8 mg/dL 8.5-10.1 [facility] Serum or plasma creatinine m easurement (mass/volume)Ordered By: Zach Turner on 10-30-2024 Creatinine [Mass/Vol] 1.36 mg/dL High 0.70-1.30 [facility] Comment on above: The validity of the calculated GFR & GFRAA in patients over 70 years has not been determined. Clinical correlation is essential. Serum or plasma urea nitroge n measurement (mass/volume)Ordered By: Zach Turner on 10-30-2024 Urea nitrogen [Mass/Vol] 22 mg/dL High 7-18 [facility] Sodium levelOrdered By: Zach Turner on 10-30-2024 Sodium [Moles/Vol] 138 mmol/L 136-145 [facility] Total proteinOrdered By: Ksenia Turner on 10-30-2024 Protein [Mass/Vol] 7.6 g/dL 6.4-8.2 [facility] Basic Metabolic Profile (BMP )on 10-08-2024 BUN/CRE 20.0 RATIO Normal 10-20 [facility] Comment on above: Order Comment: Order Date: 10/02/24Order Info: 0667-1 - BMP Performed By: #### L 500.2500 ####[facility] [address] [place], [address] CA,Total 10.0 mg/dL Normal 8.5-10.1 [facility] Comment on above: Order Comment: Order Date: 10/02/24Order Info: 666-11 - BMP Performed By: #### L 500.2500 ####[facility] [address] [place], [address] Chloride [Moles/Vol] 106 mmol/L Normal 98-107 [facility] Comment on above: Order Comment: Order Date: 10/02/24Order Info: 666-11 - BMP Performed By: #### L 500.2500 ####[facility] [address] [place], [address] CO2 [Moles/Vol] 26.0 mmol/L Normal 21.0-32.0 [facility] Comment on above: Order Comment: Order Date: 10/02/24Order Info: 666-11 - BMP Performed By: #### L 500.2500 ####[facility] [address] [place], [address] Creatinine [Mass/Vol] 1.40 mg/dL High 0.70-1.30 [facility] Comment on above: Order Comment: Order Date: 10/02/24Order Info: 666-11 - BMP Result Comment: The validity of the calculated GFR GFRAA in patients over70 years has not been determined. Clinical correlation isessential. Performed By: #### L 500.2500 ####[facility] [address] [place], [address] EST GFR - AA 63 mL/min Normal >60 [facility] Comment on above: Order Comment: Order Date: 10/02/24Order Info: 666-11 - BMP Result Comment: Afri can Togolese GFR Calc Performed By: #### L 500.2500 ####[facility] [address] [place], [address] GAP 8 Normal 5-15 [facility] Comment on above: Order Comment: Order Date: 10/02/24Order Info: 666-11 - BMP Performed By: #### L 500.2500 ####[facility] [address] [place], [phone] GFR/1.73 sq M.predicted among non-blacks MDRD (S/P/Bld) [Vol rate/Area] 52 mL/min/{1.73_m2} Low >60 [facility] Comment on above: Order Comment: Order Date: 10/02/24Order Info: 666-11 - BMP Result Comment: Non- GFR Calc Performed By: #### L 500.2500 ####[facility] [address] [place], [address](512) Glucose [Mass/Vol] 169 mg/dL High 74-106 [facility] Comment on above: Order Comment: Order Date: 10/02/24Order Info: 666-11 - BMP Result Comment: Fast ing Glucose result greater than or equal to 126 mg/dLsuggests DIABETES MELLITUS per A.D.A. criteria. Performed By: #### L 500.2500 ####[facility] [address] [place], [address] Potassium [Moles/Vol] 4.1 mmol/L Normal 3.5-5.1 [facility] Comment on above: Order Comment: Order Date: 10/02/24Order Info: 666-11 - BMP Performed By: #### L 500.2500 ####[facility] [address] [place], [address] Sodium [Moles/Vol] 140 mmol/L Normal 136-145 [facility] Comment on above: Order Comment: Order Date: 10/02/24Order Info: 666-11 - BMP Performed By: #### L 500.2500 ####[facility] [address] [place], [address] Urea nitrogen [Mass/Vol] 28 mg/dL High 7-18 [facility] Comment on above: Order Comment: Order Date: 10/02/24Order Info: 0667-1 - BMP Performed By: #### L 500.2500 ####[facility] [address] [place], [address] CRPon 10-02-2024 C-REACTIVE PROT 9.97 mg/L High 0.0-3.0 [facility] Comment on above: Order Comment: Order Date: 10/02/24Order Info: 83231-0 - CRP Result Comment: C-Re active Protein (CRP) provides useful information for thediagnosis, therapy and monitoring of inflammatory processesand associated diseases. For the evaluation of Relative Riskfor Cardiovascular Disease, a High Sensitivity CRP (HSCRP)should be ordered. Performed By: #### L 501.6710, L101.9900 ####[facility] [address] [place], [address] Erythrocyte Sed Rateon 10-02 SED RATE 16 mm/hr Normal 0- [facility] Comment on above: Order Comment: Order Date: 10/02/24Order Info: 70324-3 - SED Performed By: #### L 501.6710, L101.9900 ####[facility] [address] [place], [address] Emergency Department Summary on 09-30-2024 Emergency Department Summary Normal [facility] BUNon 09-07-2024 Urea nitrogen [Mass/Vol] 26 mg/dL High 05-31 [facility] Comment on above: Performed By: #### L 501.1000, L400.0001, L501.1105 ####[facility] [address] [place], [address] Serum Creatinine AND GFRon Creatinine [Mass/Vol] 1.40 mg/dL High 0.70-1.30 [facility] Comment on above: Result Comment: The validity of the calculated GFR GFRAA in patients over70 years has not been determined. Clinical correlation isessential. Performed By: #### L 501.1000, L400.0001, L501.1105 ####[facility] [address] [place], [address] EST GFR - AA 63 mL/min Normal >60 [facility] Comment on above: Result Comment: Afri can Togolese GFR Calc Performed By: #### L 501.1000, L400.0001, L501.1105 ####[facility] [address] [place], [address] GFR/1.73 sq M.predicted among non-blacks MDRD (S/P/Bld) [Vol rate/Area] 52 mL/min/{1.73_m2} Low >60 [facility] Comment on above: Result Comment: Non- GFR Calc Performed By: #### L 501.1000, L400.0001, L501.1105 ####[facility] [address] [place], [address] Urinalysis, Completeon 09-07 BACTERIA 0 SEEN Normal None Seen [facility] Comment on above: Order Comment: CLEAN CATCH Performed By: #### L 501.1000, L400.0001, L501.1105 ####[facility] [address] [place], [address] EPI,SQUAMOUS 0 SEEN Normal 0-5 [facility] Comment on above: Order Comment: CLEAN CATCH Performed By: #### L 501.1000, L400.0001, L501.1105 ####[facility] [address] [place], [address] Mucus Ql (Urine sed) 0 SEEN Normal [facility] Comment on above: Order Comment: CLEAN CATCH Performed By: #### L 501.1000, L400.0001, L501.1105 ####[facility] [address] [place], [address] RBC 0 SEEN Normal 0-5 [facility] Comment on above: Order Comment: CLEAN CATCH Performed By: #### L 501.1000, L400.0001, L501.1105 ####[facility] [address] [place], [address] WBC 0 SEEN Normal 0-5 [facility] Comment on above: Order Comment: CLEAN CATCH Performed By: #### L 501.1000, L400.0001, L501.1105 ####[facility] [address] [place], [address] [facility] SENDOUT (SENDOUT)o n 08-28-2024 [facility] MISCELLANEOUS LAB TEST RESULT Normal [facility] Comment on above: Result Comment: FARAZ Patel COMMENTS: Results are attached to the pathology report, case # [id number]. See scan in [facility]. Performed By: #### L [id number] ####[employer]um Operator: SOLEDAD BEASLEY ([phone])[facility] ([address] AST(SGOT)on 08-22-2024 AST [Catalytic activity/Vol] 23 U/L Normal 15-37 [facility] Comment on above: Performed By: #### L 501.6710, L501.4405, L501.1105, L101.9900, L100.0100, L501.4100 ####[facility] [address] [place], [address] Alanine Aminotransferas (SGP T)on 08-22-2024 ALT [Catalytic activity/Vol] 27 U/L Normal 16-61 [facility] Comment on above: Performed By: #### L 501.6710, L501.4405, L501.1105, L101.9900, L100.0100, L501.4100 ####[facility] [address] [place], [address] CBC W/Diff, Automatedon 10-0 Absolute Lymph 1.01 X10 3/uL Normal 0.83-4.51 [facility] Comment on above: Performed By: #### L 501.6710, L501.4405, L501.1105, L101.9900, L100.0100, L501.4100 ####[facility] [address] [place], [address] Absolute Neut 3.8 X10 3/uL Normal 2.0-7.7 [facility] Comment on above: Performed By: #### L 501.6710, L501.4405, L501.1105, L101.9900, L100.0100, L501.4100 ####[facility] [address] [place], [address] Basophils/100 WBC (Bld) 0.8 % Normal 0-1 [facility] Comment on above: Performed By: #### L 501.6710, L501.4405, L501.1105, L101.9900, L100.0100, L501.4100 ####[facility] [address] [place], [address] Eosinophils/100 WBC (Bld) 9.5 % High 0-5 [facility] Comment on above: Performed By: #### L 501.6710, L501.4405, L501.1105, L101.9900, L100.0100, L501.4100 ####[facility] [address] [place], [address] Erythrocyte distribution width (RBC) [Ratio] 14.7 % High 11.6-14.6 [facility] Comment on above: Performed By: #### L 501.6710, L501.4405, L501.1105, L101.9900, L100.0100, L501.4100 ####[facility] [address] [place], [address] Hematocrit (Bld) [Volume fraction] 34.0 % Low 40-54 [facility] Comment on above: Performed By: #### L 501.6710, L501.4405, L501.1105, L101.9900, L100.0100, L501.4100 ####[facility] [address] [place], [address] Hemoglobin (Bld) [Mass/Vol] 11.4 g/dL Low 13.0-16.5 [facility] Comment on above: Performed By: #### L 501.6710, L501.4405, L501.1105, L101.9900, L100.0100, L501.4100 ####[facility] [address] [place], [address] IG% 0.800 Normal 0.0-0.9 [facility] Comment on above: Result Comment: IG% - Immature Granulocytes (promyelocytes, myelocytes andmetamyelocytes) > 1% indicates that a LEFT SHIFT is Present. Performed By: #### L 501.6710, L501.4405, L501.1105, L101.9900, L100.0100, L501.4100 ####[facility] [address] [place], [address] Lymphocytes/100 WBC (Bld) 16.0 % Low 19-41 [facility] Comment on above: Performed By: #### L 501.6710, L501.4405, L501.1105, L101.9900, L100.0100, L501.4100 ####[facility] [address] [place], [address] MCH (RBC) [Entitic mass] 33.5 pg High 27.0-32.0 [facility] Comment on above: Performed By: #### L 501.6710, L501.4405, L501.1105, L101.9900, L100.0100, L501.4100 ####[facility] [address] [place], [address] MCHC (RBC) [Mass/Vol] 33.5 g/dL Normal 32-36 [facility] Comment on above: Performed By: #### L 501.6710, L501.4405, L501.1105, L101.9900, L100.0100, L501.4100 ####[facility] [address] [place], [address] MCV (RBC) [Entitic vol] 100.0 fL High 80-94 [facility] Comment on above: Performed By: #### L 501.6710, L501.4405, L501.1105, L101.9900, L100.0100, L501.4100 ####[facility] [address] [place], [address] Monocytes/100 WBC (Bld) 12.8 % High 0-10 [facility] Comment on above: Performed By: #### L 501.6710, L501.4405, L501.1105, L101.9900, L100.0100, L501.4100 ####[facility] [address] [place], [address] Neutrophils/100 WBC (Bld) 60.1 % Normal 47-70 [facility] Comment on above: Performed By: #### L 501.6710, L501.4405, L501.1105, L101.9900, L100.0100, L501.4100 ####[facility] [address] [place], [address] Nucleated RBC (Bld) [#/Vol] 0 10*3/uL Normal 0-5 [facility] Comment on above: Performed By: #### L 501.6710, L501.4405, L501.1105, L101.9900, L100.0100, L501.4100 ####[facility] [address] [place], [address] Platelet mean volume (Bld) [Entitic vol] 10.5 fL Normal 6.2-12.0 [facility] Comment on above: Performed By: #### L 501.6710, L501.4405, L501.1105, L101.9900, L100.0100, L501.4100 ####[facility] [address] [place], [address] Platelets (Bld) [#/Vol] 192 10*3/uL Normal 150-450 [facility] Comment on above: Performed By: #### L 501.6710, L501.4405, L501.1105, L101.9900, L100.0100, L501.4100 ####[facility] [address] [place], [address] RBC (Bld) [#/Vol] 3.40 10*6/uL Low 4.6-6.2 [facility] Comment on above: Performed By: #### L 501.6710, L501.4405, L501.1105, L101.9900, L100.0100, L501.4100 ####[facility] [address] [place], [address] RDW SD 52.3 fl High 35.1-43.9 [facility] Comment on above: Performed By: #### L 501.6710, L501.4405, L501.1105, L101.9900, L100.0100, L501.4100 ####[facility] [address] [place], [address] WBC (Bld) [#/Vol] 6.3 10*3/uL Normal 4.4-11.0 [facility] Comment on above: Performed By: #### L 501.6710, L501.4405, L501.1105, L101.9900, L100.0100, L501.4100 ####[facility] [address] [place], [address] CRPon 08-22-2024 C-REACTIVE PROT < 2.90 Normal 0.0-3.0 [facility] Comment on above: Result Comment: C-Re active Protein (CRP) provides useful information for thediagnosis, therapy and monitoring of inflammatory processesand associated diseases. For the evaluation of Relative Riskfor Cardiovascular Disease, a High Sensitivity CRP (HSCRP)should be ordered. Performed By: #### L 501.6710, L501.4405, L501.1105, L101.9900, L100.0100, L501.4100 ####[facility] [address] [place], [address] Erythrocyte Sed Rateon 08-22 SED RATE 2 mm/hr Normal 0-20 [facility] Comment on above: Performed By: #### L 501.6710, L501.4405, L501.1105, L101.9900, L100.0100, L501.4100 ####[facility] [address] [place], [address] Serum Creatinine AND GFRon 1 Creatinine [Mass/Vol] 1.53 mg/dL High 0.70-1.30 [facility] Comment on above: Result Comment: The validity of the calculated GFR GFRAA in patients over70 years has not been determined. Clinical correlation isessential. Performed By: #### L 501.6710, L501.4405, L501.1105, L101.9900, L100.0100, L501.4100 ####[facility] [address] [place], [address] EST GFR - AA 56 mL/min Low >60 [facility] Comment on above: Result Comment: Afri can Togolese GFR Calc Performed By: #### L 501.6710, L501.4405, L501.1105, L101.9900, L100.0100, L501.4100 ####[facility] [address] [place], [address] GFR/1.73 sq M.predicted among non-blacks MDRD (S/P/Bld) [Vol rate/Area] 47 mL/min/{1.73_m2} Low >60 [facility] Comment on above: Result Comment: Non- GFR Calc Performed By: #### L 501.6710, L501.4405, L501.1105, L101.9900, L100.0100, L501.4100 ####[facility] [address] [place], [address] PT D/C Summary (1)on 024 PT D/C Summary (1) Normal [facility] CBC W/Diff, Automatedon 07-15 Absolute Lymph 1.01 X10 3/uL Normal 0.83-4.51 [facility] Comment on above: Performed By: #### L 100.0100 ####[facility] [address] [place], [address] Absolute Neut 2.5 X10 3/uL Normal 2.0-7.7 [facility] Comment on above: Performed By: #### L 100.0100 ####[facility] [address] [place], [address] Basophils/100 WBC (Bld) 0.9 % Normal 0-1 [facility] Comment on above: Performed By: #### L 100.0100 ####[facility] [address] [place], [address] Eosinophils/100 WBC (Bld) 10.4 % High 0-5 [facility] Comment on above: Performed By: #### L 100.0100 ####[facility] [address] [place], [address] Erythrocyte distribution width (RBC) [Ratio] 14.6 % Normal 11.6-14.6 [facility] Comment on above: Performed By: #### L 100.0100 ####[facility] [address] [place], [address] Hematocrit (Bld) [Volume fraction] 33.9 % Low 40-54 [facility] Comment on above: Performed By: #### L 100.0100 ####[facility] [address] [place], [address] Hemoglobin (Bld) [Mass/Vol] 11.4 g/dL Low 13.0-16.5 [facility] Comment on above: Performed By: #### L 100.0100 ####[facility] [address] [place], [address] IG% 0.400 Normal 0.0-0.9 [facility] Comment on above: Result Comment: IG% - Immature Granulocytes (promyelocytes, myelocytes andmetamyelocytes) > 1% indicates that a LEFT SHIFT is Present. Performed By: #### L 100.0100 ####[facility] [address] [place], [address] Lymphocytes/100 WBC (Bld) 22.2 % Normal 19-41 [facility] Comment on above: Performed By: #### L 100.0100 ####[facility] [address] [place], [address] MCH (RBC) [Entitic mass] 33.5 pg High 27.0-32.0 [facility] Comment on above: Performed By: #### L 100.0100 ####[facility] [address] [place], [address] MCHC (RBC) [Mass/Vol] 33.6 g/dL Normal 32-36 [facility] Comment on above: Performed By: #### L 100.0100 ####[facility] [address] [place], [address] MCV (RBC) [Entitic vol] 99.7 fL High 80-94 [facility] Comment on above: Performed By: #### L 100.0100 ####[facility] [address] [place], [address] Monocytes/100 WBC (Bld) 10.4 % High 0-10 [facility] Comment on above: Performed By: #### L 100.0100 ####[facility] [address] [place], [address] Neutrophils/100 WBC (Bld) 55.7 % Normal 47-70 [facility] Comment on above: Performed By: #### L 100.0100 ####[facility] [address] [place], [address] Nucleated RBC (Bld) [#/Vol] 0 10*3/uL Normal 0-5 [facility] Comment on above: Performed By: #### L 100.0100 ####[facility] [address] [place], [address] Platelet mean volume (Bld) [Entitic vol] 10.5 fL Normal 6.2-12.0 [facility] Comment on above: Performed By: #### L 100.0100 ####[facility] [address] [place], [address] Platelets (Bld) [#/Vol] 209 10*3/uL Normal 150-450 [facility] Comment on above: Performed By: #### L 100.0100 ####[facility] [address] [place], [address] RBC (Bld) [#/Vol] 3.40 10*6/uL Low 4.6-6.2 [facility] Comment on above: Performed By: #### L 100.0100 ####[facility] [address] [place], [address] RDW SD 50.9 fl High 35.1-43.9 [facility] Comment on above: Performed By: #### L 100.0100 ####[facility] [address] [place], [address] WBC (Bld) [#/Vol] 4.5 10*3/uL Normal 4.4-11.0 [facility] Comment on above: Performed By: #### L 100.0100 ####[facility] [address] [place], [address] 36on 07-26-2024 36 Patient scheduled wi th DSC on 08/15/2024 at 1:[address] [facility] 07-23-[address] Moore: Please let [...] phone number. Pt educated and verbalized understanding. [facility] 07-20-2024 36 Called and LMOM for pt-Pt to return call. [facility] 07-19-2024 36 Patient left voicema il on nurse line requesting a call back for his recent biopsy results. He states he has other questions as well. [facility] 07-18-2024 36 Called and LMOM for pt-Pt to return call. [facility] Re-Evaluation - PT (1)on Re-Evaluation - PT (1) [facility] 36on 07-17-2024 36 Please refer the patient to a Moh's surgeon to have the lesion of his left ear treated by Moh's. [facility] Tissue examOrdered By: Reagan Burch on 07-13-2024 Case Report Surgical Pathology Case: [id number] Authorizing Provider: Georgina Moore MD Collected: 07/11/2024 1328 Ordering Location: [facility] Received: 07/12/2024 1034 Dermatology Pathologist: Adan Burch MD Specimen: DERM, Skin, Left [place] [facility] [employer] Work Phone: Clinical Information e4utnWTjVFCitCIqFIe wNF kvwfHeYKXlcIZgS1Zqofrw SUrqVB3qIE8vfEwldGHufD EoYAZnRnHzn0ybj482lMMs e6hvEEAYORodVWBRQIt4pO cjH44pz7A6ZidwX16orKXa MNU6DVSgJXSwlZXeOAFuGU N8CPPheFJvP2psFBDgEO8b wqpdSKntHVdfFXBahRQ9KA FgbCYkI8GdUTHzHWyiJMRp ukz1ZjXqVj9qiWDwzIjwMT xwYXJkXHBsYWluXGZzMjAg QeIXXIShwjZ5ifBSF9XvzC FyfQ== [employer] Work Phone: Disclaimer n3hrmFKoKHTjoLLeOqEd KbVUWoz9toFSKrgIYrMlGd MzNcZnRuYmpcdWMxXGRlZm Ydc6xbq539eYYyw9ktQNVn XvS9mNJqVIHyV11jHZSRV0 18YBGaCUfbx5cas5NnVGPr zFYbt9B6PJHISMemLSYPWB k7tXaeY16tf5F0SkuiZ6gx VBXqMAJtL0PrJG6rOWKbCd r2VFB9JFF5XQOaDCKbI5My TS3cWDKxvDHzOJk5p3yqjJ amVLVuGOM0j4tfNWipirPh IN5dsj5njKd3z2zodsVvBD DxWJUhxUIETHJeG0JbwNsr Gm0acMa7gZrdSuhhYAH0Hx p8PK6npm12jsz8pQjdIFYy dnwvEyO5CObjUNLeurqoZO p6UObzIAMvaRZ7ZCXzgZCh U3PkNITtMZ3apwh7CYD8LU djNAYoZuL4ZOXfhFVuUQQp sFgkXYgcq701AEQ2ZjKdCQ 1fT4Gar5W3kN3vhUZdJVUo wIMuMwVnCPFexf4hpCXvFG map9NnVAI8idI3sCFszIJy HBBzUH47Yzjdc9KmKhwdMV Q3VPErwoZel8Arj6ozAbRy tiErF9zhT7ZnAAVpCVRmXX YdAxDvnjTdq1Kfv5VpeTJp qPv1z5isZDEeVBOpfTtkb2 wiNNT4PPPzJ8V2rHUei3bn TZxyBWTlaSN0pbP3NBZexS ZcY1IbnH6dUHArNJ0fgrw0 v1tlBZO0UTfwDMBjXyR2ci V2BDAogVZsHPCfoIjmHXqx l033GXP0JwYgHNYlh1AgS2 CizUweG96agTqoR30aTKAb iSextV7sbGfdmI3iOqMuWi MyNFxxbFxwbGFpblxmMVxm aaT5OEyfsbboBIPxVEiqC5 anRcKaRPCmdPjeNEuuv4Gr GAYhFGSmJGJpQPwdP6uptP 0fvgoeFSquNKNnvDqnj1xu DgAckJR3VR7mbzYtKCQmwK nsolM4vfSfkTmkxL7toR2k cKfptB3rqPKtaAN2casaYS luIHNpdHUgaHlicmlkaXph fKitdlofqU3mTOP1yRAmED Y9yXZyAWJaXBRkMGMymY24 eu3owCQqngGxK4OqG7AbqG DknPmyMncpgNAneJMgSl5w fFLwMG2sAFEwjMBrA7YwTN 4gXHBhclxwYXIgVGhlIHVz VOJvIwZzhwXvs8CcfZ8fZW GtMSCqJW91ykWumsB0hWLn YWJvdmUgdGVzdHMgaXMgcm VndWxhdGVkIGFzIGFuIGFu ELl2eDEas3HzS9ciqFTrsi HjT8McxKNkLRGTHC8fMHip g3NebFTjpPOgu9TtMWXeFL JfeH9eLVYvMS1zLECxSVwd GMTpcwIhcp8juyPgPCPaIU GoW8CwenetfQovpfMiLQGg ek3vjpNpBVM1USFfGRSkkE elrOKwlIQnCSWteiG0m3Xx CDGnp3BeF5LaaBXrIWGezK YqJNX1r3RluB8bRXpzdHBg WHZjKU0jpFKxTXWoHLPlVU FyZWQgYnkgdGhlIFVTIEZv s4MsFM3gUDQlfXqxKEYqoT 1yx6EhKBIwk94xZCDNJKnd IFRoZSBGREEgaGFzIGRldG VybWluZWQgdGhhdCBzdWNo OIBvEWCtJQ5lATJqstTurL Syl4GlvNFiouQbq4CfjfIu WHOzVAD4KxSudDAfJYAaqd FQmJjdeN6bdB1wx1JthH2p YJsgziVfdPUmXg0wmQQaXA 9uIHBhcmFmZmluIGVtYmVk JXYrVEZmg2K0CJ4zGBPdwr 3ygrzffVHgyS5slAXuxpGa HS0wVC9pD0Y1kGFxJSXoke Elf1bkIVd1vQImMSTbaIMc mOIsGkaqWTN3YYXhDRA0ui ZxhkQiWMDgvLissZD3wTYx VIGsSYHxCTAvUM88P7Huk6 QkD2jvBF67EYSiJFHrXOVb slWnn8caSVBdy9lvJIOkxE IiB4HqWNArfCPbenaoLnYj DHN5IRDeLXM1gSQhUBYoK8 JsdQVmwSFgjI33IV7hcYH5 AJ1lEQA5XBvvyD3aVeYGqB 26mo8ooQJ9e7WbMC6fH9Mj AUUkg5F0udWkFKEpLQ4asO BiZWVuIHZhbGlkYXRlZCBv ajKiJQZtfUVnGgcxMVE3qP IxnEYnGrVSRRA8gBJcOOOy k5JeEZAzTGVsohJlhiRjBW ThXHF7rLUkMLIqsJFlz72n H1j9UW0gwKctGQMrnZCmTM Tlv5DncWXuoZm0kTQoEjOs XNpxYCRmLFtrlAi2aSE3OU 1vZTTfE7NzS6vniHRnAOPg ZGAqaAYuzx0mrWYbeF== [facility] Work Phone: Gross Description t6mpdYOqLHIxgYBvGVhh NF kadmRoSGLteCPpL0Qxrnsm QYssSM8nDY9dmSlltKYlzY PjXTEwApRcf4oom686zHWb m9ilGBFRWHmcKIMFMDw5mZ yhE02qv0R8CbpgO70obPJl FWX5QTWkEWUscAGjDIEkUK Z2YZPirNIaJ1niALKoMT5l xnmnSYoiBSpmSFAwzUP1HV VmsTUyA5WgDUTgROmkRGSe vbn6MyExPr1wlHCcqCtwTU xwYXJkXHBsYWluXGZzMjAg UlXrOEi0AJHznL4uXl7suQ DksY5znVGpAXxuABBuLurc WhVpy1TgXYHki6XiuEAayX azGTzbXOWzkO1zyJypxzOu JkIpb9bkGYYeZCBsgYVlw5 ZiACKkZC6lKKnaZLW2AVSk DXWagB2nOOGzFYJhZOfqTW VtS5HefD31XS8hdQTlaG7j NK2gMJYpNWSzmLRxCWItYA 7eGROqLOQjp5fcSK0pUQX1 cmluZyAxIGNtLiAgVGhlIG X4K4uutL8sKU8mnvnjxgYt cyBpbmtlZCBpbiBibGFjay 5zZFFgBQZmhROkfC4seaEl faJ1bhgqKLR6YFInZO1rCL JkwYKgaVP4JEAdJG18vNFe oJtphI8hn55uARHiq0WfbM RlLiBccGFyfQ== [employer] Work Phone: Pathology report final diagnosis Narrative g3duaXDjSJBgrORuIJivZB zxfzNwNKDyfAZvC2Qfsocw CIxjYY5hCC7dyDguyMXstF OsXJPmLjCec7fyn908gNYh p6pbTNIQDJbrRYVUQYb0fI njE40hx9I1VjqaO30ulUFb BCS4CNLeRTGjpLEmFVQzHN H6EDAypWBuR8vhDSVnML3b uxiqMMasRHdcCJBdzLV0RJ ChdWCmG6DfKZKpLOvsHGAf zxj1RaBrHx2xwLRdoPcaJS xwYXJkXHBsYWluXGZzMjBc cPFeDRSbrU1kAQepCmSvb5 NqWTSce8IlbLJroHb5SWMm cdo8COEjJvTSl6BclqP5NN O9mrQds95eoDxgCRyjStRh SD88qZJ7LTKqOsRuNUnviN Ndz7C2IS3xwXTsA0IjeUCt VSIpgS9fqUBejUEovA== [employer] Work Phone: [employer] Work Phone: No Panel Informationon 07-11 Type of biopsy: tangential Informed consent: discussed and consent obtained Timeout: patient name, date of , surgical site, and procedure verified Anesthesia: the lesion was anesthetized in a standard fashion Anesthetic: 1% lidocaine w/ epinephrine 1-100,000 buffered w/ 8.4% NaHCO3 Instrument used: DermaBlade Outcome: patient tolerated procedure well Post-procedure details: wound care instructions given [facility] Office Visiton 07-11-2024 Follow-up visit [id number] Yessi Hatch 1945 [facility] Provider Department Center 07/11/2024 05738-MCGQGEORGINA CONRAD [facility] [place] None No family history on file Level of Service:42369 NM OFFICE/OUTPATIENT NEW MODERATE MDM 45 MINUTES (25) Reason for Visit and Comments: Skin Lesion [[id number]] - MEDICAL APPLIANCE MAKER (LMS) Normal [facility] PATINSon 07-11-2024 [facility] [address] Rx: Efudex (fluorouracil) Cream Apply [...] does not stop, call our office at [phone]. 6. The wound should improve daily. If [...] of the results in about [address] [facility] Progress Noteon 07-11-2024 Progress Note DATE OF SERVICE: 07/11/2024 PATIENT NAME: Yessi Hatch : 1945 AGE: 79 y.o. CLINIC NUMBER: [id number] Visit type: New Chief Complaint Patient presents with Skin Lesion MEDICAL APPLIANCE MAKER (LMS) Subjective HISTORY OF PRESENT ILLNESS: This is a 79 y.o. male who presents for evaluation of spots on the scalp, face, neck and L ear x over 1 year. Pt states the lesions are scaly and bleed at time. Pt admits to picking at the lesion on the ear. Pt h/o numerous BCC and SCC. He was seeing a Water Resource Engineer in [place] at [facility] but he retired a few years ago. [...] if better. He sees Dr. Shah in [place] twice a year. History of pacemaker/ defibrillator? No History of HIV/ Hep C? No Allergies to Lidocaine, Epinephrine, Latex or Adhesive? 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 Excessive sun exposure: Yes Used tanning [...] of uncertain behavior of skin Left [place] 1.5cm hemorrhagic nodule Skin Biopsy Type of [...] Moore MD 07/11/24 7:08 AM REFERRING MD: [facility] Absolute lymphocyte countOrd ered By: Coco Shah on 02-21-2024 Lymphocytes Auto (Unsp spec) [#/Vol] 1.27 10*3/uL 0.83-4.51 [facility] Automated lymphocyte count a s percentage of total leukocytesOrdered By: Coco Shah on 02-21-2024 Lymphocytes/100 WBC Auto (Unsp spec) 23.5 % 19-41 [facility] Basophil percentageOrdered B y: Coco Shah on 02-21-2024 Basophils/100 WBC (Bld) 0.9 % 0-1 [facility] Eosinophils/100 WBC (Bld) 10.4 % 0-5 [facility] Hemoglobin (Bld) [Mass/Vol] 12.7 g/dL 13.0-16.5 [facility] Monocytes/100 WBC (Bld) 14.2 % 0-10 [facility] Neutrophils (Bld) [#/Vol] 2.7 10*3/uL 2.0-7.7 [facility] Neutrophils/100 WBC (Bld) 50.4 % 47-70 [facility] WBC (Bld) [#/Vol] 5.4 10*3/uL 4.4-11.0 [facility] Determination of erythrocyte mean corpuscular volume (MCV)Ordered By: Coco Shah on 02-21-2024 MCV (RBC) [Entitic vol] 95.6 fL 80-94 [facility] Erythrocyte distribution wid th ratioOrdered By: Coco Shah on 02-21-2024 Erythrocyte distribution width (RBC) [Ratio] 14.7 % 11.6-14.6 [facility] Erythrocyte distribution wid th standard deviationOrdered By: Coco Shah on 02-21-2024 Erythrocyte distribution width (RBC) [Entitic vol] 50.7 fL 35.1-43.9 [facility] Erythrocyte sedimentation ra teOrdered By: Coco Shah on 02-21-2024 ESR (Bld) [Velocity] 3 mm/h 0-20 [facility] Hematocrit Auto (Bld) [Volum e fraction]Ordered By: Coco Shah on 02-21-2024 Hematocrit (Bld) [Volume fraction] 37.2 % 40-54 [facility] Immature granulocytes/100 WB C Auto (Bld)Ordered By: Coco Shah on 02-21-2024 Immature granulocytes/100 WBC (Bld) 0.600 % 0.0-0.9 [facility] Comment on above: IG% - Immature Granu locytes (promyelocytes, myelocytes and metamyelocytes) > 1% indicates that a LEFT SHIFT is Present. Laboratory - Chemistry and C hemistry - challengeOrdered By: Coco Shah on 02-21-2024 ALT [Catalytic activity/Vol] 33 U/L 16-61 [facility] Laboratory - Hematology and Cell countsOrdered By: Coco Shah on 02-21-2024 MCH (RBC) [Entitic mass] 32.6 pg 27.0-32.0 [facility] MCHC (RBC) [Mass/Vol] 34.1 g/dL 32-36 [facility] Nucleated RBC/100 WBC (Bld) [Ratio] 0 % 0-5 [facility] Platelet mean volume (Bld) [Entitic vol] 9.7 fL 6.2-12.0 [facility] Platelets (Bld) [#/Vol] 218 10*3/uL 150-450 [facility] No Panel InformationOrdered By: Coco Shah on 02-21-2024 C-Reactive Protein Extended Range < 2.90 mg/L 0.0-3.0 [facility] Comment on above: C-Reactive Protein ( CRP) provides useful information for thediagnosis, therapy and monitoring of inflammatory processesand associated diseases. For the evaluation of Relative Riskfor Cardiovascular Disease, a High Sensitivity CRP (HSCRP)should be ordered. Estimated GFR (MDRD) Amer 62 mL/min >60 [facility] Comment on above: GFR Calc Estimated GFR (MDRD) Non-Af Amer 51 mL/min >60 [facility] Comment on above: Non- GFR Calc RBC Auto (Bld) [#/Vol]Ordere d By: Coco Shah on 02-21-2024 RBC (Bld) [#/Vol] 3.89 10*6/uL 4.6-6.2 [facility] Serum or plasma creatinine m easurement (mass/volume)Ordered By: Coco Shah on 02-21-2024 Creatinine [Mass/Vol] 1.42 mg/dL 0.70-1.30 [facility] Comment on above: The validity of the calculated GFR & GFRAA in patients over 70 years has not been determined. Clinical correlation is essential. Thin prep Papanicolaou smear with manual screeningOrdered By: Coco Shah on 02-21-2024 Thin prep Papanicolaou smear with manual screening 27 U/L 15-37 [facility] Bacteria identified Cx Nom ( Wound)Ordered By: Patrick Rojas on 02-15-2024 Wound Culture Staphylococcus aureus [facility] Gram stain for investigation of transfusion reactionOrdered By: Patrick Rojas on 02-15-2024 Microscopic observation Gram stain Nom (Unsp spec) [facility] Absolute lymphocyte countOrd ered By: Zach Turner on 11-22-2023 Lymphocytes Auto (Unsp spec) [#/Vol] 1.29 10*3/uL 0.83-4.51 [facility] Basophil percentageOrdered B y: Zach Turner on 11-22-2023 Basophils/100 WBC (Bld) 0.5 % 0-1 [facility] Bilirubin [Mass/Vol] 1.10 mg/dL 0.20-1.00 [facility] Comment on above: For patients on eltr ombopag therapy, use of Dimension [place] TBIL is not recommended. Chloride [Moles/Vol] 106 mmol/L 98-107 [facility] Eosinophils/100 WBC (Bld) 7.5 % 0-5 [facility] Glucose [Mass/Vol] 144 mg/dL 74-106 [facility] Comment on above: Fasting Glucose resu lt greater than or equal to 126 mg/dL suggests DIABETES MELLITUS per A.D.A. criteria. Neutrophils (Bld) [#/Vol] 5.1 10*3/uL 2.0-7.7 [facility] Neutrophils/100 WBC (Bld) 66.1 % 47-70 [facility] Potassium [Moles/Vol] 3.9 mmol/L 3.5-5.1 [facility] Protein [Mass/Vol] 7.3 g/dL 6.4-8.2 [facility] Sodium [Moles/Vol] 139 mmol/L 136-145 [facility] WBC (Bld) [#/Vol] 7.7 10*3/uL 4.4-11.0 [facility] [facility] erythrocytes count (nu mber/volume)Ordered By: Zach Turner on 11-22-2023 RBC (Bld) [#/Vol] 4.90 10*6/uL 4.6-6.2 [facility] Blood hemoglobin measurement (mass/volume)Ordered By: Zach Turner on 11-22-2023 Hemoglobin (Bld) [Mass/Vol] 14.9 g/dL 13.0-16.5 [facility] Blood lymphocytes/100 leukoc ytesOrdered By: Zach Turner on 11-22-2023 Lymphocytes/100 WBC (Bld) 16.7 % 19-41 [facility] Blood monocytes/100 leukocyt esOrdered By: Zach Turner on 11-22-2023 Monocytes/100 WBC (Bld) 8.4 % 0-10 [facility] Blood platelet mean volumeOr dered By: Zach Turner on 11-22-2023 Platelet mean volume (Bld) [Entitic vol] 10.4 fL 6.2-12.0 [facility] Determination of erythrocyte mean corpuscular volume (MCV)Ordered By: Zach Turner on 11-22-2023 MCV (RBC) [Entitic vol] 91.8 fL 80-94 [facility] Erythrocyte sedimentation ra teOrdered By: Zach Turner on 11-22-2023 ESR (Bld) [Velocity] 2 mm/h 0-20 [facility] Hematocrit Auto (Bld) [Volum e fraction]Ordered By: Zach Turner on 11-22-2023 Hematocrit (Bld) [Volume fraction] 45.0 % 40-54 [facility] Laboratory - Chemistry and C hemistry - challengeOrdered By: Zach Turner on 11-22-2023 ALP [Catalytic activity/Vol] 77 U/L 45-117 [facility] ALT [Catalytic activity/Vol] 54 U/L 16-61 [facility] CO2 [Moles/Vol] 29.0 mmol/L 21.0-32.0 [facility] Globulin (S) [Mass/Vol] 3.7 g/dL 2.2-4.2 [facility] Urea nitrogen/Creatinine [Mass ratio] 16.5 mg/mg 10-20 [facility] Laboratory - Hematology and Cell countsOrdered By: Zach Turner on 11-22-2023 Erythrocyte distribution width (RBC) [Entitic vol] 45.8 fL 35.1-43.9 [facility] Erythrocyte distribution width (RBC) [Ratio] 13.6 % 11.6-14.6 [facility] Immature granulocytes/100 WBC (Bld) 0.800 % 0.0-0.9 [facility] Comment on above: IG% - Immature Granu locytes (promyelocytes, myelocytes and metamyelocytes) > 1% indicates that a LEFT SHIFT is Present. MCH (RBC) [Entitic mass] 30.4 pg 27.0-32.0 [facility] Nucleated RBC/100 WBC (Bld) [Ratio] 0 % 0-5 [facility] MCHC Auto (RBC) [Mass/Vol]Or dered By: Zach Turner on 11-22-2023 MCHC (RBC) [Mass/Vol] 33.1 g/dL 32-36 [facility] No Panel InformationOrdered By: Zach Turner on 11-22-2023 Estimated GFR (MDRD) Amer 63 mL/min >60 [facility] Comment on above: GFR Calc Estimated GFR (MDRD) Non-Af Amer 52 mL/min >60 [facility] Comment on above: Non- GFR Calc Urine Microalbumin/Creatinine Ratio 235.6 mg/g CRE <30 [facility] Platelets bldOrdered By: Ksenia Turner on 11-22-2023 Platelets (Bld) [#/Vol] 189 10*3/uL 150-450 [facility] Serum or plasma C reactive p rotein measurement (mass/volume)Ordered By: Zach Turner on 11-22-2023 CRP [Mass/Vol] mg/L 0.0-3.0 [facility] Comment on above: C-Reactive Protein ( CRP) provides useful information for thediagnosis, therapy and monitoring of inflammatory processesand associated diseases. For the evaluation of Relative Riskfor Cardiovascular Disease, a High Sensitivity CRP (HSCRP)should be ordered. Serum or plasma albumin amadou urement (mass/volume)Ordered By: Zach Turner on 11-22-2023 Albumin [Mass/Vol] 3.6 g/dL 3.2-5.0 [facility] Serum or plasma albumin/glob ulin mass ratioOrdered By: Zach Turner on 11-22-2023 Albumin/Globulin [Mass ratio] 1.0 {ratio} 0.9-2.4 [facility] Serum or plasma calcium amadou urement (mass/volume)Ordered By: Zach Turner on 11-22-2023 Calcium [Mass/Vol] 9.5 mg/dL 8.5-10.1 [facility] Serum or plasma creatinine m easurement (mass/volume)Ordered By: Zach Turner on 11-22-2023 Creatinine [Mass/Vol] 1.39 mg/dL 0.70-1.30 [facility] Comment on above: The validity of the calculated GFR & GFRAA in patients over 70 years has not been determined. Clinical correlation is essential. Serum or plasma urea nitroge n measurement (mass/volume)Ordered By: Zach Turner on 11-22-2023 Urea nitrogen [Mass/Vol] 23 mg/dL 7-18 [facility] Thin prep Papanicolaou smear with manual screeningOrdered By: Zach Turner on 11-22-2023 Thin prep Papanicolaou smear with manual screening 34 U/L 15-37 [facility] Thin prep Papanicolaou smear with manual screening 4 5-15 [facility] Thin prep Papanicolaou smear with manual screening 344.0 mg/L NO RANGE EST. [facility] Urine creatinine measurement (mass/volume)Ordered By: Zach Turner on 11-22-2023 Creatinine (U) [Mass/Vol] 146.00 mg/dL NO RANGE EST. [facility] Whole blood hemoglobin A1c/t otal hemoglobin ratio (mass fraction)Ordered By: Zach Turner on 11-22-2023 HbA1c (Bld) [Mass fraction] 7.0 % 3.8-5.6 [facility] Comment on above: Normal < 5.7 % Predi abetic 5.7 - 6.4 % Diabetic >or= 6.5 % Please note range changes. Absolute lymphocyte countOrd ered By: Coco Shah on 08-22-2023 Lymphocytes Auto (Unsp spec) [#/Vol] 2.02 10*3/uL 0.83-4.51 [facility] Basophil percentageOrdered B y: Coco Shah on 08-22-2023 Basophils/100 WBC (Bld) 0.9 % 0-1 [facility] Eosinophils/100 WBC (Bld) 8.8 % 0-5 [facility] Neutrophils (Bld) [#/Vol] 4.1 10*3/uL 2.0-7.7 [facility] Neutrophils/100 WBC (Bld) 52.6 % 47-70 [facility] WBC (Bld) [#/Vol] 7.8 10*3/uL 4.4-11.0 [facility] Blood erythrocytes count (nu mber/volume)Ordered By: Coco Shah on 08-22-2023 RBC (Bld) [#/Vol] 3.87 10*6/uL 4.6-6.2 [facility] Blood hemoglobin measurement (mass/volume)Ordered By: Coco Shah on 08-22-2023 Hemoglobin (Bld) [Mass/Vol] 13.2 g/dL 13.0-16.5 [facility] Blood lymphocytes/100 leukoc ytesOrdered By: Coco Shah on 08-22-2023 Lymphocytes/100 WBC (Bld) 26.0 % 19-41 [facility] Blood monocytes/100 leukocyt esOrdered By: Coco Shah on 08-22-2023 Monocytes/100 WBC (Bld) 11.3 % 0-10 [facility] Blood platelet mean volumeOr dered By: Coco Shah on 08-22-2023 Platelet mean volume (Bld) [Entitic vol] 10.4 fL 6.2-12.0 [facility] Determination of erythrocyte mean corpuscular volume (MCV)Ordered By: Coco Shah on 08-22-2023 MCV (RBC) [Entitic vol] 98.4 fL 80-94 [facility] Erythrocyte sedimentation ra teOrdered By: Coco Shah on 08-22-2023 ESR (Bld) [Velocity] 10 mm/h 0-20 [facility] Hematocrit Auto (Bld) [Volum e fraction]Ordered By: Coco Shah on 08-22-2023 Hematocrit (Bld) [Volume fraction] 38.1 % 40-54 [facility] Laboratory - Chemistry and C hemistry - challengeOrdered By: Coco Shah on 08-22-2023 ALT [Catalytic activity/Vol] 57 U/L 16-61 [facility] Laboratory - Hematology and Cell countsOrdered By: Coco Shah on 08-22-2023 Erythrocyte distribution width (RBC) [Entitic vol] 49.7 fL 35.1-43.9 [facility] Erythrocyte distribution width (RBC) [Ratio] 14.6 % 11.6-14.6 [facility] Immature granulocytes/100 WBC (Bld) 0.400 % 0.0-0.9 [facility] Comment on above: IG% - Immature Granu locytes (promyelocytes, myelocytes and metamyelocytes) > 1% indicates that a LEFT SHIFT is Present. MCH (RBC) [Entitic mass] 34.1 pg 27.0-32.0 [facility] Nucleated RBC/100 WBC (Bld) [Ratio] 0 % 0-5 [facility] MCHC Auto (RBC) [Mass/Vol]Or dered By: Coco Shah on 08-22-2023 MCHC (RBC) [Mass/Vol] 34.6 g/dL 32-36 [facility] No Panel InformationOrdered By: Coco Shah on 08-22-2023 Estimated GFR (MDRD) Amer 73 mL/min >60 [facility] Comment on above: GFR Calc Estimated GFR (MDRD) Non-Af Amer 60 mL/min >60 [facility] Comment on above: Non- GFR Calc Platelets bldOrdered By: Santino Shah on 08-22-2023 Platelets (Bld) [#/Vol] 303 10*3/uL 150-450 [facility] Serum or plasma C reactive p rotein measurement (mass/volume)Ordered By: Coco Shah on 08-22-2023 CRP [Mass/Vol] mg/L 0.0-3.0 [facility] Comment on above: C-Reactive Protein ( CRP) provides useful information for thediagnosis, therapy and monitoring of inflammatory processesand associated diseases. For the evaluation of Relative Riskfor Cardiovascular Disease, a High Sensitivity CRP (HSCRP)should be ordered. Serum or plasma creatinine m easurement (mass/volume)Ordered By: Coco Shah on 08-22-2023 Creatinine [Mass/Vol] 1.23 mg/dL 0.70-1.30 [facility] Comment on above: The validity of the calculated GFR & GFRAA in patients over 70 years has not been determined. Clinical correlation is essential. Thin prep Papanicolaou smear with manual screeningOrdered By: Coco Shah on 08-22-2023 Thin prep Papanicolaou smear with manual screening 36 U/L 15-37 [facility] Bacteria identified Cx Nom ( Wound)Ordered By: Patrick Rojas on 05-10-2023 Wound Culture Staphylococcus lugdunensis [facility] Wound Culture Staphylococcus aureus [facility] Gram stain for investigation of transfusion reactionOrdered By: Patrick Rojas on 05-10-2023 Microscopic observation Gram stain Nom (Unsp spec) [facility] Basophil percentageOrdered B y: Dr. Turner on 05-04-2023 Chloride [Moles/Vol] 110 mmol/L 98-107 [facility] Glucose [Mass/Vol] 186 mg/dL 74-106 [facility] Comment on above: Fasting Glucose resu lt greater than or equal to 126 mg/dL suggests DIABETES MELLITUS per A.D.A. criteria. Potassium [Moles/Vol] 4.1 mmol/L 3.5-5.1 [facility] Sodium [Moles/Vol] 141 mmol/L 136-145 [facility] Laboratory - Chemistry and C hemistry - challengeOrdered By: Dr. Turner on 05-04-2023 CO2 [Moles/Vol] 28.0 mmol/L 21.0-32.0 [facility] Urea nitrogen/Creatinine [Mass ratio] 23.5 mg/mg 10-20 [facility] No Panel InformationOrdered By: Dr. Turner on 05-04-2023 Estimated GFR (MDRD) Amer 79 mL/min >60 [facility] Comment on above: GFR Calc Estimated GFR (MDRD) Non-Af Amer 65 mL/min >60 [facility] Comment on above: Non- GFR Calc Serum or plasma calcium amadou urement (mass/volume)Ordered By: Dr. Turner on 05-04-2023 Calcium [Mass/Vol] 9.2 mg/dL 8.5-10.1 [facility] Serum or plasma creatinine m easurement (mass/volume)Ordered By: Dr. Turner on 05-04-2023 Creatinine [Mass/Vol] 1.15 mg/dL 0.70-1.30 [facility] Comment on above: The validity of the calculated GFR & GFRAA in patients over 70 years has not been determined. Clinical correlation is essential. Serum or plasma urea nitroge n measurement (mass/volume)Ordered By: Dr. Turner on 05-04-2023 Urea nitrogen [Mass/Vol] 27 mg/dL 7-18 [facility] Thin prep Papanicolaou smear with manual screeningOrdered By: Dr. Turner on 05-04-2023 Thin prep Papanicolaou smear with manual screening 3 5-15 [facility] Absolute lymphocyte countOrd ered By: Dr. Hernández on 04-26-2023 Lymphocytes Auto (Unsp spec) [#/Vol] 1.68 10*3/uL 0.83-4.51 [facility] Basophil percentageOrdered B y: Dr. Hernández on 04-26-2023 Basophils/100 WBC (Bld) 0.9 % 0-1 [facility] Eosinophils/100 WBC (Bld) 7.0 % 0-5 [facility] Neutrophils (Bld) [#/Vol] 4.8 10*3/uL 2.0-7.7 [facility] Neutrophils/100 WBC (Bld) 60.6 % 47-70 [facility] WBC (Bld) [#/Vol] 7.9 10*3/uL 4.4-11.0 [facility] Blood erythrocytes count (nu mber/volume)Ordered By: Dr. Hernández on 04-26-2023 RBC (Bld) [#/Vol] 4.10 10*6/uL 4.6-6.2 [facility] Blood hemoglobin measurement (mass/volume)Ordered By: Dr. Hernández on 04-26-2023 Hemoglobin (Bld) [Mass/Vol] 13.4 g/dL 13.0-16.5 [facility] Blood lymphocytes/100 leukoc ytesOrdered By: Dr. Hernández on 04-26-2023 Lymphocytes/100 WBC (Bld) 21.3 % 19-41 [facility] Blood monocytes/100 leukocyt esOrdered By: Dr. Hernández on 04-26-2023 Monocytes/100 WBC (Bld) 9.8 % 0-10 [facility] Blood platelet mean volumeOr dered By: Dr. Hernández on 04-26-2023 Platelet mean volume (Bld) [Entitic vol] 10.3 fL 6.2-12.0 [facility] Determination of erythrocyte mean corpuscular volume (MCV)Ordered By: Dr. Hernández on 04-26-2023 MCV (RBC) [Entitic vol] 98.8 fL 80-94 [facility] Erythrocyte sedimentation ra teOrdered By: Dr. Hernández on 04-26-2023 ESR (Bld) [Velocity] 10 mm/h 0-20 [facility] Hematocrit Auto (Bld) [Volum e fraction]Ordered By: Dr. Hernández on 04-26-2023 Hematocrit (Bld) [Volume fraction] 40.5 % 40-54 [facility] Laboratory - Chemistry and C hemistry - challengeOrdered By: Dr. Hernández on 04-26-2023 ALT [Catalytic activity/Vol] 38 U/L 16-61 [facility] Laboratory - Hematology and Cell countsOrdered By: Dr. Hernández on 04-26-2023 Erythrocyte distribution width (RBC) [Entitic vol] 47.6 fL 35.1-43.9 [facility] Erythrocyte distribution width (RBC) [Ratio] 13.4 % 11.6-14.6 [facility] Immature granulocytes/100 WBC (Bld) 0.400 % 0.0-0.9 [facility] Comment on above: IG% - Immature Granu locytes (promyelocytes, myelocytes and metamyelocytes) > 1% indicates that a LEFT SHIFT is Present. MCH (RBC) [Entitic mass] 32.7 pg 27.0-32.0 [facility] Nucleated RBC/100 WBC (Bld) [Ratio] 0 % 0-5 [facility] MCHC Auto (RBC) [Mass/Vol]Or dered By: Dr. Hernández on 04-26-2023 MCHC (RBC) [Mass/Vol] 33.1 g/dL 32-36 [facility] No Panel InformationOrdered By: Dr. Hernández on 04-26-2023 Estimated GFR (MDRD) Amer 56 mL/min >60 [facility] Comment on above: GFR Calc Estimated GFR (MDRD) Non-Af Amer 46 mL/min >60 [facility] Comment on above: Non- GFR Calc Prostate Specific Antigen Total 1.28 ng/mL 0.0-4.0 [facility] Comment on above: This test was perfor med using the TPSA assay method for the[facility] hospital chemistry system. Values obtained with differentassay methods cannot be used interchangably.When changing PSA assays in the course of monitoring apatient, additional sequential testing should be carriedout to confirm baseline values. Platelets bldOrdered By: Dr. Hernández on 04-26-2023 Platelets (Bld) [#/Vol] 317 10*3/uL 150-450 [facility] Serum or plasma C reactive p rotein measurement (mass/volume)Ordered By: Dr. Hernández on 04-26-2023 CRP [Mass/Vol] mg/L 0.0-3.0 [facility] Comment on above: C-Reactive Protein ( CRP) provides useful information for thediagnosis, therapy and monitoring of inflammatory processesand associated diseases. For the evaluation of Relative Riskfor Cardiovascular Disease, a High Sensitivity CRP (HSCRP)should be ordered. Serum or plasma creatinine m easurement (mass/volume)Ordered By: Dr. Hernández on 04-26-2023 Creatinine [Mass/Vol] 1.55 mg/dL 0.70-1.30 [facility] Comment on above: The validity of the calculated GFR & GFRAA in patients over 70 years has not been determined. Clinical correlation is essential. Thin prep Papanicolaou smear with manual screeningOrdered By: Dr. Hernández on 04-26-2023 Thin prep Papanicolaou smear with manual screening 24 U/L 15-37 [facility] Bacteria identified Cx Nom ( Wound)Ordered By: Dr. Rojas on 03-31-2023 Wound Culture Pseudomonas putida [facility] Gram stain for investigation of transfusion reactionOrdered By: Dr. Rojas on 03-30-2023 Microscopic observation Gram stain Nom (Unsp spec) [facility] Bacteria identified Cx Nom ( Wound)Ordered By: Patrick Rojas on 03-29-2023 Wound Culture Pseudomonas putida [facility] Gram stain for investigation of transfusion reactionOrdered By: Patrick Rojas on 03-29-2023 Microscopic observation Gram stain Nom (Unsp spec) [facility] OPERATIVE PROCEDURESon 03-28 OPERATIVE PROCEDURES [facility] OPERATIVE REPORT NAME ACCOUNT SEX AGE ADMIT DISCHARGE PT MED. RECORD# NUMBER DATE DATE TYPE LESLY, [id number] M 77 03/04/23 2 YESSI [id number] ROOM: [facility] DATE OF : 1945 DICTATING PHYSICIAN: Patrick Rojas DATE OF SURGERY: March 04, 2023 SURGEON: Patrick Rojas DPM [employer] OFF[employer]ER: None. ANESTHESIOLOGIST: Braxton Ashby CRNA ANESTHETIC: MAC [...] Patrick Rojas DPM 03/04/23 09:04 JOB #: [id number] Transcribed By: am Page 2 of 3 YESSI HATCH Operative Report YESSI HATCH : 1945 03/04/23 10:09 Electronically signed by: E-SIGN ALEXANDREA (more content not included)... Normal [facility] Final Surgical Pathology Rep sadiq 03-09-2023 Final Surgical Pathology Report . Pathology Reports Accession: Collected Date/Time: Received Date/Time: Pathologist: [id number] 03/04/2023 12:00 EDT 03/07/2023 10:00 EDT PIETER MAGANA MD Final Surgical Pathology Report DIAGNOSIS: A. LEFT FIRST TOE, AMPUTATION SPECIMEN: - SKIN AND SOFT TISSUE OF RESECTION MARGINS VIABLE. B. LEFT SECOND TOE, AMPUTATION SPECIMEN: - CUTANEOUS ULCERATION IDENTIFIED. SKIN AND SOFT TISSUE RESECTION MARGIN APPEAR VIABLE COMMENT: [facility] - [id number] CLINICAL INFORMATION: NON-PRESSURE CHRONIC ULCER OF OTHER [...] Electronically Signed by Pathology Report verified by [facility] PIETER MAGANA Sign out Date: 03/09/2023 10:52 Performing Lab: [facility], [address] [place] [address] Pathology Dept Normal [facility] ([facility]) BUNon 03-03-2023 Urea nitrogen [Mass/Vol] 32 mg/dL High 7 - 18 [facility] Comment on above: Performed By: #### [id number] #### [facility],[address] [place] [address] CHEST 2 VIEWSon 03-03-2023 CHEST [address] [address] Patient: YESSI HATCH Phone#: : 1945 Age: 77 Gender: M Pt. Type: Out Account: [id number] Location: Ordering: PATRICK ROJAS Exam Date: 03/03/2023/14:45 Family Phys: ZACH TURNER Charge Code: 169731 Physician: Bond Order #: [id number] Dose#: PROCEDURE: X-RAY CHEST 2 VIEWS COMPARISON: [...] Ramirez MD on 03/03/2023 at 15:25 Normal [facility] GLUCOSEon 03-03-2023 Glucose [Mass/Vol] 167 mg/dL High 74 - 106 [facility] Comment on above: Performed By: #### 2 [id number] #### [place] [address] HEMATOCRITon 03-03-2023 Hematocrit (Bld) [Volume fraction] 40.4 % Normal 40.0 - 52.0 [facility] Comment on above: Performed By: #### 2 [id number] #### [place] [address] HEMOGLOBINon 03-03-2023 Hemoglobin (Bld) [Mass/Vol] 13.7 g/dL Normal 13.0 - 17.5 [facility] Comment on above: Performed By: #### 2 [id number] #### [facility],[address] [place] [address] Absolute lymphocyte countOrd ered By: Dr. Hendricks on 02-26-2023 Lymphocytes Auto (Unsp spec) [#/Vol] 1.78 10*3/uL 0.83-4.51 [facility] Basophil percentageOrdered B y: Dr. Hendricks on 02-26-2023 Basophils/100 WBC (Bld) 0.3 % 0-1 [facility] Chloride [Moles/Vol] 103 mmol/L 98-107 [facility] Eosinophils/100 WBC (Bld) 3.1 % 0-5 [facility] Glucose [Mass/Vol] 156 mg/dL 74-106 [facility] Comment on above: Fasting Glucose resu lt greater than or equal to 126 mg/dL suggests DIABETES MELLITUS per A.D.A. criteria. Neutrophils (Bld) [#/Vol] 6.2 10*3/uL 2.0-7.7 [facility] Neutrophils/100 WBC (Bld) 69.1 % 47-70 [facility] Potassium [Moles/Vol] 4.2 mmol/L 3.5-5.1 [facility] Sodium [Moles/Vol] 135 mmol/L 136-145 [facility] WBC (Bld) [#/Vol] 9.0 10*3/uL 4.4-11.0 [facility] Blood erythrocytes count (nu mber/volume)Ordered By: Dr. Hendricks on 02-26-2023 RBC (Bld) [#/Vol] 4.49 10*6/uL 4.6-6.2 [facility] Blood hemoglobin measurement (mass/volume)Ordered By: Dr. Hendricks on 02-26-2023 Hemoglobin (Bld) [Mass/Vol] 14.4 g/dL 13.0-16.5 [facility] Blood lymphocytes/100 leukoc ytesOrdered By: Dr. Hendricks on 02-26-2023 Lymphocytes/100 WBC (Bld) 19.7 % 19-41 [facility] Blood monocytes/100 leukocyt esOrdered By: Dr. Hendricks on 02-26-2023 Monocytes/100 WBC (Bld) 7.2 % 0-10 [facility] Blood platelet mean volumeOr dered By: Dr. Hendricks on 02-26-2023 Platelet mean volume (Bld) [Entitic vol] 10.6 fL 6.2-12.0 [facility] Determination of erythrocyte mean corpuscular volume (MCV)Ordered By: Dr. Hendricks on 02-26-2023 MCV (RBC) [Entitic vol] 97.6 fL 80-94 [facility] Hematocrit Auto (Bld) [Volum e fraction]Ordered By: Dr. Hendricks on 04-15-2023 Hematocrit (Bld) [Volume fraction] 43.8 % 40-54 [facility] Laboratory - Chemistry and C hemistry - challengeOrdered By: Dr. Hendricks on 02-26-2023 CO2 [Moles/Vol] 30.0 mmol/L 21.0-32.0 [facility] Urea nitrogen/Creatinine [Mass ratio] 18.0 mg/mg 10-20 [facility] Laboratory - Hematology and Cell countsOrdered By: Dr. Hendricks on 02-26-2023 Erythrocyte distribution width (RBC) [Entitic vol] 50.3 fL 35.1-43.9 [facility] Erythrocyte distribution width (RBC) [Ratio] 14.2 % 11.6-14.6 [facility] Immature granulocytes/100 WBC (Bld) 0.600 % 0.0-0.9 [facility] Comment on above: IG% - Immature Granu locytes (promyelocytes, myelocytes and metamyelocytes) > 1% indicates that a LEFT SHIFT is Present. MCH (RBC) [Entitic mass] 32.1 pg 27.0-32.0 [facility] Nucleated RBC/100 WBC (Bld) [Ratio] 0 % 0-5 [facility] MCHC Auto (RBC) [Mass/Vol]Or dered By: Dr. Hendricks on 02-26-2023 MCHC (RBC) [Mass/Vol] 32.9 g/dL 32-36 [facility] No Panel InformationOrdered By: Dr. Hendricks on 02-26-2023 Estimated Creatinine Clearance Calc 51.36 ml/min [facility] Estimated GFR (MDRD) Amer 70 mL/min >60 [facility] Comment on above: GFR Calc Estimated GFR (MDRD) Non-Af Amer 58 mL/min >60 [facility] Comment on above: Non- GFR Calc Platelets bldOrdered By: Dr. Hendricks on 02-26-2023 Platelets (Bld) [#/Vol] 222 10*3/uL 150-450 [facility] Serum or plasma calcium amadou urement (mass/volume)Ordered By: Dr. Hendricks on 02-26-2023 Calcium [Mass/Vol] 9.8 mg/dL 8.5-10.1 [facility] Serum or plasma creatinine m easurement (mass/volume)Ordered By: Dr. Hendricks on 02-26-2023 Creatinine [Mass/Vol] 1.28 mg/dL 0.70-1.30 [facility] Comment on above: The validity of the calculated GFR & GFRAA in patients over 70 years has not been determined. Clinical correlation is essential. Serum or plasma urea nitroge n measurement (mass/volume)Ordered By: Dr. Hendricks on 02-26-2023 Urea nitrogen [Mass/Vol] 23 mg/dL 7-18 [facility] Thin prep Papanicolaou smear with manual screeningOrdered By: Dr. Hendricks on 02-26-2023 Thin prep Papanicolaou smear with manual screening 2 5-15 [facility] Whole blood hemoglobin A1c/t otal hemoglobin ratio (mass fraction)Ordered By: Dr. Hendricks on 02-26-2023 HbA1c (Bld) [Mass fraction] 7.5 % 3.8-5.6 [facility] Comment on above: Normal < 5.7 % Predi abetic 5.7 - 6.4 % Diabetic >or= 6.5 % Please note range changes. Absolute lymphocyte countOrd ered By: Dr. White on 02-25-2023 Lymphocytes Auto (Unsp spec) [#/Vol] 1.54 10*3/uL 0.83-4.51 [facility] Basophil percentageOrdered B y: Dr. White on 02-25-2023 Basophils/100 WBC (Bld) 0.2 % 0-1 [facility] Chloride [Moles/Vol] 102 mmol/L 98-107 [facility] Eosinophils/100 WBC (Bld) 2.2 % 0-5 [facility] Glucose [Mass/Vol] 155 mg/dL 74-106 [facility] Comment on above: Fasting Glucose resu lt greater than or equal to 126 mg/dL suggests DIABETES MELLITUS per A.D.A. criteria. Neutrophils (Bld) [#/Vol] 10.5 10*3/uL 2.0-7.7 [facility] Neutrophils/100 WBC (Bld) 76.7 % 47-70 [facility] Potassium [Moles/Vol] 4.0 mmol/L 3.5-5.1 [facility] Sodium [Moles/Vol] 136 mmol/L 136-145 [facility] WBC (Bld) [#/Vol] 13.7 10*3/uL 4.4-11.0 [facility] Blood erythrocytes count (nu mber/volume)Ordered By: Dr. White on 02-25-2023 RBC (Bld) [#/Vol] 4.45 10*6/uL 4.6-6.2 [facility] Blood hemoglobin measurement (mass/volume)Ordered By: Dr. White on 02-25-2023 Hemoglobin (Bld) [Mass/Vol] 14.1 g/dL 13.0-16.5 [facility] Blood lymphocytes/100 leukoc ytesOrdered By: Dr. White on 02-25-2023 Lymphocytes/100 WBC (Bld) 11.3 % 19-41 [facility] Blood monocytes/100 leukocyt esOrdered By: Dr. White on 02-25-2023 Monocytes/100 WBC (Bld) 8.9 % 0-10 [facility] Blood platelet mean volumeOr dered By: Dr. White on 02-25-2023 Platelet mean volume (Bld) [Entitic vol] 10.6 fL 6.2-12.0 [facility] Determination of erythrocyte mean corpuscular volume (MCV)Ordered By: Dr. White on 02-25-2023 MCV (RBC) [Entitic vol] 96.4 fL 80-94 [facility] Erythrocyte sedimentation ra teOrdered By: Dr. White on 02-25-2023 ESR (Bld) [Velocity] 6 mm/h 0-20 [facility] Glucose Glucometer (BldC) [M ass/Vol]Ordered By: Dr. Hendricks on 02-25-2023 Glucose [Mass/Vol] 171 mg/dL 74-106 [facility] Comment on above: MANAGEMENT OF PATIEN T CARE PER NURSING PROTOCOL Hematocrit Auto (Bld) [Volum e fraction]Ordered By: Dr. White on 02-25-2023 Hematocrit (Bld) [Volume fraction] 42.9 % 40-54 [facility] Laboratory - Chemistry and C hemistry - challengeOrdered By: Dr. White on 02-25-2023 CO2 [Moles/Vol] 31.0 mmol/L 21.0-32.0 [facility] Urea nitrogen/Creatinine [Mass ratio] 20.6 mg/mg 10-20 [facility] Laboratory - Hematology and Cell countsOrdered By: Dr. White on 02-25-2023 Erythrocyte distribution width (RBC) [Entitic vol] 49.5 fL 35.1-43.9 [facility] Erythrocyte distribution width (RBC) [Ratio] 14.1 % 11.6-14.6 [facility] Immature granulocytes/100 WBC (Bld) 0.700 % 0.0-0.9 [facility] Comment on above: IG% - Immature Granu locytes (promyelocytes, myelocytes and metamyelocytes) > 1% indicates that a LEFT SHIFT is Present. MCH (RBC) [Entitic mass] 31.7 pg 27.0-32.0 [facility] Nucleated RBC/100 WBC (Bld) [Ratio] 0 % 0-5 [facility] MCHC Auto (RBC) [Mass/Vol]Or dered By: Dr. White on 02-25-2023 MCHC (RBC) [Mass/Vol] 32.9 g/dL 32-36 [facility] No Panel InformationOrdered By: Dr. White on 02-25-2023 Estimated Creatinine Clearance Calc 50.19 ml/min [facility] Estimated GFR (MDRD) Amer 68 mL/min >60 [facility] Comment on above: GFR Calc Estimated GFR (MDRD) Non-Af Amer 56 mL/min >60 [facility] Comment on above: Non- GFR Calc Platelets bldOrdered By: Dr. White on 02-25-2023 Platelets (Bld) [#/Vol] 229 10*3/uL 150-450 [facility] Serum or plasma C reactive p rotein measurement (mass/volume)Ordered By: Dr. White on 02-25-2023 CRP [Mass/Vol] 50.30 mg/L 0.0-3.0 [facility] Comment on above: C-Reactive Protein ( CRP) provides useful information for thediagnosis, therapy and monitoring of inflammatory processesand associated diseases. For the evaluation of Relative Riskfor Cardiovascular Disease, a High Sensitivity CRP (HSCRP)should be ordered. Serum or plasma calcium amadou urement (mass/volume)Ordered By: Dr. White on 02-25-2023 Calcium [Mass/Vol] 10.0 mg/dL 8.5-10.1 [facility] Serum or plasma creatinine m easurement (mass/volume)Ordered By: Dr. White on 02-25-2023 Creatinine [Mass/Vol] 1.31 mg/dL 0.70-1.30 [facility] Comment on above: The validity of the calculated GFR & GFRAA in patients over 70 years has not been determined. Clinical correlation is essential. Serum or plasma urea nitroge n measurement (mass/volume)Ordered By: Dr. White on 02-25-2023 Urea nitrogen [Mass/Vol] 27 mg/dL 7-18 [facility] Thin prep Papanicolaou smear with manual screeningOrdered By: Dr. White on 02-25-2023 Thin prep Papanicolaou smear with manual screening 3 5-15 [facility] Bacteria identified Cx Nom ( Wound)Ordered By: Dr. Rojas on 02-24-2023 Wound Culture Enterococcus faecalis [facility] Gram stain for investigation of transfusion reactionOrdered By: Dr. Rojas on 02-24-2023 Microscopic observation Gram stain Nom (Unsp spec) [facility] Bacteria identified Cx Nom ( Wound)Ordered By: Patrick Rojas on 02-22-2023 Wound Culture Enterococcus faecalis [facility] Gram stain for investigation of transfusion reactionOrdered By: Patrick Rojas on 02-22-2023 Microscopic observation Gram stain Nom (Unsp spec) [facility] Absolute lymphocyte countOrd ered By: Dr. Wilson on 11-25-2022 Lymphocytes Auto (Unsp spec) [#/Vol] 1.86 10*3/uL 0.83-4.51 [facility] Basophil percentageOrdered B y: Dr. Wilson on 11-25-2022 Basophils/100 WBC (Bld) 0.4 % 0-1 [facility] Eosinophils/100 WBC (Bld) 6.5 % 0-5 [facility] Neutrophils (Bld) [#/Vol] 3.7 10*3/uL 2.0-7.7 [facility] Neutrophils/100 WBC (Bld) 53.1 % 47-70 [facility] WBC (Bld) [#/Vol] 7.0 10*3/uL 4.4-11.0 [facility] Blood erythrocytes count (nu mber/volume)Ordered By: Dr. Wilson on 11-25-2022 RBC (Bld) [#/Vol] 4.38 10*6/uL 4.6-6.2 [facility] Blood hemoglobin measurement (mass/volume)Ordered By: Dr. Wilson on 11-25-2022 Hemoglobin (Bld) [Mass/Vol] 14.0 g/dL 13.0-16.5 [facility] Blood lymphocytes/100 leukoc ytesOrdered By: Dr. Wilson on 11-25-2022 Lymphocytes/100 WBC (Bld) 26.5 % 19-41 [facility] Blood monocytes/100 leukocyt esOrdered By: Dr. Wilson on 11-25-2022 Monocytes/100 WBC (Bld) 13.1 % 0-10 [facility] Blood platelet mean volumeOr dered By: Dr. Wilson on 11-25-2022 Platelet mean volume (Bld) [Entitic vol] 10.2 fL 6.2-12.0 [facility] Determination of erythrocyte mean corpuscular volume (MCV)Ordered By: Dr. Wilson on 11-25-2022 MCV (RBC) [Entitic vol] 94.5 fL 80-94 [facility] Erythrocyte sedimentation ra teOrdered By: Dr. Wilson on 11-25-2022 ESR (Bld) [Velocity] 9 mm/h 0-20 [facility] Hematocrit Auto (Bld) [Volum e fraction]Ordered By: Dr. Wilson on 11-25-2022 Hematocrit (Bld) [Volume fraction] 41.4 % 40-54 [facility] Laboratory - Chemistry and C hemistry - challengeOrdered By: Dr. Wilson on 11-25-2022 ALT [Catalytic activity/Vol] 59 U/L 16-61 [facility] Laboratory - Hematology and Cell countsOrdered By: Dr. Wilson on 11-25-2022 Erythrocyte distribution width (RBC) [Entitic vol] 45.5 fL 35.1-43.9 [facility] Erythrocyte distribution width (RBC) [Ratio] 13.2 % 11.6-14.6 [facility] Immature granulocytes/100 WBC (Bld) 0.400 % 0.0-0.9 [facility] Comment on above: IG% - Immature Granu locytes (promyelocytes, myelocytes and metamyelocytes) > 1% indicates that a LEFT SHIFT is Present. MCH (RBC) [Entitic mass] 32.0 pg 27.0-32.0 [facility] Nucleated RBC/100 WBC (Bld) [Ratio] 0 % 0-5 [facility] MCHC Auto (RBC) [Mass/Vol]Or dered By: Dr. Wilson on 11-25-2022 MCHC (RBC) [Mass/Vol] 33.8 g/dL 32-36 [facility] No Panel InformationOrdered By: Dr. Wilson on 11-25-2022 Estimated GFR (MDRD) Amer 68 mL/min >60 [facility] Comment on above: GFR Calc Estimated GFR (MDRD) Non-Af Amer 56 mL/min >60 [facility] Comment on above: Non- GFR Calc Platelets bldOrdered By: Dr. Wilson on 11-25-2022 Platelets (Bld) [#/Vol] 257 10*3/uL 150-450 [facility] Serum or plasma C reactive p rotein measurement (mass/volume)Ordered By: Dr. Wilson on 11-25-2022 CRP [Mass/Vol] mg/L 0.0-3.0 [facility] Comment on above: C-Reactive Protein ( CRP) provides useful information for thediagnosis, therapy and monitoring of inflammatory processesand associated diseases. For the evaluation of Relative Riskfor Cardiovascular Disease, a High Sensitivity CRP (HSCRP)should be ordered. Serum or plasma creatinine m easurement (mass/volume)Ordered By: Dr. Wilson on 11-25-2022 Creatinine [Mass/Vol] 1.31 mg/dL 0.70-1.30 [facility] Comment on above: The validity of the calculated GFR & GFRAA in patients over 70 years has not been determined. Clinical correlation is essential. Thin prep Papanicolaou smear with manual screeningOrdered By: Dr. Wilson on 11-25-2022 Thin prep Papanicolaou smear with manual screening 33 U/L 15-37 [facility] Anaerobic cultureOrdered By: Tanesha Alva on 10-31-2022 Bacteria identified Anaer cx Nom (Unsp spec) No anaerobic bacteria isolated. [facility] Bacteria identified Cx Nom ( Wound)Ordered By: Tanesha Alva on 10-29-2022 Wound Culture Staphylococcus lugdunensis [facility] Gram stain for investigation of transfusion reactionOrdered By: Tanesha Alva on 10-28-2022 Microscopic observation Gram stain Nom (Unsp spec) [facility] Bacteria identified Anaer cx Nom (Unsp spec)Ordered By: Tanesha Alva on 09-25-2022 Anaerobic Culture Anaerobic cocci [facility] Bacteria identified Cx Nom ( Wound)Ordered By: Tanesha Alva on 09-25-2022 Wound Culture Staphylococcus aureus [facility] Gram stain for investigation of transfusion reactionOrdered By: Tanesha Alva on 09-23-2022 Microscopic observation Gram stain Nom (Unsp spec) [facility] Absolute lymphocyte countOrd ered By: Dr. Wilson on 08-23-2022 Lymphocytes Auto (Unsp spec) [#/Vol] 1.68 10*3/uL 0.83-4.51 [facility] Basophil percentageOrdered B y: Dr. Wilson on 08-23-2022 Basophils/100 WBC (Bld) 0.5 % 0-1 [facility] Eosinophils/100 WBC (Bld) 7.2 % 0-5 [facility] Neutrophils (Bld) [#/Vol] 4.3 10*3/uL 2.0-7.7 [facility] Neutrophils/100 WBC (Bld) 58.2 % 47-70 [facility] WBC (Bld) [#/Vol] 7.5 10*3/uL 4.4-11.0 [facility] Blood erythrocytes count (nu mber/volume)Ordered By: Dr. Wilson on 08-23-2022 RBC (Bld) [#/Vol] 4.08 10*6/uL 4.6-6.2 [facility] Blood hemoglobin measurement (mass/volume)Ordered By: Dr. Wilson on 08-23-2022 Hemoglobin (Bld) [Mass/Vol] 13.7 g/dL 13.0-16.5 [facility] Blood lymphocytes/100 leukoc ytesOrdered By: Dr. Wilson on 08-23-2022 Lymphocytes/100 WBC (Bld) 22.5 % 19-41 [facility] Blood monocytes/100 leukocyt esOrdered By: Dr. Wilson on 08-23-2022 Monocytes/100 WBC (Bld) 11.1 % 0-10 [facility] Blood platelet mean volumeOr dered By: Dr. Wilson on 08-23-2022 Platelet mean volume (Bld) [Entitic vol] 10.9 fL 6.2-12.0 [facility] Determination of erythrocyte mean corpuscular volume (MCV)Ordered By: Dr. Wilson on 08-23-2022 MCV (RBC) [Entitic vol] 98.5 fL 80-94 [facility] Erythrocyte sedimentation ra teOrdered By: Dr. Wilson on 08-23-2022 ESR (Bld) [Velocity] 5 mm/h 0-20 [facility] Hematocrit Auto (Bld) [Volum e fraction]Ordered By: Dr. Wilson on 08-23-2022 Hematocrit (Bld) [Volume fraction] 40.2 % 40-54 [facility] Laboratory - Chemistry and C hemistry - challengeOrdered By: Dr. Wilson on 08-23-2022 ALT [Catalytic activity/Vol] 47 U/L 16-61 [facility] Laboratory - Hematology and Cell countsOrdered By: Dr. Wilson on 08-23-2022 Erythrocyte distribution width (RBC) [Entitic vol] 48.3 fL 35.1-43.9 [facility] Erythrocyte distribution width (RBC) [Ratio] 13.6 % 11.6-14.6 [facility] Immature granulocytes/100 WBC (Bld) 0.500 % 0.0-0.9 [facility] Comment on above: IG% - Immature Granu locytes (promyelocytes, myelocytes and metamyelocytes) > 1% indicates that a LEFT SHIFT is Present. MCH (RBC) [Entitic mass] 33.6 pg 27.0-32.0 [facility] Nucleated RBC/100 WBC (Bld) [Ratio] 0 % 0-5 [facility] MCHC Auto (RBC) [Mass/Vol]Or dered By: Dr. Wilson on 08-23-2022 MCHC (RBC) [Mass/Vol] 34.1 g/dL 32-36 [facility] No Panel InformationOrdered By: Dr. Wilson on 08-23-2022 Estimated GFR (MDRD) Amer 69 mL/min >60 [facility] Comment on above: GFR Calc Estimated GFR (MDRD) Non-Af Amer 57 mL/min >60 [facility] Comment on above: Non- GFR Calc Platelets bldOrdered By: Dr. Wilson on 08-23-2022 Platelets (Bld) [#/Vol] 264 10*3/uL 150-450 [facility] Serum or plasma C reactive p rotein measurement (mass/volume)Ordered By: Dr. Wilson on 08-23-2022 CRP [Mass/Vol] mg/L 0.0-3.0 [facility] Comment on above: C-Reactive Protein ( CRP) provides useful information for thediagnosis, therapy and monitoring of inflammatory processesand associated diseases. For the evaluation of Relative Riskfor Cardiovascular Disease, a High Sensitivity CRP (HSCRP)should be ordered. Serum or plasma creatinine m easurement (mass/volume)Ordered By: Dr. Wilson on 08-23-2022 Creatinine [Mass/Vol] 1.29 mg/dL 0.70-1.30 [facility] Comment on above: The validity of the calculated GFR & GFRAA in patients over 70 years has not been determined. Clinical correlation is essential. Serum or plasma uric acid me asurement (mass/volume)Ordered By: Dr. Wilson on 08-23-2022 Urate [Mass/Vol] 5.9 mg/dL 3.5-7.2 [facility] Comment on above: The drugs N-Acetylcy steine and Metamizole may falsely depress this assay. Thin prep Papanicolaou smear with manual screeningOrdered By: Dr. Wilson on 08-23-2022 Thin prep Papanicolaou smear with manual screening 28 U/L 15-37 [facility] Absolute lymphocyte counton 06-21-2022 Lymphocytes Auto (Unsp spec) [#/Vol] 1.75 10*3/uL 0.83-4.51 [facility] Work Phone: Basophil percentageon 2021 Basophils/100 WBC (Bld) 0.4 % 0-1 [facility] Work Phone: Eosinophils/100 WBC (Bld) 8.3 % 0-5 [facility] Work Phone: Neutrophils (Bld) [#/Vol] 2.9 10*3/uL 2.0-7.7 [facility] Work Phone: Neutrophils/100 WBC (Bld) 51.2 % 47-70 [facility] Work Phone: WBC (Bld) [#/Vol] 5.7 10*3/uL 4.4-11.0 [facility] Work Phone: Blood erythrocytes count (nu mber/volume)on 06-21-2022 RBC (Bld) [#/Vol] 3.96 10*6/uL 4.6-6.2 [facility]: Blood hemoglobin measurement (mass/volume)on 06-21-2022 Hemoglobin (Bld) [Mass/Vol] 12.9 g/dL 13.0-16.5 [facility] Work Phone: Blood lymphocytes/100 leukoc yteson 06-21-2022 Lymphocytes/100 WBC (Bld) 30.9 % 19-41 [facility] Work Phone: Blood monocytes/100 leukocyt eson 06-21-2022 Monocytes/100 WBC (Bld) 9.0 % 0-10 [facility] Work Phone: Blood platelet mean volumeon 06-21-2022 Platelet mean volume (Bld) [Entitic vol] 10.0 fL 6.2-12.0 [facility] Work Phone: Determination of erythrocyte mean corpuscular volume (MCV)on 06-21-2022 MCV (RBC) [Entitic vol] 96.2 fL 80-94 [facility] Work Phone: Erythrocyte sedimentation ra judie 06-21-2022 ESR (Bld) [Velocity] 8 mm/h 0-20 [facility] Work Phone: [phone] Hematocrit Auto (Bld) [Volum e fraction]on 06-21-2022 Hematocrit (Bld) [Volume fraction] 38.1 % 40-54 [facility] Work Phone: [phone] Laboratory - Chemistry and C hemistry - challengeon 06-21-2022 ALT [Catalytic activity/Vol] 56 U/L 16-61 [facility] Work Phone: [phone] Laboratory - Hematology and Cell countson 06-21-2022 Erythrocyte distribution width (RBC) [Entitic vol] 48.8 fL 35.1-43.9 [facility] Work Phone: [phone] Erythrocyte distribution width (RBC) [Ratio] 14.0 % 11.6-14.6 [facility] Work Phone: [phone] Immature granulocytes/100 WBC (Bld) 0.200 % 0.0-0.9 [facility] Work Phone: [phone] Comment on above: IG% - Immature Granu locytes (promyelocytes, myelocytes and metamyelocytes) > 1% indicates that a LEFT SHIFT is Present. MCH (RBC) [Entitic mass] 32.6 pg 27.0-32.0 [facility] Work Phone: [phone] Nucleated RBC/100 WBC (Bld) [Ratio] 0 % 0-5 [facility] Work Phone: [phone] MCHC Auto (RBC) [Mass/Vol]on 06-21-2022 MCHC (RBC) [Mass/Vol] 33.9 g/dL 32-36 [facility] Work Phone: [phone] No Panel Informationon 06-21 Estimated GFR (MDRD) Amer 61 mL/min >60 [facility] Work Phone: [phone] Comment on above: GFR Calc Estimated GFR (MDRD) Non-Af Amer 51 mL/min >60 [facility] Work Phone: [phone] Comment on above: Non- GFR Calc Platelets bldon 06-21-2022 Platelets (Bld) [#/Vol] 220 10*3/uL 150-450 [facility] Work Phone: Serum or plasma C reactive p rotein measurement (mass/volume)on 06-21-2022 CRP [Mass/Vol] mg/L 0.0-3.0 [facility] Work Phone: Comment on above: C-Reactive Protein ( CRP) provides useful information for thediagnosis, therapy and monitoring of inflammatory processesand associated diseases. For the evaluation of Relative Riskfor Cardiovascular Disease, a High Sensitivity CRP (HSCRP)should be ordered. Serum or plasma creatinine m easurement (mass/volume)on 06-21-2022 Creatinine [Mass/Vol] 1.43 mg/dL 0.70-1.30 [facility] Work Phone: Comment on above: The validity of the calculated GFR & GFRAA in patients over 70 years has not been determined. Clinical correlation is essential. Serum or plasma uric acid me asurement (mass/volume)on 06-21-2022 Urate [Mass/Vol] 6.3 mg/dL 3.5-7.2 [facility] Work Phone: Comment on above: The drugs N-Acetylcy steine and Metamizole may falsely depress this assay. Thin prep Papanicolaou smear with manual screeningon 06-21-2022 Thin prep Papanicolaou smear with manual screening 27 U/L 15-37 [facility] Work Phone: Absolute lymphocyte counton 04-21-2022 Lymphocytes Auto (Unsp spec) [#/Vol] 1.19 10*3/uL 0.83-4.51 [facility] Work Phone: Basophil percentageon 2021 Basophils/100 WBC (Bld) 0.6 % 0-1 [facility] Work Phone: Eosinophils/100 WBC (Bld) 4.4 % 0-5 [facility] Work Phone: [phone] Neutrophils (Bld) [#/Vol] 5.6 10*3/uL 2.0-7.7 [facility] Work Phone: Neutrophils/100 WBC (Bld) 70.4 % 47-70 [facility] Work Phone: WBC (Bld) [#/Vol] 8.0 10*3/uL 4.4-11.0 [facility]: Blood erythrocytes count (nu mber/volume)on 04-21-2022 RBC (Bld) [#/Vol] 4.15 10*6/uL 4.6-6.2 [facility] Work Phone: Blood hemoglobin measurement (mass/volume)on 04-21-2022 Hemoglobin (Bld) [Mass/Vol] 13.8 g/dL 13.0-16.5 [facility] Work Phone: Blood lymphocytes/100 leukoc yteson 04-21-2022 Lymphocytes/100 WBC (Bld) 14.9 % 19-41 [facility] Work Phone: Blood monocytes/100 leukocyt eson 04-21-2022 Monocytes/100 WBC (Bld) 8.9 % 0-10 [facility] Work Phone: Blood platelet mean volumeon 04-21-2022 Platelet mean volume (Bld) [Entitic vol] 10.5 fL 6.2-12.0 [facility] Work Phone: Determination of erythrocyte mean corpuscular volume (MCV)on 04-21-2022 MCV (RBC) [Entitic vol] 97.1 fL 80-94 [facility] Work Phone: Erythrocyte sedimentation ra judie 04-21-2022 ESR (Bld) [Velocity] 13 mm[facility]h [facility]: Hematocrit Auto (Bld) [Volum e fraction]on 04-21-2022 Hematocrit (Bld) [Volume fraction] 40.3 % 40-54 [facility] Work Phone: Laboratory - Chemistry and C hemistry - challengeon 04-21-2022 ALT [Catalytic activity/Vol] 43 U/L 16-61 [facility] Work Phone: Laboratory - Hematology and Cell countson 04-21-2022 Erythrocyte distribution width (RBC) [Entitic vol] 46.5 fL 35.1-43.9 [facility] Work Phone: [phone] Erythrocyte distribution width (RBC) [Ratio] 13.2 % 11.6-14.6 [facility] Work Phone: [phone] Immature granulocytes/100 WBC (Bld) 0.800 % 0.0-0.9 [facility] Work Phone: [phone] Comment on above: IG% - Immature Granu locytes (promyelocytes, myelocytes and metamyelocytes) > 1% indicates that a LEFT SHIFT is Present. MCH (RBC) [Entitic mass] 33.3 pg 27.0-32.0 [facility] Work Phone: [phone] Nucleated RBC/100 WBC (Bld) [Ratio] 0 % 0-5 [facility] Work Phone: [phone] MCHC Auto (RBC) [Mass/Vol]on 04-21-2022 MCHC (RBC) [Mass/Vol] 34.2 g/dL 32-36 [facility] Work Phone: No Panel Informationon 04-21 Estimated GFR (MDRD) Amer 74 mL/min >60 [facility] Work Phone: Comment on above: GFR Calc Estimated GFR (MDRD) Non-Af Amer 61 mL/min >60 [facility] Work Phone: [phone] Comment on above: Non- GFR Calc Platelets bldon 04-21-2022 Platelets (Bld) [#/Vol] 255 10*3/uL 150-450 [facility] Work Phone: [phone] Serum or plasma C reactive p rotein measurement (mass/volume)on 04-21-2022 CRP [Mass/Vol] 5.46 mg/L 0.0-3.0 [facility] Work Phone: [phone] Comment on above: C-Reactive Protein ( CRP) provides useful information for thediagnosis, therapy and monitoring of inflammatory processesand associated diseases. For the evaluation of Relative Riskfor Cardiovascular Disease, a High Sensitivity CRP (HSCRP)should be ordered. Serum or plasma creatinine m easurement (mass/volume)on 04-21-2022 Creatinine [Mass/Vol] 1.22 mg/dL 0.70-1.30 [facility] Work Phone: Comment on above: The validity of the calculated GFR & GFRAA in patients over 70 years has not been determined. Clinical correlation is essential. Thin prep Papanicolaou smear with manual screeningon 04-21-2022 Thin prep Papanicolaou smear with manual screening 23 U/L 15-37 [facility] Work Phone: Absolute lymphocyte counton 02-22-2022 Lymphocytes Auto (Unsp spec) [#/Vol] 1.91 10*3/uL 0.83-4.51 [facility] Work Phone: Basophil percentageon 2021 Basophils/100 WBC (Bld) 0.4 % 0-1 [facility] [facility] Work Phone: Bilirubin [Mass/Vol] 0.40 mg/dL 0.20-1.00 [facility] Work Phone: Comment on above: For patients on eltr ombopag therapy, use of Dimension [place] TBIL is not recommended. Chloride [Moles/Vol] 106 mmol/L 98-107 [facility] Work Phone: Eosinophils/100 WBC (Bld) 5.2 % 0-5 [facility] Work Phone: Glucose [Mass/Vol] 127 mg/dL 74-106 [facility] Work Phone: Comment on above: Fasting Glucose resu lt greater than or equal to 126 mg/dL suggests DIABETES MELLITUS per A.D.A. criteria. Neutrophils (Bld) [#/Vol] 4.6 10*3/uL 2.0-7.7 [facility] Work Phone: Neutrophils/100 WBC (Bld) 59.3 % 47-70 [facility] Work Phone: Potassium [Moles/Vol] 4.2 mmol/L 3.5-5.1 [facility] Work Phone: Protein [Mass/Vol] 7.2 g/dL 6.4-8.2 [facility]: Sodium [Moles/Vol] 138 mmol/L 136-145 [facility] Work Phone: [phone] WBC (Bld) [#/Vol] 7.8 10*3/uL 4.4-11.0 [facility] Work Phone: [phone] Blood erythrocytes count (nu mber/volume)on 02-22-2022 RBC (Bld) [#/Vol] 4.50 10*6/uL 4.6-6.2 [facility]: Blood hemoglobin measurement (mass/volume)on 02-22-2022 Hemoglobin (Bld) [Mass/Vol] 14.6 g/dL 13.0-16.5 [facility] Work Phone: [phone] Blood lymphocytes/100 leukoc yteson 02-22-2022 Lymphocytes/100 WBC (Bld) 24.4 % 19-41 [facility] Work Phone: [phone] Blood monocytes/100 leukocyt eson 02-22-2022 Monocytes/100 WBC (Bld) 10.1 % 0-10 [facility] Work Phone: Blood platelet mean volumeon 02-22-2022 Platelet mean volume (Bld) [Entitic vol] 10.1 fL 6.2-12.0 [facility] Work Phone: [phone] Determination of erythrocyte mean corpuscular volume (MCV)on 02-22-2022 MCV (RBC) [Entitic vol] 94.4 fL 80-94 [facility] Work Phone: [phone] Erythrocyte sedimentation ra judie 02-22-2022 ESR (Bld) [Velocity] 12 mm[facility]h 0[facility]: [phone] Hematocrit Auto (Bld) [Volum e fraction]on 02-22-2022 Hematocrit (Bld) [Volume fraction] 42.5 % 40-54 [facility] Work Phone: [phone] Laboratory - Chemistry and C hemistry - challengeon 02-22-2022 ALP [Catalytic activity/Vol] 89 U/L 45-117 [facility] Work Phone: [phone] ALT [Catalytic activity/Vol] 58 U/L 16-61 [facility] Work Phone: [phone] CO2 [Moles/Vol] 30.0 mmol/L 21.0-32.0 [facility] Work Phone: [phone] Globulin (S) [Mass/Vol] 3.8 g/dL 2.2-4.2 [facility] Work Phone: [phone] Urea nitrogen/Creatinine [Mass ratio] 18.9 mg/mg 10-20 [facility] Work Phone: [phone] Laboratory - Hematology and Cell countson 02-22-2022 Erythrocyte distribution width (RBC) [Entitic vol] 46.1 fL 35.1-43.9 [facility] Work Phone: [phone] Erythrocyte distribution width (RBC) [Ratio] 13.4 % 11.6-14.6 [facility] Work Phone: [phone] Immature granulocytes/100 WBC (Bld) 0.600 % 0.0-0.9 [facility] Work Phone: [phone] Comment on above: IG% - Immature Granu locytes (promyelocytes, myelocytes and metamyelocytes) > 1% indicates that a LEFT SHIFT is Present. MCH (RBC) [Entitic mass] 32.4 pg 27.0-32.0 [facility] Work Phone: [phone] Nucleated RBC/100 WBC (Bld) [Ratio] 0 % 0-5 [facility] Work Phone: [phone] MCHC Auto (RBC) [Mass/Vol]on 02-22-2022 MCHC (RBC) [Mass/Vol] 34.4 g/dL 32-36 [facility] Work Phone: [phone] Panel Informationon 02-22 Estimated Creatinine Clearance Calc 54.77 ml/min [facility] Work Phone: Estimated GFR (MDRD) Amer 74 mL/min >60 [facility] Work Phone: Comment on above: GFR Calc Estimated GFR (MDRD) Non-Af Amer 61 mL/min >60 [facility] Work Phone: Comment on above: Non- GFR Calc Platelets bldon 02-22-2022 Platelets (Bld) [#/Vol] 277 10*3/uL 150-450 [facility] Work Phone: Serum or plasma C reactive p rotein measurement (mass/volume)on 02-22-2022 CRP [Mass/Vol] 11.30 mg/L 0.0-3.0 [facility] Work Phone: Comment on above: C-Reactive Protein ( CRP) provides useful information for thediagnosis, therapy and monitoring of inflammatory processesand associated diseases. For the evaluation of Relative Riskfor Cardiovascular Disease, a High Sensitivity CRP (HSCRP)should be ordered. Serum or plasma albumin amadou urement (mass/volume)on 02-22-2022 Albumin [Mass/Vol] 3.4 g/dL 3.2-5.0 [facility] Work Phone: Serum or plasma albumin/glob ulin mass ratioon 02-22-2022 Albumin/Globulin [Mass ratio] 0.9 {ratio} 0.9-2.4 [facility] Work Phone: Serum or plasma calcium amadou urement (mass/volume)on 02-22-2022 Calcium [Mass/Vol] 9.4 mg/dL 8.5-10.1 [facility] Work Phone: Serum or plasma creatinine m easurement (mass/volume)on 02-22-2022 Creatinine [Mass/Vol] 1.22 mg/dL 0.70-1.30 [facility] Work Phone: Comment on above: The validity of the calculated GFR & GFRAA in patients over 70 years has not been determined. Clinical correlation is essential. Serum or plasma urea nitroge n measurement (mass/volume)on 02-22-2022 Urea nitrogen [Mass/Vol] 23 mg/dL 7-18 [facility] Work Phone: Thin prep Papanicolaou smear with manual screeningon 02-22-2022 Thin prep Papanicolaou smear with manual screening 32 U/L 15-37 [facility] Work Phone: Thin prep Papanicolaou smear with manual screening 2 5-15 [facility] Work Phone: Absolute lymphocyte counton 02-05-2022 Lymphocytes Auto (Unsp spec) [#/Vol] 1.31 10*3/uL 0.83-4.51 [facility] Work Phone: Basophil percentageon 2021 Basophils/100 WBC (Bld) 0.8 % 0-1 [facility] Work Phone: Bilirubin [Mass/Vol] 0.60 mg/dL 0.20-1.00 [facility] Work Phone: Comment on above: For patients on eltr ombopag therapy, use of Dimension [place] TBIL is not recommended. Chloride [Moles/Vol] 106 mmol/L 98-107 [facility] Work Phone: Cholesterol [Mass/Vol] 144 mg/dL <200 [facility] Work Phone: Comment on above: <200 mg/dL Desirable 200-240 mg/dL Borderline >240 mg/dL High Risk Eosinophils/100 WBC (Bld) 6.9 % 0-5 [facility] Work Phone: Glucose [Mass/Vol] 166 mg/dL 74-106 [facility] Work Phone: Comment on above: Fasting Glucose resu lt greater than or equal to 126 mg/dL suggests DIABETES MELLITUS per A.D.A. criteria. Neutrophils (Bld) [#/Vol] 3.5 10*3/uL 2.0-7.7 [facility] Work Phone: Neutrophils/100 WBC (Bld) 57.2 % 47-70 [facility] Work Phone: Potassium [Moles/Vol] 4.4 mmol/L 3.5-5.1 [facility] Work Phone: [phone] Protein [Mass/Vol] 7.5 g/dL 6.4-8.2 [facility] Work Phone: [phone] Sodium [Moles/Vol] 139 mmol/L 136-145 [facility] Work Phone: [phone] Triglyceride [Mass/Vol] 76 mg/dL <199 [facility] Work Phone: [phone] Comment on above: The drugs N-Acetylcy steine and Metamizole may falsely depress this assay.Serum Triglycerides Reference Interval Normal <150 mg/dL Borderline high 150 - 199 mg/dL High 200 - 499 mg/dL Very High > or = 500 mg/dL WBC (Bld) [#/Vol] 6.1 10*3/uL 4.4-11.0 [facility] Work Phone: [phone] Blood erythrocytes count (nu mber/volume)on 02-05-2022 RBC (Bld) [#/Vol] 4.51 10*6/uL 4.6-6.2 [facility] Work Phone: [phone] Blood hemoglobin measurement (mass/volume)on 02-05-2022 Hemoglobin (Bld) [Mass/Vol] 14.3 g/dL 13.0-16.5 [facility] Work Phone: [phone] Blood lymphocytes/100 leukoc yteson 02-05-2022 Lymphocytes/100 WBC (Bld) 21.5 % 19-41 [facility] Work Phone: [phone] Blood monocytes/100 leukocyt eson 02-05-2022 Monocytes/100 WBC (Bld) 13.3 % 0-10 [facility] Work Phone: [phone] Blood platelet mean volumeon 02-05-2022 Platelet mean volume (Bld) [Entitic vol] 10.3 fL 6.2-12.0 [facility] Work Phone: [phone] Determination of erythrocyte mean corpuscular volume (MCV)on 02-05-2022 MCV (RBC) [Entitic vol] 94.9 fL 80-94 [facility] Work Phone: Direct bilirubinon Bilirubin.direct [Mass/Vol] 0.20 mg/dL 0.00-0.30 [facility] Work Phone: Erythrocyte sedimentation ra judie 02-05-2022 ESR (Bld) [Velocity] 21 mm[facility]h 0-20 [facility] Work Phone: Hematocrit Auto (Bld) [Volum e fraction]on 02-05-2022 Hematocrit (Bld) [Volume fraction] 42.8 % 40-54 [facility] Work Phone: Laboratory - Chemistry and C hemistry - challengeon 02-05-2022 ALP [Catalytic activity/Vol] 77 U/L 45-117 [facility] Work Phone: ALT [Catalytic activity/Vol] 56 U/L 16-61 [facility] Work Phone: [phone] CO2 [Moles/Vol] 28.0 mmol/L 21.0-32.0 [facility] Work Phone: Globulin (S) [Mass/Vol] 3.9 g/dL 2.2-4.2 [facility] Work Phone: Urea nitrogen/Creatinine [Mass ratio] 17.4 mg/mg 10-20 [facility] Work Phone: Laboratory - Hematology and Cell countson 02-05-2022 Erythrocyte distribution width (RBC) [Entitic vol] 48.2 fL 35.1-43.9 [facility] Work Phone: Erythrocyte distribution width (RBC) [Ratio] 13.9 % 11.6-14.6 [facility] Work Phone: Immature granulocytes/100 WBC (Bld) 0.300 % 0.0-0.9 [facility] Work Phone: Comment on above: IG% - Immature Granu locytes (promyelocytes, myelocytes and metamyelocytes) > 1% indicates that a LEFT SHIFT is Present. MCH (RBC) [Entitic mass] 31.7 pg 27.0-32.0 [facility] Work Phone: [phone] Nucleated RBC/100 WBC (Bld) [Ratio] 0 % 0-5 [facility] Work Phone: [phone] MCHC Auto (RBC) [Mass/Vol]on 02-05-2022 MCHC (RBC) [Mass/Vol] 33.4 g/dL 32-36 [facility] Work Phone: [phone] Panel Informationon 02-05 Estimated GFR (MDRD) Amer 67 mL/min >60 [facility] Work Phone: [phone] Comment on above: GFR Calc Estimated GFR (MDRD) Non-Af Amer 56 mL/min >60 [facility] Work Phone: [phone] Comment on above: Non- GFR Calc Prostate Specific Antigen Total 0.86 ng/mL 0.0-4.0 [facility] Work Phone: [phone] Comment on above: This test was perfor med using the TPSA assay method for [employer] chemistry system. Values obtained with differentassay methods cannot be used interchangably.When changing PSA assays in the course of monitoring apatient, additional sequential testing should be carriedout to confirm baseline values. Urine Microalbumin/Creatinine Ratio 123.7 mg/g CRE <30 [facility] Work Phone: [phone] Platelets bldon 02-05-2022 Platelets (Bld) [#/Vol] 208 10*3/uL 150-450 [facility] Work Phone: [phone] Serum or plasma C reactive p rotein measurement (mass/volume)on 02-05-2022 CRP [Mass/Vol] 4.99 mg/L 0.0-3.0 [facility] Work Phone: [phone] Comment on above: C-Reactive Protein ( CRP) provides useful information for thediagnosis, therapy and monitoring of inflammatory processesand associated diseases. For the evaluation of Relative Riskfor Cardiovascular Disease, a High Sensitivity CRP (HSCRP)should be ordered. Serum or plasma albumin amadou urement (mass/volume)on 02-05-2022 Albumin [Mass/Vol] 3.6 g/dL 3.2-5.0 [facility] Work Phone: [phone] Serum or plasma albumin/glob ulin mass ratioon 02-05-2022 Albumin/Globulin [Mass ratio] 0.9 {ratio} 0.9-2.4 [facility] Work Phone: Serum or plasma calcium amadou urement (mass/volume)on 02-05-2022 Calcium [Mass/Vol] 9.7 mg/dL 8.5-10.1 [facility] Work Phone: [phone] Serum or plasma cholesterol in HDL measurement (mass/volume)on 02-05-2022 Cholesterol in HDL [Mass/Vol] 47 mg/dL >40 [facility] Work Phone: Comment on above: The drugs N-Acetylcy steine and Metamizole may falsely depress this assay. Reference Range HDL <40 mg/dL Low HDL Cholesterol HDL >or= 60 mg/dL High HDL Cholesterol Serum or plasma cholesterol in VLDL measurement (mass/volume)on 02-05-2022 Cholesterol in VLDL [Mass/Vol] 15 mg/dL 5-40 [facility] Work Phone: [phone] Serum or plasma creatinine m easurement (mass/volume)on 02-05-2022 Creatinine [Mass/Vol] 1.32 mg/dL 0.70-1.30 [facility] Work Phone: Comment on above: The validity of the calculated GFR & GFRAA in patients over 70 years has not been determined. Clinical correlation is essential. Serum or plasma low density lipoprotein (LDL) cholesterol measurement (mass/volume)on 02-05-2022 Cholesterol in LDL [Mass/Vol] 82 mg/dL 0-130 [facility] Work Phone: [phone] Serum or plasma urea nitroge n measurement (mass/volume)on 02-05-2022 Urea nitrogen [Mass/Vol] 23 mg/dL 7-18 [facility] Work Phone: [phone] Thin prep Papanicolaou smear with manual screeningon 02-05-2022 Thin prep Papanicolaou smear with manual screening 27 U/L 15-37 [facility] Work Phone: Thin prep Papanicolaou smear with manual screening 5 5-15 [facility] Work Phone: [phone] Thin prep Papanicolaou smear with manual screening 277.0 mg/L NO RANGE EST. [facility] Work Phone: Urine creatinine measurement (mass/volume)on 02-05-2022 Creatinine (U) [Mass/Vol] 224.00 mg/dL NO RANGE EST. [facility] Work Phone: Whole blood hemoglobin A1c/t otal hemoglobin ratio (mass fraction)on 02-05-2022 HbA1c (Bld) [Mass fraction] 6.9 % 3.8-5.6 [facility] Work Phone: Comment on above: Normal < 5.7 % Predi abetic 5.7 - 6.4 % Diabetic >or= 6.5 % Please note range changes. Absolute lymphocyte counton 12-04-2021 Lymphocytes Auto (Unsp spec) [#/Vol] 1.62 10*3/uL 0.83-4.51 [facility] Work Phone: Basophil percentageon 2021 Basophils/100 WBC (Bld) 0.5 % 0-1 [facility] Work Phone: Eosinophils/100 WBC (Bld) 7.7 % 0-5 [facility] Work Phone: Neutrophils (Bld) [#/Vol] 3.5 10*3/uL 2.0-7.7 [facility] Work Phone: Neutrophils/100 WBC (Bld) 55.6 % 47-70 [facility] Work Phone: WBC (Bld) [#/Vol] 6.2 10*3/uL 4.4-11.0 [facility] Work Phone: Blood erythrocytes count (nu mber/volume)on 12-04-2021 RBC (Bld) [#/Vol] 4.48 10*6/uL 4.6-6.2 [facility] Work Phone: Blood hemoglobin measurement (mass/volume)on 12-04-2021 Hemoglobin (Bld) [Mass/Vol] 14.1 g/dL 13.0-16.5 [facility] Work Phone: Blood lymphocytes/100 leukoc yteson 12-04-2021 Lymphocytes/100 WBC (Bld) 26.1 % 19-41 [facility] Work Phone: [phone] Blood monocytes/100 leukocyt eson 12-04-2021 Monocytes/100 WBC (Bld) 9.8 % 0-10 [facility] Work Phone: Blood platelet mean volumeon 12-04-2021 Platelet mean volume (Bld) [Entitic vol] 10.5 fL 6.2-12.0 [facility] Work Phone: Determination of erythrocyte mean corpuscular volume (MCV)on 12-04-2021 MCV (RBC) [Entitic vol] 94.2 fL 80-94 [facility] Work Phone: Erythrocyte sedimentation ra judie 12-04-2021 ESR (Bld) [Velocity] 5 mm[facility]h 0-20 [facility] Work Phone: Hematocrit Auto (Bld) [Volum e fraction]on 12-04-2021 Hematocrit (Bld) [Volume fraction] 42.2 % 40-54 [facility] Work Phone: Laboratory - Chemistry and C hemistry - challengeon 12-04-2021 ALT [Catalytic activity/Vol] 46 U/L 16-61 [facility] Work Phone: Laboratory - Hematology and Cell countson 12-04-2021 Erythrocyte distribution width (RBC) [Entitic vol] 47.0 fL 35.1-43.9 [facility] Work Phone: Erythrocyte distribution width (RBC) [Ratio] 13.7 % 11.6-14.6 [facility] Work Phone: Immature granulocytes/100 WBC (Bld) 0.300 % 0.0-0.9 [facility] Work Phone: Comment on above: IG% - Immature Granu locytes (promyelocytes, myelocytes and metamyelocytes) > 1% indicates that a LEFT SHIFT is Present. MCH (RBC) [Entitic mass] 31.5 pg 27.0-32.0 [facility] Work Phone: Nucleated RBC/100 WBC (Bld) [Ratio] 0 % 0-5 [facility] Work Phone: [phone] MCHC Auto (RBC) [Mass/Vol]on 12-04-2021 MCHC (RBC) [Mass/Vol] 33.4 g/dL 32-36 [facility] Work Phone: No Panel Informationon 12-04 Estimated GFR (MDRD) Amer 77 mL/min >60 [facility] Work Phone: Comment on above: GFR Calc Estimated GFR (MDRD) Non-Af Amer 64 mL/min >60 [facility] Work Phone: Comment on above: Non- GFR Calc Platelets bldon 12-04-2021 Platelets (Bld) [#/Vol] 264 10*3/uL 150-450 [facility] Work Phone: Serum or plasma C reactive p rotein measurement (mass/volume)on 12-04-2021 CRP [Mass/Vol] mg/L 0.0-3.0 [facility] Work Phone: Comment on above: C-Reactive Protein ( CRP) provides useful information for thediagnosis, therapy and monitoring of inflammatory processesand associated diseases. For the evaluation of Relative Riskfor Cardiovascular Disease, a High Sensitivity CRP (HSCRP)should be ordered. Serum or plasma creatinine m easurement (mass/volume)on 12-04-2021 Creatinine [Mass/Vol] 1.17 mg/dL 0.70-1.30 [facility] Work Phone: Comment on above: The validity of the calculated GFR & GFRAA in patients over 70 years has not been determined. Clinical correlation is essential. Thin prep Papanicolaou smear with manual screeningon 12-04-2021 Thin prep Papanicolaou smear with manual screening 30 U/L 15-37 [facility] Work Phone: Krysten 10-08-2019 ALT [Catalytic activity/Vol] 40 U/L [facility] Sandi 10-08-2019 AST [Catalytic activity/Vol] 31 U/L [facility] C REACTIVE PROTEINon 019 CRP [Mass/Vol] mg/L 0 - 10 MG/L [facility] CBC, EDIF, PLATELETon 2018 ABSOLUTE BASOPHIL COUNT 0.0 10*3/uL 0 - 0.2 10*3/uL [facility] Basophils/100 WBC (Bld) 0.6 % 0 - 2 % [employer] Differential cell count method Nom (Bld) AUTO DIFF % [facility] Eosinophils (Bld) [#/Vol] 1.30 10*3/uL High 0 - 0.7 10*3/uL [facility] Eosinophils/100 WBC (Bld) 16.9 % High 0 - 11 % [facility] Erythrocyte distribution width (RBC) [Ratio] 14.6 % High 11.5 - 14.5 % [facility] Hematocrit (Bld) [Volume fraction] 41.3 % Low 42 - 52 % [facility] Hemoglobin (Bld) [Mass/Vol] 13.8 g/dL Low [facility] Interpretation and review of laboratory results Abnormal [facility] Lymphocytes (Bld) [#/Vol] 1.80 10*3/uL 1.2 - 3.4 10*3/uL [facility] Lymphocytes/100 WBC (Bld) 24.3 % 20 - 55 % [facility] MCH (RBC) [Entitic mass] 31.2 pg 26 - 35 PG [facility] MCHC (RBC) [Mass/Vol] 33.5 g/dL [facility] MCV (RBC) [Entitic vol] 93.4 fL A ELEN[facility] [employer] Monocytes (Bld) [#/Vol] 0.7 10*3/uL 0 - 0.7 10*3/uL [facility] Monocytes/100 WBC (Bld) 8.9 % 0 - 10 % A ELEN[facility] [employer] Neutrophils (Bld) [#/Vol] 3.7 10*3/uL 1.4 - 6.5 10*3/uL [facility] [employer] Neutrophils/100 WBC (Bld) 49.3 % 37 - 75 % [employer] Platelet mean volume (Bld) [Entitic vol] 9.8 fL [employer] Platelets (Bld) [#/Vol] 215 10*3/uL 130 - 400 10*3/uL [facility] [employer] RBC (Bld) [#/Vol] 4.42 10*6/uL 4 - 6.1 10*6/uL [facility] WBC (Bld) [#/Vol] 7.5 10*3/uL 3.6 - 11 10*3/uL [facility] CREATININE SERUMon 9 Creatinine [Mass/Vol] 0.98 mg/dL [facility] [employer] GFR/1.73 sq M predicted among blacks MDRD (S/P/Bld) [Vol rate/Area] mL/min/{1.73_m2} ml/min/1.73 sq.m [facility] GFR/1.73 sq M predicted among non-blacks MDRD (S/P/Bld) [Vol rate/Area] Average GFR for 70+ years old = 75. [employer] Comment on above: Chronic Kidney disea se, GFR = <60. Kidney failure, GFR = <15. The GFR estimate is not adjusted for extreme body surface area or acute process, nor has it been validated for women or ethnic groups other than and . GFR/1.73 sq M predicted among non-blacks MDRD (S/P/Bld) [Vol rate/Area] mL/min/{1.73_m2} ml/min/1.73 sq.m [facility] SEDIMENTATION RATE, AUTOMATE Don 10-08-2019 ESR (Bld) [Velocity] 4 mm/h [facility] Office Visit: [facility] 10-03-20 17 Dietary management education, guidance, and counseling (procedure) yes Invalid Interpretation Code [facility] Work Phone: [phone] Documentation of current medications (procedure) Done Invalid Interpretation Code [facility] Work Phone: [phone] Fall risk assessment No Invalid Interpretation Code [facility] Work Phone: [phone] [facility] Note on 05-20-2017 [facility] Note Normal [facility] Office Visit: [facility] 05-09-20 17 Tobacco smoking status NHIS Never Invalid Interpretation Code [facility] Work Phone: [phone] Tobacco use [facility] Former smoker Invalid Interpretation Code [facility] Work Phone: [phone] Lab Report: Comprehensive Il tabolic Profilon 01-03-2017 Alanine aminotransferase (ALT) 46 U/L Invalid Interpretation Code 12-78 [facility] Work Phone: [phone] Albumin 3.8 g/dL Invalid Interpretation Code 3.4-5.0 [facility] Work Phone: [phone] Albumin/Globulin Ratio 1.3 {ratio} Invalid Interpretation Code 0.9-2.4 [facility] Work Phone: [phone] Alkaline phosphatase (ALP) 48 U/L Invalid Interpretation Code 45-117 [facility] Work Phone: [phone] Anion gap 9 mmol/L Invalid Interpretation Code 5-15 [facility] Work Phone: [phone] Aspartate aminotransferase (AST) 25 U/L Invalid Interpretation Code 15-37 [facility] Work Phone: [phone] Bilirubin (total) 0.50 mg/dL Invalid Interpretation Code 0.20-1.00 [facility] Work Phone: [phone] BUN/Creatinine Ratio 21.8 RATIO High 10-[address] [facility] Work Phone: [phone] Calcium 9.2 mg/dL Invalid Interpretation Code 8.5-10.1 [facility] Work Phone: [phone] Chloride 104 mmol/L Invalid Interpretation Code 98-107 [facility] Work Phone: [phone] CO2 28.0 mmol/L Invalid Interpretation Code 21.0-32.0 [facility] Work Phone: [phone] Creatinine 1.10 mg/dL Invalid Interpretation Code 0.70-1.30 [facility] Work Phone: [phone] eGFR (non-black) 84 mL/min/{1.73_m2} Invalid Interpretation Code >60 [facility] Work Phone: [phone] eGFR (non-black) 70 mL/min/{1.73_m2} Invalid Interpretation Code >60 [facility] Work Phone: [phone] Globulin 3.0 g/dL Invalid Interpretation Code 2.3-3.5 [employer] [facility] Work Phone: [phone] Glucose mass conc 131 mg/dL High 70-110 [facility] Work Phone: [phone] Potassium molar conc 3.9 mmol/L Invalid Interpretation Code 3.5-5.1 [facility] [facility] Work Phone: [phone] Protein 6.8 g/dL Invalid Interpretation Code 6.4-8.2 [facility] Work Phone: [phone] Sodium 141 mmol/L Invalid Interpretation Code 136-145 [facility] [facility] Work Phone: [phone] Urea nitrogen 24 mg/dL High 7-18 [facility] Work Phone: [phone] Lab Report: Hemoglobin A1con 01-03-2017 Hemoglobin A1c/Hemoglobin.total mass fraction (Bld) 6.1 % Invalid Interpretation Code 4.2-6.3 [facility] Work Phone: [phone] Lab Report: Microalb:Creat R atio,Random URon 01-03-2017 ACR (microalbumin/creatinin e) ratio 27.4 MG/G CRE Invalid Interpretation Code <30 mg/g CRE [employer] Work Phone: [phone] Urine, creatinine 156.00 mg/dL Invalid Interpretation Code NO RANGE EST. [employer] Phone: [phone] Urine, microalbumin 4.28 mg/dL Invalid Interpretation Code Units converted. See lab report for original value. 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 Albumin/Globulin Ratio 1.0 {ratio} Invalid Interpretation Code [employer] Phone: [phone] Cholesterol 164 mg/dL Invalid Interpretation Code [employer] Phone: [phone] eGFR (non-black) 61 mL/min/{1.73_m2} Invalid Interpretation Code [employer] Phone: [phone] eGFR (non-black) 74 mL/min/{1.73_m2} Invalid Interpretation Code [employer] Phone: [phone] Erythrocyte distribution width Auto Ratio (RBC) 13.0 % Invalid Interpretation Code [employer] Phone: [phone] Erythrocytes (RBC) 4.71 10*6/uL Invalid Interpretation Code [employer] Phone: [phone] Globulin 3.5 g/dL Invalid Interpretation Code [employer] Phone: [phone] HDL Cholesterol 43 mg/dL Invalid Interpretation Code [employer] Phone: [phone] Hematocrit (HCT) 42.4 % Invalid Interpretation Code [employer] Phone: [phone] Hemoglobin mass conc (Bld) 14.3 g/dL Invalid Interpretation Code [employer] Phone: [phone] LDL Cholesterol 93 mg/dL Invalid Interpretation Code [employer] Phone: [phone] MCH 30.4 pg Invalid Interpretation Code [employer] Phone: [phone] MCHC mass conc (RBC) 33.7 g/dL Invalid Interpretation Code [employer] Phone: [phone] MCV 90.0 fL Invalid Interpretation Code [employer] Phone: [phone] Platelets 249 10*3/mm3 Invalid Interpretation Code [employer] Phone: [phone] PMV by Eleanor 10.7 fL Invalid Interpretation Code [employer] Phone: [phone] Triglyceride 138 mg/dL Invalid Interpretation Code [employer] Phone: [phone] very low density lipoproteins 28 mg/dL Invalid Interpretation Code [employer] Phone: [phone] WBC (Leukocytes) 7.4 10*3/uL Invalid Interpretation Code [employer] Phone: [phone] Lab Report: Erythrocyte Sed Rateon 01-23-2016 Erythrocyte sedimentation rate 9 mm/h Invalid Interpretation Code 0-20 [employer] Phone: [phone] Office Visit: 3rd toe(s) ost eo- L 3rd distal fracture/osteo- MSSA;Levoquin D8on 01-23-2016 Smoking cessation education (procedure) yes Invalid Interpretation Code [employer] Phone: [phone] Lab Report: Liver Profileon 11-20-2015 Bilirubin (direct) 0.13 mg/dL Invalid Interpretation Code 0.00-0.30 [employer] Phone: [phone] Office Visit: [facility] 11-17-19 16 General cardiovascular disease 10Y risk [#] [place].D'Agost[place] 27 % Invalid Interpretation Code [employer] Phone: [phone] Replaced Document: [employer] E CG Observationson 11-17-2015 EKG QRS axis 35 deg Invalid Interpretation Code [employer] Phone: [phone] Interpretation Sinus Rhythm - occasional PAC # PACs = 1.WITHIN NORMAL LIMITS Invalid Interpretation Code [employer] Phone: [phone] P [place] 46 deg Invalid Interpretation Code [employer] Phone: [phone] NM Interval 132 ms Invalid Interpretation Code [employer] Phone: [phone] Pulse (Heart Rate) 60 /min Invalid Interpretation Code [employer] Phone: [phone] QRS Duration 102 ms Invalid Interpretation Code [employer] Phone: [phone] QT Interval new path ms Invalid Interpretation Code [employer] Phone: [phone] T [place] 35 deg Invalid Interpretation Code [employer] Phone: [phone] Lab Report: Renal Profileon 08-25-2015 PHOS 3.0 mg/dL Invalid Interpretation Code 2.5-4.9 [employer] Phone: [phone] Replaced Document: (P) CBC W /Diff, Automatedon 08-25-2015 Absolute Neut 5.0 X10 3/UL Invalid Interpretation Code 2.0-7.7 [employer] Phone: Basophils/100 WBC Auto (Bld) 0.6 % Invalid Interpretation Code 0-1 [employer] Phone: [phone] Eosinophils/100 leukocytes 14.7 % High 0-5 [employer] Phone: [phone] Immature granulocytes/100 WBC (Bld) 0.300 % Invalid Interpretation Code 0.0-0.9 [employer] Phone: [phone] Lymphocytes 1.60 X10 3/UL Invalid Interpretation Code 0.83-4.51 [employer] Phone: [phone] Lymphocytes/100 leukocytes 18.4 % Low 19-41 [employer] Phone: [phone] Monocytes/100 leukocytes 8.8 % Invalid Interpretation Code 0-10 [employer] Phone: [phone] Neutrophils/100 WBC Auto (Bld) 57.2 % Invalid Interpretation Code 47-70 [employer] Phone: [phone] RDW SD 42.6 fL Invalid Interpretation Code 35.1-43.9 [employer] Phone: [phone] Office Visiton 05-30-2015 cardiac risk group C Invalid Interpretation Code [employer] Phone: [phone] Office Visit: [facility] 06-22-20 14 Thyroid stimulating hormone (TSH) 1.67 u[iU]/mL Invalid Interpretation Code [employer] Phone: [phone] External Other: [employer]od of [employer] 06-03-2014 methcontact secmsg Invalid Interpretation Code [employer] Phone: [phone] Replaced Document: [employer] E CG Observationson 06-11-2013 Pulse (Heart Rate) 400 ms Invalid Interpretation Code [employer] Phone: [phone] Clinical Lists Update: 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 [facility] Work Phone: Bacteria identified Anaer cx Nom (Unsp spec) Anaerobic Culture Anaerococcus prevotii [facility] Work Phone: Anaerobic Culture Anaerobic cocci [facility] Work Phone: [phone] Anaerobic microbial culture No anaerobic bacteria isolated. [facility] Work Phone: Bacteria identified Cx Nom ( Wound) Wound Culture Staphylococcus aureus [facility] Work Phone: [phone] Wound Culture Staphylococcus epidermidis [facility] Work Phone: [phone] Wound Culture Corynebacterium species [facility] Work Phone: [phone] Wound Culture Pseudomonas aeroginosa [facility] Work Phone: [phone] Wound Culture Staphylococcus lugdunensis [facility] Work Phone: [phone] Gram stain for investigation of transfusion reaction Microscopic observation Gram stain Nom (Unsp spec) [facility] Work Phone: Vital Signs Date Time Vital Sign Value Performing Clinician Facility 06-21-2025 20:05-0400 Body temperature 98.1 [degF] Dr. Zach Turner MD Work Phone: [facility] 06-21-2025 20:05-0400 Diastolic blood pressure 68 mm[Hg] Dr. Zach Turner MD Work Phone: [facility] 06-21-2025 20:05-0400 Heart rate 70 /min Dr. Zach Turner MD Work Phone: [facility] 06-21-2025 20:05-0400 Respiratory rate 18 /min Dr. Zach Turner MD Work Phone: [facility] 06-21-2025 20:05-0400 SaO2% (BldA) [Mass fraction] 97 % Dr. Zach Turner MD Work Phone: [facility] 06-21-2025 20:05-0400 Systolic blood pressure 148 mm[Hg] Dr. Zach Turner MD Work Phone: [facility] 06-21-2025 17:20-0400 Body mass index (BMI) [Ratio] 24.4 kg/m2 Dr. Zach Turner MD Work Phone: [facility] 06-21-2025 17:20-0400 Body weight 81.[address] Zach Turner MD Work Phone: [facility] 06-21-2025 15:52-0400 Body height 182.[address] Zach Turner MD Work Phone: [facility] 06-12-2025 11:17-0400 Diastolic blood pressure 82 mm[Hg] Georgina Moore MD Work Phone: [facility] 06-12-2025 11:17-0400 Heart rate 82 /min Georgina Moore MD Work Phone: [facility] 06-12-2025 11:17-0400 Systolic blood pressure 135 mm[Hg] Georgina Moore MD Work Phone: [facility] 06-07-2025 14:47-0400 Body temperature 98.3 [degF] Dr. Zach Turner MD Work Phone: 7(963)957-226764 [place] [address] 06-07-2025 14:47-0400 Diastolic blood pressure 56 mm[Hg] Dr. Zach Turner MD Work Phone: 8(351)584-452270 [address] 06-07-2025 14:47-0400 Heart rate 78 /min Dr. Zach Turner MD Work Phone: 3(832)180-751364 [place] [address] 06-07-2025 14:47-0400 Respiratory rate 16 /min Dr. Zach Turner MD Work Phone: [facility] 06-07-2025 14:47-0400 SaO2% (BldA) [Mass fraction] 97 % Dr. Zach Turner MD Work Phone: [facility] 06-07-2025 14:47-0400 Systolic blood pressure 108 mm[Hg] Dr. Zach Turner MD Work Phone: [facility] 06-07-2025 10:57-0400 Body height 182.[address] Zach Turner MD Work Phone: [facility] 06-07-2025 10:57-0400 Body mass index (BMI) [Ratio] 25.4 kg/m2 Dr. Zach Turner MD Work Phone: [facility] 06-07-2025 10:57-0400 Body weight 85.[address] Zach Turner MD Work Phone: [facility] 05-30-2025 11:43-0400 Body height 182.9 cm Christina Cartagena MD Work Phone: [facility] 05-30-2025 11:43-0400 Body mass index (BMI) [Ratio] 25.67 kg/m2 Christina Cartagena MD Work Phone: [facility] 05-30-2025 11:43-0400 Body weight 85.87 kg Christina Cartagena MD Work Phone: [facility] 05-30-2025 11:43-0400 Diastolic blood pressure 76 mm[Hg] Christina Cartagena MD Work Phone: [facility] 05-30-2025 11:43-0400 Heart rate 71 /min Christina Cartagena MD Work Phone: [facility] 05-30-2025 11:43-0400 SaO2% (BldA) [Mass fraction] 98 % Christina Cartagena MD Work Phone: [facility] 05-30-2025 11:43-0400 Systolic blood pressure 110 mm[Hg] Christina Cartagena MD Work Phone: [facility] 04-17-2025 14:37-0400 Heart rate 84 /min Dr. Zach Turner MD Work Phone: [facility] 04-17-2025 14:36-0400 Body temperature 98.4 [degF] Dr. Zach Turner MD Work Phone: [facility] 04-17-2025 14:36-0400 Diastolic blood pressure 79 mm[Hg] Dr. Zach Turner MD Work Phone: 3(144)122-560664 [place] [address] 04-17-2025 14:36-0400 Respiratory rate 16 /min Dr. Zach Turner MD Work Phone: 8(311)580-469613 [place] [address] 04-17-2025 14:36-0400 SaO2% (BldA) [Mass fraction] 98 % Dr. Zach Turner MD Work Phone: 4(811)051-639713 [place] [address] 04-17-2025 14:36-0400 Systolic blood pressure 141 mm[Hg] Dr. Zach Turner MD Work Phone: 2(528)724-687413 [place] [address] 04-17-2025 06:00-0400 Body mass index (BMI) [Ratio] 26.7 kg/m2 Dr. Zach Turner MD Work Phone: 6(790)983-285013 [place] [address] 04-17-2025 06:00-0400 Body weight 89.[address] Zach Turner MD Work Phone: 3(464)150-878013 [place] [address] 04-16-2025 19:54-0400 Inhaled oxygen flow rate 2 L/min Dr. Zach Turner MD Work Phone: 5(027)828-639013 [place] [address] 04-16-2025 15:44-0400 Body height 182.[address] Zach Turner MD Work Phone: 2(409)799-055613 [place] [address] 04-15-2025 17:55-0400 Body temperature 97.9 [degF] Dr. Zach Turner MD Work Phone: 3(240)827-834613 [place] [address] 04-15-2025 17:55-0400 Diastolic blood pressure 90 mm[Hg] Dr. Zach Turner MD Work Phone: 4(015)463-411813 [place] [address] 04-15-2025 17:55-0400 Heart rate 63 /min Dr. Zach Turner MD Work Phone: 1(346)007-603413 [place] [address] 04-15-2025 17:55-0400 Respiratory rate 10 /min Dr. Zach Turner MD Work Phone: 0(738)765-295313 [place] [address] 04-15-2025 17:55-0400 SaO2% (BldA) [Mass fraction] 99 % Dr. Zach Turner MD Work Phone: 4(092)027-864813 [place] [address] 04-15-2025 17:55-0400 Systolic blood pressure 143 mm[Hg] Dr. Zach Turner MD Work Phone: 8(233)696-648213 [place] [address] 04-15-2025 15:13-0400 Body height 182.[address] Zach Turner MD Work Phone: 5(365)220-802313 [place] [address] 04-15-2025 15:13-0400 Body mass index (BMI) [Ratio] 27 kg/m2 Dr. Zach Turner MD Work Phone: 8(889)903-909413 [place] [address] 04-15-2025 15:13-0400 Body weight 90.[address] Zach Turner MD Work Phone: 5(446)750-155213 [place] [address] 04-04-2025 13:13-0400 Body temperature 97.8 [degF] Dr. Zach Turner MD Work Phone: 8(353)004-494713 [place] [address] 04-04-2025 13:13-0400 Diastolic blood pressure 71 mm[Hg] Dr. Zach Turner MD Work Phone: 1(948)881-426213 [place] [address] 04-04-2025 13:13-0400 Heart rate 60 /min Dr. Zach Turner MD Work Phone: 0(294)274-517213 [place] [address] 04-04-2025 13:13-0400 Respiratory rate 16 /min Dr. Zach Turner MD Work Phone: 3(391)121-105113 [place] [address] 04-04-2025 13:13-0400 SaO2% (BldA) [Mass fraction] 100 % Dr. Zach Turner MD Work Phone: 9(840)592-244313 [place] [address] 04-04-2025 13:13-0400 Systolic blood pressure 129 mm[Hg] Dr. Zach Turner MD Work Phone: 0(671)279-888413 [place] [address] 04-04-2025 10:12-0400 Body mass index (BMI) [Ratio] 26.2 kg/m2 Dr. Zach Turner MD Work Phone: 9(129)495-428513 [place] [address] 04-04-2025 10:12-0400 Body weight 87.[address] Zach Turner MD Work Phone: 3(778)493-401813 [place] [address] 03-08-2025 11:21-0400 Body height 182.[address] Zach Turner MD Work Phone: [facility] 03-08-2025 11:21-0400 Body mass index (BMI) [Ratio] 25 kg/m2 Dr. Zach Turner MD Work Phone: [facility] 03-08-2025 11:21-0400 Body weight 83.[address] Zach Turner MD Work Phone: [facility] 03-08-2025 11:21-0400 Diastolic blood pressure 71 mm[Hg] Dr. Zach Turner MD Work Phone: [facility] 03-08-2025 11:21-0400 Heart rate 75 /min Dr. Zach Turner MD Work Phone: [facility] 03-08-2025 11:21-0400 Respiratory rate 18 /min Dr. Zach Turner MD Work Phone: [facility] 03-08-2025 11:21-0400 SaO2% (BldA) [Mass fraction] 98 % Dr. Zach Turner MD Work Phone: [facility] 03-08-2025 11:21-0400 Systolic blood pressure 111 mm[Hg] Dr. Zach Turner MD Work Phone: [facility] 02-28-2025 11:01-0400 Body mass index (BMI) [Ratio] 24.63 kg/m2 Christina Cartagena MD Work Phone: [facility] 02-28-2025 11:01-0400 Body weight 82.37 kg Christina Cartagena MD Work Phone: [facility] 02-28-2025 11:01-0400 Diastolic blood pressure 58 mm[Hg] Christina Cartagena MD Work Phone: [facility] 02-28-2025 11:01-0400 Systolic blood pressure 110 mm[Hg] Christina Cartagena MD Work Phone: [facility] 02-21-2025 09:58-0400 Body height 182.[address] Zach Turner MD Work Phone: [facility] 02-21-2025 09:58-0400 Body mass index (BMI) [Ratio] 24.8 kg/m2 Dr. Zach Turner MD Work Phone: [facility] 02-21-2025 09:58-0400 Body temperature 96.8 [degF] Dr. Zach Turner MD Work Phone: [facility] 02-21-2025 09:58-0400 Body weight 83.[address] Zach Turner MD Work Phone: [facility] 02-21-2025 09:58-0400 Diastolic blood pressure 65 mm[Hg] Dr. Zach Turner MD Work Phone: [facility] 02-21-2025 09:58-0400 Heart rate 71 /min Dr. Zach Turner MD Work Phone: [facility] 02-21-2025 09:58-0400 Respiratory rate 16 /min Dr. Zach Turner MD Work Phone: [facility] 02-21-2025 09:58-0400 SaO2% (BldA) [Mass fraction] 100 % Dr. Zach Turner MD Work Phone: [facility] 02-21-2025 09:58-0400 Systolic blood pressure 111 mm[Hg] Dr. Zach Turner MD Work Phone: [facility] 01-25-2025 12:01-0400 Body height 182.9 cm Coco Shah Jr., DO Work Phone: [facility] 01-25-2025 12:01-0400 Body mass index (BMI) [Ratio] 25.36 kg/m2 Coco Shah Jr., DO Work Phone: [facility] 01-25-2025 12:01-0400 Body weight 84.82 kg Coco Shah Jr., DO Work Phone: [facility] 01-25-2025 12:01-0400 Diastolic blood pressure 60 mm[Hg] Coco Shah Jr., DO Work Phone: [facility] 01-25-2025 12:01-0400 Systolic blood pressure 110 mm[Hg] Coco Shah Jr., DO Work Phone: [facility] 01-09-2025 09:59-0500 Body temperature 97.5 [degF] Dr. Zach Turner MD Work Phone: [facility] 01-09-2025 09:59-0500 Body weight 87.[address] Zach Turner MD Work Phone: [facility] 01-09-2025 09:59-0500 Diastolic blood pressure 69 mm[Hg] Dr. Zach Turner MD Work Phone: [facility] 01-09-2025 09:59-0500 Heart rate 78 /min Dr. Zach Turner MD Work Phone: [facility] 01-09-2025 09:59-0500 Respiratory rate 16 /min Dr. Zach Turner MD Work Phone: [facility] 01-09-2025 09:59-0500 SaO2% (BldA) [Mass fraction] 99 % Dr. Zach Turner MD Work Phone: [facility] 01-09-2025 09:59-0500 Systolic blood pressure 104 mm[Hg] Dr. Zach Turner MD Work Phone: [facility] 12-25-2024 10:15-0500 Body mass index (BMI) [Ratio] 25.6 kg/m2 Dr. Zach Turner MD Work Phone: [facility] 12-25-2024 10:15-0500 Body temperature 97.3 [degF] Dr. Zach Turner MD Work Phone: [facility] 12-25-2024 10:15-0500 Body weight 85.[address] Zach Turner MD Work Phone: [facility] 12-25-2024 10:15-0500 Diastolic blood pressure 79 mm[Hg] Dr. Zach Turner MD Work Phone: 8(886)318-152764 [place] [address] 12-25-2024 10:15-0500 Heart rate 79 /min Dr. Zach Turner MD Work Phone: 8(957)407-348313 [place] [address] 12-25-2024 10:15-0500 Respiratory rate 16 /min Dr. Zach Turner MD Work Phone: 2(043)761-300713 [place] [address] 12-25-2024 10:15-0500 SaO2% (BldA) [Mass fraction] 98 % Dr. Zach Turner MD Work Phone: 4(854)349-376513 [place] [address] 12-25-2024 10:15-0500 Systolic blood pressure 144 mm[Hg] Dr. Zach Turner MD Work Phone: 5(213)546-597213 [place] [address] 11-09-2024 10:14-0500 Body mass index (BMI) [Ratio] 27.7 kg/m2 Dr. Zach Turner MD Work Phone: 6(849)479-334764 [place] [address] 11-09-2024 10:14-0500 Body temperature 97 [degF] Dr. Zach Turner MD Work Phone: 8(004)844-246313 [place] [address] 11-09-2024 10:14-0500 Body weight 92.[address] Zach Turner MD Work Phone: 8(764)493-364513 [place] [address] 11-09-2024 10:14-0500 Diastolic blood pressure 68 mm[Hg] Dr. Zach Turner MD Work Phone: 0(931)648-446264 [place] [address] 11-09-2024 10:14-0500 Heart rate 84 /min Dr. Zach Turner MD Work Phone: 1(276)385-438213 [place] [address] 11-09-2024 10:14-0500 Respiratory rate 16 /min Dr. Zach Turner MD Work Phone: 6(227)642-482164 [place] [address] 11-09-2024 10:14-0500 SaO2% (BldA) [Mass fraction] 97 % Dr. Zach Turner MD Work Phone: 1(845)635-184864 [place] [address] 11-09-2024 10:14-0500 Systolic blood pressure 116 mm[Hg] Dr. Zach Turner MD Work Phone: [facility] 05-07-2024 11:55-0400 Body height 182.9 cm Coco Shah Jr., DO Work Phone: [facility] 05-07-2024 11:55-0400 Body mass index (BMI) [Ratio] 28.89 kg/m2 Coco Shah Jr., DO Work Phone: [facility] 05-07-2024 11:55-0400 Body weight 96.62 kg Coco Shah Jr., DO Work Phone: [facility] 05-07-2024 11:55-0400 Diastolic blood pressure 70 mm[Hg] Coco Shah Jr., DO Work Phone: [facility] 05-07-2024 11:55-0400 Heart rate 83 /min Coco Shah Jr., DO Work Phone: [facility] 05-07-2024 11:55-0400 SaO2% (BldA) [Mass fraction] 98 % Coco Shah Jr., DO Work Phone: [facility] 05-07-2024 11:55-0400 Systolic blood pressure 132 mm[Hg] Cooc Shah Jr., DO Work Phone: [facility] 02-24-2024 10:11-0400 Body height 182.88 cm [facility] 02-24-2024 10:11-0400 Body mass index (BMI) [Ratio] 28.6 kg/m2 [facility] 02-24-2024 10:11-0400 Body temperature 97.2 [degF] [facility] 02-24-2024 10:11-0400 Body weight 95.88 kg [facility] 02-24-2024 10:11-0400 Diastolic blood pressure 52 mm[Hg] [facility] 02-24-2024 10:11-0400 Heart rate 80 /min [facility] 02-24-2024 10:11-0400 Respiratory rate 16 /min [facility] 02-24-2024 10:11-0400 SaO2% (BldA) [Mass fraction] 98 % [facility] 02-24-2024 10:11-0400 Systolic blood pressure 125 mm[Hg] [facility] 01-13-2024 10:21-0500 Body height 182.88 cm [facility] 01-13-2024 10:21-0500 Body mass index (BMI) [Ratio] 28 kg/m2 [facility] 01-13-2024 10:21-0500 Body temperature 97.4 [degF] [facility] 01-13-2024 10:21-0500 Body weight 93.89 kg [facility] 01-13-2024 10:21-0500 Diastolic blood pressure 79 mm[Hg] [facility] 01-13-2024 10:21-0500 Heart rate 72 /min [facility] 01-13-2024 10:21-0500 Respiratory rate 16 /min [facility] 01-13-2024 10:21-0500 SaO2% (BldA) [Mass fraction] 98 % [facility] 01-13-2024 10:21-0500 Systolic blood pressure 134 mm[Hg] [facility] 11-11-2023 10:04-0500 Body height 182.88 cm [facility] 11-11-2023 10:04-0500 Body mass index (BMI) [Ratio] 29 kg/m2 [facility] 11-11-2023 10:04-0500 Body temperature 97.4 [degF] [facility] 11-11-2023 10:04-0500 Body weight 97.25 kg [facility] 11-11-2023 10:04-0500 Diastolic blood pressure 63 mm[Hg] [facility] 11-11-2023 10:04-0500 Heart rate 77 /min [facility] 11-11-2023 10:04-0500 Respiratory rate 16 /min [facility] 11-11-2023 10:04-0500 SaO2% (BldA) [Mass fraction] 98 % [facility] 11-11-2023 10:04-0500 Systolic blood pressure 167 mm[Hg] [facility] 10-26-2023 14:38-0500 Body height 182.9 cm Coco Shah Jr., DO Work Phone: [facility] 10-26-2023 14:38-0500 Body mass index (BMI) [Ratio] 30.53 kg/m2 Coco Shah Jr., DO Work Phone: [facility] 10-26-2023 14:38-0500 Body temperature 98.71 [degF] Coco Shah Jr., DO Work Phone: [facility] 10-26-2023 14:38-0500 Body weight 102.1 kg Coco Shah Jr., DO Work Phone: [facility] 10-26-2023 14:38-0500 Diastolic blood pressure 78 mm[Hg] Coco Shah Jr., DO Work Phone: [facility] 10-26-2023 14:38-0500 Systolic blood pressure 118 mm[Hg] Coco Shah Jr., DO Work Phone: [facility] 09-30-2023 13:45-0500 Body temperature 97.1 [degF] [facility] 09-30-2023 13:45-0500 Diastolic blood pressure 67 mm[Hg] [facility] 09-30-2023 13:45-0500 Heart rate 75 /min [facility] 09-30-2023 13:45-0500 Systolic blood pressure 130 mm[Hg] [facility] 09-30-2023 10:09-0500 Body height 182.88 cm [facility] 09-30-2023 10:09-0500 Body mass index (BMI) [Ratio] 30.1 kg/m2 [facility] 09-30-2023 10:09-0500 Body weight 100.78 kg [facility] 09-30-2023 10:09-0500 Respiratory rate 16 /min [facility] 09-30-2023 10:09-0500 SaO2% (BldA) [Mass fraction] 99 % [facility] 08-19-2023 10:09-0400 Body height 182.88 cm [facility] 08-19-2023 10:09-0400 Body mass index (BMI) [Ratio] 29.1 kg/m2 [facility] 08-19-2023 10:09-0400 Body temperature 96.4 [degF] [facility] 08-19-2023 10:09-0400 Body weight 97.43 kg [facility] 08-19-2023 10:09-0400 Diastolic blood pressure 75 mm[Hg] [facility] 08-19-2023 10:09-0400 Heart rate 94 /min [facility] 08-19-2023 10:09-0400 Respiratory rate 16 /min [facility] 08-19-2023 10:09-0400 SaO2% (BldA) [Mass fraction] 99 % [facility] 08-19-2023 10:09-0400 Systolic blood pressure 143 mm[Hg] [facility] 07-08-2023 10:24-0400 Body height 182.88 cm [facility] 07-08-2023 10:24-0400 Body mass index (BMI) [Ratio] 29 kg/m2 [facility] 07-08-2023 10:24-0400 Body temperature 97.6 [degF] [facility] 07-08-2023 10:24-0400 Body weight 97.15 kg [facility] 07-08-2023 10:24-0400 Diastolic blood pressure 64 mm[Hg] [facility] 07-08-2023 10:24-0400 Heart rate 86 /min [facility] 07-08-2023 10:24-0400 Respiratory rate 16 /min [facility] 07-08-2023 10:24-0400 SaO2% (BldA) [Mass fraction] 98 % [facility] 07-08-2023 10:24-0400 Systolic blood pressure 125 mm[Hg] [facility] 07-04-2023 12:52-0400 Body height 182.9 cm Coco Shah JrKeerthi, DO Work Phone: [facility] 07-04-2023 12:52-0400 Body mass index (BMI) [Ratio] 30.53 kg/m2 Coco Shah Jr., DO Work Phone: [facility] 07-04-2023 12:52-0400 Body temperature 97.81 [degF] Coco Shah JrKeerthi, DO Work Phone: [facility] 07-04-2023 12:52-0400 Body weight 102.1 kg Coco Shah , DO Work Phone: [facility] 07-04-2023 12:52-0400 Diastolic blood pressure 84 mm[Hg] Coco Shah , DO Work Phone: [facility] 07-04-2023 12:52-0400 Systolic blood pressure 118 mm[Hg] Coco Shah JrKeerthi, DO Work Phone: [facility] 05-27-2023 09:58-0400 Body height 182.[address] Zach Turner Work Phone: [facility] 05-27-2023 09:58-0400 Body mass index (BMI) [Ratio] 28.6 kg/m2 Dr. Zach Turner Work Phone: [facility] 05-27-2023 09:58-0400 Body temperature 97.2 [degF] Dr. Zach Turner Work Phone: [facility] 05-27-2023 09:58-0400 Body weight 95.[address] Zach Turner Work Phone: [facility] 05-27-2023 09:58-0400 Diastolic blood pressure 52 mm[Hg] Dr. Zach Turner Work Phone: [facility] 05-27-2023 09:58-0400 Heart rate 62 /min Dr. Zach Turner Work Phone: [facility] 05-27-2023 09:58-0400 Respiratory rate 16 /min Dr. Zach Turner Work Phone: [facility] 05-27-2023 09:58-0400 SaO2% (BldA) [Mass fraction] 96 % Dr. Zach Turner Work Phone: [facility] 05-27-2023 09:58-0400 Systolic blood pressure 116 mm[Hg] Dr. Zach Turner Work Phone: [facility] 03-25-2023 09:41-0400 Body height 182.[address] Zach Turner Work Phone: [facility] 03-25-2023 09:41-0400 Body mass index (BMI) [Ratio] 29 kg/m2 Dr. Zach Turner Work Phone: [facility] 03-25-2023 09:41-0400 Body weight 97.[address] Zach Turner Work Phone: [facility] 03-25-2023 09:41-0400 Diastolic blood pressure 62 mm[Hg] Dr. Zach Turner Work Phone: [facility] 03-25-2023 09:41-0400 Heart rate 68 /min Dr. Zach Turner Work Phone: [facility] 03-25-2023 09:41-0400 Respiratory rate 16 /min Dr. Zach Turner Work Phone: [facility] 03-25-2023 09:41-0400 SaO2% (BldA) [Mass fraction] 100 % Dr. Zach Turner Work Phone: [facility] 03-25-2023 09:41-0400 Systolic blood pressure 137 mm[Hg] Dr. Zach Turner Work Phone: [facility] 02-27-2023 08:44-0400 Heart rate 68 /min [facility] 02-27-2023 08:28-0400 Body temperature 98 [degF] [facility] 02-27-2023 08:28-0400 Diastolic blood pressure 72 mm[Hg] [facility] 02-27-2023 08:28-0400 Respiratory rate 18 /min [facility] 02-27-2023 08:28-0400 SaO2% (BldA) [Mass fraction] 100 % [facility] 02-27-2023 08:28-0400 Systolic blood pressure 156 mm[Hg] [facility] 02-26-2023 10:29-0400 Body height 182.88 cm [facility] 02-26-2023 10:29-0400 Body weight 95.7 kg [facility] 02-25-2023 17:23-0400 Body mass index (BMI) [Ratio] 28.6 kg/m2 [facility] 02-25-2023 14:52-0400 Body temperature 98.2 [degF] [facility] 02-25-2023 14:52-0400 Diastolic blood pressure 62 mm[Hg] [facility] 02-25-2023 14:52-0400 Heart rate 82 /min [facility] 02-25-2023 14:52-0400 Respiratory rate 18 /min [facility] 02-25-2023 14:52-0400 SaO2% (BldA) [Mass fraction] 96 % [facility] 02-25-2023 14:52-0400 Systolic blood pressure 145 mm[Hg] [facility] 02-25-2023 12:02-0400 Body height 182.88 cm [facility] 02-25-2023 12:02-0400 Body mass index (BMI) [Ratio] 29 kg/m2 [facility] 02-25-2023 12:02-0400 Body weight 97.29 kg [facility] 02-11-2023 09:33-0400 Body height 182.88 cm [facility] 02-11-2023 09:33-0400 Body mass index (BMI) [Ratio] 29 kg/m2 [facility] 02-11-2023 09:33-0400 Body temperature 97 [degF] [facility] 02-11-2023 09:33-0400 Body weight 96.88 kg [facility] 02-11-2023 09:33-0400 Diastolic blood pressure 59 mm[Hg] [facility] 02-11-2023 09:33-0400 Heart rate 45 /min [facility] 02-11-2023 09:33-0400 Respiratory rate 16 /min [facility] 02-11-2023 09:33-0400 SaO2% (BldA) [Mass fraction] 100 % [facility] 02-11-2023 09:33-0400 Systolic blood pressure 154 mm[Hg] [facility] 01-06-2023 10:40-0500 Body temperature 95.1 [degF] [facility] 01-06-2023 10:40-0500 Diastolic blood pressure 75 mm[Hg] [facility] 01-06-2023 10:40-0500 Heart rate 57 /min [facility] 01-06-2023 10:40-0500 Systolic blood pressure 96 mm[Hg] [facility] 12-31-2022 10:24-0500 Body mass index (BMI) [Ratio] 29.1 kg/m2 [facility] 12-31-2022 10:24-0500 Body temperature 96.6 [degF] [facility] 12-31-2022 10:24-0500 Body weight 97.52 kg [facility] 12-31-2022 10:24-0500 Diastolic blood pressure 78 mm[Hg] [facility] 12-31-2022 10:24-0500 Heart rate 56 /min [facility] 12-31-2022 10:24-0500 Respiratory rate 16 /min [facility] 12-31-2022 10:24-0500 SaO2% (BldA) [Mass fraction] 100 % [facility] 12-31-2022 10:24-0500 Systolic blood pressure 149 mm[Hg] [facility] 12-30-2022 10:20-0500 Respiratory rate 18 /min [facility] 12-01-2022 09:50-0500 Body temperature 96.3 [degF] Dr. Zach Turner Work Phone: [facility] 12-01-2022 09:50-0500 Diastolic blood pressure 67 mm[Hg] Dr. Zach Turner Work Phone: [facility] 12-01-2022 09:50-0500 Heart rate 67 /min Dr. Zach Turner Work Phone: 4(627)198-504270 [address] 12-01-2022 09:50-0500 Systolic blood pressure 139 mm[Hg] Dr. Zach Turner Work Phone: 7(658)486-801513 [place] [address] 11-24-2022 09:40-0500 Respiratory rate 16 /min Dr. Zach Turner Work Phone: 1(029)519-133970 [address] 11-19-2022 10:18-0500 Body height 182.[address] Zach Turner Work Phone: 5(636)[phone] [place] [address] 11-19-2022 10:18-0500 Body mass index (BMI) [Ratio] 30.4 kg/m2 Dr. Zach Turner Work Phone: 7(751)130-300113 [place] [address] 11-19-2022 10:18-0500 Body temperature 97.3 [degF] Dr. Zach Turner Work Phone: 7(501)935-583013 [place] [address] 11-19-2022 10:18-0500 Body weight 101.[address] Zach Turner Work Phone: 2(329)084-038813 [place] [address] 11-19-2022 10:18-0500 Diastolic blood pressure 67 mm[Hg] Dr. Zach Turner Work Phone: 0(415)747-950870 [address] 11-19-2022 10:18-0500 Heart rate 60 /min Dr. Zach Turner Work Phone: 0(918)450-436164 [place] [address] 11-19-2022 10:18-0500 Respiratory rate 18 /min Dr. Zach Turner Work Phone: 3(208)751-314713 [place] [address] 11-19-2022 10:18-0500 SaO2% (BldA) [Mass fraction] 100 % Dr. Zach Turner Work Phone: 9(836)707-164764 [place] [address] 11-19-2022 10:18-0500 Systolic blood pressure 151 mm[Hg] Dr. Zach Turner Work Phone: 9(375)029-145164 [place] [address] 11-10-2022 09:44-0500 Body temperature 96.9 [degF] Dr. Zach Turner Work Phone: [facility] 11-10-2022 09:44-0500 Diastolic blood pressure 86 mm[Hg] Dr. Zach Turner Work Phone: [facility] 11-10-2022 09:44-0500 Heart rate 75 /min Dr. Zach Turner Work Phone: [facility] 11-10-2022 09:44-0500 Systolic blood pressure 152 mm[Hg] Dr. Zach Turner Work Phone: [facility] 10-27-2022 09:47-0500 Respiratory rate 16 /min Dr. Zach Turner Work Phone: [facility] 10-13-2022 10:01-0500 Body temperature 95.6 [degF] Dr. Zach Turner Work Phone: [facility] 10-13-2022 10:01-0500 Diastolic blood pressure 77 mm[Hg] Dr. Zach Turner Work Phone: [facility] 10-13-2022 10:01-0500 Heart rate 60 /min Dr. Zach Turner Work Phone: [facility] 10-13-2022 10:01-0500 Systolic blood pressure 154 mm[Hg] Dr. Zach Turner Work Phone: [facility] 10-08-2022 10:12-0500 Body height 182.[address] Zach Turner Work Phone: [facility] Work Phone: 10-08-2022 10:12-0500 Body mass index (BMI) [Ratio] 30.2 kg/m2 Dr. Zach Turner Work Phone: [facility] 10-08-2022 10:12-0500 Body temperature 96.2 [degF] Dr. Zach Turner Work Phone: [facility] 10-08-2022 10:12-0500 Body weight 101.[address] Zach Turner Work Phone: [facility] 10-08-2022 10:12-0500 Diastolic blood pressure 63 mm[Hg] Dr. Zach Turner Work Phone: [facility] 10-08-2022 10:12-0500 Heart rate 64 /min Dr. Zach Turner Work Phone: [facility] 10-08-2022 10:12-0500 Respiratory rate 16 /min Dr. Zach Turner Work Phone: [facility] 10-08-2022 10:12-0500 SaO2% (BldA) [Mass fraction] 97 % Dr. Zach Turner Work Phone: [facility] 10-08-2022 10:12-0500 Systolic blood pressure 114 mm[Hg] Dr. Zach Turner Work Phone: [facility] 10-06-2022 10:07-0500 Respiratory rate 16 /min Dr. Zach Turner Work Phone: [facility] 09-20-2022 13:00-0500 Body height 182.9 cm Coco Shah Jr., DO Work Phone: [facility] 09-20-2022 13:00-0500 Body mass index (BMI) [Ratio] 30.52 kg/m2 Coco Shah Jr., DO Work Phone: [facility] 09-20-2022 13:00-0500 Body temperature 98.01 [degF] Coco Shah Jr., DO Work Phone: [facility] 09-20-2022 13:00-0500 Body weight 102.06 kg Coco Shah Jr., DO Work Phone: [facility] 09-20-2022 13:00-0500 Diastolic blood pressure 78 mm[Hg] Coco Shah Jr., DO Work Phone: [facility] 09-20-2022 13:00-0500 Heart rate 70 /min Coco Shah Jr., DO Work Phone: [facility] 09-20-2022 13:00-0500 SaO2% (BldA) [Mass fraction] 97 % Coco Shah Jr., DO Work Phone: [facility] 09-20-2022 13:00-0500 Systolic blood pressure 134 mm[Hg] Coco Shah Jr., DO Work Phone: [facility] 09-08-2022 10:26-0400 Body temperature 97.3 [degF] Dr. Zach Turner Work Phone: [facility] 09-08-2022 10:26-0400 Diastolic blood pressure 82 mm[Hg] Dr. Zach Turner Work Phone: [facility] 09-08-2022 10:26-0400 Heart rate 59 /min Dr. Zach Turner Work Phone: [facility] 09-08-2022 10:26-0400 Respiratory rate 18 /min Dr. Zach Turner Work Phone: [facility] 09-08-2022 10:26-0400 Systolic blood pressure 145 mm[Hg] Dr. Zach Turner Work Phone: [facility] 08-27-2022 09:11-0400 Body temperature 97.5 [degF] [facility] 08-27-2022 09:11-0400 Body weight 100.51 kg [facility] 08-27-2022 09:11-0400 Diastolic blood pressure 79 mm[Hg] [facility] 08-27-2022 09:11-0400 Heart rate 78 /min [facility] 08-27-2022 09:11-0400 SaO2% (BldA) [Mass fraction] 98 % [facility] 08-27-2022 09:11-0400 Systolic blood pressure 110 mm[Hg] [facility] 08-25-2022 10:20-0400 Body temperature 96.7 [degF] [facility] Work Phone: 08-25-2022 10:20-0400 Diastolic blood pressure 56 mm[Hg] [facility] Work Phone: 08-25-2022 10:20-0400 Heart rate 54 /min [facility] Work Phone: 08-25-2022 10:20-0400 Respiratory rate 16 /min [facility] Work Phone: 08-25-2022 10:20-0400 Systolic blood pressure 124 mm[Hg] [facility] Work Phone: 08-11-2022 10:27-0400 Body temperature 95.9 [degF] [facility] 08-11-2022 10:27-0400 Diastolic blood pressure 77 mm[Hg] [facility] 08-11-2022 10:27-0400 Heart rate 74 /min [facility] 08-11-2022 10:27-0400 Respiratory rate 16 /min [facility] 08-11-2022 10:27-0400 Systolic blood pressure 131 mm[Hg] [facility] 07-21-2022 11:23-0400 Body temperature 97.5 [degF] [facility] Work Phone: 07-21-2022 11:23-0400 Diastolic blood pressure 64 mm[Hg] [facility] Work Phone: 07-21-2022 11:23-0400 Heart rate 72 /min [facility] Work Phone: 07-21-2022 11:23-0400 Systolic blood pressure 148 mm[Hg] [facility] Work Phone: 07-16-2022 09:13-0400 Body height 182.88 cm [facility] Work Phone: 07-16-2022 09:13-0400 Body mass index (BMI) [Ratio] 29.6 kg/m2 [facility] Work Phone: 07-16-2022 09:13-0400 Body temperature 96.4 [degF] [facility] Work Phone: 07-16-2022 09:13-0400 Body weight 99.15 kg [facility] Work Phone: 07-16-2022 09:13-0400 Diastolic blood pressure 75 mm[Hg] [facility] Work Phone: 07-16-2022 09:13-0400 Heart rate 64 /min [facility] Work Phone: 07-16-2022 09:13-0400 Respiratory rate 16 /min [facility] Work Phone: 07-16-2022 09:13-0400 SaO2% (BldA) [Mass fraction] 99 % [facility] Work Phone: 07-16-2022 09:13-0400 Systolic blood pressure 123 mm[Hg] [facility] Work Phone: 07-15-2022 00:35-0400 Respiratory rate 16 /min [facility] Work Phone: 07-14-2022 10:58-0400 Body temperature 97.5 [degF] [facility] Work Phone: 07-14-2022 10:58-0400 Diastolic blood pressure 71 mm[Hg] [facility] Work Phone: 07-14-2022 10:58-0400 Heart rate 70 /min [facility] Work Phone: 07-14-2022 10:58-0400 Respiratory rate 16 /min [facility] Work Phone: 07-14-2022 10:58-0400 Systolic blood pressure 121 mm[Hg] [facility] Work Phone: 06-16-2022 09:06-0400 Body temperature 96.2 [degF] [facility] Work Phone: 06-16-2022 09:06-0400 Diastolic blood pressure 86 mm[Hg] [facility] Work Phone: 06-16-2022 09:06-0400 Heart rate 68 /min [facility] Work Phone: 06-16-2022 09:06-0400 Respiratory rate 16 /min [facility] Work Phone: 06-16-2022 09:06-0400 Systolic blood pressure 139 mm[Hg] [facility] Work Phone: 06-09-2022 09:19-0400 Body temperature 97.2 [degF] [facility] Work Phone: 06-09-2022 09:19-0400 Diastolic blood pressure 61 mm[Hg] [facility] Work Phone: 06-09-2022 09:19-0400 Heart rate 78 /min [facility] Work Phone: 06-09-2022 09:19-0400 Systolic blood pressure 142 mm[Hg] [facility] Work Phone: 06-04-2022 10:28-0400 Body temperature 97.1 [degF] [facility] Work Phone: 06-04-2022 10:28-0400 Diastolic blood pressure 63 mm[Hg] [facility] Work Phone: 06-04-2022 10:28-0400 Heart rate 52 /min [facility] Work Phone: 06-04-2022 10:28-0400 Respiratory rate 16 /min [facility] Work Phone: 06-04-2022 10:28-0400 SaO2% (BldA) [Mass fraction] 99 % [facility] Work Phone: 06-04-2022 10:28-0400 Systolic blood pressure 115 mm[Hg] [facility] Work Phone: 06-04-2022 10:08-0400 Body weight 95.27 kg [facility] Work Phone: 05-19-2022 12:29-0400 Body height 182.9 cm Coco Shah Jr., DO Work Phone: [facility] 05-19-2022 12:29-0400 Body mass index (BMI) [Ratio] 29.57 kg/m2 Coco Shah Jr., DO Work Phone: [facility] 05-19-2022 12:29-0400 Body weight 98.88 kg Coco Ashishfabienne Wilson, DO Work Phone: [employer] [facility] 05-19-2022 12:29-0400 Diastolic blood pressure 82 mm[Hg] Coco Shah Jr., DO Work Phone: [facility] 05-19-2022 12:29-0400 Heart rate 65 /min Coco Shah Jr., DO Work Phone: [facility] 05-19-2022 12:29-0400 SaO2% (BldA) [Mass fraction] 99 % Coco Shah Jr., DO Work Phone: [employer] [facility] 05-19-2022 12:29-0400 Systolic blood pressure 128 mm[Hg] Coco Shah Jr., DO Work Phone: [facility] 05-14-2022 00:46-0400 Respiratory rate 17 /min [facility] Work Phone: 05-12-2022 09:11-0400 Body temperature 97.1 [degF] Dr. Zach Turner Work Phone: [facility] Work Phone: 05-12-2022 09:11-0400 Diastolic blood pressure 88 mm[Hg] Dr. Zach Turner Work Phone: [facility] Work Phone: 05-12-2022 09:11-0400 Heart rate 84 /min Dr. Zach Turner Work Phone: [facility] Work Phone: 05-12-2022 09:11-0400 Respiratory rate 17 /min Dr. Zach Turner Work Phone: [facility] Work Phone: 05-12-2022 09:11-0400 Systolic blood pressure 151 mm[Hg] Dr. Zach Turner Work Phone: [facility] Work Phone: 04-09-2022 10:21-0400 Body temperature 97.6 [degF] Dr. Zach Turner Work Phone: [facility] Work Phone: 04-09-2022 10:21-0400 Body weight 99.[address] Zach Turner Work Phone: [facility] Work Phone: 04-09-2022 10:21-0400 Diastolic blood pressure 88 mm[Hg] Dr. Zach Turner Work Phone: [facility] Work Phone: 04-09-2022 10:21-0400 Heart rate 62 /min Dr. Zach Turner Work Phone: [facility] Work Phone: 04-09-2022 10:21-0400 Respiratory rate 12 /min Dr. Zach Turner Work Phone: [facility] Work Phone: 04-09-2022 10:21-0400 SaO2% (BldA) [Mass fraction] 96 % Dr. Zach Turner Work Phone: [facility] Work Phone: 04-09-2022 10:21-0400 Systolic blood pressure 140 mm[Hg] Dr. Zach Turner Work Phone: [facility] Work Phone: 02-22-2022 13:30-0400 Body height 182.[address] Zach Turner Work Phone: [facility] Work Phone: 02-22-2022 13:30-0400 Body mass index (BMI) [Ratio] 29.8 kg/m2 Dr. Zach Turner Work Phone: [facility] Work Phone: 02-22-2022 13:30-0400 Body temperature 96.7 [degF] Dr. Zach Turner Work Phone: [facility] Work Phone: 02-22-2022 13:30-0400 Body weight 99.[address] Zach Turner Work Phone: [facility] Work Phone: 02-22-2022 13:30-0400 Diastolic blood pressure 115 mm[Hg] Dr. Zach Turner Work Phone: [facility] Work Phone: 02-22-2022 13:30-0400 Heart rate 59 /min Dr. Zach Turner Work Phone: [facility] Work Phone: 02-22-2022 13:30-0400 Respiratory rate 18 /min Dr. Zach Turner Work Phone: [facility] Work Phone: 02-22-2022 13:30-0400 SaO2% (BldA) [Mass fraction] 99 % Dr. Zach Turner Work Phone: [facility] Work Phone: 02-22-2022 13:30-0400 Systolic blood pressure 157 mm[Hg] Dr. Zach Turner Work Phone: [facility] Work Phone: 02-12-2022 10:08-0400 Body height 182.[address] Zach Turner Work Phone: [facility] Work Phone: 02-12-2022 10:08-0400 Body mass index (BMI) [Ratio] 30.2 kg/m2 Dr. Zach Turner Work Phone: [facility] Work Phone: 02-12-2022 10:08-0400 Body temperature 96.8 [degF] Dr. Zach Turner Work Phone: [facility] Work Phone: 02-12-2022 10:08-0400 Body weight 100.[address] Zach Turner Work Phone: [facility] Work Phone: 02-12-2022 10:08-0400 Diastolic blood pressure 103 mm[Hg] Dr. Zach Turner Work Phone: [facility] Work Phone: 02-12-2022 10:08-0400 Heart rate 83 /min Dr. Zach Turner Work Phone: [facility] Work Phone: 02-12-2022 10:08-0400 Respiratory rate 16 /min Dr. Zach Turner Work Phone: [facility] Work Phone: 02-12-2022 10:08-0400 SaO2% (BldA) [Mass fraction] 97 % Dr. Zach Turner Work Phone: [facility] Work Phone: 02-12-2022 10:08-0400 Systolic blood pressure 149 mm[Hg] Dr. Zach Turner Work Phone: [facility] Work Phone: 02-03-2022 11:21-0400 Body mass index (BMI) [Ratio] 30.1 kg/m2 Dr. Zach Turner Work Phone: [facility] Work Phone: 02-03-2022 11:21-0400 Body weight 100.[address] Zach Turner Work Phone: [facility] Work Phone: 02-03-2022 11:21-0400 Diastolic blood pressure 69 mm[Hg] Dr. Zach Turner Work Phone: [facility] Work Phone: 02-03-2022 11:21-0400 Heart rate 57 /min Dr. Zach Turner Work Phone: [facility] Work Phone: 02-03-2022 11:21-0400 Respiratory rate 18 /min Dr. Zach Turner Work Phone: [facility] Work Phone: 02-03-2022 11:21-0400 Systolic blood pressure 136 mm[Hg] Dr. Zach Turner Work Phone: [facility] Work Phone: 02-03-2022 11:21-0400 Body height 182.[address] Zach Turner Work Phone: [facility] Work Phone: 02-03-2022 11:21-0400 Body mass index (BMI) [Ratio] 30.1 kg/m2 Dr. Zach Turner Work Phone: [facility] Work Phone: 02-03-2022 11:21-0400 Body weight 100.[address] Zach Turner Work Phone: [facility] Work Phone: 02-03-2022 11:21-0400 Diastolic blood pressure 69 mm[Hg] Dr. Zach Turner Work Phone: [facility] Work Phone: 02-03-2022 11:21-0400 Heart rate 57 /min Dr. Zach Turner Work Phone: [facility] Work Phone: 02-03-2022 11:21-0400 Respiratory rate 18 /min Dr. Zach Turner Work Phone: [facility] Work Phone: 02-03-2022 11:21-0400 Systolic blood pressure 136 mm[Hg] Dr. Zach Turner Work Phone: [facility] Work Phone: 12-15-2021 09:10-0500 Body mass index (BMI) [Ratio] 31.1 kg/m2 Dr. Zach Turner Work Phone: [facility] Work Phone: 12-15-2021 09:10-0500 Body temperature 96.7 [degF] Dr. Zach Turner Work Phone: [facility] Work Phone: 12-15-2021 09:10-0500 Body weight 104.[address] Zach Turner Work Phone: [facility] Work Phone: 12-15-2021 09:10-0500 Diastolic blood pressure 74 mm[Hg] Dr. Zach Turner Work Phone: [facility] Work Phone: 12-15-2021 09:10-0500 Heart rate 63 /min Dr. Zach Turner Work Phone: [facility] Work Phone: 12-15-2021 09:10-0500 Respiratory rate 16 /min Dr. Zach Turner Work Phone: [facility] Work Phone: 12-15-2021 09:10-0500 SaO2% (BldA) [Mass fraction] 98 % Dr. Zach Turner Work Phone: [facility] Work Phone: 12-15-2021 09:10-0500 Systolic blood pressure 144 mm[Hg] Dr. Zach Turner Work Phone: [facility] Work Phone: 10-20-2021 09:00-0500 Body mass index (BMI) [Ratio] 29.9 kg/m2 Dr. Zach Turner Work Phone: [facility] Work Phone: 10-20-2021 09:00-0500 Body temperature 96 [degF] Dr. Zach Turner Work Phone: [facility] Work Phone: 10-20-2021 09:00-0500 Body weight 100.[address] Zach Turner Work Phone: [facility] Work Phone: 10-20-2021 09:00-0500 Diastolic blood pressure 67 mm[Hg] Dr. Zach Turner Work Phone: [facility] Work Phone: 10-20-2021 09:00-0500 Heart rate 68 /min Dr. Zach Turner Work Phone: [facility] Work Phone: 10-20-2021 09:00-0500 Respiratory rate 16 /min Dr. Zach Turner Work Phone: [facility] Work Phone: 10-20-2021 09:00-0500 Systolic blood pressure 141 mm[Hg] Dr. Zach Turner Work Phone: [facility] Work Phone: 03-23-2021 11:26-0400 Body height 182.9 cm Coco Shah Jr., DO Work Phone: [facility] 03-23-2021 11:26-0400 Body mass index (BMI) [Ratio] 31.87 kg/m2 Coco Shah Jr., DO Work Phone: [facility] 03-23-2021 11:26-0400 Body temperature 98.4 [degF] Coco Shah Jr., DO Work Phone: [facility] 03-23-2021 11:26-0400 Body weight 106.59 kg Coco Shah Jr., DO Work Phone: [facility] 03-23-2021 11:26-0400 Diastolic blood pressure 72 mm[Hg] Coco Shah Jr., DO Work Phone: [facility] 03-23-2021 11:26-0400 Heart rate 73 /min Coco Shah Jr., DO Work Phone: [facility] 03-23-2021 11:26-0400 SaO2% (BldA) [Mass fraction] 96 % Coco Shah Jr., DO Work Phone: [facility] 03-23-2021 11:26-0400 Systolic blood pressure 128 mm[Hg] Coco Shah Jr., DO Work Phone: [facility] 09-22-2020 11:26-0500 BMI (Body Mass Index) 32.14 kg/m2 [facility] 09-22-2020 11:26-0500 Body Temperature 97.11 [degF] [facility] 09-22-2020 11:26-0500 Body weight 107.5 kg [facility] 09-22-2020 11:26-0500 BP Diastolic 82 mm[Hg] [facility] 09-22-2020 11:26-0500 BP Systolic 122 mm[Hg] [facility] 09-22-2020 11:26-0500 Height 182.9 cm [facility] 09-22-2020 11:26-0500 Pulse (Heart Rate) 64 /min [facility] 09-22-2020 11:26-0500 Pulse Oximetry 99 % [facility] 05-14-2020 10:54-0400 BMI (Body Mass Index) 30.79 kg/m2 [facility] 05-14-2020 10:54-0400 Body Temperature 98.29 [degF] [facility] 05-14-2020 10:54-0400 Body weight 102.97 kg [facility] 05-14-2020 10:54-0400 BP Diastolic 72 mm[Hg] [facility] 05-14-2020 10:54-0400 BP Systolic 130 mm[Hg] [facility] 05-14-2020 10:54-0400 Height 182.9 cm [facility] 05-14-2020 10:54-0400 Pulse (Heart Rate) 69 /min [facility] 05-14-2020 10:54-0400 Pulse Oximetry 97 % [facility] 10-08-2019 10:26-0500 BMI (Body Mass Index) 30.65 kg/m2 [facility] 10-08-2019 10:26-0500 Body Temperature 97 [degF] [facility] 10-08-2019 10:26-0500 Body weight 102.51 kg [facility] 10-08-2019 10:26-0500 BP Diastolic 74 mm[Hg] [facility] 10-08-2019 10:26-0500 BP Systolic 128 mm[Hg] [facility] 10-08-2019 10:26-0500 Height 182.9 cm [facility] 10-08-2019 10:26-0500 Pulse (Heart Rate) 68 /min [facility] 10-08-2019 10:26-0500 Pulse Oximetry 97 % [facility] 01-22-2019 07:43-0400 BMI (Body Mass Index) 32.4 kg/m2 [facility] 01-22-2019 07:43-0400 Body Temperature 96.21 [degF] [facility] 01-22-2019 07:43-0400 Body weight 108.36 kg [facility] 01-22-2019 07:43-0400 BP Diastolic 78 mm[Hg] [facility] 01-22-2019 07:43-0400 BP Systolic 140 mm[Hg] [facility] 01-22-2019 07:43-0400 Height 182.9 cm [facility] 01-22-2019 07:43-0400 Pulse (Heart Rate) 51 /min [facility] 01-22-2019 07:43-0400 Pulse Oximetry 97 % [facility] 10-03-2017 08:10-0500 BMI (Body Mass Index) [...] Provider Facility Start: 08-05-2025 ambulatory SELF SELF [facility] Start: 07-02-2025 ambulatory Luz Canalesi ty:[facility] Start: 06-27-2025 ambulatory Coco buchanan Jr. Facility:[facility] Start: 06-21-2025 End: 06-21-2025 Emergency department patient visit Dr. Zach Turner MD Work Phone: -Emergency Department Work Phone: Start: 06-14-2025 ambulatory Coco buchanan Jr. Facility:[facility] Start: 06-12-2025 End: 06-12-2025 Office outpatient visit 25 minutes Georgina Moore MD Work Phone: [facility] Comment on above: Skin lesion (Primary Dx); Pruritus Start: 06-12-2025 End: 06-12-2025 ambulatory GEORGINAPRIMITIVO MOORE [facility] Start: 06-11-[address] Keerthi Shah MD -[facility] Work Phone: Start: 06-11-2025 ambulatory Coco buchanan Jr. Facility:[facility] Start: 06-07-2025 End: 06-07-[address] Coco Shah MD -Medical Out Work Phone: Start: 06-07-2025 End: 06-07-[address] Zach Turner MD Work Phone: -[facility] Start: 05-30-2025 End: 05-30-2025 Office outpatient visit 25 minutes Christina Cartagena MD Work Phone: [facility] Comment on above: Stage 3b chronic kid marleny disease (Primary Dx) Start: 05-30-2025 ambulatory ZACH Livia [facility] Start: 05-28-2025 End: 06-13-[address] Coco Shah MD -[facility] Work Phone: Start: 05-28-[address] Coco Shah MD -[facility] Work Phone: Start: 05-28-2025 End: 06-13-[address] Zach Turner MD Work Phone: -[facility] Start: 05-24-2025 End: 05-24-[address] Zach Turner MD Work Phone: -[facility] Start: 05-24-2025 End: 05-24-[address] Memo Hernández MD -[facility] Work Phone: Start: 05-24-2025 End: 05-24-2025 ambulatory Memo Hernández Facility:[facility] Start: 05-22-2025 ambulatory [facility] Start: 05-22-2025 End: 05-22-2025 Subsequent hospital visit by physician Christina Cartagena MD Work Phone: [facility] Comment on above: Arrived Start: 05-14-2025 End: 05-14-[address] Zach Turner MD Work Phone: -[facility] Start: 05-14-2025 End: 05-14-[address] Latonia Berry MD -[facility] Work Phone: Start: 05-14-2025 End: 05-14-2025 ambulatory Latonia Berry Facility:[facility] Start: 04-17-2025 Non-patient / Non-visit Dr. Coco hood MD -[facility] Work Phone: Start: 04-16-2025 Non-patient / Non-visit Dr. Coco hood MD -[facility] Work Phone: Start: 04-15-2025 ambulatory Coco Pepe Facility:[facility] Start: 04-15-2025 End: 04-17-2025 Evaluation and management of inpatient Dr. Coco Pepe MD -[facility] 3 Work Phone: Start: 04-04-2025 End: 04-04-[address] Coco Shah MD -Medical Out Work Phone: Start: 04-04-2025 End: 04-04-2025 ambulatory Zach Turner Facility:[facility] Start: 03-27-2025 End: 03-27-[address] Zach Turner MD Work Phone: [facility] Work Phone: Start: 03-27-2025 End: 03-27-[address] Patrick MOHAMUD -[facility] Work Phone: Start: 03-27-2025 End: 03-27-2025 ambulatory Zach Turner Facility:[facility] Start: 03-08-2025 End: 03-08-[address] 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 Coco Shah MD -Laboratory Work Phone: Start: 02-26-2025 End: 03-13-2025 ambulatory Coco Shah Jr. Facility:[facility] Start: 02-21-2025 End: 02-21-[address] Coco Shah MD -Medical Out Work Phone: Start: 02-21-2025 End: 02-21-[address] Zach Turner MD Work Phone: [facility] Work Phone: Start: 01-25-2025 End: 01-25-2025 Office outpatient visit 40 minutes Coco Shah DO Work Phone: [facility] Comment on above: Psoriatic arthritis (Primary Dx); Primary osteoarthritis of both knees; Cervical disc disorder, unspecified, unspecified cervical region; Cervical disc disorder; Macrocytic anemia; Hyperchromic anemia; Vesicular palmoplantar eczema; Senile lentigo; Seborrheic keratosis; Seborrheic eczema; Pustulosis palmaris et plantaris; Psoriasis; Photoaged skin; Other skin changes due to chronic exposure to nonionizing radiation; Eczema, unspecified type; Asteatosis cutis; Actinic keratosis; Other proteinuria; Other halfway (current) drug therapy; On statin therapy; 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, 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, 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; Nocturia; Long-term current use of high risk medication other than anticoagulant; 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 use of drug; Infliximab (Remicade) long-term use; History of osteomyelitis; History of malignant neoplasm of skin; Difficulty in urination; Current use of halfway anticoagulation; Abnormal renal function test; Psoriatic arthritis mutilans; Encounter for long-term (current) use of non-steroidal anti-inflammatories; 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; Osteoarthritis of both knees, unspecified osteoarthritis type Start: 01-25-2025 ambulatory SELF SELF [facility] Start: 01-09-2025 End: 01-09-2025 Patient encounter procedure Odalis MILLER -[facility] Work Phone: Start: 01-09-2025 End: 01-09-2025 ambulatory Zach Turner Facility:[facility] Start: 12-25-2024 End: 12-25-[address] Coco Shah MD -Medical Out Work Phone: Start: 12-25-2024 End: 12-25-2024 ambulatory Zach Turner Facility:[facility] Start: 11-19-2024 ambulatory SELF SELF [facility] Start: 11-09-2024 End: 11-09-[address] Coco Shah MD -Medical Out Work Phone: Start: 11-09-2024 End: 11-09-2024 ambulatory Coco Shah Jr. Facility:[facility] Start: 10-31-2024 End: 10-31-2024 Office outpatient visit 25 minutes Georgina Moore MD Work Phone: [facility] [place] Comment on above: Actinic keratoses (P rimary Dx); Stasis dermatitis Start: 10-31-2024 End: 10-31-2024 ambulatory GEORGINA MOORE [facility] Start: 10-30-2024 End: 10-30-[address] Zach Turner MD -Laboratory, [facility] Start: 10-30-2024 End: 10-30-2024 ambulatory Zach Turner Facility:[facility] Start: 10-08-2024 End: 10-08-2024 ambulatory Zach Turner Facility:[facility] Start: 10-02-2024 End: 10-02-2024 ambulatory Zach Turner Facility:[facility] Start: 09-30-2024 End: 09-30-2024 Emergency department patient visit Bhanu Lopes Facility:[facility] Start: 09-28-2024 End: 09-28-2024 ambulatory Coco Shah Jr. Facility:[facility] Start: 09-07-2024 End: 09-07-2024 ambulatory Coco Shah Jr. Facility:[facility] Start: 08-22-2024 End: 08-22-2024 ambulatory Coco Shah Jr. Facility:[facility] Start: 08-10-2024 End: 08-10-2024 ambulatory Coco Shah Jr. Facility:[facility] Start: 08-06-2024 End: 08-06-2024 ambulatory Jose Pearce Facility:[facility] Start: 07-27-2024 End: 07-27-2024 ambulatory Chevy Abdirahman Facility:[facility] Start: 07-17-2024 End: 07-23-2024 Telephone encounter Georgina Moore MD Work Phone: [facility] - [facility] Comment on above: Appointment Request Start: 07-11-2024 End: 07-11-2024 Office outpatient new 45 minutes Georgina Moore MD Work Phone: [facility] Comment on above: Neoplasm of uncertai n behavior of skin (Primary Dx); Actinic keratoses Start: 07-11-2024 End: 07-11-2024 ambulatory [facility] Start: 06-29-2024 End: 06-29-2024 ambulatory Coco Shah Jr. Facility:[facility] Start: 05-07-2024 End: 05-07-2024 Office outpatient visit 15 minutes Coco Sahh DO Work Phone: [facility] Comment on above: Psoriatic arthritis (Primary Dx); Psoriatic arthritis mutilans; Hyperchromic anemia; Macrocytic anemia; Abnormal renal function test; Encounter for long-term (current) use of non-steroidal anti-inflammatories; History of malignant neoplasm of skin; History of osteomyelitis; Infliximab (Remicade) long-term use; Long-term current use of high risk medication other than anticoagulant; On statin therapy; Other 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 (current) drug therapy; Personal history of other malignant neoplasm of skin; Cervical disc disorder; Cervical disc disorder, unspecified, unspecified cervical region; Primary osteoarthritis of both knees; Psoriasis; Pustulosis palmaris et plantaris; Asteatosis cutis; 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, halfway, current use; Seborrheic eczema; Eczema, unspecified type; 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; Osteoarthritis of both knees, unspecified osteoarthritis type Start: 02-24-2024 End: 02-24-2024 ambulatory [facility] Work Phone: Start: 02-24-2024 End: 02-24-2024 Patient encounter procedure [facility] Work Phone: Start: 02-21-2024 End: 03-13-2024 ambulatory [facility] Work Phone: Start: 02-21-2024 End: 03-13-2024 Discharged Recurring [facility]-Laboratory Work Phone: Start: 02-21-2024 Registered Recurring [facility] Work Phone: Start: 02-15-2024 End: 02-15-2024 ambulatory [facility] Work Phone: Start: 02-15-2024 End: 02-15-2024 Patient encounter procedure [facility], Specimen Work Phone: Start: 01-13-2024 End: 01-13-2024 ambulatory [facility] Work Phone: Start: 01-13-2024 End: 01-13-2024 Patient encounter procedure [facility] Work Phone: Start: 11-22-2023 End: 11-22-2023 ambulatory [facility] Work Phone: Start: 11-22-2023 End: 11-22-2023 Patient encounter procedure [facility] Work Phone: Start: 11-11-2023 End: 11-11-2023 ambulatory [facility] Work Phone: Start: 11-11-2023 End: 11-11-2023 [facility] Start: 10-26-2023 End: 10-26-2023 Office outpatient visit 25 minutes Coco Shah DO Work Phone: [facility] Comment on above: Psoriatic arthritis mutilans (Primary Dx); Psoriatic arthritis; Primary osteoarthritis of both knees; Cervical disc disorder, unspecified, unspecified cervical region; Cervical disc disorder; Pustulosis palmaris et plantaris; Psoriasis; Seborrheic eczema; Photoaged skin; Other skin changes due to chronic exposure to nonionizing radiation; Eczema, unspecified type; Asteatosis cutis; Actinic keratosis; Personal history of other malignant neoplasm of skin; Other halfway (current) drug therapy; On statin therapy; Nocturia; 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, halfway, current use; Long-term current use of high risk medication other than anticoagulant; History of osteomyelitis; History of malignant neoplasm of skin; Encounter for long-term (current) use of non-steroidal anti-inflammatories Start: 09-30-2023 End: 09-30-2023 ambulatory [facility] Work Phone: Start: 09-30-2023 End: 09-30-2023 [facility] Start: 08-22-2023 End: 08-22-2023 ambulatory [facility] Work Phone: Start: 08-22-2023 End: 08-22-2023 Discharged Recurring [facility] Work Phone: Start: 08-19-2023 End: 08-19-2023 Patient encounter procedure [facility] Work Phone: Start: 07-08-2023 End: 07-08-2023 ambulatory [facility] Work Phone: Start: 07-08-2023 End: 07-08-2023 Patient encounter procedure [facility] Work Phone: Start: 07-04-2023 End: 07-04-2023 Office outpatient visit 15 minutes Coco Shah DO Work Phone: [facility] Comment on above: Psoriatic arthritis (Primary Dx); Psoriatic arthritis mutilans; Psoriasis; Pustulosis palmaris et plantaris; Abnormal renal function test; Encounter for long-term (current) use of non-steroidal anti-inflammatories; History of malignant neoplasm of skin; History of osteomyelitis; Long-term current use of high risk medication other than anticoagulant; 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 Zach Turner Work Phone: [facility] Work Phone: Start: 06-13-2023 End: 06-13-[address] Zach Turner Work Phone: [facility] Work Phone: Start: 05-27-2023 End: 05-27-[address] Zach Turner Work Phone: [facility] Work Phone: Start: 05-27-2023 End: 05-27-[address] Zach Turner Work Phone: [facility] Work Phone: Start: 05-23-[address] Zach Turner Work Phone: [facility] Work Phone: Start: 05-13-2023 End: 05-13-[address] Zach Turner Work Phone: [facility]iov[facility] Work Phone: Start: 05-10-2023 End: 05-10-[address] Zach Turner Work Phone: [facility] Work Phone: Start: 05-10-2023 End: 05-10-[address] [facility] Work [facility] Start: 05-04-2023 End: 05-04-[address] Zach Turner Work Phone: [facility] Work Phone: Start: 05-04-2023 End: 05-04-[address] Zach Turner Work Phone: [facility] Start: 04-28-2023 ambulatory ZACH Gant [facility] Start: 04-26-2023 End: 04-26-[address] Zach Turner Work Phone: [facility] Work Phone: Start: 04-26-2023 End: 04-26-[address] [facility] Start: 03-29-2023 End: 03-29-[address] Zach Turner Work Phone: [facility]atory, Specimen Start: 03-25-2023 End: 03-25-[address] Zach Turner Work Phone: [facility] Work Phone: Start: 03-25-2023 End: 03-25-[address] Zach Turner Work Phone: [facility] Start: 03-04-2023 End: 03-04-2023 [facility] Start: 03-03-2023 End: 03-03-2023 [facility] Start: 03-01-2023 Non-patient / Non-visit Dr. Pranay Turner Work Phone: [facility] Start: 02-27-2023 Non-patient / Non-visit Dr. Pranay Turner Work Phone: [facility] Start: 02-26-2023 Non-patient / Non-visit Dr. Pranay Turner Work Phone: [facility] Start: 02-25-2023 End: 02-27-2023 Evaluation and management of inpatient [facility] 3 Start: 02-22-2023 End: 02-22-2023 ambulatory [facility] Work Phone: Start: 02-22-2023 End: 02-22-2023 Patient encounter procedure [facility], Specimen Start: 02-11-2023 End: 02-11-2023 ambulatory [facility] Work Phone: Start: 02-11-2023 End: 02-11-2023 Patient encounter procedure [facility] Start: 01-06-2023 End: 01-11-2023 Discharged Recurring [facility] Start: 12-31-2022 End: 12-31-2022 Patient encounter procedure [facility] Start: 12-15-2022 Non-patient / Non-visit [facility] Start: 12-01-2022 Non-patient / Non-visit Dr. Pranay Turner Work Phone: [facility] Start: 12-01-2022 End: 12-14-[address] Zach Turner Work Phone: [facility] Work Phone: Start: 12-01-2022 End: 12-14-[address] Zach Turner Work Phone: [facility] Start: 12-01-[address] Zach [facility] Start: 11-25-2022 End: 11-25-[address] Zach Turner Work Phone: [facility] Work Phone: Start: 11-25-2022 End: 11-25-[address] Zach Turner Work Phone: [facility]-Laboratory Start: 11-24-2022 Non-patient / Non-visit Dr. Pranay Turner Work Phone: [facility] Start: 11-19-2022 End: 11-19-[address] Zach Turner Work Phone: [facility] Work Phone: Start: 11-19-2022 End: 11-19-[address] Zach Turner Work Phone: [facility] Start: 11-10-2022 Non-patient / Non-visit Dr. Pranay Turner Work Phone: [facility] Start: 11-10-2022 End: 11-13-[address] Zach Turner Work Phone: [facility] Work Phone: Start: 11-10-2022 End: 11-13-[address] Zach Turner Work Phone: [facility] Start: 11-03-2022 Non-patient / Non-visit Dr. Pranay Turner Work Phone: [facility] Start: 10-27-2022 Non-patient / Non-visit Dr. Pranay Turner Work Phone: [facility] Start: 10-20-2022 Non-patient / Non-visit Dr. Pranay Turner Work Phone: [facility] Start: 10-13-2022 Non-patient / Non-visit Dr. Pranay Turner Work Phone: [facility] Start: 10-13-2022 End: 10-13-[address] Zach Turner Work Phone: [facility] Work Phone: Start: 10-13-2022 End: 10-13-[address] Zach Turner [facility] [place] Start: 10-08-2022 End: 10-08-[address] Zach Turner Work Phone: [facility] Work Phone: Start: 10-08-2022 End: 10-08-[address] Zach Turner Work Phone: [facility] Start: 10-06-2022 Non-patient / Non-visit Dr. Pranay Turner Work Phone: [facility] Start: 09-29-2022 Non-patient / Non-visit Dr. Pranay Turner Work Phone: [facility] Start: 09-22-2022 Non-patient / Non-visit Dr. Pranay Turner Work Phone: [facility] Start: 09-20-2022 End: 09-20-2022 Office outpatient visit 15 minutes Coco Shah DO Work Phone: [facility] Comment on above: Psoriatic arthritis (Primary [...] other than anticoagulant; On statin therapy; Other halfway (current) drug therapy; Cervical disc disorder; Cervical disc disorder, unspecified, unspecified cervical region; Primary osteoarthritis of both knees Start: 09-08-2022 Non-patient / Non-visit Dr. Pranay Turner Work Phone: [facility] Start: 09-08-2022 End: 09-13-[address] [facility] Start: 09-02-2022 End: 09-02-[address] Zach Turner Work Phone: [facility] Start: 08-27-2022 End: 08-27-2022 ambulatory [facility] Work Phone: Start: 08-27-2022 End: 08-27-2022 Patient encounter procedure [facility] Start: 08-25-2022 Non-patient / Non-visit [facility] Start: 08-25-2022 [facility] Start: 08-23-2022 End: 09-13-[address] Zach Turner Work Phone: [facility] Work Phone: Start: 08-23-2022 End: 09-13-[address] Zach Turner Work Phone: [facility] Start: 08-23-2022 Registered Recurring [facility] Start: 08-18-2022 Non-patient / Non-visit [facility] Start: 08-11-2022 Non-patient / Non-visit [facility] Start: 08-11-2022 End: 08-13-2022 ambulatory [facility] Work Phone: Start: 08-11-2022 End: 08-13-2022 [facility] Start: 08-04-2022 Non-patient / Non-visit [facility] Start: 07-28-2022 Non-patient / Non-visit [facility] Start: 07-21-2022 Non-patient / Non-visit [facility] Start: 07-21-2022 [facility] Start: 07-16-2022 End: 07-16-2022 ambulatory [facility] Work Phone: Start: 07-16-2022 End: 07-16-2022 Patient encounter procedure [facility] Start: 07-14-2022 Non-patient / Non-visit [facility] Start: 07-14-2022 End: 07-14-2022 ambulatory [facility] Work Phone: Start: 07-14-2022 End: 07-14-2022 [facility] Start: 07-14-2022 [facility] Start: 07-07-2022 Non-patient / Non-visit [facility] Start: 06-30-2022 Non-patient / Non-visit [facility] Start: 2022 Non-patient / Non-visit [facility] Start: 06-21-2022 End: 06-21-2022 ambulatory [facility] Work Phone: Start: 06-21-2022 End: 06-21-2022 Discharged Recurring [facility] Start: 06-16-2022 Non-patient / Non-visit [facility] Start: 06-16-2022 [facility] Start: 06-11-2022 End: 06-11-2022 Patient encounter procedure [facility], [facility] Start: 06-09-2022 Non-patient / Non-visit [facility] Start: 06-09-2022 End: 06-13-2022 [facility] Start: 06-09-2022 [facility] [place] [facility] Start: 06-04-2022 End: 06-04-2022 Patient encounter procedure [facility] Start: 06-02-2022 Non-patient / Non-visit [facility] Start: 05-26-2022 Non-patient / Non-visit [facility] Start: 05-19-2022 End: 05-19-2022 Office outpatient visit 25 minutes Coco Shah DO Work Phone: [facility] Comment on above: Psoriatic arthritis (Primary Dx); Psoriatic arthritis mutilans; Unspecified open wound, unspecified foot, initial encounter; Psoriasis; Pustulosis palmaris et plantaris; Asteatosis cutis; Photoaged skin; CRP elevated; History of malignant neoplasm of skin; History of osteomyelitis; prison (current) use of antibiotics; Long-term current use of high risk medication other than anticoagulant; 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, halfway, current use; On statin therapy; Other 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 (current) drug therapy; Personal history of other malignant neoplasm of skin; Cervical disc disorder; Cervical disc disorder, unspecified, unspecified cervical region; Primary osteoarthritis of both knees; Seborrheic eczema; Eczema, unspecified type; Encounter for long-term (current) use of non-steroidal anti-inflammatories; 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; Osteoarthritis of both knees, unspecified osteoarthritis type Start: 05-19-2022 Non-patient / Non-visit [facility] Start: 05-12-2022 Non-patient / Non-visit Dr. Pranay Turner Work Phone: [facility] Start: 05-12-2022 End: 05-13-[address] Zach Turenr [facility] Start: 05-05-2022 Non-patient / Non-visit Dr. Pranay Turner Work Phone: [facility] Start: 04-28-2022 Non-patient / Non-visit Dr. Pranay Turner Work Phone: [facility] Start: 04-21-2022 End: 04-21-2022 [facility] Start: 04-21-[address] Zach [facility] Start: 04-21-2022 Non-patient / Non-visit Dr. Pranay Turner Work Phone: [facility] Start: 04-09-2022 End: 04-09-[address] [facility] Start: 02-22-2022 End: 02-22-2022 Emergency department patient visit Dr. Zach Turner Work Phone: [facility] Start: 02-12-2022 End: 02-12-[address] Zach [facility] Start: 02-05-2022 End: 02-05-[address] Zach Turner Work Phone: [facility] Start: 02-03-2022 End: 02-03-[address] Zach Turner Work Phone: [facility] Start: 12-15-2021 End: 12-15-[address] [facility] Start: 12-04-2021 End: 12-14-[address] Zach Turner Work Phone: [facility] Start: 11-16-2021 End: 11-16-[address] Zach Turner Work Phone: [facility], Specimen Start: 10-20-[address] Keerthi Turner Work Phone: [facility] Start: 03-23-2021 End: 03-23-2021 Office outpatient visit 25 minutes Coco Shah DO Work Phone: [facility] Comment on above: Psoriatic arthritis mutilans (Primary Dx); Pustulosis palmaris et plantaris; Psoriasis; Psoriatic arthritis; Other 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 (current) drug therapy; History of malignant neoplasm of skin; Long-term current use of high risk medication other than anticoagulant; Personal history of other malignant neoplasm of skin; Encounter for long-term (current) use of non-steroidal anti-inflammatories; 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, halfway, current use; prison (current) use of antibiotics; Osteoarthritis of both knees, unspecified osteoarthritis type; Cervical disc disorder, unspecified, unspecified cervical region; Primary osteoarthritis of both knees; Cervical disc disorder Start: 09-22-2020 End: 09-22-2020 Office outpatient visit 25 minutes Coco Shah Work Phone: [facility] Comment on above: Psoriatic arthritis mutilans (Primary Dx); Psoriatic arthritis; Psoriasis; Eczema, unspecified type; Personal history of other malignant neoplasm of skin; Other halfway (current) drug therapy; 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, 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, current use; Long-term current use of high [...] visit 25 minutes Coco Shah Work Phone: [facility] [employer] [facility] Comment on above: Psoriatic arthritis (Primary Dx); Psoriatic arthritis mutilans; Pustulosis palmaris et plantaris; Long-term current use of high risk medication other than anticoagulant; 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, halfway, current use; Other halfway (current) drug therapy; Cervical disc disorder; Cervical disc disorder, unspecified, unspecified cervical region; Osteoarthritis of both knees, unspecified osteoarthritis type; Primary osteoarthritis of both knees; Psoriasis; prison 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; Encounter for long-term (current) use of non-steroidal anti-inflammatories; Asteatosis cutis; Seborrheic eczema; Eczema, unspecified type Start: 10-08-2019 End: 10-08-2019 Office outpatient visit 25 minutes Coco Shah Work Phone: [facility] Comment on above: Psoriatic arthritis (Primary Dx); Psoriatic arthritis mutilans; Pustulosis palmaris et plantaris; Asteatosis cutis; Seborrheic eczema; Long-term current use of high risk medication other than anticoagulant; 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, 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, current use; Other 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 (current) drug therapy; Eczema, unspecified type; Cervical disc disorder; Cervical disc disorder, unspecified, unspecified cervical region; Osteoarthritis of both knees, unspecified osteoarthritis type; Primary osteoarthritis of both knees; Psoriasis; 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; Encounter for long-term (current) use of non-steroidal anti-inflammatories Start: 06-21-2019 End: 06-21-2019 Refill Coco Shah Work Phone: [facility] Start: 01-24-2019 End: 01-24-2019 Telephone encounter Yasmin Wall [facility] Comment on above: Results Start: 01-23-2019 End: 01-23-2019 Patient encounter procedure Other Other [facility] Start: 01-22-2019 End: 01-22-2019 Patient encounter procedure Coco Shah Work Phone: [facility] Start: 01-22-2019 End: 01-22-2019 Office outpatient visit 25 minutes Coco Shah Work Phone: [facility] Comment on above: Psoriatic arthritis (Primary Dx); Psoriatic arthritis mutilans; Pustulosis palmaris et plantaris; Seborrheic eczema; Seborrheic keratosis; Vesicular palmoplantar eczema; Encounter for long-term (current) use of non-steroidal anti-inflammatories; Long-term current use of high risk medication other than anticoagulant; 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, 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, current use; Other 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 (current) drug therapy; Claudication; Osteoarthritis of both [...] Dr. Zach Turner MD Work Phone: Start: 03-08-2025 Evaluation [...] Work Phone: Start: 10-03-2017 End: 10-11-2017 [facility]om-mode compl spec&colr d Tomasa Russell CNP Work Phone: Start: 10-03-2017 End: 10-03-2017 Follow Up Appt 6 months Merrill Coppola NP Work Phone: Start: 10-03-2017 End: 10-03-2017 PFM Merrill Coppola MEDICAL APPLIANCE MAKER Work Phone: Start: 05-09-2017 End: 10-11-2017 BWA Tomasa Christian MEDICAL APPLIANCE MAKER Work Phone: Start: 05-09-2017 End: 10-11-2017 Follow Up Appt 6 months Tomasa guzman HOSPITAL SECURITY OFFICER Work Phone: Start: 11-29-2016 End: 11-29-2016 Follow [...] Diabetes: Urine Albumin-Creatinine Ratio for Kidney [facility] Start: 11-28-2025 End: 11-28-2025 Patient encounter procedure 11/28/2025 11:30 AM EST Office Visit [facility] [address] [place] [address] Christina Cartagena MD [address] [place] [id number] [facility] Start: 08-16-2025 End: 08-16-2025 Patient encounter procedure 08/16/2025 1:30 PM EDT Office Visit [facility] [place] [address] [facility] [address] [place] [address] Georgina Moore MD [address] [facility] [place], [place] [id number] [facility] [place] Start: 08-05-2025 End: 08-05-2025 Patient encounter procedure 08/05/2025 12:00 PM EDT Office Visit [facility] [address] [place] [address] Pablo Wilson, Coco Carter, [address] [address] [facility] Start: 07-15-2025 Influenza vaccination INFLUENZA VACCINE (#1) [facility] Start: 06-21-2025 [facility] Start: 06-07-2025 Chemotherapy admn iv infusion tq ea hr CHEMO IV INFUSION ADDL HR [facility] Start: 06-07-2025 Chemotx admn iv nfs tq up 1 hr 11/14 sbst/drug CHEMO IV INFUSION 1 HR [facility] Start: 05-30-2025 End: 05-30-2026 Complete blood count with white cell differential, automated CBC, EDIF, PLATELET Lab Routine Stage 3b chronic kidney disease Expected: 05/30/2025, Expires: 05/30/2026 [facility] Comment on above: Expected: 05/30/2025, Expires: Start: 05-30-2025 End: 05-30-2026 DANELLE AND PE, SERUM DANELLE AND PE, SERUM Lab Routine Stage 3b chronic kidney disease Expected: 05/30/2025, Expires: 05/30/2026 [facility] Comment on above: Expected: 05/30/2025, Expires: Start: 05-30-2025 End: 05-30-2026 IMMUNOGLOBULIN FREE CHAINS IMMUNOGLOBULIN FREE CHAINS Lab Routine Stage 3b chronic kidney disease Expected: 05/30/2025, Expires: 05/30/2026 [facility] Comment on above: Expected: 05/30/2025, Expires: Start: 05-30-2025 End: 05-30-2026 Magnesium [Mass/volume] in Serum or Plasma MAGNESIUM Lab Routine Stage 3b chronic kidney disease Expected: 05/30/2025, Expires: 05/30/2026 [facility] Comment on above: Expected: 05/30/2025, Expires: Start: 05-30-2025 End: 05-30-2026 MICROALBUMIN/CREATININE RATIO MICROALBUMIN/CREATININE RATIO Fluids Routine Stage 3b chronic kidney disease Expected: 05/30/2025, Expires: 05/30/2026 [facility] Comment on above: Expected: 05/30/2025, Expires: Start: 05-30-2025 End: 05-30-2026 RENAL FUNCTION PANEL RENAL FUNCTION PANEL Lab Routine Stage 3b chronic kidney disease Expected: 05/30/2025, Expires: 05/30/2026 [facility] Comment on above: Expected: 05/30/2025, Expires: Start: 05-30-2025 End: 05-30-2026 Sodium [Moles/volume] in Urine SODIUM, RANDOM URINE Fluids Routine Stage 3b chronic kidney disease Expected: 05/30/2025, Expires: 05/30/2026 [facility] Comment on above: Expected: 05/30/2025, Expires: Start: 05-30-2025 End: 05-30-2026 Urinalysis, reagent strip without microscopy URINALYSIS, MACRO Fluids Routine Stage 3b chronic kidney disease Expected: 05/30/2025, Expires: 05/30/2026 [facility] Comment on above: Expected: 05/30/2025, Expires: Start: 05-30-2025 End: 05-30-2026 URINE PROTEIN/CREA RATIO, RANDOM URINE PROTEIN/CREA RATIO, RANDOM Fluids Routine Stage 3b chronic kidney disease Expected: 05/30/2025, Expires: 05/30/2026 [facility] Comment on above: Expected: 05/30/2025, Expires: Start: 05-30-2025 End: 05-30-2025 Patient encounter procedure 05/30/2025 11:30 AM EDT Office Visit [facility] [address] [place] [address] Christina Cartagena MD [address] [place] [address] [facility] Start: 04-17-2025 Patient discharge [facility] Start: 04-17-2025 Referral to occupational therapist [facility] Start: 04-17-2025 Referral to service [facility] Start: 04-16-2025 [facility] Start: 04-15-2025 Source specific culture [facility] Start: 04-15-2025 [facility] Start: 04-15-2025 Ambulation without limitation [facility] Start: 04-15-2025 Assessment of risk of venous thromboembolism [facility] Start: 04-15-2025 Care regimes management [facility] Start: 04-15-2025 Consultation [facility] Start: 04-15-2025 Consultation for treatment [facility] Start: 04-15-2025 Elevation of affected extremity [facility] Start: 04-15-2025 Incentive spirometry [facility] Start: 04-15-2025 Inhalation therapy procedure [facility] Start: 04-15-2025 Insertion of catheter into peripheral vein [facility] Start: 04-15-2025 Measuring intake and output [facility] Start: 04-15-2025 Notification of physician [facility] Start: 04-15-2025 Oxygen therapy [facility] Start: 04-15-2025 Providing care according to standard [facility] Start: 04-15-2025 Referral to market news reporter [facility] Start: 04-15-2025 Wound care [facility] Start: 04-15-2025 End: 04-15-2025 [facility] Start: 04-15-2025 Following clinical pathway protocol [facility] Start: 04-15-2025 MR Lower extremity [facility] Start: 04-15-2025 MRI of lower limb with contrast Lower Ext No Joint W/WO Cont [facility] Start: 04-15-2025 Bacterial nucleic acid assay [facility] Start: 04-15-2025 Verification routine [facility] Start: 04-15-2025 Hospital admission, emergency, from emergency room, medical nature [facility] Start: 04-15-2025 Admission procedure [facility] Start: 04-15-2025 [facility] Start: 04-15-2025 Anaerobic microbial culture Anaerobic Culture [facility] Start: 04-15-2025 Bacteria identified in Blood by Culture Blood Culture [facility] Start: 04-15-2025 Microbial culture, routine Wound Culture [facility] Start: 04-15-2025 Skin and Soft Tissue MRSA/MSSA (PCR Skin and Soft Tissue MRSA/MSSA (PCR [facility] Start: 04-15-2025 Patient referral to dietitian [facility] Start: 02-28-2025 End: 02-28-2026 US Kidney US RENAL RETROPERITONEAL Imaging Routine Stage 3b chronic kidney disease Expected: 02/28/2025, Expires: 02/28/2026 [facility] Comment on above: Expected: 02/28/2025, Expires: Start: 02-21-2025 Chemotherapy admn iv infusion tq ea hr CHEMO IV INFUSION ADDL HR [facility] Start: 02-21-2025 Chemotx admn iv nfs tq up 1 hr 11/14 sbst/drug CHEMO IV INFUSION 1 HR [facility] Start: 02-21-2025 Therapeutic injection iv push each new drug TX/PRO/DX INJ NEW DRUG ADDON [facility] Start: 02-13-2025 End: 02-13-2025 Patient encounter procedure 02/13/2025 11:30 AM EDT Office Visit [facility] [address] [facility] [address] [place] [id number] Georgina Moore MD [address] [facility] [place], [place] [id number] [facility] Start: 02-12-2025 End: 01-25-2026 DRUG SCREEN MED [...] Asteatosis cutis Actinic keratosis Other proteinuria Other halfway (current) drug therapy On statin therapy 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, halfway, current use Nocturia Long-term current use of high risk medication other than anticoagulant prison use of drug Infliximab (Remicade) long-term use History of osteomyelitis History of malignant neoplasm of skin Difficulty in urination Current use of halfway anticoagulation Abnormal renal function test Psoriatic arthritis mutilans Expected: 02/12/2025 (Approximate), Expires: 01/25/2026 [facility] [employer] Comment on above: Expected: 02/12/2025 (Approximate), Expi res: 01/25/2026 Start: 12-30-2024 DTaP/Tdap/Td Vaccines (2 - Td or Tdap) DTaP/Tdap/Td Vaccines (2 - Td or Tdap) [facility] Start: 12-30-2024 Tetanus vaccination TETANUS [facility] Start: 12-25-2024 Chemotherapy admn iv infusion tq ea hr CHEMO IV INFUSION ADDL HR [facility] Start: 12-25-2024 Chemotx admn iv nfs tq up 1 hr 11/14 sbst/drug CHEMO IV INFUSION 1 HR [facility] Start: 11-19-2024 End: 11-19-2024 Patient encounter procedure 11/19/2024 1:00 PM EST Office Visit [facility] [address] [place] [address] Coco Shah Jr., DO [address] [place] [address] [facility] Start: 11-09-2024 Therapeutic injection iv push each new drug TX/PRO/DX INJ NEW DRUG ADDON [facility] Start: 10-31-2024 End: 10-31-2024 Patient encounter procedure [facility] Start: 08-28-2024 End: 08-28-2025 Decision Dx SCC - Misc Path Test [facility] Work Phone: Comment on above: Expected: 08/28/2024 (Approximate), Expi res: 08/28/2025 Start: 07-15-2024 COVID-19 Vaccine ( season) COVID-19 Vaccine ( season) [facility] Start: 07-15-2024 COVID-19 Vaccine ( season) COVID-19 Vaccine ( season) [facility] Start: 07-15-2024 Influenza vaccination Influenza Vaccine (#1) [facility] Start: 05-07-2024 End: 05-07-2024 Patient encounter procedure 05/07/2024 12:00 PM EDT Office Visit [facility] [address] [place] [address] Coco Shah Jr., [address] [place] [address] [facility] Start: 01-13-2024 Chemotherapy admn iv infusion tq ea hr CHEMO IV INFUSION [facility] Start: 01-13-2024 Chemotx admn iv nfs tq up 1 hr 1/1st sbst/drug CHEMO IV INFUSION 1 HR [facility] Start: 01-13-2024 Therapeutic injection iv push each new drug TX/PRO/DX INJ NEW DRUG [facility] Start: 11-11-2023 Chemotherapy admn iv infusion tq ea hr CHEMO IV INFUSION [facility] Start: 11-11-2023 Chemotx admn iv nfs tq up 1 hr 1/1st sbst/drug CHEMO IV INFUSION 1 HR [facility] Start: 11-11-2023 Therapeutic injection iv push each new drug TX/PRO/DX INJ NEW DRUG [facility] Start: 10-26-2023 End: 10-26-2023 Patient encounter procedure 10/26/2023 2:30 PM EST Office Visit [facility] [address] [place] [id number] Pablo Wilson, Coco Carter, DO [address] [place] [phone] [facility] Start: 09-30-2023 Chemotherapy admn iv infusion tq ea hr CHEMO IV INFUSION [facility] Start: 09-30-2023 Chemotx admn iv nfs tq up 1 hr 1/1st sbst/drug CHEMO IV INFUSION 1 HR [facility] Start: 09-30-2023 Therapeutic injection iv push each new drug TX/PRO/DX INJ NEW DRUG [facility] Start: 08-19-2023 Iv infusion therapy prophylaxis/dx ea hour THER/PROPH/DIAG IV INF [facility] Start: 08-19-2023 Iv infusion therapy/prophylaxis /dx 1st to 1 [facility] Start: 07-15-2023 COVID-19 VACCINE () COVID-19 VACCINE () [facility] Start: 07-15-2023 Influenza vaccination INFLUENZA VACCINE (#1) [facility] Start: 07-08-2023 Chemotherapy admn iv infusion tq ea hr CHEMO IV [facility]: [facility]-2023 Chemotx admn iv nfs tq up 1 hr 1/1st sbst/drug CHEMO IV INFUSION 1 HR [facility] Start: 07-08-2023 Therapeutic injection iv push each new drug TX/PRO/DX INJ NEW DRUG [facility] Start: 05-27-2023 Chemotherapy admn iv infusion tq ea hr [facility] Start: 05-27-2023 Chemotx admn iv nfs tq up 1 hr 1/1st sbst/drug CHEMO IV INFUSION 1 HR [facility] Start: 05-27-2023 Therapeutic injection iv push each new drug TX/PRO/DX INJ NEW DRUG [facility] Start: 03-28-2023 End: 03-28-2023 Patient encounter procedure 03/28/2023 [facility] Coco Carter, [address] [place] [address] [facility] Rhe[facility] Start: 03-25-2023 Chemotherapy admn iv infusion tq ea hr CHEMO IV INFUSION [facility] Start: 03-25-2023 Chemotx admn iv nfs tq up 1 hr 1/1st sbst/drug CHEMO IV INFUSION 1 HR [facility] Start: 03-25-2023 Therapeutic injection iv push each new drug TX/PRO/DX INJ NEW DRUG [facility] Start: 03-01-2023 Colonoscopy COLORECTAL CANCER SCREENING DISCUSSION [facility] Start: 03-01-2023 Screening for malignant neoplasm of colon COLORECTAL CANCER SCREENING DISCUSSION [facility] Start: 02-27-2023 Patient discharge [facility] Start: 02-26-2023 Care planning and problem solving actions [facility] Start: 02-25-2023 Referral to market news reporter [facility] Start: 02-25-2023 Care planning and problem solving actions [facility] Start: 02-25-2023 Assessment of risk of venous thromboembolism [facility] Start: 02-25-2023 Catheterization of vein [facility] Start: 02-25-2023 Insertion of catheter into peripheral vein [facility] Start: 02-25-2023 Providing care according to standard [facility] Start: 02-25-2023 Referral to occupational therapist [facility] Start: 02-25-2023 Referral to service [facility] Start: 02-25-2023 [facility] Start: 02-25-2023 Following clinical pathway protocol [facility] Start: 02-25-2023 Admission procedure [facility] Start: 02-25-2023 [facility] Start: 02-25-2023 Patient referral to dietitian [facility] Start: 10-08-2022 Therapeutic injection iv push each new drug TX/PRO/DX INJ NEW DRUG [facility] Start: 09-20-2022 End: 09-20-2022 Patient encounter procedure 09/20/2022 Office Visit Rheumatology Pablo Wilson, Coco Carter, DO [address] [place] [address] [facility] Rheumatology Start: 07-16-2022 Chemotherapy admn iv infusion tq ea hr CHEMO IV INFUSION ADDL HR [facility] Work Phone: Start: 07-15-2022 Influenza vaccination INFLUENZA VACCINE (#1) [facility] Start: 07-07-2022 [facility] Work Phone: Start: 06-09-2022 X-ray of both feet Foot min 3 Views [facility] Work Phone: Start: 06-09-2022 XR Foot GE 3 Views [facility] Work Phone: Start: 06-09-2022 [facility] Work Phone: Start: 06-04-2022 Chemotherapy admn iv infusion tq ea hr CHEMO IV INFUSION ADDL HR [facility] Work Phone: Start: 05-12-2022 [facility] Work Phone: Start: 04-09-2022 Iv infusion therapy prophylaxis/dx ea hour THER/PROPH/DIAG IV INF [facility] Work Phone: Start: 04-09-2022 Iv infusion therapy/prophylaxis /dx 1st to 1 hr THER/PROPH/DIAG IV INF [facility] Work Phone: Start: 02-12-2022 Iv infusion therapy prophylaxis/dx ea hour THER/PROPH/DIAG IV INF [facility] Work Phone: Start: 02-12-2022 Iv infusion therapy/prophylaxis /dx 1st to 1 hr THER/PROPH/DIAG IV INF [facility] Work Phone: Start: 02-12-2022 Therapeutic injection iv push each new drug TX/PRO/DX INJ NEW DRUG [facility] Work Phone: Start: 01-23-2022 COVID-19 VACCINE (4 - Booster for Pfizer series) COVID-19 VACCINE (4 - Booster for Pfizer series) [facility] Start: 12-15-2021 Chemotherapy admn iv infusion tq ea hr CHEMO IV INFUSION ADDL HR [facility] Work Phone: Start: 12-15-2021 Chemotx admn iv nfs tq up 1 hr 1/ sbst/drug CHEMO IV INFUSION 1 HR [facility] Work Phone: Start: 11-20-2021 COVID-19 VACCINE (4 - Booster for Pfizer series) COVID-19 VACCINE (4 - Booster for Pfizer series) [facility] Start: 11-20-2021 COVID-19 VACCINE (4 - Pfizer series) COVID-19 VACCINE (4 - Pfizer series) [facility] Start: 07-27-2021 End: 07-27-2021 Patient encounter procedure 07/27/2021 Office Visit Rheumatology Pablo Wilson, Coco Carter, [address] [place] [address] [facility] Start: 07-15-2021 Influenza vaccination INFLUENZA VACCINE (Season Ended) [facility] Start: 03-23-2021 End: 03-23-2021 Office Visit 03/23/2021 Office Visit Rheumatology Coco Shah Jr., DO [address] [facility] [place] [phone] [facility] Start: 09-22-2020 End: 09-22-2020 Office Visit 09/22/2020 Office Visit Rheumatology Coco Shah Jr., DO [address] [facility] [place] [phone] [facility] Start: 07-15-2020 Influenza vaccination INFLUENZA VACCINE (#1) [facility] Start: 02-20-2020 End: 02-20-2020 Office Visit 02/20/2020 Office Visit Rheumatology Coco Shah Jr., DO [address] [facility] [place] [address] [phone] [facility] Start: 09-25-2019 Potassium molar conc POTASSIUM [facility] Work Phone: Start: 07-23-2019 End: 07-23-2019 Office Visit [facility] Start: 07-15-2019 Influenza vaccination INFLUENZA VACCINE (#1) [facility] Start: 01-22-2019 End: 01-22-2019 Ambulatory 01/22/2019 Office Visit Rheumatology Coco Shah Jr., DO [address] [facility] [place] [address] [phone] [facility] Start: 07-15-2018 Influenza vaccination INFLUENZA VACCINE (#1) [facility] Work Phone: Start: 07-03-2018 End: 07-03-2018 Appointment Appointment [facility] Work Phone: Start: 2018 RSV Immunization for Adults (1 - 1-dose 75+ series) RSV Immunization for Adults (1 - 1-dose 75+ series) [facility] Start: 2018 RSV VACCINE (1 - 1-dose 75+ series) RSV VACCINE (1 - 1-dose 75+ series) [facility] Start: 11-02-2017 End: 11-02-2017 Appointment Appointment [facility] Work Phone: Start: 10-03-2017 End: 10-11-2017 Echo tthrc r-t 2d w/wom-mode compl spec&colr d Echo Complete with Color Flow [facility] Work Phone: Start: 10-03-2017 End: 10-03-2017 Follow Up Appt 6 months Follow Up Appt 6 months [facility] Work Phone: Start: 10-03-2017 End: 10-03-2017 PFM PFM [facility] Work Phone: Start: 05-09-2017 End: 10-11-2017 BWA BWA [facility] Work Phone: Start: 05-09-2017 End: 10-11-2017 Follow Up Appt 6 months Follow Up Appt 6 months [facility] Work Phone: Start: 11-29-2016 End: 11-29-2016 Follow Up Appt 6 months Follow Up Appt 6 months [facility] Work Phone: Start: 11-29-2016 End: 11-29-2016 PFM PFM [facility] Work Phone: Start: 11-16-2016 End: 11-16-2016 CSM CSM [facility] Work Phone: Start: 11-16-2016 End: 11-16-2016 Follow Up Appt 6 months Follow Up Appt 6 months [facility] Work Phone: Start: 11-16-2016 End: 11-16-2016 Pulmonary Function Test - complete Pulmonary Function Test - complete [facility] Work Phone: Start: 11-16-2016 End: 11-16-2016 Pulmonary stress test/simple Pulmonary stress testing; simple (eg, 6-minute walk) [facility] Work Phone: Start: 05-31-2016 End: 05-31-2016 Follow Up Appt 6 months Follow Up Appt 6 months [facility] Work Phone: Start: 05-31-2016 End: 05-31-2016 MMM MMM [facility] Work Phone: Start: 05-20-2016 End: 11-21-2015 *Hepatic Function Panel *Hepatic Function Panel [facility] Work Phone: Start: 05-20-2016 End: 11-21-2015 Lipid panel [AGGREGATE] *Lipid Profile CC PCP [facility] Work Phone: Start: 05-19-2016 End: 05-19-2016 Follow Up Appt 6 months Follow Up Appt 6 months [facility] Work Phone: Start: 04-19-2016 End: 04-19-2016 Debridement subcutaneous tissue 20 sq cm/< Debridement, subcutaneous tissue first 20 sq cm or less [facility] Work Phone: Start: 04-09-2016 End: 04-09-2016 Radex foot complete minimum 3 views X-Ray, Foot [facility] Work Phone: Start: 04-06-2016 End: 04-06-2016 *MRSAW, Staph A, DNA, Amp Probe, Wound *MRSAW, Staph A, DNA, Amp Probe, Wound [facility] Work Phone: Start: 01-23-2016 End: 01-24-2016 Erythrocyte sedimentation rate *Sedimentation Rate (ESR) [facility] Work Phone: Start: 01-23-2016 End: 01-24-2016 Hemoglobin A1c/Hemoglobin.total mass fraction (Bld) *HgA1C [facility] Work Phone: Start: 01-23-2016 End: 04-06-2016 Radex foot complete minimum 3 views X-Ray, Foot [facility] Work Phone: Start: 11-17-2015 End: 11-20-2015 *Hepatic Function Panel *Hepatic Function Panel [facility] Work Phone: Start: 11-17-2015 End: 11-17-2015 Ecg routine ecg w/least 12 lds w/i&r EKG (In office) [facility] Work Phone: Start: 11-17-2015 End: 11-17-2015 Follow Up Appt 6 months Follow Up Appt 6 months [facility] Work Phone: Start: 11-17-2015 End: 11-20-2015 Lipid panel [AGGREGATE] *Lipid Profile CC PCP [facility] Work Phone: Start: 11-17-2015 End: 11-17-2015 PFM PFM [facility] Work Phone: Start: 11-12-2015 End: 11-12-2015 Follow Up Appt 6 months Follow Up Appt 6 months [facility] Work Phone: Start: 09-22-2015 End: 10-17-2015 Erythrocyte sedimentation rate *Sedimentation Rate (ESR) [facility] Work Phone: Start: 09-22-2015 End: 10-17-2015 Radex foot complete minimum 3 views X-Ray, Foot [facility] Work Phone: Start: 08-25-2015 End: 08-25-2015 *CBC with Differential *CBC with Differential [facility] Work Phone: Start: 08-25-2015 End: 08-25-2015 *Renal Panel *Renal Panel [facility] Work Phone: Start: 08-25-2015 End: 08-25-2015 Erythrocyte sedimentation rate *Sedimentation Rate (ESR) [facility] Work Phone: Start: 08-14-2015 End: 08-25-2015 Bacterica wound culture *Culture and Sensitivity, wound [facility] Work Phone: Start: 07-31-2015 End: 07-31-2015 Chest x-ray X-Ray, Chest, PA & Lateral [facility] Work Phone: Start: 07-31-2015 End: 07-31-2015 Follow Up Appt 3 months Follow Up Appt 3 months [facility] Work Phone: Start: 07-31-2015 End: 07-31-2015 Pulmonary Function Test - complete Pulmonary Function Test - complete [facility] Work Phone: Start: 07-31-2015 End: 07-31-2015 Pulmonary stress test/simple Pulmonary stress testing; simple (eg, 6-minute walk) [facility] Work Phone: Start: 05-30-2015 End: 11-17-2015 Follow Up Appt 6 months Follow Up Appt 6 months [facility] Work Phone: Start: 05-30-2015 End: 11-17-2015 MMM MMM [facility] Work Phone: Start: 07-22-2014 End: 07-22-2014 Follow Up Appt 6 months Follow Up Appt 6 months [facility] Work Phone: Start: 07-22-2014 End: 07-22-2014 PFM PFM [facility] Work Phone: Start: 01-14-2014 End: 01-14-2014 Follow Up Appt 6 months Follow Up Appt 6 months [facility] Work Phone: Start: 01-14-2014 End: 01-14-2014 MMM MMM [facility] Work Phone: Start: 12-14-2013 End: 11-17-2015 *Hepatic Function Panel *Hepatic Function Panel [facility] video Phone: Start: 12-14-2013 End: 11-17-2015 Lipid panel [AGGREGATE] *Lipid Profile CC PCP [facility] Work Phone: Start: 06-11-2013 End: 01-14-2014 Ecg routine ecg w/least 12 lds w/i&r EKG (In office) [facility] Work Phone: Start: 06-11-2013 End: 01-14-2014 Follow Up Appt 6 months Follow Up Appt 6 months [facility] Work Phone: Start: 06-11-2013 End: 01-14-2014 PFM PFM [facility] Work Phone: Start: 11-24-2012 End: 05-15-2013 Follow [...] (3 of 3 - 19+ 3-dose series) [employer] Start: 01-28-2010 Hepatitis B Vaccines (3 of 3 - 19+ 3-dose series) Hepatitis B Vaccines (3 of 3 - 19+ 3-dose series) [facility] Start: 2008 Abdominal aortic aneurysm screening ABDOMINAL AORTIC ANEURYSM HIGH RISK SCREEN [facility] Work Phone: Start: 2008 Pneumococcal vaccination PNEUMOCOCCAL VACCINE SERIES (1 of 2 - PCV13) [facility] Work Phone: Start: 2003 RSV Immunization aged 60 or older (1 - 1-dose 60+ series) RSV Immunization aged 60 or older (1 - 1-dose 60+ series) [facility] [employer] Start: 1993 Colonoscopy [employer] [facility] Start: 1993 Prostate specific antigen measurement PROSTATE CANCER SCREENING DISCUSSION [facility] Work Phone: Start: 1993 Protein mass conc COLON CANCER SCREENING DISCUSSION [facility] Work Phone: Start: 1993 Zoster vaccine hzv live for subcutaneous use ZOSTER (SHINGLES) VACCINE (1 of 2) [facility] Start: 1993 Zoster Vaccines (1 of 2) Zoster Vaccines (1 of 2) [facility] Start: 1983 Fasting lipid profile LIPID SCREENING [facility] Work Phone: Start: 1962 Third diphtheria, tetanus and acellular pertussis (DTaP) vaccination TDAP (ADULT) [facility] Start: 1961 Diabetes: Estimated Glomerular Filtration Rate for Kidney Health Diabetes: Estimated Glomerular Filtration Rate for Kidney Health [facility] Start: 1961 Diabetes: Urine Albumin-Creatinine Ratio for Kidney [facility] Diabetes: Urine Albumin-Creatinine Ratio for Kidney Health [facility] Start: 1961 Tetanus vaccination TETANUS [facility] Start: 1959 COVID-19 VACCINE (1) COVID-19 VACCINE (1) [facility] Start: 1955 Depression Screening Depression Screening [facility] Start: 1949 Pneumococcal vaccination PNEUMOCOCCAL VACCINE SERIES (1 - PCV) [facility] Start: 1943 Examination of skin Derm Melanoma Skin Check [facility] Start: 1943 Hepatitis C antibody, confirmatory test HEPATITIS C VIRUS SCREENING [facility] Start: 1943 Hepatitis C screening HEPATITIS C VIRUS SCREENING [facility] Start: 1943 Medicare Annual Wellness (AWV) Medicare Annual Wellness (AWV) [facility] Start: 1943 Potassium [Moles/Vol] POTASSIUM [facility] End: 05-19-2023 Alanine aminotransferase [Enzymatic activity/volume] in Serum or Plasma ALT Lab Routine Psoriatic arthritis Psoriatic arthritis mutilans Unspecified open wound, unspecified foot, initial encounter 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 Photoaged skin CRP elevated History of malignant neoplasm of skin History of osteomyelitis 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 Long-term current use of high risk medication other than anticoagulant 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, halfway, current use On statin therapy Other halfway (current) drug therapy Personal history of other malignant neoplasm of skin Cervical disc disorder Cervical disc disorder, unspecified, unspecified cervical region Primary osteoarthritis of both knees Seborrheic eczema Eczema, unspecified type Encounter for long-term (current) use of non-steroidal anti-inflammatories 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 Osteoarthritis of both knees, unspecified osteoarthritis type Every 8 Weeks for 6 Occurrences starting 05/19/2022 until 05/19/2023 [employer] Comment on above: Every 8 Weeks for [...] other than anticoagulant On statin therapy Other 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 (current) drug therapy Cervical disc disorder Cervical disc disorder, unspecified, unspecified cervical region Primary osteoarthritis of both knees Every 12 Weeks for 4 Occurrences starting 09/20/2022 until 09/20/2023 [employer] Comment on above: Every 12 Weeks for [...] high risk medication other than anticoagulant 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, halfway, current use On statin therapy Other halfway (current) drug therapy Cervical disc disorder Cervical disc disorder, unspecified, unspecified cervical region Primary osteoarthritis of both knees Infliximab (Remicade) long-term use Every 12 Weeks for 4 Occurrences starting 07/04/2023 until 07/04/2024 [employer] Comment on above: Every 12 Weeks for [...] of other malignant neoplasm of skin Other 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 (current) drug therapy On statin therapy Nocturia 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, 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, current use Long-term current use of high risk medication other than anticoagulant History of osteomyelitis History of malignant neoplasm of skin Encounter for long-term (current) use of non-steroidal anti-inflammatories Every 12 Weeks for 4 Occurrences starting 10/26/2023 until 10/26/2024 [facility] Comment on above: Every 12 Weeks [...] other than anticoagulant On statin therapy Other 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 (current) drug therapy Personal history of other malignant neoplasm of skin Cervical disc disorder Cervical disc disorder, unspecified, unspecified cervical region Primary osteoarthritis of both knees 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, halfway, current use Seborrheic eczema Eczema, unspecified type prison 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 Osteoarthritis of both knees, unspecified osteoarthritis type Every 12 Weeks for 4 Occurrences starting 05/07/2024 until 05/07/2025 [facility] [employer] [facility] Comment on above: Every 12 Weeks [...] Asteatosis cutis Actinic keratosis Other proteinuria Other 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 (current) drug therapy On statin therapy 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, 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, current use Nocturia Long-term current use of high risk medication other than anticoagulant 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 use of drug Infliximab (Remicade) long-term use History of osteomyelitis History of malignant neoplasm of skin Difficulty in urination Current use of 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 anticoagulation Abnormal renal function test 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 Occurrences starting 01/25/2025 until 01/25/2026 [facility] Comment on above: Every 12 Weeks for 4 Occurrences startin g 01/25/2025 until 01/25/2026 End: 10-08-2020 ALT [Catalytic activity/Vol] ALT Lab Routine Psoriatic arthritis 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 Asteatosis cutis Seborrheic eczema Long-term current use of high risk medication other than anticoagulant 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, 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, current use Other 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 (current) drug therapy Eczema, unspecified type Cervical disc disorder Cervical disc disorder, unspecified, unspecified cervical region Osteoarthritis of both knees, unspecified osteoarthritis type Primary osteoarthritis of both knees Psoriasis prison 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 Encounter for long-term (current) use of non-steroidal anti-inflammatories 6 Occurrences starting 10/08/2019 until 10/08/2020, 1 completed [facility] [employer] Comment on above: 6 Occurrences starting 10/08/2019 until 10/08/2020, 1 completed End: 09-22-2021 ALT [Catalytic activity/Vol] ALT Lab Routine Psoriatic arthritis mutilans Psoriatic arthritis Psoriasis Eczema, unspecified type Personal history of other malignant neoplasm of skin Other halfway (current) drug therapy 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, 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, current use Long-term current use of high risk medication other than anticoagulant History of malignant neoplasm of skin Encounter for long-term (current) use of non-steroidal anti-inflammatories Primary osteoarthritis of both knees Osteoarthritis of both knees, unspecified osteoarthritis type Cervical disc disorder, unspecified, unspecified cervical region Cervical disc disorder Pustulosis palmaris et plantaris 6 Occurrences starting 11/04/2020 until 09/22/2021 [facility] Comment on above: 6 Occurrences starting 11/04/2020 until 09/22/2021 Anaerobic Culture Anaerobic Culture [facility] Work Phone: Anaerobic microbial culture Anaerobic Culture [facility] Work Phone: Anion gap in Serum o r Plasma [facility] Anion gap in Serum o r Plasma [facility] Anion gap in Serum o r Plasma [facility] End: 05-19-2023 Aspartate aminotransferase [Enzymatic activity/volume] in Serum or Plasma AST Lab Routine Psoriatic arthritis Psoriatic arthritis mutilans Unspecified open wound, unspecified foot, initial encounter 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 Photoaged skin CRP elevated History of malignant neoplasm of skin History of osteomyelitis prison (current) use of antibiotics Long-term current use of high risk medication other than anticoagulant 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, 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, current use On statin therapy Other halfway (current) drug therapy Personal history of other malignant neoplasm of skin Cervical disc disorder Cervical disc disorder, unspecified, unspecified cervical region Primary osteoarthritis of both knees Seborrheic eczema Eczema, unspecified type Encounter for long-term (current) use of non-steroidal anti-inflammatories prison 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 Osteoarthritis of both knees, unspecified osteoarthritis type Every 8 Weeks for 6 Occurrences starting 05/19/2022 until 05/19/2023 [employer] Comment on above: Every 8 Weeks for [...] other than anticoagulant On statin therapy Other halfway (current) drug therapy Cervical disc disorder Cervical disc disorder, unspecified, unspecified cervical region Primary osteoarthritis of both knees Every 12 Weeks for 4 Occurrences starting 09/20/2022 until 09/20/2023 [employer] Comment on above: Every 12 Weeks for [...] high risk medication other than anticoagulant 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, halfway, current use On statin therapy Other halfway (current) drug therapy Cervical disc disorder Cervical disc disorder, unspecified, unspecified cervical region Primary osteoarthritis of both knees Infliximab (Remicade) long-term use Every 12 Weeks for 4 Occurrences starting 07/04/2023 until 07/04/2024 [facility] Comment on above: Every 12 Weeks [...] of other malignant neoplasm of skin Other halfway (current) drug therapy On statin therapy Nocturia 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, halfway, current use Long-term current use of high risk medication other than anticoagulant History of osteomyelitis History of malignant neoplasm of skin Encounter for long-term (current) use of non-steroidal anti-inflammatories Every 12 Weeks for 4 Occurrences starting 10/26/2023 until 10/26/2024 [facility] Comment on above: Every 12 Weeks [...] other than anticoagulant On statin therapy Other 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 (current) drug therapy Personal history of other malignant neoplasm of skin Cervical disc disorder Cervical disc disorder, unspecified, unspecified cervical region Primary osteoarthritis of both knees 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, halfway, current use Seborrheic eczema Eczema, unspecified type prison 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 Osteoarthritis of both knees, unspecified osteoarthritis type Every 12 Weeks for 4 Occurrences starting 05/07/2024 until 05/07/2025 [employer] Comment on above: Every 12 Weeks for [...] Asteatosis cutis Actinic keratosis Other proteinuria Other 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 (current) drug therapy On statin therapy 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, halfway, current use Nocturia Long-term current use of high risk medication other than anticoagulant prison use of drug Infliximab (Remicade) long-term use History of osteomyelitis History of malignant neoplasm of skin Difficulty in urination Current use of halfway anticoagulation Abnormal renal function test 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 Occurrences starting 01/25/2025 until 01/25/2026 [employer] Comment on above: Every 12 Weeks for 4 Occurrences startin g 01/25/2025 until 01/25/2026 End: 10-08-2020 AST [Catalytic activity/Vol] AST Lab Routine Psoriatic arthritis 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 Asteatosis cutis Seborrheic eczema Long-term current use of high risk medication other than anticoagulant 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, halfway, current use Other halfway (current) drug therapy Eczema, unspecified type Cervical disc disorder Cervical disc disorder, unspecified, unspecified cervical region Osteoarthritis of both knees, unspecified osteoarthritis type Primary osteoarthritis of both knees Psoriasis prison 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 Encounter for long-term (current) use of non-steroidal anti-inflammatories 6 Occurrences starting 10/08/2019 until 10/08/2020, 1 completed [facility] Comment on above: 6 Occurrences starting 10/08/2019 until 10/08/2020, 1 completed End: 09-22-2021 AST [Catalytic activity/Vol] AST Lab Routine Psoriatic arthritis mutilans Psoriatic arthritis Psoriasis Eczema, unspecified type Personal history of other malignant neoplasm of skin Other halfway (current) drug therapy 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, 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, current use Long-term current use of high risk medication other than anticoagulant History of malignant neoplasm of skin Encounter for long-term (current) use of non-steroidal anti-inflammatories Primary osteoarthritis of both knees Osteoarthritis of both knees, unspecified osteoarthritis type Cervical disc disorder, unspecified, unspecified cervical region Cervical disc disorder Pustulosis palmaris et plantaris 6 Occurrences starting 11/04/2020 until 09/22/2021 [facility] Comment on above: 6 Occurrences starting 11/04/2020 until 09/22/2021 Bacteria identified in Unspecified specimen by Anaerobe culture [facility] Work Phone: BUN/Creatinine ratio [facility] BUN/Creatinine ratio [facility] BUN/Creatinine ratio [facility] C reactive protein [Mass/volume] in Serum or Plasma [facility] End: 05-19-2023 C-reactive protein C REACTIVE PROTEIN Lab Routine Psoriatic arthritis Psoriatic arthritis mutilans Unspecified open wound, unspecified foot, initial encounter 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 Photoaged skin CRP elevated History of malignant neoplasm of skin History of osteomyelitis prison (current) use of antibiotics Long-term current use of high risk medication other than anticoagulant 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, halfway, current use On statin therapy Other 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 (current) drug therapy Personal history of other malignant neoplasm of skin Cervical disc disorder Cervical disc disorder, unspecified, unspecified cervical region Primary osteoarthritis of both knees Seborrheic eczema Eczema, unspecified type Encounter for long-term (current) use of non-steroidal anti-inflammatories prison 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 Osteoarthritis of both knees, unspecified osteoarthritis type Every 8 Weeks for 6 Occurrences starting 05/19/2022 until 05/19/2023 [employer] Comment on above: Every 8 Weeks for [...] other than anticoagulant On statin therapy Other 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 (current) drug therapy Cervical disc disorder Cervical disc disorder, unspecified, unspecified cervical region Primary osteoarthritis of both knees Every 12 Weeks for 4 Occurrences starting 09/20/2022 until 09/20/2023 [employer] Comment on above: Every 12 Weeks for [...] high risk medication other than anticoagulant 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, halfway, current use On statin therapy Other 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 (current) drug therapy Cervical disc disorder Cervical disc disorder, unspecified, unspecified cervical region Primary osteoarthritis of both knees Infliximab (Remicade) long-term use Every 12 Weeks for 4 Occurrences starting 07/04/2023 until 07/04/2024 [employer] Comment on above: Every 12 Weeks for [...] of other malignant neoplasm of skin Other 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 (current) drug therapy On statin therapy Nocturia 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, 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, current use Long-term current use of high risk medication other than anticoagulant History of osteomyelitis History of malignant neoplasm of skin Encounter for long-term (current) use of non-steroidal anti-inflammatories Every 12 Weeks for 4 Occurrences starting 10/26/2023 until 10/26/2024 [employer] Comment on above: Every 12 Weeks for [...] other than anticoagulant On statin therapy Other 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 (current) drug therapy Personal history of other malignant neoplasm of skin Cervical disc disorder Cervical disc disorder, unspecified, unspecified cervical region Primary osteoarthritis of both knees 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, halfway, current use Seborrheic eczema Eczema, unspecified type prison 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 Osteoarthritis of both knees, unspecified osteoarthritis type Every 12 Weeks for 4 Occurrences starting 05/07/2024 until 05/07/2025 [facility] Comment on above: Every 12 Weeks [...] Asteatosis cutis Actinic keratosis Other proteinuria Other 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 (current) drug therapy On statin therapy 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, 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, current use Nocturia Long-term current use of high risk medication other than anticoagulant 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 use of drug Infliximab (Remicade) long-term use History of osteomyelitis History of malignant neoplasm of skin Difficulty in urination Current use of 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 anticoagulation Abnormal renal function test 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 Occurrences starting 01/25/2025 until 01/25/2026 [facility] Comment on above: Every 12 Weeks for 4 Occurrences startin g 01/25/2025 until 01/25/2026 Calcium [Mass/volume ] in Serum or Plasma [facility] Calcium [Mass/volume ] in Serum or Plasma [facility] Calcium [Mass/volume ] in Serum or Plasma [facility] Carbon dioxide, tota l [Moles/volume] in Central venous blood [facility] Carbon dioxide, tota l [Moles/volume] in Central venous blood [facility] Carbon dioxide, tota l [Moles/volume] in Central venous blood [facility] End: 10-08-2020 CBC, EDIF, PLATELET CBC, EDIF, PLATELET Lab Routine Psoriatic arthritis 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 Asteatosis cutis Seborrheic eczema Long-term current use of high risk medication other than anticoagulant 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, 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, current use Other 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 (current) drug therapy Eczema, unspecified type Cervical disc disorder Cervical disc disorder, unspecified, unspecified cervical region Osteoarthritis of both knees, unspecified osteoarthritis type Primary osteoarthritis of both knees Psoriasis 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 Encounter for long-term (current) use of non-steroidal anti-inflammatories 6 Occurrences starting 10/08/2019 until 10/08/2020, 1 completed [facility] Comment on above: 6 Occurrences starting 10/08/2019 until 10/08/2020, 1 completed End: 09-22-2021 Complete blood count with white cell differential, automated CBC, EDIF, PLATELET Lab Routine Psoriatic arthritis mutilans Psoriatic arthritis Psoriasis Eczema, unspecified type Personal history of other malignant neoplasm of skin Other halfway (current) drug therapy 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, halfway, current use Long-term current use of high risk medication other than anticoagulant History of malignant neoplasm of skin Encounter for long-term (current) use of non-steroidal anti-inflammatories Primary osteoarthritis of both knees Osteoarthritis of both knees, unspecified osteoarthritis type Cervical disc disorder, unspecified, unspecified cervical region Cervical disc disorder Pustulosis palmaris et plantaris 6 Occurrences starting 11/04/2020 until 09/22/2021 [facility] Comment on above: 6 Occurrences starting 11/04/2020 until 09/22/2021 End: 05-19-2023 Complete blood count with white cell differential, automated CBC, EDIF, PLATELET Lab Routine Psoriatic arthritis Psoriatic arthritis mutilans Unspecified open wound, unspecified foot, initial encounter 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 Photoaged skin CRP elevated History of malignant neoplasm of skin History of osteomyelitis 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 Long-term current use of high risk medication other than anticoagulant 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, 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, current use On statin therapy Other halfway (current) drug therapy Personal history of other malignant neoplasm of skin Cervical disc disorder Cervical disc disorder, unspecified, unspecified cervical region Primary osteoarthritis of both knees Seborrheic eczema Eczema, unspecified type Encounter for long-term (current) use of non-steroidal anti-inflammatories prison 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 Osteoarthritis of both knees, unspecified osteoarthritis type Every 8 Weeks for 6 Occurrences starting 05/19/2022 until 05/19/2023 [facility] [place] [facility] Comment on above: Every 8 Weeks for [...] other than anticoagulant On statin therapy Other 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 (current) drug therapy Cervical disc disorder Cervical disc disorder, unspecified, unspecified cervical region Primary osteoarthritis of both knees Every 12 Weeks for 4 Occurrences starting 09/20/2022 until 09/20/2023 [employer] Comment on above: Every 12 Weeks for [...] high risk medication other than anticoagulant 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, 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, current use On statin therapy Other halfway (current) drug therapy Cervical disc disorder Cervical disc disorder, unspecified, unspecified cervical region Primary osteoarthritis of both knees Infliximab (Remicade) long-term use Every 12 Weeks for 4 Occurrences starting 07/04/2023 until 07/04/2024 [employer] Comment on above: Every 12 Weeks for [...] of other malignant neoplasm of skin Other 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 (current) drug therapy On statin therapy Nocturia 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, halfway, current use Long-term current use of high risk medication other than anticoagulant History of osteomyelitis History of malignant neoplasm of skin Encounter for long-term (current) use of non-steroidal anti-inflammatories Every 12 Weeks for 4 Occurrences starting 10/26/2023 until 10/26/2024 [facility] Comment on above: Every 12 Weeks [...] other than anticoagulant On statin therapy Other halfway (current) drug therapy Personal history of other malignant neoplasm of skin Cervical disc disorder Cervical disc disorder, unspecified, unspecified cervical region Primary osteoarthritis of both knees 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, 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, current use Seborrheic eczema Eczema, unspecified type prison 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 Osteoarthritis of both knees, unspecified osteoarthritis type Every 12 Weeks for 4 Occurrences starting 05/07/2024 until 05/07/2025 [facility] Comment on above: Every 12 Weeks [...] Asteatosis cutis Actinic keratosis Other proteinuria Other 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 (current) drug therapy On statin therapy 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, halfway, current use Nocturia Long-term current use of high risk medication other than anticoagulant 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 use of drug Infliximab (Remicade) long-term use History of osteomyelitis History of malignant neoplasm of skin Difficulty in urination Current use of 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 anticoagulation Abnormal renal function test 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 Occurrences starting 01/25/2025 until 01/25/2026 [employer] Comment on above: Every 12 Weeks for 4 Occurrences startin g 01/25/2025 until 01/25/2026 Complete blood count with white cell differential, automated CBC, EDIF, PLATELET Lab Routine Stage 3b chronic kidney disease Ordered: 02/28/2025 [employer] Comment on above: Ordered: 02/28/2025 End: 10-08-2020 Creatinine [Mass/Vol] CREATININE SERUM Lab Routine Psoriatic arthritis 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 Asteatosis cutis Seborrheic eczema Long-term current use of high risk medication other than anticoagulant 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, 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, current use Other 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 (current) drug therapy Eczema, unspecified type Cervical disc disorder Cervical disc disorder, unspecified, unspecified cervical region Osteoarthritis of both knees, unspecified osteoarthritis type Primary osteoarthritis of both knees Psoriasis 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 Encounter for long-term (current) use of non-steroidal anti-inflammatories 6 Occurrences starting 10/08/2019 until 10/08/2020, 1 completed [facility] Comment on above: 6 Occurrences starting 10/08/2019 until 10/08/2020, 1 completed End: 09-22-2021 Creatinine [Mass/Vol] CREATININE SERUM Lab Routine Psoriatic arthritis mutilans Psoriatic arthritis Psoriasis Eczema, unspecified type Personal history of other malignant neoplasm of skin Other 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 (current) drug therapy 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, 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, current use Long-term current use of high risk medication other than anticoagulant History of malignant neoplasm of skin Encounter for long-term (current) use of non-steroidal anti-inflammatories Primary osteoarthritis of both knees Osteoarthritis of both knees, unspecified osteoarthritis type Cervical disc disorder, unspecified, unspecified cervical region Cervical disc disorder Pustulosis palmaris et plantaris 6 Occurrences starting 11/04/2020 until 09/22/2021 [employer] Comment on above: 6 Occurrences starting 11/04/2020 until 09/22/2021 End: 05-19-2023 Creatinine [Mass/volume] in Serum or Plasma CREATININE SERUM Lab Routine Psoriatic arthritis Psoriatic arthritis mutilans Unspecified open wound, unspecified foot, initial encounter 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 Photoaged skin CRP elevated History of malignant neoplasm of skin History of osteomyelitis prison (current) use of antibiotics Long-term current use of high risk medication other than anticoagulant 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, 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, current use On statin therapy Other halfway (current) drug therapy Personal history of other malignant neoplasm of skin Cervical disc disorder Cervical disc disorder, unspecified, unspecified cervical region Primary osteoarthritis of both knees Seborrheic eczema Eczema, unspecified type Encounter for long-term (current) use of non-steroidal anti-inflammatories 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 Osteoarthritis of both knees, unspecified osteoarthritis type Every 8 Weeks for 6 Occurrences starting 05/19/2022 until 05/19/2023 [employer] Comment on above: Every 8 Weeks for [...] other than anticoagulant On statin therapy Other 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 (current) drug therapy Cervical disc disorder Cervical disc disorder, unspecified, unspecified cervical region Primary osteoarthritis of both knees Every 12 Weeks for 4 Occurrences starting 09/20/2022 until 09/20/2023 [employer] Comment on above: Every 12 Weeks for [...] high risk medication other than anticoagulant 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, 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, current use On statin therapy Other halfway (current) drug therapy Cervical disc disorder Cervical disc disorder, unspecified, unspecified cervical region Primary osteoarthritis of both knees Infliximab (Remicade) long-term use Every 12 Weeks for 4 Occurrences starting 07/04/2023 until 07/04/2024 [facility] Comment on above: Every 12 Weeks [...] of other malignant neoplasm of skin Other halfway (current) drug therapy On statin therapy Nocturia 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, halfway, current use Long-term current use of high risk medication other than anticoagulant History of osteomyelitis History of malignant neoplasm of skin Encounter for long-term (current) use of non-steroidal anti-inflammatories Every 12 Weeks for 4 Occurrences starting 10/26/2023 until 10/26/2024 [employer] Comment on above: Every 12 Weeks for [...] other than anticoagulant On statin therapy Other 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 (current) drug therapy Personal history of other malignant neoplasm of skin Cervical disc disorder Cervical disc disorder, unspecified, unspecified cervical region Primary osteoarthritis of both knees 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, halfway, current use Seborrheic eczema Eczema, unspecified type prison 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 Osteoarthritis of both knees, unspecified osteoarthritis type Every 12 Weeks for 4 Occurrences starting 05/07/2024 until 05/07/2025 [facility] Comment on above: Every 12 Weeks [...] Asteatosis cutis Actinic keratosis Other proteinuria Other halfway (current) drug therapy On statin therapy 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, halfway, current use Nocturia Long-term current use of high risk medication other than anticoagulant prison use of drug Infliximab (Remicade) long-term use History of osteomyelitis History of malignant neoplasm of skin Difficulty in urination Current use of halfway anticoagulation Abnormal renal function test 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 Occurrences starting 01/25/2025 until 01/25/2026 [facility] Comment on above: Every 12 Weeks for 4 Occurrences startin g 01/25/2025 until 01/25/2026 Creatinine [Mass/vol ume] in Serum or Plasma [facility] Creatinine [Mass/vol ume] in Serum or Plasma [facility] Creatinine [Mass/vol ume] in Serum or Plasma [facility] End: 10-08-2020 CRP [Mass/Vol] C REACTIVE PROTEIN Lab Routine Psoriatic arthritis 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 Asteatosis cutis Seborrheic eczema Long-term current use of high risk medication other than anticoagulant 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, 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, current use Other halfway (current) drug therapy Eczema, unspecified type Cervical disc disorder Cervical disc disorder, unspecified, unspecified cervical region Osteoarthritis of both knees, unspecified osteoarthritis type Primary osteoarthritis of both knees Psoriasis prison 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 Encounter for long-term (current) use of non-steroidal anti-inflammatories 6 Occurrences starting 10/08/2019 until 10/08/2020, 1 completed [facility] Comment on above: 6 Occurrences starting 10/08/2019 until 10/08/2020, 1 completed End: 09-22-2021 CRP [Mass/Vol] C REACTIVE PROTEIN Lab Routine Psoriatic arthritis mutilans Psoriatic arthritis Psoriasis Eczema, unspecified type Personal history of other malignant neoplasm of skin Other halfway (current) drug therapy 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, 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, 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 Long-term current use of high risk medication other than anticoagulant History of malignant neoplasm of skin Encounter for long-term (current) use of non-steroidal anti-inflammatories Primary osteoarthritis of both knees Osteoarthritis of both knees, unspecified osteoarthritis type Cervical disc disorder, unspecified, unspecified cervical region Cervical disc disorder Pustulosis palmaris et plantaris 6 Occurrences starting 11/04/2020 until 09/22/2021 [employer] Comment on above: 6 Occurrences starting 11/04/2020 until 09/22/2021 Erythrocyte mean corpuscular volume determination [facility] Erythrocyte mean corpuscular volume determination [facility] Erythrocyte mean corpuscular volume determination [facility] Erythrocyte sedimentation rate [facility] Glucose [Mass/volume ] in Serum or Plasma [facility] Glucose [Mass/volume ] in Serum or Plasma [facility] Glucose [Mass/volume ] in Serum or Plasma [facility] Hematocrit [Volume Fraction] of Blood [facility] Hematocrit [Volume Fraction] of Blood [facility] Hematocrit [Volume Fraction] of Blood [facility] Hemoglobin [Mass/vol ume] in Blood [facility] Hemoglobin [Mass/vol ume] in Blood [facility] Hemoglobin [Mass/vol ume] in Blood [facility] Leukocytes [#/volume ] in Blood [facility] Leukocytes [#/volume ] in Blood [facility] Leukocytes [#/volume ] in Blood [facility] Magnesium [Mass/volu me] in Serum or Plasma MAGNESIUM Lab Routine Stage 3b chronic kidney disease Ordered: 02/28/2025 [employer] Comment on above: Ordered: 02/28/2025 Mean corpuscular hemoglobin concentration determination [facility] Mean corpuscular hemoglobin concentration determination [facility] Mean corpuscular hemoglobin concentration determination [facility] Mean corpuscular hemoglobin determination [facility] Mean corpuscular hemoglobin determination [facility] Mean corpuscular hemoglobin determination [facility] Measurement of renal function [facility] Measurement of renal function [facility] Measurement of renal function [facility] MICROALBUMIN/CREATIN INE RATIO MICROALBUMIN/CREATININE RATIO Fluids Routine Stage 3b chronic kidney disease Ordered: 02/28/2025 [employer] [facility] [employer] Comment on above: Ordered: 02/28/2025 Microbial culture, routine Wound Culture [facility] Work Phone: Microscopic observat ion [Identifier] in Unspecified specimen by Gram stain Gram Stain [facility] Work Phone: Neutrophil count [facility] Neutrophil count [facility] Neutrophil count [facility] Neutrophil percent differential count [facility] Neutrophil percent differential count [facility] Neutrophil percent differential count [facility] Patient Education [facility] [employer] Work Phone: Patient referral [facility] Work Phone: Platelets [#/volume] in Blood [facility] Platelets [#/volume] in Blood [facility] Platelets [#/volume] in Blood [facility] Potassium measurement [facility] Potassium measurement [facility] Potassium measurement [facility] PTH INTACT PTH INTACT Lab R outine Stage 3b chronic kidney disease Ordered: 02/28/2025 [facility] [employer] Comment on above: Ordered: 02/28/2025 Red blood cell count [facility] Red blood cell count [facility] Red blood cell count [facility] Red cell distributio n width determination [facility] Red cell distributio n width determination [facility] Red cell distributio n width determination [facility] RENAL FUNCTION PANEL RENAL FUNCT ION PANEL Lab Routine Stage 3b chronic kidney disease Ordered: 02/28/2025 [facility] [place] [facility] 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 Other 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 (current) drug therapy Eczema, unspecified type Cervical disc disorder Cervical disc disorder, unspecified, unspecified cervical region Osteoarthritis of both knees, unspecified osteoarthritis type Primary osteoarthritis of both knees Psoriasis prison 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 Encounter for long-term (current) use of non-steroidal anti-inflammatories 6 Occurrences starting 10/08/2019 until 10/08/2020, 1 completed [employer] Comment on above: 6 Occurrences starting 10/08/2019 until 10/08/2020, 1 completed End: 09-22-2021 SEDIMENTATION RATE, AUTOMATED SEDIMENTATION RATE, AUTOMATED Lab Routine Psoriatic arthritis mutilans Psoriatic arthritis Psoriasis Eczema, unspecified type Personal history of other malignant neoplasm of skin Other halfway (current) drug therapy 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, 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, 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 Long-term current use of high risk medication other than anticoagulant History of malignant neoplasm of skin Encounter for long-term (current) use of non-steroidal anti-inflammatories Primary osteoarthritis of both knees Osteoarthritis of both knees, unspecified osteoarthritis type Cervical disc disorder, unspecified, unspecified cervical region Cervical disc disorder Pustulosis palmaris et plantaris 6 Occurrences starting 11/04/2020 until 09/22/2021 [employer] Comment on above: 6 Occurrences starting 11/04/2020 until 09/22/2021 End: 05-19-2023 SEDIMENTATION RATE, AUTOMATED SEDIMENTATION RATE, AUTOMATED Lab Routine Psoriatic arthritis Psoriatic arthritis mutilans Unspecified open wound, unspecified foot, initial encounter 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 Photoaged skin CRP elevated History of malignant neoplasm of skin History of osteomyelitis prison (current) use of antibiotics Long-term current use of high risk medication other than anticoagulant 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, 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, 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 On statin therapy Other halfway (current) drug therapy Personal history of other malignant neoplasm of skin Cervical disc disorder Cervical disc disorder, unspecified, unspecified cervical region Primary osteoarthritis of both knees Seborrheic eczema Eczema, unspecified type Encounter for long-term (current) use of non-steroidal anti-inflammatories prison 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 Osteoarthritis of both knees, unspecified osteoarthritis type Every 8 Weeks for 6 Occurrences starting 05/19/2022 until 05/19/2023 [employer] Comment on above: Every 8 Weeks for [...] other than anticoagulant On statin therapy Other 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 (current) drug therapy Cervical disc disorder Cervical disc disorder, unspecified, unspecified cervical region Primary osteoarthritis of both knees Every 12 Weeks for 4 Occurrences starting 09/20/2022 until 09/20/2023 [facility] Comment on above: Every 12 Weeks [...] high risk medication other than anticoagulant 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, halfway, current use On statin therapy Other halfway (current) drug therapy Cervical disc disorder Cervical disc disorder, unspecified, unspecified cervical region Primary osteoarthritis of both knees Infliximab (Remicade) long-term use Every 12 Weeks for 4 Occurrences starting 07/04/2023 until 07/04/2024 [facility] Comment on above: Every 12 Weeks [...] of other malignant neoplasm of skin Other halfway (current) drug therapy On statin therapy Nocturia 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, 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, 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 Long-term current use of high risk medication other than anticoagulant History of osteomyelitis History of malignant neoplasm of skin Encounter for long-term (current) use of non-steroidal anti-inflammatories Every 12 Weeks for 4 Occurrences starting 10/26/2023 until 10/26/2024 [facility] Comment on above: Every 12 Weeks [...] other than anticoagulant On statin therapy Other halfway (current) drug therapy Personal history of other malignant neoplasm of skin Cervical disc disorder Cervical disc disorder, unspecified, unspecified cervical region Primary osteoarthritis of both knees 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, halfway, current use Seborrheic eczema Eczema, unspecified type 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 Osteoarthritis of both knees, unspecified osteoarthritis type Every 12 Weeks for 4 Occurrences starting 05/07/2024 until 05/07/2025 [employer] Comment on above: Every 12 Weeks for [...] Asteatosis cutis Actinic keratosis Other proteinuria Other halfway (current) drug therapy On statin therapy 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, 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, 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 Nocturia Long-term current use of high risk medication other than anticoagulant prison use of drug Infliximab (Remicade) long-term use History of osteomyelitis History of malignant neoplasm of skin Difficulty in urination Current use of 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 anticoagulation Abnormal renal function test 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 Occurrences starting 01/25/2025 until 01/25/2026 [facility] Comment on above: Every 12 Weeks for 4 Occurrences startin g 01/25/2025 until 01/25/2026 Serum chloride measurement [facility] Serum chloride measurement [facility] Serum chloride measurement [facility] Sodium [Moles/volume ] in Urine SODIUM, RANDOM URINE Fluids Routine Stage 3b chronic kidney disease Ordered: 02/28/2025 [facility] Comment on above: Ordered: 02/28/2025 Sodium measurement [facility] Sodium measurement [facility] Sodium measurement [facility] Tissue exam Tissue exam Path ology and Cytology Timed Neoplasm of uncertain behavior of skin Release Upon Ordering for 1 Occurrences starting 07/11/2024 [facility] [employer] Work Phone: Comment on above: Release Upon Ordering for 1 Occurrences starting 07/11/2024 End: 05-19-2023 Urate [Mass/volume] in Serum or Plasma URIC ACID Lab Routine Psoriatic arthritis Psoriatic arthritis mutilans Unspecified open wound, unspecified foot, initial encounter 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 Photoaged skin CRP elevated History of malignant neoplasm of skin History of osteomyelitis prison (current) use of antibiotics Long-term current use of high risk medication other than anticoagulant 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, halfway, current use On statin therapy Other halfway (current) drug therapy Personal history of other malignant neoplasm of skin Cervical disc disorder Cervical disc disorder, unspecified, unspecified cervical region Primary osteoarthritis of both knees Seborrheic eczema Eczema, unspecified type Encounter for long-term (current) use of non-steroidal anti-inflammatories 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 Osteoarthritis of both knees, unspecified osteoarthritis type Every 8 Weeks for 6 Occurrences starting 05/19/2022 until 05/19/2023 [facility] Comment on above: Every 8 Weeks for 6 Occurrences starting 05/19/2022 until 05/19/2023 Urate [Mass/volume] in Serum or Plasma URIC ACID Lab Routine Stage 3b chronic kidney disease Ordered: 02/28/2025 [facility] Comment on above: Ordered: 02/28/2025 Urea nitrogen [Mass/volume] in Serum or Plasma [facility] Urea nitrogen [Mass/volume] in Serum or Plasma [facility] Urea nitrogen [Mass/volume] in Serum or Plasma [facility] Urinalysis dipstick W Reflex Microscopic panel - Urine URINE MICROSCOPIC Fluids Routine Stage 3b chronic kidney disease Ordered: 02/28/2025 [facility] Comment on above: Ordered: 02/28/2025 Urinalysis, reagent strip without microscopy URINALYSIS, MACRO Fluids Routine Stage 3b chronic kidney disease Ordered: 02/28/2025 [facility] Comment on above: Ordered: 02/28/2025 URINE PROTEIN/CREA RATIO, RANDOM URINE PROTEIN/CREA RATIO, RANDOM Fluids Routine Stage 3b chronic kidney disease Ordered: 02/28/2025 [facility] Comment on above: Ordered: 02/28/2025 End: 05-22-2025 US Kidney [facility] Comment on above: 1 Occurrences starting 05/22/2025 until 05/22/2025 Vancomycin [Mass/vol ume] in Serum or Plasma --trough [facility] VITAMIN D (25-HYDROXY,TOTAL) VITAMIN D (25-HYDROXY,TOTAL) Lab Routine Stage 3b chronic kidney disease Ordered: 02/28/2025 [facility] Comment on above: Ordered: 02/28/2025 Wound Culture Wound Culture [facility] Work Phone: Immunizations Immunization Date Immunization Notes Care Provider [facility] 09-11-2024 influenza virus vaccine, unspecified formulation Christina Cartagena MD Work Phone: [facility] 09-02-2023 influenza virus vaccine, unspecified formulation Georgina Moore MD Work Phone: [facility] 09-02-2022 influenza, injectabl e, quadrivalent, preservative free [facility] 09-02-2022 influenza, seasonal, injectable Dr. Zach Turner Work Phone: [facility] 09-02-2022 influenza virus vaccine, unspecified formulation Coco Shah Jr., DO Work Phone: [facility] 09-17-2021 influenza virus vaccine, unspecified formulation Coco Shah Jr., DO Work Phone: [facility] Payers Date Payer Category Payer Self-pay [id number] 2008 Commercial Managed C are - HMO [facility] [id number] 2008 Unknown [id number] 2008 Medicare MEDICARE MEDICAR E A AND B xxxxxxxxxxx 2008-Present [place] xxxxxxxxxxx [id number] .7.3.277111.315 2008 Medicare MEDICARE MEDICAR E A AND B [id number] 2008-Present [place] [id number] 1.2.840.945149.1.13.172.2 .7.3.877882.315 2008 Medicare [id number]. 1.13.172.2 .7.3.301087.315 2008 Medicare [id number] 2007 Managed Care (unspecified) 1.2.840.376837.1.13.172.2 .7.9.285189.15765.315 2007 Unknown GENERIC EXCHANGE GENERIC EXCHANGE [id number] 2007-Present [id number] 1.2.840.083250.1.13.172.2 .7.3.391479.315 2007 Unknown GENERIC EXCHANGE GENERIC EXCHANGE [id number] 2007-Present [id number] 1.2.840.022870.1.13.172.2 .7.3.014248.315 2007 Unknown 1.2.840.721692. 1.13.172.2 .7.3.508486.315 2007 Unknown [id number] 1945 Unknown [id number] 2.16.840.1.462136.3.579.2 .651 1945 Unknown [id number] 2.16.840.1.186683.3.579.2 .651 1945 Unknown [id number] 2.16.840.1.896181.3.579.2 .983 1945 Unknown [id number] 2.16.840.1.058713.3.579.2 .983 1945 Unknown [id number] 2.16.840.1.639280.3.579.2 .983 1945 Unknown [id number] 2.16.840.1.420677.3.579.2 .983 1945 Unknown [id number] 2.16.840.1.162048.3.579.2 .983 1945 Unknown [id number] 2.16.840.1.293637.3.579.2 .983 1945 Unknown [id number] 2.16.840.1.103612.3.579.2 .983 1945 Unknown [id number] 2.16.840.1.034652.3.579.2 .983 Self-pay SELF PAY BY [employer] REQUEST [id number] Unknown [id number] 2.16.840.1.270617.3.579.2 .462 Unknown [id number] 2.16.840.1.038971.3.579.2 .462 Unknown [id number] 2.16.840.1.040558.3.579.2 .462 Unknown [id number] 2.16.840.1.543186.3.579.2 .462 Unknown [id number] 2.16840.1.314108.3.579.2 .462 Unknown [id number] 2.16840.1.211794.3.579.2 .462 Unknown [id number] 2.840.1.761081.3.579.2 .462 Unknown [id number] 2.840.1.740214.3.579.2 .462 Unknown [id number] 2.840.1.240986.3.579.2 .462 Unknown [id number] 2.840.1.758961.3.579.2 .462 Unknown [id number] 2.840.1.332548.3.579.2 .462 Unknown [id number] 2.840.1.545556.3.579.2 .462 Unknown [id number] 2.840.1.668807.3.579.2 .462 Unknown [id number] 2.840.1.113048.3.579.2 .462 Unknown [id number] 2.840.1.941456.3.579.2 .462 Unknown [id number] 2.840.1.062558.3.579.2 .462 Unknown [id number] 2.840.1.663026.3.579.2 .462 Unknown [id number] 2.840.1.877139.3.579.2 .462 Unknown [id number] 2.840.1.049072.3.579.2 .462 Unknown [id number] 2.16840.1.669073.3.579.2 .462 Unknown [id number] 2.840.1.141992.3.579.2 .462 Unknown [id number] 2.16.840.1.085782.3.579.2 .462 Unknown [id number] 2.16.840.1.301148.3.579.2 .462 Unknown [id number] 2.16.840.1.283837.3.579.2 .462 Unknown [id number] 2.16.840.1.559249.3.579.2 .462 Unknown [id number] 2.16.840.1.298498.3.579.2 .462 Unknown [id number] 2.16.840.1.234453.3.579.2 .462 Unknown [id number] 2.16.840.1.552555.3.579.2 .462 Unknown [id number] 2.16.840.1.259194.3.579.2 .462 Unknown [id number] 2.16840.1.635309.3.579.2 .462 Unknown [id number] 2.16840.1.612473.3.579.2 .462 Unknown [id number] 2.16840.1.739214.3.579.2 .462 Social History Date Type Detail Facility Start: 09-25-2018 End: 06-21-2025 Tobacco smoking status NHIS Former smoker [facility] Start: 1945 Sex Assigned At Not on file [facility] Work Phone: Start: 10-08-2019 End: 05-30-2025 Alcohol intake Current non-drinker of alcohol (finding) [facility] [employer] Start: 09-22-2020 End: 09-20-2022 Tobacco use and exposure Never used [facility] Start: 02-03-2022 End: 02-25-2023 Tobacco smoking status UTIS Unknown if ever smoked [facility] Start: 03-04-2021 None [facility] Start: 02-25-2021 Spouse/ Signif icant Other [facility] Start: 03-04-2021 Non-smoker [facility] Start: 1945 Sex Assigned At Male W [facility] History of tobacco use Current smoker [facility] Start: 09-20-2022 End: 05-30-2025 History of Social function [facility] Start: 09-20-2022 End: 05-30-2025 Tobacco use panel [facility] Gender identity Identifies as ma le gender (finding) [facility] Start: 02-16-2017 End: 05-24-2024 Sex Male (finding) [facility] Medical Equipment Procedure Code Equipment Code Equipment Origin al Text Equipment Identifier Dates TEST BLOOD SUGAR TWICE DAILY Start: 05-28-2024 Goals Date Patient Goal Desired Activity /State Functional Status Date Assessment Result Facility 04-17-2025 Functional status Standby Assist ;With Assist of 1 [facility] Work Phone: 02-27-2023 Functional status Ambulates [facility] Work Phone: 09-25-2018 Are you deaf, or do you have serious difficulty hearing No 09/25/2018 11:12 AM Yasmin Ortiz LPN [facility] 09-25-2018 Are you blind, or do you have serious difficulty seeing, even when wearing glasses No 09/25/2018 11:12 AM Yasmin Ortiz LPN [facility] 09-25-2018 Do you have serious difficulty walking or climbing stairs No 09/25/2018 11:12 AM Yasmin Ortiz LPN [facility] 09-25-2018 Do you have difficul ty dressing or bathing No 09/25/2018 11:12 AM Yasmin Ortiz LPN [facility] 09-25-2018 Because of a physica l, mental, or emotional condition, do you have difficulty doing errands alone such as visiting a physician's office or shopping No 09/25/2018 11:12 AM Yasmin Ortiz LPN [facility] Mental Status Date Assessment Result Facility 06-07-2025 Cognitive function Awake;Alert;A ppropriate;Fol lows Commands [facility] Work Phone: 04-17-2025 Cognitive function Appropriate;Cooperativ e [facility] Work Phone: 04-16-2025 Cognitive function Arousable To Voice/Nam e [facility] Work Phone: 04-04-2025 Cognitive function Awake;Alert;A ppropriate;Fol lows Commands [facility] Work Phone: 02-21-2025 Cognitive function Awake;Alert;A ppropriate;Fol lows Commands [facility] Work Phone: 12-25-2024 Cognitive function Voice/Name [facility] Work Phone: 11-09-2024 Cognitive function Awake;Alert;A ppropriate;Fol lows Commands [facility] Work Phone: 02-24-2024 Cognitive function Voice/Name [facility] Work Phone: 01-13-2024 Cognitive function Awake;Alert;A ppropriate;Fol lows Commands [facility] Work Phone: 11-11-2023 Cognitive function Voice/Name [facility] Work Phone: 09-30-2023 Cognitive function Awake;Alert;A ppropriate;Fol lows Commands [facility] Work Phone: 08-19-2023 Cognitive function Awake;Alert;A ppropriate;Fol lows Commands [facility] Work Phone: 07-08-2023 Cognitive function Awake;Alert;A ppropriate;Fol lows Commands [facility] Work Phone: 05-27-2023 Cognitive function Awake;Alert;A ppropriate;Fol lows Commands [facility] Work Phone: 03-25-2023 Cognitive function Voice/Name [facility] Work Phone: 02-27-2023 Cognitive function Voice/Name [facility] Work Phone: 02-25-2023 Cognitive function Level Of Cons ciousness Awake;Alert;Appropriate [facility] Work Phone: 02-11-2023 Cognitive function Voice/Name [facility] Work Phone: 12-31-2022 Cognitive function Level Of Cons ciousness Awake [facility] Work Phone: 10-08-2022 Cognitive function Voice/Name [facility] Work Phone: 08-27-2022 Cognitive function Level Of Cons ciousness Awake;Alert;Appropriate;Fol lows Commands [facility] Work Phone: 07-16-2022 Cognitive function Voice/Name [facility] Work Phone: 06-04-2022 Cognitive function Level Of Cons ciousness Awake;Alert;Appropriate;Fol lows Commands [facility] Work Phone: 04-09-2022 Cognitive function Level Of Cons ciousness Awake;Alert [facility] Work Phone: 02-12-2022 Cognitive function Awake;Alert;A ppropriate;Fol lows Commands [facility] Work Phone: 12-15-2021 Cognitive function Level Of Cons ciousness Awake;Alert;Appropriate;Fol lows Commands [facility] Work Phone: 10-20-2021 Cognitive function Voice/Name [facility] Work Phone: 09-25-2018 Because of a physica l, mental, or emotional condition, do you have serious difficulty concentrating, remembering, or making decisions No 09/25/2018 11:12 AM Yasmin Ortiz LPN [facility] Clinical Notes 03-23-2021 to 06-21-2025 Note Date & Type Note Facility 06-21-2025 Discharge summary [facility] 06-21-2025 Radiology Diagnostic study note [facility] Imaging Services [address] [place] [address] Abdomen/Pelvis W IV Cont ONLY MR#: [id number] Acct: [id number] Name: YESSI HATCH Rep #: [id number] : 1945 M 79 From: Umair Patterson MD PCP: Dr. Zach Turner MD Status: REG ER Study:Abdomen/Pelvis W IV Cont ONLY Date of E xam: 06/21/25 Exam# [id number] Ordering Dr: Edgar Durham DO PROCEDURE: ABDOMEN/PELVIS [...] abdomen or pelvis as imaged. Reading Location: [facility] CC: Dr. Edgar Gudino DO; Dr. Zach Turner MD ~ Wood Die Maker: Signed [facility] 06-21-2025 Discharge summary Note Date/Time June 21, 2025 7:55pm [facility] Medical Records Department [address] [place] [address] Emergency Department Summary 06/21/25 MR#: [id number] Acct: [id number] Name: YESSI HATCH Rep #:[id number] : 1945 79 From: Edgar guillaume DO [...] his last colonoscopy was years ago in [place] that was unremarkable. Review of systems: See [...] intact Psych: Cooperative, appropriate mood and affect [facility] Medical History Kidney disease GERD (gastroesophageal reflux [...] Held on 06/21/25. Instructions: MD Ordered vitamins A,C,D-xbzd-dowtto 4,296 1 cap PO QDAY 03/08/2 5 [...] state that he is currently seeing a production utility worker due to his CKD. They state his [...] 84.3 H Lymph % (Auto) 8.8 L Kaufman % (Auto) 5.6 Eos % (Auto) 0.7 [...] Clarity Clear Urine pH 5.0 Ur Specific [place] 1.020 Urine Protein 30 H Urine Glucose [...] abdomen or pelvis as imaged. Reading Location: [facility] Discharge Plan Triage Chief Complaint: GI Bleed ED Provider: Edgar Gudino Dx/Rx/DC Orders Prescriptions: No Action Inflectra 100 mg recon soln 100 mg IV UD Patient Comments: IV Rx Instructions: 8 MG/KG, n6splmn glucosamine HCl 1,500 mg tablet 1,500 mg [...] MD [Primary Care Provider] - Print Language: Anguillan What to do if you have Problems For any increased pain, shortness of breath, bleeding, nausea or vomiting, chestpain, or any unexpected problems, contact your Primary Care Provider. Call [facility] ([phone]) or report to the closest Emergency Room. Call 911 if necessary. 06/21/251954 <Electronically signed by Edgar Gudino DO> Cosigner Signature (if applicable): CC: Dr. Zach Turner MD ~ Signed [facility] Work Phone: 1(495) 835-675007-30-2025 History of Present illness Narrative* Georgina Moore MD - 06/12/2025 11:15 AM EDT Images from the original note were not included. DATE OF SERVICE: 06/12/2025 PATIENT NAME: Yessi Hatch : 1945 AGE: 79 y.o. CLINIC NUMBER: [id number] Visit type: Established patient Chief Complaint Patient presents with Skin Lesion EVAN-10/31/2024,ZB Subjective HISTORY OF PRESENT ILLNESS: This is a 79 y.o. male who presents for evaluation of skin lesion; lastseen 10/31/2024. Patient states he is on inflectra infusion for psoriatic arthritis. Pt h/o numerous BCC and SCC. F/u- actinic keratoses located on the Left Forehead, Left Parotid Area, Left Tenriism, Left Temporal Scalp, Left Zygomatic Area, Right Forehead, Right Parotid Area, Right Tenriism, Right Temporal Scalp, Right Zygomatic Area At [...] Systems Orders Placed This Encounter Medications fluocinolone (Clarcona-Smoothe) 0.01 % external oil Sig: Apply to [...] 7:49 AM REFERRING MD: documented in this [facility]07-17-2025 History of Present illness Narrative* Christina Cartagena MD - 05/30/2025 11:30 AM EDT DAILY PROGRESS NOTE Admit Date: (Not on file) Date of Evaluation: 1:56 AM [facility] @RRHLOS@ IMPRESSION AND PLAN: 79 [...] Appearance, Urine 05/22/2025 CLEAR CLEAR Final Specific [place], Urine 05/22/2025 1.015 1.010 - 1.025 Final [...] LABS Labs-ABGs @ABGROUNDS@ Labs-CBC @CBCBRIEFROUNDS@ Labs-Chem 7(PMC) @[facility]@ Labs-Coags WBC (WHITE BLOOD COUNT) [...] Skin: Warm and dry [facility] NotePROCEDURE: US RENAL RETROPERITONEAL HISTORY: Chronic [...] hydronephrosis or shadowing calculus. 2. Left renal cyst.[facility]06-04-2025 Consult note Author Patrick Rojas [facility] Note Date/Time April 17, 2025 12:53 pm [facility] Medical Records Department [address] [place] [address] Consultation 04/16/25 1225 MR#: [id number] Acct: [id number] Name: YESSI HATCH Rep #:[id number] : 1945 79 From: Patrick Rojas DPM PCP: Dr. Zach Turner MD Status:ADM IN Location: MS3 [id number] Assessment & Plan Assessment/Plan (1) Cellulitis of [...] as chronic diarrhea. The patient presented to [facility] emergency department secondary to swollen toe which did not seem to get better. [facility] Medical History Kidney disease GERD (gastroesophageal reflux [...] 12.5 mg PO QDAY 04/15/25 History vitamins A,C,V-mwck-zfonub 4,296 1 cap PO QDAY 5 04/15/25 [...] % (Auto) 59.2, Lymph % (Auto) 21.9, Kaufman % (Auto) 12.1 H, Eos % (Auto) [...] % (Auto) 52.4, Lymph % (Auto) 28.7, Kaufman % (Auto) 12.2 H, Eos % (Auto) [...] of the 4th proximal phalanx. Reading Location: [id number] 04/17/25 1253 <Electronically signed by Patrick Rojas DPM> Cosigner Signature (if applicable): CC: Dr. Zach Turner MD~ Signed [facility] Work Phone: 1(538) 433-795006-04-2025 Progress note Author Patrick Rojas [facility] Note Date/Time April 17, 2025 12:53 pm [facility] Medical Records Department [address] [place] [address] Progress Note 04/17/25 1245 MR#: [id number] Acct: [id number] Name: YESSI HATCH Rep #:[id number] : 1945 79 From: Patrick Rojas DPM PCP: Dr. Zach Turner MD Status:ADM IN [place] [facility] [place] Subjective Subjective Patient was resting comfortably in [...] 70.3 H, Lymph % (Auto) 15.0 L, Kaufman % (Auto) 8.9, Eos % (Auto) 4.8, [...] Cosigner Signature (if applicable): CC: ~ Signed [facility] Work Phone: 1(111) 735-877106-04-2025 Discharge summary [facility] Medical Records Department [address] [place] [address] Discharge Summary 04/17/25 1340 MR#: [id number] Acct: [id number] Name: YESSI HATCH Rep #:[id number] : 1945 79 From: Coco Pepe MD PCP: Dr. Zach Turner MD Status:ADM IN [facility] Prov[facility] Date of Admission: 04/15/25 Date of Discharge: 04/17/25 Primary Care Physician: Dr. Zach Turner MD Consultations 04/15/25 18:28 Consult: Infectious Disease Routine Consulting Provider: Latonia Berry Reason for Consult: DFU EMERGENT Consult: No Notified: Yes Date Notified: 04/16/25 Time Notified: 06:37 Method of Notification: Text Consult: Onc/Wound/wire weaver Routine Comment: Reason for Consult:: skin tear [...] mg PO DAILY PRN edema 03/08/25 vitamins A,C,H-skfi-nmvvrh 4,296 mcg-226 mg-90 mg capsule (PreserVision AREDS) [...] 70.3 H, Lymph % (Auto) 15.0 L, Kaufman % (Auto) 8.9, Eos % (Auto) 4.8, [...] Patient Comments: IV Rx Instructions: 8 MG/KG, j9rdqlj glucosamine HCl 1,500 mg tablet 1,500 mg [...] Health Service Charges/Coding Visit Charges Inpatient E&M: 23991 Disch Hosp >30min 04/17/25 1352 Cosigner Signature (if applicable): CC: Dr. Coco Pepe MD; Dr. Zach Turner MD~ Signed [facility]06-04-20[facility] Consult note [facility] Medical Records Department [address] [place] [address] Consultation 04/16/25 1225 MR#: [id number] Acct: [id number] Name: YESSI HATCH Rep #:[id number] : 1945 79 From: Patrick Rojas DPElvia PCP: Dr. Zach Turner MD Status:ADM IN [place] [facility] [place]534-1 Assessment & Plan Assessment/Plan (1) Cellulitis of [...] Consultation: Ulceration of toe HPI Narrative: YESSI HTACH, is a 79 M who presents complaining [...] well as chronic diarrhea. The patient presented [facility] emergency department secondary to swollen toe which did not seem to get better. [facility] Medical History Kidney disease GERD (gastroesophageal reflux [...] 12.5 mg PO QDAY 04/15/25 History vitamins A,C,E-spwo-ulcepa 4,296 1 cap PO QDAY 5 04/15/25 [...] % (Auto) 59.2, Lymph % (Auto) 21.9, Kaufman % (Auto) 12.1 H, Eos % (Auto) [...] % (Auto) 52.4, Lymph % (Auto) 28.7, Kaufman % (Auto) 12.2 H, Eos % (Auto) [...] of the 4th proximal phalanx. Reading Location: [id number] 04/17/25 1253 Cosigner Signature (if applicable): CC: Dr. Zach Turner MD~ Signed [facility]06-04-2025 Progress note [facility] Medical Records Department [address] [place] [address] Progress Note 04/17/25 1245 MR#: [id number] Acct: [id number] Name: YESSI HATCH Rep #:[id number] : 1945 79 From: Patrick Rojas DPM PCP: Dr. Zach Turner MD Status:ADM IN Location: MS3 WC119-6 Subjective Subjective Patient was resting comfortably in [...] 70.3 H, Lymph % (Auto) 15.0 L, Kaufman % (Auto) 8.9, Eos % (Auto) 4.8, [...] Cosigner Signature (if applicable): CC: ~ Signed [facility]06-04-2025 Progress note Author Coco Pepe [facility] Note Date/Time April 17, 2025 8:55a m [facility] Medical Records Department [address] [place] [address] Progress Note - Hospitalist 04/17/25 0714 MR#: [id number] Acct: [id number] Name: YESSI HATCH Rep #:[id number] : 1945 79 From: Coco Pepe MD PCP: Dr. Zach Turner MD Status:ADM IN Location: [place]3 EQ071-6 Reason for Visit Reason for Visit: Diagnoses [...] 70.3 H, Lymph % (Auto) 15.0 L, Kaufman % (Auto) 8.9, Eos % (Auto) 4.8, [...] additional measures Charges/Coding Visit Charges Inpatient E&M: 38576 Subs Hosp L2 04/17/25 0855 <Electronically signed by Coco Pepe MD> Cosigner Signature (if applicable): CC: ~ Signed [facility] Work Phone: 1(645) 558-626206-04-2025 Consult note Author Judith Mar [facility] Note Date/Time April 17, 2025 8:39a m [facility] Medical Records Department [address] [place] [address] Pharmacokinetic/Renal -Consult 04/17/25 0837 MR#: [id number] Acct: [id number] Name: YESSI HATCH Rep #:[id number] : 1945 79 From: Judith Ivory PCP: Dr. Zach Turner MD Status:ADM IN [place] [facility] [place]310-7 Consult Antibiotic Management Pharmacy has been consulted [...] Signature (if applicable): Date CC: ~ Signed [facility] Work Phone: 1(253) 413-238706-04-2025 Progress note [facility] Medical Records Department [address] [place] [address] Progress Note - Hospitalist 04/17/25 0714 MR#: [id number] Acct: [id number] Name: YSESI HATCH Rep #:[id number] : 1945 79 From: Coco Pepe MD PCP: Dr. Zach Turner MD Status:ADM IN Location: [place] [address] Reason for Visit Reason for Visit: Diagnoses [...] 70.3 H, Lymph % (Auto) 15.0 L, Kaufman % (Auto) 8.9, Eos % (Auto) 4.8, [...] additional measures Charges/Coding Visit Charges Inpatient E&M: 73344 Subs Hosp L2 04/17/25 0855 Cosigner Signature (if applicable): CC: ~ Signed [facility]06-04-2025 Consult note [facility] Medical Records Department [address] [place] [address] Pharmacokinetic/Renal -Consult 04/17/25 0837 MR#: [id number] Acct: [id number] Name: YESSI HATCH Rep #:[id number] : 1945 79 From: Judith Ivory PCP: Dr. Zach Turner MD Status:ADM IN Location: [place] [address] Consult Antibiotic Management Pharmacy has been consulted [...] Signature (if applicable): Date CC: ~ Signed [facility]06-03-2025 Consult note Author Latonia Berry [facility] Note Date/Time April 16, 2025 10:35 am [facility] Medical Records Department [address] [place] [address] Consultation - Infectious Dx 04/16/25 1032 MR#: [id number] Acct: [id number] Name: YESSI HTACH Rep #:[id number] : 1945 79 From: Latonia patel MD PCP: Dr. Zach Turner MD Status:ADM IN [facility] Assessment & Plan Assessment/Plan (1) Chronic kidney [...] performed and neg except as noted above. [facility] Medical History Kidney disease GERD (gastroesophageal reflux [...] 12.5 mg PO QDAY 04/15/25 History vitamins A,C,A-hgvv-eegwns 4,296 1 cap PO QDAY 03/08/ 5 [...] % (Auto) 59.2, Lymph % (Auto) 21.9, Kaufman % (Auto) 12.1 H, Eos % (Auto) [...] % (Auto) 52.4, Lymph % (Auto) 28.7, Kaufman % (Auto) 12.2 H, Eos % (Auto) [...] of the 4th proximal phalanx. Reading Location: [facility] 04/16/251034 <Electronically signed by Latonia Berry MD> Cosigner Signature (if applicable): CC: Dr. Zach Turner MD~ Signed [facility] Work Phone: 1(858) 466-449806-03-2025 [facility]06-03-2025 Consult note [facility] Medical Records Department [address] [place] [address] Consultation - Infectious Dx 04/16/25 1032 MR#: [id number] Acct: [id number] Name: YESSI HATCH Rep #:[id number] : 1945 79 From: Latonia patel MD PCP: Dr. Zach Turner MD Status:ADM IN [place] [facility] [place]M724-5 Assessment & Plan Assessment/Plan (1) Chronic kidney [...] performed and neg except as noted above. [facility] Medical History Kidney disease GERD (gastroesophageal reflux [...] 12.5 mg PO QDAY 04/15/25 History vitamins A,C,V-xtab-wnlozb 4,296 1 cap PO QDAY 5 04/15/25 [...] % (Auto) 59.2, Lymph % (Auto) 21.9, Kaufman % (Auto) 12.1 H, Eos % (Auto) [...] % (Auto) 52.4, Lymph % (Auto) 28.7, Kaufman % (Auto) 12.2 H, Eos % (Auto) [...] of the 4th proximal phalanx. Reading Location: [id number] 04/16/25 1035 Cosigner Signature (if applicable): CC: Dr. Zach Turner MD~ Signed [facility]06-03-2025 Progress note Author Coco Pepe [facility] Note Date/Time April 16, 2025 8:26a m [facility] Medical Records Department [address] [place] [address] Progress Note - Hospitalist 04/16/25 0728 MR#: [id number] Acct: [id number] Name: YESSI HATCH Rep #:[id number] : 1945 79 From: Coco Pepe MD PCP: Dr. Zach Turner MD Status:ADM IN Location: [address] Reason for Visit Reason for Visit: [...] % (Auto) 59.2, Lymph % (Auto) 21.9, Kaufman % (Auto) 12.1 H, Eos % (Auto) [...] % (Auto) 52.4, Lymph % (Auto) 28.7, Kaufman % (Auto) 12.2 H, Eos % (Auto) [...] of the 4th proximal phalanx. Reading Location: [facility] Physical Exam Narrative GENERAL: cooperative HEENT: Atraumatic; [...] additional measures Charges/Coding Visit Charges Inpatient E&M: 50124 Subs Hosp L2 04/16/25 0826 <Electronically signed by Coco Pepe MD> Cosigner Signature (if applicable): CC: ~ Signed [facility] Work Phone: [phone] Consult note Author Meena Rico [facility] Note Date/Time April 16, 2025 7:15a m [facility] Medical Records Department [address] [place] [address] Pharmacokinetic/Renal -Consult 04/15/251956 MR#: [id number] Acct: [id number] Name: LESLYYESSI TSE Rep #:[id number] : 1945 79 From: Meena Rico PCP: Dr. Zach Turner MD Status:ADM IN Y Location: [place]3 VN643-2 Consult Antibiotic Management Pharmacy has been consulted [...] Date Coco Pepe MD CC: ~ Signed [facility] Work Phone: 1(188) 858-620006-03-2025 Progress note [facility] Medical Records Department [address] [place] [address] Progress Note - Hospitalist 04/16/25 0728 MR#: [id number] Acct: [id number] Name: YESSI HATCH Rep #:[id number] : 1945 79 From: Coco Pepe MD PCP: Dr. Zach Turner MD Status:ADM IN Location: [place] [address] Reason for Visit Reason for Visit: Diagnoses [...] % (Auto) 59.2, Lymph % (Auto) 21.9, Kaufman % (Auto) 12.1 H, Eos % (Auto) [...] % (Auto) 52.4, Lymph % (Auto) 28.7, Kaufman % (Auto) 12.2 H, Eos % (Auto) [...] of the 4th proximal phalanx. Reading Location: [id number] Physical Exam Narrative GENERAL: cooperative HEENT: Atraumatic; [...] additional measures Charges/Coding Visit Charges Inpatient E&M: 24674 Subs Hosp L2 04/16/25 0826 Cosigner Signature (if applicable): CC: ~ Signed [facility]06-03-2025 Consult note [facility] Medical Records Department [address] [place] [address] Pharmacokinetic/Renal -Consult 04/15/251956 MR#: [id number] Acct: [id number] Name: YESSI HATCH Rep #:[id number] : 1945 79 From: Meena Rico PCP: Dr. Zach Turner MD Status:ADM IN Y [place] [facility] [place]W987-9 Consult Antibiotic Management Pharmacy has been consulted [...] Date Coco Pepe MD CC: ~ Signed [facility]06-03-2025 Discharge summary Author Edgar Gudino [facility] Note Date/Time April 16, 2025 1:44a m [facility] Medical Records Department [address] [place] [address] Emergency Department Summary 04/15/25 MR#: [id number] Acct: [id number] Name: YESSI HATCH Rep #:[id number] : 1945 79 From: Edgar Page ggett DO PCP: Dr. Zach Turner MD Status:ADM IN Location: [place] [address]-1 HPI History of Present Illness Chief Complaint: [...] intact Psych: Cooperative, appropriate mood and affect [facility] Medical History (Updated 04/15/25 @ 18:32 by [...] 12.5 mg PO QDAY 04/15/25 History vitamins A,C,C-lglk-exeozf 4,296 1 cap PO QDAY 5 04/15/25 [...] % (Auto) 59.2 Lymph % (Auto) 21.9 Kaufman % (Auto) 12.1 H Eos % (Auto) [...] of the 4th proximal phalanx. Reading Location: [facility] Discharge Plan Disposition Disposition: Acute Care Hospital [facility] Discharge Date/Time: 04/15/25 18:06 What to do if you have Problems For any increased pain, shortness of breath, bleeding, nausea or vomiting, chestpain, or any unexpected problems, contact your Primary Care Provider. Call [facility] ([phone]) or report to the closest Emergency Room. Call 911 if necessary. 04/16/25 0144 <Electronically signed by Edgar Gudino DO> Cosigner Signature (if applicable): CC: Dr. Zach Turner MD ~ Signed [facility] Work Phone: [phone] Discharge summary [facility] Medical Records Department [address] [place] [address] Emergency Department Summary 04/15/25 MR#: [id number] Acct: [id number] Name: YESSI HATCH Rep #:[id number] : 1945 79 From: Edgar guillaume DO PCP: Dr. Zach Turner MD Status:ADM IN [place] [facility] SA266-4 HPI History of Present Illness Chief Complaint: [...] intact Psych: Cooperative, appropriate mood and affect [facility] Medical History (Updated 04/15/25 @ 18:32 by [...] 12.5 mg PO QDAY 04/15/25 History vitamins A,C,H-egqh-glmrcg 4,296 1 cap PO QDAY 03/08/2 5 [...] % (Auto) 59.2 Lymph % (Auto) 21.9 Kaufman % (Auto) 12.1 H Eos % (Auto) [...] of the 4th proximal phalanx. Reading Location: [id number]-Y Discharge Plan Disposition Disposition: Acute Care Hospital [facility] Discharge Date/Time: 04/15/25 18:06 What to do if you have Problems For any increased pain, shortness of breath, bleeding, nausea or vomiting, chestpain, or any unexpected problems, contact your Primary Care Provider. Call [facility] ([phone]) or report tothe closest Emergency Room. Call 911 if necessary. 04/16/25 0144 Cosigner Signature (if applicable): CC: Dr. Zach Turner MD ~ Signed [facility]06-02-2025 History and physical note Author Coco Pepe [facility] Note Date/Time April 15, 2025 6:11p m [facility] Medical Records Department [address] [place] [address] H&P Exam - Hospitalist 04/15/25 1720 MR#: [id number] Acct: [id number] Name: YESSI HATCH Rep #:[id number] : 1945 79 From: Coco Pepe MD PCP: Dr. Zach Turner MD Status:ADM IN Location: [place]3 LC298-3 HPI - General General Date of Admission: [...] without much improvement. Patient did inform his market news reporter Dr. Patrick Rojas who advised patient to to present to the emergency department. Imaging studies obtained demonstrated degenerative changes throughout the right foot with soft tissue swelling involving multiple toes. Patient was started on broad- spectrum antibiotic therapy admitted to regular nursing floor for further management [facility] Medical History Hypertension, well controlled Amputation toe [...] 12.5 mg PO QDAY 04/15/25 History vitamins A,C,H-ovht-ybvmil 4,296 1 cap PO QDAY 5 04/15/25 [...] % (Auto) 59.2, Lymph % (Auto) 21.9, Kaufman % (Auto) 12.1 H, Eos % (Auto) [...] of the 4th proximal phalanx. Reading Location: [id number] Assessment & Plan Assessment/Plan (1) Diabetic foot [...] Multi Select Codes Visit Charges Visit Charges: 47142 Init Hosp L3 Hospitalists' Procedures Procedures: 26902 Advncd Care Plan 30 Min 04/15/25 1811 <Electronically signed by Coco Pepe MD> Cosigner Signature (if applicable): CC: Dr. Coco Pepe MD; Dr. Zach Turner MD~ Signed [facility] Work Phone: 1(262) 361-233306-02-2025 History and physical note [facility] Medical Records Department [address] [place] [address] H&P Exam - Hospitalist 04/15/25 1720 MR#: [id number] Acct: [id number] Name: YESSI HATCH Rep #:[id number] : 1945 79 From: Coco Pepe MD PCP: Dr. Zach Turner MD Status:ADM IN Location: [place]3 JE572-4 HPI - General General Date of Admission: [...] without much improvement. Patient did inform his market news reporter Dr. Patrick Rojas who advised patient to to present to the emergency department. Imaging studies obtained demonstrated degenerative changes throughout the right foot with soft tissue swelling involving multiple toes. Patient was started on broad-spectrum antibiotic therapy admitted to regular nursing floor for further management [facility] Medical History Hypertension, well controlled Amputation toe [...] 12.5 mg PO QDAY 04/15/25 History vitamins A,C,X-hjxp-yntucg 4,296 1 cap PO QDAY 5 04/15/25 [...] % (Auto) 59.2, Lymph % (Auto) 21.9, Kaufman % (Auto) 12.1 H, Eos % (Auto) [...] Multi Select Codes Visit Charges Visit Charges: 01223 Init Hosp L3 Hospitalists' Procedures Procedures: 16524 Advncd Care Plan 30 Min 04/15/25 1811 Cosigner Signature (if applicable): CC: Dr. Coco Pepe MD; Dr. Zach Turner MD~ Signed [facility]06-02-2025 Radiology Diagnostic study note [facility] Imaging Services [address] [place], [place] [address] Foot min 3 Views MR#: [id number] Acct: [id number] Name: YESSI HATCH Rep #: [id number] : 1945 M 79 From: Meka Cabrales MD PCP: Dr. Zach Turner MD Status: REG ER Study:Foot min 3 Views Date of Exam: 01/08 Exam# [id number] Ordering Dr: Edgar Durham DO PROCEDURE: FOOT [...] of the 4th proximal phalanx. Reading Location: [id number] CC: Dr. Edgar Gudino DO; Dr. Zach Turner MD ~ Wood Die Maker: Signed [facility]05-14-2025 Radiology Diagnostic study note [facility] Imaging Services [address] [place], [place] [address] Foot min 3 Views MR#: [id number] Acct: [id number] Name: YESSI HATCH Rep #: [id number] : 1945 M 79 From: Darling Lind MD PCP: Dr. Zach Turner MD Status: REG CLI Study:Foot min 3 Views Date of Exam: Exam# [id number] Ordering Dr: Torin Rojas DPM EXAM: XR [...] Osteomyelitis can not be excluded. Reading Location: LOQ-HC-TA-HOME CC: DPM Dr. Patrick Rojas; Dr. Zach Turner MD ~ Wood Die Maker: Signed [facility]04-25-2025 Evaluation note* Diagnosis Onset Date [...] of bone chronic April 15, 2025 5:21pm [facility] Work Phone: 1(578) 462-370204-17-2025 History and physical note* Christina Cartagena MD - 02/28/2025 10:30 AM EDT I saw Yessi Hatch in renal clinics at [facility] in [place] on 02/28/2025. Assessment/Plan: 79 y/o male with [...] 10/08/2019 CREATSERUM 1.2 09/25/2018 CREATSERUM 1.1 06/01/2017 [facility]04-17-2025 History and physical note* Christina Cartagena MD - 02/28/2025 10:30 AM EDT I saw Yessi Hatch in renal clinics at [facility] in [place] on 02/28/2025. Assessment/Plan: 79 y/o male with [...] 09/25/2018 CREATSERUM 1.1 06/01/2017 documented in this [facility]03-14-2025 History of Present illness Narrative* Coco [...] intact. Sensory: Sensation is intact. Motor: Decreased agency sales development associate strength both hands Psychiatric: Mood and Affect: [...] Asteatosis cutis Actinic keratosis Other proteinuria Other halfway (current) drug therapy On statin therapy 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, 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, current use Nocturia Long-term current use of high risk medication other than anticoagulant 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 use of drug Infliximab (Remicade) long-term use History of osteomyelitis History of malignant neoplasm of skin Difficulty in urination Current use of halfway anticoagulation Abnormal renal function test Psoriatic arthritis [...] Uric acid was normal at 5.9 15. HAM SMOKER was elevated at 1.42 with GFR of 51 and still is at 26/1.4 with GFR of 52 16. Derm F/U per Dr. Joe malloy 17. Stop Aleve 18. Optho F/U per Dr. Chan. 19. 90 day supply on medications 20. 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 side effects of prednisone gone over with [...] 6 hours for pain documented in this [facility]02-26-2025 Evaluation note* Diagnosis Onset Date Resolution Status Admit Date Raynauds phenomenon acute Febru 2024 9:21am [facility] Work Phone: 1(142) 417-580202-26-2025 Evaluation note* Diagnosis Onset Date Resolution Status Admit Date Raynauds phenomenon acute Febru 2024 9:21am Atrial fibrillation acute March 08, 2025 11:13am Chronic kidney disease chronic Ap ril 2024 11:13am Essential hypertension chronic Ap ril 2024 11:13am Hyperlipidemia chronic February 11:13am [facility] Work Phone: 1(215) [phone] Evaluation note* Diagnosis Onset Date Resolution Status [...] of bone chronic April 15, 2025 5:21pm [facility] Work Phone: 1([phone]) 204-866812-18-2024 History of Present illness Narrative* Georgina Moore MD - 10/31/2024 12:30 PM EST Images from the original note were not included. DATE OF SERVICE: 10/31/2024 PATIENT NAME: Yessi Hatch : 1945 AGE: 79 y.o. CLINIC NUMBER: [id number] Visit type: Established patient Chief Complaint Patient [...] or Adhesive? No. 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 Excessive sun exposure: Yes Used tanning [...] (10) Left Forehead, Left Parotid Area, Left Tenriism, Left Temporal Scalp, Left Zygomatic Area, Right Forehead, Right Parotid Area, Right Tenriism, Right Temporal Scalp, Right Zygomatic Area Widespread [...] on face, armpits, groin Risks associated with 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 topical steroid use reviewed in detail. Patient [...] 10:46 AM REFERRING MD: documented in this [facility]09-12-2024 Telephone encounter Note* Telephone Encounter - Courtney Shoemaker LPN - 07/26/2024 5:22 PM EDT Patient scheduled with DSC on 08/15/2024 at 1:15 pm. [id number] Miscellaneous Notes* Telephone Encounter - Courtney Shoemaker [...] ear treated by Moh's. documented in this [facility]09-09-2024 Telephone encounter Note* Telephone Encounter - Shala [...] phone number. Pt educated and verbalized understanding. [id number] Telephone encounter Note* Telephone Encounter - Shala Vallejo MA - 07/20/2024 9:03 AM EDT Called and LMOM for pt-Pt to return call. [id number] Telephone encounter Note* Telephone Encounter - Charu Wolfe RN - 07/19/2024 5:23 PM EDT Patient left voicemail on nurse line requesting a call back for his recent biopsy results. He states he has other questions as well. [id number] Telephone encounter Note* Telephone Encounter - Shala Vallejo MA - 07/18/2024 4:57 PM EDT Called and LMOM for pt-Pt to return call. [facility] [id number] Telephone encounter Note* Telephone Encounter - Georgina Moore MD - 07/17/2024 10:31 PM EDT Please refer the patient to a Moh's surgeon to have the lesion of his left ear treated by Moh's. [facility] [id number] History of Present illness Narrative* Georgina Moore MD - 07/11/2024 12:45 PM EDT Images from the original note were not included. DATE OF SERVICE: 07/11/2024 PATIENT NAME: Yessi Hatch : 1945 AGE: 79 y.o. 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 male who presents for evaluation of spots on the scalp, face, neck and L ear x over 1 year. Pt states the lesions are scaly and bleed at time. Pt admits to picking at the lesion on the ear. Pt h/o numerous BCC and SCC. He was seeing a Water Resource Engineer in [place] at [facility] but he retired a few years ago. [...] joint pain if better. He sees Dr. hSah in [place] twice a year. History of pacemaker/ defibrillator? No History of HIV/ Hep C? No Allergies to Lidocaine, Epinephrine, Latex or Adhesive? 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 Excessive sun exposure: Yes Used tanning [...] of uncertain behavior of skin Left [place] 1.5cm hemorrhagic nodule Skin Biopsy Type of [...] 7:08 AM REFERRING MD: documented in this [facility]08-28-2024 History of Present illness Narrative* Georgina Moore MD - 07/11/2024 12:45 PM EDT Images from the original note were not included. DATE OF SERVICE: 07/11/2024 PATIENT NAME: Yessi Hatch : 1945 AGE: 79 y.o. CLINIC NUMBER: [id number] Visit type: New Chief Complaint Patient presents with Skin Lesion MEDICAL APPLIANCE MAKER (LMS) Subjective HISTORY OF PRESENT ILLNESS: This is a 79 y.o. male who presents for evaluation of spots on the scalp, face, neck and L ear x over 1 year. Pt states the lesions are scaly and bleed at time. Pt admits to picking at the lesion on the ear. Pt h/o numerous BCC and SCC. He was seeing a Water Resource Engineer in [place] at [facility] but he retired a few years ago. [...] if better. He sees Dr. Shah in [place] twice a year. History of pacemaker/ defibrillator? No History of HIV/ Hep C? No Allergies to Lidocaine, Epinephrine, Latex or Adhesive? 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 Excessive sun exposure: Yes Used tanning [...] of uncertain behavior of skin Left [place] 1.5cm hemorrhagic nodule Skin Biopsy Type of [...] 7:08 AM REFERRING MD: documented in this [facility]08-28-2024 Instructions* Patient Instructions* Shala Vallejo MA - 07/11/2024 12:45 PM EDT [facility] 101 Rx: Efudex (fluorouracil) Cream Apply a [...] does not stop, call our office at [phone]. 6. The wound should improve daily. If [...] in about 2 weeks. documented in this [facility]08-28-2024 Instructions* Patient Instructions* Shala Vallejo MA - 07/11/2024 12:45 PM EDT [facility] [address] [place] [address] 101 Rx: Efudex (fluorouracil) Cream Apply a [...] does not stop, call our office at [phone]. 6. The wound should improve daily. If [...] in about 2 weeks. documented in this [facility]08-28-2024 Miscellaneous Notes* Addendum Note - Ernestine Grullon - 07/11/2024 12:45 PM EDTAddended by: ERNESTINE GRULLON on: 08/28/2024 08:46 AM Modules accepted: Orders documented in this [place] [address]77-28-2024 Note* Addendum Note - Ernestine Grullon - 07/11/2024 12:45 PM EDTAddended by: ERNESTINE GRULLON on: 08/28/2024 08:46 AM Modules accepted: [id number] NoteAddended by: ERNESTINE GRULLON on: 08/28/2024 08:46 AM Modules accepted: [facility]06-24-2024 History of Present illness Narrative* Coco Shah [...] other than anticoagulant On statin therapy Other halfway (current) drug therapy Personal history of other [...] Uric acid was normal at 5.9 15. HAM SMOKER was 1.23 with GFR of 60 and is now elevated at 1.42 with GFR of 51 16. Derm F/U per Dr. Joe malloy 17. Stop Aleve 18. Optho F/U per Dr. Chan. 19. 90 day supply on medications 20. 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 side effects of prednisone gone over with the patient 21. Hgb 12.7 22. Call if need Rx's 23. Follow-up with me in 6 months documented in this [facility]12-13-2023 History of Present illness Narrative* Coco [...] of other malignant neoplasm of skin Other halfway (current) drug therapy On statin therapy Nocturia 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, halfway, current use Long-term current use of high [...] Uric acid was normal at 5.9 15. HAM SMOKER was elevated at 1.55 with GFR of [...] be used as needed 23. 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 side effects of prednisone gone over with the patient 24. Rx given for 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 3 pills one day a week [facility] History of Present illness Narrative* Coco [...] high risk medication other than anticoagulant 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, 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, current use On statin therapy Other 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 (current) drug therapy Cervical disc disorder Cervical [...] Uric acid was normal at 5.9 15. HAM SMOKER is elevated at 1.55 with GFr of [...] me in 4 months documented in this [facility]05-15-2023 [facility] HISTORY & PHYSICAL NAME ACCOUNT SEX AGE ADMIT DISCHARGE PT MED. RECORD# NUMBER DATE DATE TYPE LESLY [id number] M 77 03/03/23 03/03/23 2 YESSI [id number] ROOM: DATE OF : 41 DICTATING PHYSICIAN: [...] was made for him to go to [facility], but unfortunately the appointment is not for at least another month. The patient then had called the office stating that his foot was starting to get warm and swollen, and the previous cultures had been taken. The patient was encouraged to report to the Emergency Department, where he did at [facility]. He was admitted for a few days and placed on antibiotics. He was educated that surgical intervention would likely be necessary in an effort to heal the wound. The patient wished to follow up as an outpatient to have the surgery performed. When the patient had come to the office, he stated that another market news reporter had suggested a Cosme arthroplasty with pin [...] will present for outpatient surgical intervention to [facility] on the morning of March 04, [...] Patrick Rojas DPM 03/03/23 17:05 JOB #: [id number] Transcribed By: fani 03/03/23 17:15 Electronically signed by: GLENN ROJAS 03/28/23 07:28 Update to H&P: [ ] No changes: I have examined the patient and reviewed the H&P and there are no changes. [ ] As previously dictated with the following changes: ____ ____ ____ PHYSICIAN SIGNATURE: TIME: DATE: Page 2 of 2 YESSI HATCH [facility] Hospital Discharge instructions Additional Instructions Date of Discharge: 02/27/23[facility] Work Phone: 1(813) 351-521704-15-2023 Progress note Author Chevy Bautista [facility] February 26, 2023 4:50pm Note Date/Time February 26, 2023 4:4 2pm [facility] Medical Records Department [address] [place] [address] Progress Note 02/26/23 1633 MR#: [id number] Acct: [id number] Name: YESSI HATCH Rep #:[id number] : 1945 77 From: Chevy schroeder DPM PCP: Dr. Zach Turner MD Status:ADM IN [place] [facility] [place] Subjective Subjective Patient seen this afternoon resting [...] % (Auto) 69.1, Lymph % (Auto) 19.7, [place]auf[place] % (Auto) 7.2, Eos % (Auto) 3.1, [...] D.P.M[facility] [phone] 02/26/23 1650 <Electronically signed by Chevy Bautista DPM> Chevy Faulkner Cosigner Signature (if applicable): CC: ~ Signed [facility] Work Phone: 1(625) 682-672604-14-2023 Consult note Author Chevy Bautista [facility] February 25, 2023 7:05pm Note Date/Time February 25, 2023 6:5 6pm [facility] Medical Records Department [address] [place] [address] Consultation 02/25/23 1834 MR#: [id number] Acct: [id number] Name: YESSI HATCH Rep #:[id number] : 1945 77 From: Chevy schroeder DPM PCP: Dr. Zach Turner MD Status:ADM IN Location: MS3 [id number] Assessment & Plan Assessment/Plan (1) Diabetic foot [...] SorensenP.M. [facility] [phone] HPI Consult Data Date of Consult: 02/25/23 HPI Narrative Reason for Consultation: Left Sub hallux ulceration HPI Narrative: YESSI HATCH, is a 77 M who presents presents to the [facility] ED with a nonhealing ulceration [...] have bloody drainage. He was admitted to [facility] and hewas consulted to podiatry for evaluation of his nonhealing plantar hallux wound. [facility] Medical History (Updated 02/25/23 @ 18:52 by [...] 76.7 H, Lymph % (Auto) 11.3 L, Kaufman % (Auto) 8.9, Eos % (Auto) 2.2, [...] 13:57 EDT Reading Location ID and State: [address] [place] [address] , Service support , 02/25/23 1905 <Electronically signed by Chevy Bautista DPM> Cosigner Signature (if applicable): CC: Dr. Zach Turner MD~ Signed [facility] Work Phone: 1(304) 417-149504-14-[address] White [facility] February 25, 2023 5:17pm Note Date/Time February 25, 2023 12: 41pm [facility] Medical Records Department [address] [place] [address] Emergency Department Summary 02/25/23 MR#: [id number] Acct: [id number] Name: YESSI HATCH Rep #:[id number] : 1945 77 From: Mervin White MD PCP: Dr. Zach Turner MD Status:ADM IN [facility] History of Present Illness Chief Complaint: [...] a little malaised today compared to normal. [facility] Medical History Acute osteomyelitis involving ankle and [...] mg-vit E 90 mg-zinc 40 mg-copper 1 eu-ogpnew-tfkkiq capsule 1 cap PO DAILY 02/20/20 [History Last Taken Unknown] glipizide 10 mg tablet 10 mg PO DAILY 05/30/20 [History Last Taken Unknown] infliximab-dyyb 100 mg intravenous solution (Inflectra) mg IV [id number] psoriaticarthritis 05/30/20 [History Last Taken 08/15/20] naproxen [...] 76.7 H Lymph % (Auto) 11.3 L Kaufman % (Auto) 8.9 Eos % (Auto) 2.2 [...] 13:57 EDT Reading Location ID and State: [facility] / [place] , Service support , Management Discussion w/another healthcare provider: Hospitalist Discharge Plan Triage Chief Complaint: Cellulitis ED Provider: Mervin White Dx/Rx/DC Orders Clinical Impression: Diabetic infection of left foot, Cellulitis of left foot Prescriptions: No Action Inflectra 100 mg recon soln IV [id number] Label Comments: IV Rx Instructions: 8 MG/KG [...] MG tablet 5 mg PO DAILY vit C,R-Cx-yidup-lutein-zeaxan [id number] ea-hkje-xi-mg capsule 1 cap PO DAILY methotrexate sodium [...] - Disposition Disposition: Acute Care Hospital [facility] What to do if you have Problems For any increased pain, shortness of breath, bleeding, nausea or vomiting, chestpain, or any unexpected problems, contact your Primary Care Provider. Call [facility] ([phone]) or report to the closest Emergency Room. Call 911 if necessary. 02/25/231716 <Electronically signed by Mervin White MD> Cosigner Signature (if applicable): CC: Dr. Zach Turner MD ~ Signed [facility] Work Phone: 1(232) 302-965701-18-2023 Progress note Author Tanesha Alva [facility] December 01, 2022 10:24am Note Date/Time December 01, 2022 1 0:24am [facility]aling [facility] [place] [address] Progress Note - Wound Care 12/01/22 1021 MR#: [id number] Acct: [id number] Name: YESSI HATCH Rep #:[id number] : 1945 77 From: Tanesha Alva NP MEDICAL APPLIANCE MAKER-C PCP: Dr. Zach Turner MD Status:REG RCR [...] He has been seen by his own market news reporter Dr. Nguyen and he referred him tohere. [...] Recorded Date Recorded By Document 11/24/22 09:40 [facility] [id number] 11/24/22 09:45 [facility] Document 12/01/22 09:50 [place] [id number] 12/01/22 09:53 [place] 11/24/22 12/01/22 09:40 09:50 - Today's Visit Information Type of service Follow-up Visit Follow-up Visit (Physician/HOSPITAL SECURITY OFFICER (Physician/HOSPITAL SECURITY OFFICER ) ) Arrival Mode Ambulatory Ambulatory Transfer [...] Recorded Date Recorded By Document 11/24/22 09:40 [facility] [id number] 11/24/22 09:45 [facility] Document 12/01/22 09:50 [place] [id number] 12/01/22 09:53 [place] 11/24/22 12/01/22 09:40 09:50 [...] Amt Medium (34-66%) Large (67-100%) -Granulation Quality [place],Red Red -Slough/Fibrin No No -Necrosis Amt Medium [...] Date Recorded By Document 11/24/22 09:57 MW [id number] 11/24/22 10:04 MW Document 12/01/22 09:58 MW [id number] 12/01/22 10:01 MW 11/24/22 12/01/22 09:57 09:58 [...] Recorded Date Recorded By Document 11/24/22 10:13 [facility] [id number] 11/24/22 10:13 [facility] 11/24/22 10:13 Wound Care Nurse [...] 1024 <Electronically signed by Tanesha Alva NP MEDICAL APPLIANCE MAKER-C> Cosigner Signature (if applicable): CC: ~ Signed [facility] Work Phone: 1(945) 961-390301-11-2023 Progress note Author Tanesha Alva [facility] November 24, 2022 11:10am Note Date/Time November 24, 2022 1 1:10am [facility] [address] [place] [address] Progress Note - Wound Care 11/24/22 1107 MR#: [id number] Acct: [id number] Name: YESSI HATCH Rep #:[id number] : 1945 77 From: Tanesha Alva NP MEDICAL APPLIANCE MAKER-C PCP: Dr. Zach Turner MD Status:REG RCR [...] He has been seen by his own market news reporter Dr. Nguyen and he referred him tohere. [...] Recorded Date Recorded By Document 11/24/22 09:40 [facility] [id number] 11/24/22 09:45 [facility] 11/24/22 09:40 WC - Today's Visit Information Type of service Follow-up Visit (Physician/HOSPITAL SECURITY OFFICER ) Arrival Mode Ambulatory Transfer Assistance None [...] Recorded Date Recorded By Document 11/24/22 09:40 [facility] [id number] 11/24/22 09:45 [facility] 11/24/22 09:40 Wound Center Nurse [...] Attached -Granulation Amt Medium (34-66%) -Granulation Quality [place],Red -Slough/Fibrin No -Necrosis Amt Medium (34-66%) -Necrotic [...] Date Recorded By Document 11/24/22 09:57 MW [id number] 11/24/22 10:04 MW 11/24/22 09:57 Wound Center [...] Recorded Date Recorded By Document 11/24/22 10:13 [facility] [id number] 11/24/22 10:13 [facility] 11/24/22 10:13 Wound Care Nurse [...] 1110 <Electronically signed by Tanesha Alva NP MEDICAL APPLIANCE MAKER-C> Cosigner Signature (if applicable): CC: ~ Signed [facility] Work Phone: 1(184) 455-237811-07-2022 History of Present illness Narrative* Coco Shah [...] other than anticoagulant On statin therapy Other halfway (current) drug therapy Cervical disc disorder Cervical [...] per Dr. Chan. 19. Wound clinic in [place] 20. 90 day supply on medications [facility] History of Present illness Narrative* Coco [...] of skin History of osteomyelitis 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 Long-term current use of high risk medication other than anticoagulant 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, 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, current use On statin therapy Other halfway (current) drug therapy Personal history of other [...] per Dr. Chan. 20. Wound clinic in [place] . 90 day supply on medications documented in this [facility]01-03-2022 SARS-CoV RNA RENATE+probe Ql (Unsp spec)Coronavirus 2019 (RENATE)November 16, 2021 12:37pmDetectedNot DetectedPatients who have a positive COVID-19 test result may nowhave treatment options. Treatment options are available forpatients with mild to moderate symptoms and forhospitalized patients. Visit our website [email or web address] for resources andinformation.This nucleic acid amplification test [...] of in vitro diagnostic tests for detection rfQFPP-HaU-8 virus and/or diagnosis of COVID-19 infectionunder section [...] have a negative(not detected) result in this assay.[facility] INTERFACED A#[id number] [facility] Medical Center Work Phone: Comment on above:Patients who have a positive COVID-19 test result may nowhave treatment options. Treatment options are available forpatients with mild to moderate symptoms and forhospitalized patients. Visit our website [email or web address] for resources andinformation.This nucleic acid amplification test was developed and itsperformance characteristics determined by [facility]. Nucleic acid amplification tests include RT- PCR and TMA. This test has not been FDA cleared orapproved. This test has been authorized by FDA under anEmergency Use Authorization (EUA). This test is onlyauthorizedfor the duration of time the declaration thatcircumstances exist justifying the authorization of theemergency use of in vitro diagnostic tests for detection zfXPOR-AwL-0 virus and/or diagnosis of COVID-19 infectionunder section [...] palmaris et plantaris Psoriasis Psoriatic arthritis Other halfway (current) drug therapy History of malignant neoplasm of skin Long-term current use of high risk medication other than anticoagulant Personal history of other malignant neoplasm of skin Encounter for long-term (current) use of non-steroidal anti-inflammatories 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, halfway, current use 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 Osteoarthritis of both [...] me in 4 months [facility]. Hendricks [facility] February 27, 2023 11:48am Note Date/Time February 27, 2023 11: 42am [facility] Medical Records Department [address] [place] [address] Instructions for Home/Discharge Instructions 02/27/23 1138 MR#: [id number] Acct: [id number] Name: YESSI HATCH Rep #:[id number] : 1945 77 From: Eddie Hendricks DO [...] Label Comments: IV Rx Instructions: 8 MG/KG, z4mlgae glucosamine HCl 1,500 mg tablet 1,500 mg [...] Bautista; Dr. Zach Turner MD ~ Signed [facility] Work Phone: Discharge summary Author [facility]oco [facility] Note Date/Time April 17, 2025 1:52p [facility] Medical Records Department [address] [place] [address] Discharge Summary 04/17/25 1340 MR#: [id number] Acct: [id number] Name: YESSI HATCH Rep #:[id number] : 1945 79 From: Coco Pepe MD PCP: Dr. Zach Turner MD Status:ADM IN [place] [facility] [place] Providers Date of Admission: 04/15/25 Date of Discharge: 04/17/25 Primary Care Physician: Dr. Zach Turner MD Consultations 04/15/25 18:28 Consult: Infectious Disease Routine Consulting Provider: Latonia Berry Reason for Consult: DFU EMERGENT Consult: No MD Notified: Yes Date Notified: 04/16/25 Time Notified: 06:37 Method of Notification: Text Consult: Onc/Wound/wire weaver Routine Comment: Reason for Consult:: skin tear [...] mg PO DAILY PRN edema 03/08/25 vitamins A,C,T-wdjs-qmnhlh 4,296 mcg-226 mg-90 mg capsule (PreserVision AREDS) [...] 70.3 H, Lymph % (Auto) 15.0 L, Kaufman % (Auto) 8.9, Eos % (Auto) 4.8, [...] Patient Comments: IV Rx Instructions: 8 MG/KG, f8lxour glucosamine HCl 1,500 mg tablet 1,500 mg [...] Health Service Charges/Coding Visit Charges Inpatient E&M: 52456 Disch Hosp >30min 04/17/25 1352 <Electronically signed by Coco Pepe MD> Cosigner Signature (if applicable): CC: Dr. Coco Pepe MD; Dr. 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 Other psoriasis Psoriasis Other psoriasis Psoriatic arthritis Psoriatic arthropathy Other halfway (current) drug therapy History of malignant neoplasm of skin Personal history of other malignant neoplasm of skin Long-term current use of high risk medication other than anticoagulant Personal history of other malignant neoplasm of skin Encounter for long-term (current) use of non-steroidal anti-inflammatories 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, 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, current use Encounter for long-term (current) use of other medications 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 Osteoarthritis of both knees, unspecified osteoarthritis type Cervical disc disorder, unspecified, unspecified cervical region Primary osteoarthritis of both knees Primary localized osteoarthrosis, lower leg Cervical disc disorder Other and unspecified disc disorder of cervical region [facility] Diagnosis Onset Date Resolution Status Essential hypertension chron ic Hyperlipidemia chronic Paroxysmal ventricular tachycardia chronic Premature atrial contractions chronic Supraventricular tachycardia [facility] Work Phone: Evaluation note* Diagnosis Onset Date Resolution Status Essential hypertension chron ic Hyperlipidemia chronic Paroxysmal ventricular tachycardia chronic Premature atrial contractions chronic Supraventricular tachycardia chronic Decubitus ulcer limited to breakdown of skin (stage 2) acute [id number] [facility] Work Phone: Evaluation note* [...] history of other musculoskeletal disorders 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 Long-term current use of high risk medication other than anticoagulant 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, halfway, current use Encounter for long-term (current) use of other medications On statin therapy Other halfway (current) drug therapy Personal history of other malignant neoplasm of skin Cervical disc disorder Other and unspecified disc disorder of cervical region Cervical disc disorder, unspecified, unspecified cervical region Primary osteoarthritis of both knees Primary localized osteoarthrosis, lower leg Seborrheic eczema Other seborrheic dermatitis Eczema, unspecified type Encounter for long-term (current) use of non-steroidal anti-inflammatories prison 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 Osteoarthritis of both knees, unspecified osteoarthritis type [facility] Diagnosis Onset Date Resolution Status Decubitus ulcer limited to breakdown of skin (stage 2) acute [id number] acute Decubitus ulcer limited to breakdown of skin (stage 2) acute [id number] [facility] Work Phone: Evaluation note* Diagnosis Onset Date Resolution Status Decubitus ulcer limited to breakdown of skin (stage 2) acute [id number] acute Decubitus ulcer limited to breakdown of skin (stage 2) acute [id number] acute Decubitus ulcer limited to breakdown of skin (stage 2) acute [id number] [facility] Work Phone: Evaluation note* Diagnosis Onset Date Resolution Status Decubitus ulcer limited to breakdown of skin (stage 2) acute [id number] acute Decubitus ulcer limited to breakdown of skin (stage 2) acute [id number] acute Decubitus ulcer limited to breakdown of skin (stage 2) acute [id number] acute Decubitus ulcer limited to breakdown of skin (stage 2) acute [id number] [facility] Work Phone: evaluation note* Diagnosis Onset Date Resolution Status Decubitus ulcer limited to breakdown of skin (stage 2) acute [id number] acute Decubitus ulcer limited to breakdown of skin (stage 2) acute [id number] acute Decubitus ulcer limited to breakdown of skin (stage 2) acute [id number] acute Decubitus ulcer limited to breakdown of skin (stage 2) acute [id number] acute Decubitus ulcer limited to breakdown of skin (stage 2) acute [id number] [facility] Work Phone: Evaluation note* [...] other than anticoagulant On statin therapy Other halfway (current) drug therapy Cervical disc disorder Other and unspecified disc disorder of cervical region Cervical disc disorder, unspecified, unspecified cervical region Primary osteoarthritis of both knees Primary localized osteoarthrosis, lower leg [facility]* Diagnosis Onset Date Resolution Status Decubitus ulcer limited to breakdown of skin (stage 2) acute [id number] acute Decubitus ulcer limited to breakdown of skin (stage 2) acute [id number] acute Acquired hallux extensus acu te Acquired hammer toe deformit y of lesser toe of left foot acute Decubitus ulcer limited to breakdown of skin (stage 2) acute [id number] acute Chronic ulcer of right foot with fat layer exposed chronic Diabetes mellitus chronic Diabetic foot ulcer associat ed with type 2 diabetes mellitus chronic Non-pressure chronic ulcer o f other part of left foot with fat layer exposed chronic [facility] Work Phone: Evaluation note* Diagnosis Onset Date Resolution Status Decubitus ulcer limited to breakdown of skin (stage 2) acute [id number] acute Decubitus ulcer limited to breakdown of skin (stage 2) acute [id number] acute Acquired hallux extensus acu te Acquired hammer toe deformit y of lesser toe of left foot acute Decubitus ulcer limited to breakdown of skin (stage 2) acute [id number] acute Chronic ulcer of right foot with fat layer exposed chronic Diabetes mellitus chronic Diabetic foot ulcer associat ed with type 2 diabetes mellitus chronic Non-pressure chronic ulcer o f other part of left foot with fat layer exposed chronic Cellulitis of left foot acut e Diabetic infection of left foot acute [facility] Work Phone: Evaluation note* Diagnosis Onset Date Resolution Status Decubitus ulcer limited to breakdown of skin (stage 2) acute [id number] acute Decubitus ulcer limited to breakdown of skin (stage 2) acute [id number] acute Acquired hallux extensus acu te Acquired hammer toe deformit y of lesser toe of left foot acute Decubitus ulcer limited to breakdown of skin (stage 2) acute [id number] acute Chronic ulcer of right foot with [...] ed with type 2 diabetes mellitus chronic [id number] [facility] Work Phone: Evaluation note* Diagnosis Onset Date Resolution Status Decubitus ulcer limited to breakdown of skin (stage 2) acute [id number] acute Acquired hallux extensus acu te Acquired hammer toe deformit y of lesser toe of left foot acute Decubitus ulcer limited to breakdown of skin (stage 2) acute [id number] acute Chronic ulcer of right foot with [...] ed with type 2 diabetes mellitus chronic [id number] [facility] Work Phone: Evaluation note* Diagnosis Onset Date Resolution Status Acquired hallux extensus acu te Acquired hammer toe deformit y of lesser toe of left foot acute Decubitus ulcer limited to breakdown of skin (stage 2) acute [id number] acute Chronic ulcer of right foot with [...] ed with type 2 diabetes mellitus chronic [id number] [facility] Work Phone: Evaluation note* Diagnosis Onset Date Resolution Status Acquired hammer toe of left foot acute Cellulitis of left foot acut e Deformity of toe of left foot acute Diabetes mellitus with diabetic polyneuropathy acute Diabetic infection of left foot acute Pressure ulcer of toe of right foot, stage 2 acute Diabetic foot ulcer associat ed with type 2 diabetes mellitus chronic [id number] [facility] Work Phone: Evaluation note* Diagnosis Psoriatic arthritis- [...] high risk medication other than anticoagulant 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, 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, current use Encounter for long-term (current) use of other medications On statin therapy Other halfway (current) drug therapy Cervical disc disorder Other and unspecified disc disorder of cervical region Cervical disc disorder, unspecified, unspecified cervical region Primary osteoarthritis of both knees Primary localized osteoarthrosis, lower leg Infliximab (Remicade) long-term use [facility] noteNo assessment information availableWC[facility] Work Phone: Evaluation note* Diagnosis Psoriatic arthritis [...] of other malignant neoplasm of skin Other 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 (current) drug therapy On statin therapy Nocturia 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, 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, current use Encounter for long-term (current) use of other medications Long-term current use of high risk medication other than anticoagulant History of osteomyelitis Personal history of other musculoskeletal disorders History of malignant neoplasm of skin Personal history of other malignant neoplasm of skin Encounter for long-term (current) use of non-steroidal anti-inflammatories documented [facility]* Diagnosis Psoriatic arthritis- Primary Psoriatic [...] other than anticoagulant On statin therapy Other halfway (current) drug therapy Personal history of other malignant neoplasm of skin Cervical disc disorder Other and unspecified disc disorder of cervical region Cervical disc disorder, unspecified, unspecified cervical region Primary osteoarthritis of both knees Primary localized osteoarthrosis, lower leg Psoriasis Other psoriasis Pustulosis palmaris et plantaris Other psoriasis Asteatosis cutis Other specified disease of sebaceous glands 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, halfway, current use Encounter for long-term (current) use of other medications Seborrheic eczema Other seborrheic dermatitis Eczema, unspecified type 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 Osteoarthritis of both knees, unspecified osteoarthritis type documented [facility]* Diagnosis Neoplasm of uncertain behavior of skin- Primary Actinic keratoses Actinic keratosis [facility]* Diagnosis 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 documented in this encounter [facility]* Diagnosis Neoplasm of uncertain behavior of skin- Primary Actinic keratoses Actinic keratosis documented [facility]* Diagnosis Actinic keratoses- Primary Actinic keratosis 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 documented in this encounter [facility]* Diagnosis Psoriatic arthritis- Primary Psoriatic [...] sebaceous glands Actinic keratosis Other proteinuria Other halfway (current) drug therapy On statin therapy 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, halfway, current use Encounter for long-term (current) use of other medications Nocturia Long-term current use of high risk medication other than anticoagulant prison use of drug Encounter for long-term (current) use of other medications Infliximab (Remicade) long-term use History of osteomyelitis Personal history of other musculoskeletal disorders History of malignant neoplasm of skin Personal history of other malignant neoplasm of skin Difficulty in urination Other symptoms involving urinary system Current use of 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 anticoagulation Encounter for long-term (current) use of anticoagulants Abnormal renal function test Nonspecific abnormal results of kidney function study Psoriatic arthritis mutilans Psoriatic arthropathy Encounter for long-term (current) use of non-steroidal anti-inflammatories prison 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 Osteoarthritis of both knees, unspecified osteoarthritis type documented in this [facility]* Diagnosis Stage 3b chronic kidney disease- Primary [facility]* Diagnosis Stage 3b chronic kidney disease [facility] Diagnosis Stage 3b chronic kidney disease- Primary [facility] Diagnosis Skin lesion- Primary Unspecified disorder of skin and subcutaneous tissue Pruritus Unspecified pruritic disorder documented in this encounter [facility] Discharge instructions Additional Instructions Date of Discharge: 02/27/23[facility] Work Phone: Hospital Discharge instructionsAdditional Instructions Return back to the emergency department if bleeding your symptoms symptoms reoccur or worsen. Follow-up with GI for your GI bleed and pancreatic duct stone. 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 for referral (narrative)No reason for referral information availableWCleveland Clinic [facility] Work Phone: Reason for visit Narrative* Radiology (Routine) - Closed Specialty Diagnoses / Procedures Referred By Vanesa t Referred To Contact Diagnoses Stage 3b chronic kidney disease Procedures US RENAL RETROPERITONEAL Christina Cartagena MD [address] [place] [address] Phone: tel: fax: Referral ID Status Reason Start Date Expiration Date Visits Re quested Visits Authorized [id number] Closed 02/28/2025 03/25/2026 [facility] Purpose Family History No Family [...] Will Yes July 20 7:07pm Power of Rejector Yes July 20, 2021 7:07pm Advance Directive Response Recorded Date/ Time Advance Directives Yes February 02 11:57am Living Will No February 22, 2022 1:40pm Power of Rejector Yes February 22 1:40pm Advance Directive Response Recorded Date/ Time Name of Medical Power of Rejector DELMAR HATCH February 22, 2022 1:40pm Advance Directives Yes February 02 11:57am Living Will No February 22, 2022 1:40pm Power of Rejector Yes February 22 1:40pm Advance Directive Response Recorded Date/ Time Advance Directives Yes February 02 10:57am Living Will No February 22, 2022 12:40pm Power of Rejector Yes February 22 12:40pm Advance Directive Response Recorded Date/ Time Advance Directives Yes February 02 11:57am Living Will No February 25, 2023 12:33pm Power of Rejector No February 25 12:33pm Advance Directive Response Recorded Date/ Time Advance Directives Yes February 02 11:57am Living Will Yes February 25, 2023 5:23pm Power of Rejector No February 25 5:23pm Advance Directive Response Recorded Date/ Time Advance Directives Yes February 02 10:57am Living Will Yes February 25, 2023 4:23pm Power of Rejector No February 25 4:23pm Advance Directive Response Recorded Date/ Time Advance Directives Yes February 02 11:57am Advance Directive Response Recorded Date/ Time Living Will Yes February 25, 2023 5:23pm Do you have a Healthcare Power of Rejector? No February 25, 2023 5:23pm Advance Directives Yes February 02 11:57am Advance Directive Response Recorded Date/ Time Living Will Yes February 25, 2023 5:23pm Do you have a Healthcare Power of Rejector? No February 25, 2023 5:23pm Do you have a Healthcare Power of Rejector? Yes April 15, 2025 3:27pm Advance Directives Yes February 02 11:57am Advance Directive Response Recorded Date/ Time Living Will Yes February 25, 2023 5:23pm Do you have a Healthcare Power of Rejector? No February 25, 2023 5:23pm Do you have a Healthcare Power of Rejector? Yes April 15, 2025 6:22pm Advance Directives Yes February 02 11:57am Advance Directive Response Recorded Date/ Time Living Will Yes February 25, 2023 5:23pm Do you have a Healthcare Power of Rejector? No February 25, 2023 5:23pm Living Will Yes March 13, 2025 8:41pm Do you have a Healthcare Power of Rejector? No March 13, 2025 8:41pm Do you have a Healthcare Power of Rejector? Yes April 15, 2025 6:22pm Advance Directives Yes February 02 11:57am Advance Directive Response Recorded Date/ Time Living Will Yes February 25, 2023 5:23pm Do you have a Healthcare Power of Rejector? No February 25, 2023 5:23pm Do you have a Healthcare Power of Rejector? Yes June 21, 2025 4:38pm Living Will Yes March 13, 2025 8:41pm Do you have a Healthcare Power of Rejector? No March 13, 2025 8:41pm Do you have a Healthcare Power of Rejector? Yes April 15, 2025 6:22pm Advance Directives [...] high risk medication other than anticoagulant 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, halfway, current use Other 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 (current) drug therapy Eczema, unspecified type Cervical [...] of other malignant neoplasm of skin Other 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 (current) drug therapy 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, halfway, current use Long-term current use of high [...] 8 weeks. Patient had lab 12/2018 in [place] but I do not have the results [...] high risk medication other than anticoagulant 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, 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, current use Other 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 (current) drug therapy Cervical disc disorder Cervical [...] high risk medication other than anticoagulant 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, halfway, current use Encounter for long-term (current) use of other medications Other halfway (current) drug therapy Eczema, unspecified type Cervical disc disorder Other and unspecified disc disorder of cervical region Cervical disc disorder, unspecified, unspecified cervical region Osteoarthritis of both knees, unspecified osteoarthritis type Primary osteoarthritis of both knees Primary localized osteoarthrosis, lower leg Psoriasis Other psoriasis 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 Encounter for long-term (current) use of non-steroidal anti-inflammatories Diagnosis Psoriatic arthritis mutilans- Primary Psoriatic arthropathy Psoriatic arthritis Psoriatic arthropathy Psoriasis Other psoriasis Eczema, unspecified type Personal history of other malignant neoplasm of skin Other 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 (current) drug therapy 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, 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, current use Encounter for long-term (current) use [...] high risk medication other than anticoagulant 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, halfway, current use Encounter for long-term (current) use of other medications Other 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 (current) drug therapy Claudication Peripheral vascular disease, unspecified Osteoarthritis of both knees, unspecified osteoarthritis type Primary osteoarthritis of both knees Primary localized osteoarthrosis, lower leg Eczema, unspecified type Psoriasis Other psoriasis Diagnosis Psoriatic arthritis 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 Other psoriasis Long-term current use of high risk medication other than anticoagulant 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, halfway, current use Encounter for long-term (current) use of other medications Other halfway (current) drug therapy Cervical disc disorder Other and unspecified disc disorder of cervical region Cervical disc disorder, unspecified, unspecified cervical region Osteoarthritis of both knees, unspecified osteoarthritis type Primary osteoarthritis of both knees Primary localized osteoarthrosis, lower leg Psoriasis Other psoriasis 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 Encounter for [...] limited to breakdown of skin (stage 2) [id number] Chief Complaint PSORIATIC ARTHRITIS INFECTION IN FOOT PSORIATIC ARTHRITIS wound STANDING ORDER wound wound wound wound wound wound wound PSORIATIC ARTHRITIS wound wound Reason for Visit Decubitus ulcer limi brit to breakdown of skin (stage 2) [id number] Decubitus ulcer limited to breakdown of skin (stage 2) [id number] Chief Complaint INFECTION IN FOOT PSORIATIC ARTHRITIS wound STANDING ORDER wound wound wound wound wound wound wound PSORIATIC ARTHRITIS wound wound SINUSITIS Reason for Visit Decubitus ulcer limi brit to breakdown of skin (stage 2) [id number] Decubitus ulcer limited to breakdown of skin (stage 2) [id number] Chief Complaint INFECTION IN FOOT PSORIATIC ARTHRITIS wound STANDING ORDER wound wound wound wound wound wound wound PSORIATIC ARTHRITIS wound wound SINUSITIS wound wound Reason for Visit Decubitus ulcer limi brit to breakdown of skin (stage 2) [id number] Decubitus ulcer limited to breakdown of skin (stage 2) [id number] Decubitus ulcer limited to breakdown of skin (stage 2) [id number] Chief Complaint PSORIATIC ARTHRITIS wound STANDING ORDER wound wound wound wound wound wound wound PSORIATIC ARTHRITIS wound wound SINUSITIS wound S/O wound wound wound wound wound Reason for Visit Decubitus ulcer limi brit to breakdown of skin (stage 2) [id number] Decubitus ulcer limited to breakdown of skin (stage 2) [id number] Decubitus ulcer limited to breakdown of skin (stage 2) [id number] Chief Complaint PSORIATIC ARTHRITIS wound STANDING ORDER wound wound wound wound wound wound wound PSORIATIC ARTHRITIS wound wound SINUSITIS wound S/O wound wound wound wound wound PSORIATIC ARTHRITIS wound wound Reason for Visit Decubitus ulcer limi brit to breakdown of skin (stage 2) [id number] Decubitus ulcer limited to breakdown of skin (stage 2) [id number] Decubitus ulcer limited to breakdown of skin (stage 2) [id number] Decubitus ulcer limited to breakdown of skin (stage 2) [id number] Chief Complaint wound STANDING ORDER wound wound wound wound wound wound wound PSORIATIC ARTHRITIS wound wound SINUSITIS wound S/O wound wound wound wound wound PSORIATIC ARTHRITIS wound wound wound wound wound Reason for Visit Decubitus ulcer limi brit to breakdown of skin (stage 2) [id number] Decubitus ulcer limited to breakdown of skin (stage 2) [id number] Decubitus ulcer limited to breakdown of skin (stage 2) [id number] Decubitus ulcer limited to breakdown of skin (stage 2) [id number] Chief Complaint wound wound wound wound wound wound PSORIATIC ARTHRITIS wound wound SINUSITIS wound S/O wound wound wound wound wound PSORIATIC ARTHRITIS wound wound wound wound wound wound S/O wound wound PSORIATIC ARTHRITIS Reason for Visit Decubitus ulcer limi brit to breakdown of skin (stage 2) [id number] Decubitus ulcer limited to breakdown of skin (stage 2) [id number] Decubitus ulcer limited to breakdown of skin (stage 2) [id number] Decubitus ulcer limited to breakdown of skin (stage 2) [id number] Decubitus ulcer limited to breakdown of skin (stage 2) [id number] Chief Complaint wound wound wound PSORIATIC ARTHRITIS wound wound SINUSITIS wound S/O wound wound wound wound wound PSORIATIC ARTHRITIS wound wound wound wound wound wound S/O wound PSORIATIC ARTHRITIS FLU SHOT wound wound Reason for Visit Decubitus ulcer limi brit to breakdown of skin (stage 2) [id number] Decubitus ulcer limited to breakdown of skin (stage 2) [id number] Decubitus ulcer limited to breakdown of skin (stage 2) [id number] Decubitus ulcer limited to breakdown of skin (stage 2) [id number] Chief Complaint wound S/O wound wound wound wound wound PSORIATIC ARTHRITIS wound wound wound wound wound wound S/O wound PSORIATIC ARTHRITIS FLU SHOT wound wound wound wound wound PSORIATIC ARTHRITIS wound wound Reason for Visit Decubitus ulcer limi brit to breakdown of skin (stage 2) [id number] Decubitus ulcer limited to breakdown of skin (stage 2) [id number] Decubitus ulcer limited to breakdown of skin (stage 2) [id number] Decubitus ulcer limited to breakdown of skin (stage 2) [id number] Chief Complaint wound wound wound wound wound wound S/O wound PSORIATIC ARTHRITIS FLU SHOT wound wound wound wound wound PSORIATIC ARTHRITIS wound wound wound wound wound wound wound Reason for Visit Decubitus ulcer limi brit to breakdown of skin (stage 2) [id number] Decubitus ulcer limited to breakdown of skin (stage 2) [id number] Decubitus ulcer limited to breakdown of skin (stage 2) [id number] Decubitus ulcer limited to breakdown of skin (stage 2) [id number] Chief Complaint wound wound wound wound wound S/O wound PSORIATIC ARTHRITIS FLU SHOT wound wound wound wound wound PSORIATIC ARTHRITIS wound wound wound wound wound wound wound PSORIATIC ARTHRITIS Reason for Visit Decubitus ulcer limi brit to breakdown of skin (stage 2) [id number] Decubitus ulcer limited to breakdown of skin (stage 2) [id number] Decubitus ulcer limited to breakdown of skin (stage 2) [id number] Decubitus ulcer limited to breakdown of skin (stage 2) [id number] Chief Complaint wound wound wound S/O wound PSORIATIC ARTHRITIS FLU SHOT wound wound wound wound wound PSORIATIC ARTHRITIS wound wound wound wound wound wound wound PSORIATIC ARTHRITIS wound S/O EVERY 3 MONTHS wound wound Reason for Visit Decubitus ulcer limi brit to breakdown of skin (stage 2) [id number] Decubitus ulcer limited to breakdown of skin (stage 2) [id number] Decubitus ulcer limited to breakdown of skin (stage 2) [id number] Decubitus ulcer limited to breakdown of skin (stage 2) [id number] Decubitus ulcer limited to breakdown of skin (stage 2) [id number] Chief Complaint wound S/O wound PSORIATIC ARTHRITIS FLU SHOT wound wound wound wound wound PSORIATIC ARTHRITIS wound wound wound wound wound wound wound PSORIATIC ARTHRITIS wound S/O EVERY 3 MONTHS wound wound Reason for Visit Decubitus ulcer limi brit to breakdown of skin (stage 2) [id number] Decubitus ulcer limited to breakdown of skin (stage 2) [id number] Decubitus ulcer limited to breakdown of skin (stage 2) [id number] Decubitus ulcer limited to breakdown of skin (stage 2) [id number] Chief Complaint wound wound wound wound wound PSORIATIC ARTHRITIS wound S/O EVERY 3 MONTHS wound wound wound PSORIATIC ARTHRITIS wound PSORIATIC ARTHRITIS Reason for Visit Decubitus ulcer limi brit to breakdown of skin (stage 2) [id number] Decubitus ulcer limited to breakdown of skin (stage 2) [id number] 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 Decubitus ulcer limited to breakdown of skin (stage 2) [id number] Chronic ulcer of right foot with fat [...] brit to breakdown of skin (stage 2) [id number] Decubitus ulcer limited to breakdown of skin (stage 2) [id number] 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 Decubitus ulcer limited to breakdown of skin (stage 2) [id number] Chronic ulcer of right foot with fat [...] brit to breakdown of skin (stage 2) [id number] Decubitus ulcer limited to breakdown of skin (stage 2) [id number] 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 Decubitus ulcer limited to breakdown of skin (stage 2) [id number] Chronic ulcer of right foot with fat [...] ulcer associated with type 2 diabetes mellitus [id number] Chief Complaint wound wound wound PSORIATIC ARTHRITIS wound PSORIATIC ARTHRITIS CELLULITIS Cellulitis Cellulitis Cellulitis PSORIATIC ARTHRITIS Reason for Visit Decubitus ulcer limi brit to breakdown of skin (stage 2) [id number] 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 Decubitus ulcer limited to breakdown of skin (stage 2) [id number] Chronic ulcer of right foot with fat [...] ulcer associated with type 2 diabetes mellitus [id number] Chief Complaint wound PSORIATIC ARTHRITIS CELLULITIS Cellulitis Cellulitis Cellulitis PSORIATIC ARTHRITIS 2 ORDERING DOCTORS Reason for Visit Acquired hallux exte nsus 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 Decubitus ulcer limited to breakdown of skin (stage 2) [id number] Chronic ulcer of right foot with fat [...] ulcer associated with type 2 diabetes mellitus [id number] Chief Complaint PSORIATIC ARTHRITIS CELLULITIS Cellulitis Cellulitis Cellulitis PSORIATIC ARTHRITIS 2 ORDERING DOCTORS Reason for Visit Acquired hammer toe of left foot Cellulitis of left foot Deformity of toe of left foot Diabetes mellitus with diabetic polyneuropathy Diabetic infection of left foot Pressure ulcer of toe of right foot, stage 2 Diabetic foot ulcer associated with type 2 diabetes mellitus [id number] Chief Complaint PSORIATIC ARTHRITIS CELLULITIS Cellulitis Cellulitis [...] ulcer associated with type 2 diabetes mellitus [id number] Chief Complaint PSORIATIC ARTHRITIS CELLULITIS Cellulitis Cellulitis [...] ulcer associated with type 2 diabetes mellitus [id number] Chief Complaint CELLULITIS Cellulitis Cellulitis Cellulitis PSORIATIC [...] ulcer associated with type 2 diabetes mellitus [id number] Chief Complaint PSORIATIC ARTHRITIS 2 ORDERING DOCTORS [...] high risk medication other than anticoagulant 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, halfway, current use Other halfway (current) drug therapy Cervical disc disorder Cervical disc disorder, unspecified, unspecified cervical region Primary osteoarthritis of both knees Seborrheic eczema Eczema, unspecified type Encounter for long-term (current) use of non-steroidal anti-inflammatories prison 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 Osteoarthritis of both knees, unspecified osteoarthritis type Pablo Wilson, Coco Carter, DO [address] [place] [address] Referral ID Status Reason Start Date Expiration Date Visits Re quested Visits Authorized [id number] Closed 1 1 Specialty Diagnoses / Procedures Referred By Vanesa shultz Referred To Contact Diagnoses Psoriatic arthritis Psoriatic arthritis mutilans Encounter for long-term (current) use of non-steroidal anti-inflammatories Long-term current use of high risk medication other than anticoagulant Other 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 (current) drug therapy Cervical disc disorder Cervical disc disorder, unspecified, unspecified cervical region Primary osteoarthritis of both knees 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 Methotrexate, 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, current use Seborrheic eczema Eczema, unspecified type prison 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 Osteoarthritis of both knees, unspecified osteoarthritis type Pablo Wilson, Coco Carter, DO [address] [place] [address] Referral ID Status Reason Start Date Expiration Date V isits Requested Visits Authorized [id number] Pending Review 1 1 Additional Source Comments (unrecognized sect ion and content) No Status Records FoundNo Status Records FoundNo Status Records FoundNo Status Records FoundNo Status Records FoundNo Status Records FoundNo Status Records Found INFORMATION SOURCE (unrecogn ized section and content) DATE CREATED AUTHOR 05/10/2018 [facility] DATE CREATED AUTHOR AUTHOR'S ORGANIZ ATION 03/10/2023 [facility] ([place] DATE CREATED AUTHOR AUTHOR'S ORGANIZ ATION 03/28/2023 [facility] DATE CREATED AUTHOR AUTHOR'S ORGANIZ ATION 05/04/2023 [facility] DATE CREATED AUTHOR AUTHOR'S ORGANIZ ATION 06/03/2025 [facility] DATE CREATED AUTHOR AUTHOR'S ORGANIZ ATION 06/14/2025 [facility] DATE CREATED AUTHOR AUTHOR'S ORGANIZ ATION 06/28/2025 [facility] Reason for Visit (unrecogniz ed section and [...] infusions are working. 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 Patient states is having pain in the knees constantly. Having issues with balance. Reason Comments New Patient Ref- 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 Abnormal renal function test Psoriatic arthritis shirley Shah Jr., Coco Carter, DO [address] [place] [address] Phone: tel: fax: Christina Cartagena MD [address] [facility] [place] [address] Phone: tel: fax: Referral ID Status Reason Start Date Expiration Date Visits Re quested Visits Authorized [id number] Closed 01/25/2025 02/19/2026 1 1 Reason Comments [...] Care Teams (unrecognized sec tion and content) [employer] Presser Relationship Specialty Start Date End Date Zach Turner MD [address] [place] [address] PCP - General Family Medicine 04/18/17 [employer] Presser Relationship Specialty Start Date End Date Zach Turner MD [address] [place] [address] PCP - General Family Medicine 04/18/17 Team Status: Active Member Role Status Dates Dr. Zach Turner MD Family Provider Active Dr. Zach Turner MD Primary Care Provider Active Team Status: Inactive Member Role Status Dates Dr. Zach Turner MD Primary Care Provider, Referring P chaz Active Alireza Grace PA, PA Attending Provider Active Team Status: Active Member Role Status Dates Dr. Zach Turner MD Primary Care Provider Active Tanesha Alva MEDICAL APPLIANCE MAKER, MEDICAL APPLIANCE MAKER-C Attending Provider, Other Pro vider Active Team Status: Active Member Role Status Dates Dr. Zach Turner MD Primary Care Provider Active Tanesha Alva MEDICAL APPLIANCE MAKER, MEDICAL APPLIANCE MAKER-C Attending Provi villa, Referring Provider, Other Provider Active Team Status: Inactive Member Role Status Dates Dr. Zach Turner MD Primary Care Provider Active Dr. Coco Shah Jr., MD Attending Provider, Ref erring Provider Active Team Status: Inactive Member Role Status Dates Dr. Zach Turner MD Primary Care Provider Active Tanesha Alva MEDICAL APPLIANCE MAKER, MEDICAL APPLIANCE MAKER-C Attending Provider Active Team Status: Inactive Member Role Status Dates Dr. Zach Turner MD Primary Care Provide r, Attending Provider, Referring Provider Active Team Status: Inactive Member Role Status Dates Dr. Zach Turner MD Primary Care Provider Active Tanesha Alva MEDICAL APPLIANCE MAKER, MEDICAL APPLIANCE MAKER-C Attending Provider, Referring Provider Active Team Status: Active Member Role Status Dates Dr. Zach Turner MD Primary Care Provider Active Tanesha Alva NP, MEDICAL APPLIANCE MAKER-C Attending Provider, Referring Provider Active Team Status: Active Member Role Status Dates Dr. Zach Turner MD Primary Care Provider Active Dr. Coco Shah Jr., MD Attending Provider, Ref erring Provider Active Team Status: Inactive Member Role Status Dates Dr. Zach Turner MD Primary Care Provider Active Tanesha Alva MEDICAL APPLIANCE MAKER, MEDICAL APPLIANCE MAKER-C Other Provider Active Dr. Chevy Bautista DPM [...] Provider Active Self Referred Attending Provider Active [employer] Presser Relationship Specialty Start Date End Date Zach [place] [address] [place] [address] PCP - General Family Medicine 04/18/17 Team Status: Inactive Member Role Status Dates Dr. Coco Shah Jr., MD Attending Provider, Ref erring Provider Active Dr. Zach Turner MD Primary Care Provider Active [employer] Presser Relationship Specialty Start Date End Date Zach Turner MD [address] [place] [address] PCP - General Family Medicine 04/18/17 [employer] Presser Relationship Specialty Start Date End Date Zach Turner MD [address] [facility] [place] [address] PCP - General Family Medicine 04/18/17 [employer] Presser Relationship Specialty Start Date End Date Zach Turner [address] [facility] [address] [place] [address] PCP - General Family Medicine 07/11/24 [employer] Presser Relationship Specialty Start Date End Date Zach Turner [address] [facility] [address] [place] [address] PCP - General Family Medicine 07/11/24 [employer] Presser Relationship Specialty Start Date End Date Zach Turner [address] [facility] [address] [place] [address] PCP - General Family Medicine 07/11/24 [employer] Presser Relationship Specialty Start Date End Date Zach Turner [address] [facility] [address] [place] [address] PCP - General Family Medicine 07/11/24 [employer] Presser Relationship Specialty Start Date End Date Zach Turner MD [address] [place] [address] PCP - General Family Medicine 04/18/17 Team [...] February 21, 2025 End: February 21, 2025 [employer] Presser Relationship Specialty Start Date End Date Zach [...] Status: Active Member Role Status Dates Dr. aZch Turner MD Primary Care Provider Active Start: [...] May 14, 2025 End: May 14, 2025 [employer] Presser Relationship Specialty Start Date End Date Zach Turner MD PCP - General Family Medicine 04/18/17 Team Status: Inactive Member Role/Relationship Status Dates Dr. Zach Turner MD Primary Care Provider Active Start: May 24, 2025 End: May 24, 2025 Dr. Memo Hernández MD Attending Provider Active Start: May [...] Provider Acti ve Start: May 28, 2025 [employer] Presser Relationship Specialty Start Date End Date Zach [...] June 07, 2025 End: June 07, 2025 [employer] Presser Relationship Specialty Start Date End Date Zach Turner [address] [id number] PCP - General Family Medicine 07/11/24 Team [...] BE BASED ON THE PRIMARY CLINICAL RECORDS. [employer] provides no warranty or guarantee of the accuracy or completeness of information in this document.
[2025-06-28 23:40] LABS: Mucous, Urine 0 SEEN /hpf (<or=2+); Red Blood Cells-Urine 0 SEEN /hpf (0-5)
[2025-06-28 23:43] VITALS: BP 145/90; PULSE 90; RESP 18; TEMP 36.7; O2SAT 100
[2025-06-28 23:49] LABS: Color, Urine Straw (Yellow); Glucose, Dipstick 1000 mg/dl (Normal); Ketone-Dipstick Negative (Negative); Leukocyte Esterase-Dipstick Negative /ul (Negative); Nitrite-Dipstick Negative (Negative); Occult Blood-Urine 10 /ul (Negative); Protein-Dipstick 30 mg/dl (Negative); Specific Gravity, Urine 1.010 (1.002-1.030); Urine Bilirubin Dipstick Negative (Negative)
[2025-06-29] VITALS (22 sets, daily range): BP systolic 116–167; BP diastolic 59–102; PULSE 68–103; RESP 14–30; TEMP 36.4–36.8; O2SAT 96–100; BMI 23.6
[2025-06-29 00:14] LABS: Squamous Epithelial Cells - UA 0-5 SEEN /hpf (0-5)
[2025-06-29 00:20] LABS: Alcohol, Blood (Medical)-Serum < 10.1 mg/dL (<=10.0)
[2025-06-29 00:22] LABS: Hematocrit 39.9 % (40-54); Hemoglobin 14.6 g/dL (13.0-16.5); Immature Granulocytes Count 0.090 X10^3/uL (0.0-0.0); Mean Corp Hgb Conc 36.6 g/dL (32-36); Mean Corpuscular Volume 93.2 fL (80-94); Mean Platelet Vol. 10.2 fl (6.2-12.0); NRBC Flagged by Analyzer 0 % (0-5); Platelet Count 260 K/mm3 (150-450); RBC Distribution Width CV 13.2 % (11.6-14.6); RBC Distribution Width SD 42.5 fl (35.1-43.9); Red Blood Count 4.28 M/mm3 (4.6-6.2); White Blood Count 8.1 K/mm3 (4.4-11.0)
[2025-06-29 00:23] LABS: AST(SGOT) 47 U/L (<=37); Alanine Aminotransfer ALT/SGPT 61 U/L (<=46); Albumin, Serum 4.0 g/dL (3.4-4.8); Alkaline Phosphatase 103 U/L (40-129); Anion Gap 14 (5-15); BUN 22 mg/dL (4-19); BUN/Creat Ratio 15.6 RATIO (10-20); Calcium,Total 9.7 mg/dL (7.6-11.0); Carbon Dioxide 21.0 mmol/L (21.0-32.0); Chloride 102 mmol/L (98-108); Estimated Creatinine Clearance 43.71 ml/min (50-250); Globulin 3.8 g/dL (2.2-4.2); Glucose 141 mg/dL (70-99); Magnesium 2.1 mg/dL (1.5-2.2); Potassium 3.9 mmol/L (3.3-5.1)
[2025-06-29 00:32] LABS: Lipase 2184 U/L (13-75)
[2025-06-29] MEDS: 0.9% Normal Saline (1000mL) 1,000 ML 100 ML IV ×2 (00:33→10:43)
[2025-06-29] MEDS: Aztreonam 1 GM 1 GM in 0.9% Normal Saline (50mL MB+) 50 ML IV ×3 (00:38→22:54)
[2025-06-29] MEDS: Pantoprazole Sodium 40 MG in 0.9% Normal Saline (100mL MB+) 100 ML 330 MG IV ×2 (00:41→22:16)
[2025-06-29] MEDS: metroNIDAZOLE 500 MG/100 ML BAG 100 MG IV ×4 (00:42→22:53)
--- OUTSIDE RECORDS SUMMARY | 2025-06-29 03:50 | XMS RPT_ITS | CCD ---
Author Organization [facility] Care Team Providers Care Machinist 2Nd Shift Name Role Phone Russell Tomasa COWART S Unavailable MD Teri, Larry S Unavailable Zach Turner Primary Care Provider [phone] Zach Turner Primary Care Provider Zach Turner MD Primary Care Provider Dr. Zach Turner Primary Care Provider Dr. Zach Turner Referring Provider [phone] Dr. Betito Torres Attending Provider [facility] MECHANICAL TECHNICAL SERVICE SPECIALIST, MECHANICAL TECHNICAL SERVICE SPECIALIST-C Merrill Carroll Attending Provider Dr. Zach Turner [...] Provider Kristi BENITEZ, Dr. Phipps Other Provider [phone] My BENITEZ, Dr. Alva Other Provider Unavailable Johnny BENITEZ, Dr. Garcia Primary Care Provider Pablo BENITEZ, Dr. Coco Carter Attending Provider Pablo BENITEZ, Dr. Coco Carter Referring Provider [phone] Johnny BENITEZ, Dr. Garcia Referring Provider Kristi BENITEZ, Dr. Phipps Attending Provider Kristi BENITEZ, Dr. Phipps Referring Provider Edgar BENITEZ, Dr. Memo Gillette Attending Provider [phone] Edgar BENITEZ, Dr. Memo Gillette Referring Provider [...] Pearce Attending Unavailable Jose Pearce Referring Unavailable Turenr, Zach Primary Care Unavailable Coco Pepe Attending Unavailable Coco Pepe Admitting Unavailable Patrick Rojas Consulting Unavailable Tunrer, Zach Primary Care Unavailable Latonia Berry Consulting Unavailable Coco Pepe Consulting Unavailable Turner, Zach Primary Care Unavailable Pablo Wilson, Coco Carter Referring Unavaila ble Stainbrook Jr., Coco Carter Attending Unavaila ble Turner, Zach Primary Care Unavailable Odalis Lara Attending Unavailable Turner, Zach Referring Unavailable Turner, Zach Primary Care Unavailable Chevy Gary Attending Unavailable Johnny, Zach Referring Unavailable Stainbrook Jr., Coco Carter [...] Unavaila ble Turner, Zach Primary Care Unavailable Johnny BENITEZ, Dr. Garcia Primary Care Provider Johnny BENITEZ, Dr. Garcia Referring Provider Abdirahman BENITEZ, Dr. Reece Attending Provider Martine DPM, Dr. Solano Attending Provider Martine DPM, Dr. Solano Referring Provider Pablo BENITEZ, Dr. Coco Carter Attending Provider [phone] Pablo BENITEZ, Dr. Coco Carter Referring Provider Shahab BURKETT, Dr. Hernández Emergency Provider My BENITEZ, Dr. Alva Admit Provider Unavailable My BENITEZ, Dr. Alva Attending Provider Unavaila ble Martine DPM, Dr. Solano Other Provider Kristi BENITEZ, Dr. Phipps Other Provider My BENITEZ, Dr. Alva Other Provider Unavailable Kristi BENITEZ, Dr. Phipps Attending Provider [phone] Kristi BENITEZ, Dr. Phipps Referring Provider Edgar BENITEZ, Dr. Memo Gillette Attending Provider [phone] Edgar BENITEZ, Dr. Memo Gillette Referring Provider Shahab BURKETT, Dr. Hernández Attending Provider Ron BENITEZ, Dr. Means Attending Provider Héctor BENITEZ, Dr. Thomas Emergency Provider Unavailab le Dr. Coco Herman DO Admit Provider Unavail able Dr. Coco Herman DO Attending Provider Unav ailable Allergies Allergy Classification Reported Allergen(s) Allergy Type Date of Onset Reaction(s) Facility Cephalosporins (antibiotic) (1 source) Cephalexin Drug Allergy 06-01-20 19 [facility] Dihydrofolate Reductase Inhibitors (antibiotic) (1 source) Trimethoprim Drug Allergy 06-01-20 19 [facility] Penicillins (antibiotic) (1 source) Penicillins Drug Allergy [facility] Sulfonamides (antibiotic) (1 source) Sulfamethoxazole Drug Allergy 06-01-20 19 [facility] (2 sources) penicillin Drug Allergy 03-10-20 11 [facility] Work Phone: (19 sources) Penicillins Propensity to adverse reactions to drug 02-04-20 22 Unknown [facility] Work Phone: (20 sources) Cephalexin Drug Allergy 06-01-20 19 [facility] (20 sources) Sulfamethoxazole Drug Allergy 06-01-20 19 [facility] (20 sources) Trimethoprim Drug Allergy 06-01-20 19 [facility] (20 sources) levoFLOXacin Drug Allergy 07-20-[address] [facility] Comment on above: tendon separation (20 sources) Penicillins Propensity to adverse reactions 02-23-20 22 Unknown, Rash [facility] (1 source) levoFLOXacin Drug Allergy [facility] (1 source) Penicillin Drug Allergy [facility] (1 source) Sulfamethoxazole / Trimethoprim Drug Allergy [facility] (12 sources) Penicillins Propensity to adverse reactions to drug 11-27-19 09 Rash, Unknown [facility] (12 sources) Sulfamethoxazole Propensity to adverse reactions to drug 06-01-20 19 [facility] (15 sources) Doxycycline Drug Allergy 06-29-20 24 GI upset [facility] (5 sources) Sulfamethoxazole / Trimethoprim Drug Allergy 07-11-20 24 [facility] (2 sources) cefdinir Drug Allergy 06-21-20 25 Abd cramps/diarrhe a [facility] (1 source) cefdinir Drug Allergy 06-21-[address] [facility] (1 source) Cephalexin Drug Allergy 06-21-20 [facility] (1 source) Doxycycline Drug Allergy 06-21-20 [facility] (1 source) levoFLOXacin Drug Allergy 06-21-20 [facility] (1 source) Penicillins Drug allergy (disorder) 06-21-20 [facility] (1 source) Sulfamethoxazole Drug Allergy 06-21-20 [facility] (1 source) Trimethoprim Drug Allergy 06-21-20 [facility] Medications Current Medications Medication Drug Class(es) Dates Sig (Normalized) Sig (Original) acetaminophen 325 mg oral tablet (20 sources) Start: 04-17-2025 Start: 02-27-2023 acetaminophen (Tylenol) 325 MG tablet Take 650 mg by mouth. 02/27/2023 Active Start: 02-27-2023 End: 05-28-2024 Start: 02-27-2023 take 650 mg by mouth every six hours as needed Acetaminophen Active 650 MG PO EVERY 6 HOURS NEEDED February 27, 2023 12:00am amLODIPine 2.5 mg oral table t (20 sources) Dihydropyridine Calcium Channel Justino Start: 06-21-2025 Start: 04-17-2025 End: 06-21-2025 Start: 07-27-2021 End: 04-17-2025 apixaban 5 mg oral tablet (20 sources) Factor Xa Inhibitor Start: 04-15-2025 Start: 04-15-2025 take 1 tablet by maicol twice daily Apixaban (Eliquis) 5 mg tablet Active 5 mg PO TWICE A DAY April 15, 2025 12:00am Start: 07-30-2024 End: 04-15-2025 Start: 06-20-2024 End: 07-30-2024 Start: 06-20-2024 End: 07-30-2024 take 1 tablet by mouth twice daily Apixaban (Eliquis) 5 mg tablet Discontinued 5 mg PO TWICE A DAY 180 July 17, 2024 10:54am July 30, 2024 2:38pm bimatoprost 0.1 mg/ml ophtha lmic solution (20 sources) Prostaglandin Analog Start: 06-21-2025 Start: 07-02-2024 Lumigan 0.01 % ophthalmic solution 07/02/2024 Active Start: 06-30-2018 End: 06-20-2024 Start: 10-03-2017 take 1 drop(s) into the eye(s) once daily LUMIGAN 0.01 % SOLN One drop in each eye daily BIMATOPROST [id number] Merrill Coppola NP Start: 07-31-2015 End: 10-08-2019 bimatoprost (LUMIGAN) 0.01 % Solution LUMIGAN 0.01 % SOLN 0 10/03/2017 Active End: 07-04-2023 take 1 drop(s) into the eye(s) at bedtime bimatoprost 0.01 % Solution Apply 1 drop to eye at bedtime. 0 07/04/2023 Discontinued carvedilol 25 mg oral tablet (4 sources) alpha-Adrenergic Justino, beta-Adrenergic Justino Start: 06-21-2025 Start: 04-25-2025 carvedilol (Co reg) 25 MG tablet 25 mg. 04/25/2025 Active cholecalciferol 0.025 mg ora l tablet (20 sources) Vitamin D Start: 02-03-2022 End: 06-20-2024 Start: 02-03-2022 End: 06-20-2024 take 1 tablet by mouth once daily Cholecalciferol (Vitamin D3) 25 mcg (1,000 unit) tablet Active 25 ug PO DAILY June 20, 2024 1:41pm supplement empagliflozin 10 mg oral tab let (3 sources) Sodium-Glucose Cotransporter 2 Inhibitor Start: 06-21-2025 Start: 05-30-2025 take 1 tablet by maicol th once daily Empagliflozin (Jardiance) 10 MG tablet Take 1 tablet by mouth daily. 90 tablet 3 05/30/2025 Active finasteride 5 mg oral tablet (20 sources) 5-alpha Reductase Inhibitor Start: 11-24-2012 End: 10-08-2019 fluocinolone acetonide 0.1 m g/ml topical oil (10 sources) Corticosteroid Start: 06-21-2025 Start: 06-12-2025 fluocinolone ( Anton Ruiz-Smoothe) 0.01 % external oil Apply to itchy [...] spray 10/03/2017 05/07/2024 Discontinued Start: 10-03-2017 FLUTICASONE WA OPIONATE 50 MCG/ACT SUSP (0.05mg/inh) 1 spray each nostril once a day FLUTICASONE PROPIONATE [id number] Merrill Coppola NP Start: 02-03-2016 End: 06-30-2018 Start: 02-03-2016 End: 06-30-2018 Fluticasone Propionate 1 SPR AY spray,suspension Active 2 NMA NASAL DAILY as needed for Nasal Congestion June 30, 2018 12:00am Start: 02-03-2016 End: 06-30-2018 Fluticasone Propionate Activ e 2 SPRAY NASAL DAILY June 29, 2018 11:00pm folic acid 1 mg oral tablet (20 sources) Start: 06-30-2018 End: 06-01-2019 Start: 03-21-2018 End: 06-01-2019 take 4 tablets by mouth once daily Folic Acid 1 MG tablet Discontinued 4 mg PO DAILY June 30, 2018 12:00am June 01, 2019 3:14pm Start: 11-29-2016 End: 09-22-2020 folic acid 1 MG Tab tablet F OLIC ACID 1 MG TABS 0 11/29/2016 09/22/2020 Discontinued Ginkgo Biloba [place] Extract (10 sources) Start: 06-20-2024 Start: 06-20-2024 take 1 capsule by mo ut once daily Ginkgo Biloba [place] Extract 60 mg capsule Active 60 mg PO DAILY June 20, 2024 12:00am give with meal/snack glucosamine hydrochloride 15 00 mg oral tablet (20 sources) Start: 02-20-2020 Azhnbeablmu-Lcamusvnq-Rgg C- Mn (GLUCOSAMINE 1500 COMPLEX PO) (6 sources) Glucosamine-Juan Pablo droit-Vit C-Mn (GLUCOSAMINE 1500 COMPLEX PO) Take 1,500 mg by mouth 2 times daily. Active Glucosamine-Juan Pablo droit-Vit C-Mn (GLUCOSAMINE 1500 COMPLEX PO) Take 1,500 mg by mouth 2 times daily. 0 Active hydroCHLOROthiazide 25 mg / spironolactone 25 mg oral tablet (12 sources) Thiazide Diuretic, Aldosterone Antagonist Start: 06-28-2025 Start: 04-15-2025 End: 04-15-2025 Start: 10-30-2024 End: 04-15-2025 take 1 tablet by mouth once daily Spironolacton-Hydrochlorothiaz 25-25 mg tablet Discontinued 1 {tbl} PO DAILY April 15, 2025 12:00am April 15, 2025 3:58pm hydrocortisone 25 mg/ml topical cream (5 sources) [...] unspecified type , Asteatosis cutis , Other fpc (current) drug therapy , Methotrexate, emt intermediate, current use , Long-term current use of high risk medication other than anticoagulant , Encounter for long-term (current) use of non-steroidal anti-inflammatories , Primary osteoarthritis of both knees , Cervical disc disorder, unspecified, unspecified cervical region , Cervical disc disorder , Pustulosis palmaris et plantaris , 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 02/27/2024 Active Start: 02-27-2023 End: 07-08-2023 loteprednol etabonate 0.005 mg/mg ophthalmic ointment (5 sources) Start: 12-29-2023 Lotemax 0.5 % ointment 12/29/2023 Active methotrexate 2.5 mg oral tablet (20 sources) Folate Analog Metabolic Inhibitor Start: 10-26-2023 take 3 tablets by mouth once methotrexate 2.5 MG tablet 3 po one day a week 10/26/2023 Active Start: 08-12-2020 take 3 tablets by mo uth once daily methotrexate 2.5 MG tablet TAKE 3 TABLETS BY MOUTH ONE DAY A WEEK 39 tablet 5 08/12/2020 Active Start: 06-30-2018 take 2 tablets by mo uth every week methotrexate 2.5 MG tablet Indications: [...] other malignant neoplasm of skin , Other emt intermediate (current) drug therapy , On statin therapy , Nocturia , Methotrexate, emt intermediate, current use , Long-term current use of high risk medication other than anticoagulant , History of osteomyelitis , History of malignant neoplasm of skin , Encounter for long-term (current) use of non-steroidal anti-inflammatories TAKE 2 TABLETS BY MOUTH 1 DAY WEEKLY 24 tablet 3 05/29/2025 Active Start: 06-30-2018 End: 10-26-2023 take 3 tablets by mouth every week Methotrexate Sodium 2.5 MG tablet Active 7.5 mg PO Q7D June 30, 2018 12:00am arthritis Start: 04-07-2018 End: 06-21-2019 take 3 tablets by mouth once daily methotrexate 2.5 MG tablet TAKE 3 TABLETS BY MOUTH ONE DAY A WEEK 39 tablet 5 06/21/2019 Active Start: 04-07-2018 End: 06-30-2018 Methotrexate Sodium 2.5 MG t ablet Discontinued 3 {tbl} EVERY WEEK April 07, 2018 12:00am June 30, 2018 4:08pm Start: 04-07-2018 End: 06-30-2018 take 7.5 mg by mouth every week Methotrexate Sodium Active 7.5 MG PO Q7D June 29, 2018 11:00pm Start: 11-29-2016 End: 06-21-2019 methotrexate 2.5 MG tablet METHOTREXATE 2.5 MG TABS 0 11/29/2016 06/21/2019 Discontinued Start: 11-29-2016 METHOTREXATE 2 .5 MG TABS two times a week METHOTREXATE SODIUM [id number] Maddison Quiles Start: 11-29-2016 METHOTREXATE 2 .5 MG TABS three times a week METHOTREXATE SODIUM [id number] Winnie Aguirre PA-C Multiple Vitamin (MULTIVITAM IN [...] Po Caps (1 source) Start: 08-12-2015 Multiple Vitam in (MULTIVITAMIN) Cap MULTIVITAMINS CAPS 08/12/2015 Active 24 hr oxybutynin chloride 5 mg extended release oral tablet (20 sources) Cholinergic Muscarinic Antagonist Start: 10-20-2018 End: 10-08-2019 Start: 11-29-2016 oxybutynin 5 M G Tab OXYBUTYNIN CHLORIDE 5 MG TABS 11/29/2016 Active microencapsulated potassium chloride 20 meq extended release oral tablet (20 sources) Start: 06-28-2025 Start: 06-20-2024 End: 04-15-2025 Start: 02-03-2016 End: 09-22-2018 Start: 01-17-2012 End: 05-28-2024 Start: 01-17-2012 take 1 tablet by maicol th once daily KLOR-CON M20 20 MEQ CR-TABS One tablet by mouth daily POTASSIUM CHLORIDE HENRY CR [id number] Miguelangel Walton MD Start: 03-10-2011 take 1 tablet by maicol th once daily POTASSIUM CHLORIDE 20 MEQ PACK One tablet by mouth daily POTASSIUM CHLORIDE [id number] Saima Gonzalez predniSONE 5 mg oral tablet (17 sources) [...] capsule 07/10/2024 Active Start: 11-24-2012 End: 10-08-2019 Start: 11-24-2012 take 1 tablet by maicol th once daily FLOMAX 0.4 MG CAPS One tablet by mouth daily TAMSULOSIN HCL [id number] Miguelangel Walton MD traMADol hydrochloride 50 mg [...] Actinic keratosis , Other proteinuria , Other fpc (current) drug therapy , On statin therapy , Methotrexate, fpc, current use , Nocturia , Long-term current use of high risk medication other than anticoagulant , penitentiary use of drug , Infliximab (Remicade) long-term use , History of osteomyelitis , History of malignant neoplasm of skin , Difficulty in urination , Current use of emt intermediate anticoagulation , Abnormal renal function test , [...] 10-08-2019 triamcinolone 0.1 % Ointment ointment Vit C,V-Za-Pzlba-Lutein-Zeax an (20 sources) Start: 02-20-2020 take 1 capsule by mouth once daily Vit C,J-Qx-Bqxgy-Lutein-Zeaxan Active 1 CAP PO DAILY February 20, 2020 10:34am Start: 02-20-2020 take 1 capsule by mo [facility] once daily Vit C,Y-Li-Bhwqw-Lutein-Zeaxan Active 1 CAP PO DAILY February 20, 2020 11:34am Start: 02-03-2016 End: 02-20-2020 Vit C,Q-Xn-Fwugu-Lutein-Zeax an Discontinued 1 EACH PO DAILY February 03, 2016 11:49am February 20, 2020 11:35am Start: 02-03-2016 End: 02-20-2020 Vit C,O-Cg-Runfd-Lutein-Zeax an Discontinued 1 EACH PO DAILY February 02, 2016 11:00pm February 20, 2020 10:35am Start: 02-03-2016 End: 02-20-2020 Vit C,J-Pu-Agbwg-Lutein-Zeax an Discontinued 1 EACH PO DAILY February 03, 2016 12:00am February 20, 2020 11:35am vitamin b12 0.1 mg oral tablet (20 sources) Vitamin B12 Start: 12-01-2020 take 500 ug by mouth once daily Cyanocobalamin (Vitamin B-12) Active 500 MCG PO DAILY December 01, 2020 12:07pm Start: 02-20-2020 End: 12-01-2020 Start: 02-20-2020 End: 12-01-2020 take 1 tablet by mouth once daily Cyanocobalamin (Vitamin B-12) 100 mcg tablet Discontinued 100 ug PO DAILY February 20, 2020 12:00am December 01, 2020 12:10pm Start: 08-12-2015 End: 11-12-2015 take 1 tablet by mouth once daily VITAMIN B-12 1000 MCG TABS One tablet by mouth daily CYANOCOBALAMIN [id number] Mariah Valdes vitamin b6 50 mg oral [...] One tablet by mouth daily PYRIDOXINE HCL [id number] Mariah Valdes Vitamins A,C,C-Hcsq-Ymbuep (Preservision Areds) 4,296 mcg-226 mg-90 mg capsule (8 sources) Start: 03-08-2025 Vitamins A,C,E -Zinc-Copper (Preservision Areds) 4,296 mcg-226 mg-90 mg capsule Active 1 NMA PO daily March 08, 2025 12:00am (15 sources) Start: 06-28-2025 Start: 04-17-2025 End: 06-28-2025 Start: 04-15-2025 Start: 03-08-2025 Start: 12-01-2020 End: 02-03-2022 Start: 09-24-2020 End: 12-01-2020 Start: 06-01-2019 End: 02-20-2020 Start: 06-01-2019 End: 02-20-2020 Start: 10-20-2018 End: 06-21-2025 Start: 10-20-2018 End: 06-01-2019 Start: 10-20-2018 End: 06-01-2019 Start: 06-30-2018 Start: 02-03-2016 End: 06-30-2018 Start: 02-03-2016 End: 06-01-2019 Start: 02-03-2016 End: 02-20-2020 Completed/Discontinued Medications Medication Drug Class(es) Dates Sig [...] 01/22/2019 Discontinued cefdinir 300 mg oral capsule (8 sources) Cephalosporin Antibacterial Start: 04-17-2025 End: 06-21-2025 ciprofloxacin 3 mg/ml / dexamethasone 1 mg/ml [...] by mouth four times daily CLINDAMYCIN HCL [id number] Mariah Valdes clobetasol propionate 0.5 mg/ml topical solution (14 sources) Corticosteroid Start: 07-24-2018 End: 10-26-2023 clobetasol 0.05 % Solution doxycycline hyclate 100 mg oral capsule (20 sources) Tetracycline-class Drug Start: 04-15-2025 End: 04-17-2025 Start: 09-30-2024 End: 12-25-2024 Start: 09-30-2024 End: 12-25-2024 take 1 capsule by mouth twice daily Doxycycline Hyclate 100 mg capsule Discontinued 100 mg PO TWICE A DAY 14 7 0 September 30, 2024 1:00am December 25, 2024 11:12am Start: 02-22-2022 take 100 mg by mouth twice daily Doxycycline Hyclate Active 100 MG PO TWICE A DAY February 22, 2022 12:00am Start: 05-05-2021 End: 02-03-2022 Start: 05-05-2021 End: 02-03-2022 take 1 capsule [...] One tablet by mouth daily ESCITALOPRAM OXALATE [id number] Miguelangel Walton MD ezetimibe 10 mg oral tablet (20 sources) Dietary Cholesterol Absorption Inhibitor Start: 09-22-2018 End: 10-08-2019 Start: 03-10-2011 End: 11-29-2016 take 1 tablet by mouth once daily ZETIA 10 MG TABS One tablet by mouth daily EZETIMIBE [id number] Miguelangel Walton MD fexofenadine hydrochloride 1 80 mg oral tablet (20 sources) Histamine-1 Receptor Antagonist Start: 11-29-2016 End: 07-08-2023 Start: 03-10-2011 End: 08-12-2015 take 1 tablet by mouth once daily as needed FEXOFENADINE HCL 180 MG TABS One tablet by mouth daily as needed FEXOFENADINE HCL [id number] Mariah Valdes Finerenone (Kerendia) 10 MG tablet (3 sources) Start: 02-28-2025 End: 05-30-2025 take 1 tablet by mouth once daily Finerenone (Kerendia) 10 MG tablet Take 1 tablet by mouth daily. 30 tablet 1 02/28/2025 05/30/2025 Discontinued Start: 02-28-2025 take 1 tablet by maicol once daily Finerenone (Kerendia) 10 MG tablet [...] as directed for 90 days, beginning 07/20/2018 fosinopril sodium 40 mg oral tablet (8 sources) Angiotensin Converting Enzyme Inhibitor Start: 08-11-2015 take 1 tablet by mouth once daily FOSINOPRIL SODIUM 40 MG TABS One tablet by mouth daily FOSINOPRIL SODIUM [id number] Mariah Valdes Start: 03-10-2011 End: 07-31-2015 take 1 tablet by mouth once daily FOSINOPRIL SODIUM 40 MG TABS One tablet by mouth daily FOSINOPRIL SODIUM [id number] Mariah Valdes furosemide 20 mg oral tablet (20 sources) Loop Diuretic Start: 10-29-2024 End: 06-21-2025 Start: 09-22-2018 End: 01-22-2019 take 1 tablet by mouth once daily furOSEmide 40 MG Tab tablet Take 40 mg by mouth daily. 6 09/22/2018 01/22/2019 Discontinued glipiZIDE 10 mg oral tablet (20 sources) Sulfonylurea Start: 04-21-2020 End: 06-20-2024 hydrALAZINE hydrochloride 25 mg oral tablet (8 sources) Arteriolar Vasodilator Start: 04-17-2025 End: 06-21-2025 hydroCHLOROthiazide 12.5 mg oral capsule (20 sources) Thiazide Diuretic Start: 03-08-2025 End: 04-17-2025 Start: 05-08-2024 hydroCHLOROthi azide 12.5 MG tablet 05/08/2024 Active Start: 03-10-2011 End: 01-25-2025 lactulose 667 mg/ml oral gaby ution (8 sources) Osmotic Laxative Start: 04-15-2025 End: 06-21-2025 levoFLOXacin 500 mg oral tab let (20 sources) Quinolone Antimicrobial Start: 04-24-2020 End: 05-30-2020 Start: 05-09-2017 End: 10-03-2017 take 1 tablet by mouth once daily LEVAQUIN 500 MG TABS One tablet by mouth daily times 10 days LEVOFLOXACIN [id number] Maddison Quiles Start: 01-16-2016 End: 05-31-2016 take 1 tablet by mouth once daily LEVAQUIN 500 MG TABS One tablet by mouth daily LEVOFLOXACIN [id number] Miguelangel Walton MD Start: 08-25-2015 End: 09-15-2015 take 1 tablet by mouth once LEVAQUIN 500 MG TABS one p o q 24 LEVOFLOXACIN [id number] Alyx Blue MD Start: 08-11-2015 End: 08-25-2015 take 1 tablet by mouth once daily LEVAQUIN 750 MG TABS One tablet by mouth daily LEVOFLOXACIN [id number] Mariah Valdes lisinopril 40 mg oral tablet (20 sources) Angiotensin Converting Enzyme Inhibitor Start: 07-31-2015 End: 04-17-2025 lovastatin 40 mg oral tablet (10 sources) HMG-CoA Reductase Inhibitor Start: 08-12-2015 take 1 tablet by mouth once daily LOVASTATIN 40 MG TABS One tablet by mouth daily LOVASTATIN [id number] Mariah Moraleslachika Start: 03-10-2011 End: 01-17-2012 take 1 tablet by mouth once daily LOVASTATIN 10 MG TABS One tablet by mouth daily Brittney (STOP) LOVASTATIN [id number] Saimatom Gonzalez Start: 03-10-2011 End: 01-17-2012 take 1 tablet by mouth once daily LOVASTATIN 40 MG TABS One tablet by mouth daily LOVASTATIN [id number] Mariah Valdes magnesium citrate 58.2 mg/ml oral solution (20 sources) Start: 07-20-2021 End: 02-03-2022 Start: 07-20-2021 End: 02-03-2022 take 1 mL [...] (20 sources) Biguanide Start: 01-14-2014 End: 04-15-2025 Start: 01-14-2014 End: 10-08-2019 take 1 tablet by mouth twice daily METFORMIN HCL 850 MG TABS One tablet by mouth twice daily METFORMIN HCL [id number] Miguelangel Walton MD Start: 11-24-2012 take 1 tablet by maicol twice daily METFORMIN HCL ER 750 MG [id number] One tablet by mouth twice daily METFORMIN HCL [id number] Miguelangel Walton MD Start: 03-10-2011 take 1 tablet by maicol th twice daily METFORMIN HCL 500 MG TABS One tablet by mouth twice daily METFORMIN HCL [id number] Saima Gonzalez take 1 tablet by maicol th every twenty-four hours metFORMIN XR (Glucophage-XR) 750 MG 24 hr tablet Take 1,000 mg by mouth. Active 24 hr metoprolol succinate 1 00 mg extended release oral tablet (20 sources) beta-Adrenergic Justino Start: 10-21-2011 End: 06-21-2025 Start: 03-10-2011 End: 06-21-2025 take 1 tablet [...] tablet by mouth three times daily METRONIDAZOLE [id number] Mariah Rudy Moraleslar MULTIPLE VITAMIN (2 sources) Start: 08-12-2015 take 1 tablet by mouth once daily MULTIVITAMINS CAPS One tablet by mouth daily MULTIPLE VITAMIN [id number] Mariah E Tullar Multiple Vitamin (MULTIVITAMIN) Cap [...] One tablet by mouth daily MULTIPLE VITAMINS-MINERALS [id number] Merrill H Roof MECHANICAL TECHNICAL SERVICE SPECIALIST Multiple Vitamins-Minerals (KP VISION FORMULA) Tab (6 [...] Nonsteroidal Anti-inflammatory Drug Start: 09-24-2020 End: 05-28-2024 Start: 09-24-2020 End: 05-28-2024 Naproxen Sodium 220 MG capsu le Discontinued 220 mg PO NEEDED as needed for Pain 1-10 Or Fever September 24, 2020 1:00am May 28, 2024 3:47pm ondansetron 4 mg disintegrat ing oral tablet (20 sources) Serotonin-3 Receptor Antagonist Start: 09-30-2024 End: 12-25-2024 Start: 07-20-2021 End: 02-03-2022 pravastatin sodium 40 mg oral tablet (20 sources) HMG-CoA Reductase Inhibitor Start: 10-20-2018 End: 06-01-2019 take 2 tablets by mouth once daily Pravastatin Sodium 20 MG tablet Discontinued 40 mg PO DAILY October 20, 2018 1:00am June 01, 2019 3:13pm Start: 11-29-2016 End: 05-15-2025 raNITIdine 150 mg oral tablet (20 sources) [...] tablet (20 sources) Nonsteroidal Anti-inflammatory Drug Start: 11-11-2023 End: 01-25-2025 take 1 mg by mouth [...] other malignant neoplasm of skin , Other fpc (current) drug therapy , On statin therapy , Nocturia , Methotrexate, fpc, current use , Long-term current use of [...] sources) beta-Adrenergic Justino Start: 10-20-2018 End: 06-20-2024 Start: 10-20-2018 End: 06-20-2024 Timolol Maleate 1 [...] each eye twice a day TIMOLOL MALEATE [id number] 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 anti-inflammatories (NSAID)] Onset: 7 Episodic Other aftercare (20 sources) H/O: high risk medication; Translations: [Other emt intermediate (current) drug therapy] 10-29-2017 Episodic Other aftercare (3 sources) Long-term 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; Translations: [Other emt intermediate (current) drug therapy] Episodic Other circulatory disease (14 sources) Raynaud's phenomenon; Translations: [Raynaud's syndrome without [...] injuries and conditions due to external causes (10 sources) Open wound; Translations: [Other injury of unspecified body region, initial encounter] 03-18-2021 Episodic Other lower respiratory disease (20 sources) Dyspnea; Translations: [Shortness of breath] 10-29-2017 Episodic Other non-traumatic joint disorders (10 sources) Unstable knee; Translations: [Other instability, unspecified [...] the skin and subcutaneous tissue, unspecified] Onset: 5 Episodic Other upper respiratory disease (20 sources) Frontal sinus pain; Translations: [Other specified disorders of nose and nasal sinuses] 04-27-2021 Episodic Pancreatic disorders (not diabetes) (2 sources) Pancreatic duct calculus; Translations: [Other specified diseases [...] (2 sources) Long-term drug therapy; Translations: [Other emt intermediate (current) drug therapy] Onset: 1 03-10-2011 Unclassified (7 sources) Drug indicated; Translations: [Other emt intermediate (current) drug therapy] 09-25-2018 Unclassified (13 sources) Patient encounter status; Translations: [Encounter for long-term (current) use of non-steroidal anti-inflammatories] Onset: 7 08-29-2017 Unclassified (2 sources) Long-term 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; Translations: [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] Unclassified (2 sources) [facility]iary (current) use of antimetabolite agent; Translations: [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 (current) use of antimetabolite agent] Onset: 7 Unclassified (2 sources) penitentiary (current) use of immunosuppressive biologic; Translations: [penitentiary (current) use of immunosuppressive biologic] Onset: 3 [...] 5 08-14-2015 Episodic Other aftercare (20 sources) 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; Translations: [Other emt intermediate (current) drug therapy] Onset: 7 08-29-2017 Episodic Other aftercare (20 sources) Long-term current use of drug therapy; Translations: [Other emt intermediate (current) drug therapy] Onset: 5 Episodic Other aftercare (20 sources) Drug therapy finding; Translations: [Other fpc (current) drug therapy] Onset: 7 Episodic Other aftercare (12 sources) Long-term current use of antibiotic; Translations: [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] Onset: 1 Resolved: 2 Episodic Other aftercare (11 sources) Drug indicated; Translations: [Infliximab (Remicade) long-term use] Onset: 3 07-04-2023 Episodic Other aftercare (6 sources) Long-term current use of anticoagulant; Translations: [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 (current) use of anticoagulants] Onset: 5 01-25-2025 Episodic Other aftercare (5 sources) 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 current use of non-steroidal anti-inflammatory drug; Translations: [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 (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) use of non-steroidal anti-inflammatories (NSAID)] Onset: 7 Resolved: 5 01-25-2025 Episodic Other aftercare (2 sources) Other emt intermediate (current) drug therapy; Translations: [Other emt intermediate (current) drug therapy] Onset: 5 Episodic Other aftercare (3 sources) 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 (current) use of anticoagulants; Translations: [penitentiary (current) use of anticoagulants] Onset: 5 Episodic Other aftercare (2 sources) penitentiary (current) use of non-steroidal anti-inflammatories (NSAID); Translations: [penitentiary (current) use of non-steroidal anti-inflammatories (nsaid)] Onset: [...] current use of drug therapy; Translations: [Other emt intermediate (current) drug therapy] 09-25-2018 Unclassified (1 source) Seborrheic keratosis 01-25-2025 Unclassified (1 source) 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 Anion gap in Serum or Plasma Ordered By: Miguelangel Velasquez on 06-28-2025 Anion gap [Moles/Vol] 12 mmol/L 5- [facility] Automated lymphocyte count a s percentage of total leukocytesOrdered By: Miguelangel Velasquez on 06-28-2025 Lymphocytes/100 WBC Auto (Unsp spec) 19.3 % 19-41 [facility] BUN/creatinine ratioOrdered By: Miguelangel Velasquez on 06-28-2025 Urea nitrogen/Creatinine [Mass ratio] 14.7 mg/mg 10-20 [facility] Basophil percentageOrdered B y: Miguelangel Velasquez on 06-28-2025 Basophils/100 WBC (Bld) 0.4 % 0-1 [facility] Bilirubin Test strip Ql (U)O rdered By: Coco Beaver on 06-28-2025 Bilirubin Ql (U) Negative Negative [facility] Bilirubin, totalOrdered By: Miguelangel Velasquez on 06-28-2025 Bilirubin [Mass/Vol] 0.63 mg/dL 0.00-1.30 [facility] Carbon dioxide, total [Moles /volume] in Central venous bloodOrdered By: Miguelangel Velasquez on 06-28-2025 CO2 [Moles/Vol] 21.5 mmol/L 21.0-32.0 [facility] Chloride assayOrdered By: Angela Velasquez on 06-28-2025 Chloride [Moles/Vol] 102 mmol/L 98-108 [facility] Eosinophil percentageOrdered By: Miguelangel Velasquez on 06-28-2025 Eosinophils/100 WBC (Bld) 8.0 % High 0-5 [facility] Erythrocyte distribution wid th ratioOrdered By: Miguelangel Velasquez on 06-28-2025 Erythrocyte distribution width (RBC) [Ratio] 13.0 % 11.6-14.6 [facility] Erythrocyte distribution wid th standard deviationOrdered By: Miguelangel Velasquez on 06-28-2025 Erythrocyte distribution width (RBC) [Ratio] 41.9 fl 35.1-43.9 [facility] Glomerular filtration rate ( GFR) estimation/1.73 sq m using serum, plasma, or whole bOrdered By: Miguelangel Velasquez on 06-28-2025 GFR/1.73 sq M.predicted among non-blacks MDRD (S/P/Bld) [Vol rate/Area] 46 mL/min/{1.73_m2} Low >60 [facility] Hematocrit Auto (Bld) [Volum e fraction]Ordered By: Miguelangel Velasquez on 06-28-2025 Hematocrit (Bld) [Volume fraction] 37.6 % Low 40-54 [facility] Hemoglobin measurementOrdere d By: Miguelangel Velasquez on 06-28-2025 Hemoglobin (Bld) [Mass/Vol] 13.5 g/dL 13.0-16.5 [facility] Immature granulocytes/100 WB C Auto (Bld)Ordered By: Miguelangel Velasquez on 06-28-2025 Immature granulocytes/100 WBC (Bld) 0.300 % 0.0-0.9 [facility] Ketones Test strip Ql (U)Ord ered By: Coco Beaver on 06-28-2025 Ketones Ql (U) Negative Negative [facility] MCV (mean corpuscular volume ) determinationOrdered By: Miguelangel Velasquez on 06-28-2025 MCV (RBC) [Entitic vol] 91.7 fL 80-94 [facility] Mean corpuscular hemoglobin (MCH) determinationOrdered By: Miguelangel Velasquez on 06-28-2025 MCH (RBC) [Entitic mass] 32.9 pg High 27.0-32.0 [facility] Monocyte percentageOrdered B y: Miguelangel Velasquez on 06-28-2025 Monocytes/100 WBC (Bld) 10.7 % High 0-10 [facility] Neutrophil percentageOrdered By: Miguelangel Velasquez on 06-28-2025 Neutrophils/100 WBC (Bld) 61.3 % 47-70 [facility] Nitrite Test strip Ql (U)Ord ered By: Coco Beaver on 06-28-2025 Nitrite Ql (U) Negative Negative [facility] No Panel InformationOrdered By: Miguelangel Velasquez on 06-28-2025 45 U/L High <38 [facility] Platelet countOrdered By: Angela Velasquez on 06-28-2025 Platelets (Bld) [#/Vol] 233 10*3/uL 150-450 [facility] Potassium measurement (mass/ volume)Ordered By: Miguelangel Velasquez on 06-28-2025 Potassium (Unsp spec) [Mass/Vol] 3.9 mmol/L 3.3-5.1 [facility] Protein Test strip Ql (U)Ord ered By: Coco Beaver on 06-28-2025 Protein Ql (U) 30 mg/dl High Negative [facility] RBC Auto (Bld) [#/Vol]Ordere d By: Miguelangel Velasquez on 06-28-2025 RBC (Bld) [#/Vol] 4.10 10*6/uL Low 4.6-6.2 [facility] Serum creatinine measurement (mass/volume)Ordered By: Miguelangel Velasquez on 06-28-2025 Creatinine [Mass/Vol] 1.50 mg/dL High 0.70-1.20 [facility] Serum globulin measurementOr dered By: Miguelangel Velasquez on 06-28-2025 Globulin (S) [Mass/Vol] 3.4 g/dL 2.2-4.2 [facility] Serum glucose measurement (m ass/volume)Ordered By: Miguelangel Velasquez on 06-28-2025 Glucose [Mass/Vol] 230 mg/dL High 70-99 [facility] Serum or plasma alanine pham otransferase (ALT) measurementOrdered By: Miguelangel Velasquez on 06-28-2025 ALT [Catalytic activity/Vol] 64 U/L High <47 [facility] Serum or plasma albumin amadou urement (mass/volume)Ordered By: Miguelangel Velasquez on 06-28-2025 Albumin [Mass/Vol] 3.9 g/dL 3.4-4.8 [facility] Serum or plasma albumin/glob ulin mass ratioOrdered By: Miguelangel Velasquez on 06-28-2025 Albumin/Globulin [Mass ratio] 1.2 {ratio} 0.9-2.4 [facility] Serum or plasma alkaline jovana sphatase measurementOrdered By: Miguelangel Velasquez on 06-28-2025 ALP [Catalytic activity/Vol] 93 U/L 40-129 [facility] Serum or plasma calcium amadou urement (mass/volume)Ordered By: Miguelangel Velasquez on 06-28-2025 Calcium [Mass/Vol] 10.1 mg/dL 7.6-11.0 [facility] Serum or plasma urea nitroge n measurement (mass/volume)Ordered By: Miguelangel Velasquez on 06-28-2025 Urea nitrogen [Mass/Vol] 22 mg/dL High 4-19 [facility] Sodium levelOrdered By: Miguelangel Velasquez on 06-28-2025 Sodium [Moles/Vol] 136 mmol/L 133-145 [facility] Total proteinOrdered By: Fang Velasquez on 06-28-2025 Protein [Mass/Vol] 7.3 g/dL 5.9-8.4 [facility] Urine clarityOrdered By: Santino Beaver on 06-28-2025 Clarity (U) Clear Clear [facility] Urine color determinationOrd ered By: Coco Beaver on 06-28-2025 Color (U) Straw Yellow [facility] Urine glucose detectionOrder ed By: Coco Beaver on 06-28-2025 Glucose Ql (U) 1000 mg/dl High Normal [facility] Urine leukocyte esterase det ection by dipstickOrdered By: Coco Beaver on 06-28-2025 Leukocyte esterase Test strip Ql (U) Negative Negative [facility] Urine pHOrdered By: Coco rosenberg on 06-28-2025 pH (U) 6.0 [pH] 5.0 - 8.0 [facility] Urine specific gravity measu rementOrdered By: Coco Beaver on 06-28-2025 Specific gravity (U) [Rel density] 1.010 1.002-1.030 [facility] Urine urobilinogen measureme ntOrdered By: Coco Beaver on 06-28-2025 Urobilinogen Ql (U) Normal mg/dl Normal [facility] White blood cell (WBC) count Ordered By: Miguelangel Velasquez on 06-28-2025 WBC (Bld) [#/Vol] 7.4 10*3/uL 4.4-11.0 [facility] Abdomen/Pelvis W IV Cont ONL Yon 06-21-2025 Abdomen/Pelvis W IV Cont ONLY Normal [facility] Absolute lymphocyte countOrd ered By: Edgar Gudino on 06-21-2025 Lymphocytes Auto (Unsp spec) [#/Vol] 1.01 10*3/uL 0.83-4.51 [facility] Absolute neutrophil countOrd ered By: Edgar Gudino on 06-21-2025 Neutrophils (Bld) [#/Vol] 9.7 10*3/uL High 2.0-7.7 [facility] Anion gap in Serum or Plasma Ordered By: Edgar Gudino on 06-21-2025 Anion gap [Moles/Vol] 15 mmol/L 5-15 [facility] Automated lymphocyte count a s percentage of total leukocytesOrdered By: Edgar Gudino on 06-21-2025 Lymphocytes/100 WBC Auto (Unsp spec) 8.8 % Low 19-41 [facility] BUN/creatinine ratioOrdered By: Edgar Gudino on 06-21-2025 Urea nitrogen/Creatinine [Mass ratio] 22.6 mg/mg High 10-20 [facility] Basophil percentageOrdered B y: Edgar Gudino on 06-21-2025 Basophils/100 WBC (Bld) 0.3 % 0-1 [facility] Bilirubin Test strip Ql (U)O rdered By: Edgar Gudino on 06-21-2025 Bilirubin Ql (U) Negative Negative [facility] Bilirubin, totalOrdered By: Edgar Gudino on 06-21-2025 Bilirubin [Mass/Vol] 1.03 mg/dL 0.00-1.30 [facility] CBC W/Diff, Automatedon Absolute Lymph 1.01 X10 3/uL Normal 0.83-4.51 [facility] Comment on above: Performed By: #### L 100.0100, M100.7900 ####[facility] [address] [place], [address] Absolute Neut 9.7 X10 3/uL High 2.0-7.7 [facility] Comment on above: Performed By: #### L 100.0100, M100.7900 ####[facility] [address] [place], [address] Basophils/100 WBC (Bld) 0.3 % Normal 0-1 [facility] Comment on above: Performed By: #### L 100.0100, M100.7900 ####[facility] [address] [place], [address] Eosinophils/100 WBC (Bld) 0.7 % Normal 0-5 [facility] Comment on above: Performed By: #### L 100.0100, M100.7900 ####[facility] [address] [place], [address] Erythrocyte distribution width (RBC) [Ratio] 12.7 % Normal 11.6-14.6 [facility] Comment on above: Performed By: #### L 100.0100, M100.7900 ####[facility] [address] [place], [address] Hematocrit (Bld) [Volume fraction] 43.5 % Normal 40-54 [facility] Comment on above: Performed By: #### L 100.0100, M100.7900 ####[facility] [address] [place], [address] Hemoglobin (Bld) [Mass/Vol] 15.7 g/dL Normal 13.0-16.5 [facility] Comment on above: Performed By: #### L 100.0100, M1.7900 ####[facility] [address] [place], [address] IG% 0.300 Normal 0.0-0.9 [facility] Comment on above: Result Comment: IG% - Immature Granulocytes (promyelocytes, myelocytes andmetamyelocytes) > 1% indicates that a LEFT SHIFT is Present. Performed By: #### L 100.0100, M1.7900 ####[facility] [address] [place], [address] Lymphocytes/100 WBC (Bld) 8.8 % Low 19-41 [facility] Comment on above: Performed By: #### L 100.0100, M1.7900 ####[facility] [address] [place], [address] MCH (RBC) [Entitic mass] 33.9 pg High 27.0-32.0 [facility] Comment on above: Performed By: #### L 100.0100, M1.7900 ####[facility] [address] [place], [address] MCHC (RBC) [Mass/Vol] 36.1 g/dL High 32-36 [facility] Comment on above: Performed By: #### L 100.0100, M100.7900 ####[facility] [address] [place], [address] MCV (RBC) [Entitic vol] 94.0 fL Normal 80-94 [facility] Comment on above: Performed By: #### L 100.0100, M100.7900 ####[facility] [address] [place], [address] Monocytes/100 WBC (Bld) 5.6 % Normal 0-10 [facility] Comment on above: Performed By: #### L 100.0100, M100.7900 ####[facility] [address] [place], [address] Neutrophils/100 WBC (Bld) 84.3 % High 47-70 [facility] Comment on above: Performed By: #### L 100.0100, M100.7900 ####[facility] [address] [place], [address] Nucleated RBC (Bld) [#/Vol] 0 10*3/uL Normal 0-5 [facility] Comment on above: Performed By: #### L 100.0100, M100.7900 ####[facility] [address] [place], [address] Platelet mean volume (Bld) [Entitic vol] 10.5 fL Normal 6.2-12.0 [facility] Comment on above: Performed By: #### L 100.0100, M100.7900 ####[facility] [address] [place], [address] Platelets (Bld) [#/Vol] 234 10*3/uL Normal 150-450 [facility] Comment on above: Performed By: #### L 100.0100, M100.7900 ####[facility] [address] [place], [address] RBC (Bld) [#/Vol] 4.63 10*6/uL Normal 4.6-6.2 [facility] Comment on above: Performed By: #### L 100.0100, M100.7900 ####[facility] [address] [place], [address] RDW SD 41.9 fl Normal 35.1-43.9 [facility] Comment on above: Performed By: #### L 100.0100, M100.7900 ####[facility] [address] [place], [address] WBC (Bld) [#/Vol] 11.5 10*3/uL High 4.4-11.0 [facility] Comment on above: Performed By: #### L 100.0100, M100.7900 ####[facility] [address] [place], [address] Carbon dioxide, total [Moles /volume] in Central venous bloodOrdered By: Edgar Gudino on 06-21-2025 CO2 [Moles/Vol] 19.1 mmol/L Low 21.0-32.0 [facility] Chloride assayOrdered By: Candelario Gudino on 06-21-2025 Chloride [Moles/Vol] 101 mmol/L 98-108 [facility] Comprehensive Metabolic Prof ilon 06-21-2025 Albumin [Mass/Vol] 4.5 g/dL Normal 3.4-4.8 [facility] Comment on above: Performed By: #### L 503.6005, L501.2450, L500.4050 ####[facility] [address] [place], [address] Albumin/Globulin [Mass ratio] 1.2 {ratio} Normal 0.9-2.4 [facility] Comment on above: Performed By: #### L 503.6005, L501.2450, L500.4050 ####[facility] [address] [place], [address] ALK PHOS 98 U/L Normal 40-129 [facility] Comment on above: Performed By: #### L 503.6005, L501.2450, L500.4050 ####[facility] [address] [place], [address] ALT [Catalytic activity/Vol] 69 U/L High <=46 [facility] Comment on above: Performed By: #### L 503.6005, L501.2450, L500.4050 ####[facility] [address] [place], [address] AST [Catalytic activity/Vol] 55 U/L High <=37 [facility] Comment on above: Performed By: #### L 503.6005, L501.2450, L500.4050 ####[facility] [address] [place], [address] Bilirubin [Mass/Vol] 1.03 mg/dL Normal 0.00-1.30 [facility] Comment on above: Performed By: #### L 503.6005, L501.2450, L500.4050 ####[facility] [address] [place], [address] BUN/CRE 22.6 RATIO High 10-20 [facility] Comment on above: Performed By: #### L 503.6005, L501.2450, L500.4050 ####[facility] [address] [place], [address] Calcium [Mass/Vol] 11.2 mg/dL High 7.6-11.0 [facility] Comment on above: Performed By: #### L 503.6005, L501.2450, L500.4050 ####[facility] [address] [place], [address] Chloride [Moles/Vol] 101 mmol/L Normal 98-108 [facility] Comment on above: Performed By: #### L 503.6005, L501.2450, L500.4050 ####[facility] [address] [place], [address] CO2 [Moles/Vol] 19.1 mmol/L Low 21.0-32.0 [facility] Comment on above: Performed By: #### L 503.6005, L501.2450, L500.4050 ####[facility] [address] [place], [address] Creatinine [Mass/Vol] 1.92 mg/dL High 0.70-1.20 [facility] Comment on above: Performed By: #### L 503.6005, L501.2450, L500.4050 ####[facility] [address] [place], [address] ECRCL 33.12 ml/min Low 50-250 [facility] Comment on above: Performed By: #### L 503.6005, L501.2450, L500.4050 ####[facility] [address] [place], [address] GAP 15 Normal 5-15 [facility] Comment on above: Performed By: #### L 503.6005, L501.2450, L500.4050 ####[facility] [address] [place], [address] GFR/1.73 sq M.predicted among non-blacks MDRD (S/P/Bld) [Vol rate/Area] 35 mL/min/{1.73_m2} Low >60 [facility] Comment on above: Result Comment: mL/m in/1.73m2 CKD-EPI Creatinine Equation (2020) Performed By: #### L 503.6005, L501.2450, L500.4050 ####[facility] [address] [place], [address] Globulin (S) [Mass/Vol] 3.9 g/dL Normal 2.2-4.2 [facility] Comment on above: Performed By: #### L 503.6005, L501.2450, L500.4050 ####[facility] [address] [place], [address] Glucose [Mass/Vol] 202 mg/dL High 70-99 [facility] Comment on above: Performed By: #### L 503.6005, L501.2450, L500.4050 ####[facility] [address] [place], [address] Potassium [Moles/Vol] 4.8 mmol/L Normal 3.3-5.1 [facility] Comment on above: Performed By: #### L 503.6005, L501.2450, L500.4050 ####[facility] [address] [place], [address] Sodium [Moles/Vol] 135 mmol/L Normal 133-145 [facility] Comment on above: Performed By: #### L 503.6005, L501.2450, L500.4050 ####[facility] [address] [place], [address] T PROT 8.4 g/dL Normal 5.9-8.4 [facility] Comment on above: Performed By: #### L 503.6005, L501.2450, L500.4050 ####[facility] [address] [place], [address] Urea nitrogen [Mass/Vol] 43 mg/dL High 4-19 [facility] Comment on above: Performed By: #### L 503.6005, L501.2450, L500.4050 ####[facility] [address] [place], [address] Emergency Department Summary on 06-21-2025 Emergency [address] Normal [facility] Eosinophil percentageOrdered By: Edgar Gudino on 06-21-2025 Eosinophils/100 WBC (Bld) 0.7 % 0-5 [facility] Erythrocyte distribution wid th ratioOrdered By: Edgar Gudino on 06-21-2025 Erythrocyte distribution width (RBC) [Ratio] 12.7 % 11.6-14.6 [facility] Erythrocyte distribution wid th standard deviationOrdered By: Edgar Manning on 06-21-2025 Erythrocyte distribution width (RBC) [Ratio] 41.9 fl 35.1-43.9 [facility] Glomerular filtration rate ( GFR) estimation/1.73 sq m using serum, plasma, or whole bOrdered By: Edgar Gudino on 06-21-2025 GFR/1.73 sq M.predicted among non-blacks MDRD (S/P/Bld) [Vol rate/Area] 35 mL/min/{1.73_m2} Low >60 [facility] Comment on above: mL/min/1.73m2 CKD-EP I Creatinine Equation (2020) Hematocrit Auto (Bld) [Volum e fraction]Ordered By: Edgar Gudino on 06-21-2025 Hematocrit (Bld) [Volume fraction] 43.5 % 40-54 [facility] Hemoglobin measurementOrdere d By: Edgar Gudino on 06-21-2025 Hemoglobin (Bld) [Mass/Vol] 15.7 g/dL 13.0-16.5 [facility] Immature granulocytes/100 WB C Auto (Bld)Ordered By: Edgar Gudino on 06-21-2025 Immature granulocytes/100 WBC (Bld) 0.300 % 0.0-0.9 [facility] Comment on above: IG% - Immature Granu locytes (promyelocytes, myelocytes and metamyelocytes) > 1% indicates that a LEFT SHIFT is Present. Ketones Test strip Ql (U)Ord ered By: Edgar Gudino on 06-21-2025 Ketones Ql (U) Negative Negative [facility] [facility] - Chemistry and C hemistry - challengeOrdered By: Edgar Gudino on 06-21-2025 AST [Catalytic activity/Vol] 55 U/L High <38 [facility] Lactic Acidon 06-21-2025 Lactate [Moles/Vol] 1.5 mmol/L Normal 0.0-2.0 [facility] Comment on above: Order Comment: Y Performed By: #### L 503.6005, L501.2450, L500.4050 ####[facility] [address] [place], [address] Lactic acid measurementOrder ed By: Edgar Gudino on 06-21-2025 Lactate [Moles/Vol] 1.5 mmol/L 0.0-2.0 [facility] Lipase measurementOrdered By : Edgar Gudino on 06-21-2025 Lipase [Catalytic activity/Vol] 450 U/L High 13-75 [facility] Comment on above: Please note:LIPASE r evised reference range effective 23. New Lipase methodology. Expected to produce lower values than the previous assay method. NEW Reference Range: 13 - 75 U/L Result Comment: Plea se note:LIPASE revised reference range effective 23.New Lipase methodology. Expected to produce lower valuesthan the previous assay method.NEW Reference Range: 13 - 75 U/L Performed By: #### L 503.6005, L501.2450, L500.4050 ####[facility] [address] [place], [place], [address] MCV (mean corpuscular volume ) determinationOrdered By: Edgar Gudino on 06-21-2025 MCV (RBC) [Entitic vol] 94.0 fL 80-94 [facility] Mean corpuscular hemoglobin (MCH) determinationOrdered By: Edgar Gudino on 06-21-2025 MCH (RBC) [Entitic mass] 33.9 pg High 27.0-32.0 [facility] Mean corpuscular hemoglobin concentration (MCHC) determinationOrdered By: Edgar Gudino on 06-21-2025 MCHC (RBC) [Mass/Vol] 36.1 g/dL High 32-36 [facility] Mean platelet volume determi nationOrdered By: Edgar Gudino on 06-21-2025 Platelet mean volume (Bld) [Entitic vol] 10.5 fL 6.2-12.0 [facility] Microscopic analysis of urin e for red blood cells (RBC)Ordered By: Edgar Gudino on 06-21-2025 Microscopic analysis of urine for red blood cells (RBC) 0-5 SEEN /hpf 0-5 [facility] Monocyte percentageOrdered B y: Edgar Gudino on 06-21-2025 Monocytes/100 WBC (Bld) 5.6 % 0-10 [facility] Mucus LM Ql (Urine sed)Order ed By: Edgar Gudino on 06-21-2025 Mucus Ql (Urine sed) 0 SEEN /hpf [facility] Neutrophil percentageOrdered By: Edgar Gudino on 06-21-2025 Neutrophils/100 WBC (Bld) 84.3 % High 47-70 [facility] Nitrite Test strip Ql (U)Ord ered By: Edgar Gudino on 06-21-2025 Nitrite Ql (U) Negative Negative [facility] No Panel InformationOrdered By: Edgar Gudino on 06-21-2025 55 U/L High <38 [facility] Nucleated red blood cell per centageOrdered By: Edgar Gudino on 06-21-2025 Nucleated RBC/100 WBC (Bld) [Ratio] 0 % 0-5 [facility] Platelet countOrdered By: Candelario wintersl Shahab on 06-21-2025 Platelets (Bld) [#/Vol] 234 10*3/uL 150-450 [facility] Potassium measurement (mass/ volume)Ordered By: Edgar Gudino on 06-21-2025 Potassium (Unsp spec) [Mass/Vol] 4.8 mmol/L 3.3-5.1 [facility] Protein Test strip Ql (U)Ord ered By: Edgar Gudino on 06-21-2025 Protein Ql (U) 30 mg/dl High Negative [facility] RBC Auto (Bld) [#/Vol]Ordere d By: Edgar Gudino on 06-21-2025 RBC (Bld) [#/Vol] 4.63 10*6/uL 4.6-6.2 [facility] Serum creatinine measurement (mass/volume)Ordered By: Edgar Gudino on 06-21-2025 Creatinine [Mass/Vol] 1.92 mg/dL High 0.70-1.20 [facility] Serum globulin measurementOr dered By: Edgar Gudino on 06-21-2025 Globulin (S) [Mass/Vol] 3.9 g/dL 2.2-4.2 [facility] Serum glucose measurement (m ass/volume)Ordered By: Edgar Gudino on 06-21-2025 Glucose [Mass/Vol] 202 mg/dL High 70-99 [facility] Serum or plasma alanine pham otransferase (ALT) measurementOrdered By: Edgar Gudino on 06-21-2025 ALT [Catalytic activity/Vol] 69 U/L High <47 [facility] Serum or plasma albumin amadou urement (mass/volume)Ordered By: Edgar Manning on 06-21-2025 Albumin [Mass/Vol] 4.5 g/dL 3.4-4.8 [facility] Serum or plasma albumin/glob ulin mass ratioOrdered By: Edgar Gudino on 06-21-2025 Albumin/Globulin [Mass ratio] 1.2 {ratio} 0.9-2.4 [facility] Serum or plasma alkaline jovana sphatase measurementOrdered By: Edgar Gudino on 06-21-2025 ALP [Catalytic activity/Vol] 98 U/L 40-129 [facility] Serum or plasma calcium amadou urement (mass/volume)Ordered By: Edgar Manning on 06-21-2025 Calcium [Mass/Vol] 11.2 mg/dL High 7.6-11.0 [facility] Serum or plasma urea nitroge n measurement (mass/volume)Ordered By: Edgar Gudino on 06-21-2025 Urea nitrogen [Mass/Vol] 43 mg/dL High 4-19 [facility] Sodium levelOrdered By: Aly Gudino on 06-21-2025 Sodium [Moles/Vol] 135 mmol/L 133-145 [facility] Squamous epithelial cells de tection in urine sediment by light microscopyOrdered By: Edgar Gudino on 06-21-2025 Epithelial cells.squamous LM Ql (Urine sed) 0-5 SEEN /hpf 0-5 [facility] Stool Occult Blood iFOBon STOB Positive Normal [facility] Comment on above: Performed By: #### L 100.0100, M100.7900 ####[facility] [address] [place], [place], [phone] Stool gastrointestinal hemog lobin detection by immunologic methodOrdered By: Edgar Gudino on 06-21-2025 Lower GI hemoglobin IA Ql (Stl) Positive Abnormal [facility] Total proteinOrdered By: Pj Gudino on 06-21-2025 Protein [Mass/Vol] 8.4 g/dL 5.9-8.4 [facility] Urinalysis, Completeon 06-21 EPI,SQUAMOUS 0-5 SEEN Normal 0-5 [facility] Comment on above: Order Comment: CLEAN CATCH Performed By: #### L 400.0001 ####[facility] [address] [place], [address] RBC 0-5 SEEN Normal 0-5 [facility] Comment on above: Order Comment: CLEAN CATCH Performed By: #### L 400.0001 ####[facility] [address] [place], [address] WBC 0-5 SEEN Normal 0-5 [facility] Comment on above: Order Comment: CLEAN CATCH Performed By: #### L 400.0001 ####[facility] [address] [place], [address] BACTERIA 0 SEEN Normal None Seen [facility] Comment on above: Order Comment: CLEAN CATCH Performed By: #### L 400.0001 ####[facility] [address] [place], [address] Mucus Ql (Urine sed) 0 SEEN Normal [facility] Comment on above: Order Comment: CLEAN CATCH Performed By: #### L 400.0001 ####[facility] [address] [place], [address] Urine clarityOrdered By: Pj Gudino on 06-21-2025 Clarity (U) Clear Clear [facility] Urine color determinationOrd ered By: Edgar Gudino on 06-21-2025 Color (U) Yellow Yellow [facility] Urine glucose detectionOrder ed By: Edgar Gudino on 06-21-2025 Glucose Ql (U) 1000 mg/dl High Normal [facility] Urine leukocyte esterase det ection by dipstickOrdered By: Edgar Gudino on 06-21-2025 Leukocyte esterase Test strip Ql (U) Negative Negative [facility] Urine pHOrdered By: Edgar Grissom on 06-21-2025 pH (U) 5.0 [pH] 5.0 - 8.0 [facility] Urine sediment bacteria coun t by microscopy (number/high power field)Ordered By: Edgar Gudino on 06-21-2025 Bacteria LM.HPF (Urine sed) [#/Area] 0 /[HPF] None Seen [facility] Urine specific gravity measu rementOrdered By: Edgar Gudino on 06-21-2025 Specific gravity (U) [Rel density] 1.020 1.002-1.030 [facility] Urine urobilinogen measureme ntOrdered By: Edgar Gudino on 06-21-2025 Urobilinogen Ql (U) Normal mg/dl Normal [facility] White blood cell (WBC) count Ordered By: Edgar Gudino on 06-21-2025 WBC (Bld) [#/Vol] 11.5 10*3/uL High 4.4-11.0 [facility] White blood cell countOrdere d By: Edgar Gudino on 06-21-2025 White blood cell count 0-5 SEEN /hpf 0-5 [facility] Office Visiton 06-12-2025 Follow-up visit [id number] Yessi Hatch 1945 M Date Provider Department Center 06/12/2025 42869-MBLGGEORGINA [facility]ORE [facility] None No family history on file Level of Service:93736 [place] OFFICE/OUTPATIENT ESTABLISHED MOD MDM 30 MIN Reason for Visit and Comments: Skin Lesion [[id number]] - EVAN-10/31/2024,ZB Normal [facility] Progress Noteon 06-12-2025 Progress Note DATE OF SERVICE: 06/12/2025 PATIENT NAME: Yessi Hatch : 1945 AGE: 79 y.o. CLINIC NUMBER: [id number] Visit type: Established patient Chief Complaint Patient presents with Skin Lesion EVAN-10/31/2024,ZB Subjective HISTORY OF PRESENT ILLNESS: This is a 79 y.o. male who presents for evaluation of skin lesion; last seen 10/31/2024. Patient states he is on inflectra infusion for psoriatic arthritis. Pt h/o numerous BCC and SCC. F/u- actinic keratoses located on the Left Forehead, Left Parotid Area, Left Uatsdin, Left Temporal Scalp, Left Zygomatic Area, Right Forehead, Right Parotid Area, Right Uatsdin, Right Temporal Scalp, Right Zygomatic Area At [...] Systems Orders Placed This Encounter Medications fluocinolone (Anton Ruiz-Smoothe) 0.01 % external oil Sig: Apply to [...] Moore MD 06/12/25 7:49 AM REFERRING MD: Normal [facility] AST(SGOT)on 06-11-2025 AST [Catalytic activity/Vol] 50 U/L High <=37 [facility] Comment on above: Performed By: #### L 501.4100, L5.5 ####[facility] [address] [facility] [address] [place], [place], [id number] Alanine Aminotransferas (SGP T)on 06-11-2025 ALT [Catalytic activity/Vol] 65 U/L High <=46 [facility] Comment on above: Performed By: #### L 501.4100, L501.4405 ####[facility] [address] [place], [place], [id number] Laboratory - Chemistry and C hemistry - challengeOrdered By: Coco Hinojosafabienne on 06-11-2025 AST [Catalytic activity/Vol] 50 U/L High <38 [facility] No Panel InformationOrdered By: [facility] 06-11-2025 50 U/L High <38 [facility] Serum or plasma alanine pham otransferase (ALT) measurementOrdered By: Coco Shah on 06-11-2025 ALT [Catalytic activity/Vol] 65 U/L High <47 [facility] AST(SGOT)on 05-28-2025 AST [Catalytic activity/Vol] 47 U/L High <=37 [facility] Comment on above: Order Comment: FAX R ESULTS TO [phone] Performed By: #### L 501.4405, L501.1105, L100.0100, L101.9900, L501.6710, L501.4100 ####[facility] [address] [place], [place], [id number] Absolute lymphocyte countOrd ered By: C[facility] on 05-28-2025 Lymphocytes Auto (Unsp spec) [#/Vol] 1.62 10*3/uL 0.83-4.51 [facility] Absolute neutrophil countOrd ered By: [facility] on 05-28-2025 Neutrophils (Bld) [#/Vol] 3.2 10*3/uL 2.0-7.7 [facility] Alanine Aminotransferas (SGP T)on 05-28-2025 ALT [Catalytic activity/Vol] 49 U/L High <=46 [facility] Comment on above: Order Comment: FAX R ESULTS TO [phone] Performed By: #### L 501.4405, L501.1105, L100.0100, L101.9900, L501.6710, L501.4100 ####[facility] [address] [place], [place], [id number] Automated lymphocyte count a s percentage of total leukocytesOrdered By: Ccoo Shah on 05-28-2025 Lymphocytes/100 WBC Auto (Unsp spec) 22.0 % 19-41 [facility] Basophil percentageOrdered B y: Coco Pablo on 05-28-2025 Basophils/100 WBC (Bld) 0.8 % 0-1 [facility] CBC W/Diff, Automatedon 05-14-2024 Absolute Lymph 1.62 X10 3/uL Normal 0.83-4.51 [facility] Comment on above: Performed By: #### L 501.4405, L501.1105, L100.0100, L101.9900, L501.6710, L501.4100 ####[facility] [address] [place], [address] Absolute Neut 3.2 X10 3/uL Normal 2.0-7.7 [facility] Comment on above: Performed By: #### L 501.4405, L501.1105, L100.0100, L101.9900, L501.6710, L501.4100 ####[facility] [address] [place], [address] Basophils/100 WBC (Bld) 0.8 % Normal 0-1 [facility] Comment on above: Performed By: #### L 501.4405, L501.1105, L100.0100, L101.9900, L501.6710, L501.4100 ####[facility] [address] [place], [address] Eosinophils/100 WBC (Bld) 22.6 % High 0-5 [facility] Comment on above: Performed By: #### L 501.4405, L501.1105, L100.0100, L101.9900, L501.6710, L501.4100 ####[facility] [address] [place], [address] Erythrocyte distribution width (RBC) [Ratio] 12.4 % Normal 11.6-14.6 [facility] Comment on above: Performed By: #### L 501.4405, L501.1105, L100.0100, L101.9900, L501.6710, L501.4100 ####[facility] [address] [place], [address] Hematocrit (Bld) [Volume fraction] 38.9 % Low 40-54 [facility] Comment on above: Performed By: #### L 501.4405, L501.1105, L100.0100, L101.9900, L501.6710, L501.4100 ####[facility] [address] [place], [address] Hemoglobin (Bld) [Mass/Vol] 13.2 g/dL Normal 13.0-16.5 [facility] Comment on above: Performed By: #### L 501.4405, L501.1105, L100.0100, L101.9900, L501.6710, L501.4100 ####[facility] [address] [place], [address] IG% 0.300 Normal 0.0-0.9 [facility] Comment on above: Result Comment: IG% - Immature Granulocytes (promyelocytes, myelocytes andmetamyelocytes) > 1% indicates that a LEFT SHIFT is Present. Performed By: #### L 501.4405, L501.1105, L100.0100, L101.9900, L501.6710, L501.4100 ####[facility] [address] [place], [address] Lymphocytes/100 WBC (Bld) 22.0 % Normal 19-41 [facility] Comment on above: Performed By: #### L 501.4405, L501.1105, L100.0100, L101.9900, L501.6710, L501.4100 ####[facility] [address] [place], [address] MCH (RBC) [Entitic mass] 31.8 pg Normal 27.0-32.0 [facility] Comment on above: Performed By: #### L 501.4405, L501.1105, L100.0100, L101.9900, L501.6710, L501.4100 ####[facility] [address] [place], [address] MCHC (RBC) [Mass/Vol] 33.9 g/dL Normal 32-36 [facility] Comment on above: Performed By: #### L 501.4405, L501.1105, L100.0100, L101.9900, L501.6710, L501.4100 ####[facility] [address] [place], [address] MCV (RBC) [Entitic vol] 93.7 fL Normal 80-94 [facility] Comment on above: Performed By: #### L 501.4405, L501.1105, L100.0100, L101.9900, L501.6710, L501.4100 ####[facility] [address] [place], [address] Monocytes/100 WBC (Bld) 11.2 % High 0-10 [facility] Comment on above: Performed By: #### L 501.4405, L501.1105, L100.0100, L101.9900, L501.6710, L501.4100 ####[facility] [address] [place], [address] Neutrophils/100 WBC (Bld) 43.1 % Low 47-70 [facility] Comment on above: Performed By: #### L 501.4405, L501.1105, L100.0100, L101.9900, L501.6710, L501.4100 ####[facility] [address] [place], [address] Nucleated RBC (Bld) [#/Vol] 0 10*3/uL Normal 0-5 [facility] Comment on above: Performed By: #### L 501.4405, L501.1105, L100.0100, L101.9900, L501.6710, L501.4100 ####[facility] [address] [place], [address] Platelet mean volume (Bld) [Entitic vol] 10.6 fL Normal 6.2-12.0 [facility] Comment on above: Performed By: #### L 501.4405, L501.1105, L100.0100, L101.9900, L501.6710, L501.4100 ####[facility] [address] [place], [address] Platelets (Bld) [#/Vol] 308 10*3/uL Normal 150-450 [facility] Comment on above: Performed By: #### L 501.4405, L501.1105, L100.0100, L101.9900, L501.6710, L501.4100 ####[facility] [address] [place], [address] RBC (Bld) [#/Vol] 4.15 10*6/uL Low 4.6-6.2 [facility] Comment on above: Performed By: #### L 501.4405, L501.1105, L100.0100, L101.9900, L501.6710, L501.4100 ####[facility] [address] [place], [address] RDW SD 42.8 fl Normal 35.1-43.9 [facility] Comment on above: Performed By: #### L 501.4405, L501.1105, L100.0100, L101.9900, L501.6710, L501.4100 ####[facility] [address] [place], [place], [address] WBC (Bld) [#/Vol] 7.4 10*3/uL Normal 4.4-11.0 [facility] Comment on above: Performed By: #### L 501.4405, L501.1105, L100.0100, L101.9900, L501.6710, L501.4100 ####[facility] [address] [place], [place], [address] CRPon 05-28-2025 C-REACTIVE PROT < 3.00 Normal 0.0-3.0 [facility] Comment on above: Order Comment: FAX R ESULTS TO [phone] Performed By: #### L 501.4405, L501.1105, L100.0100, L101.9900, L501.6710, L501.4100 ####[facility] [address] [place], [place], [address] Eosinophil percentageOrdered By: Coco Shah on 05-28-2025 Eosinophils/100 WBC (Bld) 22.6 % High 0-5 [facility] Erythrocyte Sed Rateon 05-28 SED RATE 24 mm/hr Man [facility] 0-20 [facility] Comment on above: Performed By: #### L 501.4405, L501.1105, L100.0100, L101.9900, L501.6710, L501.4100 ####[facility] [address] [place], [place], [address] Erythrocyte distribution wid th ratioOrdered By: Coco Shah on 05-28-2025 Erythrocyte distribution width (RBC) [Ratio] 12.4 % 11.6-14.6 [facility] Erythrocyte distribution wid th standard deviationOrdered By: Coco Shah on 05-28-2025 Erythrocyte distribution width (RBC) [Ratio] 42.8 fl 35.1-43.9 [facility] Erythrocyte sedimentation ra teOrdered By: Coco Shah on 05-28-2025 ESR (Bld) [Velocity] 24 mm/h High 0-20 [facility] Glomerular filtration rate ( GFR) estimation/1.73 sq m using serum, plasma, or whole bOrdered By: Coco Shah on 05-28-2025 GFR/1.73 sq M.predicted among non-blacks MDRD (S/P/Bld) [Vol rate/Area] 46 mL/min/{1.73_m2} Low >60 [facility] Comment on above: mL/min/1.73m2 CKD-EP I Creatinine Equation (2020) Hematocrit Auto (Bld) [Volum e fraction]Ordered By: Coco Shah on 05-28-2025 Hematocrit (Bld) [Volume fraction] 38.9 % Low 40-54 [facility] Hemoglobin measurementOrdere d By: Coco Shah on 05-28-2025 Hemoglobin (Bld) [Mass/Vol] 13.2 g/dL 13.0-16.5 [facility] Immature granulocytes/100 WB C Auto (Bld)Ordered By: Coco Shah on 05-28-2025 Immature granulocytes/100 WBC (Bld) 0.300 % 0.0-0.9 [facility] Comment on above: IG% - Immature Granu locytes (promyelocytes, myelocytes and metamyelocytes) > 1% indicates that a LEFT SHIFT is Present. Laboratory - Chemistry and C hemistry - challengeOrdered By: Coco Shah on 05-28-2025 AST [Catalytic activity/Vol] 47 U/L High <38 [facility] MCV (mean corpuscular volume ) determinationOrdered By: Coco Shah 05-28-2025 MCV (RBC) [Entitic vol] 93.7 fL 80-94 [facility] Mean corpuscular hemoglobin (MCH) determinationOrdered By: Coco Shah 05-28-2025 MCH (RBC) [Entitic mass] 31.8 pg 27.0-32.0 [facility] Mean corpuscular hemoglobin concentration (MCHC) determinationOrdered By: Coco Shah 05-28-2025 MCHC (RBC) [Mass/Vol] 33.9 g/dL 32-36 [facility] Mean platelet volume determi nationOrdered By: Coco Shah 05-28-2025 Platelet mean volume (Bld) [Entitic vol] 10.6 fL 6.2-12.0 [facility] Monocyte percentageOrdered B y: Coco Shah on 05-28-2025 Monocytes/100 WBC (Bld) 11.2 % High 0-10 [facility] Neutrophil percentageOrdered By: Coco Shah on 05-28-2025 Neutrophils/100 WBC (Bld) 43.1 % Low 47-70 [facility] No Panel InformationOrdered By: Coco Shah on 05-28-2025 47 U/L High <38 [facility] Nucleated red blood cell per centageOrdered By: Ccoo Hinojosanorthern [facility] hospitalnancy on 05-28-2025 Nucleated RBC/100 WBC (Bld) [Ratio] 0 % 0-5 [facility] Platelet countOrdered By: Filemon Shah on 05-28-2025 Platelets (Bld) [#/Vol] 308 10*3/uL 150-450 [facility] RBC Auto (Bld) [#/Vol]Ordere d By: Coco Shah on 05-28-2025 RBC (Bld) [#/Vol] 4.15 10*6/uL Low 4.6-6.2 [facility] Serum Creatinine AND GFRon 0 05-28-2025 Creatinine [Mass/Vol] 1.52 mg/dL High 0.70-1.20 [facility] Comment on above: Order Comment: FAX R ESULTS TO [phone] Performed By: #### L 501.4405, L501.1105, L100.0100, L101.9900, L501.6710, L501.4100 ####[facility] [address] [place], [place], [id number] GFR/1.73 sq M.predicted among non-blacks MDRD (S/P/Bld) [Vol rate/Area] 46 mL/min/{1.73_m2} Low >60 [facility] Comment on above: Order Comment: FAX R ESULTS TO [phone] Result Comment: mL/m in/1.73m2 CKD-EPI Creatinine Equation (2020) Performed By: #### L 501.4405, L501.1105, L100.0100, L101.9900, L501.6710, L501.4100 ####[facility] [address] [place], [place], [address] Serum creatinine measurement (mass/volume)Ordered By: [facility] on 05-28-2025 Creatinine [Mass/Vol] 1.52 mg/dL High 0.70-1.20 [facility] Serum or plasma C reactive p rotein measurement (mass/volume)Ordered By: [facility] on 05-28-2025 CRP [Mass/Vol] mg/L 0.0-3.0 [facility] Serum or plasma alanine pham otransferase (ALT) measurementOrdered By: [facility] on 05-28-2025 ALT [Catalytic activity/Vol] 49 U/L High <47 [facility] White blood cell (WBC) count Ordered By: [facility] on 05-28-2025 WBC (Bld) [#/Vol] 7.4 10*3/uL 4.4-11.0 [facility] PSA,Total- Diagnosticon 05-14 PSA, DIAGNOSTIC 0.57 ng/mL Normal 0.00-4.00 [facility] Comment on above: Result Comment: This test was performed using the [employer] tPSAmethod. Measured values of a patient??sample can varydepending on the testing procedure used. PSA valuesdetermined on patient samples by different testingprocedures cannot be used interchangeably. If there is achange in PSA assays while monitoring therapy, sequentialtesting should be performed to confirm baseline values. Performed By: #### L 501.9940 ####[facility] [address] [place], [place], [address] 25 0H VITAMIN D LEVELon 25 0H VITAMIN D LEVEL 80.5 NG/ML Normal [facility] Comment on above: Result Comment: DEFICIENT <20 NG/ML INSUFFICIENT 20-<30 NG/ML SUFFICIENT 30-100 NG/ML POTENTIAL TOXICITY >100 NG/ML Performed By: #### V ITD #### Testing performed at [address] [address] CBCon 05-22-2025 ABSOLUTE BAS 0.2 10*3/uL Normal 0.0-0.2 [facility] Comment on above: Performed By: #### A CBC, MG, URIC, RENF, IPTH #### Testing performed at [address] [address] ABSOLUTE EOS 1.4 10*3/uL High 0.0-0.7 [facility] Comment on above: Performed By: #### A CBC, MG, URIC, RENF, IPTH #### Testing performed at [address] [address] ABSOLUTE NEUTROPHIL COUNT 3.4 10*3/uL Normal 1.4-6.5 [facility] Comment on above: Performed By: #### A CBC, MG, URIC, RENF, IPTH #### Testing performed at [address] [address] Basophils/100 WBC (Bld) 2.6 % High 0.0-2.0 [facility] Comment on above: Performed By: #### A CBC, MG, URIC, RENF, IPTH #### Testing performed at [address] [address] DTYPE AUTO DIFF Normal [facility] Comment on above: Performed By: #### A CBC, MG, URIC, RENF, IPTH #### Testing performed at [address] [address] Eosinophils/100 WBC (Bld) 19.1 % High 0.0-11.0 [facility] Comment on above: Performed By: #### A CBC, MG, URIC, RENF, IPTH #### Testing performed at [address] [address] Lymphocytes (Bld) [#/Vol] 1.5 10*3/uL Normal 1.2-3.4 [facility] Comment on above: Performed By: #### A CBC, MG, URIC, RENF, IPTH #### Testing performed at [address] [address] Lymphocytes/100 WBC (Bld) 21.2 % Normal 20.0-55.0 [facility] Comment on above: Performed By: #### A CBC, MG, URIC, RENF, IPTH #### Testing performed at [address] [address] Monocytes (Bld) [#/Vol] 0.7 10*3/uL Normal 0.0-0.7 [facility] Comment on above: Performed By: #### A CBC, MG, URIC, RENF, IPTH #### Testing performed [address] [address] [address] Monocytes/100 WBC (Bld) 10.0 % Normal 0.0-10.0 [facility] Comment on above: Performed By: #### A CBC, MG, URIC, RENF, IPTH #### Testing performed at [address] [address] Neutrophils/100 WBC (Bld) 47.1 % Normal 37.0-75.0 [facility] Comment on above: Performed By: #### A CBC, MG, URIC, RENF, IPTH #### Testing performed at [address] [address] Erythrocyte distribution width (RBC) [Ratio] 13.7 % Normal 11.5-14.5 [facility] Comment on above: Performed By: #### A CBC, MG, URIC, RENF, IPTH #### Testing performed at [address] [address] Hematocrit (Bld) [Volume fraction] 41.3 % Low 42.0-52.0 [facility] Comment on above: Performed By: #### A CBC, MG, URIC, RENF, IPTH #### Testing performed at [address] [address] Hemoglobin (Bld) [Mass/Vol] 14.2 g/dL Normal 14.0-18.0 [facility] Comment on above: Performed By: #### A CBC, MG, URIC, RENF, IPTH #### Testing performed at [address] [address] MCH (RBC) [Entitic mass] 33.2 pg Normal 26.0-35.0 [facility] Comment on above: Performed By: #### A CBC, MG, URIC, RENF, IPTH #### Testing performed at [address] [address] MCHC (RBC) [Mass/Vol] 34.3 g/dL Normal 27.0-37.0 [facility] Comment on above: Performed By: #### A CBC, MG, URIC, RENF, IPTH #### Testing performed at [address] [address] MCV (RBC) [Entitic vol] 96.6 fL Normal 80.0-100.0 [facility] Comment on above: Performed By: #### A CBC, MG, URIC, RENF, IPTH #### Testing performed at [address] [address] Platelet mean volume (Bld) [Entitic vol] 8.6 fL Normal 7.4-11.0 [facility] Comment on above: Performed By: #### A CBC, MG, URIC, RENF, IPTH #### Testing performed at [address] [address] Platelets (Bld) [#/Vol] 283 10*3/uL Normal 130-400 [facility] Comment on above: Performed By: #### A CBC, MG, URIC, RENF, IPTH #### Testing performed at [address] [address] RBC (Bld) [#/Vol] 4.28 10*6/uL Normal 4.0-6.1 [facility] Comment on above: Performed By: #### A CBC, MG, URIC, RENF, IPTH #### Testing performed at [address] [address] WBC (Bld) [#/Vol] 7.2 10*3/uL Normal 3.6-11.0 [facility] Comment on above: Performed By: #### A CBC, MG, URIC, RENF, IPTH #### Testing performed at [address] [address] MAGNESIUMon 05-22-2025 Magnesium [Mass/Vol] 2.2 mg/dL Normal 1.6-2.3 [facility] Comment on above: Performed By: #### A CBC, MG, URIC, RENF, IPTH #### Testing performed at [address] [address] MALB/CREAT RATIO,URINEon MALB/CREAT RATIO,URINE 94.0 mg MALB/g CREAT High 1.3 -30.0 [facility] Comment on above: Performed By: #### A CBC, MG, URIC, RENF, IPTH #### Testing performed at [address] [place] [address] MICROALBUMIN,RANDOM URINE 45.5 mg/L High 0.0-16.7 [facility] Comment on above: Performed By: #### A CBC, MG, URIC, RENF, IPTH #### Testing performed at [address] [address] URINE CREATININE RANDOM 48.4 MG/DL Normal [facility] Comment on above: Result Comment: NO N ORMAL VALUES ESTABLISHED FOR RANDOM SPECIMENS Performed By: #### A CBC, MG, URIC, RENF, IPTH #### Testing performed at [address] [place] [address] PROTEIN CREATININE RATIOon 0 05-22-2025 PROTEIN CREATININE RATIO 0.3 Normal [facility] Comment on above: Result Comment: REFERENCE RANGES <0.2 NORMAL 0.2-3.5 NON-NEPHROTIC >3.5 NEPHROTIC Performed By: #### P CR #### Testing performed at [address] [address] URINE CREATININE RANDOM 48.4 MG/DL Normal [facility] Comment on above: Result Comment: NO N ORMAL VALUES ESTABLISHED FOR RANDOM SPECIMENS Performed By: #### P CR #### Testing performed at [address] [address] URINE TP RANDOM 16 MG/DL High 0-12 [facility] Comment on above: Performed By: #### P CR #### Testing performed at [address] [address] PTH,INTACTon 05-22-2025 PTH,INTACT 34.7 pg/mL Normal 14.5-75.2 [facility] Comment on above: Performed By: #### A CBC, MG, URIC, RENF, IPTH #### Testing performed at [address] [address] RENAL PANEL,FASTINGon 2024 Albumin [Mass/Vol] 4.6 g/dL Normal 3.5-5.0 [facility] Comment on above: Performed By: #### A CBC, MG, URIC, RENF, IPTH #### Testing performed at [address] [address] Calcium [Mass/Vol] 10.4 mg/dL High 8.4-10.2 [facility] Comment on above: Performed By: #### A CBC, MG, URIC, RENF, IPTH #### Testing performed at [address] [address] Chloride [Moles/Vol] 103 mmol/L Normal 98-107 [facility] Comment on above: Result Comment: Sid ott note: Triglyceride levels of 600mg/dL or higher may positively bias chloride results by approximately 2.1 mmol Performed By: #### A CBC, MG, URIC, RENF, IPTH #### Testing performed at [place] [id number] CO2 [Moles/Vol] 27 mmol/L Normal 22-30 [facility] Comment on above: Performed By: #### A CBC, MG, URIC, RENF, IPTH #### Testing performed at [address] [address] Creatinine [Mass/Vol] 1.70 mg/dL High 0.70-1.20 [facility] Comment on above: Performed By: #### A CBC, MG, URIC, RENF, IPTH #### Testing performed at [address] [address] GFR Information Average GFR for 70+ years old = 75. 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 Kidney failure, GFR = <15. The GFR estimate is not adjusted for extreme body surface area or acute process, nor has it been validated for women or ethnic groups other than and . Performed By: #### A CBC, MG, URIC, RENF, IPTH #### Testing performed at [address] [address] GFR/1.73 sq M.predicted MDRD (S/P/Bld) [Vol rate/Area] 41 mL/min/{1.73_m2} Normal [facility] Comment on above: Performed By: #### A CBC, MG, URIC, RENF, IPTH #### Testing performed at [address] [address] Glucose [Mass/Vol] 154 mg/dL High 70-100 [facility] Comment on above: Result Comment: NORMAL <100 mg/dL PREDIABETES 101-126 mg/dL DIABETES 126 mg/dL or higher Performed By: #### A CBC, MG, URIC, RENF, IPTH #### Testing performed at [address] [address] PHOSPHOROUS 4.2 MG/DL Normal 2.5-4.5 [facility] Comment on above: Performed By: #### A CBC, MG, URIC, RENF, IPTH #### Testing performed at [address] [address] Potassium [Moles/Vol] 4.8 mmol/L Normal 3.5-5.1 [facility] Comment on above: Performed By: #### A CBC, MG, URIC, RENF, IPTH #### Testing performed at [address] [address] Sodium [Moles/Vol] 138 mmol/L Normal 137-145 [facility] Comment on above: Performed By: #### A CBC, MG, URIC, RENF, IPTH #### Testing performed at [address] [address] Urea nitrogen [Mass/Vol] 27 mg/dL High 7-20 [facility] Comment on above: Performed By: #### A CBC, MG, URIC, RENF, IPTH #### Testing performed at [address] [address] URIC ACIDon 05-22-2025 Urate [Mass/Vol] 7.1 mg/dL High 2.4-7.0 [facility] Comment on above: Performed By: #### A CBC, MG, URIC, RENF, IPTH #### Testing performed at [address] [address] URINE MACROSCOPICon 05-22-20 25 Bilirubin Ql (U) Negative Normal NEGATIVE [facility] Comment on above: Performed By: #### U PAYAM, UNAR, UMAC, MCRAT #### Testing performed at [address] [address] Clarity (U) CLEAR Normal CLEAR [facility] Comment on above: Performed By: #### U PAYAM, UNAR, UMAC, MCRAT #### Testing performed at [address] [address] Color (U) YELLOW Normal YELLOW [facility] Comment on above: Performed By: #### U PAYAM, UNAR, UMAC, MCRAT #### Testing performed at [address] [address] Glucose Ql (U) Negative Normal NEGATIVE [facility] Comment on above: Performed By: #### U PAYAM, UNAR, UMAC, MCRAT #### Testing performed at [address] [address] pH (U) 6.0 [pH] Normal 5.0-7.0 [facility] Comment on above: Performed By: #### U PAYAM, UNAR, UMAC, MCRAT #### Testing performed at [address] [address] URINE HEMOGLOBIN Negative Normal NEGATIVE [facility] Comment on above: Performed By: #### U PAYAM, UNAR, UMAC, MCRAT #### Testing performed at [address] [address] URINE KETONE Negative Normal NEGATIVE [facility] Comment on above: Performed By: #### U PAYAM, UNAR, UMAC, MCRAT #### Testing performed at [address] [address] URINE LEUKOTEST Negative Normal NEGATIVE [facility] Comment on above: Performed By: #### U PAYAM, UNAR, UMAC, MCRAT #### Testing performed at [address] [address] URINE NITRATES Negative Normal NEGATIVE [facility] Comment on above: Performed By: #### U PAYAM, UNAR, UMAC, MCRAT #### Testing performed at [address] [address] URINE SPEC GRAVITY 1.015 Normal 1.010-1.025 [facility] Comment on above: Performed By: #### U PAYAM, UNAR, UMAC, MCRAT #### Testing performed at [address] [address] URINE TOTAL PROTEIN Negative Normal NEGATIVE [facility] Comment on above: Performed By: #### U PAYAM, UNAR, UMAC, MCRAT #### [place] [address] Urobilinogen Qn (U) 0.2 {Lisa'U}/dL Normal 0.2-1.0 [facility] Comment on above: Performed By: #### U PAYAM, UNAR, UMAC, MCRAT #### [place] [address] URINE MICROSCOPICon 05-22-20 25 BACTERIA 1+ Abnormal NEGATIVE [facility] Comment on above: Performed By: #### U PAYAM, UNAR, UMAC, MCRAT #### [place] [address] CASTS NONE Normal [facility] Comment on above: Performed By: #### U PAYAM, UNAR, UMAC, MCRAT #### Testing performed at [address] [address] CRYSTAL NONE Normal [facility] Comment on above: Performed By: #### U PAYAM, UNAR, UMAC, MCRAT #### Testing performed at [address] [address] Epithelial cells LM Ql (Urine sed) NONE Normal [facility] Comment on above: Performed By: #### U PAYAM, UNAR, UMAC, MCRAT #### Testing performed at [address] [address] Mucus Ql (Urine sed) Negative Normal NEGATIVE [facility] Comment on above: Performed By: #### U PAYAM, UNAR, UMAC, MCRAT #### Testing performed at [facility] [address] [place] [address] URINE COMMENT CULTURE CRITERIA NOT MET, NO CULTURE PERFORMED. Normal [facility] Comment on above: Performed By: #### U PAYAM, UNAR, UMAC, MCRAT #### Testing performed at [address] [address] URINE RBC'S Negative Normal NEGATIVE [facility] Comment on above: Performed By: #### U PAYAM, UNAR, UMAC, MCRAT #### Testing performed at [address] [address] URINE WBC'S Negative Normal NEGATIVE [facility] Comment on above: Performed By: #### U PAYAM, UNAR, UMAC, MCRAT #### Testing performed at [address] [address] URINE SODIUM RANDOMon 2024 Sodium (U) [Moles/Vol] 93 mmol/L High 30-90 [facility] Comment on above: Performed By: #### A CBC, MG, URIC, RENF, IPTH #### Testing performed at [address] [address] Anion gap in Serum or Plasma Ordered By: Latonia Berry on 05-14-2025 Anion gap [Moles/Vol] 11 mmol/L - [facility] BUN/creatinine ratioOrdered By: Latonia Berry on 05-14-2025 Urea nitrogen/Creatinine [Mass ratio] 17.6 mg/mg 10- [facility] Basic Metabolic Profile (BMP )on 05-14-2025 BUN/CRE 17.6 RATIO Normal - [facility] Comment on above: Performed By: #### L 101.9900, L100.0500, L500.2500 ####[facility] [address] [place], [address] Calcium [Mass/Vol] 9.8 mg/dL Normal 7.6-11.0 [facility] Comment on above: Performed By: #### L 101.9900, L100.0500, L500.2500 ####[facility] [address] [place], [address] Chloride [Moles/Vol] 104 mmol/L Normal 98-108 [facility] Comment on above: Performed By: #### L 101.9900, L100.0500, L500.2500 ####[facility] [address] [place], [address] CO2 [Moles/Vol] 23.2 mmol/L Normal 21.0-32.0 [facility] Comment on above: Performed By: #### L 101.9900, L100.0500, L500.2500 ####[facility] [address] [place], [address] Creatinine [Mass/Vol] 1.45 mg/dL High 0.70-1.20 [facility] Comment on above: Performed By: #### L 101.9900, L100.0500, L500.2500 ####[facility] [address] [place], [address] GAP 11 Normal 5-15 [facility] Comment on above: Performed By: #### L 101.9900, L100.0500, L500.2500 ####[facility] [address] [place], [address] GFR/1.73 sq M.predicted among non-blacks MDRD (S/P/Bld) [Vol rate/Area] 48 mL/min/{1.73_m2} Low >60 [facility] Comment on above: Result Comment: mL/m in/1.73m2 CKD-EPI Creatinine Equation (2020) Performed By: #### L 101.9900, L100.0500, L500.2500 ####[facility] [address] [place], [address] Glucose [Mass/Vol] 204 mg/dL High 70-99 [facility] Comment on above: Performed By: #### L 101.9900, L100.0500, L500.2500 ####[facility] [address] [place], [address] Potassium [Moles/Vol] 4.3 mmol/L Normal 3.3-5.1 [facility] Comment on above: Performed By: #### L 101.9900, L100.0500, L500.2500 ####[facility] [address] [place], [address] Sodium [Moles/Vol] 138 mmol/L Normal 133-145 [facility] Comment on above: Performed By: #### L 101.9900, L100.0500, L500.2500 ####[facility] [address] [place], [address] Urea nitrogen [Mass/Vol] 26 mg/dL High 4-19 [facility] Comment on above: Performed By: #### L 101.9900, L100.0500, L500.2500 ####[facility] [address] [place], [address] CBC-Complete Blood Cnt No Di ffon 05-14-2025 Erythrocyte distribution width (RBC) [Ratio] 13.3 % Normal 11.6-14.6 [facility] Comment on above: Performed By: #### L 101.9900, L100.0500, L500.2500 ####[facility] [address] [place], [address] Hematocrit (Bld) [Volume fraction] 35.4 % Low 40-54 [facility] Comment on above: Performed By: #### L 101.9900, L100.0500, L500.2500 ####[facility] [address] [place], [address] Hemoglobin (Bld) [Mass/Vol] 12.3 g/dL Low 13.0-16.5 [facility] Comment on above: Performed By: #### L 101.9900, L100.0500, L500.2500 ####[facility] [address] [place], [address] MCH (RBC) [Entitic mass] 33.9 pg High 27.0-32.0 [facility] Comment on above: Performed By: #### L 101.9900, L100.0500, L500.2500 ####[facility] [address] [place], [address] MCHC (RBC) [Mass/Vol] 34.7 g/dL Normal 32-36 [facility] Comment on above: Performed By: #### L 101.9900, L100.0500, L500.2500 ####[facility] [address] [place], [address] MCV (RBC) [Entitic vol] 97.5 fL High 80-94 [facility] Comment on above: Performed By: #### L 101.9900, L100.0500, L500.2500 ####[facility] [address] [place], [address] Platelet mean volume (Bld) [Entitic vol] 11.6 fL Normal 6.2-12.0 [facility] Comment on above: Performed By: #### L 101.9900, L100.0500, L500.2500 ####[facility] [address] [place], [address] Platelets (Bld) [#/Vol] 208 10*3/uL Normal 150-450 [facility] Comment on above: Performed By: #### L 101.9900, L100.0500, L500.2500 ####[facility] [address] [place], [address] RBC (Bld) [#/Vol] 3.63 10*6/uL Low 4.6-6.2 [facility] Comment on above: Performed By: #### L 101.9900, L100.0500, L500.2500 ####[facility] [address] [place], [address] RDW SD 47.7 fl High 35.1-43.9 [facility] Comment on above: Performed By: #### L 101.9900, L100.0500, L500.2500 ####[facility] [address], [address] WBC (Bld) [#/Vol] 6.5 10*3/uL Normal 4.4-11.0 [facility] Comment on above: Performed By: #### L 101.9900, L100.0500, L500.2500 ####[facility] [address] [place], [address] Carbon dioxide, total [Moles /volume] in Central venous bloodOrdered By: Latonia Berry on 05-14-2025 CO2 [Moles/Vol] 23.2 mmol/L 21.0-32.0 [facility] Chloride assayOrdered By: Cathy Berry on 05-14-2025 Chloride [Moles/Vol] 104 mmol/L 98-108 [facility] Erythrocyte Sed Rateon 05-14 SED RATE 16 mm/hr Normal 0-20 [facility] Comment on above: Performed By: #### L 101.9900, L100.0500, L500.2500 ####[facility] [address] [place], [address] Erythrocyte distribution wid th ratioOrdered By: Latonia Berry on 05-14-2025 Erythrocyte distribution width (RBC) [Ratio] 13.3 % 11.6-14.6 [facility] Erythrocyte distribution wid th standard deviationOrdered By: Latonia Berry on 05-14-2025 Erythrocyte distribution width (RBC) [Ratio] 47.7 fl High 35.1-43.9 [facility] Erythrocyte sedimentation ra teOrdered By: Latonia Berry on 05-14-2025 ESR (Bld) [Velocity] 16 mm/h 0-20 [facility] Glomerular filtration rate ( GFR) estimation/1.73 sq m using serum, plasma, or whole bOrdered By: Latonia Berry on 05-14-2025 GFR/1.73 sq M.predicted among non-blacks MDRD (S/P/Bld) [Vol rate/Area] 48 mL/min/{1.73_m2} Low >60 [facility] Comment on above: mL/min/1.73m2 CKD-EP I Creatinine Equation (2020) Hematocrit Auto (Bld) [Volum e fraction]Ordered By: Latonia Berry on 05-14-2025 Hematocrit (Bld) [Volume fraction] 35.4 % Low 40-54 [facility] Hemoglobin measurementOrdere d By: Latonia Berry on 05-14-2025 Hemoglobin (Bld) [Mass/Vol] 12.3 g/dL Low 13.0-16.5 [facility] MCV (mean corpuscular volume ) determinationOrdered By: Latonia Berry on 05-14-2025 MCV (RBC) [Entitic vol] 97.5 fL High 80-94 [facility] Mean corpuscular hemoglobin (MCH) determinationOrdered By: Latonia Berry on 05-14-2025 MCH (RBC) [Entitic mass] 33.9 pg High 27.0-32.0 [facility] Mean corpuscular hemoglobin concentration (MCHC) determinationOrdered By: Latonia Berry on 05-14-2025 MCHC (RBC) [Mass/Vol] 34.7 g/dL 32-36 [facility] Mean platelet volume determi nationOrdered By: Latonia Berry on 05-14-2025 Platelet mean volume (Bld) [Entitic vol] 11.6 fL 6.2-12.0 [facility] Platelet countOrdered By: Cathy Berry on 05-14-2025 Platelets (Bld) [#/Vol] 208 10*3/uL 150-450 [facility] Potassium measurement (mass/ volume)Ordered By: Latonia Berry on 05-14-2025 Potassium (Unsp spec) [Mass/Vol] 4.3 mmol/L 3.3-5.1 [facility] RBC Auto (Bld) [#/Vol]Ordere d By: Latonia Berry on 07-01-2025 RBC (Bld) [#/Vol] 3.63 10*6/uL Low 4.6-6.2 [facility] Serum creatinine measurement (mass/volume)Ordered By: Latonia Berry on 05-14-2025 Creatinine [Mass/Vol] 1.45 mg/dL High 0.70-1.20 [facility] Serum glucose measurement (m ass/volume)Ordered By: Latonia Berry on 05-14-2025 Glucose [Mass/Vol] 204 mg/dL High 70-99 [facility] Serum or plasma calcium amadou urement (mass/volume)Ordered By: Latonia Berry on 05-14-2025 Calcium [Mass/Vol] 9.8 mg/dL 7.6-11.0 [facility] Serum or plasma urea nitroge n measurement (mass/volume)Ordered By: Latonia Berry on 05-14-2025 Urea nitrogen [Mass/Vol] 26 mg/dL High 4-19 [facility] Sodium levelOrdered By: Apollo Berry on 05-14-2025 Sodium [Moles/Vol] 138 mmol/L 133-145 [facility] White blood cell (WBC) count Ordered By: Latonia Berry on 05-14-2025 WBC (Bld) [#/Vol] 6.5 10*3/uL 4.4-11.0 [facility] Culture, Blood (WB)on 2024 CUB Blood cultures x2, from two different sites No growth in [address] [facility] Comment on above: Performed By: #### M 200.1000 ####[facility] [address] [place], [place], [address] Basic Metabolic Profile (BMP )on 04-20-2025 BUN Normal - [facility] Comment on above: Result Comment: Canc elled via OM: Order cancelled - Patient discharged Performed By: #### L 500.2500, L100.0100 ####[facility] [address] [place], [place], [id number] BUN/CRE Normal 10- [facility] Comment on above: Result Comment: Canc elled via OM: Order cancelled - Patient discharged Performed By: #### L 500.2500, L100.0100 ####[facility] [address] [place], [address] Calcium Normal 7.6-11.0 [facility] Comment on above: Result Comment: Canc elled via OM: Order cancelled - Patient discharged Performed By: #### L 500.2500, L100.0100 ####[facility] [address] [place], [address] CL Normal 98-108 [facility] Comment on above: Result Comment: Canc elled via OM: Order cancelled - Patient discharged Performed By: #### L 500.2500, L100.0100 ####[facility] [address] [place], [address] CO2 Normal 21.0-32.0 [facility] Comment on above: Result Comment: Canc elled via OM: Order cancelled - Patient discharged Performed By: #### L 500.2500, L100.0100 ####[facility] [address] [place], [address] CREAT,SERUM Normal 0.70-1.20 [facility] Comment on above: Result Comment: Canc elled via OM: Order cancelled - Patient discharged Performed By: #### L 500.2500, L100.0100 ####[facility] [address] [place], [address] eGFR Normal >60 [facility] Comment on above: Result Comment: Canc elled via OM: Order cancelled - Patient discharged Performed By: #### L 500.2500, L100.0100 ####[facility] [address] [place], [address] GAP Normal 5-15 [facility] Comment on above: Result Comment: Canc elled via OM: Order cancelled - Patient discharged Performed By: #### L 500.2500, L100.0100 ####[facility] [address] [place], [address] GLU Normal 70-99 [facility] Comment on above: Result Comment: Canc elled via OM: Order cancelled - Patient discharged Performed By: #### L 500.2500, L100.0100 ####[facility] [address] [place], [address] Potassium Normal 3.3-5.1 [facility] Comment on above: Result Comment: Canc elled via OM: Order cancelled - Patient discharged Performed By: #### L 500.2500, L100.0100 ####[facility] [address] [place], [address] Basic Metabolic Profile (BMP) Normal 133-145 [facility] Comment on above: Result Comment: Canc elled via OM: Order cancelled - Patient discharged Performed By: #### L 500.2500, L100.0100 ####[facility] [address] [place], [address] CBC W/Diff, Automatedon 06-0 7-2024 Absolute Neut Normal 2.0-7.7 [facility] Comment on above: Result Comment: Canc elled via OM: Order cancelled - Patient discharged Performed By: #### L 500.2500, L100.0100 ####[facility] [address] [place], [address] HCT Normal 40-54 [facility] Comment on above: Result Comment: Canc elled via OM: Order cancelled - Patient discharged Performed By: #### L 500.2500, L100.0100 ####[facility] [address] [place], [address] HGB Normal 13.0-16.5 [facility] Comment on above: Result Comment: Canc elled via OM: Order cancelled - Patient discharged Performed By: #### L 500.2500, L100.0100 ####[facility] [address] [place], [address] MCH Normal 27.0-32.0 [facility] Comment on above: Result Comment: Canc elled via OM: Order cancelled - Patient discharged Performed By: #### L 500.2500, L100.0100 ####[facility] [address] [place], [address] MCHC Normal 32-36 [facility] Comment on above: Result Comment: Canc elled via OM: Order cancelled - Patient discharged Performed By: #### L 500.2500, L100.0100 ####[facility] [address] [place], [address] MCV Normal 80-94 [facility] Comment on above: Result Comment: Canc elled via OM: Order cancelled - Patient discharged Performed By: #### L 500.2500, L100.0100 ####[facility] [address] [place], [address] NEUT% Normal 47-70 [facility] Comment on above: Result Comment: Canc elled via OM: Order cancelled - Patient discharged Performed By: #### L 500.2500, L100.0100 ####[facility] [address] [place], [address] PLT Normal 150-450 [facility] Comment on above: Result Comment: Canc elled via OM: Order cancelled - Patient discharged Performed By: #### L 500.2500, L100.0100 ####[facility] [address] [place], [address] RBC Normal 4.6-6.2 [facility] Comment on above: Result Comment: Canc elled via OM: Order cancelled - Patient discharged Performed By: #### L 500.2500, L100.0100 ####[facility] [address] [place], [address] RDW CV Normal 11.6-14.6 [facility] Comment on above: Result Comment: Canc elled via OM: Order cancelled - Patient discharged Performed By: #### L 500.2500, L100.0100 ####[facility] [address] [place], [address] RDW SD Normal 35.1-43.9 [facility] Comment on above: Result Comment: Canc elled via OM: Order cancelled - Patient discharged Performed By: #### L 500.2500, L100.0100 ####[facility] [address] [place], [address] WBC Normal 4.4-11.0 [facility] Comment on above: Result Comment: Canc elled via OM: Order cancelled - Patient discharged Performed By: #### L 500.2500, L100.0100 ####[facility] [address] [place], [address] Basic Metabolic Profile (BMP )on 04-19-2025 BUN Normal 4-19 [facility] Comment on above: Result Comment: Canc elled via OM: Order cancelled - Patient discharged Performed By: #### L 100.0100, L500.2500 ####[facility] [address] [place], [address] BUN/CRE Normal 10-20 [facility] Comment on above: Result Comment: Canc elled via OM: Order cancelled - Patient discharged Performed By: #### L 100.0100, L500.2500 ####[facility] [address] [place], [address] Calcium Normal 7.6-11.0 [facility] Comment on above: Result Comment: Canc elled via OM: Order cancelled - Patient discharged Performed By: #### L 100.0100, L500.2500 ####[facility] [address] [place], [address] CL Normal 98-108 [facility] Comment on above: Result Comment: Canc elled via OM: Order cancelled - Patient discharged Performed By: #### L 100.0100, L500.2500 ####[facility] [address] [place], [address] CO2 Normal 21.0-32.0 [facility] Comment on above: Result Comment: Canc elled via OM: Order cancelled - Patient discharged Performed By: #### L 100.0100, L500.2500 ####[facility] [address] [place], [address] CREAT,SERUM Normal 0.70-1.20 [facility] Comment on above: Result Comment: Canc elled via OM: Order cancelled - Patient discharged Performed By: #### L 100.0100, L500.2500 ####[facility] [address] [place], [address] eGFR Normal >60 [facility] Comment on above: Result Comment: Canc elled via OM: Order cancelled - Patient discharged Performed By: #### L 100.0100, L500.2500 ####[facility] [address] [place], [address] GAP Normal 5-15 [facility] Comment on above: Result Comment: Canc elled via OM: Order cancelled - Patient discharged Performed By: #### L 100.0100, L500.2500 ####[facility] [address] [place], [address] GLU Normal 70-99 [facility] Comment on above: Result Comment: Canc elled via OM: Order cancelled - Patient discharged Performed By: #### L 100.0100, L500.2500 ####[facility] [address] [place], [address] Potassium Normal 3.3-5.1 [facility] Comment on above: Result Comment: Canc elled via OM: Order cancelled - Patient discharged Performed By: #### L 100.0100, L500.2500 ####[facility] [address] [place], [address] Basic Metabolic Profile (BMP) Normal 133-145 [facility] Comment on above: Result Comment: Canc elled via OM: Order cancelled - Patient discharged Performed By: #### L 100.0100, L500.2500 ####[facility] [address] [place], [address] CBC W/Diff, Automatedon 06-0 6-2024 Absolute Neut Normal 2.0-7.7 [facility] Comment on above: Result Comment: Canc elled via OM: Order cancelled - Patient discharged Performed By: #### L 100.0100, L500.2500 ####[facility] [address] [place], [address] HCT Normal 40-54 [facility] Comment on above: Result Comment: Canc elled via OM: Order cancelled - Patient discharged Performed By: #### L 100.0100, L500.2500 ####[facility] [address] [place], [address] HGB Normal 13.0-16.5 [facility] Comment on above: Result Comment: Canc elled via OM: Order cancelled - Patient discharged Performed By: #### L 100.0100, L500.2500 ####[facility] [address] [place], [address] MCH Normal 27.0-32.0 [facility] Comment on above: Result Comment: Canc elled via OM: Order cancelled - Patient discharged Performed By: #### L 100.0100, L500.2500 ####[facility] [address] [place], [address] MCHC Normal 32-36 [facility] Comment on above: Result Comment: Canc elled via OM: Order cancelled - Patient discharged Performed By: #### L 100.0100, L500.2500 ####[facility] [address] [place], [address] MCV Normal 80-94 [facility] Comment on above: Result Comment: Canc elled via OM: Order cancelled - Patient discharged Performed By: #### L 100.0100, L500.2500 ####[facility] [address] [place], [address] NEUT% Normal 47-70 [facility] Comment on above: Result Comment: Canc elled via OM: Order cancelled - Patient discharged Performed By: #### L 100.0100, L500.2500 ####[facility] [address] [place], [address] PLT Normal 150-450 [facility] Comment on above: Result Comment: Canc elled via OM: Order cancelled - Patient discharged Performed By: #### L 100.0100, L500.2500 ####[facility] [address] [place], [address] RBC Normal 4.6-6.2 [facility] Comment on above: Result Comment: Canc elled via OM: Order cancelled - Patient discharged Performed By: #### L 100.0100, L500.2500 ####[facility] [address] [place], [address] RDW CV Normal 11.6-14.6 [facility] Comment on above: Result Comment: Canc elled via OM: Order cancelled - Patient discharged Performed By: #### L 100.0100, L500.2500 ####[facility] [address] [place], [address] RDW SD Normal 35.1-43.9 [facility] Comment on above: Result Comment: Canc elled via OM: Order cancelled - Patient discharged Performed By: #### L 100.0100, L500.2500 ####[facility] [address] [place], [address] WBC Normal 4.4-11.0 [facility] Comment on above: Result Comment: Canc elled via OM: Order cancelled - Patient discharged Performed By: #### L 100.0100, L500.2500 ####[facility] [address] [place], [address] Culture, Anaerobic Any Sourc alec 04-19-2025 CUAN List Antibiotics Las t 48 Hours? merrem, vanco, doxycycline No anaerobic bacteria isolated. Normal [facility] Comment on above: Performed By: #### M 100.3000, M100.4001, M100.2000 ####[facility] [address] [place], [address] Basic Metabolic Profile (BMP )on 04-18-2025 BUN Normal 4-19 [facility] Comment on above: Result Comment: Canc elled via OM: Order cancelled - Patient discharged Performed By: #### L 500.2500, L100.0100 ####[facility] [address] [place], [address] BUN/CRE Normal 10-20 [facility] Comment on above: Result Comment: Canc elled via OM: Order cancelled - Patient discharged Performed By: #### L 500.2500, L100.0100 ####[facility] [address] [place], [address] Calcium Normal 7.6-11.0 [facility] Comment on above: Result Comment: Canc elled via OM: Order cancelled - Patient discharged Performed By: #### L 500.2500, L100.0100 ####[facility] [address] [place], [address] CL Normal 98-108 [facility] Comment on above: Result Comment: Canc elled via OM: Order cancelled - Patient discharged Performed By: #### L 500.2500, L100.0100 ####[facility] [address] [place], [address] CO2 Normal 21.0-32.0 [facility] Comment on above: Result Comment: Canc elled via OM: Order cancelled - Patient discharged Performed By: #### L 500.2500, L100.0100 ####[facility] [address] [place], [address] CREAT,SERUM Normal 0.70-1.20 [facility] Comment on above: Result Comment: Canc elled via OM: Order cancelled - Patient discharged Performed By: #### L 500.2500, L100.0100 ####[facility] [address] [place], [address] eGFR Normal >60 [facility] Comment on above: Result Comment: Canc elled via OM: Order cancelled - Patient discharged Performed By: #### L 500.2500, L100.0100 ####[facility] [address] [place], [address] GAP Normal 5-15 [facility] Comment on above: Result Comment: Canc elled via OM: Order cancelled - Patient discharged Performed By: #### L 500.2500, L100.0100 ####[facility] [address] [place], [address] GLU Normal 70-99 [facility] Comment on above: Result Comment: Canc elled via OM: Order cancelled - Patient discharged Performed By: #### L 500.2500, L100.0100 ####[facility] [address] [place], [address] Potassium Normal 3.3-5.1 [facility] Comment on above: Result Comment: Canc elled via OM: Order cancelled - Patient discharged Performed By: #### L 500.2500, L100.0100 ####[facility] [address] [place], [address] Basic Metabolic Profile (BMP) Normal 133-145 [facility] Comment on above: Result Comment: Canc elled via OM: Order cancelled - Patient discharged Performed By: #### L 500.2500, L100.0100 ####[facility] [address] [place], [address] CBC W/Diff, Automatedon 06-0 5-2024 Absolute Neut Normal 2.0-7.7 [facility] Comment on above: Result Comment: Canc elled via OM: Order cancelled - Patient discharged Performed By: #### L 500.2500, L100.0100 ####[facility] [address] [place], [address] HCT Normal 40-54 [facility] Comment on above: Result Comment: Canc elled via OM: Order cancelled - Patient discharged Performed By: #### L 500.2500, L100.0100 ####[facility] [address] [place], [address] HGB Normal 13.0-16.5 [facility] Comment on above: Result Comment: Canc elled via OM: Order cancelled - Patient discharged Performed By: #### L 500.2500, L100.0100 ####[facility] [address] [place], [address] MCH Normal 27.0-32.0 [facility] Comment on above: Result Comment: Canc elled via OM: Order cancelled - Patient discharged Performed By: #### L 500.2500, L100.0100 ####[facility] [address] [place], [address] MCHC Normal 32-36 [facility] Comment on above: Result Comment: Canc elled via OM: Order cancelled - Patient discharged Performed By: #### L 500.2500, L100.0100 ####[facility] [address] [place], [address] MCV Normal 80-94 [facility] Comment on above: Result Comment: Canc elled via OM: Order cancelled - Patient discharged Performed By: #### L 500.2500, L100.0100 ####[facility] [address] [place], [address] NEUT% Normal 47-70 [facility] Comment on above: Result Comment: Canc elled via OM: Order cancelled - Patient discharged Performed By: #### L 500.2500, L100.0100 ####[facility] [address] [place], [address] PLT Normal 150-450 [facility] Comment on above: Result Comment: Canc elled via OM: Order cancelled - Patient discharged Performed By: #### L 500.2500, L100.0100 ####[facility] [address] [place], [address] RBC Normal 4.6-6.2 [facility] Comment on above: Result Comment: Canc elled via OM: Order cancelled - Patient discharged Performed By: #### L 500.2500, L100.0100 ####[facility] [address] [place], [address] RDW CV Normal 11.6-14.6 [facility] Comment on above: Result Comment: Canc elled via OM: Order cancelled - Patient discharged Performed By: #### L 500.2500, L100.0100 ####[facility] [address] [place], [address] RDW SD Normal 35.1-43.9 [facility] Comment on above: Result Comment: Canc elled via OM: Order cancelled - Patient discharged Performed By: #### L 500.2500, L100.0100 ####[facility] [address] [place], [address] WBC Normal 4.4-11.0 [facility] Comment on above: Result Comment: Canc elled via OM: Order cancelled - Patient discharged Performed By: #### L 500.2500, L100.0100 ####[facility] [address] [place], [address] Wound Cultureon 04-18-[address] [facility] Comment on above: Performed By: #### M 100.3000, M100.4001, M100.2000 ####[facility] [address] [place], [address] Absolute lymphocyte countOrd ered By: Coco Pepe on 04-17-2025 Lymphocytes Auto (Unsp spec) [#/Vol] 1.18 10*3/uL 0.83-4.51 [facility] Absolute neutrophil countOrd ered By: Coco Pepe on 04-17-2025 Neutrophils (Bld) [#/Vol] 5.5 10*3/uL 2.0-7.7 [facility] Anion gap in Serum or Plasma Ordered By: Coco Pepe on 04-17-2025 Anion gap [Moles/Vol] 13 mmol/L 5- [facility] Automated lymphocyte count a s percentage of total leukocytesOrdered By: Coco Pepe on 04-17-2025 Lymphocytes/100 WBC Auto (Unsp spec) 15.0 % Low - [facility] BUN/creatinine ratioOrdered By: Coco Pepe on 04-17-2025 Urea nitrogen/Creatinine [Mass ratio] 16.8 mg/mg - [facility] Basic Metabolic Profile (BMP )on 04-17-2025 BUN/CRE 16.8 RATIO Normal 09-02 [facility] Comment on above: Performed By: #### L 500.2500, L100.0100 ####[facility] [address] [place], [address] Calcium [Mass/Vol] 9.5 mg/dL Normal 7.6-11.0 [facility] Comment on above: Performed By: #### L 500.2500, L100.0100 ####[facility] [address] [place], [address] Chloride [Moles/Vol] 106 mmol/L Normal 98-108 [facility] Comment on above: Performed By: #### L 500.2500, L100.0100 ####[facility] [address] [place], [address] CO2 [Moles/Vol] 21.9 mmol/L Normal 21.0-32.0 [facility] Comment on above: Performed By: #### L 500.2500, L100.0100 ####[facility] [address] [place], [address] Creatinine [Mass/Vol] 1.19 mg/dL Normal 0.70-1.20 [facility] Comment on above: Performed By: #### L 500.2500, L100.0100 ####[facility] [address] [place], [address] ECRCL 53.44 ml/min Normal 50-250 [facility] Comment on above: Performed By: #### L 500.2500, L100.0100 ####[facility] [address] [place], [address] GAP 13 Normal 5-15 [facility] Comment on above: Performed By: #### L 500.2500, L100.0100 ####[facility] [address] [place], [address] GFR/1.73 sq M.predicted among non-blacks MDRD (S/P/Bld) [Vol rate/Area] 61 mL/min/{1.73_m2} Normal >60 [facility] Comment on above: Result Comment: mL/m in/1.73m2 CKD-EPI Creatinine Equation (2020) Performed By: #### L 500.2500, L100.0100 ####[facility] [address] [place], [address] Glucose [Mass/Vol] 171 mg/dL High 70-99 [facility] Comment on above: Performed By: #### L 500.2500, L100.0100 ####[facility] [address] [place], [address] Potassium [Moles/Vol] 4.4 mmol/L Normal 3.3-5.1 [facility] Comment on above: Performed By: #### L 500.2500, L100.0100 ####[facility] [address] [place], [address] Sodium [Moles/Vol] 140 mmol/L Normal 133-145 [facility] Comment on above: Performed By: #### L 500.2500, L100.0100 ####[facility] [address] [place], [address] Urea nitrogen [Mass/Vol] 20 mg/dL High 4-19 [facility] Comment on above: Performed By: #### L 500.2500, L100.0100 ####[facility] [address] [place], [address] Basophil percentageOrdered B y: Coco Pepe on 04-17-2025 Basophils/100 WBC (Bld) 0.5 % 0-1 [facility] Bedside Glucoseon 04-17-2025 FINGERSTICK GLU 174 mg/dL High 74-106 [facility] Comment on above: Result Comment: SEFERINO GEMENT OF PATIENT CARE PER NURSING PROTOCOL Performed By: #### L 501.080 ####[facility] [address] [place], [address] FINGERSTICK GLU 122 mg/dL High 74-106 [facility] Comment on above: Result Comment: SEFERINO GEMENT OF PATIENT CARE PER NURSING PROTOCOL Performed By: #### L 501.080 ####[facility] [address] [place], [address] CBC W/Diff, Automatedon 06-0 Absolute Lymph 1.18 X10 3/uL Normal 0.83-4.51 [facility] Comment on above: Performed By: #### L 500.2500, L100.0100 ####[facility] [address] [place], [address] Absolute Neut 5.5 X10 3/uL Normal 2.0-7.7 [facility] Comment on above: Performed By: #### L 500.2500, L100.0100 ####[facility] [address] [place], [address] Basophils/100 WBC (Bld) 0.5 % Normal 0-1 [facility] Comment on above: Performed By: #### L 500.2500, L100.0100 ####[facility] [address] [place], [address] Eosinophils/100 WBC (Bld) 4.8 % Normal 0-5 [facility] Comment on above: Performed By: #### L 500.2500, L100.0100 ####[facility] [address] [place], [address] Erythrocyte distribution width (RBC) [Ratio] 14.6 % Normal 11.6-14.6 [facility] Comment on above: Performed By: #### L 500.2500, L100.0100 ####[facility] [address] [place], [address] Hematocrit (Bld) [Volume fraction] 37.1 % Low 40-54 [facility] Comment on above: Performed By: #### L 500.2500, L100.0100 ####[facility] [address] [place], [address] Hemoglobin (Bld) [Mass/Vol] 12.6 g/dL Low 13.0-16.5 [facility] Comment on above: Performed By: #### L 500.2500, L100.0100 ####[facility] [address] [place], [address] IG% 0.500 Normal 0.0-0.9 [facility] Comment on above: Result Comment: IG% - Immature Granulocytes (promyelocytes, myelocytes andmetamyelocytes) > 1% indicates that a LEFT SHIFT is Present. Performed By: #### L 500.2500, L100.0100 ####[facility] [address] [place], [address] Lymphocytes/100 WBC (Bld) 15.0 % Low 19-41 [facility] Comment on above: Performed By: #### L 500.2500, L100.0100 ####[facility] [address] [place], [address] MCH (RBC) [Entitic mass] 33.9 pg High 27.0-32.0 [facility] Comment on above: Performed By: #### L 500.2500, L100.0100 ####[facility] [address] [place], [address] MCHC (RBC) [Mass/Vol] 34.0 g/dL Normal 32-36 [facility] Comment on above: Performed By: #### L 500.2500, L100.0100 ####[facility] [address] [place], [address] MCV (RBC) [Entitic vol] 99.7 fL High 80-94 [facility] Comment on above: Performed By: #### L 500.2500, L100.0100 ####[facility] [address] [place], [address] Monocytes/100 WBC (Bld) 8.9 % Normal 0-10 [facility] Comment on above: Performed By: #### L 500.2500, L100.0100 ####[facility] [address] [place], [address] Neutrophils/100 WBC (Bld) 70.3 % High 47-70 [facility] Comment on above: Performed By: #### L 500.2500, L100.0100 ####[facility] [address] [place], [address] Nucleated RBC (Bld) [#/Vol] 0 10*3/uL Normal 0-5 [facility] Comment on above: Performed By: #### L 500.2500, L100.0100 ####[facility] [address] [place], [address] Platelet mean volume (Bld) [Entitic vol] 10.4 fL Normal 6.2-12.0 [facility] Comment on above: Performed By: #### L 500.2500, L100.0100 ####[facility] [address] [place], [address] Platelets (Bld) [#/Vol] 207 10*3/uL Normal 150-450 [facility] Comment on above: Performed By: #### L 500.2500, L100.0100 ####[facility] [address] [place], [address] RBC (Bld) [#/Vol] 3.72 10*6/uL Low 4.6-6.2 [facility] Comment on above: Performed By: #### L 500.2500, L100.0100 ####[facility] [address] [place], [address] RDW SD 52.2 fl High 35.1-43.9 [facility] Comment on above: Performed By: #### L 500.2500, L100.0100 ####[facility] [address] [place], [address] WBC (Bld) [#/Vol] 7.9 10*3/uL Normal 4.4-11.0 [facility] Comment on above: Performed By: #### L 500.2500, L100.0100 ####[facility] [address] [place], [address] Carbon dioxide, total [Moles /volume] in Central venous bloodOrdered By: Coco Pepe on 04-17-2025 CO2 [Moles/Vol] 21.9 mmol/L 21.0-32.0 [facility] Chloride assayOrdered By: Filemon Pepe on 04-17-2025 Chloride [Moles/Vol] 106 mmol/L 98-108 [facility] Eosinophil percentageOrdered By: Coco Pepe on 04-17-2025 Eosinophils/100 WBC (Bld) 4.8 % 0-5 [facility] Erythrocyte distribution wid th ratioOrdered By: Coco Pepe on 04-17-2025 Erythrocyte distribution width (RBC) [Ratio] 14.6 % 11.6-14.6 [facility] Erythrocyte distribution wid th standard deviationOrdered By: Coco Pepe on 04-17-2025 Erythrocyte distribution width (RBC) [Ratio] 52.2 fl High 35.1-43.9 [facility] Glomerular filtration rate ( GFR) estimation/1.73 sq m using serum, plasma, or whole bOrdered By: Coco Pepe on 04-17-2025 GFR/1.73 sq M.predicted among non-blacks MDRD (S/P/Bld) [Vol rate/Area] 61 mL/min/{1.73_m2} >60 [facility] Comment on above: mL/min/1.73m2 CKD-EP I Creatinine Equation (2020) Glucose measurement at bedsi deOrdered By: Coco Pepe on 04-17-2025 Glucose [Mass/Vol] 174 mg/dL High 74-106 [facility] Comment on above: MANAGEMENT OF PATIEN T CARE PER NURSING PROTOCOL Hematocrit Auto (Bld) [Volum e fraction]Ordered By: Coco Pepe on 04-17-2025 Hematocrit (Bld) [Volume fraction] 37.1 % Low 40-54 [facility] Hemoglobin measurementOrdere d By: Coco Pepe on 04-17-2025 Hemoglobin (Bld) [Mass/Vol] 12.6 g/dL Low 13.0-16.5 [facility] Immature granulocytes/100 WB C Auto (Bld)Ordered By: Coco Pepe on 04-17-2025 Immature granulocytes/100 WBC (Bld) 0.500 % 0.0-0.9 [facility] Comment on above: IG% - Immature Granu locytes (promyelocytes, myelocytes and metamyelocytes) > 1% indicates that a LEFT SHIFT is Present. MCV (mean corpuscular volume ) determinationOrdered By: Coco Pepe on 04-17-2025 MCV (RBC) [Entitic vol] 99.7 fL High 80-94 [facility] Mean corpuscular hemoglobin (MCH) determinationOrdered By: Coco Pepe on 04-17-2025 MCH (RBC) [Entitic mass] 33.9 pg High 27.0-32.0 [facility] Mean corpuscular hemoglobin concentration (MCHC) determinationOrdered By: Coco Pepe on 04-17-2025 MCHC (RBC) [Mass/Vol] 34.0 g/dL 32-36 [facility] Mean platelet volume determi nationOrdered By: Coco Pepe on 04-17-2025 Platelet mean volume (Bld) [Entitic vol] 10.4 fL 6.2-12.0 [facility] Monocyte percentageOrdered B y: Coco Pepe on 04-17-2025 Monocytes/100 WBC (Bld) 8.9 % 0-10 [facility] Neutrophil percentageOrdered By: Coco Pepe on 04-17-2025 Neutrophils/100 WBC (Bld) 70.3 % High 47-70 [facility] Nucleated red blood cell per centageOrdered By: Coco Pepe on 04-17-2025 Nucleated RBC/100 WBC (Bld) [Ratio] 0 % 0-5 [facility] Platelet countOrdered By: Filemon Pepe on 04-17-2025 Platelets (Bld) [#/Vol] 207 10*3/uL 150-450 [facility] Potassium measurement (mass/ volume)Ordered By: Coco Pepe on 04-17-2025 Potassium (Unsp spec) [Mass/Vol] 4.4 mmol/L 3.3-5.1 [facility] RBC Auto (Bld) [#/Vol]Ordere d By: Coco Pepe on 04-17-2025 RBC (Bld) [#/Vol] 3.72 10*6/uL Low 4.6-6.2 [facility] Serum creatinine measurement (mass/volume)Ordered By: Coco Pepe on 04-17-2025 Creatinine [Mass/Vol] 1.19 mg/dL 0.70-1.20 [facility] Serum glucose measurement (m ass/volume)Ordered By: Coco Pepe on 04-17-2025 Glucose [Mass/Vol] 171 mg/dL High 70-99 [facility] Serum or plasma calcium amadou urement (mass/volume)Ordered By: Coco Pepe on 04-17-2025 Calcium [Mass/Vol] 9.5 mg/dL 7.6-11.0 [facility] Serum or plasma urea nitroge n measurement (mass/volume)Ordered By: Coco Pepe on 04-17-2025 Urea nitrogen [Mass/Vol] 20 mg/dL High 4-19 [facility] Sodium levelOrdered By: Kit Pepe on 04-17-2025 Sodium [Moles/Vol] 140 mmol/L 133-145 [facility] Trough vancomycin levelOrder ed By: Latonia Berry on 04-17-2025 Vancomycin trough [Mass/Vol] 12.9 ug/mL 5.0-15.0 [facility] Comment on above: Recommended goal tro ugh [...] therapy recommended for serious lifethreatening infections include:- Honnmchctg-Auxnuykdgixw-Iwvrscxnt (Ventilator/Healtcare Associated)-Sepsis PLEASE CONTACT PHARMACY SERVICES (#[id number]) FOR INTERPRETATIONOF RESULTS. Vancomycin, Trough Levelon 0 04-17-2025 VANCO, TROUGH 12.9 ug/mL Normal 5.0-15.0 [facility] Comment on above: Order Comment: Comme nts: DRAW 30 MIN PRIOR TO [id number] Result Comment: Harpal mmended goal trough ranges [...] therapy recommended for serious lifethreatening infections include:- Sechgnworw-Mgelaitgytoc-Crlhzfqwz (Ventilator/Healtcare Associated)-SepsisPLEASE CONTACT PHARMACY SERVICES (#[id number]) FOR INTERPRETATIONOF RESULTS. Performed By: #### L 501.8820 ####[facility] [address] [place], [place], [id number] White blood cell (WBC) count Ordered By: Coco Pepe on 04-17-2025 WBC (Bld) [#/Vol] 7.9 10*3/uL 4.4-11.0 [facility] Basic Metabolic Profile (BMP )on 04-16-2025 BUN/CRE 18.4 RATIO Normal 10-20 [facility] Comment on above: Performed By: #### L 100.0100, L500.2500, L501.2300, L501.5200, L501.9985 ####[facility] [address] [place], [place], [id number] Calcium [Mass/Vol] 9.1 mg/dL Normal 7.6-11.0 [facility] Comment on above: Performed By: #### L 100.0100, L500.2500, L501.2300, L501.5200, L501.9985 ####[facility] [address] [place], [address] Chloride [Moles/Vol] 107 mmol/L Normal 98-108 [facility] Comment on above: Performed By: #### L 100.0100, L500.2500, L501.2300, L501.5200, L501.9985 ####[facility] [address] [place], [address] CO2 [Moles/Vol] 23.9 mmol/L Normal 21.0-32.0 [facility] Comment on above: Performed By: #### L 100.0100, L500.2500, L501.2300, L501.5200, L501.9985 ####[facility] [address] [place], [address] Creatinine [Mass/Vol] 1.28 mg/dL High 0.70-1.20 [facility] Comment on above: Performed By: #### L 100.0100, L500.2500, L501.2300, L501.5200, L501.9985 ####[facility] [address] [place], [address] ECRCL 49.68 ml/min Low 50-250 [facility] Comment on above: Performed By: #### L 100.0100, L500.2500, L501.2300, L501.5200, L501.9985 ####[facility] [address] [place], [address] GAP 9 Normal 5-15 [facility] Comment on above: Performed By: #### L 100.0100, L500.2500, L501.2300, L501.5200, L501.9985 ####[facility] [address] [place], [address] GFR/1.73 sq M.predicted among non-blacks MDRD (S/P/Bld) [Vol rate/Area] 56 mL/min/{1.73_m2} Low >60 [facility] Comment on above: Result Comment: mL/m in/1.73m2 CKD-EPI Creatinine Equation (2020) Performed By: #### L 100.0100, L500.2500, L501.2300, L501.5200, L501.9985 ####[facility] [address] [place], [address] Glucose [Mass/Vol] 183 mg/dL High 70-99 [facility] Comment on above: Performed By: #### L 100.0100, L500.2500, L501.2300, L501.5200, L501.9985 ####[facility] [address] [place], [address] Potassium [Moles/Vol] 3.7 mmol/L Normal 3.3-5.1 [facility] Comment on above: Performed By: #### L 100.0100, L500.2500, L501.2300, L501.5200, L501.9985 ####[facility] [address] [place], [address] Sodium [Moles/Vol] 140 mmol/L Normal 133-145 [facility] Comment on above: Performed By: #### L 100.0100, L500.2500, L501.2300, L501.5200, L501.9985 ####[facility] [address] [place], [address] Urea nitrogen [Mass/Vol] 24 mg/dL High 4-19 [facility] Comment on above: Performed By: #### L 100.0100, L500.2500, L501.2300, L501.5200, L501.9985 ####[facility] [address] [place], [address] Bedside Glucoseon 04-16-2025 FINGERSTICK GLU 161 mg/dL High 74-106 [facility] Comment on above: Result Comment: SEFERINO COLON OF PATIENT CARE PER NURSING PROTOCOL Performed By: #### L 501.080 ####[facility] [address] [place], [address] FINGERSTICK GLU 181 mg/dL High 74-106 [facility] Comment on above: Result Comment: SEFERINO GEMENT OF PATIENT CARE PER NURSING PROTOCOL Performed By: #### L 501.080 ####[facility] [address] [place], [address] FINGERSTICK GLU 166 mg/dL High 74-106 [facility] Comment on above: Result Comment: SEFERINO GEMENT OF PATIENT CARE PER NURSING PROTOCOL Performed By: #### L 501.080 ####[facility] [address] [place], [address] FINGERSTICK GLU 159 mg/dL High 74-106 [facility] Comment on above: Result Comment: SEFERINO GEMENT OF PATIENT CARE PER NURSING PROTOCOL Performed By: #### L 501.080 ####[facility] [address] [place], [address] CBC W/Diff, Automatedon 06-0 3-2024 Absolute Lymph 1.34 X10 3/uL Normal 0.83-4.51 [facility] Comment on above: Performed By: #### L 100.0100, L500.2500, L501.2300, L501.5200, L501.9985 ####[facility] [address] [place], [address] Absolute Neut 2.5 X10 3/uL Normal 2.0-7.7 [facility] Comment on above: Performed By: #### L 100.0100, L500.2500, L501.2300, L501.5200, L501.9985 ####[facility] [address] [place], [address] Basophils/100 WBC (Bld) 0.9 % Normal 0-1 [facility] Comment on above: Performed By: #### L 100.0100, L500.2500, L501.2300, L501.5200, L501.9985 ####[facility] [address] [place], [address] Eosinophils/100 WBC (Bld) 5.6 % High 0-5 [facility] Comment on above: Performed By: #### L 100.0100, L500.2500, L501.2300, L501.5200, L501.9985 ####[facility] [address] [place], [address] Erythrocyte distribution width (RBC) [Ratio] 14.5 % Normal 11.6-14.6 [facility] Comment on above: Performed By: #### L 100.0100, L500.2500, L501.2300, L501.5200, L501.9985 ####[facility] [address] [place], [address] Hematocrit (Bld) [Volume fraction] 29.2 % Low 40-54 [facility] Comment on above: Performed By: #### L 100.0100, L500.2500, L501.2300, L501.5200, L501.9985 ####[facility] [address] [place], [address] Hemoglobin (Bld) [Mass/Vol] 10.2 g/dL Low 13.0-16.5 [facility] Comment on above: Performed By: #### L 100.0100, L500.2500, L501.2300, L501.5200, L501.9985 ####[facility] [address] [place], [address] IG% 0.200 Normal 0.0-0.9 [facility] Comment on above: Result Comment: IG% - Immature Granulocytes (promyelocytes, myelocytes andmetamyelocytes) > 1% indicates that a LEFT SHIFT is Present. Performed By: #### L 100.0100, L500.2500, L501.2300, L501.5200, L501.9985 ####[facility] [address] [place], [address] Lymphocytes/100 WBC (Bld) 28.7 % Normal 19-41 [facility] Comment on above: Performed By: #### L 100.0100, L500.2500, L501.2300, L501.5200, L501.9985 ####[facility] [address] [place], [address] MCH (RBC) [Entitic mass] 35.2 pg High 27.0-32.0 [facility] Comment on above: Performed By: #### L 100.0100, L500.2500, L501.2300, L501.5200, L501.9985 ####[facility] [address] [place], [address] MCHC (RBC) [Mass/Vol] 34.9 g/dL Normal 32-36 [facility] Comment on above: Performed By: #### L 100.0100, L500.2500, L501.2300, L501.5200, L501.9985 ####[facility] [address] [place], [address] MCV (RBC) [Entitic vol] 100.7 fL High 80-94 [facility] Comment on above: Performed By: #### L 100.0100, L500.2500, L501.2300, L501.5200, L501.9985 ####[facility] [address] [place], [address] Monocytes/100 WBC (Bld) 12.2 % High 0-10 [facility] Comment on above: Performed By: #### L 100.0100, L500.2500, L501.2300, L501.5200, L501.9985 ####[facility] [address] [place], [address] Neutrophils/100 WBC (Bld) 52.4 % Normal 47-70 [facility] Comment on above: Performed By: #### L 100.0100, L500.2500, L501.2300, L501.5200, L501.9985 ####[facility] [address] [place], [address] Nucleated RBC (Bld) [#/Vol] 0 10*3/uL Normal 0-5 [facility] Comment on above: Performed By: #### L 100.0100, L500.2500, L501.2300, L501.5200, L501.9985 ####[facility] [address] [place], [address] Platelet mean volume (Bld) [Entitic vol] 10.8 fL Normal 6.2-12.0 [facility] Comment on above: Performed By: #### L 100.0100, L500.2500, L501.2300, L501.5200, L501.9985 ####[facility] [address] [place], [address] Platelets (Bld) [#/Vol] 174 10*3/uL Normal 150-450 [facility] Comment on above: Performed By: #### L 100.0100, L500.2500, L501.2300, L501.5200, L501.9985 ####[facility] [address] [place], [address] RBC (Bld) [#/Vol] 2.90 10*6/uL Low 4.6-6.2 [facility] Comment on above: Performed By: #### L 100.0100, L500.2500, L501.2300, L501.5200, L501.9985 ####[facility] [address] [place], [address] RDW SD 52.0 fl High 35.1-43.9 [facility] Comment on above: Performed By: #### L 100.0100, L500.2500, L501.2300, L501.5200, L501.9985 ####[facility] [address] [place], [address] WBC (Bld) [#/Vol] 4.7 10*3/uL Normal 4.4-11.0 [facility] Comment on above: Performed By: #### L 100.0100, L500.2500, L501.2300, L501.5200, L501.9985 ####[facility] [address] [place], [address] Consultation - Infectious Dx on 04-16-2025 Consultation - Infectious Dx Normal [facility] Gram Stainon 04-16-2025 GS List Antibiotics [place] 48 Hours? merrem, vanco, doxycycline Gram Stain Rare Gram negative rods Rare Gram positive cocci No cells seen Normal [facility] Comment on above: Performed By: #### M 100.3000, M100.4001, M100.2000 ####[facility] [address] [place], [address] Hemoglobin A1con 04-16-2025 HbA1c (Bld) [Mass fraction] 7.0 % High <=5.6 [facility] Comment on above: Result Comment: Norm al < 5.7 % Prediabetic 5.7 - 6.4 % Diabetic >or= 6.5 % Please note range changes. Performed By: #### L 100.0100, L500.2500, L501.2300, L501.5200, L501.9985 ####[facility] [address] [place], [address] Hemoglobin A1c percentageOrd ered By: Coco Pepe on 04-16-2025 HbA1c (Bld) [Mass fraction] 7.0 % High <5.7 [facility] Comment on above: Normal < 5.7 % Predi abetic 5.7 - 6.4 % Diabetic >or= 6.5 % Please note range changes. Magnesiumon 04-16-2025 Magnesium [Mass/Vol] 1.9 mg/dL Normal 1.5-2.2 [facility] Comment on above: Performed By: #### L 100.0100, L500.2500, L501.2300, L501.5200, L501.9985 ####[facility] [address] [place], [place], [address] Magnesium measurement (mass/ volume)Ordered By: Coco Pepe on 04-16-2025 Magnesium (Unsp spec) [Mass/Vol] 1.9 mg/dL 1.5-2.2 [facility] Phosphoruson 04-16-2025 Phosphate [Mass/Vol] 3.0 mg/dL Normal 2.7-4.5 [facility] Comment on above: Performed By: #### L 100.0100, L500.2500, L501.2300, L501.5200, L501.9985 ####[facility] [address] [place], [place], [id number] Absolute lymphocyte countOrd ered By: Edgar Gudino on 04-15-2025 Lymphocytes Auto (Unsp spec) [#/Vol] 1.28 10*3/uL 0.83-4.51 [facility] Absolute neutrophil countOrd ered By: Edgar Gudino on 04-15-2025 Neutrophils (Bld) [#/Vol] 3.5 10*3/uL 2.0-7.7 [facility] Anaerobic cultureOrdered By: Coco Pepe on 04-15-2025 Bacteria identified Anaer cx Nom (Unsp spec) No anaerobic bacteria isolated. [facility] Anion gap in Serum or Plasma Ordered By: Edgar Gudino on 04-15-2025 Anion gap [Moles/Vol] 12 mmol/L 5-15 [facility] Automated lymphocyte count a s percentage of total leukocytesOrdered By: Edgar Gudino on 04-15-2025 Lymphocytes/100 WBC Auto (Unsp spec) 21.9 % 19- [facility] BUN/creatinine ratioOrdered By: Edgar Gudino on 04-15-2025 Urea nitrogen/Creatinine [Mass ratio] 19.1 mg/mg 10-20 [facility] Basic Metabolic Profile (BMP )on 04-15-2025 BUN/CRE 19.1 RATIO Normal 10-20 [facility] Comment on above: Performed By: #### L 500.2500, L100.0100, L503.6005, L501.6710, L101.9900 ####[facility] [address] [place], [address] Calcium [Mass/Vol] 9.4 mg/dL Normal 7.6-11.0 [facility] Comment on above: Performed By: #### L 500.2500, L100.0100, L503.6005, L501.6710, L101.9900 ####[facility] [address] [place], [address] Chloride [Moles/Vol] 103 mmol/L Normal 98-108 [facility] Comment on above: Performed By: #### L 500.2500, L100.0100, L503.6005, L501.6710, L101.9900 ####[facility] [address] [place], [address] CO2 [Moles/Vol] 24.3 mmol/L Normal 21.0-32.0 [facility] Comment on above: Performed By: #### L 500.2500, L100.0100, L503.6005, L501.6710, L101.9900 ####[facility] [address] [place], [address] Creatinine [Mass/Vol] 1.38 mg/dL High 0.70-1.20 [facility] Comment on above: Performed By: #### L 500.2500, L100.0100, L503.6005, L501.6710, L101.9900 ####[facility] [address] [place], [address] ECRCL 46.08 ml/min Low 50-250 [facility] Comment on above: Performed By: #### L 500.2500, L100.0100, L503.6005, L501.6710, L101.9900 ####[facility] [address] [place], [address] GAP 12 Normal 5-15 [facility] Comment on above: Performed By: #### L 500.2500, L100.0100, L503.6005, L501.6710, L101.9900 ####[facility] [address] [place], [address] GFR/1.73 sq M.predicted among non-blacks MDRD (S/P/Bld) [Vol rate/Area] 51 mL/min/{1.73_m2} Low >60 [facility] Comment on above: Result Comment: mL/m in/1.73m2 CKD-EPI Creatinine Equation (2020) Performed By: #### L 500.2500, L100.0100, L503.6005, L501.6710, L101.9900 ####[facility] [address] [place], [address] Glucose [Mass/Vol] 183 mg/dL High 70-99 [facility] Comment on above: Performed By: #### L 500.2500, L100.0100, L503.6005, L501.6710, L101.9900 ####[facility] [address] [place], [address] Potassium [Moles/Vol] 3.9 mmol/L Normal 3.3-5.1 [facility] Comment on above: Performed By: #### L 500.2500, L100.0100, L503.6005, L501.6710, L101.9900 ####[facility] [address] [place], [address] Sodium [Moles/Vol] 139 mmol/L Normal 133-145 [facility] Comment on above: Performed By: #### L 500.2500, L100.0100, L503.6005, L501.6710, L101.9900 ####[facility] [address] [place], [address] Urea nitrogen [Mass/Vol] 26 mg/dL High 4-19 [facility] Comment on above: Performed By: #### L 500.2500, L100.0100, L503.6005, L501.6710, L101.9900 ####[facility] [address] [place], [address] Basophil percentageOrdered B y: Edgar Gudino on 04-15-2025 Basophils/100 WBC (Bld) 0.9 % 0-1 [facility] Bedside Glucoseon 04-15-2025 FINGERSTICK GLU 117 mg/dL High 74-106 [facility] Comment on above: Result Comment: SEFERINO COLON OF PATIENT CARE PER NURSING PROTOCOL Performed By: #### L 501.080 ####[facility] [address] [place], [address] Blood cultureOrdered By: Pj Gudino on 04-15-2025 Bacteria identified Cx Nom (Bld) No growth in [address] [facility] Bacteria identified Cx Nom (Bld) No growth in [address] [facility] CBC W/Diff, Automatedon Absolute Lymph 1.28 X10 3/uL Normal 0.83-4.51 [facility] Comment on above: Performed By: #### L 500.2500, L100.0100, L503.6005, L501.6710, L101.9900 ####[facility] [address] [place], [address] Absolute Neut 3.5 X10 3/uL Normal 2.0-7.7 [facility] Comment on above: Performed By: #### L 500.2500, L100.0100, L503.6005, L501.6710, L101.9900 ####[facility] [address] [place], [address] Basophils/100 WBC (Bld) 0.9 % Normal 0-1 [facility] Comment on above: Performed By: #### L 500.2500, L100.0100, L503.6005, L501.6710, L101.9900 ####[facility] [address] [place], [address] Eosinophils/100 WBC (Bld) 5.6 % High 0-5 [facility] Comment on above: Performed By: #### L 500.2500, L100.0100, L503.6005, L501.6710, L101.9900 ####[facility] [address] [place], [address] Erythrocyte distribution width (RBC) [Ratio] 14.3 % Normal 11.6-14.6 [facility] Comment on above: Performed By: #### L 500.2500, L100.0100, L503.6005, L501.6710, L101.9900 ####[facility] [address] [place], [address] Hematocrit (Bld) [Volume fraction] 32.5 % Low 40-54 [facility] Comment on above: Performed By: #### L 500.2500, L100.0100, L503.6005, L501.6710, L101.9900 ####[facility] [address] [place], [address] Hemoglobin (Bld) [Mass/Vol] 11.4 g/dL Low 13.0-16.5 [facility] Comment on above: Performed By: #### L 500.2500, L100.0100, L503.6005, L501.6710, L101.9900 ####[facility] [address] [place], [address] IG% 0.300 Normal 0.0-0.9 [facility] Comment on above: Result Comment: IG% - Immature Granulocytes (promyelocytes, myelocytes andmetamyelocytes) > 1% indicates that a LEFT SHIFT is Present. Performed By: #### L 500.2500, L100.0100, L503.6005, L501.6710, L101.9900 ####[facility] [address] [place], [address] Lymphocytes/100 WBC (Bld) 21.9 % Normal 19-41 [facility] Comment on above: Performed By: #### L 500.2500, L100.0100, L503.6005, L501.6710, L101.9900 ####[facility] [address] [place], [address] MCH (RBC) [Entitic mass] 35.4 pg High 27.0-32.0 [facility] Comment on above: Performed By: #### L 500.2500, L100.0100, L503.6005, L501.6710, L101.9900 ####[facility] [address] [place], [address] MCHC (RBC) [Mass/Vol] 35.1 g/dL Normal 32-36 [facility] Comment on above: Performed By: #### L 500.2500, L100.0100, L503.6005, L501.6710, L101.9900 ####[facility] [address] [place], [address] MCV (RBC) [Entitic vol] 100.9 fL High 80-94 [facility] Comment on above: Performed By: #### L 500.2500, L100.0100, L503.6005, L501.6710, L101.9900 ####[facility] [address] [place], [address] Monocytes/100 WBC (Bld) 12.1 % High 0-10 [facility] Comment on above: Performed By: #### L 500.2500, L100.0100, L503.6005, L501.6710, L101.9900 ####[facility] [address] [place], [address] Neutrophils/100 WBC (Bld) 59.2 % Normal 47-70 [facility] Comment on above: Performed By: #### L 500.2500, L100.0100, L503.6005, L501.6710, L101.9900 ####[facility] [address] [place], [address] Nucleated RBC (Bld) [#/Vol] 0 10*3/uL Normal 0-5 [facility] Comment on above: Performed By: #### L 500.2500, L100.0100, L503.6005, L501.6710, L101.9900 ####[facility] [address] [place], [address] Platelet mean volume (Bld) [Entitic vol] 10.8 fL Normal 6.2-12.0 [facility] Comment on above: Performed By: #### L 500.2500, L100.0100, L503.6005, L501.6710, L101.9900 ####[facility] [address] [place], [address] Platelets (Bld) [#/Vol] 200 10*3/uL Normal 150-450 [facility] Comment on above: Performed By: #### L 500.2500, L100.0100, L503.6005, L501.6710, L101.9900 ####[facility] [address] [place], [address] RBC (Bld) [#/Vol] 3.22 10*6/uL Low 4.6-6.2 [facility] Comment on above: Performed By: #### L 500.2500, L100.0100, L503.6005, L501.6710, L101.9900 ####[facility] [address] [place], [address] RDW SD 51.8 fl High 35.1-43.9 [facility] Comment on above: Performed By: #### L 500.2500, L100.0100, L503.6005, L501.6710, L101.9900 ####[facility] [address] [place], [address] WBC (Bld) [#/Vol] 5.9 10*3/uL Normal 4.4-11.0 [facility] Comment on above: Performed By: #### L 500.2500, L100.0100, L503.6005, L501.6710, L101.9900 ####[facility] [address] [place], [address] CRPon 04-15-2025 C-REACTIVE PROT 30.60 mg/L High 0.0-3.0 [facility] Comment on above: Performed By: #### L 501.6710, L101.9900 ####[facility] [address] [place], [address] C-REACTIVE PROT 30.20 mg/L High 0.0-3.0 [facility] Comment on above: Performed By: #### L 500.2500, L100.0100, L503.6005, L501.6710, L101.9900 ####[facility] [address] [place], [address] Carbon dioxide, total [Moles /volume] in Central venous bloodOrdered By: Edgar Gudino on 04-15-2025 CO2 [Moles/Vol] 24.3 mmol/L 21.0-32.0 [facility] Chloride assayOrdered By: Candelario Gudino on 04-15-2025 Chloride [Moles/Vol] 103 mmol/L 98-108 [facility] Emergency Department Summary on 04-15-2025 [address] [facility] Eosinophil percentageOrdered By: Edgar Gudino on 04-15-2025 Eosinophils/100 WBC (Bld) 5.6 % High 0-5 [facility] Erythrocyte Sed Rateon 04-15 SED RATE 10 mm/hr Normal 0-20 [facility] Comment on above: Performed By: #### L 501.6710, L101.9900 ####[facility] [address] [place], [place], [id number] SED RATE 21 mm/hr High 0-20 [facility] Comment on above: Performed By: #### L 500.2500, L100.0100, L503.6005, L501.6710, L101.9900 ####[facility] [address] [place], [place], [id number] Erythrocyte distribution wid th ratioOrdered By: Edgar Gudino on 04-15-2025 Erythrocyte distribution width (RBC) [Ratio] 14.3 % 11.6-14.6 [facility] Erythrocyte distribution wid th standard deviationOrdered By: Edgar Manning on 04-15-2025 Erythrocyte distribution width (RBC) [Ratio] 51.8 fl High 35.1-43.9 [facility] [facility] Erythrocyte sedimentation ra teOrdered By: Coco Pepe on 04-15-2025 ESR (Bld) [Velocity] 10 mm/h 0-20 [facility] Erythrocyte sedimentation ra teOrdered By: Edgar Gudino on 04-15-2025 ESR (Bld) [Velocity] 21 mm/h High 0-20 [facility] Foot min 3 Viewson 5 Foot min [address] [facility] Glomerular filtration rate ( GFR) estimation/1.73 sq m using serum, plasma, or whole bOrdered By: Edgar Gudino on 04-15-2025 GFR/1.73 sq M.predicted among non-blacks MDRD (S/P/Bld) [Vol rate/Area] 51 mL/min/{1.73_m2} Low >60 [facility] Comment on above: mL/min/1.73m2 CKD-EP I Creatinine Equation (2020) Gram stainOrdered By: Coco Pepe on 04-15-2025 Microscopic observation Gram stain Nom (Unsp spec) [facility] H AND P Exam - Hospitaliston 04-15-2025 H&P Exam - Hospitalist Normal [facility] Hematocrit Auto (Bld) [Volum e fraction]Ordered By: Edgar Gudino on 04-15-2025 Hematocrit (Bld) [Volume fraction] 32.5 % Low 40-54 [facility] Hemoglobin measurementOrdere d By: Edgar Gudino on 04-15-2025 Hemoglobin (Bld) [Mass/Vol] 11.4 g/dL Low 13.0-16.5 [facility] Immature granulocytes/100 WB C Auto (Bld)Ordered By: Edgar Gudino on 04-15-2025 Immature granulocytes/100 WBC (Bld) 0.300 % 0.0-0.9 [facility] Comment on above: IG% - Immature Granu locytes (promyelocytes, myelocytes and metamyelocytes) > 1% indicates that a LEFT SHIFT is Present. Lactic Acidon 04-15-2025 Lactate [Moles/Vol] 1.6 mmol/L Normal 0.0-2.0 [facility] Comment on above: Order Comment: Y Performed By: #### L 500.2500, L100.0100, L503.6005, L501.6710, L101.9900 ####[facility] [address] [place], [address] Lactic acid measurementOrder ed By: Edgar Gudino on 04-15-2025 Lactate [Moles/Vol] 1.6 mmol/L 0.0-2.0 [facility] Lower Ext No Joint W/WO Cont on 04-15-2025 Lower Ext No Joint W/WO Cont Normal [facility] M8200.1075on 04-15-[address] [facility] Comment on above: Performed By: #### M 8200.1075 ####[facility] [address] [place], [address] MCV (mean corpuscular volume ) determinationOrdered By: Edgar Gudino on 04-15-2025 MCV (RBC) [Entitic vol] 100.9 fL High 80-94 [facility] Mean corpuscular hemoglobin (MCH) determinationOrdered By: Edgar Gudino on 04-15-2025 MCH (RBC) [Entitic mass] 35.4 pg High 27.0-32.0 [facility] Mean corpuscular hemoglobin concentration (MCHC) determinationOrdered By: Edgar Gudino on 04-15-2025 MCHC (RBC) [Mass/Vol] 35.1 g/dL 32-36 [facility] Mean platelet volume determi nationOrdered By: Edgar Gudino on 04-15-2025 Platelet mean volume (Bld) [Entitic vol] 10.8 fL 6.2-12.0 [facility] Monocyte percentageOrdered B y: Edgar Gudino on 04-15-2025 Monocytes/100 WBC (Bld) 12.1 % High 0-10 [facility] Neutrophil percentageOrdered By: Edgar Gudino on 04-15-2025 Neutrophils/100 WBC (Bld) 59.2 % 47-70 [facility] Nucleated red blood cell per centageOrdered By: Edgar Gudino on 04-15-2025 Nucleated RBC/100 WBC (Bld) [Ratio] 0 % 0-5 [facility] Platelet countOrdered By: Candelario Gudino on 04-15-2025 Platelets (Bld) [#/Vol] 200 10*3/uL 150-450 [facility] Potassium measurement (mass/ volume)Ordered By: Edgar Gudino on 04-15-2025 Potassium (Unsp spec) [Mass/Vol] 3.9 mmol/L 3.3-5.1 [facility] RBC Auto (Bld) [#/Vol]Ordere d By: Edgar Gudino on 04-15-2025 RBC (Bld) [#/Vol] 3.22 10*6/uL Low 4.6-6.2 [facility] Serum creatinine measurement (mass/volume)Ordered By: Edgar Gudino on 04-15-2025 Creatinine [Mass/Vol] 1.38 mg/dL High 0.70-1.20 [facility] Serum glucose measurement (m ass/volume)Ordered By: Edgar Gudino on 04-15-2025 Glucose [Mass/Vol] 183 mg/dL High 70-99 [facility] Serum or plasma C reactive p rotein measurement (mass/volume)Ordered By: Coco Pepe on 04-15-2025 CRP [Mass/Vol] 30.60 mg/L High 0.0-3.0 [facility] Serum or plasma C reactive p rotein measurement (mass/volume)Ordered By: Edgar Gudino on 04-15-2025 CRP [Mass/Vol] 30.20 mg/L High 0.0-3.0 [facility] Serum or plasma calcium amadou urement (mass/volume)Ordered By: Edgar Manning on 04-15-2025 Calcium [Mass/Vol] 9.4 mg/dL 7.6-11.0 [facility] Serum or plasma urea nitroge n measurement (mass/volume)Ordered By: Edgar Gudino on 04-15-2025 Urea nitrogen [Mass/Vol] 26 mg/dL High 4-19 [facility] Sodium levelOrdered By: Aly Gudino on 04-15-2025 Sodium [Moles/Vol] 139 mmol/L 133-145 [facility] White blood cell (WBC) count Ordered By: Edgar Gudino on 04-15-2025 WBC (Bld) [#/Vol] 5.9 10*3/uL 4.4-11.0 [facility] Foot min 3 Viewson 5 Foot min [address] [facility] 12 Lead EKG performed by BMS on 03-08-2025 12 Lead EKG performed by BMS Normal [facility] Cardiology Visit Reporton Cardiology Visit Report Normal [facility] AST(SGOT)on 02-26-2025 AST [Catalytic activity/Vol] 35 U/L Normal <=37 [facility] Comment on above: Performed By: #### L 501.4100, L501.1105, L100.0100, L501.4405, L101.9900, L501.6710 ####[facility] [address] [place], [place], [id number] Absolute lymphocyte countOrd ered By: Coco Shah on 02-26-2025 Lymphocytes Auto (Unsp spec) [#/Vol] 2.01 10*3/uL 0.83-4.51 [facility] Absolute neutrophil countOrd ered By: Coco Shah on 02-26-2025 Neutrophils (Bld) [#/Vol] 2.2 10*3/uL 2.0-7.7 [facility] Alanine Aminotransferas (SGP T)on 02-26-2025 ALT [Catalytic activity/Vol] 32 U/L Normal <=46 [facility] Comment on above: Performed By: #### L 501.4100, L501.1105, L100.0100, L501.4405, L101.9900, L501.6710 ####[facility] [address] [place], [place], [id number] Automated lymphocyte count a s percentage of total leukocytesOrdered By: Coco Shah on 02-26-2025 Lymphocytes/100 WBC Auto (Unsp spec) 39.8 % 19-41 [facility] Basophil percentageOrdered B y: Coco Shah on 02-26-2025 Basophils/100 WBC (Bld) 0.6 % 0-1 [facility] CBC W/Diff, Automatedon 02-12 Absolute Lymph 2.01 X10 3/uL Normal 0.83-4.51 [facility] Comment on above: Performed By: #### L 501.4100, L501.1105, L100.0100, L501.4405, L101.9900, L501.6710 ####[facility] [address] [place], [address] Absolute Neut 2.2 X10 3/uL Normal 2.0-7.7 [facility] Comment on above: Performed By: #### L 501.4100, L501.1105, L100.0100, L501.4405, L101.9900, L501.6710 ####[facility] [address] [place], [address] Basophils/100 WBC (Bld) 0.6 % Normal 0-1 [facility] Comment on above: Performed By: #### L 501.4100, L501.1105, L100.0100, L501.4405, L101.9900, L501.6710 ####[facility] [address] [place], [address] Eosinophils/100 WBC (Bld) 5.7 % High 0-5 [facility] Comment on above: Performed By: #### L 501.4100, L501.1105, L100.0100, L501.4405, L101.9900, L501.6710 ####[facility] [address] [place], [address] Erythrocyte distribution width (RBC) [Ratio] 14.3 % Normal 11.6-14.6 [facility] Comment on above: Performed By: #### L 501.4100, L501.1105, L100.0100, L501.4405, L101.9900, L501.6710 ####[facility] [address] [place], [address] Hematocrit (Bld) [Volume fraction] 33.7 % Low 40-54 [facility] Comment on above: Performed By: #### L 501.4100, L501.1105, L100.0100, L501.4405, L101.9900, L501.6710 ####[facility] [address] [place], [address] Hemoglobin (Bld) [Mass/Vol] 11.9 g/dL Low 13.0-16.5 [facility] Comment on above: Performed By: #### L 501.4100, L501.1105, L100.0100, L501.4405, L101.9900, L501.6710 ####[facility] [address] [place], [address] IG% 0.200 Normal 0.0-0.9 [facility] Comment on above: Result Comment: IG% - Immature Granulocytes (promyelocytes, myelocytes andmetamyelocytes) > 1% indicates that a LEFT SHIFT is Present. Performed By: #### L 501.4100, L501.1105, L100.0100, L501.4405, L101.9900, L501.6710 ####[facility] [address] [place], [address] Lymphocytes/100 WBC (Bld) 39.8 % Normal 19-41 [facility] Comment on above: Performed By: #### L 501.4100, L501.1105, L100.0100, L501.4405, L101.9900, L501.6710 ####[facility] [address] [place], [address] MCH (RBC) [Entitic mass] 33.7 pg High 27.0-32.0 [facility] Comment on above: Performed By: #### L 501.4100, L501.1105, L100.0100, L501.4405, L101.9900, L501.6710 ####[facility] [address] [place], [address] MCHC (RBC) [Mass/Vol] 35.3 g/dL Normal 32-36 [facility] Comment on above: Performed By: #### L 501.4100, L501.1105, L100.0100, L501.4405, L101.9900, L501.6710 ####[facility] [address] [place], [address] MCV (RBC) [Entitic vol] 95.5 fL High 80-94 [facility] Comment on above: Performed By: #### L 501.4100, L501.1105, L100.0100, L501.4405, L101.9900, L501.6710 ####[facility] [address] [place], [address] Monocytes/100 WBC (Bld) 10.7 % High 0-10 [facility] Comment on above: Performed By: #### L 501.4100, L501.1105, L100.0100, L501.4405, L101.9900, L501.6710 ####[facility] [address] [place], [address] Neutrophils/100 WBC (Bld) 43.0 % Low 47-70 [facility] Comment on above: Performed By: #### L 501.4100, L501.1105, L100.0100, L501.4405, L101.9900, L501.6710 ####[facility] [address] [place], [address] Nucleated RBC (Bld) [#/Vol] 0 10*3/uL Normal 0-5 [facility] Comment on above: Performed By: #### L 501.4100, L501.1105, L100.0100, L501.4405, L101.9900, L501.6710 ####[facility] [address] [place], [address] Platelet mean volume (Bld) [Entitic vol] 10.8 fL Normal 6.2-12.0 [facility] Comment on above: Performed By: #### L 501.4100, L501.1105, L100.0100, L501.4405, L101.9900, L501.6710 ####[facility] [address] [place], [address] Platelets (Bld) [#/Vol] 278 10*3/uL Normal 150-450 [facility] Comment on above: Performed By: #### L 501.4100, L501.1105, L100.0100, L501.4405, L101.9900, L501.6710 ####[facility] [address] [place], [address] RBC (Bld) [#/Vol] 3.53 10*6/uL Low 4.6-6.2 [facility] Comment on above: Performed By: #### L 501.4100, L501.1105, L100.0100, L501.4405, L101.9900, L501.6710 ####[facility] [address] [place], [address] RDW SD 48.7 fl High 35.1-43.9 [facility] Comment on above: Performed By: #### L 501.4100, L501.1105, L100.0100, L501.4405, L101.9900, L501.6710 ####[facility] [address] [place], [address] WBC (Bld) [#/Vol] 5.1 10*3/uL Normal 4.4-11.0 [facility] Comment on above: Performed By: #### L 501.4100, L501.1105, L100.0100, L501.4405, L101.9900, L501.6710 ####[facility] [address] [place], [address] CRPon 02-26-2025 C-REACTIVE PROT < 3.00 Normal 0.0-3.0 [facility] Comment on above: Performed By: #### L 501.4100, L501.1105, L100.0100, L501.4405, L101.9900, L501.6710 ####[facility] [address] [place], [place], [address] Eosinophil percentageOrdered By: Coco Shah on 02-26-2025 Eosinophils/100 WBC (Bld) 5.7 % High 0-5 [facility] Erythrocyte Sed Rateon 02-26 SED RATE 3 mm/hr Normal 0-20 [facility] Comment on above: Performed By: #### L 501.4100, L501.1105, L100.0100, L501.4405, L101.9900, L501.6710 ####[facility] [address] [place], [place], [address] Erythrocyte distribution wid th ratioOrdered By: Coco Shah on 02-26-2025 Erythrocyte distribution width (RBC) [Ratio] 14.3 % 11.6-14.6 [facility] Erythrocyte distribution wid th standard deviationOrdered By: Coco Shah on 02-26-2025 Erythrocyte distribution width (RBC) [Ratio] 48.7 fl High 35.1-43.9 [facility] Erythrocyte sedimentation ra teOrdered By: Coco Shah on 02-26-2025 ESR (Bld) [Velocity] 3 mm/h 0-20 [facility] Glomerular filtration rate ( GFR) estimation/1.73 sq m using serum, plasma, or whole bOrdered By: Coco Shah on 02-26-2025 GFR/1.73 sq M.predicted among non-blacks MDRD (S/P/Bld) [Vol rate/Area] 42 mL/min/{1.73_m2} Low >60 [facility] Comment on above: mL/min/1.73m2 CKD-EP I Creatinine Equation (2020) Hematocrit Auto (Bld) [Volum e fraction]Ordered By: Coco Shah on 02-26-2025 Hematocrit (Bld) [Volume fraction] 33.7 % Low 40-54 [facility] Hemoglobin measurementOrdere d By: Coco Shah on 02-26-2025 Hemoglobin (Bld) [Mass/Vol] 11.9 g/dL Low 13.0-16.5 [facility] Immature granulocytes/100 WB C Auto (Bld)Ordered By: Coco Shah on 02-26-2025 Immature granulocytes/100 WBC (Bld) 0.200 % 0.0-0.9 [facility] Comment on above: IG% - Immature Granu locytes (promyelocytes, myelocytes and metamyelocytes) > 1% indicates that a LEFT SHIFT is Present. Laboratory - Chemistry and C hemistry - challengeOrdered By: Coco Shah on 02-26-2025 AST [Catalytic activity/Vol] 35 U/L <38 [facility] MCV (mean corpuscular volume ) determinationOrdered By: Coco Shah on 02-26-2025 MCV (RBC) [Entitic vol] 95.5 fL High 80-94 [facility] Mean corpuscular hemoglobin (MCH) determinationOrdered By: Coco Shah 02-26-2025 MCH (RBC) [Entitic mass] 33.7 pg High 27.0-32.0 [facility] Mean corpuscular hemoglobin concentration (MCHC) determinationOrdered By: Coco Shah on 02-26-2025 MCHC (RBC) [Mass/Vol] 35.3 g/dL 32-36 [facility] Mean platelet volume determi nationOrdered By: Coco Shah on 02-26-2025 Platelet mean volume (Bld) [Entitic vol] 10.8 fL 6.2-12.0 [facility] Monocyte percentageOrdered B y: Coco Shah on 02-26-2025 Monocytes/100 WBC (Bld) 10.7 % High 0-10 [facility] Neutrophil percentageOrdered By: Coco Shah on 02-26-2025 Neutrophils/100 WBC (Bld) 43.0 % Low 47-70 [facility] Nucleated red blood cell per centageOrdered By: Coco Shah on 02-26-2025 Nucleated RBC/100 WBC (Bld) [Ratio] 0 % 0-5 [facility] Platelet countOrdered By: Filemon Shah on 02-26-2025 Platelets (Bld) [#/Vol] 278 10*3/uL 150-450 [facility] RBC Auto (Bld) [#/Vol]Ordere d By: Coco Shah on 02-26-2025 RBC (Bld) [#/Vol] 3.53 10*6/uL Low 4.6-6.2 [facility] Serum Creatinine AND GFRon 0 02-26-2025 Creatinine [Mass/Vol] 1.64 mg/dL High 0.70-1.20 [facility] Comment on above: Performed By: #### L 501.4100, L501.1105, L100.0100, L501.4405, L101.9900, L501.6710 ####[facility] [address] [place], [place], [id number] GFR/1.73 sq M.predicted among non-blacks MDRD (S/P/Bld) [Vol rate/Area] 42 mL/min/{1.73_m2} Low >60 [facility] Comment on above: Result Comment: mL/m in/1.73m2 CKD-EPI Creatinine Equation (2020) Performed By: #### L 501.4100, L501.1105, L100.0100, L501.4405, L101.9900, L501.6710 ####[facility] [address] [place], [place], [id number] Serum creatinine measurement (mass/volume)Ordered By: Coco Shah on 02-26-2025 Creatinine [Mass/Vol] 1.64 mg/dL High 0.70-1.20 [facility] Serum or plasma C reactive p rotein measurement (mass/volume)Ordered By: Coco Shah on 02-26-2025 CRP [Mass/Vol] mg/L 0.0-3.0 [facility] Serum or plasma alanine pham otransferase (ALT) measurementOrdered By: Coco Shah on 02-26-2025 ALT [Catalytic activity/Vol] 32 U/L <47 [facility] White blood cell (WBC) count Ordered By: Coco Shah on 02-26-2025 WBC (Bld) [#/Vol] 5.1 10*3/uL 4.4-11.0 [facility] MR/BMS.BVHesham 01-09-2025 MR/BMS.BVS Normal [facility] Office Visiton 10-31-2024 Follow-up visit [id number] Yessi Hatch 1945 M Date Provider Department Center 10/31/2024 [id number] [facility] None No family history on file Level of Service:93188 [place] OFFICE/OUTPATIENT ESTABLISHED MOD MDM 30 MIN Reason for Visit and Comments: Actinic Keratosis [[id number]] - EVAN 07/11/[address] Moore (AT) [facility] Progress Noteon 10-31-2024 Progress Note DATE OF SERVICE: 10/31/2024 PATIENT NAME: Yessi Hatch : 1945 AGE: 79 y.o. CLINIC NUMBER: [id number] Visit type: Established patient Chief Complaint Patient [...] or Adhesive? No. 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 Excessive sun exposure: Yes Used tanning beds: [...] (10) Left Forehead, Left Parotid Area, Left Uatsdin, Left Temporal Scalp, Left Zygomatic Area, Right Forehead, Right Parotid Area, Right Uatsdin, Right Temporal Scalp, Right Zygomatic Area Widespread [...] on face, armpits, groin Risks associated with emt intermediate topical steroid use reviewed in detail. Patient [...] Moore MD 10/31/24 10:46 AM REFERRING MD: [facility] Albumin to globulin ratioOrd ered By: Zach Turner on 10-30-2024 Albumin/Globulin [Mass ratio] 0.8 {ratio} Low 0.9-2.4 [facility] Bilirubin, totalOrdered By: Zach Turner on 10-30-2024 Bilirubin [Mass/Vol] 0.50 mg/dL 0.20-1.00 [facility] Comment on above: For patients on eltr ombopag therapy, use of Dimension [place] TBIL is not recommended. Blood urea nitrogen (BUN)/cr eatinine ratioOrdered By: Zach Turner on 10-30-2024 Urea nitrogen/Creatinine [Mass ratio] 16.2 mg/mg 10-20 [facility] Carbon dioxide measurementOr dered By: Zach Turner on 10-30-2024 CO2 [Moles/Vol] 26.0 mmol/L 21.0-32.0 [facility] Chloride measurementOrdered By: Zach Turner on 10-30-2024 Chloride [Moles/Vol] 106 mmol/L 98-107 [facility] Comprehensive Metabolic Prof ilon 10-30-2024 Albumin [Mass/Vol] 3.4 g/dL Normal 3.2-5.0 [facility] Comment on above: Order Comment: Order Date: 10/30/24Order Info: 0786-1 - CMP Performed By: #### L 500.4050 ####[facility] [address] [place], [address] Albumin/Globulin [Mass ratio] 0.8 {ratio} Low 0.9-2.4 [facility] Comment on above: Order Comment: Order Date: 10/30/24Order Info: 0786-1 - CMP Performed By: #### L 500.4050 ####[facility] [address] [place], [address] ALK P 110 U/L Normal 45-117 [facility] Comment on above: Order Comment: Order Date: 10/30/24Order Info: 0786-1 - CMP Performed By: #### L 500.4050 ####[facility] [address] [place], [address] ALT [Catalytic activity/Vol] 31 U/L Normal 16-61 [facility] Comment on above: Order Comment: Order Date: 10/30/24Order Info: 0786-1 - CMP Performed By: #### L 500.4050 ####[facility] [address] [place], [address] AST [Catalytic activity/Vol] 26 U/L Normal 15-37 [facility] Comment on above: Order Comment: Order Date: 10/30/24Order Info: 0786-1 - CMP Performed By: #### L 500.4050 ####[facility] [address] [place], [address] Bilirubin [Mass/Vol] 0.50 mg/dL Normal 0.20-1.00 [facility] Comment on above: Order Comment: Order Date: 10/30/24Order Info: 0786-1 - CMP Result Comment: For patients on eltrombopag therapy, use of Dimension [place] TBIL is not recommended. Performed By: #### L 500.4050 ####[facility] [address] [place], [address] BUN/CRE 16.2 RATIO Normal 10-20 [facility] Comment on above: Order Comment: Order Date: 10/30/24Order Info: 0786-1 - CMP Performed By: #### L 500.4050 ####[facility] [address] [place], [address] CA,Total 9.8 mg/dL Normal 8.5-10.1 [facility] Comment on above: Order Comment: Order Date: 10/30/24Order Info: 0786-1 - CMP Performed By: #### L 500.4050 ####[facility] [address] [place], [address] Chloride [Moles/Vol] 106 mmol/L Normal 98-107 [facility] Comment on above: Order Comment: Order Date: 10/30/24Order Info: 07-1 - CMP Performed By: #### L 500.4050 ####[facility] [address] [place], [address] CO2 [Moles/Vol] 26.0 mmol/L Normal 21.0-32.0 [facility] Comment on above: Order Comment: Order Date: 10/30/24Order Info: 0786-1 - CMP Performed By: #### L 500.4050 ####[facility] [address] [place], [address] Creatinine [Mass/Vol] 1.36 mg/dL High 0.70-1.30 [facility] Comment on above: Order Comment: Order Date: 10/30/24Order Info: 0786-1 - CMP Result Comment: The validity of the calculated GFR GFRAA in patients over70 years has not been determined. Clinical correlation isessential. Performed By: #### L 500.4050 ####[facility] [address] [place], [address] EST GFR - AA 65 mL/min Normal >60 [facility] Comment on above: Order Comment: Order Date: 10/30/24Order Info: 0786-1 - CMP Result Comment: Afri can Vincentian GFR Calc Performed By: #### L 500.4050 ####[facility] [address] [place], [id number] GAP 5 Normal 5-15 [facility] Comment on above: Order Comment: Order Date: 10/30/24Order Info: 0786-1 - CMP Performed By: #### L 500.4050 ####[facility] [address] [place], [address] GFR/1.73 sq M.predicted among non-blacks MDRD (S/P/Bld) [Vol rate/Area] 53 mL/min/{1.73_m2} Low >60 [facility] Comment on above: Order Comment: Order Date: 10/30/24Order Info: 0786-1 - CMP Result Comment: Non- GFR Calc Performed By: #### L 500.4050 ####[facility] [address] [place], [place], [id number] Globulin (S) [Mass/Vol] 4.2 g/dL Normal 2.2-4.2 [facility] Comment on above: Order Comment: Order Date: 10/30/24Order Info: 0786-1 - CMP Performed By: #### L 500.4050 ####[facility] [address] [place], [address] Glucose [Mass/Vol] 195 mg/dL High 74-106 [facility] Comment on above: Order Comment: Order Date: 10/30/24Order Info: 0786-1 - CMP Result Comment: Fast ing Glucose result greater than or equal to 126 mg/dLsuggests DIABETES MELLITUS per A.D.A. criteria. Performed By: #### L 500.4050 ####[facility] [address] [place], [place], [id number] Potassium [Moles/Vol] 3.9 mmol/L Normal 3.5-5.1 [facility] Comment on above: Order Comment: Order Date: 10/30/24Order Info: 0786-1 - CMP Performed By: #### L 500.4050 ####[facility] [address] [place], [address] Sodium [Moles/Vol] 138 mmol/L Normal 136-145 [facility] Comment on above: Order Comment: Order Date: 10/30/24Order Info: 0786-1 - CMP Performed By: #### L 500.4050 ####[facility] [address] [place], [address] T PROT 7.6 g/dL Normal 6.4-8.2 [facility] Comment on above: Order Comment: Order Date: 10/30/24Order Info: 0786-1 - CMP Performed By: #### L 500.4050 ####[facility] [address] [place], [address] Urea nitrogen [Mass/Vol] 22 mg/dL High 7-18 [facility] Comment on above: Order Comment: Order Date: 10/30/24Order Info: 0786-1 - CMP Performed By: #### L 500.4050 ####[facility] [address] [place], [address] Estimated glomerular filtrat ion rate (GFR) AmericanOrdered By: Zach Turner on 10-30-2024 Estimated GFR (MDRD) Amer 65 mL/min >60 [facility] Comment on above: GFR Calc Glomerular filtration rate ( GFR) estimationOrdered By: Zach Turner on 10-30-2024 Estimated GFR (MDRD) Non-Af Amer 53 mL/min Low >60 [facility] Comment on above: Non- GFR Calc Glucose measurementOrdered B y: Zach Turner on 10-30-2024 Glucose [Mass/Vol] 195 mg/dL High 74-106 [facility] Comment on above: Fasting Glucose resu lt greater than or equal to 126 mg/dL suggests DIABETES MELLITUS per A.D.A. criteria. Laboratory - Chemistry and C hemistry - challengeOrdered By: Zach Turner on 10-30-2024 AST [Catalytic activity/Vol] 26 U/L 15-37 [facility] Potassium measurementOrdered By: Zach Turner on 10-30-2024 Potassium [Moles/Vol] 3.9 mmol/L 3.5-5.1 [facility] Serum anion gap measurementO rdered By: Zach Turner on 10-30-2024 Anion gap [Moles/Vol] 5 mmol/L 5-15 [facility] Serum globulin measurementOr dered By: Zach Turner on 10-30-2024 Globulin (S) [Mass/Vol] 4.2 g/dL 2.2-4.2 [facility] Serum or plasma alanine pham otransferase (ALT) measurementOrdered By: Zach Turner on 10-30-2024 ALT [Catalytic activity/Vol] 31 U/L 16-61 [facility] Serum or plasma albumin amadou urement (mass/volume)Ordered By: Zach Turner on 10-30-2024 Albumin [Mass/Vol] 3.4 g/dL 3.2-5.0 [facility] Serum or plasma alkaline jovana sphatase measurementOrdered By: Zach Turner on 10-30-2024 ALP [Catalytic activity/Vol] 110 U/L 45-117 [facility] Serum or plasma calcium amadou urement (mass/volume)Ordered By: Zach Turner on 10-30-2024 Calcium [Mass/Vol] 9.8 mg/dL 8.5-10.1 [facility] Serum or plasma creatinine m easurement (mass/volume)Ordered By: Zach Turner on 10-30-2024 Creatinine [Mass/Vol] 1.36 mg/dL High 0.70-1.30 [facility] Comment on above: The validity of the calculated GFR & GFRAA in patients over 70 years has not been determined. Clinical correlation is essential. Serum or plasma urea nitroge n measurement (mass/volume)Ordered By: Zach Turner on 10-30-2024 Urea nitrogen [Mass/Vol] 22 mg/dL High 7-18 [facility] Sodium levelOrdered By: Zach Turner on 10-30-2024 Sodium [Moles/Vol] 138 mmol/L 136-145 [facility] Total proteinOrdered By: Ksenia Turner on 10-30-2024 Protein [Mass/Vol] 7.6 g/dL 6.4-8.2 [facility] Basic Metabolic Profile (BMP )on 10-08-2024 BUN/CRE 20.0 RATIO Normal 10-20 [facility] Comment on above: Order Comment: Order Date: 10/02/24Order Info: 666-11 - BMP Performed By: #### L 500.2500 ####[facility] [address] [place], [address] CA,Total 10.0 mg/dL Normal 8.5-10.1 [facility] Comment on above: Order Comment: Order Date: 10/02/24Order Info: 666-11 - BMP Performed By: #### L 500.2500 ####[facility] [address] [place], [address] Chloride [Moles/Vol] 106 mmol/L Normal 98-107 [facility] Comment on above: Order Comment: Order Date: 10/02/24Order Info: 666-11 - BMP Performed By: #### L 500.2500 ####[facility] [address] [place], [address] CO2 [Moles/Vol] 26.0 mmol/L Normal 21.0-32.0 [facility] Comment on above: Order Comment: Order Date: 10/02/24Order Info: 666-11 - BMP Performed By: #### L 500.2500 ####[facility] [address] [place], [address] Creatinine [Mass/Vol] 1.40 mg/dL High 0.70-1.30 [facility] Comment on above: Order Comment: Order Date: 10/02/24Order Info: 666-11 - BMP Result Comment: The validity of the calculated GFR GFRAA in patients over70 years has not been determined. Clinical correlation isessential. Performed By: #### L 500.2500 ####[facility] [address] [place], [address] EST GFR - AA 63 mL/min Normal >60 [facility] Comment on above: Order Comment: Order Date: 10/02/24Order Info: 666-11 - BMP Result Comment: Afri can Vincentian GFR Calc Performed By: #### L 500.2500 ####[facility] [address] [place], [address] GAP 8 Normal 5-15 [facility] Comment on above: Order Comment: Order Date: 10/02/24Order Info: 666-11 - BMP Performed By: #### L 500.2500 ####[facility] [address] [place], [address] GFR/1.73 sq M.predicted among non-blacks MDRD (S/P/Bld) [Vol rate/Area] 52 mL/min/{1.73_m2} Low >60 [facility] Comment on above: Order Comment: Order Date: 10/02/24Order Info: 666-11 - BMP Result Comment: Non- GFR Calc Performed By: #### L 500.2500 ####[facility] [address] [place], [address] Glucose [Mass/Vol] 169 mg/dL High 74-106 [facility] Comment on above: Order Comment: Order Date: 10/02/24Order Info: 666-11 - BMP Result Comment: Fast ing Glucose result greater than or equal to 126 mg/dLsuggests DIABETES MELLITUS per A.D.A. criteria. Performed By: #### L 500.2500 ####[facility] [address] [place], [address] Potassium [Moles/Vol] 4.1 mmol/L Normal 3.5-5.1 [facility] Comment on above: Order Comment: Order Date: 10/02/24Order Info: 666-11 - BMP Performed By: #### L 500.2500 ####[facility] [address] [place], [address] Sodium [Moles/Vol] 140 mmol/L Normal 136-145 [facility] Comment on above: Order Comment: Order Date: 10/02/24Order Info: 0667-1 - BMP Performed By: #### L 500.2500 ####[facility] [address] [place], [address] Urea nitrogen [Mass/Vol] 28 mg/dL High 05-31 [facility] Comment on above: Order Comment: Order Date: 10/02/24Order Info: 0667-1 - BMP Performed By: #### L 500.2500 ####[facility] [address] [place], [address] CRPon 10-02-2024 C-REACTIVE PROT 9.97 mg/L High 0.0-3.0 [facility] Comment on above: Order Comment: Order Date: 10/02/24Order Info: 29850-8 - CRP Result Comment: C-Re active Protein (CRP) provides useful information for thediagnosis, therapy and monitoring of inflammatory processesand associated diseases. For the evaluation of Relative Riskfor Cardiovascular Disease, a High Sensitivity CRP (HSCRP)should be ordered. Performed By: #### L 501.6710, L101.9900 ####[facility] [address] [place], [address] Erythrocyte Sed Rateon 10-02 SED RATE 16 mm/hr Normal 0-20 [facility] Comment on above: Order Comment: Order Date: 10/02/24Order Info: 14904-8 - SED Performed By: #### L 501.6710, L101.9900 ####[facility] [address] [place], [address] Emergency Department Summary on 09-30-2024 Emergency Department Summary Normal [facility] BUNon 09-07-2024 Urea nitrogen [Mass/Vol] 26 mg/dL High 05-31 [facility] Comment on above: Performed By: #### L 501.1000, L400.0001, L501.1105 ####[facility] [address] [place], [address] Serum Creatinine AND GFRon 1 Creatinine [Mass/Vol] 1.40 mg/dL High 0.70-1.30 [facility] Comment on above: Result Comment: The validity of the calculated GFR GFRAA in patients over70 years has not been determined. Clinical correlation isessential. Performed By: #### L 501.1000, L400.0001, L501.1105 ####[facility] [address] [place], [address] EST GFR - AA 63 mL/min Normal >60 [facility] Comment on above: Result Comment: Afri can Vincentian GFR Calc Performed By: #### L 501.1000, L400.0001, L501.1105 ####[facility] [address] [place], [address] GFR/1.73 sq M.predicted among non-blacks MDRD (S/P/Bld) [Vol rate/Area] 52 mL/min/{1.73_m2} Low >60 [facility] Comment on above: Result Comment: Non- GFR Calc Performed By: #### L 501.1000, L400.0001, L501.1105 ####[facility] [address] [place], [address] Urinalysis, Completeon 09-07 BACTERIA 0 SEEN Normal None Seen [facility] Comment on above: Order Comment: CLEAN CATCH Performed By: #### L 501.1000, L400.0001, L501.1105 ####[facility] [address] [place], [address] EPI,SQUAMOUS 0 SEEN Normal 0-5 [facility] Comment on above: Order Comment: CLEAN CATCH Performed By: #### L 501.1000, L400.0001, L501.1105 ####[facility] [address] [place], [address] Mucus Ql (Urine sed) 0 SEEN Normal [facility] Comment on above: Order Comment: CLEAN CATCH Performed By: #### L 501.1000, L400.0001, L501.1105 ####[facility] [address] [place], [address] RBC 0 SEEN Normal 0-5 [facility] Comment on above: Order Comment: CLEAN CATCH Performed By: #### L 501.1000, L400.0001, L501.1105 ####[facility] [address] [place], [address] WBC 0 SEEN Normal 0-5 [facility] Comment on above: Order Comment: CLEAN CATCH Performed By: #### L 501.1000, L400.0001, L501.1105 ####[facility] [address] [place], [address] [facility] PATH SENDOUT (SENDOUT)o n 08-28-2024 [facility] MISCELLANEOUS LAB TEST RESULT Normal [facility] Comment on above: Result Comment: FARAZ Patel COMMENTS: Results are attached to the pathology report, case # [id number]. See scan in [employer]. Performed By: #### L [id number] ####[employer]: SOLEDAD BEASLEY ([id number])[facility] ([facility] AST(SGOT)on 08-22-2024 AST [Catalytic activity/Vol] 23 U/L Normal 15-37 [facility] Comment on above: Performed By: #### L 501.6710, L501.4405, L501.1105, L101.9900, L100.0100, L501.4100 ####[facility] [address] [place], [address] Alanine Aminotransferas (SGP T)on 08-22-2024 ALT [Catalytic activity/Vol] 27 U/L Normal 16-61 [facility] Comment on above: Performed By: #### L 501.6710, L501.4405, L501.1105, L101.9900, L100.0100, L501.4100 ####[facility] [address] [place], [address] CBC W/Diff, Automatedon 10-0 9-2024 Absolute Lymph 1.01 X10 3/uL Normal 0.83-4.51 [facility] Comment on above: Performed By: #### L 501.6710, L501.4405, L501.1105, L101.9900, L100.0100, L501.4100 ####[facility] [address] [place], [address] Absolute Neut 3.8 X10 3/uL Normal 2.0-7.7 [facility] Comment on above: Performed By: #### L 501.6710, L501.4405, L501.1105, L101.9900, L100.0100, L501.4100 ####[facility] [address] [place], [address] Basophils/100 WBC (Bld) 0.8 % Normal 0-1 [facility] Comment on above: Performed By: #### L 501.6710, L501.4405, L501.1105, L101.9900, L100.0100, L501.4100 ####[facility] [address] [place], [address] Eosinophils/100 WBC (Bld) 9.5 % High 0-5 [facility] Comment on above: Performed By: #### L 501.6710, L501.4405, L501.1105, L101.9900, L100.0100, L501.4100 ####[facility] [address] [place], [address] Erythrocyte distribution width (RBC) [Ratio] 14.7 % High 11.6-14.6 [facility] Comment on above: Performed By: #### L 501.6710, L501.4405, L501.1105, L101.9900, L100.0100, L501.4100 ####[facility] [address] [place], [address] Hematocrit (Bld) [Volume fraction] 34.0 % Low 40-54 [facility] Comment on above: Performed By: #### L 501.6710, L501.4405, L501.1105, L101.9900, L100.0100, L501.4100 ####[facility] [address] [place], [address] Hemoglobin (Bld) [Mass/Vol] 11.4 g/dL Low 13.0-16.5 [facility] Comment on above: Performed By: #### L 501.6710, L501.4405, L501.1105, L101.9900, L100.0100, L501.4100 ####[facility] [address] [place], [address] IG% 0.800 Normal 0.0-0.9 [facility] Comment on above: Result Comment: IG% - Immature Granulocytes (promyelocytes, myelocytes andmetamyelocytes) > 1% indicates that a LEFT SHIFT is Present. Performed By: #### L 501.6710, L501.4405, L501.1105, L101.9900, L100.0100, L501.4100 ####[facility] [address] [place], [address] Lymphocytes/100 WBC (Bld) 16.0 % Low 19-41 [facility] Comment on above: Performed By: #### L 501.6710, L501.4405, L501.1105, L101.9900, L100.0100, L501.4100 ####[facility] [address] [place], [address] MCH (RBC) [Entitic mass] 33.5 pg High 27.0-32.0 [facility] Comment on above: Performed By: #### L 501.6710, L501.4405, L501.1105, L101.9900, L100.0100, L501.4100 ####[facility] [address] [place], [address] MCHC (RBC) [Mass/Vol] 33.5 g/dL Normal 32-36 [facility] Comment on above: Performed By: #### L 501.6710, L501.4405, L501.1105, L101.9900, L100.0100, L501.4100 ####[facility] [address] [place], [address] MCV (RBC) [Entitic vol] 100.0 fL High 80-94 [facility] Comment on above: Performed By: #### L 501.6710, L501.4405, L501.1105, L101.9900, L100.0100, L501.4100 ####[facility] [address] [place], [address] Monocytes/100 WBC (Bld) 12.8 % High 0-10 [facility] Comment on above: Performed By: #### L 501.6710, L501.4405, L501.1105, L101.9900, L100.0100, L501.4100 ####[facility] [address] [place], [address] Neutrophils/100 WBC (Bld) 60.1 % Normal 47-70 [facility] Comment on above: Performed By: #### L 501.6710, L501.4405, L501.1105, L101.9900, L100.0100, L501.4100 ####[facility] [address] [place], [address] Nucleated RBC (Bld) [#/Vol] 0 10*3/uL Normal 0-5 [facility] Comment on above: Performed By: #### L 501.6710, L501.4405, L501.1105, L101.9900, L100.0100, L501.4100 ####[facility] [address] [place], [address] Platelet mean volume (Bld) [Entitic vol] 10.5 fL Normal 6.2-12.0 [facility] Comment on above: Performed By: #### L 501.6710, L501.4405, L501.1105, L101.9900, L100.0100, L501.4100 ####[facility] [address] [place], [address] Platelets (Bld) [#/Vol] 192 10*3/uL Normal 150-450 [facility] Comment on above: Performed By: #### L 501.6710, L501.4405, L501.1105, L101.9900, L100.0100, L501.4100 ####[facility] [address] [place], [address] RBC (Bld) [#/Vol] 3.40 10*6/uL Low 4.6-6.2 [facility] Comment on above: Performed By: #### L 501.6710, L501.4405, L501.1105, L101.9900, L100.0100, L501.4100 ####[facility] [address] [place], [address] RDW SD 52.3 fl High 35.1-43.9 [facility] Comment on above: Performed By: #### L 501.6710, L501.4405, L501.1105, L101.9900, L100.0100, L501.4100 ####[facility] [address] [place], [address] WBC (Bld) [#/Vol] 6.3 10*3/uL Normal 4.4-11.0 [facility] Comment on above: Performed By: #### L 501.6710, L501.4405, L501.1105, L101.9900, L100.0100, L501.4100 ####[facility] [address] [place], [address] CRPon 08-22-2024 C-REACTIVE PROT < 2.90 Normal 0.0-3.0 [facility] Comment on above: Result Comment: C-Re active Protein (CRP) provides useful information for thediagnosis, therapy and monitoring of inflammatory processesand associated diseases. For the evaluation of Relative Riskfor Cardiovascular Disease, a High Sensitivity CRP (HSCRP)should be ordered. Performed By: #### L 501.6710, L501.4405, L501.1105, L101.9900, L100.0100, L501.4100 ####[facility] [address] [place], [address] Erythrocyte Sed Rateon 08-22 SED RATE 2 mm/hr Normal 0-20 [facility] Comment on above: Performed By: #### L 501.6710, L501.4405, L501.1105, L101.9900, L100.0100, L501.4100 ####[facility] [address] [place], [address] Serum Creatinine AND GFRon 1 Creatinine [Mass/Vol] 1.53 mg/dL High 0.70-1.30 [facility] Comment on above: Result Comment: The validity of the calculated GFR GFRAA in patients over70 years has not been determined. Clinical correlation isessential. Performed By: #### L 501.6710, L501.4405, L501.1105, L101.9900, L100.0100, L501.4100 ####[facility] [address] [place], [address] EST GFR - AA 56 mL/min Low >60 [facility] Comment on above: Result Comment: Afri can Vincentian GFR Calc Performed By: #### L 501.6710, L501.4405, L501.1105, L101.9900, L100.0100, L501.4100 ####[facility] [address] [place], [address] GFR/1.73 sq M.predicted among non-blacks MDRD (S/P/Bld) [Vol rate/Area] 47 mL/min/{1.73_m2} Low >60 [facility] Comment on above: Result Comment: Non- GFR Calc Performed By: #### L 501.6710, L501.4405, L501.1105, L101.9900, L100.0100, L501.4100 ####[facility] [address] [place], [address] PT D/C Summary (1)on 08-06- 024 PT D/C Summary (1) Normal [facility] CBC W/Diff, Automatedon 07-15 Absolute Lymph 1.01 X10 3/uL Normal 0.83-4.51 [facility] Comment on above: Performed By: #### L 100.0100 ####[facility] [address] [place], [address] Absolute Neut 2.5 X10 3/uL Normal 2.0-7.7 [facility] Comment on above: Performed By: #### L 100.0100 ####[facility] [address] [place], [address] Basophils/100 WBC (Bld) 0.9 % Normal 0-1 [facility] Comment on above: Performed By: #### L 100.0100 ####[facility] [address] [place], [address] Eosinophils/100 WBC (Bld) 10.4 % High 0-5 [facility] Comment on above: Performed By: #### L 100.0100 ####[facility] [address] [place], [address] Erythrocyte distribution width (RBC) [Ratio] 14.6 % Normal 11.6-14.6 [facility] Comment on above: Performed By: #### L 100.0100 ####[facility] [address] [place], [address] Hematocrit (Bld) [Volume fraction] 33.9 % Low 40-54 [facility] Comment on above: Performed By: #### L 100.0100 ####[facility] [address] [place], [address] Hemoglobin (Bld) [Mass/Vol] 11.4 g/dL Low 13.0-16.5 [facility] Comment on above: Performed By: #### L 100.0100 ####[facility] [address] [place], [address] IG% 0.400 Normal 0.0-0.9 [facility] Comment on above: Result Comment: IG% - Immature Granulocytes (promyelocytes, myelocytes andmetamyelocytes) > 1% indicates that a LEFT SHIFT is Present. Performed By: #### L 100.0100 ####[facility] [address] [place], [address] Lymphocytes/100 WBC (Bld) 22.2 % Normal 19-41 [facility] Comment on above: Performed By: #### L 100.0100 ####[facility] [address] [place], [address] MCH (RBC) [Entitic mass] 33.5 pg High 27.0-32.0 [facility] Comment on above: Performed By: #### L 100.0100 ####[facility] [address] [place], [address] MCHC (RBC) [Mass/Vol] 33.6 g/dL Normal 32-36 [facility] Comment on above: Performed By: #### L 100.0100 ####[facility] [address] [place], [address] MCV (RBC) [Entitic vol] 99.7 fL High 80-94 [facility] Comment on above: Performed By: #### L 100.0100 ####[facility] [address] [place], [address] Monocytes/100 WBC (Bld) 10.4 % High 0-10 [facility] Comment on above: Performed By: #### L 100.0100 ####[facility] [address] [place], [address] Neutrophils/100 WBC (Bld) 55.7 % Normal 47-70 [facility] Comment on above: Performed By: #### L 100.0100 ####[facility] [address] [place], [address] Nucleated RBC (Bld) [#/Vol] 0 10*3/uL Normal 0-5 [facility] Comment on above: Performed By: #### L 100.0100 ####[facility] [address] [place], [address] Platelet mean volume (Bld) [Entitic vol] 10.5 fL Normal 6.2-12.0 [facility] Comment on above: Performed By: #### L 100.0100 ####[facility] [address] [place], [address] Platelets (Bld) [#/Vol] 209 10*3/uL Normal 150-450 [facility] Comment on above: Performed By: #### L 100.0100 ####[facility] [address] [place], [address] RBC (Bld) [#/Vol] 3.40 10*6/uL Low 4.6-6.2 [facility] Comment on above: Performed By: #### L 100.0100 ####[facility] [address] [place], [address] RDW SD 50.9 fl High 35.1-43.9 [facility] Comment on above: Performed By: #### L 100.0100 ####[facility] [address] [place], [address] WBC (Bld) [#/Vol] 4.5 10*3/uL Normal 4.4-11.0 [facility] Comment on above: Performed By: #### L 100.0100 ####[facility] [address] [place], [address] 07-26-2024 36 Patient scheduled [facility] on 08/15/2024 at 1:15 pm. [facility] 07-23-[address] Moore: Please let [...] phone number. Pt educated and verbalized understanding. [facility] 07-20-2024 36 Called and LMOM for pt-Pt to return call. [facility] 07-19-2024 36 Patient left voicema il on nurse line requesting a call back for his recent biopsy results. He states he has other questions as well. Normal [facility] 36on 07-18-2024 36 Called and LMOM for pt-Pt to return call. Normal [facility] Re-Evaluation - PT (1)on Re-Evaluation - PT (1) Normal [facility] 36on 07-17-2024 36 Please refer the patient to a Moh's surgeon to have the lesion of his left ear treated by Moh's. Normal [facility] Tissue examOrdered By: Reagan Burch on 07-13-2024 Case Report Surgical Pathology Case: [id number] Authorizing Provider: Georgina Moore MD Collected: 07/11/2024 1328 Ordering Location: [facility] Received: 07/12/2024 1034 Dermatology Pathologist: Adan Burch MD Specimen: DERM, Skin, Left [place] [facility] Phone: Clinical Information s2pupDLrWPIveIDnQRo wNF fyilMvGEKlfGXgM7Lnwvfq SXklGV7tMO2klJdbsFFiuO BsQEMqLrRnb2ihd483yZWc k4oeHCVKUMxgALMINFn6fR qaG56aw0Y7TvkaL73ljUUf NYQ1TMZeBHBwiLHsHIYpNW C7RZZusKZoQ6nkZPXmCT3c tsidBBbmFKmyGSHmlER7QG SqmOMpU4CzVECpTVpkUYOp jme8NeAxUe3wiZDhyTcxHY xwYXJkXHBsYWluXGZzMjAg LuAELEIlslB1opRLZ3IklM FyfQ== [facility] [employer] Work Phone: Disclaimer j7ftmVPbOMFcaSWaDaFa AmXVHos0kwYSAfaNXaMuAx MzNcZnRuYmpcdWMxXGRlZm Ons3zqn723iMJsf4gjKBIf CwM6jTShPLAaJ46vVUCPU0 47VMHgTXwxo1utd6YrDEAg pGWza6B5FBRHRGagXAXNAB m1vMjvA69gs2F5CngcH2fv QXLrPSJtR1UrEI4gUDJzSy x8IRY8FYW2HRRcYOOxB8Da QS4tICXymNVpYIa5g7nahW lvJCEhJHW9u6ixDVctocHo RY3mxq1qkQc4v4urjaHuDD GpZVZgfRYQTONyD7RnuBge Oz5muTq0fPvpGvfnHUY6Aj u4AG9zox28xfm7fSjcEMAi jbgoXdX2TJpsMJZwabmmZO f5VPlnBASahRQ0ZXIxeGLo B0RjDNKxFS2wnuw5THU7PX meZQZbUmT8GURrcCZsYXGy mBrgIIrzh258MVK0GvAqVC 5tD5Kmj8J7vS9cjZOaWKBb uXZhAbYoPXZuya8umYFgPK nde3UoNMY8eaE7qEHuzPOw LVVoEO27Mpdis2YlBozkUT Y8NPActvZex4Qvm1raHkAw jsKoK9qvZ9OhRWHpYERdYA GuByOaurBrx6Qox3JsoWSc pLq5d7uoXDRwJJFpmDxhc8 jhCHC2ENScG0J0lFIvn5mi OVifWHDzlJS0yeE6GVNweT BdB1YelH4sSOBeJD3feqc8 t4icBPB6EShwASKoRrE2be O8KARluZEhWGHvfTtdNOvq v340JIR5KpGwONMxb7EiO8 MovPxoM19bjEocH58zXAVf eQgifP6biFenoQ6dErHfAf MyNFxxbFxwbGFpblxmMVxm hdY8NEbyxlbfSTPpHSbiW1 kgHxSvKTZncLlcJTymd7Hb SPFnIHSwFFKxVVyjM9hspM 2nkikbOSvuRGQrhHacx4mp ArOyyBQ4CK1kmuXyHHNxgP ahqjL1qpZotEnljU8hmY6o zSwlqB7kjEZohMP1tzsjGV luIHNpdHUgaHlicmlkaXph eQdzszjwuH2qMPO1kNSkQU I3fYNvUBVmYFGqFEPdvA17 gx3srGCgqkPoR8QiB3IpuJ IelGuuGefgbHZcaWXiSy9b sVEiHR5jXYGkqRYoI0UeUM 4gXHBhclxwYXIgVGhlIHVz QDVkKdFrqmNzu1GjjV5kZE OoMPTfAC65ciCrllO4nCBw YWJvdmUgdGVzdHMgaXMgcm VndWxhdGVkIGFzIGFuIGFu MFs9wLUkn6WnP0pngSKebp HcP9YrmLDyRTAQJW2fAVse h7CztFCsbLEgg5FmKOBtNB EdaE5pJTEpSW5qKTPmTFln PTYznyPyss4emfSaUOJmML EmR7HmrtelaVnlniEbAZOr nx7fmvRqWYN6IIUxEZLjbJ alzHBqnMPbMBGxaxD9j0Jl UNBeq5NbK4KooJPkOOOvnV UuFYP4z3EajP3zIWprvIBb PIUcMK6biITcQFGpXDVrGK FyZWQgYnkgdGhlIFVTIEZv a8EhXP3sMJEunXodOGDmfI 4qt8OfFVXju15uOWWWJSxb IFRoZSBGREEgaGFzIGRldG VybWluZWQgdGhhdCBzdWNo DJGaMSHeEZ2dKOIsrhZelU Xub8CvtTMqrlOhe6YbjfLz WWOuHTY3XdXcjLDiVZSgqg NXwVneyK2hiV4hy3QifN0b XTqcgoYsgIVqKz4rqAMzFZ 9uIHBhcmFmZmluIGVtYmVk PNCrQDDvz6B7BM7rAJBsml 4vnymfwZEvdH3ecKSnhqVk PH7mSV7vQ3O4kFYjJNCatv Btn1swKYt4uYVkRNVymBSz pIJcPviuPMV0UIAdBVD7hy PelsHwKPEqiLfjgXN2wYYx LWCqETYsPZXqND22O2Kqd7 GiW1ydTK81OZKqVEZiWJRz uoAdi3ykRCHff2gyBZBhzK XtQ2YwGRVknEKuocqhKzKd CUB9CLIuOBM3dMZdQFIzV3 OyiIZqtYYcoQ37DA9aePH5 CS1jJPX9VJfuzX4sOeHAxH 85gb2ihUN3d7EaWZ7sO2Xx KNCnp9W7pvGhEWZoTP4keP BiZWVuIHZhbGlkYXRlZCBv ikOxWLZbrGLtStwbQVS3kJ TlvGLpWpRWZGY3jAIlAYIm i7PdADToWFEjpcUtggZyBQ PoWBR4bLAaTFOdhDEvu17i F5q2FY3ekGvlVWXtkTFgOX Phz3WmyLNlbGw5oTOvCnXz OAtlMYDzHUqlzPs1yHI4YZ 6eZOEmU5UqW1theNWgFRAt NYGnqZVtfk6sqEPtxV== [facility] Work Phone: Gross Description r5euiZUrYYOmsDWjIVho NF uerdKkPAFsyUPpR1Xlhuyc LAwyBO1tXI3svRpvjAFtkN OkHGXhIzFxl5kog742rTJl n1iqDSDSMBcmWMIGXYo0vU pkI79yz7J9UlidB76bpDSl YVO7FRAuBIHygCQuXSJqOD I5RHGqdTVuY1wlVPLuTU7f raxyHIulZIehMSUacEA2FF XzmKWqN7RoITKvNOwqDWSq pdm8KnOaTp2fkMLwtOyuZG xwYXJkXHBsYWluXGZzMjAg EnWsZKb3SHJtfW7hHf8kkY ZzfZ8nqNUxEOhrWOSyQfem ZiQpn1VuXPMcb1NqxFNztA ztUFxiAZCahD8wvTqralXr GtCib4owPQXbYIEsrHDcb2 YmPOLeEN5sWHbwHBU8BIRv DUZyhC3iGOJeCQKhUDuxUV YtV4WxvF36GR0hmUMdgT0x BX7fGVMqJKBwjVBfGLPtGY 8sIRCbAEZub4tgFG8zNAJ5 cmluZyAxIGNtLiAgVGhlIG Y1G8iaqV3hBX2zexzoxjHx cyBpbmtlZCBpbiBibGFjay 7sJQZeJKYamQAkxP8jokAc ztS3mdwdTCK7HTJmFX8tZU TxbOFsiIY7ETXzQX41zLPg yHigeJ7hf19lPADdl3TndX RlLiBccGFyfQ== [facility] Work Phone: Pathology report final diagnosis Narrative e3dkfNCqQNGozNZnBIjuZF segaJmNPOdkXYpY3Lmqpny GYzsFW4lOG7fuLbclQNozA NkEXVkRkZdn0vdl163iJFg w4ffEHJHPSriUBACQNc1eK nvA78ok8U5QytlZ64wiRAn ZZG2VYUxANPmnTYyEBImUQ N5VXTenAJfM5lxGQIbZO9z fyfmTOatTRraSOUvuHJ5LF KvfEGuO3TgECHkBWtwRVVs qdu0JdKeKr3gjGGihAtiZT xwYXJkXHBsYWluXGZzMjBc cPWvYLAywR4iYEdhKvYyq7 PyVJPyr4NkiDJuyUq3QMUz nsv4RFUaIsVUp9LsngV0TU T3uzOpv48vqWzhQSphLcHo QG26dKY9EANcMpFiLLtohS Tfv0D4SQ3qcDBjX2XxwORj EEZrkL1kaYDhcPYvvG== [email or web address] Work Phone: [email or web address] Work Phone: No Panel Informationon 07-11 Type of biopsy: tangential Informed consent: discussed and consent obtained Timeout: patient name, date of , surgical site, and procedure verified Anesthesia: the lesion was anesthetized in a standard fashion Anesthetic: 1% lidocaine w/ epinephrine 1-100,000 buffered w/ 8.4% NaHCO3 Instrument used: DermaBlade Outcome: patient tolerated procedure well Post-procedure details: wound care instructions given [facility] Office Visiton 07-11-2024 Follow-up visit [id number] Yessi Hatch 1945 M Date Provider Department Center 07/11/2024 [facility]7617[facility] None No family history on file Level of Service:94845 [place] OFFICE/OUTPATIENT NEW MODERATE MDM 45 MINUTES (25) Reason for Visit and Comments: Skin Lesion [[id number]] - 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 6. The wound should improve daily. If [...] of the results in about 2 weeks. [facility] Progress Noteon 07-11-2024 Progress Note DATE OF SERVICE: 07/11/2024 PATIENT NAME: Yessi Hatch : 1945 AGE: 79 y.o. 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 male who presents for evaluation of spots on the scalp, face, neck and L ear x over 1 year. Pt states the lesions are scaly and bleed at time. Pt admits to picking at the lesion on the ear. Pt h/o numerous BCC and SCC. He was seeing a Ice Cream Mixer in [place] at [facility] but he retired a few years [...] if better. He sees Dr. Shah in [place] twice a year. History of pacemaker/ defibrillator? No History of HIV/ Hep C? No Allergies to Lidocaine, Epinephrine, Latex or Adhesive? 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 Excessive sun exposure: Yes Used tanning beds: [...] of uncertain behavior of skin Left [place] 1.5cm hemorrhagic nodule Skin Biopsy Type of [...] Moore MD 07/11/24 7:08 AM REFERRING MD: [facility] Absolute lymphocyte countOrd ered By: Coco Shah on 02-21-2024 Lymphocytes Auto (Unsp spec) [#/Vol] 1.27 10*3/uL 0.83-4.51 [facility] Automated lymphocyte count a s percentage of total leukocytesOrdered By: Coco Shah on 02-21-2024 Lymphocytes/100 WBC Auto (Unsp spec) 23.5 % 19-41 [facility] Basophil percentageOrdered B y: Coco Shah on 02-21-2024 Basophils/100 WBC (Bld) 0.9 % 0-1 [facility] Eosinophils/100 WBC (Bld) 10.4 % 0-5 [facility] Hemoglobin (Bld) [Mass/Vol] 12.7 g/dL 13.0-16.5 [facility] Monocytes/100 WBC (Bld) 14.2 % 0-10 [facility] Neutrophils (Bld) [#/Vol] 2.7 10*3/uL 2.0-7.7 [facility] Neutrophils/100 WBC (Bld) 50.4 % 47-70 [facility] WBC (Bld) [#/Vol] 5.4 10*3/uL 4.4-11.0 [facility] Determination of erythrocyte mean corpuscular volume (MCV)Ordered By: Coco Shah on 02-21-2024 MCV (RBC) [Entitic vol] 95.6 fL 80-94 [facility] Erythrocyte distribution wid th ratioOrdered By: Coco Shah on 02-21-2024 Erythrocyte distribution width (RBC) [Ratio] 14.7 % 11.6-14.6 [facility] Erythrocyte distribution wid th standard deviationOrdered By: Coco Shah on 02-21-2024 Erythrocyte distribution width (RBC) [Entitic vol] 50.7 fL 35.1-43.9 [facility] Erythrocyte sedimentation ra teOrdered By: Coco Shah on 02-21-2024 ESR (Bld) [Velocity] 3 mm/h 0-20 [facility] Hematocrit Auto (Bld) [Volum e fraction]Ordered By: Coco Shah on 02-21-2024 Hematocrit (Bld) [Volume fraction] 37.2 % 40-54 [facility] Immature granulocytes/100 WB C Auto (Bld)Ordered By: Coco Shah on 02-21-2024 Immature granulocytes/100 WBC (Bld) 0.600 % 0.0-0.9 [facility] Comment on above: IG% - Immature Granu locytes (promyelocytes, myelocytes and metamyelocytes) > 1% indicates that a LEFT SHIFT is Present. Laboratory - Chemistry and C hemistry - challengeOrdered By: Coco Shah on 02-21-2024 ALT [Catalytic activity/Vol] 33 U/L 16-61 [facility] Laboratory - Hematology and Cell countsOrdered By: Coco Shah on 02-21-2024 MCH (RBC) [Entitic mass] 32.6 pg 27.0-32.0 [facility] MCHC (RBC) [Mass/Vol] 34.1 g/dL 32-36 [facility] Nucleated RBC/100 WBC (Bld) [Ratio] 0 % 0-5 [facility] Platelet mean volume (Bld) [Entitic vol] 9.7 fL 6.2-12.0 [facility] Platelets (Bld) [#/Vol] 218 10*3/uL 150-450 [facility] No Panel InformationOrdered By: Coco Shah on 02-21-2024 C-Reactive Protein Extended Range < 2.90 mg/L 0.0-3.0 [facility] Comment on above: C-Reactive Protein ( CRP) provides useful information for thediagnosis, therapy and monitoring of inflammatory processesand associated diseases. For the evaluation of Relative Riskfor Cardiovascular Disease, a High Sensitivity CRP (HSCRP)should be ordered. Estimated GFR (MDRD) Amer 62 mL/min >60 [facility] Comment on above: GFR Calc Estimated GFR (MDRD) Non-Af Amer 51 mL/min >60 [facility] Comment on above: Non- GFR Calc RBC Auto (Bld) [#/Vol]Ordere d By: Coco Shah on 02-21-2024 RBC (Bld) [#/Vol] 3.89 10*6/uL 4.6-6.2 [facility] Serum or plasma creatinine m easurement (mass/volume)Ordered By: Coco Shah on 02-21-2024 Creatinine [Mass/Vol] 1.42 mg/dL 0.70-1.30 [facility] Comment on above: The validity of the calculated GFR & GFRAA in patients over 70 years has not been determined. Clinical correlation is essential. Thin prep Papanicolaou smear with manual screeningOrdered By: Coco Shah on 02-21-2024 Thin prep Papanicolaou smear with manual screening 27 U/L 15-37 [facility] Bacteria identified Cx Nom ( Wound)Ordered By: Patrick Rojas on 02-15-2024 Wound Culture Staphylococcus aureus [facility] Gram stain for investigation of transfusion reactionOrdered By: Patrick Rojas on 02-15-2024 Microscopic observation Gram stain Nom (Unsp spec) [facility] Absolute lymphocyte countOrd ered By: Zach Turner on 11-22-2023 Lymphocytes Auto (Unsp spec) [#/Vol] 1.29 10*3/uL 0.83-4.51 [facility] Basophil percentageOrdered B y: Zach Turner on 11-22-2023 Basophils/100 WBC (Bld) 0.5 % 0-1 [facility] Bilirubin [Mass/Vol] 1.10 mg/dL 0.20-1.00 [facility] Comment on above: For patients on eltr ombopag therapy, use of Dimension [place] TBIL is not recommended. Chloride [Moles/Vol] 106 mmol/L 98-107 [facility] Eosinophils/100 WBC (Bld) 7.5 % 0-5 [facility] Glucose [Mass/Vol] 144 mg/dL 74-106 [facility] Comment on above: Fasting Glucose resu lt greater than or equal to 126 mg/dL suggests DIABETES MELLITUS per A.D.A. criteria. Neutrophils (Bld) [#/Vol] 5.1 10*3/uL 2.0-7.7 [facility] Neutrophils/100 WBC (Bld) 66.1 % 47-70 [facility] Potassium [Moles/Vol] 3.9 mmol/L 3.5-5.1 [facility] Protein [Mass/Vol] 7.3 g/dL 6.4-8.2 [facility] Sodium [Moles/Vol] 139 mmol/L 136-145 [facility] WBC (Bld) [#/Vol] 7.7 10*3/uL 4.4-11.0 [facility] Blood erythrocytes count (nu mber/volume)Ordered By: Zach Turner on 11-22-2023 RBC (Bld) [#/Vol] 4.90 10*6/uL 4.6-6.2 [facility] Blood hemoglobin measurement (mass/volume)Ordered By: Zach Turner on 11-22-2023 Hemoglobin (Bld) [Mass/Vol] 14.9 g/dL 13.0-16.5 [facility] Blood lymphocytes/100 leukoc ytesOrdered By: Zach Turner on 11-22-2023 Lymphocytes/100 WBC (Bld) 16.7 % 19-41 [facility] Blood monocytes/100 leukocyt esOrdered By: Zach Turner on 11-22-2023 Monocytes/100 WBC (Bld) 8.4 % 0-10 [facility] Blood platelet mean volumeOr dered By: Zach Turner on 11-22-2023 Platelet mean volume (Bld) [Entitic vol] 10.4 fL 6.2-12.0 [facility] Determination of erythrocyte mean corpuscular volume (MCV)Ordered By: Zach Turner on 11-22-2023 MCV (RBC) [Entitic vol] 91.8 fL 80-94 [facility] Erythrocyte sedimentation ra teOrdered By: Zach Turner on 11-22-2023 ESR (Bld) [Velocity] 2 mm/h 0-20 [facility] Hematocrit Auto (Bld) [Volum e fraction]Ordered By: Zach Turner on 11-22-2023 Hematocrit (Bld) [Volume fraction] 45.0 % 40-54 [facility] Laboratory - Chemistry and C hemistry - challengeOrdered By: Zach Turner on 11-22-2023 ALP [Catalytic activity/Vol] 77 U/L 45-117 [facility] ALT [Catalytic activity/Vol] 54 U/L 16-61 [facility] CO2 [Moles/Vol] 29.0 mmol/L 21.0-32.0 [facility] Globulin (S) [Mass/Vol] 3.7 g/dL 2.2-4.2 [facility] Urea nitrogen/Creatinine [Mass ratio] 16.5 mg/mg 10-20 [facility] Laboratory - Hematology and Cell countsOrdered By: Zach Turner on 11-22-2023 Erythrocyte distribution width (RBC) [Entitic vol] 45.8 fL 35.1-43.9 [facility] Erythrocyte distribution width (RBC) [Ratio] 13.6 % 11.6-14.6 [facility] Immature granulocytes/100 WBC (Bld) 0.800 % 0.0-0.9 [facility] Comment on above: IG% - Immature Granu locytes (promyelocytes, myelocytes and metamyelocytes) > 1% indicates that a LEFT SHIFT is Present. MCH (RBC) [Entitic mass] 30.4 pg 27.0-32.0 [facility] Nucleated RBC/100 WBC (Bld) [Ratio] 0 % 0-5 [facility] Auto (RBC) [Mass/Vol]Or dered By: Zach Turner on 11-22-2023 MCHC (RBC) [Mass/Vol] 33.1 g/dL 32-36 [facility] No Panel InformationOrdered By: Zach Turner on 11-22-2023 Estimated GFR (MDRD) Amer 63 mL/min >60 [facility] Comment on above: GFR Calc Estimated GFR (MDRD) Non-Af Amer 52 mL/min >60 [facility] Comment on above: Non- GFR Calc Urine Microalbumin/Creatinine Ratio 235.6 mg/g CRE <30 [facility] Platelets bldOrdered By: Ksenia Turner on 11-22-2023 Platelets (Bld) [#/Vol] 189 10*3/uL 150-450 [facility] Serum or plasma C reactive p rotein measurement (mass/volume)Ordered By: Zach Turner on 11-22-2023 CRP [Mass/Vol] mg/L 0.0-3.0 [facility] Comment on above: C-Reactive Protein ( CRP) provides useful information for thediagnosis, therapy and monitoring of inflammatory processesand associated diseases. For the evaluation of Relative Riskfor Cardiovascular Disease, a High Sensitivity CRP (HSCRP)should be ordered. Serum or plasma albumin amadou urement (mass/volume)Ordered By: Zach Turner on 11-22-2023 Albumin [Mass/Vol] 3.6 g/dL 3.2-5.0 [facility] Serum or plasma albumin/glob ulin mass ratioOrdered By: Zach Turner on 11-22-2023 Albumin/Globulin [Mass ratio] 1.0 {ratio} 0.9-2.4 [facility] Serum or plasma calcium amadou urement (mass/volume)Ordered By: Zach Turner on 11-22-2023 Calcium [Mass/Vol] 9.5 mg/dL 8.5-10.1 [facility] Serum or plasma creatinine m easurement (mass/volume)Ordered By: Zach Turner on 11-22-2023 Creatinine [Mass/Vol] 1.39 mg/dL 0.70-1.30 [facility] Comment on above: The validity of the calculated GFR & GFRAA in patients over 70 years has not been determined. Clinical correlation is essential. Serum or plasma urea nitroge n measurement (mass/volume)Ordered By: Zach Turner on 11-22-2023 Urea nitrogen [Mass/Vol] 23 mg/dL 7-18 [facility] Thin prep Papanicolaou smear with manual screeningOrdered By: Zach Turner on 11-22-2023 Thin prep Papanicolaou smear with manual screening 34 U/L 15-37 [facility] Thin prep Papanicolaou smear with manual screening 4 5-15 [facility] Thin prep Papanicolaou smear with manual screening 344.0 mg/L NO RANGE EST. [facility] Urine creatinine measurement (mass/volume)Ordered By: Zach Turner on 11-22-2023 Creatinine (U) [Mass/Vol] 146.00 mg/dL NO RANGE EST. [facility] Whole blood hemoglobin A1c/t otal hemoglobin ratio (mass fraction)Ordered By: Zach Turner on 11-22-2023 HbA1c (Bld) [Mass fraction] 7.0 % 3.8-5.6 [facility] Comment on above: Normal < 5.7 % Predi abetic 5.7 - 6.4 % Diabetic >or= 6.5 % Please note range changes. Absolute lymphocyte countOrd ered By: Coco Shah on 08-22-2023 Lymphocytes Auto (Unsp spec) [#/Vol] 2.02 10*3/uL 0.83-4.51 [facility] Basophil percentageOrdered B y: Coco Shah on 08-22-2023 Basophils/100 WBC (Bld) 0.9 % 0-1 [facility] Eosinophils/100 WBC (Bld) 8.8 % 0-5 [facility] Neutrophils (Bld) [#/Vol] 4.1 10*3/uL 2.0-7.7 [facility] Neutrophils/100 WBC (Bld) 52.6 % 47-70 [facility] WBC (Bld) [#/Vol] 7.8 10*3/uL 4.4-11.0 [facility] Blood erythrocytes count (nu mber/volume)Ordered By: Coco Shah on 08-22-2023 RBC (Bld) [#/Vol] 3.87 10*6/uL 4.6-6.2 [facility] Blood hemoglobin measurement (mass/volume)Ordered By: Coco Shah on 08-22-2023 Hemoglobin (Bld) [Mass/Vol] 13.2 g/dL 13.0-16.5 [facility] Blood lymphocytes/100 leukoc ytesOrdered By: Coco Shah on 08-22-2023 Lymphocytes/100 WBC (Bld) 26.0 % 19-41 [facility] Blood monocytes/100 leukocyt esOrdered By: Coco Shah on 08-22-2023 Monocytes/100 WBC (Bld) 11.3 % 0-10 [facility] Blood platelet mean volumeOr dered By: Coco Shah on 08-22-2023 Platelet mean volume (Bld) [Entitic vol] 10.4 fL 6.2-12.0 [facility] Determination of erythrocyte mean corpuscular volume (MCV)Ordered By: Coco Shah on 08-22-2023 MCV (RBC) [Entitic vol] 98.4 fL 80-94 [facility] Erythrocyte sedimentation ra teOrdered By: Coco Shah on 08-22-2023 ESR (Bld) [Velocity] 10 mm/h 0-20 [facility] Hematocrit Auto (Bld) [Volum e fraction]Ordered By: Coco Shah on 08-22-2023 Hematocrit (Bld) [Volume fraction] 38.1 % 40-54 [facility] Laboratory - Chemistry and C hemistry - challengeOrdered By: Coco Shah on 08-22-2023 ALT [Catalytic activity/Vol] 57 U/L 16-61 [facility] - Hematology and Cell countsOrdered By: Coco Shah on 08-22-2023 Erythrocyte distribution width (RBC) [Entitic vol] 49.7 fL 35.1-43.9 [facility] Erythrocyte distribution width (RBC) [Ratio] 14.6 % 11.6-14.6 [facility] Immature granulocytes/100 WBC (Bld) 0.400 % 0.0-0.9 [facility] Comment on above: IG% - Immature Granu locytes (promyelocytes, myelocytes and metamyelocytes) > 1% indicates that a LEFT SHIFT is Present. MCH (RBC) [Entitic mass] 34.1 pg 27.0-32.0 [facility] Nucleated RBC/100 WBC (Bld) [Ratio] 0 % 0-5 [facility] ([facility]) [Mass/Vol]Or dered By: Coco Shah on 08-22-2023 MCHC (RBC) [Mass/Vol] 34.6 g/dL 32-36 [facility] No Panel InformationOrdered By: Coco Shah on 08-22-2023 Estimated GFR (MDRD) Amer 73 mL/min >60 [facility] Comment on above: GFR Calc Estimated GFR (MDRD) Non-Af Amer 60 mL/min >60 [facility] Comment on above: Non- GFR Calc Platelets bldOrdered By: Santino Shah on 08-22-2023 Platelets (Bld) [#/Vol] 303 10*3/uL 150-450 [facility] Serum or plasma C reactive p rotein measurement (mass/volume)Ordered By: Coco Shah on 08-22-2023 CRP [Mass/Vol] mg/L 0.0-3.0 [facility] Comment on above: C-Reactive Protein ( CRP) provides useful information for thediagnosis, therapy and monitoring of inflammatory processesand associated diseases. For the evaluation of Relative Riskfor Cardiovascular Disease, a High Sensitivity CRP (HSCRP)should be ordered. Serum or plasma creatinine m easurement (mass/volume)Ordered By: Coco Shah on 08-22-2023 Creatinine [Mass/Vol] 1.23 mg/dL 0.70-1.30 [facility] Comment on above: The validity of the calculated GFR & GFRAA in patients over 70 years has not been determined. Clinical correlation is essential. Thin prep Papanicolaou smear with manual screeningOrdered By: Cooc Shah on 08-22-2023 Thin prep Papanicolaou smear with manual screening 36 U/L 15-37 [facility] Bacteria identified Cx Nom ( Wound)Ordered By: Patrick Rojas on 05-10-2023 Wound Culture Staphylococcus lugdunensis [facility] Wound Culture Staphylococcus aureus [facility] Gram stain for investigation of transfusion reactionOrdered By: Patrick Rojas on 05-10-2023 Microscopic observation Gram stain Nom (Unsp spec) [facility] Basophil percentageOrdered B y: Dr. Turner on 05-04-2023 Chloride [Moles/Vol] 110 mmol/L 98-107 [facility] Glucose [Mass/Vol] 186 mg/dL 74-106 [facility] Comment on above: Fasting Glucose resu lt greater than or equal to 126 mg/dL suggests DIABETES MELLITUS per A.D.A. criteria. Potassium [Moles/Vol] 4.1 mmol/L 3.5-5.1 [facility] Sodium [Moles/Vol] 141 mmol/L 136-145 [facility] Laboratory - Chemistry and C hemistry - challengeOrdered By: Dr. Turner on 05-04-2023 CO2 [Moles/Vol] 28.0 mmol/L 21.0-32.0 [facility] Urea nitrogen/Creatinine [Mass ratio] 23.5 mg/mg 10-20 [facility] No Panel InformationOrdered By: Dr. Turner on 05-04-2023 Estimated GFR (MDRD) Amer 79 mL/min >60 [facility] Comment on above: GFR Calc Estimated GFR (MDRD) Non-Af Amer 65 mL/min >60 [facility] Comment on above: Non- GFR Calc Serum or plasma calcium amadou urement (mass/volume)Ordered By: Dr. Turner on 05-04-2023 Calcium [Mass/Vol] 9.2 mg/dL 8.5-10.1 [facility] Serum or plasma creatinine m easurement (mass/volume)Ordered By: Dr. Turner on 05-04-2023 Creatinine [Mass/Vol] 1.15 mg/dL 0.70-1.30 [facility] Comment on above: The validity of the calculated GFR & GFRAA in patients over 70 years has not been determined. Clinical correlation is essential. Serum or plasma urea nitroge n measurement (mass/volume)Ordered By: Dr. Turner on 05-04-2023 Urea nitrogen [Mass/Vol] 27 mg/dL 7-18 [facility] Thin prep Papanicolaou smear with manual screeningOrdered By: Dr. Turner on 05-04-2023 Thin prep Papanicolaou smear with manual screening 3 5-15 [facility] Absolute lymphocyte countOrd ered By: Dr. Hernández on 04-26-2023 Lymphocytes Auto (Unsp spec) [#/Vol] 1.68 10*3/uL 0.83-4.51 [facility] Basophil percentageOrdered B y: Dr. Hernández on 04-26-2023 Basophils/100 WBC (Bld) 0.9 % 0-1 [facility] Eosinophils/100 WBC (Bld) 7.0 % 0-5 [facility] Neutrophils (Bld) [#/Vol] 4.8 10*3/uL 2.0-7.7 [facility] Neutrophils/100 WBC (Bld) 60.6 % 47-70 [facility] WBC (Bld) [#/Vol] 7.9 10*3/uL 4.4-11.0 [facility] Blood erythrocytes count (nu mber/volume)Ordered By: Dr. Hernández on 04-26-2023 RBC (Bld) [#/Vol] 4.10 10*6/uL 4.6-6.2 [facility] Blood hemoglobin measurement (mass/volume)Ordered By: Dr. Hernández on 04-26-2023 Hemoglobin (Bld) [Mass/Vol] 13.4 g/dL 13.0-16.5 [facility] Blood lymphocytes/100 leukoc ytesOrdered By: Dr. Hernández on 04-26-2023 Lymphocytes/100 WBC (Bld) 21.3 % 19-41 [facility] Blood monocytes/100 leukocyt esOrdered By: Dr. Hernández on 04-26-2023 Monocytes/100 WBC (Bld) 9.8 % 0-10 [facility] Blood platelet mean volumeOr dered By: Dr. Hernández on 04-26-2023 Platelet mean volume (Bld) [Entitic vol] 10.3 fL 6.2-12.0 [facility] Determination of erythrocyte mean corpuscular volume (MCV)Ordered By: Dr. Hernández on 04-26-2023 MCV (RBC) [Entitic vol] 98.8 fL 80-94 [facility] Erythrocyte sedimentation ra teOrdered By: Dr. Hernández on 04-26-2023 ESR (Bld) [Velocity] 10 mm/h 0-20 [facility] Hematocrit Auto (Bld) [Volum e fraction]Ordered By: Dr. Hernández on 04-26-2023 Hematocrit (Bld) [Volume fraction] 40.5 % 40-54 [facility] Laboratory - Chemistry and C hemistry - challengeOrdered By: Dr. Hernández on 04-26-2023 ALT [Catalytic activity/Vol] 38 U/L 16-61 [facility] - Hematology and Cell countsOrdered By: Dr. Hernández on 04-26-2023 Erythrocyte distribution width (RBC) [Entitic vol] 47.6 fL 35.1-43.9 [facility] Erythrocyte distribution width (RBC) [Ratio] 13.4 % 11.6-14.6 [facility] Immature granulocytes/100 WBC (Bld) 0.400 % 0.0-0.9 [facility] Comment on above: IG% - Immature Granu locytes (promyelocytes, myelocytes and metamyelocytes) > 1% indicates that a LEFT SHIFT is Present. MCH (RBC) [Entitic mass] 32.7 pg 27.0-32.0 [facility] Nucleated RBC/100 WBC (Bld) [Ratio] 0 % 0-5 [facility] MCHC Auto (RBC) [Mass/Vol]Or dered By: Dr. Hernández on 04-26-2023 MCHC (RBC) [Mass/Vol] 33.1 g/dL 32-36 [facility] No Panel InformationOrdered By: Dr. Hernández on 04-26-2023 Estimated GFR (MDRD) Amer 56 mL/min >60 [facility] Comment on above: GFR Calc Estimated GFR (MDRD) Non-Af Amer 46 mL/min >60 [facility] Comment on above: Non- GFR Calc Prostate Specific Antigen Total 1.28 ng/mL 0.0-4.0 [facility] Comment on above: This test was perfor med using the TPSA assay method for the[facility]. Values obtained with differentassay methods cannot be used interchangably.When changing PSA assays in the course of monitoring apatient, additional sequential testing should be carriedout to confirm baseline values. Platelets bldOrdered By: Dr. Hernández on 04-26-2023 Platelets (Bld) [#/Vol] 317 10*3/uL 150-450 [facility] Serum or plasma C reactive p rotein measurement (mass/volume)Ordered By: Dr. Hernández on 04-26-2023 CRP [Mass/Vol] mg/L 0.0-3.0 [facility] Comment on above: C-Reactive Protein ( CRP) provides useful information for thediagnosis, therapy and monitoring of inflammatory processesand associated diseases. For the evaluation of Relative Riskfor Cardiovascular Disease, a High Sensitivity CRP (HSCRP)should be ordered. Serum or plasma creatinine m easurement (mass/volume)Ordered By: Dr. Hernández on 04-26-2023 Creatinine [Mass/Vol] 1.55 mg/dL 0.70-1.30 [facility] Comment on above: The validity of the calculated GFR & GFRAA in patients over 70 years has not been determined. Clinical correlation is essential. Thin prep Papanicolaou smear with manual screeningOrdered By: Dr. Hernández on 04-26-2023 Thin prep Papanicolaou smear with manual screening 24 U/L 15-37 [facility] Bacteria identified Cx Nom ( Wound)Ordered By: Dr. Rojas on 03-31-2023 Wound Culture Pseudomonas putida [facility] Gram stain for investigation of transfusion reactionOrdered By: Dr. Rojas on 03-30-2023 Microscopic observation Gram stain Nom (Unsp spec) [facility] Bacteria identified Cx Nom ( Wound)Ordered By: Patrick Rojas on 03-29-2023 Wound Culture Pseudomonas putida [facility] Gram stain for investigation of transfusion reactionOrdered By: Patrick Rojas on 03-29-2023 Microscopic observation Gram stain Nom (Unsp spec) [facility] OPERATIVE PROCEDURESon 03-28 OPERATIVE PROCEDURES [facility] OPERATIVE REPORT NAME ACCOUNT SEX AGE ADMIT DISCHARGE PT MED. RECORD# NUMBER DATE DATE TYPE HOLDEN, [id number] M [id number] 03/04/23 2 YESSI [id number] ROOM: [facility] DATE OF : 1945 DICTATING PHYSICIAN: Patrick Rojas DATE OF SURGERY: March 04, 2023 SURGEON: Patrick Rojas DPM CONTRACT PROCESSOR: None. ANESTHESIOLOGIST: Braxton Ashby CRNA ANESTHETIC: MAC [...] Patrick Rojas DPM 03/04/23 09:04 JOB #: [id number] Transcribed By: am Page 2 of 3 YESSI HATCH Operative Report YESSI HATCH : 1945 03/04/23 10:09 Electronically signed by: E-SIGN ALEXANDREA (more content not included)... Normal [facility] Final Surgical Pathology Rep sadiq 03-09-2023 Final Surgical Pathology Report . Pathology Reports Accession: Collected Date/Time: Received Date/Time: Pathologist: [id number] 03/04/2023 12:00 EDT 03/07/2023 10:00 PIETER POWER MD Final Surgical Pathology Report DIAGNOSIS: A. LEFT FIRST TOE, AMPUTATION SPECIMEN: - SKIN AND SOFT TISSUE OF RESECTION MARGINS VIABLE. B. LEFT SECOND TOE, AMPUTATION SPECIMEN: - CUTANEOUS ULCERATION IDENTIFIED. SKIN AND SOFT TISSUE RESECTION MARGIN APPEAR VIABLE COMMENT: [facility] - [id number] CLINICAL INFORMATION: NON-PRESSURE CHRONIC ULCER OF OTHER [...] Electronically Signed by Pathology Report verified by [facility] PIETER MAGANA Sign out Date: 03/09/2023 10:52 Performing Lab: [facility], [address] [place] [address] States Pathology Dept Normal [facility] (OR) BUNon 03-03-2023 Urea nitrogen [Mass/Vol] 32 mg/dL High 7 - 18 [facility] Comment on above: Performed By: #### [id number] #### [facility],[address] [place] [address] CHEST 2 VIEWSon 03-03-2023 CHEST 2 VIEWS [place] [address] Patient: YESSI HATCH Phone#: : 1945 Age: 77 Gender: M Pt. Type: Out Account: [id number] Location: Ordering: PATRICK ROJAS Exam Date: 03/03/2023/14:45 Family Phys: ZACH BhaktaKeerthi JOHNNY Charge Code: 871531 Physician: [place] Order #: [id number] Dose#: PROCEDURE: X-RAY CHEST 2 VIEWS COMPARISON: [...] Ramirez MD on 03/03/2023 at 15:25 Normal [facility] GLUCOSEon 03-03-2023 Glucose [Mass/Vol] 167 mg/dL High 74 - 106 [facility] Comment on above: Performed By: #### 2 [id number] #### [facility],[address] [place], [place] [id number] HEMATOCRITon 03-03-2023 Hematocrit (Bld) [Volume fraction] 40.4 % Normal 40.0 - 52.0 [facility] Comment on above: Performed By: #### 2 [id number] #### [facility],[address] [place], [place] [id number] HEMOGLOBINon 03-03-2023 Hemoglobin (Bld) [Mass/Vol] 13.7 g/dL Normal 13.0 - 17.5 [facility] Comment on above: Performed By: #### 2 [id number] #### [place] [address] [facility] [address] Absolute lymphocyte countOrd ered By: Dr. Hendricks on 02-26-2023 Lymphocytes Auto (Unsp spec) [#/Vol] 1.78 10*3/uL 0.83-4.51 [facility] Basophil percentageOrdered B y: Dr. Hendricks on 02-26-2023 Basophils/100 WBC (Bld) 0.3 % 0-1 [facility] Chloride [Moles/Vol] 103 mmol/L 98-107 [facility] Eosinophils/100 WBC (Bld) 3.1 % 0-5 [facility] Glucose [Mass/Vol] 156 mg/dL 74-106 [facility] Comment on above: Fasting Glucose resu lt greater than or equal to 126 mg/dL suggests DIABETES MELLITUS per A.D.A. criteria. Neutrophils (Bld) [#/Vol] 6.2 10*3/uL 2.0-7.7 [facility] Neutrophils/100 WBC (Bld) 69.1 % 47-70 [facility] Potassium [Moles/Vol] 4.2 mmol/L 3.5-5.1 [facility] Sodium [Moles/Vol] 135 mmol/L 136-145 [facility] WBC (Bld) [#/Vol] 9.0 10*3/uL 4.4-11.0 [facility] Blood erythrocytes count (nu mber/volume)Ordered By: Dr. Hendricks on 02-26-2023 RBC (Bld) [#/Vol] 4.49 10*6/uL 4.6-6.2 [facility] Blood hemoglobin measurement (mass/volume)Ordered By: Dr. Hendricks on 02-26-2023 Hemoglobin (Bld) [Mass/Vol] 14.4 g/dL 13.0-16.5 [facility] Blood lymphocytes/100 leukoc ytesOrdered By: Dr. Hendricks on 02-26-2023 Lymphocytes/100 WBC (Bld) 19.7 % 19-41 [facility] Blood monocytes/100 leukocyt esOrdered By: Dr. Hendricks on 02-26-2023 Monocytes/100 WBC (Bld) 7.2 % 0-10 [facility] Blood platelet mean volumeOr dered By: Dr. Hendricks on 02-26-2023 Platelet mean volume (Bld) [Entitic vol] 10.6 fL 6.2-12.0 [facility] Determination of erythrocyte mean corpuscular volume (MCV)Ordered By: Dr. Hendricks on 02-26-2023 MCV (RBC) [Entitic vol] 97.6 fL 80-94 [facility] Hematocrit Auto (Bld) [Volum e fraction]Ordered By: Dr. Hendricks on 02-26-2023 Hematocrit (Bld) [Volume fraction] 43.8 % 40-54 [facility] Laboratory - Chemistry and C hemistry - challengeOrdered By: Dr. Hendricks on 02-26-2023 CO2 [Moles/Vol] 30.0 mmol/L 21.0-32.0 [facility] Urea nitrogen/Creatinine [Mass ratio] 18.0 mg/mg 10-20 [facility] Laboratory - Hematology and Cell countsOrdered By: Dr. Hendricks on 02-26-2023 Erythrocyte distribution width (RBC) [Entitic vol] 50.3 fL 35.1-43.9 [facility] Erythrocyte distribution width (RBC) [Ratio] 14.2 % 11.6-14.6 [facility] Immature granulocytes/100 WBC (Bld) 0.600 % 0.0-0.9 [facility] Comment on above: IG% - Immature Granu locytes (promyelocytes, myelocytes and metamyelocytes) > 1% indicates that a LEFT SHIFT is Present. MCH (RBC) [Entitic mass] 32.1 pg 27.0-32.0 [facility] Nucleated RBC/100 WBC (Bld) [Ratio] 0 % 0-5 [facility] MCHC Auto (RBC) [Mass/Vol]Or dered By: Dr. Hendricks on 02-26-2023 MCHC (RBC) [Mass/Vol] 32.9 g/dL 32-36 [facility] No Panel InformationOrdered By: Dr. Hendricks on 02-26-2023 Estimated Creatinine Clearance Calc 51.36 ml/min [facility] Estimated GFR (MDRD) Amer 70 mL/min >60 [facility] Comment on above: GFR Calc Estimated GFR (MDRD) Non-Af Amer 58 mL/min >60 [facility] Comment on above: Non- GFR Calc Platelets bldOrdered By: Dr. Hendricks on 02-26-2023 Platelets (Bld) [#/Vol] 222 10*3/uL 150-450 [facility] Serum or plasma calcium amadou urement (mass/volume)Ordered By: Dr. Hendricks on 02-26-2023 Calcium [Mass/Vol] 9.8 mg/dL 8.5-10.1 [facility] Serum or plasma creatinine m easurement (mass/volume)Ordered By: Dr. Hendricks on 02-26-2023 Creatinine [Mass/Vol] 1.28 mg/dL 0.70-1.30 [facility] Comment on above: The validity of the calculated GFR & GFRAA in patients over 70 years has not been determined. Clinical correlation is essential. Serum or plasma urea nitroge n measurement (mass/volume)Ordered By: Dr. Hendricks on 02-26-2023 Urea nitrogen [Mass/Vol] 23 mg/dL 7-18 [facility] Thin prep Papanicolaou smear with manual screeningOrdered By: Dr. Hendricks on 02-26-2023 Thin prep Papanicolaou smear with manual screening 2 - [facility] Whole blood hemoglobin A1c/t otal hemoglobin ratio (mass fraction)Ordered By: Dr. Hendricks on 02-26-2023 HbA1c (Bld) [Mass fraction] 7.5 % 3.8-5.6 [facility] Comment on above: Normal < 5.7 % Predi abetic 5.7 - 6.4 % Diabetic >or= 6.5 % Please note range changes. Absolute lymphocyte countOrd ered By: Dr. White on 02-25-2023 Lymphocytes Auto (Unsp spec) [#/Vol] 1.54 10*3/uL 0.83-4.51 [facility] Basophil percentageOrdered B y: Dr. White on 02-25-2023 Basophils/100 WBC (Bld) 0.2 % 0-1 [facility] Chloride [Moles/Vol] 102 mmol/L 98-107 [facility] Eosinophils/100 WBC (Bld) 2.2 % 0-5 [facility] Glucose [Mass/Vol] 155 mg/dL 74-106 [facility] Comment on above: Fasting Glucose resu lt greater than or equal to 126 mg/dL suggests DIABETES MELLITUS per A.D.A. criteria. Neutrophils (Bld) [#/Vol] 10.5 10*3/uL 2.0-7.7 [facility] Neutrophils/100 WBC (Bld) 76.7 % 47-70 [facility] Potassium [Moles/Vol] 4.0 mmol/L 3.5-5.1 [facility] Sodium [Moles/Vol] 136 mmol/L 136-145 [facility] WBC (Bld) [#/Vol] 13.7 10*3/uL 4.4-11.0 [facility] Blood erythrocytes count (nu mber/volume)Ordered By: Dr. White on 02-25-2023 RBC (Bld) [#/Vol] 4.45 10*6/uL 4.6-6.2 [facility] Blood hemoglobin measurement (mass/volume)Ordered By: Dr. White on 02-25-2023 Hemoglobin (Bld) [Mass/Vol] 14.1 g/dL 13.0-16.5 [facility] Blood lymphocytes/100 leukoc ytesOrdered By: Dr. White on 02-25-2023 Lymphocytes/100 WBC (Bld) 11.3 % 19-41 [facility] Blood monocytes/100 leukocyt esOrdered By: Dr. White on 02-25-2023 Monocytes/100 WBC (Bld) 8.9 % 0-10 [facility] Blood platelet mean volumeOr dered By: Dr. White on 02-25-2023 Platelet mean volume (Bld) [Entitic vol] 10.6 fL 6.2-12.0 [facility] Determination of erythrocyte mean corpuscular volume (MCV)Ordered By: Dr. White on 02-25-2023 MCV (RBC) [Entitic vol] 96.4 fL 80-94 [facility] Erythrocyte sedimentation ra teOrdered By: Dr. White on 02-25-2023 ESR (Bld) [Velocity] 6 mm/h 0-20 [facility] Glucose Glucometer (BldC) [M ass/Vol]Ordered By: Dr. Hendricks on 02-25-2023 Glucose [Mass/Vol] 171 mg/dL 74-106 [facility] Comment on above: MANAGEMENT OF PATIEN T CARE PER NURSING PROTOCOL Hematocrit Auto (Bld) [Volum e fraction]Ordered By: Dr. White on 02-25-2023 Hematocrit (Bld) [Volume fraction] 42.9 % 40-54 [facility] Laboratory - Chemistry and C hemistry - challengeOrdered By: Dr. White on 02-25-2023 CO2 [Moles/Vol] 31.0 mmol/L 21.0-32.0 [facility] Urea nitrogen/Creatinine [Mass ratio] 20.6 mg/mg 10-20 [facility] - Hematology and Cell countsOrdered By: Dr. White on 02-25-2023 Erythrocyte distribution width (RBC) [Entitic vol] 49.5 fL 35.1-43.9 [facility] Erythrocyte distribution width (RBC) [Ratio] 14.1 % 11.6-14.6 [facility] Immature granulocytes/100 WBC (Bld) 0.700 % 0.0-0.9 [facility] Comment on above: IG% - Immature Granu locytes (promyelocytes, myelocytes and metamyelocytes) > 1% indicates that a LEFT SHIFT is Present. MCH (RBC) [Entitic mass] 31.7 pg 27.0-32.0 [facility] Nucleated RBC/100 WBC (Bld) [Ratio] 0 % 0-5 [facility] MCHC Auto (RBC) [Mass/Vol]Or dered By: Dr. White on 02-25-2023 MCHC (RBC) [Mass/Vol] 32.9 g/dL 32-36 [facility] No Panel InformationOrdered By: Dr. White on 02-25-2023 Estimated Creatinine Clearance Calc 50.19 ml/min [facility] Estimated GFR (MDRD) Amer 68 mL/min >60 [facility] Comment on above: GFR Calc Estimated GFR (MDRD) Non-Af Amer 56 mL/min >60 [facility] Comment on above: Non- GFR Calc Platelets bldOrdered By: Dr. White on 02-25-2023 Platelets (Bld) [#/Vol] 229 10*3/uL 150-450 [facility] Serum or plasma C reactive p rotein measurement (mass/volume)Ordered By: Dr. White on 02-25-2023 CRP [Mass/Vol] 50.30 mg/L 0.0-3.0 [facility] Comment on above: C-Reactive Protein ( CRP) provides useful information for thediagnosis, therapy and monitoring of inflammatory processesand associated diseases. For the evaluation of Relative Riskfor Cardiovascular Disease, a High Sensitivity CRP (HSCRP)should be ordered. Serum or plasma calcium amadou urement (mass/volume)Ordered By: Dr. White on 02-25-2023 Calcium [Mass/Vol] 10.0 mg/dL 8.5-10.1 [facility] Serum or plasma creatinine m easurement (mass/volume)Ordered By: Dr. White on 02-25-2023 Creatinine [Mass/Vol] 1.31 mg/dL 0.70-1.30 [facility] Comment on above: The validity of the calculated GFR & GFRAA in patients over 70 years has not been determined. Clinical correlation is essential. Serum or plasma urea nitroge n measurement (mass/volume)Ordered By: Dr. White on 02-25-2023 Urea nitrogen [Mass/Vol] 27 mg/dL 7-18 [facility] Thin prep Papanicolaou smear with manual screeningOrdered By: Dr. White on 02-25-2023 Thin prep Papanicolaou smear with manual screening 3 5-15 [facility] Bacteria identified Cx Nom ( Wound)Ordered By: Dr. Rojas on 02-24-2023 Wound Culture Enterococcus faecalis [facility] Gram stain for investigation of transfusion reactionOrdered By: Dr. Rojas on 02-24-2023 Microscopic observation Gram stain Nom (Unsp spec) [facility] Bacteria identified Cx Nom ( Wound)Ordered By: Patrick Rojas on 02-22-2023 Wound Culture Enterococcus faecalis [facility] Gram stain for investigation of transfusion reactionOrdered By: Patrick Rojas on 02-22-2023 Microscopic observation Gram stain Nom (Unsp spec) [facility] Absolute lymphocyte countOrd ered By: Dr. Wilson on 01-12-2023 Lymphocytes Auto (Unsp spec) [#/Vol] 1.86 10*3/uL 0.83-4.51 [facility] Basophil percentageOrdered B y: Dr. Wilson on 11-25-2022 Basophils/100 WBC (Bld) 0.4 % 0-1 [facility] Eosinophils/100 WBC (Bld) 6.5 % 0-5 [facility] Neutrophils (Bld) [#/Vol] 3.7 10*3/uL 2.0-7.7 [facility] Neutrophils/100 WBC (Bld) 53.1 % 47-70 [facility] WBC (Bld) [#/Vol] 7.0 10*3/uL 4.4-11.0 [facility] Blood erythrocytes count (nu mber/volume)Ordered By: Dr. Wilson on 11-25-2022 RBC (Bld) [#/Vol] 4.38 10*6/uL 4.6-6.2 [facility] Blood hemoglobin measurement (mass/volume)Ordered By: Dr. Wilson on 11-25-2022 Hemoglobin (Bld) [Mass/Vol] 14.0 g/dL 13.0-16.5 [facility] Blood lymphocytes/100 leukoc ytesOrdered By: Dr. Wilson on 11-25-2022 Lymphocytes/100 WBC (Bld) 26.5 % 19-41 [facility] Blood monocytes/100 leukocyt esOrdered By: Dr. Wilson on 11-25-2022 Monocytes/100 WBC (Bld) 13.1 % 0-10 [facility] Blood platelet mean volumeOr dered By: Dr. Wilson on 11-25-2022 Platelet mean volume (Bld) [Entitic vol] 10.2 fL 6.2-12.0 [facility] Determination of erythrocyte mean corpuscular volume (MCV)Ordered By: Dr. Wilson on 11-25-2022 MCV (RBC) [Entitic vol] 94.5 fL 80-94 [facility] Erythrocyte sedimentation ra teOrdered By: Dr. Wilson on 11-25-2022 ESR (Bld) [Velocity] 9 mm/h 0-20 [facility] Hematocrit Auto (Bld) [Volum e fraction]Ordered By: Dr. Wilson on 11-25-2022 Hematocrit (Bld) [Volume fraction] 41.4 % 40-54 [facility] Laboratory - Chemistry and C hemistry - challengeOrdered By: Dr. Wilson on 11-25-2022 ALT [Catalytic activity/Vol] 59 U/L 16-61 [facility] - Hematology and Cell countsOrdered By: Dr. Wilson on 11-25-2022 Erythrocyte distribution width (RBC) [Entitic vol] 45.5 fL 35.1-43.9 [facility] Erythrocyte distribution width (RBC) [Ratio] 13.2 % 11.6-14.6 [facility] Immature granulocytes/100 WBC (Bld) 0.400 % 0.0-0.9 [facility] Comment on above: IG% - Immature Granu locytes (promyelocytes, myelocytes and metamyelocytes) > 1% indicates that a LEFT SHIFT is Present. MCH (RBC) [Entitic mass] 32.0 pg 27.0-32.0 [facility] Nucleated RBC/100 WBC (Bld) [Ratio] 0 % 0-5 [facility] MCHC Auto (RBC) [Mass/Vol]Or dered By: Dr. Wilson on 11-25-2022 MCHC (RBC) [Mass/Vol] 33.8 g/dL 32-36 [facility] No Panel InformationOrdered By: Dr. Wilson on 11-25-2022 Estimated GFR (MDRD) Amer 68 mL/min >60 [facility] Comment on above: GFR Calc Estimated GFR (MDRD) Non-Af Amer 56 mL/min >60 [facility] Comment on above: Non- GFR Calc Platelets bldOrdered By: Dr. Wilson on 11-25-2022 Platelets (Bld) [#/Vol] 257 10*3/uL 150-450 [facility] Serum or plasma C reactive p rotein measurement (mass/volume)Ordered By: Dr. Wilson on 11-25-2022 CRP [Mass/Vol] mg/L 0.0-3.0 [facility] Comment on above: C-Reactive Protein ( CRP) provides useful information for thediagnosis, therapy and monitoring of inflammatory processesand associated diseases. For the evaluation of Relative Riskfor Cardiovascular Disease, a High Sensitivity CRP (HSCRP)should be ordered. Serum or plasma creatinine m easurement (mass/volume)Ordered By: Dr. Wilson on 11-25-2022 Creatinine [Mass/Vol] 1.31 mg/dL 0.70-1.30 [facility] Comment on above: The validity of the calculated GFR & GFRAA in patients over 70 years has not been determined. Clinical correlation is essential. Thin prep Papanicolaou smear with manual screeningOrdered By: Dr. Wilson on 11-25-2022 Thin prep Papanicolaou smear with manual screening 33 U/L 15- [facility] Anaerobic cultureOrdered By: Tanesha Alva on 10-31-2022 Bacteria identified Anaer cx Nom (Unsp spec) No anaerobic bacteria isolated. [facility] Bacteria identified Cx Nom ( Wound)Ordered By: Tanesha Alva on 10-29-2022 Wound Culture Staphylococcus lugdunensis [facility] Gram stain for investigation of transfusion reactionOrdered By: Tanesha Alva on 10-28-2022 Microscopic observation Gram stain Nom (Unsp spec) [facility] Bacteria identified Anaer cx Nom (Unsp spec)Ordered By: Tanesha Alva on 09-25-2022 Anaerobic Culture Anaerobic cocci [facility] Bacteria identified Cx Nom ( Wound)Ordered By: Tanesha Alva on 09-25-[address]aphylococcus aureus [facility] Gram stain for investigation of transfusion reactionOrdered By: Tanesha Alva on 09-23-2022 Microscopic observation Gram stain Nom (Unsp spec) [facility] Absolute lymphocyte countOrd ered By: Dr. Wilson on 08-23-2022 Lymphocytes Auto (Unsp spec) [#/Vol] 1.68 10*3/uL 0.83-4.51 [facility] Basophil percentageOrdered B y: Dr. Wilson on 08-23-2022 Basophils/100 WBC (Bld) 0.5 % 0-1 [facility] Eosinophils/100 WBC (Bld) 7.2 % 0-5 [facility] Neutrophils (Bld) [#/Vol] 4.3 10*3/uL 2.0-7.7 [facility] Neutrophils/100 WBC (Bld) 58.2 % 47-70 [facility] WBC (Bld) [#/Vol] 7.5 10*3/uL 4.4-11.0 [facility] Blood erythrocytes count (nu mber/volume)Ordered By: Dr. Wilson on 08-23-2022 RBC (Bld) [#/Vol] 4.08 10*6/uL 4.6-6.2 [facility] Blood hemoglobin measurement (mass/volume)Ordered By: Dr. Wilson on 08-23-2022 Hemoglobin (Bld) [Mass/Vol] 13.7 g/dL 13.0-16.5 [facility] Blood lymphocytes/100 leukoc ytesOrdered By: Dr. Wilson on 08-23-2022 Lymphocytes/100 WBC (Bld) 22.5 % 19-41 [facility] Blood monocytes/100 leukocyt esOrdered By: Dr. Wilson on 08-23-2022 Monocytes/100 WBC (Bld) 11.1 % 0-10 [facility] Blood platelet mean volumeOr dered By: Dr. Wilson on 08-23-2022 Platelet mean volume (Bld) [Entitic vol] 10.9 fL 6.2-12.0 [facility] Determination of erythrocyte mean corpuscular volume (MCV)Ordered By: Dr. Wilson on 08-23-2022 MCV (RBC) [Entitic vol] 98.5 fL 80-94 [facility] Erythrocyte sedimentation ra teOrdered By: Dr. Wilson on 08-23-2022 ESR (Bld) [Velocity] 5 mm/h 0-20 [facility] Hematocrit Auto (Bld) [Volum e fraction]Ordered By: Dr. Wilson on 08-23-2022 Hematocrit (Bld) [Volume fraction] 40.2 % 40-54 [facility] - Chemistry and C hemistry - challengeOrdered By: Dr. Wilson on 08-23-2022 ALT [Catalytic activity/Vol] 47 U/L 16-61 [facility] - Hematology and Cell countsOrdered By: Dr. Wilson on 08-23-2022 Erythrocyte distribution width (RBC) [Entitic vol] 48.3 fL 35.1-43.9 [facility] Erythrocyte distribution width (RBC) [Ratio] 13.6 % 11.6-14.6 [facility] Immature granulocytes/100 WBC (Bld) 0.500 % 0.0-0.9 [facility] Comment on above: IG% - Immature Granu locytes (promyelocytes, myelocytes and metamyelocytes) > 1% indicates that a LEFT SHIFT is Present. MCH (RBC) [Entitic mass] 33.6 pg 27.0-32.0 [facility] Nucleated RBC/100 WBC (Bld) [Ratio] 0 % 0-5 [facility] MCHC Auto (RBC) [Mass/Vol]Or dered By: Dr. Wilson on 08-23-2022 MCHC (RBC) [Mass/Vol] 34.1 g/dL 32-36 [facility] No Panel InformationOrdered By: Dr. Wilson on 08-23-2022 Estimated GFR (MDRD) Amer 69 mL/min >60 [facility] Comment on above: GFR Calc Estimated GFR (MDRD) Non-Af Amer 57 mL/min >60 [facility] Comment on above: Non- GFR Calc Platelets bldOrdered By: Dr. Wilson on 08-23-2022 Platelets (Bld) [#/Vol] 264 10*3/uL 150-450 [facility] Serum or plasma C reactive p rotein measurement (mass/volume)Ordered By: Dr. Wilson on 08-23-2022 CRP [Mass/Vol] mg/L 0.0-3.0 [facility] Comment on above: C-Reactive Protein ( CRP) provides useful information for thediagnosis, therapy and monitoring of inflammatory processesand associated diseases. For the evaluation of Relative Riskfor Cardiovascular Disease, a High Sensitivity CRP (HSCRP)should be ordered. Serum or plasma creatinine m easurement (mass/volume)Ordered By: Dr. Wilson on 08-23-2022 Creatinine [Mass/Vol] 1.29 mg/dL 0.70-1.30 [facility] Comment on above: The validity of the calculated GFR & GFRAA in patients over 70 years has not been determined. Clinical correlation is essential. Serum or plasma uric acid me asurement (mass/volume)Ordered By: Dr. Wilson on 08-23-2022 Urate [Mass/Vol] 5.9 mg/dL 3.5-7.2 [facility] Comment on above: The drugs N-Acetylcy steine and Metamizole may falsely depress this assay. Thin prep Papanicolaou smear with manual screeningOrdered By: Dr. Wilson on 08-23-2022 Thin prep Papanicolaou smear with manual screening 28 U/L 15-37 [facility] Absolute lymphocyte counton 06-21-2022 Lymphocytes Auto (Unsp spec) [#/Vol] 1.75 10*3/uL 0.83-4.51 [facility] Work Phone: Basophil percentageon 2021 Basophils/100 WBC (Bld) 0.4 % 0-1 [facility] Work Phone: Eosinophils/100 WBC (Bld) 8.3 % 0-5 [facility] Work Phone: Neutrophils (Bld) [#/Vol] 2.9 10*3/uL 2.0-7.7 [facility] Work Phone: Neutrophils/100 WBC (Bld) 51.2 % 47-70 [facility] Work Phone: WBC (Bld) [#/Vol] 5.7 10*3/uL 4.4-11.0 [facility] Work Phone: Blood erythrocytes count (nu mber/volume)on 06-21-2022 RBC (Bld) [#/Vol] 3.96 10*6/uL 4.6-6.2 [facility] Work Phone: Blood hemoglobin measurement (mass/volume)on 06-21-2022 Hemoglobin (Bld) [Mass/Vol] 12.9 g/dL 13.0-16.5 [facility] Work Phone: Blood lymphocytes/100 leukoc yteson 06-21-2022 Lymphocytes/100 WBC (Bld) 30.9 % 19-41 [facility] Work Phone: Blood monocytes/100 leukocyt eson 06-21-2022 Monocytes/100 WBC (Bld) 9.0 % 0-10 [facility] Work Phone: Blood platelet mean volumeon 06-21-2022 Platelet mean volume (Bld) [Entitic vol] 10.0 fL 6.2-12.0 [facility] Work Phone: [phone] Determination of erythrocyte mean corpuscular volume (MCV)on 06-21-2022 MCV (RBC) [Entitic vol] 96.2 fL 80-94 [facility] Work Phone: [phone] Erythrocyte sedimentation ra judie 06-21-2022 ESR (Bld) [Velocity] 8 mm[facility]h [facility]: [phone] Hematocrit Auto (Bld) [Volum e fraction]on 06-21-2022 Hematocrit (Bld) [Volume fraction] 38.1 % 40-54 [facility] Work Phone: [phone] Laboratory - Chemistry and C hemistry - challengeon 06-21-2022 ALT [Catalytic activity/Vol] 56 U/L 16-61 [facility] Work Phone: [phone] Laboratory - Hematology and Cell countson 06-21-2022 Erythrocyte distribution width (RBC) [Entitic vol] 48.8 fL 35.1-43.9 [facility] Work Phone: [phone] Erythrocyte distribution width (RBC) [Ratio] 14.0 % 11.6-14.6 [facility] Work Phone: [phone] Immature granulocytes/100 WBC (Bld) 0.200 % 0.0-0.9 [facility] Work Phone: [phone] Comment on above: IG% - Immature Granu locytes (promyelocytes, myelocytes and metamyelocytes) > 1% indicates that a LEFT SHIFT is Present. MCH (RBC) [Entitic mass] 32.6 pg 27.0-32.0 [facility] Work Phone: [phone] Nucleated RBC/100 WBC (Bld) [Ratio] 0 % 0-5 [facility] Work Phone: [phone] MCHC Auto (RBC) [Mass/Vol]on 06-21-2022 MCHC (RBC) [Mass/Vol] 33.9 g/dL 32-36 [facility] Work Phone: No Panel Informationon 06-21 Estimated GFR (MDRD) Amer 61 mL/min >60 [facility] Work Phone: Comment on above: GFR Calc Estimated GFR (MDRD) Non-Af Amer 51 mL/min >60 [facility] Work Phone: Comment on above: Non- GFR Calc Platelets bldon 06-21-2022 Platelets (Bld) [#/Vol] 220 10*3/uL 150-450 [facility] Work Phone: Serum or plasma C reactive p rotein measurement (mass/volume)on 06-21-2022 CRP [Mass/Vol] mg/L 0.0-3.0 [facility] Work Phone: Comment on above: C-Reactive Protein ( CRP) provides useful information for thediagnosis, therapy and monitoring of inflammatory processesand associated diseases. For the evaluation of Relative Riskfor Cardiovascular Disease, a High Sensitivity CRP (HSCRP)should be ordered. Serum or plasma creatinine m easurement (mass/volume)on 06-21-2022 Creatinine [Mass/Vol] 1.43 mg/dL 0.70-1.30 [facility] Work Phone: Comment on above: The validity of the calculated GFR & GFRAA in patients over 70 years has not been determined. Clinical correlation is essential. Serum or plasma uric acid me asurement (mass/volume)on 06-21-2022 Urate [Mass/Vol] 6.3 mg/dL 3.5-7.2 [facility] Work Phone: Comment on above: The drugs N-Acetylcy steine and Metamizole may falsely depress this assay. Thin prep Papanicolaou smear with manual screeningon 06-21-2022 Thin prep Papanicolaou smear with manual screening 27 U/L 15-37 [facility] Work Phone: Absolute lymphocyte counton 04-21-2022 Lymphocytes Auto (Unsp spec) [#/Vol] 1.19 10*3/uL 0.83-4.51 [facility] Work Phone: Basophil percentageon 2021 Basophils/100 WBC (Bld) 0.6 % 0-1 [facility] Work Phone: Eosinophils/100 WBC (Bld) 4.4 % 0-5 [facility] Work Phone: Neutrophils (Bld) [#/Vol] 5.6 10*3/uL 2.0-7.7 [facility] Work Phone: Neutrophils/100 WBC (Bld) 70.4 % 47-70 [facility] Work Phone: WBC (Bld) [#/Vol] 8.0 10*3/uL 4.4-11.0 [facility] Work Phone: Blood erythrocytes count (nu mber/volume)on 04-21-2022 RBC (Bld) [#/Vol] 4.15 10*6/uL 4.6-6.2 [facility] Work Phone: Blood hemoglobin measurement (mass/volume)on 04-21-2022 Hemoglobin (Bld) [Mass/Vol] 13.8 g/dL 13.0-16.5 [facility] Work Phone: Blood lymphocytes/100 leukoc yteson 04-21-2022 Lymphocytes/100 WBC (Bld) 14.9 % 19-41 [facility] Work Phone: Blood monocytes/100 leukocyt eson 04-21-2022 Monocytes/100 WBC (Bld) 8.9 % 0-10 [facility] Work Phone: Blood platelet mean volumeon 04-21-2022 Platelet mean volume (Bld) [Entitic vol] 10.5 fL 6.2-12.0 [facility] Work Phone: Determination of erythrocyte mean corpuscular volume (MCV)on 04-21-2022 MCV (RBC) [Entitic vol] 97.1 fL 80-94 [facility] Work Phone: Erythrocyte sedimentation ra judie 04-21-2022 ESR (Bld) [Velocity] 13 mm/h 0-20 [facility] Work Phone: [phone] Hematocrit Auto (Bld) [Volum e fraction]on 04-21-2022 Hematocrit (Bld) [Volume fraction] 40.3 % 40-54 [facility] Work Phone: [phone] Laboratory - Chemistry and C hemistry - challengeon 04-21-2022 ALT [Catalytic activity/Vol] 43 U/L 16-61 [facility] Work Phone: [phone] Laboratory - Hematology and Cell countson 04-21-2022 Erythrocyte distribution width (RBC) [Entitic vol] 46.5 fL 35.1-43.9 [facility] Work Phone: [phone] Erythrocyte distribution width (RBC) [Ratio] 13.2 % 11.6-14.6 [facility] Work Phone: [phone] Immature granulocytes/100 WBC (Bld) 0.800 % 0.0-0.9 [facility] Work Phone: [phone] Comment on above: IG% - Immature Granu locytes (promyelocytes, myelocytes and metamyelocytes) > 1% indicates that a LEFT SHIFT is Present. MCH (RBC) [Entitic mass] 33.3 pg 27.0-32.0 [facility] Work Phone: [phone] Nucleated RBC/100 WBC (Bld) [Ratio] 0 % 0-5 [facility] Work Phone: [phone] MCHC Auto (RBC) [Mass/Vol]on 04-21-2022 MCHC (RBC) [Mass/Vol] 34.2 g/dL 32-36 [facility] Work Phone: No Panel Informationon 04-21 Estimated GFR (MDRD) Amer 74 mL/min >60 [facility] Work Phone: Comment on above: GFR Calc Estimated GFR (MDRD) Non-Af Amer 61 mL/min >60 [facility] Work Phone: [phone] Comment on above: Non- GFR Calc Platelets bldon 04-21-2022 Platelets (Bld) [#/Vol] 255 10*3/uL 150-450 [facility] Work Phone: Serum or plasma C reactive p rotein measurement (mass/volume)on 04-21-2022 CRP [Mass/Vol] 5.46 mg/L 0.0-3.0 [facility] Work Phone: Comment on above: C-Reactive Protein ( CRP) provides useful information for thediagnosis, therapy and monitoring of inflammatory processesand associated diseases. For the evaluation of Relative Riskfor Cardiovascular Disease, a High Sensitivity CRP (HSCRP)should be ordered. Serum or plasma creatinine m easurement (mass/volume)on 04-21-2022 Creatinine [Mass/Vol] 1.22 mg/dL 0.70-1.30 [facility] Work Phone: Comment on above: The validity of the calculated GFR & GFRAA in patients over 70 years has not been determined. Clinical correlation is essential. Thin prep Papanicolaou smear with manual screeningon 04-21-2022 Thin prep Papanicolaou smear with manual screening 23 U/L 15-37 [facility] Work Phone: Absolute lymphocyte counton 02-22-2022 Lymphocytes Auto (Unsp spec) [#/Vol] 1.91 10*3/uL 0.83-4.51 [facility] Work Phone: Basophil percentageon 2021 Basophils/100 WBC (Bld) 0.4 % 0-1 [facility] Work Phone: Bilirubin [Mass/Vol] 0.40 mg/dL 0.20-1.00 [facility] Work Phone: Comment on above: For patients on eltr ombopag therapy, use of Dimension [place] TBIL is not recommended. Chloride [Moles/Vol] 106 mmol/L 98-107 [facility] Work Phone: Eosinophils/100 WBC (Bld) 5.2 % 0-5 [facility] Work Phone: Glucose [Mass/Vol] 127 mg/dL 74-106 [facility] Work Phone: Comment on above: Fasting Glucose resu lt greater than or equal to 126 mg/dL suggests DIABETES MELLITUS per A.D.A. criteria. Neutrophils (Bld) [#/Vol] 4.6 10*3/uL 2.0-7.7 [facility] Work Phone: Neutrophils/100 WBC (Bld) 59.3 % 47-70 [facility] Work Phone: Potassium [Moles/Vol] 4.2 mmol/L 3.5-5.1 [facility] Work Phone: Protein [Mass/Vol] 7.2 g/dL 6.4-8.2 [facility] Work Phone: Sodium [Moles/Vol] 138 mmol/L 136-145 [facility] Work Phone: WBC (Bld) [#/Vol] 7.8 10*3/uL 4.4-11.0 [facility] Work Phone: Blood erythrocytes count (nu mber/volume)on 02-22-2022 RBC (Bld) [#/Vol] 4.50 10*6/uL 4.6-6.2 [facility] Work Phone: Blood hemoglobin measurement (mass/volume)on 02-22-2022 Hemoglobin (Bld) [Mass/Vol] 14.6 g/dL 13.0-16.5 [facility] Work Phone: Blood lymphocytes/100 leukoc yteson 02-22-2022 Lymphocytes/100 WBC (Bld) 24.4 % 19-41 [facility] Work Phone: Blood monocytes/100 leukocyt eson 02-22-2022 Monocytes/100 WBC (Bld) 10.1 % 0-10 [facility] Work Phone: Blood platelet mean volumeon 02-22-2022 Platelet mean volume (Bld) [Entitic vol] 10.1 fL 6.2-12.0 [facility] Work Phone: [phone] Determination of erythrocyte mean corpuscular volume (MCV)on 02-22-2022 MCV (RBC) [Entitic vol] 94.4 fL 80-94 [facility] Work Phone: [phone] Erythrocyte sedimentation ra judie 02-22-2022 ESR (Bld) [Velocity] 12 mm/h 0-[facility] Work [facility]: [phone] Hematocrit Auto (Bld) [Volum e fraction]on 02-22-2022 Hematocrit (Bld) [Volume fraction] 42.5 % 40-54 [facility] Work Phone: [phone] Laboratory - Chemistry and C hemistry - challengeon 02-22-2022 ALP [Catalytic activity/Vol] 89 U/L 45-117 [facility] Work Phone: [phone] ALT [Catalytic activity/Vol] 58 U/L 16-61 [facility] Work Phone: [phone] CO2 [Moles/Vol] 30.0 mmol/L 21.0-32.0 [facility] Work Phone: [phone] Globulin (S) [Mass/Vol] 3.8 g/dL 2.2-4.2 [facility] Work Phone: [phone] Urea nitrogen/Creatinine [Mass ratio] 18.9 mg/mg 10-20 [facility] Work Phone: [phone] Laboratory - Hematology and Cell countson 02-22-2022 Erythrocyte distribution width (RBC) [Entitic vol] 46.1 fL 35.1-43.9 [facility] Work Phone: [phone] Erythrocyte distribution width (RBC) [Ratio] 13.4 % 11.6-14.6 [facility] Work Phone: [phone] Immature granulocytes/100 WBC (Bld) 0.600 % 0.0-0.9 [facility] Work Phone: [phone] Comment on above: IG% - Immature Granu locytes (promyelocytes, myelocytes and metamyelocytes) > 1% indicates that a LEFT SHIFT is Present. MCH (RBC) [Entitic mass] 32.4 pg 27.0-32.0 [facility] Work Phone: Nucleated RBC/100 WBC (Bld) [Ratio] 0 % 0-5 [facility] Work Phone: [phone] MCHC Auto (RBC) [Mass/Vol]on 02-22-2022 MCHC (RBC) [Mass/Vol] 34.4 g/dL 32-36 [facility] Work Phone: No Panel Informationon 02-22 Estimated Creatinine Clearance Calc 54.77 ml/min [facility] Work Phone: [phone] Estimated GFR (MDRD) Amer 74 mL/min >60 [facility] Work Phone: [phone] Comment on above: GFR Calc Estimated GFR (MDRD) Non-Af Amer 61 mL/min >60 [facility] Work Phone: [phone] Comment on above: Non- GFR Calc Platelets bldon 02-22-2022 Platelets (Bld) [#/Vol] 277 10*3/uL 150-450 [facility] Work Phone: Serum or plasma C reactive p rotein measurement (mass/volume)on 02-22-2022 CRP [Mass/Vol] 11.30 mg/L 0.0-3.0 [facility] Work Phone: Comment on above: C-Reactive Protein ( CRP) provides useful information for thediagnosis, therapy and monitoring of inflammatory processesand associated diseases. For the evaluation of Relative Riskfor Cardiovascular Disease, a High Sensitivity CRP (HSCRP)should be ordered. Serum or plasma albumin amadou urement (mass/volume)on 02-22-2022 Albumin [Mass/Vol] 3.4 g/dL 3.2-5.0 [facility] Work Phone: [phone] Serum or plasma albumin/glob ulin mass ratioon 02-22-2022 Albumin/Globulin [Mass ratio] 0.9 {ratio} 0.9-2.4 [facility] Work Phone: [phone] Serum or plasma calcium amadou urement (mass/volume)on 02-22-2022 Calcium [Mass/Vol] 9.4 mg/dL 8.5-10.1 [facility] Work Phone: Serum or plasma creatinine m easurement (mass/volume)on 02-22-2022 Creatinine [Mass/Vol] 1.22 mg/dL 0.70-1.30 [facility] Work Phone: Comment on above: The validity of the calculated GFR & GFRAA in patients over 70 years has not been determined. Clinical correlation is essential. Serum or plasma urea nitroge n measurement (mass/volume)on 02-22-2022 Urea nitrogen [Mass/Vol] 23 mg/dL 7-18 [facility] Work Phone: Thin prep Papanicolaou smear with manual screeningon 02-22-2022 Thin prep Papanicolaou smear with manual screening 32 U/L 15-37 [facility] Work Phone: Thin prep Papanicolaou smear with manual screening 2 5-15 [facility] Work Phone: Absolute lymphocyte counton 02-05-2022 Lymphocytes Auto (Unsp spec) [#/Vol] 1.31 10*3/uL 0.83-4.51 [facility] Work Phone: Basophil percentageon 2021 Basophils/100 WBC (Bld) 0.8 % 0-1 [facility] Work Phone: [phone] Bilirubin [Mass/Vol] 0.60 mg/dL 0.20-1.00 [facility] Work Phone: [phone] Comment on above: For patients on eltr ombopag therapy, use of Dimension [place] TBIL is not recommended. Chloride [Moles/Vol] 106 mmol/L 98-107 [facility] Work Phone: Cholesterol [Mass/Vol] 144 mg/dL <200 [facility] Work Phone: [phone] Comment on above: <200 mg/dL Desirable 200-240 mg/dL Borderline >240 mg/dL High Risk Eosinophils/100 WBC (Bld) 6.9 % 0-5 [facility] Work Phone: Glucose [Mass/Vol] 166 mg/dL 74-106 [facility] Work Phone: Comment on above: Fasting Glucose resu lt greater than or equal to 126 mg/dL suggests DIABETES MELLITUS per A.D.A. criteria. Neutrophils (Bld) [#/Vol] 3.5 10*3/uL 2.0-7.7 [facility] Work Phone: Neutrophils/100 WBC (Bld) 57.2 % 47-70 [facility] Work Phone: [phone] Potassium [Moles/Vol] 4.4 mmol/L 3.5-5.1 [facility] Work Phone: [phone] Protein [Mass/Vol] 7.5 g/dL 6.4-8.2 [facility] Work Phone: Sodium [Moles/Vol] 139 mmol/L 136-145 [facility] Work Phone: [phone] Triglyceride [Mass/Vol] 76 mg/dL <199 [facility] Work Phone: Comment on above: The drugs N-Acetylcy steine and Metamizole may falsely depress this assay.Serum Triglycerides Reference Interval Normal <150 mg/dL Borderline high 150 - 199 mg/dL High 200 - 499 mg/dL Very High > or = 500 mg/dL WBC (Bld) [#/Vol] 6.1 10*3/uL 4.4-11.0 [facility] Work Phone: [phone] Blood erythrocytes count (nu mber/volume)on 02-05-2022 RBC (Bld) [#/Vol] 4.51 10*6/uL 4.6-6.2 [facility] Work Phone: [phone] Blood hemoglobin measurement (mass/volume)on 02-05-2022 Hemoglobin (Bld) [Mass/Vol] 14.3 g/dL 13.0-16.5 [facility] Work Phone: [phone] Blood lymphocytes/100 leukoc yteson 02-05-2022 Lymphocytes/100 WBC (Bld) 21.5 % 19-41 [facility] Work Phone: Blood monocytes/100 leukocyt eson 02-05-2022 Monocytes/100 WBC (Bld) 13.3 % 0-10 [facility] Work Phone: Blood platelet mean volumeon 02-05-2022 Platelet mean volume (Bld) [Entitic vol] 10.3 fL 6.2-12.0 [facility] Work Phone: Determination of erythrocyte mean corpuscular volume (MCV)on 02-05-2022 MCV (RBC) [Entitic vol] 94.9 fL 80-94 [facility] Work Phone: Direct bilirubinon Bilirubin.direct [Mass/Vol] 0.20 mg/dL 0.00-0.30 [facility] Work Phone: Erythrocyte sedimentation ra judie 02-05-2022 ESR (Bld) [Velocity] 21 mm/h 0-[facility] Work Phone: Hematocrit Auto (Bld) [Volum e fraction]on 02-05-2022 Hematocrit (Bld) [Volume fraction] 42.8 % 40-54 [facility] Work Phone: Laboratory - Chemistry and C hemistry - challengeon 02-05-2022 ALP [Catalytic activity/Vol] 77 U/L 45-117 [facility] Work Phone: ALT [Catalytic activity/Vol] 56 U/L 16-61 [facility] Work Phone: [phone] CO2 [Moles/Vol] 28.0 mmol/L 21.0-32.0 [facility] Work Phone: Globulin (S) [Mass/Vol] 3.9 g/dL 2.2-4.2 [facility] Work Phone: [phone] Urea nitrogen/Creatinine [Mass ratio] 17.4 mg/mg 10-20 [facility] Work Phone: Laboratory - Hematology and Cell countson 02-05-2022 Erythrocyte distribution width (RBC) [Entitic vol] 48.2 fL 35.1-43.9 [facility] Work Phone: [phone] Erythrocyte distribution width (RBC) [Ratio] 13.9 % 11.6-14.6 [facility] Work Phone: [phone] Immature granulocytes/100 WBC (Bld) 0.300 % 0.0-0.9 [facility] Work Phone: Comment on above: IG% - Immature Granu locytes (promyelocytes, myelocytes and metamyelocytes) > 1% indicates that a LEFT SHIFT is Present. MCH (RBC) [Entitic mass] 31.7 pg 27.0-32.0 [facility] Work Phone: Nucleated RBC/100 WBC (Bld) [Ratio] 0 % 0-5 [facility] Work Phone: MCHC Auto (RBC) [Mass/Vol]on 02-05-2022 MCHC (RBC) [Mass/Vol] 33.4 g/dL 32-36 [facility] Work Phone: [phone] Panel Informationon 02-05 Estimated GFR (MDRD) Amer 67 mL/min >60 [facility] Work Phone: Comment on above: GFR Calc Estimated GFR (MDRD) Non-Af Amer 56 mL/min >60 [facility] Work Phone: Comment on above: Non- GFR Calc Prostate Specific Antigen Total 0.86 ng/mL 0.0-4.0 [facility] Work Phone: Comment on above: This test was perfor med using the TPSA assay method for the[employer] chemistry system. Values obtained with differentassay methods cannot be used interchangably.When changing PSA assays in the course of monitoring apatient, additional sequential testing should be carriedout to confirm baseline values. Urine Microalbumin/Creatinine Ratio 123.7 mg/g CRE <30 [facility] Work Phone: Platelets bldon 02-05-2022 Platelets (Bld) [#/Vol] 208 10*3/uL 150-450 [facility] Work Phone: Serum or plasma C reactive p rotein measurement (mass/volume)on 02-05-2022 CRP [Mass/Vol] 4.99 mg/L 0.0-3.0 [facility] Work Phone: Comment on above: C-Reactive Protein ( CRP) provides useful information for thediagnosis, therapy and monitoring of inflammatory processesand associated diseases. For the evaluation of Relative Riskfor Cardiovascular Disease, a High Sensitivity CRP (HSCRP)should be ordered. Serum or plasma albumin amadou urement (mass/volume)on 02-05-2022 Albumin [Mass/Vol] 3.6 g/dL 3.2-5.0 [facility] Work Phone: Serum or plasma albumin/glob ulin mass ratioon 02-05-2022 Albumin/Globulin [Mass ratio] 0.9 {ratio} 0.9-2.4 [facility] Work Phone: Serum or plasma calcium amadou urement (mass/volume)on 02-05-2022 Calcium [Mass/Vol] 9.7 mg/dL 8.5-10.1 [facility] Work Phone: Serum or plasma cholesterol in HDL measurement (mass/volume)on 02-05-2022 Cholesterol in HDL [Mass/Vol] 47 mg/dL >40 [facility] Work Phone: Comment on above: The drugs N-Acetylcy steine and Metamizole may falsely depress this assay. Reference Range HDL <40 mg/dL Low HDL Cholesterol HDL >or= 60 mg/dL High HDL Cholesterol Serum or plasma cholesterol in VLDL measurement (mass/volume)on 02-05-2022 Cholesterol in VLDL [Mass/Vol] 15 mg/dL 5-40 [facility] Work Phone: Serum or plasma creatinine m easurement (mass/volume)on 02-05-2022 Creatinine [Mass/Vol] 1.32 mg/dL 0.70-1.30 [facility] Work Phone: Comment on above: The validity of the calculated GFR & GFRAA in patients over 70 years has not been determined. Clinical correlation is essential. Serum or plasma low density lipoprotein (LDL) cholesterol measurement (mass/volume)on 02-05-2022 Cholesterol in LDL [Mass/Vol] 82 mg/dL 0-130 [facility] Work Phone: Serum or plasma urea nitroge n measurement (mass/volume)on 02-05-2022 Urea nitrogen [Mass/Vol] 23 mg/dL 7-18 [facility] Work Phone: Thin prep Papanicolaou smear with manual screeningon 02-05-2022 Thin prep Papanicolaou smear with manual screening 27 U/L 15-37 [facility] Work Phone: [phone] Thin prep Papanicolaou smear with manual screening 5 5-15 [facility] Work Phone: [phone] Thin prep Papanicolaou smear with manual screening 277.0 mg/L NO RANGE EST. [facility] Work Phone: Urine creatinine measurement (mass/volume)on 02-05-2022 Creatinine (U) [Mass/Vol] 224.00 mg/dL NO RANGE EST. [facility] Work Phone: Whole blood hemoglobin A1c/t otal hemoglobin ratio (mass fraction)on 02-05-2022 HbA1c (Bld) [Mass fraction] 6.9 % 3.8-5.6 [facility] Work Phone: Comment on above: Normal < 5.7 % Predi abetic 5.7 - 6.4 % Diabetic >or= 6.5 % Please note range changes. Absolute lymphocyte counton 12-04-2021 Lymphocytes Auto (Unsp spec) [#/Vol] 1.62 10*3/uL 0.83-4.51 [facility] Work Phone: Basophil percentageon 2021 Basophils/100 WBC (Bld) 0.5 % 0-1 [facility] Work Phone: [phone] Eosinophils/100 WBC (Bld) 7.7 % 0-5 [facility] Work Phone: [phone] Neutrophils (Bld) [#/Vol] 3.5 10*3/uL 2.0-7.7 [facility] Work Phone: Neutrophils/100 WBC (Bld) 55.6 % 47-70 [facility] Work Phone: WBC (Bld) [#/Vol] 6.2 10*3/uL 4.4-11.0 [facility] Work Phone: Blood erythrocytes count (nu mber/volume)on 12-04-2021 RBC (Bld) [#/Vol] 4.48 10*6/uL 4.6-6.2 [facility] Work Phone: Blood hemoglobin measurement (mass/volume)on 12-04-2021 Hemoglobin (Bld) [Mass/Vol] 14.1 g/dL 13.0-16.5 [facility] Work Phone: Blood lymphocytes/100 leukoc yteson 12-04-2021 Lymphocytes/100 WBC (Bld) 26.1 % 19-41 [facility] Work Phone: Blood monocytes/100 leukocyt eson 12-04-2021 Monocytes/100 WBC (Bld) 9.8 % 0-10 [facility] Work Phone: Blood platelet mean volumeon 12-04-2021 Platelet mean volume (Bld) [Entitic vol] 10.5 fL 6.2-12.0 [facility] Work Phone: Determination of erythrocyte mean corpuscular volume (MCV)on 12-04-2021 MCV (RBC) [Entitic vol] 94.2 fL 80-94 [facility] Work Phone: Erythrocyte sedimentation ra judie 12-04-2021 ESR (Bld) [Velocity] 5 mm/h 0-20 [facility] Work Phone: Hematocrit Auto (Bld) [Volum e fraction]on 12-04-2021 Hematocrit (Bld) [Volume fraction] 42.2 % 40-54 [facility] Work Phone: Laboratory - Chemistry and C hemistry - challengeon 12-04-2021 ALT [Catalytic activity/Vol] 46 U/L 16-61 [facility] Work Phone: [phone] Laboratory - Hematology and Cell countson 12-04-2021 Erythrocyte distribution width (RBC) [Entitic vol] 47.0 fL 35.1-43.9 [facility] Work Phone: [phone] Erythrocyte distribution width (RBC) [Ratio] 13.7 % 11.6-14.6 [facility] Work Phone: [phone] Immature granulocytes/100 WBC (Bld) 0.300 % 0.0-0.9 [facility] Work Phone: [phone] Comment on above: IG% - Immature Granu locytes (promyelocytes, myelocytes and metamyelocytes) > 1% indicates that a LEFT SHIFT is Present. MCH (RBC) [Entitic mass] 31.5 pg 27.0-32.0 [facility] Work Phone: [phone] Nucleated RBC/100 WBC (Bld) [Ratio] 0 % 0-5 [facility] Work Phone: [phone] MCHC Auto (RBC) [Mass/Vol]on 12-04-2021 MCHC (RBC) [Mass/Vol] 33.4 g/dL 32-36 [facility] Work Phone: [phone] Panel Informationon 12-04 Estimated GFR (MDRD) Amer 77 mL/min >60 [facility] Work Phone: [phone] Comment on above: GFR Calc Estimated GFR (MDRD) Non-Af Amer 64 mL/min >60 [facility] Work Phone: [phone] Comment on above: Non- GFR Calc Platelets bldon 12-04-2021 Platelets (Bld) [#/Vol] 264 10*3/uL 150-450 [facility] Work Phone: [phone] Serum or plasma C reactive p rotein measurement (mass/volume)on 12-04-2021 CRP [Mass/Vol] mg/L 0.0-3.0 [facility] Work Phone: [phone] Comment on above: C-Reactive Protein ( CRP) provides useful information for thediagnosis, therapy and monitoring of inflammatory processesand associated diseases. For the evaluation of Relative Riskfor Cardiovascular Disease, a High Sensitivity CRP (HSCRP)should be ordered. Serum or plasma creatinine m easurement (mass/volume)on 12-04-2021 Creatinine [Mass/Vol] 1.17 mg/dL 0.70-1.30 [facility] Work Phone: Comment on above: The validity of the calculated GFR & GFRAA in patients over 70 years has not been determined. Clinical correlation is essential. Thin prep Papanicolaou smear with manual screeningon 12-04-2021 Thin prep Papanicolaou smear with manual screening 30 U/L 15-37 [facility] Work Phone: Krysten 10-08-2019 ALT [Catalytic activity/Vol] 40 U/L Proxeon Sandi 10-08-2019 AST [Catalytic activity/Vol] 31 U/L Proxeon C REACTIVE PROTEINon 019 CRP [Mass/Vol] mg/L 0 - 10 MG/L [employer] [facility] CBC, EDIF, PLATE[employer]Ton 2018 ABSOLUTE BASOPHIL COUNT 0.0 10*3/uL 0 - 0.2 10*3/uL Proxeon Basophils/100 WBC (Bld) 0.6 % 0 - 2 % A [employer] Differential cell count method Nom (Bld) AUTO DIFF % Proxeon Eosinophils (Bld) [#/Vol] 1.30 10*3/uL High 0 - 0.7 10*3/uL [facility] Eosinophils/100 WBC (Bld) 16.9 % High 0 - 11 % [facility] Erythrocyte distribution width (RBC) [Ratio] 14.6 % High 11.5 - 14.5 % Proxeon Hematocrit (Bld) [Volume fraction] 41.3 % Low 42 - 52 % [facility] Hemoglobin (Bld) [Mass/Vol] 13.8 g/dL Low [facility] Interpretation and review of laboratory results Abnormal [facility] Lymphocytes (Bld) [#/Vol] 1.80 10*3/uL 1.2 - 3.4 10*3/uL [facility] Lymphocytes/100 WBC (Bld) 24.3 % 20 - 55 % [facility] MCH (RBC) [Entitic mass] 31.2 pg 26 - 35 PG [facility] MCHC (RBC) [Mass/Vol] 33.5 g/dL [employer] MCV (RBC) [Entitic vol] 93.4 fL [facility] [employer] Monocytes (Bld) [#/Vol] 0.7 10*3/uL 0 - 0.7 10*3/uL [employer] [employer] Monocytes/100 WBC (Bld) 8.9 % 0 - 10 % [employer] [facility] Neutrophils (Bld) [#/Vol] 3.7 10*3/uL 1.4 - 6.5 10*3/uL [employer] Neutrophils/100 WBC (Bld) 49.3 % 37 - 75 % [facility] [employer] Platelet mean volume (Bld) [Entitic vol] 9.8 fL [employer] Platelets (Bld) [#/Vol] 215 10*3/uL 130 - 400 10*3/uL [facility] RBC (Bld) [#/Vol] 4.42 10*6/uL 4 - 6.1 10*6/uL [employer] [employer] WBC (Bld) [#/Vol] 7.5 10*3/uL 3.6 - 11 10*3/uL [facility] CREATININE SERUMon 9 Creatinine [Mass/Vol] 0.98 mg/dL [facility] GFR/1.73 sq M predicted among blacks MDRD (S/P/Bld) [Vol rate/Area] mL/min/{1.73_m2} ml/min/1.73 sq.m [facility] GFR/1.73 sq M predicted among non-blacks MDRD (S/P/Bld) [Vol rate/Area] Average GFR for 70+ years old = 75. [facility] Comment on above: Chronic Kidney disea se, GFR = <60. Kidney failure, GFR = <15. The GFR estimate is not adjusted for extreme body surface area or acute process, nor has it been validated for women or ethnic groups other than and . GFR/1.73 sq M predicted among non-blacks MDRD (S/P/Bld) [Vol rate/Area] mL/min/{1.73_m2} ml/min/1.73 sq.m Pro[facility] SEDIMENTATION RATE, AUTOMATE Don 10-08-2019 ESR (Bld) [Velocity] 4 mm/h [facility] Office Visit: [facility] 10-03-20 17 Dietary management education, guidance, and counseling (procedure) yes Invalid Interpretation Code [facility] Work Phone: [phone] Documentation of current medications (procedure) Done Invalid Interpretation Code [facility] Work Phone: [phone] Fall risk assessment No Invalid Interpretation Code [email or web address] Work Phone: [phone] [facility] Note on 05-20-2017 [facility] Note Normal [facility] Office Visit: O[facility] 05-09-20 17 Tobacco smoking status NHIS Never Invalid Interpretation Code [facility] Work Phone: [phone] Tobacco use [facility] Former smoker Invalid Interpretation Code [facility] Work Phone: [phone] Lab Report: Comprehensive Pa tabolic Profilon 01-03-2017 Alanine aminotransferase (ALT) 46 U/L Invalid Interpretation Code 12-78 [email or web address] Work Phone: [phone] Albumin 3.8 g/dL Invalid Interpretation Code 3.4-5.0 [facility] Work Phone: [phone] Albumin/Globulin Ratio 1.3 {ratio} Invalid Interpretation Code 0.9-2.4 [facility] Work Phone: [phone] Alkaline phosphatase (ALP) 48 U/L Invalid Interpretation Code 45-117 [facility] Work Phone: [phone] Anion gap 9 mmol/L Invalid Interpretation Code 5-15 [facility] Work Phone: [phone] Aspartate aminotransferase (AST) 25 U/L Invalid Interpretation Code 15-37 [facility] Work Phone: [phone] Bilirubin (total) 0.50 mg/dL Invalid Interpretation Code 0.20-1.00 [facility] Work Phone: [phone] BUN/Creatinine Ratio 21.8 RATIO High 10-[address] [facility] Work Phone: [phone] Calcium 9.2 mg/dL Invalid Interpretation Code 8.5-10.1 [facility] Work Phone: [phone] Chloride 104 mmol/L Invalid Interpretation Code 98-107 [facility] Work Phone: [phone] CO2 28.0 mmol/L Invalid Interpretation Code 21.0-32.0 [facility] Work Phone: [phone] Creatinine 1.10 mg/dL Invalid Interpretation Code 0.70-1.30 [facility] Work Phone: [phone] eGFR (non-black) 84 mL/min/{1.73_m2} Invalid Interpretation Code >60 [facility] Work Phone: [phone] eGFR (non-black) 70 mL/min/{1.73_m2} Invalid Interpretation Code >60 [facility] Work Phone: [phone] Globulin 3.0 g/dL Invalid Interpretation Code 2.3-3.5 [facility] Work Phone: [phone] Glucose mass conc 131 mg/dL High 70-110 [facility] Work Phone: [phone] Potassium molar conc 3.9 mmol/L Invalid Interpretation Code 3.5-5.1 [facility] Work Phone: [phone] Protein 6.8 g/dL Invalid Interpretation Code 6.4-8.2 [facility] Work Phone: [phone] Sodium 141 mmol/L Invalid Interpretation Code 136-145 [facility] Work Phone: [phone] Urea nitrogen 24 mg/dL High 7-18 [facility] Work Phone: [phone] Lab Report: Hemoglobin A1con 01-03-2017 Hemoglobin A1c/Hemoglobin.total mass fraction (Bld) 6.1 % Invalid Interpretation Code 4.2-6.3 [facility] Work Phone: [phone] Lab Report: Microalb:Creat R atio,Random URon 01-03-2017 ACR (microalbumin/creatinin e) ratio 27.4 MG/G CRE Invalid Interpretation Code <30 mg/g CRE [facility] Work Phone: [phone] Urine, creatinine 156.00 mg/dL Invalid Interpretation Code NO RANGE EST. [facility] Work Phone: [phone] Urine, microalbumin 4.28 mg/dL Invalid Interpretation Code Units converted. See lab report for original value. [facility] Work Phone: [phone] Clinical Lists Update: [employer] 12-2016 Left ventricular Ejection fraction 55 % Invalid Interpretation Code [facility] Work Phone: [phone] Lab Report: MRSA Wound DNA b y PCRon 04-06-2016 INR Coag RelTime (Bld) Negative Invalid Interpretation Code Negative [facility] Work Phone: [phone] SA RESULT Positive High Negative [facility] Work Phone: [phone] Clinical Lists Update: [facility] 04-05-2016 Albumin/Globulin Ratio 1.0 {ratio} Invalid Interpretation Code [facility] Work Phone: [phone] Cholesterol 164 mg/dL Invalid Interpretation Code [facility] Work Phone: [phone] eGFR (non-black) 61 mL/min/{1.73_m2} Invalid Interpretation Code [facility] Work Phone: [phone] eGFR (non-black) 74 mL/min/{1.73_m2} Invalid Interpretation Code [facility] Work Phone: [phone] Erythrocyte distribution width Auto Ratio (RBC) 13.0 % Invalid Interpretation Code [facility] Work Phone: [phone] Erythrocytes (RBC) 4.71 10*6/uL Invalid Interpretation Code [facility] Work Phone: [phone] Globulin 3.5 g/dL Invalid Interpretation Code [facility] Work Phone: [phone] HDL Cholesterol 43 mg/dL Invalid Interpretation Code [facility] Work Phone: [phone] Hematocrit (HCT) 42.4 % Invalid Interpretation Code [facility] Work Phone: [phone] Hemoglobin mass conc (Bld) 14.3 g/dL Invalid Interpretation Code [facility] Work Phone: [phone] LDL Cholesterol 93 mg/dL Invalid Interpretation Code [facility] Work Phone: [phone] MCH 30.4 pg Invalid Interpretation Code [facility] Work Phone: [phone] MCHC mass conc (RBC) 33.7 g/dL Invalid Interpretation Code [facility] Work Phone: [phone] MCV 90.0 fL Invalid Interpretation Code [facility] Work Phone: [phone] Platelets 249 10*3/mm3 Invalid Interpretation Code [facility] Work Phone: [phone] PMV by Eleanor 10.7 fL Invalid Interpretation Code [facility] Work Phone: [phone] Triglyceride 138 mg/dL Invalid Interpretation Code [facility] Work Phone: [phone] very low density lipoproteins 28 mg/dL Invalid Interpretation Code [facility] Work Phone: [phone] WBC (Leukocytes) 7.4 10*3/uL Invalid Interpretation Code [facility] Work Phone: [phone] Lab Report: Erythrocyte Sed Rateon 01-23-2016 Erythrocyte sedimentation rate 9 mm/h Invalid Interpretation Code 0-20 [facility] Work Phone: [phone] Office Visit: 3rd toe(s) ost eo- L 3rd distal fracture/osteo- MSSA;Levoquin D8on 01-23-2016 Smoking cessation education (procedure) yes Invalid Interpretation Code [facility]: [phone] Lab Report: Liver Profileon 11-20-2015 Bilirubin (direct) 0.13 mg/dL Invalid Interpretation Code 0.00-0.30 [facility] Work Phone: [phone]) Office Visit: [facility] 11-17-19 16 General cardiovascular disease 10Y risk [#] Jud.D'Agostino 27 % Invalid Interpretation Code [facility]: [phone] Replaced Document: Fabian Grant CG Observationson 11-17-2015 EKG QRS axis 35 deg Invalid Interpretation Code [facility] Work Phone: [phone] Interpretation Sinus Rhythm - occasional PAC # PACs = 1.WITHIN NORMAL LIMITS Invalid Interpretation Code [facility] Work Phone: [phone] P Marshall 46 deg Invalid Interpretation Code [facility] Work Phone: [phone] WA Interval 132 ms Invalid Interpretation Code [facility] Work Phone: [phone] Pulse (Heart Rate) 60 /min Invalid Interpretation Code [facility] Work Phone: [phone] QRS Duration 102 ms Invalid Interpretation Code [facility] Work Phone: [phone] QT Interval new path ms Invalid Interpretation Code [facility] Work Phone: [phone] T Marshall 35 deg Invalid Interpretation Code [facility]: [phone] Lab Report: Renal Profileon 08-25-2015 PHOS 3.0 mg/dL Invalid Interpretation Code 2.5-4.9 [facility] Work Phone: [phone] Replaced Document: (P) CBC W /Diff, Automatedon 08-25-2015 Absolute Neut 5.0 X10 3/UL Invalid Interpretation Code 2.0-7.7 [facility] Work Phone: [phone] Basophils/100 WBC Auto (Bld) 0.6 % Invalid Interpretation Code 0-1 [facility] Work Phone: [phone] Eosinophils/100 leukocytes 14.7 % High 0-5 [facility] Work Phone: [phone] Immature granulocytes/100 WBC (Bld) 0.300 % Invalid Interpretation Code 0.0-0.9 [facility]: [phone] Lymphocytes 1.60 X10 3/UL Invalid Interpretation Code 0.83-4.51 [facility]: [phone] Lymphocytes/100 leukocytes 18.4 % Low 19-41 [facility] Work Phone: [phone] Monocytes/100 leukocytes 8.8 % Invalid Interpretation Code 0-10 [facility]: [phone] Neutrophils/100 WBC Auto (Bld) 57.2 % Invalid Interpretation Code 47-70 [facility]: [phone] RDW SD 42.6 fL Invalid Interpretation Code 35.1-43.9 [facility] Work Phone: [phone] Office Visiton 05-30-2015 cardiac risk group C Invalid Interpretation Code [facility]: [phone] Office Visit: MMMon 06-22-20 14 Thyroid stimulating hormone (TSH) 1.67 u[iU]/mL Invalid Interpretation Code [facility]: [phone] External Other: [employer] thod of Contacton 06-03-2014 methcontact secmsg Invalid Interpretation Code [facility] Work Phone: Replaced Document: Midmark E CG Observationson 06-11-2013 Pulse (Heart Rate) 400 ms Invalid Interpretation Code [facility] Work Phone: [phone] Clinical Lists Update: [employer] 11-01-2011 Glucose mass conc 143 mg/dL Invalid Interpretation Code [facility] Work Phone: [phone] MCHC mass conc (RBC) 34.3 % Invalid Interpretation Code [facility] Work Phone: [phone] Anaerobic culture Bacteria identified Anaer cx Nom (Unsp spec) No anaerobic bacteria isolated. [facility] Work Phone: Bacteria identified Anaer cx Nom (Unsp spec) Anaerobic Culture Anaerococcus prevotii [facility] Work Phone: [phone] Anaerobic Culture Anaerobic cocci [facility] Work Phone: [phone] Anaerobic microbial culture No anaerobic bacteria isolated. [facility] Work Phone: Bacteria identified Cx Nom ( Wound) Wound Culture Staphylococcus aureus [facility] Work Phone: [phone] Wound Culture Staphylococcus epidermidis [facility] Work Phone: Wound Culture Corynebacterium species [facility] Work Phone: Wound Culture Pseudomonas aeroginosa [facility] Work Phone: [phone] Wound Culture Staphylococcus lugdunensis [facility] Work Phone: [phone] Gram stain for investigation of transfusion reaction Microscopic observation Gram stain Nom (Unsp spec) [facility] Work Phone: Vital Signs Date Time Vital Sign Value Performing Clinician Facility 06-29-2025 00:03-0400 Body height 182.[address] Zach Turner MD Work Phone: [facility] 06-29-2025 00:03-0400 Body mass index (BMI) [Ratio] 23.6 kg/m2 Dr. Zach Turner MD Work Phone: [facility] 06-29-2025 00:03-0400 Body weight 79.[address] Zach Turner MD Work Phone: [facility] 06-28-2025 23:43-0400 Body temperature 98 [degF] Dr. Zach Turner MD Work Phone: 6(083)552-403858 [place] [address] 06-28-2025 23:43-0400 Diastolic blood pressure 90 mm[Hg] Dr. Zach Turner MD Work Phone: 1(559)352-875758 [place] [address] 06-28-2025 23:43-0400 Heart rate 90 /min Dr. Zach Turner MD Work Phone: 9(459)731-622558 [place] [address] 06-28-2025 23:43-0400 Respiratory rate 18 /min Dr. Zach Turner MD Work Phone: 9(872)027-652114 [place] [address] 06-28-2025 23:43-0400 SaO2% (BldA) [Mass fraction] 100 % Dr. Zach Turner MD Work Phone: 4(697)764-211814 [place] [address] 06-28-2025 23:43-0400 Systolic blood pressure 145 mm[Hg] Dr. Zach Turner MD Work Phone: 3(203)045-820114 [place] [address] 06-21-2025 20:05-0400 Body temperature 98.1 [degF] Dr. Zach Turner MD Work Phone: 2(735)723-095114 [place] [address] 06-21-2025 20:05-0400 Diastolic blood pressure 68 mm[Hg] Dr. Zach Turner MD Work Phone: 0(725)375-737014 [place] [address] 06-21-2025 20:05-0400 Heart rate 70 /min Dr. Zach Turner MD Work Phone: 5(239)189-554614 [place] [address] 06-21-2025 20:05-0400 Respiratory rate 18 /min Dr. Zach Turner MD Work Phone: [facility] 06-21-2025 20:05-0400 SaO2% (BldA) [Mass fraction] 97 % Dr. Zach Turner MD Work Phone: 2(467)012-916958 [place] [address] 06-21-2025 20:05-0400 Systolic blood pressure 148 mm[Hg] Dr. Zach Turner MD Work Phone: 7(105)206-208447 [address] 06-21-2025 17:20-0400 Body mass index (BMI) [Ratio] 24.4 kg/m2 Dr. Zach Turner MD Work Phone: [facility] 06-21-2025 17:20-0400 Body weight 81.[address] Zach Turner MD Work Phone: [facility] 06-21-2025 15:52-0400 Body height 182.[address] Zach Turner MD Work Phone: [facility] 06-12-2025 11:17-0400 Diastolic blood pressure 82 mm[Hg] Georgina Moore MD Work Phone: [facility] 06-12-2025 11:17-0400 Heart rate 82 /min Georgina Moore MD Work Phone: [facility] 06-12-2025 11:17-0400 Systolic blood pressure 135 mm[Hg] Georgina Moore MD Work Phone: [facility] 06-07-2025 14:47-0400 Body temperature 98.3 [degF] Dr. Zach Turner MD Work Phone: [facility] 06-07-2025 14:47-0400 Diastolic blood pressure 56 mm[Hg] Dr. Zach Turner MD Work Phone: [facility] 06-07-2025 14:47-0400 Heart rate 78 /min Dr. Zach Turner MD Work Phone: [facility] 06-07-2025 14:47-0400 Respiratory rate 16 /min Dr. Zach Turner MD Work Phone: [facility] 06-07-2025 14:47-0400 SaO2% (BldA) [Mass fraction] 97 % Dr. Zach Turner MD Work Phone: [facility] 06-07-2025 14:47-0400 Systolic blood pressure 108 mm[Hg] Dr. Zach Turner MD Work Phone: [facility] 06-07-2025 10:57-0400 Body height 182.[address] Zahc Turner MD Work Phone: [facility] 06-07-2025 10:57-0400 Body mass index (BMI) [Ratio] 25.4 kg/m2 Dr. Zach Turner MD Work Phone: [facility] 06-07-2025 10:57-0400 Body weight 85.[address] Zach Turner MD Work Phone: [facility] 05-30-2025 11:43-0400 Body height 182.9 cm Christina Cartagena MD Work Phone: [facility] 05-30-2025 11:43-0400 Body mass index (BMI) [Ratio] 25.67 kg/m2 Christina Cartagena MD Work Phone: [facility] 05-30-2025 11:43-0400 Body weight 85.87 kg Christina Cartagena MD Work Phone: [facility] 05-30-2025 11:43-0400 Diastolic blood pressure 76 mm[Hg] Christina Cartagena MD Work Phone: [facility] 05-30-2025 11:43-0400 Heart rate 71 /min Christina Cartagena MD Work Phone: [facility] 05-30-2025 11:43-0400 SaO2% (BldA) [Mass fraction] 98 % Christina Cartagena MD Work Phone: [facility] 05-30-2025 11:43-0400 Systolic blood pressure 110 mm[Hg] Christina Cartagena MD Work Phone: [facility] 04-17-2025 14:37-0400 Heart rate 84 /min Dr. Zach Turner MD Work Phone: [facility] 04-17-2025 14:36-0400 Body temperature 98.4 [degF] Dr. Zach Turner MD Work Phone: [facility] 04-17-2025 14:36-0400 Diastolic blood pressure 79 mm[Hg] Dr. Zach Turner MD Work Phone: [facility] 04-17-2025 14:36-0400 Respiratory rate 16 /min Dr. Zach Turner MD Work Phone: 9(052)555-541914 [place] [address] 04-17-2025 14:36-0400 SaO2% (BldA) [Mass fraction] 98 % Dr. Zach Turner MD Work Phone: 7(179)480-478214 [place] [address] 04-17-2025 14:36-0400 Systolic blood pressure 141 mm[Hg] Dr. Zach Turner MD Work Phone: 7(456)746-004914 [place] [address] 04-17-2025 06:00-0400 Body mass index (BMI) [Ratio] 26.7 kg/m2 Dr. Zach Turner MD Work Phone: 2(951)759-448014 [place] [address] 04-17-2025 06:00-0400 Body weight 89.[address] Zach Turner MD Work Phone: 4(056)344-026714 [place] [address] 04-16-2025 19:54-0400 Inhaled oxygen flow rate 2 L/min Dr. Zach Turner MD Work Phone: 1(102)452-958014 [place] [address] 04-16-2025 15:44-0400 Body height 182.[address] Zach Turner MD Work Phone: 7(386)790-433014 [place] [address] 04-15-2025 17:55-0400 Body temperature 97.9 [degF] Dr. Zach Turner MD Work Phone: 0(933)076-683014 [place] [address] 04-15-2025 17:55-0400 Diastolic blood pressure 90 mm[Hg] Dr. Zach Turner MD Work Phone: 3(518)915-087014 [place] [address] 04-15-2025 17:55-0400 Heart rate 63 /min Dr. Zach Turner MD Work Phone: 4(018)312-889514 [place] [address] 04-15-2025 17:55-0400 Respiratory rate 10 /min Dr. Zach Turner MD Work Phone: 7(121)562-886814 [place] [address] 04-15-2025 17:55-0400 SaO2% (BldA) [Mass fraction] 99 % Dr. Zach Turner MD Work Phone: 6(117)525-227014 [place] [address] 04-15-2025 17:55-0400 Systolic blood pressure 143 mm[Hg] Dr. Zach Turner MD Work Phone: 0(844)111-554714 [place] [address] 04-15-2025 15:13-0400 Body height 182.[address] Zach Turner MD Work Phone: 0(107)238-451314 [place] [address] 04-15-2025 15:13-0400 Body mass index (BMI) [Ratio] 27 kg/m2 Dr. Zach Turner MD Work Phone: 8(495)098-224614 [place] [address] 04-15-2025 15:13-0400 Body weight 90.[address] Zach Turner MD Work Phone: 1(008)370-141514 [place] [address] 04-04-2025 13:13-0400 Body temperature 97.8 [degF] Dr. Zach Turner MD Work Phone: 0(144)052-666414 [place] [address] 04-04-2025 13:13-0400 Diastolic blood pressure 71 mm[Hg] Dr. Zach Turner MD Work Phone: 6(543)205-865114 [place] [address] 04-04-2025 13:13-0400 Heart rate 60 /min Dr. Zach Turner MD Work Phone: 5(748)678-336514 [place] [address] 04-04-2025 13:13-0400 Respiratory rate 16 /min Dr. Zach Turner MD Work Phone: 9(233)862-995614 [place] [address] 04-04-2025 13:13-0400 SaO2% (BldA) [Mass fraction] 100 % Dr. Zach Turner MD Work Phone: 5(225)158-659714 [place] [address] 04-04-2025 13:13-0400 Systolic blood pressure 129 mm[Hg] Dr. Zach Turner MD Work Phone: 1(893)042-916114 [place] [address] 04-04-2025 10:12-0400 Body mass index (BMI) [Ratio] 26.2 kg/m2 Dr. Zach Turner MD Work Phone: 5(083)983-971814 [place] [address] 04-04-2025 10:12-0400 Body weight 87.[address] Zach Turner MD Work Phone: 4(554)332-478714 [place] [address] 03-08-2025 11:21-0400 Body height 182.[address] Zach Turner MD Work Phone: [facility] 03-08-2025 11:21-0400 Body mass index (BMI) [Ratio] 25 kg/m2 Dr. Zach Turner MD Work Phone: [facility] 03-08-2025 11:21-0400 Body weight 83.[address] Zach Turner MD Work Phone: [facility] 03-08-2025 11:21-0400 Diastolic blood pressure 71 mm[Hg] Dr. Zach Turner MD Work Phone: [facility] 03-08-2025 11:21-0400 Heart rate 75 /min Dr. Zach Turner MD Work Phone: 1(462)969-111458 [place] [address] 03-08-2025 11:21-0400 Respiratory rate 18 /min Dr. Zach Turner MD Work Phone: [facility] 03-08-2025 11:21-0400 SaO2% (BldA) [Mass fraction] 98 % Dr. Zach Turner MD Work Phone: [facility] 03-08-2025 11:21-0400 Systolic blood pressure 111 mm[Hg] Dr. Zach Turner MD Work Phone: [facility] 02-28-2025 11:01-0400 Body mass index (BMI) [Ratio] 24.63 kg/m2 Christina Cartagena MD Work Phone: [facility] 02-28-2025 11:01-0400 Body weight 82.37 kg Christina Cartagena MD Work Phone: [facility] 02-28-2025 11:01-0400 Diastolic blood pressure 58 mm[Hg] Christina Cartagena MD Work Phone: [facility] 02-28-2025 11:01-0400 Systolic blood pressure 110 mm[Hg] Christina Cartagena MD Work Phone: [facility] 02-21-2025 09:58-0400 Body height 182.[address] Zach Turner MD Work Phone: [facility] 02-21-2025 09:58-0400 Body mass index (BMI) [Ratio] 24.8 kg/m2 Dr. Zach Turner MD Work Phone: [facility] 02-21-2025 09:58-0400 Body temperature 96.8 [degF] Dr. Zach Turner MD Work Phone: [facility] 02-21-2025 09:58-0400 Body weight 83.[address] Zach Turner MD Work Phone: [facility] 02-21-2025 09:58-0400 Diastolic blood pressure 65 mm[Hg] Dr. Zach Turner MD Work Phone: 1(938)241-690358 [place] [address] 02-21-2025 09:58-0400 Heart rate 71 /min Dr. Zach Turner MD Work Phone: [facility] 02-21-2025 09:58-0400 Respiratory rate 16 /min Dr. Zach Turner MD Work Phone: [facility] 02-21-2025 09:58-0400 SaO2% (BldA) [Mass fraction] 100 % Dr. Zach Turner MD Work Phone: [facility] 02-21-2025 09:58-0400 Systolic blood pressure 111 mm[Hg] Dr. Zach Turner MD Work Phone: [facility] 01-25-2025 12:01-0400 Body height 182.9 cm Coco Shah Jr., DO Work Phone: [facility] 01-25-2025 12:01-0400 Body mass index (BMI) [Ratio] 25.36 kg/m2 Coco Shah Jr., DO Work Phone: [facility] 01-25-2025 12:01-0400 Body weight 84.82 kg Coco Shah Jr., DO Work Phone: [facility] 01-25-2025 12:01-0400 Diastolic blood pressure 60 mm[Hg] Coco Shah Jr., DO Work Phone: [facility] 01-25-2025 12:01-0400 Systolic blood pressure 110 mm[Hg] Coco Shah Jr., DO Work Phone: [facility] 01-09-2025 09:59-0500 Body temperature 97.5 [degF] Dr. Zach Turner MD Work Phone: [facility] 01-09-2025 09:59-0500 Body weight 87.[address] Zach Turner MD Work Phone: [facility] 01-09-2025 09:59-0500 Diastolic blood pressure 69 mm[Hg] Dr. Zach Turner MD Work Phone: [facility] 01-09-2025 09:59-0500 Heart rate 78 /min Dr. Zach Turner MD Work Phone: [facility] 01-09-2025 09:59-0500 Respiratory rate 16 /min Dr. Zach Turner MD Work Phone: [facility] 01-09-2025 09:59-0500 SaO2% (BldA) [Mass fraction] 99 % Dr. Zach Turner MD Work Phone: [facility] 01-09-2025 09:59-0500 Systolic blood pressure 104 mm[Hg] Dr. Zcah Turner MD Work Phone: [facility] 12-25-2024 10:15-0500 Body mass index (BMI) [Ratio] 25.6 kg/m2 Dr. Zach Turner MD Work Phone: [facility] 12-25-2024 10:15-0500 Body temperature 97.3 [degF] Dr. Zach Turner MD Work Phone: [facility] 12-25-2024 10:15-0500 Body weight 85.[address] Zach Turner MD Work Phone: [facility] 12-25-2024 10:15-0500 Diastolic blood pressure 79 mm[Hg] Dr. Zach Turner MD Work Phone: 4(749)987-741658 [place] [address] 12-25-2024 10:15-0500 Heart rate 79 /min Dr. Zach Turner MD Work Phone: 1(529)402-467314 [place] [address] 12-25-2024 10:15-0500 Respiratory rate 16 /min Dr. Zach Turner MD Work Phone: 9(507)005-112114 [place] [address] 12-25-2024 10:15-0500 SaO2% (BldA) [Mass fraction] 98 % Dr. Zach Turner MD Work Phone: 1(423)909-670514 [place] [address] 12-25-2024 10:15-0500 Systolic blood pressure 144 mm[Hg] Dr. Zach Turner MD Work Phone: 4(810)744-437514 [place] [address] 11-09-2024 10:14-0500 Body mass index (BMI) [Ratio] 27.7 kg/m2 Dr. Zach Turner MD Work Phone: 6(748)883-576247 [address] 11-09-2024 10:14-0500 Body temperature 97 [degF] Dr. Zach Turner MD Work Phone: 8(627)352-437614 [place] [address] 11-09-2024 10:14-0500 Body weight 92.[address] Zach Turner MD Work Phone: 9(523)440-275314 [place] [address] 11-09-2024 10:14-0500 Diastolic blood pressure 68 mm[Hg] Dr. Zach Turner MD Work Phone: 4(316)077-962658 [place] [address] 11-09-2024 10:14-0500 Heart rate 84 /min Dr. Zach Turner MD Work Phone: 6(133)470-364914 [address] [place] [id number] 11-09-2024 10:14-0500 Respiratory rate 16 /min Dr. Zach Turner MD Work Phone: 9(227)[phone] [address] 11-09-2024 10:14-0500 SaO2% (BldA) [Mass fraction] 97 % Dr. Zach Turner MD Work Phone: 0(693)[phone] [place] [address] 11-09-2024 10:14-0500 Systolic blood pressure 116 mm[Hg] Dr. Zach Turner MD Work Phone: [facility] 05-07-2024 11:55-0400 Body height 182.9 cm Coco Shah Jr., DO Work Phone: [facility] 05-07-2024 11:55-0400 Body mass index (BMI) [Ratio] 28.89 kg/m2 Coco Shah Jr., DO Work Phone: [facility] 05-07-2024 11:55-0400 Body weight 96.62 kg Coco Shah Jr., DO Work Phone: [facility] 05-07-2024 11:55-0400 Diastolic blood pressure 70 mm[Hg] Coco Shah Jr., DO Work Phone: [facility] 05-07-2024 11:55-0400 Heart rate 83 /min Coco Shah Jr., DO Work Phone: [facility] 05-07-2024 11:55-0400 SaO2% (BldA) [Mass fraction] 98 % Coco Shah Jr., DO Work Phone: [facility] 05-07-2024 11:55-0400 Systolic blood pressure 132 mm[Hg] Coco hSah Jr., DO Work Phone: [facility] 02-24-2024 10:11-0400 Body height 182.88 cm [facility] 02-24-2024 10:11-0400 Body mass index (BMI) [Ratio] 28.6 kg/m2 [facility] 02-24-2024 10:11-0400 Body temperature 97.2 [degF] [facility] 02-24-2024 10:11-0400 Body weight 95.88 kg [facility] 02-24-2024 10:11-0400 Diastolic blood pressure 52 mm[Hg] [facility] 02-24-2024 10:11-0400 Heart rate 80 /min [facility] 02-24-2024 10:11-0400 Respiratory rate 16 /min [facility] 02-24-2024 10:11-0400 SaO2% (BldA) [Mass fraction] 98 % [facility] 02-24-2024 10:11-0400 Systolic blood pressure 125 mm[Hg] [facility] 01-13-2024 10:21-0500 Body height 182.88 cm [facility] 01-13-2024 10:21-0500 Body mass index (BMI) [Ratio] 28 kg/m2 [facility] 01-13-2024 10:21-0500 Body temperature 97.4 [degF] [facility] 01-13-2024 10:21-0500 Body weight 93.89 kg [facility] 01-13-2024 10:21-0500 Diastolic blood pressure 79 mm[Hg] [facility] 01-13-2024 10:21-0500 Heart rate 72 /min [facility] 01-13-2024 10:21-0500 Respiratory rate 16 /min [facility] 01-13-2024 10:21-0500 SaO2% (BldA) [Mass fraction] 98 % [facility] 01-13-2024 10:21-0500 Systolic blood pressure 134 mm[Hg] [facility] 11-11-2023 10:04-0500 Body height 182.88 cm [facility] 11-11-2023 10:04-0500 Body mass index (BMI) [Ratio] 29 kg/m2 [facility] 11-11-2023 10:04-0500 Body temperature 97.4 [degF] [facility] 11-11-2023 10:04-0500 Body weight 97.25 kg [facility] 11-11-2023 10:04-0500 Diastolic blood pressure 63 mm[Hg] [facility] 11-11-2023 10:04-0500 Heart rate 77 /min [facility] 11-11-2023 10:04-0500 Respiratory rate 16 /min [facility] 11-11-2023 10:04-0500 SaO2% (BldA) [Mass fraction] 98 % [facility] 11-11-2023 10:04-0500 Systolic blood pressure 167 mm[Hg] [facility] 10-26-2023 14:38-0500 Body height 182.9 cm Coco Shah Jr., DO Work Phone: [facility] 10-26-2023 14:38-0500 Body mass index (BMI) [Ratio] 30.53 kg/m2 Coco Shah Jr., DO Work Phone: [facility] 10-26-2023 14:38-0500 Body temperature 98.71 [degF] Coco Shah Jr., DO Work Phone: [facility] 10-26-2023 14:38-0500 Body weight 102.1 kg Coco Shah Jr., DO Work Phone: [facility] 10-26-2023 14:38-0500 Diastolic blood pressure 78 mm[Hg] Coco Shah Jr., DO Work Phone: [facility] 10-26-2023 14:38-0500 Systolic blood pressure 118 mm[Hg] Coco Ashishfabienne Wilson, DO Work Phone: [facility] 09-30-2023 13:45-0500 Body temperature 97.1 [degF] [facility] 09-30-2023 13:45-0500 Diastolic blood pressure 67 mm[Hg] [facility] 09-30-2023 13:45-0500 Heart rate 75 /min [facility] 09-30-2023 13:45-0500 Systolic blood pressure 130 mm[Hg] [facility] 09-30-2023 10:09-0500 Body height 182.88 cm [facility] 09-30-2023 10:09-0500 Body mass index (BMI) [Ratio] 30.1 kg/m2 [facility] 09-30-2023 10:09-0500 Body weight 100.78 kg [facility] 09-30-2023 10:09-0500 Respiratory rate 16 /min [facility] 09-30-2023 10:09-0500 SaO2% (BldA) [Mass fraction] 99 % [facility] 08-19-2023 10:09-0400 Body height 182.88 cm [facility] 08-19-2023 10:09-0400 Body mass index (BMI) [Ratio] 29.1 kg/m2 [facility] 08-19-2023 10:09-0400 Body temperature 96.4 [degF] [facility] 08-19-2023 10:09-0400 Body weight 97.43 kg [facility] 08-19-2023 10:09-0400 Diastolic blood pressure 75 mm[Hg] [facility] 08-19-2023 10:09-0400 Heart rate 94 /min [facility] 08-19-2023 10:09-0400 Respiratory rate 16 /min [facility] 08-19-2023 10:09-0400 SaO2% (BldA) [Mass fraction] 99 % [facility] 08-19-2023 10:09-0400 Systolic blood pressure 143 mm[Hg] [facility] 07-08-2023 10:24-0400 Body height 182.88 cm [facility] 07-08-2023 10:24-0400 Body mass index (BMI) [Ratio] 29 kg/m2 [facility] 07-08-2023 10:24-0400 Body temperature 97.6 [degF] [facility] 07-08-2023 10:24-0400 Body weight 97.15 kg [facility] 07-08-2023 10:24-0400 Diastolic blood pressure 64 mm[Hg] [facility] 07-08-2023 10:24-0400 Heart rate 86 /min [facility] 07-08-2023 10:24-0400 Respiratory rate 16 /min [facility] 07-08-2023 10:24-0400 SaO2% (BldA) [Mass fraction] 98 % [facility] 07-08-2023 10:24-0400 Systolic blood pressure 125 mm[Hg] [facility] 07-04-2023 12:52-0400 Body height 182.9 cm Coco Shah JrKeerthi, DO Work Phone: [facility] 07-04-2023 12:52-0400 Body mass index (BMI) [Ratio] 30.53 kg/m2 Coco Shah Jr., DO Work Phone: [facility] 07-04-2023 12:52-0400 Body temperature 97.81 [degF] Coco Shah JrKeerthi, DO Work Phone: [facility] 07-04-2023 12:52-0400 Body weight 102.1 kg Coco Shah , DO Work Phone: [facility] 07-04-2023 12:52-0400 Diastolic blood pressure 84 mm[Hg] Coco Shah , DO Work Phone: [facility] 07-04-2023 12:52-0400 Systolic blood pressure 118 mm[Hg] Coco Shah JrKeerthi, DO Work Phone: [facility] 05-27-2023 09:58-0400 Body height 182.[address] Zach Turner Work Phone: [facility] 05-27-2023 09:58-0400 Body mass index (BMI) [Ratio] 28.6 kg/m2 Dr. Zach Turner Work Phone: [facility] 05-27-2023 09:58-0400 Body temperature 97.2 [degF] Dr. Zach Turner Work Phone: [facility] 05-27-2023 09:58-0400 Body weight 95.[address] Zach Turner Work Phone: [facility] 05-27-2023 09:58-0400 Diastolic blood pressure 52 mm[Hg] Dr. Zach Turner Work Phone: [facility] 05-27-2023 09:58-0400 Heart rate 62 /min Dr. Zach Turner Work Phone: [facility] 05-27-2023 09:58-0400 Respiratory rate 16 /min Dr. Zach Turner Work Phone: [facility] 05-27-2023 09:58-0400 SaO2% (BldA) [Mass fraction] 96 % Dr. Zach Turner Work Phone: [facility] 05-27-2023 09:58-0400 Systolic blood pressure 116 mm[Hg] Dr. Zach Turner Work Phone: [facility] 03-25-2023 09:41-0400 Body height 182.[address] Zach Turner Work Phone: [facility] 03-25-2023 09:41-0400 Body mass index (BMI) [Ratio] 29 kg/m2 Dr. Zach Turner Work Phone: [facility] 03-25-2023 09:41-0400 Body weight 97.[address] Zach Turner Work Phone: [facility] 03-25-2023 09:41-0400 Diastolic blood pressure 62 mm[Hg] Dr. Zach Turner Work Phone: [facility] 03-25-2023 09:41-0400 Heart rate 68 /min Dr. Zach Turner Work Phone: [facility] 03-25-2023 09:41-0400 Respiratory rate 16 /min Dr. Zach Turner Work Phone: [facility] 03-25-2023 09:41-0400 SaO2% (BldA) [Mass fraction] 100 % Dr. Zach Turner Work Phone: [facility] 03-25-2023 09:41-0400 Systolic blood pressure 137 mm[Hg] Dr. Zach Turner Work Phone: [facility] 02-27-2023 08:44-0400 Heart rate 68 /min [facility] 02-27-2023 08:28-0400 Body temperature 98 [degF] [facility] 02-27-2023 08:28-0400 Diastolic blood pressure 72 mm[Hg] [facility] 02-27-2023 08:28-0400 Respiratory rate 18 /min [facility] 02-27-2023 08:28-0400 SaO2% (BldA) [Mass fraction] 100 % [facility] 02-27-2023 08:28-0400 Systolic blood pressure 156 mm[Hg] [facility] 02-26-2023 10:29-0400 Body height 182.88 cm [facility] 02-26-2023 10:29-0400 Body weight 95.7 kg [facility] 02-25-2023 17:23-0400 Body mass index (BMI) [Ratio] 28.6 kg/m2 [facility] 02-25-2023 14:52-0400 Body temperature 98.2 [degF] [facility] 02-25-2023 14:52-0400 Diastolic blood pressure 62 mm[Hg] [facility] 02-25-2023 14:52-0400 Heart rate 82 /min [facility] 02-25-2023 14:52-0400 Respiratory rate 18 /min [facility] 02-25-2023 14:52-0400 SaO2% (BldA) [Mass fraction] 96 % [facility] 02-25-2023 14:52-0400 Systolic blood pressure 145 mm[Hg] [facility] 02-25-2023 12:02-0400 Body height 182.88 cm [facility] 02-25-2023 12:02-0400 Body mass index (BMI) [Ratio] 29 kg/m2 [facility] 02-25-2023 12:02-0400 Body weight 97.29 kg [facility] 02-11-2023 09:33-0400 Body height 182.88 cm [facility] 02-11-2023 09:33-0400 Body mass index (BMI) [Ratio] 29 kg/m2 [facility] 02-11-2023 09:33-0400 Body temperature 97 [degF] [facility] 02-11-2023 09:33-0400 Body weight 96.88 kg [facility] 02-11-2023 09:33-0400 Diastolic blood pressure 59 mm[Hg] [facility] 02-11-2023 09:33-0400 Heart rate 45 /min [facility] 02-11-2023 09:33-0400 Respiratory rate 16 /min [facility] 02-11-2023 09:33-0400 SaO2% (BldA) [Mass fraction] 100 % [facility] 02-11-2023 09:33-0400 Systolic blood pressure 154 mm[Hg] [facility] 01-06-2023 10:40-0500 Body temperature 95.1 [degF] [facility] 01-06-2023 10:40-0500 Diastolic blood pressure 75 mm[Hg] [facility] 01-06-2023 10:40-0500 Heart rate 57 /min [facility] 01-06-2023 10:40-0500 Systolic blood pressure 96 mm[Hg] [facility] 12-31-2022 10:24-0500 Body mass index (BMI) [Ratio] 29.1 kg/m2 [facility] 12-31-2022 10:24-0500 Body temperature 96.6 [degF] [facility] 12-31-2022 10:24-0500 Body weight 97.52 kg [facility] 12-31-2022 10:24-0500 Diastolic blood pressure 78 mm[Hg] [facility] 12-31-2022 10:24-0500 Heart rate 56 /min [facility] 12-31-2022 10:24-0500 Respiratory rate 16 /min [facility] 12-31-2022 10:24-0500 SaO2% (BldA) [Mass fraction] 100 % [facility] 12-31-2022 10:24-0500 Systolic blood pressure 149 mm[Hg] [facility] 12-30-2022 10:20-0500 Respiratory rate 18 /min [facility] 12-01-2022 09:50-0500 Body temperature 96.3 [degF] Dr. Zach Turner Work Phone: [facility] 12-01-2022 09:50-0500 Diastolic blood pressure 67 mm[Hg] Dr. Zcah Turner Work Phone: [facility] 12-01-2022 09:50-0500 Heart rate 67 /min Dr. Zach Turner Work Phone: [facility] 12-01-2022 09:50-0500 Systolic blood pressure 139 mm[Hg] Dr. Zach Turner Work Phone: 9(255)989-975558 [place] [address] 11-24-2022 09:40-0500 Respiratory rate 16 /min Dr. Zach Turner Work Phone: 2(774)286-864358 [place] [address] 11-19-2022 10:18-0500 Body height 182.[address] Zach Turner Work Phone: 3(901)[phone] [address] 11-19-2022 10:18-0500 Body mass index (BMI) [Ratio] 30.4 kg/m2 Dr. Zach Turner Work Phone: 5(037)325-095958 [place] [address] 11-19-2022 10:18-0500 Body temperature 97.3 [degF] Dr. Zach Turner Work Phone: 1(559)[phone] [place] [address] 11-19-2022 10:18-0500 Body weight 101.[address] Zach Turner Work Phone: 9(142)[phone] [address] 11-19-2022 10:18-0500 Diastolic blood pressure 67 mm[Hg] Dr. Zach Turner Work Phone: 3(659)[phone] [place] [address] 11-19-2022 10:18-0500 Heart rate 60 /min Dr. Zach Turner Work Phone: [facility] 11-19-2022 10:18-0500 Respiratory rate 18 /min Dr. Zach Turner Work Phone: [facility] 11-19-2022 10:18-0500 SaO2% (BldA) [Mass fraction] 100 % Dr. Zach Turner Work Phone: [facility] 11-19-2022 10:18-0500 Systolic blood pressure 151 mm[Hg] Dr. Zach Turner Work Phone: [facility] 11-10-2022 09:44-0500 Body temperature 96.9 [degF] Dr. Zach Turner Work Phone: [facility] 11-10-2022 09:44-0500 Diastolic blood pressure 86 mm[Hg] Dr. Zach Turner Work Phone: [facility] 11-10-2022 09:44-0500 Heart rate 75 /min Dr. Zach Turner Work Phone: [facility] 11-10-2022 09:44-0500 Systolic blood pressure 152 mm[Hg] Dr. Zach Turner Work Phone: [facility] 10-27-2022 09:47-0500 Respiratory rate 16 /min Dr. Zach Turner Work Phone: [facility] 10-13-2022 10:01-0500 Body temperature 95.6 [degF] Dr. Zach Turner Work Phone: [facility] 10-13-2022 10:01-0500 Diastolic blood pressure 77 mm[Hg] Dr. Zach Turner Work Phone: [facility] 10-13-2022 10:01-0500 Heart rate 60 /min Dr. Zach Turner Work Phone: [facility] 10-13-2022 10:01-0500 Systolic blood pressure 154 mm[Hg] Dr. Zach Turner Work Phone: [facility] 10-08-2022 10:12-0500 Body height 182.[address] Zach Turner Work Phone: [facility] Work Phone: 10-08-2022 10:12-0500 Body mass index (BMI) [Ratio] 30.2 kg/m2 Dr. Zach Turner Work Phone: [facility] 10-08-2022 10:12-0500 Body temperature 96.2 [degF] Dr. Zach Turner Work Phone: [facility] 10-08-2022 10:12-0500 Body weight 101.[address] Zach Turner Work Phone: [facility] 10-08-2022 10:12-0500 Diastolic blood pressure 63 mm[Hg] Dr. Zach Turner Work Phone: [facility] 10-08-2022 10:12-0500 Heart rate 64 /min Dr. Zach Turner Work Phone: [facility] 10-08-2022 10:12-0500 Respiratory rate 16 /min Dr. Zach Turner Work Phone: [facility] 10-08-2022 10:12-0500 SaO2% (BldA) [Mass fraction] 97 % Dr. Zach Turner Work Phone: [facility] 10-08-2022 10:12-0500 Systolic blood pressure 114 mm[Hg] Dr. Zach Turner Work Phone: [facility] 10-06-2022 10:07-0500 Respiratory rate 16 /min Dr. Zach Turner Work Phone: [facility] 09-20-2022 13:00-0500 Body height 182.9 cm Coco Shah Jr., DO Work Phone: [facility] 09-20-2022 13:00-0500 Body mass index (BMI) [Ratio] 30.52 kg/m2 Coco Shah Jr., DO Work Phone: [facility] 09-20-2022 13:00-0500 Body temperature 98.01 [degF] Coco Shah Jr., DO Work Phone: [facility] 09-20-2022 13:00-0500 Body weight 102.06 kg Coco Shah Jr., DO Work Phone: [facility] 09-20-2022 13:00-0500 Diastolic blood pressure 78 mm[Hg] Coco Shah Jr., DO Work Phone: [facility] 09-20-2022 13:00-0500 Heart rate 70 /min Coco Shah Jr., DO Work Phone: [facility] 09-20-2022 13:00-0500 SaO2% (BldA) [Mass fraction] 97 % Coco Shah Jr., DO Work Phone: [facility] 09-20-2022 13:00-0500 Systolic blood pressure 134 mm[Hg] Coco Shah Jr., DO Work Phone: [facility] 09-08-2022 10:26-0400 Body temperature 97.3 [degF] Dr. Zach Turner Work Phone: [facility] 09-08-2022 10:26-0400 Diastolic blood pressure 82 mm[Hg] Dr. Zach Turner Work Phone: [facility] 09-08-2022 10:26-0400 Heart rate 59 /min Dr. Zach Turner Work Phone: [facility] 09-08-2022 10:26-0400 Respiratory rate 18 /min Dr. Zach Turner Work Phone: [facility] 09-08-2022 10:26-0400 Systolic blood pressure 145 mm[Hg] Dr. Zach Turner Work Phone: [facility] 08-27-2022 09:11-0400 Body temperature 97.5 [degF] [facility] 08-27-2022 09:11-0400 Body weight 100.51 kg [facility] 08-27-2022 09:11-0400 Diastolic blood pressure 79 mm[Hg] [facility] 08-27-2022 09:11-0400 Heart rate 78 /min [facility] 08-27-2022 09:11-0400 SaO2% (BldA) [Mass fraction] 98 % [facility] 08-27-2022 09:11-0400 Systolic blood pressure 110 mm[Hg] [facility] 08-25-2022 10:20-0400 Body temperature 96.7 [degF] [facility] Work Phone: 08-25-2022 10:20-0400 Diastolic blood pressure 56 mm[Hg] [facility] Work Phone: 08-25-2022 10:20-0400 Heart rate 54 /min [facility] Work Phone: 08-25-2022 10:20-0400 Respiratory rate 16 /min [facility] Work Phone: 08-25-2022 10:20-0400 Systolic blood pressure 124 mm[Hg] [facility] Work Phone: 08-11-2022 10:27-0400 Body temperature 95.9 [degF] [facility] 08-11-2022 10:27-0400 Diastolic blood pressure 77 mm[Hg] [facility] 08-11-2022 10:27-0400 Heart rate 74 /min [facility] 08-11-2022 10:27-0400 Respiratory rate 16 /min [facility] 08-11-2022 10:27-0400 Systolic blood pressure 131 mm[Hg] [facility] 07-21-2022 11:23-0400 Body temperature 97.5 [degF] [facility] Work Phone: 07-21-2022 11:23-0400 Diastolic blood pressure 64 mm[Hg] [facility] Work Phone: 07-21-2022 11:23-0400 Heart rate 72 /min [facility] Work Phone: 07-21-2022 11:23-0400 Systolic blood pressure 148 mm[Hg] [facility] Work Phone: 07-16-2022 09:13-0400 Body height 182.88 cm [facility] Work Phone: 07-16-2022 09:13-0400 Body mass index (BMI) [Ratio] 29.6 kg/m2 [facility] Work Phone: 07-16-2022 09:13-0400 Body temperature 96.4 [degF] [facility] Work Phone: 07-16-2022 09:13-0400 Body weight 99.15 kg [facility] Work Phone: 07-16-2022 09:13-0400 Diastolic blood pressure 75 mm[Hg] [facility] Work Phone: 07-16-2022 09:13-0400 Heart rate 64 /min [facility] Work Phone: 07-16-2022 09:13-0400 Respiratory rate 16 /min [facility] Work Phone: 07-16-2022 09:13-0400 SaO2% (BldA) [Mass fraction] 99 % [facility] Work Phone: 07-16-2022 09:13-0400 Systolic blood pressure 123 mm[Hg] [facility] Work Phone: 07-15-2022 00:35-0400 Respiratory rate 16 /min [facility] Work Phone: 07-14-2022 10:58-0400 Body temperature 97.5 [degF] [facility] Work Phone: 07-14-2022 10:58-0400 Diastolic blood pressure 71 mm[Hg] [facility] Work Phone: 07-14-2022 10:58-0400 Heart rate 70 /min [facility] Work Phone: 07-14-2022 10:58-0400 Respiratory rate 16 /min [facility] Work Phone: 07-14-2022 10:58-0400 Systolic blood pressure 121 mm[Hg] [facility] Work Phone: 06-16-2022 09:06-0400 Body temperature 96.2 [degF] [facility] Work Phone: 06-16-2022 09:06-0400 Diastolic blood pressure 86 mm[Hg] [facility] Work Phone: 06-16-2022 09:06-0400 Heart rate 68 /min [facility] Work Phone: 06-16-2022 09:06-0400 Respiratory rate 16 /min [facility] Work Phone: 06-16-2022 09:06-0400 Systolic blood pressure 139 mm[Hg] [facility] Work Phone: 06-09-2022 09:19-0400 Body temperature 97.2 [degF] [facility] Work Phone: 06-09-2022 09:19-0400 Diastolic blood pressure 61 mm[Hg] [facility] Work Phone: 06-09-2022 09:19-0400 Heart rate 78 /min [facility] Work Phone: 06-09-2022 09:19-0400 Systolic blood pressure 142 mm[Hg] [facility] Work Phone: 06-04-2022 10:28-0400 Body temperature 97.1 [degF] [facility] Work Phone: 06-04-2022 10:28-0400 Diastolic blood pressure 63 mm[Hg] [facility] Work Phone: 06-04-2022 10:28-0400 Heart rate 52 /min [facility] Work Phone: 06-04-2022 10:28-0400 Respiratory rate 16 /min [facility] Work Phone: 06-04-2022 10:28-0400 SaO2% (BldA) [Mass fraction] 99 % [facility] Work Phone: 06-04-2022 10:28-0400 Systolic blood pressure 115 mm[Hg] [facility] Work Phone: 06-04-2022 10:08-0400 Body weight 95.27 kg [facility] Work Phone: 05-19-2022 12:29-0400 Body height 182.9 cm Coco Shah Jr., DO Work Phone: [facility] 05-19-2022 12:29-0400 Body mass index (BMI) [Ratio] 29.57 kg/m2 Coco Shah Jr., DO Work Phone: [facility] 05-19-2022 12:29-0400 Body weight 98.88 kg Coco Ashishfabienne Wilson, DO Work Phone: [facility] 05-19-2022 12:29-0400 Diastolic blood pressure 82 mm[Hg] Coco Shah Jr., DO Work Phone: [facility] 05-19-2022 12:29-0400 Heart rate 65 /min Coco Shah Jr., DO Work Phone: [facility] 05-19-2022 12:29-0400 SaO2% (BldA) [Mass fraction] 99 % Coco Shah Jr., DO Work Phone: [facility] 05-19-2022 12:29-0400 Systolic blood pressure 128 mm[Hg] Coco Shah Jr., DO Work Phone: [facility] 05-14-2022 00:46-0400 Respiratory rate 17 /min [facility] Work Phone: 05-12-2022 09:11-0400 Body temperature 97.1 [degF] Dr. Zach Turner Work Phone: [facility] Work Phone: 05-12-2022 09:11-0400 Diastolic blood pressure 88 mm[Hg] Dr. Zach Turner Work Phone: [facility] Work Phone: 05-12-2022 09:11-0400 Heart rate 84 /min Dr. Zach Turner Work Phone: [facility] Work Phone: 05-12-2022 09:11-0400 Respiratory rate 17 /min Dr. Zach Turner Work Phone: [facility] Work Phone: 05-12-2022 09:11-0400 Systolic blood pressure 151 mm[Hg] Dr. Zach Turner Work Phone: [facility] Work Phone: 04-09-2022 10:21-0400 Body temperature 97.6 [degF] Dr. Zach Turner Work Phone: [facility] Work Phone: 04-09-2022 10:21-0400 Body weight 99.[address] Zach Turner Work Phone: [facility] Work Phone: 04-09-2022 10:21-0400 Diastolic blood pressure 88 mm[Hg] Dr. Zach Turner Work Phone: [facility] Work Phone: 04-09-2022 10:21-0400 Heart rate 62 /min Dr. Zach Turner Work Phone: [facility] Work Phone: 04-09-2022 10:21-0400 Respiratory rate 12 /min Dr. Zach Turner Work Phone: [facility] Work Phone: 04-09-2022 10:21-0400 SaO2% (BldA) [Mass fraction] 96 % Dr. Zach Turner Work Phone: [facility] Work Phone: 04-09-2022 10:21-0400 Systolic blood pressure 140 mm[Hg] Dr. Zach Turner Work Phone: [facility] Work Phone: 02-22-2022 13:30-0400 Body height 182.[address] Zach Turner Work Phone: [facility] Work Phone: 02-22-2022 13:30-0400 Body mass index (BMI) [Ratio] 29.8 kg/m2 Dr. Zach Turner Work Phone: [facility] Work Phone: 02-22-2022 13:30-0400 Body temperature 96.7 [degF] Dr. Zach Turner Work Phone: [facility] Work Phone: 02-22-2022 13:30-0400 Body weight 99.[address] Zach Turner Work Phone: [facility] Work Phone: 02-22-2022 13:30-0400 Diastolic blood pressure 115 mm[Hg] Dr. Zach Turner Work Phone: [facility] Work Phone: 02-22-2022 13:30-0400 Heart rate 59 /min Dr. Zach Turner Work Phone: [facility] Work Phone: 02-22-2022 13:30-0400 Respiratory rate 18 /min Dr. Zach Turner Work Phone: [facility] Work Phone: 02-22-2022 13:30-0400 SaO2% (BldA) [Mass fraction] 99 % Dr. Zach Turner Work Phone: [facility] Work Phone: 02-22-2022 13:30-0400 Systolic blood pressure 157 mm[Hg] Dr. Zach Turner Work Phone: [facility] Work Phone: 02-12-2022 10:08-0400 Body height 182.[address] Zach Turner Work Phone: [facility] Work Phone: 02-12-2022 10:08-0400 Body mass index (BMI) [Ratio] 30.2 kg/m2 Dr. Zach Turner Work Phone: [facility] Work Phone: 02-12-2022 10:08-0400 Body temperature 96.8 [degF] Dr. Zach Turner Work Phone: [facility] Work Phone: 02-12-2022 10:08-0400 Body weight 100.[address] Zach Turner Work Phone: [facility] Work Phone: 02-12-2022 10:08-0400 Diastolic blood pressure 103 mm[Hg] Dr. Zach Turner Work Phone: [facility] Work Phone: 02-12-2022 10:08-0400 Heart rate 83 /min Dr. Zach Turner Work Phone: [facility] Work Phone: 02-12-2022 10:08-0400 Respiratory rate 16 /min Dr. Zach Turner Work Phone: [facility] Work Phone: 02-12-2022 10:08-0400 SaO2% (BldA) [Mass fraction] 97 % Dr. Zach Turner Work Phone: [facility] Work Phone: 02-12-2022 10:08-0400 Systolic blood pressure 149 mm[Hg] Dr. Zach Turner Work Phone: [facility] Work Phone: 02-03-2022 11:21-0400 Body mass index (BMI) [Ratio] 30.1 kg/m2 Dr. Zach Turner Work Phone: [facility] Work Phone: 02-03-2022 11:21-0400 Body weight 100.[address] Zach Turner Work Phone: [facility] Work Phone: 02-03-2022 11:21-0400 Diastolic blood pressure 69 mm[Hg] Dr. Zach Turner Work Phone: [facility] Work Phone: 02-03-2022 11:21-0400 Heart rate 57 /min Dr. Zach Turner Work Phone: [facility] Work Phone: 02-03-2022 11:21-0400 Respiratory rate 18 /min Dr. Zach Turner Work Phone: [facility] Work Phone: 02-03-2022 11:21-0400 Systolic blood pressure 136 mm[Hg] Dr. Zach Turner Work Phone: [facility] Work Phone: 02-03-2022 11:21-0400 Body height 182.[address] Zach Turner Work Phone: [facility] Work Phone: 02-03-2022 11:21-0400 Body mass index (BMI) [Ratio] 30.1 kg/m2 Dr. Zach Turner Work Phone: [facility] Work Phone: 02-03-2022 11:21-0400 Body weight 100.[address] Zach Turner Work Phone: [facility] Work Phone: 02-03-2022 11:21-0400 Diastolic blood pressure 69 mm[Hg] Dr. Zach Turner Work Phone: [facility] Work Phone: 02-03-2022 11:21-0400 Heart rate 57 /min Dr. Zach Turner Work Phone: [facility] Work Phone: 02-03-2022 11:21-0400 Respiratory rate 18 /min Dr. Zach Turner Work Phone: [facility] Work Phone: 02-03-2022 11:21-0400 Systolic blood pressure 136 mm[Hg] Dr. Zach Turner Work Phone: [facility] Work Phone: 12-15-2021 09:10-0500 Body mass index (BMI) [Ratio] 31.1 kg/m2 Dr. Zach Turner Work Phone: [facility] Work Phone: 12-15-2021 09:10-0500 Body temperature 96.7 [degF] Dr. Zach Turner Work Phone: [facility] Work Phone: 12-15-2021 09:10-0500 Body weight 104.[address] Zach Turner Work Phone: [facility] Work Phone: 12-15-2021 09:10-0500 Diastolic blood pressure 74 mm[Hg] Dr. Zach Turner Work Phone: [facility] Work Phone: 12-15-2021 09:10-0500 Heart rate 63 /min Dr. Zach Turner Work Phone: [facility] Work Phone: 12-15-2021 09:10-0500 Respiratory rate 16 /min Dr. Zach Turner Work Phone: [facility] Work Phone: 12-15-2021 09:10-0500 SaO2% (BldA) [Mass fraction] 98 % Dr. Zach Turner Work Phone: [facility] Work Phone: 12-15-2021 09:10-0500 Systolic blood pressure 144 mm[Hg] Dr. Zach Turner Work Phone: [facility] Work Phone: 10-20-2021 09:00-0500 Body mass index (BMI) [Ratio] 29.9 kg/m2 Dr. Zach Turner Work Phone: [facility] Work Phone: 10-20-2021 09:00-0500 Body temperature 96 [degF] Dr. Zach Turner Work Phone: [facility] Work Phone: 10-20-2021 09:00-0500 Body weight 100.[address] Zach Turner Work Phone: [facility] Work Phone: 10-20-2021 09:00-0500 Diastolic blood pressure 67 mm[Hg] Dr. Zach Turner Work Phone: [facility] Work Phone: 10-20-2021 09:00-0500 Heart rate 68 /min Dr. Zach Turner Work Phone: [facility] Work Phone: 10-20-2021 09:00-0500 Respiratory rate 16 /min Dr. Zach Turner Work Phone: [facility] Work Phone: 10-20-2021 09:00-0500 Systolic blood pressure 141 mm[Hg] Dr. Zach Turner Work Phone: [facility] Work Phone: 03-23-2021 11:26-0400 Body height 182.9 cm Coco Shah Jr., DO Work Phone: [facility] 03-23-2021 11:26-0400 Body mass index (BMI) [Ratio] 31.87 kg/m2 Coco Shah Jr., DO Work Phone: [facility] 03-23-2021 11:26-0400 Body temperature 98.4 [degF] Coco Shah Jr., DO Work Phone: [facility] 03-23-2021 11:26-0400 Body weight 106.59 kg Coco Shah Jr., DO Work Phone: [facility] 03-23-2021 11:26-0400 Diastolic blood pressure 72 mm[Hg] Coco Shah Jr., DO Work Phone: [facility] 03-23-2021 11:26-0400 Heart rate 73 /min Coco Shah Jr., DO Work Phone: [facility] 03-23-2021 11:26-0400 SaO2% (BldA) [Mass fraction] 96 % Coco Shah Jr., DO Work Phone: [facility] 03-23-2021 11:26-0400 Systolic blood pressure 128 mm[Hg] Coco Shah Jr., DO Work Phone: [facility] 09-22-2020 11:26-0500 BMI (Body Mass Index) 32.14 kg/m2 [facility] 09-22-2020 11:26-0500 Body Temperature 97.11 [degF] [facility] 09-22-2020 11:26-0500 Body weight 107.5 kg [facility] 09-22-2020 11:26-0500 BP Diastolic 82 mm[Hg] [facility] 09-22-2020 11:26-0500 BP Systolic 122 mm[Hg] [facility] 09-22-2020 11:26-0500 Height 182.9 cm [facility] 09-22-2020 11:26-0500 Pulse (Heart Rate) 64 /min [facility] 09-22-2020 11:26-0500 Pulse Oximetry 99 % [facility] 05-14-2020 10:54-0400 BMI (Body Mass Index) 30.79 kg/m2 [facility] 05-14-2020 10:54-0400 Body Temperature 98.29 [degF] [facility] 05-14-2020 10:54-0400 Body weight 102.97 kg [facility] 05-14-2020 10:54-0400 BP Diastolic 72 mm[Hg] [facility] 05-14-2020 10:54-0400 BP Systolic 130 mm[Hg] [facility] 05-14-2020 10:54-0400 Height 182.9 cm [facility] 05-14-2020 10:54-0400 Pulse (Heart Rate) 69 /min [facility] 05-14-2020 10:54-0400 Pulse Oximetry 97 % [facility] 10-08-2019 10:26-0500 BMI (Body Mass Index) 30.65 kg/m2 [facility] 10-08-2019 10:26-0500 Body Temperature 97 [degF] [facility] 10-08-2019 10:26-0500 Body weight 102.51 kg [facility] 10-08-2019 10:26-0500 BP Diastolic 74 mm[Hg] [facility] 10-08-2019 10:26-0500 BP Systolic 128 mm[Hg] [facility] 10-08-2019 10:26-0500 Height 182.9 cm [facility] 10-08-2019 10:26-0500 Pulse (Heart Rate) 68 /min [facility] 10-08-2019 10:26-0500 Pulse Oximetry 97 % [facility] 01-22-2019 07:43-0400 BMI (Body Mass Index) 32.4 kg/m2 [facility] 01-22-2019 07:43-0400 Body Temperature 96.21 [degF] [facility] 01-22-2019 07:43-0400 Body weight 108.36 kg [facility] 01-22-2019 07:43-0400 BP Diastolic 78 mm[Hg] [facility] 01-22-2019 07:43-0400 BP Systolic 140 mm[Hg] [facility] 01-22-2019 07:43-0400 Height 182.9 cm [facility] 01-22-2019 07:43-0400 Pulse (Heart Rate) 51 /min [facility] 01-22-2019 07:43-0400 Pulse Oximetry 97 % [facility] 10-03-2017 08:10-0500 BMI (Body Mass Index) [...] Provider Facility Start: 08-05-2025 ambulatory SELF SELF [facility] Start: 07-02-2025 ambulatory Luz Hodge Facili ty:[facility] Start: 06-28-2025 Evaluation and manag ement of inpatient Dr. Zach Turner MD Work Phone: -Medical Surgical 3 Start: 06-28-2025 Dr. Coco Herman DO -Medical Surgical 3 Work Phone: Start: 06-28-2025 Dr. Miguelangel Velasquez MD -[facility] Start: 06-27-2025 ambulatory Coco buchanan Jr. Facility:[facility] Start: 06-21-2025 End: 06-21-2025 [facility] Work Phone: Start: 06-21-2025 End: 06-21-2025 Emergency department patient visit Dr. Zach Turner MD Work Phone: -Emergency Department Work Phone: Start: 06-14-2025 ambulatory Coco buchanan Jr. Facility:[facility] Start: 06-12-2025 End: 06-12-2025 Office outpatient visit 25 minutes Georigna Moore MD Work Phone: [facility] D[facility]atology - [facility] Comment on above: Skin lesion (Primary Dx); Pruritus Start: 06-12-2025 End: 06-12-2025 ambulatory GEORGINA MOORE [facility] Start: 06-11-[address] Keerthi Shah MD -[facility] [place] Work Phone: Start: 06-11-2025 Dr. Coco Shah MD -[facility] [place] Work Phone: Start: 06-11-2025 ambulatory Coco buchanan Jr. Facility:[facility] Start: 06-07-2025 End: 06-07-[address] Coco Shah MD -Medical Out Work Phone: Start: 06-07-2025 End: 06-07-2025 Dr. Coco Shah MD -Medical Out Work Phone: Start: 06-07-2025 End: 06-07-[address] Zach Turner MD Work Phone: -Medical Out Start: 05-30-2025 End: 05-30-2025 Office outpatient visit 25 minutes Christina Cartagena MD Work Phone: [facility] Nephrology 2 Comment on above: Stage 3b chronic kid marleny disease (Primary Dx) Start: 05-30-2025 ambulatory ZACH TURENR [facility] Start: 05-28-2025 End: 06-13-[address] Coco Shah MD -[facility] [place] Work Phone: Start: 05-28-[address] Coco Shah MD -[facility] [place] Work Phone: Start: 05-28-2025 End: 06-13-2025 Dr. Coco Shah MD -[facility] [place] Work Phone: Start: 05-28-2025 End: 06-13-[address] Zach Turner MD Work Phone: -[facility] [place] Start: 05-24-2025 End: 05-24-[address] Zach Turner MD Work Phone: -[facility] [place] Start: 05-24-2025 End: 05-24-[address] Memo Hernández MD -[facility] [place] Work Phone: Start: 05-24-2025 End: 05-24-2025 Dr. Memo Hernández MD -[facility] [place] Work Phone: Start: 05-24-2025 End: 05-24-2025 ambulatory Memo Hernández Facility:[facility] Start: 05-22-2025 ambulatory CHRISTINA REJI [facility] Start: 05-22-2025 End: 05-22-2025 Subsequent hospital visit by physician Christina Cartagena MD Work Phone: [facility] Ultrasound Comment on above: Arrived Start: 05-14-2025 End: 05-14-[address] Zach Turner MD Work Phone: -[facility] Start: 05-14-2025 End: 05-14-[address] Latonia Berry MD -[facility] Work Phone: Start: 05-14-2025 End: 05-14-2025 Dr. Latonia Berry MD -[facility] Work Phone: Start: 05-14-2025 End: 05-14-2025 [facility] Start: 04-17-2025 Non-patient / Non-visit Dr. Coco hood MD -[facility] Work Phone: Start: 04-17-2025 Dr. Coco Pepe MD -[facility] Work Phone: Start: 04-16-2025 Non-patient / Non-visit Dr. Coco hood MD -[facility] Work Phone: Start: 04-16-2025 Dr. Coco Pepe MD -[facility] Work Phone: Start: 04-15-2025 [facility] Start: 04-15-2025 End: 04-17-2025 Evaluation and management of inpatient Dr. Coco Pepe MD -Medical Surgical 3 Work Phone: Start: 04-15-2025 End: 04-17-2025 Dr. Coco Pepe MD -Medical Surgical 3 Work Phone: Start: 04-04-2025 End: 04-04-[address] Coco Shah MD -Medical Out Work Phone: Start: 04-04-2025 End: 04-04-2025 Dr. Coco Shah MD -Medical Out Work Phone: Start: 04-04-2025 End: 04-04-2025 ambulatory Zach Turner Facility:[facility] Start: 03-27-2025 End: 03-27-[address] Zach Turner MD Work Phone: [facility] Work Phone: Start: 03-27-2025 End: 03-27-[address] Patrick Rojas DP -[facility] [place] Work Phone: Start: 03-27-2025 End: 03-27-2025 Dr. Patrick Rojas DP -[facility] [place] Work Phone: Start: 03-27-2025 End: 03-27-2025 ambulatory Zach Turner Facility:[facility] Start: 03-08-2025 End: 03-08-[address] Chevy Gary MD -[facility] Work Phone: Start: 03-08-2025 End: 03-08-2025 Dr. Chevy Gary MD -[facility] Work Phone: Start: 03-08-2025 End: 03-08-2025 ambulatory Zach Turner Facility:[facility] Start: 02-28-2025 End: 02-28-2025 Office outpatient new 45 minutes Christina Cartagena MD Work Phone: 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 Coco Shah MD -Laboratory Work Phone: Start: 02-26-2025 End: 03-13-2025 ambulatory Coco Shah Jr. Facility:[facility] Start: 02-21-2025 End: 02-21-[address] Coco Shah MD -Medical Out Work Phone: Start: 02-21-2025 End: 02-21-[address] Zach Turner MD Work Phone: [facility] Work Phone: Start: 01-25-2025 End: 01-25-2025 Office outpatient visit 40 minutes Coco Shah DO Work Phone: [facility] Rheumatology Comment on above: Psoriatic arthritis [...] Asteatosis cutis; Actinic keratosis; Other proteinuria; Other emt intermediate (current) drug therapy; On statin therapy; Methotrexate, fpc, current use; Nocturia; Long-term current use of high risk medication other than anticoagulant; penitentiary use of drug; Infliximab (Remicade) long-term use; History of osteomyelitis; History of malignant neoplasm of skin; Difficulty in urination; Current use of emt intermediate anticoagulation; Abnormal renal function test; Psoriatic arthritis mutilans; Encounter for long-term (current) use of non-steroidal anti-inflammatories; penitentiary 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; Osteoarthritis of both knees, unspecified osteoarthritis type Start: 01-25-2025 ambulatory SELF [facility] Start: 01-09-2025 End: 01-09-2025 Patient encounter procedure Odalis MILLER -[facility] Work Phone: Start: 01-09-2025 End: 01-09-2025 ambulatory [facility] Facility:[facility] Start: 12-25-2024 End: 12-25-[address] Coco Shah MD -Medical Out Work Phone: Start: 12-25-2024 End: 12-25-2024 ambulatory [facility] Start: 11-19-2024 ambulatory SELF SELF [facility] Start: 11-09-2024 End: 11-09-[address] Coco Shah MD -Medical Out Work Phone: Start: 11-09-2024 End: 11-09-2024 ambulatory Coco Shah Jr. Facility:[facility] Start: 10-31-2024 End: 10-31-2024 Office outpatient visit 25 minutes Georgina Moore MD Work Phone: [facility] [employer] Comment on above: Actinic keratoses (P rimary Dx); Stasis dermatitis Start: 10-31-2024 End: 10-31-2024 ambulatory GEORGINA MOORE [facility] Start: 10-30-2024 End: 10-30-[address] Zach Turner MD -Laboratory, [facility] Start: 10-30-2024 End: 10-30-2024 ambulatory Zach Turner Facility:[facility] Start: 10-08-2024 End: 10-08-2024 ambulatory Zach Turner Facility:[facility] Start: 10-02-2024 End: 10-02-2024 ambulatory Zach Turner Facility:[facility] Start: 09-30-2024 End: 09-30-2024 Emergency department patient visit Bhanu Lopes Facility:[facility] Start: 09-28-2024 End: 09-28-2024 ambulatory Coco Shah Jr. Facility:[facility] Start: 09-07-2024 End: 09-07-2024 ambulatory Coco Shah Jr. Facility:[facility] Start: 08-22-2024 End: 08-22-2024 ambulatory Coco Shah Jr. Facility:[facility] Start: 08-10-2024 End: 08-10-2024 ambulatory Coco Shah Jr. Facility:[facility] Start: 08-06-2024 End: 08-06-2024 ambulatory Jose Pearce Facility:[facility] Start: 07-27-2024 End: 07-27-2024 ambulatory Chevy Gary Facility:[facility] Start: 07-17-2024 End: 07-23-2024 Telephone encounter Georgina Moore MD Work Phone: [facility] [place] Comment on above: Appointment Request Start: 07-11-2024 End: 07-11-2024 Office outpatient new 45 minutes Georgina Moore MD Work Phone: [facility] Dermatology Comment on above: Neoplasm of uncertai n behavior of skin (Primary Dx); Actinic keratoses Start: 07-11-2024 End: 07-11-2024 ambulatory GEORGINA MOORE [facility] Start: 06-29-2024 End: 06-29-2024 ambulatory Coco Shah Jr. Facility:[facility] Start: 05-07-2024 End: 05-07-2024 Office outpatient visit 15 minutes Coco Shah DO Work Phone: [facility] Rheumatology Comment on above: Psoriatic arthritis (Primary Dx); Psoriatic arthritis mutilans; Hyperchromic anemia; Macrocytic anemia; Abnormal renal function test; Encounter for long-term (current) use of non-steroidal anti-inflammatories; History of malignant neoplasm of skin; History of osteomyelitis; Infliximab (Remicade) long-term use; Long-term current use of high risk medication other than anticoagulant; On statin therapy; Other emt intermediate (current) drug therapy; Personal history of other malignant neoplasm of skin; Cervical disc disorder; Cervical disc disorder, unspecified, unspecified cervical region; Primary osteoarthritis of both knees; Psoriasis; Pustulosis palmaris et plantaris; Asteatosis cutis; Methotrexate, emt intermediate, current use; Seborrheic eczema; Eczema, unspecified type; 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 Work Phone: Start: 02-24-2024 End: 02-24-2024 Patient encounter procedure [facility] Out Work Phone: Start: 02-21-2024 End: 03-13-[address] [facility] Work Phone: Start: 02-21-2024 End: 03-13-[address] [facility]-Laboratory Work Phone: Start: 02-21-2024 Registered Recurring [facility]-Labor[facility] Work Phone: Start: 02-15-2024 End: 02-15-[address] [facility] Work Phone: Start: 02-15-2024 End: 02-15-2024 Patient encounter procedure [facility]-Laboratory, Specimen Work Phone: Start: 01-13-2024 End: 01-13-[address] [facility] Work Phone: Start: 01-13-2024 End: 01-13-2024 Patient encounter procedure [facility] Work Phone: Start: 11-22-2023 End: 11-22-[address] [facility] Work Phone: Start: 11-22-2023 End: 11-22-2023 Patient encounter procedure [facility]-Labor[facility] Work Phone: Start: 11-11-2023 End: 11-11-[address] [facility] Work Phone: Start: 11-11-2023 End: 11-11-2023 Patient encounter procedure [facility] Work Phone: Start: 10-26-2023 End: 10-26-2023 Office outpatient visit 25 minutes Coco Shah DO Work Phone: [facility] Rheumatology Comment on above: Psoriatic arthritis mutilans (Primary Dx); Psoriatic arthritis; Primary osteoarthritis of both knees; Cervical disc disorder, unspecified, unspecified cervical region; Cervical disc disorder; Pustulosis palmaris et plantaris; Psoriasis; Seborrheic eczema; Photoaged skin; Other skin changes due to chronic exposure to nonionizing radiation; Eczema, unspecified type; Asteatosis cutis; Actinic keratosis; Personal history of other malignant neoplasm of skin; Other emt intermediate (current) drug therapy; On statin therapy; Nocturia; Methotrexate, emt intermediate, current use; Long-term current use of high risk medication other than anticoagulant; History of osteomyelitis; History of malignant neoplasm of skin; Encounter for long-term (current) use of non-steroidal anti-inflammatories Start: 09-30-2023 End: 09-30-2023 [facility] Work Phone: Start: 09-30-2023 End: 09-30-2023 Patient encounter procedure [facility] Work Phone: Start: 08-22-2023 End: 08-22-[address] [facility] Work Phone: Start: 08-22-2023 End: 08-22-[address] [facility]-Laboratory Work Phone: Start: 08-19-2023 End: 08-19-2023 Patient encounter procedure [facility] Work Phone: Start: 07-08-2023 End: 07-08-[address] [facility] Work Phone: Start: 07-08-2023 End: 07-08-2023 Patient encounter procedure [facility] Work Phone: Start: 07-04-2023 End: 07-04-2023 Office outpatient visit 15 minutes Coco Shah DO Work Phone: [facility] Rheumatology Comment on above: Psoriatic arthritis (Primary Dx); Psoriatic arthritis mutilans; Psoriasis; Pustulosis palmaris et plantaris; Abnormal renal function test; Encounter for long-term (current) use of non-steroidal anti-inflammatories; History of malignant neoplasm of skin; History of osteomyelitis; Long-term current use of high risk medication other than anticoagulant; Methotrexate, emt intermediate, current use; On statin therapy; Other fpc (current) drug therapy; Cervical disc disorder; Cervical disc disorder, unspecified, unspecified cervical region; Primary osteoarthritis of both knees; Infliximab (Remicade) long-term use Start: 06-13-2023 End: 06-13-[address] Zach Turner Work Phone: [facility] Work Phone: Start: 06-13-2023 End: 06-13-[address] Zach Turner Work Phone: [facility]-Nutritional Services Work Phone: Start: 05-27-2023 End: 05-27-[address] Zach Turner Work Phone: [facility] Work Phone: Start: 05-27-2023 End: 05-27-[address] Zach Turner Work Phone: [facility] Out Work Phone: Start: 05-23-[address] Zach Turner Work Phone: [facility] Work Phone: Start: 05-13-2023 End: 05-13-[address] Zach Turner Work Phone: [facility]-Cardiovascul ar Services Work Phone: Start: 05-10-2023 End: 05-10-[address] Zach Turner Work Phone: [facility] Work Phone: Start: 05-10-2023 End: 05-10-[address] [facility] Start: 05-04-2023 End: 05-04-[address] Zach Turner Work Phone: [facility] Work Phone: Start: 05-04-2023 End: 05-04-[address] Zach Turner Work Phone: [facility]-Laboratory, [facility] Start: 04-28-2023 ambulatory ZACH Gant [facility] Start: 04-26-2023 End: 04-26-[address] Zach Turner Work Phone: [facility] Work Phone: Start: 04-26-2023 End: 04-26-[address] Zach Turner Work Phone: [facility]-Laboratory Start: 03-29-2023 End: 03-29-[address] Zach Turner Work Phone: [facility]-Laboratory, Specimen Start: 03-25-2023 End: 03-25-[address] Zach Turner Work Phone: [facility] Work Phone: Start: 03-25-2023 End: 03-25-[address] Zach Turner Work Phone: [facility]-Medical Out Start: 03-04-2023 End: 03-04-2023 ambulatory [facility] Start: 03-03-2023 End: 03-03-2023 ambulatory [facility] Start: 03-01-2023 Non-patient / Non-visit Dr. Pranay Turner Work Phone: [facility] Start: 02-27-2023 Non-patient / Non-visit Dr. Pranay Turner Work Phone: [facility] Start: 02-26-2023 Non-patient / Non-visit Dr. Pranay Turner Work Phone: [facility] Start: 02-25-2023 End: 02-27-2023 [facility] Start: 02-22-2023 End: 02-22-[address] [facility] Work Phone: Start: 02-22-2023 End: 02-22-2023 Patient encounter procedure [facility]-Laboratory, Specimen Start: 02-11-2023 End: 02-11-[address] [facility] Work Phone: Start: 02-11-2023 End: 02-11-2023 Patient encounter procedure [facility] Start: 01-06-2023 End: 01-11-[address] [facility] Start: 12-31-2022 End: 12-31-2022 Patient encounter procedure [facility] Start: 12-15-2022 Non-patient / Non-visit [facility] Start: 12-01-2022 Non-patient / Non-visit Dr. Pranay Turner Work Phone: [facility] Start: 12-01-2022 End: 12-14-[address] Zach Turner Work Phone: [facility] Work Phone: Start: 12-01-2022 End: 12-14-[address] [facility] Start: 12-01-[address] [facility] Start: 11-25-2022 End: 11-25-[address] Zach Turner Work Phone: [facility] Work Phone: Start: 11-25-2022 End: 11-25-[address] Zach Turner Work Phone: [facility] Start: 11-24-2022 Non-patient / Non-visit Dr. Pranay Turner Work Phone: [facility] Start: 11-19-2022 End: 11-19-[address] Zach Turner Work Phone: [facility] Work Phone: Start: 11-19-2022 End: 11-19-[address] Zach Turner Work Phone: [facility] Start: 11-10-2022 Non-patient / Non-visit Dr. Pranay Turner Work Phone: [facility] Start: 11-10-2022 End: 11-13-[address] Zach Turner Work Phone: [facility] Work Phone: Start: 11-10-2022 End: 11-13-[address] [facility] [place] Start: 11-03-2022 Non-patient / Non-visit Dr. Pranay Turner Work Phone: [facility] Start: 10-27-2022 Non-patient / Non-visit Dr. Pranay Turner Work Phone: [facility] Start: 10-20-2022 Non-patient / Non-visit Dr. Pranay Turner Work Phone: [facility] Start: 10-13-2022 Non-patient / Non-visit Dr. Pranay Turner Work Phone: [facility] Start: 10-13-2022 End: 10-13-[address] Zach Turner Work Phone: [facility] Work Phone: Start: 10-13-2022 End: 10-13-[address] [facility] Start: 10-08-2022 End: 10-08-[address] Zach Turner Work Phone: [facility] Work Phone: Start: 10-08-2022 End: 10-08-[address] Zach Turner Work Phone: [facility] Start: 10-06-2022 Non-patient / Non-visit Dr. Pranay Turner Work Phone: [facility] Start: 09-29-2022 Non-patient / Non-visit Dr. Pranay Turner Work Phone: [facility] Start: 09-22-2022 Non-patient / Non-visit Dr. Pranay Turner Work Phone: [facility] Start: 09-20-2022 End: 09-20-2022 Office outpatient visit 15 minutes Coco Shah DO Work Phone: [facility] Rhe[facility] Comment on above: Psoriatic arthritis [...] other than anticoagulant; On statin therapy; Other fpc (current) drug therapy; Cervical disc disorder; Cervical disc disorder, unspecified, unspecified cervical region; Primary osteoarthritis of both knees Start: 09-08-2022 Non-patient / Non-visit Dr. Pranay Turner Work Phone: [facility] Start: 09-08-2022 End: 09-13-[address] [facility] Start: 09-02-2022 End: 09-02-[address] Zach Turner Work Phone: [facility] Start: 08-27-2022 End: 08-27-[address] [facility] Work Phone: Start: 08-27-2022 End: 08-27-2022 Patient encounter procedure [facility] Start: 08-25-2022 Non-patient / Non-visit [facility] Start: 08-25-2022 [facility] Start: 08-23-2022 End: 09-13-[address] Zach Turner Work Phone: [facility] Work Phone: Start: 08-23-2022 End: 09-13-[address] Zach Turner Work Phone: [facility] Start: 08-23-2022 Registered Recurring [facility] Start: 08-18-2022 Non-patient / Non-visit [facility] Start: 08-11-2022 Non-patient / Non-visit [facility] Start: 08-11-2022 End: 08-13-[address] [facility] Work Phone: Start: 08-11-2022 End: 08-13-[address] [facility] Start: 08-04-2022 Non-patient / Non-visit [facility] Start: 07-28-2022 Non-patient / Non-visit [facility] Start: 07-21-2022 Non-patient / Non-visit [facility] Start: 07-21-2022 [facility] Start: 07-16-2022 End: 07-16-[address] [facility] Work Phone: Start: 07-16-2022 End: 07-16-2022 Patient encounter procedure [facility] Start: 07-14-2022 Non-patient / Non-visit [facility] Start: 07-14-2022 End: 07-14-[address] [facility] Work Phone: Start: 07-14-2022 End: 07-14-2022 [facility] Start: 07-14-2022 [facility] Start: 07-07-2022 Non-patient / Non-visit [facility] Start: 06-30-2022 Non-patient / Non-visit [facility] Start: 2022 Non-patient / Non-visit [facility] Start: 06-21-2022 End: 06-21-[address] [facility] Work Phone: Start: 06-21-2022 End: 06-21-[address] [facility] Start: 06-16-2022 Non-patient / Non-visit [facility] Start: 06-16-2022 [facility] Start: 06-11-2022 End: 06-11-2022 Patient encounter procedure [facility] Start: 06-09-2022 Non-patient / Non-visit [facility] Start: 06-09-2022 End: 06-13-2022 [facility]charged [facility] Start: 06-09-2022 [facility] Start: 06-04-2022 End: 06-04-2022 Patient encounter procedure [facility] Start: 06-02-2022 Non-patient / Non-visit [facility] Start: 05-26-2022 Non-patient / Non-visit [facility] Start: 05-19-2022 End: 05-19-2022 Office outpatient visit 25 minutes Coco Shah DO Work Phone: [facility] Rheumatology Comment on above: Psoriatic arthritis (Primary Dx); Psoriatic arthritis mutilans; Unspecified open wound, unspecified foot, initial encounter; Psoriasis; Pustulosis palmaris et plantaris; Asteatosis cutis; Photoaged skin; CRP elevated; History of malignant neoplasm of skin; History of osteomyelitis; 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; Long-term current use of high risk medication other than anticoagulant; Methotrexate, fpc, current use; On statin therapy; Other emt intermediate (current) drug therapy; Personal history of other malignant neoplasm of skin; Cervical disc disorder; Cervical disc disorder, unspecified, unspecified cervical region; Primary osteoarthritis of both knees; Seborrheic eczema; Eczema, unspecified type; Encounter for long-term (current) use of non-steroidal anti-inflammatories; 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 Pranay Turner Work Phone: [facility] Start: 05-12-2022 End: 05-13-[address] Zach Turner [facility] Start: 05-05-2022 Non-patient / Non-visit Dr. Pranay Turner Work Phone: [facility] Start: 04-28-2022 Non-patient / Non-visit Dr. Pranay Turner Work Phone: [facility] Start: 04-21-2022 End: 04-21-[address] [facility] Start: 04-21-[address] [facility] Start: 04-21-2022 Non-patient / Non-visit Dr. Pranay Turner Work Phone: [facility] Start: 04-09-2022 End: 04-09-[address] [facility] Start: 02-22-2022 End: 02-22-2022 Emergency department patient visit Dr. Zach Turner Work Phone: [facility] Start: 02-12-2022 End: 02-12-[address] [facility] Start: 02-05-2022 End: 02-05-[address] Zach Turner Work Phone: [facility] Start: 02-03-2022 End: 02-03-[address] Zach Turner Work Phone: [facility] Start: 12-15-2021 End: 12-15-[address] Zach Turner Work Phone: [facility] Start: 12-04-2021 End: 12-14-[address] Zach Turner Work Phone: [facility] Start: 11-16-2021 End: 11-16-[address] Zach Turner Work Phone: [facility], Specimen Start: 10-20-[address] Keerthi Turner Work Phone: [facility] Start: 03-23-2021 End: 03-23-2021 Office outpatient visit 25 minutes Coco Shah DO Work Phone: [facility] Comment on above: Psoriatic arthritis mutilans (Primary Dx); Pustulosis palmaris et plantaris; Psoriasis; Psoriatic arthritis; Other emt intermediate (current) drug therapy; History of malignant neoplasm of skin; Long-term current use of high risk medication other than anticoagulant; Personal history of other malignant neoplasm of skin; Encounter for long-term (current) use of non-steroidal anti-inflammatories; Methotrexate, fpc, current use; 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; Osteoarthritis of both knees, unspecified osteoarthritis type; Cervical disc disorder, unspecified, unspecified cervical region; Primary osteoarthritis of both knees; Cervical disc disorder Start: 09-22-2020 End: 09-22-2020 Office outpatient visit 25 minutes Coco Shah Work Phone: [facility] Comment on above: Psoriatic arthritis mutilans (Primary Dx); Psoriatic arthritis; Psoriasis; Eczema, unspecified type; Personal history of other malignant neoplasm of skin; Other fpc (current) drug therapy; Methotrexate, emt intermediate, current use; Long-term current use of high [...] visit 25 minutes Coco Shah Work Phone: [facility] Comment on above: Psoriatic arthritis (Primary Dx); Psoriatic arthritis mutilans; Pustulosis palmaris et plantaris; Long-term current use of high risk medication other than anticoagulant; Methotrexate, emt intermediate, current use; Other emt intermediate (current) drug therapy; Cervical disc disorder; Cervical disc disorder, unspecified, unspecified cervical region; Osteoarthritis of both knees, unspecified osteoarthritis type; Primary osteoarthritis of both knees; Psoriasis; 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; Encounter for long-term (current) use of non-steroidal anti-inflammatories; Asteatosis cutis; Seborrheic eczema; Eczema, unspecified type Start: 10-08-2019 End: 10-08-2019 Office outpatient visit 25 minutes Coco Shah Work Phone: [facility] Comment on above: Psoriatic arthritis (Primary Dx); Psoriatic arthritis mutilans; Pustulosis palmaris et plantaris; Asteatosis cutis; Seborrheic eczema; Long-term current use of high risk medication other than anticoagulant; Methotrexate, fpc, current use; Other emt intermediate (current) drug therapy; Eczema, unspecified type; Cervical disc disorder; Cervical disc disorder, unspecified, unspecified cervical region; Osteoarthritis of both knees, unspecified osteoarthritis type; Primary osteoarthritis of both knees; Psoriasis; penitentiary 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; Encounter for long-term (current) use of non-steroidal anti-inflammatories Start: 06-21-2019 End: 06-21-2019 Refill Coco Shah Work Phone: [facility] Start: 01-24-2019 End: 01-24-2019 Telephone encounter Yasmin Wall [facility] Comment on above: Results Start: 01-23-2019 End: 01-23-2019 Patient encounter procedure Other Other [facility] Start: 01-22-2019 End: 01-22-2019 Patient encounter procedure Coco Shah Work Phone: [facility] Start: 01-22-2019 End: 01-22-2019 Office outpatient visit 25 minutes Coco Shah Work Phone: [facility] Comment on above: Psoriatic arthritis (Primary Dx); Psoriatic arthritis mutilans; Pustulosis palmaris et plantaris; Seborrheic eczema; Seborrheic keratosis; Vesicular palmoplantar eczema; Encounter for long-term (current) use of non-steroidal anti-inflammatories; Long-term current use of high risk medication other than anticoagulant; Methotrexate, emt intermediate, current use; Other fpc (current) drug therapy; Claudication; Osteoarthritis of both knees, unspecified osteoarthritis type; Primary osteoarthritis of both knees; Eczema, unspecified type; Psoriasis Start: 11-18-2018 End: 11-18-2018 Sonja Christian Randall Work Phone: Division of Dermatology Procedures Date Procedure Procedure Detail Performing Clinician Start: 06-28-2025 Urnls dip stick/tabl et reagent auto microscopy Dr. Zach Turner MD Work Phone: Start: 06-28-2025 Computed tomography of abdomen and pelvis with intravenous contrast Dr. Zach Turner MD Work Phone: Start: 06-28-2025 Blood count smear mc rscp w/mnl difrntl wbc count Dr. Zach Turner MD Work Phone: Start: 06-28-2025 Mean corpuscular hem oglobin concentration determination Dr. Zach Turner MD Work Phone: Start: 06-28-2025 Nucleated red blood cell count procedure Dr. Zach Turner MD Work Phone: Start: 06-28-2025 Platelet mean volume determination Dr. Zach Turner MD Work Phone: Start: 06-28-2025 Tri[address]ol lipa se measurement Dr. Zach Turner MD Work Phone: Start: 06-21-2025 Blood count smear mc rscp w/mnl difrntl wbc count Dr. Zach Turner MD Work Phone: Start: 06-21-[address] Zach Turner MD Work Phone: Start: 06-21-2025 Mean corpuscular hem oglobin concentration determination Dr. Zach Turner MD Work Phone: Start: 06-21-2025 Nucleated red blood cell count procedure Dr. Zach Turner MD Work Phone: Start: 06-21-2025 Platelet mean volume determination Dr. Zach Turner MD Work Phone: Start: 06-21-[address] se measurement Dr. Zach Turner MD Work Phone: Start: 06-21-2025 Urine microscopy: red cells Dr. Zach Turner MD Work Phone: Start: 06-21-2025 Urnls dip stick/tabl et reagent auto microscopy Dr. Zach Turner MD Work Phone: Start: 06-21-2025 Computed tomography of abdomen and pelvis with intravenous contrast Dr. Zach Turner MD Work Phone: Start: 06-21-2025 Measurement of occul t blood in stool specimen using immunoassay Dr. Zach Turner MD Work Phone: Start: 05-28-2025 Blood count smear mc rscp w/mnl difrntl wbc count Dr. Zach Turner MD Work Phone: Start: 05-28-2025 Mean corpuscular hem oglobin concentration determination Dr. Zach Turner MD Work Phone: Start: 05-28-2025 Nucleated red blood cell count procedure Dr. Zach Turner MD Work Phone: Start: 05-28-2025 Platelet mean volume determination Dr. Zach Turner MD Work Phone: Start: [...] be performed to confirm baseline values. Start: 05-14-2025 Mean corpuscular hem oglobin concentration determination Dr. Zach Turner MD Work Phone: Start: 05-14-2025 Platelet mean volume determination Dr. Zach Turner MD Work Phone: Start: 04-17-2025 Blood count smear mc rscp w/mnl difrntl wbc count Dr. Zach Turner MD Work Phone: Start: 04-17-[address] Zach Turner MD Work Phone: Start: 04-17-2025 Mean corpuscular hem oglobin concentration determination Dr. Zach Turner MD Work Phone: Start: 04-17-2025 Nucleated red blood cell count procedure Dr. Zach Turner MD Work Phone: Start: 04-17-2025 Platelet mean volume determination Dr. Zach Turner MD Work Phone: Start: 04-16-2025 Serum inorganic phos phate measurement Dr. Zach Turner MD Work Phone: Start: 04-15-2025 MRI of lower limb wi th contrast Dr. Zach Turner MD Work Phone: Start: 04-15-2025 X-ray of foot, three or more views Dr. Zach Turner MD Work Phone: Start: 04-15-[address] Pranay Turner MD Work Phone: Start: 04-15-[address] Zach Turner MD Work Phone: Start: 04-15-[address] Zach Turner MD Work Phone: Start: 04-15-2025 End: 04-15-[address] acid assay [address] Zach duval MD Work Phone: Start: 04-15-2025 Blood culture [...] MD Work Phone: Start: 02-15-2024 Investigation of tra nsfusion reaction Start: 02-15-2024 Microbial culture, routine Start: 05-10-2023 Investigation of tra nsfusion reaction Dr. Zach Turner Work Phone: Start: 05-10-2023 Microbial culture, routine Dr. Zach Turner Work Phone: Start: 03-29-2023 Investigation of tra nsfusion reaction Dr. Zach Turner Work Phone: Start: 03-29-2023 Microbial culture, routine Dr. Zach Turner Work Phone: Start: 02-25-2023 X-ray of both feet Start: 02-22-2023 Investigation of tra nsfusion reaction Dr. Zach Turner Work Phone: Start: [...] 2d w/wom-mode compl spec&colr d Tomasa Russell [employer]ER HELPER Work Phone: Start: 10-03-2017 End: 10-03-2017 Follow Up Appt 6 months Merrill Coppola MECHANICAL TECHNICAL SERVICE SPECIALIST Work Phone: Start: 10-03-2017 End: 10-03-2017 PFM Merrill Coppola MECHANICAL TECHNICAL SERVICE SPECIALIST Work Phone: Start: 05-09-2017 End: 10-11-2017 BWA Tomasa Christian MECHANICAL TECHNICAL SERVICE SPECIALIST Work Phone: Start: 05-09-2017 End: 10-11-2017 Follow Up Appt 6 months Tomasa guzman [employer]ER HELPER Work Phone: Start: 11-29-2016 End: 11-29-2016 Follow Up Appt 6 months Winnie treviño PA-C Work Phone: Start: 11-29-2016 End: 11-29-2016 PF Winnie Aguirre PA-C Work Phone: Start: 05-31-2016 End: 05-31-2016 Follow Up Appt 6 months Miguelangel Walton MD Start: 05-31-2016 End: 05-31-2016 [facility] Miguelangel Walton MD Start: 04-06-2016 End: 04-08-2016 [...] 09-22-2015 End: 11-20-2015 Erythrocyte sedimentation rate Alyx Branden Blue MD Start: 09-22-2015 End: 10-17-2015 Radex foot complete minimum 3 views Alyx Blue MD Start: 09-22-2015 End: 09-22-2015 Smoking cessation education Alyx Otero Sig george BENITEZ Start: 08-25-2015 End: 08-25-2015 *CBC with Differential Alyx Blue MD Start: 08-25-2015 End: 08-25-2015 *Renal Panel Alyx Blue MD Start: 08-25-2015 End: 08-26-2015 Documentation of current medications Alyx Blue MD Start: 08-25-2015 End: 08-25-2015 Erythrocyte sedimentation rate Alyxfrancie Blue MD Start: 08-14-2015 End: 08-25-2015 Bacteria [...] Miguelangel Walton MD Start: 01-14-2014 End: 01-14-2014 MM Miguelangel Walton MD Start: 12-14-2013 End: 11-17-2015 [...] PA-C Work Phone: Start: 06-11-2013 End: 01-14-2014 [facility] Winnie Aguirre PA-C Work Phone: Start: 11-24-2012 [...] Dr. Zach Turner Work Phone: Investigation of tra nsfusion reaction Dr. Zach Turner Work Phone: Investigation of tra nsfusion reaction Dr. Zach Turner Work Phone: Investigation of tra nsfusion reaction Dr. Zach Turner Work Phone: Investigation of tra nsfusion reaction Investigation of tra nsfusion reaction Dr. Zach Turner Work Phone: Microbial culture, routine Microbial culture, routine D sheri Turner Work Phone: Microbial culture, routine D sheri Turner Work Phone: Microbial culture, routine Microbial culture, routine D sheri Turner Work Phone: Plan of Treatment Date Care Activity Detail Author Start: 05-22-2026 Diabetes: Urine Albumin-Creatinine Ratio for Kidney Health Diabetes: Urine Albumin-Creatinine Ratio for Kidney Health [facility] Start: 11-28-2025 End: 11-28-2025 Patient encounter procedure 11/28/2025 11:30 AM EST Office Visit [facility] [address] [place] [address] Christina Cartagena MD [address] [place] [address] [facility] 2 Start: 08-16-2025 End: 08-16-2025 Patient encounter procedure 08/16/2025 1:30 PM EDT Office Visit [facility] [place] [address] [place] [id number] Georgina Moore MD [address] [place] [address] [facility] [place] Start: 08-05-2025 End: 08-05-2025 Patient encounter procedure 08/05/2025 12:00 PM EDT Office Visit [facility] [address] [place] [address] Pablo Wilson, Coco Carter, [address] [address] [facility] Start: 07-15-2025 Influenza vaccination INFLUENZA VACCINE (#1) [facility] Start: 06-29-2025 [facility] Start: 06-29-2025 Thyroid stimulating hormone measurement [facility] Start: 06-28-2025 Application of intermittent pneumatic compression device [facility] Start: 06-28-2025 Following clinical pathway protocol [facility] Start: 06-28-[address] [facility] Start: 06-28-2025 Assessment of risk of venous thromboembolism [facility] Start: 06-28-2025 Care regimes management [facility] Start: 06-28-2025 Documentation procedure [facility] Start: 06-28-[address] [facility] Start: 06-28-2025 Insertion of catheter into peripheral vein [facility] Start: 06-28-2025 Measuring intake and output [facility] Start: 06-28-[address] [facility] Start: 06-28-[address] [facility] Start: 06-28-2025 Providing care according to standard [facility] Start: 06-28-2025 Provision of activity privileges [facility] Start: 06-28-2025 Referral to gastroenterology service [facility] Start: 06-28-2025 Referral to occupational therapist [facility] Start: 06-28-[address] [facility] Start: 06-28-2025 End: 06-28-2025 [facility] Start: 06-28-2025 Serum inorganic phosphate measurement [facility] Start: 06-28-[address] [facility] Start: 06-28-[address] [facility] Start: 06-28-[address] [facility] Start: 06-21-2025 [facility] Start: 06-07-2025 Chemotherapy admn iv infusion tq ea hr [facility] Start: 06-07-2025 Chemotx admn iv nfs tq up 1 hr 11/14 sbst/drug [facility] Start: 05-30-2025 End: 05-30-2026 Complete blood count with white cell differential, automated CBC, EDIF, PLATELET Lab Routine Stage 3b chronic kidney disease Expected: 05/30/2025, Expires: 05/30/2026 [facility] Comment on above: Expected: 05/30/2025, Expires: Start: 05-30-2025 End: 05-30-2026 DANELLE AND PE, SERUM DANELLE AND PE, SERUM Lab Routine Stage 3b chronic kidney disease Expected: 05/30/2025, Expires: 05/30/2026 [facility] Comment on above: Expected: 05/30/2025, Expires: Start: 05-30-2025 End: 05-30-2026 IMMUNOGLOBULIN FREE CHAINS IMMUNOGLOBULIN FREE CHAINS Lab Routine Stage 3b chronic kidney disease Expected: 05/30/2025, Expires: 05/30/2026 [facility] Comment on above: Expected: 05/30/2025, Expires: Start: 05-30-2025 End: 05-30-2026 Magnesium [Mass/volume] in Serum or Plasma MAGNESIUM Lab Routine Stage 3b chronic kidney disease Expected: 05/30/2025, Expires: 05/30/2026 [facility] Comment on above: Expected: 05/30/2025, Expires: Start: 05-30-2025 End: 05-30-2026 MICROALBUMIN/CREATININE RATIO MICROALBUMIN/CREATININE RATIO Fluids Routine Stage 3b chronic kidney disease Expected: 05/30/2025, Expires: 05/30/2026 [facility] Comment on above: Expected: 05/30/2025, Expires: Start: 05-30-2025 End: 05-30-2026 RENAL FUNCTION PANEL RENAL FUNCTION PANEL Lab Routine Stage 3b chronic kidney disease Expected: 05/30/2025, Expires: 05/30/2026 [facility] Comment on above: Expected: 05/30/2025, Expires: Start: 05-30-2025 End: 05-30-2026 Sodium [Moles/volume] in Urine SODIUM, RANDOM URINE Fluids Routine Stage 3b chronic kidney disease Expected: 05/30/2025, Expires: 05/30/2026 [facility] Comment on above: Expected: 05/30/2025, Expires: Start: 05-30-2025 End: 05-30-2026 Urinalysis, reagent strip without microscopy URINALYSIS, MACRO Fluids Routine Stage 3b chronic kidney disease Expected: 05/30/2025, Expires: 05/30/2026 [facility] Comment on above: Expected: 05/30/2025, Expires: Start: 05-30-2025 End: 05-30-2026 URINE PROTEIN/CREA RATIO, RANDOM URINE PROTEIN/CREA RATIO, RANDOM Fluids Routine Stage 3b chronic kidney disease Expected: 05/30/2025, Expires: 05/30/2026 [facility] Comment on above: Expected: 05/30/2025, Expires: Start: 05-30-2025 End: 05-30-2025 Patient encounter procedure 05/30/2025 11:30 AM EDT Office Visit [facility] Nephrology [address] [place] [address] Christina Cartagena MD [address] [place] [address] [facility] Neph[facility] 2 Start: 04-17-[address] [facility] Start: 04-17-2025 Referral to occupational therapist [facility] Start: 04-17-[address] [facility] Start: 04-16-2025 [facility] Start: 04-15-2025 Source specific culture [facility] Start: 04-15-2025 [facility] Start: 04-15-[address] [facility] Start: 04-15-2025 Assessment of risk of venous thromboembolism [facility] Start: 04-15-2025 Care regimes management [facility] Start: 04-15-[address] [facility] Start: 04-15-[address] [facility] Start: 04-15-2025 Elevation of affected extremity [facility] Start: 04-15-[address] [facility] Start: 04-15-[address] [facility] Start: 04-15-2025 Insertion of catheter into peripheral vein [facility] Start: 04-15-2025 Measuring intake and output [facility] Start: 04-15-[address] [facility] Start: 04-15-[address] [facility] Start: 04-15-2025 Providing care according to standard [facility] Start: 04-15-2025 Referral to hog sticker [facility] Start: 04-15-[address] [facility] Start: 04-15-2025 End: 04-15-2025 [facility] Start: 04-15-2025 Following clinical pathway protocol [facility] Start: 04-15-20[address] MR [address] extremity [facility] Start: 04-15-2025 MRI of lower limb with contrast Lower Ext No Joint W/WO Cont [facility] Start: 04-15-2025 Bacterial nucleic acid assay [facility] Start: 04-15-[address] [facility] Start: 04-15-2025 Hospital admission, emergency, from emergency room, medical nature [facility] Start: 04-15-[address] [facility] Start: 04-15-2025 [facility] Start: 04-15-2025 Anaerobic microbial culture Anaerobic Culture [facility] Start: 04-15-2025 Bacteria identified in Blood by Culture Blood Culture [facility] Start: 04-15-2025 Microbial culture, routine Wound Culture [facility] Start: 04-15-2025 Skin and Soft Tissue MRSA/MSSA (PCR Skin and Soft Tissue MRSA/MSSA (PCR [facility] Start: 04-15-2025 Patient referral to dietitian [facility] Start: 02-28-2025 End: 02-28-2026 US Kidney US RENAL RETROPERITONEAL Imaging Routine Stage 3b chronic kidney disease Expected: 02/28/2025, Expires: 02/28/2026 [facility] Comment on above: Expected: 02/28/2025, Expires: Start: 02-21-2025 Chemotherapy admn iv infusion tq ea hr CHEMO IV INFUSION ADDL HR [facility] Start: 02-21-2025 Chemotx admn iv nfs tq up 1 hr 11/14 sbst/drug CHEMO IV INFUSION [address] [facility] Start: 02-21-2025 Therapeutic injection iv push each new drug TX/PRO/DX INJ NEW DRUG ADDON [facility] Start: 02-13-2025 End: 02-13-2025 Patient encounter procedure 02/13/2025 11:30 AM EDT Office Visit [facility] [address] [facility] [address] [place] [phone] Georgina Mooer MD [address] [facility] [place] [address] 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 Infliximab (Remicade) long-term use History of osteomyelitis History of malignant neoplasm of skin Difficulty in urination Current use of fpc anticoagulation Abnormal renal function test Psoriatic arthritis mutilans Expected: 02/12/2025 (Approximate), Expires: 01/25/2026 [facility] Comment on above: Expected: 02/12/2025 (Approximate), Expi res: 01/25/2026 Start: 12-30-2024 DTaP/Tdap/Td Vaccines (2 - Td or Tdap) DTaP/Tdap/Td Vaccines (2 - Td or Tdap) [facility] Start: 12-30-2024 Tetanus vaccination TETANUS [facility] Start: 12-25-2024 Chemotherapy admn iv infusion tq ea hr CHEMO IV INFUSION ADDL HR [facility] Start: 12-25-2024 Chemotx admn iv nfs tq up 1 hr 11/14 sbst/drug CHEMO IV INFUSION [address] [facility] Start: 11-19-2024 End: 11-19-2024 Patient encounter procedure 11/19/2024 1:00 PM EST Office Visit [facility] Rheumatology [address] [place] [phone] Pablo Wilson, Coco , [address] [address] [facility] Rhe[facility] Start: 11-09-2024 Therapeutic injection iv push each new drug TX/PRO/DX INJ NEW DRUG [facility] Start: 10-31-2024 End: 10-31-2024 Patient encounter procedure [facility] Start: 08-28-2024 End: 08-28-2025 Decision Dx SCC - Misc Path Test [facility] [employer] Work Phone: Comment on above: Expected: 08/28/2024 (Approximate), Expi res: 08/28/2025 Start: 07-15-2024 COVID-19 Vaccine () COVID-19 Vaccine ( season) [facility] Start: 07-15-2024 COVID-19 Vaccine () COVID-19 Vaccine () [facility] Start: 07-15-2024 Influenza vaccination Influenza Vaccine (#1) [facility] Start: 05-07-2024 End: 05-07-2024 Patient encounter procedure 05/07/2024 12:00 PM EDT Office Visit [facility] Rheumatology [address] [place] [phone] Coco Shah Jr., [address] [place] [phone] [facility] Start: 01-13-2024 Chemotherapy admn iv infusion tq ea hr CHEMO IV INFUSION ADDL [facility] Start: 01-13-2024 Chemotx admn iv nfs tq up 1 hr 1/ sbst/drug CHEMO IV INFUSION [address] [facility] Start: 01-13-2024 Therapeutic injection iv push each new drug TX/PRO/DX INJ NEW DRUG [facility] Start: 11-11-2023 Chemotherapy admn [facility]q ea [facility] Start: 11-11-2023 Chemotx admn iv nfs tq up 1 hr 1/1st sbst/drug CHEMO IV INFUSION [address] [facility] Start: 11-11-2023 Therapeutic injection iv push each new drug TX/PRO/DX INJ NEW DRUG [facility] Start: 10-26-2023 End: 10-26-2023 Patient encounter procedure 10/26/2023 2:30 PM EST Office Visit [facility] Rheumatology [address] [place] [phone] Coco Shah Jr., DO [address] [place] [phone] [facility] Rhe[facility] Start: 09-30-2023 Chemotherapy admn iv infusion tq ea hr [facility] Start: 09-30-2023 Chemotx admn iv nfs tq up 1 hr 1/1st sbst/drug CHEMO IV INFUSION [address] [facility] Start: 09-30-2023 Therapeutic injection iv push each new drug TX/PRO/DX INJ NEW DRUG [facility] Start: 08-19-2023 Iv infusion therapy prophylaxis/dx ea hour THER/PROPH/DIAG IV INF [facility] Start: 08-19-2023 Iv infusion therapy/prophylaxis /dx 1st to 1 hr THER/PROPH/DIAG IV INF [facility] Start: 07-15-2023 COVID-19 VACCINE ( season) COVID-19 VACCINE ( season) [facility] Start: 07-15-2023 Influenza vaccination INFLUENZA VACCINE (#1) [facility] Start: 07-08-2023 Chemotherapy admn iv infusion tq ea hr CHEMO IV INFUSION [facility] Start: 07-08-2023 Chemotx admn iv nfs tq up 1 hr 1/1st sbst/drug CHEMO IV INFUSION [address] [facility] Start: 07-08-2023 Therapeutic injection iv push each new drug TX/PRO/DX INJ NEW DRUG [facility] Start: 05-27-2023 Chemotherapy admn iv infusion tq ea hr CHEMO IV INFUSION [facility] Start: 05-27-2023 Chemotx admn iv nfs tq up 1 hr 1/1st sbst/drug CHEMO IV INFUSION [address] [facility] Start: 05-27-2023 Therapeutic injection iv push each new drug TX/PRO/DX INJ NEW DRUG [facility] Start: 03-28-2023 End: 03-28-2023 Patient encounter procedure 03/28/2023 Office Visit Rheumatology Pablo Wilson, Coco Carter, DO [address] [place] [phone] [facility] Start: 03-25-2023 Chemotherapy admn iv infusion tq ea hr CHEMO IV INFUSION ADDL HR [facility] Start: 03-25-2023 Chemotx admn iv nfs tq up 1 hr 11/14 sbst/drug CHEMO IV INFUSION [address] [facility] Start: 03-25-2023 Therapeutic injection iv push each new drug TX/PRO/DX INJ NEW DRUG [facility] Start: 03-01-2023 Colonoscopy COLORECTAL CANCER SCREENING DISCUSSION [facility] Start: 03-01-2023 Screening for malignant neoplasm of colon COLORECTAL CANCER SCREENING DISCUSSION [facility] Start: 02-27-[address] [facility] Start: 02-26-2023 Care planning and problem solving actions [facility] Start: 02-25-2023 [address]erral to hog sticker [facility] Start: 02-25-2023 Care planning and problem solving actions [facility] Start: 02-25-2023 Assessment of risk of venous thromboembolism [facility] Start: 02-25-2023 Catheterization of vein [facility] Start: 02-25-2023 Insertion of catheter into peripheral vein [facility] Start: 02-25-2023 Providing care according to standard [facility] Start: 02-25-2023 Referral to occupational therapist [facility] Start: 02-25-[address] [facility] Start: 02-25-2023 [facility] Start: 02-25-2023 Following clinical pathway protocol [facility] Start: 02-25-[address] [facility] Start: 02-25-2023 [facility] Start: 02-25-2023 Patient referral to dietitian [facility] Start: 10-08-2022 Therapeutic injection iv push each new drug TX/PRO/DX INJ NEW DRUG [facility] Start: 09-20-2022 End: 09-20-2022 Patient encounter procedure 09/20/2022 Office Visit Rheumatology Pablo Wilson, Coco Carter, [address] [place] [phone] [facility] Start: 07-16-2022 Chemotherapy admn iv infusion tq ea hr CHEMO IV INFUSION ADDL HR [facility] Work Phone: Start: 07-15-2022 Influenza vaccination INFLUENZA VACCINE (#1) [facility] Start: 07-07-2022 [facility] Work Phone: Start: 06-09-2022 X-ray of both feet Foot min [address] [facility] Work Phone: Start: 06-09-2022 XR Foot GE [address] [facility] Work Phone: Start: 06-09-2022 [facility] Work Phone: Start: 06-04-2022 Chemotherapy admn iv infusion tq ea hr CHEMO IV INFUSION ADDL [facility] Work Phone: Start: 05-12-2022 [facility] Work Phone: Start: 04-09-2022 Iv infusion therapy prophylaxis/dx ea hour THER/PROPH/DIAG IV INF [facility] Work Phone: Start: 04-09-2022 Iv infusion therapy/prophylaxis /dx 1st to 1 hr THER/PROPH/DIAG IV INF [facility] Work Phone: Start: 02-12-2022 Iv infusion therapy prophylaxis/dx ea hour THER/PROPH/DIAG IV INF [facility] Work Phone: Start: 02-12-2022 Iv infusion therapy/prophylaxis /dx 1st to 1 hr THER/PROPH/DIAG IV INF [facility] Work Phone: Start: 02-12-2022 Therapeutic injection iv push each new drug TX/PRO/DX INJ NEW DRUG [facility] Work Phone: Start: 01-23-2022 COVID-19 VACCINE (4 - Booster for Pfizer series) COVID-19 VACCINE (4 - Booster for Pfizer series) [facility] Start: 12-15-2021 Chemotherapy admn iv infusion tq ea hr CHEMO IV INFUSION ADDL [facility] Work Phone: Start: 12-15-2021 Chemotx admn iv nfs tq up 1 hr 1/1st sbst/drug CHEMO IV INFUSION [address] [facility] Work Phone: Start: 11-20-2021 COVID-19 VACCINE (4 - Booster for Pfizer series) COVID-19 VACCINE (4 - Booster for Pfizer series) [facility] Start: 11-20-2021 COVID-19 VACCINE (4 - Pfizer series) COVID-19 VACCINE (4 - Pfizer series) [facility] Start: 07-27-2021 End: 07-27-2021 Patient encounter procedure 07/27/2021 Office Visit Rheumatology Coco Shah Jr., DO [address] [place] [phone] [facility] Start: 07-15-2021 Influenza vaccination INFLUENZA VACCINE (Season Ended) [facility] Start: 03-23-2021 End: 03-23-2021 Office Visit 03/23/2021 Office Visit Rheumatology Coco Shah Jr., DO [address] [place] [phone] [facility] Start: 09-22-2020 End: 09-22-2020 Office Visit 09/22/2020 Office Visit Rheumatology Coco Shah Jr., DO [address] [place] [phone] [facility] Start: 07-15-2020 Influenza vaccination INFLUENZA VACCINE (#1) [facility] Start: 02-20-2020 End: 02-20-2020 Office Visit 02/20/2020 Office Visit Rheumatology Coco Shah Jr., DO [address] [place] [phone] [facility] Start: 09-25-2019 Potassium molar conc POTASSIUM [facility] Work Phone: Start: 07-23-2019 End: 07-23-2019 Office Visit [facility] Start: 07-15-2019 Influenza vaccination INFLUENZA VACCINE (#1) [facility] Start: 01-22-2019 End: 01-22-2019 Ambulatory 01/22/2019 [facility]oco Carter, DO [address] [place] [phone] [facility] Start: 07-15-2018 Influenza vaccination INFLUENZA VACCINE (#1) [facility] Work Phone: Start: 07-03-2018 End: 07-03-2018 Appointment Appointment [facility] Work Phone: Start: 2018 RSV Immunization for Adults (1 - 1-dose 75+ series) RSV Immunization for Adults (1 - 1-dose 75+ series) [facility] [employer] Start: 2018 RSV VACCINE (1 - 1-dose 75+ series) RSV VACCINE (1 - 1-dose 75+ series) [employer] Start: 11-02-2017 End: 11-02-2017 Appointment Appointment [facility] Work Phone: Start: 10-03-2017 End: 10-11-2017 Echo tthrc r-t 2d w/wom-mode compl spec&colr d Echo Complete with Color Flow [facility] Work Phone: Start: 10-03-2017 End: 10-03-2017 Follow Up Appt 6 months Follow Up Appt 6 months [facility] Work Phone: Start: 10-03-2017 End: 10-03-2017 PFM PFM [facility] Work Phone: Start: 05-09-2017 End: 10-11-2017 BWA BWA [facility] Work Phone: Start: 05-09-2017 End: 10-11-2017 Follow Up Appt 6 months Follow Up Appt 6 months [facility] Work Phone: Start: 11-29-2016 End: 11-29-2016 Follow Up Appt 6 months Follow Up Appt 6 months [facility] Work Phone: Start: 11-29-2016 End: 11-29-2016 PFM PFM [facility] Work Phone: Start: 11-16-2016 End: 11-16-2016 CSM [facility] Work Phone: Start: 11-16-2016 End: 11-16-2016 Follow Up Appt 6 months Follow Up Appt 6 months [employer] Work Phone: Start: 11-16-2016 End: 11-16-2016 Pulmonary Function Test - complete Pulmonary Function Test - complete [facility] Work Phone: Start: 11-16-2016 End: 11-16-2016 Pulmonary stress test/simple Pulmonary stress testing; simple (eg, 6-minute walk) [facility] Work Phone: Start: 05-31-2016 End: 05-31-2016 Follow Up Appt 6 months Follow Up Appt 6 months [employer] Work Phone: Start: 05-31-2016 End: 05-31-2016 MMM MMM [facility] Work Phone: Start: 05-20-2016 End: 11-21-2015 *Hepatic Function Panel *Hepatic Function Panel [employer] Work Phone: Start: 05-20-2016 End: 11-21-2015 Lipid panel [AGGREGATE] *Lipid Profile CC PCP [facility] Work Phone: Start: 05-19-2016 End: 05-19-2016 Follow Up Appt 6 months Follow Up Appt 6 months [employer] Work Phone: Start: 04-19-2016 End: 04-19-2016 Debridement subcutaneous tissue 20 sq cm/< Debridement, subcutaneous tissue first 20 sq cm or less [facility] Work Phone: Start: 04-09-2016 End: 04-09-2016 Radex foot complete minimum 3 views X-Ray, Foot [facility] Work Phone: Start: 04-06-2016 End: 04-06-2016 *MRSAW, Staph A, DNA, Amp Probe, Wound *MRSAW, Staph A, DNA, Amp Probe, Wound [facility] Work Phone: Start: 01-23-2016 End: 01-24-2016 Erythrocyte sedimentation rate *Sedimentation Rate (ESR) [facility] Work Phone: Start: 01-23-2016 End: 01-24-2016 Hemoglobin A1c/Hemoglobin.total mass fraction (Bld) *HgA1C [facility] Work Phone: Start: 01-23-2016 End: 04-06-2016 Radex foot complete minimum 3 views X-Ray, Foot [facility] Work Phone: Start: 11-17-2015 End: 11-20-2015 *Hepatic Function Panel *Hepatic Function Panel [employer] Work Phone: Start: 11-17-2015 End: 11-17-2015 Ecg routine ecg w/least 12 lds w/i&r EKG (In office) [facility] Phone: Start: 11-17-2015 End: 11-17-2015 Follow Up Appt 6 months Follow Up Appt 6 months [employer] Work Phone: Start: 11-17-2015 End: 11-20-2015 Lipid panel [AGGREGATE] *Lipid Profile CC PCP [facility] Work Phone: Start: 11-17-2015 End: 11-17-2015 PFM PFM [facility] Phone: Start: 11-12-2015 End: 11-12-2015 Follow Up Appt 6 months Follow Up Appt 6 months [facility] Phone: Start: 09-22-2015 End: 10-17-2015 Erythrocyte sedimentation rate *Sedimentation Rate (ESR) [facility] Work Phone: Start: 09-22-2015 End: 10-17-2015 Radex foot complete minimum 3 views X-Ray, Foot [facility] Work Phone: Start: 08-25-2015 End: 08-25-2015 *CBC with Differential *CBC with Differential [facility] Work Phone: Start: 08-25-2015 End: 08-25-2015 *Renal Panel *Renal Panel [employer] [email or web address] Work Phone: Start: 08-25-2015 End: 08-25-2015 Erythrocyte sedimentation rate *Sedimentation Rate (ESR) [email or web address] Work Phone: Start: 08-14-2015 End: 08-25-2015 Bacterica wound culture *Culture and Sensitivity, wound [email or web address] Work Phone: Start: 07-31-2015 End: 07-31-2015 Chest x-ray X-Ray, Chest, PA & Lateral [facility] [email or web address] Work Phone: Start: 07-31-2015 End: 07-31-2015 Follow Up Appt 3 months Follow Up Appt 3 months [facility] Work Phone: Start: 07-31-2015 End: 07-31-2015 Pulmonary Function Test - complete Pulmonary Function Test - complete [email or web address] Work Phone: Start: 07-31-2015 End: 07-31-2015 Pulmonary stress test/simple Pulmonary stress testing; simple (eg, 6-minute walk) [employer] [email or web address] Work Phone: Start: 05-30-2015 End: 11-17-2015 Follow Up Appt 6 months Follow Up Appt 6 months [facility] Work Phone: Start: 05-30-2015 End: 11-17-2015 MMM MMM [facility] Work Phone: Start: 07-22-2014 End: 07-22-2014 Follow Up Appt 6 months Follow Up Appt 6 months [facility] Work Phone: Start: 07-22-2014 End: 07-22-2014 PFM PFM [facility] Work Phone: Start: 01-14-2014 End: 01-14-2014 Follow Up Appt 6 months Follow Up Appt 6 months [facility] Work Phone: Start: 01-14-2014 End: 01-14-2014 MMM MMM [facility] Work Phone: Start: 12-14-2013 End: 11-17-2015 *Hepatic Function Panel *Hepatic Function Panel [facility] Work Phone: Start: 12-14-2013 End: 11-17-2015 Lipid panel [AGGREGATE] *Lipid Profile CC PCP [facility] Work Phone: Start: 06-11-2013 End: 01-14-2014 Ecg routine ecg w/least 12 lds w/i&r EKG (In office) [facility] Work Phone: Start: 06-11-2013 End: 01-14-2014 Follow Up Appt 6 months Follow Up Appt 6 months [facility] Work Phone: Start: 06-11-2013 End: 01-14-2014 PFM PFM [facility] Work Phone: Start: 11-24-2012 End: 05-15-2013 Follow Up Appt 6 months Follow Up Appt 6 months [facility] Work Phone: Start: 01-17-2012 End: 05-15-2013 *Hepatic Function Panel *Hepatic Function Panel [facility] Work Phone: Start: 01-17-2012 End: 01-17-2012 Ecg routine ecg w/least 12 lds w/i&r EKG (In office) [facility] Work Phone: Start: 01-17-2012 End: 01-17-2012 Follow Up Appt 6 months Follow Up Appt 6 months [facility] Work Phone: Start: 01-17-2012 End: 05-15-2013 Lipid panel [AGGREGATE] *Lipid Profile [facility] Work Phone: Start: 01-28-2010 Hepatitis B vaccination HEP B VACCINE (3 of 3 - 19+ 3-dose series) [facility] Start: 01-28-2010 Hepatitis B Vaccines (3 of 3 - 19+ 3-dose series) Hepatitis B Vaccines (3 of 3 - 19+ 3-dose series) [facility] [employer] Start: 2008 Abdominal aortic aneurysm screening ABDOMINAL AORTIC ANEURYSM HIGH RISK SCREEN [facility] Work Phone: Start: 2008 Pneumococcal vaccination PNEUMOCOCCAL VACCINE SERIES (1 of 2 - PCV13) [facility] Work Phone: Start: 2003 RSV Immunization aged 60 or older (1 - 1-dose 60+ series) RSV Immunization aged 60 or older (1 - 1-dose 60+ series) [facility] Start: 1993 Colonoscopy [facility] Start: 1993 Prostate specific antigen measurement PROSTATE CANCER SCREENING DISCUSSION [facility] Work Phone: Start: 1993 Protein mass conc COLON CANCER SCREENING DISCUSSION [facility] Work Phone: Start: 1993 Zoster vaccine hzv live for subcutaneous use ZOSTER (SHINGLES) VACCINE (1 of 2) [facility] Start: 1993 Zoster Vaccines (1 of 2) Zoster Vaccines (1 of 2) [facility] Start: 1983 Fasting lipid profile LIPID SCREENING [facility] Work Phone: Start: 1962 Third diphtheria, tetanus and acellular pertussis (DTaP) vaccination TDAP (ADULT) [facility] Start: 1961 Diabetes: Estimated Glomerular Filtration Rate for Kidney Health Diabetes: Estimated Glomerular Filtration Rate for Kidney Health [facility] Start: 1961 Diabetes: Urine Albumin-Creatinine Ratio for Kidney Health Diabetes: Urine Albumin-Creatinine Ratio for Kidney Health [facility] Start: 1961 Tetanus vaccination TETANUS [facility] Start: 1959 COVID-19 VACCINE (1) COVID-19 VACCINE (1) [facility] Start: 1955 Depression Screening Depression Screening [facility] Start: 1949 Pneumococcal vaccination PNEUMOCOCCAL VACCINE SERIES (1 - PCV) [facility] Start: 1943 Examination of skin Derm Melanoma Skin Check [facility] Start: 1943 Hepatitis C antibody, confirmatory test HEPATITIS C VIRUS SCREENING [facility] Start: 1945 Hepatitis C screening HEPATITIS C VIRUS SCREENING [employer] Start: 1945 Medicare Annual Wellness (AWV) Medicare Annual Wellness (AWV) [facility] Start: 1945 Potassium [Moles/Vol] POTASSIUM [facility] End: 05-19-2023 Alanine aminotransferase [Enzymatic activity/volume] in Serum or Plasma ALT Lab Routine Psoriatic arthritis Psoriatic arthritis mutilans Unspecified open wound, unspecified foot, initial encounter 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 Photoaged skin CRP elevated History of malignant neoplasm of skin History of osteomyelitis 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 Long-term current use of high risk medication other than anticoagulant Methotrexate, fpc, current use On statin therapy Other fpc (current) drug therapy Personal history of other malignant neoplasm of skin Cervical disc disorder Cervical disc disorder, unspecified, unspecified cervical region Primary osteoarthritis of both knees Seborrheic eczema Eczema, unspecified type Encounter for long-term (current) use of non-steroidal anti-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 Osteoarthritis of both knees, unspecified osteoarthritis type Every 8 Weeks for 6 Occurrences starting 05/19/2022 until 05/19/2023 [employer] Comment on above: Every 8 Weeks for [...] other than anticoagulant On statin therapy Other emt intermediate (current) drug therapy Cervical disc disorder Cervical disc disorder, unspecified, unspecified cervical region Primary osteoarthritis of both knees Every 12 Weeks for 4 Occurrences starting 09/20/2022 until 09/20/2023 [employer] Comment on above: Every 12 Weeks for [...] high risk medication other than anticoagulant Methotrexate, fpc, current use On statin therapy Other emt intermediate (current) drug therapy Cervical disc disorder Cervical disc disorder, unspecified, unspecified cervical region Primary osteoarthritis of both knees Infliximab (Remicade) long-term use Every 12 Weeks for 4 Occurrences starting 07/04/2023 until 07/04/2024 [facility] Comment on above: Every 12 Weeks [...] of other malignant neoplasm of skin Other emt intermediate (current) drug therapy On statin therapy Nocturia Methotrexate, fpc, current use Long-term current use of high risk medication other than anticoagulant History of osteomyelitis History of malignant neoplasm of skin Encounter for long-term (current) use of non-steroidal anti-inflammatories Every 12 Weeks for 4 Occurrences starting 10/26/2023 until 10/26/2024 [facility] Comment on above: Every 12 Weeks [...] other than anticoagulant On statin therapy Other emt intermediate (current) drug therapy Personal history of other malignant neoplasm of skin Cervical disc disorder Cervical disc disorder, unspecified, unspecified cervical region Primary osteoarthritis of both knees 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 Methotrexate, fpc, current use Seborrheic eczema Eczema, unspecified type penitentiary 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 Osteoarthritis of both knees, unspecified osteoarthritis type Every 12 Weeks for 4 Occurrences starting 05/07/2024 until 05/07/2025 [facility] Comment on above: Every 12 Weeks [...] Asteatosis cutis Actinic keratosis Other proteinuria Other fpc (current) drug therapy On statin therapy Methotrexate, emt intermediate, current use Nocturia Long-term current use of high risk medication other than anticoagulant penitentiary use of drug Infliximab (Remicade) long-term use History of osteomyelitis History of malignant neoplasm of skin Difficulty in urination Current use of fpc anticoagulation Abnormal renal function test 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 Occurrences starting 01/25/2025 until 01/25/2026 [facility] Comment on above: Every 12 Weeks for 4 Occurrences startin g 01/25/2025 until 01/25/2026 Alanine aminotransfe rase [Enzymatic activity/volume] in Serum or Plasma [facility] Albumin [Mass/volume ] in Serum or Plasma [facility] Alkaline phosphatase [Enzymatic activity/volume] in Serum or Plasma 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 Asteatosis cutis Seborrheic eczema Long-term current use of high risk medication other than anticoagulant Methotrexate, emt intermediate, current use Other fpc (current) drug therapy Eczema, unspecified type Cervical disc disorder Cervical disc disorder, unspecified, unspecified cervical region Osteoarthritis of both knees, unspecified osteoarthritis type Primary osteoarthritis of both knees Psoriasis penitentiary 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 Encounter for long-term (current) use of non-steroidal anti-inflammatories 6 Occurrences starting 10/08/2019 until 10/08/2020, 1 completed [facility] Comment on above: 6 Occurrences starting 10/08/2019 until 10/08/2020, 1 completed End: 09-22-2021 ALT [Catalytic activity/Vol] ALT Lab Routine Psoriatic arthritis mutilans Psoriatic arthritis Psoriasis Eczema, unspecified type Personal history of other malignant neoplasm of skin Other emt intermediate (current) drug therapy Methotrexate, fpc, current use Long-term current use of high risk medication other than anticoagulant History of malignant neoplasm of skin Encounter for long-term (current) use of non-steroidal anti-inflammatories Primary osteoarthritis of both knees Osteoarthritis of both knees, unspecified osteoarthritis type Cervical disc disorder, unspecified, unspecified cervical region Cervical disc disorder Pustulosis palmaris et plantaris 6 Occurrences starting 11/04/2020 until 09/22/2021 [facility] Comment on above: 6 Occurrences starting 11/04/2020 until 09/22/2021 [employer] [facility] Anaerobic Culture [facility] Work Phone: Anaerobic microbial culture Anaerobic Culture [facility] Work Phone: Anion gap in Serum o r Plasma [facility] Anion gap in Serum o r Plasma [facility] Anion gap in Serum o r Plasma [facility] Anion gap in Serum o r Plasma [facility] End: 05-19-2023 Aspartate aminotransferase [Enzymatic activity/volume] in Serum or Plasma AST Lab Routine Psoriatic arthritis Psoriatic arthritis mutilans Unspecified open wound, unspecified foot, initial encounter 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 Photoaged skin CRP elevated History of malignant neoplasm of skin History of osteomyelitis penitentiary (current) use of antibiotics Long-term current use of high risk medication other than anticoagulant Methotrexate, fpc, current use On statin therapy Other fpc (current) drug therapy Personal history of other malignant neoplasm of skin Cervical disc disorder Cervical disc disorder, unspecified, unspecified cervical region Primary osteoarthritis of both knees Seborrheic eczema Eczema, unspecified type Encounter for long-term (current) use of non-steroidal anti-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 Osteoarthritis of both knees, unspecified osteoarthritis type Every 8 Weeks for 6 Occurrences starting 05/19/2022 until 05/19/2023 [facility] Comment on above: Every 8 Weeks for [...] other than anticoagulant On statin therapy Other emt intermediate (current) drug therapy Cervical disc disorder Cervical disc disorder, unspecified, unspecified cervical region Primary osteoarthritis of both knees Every 12 Weeks for 4 Occurrences starting 09/20/2022 until 09/20/2023 [facility] Comment on above: Every 12 Weeks for [...] high risk medication other than anticoagulant Methotrexate, fpc, current use On statin therapy Other emt intermediate (current) drug therapy Cervical disc disorder Cervical disc disorder, unspecified, unspecified cervical region Primary osteoarthritis of both knees Infliximab (Remicade) long-term use Every 12 Weeks for 4 Occurrences starting 07/04/2023 until 07/04/2024 [facility] Comment on above: Every 12 Weeks for [...] of other malignant neoplasm of skin Other fpc (current) drug therapy On statin therapy Nocturia Methotrexate, fpc, current use Long-term current use of high risk medication other than anticoagulant History of osteomyelitis History of malignant neoplasm of skin Encounter for long-term (current) use of non-steroidal anti-inflammatories Every 12 Weeks for 4 Occurrences starting 10/26/2023 until 10/26/2024 [facility] [employer] 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 Osteoarthritis of both knees, unspecified osteoarthritis type Every 12 Weeks for 4 Occurrences starting 05/07/2024 until 05/07/2025 [facility] [employer] Comment on above: Every 12 Weeks for [...] Asteatosis cutis Actinic keratosis Other proteinuria Other emt intermediate (current) drug therapy On statin therapy Methotrexate, fpc, current use Nocturia Long-term current use of high risk medication other than anticoagulant penitentiary use of drug Infliximab (Remicade) long-term use History of osteomyelitis History of malignant neoplasm of skin Difficulty in urination Current use of fpc anticoagulation Abnormal renal function test 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 Occurrences starting 01/25/2025 until 01/25/2026 [employer] Comment on above: Every 12 Weeks for 4 Occurrences startin g 01/25/2025 until 01/25/2026 End: 10-08-2020 AST [Catalytic activity/Vol] AST Lab Routine Psoriatic arthritis 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 Asteatosis cutis Seborrheic eczema Long-term current use of high risk medication other than anticoagulant Methotrexate, emt intermediate, current use Other emt intermediate (current) drug therapy Eczema, unspecified type Cervical disc disorder Cervical disc disorder, unspecified, unspecified cervical region Osteoarthritis of both knees, unspecified osteoarthritis type Primary osteoarthritis of both knees Psoriasis 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 Comment on above: 6 Occurrences starting 10/08/2019 until 10/08/2020, 1 completed End: 09-22-2021 AST [Catalytic activity/Vol] AST Lab Routine Psoriatic arthritis mutilans Psoriatic arthritis Psoriasis Eczema, unspecified type Personal history of other malignant neoplasm of skin Other fpc (current) drug therapy Methotrexate, fpc, current use Long-term current use of high risk medication other than anticoagulant History of malignant neoplasm of skin Encounter for long-term (current) use of non-steroidal anti-inflammatories Primary osteoarthritis of both knees Osteoarthritis of both knees, unspecified osteoarthritis type Cervical disc disorder, unspecified, unspecified cervical region Cervical disc disorder Pustulosis palmaris et plantaris 6 Occurrences starting 11/04/2020 until 09/22/2021 [facility] [employer] Comment on above: 6 Occurrences starting 11/04/2020 until 09/22/2021 Bacteria identified in Unspecified specimen by Anaerobe culture [facility] Work Phone: Bilirubin, total measurement [facility] BUN/Creatinine ratio [facility] BUN/Creatinine ratio [facility] BUN/Creatinine ratio [facility] BUN/Creatinine ratio [facility] C reactive protein [Mass/volume] in Serum or Plasma [facility] End: 05-19-2023 C-reactive protein C REACTIVE PROTEIN Lab Routine Psoriatic arthritis Psoriatic arthritis mutilans Unspecified open wound, unspecified foot, initial encounter 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 Photoaged skin CRP elevated History of malignant neoplasm of skin History of osteomyelitis penitentiary (current) use of antibiotics Long-term current use of high risk medication other than anticoagulant Methotrexate, fpc, current use On statin therapy Other emt intermediate (current) drug therapy Personal history of other malignant neoplasm of skin Cervical disc disorder Cervical disc disorder, unspecified, unspecified cervical region Primary osteoarthritis of both knees Seborrheic eczema Eczema, unspecified type Encounter for long-term (current) use of non-steroidal anti-inflammatories penitentiary 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 Osteoarthritis of both knees, unspecified osteoarthritis type Every 8 Weeks for 6 Occurrences starting 05/19/2022 until 05/19/2023 [employer] Comment on above: Every 8 Weeks for [...] other than anticoagulant On statin therapy Other emt intermediate (current) drug therapy Cervical disc disorder Cervical disc disorder, unspecified, unspecified cervical region Primary osteoarthritis of both knees Every 12 Weeks for 4 Occurrences starting 09/20/2022 until 09/20/2023 [employer] Comment on above: Every 12 Weeks for [...] high risk medication other than anticoagulant Methotrexate, fpc, current use On statin therapy Other fpc (current) drug therapy Cervical disc disorder Cervical disc disorder, unspecified, unspecified cervical region Primary osteoarthritis of both knees Infliximab (Remicade) long-term use Every 12 Weeks for 4 Occurrences starting 07/04/2023 until 07/04/2024 [facility] Comment on above: Every 12 Weeks for [...] of other malignant neoplasm of skin Other emt intermediate (current) drug therapy On statin therapy Nocturia Methotrexate, emt intermediate, current use Long-term current use of high risk medication other than anticoagulant History of osteomyelitis History of malignant neoplasm of skin Encounter for long-term (current) use of non-steroidal anti-inflammatories Every 12 Weeks for 4 Occurrences starting 10/26/2023 until 10/26/2024 [employer] Comment on above: Every 12 Weeks for [...] other than anticoagulant On statin therapy Other fpc (current) drug therapy Personal history of other malignant neoplasm of skin Cervical disc disorder Cervical disc disorder, unspecified, unspecified cervical region Primary osteoarthritis of both knees 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 Methotrexate, emt intermediate, current use Seborrheic eczema Eczema, unspecified type 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 Osteoarthritis of both knees, unspecified osteoarthritis type Every 12 Weeks for 4 Occurrences starting 05/07/2024 until 05/07/2025 [facility] Comment on above: Every 12 Weeks [...] Asteatosis cutis Actinic keratosis Other proteinuria Other fpc (current) drug therapy On statin therapy Methotrexate, emt intermediate, current use Nocturia Long-term current use of high risk medication other than anticoagulant 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 Calcium [Mass/volume ] in Serum or Plasma [facility] Calcium [Mass/volume ] in Serum or Plasma [facility] Calcium [Mass/volume ] in Serum or Plasma [facility] Carbon dioxide, tota l [Moles/volume] in Central venous blood [facility] Carbon dioxide, tota l [Moles/volume] in Central venous blood [facility] Carbon dioxide, tota l [Moles/volume] in Central venous blood [facility] Carbon dioxide, tota l [Moles/volume] in Central venous blood 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 Asteatosis cutis Seborrheic eczema Long-term current use of high risk medication other than anticoagulant Methotrexate, fpc, current use Other emt intermediate (current) drug therapy Eczema, unspecified type Cervical disc disorder Cervical disc disorder, unspecified, unspecified cervical region Osteoarthritis of both knees, unspecified osteoarthritis type Primary osteoarthritis of both knees Psoriasis penitentiary 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 Encounter for long-term (current) use of non-steroidal anti-inflammatories 6 Occurrences starting 10/08/2019 until 10/08/2020, 1 completed [employer] Comment on above: 6 Occurrences starting 10/08/2019 until 10/08/2020, 1 completed End: 09-22-2021 Complete blood count with white cell differential, automated CBC, EDIF, PLATELET Lab Routine Psoriatic arthritis mutilans Psoriatic arthritis Psoriasis Eczema, unspecified type Personal history of other malignant neoplasm of skin Other fpc (current) drug therapy Methotrexate, fpc, current use Long-term current use of high risk medication other than anticoagulant History of malignant neoplasm of skin Encounter for long-term (current) use of non-steroidal anti-inflammatories Primary osteoarthritis of both knees Osteoarthritis of both knees, unspecified osteoarthritis type Cervical disc disorder, unspecified, unspecified cervical region Cervical disc disorder Pustulosis palmaris et plantaris 6 Occurrences starting 11/04/2020 until 09/22/2021 [employer] Comment on above: 6 Occurrences starting 11/04/2020 until 09/22/2021 End: 05-19-2023 Complete blood count with white cell differential, automated CBC, EDIF, PLATELET Lab Routine Psoriatic arthritis Psoriatic arthritis mutilans Unspecified open wound, unspecified foot, initial encounter 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 Photoaged skin CRP elevated History of malignant neoplasm of skin History of osteomyelitis 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 Long-term current use of high risk medication other than anticoagulant Methotrexate, fpc, current use On statin therapy Other fpc (current) drug therapy Personal history of other malignant neoplasm of skin Cervical disc disorder Cervical disc disorder, unspecified, unspecified cervical region Primary osteoarthritis of both knees Seborrheic eczema Eczema, unspecified type Encounter for long-term (current) use of non-steroidal anti-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 Osteoarthritis of both knees, unspecified osteoarthritis type Every 8 Weeks for 6 Occurrences starting 05/19/2022 until 05/19/2023 [employer] Comment on above: Every 8 Weeks for [...] other than anticoagulant On statin therapy Other emt intermediate (current) drug therapy Cervical disc disorder Cervical disc disorder, unspecified, unspecified cervical region Primary osteoarthritis of both knees Every 12 Weeks for 4 Occurrences starting 09/20/2022 until 09/20/2023 [facility] Comment on above: Every 12 Weeks [...] high risk medication other than anticoagulant Methotrexate, fpc, current use On statin therapy Other emt intermediate (current) drug therapy Cervical disc disorder Cervical disc disorder, unspecified, unspecified cervical region Primary osteoarthritis of both knees Infliximab (Remicade) long-term use Every 12 Weeks for 4 Occurrences starting 07/04/2023 until 07/04/2024 [facility] Comment on above: Every 12 Weeks [...] of other malignant neoplasm of skin Other fpc (current) drug therapy On statin therapy Nocturia Methotrexate, emt intermediate, current use Long-term current use of high risk medication other than anticoagulant History of osteomyelitis History of malignant neoplasm of skin Encounter for long-term (current) use of non-steroidal anti-inflammatories Every 12 Weeks for 4 Occurrences starting 10/26/2023 until 10/26/2024 [employer] Comment on above: Every 12 Weeks for [...] other than anticoagulant On statin therapy Other emt intermediate (current) drug therapy Personal history of other malignant neoplasm of skin Cervical disc disorder Cervical disc disorder, unspecified, unspecified cervical region Primary osteoarthritis of both knees 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 Methotrexate, emt intermediate, current use Seborrheic eczema Eczema, unspecified type penitentiary 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 Osteoarthritis of both knees, unspecified osteoarthritis type Every 12 Weeks for 4 Occurrences starting 05/07/2024 until 05/07/2025 [employer] Comment on above: Every 12 Weeks for [...] Asteatosis cutis Actinic keratosis Other proteinuria Other fpc (current) drug therapy On statin therapy Methotrexate, emt intermediate, current use Nocturia Long-term current use of high risk medication other than anticoagulant 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 Infliximab (Remicade) long-term use History of osteomyelitis History of malignant neoplasm of skin Difficulty in urination Current use of emt intermediate anticoagulation Abnormal renal function test 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 Occurrences starting 01/25/2025 until 01/25/2026 [facility] Comment on above: Every 12 Weeks for 4 Occurrences startin g 01/25/2025 until 01/25/2026 Complete blood count with white cell differential, automated CBC, EDIF, PLATELET Lab Routine Stage 3b chronic kidney disease Ordered: 02/28/2025 [facility] Comment on above: Ordered: 02/28/2025 End: 10-08-2020 Creatinine [Mass/Vol] CREATININE SERUM Lab Routine Psoriatic arthritis 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 Asteatosis cutis Seborrheic eczema Long-term current use of high risk medication other than anticoagulant Methotrexate, emt intermediate, current use Other fpc (current) drug therapy Eczema, unspecified type Cervical disc disorder Cervical disc disorder, unspecified, unspecified cervical region Osteoarthritis of both knees, unspecified osteoarthritis type Primary osteoarthritis of both knees Psoriasis 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 Encounter for long-term (current) use of non-steroidal anti-inflammatories 6 Occurrences starting 10/08/2019 until 10/08/2020, 1 completed [employer] Comment on above: 6 Occurrences starting 10/08/2019 until 10/08/2020, 1 completed End: 09-22-2021 Creatinine [Mass/Vol] CREATININE SERUM Lab Routine Psoriatic arthritis mutilans Psoriatic arthritis Psoriasis Eczema, unspecified type Personal history of other malignant neoplasm of skin Other fpc (current) drug therapy Methotrexate, fpc, current use Long-term current use of high risk medication other than anticoagulant History of malignant neoplasm of skin Encounter for long-term (current) use of non-steroidal anti-inflammatories Primary osteoarthritis of both knees Osteoarthritis of both knees, unspecified osteoarthritis type Cervical disc disorder, unspecified, unspecified cervical region Cervical disc disorder Pustulosis palmaris et plantaris 6 Occurrences starting 11/04/2020 until 09/22/2021 [facility] Comment on above: 6 Occurrences starting 11/04/2020 until 09/22/2021 End: 05-19-2023 Creatinine [Mass/volume] in Serum or Plasma CREATININE SERUM Lab Routine Psoriatic arthritis Psoriatic arthritis mutilans Unspecified open wound, unspecified foot, initial encounter 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 Photoaged skin CRP elevated History of malignant neoplasm of skin History of osteomyelitis 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 Long-term current use of high risk medication other than anticoagulant Methotrexate, emt intermediate, current use On statin therapy Other fpc (current) drug therapy Personal history of other malignant neoplasm of skin Cervical disc disorder Cervical disc disorder, unspecified, unspecified cervical region Primary osteoarthritis of both knees Seborrheic eczema Eczema, unspecified type Encounter for long-term (current) use of non-steroidal anti-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 Osteoarthritis of both knees, unspecified osteoarthritis type Every 8 Weeks for 6 Occurrences starting 05/19/2022 until 05/19/2023 [employer] Comment on above: Every 8 Weeks for [...] other than anticoagulant On statin therapy Other emt intermediate (current) drug therapy Cervical disc disorder Cervical disc disorder, unspecified, unspecified cervical region Primary osteoarthritis of both knees Every 12 Weeks for 4 Occurrences starting 09/20/2022 until 09/20/2023 [employer] Comment on above: Every 12 Weeks for [...] high risk medication other than anticoagulant Methotrexate, fpc, current use On statin therapy Other fpc (current) drug therapy Cervical disc disorder Cervical disc disorder, unspecified, unspecified cervical region Primary osteoarthritis of both knees Infliximab (Remicade) long-term use Every 12 Weeks for 4 Occurrences starting 07/04/2023 until 07/04/2024 [employer] Comment on above: Every 12 Weeks for [...] of other malignant neoplasm of skin Other emt intermediate (current) drug therapy On statin therapy Nocturia Methotrexate, emt intermediate, current use Long-term current use of high risk medication other than anticoagulant History of osteomyelitis History of malignant neoplasm of skin Encounter for long-term (current) use of non-steroidal anti-inflammatories Every 12 Weeks for 4 Occurrences starting 10/26/2023 until 10/26/2024 [facility] Comment on above: Every 12 Weeks [...] other than anticoagulant On statin therapy Other emt intermediate (current) drug therapy Personal history of other malignant neoplasm of skin Cervical disc disorder Cervical disc disorder, unspecified, unspecified cervical region Primary osteoarthritis of both knees 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 Methotrexate, fpc, current use Seborrheic eczema Eczema, unspecified type 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 Osteoarthritis of both knees, unspecified osteoarthritis type Every 12 Weeks for 4 Occurrences starting 05/07/2024 until 05/07/2025 [facility] Comment on above: Every 12 Weeks [...] Asteatosis cutis Actinic keratosis Other proteinuria Other emt intermediate (current) drug therapy On statin therapy Methotrexate, emt intermediate, current use Nocturia Long-term current use of high risk medication other than anticoagulant 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 Infliximab (Remicade) long-term use History of osteomyelitis History of malignant neoplasm of skin Difficulty in urination Current use of fpc anticoagulation Abnormal renal function test 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 Occurrences starting 01/25/2025 until 01/25/2026 [facility] Comment on above: Every 12 Weeks for 4 Occurrences startin g 01/25/2025 until 01/25/2026 Creatinine [Mass/vol ume] in Serum or Plasma [facility] Creatinine [Mass/vol ume] in Serum or Plasma [facility] Creatinine [Mass/vol ume] in Serum or Plasma [facility] Creatinine [Mass/vol ume] in Serum or Plasma 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 Asteatosis cutis Seborrheic eczema Long-term current use of high risk medication other than anticoagulant Methotrexate, emt intermediate, current use Other fpc (current) drug therapy Eczema, unspecified type Cervical disc disorder Cervical disc disorder, unspecified, unspecified cervical region Osteoarthritis of both knees, unspecified osteoarthritis type Primary osteoarthritis of both knees Psoriasis [facility]iary 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 Encounter for long-term (current) use of non-steroidal anti-inflammatories 6 Occurrences starting 10/08/2019 until 10/08/2020, 1 completed [facility] Comment on above: 6 Occurrences starting 10/08/2019 until 10/08/2020, 1 completed End: 09-22-2021 CRP [Mass/Vol] C REACTIVE PROTEIN Lab Routine Psoriatic arthritis mutilans Psoriatic arthritis Psoriasis Eczema, unspecified type Personal history of other malignant neoplasm of skin Other emt intermediate (current) drug therapy Methotrexate, fpc, current use Long-term current use of high risk medication other than anticoagulant History of malignant neoplasm of skin Encounter for long-term (current) use of non-steroidal anti-inflammatories Primary osteoarthritis of both knees Osteoarthritis of both knees, unspecified osteoarthritis type Cervical disc disorder, unspecified, unspecified cervical region Cervical disc disorder Pustulosis palmaris et plantaris 6 Occurrences starting 11/04/2020 until 09/22/2021 [facility] Comment on above: 6 Occurrences starting 11/04/2020 until 09/22/2021 Erythrocyte mean corpuscular volume determination [facility] Erythrocyte mean corpuscular volume determination [facility] Erythrocyte mean corpuscular volume determination [facility] Erythrocyte mean corpuscular volume determination [facility] Erythrocyte sedimentation rate [facility] Ethanol [Mass/volume ] in Serum or Plasma [facility] Glucose [Mass/volume ] in Serum or Plasma [facility] Glucose [Mass/volume ] in Serum or Plasma [facility] Glucose [Mass/volume ] in Serum or Plasma [facility] Glucose [Mass/volume ] in Serum or Plasma [facility] Hematocrit [Volume Fraction] of Blood [facility] Hematocrit [Volume Fraction] of Blood [facility] Hematocrit [Volume Fraction] of Blood [facility] Hematocrit [Volume Fraction] of Blood [facility] Hemoglobin [Mass/vol ume] in Blood [facility] Hemoglobin [Mass/vol ume] in Blood [facility] Hemoglobin [Mass/vol ume] in Blood [facility] Hemoglobin [Mass/vol ume] in Blood [facility] Leukocytes [#/volume ] in Blood [facility] Leukocytes [#/volume ] in Blood [facility] Leukocytes [#/volume ] in Blood [facility] Leukocytes [#/volume ] in Blood [facility] Magnesium [Mass/volu me] in Serum or Plasma MAGNESIUM Lab Routine Stage 3b chronic kidney disease Ordered: 02/28/2025 [facility] Comment on above: Ordered: 02/28/2025 Magnesium measurement [facility] Mean corpuscular hemoglobin concentration determination [facility] Mean corpuscular hemoglobin concentration determination [facility] Mean corpuscular hemoglobin concentration determination [facility] Mean corpuscular hemoglobin concentration determination [facility] Mean corpuscular hemoglobin determination [facility] Mean corpuscular hemoglobin determination [facility] Mean corpuscular hemoglobin determination [facility] Mean corpuscular hemoglobin determination [facility] Measurement of renal function [facility] Measurement of renal function [facility] Measurement of renal function [facility] Measurement of renal function [facility] MICROALBUMIN/CREATIN INE RATIO MICROALBUMIN/CREATININE RATIO Fluids Routine Stage 3b chronic kidney disease Ordered: 02/28/2025 [facility] Comment on above: Ordered: 02/28/2025 Microbial culture, routine Wound Culture [facility] Work Phone: Microscopic observat ion [Identifier] in Unspecified specimen by Gram stain Gram Stain [facility] Work Phone: Microscopic urinalysis [facility] Neutrophil count [facility] Neutrophil count [facility] Neutrophil count [facility] Neutrophil count [facility] Neutrophil percent differential count [facility] Neutrophil percent differential count [facility] Neutrophil percent differential count [facility] Neutrophil percent differential count [facility] Organism count, microscopic method [facility] Patient Education [facility] [employer] Work Phone: Patient referral [facility] Work Phone: Platelets [#/volume] in Blood [facility] Platelets [#/volume] in Blood [facility] Platelets [#/volume] in Blood [facility] Platelets [#/volume] in Blood [facility] Potassium measurement [facility] Potassium measurement [facility] Potassium measurement [facility] Potassium measurement [facility] PTH INTACT PTH INTACT Lab R outine Stage 3b chronic kidney disease Ordered: 02/28/2025 [facility] Comment on above: Ordered: 02/28/[address] blood cell count [facility] Red blood cell count [facility] Red blood cell count [facility] Red blood cell count [facility] Red cell distributio n width determination [facility] Red cell distributio n width determination [facility] Red cell distributio n width determination [facility] Red cell distributio n width determination 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, fpc, current use Other emt intermediate (current) drug therapy Eczema, unspecified type Cervical disc disorder Cervical disc disorder, unspecified, unspecified cervical region Osteoarthritis of both knees, unspecified osteoarthritis type Primary osteoarthritis of both knees Psoriasis penitentiary 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 Encounter for long-term (current) use of non-steroidal anti-inflammatories 6 Occurrences starting 10/08/2019 until 10/08/2020, 1 completed [facility] Comment on above: 6 Occurrences starting 10/08/2019 until 10/08/2020, 1 completed End: 09-22-2021 SEDIMENTATION RATE, AUTOMATED SEDIMENTATION RATE, AUTOMATED Lab Routine Psoriatic arthritis mutilans Psoriatic arthritis Psoriasis Eczema, unspecified type Personal history of other malignant neoplasm of skin Other fpc (current) drug therapy Methotrexate, emt intermediate, current use Long-term current use of high risk medication other than anticoagulant History of malignant neoplasm of skin Encounter for long-term (current) use of non-steroidal anti-inflammatories Primary osteoarthritis of both knees Osteoarthritis of both knees, unspecified osteoarthritis type Cervical disc disorder, unspecified, unspecified cervical region Cervical disc disorder Pustulosis palmaris et plantaris 6 Occurrences starting 11/04/2020 until 09/22/2021 [facility] Comment on above: 6 Occurrences starting 11/04/2020 until 09/22/2021 End: 05-19-2023 SEDIMENTATION RATE, AUTOMATED SEDIMENTATION RATE, AUTOMATED Lab Routine Psoriatic arthritis Psoriatic arthritis mutilans Unspecified open wound, unspecified foot, initial encounter 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 Photoaged skin CRP elevated History of malignant neoplasm of skin History of osteomyelitis penitentiary (current) use of antibiotics Long-term current use of high risk medication other than anticoagulant Methotrexate, fpc, current use On statin therapy Other emt intermediate (current) drug therapy Personal history of other malignant neoplasm of skin Cervical disc disorder Cervical disc disorder, unspecified, unspecified cervical region Primary osteoarthritis of both knees Seborrheic eczema Eczema, unspecified type Encounter for long-term (current) use of non-steroidal anti-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 Osteoarthritis of both knees, unspecified osteoarthritis type Every 8 Weeks for 6 Occurrences starting 05/19/2022 until 05/19/2023 [facility] Comment on above: Every 8 Weeks [...] other than anticoagulant On statin therapy Other fpc (current) drug therapy Cervical disc disorder Cervical disc disorder, unspecified, unspecified cervical region Primary osteoarthritis of both knees Every 12 Weeks for 4 Occurrences starting 09/20/2022 until 09/20/2023 [facility] Comment on above: Every 12 Weeks [...] high risk medication other than anticoagulant Methotrexate, emt intermediate, current use On statin therapy Other fpc (current) drug therapy Cervical disc disorder Cervical disc disorder, unspecified, unspecified cervical region Primary osteoarthritis of both knees Infliximab (Remicade) long-term use Every 12 Weeks for 4 Occurrences starting 07/04/2023 until 07/04/2024 [facility] Comment on above: Every 12 Weeks [...] of other malignant neoplasm of skin Other fpc (current) drug therapy On statin therapy Nocturia Methotrexate, emt intermediate, current use Long-term current use of high risk medication other than anticoagulant History of osteomyelitis History of malignant neoplasm of skin Encounter for long-term (current) use of non-steroidal anti-inflammatories Every 12 Weeks for 4 Occurrences starting 10/26/2023 until 10/26/2024 [facility] Comment on above: Every 12 Weeks [...] other than anticoagulant On statin therapy Other emt intermediate (current) drug therapy Personal history of other malignant neoplasm of skin Cervical disc disorder Cervical disc disorder, unspecified, unspecified cervical region Primary osteoarthritis of both knees 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 Methotrexate, fpc, current use Seborrheic eczema Eczema, unspecified type penitentiary 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 Osteoarthritis of both knees, unspecified osteoarthritis type Every 12 Weeks for 4 Occurrences starting 05/07/2024 until 05/07/2025 [facility] Comment on above: Every 12 Weeks [...] Asteatosis cutis Actinic keratosis Other proteinuria Other fpc (current) drug therapy On statin therapy Methotrexate, fpc, current use Nocturia Long-term current use of high risk medication other than anticoagulant 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 Serum chloride measurement [facility] Serum chloride measurement [facility] Serum chloride measurement [facility] Sodium [Moles/volume ] in Urine SODIUM, RANDOM URINE Fluids Routine Stage 3b chronic kidney disease Ordered: 02/28/2025 [facility] Comment on above: Ordered: 02/28/2025 Sodium measurement [facility] Sodium measurement [facility] Sodium measurement [facility] Sodium measurement [facility] Tissue exam Tissue exam Path ology and Cytology Timed Neoplasm of uncertain behavior of skin Release Upon Ordering for 1 Occurrences starting 07/11/[address] [facility] Work Phone: Comment on above: Release Upon Ordering for 1 Occurrences starting 07/11/[address] 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 Long-term current use of high risk medication other than anticoagulant Methotrexate, emt intermediate, current use On statin therapy Other fpc (current) drug therapy Personal history of other malignant neoplasm of skin Cervical disc disorder Cervical disc disorder, unspecified, unspecified cervical region Primary osteoarthritis of both knees Seborrheic eczema Eczema, unspecified type Encounter for long-term (current) use of non-steroidal anti-inflammatories penitentiary 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 Osteoarthritis of both knees, unspecified osteoarthritis type Every 8 Weeks for 6 Occurrences starting 05/19/2022 until 05/19/2023 [facility] Comment on above: Every 8 Weeks for 6 Occurrences starting 05/19/2022 until 05/19/2023 Urate [Mass/volume] in Serum or Plasma URIC ACID Lab Routine Stage 3b chronic kidney disease Ordered: 02/28/2025 [facility] Comment on above: Ordered: 02/28/2025 Urea nitrogen [Mass/volume] in Serum or Plasma [facility] Urea nitrogen [Mass/volume] in Serum or Plasma [facility] Urea nitrogen [Mass/volume] in Serum or Plasma [facility] Urea nitrogen [Mass/volume] in Serum or Plasma [facility] Urinalysis dipstick W Reflex Microscopic panel - Urine URINE MICROSCOPIC Fluids Routine Stage 3b chronic kidney disease Ordered: 02/28/2025 [facility] Comment on above: Ordered: 02/28/2025 Urinalysis, reagent strip without microscopy URINALYSIS, MACRO Fluids Routine Stage 3b chronic kidney disease Ordered: 02/28/2025 [facility] Comment on above: Ordered: 02/28/2025 Urine microscopy: epithelial cells [facility] Urine microscopy: re d cells [facility] URINE PROTEIN/CREA RATIO, RANDOM URINE PROTEIN/CREA RATIO, RANDOM Fluids Routine Stage 3b chronic kidney disease Ordered: 02/28/2025 [facility] Comment on above: Ordered: 02/28/2025 End: 05-22-2025 US Kidney [facility] Comment on above: 1 Occurrences starting 05/22/2025 until 05/22/2025 Vancomycin [Mass/vol ume] in Serum or Plasma --trough [facility] VITAMIN D (25-HYDROXY,TOTAL) VITAMIN D (25-HYDROXY,TOTAL) Lab Routine Stage 3b chronic kidney disease Ordered: 02/28/2025 [facility] Comment on above: Ordered: 02/28/2025 White blood cell count [facility] Wound Culture Wound Culture [facility] Work Phone: Immunizations Immunization Date Immunization Notes Care Provider [facility] 09-11-2024 influenza virus vaccine, unspecified formulation Christina Cartagena MD Work Phone: [facility] 09-02-2023 influenza virus vaccine, unspecified formulation Georgina Moore MD Work Phone: [facility] 09-02-2022 influenza, injectabl e, quadrivalent, preservative free [facility] 09-02-2022 influenza, seasonal, injectable Dr. Zach Turner Work Phone: [facility] 09-02-2022 influenza virus vaccine, unspecified formulation Coco Shah Jr., DO Work Phone: [facility] 09-17-2021 influenza virus vaccine, unspecified formulation Coco Shah Jr., DO Work Phone: [facility] Payers Date Payer Category Payer Self-pay [id number] 2008 Commercial Managed C are - HMO [facility] [id number] 2008 Unknown [id number] 2008 Medicare MEDICARE MEDICAR E A AND B xxxxxxxxxxx 2008-Present [place], [place] xxxxxxxxxxx [id number] 2008 Medicare MEDICARE MEDICAR E A AND B [id number] 2008-Present [place] [id number] 2008 Medicare [id number] .[id number] 2008 Medicare [id number] 2007 Managed Care (unspecified) [id number] 2007 Unknown GENERIC EXCHANGE GENERIC EXCHANGE [id number] 2007-Present [id number] .[id number] 2007 Unknown GENERIC EXCHANGE GENERIC EXCHANGE [id number] 2007-Present [id number] [id number] .7.3.370579.315 2007 Unknown [id number]. 1.13.172.2 .7.3.276205.315 2007 Unknown [id number] 1945 Unknown [id number] 2.16.840.1.054794.3.579.2 .651 1945 Unknown [id number] 2.16.840.1.089420.3.579.2 .651 1943 Unknown [id number] 2.16.840.1.359652.3.579.2 .983 1945 Unknown [id number] 2.16.840.1.080816.3.579.2 .983 1943 Unknown [id number] 2.16.840.1.891170.3.579.2 .983 1943 Unknown [id number] 2.16.840.1.283803.3.579.2 .98 1945 Unknown [id number] 2.16.840.1.062074.3.579.2 .983 1943 Unknown [id number] 2.16.840.1.598576.3.579.2 .983 1945 Unknown [id number] 2.16.840.1.627232.3.579.2 .983 1945 Unknown [id number] 2.16.840.1.828623.3.579.2 .983 Self-pay SELF PAY BY [employer] REQUEST [id number] Unknown [id number] 2.16.840.1.908828.3.579.2 .462 Unknown [id number] 2.16.840.1.399583.3.579.2 .462 Unknown [id number] 2.16.840.1.103072.3.579.2 .462 Unknown [id number] 2.16.840.1.158806.3.579.2 .462 Unknown [id number] 2.16.840.1.354934.3.579.2 .462 Unknown [id number] 2.16.840.1.139817.3.579.2 .462 Unknown [id number] 2.16.840.1.950429.3.579.2 .462 Unknown [id number] 2.16.840.1.709807.3.579.2 .462 Unknown [id number] 2.16.840.1.463926.3.579.2 .462 Unknown [id number] 2.16.840.1.255885.3.579.2 .462 Unknown [id number] 2.16.840.1.277039.3.579.2 .462 Unknown [id number] 2.16.840.1.708522.3.579.2 .462 Unknown [id number] 2.16.840.1.357817.3.579.2 .462 Unknown [id number] 2.16.840.1.333480.3.579.2 .462 Unknown [id number] 2.16.840.1.365434.3.579.2 .462 Unknown [id number] 2.16.840.1.836784.3.579.2 .462 Unknown [id number] 2.16.840.1.264038.3.579.2 .462 Unknown [id number] 2.16.840.1.862975.3.579.2 .462 Unknown [id number] 2.16.840.1.533335.3.579.2 .462 Unknown [id number] 2.16.840.1.718611.3.579.2 .462 Unknown [id number] 2.16.840.1.841020.3.579.2 .462 Unknown [id number] 2.16.840.1.619704.3.579.2 .462 Unknown [id number] 2.16.840.1.080127.3.579.2 .462 Unknown [id number] 2.16.840.1.998137.3.579.2 .462 Unknown [id number] 2.16.840.1.838324.3.579.2 .462 Unknown [id number] 2.16.840.1.614378.3.579.2 .462 Unknown [id number] 2.16.840.1.275281.3.579.2 .462 Unknown [id number] 2.16.840.1.138539.3.579.2 .462 Unknown [id number] 2.16.840.1.085924.3.579.2 .462 Unknown [id number] 2.16.840.1.963514.3.579.2 .462 Unknown [id number] 2.16840.1.975244.3.579.2 .462 Unknown [id number] 2.16840.1.836485.3.579.2 .462 Social History Date Type Detail Facility Start: 09-25-2018 End: 06-29-2025 Tobacco smoking status PRIS Former smoker [facility] Start: 1945 Sex Assigned At Not on file O [facility] Work Phone: Start: 10-08-2019 End: 05-30-2025 Alcohol intake Current non-drinker of alcohol (finding) [facility] Start: 09-22-2020 End: 09-20-2022 Tobacco use and exposure Never used [facility] Start: 02-03-2022 End: 02-25-2023 Tobacco smoking status NHIS Unknown if ever smoked [facility] Start: 03-04-2021 None [facility] Start: 02-25-2021 Spouse/ Signif icant Other [facility] Start: 03-04-2021 Non-smoker [facility] Start: 1945 Sex Assigned At Male [facility] History of tobacco use Current smoker [facility] Start: 09-20-2022 End: 05-30-2025 History of Social function [facility] Start: 09-20-2022 End: 05-30-2025 Tobacco use panel [facility] Gender identity Identifies as ma le gender (finding) [facility] Start: 02-16-2017 End: 05-24-2024 Sex Male (finding) [facility] Medical Equipment Procedure Code Equipment Code Equipment Origin al Text Equipment Identifier Dates TEST BLOOD SUGAR TWICE DAILY Start: 05-28-2024 Goals Date Patient Goal Desired Activity /State Functional Status Date Assessment Result Facility 04-17-2025 Functional status Standby Assist ;With Assist of 1 [facility] Work Phone: 02-27-2023 Functional status Ambulates [facility] Work Phone: 09-25-2018 Are you deaf, or do you have serious difficulty hearing No 09/25/2018 11:12 AM Yasmin Ortiz LPN No [facility] 09-25-2018 Are you blind, or do you have serious difficulty seeing, even when wearing glasses No 09/25/2018 11:12 AM Yasmin Ortiz LPN No [facility] 09-25-2018 Do you have serious difficulty walking or climbing stairs No 09/25/2018 11:12 AM Yasmin Ortiz LPN [facility] 09-25-2018 Do you have difficul ty dressing or bathing No 09/25/2018 11:12 AM Yasmin Ortiz LPN [facility] 09-25-2018 Because of a physica l, mental, or emotional condition, do you have difficulty doing errands alone such as visiting a physician's office or shopping No 09/25/2018 11:12 AM Yasmin Ortiz LPN No [facility] Mental Status Date Assessment Result Facility 06-28-2025 Cognitive function Awake;Alert;A ppropriate;Fol lows Commands [facility] Work Phone: 06-07-2025 Cognitive function Awake;Alert;A ppropriate;Fol lows Commands [facility] Work Phone: 04-17-2025 Cognitive function Appropriate;Cooperativ e [facility] Work Phone: 04-16-2025 Cognitive function Voice/Name [facility] Work Phone: 04-04-2025 Cognitive function Awake;Alert;A ppropriate;Fol lows Commands [facility] Work Phone: 02-21-2025 Cognitive function Awake;Alert;A ppropriate;Fol lows Commands [facility] Work Phone: 12-25-2024 Cognitive function Voice/Name [facility] Work Phone: 11-09-2024 Cognitive function Awake;Alert;A ppropriate;Fol lows Commands [facility] Work Phone: 02-24-2024 Cognitive function Voice/Name [facility] Work Phone: 01-13-2024 Cognitive function Awake;Alert;A ppropriate;Fol lows Commands [facility] Work Phone: 11-11-2023 Cognitive function Voice/Name [facility] Work Phone: 09-30-2023 Cognitive function Awake;Alert;A ppropriate;Fol lows Commands [facility] Work Phone: 08-19-2023 Cognitive function Awake;Alert;A ppropriate;Fol lows Commands [facility] Work Phone: 07-08-2023 Cognitive function Awake;Alert;A ppropriate;Fol lows Commands [facility] Work Phone: 05-27-2023 Cognitive function Awake;Alert;A ppropriate;Fol lows Commands [facility] Work Phone: 03-25-2023 Cognitive function Voice/Name [facility] Work Phone: 02-27-2023 Cognitive function Voice/Name [facility] Work Phone: 02-25-2023 Cognitive function Level Of Cons ciousness Awake;Alert;Appropriate [facility] Work Phone: 02-11-2023 Cognitive function Voice/Name [facility] Work Phone: 12-31-2022 Cognitive function Level Of Cons ciousness Awake [facility] Work Phone: 10-08-2022 Cognitive function Voice/Name [facility] Work Phone: 08-27-2022 Cognitive function Level Of Cons ciousness Awake;Alert;Appropriate;Fol lows Commands [facility] Work Phone: 07-16-2022 Cognitive function Voice/Name [facility] Work Phone: 06-04-2022 Cognitive function Level Of Cons ciousness Awake;Alert;Appropriate;Fol lows Commands [facility] Work Phone: 04-09-2022 Cognitive function Level Of Cons ciousness Awake;Alert [facility] Work Phone: 02-12-2022 Cognitive function Awake;Alert;A ppropriate;Fol lows Commands [facility] Work Phone: 12-15-2021 Cognitive function Level Of Cons ciousness Awake;Alert;Appropriate;Fol lows Commands [facility] Work Phone: 10-20-2021 Cognitive function Voice/Name [facility] Work Phone: 09-25-2018 Because of a physica l, mental, or emotional condition, do you have serious difficulty concentrating, remembering, or making decisions No 09/25/2018 11:12 AM KASSY Turner BANDAR Hoffman No [facility] Clinical Notes 03-23-2021 to 06-28-2025 Note Date & Type Note Facility 06-28-2025 Radiology Diagnostic study note [facility] 06-21-[address] [facility] 06-21-2025 Radiology Diagnostic study note [facility] Imaging Services [address] [place] [address] Abdomen/Pelvis W IV Cont ONLY MR#: [id number] Acct: [id number] Name: YESSI HATCH Rep #: [id number] : 1945 M 79 From: Umair Reed MD PCP: Dr. Zach Turner MD Status: REG ER Study:Abdomen/Pelvis W IV Cont ONLY Date of E xam: 06/21/25 Exam# [id number] Ordering Dr: Edgar Durham DO PROCEDURE: ABDOMEN/PELVIS [...] pelvis as imaged. Reading Location: [facility] CC: Dr. Edgar Gudino DO; Dr. 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 06-21-2025 Discharge summary Note Date/Time June 21, 2025 7:55pm [facility] Medical Records Department [address] [place] [address] Emergency Department Summary 06/21/25 MR#: [id number] Acct: [id number] Name: YESSI HATCH Rep #:[id number] : 1945 79 From: Edgar guillaume DO [...] his last colonoscopy was years ago in [place] that was unremarkable. Review of systems: See [...] intact Psych: Cooperative, appropriate mood and affect [facility] Medical History Kidney disease GERD (gastroesophageal [...] Held on 06/21/25. Instructions: MD Ordered vitamins A,C,D-xcss-fmojie 4,296 1 cap PO QDAY 03/08/2 5 [...] state that he is currently seeing a mental health orderly due to his CKD. They state his [...] 84.3 H Lymph % (Auto) 8.8 L Howell % (Auto) 5.6 Eos % (Auto) 0.7 [...] Clarity Clear Urine pH 5.0 Ur Specific [place] 1.020 Urine Protein 30 H Urine Glucose [...] abdomen or pelvis as imaged. Reading Location[facility] Discharge Plan Triage Chief Complaint: GI Bleed ED Provider: Edgar Gudino Dx/Rx/DC Orders Prescriptions: No Action Inflectra 100 mg recon soln 100 mg IV UD Patient Comments: IV Rx Instructions: 8 MG/KG, d6dxtpk glucosamine HCl 1,500 mg tablet 1,500 mg [...] MD [Primary Care Provider] - Print Language: Irish What to do if you have Problems For any increased pain, shortness of breath, bleeding, nausea or vomiting, chestpain, or any unexpected problems, contact your Primary Care Provider. Call [facility] ([phone]) or report to the closest Emergency Room. Call 911 if necessary. 06/21/251954 <Electronically signed by Edgar QureshiKerri BURKETT> Cosigner Signature (if applicable): CC: Dr. Zach Turner MD ~ Signed [facility] Work Phone: 1(553) 310-891207-30-2025 History of Present illness Narrative* Georgina Moore MD - 06/12/2025 11:15 AM EDT Images from the original note were not included. DATE OF SERVICE: 06/12/2025 PATIENT NAME: Yessi Hatch : 1945 AGE: 79 y.o. CLINIC NUMBER: [id number] Visit type: Established patient Chief Complaint Patient presents with Skin Lesion EVAN-10/31/2024,ZB Subjective HISTORY OF PRESENT ILLNESS: This is a 79 y.o. male who presents for evaluation of skin lesion; lastseen 10/31/2024. Patient states he is on inflectra infusion for psoriatic arthritis. Pt h/o numerous BCC and SCC. F/u- actinic keratoses located on the Left Forehead, Left Parotid Area, Left Uatsdin, Left Temporal Scalp, Left Zygomatic Area, Right Forehead, Right Parotid Area, Right Uatsdin, Right Temporal Scalp, Right Zygomatic Area At [...] Systems Orders Placed This Encounter Medications fluocinolone (Anton Ruiz-Smoothe) 0.01 % external oil Sig: Apply to [...] 7:49 AM REFERRING MD: documented in this [facility]07-17-2025 History of Present illness Narrative* Christina Cartagena MD - 05/30/2025 11:30 AM EDT DAILY PROGRESS NOTE Admit Date: (Not on file) Date of Evaluation: 511:56 AM [facility] @[facility]@ IMPRESSION AND PLAN: 79 y/o male with [...] Appearance, Urine 05/22/2025 CLEAR CLEAR Final Specific [place], Urine 05/22/2025 1.015 1.010 - 1.025 Final [...] LABS Labs-ABGs @ABGROUNDS@ Labs-CBC @CBCBRIEFROUNDS@ Labs-Chem 7([facility]) @[facility]@ Labs-Coa WBC (WHITE BLOOD COUNT) Date Value Ref [...] Skin: Warm and dry [facility] NotePROCEDURE: US RENAL RETROPERITONEAL HISTORY: Chronic [...] hydronephrosis or shadowing calculus. 2. Left renal cyst.[facility]06-04-2025 Consult note Author Patrick Rojas [facility] Note Date/Time April 17, 2025 12:53 pm [facility] Medical Records Department [address] [place] [address] Consultation 04/16/25 1225 MR#: [id number] Acct: [id number] Name: YESSI HATCH Rep #:[id number] : 1945 79 From: Patrick Rojas DPM PCP: Dr. Zach Turner MD Status:ADM IN Location: MS3 PJ860-0 Assessment & Plan Assessment/Plan (1) Cellulitis of [...] as chronic diarrhea. The patient presented to [facility] emergency department secondary to swollen toe which did not seem to get better. [facility] Medical History Kidney disease GERD (gastroesophageal reflux [...] 12.5 mg PO QDAY 04/15/25 History vitamins A,C,H-qcqt-kpjhwo 4,296 1 cap PO QDAY 5 04/15/25 [...] % (Auto) 59.2, Lymph % (Auto) 21.9, Howell % (Auto) 12.1 H, Eos % (Auto) [...] % (Auto) 52.4, Lymph % (Auto) 28.7, Howell % (Auto) 12.2 H, Eos % (Auto) [...] of the 4th proximal phalanx. Reading Location: [facility] 04/17/25 1253 <Electronically signed by Patrick Rojas DPM> Cosigner Signature (if applicable): CC: Dr. Zach Turner MD~ Signed [facility] Work Phone: 1(712) 812-679806-04-2025 Progress note Author [facility] Martine [facility] Note Date/Time April 17, 2025 12:53 pm [facility] Medical Records Department [address] [place] [address] Progress Note 04/17/25 1245 MR#: [id number] Acct: [id number] Name: YESSI HATCH Rep #:[id number] : 1945 79 From: Patrick Rojas DPM PCP: Dr. Zach Turner MD Status:ADM IN Location: MS3 HG382-6 Subjective Subjective Patient was resting comfortably in [...] 70.3 H, Lymph % (Auto) 15.0 L, Howell % (Auto) 8.9, Eos % (Auto) 4.8, [...] Cosigner Signature (if applicable): CC: ~ Signed [facility] Work Phone: 1(942) 677-833606-04-2025 Discharge summary [facility] Medical Records Department [address] [place] [address] Discharge Summary 04/17/25 1340 MR#: [id number] Acct: [id number] Name: YESSI HATCH Rep #:[id number] : 1945 79 From: Coco Pepe MD PCP: Dr. Zach Turner MD Status:ADM IN [facility] Providers Date of Admission: 04/15/25 Date of Discharge: 04/17/25 Primary Care Physician: Dr. Zach Turner MD Consultations 04/15/25 18:28 Consult: Infectious Disease Routine Consulting Provider: Latonia Brery Reason for Consult: DFU EMERGENT Consult: No Notified: Yes Date Notified: 04/16/25 Time Notified: 06:37 Method of Notification: Text Consult: Onc/Wound/blankmaker Routine Comment: Reason for Consult:: skin tear [...] mg PO DAILY PRN edema 03/08/25 vitamins A,C,N-lewx-sbcpve 4,296 mcg-226 mg-90 mg capsule (PreserVision AREDS) [...] 70.3 H, Lymph % (Auto) 15.0 L, Howell % (Auto) 8.9, Eos % (Auto) 4.8, [...] Patient Comments: IV Rx Instructions: 8 MG/KG, t5jtgth glucosamine HCl 1,500 mg tablet 1,500 mg [...] Health Service Charges/Coding Visit Charges Inpatient E&M: 85578 Disch Hosp >30min 04/17/25 1352 Cosigner Signature (if applicable): CC: Dr. Coco Pepe MD; Dr. Zach Turner MD~ Signed [facility]06[facility]04-20[facility] Consult note [facility] Medical Records Department [address] [place] [address] Consultation 04/16/25 1225 MR#: [id number] Acct: [id number] Name: YESSI HATCH Rep #:[id number] : 1945 79 From: Patrick Rojas DPM PCP: Dr. Zach Turner MD Status:ADM IN Location: MS3 NV660-9 Assessment & Plan Assessment/Plan (1) Cellulitis of [...] well as chronic diarrhea. The patient presented [facility] emergency department secondary to swollen toe which did not seem to get better. [facility] Medical History Kidney disease GERD (gastroesophageal reflux [...] 12.5 mg PO QDAY 04/15/25 History vitamins A,C,B-ulgw-aotwro 4,296 1 cap PO QDAY 5 04/15/25 [...] % (Auto) 59.2, Lymph % (Auto) 21.9, Howell % (Auto) 12.1 H, Eos % (Auto) [...] % (Auto) 52.4, Lymph % (Auto) 28.7, Howell % (Auto) 12.2 H, Eos % (Auto) [...] of the 4th proximal phalanx. Reading Location: [id number] 04/17/25 1253 Cosigner Signature (if applicable): CC: Dr. Zach Turner MD~ Signed [facility]06-04-2025 Progress note [facility] Medical Records Department [address] [place] [address] Progress Note 04/17/25 1245 MR#: [id number] Acct: [id number] Name: YESSI HATCH Rep #:[id number] : 1945 79 From: Patrick Rojas DPM PCP: Dr. Zach Turner MD Status:ADM IN Location: ID3 [id number] Subjective Subjective Patient was resting comfortably in [...] 70.3 H, Lymph % (Auto) 15.0 L, Howell % (Auto) 8.9, Eos % (Auto) 4.8, [...] of left lower limb: 04/17/25 1253 Patrick Doherty Signature (if applicable): CC: ~ Signed [facility]06-04-2025 Progress note Author Coco Pepe [facility] Note Date/Time April 17, 2025 8:55a m [facility] Medical Records Department [address] [place] [address] Progress Note - Hospitalist 04/17/25 0714 MR#: [id number] Acct: [id number] Name: YESSI HATCH Rep #:[id number] : 1945 79 From: Coco Pepe MD PCP: Dr. Zahc Turner MD Status:ADM IN Location: [address] Reason for Visit Reason for Visit: [...] 70.3 H, Lymph % (Auto) 15.0 L, Howell % (Auto) 8.9, Eos % (Auto) 4.8, [...] additional measures Charges/Coding Visit Charges Inpatient E&M: 05638 Subs Hosp L2 04/17/25 0813 <Electronically signed by Coco Pepe MD> Cosigner Signature (if applicable): CC: ~ Signed [facility] Work Phone: 1(427) 306-784006-04-2025 Consult note Author Judith Mar [facility] Note Date/Time April 17, 2025 8:39a [facility] Medical Records Department [address] [place] [address] Pharmacokinetic/Renal -Consult 04/17/25 0837 MR#: [id number] Acct: [id number] Name: YESSI HATCH Rep #:[id number] : 1945 79 From: Judith Ivory PCP: Dr. Zach Turner MD Status:ADM IN Y Location: [place] [address] Consult Antibiotic Management Pharmacy has been consulted [...] signed by Judith Mar> Date _ Judith Mar Cosigner Signature (if applicable): Date CC: ~ Signed [facility] Work Phone: 1(157) 655-698806-04-2025 Progress note [facility] Medical Records Department [address] [place] [address] Progress Note - Hospitalist 04/17/25 0714 MR#: [id number] Acct: [id number] Name: YESSI HATCH Rep #:[id number] : 1945 79 From: Coco Pepe MD PCP: Dr. Zach Turner MD Status:ADM IN Location: [place] [address]-1 Reason for Visit Reason for Visit: Diagnoses [...] 70.3 H, Lymph % (Auto) 15.0 L, Howell % (Auto) 8.9, Eos % (Auto) 4.8, [...] additional measures Charges/Coding Visit Charges Inpatient E&M: 07182 Subs Hosp L2 04/17/25 0855 Cosigner Signature (if applicable): CC: ~ Signed [facility]06-04-2025 Consult note [facility] Medical Records Department [address] [place] [address] Pharmacokinetic/Renal -Consult 04/17/25 0837 MR#: [id number] Acct: [id number] Name: YESSI HATCH Rep #:[id number] : 1945 79 From: Judith Ivory PCP: Dr. Zach Turner MD Status:ADM IN Location: [place] [address] Consult Antibiotic Management Pharmacy has been consulted [...] Signature (if applicable): Date CC: ~ Signed [facility]06-03-2025 Consult note Author Latonia Berry [facility] Note Date/Time April 16, 2025 10:[address] [facility] Medical Records Department [address] [place] [address] Consultation - Infectious Dx 04/16/25 1032 MR#: [id number] Acct: [id number] Name: YESSI HATCH Rep #:[id number] : 1945 79 From: Latonia patel MD PCP: Dr. Zach Turner MD Status:ADM IN [place] [facility] [place]H181-[place] Assessment & Plan Assessment/Plan (1) Chronic kidney [...] performed and neg except as noted above. [facility] Medical History Kidney disease GERD (gastroesophageal reflux [...] 12.5 mg PO QDAY 04/15/25 History vitamins A,C,P-bnyv-vqxeks 4,296 1 cap PO QDAY 5 04/15/25 [...] % (Auto) 59.2, Lymph % (Auto) 21.9, Howell % (Auto) 12.1 H, Eos % (Auto) [...] % (Auto) 52.4, Lymph % (Auto) 28.7, Howell % (Auto) 12.2 H, Eos % (Auto) [...] of the 4th proximal phalanx. Reading Location: [facility] 04/16/251034 <Electronically signed by Latonia Berry MD> Cosigner Signature (if applicable): CC: Dr. Zach Turner MD~ Signed [facility] Work Phone: 1(372) 421-599206-03-2025 [facility]06-03-2025 Consult note [facility] Medical Records Department [address] [place] [address] Consultation - Infectious Dx 04/16/25 1032 MR#: [id number] Acct: [id number] Name: YESSI HATCH Rep #:[id number] : 1945 79 From: Latonia patel MD PCP: Dr. Zach Turner MD Status:ADM IN Location: MS3 NN462-4 Assessment & Plan Assessment/Plan (1) Chronic kidney [...] performed and neg except as noted above. [facility] Medical History Kidney disease GERD (gastroesophageal reflux [...] 12.5 mg PO QDAY 04/15/25 History vitamins A,C,N-cebf-lqjuzl 4,296 1 cap PO QDAY 03/08/2 5 [...] % (Auto) 59.2, Lymph % (Auto) 21.9, Howell % (Auto) 12.1 H, Eos % (Auto) [...] % (Auto) 52.4, Lymph % (Auto) 28.7, Howell % (Auto) 12.2 H, Eos % (Auto) [...] of the 4th proximal phalanx. Reading Location: [facility] 04/16/25 1035 Cosigner Signature (if applicable): CC: Dr. Zach Turner MD~ Signed [facility]06-03-2025 Progress note [facility] Note Date/Time April 16, 2025 8:26a [facility] Medical Records Department [address] [place] [address] Progress Note - Hospitalist 04/16/25 0728 MR#: [id number] Acct: [id number] Name: YESSI HATCH Rep #:[id number] : 1945 79 From: Coco Pepe MD PCP: Dr. Zach Turner MD Status:ADM IN Location: [place] [address]-1 Reason for Visit Reason for Visit: Diagnoses [...] % (Auto) 59.2, Lymph % (Auto) 21.9, Howell % (Auto) 12.1 H, Eos % (Auto) [...] % (Auto) 52.4, Lymph % (Auto) 28.7, Howell % (Auto) 12.2 H, Eos % (Auto) [...] of the 4th proximal phalanx. Reading Location: [facility] Physical Exam Narrative GENERAL: cooperative HEENT: Atraumatic; [...] additional measures Charges/Coding Visit Charges Inpatient E&M: 70444 Subs Hosp L2 04/16/25 0826 <Electronically signed by Coco Pepe MD> Cosigner Signature (if applicable): CC: ~ Signed [facility] Work Phone: 1([phone]) 677-110906-03-2025 Consult note Author Meena Rico [facility] Note Date/Time April 16, 2025 7:15a m [facility] Medical Records Department [address] [place] [address] Pharmacokinetic/Renal -Consult 04/15/251956 MR#: [id number] Acct: [id number] Name: YESSI HATCH Rep #:[id number] : 1945 79 From: Meena Rico PCP: Dr. Zach Turner MD Status:ADM IN Location: [place] [address] Consult Antibiotic Management Pharmacy has been consulted [...] by Meena garcia> Date _ Meena Rico 04/16/25714 <Electronically signed by Coco Pepe MD> Cosigner Signature (if applicable): Date Coco Pepe MD CC: ~ Signed [facility] Work Phone: 1([phone]) [phone] Progress note [facility] Medical Records Department [address] [place] [address] Progress Note - Hospitalist 04/16/25727 MR#: [id number] Acct: [id number] Name: YESSI HATCH Rep #:[id number] : 1945 79 From: Coco Pepe MD PCP: Dr. Zach Turner MD Status:ADM IN [facility] Reason for Visit Reason for Visit: Diagnoses [...] % (Auto) 59.2, Lymph % (Auto) 21.9, Howell % (Auto) 12.1 H, Eos % (Auto) [...] % (Auto) 52.4, Lymph % (Auto) 28.7, Howell % (Auto) 12.2 H, Eos % (Auto) [...] of the 4th proximal phalanx. Reading Location: [facility] Physical Exam Narrative GENERAL: cooperative HEENT: Atraumatic; [...] additional measures Charges/Coding Visit Charges Inpatient E&M: 08837 Subs Hosp L2 04/16/25 4302 Cosigner Signature (if applicable): CC: ~ Signed [facility]06-03-2025 Consult note [facility] Medical Records Department [address] [place] [address] Pharmacokinetic/Renal -Consult 04/15/251956 MR#: [id number] Acct: [id number] Name: YESSI HATCH Rep #:[id number] : 1945 79 From: Meena Rico PCP: Dr. Zach Turner MD Status:ADM IN Location: [place] [address] Consult Antibiotic Management Pharmacy has been consulted [...] dosing as required. 04/15/251957 ey> Date _ Meenajose Rico 04/16/25 0715 > Chas Signature (if applicable): Date Coco Pepe MD CC: ~ Signed [facility]06-03-2025 Discharge summary Author Edgar Gudino [facility] Note Date/Time April 16, 2025 1:44a m [facility] Medical Records Department [address] [place] [address] Emergency Department Summary 04/15/25 MR#: [id number] Acct: [id number] Name: YESSI HATCH Rep #:[id number] : 1945 79 From: Edgar guillaume DO PCP: Dr. Zach Turner MD Status:ADM IN [place] [facility] UI398-0 HPI History of Present Illness Chief Complaint: [...] intact Psych: Cooperative, appropriate mood and affect [facility] Medical History (Updated 04/15/25 @ 18:32 by [...] 12.5 mg PO QDAY 04/15/25 History vitamins A,C,Q-yhee-piihlj 4,296 1 cap PO QDAY 5 04/15/25 [...] % (Auto) 59.2 Lymph % (Auto) 21.9 Howell % (Auto) 12.1 H Eos % (Auto) [...] of the 4th proximal phalanx. Reading Location: [id number] Discharge Plan Disposition Disposition: Acute Care Hospital [facility] Discharge Date/Time: 04/15/25 18:06 What to do if you have Problems For any increased pain, shortness of breath, bleeding, nausea or vomiting, chestpain, or any unexpected problems, contact your Primary Care Provider. Call [facility] ([phone]) or report to the closest Emergency Room. Call 911 if necessary. 04/16/25 0144 <Electronically signed by Edgar Gudino DO> Cosigner Signature (if applicable): CC: Dr. Zach Turner MD ~ Signed [facility] Work Phone: 1(285) 512-330606-03-2025 Discharge summary [facility] Medical Records Department [address] [place] [address] Emergency Department Summary 04/15/25 MR#: [id number] Acct: [id number] Name: YESSI HATCH Rep #:[id number] : 1945 79 From: Edgar guillaume DO PCP: Dr. Zach Turner MD Status:ADM IN Location: [place] [address] HPI History of Present Illness Chief Complaint: [...] intact Psych: Cooperative, appropriate mood and affect [facility] Medical History (Updated 04/15/25 @ 18:32 by [...] 12.5 mg PO QDAY 04/15/25 History vitamins A,C,Z-igap-lqphcs 4,296 1 cap PO QDAY 5 04/15/25 [...] % (Auto) 59.2 Lymph % (Auto) 21.9 Howell % (Auto) 12.1 H Eos % (Auto) [...] of the 4th proximal phalanx. Reading Location: [id number] Discharge Plan Disposition Disposition: Acute Care Hospital [facility] Discharge Date/Time: 04/15/25 18:06 What to do if you have Problems For any increased pain, shortness of breath, bleeding, nausea or vomiting, chestpain, or any unexpected problems, contact your Primary Care Provider. Call [facility] ([phone]) or report tothe closest Emergency Room. Call 911 if necessary. 04/16/25 0144 Cosigner Signature (if applicable): CC: Dr. Zach Turner MD ~ Signed [facility]06-02-2025 History and physical note Author Coco [facility] Note Date/Time April 15, 2025 6:11p m [facility] Medical Records Department [address] [place] [address] H&P Exam - Hospitalist 04/15/25 1720 MR#: [id number] Acct: [id number] Name: YESSI HATCH Rep #:[id number] : 1945 79 From: Coco Pepe MD PCP: Dr. Zach Turner MD Status:ADM [place] [facility] [place] HPI - General General Date of Admission: [...] without much improvement. 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 Patrick Rojas who advised patient to to present to the emergency department. Imaging studies obtained demonstrated degenerative changes throughout the right foot with soft tissue swelling involving multiple toes. Patient was started on broad- spectrum antibiotic therapy admitted to regular nursing floor for further management [facility] Medical History Hypertension, well controlled Amputation toe [...] 12.5 mg PO QDAY 04/15/25 History vitamins A,C,U-eyqm-vtmqlj 4,296 1 cap PO QDAY 5 04/15/25 [...] % (Auto) 59.2, Lymph % (Auto) 21.9, Howell % (Auto) 12.1 H, Eos % (Auto) [...] of the 4th proximal phalanx. Reading Location: [id number] Assessment & Plan Assessment/Plan (1) Diabetic foot [...] Multi Select Codes Visit Charges Visit Charges: 07585 Init Hosp L3 Hospitalists' Procedures Procedures: 33212 Advncd Care Plan 30 Min 04/15/25 1816 <Electronically signed by Coco Pepe MD> Cosigner Signature (if applicable): CC: Dr. Coco Pepe MD; Dr. Zach Turner MD~ Signed [facility] Work Phone: 1(609) 326-776406-02-2025 History and physical note [facility] Medical Records Department [address] [place] [address] H&P Exam - Hospitalist 04/15/25 1720 MR#: [id number] Acct: [id number] Name: YESSI HATCH Rep #:[id number] : 1945 79 From: Coco Pepe MD PCP: Dr. Zach Turner MD Status:ADM IN [place] [facility] [place]474-0 HPI - General General Date of Admission: [...] without much improvement. 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 Patrick Rojas who advised patient to to present to the emergency department. Imaging studies obtained demonstrated degenerative changes throughout the right foot with soft tissue swelling involving multiple toes. Patient was started on broad-spectrum antibiotic therapy admitted to regular nursing floor for further management [facility] Medical History Hypertension, well controlled Amputation toe [...] 12.5 mg PO QDAY 04/15/25 History vitamins A,C,X-rasn-ihdggl 4,296 1 cap PO QDAY 03/08/ 5 [...] % (Auto) 59.2, Lymph % (Auto) 21.9, Howell % (Auto) 12.1 H, Eos % (Auto) [...] of the 4th proximal phalanx. Reading Location: [id number] Assessment & Plan Assessment/Plan (1) Diabetic foot [...] Multi Select Codes Visit Charges Visit Charges: 83681 Init Hosp Hospitalists' Procedures Procedures: 95814 Advncd Care Plan 30 Min 04/15/25 1811 Cosigner Signature (if applicable): CC: Dr. Coco Pepe MD; Dr. Zach Turner MD~ Signed [facility]06-02-2025 Radiology Diagnostic study note [facility] Imaging Services [address] [place], [place] [address] Foot min 3 Views MR#: [id number] Acct: [id number] Name: YESSI HATCH Rep #: [id number] : 1945 M 79 From: Meka Cabrales MD PCP: Dr. Zach Turner MD Status: REG ER Study:Foot min 3 Views Date of Exam: 01/08 Exam# [id number] Ordering Dr: Edgar Durham DO PROCEDURE: FOOT [...] of the 4th proximal phalanx. Reading Location: [id number]-S CC: Dr. Edgar Gudino DO; Dr. 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05-14-2025 Radiology Diagnostic study note [facility] Imaging Services [address] [place], [place] [address] Foot min 3 Views MR#: [id number] Acct: [id number] Name: YESSI HATCH Rep #: [id number] : 1945 M 79 From: Darling Lind MD PCP: Dr. Zach Turner MD Status: REG CLI Study:Foot min 3 Views Date of Exam: Exam# [id number] Ordering Dr: Torin Rojas DPElvia EXAM: XR Left Foot Complete, 3 or [...] Osteomyelitis can not be excluded. Reading Location: [facility] CC: DPElvia Rojas; Dr. 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04-25-2025 Evaluation note* Diagnosis Onset Date Resolution Status [...] of bone chronic April 15, 2025 5:21pm [facility] Work Phone: 1(341) 116-822004-17-2025 History and physical note* Christina Cartagena MD - 02/28/2025 10:30 AM EDT I saw Yessi Hatch in renal clinics at [facility] in [place] on 02/28/2025. Assessment/Plan: 79 y/o male with [...] Physician: Pablo History of Present Illness: Yessi Grant Holden is a 79 y.o. male who we [...] 10/08/2019 CREATSERUM 1.2 09/25/2018 CREATSERUM 1.1 06/01/2017 [facility]04-17-2025 History and physical note* Christina Cartagena MD - 02/28/2025 10:30 AM EDT I saw Yessi Hatch in renal clinics at [facility] in [place] on 02/28/2025. Assessment/Plan: 79 y/o male with [...] 09/25/2018 CREATSERUM 1.1 06/01/2017 documented in this [facility]03-14-2025 History of Present illness Narrative* Coco [...] intact. Sensory: Sensation is intact. 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 FREEZER ASSISTANT was elevated at 1.42 with GFR of 51 and still is at 26/1.4 with GFR of 52 16. Derm F/U per Dr. Joe malloy 17. Stop Aleve 18. Optho F/U per Dr. Chan. 19. 90 day supply on medications 20. 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 Work Phone: 1(632) 758-894202-26-2025 Evaluation note* Diagnosis Onset Date Resolution Status Admit Date Raynauds phenomenon acute Febru 2024 9:21am Atrial fibrillation acute March 08, 2025 11:13am Chronic kidney disease chronic Ap ril 2024 11:13am Essential hypertension chronic Ap ril 2024 11:13am Hyperlipidemia chronic February 11:13am [facility] Work Phone: 1(175) 941-972102-26-2025 Evaluation note* Diagnosis Onset Date Resolution Status [...] of bone chronic April 15, 2025 5:21pm [facility] Work Phone: 1(182) 280-708512-18-2024 History of Present illness Narrative* Georgina Moore MD - 10/31/2024 12:30 PM EST Images from the original note were not included. DATE OF SERVICE: 10/31/2024 PATIENT NAME: Yessi Hatch : 1945 AGE: 79 y.o. CLINIC NUMBER: [id number] Visit type: Established patient Chief Complaint Patient [...] or Adhesive? No. 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 Excessive sun exposure: Yes Used tanning beds: [...] (10) Left Forehead, Left Parotid Area, Left [place], Left Temporal Scalp, Left Zygomatic Area, Right Forehead, Right Parotid Area, Right [place]din, Right Temporal Scalp, Right Zygomatic Area Widespread [...] on face, armpits, groin Risks associated with fpc topical steroid use reviewed in detail. Patient [...] 10:46 AM REFERRING MD: documented in this encounterSOhio[facility] Doctors [id number] Telephone encounter Note* Telephone Encounter - Courtney Shoemaker LPN - 07/26/2024 5:22 PM EDT Patient scheduled with [facility] on 08/15/2024 at 1:15 pm. [id number] Miscellaneous Notes* Telephone Encounter - Courtney Shoemaker [...] ear treated by Moh's. documented in this [facility]09-09-2024 Telephone encounter Note* Telephone Encounter - Shala [...] phone number. Pt educated and verbalized understanding. [facility]116 Telephone encounter Note* Telephone Encounter - Shala Vallejo MA - 07/20/2024 9:03 AM EDT Called and LMOM for pt-Pt to return call. [facility]3805 Telephone encounter Note* Telephone Encounter - Charu Wolfe RN - 07/19/2024 5:23 PM EDT Patient left voicemail on nurse line requesting a call back for his recent biopsy results. He states he has other questions as well. [facility]th[facility]66-57-9850 Telephone encounter Note* Telephone Encounter - Shala Vallejo MA - 07/18/2024 4:57 PM EDT Called and LMOM for pt-Pt to return call. [facility] [id number] Telephone encounter Note* Telephone Encounter - Georgina Moore MD - 07/17/2024 10:31 PM EDT Please refer the patient to a Moh's surgeon to have the lesion of his left ear treated by Moh's. [facility] [id number] History of Present illness Narrative* Georgina Moore MD - 07/11/2024 12:45 PM EDT Images from the original note were not included. DATE OF SERVICE: 07/11/2024 PATIENT NAME: Yessi Hatch : 1945 AGE: 79 y.o. 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 male who presents for evaluation of spots on the scalp, face, neck and L ear x over 1 year. Pt states the lesions are scaly and bleed at time. Pt admits to picking at the lesion on the ear. Pt h/o numerous BCC and SCC. He was seeing a Ice Cream Mixer in [place] at [facility] but he retired a few years [...] if better. He sees Dr. Shah in [place] twice a year. History of pacemaker/ defibrillator? No History of HIV/ Hep C? No Allergies to Lidocaine, Epinephrine, Latex or Adhesive? 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 Excessive sun exposure: Yes Used tanning beds: [...] of uncertain behavior of skin Left [place] 1.5cm hemorrhagic nodule Skin Biopsy Type of [...] 7:08 AM REFERRING MD: documented in this [facility]08-28-2024 History of Present illness Narrative* Georgina Moore MD - 07/11/2024 12:45 PM EDT Images from the original note were not included. DATE OF SERVICE: 07/11/2024 PATIENT NAME: Yessi Hatch : 1945 AGE: 79 y.o. 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 male who presents for evaluation of spots on the scalp, face, neck and L ear x over 1 year. Pt states the lesions are scaly and bleed at time. Pt admits to picking at the lesion on the ear. Pt h/o numerous BCC and SCC. He was seeing a Ice Cream Mixer in [place] at [facility] but he retired a few years [...] if better. He sees Dr. Shah in [place] twice a year. History of pacemaker/ defibrillator? No History of HIV/ Hep C? No Allergies to Lidocaine, Epinephrine, Latex or Adhesive? 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 6. The wound should improve daily. If [...] in about 2 weeks. documented in this [facility]08-28-2024 Instructions* Patient Instructions* Shala Vallejo MA - 07/11/2024 12:45 PM EDT [facility] Rx: Efudex (fluorouracil) Cream Apply a [...] does not stop, call our office at [phone]. 6. The wound should improve daily. If [...] in about 2 weeks. documented in this [facility]08-28-2024 Miscellaneous Notes* Addendum Note - Ernestine Grullon - 07/11/2024 12:45 PM EDTAddended by: ERNESTINE GRULLON on: 08/28/2024 08:46 AM Modules accepted: Orders documented in this [facility]08-28-2024 Note* Addendum Note - Ernestine Grullon - 07/11/2024 12:45 PM EDTAddended by: ERNESTINE GRULLON on: 08/28/2024 08:46 AM Modules accepted: Orders [id number] NoteAddended by: ERNESTINE GRULLON on: 08/28/2024 08:46 AM Modules accepted: [facility] [id number] History of Present illness Narrative* Coco Shah [...] other than anticoagulant On statin therapy Other fpc (current) drug therapy Personal history of other [...] Uric acid was normal at 5.9 15. FREEZER ASSISTANT was 1.23 with GFR of 60 and is now elevated at 1.42 with GFR of 51 16. Derm F/U per Dr. Joe malloy 17. Stop Aleve 18. Optho F/U per Dr. Chan. 19. 90 day supply on medications 20. penitentiary side effects of prednisone gone over with the patient 21. Hgb 12.7 22. Call if need Rx's 23. Follow-up with me in 6 months [facility]12[facility] History of Present illness Narrative* Coco [...] of other malignant neoplasm of skin Other fpc (current) drug therapy On statin therapy Nocturia Methotrexate, emt intermediate, current use Long-term current use of high [...] Uric acid was normal at 5.9 15. FREEZER ASSISTANT was elevated at 1.55 with GFR of [...] of to be used as needed 23. 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 Rx given for Methotrexate 3 pills one day a week documented in this [facility]08-21-2023 History of Present illness Narrative* Coco [...] high risk medication other than anticoagulant Methotrexate, emt intermediate, current use On statin therapy Other emt intermediate (current) drug therapy Cervical disc disorder Cervical [...] Uric acid was normal at 5.9 15. FREEZER ASSISTANT is elevated at 1.55 with GFr of [...] me in 4 months documented in this [facility]05-15-[facility] ACCOUNT SEX AGE ADMIT DISCHARGE PT MED. RECORD# NUMBER DATE DATE TYPE HOLDEN [id number] Elvia 77 03/03/23 03/03/23 2 YESSI [id number] ROOM: DATE OF : 41 DICTATING PHYSICIAN: [...] was made for him to go to [email or web address], but unfortunately the appointment is not for at least another month. The patient then had called the office stating that his foot was starting to get warm and swollen, and the previous cultures had been taken. The patient was encouraged to report to the Emergency Department, where he did at [facility]. He was admitted for a few days and placed on antibiotics. He was educated that surgical intervention would likely be necessary in an effort to heal the wound. The patient wished to follow up as an outpatient to have the surgery performed. When the patient had come to the office, he stated that another hog sticker had suggested a Cosme arthroplasty with pin [...] will present for outpatient surgical intervention to [facility] on the morning of March 04, 2023. [...] Patrick Rojas DPM 03/03/23 17:05 JOB #: [id number] Transcribed By: fani 03/03/23 17:15 Electronically signed by: E-SIGN PATRICK ROJAS 03/28/23 07:28 Update to H&P: [ ] No changes: I have examined the patient and reviewed the H&P and there are no changes. [ ] As previously dictated with the following changes: ____ ____ ____ PHYSICIAN SIGNATURE: TIME: DATE: Page 2 of 2 YESSI HATCH [facility] Hospital Discharge instructions Additional Instructions Date of Discharge: 02/27/23[facility] Work Phone: 1(788) 540-172104-15-2023 Progress note Author Chevy Bautista [facility] February 26, 2023 4:50pm Note Date/Time February 26, 2023 4:[address] [facility] Medical Records Department [address] [place] [address] Progress Note 02/26/23 1633 MR#: [id number] Acct: [id number] Name: YESSI HATCH Rep #:[id number] : 1945 77 From: Chevy schroeder DPM PCP: Dr. Zach Turner MD Status:ADM IN Location: [address] Subjective Subjective Patient seen this afternoon resting [...] % (Auto) 69.1, Lymph % (Auto) 19.7, Howell % (Auto) 7.2, Eos % (Auto) 3.1, [...] and myself did discuss on phone with Loan BroussardP.Chandra in regards to surgical management of this [...] receive Cosme osteotomy of the left hallux. Jr. Jacobo Sorensen.P.M. [facility] [phone] 02/26/23 1650 <Electronically signed by Chevy Bautista DPM> Chevy Faulkner Cosigner Signature (if applicable): CC: ~ Signed [facility] Work Phone: 1(142) 115-957504-14-2023 Consult note Author Chevy Bautista [facility] February 25, 2023 7:05pm Note Date/Time February 25, 2023 6:5 6pm [facility] Medical Records Department [address] [place] [address] Consultation 02/25/23 1834 MR#: [id number] Acct: [id number] Name: YESSI HATCH Rep #:[id number] : 1945 77 From: Chevy schroeder DPM PCP: Dr. Zach Turner MD Status:ADM IN Location: [place] [address] Assessment & Plan Assessment/Plan (1) Diabetic foot [...] would like to follow-up with Dr. Freeman. Chevy Bautista Jr. LoanP.M. [facility] [phone] HPI Consult Data Date of Consult: 02/25/23 HPI Narrative Reason for Consultation: Left Sub hallux ulceration HPI Narrative: YESSI HATCH, is a 77 M who presents presents to the [facility] ED with a nonhealing ulceration to the [...] with me. He did seek treatment with Dr. Patrick Freeman, Jacobo.P.M. and undergoing conservative treatment with local wound [...] have bloody drainage. He was admitted to [facility] and hewas consulted to podiatry for evaluation of his nonhealing plantar hallux wound. [facility] Medical History (Updated 02/25/23 @ 18:52 by [...] 76.7 H, Lymph % (Auto) 11.3 L, Howell % (Auto) 8.9, Eos % (Auto) 2.2, [...] Signed: Nnamdi Carlson MD at 13:57 EDT , 02/25/231904 <Electronically signed by Chevy Bautista DPM> Cosigner Signature (if applicable): CC: Dr. Zach Turner MD~ Signed [facility] Work Phone: 1(260) 216-188904-14-[address] [facility] February 25, 2023 5:17pm Note Date/Time February 25, 2023 12: 41pm [facility] Medical Records Department [address] [place] [address] Emergency Department Summary 02/25/23 MR#: [id number] Acct: [id number] Name: YESSI HATCH Rep #:[id number] : 1945 77 From: Mervin White MD PCP: Dr. Zach Turner MD Status:ADM IN [facility] History of Present Illness Chief Complaint: [...] a little malaised today compared to normal. PFSH [facility] Medical History Acute osteomyelitis involving ankle and [...] mg-vit E 90 mg-zinc 40 mg-copper 1 td-cxhaqt-bnxbdo capsule 1 cap PO DAILY 02/20/20 [History Last Taken Unknown] glipizide 10 mg tablet 10 mg PO DAILY 05/30/20 [History Last Taken Unknown] infliximab-dyyb 100 mg intravenous solution (Inflectra) mg IV [id number] psoriaticarthritis 05/30/20 [History Last Taken 08/15/20] naproxen [...] 76.7 H Lymph % (Auto) 11.3 L Howell % (Auto) 8.9 Eos % (Auto) 2.2 [...] Signed: Nnamdi Carlson MD at 13:57 EDT , Management Discussion w/another healthcare provider: Hospitalist Discharge Plan Triage Chief Complaint: Cellulitis ED Provider: Mervin White Dx/Rx/DC Orders Clinical Impression: Diabetic infection of left foot, Cellulitis of left foot Prescriptions: No Action Inflectra 100 mg recon soln IV [id number] Label Comments: IV Rx Instructions: 8 MG/KG [...] MG tablet 5 mg PO DAILY vit C,C-Hi-nzhxl-lutein-zeaxan [phone] ph-azho-na-mg capsule 1 cap PO DAILY methotrexate sodium [...] Provider] - Disposition Disposition: Acute Care Hospital [facility] What to do if you have Problems For any increased pain, shortness of breath, bleeding, nausea or vomiting, chestpain, or any unexpected problems, contact your Primary Care Provider. Call [facility] ([phone]) or report to the closest Emergency Room. Call 911 if necessary. 02/25/23 1717 <Electronically signed by Mervin White MD> Cosigner Signature (if applicable): CC: Dr. Zach Turner MD ~ Signed [facility] Work Phone: 1(373) 608-524701-18-2023 Progress note Author Tanesha Alva [facility] December 01, 2022 10:24am Note Date/Time December 01, 2022 1 0:24am [facility] [address] [place] [address] Progress Note - Wound Care 12/01/22 1021 MR#: [id number] Acct: [id number] Name: YESSI HATCH Rep #:[id number] : 1945 77 From: Tanesha Alva MECHANICAL TECHNICAL SERVICE SPECIALIST MECHANICAL TECHNICAL SERVICE SPECIALIST-C PCP: Dr. Zach Turner MD Status:REG RCR [...] He has been seen by his own hog sticker Dr. Nguyen and he referred him tohere. [...] Recorded Date Recorded By Document 11/24/22 09:40 [facility] [id number] 11/24/22 09:45 [facility] Document 12/01/22 09:50 [place] [id number] 12/01/22 09:53 [place] 11/24/22 12/01/22 09:40 09:50 - Today's Visit Information Type of service Follow-up Visit Follow-up Visit (Physician/CUPOLA TENDER HELPER (Physician/CUPOLA TENDER HELPER ) ) Arrival Mode Ambulatory Ambulatory Transfer [...] Numeric Is Patient Pain Free? Yes Yes WC - Nurse 1 - General Ulcer Measurement Start: 11/24/22 09:40 Freq: Status: Active Protocol: Activity Type Activity Date Activity User E-sign Co-sign Detail Recorded Client Recorded Date Recorded By Document 11/24/22 09:40 [facility] [id number] 11/24/22 09:45 [facility] Document 12/01/22 09:50 [place] [id number] 12/01/22 09:53 [place] 11/24/22 12/01/22 09:40 09:50 [...] Amt Medium (34-66%) Large (67-100%) -Granulation Quality [place],Red Red -Slough/Fibrin No No -Necrosis Amt Medium [...] Date Recorded By Document 11/24/22 09:57 MW [id number] 11/24/22 10:04 MW Document 12/01/22 09:58 MW [id number] 12/01/22 10:01 MW 11/24/22 12/01/22 09:57 09:58 [...] Recorded Date Recorded By Document 11/24/22 10:13 [facility] [id number] 11/24/22 10:13 [facility] 11/24/22 10:13 Wound Care Nurse 3 [...] 1024 <Electronically signed by Tanesha Alva NP MECHANICAL TECHNICAL SERVICE SPECIALIST-C> Cosigner Signature (if applicable): CC: ~ Signed [facility] Work Phone: 1(633) 196-888801-11-2023 Progress note Author Tanesha Alva [facility] November 24, 2022 11:10am Note Date/Time November 24, 2022 1 1:10am [facility] [address] [place] [address] Progress Note - Wound Care 11/24/22 1107 MR#: [id number] Acct: [id number] Name: YESSI HATCH Rep #:[id number] : 1945 77 From: Tanesha Alva MECHANICAL TECHNICAL SERVICE SPECIALIST MECHANICAL TECHNICAL SERVICE SPECIALIST-C PCP: Dr. Zach Turner MD Status:REG RCR [...] He has been seen by his own hog sticker Dr. Nguyen and he referred him tohere. [...] Recorded Date Recorded By Document 11/24/22 09:40 [facility] [id number] 11/24/22 09:45 [facility] 11/24/22 09:40 - Today's Visit Information Type of service Follow-up Visit (Physician/CUPOLA TENDER HELPER ) Arrival Mode Ambulatory Transfer Assistance None [...] Recorded Date Recorded By Document 11/24/22 09:40 [facility] [id number] 11/24/22 09:45 [facility] 11/24/22 09:40 Wound Center Nurse 1 #10 [...] Attached -Granulation Amt Medium (34-66%) -Granulation Quality [place],Red -Slough/Fibrin No -Necrosis Amt Medium (34-66%) -Necrotic [...] Date Recorded By Document 11/24/22 09:57 MW [id number] 11/24/22 10:04 MW 11/24/22 09:57 Wound Center [...] Is Patient Pain Free? Yes - Nurse 3 - General Ulcer D/C NN Start: 11/24/22 09:40 Freq: Status: Active Protocol: Activity Type Activity Date Activity User E-sign Co-sign Detail Recorded Client Recorded Date Recorded By Document 11/24/22 10:13 [facility] [id number] 11/24/22 10:13 [facility] 11/24/22 10:13 Wound Care Nurse 3 [...] Numeric Is Patient Pain Free? Yes - Visit Discharge Discharge Condition Stable Ambulatory [...] 1110 <Electronically signed by Tanesha Alva NP MECHANICAL TECHNICAL SERVICE SPECIALIST-C> Cosigner Signature (if applicable): CC: ~ Signed [facility] Work Phone: [phone]) 945-808511-07-2022 History of Present illness Narrative* Coco Carter Pablo Wilson, DO - 09/20/2022 1:00 PM EST Images [...] other than anticoagulant On statin therapy Other emt intermediate (current) drug therapy Cervical disc disorder Cervical [...] per Dr. Chan. 19. Wound clinic in [place] 20. 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 Chan. 20. Wound clinic in [place] . 90 day supply on medications documented in this [facility]01-03-2022 SARS-CoV RNA RENATE+probe Ql (Unsp spec)Coronavirus 2019 (RENATE)November 16, 2021 12:37pmDetectedNot DetectedPatients who have a positive COVID-19 test result may nowhave treatment options. Treatment options are available forpatients with mild to moderate symptoms and forhospitalized patients. Visit our website [email or web address] for resources andinformation.This nucleic acid amplification test [...] of in vitro diagnostic tests for detection [id number] virus and/or diagnosis of COVID-19 infectionunder section [...] have a negative(not detected) result in this assay.[employer] A#[id number]. [facility] Work Phone: Comment on above:Patients who have a positive COVID-19 test result may nowhave treatment options. Treatment options are available forpatients with mild to moderate symptoms and forhospitalized patients. Visit our website [email or web address] for resources andinformation.This nucleic acid amplification test was developed and itsperformance characteristics determined by [employer]. Nucleic acid amplification tests include RT- PCR and TMA. This test has not been FDA cleared orapproved. This test has been authorized by FDA under anEmergency Use Authorization (EUA). This test is onlyauthorizedfor the duration of time the declaration thatcircumstances exist justifying the authorization of theemergency use of in vitro diagnostic tests for detection [id number] virus and/or diagnosis of COVID-19 infectionunder section [...] this assay.03-23-2021 History of Present illness Narrative* Pablo Wilson, Coco Carter, - 03/23/2021 11:30 AM EDT History of [...] palmaris et plantaris Psoriasis Psoriatic arthritis Other emt intermediate (current) drug therapy History of malignant neoplasm of skin Long-term current use of high risk medication other than anticoagulant Personal history of other malignant neoplasm of skin Encounter for long-term (current) use of non-steroidal anti-inflammatories Methotrexate, emt intermediate, current use penitentiary (current) use of antibiotics Osteoarthritis of both [...] me in 4 months [facility]. Hendricks [facility] February 27, 2023 11:48am Note Date/Time February 27, 2023 11: 42am [facility] Medical Records Department [address] [place] [address] Instructions for Home/Discharge Instructions 02/27/23 1138 MR#: [id number] Acct: [id number] Name: YESSI HATCH Rep #:[id number] : 1945 77 From: Eddie Hendricks DO [...] Label Comments: IV Rx Instructions: 8 MG/KG, [id number] glucosamine HCl 1,500 mg tablet 1,500 mg [...] Bautista; Dr. Zach Turner MD ~ Signed [facility] Work Phone: Discharge summary Author Coco Pepe [facility] Note Date/Time April 17, 2025 1:52p m [facility] Medical Records Department [address] [place] [address] Discharge Summary 04/17/25 1340 MR#: [id number] Acct: [id number] Name: YESSI HATCH Rep #:[id number] : 1945 79 From: Coco Pepe MD PCP: Dr. Zach Turner MD Status:ADM [place] [facility] [id number] Providers Date of Admission: 04/15/25 Date of Discharge: 04/17/25 Primary Care Physician: Dr. Zach Turner MD Consultations 04/15/25 18:28 Consult: Infectious Disease Routine Consulting Provider: Latonia Berry Reason for Consult: DFU EMERGENT Consult: No Notified: Yes Date Notified: 04/16/25 Time Notified: 06:37 Method of Notification: Text Consult: Onc/Wound/blankmaker Routine Comment: Reason for Consult:: skin tear [...] mg PO DAILY PRN edema 03/08/25 vitamins A,C,W-cgcp-vxseqf 4,296 mcg-226 mg-90 mg capsule (PreserVision AREDS) [...] 70.3 H, Lymph % (Auto) 15.0 L, Howell % (Auto) 8.9, Eos % (Auto) 4.8, [...] Patient Comments: IV Rx Instructions: 8 MG/KG, o8hlacl glucosamine HCl 1,500 mg tablet 1,500 mg [...] Health Service Charges/Coding Visit Charges Inpatient E&M: 14138 Disch Hosp >30min 04/17/25 1352 <Electronically signed by Coco Pepe MD> Cosigner Signature (if applicable): CC: Dr. Coco Pepe MD; Dr. Zach Turner MD~ Signed 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 Other psoriasis Psoriasis Other psoriasis Psoriatic arthritis Psoriatic arthropathy Other emt intermediate (current) drug therapy History of malignant neoplasm of skin Personal history of other malignant neoplasm of skin Long-term current use of high risk medication other than anticoagulant Personal history of other malignant neoplasm of skin Encounter for long-term (current) use of non-steroidal anti-inflammatories Methotrexate, fpc, current use Encounter for long-term (current) use of other medications penitentiary (current) use of antibiotics Osteoarthritis of both knees, unspecified osteoarthritis type Cervical disc disorder, unspecified, unspecified cervical region Primary osteoarthritis of both knees Primary localized osteoarthrosis, lower leg Cervical disc disorder Other and unspecified disc disorder of cervical region [facility] Diagnosis Onset Date Resolution Status Essential hypertension chron ic Hyperlipidemia chronic Paroxysmal ventricular tachycardia chronic Premature atrial contractions chronic Supraventricular tachycardia 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 Long-term current use of high risk medication other than anticoagulant Methotrexate, emt intermediate, current use Encounter for long-term (current) use of other medications On statin therapy Other fpc (current) drug therapy Personal history of other malignant neoplasm of skin Cervical disc disorder Other and unspecified disc disorder of cervical region Cervical disc disorder, unspecified, unspecified cervical region Primary osteoarthritis of both knees Primary localized osteoarthrosis, lower leg Seborrheic eczema Other seborrheic dermatitis Eczema, unspecified type Encounter for long-term (current) use of non-steroidal anti-inflammatories penitentiary 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 Osteoarthritis of both knees, unspecified osteoarthritis type [facility] Diagnosis Onset Date Resolution Status Decubitus ulcer limited to breakdown of skin (stage 2) acute [id number] acute Decubitus ulcer limited to breakdown of skin (stage 2) acute [id number] [facility] Work Phone: Evaluation note* Diagnosis Onset Date Resolution Status Decubitus ulcer limited to breakdown of skin (stage 2) acute [id number] acute Decubitus ulcer limited to breakdown of skin (stage 2) acute [id number] acute Decubitus ulcer limited to breakdown of skin (stage 2) acute [id number] [facility] Work Phone: Evaluation note* Diagnosis Onset Date Resolution Status Decubitus ulcer limited to breakdown of skin (stage 2) acute [id number] acute Decubitus ulcer limited to breakdown of skin (stage 2) acute [id number] acute Decubitus ulcer limited to breakdown of skin (stage 2) acute [id number] acute Decubitus ulcer limited to breakdown of skin (stage 2) acute [id number] [facility] Work Phone: Evaluation note* Diagnosis Onset Date Resolution Status Decubitus ulcer limited to breakdown of skin (stage 2) acute [id number] acute Decubitus ulcer limited to breakdown of skin (stage 2) acute [id number] acute Decubitus ulcer limited to breakdown of skin (stage 2) acute [id number] acute Decubitus ulcer limited to breakdown of skin (stage 2) acute [id number] acute Decubitus ulcer limited to breakdown of skin (stage 2) acute [id number] [facility] Work Phone: Evaluation note* Diagnosis Psoriatic [...] other than anticoagulant On statin therapy Other fpc (current) drug therapy Cervical disc disorder Other and unspecified disc disorder of cervical region Cervical disc disorder, unspecified, unspecified cervical region Primary osteoarthritis of both knees Primary localized osteoarthrosis, lower leg [facility] Diagnosis Onset Date Resolution Status Decubitus ulcer limited to breakdown of skin (stage 2) acute [id number] acute Decubitus ulcer limited to breakdown of skin (stage 2) acute [id number] acute Acquired hallux extensus acu te Acquired hammer toe deformit y of lesser toe of left foot acute Decubitus ulcer limited to breakdown of skin (stage 2) acute [id number] acute 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 Work Phone: Evaluation note* Diagnosis Onset Date Resolution Status Decubitus ulcer limited to breakdown of skin (stage 2) acute [id number] acute Decubitus ulcer limited to breakdown of skin (stage 2) acute [id number] acute Acquired hallux extensus acu te Acquired hammer toe deformit y of lesser toe of left foot acute Decubitus ulcer limited to breakdown of skin (stage 2) acute [id number] acute Chronic ulcer of right foot with [...] ed with type 2 diabetes mellitus chronic [id number] [facility] Work Phone: Evaluation note* Diagnosis Onset Date Resolution Status Decubitus ulcer limited to breakdown of skin (stage 2) acute [id number] acute Acquired hallux extensus acu te Acquired hammer toe deformit y of lesser toe of left foot acute Decubitus ulcer limited to breakdown of skin (stage 2) acute [id number] acute Chronic ulcer of right foot with [...] ed with type 2 diabetes mellitus chronic [id number] [facility] Work Phone: Evaluation note* Diagnosis Onset Date Resolution Status Acquired hallux extensus acu te Acquired hammer toe deformit y of lesser toe of left foot acute Decubitus ulcer limited to breakdown of skin (stage 2) acute [id number] acute Chronic ulcer of right foot with [...] ed with type 2 diabetes mellitus chronic [id number] [facility] Work Phone: Evaluation note* Diagnosis [...] ed with type 2 diabetes mellitus chronic [id number] [facility] Work Phone: Evaluation note* Diagnosis Psoriatic arthritis- [...] high risk medication other than anticoagulant Methotrexate, fpc, current use Encounter for long-term (current) use of other medications On statin therapy Other emt intermediate (current) drug therapy Cervical disc disorder Other and unspecified disc disorder of cervical region Cervical disc disorder, unspecified, unspecified cervical region Primary osteoarthritis of both knees Primary localized osteoarthrosis, lower leg Infliximab (Remicade) long-term use documented in this encounter [facility] noteNo assessment information availableWCleveland Clinic Union [facility] Work Phone: Evaluation note* Diagnosis Psoriatic [...] of other malignant neoplasm of skin Other fpc (current) drug therapy On statin therapy Nocturia Methotrexate, fpc, current use Encounter for long-term (current) use of other medications Long-term current use of high risk medication other than anticoagulant History of osteomyelitis Personal history of other musculoskeletal disorders History of malignant neoplasm of skin Personal history of other malignant neoplasm of skin Encounter for long-term (current) use of non-steroidal anti-inflammatories documented [facility] this [facility] Diagnosis Psoriatic arthritis- Primary Psoriatic [...] other than anticoagulant On statin therapy Other emt intermediate (current) drug therapy Personal history of other malignant neoplasm of skin Cervical disc disorder Other and unspecified disc disorder of cervical region Cervical disc disorder, unspecified, unspecified cervical region Primary osteoarthritis of both knees Primary localized osteoarthrosis, lower leg Psoriasis Other psoriasis Pustulosis palmaris et plantaris Other psoriasis Asteatosis cutis Other specified disease of sebaceous glands Methotrexate, fpc, current use Encounter for long-term (current) use of other medications Seborrheic eczema Other seborrheic dermatitis Eczema, unspecified type 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 Osteoarthritis of both knees, unspecified osteoarthritis type [facility] encounter [facility]* Diagnosis Neoplasm of uncertain behavior of skin- Primary Actinic keratoses Actinic keratosis [facility]* Diagnosis 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 documented in this encounter [facility]* Diagnosis Neoplasm of uncertain behavior of skin- Primary Actinic keratoses Actinic keratosis [facility] Diagnosis Actinic keratoses- Primary Actinic keratosis 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 documented in this encounter [facility] note* Diagnosis Psoriatic arthritis- Primary Psoriatic arthropathy [...] sebaceous glands Actinic keratosis Other proteinuria Other emt intermediate (current) drug therapy On statin therapy Methotrexate, fpc, current use Encounter for long-term (current) use of other medications Nocturia Long-term current use of high risk medication other than anticoagulant 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 Encounter for long-term (current) use of other medications Infliximab (Remicade) long-term use History of osteomyelitis Personal history of other musculoskeletal disorders History of malignant neoplasm of skin Personal history of other malignant neoplasm of skin Difficulty in urination Other symptoms involving urinary system Current use of fpc anticoagulation Encounter for long-term (current) use of anticoagulants Abnormal renal function test Nonspecific abnormal results of kidney function study Psoriatic arthritis mutilans Psoriatic arthropathy Encounter for long-term (current) use of non-steroidal anti-inflammatories penitentiary 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 Osteoarthritis of both knees, unspecified osteoarthritis type documented in this encounter [facility]* Diagnosis Stage 3b chronic kidney disease- Primary [facility] Diagnosis Stage 3b chronic kidney disease documented in this encounter [facility]* Diagnosis Stage 3b chronic kidney disease- Primary documented in this encounter [facility]* Diagnosis Skin lesion- Primary Unspecified disorder of skin and subcutaneous tissue Pruritus Unspecified pruritic disorder documented in this encounter [facility] Discharge instructions Additional Instructions Date of Discharge: 02/27/23[facility] Work Phone: Hospital Discharge instructionsAdditional Instructions Return back to the emergency department if bleeding your symptoms symptoms reoccur or worsen. Follow-up with GI for your GI bleed and pancreatic duct stone. Follow-up with your primary care physician and mental health orderly for your CKD.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 Procedures [place] OFFICE/OUTPATIENT [facility] 60 MINUTES Georgina Moore MD [address] [facility], [address] [place] [address] Jordana Villarreal MD [address] [place] [address] Referral ID Status Reason Start Date Expiration Date V isits Requested Visits Authorized [id number] Closed Specialty Services Required 07/23/2024 07/23/2025 1 1 [facility] for referral (narrative)No reason for referral information availableWCleveland Clinic Union Hospital Work Phone: Rekivw for visit Narrative* Radiology (Routine) - Closed Specialty Diagnoses / Procedures Referred By Vanesa shultz Referred To Contact Diagnoses Stage 3b chronic kidney disease Procedures US RENAL RETROPERITONEAL Christina Cartagena MD [address] [place] [address] Phone: tel: fax: Referral ID Status Reason Start Date Expiration Date Visits Re quested Visits Authorized [id number] Closed 02/28/2025 03/25/2026 1 1 [employer] Summary Purpose Family History Relationship Condition Age at Onset Recorded Date/T emily father Malignant neoplasm Unknown mother Depression Unknown Relationship Condition Age at Onset Recorded Date/T emily father Malignant neoplasm Unknown mother Depression Unknown uncle Myocardial infarction Unknown son Cerebrovascular accident (CVA) Unknown Advance Directives Advance Directive Response Recorded Date/ Time Advance Directives Yes February 02, 016 11:57am Living Will Yes July 20, 7:07pm Power of Cellophane Worker Yes July 20, 2021 7:07pm Advance Directive Response Recorded Date/ Time Advance Directives Yes February 02, 016 11:57am Living Will No February 22, 2022 1:40pm Power of Cellophane Worker Yes February 22 1:40pm Advance Directive Response Recorded Date/ Time Name of Medical Power of Cellophane Worker DELMAR HATCH February 22, 2022 1:40pm Advance Directives Yes February 02, 016 11:57am Living Will No February 22, 2022 1:40pm Power of Cellophane Worker Yes February 22 1:40pm Advance Directive Response Recorded Date/ Time Advance Directives Yes February 02, 10:57am Living Will No February 22, 2022 12:40pm Power of Cellophane Worker Yes February 22 12:40pm Advance Directive Response Recorded Date/ Time Advance Directives Yes February 02, 11:57am Living Will No February 25, 2023 12:33pm Power of Cellophane Worker No February 25 12:33pm Advance Directive Response Recorded Date/ Time Advance Directives Yes February 02 11:57am Living Will Yes February 25, 2023 5:23pm Power of Cellophane Worker No February 25 5:23pm Advance Directive Response Recorded Date/ Time Advance Directives Yes February 02, 10:57am Living Will Yes February 25, 2023 4:23pm Power of Cellophane Worker No February 25 4:23pm Advance Directive Response Recorded Date/ Time Advance Directives Yes February 02, 11:57am Advance Directive Response Recorded Date/ Time Living Will Yes February 25, 2023 5:23pm Do you have a Healthcare Power of Cellophane Worker? No February 25, 2023 5:23pm Advance Directives Yes February 02 11:57am Advance Directive Response Recorded Date/ Time Living Will Yes February 25, 2023 5:23pm Do you have a Healthcare Power of Cellophane Worker? No February 25, 2023 5:23pm Do you have a Healthcare Power of Cellophane Worker? Yes April 15, 2025 3:27pm Advance Directives Yes February 02 11:57am Advance Directive Response Recorded Date/ Time Living Will Yes February 25, 2023 5:23pm Do you have a Healthcare Power of Cellophane Worker? No February 25, 2023 5:23pm Do you have a Healthcare Power of Cellophane Worker? Yes April 15, 2025 6:22pm Advance Directives Yes February 02 11:57am Advance Directive Response Recorded Date/ Time Living Will Yes February 25, 2023 5:23pm Do you have a Healthcare Power of Cellophane Worker? No February 25, 2023 5:23pm Living Will Yes March 13, 2025 8:41pm Do you have a Healthcare Power of Cellophane Worker? No March 13, 2025 8:41pm Do you have a Healthcare Power of Cellophane Worker? Yes April 15, 2025 6:22pm Advance Directives Yes February 02 11:57am Advance Directive Response Recorded Date/ Time Living Will Yes February 25, 2023 5:23pm Do you have a Healthcare Power of Cellophane Worker? No February 25, 2023 5:23pm Do you have a Healthcare Power of Cellophane Worker? Yes June 21, 2025 4:38pm Living Will Yes March 13, 2025 8:41pm Do you have a Healthcare Power of Cellophane Worker? No March 13, 2025 8:41pm Do you have a Healthcare Power of Cellophane Worker? Yes April 15, 2025 6:22pm Advance Directives Yes February 02 11:57am Advance Directive Response Recorded Date/ Time Do you have a Healthcare Power of Cellophane Worker? Yes June 21, 2025 4:38pm Living Will Yes March 13, 2025 8:41pm Do you have a Healthcare Power of Cellophane Worker? No March 13, 2025 8:41pm Do you have a Healthcare Power of Cellophane Worker? Yes April 15, 2025 6:22pm Do you have a Healthcare Power of Cellophane Worker? No June 29, 2025 12:05am Advance Directives Yes February 02 11:57am History of Present Illness * Pablo Wilson, Coco Carter, - 10/08/2019 10:45 AM EST History of [...] high risk medication other than anticoagulant Methotrexate, emt intermediate, current use Other emt intermediate (current) drug therapy Eczema, unspecified type Cervical [...] of other malignant neoplasm of skin Other fpc (current) drug therapy Methotrexate, emt intermediate, current use Long-term current use of high [...] 8 weeks. Patient had lab 12/2018 in [place] but I do not have the results [...] in this encounter* Coco Shah Jr., - 05/14/2020 10:45 AM EDT History of [...] high risk medication other than anticoagulant Methotrexate, emt intermediate, current use Other fpc (current) drug therapy Cervical disc disorder Cervical [...] high risk medication other than anticoagulant Methotrexate, fpc, current use Encounter for long-term (current) use of other medications Other fpc (current) drug therapy Eczema, unspecified type Cervical disc disorder Other and unspecified disc disorder of cervical region Cervical disc disorder, unspecified, unspecified cervical region Osteoarthritis of both knees, unspecified osteoarthritis type Primary osteoarthritis of both knees Primary localized osteoarthrosis, lower leg Psoriasis Other psoriasis 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 Encounter for long-term (current) use of non-steroidal anti-inflammatories Diagnosis Psoriatic arthritis mutilans- Primary Psoriatic arthropathy Psoriatic arthritis Psoriatic arthropathy Psoriasis Other psoriasis Eczema, unspecified type Personal history of other malignant neoplasm of skin Other emt intermediate (current) drug therapy Methotrexate, emt intermediate, current use Encounter for long-term (current) use [...] high risk medication other than anticoagulant Methotrexate, fpc, current use Encounter for long-term (current) use of other medications Other emt intermediate (current) drug therapy Claudication Peripheral vascular disease, unspecified Osteoarthritis of both knees, unspecified osteoarthritis type Primary osteoarthritis of both knees Primary localized osteoarthrosis, lower leg Eczema, unspecified type Psoriasis Other psoriasis Diagnosis Psoriatic arthritis 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 Other psoriasis Long-term current use of high risk medication other than anticoagulant Methotrexate, fpc, current use Encounter for long-term (current) use of other medications Other emt intermediate (current) drug therapy Cervical disc disorder Other and unspecified disc disorder of cervical region Cervical disc disorder, unspecified, unspecified cervical region Osteoarthritis of both knees, unspecified osteoarthritis type Primary osteoarthritis of both knees Primary localized osteoarthrosis, lower leg Psoriasis Other psoriasis penitentiary 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 Encounter for [...] limited to breakdown of skin (stage 2) [id number] Chief Complaint PSORIATIC ARTHRITIS INFECTION IN FOOT PSORIATIC ARTHRITIS wound STANDING ORDER wound wound wound wound wound wound wound PSORIATIC ARTHRITIS wound wound Reason for Visit Decubitus ulcer limi brit to breakdown of skin (stage 2) [id number] Decubitus ulcer limited to breakdown of skin (stage 2) [id number] Chief Complaint INFECTION IN FOOT PSORIATIC ARTHRITIS wound STANDING ORDER wound wound wound wound wound wound wound PSORIATIC ARTHRITIS wound wound SINUSITIS Reason for Visit Decubitus ulcer limi brit to breakdown of skin (stage 2) [id number] Decubitus ulcer limited to breakdown of skin (stage 2) [id number] Chief Complaint INFECTION IN FOOT PSORIATIC ARTHRITIS wound STANDING ORDER wound wound wound wound wound wound wound PSORIATIC ARTHRITIS wound wound SINUSITIS wound wound Reason for Visit Decubitus ulcer limi brit to breakdown of skin (stage 2) [id number] Decubitus ulcer limited to breakdown of skin (stage 2) [id number] Decubitus ulcer limited to breakdown of skin (stage 2) [id number] Chief Complaint PSORIATIC ARTHRITIS wound STANDING ORDER wound wound wound wound wound wound wound PSORIATIC ARTHRITIS wound wound SINUSITIS wound S/O wound wound wound wound wound Reason for Visit Decubitus ulcer limi brit to breakdown of skin (stage 2) [id number] Decubitus ulcer limited to breakdown of skin (stage 2) [id number] Decubitus ulcer limited to breakdown of skin (stage 2) [id number] Chief Complaint PSORIATIC ARTHRITIS wound STANDING ORDER wound wound wound wound wound wound wound PSORIATIC ARTHRITIS wound wound SINUSITIS wound S/O wound wound wound wound wound PSORIATIC ARTHRITIS wound wound Reason for Visit Decubitus ulcer limi brit to breakdown of skin (stage 2) [id number] Decubitus ulcer limited to breakdown of skin (stage 2) [id number] Decubitus ulcer limited to breakdown of skin (stage 2) [id number] Decubitus ulcer limited to breakdown of skin (stage 2) [id number] Chief Complaint wound STANDING ORDER wound wound wound wound wound wound wound PSORIATIC ARTHRITIS wound wound SINUSITIS wound S/O wound wound wound wound wound PSORIATIC ARTHRITIS wound wound wound wound wound Reason for Visit Decubitus ulcer limi brit to breakdown of skin (stage 2) [id number] Decubitus ulcer limited to breakdown of skin (stage 2) [id number] Decubitus ulcer limited to breakdown of skin (stage 2) [id number] Decubitus ulcer limited to breakdown of skin (stage 2) [id number] Chief Complaint wound wound wound wound wound wound PSORIATIC ARTHRITIS wound wound SINUSITIS wound S/O wound wound wound wound wound PSORIATIC ARTHRITIS wound wound wound wound wound wound S/O wound wound PSORIATIC ARTHRITIS Reason for Visit Decubitus ulcer limi brit to breakdown of skin (stage 2) [id number] Decubitus ulcer limited to breakdown of skin (stage 2) [id number] Decubitus ulcer limited to breakdown of skin (stage 2) [id number] Decubitus ulcer limited to breakdown of skin (stage 2) [id number] Decubitus ulcer limited to breakdown of skin (stage 2) [id number] Chief Complaint wound wound wound PSORIATIC ARTHRITIS wound wound SINUSITIS wound S/O wound wound wound wound wound PSORIATIC ARTHRITIS wound wound wound wound wound wound S/O wound PSORIATIC ARTHRITIS FLU SHOT wound wound Reason for Visit Decubitus ulcer limi brit to breakdown of skin (stage 2) [id number] Decubitus ulcer limited to breakdown of skin (stage 2) [id number] Decubitus ulcer limited to breakdown of skin (stage 2) [id number] Decubitus ulcer limited to breakdown of skin (stage 2) [id number] Chief Complaint wound S/O wound wound wound wound wound PSORIATIC ARTHRITIS wound wound wound wound wound wound S/O wound PSORIATIC ARTHRITIS FLU SHOT wound wound wound wound wound PSORIATIC ARTHRITIS wound wound Reason for Visit Decubitus ulcer limi brit to breakdown of skin (stage 2) [id number] Decubitus ulcer limited to breakdown of skin (stage 2) [id number] Decubitus ulcer limited to breakdown of skin (stage 2) [id number] Decubitus ulcer limited to breakdown of skin (stage 2) [id number] Chief Complaint wound wound wound wound wound wound S/O wound PSORIATIC ARTHRITIS FLU SHOT wound wound wound wound wound PSORIATIC ARTHRITIS wound wound wound wound wound wound wound Reason for Visit Decubitus ulcer limi brit to breakdown of skin (stage 2) [id number] Decubitus ulcer limited to breakdown of skin (stage 2) [id number] Decubitus ulcer limited to breakdown of skin (stage 2) [id number] Decubitus ulcer limited to breakdown of skin (stage 2) [id number] Chief Complaint wound wound wound wound wound S/O wound PSORIATIC ARTHRITIS FLU SHOT wound wound wound wound wound PSORIATIC ARTHRITIS wound wound wound wound wound wound wound PSORIATIC ARTHRITIS Reason for Visit Decubitus ulcer limi brit to breakdown of skin (stage 2) [id number] Decubitus ulcer limited to breakdown of skin (stage 2) [id number] Decubitus ulcer limited to breakdown of skin (stage 2) [id number] Decubitus ulcer limited to breakdown of skin (stage 2) [id number] Chief Complaint wound wound wound S/O wound PSORIATIC ARTHRITIS FLU SHOT wound wound wound wound wound PSORIATIC ARTHRITIS wound wound wound wound wound wound wound PSORIATIC ARTHRITIS wound S/O EVERY 3 MONTHS wound wound Reason for Visit Decubitus ulcer limi brit to breakdown of skin (stage 2) [id number] Decubitus ulcer limited to breakdown of skin (stage 2) [id number] Decubitus ulcer limited to breakdown of skin (stage 2) [id number] Decubitus ulcer limited to breakdown of skin (stage 2) [id number] Decubitus ulcer limited to breakdown of skin (stage 2) [id number] Chief Complaint wound S/O wound PSORIATIC ARTHRITIS FLU SHOT wound wound wound wound wound PSORIATIC ARTHRITIS wound wound wound wound wound wound wound PSORIATIC ARTHRITIS wound S/O EVERY 3 MONTHS wound wound Reason for Visit Decubitus ulcer limi brit to breakdown of skin (stage 2) [id number] Decubitus ulcer limited to breakdown of skin (stage 2) [id number] Decubitus ulcer limited to breakdown of skin (stage 2) [id number] Decubitus ulcer limited to breakdown of skin (stage 2) [id number] Chief Complaint wound wound wound wound wound PSORIATIC ARTHRITIS wound S/O EVERY 3 MONTHS wound wound wound PSORIATIC ARTHRITIS wound PSORIATIC ARTHRITIS Reason for Visit Decubitus ulcer limi brit to breakdown of skin (stage 2) [id number] Decubitus ulcer limited to breakdown of skin (stage 2) [id number] 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 Decubitus ulcer limited to breakdown of skin (stage 2) [id number] Chronic ulcer of right foot with fat [...] brit to breakdown of skin (stage 2) [id number] Decubitus ulcer limited to breakdown of skin (stage 2) [id number] 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 Decubitus ulcer limited to breakdown of skin (stage 2) [id number] Chronic ulcer of right foot with fat [...] brit to breakdown of skin (stage 2) [id number] Decubitus ulcer limited to breakdown of skin (stage 2) [id number] 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 Decubitus ulcer limited to breakdown of skin (stage 2) [id number] Chronic ulcer of right foot with fat [...] ulcer associated with type 2 diabetes mellitus [id number] Chief Complaint wound wound wound PSORIATIC ARTHRITIS wound PSORIATIC ARTHRITIS CELLULITIS Cellulitis Cellulitis Cellulitis PSORIATIC ARTHRITIS Reason for Visit Decubitus ulcer limi brit to breakdown of skin (stage 2) [id number] 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 Decubitus ulcer limited to breakdown of skin (stage 2) [id number] Chronic ulcer of right foot with fat [...] ulcer associated with type 2 diabetes mellitus [id number] Chief Complaint wound PSORIATIC ARTHRITIS CELLULITIS Cellulitis Cellulitis Cellulitis PSORIATIC ARTHRITIS 2 ORDERING DOCTORS Reason for Visit Acquired hallux exte nsus 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 Decubitus ulcer limited to breakdown of skin (stage 2) [id number] Chronic ulcer of right foot with fat [...] ulcer associated with type 2 diabetes mellitus [id number] Chief Complaint PSORIATIC ARTHRITIS CELLULITIS Cellulitis Cellulitis Cellulitis PSORIATIC ARTHRITIS 2 ORDERING DOCTORS Reason for Visit Acquired hammer toe of left foot Cellulitis of left foot Deformity of toe of left foot Diabetes mellitus with diabetic polyneuropathy Diabetic infection of left foot Pressure ulcer of toe of right foot, stage 2 Diabetic foot ulcer associated with type 2 diabetes mellitus [id number] Chief Complaint PSORIATIC ARTHRITIS CELLULITIS Cellulitis Cellulitis [...] ulcer associated with type 2 diabetes mellitus [id number] Chief Complaint PSORIATIC ARTHRITIS CELLULITIS Cellulitis Cellulitis [...] ulcer associated with type 2 diabetes mellitus [id number] Chief Complaint CELLULITIS Cellulitis Cellulitis Cellulitis PSORIATIC [...] ulcer associated with type 2 diabetes mellitus [id number] Chief Complaint PSORIATIC ARTHRITIS 2 ORDERING DOCTORS [...] gi bleed June 21, 2025 3:5 0pm Chief Complaint Admit Date 6 M FU March 08, 2025 11: [...] gi bleed June 21, 2025 3:5 0pm [id number] PANCREATITIS June 11:11pm Reason for Referral Specialty Diagnoses / Procedures Referred By Vanesa shultz Referred To Contact Diagnoses Psoriatic arthritis 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 Long-term current use of high risk medication other than anticoagulant Methotrexate, fpc, current use Other emt intermediate (current) drug therapy Cervical disc disorder Cervical disc disorder, unspecified, unspecified cervical region Primary osteoarthritis of both knees Seborrheic eczema Eczema, unspecified type Encounter for long-term (current) use of non-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 anti-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 Osteoarthritis of both knees, unspecified osteoarthritis type Coco Shah Jr., DO [address] [place] [id number] Referral ID Status Reason Start Date Expiration Date Visits Re quested Visits Authorized [id number] Closed 1 1 Specialty Diagnoses / Procedures Referred By Vanesa shultz Referred To Contact Diagnoses Psoriatic arthritis Psoriatic arthritis mutilans Encounter for long-term (current) use of non-steroidal anti-inflammatories Long-term current use of high risk medication other than anticoagulant Other fpc (current) drug therapy Cervical disc disorder Cervical disc disorder, unspecified, unspecified cervical region Primary osteoarthritis of both knees 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 Methotrexate, fpc, current use Seborrheic eczema Eczema, unspecified type 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 Osteoarthritis of both knees, unspecified osteoarthritis type Coco Shah Jr., DO [address] [place] [address] Referral ID Status Reason Start Date Expiration Date V isits Requested Visits Authorized [id number] Pending Review 1 1 Additional Source Comments (unrecognized sect ion and content) No Status Records FoundNo Status Records FoundNo Status Records FoundNo Status Records FoundNo Status Records FoundNo Status Records FoundNo Status Records Found INFORMATION SOURCE (unrecogn ized section and content) DATE CREATED AUTHOR 05/10/2018 [facility] DATE CREATED AUTHOR AUTHOR'S ORGANIZ ATION 03/10/2023 [facility] ([place]) DATE CREATED AUTHOR AUTHOR'S ORGANIZ ATION 03/28/2023 Rodney Connelljames [facility] DATE CREATED AUTHOR AUTHOR'S ORGANIZ ATION 05/04/2023 [facility] DATE CREATED AUTHOR AUTHOR'S ORGANIZ ATION 06/03/2025 [facility] DATE CREATED AUTHOR AUTHOR'S ORGANIZ ATION 06/14/2025 [facility] DATE CREATED AUTHOR AUTHOR'S ORGANIZ ATION 06/28/2025 [facility] Reason for Visit (unrecogniz ed section and [...] infusions are working. 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 Patient states is having pain in the knees constantly. Having issues with balance. Reason Comments New Patient Ref- D[facility] 09/07/24; BUN 2 6, [...] Asteatosis cutis Actinic keratosis Other proteinuria Other emt intermediate (current) drug therapy On statin therapy Methotrexate, fpc, current use Nocturia Long-term current use of high risk medication other than anticoagulant penitentiary use of drug Infliximab (Remicade) long-term use History of osteomyelitis History of malignant neoplasm of skin Difficulty in urination Current use of emt intermediate anticoagulation Abnormal renal function test Psoriatic arthritis shirley Shah Jr., Coco Carter DO [address] [place] [id number] Phone: tel: fax: Christina Cartagena MD [address] [place] [address] Phone: tel: fax: Referral ID Status Reason Start Date Expiration Date Visits Re quested Visits Authorized [id number] Closed 01/25/2025 02/19/2026 1 1 Reason Comments [...] Care Teams (unrecognized sec tion and content) Machinist 2Nd Shift Relationship Specialty Start Date End Date Zach Turner MD [address] [place] [address] PCP - General Family Medicine 04/18/17 Machinist 2Nd Shift Relationship Specialty Start Date End Date Zach Turner MD [address] [place] [address] PCP - General Family Medicine 04/18/17 Team Status: Active Member Role Status Dates Dr. Zach Turner MD Family Provider Active Dr. Zach Turner MD Primary Care Provider Active Team Status: Inactive Member Role Status Dates Dr. Zach Turner MD Primary Care Provider, Referring P royoselin Active Alireza Grace PA, PA Attending Provider Active Team Status: Active Member Role Status Dates Dr. Zach Turner MD Primary Care Provider Active Tanesha Alva MECHANICAL TECHNICAL SERVICE SPECIALIST, MECHANICAL TECHNICAL SERVICE SPECIALIST-C Attending Provider, Other Pro vider Active Team Status: Active Member Role Status Dates Dr. Zach Turner MD Primary Care Provider Active Tanesha Alva MECHANICAL TECHNICAL SERVICE SPECIALIST, MECHANICAL TECHNICAL SERVICE SPECIALIST-C Attending Provi villa, Referring Provider, Other Provider Active Team Status: Inactive Member Role Status Dates Dr. Zach Turner MD Primary Care Provider Active Dr. Coco Shah Jr., MD Attending Provider, Ref erring Provider Active Team Status: Inactive Member Role Status Dates Dr. Zach Turner MD Primary Care Provider Active Tanesha Alva MECHANICAL TECHNICAL SERVICE SPECIALIST, MECHANICAL TECHNICAL SERVICE SPECIALIST-C Attending Provider Active Team Status: Inactive Member Role Status Dates Dr. Zach Turner MD Primary Care Provide r, Attending Provider, Referring Provider Active Team Status: Inactive Member Role Status Dates Dr. Zach Turner MD Primary Care Provider Active Tanesha Alva MECHANICAL TECHNICAL SERVICE SPECIALIST, MECHANICAL TECHNICAL SERVICE SPECIALIST-C Attending Provider, Referring Provider Active Team Status: Active Member Role Status Dates Dr. Zach Turner MD Primary Care Provider Active Tanesha Alva MECHANICAL TECHNICAL SERVICE SPECIALIST, MECHANICAL TECHNICAL SERVICE SPECIALIST-C Attending Provider, Referring Provider Active Team Status: Active Member Role Status Dates Dr. Zach Turner MD Primary Care Provider Active Dr. Coco Shah Jr., MD Attending Provider, Ref erring Provider Active Team Status: Inactive Member Role Status Dates Dr. Zach Turner MD Primary Care Provider Active Tanesha Alva MECHANICAL TECHNICAL SERVICE SPECIALIST, MECHANICAL TECHNICAL SERVICE SPECIALIST-C Other Provider Active Dr. Chevy Bautista DPM Attending Provider, Referri ng Provider Active Team Status: Active Member Role Status Dates Dr. Zach Turner MD Primary Care Provider Active Dr. Patrick Rojas DPM Attending Provider Active Team Status: Active Member Role Status Dates Dr. Zahc Turner MD Primary Care Provider Active Dr. [...] Turner MD Primary Care Provider, Attending P chaz Active Team Status: Active Member Role Status Dates Dr. Zcah Turner MD Primary Care Provider Active Dr. Patrick Rojas DPM Attending Provider, Referring Pr ovider Active Team Status: Active Member Role Status Dates Dr. Zach Turner MD Primary Care Provider Active Self Referred Attending Provider Active Team Status: Inactive Member Role Status Dates Dr. Zach Turner MD Primary Care Provider Active Self Referred Attending Provider Active Machinist 2Nd Shift Relationship Specialty Start Date End Date Zach Turner MD [address] [place] [address] PCP - General Family Medicine 04/18/17 Team Status: Inactive Member Role Status Dates Dr. Coco Shah Jr., MD Attending Provider, Ref erring Provider Active Dr. Zach Turner MD Primary Care Provider Active Machinist 2Nd Shift Relationship Specialty Start Date End Date Zach Turner MD [address] [place] [address] PCP - General Family Medicine 04/18/17 Machinist 2Nd Shift Relationship Specialty Start Date End Date Zach Turner MD [address] [place] [address] PCP - General Family Medicine 04/18/17 Machinist 2Nd Shift Relationship Specialty Start Date End Date Zach Turner [address] [place] [address] PCP - General Family Medicine 07/11/24 Machinist 2Nd Shift Relationship Specialty Start Date End Date Zach Turner [address] [place] [address] PCP - General Family Medicine 07/11/24 Machinist 2Nd Shift Relationship Specialty Start Date End Date Zach Turner [address] [place] [address] PCP - General Family Medicine 07/11/24 Machinist 2Nd Shift Relationship Specialty Start Date End Date Zach Turner [address] [place] [address] PCP - General Family Medicine 07/11/24 Machinist 2Nd Shift Relationship Specialty Start Date End Date Zach Turner MD [address] [place] [address] PCP - General Family Medicine 04/18/17 Team [...] February 21, 2025 End: February 21, 2025 Machinist 2Nd Shift Relationship Specialty Start Date End Date Zach [...] 15, 2025 End: April 17, 2025 Dr. Ccoo Pepe MD Admit Provider Active Star t: [...] Activ e Start: April 17, 2025 Dr. oCco Pepe MD Admit Provider Active Star t: [...] Active Star t: April 17, 2025 Dr. Latoina Berry MD Other Provider Active Start: April 17, 2025 Team Status: Inactive Member Role/Relationship Status Dates Dr. Zach Turner MD Primary Care Provider Active Start: May 14, 2025 End: May 14, 2025 Dr. Latonia Berry MD Attending Provider Active Start: May 14, 2025 End: May 14, 2025 Dr. Latonia Berry MD Referring Provider Active Start: May 14, 2025 End: May 14, 2025 Machinist 2Nd Shift Relationship Specialty Start Date End Date Zach [...] Provider Acti ve Start: May 28, 2025 Machinist 2Nd Shift Relationship Specialty Start Date End Date Zach [...] June 07, 2025 End: June 07, 2025 Machinist 2Nd Shift Relationship Specialty Start Date End Date Zach Turner [address] [facility] [address] [place] [address] PCP - General Family Medicine 07/11/24 Team [...] June 21, 2025 End: June 21, 2025 Team Status: Inactive Member Role/Relationship [...] Star t: April 17, 2025 Dr. Coco Ppee MD Attending Provider Active Start: April 17, [...] May 14, 2025 End: May 14, 2025 Team Status: Inactive Member Role/Relationship Status Dates Dr. Zach Turner MD Primary Care Provider Active Start: May 24, 2025 End: May 24, 2025 Dr. Memo Hernández MD Attending Provider Active Start: May 24, 2025 End: May 24, 2025 Dr. Memo Hernández MD Referring Provider Active Start: May 24, 2025 End: May 24, 2025 Team Status: Inactive Member Role/Relationship Status Dates Dr. Zach Turner MD Primary Care Provider Active Start: May 28, 2025 End: June 13, 2025 Dr. Coco Shah Jr., MD Attending Provider Acti ve Start: May 28, 2025 End: June 13, 2025 Dr. Coco Shah Jr., MD Referring Provider Acti ve Start: May 28, 2025 End: June 13, 2025 Team Status: Inactive Member Role/Relationship Status Dates Dr. Zach Turner MD Primary Care Provider Active Start: June 07, 2025 End: June 07, 2025 Dr. Coco Shah Jr., MD Attending Provider Acti ve Start: June 07, 2025 End: June 07, 2025 Dr. Coco Shah Jr., MD Referring Provider Acti ve Start: June 07, 2025 End: June 07, 2025 Team Status: Active Member Role/Relationship Status [...] June 21, 2025 Dr. Edgar Gudino DO Attending Provider Activ e Start: June 21, 2025 End: June 21, 2025 Dr. Edgar Gudino DO Emergency Provider Activ e Start: June 21, 2025 End: June 21, 2025 Team Status: Active Member Role/Relationship Status Dates Dr. Zach Turner MD Primary Care Provider Active Start: June 28, 2025 Dr. Miguelangel Velasquez MD Attending Provider Active Start: June 28, 2025 Team Status: Active Member Role/Relationship Status Dates Dr. Zach Turner MD Primary Care Provider Active Start: June 28, 2025 Dr. Martha Anaya MD Emergency Provider Active S tart: June 28, 2025 Dr. Coco de Sd , DO Admit Provider Active Start: June 28, 2025 Dr. Coco Herman , DO Attending Provider Active Start: June 28, 2025 FOR RECORDS PERTAINING TO PATIENTS WHO [...] BE BASED ON THE PRIMARY CLINICAL RECORDS. [facility]. provides no warranty or guarantee of the accuracy or completeness of information in this document.
--- NOTE | 2025-06-29 06:12 | EKG12_ITS ---
Test Reason : P Blood Pressure : */* mmHG Vent. Rate : 75 BPM Atrial Rate : * BPM P-R Int : * ms QRS Dur : 96 ms QT Int : 390 ms P-R-T Axes : * 43 54 degrees QTcB Int : 435 ms Atrial fibrillation Abnormal ECG When compared with ECG of 26-Feb-2021 11:39, Atrial fibrillation has replaced Sinus rhythm Confirmed by MORE BENITEZ, RENEE ([id number]), news editor CARMEN MATUTE ([id number]) on 07/02/2025 6:15:30 AM Referred By: Confirmed By: RENEE AGUERO MD
--- NOTE | 2025-06-29 09:05 | CASEMGMT ---
RN CM Face to Face with patient for initial transition planning/care coordination assessment. RN CM introduced self and role at [facility]. Patient lying in bed, alert and oriented. Patient willing to participate in assessment and is able to answer all questions appropriately. Care providers, pharmacy, and demographics verified. Strata:3 PCP: Johnny Specialists: Pablo, environmental health technician [place]; Kevin Cartagena, playground aide [place]; Abdirahman machine records units supervisor; Edgar, urologist; Preferred [facility]acy: [facility] [place] Insurance: [facility], [place] Prescription Benefit: yes Living Will/HPOA: none LNOK: Living Arrangements: Patient lives with in single story [facility] with 1 step and grab bar to enter. Patient states he is independent at home. Transportation: self, DME/HHC: Patient states he has access to cane, walker, grab bars, glucometer with supplies at home. No previous HHC or SNF. Patient wishes to discharge home, denies need for home health at this time. Patient states he has no further needs or concerns at this time. CM to follow for discharge planning needs that may arise. Disposition Plan: Patient to discharge home with family support and follow-up plans in place. Sherita GILLILAND, RN, CM
--- NOTE | 2025-06-29 10:26 | PCM.PN.HOSP ---
Subjective Subjective Doing well with minimum abdominal pain Objective Data Objective Data Vital Signs: Vital Signs Temp Pulse Resp BP Pulse Ox O2 Del Method 98.1 F 74 16 116/69 97 Room Air 06/29/25 08:10 06/29/25 08:10 06/29/25 08:10 06/29/25 08:10 06/29/25 08:23 06/29/25 08:23 Oxygen Delivery Method Room Air Weight: 174 lb 6.17 oz Body Mass Index (BMI) 23.6 Intake & Output: Intake and Output for Last 24 Hours 06/28/25 06/29/25 06/30/25 03:59 03:59 03:59 Intake Total 1250 / 1250 100 / 100 Balance 1250 / 1250 100 / 100 Lab / Micro Data 06/28/25 23:42 06/28/25 23:43 Labs: Laboratory Results - last 24 hr 06/28/25 23:35: Urine Color Straw, Urine Clarity Clear, Urine pH 6.0, Ur Specific [place] 1.010, Urine Protein 30 H, Urine Glucose (UA) 1000 H, Urine Ketones Negative, Urine Occult Blood 10 H, Urine Nitrite Negative, Urine Bilirubin Negative, Urine Urobilinogen Normal, Ur Leukocyte Esterase Negative, Urine RBC 0 SEEN, Urine WBC 0-5 SEEN, Ur Squamous Epith Cells 0-5 SEEN, Urine Bacteria 0 SEEN, Urine Mucus 0 SEEN, Ethyl Alcohol < 10.1 06/28/25 23:42: WBC 8.1, RBC 4.28 L, Hgb 14.6, Hct 39.9 L, MCV 93.2, MCH 34.1 H, MCHC 36.6 H, RDW Std Deviation 42.5, RDW Coeff of Jaimee 13.2, Plt Count 260, MPV 10.2, Immature Gran % (Auto) 1.100 H, Neut % (Auto) 52.0, Lymph % (Auto) 28.1, [place] % (Auto) 10.6 H, Eos % (Auto) 7.8 H, Baso % (Auto) 0.4, Absolute Neuts (auto) 4.2, Absolute Lymphs (auto) 2.27, Nucleated RBC % 0 06/28/25 23:43: Sodium 138, Potassium 3.9, Chloride 102, Carbon Dioxide 21.0, Anion Gap 14, BUN 22 H, Creatinine 1.43 H, Estim Creat Clear Calc 43.71 L, Est GFR (MDRD) Non-Af 49 L, BUN/Creatinine Ratio 15.6, Glucose 141 H, Calcium 9.7, Phosphorus 3.5, Magnesium 2.1, Total Bilirubin 0.60, AST 47 H, ALT 61 H, Alkaline Phosphatase 103, Total Protein 7.7, Albumin 4.0, Globulin 3.8, Albumin/Globulin Ratio 1.1, Lipase 2184 H 06/29/25 00:48: POC Glucose 130 H 06/29/25 05:03: TSH 2.240 06/29/25 06:30: POC Glucose 168 H Radiography Diagnostic Testing: Radiology Impression Abdomen/Pelvis CT 06/28/25 21:40 IMPRESSION: Sequelae of chronic pancreatitis with multiple parenchymal calcifications. Redemonstrated prominent 12 mm stone in the region of the pancreatic head which appears to be obstructing at the confluence of the main pancreatic duct and CBD, with interval increased pancreatic ductal dilatation. Probable additional small stone in the accessory pancreatic duct may also be obstructive. Mild peripancreatic fat infiltration/edema is suggestive of superimposed acute on chronic pancreatitis. Reading Location: [facility] Physical Exam Narrative General: Alert, Oriented x3, Cooperative, No apparent distress HEENT: Atraumatic, PERRLA, EOMI, Normocephalic Oral: Moist Mucosa Neck: Supple, No JVD Lungs: Diminished, Normal air movement, No rhonchi, No wheeze, No rales Cardiovascular: Regular rate, Regular Rhythm, Normal S1, Normal S2, No murmurs Abdomen: Soft, Non Tender, Non-Distended, No Hepato-splenomegaly Extremities: No edema, Capillary Refill Less than 3 Seconds Skin: No rashes, No breakdown Musculoskeletal: No Tenderness to Palpation of Joints or Extremities Neurological: No focal neurological deficits, Motor Exam 5/5 strength throughout, Sensory exam intact to light touch and pain Psych/Mental Status: Normal Affect, Appropriate Assessment & Plan Assessment/Plan (1) Acute on chronic pancreatitis: (2) Abdominal pain: QUALIFIERS: Abdominal location: lower abdomen, unspecified Qualified Code(s): R10.30 - Lower abdominal pain, unspecified (3) 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 PLAN: Plan 1. Acute on chronic pancreatitis with a 12 mm duct stone/recent bright red blood per rectum ? Appreciate GIs assistance plan for ERCP today ? N.p.o. ? Pain meds and Zofran ? She is on aztreonam and Flagyl as prophylaxis, once the stone is bypassed or removed can discontinue ? Can restart Eliquis after procedure ? His hemoglobin is stable and with the ERCP will evaluate his upper GI tract, no further interventions for his bright red blood per rectum is necessary at this time ? PT/OT 2. Essential HTN/HLD/A-fib ? Can resume his Eliquis after ERCP ? Continue with his home blood pressure medications ? Continue with his home cholesterol medications ? Will monitor and make adjustments as necessary ? He does have hydralazine as needed while he is still n.p.o. 3. DM2 ? Hold his home medications ? N.p.o. currently ? Accu-Cheks every 6 ? Continue sliding scale insulin?will monitor make adjustments as necessary 4. Psoriatic arthritis ? He is on methotrexate at home ? Can hold these until discharge 5. Asthma ? Not in exacerbation ? Continue with as needed nebulizers 6. BPH ? Stable ? Continue with his home medications when taking p.o. DVT: SCDs Charges/Coding Visit Charges Inpatient E&M: 86146 Subs Hosp L2
[2025-06-29] MEDS: Hydrocortisone 2.5% Crm 1 APPLIC TOPICAL ×2 (10:45→22:30)
[2025-06-29] MEDS: Latanoprost 0.005% 1 Bottle 1 DRP OPHTHALMIC (10:48)
--- NOTE | 2025-06-29 13:07 | EX.PCM.CON.G ---
HPI Consult Data Date of Consult: 06/29/25 HPI Narrative Reason for Consultation: Pancreatitis HPI Narrative: YESSI GRACE, is a 80 M who presented to the ED with worsening abdominal pain. He was here about a week ago for evaluation of bright red blood per rectum. Patient states he has a history of constipation. He had been constipated for the past 4 days. He stated that he sat on the toilet for approximately 1 hour and when he had a bowel movement with bright red blood per rectum. States after that he had multiple episodes of bright red blood per rectum. He did endorse abdominal cramping. He denied any fever, chills, shortness of breath, chest pain, nausea, vomiting, dysuria. No history of diverticulosis or colitis. States his last colonoscopy was years ago in [place] that was unremarkable. He has a past medical history of atrial fibrillation on Eliquis, DM, arthritis and is hard of hearing. Today, he was told that his lipase was elevated and to come to the ED. He denies fever, chills, chest pain, worsening shortness of breath, nausea, vomiting, diarrhea, dysuria or hematuria. He endorses abdominal pain. Denies any alcohol use. Denies any history of pancreatitis. His lipase was discovered to be in a [address]. [address] scan of the abdomen pelvis: sequelae of chronic pancreatitis with multiple scattered parenchymal calcifications. Unchanged prominent 12 mm stone in the region of the pancreatic head which appears to be within the confluence of the main pancreatic duct and CBD, likely obstructive with upstream prominent dilatation of the pancreatic duct, with the degree of ductal dilatation increased from prior exam. Additionally there is a small calculus in the region of the accessory pancreatic duct which also may be obstructive. There is mild subtle peripancreatic fat infiltration/edema, suggesting mild acute on chronic pancreatitis. [facility] Medical History Kidney disease GERD (gastroesophageal reflux disease) Former smoker Hypertension Hypertension, well controlled Amputation toe Cataract Glaucoma CPAP (continuous positive airway pressure) dependence Sleep apnea Asthma Atrial fibrillation Nonhealing nonsurgical wound with fat layer exposed Essential hypertension RAJESH (obstructive sleep apnea) Ectopic atrial tachycardia Paroxysmal ventricular tachycardia Premature atrial contractions Cellulitis Psoriasis Arthritis Shortness of breath Hyperlipidemia Hypertension Premature ventricular contraction Supraventricular tachycardia Long-term use of high-risk medication Body mass index 31.0-31.9, adult Diabetes mellitus Secondary pulmonary arterial hypertension Methicillin susceptible Staphylococcus aureus infection Acute osteomyelitis involving ankle and foot Chronic osteomyelitis involving ankle and foot Home Medications ?Medication ?Instructions ?Recorded ?Last Taken ?Type finasteride 5 mg tablet 5 mg PO DAILY prostate 02/03/16 06/21/25 History tamsulosin 0.4 mg capsule 0.4 mg PO QHS prostate 02/03/16 06/20/25 History fluticasone propionate 50 2 spray NASAL DAILY PRN Nasal 06/30/18 04/15/25 History mcg/actuation nasal Congestion spray,suspension methotrexate sodium 2.5 mg tablet 7.5 mg PO Q7D arthritis 06/30/18 06/19/25 History pyridoxine (vitamin B6) 50 mg 100 mg PO QHS supplement 06/30/18 06/20/25 History tablet oxybutynin chloride 5 mg 5 mg PO QHS bladder 10/20/18 06/20/25 History tablet,extended release 24 hr folic acid 1 mg tablet 4 mg PO DAILY supplement 06/01/19 04/15/25 History glucosamine HCl 1,500 mg tablet 1,500 mg PO BID supplemt 02/20/20 06/21/25 History infliximab-dyyb 100 mg intravenous 100 mg IV UD psoriatic arthritis 05/30/20 06/07/25 History solution (Inflectra) cyanocobalamin (vitamin B-12) 100 500 mcg PO DAILY supplement 12/01/20 06/21/25 History mcg tablet cholecalciferol (vitamin D3) 25 25 mcg PO DAILY supplement 06/20/24 06/21/25 History mcg (1,000 unit) tablet ginkgo biloba leaf extract 60 mg 60 mg PO DAILY 06/20/24 06/21/25 History capsule glipizide 10 mg tablet 10 mg PO DAILY dm 06/20/24 04/15/25 History Held on 06/21/25. Instructions: MD Ordered vitamins A,C,J-dnrb-ecrxka 4,296 1 cap PO QDAY 03/08/25 06/21/25 History mcg-226 mg-90 mg capsule (PreserVision AREDS) apixaban 5 mg tablet (Eliquis) 2.5 mg PO BID 04/15/25 06/21/25 History Held on 06/28/25. Instructions: GI Bleed multivitamin (Daily Multi-Vitamin 1 tab PO DAILY 04/15/25 06/21/25 History tablet) acetaminophen 325 mg tablet 650 mg (2 x 325 mg) PO Q6H PRN PRN 04/17/25 Unknown Rx Pain 1-10 Or Fever >100.7 #0 tabs pravastatin 40 mg tablet 40 mg PO QHS cholesterol #90 tabs 05/15/25 06/20/25 Rx amlodipine 2.5 mg tablet 2.5 mg PO DAILY 06/21/25 06/21/25 History bimatoprost 0.01 % eye drops 1 drp ophthalmic (eye) DAILY 06/21/25 06/21/25 History (Lumigan) carvedilol 25 mg tablet 25 mg PO BID 06/21/25 06/21/25 History empagliflozin 10 mg tablet 10 mg PO DAILY 06/21/25 06/21/25 History (Jardiance) fluocinolone 0.01 % topical body 1 applic topical BID 06/21/25 06/21/25 History oil Lactobacillus acidophilus 1 cap PO BID 06/28/25 Unknown History (Acidophilus capsule) potassium chloride 20 mEq 20 meq PO DAILY 06/28/25 Unknown History tablet,extended release(part/cryst) spironolactone 25 1 tab PO DAILY 06/28/25 Unknown History mg-hydrochlorothiazide 25 mg tablet Allergy/AdvReac Type Severity Reaction Status Date / Time cephalexin (From Keflex) Allergy Severe rash Verified 06/28/25 19:02 sulfamethoxazole (From Allergy Severe Rash Verified 06/28/25 19:02 Bactrim) trimethoprim (From Bactrim) Allergy Severe Rash Verified 06/28/25 19:02 cefdinir Allergy Mild Abd Verified 06/28/25 19:02 cramps/diarrhea Penicillins Allergy Rash Verified 06/28/25 19:02 doxycycline AdvReac Severe GI upset Verified 06/28/25 19:02 levofloxacin (From Levaquin) AdvReac Other Verified 06/28/25 19:02 Family History Father Cancer Prostate Mother Depression Uncle Myocardial infarction Son CVA (cerebral vascular accident) Surgical History History of bilateral cataract extraction History of foot surgery (~02/2023) excision of skin cancer History of hammer toe correction (09/26/20) History of partial amputation of toe History of hernia repair History of tonsillectomy and adenoidectomy Social History Smoking Status: Former smoker pack-years: 30 alcohol intake: current alcohol intake frequency: holidays/special occasions only substance use type: does not use caffeine: Yes Type: coffee Number of servings: 2 what type of physical activity do you participate in: running and weight training frequency: 1-2 times per week ROS ROS Narrative Review of Systems: Constitutional: Patient denies fever or chills. Eyes: Patient denies changes in vision or discharge from eyes. ENT: Patient denies runny nose, sore throat or ear pain. Resp: Patient denies shortness of breath or cough. CV: Patient denies chest pain, palpitations or heart racing. GI: Patient admits to mild lower abdominal pain with constipation as per HPI. He denies nausea, vomiting or diarrhea. : Patient denies dysuria or hematuria. MSK: Patient admits to generalized weakness but he denies arthralgias or myalgias. Skin: Patient denies rash, abscess, wounds or jaundice. Psych: Patient denies symptoms uncontrolled depression or anxiety. Neuro: Patient denies headache, paresthesias or focal neurologic deficits. Allergy: Patient denies lip swelling, tongue swelling or urticaria. Hematology: Patient admits to recent BRBPR on June 21, 2025 with ER visit that day as per HPI. Endocrinology: Patient denies polyuria, polydipsia, polyphagia or heat/cold intolerance. 14 point ROS otherwise negative except for positives noted above in HPI. Physical Exam Const alert, oriented x3, no apparent distress and healthy appearing General Appearance: cooperative GI normal to inspection, nondistended, normoactive bowel sounds, soft to palpation, non-tender and non-distended Percussion: normal to percussion Rectal Exam: deferred Lab / Micro Data 06/28/25 23:42 06/28/25 23:43 Labs: Laboratory Results - last 24 hr 06/28/25 23:35: Urine Color Straw, Urine Clarity Clear, Urine pH 6.0, Ur Specific [place] 1.010, Urine Protein 30 H, Urine Glucose (UA) 1000 H, Urine Ketones Negative, Urine Occult Blood 10 H, Urine Nitrite Negative, Urine Bilirubin Negative, Urine Urobilinogen Normal, Ur Leukocyte Esterase Negative, Urine RBC 0 SEEN, Urine WBC 0-5 SEEN, Ur Squamous Epith Cells 0-5 SEEN, Urine Bacteria 0 SEEN, Urine Mucus 0 SEEN, Ethyl Alcohol < 10.1 06/28/25 23:42: WBC 8.1, RBC 4.28 L, Hgb 14.6, Hct 39.9 L, MCV 93.2, MCH 34.1 H, MCHC 36.6 H, RDW Std Deviation 42.5, RDW Coeff of Jaimee 13.2, Plt Count 260, MPV 10.2, Immature Gran % (Auto) 1.100 H, Neut % (Auto) 52.0, Lymph % (Auto) 28.1, Yell % (Auto) 10.6 H, Eos % (Auto) 7.8 H, Baso % (Auto) 0.4, Absolute Neuts (auto) 4.2, Absolute Lymphs (auto) 2.27, Nucleated RBC % 0 06/28/25 23:43: Sodium 138, Potassium 3.9, Chloride 102, Carbon Dioxide 21.0, Anion Gap 14, BUN 22 H, Creatinine 1.43 H, Estim Creat Clear Calc 43.71 L, Est GFR (MDRD) Non-Af 49 L, BUN/Creatinine Ratio 15.6, Glucose 141 H, Calcium 9.7, Phosphorus 3.5, Magnesium 2.1, Total Bilirubin 0.60, AST 47 H, ALT 61 H, Alkaline Phosphatase 103, Total Protein 7.7, Albumin 4.0, Globulin 3.8, Albumin/Globulin Ratio 1.1, Lipase 2184 H 06/29/25 00:48: POC Glucose 130 H 06/29/25 05:03: TSH 2.240 06/29/25 06:30: POC Glucose 168 H Imaging Radiology Impression Abdomen/Pelvis CT 06/28/25 21:40 IMPRESSION: Sequelae of chronic pancreatitis with multiple parenchymal calcifications. Redemonstrated prominent 12 mm stone in the region of the pancreatic head which appears to be obstructing at the confluence of the main pancreatic duct and CBD, with interval increased pancreatic ductal dilatation. Probable additional small stone in the accessory pancreatic duct may also be obstructive. Mild peripancreatic fat infiltration/edema is suggestive of superimposed acute on chronic pancreatitis. Reading Location: [id number] Assessment & Plan Assessment/Plan (1) 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 (2) Abdominal pain: QUALIFIERS: Abdominal location: lower abdomen, unspecified Qualified Code(s): R10.30 - Lower abdominal pain, unspecified (3) Acute on chronic pancreatitis: PLAN: Plan 80 yo with persistent upper left quadrant abdominal pain radiating to the back. Associated with nausea and occasional jaundice. The pain is currently rated as 6/10, The patient reports a 3-week history of intermittent worsening epigastric pain that was initially intermittent but is now continuous. The pain is accompanied by nausea and He has experienced associated constipation. He is a newly diagnosed chronic pancreatitis with imaging showing calcifications and cystic changes in the pancreas. He is a diabetic, nonsmoker and nonalcoholic.?Mild epigastric tenderness and jaundice observed. Laboratory Findings:?Elevated serum amylase and lipase and a low white blood cell count . Fecal tests should indicate pancreatic exocrine insufficiency. CT Scan:?Can reveal calcified stones in the main pancreatic duct, pancreatic atrophy, and cystic changes. 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 Differential Diagnoses:?Include gallstones, pancreatic cancer, and other causes of biliary obstruction. Problem List:?Includes pancreatic stones in the main duct, obstructive chronic pancreatitis, acute exacerbations, pancreatic pseudocyst, jaundice, and potential pancreatic exocrine insufficiency. Plan Management Goals:?Aim to relieve pain, remove stones, decompress the pancreatic duct, manage complications, and potentially improve pancreatic function. Treatment Options: Endoscopic Retrograde Cholangiopancreatography (ERCP):?Used for stone extraction, but may require fragmentation first. Risks like post-ERCP pancreatitis should be considered, especially in elderly patients according to National Institutes of Health (NIH) (.gov). Extracorporeal Shock Wave Lithotripsy (ESWL):?A non-invasive method to fragment stones, often combined with ERCP. It's generally safe for the elderly, but post-ESWL pancreatitis is a risk. . Pancreatic Stenting:?Can help relieve pain and aid later stone removal . Surgical Options:?If other treatments fail, procedures like pancreaticoduodenectomy or drainage may be considered, though age increases surgical risks Medical Management:?Focuses on pain control, enzyme supplements, and diet. Medical therapy cannot dissolve the stones. Charges/Coding Visit Charges Inpatient E&M: 52177 Init Hosp L3
[2025-06-29] MEDS: 0.9% Saline Lock 10 ML Syringe IV (14:51)
--- NOTE | 2025-06-29 14:53 | PRE.ANES_ITS ---
ASA Classification* ASA Classification ASA Classification: 3 Assessment & Plan Anesthesia* Anesthesia Assessment Anesthesia Assessment: Discussed sedation and/or anesthesia options, risks, benefits, and alternatives with patient/parents/legal guardian/POA. Questions invited. The patient/parents/legal guardian/POA seems to understand and agrees to proceed with anesthesia plan. Reviewed the physical assessment, medical history, allergy history and patient home medications list prior to surgery/procedure/anesthetic and documented any changes. Performed airway and anesthesia risk assessments. Anesthesia Type Anesthesia Type: General History Source History Obtained from:: Patient and Chart Anesthesia Focused Assessment* Temperature: 98.1 F Pulse Rate: 74 Blood Pressure: 137/76 Respiratory Rate: 14 Pulse Ox: 100 Oxygen Delivery Method: Room Air Airway Assessment Mouth opens: >3 cm Mallampati Score: I Teeth Condition: Dentures Neck Range of motion (ROM): Limited ROM Labs Anesthesia Preop lab: CBC WBC 8.1 K/mm3 (4.4-11.0) 06/28/25 23:42 06/28/25 RBC 4.28 M/mm3 (4.6-6.2) L 06/28/25 23:42 06/28/25 Hgb 14.6 g/dL (13.0-16.5) 06/28/25 23:42 06/28/25 Hct 39.9 % (40-54) L 06/28/25 23:42 06/28/25 Plt Count 260 K/mm3 (150-450) 06/28/25 23:42 06/28/25 CHEMISTRY Potassium 3.9 mmol/L (3.3-5.1) 06/28/25 23:43 06/28/25 Sodium 138 mmol/L (133-145) 06/28/25 23:43 06/28/25 Magnesium 2.1 mg/dL (1.5-2.2) 06/28/25 23:43 06/28/25 Phosphorus 3.5 mg/dL (2.7-4.5) 06/28/25 23:43 06/28/25 BUN 22 mg/dL (4-19) H 06/28/25 23:43 06/28/25 Creatinine 1.43 mg/dL (0.70-1.20) H 06/28/25 23:43 Glucose 141 mg/dL (70-99) H 06/28/25 23:43 06/28/25 POC Glucose 168 mg/dL (74-106) H 06/29/25 06:30 06/29/25 TSH 2.240 uIU/mL (0.300-4.200) 06/29/25 05:03 08/05/08 COAG Pre-Assessment Diagnosis/Proposed Procedure Planned Operative Procedure(s): ERCP Anesthesia History 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 When Was Last Pacemaker Check QUESTION #4 FULL TEXT: You/Your Family Experience fever (hyperthermia) with Anesthesia Last Oral Intake Last Oral intake: Last Oral Intake NPO since 00:00 06/29/25 08:18 Meds taken in AM with sips of water? 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 - service center manager: PONV - service center manager Female HX of Motion Sickness HX of N/V After Surgery Non-Smoker Duration of Surgery greater than 60 minutes Number of Risk Factors PONV Score Height & Weight Height & Weight: Anesthesia: Height & Weight Height 6 ft 06/29/25 08:18 Weight: 79.1 kg 06/29/25 08:18 Body Mass Index (BMI) 23.6 06/29/25 08:18 Respiratory Assessment Respiratory Assessment - service center manager: Respiratory Tract Infection Hx - service center manager Hx Respiratory Tract Infection No 06/29/25 08:23 STOP Sleep Apnea STOP Sleep Apnea - service center manager: STOP Sleep Apnea - service center manager Hx Hypertension Yes 06/29/25 10:23 Hx Sleep Apnea Yes 06/29/25 00:05 CPAP No 06/29/25 00:05 BIPAP No 06/29/25 00:05 Do you snore loudly (louder than talking or can be heard Do you often feel tired/ fatigued/ sleepy during daytime? Has anyone observed you stop breathing during sleep? STOP Results Positive 06/29/25 00:05 QUESTION #5 FULL TEXT : Do you snore loudly (louder than talking or can be heard through closed doors)? 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 Specify any problems Hx of Preganancy in last 3 No 06/29/25 00:05 Months Nurse Filling Out Transfusion DREDICK 06/29/25 00:05 & Questions: Date: 06/29/25 06/29/25 00:05 Time: 00:06 06/29/25 00:05 Patient unable to answer at this time (ie. confused, unrespo /Reproduction History /Reproductive History - service center manager: /Reproductive Hx- service center manager Hx Now Gestational Age (in weeks): EDC: Hx Hx Para Hx Section SAB Active Medications Active Medications: Current Medications Generic Name Dose Route Start Last Admin Trade Name Freq PRN Reason Stop Dose Admin Fluticasone Propionate 2 spray 06/28/25 23:57 Fluticasone 0.05% 1 [place] Nasal.Sry NASAL DAILY PRN Nasal Congestion Glucagon 1 mg 06/28/25 23:57 Glucagon 1 Mg/Ml Syringe IM X1 PRN HYPOGLYCEMIA Protocol Hydrocortisone 1 applic 06/29/25 10:00 06/29/25 10:45 Hydrocortisone 2.5% Crm TOPICAL [address] Administration Pantoprazole Sodium 40 mg/ 100 mls @ 330 mls/hr 06/28/25 23:57 06/29/25 01:39 Sodium Chloride IV Infused [address] Infusion Dextrose 250 mls @ 0 mls/hr 06/28/25 23:57 Dextrose 10%-Water IV .Q0M PRN HYPOGLYCEMIA Protocol As Directed Sodium Chloride 1,000 mls @ 100 mls/hr 06/28/25 23:57 06/29/25 10:43 IV 06/29/25 19:56 100 mls/hr .Q10H AVE Administration Aztreonam 1 gm/ Sodium 50 mls @ 150 mls/hr 06/28/25 23:57 06/29/25 11:04 Chloride IV Infused BID A[address] Infusion Metronidazole 500 mg in 100 mls @ 100 mls/hr 06/28/25 23:57 06/29/25 13:40 Flagyl IV 100 mls/hr TID AVE Administration Sodium Chloride 250 mls @ 15 mls/hr 06/28/25 23:58 IV .[id number] PRN Saline Flush Sodium Chloride 250 mls @ 15 mls/hr 06/28/25 23:58 IV .[id number] PRN Additional IVPB Infusion Insulin Human Lispro 0 unit 06/29/25 00:00 06/29/25 12:02 Insulin Lispro 100 Unit/Ml Insuln.Pen SC Not Given Q6 [facility] Protocol Ketorolac Tromethamine 15 mg 06/28/25 23:57 Ketorolac 15 Mg/Ml Vial IV 07/03/25 23:58 Q8H PRN PRN Pain 1-5/10 or Fever Latanoprost 1 drp 06/29/25 10:00 06/29/25 10:48 Latanoprost 0.005% [address]ALMIC [address] Administration Morphine Sulfate 2 mg 06/28/25 23:57 Morphine 2 Mg/Ml Syringe IV Q4H PRN PRN Pain Score 6-10 Ondansetron HCl 4 mg 06/28/25 23:57 Ondansetron 4 Mg/2 Ml Vial IV Q4H PRN PRN NAUSEA/VOMITING Sodium Chloride 10 - 40 ml 06/28/25 23:58 06/29/25 14:51 0.9% Saline Lock 10 Ml Syringe IV 10 ml UD PRN Administration SALINE FLUSH PFSH Medical History Kidney disease GERD (gastroesophageal reflux disease) Former smoker Hypertension Hypertension, well controlled Amputation toe Cataract Glaucoma CPAP (continuous positive airway pressure) dependence Sleep apnea Asthma Atrial fibrillation Nonhealing nonsurgical wound with fat layer exposed Essential hypertension RAJESH (obstructive sleep apnea) Ectopic atrial tachycardia Paroxysmal ventricular tachycardia Premature atrial contractions Cellulitis Psoriasis Arthritis Shortness of breath Hyperlipidemia Hypertension Premature ventricular contraction Supraventricular tachycardia Long-term use of high-risk medication Body mass index 31.0-31.9, adult Diabetes mellitus Secondary pulmonary arterial hypertension Methicillin susceptible Staphylococcus aureus infection Acute osteomyelitis involving ankle and foot Chronic osteomyelitis involving ankle and foot Home Medications ?Medication ?Instructions ?Recorded ?Last Taken ?Type finasteride 5 mg tablet 5 mg PO DAILY prostate 02/0206/21/25 History tamsulosin 0.4 mg capsule 0.4 mg PO QHS prostate 02/0206/20/25 History fluticasone propionate 50 2 spray NASAL DAILY PRN Nasa l 06/30/18 04/15/25 History mcg/actuation nasal Congestion spray,suspension methotrexate sodium 2.5 mg tablet 7.5 mg PO Q7D arthri tis 06/30/18 06/19/25 History pyridoxine (vitamin B6) 50 mg 100 mg PO QHS supplement 06/30/18 06/20/25 History tablet oxybutynin chloride 5 mg 5 mg PO QHS bladder 10/20/18 06/20/25 History tablet,extended release 24 hr folic acid 1 mg tablet 4 mg PO DAILY supplement 04/15/25 History glucosamine HCl 1,500 mg tablet 1,500 mg PO BID supple mt 02/20/20 06/21/25 History infliximab-dyyb 100 mg intravenous 100 mg IV UD psoria tic arthritis 05/30/20 06/07/25 History solution (Inflectra) cyanocobalamin (vitamin B-12) 100 500 mcg PO DAILY sup plement 12/01/20 06/21/25 History mcg tablet cholecalciferol (vitamin D3) 25 25 mcg PO DAILY supple ment 06/20/24 06/21/25 History mcg (1,000 unit) tablet ginkgo biloba leaf extract 60 mg 60 mg PO DAILY 06/21/25 History capsule glipizide 10 mg tablet 10 mg PO DAILY dm 06/20/24 0 04/15/25 History Held on 06/21/25. Instructions: MD Ordered vitamins A,C,X-rznx-kwtdzp 4,296 1 cap PO QDAY 03/08/2 5 06/21/25 History mcg-226 mg-90 mg capsule (PreserVision AREDS) apixaban 5 mg tablet (Eliquis) 2.5 mg PO BID 04/15/25 06/21/25 History Held on 06/28/25. Instructions: GI Bleed multivitamin (Daily Multi-Vitamin 1 tab PO DAILY 04/1506/21/25 History tablet) acetaminophen 325 mg tablet 650 mg (2 x 325 mg) PO Q6H PRN PRN 04/17/25 Unknown Rx Pain 1-10 Or Fever >100.7 #0 tabs pravastatin 40 mg tablet 40 mg PO QHS cholesterol #90 tabs 05/15/25 06/20/25 Rx amlodipine 2.5 mg tablet 2.5 mg PO DAILY 06/21/2507/08 History bimatoprost 0.01 % eye drops 1 drp ophthalmic (eye) DA AMALIA 06/21/25 06/21/25 History (Lumigan) carvedilol 25 mg tablet 25 mg PO BID 06/21/25 History empagliflozin 10 mg tablet 10 mg PO DAILY 06/21/2507/08 History (Jardiance) fluocinolone 0.01 % topical body 1 applic topical BID 06/21/25 06/21/25 History oil Lactobacillus acidophilus 1 cap PO BID 06/28/25 Unknow n History (Acidophilus capsule) potassium chloride 20 mEq 20 meq PO DAILY 06/28/25 Unk nown History tablet,extended release(part/cryst) spironolactone 25 1 tab PO DAILY 06/28/25 Unkn own History mg-hydrochlorothiazide 25 mg tablet Allergy/AdvReac Type Severity Reaction Status Date / Time cephalexin (From Keflex) Allergy Severe rash Verified 06/28/25 19:02 sulfamethoxazole (From Allergy Severe Rash Verified 06/28/25 19:02 Bactrim) trimethoprim (From Bactrim) Allergy Severe Rash Verified 06/28/25 19:02 cefdinir Allergy Mild Abd Verified 06/28/25 19:02 cramps/diarrhea Penicillins Allergy Rash Verified 06/28/25 19:02 doxycycline AdvReac Severe GI upset Verified 06/28/25 19:02 levofloxacin (From Levaquin) AdvReac Other Verified 06/28/25 19:02 Family History Father Cancer Prostate Mother Depression Uncle Myocardial infarction Son CVA (cerebral vascular accident) Surgical History History of bilateral cataract extraction History of foot surgery (~02/2023) excision of skin cancer History of hammer toe correction (09/26/20) History of partial amputation of toe History of hernia repair History of tonsillectomy and adenoidectomy Social History Smoking Status: Former smoker pack-years: 30 alcohol intake: current alcohol intake frequency: holidays/special occasions only substance use type: does not use caffeine: Yes Type: coffee Number of servings: 2 what type of physical activity do you participate in: running and weight training frequency: 1-2 times per week Review of Systems (Anesthesia) ROS Narrative System reviewed and no additional complaints, except as documented.
--- NOTE | 2025-06-29 15:10 | RAD_ITS ---
PROCEDURE: ERCP BILIARY/PANCREAS 06/29/2025 REASON FOR EXAM: PAIN TECHNIQUE: ERCP BILIARY/PANCREAS FINDINGS: 15 images were supplied from an ERCP examination. See separate procedure note. The common hepatic and common bile duct and a portion of the cystic duct are opacified without visible filling defects. A biliary stent was placed RAD/ERCP Biliary/Pancreas IMPRESSION: Placement of biliary stent Reading Location: [facility]
[2025-06-29] MEDS: fentaNYL 100 MCG/2 ML Ampul IV (15:11)
[2025-06-29] MEDS: Lidocaine 1% (5 ml sdv) 5 ML Vial IV (15:11)
--- NOTE | 2025-06-29 16:28 | OP.PROVAT_ITS ---
06/29/2025 Jose Turner [address] [facility] [address] [place] [address] Re : ERCP procedure for Navid Hatch Dear Dr. Turner This procedure was performed on Sunday, June 29, 2025. My impressions and recommendations are as follows: Impressions : - A single segmental biliary stricture was found in the lower third of the main bile duct. The stricture was fibrotic. - The entire main bile duct and entire biliary tree were mildly dilated, acquired. - The patient has had a cholecystectomy. - Moderate dilatation of the pancreatic duct was found. - A pancreatic obstruction was found in the head of the pancreas. - A single pancreatic stone was found. The pancreatic duct was stented. - A biliary sphincterotomy was performed. - One temporary stent was placed into the common bile duct. - A minor papilla sphincterotomy was performed. - One temporary stent was placed into the dorsal pancreatic duct. Recommendations : Return for stent exchange and lithothripsy of the pancreatic head stone My findings are described in the full procedure note, which is enclosed. If I can be of further assistance, please feel free to contact me at . Sincerely, Dayday Sullivan DO 06/29/2025 4:28:01 PM This report has been signed electronically.
--- NOTE | 2025-06-29 16:28 | OP.ERCP_ITS ---
Patient Name: Navid Hatch Procedure Date: 06/29/2025 2:53 PM Date of : 1945 Age: 80 Procedure: ERCP Indications: Pancreatic duct stone, Elevated liver enzymes Providers: Dayday Sullivan DO Medicines: General Anesthesia Patient Profile: This is an 80 year old male. Refer to note in patient chart for documentation of history and physical. Patient has symptoms of acute epigastric abdominal pain and acute jaundice. This patient has no history of previous ERCP. This patient has no history of surgical alteration of the upper digestive tract anatomy. Previously obtained CT showed a stricture in the pancreas and a stone in the pancreas. Complications: No immediate complications. Procedure: Pre-Anesthesia Assessment: - Prior to the procedure, a History and Physical was performed, and patient medications and allergies were reviewed. The patient is competent. The risks and benefits of the procedure and the sedation options and risks were discussed with the patient. All questions were answered and informed consent was obtained. Patient identification and proposed procedure were verified by the physician in the pre-procedure area. Mental Status Examination: alert and oriented. Airway Examination: normal oropharyngeal airway and neck mobility. Respiratory Examination: clear to auscultation. CV Examination: normal. Prophylactic Antibiotics: The patient does not require prophylactic antibiotics. Prior Anticoagulants: The patient has taken no anticoagulant or antiplatelet agents except for NSAID medication. ASA Grade Assessment: II - A patient with mild systemic disease. After reviewing the risks and benefits, the patient was deemed in satisfactory condition to undergo the procedure. The anesthesia plan was to use monitored anesthesia care (MAC). Immediately prior to administration of medications, the patient was re-assessed for adequacy to receive sedatives. The heart rate, respiratory rate, oxygen saturations, blood pressure, adequacy of pulmonary ventilation, and response to care were monitored throughout the procedure. The physical status of the patient was re-assessed after the procedure. After obtaining informed consent, the scope was passed under direct vision. Throughout the procedure, the patient's blood pressure, pulse, and oxygen saturations were monitored continuously. The Duodenoscope was introduced through the mouth, and advanced to the duodenum and used to inject contrast into the bile, dorsal and ventral pancreatic ducts. The ERCP was accomplished without difficulty. The patient tolerated the procedure well. Scope In: 3:23:51 PM Scope Out: 4:14:38 PM Total Procedure Duration Time 0 hours 50 minutes 47 seconds Findings: The vendette film was normal. The esophagus was successfully intubated under direct vision. The scope was advanced to a normal major papilla in the descending duodenum without detailed examination of the pharynx, larynx and associated structures, and upper GI tract. The upper GI tract was grossly normal. The bile duct was deeply cannulated with the short-nosed traction sphincterotome. Contrast was injected. I personally interpreted the bile duct images. There was brisk flow of contrast through the ducts. Image quality was adequate. Contrast extended to the entire biliary tree. Opacification of the entire opacified area and entire biliary tree was successful. The maximum diameter of the ducts was 12 mm. The lower third of the main duct contained a single segmental stenosis 6 mm in length. The entire opacified area, main bile duct and entire biliary tree were mildly dilated, acquired. The largest diameter was 12 mm. A cholecystectomy had been performed. A long 0.025 inch Jagwire was passed into the biliary tree. A 5 mm biliary sphincterotomy was made with a traction (standard) sphincterotome using ERBE electrocautery. There was no post-sphincterotomy bleeding. One 10 Fr by 7 cm temporary stent with a single external flap was placed 5 cm into the common bile duct. Bile flowed through the stent. The stent was in good position. A 0.035 inch x 260 cm straight Dreamwire was passed into the biliary tree. The short-nosed traction sphincterotome was passed over the guidewire and the bile duct was then deeply cannulated. Contrast was injected. The dorsal pancreatic sphincterotomy was extended to a total of 5 mm in length with a traction (standard) sphincterotome using ERBE electrocautery. There was no post-sphincterotomy bleeding. One 7 Fr by 5 cm temporary stent was placed 5 cm into the dorsal pancreatic duct. Clear fluid flowed through the stent. The stent was in good position. The ventral pancreatic duct was deeply cannulated with the short-nosed traction sphincterotome. Contrast was injected. Opacification of the entire pancreatic ductal system except for the ventral duct in the head ([place] duct) was successful. The maximum diameter of the ducts was 8 mm. The in the pancreas was dilated moderately. The ventral pancreatic duct in the head of the pancreas contained a single stone. The ventral pancreatic duct in the head of the pancreas was partially obstructed. A long 0.025 inch Jagwire was passed into the ventral pancreatic duct. 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 The stricture was fibrotic. - The entire main bile duct and entire biliary tree were mildly dilated, acquired. - The patient has had a cholecystectomy. - Moderate dilatation of the pancreatic duct was found. - A pancreatic obstruction was found in the head of the pancreas. - A single pancreatic stone was found. The pancreatic duct was stented. - A biliary sphincterotomy was performed. - One temporary stent was placed into the common bile duct. - A minor papilla sphincterotomy was performed. - One temporary stent was placed into the dorsal pancreatic duct. Recommendation: Return for stent exchange and lithothripsy of the pancreatic head stone Procedure Code(s): --- Professional --- 82454, Endoscopic retrograde cholangiopancreatography (ERCP); with placement of endoscopic stent into biliary or pancreatic duct, including pre- and post-dilation and guide wire passage, when performed, including sphincterotomy, when performed, each stent [id number], 59, Endoscopic retrograde cholangiopancreatography (ERCP); with placement of endoscopic stent into biliary or pancreatic duct, including pre- and post-dilation and guide wire passage, when performed, including sphincterotomy, when performed, each stent [id number], 26, Endoscopic catheterization of the biliary ductal system, radiological supervision and interpretation CPT copyright 2021 [employer]. All rights reserved. The codes documented in this report are preliminary and upon care advocate review may be revised to meet current compliance requirements. Dayday Sullivan DO 06/29/2025 4:28:01 PM This report has been signed electronically. Number of Addenda: 0 Note Initiated On: 06/29/2025 2:53 PM
--- NOTE | 2025-06-29 16:33 | PCM.POST.ANE ---
Anesthesia: Postop Eval I Current Vital Signs Temperature: 97.7 F Pulse Rate: 99 Blood Pressure: 149/86 Respiratory Rate: 16 Pulse Ox: 98 Oxygen Delivery Method: Room Air Assessment Airway patent: Yes Spontaneous unlabored respirations: Yes Mental status: Awake and Calm nausea: No Vomiting: No Anesthesia Complication: No Fluid Hydration Crystalloid volume administer (ml): 800 Total IV fluid infused: 800 Progress Note Anesthesia document: Postop Eval 1 completed: Yes
--- NOTE | 2025-06-29 16:35 | PCM.POSTANE2 ---
Anesthesia Postop Eval I Sum Postop Eval Completion status Anesthesia document: Postop Eval 1 completed: Yes Anesthesia Postop Eval I Summary Anesthesia Postop Eval I Summary: Anesthesia Postop Eval I: Assessment Summary Airway patent Yes 06/29/25 16:34 Spontaneous unlabored Yes 06/29/25 16:34 respirations Mental status Awake,Calm 06/29/25 16:34 nausea No 06/29/25 16:34 Vomiting No 06/29/25 16:34 Anesthesia Postop Eval I: Fluid Summary Crystalloid volume administer 800 06/29/25 16:34 (ml) Colloids volume administered ( ml) Blood Product volume administered (ml) Total IV fluid infused 800 06/29/25 16:34 Anesthesia Postop Eval I: Summary Notes Anesthesia Complication No 06/29/25 16:34 Anesthesia Complication Comment: Post-operative progress note Anesthesia: Postop Eval II Evaluation Mental status: Awake and Calm Pain Level: 1 nausea: No Vomiting: No Complications Anesthesia Complication: No
[2025-06-30 02:00] VITALS: RESP 97
[2025-06-30] MEDS: metroNIDAZOLE 500 MG/100 ML BAG 100 MG IV (05:56)
[2025-06-30 06:00] VITALS: BMI 24.3
[2025-06-30 06:05] LABS: Hematocrit 38.0 % (40-54); Hemoglobin 13.3 g/dL (13.0-16.5); Immature Granulocytes Count 0.020 X10^3/uL (0.0-0.0); Mean Corp Hgb Conc 35.0 g/dL (32-36); Mean Corpuscular Volume 91.8 fL (80-94); Mean Platelet Vol. 10.2 fl (6.2-12.0); NRBC Flagged by Analyzer 0 % (0-5); Platelet Count 263 K/mm3 (150-450); RBC Distribution Width CV 13.1 % (11.6-14.6); RBC Distribution Width SD 42.5 fl (35.1-43.9); Red Blood Count 4.14 M/mm3 (4.6-6.2); White Blood Count 6.3 K/mm3 (4.4-11.0)
[2025-06-30 06:48] LABS: AST(SGOT) 33 U/L (<=37); Alanine Aminotransfer ALT/SGPT 45 U/L (<=46); Albumin, Serum 3.4 g/dL (3.4-4.8); Alkaline Phosphatase 100 U/L (40-129); Anion Gap 17 (5-15); BUN 27 mg/dL (4-19); BUN/Creat Ratio 17.1 RATIO (10-20); Calcium,Total 9.5 mg/dL (7.6-11.0); Carbon Dioxide 17.4 mmol/L (21.0-32.0); Chloride 104 mmol/L (98-108); Estimated Creatinine Clearance 39.32 ml/min (50-250); Globulin 3.4 g/dL (2.2-4.2); Glucose 171 mg/dL (70-99); Potassium 4.3 mmol/L (3.3-5.1)
[2025-06-30 07:51] VITALS: O2SAT 95
[2025-06-30 08:12] VITALS: PULSE 106
--- NOTE | 2025-06-30 08:23 | DCINST_ITS ---
Discharge Instructions DC O2, CPAP, BIPAP needs Home O2 Discharge instructions: No Dressing / Incision Discharge Activity: Return to Normal Activity Dressing / Incision Call your doctor if you observe: Fever of 101 or Higher, Shortness of breath, Dizziness, Fainting spells, Swelling in the ankles, Chest pain and Increased palpitations (irregular heartbeat) Follow Up Care Test Results: Test results from this visit will be discussed in further detail at your follow- up appointment, if applicable. Discharge Plan Admission Admit Date/Time: 06/28/25 23:11 Attending Provider: Sandor Vera Primary Care Provider: Jose Turner Consulting Providers: Artie Herman Discharge Orders/Prescriptions Prescriptions: New cefdinir 300 mg capsule 300 mg PO BID Qty: 10 0RF metronidazole 500 mg tablet 500 mg PO Q8H Qty: 15 0RF Continued Inflectra 100 mg recon soln 100 mg IV UD Patient Comments: IV Rx Instructions: 8 MG/KG, i0xarch glucosamine HCl 1,500 mg tablet 1,500 mg PO BID Rx Instructions: administer with a meal cyanocobalamin (vitamin B-12) 100 mcg tablet 500 mcg PO DAILY cholecalciferol (vitamin D3) 25 mcg (1,000 unit) tablet 25 mcg PO DAILY ginkgo biloba leaf extract 60 mg capsule 60 mg PO DAILY Rx Instructions: give with meal/snack PreserVision AREDS 4,296 mcg-226 mg-90 mg capsule 1 cap PO QDAY tamsulosin 0.4 MG capsule 0.4 mg PO QHS finasteride 5 MG tablet 5 mg PO DAILY methotrexate sodium 2.5 MG tablet 7.5 mg PO Q7D pyridoxine (vitamin B6) 50 MG tablet 100 mg PO QHS fluticasone propionate 1 SPRAY spray,suspension 2 spray NASAL DAILY PRN (Reason: Nasal Congestion) folic acid 1 mg tablet 4 mg PO DAILY oxybutynin chloride 5 MG tablet 5 mg PO QHS amlodipine 2.5 mg tablet 2.5 mg PO DAILY carvedilol 25 mg tablet 25 mg PO BID fluocinolone 0.01 % oil 1 applic topical BID Lumigan 0.01 % drops 1 drp ophthalmic (eye) DAILY multivitamin [Daily Multi-Vitamin] Tablet 1 tab PO DAILY acetaminophen 325 mg Tablet 650 mg PO Q6H PRN PRN (Reason: Pain 1-10 Or Fever >100.7) Qty: 0 0RF spironolacton-hydrochlorothiaz 25-25 mg tablet 1 tab PO DAILY potassium chloride 20 mEq tablet,ER particles/crystals 20 meq PO DAILY Acidophilus Capsule 1 cap PO BID pravastatin 40 mg tablet 40 mg PO QHS Qty: 90 3RF Held glipizide 10 mg tablet 10 mg PO DAILY Hold Instructions: Resume on 07/01/25. Jardiance 10 mg tablet 10 mg PO DAILY Hold Instructions: Resume on 07/02/25. Eliquis 5 mg tablet 2.5 mg PO BID Hold Instructions: Resume on 07/02/25. Referrals / Follow Up: Jose Turner MD [Primary Care Provider] - FriendDayday DO [Med Staff - Active Staff] - Within 1 Month Disposition Disposition (needs filled in before D/C Order can be placed): Home, Self Care
[2025-06-30] MEDS: Hydrocortisone 2.5% Crm 1 APPLIC TOPICAL (09:02)
[2025-06-30] MEDS: Latanoprost 0.005% 1 Bottle 1 DRP OPHTHALMIC (09:02)
[2025-06-30] MEDS: Potassium Chloride Oral Tablet 20 MEQ PO (09:04)
[2025-06-30 09:17] VITALS: BP 163/75; PULSE 88; RESP 16; TEMP 36.8; O2SAT 100
[2025-06-30 11:24] VITALS: BP 155/89; PULSE 92
--- NOTE | 2025-06-30 12:11 | PCM.DC.SUM ---
Providers Date of Admission: 06/28/25 Primary Care Physician: Dr. Jose Turner MD Consultations 06/28/25 23:57 Consult: Gastroenterology Routine Consulting Provider: [facility] Reason for Consult: Khaxk-[id number] Pancreatitis. EMERGENT Consult: No MD Notified: Yes Date Notified: 06/28/25 Time Notified: 23:13 Method of Notification: ED Physician Initiated Reason For Visit: [id number]-PANISUZ PANCREATITIS Diagnosis Discharge Diagnosis (1) 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 Status: Acute Code(s): K86.89 - Other specified diseases of pancreas (2) Abdominal pain: Status: Acute Code(s): R10.9 - Unspecified abdominal pain Qualifiers: Abdominal location: lower abdomen, unspecified Qualified Code(s): R10.30 - Lower abdominal pain, unspecified (3) Acute on chronic pancreatitis: Status: Chronic Code(s): K85.90 - Acute pancreatitis without necrosis or infection, unspecified; K86.1 - Other chronic pancreatitis Medications at Discharge Home Medications finasteride 5 mg tablet 5 mg PO DAILY prostate 02/03/16 tamsulosin 0.4 mg capsule 0.4 mg PO QHS prostate 02/03/16 fluticasone propionate 50 mcg/actuation nasal spray,suspension 2 spray NASAL DAILY PRN Nasal Congestion 06/30/18 methotrexate sodium 2.5 mg tablet 7.5 mg PO Q7D arthritis 06/30/18 pyridoxine (vitamin B6) 50 mg tablet 100 mg PO QHS supplement 06/30/18 oxybutynin chloride 5 mg tablet,extended release 24 hr 5 mg PO QHS bladder 10/20/18 folic acid 1 mg tablet 4 mg PO DAILY supplement 06/01/19 glucosamine HCl 1,500 mg tablet 1,500 mg PO BID supplemt 02/20/20 infliximab-dyyb 100 mg intravenous solution (Inflectra) 100 mg IV UD psoriatic arthritis 05/30/20 cyanocobalamin (vitamin B-12) 100 mcg tablet 500 mcg PO DAILY supplement 12/01/20 cholecalciferol (vitamin D3) 25 mcg (1,000 unit) tablet 25 mcg PO DAILY supplement 06/20/24 ginkgo biloba leaf extract 60 mg capsule 60 mg PO DAILY 06/20/24 glipizide 10 mg tablet 10 mg PO DAILY dm 06/20/24 Held on 06/30/25. Instructions: Resume on 07/01/25. vitamins A,C,S-cxpa-iqeqvd 4,296 mcg-226 mg-90 mg capsule (PreserVision AREDS) 1 cap PO QDAY 03/08/25 apixaban 5 mg tablet (Eliquis) 2.5 mg PO BID 04/15/25 Held on 06/30/25. Instructions: Resume on 07/02/25. multivitamin (Daily Multi-Vitamin tablet) 1 tab PO DAILY 04/15/25 acetaminophen 325 mg tablet 650 mg (2 x 325 mg) PO Q6H PRN PRN Pain 1-10 Or Fever >100.7 #0 tabs 04/17/25 pravastatin 40 mg tablet 40 mg PO QHS cholesterol #90 tabs 05/15/25 amlodipine 2.5 mg tablet 2.5 mg PO DAILY 06/21/25 bimatoprost 0.01 % eye drops (Lumigan) 1 drp ophthalmic (eye) DAILY 06/21/25 carvedilol 25 mg tablet 25 mg PO BID 06/21/25 empagliflozin 10 mg tablet (Jardiance) 10 mg PO DAILY 06/21/25 Held on 06/30/25. Instructions: Resume on 07/02/25. fluocinolone 0.01 % topical body oil 1 applic topical BID 06/21/25 Lactobacillus acidophilus (Acidophilus capsule) 1 cap PO BID 06/28/25 potassium chloride 20 mEq tablet,extended release(part/cryst) 20 meq PO DAILY 06/28/25 spironolactone 25 mg-hydrochlorothiazide 25 mg tablet 1 tab PO DAILY 06/28/25 cefdinir 300 mg capsule 300 mg PO BID #10 caps 06/30/25 metronidazole 500 mg tablet 500 mg PO Q8H #15 tabs 06/30/25 Hospital Course Operations ERCP Procedures None Summary of Care Provided Minutes Spent on Discharge: 37 Hospital Course: Per HPI: YESSI HATCH, is a 80 M with a past medical history of essential hypertension; on amlodipine, carvedilol twice daily and spironolactone-hydrochlorothiazide, hyperlipidemia; on pravastatin, former tobacco abuse, DM-2; on empagliflozin and glipizide, chronic atrial fibrillation; on apixaban twice daily, history of ectopic atrial tachycardia, history of paroxysmal ventricular tachycardia, history of SVT, psoriatic arthritis; on methotrexate and Inflectra, history of asthma, history of secondary pulmonary arterial hypertension, RAJESH; on CPAP, glaucoma, OAB; on oxybutynin, BPH; on finasteride and tamsulosin, GERD; currently not on treatment, OA; with history of acute/chronic osteomyelitis of the ankle and foot and recent ER evaluation here on June 21, 2025 with BRBPR complicated by constipation for 4 days and abdominal cramping with a hemoglobin of 15.7 g/dL with gastroenterology recommending outpatient follow-up in his office and with patient instructed to come back to the ER if his bleeding returned who presents to [facility] ER complaining of abdominal pain with elevated lipase of 2,162 units/L on outpatient testing with patient instructed by his PCP to come to the ER for further evaluation and treatment. Mr. Hatch reports his symptoms began approximately 1 day prior to admission with ongoing generalized weakness since his previous ER visit with his PCP ordering laboratory testing. With the laboratory testing returned positive for evidence of bmqcy-mm-jurljbh pancreatitis with the patient complaining of lower abdominal pain he was instructed to come to the ER. He denies history of pancreatitis or EtOH abuse. He also denies associated fever, chills, runny nose, sore throat, ear pain, chest pain, palpitations, heart racing, lower extremity edema, shortness of breath, wheezing, nausea, vomiting, diarrhea, dysuria, hematuria, headache or rash. In the ER he was diagnosed with CT evidence of Isbpf-qy-Betoeoa Pancreatitis complicated by Abdominal Pain with CT scan of the abdomen pelvis with IV contrast revealing sequelae of chronic pancreatitis with multiple scattered parenchymal calcifications and unchanged prominent ~12 mm stone in the region of the pancreatic head which appears to be within the confluence of the main pancreatic duct and common bile duct which is likely obstructive with upstream prominent dilatation of the pancreatic duct with degree of ductal dilatation increased from prior exam with an additional small calculus in the region of the accessory pancreatic duct which also may be obstructive in addition to mild subtle peripancreatic fat infiltration/edema suggesting mild tsves-we-rwwbejj pancreatitis with the ER physician speaking to the transitional care manager on-call who is planning for ERCP in a.m., with help appreciated in advance. He was then admitted to the general medical floor telemetric monitoring for ongoing care for a stay that is expected to extend beyond 2 midnights. Hospital Course: 1. 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 Hemoglobin has been stable so the hematochezia is likely hemorrhoid versus fissure and given that his hemoglobin has remained stable of not significant concern during this admission. ERCP was negative for any source of bleeding in the upper GI tract however it did demonstrate a biliary stricture that was fibrotic, this was treated with a sphincterotomy and a single pancreatic duct stone was found that was removed with a temporary stent placed. No signs of infection however from a prophylactic standpoint gastroenterology had requested 5 days of antibiotics on discharge. Unfortunate he does have fairly significant allergies, he has tendon rupture with fluoroquinolones, he has a rash with penicillins as well as with Bactrim and Keflex. Therefore I elected to place him on 5 days of cefdinir which she only has abdominal cramps as a side effect as well as Flagyl which he does not appear to have be allergic to, he was maintained on aztreonam and Flagyl here in the hospital. I discussed with him the plan for discharge today and he expressed understanding of the risks and benefits of going home and would like to go home today. He will need to follow-up with his PCP in 3 to 5 days and with gastroenterology in a month for the temporary stent to be removed as an outpatient. 2. Type 2 diabetes?I elected to hold his glipizide for today with a restart on 07/01/2025 secondary to some poor p.o. 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 I will restart his Jardiance on 07/02/2025, of note I would like his PCP to obtain lab work as an outpatient, he does have a slight rise in his creatinine and his bicarb dropped to 17.4. These labs do not match the clinical picture there is the slight possibility of a euglycemic acidosis with Jardiance however or lab equipment at this institution has had difficulty with anion gap send bicarbonate levels being accurate. 3. Psoriatic arthritis, asthma, BPH, essential HTN, HLD, A-fib are all chronic medical conditions which complicate his care. His home medications were continued where appropriate. Recommend restarting Eliquis on 07/02/2025 as well. Weight / BMI Weight Weight: 179 lb 10.828 oz Body Mass Index (BMI) 24.3 ABG / Lab / Microbiology Data 06/30/25 04:49 06/30/25 04:49 Laboratory: Laboratory Results - last 24 hr 06/29/25 12:00: POC Glucose 145 H 06/29/25 17:05: POC Glucose 103 06/29/25 18:38: POC Glucose 126 H 06/29/25 23:16: POC Glucose 207 H 06/30/25 04:49: WBC 6.3, RBC 4.14 L, Hgb 13.3, Hct 38.0 L, MCV 91.8, MCH 32.1 H, MCHC 35.0, RDW Std Deviation 42.5, RDW Coeff of Jaimee 13.1, Plt Count 263, MPV 10.2, Immature Gran % (Auto) 0.300, Neut % (Auto) 82.8 H, Lymph % (Auto) 12.9 L, [place] % (Auto) 3.8, Eos % (Auto) 0.0, Baso % (Auto) 0.2, Absolute Neuts (auto) 5.2, Absolute Lymphs (auto) 0.81 L, Nucleated RBC % 0, Sodium 138, Potassium 4.3, Chloride 104, Carbon Dioxide 17.4 L, Anion Gap 17 H, BUN 27 H, Creatinine 1.59 H, Estim Creat Clear Calc 39.32 L, Est GFR (MDRD) Non-Af 43 L, BUN/Creatinine Ratio 17.1, Glucose 171 H, Calcium 9.5, Total Bilirubin 0.44, AST 33, ALT 45, Alkaline Phosphatase 100, Total Protein 6.8, Albumin 3.4, Globulin 3.4, Albumin/Globulin Ratio 1.0 06/30/25 06:56: POC Glucose 175 H 06/30/25 11:22: POC Glucose 268 H Radiography Diagnostic Testing: Radiology Impression Endo Retro Cholangiopancreatogram 06/29/25 15:10 IMPRESSION: Placement of biliary stent Reading Location: [facility] D/C Instructions Call your doctor if you observe: Fever of 101 or Higher, Shortness of breath, Dizziness, Fainting spells, Swelling in the ankles, Chest pain and Increased palpitations (irregular heartbeat) DC O2, CPAP, BIPAP Needs Home O2 Discharge instructions: No Meaningful Use Info Meaningful Use Meaningful Use Diagnoses (Choose all that apply): None applicable Discharge Plan Admission Admit Date/Time: 06/28/25 23:11 Primary Reason for Your Visit: ACUTE- ON- CHRONIC PANCREATITIS Attending Provider: Sandor Vera Primary Care Provider: Jose Turner Consulting Providers: Artie Herman Discharge Orders/Prescriptions Prescriptions: New cefdinir 300 mg capsule 300 mg PO BID Qty: 10 0RF metronidazole 500 mg tablet 500 mg PO Q8H Qty: 15 0RF Continued Inflectra 100 mg recon soln 100 mg IV UD Patient Comments: IV Rx Instructions: 8 MG/KG, [id number] glucosamine HCl 1,500 mg tablet 1,500 mg PO BID Rx Instructions: administer with a meal cyanocobalamin (vitamin B-12) 100 mcg tablet 500 mcg PO DAILY cholecalciferol (vitamin D3) 25 mcg (1,000 unit) tablet 25 mcg PO DAILY ginkgo biloba leaf extract 60 mg capsule 60 mg PO DAILY Rx Instructions: give with meal/snack PreserVision AREDS 4,296 mcg-226 mg-90 mg capsule 1 cap PO QDAY tamsulosin 0.4 MG capsule 0.4 mg PO QHS finasteride 5 MG tablet 5 mg PO DAILY methotrexate sodium 2.5 MG tablet 7.5 mg PO Q7D pyridoxine (vitamin B6) 50 MG tablet 100 mg PO QHS fluticasone propionate 1 SPRAY spray,suspension 2 spray NASAL DAILY PRN (Reason: Nasal Congestion) folic acid 1 mg tablet 4 mg PO DAILY oxybutynin chloride 5 MG tablet 5 mg PO QHS amlodipine 2.5 mg tablet 2.5 mg PO DAILY carvedilol 25 mg tablet 25 mg PO BID fluocinolone 0.01 % oil 1 applic topical BID Lumigan 0.01 % drops 1 drp ophthalmic (eye) DAILY multivitamin [Daily Multi-Vitamin] Tablet 1 tab PO DAILY acetaminophen 325 mg Tablet 650 mg PO Q6H PRN PRN (Reason: Pain 1-10 Or Fever >100.7) Qty: 0 0RF spironolacton-hydrochlorothiaz 25-25 mg tablet 1 tab PO DAILY potassium chloride 20 mEq tablet,ER particles/crystals 20 meq PO DAILY Acidophilus Capsule 1 cap PO BID pravastatin 40 mg tablet 40 mg PO QHS Qty: 90 3RF Held glipizide 10 mg tablet 10 mg PO DAILY Hold Instructions: Resume on 07/01/25. Jardiance 10 mg tablet 10 mg PO DAILY Hold Instructions: Resume on 07/02/25. Eliquis 5 mg tablet 2.5 mg PO BID Hold Instructions: Resume on 07/02/25. Referrals / Follow Up: Jose Turner MD [Primary Care Provider] - FriendDayday DO [Med Staff - Active Staff] - Within 1 Month Disposition Disposition (needs filled in before D/C Order can be placed): Home, Self Care Charges/Coding Visit Charges Inpatient E&M: 48632 Disch Hosp >30min
[2025-06-30 13:10] VITALS: BP 153/95; PULSE 92; RESP 18; TEMP 36.6; O2SAT 97
== END 2025-06-30 13:36 | disposition home or self-care (01) | DRG 438 ==
LOC: ED 21:19 → MS3 06-29 03:45
PROVIDERS: Internal Medicine Gastroenterology; Admitting Provider Internal Medicine; Emergency Provider Student in an Organized Health Care Education/Training Program; PCP Family Medicine; Visit Provider Family Medicine
PROC: 0FHD8DZ Insertion of Intraluminal Device into Pancreatic Duct, Via Natural or Artificial Opening Endoscopic (ICD-10-PCS; CPT 43260; principal; 2025-06-29 14:00)
DX: K85.90 Acute pancreatitis without necrosis or infection, unspecified (principal); K83.1 Obstruction of bile duct; I48.20 Chronic atrial fibrillation, unspecified; R17 Unspecified jaundice; K86.3 Pseudocyst of pancreas; E11.621 Type 2 diabetes mellitus with foot ulcer; L40.50 Arthropathic psoriasis, unspecified; J45.909 Unspecified asthma, uncomplicated; I10 Essential (primary) hypertension; K86.1 Other chronic pancreatitis; K21.9 Gastro-esophageal reflux disease without esophagitis; E78.5 Hyperlipidemia, unspecified; Z79.4 Long term (current) use of insulin; K83.8 Other specified diseases of biliary tract; G47.33 Obstructive sleep apnea (adult) (pediatric); L97.509 Non-pressure chronic ulcer of other part of unspecified foot with unspecified severity; Z79.84 Long term (current) use of oral hypoglycemic drugs; Z82.49 Family history of ischemic heart disease and other diseases of the circulatory system; K86.89 Other specified diseases of pancreas; Z79.01 Long term (current) use of anticoagulants; Z79.1 Long term (current) use of non-steroidal anti-inflammatories (NSAID); Z87.891 Personal history of nicotine dependence; H40.9 Unspecified glaucoma; Z90.49 Acquired absence of other specified parts of digestive tract; N40.0 Benign prostatic hyperplasia without lower urinary tract symptoms; Z99.89 Dependence on other enabling machines and devices
CPT/HCPCS: 36415; 74177; 74330; 76000; 80053; 81001; 82077; 82962; 83690; 83735; 84100; 84443; 85025; 93005; 94668; 97161; 99284; C2625; Q9967; A4216; J2405

== ENCOUNTER → 2025-06-28 | Outpatient (CLI) | payer MEDICARE, OTHER, SELFPAY ==
[2025-06-28 12:36] LABS: Hematocrit 37.6 % (40-54); Hemoglobin 13.5 g/dL (13.0-16.5); Immature Granulocytes Count 0.020 X10^3/uL (0.0-0.0); Mean Corp Hgb Conc 35.9 g/dL (32-36); Mean Corpuscular Volume 91.7 fL (80-94); Mean Platelet Vol. 10.7 fl (6.2-12.0); NRBC Flagged by Analyzer 0 % (0-5); Platelet Count 233 K/mm3 (150-450); RBC Distribution Width CV 13.0 % (11.6-14.6); RBC Distribution Width SD 41.9 fl (35.1-43.9); Red Blood Count 4.10 M/mm3 (4.6-6.2); White Blood Count 7.4 K/mm3 (4.4-11.0)
[2025-06-28 14:07] LABS: AST(SGOT) 45 U/L (<=37); Alanine Aminotransfer ALT/SGPT 64 U/L (<=46); Albumin, Serum 3.9 g/dL (3.4-4.8); Alkaline Phosphatase 93 U/L (40-129); Anion Gap 12 (5-15); BUN 22 mg/dL (4-19); BUN/Creat Ratio 14.7 RATIO (10-20); Calcium,Total 10.1 mg/dL (7.6-11.0); Carbon Dioxide 21.5 mmol/L (21.0-32.0); Chloride 102 mmol/L (98-108); Globulin 3.4 g/dL (2.2-4.2); Glucose 230 mg/dL (70-99); Lipase 2162 U/L (13-75); Potassium 3.9 mmol/L (3.3-5.1)
== END | disposition home or self-care (01) ==
LOC: MFPLAB 10:34
PROVIDERS: PCP Family Medicine; Visit Provider Family Medicine
DX: R74.01 Elevation of levels of liver transaminase levels (principal); K86.89 Other specified diseases of pancreas; K92.2 Gastrointestinal hemorrhage, unspecified
CPT/HCPCS: 36415; 80053; 83690; 85025

== ENCOUNTER 2025-07-02 17:03 | Emergency (ER) | payer MEDICARE, OTHER, SELFPAY ==
[2025-07-02] VITALS (11 sets, daily range): BP systolic 147–167; BP diastolic 82–114; PULSE 81–109; RESP 16–24; TEMP 36.7–36.9; O2SAT 97–100; BMI 24.0
--- NOTE | 2025-07-02 17:27 | EKG12_ITS ---
Test Reason : SOB Blood Pressure : */* mmHG Vent. Rate : 94 BPM Atrial Rate : * BPM P-R Int : * ms QRS Dur : 94 ms QT Int : 364 ms P-R-T Axes : * 20 57 degrees QTcB Int : 455 ms Atrial fibrillation with premature ventricular or aberrantly conducted complexes Abnormal ECG Confirmed by MORE BENITEZ, RENEE ([id number]), assistant film editor ISA ARZATE ([id number]) on 07/03/2025 9:39:01 AM Referred By: Confirmed By: RENEE AGUERO MD
--- NOTE | 2025-07-02 17:27 | ED.VIS.DYS ---
HPI History of Present Illness Chief Complaint: Shortness of Breath Informant: patient, spouse/S.O. and PCP Narrative Narrative: 80-year-old male presents for dyspnea that has been present since he was in the PACU after having an ERCP and pancreatic duct stent placed about 3 or 4 days ago, according to the patient and his significant other. He states at times has been gasping for air despite having oxygen levels at 100%. He has a remote history of asthma that he states never usually bothers him and this does not feel like wheezing/asthma. States its mostly with light activity, it takes him a while to feel better from resting but usually does with resting, denies any orthopnea. Denies any exertional chest discomfort and not at rest either. He does not have a cough or fevers. He has a history of atrial fibrillation, and has been on apixaban but it was discontinued because he also had GI bleeding prior to undergoing ERCP, and he has been off of it and was supposed to continue it today but has not taken it yet. He denies any new leg pain or swelling. No history of DVT or PE. No pleuritic chest discomfort. He saw GI in follow-up after being diagnosed with acute on chronic pancreatitis, he states he is not having a lot of abdominal pain, to some mild soreness throughout. He does not have a great appetite but he is able to eat and sometimes when he eats it makes his breathing worse. He is scheduled for an extracorporeal shockwave lithotripsy procedure to break up the stone that is still present within the stent. He had blood work and a chest x-ray done earlier today and then saw his PCP [employer] who sent him here to the ER. [facility] Medical History Kidney disease GERD (gastroesophageal reflux disease) Former smoker Hypertension Hypertension, well controlled Amputation toe Cataract Glaucoma CPAP (continuous positive airway pressure) dependence Sleep apnea Asthma Atrial fibrillation Nonhealing nonsurgical wound with fat layer exposed Essential hypertension RAJESH (obstructive sleep apnea) Ectopic atrial tachycardia Paroxysmal ventricular tachycardia Premature atrial contractions Cellulitis Psoriasis Arthritis Shortness of breath Hyperlipidemia Hypertension Premature ventricular contraction Supraventricular tachycardia Long-term use of high-risk medication Body mass index 31.0-31.9, adult Diabetes mellitus Secondary pulmonary arterial hypertension Methicillin susceptible Staphylococcus aureus infection Acute osteomyelitis involving ankle and foot Chronic osteomyelitis involving ankle and foot Home Medications ?Medication ?Instructions ?Recorded ?Last Taken ?Type finasteride 5 mg tablet 5 mg PO DAILY prostate 02/03/16 06/21/25 History tamsulosin 0.4 mg capsule 0.4 mg PO QHS prostate 02/03/16 06/20/25 History fluticasone propionate 50 2 spray NASAL DAILY PRN Nasal 06/30/18 04/15/25 History mcg/actuation nasal Congestion spray,suspension methotrexate sodium 2.5 mg tablet 7.5 mg PO Q7D arthritis 06/30/18 06/19/25 History pyridoxine (vitamin B6) 50 mg 100 mg PO QHS supplement 06/30/18 06/20/25 History tablet oxybutynin chloride 5 mg 5 mg PO QHS bladder 10/20/18 06/20/25 History tablet,extended release 24 hr folic acid 1 mg tablet 4 mg PO DAILY supplement 06/01/19 04/15/25 History glucosamine HCl 1,500 mg tablet 1,500 mg PO BID supplemt 02/20/20 06/21/25 History infliximab-dyyb 100 mg intravenous 100 mg IV UD psoriatic arthritis 05/30/20 06/07/25 History solution (Inflectra) cyanocobalamin (vitamin B-12) 100 500 mcg PO DAILY supplement 12/01/20 06/21/25 History mcg tablet cholecalciferol (vitamin D3) 25 25 mcg PO DAILY supplement 06/20/24 06/21/25 History mcg (1,000 unit) tablet ginkgo biloba leaf extract 60 mg 60 mg PO DAILY 06/20/24 06/21/25 History capsule glipizide 10 mg tablet 10 mg PO DAILY dm 06/20/24 04/15/25 History vitamins A,C,K-auwb-xnmjtk 4,296 1 cap PO QDAY 03/08/25 06/21/25 History mcg-226 mg-90 mg capsule (PreserVision AREDS) apixaban 5 mg tablet (Eliquis) 2.5 mg PO BID 04/15/25 06/21/25 History Held on 06/30/25. Instructions: Resume on 07/02/25. multivitamin (Daily Multi-Vitamin 1 tab PO DAILY 04/15/25 06/21/25 History tablet) acetaminophen 325 mg tablet 650 mg (2 x 325 mg) PO Q6H PRN PRN 04/17/25 Unknown Rx Pain 1-10 Or Fever >100.7 #0 tabs pravastatin 40 mg tablet 40 mg PO QHS cholesterol #90 tabs 05/15/25 06/20/25 Rx amlodipine 2.5 mg tablet 2.5 mg PO DAILY 06/21/25 06/21/25 History bimatoprost 0.01 % eye drops 1 drp ophthalmic (eye) DAILY 06/21/25 06/21/25 History (Lumigan) carvedilol 25 mg tablet 25 mg PO BID 06/21/25 06/21/25 History empagliflozin 10 mg tablet 10 mg PO DAILY 06/21/25 06/21/25 History (Jardiance) fluocinolone 0.01 % topical body 1 applic topical BID 06/21/25 06/21/25 History oil Lactobacillus acidophilus 1 cap PO BID 06/28/25 Unknown History (Acidophilus capsule) potassium chloride 20 mEq 20 meq PO DAILY 06/28/25 Unknown History tablet,extended release(part/cryst) spironolactone 25 1 tab PO DAILY 06/28/25 Unknown History mg-hydrochlorothiazide 25 mg tablet cefdinir 300 mg capsule 300 mg PO BID #10 caps 06/30/25 Unknown Rx metronidazole 500 mg tablet 500 mg PO Q8H #15 tabs 06/30/25 Unknown Rx albuterol sulfate 90 mcg/actuation 1 - 2 puff inhalation Q4H PRN PRN 07/02/25 Unknown Rx aerosol inhaler (Ventolin HFA) Wheezing ##1 prednisone 20 mg tablet 40 mg (2 x 20 mg) PO DAILY 5 days 07/02/25 Unknown Rx #10 tabs Allergy/AdvReac Type Severity Reaction Status Date / Time cephalexin (From Keflex) Allergy Severe rash Verified 07/02/25 17:06 sulfamethoxazole (From Allergy Severe Rash Verified 07/02/25 17:06 Bactrim) trimethoprim (From Bactrim) Allergy Severe Rash Verified 07/02/25 17:06 cefdinir Allergy Mild Abd Verified 07/02/25 17:06 cramps/diarrhea Penicillins Allergy Rash Verified 07/02/25 17:06 doxycycline AdvReac Severe GI upset Verified 07/02/25 17:06 levofloxacin (From Levaquin) AdvReac Other Verified 07/02/25 17:06 Family History Father Cancer Prostate Mother Depression Uncle Myocardial infarction Son CVA (cerebral vascular accident) Surgical History History of bilateral cataract extraction History of foot surgery (~02/2023) excision of skin cancer History of hammer toe correction (09/26/20) History of partial amputation of toe History of hernia repair History of tonsillectomy and adenoidectomy Social History Smoking Status: Former smoker pack-years: 30 alcohol intake: current alcohol intake frequency: holidays/special occasions only substance use type: does not use caffeine: Yes Type: coffee Number of servings: 2 what type of physical activity do you participate in: running and weight training frequency: 1-2 times per week ROS ROS ED Constitutional Constitutional ED: Denies chills or fever(s) Eyes Eyes: Denies change in vision or diplopia ENT ENT ED: Denies rhinorrhea or sore throat Cardiovascular Cardiovascular: Denies chest pain, orthopnea or palpitations Respiratory/Chest Respiratory/Chest: Reports dyspnea and dyspnea on exertion; Denies cough or orthopnea Gastrointestinal Gastrointestinal: Reports abdominal pain; Denies diarrhea, nausea or vomiting Genitourinary Genitourinary ED: Denies dysuria or hematuria Musculoskeletal Musculoskeletal: Denies back pain or neck pain Integumentary Denies abscess or rash Neurologic Neurologic: Denies headache(s), paresthesias or weakness Psychiatric Psychiatric: Denies suicidal thoughts EXAM Physical Exam Const Vital Signs: 07/02/25 17:06 07/02/25 17:08 07/02/25 17:41 Temperature 98.4 F 98.4 F Temperature Source Oral Oral Pulse Rate 109 H 109 H Respiratory Rate 24 H 24 H Respiratory Effort Short of Breath Respiratory Depth Normal Respiratory Pattern Normal Blood Pressure 151/99 H 151/99 H Blood Pressure Mean 116 116 Pulse Ox 99 99 Oxygen Delivery Method Room Air Room Air Room Air 07/02/25 18:08 07/02/25 19:00 07/02/25 20:00 Temperature 98.1 F 98.0 F Temperature Source Temporal Temporal Pulse Rate 81 97 89 Respiratory Rate 16 16 18 Respiratory Effort Respiratory Depth Respiratory Pattern Blood Pressure 147/82 H 162/97 H 167/83 H Blood Pressure Mean 103 118 111 Pulse Ox 98 100 98 Oxygen Delivery Method Room Air Room Air Room Air 07/02/25 20:51 07/02/25 21:00 07/02/25 22:00 Temperature Temperature Source Pulse Rate 94 82 91 Respiratory Rate 16 20 H 18 Respiratory Effort Respiratory Depth Respiratory Pattern Normal Blood Pressure 164/114 H Blood Pressure Mean 130 Pulse Ox 100 99 Oxygen Delivery Method Room Air Positive well nourished and well developed General Appearance ED: well developed and NAD HEENT Reports moist mucous membranes normocephalic and atraumatic Eyes PERRL and EOMs intact bilaterally Neck full ROM and supple Resp normal respiratory effort and clear to auscultation bilaterally Resp Narrative: No splinting with deep inspiration Cardio Cardio Narrative: Mildly tachycardic Rhythm: abnormal rhythm irregularly irregular GI non-distended GI Narrative: Mild subjective diffuse lower abdominal tenderness no upper tenderness. No guarding or rebound no pulsatile mass normal inspection. Auscultation: normoactive bowel sounds Palpation: soft Back/Spine no CVA tenderness General Back: other FROM Extremity normal to inspection General Extremety ED: Negative for edema, pulses abnormal or tenderness General Extremity: Negative for edema or pulses abnormal Neuro oriented x3, CN's II-XII intact bilaterally and no sensory deficits noted Sensorium / Orientation: awake and alert Motor Exam: strength 5/5 throughout Skin no rashes or lesions noted and no wounds MDM MDM MDM Narrative Medical decision making narrative: Patient has some mild renal sufficiency. Attempts to try to avoid CT dye, we did a D-dimer initially, it was elevated. His estimated GFR is approximately 52, safe for undergoing CT angiography of the chest with dye. I discussed this with the patient and family and they were comfortable with that plan. This was done I read the imaging and the report which I agree with, basically no PE but consistent with emphysematous changes. Patient did not know he had a history of COPD, which he may or may not have but will need to undergo outpatient pulmonary function test. For now he would be stable for discharge home. However prior to that, we given a duo nebulizer treatment and then ambulated him afterwards to see if he noticed a difference. He felt much better. His EKG is unremarkable, he had an initial nonspecific troponin which is likely due to his renal insufficiency, that trended down into the normal range on the delta. He is not hypoxic and comfortable discharging him home, I am going to write him for a burst of prednisone given the dose here in addition to an albuterol inhaler and have him follow-up with his doctor. He is comfortable with that plan. History & Record Review Additional record(s) reviewed:: Prior labs (Outpatient labs and chest x-ray obtained today. There is no result on the chest x-ray but 2 views of my interpretation are unremarkable; I see no infiltrate or pneumothorax or widened mediastinum. There does not appear to be any free air under the diaphragm.) Lab Data Attestation: I reviewed the patient's lab results. Labs: Laboratory Results - last 24 hr 07/02/25 07/02/25 17:35 20:01 D-Dimer Quant (PE/DVT) 1.32 H* Troponin T High Sens 26 H Troponin T Hi Sens 2 Hr 21 ABG Data ABG results: ABG 07/02/25 17:41 Specimen Type AIYANA Sample Site Not entered VBG pH 7.47 H VBG pO2 78 H VBG HCO3 23 VBG Total CO2 24 VBG O2 Sat (Calc) 96 H VBG Base Excess -1 POC Mix VBG pCO2 Pt Tmp 31.1 L O2 Delivery Device Not entered Radiography Diagnostic Testing: Clinical Impression(s) from Imaging Studies Chest CTA 07/02/25 18:17 IMPRESSION: *No evidence of acute pulmonary embolism to the subsegmental level. *Moderate centrilobular and mild paraseptal emphysema, consistent with underlying chronic obstructive pulmonary disease (COPD). *Osseous demineralization and degenerative changes of the spine. Reading Location: [id number] Rhythm Strip Rhythm Strip: A-fib Rate: 94 Ectopy: None EKG Initial EKG: Attestation: I personally reviewed and interpreted this EKG as follows: Interpretation: No Acute Injury Pattern and Atrial Fibrillation Management Discussion w/another healthcare provider: Customer Contact Specialist (GI friend - discussed current presentation; was not aware that pt was dyspneic when he saw him inpt) Discharge Plan Triage Chief Complaint: Shortness of Breath ED Provider: Mervin White Dx/Rx/DC Orders Clinical Impression: Acute dyspnea Instructions: Diagnosing COPD Prescriptions: New prednisone 20 mg tablet 40 mg PO DAILY 5 Days Qty: 10 0RF albuterol sulfate [Ventolin HFA] 90 mcg/actuation HFA aerosol inhaler 1 - 2 puff inhalation Q4H PRN PRN (Reason: Wheezing) Qty: 1 0RF No Action Inflectra 100 mg recon soln 100 mg IV UD Patient Comments: IV Rx Instructions: 8 MG/KG, [id number] glucosamine HCl 1,500 mg tablet 1,500 mg PO BID Rx Instructions: administer with a meal cyanocobalamin (vitamin B-12) 100 mcg tablet 500 mcg PO DAILY glipizide 10 mg tablet 10 mg PO DAILY cholecalciferol (vitamin D3) 25 mcg (1,000 unit) tablet 25 mcg PO DAILY ginkgo biloba leaf extract 60 mg capsule 60 mg PO DAILY Rx Instructions: give with meal/snack PreserVision AREDS 4,296 mcg-226 mg-90 mg capsule 1 cap PO QDAY tamsulosin 0.4 MG capsule 0.4 mg PO QHS finasteride 5 MG tablet 5 mg PO DAILY methotrexate sodium 2.5 MG tablet 7.5 mg PO Q7D pyridoxine (vitamin B6) 50 MG tablet 100 mg PO QHS fluticasone propionate 1 SPRAY spray,suspension 2 spray NASAL DAILY PRN (Reason: Nasal Congestion) folic acid 1 mg tablet 4 mg PO DAILY oxybutynin chloride 5 MG tablet 5 mg PO QHS amlodipine 2.5 mg tablet 2.5 mg PO DAILY carvedilol 25 mg tablet 25 mg PO BID fluocinolone 0.01 % oil 1 applic topical BID Jardiance 10 mg tablet 10 mg PO DAILY Lumigan 0.01 % drops 1 drp ophthalmic (eye) DAILY Eliquis 5 mg tablet 2.5 mg PO BID multivitamin [Daily Multi-Vitamin] Tablet 1 tab PO DAILY acetaminophen 325 mg Tablet 650 mg PO Q6H PRN PRN (Reason: Pain 1-10 Or Fever >100.7) Qty: 0 0RF spironolacton-hydrochlorothiaz 25-25 mg tablet 1 tab PO DAILY potassium chloride 20 mEq tablet,ER particles/crystals 20 meq PO DAILY Acidophilus Capsule 1 cap PO BID cefdinir 300 mg capsule 300 mg PO BID Qty: 10 0RF metronidazole 500 mg tablet 500 mg PO Q8H Qty: 15 0RF pravastatin 40 mg tablet 40 mg PO QHS Qty: 90 3RF Primary Care Provider: Jose Turner Referrals: Jose Turner MD [Primary Care Provider] - As soon as possible Print Language: Czech Disposition Disposition: Home, Self Care
[2025-07-02 17:45] LABS: SITE Not entered; VBG BASE EXCESS -1 mmol/L (-1.0-3.5); VBG PO2 78 mmHg (25-40); VBG SO2 96 % (50-70); VBG TCO2 24 mmol/L (23-33)
[2025-07-02 18:08] LABS: D-Dimer Quantitative (DVT/PE) 1.32 FEU/ug/m (0.27-0.49)
--- NOTE | 2025-07-02 18:17 | CT_ITS ---
PROCEDURE: CTA CHEST W/WO CONTRAST 07/02/2025 REASON FOR EXAM: SOB, ELEVATED D-DIMER, RECENTLY OFF ANTICOAG TECHNIQUE: CTA CHEST W/WO CONTRAST Multiplanar Sagittal and Coronal images were obtained. CONTRAST: Isovue 370 VOLUME: 100 mL One or more dose reduction techniques were used (e.g., Automated exposure control, adjustment of the mA and/or kV according to patient size, use of iterative reconstruction technique). RADIATION DOSE SUMMARY: CTDlvol: 14+ 9 mGy DLP: 337 mGycm FINDINGS: The peripheral soft tissues are unremarkable. The thyroid is unremarkable. No acute osseous abnormalities are seen, though degenerative changes of the spine and osseous demineralization are present. The gallbladder is present and unremarkable. No mediastinal lymphadenopathy. The thoracic aorta is normal in caliber. The pulmonary arteries are well opacified and normal in caliber, without filling defects through the subsegmental level. The lungs demonstrate moderate centrilobular emphysema and mild paraseptal emphysema. No significant pulmonary nodule is identified. CT/CTA Chest W/WO Contrast IMPRESSION: *No evidence of acute pulmonary embolism to the subsegmental level. *Moderate centrilobular and mild paraseptal emphysema, consistent with underlyi ng chronic obstructive pulmonary disease (COPD). *Osseous demineralization and degenerative changes of the spine. Reading Location: [id number]
[2025-07-02 18:31] LABS: Troponin T High Sensitivity 26 ng/L (<=22)
[2025-07-02] MEDS: 0.9% Normal Saline (500mL Bag) 500 ML 999 ML IV (18:47)
[2025-07-02 20:51] LABS: Troponin T High Sens 2 HR 21 ng/L (<=22)
== END 2025-07-02 23:06 | disposition home or self-care (01) ==
PROVIDERS: Emergency Provider Emergency Medicine; PCP Family Medicine; Visit Provider Emergency Medicine
DX: R06.00 Dyspnea, unspecified (principal); K86.1 Other chronic pancreatitis; E11.9 Type 2 diabetes mellitus without complications; K85.90 Acute pancreatitis without necrosis or infection, unspecified; E78.5 Hyperlipidemia, unspecified; K92.2 Gastrointestinal hemorrhage, unspecified; Z87.891 Personal history of nicotine dependence; I10 Essential (primary) hypertension; J45.909 Unspecified asthma, uncomplicated; K21.9 Gastro-esophageal reflux disease without esophagitis
CPT/HCPCS: 71275; 82803; 84484; 85379; 93005; 94640; 96360; 99284; Q9967; A4216

== ENCOUNTER → 2025-07-02 | Outpatient (CLI) | payer MEDICARE, OTHER, SELFPAY ==
--- NOTE | 2025-07-02 11:12 | RAD_ITS ---
PROCEDURE: CHEST PA AND LATERAL 07/02/2025 REASON FOR EXAM: SHORTNESS OF BREATH TECHNIQUE: CHEST PA AND LATERAL COMPARISON: 02/26/2021. FINDINGS: The heart is normal in size. The lungs are clear. No acute osseous abnormalities. RAD/Chest PA and Lateral IMPRESSION: No acute cardiopulmonary abnormalities. Reading Location: [id number]
[2025-07-02 11:36] LABS: Hematocrit 39.6 % (40-54); Hemoglobin 14.3 g/dL (13.0-16.5); Immature Granulocytes Count 0.050 X10^3/uL (0.0-0.0); Mean Corp Hgb Conc 36.1 g/dL (32-36); Mean Corpuscular Volume 92.3 fL (80-94); Mean Platelet Vol. 10.3 fl (6.2-12.0); NRBC Flagged by Analyzer 0 % (0-5); Platelet Count 263 K/mm3 (150-450); RBC Distribution Width CV 13.2 % (11.6-14.6); RBC Distribution Width SD 42.7 fl (35.1-43.9); Red Blood Count 4.29 M/mm3 (4.6-6.2); White Blood Count 8.0 K/mm3 (4.4-11.0)
[2025-07-02 12:23] LABS: AST(SGOT) 53 U/L (<=37); Alanine Aminotransfer ALT/SGPT 51 U/L (<=46); Albumin, Serum 3.8 g/dL (3.4-4.8); Alkaline Phosphatase 97 U/L (40-129); Anion Gap 15 (5-15); BUN 27 mg/dL (4-19); BUN/Creat Ratio 19.8 RATIO (10-20); Calcium,Total 10.2 mg/dL (7.6-11.0); Carbon Dioxide 19.9 mmol/L (21.0-32.0); Chloride 102 mmol/L (98-108); Cholesterol 143 mg/dL (<=200); Globulin 3.6 g/dL (2.2-4.2); Glucose 190 mg/dL (70-99); Low Density Lipoprotein Calc. 65 mg/dL; Potassium 4.1 mmol/L (3.3-5.1); Triglycerides 107 mg/dL; Very Low Density Lipoprotein 21 mg/dL (5-40); cholesterol:hdl ratio screen 2.51
[2025-07-02 13:55] LABS: Lipase 154 U/L (13-75)
== END | disposition home or self-care (01) ==
LOC: LAB 10:56
PROVIDERS: PCP Family Medicine; Referring Provider Student in an Organized Health Care Education/Training Program; Visit Provider Student in an Organized Health Care Education/Training Program
DX: E11.8 Type 2 diabetes mellitus with unspecified complications (principal); K85.90 Acute pancreatitis without necrosis or infection, unspecified; K86.89 Other specified diseases of pancreas; R06.02 Shortness of breath
CPT/HCPCS: 71046; 80053; 80061; 83036; 83690; 85025

== ENCOUNTER → 2025-07-16 | Outpatient (CLI) | payer MEDICARE, OTHER, SELFPAY ==
--- NOTE | 2025-07-16 12:41 | RAD_ITS ---
PROCEDURE: CHEST PA AND LATERAL 07/16/2025 REASON FOR EXAM: SOB TECHNIQUE: Procedure Code: RADCXR Modality: DX Procedure: CHEST PA AND LATERAL COMPARISON: July 02, 2025 FINDINGS: Hardware: None Heart: Normal-size Mediastinum: Calcified granulomata of the AP window. Lungs: Clear. No pneumothorax or pleural effusion. Bones: Mild curvature thoracolumbar spine to the right. RAD/Chest PA and Lateral IMPRESSION: No acute cardiopulmonary process. Reading Location: [id number]
[2025-07-16 16:17] LABS: Osmolality, Serum 312 mOsm/KG (280-301)
[2025-07-16 18:09] LABS: AST(SGOT) 35 U/L (<=37); Alanine Aminotransfer ALT/SGPT 52 U/L (<=46); Albumin, Serum 4.2 g/dL (3.4-4.8); Alkaline Phosphatase 98 U/L (40-129); Anion Gap 19 (5-15); BUN 45 mg/dL (4-19); BUN/Creat Ratio 21.1 RATIO (10-20); Calcium,Total 10.8 mg/dL (7.6-11.0); Carbon Dioxide 15.7 mmol/L (21.0-32.0); Chloride 95 mmol/L (98-108); Globulin 3.8 g/dL (2.2-4.2); Glucose 222 mg/dL (70-99); Potassium 4.8 mmol/L (3.3-5.1)
[2025-07-16 18:39] LABS: Hematocrit 46.4 % (40-54); Hemoglobin 15.9 g/dL (13.0-16.5); Immature Granulocytes Count 0.080 X10^3/uL (0.0-0.0); Mean Corp Hgb Conc 34.3 g/dL (32-36); Mean Corpuscular Volume 91.2 fL (80-94); Mean Platelet Vol. 12.7 fl (6.2-12.0); NRBC Flagged by Analyzer 0 % (0-5); Platelet Count 258 K/mm3 (150-450); RBC Distribution Width CV 14.4 % (11.6-14.6); RBC Distribution Width SD 47.5 fl (35.1-43.9); Red Blood Count 5.09 M/mm3 (4.6-6.2); White Blood Count 8.4 K/mm3 (4.4-11.0)
== END | disposition home or self-care (01) ==
PROVIDERS: PCP Family Medicine; Referring Provider Family Medicine; Visit Provider Family Medicine
DX: R06.02 Shortness of breath (principal); Z79.899 Other long term (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
CPT/HCPCS: 36415; 71046; 80053; 83930; 84443; 85025

== ENCOUNTER → 2025-07-26 | Outpatient (CLI) | payer MEDICARE, OTHER, SELFPAY ==
[2025-07-26 12:30] LABS: Hematocrit 40.2 % (40-54); Hemoglobin 14.0 g/dL (13.0-16.5); Immature Granulocytes Count 0.050 X10^3/uL (0.0-0.0); Mean Corp Hgb Conc 34.8 g/dL (32-36); Mean Corpuscular Volume 91.2 fL (80-94); Mean Platelet Vol. 10.5 fl (6.2-12.0); NRBC Flagged by Analyzer 0 % (0-5); Platelet Count 211 K/mm3 (150-450); RBC Distribution Width CV 14.6 % (11.6-14.6); RBC Distribution Width SD 47.9 fl (35.1-43.9); Red Blood Count 4.41 M/mm3 (4.6-6.2); White Blood Count 6.0 K/mm3 (4.4-11.0)
[2025-07-26 13:14] LABS: AST(SGOT) 47 U/L (<=37); Alanine Aminotransfer ALT/SGPT 48 U/L (<=46); Albumin, Serum 3.6 g/dL (3.4-4.8); Alkaline Phosphatase 101 U/L (40-129); Anion Gap 11 (5-15); BUN 30 mg/dL (4-19); BUN/Creat Ratio 17.7 RATIO (10-20); Calcium,Total 9.9 mg/dL (7.6-11.0); Carbon Dioxide 23.5 mmol/L (21.0-32.0); Chloride 97 mmol/L (98-108); Globulin 3.2 g/dL (2.2-4.2); Glucose 181 mg/dL (70-99); Potassium 4.2 mmol/L (3.3-5.1)
== END | disposition home or self-care (01) ==
LOC: MTLAB 11:08
PROVIDERS: PCP Family Medicine; Referring Provider Family Medicine; Visit Provider Family Medicine
DX: R06.89 Other abnormalities of breathing (principal); R06.00 Dyspnea, unspecified
CPT/HCPCS: 36415; 80053; 85025

== ENCOUNTER → 2025-07-31 | Outpatient (CLI) | payer MEDICARE, OTHER, SELFPAY ==
--- NOTE | 2025-07-26 16:39 | PAT.ANESEVAL ---
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 When Was Last Pacemaker Check QUESTION #4 FULL TEXT: You/Your Family Experience fever (hyperthermia) with Anesthesia Last Oral Intake Last Oral intake: Last Oral Intake NPO since Meds taken in AM with sips of water? 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 - bridge design engineer: PONV - bridge design engineer Female No 07/26/25 15:55 HX of Motion Sickness No 07/26/25 15:55 HX of N/V After Surgery No 07/26/25 15:55 Non-Smoker Yes 07/26/25 15:55 Duration of Surgery greater Yes 07/26/25 15:55 than 60 minutes Number of Risk Factors 2 07/26/25 15:55 PONV Score Moderate Risk 07/26/25 15:55 Height & Weight Height & Weight: Anesthesia: Height & Weight Height 6 ft 07/02/25 17:06 Respiratory Assessment Respiratory Assessment - bridge design engineer: Respiratory Tract Infection Hx - bridge design engineer Hx Respiratory Tract Infection No 07/26/25 15:55 STOP Sleep Apnea STOP Sleep Apnea - bridge design engineer: STOP Sleep Apnea - bridge design engineer Hx Hypertension Yes: CONTROLLED WITH MED 07/26/25 15:55 Hx Sleep Apnea Yes 07/26/25 15:55 CPAP Yes: NOT USED FOR MANY YRS 07/26/25 15:55 BIPAP No 07/26/25 15:55 Do you snore loudly (louder than talking or can be heard Do you often feel tired/ fatigued/ sleepy during daytime? Has anyone observed you stop breathing during sleep? STOP Results Positive 07/26/25 15:55 QUESTION #5 FULL TEXT : Do you snore loudly (louder than talking or can be heard through closed doors)? 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 Specify any problems Hx of Preganancy in last 3 N/A 07/26/25 15:55 Months Nurse Filling Out Transfusion DSCHRIBER 07/26/25 15:55 & Questions: Date: 07/26/25 07/26/25 15:55 Time: 15:57 07/26/25 15:55 Patient unable to answer at this time (ie. confused, unrespo /Reproduction History /Reproductive History - bridge design engineer: /Reproductive Hx- bridge design engineer Hx Now No 07/26/25 15:55 Gestational Age (in weeks): EDC: Hx Hx Para Hx Section SAB No 07/26/25 15:55 PFSH Medical History (Updated 07/26/25 @ 16:08 by Martha Tony) Loss of hearing Wears dentures Cancer Rash Ambulates with cane Diabetes Prostate disease Bladder disease History of renal disease Anemia High cholesterol Lightheadedness Dietary restriction History of GI bleed COPD (chronic obstructive pulmonary disease) Shortness of breath on exertion Former smoker Amputation toe Glaucoma CPAP (continuous positive airway pressure) dependence Atrial fibrillation Essential hypertension Paroxysmal ventricular tachycardia Premature atrial contractions Cellulitis Psoriasis Arthritis Premature ventricular contraction Supraventricular tachycardia Home Medications ?Medication ?Instructions ?Recorded ?Last Taken ?Type finasteride 5 mg tablet 5 mg PO DAILY prostate 02/03/16 06/21/25 History tamsulosin 0.4 mg capsule 0.4 mg PO QHS prostate 02/03/16 06/20/25 History fluticasone propionate 50 2 spray NASAL DAILY PRN Nasal 06/30/18 04/15/25 History mcg/actuation nasal Congestion spray,suspension methotrexate sodium 2.5 mg tablet 7.5 mg PO Q7D arthritis 06/30/18 06/19/25 History Held on 07/26/25. Instructions: MD Ordered pyridoxine (vitamin B6) 50 mg 100 mg PO QHS supplement 06/30/18 06/20/25 History tablet oxybutynin chloride 5 mg 5 mg PO QHS bladder 10/20/18 06/20/25 History tablet,extended release 24 hr folic acid 1 mg tablet 4 mg PO DAILY supplement 06/01/19 04/15/25 History glucosamine HCl 1,500 mg tablet 1,500 mg PO BID supplemt 02/20/20 06/21/25 History infliximab-dyyb 100 mg intravenous 100 mg IV UD psoriatic arthritis 05/30/20 06/07/25 History solution (Inflectra) Held on 07/26/25. Instructions: MD Ordered cyanocobalamin (vitamin B-12) 100 500 mcg PO DAILY supplement 12/01/20 06/21/25 History mcg tablet cholecalciferol (vitamin D3) 25 25 mcg PO DAILY supplement 06/20/24 06/21/25 History mcg (1,000 unit) tablet ginkgo biloba leaf extract 60 mg 60 mg PO DAILY 06/20/24 06/21/25 History capsule glipizide 10 mg tablet 10 mg PO DAILY dm 06/20/24 04/15/25 History vitamins A,C,Z-tlnq-tktvrq 4,296 1 cap PO QDAY 03/08/25 06/21/25 History mcg-226 mg-90 mg capsule (PreserVision AREDS) apixaban 5 mg tablet (Eliquis) 2.5 mg PO BID 04/15/25 06/21/25 History multivitamin (Daily Multi-Vitamin 1 tab PO DAILY 04/15/25 06/21/25 History tablet) acetaminophen 325 mg tablet 650 mg (2 x 325 mg) PO Q6H PRN PRN 04/17/25 Unknown Rx Pain 1-10 Or Fever >100.7 #0 tabs pravastatin 40 mg tablet 40 mg PO QHS cholesterol #90 tabs 05/15/25 06/20/25 Rx amlodipine 2.5 mg tablet 2.5 mg PO DAILY 06/21/25 06/21/25 History bimatoprost 0.01 % eye drops 1 drp ophthalmic (eye) DAILY 06/21/25 06/21/25 History (Lumigan) carvedilol 25 mg tablet 25 mg PO BID 06/21/25 06/21/25 History empagliflozin 10 mg tablet 10 mg PO DAILY 06/21/25 06/21/25 History (Jardiance) fluocinolone 0.01 % topical body 1 applic topical DAILY 06/21/25 06/21/25 History oil potassium chloride 20 mEq 20 meq PO DAILY 06/28/25 Unknown History tablet,extended release(part/cryst) spironolactone 25 1 tab PO DAILY 06/28/25 Unknown History mg-hydrochlorothiazide 25 mg tablet albuterol sulfate 90 mcg/actuation 1 - 2 puff inhalation Q4H PRN PRN 07/02/25 Unknown Rx aerosol inhaler (Ventolin HFA) Wheezing ##1 Allergy/AdvReac Type Severity Reaction Status Date / Time cephalexin (From Keflex) Allergy Severe rash Verified 07/26/25 15:49 sulfamethoxazole (From Allergy Severe Rash Verified 07/26/25 15:49 Bactrim) trimethoprim (From Bactrim) Allergy Severe Rash Verified 07/26/25 15:49 cefdinir Allergy Mild Abd Verified 07/26/25 15:49 cramps/diarrhea Penicillins Allergy Rash Verified 07/26/25 15:49 doxycycline AdvReac Severe GI upset Verified 07/26/25 15:49 levofloxacin (From Levaquin) AdvReac Other Verified 07/26/25 15:49 Family History Father Cancer Prostate Mother Depression Uncle Myocardial infarction Son CVA (cerebral vascular accident) Surgical History (Updated 07/26/25 @ 16:08 by Martha Tony) History of esophagogastroduodenoscopy (EGD) Hx of colonoscopy History of ERCP History of bilateral cataract extraction History of foot surgery (~02/2023) excision of skin cancer History of hammer toe correction (09/26/20) History of partial amputation of toe History of hernia repair History of tonsillectomy and adenoidectomy Social History Smoking Status: Former smoker pack-years: 30 alcohol intake: current alcohol intake frequency: holidays/special occasions only substance use type: does not use caffeine: Yes Type: coffee Number of servings: 2 what type of physical activity do you participate in: running and weight training frequency: 1-2 times per week Audit: Pertinent Findings Pertinent Findings EKG Perinent findings: halexin, sulfamethoxazole, trimethoprim, cefdinir, Penicillins, doxycycline, levofloxacin [facility] [address] [facility] [place] [address] 12 Lead EKG 07/02/25 1733 MR#: [id number] Acct: [id number] Name: YESSI GRACE Rep #: [id number] : 1945 80 From: Larry Aguero MD Attending Dr: Status: DEP ER Ordering Dr: Mervin White MD Date: 07/02/25 Location: ED Sex: M C Admitted: Test Reason : SOB Blood Pressure : */* mmHG Vent. Rate : 94 BPM Atrial Rate : * BPM P-R Int : * ms QRS Dur : 94 ms QT Int : 364 ms P-R-T Axes : * 20 57 degrees QTcB Int : 455 ms Atrial fibrillation with premature ventricular or aberrantly conducted complexes Abnormal ECG Confirmed by LARRY AGUERO MD ([id number]), senior technical editor ISA ARZATE ([id number]) on 07/03/2025 9:39:01 AM Referred By: Confirmed By: LARRY AGUERO MD 07/03/25 0939 Date Larry Aguero MD Recommendation Anesthesia Recommendation Anesthesia recommendation: OPTIMIZED for anesthesia
[2025-07-31 11:15] VITALS: BP 127/87; PULSE 76; RESP 14; TEMP 36.2; O2SAT 100; BMI 23.1
[2025-07-31] MEDS: Lactated Ringers 1,000 ML 15 ML IV (11:24)
--- NOTE | 2025-07-31 11:29 | PCM.HP.STD ---
HPI - General General Date of Admission: 07/31/25 Date of Service: 07/31/25 Chief Complaint: pancreatitis and pancreatic stones HPI Narrative NAVID GRACE, is a 80 M who presents with the Chief Complaint: Abdominal discomfort [facility] ED 06.21.25 with BRBPR. Work up unremarkable besides a stone in the pancreatic duct. Lipase 450 but asymptomatic. GI recommend outpt f/u. [facility] admission 06.29.25-06.30.25 oswald presenting to the ED with abnormal outpt labs. Lipase was elevated in the . CT showing a 12 mm stone in the pancreatic hear causing obstruction to the main pancreatic duct and CBD. GI consulted and underwent ERCP. ERCP 06.29.25 with multiple gallstones 2 of which were removed. Stents placed. Repeat for lithotripsy and stent exchange OV 07.02.25 patient was shortness of breath since his ERCP. He has some mild abdominal discomfort. He denies ever having severe abdominal pain even prior to his hospitalization. He has also been constipated since this hospitalization. Coding [facility] Medical History Loss of hearing Wears dentures Cancer Rash Ambulates with cane Diabetes Prostate disease Bladder disease History of renal disease Anemia High cholesterol Lightheadedness Dietary restriction History of GI bleed COPD (chronic obstructive pulmonary disease) Shortness of breath on exertion Former smoker Amputation toe Glaucoma CPAP (continuous positive airway pressure) dependence Atrial fibrillation Essential hypertension Paroxysmal ventricular tachycardia Premature atrial contractions Cellulitis Psoriasis Arthritis Premature ventricular contraction Supraventricular tachycardia Home Medications ?Medication ?Instructions ?Recorded ?Last Taken ?Type finasteride 5 mg tablet 5 mg PO DAILY prostate 02/03/16 07/30/25 History tamsulosin 0.4 mg capsule 0.4 mg PO QHS prostate 02/03/16 07/30/25 History fluticasone propionate 50 2 spray NASAL DAILY PRN Nasal 06/30/18 04/15/25 History mcg/actuation nasal Congestion spray,suspension methotrexate sodium 2.5 mg tablet 7.5 mg PO Q7D arthritis 06/30/18 06/19/25 History Held on 07/26/25. Instructions: Ordered pyridoxine (vitamin B6) 50 mg 100 mg PO QHS supplement 06/30/18 07/29/25 History tablet oxybutynin chloride 5 mg 5 mg PO QHS bladder 10/20/18 07/30/25 History tablet,extended release 24 hr folic acid 1 mg tablet 4 mg PO DAILY supplement 06/01/19 07/29/25 History glucosamine HCl 1,500 mg tablet 1,500 mg PO BID supplemt 02/20/20 07/29/25 History infliximab-dyyb 100 mg intravenous 100 mg IV UD psoriatic arthritis 05/30/20 06/07/25 History solution (Inflectra) Held on 07/26/25. Instructions: MD Ordered cyanocobalamin (vitamin B-12) 100 500 mcg PO DAILY supplement 12/01/20 07/28/25 History mcg tablet cholecalciferol (vitamin D3) 25 25 mcg PO DAILY supplement 06/20/24 07/30/25 History mcg (1,000 unit) tablet ginkgo biloba leaf extract 60 mg 60 mg PO DAILY 06/20/24 07/29/25 History capsule glipizide 10 mg tablet 10 mg PO DAILY dm 06/20/24 07/28/25 History vitamins A,C,K-pxwc-kwhszt 4,296 1 cap PO QDAY 03/08/25 07/28/25 History mcg-226 mg-90 mg capsule (PreserVision AREDS) apixaban 5 mg tablet (Eliquis) 2.5 mg PO BID 04/15/25 07/27/25 History multivitamin (Daily Multi-Vitamin 1 tab PO DAILY 04/15/25 07/29/25 History tablet) acetaminophen 325 mg tablet 650 mg (2 x 325 mg) PO Q6H PRN PRN 04/17/25 07/30/25 Rx Pain 1-10 Or Fever >100.7 #0 tabs pravastatin 40 mg tablet 40 mg PO QHS cholesterol #90 tabs 05/15/25 07/29/25 Rx amlodipine 2.5 mg tablet 2.5 mg PO DAILY 06/21/25 07/28/25 History bimatoprost 0.01 % eye drops 1 drp ophthalmic (eye) DAILY 06/21/25 07/30/25 History (Vida) carvedilol 25 mg tablet 25 mg PO BID 06/21/25 07/30/25 History empagliflozin 10 mg tablet 10 mg PO DAILY 06/21/25 07/28/25 History (Jarpaddy) fluocinolone 0.01 % topical body 1 applic topical DAILY 06/21/25 06/21/25 History oil potassium chloride 20 mEq 20 meq PO DAILY 06/28/25 07/29/25 History tablet,extended release(part/cryst) spironolactone 25 1 tab PO DAILY 06/28/25 07/28/25 History mg-hydrochlorothiazide 25 mg tablet albuterol sulfate 90 mcg/actuation 1 - 2 puff inhalation Q4H PRN PRN 07/02/25 Unknown Rx aerosol inhaler (Ventolin HFA) Wheezing ##1 Allergy/AdvReac Type Severity Reaction Status Date / Time cephalexin (From Keflex) Allergy Severe rash Verified 07/31/25 11:05 sulfamethoxazole (From Allergy Severe Rash Verified 07/31/25 11:05 Bactrim) trimethoprim (From Bactrim) Allergy Severe Rash Verified 07/31/25 11:05 cefdinir Allergy Mild Abd Verified 07/31/25 11:05 cramps/diarrhea Penicillins Allergy Rash Verified 07/31/25 11:05 doxycycline AdvReac Severe GI upset Verified 07/31/25 11:05 levofloxacin (From Levaquin) AdvReac Other Verified 07/31/25 11:05 Family History Father Cancer Prostate Mother Depression Uncle Myocardial infarction Son CVA (cerebral vascular accident) Surgical History History of esophagogastroduodenoscopy (EGD) Hx of colonoscopy History of ERCP History of bilateral cataract extraction History of foot surgery (~02/2023) excision of skin cancer History of hammer toe correction (09/26/20) History of partial amputation of toe History of hernia repair History of tonsillectomy and adenoidectomy Social History Smoking Status: Former smoker pack-years: 30 alcohol intake: current alcohol intake frequency: holidays/special occasions only substance use type: does not use caffeine: Yes Type: coffee Number of servings: 2 what type of physical activity do you participate in: running and weight training frequency: 1-2 times per week ROS Constitutional Constitutional: Denies fatigue, fever(s), poor appetite, weight gain or weight loss Gastrointestinal Gastrointestinal: Denies belching, bloating, change in bowel habits, change in stool character, chewing difficulty, coffee ground emesis, constipation, cramping, diarrhea, dyspepsia, dysphagia, early satiety, excessive flatus, fecal incontinence, heartburn, hematemesis, hematochezia, hemorrhoids, loose stools, melena, nausea, odynophagia, rectal bleeding, tenesmus, vomiting or weight changes Vital Signs Vital Signs Vital Signs: 07/31/25 11:15 07/31/25 11:15 Temperature 97.1 F L Temperature Source Temporal Pulse Rate 76 Respiratory Rate 14 Respiratory Pattern Normal Blood Pressure 127/87 H Blood Pressure Mean 100 Blood Pressure Source Monitor Blood Pressure Position Supine Blood Pressure Location Right Arm Pulse Ox 100 Oxygen Delivery Method Room Air Weight Weight: 165 lb 5.547 oz Body Mass Index (BMI) 23.1 Physical Exam Const alert, oriented x3, no apparent distress and healthy appearing General Appearance: cooperative GI normal to inspection, nondistended, normoactive bowel sounds, soft to palpation, non-tender and non-distended Percussion: normal to percussion Rectal Exam: deferred Assessment & Plan Assessment/Plan (1) 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 Patient presented to the emergency department on 06.21.25 for bright red blood per rectum and he was found to have a lipase in the 400s. Hemoglobin was stable and he was discharged. Patient had outpatient labs a few days 06.29.25 later and showed his lipase in the 1999's and he was advised to present to the ED. CT abdomen pelvis showing a 12 mm stone in the pancreatic head causing obstruction. He was admitted and underwent ERCP with sphincterotomy and stent placement. Per Dr. Sullivan, He was unable to remove with the largest stone and he will need to be rescheduled for lithotripsy and stent exchange. I reviewed this with patient he was scheduled for repeat ERCP. Patient has complaints of shortness of breath since waking up from his ERCP. Will order chest x-ray and CBC, CMP and lipase. I did instruct him to follow-up with his primary care provider regarding this. Vitals in the office were stable with his oxygen saturation at 99%. Patient also having some constipation since hospitalization. I did recommend MiraLAX daily as needed. 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
--- NOTE | 2025-07-31 11:34 | PCM.PRE.AN2 ---
ASA Classification* ASA Classification ASA Classification: 3 Assessment & Plan Anesthesia* Anesthesia Assessment Anesthesia Assessment: Discussed sedation and/or anesthesia options, risks, benefits, and alternatives with patient/parents/legal guardian/POA. Questions invited. The patient/parents/legal guardian/POA seems to understand and agrees to proceed with anesthesia plan. Reviewed the physical assessment, medical history, allergy history and patient home medications list prior to surgery/procedure/anesthetic and documented any changes. Performed airway and anesthesia risk assessments. Anesthesia Type Anesthesia Type: MAC History Source History Obtained from:: Patient, Chart and Significant Other (Spouse) Anesthesia Focused Assessment* Temperature: 97.1 F Pulse Rate: 76 Blood Pressure: 127/87 Respiratory Rate: 14 Pulse Ox: 100 Oxygen Delivery Method: Room Air Airway Assessment Mouth opens: >3 cm Mallampati Score: II Teeth Condition: Dentures (Edentulous) Neck Range of motion (ROM): Limited ROM Labs Anesthesia Preop lab: CBC WBC, (4.4-11.0) 6.0 K/mm3 07/26/25, 11:11 RBC, (4.6-6.2) 4.41 M/mm3 L 07/26/25, 11:11 Hgb, (13.0-16.5) 14.0 g/dL 07/26/25, 11:11 Hct, (40-54) 40.2 % 07/26/25, 11:11 Plt Count, (150-450) 211 K/mm3 07/26/25, 11:11 CHEMISTRY Potassium, (3.3-5.1) 4.2 mmol/L 07/26/25, 11:11 Sodium, (133-145) 131 mmol/L L 07/26/25, 11:11 Magnesium, (1.5-2.2) 2.1 mg/dL 06/28/25, 23:43 Phosphorus, (2.7-4.5) 3.5 mg/dL 06/28/25, 23:43 BUN, (4-19) 30 mg/dL H 07/26/25, 11:11 Creatinine, (0.70-1.20) 1.70 mg/dL H 07/26/25, 11:11 Glucose, (70-99) 181 mg/dL H 07/26/25, 11:11 POC Glucose, (74-106) 268 mg/dL H 06/30/25, 11:22 TSH, (0.300-4.200) 2.350 uIU/mL 07/16/25, 12:42 COAG Pre-Assessment Diagnosis/Proposed Procedure Planned Operative Procedure(s): ERCP STENT SWAP AND LITHOTRPSY Anesthesia History Anesthesia History - bilingual hr generalist: Anesthesia History - bilingual hr generalist Hx Hospitalization No 07/26/25 15:55 Any Problems With Anesthesia Yes: SHORTNESS OF BREATH 07/26/25 15:55 Cholinesterase deficiency No 07/26/25 15:55 You/Your Family Experience No 07/26/25 15:55 fever (hyperthermia) with Relationship Recent Exposure to Contagious No 07/31/25 11:15 Disease Does patient have nerve No 07/26/25 15:55 stimulator Patient instructed to have device shut off --Does patient have Pacemaker No 07/31/25 11:15 or ICD? When Was Last Pacemaker Check QUESTION #4 FULL TEXT: You/Your Family Experience fever (hyperthermia) with Anesthesia Last Oral Intake Last Oral intake: Last Oral Intake NPO since 22:00 07/31/25 11:15 Meds taken in AM with sips of No 07/31/25 11:15 water? 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 - bilingual hr generalist: PONV - bilingual hr generalist Female No 07/26/25 15:55 HX of Motion Sickness No 07/26/25 15:55 HX of N/V After Surgery No 07/26/25 15:55 Non-Smoker Yes 07/26/25 15:55 Duration of Surgery greater Yes 07/26/25 15:55 than 60 minutes Number of Risk Factors 2 07/26/25 15:55 PONV Score Moderate Risk 07/26/25 15:55 Height & Weight Height & Weight: Anesthesia: Height & Weight Height 5 ft 11 in 07/31/25 11:15 Weight: 75 kg 07/31/25 11:15 Body Mass Index (BMI) 23.1 07/31/25 11:15 Respiratory Assessment Respiratory Assessment - bilingual hr generalist: Respiratory Tract Infection Hx - bilingual hr generalist Hx Respiratory Tract Infection No 07/26/25 15:55 STOP Sleep Apnea STOP Sleep Apnea - bilingual hr generalist: STOP Sleep Apnea - bilingual hr generalist Hx Hypertension Yes: CONTROLLED WITH MED 07/26/25 15:55 Hx Sleep Apnea Yes 07/26/25 15:55 CPAP Yes: NOT USED FOR MANY YRS 07/26/25 15:55 BIPAP No 07/26/25 15:55 Do you snore loudly (louder than talking or can be heard Do you often feel tired/ fatigued/ sleepy during daytime? Has anyone observed you stop breathing during sleep? STOP Results Positive 07/26/25 15:55 QUESTION #5 FULL TEXT : Do you snore loudly (louder than talking or can be heard through closed doors)? 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 Specify any problems Hx of Preganancy in last 3 N/A 07/26/25 15:55 Months Nurse Filling Out Transfusion DSCHRIBER 07/26/25 15:55 & Questions: Date: 07/26/25 07/26/25 15:55 Time: 15:57 07/26/25 15:55 Patient unable to answer at this time (ie. confused, unrespo /Reproduction History /Reproductive History - bilingual hr generalist: /Reproductive Hx- bilingual hr generalist Hx Now No 07/26/25 15:55 Gestational Age (in weeks): EDC: Hx Hx Para Hx Section SAB No 07/26/25 15:55 Active Medications Active Medications: Current Medications Generic Name Dose Route Start Last Admin Trade Name Freq PRN Reason Stop Dose Admin Lactated Ringer's 1,000 mls @ 15 mls/hr 07/31/25 11:30 07/31/25 11:24 IV 15 mls/hr .[address] Administration PFSH Medical History Loss of hearing Wears dentures Cancer Rash Ambulates with cane Diabetes Prostate disease Bladder disease History of renal disease Anemia High cholesterol Lightheadedness Dietary restriction History of GI bleed COPD (chronic obstructive pulmonary disease) Shortness of breath on exertion Former smoker Amputation toe Glaucoma CPAP (continuous positive airway pressure) dependence Atrial fibrillation Essential hypertension Paroxysmal ventricular tachycardia Premature atrial contractions Cellulitis Psoriasis Arthritis Premature ventricular contraction Supraventricular tachycardia Home Medications ?Medication ?Instructions ?Recorded ?Last Taken ?Type finasteride 5 mg tablet 5 mg PO DAILY prostate 02/03/16 07/30/25 History tamsulosin 0.4 mg capsule 0.4 mg PO QHS prostate 02/03/16 07/30/25 History fluticasone propionate 50 2 spray NASAL DAILY PRN Nasal 06/30/18 04/15/25 History mcg/actuation nasal Congestion spray,suspension methotrexate sodium 2.5 mg tablet 7.5 mg PO Q7D arthritis 06/30/18 06/19/25 History Held on 07/26/25. Instructions: MD Ordered pyridoxine (vitamin B6) 50 mg 100 mg PO QHS supplement 06/30/18 07/29/25 History tablet oxybutynin chloride 5 mg 5 mg PO QHS bladder 10/20/18 07/30/25 History tablet,extended release 24 hr folic acid 1 mg tablet 4 mg PO DAILY supplement 06/01/19 07/29/25 History glucosamine HCl 1,500 mg tablet 1,500 mg PO BID supplemt 02/20/20 07/29/25 History infliximab-dyyb 100 mg intravenous 100 mg IV UD psoriatic arthritis 05/30/20 06/07/25 History solution (Inflectra) Held on 07/26/25. Instructions: MD Ordered cyanocobalamin (vitamin B-12) 100 500 mcg PO DAILY supplement 12/01/20 07/28/25 History mcg tablet cholecalciferol (vitamin D3) 25 25 mcg PO DAILY supplement 06/20/24 07/30/25 History mcg (1,000 unit) tablet ginkgo biloba leaf extract 60 mg 60 mg PO DAILY 06/20/24 07/29/25 History capsule glipizide 10 mg tablet 10 mg PO DAILY dm 06/20/24 07/28/25 History vitamins A,C,B-ppcg-wcmqyx 4,296 1 cap PO QDAY 03/08/25 07/28/25 History mcg-226 mg-90 mg capsule (PreserVision AREDS) apixaban 5 mg tablet (Eliquis) 2.5 mg PO BID 04/15/25 07/27/25 History multivitamin (Daily Multi-Vitamin 1 tab PO DAILY 04/15/25 07/29/25 History tablet) acetaminophen 325 mg tablet 650 mg (2 x 325 mg) PO Q6H PRN PRN 04/17/25 07/30/25 Rx Pain 1-10 Or Fever >100.7 #0 tabs pravastatin 40 mg tablet 40 mg PO QHS cholesterol #90 tabs 05/15/25 07/29/25 Rx amlodipine 2.5 mg tablet 2.5 mg PO DAILY 06/21/25 07/28/25 History bimatoprost 0.01 % eye drops 1 drp ophthalmic (eye) DAILY 06/21/25 07/30/25 History (Lumigan) carvedilol 25 mg tablet 25 mg PO BID 06/21/25 07/30/25 History empagliflozin 10 mg tablet 10 mg PO DAILY 06/21/25 07/28/25 History (Jardiance) fluocinolone 0.01 % topical body 1 applic topical DAILY 06/21/25 06/21/25 History oil potassium chloride 20 mEq 20 meq PO DAILY 06/28/25 07/29/25 History tablet,extended release(part/cryst) spironolactone 25 1 tab PO DAILY 06/28/25 07/28/25 History mg-hydrochlorothiazide 25 mg tablet albuterol sulfate 90 mcg/actuation 1 - 2 puff inhalation Q4H PRN PRN 07/02/25 Unknown Rx aerosol inhaler (Ventolin HFA) Wheezing ##1 Allergy/AdvReac Type Severity Reaction Status Date / Time cephalexin (From Keflex) Allergy Severe rash Verified 07/31/25 11:05 sulfamethoxazole (From Allergy Severe Rash Verified 07/31/25 11:05 Bactrim) trimethoprim (From Bactrim) Allergy Severe Rash Verified 07/31/25 11:05 cefdinir Allergy Mild Abd Verified 07/31/25 11:05 cramps/diarrhea Penicillins Allergy Rash Verified 07/31/25 11:05 doxycycline AdvReac Severe GI upset Verified 07/31/25 11:05 levofloxacin (From Levaquin) AdvReac Other Verified 07/31/25 11:05 Family History Father Cancer Prostate Mother Depression Uncle Myocardial infarction Son CVA (cerebral vascular accident) Surgical History History of esophagogastroduodenoscopy (EGD) Hx of colonoscopy History of ERCP History of bilateral cataract extraction History of foot surgery (~02/2023) excision of skin cancer History of hammer toe correction (09/26/20) History of partial amputation of toe History of hernia repair History of tonsillectomy and adenoidectomy Social History Smoking Status: Former smoker pack-years: 30 alcohol intake: current alcohol intake frequency: holidays/special occasions only substance use type: does not use caffeine: Yes Type: coffee Number of servings: 2 what type of physical activity do you participate in: running and weight training frequency: 1-2 times per week Review of Systems (Anesthesia) ROS Narrative System reviewed and no additional complaints, except as documented.
[2025-07-31 11:37] VITALS: BP 127/87; PULSE 76; RESP 14; TEMP 36.2; O2SAT 100
--- OUTSIDE RECORDS SUMMARY | 2025-12-18 06:12 | XMS RPT_ITS ---
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 Name Role Phone HONORIO MOORE Attending Physician Unavailable ZACH ROGER Primary Care Physician Unavailab HONORIO Haas Attending Physician Unavailable ZACH ROGER Primary Care Physician Unavailab HONORIO Haas Attending Physician Unavailable ZACH ROGER Primary Care Physician Unavailab ZACH Goyal Unavailable Unavailable REJI, CHRISTINA Attending Physician Unavailable ZACH ROGER A Primary Care Physician Unavailab ZACH Goyal A Primary Care Physician Unavailab le SELF, SELF Unavailable Unavailable STAINCOCO MARK JR, JR Attending Physician Unav ailable SELF, SELF Unavailable Unavailable STAINCOCO MARK JR, JR Attending Physician Unav ailable ZACH ROGER A Primary Care Physician Unavailab le COCO POWERS JR, JR Unavailable Unavaila ble REJI, CHRISTINA Attending Physician Unavailable ZACH ROGER A Primary Care Physician Unavailab le REJI, CHRISTINA Attending Physician Unavailable REJI, CHRISTINA Unavailable Unavailable ZACH ROGER A Primary Care Physician Unavailab le REJI, CHRISTINA Attending Physician Unavailable REJI, CHRISTINA Unavailable Unavailable ZACH ROGER A Primary Care Physician Unavailab le PROBLEMS DATE TYPE CONDITION / CODE ATTENDING STATUS [facility] 12/18/2025 Admitting Diagnosis Neoplasm of uncertain behavior of skin / D48.5(ICD-10) HONORIO MOORE Active [facility] 06/12/2025 Admitting Diagnosis Disorder of the skin and subcutaneous tissue, unspecified / L98.9(ICD-10) OSCAR HONORIO Active [facility] 06/12/2025 Admitting Diagnosis Pruritus, unspecified / L29.9(ICD-10) HONORIO MOORE [facility] 05/30/2025 Admitting Diagnosis Chronic kidney disease, stage 3b / N18.32(ICD-10) REJI, CHRISTINA [facility] 01/25/2025 Admitting Diagnosis Other consumer insights intern (current) drug therapy / Z79.899(ICD-10) PRIYA CORDERO [facility] 01/25/2025 Admitting Diagnosis Other proteinuria / R80.8(ICD-10) PRIYA CORDERO [facility] 01/25/2025 Admitting Diagnosis jail (current) use of anticoagulants / Z79.01(ICD-10) PRIYA CORDERO [facility] 01/25/2025 Admitting Diagnosis Bilateral primary osteoarthritis of knee / M17.0(ICD-10) PRIYA CORDERO [facility] 01/25/2025 Admitting Diagnosis jail (current) use of non-steroidal anti-inflammatories (nsaid) / Z79.1(ICD-10) PRIYA CORDERO [facility] 05/07/2024 Admitting Diagnosis Abnormal results of kidney function studies / R94.4(ICD-10) PRIYA CORDERO [facility] 05/07/2024 Admitting Diagnosis Nutritional anemia, unspecified / D53.9(ICD-10) PRIYA CORDERO [facility] 05/07/2024 Admitting Diagnosis Other specified anemias / D64.89(ICD-10) PRIYA CORDERO [facility] 07/04/2023 Admitting Diagnosis 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 biologic / Z79.620(ICD-10) PRIYA CORDERO [facility] 08/19/2021 Admitting Diagnosis Personal history of other diseases of the musculoskeletal system and connective tissue / Z87.39(ICD-10) PRIYA CORDERO [facility] 09/25/2018 Admitting Diagnosis Cervical disc disorder, unspecified, unspecified cervical region / M50.90(ICD-10) PRIYA CORDERO [facility] 09/25/2018 Admitting Diagnosis 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) PRIYA CORDERO [facility] 09/25/2018 Admitting Diagnosis Psoriasis, unspecified / L40.9(ICD-10) PRIYA CORDERO JR, [facility] 09/25/2018 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) REUBENYOMI , [facility] 08/29/2017 Admitting Diagnosis jail (current) use of antimetabolite agent / Z79.631(ICD-10) FERNANDORAJEEVYOMI , [facility] 08/29/2017 Admitting Diagnosis Actinic keratosis / L57.0(ICD-10) PRIYA CORDERO , [facility] 04/18/2017 Admitting Diagnosis Arthropathic psoriasis, unspecified / L40.50(ICD-10) PRIYA CORDERO , [facility] 04/18/2017 Admitting Diagnosis Dyshidrosis (pompholyx) / L30.1(ICD-10) PRIYA CORDERO [facility] 04/18/2017 Admitting Diagnosis Other melanin hyperpigmentation / L81.4(ICD-10) PRIYA CORDERO , [facility] 04/18/2017 Admitting Diagnosis Other seborrheic keratosis / L82.1(ICD-10) PRIYA CORDERO , [facility] 04/18/2017 Admitting Diagnosis Xerosis cutis / L85.3(ICD-10) PRIYA CORDERO [facility] 04/18/2017 Admitting Diagnosis Personal history of other malignant neoplasm of skin / Z85.828(ICD-10) PRIYA CORDERO JR, [facility] 04/18/2017 Admitting Diagnosis Seborrheic dermatitis, unspecified / L21.9(ICD-10) PRIYA CORDERO , [facility] 04/18/2017 Admitting Diagnosis Other skin changes due to chronic exposure to nonionizing radiation / L57.8(ICD-10) PRIYA CORDERO [facility] 04/18/2017 Admitting Diagnosis Dermatitis, unspecified / L30.9(ICD-10) PRIYA CORDERO , [facility] 04/18/2017 Admitting Diagnosis Nocturia / R35.1(ICD-10) PRIYA CORDERO [facility] 04/18/2017 Admitting Diagnosis Other difficulties with micturition / R39.198(ICD-10) PRIYA CORDERO JR, COCO [facility] RESULTS 36 Observed: 12/23/2025 4:31 PM Status: COMPLETED [facility] LVM for patient in regards t o bx results. Encouraged patient to call back. 36 Observed: 12/20/2025 1:47 PM Status: COMPLETED Source: [facility] [employer] [facility] Called and LMOM for p-Pt to return call. 36 Observed: 12/20/2025 1:18 PM Status: COMPLETED Source: [facility] [employer] [facility] Please let the patient know that the spot we removed from his neck under his right ear is a basal cell carcinoma which will require an outpatient surgery. Please refer him to Dr. Shah to have this done treated with Moh's. TISSUE EXAM Collected: 12:19 PM Status: F Source: [facility] TYPE CODE TESTS RESULT OUT OF RANGE REFERENCE UNITS PATHOLOGY 1499 LAB AP CASE REPORT Result Comment: Surgical Pat hology Case: [id number] Authorizing Provider: Honorio Moore MD Collected: 12/18/2025 1219 Ordering Location: [facility] Dermatology - Received: 12/19/2025 1045 [facility] Pathologist: Adan Burch MD Specimen: DERM, Skin, Right Neck PATHOLOGY 34 LAB AP REPORT FINAL DIAGNOSIS NARRATIVE Result Comment: Skin, right neck: Nodular basal cell carcinoma at 0946 EST PATHOLOGY 29 LAB AP CLINICAL INFORMATION Result Comment: Basal cell c arcinoma vs squamous cell carcinoma, right neck Objective: 9 mm pink crusted papule PATHOLOGY [id number] LAB AP HISTO GROSS DESCRIPTION Received in formalin labeled right neck is a skin shave biopsy specimen that measures 1 x 0.8 cm. The skin surface is lightly pigmented and irregular. The specimen is trisected and entirely submitted into a single cassette. PATHOLOGY 769 LAB AP ASR DISCLAIMER Result Comment: Disclaimer: The following statement applies to all immunohistochemistry, in situ hybridization, molecular studies, and immunofluorescence testing, if performed on this case. The use of one or more reagents in the above tests is regulated as an analyte specific reagent (ASR). These tests were developed and their performance characteristics determined by the clinical laboratories of [facility]. They have not been cleared by the US Food and Drug Administration (FDA). The FDA has determined that such clearance or approval is not necessary. All immunostains were performed on paraffin embedded tissue. Appropriate positive and negative controls (where applicable) were run in parallel with the patient's specimen; these controls showed expected staining pattern, with acceptable intensity of staining. Immunohistochemical assays have not been validated on decalcified tissues. Results should be interpreted with caution given the raised possibility of false negativity on decalcified specimens. PATHOLOGY EMBDOC OUTGOING CLINICAL RESULTS EMBEDDED DOCUMENT Performed By: #### [id number] #### Radio Mechanic Apprentice: SOLEDAD BEASLEY ([id number]) [facility] ([facility]) [address] [place] [address] OFFICE VISIT Observed: 12/18/2025 11:30 AM Status: COMPLETED Source: [facility] [id number] Yessi Hatch M Date Provider Department Center 12/18/2025 05790-IWYFHONORIO MOORE [facility] DE None No family history on file Level of Service:56154 DE OFFICE/OUTPATIENT ESTABLISHED MOD MDM 30 MIN (25) Reason for Visit and Comments: Actinic Keratosis [[id number]] - EVAN-08/20/2025,ZB 37 Observed: 12/18/2025 11:30 AM Status: COMPLETED Source: [facility] BIOPSY / SURGICAL AFTERCARE 1. If a [...] does not stop, call our office at [phone]. 6. The wound should improve daily. If [...] of the results in about 2 weeks. PROGRESS NOTE Observed: 12/18/2025 11:30 AM Status: COMPLETED Source: [employer] [facility] DATE OF SERVICE: 12/18/2025 PATIENT NAME: Yessi Hatch : 1945 AGE: 80 y.o. CLINIC NUMBER: [id number] Visit type: Established patient Chief Complaint Patient presents with Actinic Keratosis EVAN-08/20/2025,LUIS Subjective HISTORY OF PRESENT ILLNESS: This is a 80 y.o. male who presents for evaluation of AKs; last seen 08/20/2027. F/u- actinic keratoses located on the Left Forehead, Left Hand - Posterior, Mid Forehead, Right Forehead, Right Hand - Posterior Patient wanted to wait to be have Aks treated due to SCC on L neck Admits redness, roughness, flaking, itching, Patient does not believe that the areas have resolved. F/u-SCC on L neck Stable since last visit. Treated with MOHS with Moosally on 09/13/2025. Patient states he had surgery for this as well Denies itching, bleeding, pain. Denies changes in size, shape, color. Patient still has complaints of itching on both arms Pt. Had had light therapy for actinic keratoses in the past and he did not like it. History of pacemaker/ defibrillator? No History of HIV/ Hep C? No Allergies to Lidocaine, Epinephrine, Latex or Adhesive? No Review of Systems Orders Placed This Encounter Medications fluorouracil (Efudex) 5 % cream Sig: Apply a thin layer to affected areas of face bid x 6 weeks Dispense: 120 g Refill: 3 fluorouracil (Efudex) 5 % solution Sig: Apply to affected areas of scalp bid x 6 weeks Dispense: 30 mL Refill: 3 Vitals: 12/18/25 1116 BP: 120/70 Pulse: 77 Temp: 36.5 ?C (97.7 ?F) PHYSICAL EXAM GENERAL APPEARANCE: alert & oriented x3, pleasant. Well developed, well nourished. PSYCH: appropriate mood and affect DERMATOLOGY: (all measurements are in cm, unless otherwise noted) Skin Exam 1. NEOPLASM OF UNCERTAIN BEHAVIOR OF SKIN Right Neck 9mm pink crusted papule - Skin Biopsy Type of biopsy: tangential Informed consent: discussed and consent obtained Timeout: patient name, date of , surgical site, and procedure verified Anesthesia: the lesion was anesthetized in a standard fashion Anesthetic: 1% lidocaine w/ epinephrine 1-100,000 buffered w/ 8.4% NaHCO3 Instrument used: DermaBlade Hemostasis achieved with: electrodesiccation Outcome: patient tolerated procedure well Post-procedure details: wound care instructions given Specimen A - Tissue exam Differential Diagnosis: BCC vs SCC Check Margins: No Biopsy recommended. Patient expresses understanding and is in agreement with the plan. Biopsy (x1) obtained today. Patient educated that we will call with the biopsy results within 2 weeks. Care instructions reviewed and written instructions provided to patient. 2. ACTINIC KERATOSES (4) Head - Anterior (Face), Left Nasal Sidewall, Right Buccal Cheek, Right Upper Cutaneous Lip Widespread pink scaly macules (see photos) [x]Chronic []Acute []Stable [x]Flaring/Exacerbation Patient educated on actinic keratosis and the possibility of transformation into SCC. Treatment options are discussed with risks and benefits reviewed. Cryotherapy is agreed upon and performed. Reassured that redness, swelling and the formation of a blister at the site of cryotherapy are possible reactions. After care instructions are given and reviewed. Patient to apply Vaseline to treated sites while healing. Cryotherapy Actinic Keratosis: three small focal areas were treated with LN2 Medical Necessity: It was explained to the patient that actinic keratoses are precancerous. Consent: The patient understood all the risks and benefits prior to treatment. The risks explained included scarring, hyper and/or hypopigmentation. Although this treatment is highly effective, recurrences do occur and this was explained to the patient. The patient further understood that these lesions are precancerous and may develop into a malignancy. Method: Liquid nitrogen was used to treat the lesion(s) with two freeze-thaw cycles. Number of lesions treated/ location: L nasal sidewall x1, R upper cutaneous lip x1. Post-op: The patient was instructed to clean the site normally twice a day. Signs of infection were reviewed and patient was instructed to call if he/ she develops increasing pain, purulent drainage, or beefy redness. The patient was informed that a blister may occur at the cryo site and that this is an expected event. Sun protection was reviewed and patient advised to use sunscreen with SPF 30 or greater on exposed skin when outdoors. Post-op instructions were given orally and in writing. Rx: Efudex (fluorouracil) Cream Apply a very thin layer to the areas of the face and scalp twice daily x 6 weeks. Plan to treat the bilateral dorsal hand at his follow up visit. Patient thoroughly educated about treatment with Efudex, [...] into eyes. Wash hands thoroughly after application. - Cryotherapy, skin lesion - Head - Anterior (Face), Left Nasal Sidewall, Right Buccal Cheek, Right Upper Cutaneous Lip This Visit - fluorouracil (Efudex) 5 % cream - Apply a thin layer to affected areas of face bid x 6 weeks 3. 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 Reassured the lesion has resolved. Educated on signs of skin cancer, skin cancer causes, prevention, and risk of developing skin cancers in the future. Sun protection measures reviewed recommending 30 SPF or greater and should do monthly self skin exams and annual full skin exam. No follow-ups on file. Honorio Moore MD 12/18/25 7:56 AM REFERRING MD: 36 Observed: 09/09/2025 4:17 PM Status: COMPLETED Source: [employer] sent a fax back. Viry ent is scheduled for surgery on 09/13/2025 at 9:00am. 36 Observed: 09/09/2025 2:44 PM Status: COMPLETED Source: [facility] LVM for patient in regards t o previous message. 36 Observed: 09/09/2025 11:37 AM Status: COMPLETED Source: [facility] LVM for [facility] i n regards to Class 2A SCC report and next day for surgery. This nurse also sent a fax. 36 Observed: 09/04/2025 10:19 AM Status: COMPLETED Source: [facility] LVM for [facility] i n regards to Class 2A SCC report. 36 Observed: 09/03/2025 1:54 PM Status: COMPLETED Source: [facility] LVM for [facility] dermat[facility] i n regards to Class 2A SCC report. 36 Observed: 08/26/2025 4:33 PM Status: COMPLETED Source: [facility] Faxed received for confirmat ion Alston testing for SCC scanned into media. 36 Observed: 08/26/2025 1:22 PM Status: COMPLETED Source: [facility] Spoke with pt-Per Dr. Moore, advised him of all of the above. Pt educated and verbalized understanding. Referral faxed to Dr. Waters office. [facility] PATH SENDOUT (SENDOUT) Collected: 08/23/2025 10: 24 AM Status: F Source: [facility] TYPE CODE TESTS RESULT OUT OF RANGE REFERENCE UNITS PATHOLOGY [id number] [facility] Result Comment: ORDER COMMEN TS: Results are attached to the pathology report, case # [id number]. See scan in Oncology Social Worker. Performed By: #### [id number] #### Radio Mechanic Apprentice: SOLEDAD BEASLEY ([id number]) [facility] ([facility]) [address] [place] [address] 36 Observed: 08/22/2025 3:35 PM Status: COMPLETED Source: [facility] Called and LMOM for pt/pts w maci to return call. 36 Observed: 08/22/2025 10:54 AM Status: COMPLETED Source: [facility] Called and LMOM for pt/pts w maci to return call. 36 Observed: 08/22/2025 10:19 AM Status: COMPLETED Source: [facility] Please let the patient/his w maci know that the spot we biopsied from the left side of his neck is a squamous cell carcinoma, which will require Moh's surgery. Please help arrange the patient to get this taken care of as soon as possible. TISSUE EXAM Collected: 11:05 AM Status: C Source: [facility] TYPE CODE TESTS RESULT OUT OF RANGE REFERENCE UNITS PATHOLOGY 1499 LAB AP CASE REPORT Result Comment: Surgical Pat hology Case: [id number] Authorizing Provider: Honorio Moore MD Collected: 08/20/2025 1105 Ordering Location: [facility] Dermatology - Received: 08/21/2025 1122 [facility] Pathologist: Adan Burch MD Specimen: DERM, Skin, Left Anterior Neck PATHOLOGY 34 LAB AP REPORT FINAL DIAGNOSIS NARRATIVE Result Comment: Skin, left a nterior neck: Poorly differentiated squamous cell carcinoma at 0944 EDT PATHOLOGY 29 LAB AP CLINICAL INFORMATION Result Comment: Neoplasm of uncertain behavior of skin - D48.5 [ICD-10-CM]; NMSC vs Other 2cm round plaque of the left neck; no cervical, submandibular or supraclavicular adenopathy PATHOLOGY [id number] LAB AP HISTO GROSS DESCRIPTION Received in formalin labeled left anterior neck is a skin shave biopsy specimen that measures 1.4 x 1.2 cm. The skin surface is lightly pigmented and remarkable for an indurated, puckered area that occupies almost the entire specimen. The specimen is sectioned and entirely submitted in one cassette. PATHOLOGY 769 LAB AP ASR DISCLAIMER Result Comment: Disclaimer: The following statement applies to all immunohistochemistry, in situ hybridization, molecular studies, and immunofluorescence testing, if performed on this case. The use of one or more reagents in the above tests is regulated as an analyte specific reagent (ASR). These tests were developed and their performance characteristics determined by the clinical laboratories of [facility]. They have not been cleared by the US Food and Drug Administration (FDA). The FDA has determined that such clearance or approval is not necessary. All immunostains were performed on paraffin embedded tissue. Appropriate positive and negative controls (where applicable) were run in parallel with the patient's specimen; these controls showed expected staining pattern, with acceptable intensity of staining. Immunohistochemical assays have not been validated on decalcified tissues. Results should be interpreted with caution given the raised possibility of false negativity on decalcified specimens. PATHOLOGY EMBDOC OUTGOING CLINICAL RESULTS EMBEDDED DOCUMENT PATHOLOGY 37 LAB AP ADDENDUM 1 Result Comment: Please see [facility] [employer] report [id number] for Decision Dx SCC testing ordered by Dr. Honorio Moore. Report has been scanned into the patient's chart. Addendum electronically signed by Adan Burch MD on 09/03/2025 at 1253 EDT Performed By: #### [id number] #### Radio Mechanic Apprentice: SOLEDAD BEASLEY ([id number]) [facility] ([facility]) [address] [place] [address] 37 Observed: 08/20/2025 10:30 AM Status: COMPLETED Source: [facility] BIOPSY / SURGICAL AFTERCARE 1. If a [...] does not stop, call our office at [phone]. 6. The wound should improve daily. If [...] of the results in about 2 weeks. OFFICE VISIT Observed: 08/20/2025 10:30 AM Status: COMPLETED Source: [facility] [id number] Yessi Hatch 08/1945 M Date Provider Department Center 08/20/2025 58756-JDEAHONORIO LIU [facility] DE None No family history on file Level of Service:12018 DE OFFICE/OUTPATIENT ESTABLISHED MOD MDM 30 MIN (25) Reason for Visit and Comments: Skin Lesion [[id number]] - EVAN-06/12/2025,LUIS PROGRESS NOTE Observed: 08/20/2025 10:30 AM Status: COMPLETED Source: [facility] DATE OF SERVICE: 08/20/2025 PATIENT NAME: Yessi Hatch : 1945 AGE: 80 y.o. CLINIC NUMBER: [id number] Visit type: Established patient Chief Complaint Patient presents with Skin Lesion EVAN-06/12/2025,LUIS Subjective HISTORY OF PRESENT ILLNESS: This is a 80 y.o. male who presents for evaluation of skin lesion; last seen 06/12/2025. F/u-skin lesion left anterior neck Previously treated with efudex x three weeks. Patient was advised to stop treatment at last office visit. Unchanged since last visit. Denies itching, bleeding, pain. Denies changes in size, shape, color. F/u-Itching to both arms, severe at times, unchanged since last visit. Currently treating with: -derma smoohte oil--helps, but only for a short while Denies flares Admits intermittent itching at night Admits scratching, even in his sleep. History of pacemaker/ defibrillator? Yes History of HIV/ Hep C? No Allergies to Lidocaine, Epinephrine, Latex or Adhesive? No Review of Systems Orders Placed This Encounter Medications cetirizine (ZyrTEC) 5 MG tablet Sig: Take 1 tablet at dinnertime Dispense: 30 tablet Refill: 6 fluocinolone ([facility] [employer]-Smoothe) 0.01 % external oil Sig: Apply to itchy areas of skin at bedtime while skin is damp Dispense: 120 mL Refill: 5 Vitals: 08/20/25 1044 BP: 118/70 Pulse: 85 Temp: 36.8 ?C (98.3 ?F) PHYSICAL EXAM GENERAL APPEARANCE: alert & oriented x3, pleasant. Well developed, well nourished. PSYCH: appropriate mood and affect DERMATOLOGY: (all measurements are in cm, unless otherwise noted) Skin Exam 1. NEOPLASM OF UNCERTAIN BEHAVIOR OF SKIN Left Anterior Neck 2cm round plaque of the left neck; no cervical, submandibular or supraclavicular adenopathy Skin Biopsy Type of biopsy: tangential Informed consent: discussed and consent obtained Timeout: patient name, date of , surgical site, and procedure verified Anesthesia: the lesion was anesthetized in a standard fashion Anesthetic: 1% lidocaine w/ epinephrine 1-100,000 buffered w/ 8.4% NaHCO3 Instrument used: DermaBlade Hemostasis achieved with: electrodesiccation Outcome: patient tolerated procedure well Post-procedure details: wound care instructions given Specimen A - Tissue exam Differential Diagnosis: NMSC vs Other Check Margins: No Biopsy recommended. Patient expresses understanding and is in agreement with the plan. Biopsy (x1) obtained today. Patient educated that we will call with the biopsy results within 2 weeks. Care instructions reviewed and written instructions provided to patient. If bx requires Mohs, patient would like to go to [facility]. 2. ACTINIC KERATOSES (5) Left Forehead, Left Hand - Posterior, Mid Forehead, Right Forehead, Right Hand - Posterior Gearhart crusted papules [x]Chronic []Acute []Stable [x]Flaring/Exacerbation Patient educated on actinic keratosis and the possibility of transformation into SCC. Treatment options are discussed with risks and benefits reviewed. Pt. Was made aware that I suspect the spot on his neck is going to be confirmed to be a skin cancer and will require surgery. As such, the patient understands the actinic keratoses are not urgent and he would like to wait on further treatment of these sites until his next visit and I am in agreement with this plan. Will re-check areas at follow up in December. Related Medications fluorouracil (Efudex) 5 % cream Apply a thin layer to affected areas bid x 6 weeks 3. 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 Treatment options, risks, benefits, and expectations reviewed. Start: - Cetirizine 5mg tablet- Take 1 tablet at dinnertime. Continue: - St. Xavier-smoothe oil daily prn itching Follow up for Dec. Honorio Moore MD 08/20/25 7:37 AM REFERRING MD: Keith Observed: 08/20/2025 10:30 AM Status: COMPLETED Source: [place] [facility] Addended by: ANKITA GRULLON on: 08/23/2025 10:24 AM Modules accepted: Orders 36 Observed: 08/14/2025 4:02 PM Status: COMPLETED Source: [facility] Pt LVM, returned call again leaving . Sched pt for Aug 20 at 1030am. Waiting for pt to call back to confirm if this appt works or not. 36 Observed: 08/14/2025 11:33 AM Status: COMPLETED Source: [facility] Patient requesting call back to cancel and reschedule his 08/16/[address] Moore. PROGRESS NOTE Observed: 06/12/2025 11:15 AM Status: COMPLETED Source: [facility] DATE OF SERVICE: 06/12/2025 PATIENT NAME: Yessi Hatch : 1945 AGE: 79 y.o. CLINIC NUMBER: [id number] Visit type: Established patient Chief Complaint Patient presents with Skin Lesion EVAN-10/31/2024,ZB Subjective HISTORY OF PRESENT ILLNESS: This is a 79 y.o. male who presents for evaluation of skin lesion; last seen 10/31/2024. Patient states he is on inflectra infusion for psoriatic arthritis. Pt h/o numerous BCC and SCC. F/u- actinic keratoses located on the Left Forehead, Left Parotid Area, Left Zoroastrianism, Left Temporal Scalp, Left Zygomatic Area, Right Forehead, Right Parotid Area, Right Zoroastrianism, Right Temporal Scalp, Right Zygomatic Area At [...] Systems Orders Placed This Encounter Medications fluocinolone ([facility]. Xavier-Smoothe) 0.01 % external oil Sig: Apply to [...] up in about 8 weeks (around 08/07/2025). Honorio Moore MD 06/12/25 7:49 AM REFERRING MD: OFFICE VISIT Observed: 06/12/2025 11:15 AM Status: COMPLETED Source: [facility] [id number] Yessi Hatch 08/1945 M Date Provider Department Center 06/12/2025 15130-VEVTHONORIO [facility]ORE [facility] [place] None No family history on file Level of Service:95256 DE OFFICE/OUTPATIENT ESTABLISHED MOD MDM 30 MIN Reason for Visit and Comments: Skin Lesion [[id number]] - EVAN-10/31/2024,UrvashiB US RENAL RETROPERITONEAL Observed: 05/22 11:28 AM Status: F Source: [facility] PROCEDURE: US RENAL RETROPER ITONEAL HISTORY: Chronic kidney disease. TECHNIQUE: A renal [...] hydronephrosis or shadowing calculus. 2. Left renal cyst. PROTEIN CREATININE RATIO Collected: 05/22/2025 11:11 AM Status: F Source: [facility] TYPE CODE TESTS RESULT OUT OF RANGE REFERENCE UNITS LAB UTPR URINE TP RANDOM 16 High 0-12 MG/DL LAB UCRR URINE CREATININE RANDOM 48.4 MG/DL Result Comment: NO NORMAL VA LUES ESTABLISHED FOR RANDOM SPECIMENS LAB PCR1 PROTEIN CREATININE RATIO 0.3 Result Comment: REFERENCE RANGES <0.2 NORMAL 0.2-3.5 NON-NEPHROTIC >3.5 NEPHROTIC Performed By: Testing perfor med at [address] [address] URINE MACROSCOPIC Collected: 05/22/2025 11:11 AM Sta tus: F Source: [facility] TYPE CODE TESTS RESULT OUT OF RANGE REFERENCE UNITS LAB UCOL URINE COLOR YELLOW YELLOW LAB [facility] URINE CLARITY CLEAR CLEAR LAB USPG URINE SPEC GRAVITY 1.015 1.010-1.025 LAB UPH URINE PH 6.0 5.0-7.0 LAB AUTP URINE TOTAL PROTEIN NEGATIVE NEGATIVE mg/dl LAB UGL URINE GLUCOSE NEGATIVE NEGATIVE mg/dl LAB UKET URINE KETONE NEGATIVE NEGATIVE mg/dl LAB UBIL URINE BILIRUBIN NEGATIVE NEGATIVE LAB UHGB URINE HEMOGLOBIN NEGATIVE NEGATIVE LAB UNIT URINE NITRATES NEGATIVE NEGATIVE LAB UROB URINE UROBILINOGEN 0.2 0.2-1.0 E.U./dL LAB ULEUK URINE LEUKOTEST NEGATIVE NEGATIVE Performed By: Testing perfor med at [address] [address] URINE MICROSCOPIC Collected: 11:11 AM Status: F Source: [facility] TYPE CODE TESTS RESULT OUT OF RANGE REFERENCE UNITS LAB UWBC URINE WBC'S NEGATIVE NEGATIVE /HPF LAB URBC URINE RBC'S NEGATIVE NEGATIVE /HPF LAB EPI EPITHELIAL CELLS NONE /HPF LAB MUCUS MUCUS NEGATIVE NEGATIVE LAB BACT BACTERIA 1+ Abnormal NEGATIVE LAB HENRY CRYSTAL NONE NONE LAB CASTS CASTS NONE NONE /LPF LAB UCOM URINE COMMENT CULTURE CRITERIA NOT MET, NO CULTURE PERFORMED. Performed By: Testing perfor med at [address] [address] MALB/CREAT RATIO,URINE Collected: 05/22 11:11 AM Status: F Source: [facility] TYPE CODE TESTS RESULT OUT OF RANGE REFERENCE UNITS LAB UCRR URINE CREATININE RANDOM 48.4 MG/DL Result Comment: NO NORMAL VA LUES ESTABLISHED FOR RANDOM SPECIMENS LAB MALB MICROALBUMIN,R ANDOM URINE 45.5 High 0.0-16.7 mg/L LAB MCR MALB/CREAT RATIO,URINE 94.0 High 1.3-30.0 mg MALB/g CREAT Performed By: Testing perfor med at [address] [address] URINE SODIUM RANDOM Collected: 05/22/20 11:11 AM Status: F Source: [facility] TYPE CODE TESTS RESULT OUT OF RANGE REFERENCE UNITS LAB UNAR URINE SODIUM RANDOM 93 High 30-90 mmol/L Performed By: Testing perfor med at [address] [address] CBC Collected: 05/22/2025 10:57 AM Status: F Source: [facility] TYPE CODE TESTS RESULT OUT OF RANGE REFERENCE UNITS LAB WBC WBC COUNT 7.2 3.6-11.0 10*3/uL LAB RBC RBC COUNT 4.28 4.0-6.1 10*6/uL LAB HGB HEMOGLOBIN 14.2 14.0-18.0 G/DL LAB HCT HEMATOCRIT 41.3 Low 42.0-52.0 % LAB MCV MCV 96.6 80.0-100.0 FL LAB MCH MCH 33.2 26.0-35.0 PG LAB MCHC MCHC 34.3 27.0-37.0 G/DL LAB RDW RDW 13.7 11.5-14.5 % LAB PLTC PLATELET COUNT 283 130-400 10*3/uL LAB MPV MPV 8.6 7.4-11.0 FL LAB DTYPE DTYPE AUTO DIFF % LAB NEUT NEUTROPHIL 47.1 37.0-75.0 % LAB ALYMP LYMPHOCYTE 21.2 20.0-55.0 % LAB AOMONO MONOCYTE 10.0 0.0-10.0 % LAB EOS EOSINOPHIL 19.1 High 0.0-11.0 % LAB BASO BASOPHIL 2.6 High 0.0-2.0 % LAB ANC ABSOLUTE NEUTROPHIL COUNT 3.4 1.4-6.5 10*3/uL LAB ALYM ABSOLUTE LYMPHOCYTE 1.5 1.2-3.4 10*3/uL LAB AMONO ABSOLUTE MONOCYTE 0.7 0.0-0.7 10*3/uL LAB AEO ABSOLUTE EOS 1.4 High 0.0-0.7 10*3/uL LAB ABAS ABSOLUTE BAS 0.2 0.0-0.2 10*3/uL Performed By: Testing perfor med at [address] [address] RENAL PANEL,FASTING Collected: 05/22/20 10:57 AM Status: F Source: [facility] TYPE CODE TESTS RESULT OUT OF RANGE REFERENCE UNITS LAB GLF GLUCOSE FASTING 154 High 70-100 MG/DL Result Comment: NORMAL <100 mg/dL PREDIABETES 101-126 mg/dL DIABETES 126 mg/dL or higher LAB BUN BLOOD UREA NITROGEN 27 High 7-20 mg/dL LAB CRET CREATININE SERUM 1.70 High 0.70-1.20 mg/dL LAB NA SODIUM 138 137-145 MMOL/L LAB K POTASSIUM 4.8 3.5-5.1 MMOL/L LAB CL CHLORIDE 103 98-107 MMOL/L Result Comment: Please note: Triglyceride levels of 600mg/dL or higher may positively bias chloride results by approximately 2.1 mmol LAB CO2 CO2 27 22-30 MMOL/L LAB ALB ALBUMIN 4.6 3.5-5.0 g/dL LAB CA CALCIUM 10.4 High 8.4-10.2 mg/dL LAB PHOS PHOSPHOROUS 4.2 2.5-4.5 MG/DL LAB ESTGFR ESTIMATED GFR 41 ml/min/1 .73sq.m LAB GFRCOM GFR Information Average GFR for 70+ years old = 75. Result Comment: Chronic Kidn ey disease, GFR = <60. Kidney failure, GFR = <15. The GFR estimate is not adjusted for extreme body surface area or acute process, nor has it been validated for women or ethnic groups other than and . Performed By: Testing perfor med at [address] [address] MAGNESIUM Collected: 5 10:57 AM Status: F Source: [facility] TYPE CODE TESTS RESULT OUT OF RANGE REFERENCE UNITS LAB MG MAGNESIUM 2.2 1.6-2.3 MG/DL Performed By: Testing perfor med at [address] [address] URIC ACID Collected: 5 10:57 AM Status: F Source: [facility] TYPE CODE TESTS RESULT OUT OF RANGE REFERENCE UNITS LAB URIC URIC ACID 7.1 High 2.4-7.0 MG/DL Performed By: Testing perfor med at [address] [address] PTH,INTACT Collected: 5 10:57 AM Status: F Source: [facility] TYPE CODE TESTS RESULT OUT OF RANGE REFERENCE UNITS LAB AIPTH PTH,INTACT 34.7 14.5-75.2 pg/mL Performed By: Testing perfor med at [address] [address] 25 0H VITAMIN D LEVEL Collected: 2024 10:57 AM Status: F Source: [facility] TYPE CODE TESTS RESULT OUT OF RANGE REFERENCE UNITS LAB VITD 25 0H VITAMIN D LEVEL 80.5 NG/ML Result Comment: DEFICIENT <20 NG/ML INSUFFICIENT 20-<30 NG/ML SUFFICIENT 30-100 NG/ML POTENTIAL TOXICITY >100 NG/ML Performed By: Testing perfor med at [address] [address] ENCOUNTERS ADMIT/DISCHARGE ACCOUNT NUMBER ADMITTING ENCOUNTER CLASS LOC ATION SOURCE 12/18/2025/ 6 [id number] [facility] [address] [place] [address] 08/20/2025/ 5 [id number] [facility] [address] [place] [address] 08/05/2025 [id number] Ambulatory BuildinRR [facility] 06/12/2025/ 5 [id number] [facility] [address] [place] [address] 05/30/2025 [id number] Ambulatory BuildinN2 [facility] 05/22/2025 [id number] Ambulatory BuildinLB [facility] 05/22/2025 [id number] Ambulatory BuildinUS [facility] 02/28/2025 [id number] Ambulatory BuildinN2 [facility] 01/25/2025 [id number] Ambulatory BuildinRR [facility] PAYERS ENCOUNTER GUARANTOR PAYER SUBSCRIBER SOURCE 12/18/2025 Primary Insurance:MEDICAREPo licy Number: [id number] Date:7085-64-87Kryi Name:MedicarePO [address] [address]EE: YESSI HATCHB: [id number] [id number] [place] [address] 12/18/2025 Secondary Insurance:[employer] [facility] Number: [id number] Date:3934-81-72Iiaq Name:Commercial YESSI MACKENZIEB: [id number] [address] 08/20/2025 Primary Insurance:MEDICAREPo licy Number: [id number] Date:5932-65-56Bada Name:[place] [address]NV: YESSI HATCHB: [id number] [address] 08/20/2025 Secondary Insurance:[facility] Number: [id number] Date:9964-91-10Pkwt Name:Commercial YESSI HATCHB: [id number] [place] [id number] [place] [address] 08/05/2025 YESSI Grant GURDEEPB: [id number] [place] [id number]: () Primary Insurance:MEDICARE A AND BPolicy Number: [id number] Date:3083-56-79Gofc Name:[facility] YESSI Grant GURDEEPB: [id number] [place], [place] [address] [place] [address] 08/05/2025 YESSI Rudy GURDEEPB: [id number] [place], [place] [address]Vdo: (HP) Secondary Insurance:[facility] Number: [id number] Date:0850-05-34Pgyl Name:MANAGED CARE YESSI MACKENZIEB: [id number] [place], [place] [address]Wch: (HP) [facility] 06/12/2025 Primary Insurance:MEDICAREPo licy Number: [id number] Date:5220-25-92Gxfa Name:MedicarePO [address] [address]SJ: YESSI HATCHB: [id number] [address] 06/12/2025 Secondary Insurance:[facility] Number: [id number] Date:3740-92-21Zkqq Name:Commercial YESSI MACKENZIEB: [id number] [address] 05/30/2025 YESSI MACKENZIEB: [id number] [place] [id number]: (HP) Primary Insurance:MEDICARE A AND BPolicy Number: [id number] Date:5961-38-90Gyyz Name:CARE YESSI MACKENZIEB: [id number] [id number] [place] [address] 05/30/2025 YESSI MACKENZIEB: [id number] [address] [address]Wpk: (HP) Secondary Insurance:[facility] LIFE INSURANCE COPolicy Number: [id number] Date:2318-27-53Abdc Name:[facility] [address]SX: YESSI MACKENZIEB: [id number] [address] [address] [facility] 05/22/2025 YESSI MACKENZIEB: [address] [address]Bhv: (HP) Primary Insurance:MEDICARE A AND BPolicy Number: [id number] Date:0750-90-09Pjps Name:CARE YESSI MACKENZIEB: [id number] [id number] [place] [address] 05/22/2025 YESSI MACKENZIEB: [address] [address]Mao: (HP) Secondary Insurance:[facility] [employer] COPolicy Number: [id number] Date:4934-99-64Iwzh Name:[place], [place] [address]YC: YESSI MACKENZIEB: [id number] [phone] [place] [address] 05/22/2025 YESSI MACKENZIEB: [address] [address]Xfk: (HP) Primary Insurance:MEDICARE A AND BPolicy Number: [id number] Date:9249-17-23Nclo Name:CARE YESSI MACKENZIEB: [id number] [address] [address] [facility] 05/22/2025 YESSI MACKENZIEB: [address] [address]Jvb: (HP) Secondary Insurance:[facility] [employer] INSURANCE COPolicy Number: [id number] Date:9992-66-87Yljp Name:[facility]ARE[facility] CENTERLivia [place], [place] [address]ZN: YESSI HATCHB: [id number] [address] [address] [facility] 02/28/2025 YESSI HATCHDOB: [place], [place] [address]Hjc: (HP) Primary Insurance:MEDICARE A AND BPolicy Number: [id number] Date:1919-09-55Xgbi Name:CARE YESSI MACKENZIEB: [id number] [place], [place] [id number] [place] [address] 02/28/2025 YESSI SANTACRUZMICHAELSETHDOB: [place], [place] [address]Ssk: (HP) Secondary Insurance:[facility] Number: [id number] Date:8155-43-02Jqnb Name:MANAGED CARE YESSI MACKENZIEB: [id number] [place], [place] [address] [place] [address] 01/25/2025 YESSI HATCHDOB: [place], [place] [address]Dnz: (HP) Primary Insurance:MEDICARE A AND BPolicy Number: [id number] Date:2610-83-55Txfv Name:CARE YESSI MACKENZIEB: [id number] [place], [place] [address] [place] [address] 01/25/2025 YESSI HATCHDOB: [place], [place] [address]Fxj: (HP) Secondary Insurance:[employer] [facility] Number: [id number] Date:6435-98-82Yicl Name:MANAGED CARE YESSI MACKENZIEB: [id number] [place], [place] [address]Pac: () [facility]
== END | disposition home or self-care (01) ==
LOC: EN 12-24 11:57
PROVIDERS: PCP Family Medicine; Referring Provider Family Medicine; Visit Provider Internal Medicine Gastroenterology
DX: Z53.09 Procedure and treatment not carried out because of other contraindication (principal); J44.9 Chronic obstructive pulmonary disease, unspecified; I48.91 Unspecified atrial fibrillation; E11.9 Type 2 diabetes mellitus without complications; K86.89 Other specified diseases of pancreas; E78.00 Pure hypercholesterolemia, unspecified; Z79.84 Long term (current) use of oral hypoglycemic drugs; Z79.01 Long term (current) use of anticoagulants; Z79.899 Other long term (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; I10 Essential (primary) hypertension; Z87.891 Personal history of nicotine dependence; R06.02 Shortness of breath; K59.00 Constipation, unspecified; K85.90 Acute pancreatitis without necrosis or infection, unspecified
CPT/HCPCS: 82962; 93005; J2405

== ENCOUNTER → 2025-08-01 | Outpatient (CLI) | payer MEDICARE, OTHER, SELFPAY ==
[2025-08-01 11:39] LABS: Hematocrit 38.0 % (40-54); Hemoglobin 13.1 g/dL (13.0-16.5); Immature Granulocytes Count 0.030 X10^3/uL (0.0-0.0); Mean Corp Hgb Conc 34.5 g/dL (32-36); Mean Corpuscular Volume 92.0 fL (80-94); Mean Platelet Vol. 9.7 fl (6.2-12.0); NRBC Flagged by Analyzer 0 % (0-5); Platelet Count 273 K/mm3 (150-450); RBC Distribution Width CV 15.4 % (11.6-14.6); RBC Distribution Width SD 50.6 fl (35.1-43.9); Red Blood Count 4.13 M/mm3 (4.6-6.2); White Blood Count 4.6 K/mm3 (4.4-11.0)
[2025-08-01 12:07] LABS: Pro- Brain NATRIURETIC PEPTIDE 3395 pg/mL (<=1800)
[2025-08-01 12:08] LABS: Anion Gap 11 (5-15); BUN 16 mg/dL (4-19); BUN/Creat Ratio 13.9 RATIO (10-20); Calcium,Total 9.4 mg/dL (7.6-11.0); Carbon Dioxide 20.2 mmol/L (21.0-32.0); Chloride 106 mmol/L (98-108); Glucose 153 mg/dL (70-99); Potassium 4.0 mmol/L (3.3-5.1)
== END | disposition home or self-care (01) ==
LOC: LAB 10:41
PROVIDERS: PCP Family Medicine; Referring Provider Nurse Practitioner Gerontology; Visit Provider Nurse Practitioner Gerontology
DX: R06.02 Shortness of breath (principal)
CPT/HCPCS: 36415; 80048; 83880; 85025

== ENCOUNTER → 2025-08-08 | Outpatient (CLI) | payer MEDICARE, OTHER, SELFPAY ==
[2025-08-08 12:52] LABS: Anion Gap 11 (5-15); BUN 19 mg/dL (4-19); BUN/Creat Ratio 13.5 RATIO (10-20); Calcium,Total 9.8 mg/dL (7.6-11.0); Carbon Dioxide 25.4 mmol/L (21.0-32.0); Chloride 102 mmol/L (98-108); Glucose 181 mg/dL (70-99); Potassium 4.0 mmol/L (3.3-5.1)
== END | disposition home or self-care (01) ==
LOC: MTLAB 10:38
PROVIDERS: PCP Family Medicine; Referring Provider Nurse Practitioner Gerontology; Visit Provider Nurse Practitioner Gerontology
DX: N18.32 Chronic kidney disease, stage 3b (principal)
CPT/HCPCS: 36415; 80048

== ENCOUNTER → 2025-08-22 | Outpatient (CLI) | payer MEDICARE, OTHER, SELFPAY ==
--- NOTE | 2025-08-22 06:15 | ECHOCS_ITS ---
Reason For Study Reason For Study: Dyspnea/SOB Procedure This was a 2D Doppler, Color Flow transthoracic echocardiogram. The study was technically difficult. Contrast injection was performed. Exam performed in department. Left Ventricle Normal LV size. Mild concentric left ventricular hypertrophy. The left ventricular ejection fraction is 60 %. Diastolic dysfunction is present. Unable to grade. Right Ventricle Normal right ventricle. Atria There is severe biatrial dilatation. Mitral Valve Mild (1+) mitral valve insufficiency. Tricuspid Valve Mild (1+) tricuspid valve insufficiency. Normal pulmonary artery pressure. Aortic Valve Aortic sclerosis, no stenosis. Pulmonic Valve The pulmonic valve is not well visualized. Trivial pulmonic valve insufficiency. Great Vessels Normal sized aortic root. Pericardium/Pleural No pericardial effusion. Medication 22 gauge I.V. with prn adaptor inserted into right arm. Diluted definity 1ml given slow IV push to enhance endocardial definition. MMode/2D Measurements & Calculations LVIDd: 4.4 cm IVSd: 0.85 cm Ao root diam: 3.5 cm LVIDs: 3.0 cm LVPWd: 1.2 cm RVDd: 3.7 cm FS: 30.5 % LAV(MOD-bp): 76.3 ml LVAd ap4: 28.0 cm2 SV(MOD-sp4): 46.7 ml LAV(MOD-bp) Indexed: 39.0 ml/m2 LVLd ap4: 7.5 cm SI(MOD-sp4): 23.9 ml/m2 LAV(MOD-sp2): 74.3 ml EDV(MOD-sp4): 85.2 ml LAV(MOD-sp4): 69.2 ml EDV(sp4-el): 88.5 ml LVAs ap4: 17.2 cm2 LVLs ap4: 6.5 cm ESV(MOD-sp4): 38.4 ml ESV(sp4-el): 38.8 ml EF(MOD-sp4): 54.9 % EF(sp4-el): 56.1 % SV(sp4-el): 49.7 ml LA A4 area: 22.9 cm2 LA dimension(2D): 4.2 cm RA A4 area: 24.5 cm2 TAPSE: 1.9 cm Doppler Measurements & Calculations MV E max chikis: 88.1 cm/sec MV V2 max: 88.0 cm/sec Ao V2 max: 93.2 cm/sec MV max P.1 mmHg Ao max P.5 mmHg MV V2 mean: 46.4 cm/sec MV mean P.1 mmHg MV V2 VTI: 20.2 cm LV V1 max: 59.4 cm/sec TR max chikis: 208.8 cm/sec LV V1 max P.4 mmHg TR max P.1 mmHg LV V1 mean P.73 mmHg LV V1 mean: 39.6 cm/sec LV V1 VTI: 12.9 cm ECHO/Echo Complete W/ Contrast Interpretation Summary Mild concentric left ventricular hypertrophy. The left ventricular ejection fraction is 60 %. Diastolic dysfunction is present. Unable to grade. There is severe biatrial dilatation. Mild (1+) mitral valve insufficiency. Mild (1+) tricuspid valve insufficiency. Aortic sclerosis, no stenosis. Ordering Physician: Kayy Minaya Referring Physician: Kayy Minaya Performed By: Edgar Landry RCS
--- NOTE | 2025-08-22 10:19 | STRESSREP_ITS ---
Stress Test Report Date: 08/22/2025 Procedure: Pharmacologic stress nuclear imaging study Indications: Dyspnea Consent: Per the patient Procedure: The patient underwent pharmacologic (Regadenoson 0.4mg ) evaluation with a peak heart rate of 95 beats per minute (68%predicted maximal heart rate) and a peak blood pressure of 120/64 mmHg. The baseline ECG demonstrated atrial fibrillation. The peak pharmacologic ECG failed to show any ischemic changes. Baseline atrial fibrillation. There was no complaint of chest discomfort during pharmacologic infusion or recovery. The patient was injected with 12.4 millicuries of technetium 99m Cardiolite and subsequently rest SPECT Cardiolite nuclear imaging was obtained in the horizontal long, vertical long, and short axis views. The patient underwent pharmacologic (Regadenoson) evaluation. The patient was injected with 36.1 millicuries of technetium 99m Cardiolite and subsequently stress SPECT Car diolite nuclear imaging was obtained in the horizontal long, vertical long, and short axis views. A gated Cardiolite study at peak stress was obtained. The examination was stopped secondary to completion of protocol. Rest and stress SPECT Cardiolite nuclear imaging status post realignment, normalization, and attenuation correction demonstrate no fixed or reversible perfusion defects. There is end systolic thickening and brightening. The gated Cardiolite study demonstrates myocardial thickening and inward wall motion. The reported LVEF is 70%. Impression: 1. Pharmacologic (Regadenoson) evaluation 2. Peak pharmacologic ECG with no ischemic changes. 3. Baseline atrial fibrillation. 5. Rest and stress SPECT Cardiolite nuclear imaging demonstrate relative uniform tracer uptake and myocardial perfusion appearing within normal limits. 6. The gated Cardiolite study reports an LVEF of 70%. This note was generated with [employer] software. It may contain incorrect words, spelling, and punctuation that were not noted in checking the note before signing.
== END | disposition home or self-care (01) ==
LOC: CVS 06:03
PROVIDERS: PCP Family Medicine; Referring Provider Nurse Practitioner Gerontology; Visit Provider Nurse Practitioner Gerontology
DX: R06.09 Other forms of dyspnea (principal); R53.83 Other fatigue; R42 Dizziness and giddiness
CPT/HCPCS: 78452; 93017; 93306; A9500; Q9957; A4216; C8929; J2785

== ENCOUNTER 2025-08-29 11:02 | Outpatient (RCR) | payer MEDICARE, OTHER, SELFPAY ==
[2025-08-29 12:32] LABS: Hematocrit 44.2 % (40-54); Hemoglobin 14.9 g/dL (13.0-16.5); Immature Granulocytes Count 0.030 X10^3/uL (0.0-0.0); Mean Corp Hgb Conc 33.7 g/dL (32-36); Mean Corpuscular Volume 95.5 fL (80-94); Mean Platelet Vol. 10.5 fl (6.2-12.0); NRBC Flagged by Analyzer 0 % (0-5); Platelet Count 281 K/mm3 (150-450); RBC Distribution Width CV 13.8 % (11.6-14.6); RBC Distribution Width SD 47.6 fl (35.1-43.9); Red Blood Count 4.63 M/mm3 (4.6-6.2); White Blood Count 7.5 K/mm3 (4.4-11.0)
[2025-08-29 13:46] LABS: AST(SGOT) 38 U/L (<=37); Alanine Aminotransfer ALT/SGPT 37 U/L (<=46)
[2025-08-29 13:47] LABS: CRP < 3.00 mg/L (0.0-3.0)
== END 2025-08-29 18:00 | disposition home or self-care (01) ==
LOC: LAB 11:02
PROVIDERS: PCP Family Medicine; Referring Provider Internal Medicine Rheumatology; Visit Provider Internal Medicine Rheumatology
DX: R79.89 Other specified abnormal findings of blood chemistry (principal); M17.0 Bilateral primary osteoarthritis of knee; M50.90 Cervical disc disorder, unspecified, unspecified cervical region; D53.9 Nutritional anemia, unspecified; D64.89 Other specified anemias; L30.1 Dyshidrosis [pompholyx]; L81.4 Other melanin hyperpigmentation; L82.1 Other seborrheic keratosis; L21.9 Seborrheic dermatitis, unspecified; L40.3 Pustulosis palmaris et plantaris; L57.8 Other skin changes due to chronic exposure to nonionizing radiation; L85.3 Xerosis cutis; L57.0 Actinic keratosis; R80.8 Other proteinuria; Z79.899 Other long term (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; Z79.631 Long term (current) use of antimetabolite agent; R35.1 Nocturia; Z79.620 Long term (current) use of immunosuppressive biologic; Z87.39 Personal history of other diseases of the musculoskeletal system and connective tissue; Z85.828 Personal history of other malignant neoplasm of skin; R39.198 Other difficulties with micturition; Z79.01 Long term (current) use of anticoagulants; R94.4 Abnormal results of kidney function studies
CPT/HCPCS: 82565; 84450; 84460; 85025; 85652; 86140

== ENCOUNTER → 2025-09-10 | Outpatient (CLI) | payer MEDICARE, OTHER, SELFPAY ==
[2025-09-10 15:36] LABS: AST(SGOT) 40 U/L (<=37); Alanine Aminotransfer ALT/SGPT 48 U/L (<=46); Albumin, Serum 4.1 g/dL (3.4-4.8); Alkaline Phosphatase 95 U/L (40-129); Anion Gap 10 (5-15); BUN 31 mg/dL (4-19); BUN/Creat Ratio 19.3 RATIO (10-20); Calcium,Total 10.6 mg/dL (7.6-11.0); Carbon Dioxide 26.2 mmol/L (21.0-32.0); Chloride 100 mmol/L (98-108); Globulin 3.6 g/dL (2.2-4.2); Glucose 191 mg/dL (70-99); Potassium 4.7 mmol/L (3.3-5.1)
[2025-09-10 15:57] LABS: Hematocrit 45.0 % (40-54); Hemoglobin 15.1 g/dL (13.0-16.5); Immature Granulocytes Count 0.020 X10^3/uL (0.0-0.0); Mean Corp Hgb Conc 33.6 g/dL (32-36); Mean Corpuscular Volume 93.6 fL (80-94); Mean Platelet Vol. 11.0 fl (6.2-12.0); NRBC Flagged by Analyzer 0 % (0-5); Platelet Count 240 K/mm3 (150-450); RBC Distribution Width CV 13.2 % (11.6-14.6); RBC Distribution Width SD 44.8 fl (35.1-43.9); Red Blood Count 4.81 M/mm3 (4.6-6.2); White Blood Count 7.1 K/mm3 (4.4-11.0)
== END | disposition home or self-care (01) ==
LOC: MTLAB 12:35
PROVIDERS: PCP Family Medicine; Referring Provider Family Medicine; Visit Provider Family Medicine
DX: E11.8 Type 2 diabetes mellitus with unspecified complications (principal)
CPT/HCPCS: 36415; 80053; 85025

== ENCOUNTER → 2025-09-12 | Outpatient (CLI) | payer MEDICARE, OTHER, SELFPAY ==
--- NOTE | 2025-09-12 10:58 | CDU_ITS ---
Reason For Study VL/Carotid Duplex Ultrasound
== END | disposition home or self-care (01) ==
LOC: CVS 10:57
PROVIDERS: PCP Family Medicine; Referring Provider Nurse Practitioner Gerontology; Visit Provider Nurse Practitioner Gerontology
DX: R42 Dizziness and giddiness (principal)
CPT/HCPCS: 93880

== ENCOUNTER 2025-09-23 10:39 | Day surgery (SDC) | payer MEDICARE, OTHER, SELFPAY ==
--- NOTE | 2025-09-19 13:47 | PAT.ANESEVAL ---
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 When Was Last Pacemaker Check QUESTION #4 FULL TEXT: You/Your Family Experience fever (hyperthermia) with Anesthesia Last Oral Intake Last Oral intake: Last Oral Intake NPO since Meds taken in AM with sips of water? 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 Female No 09/19/25 10:45 HX of Motion Sickness No 09/19/25 10:45 HX of N/V After Surgery No 09/19/25 10:45 Non-Smoker No 09/19/25 10:45 Duration of Surgery greater No 09/19/25 10:45 than 60 minutes Number of Risk Factors PONV Score Height & Weight Height & Weight: Anesthesia: Height & Weight Height 5 ft 11 in 08/29/25 10:15 Respiratory Assessment Respiratory Assessment - machining and assembly supervisor: Respiratory Tract Infection Hx - machining and assembly supervisor Hx Respiratory Tract Infection No 09/19/25 10:45 STOP Sleep Apnea STOP Sleep Apnea - machining and assembly supervisor: STOP Sleep Apnea - machining and assembly supervisor Hx Hypertension Yes: CONTROLLED ON MED 09/19/25 10:45 Hx Sleep Apnea Yes 09/19/25 10:45 CPAP No 09/19/25 10:45 BIPAP No 09/19/25 10:45 Do you snore loudly (louder than talking or can be heard Do you often feel tired/ fatigued/ sleepy during daytime? Has anyone observed you stop breathing during sleep? STOP Results Positive 09/19/25 10:45 QUESTION #5 FULL TEXT : Do you snore loudly (louder than talking or can be heard through closed doors)? 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 Specify any problems Hx of Preganancy in last 3 N/A 09/19/25 10:45 Months Nurse Filling Out Transfusion VCHRISTIN 09/19/25 10:45 & Questions: Date: 09/19/25 09/19/25 10:45 Time: 10:46 09/19/25 10:45 Patient unable to answer at this time (ie. 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: /Reproductive Hx- machining and assembly supervisor Hx Now No 09/19/25 10:45 Gestational Age (in weeks): EDC: Hx Hx Para Hx Section SAB No 09/19/25 10:45 Does the father of the baby or his family experience fever w Father of the baby Malignant Hypertension history comment [facility] Medical History (Updated 09/19/25 @ 10:45 by Maddi Riojas) History of echocardiogram History of stress test Cardiology follow-up encounter Hx of squamous cell carcinoma of skin Loss of hearing Wears dentures Cancer Rash Ambulates with cane Diabetes Prostate disease Bladder disease History of renal disease Anemia High cholesterol Lightheadedness Dietary restriction History of GI bleed COPD (chronic obstructive pulmonary disease) Shortness of breath on exertion Former smoker Amputation toe Glaucoma CPAP (continuous positive airway pressure) dependence Atrial fibrillation Essential hypertension Paroxysmal ventricular tachycardia Premature atrial contractions Cellulitis Psoriasis Arthritis Premature ventricular contraction Supraventricular tachycardia Home Medications Medication Instructions Recorded Last Taken Type finasteride 5 mg tablet 5 mg PO DAILY prostate 02/03/16 07/30/25 History tamsulosin 0.4 mg capsule 0.4 mg PO QHS prostate 02/03/16 07/30/25 History fluticasone propionate 50 2 spray NASAL DAILY PRN Nasal 06/30/18 04/15/25 History mcg/actuation nasal Congestion spray,suspension methotrexate sodium 2.5 mg tablet 7.5 mg PO Q7D arthritis 06/30/18 06/19/25 History Held on 07/26/25. Instructions: MD Ordered pyridoxine (vitamin B6) 50 mg 100 mg PO QHS supplement 06/30/18 07/29/25 History tablet oxybutynin chloride 5 mg 5 mg PO QHS bladder 10/20/18 07/30/25 History tablet,extended release 24 hr folic acid 1 mg tablet 4 mg PO DAILY supplement 06/01/19 07/29/25 History glucosamine HCl 1,500 mg tablet 1,500 mg PO BID supplemt 02/20/20 07/29/25 History infliximab-dyyb 100 mg intravenous 100 mg IV UD psoriatic arthritis 05/30/20 06/07/25 History solution (Inflectra) Held on 07/26/25. Instructions: MD Ordered cyanocobalamin (vitamin B-12) 100 500 mcg PO DAILY supplement 12/01/20 07/28/25 History mcg tablet cholecalciferol (vitamin D3) 25 25 mcg PO DAILY supplement 06/20/24 07/30/25 History mcg (1,000 unit) tablet ginkgo biloba leaf extract 60 mg 60 mg PO DAILY 06/20/24 07/29/25 History capsule glipizide 10 mg tablet 10 mg PO DAILY PRN dm 06/20/24 07/28/25 History vitamins A,C,Q-tbvt-yjnecz 4,296 1 cap PO QDAY 03/08/25 07/28/25 History mcg-226 mg-90 mg capsule (PreserVision AREDS) multivitamin (Daily Multi-Vitamin 1 tab PO DAILY 04/15/25 07/29/25 History tablet) acetaminophen 325 mg tablet 650 mg (2 x 325 mg) PO Q6H PRN PRN 04/17/25 07/30/25 Rx Pain 1-10 Or Fever >100.7 #0 tabs pravastatin 40 mg tablet 40 mg PO QHS cholesterol #90 tabs 05/15/25 07/29/25 Rx amlodipine 2.5 mg tablet 2.5 mg PO DAILY 06/21/25 07/28/25 History bimatoprost 0.01 % eye drops 1 drp ophthalmic (eye) DAILY 06/21/25 07/30/25 History (Lumigan) carvedilol 25 mg tablet 25 mg PO BID 06/21/25 07/30/25 History empagliflozin 10 mg tablet 10 mg PO DAILY 06/21/25 09/18/25 History (Jardiance) fluocinolone 0.01 % topical body 1 applic topical DAILY 06/21/25 06/21/25 History oil potassium chloride 20 mEq 20 meq PO DAILY 06/28/25 07/29/25 History tablet,extended release(part/cryst) spironolactone 25 1 tab PO DAILY 06/28/25 07/28/25 History mg-hydrochlorothiazide 25 mg tablet apixaban 2.5 mg tablet (Eliquis) 2.5 mg PO BID #180 tabs 09/05/25 09/17/25 Rx furosemide 40 mg tablet (Lasix) 40 mg PO QAM PRN edema 09/19/25 Unknown History Allergy/AdvReac Type Severity Reaction Status Date / Time cephalexin (From Keflex) Allergy Severe rash Verified 09/19/25 10:33 sulfamethoxazole (From Allergy Severe Rash Verified 09/19/25 10:33 Bactrim) trimethoprim (From Bactrim) Allergy Severe Rash Verified 09/19/25 10:33 cefdinir Allergy Mild Abd Verified 09/19/25 10:33 cramps/diarrhea Penicillins Allergy Rash Verified 09/19/25 10:33 doxycycline AdvReac Severe GI upset Verified 09/19/25 10:33 levofloxacin (From Levaquin) AdvReac Other Verified 09/19/25 10:33 Family History Father Cancer Prostate Mother Depression Uncle Myocardial infarction Son CVA (cerebral vascular accident) Surgical History History of esophagogastroduodenoscopy (EGD) Hx of colonoscopy History of ERCP History of bilateral cataract extraction History of foot surgery (~02/2023) excision of skin cancer History of hammer toe correction (09/26/20) History of partial amputation of toe History of hernia repair History of tonsillectomy and adenoidectomy Social History Smoking Status: Former smoker pack-years: 30 alcohol intake: current alcohol intake frequency: holidays/special occasions only substance use type: does not use caffeine: Yes Type: coffee Number of servings: 2 what type of physical activity do you participate in: running and weight training frequency: 1-2 times per week Audit: Pertinent Findings HISTORY of Pertinent Findings History of Pertinent Findings: As per cardiology: 80-year-old white male who presents to the office today for cardiovascular clearance. He is scheduled to have a pancreatic stone removed by Dr. Sullivan. He states that he had two stones removed in June, and came out of anesthetic very short of breath. The patient also carries a history of hyperlipidemia, hypertension, and persistent chronic atrial fibrillation. He remains on Eliquis uninterrupted. He is tolerating it without incident. He denies any nuisance bleeding. His Has-bled score at 5-20%. His [id number] score is calculated 4. Patient has a history of persistent atrial fibrillation. His echocardiogram from 08/22/2025 demonstrated an ejection fraction of 60%, and sever biatrial enlargement. This was reviewed with him. He appears to be in an irregularly irregular rhythm on exam. From a cardiac standpoint, the patient is doing well. Pertinent Findings Stress test pertinent findings: Stress test 08/22/2025: Impression: 1. Pharmacologic (Regadenoson) evaluation 2. Peak pharmacologic ECG with no ischemic changes. 3. Baseline atrial fibrillation. 5. Rest and stress SPECT Cardiolite nuclear imaging demonstrate relative uniform tracer uptake and myocardial perfusion appearing within normal limits. 6. The gated Cardiolite study reports an LVEF of 70%. Echo (EF%) pertinent findings: Echocardiogram 08/22/2025: Interpretation Summary Mild concentric left ventricular hypertrophy. The left ventricular ejection fraction is 60 %. Diastolic dysfunction is present. Unable to grade. There is severe biatrial dilatation. Mild (1+) mitral valve insufficiency. Mild (1+) tricuspid valve insufficiency. Aortic sclerosis, no stenosis. Heart catheterization pertinent findings: Cardiac Catheterization 07/18/2007 FINAL IMPRESSION 1. Elevated left ventricular end systolic pressure compatible with decreased diastolic compliance. 2. Left ventricle: Preserved LV size, wall motion, and systolic function with an estimated LVEF of 55%. 3. Left main: Large short vessel with a very proximal [place] bend but with no angiographically appearing atherosclerotic coronary disease and no decreased arterial waveform or pressure damping upon engagement with the catheter. 4. LAD: angiographically normal. 5. LcX: Large dominant vessel - angiographically normal. 6. Intermediate ramus — angiographically normal. 7. RCA: Nondominant vessel - angiographically normal. Consult pertinent findings: Mild bilateral internal carotid stenosis Additional pertinent findings: Holter Monitor 01/04/2012 THIS IS A 24 HOUR HOLTER SCAN. SINUS RHYTHM. MINIMUM HEART RATE 51 BPM AT 3:44 AM. AVERAGE HEART RATE 72 BPM. MAXIMUM HEART RATE 102 BPM AT 9:52 PM. NO ACTIVITY RECORDED IN PT DIARY AT THIS TIME. RARE PREMATURE ATRIAL COMPLEXES. FOUR ATRIAL COUPLETS. 20 BEATS IN ATRIAL TRIGEMINY. NO RUNS. OCCASIONAL PREMATURE VENTRICULAR COMPLEXES. 107 BEATS IN VENTRICULAR BIGEMINY AND 24 BEATS IN VENTRICULAR TRIGEMINY. 34 VENTRICULAR COUPLETS, ONE TRIPLET. NO RUNS. NO SYMPTOMS RECORDED IN PT. DIARY. Recommendation Anesthesia Recommendation Anesthesia recommendation: F/U recommended (Please have cardiology officially clear patient -- carotid duplex was ordered, for which it seems the clearance was pending on. )
--- NOTE | 2025-09-20 14:54 | PAT.ANESEVAL ---
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 When Was Last Pacemaker Check QUESTION #4 FULL TEXT: You/Your Family Experience fever (hyperthermia) with Anesthesia Last Oral Intake Last Oral intake: Last Oral Intake NPO since Meds taken in AM with sips of water? 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 Female No 09/19/25 10:45 HX of Motion Sickness No 09/19/25 10:45 HX of N/V After Surgery No 09/19/25 10:45 Non-Smoker No 09/19/25 10:45 Duration of Surgery greater No 09/19/25 10:45 than 60 minutes Number of Risk Factors PONV Score Height & Weight Height & Weight: Anesthesia: Height & Weight Height 5 ft 11 in 08/29/25 10:15 Respiratory Assessment Respiratory Assessment - transmission design engineer: Respiratory Tract Infection Hx - transmission design engineer Hx Respiratory Tract Infection No 09/19/25 10:45 STOP Sleep Apnea STOP Sleep Apnea - transmission design engineer: STOP Sleep Apnea - transmission design engineer Hx Hypertension Yes: CONTROLLED ON MED 09/19/25 10:45 Hx Sleep Apnea Yes 09/19/25 10:45 CPAP No 09/19/25 10:45 BIPAP No 09/19/25 10:45 Do you snore loudly (louder than talking or can be heard Do you often feel tired/ fatigued/ sleepy during daytime? Has anyone observed you stop breathing during sleep? STOP Results Positive 09/19/25 10:45 QUESTION #5 FULL TEXT : Do you snore loudly (louder than talking or can be heard through closed doors)? 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 Specify any problems Hx of Preganancy in last 3 N/A 09/19/25 10:45 Months Nurse Filling Out Transfusion VCHRISTIN 09/19/25 10:45 & Questions: Date: 09/19/25 09/19/25 10:45 Time: 10:46 09/19/25 10:45 Patient unable to answer at this time (ie. confused, unrespo /Reproduction History /Reproductive History - transmission design engineer: /Reproductive Hx- transmission design engineer Hx Now No 09/19/25 10:45 Gestational Age (in weeks): EDC: Hx Hx Para Hx Section SAB No 09/19/25 10:45 Does the father of the baby or his family experience fever w Father of the baby Malignant Hypertension history comment [facility] Medical History (Updated 09/19/25 @ 10:45 by Maddi Riojas) History of echocardiogram History of stress test Cardiology follow-up encounter Hx of squamous cell carcinoma of skin Loss of hearing Wears dentures Cancer Rash Ambulates with cane Diabetes Prostate disease Bladder disease History of renal disease Anemia High cholesterol Lightheadedness Dietary restriction History of GI bleed COPD (chronic obstructive pulmonary disease) Shortness of breath on exertion Former smoker Amputation toe Glaucoma CPAP (continuous positive airway pressure) dependence Atrial fibrillation Essential hypertension Paroxysmal ventricular tachycardia Premature atrial contractions Cellulitis Psoriasis Arthritis Premature ventricular contraction Supraventricular tachycardia Home Medications Medication Instructions Recorded Last Taken Type finasteride 5 mg tablet 5 mg PO DAILY prostate 02/03/16 07/30/25 History tamsulosin 0.4 mg capsule 0.4 mg PO QHS prostate 02/03/16 07/30/25 History fluticasone propionate 50 2 spray NASAL DAILY PRN Nasal 06/30/18 04/15/25 History mcg/actuation nasal Congestion spray,suspension methotrexate sodium 2.5 mg tablet 7.5 mg PO Q7D arthritis 06/30/18 06/19/25 History Held on 07/26/25. Instructions: MD Ordered pyridoxine (vitamin B6) 50 mg 100 mg PO QHS supplement 06/30/18 07/29/25 History tablet oxybutynin chloride 5 mg 5 mg PO QHS bladder 10/20/18 07/30/25 History tablet,extended release 24 hr folic acid 1 mg tablet 4 mg PO DAILY supplement 06/01/19 07/29/25 History glucosamine HCl 1,500 mg tablet 1,500 mg PO BID supplemt 02/20/20 07/29/25 History infliximab-dyyb 100 mg intravenous 100 mg IV UD psoriatic arthritis 05/30/20 06/07/25 History solution (Inflectra) Held on 07/26/25. Instructions: MD Ordered cyanocobalamin (vitamin B-12) 100 500 mcg PO DAILY supplement 12/01/20 07/28/25 History mcg tablet cholecalciferol (vitamin D3) 25 25 mcg PO DAILY supplement 06/20/24 07/30/25 History mcg (1,000 unit) tablet ginkgo biloba leaf extract 60 mg 60 mg PO DAILY 06/20/24 07/29/25 History capsule glipizide 10 mg tablet 10 mg PO DAILY PRN dm 06/20/24 07/28/25 History vitamins A,C,Q-ssdn-eugmfa 4,296 1 cap PO QDAY 03/08/25 07/28/25 History mcg-226 mg-90 mg capsule (PreserVision AREDS) multivitamin (Daily Multi-Vitamin 1 tab PO DAILY 04/15/25 07/29/25 History tablet) acetaminophen 325 mg tablet 650 mg (2 x 325 mg) PO Q6H PRN PRN 04/17/25 07/30/25 Rx Pain 1-10 Or Fever >100.7 #0 tabs pravastatin 40 mg tablet 40 mg PO QHS cholesterol #90 tabs 05/15/25 07/29/25 Rx amlodipine 2.5 mg tablet 2.5 mg PO DAILY 06/21/25 07/28/25 History bimatoprost 0.01 % eye drops 1 drp ophthalmic (eye) DAILY 06/21/25 07/30/25 History (Lumigan) carvedilol 25 mg tablet 25 mg PO BID 06/21/25 07/30/25 History empagliflozin 10 mg tablet 10 mg PO DAILY 06/21/25 09/18/25 History (Jardiance) fluocinolone 0.01 % topical body 1 applic topical DAILY 06/21/25 06/21/25 History oil potassium chloride 20 mEq 20 meq PO DAILY 06/28/25 07/29/25 History tablet,extended release(part/cryst) spironolactone 25 1 tab PO DAILY 06/28/25 07/28/25 History mg-hydrochlorothiazide 25 mg tablet apixaban 2.5 mg tablet (Eliquis) 2.5 mg PO BID #180 tabs 09/05/25 09/17/25 Rx furosemide 40 mg tablet (Lasix) 40 mg PO QAM PRN edema 09/19/25 Unknown History Allergy/AdvReac Type Severity Reaction Status Date / Time cephalexin (From Keflex) Allergy Severe rash Verified 09/19/25 10:33 sulfamethoxazole (From Allergy Severe Rash Verified 09/19/25 10:33 Bactrim) trimethoprim (From Bactrim) Allergy Severe Rash Verified 09/19/25 10:33 cefdinir Allergy Mild Abd Verified 09/19/25 10:33 cramps/diarrhea Penicillins Allergy Rash Verified 09/19/25 10:33 doxycycline AdvReac Severe GI upset Verified 09/19/25 10:33 levofloxacin (From Levaquin) AdvReac Other Verified 09/19/25 10:33 Family History (Reviewed 08/29/25 @ 13:33 by Kayy Minaya TECHNICAL SERVICE ENGINEER, TECHNICAL SERVICE ENGINEER-C) Father Cancer Prostate Mother Depression Uncle Myocardial infarction Son CVA (cerebral vascular accident) Surgical History History of esophagogastroduodenoscopy (EGD) Hx of colonoscopy History of ERCP History of bilateral cataract extraction History of foot surgery (~02/2023) excision of skin cancer History of hammer toe correction (09/26/20) History of partial amputation of toe History of hernia repair History of tonsillectomy and adenoidectomy Social History Smoking Status: Former smoker pack-years: 30 alcohol intake: current alcohol intake frequency: holidays/special occasions only substance use type: does not use caffeine: Yes Type: coffee Number of servings: 2 what type of physical activity do you participate in: running and weight training frequency: 1-2 times per week Audit: Pertinent Findings HISTORY of Pertinent Findings History of Pertinent Findings: Stress Test Pertinent Findings Stress test pertinent findings Stress test 08/22/2025: 09/19/25 13:50 Impression: 1. Pharmacologic ( Regadenoson) evaluation 2. Peak pharmacologic ECG with no ischemic changes. 3. Baseline atrial fibrillation. 5. Rest and stress SPECT Cardiolite nuclear imaging demonstrate relative uniform tracer uptake and myocardial perfusion appearing within normal limits. 6. The gated Cardiolite study reports an LVEF of 70% . Echo Pertinent Findings Echo (EF%) pertinent findings Echocardiogram 08/22/2025: 09/19/25 13:50 Interpretation Summary Mild concentric left ventricular hypertrophy. The left ventricular ejection fraction is 60 %. Diastolic dysfunction is present. Unable to grade. There is severe biatrial dilatation. Mild (1+) mitral valve insufficiency. Mild (1+) tricuspid valve insufficiency. Aortic sclerosis, no stenosis. Heart Catheterization Pertinent Findings Heart catheterization Cardiac Catheterization 09/19/25 13:50 pertinent findings 2007 FINAL IMPRESSION 1. Elevated left ventricular end systolic pressure compatible with decreased diastolic compliance. 2. Left ventricle: Preserved LV size, wall motion, and systolic function with an estimated LVEF of 55%. 3. Left main: Large short vessel with a very proximal [place] bend but with no angiographically appearing atherosclerotic coronary disease and no decreased arterial waveform or pressure damping upon engagement with the catheter. 4. LAD: angiographically normal. 5. LcX: Large dominant vessel - angiographically normal. 6. Intermediate ramus — angiographically normal. 7. RCA: Nondominant vessel - angiographically normal. Consult Pertinent Findings Consult pertinent findings Mild bilateral internal 09/19/25 13:50 carotid stenosis Additional Pertinent Findings Additional pertinent findings Holter Monitor 01/04/2012 09/19/25 13:50 THIS IS A 24 HOUR HOLTER SCAN. SINUS RHYTHM. MINIMUM HEART RATE 51 BPM AT 3:44 AM. AVERAGE HEART RATE 72 BPM. MAXIMUM HEART RATE 102 BPM AT 9:52 PM. NO ACTIVITY RECORDED IN PT DIARY AT THIS TIME. RARE PREMATURE ATRIAL COMPLEXES. FOUR ATRIAL COUPLETS. 20 BEATS IN ATRIAL TRIGEMINY. NO RUNS. OCCASIONAL PREMATURE VENTRICULAR COMPLEXES. 107 BEATS IN VENTRICULAR BIGEMINY AND 24 BEATS IN VENTRICULAR TRIGEMINY. 34 VENTRICULAR COUPLETS, ONE TRIPLET. NO RUNS. NO SYMPTOMS RECORDED IN PT. DIARY. Pertinent Findings Consult pertinent findings: 09/19/2025. Rei COWART. Patient is cleared for surgery. Eliquis to be held for 2 days prior to procedure. Recommendation Anesthesia Recommendation Anesthesia recommendation: OPTIMIZED for anesthesia
[2025-09-23] VITALS (9 sets, daily range): BP systolic 114–130; BP diastolic 72–91; PULSE 73–82; RESP 16–18; TEMP 36.1–36.2; O2SAT 99–100; BMI 23.8
--- NOTE | 2025-09-23 | FLU_PTH ---
PATIENT: YESSI GRACE LOC: EN U#:[id number] AGE/SX: 80/M ROOM: RE09/23/[address]: Dr. Dayday Sullivan DO : 1945 BED: DIS: 09/23/2025 SPEC #: [id number] RECD: 09/23/25 14:16 STATUS: TITUS REQ #: [id number] MOIRA: 09/23/25 00:[address]: Dayday Sullivan DEPT: CYTOLOGY RECD BY: Glenroy Valentin ENTERED: 09/24/25 09:45 SP TYPE: Fluid OTHR DR: Dr. 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 Biliary stent, ERCP (cytospin, cellblock): - No malignant cells identified. - Essentially acellular specimen with blood, bile pigment, and foreign debris present. B. Pancreatic stent, ERCP (cytospin, cellblock): - No malignant cells identified. - Essentially acellular specimen with blood and foreign debris present. CYTOLOGY STUDY Slides are reviewed. CYTOLOGY GROSS A. Received is 12cm xiong stent labeled with the patient's name and and designated per the requisition as "Biliary stent." Submitted for cytology and cell block preparation. B. Received is 10cm blue stent labeled with the patient's name and and designated per the requisition as "Pancreatic stent." Submitted for cytology and cell block preparation. Mr 09/24/2025 CPT: [id number] ,[id number]
--- NOTE | 2025-09-23 10:45 | RAD_ITS ---
PROCEDURE: ERCP BILIARY/PANCREAS 09/23/2025 REASON FOR EXAM: ERCP, SPY WITH LITHOTRIPSY TECHNIQUE: Procedure Code: RADERCP Modality: DX Procedure: ERCP BILIARY/PANCREAS. Fluoroscopy. 3 minutes and 4 seconds. Radiation dose: 70.83 mGy. 11 spot images were submitted. COMPARISON: Prior ERCP dated June 29, 2025. FINDINGS: Fluoroscopic intraoperative imaging provided for cannulization of the common bile duct in the pancreatic duct. There was placement of a biliary stent. RAD/ERCP Biliary/Pancreas IMPRESSION: Intraoperative fluoroscopic services provided for ERCP and stent placement. Reading Location: [place] [id number]
--- NOTE | 2025-09-23 10:52 | PCM.HP.STD ---
HPI - General General Date of Admission: 09/23/25 Date of Service: 09/23/25 Chief Complaint: pancreatic stones HPI Narrative YESSI GRACE, is a 80 M who presents with pancreatitis and pancreatic stones [facility] ED 06.21.25 with BRBPR. Work up unremarkable besides a stone in the pancreatic duct. Lipase 450 but asymptomatic. GI recommend outpt f/u. [facility] admission 06.29.25-06.30.25 oswald presenting to the ED with abnormal outpt labs. Lipase was elevated in the . CT showing a 12 mm stone in the pancreatic hear causing obstruction to the main pancreatic duct and CBD. GI consulted and underwent ERCP. ERCP 06.29.25 with multiple gallstones 2 of which were removed. Stents placed. Repeat for lithotripsy and stent exchange OV 07.02.25 patient was shortness of breath since his ERCP. He has some mild abdominal discomfort. He denies ever having severe abdominal pain even prior to his hospitalization. He has also been constipated since this hospitalization. [facility] Medical History History of echocardiogram History of stress test Cardiology follow-up encounter Hx of squamous cell carcinoma of skin Loss of hearing Wears dentures Cancer Rash Ambulates with cane Diabetes Prostate disease Bladder disease History of renal disease Anemia High cholesterol Lightheadedness Dietary restriction History of GI bleed COPD (chronic obstructive pulmonary disease) Shortness of breath on exertion Former smoker Amputation toe Glaucoma CPAP (continuous positive airway pressure) dependence Atrial fibrillation Essential hypertension Paroxysmal ventricular tachycardia Premature atrial contractions Cellulitis Psoriasis Arthritis Premature ventricular contraction Supraventricular tachycardia Home Medications Medication Instructions Recorded Last Taken Type finasteride 5 mg tablet 5 mg PO DAILY prostate 02/03/16 07/30/25 History tamsulosin 0.4 mg capsule 0.4 mg PO QHS prostate 02/03/16 07/30/25 History fluticasone propionate 50 2 spray NASAL DAILY PRN Nasal 06/30/18 04/15/25 History mcg/actuation nasal Congestion spray,suspension methotrexate sodium 2.5 mg tablet 7.5 mg PO Q7D arthritis 06/30/18 06/19/25 History Held on 07/26/25. Instructions: Ordered pyridoxine (vitamin B6) 50 mg 100 mg PO QHS supplement 06/30/18 07/29/25 History tablet oxybutynin chloride 5 mg 5 mg PO QHS bladder 10/20/18 07/30/25 History tablet,extended release 24 hr folic acid 1 mg tablet 4 mg PO DAILY supplement 06/01/19 07/29/25 History glucosamine HCl 1,500 mg tablet 1,500 mg PO BID supplemt 02/20/20 07/29/25 History infliximab-dyyb 100 mg intravenous 100 mg IV UD psoriatic arthritis 05/30/20 06/07/25 History solution (Inflectra) Held on 07/26/25. Instructions: MD Ordered cyanocobalamin (vitamin B-12) 100 500 mcg PO DAILY supplement 12/01/20 07/28/25 History mcg tablet cholecalciferol (vitamin D3) 25 25 mcg PO DAILY supplement 06/20/24 07/30/25 History mcg (1,000 unit) tablet ginkgo biloba leaf extract 60 mg 60 mg PO DAILY 06/20/24 07/29/25 History capsule glipizide 10 mg tablet 10 mg PO DAILY PRN dm 06/20/24 07/28/25 History vitamins A,C,M-nsvk-pksvfi 4,296 1 cap PO QDAY 03/08/25 07/28/25 History mcg-226 mg-90 mg capsule (PreserVision AREDS) multivitamin (Daily Multi-Vitamin 1 tab PO DAILY 04/15/25 07/29/25 History tablet) acetaminophen 325 mg tablet 650 mg (2 x 325 mg) PO Q6H PRN PRN 04/17/25 07/30/25 Rx Pain 1-10 Or Fever >100.7 #0 tabs pravastatin 40 mg tablet 40 mg PO QHS cholesterol #90 tabs 05/15/25 07/29/25 Rx amlodipine 2.5 mg tablet 2.5 mg PO DAILY 06/21/25 07/28/25 History bimatoprost 0.01 % eye drops 1 drp ophthalmic (eye) DAILY 06/21/25 07/30/25 History (Lumigan) carvedilol 25 mg tablet 25 mg PO BID 06/21/25 07/30/25 History empagliflozin 10 mg tablet 10 mg PO DAILY 06/21/25 09/18/25 History (Jardiance) fluocinolone 0.01 % topical body 1 applic topical DAILY 06/21/25 06/21/25 History oil potassium chloride 20 mEq 20 meq PO DAILY 06/28/25 07/29/25 History tablet,extended release(part/cryst) spironolactone 25 1 tab PO DAILY 06/28/25 07/28/25 History mg-hydrochlorothiazide 25 mg tablet apixaban 2.5 mg tablet (Eliquis) 2.5 mg PO BID #180 tabs 09/05/25 09/17/25 Rx furosemide 40 mg tablet (Lasix) 40 mg PO QAM PRN edema 09/19/25 Unknown History Allergy/AdvReac Type Severity Reaction Status Date / Time cephalexin (From Keflex) Allergy Severe rash Verified 09/19/25 10:33 sulfamethoxazole (From Allergy Severe Rash Verified 09/19/25 10:33 Bactrim) trimethoprim (From Bactrim) Allergy Severe Rash Verified 09/19/25 10:33 cefdinir Allergy Mild Abd Verified 09/19/25 10:33 cramps/diarrhea Penicillins Allergy Rash Verified 09/19/25 10:33 doxycycline AdvReac Severe GI upset Verified 09/19/25 10:33 levofloxacin (From Levaquin) AdvReac Other Verified 09/19/25 10:33 Family History Father Cancer Prostate Mother Depression Uncle Myocardial infarction Son CVA (cerebral vascular accident) Surgical History History of esophagogastroduodenoscopy (EGD) Hx of colonoscopy History of ERCP History of bilateral cataract extraction History of foot surgery (~02/2023) excision of skin cancer History of hammer toe correction (09/26/20) History of partial amputation of toe History of hernia repair History of tonsillectomy and adenoidectomy Social History Smoking Status: Former smoker pack-years: 30 alcohol intake: current alcohol intake frequency: holidays/special occasions only substance use type: does not use caffeine: Yes Type: coffee Number of servings: 2 what type of physical activity do you participate in: running and weight training frequency: 1-2 times per week ROS Constitutional Constitutional: Denies fatigue, fever(s), poor appetite, weight gain or weight loss Gastrointestinal Gastrointestinal: Denies belching, bloating, change in bowel habits, change in stool character, chewing difficulty, coffee ground emesis, constipation, cramping, diarrhea, dyspepsia, dysphagia, early satiety, excessive flatus, fecal incontinence, heartburn, hematemesis, hematochezia, hemorrhoids, loose stools, melena, nausea, odynophagia, rectal bleeding, tenesmus, vomiting or weight changes Physical Exam Const alert, oriented x3, no apparent distress and healthy appearing General Appearance: cooperative GI normal to inspection, nondistended, normoactive bowel sounds, soft to palpation, non-tender and non-distended Percussion: normal to percussion Rectal Exam: deferred Assessment & Plan Assessment/Plan (1) 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
[2025-09-23] MEDS: Lactated Ringers 1,000 ML 15 ML IV (11:32)
--- NOTE | 2025-09-23 12:36 | PCM.PRE.AN2 ---
ASA Classification* ASA Classification ASA Classification: 4 (Mild bilateral carotid stenosis, persistent chronic Afib, HTN, CKD3, RAJESH) Assessment & Plan Anesthesia* Anesthesia Assessment Anesthesia Assessment: Discussed sedation and/or anesthesia options, risks, benefits, and alternatives with patient/parents/legal guardian/POA. Questions invited. The patient/parents/legal guardian/POA seems to understand and agrees to proceed with anesthesia plan. Reviewed the physical assessment, medical history, allergy history and patient home medications list prior to surgery/procedure/anesthetic and documented any changes. Performed airway and anesthesia risk assessments. I had a thorough discussion with the patient, discussing his cardiac condition(s), and the risk for surgery today. I advised the patient that today's anesthesia can be a risk factor for the development of further cardiac complications, including, but not limited to myocardial ischemia and lethal arrhythmias, due to the patient's history of of active atrial fibrillation. I had a very detailed and thorough conversation with the patient regarding the risk of today's procedure with regards to anesthesia, which could lead to potentially lethal arrhythmias, heart failure (or exacerbation of current heart failure), stroke, and . I explained to the patient that if there were to be an emergency, our potential interventions could include anything up to placing invasive lines, such as arterial or central lines, CPR, and delivering electrical shocks to the heart. The patient acknowledges this and I answered all questions illicited by the patient. The patient verbalized understanding of all of the above and wishes to proceed with the surgery. Opportunity for questions invited. Anesthesia Type Anesthesia Type: General History Source History Obtained from:: Patient and Chart Anesthesia Focused Assessment* Temperature: 97.2 F Pulse Rate: 82 Blood Pressure: 130/89 Respiratory Rate: 18 Pulse Ox: 99 Oxygen Delivery Method: Room Air Airway Assessment Mouth opens: >3 cm Mallampati Score: II Neck Range of motion (ROM): Full ROM Labs Anesthesia Preop lab: CBC WBC, (4.4-11.0) 7.1 K/mm3 09/10/25, 12:37 RBC, (4.6-6.2) 4.81 M/mm3 09/10/25, 12:37 Hgb, (13.0-16.5) 15.1 g/dL 09/10/25, 12:37 Hct, (40-54) 45.0 % 09/10/25, 12:37 Plt Count, (150-450) 240 K/mm3 09/10/25, 12:37 CHEMISTRY Potassium, (3.3-5.1) 4.7 mmol/L 09/10/25, 12:37 Sodium, (133-145) 137 mmol/L 09/10/25, 12:37 Magnesium, (1.5-2.2) 2.1 mg/dL 06/28/25, 23:43 Phosphorus, (2.7-4.5) 3.5 mg/dL 06/28/25, 23:43 BUN, (4-19) 31 mg/dL H 09/10/25, 12:37 Creatinine, (0.70-1.20) 1.60 mg/dL H 09/10/25, 12:37 Glucose, (70-99) 191 mg/dL H 09/10/25, 12:37 POC Glucose, (74-106) 175 mg/dL H Today, 11:31 TSH, (0.300-4.200) 2.350 uIU/mL 07/16/25, 12:42 COAG Pre-Assessment Diagnosis/Proposed Procedure Planned Operative Procedure(s): ERCP Anesthesia History Anesthesia History - post manager: Anesthesia History - post manager Hx Hospitalization Yes 09/19/25 10:45 Any Problems With Anesthesia Yes: SOB 09/19/25 10:45 Cholinesterase deficiency No 09/19/25 10:45 You/Your Family Experience No 09/19/25 10:45 fever (hyperthermia) with Relationship Recent Exposure to Contagious No 09/23/25 11:21 Disease Does patient have nerve No 09/19/25 10:45 stimulator Patient instructed to have device shut off --Does patient have Pacemaker No 09/23/25 11:21 or ICD? When Was Last Pacemaker Check QUESTION #4 FULL TEXT: You/Your Family Experience fever (hyperthermia) with Anesthesia Last Oral Intake Last Oral intake: Last Oral Intake NPO since 08:00 09/23/25 11:21 Meds taken in AM with sips of Yes 09/23/25 11:21 water? Meds patient instructed to carvedilol 09/23/25 11:21 take am of surgery PONV PONV - post manager: PONV - post manager Female No 09/19/25 10:45 HX of Motion Sickness No 09/19/25 10:45 HX of N/V After Surgery No 09/19/25 10:45 Non-Smoker No 09/19/25 10:45 Duration of Surgery greater No 09/19/25 10:45 than 60 minutes Number of Risk Factors PONV Score Height & Weight Height & Weight: Anesthesia: Height & Weight Height 5 ft 11 in 09/23/25 11:21 Weight: 77.6 kg 09/23/25 11:21 Body Mass Index (BMI) 23.8 09/23/25 11:21 Respiratory Assessment Respiratory Assessment - post manager: Respiratory Tract Infection Hx - post manager Hx Respiratory Tract Infection No 09/19/25 10:45 STOP Sleep Apnea STOP Sleep Apnea - post manager: STOP Sleep Apnea - post manager Hx Hypertension Yes: CONTROLLED ON MED 09/19/25 10:45 Hx Sleep Apnea Yes 09/19/25 10:45 CPAP No 09/19/25 10:45 BIPAP No 09/19/25 10:45 Do you snore loudly (louder than talking or can be heard Do you often feel tired/ fatigued/ sleepy during daytime? Has anyone observed you stop breathing during sleep? STOP Results Positive 09/19/25 10:45 QUESTION #5 FULL TEXT : Do you snore loudly (louder than talking or can be heard through closed doors)? 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 Specify any problems Hx of Preganancy in last 3 N/A 09/19/25 10:45 Months Nurse Filling Out Transfusion VCHRISTIN 09/19/25 10:45 & Questions: Date: 09/19/25 09/19/25 10:45 Time: 10:46 09/19/25 10:45 Patient unable to answer at this time (ie. confused, unrespo /Reproduction History /Reproductive History - post manager: /Reproductive Hx- post manager Hx Now No 09/19/25 10:45 Gestational Age (in weeks): EDC: Hx Hx Para Hx Section SAB No 09/19/25 10:45 Does the father of the baby or his family experience fever w Father of the baby Malignant Hypertension history comment Active Medications Active Medications: Current Medications Generic Name Dose Route Start Last Admin Trade Name Freq PRN Reason Stop Dose Admin Lactated Ringer's 1,000 mls @ 15 mls/hr 09/23/25 11:00 09/23/25 11:32 IV 15 mls/hr .Q[address] Administration PFSH Medical History History of echocardiogram History of stress test Cardiology follow-up encounter Hx of squamous cell carcinoma of skin Loss of hearing Wears dentures Cancer Rash Ambulates with cane Diabetes Prostate disease Bladder disease History of renal disease Anemia High cholesterol Lightheadedness Dietary restriction History of GI bleed COPD (chronic obstructive pulmonary disease) Shortness of breath on exertion Former smoker Amputation toe Glaucoma CPAP (continuous positive airway pressure) dependence Atrial fibrillation Essential hypertension Paroxysmal ventricular tachycardia Premature atrial contractions Cellulitis Psoriasis Arthritis Premature ventricular contraction Supraventricular tachycardia Home Medications Medication Instructions Recorded Last Taken Type finasteride 5 mg tablet 5 mg PO DAILY prostate 02/03/16 07/30/25 History tamsulosin 0.4 mg capsule 0.4 mg PO QHS prostate 02/03/16 07/30/25 History fluticasone propionate 50 2 spray NASAL DAILY PRN Nasal 06/30/18 04/15/25 History mcg/actuation nasal Congestion spray,suspension methotrexate sodium 2.5 mg tablet 7.5 mg PO Q7D arthritis 06/30/18 06/19/25 History Held on 07/26/25. Instructions: Ordered pyridoxine (vitamin B6) 50 mg 100 mg PO QHS supplement 06/30/18 07/29/25 History tablet oxybutynin chloride 5 mg 5 mg PO QHS bladder 10/20/18 07/30/25 History tablet,extended release 24 hr folic acid 1 mg tablet 4 mg PO DAILY supplement 06/01/19 07/29/25 History glucosamine HCl 1,500 mg tablet 1,500 mg PO BID supplemt 02/20/20 07/29/25 History infliximab-dyyb 100 mg intravenous 100 mg IV UD psoriatic arthritis 05/30/20 06/07/25 History solution (Inflectra) Held on 07/26/25. Instructions: MD Ordered cyanocobalamin (vitamin B-12) 100 500 mcg PO DAILY supplement 12/01/20 07/28/25 History mcg tablet cholecalciferol (vitamin D3) 25 25 mcg PO DAILY supplement 06/20/24 07/30/25 History mcg (1,000 unit) tablet ginkgo biloba leaf extract 60 mg 60 mg PO DAILY 06/20/24 07/29/25 History capsule glipizide 10 mg tablet 10 mg PO DAILY PRN dm 06/20/24 07/28/25 History vitamins A,C,R-arzk-lnwxur 4,296 1 cap PO QDAY 03/08/25 07/28/25 History mcg-226 mg-90 mg capsule (PreserVision AREDS) multivitamin (Daily Multi-Vitamin 1 tab PO DAILY 04/15/25 07/29/25 History tablet) acetaminophen 325 mg tablet 650 mg (2 x 325 mg) PO Q6H PRN PRN 04/17/25 07/30/25 Rx Pain 1-10 Or Fever >100.7 #0 tabs pravastatin 40 mg tablet 40 mg PO QHS cholesterol #90 tabs 05/15/25 07/29/25 Rx amlodipine 2.5 mg tablet 2.5 mg PO DAILY 06/21/25 07/28/25 History bimatoprost 0.01 % eye drops 1 drp ophthalmic (eye) DAILY 06/21/25 07/30/25 History (Lumigan) carvedilol 25 mg tablet 25 mg PO BID 06/21/25 09/23/25 History empagliflozin 10 mg tablet 10 mg PO DAILY 06/21/25 09/19/25 History (Jardiance) fluocinolone 0.01 % topical body 1 applic topical DAILY 06/21/25 06/21/25 History oil potassium chloride 20 mEq 20 meq PO DAILY 06/28/25 07/29/25 History tablet,extended release(part/cryst) spironolactone 25 1 tab PO DAILY 06/28/25 07/28/25 History mg-hydrochlorothiazide 25 mg tablet apixaban 2.5 mg tablet (Eliquis) 2.5 mg PO BID #180 tabs 09/05/25 09/19/25 Rx furosemide 40 mg tablet (Lasix) 40 mg PO QAM PRN edema 09/19/25 Unknown History Allergy/AdvReac Type Severity Reaction Status Date / Time cephalexin (From Keflex) Allergy Severe rash Verified 09/23/25 11:15 sulfamethoxazole (From Allergy Severe Rash Verified 09/23/25 11:15 Bactrim) trimethoprim (From Bactrim) Allergy Severe Rash Verified 09/23/25 11:15 cefdinir Allergy Mild Abd Verified 09/19/25 10:33 cramps/diarrhea Penicillins Allergy Rash Verified 09/23/25 11:15 doxycycline AdvReac Severe GI upset Verified 09/23/25 11:15 levofloxacin (From Levaquin) AdvReac Other Verified 09/23/25 11:15 Family History Father Cancer Prostate Mother Depression Uncle Myocardial infarction Son CVA (cerebral vascular accident) Surgical History History of esophagogastroduodenoscopy (EGD) Hx of colonoscopy History of ERCP History of bilateral cataract extraction History of foot surgery (~02/2023) excision of skin cancer History of hammer toe correction (09/26/20) History of partial amputation of toe History of hernia repair History of tonsillectomy and adenoidectomy Social History Smoking Status: Former smoker pack-years: 30 alcohol intake: current alcohol intake frequency: holidays/special occasions only substance use type: does not use caffeine: Yes Type: coffee Number of servings: 2 what type of physical activity do you participate in: running and weight training frequency: 1-2 times per week Review of Systems (Anesthesia) ROS Narrative System reviewed and no additional complaints, except as documented. Physical Exam Const alert, oriented x3 and average body habitus Resp normal respiratory effort, normal air movement and clear to auscultation bilaterally Cardio regular rate, regular rhythm, no murmurs and diaphoretic
--- NOTE | 2025-09-23 14:15 | OP.ERCP_ITS ---
Patient Name: Navid Hatch Procedure Date: 09/23/2025 12:53 PM Date of : 1945 Age: 80 Procedure: ERCP Indications: Pancreatic duct stone, Pancreatic duct stricture, Stent change, Biliary stent removal, Pancreatic stent removal Providers: Dayday Sullivan DO Referring MD: Jose Turner Medicines: General Anesthesia Patient Profile: This is an 80 year old male. Refer to note in patient chart for documentation of history and physical. Patient has symptoms of chronic right upper quadrant abdominal pain and chronic epigastric abdominal pain. His most recent ERCP for stent and ERCP for stone removal was within the past six months. Complications: No immediate complications. Procedure: Pre-Anesthesia Assessment: - Prior to the procedure, a History and Physical was performed, and patient medications and allergies were reviewed. The patient is competent. The risks and benefits of the procedure and the sedation options and risks were discussed with the patient. All questions were answered and informed consent was obtained. Patient identification and proposed procedure were verified by the physician in the pre-procedure area. Mental Status Examination: alert and oriented. Airway Examination: normal oropharyngeal airway and neck mobility. Respiratory Examination: clear to auscultation. CV Examination: normal. Prophylactic Antibiotics: The patient does not require prophylactic antibiotics. Prior Anticoagulants: The patient has taken no anticoagulant or antiplatelet agents. ASA Grade Assessment: II - A patient with mild systemic disease. After reviewing the risks and benefits, the patient was deemed in satisfactory condition to undergo the procedure. The anesthesia plan was to use general anesthesia. Immediately prior to administration of medications, the patient was re-assessed for adequacy to receive sedatives. The heart rate, respiratory rate, oxygen saturations, blood pressure, adequacy of pulmonary ventilation, and response to care were monitored throughout the procedure. The physical status of the patient was re-assessed after the procedure. After obtaining informed consent, the scope was passed under direct vision. Throughout the procedure, the patient's blood pressure, pulse, and oxygen saturations were monitored continuously. The Duodenoscope was introduced through the mouth, and advanced to the duodenum and used to inject contrast into the bile, dorsal and ventral pancreatic ducts. The ERCP was accomplished with ease. Scope In: 1:25:45 PM Scope Out: 1:58:01 PM Total Procedure Duration Time 0 hours 32 minutes 16 seconds Findings: The watcher automat long goods film was normal. The esophagus was successfully intubated under direct vision. The scope was advanced to a normal major papilla in the descending duodenum without detailed examination of the pharynx, larynx and associated structures, and upper GI tract. The upper GI tract was grossly normal. The ventral pancreatic duct was deeply cannulated with the short-nosed traction sphincterotome. Contrast was injected. I personally interpreted the bile duct and pancreatic duct images. There was brisk flow of contrast through the ducts. Image quality was adequate. Contrast extended to the bifurcation. Contrast extended to the hepatic ducts. Contrast extended to the entire biliary tree. Contrast extended to the pancreatic duct. The ventral pancreatic duct in the head of the pancreas, pancreatic duct in the body of the pancreas and pancreatic duct branches contained multiple stones. The ventral pancreatic duct in the head of the pancreas was partially obstructed by what appeared to be a stone. The entire opacified area was dilated diffusely. Prestenotic changes, including dilation of the main pancreatic duct, abnormal side branches and dilation of side branches, were seen in the entire opacified area, consistent with marked chronic pancreatitis. A long 0.025 inch Jagwire was passed into the ventral pancreatic duct. A 5 mm ventral pancreatic sphincterotomy was made with a traction (standard) sphincterotome using ERBE electrocautery. There was no post-sphincterotomy bleeding. To discover objects, the biliary tree was swept with a 12 mm balloon starting at the main pancreatic duct and pancreatic duct branches. Three stones were removed. Two stones remained. The pancreatic duct contained one temporary stent. This was found to be visibly occluded. The stent was removed using a snare. It was shown to be occluded via the water column test. A 10 Fr by 5 cm temporary stent was placed 5 cm into the pancreatic duct. Clear fluid flowed through the stent. The stent was in good position. One stent was removed from the biliary tree using a snare and sent for cytology. The stent was found to be occluded via the water column test. A long 0.021 inch Jagwire was passed into the biliary tree. The short-nosed traction sphincterotome was passed over the guidewire and the bile duct was then deeply cannulated. Contrast was injected. Opacification of the main bile duct, common hepatic duct and left and right hepatic ducts and all intrahepatic branches was successful. The maximum diameter of the ducts was 10 mm. The lower third of the main bile duct contained one stone, which was 6 mm in diameter. The entire opacified area, main bile duct and entire biliary tree were moderately dilated, with a stone causing an obstruction. The largest diameter was 15 mm. A cholecystectomy had been performed. A 5 mm biliary sphincterotomy was made with a traction (standard) sphincterotome using ERBE electrocautery. There was no post-sphincterotomy bleeding. The biliary tree was swept with a 12 mm balloon starting at the bifurcation. Sludge was swept from the duct. All stones were removed. Impression: - The entire main bile duct and entire biliary tree were moderately dilated, with a stone causing an obstruction. - The patient has had a cholecystectomy. - Dilatation of the entire opacified area of the pancreatic duct was found diffusely. - A pancreatic obstruction secondary to a stone was found in the head of the pancreas. - Choledocholithiasis was found. Complete removal was accomplished by biliary sphincterotomy and balloon extraction. - Idiopathic marked chronic pancreatitis. 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 Partial removal was accomplished. - A pancreatic sphincterotomy was performed. - The biliary tree was swept. - One stent was exchanged in the pancreatic duct. - One stent was removed from the biliary tree. - A biliary sphincterotomy was performed. - The biliary tree was swept. Procedure Code(s): --- Professional --- 95237, Endoscopic retrograde cholangiopancreatography (ERCP); with removal and exchange of stent(s), biliary or pancreatic duct, including pre- and post-dilation and guide wire passage, when performed, including sphincterotomy, when performed, each stent exchanged 84039, 51, Endoscopic retrograde cholangiopancreatography (ERCP); with removal of calculi/debris from biliary/pancreatic duct(s) 29992, 59, Endoscopic retrograde cholangiopancreatography (ERCP); with sphincterotomy/papillotomy 07775, 26, Combined endoscopic catheterization of the biliary and pancreatic ductal systems, radiological supervision and interpretation CPT copyright 2021 [employer]. All rights reserved. The codes documented in this report are preliminary and upon slitting machine operator helper review may be revised to meet current compliance requirements. Dayday Sullivan DO 09/23/2025 2:15:13 PM This report has been signed electronically. Number of Addenda: 0 Note Initiated On: 09/23/2025 12:53 PM
--- NOTE | 2025-09-23 14:15 | OP.PROVAT_ITS ---
09/23/2025 Jose Turner [address] [facility] [place] [address] Re : ERCP procedure for Navid Hatch Dear Dr. Turner This procedure was performed on Tuesday, September 23, 2025. My impressions and recommendations are as follows: Impressions : - The entire main bile duct and entire biliary tree were moderately dilated, with a stone causing an obstruction. - The patient has had a cholecystectomy. - Dilatation of the entire opacified area of the pancreatic duct was found diffusely. - A pancreatic obstruction secondary to a stone was found in the head of the pancreas. - Choledocholithiasis was found. Complete removal was accomplished by biliary sphincterotomy and balloon extraction. - Idiopathic marked chronic pancreatitis. 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 Partial removal was accomplished. - A pancreatic sphincterotomy was performed. - The biliary tree was swept. - One stent was exchanged in the pancreatic duct. - One stent was removed from the biliary tree. - A biliary sphincterotomy was performed. - The biliary tree was swept. Recommendations : My findings are described in the full procedure note, which is enclosed. If I can be of further assistance, please feel free to contact me at . Sincerely, Dayday Sullivan DO 09/23/2025 2:15:13 PM This report has been signed electronically.
--- NOTE | 2025-09-23 14:32 | PCM.POST.ANE ---
Anesthesia: Postop Eval I Current Vital Signs Temperature: 97 F Pulse Rate: 81 Blood Pressure: 129/83 Respiratory Rate: 16 Pulse Ox: 99 Oxygen Delivery Method: Room Air Assessment Airway patent: Yes Spontaneous unlabored respirations: Yes Mental status: Awake and Calm nausea: No Vomiting: No Anesthesia Complication: No Fluid Hydration Crystalloid volume administer (ml): 800 Total IV fluid infused: 800 Progress Note Anesthesia document: Postop Eval 1 completed: Yes
--- NOTE | 2025-09-23 16:39 | PCM.POSTANE2 ---
Anesthesia Postop Eval I Sum Postop Eval Completion status Anesthesia document: Postop Eval 1 completed: Yes Anesthesia Postop Eval I Summary Anesthesia Postop Eval I Summary: Anesthesia Postop Eval I: Assessment Summary Airway patent Yes 09/23/25 14:33 [email or web address] Spontaneous unlabored Yes 09/23/25 14:33 [email or web address] respirations Mental status Awake,Calm 09/23/25 14:33 [email or web address] nausea No 09/23/25 14:33 [email or web address] Vomiting No 09/23/25 14:33 [email or web address] Anesthesia Postop Eval I: Fluid Summary Crystalloid volume administer 800 09/23/25 14:33 [email or web address] (ml) Colloids volume administered ( ml) Blood Product volume administered (ml) Total IV fluid infused 800 09/23/25 14:33 [email or web address] Anesthesia Postop Eval I: Summary Notes Anesthesia Complication No 09/23/25 14:33 [email or web address] Anesthesia Complication Comment: Post-operative progress note Anesthesia: Postop Eval II Evaluation Mental status: Awake Pain Level: 0 nausea: No Vomiting: No Complications Anesthesia Complication: No
== END 2025-09-23 15:15 | disposition home or self-care (01) ==
LOC: EN 10:41 → AC 10:42
PROVIDERS: PCP Family Medicine; Referring Provider Family Medicine; Visit Provider Internal Medicine Gastroenterology
DX: K86.1 Other chronic pancreatitis (principal); J44.9 Chronic obstructive pulmonary disease, unspecified; I48.20 Chronic atrial fibrillation, unspecified; E11.22 Type 2 diabetes mellitus with diabetic chronic kidney disease; N18.30 Chronic kidney disease, stage 3 unspecified; E78.00 Pure hypercholesterolemia, unspecified; Z87.891 Personal history of nicotine dependence; I12.9 Hypertensive chronic kidney disease with stage 1 through stage 4 chronic kidney disease, or unspecified chronic kidney disease; Z79.899 Other long term (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; Z79.01 Long term (current) use of anticoagulants; K86.89 Other specified diseases of pancreas; K80.51 Calculus of bile duct without cholangitis or cholecystitis with obstruction; I65.23 Occlusion and stenosis of bilateral carotid arteries
CPT/HCPCS: 43276; 00732; 74330; 76000; 82962; 88108; 88305; 88313; C2625; J2405